=== PATIENT | female | born 1955 | race Caucasian/White ===

== ENCOUNTER 2022-11-07 01:15 | Outpatient (REF) | payer MEDICARE, MEDICAID, SELFPAY ==
[2022-11-07 22:24] LABS: Estimated GFR (African America 51 (>=60); Estimated GFR (Non-African Ame 42 (>=60)
[2022-11-15 14:15] LABS: Lithium (Eskalith(R)), Serum 0.7 mmol/L (0.5-1.2)
== END 2022-11-07 01:16 ==
LOC: LAB 01:15
PROVIDERS: PCP Psychiatry & Neurology Psychiatry; Visit Provider Psychiatry & Neurology Psychiatry
DX: F25.0 Schizoaffective disorder, bipolar type (principal)
CPT/HCPCS: 36415; 80178; 82565

== ENCOUNTER 2023-02-22 00:48 | Outpatient (REF) | payer MEDICARE, MEDICAID, SELFPAY ==
[2023-02-22 09:15] LABS: Basophils Absolute Auto 0.1 10^3/uL (0.0-0.1); Basophils Percent Auto 1.1 % (0.2-2.0); Eosinophils Absolute Auto 0.2 10^3/uL (0.0-0.7); Eosinophils Percent Auto 5.3 % (0.9-7.0); Hematocrit 38.3 % (36.0-48.0); Hemoglobin 12.1 g/dL (12.0-16.0); Immature Granulocytes Abs Auto 0.02 10^3/uL (0.00-0.03); Immature Granulocytes Pct Auto 0.4 % (0.0-0.5); Lymphocytes Absolute Auto 1.8 10^3/uL (1.2-3.8); Lymphocytes Percent Auto 38.7 % (20.5-60.0); Mean Corpuscular HGB Conc 31.6 g/dL (29.9-35.2); Mean Corpuscular Hemoglobin 32.2 pg (26.7-34.0); Mean Corpuscular Volume 101.9 fL (81.0-99.0); Mean Platelet Volume 10.8 fL (9.5-13.5); Monocytes Absolute Auto 0.4 10^3/uL (0.3-0.8); Monocytes Percent Auto 7.7 % (1.7-12.0); Neutrophils Absolute Auto 2.1 10^3/uL (1.4-6.5); Neutrophils Percent Auto 46.8 % (43.0-75.0); Platelet Count 225 10^3/uL (150-450); Red Blood Count 3.76 10^6/uL (4.20-5.40); Red Cell Distribution Width 12.9 % (11.0-15.0); White Blood Count 4.5 10^3/uL (4.0-11.0)
[2023-02-22 09:46] LABS: Alanine Aminotransferase 23 U/L (14-59); Albumin Globulin Ratio 1.1; Albumin Level 3.7 g/dL (3.4-5.0); Alkaline Phosphatase 120 U/L (46-116); Aspartate Amino Transferase 17 U/L (15-37); BUN Creatinine Ratio 17.5; Bilirubin Total 0.2 mg/dL (0.2-1.0); Calcium 9.7 mg/dL (8.5-10.1); Carbon Dioxide 23.8 mmol/L (21.0-32.0); Chloride 105 mmol/L (98-107); Chol HDL Ratio 2.3; Cholesterol 146 mg/dL (<=200); Estimated GFR (African America 47 (>=60); Estimated GFR (Non-African Ame 39 (>=60); Globulin 3.3 g/dL; Glucose 152 mg/dL (74-106); HDL Cholesterol 63 mg/dL (40-60); Potassium 3.8 mmol/L (3.5-5.1); Sodium 141 mmol/L (136-145); Thyroid Stimulating Hormone 0.809 uIU/mL (0.358-3.740); Triglycerides 68 mg/dL (<=150); VLDL CHOLESTEROL 13.6 mg/dL
== END 2023-02-22 00:49 | disposition home or self-care (01) ==
LOC: LAB 00:48
DX: Z00.00 Encounter for general adult medical examination without abnormal findings (principal)
CPT/HCPCS: 36415; 80053; 80061; 84443; 85025

== ENCOUNTER 2023-03-11 17:13 | Emergency (ER) | payer MEDICARE, MEDICAID, SELFPAY ==
[2023-03-11] VITALS (7 sets, daily range): BP systolic 142–162; BP diastolic 81–104; PULSE 76–96; RESP 17–18; TEMP 36.4; O2SAT 96–98; BMI 24.8
--- NOTE | 2023-03-11 17:15 | PC.NURSE ---
Received call from Lynn from [facility]. Patient is coming in by squad. Non-complaint with medications. Suffers from Schizoaffective disorder. already admitted at [facility]. She just needs medical clearance. Call [phone] when medically cleared.
--- NOTE | 2023-03-11 17:19 | ED_ITS ---
HPI - General Adult General Chief complaint: Psychiatric Symptoms Stated complaint: Medical Clearance, Psych disorder Time Seen by Provider: 03/11/23 17:17 History of Present Illness HPI narrative: Patient is a 67-year-old female who has a past medical history of schizoaffective disorder, bipolar type. Patient is type II diabetic, she has history of Parkinson's, headaches, chronic obstructive pulmonary disease, asthma. There is a note from [facility] from March 11 this stated last one patient had delusions that her daughter was committing suicide. She was better after she had talked to her daughter. Patient normally talks very loud to herself during appointments. Patient is a full code. Patient has a significant ALLERGY list, please refer to [facility] paperwork. Patient is on lithium. The only medication the patient is aware of is that she stopped S eroquel 3 weeks ago because she says there was a misunderstanding with her therapist and she thought that she was supposed to stop Seroquel 3 weeks ago because it was causing her to act out. Patient Has intermittent headaches, patient will typically take extra strength Tylenol for headaches that helps. She has no vision or hearing changes at this time. She is not delirious. No hallucinating. She is very appropriate, very pleasant, following commands, answers questions appropriately. Patient states she does have a headache and she is hungry, we will get her something to eat and drink. Patient is aware that she is getting admitted to [facility] for readjustment of her medications and starting her medications again. Patient is on Parkinson's medications, . All systems are negative except as noted/marked. All systems reviewed and otherwise negative. . Nurses note and vital signs reviewed and patient is not hypoxic. General: The patient appears well and in no apparent distress. Patient is resting comfortably on cart. Patient is not toxic, lethargic, or listless Skin: Warm, dry, no pallor noted. There is no rash noted. No petechiae, purpura. No signs of cutting or self harm. Head: Normocephalic, atraumatic Eye: Normal conjunctiva, no drainage, EOMI. PERRL Ears, Nose, Mouth, and Throat: oral mucosa is moist. Nares patent. Mouth without vesicles. Cardiovascular: Regular Rate and Rhythm, no murmur, gallop, rub Respiratory: Patient is in no distress, no accessory muscle use, lungs are clear to auscultation, no wheezing, rales or rhonchi Back: non-tender, no CVA tenderness bilaterally to percussion. No CT LS midline pain GI: soft, no tenderness to palpation, no masses appreciated. No rebound, guarding, or rigidity noted. No flank pain bilateral, No distention Musculoskeletal: Patient has full range of motion of all of the extremities, no motor, sensory, or focal neurological deficits Neurological: A&O x3, normal speech Psychiatric: Cooperative, Patient is not suicidal or homicidal. Related Data Home Medications Medication Instructions Recorded Confirmed amantadine HCl 100 mg tablet 100 mg PO DAILY 03/11/23 03/11/23 benztropine 0.5 mg tablet 0.5 mg PO DAILY 03/11/23 03/11/23 lithium carbonate 150 mg capsule 150 mg PO BID 03/11/23 03/11/23 quetiapine 300 mg tablet (Seroquel) 700 mg PO DAILY 03/11/23 03/11/23 Allergies Allergy/AdvReac Type Severity Reaction Status Date / Time Penicillins Allergy Severe Anaphylaxis Verified 03/11/23 17:21 codeine Allergy Verified 03/11/23 17:21 Sulfa (Sulfonamide AdvReac Mild Altered Verified 03/11/23 17:21 Antibiotics) Sense of Taste PFSH PFSH Social History Smoking status: Current every day smoker Exam Constitutional Vital Signs, click to edit/add: Last Vital Signs Temp 97.5 F L 03/11/23 17:16 Pulse 96 H 03/11/23 17:16 Resp 18 03/11/23 17:16 BP 142/86 H 03/11/23 18:35 Pulse Ox 97 03/11/23 17:16 O2 Del Method Room Air 03/11/23 17:16 Course Vital Signs Vital signs: Vital Signs Temperature 97.5 F L 03/11/23 17:16 Pulse Rate 96 H 03/11/23 17:16 Respiratory Rate 18 03/11/23 17:16 Blood Pressure 162/104 H 03/11/23 17:16 Pulse Oximetry 97 03/11/23 17:16 Oxygen Delivery Method Room Air 03/11/23 17:16 Temperature 97.5 F L 03/11/23 17:16 Pulse Rate 96 H 03/11/23 17:16 Respiratory Rate 18 03/11/23 17:16 Blood Pressure 142/86 H 03/11/23 18:35 Pulse Oximetry 97 03/11/23 17:16 Oxygen Delivery Method Room Air 03/11/23 17:16 Medical Decision Making MDM Narrative Medical decision making narrative: There is a pink slip that was signed at 5 PM the patient is admitted and accepted at [facility]. The 4th box was marked on the pink slip that the patient would benefit from treatment in the hospital setting. Patient represents a substantial risk of physical harm to herself and others if she remains at [facility] pending examination. 1830 Patient is medically clear. COVID is currently pending secondary to [facility]'s protocol. 1899 patient will be transitioned to Dr. Benitez to watch the patient until she is finally picked up and transferred to [facility]. Patient has already been medically cleared, pink slip is 30 been signed by psychiatrist, [address] [place] [address] at [facility] has Already accepted the patient. Critical care time 35 minutes exclusive from separate billable procedures that were performed. The following was considered in the determination of critical care but not limited to the level of medical decision making, intensive cardiac and/or respiratory monitoring, frequent vital sign monitoring, evaluation of laboratory studies, evaluation of radiographic studies, oxygen monitoring, and constant monitoring and speaking to family at bedside. Lab Data Labs: Lab Results 03/11/23 03/11/23 Range/Units 17:27 18:24 WBC 5.3 (4.0-11.0) 10^3/uL RBC 4.13 L (4.20-5.40) 10^6/uL Hgb 13.5 (12.0-16.0) g/dL Hct 40.8 (36.0-48.0) % MCV 98.8 (81.0-99.0) fL MCH 32.7 (26.7-34.0) pg MCHC 33.1 (29.9-35.2) g/dL RDW 12.4 (11.0-15.0) % Plt Count 238 (150-450) 10^3/uL MPV 10.1 (9.5-13.5) fL Neut % (Auto) 57.1 (43.0-75.0) % Lymph % (Auto) 29.9 (20.5-60.0) % [place] % (Auto) 8.3 (1.7-12.0) % Eos % (Auto) 3.2 (0.9-7.0) % Baso % (Auto) 1.1 (0.2-2.0) % Neut # (Auto) 3.0 (1.4-6.5) 10^3/uL Lymph # (Auto) 1.6 (1.2-3.8) 10^3/uL [place] # (Auto) 0.4 (0.3-0.8) 10^3/uL Eos # (Auto) 0.2 (0.0-0.7) 10^3/uL Baso # (Auto) 0.1 (0.0-0.1) 10^3/uL Abs Immat Gran (auto) 0.02 (0.00-0.03) 10^3/uL Imm/Tot Granulo (auto) 0.4 (0.0-0.5) % Sodium 135 L (136-145) mmol/L Potassium 4.1 (3.5-5.1) mmol/L Chloride 105 (98-107) mmol/L Carbon Dioxide 22.9 (21.0-32.0) mmol/L Anion Gap 11.2 BUN 34.0 H (7.0-18.0) mg/dL Creatinine 1.58 H (0.55-1.02) mg/dL Est GFR ( Amer) 40 L (>=60) Est GFR (Non-Af Amer) 33 L (>=60) BUN/Creatinine Ratio 21.5 Glucose 109 H (74-106) mg/dL Calcium 9.5 (8.5-10.1) mg/dL Total Bilirubin 0.2 (0.2-1.0) mg/dL AST 14 L (15-37) U/L ALT 30 (14-59) U/L Alkaline Phosphatase 120 H (46-116) U/L Total Protein 7.5 (6.4-8.2) g/dL Albumin 4.0 (3.4-5.0) g/dL Globulin 3.5 g/dL Albumin/Globulin Ratio 1.1 Urine Color Lt. yellow (YELLOW) Urine Clarity Slightly cloudy A (CLEAR) Urine pH 7.0 (5.0-9.0) Ur Specific [place] 1.010 (1.005-1.025) Urine Protein Negative (NEG/TRACE) mg/dL Urine Glucose (UA) Negative (NEGATIVE) mg/dL Urine Ketones Negative (NEGATIVE) mg/dL Urine Occult Blood Negative (NEGATIVE) Urine Nitrite Negative (NEGATIVE) Urine Bilirubin Negative (NEGATIVE) Urine Urobilinogen 0.2 (0.2-1.0) EU/dL Ur Leukocyte Esterase Moderate A (NEGATIVE) Urine RBC None seen (0-2) #/HPF Urine WBC 5-10 A (NONE SEEN) #/HPF Ur Squamous Epith Cells None seen (NONE/RARE) #/LPF Urine Crystals None seen (None Seen) #/HPF Urine Bacteria Trace A (NONE SEEN) #/HPF Urine Casts None seen (NONE SEEN) #/LPF Urine Mucus None seen (NONE SEEN) Ur Culture Indicated? Yes Salicylates <2.8 (<=19.9) mg/dL Urine Opiates Screen Negative (NEGATIVE) Ur Buprenorphine Scrn Negative (NEGATIVE) Ur Oxycodone Screen Negative (NEGATIVE) Urine Methadone Screen Negative (NEGATIVE) Ur Propoxyphene Screen Negative (NEGATIVE) Acetaminophen <2.0 L (10.0-30.0) ug/mL Ur Barbiturates Screen Negative (NEGATIVE) U Tricyclic Antidepress Positive A (NEGATIVE) Ur Phencyclidine Scrn Negative (NEGATIVE) Ur Amphetamines Screen Negative (NEGATIVE) U Methamphetamines Scrn Negative (NEGATIVE) U Benzodiazepines Scrn Negative (NEGATIVE) Urine Cocaine Screen Negative (NEGATIVE) U Cannabinoids Screen Negative (NEGATIVE) Ethanol Quant <3 mg/dL Discharge Plan Discharge Chief Complaint: Psychiatric Symptoms Clinical Impression: Chronic schizophrenia Patient Disposition: [facility] Discharge location: [address] Condition: Fair
--- NOTE | 2023-03-11 17:24 | ECG_ITS ---
The [facility] Test Date: 2023-03-11 Pat Name: MARTÍNEZ ALMEIDA Department: Room: - Gender: Female Casing In Line Feeder: : 1955 Requested By: 1030 Order Number: [id number] Reading MD: ALANNAH BRAND Measurements Intervals [place] Rate: 77 P: 56 W[place]: 184 QRS: -75 QRSD: 138 T: 50 QT: 412 QTc: 444 Interpretive Statements 1100 Sinus rhythm 2450 Right bundle branch block 2630 Left anterior fascicular block 3423 Possible septal myocardial infarction, probably old 9150 abnormal ECG No previous ECG available for comparison Electronically Signed On 03-12-2023 7:04:46 EDT by ALANNAH BRAND
[2023-03-11 17:38] LABS: Basophils Absolute Auto 0.1 10^3/uL (0.0-0.1); Basophils Percent Auto 1.1 % (0.2-2.0); Eosinophils Absolute Auto 0.2 10^3/uL (0.0-0.7); Eosinophils Percent Auto 3.2 % (0.9-7.0); Hematocrit 40.8 % (36.0-48.0); Hemoglobin 13.5 g/dL (12.0-16.0); Immature Granulocytes Abs Auto 0.02 10^3/uL (0.00-0.03); Immature Granulocytes Pct Auto 0.4 % (0.0-0.5); Lymphocytes Absolute Auto 1.6 10^3/uL (1.2-3.8); Lymphocytes Percent Auto 29.9 % (20.5-60.0); Mean Corpuscular HGB Conc 33.1 g/dL (29.9-35.2); Mean Corpuscular Hemoglobin 32.7 pg (26.7-34.0); Mean Corpuscular Volume 98.8 fL (81.0-99.0); Mean Platelet Volume 10.1 fL (9.5-13.5); Monocytes Absolute Auto 0.4 10^3/uL (0.3-0.8); Monocytes Percent Auto 8.3 % (1.7-12.0); Neutrophils Percent Auto 57.1 % (43.0-75.0); Platelet Count 238 10^3/uL (150-450); Red Blood Count 4.13 10^6/uL (4.20-5.40); Red Cell Distribution Width 12.4 % (11.0-15.0); White Blood Count 5.3 10^3/uL (4.0-11.0)
[2023-03-11 17:49] LABS: Alanine Aminotransferase 30 U/L (14-59); Albumin Globulin Ratio 1.1; Alkaline Phosphatase 120 U/L (46-116); Anion Gap 11.2; Aspartate Amino Transferase 14 U/L (15-37); BUN Creatinine Ratio 21.5; Bilirubin Total 0.2 mg/dL (0.2-1.0); Calcium 9.5 mg/dL (8.5-10.1); Carbon Dioxide 22.9 mmol/L (21.0-32.0); Chloride 105 mmol/L (98-107); Estimated GFR (African America 40 (>=60); Estimated GFR (Non-African Ame 33 (>=60); Ethanol <3 mg/dL; Globulin 3.5 g/dL; Glucose 109 mg/dL (74-106); Potassium 4.1 mmol/L (3.5-5.1); Salicylate <2.8 mg/dL (<=19.9); Sodium 135 mmol/L (136-145); Total Protein 7.5 g/dL (6.4-8.2)
[2023-03-11 17:51] LABS: Acetaminophen <2.0 ug/mL (10.0-30.0)
[2023-03-11 18:32] LABS: Bilirubin Urine NEGATIVE (NEGATIVE); Blood Urine NEGATIVE (NEGATIVE); Color Urine LT. YELLOW (YELLOW); Glucose Urine UA NEGATIVE (NEGATIVE); Ketones Urine NEGATIVE (NEGATIVE); Leukocyte Esterase Urine MODERATE (NEGATIVE); Nitrite Urine NEGATIVE (NEGATIVE); Protein Urine NEGATIVE (NEG/TRACE); Urobilinogen Urine 0.2 EU/dL (0.2-1.0)
[2023-03-11 18:33] LABS: Clarity Urine SLIGHTLY CLOUDY (CLEAR); Urine Microscopic Indicated YES
[2023-03-11 18:38] LABS: Bacteria Urine TRACE #/HPF (NONE SEEN); Cast Seen? NONE SEEN #/LPF (NONE SEEN); Crystals Seen? None Seen #/HPF (None Seen); Mucus Urine NONE SEEN (NONE SEEN); RBC Urine NONE SEEN #/HPF (0-2); Squamous Epithelial Cell Urine NONE SEEN #/LPF (NONE/RARE); Urine Culture Indicated YES
[2023-03-11 18:39] LABS: Amphetamine Screen Urine NEGATIVE (NEGATIVE); Barbiturates Screen Urine NEGATIVE (NEGATIVE); Benzodiazepines Screen Urine NEGATIVE (NEGATIVE); Buprenorphine Screen Urine NEGATIVE (NEGATIVE); Cannabinoid Screen Urine NEGATIVE (NEGATIVE); Cocaine Screen Urine NEGATIVE (NEGATIVE); Methadone Screen Urine NEGATIVE (NEGATIVE); Methamphetamines Screen Urine NEGATIVE (NEGATIVE); Opiate Screen Urine NEGATIVE (NEGATIVE); Oxycodone Screen Urine NEGATIVE (NEGATIVE); Phencyclidine Screen Urine NEGATIVE (NEGATIVE)
[2023-03-11 18:41] LABS: Tricyclic Antidepressant Urine POSITIVE (NEGATIVE)
[2023-03-11] MEDS: ACETAMINOPHEN 325 MG TABLET 650 MG PO (19:07)
[2023-03-11 19:14] LABS: SARS-CoV-2 Ag NEGATIVE (NEGATIVE)
--- NOTE | 2023-03-11 19:20 | ED.PSYCH1 ---
HPI - Psych General Chief Complaint: Psychiatric Symptoms Stated Complaint: Medical Clearance, Psych disorder Time Seen by Provider: 03/11/23 17:17 Source: Reports other Source comment: EMS Mode of arrival: ambulance Limitations: Reports altered mental status History of Present Illness HPI Narrative: The patient was initially seen by Dr. Reza and signed out to me after discussing the case with him thoroughly. Please see his full history and physical. Related Data Home Medications Medication Instructions Recorded Confirmed amantadine HCl 100 mg tablet 100 mg PO DAILY 03/11/23 03/11/23 benztropine 0.5 mg tablet 0.5 mg PO DAILY 03/11/23 03/11/23 lithium carbonate 150 mg capsule 150 mg PO BID 03/11/23 03/11/23 quetiapine 300 mg tablet (Seroquel) 700 mg PO DAILY 03/11/23 03/11/23 Allergies Allergy/AdvReac Type Severity Reaction Status Date / Time Penicillins Allergy Severe Anaphylaxis Verified 03/11/23 17:21 codeine Allergy Verified 03/11/23 17:21 Sulfa (Sulfonamide AdvReac Mild Altered Verified 03/11/23 17:21 Antibiotics) Sense of Taste PFSH PFSH Social History Smoking status: Current every day smoker Exam Constitutional Vital Signs, click to edit/add: Last Vital Signs Temp 97.5 F L 03/11/23 17:16 Pulse 76 03/11/23 17:30 Resp 18 03/11/23 17:30 BP 162/81 H 03/11/23 19:09 Pulse Ox 96 03/11/23 19:10 O2 Del Method Room Air 03/11/23 17:16 Course Vital Signs Vital signs: Vital Signs Temperature 97.5 F L 03/11/23 17:16 Pulse Rate 96 H 03/11/23 17:16 Respiratory Rate 18 03/11/23 17:16 Blood Pressure 162/104 H 03/11/23 17:16 Pulse Oximetry 97 03/11/23 17:16 Oxygen Delivery Method Room Air 03/11/23 17:16 Temperature 97.5 F L 03/11/23 17:16 Pulse Rate 76 03/11/23 17:30 Respiratory Rate 18 03/11/23 17:30 Blood Pressure 162/81 H 03/11/23 19:09 Pulse Oximetry 96 03/11/23 19:10 Oxygen Delivery Method Room Air 03/11/23 17:16 MDM - Psych MDM Narrative Medical decision making narrative: urinalysis indicates mild urinary tract infection and she started on Macrobid here and given a written prescription for that medication. She is being transferred to [facility]. Lab Data Attestation: I reviewed the patient's lab results. Labs: Lab Results 03/11/23 03/11/23 03/11/23 Range/Units 17:27 18:24 18:47 WBC 5.3 (4.0-11.0) 10^3/uL RBC 4.13 L (4.20-5.40) 10^6/uL Hgb 13.5 (12.0-16.0) g/dL Hct 40.8 (36.0-48.0) % MCV 98.8 (81.0-99.0) fL MCH 32.7 (26.7-34.0) pg MCHC 33.1 (29.9-35.2) g/dL RDW 12.4 (11.0-15.0) % Plt Count 238 (150-450) 10^3/uL MPV 10.1 (9.5-13.5) fL Neut % (Auto) 57.1 (43.0-75.0) % Lymph % (Auto) 29.9 (20.5-60.0) % [place] % (Auto) 8.3 (1.7-12.0) % Eos % (Auto) 3.2 (0.9-7.0) % Baso % (Auto) 1.1 (0.2-2.0) % Neut # (Auto) 3.0 (1.4-6.5) 10^3/uL Lymph # (Auto) 1.6 (1.2-3.8) 10^3/uL [place] # (Auto) 0.4 (0.3-0.8) 10^3/uL Eos # (Auto) 0.2 (0.0-0.7) 10^3/uL Baso # (Auto) 0.1 (0.0-0.1) 10^3/uL Abs Immat Gran (auto) 0.02 (0.00-0.03) 10^3/uL Imm/Tot Granulo (auto) 0.4 (0.0-0.5) % Sodium 135 L (136-145) mmol/L Potassium 4.1 (3.5-5.1) mmol/L Chloride 105 (98-107) mmol/L Carbon Dioxide 22.9 (21.0-32.0) mmol/L Anion Gap 11.2 BUN 34.0 H (7.0-18.0) mg/dL Creatinine 1.58 H (0.55-1.02) mg/dL Est GFR ( Amer) 40 L (>=60) Est GFR (Non-Af Amer) 33 L (>=60) BUN/Creatinine Ratio 21.5 Glucose 109 H (74-106) mg/dL Calcium 9.5 (8.5-10.1) mg/dL Total Bilirubin 0.2 (0.2-1.0) mg/dL AST 14 L (15-37) U/L ALT 30 (14-59) U/L Alkaline Phosphatase 120 H (46-116) U/L Total Protein 7.5 (6.4-8.2) g/dL Albumin 4.0 (3.4-5.0) g/dL Globulin 3.5 g/dL Albumin/Globulin Ratio 1.1 Urine Color Lt. yellow (YELLOW) Urine Clarity Slightly cloudy A (CLEAR) Urine pH 7.0 (5.0-9.0) Ur Specific [place] 1.010 (1.005-1.025) Urine Protein Negative (NEG/TRACE) mg/dL Urine Glucose (UA) Negative (NEGATIVE) mg/dL Urine Ketones Negative (NEGATIVE) mg/dL Urine Occult Blood Negative (NEGATIVE) Urine Nitrite Negative (NEGATIVE) Urine Bilirubin Negative (NEGATIVE) Urine Urobilinogen 0.2 (0.2-1.0) EU/dL Ur Leukocyte Esterase Moderate A (NEGATIVE) Urine RBC None seen (0-2) #/HPF Urine WBC 5-10 A (NONE SEEN) #/HPF Ur Squamous Epith Cells None seen (NONE/RARE) #/LPF Urine Crystals None seen (None Seen) #/HPF Urine Bacteria Trace A (NONE SEEN) #/HPF Urine Casts None seen (NONE SEEN) #/LPF Urine Mucus None seen (NONE SEEN) Ur Culture Indicated? Yes Salicylates <2.8 (<=19.9) mg/dL Urine Opiates Screen Negative (NEGATIVE) Ur Buprenorphine Scrn Negative (NEGATIVE) Ur Oxycodone Screen Negative (NEGATIVE) Urine Methadone Screen Negative (NEGATIVE) Ur Propoxyphene Screen Negative (NEGATIVE) Acetaminophen <2.0 L (10.0-30.0) ug/mL Ur Barbiturates Screen Negative (NEGATIVE) U Tricyclic Antidepress Positive A (NEGATIVE) Ur Phencyclidine Scrn Negative (NEGATIVE) Ur Amphetamines Screen Negative (NEGATIVE) U Methamphetamines Scrn Negative (NEGATIVE) U Benzodiazepines Scrn Negative (NEGATIVE) Urine Cocaine Screen Negative (NEGATIVE) U Cannabinoids Screen Negative (NEGATIVE) Ethanol Quant <3 mg/dL SARS-CoV-2 (PCR) Negative (NEGATIVE) Discharge Plan Discharge Chief Complaint: Psychiatric Symptoms Clinical Impression: Chronic schizophrenia, Urinary tract infection Patient Disposition: [facility] Time of Disposition Decision: 19:18 Discharge location: [address] Condition: Fair Mode of Transportation: EMS
[2023-03-11] MEDS: NITROFURANTOIN MONOHYD/MAC-CRST 100 MG CAPSULE PO (19:34)
[2023-03-11] MEDS: TOPIRAMATE 25 MG TABLET 75 MG PO (23:22)
[2023-03-11] MEDS: LITHIUM CARBONATE 150 MG CAPSULE PO (23:22)
[2023-03-11] MEDS: AMANTADINE HCL 100 MG CAPSULE PO (23:22)
[2023-03-11] MEDS: BENZTROPINE MESYLATE 1 MG TABLET PO (23:22)
[2023-03-12 15:52] LABS: SARS-CoV-2 NAA INVALID (NOT DETECTE)
== END 2023-03-11 23:47 ==
PROVIDERS: Emergency Medicine; Emergency Provider Emergency Medicine
DX: F20.9 Schizophrenia, unspecified (principal); N39.0 Urinary tract infection, site not specified; E11.9 Type 2 diabetes mellitus without complications; J44.9 Chronic obstructive pulmonary disease, unspecified; Z79.899 Other long term (current) drug therapy; F17.210 Nicotine dependence, cigarettes, uncomplicated; Z20.822 Contact with and (suspected) exposure to COVID-19; G20.A1 Parkinson's disease without dyskinesia, without mention of fluctuations
CPT/HCPCS: 36415; 80053; 80178; 80179; 80307; 80320; 80329; 81001; 85025; 87086; 87635; 87811; 93005; 99285; U0003

== ENCOUNTER 2023-03-21 14:00 | Outpatient (REF) | payer MEDICARE, MEDICAID, SELFPAY ==
[2023-03-22 08:14] LABS: Bilirubin Urine NEGATIVE (NEGATIVE); Blood Urine NEGATIVE (NEGATIVE); Clarity Urine CLEAR (CLEAR); Color Urine LT. YELLOW (YELLOW); Glucose Urine UA NEGATIVE (NEGATIVE); Ketones Urine NEGATIVE (NEGATIVE); Leukocyte Esterase Urine TRACE (NEGATIVE); Nitrite Urine NEGATIVE (NEGATIVE); Protein Urine NEGATIVE (NEG/TRACE); Specific Gravity Urine <=1.005 (1.005-1.025); Urobilinogen Urine 0.2 EU/dL (0.2-1.0); pH Urine 6.5 (5.0-9.0)
[2023-03-22 08:16] LABS: Urine Microscopic Indicated YES
[2023-03-22 08:22] LABS: Bacteria Urine TRACE #/HPF (NONE SEEN); Cast Seen? NONE SEEN #/LPF (NONE SEEN); Crystals Seen? None Seen #/HPF (None Seen); Mucus Urine NONE SEEN (NONE SEEN); RBC Urine 0-2 #/HPF (0-2); Squamous Epithelial Cell Urine RARE #/LPF (NONE/RARE); Urine Culture Indicated NO; WBC Urine 0-2 #/HPF (NONE SEEN)
== END 2023-03-21 14:01 | disposition home or self-care (01) ==
LOC: LAB 14:00
DX: R30.0 Dysuria (principal)
CPT/HCPCS: 81001

== ENCOUNTER 2023-03-25 19:19 | Emergency (ER) | payer MEDICARE, MEDICAID, SELFPAY ==
[2023-03-25 19:21] VITALS: BP 186/95; PULSE 86; RESP 16; TEMP 36.4; O2SAT 98; BMI 24.8
--- NOTE | 2023-03-25 19:29 | ECG_ITS ---
[facility] Test Date: 2023-03-25 Pat Name: MARTÍNEZ ALMEIDA Department: Room: - Gender: Female Type Cutter: : 1955 Requested By: Order Number: [id number] Reading MD: ALANNAH BRAND Measurements Intervals [place] Rate: 73 P: 46 CT: 178 QRS: -62 QRSD: 148 T: 13 QT: 428 QTc: 454 Interpretive Statements 1100 Sinus rhythm 2450 Right bundle branch block 2630 Left anterior fascicular block 9150 abnormal ECG Compared to ECG 03/11/2023 17:24:05 No significant changes Electronically Signed On 03-26-2023 7:13:52 EDT by ALANNAH BRAND
--- NOTE | 2023-03-25 19:31 | ED_ITS ---
HPI - Psych General Chief Complaint: Psychiatric Symptoms Stated Complaint: psychiatric Time Seen by Provider: 03/25/23 19:25 Source: Reports patient Mode of arrival: ambulance Limitations: Reports no limitations History of Present Illness HPI Narrative: patient is a 67-year-old female to history of schizophrenia who presents to the emergency department by ambulance after being combative and agitated at the [facility] where she has a resident. She was recently admitted to [facility] and had an adjustment of her Seroquel. The nursing staff at [facility] states that the patient was combative, agitated and screaming and they could not contact the physician who is in charge of her Seroquel dosage so they sent her to the emergency department. Patient on arrival to the Emergency Room is calm, cooperative but refuses to speak about the incident at [facility]. She denies any focal medical complaints. She denies suicidal or homicidal ideation. Related Data Home Medications Medication Instructions Recorded Confirmed amantadine HCl 100 mg tablet 100 mg PO BID 03/11/23 03/25/23 benztropine 0.5 mg tablet 0.5 mg PO BID 03/11/23 03/25/23 lithium carbonate 150 mg capsule 150 mg PO BID 03/11/23 03/25/23 quetiapine 300 mg tablet (Seroquel) 700 mg PO DAILY 03/11/23 03/25/23 albuterol sulfate 90 mcg/actuation 2 inh inhalation Q6H PRN shortness 03/25/23 03/25/23 breath activated powder inhaler of breath or wheezing benzonatate 100 mg capsule 100 mg PO TID 03/25/23 03/25/23 calcium carbonate 500 mg-vitamin 1 tab PO DAILY 03/25/23 03/25/23 D3 5 mcg (200 unit) tablet (Oyster Shell Calcium-Vitamin D3) clonidine HCl 0.1 mg tablet 0.1 mg PO DAILY 03/25/23 03/25/23 dextromethorphan-guaifenesin 30 1 tab PO Q12H PRN congestion 03/25/23 03/25/23 mg-600 mg tablet extended hr (Mucus DM) docusate sodium 100 mg capsule 100 mg PO DAILY 03/25/23 03/25/23 famotidine 20 mg tablet 20 mg PO Q12H 03/25/23 03/25/23 fluticasone 250 mcg-salmeterol 50 1 inh inhalation Q12H 03/25/23 03/25/23 mcg/dose blistr powdr for inhalation (Wixela Inhub) fluticasone propionate 50 1 spray intranasal BID 03/25/23 03/25/23 mcg/actuation nasal spray,suspension (24 Hour Allergy Relief) folic acid 0.8 mg capsule 800 mcg PO DAILY 03/25/23 03/25/23 hydrocodone 5 mg-acetaminophen 325 1 tab PO Q6H PRN pain 03/25/23 03/25/23 mg tablet loratadine 10 mg tablet 10 mg PO Q24H 03/25/23 03/25/23 mecobalamin (vitamin B12) 5,000 5,000 mcg PO DAILY 03/25/23 03/25/23 mcg chewable tablet meloxicam 15 mg tablet 15 mg PO DAILY 03/25/23 03/25/23 polyethylene glycol 3350 17 17 g PO DAILY 03/25/23 03/25/23 gram/dose oral powder (Miralax) quetiapine 400 mg tablet,extended 400 mg PO DAILY 03/25/23 03/25/23 release 24 hr risperidone microspheres 25 mg/2 25 mg IM Q14D 03/25/23 03/25/23 mL intramuscular susp,ext release (Risperdal Consta) topiramate 25 mg tablet (Topamax) 25 mg PO BEDTIME 03/25/23 03/25/23 Allergies Allergy/AdvReac Type Severity Reaction Status Date / Time aspirin Allergy Severe Verified 03/25/23 19:25 Barbiturates Allergy Severe Verified 03/25/23 19:25 fluoxetine Allergy Severe Verified 03/25/23 19:25 meperidine Allergy Severe Verified 03/25/23 19:25 Penicillins Allergy Severe Anaphylaxis Verified 03/25/23 19:25 codeine Allergy Verified 03/25/23 19:25 Sulfa (Sulfonamide AdvReac Mild Altered Verified 03/25/23 19:25 Antibiotics) Sense of Taste Review of Systems ROS Constitutional Denies: fever or chills Cardiovascular Denies: chest pain Respiratory Denies: shortness of breath Gastrointestinal Denies: nausea or vomiting Musculoskeletal Denies: back pain Integumentary/Breast Denies: rash Neurological Denies: headache PFSH PFSH Social History Smoking status: Current every day smoker Exam Narrative Exam Narrative: Gen.: Awake, alert, in no distress Head: Normocephalic, atraumatic ENT: Moist mucous membranes Respiratory: No respiratory distress, lungs clear bilaterally Cardio: Regular rate and rhythm Extremities: Moves extremities equally, no injuries noted Psych: flat affect Neuro: No focal neuro deficit Skin: Warm, dry, intact Constitutional Vital Signs, click to edit/add: Last Vital Signs Temp 97.5 F L 03/25/23 19:21 Pulse 86 03/25/23 19:21 Resp 16 03/25/23 19:21 BP 186/95 H 03/25/23 19:21 Pulse Ox 98 03/25/23 19:21 O2 Del Method Room Air 03/25/23 19:21 Course Vital Signs Vital signs: Vital Signs Temperature 97.5 F L 03/25/23 19:21 Pulse Rate 86 03/25/23 19:21 Respiratory Rate 16 03/25/23 19:21 Blood Pressure 186/95 H 03/25/23 19:21 Pulse Oximetry 98 03/25/23 19:21 Oxygen Delivery Method Room Air 03/25/23 19:21 Temperature 97.5 F L 03/25/23 19:21 Pulse Rate 86 03/25/23 19:21 Respiratory Rate 16 03/25/23 19:21 Blood Pressure 186/95 H 03/25/23 19:21 Pulse Oximetry 98 03/25/23 19:21 Oxygen Delivery Method Room Air 03/25/23 19:21 MDM - Psych MDM Narrative Medical decision making narrative: lab studies obtained, urine specimen, EKG, Covid test all unremarkable and faxed to [facility]. He was accepted for readmission to [facility] by Dr. Davis for psychiatry. Patient is calm and cooperative in the Emergency Room, assisted living reports concern for possible harm to the staff due to the patient being emotionally labile and potentially emotionally unstable. [place] slip requested by [facility], patient was not noted to have any violent behavior in the Emergency Room and did not require any medication for transport. Medical Records Attestation: I reviewed the patient's medical records. Lab Data Attestation: I reviewed the patient's lab results. Labs: Lab Results 03/25/23 03/25/23 Range/Units 19:43 19:54 WBC 5.7 (4.0-11.0) 10^3/uL RBC 3.89 L (4.20-5.40) 10^6/uL Hgb 12.6 (12.0-16.0) g/dL Hct 37.8 (36.0-48.0) % MCV 97.2 (81.0-99.0) fL MCH 32.4 (26.7-34.0) pg MCHC 33.3 (29.9-35.2) g/dL RDW 12.5 (11.0-15.0) % Plt Count 233 (150-450) 10^3/uL MPV 10.0 (9.5-13.5) fL Neut % (Auto) 57.6 (43.0-75.0) % Lymph % (Auto) 30.4 (20.5-60.0) % [place] % (Auto) 8.7 (1.7-12.0) % Eos % (Auto) 2.4 (0.9-7.0) % Baso % (Auto) 0.7 (0.2-2.0) % Neut # (Auto) 3.3 (1.4-6.5) 10^3/uL Lymph # (Auto) 1.7 (1.2-3.8) 10^3/uL [place] # (Auto) 0.5 (0.3-0.8) 10^3/uL Eos # (Auto) 0.1 (0.0-0.7) 10^3/uL Baso # (Auto) 0.0 (0.0-0.1) 10^3/uL Abs Immat Gran (auto) 0.01 (0.00-0.03) 10^3/uL Imm/Tot Granulo (auto) 0.2 (0.0-0.5) % Sodium 139 (136-145) mmol/L Potassium 4.0 (3.5-5.1) mmol/L Chloride 105 (98-107) mmol/L Carbon Dioxide 24.5 (21.0-32.0) mmol/L Anion Gap 13.5 BUN 29.0 H (7.0-18.0) mg/dL Creatinine 1.53 H (0.55-1.02) mg/dL Est GFR ( Amer) 41 L (>=60) Est GFR (Non-Af Amer) 34 L (>=60) BUN/Creatinine Ratio 19.0 Glucose 91 (74-106) mg/dL Calcium 9.6 (8.5-10.1) mg/dL Total Bilirubin 0.4 (0.2-1.0) mg/dL AST 18 (15-37) U/L ALT 28 (14-59) U/L Alkaline Phosphatase 117 H (46-116) U/L Total Protein 7.4 (6.4-8.2) g/dL Albumin 4.0 (3.4-5.0) g/dL Globulin 3.4 g/dL Albumin/Globulin Ratio 1.2 Urine Color Lt. yellow (YELLOW) Urine Clarity Clear (CLEAR) Urine pH 7.0 (5.0-9.0) Ur Specific [place] <=1.005 A (1.005-1.025) Urine Protein Negative (NEG/TRACE) mg/dL Urine Glucose (UA) Negative (NEGATIVE) mg/dL Urine Ketones Negative (NEGATIVE) mg/dL Urine Occult Blood Negative (NEGATIVE) Urine Nitrite Negative (NEGATIVE) Urine Bilirubin Negative (NEGATIVE) Urine Urobilinogen 0.2 (0.2-1.0) EU/dL Ur Leukocyte Esterase Negative (NEGATIVE) Salicylates <2.8 (<=19.9) mg/dL Urine Opiates Screen Negative (NEGATIVE) Ur Buprenorphine Scrn Negative (NEGATIVE) Ur Oxycodone Screen Negative (NEGATIVE) Urine Methadone Screen Negative (NEGATIVE) Ur Propoxyphene Screen Negative (NEGATIVE) Acetaminophen <2.0 L (10.0-30.0) ug/mL Ur Barbiturates Screen Negative (NEGATIVE) U Tricyclic Antidepress Positive A (NEGATIVE) Ur Phencyclidine Scrn Negative (NEGATIVE) Ur Amphetamines Screen Negative (NEGATIVE) U Methamphetamines Scrn Negative (NEGATIVE) U Benzodiazepines Scrn Negative (NEGATIVE) Urine Cocaine Screen Negative (NEGATIVE) U Cannabinoids Screen Negative (NEGATIVE) Ethanol Quant <3 mg/dL SARS-CoV-2 (PCR) Negative (NEGATIVE) ECG Data Attestation: I personally reviewed and interpreted this ECG as follows: (normal sinus rhythm at a rate of seventy-three, no acute ST elevation or ectopy. Right bundle branch block noted. EKG reviewed by attending physician) ECG interpretation date: 03/25/23 ECG interpretation time: 19:37 Discharge Plan Discharge Chief Complaint: Psychiatric Symptoms Clinical Impression: Violent behavior Patient Disposition: [facility] Time of Disposition Decision: 22:07 Discharge Location: [facility] Condition: Good Prescriptions / Home Meds: No Action benzonatate 100 mg capsule 100 mg PO TID clonidine HCl 0.1 mg tablet 0.1 mg PO DAILY docusate sodium 100 mg capsule 100 mg PO DAILY famotidine 20 mg tablet 20 mg PO Q12H fluticasone propionate [24 Hour Allergy Relief] 50 mcg/actuation spray,martin spension 1 spray intranasal BID Rx Instructions: administer into each nostril folic acid 0.8 mg capsule 800 mcg PO DAILY loratadine 10 mg tablet 10 mg PO Q24H meloxicam 15 mg tablet 15 mg PO DAILY calcium carbonate-vitamin D3 [Oyster Shell Calcium-Vit D3] 500 mg-5 mcg (200 unit) tablet 1 tab PO DAILY fluticasone propion-salmeterol [Wixela Inhub] 250-50 mcg/dose blister with device 1 inh INHALATION Q12H polyethylene glycol 3350 [Miralax] 17 gram/dose powder 17 g PO DAILY quetiapine 400 mg tablet extended release 24 hr 400 mg PO DAILY Risperdal Consta 25 mg/2 mL suspension,extended rel recon 25 mg IM Q14D topiramate [Topamax] 25 mg tablet 25 mg PO BEDTIME mecobalamin (vitamin B12) 5,000 mcg tablet,chewable 5,000 mcg PO DAILY albuterol sulfate 90 mcg/actuation aerosol powdr breath activated 2 inh inhalation Q6H PRN (Reason: shortness of breath or wheezing) hydrocodone-acetaminophen 5-325 mg tablet 1 tab PO Q6H PRN (Reason: pain) Mucus DM 30-600 mg tablet extended release 12 hr 1 tab PO Q12H PRN (Reason: congestion) amantadine HCl 100 mg tablet 100 mg PO BID benztropine 0.5 mg tablet 0.5 mg PO BID quetiapine [Seroquel] 300 mg tablet 700 mg PO DAILY lithium carbonate 150 mg capsule 150 mg PO BID Referrals: Physician,Non-Staff, MD [Primary Care Provider] - 1 week
[2023-03-25 19:59] LABS: Bilirubin Urine NEGATIVE (NEGATIVE); Blood Urine NEGATIVE (NEGATIVE); Clarity Urine CLEAR (CLEAR); Color Urine LT. YELLOW (YELLOW); Glucose Urine UA NEGATIVE (NEGATIVE); Ketones Urine NEGATIVE (NEGATIVE); Leukocyte Esterase Urine NEGATIVE (NEGATIVE); Nitrite Urine NEGATIVE (NEGATIVE); Protein Urine NEGATIVE (NEG/TRACE); Specific Gravity Urine <=1.005 (1.005-1.025); Urobilinogen Urine 0.2 EU/dL (0.2-1.0)
[2023-03-25 20:01] LABS: Urine Microscopic Indicated NO
[2023-03-25 20:03] LABS: Basophils Percent Auto 0.7 % (0.2-2.0); Eosinophils Absolute Auto 0.1 10^3/uL (0.0-0.7); Eosinophils Percent Auto 2.4 % (0.9-7.0); Hematocrit 37.8 % (36.0-48.0); Hemoglobin 12.6 g/dL (12.0-16.0); Immature Granulocytes Abs Auto 0.01 10^3/uL (0.00-0.03); Immature Granulocytes Pct Auto 0.2 % (0.0-0.5); Lymphocytes Absolute Auto 1.7 10^3/uL (1.2-3.8); Lymphocytes Percent Auto 30.4 % (20.5-60.0); Mean Corpuscular HGB Conc 33.3 g/dL (29.9-35.2); Mean Corpuscular Hemoglobin 32.4 pg (26.7-34.0); Mean Corpuscular Volume 97.2 fL (81.0-99.0); Monocytes Absolute Auto 0.5 10^3/uL (0.3-0.8); Monocytes Percent Auto 8.7 % (1.7-12.0); Neutrophils Absolute Auto 3.3 10^3/uL (1.4-6.5); Neutrophils Percent Auto 57.6 % (43.0-75.0); Platelet Count 233 10^3/uL (150-450); Red Blood Count 3.89 10^6/uL (4.20-5.40); Red Cell Distribution Width 12.5 % (11.0-15.0); White Blood Count 5.7 10^3/uL (4.0-11.0)
[2023-03-25 20:15] LABS: SARS-CoV-2 Ag NEGATIVE (NEGATIVE)
[2023-03-25 20:17] LABS: Amphetamine Screen Urine NEGATIVE (NEGATIVE); Barbiturates Screen Urine NEGATIVE (NEGATIVE); Benzodiazepines Screen Urine NEGATIVE (NEGATIVE); Buprenorphine Screen Urine NEGATIVE (NEGATIVE); Cannabinoid Screen Urine NEGATIVE (NEGATIVE); Cocaine Screen Urine NEGATIVE (NEGATIVE); Methadone Screen Urine NEGATIVE (NEGATIVE); Methamphetamines Screen Urine NEGATIVE (NEGATIVE); Opiate Screen Urine NEGATIVE (NEGATIVE); Oxycodone Screen Urine NEGATIVE (NEGATIVE); Phencyclidine Screen Urine NEGATIVE (NEGATIVE); Tricyclic Antidepressant Urine POSITIVE (NEGATIVE)
[2023-03-25 20:36] LABS: Acetaminophen <2.0 ug/mL (10.0-30.0); Alanine Aminotransferase 28 U/L (14-59); Albumin Globulin Ratio 1.2; Alkaline Phosphatase 117 U/L (46-116); Anion Gap 13.5; Aspartate Amino Transferase 18 U/L (15-37); Bilirubin Total 0.4 mg/dL (0.2-1.0); Calcium 9.6 mg/dL (8.5-10.1); Carbon Dioxide 24.5 mmol/L (21.0-32.0); Chloride 105 mmol/L (98-107); Estimated GFR (African America 41 (>=60); Estimated GFR (Non-African Ame 34 (>=60); Ethanol <3 mg/dL; Globulin 3.4 g/dL; Glucose 91 mg/dL (74-106); Salicylate <2.8 mg/dL (<=19.9); Sodium 139 mmol/L (136-145); Total Protein 7.4 g/dL (6.4-8.2)
[2023-03-25 22:55] VITALS: BP 135/82; RESP 16; O2SAT 97
[2023-03-26 15:27] LABS: SARS-CoV-2 NAA NOT DETECTED (NOT DETECTE)
== END 2023-03-26 00:14 | disposition short-term general hospital (02) ==
PROVIDERS: Physician Assistant; Emergency Provider Emergency Medicine
DX: R45.6 Violent behavior (principal); F20.9 Schizophrenia, unspecified; Z79.899 Other long term (current) drug therapy; F17.210 Nicotine dependence, cigarettes, uncomplicated; Z20.822 Contact with and (suspected) exposure to COVID-19
CPT/HCPCS: 36415; 80053; 80178; 80179; 80307; 80320; 80329; 81003; 85025; 87635; 87811; 93005; 99285

== ENCOUNTER 2023-04-10 06:24 | Outpatient (REF) | payer MEDICARE, MEDICAID, SELFPAY ==
[2023-04-10 08:15] LABS: Estimated GFR (African America 53 (>=60); Estimated GFR (Non-African Ame 44 (>=60)
[2023-04-11 12:12] LABS: Lithium (Eskalith(R)), Serum 0.5 mmol/L (0.5-1.2)
== END 2023-04-10 06:25 | disposition home or self-care (01) ==
LOC: LAB 06:24
DX: Z51.81 Encounter for therapeutic drug level monitoring (principal); Z79.899 Other long term (current) drug therapy
CPT/HCPCS: 36415; 80178; 82565

== ENCOUNTER 2023-04-22 20:55 | Emergency (ER) | payer MEDICARE, MEDICAID, SELFPAY ==
[2023-04-22 20:58] VITALS: BP 141/76; PULSE 67; RESP 18; O2SAT 99; BMI 25.7
--- NOTE | 2023-04-22 21:07 | ECG_ITS ---
The [facility] Test Date: 2023-04-22 Pat Name: MARTÍNEZ ALMEIDA Department: Room: - Gender: Female [employer]: : 1955 Requested By: [id number] Order Number: [id number] Reading MD: ALANNAH BRAND Measurements Intervals [place] Rate: 62 P: 58 [place]: 190 QRS: -40 QRSD: 144 T: 42 QT: 458 QTc: 462 Interpretive Statements 1100 Sinus rhythm 2450 Right bundle branch block 7200 Abnormal left axis deviation 9150 abnormal ECG Compared to ECG 03/25/2023 19:35:41 Electronically Signed On 04-23-2023 7:13:13 EST by ALANNAH BRAND
--- NOTE | 2023-04-22 21:07 | XR_ITS ---
The [address] [address] Patient Name: MARTÍNEZ ALMEIDA MRN: [id number] date: 1955 Sex: F Assigned Patient Location: ER Current Patient Location: ED.MAIN Accession/Order Number: [id number] Exam Date: 04/22/2023 21:17 Report Date: 04/22/2023 21:42 At the request of: MARY CARMEN MARTIN Procedure: XR chest 1V XR chest 1V 04/22/2023 9:17 PM EST CLINICAL INDICATION: Cough COMPARISON: 10/20/2021 TECHNIQUE: Portable semiupright AP view of the chest. FINDINGS: Right humeral hardware is noted. The cardiomediastinal silhouette and pulmonary vasculature are within normal limits. There is elevation of the left hemidiaphragm with retrocardiac opacity. No pneumothorax or pleural effusion. No displaced rib fractures. Osseous structures demonstrate degenerative changes. Soft tissues are grossly normal. XR/XR chest 1V IMPRESSION: Elevation of the left hemidiaphragm with retrocardiac opacity which may represent atelectasis or pneumonia. Electronically authenticated by: MIRANDA CANAS Date: 04/22/2023 21:42
--- NOTE | 2023-04-22 21:08 | ED.URI1 ---
HPI - URI/Sore Throat General Chief Complaint: Upper Respiratory Infection Stated Complaint: general weekness Time Seen by Provider: 04/22/23 20:58 Source: patient Limitations: no limitations History of Present Illness HPI Narrative: 67 -year-old female presents for a cough. She's had this for several weeks and perhaps a month. It is not associated with hemoptysis and she hasn't had a known fever. She lives in assisted living. She's been coughing up white phlegm. She is also feeling weak. Related Data Home Medications Medication Instructions Recorded Confirmed amantadine HCl 100 mg tablet 100 mg PO BID 03/11/23 04/22/23 benztropine 0.5 mg tablet 0.5 mg PO BID 03/11/23 04/22/23 lithium carbonate 150 mg capsule 150 mg PO BID 03/11/23 04/22/23 quetiapine 300 mg tablet (Seroquel) 700 mg PO DAILY 03/11/23 03/25/23 albuterol sulfate 90 mcg/actuation 2 inh inhalation Q6H PRN shortness 03/25/23 04/22/23 breath activated powder inhaler of breath or wheezing benzonatate 100 mg capsule 100 mg PO TID 03/25/23 04/22/23 calcium carbonate 500 mg-vitamin 1 tab PO DAILY 03/25/23 03/25/23 D3 5 mcg (200 unit) tablet (Oyster Shell Calcium-Vitamin D3) clonidine HCl 0.1 mg tablet 0.1 mg PO DAILY 03/25/23 04/22/23 docusate sodium 100 mg capsule 100 mg PO DAILY 03/25/23 04/22/23 famotidine 20 mg tablet 20 mg PO Q12H 03/25/23 04/22/23 fluticasone 250 mcg-salmeterol 50 1 inh inhalation Q12H 03/25/23 04/22/23 mcg/dose blistr powdr for inhalation (Josueela Inhub) fluticasone propionate 50 1 spray intranasal BID 03/25/23 03/25/23 mcg/actuation nasal spray,suspension (24 Hour Allergy Relief) folic acid 0.8 mg capsule 800 mcg PO DAILY 03/25/23 04/22/23 hydrocodone 5 mg-acetaminophen 325 1 tab PO Q6H PRN pain 03/25/23 03/25/23 mg tablet loratadine 10 mg tablet 10 mg PO Q24H 03/25/23 04/22/23 mecobalamin (vitamin B12) 5,000 5,000 mcg PO DAILY 03/25/23 03/25/23 mcg chewable tablet meloxicam 15 mg tablet 15 mg PO DAILY 03/25/23 04/22/23 polyethylene glycol 3350 17 17 g PO DAILY 03/25/23 03/25/23 gram/dose oral powder (Miralax) quetiapine 400 mg tablet,extended 400 mg PO DAILY 03/25/23 04/22/23 release 24 hr risperidone microspheres 25 mg/2 25 mg IM Q14D 03/25/23 04/22/23 mL intramuscular susp,ext release (Risperdal Consta) topiramate 25 mg tablet (Topamax) 25 mg PO BEDTIME 03/25/23 04/22/23 Lactobacillus acidophilus 100 mg PO DAILY 04/22/23 04/22/23 (Acidophilus capsule) albuterol sulfate 90 mcg/actuation 2 inh inhalation Q6H PRN shortness 04/22/23 04/22/23 aerosol inhaler of breath or wheezing cyanocobalamin (vitamin B-12) 500 500 mcg PO DAILY 04/22/23 04/22/23 mcg tablet (Vitamin B-12) famotidine 20 mg tablet 20 mg PO BID 04/22/23 04/22/23 fluticasone 250 mcg-salmeterol 50 1 inh inhalation BID 04/22/23 04/22/23 mcg/dose blistr powdr for inhalation (Advair Diskus) polyethylene glycol 3350 17 17 g PO DAILY 04/22/23 04/22/23 gram/dose oral powder (Miralax) quetiapine 100 mg tablet 100 mg PO BID 04/22/23 04/22/23 quetiapine 25 mg tablet 25 mg PO BID 04/22/23 04/22/23 Previous Rx's Medication Instructions Recorded azithromycin 250 mg tablet See Rx Instructions PO .COMPLEX #6 04/22/23 (Zithromax Z-Manoj) tabs Allergies Allergy/AdvReac Type Severity Reaction Status Date / Time aspirin Allergy Severe Verified 03/25/23 19:25 Barbiturates Allergy Severe Verified 03/25/23 19:25 fluoxetine Allergy Severe Verified 03/25/23 19:25 meperidine Allergy Severe Verified 03/25/23 19:25 Penicillins Allergy Severe Anaphylaxis Verified 03/25/23 19:25 codeine Allergy Verified 03/25/23 19:25 Sulfa (Sulfonamide AdvReac Mild Altered Verified 03/25/23 19:25 Antibiotics) Sense of Taste Review of Systems ROS Narrative A ten point review of systems is negative except as noted above. PFSH PFSH Social History Smoking status: Current every day smoker Exam Narrative Exam Narrative: Nurses note and vital signs reviewed and patient is not hypoxic. General: The patient appears well and in no apparent distress. Patient is resting comfortably on cart. Skin: Warm, dry, no pallor noted. There is no rash noted. Head: Normocephalic, atraumatic Eye: Normal conjunctiva, no drainage Ears, Nose, Mouth, and Throat: oral mucosa is moist. Nares patent. large mass present on the left side of her neck. She reports that it is her thyroid gland and she supposed to have surgery in [place] for it. Cardiovascular: Regular Rate and Rhythm Respiratory: Patient is in no distress, no accessory muscle use, lungs are clear to auscultation, no wheezing, rales or rhonchi Back: non-tender GI: soft and nontender Musculoskeletal: The patient has no evidence of calf tenderness, no pitting edema, symmetrical pulses noted bilaterally Neurological: A&O, normal speech Psychiatric: Cooperative Constitutional Vital Signs, click to edit/add: Last Vital Signs Pulse 67 04/22/23 20:58 Resp 18 04/22/23 20:58 BP 141/76 04/22/23 20:58 Pulse Ox 99 04/22/23 20:58 O2 Del Method Room Air 04/22/23 21:30 Course Vital Signs Vital signs: Vital Signs Pulse Rate 67 04/22/23 20:58 Respiratory Rate 18 04/22/23 20:58 Blood Pressure 141/76 04/22/23 20:58 Pulse Oximetry 99 04/22/23 20:58 Oxygen Delivery Method Room Air 04/22/23 20:58 Pulse Rate 67 04/22/23 20:58 Respiratory Rate 18 04/22/23 20:58 Blood Pressure 141/76 04/22/23 20:58 Pulse Oximetry 99 04/22/23 20:58 Oxygen Delivery Method Room Air 04/22/23 21:30 MDM - URI/Sore Throat MDM Narrative Medical decision making narrative: small left lower lobe infiltrate is identified. Influenza and Covid tests are negative. Vital signs are appropriate with room air sat of ninety-nine percent. She's not tachycardic. WBC not elevated. She'll be treated with Zithromax and she does not require admission to the hospital at this point. Treatment diagnosis and follow-up were discussed with the patient. Differential Diagnosis Differential diagnosis: Likely upper respiratory infection and other (Covid, influenza, pneumonia) Lab Data Attestation: I reviewed the patient's lab results. Labs: Lab Results 04/22/23 Range/Units 21:25 WBC 6.2 (4.0-11.0) 10^3/uL RBC 3.83 L (4.20-5.40) 10^6/uL Hgb 12.0 (12.0-16.0) g/dL Hct 37.4 (36.0-48.0) % MCV 97.7 (81.0-99.0) fL MCH 31.3 (26.7-34.0) pg MCHC 32.1 (29.9-35.2) g/dL RDW 12.5 (11.0-15.0) % Plt Count 275 (150-450) 10^3/uL MPV 10.0 (9.5-13.5) fL Neut % (Auto) 47.5 (43.0-75.0) % Lymph % (Auto) 37.9 (20.5-60.0) % [place] % (Auto) 9.3 (1.7-12.0) % Eos % (Auto) 4.5 (0.9-7.0) % Baso % (Auto) 0.5 (0.2-2.0) % Neut # (Auto) 3.0 (1.4-6.5) 10^3/uL Lymph # (Auto) 2.4 (1.2-3.8) 10^3/uL [place] # (Auto) 0.6 (0.3-0.8) 10^3/uL Eos # (Auto) 0.3 (0.0-0.7) 10^3/uL Baso # (Auto) 0.0 (0.0-0.1) 10^3/uL Abs Immat Gran (auto) 0.02 (0.00-0.03) 10^3/uL Imm/Tot Granulo (auto) 0.3 (0.0-0.5) % Sodium 140 (136-145) mmol/L Potassium 4.1 (3.5-5.1) mmol/L Chloride 108 H (98-107) mmol/L Carbon Dioxide 23.6 (21.0-32.0) mmol/L Anion Gap 12.5 BUN 33.0 H (7.0-18.0) mg/dL Creatinine 1.33 H (0.55-1.02) mg/dL Est GFR ( Amer) 48 L (>=60) Est GFR (Non-Af Amer) 40 L (>=60) BUN/Creatinine Ratio 24.8 Glucose 94 (74-106) mg/dL Calcium 9.4 (8.5-10.1) mg/dL SARS-CoV-2 (PCR) Negative (NEGATIVE) Influenza Type A Ag Negative Influenza Type B Ag Negative Imaging Data Chest x-ray: Radiologist's impression: Procedure: XR chest 1V XR chest 1V 04/22/2023 9:17 PM EST CLINICAL INDICATION: Cough COMPARISON: 10/20/2021 TECHNIQUE: Portable semiupright AP view of the chest. FINDINGS: Right humeral hardware is noted. The cardiomediastinal silhouette and pulmonary vasculature are within normal limits. There is elevation of the left hemidiaphragm with retrocardiac opacity. No pneumothorax or pleural effusion. No displaced rib fractures. Osseous structures demonstrate degenerative changes. Soft tissues are grossly normal. IMPRESSION: Elevation of the left hemidiaphragm with retrocardiac opacity which may represent atelectasis or pneumonia. Electronically authenticated by: MIRANDA CANAS Date: 04/22/2023 21:42 Discharge Plan Discharge Chief Complaint: Upper Respiratory Infection Clinical Impression: Left lower lobe pneumonia Patient Disposition: Home, Self-Care Time of Disposition Decision: 22:07 Condition: Good Mode of Transportation: Private Vehicle Prescriptions / Home Meds: New azithromycin [Zithromax Z-Manoj] 250 mg tablet See Rx Instructions .ROUTE .COMPLEX Qty: 6 0RF Rx Instructions: For 250 mg dose pack: take 500 mg today (day 1), then 250 mg for 4 days (days 2-5) No Action benzonatate 100 mg capsule 100 mg PO TID clonidine HCl 0.1 mg tablet 0.1 mg PO DAILY docusate sodium 100 mg capsule 100 mg PO DAILY famotidine 20 mg tablet 20 mg PO Q12H fluticasone propionate [24 Hour Allergy Relief] 50 mcg/actuation spray,suspension 1 spray intranasal BID Rx Instructions: administer into each nostril folic acid 0.8 mg capsule 800 mcg PO DAILY loratadine 10 mg tablet 10 mg PO Q24H meloxicam 15 mg tablet 15 mg PO DAILY calcium carbonate-vitamin D3 [Oyster Shell Calcium-Vit D3] 500 mg-5 mcg (200 unit) tablet 1 tab PO DAILY fluticasone propion-salmeterol [Wixela Inhub] 250-50 mcg/dose blister with device 1 inh INHALATION Q12H polyethylene glycol 3350 [Miralax] 17 gram/dose powder 17 g PO DAILY quetiapine 400 mg tablet extended release 24 hr 400 mg PO DAILY Risperdal Consta 25 mg/2 mL suspension,extended rel recon 25 mg IM Q14D topiramate [Topamax] 25 mg tablet 25 mg PO BEDTIME mecobalamin (vitamin B12) 5,000 mcg tablet,chewable 5,000 mcg PO DAILY albuterol sulfate 90 mcg/actuation aerosol powdr breath activated 2 inh inhalation Q6H PRN (Reason: shortness of breath or wheezing) hydrocodone-acetaminophen 5-325 mg tablet 1 tab PO Q6H PRN (Reason: pain) quetiapine 100 mg tablet 100 mg PO BID quetiapine 25 mg tablet 25 mg PO BID Acidophilus Capsule 100 mg PO DAILY cyanocobalamin (vitamin B-12) [Vitamin B-12] 500 mcg tablet 500 mcg PO DAILY fluticasone propion-salmeterol [Advair Diskus] 250-50 mcg/dose blister with device 1 inh inhalation BID famotidine 20 mg tablet 20 mg PO BID polyethylene glycol 3350 [Miralax] 17 gram/dose powder 17 g PO DAILY albuterol sulfate 90 mcg/actuation HFA aerosol inhaler 2 inh inhalation Q6H PRN (Reason: shortness of breath or wheezing) amantadine HCl 100 mg tablet 100 mg PO BID benztropine 0.5 mg tablet 0.5 mg PO BID quetiapine [Seroquel] 300 mg tablet 700 mg PO DAILY lithium carbonate 150 mg capsule 150 mg PO BID Instructions: Community Acquired Pneumonia (ED), Pneumonia (ED) Stand Alone Forms: Portal Instructions Referrals: Physician,Non-Staff, MD [Primary Care Provider] - 1 week
--- NOTE | 2023-04-22 21:18 | PC.NURSE ---
Patient has had cough, increased shortness of breath for the past two weeks. She has been seen by her doctor and put on tessalon pearles which have not helped. She states that she has not had a CXT. She is on Flonase and three inhalers which also do not help. She asked if she would be admitted, she was told that there would have to be something found wrong with her for her to be admitted.
[2023-04-22 21:33] LABS: Basophils Percent Auto 0.5 % (0.2-2.0); Eosinophils Absolute Auto 0.3 10^3/uL (0.0-0.7); Eosinophils Percent Auto 4.5 % (0.9-7.0); Hematocrit 37.4 % (36.0-48.0); Immature Granulocytes Abs Auto 0.02 10^3/uL (0.00-0.03); Immature Granulocytes Pct Auto 0.3 % (0.0-0.5); Lymphocytes Absolute Auto 2.4 10^3/uL (1.2-3.8); Lymphocytes Percent Auto 37.9 % (20.5-60.0); Mean Corpuscular HGB Conc 32.1 g/dL (29.9-35.2); Mean Corpuscular Hemoglobin 31.3 pg (26.7-34.0); Mean Corpuscular Volume 97.7 fL (81.0-99.0); Monocytes Absolute Auto 0.6 10^3/uL (0.3-0.8); Monocytes Percent Auto 9.3 % (1.7-12.0); Neutrophils Percent Auto 47.5 % (43.0-75.0); Platelet Count 275 10^3/uL (150-450); Red Blood Count 3.83 10^6/uL (4.20-5.40); Red Cell Distribution Width 12.5 % (11.0-15.0); White Blood Count 6.2 10^3/uL (4.0-11.0)
[2023-04-22 21:42] LABS: Anion Gap 12.5; BUN Creatinine Ratio 24.8; Calcium 9.4 mg/dL (8.5-10.1); Carbon Dioxide 23.6 mmol/L (21.0-32.0); Chloride 108 mmol/L (98-107); Estimated GFR (African America 48 (>=60); Estimated GFR (Non-African Ame 40 (>=60); Glucose 94 mg/dL (74-106); Potassium 4.1 mmol/L (3.5-5.1); Sodium 140 mmol/L (136-145)
[2023-04-22 21:45] LABS: Influenza Virus A Antigen Negative; Influenza Virus B Antigen Negative; Internal Control Within Normal Limits; SARS-CoV-2 Ag NEGATIVE (NEGATIVE)
[2023-04-22 22:27] VITALS: PULSE 72; RESP 16; TEMP 36.7; O2SAT 97
[2023-04-22] MEDS: AZITHROMYCIN 250 MG TABLET 500 MG PO (22:27)
[2023-04-23 16:03] LABS: SARS-CoV-2 NAA NOT DETECTED (NOT DETECTE)
== END 2023-04-22 23:08 | disposition home or self-care (01) ==
PROVIDERS: Emergency Provider Emergency Medicine
DX: J18.9 Pneumonia, unspecified organism (principal); Z79.899 Other long term (current) drug therapy; F17.210 Nicotine dependence, cigarettes, uncomplicated; Z20.822 Contact with and (suspected) exposure to COVID-19
CPT/HCPCS: 36415; 71045; 80048; 85025; 87635; 87804; 87811; 93005; 99285

== ENCOUNTER 2023-05-28 09:37 | Outpatient (OUT) | payer MEDICARE, MEDICAID, SELFPAY ==
--- NOTE | 2023-05-28 10:10 | MM_ITS ---
Patient Name: MARTÍNEZ ALMEIDA MR#: [id number] : 1955 Exam Date: 05/28/2023 Ordering Doctor: Non-Staff Physician RADIOLOGY REPORT PROCEDURE: MM TOMOSYNTHESIS SCREENING BI COMPARISON: MAMMO WILDER DIAG W CAD DIG, 09/30/2012. MAMMO SCREEN DIG WILDER, 12/12/2011. INDICATIONS: Screening Calculator Name NCI Breast Cancer Risk Assessment Tool 5 Year Breast Cancer Risk 3.70% Lifetime Breast Cancer Risk 12.80% Personal Breast Cancer No Personal Ovarian Cancer No Treatments None Family Cancers Mother with breast cancer at age ~60. LOCATION: [facility] BREAST COMPOSITION: Heterogeneously dense,which may obscure small masses. FINDINGS: DIAGNOSTIC CATEGORY 2--BENIGN FINDING: RIGHT BREAST: No significant suspicious finding. No significant change has occurred. LEFT BREAST: No significant suspicious finding. Stable, chronic small benign-appearing mass versus lymph node within anterior lower-outer quadrant. RECOMMENDATIONS: ROUTINE MAMMOGRAM AND CLINICAL EVALUATION IN 12 MONTHS. PLEASE NOTE: A NORMAL MAMMOGRAM DOES NOT EXCLUDE THE POSSIBILITY OF BREAST CANCER. A CLINICALLY SUSPICIOUS PALPABLE LUMP SHOULD BE BIOPSIED. Dictated by: Wood Colon M.D. on 05/29/2023 at 12:25 Approved by: Wood Colon M.D. on 05/29/2023 at 13:08
== END 2023-05-28 09:38 | disposition home or self-care (01) ==
LOC: MAMMO 09:37
DX: Z12.31 Encounter for screening mammogram for malignant neoplasm of breast (principal); Z80.3 Family history of malignant neoplasm of breast
CPT/HCPCS: 77063; 77067

== ENCOUNTER 2023-07-29 00:44 | Outpatient (REF) | payer MEDICARE, MEDICAID, SELFPAY ==
--- OUTSIDE RECORDS SUMMARY | 2023-07-29 00:51 | XMS_ITS | CCD ---
Author Name Unknown Address [address] [place] [address] Organization [facility] Care Team Providers Care Wire Brush Maker Name Role Phone Amber, Karla Unavailable Unavailable Sprout Unavailable Unavailable Beavers, Kristine Unavailable Unavailable Amber, Karla Unavailable Unavailable Amber, Karla Unavailable Unavailable JORGE Unavailable Unavailable Amber, Karla Primary Care Physician Unavailab le Sprout Unavailable Unavailable Beavers, Kristine Unavailable Unavailable Amber, Karla Unavailable Unavailable Amber, Karla Primary Care Provider [phone] Amber Karla M Primary Care Provider Karla Clark Primary Care Provider [phone] Amber, Karla M Primary Care Provider AMBER, KARLA M Referring Unavailable AMBER, KARLA M Primary Care Unavailable AMBER, KARLA M Referring Unavailable AMBER, KARLA M Primary Care Unavailable AMBER, KARLA M Referring Unavailable AMBER, KARLA M Primary Care Unavailable Amber FIRST COAT OPERATOR - STUDIO CAMERA OPERATOR, Karla M Primary Care Provider Amber CROOKS Karla Primary Care Provider Amber CROOKS Karla Unavailable Roseline Meraz Primary Care Physician [phone] Amber STEVENS - STUDIO CAMERA OPERATOR, Karla M Primary Care Provider Amber FIRST COAT OPERATOR - DAKSHA, Karla M Primary Care Provider Karla Clark CNP Primary Care Provider Emory Adame Unavailable DO mEory Adame Attending Provider AmberONEIDA dinhN Karla Blackburn Primary Care Provider [phone] NO FAMILY, PHYSICIAN Primary Care Provider Unava ilable MISC, DR LINDQUIST Admitting Unavailable MISC, DR LINDQUIST Consulting Unavailable MISC, DR LINDQUIST Attending Unavailable AMBER, MS KARLA Primary Care Unavailable SPROUT, REKHA Admitting Unavailable SPROUT, REKHA Consulting Unavailable SPROUT, REKHA Attending Unavailable AMBER, MS KARLA Primary Care Unavailable SPROUT, REKHA Admitting Unavailable SPROUT, REKHA Consulting Unavailable SPROUT, REKHA Attending Unavailable AMBER, MS KARLA Primary Care Unavailable AMBER, MS KARLA Primary Care Unavailable DENISHA ., BRADY Admitting Unavailable DENISHA ., BRADY Attending Unavailable VIC, DR HÉCTOR Benitez Consulting Unavailable DENISHA ., BRADY Consulting Unavailable Amber, RODNEY Blackburn Primary Care Provider [phone] DO Emory Adame Attending Provider [phone] MD Monster Davis Attending Provider [phone] KARLA CLARK Primary Care Unavailable HÉCTOR TURNER Referring Unavailable KARLA CLARK Primary Care Unavailable SHE SPENCER Referring Unavailabl e SHE SPENCER Referring Unavailabl e KARLA CLARK Primary Care Unavailable RODNEY Clark Primary Care Provider [phone] Juaquin, DO Crespo Attending Provider [phone] MD Joe Davis Admit Provider MD Joe Davis Attending Provider [phone] NON STAFF Primary Care Provider UnavailTAWANNA Baker Other Provider Unavailable TAWANNA Pizarro Other Provider Unavailable TAWANNA Hudson Other Provider Unavailable TAWANNA Sams Other Provider Unavailable TAWANNA Galvan Other Provider Unavailable TAWANNA Quiñonez Other Provider Unavailable Danielles, FIRST COAT OPERATOR Ana Alexey Other Provider [phone] DO Barbie Choi Other Provider Aniyah, MD Braden Other Provider DO Chandu Villafana Other Provider [phone] MD Thomas Mendez Other Provider MD Kathrine Naik Other Provider Chilango, ANP-BC Mariana Other Provider MD Angel Haley Other Provider MD Link Salazar Other Provider MD Rosa Lowe Other Provider MD Brad Peng Other Provider DO Khalif Pettit Other Provider [phone] MD Sherif Campbell Other Provider MD Francisco Keene Other Provider Lauren, SOLIDS CONTROL TECHNICIAN-C Roseline Ponce Other Provider [phone] MD Jaswinder Robert Other Provider MD Sammy Titus Other Provider MD Kody Leon Other Provider MD Gibson Cid Other Provider DO Yolanda Davila Other Provider DO Jeancarlos Bonilla Other Provider DO Scottie Quinn Other Provider RODNEY Hallman Other Provider DO Jose Huang Other Provider MD Naga Lundberg Other Provider [phone] RODNEY Spencer Other Provider RODNEY Jenkins Other Provider [phone] MD Greg Ocampo Other Provider MD Loy Rivers Other Provider DO Ludwig Amador Other Provider RODNEY Jewell Other Provider [phone] TAWANNA Grimaldo Other Provider Unavailable RODNEY Pryor Other Provider MD Chris Adam Other Provider DO London Mccann Other Provider YANDEL DANIEL Referring Unavailable SCHACHASE, YANDEL Referring Unavailable SCHARPFYANDEL Referring Unavailable Amber, Karla M Primary Care Unavailable PayZak Attending Unavailable Pay, Zak Admitting Unavailable WendiEmory A Attending Unavailable Amber, Karla M Primary Care Unavailable Wendi, Emory A Admitting Unavailable Amber, Karla M Primary Care Unavailable Joe Davis Attending Unavailab le Derrek Davisrahman Admitting Unavailab le Amber, Karla M Primary Care Unavailable Randy Adamein A Attending Unavailable Wendi Emory A Admitting Unavailable Amber, Karla M Primary Care Unavailable Wendi Emory A Admitting Unavailable Randy Adamein A Attending Unavailable NON STAFF Primary Care Unavailable Joe Davis Attending Unavailab Cecilia Carpenter Consulting Unavailable Joyce Daviselrahman Admitting Unavailab Florencia Gordillo Consulting Unavailable Stacey Hudson Consulting Unavailable Ann-Marie Sams Consulting Unavailable Lisseth Galvan Consulting Unavailable Ragini Quiñonez Consulting Unavailable Chris Adam Consulting Unavailable Ana Milan Consulting Unavailable Barbie Choi Consulting Unavailable Braden Dill Consulting Unavailable Chandu Villafana Consulting UnavailThomas Buck Consulting Unavailable Kathrine Naik Consulting Unavailable Mariana Pryor Consulting UnavailAngel Cordoba Consulting Unavailable Link Salazar Consulting Unavailable Rosa Lowe Consulting Unavailable Brad Peng Consulting Unavailable Khalif Pettit Consulting Unavailable Sherif Campbell Consulting Unavailable Francisco Keene Consulting Unavailable Roseline Aguilar Consulting Unavailable Jaswinder Robert Consulting Unavailab Titus Muir Consulting Unavailable Kody Leon Consulting Unavailable Jose Roberto, Gibson Consulting Unavailable Yolanda Davila Consulting Unavailable Huyen Bonillaal Eli Consulting Unavailable Scottie Quinn Consulting Unavailable Obclarisse, Maddy Consulting Unavailable Jose Huang Consulting Unavailable MinaomarNaga Consulting Unavailable Leny Spencer Consulting Unavailable Winnie Jenkins Consulting Unavailable Greg Ocampoa Consulting Unavailable Loy Rivers Consulting Unavailable Ludwig Amador Consulting Unavailable Pinky Jewell Consulting Unavailable London Mccann Consulting Unavailable Alice Grimaldo Consulting Unavailable Susan, Joe Admitting Unavailab le Susan Joe Attending Unavailab le ELIAZAR STAFF Primary Care Unavailable Cecilia Soares Consulting Unavailable Florencia Pizarro Consulting Unavailable Stacey Hudson Consulting Unavailable Ann-Marie Sams Consulting Unavailable Lisseth Galvan Consulting Unavailable Ragini Quiñonez Consulting Unavailable Ana Milan Consulting Unavailable Barbie Choi Consulting Unavailable Braden Dill Consulting Unavailable Chandu Villafana Consulting UnavailThomas Buck Consulting Unavailable Kathrine Naik Consulting Unavailable Mariana Pryor Consulting UnavailAngel Cordoba Consulting Unavailable Link Salazar Consulting Unavailable Rosa Lowe Consulting Unavailable Brad Peng Consulting Unavailable Khalif Pettit Consulting Unavailable Sherif Campbell Consulting Unavailable Francisco Keene Consulting Unavailable Roseline Aguilar Consulting Unavailable DoJaswinder gotti Consulting Unavailab le Sammy, Titus Consulting Unavailable Kody Leon Consulting Unavailable Jose Roberto, Gibson Consulting Unavailable Yolanda Davila Consulting Unavailable Jeancarlos Bonilla Consulting Unavailable Scottie Quinn Consulting Unavailable Lenny Hallmana Consulting Unavailable Jose Huang Consulting Unavailable Naga Lundberg Consulting Unavailable Leny Spencer Consulting Unavailable Winnie Jenkins Consulting Unavailable Damaris Alaa Consulting Unavailable Loy Rivers Consulting Unavailable Ludwig Amador Consulting Unavailable Pinky Jewell Consulting Unavailable Alice Grimaldo Consulting Unavailable NO FAMILY, PHYSICIAN Primary Care Unavailable Emory Adame Admitting Unavailable Emory Adame Attending Unavailable Karla Clark M Primary Care Unavailable Emory Adame Admitting Unavailable Emory Adame Attending Unavailable Karla Clark M Primary Care Unavailable Emory Adame Admitting Unavailable Emory Adame Attending Unavailable SCHACHASE, YANDEL Attending Unavailable SCHARPF, YANDEL Attending Unavailable SCHARPF, YANDEL Attending Unavailable SCHARPF, YANDEL Admitting Unavailable SCHARPF, YANDEL Attending Unavailable Unavailable Primary Care Provider UnavailDAKOTA Santillan Attending Unavailable KARLA CLARK Referring Unavailable Allergies Allergy Classification Reported Allergen(s) Allergy Type Date of Onset Reaction(s) Facility Aluminum aspirin (1 source) Aluminum aspirin Drug Allergy [facility] Barbiturates (1 source) Barbiturates Drug Allergy Other (See Comments) [facility] Corticosteroids (1 source) predniSONE Drug Allergy [facility] NSAIDs (1 source) Ibuprofen Drug Allergy 018 [facility] Opioid Agonists (2 sources) Codeine Drug Allergy [facility] Penicillins (antibiotic) (1 source) Penicillins Drug Allergy [facility] Serotonin Reuptake Inhibitors (SSRIs) (2 sources) FLUoxetine Drug Allergy [facility] Sulfamethoxazole / Trimethoprim (1 source) Sulfamethoxazole / Trimethoprim Drug Allergy [facility] Sulfonamides (antibiotic) (1 source) Sulfonamides (Antibiotic) Drug Allergy [facility] (20 sources) aspirin; Translations: [aspirin] Drug Allergy 023 [facility] Comment on above: 04/10/2016 - angelo (20 sources) codeine; Translations: [Codeine] Drug Allergy [facility] (20 sources) Penicillins; Translations: [PENICILLINS] Allergy to substance (disorder) [facility] (20 sources) sulfamethoxazole / trimethoprim; Translations: [Bactrim DS] Drug Allergy [facility] (20 sources) Sulfonamides (Antibiotic); Translations: [Sulfa sensitivity] Allergy to substance (disorder) [facility] (20 sources) -Other; Translations: [-Other] Allergy to substance (disorder) Barbiturates, and amphetamines [facility] (6 sources) -No Known Food Allergies Allergy to substance (disorder) [facility] (20 sources) -No Environmental Allergies; Translations: [-No Environmental Allergies] Allergy to substance (disorder) [facility] (2 sources) Aspirin; Translations: [aspirin] Drug Allergy Tremor (finding) [facility] Comment on above: 04/10/2016 - ke (20 sources) Aluminum aspirin Drug Allergy [place] (20 sources) Barbiturates; Translations: [BARBITURATES] Propensity to adverse reactions to drug 014 Other (See Comments) [place] (20 sources) FLUoxetine; Translations: [fluoxetine] Drug Allergy 014 Feels weird [place] (20 sources) FLUoxetine Drug Allergy 014 [place] (20 sources) Ibuprofen; Translations: [IBUPROFEN] Drug Allergy 018 Unknown Reaction, Unknown [place] (20 sources) Meperidine; Translations: [meperidine] Drug Allergy 018 Sedated, Unknown Reaction, Unknown [place] (20 sources) predniSONE Drug Allergy 015 [place] (20 sources) Sulfamethoxazole / Trimethoprim; Translations: [sulfamethoxazole-t rimethoprim] Drug Allergy [place] (20 sources) Sulfonamides (Antibiotic) Propensity to adverse reactions to drug [place] (20 sources) Amphetamines Propensity to adverse reactions to drug [place] (20 sources) Metals Allergy to substance [facility] (16 sources) Aluminum-Containing Compounds Propensity to adverse reactions to drug [place] (1 source) Penicillin; Translations: [penicillin] Drug Allergy Cyanosis (finding) [facility] (1 source) Sulfonamides (Antibiotic); Translations: [sulfa drugs] Drug allergy [facility] (3 sources) Sulfonamides (Antibiotic) Propensity to adverse reactions to drug 013 [employer] [employer]: (7 sources) Amphetamine aspartate / Amphetamine Sulfate / Dextroamphetamine saccharate / Dextroamphetamine Sulfate Drug Allergy pain [employer] [facility] [employer] Other (7 sources) Penicillin G Drug Allergy anaphylaxis [employer] [facility] [employer] Other (7 sources) Sulf-10 Drug allergy odor producing [facility] [employer] Other (10 sources) Sulfonamides (Antibiotic); Translations: [SULFA (SULFONAMIDE ANTIBIOTICS)] Allergy to substance 023 nausea; strange odor [facility] (5 sources) Barbiturate Drug allergy Unknown [facility] [employer] Other (2 sources) Amphetamine Drug Allergy 014 [facility] (2 sources) Aspirin Drug Allergy 013 [facility] (2 sources) Barbiturates Drug allergy (disorder) 014 [facility] (2 sources) FLUoxetine Drug Allergy 013 [facility] (1 source) FLUoxetine Drug Allergy 023 [facility] (1 source) Ibuprofen Drug Allergy 023 [facility] (1 source) Meperidine Drug Allergy 023 [facility] (1 source) predniSONE Drug Allergy 015 [facility] (2 sources) Sulfamethoxazole / Trimethoprim Drug Allergy 013 [facility] (1 source) Sulfonamides (Antibiotic) Drug allergy (disorder) 013 [facility] (3 sources) Sulfamethoxazole; Translations: [sulfamethoxazole] Drug Allergy Unknown Reaction [facility] (5 sources) Trimethoprim; Translations: [trimethoprim] Drug Allergy 023 Unknown Reaction [facility] (1 source) Amphetamine Drug Allergy 07-05-04 [facility] (1 source) Aspirin Drug Allergy [facility] (1 source) Barbiturates Drug allergy (disorder) [facility] (1 source) FLUoxetine Drug Allergy [facility] (1 source) Ibuprofen Drug Allergy [facility] (1 source) Meperidine Drug Allergy [facility] (1 source) Penicillin Drug Allergy [facility] (2 sources) Barbiturate Drug Allergy [facility] (2 sources) Prednisone Propensity to adverse reactions [facility] Medications Current Medications Medication Drug Class(es) Dates Sig (Normalized) Sig (Original) acetaminophen 325 mg / oxyCODONE hydrochloride 5 mg oral tablet (5 sources) Opioid Agonist take 1 tablet by mouth every six hours oxyCODONE-Acetamin ophen 5-325 MG 1 tablet as needed Orally every 6 hrs for 7 days Active Acidophilus Probiotic 0.5 MG Oral Tablet (20 sources) Start: 11-19-2022 Acidophilus Probiotic 0.5 MG Oral Tablet 11/19/2022 Provider: Karla Clark CNP Start: 12-20-2021 End: 11-19-2022 Acidophilus Probiotic 0.5 MG Oral Tablet 12/20/2021 - 11/19/2022 Provider: Karla Clark CNP Start: 12-20-2021 Acidophilus Pr obiotic 0.5 MG Oral Tablet 12/20/2021 Provider: Karla Clark CNP Start: 11-17-2020 End: 12-20-2021 Acidophilus Probiotic 0.5 MG Oral Tablet 11/17/2020 - 12/20/2021 Provider: Karla Clark CNP Start: 11-17-2020 Acidophilus Pr obiotic 0.5 MG Oral Tablet 11/17/2020 Provider: Karla Clark CNP [id number] 200 actuat albuterol 0.09 mg/actuat metered dose inhaler (20 sources) beta2-Adrenergic Agonist Start: 03-26-2023 take 1 puff(s) by inhalation every six hours Albuterol Sulfate Active 2 PUFF INHALATION Q6H March 26, 2023 12:00am Start: 09-11-2022 End: 03-12-2023 take 1 puff(s) by inhalation every six hours Albuterol Sulfate Discontinued 1 - 2 PUFF INHALATION Q6H September 11, 2022 12:00am March 12, 2023 5:54am Start: 12-06-2019 End: 11-19-2022 Albuterol Sulfate HFA 108 (9 0 Base) MCG/ACT Inhalation Aerosol Solution 01/04/2021 - 12/20/2021 Provider: Karla Clark CNP Start: 07-31-2018 End: 12-06-2019 Ventolin HFA 108 (90 Base)MC G/ACT Inhalation Aerosol Solution 11/06/2018 Provider: Karla Clark CNP Start: 07-31-2018 End: 12-06-2019 Ventolin HFA 108 (90 Base)MC G/ACT Inhalation Aerosol Solution 11/06/2018 - 12/06/2019 Provider: Karla Clark CNP Start: 06-28-2018 End: 05-02-2020 ALBUTEROL SULFATE MISC 06/28 - 05/02/2020 Provider: Start: 06-28-2018 End: 06-28-2018 ALBUTEROL SULFATE MISC 06/28 - 06/28/2018 Provider: Start: 05-22-2017 take 1-2 puff(s) by inhalation every six hours as needed Ventolin HFA 90 mcg/actuation inhalation HFA aerosol inhaler 05/22/2017 inhale 1 - 2 puffs (90 - 180 mcg) by inhalation route every 6 hours as needed Start: 05-22-2017 End: 05-22-2017 VENTOLIN HFA 90MCG/ACTUAT [place] SC 05/22/2017 - 05/22/2017 Provider: Start: 05-29-2016 take 2 puff(s) by in halation every four hours as needed for wheezing albuterol sulfate HFA (PROVENTIL HFA) 108 (90 BASE) MCG/ACT inhaler Inhale 2 puffs into the lungs every 4 hours as needed for Wheezing or Shortness of Breath 1 Inhaler 1 05/29/2016 Active Start: 05-29-2016 take 2 puff(s) by in halation every four hours as needed for wheezing albuterol sulfate HFA (PROVENTIL HFA) 108 (90 BASE) MCG/ACT inhaler Inhale 2 puffs into the lungs every 4 hours as needed for Wheezing or Shortness of Breath 1 Inhaler 1 05/29/2016 Active Start: 01-05-2016 End: 01-05-2016 VENTOLIN HFA 90MCG/ACTUAT NH SC 01/05/2016 - 01/05/2016 Provider: Start: 01-05-2016 take 1-2 puff(s) by inhalation every six hours as needed Ventolin HFA 90 mcg/actuation inhalation HFA aerosol inhaler 01/05/2016 inhale 1 - 2 puffs (90 - 180 mcg) by inhalation route every 6 hours as needed Start: 01-05-2016 take 1-2 puff(s) by inhalation every six hours as needed Ventolin HFA 90 mcg/actuation inhalation HFA aerosol inhaler 05/22/2017 inhale 1 - 2 puffs (90 - 180 mcg) by inhalation route every 6 hours as needed albuterol HFA 90 mcg/act inhaler Inhale 1 puff 0 Active Albuterol Sulfat e HFA Active albuterol sulfat e HFA (PROVENTIL;VENTOLIN;PROAIR) 108 (90 Base) MCG/ACT inhaler 1 puff as needed 0 Active amantadine hydrochloride 100 mg oral tablet (20 sources) Influenza A M2 Protein Inhibitor Start: 09-11-2022 amantadine (Symmetrel) 100 MG tablet Twice daily 0 09/11/2022 Active Start: 06-28-2018 End: 05-02-2020 AMANTADINE HCL 100 MG MISC 06/28/2018 - 05/02/2020 Provider: Start: 06-28-2018 End: 06-28-2018 AMANTADINE HCL 100 MG MISC 06/28/2018 - 06/28/2018 Provider: Start: 06-28-2018 End: 06-28-2018 AMANTADINE HCL 100MG MISC 06/28/2018 - 06/28/2018 Provider: Start: 08-24-2012 End: 05-06-2020 Amantadine HCl 100MG Oral Ca psule 07/31/2018 - 05/06/2020 Provider: take 1 tablet by emiliano th twice daily Amantadine HCl 100 MG TABS Take 100 mg by mouth 2 times daily. 0 Active End: 09-17-2017 take 1 capsule by mouth once daily as needed amantadine HCl 100 mg oral capsule 09/17/2017 take 1 capsule (100 mg) by oral route once daily prn Dosage Change amylase [id number] unt / lipase 9000 unt / protease [id number] unt oral capsule (7 sources) Digestive Enzyme s (Bevitrol) capsule Take 1 capsule by mouth 0 Active take 1 capsule by mouth two time s weekly Digestive Enzymes (ACIDOLL) CAPS Take by mouth Twice a Week 0 Active B12 Folate 800-800 MCG Oral Capsule (3 sources) Start: 03-16-2020 B12 Folate 800 -800 MCG Oral Capsule 03/16/2020 Provider: Karla Clark CNP benzonatate 100 mg oral capsule (20 sources) Non-narcotic Antitussive Start: 02-28-2023 Benzonatate 200 MG Oral Capsule 02/28/2023 Provider: Aaron Whitaker CNP Start: 09-13-2022 End: 03-28-2023 take 1 capsule by mouth in the morning benzonatate (Tessalon) 100 MG capsule Take 100 mg by mouth in the morning. 0 02/28/2023 Active Start: 11-03-2021 End: 02-14-2022 Tessalon Perles 100 MG Oral Capsule 12/20/2021 - 02/14/2022 Provider: Karla Clark CNP Start: 11-19-2019 End: 05-06-2020 Tessalon Perles 100 MG Oral Capsule 11/19/2019 - 05/06/2020 Provider: Karla Clark CNP Start: 03-05-2019 End: 04-15-2019 Tessalon Perles 100 MG Oral Capsule 03/05/2019 - 04/15/2019 Provider: Karla Clark CNP benztropine mesylate 0.5 mg oral tablet (20 sources) Anticholinergic, Antihistamine Start: 09-11-2022 take 1 tablet by mouth in the morning benztropine (Cogentin) 0.5 MG tablet Take 0.5 mg by mouth in the morning and 0.5 mg in the evening. 0 09/11/2022 Active Start: 07-31-2018 End: 05-06-2020 take 0.5 mg by mouth twice daily Benztropine Active 0.5 MG PO Twice daily September 11, 2022 12:00am Start: 06-28-2018 End: 05-02-2020 BENZTROPINE 0.5 MG [facility] 06/04 - 05/02/2020 Provider: Start: 06-28-2018 End: 06-28-2018 BENZTROPINE 0.5 MG MISC 06/04 - 06/28/2018 Provider: Start: 06-28-2018 End: 06-28-2018 BENZTROPINE 0.5MG MISC 06/28 - 06/28/2018 Provider: take 1 tablet by emiliano every twenty-four hours Benztropine Mesylate 0.5 MG 1 tablet at bedtime Orally Once a day Active brompheniramine maleate 0.4 mg/ml / dextromethorphan hydrobromide 2 mg/ml / pseudoephedrine hydrochloride 6 mg/ml oral solution (20 sources) alpha-Adrenergic Agonist, Uncompetitive Y-tiibuq-R-aspartate Receptor Antagonist, Sigma-1 Agonist Start: 09-04-2018 Bromfed DM 30-2-10MG/5ML Oral Syrup 09/04/2018 Provider: Karla Clark CNP Start: 05-22-2016 take 10 mL by mouth every four to six hours as needed for cough Bromfed DM 2-30-10 mg/5 mL oral syrup 07/30/2017 take 10 milliliters by oral route every 4-6 hours as needed for cough/congestion Start: 12-09-2015 End: 01-11-2016 take 10 mL by mouth every four to six hours as needed for cough Bromfed DM 2-30-10 mg/5 mL oral syrup 12/09/2015 01/11/2016 take 10 milliliters by oral route every 4-6 hours as needed for cough BROMPHENIRAMINE-PSEUDOEPH PO (20 sources) take 10 mL by mouth every six hours as needed BROMPHENIRAMINE-PSEUDOEPH PO Take by mouth Take 10 ml every 6 hours PRN. 0 Active Calcium 600+D 600-400 MG-UNI T Oral Tablet (20 sources) Start: 022 Calcium 600+D 600-400 MG-UNI T Oral Tablet 12/20/2021 Provider: Karla Clark CNP Start: 02-24-2021 End: 12-20-2021 Calcium 600+D 600-400 MG-UNI T Oral Tablet 02/24/2021 - 12/20/2021 Provider: Karla Clark CNP Start: 02-24-2021 Calcium 600+D 600-400 MG-UNIT Oral Tablet 02/24/2021 Provider: Karla Clark CNP Calcium 600+D3 600-400 MG-UNIT Oral Tablet (3 sources) Start: 03-16-2020 Calcium 600+D3 600-400 MG-UNIT Oral Tablet 03/16/2020 Provider: Karla Clark CNP calcium carbonate 500 mg oral tablet (13 sources) Start: 06-22-2023 End: 07-22-2023 take 1 tablet by mouth in the morning calcium carbonate (Os-Rl) 1250 (500 Ca) MG tablet Take 1,250 mg by mouth in the morning. 0 06/22/2023 07/22/2023 Active Start: 06-28-2018 End: 06-28-2018 CALCIUM CARBONATE 500 mg calcium(1,250 MG) [facility] 06/28/2018 - 06/28/2018 Provider: End: 01-11-2016 take 1 tablet by mouth twice daily calcium carbonate 500 mg calcium (1,250 mg) oral tablet,chewable 01/11/2016 chew 1 tablet by oral route 2 times a day calcium carbonate 1250 mg / cholecalciferol 200 unt oral tablet (20 sources) Vitamin D Start: 02-24-2023 Calcium Carb-C holecalciferol (Oyster Shell Calcium w/D) 500-5 MG-MCG tablet Start: 11-09-2016 take 1 tablet by emiliano twice daily Calcium 600 + D(3) 600 mg(1,500mg) -400 unit oral tablet 11/20/2017 take 1 tablet by oral route twice daily calcium citrate 1500 mg / cholecalciferol 200 unt oral tablet (2 sources) Vitamin D calcium citrate-vitamin D (CITRACAL+D) 315-200 MG-UNIT per tablet Carpal Tunnel Wrist Stabilizer Miscellaneous (12 sources) Start: 020 Carpal Tunnel Wrist Stabilizer Miscellaneous 07/23/2019 Provider: Karla Clark CNP clindamycin 20 mg/ml vaginal cream (2 sources) Lincosamide Antibacterial Start: 023 clindamycin (Cleocin) 2 % vaginal cream Place vaginally nightly. For 5 nights 0 02/06/2023 Active clobetasol propionate 0.0005 mg/mg topical ointment (20 sources) Corticosteroid Start: 018 clobetasol (TEMOVATE) 0.05 % ointment Indications: Acute vaginitis Apply topically 2 times daily. 1 Tube 1 02/04/2018 Active cloNIDine hydrochloride 0.1 mg oral tablet (20 sources) Central alpha-2 Adrenergic Agonist Start: take 0.1 mg by mouth once daily Clonidine Hcl Active 0.1 MG PO Daily September 11, 2022 12:00am Start: 02-03-2016 End: 07-28-2021 cloNIDine HCl 0.1 MG OR TABS 02/25/2017 - 05/02/2020 Provider: cloNIDine 0.1 MG /24HR 1 patch to skin Transdermal Active Digestive Enzymes (ACIDOLL) CAPS (5 sources) take 1 capsule by mouth two times weekly Digestive Enzymes (ACIDOLL) CAPS Take by mouth Twice a Week 0 Active Digestive Enzymes (ACIDOLL) CAPS (13 sources) take 1 capsule by mouth two times weekly Digestive Enzymes (ACIDOLL) CAPS Take by mouth Twice a Week 0 Active docusate sodium 100 mg oral capsule (20 sources) Start: 03-12-2023 take 1 capsule by mouth in the morning Docusate Sodium (DSS) 100 MG capsule Take 100 mg by mouth in the morning. 0 03/12/2023 Active Start: 08-02-2021 End: 11-19-2022 Colace 100 MG Oral Capsule 0 12/20/2021 - 11/19/2022 Provider: Karla Clark CNP famotidine 20 mg oral tablet (20 sources) Histamine-2 Receptor Antagonist Start: 09-22-2019 End: 11-19-2022 take 1 tablet by mouth in the morning famotidine (Pepcid) 20 MG tablet Take 20 mg by mouth in the morning and 20 mg in the evening. 0 09/11/2022 Active Start: 09-22-2019 End: 11-19-2022 Famotidine 20 MG Oral Tablet 09/14/2020 - 12/20/2021 Provider: Karla Clark CNP Famotidine (PEPC ID PO) Take by mouth OTC Pepcid daily. 0 Active fluticasone propionate 0.05 mg/actuat metered dose nasal spray (20 sources) Corticosteroid Start: 03-26-2023 fluticasone (F lonase) 50 MCG/ACT nasal spray Twice daily 0 03/26/2023 Active Start: 03-26-2023 take 1 spray(s) nasa l route twice daily Fluticasone Propionate Active 1 SPRAY INTRANASAL Twice daily March 26, 2023 12:00am inhale 1 spray into each nostril twice a day Start: 09-11-2022 End: 03-12-2023 take 1 spray(s) nasal route twice daily Fluticasone Propionate Discontinued 1 SPRAY INTRANASAL Twice daily September 11, 2022 12:00am March 12, 2023 5:55am administer into each nostril Start: 11-09-2020 End: 11-19-2022 Fluticasone Propionate 50 MC G/ACT Nasal Suspension 12/20/2021 - 11/19/2022 Provider: Karla Clark CNP Start: 10-31-2019 End: 11-09-2020 Flonase Allergy Relief 50 MC G/ACT Nasal Suspension 10/31/2019 - 11/09/2020 Provider: Karla Clark CNP Start: 06-05-2019 Fluticasone Fu roate 50 MCG/ACT Inhalation Aerosol Powder Breath Activated 06/05/2019 Provider: Start: 03-05-2019 Flonase Allerg y Relief 50 MCG/ACT Nasal Suspension 03/05/2019 Provider: Karla Clark CNP Start: 11-06-2018 End: 03-05-2019 Flonase Allergy Relief 50MCG /ACT Nasal Suspension 11/06/2018 - 03/05/2019 Provider: Start: 07-31-2018 End: 09-11-2018 Flonase Allergy Relief 50MCG /ACT Nasal Suspension 07/31/2018 - 09/11/2018 Provider: Start: 10-14-2017 take 1 spray(s) nasa l route twice daily Flonase Allergy Relief 50 mcg/actuation nasal spray,suspension 10/14/2017 inhale 1 spray (50 mcg) in each nostril by intranasal route twice daily fluticasone (Peter amyst) 27.5 MCG/SPRAY nasal spray 2 sprays in the morning. 0 Active take 1 spray(s) nasa l route once daily Fluticasone Propionate 50 MCG/ACT 1 spray in each nostril Nasally Once a day Active 60 actuat fluticasone propionate 0.25 mg/actuat / salmeterol 0.05 mg/actuat dry powder inhaler (14 sources) Corticosteroid, beta2-Adrenergic Agonist Start: 03-28-2023 take 1 puff(s) by inhalation in the morning Wixela Inhub 250-50 MCG/ACT aerosol powder Inhale 1 puff in the morning and 1 puff in the evening. 0 03/28/2023 Active Start: 03-28-2023 Fluticasone Pr opion-Salmeterol (Wixela Inhub) 250-50 mcg/dose blister with device Active 1 INH INHALATION Twice daily 60 March 28, 2023 9:22am Start: 03-28-2023 End: 03-28-2023 Fluticasone Propion-Salmeter ol (Wixela Inhub) 250-50 mcg/dose blister with device Discontinued INH INHALATION Twice daily March 28, 2023 12:00am March 28, 2023 12:01pm Start: 03-12-2023 End: 03-28-2023 Fluticasone Propion-Salmeter ol (Advair Diskus) 250-50 mcg/dose blister with device Discontinued 1 INH INHALATION Twice daily March 12, 2023 12:00am March 28, 2023 9:17am Start: 03-12-2023 Fluticasone Pr opion-Salmeterol (Wixela Inhub) 250-50 mcg/dose blister with device Active 1 INH INHALATION Twice daily March 12, 2023 12:00am Start: 09-21-2022 Advair Diskus 250-50 MCG/ACT Inhalation Aerosol Powder Breath Activated 09/21/2022 Provider: Karla Clark CNP take 1 puff(s) by in halation twice daily Advair Diskus 250-50 MCG/ACT 1 puff Inhalation Twice a day Active folic acid 0.8 mg oral tablet (20 sources) Start: 03-26-2023 take 1 tablet by mouth in the morning folic acid (Folvite) 800 MCG tablet Take 800 mcg by mouth in the morning. 0 03/26/2023 Active Start: 09-11-2022 End: 03-12-2023 take 800 ug by mouth once daily Folic Acid Discontinued 800 MCG PO Daily September 11, 2022 12:00am March 12, 2023 5:55am Start: 08-11-2020 End: 08-27-2022 Folic Acid 800 MCG Oral Tabl et 07/28/2021 - 08/27/2022 Provider: Karla Clark CNP Start: 06-17-2020 End: 07-28-2021 Folic Acid 0.8 MG Oral Capsu le 06/17/2020 - 07/28/2021 Provider: folic acid (FOLV ITE) 800 MCG tablet 1 tablet 0 Active hypromellose (9 sources) take 1 drop(s) into the eye(s) four times daily Hypromellose (ARTIFICIAL TEARS OP) Apply 1 drop to eye 4 times daily Each eye. 0 Active Lactobacillus (20 sources) Lactobacillus (ACIDOPHILUS PROBIOTIC PO) Take by mouth 2 times daily 0 Active Lactobacillus acidophilus (20 sources) Start: 03-26-2023 take 1 capsule by mouth once daily Lactobacillus Acidophilus (Acidophilus) Capsule Active 1 CAP PO Daily March 26, 2023 12:00am Start: 10-15-2019 End: 11-17-2020 Acidophilus Oral Capsule - 11/17/2020 Provider: Karla Clark CNP Start: 10-15-2019 Acidophilus Or al Capsule 10/15/2019 Provider: Karla Clark CNP Start: 11-26-2018 End: 10-15-2019 Acidophilus Oral Capsule - 10/15/2019 Provider: Karla Clark CNP Start: 11-26-2018 End: 11-21-2019 Acidophilus Oral Capsule - 11/21/2019 Provider: Karla Clark CNP Start: 07-31-2018 End: 12-22-2018 Acidophilus Oral Capsule - 12/22/2018 Provider: Start: 07-31-2018 Acidophilus Or al Capsule 07/31/2018 Provider: levothyroxine sodium 0.112 mg oral tablet (2 sources) l-Thyroxine Start: 06-22-2023 End: 09-20-2023 take 1 tablet by mouth before mealtime levothyroxine (Synthroid, Levoxyl) 112 MCG tablet Take 112 mcg by mouth in the morning. Take before meals. 0 06/22/2023 09/20/2023 Active lithium carbonate 150 mg oral capsule (20 sources) Start: 09-11-2022 take 150 mg by mouth twice daily Moneta Carbonate Active 150 MG PO Twice daily September 11, 2022 12:00am Start: 09-11-2022 take 150 mg by mouth once daily in the morning Moneta Carbonate Active 150 MG PO Every morning September 11, 2022 12:00am Start: 09-11-2022 End: 03-12-2023 take 300 mg by mouth once daily at bedtime Moneta Carbonate Discontinued 300 MG PO Daily at bedtime September 11, 2022 12:00am March 12, 2023 5:59am Start: 06-28-2018 End: 02-21-2023 Moneta Carbonate 300MG Oral Tablet 07/31/2018 - 02/21/2023 Provider: Start: 06-28-2018 End: 05-02-2020 LITHIUM CARBONATE 300 MG MIS C 06/28/2018 - 05/02/2020 Provider: Start: 06-28-2018 End: 05-02-2020 LITHIUM CARBONATE 450 MG MIS C 06/28/2018 - 05/02/2020 Provider: Start: 06-28-2018 End: 05-02-2020 LITHOBID 300 MG MISC 019 - 05/02/2020 Provider: Start: 06-28-2018 End: 06-28-2018 LITHOBID 300 MG MISC 019 - 06/28/2018 Provider: Start: 06-28-2018 End: 06-28-2018 LITHIUM CARBONATE 450 MG MIS C 06/28/2018 - 06/28/2018 Provider: Start: 06-28-2018 End: 06-28-2018 LITHIUM CARBONATE 300 MG MIS C 06/28/2018 - 06/28/2018 Provider: Start: 06-28-2018 End: 06-28-2018 LITHIUM CARBONATE 300MG MISC 06/28/2018 - 06/28/2018 Provider: Start: 06-28-2018 End: 06-28-2018 LITHIUM CARBONATE 450MG MISC 06/28/2018 - 06/28/2018 Provider: Start: 06-28-2018 End: 06-28-2018 LITHOBID 300MG MISC 06/28/19 19 - 06/28/2018 Provider: take 1 tablet by emiliano th in the morning, then take 1.5 tablets by mouth twice daily in the evening Moneta Carbonate ER 300 MG 1 tablet am and 1.5 tablet pm Orally Twice a day Active take 1 tablet by emiliano th in the morning, then take 1 tablet by mouth in the evening lithium carbonate 300 mg oral tablet take 1 tab in the morning, take 1 1/2 tab in the evening lithium carbonat e 450 mg oral tablet extended release take 1 tablet (450 mg) by oral route at bed time loratadine 10 mg oral tablet (20 sources) Start: 06-28-2018 End: 11-19-2022 take 1 tablet by mouth in the morning loratadine (Claritin) 10 MG tablet Take 10 mg by mouth in the morning. 0 09/11/2022 Active Loratadine (CLAR ITIN PO) Take by mouth daily 0 Active LORazepam 1 mg oral tablet (1 source) Benzodiazepine Start: 01-02-2011 take 2 tablets by mouth once daily Ativan 1 mg Tab 2 mg = 2 tab(s), Oral, Daily, tab(s), Refills(s) 0 Start Date: 01/02/11 Status: Ordered meloxicam 15 mg oral tablet (20 sources) Nonsteroidal Anti-inflammatory Drug Start: 06-18-2022 End: 11-19-2022 take 1 tablet by mouth in the morning meloxicam (Mobic) 15 MG tablet Take 15 mg by mouth in the morning. 0 08/11/2022 Active nitrofurantoin, macrocrystals 25 mg / nitrofurantoin, monohydrate 75 mg oral capsule (20 sources) Nitrofuran Antibacterial Start: 03-28-2023 nitrofurantoin, macrocrystal-mon ohydrate, (Macrobid) 100 MG capsule Start: 08-31-2019 End: 09-22-2019 Macrobid 100 MG Oral Capsule 08/31/2019 - 09/22/2019 Provider: Karla Clark CNP nystatin [id number] unt/ml topical cream (9 sources) Polyene Antifungal Start: 08-16-2022 End: 03-26-2023 nystatin (Mycostatin) cream Apply topically twice a day 0 08/16/2022 Active Start: 08-16-2022 nystatin (MYCO STATIN) [id number] UNIT/GM cream Indications: Cutaneous candidiasis Apply topically 2 times daily. 30 g 1 08/16/2022 Active Nystatin Active OLANZapine 5 mg oral tablet (3 sources) Atypical Antipsychotic Start: 03-28-2023 OLANZap ine (ZyPREXA) 5 MG tablet Take 5 mg by mouth every 12 (twelve) hours if needed 0 03/28/2023 Active Start: 03-28-2023 take 5 mg by mouth e very twelve hours Olanzapine Active 5 MG PO Every 12 hours 30 March 28, 2023 12:00am OXcarbazepine 300 mg oral tablet (1 source) Anti-epileptic Agent Start: 01-02-2011 take 1 tablet by mouth three times daily Trileptal 300 mg Tab 300 mg = 1 tab(s), Oral, TID, tab(s), Refills(s) 0 Start Date: 01/02/11 Status: Ordered oxyCODONE hydrochloride 5 mg oral tablet (8 sources) Opioid Agonist Start: 06-23-2023 oxyCODONE (Roxicodone) 5 MG immediate release tablet Start: 09-13-2022 End: 03-12-2023 take 5 mg by mouth every four to six hours Oxycodone Discontinued 5 MG PO EVERY 4-6 HOURS 30 September 13, 2022 March 12, 2023 5:55am polyethylene glycol 3350 07614 mg powder for oral solution (20 sources) Osmotic Laxative Start: 11-11-2019 End: 03-12-2023 polyethylene glycol, PEG, 3350 (Miralax) 17 g packet Start: 07-16-2017 End: 07-16-2017 CLEARLAX 17GRAM/DOSE MISC - 07/16/2017 Provider: Start: 07-16-2017 End: 11-06-2019 ClearLax Oral Powder - 09/04/2018 Provider: Start: 06-11-2016 End: 06-11-2016 CLEARLAX 17GRAM/DOSE MISC - 06/11/2016 Provider: primidone 50 mg oral tablet (1 source) Anti-epileptic Agent Start: 08-24-2012 take 1 tablet by mouth once daily primidone 50 mg Tab 50 mg = 1 tab(s), Oral, Daily, Refills(s) 0 Start Date: 08/24/12 Status: Ordered QC Vitamin B12 500 MCG Oral Tablet (20 sources) Start: 07-28-2021 QC Vitamin B12 500 MCG Oral Tablet 07/28/2021 Provider: Karla Clark CNP Start: 08-11-2020 End: 07-28-2021 QC Vitamin B12 500 MCG Oral Tablet 08/11/2020 - 07/28/2021 Provider: Karla Clark CNP Start: 08-11-2020 QC Vitamin B12 500 MCG Oral Tablet 08/11/2020 Provider: Karla Clark CNP QUEtiapine 25 mg oral tablet (20 sources) Atypical Antipsychotic Start: 03-28-2023 take 1 tablet by mouth in the morning QUEtiapine (SEROquel) 25 MG tablet Take 25 mg by mouth in the morning and 25 mg in the evening. 0 03/28/2023 Active Start: 03-28-2023 take 12.5 mg by mout h twice daily Quetiapine Active 12.5 MG PO BID@0900,1400 30 March 28, 2023 12:00am Start: 09-11-2022 End: 03-15-2023 take 400 mg by mouth once daily at bedtime Quetiapine Active 400 MG PO Daily at bedtime March 15, 2023 6:46am Start: 09-11-2022 End: 03-15-2023 take 300 mg by mouth once daily at bedtime Quetiapine Discontinued 300 MG PO Daily at bedtime September 11, 2022 12:00am March 15, 2023 10:16am Start: 12-14-2021 End: 02-28-2023 QUEtiapine Fumarate 300 MG O ral Tablet 12/14/2021 - 02/28/2023 Provider: Start: 05-08-2021 End: 02-28-2023 QUEtiapine Fumarate 400 MG O ral Tablet 05/08/2021 - 02/28/2023 Provider: Start: 03-31-2020 End: 05-08-2021 take 1 tablet by mouth every twenty-four hours QUEtiapine Fumarate ER 300 MG Oral Tablet Extended Release 24 Hour 03/31/2020 - 05/08/2021 Provider: Start: 09-04-2018 End: 03-31-2020 take 1 tablet by mouth every twenty-four hours QUEtiapine Fumarate ER 400MG Oral Tablet, extended-release 24 hour 09/04/2018 - 03/31/2020 Provider: Start: 07-31-2018 End: 03-31-2020 QUEtiapine Fumarate 50MG Ora l Tablet 07/31/2018 - 03/31/2020 Provider: Start: 07-31-2018 End: 09-04-2018 take 1 tablet by mouth every twenty-four hours QUEtiapine Fumarate ER 300MG Oral Tablet Extended Release 24 Hour 07/31/2018 - 09/04/2018 Provider: Start: 06-28-2018 End: 05-02-2020 SEROquel XR 50 MG OR TB24 - 05/02/2020 Provider: Conversion Provider Start: 06-28-2018 End: 05-02-2020 QUETIAPINE 300 MG MISC 06/28 - 05/02/2020 Provider: Start: 06-28-2018 End: 05-02-2020 QUETIAPINE 50 MG MISC 2018 - 05/02/2020 Provider: Start: 06-28-2018 End: 05-02-2020 QUETIAPINE 150 MG MISC 06/28 - 05/02/2020 Provider: Start: 06-28-2018 End: 06-28-2018 QUETIAPINE 150 MG MISC 06/28 - 06/28/2018 Provider: Start: 06-28-2018 End: 06-28-2018 QUETIAPINE 50 MG MISC 2018 - 06/28/2018 Provider: Start: 06-28-2018 End: 06-28-2018 QUETIAPINE 300 MG MISC 06/28 - 06/28/2018 Provider: Start: 06-28-2018 End: 06-28-2018 QUETIAPINE 300MG MISC 2018 - 06/28/2018 Provider: Start: 06-28-2018 End: 06-28-2018 QUETIAPINE 50MG MISC 019 - 06/28/2018 Provider: Start: 06-28-2018 End: 06-28-2018 QUETIAPINE 150MG MISC 2018 - 06/28/2018 Provider: Start: 08-24-2012 End: 05-02-2020 SEROquel XR 200 MG OR TB24 06/28/2018 - 05/02/2020 Provider: Conversion Provider QUEtiapine (SERO QUEL XR) 400 MG extended release tablet Take 600 mg by mouth nightly 0 Active take 1 tablet by emiliano th once daily QUEtiapine (SEROQUEL XR) 400 MG extended release tablet Take 400 mg by mouth nightly 0 Active take 1 tablet by emiliano th twice daily quetiapine 50 mg oral tablet take 1 tablet (50 mg) by oral route 2 times per day End: 07-30-2017 take 1 tablet by mouth once daily quetiapine 50 mg oral tablet 07/30/2017 take 1 tablet (50 mg) by oral route 1 times per day D/C By Sprout take 1 tablet by once daily at bedtime quetiapine 300 mg oral tablet extended release 24 hr take 1 tablet (300 mg) by oral route once daily at bedtime End: 06-12-2016 take 2 tablets by mouth once daily at bedtime Seroquel XR 50 mg oral tablet extended release 24 hr 06/12/2016 take 2 tablets (100 mg) by oral route [facility] End: 03-05-2017 take 1 tablet by mouth every twenty-four hours in the morning Seroquel XR 50 mg oral tablet extended release 24 hr 03/05/2017 Take one tablet in the morning End: 03-05-2017 take 1 tablet by mouth once daily in the evening quetiapine 150 mg oral tablet extended release 24 hr 03/05/2017 take 1 tablet (150 mg) by oral route once daily in the evening without food or with a light meal risperiDONE 25 mg injection (20 sources) Atypical Antipsychotic Start: 12-14-2021 inject 25 mg by intramuscular injection every other week Risperidone Microspheres (Risperdal Consta) 25 mg/2 mL suspension,extended rel recon Active 25 MG IM EVERY 2 WEEKS September 11, 2022 12:00am Start: 06-17-2020 End: 05-08-2021 RisperDAL Consta 25 MG Intramuscular Suspension Reconstituted ER 06/17/2020 - 05/08/2021 Provider: Start: 06-28-2018 End: 05-02-2020 RisperDAL 0.5MG Oral Tablet 07/31/2018 - 11/06/2018 Provider: Start: 06-28-2018 End: 05-02-2020 risperiDONE 1 MG OR TABS 06/28/2018 - 05/02/2020 Provider: Conversion Provider risperiDONE micr ospheres (RISPERDAL CONSTA) 37.5 MG injection Inject 37.5 mg into the muscle every 14 days. 0 Active take 2 mL by intramu scular injection every other week Risperdal Consta 37.5 mg/2 mL intramuscular syringe inject 2 milliliters (37.5 mg) by intramuscular route by deep gluteal injection repeat every 2 weeks topiramate 25 mg oral tablet (20 sources) Start: 10-27-2020 End: 11-26-2020 take 3 tablets by mouth once daily topiramate (TOPAMAX) 25 MG tablet Take 3 tablets by mouth daily 90 tablet 5 10/27/2020 Active Start: 04-18-2020 End: 07-17-2020 take 3 tablets by mouth once daily topiramate (TOPAMAX) 25 MG tablet Take 3 tablets by mouth daily 270 tablet 1 04/18/2020 07/17/2020 Active Start: 02-15-2020 End: 04-13-2020 take 2 tablets by mouth once daily at bedtime topiramate (TOPAMAX) 25 MG tablet TAKE 2 TABS (50MG) BY MOUTH DAILY AT BEDTIME 60 tablet 0 03/14/2020 04/13/2020 Active Start: 03-12-2019 take 2 tablets by mo uth once daily at bedtime topiramate (TOPAMAX) 25 MG tablet TAKE 2 TABS (50MG) BY MOUTH DAILY AT BEDTIME 60 tablet 1 03/12/2019 Active Start: 02-12-2019 take 2 tablets by mo uth once daily at bedtime topiramate (TOPAMAX) 25 MG tablet TAKE 2 TABS (50MG) BY MOUTH DAILY AT BEDTIME 62 tablet 0 02/12/2019 Active Start: 11-06-2018 End: 02-28-2023 take 1 tablet by mouth in the morning topiramate (Topamax) 25 MG tablet Take 25 mg by mouth in the morning. 0 09/11/2022 Active vitamin b12 0.5 mg oral tablet (17 sources) Vitamin B12 Start: 03-26-2023 cyanocobalamin (Vitamin B-12) 500 MCG tablet Daily 0 03/26/2023 Active Start: 09-11-2022 End: 03-12-2023 take 1 tablet by mouth once daily Cyanocobalamin (Vitamin B-12) (Vitamin B-12) 500 mcg Tablet Discontinued 500 MCG PO Daily September 11, 2022 12:00am March 12, 2023 5:55am Vitamin B12 Acti ve Completed/Discontinued Medications Medication Drug Class(es) Dates Sig (Normalized) Sig (Original) acetaminophen 500 mg oral tablet (20 sources) Start: 09-18-2022 End: 11-19-2022 Acetaminophen 500 MG Oral Tablet 09/18/2022 - 11/19/2022 Provider: Start: 09-13-2022 End: 03-12-2023 take 2 tablets by mouth every eight hours Acetaminophen (Tylenol Extra Strength) 500 mg tablet Discontinued 1000 MG PO Every 8 hours 180 30 September 13, 2022 12:00am March 12, 2023 5:54am Start: 02-14-2022 End: 09-14-2022 take 650 mg by mouth every eight hours Acetaminophen Discontinued 650 MG PO Q8H September 11, 2022 12:00am September 14, 2022 11:15am Start: 07-31-2018 End: 11-03-2021 Tylenol 8 Hour Arthritis Amadeo n 650MG Oral Tablet Extended Release 08/18/2018 - 08/25/2019 Provider: Karla Clark CNP Start: 06-26-2016 End: 11-03-2021 Tylenol 8 Hour Arthritis Amadeo n 650MG Oral Tablet Extended Release 07/31/2018 - 09/04/2018 Provider: Suzie Ac tive take 1 tablet by emiliano th every six hours as needed for pain acetaminophen (TYLENOL) 325 MG tablet Take 325 mg by mouth every 6 hours as needed for Pain. 0 Active acetaminophen 325 mg / HYDROcodone bitartrate 5 mg oral tablet (18 sources) Opioid Agonist Start: 03-26-2023 End: 03-28-2023 take 0.5 tablet by mouth every six hours Hydrocodone-Acetaminophen Discontinued 0.5 TAB PO Q6H March 26, 2023 12:00am March 28, 2023 12:01pm Start: 09-11-2022 End: 09-14-2022 take 1 tablet by mouth every six hours Hydrocodone-Acetaminophen Discontinued 1 TAB PO Q6H September 11, 2022 12:00am September 14, 2022 11:15am Start: 09-06-2022 End: 11-19-2022 HYDROcodone-acetaminophen (N orco) 5-325 MG tablet Start: 08-24-2012 Vicodin 500 mg -5 mg Tab 1 tab(s), Oral, q4hr PRN as needed for pain, 12 tab(s), Refill(s) 0, 0, Take one tab by mouth every four hours as needed for pain, Print Requisition Start Date: 08/24/12 Status: Ordered ACIDOPHILUS PROBIOTIC 100 million CELL-10 MG MISC (20 sources) Start: 02-21-2017 End: 02-21-2017 ACIDOPHILUS PROBIOTIC 100 million CELL-10 MG MISC 02/21/2017 - 02/21/2017 Provider: Start: 03-20-2016 End: 07-23-2019 ACIDOPHILUS PROBIOTIC 100 mi llion CELL-10 MG MISC 03/20/2016 - 07/23/2019 Provider: Start: 03-20-2016 End: 03-20-2016 ACIDOPHILUS PROBIOTIC 100 mi llion CELL-10 MG MISC 03/20/2016 - 03/20/2016 Provider: ACIDOPHILUS PROBIOTIC 100 million CELL-10 MG MISC (20 sources) Start: 02-21-2017 End: 05-02-2020 ACIDOPHILUS PROBIOTIC 100 million CELL-10 MG MISC 02/21/2017 - 05/02/2020 Provider: Start: 03-20-2016 End: 07-23-2019 ACIDOPHILUS PROBIOTIC 100 mi llion CELL-10 MG MISC 03/20/2016 - 07/23/2019 Provider: ACIDOPHILUS PROBIOTIC 100 millionCELL-10 MG MISC (2 sources) Start: 02-21-2017 End: 02-21-2017 ACIDOPHILUS PROBIOTIC 100 millionCELL-10 MG MISC 02/21/2017 - 02/21/2017 Provider: Start: 03-20-2016 End: 03-20-2016 ACIDOPHILUS PROBIOTIC 100 mi llionCELL-10 MG MISC 03/20/2016 - 03/20/2016 Provider: ACIDOPHILUS PROBIOTIC 100 millionCELL-10 MG MISC (4 sources) Start: 02-21-2017 End: 02-21-2017 ACIDOPHILUS PROBIOTIC 100 millionCELL-10 MG MISC 02/21/2017 - 02/21/2017 Provider: Start: 03-20-2016 End: 03-20-2016 ACIDOPHILUS PROBIOTIC 100 mi llionCELL-10 MG MISC 03/20/2016 - 03/20/2016 Provider: Tudorza Pressair 400 mcg/actuation inhalation aerosol powdr breath activated (16 sources) take 1 puff(s) by inhalation every twelve hours Tudorza Pressair 400 mcg/actuation inhalation aerosol powdr breath activated inhale 1 puff (400 mcg) by inhalation route every 12 hours End: 06-12-2016 take 1 puff(s) by inhalation once daily Tudorza Pressair 400 mcg/actuation inhalation aerosol powdr breath activated 06/12/2016 inhale 1 puff (400 mcg) by inhalation route every day Artificial Tears 0.1-0.3% Ophthalmic Solution (18 sources) Start: 11-06-2018 End: 03-31-2020 Artificial Tears 0.1-0.3% Ophthalmic Solution 11/06/2018 - 03/31/2020 Provider: Start: 11-06-2018 Artificial Tea rs 0.1-0.3% Ophthalmic Solution 11/06/2018 Provider: Artificial Tears 0.1-0.3% Ophthalmic Solution (14 sources) Start: 11-06-2018 End: 03-31-2020 Artificial Tears 0.1-0.3% Ophthalmic Solution 11/06/2018 - 03/31/2020 Provider: azithromycin 250 mg oral tablet (20 sources) Macrolide Antimicrobial Start: 03-20-2022 End: 08-27-2022 Azithromycin 250 MG Oral Tablet 06/18/2022 - 08/27/2022 Provider: Karla Clark CNP Start: 07-28-2021 End: 11-03-2021 Azithromycin 250 MG Oral Tab let 07/28/2021 - 11/03/2021 Provider: Karla Clark CNP Start: 03-31-2020 End: 05-06-2020 Azithromycin 250 MG Oral Tab let 03/31/2020 - 05/06/2020 Provider: Karla Clark CNP Start: 05-22-2016 End: 05-27-2016 take 2 tablets by mouth once daily, then take 1 tablet by mouth once daily azithromycin 250 mg oral tablet 05/22/2016 05/27/2016 take 2 tablets (500 mg) by oral route once daily for 1 day then 1 tablet (250 mg) by oral route once daily for 4 days Start: 09-22-2015 End: 07-23-2019 Azithromycin 250 MG OR TABS 05/22/2016 - 07/23/2019 Provider: Start: 09-22-2015 End: 09-27-2015 take 2 tablets by mouth once daily, then take 1 tablet by mouth once daily azithromycin 250 mg oral tablet 09/22/2015 09/27/2015 take 2 tablets (500 mg) by oral route once daily for 1 day then 1 tablet (250 mg) by oral route once daily for 4 days B12 Folate 800-800 MCG Oral Capsule (14 sources) Start: 03-16-2020 End: 08-11-2020 B12 Folate 800-800 MCG Oral Capsule 03/16/2020 - 08/11/2020 Provider: Karla Clark CNP Blood Pressure Cuff (6 sources) Start: 09-22-2015 Blood Pressure Cuff miscellaneous misc 09/22/2015 use as directed (dx HTN I10) BLOOD PRESSURE CUFF MISC (18 sources) Start: 09-22-2015 End: 07-23-2019 BLOOD PRESSURE CUFF MISC 09/22/2015 - 07/23/2019 Provider: Start: 09-22-2015 End: 09-22-2015 BLOOD PRESSURE CUFF MISC - 09/22/2015 Provider: BLOOD PRESSURE CUFF MISC (16 sources) Start: 09-22-2015 End: 07-23-2019 BLOOD PRESSURE CUFF MISC - 07/23/2019 Provider: Start: 09-22-2015 End: 09-22-2015 BLOOD PRESSURE CUFF MISC - 09/22/2015 Provider: Blood Pressure Cuff miscellaneous misc (1 source) Start: 09-22-2015 Blood Pressure Cuff miscellaneous misc 09/22/2015 use as directed (dx HTN I10) Brompheniramine / Pseudoephedrine (20 sources) alpha-Adrenergic Agonist Start: 04-17-2018 End: 05-02-2020 BROMFED DM 2-30-10 MG/5 ML MISC 04/17/2018 - 05/02/2020 Provider: Start: 04-17-2018 End: 04-17-2018 BROMFED DM 2-30-10 MG/5 ML M [facility] 04/17/2018 - 04/17/2018 Provider: Start: 04-17-2018 End: 04-17-2018 BROMFED DM 2-30-10MG/5 ML [facility] 04/17/2018 - 04/17/2018 Provider: Start: 07-30-2017 End: 05-02-2020 BROMFED DM 2-30-10 MG/5 ML M [facility] 07/30/2017 - 05/02/2020 Provider: Start: 07-30-2017 End: 07-30-2017 BROMFED DM 2-30-10 MG/5 ML M [facility] 07/30/2017 - 07/30/2017 Provider: Start: 07-30-2017 End: 07-30-2017 BROMFED DM 2-30-10MG/5 ML [place] 07/30/2017 - 07/30/2017 Provider: Start: 05-17-2017 End: 05-02-2020 BROMFED DM 2-30-10 MG/5 [place] [facility] [place]17[place] - 05/02/2020 Provider: Start: 05-17-2017 End: 05-17-2017 BROMFED DM 2-30-10 MG/5 ML [facility] [place] 05/17/2017 - 05/17/2017 Provider: Start: 05-17-2017 End: 05-17-2017 BROMFED DM 2-30-10MG/5 ML [facility] 05/17/2017 - 05/17/2017 Provider: Start: 05-22-2016 End: 07-23-2019 BROMFED DM 2-30-10 MG/5 ML [facility] [place] 05/22/2016 - 07/23/2019 Provider: Start: 05-22-2016 End: 05-22-2016 BROMFED DM 2-30-10 MG/5 ML [facility] [place] 05/22/2016 - 05/22/2016 Provider: Start: 05-22-2016 End: 05-22-2016 [place] DM 2-30-10MG/5 [place] [facility] [place] - 05/22/2016 Provider: Start: 12-09-2015 End: 07-23-2019 BROMFED DM 2-30-10 MG/5 ML [facility] [place] 12/09/2015 - 07/23/2019 Provider: Start: 12-09-2015 End: 12-09-2015 BROMFED DM 2-30-10 MG/5 ML [facility] [place] 12/09/2015 - 12/09/2015 Provider: Start: 12-09-2015 End: 12-09-2015 BROMFED DM 2-30-10MG/5 [place] [facility] [place] - 12/09/2015 Provider: Symbicort 160-4.5 mcg/actuation inhalation HFA aerosol inhaler (11 sources) Corticosteroid, beta2-Adrenergic Agonist Start: 06-12-2016 End: 06-19-2016 take 2 puff(s) by inhalation twice daily in the morning Symbicort 160-4.5 mcg/actuation inhalation HFA aerosol inhaler 06/12/2016 06/19/2016 inhale 2 puffs by inhalation route 2 times per day in the morning and evening Start: 06-12-2016 End: 06-12-2016 SYMBICORT 160-4.5MCG/ACTUAT MISC 06/12/2016 - 06/12/2016 Provider: Start: 06-12-2016 End: 06-19-2016 take 2 puff(s) by inhalation twice daily in the morning Symbicort 160-4.5 mcg/actuation inhalation HFA aerosol inhaler 06/12/2016 06/19/2016 inhale 2 puffs by inhalation route 2 times per day in the morning and evening Calcium (20 sources) Phosphate Binder, Calcium Start: 11-26-2018 End: 03-16-2020 Calcium 600+D3 [id number] Oral Tablet 11/26/2018 - 03/16/2020 Provider: Karla Clark CNP Start: 11-26-2018 End: 11-21-2019 Calcium 600+D3 [id number] Oral Tablet 11/26/2018 - 11/21/2019 Provider: Karla Clark CNP Start: 07-31-2018 Calcium 600+D3 [id number] Oral Tablet 07/31/2018 Provider: Start: 08-24-2012 take 2 tablets by mo ut once daily Calcium 600 D Tab 2 tab(s), Oral, Daily, Refill(s) 0 Start Date: 08/24/12 Status: Ordered CALCIUM 600 + D(3) 600 mg(1,500mg) -400 UNIT MISC (20 sources) Start: 06-28-2018 End: 06-28-2018 CALCIUM 600 + D(3) 600 mg(1,500mg) -400 UNIT [facility] 06/28/2018 - 06/28/2018 Provider: Start: 11-20-2017 End: 11-20-2017 CALCIUM 600 + D(3) 600 mg(1, 500mg) -400 UNIT MISC 11/20/2017 - 11/20/2017 Provider: Start: 11-09-2016 End: 11-09-2016 CALCIUM 600 + D(3) 600 mg(1, 500mg) -400 UNIT MISC 11/09/2016 - 11/09/2016 Provider: CALCIUM 600 + D(3) 600 mg(1,500mg) -400 UNIT MISC (20 sources) Start: 06-28-2018 End: 05-02-2020 CALCIUM 600 + D(3) 600 mg(1,500mg) -400 UNIT MISC 06/28/2018 - 05/02/2020 Provider: Start: 11-20-2017 End: 05-02-2020 CALCIUM 600 + D(3) 600 mg(1, 500mg) -400 UNIT MIS 11/20/2017 - 05/02/2020 Provider: Start: 11-09-2016 End: 05-02-2020 CALCIUM 600 + D(3) 600 mg(1, 500mg) -400 UNIT [facility] [place] 11/09/2016 - 05/02/2020 Provider: CALCIUM 600 + D(3) 600 mg(1,500mg)-400 UNIT MISC (3 sources) Start: 06-28-2018 End: 06-28-2018 CALCIUM 600 + D(3) 600 mg(1,500mg)-400 UNIT [facility] [place] 06/28/2018 - 06/28/2018 Provider: Start: 11-20-2017 End: 11-20-2017 CALCIUM 600 + D(3) 600 mg(1, 500mg)-400 UNIT [facility] [place] 11/20/2017 - 11/20/2017 Provider: Start: 11-09-2016 End: 11-09-2016 CALCIUM 600 + D(3) 600 mg(1, 500mg)-400 UNIT [facility] [place] 11/09/2016 - 11/09/2016 Provider: CALCIUM 600 + D(3) 600 mg(1,500mg)-400 UNIT MISC (6 sources) Start: 06-28-2018 End: 06-28-2018 CALCIUM 600 + D(3) 600 mg(1,500mg)-400 UNIT [facility] [place] 06/28/2018 - 06/28/2018 Provider: Start: 11-20-2017 End: 11-20-2017 CALCIUM 600 + D(3) 600 mg(1, 500mg)-400 UNIT [facility] [place] 11/20/2017 - 11/20/2017 Provider: Start: 11-09-2016 End: 11-09-2016 CALCIUM 600 + D(3) 600 mg(1, 500mg)-400 UNIT [facility] [place] 11/09/2016 - 11/09/2016 Provider: Calcium 600+D High Potency 600-400 MG-UNIT Oral Tablet (16 sources) Start: 03-12-2019 End: 04-15-2019 Calcium 600+D High Potency 600-400 MG-UNIT Oral Tablet 03/12/2019 - 04/15/2019 Provider: Karla Clark CNP Calcium 600+D High Potency 600-400 MG-UNIT Oral Tablet (14 sources) Start: 03-12-2019 End: 04-15-2019 Calcium 600+D High Potency 600-400 MG-UNIT Oral Tablet 03/12/2019 - 04/15/2019 Provider: Karla Clark CNP Calcium 600+D3 600-400 MG-UN IT Oral Tablet (14 sources) Start: 03-16-2020 End: 02-24-2021 Calcium 600+D3 600-400 MG-UN IT Oral Tablet 03/16/2020 - 02/24/2021 Provider: Karla Clark CNP CALCIUM CARBONATE 500 mg calcium (1,250 MG) MISC (17 sources) Start: 06-28-2018 End: 06-28-2018 CALCIUM CARBONATE 500 mg rl cium (1,250 MG) MISC 06/28/2018 - 06/28/2018 Provider: CALCIUM CARBONATE 500 mg calcium (1,250 MG) MISC (14 sources) Start: 06-28-2018 End: 05-02-2020 CALCIUM CARBONATE 500 mg rl cium (1,250 MG) MISC 06/28/2018 - 05/02/2020 Provider: Calcium Carbonate-Vitamin D2 (Oyster Shell Calcium-Vit D2) 500 mg(1,250mg) -200 unit Tablet (1 source) Start: 03-26-2023 End: 03-26-2023 Calcium Carbonate-Vitamin D2 (Oyster Shell Calcium-Vit D2) 500 mg(1,250mg) -200 unit Tablet Discontinued TAB TABLET March 26, 2023 12:00am March 26, 2023 1:40am Camphor / Eucalyptus oil / Menthol (20 sources) Start: 02-21-2016 End: 07-23-2019 Vicks VapoRub 4.7-1.2-2.6% E X OINT 02/21/2016 - 07/23/2019 Provider: Start: 02-21-2016 End: 02-21-2016 Vicks VapoRub 4.7-1.2-2.6% E X OINT 02/21/2016 - 02/21/2016 Provider: Start: 02-21-2016 End: 02-21-2016 Vicks VapoRub 4.7-1.2-2.6% E X OINT 02/21/2016 - 02/21/2016 Provider: Start: 02-21-2016 Vicks Vaporub 4.7-1.2-2.6 % topical ointment 02/21/2016 apply to affected area externally three times daily as needed for sinus congestion capsaicin 0.25 mg/ml topical cream (20 sources) Start: 12-19-2017 capsaicin 0.02 5 % topical cream 12/19/2017 apply to the left ankle by topical route 3 times per day Start: 12-19-2017 End: 05-02-2020 Capsaicin 0.025% EX CREA - 05/02/2020 Provider: Carpal Tunnel Wrist Stabiliz er Miscellaneous (14 sources) Start: 07-23-2019 End: 07-28-2021 Carpal Tunnel Wrist Stabiliz er Miscellaneous 07/23/2019 - 07/28/2021 Provider: Karla Clark CNP Start: 07-23-2019 Carpal Tunnel Wrist Stabilizer Miscellaneous 07/23/2019 Provider: Karla Clark CNP Cetirizine (20 sources) Histamine-1 Receptor Antagonist Start: 05-15-2018 End: 05-02-2020 ZYRTEC 10 mg MISC 05/15/2018 - 05/02/2020 Provider: Start: 05-15-2018 End: 05-15-2018 ZYRTEC 10 mg MISC 05/15/2018 - 05/15/2018 Provider: Start: 05-22-2017 End: 11-19-2019 ZyrTEC Allergy 10MG Oral Tab let 07/31/2018 - 03/05/2019 Provider: Start: 05-22-2017 End: 05-02-2020 ZYRTEC 10 mg MISC 05/22/2017 - 05/02/2020 Provider: Start: 05-22-2017 End: 05-22-2017 ZYRTEC 10 mg MISC 05/22/2017 - 05/22/2017 Provider: Start: 05-17-2017 End: 05-02-2020 ZYRTEC 10 mg MISC 05/17/2017 - 05/02/2020 Provider: Start: 05-17-2017 End: 05-17-2017 ZYRTEC 10 mg MISC 05/17/2017 - 05/17/2017 Provider: Start: 05-17-2016 End: 07-23-2019 ZYRTEC 10 mg MISC 05/17/2016 - 07/23/2019 Provider: Start: 05-17-2016 End: 05-17-2016 ZYRTEC 10 mg MISC 05/17/2016 - 05/17/2016 Provider: Start: 12-08-2015 End: 07-23-2019 ZYRTEC 10 mg MISC 12/08/2015 - 07/23/2019 Provider: Start: 12-08-2015 End: 12-08-2015 ZYRTEC 10 mg MISC 12/08/2015 - 12/08/2015 Provider: Cetirizine / Pseudoephedrine (20 sources) alpha-Adrenergic Agonist, Histamine-1 Receptor Antagonist Start: 02-21-2016 End: 07-23-2019 ZYRTEC-D 5-120 MG MISC 02/21/2016 - 07/23/2019 Provider: Start: 02-21-2016 End: 02-21-2016 ZYRTEC-D 5-120 MG MISC 02/20 - 02/21/2016 Provider: Start: 02-21-2016 End: 02-21-2016 ZYRTEC-D 5-120MG MISC 2015 - 02/21/2016 Provider: Start: 02-21-2016 take 1 tablet by emiliano th every twelve hours Zyrtec-D 5-120 mg oral tablet extended release 12 hr 02/21/2016 take 1 tablet by oral route every 12 hours ciprofloxacin 500 mg oral tablet (20 sources) Quinolone Antimicrobial Start: 10-25-2015 End: 05-02-2020 Cipro 500 MG OR TABS 10/25/2015 - 07/23/2019 Provider: CLEARLAX 17 GRAM/DOSE MISC (20 sources) Start: 07-16-2017 End: 07-16-2017 CLEARLAX 17 GRAM/DOSE MISC 07/16/2017 - 07/16/2017 Provider: Start: 06-11-2016 End: 07-23-2019 CLEARLAX 17 GRAM/DOSE MISC 0 06/11/2016 - 07/23/2019 Provider: Start: 06-11-2016 End: 06-11-2016 CLEARLAX 17 GRAM/DOSE MISC 0 06/11/2016 - 06/11/2016 Provider: CLEARLAX 17 GRAM/DOSE MISC (20 sources) Start: 07-16-2017 End: 05-02-2020 CLEARLAX 17 GRAM/DOSE MISC 07/16/2017 - 05/02/2020 Provider: Start: 06-11-2016 End: 07-23-2019 CLEARLAX 17 GRAM/DOSE MISC 0 06/11/2016 - 07/23/2019 Provider: cordicidin cough and cold (8 sources) Start: 08-21-2016 take 1 tablet by mouth every six hours as needed for cough cordicidin cough and cold 08/21/2016 take 1 tablet by mouth every 6 hours as needed for cough / cold Start: 08-21-2016 take 1 tablet by emiliano th every six hours as needed for cough cordicidin cough and cold 08/21/2016 take 1 tablet by mouth every 6 hours as needed for cough / cold CORDICIDIN COUGH AND COLD NH SC (20 sources) Start: 08-21-2016 End: 08-21-2016 CORDICIDIN COUGH AND COLD NH SC 08/21/2016 - 08/21/2016 Provider: Start: 06-26-2016 End: 06-26-2016 CORDICIDIN COUGH AND COLD NH SC 06/26/2016 - 06/26/2016 Provider: Start: 04-10-2016 End: 07-23-2019 CORDICIDIN COUGH AND COLD NH SC 04/10/2016 - 07/23/2019 Provider: Start: 04-10-2016 End: 04-10-2016 CORDICIDIN COUGH AND COLD NH SC 04/10/2016 - 04/10/2016 Provider: CORDICIDIN COUGH AND COLD NH SC (20 sources) Start: 08-21-2016 End: 05-02-2020 CORDICIDIN COUGH AND COLD NH SC 08/21/2016 - 05/02/2020 Provider: Start: 08-21-2016 End: 08-21-2016 CORDICIDIN COUGH AND COLD NH SC 08/21/2016 - 08/21/2016 Provider: Start: 06-26-2016 End: 05-02-2020 CORDICIDIN COUGH AND COLD NH SC 06/26/2016 - 05/02/2020 Provider: Start: 06-26-2016 End: 06-26-2016 CORDICIDIN COUGH AND COLD NH SC 06/26/2016 - 06/26/2016 Provider: Start: 04-10-2016 End: 07-23-2019 CORDICIDIN COUGH AND COLD NH SC 04/10/2016 - 07/23/2019 Provider: Start: 04-10-2016 End: 04-10-2016 CORDICIDIN COUGH AND COLD [place] SC 04/10/2016 - 04/10/2016 Provider: dextromethorphan hydrobromide 20 mg / guaiFENesin 400 mg oral tablet (12 sources) Uncompetitive B-zabesb-L-aspartate Receptor Antagonist, Sigma-1 Agonist Start: 03-26-2023 End: 03-26-2023 Dextromethorphan-Guaifenesin (Mucus Relief Dm) 20-400 mg Tablet Discontinued 30 - 600 TAB TABLET March 26, 2023 12:00am March 26, 2023 1:46am Start: 03-26-2023 End: 03-28-2023 take 1 tablet by mouth every twelve hours Dextromethorphan-Guaifenesin (Mucus Dm) 30-600 mg tablet extended release 12 hr Discontinued 1 TAB PO Q12H March 26, 2023 12:00am March 28, 2023 12:01pm Start: 01-18-2023 take 1 tablet by emiliano th once dextromethorphan-guaiFENesin (Mucinex DM ) 30-600 MG 12 hr tablet Take 1 tablet by mouth every 12 (twelve) hours if needed 0 01/18/2023 Active Start: 09-22-2015 take 10 mL by mouth every four to six hours as needed for cough Tussin DM 10-100 mg/5 mL oral liquid 09/22/2015 take 10 milliliters by oral route every 4-6 hours as needed for cough/ congestion Diclofenac (20 sources) Nonsteroidal Anti-inflammatory Drug Start: 03-31-2020 Diclofenac Sodium 1% Transdermal Gel 03/31/2020 Provider: Start: 03-31-2020 End: 03-20-2022 Diclofenac Sodium 1% Transde rmal Gel 03/31/2020 - 03/20/2022 Provider: doxycycline hyclate 100 mg oral capsule (20 sources) Tetracycline-class Drug Start: 04-15-2019 End: 09-22-2019 Doxycycline Hyclate 100 MG Oral Capsule 04/15/2019 - 09/22/2019 Provider: Brandy Kelley CNP DULERA 200-5 MCG/ACTUAT MISC (20 sources) Start: 07-25-2017 End: 07-25-2017 DULERA 200-5 MCG/ACTUAT MISC 07/25/2017 - 07/25/2017 Provider: Start: 06-19-2016 End: 06-19-2016 DULERA 200-5 MCG/ACTUAT MISC 06/19/2016 - 06/19/2016 Provider: DULERA 200-5 MCG/ACTUAT MISC (20 sources) Start: 07-25-2017 End: 05-02-2020 DULERA 200-5 MCG/ACTUAT MISC 07/25/2017 - 05/02/2020 Provider: Start: 06-19-2016 End: 05-02-2020 DULERA 200-5 MCG/ACTUAT MISC 06/19/2016 - 05/02/2020 Provider: Erythromycin (11 sources) Macrolide, Macrolide Antimicrobial Start: 06-28-2018 End: 06-28-2018 ERYTHROMYCIN 5 mg/gram(0.5 %) MISC 06/28/2018 - 06/28/2018 Provider: erythromycin 5 m g/gram (0.5 %) ophthalmic ointment apply 1 cm ribbon into the lower conjunctival sac in both eyes by ophthalmic route 2 times per day erythromycin 5 m g/gram (0.5 %) ophthalmic ointment apply 1 cm ribbon into the lower conjunctival sac in both eyes by ophthalmic route 2 times per day ERYTHROMYCIN 5 mg/gram (0.5 %) MISC (17 sources) Start: 06-28-2018 End: 06-28-2018 ERYTHROMYCIN 5 mg/gram (0.5 %) MISC 06/28/2018 - 06/28/2018 Provider: ERYTHROMYCIN 5 mg/gram (0.5 %) MISC (14 sources) Start: 06-28-2018 End: 05-02-2020 ERYTHROMYCIN 5 mg/gram (0.5 %) MISC 06/28/2018 - 05/02/2020 Provider: eszopiclone 3 mg oral tablet (20 sources) Start: 06-28-2018 End: 05-02-2020 Lunesta 3MG Oral Tablet 07/31/2018 - 03/31/2020 Provider: take 3 tablets by mouth once [place] ly eszopiclone (LUNESTA) 1 MG TABS Take 3 mg by mouth nightly 0 Active take 1 tablet by emiliano th once daily at bedtime Lunesta 3 mg oral tablet take 1 tablet ( 3 mg) by oral route once daily at bedtime FLONASE ALLERGY RELIEF 50 MCG/ACTUAT MISC (20 sources) Start: 10-14-2017 End: 10-14-2017 FLONASE ALLERGY RELIEF 50 MCG/ACTUAT MISC 10/14/2017 - 10/14/2017 Provider: Start: 09-25-2016 End: 09-25-2016 FLONASE ALLERGY RELIEF 50 MC G/ACTUAT MISC 09/25/2016 - 09/25/2016 Provider: Start: 09-22-2015 End: 07-23-2019 FLONASE ALLERGY RELIEF 50 MC G/ACTUAT MISC 09/22/2015 - 07/23/2019 Provider: Start: 09-22-2015 End: 09-22-2015 FLONASE ALLERGY RELIEF 50 MC G/ACTUAT MISC 09/22/2015 - 09/22/2015 Provider: FLONASE ALLERGY RELIEF 50 MCG/ACTUAT MISC (20 sources) Start: 10-14-2017 End: 05-02-2020 FLONASE ALLERGY RELIEF 50 MCG/ACTUAT MISC 10/14/2017 - 05/02/2020 Provider: Start: 09-25-2016 End: 05-02-2020 FLONASE ALLERGY RELIEF 50 MC G/ACTUAT MISC 09/25/2016 - 05/02/2020 Provider: Start: 09-22-2015 End: 07-23-2019 FLONASE ALLERGY RELIEF 50 MC G/ACTUAT MISC 09/22/2015 - 07/23/2019 Provider: FLONASE ALLERGY RELIEF 50MCG/ACTUAT MISC (3 sources) Start: 10-14-2017 End: 10-14-2017 FLONASE ALLERGY RELIEF 50MCG/ACTUAT MISC 10/14/2017 - 10/14/2017 Provider: Start: 09-25-2016 End: 09-25-2016 FLONASE ALLERGY RELIEF 50MCG /ACTUAT MISC 09/25/2016 - 09/25/2016 Provider: Start: 09-22-2015 End: 09-22-2015 FLONASE ALLERGY RELIEF 50MCG /ACTUAT MISC 09/22/2015 - 09/22/2015 Provider: FLONASE ALLERGY RELIEF 50MCG/ACTUAT MISC (6 sources) Start: 10-14-2017 End: 10-14-2017 FLONASE ALLERGY RELIEF 50MCG/ACTUAT MISC 10/14/2017 - 10/14/2017 Provider: Start: 09-25-2016 End: 09-25-2016 FLONASE ALLERGY RELIEF 50MCG /ACTUAT MISC 09/25/2016 - 09/25/2016 Provider: Start: 09-22-2015 End: 09-22-2015 FLONASE ALLERGY RELIEF 50MCG /ACTUAT MISC 09/22/2015 - 09/22/2015 Provider: fluconazole 150 mg oral tablet (20 sources) Azole Antifungal Start: 06-06-2020 End: 05-08-2021 Diflucan 150 MG Oral Tablet 06/06/2020 - 05/08/2021 Provider: Karla Clark CNP Start: 03-20-2016 End: 05-02-2020 Diflucan 150 MG OR TABS 03/03 - 07/23/2019 Provider: 60 actuat formoterol fumarate 0.005 mg/actuat / mometasone furoate 0.2 mg/actuat metered dose inhaler (20 sources) Corticosteroid, beta2-Adrenergic Agonist Start: 07-31-2018 End: 11-19-2022 Dulera 200-5MCG/ACT Inhalation Aerosol 10/23/2018 - 10/31/2019 Provider: Karla Clark CNP Start: 07-25-2017 End: 07-25-2017 DULERA 200-5MCG/ACTUAT MISC 07/25/2017 - 07/25/2017 Provider: Start: 06-19-2016 End: 06-19-2016 DULERA 200-5MCG/ACTUAT MISC 06/19/2016 - 06/19/2016 Provider: Start: 06-19-2016 take 2 puff(s) by in halation twice daily in the morning Dulera 200-5 mcg/actuation inhalation HFA aerosol inhaler 06/19/2016 inhale 2 puffs by inhalation route 2 times per day in the morning and evening mometasone-formo terol (Dulera 200) 200-5 MCG/ACT inhaler Inhale 2 puffs 0 Active take 2 puff(s) by in halation every twelve hours mometasone-formoterol (DULERA) 200-5 MCG/ACT inhaler Inhale 2 puffs into the lungs every 12 hours 0 Active gadoteridol (PROHANCE) injec tion 13 mL (2 sources) Start: 08-01-2021 End: 08-01-2021 gadoteridol (PROHANCE) injection 13 mL Start: 06-30-2020 End: 06-30-2020 gadoteridol (PROHANCE) injec tion 13 mL Indomethacin (20 sources) Nonsteroidal Anti-inflammatory Drug Start: 06-28-2018 End: 05-02-2020 INDOMETHACIN 50 MG MISC 06/28/2018 - 05/02/2020 Provider: Start: 06-28-2018 End: 06-28-2018 INDOMETHACIN 50 MG MISC 06/04 - 06/28/2018 Provider: Start: 06-28-2018 End: 06-28-2018 INDOMETHACIN 50MG MISC 06/28 - 06/28/2018 Provider: lactobacillus acidophilus [id number] unt / pectin 10 mg oral capsule (11 sources) Start: 03-26-2023 End: 03-26-2023 take 1 capsule by mouth once daily Acidophilus-Pectin, [place] (Acidophilus Probiotic) 100 million cell-10 mg Capsule Discontinued 1 CAP PO Daily March 26, 2023 12:00am March 26, 2023 1:21am Start: 02-21-2017 take 1 capsule by mo [facility] twice daily Acidophilus Probiotic 100 million cell-10 mg oral capsule 02/21/2017 take 1 capsule by oral route twice daily Lactobacillus Ac id-Pectin (Acidophilus/Pectin) capsule Take by mouth 0 Active 10 ml lidocaine hydrochloride 10 mg/ml injection (1 source) Antiarrhythmic, Amide Local Anesthetic Start: 06-08-2020 End: 06-08-2020 lidocaine PF 1 % injection Medicated Chest Rub (7 sources) Start: 05-17-2017 Medicated Ches t Rub topical ointment 05/17/2017 apply to affected area every 3-4 hours as needed for cough/congestion Start: 05-17-2017 Medicated Ches t Rub topical ointment 05/17/2017 apply to affected area every 3-4 hours as needed for cough/congestion MEDICATED CHEST RUB MISC (18 sources) Start: 05-17-2017 End: 05-17-2017 MEDICATED CHEST RUB MISC - 05/17/2017 Provider: MEDICATED CHEST RUB MISC (16 sources) Start: 05-17-2017 End: 05-02-2020 MEDICATED CHEST RUB MISC - 05/02/2020 Provider: Start: 05-17-2017 End: 05-17-2017 MEDICATED CHEST RUB MISC - 05/17/2017 Provider: Medicated Chest Rub topical ointment (1 source) Start: 05-17-2017 Medicated Ches t Rub topical ointment 05/17/2017 apply to affected area every 3-4 hours as needed for cough/congestion metroNIDAZOLE 0.0075 mg/mg vaginal gel (20 sources) Nitroimidazole Antimicrobial Start: 12-06-2016 End: 05-02-2020 metroNIDAZOLE 0.75% VA GEL 12/06/2016 - 05/02/2020 Provider: Start: 12-06-2016 metronidazole 0.75 % vaginal gel 12/06/2016 insert 1 applicatorful (37.5 mg) by vaginal route once daily at bedtime for 5 days MIRALAX 17 gram/dose MISC (18 sources) Start: 06-28-2018 End: 06-28-2018 MIRALAX 17 gram/dose MISC - 06/28/2018 Provider: MIRALAX 17 gram/dose MISC (16 sources) Start: 06-28-2018 End: 05-02-2020 MIRALAX 17 gram/dose MISC - 05/02/2020 Provider: Start: 06-28-2018 End: 06-28-2018 MIRALAX 17 gram/dose MISC - 06/28/2018 Provider: Mometasone-Formoterol (Dulera) 200-5 mcg/actuation Hfa Aerosol Inhaler (8 sources) Start: 03-26-2023 End: 03-28-2023 take 1 puff(s) by inhalation twice daily Mometasone-Formoterol (Dulera) 200-5 mcg/actuation Hfa Aerosol Inhaler Discontinued 2 PUFF INHALATION Twice daily March 26, 2023 12:00am March 28, 2023 9:17am Start: 09-11-2022 End: 03-12-2023 take 1 puff(s) by inhalation twice daily Mometasone-Formoterol (Dulera) 200-5 mcg/actuation Hfa Aerosol Inhaler Discontinued 2 PUFF INHALATION Twice daily September 11, 2022 12:00am March 12, 2023 5:55am Start: 09-11-2022 take 1 puff(s) by in halation twice daily Mometasone-Formoterol (Dulera) 200-5 mcg/actuation Hfa Aerosol Inhaler Active 2 PUFF INHALATION Twice daily September 11, 2022 12:00am Mucinex DM 30-600 MG Oral Tablet Extended Release 12 Hour (20 sources) Start: 02-12-2022 End: 03-20-2022 take 30-600 tablets by mouth every twelve hours Mucinex DM 30-600 MG Oral Tablet Extended Release 12 Hour 02/12/2022 - 03/20/2022 Provider: Start: 07-28-2021 End: 12-20-2021 take 30-600 tablets by mouth every twelve hours Mucinex DM 30-600 MG Oral Tablet Extended Release 12 Hour 07/28/2021 - 12/20/2021 Provider: Start: 07-28-2021 take 30-600 tablets by mouth every twelve hours Mucinex DM 30-600 MG Oral Tablet Extended Release 12 Hour 07/28/2021 Provider: naratriptan (20 sources) Serotonin-1b and Serotonin-1d Receptor Agonist Start: 06-28-2018 End: 05-02-2020 NARATRIPTAN 2.5 MG [facility] [place] 06/28/2018 - 05/02/2020 Provider: Start: 06-28-2018 End: 06-28-2018 NARATRIPTAN 2.5 MG [facility] [place] 06/04 - 06/28/2018 Provider: Start: 06-28-2018 End: 06-28-2018 NARATRIPTAN 2.5MG [facility] [place] 06/28 - 06/28/2018 Provider: End: 05-14-2017 naratriptan 2.5 mg oral tabl et 05/14/2017 take 1 tablet (2.5 mg) by oral route once may repeat after 4 hours prn End: 05-14-2017 naratriptan 2.5 mg oral tabl et 05/14/2017 take 1 tablet (2.5 mg) by oral route once may repeat after 4 hours prn Nicotine (20 sources) Cholinergic Nicotinic Agonist Start: 06-28-2018 End: 05-02-2020 NICOTINE 14 MG/24 HR MISC 06/28/2018 - 05/02/2020 Provider: Start: 06-28-2018 End: 05-02-2020 NICOTINE 7 MG/24 HR MISC 06/28/2018 - 05/02/2020 Provider: Start: 06-28-2018 End: 06-28-2018 NICOTINE 14 MG/24 HR MISC 06/28/2018 - 06/28/2018 Provider: Start: 06-28-2018 End: 06-28-2018 NICOTINE 7 MG/24 HR MISC 06/28/2018 - 06/28/2018 Provider: Start: 06-28-2018 End: 06-28-2018 NICOTINE 14MG/24 HR MISC 06/28/2018 - 06/28/2018 Provider: Start: 06-28-2018 End: 06-28-2018 NICOTINE 7MG/24 HR MISC 06/28/2018 - 06/28/2018 Provider: Start: 06-26-2016 apply 1 dose transde rmal route once daily at bedtime, then apply 1 dose transdermal route every twenty-four hours nicotine 7 mg/24 hr transdermal patch 24 hour 06/26/2016 apply 1 patch (7 mg) by transdermal route once daily and remove at bedtime Start: 06-26-2016 End: 05-02-2020 NICOTINE 7 MG/24 HR MISC 06/26/2016 - 05/02/2020 Provider: Start: 06-26-2016 End: 06-26-2016 NICOTINE 7 MG/24 HR MISC 06/26/2016 - 06/26/2016 Provider: Start: 06-26-2016 End: 06-26-2016 NICOTINE 7MG/24 HR MISC 06/26/2016 - 06/26/2016 Provider: Start: 06-12-2016 End: 07-23-2019 NICOTINE 14 MG/24 HR MISC 06/12/2016 - 07/23/2019 Provider: Start: 06-12-2016 End: 06-12-2016 NICOTINE 14 MG/24 HR MISC 06/12/2016 - 06/12/2016 Provider: Start: 06-12-2016 End: 06-12-2016 NICOTINE 14MG/24 HR MISC 06/12/2016 - 06/12/2016 Provider: End: 03-06-2016 nicotine 14 mg/24 hr transde rmal patch 24 hour 03/06/2016 apply 1 patch (14 mg) by transdermal route once daily prn Omeprazole (20 sources) Proton Pump Inhibitor Start: 06-22-2017 End: 05-02-2020 PRILOSEC 40 MG MISC 06/22/2017 - 05/02/2020 Provider: Start: 06-22-2017 End: 06-22-2017 PRILOSEC 40 MG MISC 06/22/19 18 - 06/22/2017 Provider: Start: 06-22-2017 End: 06-22-2017 PRILOSEC 40MG MISC 8 - 06/22/2017 Provider: Start: 06-11-2016 End: 07-23-2019 PRILOSEC 40 MG MISC 06/11/19 - 07/23/2019 Provider: Start: 06-11-2016 End: 06-11-2016 PRILOSEC 40 MG MISC 06/11/19 17 - 06/11/2016 Provider: Start: 06-11-2016 End: 06-11-2016 PRILOSEC 40MG MISC - 06/11/2016 Provider: Start: 06-08-2014 End: 05-02-2020 Omeprazole 40 MG OR CPDR - 05/02/2020 Provider: phenazopyridine hydrochlorid e 200 mg oral tablet (20 sources) Start: 12-08-2015 End: 07-23-2019 Pyridium 200 MG OR TABS 12/08/2015 - 07/23/2019 Provider: Start: 10-25-2015 End: 07-23-2019 Pyridium 100 MG OR TABS 10/02 - 07/23/2019 Provider: Polyethylene Glycols (20 sources) Start: 11-11-2019 End: 11-15-2020 Polyethylene Glycol 3350 Pow mateo 11/11/2019 - 11/15/2020 Provider: Karla Clark CNP Start: 11-11-2019 Polyethylene G lycol 3350 Powder 11/11/2019 Provider: Karla Clark CNP Start: 06-05-2019 Polyethylene G lycol 3350 Powder 06/05/2019 Provider: Polyethylene Gly col - as directed Active predniSONE 20 mg oral tablet (20 sources) Start: 11-19-2022 End: 02-28-2023 predniSONE 20 MG Oral Tablet 11/19/2022 - 02/28/2023 Provider: Karla Clark CNP Start: 03-20-2022 End: 08-27-2022 predniSONE 20 MG Oral Tablet 06/18/2022 - 08/27/2022 Provider: Karla Clark CNP Start: 07-28-2021 End: 11-03-2021 predniSONE 20 MG Oral Tablet 07/28/2021 - 11/03/2021 Provider: Karla Clark CNP Start: 03-31-2020 End: 05-06-2020 predniSONE 10 MG Oral Tablet 03/31/2020 - 05/06/2020 Provider: Karla Clark CNP Start: 03-05-2019 End: 04-23-2019 predniSONE 20 MG Oral Tablet 04/15/2019 - 04/23/2019 Provider: Brandy Kelley CNP Start: 12-22-2018 predniSONE 20M G Oral Tablet 12/22/2018 Provider: Karla Clark CNP Start: 05-22-2016 End: 07-23-2019 predniSONE 10 MG OR TABS - 07/23/2019 Provider: Start: 01-11-2016 End: 05-02-2020 predniSONE 20 MG OR TABS - 05/02/2020 Provider: Start: 01-11-2016 take 1 tablet by emiliano th once daily prednisone 20 mg oral tablet 08/21/2016 take 1 tablet (20 mg) by mouth daily x 7 days Start: 08-24-2012 take 3 tablets by [facility] once daily predniSONE 20 mg Tab 3 tab, Oral, Daily, # 12 tab(s), Refills(s) 0, 0, Print Requisition Start Date: 08/24/12 Status: Ordered promethazine hydrochloride 25 mg oral tablet (20 sources) Phenothiazine Start: 07-31-2018 End: 03-31-2020 Promethazine HCl 25MG Oral Tablet 07/31/2018 - 03/31/2020 Provider: Start: 03-13-2017 End: 05-02-2020 PROMETHAZINE 25 MG MISC 03/03 - 05/02/2020 Provider: Start: 03-13-2017 End: 03-13-2017 PROMETHAZINE 25 MG MISC 03/03 - 03/13/2017 Provider: Start: 03-13-2017 End: 03-13-2017 PROMETHAZINE 25MG MISC 03/13 - 03/13/2017 Provider: Start: 03-13-2017 take 1 tablet by emiliano th every six hours as needed for nausea promethazine 25 mg oral tablet 03/13/2017 take 1 tablet by oral route every 6 hours as needed for nausea/ migraine Start: 09-13-2015 End: 07-23-2019 PROMETHAZINE 25 MG MISC 09/01 - 07/23/2019 Provider: Start: 09-13-2015 End: 09-13-2015 PROMETHAZINE 25 MG MISC 09/01 - 09/13/2015 Provider: Start: 09-13-2015 End: 09-13-2015 PROMETHAZINE 25MG MISC 09/12 - 09/13/2015 Provider: Propranolol (20 sources) beta-Adrenergic Koki Start: 06-28-2018 End: 05-02-2020 PROPRANOLOL 160 MG MISC 06/28/2018 - 05/02/2020 Provider: Start: 06-28-2018 End: 06-28-2018 PROPRANOLOL 160 MG MIS 06/04 - 06/28/2018 Provider: Start: 06-28-2018 End: 06-28-2018 PROPRANOLOL 160MG MISC 06/28 - 06/28/2018 Provider: Start: 05-08-2018 take 1 capsule by mo [facility] once daily propranolol 60 mg oral capsule,extended release 24 hr 05/08/2018 take 1 capsule (60 mg) by oral route once daily Start: 05-08-2018 End: 05-02-2020 PROPRANOLOL 60 MG MISC 05/08 - 05/02/2020 Provider: Start: 05-08-2018 End: 05-08-2018 PROPRANOLOL 60 MG MISC 05/08 - 05/08/2018 Provider: Start: 05-08-2018 End: 05-08-2018 PROPRANOLOL 60MG MISC 2017 - 05/08/2018 Provider: Start: 04-23-2018 End: 05-08-2018 take 1 tablet by mouth twice daily propranolol 20 mg oral tablet 04/23/2018 05/08/2018 take 1 tablet (20 mg) by oral route twice daily change to ER Start: 04-23-2018 End: 05-02-2020 [facility] 04/23 - 05/02/2020 Provider: Start: 04-23-2018 End: 04-23-2018 PROPRANOLOL 20 MG MISC 04/23 - 04/23/2018 Provider: Start: 04-23-2018 End: 04-23-2018 PROPRANOLOL 20MG MISC 2017 - 04/23/2018 Provider: Start: 05-14-2017 End: 05-02-2020 PROPRANOLOL 20 MG MISC 05/14 - 05/02/2020 Provider: Start: 05-14-2017 End: 05-14-2017 PROPRANOLOL 20 MG MISC 05/14 - 05/14/2017 Provider: Start: 05-14-2017 End: 05-14-2017 PROPRANOLOL 20MG MISC 2016 - 05/14/2017 Provider: Start: 05-14-2017 take 1 tablet by emiliano th twice daily propranolol 20 mg oral tablet 05/14/2017 take 1 tablet (20 mg) by oral route twice daily Start: 02-28-2016 End: 07-23-2019 PROPRANOLOL 80 MG MISC 02/27 - 07/23/2019 Provider: Start: 02-28-2016 End: 02-28-2016 PROPRANOLOL 80 MG MIS 02/27 - 02/28/2016 Provider: Start: 02-28-2016 End: 02-28-2016 PROPRANOLOL 80MG MIS 2015 - 02/28/2016 Provider: Start: 02-21-2016 End: 07-23-2019 PROPRANOLOL 80 MG MIS 02/20 - 07/23/2019 Provider: Start: 02-21-2016 End: 02-21-2016 PROPRANOLOL 80 MG MISC 02/20 - 02/21/2016 Provider: Start: 02-21-2016 End: 02-21-2016 PROPRANOLOL 80MG MIS 2015 - 02/21/2016 Provider: Start: 02-21-2016 End: 03-05-2017 take 1 capsule by mouth once daily propranolol 80 mg oral capsule,extended release 24 hr 02/28/2016 03/05/2017 take 1 capsule (80 mg) by oral route once daily Start: 09-22-2015 End: 07-23-2019 PROPRANOLOL 80 MG MISC 09/21 - 07/23/2019 Provider: Start: 09-22-2015 End: 09-22-2015 [facility] 80 [facility] 09/21 - 09/22/2015 Provider: Start: 09-22-2015 End: 09-22-2015 PROPRANOLOL 80MG MISC 2015 - 09/22/2015 Provider: End: 07-30-2017 take 1 capsule by mouth once daily propranolol 160 mg oral capsule,extended release 24 hr 07/30/2017 take 1 capsule (160 mg) by oral route once daily pseudoePHEDrine hydrochloride 30 mg oral tablet (20 sources) alpha-Adrenergic Agonist Start: 01-19-2016 End: 01-11-2016 take 1 tablet by mouth three times daily as needed for congestion pseudoephedrine (DECONGESTANT) 30 MG tablet 01/19/2016 01/11/2016 Take 1 tablet by mouth 3 times daily as needed for Congestion. Start: 01-19-2016 End: 01-11-2016 take 1 tablet by mouth three times daily as needed for congestion pseudoephedrine (DECONGESTANT) 30 MG tablet 01/19/2016 01/11/2016 Take 1 tablet by mouth 3 times daily as needed for Congestion. Start: 01-19-2016 End: 01-11-2016 take 1 tablet by mouth three times daily as needed for congestion pseudoephedrine (DECONGESTANT) 30 MG tablet 01/19/2016 01/11/2016 Take 1 tablet by mouth 3 times daily as needed for Congestion. Start: 01-19-2016 End: 01-11-2016 take 1 tablet by mouth three times daily as needed for congestion pseudoephedrine (DECONGESTANT) 30 MG tablet 01/19/2016 01/11/2016 Take 1 tablet by mouth 3 times daily as needed for Congestion. Start: 01-19-2016 End: 01-11-2016 take 1 tablet by mouth three times daily as needed for congestion pseudoephedrine (DECONGESTANT) 30 MG tablet 01/19/2016 01/11/2016 Take 1 tablet by mouth 3 times daily as needed for Congestion. Start: 01-19-2016 End: 01-11-2016 take 1 tablet by mouth three times daily as needed for congestion pseudoephedrine (DECONGESTANT) 30 MG tablet 01/19/2016 01/11/2016 Take 1 tablet by mouth 3 times daily as needed for Congestion. Start: 01-19-2016 End: 01-11-2016 take 1 tablet by mouth three times daily as needed for congestion pseudoephedrine (DECONGESTANT) 30 MG tablet 01/19/2016 01/11/2016 Take 1 tablet by mouth 3 times daily as needed for Congestion. Start: 01-19-2016 End: 01-11-2016 take 1 tablet by mouth three times daily as needed for congestion pseudoephedrine (DECONGESTANT) 30 MG tablet 01/19/2016 01/11/2016 Take 1 tablet by mouth 3 times daily as needed for Congestion. Start: 01-19-2016 End: 07-23-2019 PSEUDOEPHEDRINE (DECONGESTAN T MISC 01/19/2016 - 07/23/2019 Provider: Start: 01-19-2016 End: 01-19-2016 PSEUDOEPHEDRINE (DECONGESTAN T MISC 01/19/2016 - 01/19/2016 Provider: raNITIdine 150 mg oral tablet (20 sources) Histamine-2 Receptor Antagonist Start: 07-23-2019 End: 09-22-2019 raNITIdine HCl 150 MG Oral Tablet 07/23/2019 - 09/22/2019 Provider: Karla Clark CNP RISPERDAL CONSTA 37.5 MG/2 ML MISC (17 sources) Start: 06-28-2018 End: 06-28-2018 RISPERDAL CONSTA 37.5 MG/2 ML MISC 06/28/2018 - 06/28/2018 Provider: RISPERDAL CONSTA 37.5 MG/2 ML MISC (14 sources) Start: 06-28-2018 End: 05-02-2020 RISPERDAL CONSTA 37.5 MG/2 ML MISC 06/28/2018 - 05/02/2020 Provider: RISPERDAL CONSTA 37.5MG/2 ML MISC (1 source) Start: 06-28-2018 End: 06-28-2018 RISPERDAL CONSTA 37.5MG/2 ML MISC 06/28/2018 - 06/28/2018 Provider: RISPERDAL CONSTA 37.5MG/2 ML MISC (2 sources) Start: 06-28-2018 End: 06-28-2018 RISPERDAL CONSTA 37.5MG/2 ML MISC 06/28/2018 - 06/28/2018 Provider: shower chair (8 sources) Start: 08-01-2016 shower chair use for generalized weakness/ dizziness Start: 08-01-2016 shower chair use for generalized weakness/ dizziness SHOWER CHAIR MISC (20 sources) Start: 08-01-2016 End: 08-01-2016 SHOWER CHAIR MISC 08/01/2016 - 08/01/2016 Provider: Start: 02-21-2016 End: 07-23-2019 SHOWER CHAIR MISC 02/21/2016 - 07/23/2019 Provider: Start: 02-21-2016 End: 02-21-2016 SHOWER CHAIR MISC 02/21/2016 - 02/21/2016 Provider: SHOWER CHAIR MISC (20 sources) Start: 08-01-2016 End: 05-02-2020 SHOWER CHAIR MISC 08/01/2016 - 05/02/2020 Provider: Start: 08-01-2016 End: 08-01-2016 SHOWER CHAIR MISC 08/01/2016 - 08/01/2016 Provider: Start: 02-21-2016 End: 07-23-2019 SHOWER CHAIR MISC 02/21/2016 - 07/23/2019 Provider: Start: 02-21-2016 End: 02-21-2016 SHOWER CHAIR MISC 02/21/2016 - 02/21/2016 Provider: Spacer/Aero-Holding Chambers Device (15 sources) Start: 04-23-2019 End: 05-23-2019 Spacer/Aero-Holding Chambers Device 04/23/2019 - 05/23/2019 Provider: Karla Clark CNP Spacer/Aero-Holding Chambers Device (14 sources) Start: 04-23-2019 End: 05-23-2019 Spacer/Aero-Holding Chambers Device 04/23/2019 - 05/23/2019 Provider: Karla Clark CNP SUMAtriptan 50 mg oral tablet (20 sources) Serotonin-1b and Serotonin-1d Receptor Agonist Start: 09-08-2015 End: 05-02-2020 Imitrex 50 MG OR TABS 09/13/2015 - 07/23/2019 Provider: SYMBICORT 160-4.5 MCG/ACTUAT MISC (17 sources) Start: 06-12-2016 End: 07-23-2019 SYMBICORT 160-4.5 MCG/ACTUAT MISC 06/12/2016 - 07/23/2019 Provider: Start: 06-12-2016 End: 06-12-2016 SYMBICORT 160-4.5 MCG/ACTUAT MISC 06/12/2016 - 06/12/2016 Provider: SYMBICORT 160-4.5 MCG/ACTUAT MISC (14 sources) Start: 06-12-2016 End: 07-23-2019 SYMBICORT 160-4.5 MCG/ACTUAT MISC 06/12/2016 - 07/23/2019 Provider: traMADol (20 sources) Opioid Agonist Start: 06-28-2018 End: 05-02-2020 TRAMADOL 50 mg MISC 06/28/2018 - 05/02/2020 Provider: Start: 06-28-2018 End: 06-28-2018 TRAMADOL 50 mg MISC 06/28/19 19 - 06/28/2018 Provider: take 1 tablet by eimliano twice daily as needed tramadol 50 mg oral tablet take 1 tablet (50 mg) by oral route bid prn TUDORZA PRESSAIR 400 MCG/ACT UAT MISC (20 sources) Start: 06-28-2018 End: 06-28-2018 TUDORZA PRESSAIR 400 MCG/ACT UAT MISC 06/28/2018 - 06/28/2018 Provider: TUDORZA PRESSAIR 400 MCG/ACT UAT MISC (20 sources) Start: 06-28-2018 End: 05-02-2020 TUDORZA PRESSAIR 400 MCG/ACT UAT MISC 06/28/2018 - 05/02/2020 Provider: TUDORZA PRESSAIR 400MCG/ACTU AT MISC (2 sources) Start: 06-28-2018 End: 06-28-2018 TUDORZA PRESSAIR 400MCG/ACTU AT MISC 06/28/2018 - 06/28/2018 Provider: TUDORZA PRESSAIR 400MCG/ACTU AT MISC (4 sources) Start: 06-28-2018 End: 06-28-2018 TUDORZA PRESSAIR 400MCG/ACTU AT MISC 06/28/2018 - 06/28/2018 Provider: TUSSIN DM 10-100 MG/5 ML MIS C (17 sources) Start: 09-22-2015 End: 07-23-2019 TUSSIN DM 10-100 MG/5 ML MIS C 09/22/2015 - 07/23/2019 Provider: Start: 09-22-2015 End: 09-22-2015 TUSSIN DM 10-100 MG/5 ML MIS C 09/22/2015 - 09/22/2015 Provider: TUSSIN DM 10-100 MG/5 ML MIS C (14 sources) Start: 09-22-2015 End: 07-23-2019 TUSSIN DM 10-100 MG/5 ML MIS C 09/22/2015 - 07/23/2019 Provider: TUSSIN DM 10-100MG/5 ML MISC (1 source) Start: 09-22-2015 End: 09-22-2015 TUSSIN DM 10-100MG/5 ML MISC 09/22/2015 - 09/22/2015 Provider: JENN DM 10-100MG/5 ML MISC (2 sources) Start: 09-22-2015 End: 09-22-2015 TUSSIN DM 10-100MG/5 ML MISC 09/22/2015 - 09/22/2015 Provider: TYLENOL ARTHRITIS PAIN 650 M G MISC (20 sources) Start: 07-30-2017 End: 07-30-2017 TYLENOL ARTHRITIS PAIN 650 M G MISC 07/30/2017 - 07/30/2017 Provider: Start: 06-26-2016 End: 06-26-2016 TYLENOL ARTHRITIS PAIN 650 M G MISC 06/26/2016 - 06/26/2016 Provider: Start: 02-13-2016 End: 07-23-2019 TYLENOL ARTHRITIS PAIN 650 M G MISC 02/13/2016 - 07/23/2019 Provider: Start: 02-13-2016 End: 02-13-2016 TYLENOL ARTHRITIS PAIN 650 M G MISC 02/13/2016 - 02/13/2016 Provider: TYLENOL ARTHRITIS PAIN 650 M G MISC (20 sources) Start: 07-30-2017 End: 05-02-2020 TYLENOL ARTHRITIS PAIN 650 M G MISC 07/30/2017 - 05/02/2020 Provider: Start: 06-26-2016 End: 05-02-2020 TYLENOL ARTHRITIS PAIN 650 M G MISC 06/26/2016 - 05/02/2020 Provider: Start: 02-13-2016 End: 07-23-2019 TYLENOL ARTHRITIS PAIN 650 M G MISC 02/13/2016 - 07/23/2019 Provider: TYLENOL ARTHRITIS PAIN 650MG MISC (3 sources) Start: 07-30-2017 End: 07-30-2017 TYLENOL ARTHRITIS PAIN 650MG MISC 07/30/2017 - 07/30/2017 Provider: Start: 06-26-2016 End: 06-26-2016 TYLENOL ARTHRITIS PAIN 650MG MISC 06/26/2016 - 06/26/2016 Provider: Start: 02-13-2016 End: 02-13-2016 TYLENOL ARTHRITIS PAIN 650MG MISC 02/13/2016 - 02/13/2016 Provider: TYLENOL ARTHRITIS PAIN 650MG MISC (6 sources) Start: 07-30-2017 End: 07-30-2017 TYLENOL ARTHRITIS PAIN 650MG MISC 07/30/2017 - 07/30/2017 Provider: Start: 06-26-2016 End: 06-26-2016 TYLENOL ARTHRITIS PAIN 650MG MISC 06/26/2016 - 06/26/2016 Provider: Start: 02-13-2016 End: 02-13-2016 TYLENOL ARTHRITIS PAIN 650MG MISC 02/13/2016 - 02/13/2016 Provider: VENTOLIN HFA 90 MCG/ACTUAT M ISC (20 sources) Start: 05-22-2017 End: 05-22-2017 VENTOLIN HFA 90 MCG/ACTUAT M ISC 05/22/2017 - 05/22/2017 Provider: Start: 01-05-2016 End: 07-23-2019 VENTOLIN HFA 90 MCG/ACTUAT M ISC 01/05/2016 - 07/23/2019 Provider: Start: 01-05-2016 End: 01-05-2016 VENTOLIN HFA 90 MCG/ACTUAT M ISC 01/05/2016 - 01/05/2016 Provider: VENTOLIN HFA 90 MCG/ACTUAT M ISC (20 sources) Start: 05-22-2017 End: 05-02-2020 VENTOLIN HFA 90 MCG/ACTUAT M ISC 05/22/2017 - 05/02/2020 Provider: Start: 01-05-2016 End: 07-23-2019 VENTOLIN HFA 90 MCG/ACTUAT M ISC 01/05/2016 - 07/23/2019 Provider: Problems Active Problems Problem Classification Problem Date Documented Date Episodic/Chronic Asthma (20 sources) Asthma; Translations: [Asthma, unspecified type, unspecified] Onset: 07-01-2018 06-03-2018 Chronic Asthma (2 sources) Asthma; Translations: [Respiratory system agent (substance)] Onset: 03-31-2019 Chronic obstructive pulmonary disease and bronchiectasis (20 sources) Chronic airway obstruction, not elsewhere classified; Translations: [Chronic obstructive lung disease] Onset: 05-04-2014 05-04-2014 Chronic Coronary atherosclerosis and other heart disease (2 sources) History of myocardial infarction; Translations: [Old myocardial infarction] Onset: 03-06-2022 Chronic Diabetes mellitus without complication (1 source) Diabetes mellitus 08-14-2013 Chronic Diabetes mellitus without complication (1 source) Prediabetes; Translations: [Prediabetes] Onset: 05-30-2023 Episodic E Codes: Fall (1 source) Unspecified fall, initial encounter; Translations: [UNSPECIFIED FALL INITIAL ENCOUNTER] Onset: 09-17-2022 Episodic Esophageal disorders (1 source) Gastro-esophageal reflux disease without esophagitis; Translations: [Gastroesophageal reflux disease, unspecified whether esophagitis present] Onset: 05-30-2023 Chronic Essential hypertension (12 sources) Unspecified essential hypertension; Translations: [Hypertensive disorder] Onset: 09-22-2015 03-13-2023 Chronic Genitourinary symptoms and ill-defined conditions (1 source) Dysuria; Translations: [Dysuria] Onset: 03-21-2023 Episodic Headache, including migraine (20 sources) Migraine, unspecified, without mention of intractable migraine without mention of status migrainosus; Translations: [Migraine] Onset: 09-08-2015 07-09-2016 Chronic Mood disorders (20 sources) Bipolar disorder; Translations: [Depressive disorder] Onset: 05-04-2014 05-04-2014 Chronic Mood disorders (1 source) Major depressive disorder, single episode, unspecified; Translations: [Major depressive disorder, single episode, unspecified] Onset: 07-01-2018 Neoplasms of unspecified nature or uncertain behavior (8 sources) Neoplasm of uncertain behavior of skin; Translations: [Neoplastic disease] Onset: 05-14-2017 07-16-2023 Episodic Nonmalignant breast conditions (1 source) Mammary duct ectasia; 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, 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 Nonmalignant breast conditions (2 sources) Lesion of breast; Translations: [Breast lump] Episodic Other aftercare (1 source) Other buttermaker continuous churn (current) drug therapy; Translations: [OTH CRIMINAL JUSTICE INSTRUCTOR CURRENT DRUG THERAPY] Onset: 09-17-2022 Episodic Other connective tissue disease (3 sources) Pain in right arm; Translations: [PAIN IN RIGHT ARM] Onset: 09-06-2022 Episodic Other connective tissue disease (1 source) Pain in right foot; Translations: [Right foot pain] Other ear and sense organ disorders (1 source) Otalgia; Translations: [Otalgia, unspecified] Onset: 06-18-2022 Episodic Other endocrine disorders (1 source) Hyperprolactinemia; Translations: [Hyperprolactinemia (HCC)] Chronic Other lower respiratory disease (6 sources) Other symptoms involving respiratory system and chest Onset: 05-22-2016 Episodic Other nervous system disorders (6 sources) Carpal tunnel syndrome Onset: 06-26-2016 Chronic Other nervous system disorders (1 source) Other acute postprocedural pain; Translations: [Postoperative pain] Onset: 06-18-2023 Episodic Other non-traumatic joint disorders (1 source) Pain in right shoulder Episodic Other nutritional; endocrine; and metabolic disorders (20 sources) Overweight; Translations: [Overweight] Onset: 09-04-2018 Chronic Other nutritional; endocrine; and metabolic disorders (20 sources) Finding of body mass index; Translations: [Body mass index (observable entity)] Onset: 09-04-2018 Episodic Other nutritional; endocrine; and metabolic disorders (10 sources) Overweight; Translations: [Overweight] Onset: 09-04-2018 Episodic Other upper respiratory disease (20 sources) Allergic rhinitis, cause unspecified Onset: 09-22-2015 Chronic Other upper respiratory infections (20 sources) Unspecified sinusitis (chronic) Onset: 09-22-2015 Chronic Residual codes; unclassified (9 sources) Insomnia with sleep apnea; Translations: [Insomnia with sleep apnea, unspecified] Onset: 09-04-2018 Chronic Residual codes; unclassified (20 sources) Tobacco user; Translations: [Tobacco abuse] Onset: 05-04-2014 05-04-2014 Chronic Residual codes; unclassified (17 sources) Tobacco use; Translations: [Tobacco user] Onset: 07-01-2018 06-03-2018 Episodic Residual codes; unclassified (1 source) Past history of procedure; Translations: [Other specified postprocedural states] Episodic Residual codes; unclassified (17 sources) Tobacco user; Translations: [Tobacco use] Onset: 05-04-2014 05-04-2014 Episodic Residual codes; unclassified (3 sources) Other specified postprocedural states Episodic Schizophrenia and other psychotic disorders (20 sources) Schizoaffective disorder; Translations: [Schizoaffective Disorder] Onset: 03-31-2019 Chronic Sprains and strains (3 sources) Strain of muscle(s) and tendon(s) of the rotator cuff of right shoulder, subsequent encounter Episodic Substance-related disorders (20 sources) Tobacco dependence syndrome; Translations: [Tobacco use disorder] Onset: 01-11-2016 Chronic Thyroid disorders (9 sources) Non-toxic multinodular goiter; Translations: [Nontoxic multinodular goiter] Onset: 05-30-2023 Chronic Unclassified (6 sources) Body Mass Index 30.0-30.9, adult Onset: 12-19-2017 Chronic Unclassified (2 sources) Parkinson's disease; Translations: [Parkinson's disease] 03-13-2023 Chronic Unclassified (20 sources) Body Mass Index 29.0-29.9, adult; Translations: [Body Mass Index 28.0-28.9, adult] Onset: 01-01-2017 Episodic Unclassified (20 sources) Finding of body mass index; Translations: [Body Mass Index] Onset: 09-04-2018 Unclassified (2 sources) HIV screening; Translations: [Visit For: Screening Exam For Human Immunodeficiency Virus] Onset: 05-06-2020 Unclassified (1 source) Acute candidiasis of vulva and vagina; Translations: [Acute candidiasis of vulva and vagina] Onset: 01-30-2023 Unclassified (1 source) Schizoaffective disorder, unspecified; Translations: [Schizoaffective disorder, unspecified] Onset: 03-26-2023 Unclassified (1 source) Other displaced fracture of upper end of right humerus, subsequent encounter for fracture with routine healing; Translations: [Other displaced fracture of upper end of right humerus, subsequent encounter for fracture with routine healing] Onset: 10-31-2022 Unclassified (1 source) Displaced fracture of greater tuberosity of right humerus, initial encounter for closed fracture; Translations: [Displaced fracture of greater tuberosity of right humerus, initial encounter for closed fracture] Onset: 09-13-2022 Unclassified (1 source) Encounter for preprocedural laboratory examination; Translations: [Encounter for preprocedural laboratory examination] Onset: 09-11-2022 Unclassified (1 source) Pain in right shoulder; Translations: [Pain in right shoulder] Onset: 09-10-2022 Past or Other Problems Problem Classification Problem Date Documented Da te Episodic/Chronic Abdominal pain (11 sources) Flank pain; Translations: [Unspecified abdominal pain] Onset: 3 03-13-2023 Episodic Acute and unspecified renal failure (3 sources) Acute renal failure syndrome; Translations: [Acute kidney failure, unspecified] Onset: 3 03-26-2023 Episodic Acute bronchitis (6 sources) Acute bronchitis; Translations: [Acute bronchitis, unspecified] Onset: 3 11-19-2022 Episodic Chronic obstructive pulmonary disease and bronchiectasis (20 sources) Chronic obstructive pulmonary disease and bronchiectasis; Translations: [Fagerstrom Score] Onset: 9 Conditions associated with dizziness or vertigo (6 sources) Dizziness and giddiness Onset: 6 Episodic Fracture of upper limb (13 sources) Other displaced fracture of upper end of right humerus, initial encounter for closed fracture; Translations: [Fracture of upper end of humerus] Onset: 3 Episodic Headache, including migraine (6 sources) Headache Onset: 7 Episodic Immunizations and screening for infectious disease (20 sources) Screening examination for pulmonary tuberculosis; Translations: [Need for prophylactic vaccination and inoculation against influenza] Onset: 6 Episodic Inflammatory diseases of female pelvic organs (12 sources) Vaginitis and vulvovaginitis, unspecified Onset: 7 Episodic Malaise and fatigue (18 sources) Other malaise and fatigue Onset: 6 Episodic Medical examination/evaluation (3 sources) Routine general medical examination at a health care facility; Translations: [Laboratory examination, unspecified] Onset: 7 Episodic Mycoses (20 sources) Candidiasis of other urogenital sites; Translations: [Candidiasis of unspecified site] Onset: 6 Episodic Nausea and vomiting (3 sources) Nausea and vomiting; Translations: [Nausea with vomiting, unspecified] Onset: 3 03-26-2023 Episodic Nonspecific chest pain (20 sources) Atypical chest pain; Translations: [Chest pain] Onset: 4 Resolved: 3 05-04-2014 Episodic Other aftercare (1 source) Encounter for therapeutic drug level monitoring; Translations: [Encounter for therapeutic drug level monitoring] Onset: 3 Episodic Other connective tissue disease (7 sources) Pain in right lower limb; Translations: [Pain in limb] Onset: 3 Episodic Other connective tissue disease (6 sources) Pain in upper arm; Translations: [Pain in right upper arm] Onset: 3 11-19-2022 Episodic Other connective tissue disease (3 sources) Pain in right arm; Translations: [Upper arm part (body structure)] Onset: 3 Episodic Other ear and sense organ disorders (6 sources) Pain of ear structure; Translations: [Otalgia, unspecified] Onset: 3 Episodic Other female genital disorders (12 sources) Leukorrhea, not specified as infective Onset: 6 Episodic Other gastrointestinal disorders (9 sources) Dysphagia; Translations: [Dysphagia, unspecified] Onset: 9 Episodic Other lower respiratory disease (19 sources) Cough; Translations: [Other symptoms involving respiratory system and chest] Onset: 6 Episodic Other lower respiratory disease (15 sources) Cough; Translations: [Cough] Onset: 2 Episodic Other nervous system disorders (8 sources) Personal history of benign neoplasm of the brain; Translations: [Abnormality of gait] Onset: 7 Episodic Other nervous system disorders (5 sources) Disturbance of skin sensation Onset: 8 Episodic Other nervous system disorders (5 sources) Abnormality of gait Onset: 7 Episodic Other non-traumatic joint disorders (19 sources) Pain in joint, lower leg; Translations: [Pain in joint, ankle and foot] Onset: 7 Episodic Other non-traumatic joint disorders (5 sources) Pain in joint, ankle and foot Onset: 8 Episodic Other non-traumatic joint disorders (6 sources) Arthropathy of knee joint; Translations: [Pain] Onset: 3 Episodic Other nutritional; endocrine; and metabolic disorders (2 sources) Body Mass Index 28.0-28.9, adult Onset: 7 Episodic Other screening for suspected conditions (not mental disorders or infectious disease) (20 sources) Electrocardiogram abnormal; Translations: [Other screening mammogram] Onset: 4 Resolved: 3 05-04-2014 Episodic Other upper respiratory infections (14 sources) Acute pharyngitis; Translations: [Pharyngitis Acute] Onset: 9 Episodic Unclassified (18 sources) Patient encounter status; Translations: [Colon cancer screening] Onset: 4 Resolved: 8 03-31-2018 Unclassified (13 sources) Intervention & Counseling Cessation of Tobacco Use 3-10 Min.; Translations: [Intervention & Counseling Cessation of Tobacco Use 3-10 Min.] Onset: 9 Unclassified (9 sources) Patient status finding; Translations: [Injury assessment] Onset: 9 Unclassified (1 source) Bipolar (qualifier value) 10-12-2009 Urinary tract infections (12 sources) Urinary tract infection, site not specified Onset: 6 Episodic Results Test Name Value Interpretation Reference Range Facility No Panel Informationon 07-16 Type of biopsy: tangential Informed consent: discussed and consent obtained Informed consent comment: The risks and benefits of the biopsy were discussed. Risks include but are not limited to bleeding, infection, scarring, pain, and nerve damage. An opportunity to ask questions prior to the procedure was permitted and all questions were answered. Patient was prepped and draped in usual sterile fashion: area cleansed with alcohol. Anesthesia: the lesion was anesthetized in a standard fashion Anesthetic: 1% lidocaine w/ epinephrine 1-100,000 buffered w/ 8.4% NaHCO3 Instrument used: DermaBlade Hemostasis achieved with: electrodesiccation Outcome: patient tolerated procedure well Outcome comment: The specimen was placed in a prelabeled formalin container to be sent for pathology Post-procedure details: sterile dressing applied and wound care instructions given Post-procedure details comment: Emphasized need to contact clinic for any signs of infection, uncontrollable bleeding, or complications. Dressing type: bandage Additional details: Photo taken Amount of lidocaine used: 0.3 cc [facility] Office Visit (OTOLMN ) -------- GAIL ALMEIDA ([id number]) 1955 F Date Time Provider Department 06/28/23 3:45 PM YANDEL DANIEL During your visit today, we recorded the following information about you: Fabienne Deleon OCCA 06/28/2023 3:36 PM Signed Tobacco Use: .25 packs/day, for 40 years. Types: Cigarettes Was smoking cessation packet given? Patient Declined Was a referral initiated?Patient declined. Yandel Daniel MD 06/28/2023 3:37 PM Signed [facility] Note CC: Post op of thyroidectomy performed on 06/18/2023 HPI: Patient is a 67 year old female, current smoker(0.25 ppd 10py), with a history of schizoaffective disorder, bipolar disorder, COPD. Ms. Almeida presented with thyroid goiter in the context of long-standing lithium use for management of psychiatric disorders, at the first [facility]. Thyroidectomy was offered. As such, patient underwent thyroidectomy performed on 06/18/2023 Patient presents for post-operative visit. Current Outpatient Medications Medication Sig Dispense Refill acetaminophen (TYLENOL) 500 mg tablet Take 2 tablets by ORAL/FEEDING TUBE route every 6 hours for 5 days, THEN 1 tablet every 6 hours for 5 days. 60 tablet 0 calcium carbonate (OS-RL 500) 500 mg calcium (1,250 mg) tablet Take 1 tablet by mouth once daily. 30 tablet 0 levothyroxine (SYNTHROID) 112 mcg tablet Take 1 tablet by mouth daily before breakfast. 90 tablet 0 QUEtiapine (SEROQUEL) 25 mg tablet Take 25 mg by mouth two times a day. Take 1/2 tablet twice daily acidophilus-pectin, citrus 100 million cell-10 mg cap Take by mouth. Fluticasone Furoate 27.5 mcg/actuation nasal spray Use 2 Sprays in each nostril once daily. mecobalamin (B12 ACTIVE ORAL) Take 800 mcg by mouth once daily. amantadine HCl (SYMMETREL) 100 mg capsule Take 100 mg by mouth two times a day. benzonatate (TESSALON PERLE) 100 mg capsule Take 100 mg by mouth once daily. benztropine (COGENTIN) 0.5 mg tablet Take 0.5 mg by mouth two times a day. cloNIDine HCl (CATAPRES) 0.1 mg tablet Take 0.1 mg by mouth once daily. docusate sodium (COLACE) 100 mg capsule Take 100 mg by mouth once daily. folic acid 800 mcg tablet Take 800 mcg by mouth once daily. lithium carbonate (ESKALITH) 150 mg capsule Take 150 mg by mouth two times a day with meals. loratadine (CLARITIN) 10 mg tablet Take 10 mg by mouth once daily. meloxicam (MOBIC) 15 mg tablet Take 15 mg by mouth once daily. QUEtiapine XR (SEROQUEL XR) 400 mg 24 hr tablet Take 400 mg by mouth daily at bedtime. RISPERDAL CONSTA 25 mg/2 mL injection Inject 25 mg intramuscularly every 2 weeks. topiramate (TOPAMAX) 25 mg tablet Take 25 mg by mouth once daily. famotidine (PEPCID) 20 mg tablet Take 20 mg by mouth two times a day. albuterol HFA (PROVENTIL HFA, VENTOLIN HFA) 90 mcg/actuation inhaler Inhale 1 Puff as instructed as needed. OYSTER SHELL CALCIUM-VITAMIN D 500 mg-5 mcg (200 unit) per tablet WIXELA INHUB 250-50 mcg/dose inhaler Inhale 1 Puff as instructed two times a day. MUCUS DM 30-600 mg per tablet Take 1 tablet by mouth every 12 hours as needed. ghlnoz-zowgdkhx-camjamq (ENZADYNE) 9,000-112,500- 112,500 unit capsule Take 1 capsule by mouth daily with food. nystatin (MYCOSTATIN) cream Apply to affected area two times a day. OLANZapine (ZYPREXA) 5 mg tablet Take 5 mg by mouth every 12 hours as needed. No current facility-administered medications for this visit. EXAM: Constitutional - General Appearance: well developed, well nourished, without obvious deformities Communication: speaks with a normal voice without hoarseness Head AND Face - Overall: no obvious scars, lesions or masses Facial strength: normal and equal bilaterally Oral Cavity and oropharynx: mucosa, hard and soft palates, tongue, tonsil area, posterior pharyngeal wall, lips and gums are without lesions Neck: appears symmetric, and on palpation is without masses or lymphadenopathy Neuro: CN III - CN XII grossly intact PATHOLOGY: 06/18/2023 - Surgical Pathology FINAL DIAGNOSIS A,B. 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 - No parathyroid glands or lymph nodes were identified. - Negative for malignancy. ASSESSMENT: Gail Almeida is a 67 year old female with a history of schizoaffective disorder, bipolar disorder, COPD, thyroid goiter in the context of long-standing lithium use for management of psychiatric disorders Surgical pathology demonstrated follicular thyroid hyperplasia associated with secondary changes including focal hemorrhage, and calcifications. Patient is overall healing very well. Discussed with patient that her symptoms should continue to improve with time. Post-op wound care instructions rediscussed. Reviewed surgical pathology with the patient. We will continu (more content not included)... Normal [facility] CNPNon 06-24-2023 CNPN Telephone (HNQ) -------- GAIL ALMEIDA ([id number]) 1955 F Date Time Provider Department 06/24/23 YANDEL DANIEL HNTito During your visit today, we recorded the following information about you: Nena Rodriguez 06/24/2023 11:32 AM Signed Person Calling: Susannah - [facility] Reason for Call: Susannah called in to see if there is alternative product/brand for smizpp-hanqefog-whgsojk 9,000-112,500- 112,500 unit cap 1 capsule (ENZADYNE) that Dr. Daniel would be comfortable prescribing. The current one sent to the pharmacy, they do not have Pt Phone #: [phone] Pharmacy Name and # : [facility] [place] [address] - [address] [facility] [phone] Pt last seen: 06/18/2023 Amy Diaz, RN 06/24/2023 3:[address] Daniel does not manage this medication. Spoke with pharmacy. They will contact another provider. Allergies As of Date: 06/24/2023 Noted Allergy Reaction ASPIRIN 04/11/2023 14 - Other: See Comments Comments: Shock BARBITUATES (BARBITURATES) 04/11/2023 16 - Unknown CODEINE 04/11/2023 16 - Unknown DEMEROL (MEPERIDINE) 04/11/2023 16 - Unknown FLUOXETINE 04/11/2023 16 - Unknown IBUPROFEN 04/11/2023 16 - Unknown PENICILLINS 04/11/2023 14 - Other: See Comments Comments: Turns blue SULFA (SULFONAMIDE ANTIBIOTICS) 04/11/2023 5 - Intolerance Comments: bad taste/odor Date Reviewed: 06/22/2023 Reviewed by: Ravinder Mejias RN - Fully Assessed Reason for Visit: Medication Problem [65] Prescriptions as of 06/24/2023 - oxyCODONE IR (ROXICODONE) 5 mg immediate release tablet Take 1 tablet by mouth every 8 hours as needed for pain for up to 5 days. - acetaminophen (TYLENOL) 500 mg tablet Take 2 tablets by ORAL/FEEDING TUBE route every 6 hours for 5 days, THEN 1 tablet every 6 hours for 5 days. - calcium carbonate (OS-RL 500) 500 mg calcium (1,250 mg) tablet Take 1 tablet by mouth once daily. - levothyroxine (SYNTHROID) 112 mcg tablet Take 1 tablet by mouth daily before breakfast. - QUEtiapine (SEROQUEL) 25 mg tablet Take 25 mg by mouth two times a day. Take 1/2 tablet twice daily - acidophilus-pectin, citrus 100 million cell-10 mg cap Take by mouth. - Fluticasone Furoate 27.5 mcg/actuation nasal spray Use 2 Sprays in each nostril once daily. - mecobalamin (B12 ACTIVE ORAL) Take 800 mcg by mouth once daily. - amantadine HCl (SYMMETREL) 100 mg capsule Take 100 mg by mouth two times a day. - benzonatate (TESSALON PERLE) 100 mg capsule Take 100 mg by mouth once daily. - benztropine (COGENTIN) 0.5 mg tablet Take 0.5 mg by mouth two times a day. - cloNIDine HCl (CATAPRES) 0.1 mg tablet Take 0.1 mg by mouth once daily. - docusate sodium (COLACE) 100 mg capsule Take 100 mg by mouth once daily. - folic acid 800 mcg tablet Take 800 mcg by mouth once daily. - lithium carbonate (ESKALITH) 150 mg capsule Take 150 mg by mouth two times a day with meals. - loratadine (CLARITIN) 10 mg tablet Take 10 mg by mouth once daily. - meloxicam (MOBIC) 15 mg tablet Take 15 mg by mouth once daily. - QUEtiapine XR (SEROQUEL XR) 400 mg 24 hr tablet Take 400 mg by mouth daily at bedtime. - RISPERDAL CONSTA 25 mg/2 mL injection Inject 25 mg intramuscularly every 2 weeks. - topiramate (TOPAMAX) 25 mg tablet Take 25 mg by mouth once daily. - famotidine (PEPCID) 20 mg tablet Take 20 mg by mouth two times a day. - albuterol HFA (PROVENTIL HFA, VENTOLIN HFA) 90 mcg/actuation inhaler Inhale 1 Puff as instructed as needed. - OYSTER SHELL CALCIUM-VITAMIN D 500 mg-5 mcg (200 unit) per tablet - WIXELA INHUB 250-50 mcg/dose inhaler Inhale 1 Puff as instructed two times a day. - MUCUS DM 30-600 mg per tablet Take 1 tablet by mouth every 12 hours as needed. - rvokth-daktrvjw-ujhkree (ENZADYNE) 9,000-112,500- 112,500 unit capsule Take 1 capsule by mouth daily with food. - nystatin (MYCOSTATIN) cream Apply to affected area two times a day. - OLANZapine (ZYPREXA) 5 mg tablet Take 5 mg by mouth every 12 hours as needed. Problem List As Of Date 06/24/2023 Noted Resolved Asthma [J45.909] 06/18/2023 COPD (chronic obstructive pulmonary disease) (H*06/18/2023 HTN (hypertension) [I10] 06/18/2023 GERD (gastroesophageal reflux disease) [K21.9] 06/18/2023 Goiter [E04.9] 06/18/2023 Nontoxic multinodular goiter [E04.2] 06/20/2023 Elevated serum creatinine [R79.89] 06/21/2023 Stage 2 chronic kidney disease [N18.2] 06/21/2023 Encounter Status:[facility] HNO [facility]: [id number] Author: YANDEL DANIEL MD Service: Otolaryngology Author Type: Nurse Practitioner Type: Discharge Summary Filed: 07/10/2023 12:59 Note Text: -------- Attestation signed by Yandel Daniel MD at 07/10/2023 12:59 PM dictated -------- DISCHARGE SUMMARY PATIENT NAME: Gail Almeida Code Status: Not on file Admission:06/18/2023 Discharge:06/22/2023 Highest Readmission Risk Score: 21 The 30 day readmissions risk score is derived from an internally validated risk model which evaluates patient level characteristics, utilization history, medication orders and lab results up until the day of discharge. Patients with a score of 40 or above are considered highest risk for readmission. Specific patient level drivers will be listed at the bottom of the summary. Additional Provider to Provider Information: The patient was taken to the operating room for Total thyroidectomy with removal of substernal goiter Parathyroid exploration with autotransplantation into bilateral sternocleidomastoid muscle Use of near infrared autofluorescence detection of parathyroid Use of NIMS nerve monitoring She underwent an uncomplicated surgery and was admitted for post op drain care and lab monitorimg. Diet and activity were gradually advanced. The patient was discharged on postoperative day #4 with instructions to appear for routine outpatient follow-up. A surgical drain was removed prior to discharge Active Hospital Problems as of 06/22/2023 Noted - Resolved POA Active Problems * (Principal) Nontoxic multinodular goiter 06/20/2023 - Present Yes Goiter 06/18/2023 - Present Yes Elevated serum creatinine 06/21/2023 - Present Clinically Undetermined Stage 2 chronic kidney disease 06/21/2023 - Present Unknown Resolved Hospital Problems as of 06/22/2023 None Transitions of Care Critical Issues: na LABS AND PROCEDURES PENDING AT DISCHARGE: Pathology Results (surgical) FOLLOW-UP APPOINTMENTS ALREADY SCHEDULED WITH A [facility] PROVIDER: Future Appointments Date Time Provider Department Center 09/27/2023 9:45 AM Yandel Daniel MD [facility] ALLERGIES Allergen Reactions - Aspirin Other: See Comments Shock - Barbituates [Barbit* Unknown - Codeine Unknown - Demerol [Meperidine] Unknown - Fluoxetine Unknown - Ibuprofen Unknown - Penicillins Other: See Comments Turns blue - Sulfa (Sulfonamide * Intolerance bad taste/odor Medication List START taking these medications calcium carbonate 500 mg calcium (1,250 mg) tablet Commonly known as: OS-RL 500 Take 1 tablet by mouth once daily. levothyroxine 112 mcg tablet Commonly known as: SYNTHROID Take 1 tablet by mouth daily before breakfast. CONTINUE taking these medications acidophilus-pectin, citrus 100 million cell-10 mg Cap albuterol HFA 90 mcg/actuation inhaler Commonly known as: PROVENTIL HFA, VENTOLIN HFA amantadine HCl 100 mg capsule Commonly known as: SYMMETREL B12 ACTIVE ORAL benzonatate 100 mg capsule Commonly known as: TESSALON PERLE benztropine 0.5 mg tablet Commonly known as: COGENTIN cloNIDine HCl 0.1 mg tablet Commonly known as: CATAPRES docusate sodium 100 mg capsule Commonly known as: COLACE famotidine 20 mg tablet Commonly known as: PEPCID Fluticasone Furoate 27.5 mcg/actuation nasal spray folic acid 800 mcg tablet kkqfsf-ckgklshi-enytzjd 9,000-112,500- 112,500 unit capsule Commonly known as: ENZADYNE lithium carbonate 150 mg capsule Commonly known as: ESKALITH loratadine 10 mg tablet Commonly known as: CLARITIN meloxicam 15 mg tablet Commonly known as: MOBIC MUCUS DM 30-600 mg per tablet Generic drug: dextromethorphan-guaiFEN esin nystatin cream Commonly known as: MYCOSTATIN OLANZapine 5 mg tablet Commonly known as: ZYPREXA Oyster Shell Calcium-Vitamin D 500 mg-5 mcg (200 unit) per tablet Generic drug: zvxvbti-wkvuqtuew-iewcre n D3 * QUEtiapine XR 400 mg 24 hr tablet Commonly known as: SEROquel XR * SeroqueL 25 mg tablet Generic drug: QUEtiapine RisperDAL Consta 25 mg/2 mL injection Generic drug: risperiDONE topiramate 25 mg tablet Commonly known as: TOPAMAX WIXELA INHUB 250-50 mcg/dose inhaler Generic drug: fluticasone-salmeterol * This list has 2 medication(s) that are the same as other medications prescribed for you. Read the directions carefully, and ask your doctor or other care provider to review them with you. ASK your doctor about these medications acetaminophen 500 mg tablet Commonly known as: TYLENOL Take 2 tablets by ORAL/FEEDING TUBE route every 6 hours for 5 days, THEN 1 tablet every 6 hours for 5 days. Start taking on: June 22, 2023 Ask about: Should I take this medication? oxyCODONE IR 5 mg immediate release tablet Commonly known as: ROXICODONE Ta (more content not included)... Normal [facility] CONSULTon 06-21-2023 CONSULT HNO ID: [id number] Author: MARIAH FOWLER MD Service: Hospital Medicine Author Type: Physician Type: Consults Filed: 06/21/2023 18:58 Note Text: INTERNAL MEDICINE INITIAL CONSULT SERVICE DATE: 06/21/2023 SERVICE TIME: 1:30 PM REASON FOR CONSULT: Elevation of serum creatinine (c/f MYESHA) REQUESTING PHYSICIAN: Dr. Daniel PRIMARY CARE PHYSICIAN: No primary care provider on file. Subjective HISTORY OF PRESENT ILLNESS: Ms. Almeida is a 67 year old female w PMHx of #Schizoaffective disorder #Bipolar disorder On Topiramate 25mg daily Quetiapine 12.5/12.5/400 Moneta 150mg BID Clonidine 0.1mg po daily Amantadine 100mg BID #COPD On Fluticasone / salmeterol inhaler (> Momerasone-formoterol inhaler bid inpatient) Albuterol One PFT 2013 found (scanned) but unable to read 2/2 poor image quality Who presents for total thyroidectomy for enlargement started 6-7 months on 06/18/2023. Surgery was completed as below: * THYROIDECTOMY TOTAL - under General anesthesia Total thyroidectomy with removal of substernal goiter Parathyroid autoimplantation into SCM x2 CROW-AF parathyroid detection Gen med team is consulted for co management of elevation of serum creatinine (SC) and c/f MYESHA. Of note, patient has been maintained goof urine output. Creatinine Date Value Ref Range Status 06/21/2023 1.20 (H) 0.58 - 0.96 mg/dL Final 06/20/2023 1.27 (H) 0.58 - 0.96 mg/dL Final 05/30/2023 1.03 (H) 0.58 - 0.96 mg/dL Final Creatinine (POCT) Date Value Ref Range Status 05/30/2023 1.10 0.58 - 1.22 mg/dL Final Also, per careeerywhere, last SC was SC 1.16 eGFR 47 07/2020 SC 1.29 06/2020 SC 1.26 03/2020 SC 1.10 12/2018 SC 0.94 11/2018 SC 1.07 09/2018 0.93 Based on these information, patient's baseline SC has been 1.10-1.29 in last a few years. When I interviewed the patient, patient confirmed the HPI above. She does not have urinary Sx (dysuria, frequency/urgency), AARON, h/o kidney stone, known CKD per her, recurrent UTI. No Fhx of kidney transplant, or dialysis. Patient has a PCP that she wants to keep follow up with. No past medical history on file. PAST SURGICAL HISTORY Procedure Laterality Date COLONOSCOPY SCREENING OVARIAN CYSTECTOMY PAST SURGICAL HISTORY OF Left breast lumpectomy- benign TOTAL ABDOM HYSTERECTOMY FAMILY HISTORY Problem Relation Age of Onset Breast Cancer Mother Prostate Cancer Father other (kidney cancer) Father Social History Tobacco Use Smoking status: Every Day Packs/day: 0.25 Years: 40.00 Additional pack years: 0.00 Total pack years: 10.00 Types: Cigarettes Smokeless tobacco: Never Tobacco comments: 3-4 cigarettes a day Substance Use Topics Alcohol use: Never Drug use: Never QUEtiapine (SEROQUEL) 25 mg tablet, Take 25 mg by mouth two times a day. Take 1/2 tablet twice daily, Disp: , Rfl: , 06/18/2023 at 0600 acidophilus-pectin, citrus 100 million cell-10 mg cap, Take by mouth., Disp: , Rfl: , 06/17/2023 Fluticasone Furoate 27.5 mcg/actuation nasal spray, Use 2 Sprays in each nostril once daily., Disp: , Rfl: , 06/17/2023 mecobalamin (B12 ACTIVE ORAL), Take 800 mcg by mouth once daily., Disp: , Rfl: , 06/17/2023 amantadine HCl (SYMMETREL) 100 mg capsule, Take 100 mg by mouth two times a day., Disp: , Rfl: , 06/17/2023 benztropine (COGENTIN) 0.5 mg tablet, Take 0.5 mg by mouth two times a day., Disp: , Rfl: , 06/17/2023 cloNIDine HCl (CATAPRES) 0.1 mg tablet, Take 0.1 mg by mouth once daily., Disp: , Rfl: , 06/17/2023 docusate sodium (COLACE) 100 mg capsule, Take 100 mg by mouth once daily., Disp: , Rfl: , 06/17/2023 folic acid 800 mcg tablet, Take 800 mcg by mouth once daily., Disp: , Rfl: , 06/17/2023 lithium carbonate (ESKALITH) 150 mg capsule, Take 150 mg by mouth two times a day with meals., Disp: , Rfl: , 06/17/2023 loratadine (CLARITIN) 10 mg tablet, Take 10 mg by mouth once daily., Disp: , Rfl: , 06/17/2023 meloxicam (MOBIC) 15 mg tablet, Take 15 mg by mouth once daily., Disp: , Rfl: , 06/17/2023 QUEtiapine XR (SEROQUEL XR) 400 mg 24 hr tablet, Take 400 mg by mouth daily at bedtime., Disp: , Rfl: , 06/17/2023 at 0600 RISPERDAL CONSTA 25 mg/2 mL injection, Inject 25 mg intramuscularly every 2 weeks., Disp: , Rfl: , 06/13/2023 topiramate (TOPAMAX) 25 mg tablet, Take 25 mg by mouth once daily., Disp: , Rfl: , 06/17/2023 famotidine (PEPCID) 20 mg tablet, Take 20 mg by mouth two times a day., Disp: , Rfl: , 06/17/2023 albuterol HFA (PROVENTIL HFA, VENTOLIN HFA) 90 mcg/actuation inhaler, Inhale 1 Puff as instructed as needed., Disp: , Rfl: , 06/17/2023 WIXELA INHUB 250-50 mcg/dose inhaler, Inhale 1 Puff as instructed two times a day., Disp: , Rfl: , 06/18/2023 at 0600 MUCUS DM 30-600 mg per tablet, Take 1 tablet by mouth every 12 hours as needed., Disp: , Rfl: , 06/17/2023 huyooa-ulizzgsy-qhmfgrl (ENZADYNE) 9,000-112,500- 112,500 unit capsule, Take 1 capsule by mouth daily with food., Disp: , Rfl: (more content not included)... Normal [facility] CYSTATIN Con 06-21-2023 Cystatin C [Mass/Vol] 1.84 mg/L High 0.61-0.95 [facility] Comment on above: Order Comment: Christianoi srinivas Type: BLOOD SPECIMENOrdering Facility: [facility] Address: [address] [place] [address] Performed By: #### 2 4362-6, CYSTC ####[facility] LABCLIA [id number] [place] [address] [place] CYSTATIN C EGFR 31 mL/min/1.73m??? Low >=60 C [facility] Comment on above: Order Comment: Pio espino Type: BLOOD SPECIMENOrdering Facility: [facility] Address: [address] [place] [address] Result Comment: Leanna mated Glomerular Filtration Rate (eGFR) is calculated using the 2012 CKD-EPI cystatin C equation. This equation utilizes serum cystatin C, sex, and age as parameters. The cystatin C assay has traceable calibration to the ERM-DA471/IF reference material. Refer to KDIGO guidelines for clinical interpretation. In patients with unstable renal function, e.g. those with acute kidney injury, the eGFR may not accurately reflect actual GFR. Performed By: #### 2 4362-6, CYSTC ####[facility] LABCLIA [id number] [place] [address] [place] Calcium.ionized [Moles/Vol]o n 06-21-2023 Calcium.ionized (Bld) [Mass/Vol] 1.27 mmol/L Normal 1.08-1.30 [facility] Comment on above: Order Comment: Pio espino Type: BLOOD SPECIMEN Order[facility] Facility: [facility] Address: [address] [id number] Performed By: #### 1 995-0 #### [facility] CLIA [id number] [address] [place] [address] [place] Calcium.ionized adjusted to pH 7.4 (Bld) [Moles/Vol] 1.29 mmol/L Normal 1.08-1.30 [facility] Comment on above: Order Comment: Speci men Type: BLOOD SPECIMEN Order[facility] Facility: [facility] Address: [address] [place] [address] Performed By: #### 1 995-0 #### [facility] CLIA [id number] [address] [place] [address] [place] NURSING PROGon 06-21-2023 NURSING PROG HNO ID: [id number] Author: AKIKO LONG RN Service: ? Author Type: Registered Nurse Type: Nursing Progress Note Filed: 06/21/2023 12:54 Note Text: Other: [address] Daniel, pt concerned about getting a ride set up to go home today, nursing concerned that ENDO is consulted now, Mc says pt can go home and follow up as outpatient with Endocrinology, will page [facility] [facility] Renal function 2000 panelon 06-21-2023 Albumin [Mass/Vol] 4.1 g/dL Normal 3.9-4.9 [facility] Comment on above: Order Comment: Speci men Type: BLOOD SPECIMENOrdering Facility: [facility] Address: [address] [id number] Performed By: #### 2 4362-6, CYSTC ####[facility] LABCLIA [id number] [place] [id number] [place] Anion gap [Moles/Vol] 13 mmol/L Normal 9-18 [facility] Comment on above: Order Comment: Speci men Type: BLOOD SPECIMENOrdering Facility: [facility] Address: [address] [place] [address] Performed By: #### 2 4362-6, CYSTC ####[facility] LABCLIA [id number] [facility] [place] [address] [place] Calcium [Mass/Vol] 9.6 mg/dL Normal 8.5-10.2 [facility] Comment on above: Order Comment: Speci men Type: BLOOD SPECIMENOrdering Facility: [facility] Address: [address] [place] [address] Performed By: #### 2 4362-6, CYSTC ####[facility] LABCLIA [id number] [place] [address] [place] Chloride [Moles/Vol] 104 mmol/L Normal 97-105 [facility] Comment on above: Order Comment: Speci men Type: BLOOD SPECIMENOrdering Facility: [facility] Address: [address] [place] [address] Performed By: #### 2 4362-6, CYSTC ####[facility] LABCLIA [id number] [place] [address] [place] CO2 [Moles/Vol] 25 mmol/L Normal 22-30 [facility] Comment on above: Order Comment: Speci men Type: BLOOD SPECIMENOrdering Facility: [facility] Address: [address] [place] [address] Performed By: #### 2 4362-6, CYSTC ####[facility] LABCLIA [id number] [place] [address] [place] Creatinine [Mass/Vol] 1.20 mg/dL High 0.58-0.96 [facility] Comment on above: Order Comment: Speci men Type: BLOOD SPECIMENOrdering Facility: [facility] Address: [address] [place] [address] Performed By: #### 2 4362-6, CYSTC ####[facility] LABCLIA [id number] [place] [address] [place] Creatinine and Glomerular filtration rate.predicted panel (S/P/Bld) 50 mL/min/1.73m??? Low >=60 [facility] Comment on above: Order Comment: Pio espino Type: BLOOD SPECIMENOrdering Facility: [facility] Address: [address] [place] [address] Result Comment: Leanna mated Glomerular Filtration Rate (eGFR) is calculated using the 2020 CKD-EPI creatinine equation. This equation utilizes serum creatinine, sex, and age as parameters. The creatinine assay has traceable calibration to isotope dilution-mass spectrometry. Refer to KDIGO guidelines for clinical interpretation. In patients with unstable renal function, e.g. those with acute kidney injury, the eGFR may not accurately reflect actual GFR. Performed By: #### 2 4362-6, CYSTC ####[facility] LABCLIA [id number] [place] [address] [place] Glucose [Mass/Vol] 161 mg/dL High 74-99 [facility] Comment on above: Order Comment: Pio espino Type: BLOOD SPECIMENOrdering Facility: [facility] Address: [address] [place] [address] Result Comment: The [place] [employer] (ADA) provides guidance for cutoff values for fasting glucose and random glucose. The ADA defines fasting as no caloric intake for at least 8 hours. Fasting plasma glucose results between 100 to 125 mg/dL indicate increased risk for diabetes (prediabetes). Fasting plasma glucose results greater than or equal to 126 mg/dL meet the criteria for diagnosis of diabetes. In the absence of unequivocal hyperglycemia, results should be confirmed by repeat testing. In a patient with classic symptoms of hyperglycemia or hyperglycemic crisis, random plasma glucose results greater than or equal to 200 mg/dL meet the criteria for diagnosis of diabetes. Reference: Standards of Medical Care in Diabetes 2016, [place] [employer]. Diabetes Care. 2016.39(Suppl 1). Performed By: #### 2 4362-6, CYSTC ####[facility] LABIA [id number] [place] [address] [place] Phosphate [Mass/Vol] 4.2 mg/dL Normal 2.7-4.8 [facility] Comment on above: Order Comment: Speci men Type: BLOOD SPECIMENOrdering Facility: [facility] Address: [address] [place] [address] Performed By: #### 2 4362-6, CYSTC ####[facility] LABCLIA [id number] [place] [address] [place] Potassium [Moles/Vol] 4.0 mmol/L Normal 3.7-5.1 [facility] Comment on above: Order Comment: Speci men Type: BLOOD SPECIMENOrdering Facility: [facility] Address: [address] [place] [address] Performed By: #### 2 4362-6, CYSTC ####[facility] LABCLIA [id number] [place] [address] [place] Sodium [Moles/Vol] 142 mmol/L Normal 136-144 [facility] Comment on above: Order Comment: Speci men Type: BLOOD SPECIMENOrdering Facility: [facility] Address: [address] [place] [address] Performed By: #### 2 4362-6, CYSTC ####[facility] LABIA [id number] [place] [address] [place] Urea nitrogen [Mass/Vol] 26 mg/dL High 7-21 [facility] Comment on above: Order Comment: Speci men Type: BLOOD SPECIMENOrdering Facility: [facility] Address: [address] [place] [address] Performed By: #### 2 4362-6, CYSTC ####[facility] LABIA [id number] [place] [address] [place] Urinalysis complete panel (U )on 06-21-2023 Bacteria LM.HPF (Urine sed) [#/Area] Negative Normal Negative [facility] Comment on above: Order Comment: Speci men Type: URINE SPECIMENOrdering Facility: [facility] Address: [address] [place] [address] Performed By: #### 2 4356-8 ####[facility] LABCLIA [id number] [place] [address] [place] Bilirubin Ql (U) Negative Normal Negative [facility] Comment on above: Order Comment: Speci men Type: URINE SPECIMENOrdering Facility: [facility] Address: [address] [place] [address] Performed By: #### 2 4356-8 ####[facility] LABCLIA [id number] [place] [address] [place] Clarity (Unsp spec) Clear Normal Clear [facility] Comment on above: Order Comment: Speci men Type: URINE SPECIMENOrdering Facility: [facility] Address: [address] [place] [address] Performed By: #### 2 4356-8 ####[facility] LABIA [id number] [place] [address] [place] [facility] Color (U) Yellow Normal Yellow [facility] Comment on above: Order Comment: Speci men Type: URINE SPECIMENOrdering Facility: [facility] Address: [address] [place] [address] Performed By: #### 2 4356-8 ####[facility] LABIA [id number] [place] [address] [place] Epithelial cells LM.HPF (Urine sed) [#/Area] Few Normal [facility] Comment on above: Order Comment: Speci men Type: URINE SPECIMENOrdering Facility: [facility] Address: [address] [place] [address] Performed By: #### 2 4356-8 ####[facility] LABIA [id number] [place] [address] [place] Glucose Test strip (U) [Mass/Vol] Negative Normal Negative [facility] Comment on above: Order Comment: Speci men Type: URINE SPECIMENOrdering Facility: [facility] Address: [address] [place], [place] [address] Performed By: #### 2 4356-8 ####[facility] LABCLIA [id number] [place] [address] [place] Hemoglobin Ql (U) Negative Normal Negative [facility] Comment on above: Order Comment: Speci men Type: URINE SPECIMENOrdering Facility: [facility] Address: [address] [place] [address] Performed By: #### 2 4356-8 ####[facility] LABCLIA [id number] [place] [address] [place] Hyaline casts (Urine sed) [#/Area] 0 /[LPF] Normal 0 /LPF [facility] Comment on above: Order Comment: Speci men Type: URINE SPECIMENOrdering Facility: [facility] Address: [address] [place] [address] Performed By: #### 2 4356-8 ####[facility] LABCLIA [id number] [place] [address] [place] Ketones Ql (U) Negative Normal Negative [facility] Comment on above: Order Comment: Speci men Type: URINE SPECIMENOrdering Facility: [facility] Address: [address] [place] [address] Performed By: #### 2 4356-8 ####[facility] LABCLIA [id number] [place] [address] [place] Leukocyte esterase Test strip Ql (U) 1+ Abnormal Negative [facility] Comment on above: Order Comment: Speci men Type: URINE SPECIMENOrdering Facility: [facility] Address: [address] [place] [address] Performed By: #### 2 4356-8 ####[facility] LABCLIA [id number] [place] [address] [place] Nitrite Ql (U) Negative Normal Negative [facility] Comment on above: Order Comment: Speci men Type: URINE SPECIMENOrdering Facility: [facility] Address: [address] [place] [address] Performed By: #### 2 4356-8 ####[facility] LABIA [id number] [place] [address] [place] pH (U) 7.0 [pH] Normal <8.5 [facility] Comment on above: Order Comment: Speci men Type: URINE SPECIMENOrdering Facility: [facility] Address: [address] [place] [address] Performed By: #### 2 4356-8 ####[facility] LABIA [id number] [place] [address] [place] Protein (U) [Mass/Vol] Negative Normal Negative [facility] Comment on above: Order Comment: Speci men Type: URINE SPECIMENOrdering Facility: [facility] Address: [address] [place] [address] Performed By: #### 2 4356-8 ####[facility] LABIA [id number] [place] [address] [place] RBC LM.HPF (Urine sed) [#/Area] 0-2 /HPF Normal 0-2 /HPF [facility] Comment on above: Order Comment: Speci men Type: URINE SPECIMENOrdering Facility: [facility] Address: [address] [place] [address] Performed By: #### 2 4356-8 ####[facility] LABIA [id number] [place] [address] [place] Specific gravity (U) [Rel density] 1.009 Normal 1.005-1.03 0 [facility] Comment on above: Order Comment: Speci men Type: URINE SPECIMENOrdering Facility: [facility] Address: [address] [place] [address] Performed By: #### 2 4356-8 ####[facility] LABIA [id number] [place] [address] [place] Urobilinogen Ql (U) 0.2 EU/dL Normal 0.2-1.0 EU/dL [facility] Comment on above: Order Comment: Speci men Type: URINE SPECIMENOrdering Facility: [facility] Address: [address] [place] [address] Performed By: #### 2 4356-8 ####[facility] LABCLIA [id number] [place] [address] [place] WBC LM.HPF (Urine sed) [#/Area] 0-5 /HPF Normal 0-5 /HPF [facility] Comment on above: Order Comment: Speci men Type: URINE SPECIMENOrdering Facility: [facility] Address: [address] [place] [address] Performed By: #### 2 4356-8 ####[facility] LABCLIA [id number] [place] [address] [place] Basic metabolic 2000 panelon 06-20-2023 Anion gap [Moles/Vol] 10 mmol/L Normal 9-18 [facility] Comment on above: Order Comment: Speci men Type: BLOOD SPECIMEN [facility] Address: [address] [place] [address] Performed By: #### 1 995-0 #### [facility] CLIA [id number] [address] [place] [address] [place] Calcium [Mass/Vol] 10.8 mg/dL High 8.5-10.2 [facility] Comment on above: Order Comment: Speci men Type: BLOOD SPECIMEN [facility] Address: [address] [place] [address] Performed By: #### 1 995-0 #### [facility] CLIA [id number] [address] [place] [address] [place] Chloride [Moles/Vol] 104 mmol/L Normal 97-105 [facility] Comment on above: Order Comment: Speci men Type: BLOOD SPECIMEN [facility] Address: [address] [place] [address] Performed By: #### 1 995-0 #### [facility] CLIA [id number] [address] [place] [address] [place] [facility] CO2 [Moles/Vol] 26 mmol/L Normal 22-30 [facility] Comment on above: Order Comment: Speci men Type: BLOOD SPECIMEN [facility] Address: [address] [place] [address] Performed By: #### 1 995-0 #### [facility] CLIA [id number] [address] [place] [address] [facility] Creatinine [Mass/Vol] 1.27 mg/dL High 0.58-0.96 [facility] Comment on above: Order Comment: Speci men Type: BLOOD SPECIMEN [facility] Address: [address] [place] [address] Performed By: #### 1 995-0 #### [facility] CLIA [id number] [address] [place] [address] Creatinine and Glomerular filtration rate.predicted panel (S/P/Bld) 47 mL/min/1.73m??? Low >=60 [facility] Comment on above: Order Comment: Speci men Type: BLOOD SPECIMEN [facility] Address: [address] [place] [address] Result Comment: Leanna mated Glomerular Filtration Rate (eGFR) is calculated using the 2020 CKD-EPI creatinine equation. This equation utilizes serum creatinine, sex, and age as parameters. The creatinine assay has traceable calibration to isotope dilution-mass spectrometry. Refer to KDIGO guidelines for clinical interpretation. In patients with unstable renal function, e.g. those with acute kidney injury, the eGFR may not accurately reflect actual GFR. Performed By: #### 1 995-0 #### [facility] CLIA [id number] [facility] [place] [address] [place] Glucose [Mass/Vol] 113 mg/dL High 74-99 [facility] Comment on above: Order Comment: Speci men Type: BLOOD SPECIMEN [facility] Address: [address] [place] [address] Result Comment: The [place] [employer] (ADA) provides guidance for cutoff values for fasting glucose and random glucose. The ADA defines fasting as no caloric intake for at least 8 hours. Fasting plasma glucose results between 100 to 125 mg/dL indicate increased risk for diabetes (prediabetes). Fasting plasma glucose results greater than or equal to 126 mg/dL meet the criteria for diagnosis of diabetes. In the absence of unequivocal hyperglycemia, results should be confirmed by repeat testing. In a patient with classic symptoms of hyperglycemia or hyperglycemic crisis, random plasma glucose results greater than or equal to 200 mg/dL meet the criteria for diagnosis of diabetes. Reference: Standards of Medical Care in Diabetes 2016, [place] [employer]. Diabetes Care. 2016.39(Suppl 1). Performed By: #### 1 995-0 #### [facility] CLIA [id number] [address] [place] [address] [place] Potassium [Moles/Vol] 4.0 mmol/L Normal 3.7-5.1 [facility] Comment on above: Order Comment: Pio espino Type: BLOOD SPECIMEN [facility] Address: [address] [place] [address] Performed By: #### 1 995-0 #### [facility] CLIA [id number] [address] [place] [address] [place] Sodium [Moles/Vol] 140 mmol/L Normal 136-144 [facility] Comment on above: Order Comment: Speci men Type: BLOOD SPECIMEN [facility] Address: [address] [place] [address] Performed By: #### 1 995-0 #### [facility] CLIA [id number] [address] [place] [address] [place] Urea nitrogen [Mass/Vol] 26 mg/dL High 7-21 [facility] Comment on above: Order Comment: Speci men Type: BLOOD SPECIMEN [facility] Address: [address] [place] [address] Performed By: #### 1 995-0 #### [facility] CLIA [id number] [address] [place] [address] [place] CBC panel Auto (Bld)on 06-20 Erythrocyte distribution width (RBC) [Ratio] 13.3 % Normal 11.5-15.0 [facility] Comment on above: Order Comment: Speci men Type: BLOOD SPECIMENOrdering Facility: [facility] Address: [address] [place] [address] Performed By: #### 2 731-8, 40687-6 ####[facility] LABCLIA [id number] [place] [address] [place] Hematocrit (Bld) [Volume fraction] 42.6 % Normal 36.0-46.0 [facility] Comment on above: Order Comment: Speci men Type: BLOOD SPECIMENOrdering Facility: [facility] Address: [address] [place] [address] Performed By: #### 2 731-8, 68981-3 ####[facility] LABCLIA [id number] [place] [address] [place] Hemoglobin (Bld) [Mass/Vol] 14.0 g/dL Normal 11.5-15.5 [facility] Comment on above: Order Comment: Speci men Type: BLOOD SPECIMENOrdering Facility: [facility] Address: [address] [place] [address] Performed By: #### 2 731-8, 24548-6 ####[facility] LABCLIA [id number] [place] [address] [place] MCH (RBC) [Entitic mass] 31.7 pg Normal 26.0-34.0 [facility] Comment on above: Order Comment: Speci men Type: BLOOD SPECIMENOrdering Facility: [facility] Address: [address] [place] [address] Performed By: #### 2 731-8, 65275-0 ####[facility] LABIA [id number] [place] [address] [place] MCHC (RBC) [Mass/Vol] 32.9 g/dL Normal 30.5-36.0 [facility] Comment on above: Order Comment: Speci men Type: BLOOD SPECIMENOrdering Facility: [facility] Address: [address] [place] [address] Performed By: #### 2 731-8, 25004-5 ####[facility] LABIA [id number] [place] [address] [place] MCV (RBC) [Entitic vol] 96.4 fL Normal 80.0-100.0 C [facility] Comment on above: Order Comment: Speci men Type: BLOOD SPECIMENOrdering Facility: [facility] Address: [address] [place] [address] Performed By: #### 2 731-8, 84359-8 ####[facility] LABIA [id number] [place] [address] [place] Nucleated RBC (Bld) [#/Vol] 10*3/uL Normal <0.01 [facility] Comment on above: Order Comment: Speci men Type: BLOOD SPECIMENOrdering Facility: [facility] Address: [address] [place] [address] Performed By: #### 2 731-8, 72908-1 ####[facility] LABIA [id number] [place] [address] [place] Platelet mean volume (Bld) [Entitic vol] 10.1 fL Normal 9.0-12.7 [facility] Comment on above: Order Comment: Speci men Type: BLOOD SPECIMENOrdering Facility: [facility] Address: [address] [place] [address] Performed By: #### 2 731-8, 39669-9 ####[facility] LABCLIA [id number] [place] [address] [place] Platelets (Bld) [#/Vol] 201 10*3/uL Normal 150-400 [facility] Comment on above: Order Comment: Speci men Type: BLOOD SPECIMENOrdering Facility: [facility] Address: [address] [place] [address] Performed By: #### 2 731-8, 77928-4 ####[facility] LABIA [id number] [place] [address] [place] RBC (Bld) [#/Vol] 4.42 10*6/uL Normal 3.90-5.20 [facility] Comment on above: Order Comment: Speci men Type: BLOOD SPECIMENOrdering Facility: [facility] Address: [address] [place] [address] Performed By: #### 2 731-8, 01065-9 ####[facility] LABIA [id number] [place] [address] [place] WBC (Bld) [#/Vol] 7.26 10*3/uL Normal 3.70-11.00 [facility] Comment on above: Order Comment: Speci men Type: BLOOD SPECIMENOrdering Facility: [facility] Address: [address] [place] [address] Performed By: #### 2 731-8, 54373-5 ####[facility] LABIA [id number] [place] [address] [place] Calcium.ionized [Moles/Vol]o n 06-20-2023 Calcium.ionized (Bld) [Mass/Vol] 1.37 mmol/L High 1.08-1.30 [facility] Comment on above: Order Comment: Speci men Type: BLOOD SPECIMENOrdering Facility: [facility] Address: [address] [place] [address] Performed By: #### 1 995-0 ####[facility] [id number] [place] [address] [place] Calcium.ionized adjusted to pH 7.4 (Bld) [Moles/Vol] 1.38 mmol/L High 1.08-1.30 [facility] Comment on above: Order Comment: Speci men Type: BLOOD SPECIMENOrdering Facility: [facility] Address: [address] [place] [address] Performed By: #### 1 995-0 ####[facility] [id number] [place] [address] [place] Calcium.ionized (Bld) [Mass/Vol] 1.38 mmol/L High 1.08-1.30 [facility] Comment on above: Order Comment: Speci men Type: BLOOD SPECIMENOrdering Facility: [facility] Address: [address] [place] [address] Performed By: #### 1 995-0 ####[facility] [id number] [place] [address] [place] Calcium.ionized adjusted to pH 7.4 (Bld) [Moles/Vol] 1.40 mmol/L High 1.08-1.30 [facility] Comment on above: Order Comment: Speci men Type: BLOOD SPECIMENOrdering Facility: [facility] Address: [address] [place] [address] Performed By: #### 1 995-0 ####[facility] [id number] [place] [address] [place] Magnesium SerPl-ncon 06-20 Magnesium [Mass/Vol] 1.8 mg/dL Normal 1.7-2.3 [facility] Comment on above: Order Comment: Speci men Type: BLOOD SPECIMEN [facility] Address: [address] [place] [address] Performed By: #### 1 995-0 #### [facility] CLIA [id number] [address] [place] PTH-Intact SerPl-mCncon 06-03 Parathyrin.intact [Mass/Vol] pg/mL Low 15-65 [facility] [facility] Comment on above: Order Comment: Speci men Type: BLOOD SPECIMEN Ordering Facility: [facility] Address: [address] [place] [address] Result Comment: Resu lt rechecked. Performed By: #### 1 995-0 #### [facility] CLIA [id number] [address] [place] [address] [place] Order Comment: Speci men Type: BLOOD SPECIMENOrdering Facility: [facility] Address: [address] [place] [address] Performed By: #### 2 731-8, 70628-6 ####[facility] [id number] [place] [address] [place] [facility] Phosphate [Mass/Vol] 4.9 mg/dL High 2.7-4.8 [facility] Comment on above: Order Comment: Speci men Type: BLOOD SPECIMEN Ordering Facility: [facility] Address: [address] [place] [address] Performed By: #### 1 995-0 #### [facility] CLIA [id number] [address] [place] [address] [place] CNPNon 06-19-2023 CNPN Telephone (HNQ) -------- GAIL ALMEIDA ([id number]) 1955 F Date Time Provider Department 06/19/23 YANDEL DANIEL During your visit today, we recorded the following information about you: MichaelNena perez 06/19/2023 9:56 AM Signed Person Calling: Margaux - RN at [facility] Reason for Call: Margaux called wanting to check in on how the patient is doing after surgery. She also wanted to know if the patient was still planning on being discharged today Margaux: [phone] Pt last seen: 06/18/23 Nena Rodriguez Allergies As of Date: 06/19/2023 Noted Allergy Reaction ASPIRIN 04/11/2023 14 - Other: See Comments Comments: Shock BARBITUATES (BARBITURATES) 04/11/2023 16 - Unknown CODEINE 04/11/2023 16 - Unknown DEMEROL (MEPERIDINE) 04/11/2023 16 - Unknown FLUOXETINE 04/11/2023 16 - Unknown IBUPROFEN 04/11/2023 16 - Unknown PENICILLINS 04/11/2023 14 - Other: See Comments Comments: Turns blue SULFA (SULFONAMIDE ANTIBIOTICS) 04/11/2023 5 - Intolerance Comments: bad taste/odor Date Reviewed: 06/18/2023 Reviewed by: Jonathan Valencia, TAWANNA - Fully Assessed Reason for Visit: Patient Update [1234] Prescriptions as of 06/19/2023 - QUEtiapine (SEROQUEL) 25 mg tablet Take 25 mg by mouth two times a day. Take 1/2 tablet twice daily - levothyroxine (SYNTHROID) 112 mcg tablet Take 1 tablet by mouth daily before breakfast. - calcitriol (ROCALTROL) 0.5 mcg capsule Take 1 capsule by mouth once daily. - calcium carbonate (OS-RL 500) 500 mg calcium (1,250 mg) tablet Take 1 tablet by mouth two times a day. - oxyCODONE IR (ROXICODONE) 5 mg immediate release tablet Take 1 tablet by mouth every 8 hours as needed for pain for up to 5 days. - acidophilus-pectin, citrus 100 million cell-10 mg cap Take by mouth. - Fluticasone Furoate 27.5 mcg/actuation nasal spray Use 2 Sprays in each nostril once daily. - mecobalamin (B12 ACTIVE ORAL) Take 800 mcg by mouth once daily. - amantadine HCl (SYMMETREL) 100 mg capsule Take 100 mg by mouth two times a day. - benzonatate (TESSALON PERLE) 100 mg capsule Take 100 mg by mouth once daily. - benztropine (COGENTIN) 0.5 mg tablet Take 0.5 mg by mouth two times a day. - cloNIDine HCl (CATAPRES) 0.1 mg tablet Take 0.1 mg by mouth once daily. - docusate sodium (COLACE) 100 mg capsule Take 100 mg by mouth once daily. - folic acid 800 mcg tablet Take 800 mcg by mouth once daily. - lithium carbonate (ESKALITH) 150 mg capsule Take 150 mg by mouth two times a day with meals. - loratadine (CLARITIN) 10 mg tablet Take 10 mg by mouth once daily. - meloxicam (MOBIC) 15 mg tablet Take 15 mg by mouth once daily. - QUEtiapine XR (SEROQUEL XR) 400 mg 24 hr tablet Take 400 mg by mouth daily at bedtime. - RISPERDAL CONSTA 25 mg/2 mL injection Inject 25 mg intramuscularly every 2 weeks. - topiramate (TOPAMAX) 25 mg tablet Take 25 mg by mouth once daily. - famotidine (PEPCID) 20 mg tablet Take 20 mg by mouth two times a day. - albuterol HFA (PROVENTIL HFA, VENTOLIN HFA) 90 mcg/actuation inhaler Inhale 1 Puff as instructed as needed. - OYSTER SHELL CALCIUM-VITAMIN D 500 mg-5 mcg (200 unit) per tablet - WIXELA INHUB 250-50 mcg/dose inhaler Inhale 1 Puff as instructed two times a day. - MUCUS DM 30-600 mg per tablet Take 1 tablet by mouth every 12 hours as needed. - mlmqwy-jrbyasry-cqvrvzp (ENZADYNE) 9,000-112,500- 112,500 unit capsule Take 1 capsule by mouth daily with food. - nystatin (MYCOSTATIN) cream Apply to affected area two times a day. - OLANZapine (ZYPREXA) 5 mg tablet Take 5 mg by mouth every 12 hours as needed. Facility-Administered Medications as of 06/19/2023 - calcium carbonate 1,250 mg tab(s) (OS-RL 500) - calcitriol 0.5 mcg cap(s) (ROCALTROL) - QUEtiapine 12.5 mg tab(s) (SEROquel) - mometasone-formoterol 100-5 mcg/actuation 2 Puff inhaler (DULERA) - topiramate 25 mg tab(s) (TOPAMAX) - OLANZapine 5 mg tab(s) (ZYPREXA) - docusate sodium 100 mg cap(s) (COLACE) - cloNIDine HCl 0.1 mg tab(s) (CATAPRES) - benztropine 0.5 mg tab(s) (COGENTIN) - amantadine HCl 100 mg cap(s) (SYMMETREL) - albuterol HFA 90 mcg/actuation 1 Puff (PROVENTIL HFA, VENTOLIN HFA) - NaCl 0.9% iv flush bag - NaCl 0.9% iv infusion - acetaminophen 1,000 mg tab(s) (TYLENOL) - acetaminophen 500 mg tab(s) (TYLENOL) - oxyCODONE IR 5-10 mg tab(s) (ROXICODONE) - oxyCODONE 5-10 mg oral liquid (ROXICODONE) - bacitracin 500 unit/gram topical ointment - enoxaparin 40 mg injection (LOVENOX) - levothyroxine 112 mcg tab(s) (SYNTHROID) - lithium carbonate 150 mg tab(s) - famotidine 20 mg tab(s) (PEPCID) - QUEtiapine 400 mg tab(s) (SEROquel) - benzocaine-menthol 1 Lozenge (CHLORASEPTIC) Problem List As Of Date 06/19/2023 Noted Resolved Asthma [J45.909] 06/18/2023 COPD (chronic obstructive pulmonary disease) (H*06/18/2023 HTN (hypertension) [I10] (more content not included)... Normal [facility] Calcium.ionized [Moles/Vol]o n 06-19-2023 Calcium.ionized (Bld) [Mass/Vol] 1.43 mmol/L High 1.08-1.30 [facility] Comment on above: Order Comment: Speci men Type: BLOOD SPECIMENOrdering Facility: [facility] Address: [address] [place], [place] [address]Mauro [place]ENNEY, [place] [address] Performed By: #### 1 995-0 ####[facility]IA [id number] [place] [address] [place] Calcium.ionized adjusted to pH 7.4 (Bld) [Moles/Vol] 1.43 mmol/L High 1.08-1.30 [facility] Comment on above: Order Comment: Speci men Type: BLOOD SPECIMENOrdering Facility: [facility] Address: [address] [place] [address] Performed By: #### 1 995-0 ####[facility]IA [id number] [place] [address] [place] Calcium.ionized (Bld) [Mass/Vol] 1.37 mmol/L High 1.08-1.30 [facility] Comment on above: Order Comment: Speci men Type: BLOOD SPECIMENOrdering Facility: [facility] Address: [address] [place] [address] Performed By: #### 1 995-0 ####[facility]IA [id number] [place] [address] [place] Calcium.ionized adjusted to pH 7.4 (Bld) [Moles/Vol] 1.35 mmol/L High 1.08-1.30 [facility] Comment on above: Order Comment: Speci men Type: BLOOD SPECIMENOrdering Facility: [facility] Address: [address] [place] [address] Performed By: #### 1 995-0 ####[facility]IA [id number] [place] [address] [place] Calcium.ionized (Bld) [Mass/Vol] 1.28 mmol/L Normal 1.08-1.30 [facility] Comment on above: Order Comment: Speci men Type: BLOOD SPECIMENOrdering Facility: [facility] Address: [address] [place] [address] Performed By: #### 1 995-0 ####[facility]IA [id number] [place] [address] [place] Calcium.ionized adjusted to pH 7.4 (Bld) [Moles/Vol] 1.27 mmol/L Normal 1.08-1.30 [facility] Comment on above: Order Comment: Speci men Type: BLOOD SPECIMENOrdering Facility: [facility] Address: [address] [place] [address] Performed By: #### 1 995-0 ####[facility] LABCLIA [id number] [place] [address] [place] Calcium.ionized (Bld) [Mass/Vol] 1.27 mmol/L Normal 1.08-1.30 [facility] Comment on above: Order Comment: Speci men Type: BLOOD SPECIMEN Ordering Facility: [facility] Address: [address] [place] [address] Performed By: #### 1 995-0 #### [facility] CLIA [id number] [address] [place] [address] [place] Calcium.ionized adjusted to pH 7.4 (Bld) [Moles/Vol] 1.24 mmol/L Normal 1.08-1.30 [facility] Comment on above: Order Comment: Speci men Type: BLOOD SPECIMEN Ordering Facility: [facility] Address: [address] [place] [address] Performed By: #### 1 995-0 #### [facility] CLIA [id number] [address] [place] [address] [place] PTH-Intact SerPl-ncon - Parathyrin.intact [Mass/Vol] 6 pg/mL Low 15-65 [facility] Comment on above: Order Comment: Speci men Type: BLOOD SPECIMEN Ordering Facility: [facility] Address: [address] [place] [address] Performed By: #### 1 995-0 #### [facility] CLIA [id number] [address] [place] [id number] [facility] [place] ANES POSTPROC EVALon 024 ANES POSTPROC EVAL HNO ID: [id number] Author: LU CAREY MD Service: ? Author Type: Anesthesiologist Type: Anesthesia Postprocedure Evaluation Filed: 06/18/2023 18:05 Note Text: POST ANESTHESIA EVALUATION NOTE : 1955 Procedure Summary Date: 06/18/23 Room / Location: [address] [place] Anesthesia Start: 1159 Anesthesia Stop: 1555 Procedure: THYROIDECTOMY TOTAL (Thyroid) Diagnosis: Nontoxic multinodular goiter (Nontoxic multinodular goiter [E04.2]) Surgeons: Yandel Daniel MD Responsible Provider: Lu Carey MD Anesthesia Type: general ASA Status: 3 Anesthesia Type: general Airway Type: ETT Last Vitals Vitals Value Taken Time BP 149/86 06/18/23 1800 Temp 36.3 ?C (97.3 ?F) 06/18/23 1730 Pulse 100 06/18/23 1803 Resp 17 06/18/23 1803 SpO2 98 % 06/18/23 1803 Vitals shown include unfiled device data. Post Anesthesia Patient Status Patient Evaluation: PACU. PACU/ICU Patient Condition: stable. Neurological Status: aware and responsive. Pulmonary Status: breathing comfortably on supplemental oxygen Airway Control: returned to baseline unsupported. Cardiovascular Status: stable. Pain Management: clinically adequate Postoperative Hydration: acceptable. Intraoperative Events: no significant anesthesia events Post Operative Nausea/Vomiting Status: no significant post operative nausea or vomiting Recommendation: continue current plan of care. Anesthesia Observations No Documentation SIGNATURE: Lu Carey MD PATIENT NAME: Gail Almeida DATE: June 18, 2023 TIME: 6:05 PM CSN: [id number] Normal [facility] ANES PRE-OPon 06-18-2023 ANES PRE-OP HNO ID: [id number] Author: JANETH VARGAS DO Service: ? Author Type: Physician Type: Anesthesia Preprocedure Evaluation Filed: 06/18/2023 12:51 Note Text: ANESTHESIOLOGY DAY OF SURGERY NOTE : 1955 Procedure Information Date/Time: 06/18/23 1045 Procedure: THYROIDECTOMY TOTAL (Thyroid) Location: MAIN [address] [place] Surgeons: Yandel Daniel MD Estimated body mass index is 25.38 kg/m? as calculated from the following: Height as of 05/30/23: 160 cm (5' 3 ). Weight as of 05/30/23: 65 kg (143 lb 4.8 oz). Most recent hematocrit and potassium results: Hematocrit 38.6 05/30/2023 Potassium 4.6 05/30/2023 Relevant Problems CARDIO (+) HTN (hypertension) GI (+) GERD (gastroesophageal reflux disease) PULMONARY (+) Asthma (+) COPD (chronic obstructive pulmonary disease) (HCC) Endocrinology (+) Goiter I - PHYSICAL EVALUATION AIRWAY Patient intubated: No. Tracheostomy tube not present Mallampati: III. TM distance: >3 FB. Neck ROM: full ROM without neurological symptoms. Mouth opening: adequate. Short neck: no. Thick neck: no DENTAL Dental findings: edentulous. Additional exam findings: yes. Other findings: Large goiter. II - ANESTHESIA PLAN ASA Score: 3 Anesthetic Plan: general Airway type: ETT NPO Status: adequate Beta Koki Monitoring Plan Monitoring plan: standard ASA. Post Procedure Analgesic Plan Postoperative analgesic plan: per surgical service, parenteral or oral opioids and multimodal analgesia. Informed Consent Anesthetic risks, benefits, alternatives, personnel and consent discussed: yes. Patient / Responsible Constitution Party agrees to proceed: yes Patient / Surrogate agrees to blood products: Yes Significant changes in the patient condition since the History and Physical, not otherwise documented in primary service progress note: no. Potential Anesthesia issues that may suggest increased risk of complications or contraindication to planned procedure: potential difficult intubation. No vitals data found for the desired time range. No current facility-administered medications on file as of 06/18/2023. Outpatient Medications as of 06/18/2023 Medication Sig - mecobalamin (B12 ACTIVE ORAL) Take 800 mcg by mouth once daily. - amantadine HCl (SYMMETREL) 100 mg capsule Take 100 mg by mouth two times a day. - benzonatate (TESSALON PERLE) 100 mg capsule Take 100 mg by mouth once daily. - benztropine (COGENTIN) 0.5 mg tablet Take 0.5 mg by mouth two times a day. - lithium carbonate (ESKALITH) 150 mg capsule Take 150 mg by mouth two times a day with meals. - loratadine (CLARITIN) 10 mg tablet Take 10 mg by mouth once daily. - meloxicam (MOBIC) 15 mg tablet Take 15 mg by mouth once daily. - RISPERDAL CONSTA 25 mg/2 mL injection Inject 25 mg intramuscularly every 2 weeks. - topiramate (TOPAMAX) 25 mg tablet Take 25 mg by mouth once daily. - OYSTER SHELL CALCIUM-VITAMIN D 500 mg-5 mcg (200 unit) per tablet - WIXELA INHUB 250-50 mcg/dose inhaler Inhale 1 Puff as instructed two times a day. - MUCUS DM 30-600 mg per tablet Take 1 tablet by mouth every 12 hours as needed. - nystatin (MYCOSTATIN) cream Apply to affected area two times a day. - OLANZapine (ZYPREXA) 5 mg tablet Take 5 mg by mouth every 12 hours as needed. I have interviewed and examined the patient. I have reviewed the medical record and/or the pre-anesthesia evaluation, pertinent labs, and test results. This contains updated information obtained within 48 hours of Surgery/Procedure. SIGNATURE: Janeth Vargas DO PATIENT NAME: Gail Almeida DATE: June 18, 2023 TIME: 9:48 AM CSN: [id number] Normal [facility] BRIEF OP NOTon 06-18-2023 BRIEF OP NOT HNO ID: [id number] Author: DAKOTA SMITH MD Service: Otolaryngology Author Type: Resident Type: Brief Op Note Filed: 06/18/2023 15:30 Note Text: BRIEF OPERATIVE NOTE Otorhinolaryngology LOG ID: [id number] Surgery / Procedure Date: 06/18/2023 Incision / Procedure Start Time: 12:35 PM Incision Close / Procedure End Time: 3:17 PM Procedure(s): Procedure(s) and Anesthesia Type: * THYROIDECTOMY TOTAL - General Total thyroidectomy with removal of substernal goiter Parathyroid autoimplantation into SCM x2 CROW-AF parathyroid detection Surgeon(s) / Proceduralist(s) and Tower Operator(s): Surgeon(s) and Role: * Yandel Daniel MD - Primary * Dakota Smith MD - Resident - Assisting No Additional Staff Anesthesia: General Findings: bilateral rlns stimulating well throughout and at end of case Estimated Blood Loss: 40 mLs Drains: left neck COURTNEY x1 Specimen(s): ID Type Source Tests Collected by Time Destination A : Left substernal goiter Tissue THYROID LOBE LEFT SURGICAL PATHOLOGY Yandel Daniel MD 06/18/2023 1:50 PM B : Right substernal goiter Tissue THYROID LOBE RIGHT SURGICAL PATHOLOGY Yandel Daniel MD 06/18/2023 2:37 PM Implant(s): * No implants in log * Complications: None Pre-Op / Pre-Procedure Diagnosis: Pre-Op Diagnosis Codes: * Nontoxic multinodular goiter [E04.2] Post-Op / Post-Procedure Diagnosis: Same Post-Op Plans: 23 hour stay Post procedure signout was performed. Dakota Smith MD Head and Neck Surgery PGY-4 06/18/2023 3:29 PM Click to page Please page [phone] after 5pm and on weekends Normal [facility] CONSULT PROGon 06-18-2023 CONSULT PROG HNO ID: [id number] Author: LYDIA MACK [facility] Service: Pharmacy Author Type: Pharmacist Type: Consult Progress Note Filed: 06/18/2023 19:32 Note Text: PHARMACY PROGRESS NOTE Patient Name: Gail Almeida Admission Date: 06/18/2023 Date of Consult: 06/18/2023 Time of Consult: 7:31 PM In accordance with the pharmacy dose optimization service, the following medication changes have been made: Medication Dose Frequency Indication Assessment/Plan Famotidine 20mg qd GERD Order has been modified to standard dosing based on prescribed indication and estimated renal function: CrCl 48 Medications opted-in to the pharmacy dose optimization service (From admission, onward) Start Ordered 06/18/23 2100 famotidine 20 mg tab(s) (PEPCID) 2 TIMES DAILY Question: Pharmacist may modify dose per [facility] dose optimization consult agreement Answer: Yes 06/18/23 1911 06/18/23 1600 ceFAZolin iv piggyback 2 g in D5W (iso-osmotic) 100 mL (ANCEF) EVERY 8 HOURS Question Answer Comment Antimicrobial indication Prophylaxis Pharmacist may modify dose per [facility] dose optimization consult agreement Yes 06/18/23 1555 For medications which dose is dependent on renal function, a pharmacist will monitor renal function daily and adjust doses accordingly. Any dose adjustments needed based on changes in indication will require an LIP to enter a new order. Managing Pharmacist: Lydia Mack RPh, available at: Ext [phone] If you have any questions, please contact Pharmacy at Ext [phone]. CrCl cannot be calculated (Patient's most recent lab result is older than the maximum 14 days allowed.). Serum creatinine and eGFR results 72 hours No lab values to display. Allergies: ALLERGIES Allergen Reactions Aspirin Other: See Comments Shock Barbituates [Barbit* Unknown Codeine Unknown Demerol [Meperidine] Unknown Fluoxetine Unknown Ibuprofen Unknown Penicillins Other: See Comments Turns blue Sulfa (Sulfonamide * Intolerance bad taste/odor Last 3 Encounter Wt Readings: Date: Wt: 05/30/2023 65 kg (143 lb 4.8 oz) 04/11/2023 65 kg (143 lb 4.8 oz) Last 1 Encounter Ht Readings: Date: Ht: 05/30/2023 160 cm (5' 3 ) Temp (24hrs), Av.2 ?C (97.2 ?F), Min:36 ?C (96.8 ?F), Max:36.5 ?C (97.7 ?F) - Current Temp: 36.5 ?C (97.7 ?F) Lydia Mack RPh June 18, 2023 7:31 PM Normal [facility] Calcium.ionized [Moles/Vol]o n 06-18-2023 Calcium.ionized (Bld) [Mass/Vol] 1.40 mmol/L High 1.08-1.30 [facility] Comment on above: Order Comment: Poi espino Type: BLOOD SPECIMEN Ordering Facility: [facility] Address: [address] [place] [address] Performed By: #### 1 995-0 #### [facility] CLIA [id number] [address] [place], [place] [address] [place] [address] [place] Calcium.ionized adjusted to pH 7.4 (Bld) [Moles/Vol] 1.30 mmol/L Normal 1.08-1.30 [facility] Comment on above: Order Comment: Pio espino Type: BLOOD SPECIMEN Ordering Facility: [facility] Address: [address] [place] [address] Performed By: #### 1 995-0 #### [facility] CLIA [id number] [address] [place] [address] [place] [address] [place] NURSING PROGon 06-18-2023 NURSING PROG HNO ID: [id number] Author: ALETHEA OLIVEROS RN Service: Nursing Author Type: Registered Nurse Type: Nursing Progress Note Filed: 06/18/2023 19:22 Note Text: Pt takes Moneta at nite. Rn paged BEENA conformal pad former to make aware. Awaiting orders. Continue to monitor Normal [facility] NURSING PROG HNO ID: [id number] Author: ALETHEA OLIVEROS RN Service: Nursing Author Type: Registered Nurse Type: Nursing Progress Note Filed: 06/18/2023 19:09 Note Text: Admission/Transfer Note PATIENT NAME: Gail Almeida Patient Location: Main - Periop OR/Main - Periop OR Room: Main - Periop OR (Main Pre/Post) Patient admitted from PACU via stretcher in stable condition. Actions taken: Patient oriented to room, call light function, prescribed activities, Patient rights, and Quiet at night. This note was completed by: Alethea Oliveros Normal [facility] OPERATIVE NOon 06-18-2023 OPERATIVE NO HNO ID: [id number] Author: YANDEL DANIEL MD Service: Otolaryngology Author Type: Physician Type: Operative Report Filed: 06/19/2023 14:16 Note Text: [place] [address] or ([phone]) [facility] F O R M A T I O N -------- OPERATIVE REPORT Patient Name: Gail Almeida Date of : 1955 Log ID: [id number] Date: 06/18/2023 Surgeon:Yandel Daniel MD Resident Surgeon(s): Dakota Smith MD Procedure(s) Performed: Total thyroidectomy with removal of substernal goiter Parathyroid exploration with autotransplantation into bilateral sternocleidomastoid muscle Use of near infrared autofluorescence detection of parathyroid Use of NIMS nerve monitoring Preoperative Diagnosis: Nontoxic multinodular goiter [E04.2] Postoperative Diagnosis: Same as above Anesthesia: General Incision/Procedure Start Time: 12:35 PM Incision Close/Procedure End Time: 3:17 PM Estimated Blood Loss: 40 mL(s). Complications: None Implants: * No implants in log * Drains: left neck COURTNEY x1 Specimens: ID Type Source Tests Collected by Time Destination A : Left substernal goiter Tissue THYROID LOBE LEFT SURGICAL PATHOLOGY Yandel Daniel MD 06/18/2023 1:50 PM B : Right substernal goiter Tissue THYROID LOBE RIGHT SURGICAL PATHOLOGY Yandel Daniel MD 06/18/2023 2:37 PM Operative Findings: Significantly enlarged bilateral thyroid goiter, left thyroid lobe ~10x5cm, right thyroid lobe 9x3cm Inferior parathyroid preserved with good vascularization on left, superior parathyroid preserved with good vascularization on right Left superior parathyroid autotransplanted to left SCM, right inferior parathyroid autotransplanted to right SCM Bilateral recurrent laryngeal nerves stimulating well bilaterally Indications for Surgery: Gail Almeida is a 67 year old female with enlarged thyroid goiter causing compressive symptoms who presents for the above. Procedure in Detail: The patient was brought to the operating room from the preoperative area. A preoperative huddle was performed and the patient was identified by the name and date of . The procedure to be performed was confirmed with all the personnel involved. The patient was then placed under general anesthesia by the Anesthesia team. she was intubated using a NIMS endotracheal tube. Nerve monitoring was confirmed to be functioning at the beginning of the case and used throughout the case. An incision below the cricoid cartilage was then marked, about 10 cm in length, and then injected with 1% lidocaine with 1:100,000 epinephrine after application of an alcohol swab. The patient was prepped and draped in the usual sterile fashion. A preoperative time-out was then performed. A 10 blade was used to make an incision at the site of the previously marked crease down through the platysma. Subplatysmal flaps were raised to the superior extent of the goiter superiorly and down to the sternal notch inferiorly. The midline raphae was was bisected so the strap musculature could be at midline. We began the dissection on the left side. The sternohyoid and sternothyroid musculature was identified and retracted laterally to visualize thyroid lobe. To gain exposure to the large superior extent of the goiter, the superior portion of the straps were divided. There did not appear to be gross invasion into the muscle. The musculature was carefully dissected off of the thyroid lobe. Dissection was undertaken using a combination of the harmonic scalpel and bipolar cautery to try and mobilize the thyroid lobe, first superiorly and then inferiorly. The large goiter was retracted medially and able to be freed sufficient to partially deliver the mass out of the neck. The superior then inferior pole vessels were carefully taken down. Bipolar cauterization was used as necessary for meticulous hemostasis. The inferior parathyroid was visualized and confirmed with CROW AF probe and carefully dissected off of the thyroid gland with preservation of the vascular supply. The thyroid lobe was retracted medially. Dissection on the perithyroid sheath was undertaken with ultimate identification of the recurrent laryngeal nerve. With meticulous dissection taking extra care to avoid any injury to the recurrent laryngeal nerve, the thyroid lobe was then then dissected free from surrounding tissue superiorly and inferiorly and ultimately off of the ligament of Garcia and trachea. The isthmus was divided and the specimen examined. There was a superior parathyroid evident on the specimen confirmed with autofluorescence probe. This was morcellated and placed into the left SCM and marked with 3 medium clips. Specimen was then sent for permanent pathology. (more content not included)... Normal [facility] SURGICAL PATHOLOGYon 024 CASE REPORT Normal [facility] Comment on above: Order Comment: Speci men Type: BLOOD SPECIMEN Ordering Facility: [facility] Address: [address] [place] [address] [place] [address] Result Comment: Surg ical Pathology Report Case: [id number] Authorizing Provider: Yandel Daniel MD Collected: 06/18/2023 01:50 PM Ordering Location: Admitting Received: 06/18/2023 02:57 PM Pathologist: Iliana Marti MD Specimens: A) - THYROID LOBE LEFT, Left substernal goiter B) - THYROID LOBE RIGHT, Right substernal goiter Performed By: #### 1 995-0 #### [facility] CLIA [id number] [address] [place] [address] [place] CLINICAL HISTORY Normal [facility] Comment on above: Order Comment: Pio espino Type: BLOOD SPECIMEN Ordering Facility: [facility] Address: [address] [place] [address] Result Comment: Pre- op diagnosis: Nontoxic multinodular goiter [E04.2] Performed By: #### 1 995-0 #### [facility] CLIA [id number] [address] [place] [address] STATES OF [facility] DIAGNOSIS COMMENT Multiple deeper leve ls have been performed on block A2 and examined and support the above diagnosis. Normal [facility] Comment on above: Order Comment: Pio espino Type: BLOOD SPECIMEN Ordering Facility: [facility] Address: [address] [place] [address] Performed By: #### 1 995-0 #### [facility] CLIA [id number] [address] [place] [address] FINAL DIAGNOSIS Normal [facility] Comment on above: Order Comment: Pio espino Type: BLOOD SPECIMEN Ordering Facility: [facility] Address: [address] [place] [address] Result Comment: A,B. 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 - No parathyroid glands or lymph nodes were identified. - Negative for malignancy. Performed By: #### 1 995-0 #### [facility] CLIA [id number] [address] [place] [address] [place] FINAL PERFORMING LAB Normal [facility] Comment on above: Order Comment: Speci men Type: BLOOD SPECIMEN Ordering Facility: [facility] Address: [address] [place] [address] Result Comment: Diag nostic interpretation performed at [place] [address] CLIA# [id number] Child And Family Therapist: Adonis Dukes M.D. Performed By: #### 1 995-0 #### [facility] CLIA [id number] [address] [place] [address] STATES OF [facility] GROSS DESCRIPTION Normal [facility] Comment on above: Order Comment: Speci men Type: BLOOD SPECIMEN Ordering Facility: [facility] Address: [address] [place] [address] Result Comment: A. T HYROID LOBE LEFT Labeled: Thyroid lobe left Specimen received: Formalin Specimen type: Total thyroidectomy without attached skeletal muscle, lymph nodes, AND / OR large vessels Oriented: No Weight: 154.35 g Size: 11.5 x 8.2 x 4.1 cm Left lobe: 8.2 7.2 x 4.1 cm Isthmus: 5.5 x 2.5 x 1.9 cm Ink code: Blue- External surface [place] - Isthmus Sectioning: The specimen is serially sectioned from superior to inferior. Number of discrete nodules: 0 Background thyroid parenchyma: Multicystic, fleshy containing hemorrhagic fluid with areas of calcification. Attached skeletal muscle: Not identified Attached lymph nodes: Not identified Attached parathyroid: Not identified Gross photograph: Yes Cassette Code: A1-A2: Safety Deposit Supervisor sections from left thyroid lobe A3: Safety Deposit Supervisor section of the isthmus Gross examination performed at [facility], [address] [place] [address] CLIA # [id number] 06/19/23 1:55 PM B. THYROID LOBE RIGHT Labeled: Thyroid lobe Right Specimen received: Formalin Specimen type: Total thyroidectomy without attached skeletal muscle, lymph nodes, AND / OR large vessels Oriented: No Weight: 75.2 g Size: Right lobe: 9.5 x 4.5 x 3.1 cm Ink code: Black- External surface [place] - Isthmus resection margin Sectioning: The specimen is serially sectioned from superior to inferior. Number of discrete nodules: 0 Background thyroid parenchyma: Multicystic, fleshy containing hemorrhagic fluid. Attached skeletal muscle: Not identified Attached lymph nodes: Not identified Attached parathyroid: Not identified Gross photograph: Yes Cassette Code: B1-B2: Safety Deposit Supervisor sections of the right thyroid lobe Gross examination performed at [facility], [address] [place] [address] CLIA # [id number] 06/19/23 1:55 PM Performed By: #### 1 995-0 #### [facility] CLIA [id number] [address] [place] [address] [place] [address] [place] Basic metabolic 2000 panelon 05-30-2023 Anion gap [Moles/Vol] 10 mmol/L Normal 9-18 [facility] Comment on above: Order Comment: Speci men Type: BLOOD SPECIMEN Ordering Facility: [facility] Address: [address] [place] [address] Performed By: #### 2 4321-2 #### [facility] [place] [id number] [address] [place] [address] [place] Calcium [Mass/Vol] 8.9 mg/dL Normal 8.5-10.2 [facility] Comment on above: Order Comment: Speci men Type: BLOOD SPECIMEN Ordering Facility: [facility] Address: [address] [place] [address] Performed By: #### 2 4321-2 #### [facility] CLIA [id number] [address] [place] [address] [place] Chloride [Moles/Vol] 105 mmol/L Normal 97-105 [facility] Comment on above: Order Comment: Speci men Type: BLOOD SPECIMEN Ordering Facility: [facility] Address: [address] [place] [address] Performed By: #### 2 4321-2 #### [facility] CLIA [id number] [address] [place] [address] [place] CO2 [Moles/Vol] 21 mmol/L Low 22-30 [facility] Comment on above: Order Comment: Speci men Type: BLOOD SPECIMEN Ordering Facility: [facility] Address: [address] [place] [address] Performed By: #### 2 4321-2 #### [facility] CLIA [id number] [address] [place] [address] [place] Creatinine [Mass/Vol] 1.03 mg/dL High 0.58-0.96 [facility] Comment on above: Order Comment: Speci men Type: BLOOD SPECIMEN Ordering Facility: [facility] Address: [address] [place] [address] Performed By: #### 2 4321-2 #### [facility] CLIA [id number] [address] [place] [address] [place] Creatinine and Glomerular filtration rate.predicted panel (S/P/Bld) 60 mL/min/1.73m??? Normal >=60 [facility] Comment on above: Order Comment: Christianoi men Type: BLOOD SPECIMEN Ordering Facility: [facility] Address: [address] [place] [address] Result Comment: Leanna mated Glomerular Filtration Rate (eGFR) is calculated using the 2020 CKD-EPI creatinine equation. This equation utilizes serum creatinine, sex, and age as parameters. The creatinine assay has traceable calibration to isotope dilution-mass spectrometry. Refer to KDIGO guidelines for clinical interpretation. In patients with unstable renal function, e.g. those with acute kidney injury, the eGFR may not accurately reflect actual GFR. Performed By: #### 2 4321-2 #### [facility] CLIA [id number] [address] [place] [address] [place] Glucose [Mass/Vol] 96 mg/dL Normal 74-99 [facility] Comment on above: Order Comment: [facility] Type: BLOOD SPECIMEN Ordering Facility: [facility] Address: [address] [place] [address] Result Comment: The [place] [employer] (ADA) provides guidance for cutoff values for fasting glucose and random glucose. The ADA defines fasting as no caloric intake for at least 8 hours. Fasting plasma glucose results between 100 to 125 mg/dL indicate increased risk for diabetes (prediabetes). Fasting plasma glucose results greater than or equal to 126 mg/dL meet the criteria for diagnosis of diabetes. In the absence of unequivocal hyperglycemia, results should be confirmed by repeat testing. In a patient with classic symptoms of hyperglycemia or hyperglycemic crisis, random plasma glucose results greater than or equal to 200 mg/dL meet the criteria for diagnosis of diabetes. Reference: Standards of Medical Care in Diabetes 2016, [place] [employer] Association. Diabetes Care. 2016.39(Suppl 1). Performed By: #### 2 4321-2 #### [facility] CLIA [id number] [address] [place] [address] [place] Potassium [Moles/Vol] 4.6 mmol/L Normal 3.7-5.1 [facility] Comment on above: Order Comment: Pio espino Type: BLOOD SPECIMEN Ordering Facility: [facility] Address: [address] [place] [address] Performed By: #### 2 4321-2 #### [facility] IA [id number] [address] [place] [address] [place] Sodium [Moles/Vol] 136 mmol/L Normal 136-144 [facility] Comment on above: Order Comment: Pio espino Type: BLOOD SPECIMEN Ordering Facility: [facility] Address: [address] [place] [address] Performed By: #### 2 4321-2 #### [facility] CLIA [id number] [address] [place] [address] [place] Urea nitrogen [Mass/Vol] 28 mg/dL High 7-21 [facility] Comment on above: Order Comment: Pio espino Type: BLOOD SPECIMEN Ordering Facility: [facility] Address: [address] [place] [address] Performed By: #### 2 4321-2 #### [facility] IA [id number] [address] [place] [address] [place] CBC panel Auto (Bld)on 05-30 Erythrocyte distribution width (RBC) [Ratio] 13.0 % Normal 11.5-15.0 [facility] Comment on above: Order Comment: Speci men Type: BLOOD SPECIMEN Ordering Facility: [facility] Address: [address] [place] [address] Performed By: #### 5 8410-2 #### [facility] CLIA [id number] [address] [place], [place] [id number] [place] [address] OF [facility] Hematocrit (Bld) [Volume fraction] 38.6 % Normal 36.0-46.0 [facility] Comment on above: Order Comment: Speci men Type: BLOOD SPECIMEN Ordering Facility: [facility] Address: [address] [place] [address] Performed By: #### 5 8410-2 #### [facility] CLIA [id number] [place] [id number] [place] [address] [place] Hemoglobin (Bld) [Mass/Vol] 12.2 g/dL Normal 11.5-15.5 [facility] Comment on above: Order Comment: Speci men Type: BLOOD SPECIMEN Ordering Facility: [facility] Address: [address] [place] [address] Performed By: #### 5 8410-2 #### [facility] CLIA [id number] [place] [address] [place] MCH (RBC) [Entitic mass] 31.3 pg Normal 26.0-34.0 [facility] Comment on above: Order Comment: Speci men Type: BLOOD SPECIMEN Ordering Facility: [facility] Address: [address] [place] [address] Performed By: #### 5 8410-2 #### [facility] CLIA [id number] [address] [place] [address] [place] MCHC (RBC) [Mass/Vol] 31.6 g/dL Normal 30.5-36.0 [facility] Comment on above: Order Comment: Speci men Type: BLOOD SPECIMEN Ordering Facility: [facility] Address: [address] [place] [address] Performed By: #### 5 8410-2 #### [facility] CLIA [id number] [place] [address] [place] [address] [place] MCV (RBC) [Entitic vol] 99.0 fL Normal 80.0-100.0 [facility] Comment on above: Order Comment: Speci men Type: BLOOD SPECIMEN Ordering Facility: [facility] Address: [address] [place] [address] Performed By: #### 5 8410-2 #### [facility] CLIA [id number] [address] [place] [address] [place] Nucleated RBC (Bld) [#/Vol] 10*3/uL Normal <0.01 [facility] Comment on above: Order Comment: Speci men Type: BLOOD SPECIMEN Ordering Facility: [facility] Address: [address] [place] [address] Performed By: #### 5 8410-2 #### [facility] IA [id number] [address] [place] [address] [place] Platelet mean volume (Bld) [Entitic vol] 9.9 fL Normal 9.0-12.7 [facility] Comment on above: Order Comment: Speci men Type: BLOOD SPECIMEN Ordering Facility: [facility] Address: [address] [place] [address] Performed By: #### 5 8410-2 #### [facility] IA [id number] [address] [place] [address] [place] Platelets (Bld) [#/Vol] 254 10*3/uL Normal 150-400 [facility] Comment on above: Order Comment: Speci men Type: BLOOD SPECIMEN Ordering Facility: [facility] Address: [address] [place] [address] Performed By: #### 5 8410-2 #### [facility] IA [id number] [address] [place] [address] [place] RBC (Bld) [#/Vol] 3.90 10*6/uL Normal 3.90-5.20 [facility] Comment on above: Order Comment: Speci men Type: BLOOD SPECIMEN Ordering Facility: [facility] Address: [address] [place] [address] Performed By: #### 5 8410-2 #### [facility] CLIA [id number] [address] [place] [address] [place] WBC (Bld) [#/Vol] 5.78 10*3/uL Normal 3.70-11.00 [facility] Comment on above: Order Comment: Speci men Type: BLOOD SPECIMEN Ordering Facility: [facility] Address: [address], [place] [address] Performed By: #### 5 8410-2 #### [facility] CLIA [id number] [address] [place] [address] [facility] CNOVon 05-30-2023 CNOV Office Visit (OTOLMN ) -------- GAIL ALMEIDA ([id number]) 1955 F Date Time Provider Department 05/30/23 1:00 PM YANDEL DANIEL OTCOURT During your visit today, we recorded the following information about you: Pattie Yadav Ma 05/30/2023 12:58 PM Signed Tobacco Use: .25 packs/day, for 40 years. Types: Cigarettes Was smoking cessation packet given? Yes - Patient received smoking cessation packet at previous [facility] office visit. Was a referral initiated?Patient declined. Yandel Daniel MD 05/30/2023 2:42 PM Signed [facility] Note CC: Preoperative appointment HPI: Gail Almeida is a 67 year old female presenting with history of schizoaffective disorder, bipolar disorder, COPD that presents with thyroid enlargement. She is scheduled for total thyroidectomy on 06/18/2023. She saw [facility] today and is all clear for surgery. Current Outpatient Medications Medication Sig Dispense Refill acidophilus-pectin, citrus 100 million cell-10 mg cap Take by mouth. Fluticasone Furoate 27.5 mcg/actuation nasal spray Use 2 Sprays in each nostril once daily. mecobalamin (B12 ACTIVE ORAL) Take 800 mcg by mouth once daily. amantadine HCl (SYMMETREL) 100 mg capsule Take 100 mg by mouth two times a day. benzonatate (TESSALON PERLE) 100 mg capsule Take 100 mg by mouth once daily. benztropine (COGENTIN) 0.5 mg tablet Take 0.5 mg by mouth two times a day. cloNIDine HCl (CATAPRES) 0.1 mg tablet Take 0.1 mg by mouth once daily. docusate sodium (COLACE) 100 mg capsule Take 100 mg by mouth once daily. folic acid 800 mcg tablet Take 800 mcg by mouth once daily. lithium carbonate (ESKALITH) 150 mg capsule Take 150 mg by mouth two times a day with meals. loratadine (CLARITIN) 10 mg tablet Take 10 mg by mouth once daily. meloxicam (MOBIC) 15 mg tablet Take 15 mg by mouth once daily. QUEtiapine XR (SEROQUEL XR) 400 mg 24 hr tablet Take 400 mg by mouth daily at bedtime. RISPERDAL CONSTA 25 mg/2 mL injection Inject 25 mg intramuscularly every 2 weeks. topiramate (TOPAMAX) 25 mg tablet Take 25 mg by mouth once daily. famotidine (PEPCID) 20 mg tablet Take 20 mg by mouth two times a day. albuterol HFA (PROVENTIL HFA, VENTOLIN HFA) 90 mcg/actuation inhaler Inhale 1 Puff as instructed as needed. OYSTER SHELL CALCIUM-VITAMIN D 500 mg-5 mcg (200 unit) per tablet WIXELA INHUB 250-50 mcg/dose inhaler Inhale 1 Puff as instructed two times a day. MUCUS DM 30-600 mg per tablet Take 1 tablet by mouth every 12 hours as needed. xsyrrt-fqmhnoqu-xgvbyts (ENZADYNE) 9,000-112,500- 112,500 unit capsule Take 1 capsule by mouth daily with food. nystatin (MYCOSTATIN) cream Apply to affected area two times a day. OLANZapine (ZYPREXA) 5 mg tablet Take 5 mg by mouth every 12 hours as needed. No current facility-administered medications for this visit. EXAM: Constitutional - General Appearance: well developed, well nourished, without obvious deformities Communication: speaks with a normal voice without hoarseness Head AND Face - Overall: no obvious scars, lesions or masses Facial strength: normal and equal bilaterally Oral Cavity and oropharynx: mucosa, hard and soft palates, tongue, tonsil area, posterior pharyngeal wall, lips and gums are without lesions Neck: large palpable thyroid, L > R Neuro: CN III - CN XII grossly intact RADIOLOGY: 05/30/23 CT Neck RESULT: There is prominent heterogeneous enlargement of the thyroid gland compatible with goiter, largest on the left side. It contains multifocal hypoenhancing cystic components, and a calcified nodule anteriorly. Maximal orthogonal measurements of the left lobe are 10.5 SI by 5.1L are by 4.3 AP centimeters. Maximal orthogonal measurements of the right lobe are 10.2 SI by 3.3 LR by 3.7 AP centimeters. The isthmus is also abnormally thickened at 2.2 cm. Inferiorly the thyroid gland extends greatest on the right down to the level of the left subclavian vein. Superiorly it extends to the level of the hyoid. There is near total encirclement of the thyroid cartilage, without compressive or invasive affects. The margins are all well-defined with no suggestion of invasiveness. More inferiorly there is mild left right narrowing of the trachea. Inferior views of the brain are within normal limits. The globes and orbits are symmetric and normal. The paranasal sinuses, mastoid air cells and middle ear chambers are all clear. The nasal cavity and nasopharynx are normal. The oral cavity is unremarkable. The hypopharynx shows mild midline shift to the left due to the goiter. Accounting for technique the major cervical vessels maintain normal course and caliber, with some posterior displacement due to the goiter, but no encirclement. Views of the lung apices show some minor dependent changes. Is no suspicious osseous lesion. There is no lymphadenopathy or soft tissue mass ASSES (more content not included)... Normal [facility] CT NECK SOFT TISSUE W IVCONo n 05-30-2023 CT NECK SOFT TISSUE W IVCON * * *Final Report* * * DATE OF EXAM: May 30 2023 10:30AM [facility] 0013 - CT NECK SOFT TISSUE W IVCON / PROCEDURE REASON: Nontoxic multinodular goiter * * * * Physician Interpretation * * * * HISTORY: Nontoxic multinodular goiter. TECHNIQUE: Routine CT neck with contrast, for which 75 cc of Omnipaque [address] Dose-Length Product (DLP): 305 mGy*cm. CT Dose Reduction Employed:Yes. Radiation Shielding Employed: N/A. COMPARISON: None. RESULT: There is prominent heterogeneous enlargement of the thyroid gland compatible with goiter, largest on the left side. It contains multifocal hypoenhancing cystic components, and a calcified nodule anteriorly. Maximal orthogonal measurements of the left lobe are 10.5 SI by 5.1L are by 4.3 AP centimeters. Maximal orthogonal measurements of the right lobe are 10.2 SI by 3.3 LR by 3.7 AP centimeters. The isthmus is also abnormally thickened at 2.2 cm. Inferiorly the thyroid gland extends greatest on the right down to the level of the left subclavian vein. Superiorly it extends to the level of the hyoid. There is near total encirclement of the thyroid cartilage, without compressive or invasive affects. The margins are all well-defined with no suggestion of invasiveness. More inferiorly there is mild left right narrowing of the trachea. Inferior views of the brain are within normal limits. The globes and orbits are symmetric and normal. The paranasal sinuses, mastoid air cells and middle ear chambers are all clear. The nasal cavity and nasopharynx are normal. The oral cavity is unremarkable. The hypopharynx shows mild midline shift to the left due to the goiter. Accounting for technique the major cervical vessels maintain normal course and caliber, with some posterior displacement due to the goiter, but no encirclement. Views of the lung apices show some minor dependent changes. Is no suspicious osseous lesion. There is no lymphadenopathy or soft tissue mass Master Motorcycle Technician (topogram) images: No additional findings. IMPRESSION: LARGE GOITER DETAILED Locker Room Attendant: PSCB Transcribe Date/Time: May 30 2023 11:42A Dictated by : JOBY VILLAFUERTE MD This examination was interpreted and the report reviewed and electronically signed by: JOBY VILLAFUERTE MD on May 30 2023 11:47AM EST [id number] Normal [facility] HISTORY PHYSICALon HISTORY PHYSICAL HNO ID: [id number] Author: Kristen Avalos PA-C Service: ? Author Type: Physician Tower Operator Type: HANDP Filed: 06/04/2023 1:48 PM Note Text: HISTORY AND PHYSICAL EXAMINATION SERVICE DATE: 05/30/2023 SERVICE TIME: 8:56 AM PRIMARY CARE PHYSICIAN: No primary care provider on file. Assessment/Plan 1. Pre-op evaluation Surgery scheduled on 06/18/2023. 2. Current smoker 3-4 cigarettes a day. Smoked on and off for the last 40 years. 3. Asthma, unspecified asthma severity, unspecified whether complicated, unspecified whether persistent 4. Chronic obstructive pulmonary disease, unspecified COPD type (HCC) Environmental induced. Taking Wixela inhaler daily. Rarely uses rescue albuterol inhaler. Denies any SOB, AARON, cough, wheezing. Lungs CTAB and SpO2 100% RA. PCP following, stable. 5. Hypertension, unspecified type BP 115/79. Taking clonidine (Catapres). Denies any CP, dizziness, double vision, or AARON. Patient has known bifascicular block. States she follows with cardiology in [place], [place], but patient poor historian so unable to give me his name. Stable. 6. Gastroesophageal reflux disease, unspecified whether esophagitis present Stable on famotidine (Pepcid) 7. Prediabetes Patient states she has been worked up for diabetes in the past and negative. No current medications, will get HgbA1c today. 05/31/23: HgbA1c 5.1. 8. Bipolar affective disorder, remission status unspecified (HCC) Stable on multiple Rx medications. ANESTHESIA FINDINGS: Intubation History: No history of difficult intubation Significant Anesthesia Considerations: None Airway Exam: General: Normal appearance Mallampati Score is CLASS II ULBT: Class II - Lower incisors can bite the upper lip below the hoda line Neck: Normal appearance and function, Distance from hyoid to mentum during neck extension is at least 3 finger breaths Mouth: Normal tongue size and Mouth opening greater than 2 finger breaths Dentition: Upper denture, no teeth on bottom Airway History: No abnormal airway history STOP BANG Score: Criteria: Hypertension Age over 50 (67 year old) Score = 2 REASON FOR VISIT: Gail Almeida is a 67 year old female who is scheduled for THYROIDECTOMY TOTAL at the request of Dr. Yandel Daniel for consultation. My final recommendation will be communicated back to the requesting physician by way of shared medical record or letter. The patient has the following: There is no problem list on file for this patient. Subjective CHIEF COMPLAINT: nontoxic multinodular goiter HPI: Patient is a 67 year old female presenting to pre-anesthesia consultation. Patient has had a known thyroid goiter for the last year that is getting larger. She denies any pain, difficulty swallowing, or limitation in her ROM. She has been diagnosed with nontoxic multinodular goiter and has been recommended for the above surgery. History reviewed. No pertinent past medical history. PAST SURGICAL HISTORY Procedure Laterality Date COLONOSCOPY SCREENING OVARIAN CYSTECTOMY PAST SURGICAL HISTORY OF Left breast lumpectomy- benign TOTAL ABDOM HYSTERECTOMY FAMILY HISTORY Problem Relation Age of Onset Breast Cancer Mother Prostate Cancer Father other (kidney cancer) Father SOCIAL HISTORY: Social History Tobacco Use Smoking status: Every Day Packs/day: 0.25 Years: 40.00 Additional pack years: 0.00 Total pack years: 10.00 Types: Cigarettes Smokeless tobacco: Never Tobacco comments: 3-4 cigarettes a day Substance Use Topics Alcohol use: Never Drug use: Never MEDICATIONS: Prior to Admission medications as of 05/30/23926 Medication Sig Last Dose Taking acidophilus-pectin, citrus 100 million cell-10 mg cap Take by mouth. Taking Yes Fluticasone Furoate 27.5 mcg/actuation nasal spray Use 2 Sprays in each nostril once daily. Taking Yes mecobalamin (B12 ACTIVE ORAL) Take 800 mcg by mouth once daily. Taking Yes amantadine HCl (SYMMETREL) 100 mg capsule Take 100 mg by mouth two times a day. Taking Yes benzonatate (TESSALON PERLE) 100 mg capsule Take 100 mg by mouth once daily. Taking Yes benztropine (COGENTIN) 0.5 mg tablet Take 0.5 mg by mouth two times a day. Taking Yes cloNIDine HCl (CATAPRES) 0.1 mg tablet Take 0.1 mg by mouth once daily. Taking Yes docusate sodium (COLACE) 100 mg capsule Take 100 mg by mouth once daily. Taking Yes folic acid 800 mcg tablet Take 800 mcg by mouth once daily. Taking Yes lithium carbonate (ESKALITH) 150 mg capsule Take 150 mg by mouth two times a day with meals. Taking Yes loratadine (CLARITIN) 10 mg tablet Take 10 mg by mouth once daily. Taking Yes meloxicam (MOBIC) 15 mg tablet Take 15 mg by mouth once daily. Taking Yes QUEtiapine XR (SEROQUEL XR) 400 mg 24 hr tablet Take 400 mg by mouth daily at bedtime. Taking Yes RISPERDAL CONSTA 25 mg/2 mL injection Inject 25 mg intramuscularly every 2 weeks. Taking Yes topiramate (more content not included)... Normal [facility] HbA1c (Bld)on 05-30-2023 Average glucose Estimated from glycated hemoglobin (Bld) [Mass/Vol] 100 mg/dL Normal [facility] Comment on above: Order Comment: Pio espino Type: BLOOD SPECIMEN Ordering Facility: [facility] Address: [address] [place] [address] Result Comment: eAG: (Estimated average glucose) is a calculated value from HgbA1c and is dental sales representative of the average blood glucose level in the last 2-3 month period. Performed By: #### 5 5454-3 #### [facility] CLIA [id number] [address] [place] [address] [place] HbA1c (Bld) [Mass fraction] 5.1 % Normal 4.3-5.6 [facility] Comment on above: Order Comment: Pio espino Type: BLOOD SPECIMEN Ordering Facility: [facility] Address: [address] [place] [address] Result Comment: [place] Diabetes Association guidelines indicate that patients with HgbA1c in the range 5.7-6.4% are at increased risk for development of diabetes, and intervention by lifestyle modification may be beneficial. HgbA1c greater or equal to 6.5% is considered diagnostic of diabetes. Performed By: #### 5 5454-3 #### [facility] CLIA [id number] [address] [place] [address] [place] NURSING PROGon 05-30-2023 NURSING PROG HNO ID: [id number] Author: Rody Sher RN Service: Nursing Author Type: Registered Nurse Type: Nursing Progress Note Filed: 05/30/2023 10:14 AM Note Text: Radiology Service Progress Note DATE OF SERVICE: May 30, 2023 TIME: 10:13 AM PATIENT WEIGHT: 143LBS PATIENT IDENTITY VERIFICATION COMPLETED USING TWO (2) STANDARD IDENTIFIERS: Name and Date of confirmed by patient verbally and Name and Date of confirmed by identification band. FALL SCREENING: Has the patient had 2 falls in the last year or 1 fall with injury or currently using an Ambulatory Assistive Device (Walker, Cane, Wheelchair, Crutches, etc.)? No PATIENT GENDER DATA: Female. status: : No status: NO. ALLERGIES: Reviewed and unchanged CONTRAST ALLERGY: No EXAM: CT -CONTRAST INDUCED NEPHROPATHY RISK FACTORS: Patient age > 60 years CREATININE: No results found for: CREAT , EGFROTH , EGFRAA P.O.C.T. RESULTS: POC done: Yes, See Lab Tab May 30, 2023 TREATMENT: N/A and No Hydration needed. IV SITE: Ambulatory: A peripheral IV was started in the Left antecubital site with a Angio cath: 20 gauge. IV SITE APPEARANCE: Clean,Dry and Intact SIGNATURE: Rody Sher RN PATIENT NAME: Gail Almeida DATE: May 30, 2023 TIME: 10:13 AM [facility] 04-11-2023 [facility] Office Visit (OESGMN ) -------- GAIL ALMEIDA ([id number]) 1955 F Date Time Provider Department 04/11/23 8:45 AM YANDEL DANIEL During your visit today, we recorded the following information about you: Yandel Daniel MD 04/12/2023 3:08 PM Signed Head and Neck Surgery New Patient History and Physical Patient: Gail Almeida Age: [age] year old Provider: Yandel Daniel MD Date of visit: 04/11/2023 Chief Complaint: Patient presents with: New Patient: Thyromegaly This consult was requested by No ref. provider found for an opinion regarding thyroid nodule. My final recommendations will be communicated to the requesting provider by way of shared EMR or letter via the [place] mail. History of Present Illness: Gail Almeida is a 67 year old female presenting with history of schizoaffective disorder, bipolar disorder, COPD that presents with thyroid enlargement. Enlargement started 6-7 months ago and has been consistently getting bigger. No difficulty swallowing or breathing. Denies changes in voice. Non tender. Patient has been on lithium for the last 30-40 years, and it works great for her. Patient is tolerating a full diet by mouth, maintaining their weight, and energy level is stable. She denies any history of dysphagia, odynophagia, dysphonia, throat pain, otalgia, cough, hemoptysis, epistaxis, dysarthria, trismus, dyspnea, fever, chills, night sweats, or unintentional weight loss. Risk Factors: She has no history of alcohol and abuse. Has been smoking on/off for over the last 40 years. She denies any exposure to radiation and has no significant sun exposure history. There is no family history of head and neck cancer. As stated on new patient questionnaire and update in the past medical history, past surgical history, medications, allergies, family history, social history, and review of systems below. For further details please see patient questionnaire scanned into [employer]. History: No past medical history on file. No past surgical history on file. No family history on file. Social History Tobacco Use Smoking status: Every Day Years: 40 Types: Cigarettes Smokeless tobacco: Never Current Medication: No current outpatient medications on file. No current facility-administered medications for this visit. Allergies: ALLERGIES Allergen Reactions Aspirin Other: See Comments Shock Barbituates [Barbit* Unknown Codeine Unknown Demerol [Meperidine] Unknown Fluoxetine Unknown Ibuprofen Unknown Penicillins Other: See Comments Turns blue Sulfa (Sulfonamide * Intolerance bad taste/odor Review of Systems - A 12-point review of systems was performed and negative except for previously noted. Please refer to the patient questionnaire scanned into [employer]. Physical Exam: Vitals - There were no vitals taken for this visit. Constitutional - General Appearance: Normocephalic and atraumatic. Well developed, well nourished. Communication: Speaks with a normal voice without hoarseness. Head AND Face - Overall: No obvious scars, lesions or masses. Parotid and submandibular glands: No masses bilaterally and without any asymmetry. Facial strength: Normal and equal bilaterally. Eyes - Pupils are round and reactive. Extraocular muscles grossly intact. Sclerae and conjunctivae noninjected and anicteric. Ear, Nose, Mouth AND Throat - Ears: No external deformities. Nasal exam: No external deformities. Mastication: There is no significant trismus. Oral Cavity: No mucosal lesions. Tongue is soft, midline, and mobile bilaterally. Floor of mouth is soft. Palate is intact and elevates symmetrically. Oropharynx: The oropharynx is clear and symmetric. The base of tongue is soft. No masses visualized or palpated. Neck: Significantly enlarged thyroid, approximately 3 inches, principally on L side, soft, nontender Skin - No edema, no discoloration, no ulceration, no masses or lesions. Respiratory - Normal work of breathing on room air. No stridor or abnormal breath sounds. Neurologic - General: Alert and oriented x 3. No obvious focal deficits. Cranial Nerves: II: Pupillary reflexes normal III, IV, : EOM normal V: 1,2,3: normal sensation VII: Normal strength in all divisions IX, X: Normal voice, palatal elevation and sensation XI: Shoulder strength normal XII: Tongue mobility normal Procedure: Review of Pathology and Radiologic Records and Images: Previous operative, pathology, and radiological reports and/or images were reviewed and filed in the permanent chart. This is notable for: CT neck 08/2021 Labs: Assessment: There is no problem list on file for this patient. Ms. Gail Almeida is a 67 year old female who presents with thyroid goiter in the context of long-standing lithium use for management of psychiatric disorders. Patient denie (more content not included)... [facility] D[facility] Tele[facility] (IMANI) -------- GAIL ALMEIDA ([id number]) 1955 F Date Time Provider Department 04/11/23 YANDEL DANIEL During your visit today, we recorded the following information about you: Radha Brice, RN 04/11/2023 10:20 AM Signed AMBULATORY PATIENT EDUCATION NOTE PRE-OP TEACHING TOPIC: SURVIVAL SKILLS: Preop PROCEDURE: Total thyroidectomy READINESS TO LEARN COGNITIVE ABILITY: Alert and oriented MOTIVATION TO LEARN: Interested FAMILY SUPPORT: Moderate - Family present but overwhelmed INSTRUCTION PROVIDED TO: Patient and friend/other PATIENT LEARNS BEST BY: Individual Instruction Written Instruction - Hand-outs Verbal Instruction FACTORS AFFECTING LEARNING: None PHYSICAL LIMITATIONS AFFECTING LEARNING: None LEARNING RESPONSE DIAGNOSIS: Total thyroidectomy METHOD OF INSTRUCTION: Individual instruction Written instruction - handouts Verbal instruction PATIENT / FAMILY RESPONSE: Verbalizes understanding of: PRE-OPERATIVE INSTRUCTIONS-Correct action to take to follow pre-operative instructions FOLLOW-UP PLAN: Patient instructed to call with any further issues SUPPLEMENTAL MATERIAL: Your Surgical Guide REFERRAL (RECOMMENDATION): PACC Electronically Signed By: Radha Brice RN In Department: OTOLARYNGOLOGY Allergies As of Date: 04/11/2023 Noted Allergy Reaction ASPIRIN 04/11/2023 14 - Other: See Comments Comments: Shock BARBITUATES (BARBITURATES) 04/11/2023 16 - Unknown CODEINE 04/11/2023 16 - Unknown DEMEROL (MEPERIDINE) 04/11/2023 16 - Unknown FLUOXETINE 04/11/2023 16 - Unknown IBUPROFEN 04/11/2023 16 - Unknown PENICILLINS 04/11/2023 14 - Other: See Comments Comments: Turns blue SULFA (SULFONAMIDE ANTIBIOTICS) 04/11/2023 5 - Intolerance Comments: bad taste/odor Date Reviewed: Never Reviewed Reason for Visit: Patient Education [91] Cmt: Preop Prescriptions as of 04/11/2023 - mecobalamin (B12 ACTIVE ORAL) Take 800 mcg by mouth once daily. - amantadine HCl (SYMMETREL) 100 mg capsule Take 100 mg by mouth two times a day. - benzonatate (TESSALON PERLE) 100 mg capsule Take 100 mg by mouth once daily. - benztropine (COGENTIN) 0.5 mg tablet Take 0.5 mg by mouth two times a day. - cloNIDine HCl (CATAPRES) 0.1 mg tablet Take 0.1 mg by mouth once daily. - docusate sodium (COLACE) 100 mg capsule Take 100 mg by mouth once daily. - folic acid 800 mcg tablet Take 800 mcg by mouth once daily. - lithium carbonate (ESKALITH) 150 mg capsule Take 150 mg by mouth two times a day with meals. - loratadine (CLARITIN) 10 mg tablet Take 10 mg by mouth once daily. - meloxicam (MOBIC) 15 mg tablet Take 15 mg by mouth once daily. - QUEtiapine XR (SEROQUEL XR) 400 mg 24 hr tablet Take 400 mg by mouth daily at bedtime. - RISPERDAL CONSTA 25 mg/2 mL injection Inject 25 mg intramuscularly every 2 weeks. - topiramate (TOPAMAX) 25 mg tablet Take 25 mg by mouth once daily. - famotidine (PEPCID) 20 mg tablet Take 20 mg by mouth two times a day. - albuterol HFA (PROVENTIL HFA, VENTOLIN HFA) 90 mcg/actuation inhaler Inhale 1 Puff as instructed as needed. - OYSTER SHELL CALCIUM-VITAMIN D 500 mg-5 mcg (200 unit) per tablet - acetaminophen (TYLENOL) 500 mg tablet - WIXELA INHUB 250-50 mcg/dose inhaler Inhale 1 Puff as instructed two times a day. - MUCUS DM 30-600 mg per tablet Take 1 tablet by mouth every 12 hours as needed. - vjsgzj-lopqmnjr-nsxwsft (ENZADYNE) 9,000-112,500- 112,500 unit capsule Take 1 capsule by mouth daily with food. - nystatin (MYCOSTATIN) cream Apply to affected area two times a day. - OLANZapine (ZYPREXA) 5 mg tablet Take 5 mg by mouth every 12 hours as needed. Problem List As Of Date: 04/11/2023 (None) Encounter Status:Closed by RADHA BRICE on 04/11/23 Normal [facility] Basic Metabolic Panelon 10-2 Anion gap [Moles/Vol] 11.7 mmol/L Normal 6.0-15.0 [facility] Comment on above: Performed By: #### V [id number], TSH3 wRFLX, T4F, LIPID #### [facility] [address] Calcium [Mass/Vol] 9.5 mg/dL Normal 8.6-10.3 [facility] Comment on above: Performed By: #### V [id number], TSH3 wRFLX, T4F, LIPID #### [facility] [address] Chloride [Moles/Vol] 115 mmol/L High 98-107 [facility] Comment on above: Performed By: #### V [id number], TSH3 wRFLX, T4F, LIPID #### [facility] [address] CO2 [Moles/Vol] 19.3 mmol/L Low 21.0-31.0 [facility] Comment on above: Performed By: #### V [id number], TSH3 wRFLX, T4F, LIPID #### [facility] [address] Creatinine [Mass/Vol] 0.96 mg/dL Normal 0.60-1.20 [facility] Comment on above: Performed By: #### V [id number], TSH3 wRFLX, T4F, LIPID #### [facility] [address] Creatinine Clr Calc Pharmacy 51.73 [facility] Comment on above: Result Comment: PERF ORMED BY: [place] [address] PATHOLOGIST GUILLOTINE TRIMMER GATO PEÑA M.D. Performed By: #### V [id number], TSH3 wRFLX, T4F, LIPID #### [address] GFR/1.73 sq M.predicted MDRD (S/P/Bld) [Vol rate/Area] mL/min/{1.73_m2} [facility] Comment on above: Performed By: #### V [id number], TSH3 wRFLX, T4F, LIPID #### [facility] [address] Glucose [Mass/Vol] 110 mg/dL High 70-100 [facility] Comment on above: Result Comment: [facility] Glucose Reference Range is dependent on time and content of last meal. Glucose of more than 200 mg/dL in a nonstressed, ambulatory subject supports the diagnosis of Diabetes Mellitus. ADA recommended reference range Performed By: #### V [id number], TSH3 wRFLX, T4F, LIPID #### [facility] [address] Potassium [Moles/Vol] 4.0 mmol/L Normal 3.5-5.1 [facility] Comment on above: Performed By: #### V [id number], TSH3 wRFLX, T4F, LIPID #### [facility] [address] Sodium [Moles/Vol] 142 mmol/L Normal 136-145 [facility] Comment on above: Performed By: #### V [id number], TSH3 wRFLX, T4F, LIPID #### [facility] [address] Urea nitrogen [Mass/Vol] 20 mg/dL Normal 7-25 [facility] Comment on above: Performed By: #### V [id number], TSH3 wRFLX, T4F, LIPID #### [facility] [address] Basophils Auto (Bld) [#/Vol] Ordered By: Mariana Pryor on 03-27-2023 Basophils (Bld) [#/Vol] 0.0 10*3/uL 0.0-0.2 [facility] Basophils/100 WBC Auto (Bld) Ordered By: Mariana Pryor on 03-27-2023 Basophils/100 WBC (Bld) 0.6 % . F [facility] Calcium [Mass/volume] in Ser um or PlasmaOrdered By: Mariana Pryor on 03-27-2023 Calcium [Mass/Vol] 9.5 mg/dL 8.6-10.3 [facility] Carbon dioxide, total [Moles /volume] in Serum or PlasmaOrdered By: Mariana Pryor on 03-27-2023 CO2 [Moles/Vol] 19.3 mmol/L 21.0-31.0 [facility] Chloride [Moles/volume] in S kishan or PlasmaOrdered By: Mariana Pryor on 03-27-2023 Chloride [Moles/Vol] 115 mmol/L 98-107 [facility] Complete Blood Count Auto Di ffon 03-27-2023 Basophils (Bld) [#/Vol] 0.0 10*3/uL Normal 0.0-0.2 [facility] Comment on above: Result Comment: PERF ORMED BY: [place] [address] PATHOLOGIST GUILLOTINE TRIMMER GATO PEÑA M.D. Performed By: #### V [id number], TSH3 wRFLX, T4F, LIPID #### [facility] [address] [place] [address] Basophils/100 WBC (Bld) 0.6 % Normal . F [facility] Comment on above: Performed By: #### V [id number], TSH3 wRFLX, T4F, LIPID #### [facility] [address] [place] [address] Eosinophils (Bld) [#/Vol] 0.0 10*3/uL Normal 0.0-0.45 [facility] Comment on above: Performed By: #### V [id number], TSH3 wRFLX, T4F, LIPID #### [address] Eosinophils/100 WBC (Bld) 0.4 % Normal . [facility] Comment on above: Performed By: #### V [id number], TSH3 wRFLX, T4F, LIPID #### [facility] [address] [place] [address] Erythrocyte distribution width (RBC) [Ratio] 13.2 % Normal 11.9-15.3 [facility] Comment on above: Performed By: #### V [id number], TSH3 wRFLX, T4F, LIPID #### [address] Hematocrit (Bld) [Volume fraction] 34.1 % Normal 34.0-46.4 [facility] Comment on above: Performed By: #### V [id number], TSH3 wRFLX, T4F, LIPID #### [address] Hemoglobin (Bld) [Mass/Vol] 11.5 g/dL Low 11.8-15.4 [facility] Comment on above: Performed By: #### V [id number], TSH3 wRFLX, T4F, LIPID #### [address] Lymphocytes (Bld) [#/Vol] 1.2 10*3/uL Normal 1.00-4.8 [facility] Comment on above: Performed By: #### V [id number], TSH3 wRFLX, T4F, LIPID #### [address] Lymphocytes/100 WBC (Bld) 14.9 % Normal . [facility] Comment on above: Performed By: #### V [id number], TSH3 wRFLX, T4F, LIPID #### [address] MCH (RBC) [Entitic mass] 32.3 pg Normal 24.7-34.3 [facility] Comment on above: Performed By: #### V [id number], TSH3 wRFLX, T4F, LIPID #### [address] MCV (RBC) [Entitic vol] 96.4 fL Normal 80-100 F [facility] Comment on above: Performed By: #### V [id number], TSH3 wRFLX, T4F, LIPID #### [address] Mean Corpuscular HGB Conc 33.6 g/dL Normal 32.0-35.0 [facility] Comment on above: Performed By: #### V [id number], TSH3 wRFLX, T4F, LIPID #### [address] Monocytes (Bld) [#/Vol] 0.6 10*3/uL Normal 0.0-0.8 [facility] Comment on above: Performed By: #### V [id number], TSH3 wRFLX, T4F, LIPID #### [facility] [address] [place] [address] [place] Monocytes/100 WBC (Bld) 8.3 % Normal . F [facility] Comment on above: Performed By: #### V [id number], TSH3 wRFLX, T4F, LIPID #### [facility] [address] [place] [address] [place] Neutrophils (Bld) [#/Vol] 5.9 10*3/uL Normal 1.8-7.7 [facility] Comment on above: Performed By: #### V [id number], TSH3 wRFLX, T4F, LIPID #### [facility] [address] Neutrophils/100 WBC (Bld) 75.8 % Normal . [facility] Comment on above: Performed By: #### V [id number], TSH3 wRFLX, T4F, LIPID #### [facility] [address] [place] [address] NRBC% 0.0 /100{WBC} Normal 0-0.5 [facility] Comment on above: Performed By: #### V [id number], TSH3 wRFLX, T4F, LIPID #### [facility] [address] [place] [address] Platelet mean volume (Bld) [Entitic vol] 8.5 fL Normal 6.3-10.7 [facility] Comment on above: Performed By: #### V [id number], TSH3 wRFLX, T4F, LIPID #### [facility] [address] [place] [address] [place] Platelets (Bld) [#/Vol] 201 10*3/uL Normal 150-450 [facility] Comment on above: Performed By: #### V [id number], TSH3 wRFLX, T4F, LIPID #### [facility] [address] [place] [address] RBC (Bld) [#/Vol] 3.54 10*6/uL Low 3.60-5.00 [facility] Comment on above: Performed By: #### V [id number], TSH3 wRFLX, T4F, LIPID #### [facility] [address] [place] [address] [place] WBC (Bld) [#/Vol] 7.7 10*3/uL Normal 3.8-11.6 [facility] Comment on above: Performed By: #### V [id number], TSH3 wRFLX, T4F, LIPID #### [facility] [address] Creatinine [Mass/volume] in Serum or PlasmaOrdered By: Mariana Pryor on 03-27-2023 Creatinine [Mass/Vol] 0.96 mg/dL 0.60-1.20 [facility] Eosinophils Auto (Bld) [#/Vo l]Ordered By: Mariana Pryor on 03-27-2023 Eosinophils (Bld) [#/Vol] 0.0 10*3/uL 0.0-0.45 [facility] Eosinophils/100 WBC Auto (Bl d)Ordered By: Mariana Pryor on 03-27-2023 Eosinophils/100 WBC (Bld) 0.4 % . [facility] Erythrocyte distribution wid th Auto (RBC) [Ratio]Ordered By: Mariana Guillaume on 03-27-2023 Erythrocyte distribution width (RBC) [Ratio] 13.2 % 11.9-15.3 [facility] Glucose [Mass/volume] in Ser um or PlasmaOrdered By: Mariana Pryor on 03-27-2023 Glucose [Mass/Vol] 110 mg/dL 70-100 [facility] Comment on above: ADA recommended refe rence rangeRandom Glucose Reference Range is dependent on time and content of last meal. Glucose of more than 200 mg/dL in a nonstressed, ambulatory subject supports the diagnosis of Diabetes Mellitus. Hematocrit Auto (Bld) [Volum e fraction]Ordered By: Mariana Pryor on 03-27-2023 Hematocrit (Bld) [Volume fraction] 34.1 % 34.0-46.4 [facility] Hemoglobin [Mass/volume] in BloodOrdered By: Mariana Pryor on 03-27-2023 Hemoglobin (Bld) [Mass/Vol] 11.5 g/dL 11.8-15.4 [facility] Leukocytes [#/volume] correc cornelia for nucleated erythrocytes in Blood by Automated counOrdered By: Mariana Pryor on 03-27-2023 WBC corrected for nucl RBC Auto (Bld) [#/Vol] 7.7 10*3/uL 3.8-11.6 [facility] Lymphocytes Auto (Bld) [#/Vo l]Ordered By: Mariana Pryor on 03-27-2023 Lymphocytes (Bld) [#/Vol] 1.2 10*3/uL 1.00-4.8 [facility] Lymphocytes/100 WBC Auto (Bl d)Ordered By: Mariana Pryor on 03-27-2023 Lymphocytes/100 WBC (Bld) 14.9 % . [facility] MCH Auto (RBC) [Entitic mass ]Ordered By: Mariana Pryor on 03-27-2023 MCH (RBC) [Entitic mass] 32.3 pg 24.7-34.3 [facility] MCHC Auto (RBC) [Mass/Vol]Or dered By: Mariana Pryor on 03-27-2023 MCHC (RBC) [Mass/Vol] 33.6 g/dL 32.0-35.0 [facility] MCV Auto (RBC) [Entitic vol] Ordered By: Mariana Pryor on 03-27-2023 MCV (RBC) [Entitic vol] 96.4 fL 80-100 [facility] Monocytes Auto (Bld) [#/Vol] Ordered By: Mariana Pryor on 03-27-2023 Monocytes (Bld) [#/Vol] 0.6 10*3/uL 0.0-0.8 [facility] Monocytes/100 WBC Auto (Bld) Ordered By: Mariana Pryor on 03-27-2023 Monocytes/100 WBC (Bld) 8.3 % . [facility] Neutrophils Auto (Bld) [#/Vo l]Ordered By: Mariana Pryor on 03-27-2023 Neutrophils (Bld) [#/Vol] 5.9 10*3/uL 1.8-7.7 [facility] Neutrophils/100 WBC Auto (Bl d)Ordered By: Mariana Pryor on 03-27-2023 Neutrophils/100 WBC (Bld) 75.8 % . [facility] No Panel InformationOrdered By: Mariana Pryor on 03-27-2023 Estimated GFR (CKD-EPI) > 60.0 mL/Min [facility] Creatinine Clearance (Chem 51.73 [facility] Nucleated erythrocytes [Pres ence] in Blood by Automated countOrdered By: Mariana Pryor on 03-27-2023 Nucleated RBC Auto Ql (Bld) 0.0 /100{WBC} 0-0.5 [facility] Platelet mean volume Auto (B ld) [Entitic vol]Ordered By: Mariana Pryor on 03-27-2023 Platelet mean volume (Bld) [Entitic vol] 8.5 fL 6.3-10.7 [facility] Platelets Auto (Bld) [#/Vol] Ordered By: Mariana Pryor on 03-27-2023 Platelets (Bld) [#/Vol] 201 10*3/uL 150-450 [facility] Potassium [Moles/volume] in Serum or PlasmaOrdered By: Mariana Pryor on 03-27-2023 Potassium [Moles/Vol] 4.0 mmol/L 3.5-5.1 [facility] RBC Auto (Bld) [#/Vol]Ordere d By: Mariana Pryor on 03-27-2023 RBC (Bld) [#/Vol] 3.54 10*6/uL 3.60-5.00 [facility] Serum or plasma anion gap de terminationOrdered By: Mariana Pryor on 03-27-2023 Anion gap [Moles/Vol] 11.7 mmol/L 6.0-15.0 [facility] Sodium [Moles/volume] in Ser um or PlasmaOrdered By: Mariana Pryor on 03-27-2023 Sodium [Moles/Vol] 142 mmol/L 136-145 [facility] Urea nitrogen [Mass/volume] in Serum or PlasmaOrdered By: Mariana Pryor on 03-27-2023 Urea nitrogen [Mass/Vol] 20 mg/dL 12-25 [facility] WBC Auto (Bld) [#/Vol]Ordere d By: Mariana Pryor on 03-27-2023 WBC (Bld) [#/Vol] 7.7 10*3/uL 3.8-11.6 [facility] Alanine aminotransferase [En zymatic activity/volume] in Serum or PlasmaOrdered By: Mariana Pryor on 03-26-2023 ALT [Catalytic activity/Vol] 18 U/L 7-52 [facility] Albumin [Mass/volume] in Ser um or Plasma by Bromocresol green (BCG) dye binding methoOrdered By: Mariana Pryor on 03-26-2023 Albumin BCG dye [Mass/Vol] 4.1 g/dL 3.5-5.7 [facility] Alkaline phosphatase [Enzyma tic activity/volume] in Serum or PlasmaOrdered By: Mariana Pryor on 03-26-2023 ALP [Catalytic activity/Vol] 92 U/L 34-104 [facility] Aspartate aminotransferase [ Enzymatic activity/volume] in Serum or PlasmaOrdered By: Mariana Pryor on 03-26-2023 AST [Catalytic activity/Vol] 15 U/L 13-39 [facility] Automated erythrocytes count in urine sediment (number/area)Ordered By: Mariana Pryor on 03-26-2023 RBC Auto (Urine sed) [#/Area] None seen [HPF] 0-4 [facility] Automated leukocytes count i n urine sediment (number/area)Ordered By: Mariana Pryor on 03-26-2023 WBC Auto (Urine sed) [#/Area] 20-49 [HPF] 0-4 [facility] Bilirubin Auto test strip Ql (U)Ordered By: Mariana Pryor on 03-26-2023 Bilirubin Ql (U) Negative Negative [facility] Bilirubin.total [Mass/volume ] in Serum or PlasmaOrdered By: Mariana Pryor on 03-26-2023 Bilirubin [Mass/Vol] 0.4 mg/dL 0.3-1.[address] [facility] [address] abdomen pelvis wo conon 1 CT abdomen pelvis wo con [facility] Main [place] [address] [place] [address] CT Scan Report Signed Patient: Gail Almeida MR#: [id number] : 1955 Acct:[id number] Age/Sex: 67 / F ADM Date: 03/26/23 Loc: Room: [address] [place] [address] Type: ADM IN Attending Dr: Joe Davis MD Copies to: MD Mariana Vides APRN Ordering Provider: Mariana Pryor APRN Date of Service: 03/26/23 CT/CT abdomen pelvis wo con: r/o stones, abd pain, n/v CT ABDOMEN AND PELVIS WITHOUT CONTRAST COMPARISON: 03/14/2023 CLINICAL DATA: Generalized abdominal pain on the left. Spiral images were obtained through the abdomen and pelvis without contrast. This CT exam was performed using one or more following dose reduction techniques: Automated exposure control, adjustment of the mA and/or kV according to patient size, or use of iterative reconstruction technique. Limited cuts through the lung bases show minor atelectasis or scarring. Assessment of the intra-abdominal organs is slightly limited by the absence of contrast. There is also some artifact from patient's right arm. No calcified gallstones are identified. The liver, spleen and pancreas are unremarkable. A low-density right adrenal nodule is again noted. There is slight thickening of the left adrenal limbs. There are several punctate calcifications throughout the cortex of the kidneys. There are tiny hypodensities on the right and a larger hypodensity anteriorly at the left kidney measuring almost 2 cm in size. These are probably cysts. No hydronephrosis is seen. No ureteral dilatation or stones are noted. The abdominal aorta is normal caliber and there is minimal plaque. There are no enlarged lymph nodes or ascites. The small bowel loops are not distended. There is a large amount of fluid within the stomach. There is mild stool throughout the colon. There is subtle dextroscoliotic curvature and degenerative changes at the spine, greatest at the lower facets where there is L4-5 spondylolisthesis. The appendix is not definitely seen. There is mild distal colonic stool. No diverticular disease is noted. No bladder abnormalities are seen. The uterus is surgically absent. There is no free fluid. There are buttock calcified injection granulomas. CT/CT abdomen pelvis wo con IMPRESSION: MULTIPLE SIMILAR RENAL CORTICAL CALCIFICATIONS AND SUSPECTED CYSTS. NO OBSTRUCTIVE UROPATHY. NO ACUTE FINDINGS. Impression dictated by: Lu Gonzales M.D.03/26/2023 8:39 PM Dictation Location: [place] [address] Transcribed By: [facility] 03/26/232038 Dictated By: Lu Gonzales MD 03/26/232031 Signed By: 03/26/232038 Normal [facility] Cholesterol [Mass/volume] in Serum or PlasmaOrdered By: Joe Davis on 03-26-2023 Cholesterol [Mass/Vol] 165 mg/dL 140-200 [facility] Comment on above: Chol less than 200 m g/dl low riskChol 201-239 mg/dl borderline riskChol 240 mg/dl and greater high risk Cholesterol in LDL Calc [Mas s/Vol]Ordered By: Joe Davis on 03-26-2023 Cholesterol in LDL [Mass/Vol] 95 mg/dL 0-100 [facility] Comment on above: LDL ATP III CLASSIFI CATIONLDL less than 100 mg/dL OptimalLDL 100-129 mg/dL Near or above optimalLDL 130-159 mg/dL Borderline highLDL 160-189 mg/dL HighLDL greater than 189 mg/dL Very high Cholesterol in VLDL Calc [Ma ss/Vol]Ordered By: Joe Davis on 03-26-2023 Cholesterol in VLDL [Mass/Vol] 17 mg/dL [facility] Complete Blood Count Auto Di ffon 03-26-2023 Basophils (Bld) [#/Vol] 0.0 10*3/uL Normal 0.0-0.2 [facility] Comment on above: Result Comment: PERF ORMED BY: [place] [address] PATHOLOGIST GUILLOTINE TRIMMER GATO PEÑA M.D. Performed By: #### V [id number], TSH3 wRFLX, T4F, LIPID #### [address] Basophils/100 WBC (Bld) 0.4 % Normal . [facility] Comment on above: Performed By: #### V [id number], TSH3 wRFLX, T4F, LIPID #### [address] Eosinophils (Bld) [#/Vol] 0.0 10*3/uL Normal 0.0-0.45 [facility] Comment on above: Performed By: #### V [id number], TSH3 wRFLX, T4F, LIPID #### [address] Eosinophils/100 WBC (Bld) 0.0 % Normal . [facility] Comment on above: Performed By: #### V [id number], TSH3 wRFLX, T4F, LIPID #### [address] Erythrocyte distribution width (RBC) [Ratio] 13.1 % Normal 11.9-15.3 [facility] Comment on above: Performed By: #### V [id number], TSH3 wRFLX, T4F, LIPID #### [address] Hematocrit (Bld) [Volume fraction] 36.8 % Normal 34.0-46.4 [facility] Comment on above: Performed By: #### V [id number], TSH3 wRFLX, T4F, LIPID #### [address] Hemoglobin (Bld) [Mass/Vol] 12.2 g/dL Normal 11.8-15.4 [facility] Comment on above: Performed By: #### V [id number], TSH3 wRFLX, T4F, LIPID #### [address] Lymphocytes (Bld) [#/Vol] 0.4 10*3/uL Low 1.00-4.8 [facility] Comment on above: Performed By: #### V [id number], TSH3 wRFLX, T4F, LIPID #### [address] Lymphocytes/100 WBC (Bld) 5.2 % Normal . [facility] Comment on above: Performed By: #### V [id number], TSH3 wRFLX, T4F, LIPID #### [address] MCH (RBC) [Entitic mass] 31.7 pg Normal 24.7-34.3 [facility] Comment on above: Performed By: #### V [id number], TSH3 wRFLX, T4F, LIPID #### [address] MCV (RBC) [Entitic vol] 95.4 fL Normal 80-100 F [facility] Comment on above: Performed By: #### V [id number], TSH3 wRFLX, T4F, LIPID #### [address] Mean Corpuscular HGB Conc 33.2 g/dL Normal 32.0-35.0 [facility] Comment on above: Performed By: #### V [id number], TSH3 wRFLX, T4F, LIPID #### [address] Monocytes (Bld) [#/Vol] 0.3 10*3/uL Normal 0.0-0.8 [facility] Comment on above: Performed By: #### V [id number], TSH3 wRFLX, T4F, LIPID #### [address] Monocytes/100 WBC (Bld) 4.6 % Normal . [facility] Comment on above: Performed By: #### V [id number], TSH3 wRFLX, T4F, LIPID #### [place] [address] [place] Neutrophils (Bld) [#/Vol] 6.7 10*3/uL Normal 1.8-7.7 [facility] Comment on above: Performed By: #### V [id number], TSH3 wRFLX, T4F, LIPID #### [address] Neutrophils/100 WBC (Bld) 89.8 % Normal . [facility] Comment on above: Performed By: #### V [id number], TSH3 wRFLX, T4F, LIPID #### [address] NRBC% 0.0 /100{WBC} Normal 0-0.5 [facility] Comment on above: Performed By: #### V [id number], TSH3 wRFLX, T4F, LIPID #### [address] Platelet mean volume (Bld) [Entitic vol] 8.4 fL Normal 6.3-10.7 [facility] Comment on above: Performed By: #### V [id number], TSH3 wRFLX, T4F, LIPID #### [place] [address] [place] Platelets (Bld) [#/Vol] 215 10*3/uL Normal 150-450 [facility] Comment on above: Performed By: #### V [id number], TSH3 wRFLX, T4F, LIPID #### [address] RBC (Bld) [#/Vol] 3.86 10*6/uL Normal 3.60-5.00 [facility] Comment on above: Performed By: #### V [id number], TSH3 wRFLX, T4F, LIPID #### [address] WBC (Bld) [#/Vol] 7.5 10*3/uL Normal 3.8-11.6 [facility] Comment on above: Performed By: #### V [id number], TSH3 wRFLX, T4F, LIPID #### [facility] [address] Comprehensive Metabolic Pane eusebia 03-26-2023 Albumin [Mass/Vol] 4.1 g/dL Normal 3.5-5.7 [facility] Comment on above: Performed By: #### V [id number], TSH3 wRFLX, T4F, LIPID #### [facility] [address] [place] [address] Albumin/Globulin [Mass ratio] 1.7 {ratio} Normal [facility] Comment on above: Performed By: #### V [id number], TSH3 wRFLX, T4F, LIPID #### [address] ALP [Catalytic activity/Vol] 92 U/L Normal 34-104 [facility] Comment on above: Performed By: #### V [id number], TSH3 wRFLX, T4F, LIPID #### [address] ALT [Catalytic activity/Vol] 18 U/L Normal 7-52 [facility] Comment on above: Performed By: #### V [id number], TSH3 wRFLX, T4F, LIPID #### [address] Anion gap [Moles/Vol] 5.5 mmol/L Low 6.0-15.0 [facility] Comment on above: Performed By: #### V [id number], TSH3 wRFLX, T4F, LIPID #### [address] AST [Catalytic activity/Vol] 15 U/L Normal 13-39 [facility] Comment on above: Performed By: #### V [id number], TSH3 wRFLX, T4F, LIPID #### [address] Bilirubin [Mass/Vol] 0.4 mg/dL Normal 0.3-1.0 [facility] Comment on above: Performed By: #### V [id number], TSH3 wRFLX, T4F, LIPID #### [facility] [address] Calcium [Mass/Vol] 9.5 mg/dL Normal 8.6-10.3 [facility] Comment on above: Performed By: #### V [id number], TSH3 wRFLX, T4F, LIPID #### [facility] [address] Chloride [Moles/Vol] 120 mmol/L High 98-107 [facility] Comment on above: Performed By: #### V [id number], TSH3 wRFLX, T4F, LIPID #### [facility] [address] [place] [address] CO2 [Moles/Vol] 20.4 mmol/L Low 21.0-31.0 [facility] Comment on above: Performed By: #### V [id number], TSH3 wRFLX, T4F, LIPID #### [facility] [address] [place] [address] Creatinine [Mass/Vol] 0.99 mg/dL Normal 0.60-1.20 [facility] Comment on above: Performed By: #### V [id number], TSH3 wRFLX, T4F, LIPID #### [address] Creatinine Clr Calc Pharmacy 50.16 [facility] Comment on above: Performed By: #### V [id number], TSH3 wRFLX, T4F, LIPID #### [facility] [address] [place] [address] GFR/1.73 sq M.predicted MDRD (S/P/Bld) [Vol rate/Area] mL/min/{1.73_m2} [facility] Comment on above: Performed By: #### V [id number], TSH3 wRFLX, T4F, LIPID #### [facility] [address] [place] [address] Globulin (S) [Mass/Vol] 2.4 g/dL Normal [facility] Comment on above: Performed By: #### V [id number], TSH3 wRFLX, T4F, LIPID #### [facility] [address] Glucose [Mass/Vol] 119 mg/dL High 70-100 [facility] Comment on above: Result Comment: [place] Glucose Reference Range is dependent on time and content of last meal. Glucose of more than 200 mg/dL in a nonstressed, ambulatory subject supports the diagnosis of Diabetes Mellitus. ADA recommended reference range Performed By: #### V [id number], TSH3 wRFLX, T4F, LIPID #### [facility] [address] Potassium [Moles/Vol] 3.9 mmol/L Normal 3.5-5.1 [facility] Comment on above: Performed By: #### V [id number], TSH3 wRFLX, T4F, LIPID #### [facility] [address] [place] [address] [place] Protein [Mass/Vol] 6.5 g/dL Normal 6.4-8.9 [facility] Comment on above: Performed By: #### V [id number], TSH3 wRFLX, T4F, LIPID #### [place] [address] [place] Sodium [Moles/Vol] 142 mmol/L Normal 136-145 [facility] Comment on above: Performed By: #### V [id number], TSH3 wRFLX, T4F, LIPID #### [facility] [address] [place] [address] [place] Urea nitrogen [Mass/Vol] 22 mg/dL Normal 7-25 [facility] Comment on above: Performed By: #### V [id number], TSH3 wRFLX, T4F, LIPID #### [facility] [address] [place] [address] [place] Dipstick and Microscopicon 1 Appearance (U) Clear Normal Clear [facility] Comment on above: Order Comment: Name Collection Type:: Clean-Voided Midstream Performed By: #### V [id number], TSH3 wRFLX, T4F, LIPID #### [facility] [address] [place] [address] [place] Bacteria,Urine None Seen Normal None Seen [facility] Comment on above: Order Comment: Name Collection Type:: Clean-Voided Midstream Performed By: #### V [id number], TSH3 wRFLX, T4F, LIPID #### [facility] [address] [place] [address] [place] Bilirubin,Urine Negative Normal Negative [facility] Comment on above: Order Comment: Name Collection Type:: Clean-Voided Midstream Performed By: #### V [id number], TSH3 wRFLX, T4F, LIPID #### [facility] [address] [place] [address] [place] Color (U) Yellow Normal Yellow [facility] Comment on above: Order Comment: Name Collection Type:: Clean-Voided Midstream Performed By: #### V [id number], TSH3 wRFLX, T4F, LIPID #### [facility] [address] [place] [address] [place] Glucose Ql (U) Normal Normal Normal [facility] Comment on above: Order Comment: Name Collection Type:: Clean-Voided Midstream Performed By: #### V [id number], TSH3 wRFLX, T4F, LIPID #### [address] Hyaline Casts,Urine None Seen Normal 0-8 [facility] Comment on above: Order Comment: Name Collection Type:: Clean-Voided Midstream Result Comment: PERF ORMED BY: [place] [address] PATHOLOGIST GUILLOTINE TRIMMER GATO PEÑA M.D. Performed By: #### V [id number], TSH3 wRFLX, T4F, LIPID #### [facility] [address] [place] [address] [place] Ketones Ql (U) 1+ High Negative [facility] Comment on above: Order Comment: Name Collection Type:: Clean-Voided Midstream Performed By: #### V [id number], TSH3 wRFLX, T4F, LIPID #### [address] [place] [address] [place] Leukocyte esterase Test strip Ql (U) 3+ High Negative [facility] Comment on above: Order Comment: Name Collection Type:: Clean-Voided Midstream Performed By: #### V [id number], TSH3 wRFLX, T4F, LIPID #### [facility] [address] [place] [address] Nitrite,Urine Negative Normal Negative [facility] Comment on above: Order Comment: Name Collection Type:: Clean-Voided Midstream Performed By: #### V [id number], TSH3 wRFLX, T4F, LIPID #### [address] Occult Blood,Urine Trace High Negative [facility] Comment on above: Order Comment: Name Collection Type:: Clean-Voided Midstream Result Comment: PERF ORMED BY: [place] [address] PATHOLOGIST GUILLOTINE TRIMMER GATO PEÑA M.D. Performed By: #### V [id number], TSH3 wRFLX, T4F, LIPID #### [address] pH (U) 6.0 [pH] Normal 5.0-9.0 [facility] Comment on above: Order Comment: Name Collection Type:: Clean-Voided Midstream Performed By: #### V [id number], TSH3 wRFLX, T4F, LIPID #### [facility] [address] [place] [address] [place] Protein,Urine Negative Normal Negative [facility] Comment on above: Order Comment: Name Collection Type:: Clean-Voided Midstream Performed By: #### V [id number], TSH3 wRFLX, T4F, LIPID #### [place] [address] [place] RBC,Urine None Seen Normal 0-4 [facility] Comment on above: Order Comment: Name Collection Type:: Clean-Voided Midstream Performed By: #### V [id number], TSH3 wRFLX, T4F, LIPID #### [address] Specificy [place],Urine 1.010 Normal 1.00 1-1.03 0 [facility] Comment on above: Order Comment: Name Collection Type:: Clean-Voided Midstream Performed By: #### V [id number], TSH3 wRFLX, T4F, LIPID #### [address] Squamous Epithelial Cell,Urine 0-1 Normal 0-2 [facility] Comment on above: Order Comment: Name Collection Type:: Clean-Voided Midstream Performed By: #### V [id number], TSH3 wRFLX, T4F, LIPID #### [address] Urobilinogen,Urine Normal Normal Normal [facility] Comment on above: Order Comment: Name Collection Type:: Clean-Voided Midstream Performed By: #### V [id number], TSH3 wRFLX, T4F, LIPID #### [address] WBC,Urine 20-49 High 0-4 [facility] Comment on above: Order Comment: Name Collection Type:: Clean-Voided Midstream Performed By: #### V [id number], TSH3 wRFLX, T4F, LIPID #### [address] ECG 12 lead ECGon 03-26-2023 ECG 12 lead ECG [facility] Main [place] [address] [place] [address] Electrocardiograph Report Signed Patient: Gail Almeida MR#: [id number] 250 : 1955 Acct:[id number] Age/Sex: 67 / F ADM Date: 03/26/23 Loc: Room: [address] [place] [address] Type: ADM IN Attending Dr: Joe Davis MD Ordering Provider: Joe Davis MD Date of Service: 03/26/23 ECG/ECG 12 lead ECG: baseline for psych meds Copies to: Test Reason : Blood Pressure : / mmHG Vent. Rate : 073 BPM Atrial Rate : 073 BPM P-R Int : 190 ms QRS Dur : 150 ms QT Int : 458 ms P-R-T Axes : 053 -85 037 degrees QTc Int : 504 ms Normal sinus rhythm Right bundle branch block Left anterior fascicular block Abnormal ECG When compared with ECG of 12-MAR-2023 10:41, Criteria for Septal infarct are no longer present Confirmed by TAMIR ROBLES DO ([id number]) on 03/26/2023 7:00:59 PM Referred By: Electronically Signed By:TAMIR ROBLES DO Transcribed By: MUS Signed By Tamir Robles DO 03/26 1901 Normal [facility] Free T4 (Free Thyroxine)on 1 Free T4 [Mass/Vol] 0.74 ng/dL Normal 0.61-1.12 [facility] Comment on above: Performed By: #### V [id number], TSH3 wRFLX, T4F, LIPID #### [facility] [address] Globulin Calc (S) [Mass/Vol] Ordered By: Mariana Pryor on 03-26-2023 Globulin (S) [Mass/Vol] 2.4 g/dL F [facility] Ketones Auto test strip (U) [Mass/Vol]Ordered By: Mariana Pryor on 03-26-2023 Ketones (U) [Mass/Vol] 1+ Negative Fi [facility] - UrinalysisOrder ed By: Mariana Pryor on 03-26-2023 Hyaline casts LM Ql (Urine sed) None seen [LPF] 0-8 [facility] Lipaseon 03-26-2023 Lipase [Catalytic activity/Vol] 11.0 U/L Normal 11.0-82.0 [facility] Comment on above: Result Comment: PERF ORMED BY: [place] [address] PATHOLOGIST GUILLOTINE TRIMMER GATO PEÑA M.D. Performed By: #### V [id number], TSH3 wRFLX, T4F, LIPID #### [facility] [address] [place] [id number] [place] Lipase [Enzymatic activity/v olume] in Serum or PlasmaOrdered By: Mariana Pryor on 03-26-2023 Lipase [Catalytic activity/Vol] 11.0 U/L 11.0-82.0 [facility] Lipid Panelon 03-26-2023 Cholesterol [Mass/Vol] 165 mg/dL Normal 140-200 [facility] Comment on above: Result Comment: Chol less than 200 mg/dl low risk Chol 201-239 mg/dl borderline risk Chol 240 mg/dl and greater high risk Performed By: #### V [id number], TSH3 wRFLX, T4F, LIPID #### [facility] [address] [place] [id number] [place] Cholesterol in HDL [Mass/Vol] 53 mg/dL Normal 23-92 [facility] Comment on above: Result Comment: HDL CHOL ATP-III CLASSIFICATION Cardiovascular Risk HDL > or equal to 60 mg/dL LOW HDL < 40 mg/dL HIGH Performed By: #### V [id number], TSH3 wRFLX, T4F, LIPID #### [facility] [address] [place] [address] [place] Cholesterol.total/Judy sterol in HDL [Mass ratio] 3.1 {ratio} Normal <5.0 [facility] Comment on above: Performed By: #### V [id number], TSH3 wRFLX, T4F, LIPID #### [facility] [address] [place] [address] [place] LDL Cholesterol,Calculated 95 mg/dL Normal 0-100 [facility] Comment on above: Result Comment: LDL ATP III CLASSIFICATION LDL less than 100 mg/dL Optimal LDL 100-129 mg/dL Near or above optimal LDL 130-159 mg/dL Borderline high LDL 160-189 mg/dL High LDL greater than 189 mg/dL Very high Performed By: #### V [id number], TSH3 wRFLX, T4F, LIPID #### [facility] [address] [place] [address] [place] Triglyceride w/Reflex 86 mg/dL Normal 0-149 [facility] Comment on above: Result Comment: TRIG ATP III CLASSIFICATION TRIG less than 150 mg/dL Normal TRIG 150-199 mg/dL Borderline high TRIG 200-500 mg/dL High TRIG greater than 500 mg/dL Very high Standard traceable to the Center for Disease Conrtrol and Prevention (CDC) test method. Performed By: #### V [id number], TSH3 wRFLX, T4F, LIPID #### [facility] [address] [place] [address] [place] VLDL CHOLESTEROL 17 mg/dL Normal [facility] Comment on above: Performed By: #### V [id number], TSH3 wRFLX, T4F, LIPID #### [facility] [address] Lithiumon 03-26-2023 [place] [Moles/Vol] 0.20 mmol/L Low 0.60-1.20 [facility] Comment on above: Result Comment: PERF ORMED BY: [facility] [address] [place] [address] PATHOLOGIST GUILLOTINE TRIMMER GATO PEÑA M.D. Performed By: #### V [id number], TSH3 wRFLX, T4F, LIPID #### [facility] [address] [place] [Moles/volume] in Se rum or PlasmaOrdered By: Joe Davis on 03-26-2023 [place] [Moles/Vol] 0.20 mmol/L 0.60-1.20 [facility] Protein Auto test strip (U) [Mass/Vol]Ordered By: Mariana Pryor on 03-26-2023 Protein (U) [Mass/Vol] Negative Negative [facility] Protein [Mass/volume] in Ser um or PlasmaOrdered By: Mariana Pryor on 03-26-2023 Protein [Mass/Vol] 6.5 g/dL 6.4-8.9 [facility] Serum or plasma albumin/glob ulin mass ratioOrdered By: Mariana Pryor on 03-26-2023 Albumin/Globulin [Mass ratio] 1.7 {ratio} [facility] Serum or plasma high density lipoprotein (HDL) cholesterol measurementOrdered By: Joe Davis on 03-26-2023 Cholesterol in HDL [Mass/Vol] 53 mg/dL 23-92 [facility] Comment on above: HDL CHOL ATP-III CLA SSIFICATION Cardiovascular RiskHDL > or equal to 60 mg/dL LOWHDL < 40 mg/dL HIGH Serum or plasma total choles terol/high density lipoprotein (HDL) cholesterol mass ratOrdered By: Joe Davis on 03-26-2023 Cholesterol.total/Judy sterol in HDL [Mass ratio] 3.1 {ratio} <5.0 [facility] Squamous epithelial cells de tection in urine sediment by light microscopyOrdered By: Mariana Pryor on 03-26-2023 Epithelial cells.squamous LM Ql (Urine sed) 0-1 [HPF] 0-2 [facility] Thyroid Stim Hormone w/Rflxo n 03-26-2023 Thyroid Stim Hormone w/Rflx 0.42 u[iU]/mL Low 0.45-5.33 [facility] Comment on above: Performed By: #### V [id number], TSH3 wRFLX, T4F, LIPID #### [address] Thyrotropin [Units/volume] i n Serum or PlasmaOrdered By: Joe Davis on 03-26-2023 TSH Qn 0.42 m[IU]/L 0.45-5.33 [facility] Thyroxine (T4) free [Mass/vo lume] in Serum or PlasmaOrdered By: Joe Davis on 03-26-2023 Free T4 [Mass/Vol] 0.74 ng/dL 0.61-1.12 [facility] Triglyceride [Mass/volume] i n Serum or PlasmaOrdered By: Joe Davis on 03-26-2023 Triglyceride [Mass/Vol] 86 mg/dL 0-149 [facility] Comment on above: TRIG ATP III CLASSIF ICATIONTRIG less than 150 mg/dL NormalTRIG 150-199 mg/dL Borderline highTRIG 200-500 mg/dL High TRIG greater than 500 mg/dL Very highStandard traceable to the Center for Disease Conrtrol and Prevention (CDC) test method. Urine Cultureon 03-26-2023 Bacteria identified Cx Nom (U) ORGANISM: Morganella morganii (O:MORMOR) [place] Count 30,000 Aerobic FELIZ Charge (NMIC56) - SUSCEPTIBILITY ORGANISM: O:MORMOR ANTIBIOTIC INTERPRETATION FELIZ Amikacin S <16 Ampicillin/Sulbactam IB <4 Aztreonam I 8 Cefepime S <2 Ceftazidime IB 4 Ceftazidime/Avibactam S <4 Ceftolozane/Tazobactam I 4 Ceftriaxone IB <1 Ciprofloxacin S <0.25 Ertapenem S <0.5 Gentamicin S <2 Levofloxacin S <0.5 Meropenem S <1 Meropenem/Vaborbactam S <2 Piperacillin/Tazobactam IB <8 Tetracycline S <4 Tobramycin S <2 Trimethoprim/Sulfamethox azole S <0.5 S = SUSCEPTIBLE I = INTERMEDIATE R = RESISTANT BLANK = DATA NOT AVAILABLE, OR DRUG NOT ADVISABLE OR TESTED R* = RESISTANCE DUE TO EXTENDED SPECTRUM BETA-LACTAMASES ESBL = EXTENDED SPECTRUM BETA-LACTAMASE TFG = THYMIDINE-DEPENDENT STRAIN NORM = BETA-LACTAMASE POSITIVE IB = INDUCIBLE BETA-LACTAMASE. APPEARS IN PLACE OF 'S' WITH SPECIES KNOWN TO POSSESS INDUCIBLE BETA-LACTAMASES. POTENTIALLY THEY MAY BECOME RESISTANT TO ALL B-LACTAM DRUGS. PERFORMED BY: [place] [address] PATHOLOGIST GUILLOTINE TRIMMER GATO PEÑA M.D. Normal [facility] Comment on above: Performed By: #### V [id number], TSH3 wRFLX, T4F, LIPID #### [address] Urine appearanceOrdered By: Mariana Pryor on 03-26-2023 Appearance (U) Clear Clear [facility] Urine bacteria detection by automated methodOrdered By: Mariana Pryor on 03-26-2023 Bacteria Auto Ql (U) None seen None Seen [facility] Urine colorOrdered By: Mariana Pryor on 03-26-2023 Color (U) Yellow Yellow [facility] Urine glucose measurement by automated test strip (mass/volume)Ordered By: Mariana Pryor on 03-26-2023 Glucose Auto test strip (U) [Mass/Vol] Normal mg/dL Normal [facility] Urine hemoglobin detection b y automated test stripOrdered By: Mariana Guillaume on 03-26-2023 Hemoglobin Auto test strip Ql (U) Trace Negative [facility] Urine leukocyte esterase det ection by automated test stripOrdered By: Mariana Pryor on 03-26-2023 Leukocyte esterase Auto test strip Ql (U) 3+ Negative [facility] Urine nitrite detection by a utomated test stripOrdered By: Mariana Pryor on 03-26-2023 Nitrite Auto test strip Ql (U) Negative Negative [facility] Urobilinogen Auto test strip (U) [Mass/Vol]Ordered By: Mariana Pryor on 03-26-2023 Urobilinogen (U) [Mass/Vol] Normal mg/dL Normal [facility] Vitamin D 25 Hydroxy Totalon 03-26-2023 Vitamin D 25 Hydroxy Total 34.5 ng/mL Normal 30-100 [facility] Comment on above: Result Comment: EDUARDO MIN D STATUS 25([place])VITAMIN D RANGE (ng/mL) Deficient <20 Insufficient 20 to <30 Sufficient 30 to 100 Reference: Lucio MF,Renée NC, Francisco CARPIO, et al. Evaluation,treatment, and prevention of vitamin D deficiency; an Endocrine Society clinical practice guideline. JCEM. 2010; 96(7):1911-30. PERFORMED BY: [facility] [address] [place] [address] PATHOLOGIST GUILLOTINE TRIMMER GATO PEÑA M.D. Performed By: #### V [id number], TSH3 wRFLX, T4F, LIPID #### [facility] [address] Vitamin D+Metabolites [Mass/ volume] in Serum or PlasmaOrdered By: Joe Davis on 03-26-2023 Vitamin D+Metabolites [Mass/Vol] 34.5 ng/mL 30-100 [facility] Comment on above: VITAMIN D STATUS 25( [place])VITAMIN D RANGE (ng/mL) Deficient <20 Insufficient 20 to <30Sufficient 30 to 100Reference: Lucio MF,Renée NC, Francisco CARPIO, et al. Evaluation,treatment, and prevention of vitamin D deficiency; an Endocrine Society clinical practice guideline. JCEM. 2010; 96(7):1911-30. pH Auto test strip (U)Ordere d By: Mariana Pryor on 03-26-2023 pH (U) 1.010 [pH] 1.001-1.03 0 [facility] pH (U) 6.0 [pH] 5.0-9.0 [facility] Alanine aminotransferase [En zymatic activity/volume] in Serum or PlasmaOrdered By: Mariana Kee on 03-14-2023 ALT [Catalytic activity/Vol] 28 U/L 7-52 [facility] Albumin [Mass/volume] in Ser um or Plasma by Bromocresol green (BCG) dye binding methoOrdered By: Mariana Kee on 03-14-2023 Albumin BCG dye [Mass/Vol] 3.9 g/dL 3.5-5.7 [facility] Alkaline phosphatase [Enzyma tic activity/volume] in Serum or PlasmaOrdered By: Mariana Kee on 03-14-2023 ALP [Catalytic activity/Vol] 86 U/L 34-104 [facility] Aspartate aminotransferase [ Enzymatic activity/volume] in Serum or PlasmaOrdered By: Mariana Kee on 03-14-2023 AST [Catalytic activity/Vol] 18 U/L 13-39 [facility] Basophils Auto (Bld) [#/Vol] Ordered By: Mariana Kee on 03-14-2023 Basophils (Bld) [#/Vol] 0.1 10*3/uL 0.0-0.2 [facility] Basophils/100 WBC Auto (Bld) Ordered By: Mariana Kee on 03-14-2023 Basophils/100 WBC (Bld) 1.0 % . [facility] Bilirubin.total [Mass/volume ] in Serum or PlasmaOrdered By: Mariana Kee on 03-14-2023 Bilirubin [Mass/Vol] 0.3 mg/dL 0.3-1.[address] [facility] [address] abdomen pelvis wo/w conon 03-14-2023 CT abdomen pelvis wo/w con [facility] [place] [address] [place] [address] CT Scan Report Signed Patient: Gail Almeida MR#: [id number] : 1955 Acct:[id number] Age/Sex: 67 / F ADM Date: 03/11/23 Loc: Room: [address] [place] [address] Type: ADM IN Attending Dr: Joe Davis MD Copies to: MD Mariana Vides ANP-BC Ordering Provider: NATALY Park Date of Service: 03/14/23 CT/CT abdomen pelvis wo/w con: abd pain, left flank pain CT ABDOMEN AND PELVIS WITH AND WITHOUT INTRAVENOUS CONTRAST: CLINICAL HISTORY: Left flank pain. COMPARISON: None TECHNIQUE: Spiral images were obtained through the abdomen and pelvis before and after the administration of intravenous contrast. This CT exam was performed using one or more following dose reduction techniques: Automated exposure control, adjustment of the mA and/or kV according to patient size, or use of iterative reconstruction technique. FINDINGS: Lung Bases: [Minimal scarring.] Organs:Liver gallbladder spleen pancreas and left adrenal gland appear unremarkable. Right adrenal adenoma. Bilateral punctate calcifications, most appear cortical in location. No obstructive uropathy. Cystic changes involving both kidneys. Abdominal aorta appears normal in caliber. GI: Stomach is grossly unremarkable. Small bowel appears nondilated. No acute colonic abnormality.[ Pelvis:[Urinary bladder is grossly unremarkable. Uterus has been removed. No adnexal mass.] Peritoneum/Retroperitone um:No free air, free fluid or lymphadenopathy.[ Abd wall/Bones:Abdominal wall demonstrates no acute findings.[Osseous structures demonstrate degenerative change. CT/CT abdomen pelvis wo/w con IMPRESSION: No acute findings. No obstructive uropathy. Punctate calcifications involving both kidneys, most which appear cortical in location. Impression dictated by: Yandel Lees Jr., D.O.03/14/2023 4:07 PM Dictation Location: RADIO--14 Transcribed By: ZITA 03/14/231606 Dictated By: Yandel Lees Jr, DO 03/14/23 160 Signed By: 03/14/23 160 Normal [facility] Calcium [Mass/volume] in Ser um or PlasmaOrdered By: Mariana Kee on 03-14-2023 Calcium [Mass/Vol] 9.3 mg/dL 8.6-10.3 [facility] Carbon dioxide, total [Moles /volume] in Serum or PlasmaOrdered By: Mariana Kee on 03-14-2023 CO2 [Moles/Vol] 20.1 mmol/L 21.0-31.0 [facility] Chloride [Moles/volume] in S kishan or PlasmaOrdered By: Mariana Kee on 03-14-2023 Chloride [Moles/Vol] 116 mmol/L 98-107 [facility] Complete Blood Count Auto Di ffon 03-14-2023 Basophils (Bld) [#/Vol] 0.1 10*3/uL Normal 0.0-0.2 [facility] Comment on above: Result Comment: PERF ORMED BY: [place] [address] PATHOLOGIST GUILLOTINE TRIMMER GATO PEÑA M.D. Performed By: #### V [id number], TSH3 wRFLX, T4F, LIPID #### [facility] [address] [place] [address] [place] Basophils/100 WBC (Bld) 1.0 % Normal . [facility] Comment on above: Performed By: #### V [id number], TSH3 wRFLX, T4F, LIPID #### [facility] [address] [place] [address] [place] Eosinophils (Bld) [#/Vol] 0.2 10*3/uL Normal 0.0-0.45 [facility] Comment on above: Performed By: #### V [id number], TSH3 wRFLX, T4F, LIPID #### [facility] [address] [place] [address] [place] Eosinophils/100 WBC (Bld) 4.6 % Normal . [facility] Comment on above: Performed By: #### V [id number], TSH3 wRFLX, T4F, LIPID #### [address] Erythrocyte distribution width (RBC) [Ratio] 13.3 % Normal 11.9-15.3 [facility] Comment on above: Performed By: #### V [id number], TSH3 wRFLX, T4F, LIPID #### [address] Hematocrit (Bld) [Volume fraction] 37.4 % Normal 34.0-46.4 [facility] Comment on above: Performed By: #### V [id number], TSH3 wRFLX, T4F, LIPID #### [address] Hemoglobin (Bld) [Mass/Vol] 12.5 g/dL Normal 11.8-15.4 [facility] Comment on above: Performed By: #### V [id number], TSH3 wRFLX, T4F, LIPID #### [address] Lymphocytes (Bld) [#/Vol] 1.9 10*3/uL Normal 1.00-4.8 [facility] Comment on above: Performed By: #### V [id number], TSH3 wRFLX, T4F, LIPID #### [place] [address] [place] Lymphocytes/100 WBC (Bld) 37.2 % Normal . [facility] Comment on above: Performed By: #### V [id number], TSH3 wRFLX, T4F, LIPID #### [address] MCH (RBC) [Entitic mass] 31.9 pg Normal 24.7-34.3 [facility] Comment on above: Performed By: #### V [id number], TSH3 wRFLX, T4F, LIPID #### [place] [id number] [place] MCV (RBC) [Entitic vol] 95.2 fL Normal 80-100 [facility] Comment on above: Performed By: #### V [id number], TSH3 wRFLX, T4F, LIPID #### [address] Mean Corpuscular HGB Conc 33.5 g/dL Normal 32.0-35.0 [facility] Comment on above: Performed By: #### V [id number], TSH3 wRFLX, T4F, LIPID #### [address] Monocytes (Bld) [#/Vol] 0.6 10*3/uL Normal 0.0-0.8 [facility] Comment on above: Performed By: #### V [id number], TSH3 wRFLX, T4F, LIPID #### [address] Monocytes/100 WBC (Bld) 11.5 % Normal . [facility] Comment on above: Performed By: #### V [id number], TSH3 wRFLX, T4F, LIPID #### [address] Neutrophils (Bld) [#/Vol] 2.4 10*3/uL Normal 1.8-7.7 [facility] Comment on above: Performed By: #### V [id number], TSH3 wRFLX, T4F, LIPID #### [address] Neutrophils/100 WBC (Bld) 45.7 % Normal . [facility] Comment on above: Performed By: #### V [id number], TSH3 wRFLX, T4F, LIPID #### [place] [address] [place] NRBC% 0.1 /100{WBC} Normal 0-0.5 [facility] Comment on above: Performed By: #### V [id number], TSH3 wRFLX, T4F, LIPID #### [address] [place] [address] [place] Platelet mean volume (Bld) [Entitic vol] 8.7 fL Normal 6.3-10.7 [facility] Comment on above: Performed By: #### V [id number], TSH3 wRFLX, T4F, LIPID #### [facility] [address] Platelets (Bld) [#/Vol] 212 10*3/uL Normal 150-450 [facility] Comment on above: Performed By: #### V [id number], TSH3 wRFLX, T4F, LIPID #### [facility] [address] [place] [address] RBC (Bld) [#/Vol] 3.93 10*6/uL Normal 3.60-5.00 [facility] Comment on above: Performed By: #### V [id number], TSH3 wRFLX, T4F, LIPID #### [facility] [address] [place] [address] WBC (Bld) [#/Vol] 5.2 10*3/uL Normal 3.8-11.6 [facility] Comment on above: Performed By: #### V [id number], TSH3 wRFLX, T4F, LIPID #### [facility] [address] [place] [address] Comprehensive Metabolic Pane eusebia 03-14-2023 Albumin [Mass/Vol] 3.9 g/dL Normal 3.5-5.7 [facility] Comment on above: Performed By: #### V [id number], TSH3 wRFLX, T4F, LIPID #### [facility] [address] [place] [address] Albumin/Globulin [Mass ratio] 2.0 {ratio} Normal [facility] Comment on above: Performed By: #### V [id number], TSH3 wRFLX, T4F, LIPID #### [facility] [address] [place] [address] ALP [Catalytic activity/Vol] 86 U/L Normal 34-104 [facility] Comment on above: Performed By: #### V [id number], TSH3 wRFLX, T4F, LIPID #### [facility] [address] ALT [Catalytic activity/Vol] 28 U/L Normal 7-52 [facility] Comment on above: Performed By: #### V [id number], TSH3 wRFLX, T4F, LIPID #### [facility] [address] Anion gap [Moles/Vol] 9.1 mmol/L Normal 6.0-15.0 [facility] Comment on above: Performed By: #### V [id number], TSH3 wRFLX, T4F, LIPID #### [facility] [address] [place] [address] AST [Catalytic activity/Vol] 18 U/L Normal 13-39 [facility] Comment on above: Performed By: #### V [id number], TSH3 wRFLX, T4F, LIPID #### [facility] [address] [place] [address] Bilirubin [Mass/Vol] 0.3 mg/dL Normal 0.3-1.0 [facility] Comment on above: Performed By: #### V [id number], TSH3 wRFLX, T4F, LIPID #### [address] Calcium [Mass/Vol] 9.3 mg/dL Normal 8.6-10.3 [facility] Comment on above: Performed By: #### V [id number], TSH3 wRFLX, T4F, LIPID #### [address] Chloride [Moles/Vol] 116 mmol/L High 98-107 [facility] Comment on above: Performed By: #### V [id number], TSH3 wRFLX, T4F, LIPID #### [address] CO2 [Moles/Vol] 20.1 mmol/L Low 21.0-31.0 [facility] Comment on above: Performed By: #### V [id number], TSH3 wRFLX, T4F, LIPID #### [facility] [address] Creatinine [Mass/Vol] 1.01 mg/dL Normal 0.60-1.20 [facility] Comment on above: Performed By: #### V [id number], TSH3 wRFLX, T4F, LIPID #### [facility] [address] Creatinine Clr Calc Pharmacy 49.17 [facility] Comment on above: Performed By: #### V [id number], TSH3 wRFLX, T4F, LIPID #### [facility] [address] GFR/1.73 sq M.predicted MDRD (S/P/Bld) [Vol rate/Area] mL/min/{1.73_m2} [facility] Comment on above: Performed By: #### V [id number], TSH3 wRFLX, T4F, LIPID #### [facility] [address] Globulin (S) [Mass/Vol] 2.0 g/dL Normal [facility] Comment on above: Performed By: #### V [id number], TSH3 wRFLX, T4F, LIPID #### [address] Glucose [Mass/Vol] 101 mg/dL High 70-100 [facility] Comment on above: Result Comment: [place] Glucose Reference Range is dependent on time and content of last meal. Glucose of more than 200 mg/dL in a nonstressed, ambulatory subject supports the diagnosis of Diabetes Mellitus. ADA recommended reference range Performed By: #### V [id number], TSH3 wRFLX, T4F, LIPID #### [facility] [address] Potassium [Moles/Vol] 4.2 mmol/L Normal 3.5-5.1 [facility] Comment on above: Performed By: #### V [id number], TSH3 wRFLX, T4F, LIPID #### [facility] [address] Protein [Mass/Vol] 5.9 g/dL Low 6.4-8.9 [facility] Comment on above: Performed By: #### V [id number], TSH3 wRFLX, T4F, LIPID #### [facility] [address] Sodium [Moles/Vol] 141 mmol/L Normal 136-145 [facility] Comment on above: Performed By: #### V [id number], TSH3 wRFLX, T4F, LIPID #### [facility] [address] Urea nitrogen [Mass/Vol] 30 mg/dL High 7-25 [facility] Comment on above: Performed By: #### V [id number], TSH3 wRFLX, T4F, LIPID #### [facility] [address] Creatinine [Mass/volume] in Serum or PlasmaOrdered By: Mariana Kee on 03-14-2023 Creatinine [Mass/Vol] 1.01 mg/dL 0.60-1.20 [facility] Eosinophils Auto (Bld) [#/Vo l]Ordered By: Mariana Kee on 03-14-2023 Eosinophils (Bld) [#/Vol] 0.2 10*3/uL 0.0-0.45 [facility] Eosinophils/100 WBC Auto (Bl d)Ordered By: Mariana Kee on 03-14-2023 Eosinophils/100 WBC (Bld) 4.6 % . [facility] Erythrocyte distribution wid th Auto (RBC) [Ratio]Ordered By: Mariana Kee on 03-14-2023 Erythrocyte distribution width (RBC) [Ratio] 13.3 % 11.9-15.3 [facility] Globulin Calc (S) [Mass/Vol] Ordered By: Mariana Kee on 03-14-2023 Globulin (S) [Mass/Vol] 2.0 g/dL [facility] Glucose [Mass/volume] in Ser um or PlasmaOrdered By: Mariana Kee on 03-14-2023 Glucose [Mass/Vol] 101 mg/dL 70-100 [facility] Comment on above: ADA recommended refe rence rangeRandom Glucose Reference Range is dependent on time and content of last meal. Glucose of more than 200 mg/dL in a nonstressed, ambulatory subject supports the diagnosis of Diabetes Mellitus. Hematocrit Auto (Bld) [Volum e fraction]Ordered By: Mariana Kee on 03-14-2023 Hematocrit (Bld) [Volume fraction] 37.4 % 34.0-46.4 [facility] Hemoglobin [Mass/volume] in BloodOrdered By: Mariana Kee on 03-14-2023 Hemoglobin (Bld) [Mass/Vol] 12.5 g/dL 11.8-15.4 [facility] Leukocytes [#/volume] correc cornelia for nucleated erythrocytes in Blood by Automated counOrdered By: Mariana Kee on 03-14-2023 WBC corrected for nucl RBC Auto (Bld) [#/Vol] 5.2 10*3/uL 3.8-11.6 [facility] Lipaseon 03-14-2023 Lipase [Catalytic activity/Vol] 21.0 U/L Normal 11.0-82.0 [facility] Comment on above: Result Comment: PERF ORMED BY: [place] [address] PATHOLOGIST GUILLOTINE TRIMMER GATO PEÑA M.D. Performed By: #### V [id number], TSH3 wRFLX, T4F, LIPID #### [facility] [address] [place] [address] [place] Lipase [Enzymatic activity/v olume] in Serum or PlasmaOrdered By: Mariana Kee on 03-14-2023 Lipase [Catalytic activity/Vol] 21.0 U/L 11.0-82.0 [facility] Lymphocytes Auto (Bld) [#/Vo l]Ordered By: Mariana Kee on 03-14-2023 Lymphocytes (Bld) [#/Vol] 1.9 10*3/uL 1.00-4.8 [facility] Lymphocytes/100 WBC Auto (Bl d)Ordered By: Mariana Kee on 03-14-2023 Lymphocytes/100 WBC (Bld) 37.2 % . [facility] MCH Auto (RBC) [Entitic mass ]Ordered By: Mariana Kee on 03-14-2023 MCH (RBC) [Entitic mass] 31.9 pg 24.7-34.3 [facility] MCHC Auto (RBC) [Mass/Vol]Or dered By: Mariana Kee on 03-14-2023 MCHC (RBC) [Mass/Vol] 33.5 g/dL 32.0-35.0 [facility] MCV Auto (RBC) [Entitic vol] Ordered By: Mariana Kee on 03-14-2023 MCV (RBC) [Entitic vol] 95.2 fL 80-100 [facility] Monocytes Auto (Bld) [#/Vol] Ordered By: Mariana Kee on 03-14-2023 Monocytes (Bld) [#/Vol] 0.6 10*3/uL 0.0-0.8 [facility] Monocytes/100 WBC Auto (Bld) Ordered By: Mariana Kee on 03-14-2023 Monocytes/100 WBC (Bld) 11.5 % . [facility] Neutrophils Auto (Bld) [#/Vo l]Ordered By: Mariana Kee on 03-14-2023 Neutrophils (Bld) [#/Vol] 2.4 10*3/uL 1.8-7.7 [facility] Neutrophils/100 WBC Auto (Bl d)Ordered By: Mariana Kee on 03-14-2023 Neutrophils/100 WBC (Bld) 45.7 % . [facility] No Panel InformationOrdered By: Mariana Kee on 03-14-2023 Estimated GFR (CKD-EPI) > 60.0 mL/Min [facility] Creatinine Clearance (Chem 49.17 [facility] Nucleated erythrocytes [Pres ence] in Blood by Automated countOrdered By: Mariana Kee on 03-14-2023 Nucleated RBC Auto Ql (Bld) 0.1 /100{WBC} 0-0.5 [facility] Platelet mean volume Auto (B ld) [Entitic vol]Ordered By: Mariana Kee on 03-14-2023 Platelet mean volume (Bld) [Entitic vol] 8.7 fL 6.3-10.7 [facility] Platelets Auto (Bld) [#/Vol] Ordered By: Mariana Kee on 03-14-2023 Platelets (Bld) [#/Vol] 212 10*3/uL 150-450 [facility] Potassium [Moles/volume] in Serum or PlasmaOrdered By: Mariana Kee on 03-14-2023 Potassium [Moles/Vol] 4.2 mmol/L 3.5-5.1 [facility] Protein [Mass/volume] in Ser um or PlasmaOrdered By: Mariana Kee on 03-14-2023 Protein [Mass/Vol] 5.9 g/dL 6.4-8.9 [facility] RBC Auto (Bld) [#/Vol]Ordere d By: Mariana Kee on 03-14-2023 RBC (Bld) [#/Vol] 3.93 10*6/uL 3.60-5.00 [facility] Serum or plasma albumin/glob ulin mass ratioOrdered By: Mariana Kee on 03-14-2023 Albumin/Globulin [Mass ratio] 2.0 {ratio} [facility] Serum or plasma anion gap de terminationOrdered By: Mariana Kee on 03-14-2023 Anion gap [Moles/Vol] 9.1 mmol/L 6.0-15.0 [facility] Sodium [Moles/volume] in Ser um or PlasmaOrdered By: Mariana Kee on 03-14-2023 Sodium [Moles/Vol] 141 mmol/L 136-145 [facility] Urea nitrogen [Mass/volume] in Serum or PlasmaOrdered By: Mariana Kee on 03-14-2023 Urea nitrogen [Mass/Vol] 30 mg/dL 7-25 [facility] WBC Auto (Bld) [#/Vol]Ordere d By: Mariana Kee on 03-14-2023 WBC (Bld) [#/Vol] 5.2 10*3/uL 3.8-11.6 [facility] Automated erythrocytes count in urine sediment (number/area)Ordered By: Joe Davis on 03-12-2023 RBC Auto (Urine sed) [#/Area] 0-1 [HPF] 0-4 [facility] Automated leukocytes count i n urine sediment (number/area)Ordered By: Joe Davis on 03-12-2023 WBC Auto (Urine sed) [#/Area] 20-49 [HPF] 0-4 [facility] Bilirubin Test strip Ql (U)O rdered By: Joe Davis on 03-12-2023 Bilirubin Ql (U) Negative Negative [facility] Cholesterol [Mass/volume] in Serum or PlasmaOrdered By: Joe Davis on 03-12-2023 Cholesterol [Mass/Vol] 162 mg/dL Normal 140-200 [facility] Comment on above: Chol less than 200 m g/dl low riskChol 201-239 mg/dl borderline riskChol 240 mg/dl and greater high risk Result Comment: Chol less than 200 mg/dl low risk Chol 201-239 mg/dl borderline risk Chol 240 mg/dl and greater high risk Performed By: #### T SH3 wRFLX, [id number], LIPID #### [facility] [address] Cholesterol in LDL Calc [Mas s/Vol]Ordered By: Joe Davis on 03-12-2023 Cholesterol in LDL [Mass/Vol] 95 mg/dL 0-100 [facility] Comment on above: LDL ATP III CLASSIFI CATIONLDL less than 100 mg/dL OptimalLDL 100-129 mg/dL Near or above optimalLDL 130-159 mg/dL Borderline highLDL 160-189 mg/dL HighLDL greater than 189 mg/dL Very high Cholesterol in VLDL Calc [Ma ss/Vol]Ordered By: Joe Davis on 03-12-2023 Cholesterol in VLDL [Mass/Vol] 15 mg/dL [facility] Color Auto (U)Ordered By: Ab sofia Davis on 03-12-2023 Color (U) Yellow Yellow [facility] Dipstick and Microscopicon 1 Appearance (U) Clear Normal Clear [facility] Comment on above: Order Comment: Name Collection Type:: Clean-Voided Midstream Performed By: #### C UU, ADDONUAPLUS #### [facility] [address] [place] [address] [place] Bacteria,Urine None Seen Normal None Seen [facility] Comment on above: Order Comment: Name Collection Type:: Clean-Voided Midstream Performed By: #### C UU, ADDONUAPLUS #### [facility] [address] [place] [address] [place] Bilirubin,Urine Negative Normal Negative [facility] Comment on above: Order Comment: Name Collection Type:: Clean-Voided Midstream Performed By: #### C UU, ADDONUAPLUS #### [facility] [address] [place] [address] Color (U) Yellow Normal Yellow [facility] Comment on above: Order Comment: Name Collection Type:: Clean-Voided Midstream Performed By: #### C UU, ADDONUAPLUS #### [address] Glucose Ql (U) Normal Normal Normal [facility] Comment on above: Order Comment: Name Collection Type:: Clean-Voided Midstream Performed By: #### C UU, ADDONUAPLUS #### [facility] [address] [place] [address] [place] Hyaline Casts,Urine 0-8 Normal 0-8 [facility] Comment on above: Order Comment: Name Collection Type:: Clean-Voided Midstream Result Comment: PERF ORMED BY: [place] [address] PATHOLOGIST GUILLOTINE TRIMMER GATO PEÑA M.D. Performed By: #### C UU, ADDONUAPLUS #### [facility] [address] [place] [address] [place] Ketones Ql (U) Negative Normal Negative [facility] Comment on above: Order Comment: Name Collection Type:: Clean-Voided Midstream Performed By: #### C UU, ADDONUAPLUS #### [facility] [address] [place] [address] Leukocyte esterase Test strip Ql (U) 4+ High Negative [facility] Comment on above: Order Comment: Name Collection Type:: Clean-Voided Midstream Performed By: #### C UU, ADDONUAPLUS #### [address] Nitrite,Urine Negative Normal Negative [facility] Comment on above: Order Comment: Name Collection Type:: Clean-Voided Midstream Performed By: #### C UU, ADDONUAPLUS #### [address] Occult Blood,Urine Negative Normal Negative [facility] Comment on above: Order Comment: Name Collection Type:: Clean-Voided Midstream Result Comment: PERF ORMED BY: [place] [address] PATHOLOGIST GUILLOTINE TRIMMER GATO PEÑA M.D. Performed By: #### C UU, ADDONUAPLUS #### [address] pH (U) 7.0 [pH] Normal 5.0-9.0 [facility] Comment on above: Order Comment: Name Collection Type:: Clean-Voided Midstream Performed By: #### C UU, ADDONUAPLUS #### [address] Protein,Urine Negative Normal Negative [facility] Comment on above: Order Comment: Name Collection Type:: Clean-Voided Midstream Performed By: #### C UU, ADDONUAPLUS #### [address] RBC LM.HPF (Urine sed) [#/Area] 0 /[HPF] Normal 0-4 [facility] Comment on above: Order Comment: Name Collection Type:: Clean-Voided Midstream Performed By: #### C UU, ADDONUAPLUS #### [address] Specificy [place],Urine 1.006 Normal 1.00 1-1.03 0 [facility] Comment on above: Order Comment: Name Collection Type:: Clean-Voided Midstream Performed By: #### C UU, ADDONUAPLUS #### [facility] [address] Squamous Epithelial Cell,Urine 0-1 Normal 0-2 [facility] Comment on above: Order Comment: Name Collection Type:: Clean-Voided Midstream Performed By: #### C UU, ADDONUAPLUS #### [facility] [address] Urobilinogen,Urine Normal Normal Normal [facility] Comment on above: Order Comment: Name Collection Type:: Clean-Voided Midstream Performed By: #### C UU, ADDONUAPLUS #### [address] WBC,Urine 20-49 High 0-4 [facility] Comment on above: Order Comment: Name Collection Type:: Clean-Voided Midstream Performed By: #### C UU, ADDONUAPLUS #### [address] ECG 12 lead ECGon 03-12-2023 ECG 12 lead ECG [facility] Main [place] [address] [place] [address] Electrocardiograph Report Signed Patient: Gail Almeida MR#: [id number] 250 : 1955 Acct:[id number] Age/Sex: 67 / F ADM Date: 03/11/23 Loc: Room: [address] [place] [address] Type: ADM IN Attending Dr: Joe Davis MD Ordering Provider: Joe Davis MD Date of Service: 03/12/2303/25/500 ECG/ECG 12 lead ECG: anti psychotic treatment Copies to: Test Reason : Blood Pressure : / mmHG Vent. Rate : 081 BPM Atrial Rate : 081 BPM P-R Int : 180 ms QRS Dur : 146 ms QT Int : 416 ms P-R-T Axes : 066 -69 071 degrees QTc Int : 483 ms Normal sinus rhythm Right bundle branch block Left anterior fascicular block Bifascicular block Septal infarct (cited on or before 12-MAR-2023) Abnormal ECG When compared with ECG of 07-OCT-2008 12:07, (RBBB and left anterior fascicular block) is now present Questionable change in initial forces of Septal leads Confirmed by ZAK BROWN DO ([id number]) on 03/12/2023 4:52:03 PM Referred By: Electronically Signed By:ZAK BROWN DO Transcribed By: MUS Signed By Zak Brown DO 03/12 1652 Normal [facility] Ketones Auto test strip (U) [Mass/Vol]Ordered By: Joe Davis on 03-12-2023 Ketones (U) [Mass/Vol] Negative Negative [facility] - UrinalysisOrder ed By: Joe Davis on 03-12-2023 Hyaline casts LM Ql (Urine sed) 0-8 [LPF] 0-8 [facility] Lipid Panelon 03-12-2023 LDL Cholesterol,Calculated 95 mg/dL Normal 0-100 [facility] Comment on above: Result Comment: LDL ATP III CLASSIFICATION LDL less than 100 mg/dL Optimal LDL 100-129 mg/dL Near or above optimal LDL 130-159 mg/dL Borderline high LDL 160-189 mg/dL High LDL greater than 189 mg/dL Very high Performed By: #### T SH3 wRFLX, [id number], LIPID #### [facility] [address] [place] [address] Triglyceride w/Reflex 76 mg/dL Normal 0-149 [facility] Comment on above: Result Comment: TRIG ATP III CLASSIFICATION TRIG less than 150 mg/dL Normal TRIG 150-199 mg/dL Borderline high TRIG 200-500 mg/dL High TRIG greater than 500 mg/dL Very high Standard traceable to the Center for Disease Conrtrol and Prevention (CDC) test method. Performed By: #### T SH3 wRFLX, [id number], LIPID #### [facility] [address] VLDL CHOLESTEROL 15 mg/dL Normal [facility] Comment on above: Performed By: #### T SH3 wRFLX, [id number], LIPID #### [facility] [address] Nitrite Test strip Ql (U)Ord ered By: Joe Davis on 03-12-2023 Nitrite Ql (U) Negative Negative [facility] Protein Auto test strip (U) [Mass/Vol]Ordered By: Joe Davis on 03-12-2023 Protein (U) [Mass/Vol] Negative Negative [facility] Serum or plasma high density lipoprotein (HDL) cholesterol measurementOrdered By: Joe Davis on 03-12-2023 Cholesterol in HDL [Mass/Vol] 52 mg/dL Normal 23-92 [facility] Comment on above: HDL CHOL ATP-III CLA SSIFICATION Cardiovascular RiskHDL > or equal to 60 mg/dL LOWHDL < 40 mg/dL HIGH Result Comment: HDL CHOL ATP-III CLASSIFICATION Cardiovascular Risk HDL > or equal to 60 mg/dL LOW HDL < 40 mg/dL HIGH Performed By: #### T SH3 wRFLX, [id number], LIPID #### [facility] [address] Serum or plasma total choles terol/high density lipoprotein (HDL) cholesterol mass ratOrdered By: Joe Davis on 03-12-2023 Cholesterol.total/Judy sterol in HDL [Mass ratio] 3.1 {ratio} Normal <5.0 [facility] Comment on above: Performed By: #### T SH3 wRFLX, [id number], LIPID #### [facility] [address] Specific gravity Auto test s trip (U) [Rel density]Ordered By: Joe Davis on 03-12-2023 Specific gravity (U) [Rel density] 1.006 1.001-1.03 0 [facility] Squamous epithelial cells de tection in urine sediment by light microscopyOrdered By: Joe Davis on 03-12-2023 Epithelial cells.squamous LM Ql (Urine sed) 0-1 [HPF] 0-2 [facility] Thyroid Stim Hormone w/Rflxo n 03-12-2023 Thyroid Stim Hormone w/Rflx 0.91 u[iU]/mL Normal 0.45-5.33 [facility] Comment on above: Performed By: #### T SH3 wRFLX, [id number], LIPID #### [facility] [address] Thyrotropin [Units/volume] i n Serum or PlasmaOrdered By: Joe Davis on 03-12-2023 TSH Qn 0.91 m[IU]/L 0.45-5.33 [facility] Triglyceride [Mass/volume] i n Serum or PlasmaOrdered By: Joe Davis on 03-12-2023 Triglyceride [Mass/Vol] 76 mg/dL 0-149 [facility] Comment on above: TRIG ATP III CLASSIF ICATIONTRIG less than 150 mg/dL NormalTRIG 150-199 mg/dL Borderline highTRIG 200-500 mg/dL High TRIG greater than 500 mg/dL Very highStandard traceable to the Center for Disease Conrtrol and Prevention (CDC) test method. Urine Cultureon 03-12-2023 Bacteria identified Cx Nom (U) 50,000 colonies/ml mixed bacterial skin contaminants including mixed gram negative bacilli - 2 Days PERFORMED BY: [place] [address] PATHOLOGIST GUILLOTINE TRIMMER GATO PEÑA M.D. Normal [facility] Comment on above: Performed By: #### C UU, ADDONUAPLUS #### [facility] [address] [place] [address] Urine bacteria detection by automated methodOrdered By: Joe Davis on 03-12-2023 Bacteria Auto Ql (U) None seen None Seen [facility] Urine clarity by refractomet ry automatedOrdered By: Joe Davis on 03-12-2023 Clarity Refractometry automated (U) Clear Clear [facility] Urine culture routineOrdered By: Joe Davis on 03-12-2023 Bacteria identified Cx Nom (U) bacilli - 2 Days [facility] Urine glucose measurement by automated test strip (mass/volume)Ordered By: Joe Davis on 03-12-2023 Glucose Auto test strip (U) [Mass/Vol] Normal mg/dL Normal [facility] Urine hemoglobin detection b y automated test stripOrdered By: Joe Davis on 03-12-2023 Hemoglobin Auto test strip Ql (U) Negative Negative [facility] Urine leukocyte esterase det ection by automated test stripOrdered By: Joe Davis on 03-12-2023 Leukocyte esterase Auto test strip Ql (U) 4+ Negative [facility] Urobilinogen Auto test strip (U) [Mass/Vol]Ordered By: Joe Davis on 03-12-2023 Urobilinogen (U) [Mass/Vol] Normal mg/dL Normal [facility] Vitamin D 25 Hydroxy Totalon 03-12-2023 Vitamin D 25 Hydroxy Total 28.1 ng/mL Low 30-100 [facility] Comment on above: Result Comment: EDUARDO MIN D STATUS 25(OH)VITAMIN D RANGE (ng/mL) Deficient <20 Insufficient 20 to <30 Sufficient 30 to 100 Reference: Renée Woodward, Francisco CARPIO, et al. Evaluation,treatment, and prevention of vitamin D deficiency; an Endocrine Society clinical practice guideline. JCEM. 2010; 96(7):1911-30. PERFORMED BY: [place] [address] PATHOLOGIST GUILLOTINE TRIMMER GATO PEÑA M.D. Performed By: #### T SH3 wRFLX, [id number], LIPID #### [address] Vitamin D+Metabolites [Mass/ volume] in Serum or PlasmaOrdered By: Joe Davis on 03-12-2023 Vitamin D+Metabolites [Mass/Vol] 28.1 ng/mL 30-100 [facility] Comment on above: VITAMIN D STATUS 25( [place])VITAMIN D RANGE (ng/mL) Deficient <20 Insufficient 20 to <30Sufficient 30 to 100Reference: Renée Woodward, Francisco CARPIO, et al. Evaluation,treatment, and prevention of vitamin D deficiency; an Endocrine Society clinical practice guideline. JCEM. 2010; 96(7):1911-30. pH Auto test strip (U)Ordere d By: Joe Davis on 03-12-2023 pH (U) 7.0 [pH] 5.0-9.0 [facility] Lithiumon 03-11-2023 Moneta [Moles/Vol] 0.50 mmol/L Low 0.60-1.20 [facility] Comment on above: Order Comment: ORDER ING PROVIDER DR. BEE Result Comment: PERF ORMED BY: [facility] [address] [place] [address] PATHOLOGIST GUILLOTINE TRIMMER GATO PEÑA M.D. Performed By: #### V [id number], TSH3 wRFLX, T4F, LIPID #### [facility] [address] [place] [Moles/volume] in Se rum or PlasmaOrdered By: NON STAFF on 03-11-2023 Moneta [Moles/Vol] 0.50 mmol/L 0.60-1.20 [facility] Cult,Genitalon 02-03-2023 Cult,Genital Specimen Description .VAGINA Culture ENTERIC TERRANCE PRESENT STREPTOCOCCI, BETA HEMOLYTIC GROUP B ISOLATED NORMAL URO-GENITAL TERRANCE LIGHT GROWTH NEGATIVE FOR NEISSERIA GONORRHOEAE Report Status FINAL 02/03/2023 Normal [facility] Comment on above: Performed By: #### G EC #### [employer] [address] [place] [id number] Humidifier Attendant: Tej Locke MD [facility] [address] [place] [address] Humidifier Attendant: Emery Miller MD Vaginitis DNA Probeon 2022 Rosa Negative Normal NEG [facility] Comment on above: Result Comment: for Rosa sp. Method of testing is a DNA probe intended for detection and identification of Rosa species, Gardnerella vaginalis, and Trichomonas vaginalis nucleic acid in vaginal fluid specimens from patients with symptoms of vaginitis/vaginosis. Performed By: #### V AGP #### [employer] [facility] [place] [address] Humidifier Attendant: Tej Locke MD [facility] [address] [place] [address] [place] [address] Humidifier Attendant: Emery Miller MD Gardnerella Negative Normal [facility] Comment on above: Result Comment: for Gardnerella vaginalis Performed By: #### V AGP #### [place] [address] [place] [address] Humidifier Attendant: Tej Locke MD [facility] [address] [place] [address] [place] [address] Humidifier Attendant: Emery Miller MD Trichomonas Negative [facility] Comment on above: Result Comment: for Trichomonas Vaginalis Performed By: #### V AGP #### [address] [address] Humidifier Attendant: Tej Locke MD [facility] [address] [place] [address] Dr. [place] [facility] Humidifier Attendant: Emery Miller MD Vaginitis DNA Probeon 2022 Source .VAGINAL SWAB Normal [facility] Comment on above: Performed By: #### V AGP #### [place] [address] [place] [address] Humidifier Attendant: Tej Locke MD [facility] [address] [place] [address] [place] [address] Humidifier Attendant: Emery Miller MD XR shoulder RT min 2V*on XR shoulder RT min 2V* [facility] Main [address] [address] XRay Report Signed Patient: Gail Almeida MR#: [id number] 250 : 1955 Acct:[id number] Age/Sex: 67 / F ADM Date: 12/12/22 Loc: [facility] Room: Type: [facility] CLI Attending Dr: Emory Adame DO Copies to: Emory A Wendi, DO Ordering Provider: Emory Adame DO Date of Service: 12/12/22 XR/XR shoulder RT min 2V*: Other closed displaced fracture of proximal end of right hum XR shoulder RT min 2V* 12/12/2022 1:42 PM SIGNS AND SYMPTOMS: Status post right proximal humerus fracture, hardware fixation, follow-up PROTOCOL: Frontal, Grashey, and scapular Y views of the right shoulder. COMPARISON: 10/31/2022 FINDINGS: There is hardware fixation of the right humeral head and proximal humeral shaft. There is no hardware complication. There are bony fragments within the rotator interval which have migrated the prior exam. The acromioclavicular joint and glenohumeral joint are preserved. The visualized right hemithorax is grossly intact. XR/XR shoulder RT min 2V* IMPRESSION: There is hardware fixation of the right humeral head and proximal humeral shaft. There is no hardware complication. There are bony fragments within the rotator interval which have migrated the prior exam. Impression dictated by: Janis Jett M.D.12/12/2022 4:03 PM Dictation Location: [place] [address] Transcribed By: [facility] 12/12/22 1603 Dictated By: Janis Jett II, MD 12/12/22 1600 Signed By: 12/12/22 1603 [facility] XR shoulder RT min 2V* [facility] [employer] Other XR shoulder RT min 2V* [facility] Main [facility] [employer] Other XR shoulder RT min 2V* [address] [place] [address] [employer] Other XR shoulder RT min 2V* [place], [place] [address] [address] [employer] Other XR shoulder RT min 2V* XRay Report N [facility] [employer] Other XR shoulder RT min 2V* Signed No rt [employer] Other XR shoulder RT min 2V* Patient: Mary Anne Almeida MR#: [id number] [facility] [employer] Other XR shoulder RT min 2V* 250 [employer] Other XR shoulder RT min 2V* : 1955 Acct:[id number] [employer] Other XR shoulder RT min 2V* Age/Sex: 67 / F A DM Date: 12/12/22 [employer] Other XR shoulder RT min 2V* Loc: [facility] Room: T ype: REG CLI [employer] Other XR shoulder RT min 2V* Attending Dr: Neftali Adame DO [employer] Other XR shoulder RT min 2V* Copies to: Emory Adame DO [employer] Other XR shoulder RT min 2V* Ordering Provider : Emory Adame DO [employer] Other XR shoulder RT min 2V* Date of Service: 12/12/22 [employer] Other XR shoulder RT min 2V* XR/XR shoulder RT min 2V*: Other closed displaced fracture of proximal [employer] Other XR shoulder RT min 2V* end of right hum [employer] Other XR shoulder RT min 2V* XR shoulder RT mi n 2V* 12/12/2022 1:42 PM [employer] Other XR shoulder RT min 2V* SIGNS AND SYMPTOM S: Status post right proximal humerus fracture, hardware fixation, follow-up [employer] Other XR shoulder RT min 2V* PROTOCOL: Frontal , Grashey, and scapular Y views of the right shoulder. [employer] Other XR shoulder RT min 2V* COMPARISON: 10/31/2022 [employer] Other XR shoulder RT min 2V* FINDINGS: No [employer] Other XR shoulder RT min 2V* There is hardware fixation of the right humeral head and proximal humeral shaft. There is no [employer] Other XR shoulder RT min 2V* hardware complica tion. There are bony fragments within the rotator interval which have migrated the [employer] Other XR shoulder RT min 2V* prior exam. The acromioclavicular joint and glenohumeral joint are preserved. The visualized right [employer] Other XR shoulder RT min 2V* hemithorax is la ssly intact. [employer] Other XR shoulder RT min 2V* 7 XR/XR shoulder RT min 2V* [employer] Other XR shoulder RT min 2V* IMPRESSION: N [employer] Other XR shoulder RT min 2V* hardware complication. [employer] Other XR shoulder RT min 2V* There are bony fr agments within the rotator interval which have migrated the prior exam. [employer] Other XR shoulder RT min 2V* Impression dictat ed by: Janis Jett M.D.12/12/2022 4:03 PM [employer] Other XR shoulder RT min 2V* Dictation Locatio n: [facility]-12 [employer] Other XR shoulder RT min 2V* Transcribed By: Alpa DUVALL 12/12/22 1603 [employer] Other XR shoulder RT min 2V* Dictated By: Janis Jett II, MD 12/12/22 1600 [employer] Other XR shoulder RT min 2V* Signed By: No rt [employer] Other XR shoulder RT min 2V* 12/12/22 1603 [employer] Other XR shoulder RT min 2V*on XR shoulder RT min 2V* [facility] [address] [place] [address] XRay Report Signed Patient: Gail Almeida MR#: [id number] 250 : 1955 Acct:[id number] Age/Sex: 67 / F ADM Date: 10/31/22 Loc: [facility] Room: Type: [facility] Attending Dr: Emory Adame DO Copies to: Emory Adame DO Ordering Provider: Emory Adame DO Date of Service: 10/31/22 XR/XR shoulder RT min 2V*: Other closed displaced fracture of proximal end of right hum RIGHT SHOULDER - - 3 views CLINICAL HISTORY: ORIF right humerus COMPARISON: Right shoulder 10/03/2022 FINDINGS: Hardware fixation is seen involving the right humeral neck without evidence of hardware complication. Fragmentation versus callus formation is noted involving the greater tubercle possibly representing healing response. XR/XR shoulder RT min 2V* IMPRESSION: FRAGMENTATION VERSUS CALCIFIED FORMATION IS NOTED INVOLVING THE GREATER TUBERCLE POSSIBLY REPRESENTING HEALING RESPONSE. FOLLOW-UP IS RECOMMENDED.. Impression dictated by: Yandel Lees Jr., D.O.10/31/2022 4:06 PM Dictation Location: [place] [address] Transcribed By: [facility] 10/31/22 1606 Dictated By: Yandel Lees Jr, DO 10/31/22 1604 Signed By: 10/31/22 1606 Normal [facility] XR shoulder RT min 2V* [facility] [employer] Other XR shoulder RT min 2V* [facility] [employer] Other XR shoulder RT min 2V* [address] [facility] [employer] Other XR shoulder RT min 2V* [place] [id number] [facility] [employer] Other XR shoulder RT min 2V* XRay Report N [facility] [employer] Other XR shoulder RT min 2V* [facility] [employer] Other XR shoulder RT min 2V* Patient: Mary Anne Almeida MR#: [id number] [employer] Other XR shoulder RT min 2V* 250 No rt [employer] Other XR shoulder RT min 2V* : 1955 Acct:[id number] [employer] Other XR shoulder RT min 2V* Age/Sex: 67 / F A DM Date: 10/31/22 [employer] Other XR shoulder RT min 2V* Loc: [facility] Room: T ype: SURGICAL SPECIALTY [facility] [employer] Other XR shoulder RT min 2V* Attending Dr: Neftali Adame DO [employer] Other XR shoulder RT min 2V* Copies to: Emory Adame DO [employer] Other XR shoulder RT min 2V* Ordering Provider : Emory Adame DO [employer] Other XR shoulder RT min 2V* Date of Service: 10/31/22 [employer] Other XR shoulder RT min 2V* XR/XR shoulder RT min 2V*: Other closed displaced fracture of proximal [employer] Other XR shoulder RT min 2V* end of right hum [employer] Other XR shoulder RT min 2V* RIGHT SHOULDER - - 3 views [employer] Other XR shoulder RT min 2V* CLINICAL HISTORY: ORIF right humerus [employer] Other XR shoulder RT min 2V* COMPARISON: Right shoulder 10/03/2022 [employer] Other XR shoulder RT min 2V* FINDINGS: [employer] Other XR shoulder RT min 2V* Hardware fixation is seen involving the right humeral neck without evidence of hardware [employer] Other XR shoulder RT min 2V* complication. Fragmentation versus callus formation is noted involving the greater tubercle [employer] Other XR shoulder RT min 2V* possibly represen ting healing response. [employer] Other XR shoulder RT min 2V* 1 XR/XR shoulder RT min 2V* [employer] Other XR shoulder RT min 2V* IMPRESSION: N [employer] Other XR shoulder RT min 2V* FRAGMENTATION PETER HARRY CALCIFIED FORMATION IS NOTED INVOLVING THE GREATER TUBERCLE POSSIBLY [employer] Other XR shoulder RT min 2V* REPRESENTING HEAL ING RESPONSE. FOLLOW-UP IS RECOMMENDED.. [employer] Other XR shoulder RT min 2V* Impression dictat ed by: Yandel Lees Jr., D.OLore10/31/2022 4:06 PM [employer] Other XR shoulder RT min 2V* Dictation Locatio n: RADIO-PC-08 [employer] Other XR shoulder RT min 2V* Transcribed By: Alpa DUVALL 10/31/22 1606 [employer] Other XR shoulder RT min 2V* Dictated By: Isrrael Lees Jr, DO 10/31/22 1604 [employer] Other XR shoulder RT min 2V* Signed By: No rt [employer] Other XR shoulder RT min 2V* 10/31/22 1606 [employer] Other LITHIUMon 10-27-2022 Moneta (Eskalith(R)), Serum 0.9 mmol/L Normal 0.5-1.2 [facility] Comment on above: Result Comment: A co ncentration of 0.5-0.8 mmol/L is advised for long-term use; concentrations of up to 1.2 mmol/L may be necessary during acute treatment. Detection Limit = 0.1 <0.1 indicates None Detected Performed By: #### L ITHIUM #### [facility] [address] [address] [address] Beny Johnson CREATININEon 10-26-2022 Creatinine [Mass/Vol] 1.43 mg/dL Critically high 0.55-1.02 [facility] Comment on above: Performed By: #### T SH, CREA #### [facility] [address] [address] [address] Beny Johnson EGFR-AF TUVALUAN 45 mL/min/1.73m2 Critically low >=60 [facility] Comment on above: Performed By: #### T SH, CREA #### [facility] [address] [address] [address] Beny Johnson EGFR-NON AF TUVALUAN 37 mL/min/1.73m2 Critically low >=60 [facility] Comment on above: Performed By: #### T SH, CREA #### [facility] [address] [place] [address] Dr. Beny Johnson TSHon 10-26-2022 TSH 1.213 uIU/mL Normal 0.358-3.74 0 [facility] Comment on above: Performed By: #### T SH, CREA #### [facility] [address] [place] [address] Dr. Beny Johnson XR shoulder RT min 2V*on XR shoulder RT min 2V* [facility] [place] [address] XRay Report Signed Patient: Gail Almeida MR#: [id number] 250 : 1955 Acct:[id number] Age/Sex: 66 / F ADM Date: 10/03/22 Loc: [facility] [place] Room: Type: [facility] CLI Attending Dr: Emory Adame DO Copies to: Emory Adame DO Ordering Provider: Emory Adame DO Date of Service: 10/03/22 XR/XR shoulder RT min 2V*: Other closed displaced fracture of proximal end of right hum RIGHT SHOULDER - 3 views CLINICAL HISTORY: Follow-up proximal humerus fracture COMPARISON: 09/13/2022 AP, Y and Grashey views were obtained. There is osteopenia. A proximal humerus fracture is again noted. There is no significant change in alignment of the fracture fragments within limits of slightly different positioning. No new fractures or dislocation are seen. No soft tissue abnormalities are noted. XR/XR shoulder RT min 2V* IMPRESSION: SIMILAR PROXIMAL HUMERUS FRACTURE AND FIXATION HARDWARE Impression dictated by: Lu Gonzales M.D.10/03/2022 3:28 PM Dictation Location: [place] [address] Transcribed By: ZITA 10/03/22 152 Dictated By: Lu Gonzales MD 10/03/22 1525 Signed By: 10/03/22 152 Normal [facility] Hematocrit Auto (Bld) [Volum e fraction]Ordered By: Emory Adame on 09-13-2022 Hematocrit (Bld) [Volume fraction] 36.3 % 34.0-46.4 [facility] Hemoglobin [Mass/volume] in BloodOrdered By: Emory Adame on 09-13-2022 Hemoglobin (Bld) [Mass/Vol] 11.6 g/dL 11.8-15.4 [facility] Hemoglobin and Hematocriton 09-13-2022 Hematocrit (Bld) [Volume fraction] 36.3 % Normal 34.0-46.4 [facility] Comment on above: Result Comment: PERF ORMED BY: [place] [address] PATHOLOGIST GUILLOTINE TRIMMER GATO PEÑA M.D. Performed By: #### H H #### [facility] [address] [place] [address] Hemoglobin (Bld) [Mass/Vol] 11.6 g/dL Low 11.8-15.4 [facility] Comment on above: Performed By: #### H H #### [facility] [address] [place] [address] XR shoulder RT min 2V*on XR shoulder RT min 2V* [facility] Main [place] [address] [place] [address] XRay Report Signed Patient: Gail Almeida MR#: [id number] 250 : 1955 Acct:[id number] Age/Sex: 66 / F ADM Date: 09/13/22 Loc: 4N Room: [address] [place] [address] Type: [facility] [place] [facility] Attending Dr: Emory Adame DO Copies to: Emory Adame DO Ordering Provider: Emory Adame DO Date of Service: 09/13/22 XR/XR shoulder RT min 2V*: Post op ([id number]) XR/XR shoulder RT min 2V*: RIGHT PROXIMAL HUMERUS ORIF CLINICAL DATA: Right proximal humerus fracture COMPARISON: 09/10/2022 PORTABLE RIGHT SHOULDER - 3 images Three spot views of the shoulder were obtained following placement of a lateral plate and screws along the proximal humerus. There is improved alignment of the fracture fragments at the greater tuberosity fracture seen preoperatively. DAP: 0.854 Gy cm2 RIGHT SHOULDER - 3 views AP, lateral and oblique views were obtained. There is a new lateral plate and multiple screws at the proximal humerus. There is one screw superiorly that does not cross the plate. There is redemonstr ation of a fracture involving the greater tuberosity with improved alignment of fracture fragments. There is no new fracture or dislocation. Lateral postoperative subcutaneous air is present. XR/XR shoulder RT min 2V* IMPRESSION: STATUS POST INTERNAL FIXATION OF PROXIMAL HUMERUS FRACTURE. Impression dictated by: Lu Gonzales M.D.09/13/2022 2:38 PM Dictation Location: [place] [address] Transcribed By: [facility] 09/13/22 143 Dictated By: Lu Gonzales MD 09/13/221432 Signed By: 09/13/22 1438 Normal [facility] Basic Metabolic Panelon 09-01 Anion gap [Moles/Vol] 11.6 mmol/L Normal 6.0-15.0 [facility] Comment on above: Performed By: #### V [id number], TSH3 wRFLX, T4F, LIPID #### [address] Calcium [Mass/Vol] 10.4 mg/dL High 8.6-10.3 [facility] Comment on above: Result Comment: PERF ORMED BY: [place] [address] PATHOLOGIST GUILLOTINE TRIMMER GATO PEÑA M.D. Performed By: #### V [id number], TSH3 wRFLX, T4F, LIPID #### [facility] [address] [place] [address] [place] Chloride [Moles/Vol] 113 mmol/L High 98-107 [facility] Comment on above: Performed By: #### V [id number], TSH3 wRFLX, T4F, LIPID #### [facility] [address] [place] [address] [place] CO2 [Moles/Vol] 22.2 mmol/L Normal 21.0-31.0 [facility] Comment on above: Performed By: #### V [id number], TSH3 wRFLX, T4F, LIPID #### [facility] [address] [place] [address] [place] Creatinine [Mass/Vol] 1.06 mg/dL Normal 0.60-1.20 [facility] Comment on above: Performed By: #### V [id number], TSH3 wRFLX, T4F, LIPID #### [facility] [address] [place] [address] [place] GFR/1.73 sq M.predicted MDRD (S/P/Bld) [Vol rate/Area] 58.298 mL/min/{1.73_m2} Normal [facility] Comment on above: Performed By: #### V [id number], TSH3 wRFLX, T4F, LIPID #### [facility] [address] [place] [address] [place] Glucose [Mass/Vol] 113 mg/dL High 70-100 [facility] Comment on above: Result Comment: [place] Glucose Reference Range is dependent on time and content of last meal. Glucose of more than 200 mg/dL in a nonstressed, ambulatory subject supports the diagnosis of Diabetes Mellitus. ADA recommended reference range Performed By: #### V [id number], TSH3 wRFLX, T4F, LIPID #### [facility] [address] Potassium [Moles/Vol] 4.8 mmol/L Normal 3.5-5.1 [facility] Comment on above: Performed By: #### V [id number], TSH3 wRFLX, T4F, LIPID #### [facility] [address] Sodium [Moles/Vol] 142 mmol/L Normal 136-145 [facility] Comment on above: Performed By: #### V [id number], TSH3 wRFLX, T4F, LIPID #### [facility] [address] Urea nitrogen [Mass/Vol] 24 mg/dL Normal 7-25 [facility] Comment on above: Performed By: #### V [id number], TSH3 wRFLX, T4F, LIPID #### [facility] [address] Basophils Auto (Bld) [#/Vol] Ordered By: Emory Adame on 09-11-2022 Basophils (Bld) [#/Vol] 0.1 10*3/uL 0.0-0.2 [facility] Basophils/100 WBC Auto (Bld) Ordered By: Emory Adame on 09-11-2022 Basophils/100 WBC (Bld) 0.9 % . [facility] Calcium [Mass/volume] in Ser um or PlasmaOrdered By: Emory Adame on 09-11-2022 Calcium [Mass/Vol] 10.4 mg/dL 8.6-10.3 [facility] Carbon dioxide, total [Moles /volume] in Serum or PlasmaOrdered By: Emory Adame on 09-11-2022 CO2 [Moles/Vol] 22.2 mmol/L 21.0-31.0 [facility] Chloride [Moles/volume] in S kishan or PlasmaOrdered By: Emory Adame on 09-11-2022 Chloride [Moles/Vol] 113 mmol/L 98-107 [facility] Complete Blood Count Auto Di ffon 09-11-2022 Basophils (Bld) [#/Vol] 0.1 10*3/uL Normal 0.0-0.2 [facility] Comment on above: Result Comment: PERF ORMED BY: [place] [address] PATHOLOGIST GUILLOTINE TRIMMER GATO PEÑA M.D. Performed By: #### V [id number], TSH3 wRFLX, T4F, LIPID #### [address] Basophils/100 WBC (Bld) 0.9 % Normal . [facility] Comment on above: Performed By: #### V [id number], TSH3 wRFLX, T4F, LIPID #### [address] Eosinophils (Bld) [#/Vol] 0.1 10*3/uL Normal 0.0-0.45 [facility] Comment on above: Performed By: #### V [id number], TSH3 wRFLX, T4F, LIPID #### [address] Eosinophils/100 WBC (Bld) 1.8 % Normal . [facility] Comment on above: Performed By: #### V [id number], TSH3 wRFLX, T4F, LIPID #### [address] Erythrocyte distribution width (RBC) [Ratio] 13.8 % Normal 11.9-15.3 [facility] Comment on above: Performed By: #### V [id number], TSH3 wRFLX, T4F, LIPID #### [address] Hematocrit (Bld) [Volume fraction] 36.8 % Normal 34.0-46.4 [facility] Comment on above: Performed By: #### V [id number], TSH3 wRFLX, T4F, LIPID #### [address] Hemoglobin (Bld) [Mass/Vol] 12.2 g/dL Normal 11.8-15.4 [facility] Comment on above: Performed By: #### V [id number], TSH3 wRFLX, T4F, LIPID #### [address] Lymphocytes (Bld) [#/Vol] 1.1 10*3/uL Normal 1.00-4.8 [facility] Comment on above: Performed By: #### V [id number], TSH3 wRFLX, T4F, LIPID #### [address] Lymphocytes/100 WBC (Bld) 19.4 % Normal . [facility] Comment on above: Performed By: #### V [id number], TSH3 wRFLX, T4F, LIPID #### [address] MCH (RBC) [Entitic mass] 31.8 pg Normal 24.7-34.3 [facility] Comment on above: Performed By: #### V [id number], TSH3 wRFLX, T4F, LIPID #### [address] MCV (RBC) [Entitic vol] 95.7 fL Normal 80-100 [facility] Comment on above: Performed By: #### V [id number], TSH3 wRFLX, T4F, LIPID #### [address] Mean Corpuscular HGB Conc 33.2 g/dL Normal 32.0-35.0 [facility] Comment on above: Performed By: #### V [id number], TSH3 wRFLX, T4F, LIPID #### [address] Monocytes (Bld) [#/Vol] 0.5 10*3/uL Normal 0.0-0.8 [facility] Comment on above: Performed By: #### V [id number], TSH3 wRFLX, T4F, LIPID #### [address] Monocytes/100 WBC (Bld) 8.0 % Normal . [facility] Comment on above: Performed By: #### V [id number], TSH3 wRFLX, T4F, LIPID #### [facility] [address] [place] [address] [place] Neutrophils (Bld) [#/Vol] 4.1 10*3/uL Normal 1.8-7.7 [facility] Comment on above: Performed By: #### V [id number], TSH3 wRFLX, T4F, LIPID #### [place] [address] [place] Neutrophils/100 WBC (Bld) 69.9 % Normal . [facility] Comment on above: Performed By: #### V [id number], TSH3 wRFLX, T4F, LIPID #### [address] NRBC% 0.1 /100{WBC} Normal 0-0.5 [facility] Comment on above: Performed By: #### V [id number], TSH3 wRFLX, T4F, LIPID #### [address] Platelet mean volume (Bld) [Entitic vol] 8.1 fL Normal 6.3-10.7 [facility] Comment on above: Performed By: #### V [id number], TSH3 wRFLX, T4F, LIPID #### [place] [address] [place] Platelets (Bld) [#/Vol] 303 10*3/uL Normal 150-450 [facility] Comment on above: Performed By: #### V [id number], TSH3 wRFLX, T4F, LIPID #### [facility] [address] [place] [address] [place] RBC (Bld) [#/Vol] 3.85 10*6/uL Normal 3.60-5.00 [facility] Comment on above: Performed By: #### V [id number], TSH3 wRFLX, T4F, LIPID #### [place] [address] [place] WBC (Bld) [#/Vol] 5.9 10*3/uL Normal 3.8-11.6 [facility] Comment on above: Performed By: #### V [id number], TSH3 wRFLX, T4F, LIPID #### [facility] [address] Creatinine [Mass/volume] in Serum or PlasmaOrdered By: Emory Adame on 09-11-2022 Creatinine [Mass/Vol] 1.06 mg/dL 0.60-1.20 [facility] Eosinophils Auto (Bld) [#/Vo l]Ordered By: Emory Admae on 09-11-2022 Eosinophils (Bld) [#/Vol] 0.1 10*3/uL 0.0-0.45 [facility] Eosinophils/100 WBC Auto (Bl d)Ordered By: Emory Adame on 09-11-2022 Eosinophils/100 WBC (Bld) 1.8 % . [facility] Erythrocyte distribution wid th Auto (RBC) [Ratio]Ordered By: Emory Adame on 09-11-2022 Erythrocyte distribution width (RBC) [Ratio] 13.8 % 11.9-15.3 [facility] Glucose [Mass/volume] in Ser um or PlasmaOrdered By: Emory Adame on 09-11-2022 Glucose [Mass/Vol] 113 mg/dL 70-100 [facility] Comment on above: ADA recommended refe rence rangeRandom Glucose Reference Range is dependent on time and content of last meal. Glucose of more than 200 mg/dL in a nonstressed, ambulatory subject supports the diagnosis of Diabetes Mellitus. Hematocrit Auto (Bld) [Volum e fraction]Ordered By: Emory Adame on 09-11-2022 Hematocrit (Bld) [Volume fraction] 36.8 % 34.0-46.4 [facility] Hemoglobin [Mass/volume] in BloodOrdered By: Emory Adame 09-11-2022 Hemoglobin (Bld) [Mass/Vol] 12.2 g/dL 11.8-15.4 [facility] Leukocytes [#/volume] correc cornelia for nucleated erythrocytes in Blood by Automated counOrdered By: Emory Adame on 09-11-2022 WBC corrected for nucl RBC Auto (Bld) [#/Vol] 5.9 10*3/uL 3.8-11.6 [facility] Lymphocytes Auto (Bld) [#/Vo l]Ordered By: Emory Adame on 09-11-2022 Lymphocytes (Bld) [#/Vol] 1.1 10*3/uL 1.00-4.8 [facility] Lymphocytes/100 WBC Auto (Bl d)Ordered By: Emory Adame on 09-11-2022 Lymphocytes/100 WBC (Bld) 19.4 % . [facility] MCH Auto (RBC) [Entitic mass ]Ordered By: Emory Adame on 09-11-2022 MCH (RBC) [Entitic mass] 31.8 pg 24.7-34.3 [facility] MCHC Auto (RBC) [Mass/Vol]Or dered By: Emory Adame on 09-11-2022 MCHC (RBC) [Mass/Vol] 33.2 g/dL 32.0-35.0 [facility] MCV Auto (RBC) [Entitic vol] Ordered By: Emory Adame on 09-11-2022 MCV (RBC) [Entitic vol] 95.7 fL 80-100 [facility] Monocytes Auto (Bld) [#/Vol] Ordered By: Emory Adame on 09-11-2022 Monocytes (Bld) [#/Vol] 0.5 10*3/uL 0.0-0.8 [facility] Monocytes/100 WBC Auto (Bld) Ordered By: Emory Adame on 09-11-2022 Monocytes/100 WBC (Bld) 8.0 % . [facility] Neutrophils Auto (Bld) [#/Vo l]Ordered By: Emory Adame on 09-11-2022 Neutrophils (Bld) [#/Vol] 4.1 10*3/uL 1.8-7.7 [facility] Neutrophils/100 WBC Auto (Bl d)Ordered By: Emory Adame on 09-11-2022 Neutrophils/100 WBC (Bld) 69.9 % . [facility] No Panel InformationOrdered By: Emory Adame on 09-11-2022 Estimated GFR (CKD-EPI) 58.298 mL/Min [facility] Creatinine Clearance (Chem N/A [facility] Nucleated erythrocytes [Pres ence] in Blood by Automated countOrdered By: Emory Adame on 09-11-2022 Nucleated RBC Auto Ql (Bld) 0.1 /100{WBC} 0-0.5 [facility] Platelet mean volume Auto (B ld) [Entitic vol]Ordered By: Emory Adame on 09-11-2022 Platelet mean volume (Bld) [Entitic vol] 8.1 fL 6.3-10.7 [facility] Platelets Auto (Bld) [#/Vol] Ordered By: Emory Adame on 09-11-2022 Platelets (Bld) [#/Vol] 303 10*3/uL 150-450 [facility] Potassium [Moles/volume] in Serum or PlasmaOrdered By: Emory Adame on 09-11-2022 Potassium [Moles/Vol] 4.8 mmol/L 3.5-5.1 [facility] RBC Auto (Bld) [#/Vol]Ordere d By: Emory Adame on 09-11-2022 RBC (Bld) [#/Vol] 3.85 10*6/uL 3.60-5.00 [facility] Serum or plasma anion gap de terminationOrdered By: Emory Adame on 09-11-2022 Anion gap [Moles/Vol] 11.6 mmol/L 6.0-15.0 [facility] Sodium [Moles/volume] in Ser um or PlasmaOrdered By: Emroy Adame on 09-11-2022 Sodium [Moles/Vol] 142 mmol/L 136-145 [facility] Urea nitrogen [Mass/volume] in Serum or PlasmaOrdered By: Emory Adame on 09-11-2022 Urea nitrogen [Mass/Vol] 24 mg/dL 7-25 [facility] WBC Auto (Bld) [#/Vol]Ordere d By: Emory Adame on 09-11-2022 WBC (Bld) [#/Vol] 5.9 10*3/uL 3.8-11.6 [facility] XR shoulder RT min 2V*on XR shoulder RT min 2V* [facility] [address] [place] [address] XRay Report Signed Patient: Gail Almeida MR#: [id number] 250 : 1955 Acct:[id number] Age/Sex: 66 / F ADM Date: 09/10/22 Loc: [facility] [place] Room: Type: [facility] Attending Dr: Emory Adame DO Copies to: Emory Adame DO Ordering Provider: Emory Adame DO Date of Service: 09/10/22 XR/XR shoulder RT min 2V*: Acute pain of right shoulder RIGHT SHOULDER - - 3 views CLINICAL HISTORY: Proximal right humerus fracture continued pain. COMPARISON: Right shoulder 09/06/2022 FINDINGS: Greater tuberosity fracture is once again demonstrated grossly unchanged in alignment when compared to the prior study. Sclerosis is seen involving the fracture site suggestive of healing response. AC joint appears intact. XR/XR shoulder RT min 2V* IMPRESSION: SCLEROSIS IS SEEN AT THE GREATER TUBEROSITY FRACTURE SITE SUGGESTIVE OF HEALING RESPONSE. NO CHANGE IN ALIGNMENT. Impression dictated by: Yandel Lees Jr., D.OLore09/10/2022 12:18 PM Dictation Location: [place] [address] Transcribed By: [facility] 09/10/22 1218 Dictated By: Yandel Lees Jr, DO 09/10/22 1215 Signed By: 09/10/22 1218 Normal [facility] XR shoulder RT min 2V* [facility] [employer] Other XR shoulder RT min 2V* [facility] [employer] Other XR shoulder RT min 2V* [address] [facility] [employer] Other XR shoulder RT min 2V* [place] [address] [facility] [employer] Other XR shoulder RT min 2V* XRay Report N [facility] [employer] Other XR shoulder RT min 2V* [facility] [employer] Other [facility] RT min 2V* Patient: Mary Anne Almeida MR#: [id number] [employer] Other XR shoulder RT min 2V* 250 [employer] Other XR shoulder RT min 2V* : 1955 Acct:[id number] [employer] Other XR shoulder RT min 2V* Age/Sex: 66 / F A DM Date: 09/10/22 [employer] Other XR shoulder RT min 2V* Loc: [facility] Room: ype: [facility] [employer] Other XR shoulder RT min 2V* Attending Dr: Neftali Adame DO [employer] Other XR shoulder RT min 2V* Copies to: Emory Adame DO [employer] Other XR shoulder RT min 2V* Ordering Provider : Emory Adame DO [employer] Other XR shoulder RT min 2V* Date of Service: 09/10/22 [employer] Other XR shoulder RT min 2V* XR/XR shoulder RT min 2V*: Acute pain of right shoulder [employer] Other XR shoulder RT min 2V* RIGHT SHOULDER - - 3 views [employer] Other XR shoulder RT min 2V* CLINICAL HISTORY: Proximal right humerus fracture continued pain. [employer] Other XR shoulder RT min 2V* COMPARISON: Right shoulder 09/06/2022 [employer] Other XR shoulder RT min 2V* FINDINGS: [employer] Other XR shoulder RT min 2V* Greater tuberosit y fracture is once again demonstrated grossly unchanged in alignment when compared [employer] Other XR shoulder RT min 2V* to the prior stud y. Sclerosis is seen involving the fracture site suggestive of healing response. AC [employer] Other XR shoulder RT min 2V* joint appears intact. [employer] Other XR shoulder RT min 2V* 3 XR/XR shoulder RT min 2V* [employer] Other XR shoulder RT min 2V* IMPRESSION: N [employer] Other XR shoulder RT min 2V* SCLEROSIS IS SEEN AT THE GREATER TUBEROSITY FRACTURE SITE SUGGESTIVE OF HEALING RESPONSE. NO CHANGE [employer] Other XR shoulder RT min 2V* IN ALIGNMENT. [employer] Other XR shoulder RT min 2V* Impression dictat ed by: Yandel Lees Jr., DLoreOLore09/10/2022 12:18 PM [employer] Other XR shoulder RT min 2V* Dictation Locatio n: RADIO-PC-12 [employer] Other XR shoulder RT min 2V* Transcribed By: Alpa DUVALL 09/10/22 1218 [employer] Other XR shoulder RT min 2V* Dictated By: Isrrael Lees Jr, DO 09/10/22 Count includes the [facility]5 [employer] Other XR shoulder RT min 2V* Signed By: [employer] Other XR shoulder RT min 2V* 09/10/22 1218 [employer] Other XR SHOULDER RT 1 Von 09-06-2 023 XR SHOULDER RT 1 V EXAM: XR SHOULDER RT 1 V HISTORY: Pain ; post reduction imaging COMPARISON: XR shoulder 09/06/2022 12:09 PM TECHNIQUE: FINDINGS: The humeral head remains anterior and inferior to the glenoid. No appreciable fracture of the glenoid rim. Stable displaced large fracture fragment from the greater tuberosity. IMPRESSION: 1. Persistent anterior-inferior glenohumeral dislocation and greater tuberosity fracture. Electronically authenticated by: HÉCTOR HO Date: 2022-09-06 15:02 Normal [facility] XR SHOULDER RT 1 V EXAM: XR SHOULDER RT 1 V HISTORY: Pain ; post reduction imaging COMPARISON: Prior shoulder radiographs from same date TECHNIQUE: FINDINGS: Humeral head remains inferior to the glenoid, but is not as medially located as initially seen. Large displaced fragment from the greater tuberosity. IMPRESSION: 1. Persistent inferior dislocation of the right humeral head and greater tuberosity fracture. Electronically authenticated by: HÉCTOR HO Date: 2022-09-06 15:01 Normal [facility] XR SHOULDER RT 1 V EXAM: XR SHOULDER RT 1 V HISTORY: Pain ; post reduction imaging COMPARISON: Right shoulder x-rays from same date TECHNIQUE: FINDINGS: The humeral head remains anterior and inferior to the glenoid. Displaced large fracture fragment from the greater tuberosity. IMPRESSION: 1. Persistent anterior-inferior glenohumeral dislocation and displaced greater tuberosity fracture. Electronically authenticated by: HÉCTOR HO Date: 2022-09-06 15:00 Normal [facility] XR SHOULDER RT 1 V EXAM: XR SHOULDER RT 1 V HISTORY: Pain ; postreduction imaging COMPARISON: Prior shoulder x-rays from same date TECHNIQUE: FINDINGS: Humeral head is positioned inferior to the glenoid. Stable displaced fracture from the greater tuberosity. IMPRESSION: 1. Persistent anterior inferior glenohumeral dislocation and greater tuberosity fracture. Electronically authenticated by: HÉCTOR HO Date: 2022-09-06 14:56 Normal [facility] XR SHOULDER RT 1 V EXAM: XR SHOULDER RT 1 V HISTORY: Pain ; post reduction attempt COMPARISON: XR shoulder right 09/06/2022 12:09 PM TECHNIQUE: FINDINGS: The humeral head remains anteriorly inferiorly dislocated from the glenoid fossa. Dislocated large bone fragment from the greater tuberosity. IMPRESSION: Stable appearance of right anterior inferior glenohumeral dislocation and greater tuberosity fracture. Electronically authenticated by: HÉCTOR HO Date: 2022-09-06 14:55 Normal [facility] LITHIUMon 08-23-2022 Moneta (Eskalith(R)), Serum 0.9 mmol/L Normal 0.5-1.2 [facility] Comment on above: Result Comment: A co ncentration of 0.5-0.8 mmol/L is advised for long-term use; concentrations of up to 1.2 mmol/L may be necessary during acute treatment. Detection Limit = 0.1 <0.1 indicates None Detected Performed By: #### L ITHIUM ####[facility] [address] [place] [address]Dr. Beny Johnson CREATININEon 08-22-2022 Creatinine [Mass/Vol] 1.17 mg/dL Critically high 0.55-1.02 [facility] Comment on above: Performed By: #### C ELA ####[facility] [address] [place], [place] [address]Dr. Beny Johnson EGFR-AF TUVALUAN 56 mL/min/1.73m2 Critically low >=60 [facility] Comment on above: Performed By: #### C ELA ####[facility] [address] [place], [place] [address]Dr. Beny Johnson EGFR-NON AF TUVALUAN 46 mL/min/1.73m2 Critically low >=60 [facility] Comment on above: Performed By: #### C ELA ####[facility] [address] [place], [place] [address]Dr. Beny Johnson Herpes 1+2 Molecularon 08-17 HSV-1, NAAT Negative Normal NEG [facility] Comment on above: Result Comment: HSV- 1 DNA not detected by nucleic acid amplification Performed By: #### H SVDNA #### [address] [id number] Humidifier Attendant: Tej Locke MD [facility] [address] [place] [address] [place] [address] Humidifier Attendant: Emery Mliler MD HSV-2, NAAT Negative Normal NEG [facility] Comment on above: Result Comment: HSV- 2 DNA not detected by nucleic acid amplification Performed By: #### H SVDNA #### [address] [address] Humidifier Attendant: Tej Locke MD [facility] [address] [place] [address] Humidifier Attendant: Emery Miller MD Vaginitis DNA Probeon 2022 Rosa Negative Normal [facility] Comment on above: Result Comment: for Rosa sp. Method of testing is a DNA probe intended for detection and identification of Rosa species, Gardnerella vaginalis, and Trichomonas vaginalis nucleic acid in vaginal fluid specimens from patients with symptoms of vaginitis/vaginosis. Performed By: #### V AGP #### [facility] [address] [place] [address] Humidifier Attendant: Tej Locke MD [facility] [address] [place] [address] [place] [address] Humidifier Attendant: Emery Miller MD Gardnerella Negative [facility] Comment on above: Result Comment: for Gardnerella vaginalis Performed By: #### V AGP #### [id number] [place] [address] Humidifier Attendant: Tej Locke MD [address] [place], [place] [id number] Humidifier Attendant: Emery Miller MD Trichomonas Negative [facility] Comment on above: Result Comment: for Trichomonas Vaginalis Performed By: #### V AGP #### [address] [place] [address] Humidifier Attendant: Tej Locke MD [address] [place], [place] [id number] Humidifier Attendant: Emery Miller MD Cytologyon 08-16-2022 Cytology (NOTE) INTERPRETATION Cervical material, (ThinPrep vial, Imaging-assisted review): Specimen Adequacy: Satisfactory for evaluation. Descriptive Diagnosis: Negative for intraepithelial lesion or malignancy. Kitchen Help Handyman: ROSY ARCHIBALD(ASCP) Electronically Signed Out /08/24/2022 Source: A: Cervical material, (ThinPrep vial, Imaging-assisted review) Clinical History Hysterectomy Z12.4 Encounter for screening for malignant neoplasm of cervix GYNECOLOGIC CYTOLOGY REPORT Patient Name: GAIL ALMEIDA [facility] Rec: [id number] Path Number: [id number] [facility] ANATOMIC PATHOLOG[facility] [address] [place], [place] [address] [facility] Comment on above: Performed By: #### P PPVP #### [address] [address] Humidifier Attendant: Tej Locke MD Herpes 1+2 Molecularon 08-16 Source: .VULVA Normal [facility] Comment on above: Performed By: #### H SVDNA #### [address] [id number] Humidifier Attendant: Tej Locke MD [facility] [address] [place] [address] [place] [address] Humidifier Attendant: Emery Miller MD Vaginitis DNA Probeon 2022 Source .VAGINAL SWAB Normal [facility] [place] [facility] Comment on above: Performed By: #### V AGP #### [address] [address] Humidifier Attendant: Tej Locke MD [facility] [address] [place] [address] [place] [address] Humidifier Attendant: Emery Miller MD LITHIUMon 08-04-2022 Moneta (Eskalith(R)), Serum 1.1 mmol/L Normal 0.5-1.2 [facility] Comment on above: Result Comment: A co ncentration of 0.5-0.8 mmol/L is advised for long-term use; concentrations of up to 1.2 mmol/L may be necessary during acute treatment. Detection Limit = 0.1 <0.1 indicates None Detected Performed By: #### L ITHIUM ####[facility] [address] [place], [place] [address]MbLore Beny Johnson CREATININEon 08-03-2022 Creatinine [Mass/Vol] 1.36 mg/dL Critically high 0.55-1.02 [facility] Comment on above: Performed By: #### C ELA, TSH ####[facility] [address] [place], [place] [address]Gb. Beny Johnson EGFR-AF TUVALUAN 47 mL/min/1.73m2 Critically low >=60 [facility] Comment on above: Performed By: #### Mikala MAHMOOD, TSH ####[facility] [address] [place], [place] [address]Gj. Beny Johnson EGFR-NON AF TUVALUAN 39 mL/min/1.73m2 Critically low >=60 [facility] Comment on above: Performed By: #### Mikala MAHMOOD, TSH ####[facility] [address] [place], [place] [address]Ii. Beny Johnson TSHon 08-03-2022 TSH 0.901 uIU/mL Normal 0.358-3.74 0 [facility] Comment on above: Performed By: #### Mikala MAHMOOD, TSH ####[facility] [address] [place], [place] [address]Rt. Beny Johnson Outside Recordson 10-25-2021 Outside Records [id number]: 127 Normal [facility] Consent for Procedure/Surger yon 10-13-2021 Consent for Procedure/Surgery [id number] :127 Normal [facility] Creatinineon 08-01-2021 Creatinine [Mass/Vol] 0.98 mg/dL High 0.50 - 0.90 mg/dL [facility] GFR >60 >60 mL/min [facility] GFR Non- 57 mL/min Low >60 [facility] Interpretation and review of laboratory results Abnormal [facility] - Chemistry and C hemistry - challengeon 08-01-2021 GFR/1.73 sq M.predicted MDRD (S/P/Bld) [Vol rate/Area] [facility] Comment on above: Average GFR for 60-6 9 years old: 85 mL/min/1.73sq m Chronic Kidney Disease: <60 mL/min/1.73sq m Kidney failure: <15 mL/min/1.73sq m eGFR calculated using average adult body mass. Additional eGFR calculator available at: http://www.Casengo/multiple_crcl_2012.htm Stage 1: Some kidney damage normal GFR Stage 2: Mild kidney damage GFR 60-89 Stage 3: Moderate kidney damage GFR 30-59 Stage 4: Severe kidney damage GFR 15-29 Stage 5: Severe kidney damage GFR <15 ESRD - chronic treatment by dialysis or transplant MRI BREAST BILATERAL W CONTR Feli 08-01-2021 No MRI evidence of malignancy. Mild left ductal ectasia as previously seen. BIRADS: BIRADS - CATEGORY 2 Benign Findings. Continued annual screening mammography is recommended. OVERALL ASSESSMENT - BENIGN [facility] EXAMINATION: MRI OF THE BILATERAL BREASTS WITHOUT AND WITH CONTRAST 08/01/2021 11:00 am: TECHNIQUE: Multiplanar multisequence MRI of the bilateral breasts were performed without and with the administration of 13 mL ProHance intravenous contrast. Data analysis was performed with color parametric mapping, image subtraction, and 3D reconstructions. COMPARISON: Bilateral mammogram on 11/11/2020 HISTORY: Palpable right breast lump at 4 o'clock. Benign left breast biopsy in 2020. FINDINGS: Both breasts contain heterogeneous fibroglandular tissue and demonstrate mild background parenchymal enhancement. Left breast: The left nipple appears inverted but this appears chronic when compared with multiple prior mammograms. Mildly dilated ducts extending from the nipple demonstrate T1 hyperintense signal compatible with hemorrhagic or proteinaceous contents. Several additional tiny T1 hyperintense foci noted within the breast parenchyma. Scattered small foci of enhancement appear benign. No suspicious lymph nodes. Right breast: No suspicious mass, non-mass enhancement, or other abnormality seen. No abnormal lymph nodes. Other: Mild pleural fluid bilaterally. A 1.5 x 0.9 cm focus of T2 hyperintense signal along the mediastinum is likely benign. [facility] Radiology Study observation (narrative) [employer] [facility] Work Phone: MRI BREAST BILATERAL W CONTR ASTOrdered By: Dee Soto on 08-01-2021 [employer] Work Phone: LINDA ERYN DIGITAL DIAGNOSTIC BILATERALOrdered By: She Spencer on 11-11-2020 1. No mammographic evidence of malignancy. BIRADS: BIRADS - CATEGORY 2 Benign Findings. Normal interval follow-up is recommended in 12 months. OVERALL ASSESSMENT - BENIGN A letter of notification will be sent to the patient regarding the results. [employer] recommends annual mammograms for women 40 years and older. [employer] Phone: EXAMINATION: DIAGNOS TIC DIGITAL BILATERAL BREASTS MAMMOGRAM WITH TOMOSYNTHESIS, 11/11/2020 10:17 am TECHNIQUE: Diagnostic mammography of the bilateral breasts was performed with tomosynthesis. 2D standard and 3D tomosynthesis combination imaging performed through both breasts. Computer aided detection was utilized in the interpretation of this exam. Views: MLO and CC views of both breasts, supplemented by medial to lateral view of the left breast. COMPARISON: February 25, 2019, April 04, 2020, December 11, 2017. Correlation is made to ultrasound dated April 04, 2020. HISTORY: ORDERING SYSTEM PROVIDED HISTORY: History of breast biopsy Post biopsy follow-up. Annual mammogram. Patient currently without complaints. FINDINGS: There are scattered areas of fibroglandular density. Right breast: No suspicious microcalcification, dominant mass, or architectural distortion. Left breast: No suspicious microcalcification, dominant mass, or architectural distortion. Circumscribed oval left retroareolar 5 mm masses stable since December 11, 2017. The biopsy clip from a procedure dated June 08, 2020 is not visible. [employer] Phone: [place], pn Incoming Radiant Results From [employer] - 11/11/2020 10:09 PM EDT EXAMINATION: DIAGNOSTIC DIGITAL BILATERAL BREASTS MAMMOGRAM WITH TOMOSYNTHESIS, 11/11/2020 10:17 am TECHNIQUE: Diagnostic mammography of the bilateral breasts was performed with tomosynthesis. 2D standard and 3D tomosynthesis combination imaging performed through both breasts. Computer aided detection was utilized in the interpretation of this exam. Views: MLO and CC views of both breasts, supplemented by medial to lateral view of the left breast. COMPARISON: February 25, 2019, April 04, 2020, December 11, 2017. Correlation is made to ultrasound dated April 04, 2020. HISTORY: ORDERING SYSTEM PROVIDED HISTORY: History of breast biopsy Post biopsy follow-up. Annual mammogram. Patient currently without complaints. FINDINGS: There are scattered areas of fibroglandular density. Right breast: No suspicious microcalcification, dominant mass, or architectural distortion. Left breast: No suspicious microcalcification, dominant mass, or architectural distortion. Circumscribed oval left retroareolar 5 mm masses stable since December 11, 2017. The biopsy clip from a procedure dated June 08, 2020 is not visible. IMPRESSION: 1. No mammographic evidence of malignancy. BIRADS: BIRADS - CATEGORY 2 Benign Findings. Normal interval follow-up is recommended in 12 months. OVERALL ASSESSMENT - BENIGN A letter of notification will be sent to the patient regarding the results. [employer] recommends annual mammograms for women 40 years and older. [employer] Phone: [employer] Phone: Moneta Levelon 07-21-2020 Moneta Date Last Dose NOT REPORTED [employer] Phone: Moneta Dose Amount NOT REPORTED [employer] Phone: Moneta Dose Time NOT REPORTED [employer] Phone: Moneta Lvl 0.9 mmol/L 0.6 - 1.2 mmol/L [employer] Phone: Lipid Panelon 07-18-2020 Cholesterol [Mass/Vol] 151 mg/dL <200 [employer] Phone: Comment on above: Cholesterol Guidelines: <200 Desirable 200-240 Borderline >240 Undesirable Cholesterol in HDL [Mass/Vol] 42 mg/dL >40 [employer] Phone: Comment on above: HDL Guidelines: <40 Undesirable 40-59 Borderline >59 Desirable Cholesterol in LDL [Mass/Vol] 79 mg/dL 0 - 130 mg/dL [employer] Phone: Comment on above: LDL Guidelines: <100 Desirable 100-129 Near to/above Desirable 130-159 Borderline >159 Undesirable Direct (measured) LDL and calculated LDL are not interchangeable tests. Cholesterol in VLDL [Mass/Vol] NOT REPORTED 1 - 30 mg/dL [employer] Phone: Cholesterol.total/Judy sterol in HDL [Mass ratio] 3.6 {ratio} <[address] [facility] Phone: Interpretation and review of laboratory results Abnormal [facility] Work Phone: Triglyceride [Mass/Vol] 151 mg/dL High <150 [facility] Work Phone: Comment on above: Triglyceride Guidelines: <150 Desirable 150-199 Borderline 200-499 High >499 Very high Based on AHA Guidelines for fasting triglyceride, March 2012. Moneta Levelon 07-14-2020 Interpretation and review of laboratory results Abnormal [facility] Phone: Moneta Date Last Dose NOT REPORTED [facility] Work Phone: Moneta Dose Amount NOT REPORTED [facility] [employer] Work Phone: Moneta Dose Time NOT REPORTED [facility] [employer] Phone: Moneta Lvl 1.6 mmol/L Critically high 0.6 - 1.2 mmol/L [facility] [employer] Phone: CBC with Diffon 07-09-2020 Abs. Basophil 0.06 k/uL Normal 0.00-0.20 [facility] Comment on above: Performed By: #### U MICAO, UAX, CDP, CP, LIPRF #### [employer] [address] [place] [address] Humidifier Attendant: Tej Locke MD Abs.Imm.Granulocyte <0.03 Normal 0.00-0.30 [facility] Comment on above: Performed By: #### U MICAO, UAX, CDP, CP, LIPRF #### [employer] [address] [place] [address] Humidifier Attendant: Tej Locke MD Abs.Neutrophil (Seg) 2.66 k/uL Normal 1.50-8.10 [facility] Comment on above: Performed By: #### U MICAO, UAX, CDP, CP, LIPRF #### [facility] [address] [place] [address] Humidifier Attendant: Tej Locke MD Basophils/100 WBC (Bld) 1 % Normal 0-2 M [facility] Comment on above: Performed By: #### U MICAO, UAX, CDP, CP, LIPRF #### [address] [address] Humidifier Attendant: Tej Locke MD Eosinophils (Bld) [#/Vol] 0.22 10*3/uL Normal 0.00-0.44 [facility] Comment on above: Performed By: #### U MICAO, UAX, CDP, CP, LIPRF #### [address] [address] Humidifier Attendant: Tej Locke MD Eosinophils/100 WBC (Bld) 4 % Normal 1-4 [facility] Comment on above: Performed By: #### U MICAO, UAX, CDP, CP, LIPRF #### [place] [address] Humidifier Attendant: Tej Locke MD Erythrocyte distribution width (RBC) [Ratio] 12.7 % Normal 11.8-14.4 [facility] Comment on above: Performed By: #### U MICAO, UAX, CDP, CP, LIPRF #### [place] [address] Humidifier Attendant: Tej Locke MD Hematocrit (Bld) [Volume fraction] 43.2 % Normal 36.3-47.1 [facility] Comment on above: Performed By: #### U MICAO, UAX, CDP, CP, LIPRF #### [place] [address] Humidifier Attendant: Tej Locke MD Hemoglobin (Bld) [Mass/Vol] 12.6 g/dL Normal 11.9-15.1 [facility] Comment on above: Performed By: #### U MICAO, UAX, CDP, CP, LIPRF #### [address] [address] Humidifier Attendant: Tej Locke MD Immature granulocytes/100 WBC (Bld) 0 % Normal 0 [facility] Comment on above: Performed By: #### U MICAO, UAX, CDP, CP, LIPRF #### [address] [address] Humidifier Attendant: Tej Locke MD Lymphocytes (Bld) [#/Vol] 1.92 10*3/uL Normal 1.10-3.70 [facility] Comment on above: Performed By: #### U MICAO, UAX, CDP, CP, LIPRF #### [address] [address] Humidifier Attendant: Tej Locke MD Lymphocytes/100 WBC (Bld) 36 % Normal 24-43 [facility] Comment on above: Performed By: #### U MICAO, UAX, CDP, CP, LIPRF #### [address] [address] Humidifier Attendant: Tej Locke MD MCH (RBC) [Entitic mass] 32.0 pg Normal 25.2-33.5 [facility] Comment on above: Performed By: #### U MICAO, UAX, CDP, CP, LIPRF #### [address] [address] Humidifier Attendant: Tej Locke MD MCHC (RBC) [Mass/Vol] 29.2 g/dL Normal 28.4-34.8 [facility] Comment on above: Performed By: #### U MICAO, UAX, CDP, CP, LIPRF #### [address] [address] Humidifier Attendant: Tej Locke MD MCV (RBC) [Entitic vol] 109.6 fL High 82.6-102.9 M [facility] Comment on above: Performed By: #### U MICAO, UAX, CDP, CP, LIPRF #### [address] [address] Humidifier Attendant: Tej Locke MD Monocytes (Bld) [#/Vol] 0.46 10*3/uL Normal 0.10-1.20 [facility] Comment on above: Performed By: #### U MICAO, UAX, CDP, CP, LIPRF #### [address] [address] Humidifier Attendant: Tej Locke MD Monocytes/100 WBC (Bld) 9 % Normal 3-12 M [facility] Comment on above: Performed By: #### U MICAO, UAX, CDP, CP, LIPRF #### [address] [address] Humidifier Attendant: Tej Locke MD Neutrophil (Seg) 50 % Normal 36-65 [facility] Comment on above: Performed By: #### U MICAO, UAX, CDP, CP, LIPRF #### [address] [address] Humidifier Attendant: Tej Locke MD NRBC Automated 0.0 per 100 WBC Normal 0.0 [facility] Comment on above: Performed By: #### U MICAO, UAX, CDP, CP, LIPRF #### [address] [address] Humidifier Attendant: Tej Locke MD Platelet mean volume (Bld) [Entitic vol] 11.5 fL Normal 8.1-13.5 [facility] Comment on above: Performed By: #### U MICAO, UAX, CDP, CP, LIPRF #### [address] [address] Humidifier Attendant: Tej Locke MD Platelets (Bld) [#/Vol] 256 10*3/uL Normal 138-453 [facility] Comment on above: Performed By: #### U MICAO, UAX, CDP, CP, LIPRF #### [facility] [address] [place] [address] Humidifier Attendant: Tej Locke MD RBC (Bld) [#/Vol] 3.94 10*6/uL Low 3.95-5.11 [facility] Comment on above: Performed By: #### U MICAO, UAX, CDP, CP, LIPRF #### [facility] [address] [place] [address] Humidifier Attendant: Tej Locke MD RBC morphology finding Nom (Bld) MACROCYTOSIS PRESENT Normal [facility] Comment on above: Performed By: #### U MICAO, UAX, CDP, CP, LIPRF #### [facility] [address] [place] [address] Humidifier Attendant: Tej Locke MD WBC (Bld) [#/Vol] 5.3 10*3/uL Normal 3.5-11.3 [facility] Comment on above: Performed By: #### U MICAO, UAX, CDP, CP, LIPRF #### [facility] [address] [place] [address] Humidifier Attendant: Tje Locke MD Comp Metabolic Profon 2020 (cont.) Normal [facility] Comment on above: Result Comment: Aver age GFR for 60-69 years old: 85 mL/min/1.73sq m Chronic Kidney Disease: <60 mL/min/1.73sq m Kidney failure: <15 mL/min/1.73sq m eGFR calculated using average adult body mass. Additional eGFR calculator available at: http://www.[employer].Albiorex/multiple_crcl_2012.htm Performed By: #### U MICAO, UAX, CDP, CP, LIPRF #### [facility] [address] [place] [address] Humidifier Attendant: Tej Locke MD Albumin [Mass/Vol] 4.3 g/dL Normal 3.5-5.2 [facility] Comment on above: Performed By: #### U MICAO, UAX, CDP, CP, LIPRF #### [address] [address] Humidifier Attendant: Tej Locke MD Albumin/Glob Ratio 1.5 Normal 1.0-2.5 [facility] Comment on above: Performed By: #### U MICAO, UAX, CDP, CP, LIPRF #### [address] [address] Humidifier Attendant: Tej Locke MD Alkaline Phos 129 U/L High 35-104 [facility] Comment on above: Performed By: #### U MICAO, UAX, CDP, CP, LIPRF #### [address] [address] Humidifier Attendant: Tej Locke MD ALT [Catalytic activity/Vol] 19 U/L Normal 5-33 [facility] Comment on above: Performed By: #### U MICAO, UAX, CDP, CP, LIPRF #### [address] [address] Humidifier Attendant: Tej Locke MD Anion gap [Moles/Vol] 10 mmol/L Normal 9-17 [facility] Comment on above: Performed By: #### U MICAO, UAX, CDP, CP, LIPRF #### [address] [address] Humidifier Attendant: Tej Locke MD AST [Catalytic activity/Vol] 18 U/L Normal <32 [facility] Comment on above: Performed By: #### U MICAO, UAX, CDP, CP, LIPRF #### [address] [address] Humidifier Attendant: Tej Locke MD Bilirubin [Mass/Vol] 0.21 mg/dL Low 0.3-1.2 [facility] Comment on above: Performed By: #### U MICAO, UAX, CDP, CP, LIPRF #### [facility] [address] [place] [address] Humidifier Attendant: Tej Locke MD Calcium [Mass/Vol] 10.9 mg/dL High 8.6-10.4 [facility] Comment on above: Performed By: #### U MICAO, UAX, CDP, CP, LIPRF #### [facility] [address] [place] [address] Humidifier Attendant: Tej Locke MD Chloride [Moles/Vol] 108 mmol/L High 98-107 [facility] Comment on above: Performed By: #### U MICAO, UAX, CDP, CP, LIPRF #### [facility] [address] [place] [address] Humidifier Attendant: Tej Locke MD CO2 [Moles/Vol] 21 mmol/L Normal 20-31 [facility] Comment on above: Performed By: #### U MICAO, UAX, CDP, CP, LIPRF #### [facility] [address] [place] [address] Humidifier Attendant: Tej Locke MD Creatinine [Mass/Vol] 1.29 mg/dL High 0.50-0.90 [facility] Comment on above: Performed By: #### U MICAO, UAX, CDP, CP, LIPRF #### [facility] [address] [place] [id number] Humidifier Attendant: Tej Locke MD GFR, Amer 51 mL/min Low >60 [facility] Comment on above: Performed By: #### U MICAO, UAX, CDP, CP, LIPRF #### [address] [address] Humidifier Attendant: Tej Locke MD GFR,non Amer 42 mL/min Low >60 [facility] Comment on above: Performed By: #### U MICAO, UAX, CDP, CP, LIPRF #### [address] [address] Humidifier Attendant: Tej Locke MD Glucose [Mass/Vol] 88 mg/dL Normal 70-99 [facility] Comment on above: Performed By: #### U MICAO, UAX, CDP, CP, LIPRF #### [address] [address] Humidifier Attendant: Tej Locke MD Potassium [Moles/Vol] 3.9 mmol/L Normal 3.7-5.3 [facility] Comment on above: Performed By: #### U MICAO, UAX, CDP, CP, LIPRF #### [address] [address] Humidifier Attendant: Tej Locke MD Protein [Mass/Vol] 7.1 g/dL Normal 6.4-8.3 [facility] Comment on above: Performed By: #### U MICAO, UAX, CDP, CP, LIPRF #### [address] [address] Humidifier Attendant: Tej Locke MD Sodium [Moles/Vol] 139 mmol/L Normal 135-144 [facility] Comment on above: Performed By: #### U MICAO, UAX, CDP, CP, LIPRF #### [address] [address] Humidifier Attendant: Tej Locke MD Urea nitrogen [Mass/Vol] 15 mg/dL Normal 8-23 [facility] Comment on above: Performed By: #### U MICAO, UAX, CDP, CP, LIPRF #### [address] [address] Humidifier Attendant: Tej Locke MD Lipid Prof, Fastingon 2020 Cholesterol [Mass/Vol] 136 mg/dL Normal <200 [facility] Comment on above: Result Comment: Cholesterol Guidelines: <200 Desirable 200-240 Borderline >240 Undesirable Performed By: #### C DP, CP, LIPRF, TSHX #### [address] [address] Humidifier Attendant: Tej Locke MD Cholesterol in HDL [Mass/Vol] 46 mg/dL Normal >40 [facility] Comment on above: Result Comment: HDL Guidelines: <40 Undesirable 40-59 Borderline >59 Desirable Performed By: #### C DP, CP, LIPRF, TSHX #### [place] [address] Humidifier Attendant: Tej Locke MD Cholesterol in LDL [Mass/Vol] 58 mg/dL Normal 0-130 [facility] Comment on above: Result Comment: LDL Guidelines: <100 Desirable 100-129 Near to/above Desirable 130-159 Borderline >159 Undesirable Direct (measured) LDL and calculated LDL are not interchangeable tests. Performed By: #### C DP, CP, LIPRF, TSHX #### [facility] [address] [place] [address] Humidifier Attendant: Tej Locke MD Cholesterol.total/Judy sterol in HDL [Mass ratio] 3.0 {ratio} Normal <5 [facility] Comment on above: Performed By: #### C DP, CP, LIPRF, TSHX #### [facility] [address] [place] [address] Humidifier Attendant: Tej Locke MD Triglyceride,Fasting 162 mg/dL High <150 [facility] Comment on above: Result Comment: Triglyceride Guidelines: <150 Desirable 150-199 Borderline 200-499 High >499 Very high Based on AHA Guidelines for fasting triglyceride, March 2012. Performed By: #### C DP, CP, LIPRF, TSHX #### [address] [address] Humidifier Attendant: Tej Locke MD UA w/Reflex Cultureon 2020 Acetoacetic Acid,Ur Negative Normal NEG [facility] Comment on above: Performed By: #### U MICAO, UAX, CDP, CP, LIPRF #### [facility] [address] [place] [address] Humidifier Attendant: Tej Locke MD Bilirubin, SemiQt,Ur Negative Normal NEG [facility] Comment on above: Performed By: #### U MICAO, UAX, CDP, CP, LIPRF #### [facility] [address] [place] [address] Humidifier Attendant: Tej Locke MD Color (U) YELLOW Normal YEL [facility] Comment on above: Performed By: #### U MICAO, UAX, CDP, CP, LIPRF #### [facility] [address] [place] [address] Humidifier Attendant: Tej Locke MD Glucose Ql (U) Negative Normal NEG [facility] Comment on above: Performed By: #### U MICAO, UAX, CDP, CP, LIPRF #### [address] [address] Humidifier Attendant: Tej Locke MD Hemoglobin, Ur Negative Normal NEG [facility] Comment on above: Performed By: #### U MICAO, UAX, CDP, CP, LIPRF #### [facility] [address] [place] [phone] Humidifier Attendant: Tej Locke MD Leukocyte esterase Test strip Ql (U) SMALL Abnormal NEG [facility] Comment on above: Performed By: #### U MICAO, UAX, CDP, CP, LIPRF #### [facility] [address] [place] [address] Humidifier Attendant: Tej Locke MD Nitrite,Ur Negative Normal NEG [facility] Comment on above: Performed By: #### U MICAO, UAX, CDP, CP, LIPRF #### [facility] [address] [place] [address] Humidifier Attendant: Tej Locke MD PH,Ur 7.5 Normal 5.0-8.0 [facility] Comment on above: Performed By: #### U MICAO, UAX, CDP, CP, LIPRF #### [address] [address] Humidifier Attendant: Tej Locke MD Protein Ql (U) Negative Normal NEG [facility] Comment on above: Performed By: #### U MICAO, UAX, CDP, CP, LIPRF #### [address] [address] Humidifier Attendant: Tej Locke MD Spec. [place],Ur 1.006 Normal 1.005-1.03 0 [facility] Comment on above: Performed By: #### U MICAO, UAX, CDP, CP, LIPRF #### [address] [address] Humidifier Attendant: Tej Locke MD Turbidity CLEAR Normal CLEAR [facility] Comment on above: Performed By: #### U MICAO, UAX, CDP, CP, LIPRF #### [facility] [address] [place] [address] Humidifier Attendant: Tej Locke MD Urobilinogen,Ur Normal Normal NORM [facility] Comment on above: Performed By: #### U MICAO, UAX, CDP, CP, LIPRF #### [facility] [address] [place] [address] Humidifier Attendant: Tej Locke MD Urinalysis,Microon 1 ----- Normal [facility] Comment on above: Performed By: #### U MICAO, UAX, CDP, CP, LIPRF #### [employer] [address] [place] [address] [phone] Humidifier Attendant: Tej Locke MD Epithelial cells LM Ql (Urine sed) 0 TO 2 Normal 0-5 [facility] Comment on above: Performed By: #### U MICAO, UAX, CDP, CP, LIPRF #### [facility] [place], [place] [phone] Humidifier Attendant: Tej Locke MD Urine RBC's None Normal 0-4 [facility] Comment on above: Result Comment: Refe rence range defined for non-centrifuged specimen. Performed By: #### U MICAO, UAX, CDP, CP, LIPRF #### [employer] [address] [place] [address] [phone] Humidifier Attendant: Tej Locke MD Urine WBC's 0 TO 2 Normal 0-5 [facility] Comment on above: Performed By: #### U MICAO, UAX, CDP, CP, LIPRF #### [employer] [address] [place] [phone] Humidifier Attendant: Tej Locke MD CBC Auto Differentialon Basophils (Bld) [#/Vol] 0.06 10*3/uL [place] Basophils/100 WBC (Bld) 1 % 0 - 2 % [place], [place] Differential Type NOT REPORTED [place] Eosinophils (Bld) [#/Vol] 0.22 10*3/uL [place] Eosinophils/100 WBC (Bld) 4 % 1 - 4 % [place] Erythrocyte distribution width (RBC) [Ratio] 12.7 % 11.8 - 14.4 % [place] Hematocrit (Bld) [Volume fraction] 43.2 % 36.3 - 47.1 % [place] Hemoglobin (Bld) [Mass/Vol] 12.6 g/dL 11.9 - 15.1 g/dL [place] Immature granulocytes (Bld) [#/Vol] 10*3/uL [place] Immature granulocytes (Bld) [#/Vol] 0 % 0 [place] Interpretation and review of laboratory results Abnormal [place] Lymphocytes (Bld) [#/Vol] 1.92 10*3/uL [place] Lymphocytes/100 WBC (Bld) 36 % 24 - 43 % [place] MCH (RBC) [Entitic mass] 32.0 pg 25.2 - 33.5 pg [place] MCHC (RBC) [Mass/Vol] 29.2 g/dL 28.4 - 34.8 g/dL [place] MCV (RBC) [Entitic vol] 109.6 fL High 82.6 - 102.9 fL [place] Monocytes (Bld) [#/Vol] 0.46 10*3/uL [place] Monocytes/100 WBC (Bld) 9 % 3 - 12 % M [place], [place] Platelet mean volume (Bld) [Entitic vol] 11.5 fL 8.1 - 13.5 fL [place] Platelets (Bld) [#/Vol] 256 10*3/uL [place] Platelets (Bld) [#/Vol] NOT REPORTED [place] RBC (Bld) [#/Vol] 3.94 10*6/uL Low 3.95 - 5.11 m/uL [place] RBC morphology finding Nom (Bld) MACROCYTOSIS PRESENT [place], [place] Segmented neutrophils/100 WBC (Bld) 50 % 36 - 65 % [place] Segs Absolute 2.66 [place] WBC (Bld) [#/Vol] 0.0 10*3/uL 0.0 per 100 WBC [place] WBC (Bld) [#/Vol] 5.3 10*3/uL [place] WBC Morphology NOT REPORTED [place], [place] CBC with Diffon 07-08-2020 Auto Diff Performed NOT REPORTED Normal [facility] Comment on above: Performed By: #### U MICAO, UAX, CDP, CP, LIPRF #### [facility] [address] [place] [address] Humidifier Attendant: Tej Locke MD Platelet Estimate NOT REPORTED Normal [facility] Comment on above: Performed By: #### U MICAO, UAX, CDP, CP, LIPRF #### [facility] [place] [address] Humidifier Attendant: Tej Locke MD WBC Morphology NOT REPORTED Normal [facility] Comment on above: Performed By: #### U MICAO, UAX, CDP, CP, LIPRF #### [facility] [address] [place] [phone] Humidifier Attendant: Tej Locke MD Comp Metabolic Profon 2020 BUN/CRE Ratio NOT REPORTED Normal -20 [facility] Comment on above: Performed By: #### U MICAO, UAX, CDP, CP, LIPRF #### [facility] [address] [place] [address] Humidifier Attendant: Tej Locke MD Staging: NOT REPORTED Normal [facility] Comment on above: Performed By: #### U MICAO, UAX, CDP, CP, LIPRF #### [facility] [address] [place] [address] Humidifier Attendant: Tej Locke MD Comprehensive Metabolic Pane eusebia 07-08-2020 Albumin [Mass/Vol] 4.3 g/dL 3.5 - 5.2 g/dL [place] Albumin/Globulin [Mass ratio] 1.5 {ratio} [place] ALP [Catalytic activity/Vol] 129 U/L High 35 - 104 U/L [place] ALT [Catalytic activity/Vol] 19 U/L 5 - 33 U/L [place] Anion gap [Moles/Vol] 10 mmol/L 9 - 17 mmol/L [place] AST [Catalytic activity/Vol] 18 U/L <32 [place] Bilirubin Ql (U) 0.21 mg/dL Low 0.3 - 1.2 mg/dL [place] Bun/Cre Ratio NOT REPORTED [place], [place] Calcium [Mass/Vol] 10.9 mg/dL High 8.6 - 10. 4 mg/dL [place] Chloride [Moles/Vol] 108 mmol/L High 98 - 10 7 mmol/L [place] CO2 [Moles/Vol] 21 mmol/L 20 - 31 mmol/L [place] Creatinine [Mass/Vol] 1.29 mg/dL High 0.5 - 0.9 mg/dL [place] GFR 51 mL/min Low >60 [place] GFR Non- 42 mL/min Low >60 [place] GFR/1.73 sq M predicted among non-blacks MDRD (S/P/Bld) [Vol rate/Area] NOT REPORTED [place] GFR/1.73 sq M predicted among non-blacks MDRD (S/P/Bld) [Vol rate/Area] [place] Comment on above: Average GFR for 60-6 9 years old: 85 mL/min/1.73sq m Chronic Kidney Disease: <60 mL/min/1.73sq m Kidney failure: <15 mL/min/1.73sq m eGFR calculated using average adult body mass. Additional eGFR calculator available at: http://www.[employer]x/multiple_crcl_2012.htm Glucose [Mass/Vol] 88 mg/dL 70 - 99 mg/dL [place] Potassium [Moles/Vol] 3.9 mmol/L 3.7 - 5.3 mmol/L [place] Protein [Mass/Vol] 7.1 g/dL 6.4 - 8.3 g/dL [place] Sodium [Moles/Vol] 139 mmol/L 135 - 144 mmol/L [facility], [place] Urea nitrogen [Mass/Vol] 15 mg/dL 8 - 23 mg/dL [facility], [place] Laboratory - Chemistry and C hemistry - challengeOrdered By: Karla Clark on 07-08-2020 Albumin [Mass/Vol] 4.3 g/dL (3.5-5.2 ) [facility] Work Phone: Comment on above: Note: Responsible Ob food beverage server: CCEV AUTOFILE (3002) ALT [Catalytic activity/Vol] 19 U/L (5-33 ) [facility] Work Phone: Comment on above: Note: Responsible Ob food beverage server: CCEV AUTOFILE (3002) Anion gap [Moles/Vol] 10 mmol/L (9-17 ) [facility] Work Phone: Comment on above: Note: Responsible Ob food beverage server: CCEV AUTOFILE (3002) AST [Catalytic activity/Vol] 18 U/L (<32 ) [facility] Work Phone: Comment on above: Note: Responsible Ob food beverage server: CCEV AUTOFILE (3002) Bilirubin [Mass/Vol] 0.21 mg/dL Low (0.3-1.2 ) [facility] Work Phone: Comment on above: Note: Responsible Ob food beverage server: CCEV AUTOFILE (3002) Calcium [Mass/Vol] 10.9 mg/dL High (8.6-10.4 ) [facility] Work Phone: Comment on above: Note: Responsible Ob food beverage server: CCEV AUTOFILE (3002) Chloride [Moles/Vol] 108 mmol/L High (98-107 ) [facility] Work Phone: Comment on above: Note: Responsible Ob food beverage server: CCEV AUTOFILE (3002) Cholesterol [Mass/Vol] 136 mg/dL (<200 ) [facility] Work Phone: Comment on above: Note: Cholesterol Gu idelines:<200 [id number] Borderline>240 UndesirableResponsible Observer: EV AUTOFILE (3002) Cholesterol.total/Judy sterol in HDL [Mass ratio] 3.0 {ratio} (<5 ) [facility] Work Phone: Comment on above: Note: Responsible Ob food beverage server: CCEV AUTOFILE (3002) CO2 [Moles/Vol] 21 mmol/L (20-31 ) [facility] Work Phone: Comment on above: Note: Responsible Ob food beverage server: CCEV AUTOFILE (3002) Creatinine [Mass/Vol] 1.29 mg/dL High (0.50- 0.90 ) [facility] Work Phone: Comment on above: Note: Responsible Ob food beverage server: CCEV AUTOFILE (3002) Glucose [Mass/Vol] 88 mg/dL (70-99 ) [facility] Work Phone: Comment on above: Note: Responsible Ob food beverage server: EV AUTOFILE (3002) Magnesium [Mass/Vol] 46 mg/dL (>40 ) [facility] Work Phone: Comment on above: Note: HDL Guidelines :<40 [id number] Borderline>59 DesirableResponsible Observer: EV AUTOFILE (3002) Magnesium [Mass/Vol] 58 mg/dL (0-130 ) [facility] Work Phone: Comment on above: Note: LDL Guidelines :<100 Syblfrpdz539-290 Near to/above Cdcqhegzz837-330 Borderline>159 UndesirableDirect (measured) LDL and calculated LDL are not interchangeable tests.Responsible Observer: EV AUTOFILE (3002) Magnesium [Mass/Vol] 162 mg/dL High (<150 ) [facility] Work Phone: Comment on above: Note: Triglyceride G uidelines:<150 [id number] Cyathdixqe243-481 High>499 Very highBased on AHA Guidelines for fasting triglyceride, March 2012.Responsible Observer: CCEV AUTOFILE (3002) Potassium [Moles/Vol] 3.9 mmol/L (3.7-5.3 ) [facility] Work Phone: Comment on above: Note: Responsible Ob food beverage server: CCEV AUTOFILE (3002) Protein [Mass/Vol] 7.1 g/dL (6.4-8.3 ) [facility] Work Phone: Comment on above: Note: Responsible Ob food beverage server: CCEV AUTOFILE (3002) Sodium [Moles/Vol] 139 mmol/L (135-144 ) [facility] Work Phone: Comment on above: Note: Responsible Ob food beverage server: CCEV AUTOFILE (3002) Urea nitrogen [Mass/Vol] 15 mg/dL (8-23 ) [facility] Work Phone: Comment on above: Note: Responsible Ob food beverage server: CCEV AUTOFILE (3002) Laboratory - Hematology and Cell countsOrdered By: Karla Clark on 07-08-2020 Basophils/100 WBC (Bld) 1 % (0-2 ) [facility] Work Phone: Comment on above: Note: Responsible Ob food beverage server: XNV AUTOFILE (3018) Eosinophils (Bld) [#/Vol] 0.22 10*3/uL (0.00-0.44 ) [facility] Work Phone: Comment on above: Note: Responsible Ob food beverage server: XNV AUTOFILE (3018) Eosinophils/100 WBC (Bld) 4 % (1-4 ) [facility] Work Phone: Comment on above: Note: Responsible Ob food beverage server: XNV AUTOFILE (3018) Erythrocyte distribution width (RBC) [Ratio] 12.7 % (11.8-14.4 ) [facility] Work Phone: Comment on above: Note: Responsible Ob food beverage server: XNV AUTOFILE (3018) Hematocrit (Bld) [Volume fraction] 43.2 % (36.3-47.1 ) [facility] Work Phone: Comment on above: Note: Responsible Ob food beverage server: XNV AUTOFILE (3018) Hemoglobin (Bld) [Mass/Vol] 12.6 g/dL (11.9-15.1 ) [facility] Work Phone: Comment on above: Note: Responsible Ob food beverage server: XNV AUTOFILE (3018) Immature granulocytes/100 WBC (Bld) 0 % (0 ) [facility] Work Phone: Comment on above: Note: Responsible Ob food beverage server: XNV AUTOFILE (3018) Lymphocytes (Bld) [#/Vol] 1.92 10*3/uL (1.10-3.70 ) [facility] Work Phone: Comment on above: Note: Responsible Ob food beverage server: XNV AUTOFILE (3018) Lymphocytes/100 WBC (Bld) 36 % (24-43 ) [facility] Work Phone: Comment on above: Note: Responsible Ob food beverage server: XNV AUTOFILE (3018) MCH (RBC) [Entitic mass] 32.0 pg (25.2-33.5 ) [facility] Work Phone: Comment on above: Note: Responsible Ob food beverage server: XNV AUTOFILE (3018) MCHC (RBC) [Mass/Vol] 29.2 g/dL (28.4- 34.8 ) [facility] Work Phone: Comment on above: Note: Responsible Ob food beverage server: XNV AUTOFILE (3018) MCV (RBC) [Entitic vol] 109.6 fL High (82. 6-102. 9 ) [facility] Work Phone: Comment on above: Note: Responsible Ob food beverage server: XNV AUTOFILE (3018) Monocytes (Bld) [#/Vol] 0.46 10*3/uL (0.1 0-1.20 ) [facility] Work Phone: Comment on above: Note: Responsible Ob food beverage server: XNV AUTOFILE (3018) Monocytes/100 WBC (Bld) 9 % (3-12 ) [facility] Comment on above: Note: Responsible Ob food beverage server: XNV AUTOFILE (3018) Platelet mean volume (Bld) [Entitic vol] 11.5 fL (8.1-13.5 ) [facility] Work Phone: Comment on above: Note: Responsible Ob food beverage server: XNV AUTOFILE (3018) Platelets (Bld) [#/Vol] 256 10*3/uL (138-453 ) [facility] Work Phone: Comment on above: Note: Responsible Ob food beverage server: XNV AUTOFILE (3018) RBC (Bld) [#/Vol] 3.94 10*6/uL Low (3.95-5.11 ) [facility] Work Phone: Comment on above: Note: Responsible Ob food beverage server: XNV AUTOFILE (3018) RBC morphology finding Nom (Bld) MACROCYTOSIS PRESENT [facility] Work Phone: Comment on above: Note: Responsible Ob food beverage server: XNV AUTOFILE (3018) Segmented neutrophils/100 WBC (Bld) 50 % (36-65 ) [facility] Work Phone: Comment on above: Note: Responsible Ob food beverage server: XNV AUTOFILE (3018) WBC (Bld) [#/Vol] 5.3 10*3/uL (3.5-11.3 ) [facility] Work Phone: Comment on above: Note: Responsible Ob food beverage server: XNV AUTOFILE (3018) Laboratory - Microbiology an d Antimicrobial susceptibilityOrdered By: Karla Clark on 07-08-2020 Bacteria identified Cx Nom (Unsp spec) NOT REPORTED (NONE ) [facility] Work Phone: Laboratory - Specimen inform ationOrdered By: Karla Clark on 07-08-2020 Color (U) YELLOW (YEL ) [facility] Work Phone: Comment on above: Note: Responsible Ob food beverage server: LETY MARTÍNEZ (239) Laboratory - UrinalysisOrder ed By: Karla Clark on 07-08-2020 Amorphous sediment LM Ql (Urine sed) NOT REPORTED (NONE ) [facility] Work Phone: Crystals LM Nom (Urine sed) NOT REPORTED /HPF (NONE ) [facility] Work Phone: Epithelial cells LM Ql (Urine sed) 0 TO 2 /HPF (0-5 ) [facility] Work Phone: Comment on above: Note: Responsible Ob food beverage server: LETY MARTÍNEZ (404) Yeast LM Ql (Urine sed) NOT REPORTED (NONE ) [facility] Work Phone: Lipid Prof, Fastingon 2020 Cholesterol,VLDL NOT REPORTED Normal 1-30 [facility] Comment on above: Performed By: #### C DP, CP, LIPRF, TSHX #### [facility] [address] [place], [place] [phone] Humidifier Attendant: Tej Locke MD Lipid, Fastingon 07-08-2020 Cholesterol [Mass/Vol] 136 mg/dL <200 [place], [place] Comment on above: Cholesterol Guidelines: <200 Desirable 200-240 Borderline >240 Undesirable Cholesterol in HDL [Mass/Vol] 46 mg/dL >40 [place] Comment on above: HDL Guidelines: <40 Undesirable 40-59 Borderline >59 Desirable Cholesterol in LDL [Mass/Vol] 58 mg/dL 0 - 130 mg/dL [place] Comment on above: LDL Guidelines: <100 Desirable 100-129 Near to/above Desirable 130-159 Borderline >159 Undesirable Direct (measured) LDL and calculated LDL are not interchangeable tests. Cholesterol in VLDL [Mass/Vol] NOT REPORTED High 1 - 30 mg/dL [place] Cholesterol.total/Judy sterol in HDL [Mass ratio] 3 {ratio} <5 [place] Triglyceride, Fasting 162 mg/dL High <150 [place], [place] Comment on above: Triglyceride Guidelines: <150 Desirable 150-199 Borderline 200-499 High >499 Very high Based on AHA Guidelines for fasting triglyceride, March 2012. Microscopic Urinalysison Amorphous, UA NOT REPORTED None [facility], [place] Bacteria, UA NOT REPORTED None [facility], [place] Casts UA NOT REPORTED [place], [place] Crystals, UA NOT REPORTED None /HPF [place], [place] Epithelial Cells UA 0 TO 2 [facility], [place] Mucus, UA NOT REPORTED None [facility], [place] Other Observations UA NOT REPORTED NOT REQ. M [facility], [place] RBC (U) [#/Vol] None [place], [place] Comment on above: Reference range defi aggie for non-centrifuged specimen. Renal Epithelial, UA NOT REPORTED 0 /HPF [facility], [place] Trichomonas, UA NOT REPORTED None [place], [place] WBC, UA 0 TO 2 [facility], [place] Yeast, UA NOT REPORTED None [facility], [place] - [place], [place] No Panel InformationOrdered By: Karla Clark on 07-08-2020 (cont.) See Note [facility] Work Phone: Comment on above: Note: Average GFR fo r 60-69 years old:85 mL/min/1.73sq mChronic Kidney Disease:<60 mL/min/1.73sq mKidney failure:<15 mL/min/1.73sq meGFR calculated using average adult body mass. Additional eGFR calculatoravailable at:http://www.[employer]/multiple_crcl_2011.htmResponsible Observer: CCEV AUTOFILE (9303) ----- See Note [facility] Work Phone: Comment on above: Note: Responsible Ob food beverage server: LETY MARTÍNEZ (304) Abs. Basophil 0.06 k/uL (0.00-0.20 ) [facility] Work Phone: Comment on above: Note: Responsible Ob food beverage server: XNV AUTOFILE (6306) Abs.Imm.Granulocyte <0.03 k/uL (0.00-0. 30 ) [facility] Work Phone: Comment on above: Note: Responsible Ob food beverage server: XNV AUTOFILE (3018) Abs.Neutrophil (Seg) 2.66 k/uL (1.50-8 .10 ) [facility] Work Phone: Comment on above: Note: Responsible Ob food beverage server: XNV AUTOFILE (3018) Acetoacetic Acid,Ur Negative (NEG ) [facility] Work Phone: Comment on above: Note: Responsible Ob food beverage server: LETY MARTÍNEZ (529) Albumin/Glob Ratio 1.5 (1.0-2.5 ) [facility] Work Phone: Comment on above: Note: Responsible Ob food beverage server: CCEV AUTOFILE (3002) Alkaline Phos 129 U/L High (35-104 ) [facility] Work Phone: Comment on above: Note: Responsible Ob food beverage server: CCEV AUTOFILE (3002) Auto Diff Performed NOT REPORTED [facility] Work Phone: Bilirubin, SemiQt,Ur Negative (NEG ) [facility] Work Phone: Comment on above: Note: Responsible Ob food beverage server: LETY MARTÍNEZ (909) BUN/CRE Ratio NOT REPORTED (9-20 ) [facility] Work Phone: Casts NOT REPORTED /LPF (0-8 ) [facility] Work Phone: Cholesterol,VLDL NOT REPORTED mg/dL (1-30 ) [facility] Work Phone: Comment NOT REPORTED [facility] Work Phone: Epithelial, Renal NOT REPORTED /HPF (0 ) [facility] Work Phone: GFR, Amer 51 mL/min Low (>60 ) [facility] Work Phone: Comment on above: Note: Responsible Ob food beverage server: CCEV AUTOFILE (3002) GFR,non Amer 42 mL/min Low (>60 ) [facility] Work Phone: Comment on above: Note: Responsible Ob food beverage server: CCEV AUTOFILE ([id number]) Glucose,Semi-qnt,Ur Negative (NEG ) [facility] Work Phone: Comment on above: Note: Responsible Ob food beverage server: LETY MARTÍNEZ (888) Hemoglobin, Ur Negative (NEG ) [facility] Work Phone: Comment on above: Note: Responsible Ob food beverage server: LETY MARTÍNEZ (298) Leuckocyte Esterase SMALL Abnormal (NEG ) [facility] Work Phone: Comment on above: Note: Responsible Ob food beverage server: LETY MARTÍNEZ (391) Mucus Strands NOT REPORTED (NONE ) [facility] Work Phone: Nitrite,Ur Negative (NEG ) [facility] Work Phone: Comment on above: Note: Responsible Ob food beverage server: LETY MARTÍNEZ (006) NRBC Automated 0.0 per_100_WBC (0.0 ) [facility] Work Phone: Comment on above: Note: Responsible Ob food beverage server: XNV AUTOFILE ([id number]) Other Observations NOT REPORTED (NREQ ) [facility] Work Phone: Performing Lab: see note [facility] Work Phone: Comment on above: Note: MICHELLE Kinney [address] [facility] [address] PH,Ur 7.5 (5.0-8.0 ) [facility] Work Phone: Comment on above: Note: Responsible Ob food beverage server: LETY MARTÍNEZ (036) Platelet Estimate NOT REPORTED [facility] Work Phone: Protein, Semi-qnt,Ur Negative (NEG ) [facility] Work Phone: Comment on above: Note: Responsible Ob food beverage server: LETY MARTÍNEZ (909) Reported Physicians See Note [facility] Work Phone: Comment on above: Note: Reported Physi cians:Ordering: Cotton, AimeeAttending: Cotton, AimeeReferring: Cotton, Karla Spec. [place],Ur 1.006 (1.005-1.0 30 ) [facility] Work Phone: Comment on above: Note: Responsible Ob food beverage server: LETY MARTÍNEZ (509) Staging: NOT REPORTED [facility] Work Phone: Trichomonas NOT REPORTED (NONE ) [facility] Work Phone: Turbidity CLEAR (CLEAR ) [facility] Work Phone: Comment on above: Note: Responsible Ob food beverage server: LETY MARTÍNEZ (089) Urine RBC's None /HPF (0-4 ) [facility] Work Phone: Comment on above: Note: Reference rang e defined for non-centrifuged specimen.Responsible Observer: LETY MARTÍNEZ (909) Urine WBC's 0 TO 2 /HPF (0-5 ) [facility] Work Phone: Comment on above: Note: Responsible Ob food beverage server: LETY MARTÍNEZ (159) Urobilinogen,Ur Normal (NORM ) [facility] Work Phone: Comment on above: Note: Responsible Ob food beverage server: LETY MARTÍNEZ (029) WBC Morphology NOT REPORTED [facility] Work Phone: Otheron 07-08-2020 Interpretation and review of laboratory results Abnormal [facility] [place], [place] UA w/Reflex Cultureon 2020 Comment NOT REPORTED Normal [facility] Comment on above: Performed By: #### U MICAO, UAX, CDP, CP, LIPRF #### [facility] [address] [place], [place] [id number] Humidifier Attendant: Tej Locke MD Urinalysis Reflex to Culture on 07-08-2020 Bilirubin Urine Negative NEGATIVE [facility] [place], [place] Color, UA YELLOW YELLOW [place], [place] Glucose, Ur Negative NEGATIVE [place] Interpretation and review of laboratory results Abnormal [place] Ketones Ql (U) Negative NEGATIVE [place], [place] Leukocyte esterase Test strip Ql (U) SMALL Abnormal NEGATIVE [place] Nitrite, Urine Negative NEGATIVE [place], [place] pH, UA 7.5 [place] Protein (U) [Mass/Vol] Negative NEGATIVE [place], [place] Specific [place], UA 1.006 [place], [place] Turbidity UA CLEAR CLEAR [place], [place] Urinalysis Comments NOT REPORTED [place], [place] Urine Hgb Negative NEGATIVE [place] Urobilinogen, Urine Normal Normal [place] Urinalysis,Microon 1 Amorphous sediment LM Ql (Urine sed) NOT REPORTED Normal NONE [facility] Comment on above: Performed By: #### U MICAO, UAX, CDP, CP, LIPRF #### [address] [address] Humidifier Attendant: Tej Locke MD Bacteria NOT REPORTED Normal [facility] Comment on above: Performed By: #### U MICAO, UAX, CDP, CP, LIPRF #### [facility] [address] [place] [id number] Humidifier Attendant: Tej Locke MD Casts NOT REPORTED Normal 0-8 [facility] Comment on above: Performed By: #### U MICAO, UAX, CDP, CP, LIPRF #### [facility] [address] [place] [id number] Humidifier Attendant: Tej Locke MD Crystals LM Nom (Urine sed) NOT REPORTED Normal [facility] Comment on above: Performed By: #### U MICAO, UAX, CDP, CP, LIPRF #### [facility] [address] [place] [id number] Humidifier Attendant: Tej Locke MD Epithelial, Renal NOT REPORTED Normal 0 [facility] Comment on above: Performed By: #### U MICAO, UAX, CDP, CP, LIPRF #### [facility] [address] [place] [id number] Humidifier Attendant: Tej Locke MD Mucus Strands NOT REPORTED Normal NONE [facility] Comment on above: Performed By: #### U MICAO, UAX, CDP, CP, LIPRF #### [address] [address] Humidifier Attendant: Tej Locke MD Other Observations NOT REPORTED Normal NREQ [facility] Comment on above: Performed By: #### U MICAO, UAX, CDP, CP, LIPRF #### [facility] [address] [place] [id number] Humidifier Attendant: Tej Locke MD Trichomonas NOT REPORTED Normal NONE [facility] Comment on above: Performed By: #### U MICAO, UAX, CDP, CP, LIPRF #### [facility] [address] [place] [phone] Humidifier Attendant: Tej Locke MD Yeast NOT REPORTED Normal NONE [facility] Comment on above: Performed By: #### U MICAO, UAX, CDP, CP, LIPRF #### [facility] [address] [place] [phone] Humidifier Attendant: Tej Locke MD BUNon 06-30-2020 Urea nitrogen [Mass/Vol] 17 mg/dL 8 - 23 mg/dL [place] Creatinine, Serumon 06-30-19 Creatinine [Mass/Vol] 1.26 mg/dL High 0.5 - 0.9 mg/dL [place] GFR 52 mL/min Low >60 [place] GFR Non- 43 mL/min Low >60 [place] Interpretation and review of laboratory results Abnormal [place] Laboratory - Chemistry and C hemistry - challengeOrdered By: Karla Clark on 06-30-2020 Creatinine [Mass/Vol] 1.26 mg/dL High (0.50- 0.90 ) [facility] Work Phone: Comment on above: Note: Responsible Ob food beverage server: CET ONE AUTOFILE ([id number]) Urea nitrogen [Mass/Vol] 17 mg/dL (8-23 ) [facility] Work Phone: Comment on above: Note: Responsible Ob food beverage server: CET ONE AUTOFILE ([id number]) Laboratory - Microbiology an d Antimicrobial susceptibilityOrdered By: Karla Clark on 06-30-2020 SARS-CoV-2 (COVID-19) RNA MARCIO+probe Ql (Resp) Not detected (Not Detected ) [facility] Work Phone: Comment on above: Note: This nucleic a ashlee amplification test was developed and itsperformance characteristics determined by [facility]. Nucleic acid amplification tests include RT-PCR and TMA. This test has not been FDA cleared orapproved. This test has been authorized by FDA under anEmergency Use Authorization (EUA). This test is onlyauthorized for the duration of time the declaration thatcircumstances exist justifying the authorization of theemergency use of in vitro diagnostic tests for detection [id number] virus and/or diagnosis of COVID-19 infectionunder section 564(b)(1) of the Act, 21 U.S.C. 360bbb-3(b)(1), unless the authorization is terminated or revokedsooner.When diagnostic testing is negative, the possibility of afalse negative result should be considered in the contextof a patient's recent exposures and the presence ofclinical signs and symptoms consistent with COVID-19. Anindividual without symptoms of COVID-19 and who is notshedding SARS-CoV-2 virus would expect to have a negative(not detected) result in this assay. MRI BRAIN W WO CONTRASTon Unremarkable exam. N o significant pituitary mass. [place] EXAMINATION: MRI OF THE BRAIN WITHOUT AND WITH CONTRAST 06/30/2020 2:06 pm TECHNIQUE: Multiplanar multisequence MRI of the head/brain was performed without and with the administration of intravenous contrast. COMPARISON: None HISTORY: ORDERING SYSTEM PROVIDED HISTORY: Hyperprolactinemia (HCC) FINDINGS: INTRACRANIAL STRUCTURES/VENTRICLES: There is no acute infarct. No mass effect or midline shift. No evidence of an acute intracranial hemorrhage. The ventricles and sulci are normal in size and configuration. The sellar/suprasellar regions appear unremarkable. The normal signal voids within the major intracranial vessels appear maintained. No abnormal focus of enhancement is seen within the brain. ORBITS: The visualized portion of the orbits demonstrate no acute abnormality. SINUSES: The visualized paranasal sinuses and mastoid air cells are well aerated. BONES/SOFT TISSUES: The bone marrow signal intensity appears normal. The soft tissues demonstrate no acute abnormality. [place], [place], pn Incoming Radiant Results From [facility] - 06/30/2020 4:29 PM EST EXAMINATION: MRI OF THE BRAIN WITHOUT AND WITH CONTRAST 06/30/2020 2:06 pm TECHNIQUE: Multiplanar multisequence MRI of the head/brain was performed without and with the administration of intravenous contrast. COMPARISON: None HISTORY: ORDERING SYSTEM PROVIDED HISTORY: Hyperprolactinemia (HCC) FINDINGS: INTRACRANIAL STRUCTURES/VENTRICLES: There is no acute infarct. No mass effect or midline shift. No evidence of an acute intracranial hemorrhage. The ventricles and sulci are normal in size and configuration. The sellar/suprasellar regions appear unremarkable. The normal signal voids within the major intracranial vessels appear maintained. No abnormal focus of enhancement is seen within the brain. ORBITS: The visualized portion of the orbits demonstrate no acute abnormality. SINUSES: The visualized paranasal sinuses and mastoid air cells are well aerated. BONES/SOFT TISSUES: The bone marrow signal intensity appears normal. The soft tissues demonstrate no acute abnormality. IMPRESSION: Unremarkable exam. No significant pituitary mass. [place], [place] Metabolic Panelon 06-30-2020 GFR/1.73 sq M predicted among non-blacks MDRD (S/P/Bld) [Vol rate/Area] [facility], [place] Comment on above: Average GFR for 60-6 9 years old: 85 mL/min/1.73sq m Chronic Kidney Disease: <60 mL/min/1.73sq m Kidney failure: <15 mL/min/1.73sq m eGFR calculated using average adult body mass. Additional eGFR calculator available at: http://www.Casengo/multiple_crcl_2012.htm Stage 1: Some kidney damage normal GFR Stage 2: Mild kidney damage GFR 60-89 Stage 3: Moderate kidney damage GFR 30-59 Stage 4: Severe kidney damage GFR 15-29 Stage 5: Severe kidney damage GFR <15 ESRD - chronic treatment by dialysis or transplant No Panel InformationOrdered By: Karla Clark on 06-30-2020 (cont.) See Note [facility] Work Phone: Comment on above: Note: Average GFR fo r 60-69 years old:85 mL/min/1.73sq mChronic Kidney Disease:<60 mL/min/1.73sq mKidney failure:<15 mL/min/1.73sq meGFR calculated using average adult body mass. Additional eGFR calculatoravailable at:http://www.Casengo/multiple_crcl_2012.htmResponsible Observer: CET ONE AUTOFILE (3005) GFR, Amer 52 mL/min Low (>60 ) [facility] Work Phone: Comment on above: Note: Responsible Ob food beverage server: CET ONE AUTOFILE (3005) GFR,non Amer 43 mL/min Low (>60 ) [facility] Work Phone: Comment on above: Note: Responsible Ob food beverage server: CET ONE AUTOFILE ([id number]) Performing Lab: see note [facility] Work Phone: Comment on above: Note: [facility] [address] [place] [address] Reported Physicians See Note [facility] Work Phone: Comment on above: Note: Reported Physi cians:Ordering: Karla AcevedoAttending: Cotton, AimeeReferring: Cotton, Karla Staging: See Note [facility] Work Phone: Comment on above: Note: Stage 1: Some kidney damage normal GFRStage 2: Mild kidney damage GFR 60-89Stage 3: Moderate kidney damage GFR 30-59Stage 4: Severe kidney damage GFR 15-29Stage 5: Severe kidney damage GFR <15ESRD - chronic treatment by dialysis or transplantResponsible Observer: LUIZ MALDONADO AUTOFILE ([id number]) Surgical Pathologyon 021 Surgical Pathology Report -- Diagnosis -- LEFT BREAST, 4:00, NEEDLE BIOPSIES:- BENIGN FIBROADIPOSE TISSUE.- NO EPITHELIAL BREAST COMPONENT IS IDENTIFIED IN THE BIOPSY MATERIAL.- NEGATIVE FOR ATYPIA AND MALIGNANCY. Joby Paredes, Electronically Signed Out /06/09/2020 Clinical Information Pre-op Diagnosis: LEFT BREAST MASS Operative Findings: LEFT BREAST 4:00 Operation Performed: BREAST BIOPSY Source of Specimen 1: LEFT BREAST 4:00 Gross Description GAIL ALMEIDA, LEFT BREAST Three pale yellow-red cores 0.2, 0.6 and 0.7 cm in length, all 0.1 cm in diameter. Entirely 1cs. jg tm Microscopic Description The biopsies consist of benign fibroadipose tissue with focal hemorrhage (biopsy artifact). No epithelial breast elements are identified. There is no evidence of atypia or malignancy. SURGICAL PATHOLOGY CONSULTATION Patient Name: GAIL ALMEIDA [facility] Rec: [id number] Path Number: [id number] [facility] AN[facility] [address] [place] [id number] [place] Other 06-08-2020 Addendum by Del Ross MD on 06/10/2020 8:54 AM ADDENDUM: ADDENDUM FOR PATHOLOGY - Radiologic-pathologic correlation. Pathology results demonstrate - LEFT BREAST, 4:00, NEEDLE BIOPSIES:- BENIGN FIBROADIPOSE TISSUE.- NO EPITHELIAL BREAST COMPONENT IS IDENTIFIED IN THE BIOPSY MATERIAL.- NEGATIVE FOR ATYPIA AND MALIGNANCY. IMPRESSION - The pathology diagnosis is benign and concordant with the imaging findings. Return to yearly screening schedule is recommended. [place], [place] Technically successf ul ultrasound guided core biopsy of subtle sonographic abnormality in the posterior 4 o'clock left breast near the chest wall and coil shapedclip marker placement as described above. BIRADS: ZW - Pathology pending. [place] EXAMINATION: ULTRASOUND-GUIDED LEFT BREAST BIOPSY WITH VACUUM-ASSIST ULTRASOUND-GUIDED CLIP PLACEMENT POSTPROCEDURE DIGITAL MAMMOGRAM 06/08/2020 HISTORY: ORDERING SYSTEM PROVIDED HISTORY: Abnormal ultrasound of breast TECHNOLOGIST PROVIDED HISTORY: left breast lesion COMPARISON: Diagnostic mammography and ultrasound 04/04/2020 and 02/25/2019. TECHNIQUE: A timeout was performed to confirm patient identification and site of procedure. Risks, benefits, and alternatives of the procedure were discussed. Informed written consent was obtained. Transverse and longitudinal ga scale images were obtained of the previously described abnormality in the 4 o'clock position of the left breast, located near the chest wall. This finding was very subtle and difficult to confirm as a 3 dimensional structure on 2 imaging planes. The subtle area of decreased echogenicity was targeted with radial imaging. The biopsy site was prepped in standard fashion. 1% lidocaine was used for local anesthesia and a small skin incision was made. A 14 gauge spring-loaded core biopsy needle was advanced under sonographic guidance using coaxial technique via a lateral approach. 3 cores were obtained and the needle was removed. A coil shaped biopsy clip was placed at the biopsy site under ultrasound guidance. Pressure was applied for hemostasis. The patient tolerated the procedure well with no immediate complications. POSTPROCEDURE MAMMOGRAM: CC, true lateral and exaggerated CC views of the left breast were obtained immediately following the procedure. The biopsy clip is in the correct location with respect to the ultrasound location (this finding was mammographically occult) and is only visualized on the exaggerated CC view. There is no evidence of biopsy clip migration from the biopsy site. Post biopsy clip placement imaging performed in a separate room. [place], [place], Mhpn Incoming Radiant Results From [employer] - 06/08/2020 11:19 AM EST EXAMINATION: ULTRASOUND-GUIDED LEFT BREAST BIOPSY WITH VACUUM-ASSIST ULTRASOUND-GUIDED CLIP PLACEMENT POSTPROCEDURE DIGITAL MAMMOGRAM 06/08/2020 HISTORY: ORDERING SYSTEM PROVIDED HISTORY: Abnormal ultrasound of breast TECHNOLOGIST PROVIDED HISTORY: left breast lesion COMPARISON: Diagnostic mammography and ultrasound 04/04/2020 and 02/25/2019. TECHNIQUE: A timeout was performed to confirm patient identification and site of procedure. Risks, benefits, and alternatives of the procedure were discussed. Informed written consent was obtained. Transverse and longitudinal ga scale images were obtained of the previously described abnormality in the 4 o'clock position of the left breast, located near the chest wall. This finding was very subtle and difficult to confirm as a 3 dimensional structure on 2 imaging planes. The subtle area of decreased echogenicity was targeted with radial imaging. The biopsy site was prepped in standard fashion. 1% lidocaine was used for local anesthesia and a small skin incision was made. A 14 gauge spring-loaded core biopsy needle was advanced under sonographic guidance using coaxial technique via a lateral approach. 3 cores were obtained and the needle was removed. A coil shaped biopsy clip was placed at the biopsy site under ultrasound guidance. Pressure was applied for hemostasis. The patient tolerated the procedure well with no immediate complications. POSTPROCEDURE MAMMOGRAM: CC, true lateral and exaggerated CC views of the left breast were obtained immediately following the procedure. The biopsy clip is in the correct location with respect to the ultrasound location (this finding was mammographically occult) and is only visualized on the exaggerated CC view. There is no evidence of biopsy clip migration from the biopsy site. Post biopsy clip placement imaging performed in a separate room. IMPRESSION: Technically successful ultrasound guided core biopsy of subtle sonographic abnormality in the posterior 4 o'clock left breast near the chest wall and coil shapedclip marker placement as described above. BIRADS: ZW - Pathology pending. [place] Prolactinon 06-06-2020 Interpretation and review of laboratory results Abnormal [place] Prolactin 223 ug/L High 4.79 - 23.3 ug/L [place] Comment on above: The presence of macr oprolactin may cause interference in female patients with various endocrinological diseases or during . Otheron 04-04-2020 1. Patient has dilat ed retroareolar ducts on the left side similar to prior study without intraluminal filling defects visualized in the retroareolar area. The patient has continued nipple discharge. Consideration may be given to ductography in this patient. 2. Ill-defined hypoechoic lesion at 4 o'clock 8 cm from the nipple with internal vascular flow. Repeat biopsy attempt of this lesion under ultrasound guidance is advised. BI-RADS 4-A BIRADS: BIRADS - CATEGORY 4-A Low suspicion for malignancy. Suspicious Abnormality. Biopsy should be considered at this time. OVERALL ASSESSMENT - SUSPICIOUS A letter of notification will be sent to the patient regarding the results. My findings and recommendations were discussed with the patient at the time of service. A dental sales representative from the radiology department will be contacting your office and assisting the patient in getting appropriate follow-up. [facility], [place] EXAMINATION: DIAGNOS TIC DIGITAL BILATERAL BREASTS MAMMOGRAM WITH TOMOSYNTHESIS; TARGETED ULTRASOUND OF THE LEFT BREAST 04/04/2020 1:35 pm; 04/04/2020 2:08 pm TECHNIQUE: Diagnostic mammography of the bilateral breasts was performed with tomosynthesis. 2-D standard and 3-D tomosynthesis combination imaging performed through both breasts. Computer aided detection was utilized in the interpretation of this exam.; Target ultrasound of the left breast was performed. VIEWS: MLO and craniocaudal full field digital mammographic images of both breasts with 3-D tomosynthesis. 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 Patient had questionable lesion left breast at 4 o'clock on prior study of 11 March 2019 ultrasound which could not be replicated for biopsy on 10 April 2019. Patient missed advised six-month ultrasound follow-up due to COVID limitations. Positive family history of breast cancer; patient's mother diagnosed with breast cancer after age 50. Negative history of hormonal replacement therapy. Right surgical breast biopsy in the past. Left nipple discharge, clear yellow. FINDINGS: Mammogram: The breasts are heterogeneously dense which can obscure small masses. No skin thickening, nipple contour changes, suspicious masses, or significant interval changes are noted. Ultrasound retroareolar area of the left breast and 4 o'clock position is advised. Ultrasound: Targeted ultrasonography of the left breast in the retroareolar area reveals evidence of mild ductal dilatation without evidence of intraductal filling defects. Prior questionable ductal filling defects on ultrasound of 11 March 2019 are not replicated. At the 4 o'clock position 8 cm from the nipple an ill-defined solid nodule of 4.6 x 10 x 2.9 mm is noted with vascularity, similar in location to prior ultrasound of 11 March 2019. Repeat attempt at tissue sampling of this location is advised. [facility], [place], Mhpn Incoming Radiant Results From [facility] - 04/04/2020 5:42 PM EST EXAMINATION: DIAGNOSTIC DIGITAL BILATERAL BREASTS MAMMOGRAM WITH TOMOSYNTHESIS; TARGETED ULTRASOUND OF THE LEFT BREAST 04/04/2020 1:35 pm; 04/04/2020 2:08 pm TECHNIQUE: Diagnostic mammography of the bilateral breasts was performed with tomosynthesis. 2-D standard and 3-D tomosynthesis combination imaging performed through both breasts. Computer aided detection was utilized in the interpretation of this exam.; Target ultrasound of the left breast was performed. VIEWS: MLO and craniocaudal full field digital mammographic images of both breasts with 3-D tomosynthesis. 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 Patient had questionable lesion left breast at 4 o'clock on prior study of 11 March 2019 ultrasound which could not be replicated for biopsy on 10 April 2019. Patient missed advised six-month ultrasound follow-up due to COVID limitations. Positive family history of breast cancer; patient's mother diagnosed with breast cancer after age 50. Negative history of hormonal replacement therapy. Right surgical breast biopsy in the past. Left nipple discharge, clear yellow. FINDINGS: Mammogram: The breasts are heterogeneously dense which can obscure small masses. No skin thickening, nipple contour changes, suspicious masses, or significant interval changes are noted. Ultrasound retroareolar area of the left breast and 4 o'clock position is advised. Ultrasound: Targeted ultrasonography of the left breast in the retroareolar area reveals evidence of mild ductal dilatation without evidence of intraductal filling defects. Prior questionable ductal filling defects on ultrasound of 11 March 2019 are not replicated. At the 4 o'clock position 8 cm from the nipple an ill-defined solid nodule of 4.6 x 10 x 2.9 mm is noted with vascularity, similar in location to prior ultrasound of 11 March 2019. Repeat attempt at tissue sampling of this location is advised. IMPRESSION: 1. Patient has dilated retroareolar ducts on the left side similar to prior study without intraluminal filling defects visualized in the retroareolar area. The patient has continued nipple discharge. Consideration may be given to ductography in this patient. 2. Ill-defined hypoechoic lesion at 4 o'clock 8 cm from the nipple with internal vascular flow. Repeat biopsy attempt of this lesion under ultrasound guidance is advised. BI-RADS 4-A BIRADS: BIRADS - CATEGORY 4-A Low suspicion for malignancy. Suspicious Abnormality. Biopsy should be considered at this time. OVERALL ASSESSMENT - SUSPICIOUS A letter of notification will be sent to the patient regarding the results. My findings and recommendations were discussed with the patient at the time of service. A dental sales representative from the radiology department will be contacting your office and assisting the patient in getting appropriate follow-up. [place], [place] BUN (Urea N)on 04-01-2020 Urea nitrogen [Mass/Vol] 21 mg/dL Normal 8- [facility] Comment on above: Performed By: #### B NAFISA, CREG #### [facility] [address] [place] [address] [phone] Humidifier Attendant: Tej Locke MD Creatinine w/GFRon 0 (cont.) Normal [facility] Comment on above: Result Comment: Aver age GFR for 60-69 years old: 85 mL/min/1.73sq m Chronic Kidney Disease: <60 mL/min/1.73sq m Kidney failure: <15 mL/min/1.73sq m eGFR calculated using average adult body mass. Additional eGFR calculator available at: http://www.[employer].Albiorex/multiple_crcl_2012.htm Performed By: #### B NAFISA, CREG #### [facility] [address] [place] [address] [phone] Humidifier Attendant: Tej Locke MD Creatinine [Mass/Vol] 1.10 mg/dL High 0.50-0.90 [facility] Comment on above: Performed By: #### B NAFISA, CREG #### [facility] [address] [place] [address] Humidifier Attendant: Tej Locke MD GFR, Amer >60 Normal >60 [facility] Comment on above: Performed By: #### B NAFISA, CREG #### [facility] [address] [place], [place] [phone] Humidifier Attendant: Tej Locke MD GFR,non Amer 50 mL/min Low >60 [facility] Comment on above: Performed By: #### B UN, CREG #### [facility] [address] [place], [place] [phone] Humidifier Attendant: Tej Locke MD BUNon 03-31-2020 Urea nitrogen [Mass/Vol] 21 mg/dL 8 - 23 mg/dL [place] Creatinine w/GFRon 0 Staging: NOT REPORTED Normal [facility] Comment on above: Performed By: #### B UN, CREG #### [facility] [address] [place] [address] Humidifier Attendant: Tej Locke MD Creatinine, Serumon 03-31-20 20 Creatinine [Mass/Vol] 1.1 mg/dL High 0.5 - 0.9 mg/dL [place] GFR >60 >60 mL/min [place] GFR Non- 50 mL/min Low >60 [place] GFR/1.73 sq M predicted among non-blacks MDRD (S/P/Bld) [Vol rate/Area] [place] Comment on above: Average GFR for 60-6 9 years old: 85 mL/min/1.73sq m Chronic Kidney Disease: <60 mL/min/1.73sq m Kidney failure: <15 mL/min/1.73sq m eGFR calculated using average adult body mass. Additional eGFR calculator available at: http://www.[employer].com/multiple_crcl_2012.htm GFR/1.73 sq M predicted among non-blacks MDRD (S/P/Bld) [Vol rate/Area] NOT REPORTED [place] Interpretation and review of laboratory results Abnormal [place] Metabolic Panelon 03-31-2020 Creatinine [Mass/Vol] 1.10 mg/dL High (0.50- 0.90 ) [facility] Work Phone: Comment on above: Note: Responsible Ob food beverage server: CEEV AUTOFILE (3003) Urea nitrogen [Mass/Vol] 21 mg/dL (8-23) [facility] Work Phone: Comment on above: Note: Responsible Ob food beverage server: CEEV AUTOFILE ([id number]) Otheron 03-31-2020 (cont.) See Note [facility] Work Phone: Comment on above: Note: Average GFR fo r 60-69 years old:85 mL/min/1.73sq mChronic Kidney Disease:<60 mL/min/1.73sq mKidney failure:<15 mL/min/1.73sq meGFR calculated using average adult body mass. Additional eGFR calculatoravailable at:http://www.Cas[employer]/multiple_crcl_2012.htmResponsible Observer: CEEV AUTOFILE (3003) GFR, Amer >60 mL/min (>60) [facility] Work Phone: Comment on above: Note: Responsible Ob food beverage server: CEEV AUTOFILE (3003) GFR,non Amer 50 mL/min Low (>60) [facility] Work Phone: Comment on above: Note: Responsible Ob food beverage server: CEEV AUTOFILE ([id number]) Performing Lab: see note [facility] Work Phone: Comment on above: Note: MIHCELLE Kinney [address] [facility] [address] Reported Physicians See Note [facility] Work Phone: Comment on above: Note: Reported Physi cians:Ordering: Cotton, AimeeAttending: Cotton, AimeeReferring: Cotton, Karla Staging: NOT REPORTED [facility] Work Phone: CBC with Diffon 03-11-2020 Abs. Basophil 0.06 k/uL Normal 0.00-0.20 [facility] Comment on above: Performed By: #### C DP, CP, LIPRF, TSHX #### [place] [address] Humidifier Attendant: Tej Locke MD Abs.Imm.Granulocyte <0.03 Normal 0.00-0.30 [facility] Comment on above: Performed By: #### C DP, CP, LIPRF, TSHX #### [place] [address] Humidifier Attendant: Tej Locke MD Abs.Neutrophil (Seg) 3.12 k/uL Normal 1.50-8.10 [facility] Comment on above: Performed By: #### C DP, CP, LIPRF, TSHX #### [place] [address] Humidifier Attendant: Tej Locke MD Basophils/100 WBC (Bld) 1 % Normal 0-2 [facility] Comment on above: Performed By: #### C DP, CP, LIPRF, TSHX #### [place] [address] Humidifier Attendant: Tej Locke MD Eosinophils (Bld) [#/Vol] 0.15 10*3/uL Normal 0.00-0.44 [facility] Comment on above: Performed By: #### C DP, CP, LIPRF, TSHX #### [place] [address] Humidifier Attendant: Tej Locke MD Eosinophils/100 WBC (Bld) 3 % Normal 1-4 [facility] Comment on above: Performed By: #### C DP, CP, LIPRF, TSHX #### [place] [address] Humidifier Attendant: Tej Locke MD Erythrocyte distribution width (RBC) [Ratio] 13.2 % Normal 11.8-14.4 [facility] Comment on above: Performed By: #### C DP, CP, LIPRF, TSHX #### [address] [address] Humidifier Attendant: Tej Locke MD Hematocrit (Bld) [Volume fraction] 42.7 % Normal 36.3-47.1 [facility] Comment on above: Performed By: #### C DP, CP, LIPRF, TSHX #### [address] [address] Humidifier Attendant: Tej Locke MD Hemoglobin (Bld) [Mass/Vol] 12.6 g/dL Normal 11.9-15.1 [facility] Comment on above: Performed By: #### C DP, CP, LIPRF, TSHX #### [address] [address] Humidifier Attendant: Tej Locke MD Immature granulocytes/100 WBC (Bld) 0 % Normal 0 [facility] Comment on above: Performed By: #### C DP, CP, LIPRF, TSHX #### [address] [address] Humidifier Attendant: Tej Locke MD Lymphocytes (Bld) [#/Vol] 1.57 10*3/uL Normal 1.10-3.70 [facility] Comment on above: Performed By: #### C DP, CP, LIPRF, TSHX #### [address] [address] Humidifier Attendant: Tej Locke MD Lymphocytes/100 WBC (Bld) 29 % Normal 24-43 [facility] Comment on above: Performed By: #### C DP, CP, LIPRF, TSHX #### [address] [address] Humidifier Attendant: Tej Locke MD MCH (RBC) [Entitic mass] 32.1 pg Normal 25.2-33.5 [facility] Comment on above: Performed By: #### C DP, CP, LIPRF, TSHX #### [address] [address] Humidifier Attendant: Tej Locke MD MCHC (RBC) [Mass/Vol] 29.5 g/dL Normal 28.4-34.8 [facility] Comment on above: Performed By: #### C DP, CP, LIPRF, TSHX #### [address] [address] Humidifier Attendant: Tej Locke MD MCV (RBC) [Entitic vol] 108.7 fL High 82.6-102.9 [facility] Comment on above: Performed By: #### C DP, CP, LIPRF, TSHX #### [place] [address] Humidifier Attendant: Tej Locke MD Monocytes (Bld) [#/Vol] 0.45 10*3/uL Normal 0.10-1.20 [facility] Comment on above: Performed By: #### C DP, CP, LIPRF, TSHX #### [place] [address] Humidifier Attendant: Tej Locke MD Monocytes/100 WBC (Bld) 8 % Normal 3-12 [facility] Comment on above: Performed By: #### C DP, CP, LIPRF, TSHX #### [place] [address] Humidifier Attendant: Tej Locke MD Neutrophil (Seg) 59 % Normal 36-65 [facility] Comment on above: Performed By: #### C DP, CP, LIPRF, TSHX #### [address] [address] Humidifier Attendant: Tej Locke MD NRBC Automated 0.0 per 100 WBC Normal 0.0 [facility] Comment on above: Performed By: #### C DP, CP, LIPRF, TSHX #### [address] [address] Humidifier Attendant: Tej Locke MD Platelet mean volume (Bld) [Entitic vol] 11.1 fL Normal 8.1-13.5 [facility] Comment on above: Performed By: #### C DP, CP, LIPRF, TSHX #### [address] [address] Humidifier Attendant: Tej Locke MD Platelets (Bld) [#/Vol] 259 10*3/uL Normal 138-453 [facility] Comment on above: Performed By: #### C DP, CP, LIPRF, TSHX #### [address] [address] Humidifier Attendant: Tej Locke MD RBC (Bld) [#/Vol] 3.93 10*6/uL Low 3.95-5.11 [facility] Comment on above: Performed By: #### C DP, CP, LIPRF, TSHX #### [address] [address] Humidifier Attendant: Tej Locke MD RBC morphology finding Nom (Bld) MACROCYTOSIS PRESENT Normal [facility] Comment on above: Performed By: #### C DP, CP, LIPRF, TSHX #### [address] [address] Humidifier Attendant: Tej Locke MD WBC (Bld) [#/Vol] 5.4 10*3/uL Normal 3.5-11.3 [facility] Comment on above: Performed By: #### C DP, CP, LIPRF, TSHX #### [address] [address] Humidifier Attendant: Tej Locke MD Comp Metabolic Profon 2019 (cont.) Normal [facility] Comment on above: Result Comment: Aver age GFR for 60-69 years old: 85 mL/min/1.73sq m Chronic Kidney Disease: <60 mL/min/1.73sq m Kidney failure: <15 mL/min/1.73sq m eGFR calculated using average adult body mass. Additional eGFR calculator available at: http://www.Cas[employer]/multiple_crcl_2011.htm Performed By: #### C DP, CP, LIPRF, TSHX #### [facility] [address] [place] [phone] Humidifier Attendant: Tej Locke MD Albumin [Mass/Vol] 4.3 g/dL Normal 3.5-5.2 [facility] Comment on above: Performed By: #### C DP, CP, LIPRF, TSHX #### [facility] [address] [place] [phone] Humidifier Attendant: Tej Locke MD Albumin/Glob Ratio 1.9 Normal 1.0-2.5 [facility] Comment on above: Performed By: #### C DP, CP, LIPRF, TSHX #### [facility] [address] [place] [address] Humidifier Attendant: Tej Locke MD Alkaline Phos 136 U/L High 35-104 [facility] Comment on above: Performed By: #### C DP, CP, LIPRF, TSHX #### [facility] [address] [place] [address] Humidifier Attendant: Tej Locke MD ALT [Catalytic activity/Vol] 50 U/L High 5-33 [facility] Comment on above: Performed By: #### C DP, CP, LIPRF, TSHX #### [facility] [address] [place] [address] Humidifier Attendant: Tej Locke MD Anion gap [Moles/Vol] 12 mmol/L Normal 9-17 [facility] Comment on above: Performed By: #### C DP, CP, LIPRF, TSHX #### [address] [address] Humidifier Attendant: Tej Locke MD AST [Catalytic activity/Vol] 28 U/L Normal <32 [facility] Comment on above: Performed By: #### C DP, CP, LIPRF, TSHX #### [address] [address] Humidifier Attendant: Tej Locke MD Bilirubin [Mass/Vol] 0.18 mg/dL Low 0.3-1.2 [facility] Comment on above: Performed By: #### C DP, CP, LIPRF, TSHX #### [address] [address] Humidifier Attendant: Tej Locke MD Calcium [Mass/Vol] 10.7 mg/dL High 8.6-10.4 [facility] Comment on above: Performed By: #### C DP, CP, LIPRF, TSHX #### [address] [address] Humidifier Attendant: Tej Locke MD Chloride [Moles/Vol] 109 mmol/L High 98-107 [facility] Comment on above: Performed By: #### C DP, CP, LIPRF, TSHX #### [address] [address] Humidifier Attendant: Tej Locke MD CO2 [Moles/Vol] 19 mmol/L Low 20-31 [facility] Comment on above: Performed By: #### C DP, CP, LIPRF, TSHX #### [facility] [address] [place] [address] Humidifier Attendant: Tej Locke MD Creatinine [Mass/Vol] 1.13 mg/dL High 0.50-0.90 [facility] Comment on above: Performed By: #### C DP, CP, LIPRF, TSHX #### [facility] [address] [place] [address] Humidifier Attendant: Tej Locke MD GFR, Amer 59 mL/min Low >60 [facility] Comment on above: Performed By: #### C DP, CP, LIPRF, TSHX #### [address] [address] Humidifier Attendant: Tej Locke MD GFR,non Amer 49 mL/min Low >60 [facility] Comment on above: Performed By: #### C DP, CP, LIPRF, TSHX #### [address] [address] Humidifier Attendant: Tej Locke MD Glucose [Mass/Vol] 87 mg/dL Normal 70-99 [facility] Comment on above: Performed By: #### C DP, CP, LIPRF, TSHX #### [address] [address] Humidifier Attendant: Tej Locke MD Potassium [Moles/Vol] 4.4 mmol/L Normal 3.7-5.3 [facility] Comment on above: Performed By: #### C DP, CP, LIPRF, TSHX #### [address] [address] Humidifier Attendant: Tje Locke MD Protein [Mass/Vol] 6.6 g/dL Normal 6.4-8.3 [facility] Comment on above: Performed By: #### C DP, CP, LIPRF, TSHX #### [address] [address] Humidifier Attendant: Tej Locke MD Sodium [Moles/Vol] 140 mmol/L Normal 135-144 [facility] Comment on above: Performed By: #### C DP, CP, LIPRF, TSHX #### [employer] [address] [place] [address] Humidifier Attendant: Tej Locke MD Urea nitrogen [Mass/Vol] 21 mg/dL Normal 8-23 [facility] Comment on above: Performed By: #### C DP, CP, LIPRF, TSHX #### [facility] [address] [place] [phone] Humidifier Attendant: Tej Locke MD Lipid Prof, Fastingon 2019 Cholesterol [Mass/Vol] 139 mg/dL Normal <200 [facility] Comment on above: Result Comment: Cholesterol Guidelines: <200 Desirable 200-240 Borderline >240 Undesirable Performed By: #### C DP, CP, LIPRF, TSHX #### [facility] [address] [place] [address] Humidifier Attendant: Tej Locke MD Cholesterol in HDL [Mass/Vol] 46 mg/dL Normal >40 [facility] Comment on above: Result Comment: HDL Guidelines: <40 Undesirable 40-59 Borderline >59 Desirable Performed By: #### C DP, CP, LIPRF, TSHX #### [facility] [address] [place] [address] Humidifier Attendant: Tej Locke MD Cholesterol in LDL [Mass/Vol] 73 mg/dL Normal 0-130 [facility] Comment on above: Result Comment: LDL Guidelines: <100 Desirable 100-129 Near to/above Desirable 130-159 Borderline >159 Undesirable Direct (measured) LDL and calculated LDL are not interchangeable tests. Performed By: #### C DP, CP, LIPRF, TSHX #### [employer] [address] [place] [phone] Humidifier Attendant: Tej Locke MD Cholesterol.total/Judy sterol in HDL [Mass ratio] 3.0 {ratio} Normal <5 [facility] Comment on above: Performed By: #### C DP, CP, LIPRF, TSHX #### [employer] [address] [place], [place] [phone] Humidifier Attendant: Tej Locke MD Triglyceride,Fasting 102 mg/dL Normal <150 [facility] Comment on above: Result Comment: Triglyceride Guidelines: <150 Desirable 150-199 Borderline 200-499 High >499 Very high Based on AHA Guidelines for fasting triglyceride, March 2012. Performed By: #### C DP, CP, LIPRF, TSHX #### [facility] [place], [place] [phone] Humidifier Attendant: Tej Locke MD TSH w/reflex to FT4on 2019 TSH Qn 1.01 m[IU]/L Normal 0.30-5.00 [facility] Comment on above: Performed By: #### C DP, CP, LIPRF, TSHX #### [address] [phone] Humidifier Attendant: Tej Locke MD CBC Auto Differentialon Basophils (Bld) [#/Vol] 0.06 10*3/uL [place] Basophils/100 WBC (Bld) 1 % 0 - 2 % M [place], [place] Differential Type NOT REPORTED [place] Eosinophils (Bld) [#/Vol] 0.15 10*3/uL [place] Eosinophils/100 WBC (Bld) 3 % 1 - 4 % [place] Erythrocyte distribution width (RBC) [Ratio] 13.2 % 11.8 - 14.4 % [place] Hematocrit (Bld) [Volume fraction] 42.7 % 36.3 - 47.1 % [place] Hemoglobin (Bld) [Mass/Vol] 12.6 g/dL 11.9 - 15.1 g/dL [place] Immature granulocytes (Bld) [#/Vol] 0 % 0 [place] Immature granulocytes (Bld) [#/Vol] 10*3/uL [place] Interpretation and review of laboratory results Abnormal [place] Lymphocytes (Bld) [#/Vol] 1.57 10*3/uL [place] Lymphocytes/100 WBC (Bld) 29 % 24 - 43 % [place] MCH (RBC) [Entitic mass] 32.1 pg 25.2 - 33.5 pg [place] MCHC (RBC) [Mass/Vol] 29.5 g/dL 28.4 - 34.8 g/dL [place] MCV (RBC) [Entitic vol] 108.7 fL High 82.6 - 102.9 fL [place] Monocytes (Bld) [#/Vol] 0.45 10*3/uL [place] Monocytes/100 WBC (Bld) 8 % 3 - 12 % M [place], [place] Platelet mean volume (Bld) [Entitic vol] 11.1 fL 8.1 - 13.5 fL [place] Platelets (Bld) [#/Vol] NOT REPORTED [place] Platelets (Bld) [#/Vol] 259 10*3/uL [place] RBC (Bld) [#/Vol] 3.93 10*6/uL Low 3.95 - 5.11 m/uL [place] RBC morphology finding Nom (Bld) MACROCYTOSIS PRESENT [place], [place] Segmented neutrophils/100 WBC (Bld) 59 % 36 - 65 % [place] Segs Absolute 3.12 [place], [place] WBC (Bld) [#/Vol] 5.4 10*3/uL [place] WBC (Bld) [#/Vol] 0.0 10*3/uL 0.0 per 100 WBC [place] WBC Morphology NOT REPORTED [place], [place] CBC with Diffon 03-10-2020 Auto Diff Performed NOT REPORTED Normal [facility] Comment on above: Performed By: #### C DP, CP, LIPRF, TSHX #### [facility] [place] [address] Humidifier Attendant: Tej Locke MD Platelet Estimate NOT REPORTED Normal [facility] Comment on above: Performed By: #### C DP, CP, LIPRF, TSHX #### [facility] [place], [place] [phone] Humidifier Attendant: Tej Locke MD WBC Morphology NOT REPORTED Normal [facility] Comment on above: Performed By: #### C DP, CP, LIPRF, TSHX #### [facility] [place], [place] [phone] Humidifier Attendant: Tej Locke MD Cardiacon 03-10-2020 Cholesterol [Mass/Vol] 139 mg/dL (<200) [facility] Work Phone: Comment on above: Note: Cholesterol Gu idelines:<200 [id number] Borderline>240 UndesirableResponsible Observer: CCEV AUTOFILE ([id number]) Comp Metabolic Profon 2019 BUN/CRE Ratio NOT REPORTED Normal 02-20 [facility] Comment on above: Performed By: #### C DP, CP, LIPRF, TSHX #### [facility] [place], [place] [phone] Humidifier Attendant: Tej Locke MD Staging: NOT REPORTED Normal [facility] Comment on above: Performed By: #### C DP, CP, LIPRF, TSHX #### [facility] [place], [place] [phone] Humidifier Attendant: Tej Locke MD Comprehensive Metabolic Pane eusebia 03-10-2020 Albumin [Mass/Vol] 4.3 g/dL 3.5 - 5.2 g/dL [place] Albumin/Globulin [Mass ratio] 1.9 {ratio} [place] ALP [Catalytic activity/Vol] 136 U/L High 35 - 104 U/L [place] ALT [Catalytic activity/Vol] 50 U/L High 5 - 33 U/L [place] Anion gap [Moles/Vol] 12 mmol/L 9 - 17 mmol/L [place] AST [Catalytic activity/Vol] 28 U/L <32 [place] Bilirubin Ql (U) 0.18 mg/dL Low 0.3 - 1.2 mg/dL [place] Bun/Cre Ratio NOT REPORTED [place] Calcium [Mass/Vol] 10.7 mg/dL High 8.6 - 10. 4 mg/dL [place] Chloride [Moles/Vol] 109 mmol/L High 98 - 10 7 mmol/L [place] CO2 [Moles/Vol] 19 mmol/L Low 20 - 31 mmol/L [place] Creatinine [Mass/Vol] 1.13 mg/dL High 0.5 - 0.9 mg/dL [place] GFR 59 mL/min Low >60 [place] GFR Non- 49 mL/min Low >60 [place] GFR/1.73 sq M predicted among non-blacks MDRD (S/P/Bld) [Vol rate/Area] [place] Comment on above: Average GFR for 60-6 9 years old: 85 mL/min/1.73sq m Chronic Kidney Disease: <60 mL/min/1.73sq m Kidney failure: <15 mL/min/1.73sq m eGFR calculated using average adult body mass. Additional eGFR calculator available at: http://www.Casengo/multiple_crcl_2012.htm GFR/1.73 sq M predicted among non-blacks MDRD (S/P/Bld) [Vol rate/Area] NOT REPORTED [place] Glucose [Mass/Vol] 87 mg/dL 70 - 99 mg/dL [place] Interpretation and review of laboratory results Abnormal [place] Potassium [Moles/Vol] 4.4 mmol/L 3.7 - 5.3 mmol/L [place] Protein [Mass/Vol] 6.6 g/dL 6.4 - 8.3 g/dL [place] Sodium [Moles/Vol] 140 mmol/L 135 - 144 mmol/L [place] Urea nitrogen [Mass/Vol] 21 mg/dL 8 - 23 mg/dL [facility], [place] Hematology 03-10-2020 Basophils/100 WBC (Bld) 1 % (0-2) [facility]: Comment on above: Note: Responsible Ob food beverage server: XNV AUTOFILE (3018) Eosinophils (Bld) [#/Vol] 0.15 10*3/uL (0.00-0.44 ) [facility] Work Phone: Comment on above: Note: Responsible Ob food beverage server: XNV AUTOFILE (3018) Eosinophils/100 WBC (Bld) 3 % (1-4) [facility] Work Phone: Comment on above: Note: Responsible Ob food beverage server: XNV AUTOFILE (3018) Hematocrit (Bld) [Volume fraction] 42.7 % (36.3-47.1 ) [facility] Work Phone: Comment on above: Note: Responsible Ob food beverage server: XNV AUTOFILE (3018) Hemoglobin (Bld) [Mass/Vol] 12.6 g/dL (11.9-15.1 ) [facility] Work Phone: Comment on above: Note: Responsible Ob food beverage server: XNV AUTOFILE (3018) Lymphocytes (Bld) [#/Vol] 1.57 10*3/uL (1.10-3.70 ) [facility] Work Phone: Comment on above: Note: Responsible Ob food beverage server: XNV AUTOFILE (3018) Lymphocytes/100 WBC (Bld) 29 % (24-43) [facility] Work Phone: Comment on above: Note: Responsible Ob food beverage server: XNV AUTOFILE (3018) MCH (RBC) [Entitic mass] 32.1 pg (25.2-33.5 ) [facility] Work Phone: Comment on above: Note: Responsible Ob food beverage server: XNV AUTOFILE (3018) MCV (RBC) [Entitic vol] 108.7 fL High (82. 6-102. 9) [facility] Work Phone: Comment on above: Note: Responsible Ob food beverage server: XNV AUTOFILE (3018) Monocytes (Bld) [#/Vol] 0.45 10*3/uL (0.1 0-1.20 ) [facility] Work Phone: Comment on above: Note: Responsible Ob food beverage server: XNV AUTOFILE (3018) Monocytes/100 WBC (Bld) 8 % (3-12) [facility] Work [facility]: Comment on above: Note: Responsible Ob food beverage server: XNV AUTOFILE (3018) Platelets (Bld) [#/Vol] NOT REPORTED [facility] Work Phone: Platelets (Bld) [#/Vol] 259 10*3/uL (138-453) [facility] Work Phone: Comment on above: Note: Responsible Ob food beverage server: XNV AUTOFILE (3018) RBC (Bld) [#/Vol] 3.93 10*6/uL Low (3.95-5.11 ) [facility] Work Phone: Comment on above: Note: Responsible Ob food beverage server: XNV AUTOFILE (3018) RBC morphology finding Nom (Bld) MACROCYTOSIS PRESENT [facility] Work Phone: Comment on above: Note: Responsible Ob food beverage server: XNV AUTOFILE (3018) WBC (Bld) [#/Vol] 5.4 10*3/uL (3.5-11.3) [facility] Work Phone: Comment on above: Note: Responsible Ob food beverage server: XNV AUTOFILE (3018) WBC (Bld) [#/Vol] 0.0 per_100_WBC (0.0) [facility] Work Phone: Comment on above: Note: Responsible Ob food beverage server: XNV AUTOFILE (3018) Lipid Prof, Fastingon 2019 Cholesterol,VLDL NOT REPORTED Normal 1-30 [facility] Comment on above: Performed By: #### C DP, CP, LIPRF, TSHX #### [facility] [address] [place] [address] Humidifier Attendant: Tej Locke MD Lipid, Fastingon 03-10-2020 Cholesterol [Mass/Vol] 139 mg/dL <200 [place], [place] Comment on above: Cholesterol Guidelines: <200 Desirable 200-240 Borderline >240 Undesirable Cholesterol in HDL [Mass/Vol] 46 mg/dL >40 [place], [place] Comment on above: HDL Guidelines: <40 Undesirable 40-59 Borderline >59 Desirable Cholesterol in LDL [Mass/Vol] 73 mg/dL 0 - 130 mg/dL [place] Comment on above: LDL Guidelines: <100 Desirable 100-129 Near to/above Desirable 130-159 Borderline >159 Undesirable Direct (measured) LDL and calculated LDL are not interchangeable tests. Cholesterol in VLDL [Mass/Vol] NOT REPORTED 1 - 30 mg/dL [place] Cholesterol.total/Judy sterol in HDL [Mass ratio] 3 {ratio} <5 [place] Triglyceride, Fasting 102 mg/dL <150 [place], [place] Comment on above: Triglyceride Guidelines: <150 Desirable 150-199 Borderline 200-499 High >499 Very high Based on AHA Guidelines for fasting triglyceride, March 2012. Metabolic Panelon 03-10-2020 Albumin [Mass/Vol] 4.3 g/dL (3.5-5.2) [facility] Work Phone: Comment on above: Note: Responsible Ob food beverage server: CCEV AUTOFILE (3002) ALT [Catalytic activity/Vol] 50 U/L High (5-33) [facility] Work Phone: Comment on above: Note: Responsible Ob food beverage server: CCEV AUTOFILE (3002) Anion gap [Moles/Vol] 12 mmol/L (9-17) [facility] Work Phone: Comment on above: Note: Responsible Ob food beverage server: CCEV AUTOFILE (3002) AST [Catalytic activity/Vol] 28 U/L (<32) [facility] Work Phone: Comment on above: Note: Responsible Ob food beverage server: CCEV AUTOFILE (3002) Bilirubin [Mass/Vol] 0.18 mg/dL Low (0.3-1.2) [facility] Work Phone: Comment on above: Note: Responsible Ob food beverage server: CCEV AUTOFILE (3002) Calcium [Mass/Vol] 10.7 mg/dL High (8.6-10.4) [facility] Work Phone: Comment on above: Note: Responsible Ob food beverage server: CCEV AUTOFILE (3002) Chloride [Moles/Vol] 109 mmol/L High (98-107) [facility] Work Phone: Comment on above: Note: Responsible Ob food beverage server: CCEV AUTOFILE (3002) CO2 [Moles/Vol] 19 mmol/L Low (20-31) [facility] Work Phone: Comment on above: Note: Responsible Ob food beverage server: CCEV AUTOFILE (3002) Creatinine [Mass/Vol] 1.13 mg/dL High (0.50- 0.90 ) [facility] Work Phone: Comment on above: Note: Responsible Ob food beverage server: CCEV AUTOFILE (3002) Glucose [Mass/Vol] 87 mg/dL (70-99) [facility] Work Phone: Comment on above: Note: Responsible Ob food beverage server: CCEV AUTOFILE (3002) Potassium [Moles/Vol] 4.4 mmol/L (3.7-5.3) [facility] Work Phone: Comment on above: Note: Responsible Ob food beverage server: CCEV AUTOFILE (3002) Protein [Mass/Vol] 6.6 g/dL (6.4-8.3) [facility] Work Phone: Comment on above: Note: Responsible Ob food beverage server: CCEV AUTOFILE (3002) Sodium [Moles/Vol] 140 mmol/L (135-144) [facility] Work Phone: Comment on above: Note: Responsible Ob food beverage server: CCEV AUTOFILE (3002) Urea nitrogen [Mass/Vol] 21 mg/dL (8-23) [facility] Work Phone: Comment on above: Note: Responsible Ob food beverage server: CCEV AUTOFILE (3002) Otheron 03-10-2020 (cont.) See Note [facility] Work Phone: Comment on above: Note: Average GFR fo r 60-69 years old:85 mL/min/1.73sq mChronic Kidney Disease:<60 mL/min/1.73sq mKidney failure:<15 mL/min/1.73sq meGFR calculated using average adult body mass. Additional eGFR calculatoravailable at:http://www.Casengo/multiple_crcl_2012.htmResponsible Observer: CCEV AUTOFILE (3002) Abs. Basophil 0.06 k/uL (0.00-0.20 ) [facility] Work Phone: Comment on above: Note: Responsible Ob food beverage server: XNV AUTOFILE (3018) Abs.Imm.Granulocyte <0.03 k/uL (0.00-0. 30 ) [facility] Work Phone: Comment on above: Note: Responsible Ob food beverage server: XNV AUTOFILE (3018) Abs.Neutrophil (Seg) 3.12 k/uL (1.50-8 .10 ) [facility] Work Phone: Comment on above: Note: Responsible Ob food beverage server: XNV AUTOFILE (3018) Albumin/Glob Ratio 1.9 (1.0-2.5) [facility] Work Phone: Comment on above: Note: Responsible Ob food beverage server: CCEV AUTOFILE (3002) Alkaline Phos 136 U/L High (35-104) [facility] Work Phone: Comment on above: Note: Responsible Ob food beverage server: CCEV AUTOFILE (3002) Auto Diff Performed NOT REPORTED [facility] Work Phone: BUN/CRE Ratio NOT REPORTED (9-20) [facility] Work Phone: Cholesterol,HDL 46 mg/dL (>40) [facility] Work Phone: Comment on above: Note: HDL Guidelines :<40 [id number] Borderline>59 DesirableResponsible Observer: CCEV AUTOFILE (3002) Cholesterol,LDL 73 mg/dL (0-130) [facility] Work Phone: Comment on above: Note: LDL Guidelines :<100 [id number] Near to/above [id number] Borderline>159 UndesirableDirect (measured) LDL and calculated LDL are not interchangeable tests.Responsible Observer: CCEV AUTOFILE (3002) Cholesterol,VLDL NOT REPORTED mg/dL (1-30) [facility] Work Phone: Cholesterol.total/Judy sterol in HDL [Mass ratio] 3.0 {ratio} (<5) [facility] Work Phone: Comment on above: Note: Responsible Ob food beverage server: CCEV AUTOFILE (3002) Erythrocyte distribution width (RBC) [Ratio] 13.2 % (11.8-14.4 ) [facility] Work Phone: Comment on above: Note: Responsible Ob food beverage server: XNV AUTOFILE (3018) GFR, Amer 59 mL/min Low (>60) [facility] Work Phone: Comment on above: Note: Responsible Ob food beverage server: CCEV AUTOFILE (3002) GFR,non Amer 49 mL/min Low (>60) [facility] Work Phone: Comment on above: Note: Responsible Ob food beverage server: CCEV AUTOFILE (3002) Immature granulocytes (Bld) [#/Vol] 0 % (0) [facility] Work Phone: Comment on above: Note: Responsible Ob food beverage server: XNV AUTOFILE (6803) MCHC (RBC) [Mass/Vol] 29.5 g/dL (28.4- 34.8 ) [facility] Work Phone: Comment on above: Note: Responsible Ob food beverage server: XNV AUTOFILE ([id number]) Performing Lab: see note [facility] Work Phone: Comment on above: Note: [facility] [address] [facility] [address] Platelet mean volume (Bld) [Entitic vol] 11.1 fL (8.1-13.5) [facility] Work Phone: Comment on above: Note: Responsible Ob food beverage server: XNV AUTOFILE ([id number]) Reported Physicians See Note [facility] Work Phone: Comment on above: Note: Reported Physi cians:Ordering: Cotton, AimeeAttending: Cotton, AimeeReferring: Cotton, Karla Segmented neutrophils/100 WBC (Bld) 59 % (36-65) [facility] Work Phone: Comment on above: Note: Responsible Ob food beverage server: XNV AUTOFILE ([id number]) Staging: NOT REPORTED [facility] Work Phone: Thyroid Stim. Horm. 1.01 mIU/L (0.30-5. 00 ) [facility] Work Phone: Comment on above: Note: Responsible Ob food beverage server: NA ARORA ([id number]) Triglyceride,Fasting 102 mg/dL (<150) [facility] Work Phone: Comment on above: Note: Triglyceride G uidelines:<150 [id number] [id number] High>499 Very highBased on AHA Guidelines for fasting triglyceride, March 2012.Responsible Observer: CCEV AUTOFILE ([id number]) WBC Morphology NOT REPORTED [facility] Work Phone: TSH with Reflexon 03-10-2020 TSH Qn 1.01 m[IU]/L [place], [place] Creatinine, Serumon 08-03-19 20 Creatinine [Mass/Vol] 1.06 mg/dL High 0.5 - 0.9 mg/dL [place], [place] GFR >60 >60 mL/min [place], [place] GFR Non- 53 mL/min Low >60 [place] Interpretation and review of laboratory results Abnormal [place] Glucose, randomon 08-03-2019 Glucose [Mass/Vol] 98 mg/dL 70 - 99 mg/dL [place] Lipid Panelon 08-03-2019 Cholesterol [Mass/Vol] 145 mg/dL <200 [place] Comment on above: Cholesterol Guidelines: <200 Desirable 200-240 Borderline >240 Undesirable Cholesterol in HDL [Mass/Vol] 54 mg/dL >40 [place] Comment on above: HDL Guidelines: <40 Undesirable 40-59 Borderline >59 Desirable Cholesterol in LDL [Mass/Vol] 75 mg/dL 0 - 130 mg/dL [place] Comment on above: LDL Guidelines: <100 Desirable 100-129 Near to/above Desirable 130-159 Borderline >159 Undesirable Direct (measured) LDL and calculated LDL are not interchangeable tests. Cholesterol in VLDL [Mass/Vol] NOT REPORTED 1 - 30 mg/dL [place] Cholesterol.total/Judy sterol in HDL [Mass ratio] 2.7 {ratio} <5 [place] Triglyceride [Mass/Vol] 80 mg/dL <150 [place], [place] Comment on above: Triglyceride Guidelines: <150 Desirable 150-199 Borderline 200-499 High >499 Very high Based on AHA Guidelines for fasting triglyceride, March 2012. Moneta Levelon 08-03-2019 Moneta Date Last Dose NOT REPORTED [place], [place] Moneta Dose Amount NOT REPORTED [place], [place] Moneta Dose Time NOT REPORTED [place] Moneta Lvl 1.1 mmol/L 0.6 - 1.2 mmol/L [place] Metabolic Panelon 08-03-2019 GFR/1.73 sq M predicted among non-blacks MDRD (S/P/Bld) [Vol rate/Area] [place], [place] Comment on above: Average GFR for 60-6 9 years old: 85 mL/min/1.73sq m Chronic Kidney Disease: <60 mL/min/1.73sq m Kidney failure: <15 mL/min/1.73sq m eGFR calculated using average adult body mass. Additional eGFR calculator available at: http://www.Casengo/multiple_crcl_2012.htm Stage 1: Some kidney damage normal GFR Stage 2: Mild kidney damage GFR 60-89 Stage 3: Moderate kidney damage GFR 30-59 Stage 4: Severe kidney damage GFR 15-29 Stage 5: Severe kidney damage GFR <15 ESRD - chronic treatment by dialysis or transplant TSH without Reflexon 020 TSH Qn 1.45 m[IU]/L [place], [place] US BREAST LIMITED LEFTon 1. Previously descri bed filling defects within dilated ducts is not redemonstrated. While dilated ducts are present, there is no filling defect or mass in this region, therefore biopsy was not performed. 2. Previously described sonographic abnormality in the 4 o'clock left breast could not be redemonstrated. Imaging throughout the lateral aspect of the breast did not demonstrate a sonographic abnormality. Therefore biopsy was not performed. Recommend left mammogram and left retroareolar ultrasound follow-up for the initial mammographic findings and duct ectasia. I discussed these findings and recommendations with the patient in person at the time of imaging. BI-RADS 3 BIRADS: BIRADS - CATEGORY 3 Findings are probably benign. A short interval follow-up is recommended in 6 months. OVERALL ASSESSMENT - PROBABLY BENIGN. A letter of notification will be sent to the patient regarding the results. [place] EXAMINATION: TARGETE D ULTRASOUND OF THE LEFT BREAST 04/10/2019 COMPARISON: Diagnostic ultrasound 03/11/2019. Mammography 02/25/2019. HISTORY: ORDERING SYSTEM PROVIDED HISTORY: Abnormal mammogram of left breast TECHNOLOGIST PROVIDED HISTORY: Breast biopsy cancelled - unable to visualize breast lesion; dilated ducts appear abnormal mammogram The patient is asymptomatic. No nipple discharge. FINDINGS: Ultrasound imaging of the left breast was performed in anticipation of biopsy. Subareolar region was imaged, which demonstrates duct ectasia. Previously demonstrated filling defect within a duct is not demonstrated on this exam. No evidence for solid mass in this region. Biopsy was therefore not performed in this region as no target was demonstrated. Imaging was also performed in the previously described sonographic abnormality inches the 4 o'clock position, which was not reproduced. Imaging throughout the lateral aspect of the left breast reveals no sonographic abnormality. Biopsy was therefore not performed in this region as no target was demonstrated. [facility] SystemsF[facility]EM[facility] CAN[facility]ER INSTITUTEMAH[facility] Edi, Angelica Incoming Radiant Results From [employer] - 04/10/2019 12:52 PM EST EXAMINATION: TARGETED ULTRASOUND OF THE LEFT BREAST 04/10/2019 COMPARISON: Diagnostic ultrasound 03/11/2019. Mammography 02/25/2019. HISTORY: ORDERING SYSTEM PROVIDED HISTORY: Abnormal mammogram of left breast TECHNOLOGIST PROVIDED HISTORY: Breast biopsy cancelled - unable to visualize breast lesion; dilated ducts appear abnormal mammogram The patient is asymptomatic. No nipple discharge. FINDINGS: Ultrasound imaging of the left breast was performed in anticipation of biopsy. Subareolar region was imaged, which demonstrates duct ectasia. Previously demonstrated filling defect within a duct is not demonstrated on this exam. No evidence for solid mass in this region. Biopsy was therefore not performed in this region as no target was demonstrated. Imaging was also performed in the previously described sonographic abnormality inches the 4 o'clock position, which was not reproduced. Imaging throughout the lateral aspect of the left breast reveals no sonographic abnormality. Biopsy was therefore not performed in this region as no target was demonstrated. IMPRESSION: 1. Previously described filling defects within dilated ducts is not redemonstrated. While dilated ducts are present, there is no filling defect or mass in this region, therefore biopsy was not performed. 2. Previously described sonographic abnormality in the 4 o'clock left breast could not be redemonstrated. Imaging throughout the lateral aspect of the breast did not demonstrate a sonographic abnormality. Therefore biopsy was not performed. Recommend left mammogram and left retroareolar ultrasound follow-up for the initial mammographic findings and duct ectasia. I discussed these findings and recommendations with the patient in person at the time of imaging. BI-RADS 3 BIRADS: BIRADS - CATEGORY 3 Findings are probably benign. A short interval follow-up is recommended in 6 months. OVERALL ASSESSMENT - PROBABLY BENIGN. A letter of notification will be sent to the patient regarding the results. [place] US BREAST COMPLETE LEFTon 2 site biopsy is advised, 1 of the dilated ducts with filling defects in the retroareolar left breast as well as biopsy of the irregular hypoechoic taller than wide mass inches the 4 o'clock position 9-10 cm from the nipple. BIRADS: BI-RADS 4 C BIRADS - CATEGORY 4C Moderate suspicion for malignancy. Findings demonstrate a suspicious abnormality. Biopsy should be considered at this time. OVERALL ASSESSMENT - SUSPICIOUS A letter of notification will be sent to the patient regarding the results. My findings and recommendations were discussed with the patient at the time of service. A dental sales representative from the radiology department will be contacting your office and assisting the patient in getting appropriate follow-up. [place] EXAMINATION: TARGETE D ULTRASOUND OF THE LEFT BREAST 03/11/2019 COMPARISON: None. HISTORY: ORDERING SYSTEM PROVIDED HISTORY: Duct ectasia of breast, left TECHNOLOGIST PROVIDED HISTORY: Abnormal; mammogram FINDINGS: Targeted ultrasound of the retroareolar left breast and lateral left breast was obtained. Within the retroareolar left breast, there are dilated ducts with a vascular filling defects with the parents of soft tissue suspicious for mass. Biopsy is advised. Within the lateral left breast, 9-10 cm from the nipple at the 4 o'clock position, there is an irregular hypoechoic mass that is hard with the last high-grade fee. The mass is taller than wide and measures 0.8 x 0.7 x 0.5 cm. Targeted images of the axilla show no lymphadenopathy. [place], [place] Perry, Mhpn Incoming Radiant Results From [employer] - 03/11/2019 1:56 PM EDT EXAMINATION: TARGETED ULTRASOUND OF THE LEFT BREAST 03/11/2019 COMPARISON: None. HISTORY: ORDERING SYSTEM PROVIDED HISTORY: Duct ectasia of breast, left TECHNOLOGIST PROVIDED HISTORY: Abnormal; mammogram FINDINGS: Targeted ultrasound of the retroareolar left breast and lateral left breast was obtained. Within the retroareolar left breast, there are dilated ducts with a vascular filling defects with the parents of soft tissue suspicious for mass. Biopsy is advised. Within the lateral left breast, 9-10 cm from the nipple at the 4 o'clock position, there is an irregular hypoechoic mass that is hard with the last high-grade fee. The mass is taller than wide and measures 0.8 x 0.7 x 0.5 cm. Targeted images of the axilla show no lymphadenopathy. IMPRESSION: 2 site biopsy is advised, 1 of the dilated ducts with filling defects in the retroareolar left breast as well as biopsy of the irregular hypoechoic taller than wide mass inches the 4 o'clock position 9-10 cm from the nipple. BIRADS: BI-RADS 4 C BIRADS - CATEGORY 4C Moderate suspicion for malignancy. Findings demonstrate a suspicious abnormality. Biopsy should be considered at this time. OVERALL ASSESSMENT - SUSPICIOUS A letter of notification will be sent to the patient regarding the results. My findings and recommendations were discussed with the patient at the time of service. A dental sales representative from the radiology department will be contacting your office and assisting the patient in getting appropriate follow-up. [facility] CAN[facility]STIT[facility]EM[facility] XR FOOT RIGHT (MIN 3 VIEWS)o n 02-16-2019 No acute osseous abnormality. 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 [facility] EXAMINATION: THREE X RAY VIEWS OF THE RIGHT FOOT 02/16/2019 11:39 am COMPARISON: None. 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 Lisfranc alignment is normal. 5th metatarsal base is intact. Talonavicular degenerative change. [facility] Perry, Mhpn Incoming Radiant Results From [employer] - 02/16/2019 12:08 PM EDT EXAMINATION: THREE XRAY VIEWS OF THE RIGHT FOOT 02/16/2019 11:39 am COMPARISON: None. 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 Lisfranc alignment is normal. 5th metatarsal base is intact. Talonavicular degenerative change. IMPRESSION: No acute osseous abnormality. 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 [employer] [facility] 11-14-2018 Cholesterol [Mass/Vol] 150 mg/dL (<200) [facility] Work Phone: Comment on above: Note: Cholesterol Gu idelines: <200 Desirable 200-240 Borderline >240 Undesirable Responsible Observer: CET TWO AUTOFILE (3006) Triglyceride [Mass/Vol] 147 mg/dL (<150) [facility] Work Phone: Comment on above: Note: Triglyceride G uidelines: <150 Desirable 150-199 Borderline 200-499 High >499 Very high Based on AHA Guidelines for fasting triglyceride, March 2012. Responsible Observer: LUIZ STOVER AUTOFILE (3006) Hematologyon 11-14-2018 Basophils/100 WBC (Bld) 1 % (0-2) [facility] Work Phone: Comment on above: Note: Responsible Ob food beverage server: XNT AUTOFILE (3019) Eosinophils (Bld) [#/Vol] 0.15 10*3/uL (0.00-0.44 ) [facility] Work Phone: Comment on above: Note: Responsible Ob food beverage server: XNT AUTOFILE (3019) Eosinophils/100 WBC (Bld) 3 % (1-4) [facility] Work Phone: Comment on above: Note: Responsible Ob food beverage server: XNT AUTOFILE (3019) Hematocrit (Bld) [Volume fraction] 39.9 % (36.3-47.1 ) [facility] Work Phone: Comment on above: Note: Responsible Ob food beverage server: XNT AUTOFILE (3019) Hemoglobin (Bld) [Mass/Vol] 12.5 g/dL (11.9-15.1 ) [facility] Work Phone: Comment on above: Note: Responsible Ob food beverage server: XNT AUTOFILE (3019) Lymphocytes (Bld) [#/Vol] 1.97 10*3/uL (1.10-3.70 ) [facility] Work Phone: Comment on above: Note: Responsible Ob food beverage server: XNT AUTOFILE (3019) Lymphocytes/100 WBC (Bld) 36 % (24-43) [facility] Work Phone: Comment on above: Note: Responsible Ob food beverage server: XNT AUTOFILE (3019) MCH (RBC) [Entitic mass] 31.2 pg (25.2-33.5 ) [facility] Work Phone: Comment on above: Note: Responsible Ob food beverage server: XNT AUTOFILE (9) MCV (RBC) [Entitic vol] 99.5 fL (82. 6-102. 9) [facility] Work Phone: Comment on above: Note: Responsible Ob food beverage server: XNT AUTOFILE (9) Monocytes (Bld) [#/Vol] 0.54 10*3/uL (0.1 0-1.20 ) [facility] Work Phone: Comment on above: Note: Responsible Ob food beverage server: XNT AUTOFILE (9) Monocytes/100 WBC (Bld) 10 % (3-12) [facility] Work Phone: Comment on above: Note: Responsible Ob food beverage server: XNT AUTOFILE (3018) Platelets (Bld) [#/Vol] NOT REPORTED [facility] Work Phone: Platelets (Bld) [#/Vol] 269 10*3/uL (138-453) [facility] Work Phone: Comment on above: Note: Responsible Ob food beverage server: XNT AUTOFILE (3018) RBC (Bld) [#/Vol] 4.01 10*6/uL (3.95-5.11 ) [facility] Work Phone: Comment on above: Note: Responsible Ob food beverage server: XNT AUTOFILE (3018) RBC morphology finding Nom (Bld) NOT REPORTED [facility] Work Phone: WBC (Bld) [#/Vol] 0.0 per_100_WBC (0.0) [facility] Work Phone: Comment on above: Note: Responsible Ob food beverage server: XNT AUTOFILE (9) WBC (Bld) [#/Vol] 5.5 10*3/uL (3.5-11.3) [facility] Work Phone: Comment on above: Note: Responsible Ob food beverage server: XNT AUTOFILE (3019) Metabolic Panelon 11-14-2018 Albumin [Mass/Vol] 4.4 g/dL (3.5-5.2) [facility] Work Phone: Comment on above: Note: Responsible Ob food beverage server: CET TWO AUTOFILE (3006) ALT [Catalytic activity/Vol] 18 U/L (5-33) [facility] Work Phone: Comment on above: Note: Responsible Ob food beverage server: CET TWO AUTOFILE (3006) Anion gap [Moles/Vol] 9 mmol/L (9-17) [facility] Work Phone: Comment on above: Note: Responsible Ob food beverage server: CET TWO AUTOFILE (3006) AST [Catalytic activity/Vol] 15 U/L (<32) [facility] Work Phone: Comment on above: Note: Responsible Ob food beverage server: CET TWO AUTOFILE (3006) Bilirubin [Mass/Vol] 0.35 mg/dL (0.3-1.2) [facility] Work Phone: Comment on above: Note: Responsible Ob food beverage server: CET TWO AUTOFILE (3006) Calcium [Mass/Vol] 10.8 mg/dL High (8.6-10.4) [facility] Work Phone: Comment on above: Note: Responsible Ob food beverage server: CET TWO AUTOFILE (3006) Chloride [Moles/Vol] 109 mmol/L High (98-107) [facility] Work Phone: Comment on above: Note: Responsible Ob food beverage server: CET TWO AUTOFILE (3006) CO2 [Moles/Vol] 24 mmol/L (20-31) [facility] Work Phone: Comment on above: Note: Responsible Ob food beverage server: CET TWO AUTOFILE (3006) Creatinine [Mass/Vol] 1.07 mg/dL High (0.50- 0.90 ) [facility] Work Phone: Comment on above: Note: Responsible Ob food beverage server: CET TWO AUTOFILE (3006) Glucose [Mass/Vol] 101 mg/dL High (70-99) [facility] Work Phone: Comment on above: Note: Responsible Ob food beverage server: CET TWO AUTOFILE (3006) Potassium [Moles/Vol] 4.3 mmol/L (3.7-5.3) [facility] Work Phone: Comment on above: Note: Responsible Ob food beverage server: CET TWO AUTOFILE (3006) Protein [Mass/Vol] 7.1 g/dL (6.4-8.3) [facility] Work Phone: Comment on above: Note: Responsible Ob food beverage server: CET TWO AUTOFILE (3006) Sodium [Moles/Vol] 142 mmol/L (135-144) [facility] Work Phone: Comment on above: Note: Responsible Ob food beverage server: [employer]ET [employer]OFILE (3006) Urea nitrogen [Mass/Vol] 15 mg/dL (8-23) [facility] Work Phone: Comment on above: Note: Responsible Ob food beverage server: [employer] (3006) Otheron 11-14-2018 (cont.) See Note [facility] Work Phone: Comment on above: Note: Average GFR fo r 60-69 years old: 85 mL/min/1.73sq mChronic Kidney Disease: <60 mL/min/1.73sq mKidney failure: <15 mL/min/1.73sq m eGFR calculated using average adult body mass. Additional eGFR calculator available at: http://www.[employer]/multiple_crcl_2011.htm Responsible Observer: CET [employer] (3006) Abs. Basophil 0.04 k/uL (0.00-0.20 ) [facility] Work Phone: Comment on above: Note: Responsible Ob food beverage server: XNT AUTOFILE (3019) Abs.Imm.Granulocyte <0.03 k/uL (0.00-0. 30 ) [facility] Work Phone: Comment on above: Note: Responsible Ob food beverage server: XNT AUTOFILE (3019) Abs.Neutrophil (Seg) 2.77 k/uL (1.50-8 .10 ) [facility] Work Phone: Comment on above: Note: Responsible Ob food beverage server: XNT AUTOFILE (3019) Albumin/Glob Ratio 1.6 (1.0-2.5) [facility] Work Phone: Comment on above: Note: Responsible Ob food beverage server: [employer] (3006) Alkaline Phos 135 U/L High (35-104) [facility] Work Phone: Comment on above: Note: Responsible Ob food beverage server: CET [employer]FILE (3006) Auto Diff Performed NOT REPORTED [facility]: BUN/CRE Ratio 14 (9-20) [facility] Work Phone: Comment on above: Note: Responsible Ob food beverage server: [employer] (3006) Cholesterol,HDL 44 mg/dL (>40) [facility] Work Phone: Comment on above: Note: HDL Guidelines : <40 Undesirable 40-59 Borderline >59 Desirable Responsible Observer: [employer] (3006) Cholesterol,LDL 77 mg/dL (0-130) [facility] Work Phone: Comment on above: Note: LDL Guidelines : <100 Desirable 100-129 Near to/above Desirable 130-159 Borderline >159 Undesirable Direct (measured) LDL and calculated LDL are not interchangeable tests.Responsible Observer: [employer] (3006) Cholesterol,VLDL NOT REPORTED mg/dL (1-30) [facility] Work Phone: Cholesterol.total/Judy sterol in HDL [Mass ratio] 3.4 {ratio} (<5) [facility] Work Phone: Comment on above: Note: Responsible Ob food beverage server: CET [employer] (3006) Erythrocyte distribution width (RBC) [Ratio] 13.2 % (11.8-14.4 ) [facility] Work Phone: Comment on above: Note: Responsible Ob food beverage server: XNT AUTOFILE (3019) GFR, Amer >60 mL/min (>60) [facility] Work Phone: Comment on above: Note: Responsible Ob food beverage server: CET [employer]FILE (3006) GFR,non Amer 52 mL/min Low (>60) [facility] Work Phone: Comment on above: Note: Responsible Ob food beverage server: CET [employer] AUTOFILE (3006) Immature granulocytes (Bld) [#/Vol] 0 % (0) [facility] Work Phone: Comment on above: Note: Responsible Ob food beverage server: XNT AUTOFILE (3019) MCHC (RBC) [Mass/Vol] 31.3 g/dL (28.4- 34.8 ) [facility] Work Phone: Comment on above: Note: Responsible Ob food beverage server: XNT AUTOFILE (3018) Performing Lab: see note [facility] Work Phone: Comment on above: Note: [facility] [address] [place] [address] Platelet mean volume (Bld) [Entitic vol] 10.8 fL (8.1-13.5) [facility] Work Phone: Comment on above: Note: Responsible Ob food beverage server: XNT AUTOFILE (3018) Reported Physicians See Note [facility] Work Phone: Comment on above: Note: Reported Physi cians:Ordering: Cotton, AimeeAttending: Cotton, AimeeReferring: Cotton, Karla Segmented neutrophils/100 WBC (Bld) 50 % (36-65) [facility] Work Phone: Comment on above: Note: Responsible Ob food beverage server: XNT [employer]OFILE (3019) Staging: See Note [facility] Work Phone: Comment on above: Note: Stage 1: Some kidney damage normal GFRStage 2: Mild kidney damage GFR 60-89Stage 3: Moderate kidney damage GFR 30-59Stage 4: Severe kidney damage GFR 15-29Stage 5: Severe kidney damage GFR <15ESRD - chronic treatment by dialysis or transplantResponsible Observer: CET TWO AUTOFILE (3006) Thyroid Stim. Horm. 1.05 mIU/L (0.30-5. 00 ) [facility] Work Phone: Comment on above: Note: Responsible Ob food beverage server: C[employer] (3006) Thyroxine, Free 0.93 ng/dL (0.93-1.70 ) [facility] Work Phone: Comment on above: Note: Responsible Ob food beverage server: CET [employer]FILE (3006) WBC Morphology NOT REPORTED [facility] Work Phone: [facility] 09-24-2018 Cholesterol [Mass/Vol] 171 mg/dL (<200) [facility] Work Phone: Comment on above: Note: Cholesterol Gu idelines: <200 Desirable 200-240 Borderline >240 Undesirable Responsible Observer: MORRIS LOUISE (MHT) (1932) Triglyceride [Mass/Vol] 400 mg/dL High (<150) [facility] Work Phone: Comment on above: Note: Triglyceride G uidelines: <150 Desirable 150-199 Borderline 200-499 High >499 Very high Based on AHA Guidelines for fasting triglyceride, March 2012. Responsible Observer: MORRIS Boyd (MHT)) Hematologyon 09-24-2018 Basophils/100 WBC (Bld) 1 % (0-2) [facility] Work Phone: Comment on above: Note: Responsible Ob food beverage server: XNT AUTOFILE (3019) Eosinophils (Bld) [#/Vol] 0.15 10*3/uL (0.00-0.44 ) [facility] Work Phone: Comment on above: Note: Responsible Ob food beverage server: XNT AUTOFILE (3019) Eosinophils/100 WBC (Bld) 2 % (1-4) [facility] Work Phone: Comment on above: Note: Responsible Ob food beverage server: XNT AUTOFILE (3019) Hematocrit (Bld) [Volume fraction] 42.8 % (36.3-47.1 ) [facility] Work Phone: Comment on above: Note: Responsible Ob food beverage server: XNT AUTOFILE (3019) Hemoglobin (Bld) [Mass/Vol] 13.7 g/dL (11.9-15.1 ) [facility] Work Phone: Comment on above: Note: Responsible Ob food beverage server: XNT AUTOFILE (3019) Lymphocytes (Bld) [#/Vol] 1.73 10*3/uL (1.10-3.70 ) [facility] Work Phone: Comment on above: Note: Responsible Ob food beverage server: XNT AUTOFILE (3019) Lymphocytes/100 WBC (Bld) 24 % (24-43) [facility] Work Phone: Comment on above: Note: Responsible Ob food beverage server: XNT AUTOFILE (3019) MCH (RBC) [Entitic mass] 31.1 pg (25.2-33.5 ) [facility] Work Phone: Comment on above: Note: Responsible Ob food beverage server: XNT AUTOFILE (3019) MCV (RBC) [Entitic vol] 97.3 fL (82. 6-102. 9) [facility] Work Phone: Comment on above: Note: Responsible Ob food beverage server: XNT AUTOFILE (3019) Monocytes (Bld) [#/Vol] 0.64 10*3/uL (0.1 0-1.20 ) [facility] Work Phone: Comment on above: Note: Responsible Ob food beverage server: XNT AUTOFILE (3019) Monocytes/100 WBC (Bld) 9 % (3-12) [facility] Work Phone: Comment on above: Note: Responsible Ob food beverage server: XNT AUTOFILE (3019) Platelets (Bld) [#/Vol] NOT REPORTED [facility] Work Phone: Platelets (Bld) [#/Vol] 280 10*3/uL (138-453) [facility] Work Phone: Comment on above: Note: Responsible Ob food beverage server: XNT AUTOFILE (0459) RBC (Bld) [#/Vol] 4.40 10*6/uL (3.95-5.11 ) [facility] Work Phone: Comment on above: Note: Responsible Ob food beverage server: XNT AUTOFILE (7349) RBC morphology finding Nom (Bld) NOT REPORTED [facility] Work Phone: WBC (Bld) [#/Vol] 7.3 10*3/uL (3.5-11.3) [facility] Work Phone: Comment on above: Note: Responsible Ob food beverage server: XNT AUTOFILE (1769) WBC (Bld) [#/Vol] 0.0 per_100_WBC (0.0) [facility] Work Phone: Comment on above: Note: Responsible Ob food beverage server: XNT AUTOFILE (3655) Metabolic Panelon 09-24-2018 Albumin [Mass/Vol] 4.2 g/dL (3.5-5.2) [facility] Work Phone: Comment on above: Note: Responsible Ob food beverage server: MORRIS LOUISE (MHT) (1932) ALT [Catalytic activity/Vol] 16 U/L (5-33) [facility] Work Phone: Comment on above: Note: Responsible Ob food beverage server: MORRIS LOUISE (MHT) (1932) Anion gap [Moles/Vol] 16 mmol/L [facility] Work Phone: Comment on above: Note: Responsible Ob food beverage server: MORRIS DE PAZTSid LOUISE (1932) AST [Catalytic activity/Vol] 14 U/L (<32) [facility] Work Phone: Comment on above: Note: Responsible Ob food beverage server: MORRIS LOUISE (MHT) (1932) Bilirubin [Mass/Vol] mg/dL Low (0.3-1.2) [facility] Work Phone: Comment on above: Note: Responsible Ob food beverage server: MORRIS LOUISE (MHT) (1932) Calcium [Mass/Vol] 11.2 mg/dL High (8.6-10.4) [facility] Work Phone: Comment on above: Note: Responsible Ob food beverage server: MORRIS LOUISE (MHT) (1932) Chloride [Moles/Vol] 103 mmol/L (98-107) [facility] Work Phone: Comment on above: Note: UNABLE TO CALC ULATE GAP, SPECIMEN REPEATEDCORRECTED ON 09/24 AT 1740: PREVIOUSLY REPORTED 112Responsible Observer: MORRIS Snyder (MHT)1932) CO2 [Moles/Vol] 22 mmol/L (20-31) [facility] Work Phone: Comment on above: Note: UNABLE TO CALC ULATE GAP, SPECIMEN REPEATEDCORRECTED ON 09/24 AT 1740: PREVIOUSLY REPORTED 24Responsible Observer: MORRIS LOUISE (MHT) (1932) Creatinine [Mass/Vol] 0.93 mg/dL High (0.50- 0.90 ) [facility] Work Phone: Comment on above: Note: Responsible Ob food beverage server: MORRIS LOUISE (MHT) (1932) Glucose [Mass/Vol] 91 mg/dL (70-99) [facility] Work Phone: Comment on above: Note: Responsible Ob food beverage server: MORRIS Snyder (MHT)1932) Potassium [Moles/Vol] 4.5 mmol/L (3.7-5.3) [facility] Work Phone: Comment on above: Note: UNABLE TO CALC ULATE GAP, SPECIMEN REPEATEDCORRECTED ON 09/24 AT 1740: PREVIOUSLY REPORTED 4.0Responsible Observer: MORRIS LOUISE (MHT) (1932) Protein [Mass/Vol] 7.0 g/dL (6.4-8.3) [facility] Work Phone: Comment on above: Note: Responsible Ob food beverage server: MORRIS LOUISE (MHT) (1932) Sodium [Moles/Vol] 141 mmol/L (135-144) [facility] Work Phone: Comment on above: Note: UNABLE TO CALC ULATE GAP, SPECIMEN REPEATEDCORRECTED ON 09/24 AT 1740: PREVIOUSLY REPORTED 133Responsible Observer: MORRIS LOUISE (MHT) (1932) Urea nitrogen [Mass/Vol] 17 mg/dL (8-23) [facility] Work Phone: Comment on above: Note: Responsible Ob food beverage server: MORRIS LOUISE (MHT) (1932) Otheron 09-24-2018 (cont.) See Note [facility] Work Phone: Comment on above: Note: Average GFR fo r 60-69 years old: 85 mL/min/1.73sq mChronic Kidney Disease: <60 mL/min/1.73sq mKidney failure: <15 mL/min/1.73sq m eGFR calculated using average adult body mass. Additional eGFR calculator available at: http://www.[employer]/multiple_crcl_2012.htm Responsible Observer: MORRIS LOUISE (MHT) (1932) Abs. Basophil 0.04 k/uL (0.00-0.20 ) [facility] Work Phone: Comment on above: Note: Responsible Ob food beverage server: XNT AUTOFILE (3019) Abs.Imm.Granulocyte 0.03 k/uL (0.00-0. 30 ) [facility] Work Phone: Comment on above: Note: Responsible Ob food beverage server: XNT AUTOFILE (3019) Abs.Neutrophil (Seg) 4.73 k/uL (1.50-8 .10 ) [facility] Work Phone: Comment on above: Note: Responsible Ob food beverage server: XNT AUTOFILE (3019) Albumin/Glob Ratio 1.5 (1.0-2.5) [facility] Work Phone: Comment on above: Note: Responsible Ob food beverage server: MORRIS LOUISE (MHT) (1932) Alkaline Phos 124 U/L High (35-104) [facility] Work Phone: Comment on above: Note: Responsible Ob food beverage server: MORRIS LOUISE (MHT) (Padmini) Auto Diff Performed NOT REPORTED [facility] Work Phone: BUN/CRE Ratio 18 (9-20) [facility] Work Phone: Comment on above: Note: Responsible Ob food beverage server: MORRIS LOUISE (MHT) (1932) Cholesterol,HDL 42 mg/dL (>40) [facility] Work Phone: Comment on above: Note: HDL Guidelines : <40 Undesirable 40-59 Borderline >59 Desirable Responsible Observer: MORRIS LOUISE (MHT) (1932) Cholesterol,LDL 49 mg/dL (0-130) [facility] Work Phone: Comment on above: Note: LDL Guidelines : <100 Desirable 100-129 Near to/above Desirable 130-159 Borderline >159 Undesirable Direct (measured) LDL and calculated LDL are not interchangeable tests.Responsible Observer: MORRIS Snyder (MHT)1932) Cholesterol,VLDL NOT REPORTED mg/dL (1-30) [facility] Work Phone: Cholesterol.total/Judy sterol in HDL [Mass ratio] 4.1 {ratio} (<5) [facility] Work Phone: Comment on above: Note: Responsible Ob food beverage server: MORRIS Snyder (MHT)1932) Erythrocyte distribution width (RBC) [Ratio] 12.7 % (11.8-14.4 ) [facility] Work Phone: Comment on above: Note: Responsible Ob food beverage server: XNT AUTOFILE (7959) GFR, Amer >60 mL/min (>60) [facility] Work Phone: Comment on above: Note: Responsible Ob food beverage server: MORRIS LOUISE (MHT) (1932) GFR,non Amer >60 mL/min (>60) [facility] Work Phone: Comment on above: Note: Responsible Ob food beverage server: MORRIS LOUISE (MHT) (Padmini) Immature granulocytes (Bld) [#/Vol] 0 % (0) [facility] Work Phone: Comment on above: Note: Responsible Ob food beverage server: XNT AUTOFILE (3018) MCHC (RBC) [Mass/Vol] 32.0 g/dL (28.4- 34.8 ) [facility] Work Phone: Comment on above: Note: Responsible Ob food beverage server: XNT AUTOFILE (3018) Performing Lab: see note [facility] Work Phone: Comment on above: Note: [facility] [address] [place] [address] Dr[address] [place] [id number] Platelet mean volume (Bld) [Entitic vol] 11.0 fL (8.1-13.5) [facility] Work Phone: Comment on above: Note: Responsible Ob food beverage server: XNT AUTOFILE (3018) Rep[facility] Phys[facility] Work Phone: Comment on above: Note: Reported Physi cians:Ordering: Karla AcevedoAttending: Karla AcevedoReferring: Karla Acevedo Segmented neutrophils/100 WBC (Bld) 64 % (36-65) [facility] Work Phone: Comment on above: Note: Responsible Ob food beverage server: XNT AUTOFILE (3018) Staging: See Note [facility] Work Phone: Comment on above: Note: Stage 1: Some kidney damage normal GFRStage 2: Mild kidney damage GFR 60-89Stage 3: Moderate kidney damage GFR 30-59Stage 4: Severe kidney damage GFR 15-29Stage 5: Severe kidney damage GFR <15ESRD - chronic treatment by dialysis or transplantResponsible Observer: MORRIS LOUISE (MHT) (Jing) Thyroid Stim. Horm. 1.08 mIU/L (0.30-5. 00 ) [facility] Work Phone: Comment on above: Note: Responsible Ob food beverage server: MORRIS (MHTremaine LOUISE (1932) Thyroxine, Free 0.97 ng/dL (0.93-1.70 ) [facility] Work Phone: Comment on above: Note: Responsible Ob food beverage server: MORRIS LOUISE (MHT) (Jing) WBC Morphology NOT REPORTED [facility] Work Phone: Hematologyon 07-31-2018 pH (Bld) Negative Normal (5.0/6.0/6 .5/7.0/7.5 /8.0/8.5) [facility] Work Phone: Laboratory - Chemistry and C hemistry - challengeOrdered By: Karla Clark on 07-31-2018 Bilirubin [Mass/Vol] Negative Normal (Neg/Sm all /Moderate/ Large) [facility] Work Phone: Glucose [Mass/Vol] Negative Normal (NEG/100/ 2 50/500/100 or more) [facility] Work Phone: Ketones Ql (U) Negative Normal (Neg/Small /Moderate/ Large) [facility] Work Phone: pH (Bld) Negative Normal (5.0/6.0/6 .5/7.0/7.5 /8.0/8.5) [facility] Work Phone: Protein [Mass/Vol] Negative Normal (Neg/Trac e /30/100/30 or more) [facility] Work Phone: Urobilinogen (U) [Mass/Vol] Negative Normal (t) [facility] Work Phone: Specific gravity (U) [Rel density] 1.000 Normal (1.000/1.0 05/1.101/1 .015/1.020 /1.025/1.0 30) [facility] Work Phone: Laboratory - UrinalysisOrder ed By: Karla Clark on 07-31-2018 Nitrite Ql (U) Negative Normal (Neg/Pos) [facility] Work Phone: Metabolic Panelon 07-31-2018 Bilirubin [Mass/Vol] Negative Normal (Neg/Sm all /Moderate/ Large) [facility] Work Phone: Glucose [Mass/Vol] Negative Normal (NEG/100/ 2 50/500/100 or more) [facility] Work Phone: Protein [Mass/Vol] Negative Normal (Neg/Trac e /30/100/30 or more) [facility] Work Phone: No Panel InformationOrdered By: Karla Clark on 07-31-2018 Blood Negative Normal (Neg/NH-Tr pedro/NH-Mod erate/H-Tr pedro/H-smal l/H-Modera t) [facility] Work Phone: All Values Normal abnormal Abnormal (NORMAL) [facility] Work Phone: Leukocyates trace Abnormal (Neg/Trace /Small/Mod erate/Larg e) [facility] Work Phone: Otheron 07-31-2018 Blood Negative Normal (Neg/NH-Tr pedro/NH-Mod erate/H-Tr pedro/H-smal l/H-Modera t) [facility] Work Phone: Nitrite Ql (U) Negative Normal (Neg/Pos) [facility] Work Phone: Urobilinogen Qn (U) Negative Normal (t) [facility] Work Phone: Urinalysison 07-31-2018 Ketones Ql (U) Negative Normal (Neg/Small /Moderate/ Large) [facility] Work Phone: [facility] 09-26-2017 Cholesterol mass conc 195 mg/dL Invalid Interpretation Code <200 [facility] Cholesterol mass conc 195 mg/dL Invalid Interpretation Code <200 [facility] Hematologyon 09-26-2017 Basophils Auto #/vol (Bld) 0.070 10*3/uL Invalid Interpretation Code 0.00-0.20 [facility] Basophils/100 WBC Auto (Bld) 1 % Invalid Interpretation Code 0-2 [facility] Eosinophils Auto #/vol (Bld) 2 10*3/uL Invalid Interpretation Code 1-4 [facility] Eosinophils Auto #/vol (Bld) 0.140 10*3/uL Invalid Interpretation Code 0.00-0.44 [facility] Erythrocyte distribution width Auto Ratio (RBC) 13.2 % Invalid Interpretation Code 11.8-14.4 [facility] Hematocrit Auto Volume Fraction (Bld) 44.2 % Invalid Interpretation Code 36.3-47.1 [facility] Hemoglobin mass conc (Bld) 13.5 g/dL Invalid Interpretation Code 11.9-15.1 [facility] Lymphocytes Auto #/vol (Bld) 31 10*3/uL Invalid Interpretation Code 24-43 [facility] Lymphocytes Auto #/vol (Bld) 2.240 10*3/uL Invalid Interpretation Code 1.10-3.70 [facility] MCH Auto Entitic mass (RBC) 31.0 pg Invalid Interpretation Code 25.2-33.5 [facility] MCHC Auto mass conc (RBC) 30.5 g/dL Invalid Interpretation Code 28.4-34.8 [facility] MCV Auto Entitic volume (RBC) 101.4 fL Invalid Interpretation Code 82.6-102.9 [facility] Monocytes Auto #/vol (Bld) 9 10*3/uL Invalid Interpretation Code 3-12 [facility] Monocytes Auto #/vol (Bld) 0.640 10*3/uL Invalid Interpretation Code 0.10-1.20 [facility] Neutrophils Auto #/vol (Bld) 4.10 10*3/uL Invalid Interpretation Code 1.50-8.10 [facility] Platelet mean volume Auto Entitic volume (Bld) 11.7 fL Invalid Interpretation Code 8.1-13.5 [facility] RBC Auto #/vol (Bld) 4.36 10*6/uL Invalid Interpretation Code 3.95-5.11 [facility] WBC Auto #/vol (Bld) 7.2 10*3/uL Invalid Interpretation Code 3.5-11.3 [facility] Basophils Auto #/vol (Bld) 0.070 10*3/uL Invalid Interpretation Code 0.00-0.20 [facility] Basophils/100 WBC (Bld) 1 % 0[facility] Basophils/100 WBC Auto (Bld) 1 % Invalid Interpretation Code 0-2 [facility] [employer] Eosinophils 0.14 10*3/uL Invalid Interpretation Code 0.00-0.44 [facility] [employer] Eosinophils 2 10*3/uL Invalid Interpretation Code 1-4 [facility] Eosinophils #/vol (Bld) 0.14 10*3/uL 0.00-0.44 [facility] Eosinophils #/vol (Bld) 2 10*3/uL 1-4 [facility] Eosinophils Auto #/vol (Bld) 0.140 10*3/uL Invalid Interpretation Code 0.00-0.44 [facility] Erythrocyte distribution width Auto Ratio (RBC) 13.2 % Invalid Interpretation Code 11.8-14.4 [facility] Erythrocytes (RBC) 4.36 10*6/uL Invalid Interpretation Code 3.95-5.11 [facility] Erythrocytes (RBC) NOT REPORTED Invalid Interpretation Code [facility] Erythrocytes (RBC) 0.0 10*6/uL Invalid Interpretation Code 0.0 [facility] Hematocrit (HCT) 44.2 % Invalid Interpretation Code 36.3-47.1 [facility] Hematocrit Volume Fraction (Bld) 44.2 % 36.3-47.1 [facility] Hemoglobin mass conc (Bld) 13.5 g/dL Invalid Interpretation Code 11.9-15.1 [facility] Lymphocytes 2.24 10*3/uL Invalid Interpretation Code 1.10-3.70 [facility] Lymphocytes 31 10*3/uL Invalid Interpretation Code 24-43 [facility] Lymphocytes #/vol (Bld) 31 10*3/uL 24-[facility] Lymphocytes #/vol (Bld) 2.24 10*3/uL 1.10-3.70 [facility] Lymphocytes Auto #/vol (Bld) 2.240 10*3/uL Invalid Interpretation Code 1.10-3.70 [facility] MCH 31.0 pg Invalid Interpretation Code 25.2-33.5 [facility] MCH Entitic mass (RBC) 31.0 pg 25.2-33.5 [facility] MCHC mass conc (RBC) 30.5 g/dL Invalid Interpretation Code 28.4-34.8 [facility] MCV 101.4 fL Invalid Interpretation Code 82.6-102.9 [facility] MCV Entitic volume (RBC) 101.4 fL 82.6-102.9 [facility] Monocytes 0.64 10*3/uL Invalid Interpretation Code 0.10-1.20 [facility] Monocytes 9 10*3/uL Invalid Interpretation Code 3-12 [facility] Monocytes #/vol (Bld) 0.64 10*3/uL 0.10-1.20 [facility] Monocytes #/vol (Bld) 9 10*3/uL 3-12 [facility] Monocytes Auto #/vol (Bld) 0.640 10*3/uL Invalid Interpretation Code 0.10-1.20 [facility] Neutrophils Auto #/vol (Bld) 4.10 10*3/uL Invalid Interpretation Code 1.50-8.10 [facility] Platelet mean volume (PMV) 11.7 fL Invalid Interpretation Code 8.1-13.5 [facility] RBC #/vol (Bld) 4.36 10*6/uL 3.95-5.11 [facility] WBC #/vol (Bld) 7.2 10*3/uL 3.5-11.3 [facility] WBC (Leukocytes) 7.2 10*3/uL Invalid Interpretation Code 3.5-11.3 [facility] Metabolic Panelon 09-26-2017 Albumin mass conc 4.1 g/dL Invalid Interpretation Code 3.5-5.2 [facility] ALT enzyme act/vol 28 U/L Invalid Interpretation Code 5-33 [facility] Anion gap 3 molar conc 9 mmol/L Invalid Interpretation Code 9-17 [facility] AST enzyme act/vol 19 U/L Invalid Interpretation Code <32 [facility] Bilirubin mass conc 0.250 mg/dL Invalid Interpretation Code 0.3-1.2 [facility] Calcium mass conc 10.80 mg/dL Invalid Interpretation Code 8.6-10.4 [facility] Chloride molar conc 103 mmol/L Invalid Interpretation Code 98-107 [facility] CO2 molar conc 27 mmol/L Invalid Interpretation Code 20-31 [facility] Creatinine mass conc 0.83 mg/dL Invalid Interpretation Code 0.50-0.90 [facility] Glucose mass conc 95 mg/dL Invalid Interpretation Code 70-99 [facility] Potassium molar conc 4.8 mmol/L Invalid Interpretation Code 3.7-5.3 [facility] Protein mass conc 7.0 g/dL Invalid Interpretation Code 6.4-8.3 [facility] Sodium molar conc 139 mmol/L Invalid Interpretation Code 135-144 [facility] Urea nitrogen mass conc 22.0 mg/dL Invalid Interpretation Code 8-23 [facility] Albumin mass conc 4.1 g/dL Invalid Interpretation Code 3.5-5.2 [facility] ALT enzyme act/vol 28 U/L Invalid Interpretation Code 5-33 [facility] Anion gap 9 mmol/L Invalid Interpretation Code 9-17 [facility] Anion gap molar conc 9 mmol/L 9-17 [facility] AST enzyme act/vol 19 U/L Invalid Interpretation Code <32 [facility] Bilirubin mass conc 0.25 mg/dL Invalid Interpretation Code 0.3-1.2 [facility] Bilirubin mass conc 0.250 mg/dL Invalid Interpretation Code 0.3-1.2 [facility] BUN (urea nitrogen) 22 mg/dL Invalid Interpretation Code 8-23 [facility] Calcium mass conc 10.8 mg/dL Invalid Interpretation Code 8.6-10.4 [facility] Calcium mass conc 10.80 mg/dL Invalid Interpretation Code 8.6-10.4 [facility] Chloride molar conc 103 mmol/L Invalid Interpretation Code 98-107 [facility] [employer] CO2 27 mmol/L Invalid Interpretation Code 20-31 [facility] Creatinine mass conc 0.83 mg/dL Invalid Interpretation Code 0.50-0.90 [facility] [employer] eGFR (non-black) mL/min/{1.73_m2} Invalid Interpretation Code >60 [facility] Glucose mass conc 95 mg/dL Invalid Interpretation Code 70-99 [facility] [employer] Potassium molar conc 4.8 mmol/L Invalid Interpretation Code 3.7-5.3 [facility] Protein mass conc 7.0 g/dL Invalid Interpretation Code 6.4-8.3 [facility] Sodium molar conc 139 mmol/L Invalid Interpretation Code 135-144 [facility] Urea nitrogen mass conc 22.0 mg/dL Invalid Interpretation Code 8-23 [facility] Urea nitrogen mass conc 22 mg/dL [facility] Cholesterol.total/Judy sterol in HDL mass ratio 3.7 {ratio} Invalid Interpretation Code <5 [facility] Immature granulocytes #/vol (Bld) 0 10*3/uL Invalid Interpretation Code 0 [employer] [facility] Urea nitrogen/Creatinine mass ratio (Bld) 27 Invalid Interpretation Code 9-20 [facility] [employer] [facility] NOT REPORTED Invalid Interpretation Code [employer] [facility] 205 Invalid Interpretation Code <150 [facility] 101 Invalid Interpretation Code 0-130 [employer] [facility] 53 Invalid Interpretation Code >40 [employer] [facility] 57 Invalid Interpretation Code 36-65 [employer] [facility] [employer] 0.0 Invalid Interpretation Code 0.0 [employer] [facility] 0.96 Invalid Interpretation Code 0.93-1.70 [employer] [facility] 226 Invalid Interpretation Code 138-453 [employer] [facility] >60 Invalid Interpretation Code >60 [employer] [facility] [employer] <0.03 Invalid Interpretation Code 0.00-0.30 [employer] [facility] [employer] 1.4 Invalid Interpretation Code 1.0-2.5 [employer] [facility] 140 Invalid Interpretation Code 35-104 [employer] [facility] 1.06 Invalid Interpretation Code 0.30-5.00 [employer] [facility] Cholesterol.total/Judy sterol in HDL mass ratio 3.7 {ratio} Invalid Interpretation Code <5 [employer] [facility] Erythrocyte distribution width Ratio (RBC) 13.2 % 11.8-14.4 [employer] [facility] Granulocytes/100 WBC (Bld) % Invalid Interpretation Code 0.00-0.30 [employer] [facility] Immature granulocytes #/vol (Bld) 0 10*3/uL Invalid Interpretation Code 0 [facility] MCHC mass conc (RBC) 30.5 g/dL 28.4-34.8 [facility] Platelet mean volume Entitic volume (Bld) 11.7 fL 8.1-13.5 [facility] Urea nitrogen/Creatinine mass ratio (Bld) 27 Invalid Interpretation Code 9-20 [facility] NOT REPORTED Invalid Interpretation Code [facility] 4.10 Invalid Interpretation Code 1.50-8.10 [facility] 205 Invalid Interpretation Code <150 [facility] 53 Invalid Interpretation Code >40 [facility] 1.06 Invalid Interpretation Code 0.30-5.00 [facility] 57 Invalid Interpretation Code 36-65 [facility] 0.96 Invalid Interpretation Code 0.93-1.70 [facility] 27 Invalid Interpretation Code 9-20 [facility] 226 Invalid Interpretation Code 138-453 [facility] 0.07 Invalid Interpretation Code 0.00-0.20 [facility] 1.4 Invalid Interpretation Code 1.0-2.5 [facility] 140 Invalid Interpretation Code 35-104 [facility] 101 Invalid Interpretation Code 0-130 [facility] 7.0 Invalid Interpretation Code 6.4-8.3 [facility] 28 Invalid Interpretation Code 5-33 [facility] 19 Invalid Interpretation Code <32 [facility] 0.0 Invalid Interpretation Code 0.0 [facility] >60 Invalid Interpretation Code >60 [facility] <0.03 Invalid Interpretation Code 0.00-0.30 [facility] Otheron 09-17-2017 S. pyogenes Ag IA Ql (Unsp spec) Negative Invalid Interpretation Code [facility] S. pyogenes Ag IA Ql (Unsp spec) Negative Invalid Interpretation Code [facility] Otheron 05-14-2017 2 Invalid Interpretation Code [facility] 2 Invalid Interpretation Code [facility] Metabolic Panelon 04-18-2017 Hemoglobin A1c/Hemoglobin.total mass fraction (Bld) 5.0 % Invalid Interpretation Code < 7 [facility] Hemoglobin A1c/Hemoglobin.total mass fraction (Bld) 5.0 % Invalid Interpretation Code < 7 [facility] Otheron 01-01-2017 Negative Invalid Interpretation Code [facility] 0=No Invalid Interpretation Code [facility] 4 Invalid Interpretation Code [facility] Risk Level 2= 4-6 Invalid Interpretation Code [facility] 0= N/A Invalid Interpretation Code [facility] 0-N/A Invalid Interpretation Code [facility] 1=Controlled Invalid Interpretation Code [facility] 1=Yes Invalid Interpretation Code [facility] 0 Invalid Interpretation Code [facility] Negative Invalid Interpretation Code [facility] 0 Invalid Interpretation Code [facility] 0=No Invalid Interpretation Code [facility] 4 Invalid Interpretation Code [facility] Risk Level 2= 4-6 Invalid Interpretation Code [facility] 0= N/A Invalid Interpretation Code [facility] 0-N/A Invalid Interpretation Code [facility] 1=Controlled Invalid Interpretation Code [facility] 1=Yes Invalid Interpretation Code [facility] Otheron 12-06-2016 Negative Invalid Interpretation Code [facility] Negative Invalid Interpretation Code [facility] Otheron 11-06-2016 Urinalysis specialist review [employer] (Unsp spec) mod leuk, wnl Invalid Interpretation Code [facility] Urinalysis specialist review [employer] (Unsp spec) mod leuk, wnl Invalid Interpretation Code [facility] Otheron 08-21-2016 Not ready Invalid Interpretation Code [facility] No Invalid Interpretation Code [facility] Contemplation Invalid Interpretation Code [facility] Benefits of quitting Invalid Interpretation Code [facility] 10.0 Count Invalid Interpretation Code [facility] 7 Invalid Interpretation Code [facility] Charly Invalid Interpretation Code [facility] Current Invalid Interpretation Code [facility] Not ready Invalid Interpretation Code [facility] No Invalid Interpretation Code [facility] Contemplation Invalid Interpretation Code [facility] Benefits of quitting Invalid Interpretation Code [facility] 10.0 Count Invalid Interpretation Code [facility] 7 Invalid Interpretation Code [facility] Charly Invalid Interpretation Code [facility] Current Invalid Interpretation Code [facility] Metabolic Panelon 06-12-2016 Protein mass conc Provide self-help materials Invalid Interpretation Code [facility] Protein Provide self-help materials Invalid Interpretation Code [facility] Otheron 06-12-2016 Yes Invalid Interpretation Code [facility] Contemplation Invalid Interpretation Code [facility] Strong advice to quit Invalid Interpretation Code [facility] Woman Invalid Interpretation Code [facility] 10.0 Count Invalid Interpretation Code [facility] 7 Invalid Interpretation Code [facility] charly segundo Invalid Interpretation Code [facility] Current Invalid Interpretation Code [facility] Provide self-help materials Invalid Interpretation Code [facility] Yes Invalid Interpretation Code [facility] Contemplation Invalid Interpretation Code [facility] Strong advice to quit Invalid Interpretation Code [facility] Woman Invalid Interpretation Code [facility] 10.0 Count Invalid Interpretation Code [facility] 7 Invalid Interpretation Code [facility] charly segundo Invalid Interpretation Code [facility] Current Invalid Interpretation Code [facility] Otheron 04-10-2016 Pre-contemplation Invalid Interpretation Code [facility] Not Ready Invalid Interpretation Code [facility] Benefits of quitting Invalid Interpretation Code [facility] No Invalid Interpretation Code [facility] Woman Invalid Interpretation Code [facility] 10.0 Count Invalid Interpretation Code [facility] 7 Invalid Interpretation Code [facility] Current Invalid Interpretation Code [facility] Charly Invalid Interpretation Code [facility] Not Ready Invalid Interpretation Code [facility] Pre-contemplation Invalid Interpretation Code [facility] No Invalid Interpretation Code [facility] Benefits of quitting Invalid Interpretation Code [facility] Woman Invalid Interpretation Code [facility] 10.0 Count Invalid Interpretation Code [facility] 7 Invalid Interpretation Code [facility] Current Invalid Interpretation Code [facility] Charly Invalid Interpretation Code [facility] Otheron 03-20-2016 10.0 Count Invalid Interpretation Code [facility] Woman Invalid Interpretation Code [facility] Not Ready Invalid Interpretation Code [facility] No Invalid Interpretation Code [facility] Contemplation Invalid Interpretation Code [facility] Current Invalid Interpretation Code [facility] Charly Felton Invalid Interpretation Code [facility] 7 Invalid Interpretation Code [facility] Benefits of quitting Invalid Interpretation Code [facility] 10.0 Count Invalid Interpretation Code [facility] Woman Invalid Interpretation Code [facility] Not Ready Invalid Interpretation Code [facility] No Invalid Interpretation Code [facility] Contemplation Invalid Interpretation Code [facility] Current Invalid Interpretation Code [facility] Charly Felton Invalid Interpretation Code [facility] 7 Invalid Interpretation Code [facility] Benefits of quitting Invalid Interpretation Code [facility] Otheron 12-08-2015 Urinalysis specialist review [employer] (Unsp spec) WNL Lg Justina Invalid Interpretation Code [facility] Urinalysis specialist review [employer] (Unsp spec) WNL Lg Justina Invalid Interpretation Code [facility] Otheron 09-09-2015 Negative Invalid Interpretation Code NEGATIVE [facility] Negative Invalid Interpretation Code NEGATIVE [facility] Otheron 09-08-2015 290 Invalid Interpretation Code [facility] 280 Invalid Interpretation Code [facility] Negative Invalid Interpretation Code [facility] 290 Invalid Interpretation Code [facility] 280 Invalid Interpretation Code [facility] Negative Invalid Interpretation Code [facility] Vital Signs Date Time Vital Sign Value Performing Clinician Facility 03-28-2023 07:30-0400 Body temperature 97.9 [degF] RODNEY Clark Work Phone: [facility] 03-28-2023 07:30-0400 Diastolic blood pressure 71 mm[Hg] FIRST COAT OPERATOR Karla Amber Work Phone: [facility] 03-28-2023 07:30-0400 Heart rate 95 /min FIRST COAT OPERATOR Karla Amber Work Phone: [facility] 03-28-2023 07:30-0400 Respiratory rate 18 /min FIRST COAT OPERATOR Karla Clark Work Phone: [facility] 03-28-2023 07:30-0400 SaO2% (BldA) [Mass fraction] 95 % FIRST COAT OPERATORStacy Clark Work Phone: [facility] 03-28-2023 07:30-0400 Systolic blood pressure 121 mm[Hg] FIRST COAT OPERATOR Karla Clark Work Phone: [facility] 03-27-2023 11:00-0400 Body height 160.02 cm FIRST COAT OPERATOR Karla Clark Work Phone: [facility] 03-26-2023 00:59-0400 Body weight 63.5 kg FIRST COAT OPERATOR Karla Clark Work Phone: [facility] 03-15-2023 07:30-0400 Body temperature 97.9 [degF] FIRST COAT OPERATOR Karlajulius Floresen Work Phone: [facility] 03-15-2023 07:30-0400 Diastolic blood pressure 72 mm[Hg] FIRST COAT OPERATOR Karlajulius Floresen Work Phone: [facility] 03-15-2023 07:30-0400 Heart rate 68 /min FIRST COAT OPERATOR Karlajulius Clark Work Phone: [facility] 03-15-2023 07:30-0400 Respiratory rate 16 /min FIRST COAT OPERATOR Karla Clark Work Phone: [facility] 03-15-2023 07:30-0400 SaO2% (BldA) [Mass fraction] 100 % FIRST COAT OPERATOR Karla Clark Work Phone: [facility] 03-15-2023 07:30-0400 Systolic blood pressure 136 mm[Hg] FIRST COAT OPERATOR Karla Clark Work Phone: [facility] 03-12-2023 14:52-0400 Body height 160.02 cm FIRST COAT OPERATOR Karla Clark Work Phone: [facility] 03-12-2023 00:34-0400 Body weight 63.5 kg FIRST COAT OPERATOR Karla Clark Work Phone: [facility] 02-28-2023 09:35-0400 Body height 162.56 cm Karla Clark CNP Work Phone: [facility] Work Phone: 02-28-2023 09:35-0400 Body mass index (BMI) [Ratio] 24 kg/m2 Karla Clark CNP Work Phone: [facility] Work Phone: 02-28-2023 09:35-0400 Body surface area Derived from formula 1.7 m2 Karla Clark CNP Work Phone: [facility] Work Phone: 02-28-2023 09:35-0400 Body weight 63.41 kg Karla Clark CNP Work Phone: [facility] Work Phone: 02-28-2023 09:35-0400 Diastolic blood pressure 76 mm[Hg] Karla Clark CNP Work Phone: [facility] Work Phone: 02-28-2023 09:35-0400 Heart rate 83 /min Karla Clark CNP Work Phone: [facility] Work Phone: 02-28-2023 09:35-0400 SaO2% (BldA) [Mass fraction] 94 % Karla Clark CNP Work Phone: [facility] Work Phone: 02-28-2023 09:35-0400 Systolic blood pressure 111 mm[Hg] Karla Clark CNP Work Phone: [facility] Work Phone: 12-12-2022 13:45-0400 Body height Emory Adame Other [employer] Other 12-12-2022 13:45-0400 Body mass index (BMI) [Ratio] 25.6 kg/m2 Emory Adame Other [employer] Other 12-12-2022 13:45-0400 Body weight 63.5 kg Emory Adame Other [employer] Other 11-19-2022 09:15-0400 Body height 162.56 cm Karla Clark CNP Work Phone: [facility] Work Phone: 11-19-2022 09:15-0400 Body mass index (BMI) [Ratio] 23.6 kg/m2 Karla Clark CNP Work Phone: [facility] Work Phone: 11-19-2022 09:15-0400 Body surface area Derived from formula 1.7 m2 Karla Clark CNP Work Phone: [facility] Work Phone: 11-19-2022 09:15-0400 Body temperature 97.6 [degF] Karla Clark CNP Work Phone: [facility] Work Phone: 11-19-2022 09:15-0400 Body weight 62.32 kg Karla Clark CNP Work Phone: [facility] Work Phone: 11-19-2022 09:15-0400 Diastolic blood pressure 60 mm[Hg] Karla Clark CNP Work Phone: [facility] Work Phone: 11-19-2022 09:15-0400 Heart rate 94 /min Karla Clark CNP Work Phone: [facility] Work Phone: 11-19-2022 09:15-0400 SaO2% (BldA) [Mass fraction] 97 % Karla Clark CNP Work Phone: [facility] Work Phone: 11-19-2022 09:15-0400 Systolic blood pressure 133 mm[Hg] Karla Clark CNP Work Phone: [facility] Work Phone: 09-18-2022 13:57-0400 Body height 162.56 cm Karla Clark CNP Work Phone: [facility] Work Phone: 09-18-2022 13:57-0400 Body mass index (BMI) [Ratio] 24.9 kg/m2 Karla Clark CNP Work Phone: [facility] Work Phone: 09-18-2022 13:57-0400 Body surface area Derived from formula 1.7 m2 Karla Clark CNP Work Phone: [facility] Work Phone: 09-18-2022 13:57-0400 Body temperature 97.6 [degF] Karla Clark CNP Work Phone: [facility] Work Phone: 09-18-2022 13:57-0400 Body weight 65.68 kg Karla Clark CNP Work Phone: [facility] Work Phone: 09-18-2022 13:57-0400 Diastolic blood pressure 74 mm[Hg] Karla 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: [facility] Work Phone: 09-18-2022 13:57-0400 Heart rate 80 /min Karla 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: [facility] Work Phone: 09-18-2022 13:57-0400 SaO2% (BldA) [Mass fraction] 98 % Karla Clark CNP Work Phone: [facility] Work Phone: 09-18-2022 13:57-0400 Systolic blood pressure 142 mm[Hg] Karla Clark CNP Work Phone: [facility] Work Phone: 09-14-2022 15:10-0400 Body temperature 98.6 [degF] PHYSICIAN NO [facility] 09-14-2022 15:10-0400 Diastolic blood pressure 75 mm[Hg] PHYSICIAN [facility] 09-14-2022 15:10-0400 Heart rate 81 /min PHYSICIAN NO [facility] 09-14-2022 15:10-0400 Respiratory rate 20 /min PHYSICIAN NO [facility] 09-14-2022 15:10-0400 SaO2% (BldA) [Mass fraction] 95 % PHYSICIAN NO [facility] 09-14-2022 15:10-0400 Systolic blood pressure 144 mm[Hg] PHYSICIAN NO [facility] 09-14-2022 06:43-0400 Body weight 72.6 kg PHYSICIAN NO [facility] 09-14-2022 00:00-0400 Inhaled oxygen flow rate 1 L/min PHYSICIAN NO [facility] 09-13-2022 08:33-0400 Body height 157.48 cm PHYSICIAN NO [facility] 09-13-2022 08:33-0400 Body mass index (BMI) [Ratio] 26.2 kg/m2 PHYSICIAN NO [facility] 09-10-2022 09:45-0400 Body height Emory Adame Other [facility] [employer] Other 09-10-2022 09:45-0400 Body mass index (BMI) [Ratio] 26.15 kg/m2 Emory Adame Other [employer] [facility] [employer] Other 09-10-2022 09:45-0400 Body weight 64.86 kg Emory Adame Other [employer] [facility] [employer] Other 08-27-2022 08:26-0400 Body height 162.56 cm Karla Clark CNP Work Phone: [facility] Work Phone: 08-27-2022 08:26-0400 Body mass index (BMI) [Ratio] 24.6 kg/m2 Karla Clark CNP Work Phone: [facility] Work Phone: 08-27-2022 08:26-0400 Body surface area Derived from formula 1.7 m2 Karla Clark CNP Work Phone: [facility] Work Phone: 08-27-2022 08:26-0400 Body temperature 97 [degF] Karla Clark CNP Work Phone: [facility] Work Phone: 08-27-2022 08:26-0400 Body weight 65.14 kg Karla Clark CNP Work Phone: [facility] Work Phone: 08-27-2022 08:26-0400 Diastolic blood pressure 73 mm[Hg] Karla Clark CNP Work Phone: [facility] Work Phone: 08-27-2022 08:26-0400 Heart rate 66 /min Karla Clark CNP Work Phone: [facility] Work Phone: 08-27-2022 08:26-0400 SaO2% (BldA) [Mass fraction] 96 % Karla Clark CNP Work Phone: [facility] Work Phone: 08-27-2022 08:26-0400 Systolic blood pressure 115 mm[Hg] Karla Clark CNP Work Phone: [facility] Work Phone: 06-18-2022 11:23-0500 Body height 162.56 cm Karla Clark CNP Work Phone: [facility] Work Phone: 06-18-2022 11:23-0500 Body mass index (BMI) [Ratio] 24.9 kg/m2 Karla Clark CNP Work Phone: [facility] Work Phone: 06-18-2022 11:23-0500 Body surface area Derived from formula 1.7 m2 Karla Clark CNP Work Phone: [facility] Work Phone: 06-18-2022 11:23-0500 Body temperature 97.6 [degF] Karla Clark CNP Work Phone: [facility] Work Phone: 06-18-2022 11:23-0500 Body weight 65.86 kg Karla Clark CNP Work Phone: [facility] Work Phone: 01-16-2023 11:23-0500 Diastolic blood pressure 78 mm[Hg] Karla Clark CNP Work Phone: [facility] Work Phone: 06-18-2022 11:23-0500 Heart rate 62 /min Karla Clark CNP Work Phone: [facility] Work Phone: 06-18-2022 11:23-0500 SaO2% (BldA) [Mass fraction] 98 % Karla Clark CNP Work Phone: [facility] Work Phone: 06-18-2022 11:23-0500 Systolic blood pressure 125 mm[Hg] Karla Clark CNP Work Phone: [facility] Work Phone: 03-20-2022 13:56-0400 Body height 162.56 cm Karla Clark CNP Work Phone: [facility] Work Phone: 03-20-2022 13:56-0400 Body mass index (BMI) [Ratio] 24.4 kg/m2 Karla Clark CNP Work Phone: [facility] Work Phone: 03-20-2022 13:56-0400 Body surface area Derived from formula 1.7 m2 Karla Clark CNP Work Phone: [facility] Work Phone: 03-20-2022 13:56-0400 Body temperature 99.5 [degF] Karla Clark CNP Work Phone: [facility] Work Phone: 03-20-2022 13:56-0400 Body weight 64.41 kg Karla Clark CNP Work Phone: [facility] Work Phone: 03-20-2022 13:56-0400 Diastolic blood pressure 82 mm[Hg] Karla Clark CNP Work Phone: [facility] Work Phone: 03-20-2022 13:56-0400 Heart rate 69 /min Karla Clark CNP Work Phone: [facility] Work Phone: 03-20-2022 13:56-0400 Heart Rate Rhythm 1 1 Karla Clark CNP Work Phone: [facility] Work Phone: 03-20-2022 13:56-0400 SaO2% (BldA) [Mass fraction] 98 % Karla Clark CNP Work Phone: [facility] Work Phone: 03-20-2022 13:56-0400 Systolic blood pressure 126 mm[Hg] Karla Clark CNP Work Phone: [facility] Work Phone: 12-20-2021 14:07-0400 Body height 162.56 cm Karla Clark CNP Work Phone: [facility] Work Phone: 12-20-2021 14:07-0400 Body mass index (BMI) [Ratio] 24.5 kg/m2 Karla Clark CNP Work Phone: [facility] Work Phone: 12-20-2021 14:07-0400 Body surface area Derived from formula 1.7 m2 Karla Clark CNP Work Phone: [facility] Work Phone: 12-20-2021 14:07-0400 Body temperature 97.6 [degF] Karla Clark CNP Work Phone: [facility] Work Phone: 12-20-2021 14:07-0400 Body weight 64.86 kg Karla Clark CNP Work Phone: [facility] Work Phone: 12-20-2021 14:07-0400 Diastolic blood pressure 80 mm[Hg] Karla Clark CNP Work Phone: [facility] Work Phone: 12-20-2021 14:07-0400 Heart rate 92 /min Karla Clark CNP Work Phone: [facility] Work Phone: 12-20-2021 14:07-0400 SaO2% (BldA) [Mass fraction] 98 % Karla Clark CNP Work Phone: [facility] Work Phone: 12-20-2021 14:07-0400 Systolic blood pressure 130 mm[Hg] Karla Clark CNP Work Phone: [facility] Work Phone: 11-03-2021 10:00-0400 Body height 162.56 cm Karla Clark CNP Work Phone: [facility] Work Phone: 11-03-2021 10:00-0400 Body mass index (BMI) [Ratio] 24.3 kg/m2 Karla Clark CNP Work Phone: [facility] Work Phone: 11-03-2021 10:00-0400 Body surface area Derived from formula 1.69 m2 Karla Clark CNP Work Phone: [facility] Work Phone: 11-03-2021 10:00-0400 Body surface area Derived from formula 1.7 m2 Karla Clark CNP Work Phone: [facility] Work Phone: 11-03-2021 10:00-0400 Body temperature 97.6 [degF] Karla Clark CNP Work Phone: [facility] Work Phone: 11-03-2021 10:00-0400 Body weight 64.14 kg Karla Clark CNP Work Phone: [facility] Work Phone: 11-03-2021 10:00-0400 Diastolic blood pressure 80 mm[Hg] Karla Clark CNP Work Phone: [facility] Work Phone: 11-03-2021 10:00-0400 Heart rate 70 /min Karla Clark CNP Work Phone: [facility] Work Phone: 11-03-2021 10:00-0400 SaO2% (BldA) [Mass fraction] 98 % Karla Clark CNP Work Phone: [facility] Work Phone: 11-03-2021 10:00-0400 Systolic blood pressure 126 mm[Hg] Karla Clark CNP Work Phone: [facility] Work Phone: 07-28-2021 13:20-0500 Body height 162.56 cm Karla Clark CNP Work Phone: [facility] Work Phone: 07-28-2021 13:20-0500 Body mass index (BMI) [Ratio] 24.4 kg/m2 Karla Clark CNP Work Phone: [facility] Work Phone: 07-28-2021 13:20-0500 Body surface area Derived from formula 1.69 m2 Karla Clark CNP Work Phone: [facility] Work Phone: 07-28-2021 13:20-0500 Body surface area Derived from formula 1.7 m2 Karla Clark CNP Work Phone: [facility] Work Phone: 07-28-2021 13:20-0500 Body temperature 98.6 [degF] Karla Clark CNP Work Phone: [facility] Work Phone: 07-28-2021 13:20-0500 Body weight 64.59 kg Karla Clark CNP Work Phone: [facility] Work Phone: 07-28-2021 13:20-0500 Diastolic blood pressure 82 mm[Hg] Karla Clark CNP Work Phone: [facility] Work Phone: 07-28-2021 13:20-0500 Heart rate 80 /min Karla Clark CNP Work Phone: [facility] Work Phone: 07-28-2021 13:20-0500 Respiratory rate 18 /min Karla Clark CNP Work Phone: [facility] Work Phone: 07-28-2021 13:20-0500 SaO2% (BldA) [Mass fraction] 98 % Karla Clark CNP Work Phone: [facility] Work Phone: 07-28-2021 13:20-0500 Systolic blood pressure 134 mm[Hg] Karla Clark CNP Work Phone: [facility] Work Phone: 05-08-2021 10:04-0500 Body height 162.56 cm Karla Clark CNP Work Phone: [facility] Work Phone: 05-08-2021 10:04-0500 Body mass index (BMI) [Ratio] 24.2 kg/m2 Karla Clark CNP Work Phone: [facility] Work Phone: 05-08-2021 10:04-0500 Body surface area Derived from formula 1.69 m2 Karla Clark CNP Work Phone: [facility] Work Phone: 05-08-2021 10:04-0500 Body surface area Derived from formula 1.7 m2 Karla Clark CNP Work Phone: [facility] Work Phone: 05-08-2021 10:04-0500 Body temperature 99.1 [degF] Karla Clark CNP Work Phone: [facility] Work Phone: 05-08-2021 10:04-0500 Body weight 64.05 kg Karla Clark CNP Work Phone: [facility] Work Phone: 05-08-2021 10:04-0500 Diastolic blood pressure 78 mm[Hg] Karla Clark CNP Work Phone: [facility] Work Phone: 05-08-2021 10:04-0500 Heart rate 69 /min Karla Clark CNP Work Phone: [facility] Work Phone: 05-08-2021 10:04-0500 SaO2% (BldA) [Mass fraction] 99 % Karla Clark CNP Work Phone: [facility] Work Phone: 05-08-2021 10:04-0500 Systolic blood pressure 132 mm[Hg] Karla Clark [facility] Work Phone: [facility] Work Phone: 06-17-2020 09:49-0500 BMI (Body Mass Index) 24.9 kg/m2 [facility] Work Phone: 06-17-2020 09:49-0500 Body Temperature 97.3 [degF] [facility] Work Phone: 06-17-2020 09:49-0500 Body weight 65.86 kg [facility] Work Phone: 06-17-2020 09:49-0500 BP Diastolic 70 mm[Hg] [facility] Work Phone: 06-17-2020 09:49-0500 BP Systolic 100 mm[Hg] [facility] Work Phone: 06-17-2020 09:49-0500 BSA (Body Surface Area) 1.71 m2 [facility] Work Phone: 06-17-2020 09:49-0500 Height 162.56 cm [facility] Work Phone: 06-17-2020 09:49-0500 Pulse (Heart Rate) 79 /min [facility] Work Phone: 06-17-2020 09:49-0500 Pulse Oximetry 97 % [facility] Work Phone: 06-17-2020 09:49-0500 Respiratory Rate 18 /min [facility] Work Phone: 06-17-2020 09:49-0500 SaO2% (BldA) [Mass fraction] 97 % [facility] Work Phone: [facility] Work Phone: 06-08-2020 10:39-0500 BP Diastolic 72 mm[Hg] [facility] [place] 06-08-2020 10:39-0500 BP Systolic 137 mm[Hg] [place], [place] 06-08-2020 10:39-0500 Pulse (Heart Rate) 84 /min [place], [place] 06-08-2020 10:39-0500 Pulse Oximetry 98 % [place], [place] 06-08-2020 10:39-0500 Respiratory Rate 12 /min [place], [place] 06-06-2020 13:08-0500 BMI (Body Mass Index) 25 kg/m2 [facility] Work Phone: 06-06-2020 13:08-0500 Body Temperature 96.2 [degF] [facility] Work Phone: 06-06-2020 13:08-0500 Body weight 65.95 kg [facility] Work Phone: 06-06-2020 13:08-0500 BP Diastolic 86 mm[Hg] [facility] Work Phone: 06-06-2020 13:08-0500 BP Systolic 128 mm[Hg] [facility] Work Phone: 06-06-2020 13:08-0500 BSA (Body Surface Area) 1.71 m2 [facility] Work Phone: 06-06-2020 13:08-0500 Height 162.56 cm [facility] Work Phone: 06-06-2020 13:08-0500 Respiratory Rate 18 /min [facility] Work Phone: 05-06-2020 14:04-0500 BMI (Body Mass Index) 25.2 kg/m2 [facility] Work Phone: 05-06-2020 14:04-0500 Body weight 66.68 kg [facility] Work Phone: 05-06-2020 14:04-0500 BP Diastolic 70 mm[Hg] [facility] Work Phone: 05-06-2020 14:04-0500 BP Systolic 116 mm[Hg] [facility] Work Phone: 05-06-2020 14:04-0500 BSA (Body Surface Area) 1.72 m2 [facility] Work Phone: 05-06-2020 14:04-0500 Height 162.56 cm [facility] Work Phone: 05-06-2020 14:04-0500 Pulse (Heart Rate) 72 /min [facility] Work Phone: 05-06-2020 14:04-0500 Pulse Oximetry 96 % [facility] Work Phone: 03-31-2020 14:22-0400 BMI (Body Mass Index) 25.3 kg/m2 [facility] Work Phone: 03-31-2020 14:22-0400 Body Temperature 97.7 [degF] [facility] Work Phone: 03-31-2020 14:22-0400 Body weight 66.95 kg [facility] Work Phone: 03-31-2020 14:22-0400 BP Diastolic 90 mm[Hg] [facility] Work Phone: 03-31-2020 14:22-0400 BP Systolic 142 mm[Hg] [facility] Work Phone: 03-31-2020 14:22-0400 BSA (Body Surface Area) 1.72 m2 [facility] Work Phone: 03-31-2020 14:22-0400 Height 162.56 cm [facility] Work Phone: 03-31-2020 14:22-0400 Pulse (Heart Rate) 97 /min [facility] Work Phone: 03-31-2020 14:22-0400 Pulse Oximetry 97 % [facility] Work Phone: 03-31-2020 14:22-0400 Respiratory Rate 18 /min [facility] Work Phone: 03-14-2020 14:01-0400 BMI (Body Mass Index) 25.2 kg/m2 [facility] Work Phone: 03-14-2020 14:01-0400 Body Temperature 96.3 [degF] [facility] Work Phone: 03-14-2020 14:01-0400 Body weight 66.59 kg [facility] Work Phone: 03-14-2020 14:01-0400 BP Diastolic 86 mm[Hg] [facility] Work Phone: 03-14-2020 14:01-0400 BP Systolic 130 mm[Hg] [facility] Work Phone: 03-14-2020 14:01-0400 BSA (Body Surface Area) 1.72 m2 [facility] Work Phone: 03-14-2020 14:01-0400 Height 162.56 cm [facility] Work Phone: 03-14-2020 14:01-0400 Pulse (Heart Rate) 83 /min [facility] Work Phone: 03-14-2020 14:01-0400 Respiratory Rate 18 /min [facility] Work Phone: 02-26-2020 11:04-0400 BMI (Body Mass Index) 25.8 kg/m2 [facility] Work Phone: 02-26-2020 11:04-0400 Body Temperature 98.1 [degF] [facility] Work Phone: 02-26-2020 11:04-0400 Body weight 65.95 kg [facility] Work Phone: 02-26-2020 11:04-0400 BP Diastolic 90 mm[Hg] [facility] Work Phone: 02-26-2020 11:04-0400 BP Systolic 144 mm[Hg] [facility] Work Phone: 02-26-2020 11:04-0400 BSA (Body Surface Area) 1.69 m2 [facility] Work Phone: 02-26-2020 11:04-0400 Height 160.02 cm [facility] Work Phone: 02-26-2020 11:04-0400 Pulse (Heart Rate) 62 /min [facility] Work Phone: 02-26-2020 11:04-0400 Pulse Oximetry 95 % [facility] Work Phone: 02-26-2020 11:04-0400 Respiratory Rate 18 /min [facility] Work Phone: 11-19-2019 09:03-0400 BMI (Body Mass Index) 27.5 kg/m2 [facility] Work Phone: Comment on above: self 11-19-2019 09:03-0400 Body weight 70.31 kg [facility] Work Phone: Comment on above: self 11-19-2019 09:03-0400 BSA (Body Surface Area) 1.74 m2 [facility] Work Phone: Comment on above: self 11-19-2019 09:03-0400 Height 160.02 cm [facility] Work Phone: Comment on above: self 07-23-2019 14:03-0500 BMI (Body Mass Index) 27 kg/m2 [facility] Work Phone: 07-23-2019 14:03-0500 Body Temperature 99.9 [degF] [facility] Work Phone: 07-23-2019 14:03-0500 Body weight 69.04 kg [facility] Work Phone: 07-23-2019 14:03-0500 BP Diastolic 82 mm[Hg] [facility] Work Phone: 07-23-2019 14:03-0500 BP Systolic 110 mm[Hg] [facility] Work Phone: 07-23-2019 14:03-0500 BSA (Body Surface Area) 1.72 m2 [facility] Work Phone: 07-23-2019 14:03-0500 Height 160.02 cm [facility] Work Phone: 07-23-2019 14:03-0500 Pulse (Heart Rate) 80 /min [facility] Work Phone: 07-23-2019 14:03-0500 Pulse Oximetry 96 % [facility] Work Phone: 07-23-2019 14:03-0500 Respiratory Rate 18 /min [facility] Work Phone: 06-05-2019 13:43-0500 BMI (Body Mass Index) 27.2 kg/m2 [facility] Work Phone: 06-05-2019 13:43-0500 Body weight 69.76 kg [facility] Work Phone: 06-05-2019 13:43-0500 BP Diastolic 80 mm[Hg] [facility] Work Phone: 06-05-2019 13:43-0500 BP Systolic 118 mm[Hg] [facility] Work Phone: 06-05-2019 13:43-0500 BSA (Body Surface Area) 1.73 m2 [facility] Work Phone: 06-05-2019 13:43-0500 Height 160.02 cm [facility] Work Phone: 06-05-2019 13:43-0500 Pulse (Heart Rate) 73 /min [facility] Work Phone: 06-05-2019 13:43-0500 Pulse Oximetry 96 % [facility] Work Phone: 04-23-2019 13:59-0500 BMI (Body Mass Index) 27.1 kg/m2 [facility] Work Phone: 04-23-2019 13:59-0500 Body weight 69.4 kg [facility] Work Phone: 04-23-2019 13:59-0500 BP Diastolic 76 mm[Hg] [facility] Work Phone: 04-23-2019 13:59-0500 BP Systolic 124 mm[Hg] [facility] Work Phone: 04-23-2019 13:59-0500 BSA (Body Surface Area) 1.73 m2 [facility] Work Phone: 04-23-2019 13:59-0500 Height 160.02 cm [facility] Work Phone: 04-23-2019 13:59-0500 Pulse (Heart Rate) 58 /min [facility] Work Phone: 04-23-2019 13:59-0500 Pulse Oximetry 97 % [facility] Work Phone: 04-15-2019 10:33-0500 BMI (Body Mass Index) 28 kg/m2 [facility] Work Phone: 04-15-2019 10:33-0500 Body Temperature 99.3 [degF] [facility] Work Phone: 04-15-2019 10:33-0500 Body weight 71.76 kg [facility] Work Phone: 04-15-2019 10:33-0500 BP Diastolic 84 mm[Hg] [facility] Work Phone: 04-15-2019 10:33-0500 BP Systolic 120 mm[Hg] [facility] Work Phone: 04-15-2019 10:33-0500 BSA (Body Surface Area) 1.75 m2 [facility] Work Phone: 04-15-2019 10:33-0500 Height 160.02 cm [facility] Work Phone: 04-15-2019 10:33-0500 Pulse (Heart Rate) 83 /min [facility] Work Phone: 04-15-2019 10:33-0500 Pulse Oximetry 97 % [facility] Work Phone: 04-10-2019 12:10-0500 BP Diastolic 85 mm[Hg] [facility] , [place] 04-10-2019 12:10-0500 BP Systolic 128 mm[Hg] [facility] [place] 04-10-2019 12:10-0500 Pulse (Heart Rate) 83 /min [facility], [place] 04-10-2019 12:10-0500 Pulse Oximetry 99 % [facility] [place] 04-10-2019 12:10-0500 Respiratory Rate 12 /min [facility], [place] 03-05-2019 09:25-0400 BMI (Body Mass Index) 27.7 kg/m2 [facility] Work Phone: 03-05-2019 09:25-0400 Body Temperature 96.5 [degF] [facility] Work Phone: 03-05-2019 09:25-0400 Body weight 70.94 kg [facility] Work Phone: 03-05-2019 09:25-0400 BP Diastolic 86 mm[Hg] [facility] Work Phone: 03-05-2019 09:25-0400 BP Systolic 110 mm[Hg] [facility] Work Phone: 03-05-2019 09:25-0400 BSA (Body Surface Area) 1.74 m2 [facility] Work Phone: 03-05-2019 09:25-0400 Height 160.02 cm [facility] Work Phone: 03-05-2019 09:25-0400 Pulse (Heart Rate) 86 /min [facility] Work Phone: 03-05-2019 09:25-0400 Pulse Oximetry 97 % [facility] Work Phone: 03-05-2019 09:25-0400 Respiratory Rate 18 /min [facility] Work Phone: 12-22-2018 10:11-0400 BMI (Body Mass Index) 28.4 kg/m2 [facility] Work Phone: 12-22-2018 10:11-0400 Body Temperature 98.2 [degF] [facility] Work Phone: 12-22-2018 10:11-0400 Body weight 72.85 kg [facility] Work Phone: 12-22-2018 10:11-0400 BP Diastolic 80 mm[Hg] [facility] Work Phone: 12-22-2018 10:11-0400 BP Systolic 110 mm[Hg] [facility] Work Phone: 12-22-2018 10:11-0400 BSA (Body Surface Area) 1.76 m2 [facility] Work Phone: 12-22-2018 10:11-0400 Height 160.02 cm [facility] Work Phone: 12-22-2018 10:11-0400 Pulse (Heart Rate) 67 /min [facility] Work Phone: 12-22-2018 10:11-0400 Pulse Oximetry 94 % [facility] Work Phone: 12-22-2018 10:11-0400 Respiratory Rate 14 /min [facility] Work Phone: 11-06-2018 13:55-0400 BMI (Body Mass Index) 28.7 kg/m2 [facility] Work Phone: 11-06-2018 13:55-0400 Body Temperature 97.8 [degF] Karlajulius Clark [facility] Work Phone: 11-06-2018 13:55-0400 Body weight 73.48 kg [facility] Work Phone: 11-06-2018 13:55-0400 BP Diastolic 76 mm[Hg] [facility] Work Phone: 11-06-2018 13:55-0400 BP Systolic 110 mm[Hg] [facility] Work Phone: 11-06-2018 13:55-0400 BSA (Body Surface Area) 1.77 m2 [facility] Work Phone: 11-06-2018 13:55-0400 Height 160.02 cm [facility] Work Phone: 11-06-2018 13:55-0400 Pulse (Heart Rate) 80 /min [facility] Work Phone: 11-06-2018 13:55-0400 Pulse Oximetry 98 % [facility] Work Phone: 11-06-2018 13:55-0400 Respiratory Rate 22 /min [facility] Work Phone: 09-11-2018 10:25-0400 Body height 160.02 cm Karla Clark [facility] Work Phone: [facility] Work Phone: 09-11-2018 10:25-0400 Body mass index (BMI) [Ratio] 29.6 kg/m2 Karla Clark [facility] Work Phone: [facility] Work Phone: 09-11-2018 10:25-0400 Body surface area Derived from formula 1.79 m2 Karla Clark [facility] Work Phone: [facility] Work Phone: 09-11-2018 10:25-0400 Body temperature 97.4 [degF] Karla Clark CNP Work Phone: [facility] Work Phone: 09-11-2018 10:25-0400 Body weight 75.75 kg Karla Clark CNP Work Phone: [facility] Work Phone: 09-11-2018 10:25-0400 Diastolic blood pressure 76 mm[Hg] Karla Clark CNP Work Phone: [facility] Work Phone: 09-11-2018 10:25-0400 Heart rate 78 /min Karla Clark CNP Work Phone: [facility] Work Phone: 09-11-2018 10:25-0400 Pulse Oximetry 99 % Karla Clark [facility] Work Phone: 09-11-2018 10:25-0400 Respiratory rate 22 /min Karla Clark CNP Work Phone: [facility] Work Phone: 09-11-2018 10:25-0400 SaO2% (BldA) [Mass fraction] 99 % Karla Clark CNP Work Phone: [facility] Work Phone: 09-11-2018 10:25-0400 Systolic blood pressure 120 mm[Hg] Karla Clark CNP Work Phone: [facility] Work Phone: 09-04-2018 13:24-0400 Body height 160.02 cm Karla Clark CNP Work Phone: [facility] Work Phone: 09-04-2018 13:24-0400 Body mass index (BMI) [Ratio] 29.8 kg/m2 Karla Clark CNP Work Phone: [facility] Work Phone: 09-04-2018 13:24-0400 Body surface area Derived from formula 1.8 m2 Karla Clark CNP Work Phone: [facility] Work Phone: 09-04-2018 13:24-0400 Body temperature 98.3 [degF] Karla Clark CNP Work Phone: [facility] Work Phone: 09-04-2018 13:24-0400 Body weight 76.3 kg Karla Clark CNP Work Phone: [facility] Work Phone: 09-04-2018 13:24-0400 Diastolic blood pressure 90 mm[Hg] Karla Clark CNP Work Phone: [facility] Work Phone: 09-04-2018 13:24-0400 Heart rate 86 /min Karla Clark CNP Work Phone: [facility] Work Phone: 09-04-2018 13:24-0400 Inhaled oxygen concentration 21 % Karla Clark CNP Work Phone: [facility] Work Phone: 09-04-2018 13:24-0400 Inhaled oxygen flow rate 0 L/min Karla Clark CNP Work Phone: [facility] Work Phone: 09-04-2018 13:24-0400 Respiratory rate 20 /min Karla Clark CNP Work Phone: [facility] Work Phone: 09-04-2018 13:24-0400 Systolic blood pressure 146 mm[Hg] Karla Clark CNP Work Phone: [facility] Work Phone: 07-31-2018 13:37-0500 Body height 160.02 cm Karla Clark CNP Work Phone: [facility] Work Phone: 07-31-2018 13:37-0500 Body mass index (BMI) [Ratio] 29.9 kg/m2 Karla Clark CNP Work Phone: [facility] Work Phone: 07-31-2018 13:37-0500 Body surface area Derived from formula 1.8 m2 Karla Clark CNP Work Phone: [facility] Work Phone: 07-31-2018 13:37-0500 Body temperature 97.9 [degF] Karla Clark CNP Work Phone: [facility] Work Phone: 07-31-2018 13:37-0500 Body weight 76.66 kg Karla Clark CNP Work Phone: [facility] Work Phone: 07-31-2018 13:37-0500 Diastolic blood pressure 74 mm[Hg] Karla Clark CNP Work Phone: [facility] Work Phone: 07-31-2018 13:37-0500 Heart rate 51 /min Karla Clark CNP Work Phone: [facility] Work Phone: 07-31-2018 13:37-0500 Pulse Oximetry 100 % Karla Clark [facility] Work Phone: 07-31-2018 13:37-0500 Respiratory rate 22 /min Karla Clark CNP Work Phone: [facility] Work Phone: 07-31-2018 13:37-0500 SaO2% (BldA) [Mass fraction] 100 % Karla Clark CNP Work Phone: [facility] Work Phone: 07-31-2018 13:37-0500 Systolic blood pressure 122 mm[Hg] Karla Clark CNP Work Phone: [facility] Work Phone: 05-08-2018 17:00-0500 BMI (Body Mass Index) 29.94 kg/m2 [facility] 05-08-2018 17:00-0500 Body Temperature 97.9 [degF] [facility] 05-08-2018 17:00-0500 BP Diastolic 70 mm[Hg] [facility] 05-08-2018 17:00-0500 BP Systolic 124 mm[Hg] [facility] 05-08-2018 17:00-0500 BSA (Body Surface Area) 1.85 m2 [facility] 05-08-2018 17:00-0500 Height 160.02 cm [facility] 05-08-2018 17:00-0500 Pulse (Heart Rate) 70 /min [facility] 05-08-2018 17:00-0500 Pulse Oximetry 99 % [facility] 05-08-2018 17:00-0500 Respiratory Rate 20 /min [facility] 05-08-2018 17:00-0500 Weight 76.66 kg [facility] 05-08-2018 15:00-0500 Body mass index (BMI) [Ratio] 29.9 kg/m2 Karla Amber CNP Work Phone: [facility] Work Phone: 05-08-2018 15:00-0500 Body surface area Derived from formula 1.8 m2 [facility] Work Phone: [facility] Work Phone: 05-08-2018 15:00-0500 Body weight 76.66 kg Karla 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: [facility] Work Phone: 03-20-2018 13:39-0400 BMI (Body Mass Index) 30.11 kg/m2 [facility] 03-20-2018 13:39-0400 Body Temperature 97.9 [degF] [facility] 03-20-2018 13:39-0400 BP Diastolic 84 mm[Hg] [facility] 03-20-2018 13:39-0400 BP Systolic 122 mm[Hg] [facility] 03-20-2018 13:39-0400 BSA (Body Surface Area) 1.85 m2 [facility] 03-20-2018 13:39-0400 Height 160.02 cm [facility] 03-20-2018 13:39-0400 Pulse (Heart Rate) 59 /min [facility] 03-20-2018 13:39-0400 Pulse Oximetry 98 % [facility] 03-20-2018 13:39-0400 Respiratory Rate 20 /min [facility] 03-20-2018 13:39-0400 Weight 77.11 kg [facility] 03-20-2018 10:39-0400 Body height 160.02 cm Karla Amber [facility] Work Phone: [facility] Work Phone: 03-20-2018 10:39-0400 Body mass index (BMI) [Ratio] 30.1 kg/m2 Karla Clark CNP Work Phone: [facility] Work Phone: 03-20-2018 10:39-0400 Body surface area Derived from formula 1.8 m2 Karla Clark CNP Work Phone: [facility] Work Phone: 03-20-2018 10:39-0400 Body temperature 97.9 [degF] Karla Clark CNP Work Phone: [facility] Work Phone: 03-20-2018 10:39-0400 Body weight 77.11 kg Karla Clark CNP Work Phone: [facility] Work Phone: 03-20-2018 10:39-0400 Diastolic blood pressure 84 mm[Hg] Karla Clark CNP Work Phone: [facility] Work Phone: 03-20-2018 10:39-0400 Heart rate 59 /min Karla Clark CNP Work Phone: [facility] Work Phone: 03-20-2018 10:39-0400 Respiratory rate 20 /min Karla Clark CNP Work Phone: [facility] Work Phone: 03-20-2018 10:39-0400 Systolic blood pressure 122 mm[Hg] Karla Clark CNP Work Phone: [facility] Work Phone: 02-11-2018 17:45-0400 BMI (Body Mass Index) 30.11 kg/m2 Karla Amber [facility] 02-11-2018 17:45-0400 Body Temperature 98.6 [degF] Karla Amber [facility] 02-11-2018 17:45-0400 BP Diastolic 80 mm[Hg] [facility] 02-11-2018 17:45-0400 BP Systolic 124 mm[Hg] [facility] 02-11-2018 17:45-0400 BSA (Body Surface Area) 1.85 m2 [facility] 02-11-2018 17:45-0400 Height 160.02 cm [facility] 02-11-2018 17:45-0400 Pulse (Heart Rate) 72 /min [facility] 02-11-2018 17:45-0400 Pulse Oximetry 97 % [facility] 02-11-2018 17:45-0400 Respiratory Rate 20 /min [facility] 02-11-2018 17:45-0400 Weight 77.11 kg [facility] 02-11-2018 16:45-0400 BMI (Body Mass Index) 30.11 kg/m2 [facility] 02-11-2018 16:45-0400 Body Temperature 98.6 [degF] [facility] 02-11-2018 16:45-0400 BP Diastolic 80 mm[Hg] [facility] 02-11-2018 16:45-0400 BP Systolic 124 mm[Hg] [facility] 02-11-2018 16:45-0400 BSA (Body Surface Area) 1.85 m2 [facility] 02-11-2018 16:45-0400 Height 160.02 cm [facility] 02-11-2018 16:45-0400 Pulse (Heart Rate) 72 /min Karla Clark [facility] 02-11-2018 16:45-0400 Pulse Oximetry 97 % Karla Clark [facility] 02-11-2018 16:45-0400 Respiratory Rate 20 /min Karla Clark [facility] 02-11-2018 16:45-0400 Weight 77.11 kg Karla Clark [facility] 02-11-2018 14:45-0400 Body height 160.02 cm Karla Clark CNP Work Phone: [facility] Work Phone: 02-11-2018 14:45-0400 Body mass index (BMI) [Ratio] 30.1 kg/m2 Karla Clark CNP Work Phone: [facility] Work Phone: 02-11-2018 14:45-0400 Body surface area Derived from formula 1.8 m2 Karla Clark CNP Work Phone: [facility] Work Phone: 02-11-2018 14:45-0400 Body temperature 98.6 [degF] Karla Clark CNP Work Phone: [facility] Work Phone: 02-11-2018 14:45-0400 Body weight 77.11 kg Karla Clark CNP Work Phone: [facility] Work Phone: 02-11-2018 14:45-0400 Diastolic blood pressure 80 mm[Hg] Karla Clark CNP Work Phone: [facility] Work Phone: 02-11-2018 14:45-0400 Heart rate 72 /min Karla Clark CNP Work Phone: [facility] Work Phone: 02-11-2018 14:45-0400 Respiratory rate 20 /min Karla 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: [facility] Work Phone: 02-11-2018 14:45-0400 Systolic blood pressure 124 mm[Hg] Karla 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: [facility] Work Phone: 12-19-2017 17:08-0400 BMI (Body Mass Index) 30.29 kg/m2 [facility] 12-19-2017 17:08-0400 Body Temperature 98.7 [degF] [facility] 12-19-2017 17:08-0400 BP Diastolic 80 mm[Hg] [facility] 12-19-2017 17:08-0400 BP Systolic 122 mm[Hg] [facility] 12-19-2017 17:08-0400 BSA (Body Surface Area) 1.86 m2 [facility] 12-19-2017 17:08-0400 Height 160.02 cm [facility] 12-19-2017 17:08-0400 Pulse (Heart Rate) 97 /min [facility] 12-19-2017 17:08-0400 Pulse Oximetry 96 % [facility] 12-19-2017 17:08-0400 Respiratory Rate 18 /min [facility] 12-19-2017 17:08-0400 Weight 77.57 kg [facility] 12-19-2017 16:08-0400 BMI (Body Mass Index) 30.29 kg/m2 [facility] 12-19-2017 16:08-0400 Body Temperature 98.7 [degF] [facility] 12-19-2017 16:08-0400 BP Diastolic 80 mm[Hg] [facility] 12-19-2017 16:08-0400 BP Systolic 122 mm[Hg] [facility] 12-19-2017 16:08-0400 BSA (Body Surface Area) 1.86 m2 [facility] 12-19-2017 16:08-0400 Height 160.02 cm [facility] 12-19-2017 16:08-0400 Pulse (Heart Rate) 97 /min [facility] 12-19-2017 16:08-0400 Pulse Oximetry 96 % [facility] 12-19-2017 16:08-0400 Respiratory Rate 18 /min [facility] 12-19-2017 16:08-0400 Weight 77.57 kg [facility] 12-19-2017 14:08-0400 Body height 160.02 cm Karla Amber [facility] Work Phone: [facility] Work Phone: 12-19-2017 14:08-0400 Body mass index (BMI) [Ratio] 30.3 kg/m2 Karla Amber [facility] Work Phone: [facility] Work Phone: 12-19-2017 14:08-0400 Body surface area Derived from formula 1.81 m2 Karla Amber [facility] Work Phone: [facility] Work Phone: 12-19-2017 14:08-0400 Body temperature 98.7 [degF] Karla Clark CNP Work Phone: [facility] Work Phone: 12-19-2017 14:08-0400 Body weight 77.57 kg Karla Clark CNP Work Phone: [facility] Work Phone: 12-19-2017 14:08-0400 Diastolic blood pressure 80 mm[Hg] Karla Clark CNP Work Phone: [facility] Work Phone: 12-19-2017 14:08-0400 Heart rate 97 /min Karla Clark CNP Work Phone: [facility] Work Phone: 12-19-2017 14:08-0400 Respiratory rate 18 /min Karla Clark CNP Work Phone: [facility] Work Phone: 12-19-2017 14:08-0400 Systolic blood pressure 122 mm[Hg] Karla Clark CNP Work Phone: [facility] Work Phone: 10-08-2017 14:21-0400 BMI (Body Mass Index) 29.47 kg/m2 [facility] 10-08-2017 14:21-0400 Body Temperature 97.5 [degF] Karla Amber [facility] 10-08-2017 14:21-0400 BP Diastolic 71 mm[Hg] [facility] 10-08-2017 14:21-0400 BP Systolic 109 mm[Hg] Karla Amber [facility] 10-08-2017 14:21-0400 BSA (Body Surface Area) 1.83 m2 [facility] 10-08-2017 14:21-0400 Height 160.02 cm [facility] 10-08-2017 14:21-0400 Pulse (Heart Rate) 53 /min [facility] 10-08-2017 14:21-0400 Pulse Oximetry 98 % [facility] 10-08-2017 14:21-0400 Respiratory Rate 18 /min [facility] 10-08-2017 14:21-0400 Weight 75.47 kg [facility] 10-08-2017 13:21-0400 BMI (Body Mass Index) 29.47 kg/m2 [facility] 10-08-2017 13:21-0400 Body Temperature 97.5 [degF] [facility] 10-08-2017 13:21-0400 BP Diastolic 71 mm[Hg] [facility] 10-08-2017 13:21-0400 BP Systolic 109 mm[Hg] [facility] 10-08-2017 13:21-0400 BSA (Body Surface Area) 1.83 m2 [facility] 10-08-2017 13:21-0400 Height 160.02 cm [facility] 10-08-2017 13:21-0400 Pulse (Heart Rate) 53 /min [facility] 10-08-2017 13:21-0400 Pulse Oximetry 98 % [facility] 10-08-2017 13:21-0400 Respiratory Rate 18 /min Karla Clark [facility] 10-08-2017 13:21-0400 Weight 75.47 kg Karla Clark [facility] 10-08-2017 11:21-0400 Body height 160.02 cm Karla Clark CNP Work Phone: [facility] Work Phone: 10-08-2017 11:21-0400 Body mass index (BMI) [Ratio] 29.4 kg/m2 Karla Clark CNP Work Phone: [facility] Work Phone: 10-08-2017 11:21-0400 Body surface area Derived from formula 1.79 m2 Karla Clark CNP Work Phone: [facility] Work Phone: 10-08-2017 11:21-0400 Body temperature 97.5 [degF] Karla Clark CNP Work Phone: [facility] Work Phone: 10-08-2017 11:21-0400 Body weight 75.3 kg Karla Clark CNP Work Phone: [facility] Work Phone: 10-08-2017 11:21-0400 Diastolic blood pressure 71 mm[Hg] Karla Clark CNP Work Phone: [facility] Work Phone: 10-08-2017 11:21-0400 Heart rate 53 /min Karla Clark CNP Work Phone: [facility] Work Phone: 10-08-2017 11:21-0400 Respiratory rate 18 /min Karla Clark CNP Work Phone: [facility] Work Phone: 10-08-2017 11:21-0400 Systolic blood pressure 109 mm[Hg] Karla Clark CNP Work Phone: [facility] Work Phone: 09-17-2017 13:46-0400 BMI (Body Mass Index) 29.43 kg/m2 [facility] 09-17-2017 13:46-0400 Body Temperature 98.9 [degF] [facility] 09-17-2017 13:46-0400 BP Diastolic 61 mm[Hg] [facility] 09-17-2017 13:46-0400 BP Systolic 91 mm[Hg] [facility] 09-17-2017 13:46-0400 BSA (Body Surface Area) 1.83 m2 [facility] 09-17-2017 13:46-0400 Height 160.02 cm [facility] 09-17-2017 13:46-0400 Pulse (Heart Rate) 54 /min [facility] 09-17-2017 13:46-0400 Pulse Oximetry 96 % [facility] 09-17-2017 13:46-0400 Respiratory Rate 18 /min [facility] 09-17-2017 13:46-0400 Weight 75.35 kg [facility] 09-17-2017 12:46-0400 BMI (Body Mass Index) 29.43 kg/m2 [facility] 09-17-2017 12:46-0400 Body Temperature 98.9 [degF] [facility] 09-17-2017 12:46-0400 BP Diastolic 61 mm[Hg] [facility] 12:46-0400 BP Systolic 91 mm[Hg] [facility] 09-17-2017 12:46-0400 BSA (Body Surface Area) 1.83 m2 [facility] 09-17-2017 12:46-0400 Height 160.02 cm [facility] 09-17-2017 12:46-0400 Pulse (Heart Rate) 54 /min [facility] 09-17-2017 12:46-0400 Pulse Oximetry 96 % [facility] 09-17-2017 12:46-0400 Respiratory Rate 18 /min [facility] 09-17-2017 12:46-0400 Weight 75.35 kg [facility] 09-17-2017 10:46-0400 Body height 160.02 cm Karla Clark [facility] Work Phone: [facility] Work Phone: 09-17-2017 10:46-0400 Body mass index (BMI) [Ratio] 29.4 kg/m2 Karla Clark [facility] Work Phone: [facility] Work Phone: 09-17-2017 10:46-0400 Body surface area Derived from formula 1.79 m2 Karla Clark [facility] Work Phone: [facility] Work Phone: 09-17-2017 10:46-0400 Body temperature 98.9 [degF] Karla Clark [facility] Work Phone: [facility] Work Phone: 09-17-2017 10:46-0400 Body weight 75.3 kg Karla Clark CNP Work Phone: [facility] Work Phone: 09-17-2017 10:46-0400 Diastolic blood pressure 61 mm[Hg] Karla Clark CNP Work Phone: [facility] Work Phone: 09-17-2017 10:46-0400 Heart rate 54 /min Karla Clark CNP Work Phone: [facility] Work Phone: 09-17-2017 10:46-0400 Respiratory rate 18 /min Karla Clark CNP Work Phone: [facility] Work Phone: 09-17-2017 10:46-0400 Systolic blood pressure 91 mm[Hg] Karla Clark CNP Work Phone: [facility] Work Phone: 07-30-2017 11:43-0500 BMI (Body Mass Index) 28.87 kg/m2 [facility] 07-30-2017 11:43-0500 Body Temperature 97.2 [degF] [facility] 07-30-2017 11:43-0500 BP Diastolic 84 mm[Hg] [facility] 07-30-2017 11:43-0500 BP Systolic 119 mm[Hg] [facility] 07-30-2017 11:43-0500 BSA (Body Surface Area) 1.81 m2 [facility] 07-30-2017 11:43-0500 Height 160.02 cm [facility] 07-30-2017 11:43-0500 Pulse (Heart Rate) 63 /min [facility] 07-30-2017 11:43-0500 Pulse Oximetry 98 % [facility] 07-30-2017 11:43-0500 Respiratory Rate 20 /min [facility] 07-30-2017 11:43-0500 Weight 73.94 kg [facility] 07-30-2017 10:43-0500 BMI (Body Mass Index) 28.87 kg/m2 [facility] 07-30-2017 10:43-0500 Body Temperature 97.2 [degF] [facility] 07-30-2017 10:43-0500 BP Diastolic 84 mm[Hg] [facility] 07-30-2017 10:43-0500 BP Systolic 119 mm[Hg] [facility] 07-30-2017 10:43-0500 BSA (Body Surface Area) 1.81 m2 [facility] 07-30-2017 10:43-0500 Height 160.02 cm [facility] 07-30-2017 10:43-0500 Pulse (Heart Rate) 63 /min [facility] 07-30-2017 10:43-0500 Pulse Oximetry 98 % [facility] 07-30-2017 10:43-0500 Respiratory Rate 20 /min [facility] 07-30-2017 10:43-0500 Weight 73.94 kg [facility] 05-14-2017 12:46-0500 BMI (Body Mass Index) 29.23 kg/m2 [facility] 05-14-2017 12:46-0500 Body Temperature 98.2 [degF] [facility] 05-14-2017 12:46-0500 BP Diastolic 80 mm[Hg] [facility] 05-14-2017 12:46-0500 BP Systolic 118 mm[Hg] [facility] 05-14-2017 12:46-0500 BSA (Body Surface Area) 1.82 m2 [facility] 05-14-2017 12:46-0500 Height 160.02 cm [facility] 05-14-2017 12:46-0500 Pulse (Heart Rate) 88 /min [facility] 05-14-2017 12:46-0500 Pulse Oximetry 98 % [facility] 05-14-2017 12:46-0500 Respiratory Rate 18 /min [facility] 05-14-2017 12:46-0500 Weight 74.84 kg [facility] 05-14-2017 11:46-0500 BMI (Body Mass Index) 29.23 kg/m2 [facility] 05-14-2017 11:46-0500 Body Temperature 98.2 [degF] [facility] 05-14-2017 11:46-0500 BP Diastolic 80 mm[Hg] [facility] 05-14-2017 11:46-0500 BP Systolic 118 mm[Hg] [facility] 05-14-2017 11:46-0500 BSA (Body Surface Area) 1.82 m2 [facility] 05-14-2017 11:46-0500 Height 160.02 cm [facility] 05-14-2017 11:46-0500 Pulse (Heart Rate) 88 /min [facility] 05-14-2017 11:46-0500 Pulse Oximetry 98 % [facility] 05-14-2017 11:46-0500 Respiratory Rate 18 /min [facility] 05-14-2017 11:46-0500 Weight 74.84 kg [facility] 04-18-2017 17:33-0500 BMI (Body Mass Index) 29.25 kg/m2 [facility] 04-18-2017 17:33-0500 Body Temperature 97.5 [degF] [facility] 04-18-2017 17:33-0500 BP Diastolic 60 mm[Hg] [facility] 04-18-2017 17:33-0500 BP Systolic 94 mm[Hg] [facility] 04-18-2017 17:33-0500 BSA (Body Surface Area) 1.82 m2 [facility] 04-18-2017 17:33-0500 Height 160.02 cm [facility] 04-18-2017 17:33-0500 Pulse (Heart Rate) 48 /min [facility] 04-18-2017 17:33-0500 Pulse Oximetry 97 % [facility] 04-18-2017 17:33-0500 Respiratory Rate 18 /min [facility] 04-18-2017 17:33-0500 Weight 74.9 kg [facility] 04-18-2017 16:33-0500 BMI (Body Mass Index) 29.25 kg/m2 [facility] 04-18-2017 16:33-0500 Body Temperature 97.5 [degF] [facility] 04-18-2017 16:33-0500 BP Diastolic 60 mm[Hg] [facility] 04-18-2017 16:33-0500 BP Systolic 94 mm[Hg] [facility] 04-18-2017 16:33-0500 BSA (Body Surface Area) 1.82 m2 [facility] 04-18-2017 16:33-0500 Height 160.02 cm [facility] 04-18-2017 16:33-0500 Pulse (Heart Rate) 48 /min [facility] 04-18-2017 16:33-0500 Pulse Oximetry 97 % [facility] 04-18-2017 16:33-0500 Respiratory Rate 18 /min [facility] 04-18-2017 16:33-0500 Weight 74.9 kg [facility] 03-07-2017 17:07-0400 BMI (Body Mass Index) 29.25 kg/m2 [facility] 03-07-2017 17:07-0400 Body Temperature 98.7 [degF] [facility] 03-07-2017 17:07-0400 BP Diastolic 68 mm[Hg] [facility] 03-07-2017 17:07-0400 BP Systolic 100 mm[Hg] [facility] 03-07-2017 17:07-0400 BSA (Body Surface Area) 1.82 m2 [facility] 03-07-2017 17:07-0400 Height 160.02 cm [facility] 03-07-2017 17:07-0400 Pulse (Heart Rate) 65 /min [facility] 03-07-2017 17:07-0400 Pulse Oximetry 100 % [facility] 03-07-2017 17:07-0400 Respiratory Rate 18 /min [facility] 03-07-2017 17:07-0400 Weight 74.9 kg [facility] 03-07-2017 16:07-0400 BMI (Body Mass Index) 29.25 kg/m2 [facility] 03-07-2017 16:07-0400 Body Temperature 98.7 [degF] [facility] 03-07-2017 16:07-0400 BP Diastolic 68 mm[Hg] [facility] 03-07-2017 16:07-0400 BP Systolic 100 mm[Hg] [facility] 03-07-2017 16:07-0400 BSA (Body Surface Area) 1.82 m2 [facility] 03-07-2017 16:07-0400 Height 160.02 cm [facility] 03-07-2017 16:07-0400 Pulse (Heart Rate) 65 /min [facility] 03-07-2017 16:07-0400 Pulse Oximetry 100 % [facility] 03-07-2017 16:07-0400 Respiratory Rate 18 /min [facility] 03-07-2017 16:07-0400 Weight 74.9 kg [facility] 03-05-2017 16:29-0400 BMI (Body Mass Index) 29.1 kg/m2 [facility] 03-05-2017 16:29-0400 Body Temperature 97.6 [degF] [facility] 03-05-2017 16:29-0400 BP Diastolic 60 mm[Hg] [facility] 03-05-2017 16:29-0400 BP Systolic 102 mm[Hg] [facility] 03-05-2017 16:29-0400 BSA (Body Surface Area) 1.82 m2 [facility] 03-05-2017 16:29-0400 Height 160.02 cm [facility] 03-05-2017 16:29-0400 Pulse (Heart Rate) 60 /min [facility] 03-05-2017 16:29-0400 Pulse Oximetry 99 % [facility] 03-05-2017 16:29-0400 Respiratory Rate 18 /min [facility] 03-05-2017 16:29-0400 Weight 74.5 kg [facility] 03-05-2017 15:29-0400 BMI (Body Mass Index) 29.1 kg/m2 [facility] 03-05-2017 15:29-0400 Body Temperature 97.6 [degF] [facility] 03-05-2017 15:29-0400 BP Diastolic 60 mm[Hg] [facility] 03-05-2017 15:29-0400 BP Systolic 102 mm[Hg] [facility] 03-05-2017 15:29-0400 BSA (Body Surface Area) 1.82 m2 [facility] 03-05-2017 15:29-0400 Height 160.02 cm [facility] 03-05-2017 15:29-0400 Pulse (Heart Rate) 60 /min [facility] 03-05-2017 15:29-0400 Pulse Oximetry 99 % [facility] 03-05-2017 15:29-0400 Respiratory Rate 18 /min [facility] 03-05-2017 15:29-0400 Weight 74.5 kg [facility] 01-01-2017 11:52-0400 BMI (Body Mass Index) 28.59 kg/m2 [facility] 01-01-2017 11:52-0400 Body Temperature 97.5 [degF] [facility] 01-01-2017 11:52-0400 BP Diastolic 69 mm[Hg] [facility] 01-01-2017 11:52-0400 BP Systolic 114 mm[Hg] [facility] 01-01-2017 11:52-0400 BSA (Body Surface Area) 1.8 m2 [facility] 01-01-2017 11:52-0400 Height 160.02 cm [facility] 01-01-2017 11:52-0400 Pulse (Heart Rate) 61 /min [facility] 01-01-2017 11:52-0400 Pulse Oximetry 99 % [facility] 01-01-2017 11:52-0400 Respiratory Rate 20 /min [facility] 01-01-2017 11:52-0400 Weight 73.2 kg [facility] 01-01-2017 10:52-0400 BMI (Body Mass Index) 28.59 kg/m2 [facility] 01-01-2017 10:52-0400 Body Temperature 97.5 [degF] [facility] 01-01-2017 10:52-0400 BP Diastolic 69 mm[Hg] [facility] 01-01-2017 10:52-0400 BP Systolic 114 mm[Hg] [facility] 01-01-2017 10:52-0400 BSA (Body Surface Area) 1.8 m2 [facility] 01-01-2017 10:52-0400 Height 160.02 cm [facility] 01-01-2017 10:52-0400 Pulse (Heart Rate) 61 /min [facility] 01-01-2017 10:52-0400 Pulse Oximetry 99 % [facility] 01-01-2017 10:52-0400 Respiratory Rate 20 /min [facility] 01-01-2017 10:52-0400 Weight 73.2 kg [facility] 12-06-2016 12:51-0400 BMI (Body Mass Index) 28.79 kg/m2 [facility] 12-06-2016 12:51-0400 Body Temperature 97.5 [degF] [facility] 12-06-2016 12:51-0400 BP Diastolic 80 mm[Hg] [facility] 12-06-2016 12:51-0400 BP Systolic 104 mm[Hg] [facility] 12-06-2016 12:51-0400 BSA (Body Surface Area) 1.81 m2 [facility] 12-06-2016 12:51-0400 Height 160.02 cm [facility] 12-06-2016 12:51-0400 Pulse (Heart Rate) 81 /min [facility] rs [facility] 12-06-2016 12:51-0400 Pulse Oximetry 98 % [facility] 12-06-2016 12:51-0400 Respiratory Rate 18 /min [facility] 12-06-2016 12:51-0400 Weight 73.71 kg [facility] 12-06-2016 11:51-0400 BMI (Body Mass Index) 28.79 kg/m2 [facility] 12-06-2016 11:51-0400 Body Temperature 97.5 [degF] [facility] 12-06-2016 11:51-0400 BP Diastolic 80 mm[Hg] [facility] 12-06-2016 11:51-0400 BP Systolic 104 mm[Hg] [facility] 12-06-2016 11:51-0400 BSA (Body Surface Area) 1.81 m2 [facility] 12-06-2016 11:51-0400 Height 160.02 cm [facility] 12-06-2016 11:51-0400 Pulse (Heart Rate) 81 /min [facility] 12-06-2016 11:51-0400 Pulse Oximetry 98 % [facility] 12-06-2016 11:51-0400 Respiratory Rate 18 /min [facility] 12-06-2016 11:51-0400 Weight 73.71 kg [facility] 11-06-2016 14:21-0400 BMI (Body Mass Index) 29.58 kg/m2 [facility] 11-06-2016 14:21-0400 Body Temperature 97.5 [degF] [facility] 11-06-2016 14:21-0400 BP Diastolic 76 mm[Hg] [facility] 11-06-2016 14:21-0400 BP Systolic 117 mm[Hg] [facility] 11-06-2016 14:21-0400 BSA (Body Surface Area) 1.83 m2 [facility] 11-06-2016 14:21-0400 Height 160.02 cm [facility] 11-06-2016 14:21-0400 Pulse (Heart Rate) 64 /min [facility] 11-06-2016 14:21-0400 Pulse Oximetry 97 % [facility] 11-06-2016 14:21-0400 Respiratory Rate 18 /min [facility] 11-06-2016 14:21-0400 Weight 75.75 kg [facility] 11-06-2016 13:21-0400 BMI (Body Mass Index) 29.58 kg/m2 [facility] 11-06-2016 13:21-0400 Body Temperature 97.5 [degF] [facility] 11-06-2016 13:21-0400 BP Diastolic 76 mm[Hg] [facility] 11-06-2016 13:21-0400 BP Systolic 117 mm[Hg] [facility] 11-06-2016 13:21-0400 BSA (Body Surface Area) 1.83 m2 [facility] 11-06-2016 13:21-0400 Height 160.02 cm [facility] 11-06-2016 13:21-0400 Pulse (Heart Rate) 64 /min [facility] 11-06-2016 13:21-0400 Pulse Oximetry 97 % [facility] 11-06-2016 13:21-0400 Respiratory Rate 18 /min [facility] 11-06-2016 13:21-0400 Weight 75.75 kg [facility] 09-27-2016 17:31-0400 BMI (Body Mass Index) 28.67 kg/m2 [facility] 09-27-2016 17:31-0400 Body Temperature 98.2 [degF] [facility] 09-27-2016 17:31-0400 BP Diastolic 64 mm[Hg] [facility] 09-27-2016 17:31-0400 BP Systolic 105 mm[Hg] [facility] 09-27-2016 17:31-0400 BSA (Body Surface Area) 1.85 m2 [facility] 09-27-2016 17:31-0400 Height 162.56 cm [facility] 09-27-2016 17:31-0400 Pulse (Heart Rate) 102 /min [facility] 09-27-2016 17:31-0400 Pulse Oximetry 95 % [facility] 09-27-2016 17:31-0400 Respiratory Rate 18 /min [facility] 09-27-2016 17:31-0400 Weight 75.75 kg [facility] 09-27-2016 16:31-0400 BMI (Body Mass Index) 28.67 kg/m2 [facility] 09-27-2016 16:31-0400 Body Temperature 98.2 [degF] [facility] 09-27-2016 16:31-0400 BP Diastolic 64 mm[Hg] [facility] 09-27-2016 16:31-0400 BP Systolic 105 mm[Hg] [facility] 09-27-2016 16:31-0400 BSA (Body Surface Area) 1.85 m2 [facility] 09-27-2016 16:31-0400 Height 162.56 cm [facility] 09-27-2016 16:31-0400 Pulse (Heart Rate) 102 /min [facility] 09-27-2016 16:31-0400 Pulse Oximetry 95 % [facility] 09-27-2016 16:31-0400 Respiratory Rate 18 /min [facility] 09-27-2016 16:31-0400 Weight 75.75 kg [facility] 08-21-2016 13:22-0400 BMI (Body Mass Index) 28.41 kg/m2 [facility] 08-21-2016 13:22-0400 Body Temperature 97.7 [degF] [facility] 08-21-2016 13:22-0400 BP Diastolic 80 mm[Hg] [facility] 08-21-2016 13:22-0400 BP Systolic 110 mm[Hg] [facility] 08-21-2016 13:22-0400 BSA (Body Surface Area) 1.84 m2 [facility] 08-21-2016 13:22-0400 Height 162.56 cm [facility] 08-21-2016 13:22-0400 Pulse (Heart Rate) 58 /min [facility] 08-21-2016 13:22-0400 Pulse Oximetry 97 % [facility] 08-21-2016 13:22-0400 Respiratory Rate 18 /min [facility] 08-21-2016 13:22-0400 Weight 75.07 kg [facility] 08-21-2016 12:22-0400 BMI (Body Mass Index) 28.41 kg/m2 [facility] 08-21-2016 12:22-0400 Body Temperature 97.7 [degF] [facility] 08-21-2016 12:22-0400 BP Diastolic 80 mm[Hg] [facility] 08-21-2016 12:22-0400 BP Systolic 110 mm[Hg] [facility] 08-21-2016 12:22-0400 BSA (Body Surface Area) 1.84 m2 [facility] 08-21-2016 12:22-0400 Height 162.56 cm [facility] 08-21-2016 12:22-0400 Pulse (Heart Rate) 58 /min [facility] 08-21-2016 12:22-0400 Pulse Oximetry 97 % [facility] 08-21-2016 12:22-0400 Respiratory Rate 18 /min [facility] 08-21-2016 12:22-0400 Weight 75.07 kg [facility] 06-26-2016 16:13-0500 BMI (Body Mass Index) 28.9 kg/m2 [facility] 06-26-2016 16:13-0500 Body Temperature 97 [degF] [facility] 06-26-2016 16:13-0500 BP Diastolic 80 mm[Hg] [facility] 06-26-2016 16:13-0500 BP Systolic 106 mm[Hg] [facility] 06-26-2016 16:13-0500 BSA (Body Surface Area) 1.86 m2 [facility] 06-26-2016 16:13-0500 Height 162.56 cm [facility] 06-26-2016 16:13-0500 Pulse (Heart Rate) 61 /min [facility] 06-26-2016 16:13-0500 Pulse Oximetry 97 % [facility] 06-26-2016 16:13-0500 Respiratory Rate 18 /min [facility] 06-26-2016 16:13-0500 Weight 76.37 kg [facility] 06-26-2016 15:13-0500 BMI (Body Mass Index) 28.9 kg/m2 [facility] 06-26-2016 15:13-0500 Body Temperature 97 [degF] [facility] 06-26-2016 15:13-0500 BP Diastolic 80 mm[Hg] [facility] 06-26-2016 15:13-0500 BP Systolic 106 mm[Hg] [facility] 06-26-2016 15:13-0500 BSA (Body Surface Area) 1.86 m2 [facility] 06-26-2016 15:13-0500 Height 162.56 cm [facility] 06-26-2016 15:13-0500 Pulse (Heart Rate) 61 /min [facility] 06-26-2016 15:13-0500 Pulse Oximetry 97 % [facility] 06-26-2016 15:13-0500 Respiratory Rate 18 /min [facility] 06-26-2016 15:13-0500 Weight 76.37 kg [facility] 06-12-2016 13:32-0500 BMI (Body Mass Index) 27.85 kg/m2 [facility] 06-12-2016 13:32-0500 Body Temperature 97.5 [degF] [facility] 06-12-2016 13:32-0500 BP Diastolic 68 mm[Hg] [facility] 06-12-2016 13:32-0500 BP Systolic 100 mm[Hg] [facility] 06-12-2016 13:32-0500 BSA (Body Surface Area) 1.82 m2 [facility] 06-12-2016 13:32-0500 Height 162.56 cm [facility] 06-12-2016 13:32-0500 Pulse (Heart Rate) 68 /min [facility] 06-12-2016 13:32-0500 Pulse Oximetry 98 % [facility] 06-12-2016 13:32-0500 Respiratory Rate 18 /min [facility] 06-12-2016 13:32-0500 Weight 73.6 kg [facility] 06-12-2016 12:32-0500 BMI (Body Mass Index) 27.85 kg/m2 [facility] 06-12-2016 12:32-0500 Body Temperature 97.5 [degF] [facility] 06-12-2016 12:32-0500 BP Diastolic 68 mm[Hg] [facility] 06-12-2016 12:32-0500 BP Systolic 100 mm[Hg] [facility] 06-12-2016 12:32-0500 BSA (Body Surface Area) 1.82 m2 [facility] 06-12-2016 12:32-0500 Height 162.56 cm [facility] 06-12-2016 12:32-0500 Pulse (Heart Rate) 68 /min [facility] 06-12-2016 12:32-0500 Pulse Oximetry 98 % [facility] 06-12-2016 12:32-0500 Respiratory Rate 18 /min [facility] 06-12-2016 12:32-0500 Weight 73.6 kg [facility] 05-22-2016 15:51-0500 BMI (Body Mass Index) 27.81 kg/m2 [facility] 05-22-2016 15:51-0500 Body Temperature 98 [degF] [facility] 05-22-2016 15:51-0500 BP Diastolic 67 mm[Hg] [facility] 05-22-2016 15:51-0500 BP Systolic 104 mm[Hg] [facility] 05-22-2016 15:51-0500 BSA (Body Surface Area) 1.82 m2 [facility] 05-22-2016 15:51-0500 Height 162.56 cm [facility] 05-22-2016 15:51-0500 P[facility] ([facility] Rate) 89 /min [facility] 05-22-2016 15:51-0500 Pulse Oximetry 99 % [facility] 05-22-2016 15:51-0500 Respiratory Rate 18 /min [facility] 05-22-2016 15:51-0500 Weight 73.48 kg [facility] 05-22-2016 14:51-0500 BMI (Body Mass Index) 27.81 kg/m2 [facility] 05-22-2016 14:51-0500 Body Temperature 98 [degF] [facility] 05-22-2016 14:51-0500 BP Diastolic 67 mm[Hg] [facility] 05-22-2016 14:51-0500 BP Systolic 104 mm[Hg] [facility] 05-22-2016 14:51-0500 BSA (Body Surface Area) 1.82 m2 [facility] 05-22-2016 14:51-0500 Height 162.56 cm [facility] 05-22-2016 14:51-0500 Pulse (Heart Rate) 89 /min [facility] 05-22-2016 14:51-0500 Pulse Oximetry 99 % [facility] 05-22-2016 14:51-0500 Respiratory Rate 18 /min [facility] 05-22-2016 14:51-0500 Weight 73.48 kg [facility] 04-10-2016 12:54-0500 BMI (Body Mass Index) 27.7 kg/m2 [facility] 04-10-2016 12:54-0500 Body Temperature 97.8 [degF] [facility] 04-10-2016 12:54-0500 BP Diastolic 74 mm[Hg] [facility] 04-10-2016 12:54-0500 BP Systolic 110 mm[Hg] [facility] 04-10-2016 12:54-0500 BSA (Body Surface Area) 1.82 m2 [facility] 04-10-2016 12:54-0500 Height 162.56 cm [facility] 04-10-2016 12:54-0500 Pulse (Heart Rate) 58 /min [facility] 04-10-2016 12:54-0500 Pulse Oximetry 98 % [facility] 04-10-2016 12:54-0500 Respiratory Rate 20 /min [facility] 04-10-2016 12:54-0500 Weight 73.2 kg [facility] 04-10-2016 11:54-0500 BMI (Body Mass Index) 27.7 kg/m2 [facility] 04-10-2016 11:54-0500 Body Temperature 97.8 [degF] [facility] 04-10-2016 11:54-0500 BP Diastolic 74 mm[Hg] [facility] 04-10-2016 11:54-0500 BP Systolic 110 mm[Hg] [facility] 04-10-2016 11:54-0500 BSA (Body Surface Area) 1.82 m2 [facility] 04-10-2016 11:54-0500 Height 162.56 cm [facility] 04-10-2016 11:54-0500 Pulse (Heart Rate) 58 /min [facility] 04-10-2016 11:54-0500 Pulse Oximetry 98 % [facility] 04-10-2016 11:54-0500 Respiratory Rate 20 /min [facility] 04-10-2016 11:54-0500 Weight 73.2 kg [facility] 03-20-2016 13:39-0400 BMI (Body Mass Index) 27.83 kg/m2 [facility] 03-20-2016 13:39-0400 Body Temperature 98.6 [degF] [facility] 03-20-2016 13:39-0400 BP Diastolic 80 mm[Hg] [facility] 03-20-2016 13:39-0400 BP Systolic 122 mm[Hg] [facility] 03-20-2016 13:39-0400 BSA (Body Surface Area) 1.82 m2 [facility] 03-20-2016 13:39-0400 Height 162.56 cm [facility] 03-20-2016 13:39-0400 Pulse (Heart Rate) 69 /min [facility] 03-20-2016 13:39-0400 Pulse Oximetry 98 % [facility] 03-20-2016 13:39-0400 Respiratory Rate 18 /min [facility] 03-20-2016 13:39-0400 Weight 73.54 kg [facility] 03-20-2016 12:39-0400 BMI (Body Mass Index) 27.83 kg/m2 [facility] 03-20-2016 12:39-0400 Body Temperature 98.6 [degF] [facility] 03-20-2016 12:39-0400 BP Diastolic 80 mm[Hg] [facility] 03-20-2016 12:39-0400 BP Systolic 122 mm[Hg] [facility] 03-20-2016 12:39-0400 BSA (Body Surface Area) 1.82 m2 [facility] 03-20-2016 12:39-0400 Height 162.56 cm [facility] 03-20-2016 12:39-0400 Pulse (Heart Rate) 69 /min [facility] 03-20-2016 12:39-0400 Pulse Oximetry 98 % [facility] 03-20-2016 12:39-0400 Respiratory Rate 18 /min [facility] 03-20-2016 12:39-0400 Weight 73.54 kg [facility] 03-09-2016 14:12-0400 BMI (Body Mass Index) 27.64 kg/m2 [facility] 03-09-2016 14:12-0400 Body Temperature 99.2 [degF] [facility] 03-09-2016 14:12-0400 BP Diastolic 66 mm[Hg] [facility] 03-09-2016 14:12-0400 BP Systolic 102 mm[Hg] [facility] 03-09-2016 14:12-0400 BSA (Body Surface Area) 1.82 m2 [facility] 03-09-2016 14:12-0400 Height 162.56 cm [facility] 03-09-2016 14:12-0400 Pulse (Heart Rate) 70 /min [facility] 03-09-2016 14:12-0400 Pulse Oximetry 97 % [facility] 03-09-2016 14:12-0400 Respiratory Rate 18 /min [facility] 03-09-2016 14:12-0400 Weight 73.03 kg [facility] 03-09-2016 13:12-0400 BMI (Body Mass Index) 27.64 kg/m2 [facility] 03-09-2016 13:12-0400 Body Temperature 99.2 [degF] [facility] 03-09-2016 13:12-0400 BP Diastolic 66 mm[Hg] [facility] 03-09-2016 13:12-0400 BP Systolic 102 mm[Hg] [facility] 03-09-2016 13:12-0400 BSA (Body Surface Area) 1.82 m2 [facility] 03-09-2016 13:12-0400 Height 162.56 cm [facility] 03-09-2016 13:12-0400 Pulse (Heart Rate) 70 /min [facility] 03-09-2016 13:12-0400 Pulse Oximetry 97 % [facility] 03-09-2016 13:12-0400 Respiratory Rate 18 /min [facility] 03-09-2016 13:12-0400 Weight 73.03 kg [facility] 03-06-2016 18:13-0400 BMI (Body Mass Index) 27.72 kg/m2 [facility] 03-06-2016 18:13-0400 Body Temperature 98.6 [degF] [facility] 03-06-2016 18:13-0400 BP Diastolic 70 mm[Hg] [facility] 03-06-2016 18:13-0400 BP Systolic 107 mm[Hg] [facility] 03-06-2016 18:13-0400 BSA (Body Surface Area) 1.82 m2 [facility] 03-06-2016 18:13-0400 Height 162.56 cm [facility] 03-06-2016 18:13-0400 Pulse (Heart Rate) 65 /min [facility] 03-06-2016 18:13-0400 Pulse Oximetry 97 % [facility] 03-06-2016 18:13-0400 Respiratory Rate 18 /min [facility] 03-06-2016 18:13-0400 Weight 73.26 kg [facility] 03-06-2016 17:13-0400 BMI (Body Mass Index) 27.72 kg/m2 [facility] 03-06-2016 17:13-0400 Body Temperature 98.6 [degF] [facility] 03-06-2016 17:13-0400 BP Diastolic 70 mm[Hg] [facility] 03-06-2016 17:13-0400 BP Systolic 107 mm[Hg] [facility] 03-06-2016 17:13-0400 BSA (Body Surface Area) 1.82 m2 [facility] 03-06-2016 17:13-0400 Height 162.56 cm [facility] 03-06-2016 17:13-0400 Pulse (Heart Rate) 65 /min [facility] 03-06-2016 17:13-0400 Pulse Oximetry 97 % [facility] 03-06-2016 17:13-0400 Respiratory Rate 18 /min [facility] 03-06-2016 17:13-0400 Weight 73.26 kg [facility] 02-21-2016 13:12-0400 BMI (Body Mass Index) 28.15 kg/m2 [facility] 02-21-2016 13:12-0400 Body Temperature 97.2 [degF] [facility] 02-21-2016 13:12-0400 BP Diastolic 74 mm[Hg] [facility] 02-21-2016 13:12-0400 BP Systolic 118 mm[Hg] [facility] 02-21-2016 13:12-0400 BSA (Body Surface Area) 1.83 m2 [facility] 02-21-2016 13:12-0400 Height 162.56 cm [facility] 02-21-2016 13:12-0400 Pulse (Heart Rate) 63 /min [facility] 02-21-2016 13:12-0400 Pulse Oximetry 99 % [facility] 02-21-2016 13:12-0400 Respiratory Rate 18 /min [facility] 02-21-2016 13:12-0400 Weight 74.39 kg [facility] 02-21-2016 12:12-0400 BMI (Body Mass Index) 28.15 kg/m2 [facility] 02-21-2016 12:12-0400 Body Temperature 97.2 [degF] [facility] 02-21-2016 12:12-0400 BP Diastolic 74 mm[Hg] [facility] 02-21-2016 12:12-0400 BP Systolic 118 mm[Hg] [facility] 02-21-2016 12:12-0400 BSA (Body Surface Area) 1.83 m2 [facility] 02-21-2016 12:12-0400 Height 162.56 cm [facility] 02-21-2016 12:12-0400 Pulse (Heart Rate) 63 /min [facility] 02-21-2016 12:12-0400 Pulse Oximetry 99 % [facility] 02-21-2016 12:12-0400 Respiratory Rate 18 /min [facility] 02-21-2016 12:12-0400 Weight 74.39 kg [facility] 01-11-2016 13:02-0400 BMI (Body Mass Index) 28.34 kg/m2 [facility] 01-11-2016 13:02-0400 Body Temperature 98.2 [degF] [facility] 01-11-2016 13:02-0400 BP Diastolic 74 mm[Hg] [facility] 01-11-2016 13:02-0400 BP Systolic 126 mm[Hg] [facility] 01-11-2016 13:02-0400 BSA (Body Surface Area) 1.84 m2 [facility] 01-11-2016 13:02-0400 Height 162.56 cm [facility] 01-11-2016 13:02-0400 Pulse (Heart Rate) 69 /min [facility] 01-11-2016 13:02-0400 Pulse Oximetry 97 % [facility] 01-11-2016 13:02-0400 Respiratory Rate 18 /min [facility] 01-11-2016 13:02-0400 Weight 74.9 kg [facility] 01-11-2016 12:02-0400 BMI (Body Mass Index) 28.34 kg/m2 [facility] 01-11-2016 12:02-0400 Body Temperature 98.2 [degF] [facility] 01-11-2016 12:02-0400 BP Diastolic 74 mm[Hg] [facility] 01-11-2016 12:02-0400 BP Systolic 126 mm[Hg] [facility] 01-11-2016 12:02-0400 BSA (Body Surface Area) 1.84 m2 [facility] 01-11-2016 12:02-0400 Height 162.56 cm [facility] 01-11-2016 12:02-0400 Pulse (Heart Rate) 69 /min [facility] 01-11-2016 12:02-0400 Pulse Oximetry 97 % [facility] 01-11-2016 12:02-0400 Respiratory Rate 18 /min [facility] 01-11-2016 12:02-0400 Weight 74.9 kg [facility] 12-08-2015 11:37-0400 BMI (Body Mass Index) 28.52 kg/m2 [facility] 12-08-2015 11:37-0400 BMI (Body Mass Index) 28.51 kg/m2 [facility] 12-08-2015 11:37-0400 Body Temperature 98.1 [degF] [facility] 12-08-2015 11:37-0400 BP Diastolic 60 mm[Hg] [facility] 12-08-2015 11:37-0400 BP Systolic 110 mm[Hg] [facility] 12-08-2015 11:37-0400 BSA (Body Surface Area) 1.84 m2 [facility] 12-08-2015 11:37-0400 Height 162.56 cm [facility] 12-08-2015 11:37-0400 Pulse (Heart Rate) 100 /min [facility] 12-08-2015 11:37-0400 Pulse Oximetry 98 % [facility] 12-08-2015 11:37-0400 Respiratory Rate 18 /min [facility] 12-08-2015 11:37-0400 Weight 75.35 kg [facility] 12-08-2015 10:37-0400 BMI (Body Mass Index) 28.52 kg/m2 [facility] 12-08-2015 10:37-0400 BMI (Body Mass Index) 28.51 kg/m2 [facility] 12-08-2015 10:37-0400 Body Temperature 98.1 [degF] [facility] 12-08-2015 10:37-0400 BP Diastolic 60 mm[Hg] [facility] 12-08-2015 10:37-0400 BP Systolic 110 mm[Hg] [facility] 12-08-2015 10:37-0400 BSA (Body Surface Area) 1.84 m2 [facility] 12-08-2015 10:37-0400 Height 162.56 cm [facility] 12-08-2015 10:37-0400 Pulse (Heart Rate) 100 /min [facility] 12-08-2015 10:37-0400 Pulse Oximetry 98 % [facility] 12-08-2015 10:37-0400 Respiratory Rate 18 /min [facility] 12-08-2015 10:37-0400 Weight 75.35 kg [facility] 10-25-2015 11:43-0400 BMI (Body Mass Index) 28.24 kg/m2 [facility] 10-25-2015 11:43-0400 Body Temperature 98.2 [degF] [facility] 10-25-2015 11:43-0400 BP Diastolic 70 mm[Hg] [facility] 10-25-2015 11:43-0400 BP Systolic 110 mm[Hg] [facility] 10-25-2015 11:43-0400 BSA (Body Surface Area) 1.84 m2 [facility] 10-25-2015 11:43-0400 Height 162.56 cm [facility] 10-25-2015 11:43-0400 Pulse (Heart Rate) 55 /min [facility] 10-25-2015 11:43-0400 Pulse Oximetry 99 % [facility] 10-25-2015 11:43-0400 Respiratory Rate 18 /min [facility] 10-25-2015 11:43-0400 Weight 74.62 kg [facility] 10-25-2015 10:43-0400 BMI (Body Mass Index) 28.24 kg/m2 [facility] 10-25-2015 10:43-0400 Body Temperature 98.2 [degF] [facility] 10-25-2015 10:43-0400 BP Diastolic 70 mm[Hg] [facility] 10-25-2015 10:43-0400 BP Systolic 110 mm[Hg] [facility] 10-25-2015 10:43-0400 BSA (Body Surface Area) 1.84 m2 [facility] 10-25-2015 10:43-0400 Height 162.56 cm [facility] 10-25-2015 10:43-0400 Pulse (Heart Rate) 55 /min [facility] 10-25-2015 10:43-0400 Pulse Oximetry 99 % [facility] 10-25-2015 10:43-0400 Respiratory Rate 18 /min [facility] 10-25-2015 10:43-0400 Weight 74.62 kg [facility] 09-22-2015 11:19-0400 BMI (Body Mass Index) 30.22 kg/m2 [facility] 09-22-2015 11:19-0400 Body Temperature 98.6 [degF] [facility] 09-22-2015 11:19-0400 BP Diastolic 78 mm[Hg] [facility] 09-22-2015 11:19-0400 BP Systolic 132 mm[Hg] [facility] 09-22-2015 11:19-0400 BSA (Body Surface Area) 1.81 m2 [facility] 09-22-2015 11:19-0400 Height 157.48 cm [facility] 09-22-2015 11:19-0400 Pulse (Heart Rate) 86 /min [facility] 09-22-2015 11:19-0400 Pulse Oximetry 98 % [facility] 09-22-2015 11:19-0400 Respiratory Rate 18 /min [facility] 09-22-2015 11:19-0400 Weight 74.96 kg [facility] 09-22-2015 10:19-0400 BMI (Body Mass Index) 30.22 kg/m2 [facility] 09-22-2015 10:19-0400 Body Temperature 98.6 [degF] [facility] 09-22-2015 10:19-0400 BP Diastolic 78 mm[Hg] [facility] 09-22-2015 10:19-0400 BP Systolic 132 mm[Hg] [facility] 09-22-2015 10:19-0400 BSA (Body Surface Area) 1.81 m2 [facility] 09-22-2015 10:19-0400 Height 157.48 cm [facility] 09-22-2015 10:19-0400 Pulse (Heart Rate) 86 /min [facility] 09-22-2015 10:19-0400 Pulse Oximetry 98 % [facility] 09-22-2015 10:19-0400 Respiratory Rate 18 /min [facility] 09-22-2015 10:19-0400 Weight 74.96 kg [facility] 09-08-2015 11:54-0400 BMI (Body Mass Index) 30.04 kg/m2 [facility] 09-08-2015 11:54-0400 BP Diastolic 70 mm[Hg] [facility] 09-08-2015 11:54-0400 BP Systolic 118 mm[Hg] [facility] 09-08-2015 11:54-0400 BSA (Body Surface Area) 1.81 m2 [facility] 09-08-2015 11:54-0400 Height 157.48 cm [facility] 09-08-2015 11:54-0400 Pulse (Heart Rate) 75 /min [facility] 09-08-2015 11:54-0400 Pulse Oximetry 97 % [facility] 09-08-2015 11:54-0400 Respiratory Rate 18 /min [facility] 09-08-2015 11:54-0400 Weight 74.5 kg [facility] 09-08-2015 10:54-0400 BMI (Body Mass Index) 30.04 kg/m2 [facility] 09-08-2015 10:54-0400 BP Diastolic 70 mm[Hg] [facility] 09-08-2015 10:54-0400 BP Systolic 118 mm[Hg] [facility] 09-08-2015 10:54-0400 BSA (Body Surface Area) 1.81 m2 [facility] 09-08-2015 10:54-0400 Height 157.48 cm [facility] 09-08-2015 10:54-0400 Pulse (Heart Rate) 75 /min [facility] 09-08-2015 10:54-0400 Pulse Oximetry 97 % [facility] 09-08-2015 10:[id number] Respiratory Rate 18 /min [facility] 09-08-2015 10:[id number] Weight 74.5 kg [facility] Encounters Encounter Date Encounter Type Care Provider Facility Start: 07-16-2023 End: 07-16-2023 ambulatory DAKOTA MACK Not Available Start: 07-16-2023 Bamboo flowsheet Dakota sifuentes MD Work Phone: [facility] Start: 07-16-2023 Bamboo flowsjorge sifuentes MD Work Phone: [facility] Start: 07-16-2023 End: 07-16-2023 Patient encounter procedure Dakota Mack MD Work Phone: [facility] Comment on above: Neoplasm of unspecif ied behavior of bone, soft tissue, and skin (Primary Dx) Start: 06-28-2023 End: 06-28-2023 ambulatory [facility] Facility:[facility] Start: 06-18-2023 End: 06-22-2023 ambulatory [facility] Facility:[facility] Start: 05-30-2023 End: 05-31-2023 ambulatory [facility] Facility:[facility] Start: 05-30-2023 End: 05-30-2023 ambulatory [facility] Start: 05-30-2023 Encounter for other preprocedural examination [facility] Start: 04-11-2023 End: 04-12-2023 ambulatory [facility] Facility:[facility] Start: 04-02-2023 ambulatory Karla Clark Facility :[facility] Start: 03-26-2023 End: 03-28-2023 ambulatory NON STAFF Facility:[facility] Start: 03-26-2023 End: 03-28-2023 Evaluation and management of inpatient FIRST COAT OPERATOR Karla Clark Work Phone: [facility] Work Phone: Start: 03-26-2023 End: 03-28-2023 observation encounter RODNEY Clark Work Phone: [facility] Work Phone: Start: 03-12-2023 End: 03-15-2023 Evaluation and management of inpatient Joe Davis Facility:[facility] Start: 03-11-2023 End: 03-15-2023 Evaluation and management of inpatient FIRST COAT OPERATOR Karla Clark Work Phone: [facility] Work Phone: Start: 03-11-2023 End: 03-11-2023 ambulatory Karla Clark Facility:[facility] Start: 03-11-2023 End: 03-11-2023 Departed Referred RODNEY Clark Work Phone: [facility] [place] Work Phone: Start: 01-30-2023 End: 01-31-2023 ambulatory [facility] Start: 12-12-2022 End: 12-12-2022 ambulatory Karla Clark Facility:[facility] Start: 12-12-2022 Office outpatient vi sit 15 minutes [facility] Start: 12-12-2022 End: 12-12-2022 ambulatory FIRST COAT OPERATOR Karla Clark Work Phone: [facility] Work Phone: Start: 12-12-2022 End: 12-12-2022 Patient encounter procedure FIRST COAT OPERATORStacy Clark Work Phone: [facility] Start: 11-19-2022 End: 02-28-2023 General Karla 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: [facility] Work Phone: Start: 11-19-2022 End: 02-28-2023 FQHC visit, estab pt Karla Amber STUDIO CAMERA OPERATOR Work Phone: [facility] Work Phone: Start: 10-31-2022 End: 10-31-2022 ambulatory Emory Adame Facility:[facility] Start: 10-31-2022 Postop follow up vis it related to original px [facility] Wendi [facility] Start: 10-31-2022 End: 10-31-2022 ambulatory PHYSICIAN NO [facility] Work Phone: Start: 10-31-2022 End: 10-31-2022 Patient encounter procedure PHYSICIAN NO [facility] Start: 10-31-2022 End: 10-31-2022 ambulatory REKHA MUNOZ Facility: Start: 2022 End: 2022 ambulatory Emory Adame Other [employer] [facility] [employer] Other Start: 2022 Telephone encounter [facility] TAYLOR [facility] Start: 10-23-2022 Registered Recurring RODNEY Clark Work Phone: [facility] [employer] Start: 10-05-2022 End: 10-05-2022 ambulatory Emory Adame Other [employer] Other Start: 10-05-2022 Telephone encounter Emory TAYLOR G [facility] Start: 10-03-2022 Postop follow up vis it related to original px Emory Wendi [facility] Start: 10-03-2022 End: 10-03-2022 ambulatory PHYSICIAN NO [employer] Other Start: 10-03-2022 End: 10-03-2022 Patient encounter procedure PHYSICIAN NO [facility] Start: 09-18-2022 End: 09-18-2022 FQHC visit, estab pt Karla 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: [facility] Work Phone: Start: 09-18-2022 End: 09-18-2022 General Karla 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: [facility] Work Phone: Start: 09-13-2022 End: 09-14-2022 ambulatory Karla Clark Facility:[facility] Start: 09-13-2022 End: 09-14-2022 Admission to same day surgery center PHYSICIAN NO [facility] [place] Start: 09-13-2022 End: 09-14-2022 ambulatory PHYSICIAN NO [facility] Work Phone: Start: 09-11-2022 Telephone encounter [facility] Start: 09-11-2022 End: 09-11-2022 ambulatory Karla Clark Facility:[facility] Start: 09-11-2022 End: 09-11-2022 ambulatory FIRST COAT OPERATOR Karla Clark Work Phone: [facility] Work Phone: Start: 09-11-2022 End: 09-11-2022 Patient encounter procedure RDONEY Clark Work Phone: [facility] Work Phone: Start: 09-10-2022 FQ visit new patient [facility] Start: 09-10-2022 End: 09-10-2022 ambulatory PHYSICIAN NO [facility] [employer] Other Start: 09-10-2022 End: 09-10-2022 Patient encounter procedure DO Emory Adame Work Phone: [facility] Start: 09-06-2022 End: 09-06-2022 ambulatory MS KARLA CLARK Facility: Start: 08-27-2022 End: 08-27-2022 General Carolin ATWOOD Work Phone: [facility] Work Phone: Start: 08-27-2022 End: 08-27-2022 Adult health examination Karla Amber CROOKS Work Phone: [facility] Work Phone: Start: 08-27-2022 End: 08-27-2022 FQHC visit, estab pt Karla Clark DAKSHA Work Phone: [facility] Work Phone: Start: 08-22-2022 End: 08-22-[address] DOCTOR CHAVEZ Facility:[facility] Start: 08-16-2022 End: 08-17-2022 ambulatory KARLA Alexey [facility]BER [facility] Start: 08-16-2022 End: 08-16-2022 Subsequent hospital visit by physician Karla Diaz CNP Work Phone: [facility] Laboratory Comment on above: Cutaneous candidiasi s; Screening for malignant neoplasm of cervix Start: 08-03-2022 End: 08-03-2022 ambulatory REKHA MUNOZ Facility:[facility] Start: 06-18-2022 End: 06-18-2022 FQHC visit, estab pt Karla Clark DAKSHA Work Phone: [facility] Work Phone: Start: 03-22-2022 End: 03-22-2022 FQHC visit, estab pt Yin Feliz [facility] Work Phone: [facility] Work Phone: Start: 03-20-2022 End: 03-20-2022 FQHC visit, estab pt [facility] Work Phone: [facility] Work Phone: Start: 03-06-2022 End: 03-07-2022 ambulatory KARLA [facility] Start: 03-06-2022 Encounter for other preprocedural examination [facility] Start: 03-06-2022 End: 03-06-2022 Preoperative state Mth Room [facility] Echocardiograph y Start: 03-06-2022 End: 03-06-2022 Subsequent hospital visit by physician [facility] Echo Room [facility] Echocardiography Comment on above: Pre-operative cleara nce; Abnormal EKG; History of NH (myocardial infarction) Start: 12-20-2021 End: 12-20-2021 FQ visit, estab pt Karla Clark CNP Work Phone: [facility] Work Phone: Start: 11-03-2021 End: 11-03-2021 FQ visit, estab pt Yin Feliz [facility] Work Phone: [facility] Work Phone: Start: 11-03-2021 End: 11-03-2021 FQ visit, estab pt Yin Feliz [facility] Work Phone: [facility] Work Phone: Start: 09-28-2021 End: 11-03-2021 Pre-admission assessment Deepti Lizzette Lorenza [facility] Start: 08-01-2021 End: 08-01-2021 Patient encounter status Karla Amber STEVENS - STUDIO CAMERA OPERATOR Work Phone: [facility] Laboratory Start: 08-01-2021 End: 08-03-2021 Subsequent hospital visit by physician [facility] Mri Scanner [facility] Laboratory Comment on above: Pre-procedure lab ex am Breast lump on right side at 4 o'clock position Start: 07-28-2021 End: 07-28-2021 FQ visit, estab pt Karla 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: [facility] Work Phone: Start: 05-08-2021 End: 05-08-2021 Adult health examination Karlajulius Clark CNP Work Phone: [facility] Work Phone: Start: 05-08-2021 End: 05-08-2021 FQHC visit, estab pt Karla Clark [facility] Work Phone: [facility] Work Phone: Start: 11-11-2020 End: 11-13-2020 Subsequent hospital visit by physician Frantz Manuel Radiologist [facility] Comment on above: History of breast bi opsy Start: 07-21-2020 End: 07-21-2020 Subsequent hospital visit by physician Karla Clark [facility] Start: 07-14-2020 End: 07-14-2020 Subsequent hospital visit by physician Karla Clark [facility] Start: 07-14-2020 End: 07-14-2020 Subsequent hospital visit by physician Karla Clark [facility] Start: 07-08-2020 End: 07-09-2020 ambulatory KARLA CLARK [facility] Start: 07-08-2020 End: 07-08-2020 Subsequent hospital visit by physician Karla Clark [facility] Start: 06-30-2020 End: 07-02-2020 Subsequent hospital visit by physician Frantz Lab Drawing Room [facility] Laboratory Comment on above: Arrived Hyperprolactinemia ( HCC) Start: 06-17-2020 End: 06-17-2020 Established patient Karla Clark Work Phone: [facility] Work Phone: Start: 06-08-2020 End: 06-10-2020 Subsequent hospital visit by physician Frantz Manuel Radiologist [facility] Comment on above: Abnormal ultrasound of breast; Lesion of breast Start: 06-08-2020 End: 06-10-2020 Subsequent hospital visit by physician Frantz Mammography [facility] Comment on above: Abnormal mammogram Start: 06-06-2020 End: 06-06-2020 Established patient Karla Clark Work Phone: [facility] Work Phone: Start: 06-06-2020 End: 06-06-2020 Subsequent hospital visit by physician Karla Clark [facility] Start: 05-06-2020 End: 05-06-2020 Patient encounter procedure Karla Clark Work Phone: [facility] Work Phone: Start: 04-04-2020 End: 04-06-2020 Subsequent hospital visit by physician [facility] Ultrasound Room [facility] Comment on above: Abnormal mammogram Start: 03-31-2020 End: 04-01-2020 ambulatory KARLA Blackburn AMBER [facility] Start: 03-31-2020 End: 03-31-2020 Subsequent hospital visit by physician Karla THORNTON [facility] Start: 03-31-2020 End: 03-31-2020 Established patient Karla Clark Work Phone: [facility] Work Phone: Start: 03-14-2020 End: 03-14-2020 Nursing evaluation of patient and report Karla Clark Work Phone: [facility] Work Phone: Start: 03-10-2020 End: 03-11-2020 ambulatory KARLA CLARK [facility] Start: 03-10-2020 End: 03-10-2020 Subsequent hospital visit by physician Karla THORNTON [facility] Start: 03-04-2020 End: 03-04-2020 Patient encounter procedure Karla Clark Work Phone: [facility] Work Phone: Start: 02-26-2020 End: 02-26-2020 Patient encounter procedure Karla Clark Work Phone: [facility] Work Phone: Start: 02-26-2020 End: 02-26-2020 Established patient Karla Clark Work Phone: [facility] Work Phone: Start: 11-19-2019 End: 11-19-2019 Patient encounter procedure Carolin Oneill Work Phone: [facility] Work Phone: Start: 11-19-2019 End: 11-19-2019 Telemedicine consultation with patient Karla Clark Work Phone: [facility] Work Phone: Start: 08-31-2019 End: 08-31-2019 Telemedicine consultation with patient Karla Clark Work Phone: [facility] Work Phone: Start: 08-03-2019 End: 08-03-2019 Subsequent hospital visit by physician Karla [facility] Start: 07-23-2019 End: 07-23-2019 Established patient Karla Clark Work Phone: [facility] Work Phone: Start: 06-05-2019 End: 06-05-2019 Patient encounter procedure Karla Clark Work Phone: [facility] Work Phone: Start: 05-28-2019 End: 05-28-2019 Patient encounter procedure Telma Connor Work Phone: [facility] Work Phone: Start: 04-23-2019 End: 04-23-2019 ambulatory Karla Clark Work Phone: [facility] Work Phone: Start: 04-15-2019 End: 04-15-2019 Established patient Brandy Kelley Work Phone: [facility] Work Phone: Start: 04-10-2019 End: 04-12-2019 Subsequent hospital visit by physician Frantz Gen Radiologist [facility] Comment on above: Abnormal mammogram o f left breast Start: 03-11-2019 End: 03-13-2019 Subsequent hospital visit by physician Frantz Ultrasound Room [facility] Comment on above: Duct ectasia of jr st, left Start: 03-05-2019 End: 03-05-2019 Established patient Karla Clark Work Phone: [facility] Work Phone: Start: 02-16-2019 End: 02-18-2019 Subsequent hospital visit by physician Frantz Leyva Dr Room 2 [facility] Comment on above: Right foot pain Start: 12-22-2018 End: 12-22-2018 Established patient Karla Clark Work Phone: [facility] Work Phone: Start: 11-11-2018 End: 11-11-2018 Patient encounter procedure Karla Clark Work Phone: [facility] Work Phone: Start: 11-06-2018 End: 11-06-2018 Established patient Karla Clark Work Phone: [facility] Work Phone: Start: 09-11-2018 End: 09-11-2018 Established patient Karla Clark Work Phone: [facility] Work Phone: Start: 09-11-2018 End: 09-11-2018 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 Karla 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: [facility] Work Phone: Start: 09-04-2018 End: 09-04-2018 Established patient Karla Clark Work Phone: [facility] Work Phone: Start: 09-04-2018 End: 09-04-2018 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 Karla 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: [facility] Work Phone: Start: 07-31-2018 End: 07-31-2018 Established patient Karla Clark Work Phone: [facility] Work Phone: Start: 05-08-2018 Office outpatient vi sit 15 minutes Karla Amber Other [facility] Start: 05-08-2018 End: 05-08-2018 Patient encounter procedure Karla 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: [facility] Work Phone: Start: 03-20-2018 End: 03-20-2018 Patient encounter procedure Conversion Provider Work Phone: [facility] Work Phone: Start: 03-20-2018 Office outpatient vi sit 5 minutes Karla Clark Other [facility] Start: 02-13-2018 Medical Karla Clark Other [facility] Start: 02-13-2018 End: 02-13-2018 Office outpatient visit 5 minutes Karla Amber Other [facility] Start: 02-13-2018 Evaluation and manag ement of established outpatient in office or other outpatient facility Karla Clark [facility] Start: 02-11-2018 Medical Karla Amber Other [facility] Start: 02-11-2018 End: 02-11-2018 Office outpatient visit 5 minutes Karla Amber Other [facility] Start: 02-11-2018 End: 02-11-2018 Patient encounter procedure Karla Amber STUDIO CAMERA OPERATOR Work Phone: [facility] Work Phone: Start: 12-19-2017 End: 12-19-2017 Office outpatient visit 15 minutes Karla Amber Other [facility] Start: 12-19-2017 End: 12-19-2017 Patient encounter procedure Karla Amber STUDIO CAMERA OPERATOR Work Phone: [facility] Work Phone: Start: 10-08-2017 End: 10-08-2017 Patient encounter procedure Karla Amber STUDIO CAMERA OPERATOR Work Phone: [facility] Work Phone: Start: 10-08-2017 End: 10-08-2017 Office outpatient visit 15 minutes Karla Amber Other [facility] Start: 09-17-2017 End: 09-17-2017 Patient encounter procedure Karla Clark CNP Work Phone: [facility] Work Phone: Start: 09-17-2017 Laboratory examinati on, unspecified Karla Clark [facility] Start: 09-17-2017 Physical examination Karla Quin[facility] Start: 09-17-2017 Comprehensive metabo lic panel Karla Clark [facility] Start: 09-17-2017 End: 09-17-2017 Office outpatient visit 15 minutes Karla Clark Other [facility] Start: 07-30-2017 End: 07-30-2017 Periodic preventive med est patient 40-64yrs Karla Clark Other [facility] Start: 05-14-2017 End: 05-14-2017 Office outpatient visit 15 minutes Karla Clark Other [facility] Start: 04-18-2017 End: 04-18-2017 Medical Karla Clark Other [facility] Start: 03-07-2017 End: 03-07-2017 Evaluation and management of established outpatient in office or other outpatient facility Karla Clark [facility] Start: 03-07-2017 End: 03-07-2017 TB Read Karla Clark Other [facility] Start: 03-05-2017 Physical examination Karla Quinones [facility] Start: 03-05-2017 End: 03-05-2017 Office outpatient visit 15 minutes Karla Clark Other [facility] Start: 03-05-2017 Tobacco use cessatio n intensive >10 minutes Karlajulius Clark [facility] Start: 01-01-2017 Ct head/brain w/o & w/contrast [facility] Start: 01-01-2017 End: 01-01-2017 Office outpatient visit 15 minutes Karla Clark Other [facility] Start: 12-06-2016 End: 12-06-2016 Office outpatient visit 15 minutes Karla Clark Other [facility] Start: 11-06-2016 End: 11-06-2016 Office outpatient visit 15 minutes Karla Clark Other [facility] Start: 11-06-2016 Urinalysis qual/semi quant except immunoassays [facility] Start: 09-27-2016 End: 09-27-2016 Office outpatient visit 15 minutes Karla Clark Other [facility] Start: 08-21-2016 End: 08-21-2016 Office outpatient visit 15 minutes Karla Clark Other [facility] Start: 06-26-2016 End: 06-26-2016 Office outpatient visit 15 minutes Karla Clark Other [facility] Start: 06-26-2016 Tobacco use cessatio n intermediate 3-10 minutes Karlajulius Clark [facility] Start: 06-12-2016 End: 06-12-2016 Office outpatient visit 15 minutes Karla Clark Other [facility] Start: 05-22-2016 End: 05-22-2016 Office outpatient visit 25 minutes Karlajulius Clark Other [facility] Start: 04-10-2016 End: 04-10-2016 Office outpatient visit 15 minutes Karla Clark Other [facility] Start: 03-20-2016 Tobacco use cessatio n intermediate 3-10 minutes [facility] Start: 03-20-2016 End: 03-20-2016 Office outpatient visit 15 minutes Karla Clark Other [facility] Start: 03-09-2016 Evaluation and manag ement of established outpatient in office or other outpatient facility [facility] Start: 03-09-2016 End: 03-09-2016 Office outpatient visit 5 minutes Karla Clark Other [facility] Start: 03-06-2016 End: 03-06-2016 Office outpatient visit 15 minutes Karla Clark Other [facility] Start: 02-21-2016 End: 02-21-2016 Office outpatient visit 15 minutes Karla Clark Other [facility] Start: 01-12-2016 Tobacco use cessatio n intermediate 3-10 minutes [facility] Start: 01-11-2016 End: 01-11-2016 Office outpatient visit 15 minutes Karla Clark Other [facility] Start: 12-08-2015 End: 12-08-2015 Office outpatient visit 15 minutes Karla Clark Other [facility] Start: 10-25-2015 Culture bct isol&prs mptv id isolate ea urine [facility] Start: 10-25-2015 End: 10-25-2015 Office outpatient visit 15 minutes Karla Clark Other [facility] Start: 09-22-2015 End: 09-22-2015 Office outpatient visit 15 minutes Karla Clark Other [facility] Start: 09-08-2015 Iadna chlamydia trachomatis amplified probe tq [facility] Start: 09-08-2015 End: 09-08-2015 Office outpatient visit 15 minutes Karla Clark Other [facility] Procedures Date Procedure Procedure Detail Performing Clinician Start: 07-16-2023 SKIN / NAIL BIOPSY Dakota Mack MD Work Phone: Start: 03-26-2023 CT of abdomen and pelvis without contrast FIRST COAT OPERATOR Karla Clark Work Phone: Start: 03-14-2023 Computed tomography of abdomen and pelvis with contrast FIRST COAT OPERATOR Karla Clark Work Phone: Start: 03-12-2023 Urine culture FIRST COAT OPERATOR Karla Clark Work Phone: Start: 02-28-2023 Asthma Control Test/Baseline Evaluation Lina Penix STUDIO CAMERA OPERATOR Work Phone: Start: 02-28-2023 Current tobacco smoker Lina Penix STUDIO CAMERA OPERATOR Work Phone: Start: 02-28-2023 [facility]QHC visit, estab pt Lina Penix STUDIO CAMERA OPERATOR Work Phone: Start: 02-28-2023 Most recent diastolic blood pressure < 80 mm hg Lina Penix STUDIO CAMERA OPERATOR Work Phone: Start: 02-28-2023 Most recent systolic blood pressure <130 mm hg Lina Penix STUDIO CAMERA OPERATOR Work Phone: Start: 02-28-2023 Pt scrnd tobacco use rcvd tobacco cessation talk Lina Penix STUDIO CAMERA OPERATOR Work Phone: Start: 02-28-2023 Screening for malignant neoplasm of breast Visit For: Screening Exam Malignant Neoplasm Breast Lina Penix STUDIO CAMERA OPERATOR Work Phone: Start: 12-12-2022 Plain X-ray of right shoulder FIRST COAT OPERATOR Karla Amber Work Phone: Start: 11-19-2022 Current tobacco smoker Karla 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: Start: 11-19-2022 FQHC visit, estab pt Karla 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: Start: 11-19-2022 Most recent diastolic blood pressure < 80 mm hg Karla 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: Start: 11-19-2022 Most recent systolic blood press 130-139mm hg Karla Amber STUDIO CAMERA OPERATOR Work Phone: Start: 10-31-2022 Plain X-ray of right shoulder PHYSICIAN NO FAMILY Start: 10-03-2022 Plain X-ray of right shoulder PHYSICIAN NO FAMILY Start: 09-21-2022 Surgical procedure Karla 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: Start: 09-18-2022 Current tobacco smoker Karla 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: Start: 09-18-2022 FQHC visit, estab pt Karla 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: Start: 09-18-2022 Most recent diastolic blood pressure < 80 mm hg Karla 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: Start: 09-18-2022 Most recent systolic blood pres>/equal 140 mm hg Karla 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: Start: 09-18-2022 Pt scrnd tobacco use rcvd tobacco cessation talk Karla 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: Start: 09-13-2022 Plain X-ray of right shoulder PHYSICIAN NO FAMILY Start: 09-13-2022 Plain X-ray of right shoulder PHYSICIAN NO FAMILY Start: 09-13-2022 Open reduction of fracture with internal fixation PHYSICIAN NO FAMILY Start: 09-10-2022 Plain X-ray of right shoulder DO Emory Adame Work Phone: Start: 08-27-2022 Current tobacco smoker Karla 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: Start: 08-27-2022 FQHC visit, estab pt Karla 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: Start: 08-27-2022 Most recent diastolic blood pressure < 80 mm hg Karla 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: Start: 08-27-2022 Most recent systolic blood pressure <130 mm hg Karla 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: Start: 06-18-2022 Current tobacco smoker Karla 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: Start: 06-18-2022 FQHC visit, estab pt Karla 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: Start: 06-18-2022 Gluc bld gluc mntr dev cleared fda spec home use Karla Clark CNP Work Phone: Start: 06-18-2022 Most recent diastolic blood pressure < 80 mm hg Karla Clark CNP Work Phone: Start: 06-18-2022 Most recent systolic blood pressure <130 mm hg Karla Clark CNP Work Phone: Start: 06-18-2022 Pt-focused hlth risk assmt score doc stnd instrm Karla Clark CNP Work Phone: Start: 03-20-2022 [facility] visit, MH estab pt Yin alexander LPCC-S Work Phone: Start: 03-20-2022 Most recent diastolic blood pressure 80-89 mm hg Karla Clark CNP Work Phone: Start: 03-20-2022 Most recent systolic blood pressure <130 mm hg Karla Clark CNP Work Phone: Start: 03-20-2022 Psychotherapy w/patient 30 minutes Yin Feliz LPCC-S Work Phone: Start: 12-20-2021 Antibody hiv-1&hiv-2 single result Karla Clark CNP Work Phone: Start: 12-20-2021 Current tobacco smoker Karla Clark CNP Work Phone: Start: 12-20-2021 FQHC visit, estab pt Karla Clark CNP Work Phone: Start: 12-20-2021 Most recent diastolic blood pressure 80-89 mm hg Karla Clark CNP Work Phone: Start: 12-20-2021 Most recent systolic blood press 130-139mm hg Karla Clark CNP Work Phone: Start: 12-20-2021 Pt scrnd tobacco use rcvd tobacco cessation talk Karla Clrak CNP Work Phone: Start: 11-03-2021 Psychotherapy w/patient 30 minutes [facility] Work Phone: Start: 08-10-2021 Microscopic observation [Identifier] in Cervix by Cyto stain [facility] Start: 08-01-2021 Mri breast without&with contrast w/cad bilateral She Ann-Marie Spencer FIRST COAT OPERATOR - CNM Work Phone: Start: 08-01-2021 Creatinine blood She Snyderemil Spencer FIRST COAT OPERATOR - CNM Work Phone: Start: 07-28-2021 Pt scrnd tobacco use rcvd tobacco cessation talk Karla 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: Start: 05-08-2021 Blood occult fecal hgb deter ia qual feces 1-3 Karla 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: Start: 05-08-2021 Most recent diastolic blood pressure < 80 mm hg Karla 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: Start: 05-08-2021 Most recent systolic blood press 130-139mm hg Karlajulius 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: Start: 11-11-2020 Diagnostic mammography computer-aided detcj bi She Ann-Marie Spencer FIRST COAT OPERATOR - CNM Work Phone: Start: 07-21-2020 Drug screen quantitative lithium Pinky Bakies Work Phone: Start: 07-14-2020 Drug screen quantitative lithium Pinky Bakies Work Phone: Start: 07-14-2020 Lipid panel Lolis Mccormick Work Phone: Start: 07-08-2020 Blood count complete auto&auto difrntl wbc Karla Alexey Amber Work Phone: Start: 07-08-2020 Comprehensive metabolic panel Karla Alexey Amber Work Phone: Start: 07-08-2020 Lipid panel Karla Clark Work Phone: Start: 07-08-2020 Urinalysis microscopic only Karla dinh Work Phone: Start: 07-08-2020 Urnls dip stick/tablet rgnt auto w/o microscopy Karla Clark Work Phone: Start: 06-30-2020 Mri brain brain stem w/o w/contrast material Karla Clark Work Phone: Start: 06-30-2020 Assay of urea nitrogen quantitative Karla Clark Work Phone: Start: 06-30-2020 Creatinine blood Karla Clark Work Phone: Start: 06-08-2020 Level iv surg pathology gross&microscopic exam Billy Ojeda Work Phone: Start: 06-08-2020 Diagnostic mammography computer-aided detcj uni Billy Ojeda Work Phone: Start: 06-08-2020 Implantable tissue marker Billy carty Work Phone: Start: 06-06-2020 Assay of prolactin Rekha Ribeirokendra Work Phone: Start: 05-06-2020 Current tobacco smoker Karla Clark Work Phone: Start: 05-06-2020 Diast bp <80 mm hg Karla Clark Work Phone: Start: 05-06-2020 Hg a1c level lt 7.0% Karla Clark Work Phone: Start: 05-06-2020 Iaad ia hiv-1 ag w/hiv-1 & hiv-2 antbdy single Karla Clark Work Phone: Start: 05-06-2020 Pt tobacco screen rcvd tlk Karla Clark Work Phone: Start: 05-06-2020 Spmtry w/vc expiratory chan w/wo mxml vol vntj Karla Clark Work Phone: Start: 05-06-2020 Syst bp lt 130 mm hg Karla Clark Work Phone: Start: 04-04-2020 Us breast uni real time with image complete Billy Ojeda Work Phone: Start: 04-04-2020 Diagnostic mammography computer-aided detcj bi Billy Ojeda Work Phone: Start: 03-31-2020 Assay of urea nitrogen quantitative KARLA CLARK Start: 03-31-2020 Assay of urea nitrogen quantitative Karla Clark Work Phone: Start: 03-31-2020 Creatinine blood Karla Clark Work Phone: Start: 03-31-2020 Current tobacco smoker Karla Clark Work Phone: Start: 03-31-2020 Hemoglobin glycosylated a1c Karla Clark Work Phone: Start: 03-31-2020 Pt-focused hlth risk assmt score doc stnd instrm Karla Clark Work Phone: Start: 03-10-2020 Blood count complete auto&auto difrntl wbc KARLA CLARK Start: 03-10-2020 Lipid panel KARLA CLARK Start: 03-10-2020 Assay of thyroid stimulating hormone tsh Karla Clark Work Phone: Start: 03-10-2020 Blood count complete auto&auto difrntl wbc Karla Clark Work Phone: Start: 03-10-2020 Comprehensive metabolic panel Karla Clark Work Phone: Start: 03-10-2020 Lipid panel Karla Clark Work Phone: Start: 08-31-2019 Patient gave verbal consent for telehealth Karla Clark Start: 08-03-2019 Assay of thyroid stimulating hormone tsh Rekha Munoz Work Phone: Start: 08-03-2019 Creatinine blood Rekha Munoz Work Phone: Start: 08-03-2019 Drug screen quantitative lithium Rekha Munoz Work Phone: Start: 08-03-2019 Glucose quantitative blood xcpt reagent strip Rekha Munoz Work Phone: Start: 08-03-2019 Lipid panel Rekha Fernanda Munoz Work Phone: Start: 07-23-2019 Diast bp 80-89 mm hg Karla Clark Work Phone: Start: 07-23-2019 Syst bp lt 130 mm hg Karla Clark Work Phone: Start: 06-05-2019 Diast bp 80-89 mm hg Karla Clark Work Phone: Start: 06-05-2019 Hg a1c level lt 7.0% Karla Clark Work Phone: Start: 06-05-2019 Syst bp lt 130 mm hg Karla Clark Work Phone: Start: 04-23-2019 Diast bp <80 mm hg Karla Clark Work Phone: Start: 04-23-2019 Hg a1c level lt 7.0% Karla Clark Work Phone: Start: 04-23-2019 Syst bp lt 130 mm hg Karla Clark Work Phone: Start: 04-15-2019 Diast bp <80 mm hg Brandy Kelley Work Phone: Start: 04-15-2019 Syst bp lt 130 mm hg Brandy Kelley Work Phone: Start: 04-15-2019 Therapeutic prophylactic/dx injection subq/im Brandy Kelley Work Phone: Start: 04-10-2019 Us breast uni real time with image limited Billy Ojeda Work Phone: Start: 03-11-2019 Us breast uni real time with image complete She Spencer Work Phone: Start: 03-05-2019 Hemoglobin glycosylated a1c Karla Clark Work Phone: Start: 03-05-2019 Pt-focused hlth risk assmt score doc stnd instrm Karla Clark Work Phone: Start: 03-05-2019 Removal impacted cerumen instrumentation unilat Karla Clark Work Phone: Start: 02-16-2019 Radex foot complete minimum 3 views Kirit Garsia Work Phone: Start: 11-12-2018 Hysterectomy Karlajulius Clark Start: 11-11-2018 Hysterectomy Karla Amber Start: 11-11-2018 Total abdominal hysterect w/wo rmvl tube ovary Karla Clark Start: 11-06-2018 Adult health examination Assessment of Routine History and Physical Adult (18 - 64 Yrs) Karla Clark Start: 09-11-2018 Adult health examination Assessment of Routine History and Physical Adult (18 - 64 Yrs) Karla Clark Start: 09-04-2018 Adult health examination Assessment of Routine History and Physical Adult (18 - 64 Yrs) Karla Clark Start: 09-04-2018 Diast bp >/= 90 mm hg Karla Amber Work Phone: Start: 09-04-2018 Syst bp >/= 140 mm hg Karla Clark Work Phone: Start: 07-31-2018 ABNORMAL ELECTROCARDIOGRAM Karla Amber STUDIO CAMERA OPERATOR Work Phone: Start: 07-31-2018 ASTHMA Karla 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: Start: 07-31-2018 BIPOLAR DISORDER NOS Karla Amber STUDIO CAMERA OPERATOR Work Phone: Start: 07-31-2018 CARDIOVASCULAR DISORDERS Karla Amber CN P Work Phone: Start: 07-31-2018 DEPRESSION Karla Amber STUDIO CAMERA OPERATOR Work Phone: Start: 07-31-2018 PSYCHIATRIC DISORDERS Karla Amber STUDIO CAMERA OPERATOR Work Phone: Start: 07-31-2018 RESPIRATORY DISORDERS Karla Amber STUDIO CAMERA OPERATOR Work Phone: Start: 07-31-2018 Urnls dip stick/tablet rgnt non-auto w/o micrscp Karla Clark Work Phone: Start: 02-28-2018 Colorectal Screening Results in Chart Karla Clark Start: 02-11-2018 Skin test tuberculosis intradermal Karla Clark Start: 11-19-2017 Screening mammography bi 2-view breast inc cad Karla Clark Start: 09-17-2017 Assay of free thyroxine Karla Clark Start: 09-17-2017 Assay of thyroid stimulating hormone tsh Karla Clark Start: 09-17-2017 Blood count complete auto&auto difrntl wbc Karla Clark Start: 09-17-2017 End: 09-17-2017 Comprehensive metabolic panel Karla Clark Start: 09-17-2017 Lipid panel Karla Clark Start: 09-17-2017 End: 09-17-2017 Iaadiadoo streptococcus group a Karla Clark Start: 05-29-2017 Dermatology. Karla Clark Start: 04-18-2017 End: 04-18-2017 Hemoglobin glycosylated a1c Karla Clark Start: 04-18-2017 Pt-focused hlth risk assmt score doc stnd instrm Karla Clark Start: 03-05-2017 Skin test tuberculosis intradermal Karla Clark Start: 01-01-2017 End: 01-01-2017 Ct head/brain w/o & w/contrast material Karla Clark Start: 01-01-2017 End: 01-01-2017 HIV SCREENING *in-house* Karla Clark Start: 12-06-2016 End: 12-06-2016 HIV SCREENING *in-house* Karla Clark Start: 11-06-2016 Culture bacterial quanttative colony count urine Karla Clark Start: 11-06-2016 End: 11-06-2016 Urinalysis qual/semiquant except immunoassays Karla Clark Start: 11-06-2016 End: 11-06-2016 Urnls dip stick/tablet rgnt non-auto w/o micrscp Karla Clark Start: 09-11-2016 Colorectal Screening Obtain Results Karla Clark Start: 09-11-2016 OBTAIN MAMMORGRAM RESULTS Karla Clark Start: 08-21-2016 Physical Therapy. Karla Clark Start: 07-31-2016 Assay of free thyroxine Karla Clark Start: 07-31-2016 Assay of thyroid stimulating hormone tsh Karla Clark Start: 07-31-2016 Blood count complete automated Karla Clark Start: 07-31-2016 Comprehensive metabolic panel Karla Clark Start: 07-31-2016 Hemoglobin glycosylated a1c Karla Calrk Start: 07-31-2016 Lipid panel Karla Clark Start: 05-15-2016 Neurology. Karla Clark Start: 01-11-2016 PHQ9 Administered Karla Clark Start: 01-11-2016 SBIRT- Full Screen *POSITIVE* Referred to Provider Karla Amber Start: 12-08-2015 End: 12-08-2015 Urnls dip stick/tablet rgnt non-auto w/o micrscp Karla Amber Start: 10-25-2015 End: 10-25-2015 Culture bct isol&prsmptv id isolate ea urine Karla Amber Start: 10-25-2015 End: 10-25-2015 Urnls dip stick/tablet rgnt non-auto w/o micrscp Karla Amber Start: 09-22-2015 Pap not indicated Karla Amber Start: 09-08-2015 Assay of free thyroxine Karla Clark Start: 09-08-2015 Assay of thyroid stimulating hormone tsh Karla Amber Start: 09-08-2015 Colorectal Screening Results in Chart Karla Clark Start: 09-08-2015 Glucose quantitative blood xcpt reagent strip Karla Amber Start: 09-08-2015 Hemoglobin glycosylated a1c Karla Clark Start: 09-08-2015 End: 09-08-2015 Iadna chlamydia trachomatis amplified probe tq Karla Amber Start: 09-08-2015 Iadna neisseria gonorrhoeae amplified probe tq Karla Amber Start: 09-08-2015 Lipid panel Karla Amber Start: 09-08-2015 Obtain Mammogram Results Karla Amber Start: 09-08-2015 End: 09-08-2015 HIV SCREENING *in-house* Karla Amber Start: 09-08-2015 End: 09-08-2015 Peak expiratory flow rate (p Karla Mahendra n Hysterectomy Deepti Britt Ligation of fallopian tube H sukhwinder Britt Plan of Treatment Date Care Activity Detail Author Start: 12-28-2027 DTaP/Tdap/Td vaccine (2 - Td or Tdap) DTaP/Tdap/Td vaccine (2 - Td or Tdap) [facility] Start: 12-28-2027 DTaP/Tdap/Td vaccine (3 - Td or Tdap) DTaP/Tdap/Td vaccine (3 - Td or Tdap) CHARLY ALMEIDA [facility] Start: 12-28-2027 DTaP/Tdap/Td vaccine (3 - Td) DTaP/Tdap/Td vaccine (3 - Td) [place], [place] Start: 11-25-2025 Lipid panel Lipids [facility] Start: 07-14-2025 Lipid panel Lipid screen [facility] Start: 07-08-2025 Lipid panel Lipid screen [facility] Work Phone: Start: 03-10-2025 Lipid panel Lipid screen [place], [place] Start: 08-10-2024 Screening for malignant neoplasm of cervix [facility] Start: 08-02-2024 Lipid panel Lipid screen [place], [place] Start: 11-15-2023 Lipid screen Lipid screen [place] Start: 08-27-2023 End: 08-27-2023 Patient encounter procedure 08/27/2023 Office Visit Obstetrics and Gynecology She Spencer, FIRST COAT OPERATOR - CNM [address] [place] [address] [facility] OBSTETRICS & GYNECOLOGY [facility] Start: 07-16-2023 End: 07-16-2023 Patient encounter procedure 07/16/2023 1:20 PM EST Office Visit [facility] [address] [place] [address] Dakota Mack MD [address] [place] [address] Arrived [facility] Comment on above: Arrived Start: 07-11-2023 End: 07-11-2023 Patient encounter procedure 07/11/2023 Office Visit Cardiology Juju Irby PA-C [address] [place] [address] [facility] CARDIOLOGY [facility] Start: 05-23-2023 FQHC visit, estab pt Medical Established Patient [facility] Work Phone: Start: 04-20-2023 Urinalysis [facility] Start: 03-30-2023 Mammography Mammogram - Screening ([id number]) [facility] Start: 03-28-2023 FQHC visit, estab pt Medical Established Patient [facility] Work Phone: Start: 03-28-2023 [facility] Start: 03-26-2023 Urine culture Urine Culture [facility] Start: 03-26-2023 Referral to clinical probation agent [facility] Start: 03-26-2023 Hospital admission [facility] Start: 03-15-2023 [facility] Start: 03-13-2023 Referral to clinical probation agent [facility] Start: 03-12-2023 Hospital admission [facility] Start: 03-12-2023 [facility] Start: 03-01-2023 FQHC visit, estab pt Medical Established Patient [facility] Work Phone: Start: 02-28-2023 FQHC visit, estab pt Medical Established Patient [facility] Work Phone: Start: 02-28-2023 End: 02-28-2023 Patient education based on identified need [facility] Start: 11-19-2022 End: 11-19-2022 Patient education based on identified need [facility] Start: 11-13-2022 FQHC visit, estab pt Medical Established Patient [facility] Work Phone: Start: 09-18-2022 FQHC visit, estab pt Medical Established Patient [facility] Work Phone: Start: 09-18-2022 End: 09-18-2022 Patient education based on identified need [facility] Start: 09-13-2022 [facility] Start: 09-01-2022 CBC W Auto Differential panel - Blood [facility] Start: 09-01-2022 Lipid 1996 panel - Serum or Plasma LIPID PROFILE [facility] Start: 08-27-2022 End: 08-27-2022 Patient education based on identified need [facility] Start: 08-27-2022 End: 08-27-2022 Provider instructions for treatment Intervention and counseling on cessation of tobacco use, 3-10 minutes Discussed medication and nicotine replacement for tobacco cessation [facility] Start: 08-16-2022 End: 08-16-2022 Patient encounter procedure 08/16/2022 Office Visit Obstetrics and Gynecology She Spencer, RODNEY - CNM [address] [place] [address] [facility] OBSTETRICS & GYNECOLOGY [facility] Start: 07-04-2022 End: 07-04-2022 Patient encounter procedure 07/04/2022 Office Visit Cardiology Juju Irby PA-C [address] [place] [address] [facility] CARDIOLOGY [facility] Start: 06-26-2022 FQHC visit, estab pt Medical Established Patient [facility] Work Phone: Start: 06-18-2022 End: 06-18-2022 Patient education based on identified need [facility] Start: 05-08-2022 Screening for malignant neoplasm of colon [facility] Start: 03-20-2022 End: 03-20-2022 Patient education based on identified need [facility] Start: 01-10-2022 Annual Wellness Visit (AWV) Annual Wellness Visit (AWV) [facility] Start: 01-01-2022 Influenza vaccination Flu vaccine (#1) [facility] Start: 12-20-2021 End: 12-20-2021 Patient education based on identified need [facility] Start: 12-15-2021 FQHC visit, estab pt Medical Established Patient [facility] Work Phone: Start: 11-11-2021 Screening for malignant neoplasm of breast Breast cancer screen [facility] Start: 11-03-2021 Cardiology [facility] Work Phone: Comment on above: Note: Please make a referral to: Start: 11-03-2021 End: 11-03-2021 Patient education based on identified need [facility] Start: 10-10-2021 COVID-19 Vaccine (4 - Booster for Moderna series) COVID-19 Vaccine (4 - Booster for Moderna series) [facility] Start: 08-15-2021 End: 08-15-2021 Patient encounter procedure 08/15/2021 Office Visit Obstetrics and Gynecology She Spencer, FIRST COAT OPERATOR - CNM [address] [place] [address] [facility]OLOG[facility] Start: 08-14-2021 CBC W Auto Differential panel - Blood [facility] Start: 08-10-2021 End: 08-10-2021 Patient encounter procedure 08/10/2021 Office Visit Obstetrics and Gynecology She Spencer APRN - CNAlexey [address] [place] [address] [facility] OBSTETRICS & GYNECOLOGY [facility] Start: 08-07-2021 COVID-19 Vaccine (4 - Booster for Moderna series) COVID-19 Vaccine (4 - Booster for Moderna series) [facility] Start: 07-28-2021 ENT [facility] Work Phone: Comment on above: Note: Please make a referral to: aliyah GUPTA Start: 07-28-2021 End: 07-28-2021 Patient education based on identified need [facility] Start: 07-28-2021 End: 07-28-2021 Provider instructions for treatment Intervention and counseling on cessation of tobacco use, 3-10 minutes Discussed medication and nicotine replacement for tobacco cessation [facility] Start: 07-03-2021 COVID-19 Vaccine (2 - Pfizer 3-dose series) COVID-19 Vaccine (2 - Pfizer 3-dose series) [facility] Start: 06-08-2021 Screening for malignant neoplasm of breast Breast cancer [facility] [facility] [place] Start: 05-15-2021 CBC W Auto Differential panel - Blood [facility] Start: 05-15-2021 Lipid 1996 panel - Serum or Plasma LIPID PROFILE [facility] Start: 05-08-2021 End: 05-08-2021 Patient education based on identified need [facility] Start: 05-01-2021 End: 05-01-2021 Patient encounter procedure 05/01/2021 Office Visit Neurology Bhupinder Iniguez MD [address] [place] [address] [facility] Start: 04-04-2021 Screening for malignant neoplasm of breast Breast cancer screen [place], [place] Start: 03-31-2021 Hemoglobin A1c measurement A1C test (Diabetic or Prediabetic) [facility] Start: 03-31-2021 Pneumococcal 65+ years Vaccine (2 - PPSV23 if available, else PCV20) Pneumococcal 65+ years Vaccine (2 - PPSV23 if available, else PCV20) [facility] Start: 03-31-2021 Pneumococcal 65+ years Vaccine (2 - PPSV23 or PCV20) Pneumococcal 65+ years Vaccine (2 - PPSV23 or PCV20) [facility] Start: 02-01-2021 Influenza vaccination Flu vaccine (#1) [facility] Start: 01-29-2021 Cervical cancer screen Cervical cancer screen [place], [place] Start: 01-29-2021 Screening for malignant neoplasm of cervix Cervical cancer screen [place], [place] Start: 10-17-2020 End: 10-17-2020 Office Visit 10/17/2020 Office Visit Neurology Bhupinder Iniguez MD [address] [place] [address] [facility] Start: 08-11-2020 End: 08-11-2020 Office Visit 08/11/2020 Office Visit Obstetrics and Gynecology She Spencer APRN - ADAM [address] [place] [address] [facility] Start: 07-17-2020 [facility] Work Phone: Start: 07-12-2020 End: 07-12-2020 Office Visit 07/12/2020 Office Visit General Surgery Billy Ojeda MD [address] [facility] [address] [place] [address] [phone] [facility] GENERAL SURGERY [facility] Start: 07-07-2020 CBC W Auto Differential panel - Blood [facility] Start: 07-07-2020 Lipid 1996 panel - Serum or Plasma LIPID PROFILE [facility] Start: 06-29-2020 BUN + CREATININE [facility] Start: 06-24-2020 [facility] Work Phone: Start: 06-17-2020 Nephrology [facility] Work Phone: Comment on above: Note: Please make a referral to: Start: 06-08-2020 End: 06-08-2020 Appointment 06/08/2020 Appointment Radiology Radiologist, [facility] Start: 06-06-2020 End: 06-06-2020 Patient education based on identified need [facility] Start: 06-06-2020 Medical Established Patient [facility] Work Phone: Start: 05-06-2020 End: 05-06-2020 Patient education based on identified need [facility] Start: 05-06-2020 End: 05-06-2020 Provider instructions for treatment Intervention and counseling on cessation of tobacco use, 3-10 minutes [facility] Start: 05-06-2020 [facility] Work Phone: Start: 04-18-2020 End: 04-18-2020 Office Visit 04/18/2020 Office Visit Neurology Bhupinder Iniguez MD [address] [place] [address] [facility] Start: 04-07-2020 [facility] Work Phone: Start: 04-04-2020 End: 04-04-2020 Appointment [facility] Start: 03-31-2020 End: 03-31-2020 Patient education based on identified need [facility] Start: 03-04-2020 Lipid 1996 panel [facility] Work Phone: Start: 02-26-2020 Breast cancer screen Breast cancer screen [place], [place] Start: 02-26-2020 Screening for malignant neoplasm of breast Breast cancer screen [place], [place] Start: 02-26-2020 End: 02-26-2020 Patient education based on identified need [facility] Start: 02-07-2020 Colon Cancer Screen FIT/FOBT Colon Cancer Screen FIT/FOBT [place], [place] Start: 02-07-2020 Screening for malignant neoplasm of colon [facility] Start: 02-02-2020 Influenza vaccination Flu vaccine (#1) [place], [place] Start: 01-30-2020 A1C test (Diabetic or Prediabetic) A1C test (Diabetic or Prediabetic) [place], [place] Comment on above: Postponed from 08/10/2017 (Not Indicated ) Start: 01-30-2020 Hepatitis C screen Hepatitis C screen [place], [place] Comment on above: Postponed from 1956 (Patient Refus ed) Start: 01-30-2020 HIV screen HIV screen [place], [place] Comment on above: Postponed from 10/31/1971 (Patient Refus ed) Start: 01-30-2020 Pneumococcal 0-64 years Vaccine (1 of 1 - PPSV23) Pneumococcal 0-64 years Vaccine (1 of 1 - PPSV23) [place], [place] Comment on above: Postponed from 1962 (Insurance / F inancial) Start: 11-26-2019 Lipid 1996 panel [facility] Work Phone: Start: 11-20-2019 Medical Established Patient [facility] Work Phone: Start: 11-03-2019 End: 11-03-2019 Office Visit 11/03/2019 Office Visit General Surgery Billy Ojeda MD [address] [facility] [address] [place] [id number] [phone] [facility] Start: 09-24-2019 End: 09-24-2019 Office Visit 09/24/2019 Office Visit Neurology Bhupinder Iniguez MD [address] [place] [address] [address] [place] [address] [facility] [place] Start: 08-31-2019 ENT [facility] Work Phone: Comment on above: Note: Please make a referral to: when sh e can have face to face visit , 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 was seen [facility] Start: 07-23-2019 Medical Established Patient [facility] Work Phone: Start: 06-05-2019 End: 06-05-2019 Patient education based on identified need [facility] Start: 06-05-2019 [facility]- Asthma Clinic- F/U [facility] Work Phone: Start: 05-28-2019 End: 05-28-2019 Patient education based on identified need [facility] Start: 04-23-2019 End: 04-23-2019 Patient education based on identified need [facility] Start: 04-23-2019 End: 04-23-2019 Provider instructions for treatment Return to the clinic if condition worsens or new symptoms arise [facility] Start: 04-23-2019 End: 04-23-2019 Office Visit 04/23/2019 Office Visit Neurology Bhupinder Iniguez MD [address] [place] [address] [address] [place] [address] [facility] [place] Start: 04-20-2019 End: 04-20-2019 Office Visit 04/20/2019 Office Visit General Surgery Billy Ojeda MD [address] [facility] [address] [place] [address] [place] [facility] Start: 04-16-2019 Private Stock [facility] Work Phone: Start: 04-15-2019 End: 04-15-2019 Provider instructions for treatment Intervention and counseling on cessation of tobacco use, 3-10 minutes [facility] Start: 03-05-2019 End: 03-05-2019 Patient education based on identified need [facility] Start: 03-02-2019 End: 03-02-2019 Office Visit 03/02/2019 Office Visit Neurology Bhupinder Iniguez MD [address] [place] [address] [facility] Neurology specialist [place] Start: 02-25-2019 End: 02-25-2019 Appointment 02/25/2019 Appointment Radiology [facility] Start: 02-01-2019 Influenza vaccination Flu vaccine (#1) [place], [place] Start: 12-22-2018 End: 10-04-2018 Free T4 [Mass/Vol] [facility] Work Phone: Start: 12-11-2018 Breast cancer screen Breast cancer screen [place], [place] Start: 11-06-2018 FQHC visit, estab pt Established Patient [facility] Work Phone: Start: 10-04-2018 Free T4 [Mass/Vol] [facility] Work Phone: Start: 09-11-2018 End: 10-04-2018 CBC W Auto Differential panel - Blood [facility] Work Phone: Comment on above: Note: Please make a referral to: Start: 09-04-2018 End: 10-04-2018 CBC W Auto Differential panel - Blood CBC with diff (CDP) [facility] Start: 09-04-2018 End: 10-04-2018 Comprehensive metabolic 2000 panel - Serum or Plasma Comprehensive Metabolic Panel (CP) [facility] Start: 09-04-2018 End: 10-04-2018 Lipid panel Lipid Panel (LIPR) [facility] Start: 09-04-2018 End: 10-04-2018 Thyrotropin [Units/volume] in Serum or Plasma TSH [facility] Start: 09-04-2018 End: 10-04-2018 Thyroxine (T4) free [Mass/volume] in Serum or Plasma T4 Free (FT4) [facility] Start: 11-19-2017 Screening mammography Screening mammography of both breasts, two views [facility] Start: 08-10-2017 HbA1c (Bld) [Mass fraction] A1C test (Diabetic or Prediabetic) [place], [place] Start: 08-10-2017 Hemoglobin A1c measurement A1C test (Diabetic or Prediabetic) [facility] Start: 03-26-2016 Shingles Vaccine (2 of 3) Shingles Vaccine (2 of 3) [facility] Start: 2001 Screening for malignant neoplasm of colon [facility] Start: 1986 Screening for malignant neoplasm of cervix HPV (without or with Pap) [facility] Start: 1974 Hepatitis C screening Hepatitis C screen [facility] Start: 10-31-1971 HIV screening HIV screen [facility] Start: 1968 Depression Monitoring Depression Monitoring [facility] Start: 1962 Pneumococcal 0-64 years Vaccine (1 of 1 - PPSV23) Pneumococcal 0-64 years Vaccine (1 of 1 - PPSV23) [place], [place] Start: 1962 Pneumococcal 0-64 years Vaccine (1 of 2 - PPSV23) Pneumococcal 0-64 years Vaccine (1 of 2 - PPSV23) [facility] Start: 1956 Hepatitis C screening Hepatitis C screen [facility] End: 08-16-2022 Cytopathology procedure, preparation of smear, genital source PAP SMEAR Lab Routine Screening for malignant neoplasm of cervix 1 Occurrences starting 08/16/2022 until 08/16/2022 [facility] Work Phone: Comment on above: 1 Occurrences starting 08/16/2022 until 08/16/2022 Dermatopathology exam Dermatopat hology exam Pathology and Cytology Timed Neoplasm of unspecified behavior of bone, soft tissue, and skin Release Upon Ordering for 1 Occurrences starting 07/16/2023 [facility] Work Phone: Comment on above: Release Upon Ordering for 1 Occurrences starting 07/16/2023 End: 08-16-2022 Herpes Simplex 1 & 2, Molecular [facility] Work Phone: Comment on above: 1 Occurrences starting 08/16/2022 until 08/16/2022 Patient Education Schizoaffectiv e Disorder (DC) [facility] DC Instructions [facility] Work Phone: Patient referral [facility] Work Phone: End: 08-16-2022 Vaginitis DNA Probe [facility] Work Phone: Comment on above: 1 Occurrences starting 08/16/2022 until 08/16/2022 [facility] Immunizations Immunization Date Immunization Notes Care Provider Fa tahmina 03-22-2022 COVID-19 mRNA Bivale nt Booster (Pfizer) FIRST COAT OPERATOR Karla Clark Work Phone: [facility] 06-12-2021 COVID-19 mRNA, Comirnaty (Pfizer) FIRST COAT OPERATOR Karla Clark Work Phone: [facility] 07-05-2020 1st Dose MODERNA COVID-19 Vaccine Karla 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: [facility] 06-07-2020 1st Dose MODERNA COVID-19 Vaccine Karla 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: [facility] 03-31-2020 pneumococcal conjuga te vaccine, 13 valent; Translations: [Prevnar-13] [facility] Comment on above: Note: pt tolerated w ell pt waited 10 min in treatment room with no adverse effects noted at this time 03-31-2020 Imm.Admin. over 18 y rs Any Route FIRST Injection (Rendering physcian modifier) [facility] Work Phone: 03-31-2020 Imm.Admin. over 18 y rs Any Route FIRST Injection [facility] Work Phone: 03-14-2020 influenza, seasonal, injectable; Translations: [Flluarix] [facility] Comment on above: Note: pt tolerated w ell, pt waited 10 min in treatment with no adverse effects noted at this time. 03-14-2020 influenza, injectabl e, quadrivalent, preservative free [facility] Work Phone: 03-14-2020 Imm.Admin. over 18 y rs Any Route FIRST Injection [facility] Work Phone: 03-14-2020 Imm.Admin. over 18 y rs Any Route FIRST Injection (Rendering physcian modifier) [facility] Work Phone: 04-15-2019 influenza, injectabl e, quadrivalent, preservative free [facility] Work Phone: 04-15-2019 influenza, seasonal, injectable [facility] Comment on above: Note: Patient tolera cornelia well. No signs or symptoms of adverse reactions. Patient waited in facility for 15 minutes. 03-20-2018 influenza, injectabl e, quadrivalent, preservative free; Translations: [FLU VAC NO PRSV 4 DANNY 3 YRS+] [facility] 03-20-2018 influenza, seasonal, injectable, preservative free [facility] 03-20-2018 IMMUNIZATION ADMIN; Translations: [IMMUNIZATION ADMIN] [facility] 03-20-2018 influenza virus vaccine, unspecified formulation Karlajulius Clark [facility] Work Phone: [facility] Work Phone: Comment on above: Note: Influenza (Juan M lt) 03-20-2018 influenza, high dose seasonal, preservative-free [facility] Comment on above: Note: Influenza (Juan M lt) 12-27-2017 tetanus toxoid, redu soren diphtheria toxoid, and acellular pertussis vaccine, adsorbed [address] 03-20-2017 influenza virus vaccine, unspecified formulation [address] 03-20-2017 influenza, seasonal, injectable Karlajulius 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: [facility] 03-05-2017 influenza, injectabl e, quadrivalent, preservative free; Translations: [FLU VAC NO PRSV 4 DANNY 3 YRS+] [facility] 03-05-2017 influenza, seasonal, injectable, preservative free [facility] 03-05-2017 IMMUNIZATION ADMIN; Translations: [IMMUNIZATION ADMIN] [facility] 03-05-2017 influenza virus vaccine, unspecified formulation Karla 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: [facility] Work Phone: Comment on above: Note: Influenza (Juan M lt) 03-05-2017 influenza, high dose seasonal, preservative-free [facility] Comment on above: Note: Influenza (Juan M lt) 04-03-2016 Influenza Vaccine, unspecified formulation [address] 03-20-2016 influenza, injectabl e, quadrivalent, preservative free; Translations: [FLU VAC NO PRSV 4 DANNY 3 YRS+] [facility] 03-20-2016 IMMUNIZATION ADMIN; Translations: [IMMUNIZATION ADMIN] [facility] 03-20-2016 influenza virus vaccine, unspecified formulation Karla Clrak STUDIO CAMERA OPERATOR Work Phone: [facility] Work Phone: Comment on above: Note: Influenza (Juan M lt) 03-20-2016 influenza, high dose seasonal, preservative-free [facility] Comment on above: Note: Influenza (Juan M lt) 01-30-2016 zoster vaccine, live [address] 04-08-2015 influenza, seasonal, injectable, preservative free Karla Amber STUDIO CAMERA OPERATOR Work Phone: [facility] 11-07-2014 varicella virus vaccine Gary e Amber STUDIO CAMERA OPERATOR Work Phone: [facility] 04-12-2014 influenza virus vaccine, unspecified formulation [facility] 2 [facility] 03-05-2012 influenza, seasonal, injectable Karla 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: [facility] 01-06-2009 tetanus toxoid, redu soren diphtheria toxoid, and acellular pertussis vaccine, adsorbed Karla 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: [facility] Payers Date Payer Category Payer Medicaid [id number] 2023 Medicare [employer]NA MEDICARE ADVANTAGE [employer] MEDICARE [id number] 2023-Present [address] [address] [place] [address] [id number] 2023 Private Health Insurance [id number] 2022 Self-pay 2014 Unknown [facility] MEDICA[facility] xxxxxxxxxxx 2014-Present [phone] CLAIMS DEPARTMENT [address] [place] [address] xxxxxxxxxxx [id number] 1959 Medicaid [id number] 2013 Unknown [id number] [id number] 1959 Medicare [id number]. [id number] 1956 Unknown [id number] 2.16.840.1.226678.3.579.2. 175 1956 Unknown [id number] 2.16.840.1.504669.3.579.2. 175 1956 Unknown [id number] 2.16.840.1.119847.3.579.2. 175 1956 Unknown [id number] 2.16.840.1.322410.3.579.2. 593 1956 Unknown [id number] 2.16.840.1.508830.3.579.2. 593 1956 Unknown [id number] 2.16.840.1.896387.3.579.2. 593 1956 Unknown [id number] 2.16.840.1.101240.3.579.2. 593 1956 Unknown [id number] 2.16.840.1.028960.3.579.2. 173 1956 Unknown [id number] 2.16.840.1.901920.3.579.2. 173 1956 Unknown [id number] 2.16.840.1.081639.3.579.2. 173 Unknown [id number] 2.16.840.1.044361.3.579.2. 531 Unknown [id number] 2.16.840.1.743410.3.579.2. 531 Unknown [id number] 2.16.840.1.716294.3.579.2. 531 Unknown [id number] 2.16.840.1.648270.3.579.2. 531 Unknown [id number] 2.16.840.1.399478.3.579.2. 531 Unknown [id number] 2.16.840.1.795629.3.579.2. 531 Unknown [id number] 2.16.840.1.665261.3.579.2. 531 Unknown [id number] 2.16.840.1.388678.3.579.2. 531 Unknown [id number] 2.16.840.1.300540.3.579.2. 531 Unknown [id number] 2.16.840.1.181191.3.579.2. 531 Social History Date Type Detail Facility [facility] Comment on above: 1/2 PPD Start: 2-4 cups pd [facility] Start: 01-29-2019 End: 01-01-2022 Current every day smoker [facility] Gender identity finding (finding) [facility] Assertion Heterosexual (finding) [facility] Assertion Finding of sexua l orientation (finding) [facility] Assertion Tobacco user (finding) [facility] Work Phone: Tobacco smoking status Unknown if ever smoked [facility] History of tobacco use [facility] [place] [place] Start: 01-29-2019 End: 07-16-2023 Cigarettes smoked current (pack per day) - Reported [facility] [place] [place] Start: 01-29-2019 End: 07-16-2023 Alcohol intake No [facility] [place] [place] Start: 1955 Sex Assigned At Not on file [facility] [place] Start: 03-23-2019 End: 08-16-2022 Alcohol intake Current non-drinker of alcohol (finding) [facility] [place] Start: 02-27-2022 [facility] Assertion Alcohol consumpt ion screening (procedure) [facility] Work Phone: Start: 03-23-2019 End: 07-16-2023 Tobacco use and exposure [facility] [place] Exposure to SARS-CoV-2 (event) Not sure [facility] [place] Start: 04-18-2020 End: 01-01-2022 Tobacco Comment I smoke about 3-6 cig/day - 04-18-20. [facility] [place] [place] Assertion Light cigarette smoker (1-9 cigs/day) (finding) [facility] Assertion Exposure to poll ution (event) [facility] Start: 09-11-2022 End: 03-26-2023 Assertion Smoker (finding) [facility] Assertion Finding relating to sexual activity (finding) [facility] Assertion Ex-smoker (finding) [facility] Start: 1955 Sex Assigned At Female [facility] Assertion Currently not se xually active (finding) [facility] Start: 07-16-2023 Tobacco smoking status NHIS Never smoked tobacco [facility] NEGATED: Highlighted row Assertion Exposure to pollution (event) [facility] NEGATED: Highlighted row Assertion Current drinker of alcohol (finding) [facility] NEGATED: Highlighted row Assertion Finding relating to drug misuse behavior (finding) [facility] NEGATED: Highlighted row Assertion Tobacco user (finding) [facility] Work Phone: NEGATED: Highlighted row Assertion Illicit drug use (finding) [facility] Work Phone: NEGATED: Highlighted row Assertion Misuse of prescription only drugs (finding) [facility] Work Phone: NEGATED: Highlighted row Assertion [facility] NEGATED: Highlighted row Assertion Contraception (finding) [facility] NEGATED: Highlighted row Assertion Sexually active (finding) [facility] Medical Equipment Procedure Code Equipment Code Equipment Origin al Text Equipment Identifier Dates Open reduction and internal fixation of fracture of humerus CANCELLOUS 7.5 CRUSHED FDA Start: 09-13-2022 Open reduction and internal fixation of fracture of humerus Orthopaedic bone screw, non-bioabsorbable, non-sterile ()[id number] FDA Start: 09-13-2022 Open reduction and internal fixation of fracture of humerus Orthopaedic fixation plate, non-bioabsorbable, sterile ()[id number] FDA Start: 09-13-2022 Open reduction and internal fixation of fracture of humerus Orthopaedic bone wire ()[id number] FDA Start: 09-13-2022 Open reduction and internal fixation of fracture of humerus Orthopaedic bone wire ()[id number] FDA Start: 09-13-2022 Open reduction and internal fixation of fracture of humerus Orthopaedic bone wire ()[id number] FDA Start: 09-13-2022 Open reduction and internal fixation of fracture of humerus Orthopaedic bone screw, non-bioabsorbable, non-sterile ()[id number] FDA Start: 09-13-2022 Open reduction and internal fixation of fracture of humerus Orthopaedic bone screw, non-bioabsorbable, non-sterile ()[id number] FDA Start: 09-13-2022 Open reduction and internal fixation of fracture of humerus Orthopaedic bone screw, non-bioabsorbable, non-sterile ()[id number] FDA Start: 09-13-2022 Open reduction and internal fixation of fracture of humerus Orthopaedic bone screw, non-bioabsorbable, non-sterile ()[id number] FDA Start: 09-13-2022 Open reduction and internal fixation of fracture of humerus Orthopaedic bone screw, non-bioabsorbable, non-sterile ()[id number] FDA Start: 09-13-2022 Open reduction and internal fixation of fracture of humerus Orthopaedic bone screw, non-bioabsorbable, non-sterile ()[id number] FDA Start: 09-13-2022 Open reduction and internal fixation of fracture of humerus CANCELLOUS 7.5 CRUSHED FDA Start: 09-13-2022 Open reduction and internal fixation of fracture of humerus CANCELLOUS 7.5 CRUSHED FDA Start: 09-13-2022 Open reduction and internal fixation of fracture of humerus CANCELLOUS 7.5 CRUSHED FDA Start: 09-13-2022 Open reduction and internal fixation of fracture of humerus CANCELLOUS 7.5 CRUSHED FDA Start: 09-13-2022 Open reduction and internal fixation of fracture of humerus CANCELLOUS 7.5 CRUSHED FDA Start: 09-13-2022 Goals Date Patient Goal Desired Activity /State Functional Status Date Assessment Result Facility 03-28-2023 Functional status Patient at Baseline [facility] Work Phone: 03-15-2023 Functional status Patient at [facility] Work Phone: Mental Status Date Assessment Result Facility 03-28-2023 Cognitive function Cognitive Sta tus Patient at Baseline [facility] Work Phone: 03-15-2023 Cognitive function Cognitive Sta tus Patient at Baseline [facility] Work Phone: Cognitive function No anxiety Anxiety (fi nding) [facility] Work Phone: Clinical Notes 09-04-2018 to 07-16-2023 Dakota Mack MD - 07/16/2023 1:20 PM EST Note Date & Type Note Facility 07-16-2023 History of Present illness Narrative Images from the original note were not included. Lesion(s) Location: nose Duration: years Quality: denies pain, denies itch Modifying factors: aggravated by picking Associated symptoms: rough Treatments: none New patient, referred by Karla Clark MD All pertinent medical history, medications, and allergies were reviewed. General Exam: alert , oriented to person, place, and time , normal affect, well appearing Unaccompanied A focused exam completed based on patient reported problems, see below: 1. Neoplasm of unspecified behavior of bone, soft tissue, and skin Nasal tip Irregularly pigmented papule Lesion biopsy Type of biopsy: tangential Informed consent: discussed and consent obtained Informed consent comment: The risks and benefits of the biopsy were discussed. Risks include but are not limited to bleeding, infection, scarring, pain, and nerve damage. An opportunity to ask questions prior to the procedure was permitted and all questions were answered. Patient was prepped and draped in usual sterile fashion: area cleansed with alcohol. Anesthesia: the lesion was anesthetized in a standard fashion Anesthetic: 1% lidocaine w/ epinephrine 1-100,000 buffered w/ 8.4% NaHCO3 Instrument used: DermaBlade Hemostasis achieved with: electrodesiccation Outcome: patient tolerated procedure well Outcome comment: The specimen was placed in a prelabeled formalin container to be sent for pathology Post-procedure details: sterile dressing applied and wound care instructions given Post-procedure details comment: Emphasized need to contact clinic for any signs of infection, uncontrollable bleeding, or complications. Dressing type: bandage Additional details: Photo taken Amount of lidocaine used: 0.3 cc Specimen A - Dermatopathology exam Differential Diagnosis: BCC Check Margins: No Size of lesion: 0.6 x 0.5 cm Next Visit: pending biopsy results documented in this encounter [facility] 06-28-2023 Note HNO ID: [id number] Author: YANDEL DANIEL MD Service: ? Author Type: Physician Type: Progress Notes Filed: 06/28/2023 15:37 Note Text: [facility] Note CC: Post op of thyroidectomy performed on 06/18/2023 HPI: Patient is a 67 year old female, current smoker(0.25 ppd 10py), with a history of schizoaffective disorder, bipolar disorder, COPD. Ms. Almeida presented with thyroid goiter in the context of long-standing lithium use for management of psychiatric disorders, at the [facility]. Thyroidectomy was offered. As such, patient underwent thyroidectomy performed on 06/18/2023 Patient presents for post-operative visit. Current Outpatient Medications Medication Sig Dispense Refill acetaminophen (TYLENOL) 500 mg tablet Take 2 tablets by ORAL/FEEDING TUBE route every 6 hours for 5 days, THEN 1 tablet every 6 hours for 5 days. 60 tablet 0 calcium carbonate (OS-RL 500) 500 mg calcium (1,250 mg) tablet Take 1 tablet by mouth once daily. 30 tablet 0 levothyroxine (SYNTHROID) 112 mcg tablet Take 1 tablet by mouth daily before breakfast. 90 tablet 0 QUEtiapine (SEROQUEL) 25 mg tablet Take 25 mg by mouth two times a day. Take 1/2 tablet twice daily acidophilus-pectin, citrus 100 million cell-10 mg cap Take by mouth. Fluticasone Furoate 27.5 mcg/actuation nasal spray Use 2 Sprays in each nostril once daily. mecobalamin (B12 ACTIVE ORAL) Take 800 mcg by mouth once daily. amantadine HCl (SYMMETREL) 100 mg capsule Take 100 mg by mouth two times a day. benzonatate (TESSALON PERLE) 100 mg capsule Take 100 mg by mouth once daily. benztropine (COGENTIN) 0.5 mg tablet Take 0.5 mg by mouth two times a day. cloNIDine HCl (CATAPRES) 0.1 mg tablet Take 0.1 mg by mouth once daily. docusate sodium (COLACE) 100 mg capsule Take 100 mg by mouth once daily. folic acid 800 mcg tablet Take 800 mcg by mouth once daily. lithium carbonate (ESKALITH) 150 mg capsule Take 150 mg by mouth two times a day with meals. loratadine (CLARITIN) 10 mg tablet Take 10 mg by mouth once daily. meloxicam (MOBIC) 15 mg tablet Take 15 mg by mouth once daily. QUEtiapine XR (SEROQUEL XR) 400 mg 24 hr tablet Take 400 mg by mouth daily at bedtime. RISPERDAL CONSTA 25 mg/2 mL injection Inject 25 mg intramuscularly every 2 weeks. topiramate (TOPAMAX) 25 mg tablet Take 25 mg by mouth once daily. famotidine (PEPCID) 20 mg tablet Take 20 mg by mouth two times a day. albuterol HFA (PROVENTIL HFA, VENTOLIN HFA) 90 mcg/actuation inhaler Inhale 1 Puff as instructed as needed. OYSTER SHELL CALCIUM-VITAMIN D 500 mg-5 mcg (200 unit) per tablet WIXELA INHUB 250-50 mcg/dose inhaler Inhale 1 Puff as instructed two times a day. MUCUS DM 30-600 mg per tablet Take 1 tablet by mouth every 12 hours as needed. nqbwci-atyfmnjj-bkarnsz (ENZADYNE) 9,000-112,500- 112,500 unit capsule Take 1 capsule by mouth daily with food. nystatin (MYCOSTATIN) cream Apply to affected area two times a day. OLANZapine (ZYPREXA) 5 mg tablet Take 5 mg by mouth every 12 hours as needed. No current facility-administered medications for this visit. EXAM: Constitutional - General Appearance: well developed, well nourished, without obvious deformities Communication: speaks with a normal voice without hoarseness Head AND Face - Overall: no obvious scars, lesions or masses Facial strength: normal and equal bilaterally Oral Cavity and oropharynx: mucosa, hard and soft palates, tongue, tonsil area, posterior pharyngeal wall, lips and gums are without lesions Neck: appears symmetric, and on palpation is without masses or lymphadenopathy Neuro: CN III - CN XII grossly intact PATHOLOGY: 06/18/2023 - Surgical Pathology FINAL DIAGNOSIS A,B. 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 - No parathyroid glands or lymph nodes were identified. - Negative for malignancy. ASSESSMENT: Gail Almeida is a 67 year old female with a history of schizoaffective disorder, bipolar disorder, COPD, thyroid goiter in the context of long-standing lithium use for management of psychiatric disorders Surgical pathology demonstrated follicular thyroid hyperplasia associated with secondary changes including focal hemorrhage, and calcifications. Patient is overall healing very well. Discussed with patient that her symptoms should continue to improve with time. Post-op wound care instructions rediscussed. Reviewed surgical pathology with the patient. We will continue with careful surveillance. PLAN AND RECOMMENDATIONS: Continue follow up Follow up 4 months MD Velma Mccabe Attestation: By signing my name below, I, Zora Mtz, attest that this documentation has been prepared under the direction and in the presence of Yandel Daniel MD. Electronically Signed: velma Diallo, June 28, 2023 1:53 PM June 28, 2023 I participated in t (more content not included)... [facility] 06-22-2023 Note HNO ID: [id number] Author: IAN WITT MD Service: Otolaryngology Author Type: Resident Type: Progress Notes Filed: 06/22/2023 09:24 Note Text: [facility] OT[facility] - HEAD AND NECK SURGERY PROGRESS NOTE PAGE [phone] AFTER 1700 AND ON WEEKENDS Patient Name: Gail Almeida Age: [age] year old Sex: female Date: June 22, 2023 Admission Date: 06/18/2023 Hospital Day: 0 ASSESSMENT/PLAN: Gail Almeida is a 67 year old female who is 4 Days Post-Op from Procedure(s): THYROIDECTOMY TOTAL Afebrile and with vital signs stable. No perioral numbness, tingling. COURTNEY drain removed this AM. Neck incision c/d/I. Calcium improved. However, PTH is low. Concern for possible reduced renal clearance in setting of MYESHA. Will recheck. Appreciate medicine input regarding MYESHA in setting of lithium use and multiple antipsychotic medications. - Analgesia: Tylenol, oxy, tramadol - Antibiotics: Ancef - AC: Lovenox - FEN: Regular - Wound Care: Aquaphor to incisions BID - Dispo: discharge home today Ian Witt MD Otolaryngology - Head and Neck Surgery PGY 3 Pager: [phone] Service pager: [phone] (page after 5pm and on weekends) SUBJECTIVE: No acute events overnight. Pain well-controlled with current regimen. Breathing well on RA. Tolerating diet. OBJECTIVE: Vitals: 06/21/23 2202 06/22/23 0103 06/22/23 0517 06/22/23 0745 BP: 136/71 119/81 136/61 Pulse: 100 88 83 89 Resp: 17 18 18 18 Temp: 36.7 ?C (98.1 ?F) 36.5 ?C (97.7 ?F) TempSrc: Temporal Temporal SpO2: 92% 95% 92% 96% Weight: Height: Ins AND Outs: Date 06/21/23 0700 - 06/22/23 0659 06/22/23 0700 - 06/23/23 0659 Shift 0069-5103 3151-2243 2073-8891 24 Hour Total 8602-5534 6773-5254 4840-3297 24 Hour Total INTAKE PO(mL/kg) 840(12.92) 1290(19.85) 740(11.38) 2870(44.15) 360(5.54) 360(5.54) PO 840 9927 668 7806 360 360 Shift Total(mL/kg) 840(12.92) 1290(19.85) 740(11.38) 2870(44.15) 360(5.54) 360(5.54) OUTPUT Urine(mL/kg/hr) 250(0.48) 250(0.16) Void (ml) 250 250 Urine Not Saved. 5 x 2 x 4 x 11 x # of BMs(mL/kg) Number of BMs 2 x 2 x Shift Total(mL/kg) 250(3.85) 250(3.85) Weight (kg) 65 65 65 65 65 65 65 65 Physical Examination: General: No acute distress Neuro: following commands, appropriate Cardiopulm: Well perfused, breathing non-labored, no hoarseness Face: Full and symmetric facial motion, no weakness Neck: soft, incisions c/d/i, no signs of hematoma, seroma LABS: Blood: Recent Labs 06/20/23 0616 WBC 7.26 HB 14.0 HCT 42.6 PLT 201 MCV 96.4 MCH 31.7 MCHC 32.9 RDWCV 13.3 MPV 10.1 Recent Labs 06/21/23 0812 06/20/23 0616 NA 142 140 K 4.0 4.0 CHLOR 104 104 CO2 25 26 BUN 26* 26* CREAT 1.20* 1.27* GLUC 161* 113* CA 9.6 10.8* MG -- 1.8 P 4.2 4.9* No results for input(s): PCGLUCOSE in the last 72 hours. No results for input(s): CK , CKMB , MB , TROPT in the last 72 hours. No results for input(s): PTSEC , INR , APTT in the last 72 hours. Recent Labs 06/21/23 0812 ALB 4.1 No results for input(s): PH , PCO2 , PO2 , HCO3 , BE , LACT in the last 72 hours. Medications: Current Facility-Administered Medications Medication Dose Route Frequency docusate sodium 100 mg cap(s) (COLACE) 100 mg ORAL BID polyethylene glycol 3350 17 g packet 17 g ORAL DAILY PRN QUEtiapine 12.5 mg tab(s) (SEROquel) 12.5 mg ORAL BID 6a/1p mometasone-formoterol 100-5 mcg/actuation 2 Puff inhaler (DULERA) 2 Puff INHALATION BID topiramate 25 mg tab(s) (TOPAMAX) 25 mg ORAL DAILY OLANZapine 5 mg tab(s) (ZYPREXA) 5 mg ORAL q 12 H PRN cloNIDine HCl 0.1 mg tab(s) (CATAPRES) 0.1 mg ORAL DAILY benztropine 0.5 mg tab(s) (COGENTIN) 0.5 mg ORAL BID amantadine HCl 100 mg cap(s) (SYMMETREL) 100 mg ORAL BID albuterol HFA 90 mcg/actuation 1 Puff (PROVENTIL HFA, VENTOLIN HFA) 1 Puff INHALATION PRN NaCl 0.9% iv flush bag 20 mL INTRAVENOUS PRN acetaminophen 1,000 mg tab(s) (TYLENOL) 1,000 mg ORAL/FEEDING TUBE q 6 H Followed by [START ON 06/25/2023] acetaminophen 500 mg tab(s) (TYLENOL) 500 mg ORAL/FEEDING TUBE q 6 H oxyCODONE IR 5-10 mg tab(s) (ROXICODONE) 5-10 mg ORAL/FEEDING TUBE q 4 H PRN Or oxyCODONE 5-10 mg oral liquid (ROXICODONE) 5-10 mg ORAL q 4 H PRN bacitracin 500 unit/gram topical ointment TOPICAL BID enoxaparin 40 mg injection (LOVENOX) 40 mg SUBCUTANEOUS q 24 HR levothyroxine 112 mcg tab(s) (SYNTHROID) 112 mcg ORAL DAILY (6 AM) lithium carbonate 150 mg tab(s) 150 mg ORAL BID w MEALS famotidine 20 mg tab(s) (PEPCID) 20 mg ORAL DAILY QUEtiapine 400 mg tab(s) (SEROquel) 400 mg ORAL AT BEDTIME benzocaine-menthol 1 Lozenge (CHLORASEPTIC) 1 Lozenge MUCOUS MEMBRANE (TOPICAL MOUTH AND THROAT) q 2 H PRN Principal Problem: Nontoxic multinodular goiter Active Problems: Goiter Elevated serum creatinine Stage 2 chronic kidney disease Goiter POA: Yes [facility] 06-21-2023 Note HNO ID: [id number] Author: CHRIS LIVINGSTON RN Service: Care Management Author Type: Registered Nurse Type: Care Mgt Progress Note Filed: 06/21/2023 15:12 Note Text: CARE MANAGEMENT PROGRESS NOTE SERVICE DATE: 06/21/2023 SERVICE TIME: 2:26 PM LOS: 0 days Medically cleared for discharge back to [facility] [place] [id number] ([phone]) CM spoke with [facility] no long distance transport today or this weekend due to the weather. CM spoke with nurse Parada at the [facility] she will see if they can get transport and will call CM back. Addendum: 2:50 PM Prachi the nurse from [facility] called back they have no transport either: secure message sent to team. Waiting for response. Addendum: 3:10 PM CM spoke with Prachi again stated they have their own van that will pick the patient up at 11:00 AM Thursday 06/22, the motorcycle delivery driver will call the CM when they arrive. SIGNATURE: Chris Livingston RN PATIENT NAME: Gail Almeida DATE: June 21, 2023 TIME: 2:26 PM PAGER/CONTACT #: N/A [facility] 06-21-2023 Note HNO ID: [id number] Author: GEMA CARVALHO MD Service: Endocrinology Author Type: Fellow Type: Plan of Care Filed: 06/21/2023 14:11 Note Text: Paged primary team about the consult to endocrine. Per primary they are discharging patient and would follow up outpatient. Was asked to D/C consult per , ENT resident. [facility] 06-21-2023 Note HNO ID: [id number] Author: JANIS GATES MD Service: Otolaryngology Author Type: Resident Type: Progress Notes Filed: 06/21/2023 10:11 Note Text: [facility] OT[facility] - HEAD AND NECK SURGERY PROGRESS NOTE PAGE [phone] AFTER 1700 AND ON WEEKENDS Patient Name: Gail Almeida Age: [age] year old Sex: female Date: June 21, 2023 Admission Date: 06/18/2023 Hospital Day: 0 ASSESSMENT/PLAN: Gail Almeida is a 67 year old female who is 3 Days Post-Op from Procedure(s): THYROIDECTOMY TOTAL Afebrile and with vital signs stable. No perioral numbness, tingling. COURTNEY drain removed this AM. Neck incision c/d/I. Calcium improved. However, PTH is low. Concern for possible reduced renal clearance in setting of MYESHA. Will recheck. Appreciate medicine input regarding MYESHA in setting of lithium use and multiple antipsychotic medications. FU PTH Appreciate IM recs. - Analgesia: Tylenol, oxy, tramadol - Antibiotics: Ancef - AC: Lovenox - FEN: Regular - Wound Care: Aquaphor to incisions BID - Dispo: please transfer to G81 Janis Gates, PGY-2, Otolaryngology Service Pager: [phone] Pager: [phone] June 19, 2023 9:13 AM For questions after 5 PM and on weekends, please page [phone]. SUBJECTIVE: No acute events overnight. Pain well-controlled with current regimen. Breathing well on RA. Tolerating diet. OBJECTIVE: Vitals: 06/20/23 2100 06/20/23 2121 06/21/23 0052 06/21/23 0451 BP: 127/58 107/55 105/62 Pulse: 74 74 83 77 Resp: 16 17 16 Temp: 36.7 ?C (98.1 ?F) 36.2 ?C (97.2 ?F) 36 ?C (96.8 ?F) TempSrc: Oral Temporal Temporal SpO2: 95% 94% 93% 93% Weight: Height: Ins AND Outs: Date 06/20/23 0700 - 06/21/23 0659 06/21/23 0700 - 06/22/23 0659 Shift 0141-5607 8831-4845 9191-3685 24 Hour Total 4304-9517 4060-3494 7015-5093 24 Hour Total INTAKE PO 720 5063 565 4960 480 480 PO 720 8944 199 3733 480 480 IV 100 100 100 300 Volume (mL) (ceFAZolin iv piggyback 2 g in D5W (iso-osmotic) 100 mL (ANCEF)) 100 100 100 300 Shift Total 820 9542 167 6525 480 480 OUTPUT Urine 1050 4131 132 4669 Void (ml) 1050 8101 816 4182 Urine Not Saved. 2 x 2 x 2 x 2 x Tubes 15 10 7.5 32.5 Drain/Tube Output (Drain/Tube 06/18/23 1449 [facility] Throat) 15 10 7.5 32.5 # of BMs Number of BMs 0 x 1 x 1 x 1 x 1 x Shift Total 1065 1060 807.5 2932.5 Weight (kg) 65 65 65 65 65 65 65 65 Physical Examination: General: No acute distress Neuro: following commands, appropriate Cardiopulm: Well perfused, breathing non-labored, no hoarseness Face: Full and symmetric facial motion, no weakness Neck: soft, incisions c/d/i, no signs of hematoma, seroma Drains: LN COURTNEY x 1, serosanguinous and holding suction LABS: Blood: Recent Labs 06/20/23 0616 WBC 7.26 HB 14.0 HCT 42.6 PLT 201 MCV 96.4 MCH 31.7 MCHC 32.9 RDWCV 13.3 MPV 10.1 Recent Labs 06/21/23 0812 06/20/23 0616 NA 142 140 K 4.0 4.0 CHLOR 104 104 CO2 25 26 BUN 26* 26* CREAT 1.20* 1.27* GLUC 161* 113* CA 9.6 10.8* MG -- 1.8 P 4.2 4.9* No results for input(s): PCGLUCOSE in the last 72 hours. No results for input(s): CK , CKMB , MB , TROPT in the last 72 hours. No results for input(s): PTSEC , INR , APTT in the last 72 hours. Recent Labs 06/21/23 0812 ALB 4.1 No results for input(s): PH , PCO2 , PO2 , HCO3 , BE , LACT in the last 72 hours. Medications: Current Facility-Administered Medications Medication Dose Route Frequency calcium carbonate 1,250 mg tab(s) (OS-RL 500) 1,250 mg ORAL DAILY docusate sodium 100 mg cap(s) (COLACE) 100 mg ORAL BID polyethylene glycol 3350 17 g packet 17 g ORAL DAILY PRN QUEtiapine 12.5 mg tab(s) (SEROquel) 12.5 mg ORAL BID 6a/1p ceFAZolin iv piggyback 2 g in D5W (iso-osmotic) 100 mL (ANCEF) 2 g INTRAVENOUS q 8 HR mometasone-formoterol 100-5 mcg/actuation 2 Puff inhaler (DULERA) 2 Puff INHALATION BID topiramate 25 mg tab(s) (TOPAMAX) 25 mg ORAL DAILY OLANZapine 5 mg tab(s) (ZYPREXA) 5 mg ORAL q 12 H PRN cloNIDine HCl 0.1 mg tab(s) (CATAPRES) 0.1 mg ORAL DAILY benztropine 0.5 mg tab(s) (COGENTIN) 0.5 mg ORAL BID amantadine HCl 100 mg cap(s) (SYMMETREL) 100 mg ORAL BID albuterol HFA 90 mcg/actuation 1 Puff (PROVENTIL HFA, VENTOLIN HFA) 1 Puff INHALATION PRN NaCl 0.9% iv flush bag 20 mL INTRAVENOUS PRN acetaminophen 1,000 mg tab(s) (TYLENOL) 1,000 mg ORAL/FEEDING TUBE q 6 H Followed by [START ON 06/25/2023] acetaminophen 500 mg tab(s) (TYLENOL) 500 mg ORAL/FEEDING TUBE q 6 H oxyCODONE IR 5-10 mg tab(s) (ROXICODONE) 5-10 mg ORAL/FEEDING TUBE q 4 H PRN Or oxyCODONE 5-10 mg oral liquid (ROXICODONE) 5-10 mg ORAL q 4 H PRN bacitracin 500 unit/gram topical ointment TOPICAL BID enoxaparin 40 mg injection (LOVENOX) 40 mg SUBCUTANEOUS q 24 HR levothyroxine 112 mcg tab(s) (SYNTHROID) 112 mcg ORAL DAILY (6 AM) lithium carbonate 150 mg tab(s) 150 mg ORAL BID w MEALS famotidine (more content not included)... [facility] 06-20-2023 Note HNO ID: [id number] Author: JANIS GATES MD Service: Otolaryngology Author Type: Resident Type: Progress Notes Filed: 06/20/2023 07:09 Note Text: [facility] - HEAD AND NECK SURGERY PROGRESS NOTE PAGE [phone] AFTER 1700 AND ON WEEKENDS Patient Name: Gail Almeida Age: [age] year old Sex: female Date: June 20, 2023 Admission Date: 06/18/2023 Hospital Day: 0 ASSESSMENT/PLAN: Gail Almeida is a 67 year old female who is 2 Days Post-Op from Procedure(s): THYROIDECTOMY TOTAL Afebrile and with vital signs stable. No numbness or tingling perioral. COURTNEY output >50 cc's last 24 hours. Neck incision c/d/I. Calcium high. Will discontinue Rocalcitrol. CaCo3 once a day FU PTH CMP, CBC, Mg, Phos Trend iCal COURTNEY output 90 - Analgesia: Tylenol, oxy, tramadol - Antibiotics: Ancef - AC: Lovenox - FEN: Regular - Wound Care: Bacitracin to incisions BID until POD3, Aquaphor afterwards. - Drains: serousanguinous, Strip drains q4h, record output q8h - Dispo: please transfer to G81 Janis Gates, PGY-2, Otolaryngology Service Pager: [phone] Pager: [phone] June 19, 2023 9:13 AM For questions after 5 PM and on weekends, please page [phone]. SUBJECTIVE: No acute events overnight. Pain well-controlled with current regimen. Breathing well on RA. Tolerating diet. OBJECTIVE: Vitals: 06/19/23 2031 06/19/234 06/20/23 0046 06/20/23 0508 BP: 125/76 126/87 139/76 Pulse: 77 83 73 Resp: 16 16 16 16 Temp: 36.8 ?C (98.3 ?F) 36 ?C (96.8 ?F) 36 ?C (96.8 ?F) TempSrc: Oral Temporal Temporal SpO2: 95% 96% 95% 97% Weight: Height: Ins AND Outs: Date 06/19/23 07 - 06/20/23 0659 06/20/23699 - 06/21/23 0659 Shift 2337-3223 7075-9965 1288-4838 24 Hour Total 6810-3136 6219-7765 2649-6895 24 Hour Total INTAKE PO 4320 000 758 2175 PO 4320 340 215 3717 IV 100 100 Volume (mL) (ceFAZolin iv piggyback 2 g in D5W (iso-osmotic) 100 mL (ANCEF)) 100 100 Shift Total 4320 512 972 6282 OUTPUT Urine 500 7988 836 0420 Void (ml) 500 5531 672 6463 Urine Not Saved. 2 x 2 x Tubes 50 27.5 17.5 95 Drain/Tube Output (Drain/Tube 06/18/23 1449 [facility] [place] Throat) 50 27.5 17.5 95 Shift Total 550 1177.5 917.5 2645 Weight (kg) 65 65 65 65 65 65 65 65 Physical Examination: General: No acute distress Neuro: following commands, appropriate Cardiopulm: Well perfused, breathing non-labored, no hoarseness Face: Full and symmetric facial motion, no weakness Neck: soft, incisions c/d/i, no signs of hematoma, seroma Drains: LN COURTNEY x 1, serosanguinous and holding suction LABS: Blood: Recent Labs 06/20/23 0616 WBC 7.26 HB 14.0 HCT 42.6 PLT 201 MCV 96.4 MCH 31.7 MCHC 32.9 RDWCV 13.3 MPV 10.1 Recent Labs 06/20/23 0616 NA 140 K 4.0 CHLOR 104 CO2 26 BUN 26* CREAT 1.27* GLUC 113* CA 10.8* MG 1.8 P 4.9* No results for input(s): PCGLUCOSE in the last 72 hours. No results for input(s): CK , CKMB , MB , TROPT in the last 72 hours. No results for input(s): PTSEC , INR , APTT in the last 72 hours. No results for input(s): TBILI , CBILI , AST , ALT , ALKPHOS , TPROT , ALB , AMYLASE , LIPASE in the last 72 hours. No results for input(s): PH , PCO2 , PO2 , HCO3 , BE , LACT in the last 72 hours. Medications: Current Facility-Administered Medications Medication Dose Route Frequency calcium carbonate 1,250 mg tab(s) (OS-RL 500) 1,250 mg ORAL DAILY QUEtiapine 12.5 mg tab(s) (SEROquel) 12.5 mg ORAL BID 6a/1p ceFAZolin iv piggyback 2 g in D5W (iso-osmotic) 100 mL (ANCEF) 2 g INTRAVENOUS q 8 HR mometasone-formoterol 100-5 mcg/actuation 2 Puff inhaler (DULERA) 2 Puff INHALATION BID topiramate 25 mg tab(s) (TOPAMAX) 25 mg ORAL DAILY OLANZapine 5 mg tab(s) (ZYPREXA) 5 mg ORAL q 12 H PRN docusate sodium 100 mg cap(s) (COLACE) 100 mg ORAL DAILY cloNIDine HCl 0.1 mg tab(s) (CATAPRES) 0.1 mg ORAL DAILY benztropine 0.5 mg tab(s) (COGENTIN) 0.5 mg ORAL BID amantadine HCl 100 mg cap(s) (SYMMETREL) 100 mg ORAL BID albuterol HFA 90 mcg/actuation 1 Puff (PROVENTIL HFA, VENTOLIN HFA) 1 Puff INHALATION PRN NaCl 0.9% iv flush bag 20 mL INTRAVENOUS PRN acetaminophen 1,000 mg tab(s) (TYLENOL) 1,000 mg ORAL/FEEDING TUBE q 6 H Followed by [START ON 06/25/2023] acetaminophen 500 mg tab(s) (TYLENOL) 500 mg ORAL/FEEDING TUBE q 6 H oxyCODONE IR 5-10 mg tab(s) (ROXICODONE) 5-10 mg ORAL/FEEDING TUBE q 4 H PRN Or oxyCODONE 5-10 mg oral liquid (ROXICODONE) 5-10 mg ORAL q 4 H PRN bacitracin 500 unit/gram topical ointment TOPICAL BID enoxaparin 40 mg injection (LOVENOX) 40 mg SUBCUTANEOUS q 24 HR levothyroxine 112 mcg tab(s) (SYNTHROID) 112 mcg ORAL DAILY (6 AM) lithium carbonate 150 mg tab(s) 150 mg ORAL BID w MEALS famotidine 20 mg tab(s) (PEPCID) 20 mg ORAL DAILY QUEtiapine 400 mg tab(s) (SEROquel) 400 mg ORAL AT BEDTIME benzocaine-menthol 1 Lozenge (CHLORASEPTIC) 1 Lozeng (more content not included)... [facility] 06-19-2023 Note HNO ID: [id number] Author: JANIS GATES MD Service: Otolaryngology Author Type: Resident Type: Progress Notes Filed: 06/19/2023 09:16 Note Text: [facility] - HEAD AND NECK SURGERY PROGRESS NOTE PAGE [phone] AFTER 1700 AND ON WEEKENDS Patient Name: Gail Almeida Age: [age] year old Sex: female Date: June 19, 2023 Admission Date: 06/18/2023 Hospital Day: 0 ASSESSMENT/PLAN: Gail Almeida is a 67 year old female who is 1 Day Post-Op from Procedure(s): THYROIDECTOMY TOTAL Afebrile and with vital signs stable. No numbness or tingling perioral. COURTNEY output >50 cc's last 24 hours. Neck incision c/d/I. - Trend iCal - PTH 6. iCal within normal limits. However, will increase calcium carbonate TID, calcitriol BID - Analgesia: Tylenol, oxy, tramadol - Antibiotics: Ancef - AC: Lovenox - FEN: Regular - Wound Care: Bacitracin to incisions BID until POD3, Aquaphor afterwards. - Drains: serousanguinous, Strip drains q4h, record output q8h - Dispo: M81 Janis Gates, PGY-2, Otolaryngology Service Pager: [phone] Pager: [phone] June 19, 2023 9:13 AM For questions after 5 PM and on weekends, please page [phone]. SUBJECTIVE: No acute events overnight. Pain well-controlled with current regimen. Breathing well on RA. Tolerating diet. OBJECTIVE: Vitals: 06/18/23 2104 06/19/23 0108 06/19/23 0119 06/19/23 0519 BP: 155/79 157/71 143/75 Pulse: 82 65 73 Resp: Temp: 36.7 ?C (98.1 ?F) 36.6 ?C (97.9 ?F) 36.3 ?C (97.4 ?F) TempSrc: Oral Temporal Oral SpO2: 96% 98% 98% Weight: Height: Ins AND Outs: Date 06/18/23699 - 06/19/23 0659 06/19/23699 - 06/20/23 0659 Shift 4411-5774 6067-2509 6131-0895 24 Hour Total 8006-5155 5009-4061 6555-3650 24 Hour Total INTAKE PO 120 490 610 360 360 PO 120 490 610 360 360 IV 1100 2838 229 7754 OR Crystalloid intake (mL) 1100 1100 Volume (mL) (ceFAZolin iv piggyback 2 g in D5W (iso-osmotic) 100 mL (ANCEF)) 100 100 Volume (mL) (ceFAZolin iv piggyback 2 g in D5W (iso-osmotic) 100 mL (ANCEF)) 50 100 150 Volume (mL) (lactated ringers iv infusion) 125 125 Volume (mL) (lactated ringers iv infusion) 4726 049 7367 Volume (mL) (NaCl 0.9% iv infusion) 468 500 968 Shift Total 1100 1963 1090 4153 360 360 OUTPUT Urine 531 880 5888 300 300 Void (ml) 901 425 2520 300 300 Urine Incontinence/Not Saved 1 x 1 x Urine Not Saved. 1 x 1 x Tubes 40 17.5 57.5 Drain/Tube Output (Drain/Tube 06/18/23 1449 [facility] Throat) 40 17.5 57.5 Shift Total 690 417.5 1107.5 300 300 Weight (kg) 65 65 65 65 65 65 65 65 Physical Examination: General: No acute distress Neuro: following commands, appropriate Cardiopulm: Well perfused, breathing non-labored, no hoarseness Face: Full and symmetric facial motion, no weakness Neck: soft, incisions c/d/i, no signs of hematoma, seroma Drains: LN COURTNEY x 1, serosanguinous and holding suction LABS: Blood:No results for input(s): WBC , HB , HCT , PLT , MCV , MCH , MCHC , RDWCV , MPV , NEUTP , LYMPHP , MONOP , EODINP , BASOP , ABSNEUT , ABSLYM , ABSMONO , ABSEOSIN , ABSBASO in the last 72 hours. No results for input(s): NA , K , CHLOR , CO2 , BUN , CREAT , GLUC , CA , MG , P in the last 72 hours. No results for input(s): PCGLUCOSE in the last 72 hours. No results for input(s): CK , CKMB , MB , TROPT in the last 72 hours. No results for input(s): PTSEC , INR , APTT in the last 72 hours. No results for input(s): TBILI , CBILI , AST , ALT , ALKPHOS , TPROT , ALB , AMYLASE , LIPASE in the last 72 hours. No results for input(s): PH , PCO2 , PO2 , HCO3 , BE , LACT in the last 72 hours. Medications: Current Facility-Administered Medications Medication Dose Route Frequency calcium carbonate 1,250 mg tab(s) (OS-RL 500) 1,250 mg ORAL TID calcitriol 0.5 mcg cap(s) (ROCALTROL) 0.5 mcg ORAL BID QUEtiapine 12.5 mg tab(s) (SEROquel) 12.5 mg ORAL BID 6a/1p QUEtiapine 12.5 mg tab(s) (SEROquel) 12.5 mg ORAL ONCE mometasone-formoterol 100-5 mcg/actuation 2 Puff inhaler (DULERA) 2 Puff INHALATION BID topiramate 25 mg tab(s) (TOPAMAX) 25 mg ORAL DAILY OLANZapine 5 mg tab(s) (ZYPREXA) 5 mg ORAL q 12 H PRN docusate sodium 100 mg cap(s) (COLACE) 100 mg ORAL DAILY cloNIDine HCl 0.1 mg tab(s) (CATAPRES) 0.1 mg ORAL DAILY benztropine 0.5 mg tab(s) (COGENTIN) 0.5 mg ORAL BID amantadine HCl 100 mg cap(s) (SYMMETREL) 100 mg ORAL BID albuterol HFA 90 mcg/actuation 1 Puff (PROVENTIL HFA, VENTOLIN HFA) 1 Puff INHALATION PRN NaCl 0.9% iv flush bag 20 mL INTRAVENOUS PRN NaCl 0.9% iv infusion 0-100 mL/hr INTRAVENOUS CONTINUOUS acetaminophen 1,000 mg tab(s) (TYLENOL) 1,000 mg ORAL/FEEDING TUBE q 6 H Followed by [START ON 06/25/2023] acetaminophen 500 mg tab(s) (TYLENOL) 500 mg ORAL/FEEDING TUBE q 6 H oxyCODONE IR 5-10 mg tab(s) (ROXICODONE) 5-10 mg ORAL/FEEDING TUBE q 4 H PRN Or oxyCOD (more content not included)... [facility] 06-19-2023 Note HNO ID: [id number] Author: JONATHAN VALENCIA, TAWANNA Service: ? Author Type: Registered Nurse Type: Nursing Progress Note Filed: 06/19/2023 00:12 Note Text: Per Dr. Mendoza, draw PTH and ionized calcium together at 4 a.m. [facility] 06-18-2023 Note HNO ID: [id number] Author: JANETH VARGAS DO Service: ? Author Type: Physician Type: Anesthesia Procedure Notes Filed: 06/18/2023 12:59 Note Text: ANESTHESIOLOGY PROCEDURE NOTE PIV General Information Procedure Start Time/Medication Administration: 06/18/2023 12:17 PM Patient Location: OR Staffing Anesthesiologist: Janeth Vargas DO Performed by: anesthesiologist Preparation Sterility Preparation: hand hygiene performed prior to procedure, surgical cap used, mask used, skin prep agent completely dried prior to procedure Site Prep: alcohol Procedure Details Indication: need for IV access Needle Size/Type: 18 gauge angiocath Orientation: Left Location: Forearm Imaging Guidance Used: Yes Image in Chart: No SIGNATURE: Janeth Vargas DO PATIENT NAME: Gail Almeida DATE: June 18, 2023 TIME: 12:58 PM CSN: [id number] [facility] 06-18-2023 Note HNO ID: [id number] Author: JANETH VARGAS DO Service: ? 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 Staffing Anesthesiologist: Janeth Vargas DO Resident: Deepak Hernandez MD Performed by: resident and anesthesiologist Indications and Patient Condition Indications for airway management: anesthesia Preoxygenated: yes anesthesia circuit Patient position: sniffing Method: asleep Final Airway Details Final airway type: endotracheal airway Final Endotracheal Airway: NIM tube Cuffed: yes Successful intubation technique: video laryngoscopy Devices used: [employer] Endotracheal tube insertion site: oral Blade: Christiano Blade size: #3 ETT size (mm): 6.0 Measured from: lips Measurement (cm): 20 Placement verified by: capnometry Cormack-Lehane Classification: grade I - full view of glottis Number of attempts at approach: 1 Comments Attending Note For the bedside procedure, I was physically present during the entire procedure. Resident placed the ETT, under direct supervision and the remainder of the procedure was performed by the primary surgeon/proceduralist with assistance. Signature: Janeth Vargas, Date: 06/18/2023 Time: 12:52 PM SIGNATURE: Deepak Escudero MD, MD PATIENT NAME: Gail Almeida DATE: June 18, 2023 TIME: 12:45 PM CSN: [id number] [facility] 05-30-2023 Note HNO ID: [id number] Author: Yandel Daniel MD Service: ? Author Type: Physician Type: Progress Notes Filed: 05/30/2023 2:42 PM Note Text: [facility] Note CC: Preoperative appointment HPI: Gail Almeida is a 67 year old female presenting with history of schizoaffective disorder, bipolar disorder, COPD that presents with thyroid enlargement. She is scheduled for total thyroidectomy on 06/18/2023. She saw [facility] today and is all clear for surgery. Current Outpatient Medications Medication Sig Dispense Refill acidophilus-pectin, citrus 100 million cell-10 mg cap Take by mouth. Fluticasone Furoate 27.5 mcg/actuation nasal spray Use 2 Sprays in each nostril once daily. mecobalamin (B12 ACTIVE ORAL) Take 800 mcg by mouth once daily. amantadine HCl (SYMMETREL) 100 mg capsule Take 100 mg by mouth two times a day. benzonatate (TESSALON PERLE) 100 mg capsule Take 100 mg by mouth once daily. benztropine (COGENTIN) 0.5 mg tablet Take 0.5 mg by mouth two times a day. cloNIDine HCl (CATAPRES) 0.1 mg tablet Take 0.1 mg by mouth once daily. docusate sodium (COLACE) 100 mg capsule Take 100 mg by mouth once daily. folic acid 800 mcg tablet Take 800 mcg by mouth once daily. lithium carbonate (ESKALITH) 150 mg capsule Take 150 mg by mouth two times a day with meals. loratadine (CLARITIN) 10 mg tablet Take 10 mg by mouth once daily. meloxicam (MOBIC) 15 mg tablet Take 15 mg by mouth once daily. QUEtiapine XR (SEROQUEL XR) 400 mg 24 hr tablet Take 400 mg by mouth daily at bedtime. RISPERDAL CONSTA 25 mg/2 mL injection Inject 25 mg intramuscularly every 2 weeks. topiramate (TOPAMAX) 25 mg tablet Take 25 mg by mouth once daily. famotidine (PEPCID) 20 mg tablet Take 20 mg by mouth two times a day. albuterol HFA (PROVENTIL HFA, VENTOLIN HFA) 90 mcg/actuation inhaler Inhale 1 Puff as instructed as needed. OYSTER SHELL CALCIUM-VITAMIN D 500 mg-5 mcg (200 unit) per tablet WIXELA INHUB 250-50 mcg/dose inhaler Inhale 1 Puff as instructed two times a day. MUCUS DM 30-600 mg per tablet Take 1 tablet by mouth every 12 hours as needed. oplyer-toanfwrj-sfnhaas (ENZADYNE) 9,000-112,500- 112,500 unit capsule Take 1 capsule by mouth daily with food. nystatin (MYCOSTATIN) cream Apply to affected area two times a day. OLANZapine (ZYPREXA) 5 mg tablet Take 5 mg by mouth every 12 hours as needed. No current facility-administered medications for this visit. EXAM: Constitutional - General Appearance: well developed, well nourished, without obvious deformities Communication: speaks with a normal voice without hoarseness Head AND Face - Overall: no obvious scars, lesions or masses Facial strength: normal and equal bilaterally Oral Cavity and oropharynx: mucosa, hard and soft palates, tongue, tonsil area, posterior pharyngeal wall, lips and gums are without lesions Neck: large palpable thyroid, L > R Neuro: CN III - CN XII grossly intact RADIOLOGY: 05/30/23 CT Neck RESULT: There is prominent heterogeneous enlargement of the thyroid gland compatible with goiter, largest on the left side. It contains multifocal hypoenhancing cystic components, and a calcified nodule anteriorly. Maximal orthogonal measurements of the left lobe are 10.5 SI by 5.1L are by 4.3 AP centimeters. Maximal orthogonal measurements of the right lobe are 10.2 SI by 3.3 LR by 3.7 AP centimeters. The isthmus is also abnormally thickened at 2.2 cm. Inferiorly the thyroid gland extends greatest on the right down to the level of the left subclavian vein. Superiorly it extends to the level of the hyoid. There is near total encirclement of the thyroid cartilage, without compressive or invasive affects. The margins are all well-defined with no suggestion of invasiveness. More inferiorly there is mild left right narrowing of the trachea. Inferior views of the brain are within normal limits. The globes and orbits are symmetric and normal. The paranasal sinuses, mastoid air cells and middle ear chambers are all clear. The nasal cavity and nasopharynx are normal. The oral cavity is unremarkable. The hypopharynx shows mild midline shift to the left due to the goiter. Accounting for technique the major cervical vessels maintain normal course and caliber, with some posterior displacement due to the goiter, but no encirclement. Views of the lung apices show some minor dependent changes. Is no suspicious osseous lesion. There is no lymphadenopathy or soft tissue mass ASSESSMENT: Gail Almeida is a 67 year old female presenting with history of schizoaffective disorder, bipolar disorder, COPD that presents with thyroid enlargement. She has significant compression of her airway. She is scheduled for total thyroidectomy on 06/18/2023. On examination, patient has a nontender palpable enlarged thyroid. Discussed with patient that based on her imaging, would recommend proceeding with total thyroidectomy as scheduled (more content not included)... [facility] 05-30-2023 Note HNO ID: [id number] Author: Alea Smith RT(R) Service: Radiology Author Type: Technologist Type: Progress Notes Filed: 05/30/2023 10:19 AM Note Text: Radiology Service Progress Note PATIENT NAME: Gail Almeida DATE OF SERVICE: May 30, 2023 TIME: 10:19 AM PATIENT IDENTITY VERIFICATION COMPLETED USING TWO (2) IDENTIFIERS: Name and Date of confirmed by patient verbally and Name and Date of confirmed by identification band. FALL SCREENING: Has the patient had 2 falls in the last year or 1 fall with injury or currently using an Ambulatory Assistive Device (Walker, Cane, Wheelchair, Crutches, etc.)? No PATIENT GENDER DATA: Female. status: : No status: NO. PATIENT RELEVANT IMPLANT DATA REVIEWED: Not Applicable RADIOLOGY DEPARTMENT: CT; Exam(s) Completed: Neck PERIPHERAL IV DATA: Site assessment: Clean,Dry and Intact, Site disposition Discontinued SIGNED BY: RT Mendoza(R) May 30, 2023 10:19 AM [facility] 04-11-2023 Note HNO ID: [id number] Author: Yandel Daniel MD Service: ? Author Type: Physician Type: Progress Notes Filed: 04/12/2023 3:08 PM Note Text: Head and Neck Surgery New Patient History and Physical Patient: Gail Almeida Age: [age] year old Provider: Yandel Daniel MD Date of visit: 04/11/2023 Chief Complaint: Patient presents with: New Patient: Thyromegaly This consult was requested by No ref. provider found for an opinion regarding thyroid nodule. My final recommendations will be communicated to the requesting provider by way of shared EMR or letter via the US mail. History of Present Illness: Gail Almeida is a 67 year old female presenting with history of schizoaffective disorder, bipolar disorder, COPD that presents with thyroid enlargement. Enlargement started 6-7 months ago and has been consistently getting bigger. No difficulty swallowing or breathing. Denies changes in voice. Non tender. Patient has been on lithium for the last 30-40 years, and it works great for her. Patient is tolerating a full diet by mouth, maintaining their weight, and energy level is stable. She denies any history of dysphagia, odynophagia, dysphonia, throat pain, otalgia, cough, hemoptysis, epistaxis, dysarthria, trismus, dyspnea, fever, chills, night sweats, or unintentional weight loss. Risk Factors: She has no history of alcohol and abuse. Has been smoking on/off for over the last 40 years. She denies any exposure to radiation and has no significant sun exposure history. There is no family history of head and neck cancer. As stated on new patient questionnaire and update in the past medical history, past surgical history, medications, allergies, family history, social history, and review of systems below. For further details please see patient questionnaire scanned into [employer]. History: No past medical history on file. No past surgical history on file. No family history on file. Social History Tobacco Use Smoking status: Every Day Years: 40 Types: Cigarettes Smokeless tobacco: Never Current Medication: No current outpatient medications on file. No current facility-administered medications for this visit. Allergies: ALLERGIES Allergen Reactions Aspirin Other: See Comments Shock Barbituates [Barbit* Unknown Codeine Unknown Demerol [Meperidine] Unknown Fluoxetine Unknown Ibuprofen Unknown Penicillins Other: See Comments Turns blue Sulfa (Sulfonamide * Intolerance bad taste/odor Review of Systems - A 12-point review of systems was performed and negative except for previously noted. Please refer to the patient questionnaire scanned into [employer]. Physical Exam: Vitals - There were no vitals taken for this visit. Constitutional - General Appearance: Normocephalic and atraumatic. Well developed, well nourished. Communication: Speaks with a normal voice without hoarseness. Head AND Face - Overall: No obvious scars, lesions or masses. Parotid and submandibular glands: No masses bilaterally and without any asymmetry. Facial strength: Normal and equal bilaterally. Eyes - Pupils are round and reactive. Extraocular muscles grossly intact. Sclerae and conjunctivae noninjected and anicteric. Ear, Nose, Mouth AND Throat - Ears: No external deformities. Nasal exam: No external deformities. Mastication: There is no significant trismus. Oral Cavity: No mucosal lesions. Tongue is soft, midline, and mobile bilaterally. Floor of mouth is soft. Palate is intact and elevates symmetrically. Oropharynx: The oropharynx is clear and symmetric. The base of tongue is soft. No masses visualized or palpated. Neck: Significantly enlarged thyroid, approximately 3 inches, principally on L side, soft, nontender Skin - No edema, no discoloration, no ulceration, no masses or lesions. Respiratory - Normal work of breathing on room air. No stridor or abnormal breath sounds. Neurologic - General: Alert and oriented x 3. No obvious focal deficits. Cranial Nerves: II: Pupillary reflexes normal III, IV, : EOM normal V: 1,2,3: normal sensation VII: Normal strength in all divisions IX, X: Normal voice, palatal elevation and sensation XI: Shoulder strength normal XII: Tongue mobility normal Procedure: Review of Pathology and Radiologic Records and Images: Previous operative, pathology, and radiological reports and/or images were reviewed and filed in the permanent chart. This is notable for: CT neck 08/2021 Labs: Assessment: There is no problem list on file for this patient. Ms. Gail Almeida is a 67 year old female who presents with thyroid goiter in the context of long-standing lithium use for management of psychiatric disorders. Patient denies any compressive symptoms from her enlarged thyroid. Additionally, no symptoms of hypo or hyperthyroidism. Possible thyroidectomy per patient desire, will involve endocrinology for (more content not included)... [facility] 03-28-2023 Discharge summary Note Date/Time March 28, 2023 1:30pm [place] [address] Discharge Summary Signed Patient: Gail Almeiad MR#: [id number] : 1955 Acct:[id number] Age/Sex: 67 / F Adm Date: 3 Loc: Room: [address] [place] [address]: Joe Davis MD Copies to: NON STAFF Joe Davis MD~ Providers Date of Discharge: 03/28/23 Discharging Provider: Joe Davis Primary Care Provider: NON STAFF Consults: 03/26/23 09:05 Consult to Adult Hospitalist Routine Discharge Diagnosis (1) Schizoaffective disorder: (2) MYESHA (acute kidney injury): (3) Nausea & vomiting: Final Diagnosis Final Discharge Diagnosis: As above. Summary Hospital Course Hospital course: Patient was personally seen by me on the day of the encounter. I reviewed the history and performed the courtney elements of the assessment. I formulated the planof care and confirmed this with the medical student as noted below Ms. Almeida is a 67 year old female with past history of schizoaffective and bipolar disorder who presented due to concern of disruptive behavior at her assisted living facility, [facility]. Patient was previously admitted earlierthis month due to a medication miscommunication regarding her Seroquel in which she stopped taking the medication and appeared to be in a manic episode. Cardiology reports indicate her QTc is not prolonged and Seroquel could be continued safely. She was scheduled to receive her Risperdal Consta 25 mg/2ml on03/05/23 but the MAR from [facility] did not indicate whether she received it.Her facility was contacted and it was confirmed she received the injection on 03/19/23 and is due for her next injection 04/01/23. Continue Risperdal Consta Q2W after next injection. On day 1 of admission, patient began having episodes of emesis. Hospitalist services was consulted and a CT scan was ordered. CT scanwas significant for multiple renal cortical calcifications and suspected cysts but no evidence of obstructive uropathy. Urine culture was also insignificant for any growth. Patient received Zofran and Protonix and fluid intake was encouraged and her symptoms have since resolved. Patient also complained of cough and congestion and received Flonase which has since resolved. She has beenable to tolerate food and liquids and is feeling much better today with no episodes of emesis. During admission patient was cooperative and never appeared agitated. Low dose Seroquel 12.5 mg PO BID has been added with goal to slowly increase Seroquel dose to avoid cerebral side effects. Zyprexa 5 mg p.o. Q6 PRN started for agitation. Plan for next Risperdal Consta injection at [facility] facility 04/01/23 then continue Q2W. Physical exam: Const: alert, awake, and oriented x3 Nutritional Appearance: average body habitus HEENT: Head normal to inspection, hearing grossly normal bilaterally, external nose normal, face symmetric Eyes: appearance normal, both eyes and all related structures, sclerae normal Neck: normal visual inspection and full ROM Resp: normal respiratory effort and able to speak in complete sentences Cardio: regular rate GI: normal to inspection Skin: no rashes or lesions appreciated Neuro: CNI: Normal olfaction CNI: normal olfaction CNII: Visual carpenter intact, CNIII,IV,: EOM intact, no nystagmus. Pupils equal, round, reactive to light and accommodation, CNV: Sensation intact to light touch, CNVII: Raises eyebrows,smile/frown, puff out cheeks symmetrically, CNVIII: Hearing intact bilaterally, CNIX,X: Voice normal, soft palate elevation normal, symmetrical, CNXI: Shoulder shrug strong, equal bilaterally, CNXII: Tongue protrusion midline, movement symmetrical. Extrem: normal to inspection and full ROM Mental Status Exam: Appearance: grossly normal Mental Status: mental status grossly normal Mood: euthymic Affect: euthymic Speech and Movement: speech and movement normal and speech clear Attitude: cooperative Thought Process: normal Thought Content: Denies hallucinations, homicidality and suicidality Insight: fair Judgment: fair Condition Condition at Discharge: Stable Status at Discharge Functional status at discharge: independent ambulation Overall status at discharge: patient is back to baseline Time Spent with Patient Time spent providing/coordinating discharge services (# min): 39 Diagnostic Studies Completed and Pending Studies Pending studies at discharge: 03/26/23 21:20 Urine Culture Routine Preliminary micro results at discharge 03/26/23 21:20 Urine Culture - Preliminary Urine - Clean-Voided Midstream Gram Negative Bacilli Exam Physical Exam Vital Signs: Temp Pulse Resp BP Pulse Ox O2 Del Method 97.9 F 95 H 18 121/71 95 Room Air 03/28/23 07:30 03/28/23 07:30 03/28/23 07:30 03/28/23 07:30 03/28/23 07:30 03/28/23 07:30 Discharge Plan Discharge Plan Patient Disposition: Home Activity: No Activity Restriction Comment: Assisted Living- [facility] Diet: Regular Additional Instructions: Important Contact Information You can call [facility] at [phone] any time day or night if you have emergent questions or question regarding discharge instructions. If at any time you are feeling an increase inyour psychiatric symptoms, call your physician or behavioral healthcare provider. If any time you have thoughts of harming yourself or others contact one of the following: Call 88 (available 24/12) Crisis Text Line (available 24/12) text 4HOPE to [phone] [facility] Hope Line (available 8 a.m. Midnight) call [phone] ([phone]) Next Risperidal Consta injection Due 04/02/23 Instructions: Schizoaffective Disorder (DC), [facility] DC Instructions Prescriptions: New quetiapine 25 mg Tablet 12.5 mg PO BID@0900,1400 15 Days Qty: 30 2RF olanzapine 5 mg Tablet 5 mg PO Q12HR PRN (Reason: Agitation) 15 Days Qty: 30 0RF Continued amantadine HCl 100 mg tablet 100 mg PO BID clonidine HCl 0.1 mg tablet 0.1 mg PO DAILY benztropine 0.5 mg tablet 0.5 mg PO BID meloxicam 15 mg Tablet 15 mg PO DAILY Rx Instructions: give 1 table by mouth once daily (No other NSAIDS) topiramate 25 mg tablet 25 mg PO QHS lithium carbonate 150 mg capsule 150 mg PO BID famotidine 20 mg Tablet 20 mg PO BID loratadine 10 mg Tablet 10 mg PO DAILY Risperdal Consta 25 mg/2 mL suspension,extended rel recon 25 mg IM Q2W Patient Comments: due 03/19/23 not given by assisted living facility per MAR Acidophilus Capsule 1 cap PO DAILY fluticasone propionate 50 mcg/actuation [place],Suspension 1 spray INTRANASAL BID Rx Instructions: inhale 1 spray into each nostril twice a day folic acid 800 mcg Tablet 800 mcg PO DAILY cyanocobalamin (vitamin B-12) [Vitamin B-12] 500 mcg Tablet 500 mcg PO DAILY albuterol sulfate 90 mcg/actuation Hfa Aerosol Inhaler 2 puff INHALATION Q6H PRN (Reason: Shortness Of Breath Or Wheezing) docusate sodium 100 mg capsule 100 mg PO HS polyethylene glycol 3350 17 gram/dose powder 17 g PO DAILY PRN (Reason: Constipation) Rx Instructions: dissolve in 4-8 oz liquid before administration by mouth every day quetiapine 400 mg tablet extended release 24 hr 400 mg PO QHS 30 Days Qty: 30 0RF Changed fluticasone propion-salmeterol [Wixela Inhub] 250-50 mcg/dose blister with device 1 inh INHALATION BID Qty: 60 0RF Discontinued benzonatate 100 mg Capsule 100 mg PO DAILY hydrocodone-acetaminophen 5-325 mg Tablet 0.5 tab PO Q6H PRN (Reason: Pain) hydrocodone-acetaminophen 5-325 mg Tablet 1 tab PO Q6H PRN (Reason: Pain) Mucus DM 30-600 mg tablet extended release 12 hr 1 tab PO Q12H PRN (Reason: Congestion) Follow Up: [facility] [Other] (Long Acting Injetion Risperdal Consta Due 04/02/23) [facility] [Outside] - 04/02/23 12:15 pm (Case Management: A rifle case repairer will call you tomorrow, 03/29/23 between 8:00am and 5:00pm. Psychiatrist: Saturday04/02/23 @ 12:15pm with Dr. Munoz) Karla Clark APRN, SOLIDS CONTROL TECHNICIAN-C [Referring] - Documented By: Joe Davis MD 3 [id number] Signed By: <Electronically signed by Joe Davis MD> 03/28/23 1330 [facility] Work Phone: [phone] 672-886410-26-2023 Hospital Discharge instructions Additional Instructions Important Contact Information You can call [facility] at [phone] any time day or night if you have emergent questions or question regarding discharge instructions. If at any time you are feeling an increase in your psychiatric symptoms, call your physician or behavioral healthcare provider. If any time you have thoughts of harming yourself or others contact one of the following: Call 8 (available 24/12) Crisis Text Line (available 24/12) text 4HOPE to [phone] [facility] Hope Line (available 8 a.m. Midnight) call [phone] ([phone]) Next Risperidal Consta injection Due 04/02/23[facility] Work Phone: [phone]) 631-877410-25-2023 Progress note Author Joe rodriguez [facility] March 27, 2023 11:29am Note Date/Time March 27, 2023 1 1:29am [facility] [address] [place] [address] Psychiatry Progress Note Signed Patient: Gail Almeida MR#: [id number] : 1955 Acct:[id number] Age/Sex: 67 / F Adm Date: 3 Loc: 1S Room: [address] [place] [address] Type : ADM INOo Attending Dr: Joe Davis MD Copies to: ~ Date of Service: 03/27/2023 Subjective Subjective Narrative: Ms. Alemida states she is feeling better this morning. Yesterday morning around 08:00 she began experiencing emesis. After receiving her medications in the morning she began feeling nauseous and had four episodes of emesis after taking three medications. An attempt to give her the rest of her medications later in the morning resulted in another episode of emesis. Temperature was taken and waswithin normal limits. Patient attempted to eat which resulted in another episodeof emesis. She continued to have bout of emesis throughout the rest of the evening. Hospitalist was consulted and a CT scan was ordered. CT scan significant for multiple renal cortical calcifications and suspected cysts but no evidence of obstructive uropathy. Urine culture was also ordered and largely unremarkable with evidence of bacterial skin contaminants. This morning she states she had a couple episodes of emesis around 6:30 but has felt better sincereceiving Zofran. She complains of feeling weak but believes it to be due to lack of eating. She also complains of increased phlegm and believes it to be dueto her COPD. Overall, she states she is feeling much better and has been able toget up and walk around. She understands the importance of trying to drink fluids. Patient was personally seen by me on the day of the encounter. I reviewed the history and performed the courtney elements of the assessment. I formulated the planof care and confirmed this with the medical student as noted below Mental Status Exam: Appearance: grossly normal Mental Status: mental status grossly normal Mood: euthymic Affect: euthymic Speech and Movement: speech and movement normal and speech clear Attitude: cooperative Thought Process: normal Thought Content: Denies hallucinations, homicidality and suicidality Insight: fair Judgment: fair Exam Physical Exam Vital Signs: Temp Pulse Resp BP Pulse Ox O2 Del Method 97.8 F 77 16 144/83 H 99 Room Air 03/27/23 07:30 03/27/23 07:30 03/26/23 21:09 03/27/23 07:30 03/27/23 07:30 03/27/23 07:30 Objective Labs Labs: Abnormal Labs 03/26/23 03/26/23 03/26/23 19:31 19:31 21:20 RBC Hgb Lymph # (Auto) 0.4 L Chloride 120 H Carbon Dioxide 20.4 L Anion Gap 5.5 L Glucose 119 H Urine Ketones 1+ H Urine Occult Blood Trace H Ur Leukocyte Esterase 3+ H Urine WBC 20-49 H 03/27/23 03/27/23 05:59 05:59 RBC 3.54 L Hgb 11.5 L Lymph # (Auto) Chloride 115 H Carbon Dioxide 19.3 L Anion Gap Glucose 110 H Urine Ketones Urine Occult Blood Ur Leukocyte Esterase Urine WBC Assessment/Plan Assessment/Plan (1) Schizoaffective disorder: Code(s): F25.9 - Schizoaffective disorder, unspecified Status: Acute (2) MYESHA (acute kidney injury): Code(s): N17.9 - Acute kidney failure, unspecified Status: Acute (3) Nausea & vomiting: Code(s): R11.2 - Nausea with vomiting, unspecified Status: Acute Plan Admit to 1S and continue to monitor mental status. Continue home med regimen QTc appeared prolonged. However, corrected QTc reveals patient does not have prolonged QTc and Seroquel and Risperdal can be resumed per cardiology on 03/14/23. Continue Seroquel 400 mg p.o. QHS and add low dose Seroquel 12.5 mg PO BID Hospitalist consulted for managing co-morbid medical problems. CT scan significant for multiple renal cortical calcifications and suspected cyst which is similar to previous CT 03/14/23. No evidence of obstructive uropathy. Urine culture largely unremarkable mixed with bacterial skin contaminants. Continue Flonase spray intranasal BID. Continue Zofran 4 mg IV Q6H Encourage increased fluid intake. Verify last injection of Risperdal Consta and continue accordingly. Encourage group participation. Documented By: Joe Davis MD 3 [id number] Signed By: <Electronically signed by Joe Davis MD> 03/27/23 4245 [facility] Work Phone: [phone] 179-474510-25-2023 History and physical note Author Joe rodriguez [facility] March 27, 2023 9:05am Note Date/Time March 27, 2023 9 :05am [facility] [address] [place] [address] Psychiatry H&P Signed Patient: Gail Almeida MR#: [id number] : 1955 Acct:[id number] Age/Sex: 67 / F Adm Date: 3 Loc: 1S Room: [address] [place] [address] Type: ADM INOo Attending Dr: Joe Davis MD Copies to: NON STAFF Joe Davis MD~ Date of Service: 03/26/2023 HPI History of Present Illness History of present illness: Ms. Almeida is a 67 year old female with reported past history of schizoaffectiveand bipolar disorder who presented due to concern of disruptive behavior last night at assisted living facility. She has mixed relations with the director of care and is unhappy at the facility. When asked to discuss more about the disruptive behavior she declined to answer. Patient was recently admitted earlier this month due to medication miscommunication regarding Seroquel. She stopped taking it due to the miscommunication and was found to be manic. She wasscheduled to receive Risperdal Consta 25mg/2ml on March 05 but the MAR from her assisted living facility may indicate she has not yet received the injection. She denies visual or auditory hallucinations. She denies suicidal andhomicidal ideation. She did mention that she was experiencing an intense headache and was requesting medication. She also feels as though her COPD is flaring and was coughing on examination. Past psych history: schizoaffective and bipolar disorder Past hospitalizations: Admits to past psychiatric hospitalizations Past suicide attempts: Denies any previous suicide attempt Previous medications: Seroquel, Lithane, Vistaril, Congentin, Catapres Alcohol and drug use: Denies use of alcohol or drugs Living: assisted living Review of symptoms: Constitutional: Denies fevers and chills Eyes: Denies change in vision ENT: Denies abnormal hearing Cardiovascular: Denies chest pain Respiratory: Admits to cough. Denies SOB Gastrointestinal: Denies change in bowel habits Genitourinary: Denies dysuria Musculoskeletal: Admits to headache Psychiatric: Reports schizoaffective disorder. Denies suicidal ideations. Physical exam: Const: alert, awake, and oriented x3 Nutritional Appearance: average body habitus HEENT: Head normal to inspection, hearing grossly normal bilaterally, external nose normal, face symmetric Eyes: appearance normal, both eyes and all related structures, sclerae normal Neck: normal visual inspection and full ROM Resp: normal respiratory effort and able to speak in complete sentences Cardio: regular rate GI: normal to inspection Skin: no rashes or lesions appreciated Neuro: CNI: Normal olfaction CNI: normal olfaction CNII: Visual carpenter intact, CNIII,IV,: EOM intact, no nystagmus. Pupils equal, round, reactive to light and accommodation, CNV: Sensation intact to light touch, CNVII: Raises eyebrows,smile/frown, puff out cheeks symmetrically, CNVIII: Hearing intact bilaterally, CNIX,X: Voice normal, soft palate elevation normal, symmetrical, CNXI: Shoulder shrug strong, equal bilaterally, CNXII: Tongue protrusion midline, movement symmetrical. Extrem: normal to inspection and full ROM Mental Status Exam: Appearance: grossly normal Mental Status: mental status grossly normal Mood: euthymic Affect: constricted Speech and Movement: speech and movement normal and speech clear Attitude: cooperative Thought Process: normal Thought Content: Denies hallucinations, homicidality and suicidality Insight: fair Judgment: fair [facility] Medical History (Updated 03/26/23 @ 18:06 by Mariana Pryor APRN) Anxiety Arthritis Asthma Back pain Bipolar disorder Chronic bronchitis COPD (chronic obstructive pulmonary disease) Depression Diabetes mellitus type 2, controlled, without complications GERD (gastroesophageal reflux disease) Heart attack Localized swelling, mass and lump, neck Migraine Parkinson disease RBBB Schizoaffective disorder Sinus drainage chronic Smoker Thyroid lesion Vision loss Surgical History History of hysterectomy History of tubal ligation Hx of breast lump removal rt-benign Family History Father H/O heart artery stent CAD (coronary artery disease) Mother Recurrent strokes Brother CHF (congestive heart failure) Muscular dystrophy Social History Smoking Status: Current every day smoker Tobacco Type: cigarettes Substance Use Type: None Social History Comments: alone in apartment Meds Medications and Allergies Allergies aspirin Allergy (Verified 03/12/23 01:08) shock Barbiturates Allergy (Verified 03/12/23 01:08) Unknown Reaction codeine Allergy (Verified 03/12/23 01:08) Unknown Reaction fluoxetine Allergy (Verified 03/12/23 01:18) Unknown Reaction ibuprofen Allergy (Verified 03/12/23 01:18) Unknown Reaction meperidine Allergy (Verified 09/13/22 06:58) Unknown Reaction Penicillins Allergy (Verified 03/12/23 01:08) Swelling of Lip/Tongue/Throat Sulfa (Sulfonamide Antibiotics) Allergy (Verified 03/12/23 01:08) nausea; strange odor sulfamethoxazole [From Bactrim] Allergy (Verified 03/12/23 01:08) Unknown Reaction trimethoprim [From Bactrim] Allergy (Verified 03/12/23 01:08) Unknown Reaction Home Medications amantadine HCl 100 mg tablet 100 mg PO BID 09/11/22 [History Confirmed 03/26/23] benztropine 0.5 mg tablet 0.5 mg PO BID 09/11/22 [History Confirmed 03/26/23] clonidine HCl 0.1 mg tablet 0.1 mg PO DAILY 09/11/22 [History Confirmed 03/26/23] famotidine 20 mg tablet 20 mg PO BID 09/11/22 [History Confirmed 03/26/23] lithium carbonate 150 mg capsule 150 mg PO BID 09/11/22 [History Confirmed 03/26/23] loratadine 10 mg tablet 10 mg PO DAILY 09/11/22 [History Confirmed 03/26/23] meloxicam 15 mg tablet 15 mg PO DAILY 09/11/22 [History Confirmed 03/26/23] risperidone microspheres 25 mg/2 mL intramuscular susp,ext release (Risperdal Consta) 25 mg IM Q2W 09/11/22 [History Confirmed 03/26/23] topiramate 25 mg tablet 25 mg PO QHS 09/11/22 [History Confirmed 03/26/23] benzonatate 100 mg capsule 100 mg PO DAILY 09/13/22 [History Confirmed 03/26/23] docusate sodium 100 mg capsule 100 mg PO HS 03/12/23 [History Confirmed 03/26/23] fluticasone 250 mcg-salmeterol 50 mcg/dose blistr powdr for inhalation (Advair Diskus) 1 inh inhalation BID 03/12/23 [History Confirmed 03/26/23] polyethylene glycol 3350 17 gram/dose oral powder 17 g PO DAILY PRN Qnapufsizyit14/10/23 [History Confirmed 03/26/23] quetiapine 400 mg tablet,extended release 24 hr 400 mg PO QHS depression 30 days#30 tabs 03/15/23 [Rx Confirmed 03/26/23] Lactobacillus acidophilus (Acidophilus capsule) 1 cap PO DAILY 03/26/23 [History Confirmed 03/26/23] albuterol sulfate 90 mcg/actuation aerosol inhaler 2 puff inhalation Q6H PRN Shortness Of Breath Or Wheezing 03/26/23 [History Confirmed 03/26/23] cyanocobalamin (vitamin B-12) 500 mcg tablet (Vitamin B-12) 500 mcg PO DAILY 03/26/23 [History Confirmed 03/26/23] dextromethorphan-guaifenesin 30 mg-600 mg tablet extended [id number] hr (Mucus DM) 1 tab PO Q12H PRN Congestion 03/26/23 [History Confirmed 03/26/23] fluticasone propionate 50 mcg/actuation nasal spray,suspension 1 spray intranasal BID 03/26/23 [History Confirmed 03/26/23] folic acid 800 mcg tablet 800 mcg PO DAILY 03/26/23 [History Confirmed 03/26/23] hydrocodone 5 mg-acetaminophen 325 mg tablet 0.5 tab PO Q6H PRN Pain 03/26/23 [History Confirmed 03/26/23] hydrocodone 5 mg-acetaminophen 325 mg tablet 1 tab PO Q6H PRN Pain 03/26/23 [History Confirmed 03/26/23] mometasone-formoterol HFA 200 mcg-5 mcg/actuation aerosol inhaler (Dulera) 2 puff inhalation BID 03/26/23 [History Confirmed 03/26/23] Exam Physical Exam Vital Signs: Temp Pulse Resp BP Pulse Ox O2 Del Method 97.9 F 81 20 148/80 H 97 Room Air 03/26/23 00:59 03/26/23 00:59 03/26/23 00:59 03/26/23 00:59 03/26/23 00:59 03/26/23 00:59 Results Labs 03/27/23 05:59 03/27/23 05:59 Assessment/Plan (1) Schizoaffective disorder: Code(s): F25.9 - Schizoaffective disorder, unspecified Status: Acute Plan Admit to and continue to monitor mental status. Continue home med regimen Hospitalist consult for managing co-morbid medical problems Verify last injection of Risperdal Consta and continue accordingly. Encourage group participation. Documented By: Joe Davis MD 3 [id number] Signed By: <Electronically signed by Joe Davis MD> 03/27/23 0905 [facility] Work Phone: [phone] 580-609410-24-2023 Consult note Author Jose Huang [facility] March 26, 2023 9:29pm Note Date/Time March 26, 2023 5 :27pm [facility] [address] [place] [address] Hospitalist Consult Note Signed Patient: Gail Almeida MR#: [id number] : 1955 Acct:[id number] Age/Sex: 67 / F Adm Date: 3 Loc: Room: [address] [place] [address] Type: ADM IN Attending Dr: Joe Davis MD Copies to: NON STAFF MD Mariana Vides, RODNEY Huang, DO~ HPI DATE OF CONSULTATION: 03/26/23 REQUESTING PROVIDER: Joe Davis Consult Narrative Reason for Consult: Nausea vomiting HPI: This is a 67 past medical history significant for COPD/asthma, hypertension, GERD, arthritis, tobacco use, schizoaffective, bipolar, diabetes, Parkinson's, long medication allergy list. Presented to outside hospital from her assisted living facility with mental health concerns. Transferred to [facility] for inpatient psychiatric admission. Hospitalist team is now consulted for nausea and vomiting. Note initial consult order was for COPD exacerbation but there are no complaints regarding this. Patient seen and examined. She currently denies any respiratory complaints. Nocough shortness of breath or pain with inspiration. Currently is reporting abdominal pain that is generalized as well as up into the left side. Staff indicates she is vomiting frequently today and unable to keep anything p.o. down. Patient indicates persistent nausea despite medications. Had normal bowel movement this morning. Denies constipation or diarrhea. Indicates normalp.o. intake until yesterday. Does endorse dysuria but denies hematuria. Patient had previous symptoms similar to this 2 weeks ago and was seen by this provider March 13, was treated with fosfomycin for abnormal urinalysis at thattime denies chest pain or palpitations. CT abdomen pelvis was done March 14 with no acute findings, no obstructive uropathy, punctate calcifications in bothkidneys cortical in location, no hydronephrosis. No headache or dizziness. No fevers or chills. Review of Systems Review of Systems All other systems reviewed & are negative unless noted below or in HPI [facility] Medical History (Updated 03/26/23 @ 18:06 by Mariana Pryor APRN) Anxiety Arthritis Asthma Back pain Bipolar disorder Chronic bronchitis COPD (chronic obstructive pulmonary disease) Depression Diabetes mellitus type 2, controlled, without complications GERD (gastroesophageal reflux disease) Heart attack Localized swelling, mass and lump, neck Migraine Parkinson disease RBBB Schizoaffective disorder Sinus drainage chronic Smoker Thyroid lesion Vision loss Surgical History History of hysterectomy History of tubal ligation Hx of breast lump removal rt-benign Family History Father H/O heart artery stent CAD (coronary artery disease) Mother Recurrent strokes Brother CHF (congestive heart failure) Muscular dystrophy Social History Smoking Status: Current every day smoker Tobacco Type: cigarettes Substance Use Type: None Social History Comments: alone in apartment Meds Medications and Allergies Allergies aspirin Allergy (Verified 03/12/23 01:08) shock Barbiturates Allergy (Verified 03/12/23 01:08) Unknown Reaction codeine Allergy (Verified 03/12/23 01:08) Unknown Reaction fluoxetine Allergy (Verified 03/12/23 01:18) Unknown Reaction ibuprofen Allergy (Verified 03/12/23 01:18) Unknown Reaction meperidine Allergy (Verified 09/13/22 06:58) Unknown Reaction Penicillins Allergy (Verified 03/12/23 01:08) Swelling of Lip/Tongue/Throat Sulfa (Sulfonamide Antibiotics) Allergy (Verified 03/12/23 01:08) nausea; strange odor sulfamethoxazole [From Bactrim] Allergy (Verified 03/12/23 01:08) Unknown Reaction trimethoprim [From Bactrim] Allergy (Verified 03/12/23 01:08) Unknown Reaction Home Medications amantadine HCl 100 mg tablet 100 mg PO BID 09/11/22 [History Confirmed 03/26/23] benztropine 0.5 mg tablet 0.5 mg PO BID 09/11/22 [History Confirmed 03/26/23] clonidine HCl 0.1 mg tablet 0.1 mg PO DAILY 09/11/22 [History Confirmed 03/26/23] famotidine 20 mg tablet 20 mg PO BID 09/11/22 [History Confirmed 03/26/23] lithium carbonate 150 mg capsule 150 mg PO BID 09/11/22 [History Confirmed 03/26/23] loratadine 10 mg tablet 10 mg PO DAILY 09/11/22 [History Confirmed 03/26/23] meloxicam 15 mg tablet 15 mg PO DAILY 09/11/22 [History Confirmed 03/26/23] risperidone microspheres 25 mg/2 mL intramuscular susp,ext release (Risperdal Consta) 25 mg IM Q2W 09/11/22 [History Confirmed 03/26/23] topiramate 25 mg tablet 25 mg PO QHS 09/11/22 [History Confirmed 03/26/23] benzonatate 100 mg capsule 100 mg PO DAILY 09/13/22 [History Confirmed 03/26/23] docusate sodium 100 mg capsule 100 mg PO HS 03/12/23 [History Confirmed 03/26/23] fluticasone 250 mcg-salmeterol 50 mcg/dose blistr powdr for inhalation (Advair Diskus) 1 inh inhalation BID 03/12/23 [History Confirmed 03/26/23] polyethylene glycol 3350 17 gram/dose oral powder 17 g PO DAILY PRN Qkmfusbznleu91/10/23 [History Confirmed 03/26/23] quetiapine 400 mg tablet,extended release 24 hr 400 mg PO QHS depression 30 days#30 tabs 03/15/23 [Rx Confirmed 03/26/23] Lactobacillus acidophilus (Acidophilus capsule) 1 cap PO DAILY 03/26/23 [History Confirmed 03/26/23] albuterol sulfate 90 mcg/actuation aerosol inhaler 2 puff inhalation Q6H PRN Shortness Of Breath Or Wheezing 03/26/23 [History Confirmed 03/26/23] cyanocobalamin (vitamin B-12) 500 mcg tablet (Vitamin B-12) 500 mcg PO DAILY 03/26/23 [History Confirmed 03/26/23] dextromethorphan-guaifenesin 30 mg-600 mg tablet extended [id number] hr (Mucus DM) 1 tab PO Q12H PRN Congestion 03/26/23 [History Confirmed 03/26/23] fluticasone propionate 50 mcg/actuation nasal spray,suspension 1 spray intranasal BID 03/26/23 [History Confirmed 03/26/23] folic acid 800 mcg tablet 800 mcg PO DAILY 03/26/23 [History Confirmed 03/26/23] hydrocodone 5 mg-acetaminophen 325 mg tablet 0.5 tab PO Q6H PRN Pain 03/26/23 [History Confirmed 03/26/23] hydrocodone 5 mg-acetaminophen 325 mg tablet 1 tab PO Q6H PRN Pain 03/26/23 [History Confirmed 03/26/23] mometasone-formoterol HFA 200 mcg-5 mcg/actuation aerosol inhaler (Dulera) 2 puff inhalation BID 03/26/23 [History Confirmed 03/26/23] Active Medications: Active Medications Generic Name Dose Route Start Last Admin Trade Name Freq PRN Reason Stop Dose Admin Acetaminophen 500 mg 03/26/23 01:03 Acetaminophen 500 Mg Tablet PO 03/25/24 01:02 Q6H PRN Fever or Pain Al Hydrox/Mg Hydrox/Simethicone 30 ml 03/26/23 01:03 Mag Hydrox/Al Hydrox/Simeth 30 Ml Udc PO 03/25/24 01:02 Q6H PRN Indigestion Albuterol 2 puff 03/26/23 05:49 Albuterol Hfa 60 Puff/8 Gram Inhaler INHALATION 03/25/24 05:48 Q6H PRN Shortness Of Breath Or Wheezing Amantadine HCl 100 mg 03/26/23 09:00 03/26/23 08:21 Amantadine 100 Mg Capsule PO 03/25/24 08:59 100 mg BID JOANNA Administration Benzonatate 100 mg 03/26/23 09:00 03/26/23 08:21 Benzonatate 100 Mg Capsule PO 03/25/24 08:59 100 mg DAILY JOANNA Administration Benztropine Mesylate 0.5 mg 03/26/23 09:00 03/26/23 08:22 Benztropine 0.5 Mg Tablet PO 03/25/24 08:59 0.5 mg BID JOANNA Administration Budesonide/Formoterol Fumarate 2 puff 03/26/23 09:00 03/26/23 09:09 Budesonide/Formoterol 160-4.5 Mcg 60 Puff/6 Gm Hfa.Aer.Ad INHALATION 03/25/24 08:59 Not Given BID JOANNA Clonidine HCl 0.1 mg 03/26/23 09:00 03/26/23 08:21 Clonidine 0.1 Mg Tablet PO 03/25/24 08:59 0.1 mg DAILY JOANNA Administration Cyanocobalamin 500 mcg 03/26/23 09:00 03/26/23 08:22 Cyanocobalamin 500 Mcg Tablet PO 03/25/24 08:59 500 mcg DAILY JOANNA Administration Docusate Sodium 100 mg 03/26/23 22:00 Docusate 100 Mg Capsule PO 03/25/24 21:59 HS JOANNA Famotidine 20 mg 03/26/23 09:00 03/26/23 08:22 Famotidine 20 Mg Tablet PO 03/25/24 08:59 20 mg BID JOANNA Administration Fluticasone Propionate 1 spray 03/26/23 09:00 03/26/23 08:22 Fluticasone Propionate [place]ampa 120 [place]/16 Gm Bottle INTRANASAL 03/25/24 08:59 1 spray BID JOANNA Administration Folic Acid 1 mg 03/26/23 09:00 03/26/23 08:21 Folic Acid 1 Mg Tablet PO 03/25/24 08:59 1 mg DAILY JOANNA Administration Guaifenesin/Dextromethorphan 1 tab 03/26/23 05:49 Guaif/Dextromethorphan 600-30mg Tab.Er.12h PO 03/25/24 05:48 Q12H PRN Congestion Hydroxyzine Pamoate 50 mg 03/26/23 01:03 Hydroxyzine Pamoate 50 Mg Capsule PO 03/25/24 01:02 Q6H PRN Anxiety Lact Acid/Bifidobact/Lact [place]/Streptoc Th 1 cap 03/26/23 09:00 03/26/23 08:22 L. Acidophilus/Strept/La P-Aram 1 Cap Capsule PO 03/25/24 08:59 1 cap DAILY JOANNA Administration Moneta Carbonate 150 mg 03/26/23 09:00 03/26/23 08:21 Moneta Carbonate 300 Mg Tablet PO 03/25/24 08:59 150 mg BID JOANNA Administration Loratadine 10 mg 03/26/23 09:00 03/26/23 08:21 Loratadine 10 Mg Tablet PO 03/25/24 08:59 10 mg DAILY JOANNA Administration Magnesium Hydroxide 30 ml 03/26/23 01:03 Magnesium Hydroxide Susp 30 Ml Udc PO 03/25/24 01:02 Q6H PRN Constipation Meloxicam 15 mg 03/26/23 22:00 Meloxicam *Nf* 7.5 Mg Tablet PO 03/25/24 21:59 [facility] Olanzapine 5 mg 03/26/23 01:03 Olanzapine 5 Mg Tablet PO 03/25/24 01:02 Q6H PRN Agitation Olanzapine 5 mg 03/26/23 01:03 Olanzapine 10 Mg Vial *Nf* IM 03/25/24 01:02 Q6H PRN Agitation Ondansetron HCl 4 mg 03/26/23 08:45 03/26/23 16:25 Ondansetron Odt 4 Mg Tab.Rapdis PO 03/25/24 08:44 4 mg Q8HR PRN Administration Nausea And Vomiting Polyethylene Glycol 17 gm 03/26/23 06:15 Polyethylene Glycol 3350 17 Gm Powd.Pack PO 03/25/24 05:48 DAILY PRN Constipation Quetiapine Fumarate 400 mg 03/26/23 22:00 Quetiapine Fumarate Er.24hr 200 Mg Tab.Er.24h PO 03/25/24 21:59 [facility] Sterile Water 2.1 ml 03/26/23 01:03 Water For Injection,Sterile 10 Ml Vial INJECTION 03/25/24 01:02 PRN PRN To dilute OLANZapine (ZyPREXA) Topiramate 25 mg 03/26/23 22:00 Topiramate 25 Mg Tablet PO 03/25/24 21[facility] Physical Exam Vital Signs: Temp Pulse Resp BP Pulse Ox O2 Del Method 97.5 F L 103 H 17 137/78 97 Room Air 03/26/23 15:30 03/26/23 15:30 03/26/23 15:30 03/26/23 15:30 03/26/23 15:30 03/26/23 15:30 Narrative: CONST- alert, in bed, no acute distress HEAD- normocephalic and atraumatic EENT- sclera nonicteric and conjunctiva nonerythemic, moist oral mucosa, pharynxclear NECK- supple, no cervical lymphadenopathy CARDIAC- RRR no abnormal heart tones PULM- diminished without wheeze or rhonchi, RA, no accessory muscle use or coughnoted ABD-hypoactive bowel sounds, generalized tenderness, no CVA tenderness, soft, flat EXTREM- no edema BLE, calves nontender SKIN- W/D, good turgor MS- MAEx4 spontaneously with equal strength, back pain chronic and reported withspinal palpation lumbar spine NEURO- A&Ox3, speech clear and tongue midline, equal facial symmetry PSYCH-mood and behavior appropriate, flat affect Results Lab Results Labs: Laboratory Results - last 72 hr 03/26/23 07:30: Moneta 0.20 L 03/26/23 07:30: Triglycerides 86, Cholesterol 165, LDL Cholesterol, Calc 95, VLDL Cholesterol 17, HDL Cholesterol 53, Cholesterol/HDL Ratio 3.1, 25-OH Vitamin D Total 34.5, Free T4 0.74, TSH 3rd Generation 0.42 L Assessment & Plan Assessment/Plan (1) Nausea & vomiting: (2) Flank pain: (3) Abdominal pain: (4) MYESHA (acute kidney injury): Plan Nausea vomiting Abdominal pain generalized, left flank pain MYESHA, dehydration -IV fluid boluses ordered x2 -Check stat labs and repeat labs in a.m. CBC CMP lipase urinalysis -Patient recent CT abdomen pelvis 03/14 reviewed showing no obstructive uropathy, punctate calcifications bilateral kidneys cortical in location -Symptom management for nausea?ondansetron scheduled x2 days -IV pantoprazole -Clear liquids advance as tolerated -check CT abd/pelvis r/o stones that may have moved since prior CT Chronic condition 1. COPD?asthma?stable respiratory status continue as needed albuterol, budesonide/formoterol, nasal fluticasone, loratadine 2. B12 deficiency?cyanocobalamin 3. GERD, Hx PUD?hold famotidine currently on pantoprazole 4. Arthritis right shoulder, chronic back pain?hold meloxicam with GI symptoms 5. Parkinson's?amantadine Schizoaffective disorder -Further POC per inpatient psychiatric team for psychoactive medication management/adjustment and psychotherapy I personally saw this patient on the day of the encounter, reviewed the history,performed the courtney elements of the exam, formulated the plan of care and confirmed the Nurse Practitioner's assessment and plan. - Jose Huang DO Documented By: Mariana Pryor APRN 03/04 Signed By: <Electronically signed by RODNEY Pryor> 10/1828 <Electronically signed by Jose Huang DO> 03/26/232128 [facility] Work Phone: 1(617) 773-415610-24-2023 Consult note Author Mariana Pryor [facility] March 26, 2023 5:27pm Note Date/Time March 26, 2023 3 :48pm [facility] [address] [place] [address] Hospitalist Consult Note Signed with Addenda Patient: Gail Almeida MR#: [id number] : 1955 Acct:[id number] Age/Sex: 67 / F Adm Date: 3 Loc: Room: [address] [place] [address] Type: ADM IN Attending Dr: Joe Davis MD Copies to: NON STAFF MD Mariana Vides APRN~ ADDENDUM1 disregard signed without completion Addendum Documented By: RODNEY Pryor 03/26/231725 Addendum Signed By: <Electronically signed by RODNEY Pryor> 03/26/23 1726 HPI DATE OF CONSULTATION: 03/26/23 REQUESTING PROVIDER: Joe Davis [facility] Medical History (Updated 03/26/23 @ 01:23 by Dalia Julien RN) Anxiety Arthritis Asthma Back pain Bipolar disorder Chronic bronchitis COPD (chronic obstructive pulmonary disease) Depression Diabetes mellitus type 2, controlled, without complications GERD (gastroesophageal reflux disease) Heart attack Localized swelling, mass and lump, neck Migraine Parkinson disease RBBB Schizoaffective disorder Sinus drainage chronic Smoker Thyroid lesion Vision loss Surgical History History of hysterectomy History of tubal ligation Hx of breast lump removal rt-benign Family History Father H/O heart artery stent CAD (coronary artery disease) Mother Recurrent strokes Brother CHF (congestive heart failure) Muscular dystrophy Social History Smoking Status: Current every day smoker Tobacco Type: cigarettes Substance Use Type: None Social History Comments: alone in apartment Meds Medications and Allergies Allergies aspirin Allergy (Verified 03/12/23 01:08) shock Barbiturates Allergy (Verified 03/12/23 01:08) Unknown Reaction codeine Allergy (Verified 03/12/23 01:08) Unknown Reaction fluoxetine Allergy (Verified 03/12/23 01:18) Unknown Reaction ibuprofen Allergy (Verified 03/12/23 01:18) Unknown Reaction meperidine Allergy (Verified 09/13/22 06:58) Unknown Reaction Penicillins Allergy (Verified 03/12/23 01:08) Swelling of Lip/Tongue/Throat Sulfa (Sulfonamide Antibiotics) Allergy (Verified 03/12/23 01:08) nausea; strange odor sulfamethoxazole [From Bactrim] Allergy (Verified 03/12/23 01:08) Unknown Reaction trimethoprim [From Bactrim] Allergy (Verified 03/12/23 01:08) Unknown Reaction Home Medications amantadine HCl 100 mg tablet 100 mg PO BID 09/11/22 [History Confirmed 03/26/23] benztropine 0.5 mg tablet 0.5 mg PO BID 09/11/22 [History Confirmed 03/26/23] clonidine HCl 0.1 mg tablet 0.1 mg PO DAILY 09/11/22 [History Confirmed 03/26/23] famotidine 20 mg tablet 20 mg PO BID 09/11/22 [History Confirmed 03/26/23] lithium carbonate 150 mg capsule 150 mg PO BID 09/11/22 [History Confirmed 03/26/23] loratadine 10 mg tablet 10 mg PO DAILY 09/11/22 [History Confirmed 03/26/23] meloxicam 15 mg tablet 15 mg PO DAILY 09/11/22 [History Confirmed 03/26/23] risperidone microspheres 25 mg/2 mL intramuscular susp,ext release (Risperdal Consta) 25 mg IM Q2W 09/11/22 [History Confirmed 03/26/23] topiramate 25 mg tablet 25 mg PO QHS 09/11/22 [History Confirmed 03/26/23] benzonatate 100 mg capsule 100 mg PO DAILY 09/13/22 [History Confirmed 03/26/23] docusate sodium 100 mg capsule 100 mg PO HS 03/12/23 [History Confirmed 03/26/23] fluticasone 250 mcg-salmeterol 50 mcg/dose blistr powdr for inhalation (Advair Diskus) 1 inh inhalation BID 03/12/23 [History Confirmed 03/26/23] polyethylene glycol 3350 17 gram/dose oral powder 17 g PO DAILY PRN Euzudojtthdd16/10/23 [History Confirmed 03/26/23] quetiapine 400 mg tablet,extended release 24 hr 400 mg PO QHS depression 30 days#30 tabs 03/15/23 [Rx Confirmed 03/26/23] Lactobacillus acidophilus (Acidophilus capsule) 1 cap PO DAILY 03/26/23 [History Confirmed 03/26/23] albuterol sulfate 90 mcg/actuation aerosol inhaler 2 puff inhalation Q6H PRN Shortness Of Breath Or Wheezing 03/26/23 [History Confirmed 03/26/23] cyanocobalamin (vitamin B-12) 500 mcg tablet (Vitamin B-12) 500 mcg PO DAILY 03/26/23 [History Confirmed 03/26/23] dextromethorphan-guaifenesin 30 mg-600 mg tablet extended [id number] hr (Mucus DM) 1 tab PO Q12H PRN Congestion 03/26/23 [History Confirmed 03/26/23] fluticasone propionate 50 mcg/actuation nasal spray,suspension 1 spray intranasal BID 03/26/23 [History Confirmed 03/26/23] folic acid 800 mcg tablet 800 mcg PO DAILY 03/26/23 [History Confirmed 03/26/23] hydrocodone 5 mg-acetaminophen 325 mg tablet 0.5 tab PO Q6H PRN Pain 03/26/23 [History Confirmed 03/26/23] hydrocodone 5 mg-acetaminophen 325 mg tablet 1 tab PO Q6H PRN Pain 03/26/23 [History Confirmed 03/26/23] mometasone-formoterol HFA 200 mcg-5 mcg/actuation aerosol inhaler (Dulera) 2 puff inhalation BID 03/26/23 [History Confirmed 03/26/23] Active Medications: Active Medications Generic Name Dose Route Start Last Admin Trade Name Freq PRN Reason Stop Dose Admin Acetaminophen 500 mg 03/26/23 01:03 Acetaminophen 500 Mg Tablet PO 03/25/24 01:02 Q6H PRN Fever or Pain Al Hydrox/Mg Hydrox/Simethicone 30 ml 03/26/23 01:03 Mag Hydrox/Al Hydrox/Simeth 30 Ml Udc PO 03/25/24 01:02 Q6H PRN Indigestion Albuterol 2 puff 03/26/23 05:49 Albuterol Hfa 60 Puff/8 Gram Inhaler INHALATION 03/25/24 05:48 Q6H PRN Shortness Of Breath Or Wheezing Amantadine HCl 100 mg 03/26/23 09:00 03/26/23 08:21 Amantadine 100 Mg Capsule PO 03/25/24 08:59 100 mg BID JOANNA Administration Benzonatate 100 mg 03/26/23 09:00 03/26/23 08:21 Benzonatate 100 Mg Capsule PO 03/25/24 08:59 100 mg DAILY JOANNA Administration Benztropine Mesylate 0.5 mg 03/26/23 09:00 03/26/23 08:22 Benztropine 0.5 Mg Tablet PO 03/25/24 08:59 0.5 mg BID JOANNA Administration Budesonide/Formoterol Fumarate 2 puff 03/26/23 09:00 03/26/23 09:09 Budesonide/Formoterol 160-4.5 Mcg 60 Puff/6 Gm Hfa.Aer.Ad INHALATION 03/25/24 08:59 Not Given BID JOANNA Clonidine HCl 0.1 mg 03/26/23 09:00 03/26/23 08:21 Clonidine 0.1 Mg Tablet PO 03/25/24 08:59 0.1 mg DAILY JOANNA Administration Cyanocobalamin 500 mcg 03/26/23 09:00 03/26/23 08:22 Cyanocobalamin 500 Mcg Tablet PO 03/25/24 08:59 500 mcg DAILY JOANNA Administration Docusate Sodium 100 mg 03/26/23 22:00 Docusate 100 Mg Capsule PO 03/25/24 21:59 HS JOANNA Famotidine 20 mg 03/26/23 09:00 03/26/23 08:22 Famotidine 20 Mg Tablet PO 03/25/24 08:59 20 mg BID JOANNA Administration Fluticasone Propionate 1 spray 03/26/23 09:00 03/26/23 08:22 Fluticasone Propionate [place] 120 [place]/16 Gm Bottle INTRANASAL 03/25/24 08:59 1 spray BID JOANNA Administration Folic Acid 1 mg 03/26/23 09:00 03/26/23 08:21 Folic Acid 1 Mg Tablet PO 10/23/24 08:59 1 mg DAILY JOANNA Administration Guaifenesin/Dextromethorphan 1 tab 03/26/23 05:49 Guaif/Dextromethorphan 600-30mg Tab.Er.12h PO 03/25/24 05:48 Q12H PRN Congestion Hydroxyzine Pamoate 50 mg 03/26/23 01:03 Hydroxyzine Pamoate 50 Mg Capsule PO 03/25/24 01:02 Q6H PRN Anxiety Lact Acid/Bifidobact/Lact [place]/Streptoc Th 1 cap 03/26/23 09:00 03/26/23 08:22 L. Acidophilus/Strept/La P-Aram 1 Cap Capsule PO 03/25/24 08:59 1 cap DAILY JOANNA Administration Moneta Carbonate 150 mg 03/26/23 09:00 03/26/23 08:21 Moneta Carbonate 300 Mg Tablet PO 03/25/24 08:59 150 mg BID JOANNA Administration Loratadine 10 mg 03/26/23 09:00 03/26/23 08:21 Loratadine 10 Mg Tablet PO 03/25/24 08:59 10 mg DAILY JOANNA Administration Magnesium Hydroxide 30 ml 03/26/23 01:03 Magnesium Hydroxide Susp 30 Ml Udc PO 03/25/24 01:02 Q6H PRN Constipation Meloxicam 15 mg 03/26/23 22:00 Meloxicam *Nf* 7.5 Mg Tablet PO 03/25/24 21:59 HS JOANNA Olanzapine 5 mg 03/26/23 01:03 Olanzapine 5 Mg Tablet PO 03/25/24 01:02 Q6H PRN Agitation Olanzapine 5 mg 03/26/23 01:03 Olanzapine 10 Mg Vial *Nf* IM 03/25/24 01:02 Q6H PRN Agitation Ondansetron HCl 4 mg 03/26/23 08:45 03/26/23 08:50 Ondansetron Odt 4 Mg Tab.Rapdis PO 03/25/24 08:44 4 mg Q8HR PRN Administration Nausea And Vomiting Polyethylene Glycol 17 gm 03/26/23 06:15 Polyethylene Glycol 3350 17 Gm Powd.Pack PO 03/25/24 05:48 DAILY PRN Constipation Quetiapine Fumarate 400 mg 03/26/23 22:00 Quetiapine Fumarate Er.24hr 200 Mg Tab.Er.24h PO 03/25/24 21:59 QHS JOANNA Sterile Water 2.1 ml 03/26/23 01:03 Water For Injection,Sterile 10 Ml Vial INJECTION 03/25/24 01:02 PRN PRN To dilute OLANZapine (ZyPREXA) Topiramate 25 mg 03/26/23 22:00 Topiramate 25 Mg Tablet PO 03/25/24 21:59 [facility] Exam Physical Exam Vital Signs: Temp Pulse Resp BP Pulse Ox O2 Del Method 97.5 F L 103 H 17 137/78 97 Room Air 03/26/23 15:30 03/26/23 15:30 03/26/23 15:30 03/26/23 15:30 03/26/23 15:30 03/26/23 15:30 Results Lab Results Labs: Laboratory Results - last 72 hr 03/26/23 07:30: Moneta 0.20 L 03/26/23 07:30: Triglycerides 86, Cholesterol 165, LDL Cholesterol, Calc 95, VLDL Cholesterol 17, HDL Cholesterol 53, Cholesterol/HDL Ratio 3.1, 25-OH Vitamin D Total 34.5, Free T4 0.74, TSH 3rd Generation 0.42 L Documented By: Mariana Pryor APRN 03/04 09/23 1548 Signed By: <Electronically signed by RODNEY Pryor> 03/26/[address] [facility] Work Phone: [phone] 530-812910-19-2023 Instructions Includes: Instructions for all patient encounters Instructions to patient Intervention and counseling on cessation of tobacco use, 3-10 minutes Discussed medication and nicotine replacement for tobacco cessation Last Documented On 3 8:54AM ; [facility] Intervention and counseling on cessation of tobacco use, 3-10 minutes Discussed medication and nicotine replacement for tobacco cessation Last Documented On 2 1:56PM ; [facility] Intervention and counseling on cessation of tobacco use, 3-10 minutes Last Documented On 0 2:07PM ; [facility] Return to the clinic if cond ition worsens or new symptoms arise Last Documented On 9 1:59PM ; [facility] Intervention and counseling on cessation of tobacco use, 3-10 minutes Last Documented On 9 10:39AM ; [facility] Education and Decision Aids were provided during visit for: Discussed nutritional needs teach healthy choices including fruits and vegetables Last Documented On 3 9:37AM ; [facility] Patient education about a pr oper diet Last Documented On 3 9:37AM ; [facility] Discussed concerns about exe rcise : promote physical activity Last Documented On 3 9:37AM ; [facility] Not requesting contraception Last Documented On 3 9:37AM ; [facility] Discussed nutritional needs teach healthy choices including fruits and vegetables Last Documented On 3 9:20AM ; [facility] Patient education about a pr oper diet Last Documented On 3 9:20AM ; [facility] Discussed concerns about exe rcise : promote physical activity Last Documented On 3 9:20AM ; [facility] Discussed nutritional needs teach healthy choices including fruits and vegetables Last Documented On 3 2:02PM ; [facility] Patient education about a pr oper diet Last Documented On 3 2:02PM ; [facility] Discussed concerns about exe rcise : promote physical activity Last Documented On 3 2:02PM ; [facility] Discussed nutritional needs teach healthy choices including fruits and vegetables Last Documented On 3 8:32AM ; [facility] Patient education about a pr oper diet Last Documented On 3 8:32AM ; [facility] Discussed concerns about exe rcise : promote physical activity Last Documented On 3 8:32AM ; [facility] Discussed nutritional needs teach healthy choices including fruits and vegetables Last Documented On 3 11:28AM ; [facility] Patient education about a pr oper diet Last Documented On 3 11:28AM ; [facility] Discussed concerns about exe rcise : promote physical activity Last Documented On 3 11:28AM ; [facility] Discussed nutritional needs teach healthy choices including fruits and vegetables Last Documented On 2 2:01PM ; [facility] Patient education about a pr oper diet Last Documented On 2 2:01PM ; [facility] Discussed concerns about exe rcise : promote physical activity Last Documented On 2 2:01PM ; [facility] Discussed nutritional needs teach healthy choices including fruits and vegetables Last Documented On 2 2:11PM ; [facility] Patient education about a pr oper diet Last Documented On 2 2:11PM ; [facility] Discussed concerns about exe rcise : promote physical activity Last Documented On 2 2:11PM ; [facility] Discussed current self-care methods/coping skills. ~Validated and normalized pt's feelings while assisting patient process recent events. ~Discussed ongoing counseling. ~Discussed lifestyle changes to address chronic illness. ~Supported patient's personal health goals ~wordfinds. walk, read, eat, enjoy my best friesnd Last Documented On 2 5:54PM ; [facility] Discussed nutritional needs teach healthy choices including fruits and vegetables Last Documented On 2 10:04AM ; [facility] Patient education about a pr oper diet Last Documented On 2 10:04AM ; [facility] Discussed concerns about exe rcise : promote physical activity Last Documented On 2 10:04AM ; [facility] Discussed nutritional needs teach healthy choices including fruits and vegetables Last Documented On 2 1:25PM ; [facility] Patient education about a pr oper diet Last Documented On 2 1:25PM ; [facility] Discussed concerns about exe rcise : promote physical activity Last Documented On 2 1:25PM ; [facility] Discussed nutritional needs teach healthy choices including fruits and vegetables Last Documented On 1 10:08AM ; [facility] Patient education about a pr oper diet Last Documented On 1 10:08AM ; [facility] Discussed concerns about exe rcise : promote physical activity Last Documented On 1 10:08AM ; [facility] Discussed nutritional needs teach healthy choices including fruits and vegetables Last Documented On 1 1:12PM ; [facility] Patient education about a pr oper diet Last Documented On 1 1:12PM ; [facility] Patient education about a pr oper diet Last Documented On 1 1:30PM ; [facility] Patient education about meal planning Last Documented On 1 1:30PM ; [facility] Education about changing eat ing habits Last Documented On 1 1:30PM ; [facility] Patient education about high fiber diet Last Documented On 1 1:30PM ; [facility] Patient education about low fat diet Last Documented On 1 1:30PM ; [facility] Patient education about low cholesterol diet Last Documented On 1 1:30PM ; [facility] Patient education about low carbohydrate diet Last Documented On 1 1:30PM ; [facility] Patient education about high protein diet Last Documented On 1 1:30PM ; [facility] Discussed concerns about exe rcise : promote physical activity Last Documented On 1 1:12PM ; [facility] Education/counseling conduct ed by pharmacist Last Documented On 0 1:39PM ; [facility] Vaccination counseling Last Documented On 0 1:39PM ; [facility] Discussed concerns about exe rcise : promote physical activity Last Documented On 0 2:16PM ; [facility] Patient goals decrease short ness of breath episodes Last Documented On 0 2:11PM ; [facility] Patient states that she uses her rescue inhaler maybe 2 times a month. States that she is in today because other people told her that she has shortness of breath. ~ ~States that she uses her dulera 1 puff by mouth twice a day (uses spacer with inhaler). ~ ~Spirometry was done today with some difficulty during test. Spirometry showed mild restriction. ~ ~Counseled patient on the importance of adherence to inhalers and use of spacer. Patient states that she hears a whistle from time to time when using spacer. Counseled patient that spacer noise can be due to breathing in too fast. ~ ~Possible Raynauds Syndrome due to middle left finger tip turning blue. States this happens every winter. Counseled patient on making sure she wears gloves and to keep her fingers warm. ~ ~Blood pressure well controlled today at 116/70. Previous elevated blood pressures have been due to patient smoking prior to appointment per patient. Counseled on the importance of quitting and for her to reach out to us when she is ready to quit. ~ ~States recently received flu and pneumonia vaccine recently Last Documented On 0 2:24PM ; [facility] Patient education about a pr oper diet Last Documented On 0 2:54PM ; [facility] Patient education about meal planning Last Documented On 0 2:54PM ; [facility] Education about changing eat ing habits Last Documented On 0 2:54PM ; [facility] Patient education about high fiber diet Last Documented On 0 2:54PM ; [facility] Patient education about low fat diet Last Documented On 0 2:54PM ; [facility] Patient education about low cholesterol diet Last Documented On 0 2:54PM ; [facility] Patient education about low carbohydrate diet Last Documented On 0 2:54PM ; [facility] Patient education about high protein diet Last Documented On 0 2:54PM ; [facility] Discussed nutritional needs teach healthy choices including fruits and vegetables Last Documented On 0 11:11AM ; [facility] Patient education about a pr oper diet Last Documented On 0 11:11AM ; [facility] Patient education about a pr oper diet Last Documented On 0 11:28AM ; [facility] Patient education about meal planning Last Documented On 0 11:28AM ; [facility] Education about changing eat ing habits Last Documented On 0 11:28AM ; [facility] Patient education about high fiber diet Last Documented On 0 11:28AM ; [facility] Patient education about low fat diet Last Documented On 0 11:28AM ; [facility] Patient education about low cholesterol diet Last Documented On 0 11:28AM ; [facility] Patient education about low carbohydrate diet Last Documented On 0 11:28AM ; [facility] Patient education about high protein diet Last Documented On 0 11:28AM ; [facility] Discussed concerns about exe rcise : promote physical activity Last Documented On 0 11:11AM ; [facility] Education/counseling conduct ed by pharmacist Last Documented On 0 1:41PM ; [facility] Patient states that she lonnie gonzalez has issues using inhaler. Patient brought in inhaler to appt. Rarely uses her rescue inhaler, may use it every 3-4 months ~ ~Performed technique where the spacer whistled. Patient was shown video on proper inhalation technique and patient repeated steps. Patient is to not blow in the spacer but to breath in medication from the spacer. ~ ~Had questions on how to use nasal spray and eye ointment. Patient was counseled on how to use. ~ ~Interested in switching omeprazole to famotidine or rantidine. Please follow up at next scheduled visit. ~ ~She has cut down her smoking to 3 cigarettes a day and will be cutting down smoking on her own Last Documented On 0 2:08PM ; [facility] Education/counseling conduct ed by pharmacist Last Documented On 9 1:12PM ; [facility] Patient states that she lonnie gonzalez has issues with her inhaler with the spacer. Patient did not bring in inhaler or spacer. Patient was told to bring in inhalers at next scheduled visit for pharmacist to assess inhalation technique. Patient is agreeable Last Documented On 9 1:13PM ; [facility] Patient goals Start using ch deon to help with inhaling dulera Last Documented On 9 2:40PM ; [facility] Patient states that she is g etting frustrated with inhaler use and nasal spray. ~ ~Patient performed correct technique in office but she is still frustrated. Provided patient with education sheet on how to use inhalers. Patient is interested in using spacer to help with dulera administration. ~ ~Cut down smoking from 4-6 cigarettes to 2 cigarettes cold turkey. ~ ~Recommended flu and pneumonia vaccine but denied at this time. Counseled on the importance of vaccines Last Documented On 9 2:51PM ; [facility] Discussed nutritional needs teach healthy choices including fruits and vegetables Last Documented On 9 9:29AM ; [facility] Patient education about a pr oper diet Last Documented On 9 9:29AM ; [facility] Discussed concerns about exe rcise : promote physical activity Last Documented On 9 9:29AM ; [facility] Work Phone: 1(198) 719-919310-13-2023 Hospital Discharge instructions Additional Instructions Important Contact Information You can call [facility] at [phone] any time day or night if you have emergent questions or question regarding discharge instructions. If at any time you are feeling an increase in your psychiatric symptoms, call your physician or behavioral healthcare provider. If any time you have thoughts of harming yourself or others contact one of the following: Call 9-8-8 (available 24/12) Crisis Text Line (available 24/12) text 4HOPE to [phone] [facility] Hope Line (available 8 a.m. Midnight) call [phone] ([phone]) Regular Diet No Activity Restrictions Risperdal Consta Long Acting Injection Due 03/21/23[facility] Work Phone: 1(966) 371-228010-12-2023 Consult note Author Maddy Moss [facility] March 14, 2023 3:16pm Note Date/Time March 14, 2023 3 :14pm [facility] [address] [place] [address] Cardiology Consult Note Signed Patient: Gail Almeida MR#: [id number] : 1955 Acct:[id number] Age/Sex: 67 / F Adm Date: 3 Loc: Room: [address] [place] [address] Type: ADM IN Attending Dr: Joe Davis MD Copies to: NON STAFF MD Maddy Vides MD~ Cardiology HPI History of Present Illness Consult Date: 03/14/23 Reason for Consult: Prolonged QTc interval HPI: Ms. Almeida is a 67 year old female with past medical history significant for bipolar disorder who presented with worsening delusions. She was had been on Seroquel had stopped taking it due to a miscommunication from a provider on admission she was restarted on Seroquel 300 mg p.o. nightly and continued on risperidone. EKG on admission was significant for QTc of 483ms. Cardiology wasconsulted for prolonged QT interval. Patient denies having abnormal heart rhythm, lightheadedness, palpitations or syncope. Denies any cardiac history in the past. EKG in the ED showed normal sinus rhythm HR of 81 bpm. Right bundle branch block with QRS interval of 146 ms and left anterior fascicular block. Review oftelemetry strip from September 2022 shows that RBBB was present. Review of Systems Review of Systems All other systems reviewed & are negative unless noted below or in HPI [facility] Medical History (Updated 03/14/23 @ 15:12 by Maddy Moss MD) Anxiety Arthritis Asthma Back pain Bipolar disorder Chronic bronchitis COPD (chronic obstructive pulmonary disease) Depression Diabetes mellitus type 2, controlled, without complications GERD (gastroesophageal reflux disease) Heart attack Migraine Parkinson disease RBBB Schizoaffective disorder Sinus drainage chronic Smoker Thyroid lesion Surgical History History of hysterectomy History of tubal ligation Hx of breast lump removal rt-benign Family History Father H/O heart artery stent CAD (coronary artery disease) Mother Recurrent strokes Brother CHF (congestive heart failure) Muscular dystrophy Social History Smoking Status: Current every day smoker Tobacco Type: cigarettes Substance Use Type: None Social History Comments: alone in apartment Meds Medications and Allergies Allergies aspirin Allergy (Verified 03/12/23 01:08) shock Barbiturates Allergy (Verified 03/12/23 01:08) Unknown Reaction codeine Allergy (Verified 03/12/23 01:08) Unknown Reaction fluoxetine Allergy (Verified 03/12/23 01:18) Unknown Reaction ibuprofen Allergy (Verified 03/12/23 01:18) Unknown Reaction meperidine Allergy (Verified 09/13/22 06:58) Unknown Reaction Penicillins Allergy (Verified 03/12/23 01:08) Swelling of Lip/Tongue/Throat Sulfa (Sulfonamide Antibiotics) Allergy (Verified 03/12/23 01:08) nausea; strange odor sulfamethoxazole [From Bactrim] Allergy (Verified 03/12/23 01:08) Unknown Reaction trimethoprim [From Bactrim] Allergy (Verified 03/12/23 01:08) Unknown Reaction Home Medications amantadine HCl 100 mg tablet 100 mg PO BID 09/11/22 [History Confirmed 03/12/23] benztropine 0.5 mg tablet 0.5 mg PO BID 09/11/22 [History Confirmed 03/12/23] clonidine HCl 0.1 mg tablet 0.1 mg PO DAILY 09/11/22 [History Confirmed 03/12/23] famotidine 20 mg tablet 20 mg PO BID 09/11/22 [History Confirmed 03/12/23] lithium carbonate 150 mg capsule 150 mg PO BID 09/11/22 [History Confirmed 03/12/23] loratadine 10 mg tablet 10 mg PO DAILY 09/11/22 [History Confirmed 03/12/23] meloxicam 15 mg tablet 15 mg PO DAILY 09/11/22 [History Confirmed 03/12/23] quetiapine 300 mg tablet,extended release 24 hr 300 mg PO QHS depression 09/11/22 [History Confirmed 03/12/23] quetiapine 400 mg tablet,extended release 24 hr 400 mg PO QHS depression 09/11/22 [History Confirmed 03/12/23] risperidone microspheres 25 mg/2 mL intramuscular susp,ext release (Risperdal Consta) 25 mg IM Q2W 09/11/22 [History Confirmed 03/12/23] topiramate 25 mg tablet 25 mg PO QHS 09/11/22 [History Confirmed 03/12/23] benzonatate 100 mg capsule 100 mg PO DAILY 09/13/22 [History Confirmed 03/12/23] docusate sodium 100 mg capsule 100 mg PO DAILY 03/12/23 [History Confirmed 03/12/23] fluticasone 250 mcg-salmeterol 50 mcg/dose blistr powdr for inhalation (Wixela Inhub) 1 inh inhalation BID 03/12/23 [History Confirmed 03/12/23] polyethylene glycol 3350 17 gram/dose oral powder 17 g PO DAILY PRN [id number]/10/23 [History Confirmed 03/12/23] Exam Physical Exam Vital Signs: Temp Pulse Resp BP Pulse Ox O2 Del Method 98.3 F 77 16 117/60 99 Room Air 03/14/23 07:30 03/14/23 07:30 03/14/23 07:30 03/14/23 07:30 03/14/23 07:30 03/14/23 09:00 Const General: no acute distress Orientation: alert, awake and oriented x3 HEENT Head: normocephalic and atraumatic Mouth: moist mucous membranes Teeth and gingiva: dentition normal Eyes General: appearance normal, both eyes and all related structures EOM: EOM intact bilaterally Neck Neck: other (No JVD) Resp Effort & Inspection: normal respiratory effort, able to speak in complete sentences and not tachypneic Auscultation: clear to auscultation bilaterally, no rales, no rhonchi and no wheezes Cardio Palpation: normal PMI Rate: regular rate Rhythm: regular rhythm Heart Sounds: S1 normal, S2 normal, no gallops, no murmurs and no rubs Pulses: radial pulses present, posterior tibial pulses present and dorsalis pedis present GI Inspection: normal to inspection and non-distended Palpation: soft and nontender Auscultation: normal bowel sounds Musc Other: Normal range of motion. No joint swelling Skin General: no rashes or lesions noted Neuro General: patient alert, patient awake, patient oriented x3, moves all extremities and no focal motor deficits Extrem General: normal to inspection, full ROM, no pedal edema, no clubbing and no cyanosis Psych Appearance: grossly normal Mood: congruent mood Affect: normal affect Speech and Movement: speech and movement normal Results Labs 03/14/23 05:33 03/14/23 05:33 Lab results: Cardiac Enzymes 03/14/23 Range/Units 05:33 AST 18 (13-39) U/L CBC 03/14/23 Range/Units 05:33 RBC 3.93 (3.60-5.00) X10E6/uL Hgb 12.5 (11.8-15.4) g/dL Hct 37.4 (34.0-46.4) % Plt Count 212 (150-450) x10E3/uL Neut # (Auto) 2.4 (1.8-7.7) x10E3/uL Lymph # (Auto) 1.9 (1.00-4.8) x10E3/uL [place] # (Auto) 0.6 (0.0-0.8) x10E3/uL Eos # (Auto) 0.2 (0.0-0.45) x10E3/uL Baso # (Auto) 0.1 (0.0-0.2) x10E3/uL Comprehensive Metabolic Panel 03/14/23 Range/Units 05:33 Sodium 141 (136-145) mmol/L Potassium 4.2 (3.5-5.1) mmol/L Chloride 116 H (98-107) mmol/L Carbon Dioxide 20.1 L (21.0-31.0) mmol/L BUN 30 H (7-25) mg/dL Creatinine 1.01 (0.60-1.20) mg/dL Glucose 101 H (70-100) mg/dL Calcium 9.3 (8.6-10.3) mg/dL AST 18 (13-39) U/L ALT 28 (7-52) U/L Alkaline Phosphatase 86 (34-104) U/L Total Protein 5.9 L (6.4-8.9) gm/dL Albumin 3.9 (3.5-5.7) gm/dL Intake and Output 03/13/23 03/14/23 03/14/23 23:59 07:59 15:59 Other: Date of Last Bowel Movement 03/13/23 A&P - Cardiology (1) Prolonged Q-T interval on ECG: Code(s): R94.31 - Abnormal electrocardiogram [ECG] [EKG] (2) Schizoaffective disorder: Code(s): F25.9 - Schizoaffective disorder, unspecified Plan Ms. Almeida is a 67 year old female with past medical history significant for bipolar disorder who presented with worsening delusions. She was had been on Seroquel had stopped taking it due to a miscommunication from a provider on admission she was restarted on Seroquel 300 mg p.o. nightly and continued on risperidone. EKG on admission was significant for QTc of 483ms. Cardiology was consulted for prolonged QT interval. Patient denies having abnormal heart rhythm, lightheadedness, palpitations or syncope. Denies any cardiac history in the past. EKG in the ED showed normal sinus rhythm HR of 81 bpm. Right bundle branch block with QRS interval of 146 ms and left anterior fascicular block. Review of telemetry strip from September 2022 shows that RBBB was present. Concern for Prolonged QTc interval: - QTc appears prolonged in the setting of right bundle branch block with a QRS duration of 146ms. Using Bazett QTc formula and incorporating wide QRS, the corrected QTc value is 457ms. -Patient therefore does not have prolonged QTc. May continue patient's Seroquel and Risperdal. -Patient has bifascicular block that does not require any intervention at this time. -No further cardiac work-up recommended. -Cardiology will sign off. Please call with questions Documented By: Maddy Moss MD 03/14/231509 Signed By: <Electronically signed by Maddy Moss MD> 03/14/23 1513 [facility] Work Phone: 1([phone]) 845-690410-12-2023 Progress note Author Joe rodriguez [facility] March 14, 2023 6:33am Note Date/Time March 14, 2023 6 :33am [facility] [address] [place] [address] Psychiatry Progress Note Signed Patient: Gail Almeida MR#: [id number] : 1955 Acct:[id number] Age/Sex: 67 / F Adm Date: 3 Loc: Room: [address] [place] [address] Type : ADM IN Attending Dr: Joe Davis MD Copies to: ~ Date of Service: 03/14/2023 Subjective Subjective Narrative: Ms. Almeida reports she is feeling better. Depression and anxiety are stabilizing gradually on the current medication regimen. Anxiety is mild in intensity with attempted utilization of coping skills. She denies SI/HI and verbalized the intent to notify staff if she has such thoughts. Her affect is brighter on exam. She continues to be compliant with prescribed medications and is visible within the unit milieu. She was seen by the hospitalist for potentialUTI. We have agreed to continue the current medications regimen. Risks, benefits, and indications of medications were discussed. She has not history of recent suicide attempts, and she is future oriented, participated in group activities, articulated needs appropriately, and displayedno self-harm behaviors. Imminent risk is low given factors noted above. Further inpatient hospitalization unlikely to mitigate chronic suicide risk, and pt agrees to f/u with outpatient psych care. She was taking Seroquel 700 mg PO HS 2weeks ago and stopped, and is currently on 300 mg PO HS. Will titrate up gradually. Appearance: dressed casually Mental Status: mental status grossly normal Mood: Euthymic mood Affect: Normal affect Speech and Movement: speech and movement normal and speech clear Attitude: cooperative Thought Process: normal Thought Content: Denied hallucinations, no homicidality and no suicidality Insight: fair Judgment: fair Impulse control: fair Exam Physical Exam Vital Signs: Temp Pulse Resp BP Pulse Ox O2 Del Method 97.4 F L 68 16 133/83 99 Room Air 03/13/23 21:15 03/13/23 21:15 03/13/23 21:15 03/13/23 21:15 03/13/23 21:15 03/13/23 21:15 Assessment/Plan Assessment/Plan (1) Schizoaffective disorder: Code(s): F25.9 - Schizoaffective disorder, unspecified Status: Acute Plan Ms. Almeida reports she is feeling much better and is not demonstrating signs of shelby. Anticipate discharge tomorrow Hospitalist on board Increase Seroquel to 400 mg p.o. nightly. Encourage group participation and medication compliance. Continue to monitor mental status. Documented By: Joe Davis MD 3 0631 Signed By: <Electronically signed by Joe Davis MD> 03/14/23 0633 [facility] Work Phone: 1([phone]) 436-145410-11-2023 Progress note Author Joe rodriguez [facility] March 13, 2023 1:14pm Note Date/Time March 13, 2023 7 :06am [facility] [address] [place], [place] [id number] Psychiatry Progress Note Signed Patient: Gail Almeida MR#: [id number] : 1955 Acct:[id number] Age/Sex: 67 / F Adm Date: 3 Loc: 1S Room: [address] [place] [address] Type : ADM IN Attending Dr: Joe Davis MD Copies to: ~ Date of Service: 03/13/2023 Subjective Subjective Narrative: Ms. Almeida is a 67 year old female with reported history of bipolar disorder whopresents for inpatient admission due to worsening of delusions. She reported racing thoughts and tolerated restarting Seroquel. She is complaining of left sided lower abdominal pain that started two days ago and has been getting worse.She requested seeing the medical doctor. She denied SI/HI. She tells me I have not had a delusional episode since 2009 . She reports not sleeping well last night. Most recent lithium level is 0.5 Patient was personally seen by me on the day of the encounter. I reviewed the history and performed the courtney elements of the assessment. I formulated the planof care and confirmed this with the medical student as noted below Mental status: Grossly normal Appearance: Grossly normal Mood: Agitated by having to repeat self. Restless. Pleasant. Affect: Euthymic Speech and movement: Speech clear and slightly rapid. Normal volume. Movement normal. No flight of ideas, tangential thought process. Attitude: Cooperative Thought process: Goal directed Thought content: Reports delusions. Denies SI, HI, AVH Insight: Poor Judgment: Poor = Exam Physical Exam Vital Signs: Temp Pulse Resp BP Pulse Ox O2 Del Method 98.5 F 78 16 118/77 99 Room Air 03/12/23 19:43 03/12/23 19:43 03/12/23 19:43 03/12/23 19:43 03/12/23 19:43 03/12/23 19:43 Objective Labs Labs: Abnormal Labs 03/12/23 03/12/23 06:00 18:35 25-OH Vitamin D Total 28.1 L Ur Leukocyte Esterase 4+ H Urine WBC 20-49 H Assessment/Plan Assessment/Plan (1) Schizoaffective disorder: Code(s): F25.9 - Schizoaffective disorder, unspecified Status: Acute Plan Ms. Almeida is a 67-year-old female with past medical history of bipolar disorderwho presents today for worsening delusions. She demonstrating signs of shelby. Increase Seroquel to 400 mg p.o. nightly. Encourage group participation and medication compliance. Continue to monitor mental status. Documented By: Joe aDvis MD 3 0704 Signed By: <Electronically signed by Joe Davis MD> 03/13/23 1314 [facility] Work Phone: 1(543) 556-239310-10-2023 History and physical note Author Joe rodriguez [facility] March 12, 2023 11:25am Note Date/Time March 12, 2023 1 0:29am [facility] [address] [place] [address] Psychiatry H&P Signed Patient: Gail Almeida MR#: [id number] : 1955 Acct:[id number] Age/Sex: 67 / F Adm Date: 3 Loc: 1S Room: [address] [place] [address] Type: ADM IN Attending Dr: Joe Davis MD Copies to: NON STAFF Joe Davis MD~ Date of Service: 03/12/2023 HPI History of Present Illness History of present illness: Ms. Almeida is a 67 year old female with reported history of bipolar disorder whopresents for inpatient admission due to worsening of delusions. Reportedly Ms. Almeida was having delusions and talking loudly to herself. She had an appointment with her psychiatrist on 03/11/2023 and was pink slipped due to exhibiting signs of shelby. She was sent to [facility] for medical clearance and then brought to [facility]. The patient stated that her friend told her that her daughter was mangled up and . She stopped her Seroquel 3 weeks ago after taking it for 13 years due to a miscommunication between patient and provider. She thought her provider told her to stop taking the Seroquel. She can complete her ADLs. Patient was personally seen by me on the day of the encounter. I reviewed the history and performed the courtney elements of the assessment. I formulated the planof care and confirmed this with the medical student as noted below At the time of the interview Ms. Almeida presented as slightly agitated. She tells me she has been having disruptive episodes . She was told this by familymembers and does not know what they meant by that. She says her doctor told herthat Seroquel was causing these disruptive episodes, and she stopped taking her Seroquel 3 weeks ago. She repeats to me that a friend told her that her daughter committed suicide and was mangled up . She says this was told to her while she was still on the Seroquel, and she does not believe it is a delusion. She tells me I have not had a delusional episode since 2009 . She reports not sleeping well last night. She denies SI, HI, AVH. Past psych history: Bipolar disorder. Refuses to name other diagnoses and states I'm tired of repeating myself . Past hospitalizations: Hospitalized 8 years ago at [facility] Past suicide attempts: Denies Family psych history: Mother with bipolar disorder. Daughter with bipolar disorder. Previous medications: Seroquel, Risperdal IM, amantadine, Cogentin, lithium Alcohol and drug use: Denies alcohol or illicit drug use. Reports smoking 3 to 4 cigarettes/day. Living: Alone at [facility] Employment: Unemployed. Plans to retire next year. Relationships: Describes her support system as myself . Seldom talks to family. Has friends at the assisted living but does not consider them a supportsystem.. Mental status: Grossly normal Appearance: Grossly normal Mood: Agitated by having to repeat self. Restless. Pleasant. Affect: Euthymic Speech and movement: Speech clear and slightly rapid. Normal volume. Movement normal. No flight of ideas, tangential thought process. Attitude: Cooperative Thought process: Possible delusions. Thought content: Denies SI, HI, AVH Insight: Poor Judgment: Poor Review of systems Constitutional: Reports fatigue. Neuro: Denies dizziness/lightheadedness, TBI, seizure, memory loss, numbness/tingling in extremities HEENT: Denies vision/hearing changes. Pulmonary: Reports cough due to COPD. Denies SOB, dyspnea, wheezing. Cardiac: Denies chest pain/pressure, edema, palpitations. GI: Denies abdominal pain, heartburn, N/V, constipation and diarrhea : Reports current UTI and left-sided pain. Denies dysuria, hematuria, polyuria. Physical exam General: Not in any acute distress Skin: Intact HEENT: Head atraumatic, face symmetrical Pulm: Soft wheezes bilaterally. Breathing normal without excessive effort. Cardio: Regular rate and rhythm Abdomen: Normal inspection Musculoskeletal: Moves all extremities, normal strength all extremities. Neuro: Patient alert, oriented x3. Gait normal. CN I: Sense of smell intact CN II: Visual carpenter intact CN III, IV, : EOM intact, no nystagmus. CN V: Sensation intact to light touch. CN VII: Unable to puff out cheeks symmetrically due to lack of dentition. Raises eyebrows, smile/frown. CN VIII: Hearing intact bilaterally. CN IX, X: Voice normal, soft palate elevation normal, symmetrical. CN XI: Shoulder shrug strong, equal bilaterally. CN XII: Tongue protrusion midline [facility] Medical History (Updated 03/12/23 @ 11:22 by Joe Davis MD) Anxiety Arthritis Asthma Back pain Bipolar disorder Chronic bronchitis COPD (chronic obstructive pulmonary disease) Depression Diabetes mellitus type 2, controlled, without complications GERD (gastroesophageal reflux disease) Heart attack Migraine Parkinson disease RBBB Schizoaffective disorder Sinus drainage chronic Smoker Thyroid lesion Surgical History History of hysterectomy History of tubal ligation Hx of breast lump removal rt-benign Family History (Updated 03/12/23 @ 00:57 by Jennifer Ennis RN) Father H/O heart artery stent CAD (coronary artery disease) Mother Recurrent strokes Brother CHF (congestive heart failure) Muscular dystrophy Social History Smoking Status: Current every day smoker Tobacco Type: cigarettes Substance Use Type: None Social History Comments: alone in apartment Meds Medications and Allergies Allergies aspirin Allergy (Verified 03/12/23 01:08) shock Barbiturates Allergy (Verified 03/12/23 01:08) Unknown Reaction codeine Allergy (Verified 03/12/23 01:08) Unknown Reaction fluoxetine Allergy (Verified 03/12/23 01:18) Unknown Reaction ibuprofen Allergy (Verified 03/12/23 01:18) Unknown Reaction meperidine Allergy (Verified 09/13/22 06:58) Unknown Reaction Penicillins Allergy (Verified 03/12/23 01:08) Swelling of Lip/Tongue/Throat Sulfa (Sulfonamide Antibiotics) Allergy (Verified 03/12/23 01:08) nausea; strange odor sulfamethoxazole [From Bactrim] Allergy (Verified 03/12/23 01:08) Unknown Reaction trimethoprim [From Bactrim] Allergy (Verified 03/12/23 01:08) Unknown Reaction Home Medications amantadine HCl 100 mg tablet 100 mg PO BID 09/11/22 [History Confirmed 03/12/23] benztropine 0.5 mg tablet 0.5 mg PO BID 09/11/22 [History Confirmed 03/12/23] clonidine HCl 0.1 mg tablet 0.1 mg PO DAILY 09/11/22 [History Confirmed 03/12/23] famotidine 20 mg tablet 20 mg PO BID 09/11/22 [History Confirmed 03/12/23] lithium carbonate 150 mg capsule 150 mg PO BID 09/11/22 [History Confirmed 03/12/23] loratadine 10 mg tablet 10 mg PO DAILY 09/11/22 [History Confirmed 03/12/23] meloxicam 15 mg tablet 15 mg PO DAILY 09/11/22 [History Confirmed 03/12/23] quetiapine 300 mg tablet,extended release 24 hr 300 mg PO QHS depression 09/11/22 [History Confirmed 03/12/23] quetiapine 400 mg tablet,extended release 24 hr 400 mg PO QHS depression 09/11/22 [History Confirmed 03/12/23] risperidone microspheres 25 mg/2 mL intramuscular susp,ext release (Risperdal Consta) 25 mg IM Q2W 09/11/22 [History Confirmed 03/12/23] topiramate 25 mg tablet 25 mg PO QHS 09/11/22 [History Confirmed 03/12/23] benzonatate 100 mg capsule 100 mg PO DAILY 09/13/22 [History Confirmed 03/12/23] docusate sodium 100 mg capsule 100 mg PO DAILY 03/12/23 [History Confirmed 03/12/23] fluticasone 250 mcg-salmeterol 50 mcg/dose blistr powdr for inhalation (Wixela Inhub) 1 inh inhalation BID 03/12/23 [History Confirmed 03/12/23] polyethylene glycol 3350 17 gram/dose oral powder 17 g PO DAILY PRN [id number]/10/23 [History Confirmed 03/12/23] Exam Physical Exam Vital Signs: Temp Pulse Resp BP Pulse Ox O2 Del Method 97.6 F 62 18 145/90 H 98 Room Air 03/12/23 00:34 03/12/23 00:34 03/12/23 00:34 03/12/23 00:34 03/12/23 00:34 03/12/23 00:34 Assessment/Plan (1) Schizoaffective disorder: Code(s): F25.9 - Schizoaffective disorder, unspecified Status: Acute Plan Ms. Almeida is a 67-year-old female with past medical history of bipolar disorderwho presents today for worsening delusions. She demonstrating signs of shel[place]. Restart Seroquel 300 mg p.o. nightly. Verify last date of risperidone 25 mg IM injection and continue accordingly. Encourage group participation and medication compliance. Continue to monitor mental status. Documented By: Joe Davis MD 3 [id number] Signed By: <Electronically signed by Joe Davis MD> 03/12/23 1[address] [facility] Work Phone: 1(272) 855-602609-28-2023 History general Narrative - Reported Includes: Medical History in patient's chart Description Last Updated 1 previous live (s) 02/28/2023 Last Documented On 3 9:51AM ; [facility] Previously 1 time(s) 02/28/2023 Last Documented On 3 9:51AM ; [facility] Previous hospitalizations 09/18/2022 Last Documented On 3 2:33PM ; [facility] Currently nursing 11/03/2021 Last Documented On 2 7:00PM ; [facility] status unknown for sexually tra nsmitted infection 11/03/2021 Last Documented On 2 7:00PM ; [facility] 11/03/2021 Last Documented On 2 7:00PM ; [facility] Not planning to have a baby in the next 12 months 11/03/2021 Last Documented On 2 7:00PM ; [facility] Heart Attack 03/2021 [facility] 1 07/09/2020 Last Documented On 1 10:59AM ; [facility] A recent immunization for flu 05/06/2020 Last Documented On 0 7:27PM ; [facility] Patient gave verbal consent for teleheal th 08/31/2019 Last Documented On 0 9:21AM ; [facility] History of abnormal electrocardiogram Last Documented On 9 2:12PM ; [facility] History of asthma 07/31/2018 Last Documented On 9 2:12PM ; [facility] History of cardiovascular disorder 07/31 Last Documented On 9 2:12PM ; [facility] History of respiratory disorder 07/31/19 19 Last Documented On 9 2:12PM ; [facility] History of bipolar disorder NOS 07/31/19 19 Last Documented On 9 2:12PM ; [facility] History of depression 07/31/2018 Last Documented On 9 2:12PM ; [facility] History of psychiatric disorders 019 Last Documented On 9 2:12PM ; [facility] Work Phone: [phone]) 266-904109-28-2023 Progress note* Progress note Date Encounter Last Documented by 02/28/2023 Medical Established Patient Last documented on 02/28/2023; 9:51 AM, Aaron Whitaker CNP; [facility] Active Problems & Conditions - J20.9 - Acute Bronchitis - J45.909 - Asthma Occasional - Asthma - F31.9 - Bipolar Disorder Nos - Bipolar disorder, unspecified - J44.9 - Chronic Obstructive Pulmonary Disease - M79.621 - Limb Pain Upper Arm - F32.9 - Major depressive disorder, single episode, unspecified - Depression - Schizoaffective Disorder - Z72.0 - Tobacco Use - Tobacco abuse Chief Complaint The Chief Complaint is: No health concerns. Patient reports cough and phlegm. Referred Here No prior encounters. History of Present Illness Gail Almeida is a 67 year old female. - Allergy list reviewed - Reviewed Medications pt states she is doing well. Copd having more sputum but states she is not short of breath. has been using inhalers as directed. no new concerns today Current Medication - Acetaminophen ER 650 MG Oral Tablet Extended Release take 1 tablet by mouth twice daily, 30 days, 11 refills - Acidophilus Probiotic 0.5 MG Oral Tablet TAKE 1 TABLET BY MOUTH ONCE DAILY, 30 days, 11 refills - Advair Diskus 250-50 MCG/ACT Inhalation Aerosol Powder Breath Activated inhale 1 actuation by mouth twice daily (replaces dulera r/t insurance), 30 days, 11 refills - Albuterol Sulfate HFA 108 (90 Base) MCG/ACT Inhalation Aerosol Solution INHALE 1 OR 2 PUFFS EVERY 6 HOURS NEEDED FOR WHEEZING/SHORTNESS OF BREATH (may sub equivalent), 30 days, 11 refills - Amantadine HCl 100 MG Oral Capsule Take 1 tablet by mouth twice a day DR MUNOZ, 0 days, 0 refills - Benztropine Mesylate 0.5 MG Oral Tablet Take 1 tablet by mouth twice a day DR MUNOZ, 0 days, 0 refills - Calcium 600+D 600-400 MG-UNIT Oral Tablet TAKE 1 TABLET BY MOUTH TWICE A DAY, 30 days, 11 refills - cloNIDine HCl 0.1 MG Oral Tablet give one by mouth once daily, 0 days, 0 refills - Colace 100 MG Oral Capsule take 1 capsule by mouth once daily at bedtime, 30 days, 11 refills - Dulera 200-5 MCG/ACT Inhalation Aerosol INHALE 2 PUFFS BY MOUTH TWICE A DAY, 30 days, 11 refills - Famotidine 20 MG Oral Tablet TAKE 1 TABLET BY MOUTH TWICE A DAY, 30 days, 11 refills - Fluticasone Propionate 50 MCG/ACT Nasal Suspension INHALE 1 SPRAY INTO EACH NOSTRIL TWICE A DAY, 30 days, 11 refills - Folic Acid 800 MCG Oral Tablet TAKE 1 TABLET BY MOUTH ONCE EVERY DAY, 30 days, 11 refills - HYDROcodone-Acetaminophen 5-325 MG Oral Tablet take 1/2 - 1 tablet by mouth every 6 hours as needed for severe arm pain, 5 days, 0 refills - Moneta Carbonate 150 MG Oral Capsule one capsule by mouth twice daily, 30 days, 0 refills - Loratadine 10 MG Oral Tablet take 1 tablet by mouth once daily, 30 days, 11 refills - Mobic 15 MG Oral Tablet take 1 tablet by mouth once daily (no other nsaids), 30 days, 11 refills - Polyethylene Glycol 3350 17 GM/SCOOP Oral Powder 17GM= 1CAP DISSOLVE IN 4-8 OZ LIQUID BEFORE ADMINISTRATION BY MOUTH EVERY DAY, 30 days, 11 refills - QC Vitamin B12 500 MCG Oral Tablet TAKE 1 TABLET BY MOUTH ONCE EVERY DAY ALONG WITH FOLIC ACID, 30 days, 11 refills - RisperDAL Consta 25 MG Intramuscular Suspension Reconstituted ER inject 2 milliliters IM every 2 weeks, 0 days, 0 refills - Tessalon Perles 100 MG Oral Capsule take 1 Pill by Mouth Three Times Per Day, 30 days, 5 refills - Topiramate 25 MG Oral Tablet take 1 tablet by mouth once daily at bedtime, 30 days, 11 refills Past Medical/Surgical History Reported: Patient gave verbal consent for telehealth. Medical: Previous hospitalizations. Partners sexually transmitted infection status not known. 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 Not planning to have a baby in the next 12 months. Diagnoses: Abnormal electrocardiogram. Asthma. Bipolar disorder NOS Depression Heart Attack 03/2021 [facility]. Surgical: - General surgery right shoulder ORIF 09/13/22 - Hysterectomy Social History Environmental Exposure: Secondhand cigarette smoke exposure. Tobacco use: Cigarette smoking Light (1-10/day) and 45 pack-years. Not using electronic cigarettes/vaping. Alcohol: Not using alcohol. Drug Use: Not using drugs denied by patient. Sexual: Denied sexual activity, sexual orientation Straight (not lesbian or pierce), and gender identity Female. Allergies - aspirin Reaction: shock - Bactrim DS Reaction: odor - Codeine Reaction: unknown - fluoxetine Reaction: Feels weird - Metals - -No Environmental Allergies - -No Known Food Allergies - -Other Reaction: Barbiturates, and amphetamines - PENICILLINS Reaction: Turning blue - Sulfa sensitivity Reaction: odor Family History No significant medical history in nuclear family Maternal: Breast neoplasm Review Of Systems Systemic: No fever and no chills. Head: No headache, no facial pain, no sinus pain, and no sinus pressure. Neck: No swollen glands in the neck. Eyes: No eyelid/eyebrow symptoms, no irritation of the eyes, and no discharge from the eyes. Otolaryngeal: No ear symptoms, no throat symptoms, and no oral cavity symptoms. Cardiovascular: No chest pain or discomfort and no palpitations. Pulmonary: No pulmonary symptoms, no cough, and no wheezing. Gastrointestinal: No dysphagia, no nausea, no vomiting, and no abdominal pain. Genitourinary: No hematuria, urine odor normal, no change in urinary frequency, and no feelings of urinary urgency. Musculoskeletal: No musculoskeletal symptoms. Neurological: No neurological symptoms, no dizziness, no lightheadedness, and no fainting. Psychological: No psychological symptoms. Skin: No skin symptoms, no dry skin, no pruritus, no skin changes, and no localized skin discoloration. Physical Findings - Vitals taken 02/28/2023 09:35 am BP-Sitting L111/76 mmHg BP Cuff SizeRegular Pulse Rate-Aazhlmd19 bpm Eawohp18 in Xuufiz641 lbs 12.8 oz Body Mass Index24 kg/m2 Body Surface Area1.7 m2 Oxygen Ttqygyhwgm65 % Vital Signs: - Systolic blood pressure < 130 mmHg. - Diastolic Blood Pressure < 80 mmHg. General Appearance: - In no acute distress. Eyes: General/bilateral: Extraocular Movements: - Normal. Pupils: - PERRLA. External: - Eye showed no abnormalities. - No discharge from the conjunctiva. Ears: General/bilateral: External Auditory Canal: - Normal. Nose: General/bilateral: Discharge: - No nasal discharge. External Deformities: - No external nose deformities. Cavity: - Nasal mucosa normal. Oral Cavity: Teeth: - Dental no abnormalities. Pharynx: Oropharynx: - Normal. Lymph Nodes: - Normal. Lungs: - Clear to auscultation. - No wheezing was heard. Cardiovascular: Heart Rate And Rhythm: - Normal. Heart Sounds: - Normal. Murmurs: - No murmurs were heard. Edema: - Not present. Abdomen: Visual Inspection: - Abdomen was normal on visual inspection. Palpation: - Abdominal non-tender. Spleen: - Not enlarged. Skin: - Color and pigmentation were normal. - No skin lesions. Tests Laboratory-based Chemistry: Other Laboratory Tests: Screening for sexually transmitted infections was not performed. Educational Testing: In the Past 4 Weeks, Asthma kept me from getting much done at work/school/work? (5 Pts) None of the Time, During the past 4 weeks, how often have you had shortness of breath? (4 Pts) Once or twice a week, During the past for 4 weeks, asthma symptoms woke me up at night or earlier than (4 Pts) Once or Twice, During the past 4 weeks, have used rescue inhaler or nebulizer medication (5 Pts) Not at all, and Asthma control during the past 4 weeks (4 Pts) Well controlled. Assessment - Z12.39 - Encounter for other screening for malignant neoplasm of breast - Z72.0 - Tobacco use - Z68.24 - Body mass index [BMI] 24.0-24.9, adult - J44.9 - Chronic obstructive pulmonary disease, unspecified Test Conclusions Asthma Control Test (ACT), adult total score was 22 02/28/2023. Therapy - Patient refused flu vaccine. Discussed benefits of flu vaccine with Patient. Vaccinations - Received dose of Reported: Patient has received the COVID Vaccine Counseling/Education - Does not want to stop using current contraception - Wishing to stop smoking Discussed Quit Line resources - Discussed nutritional needs teach healthy choices including fruits and vegetables - Patient education about a proper diet - Not requesting contraception - Discussed concerns about exercise: promote physical activity Plan StartCited- Encounter for oth screening for malignant neoplasm of breast Outside Diagn Tests/Imaging: Mammogram - Screening (17038) EndCited StartCited- Other Topiramate 25 MG tablet take 1 tablet by mouth once daily at bedtime, 30 days, 11 refills Benzonatate 200 MG capsule 1 tab po TID as needed, 30 days, 1 refills EndCited Advance Directives - Advance Care Planning Health Reminders - ACT satisfied 02/28/2023. - Assess BMI satisfied 02/28/2023. - Assess Tobacco Use satisfied 02/28/2023. - BENOIT-2 satisfied 02/28/2023. - PHQ9 / PHQA satisfied 02/28/2023. - Smoking & Tobacco Cessation Intervention and Counseling satisfied 02/28/2023. User Defined 1 BENOIT-2 score was 0 02/28/2023, BENOIT-7 score [BENOIT-7] Feeling nervous, anxious or on edge? + 0 pt : Not at all, [BENOIT-7] Not being able to stop or control worrying? + 0 pt : Not at all, Patient Health Questionnaire 9-Item total score was two 02/28/2023, [PHQ-9-1] Little interest or pleasure in doing things? + 0 pt : Not at all, [PHQ-9-2] Feeling down, depressed, or hopeless? + 0 pt : Not at all, [PHQ-9-3] Trouble falling or staying asleep or sleeping too much? + 2 pt : More than half the days, [PHQ-9-4] Feeling tired or having little energy? + 0 pt : Not at all, [PHQ-9-5] Poor appetite or overeating? + 0 pt : Not at all, [PHQ-9-6] Feeling bad about yourself-or that you are a failure + 0 pt : Not at all, [PHQ-9-7] Trouble concentrating on things such as reading the newspaper + 0 pt : Not at all, [PHQ-9-8] Moving or speaking so slowly that other people have noticed. + 0 pt : Not at all, and [PHQ-9-9] Thoughts that you would be better off or hurting yourself? + 0 pt : Not at all. [facility]07-12-2023 Evaluation note* Encounter Date Diagnosis Assessment Notes Treatment Notes Treatment Clinical Notes Dec, Other closed displaced fracture of proximal end of right humerus with routine healing, subsequent encounter (ICD-10 - S42.291D) Gail is here for follow-up of right greater tuberosity ORIF. She is now 3 months out. She is doing well. Surgical incisions benign. Physical exam is benign. Images have been reviewed with her at bedside. Continue calcium vitamin D supplementation. Her motion is doing very well at this time. Her cuff strength is recovering nicely as well. At this time she can continue to advance as tolerated without restrictions. She is not having any pain at this time and I would just continue to monitor from here. She has any issues that arise in the future she should return but may follow-up as needed from now Needs DEXA scan in future Radiographs reviewed with patient today. Discussed with patient she is progressing well. Discussed with patient she can transition to an at home physical therapy program. Discussed she can progress to activity as tolerated. Advised to call with any questions or concerns Dec, Traumatic complete tear of right rotator cuff, subsequent encounter (ICD-10 - S46.011D) Dec, Other specified postprocedural states (ICD-10 - Z98.890) [employer] Other 06-19-2023 Progress note* Progress note Date Encounter Last Documented by 11/19/2022 Medical Established Patient Last documented on 11/19/2022; 10:15 AM, Karla Clark CNP; [facility] Active Problems & Conditions - J20.9 - Acute Bronchitis - J45.909 - Asthma Occasional - Asthma - F31.9 - Bipolar Disorder Nos - Bipolar disorder, unspecified - J44.9 - Chronic Obstructive Pulmonary Disease - M79.621 - Limb Pain Upper Arm - F32.9 - Major depressive disorder, single episode, unspecified - Depression - Schizoaffective Disorder - Z72.0 - Tobacco Use - Tobacco abuse Chief Complaint The Chief Complaint is: Pulled muscle right upper arm. Patient said she has been having the pain for about 3 weeks. Feels like a pulled muscle. Chest congestion since a couple weeks ago.Productive (white) cough. SOB at times. No fever. Referred Here No prior encounters. History of Present Illness Gail Almeida is a 67 year old female. - Allergy list reviewed - Reviewed Medications Presents to discuss worsening right arm pain , has been using ice . rates 01/10 . no injury but did have recent rotator cuff surgery . aware to take pain meds exectly as rx'd and the importance of only doing that short term to prevent dependence Current Medication - Acetaminophen ER 650 MG Oral Tablet Extended Release take 1 tablet by mouth twice daily, 30 days, 11 refills - Acidophilus Probiotic 0.5 MG Oral Tablet TAKE 1 TABLET BY MOUTH ONCE DAILY, 30 days, 11 refills - Advair Diskus 250-50 MCG/ACT Inhalation Aerosol Powder Breath Activated inhale 1 actuation by mouth twice daily (replaces dulera r/t insurance), 30 days, 11 refills - Albuterol Sulfate HFA 108 (90 Base) MCG/ACT Inhalation Aerosol Solution INHALE 1 OR 2 PUFFS EVERY 6 HOURS NEEDED FOR WHEEZING/SHORTNESS OF BREATH (may sub equivalent), 30 days, 11 refills - Amantadine HCl 100 MG Oral Capsule Take 1 tablet by mouth twice a day DR MUNOZ, 0 days, 0 refills - Benztropine Mesylate 0.5 MG Oral Tablet Take 1 tablet by mouth twice a day DR MUNOZ, 0 days, 0 refills - Calcium 600+D 600-400 MG-UNIT Oral Tablet TAKE 1 TABLET BY MOUTH TWICE A DAY, 30 days, 11 refills - cloNIDine HCl 0.1 MG Oral Tablet give one by mouth once daily, 0 days, 0 refills - Colace 100 MG Oral Capsule take 1 capsule by mouth once daily at bedtime, 30 days, 11 refills - Dulera 200-5 MCG/ACT Inhalation Aerosol INHALE 2 PUFFS BY MOUTH TWICE A DAY, 30 days, 11 refills - Famotidine 20 MG Oral Tablet TAKE 1 TABLET BY MOUTH TWICE A DAY, 30 days, 11 refills - Fluticasone Propionate 50 MCG/ACT Nasal Suspension INHALE 1 SPRAY INTO EACH NOSTRIL TWICE A DAY, 30 days, 11 refills - Folic Acid 800 MCG Oral Tablet TAKE 1 TABLET BY MOUTH ONCE EVERY DAY, 30 days, 11 refills - Moneta Carbonate 300MG Oral Tablet 300 MG take 1 tab in the AM, 1 1/2 tabs PM, 0 days, 0 refills - Loratadine 10 MG Oral Tablet take 1 tablet by mouth once daily, 30 days, 11 refills - Mobic 15 MG Oral Tablet take 1 tablet by mouth once daily (no other nsaids), 30 days, 11 refills - Polyethylene Glycol 3350 17 GM/SCOOP Oral Powder 17GM= 1CAP DISSOLVE IN 4-8 OZ LIQUID BEFORE ADMINISTRATION BY MOUTH EVERY DAY, 30 days, 11 refills - QC Vitamin B12 500 MCG Oral Tablet TAKE 1 TABLET BY MOUTH ONCE EVERY DAY ALONG WITH FOLIC ACID, 30 days, 11 refills - QUEtiapine Fumarate 300 MG Oral Tablet one table daily at bedtime give with 300mg to equal 700mg, 0 days, 0 refills - QUEtiapine Fumarate 400 MG Oral Tablet daily at bedtime, 0 days, 0 refills - RisperDAL Consta 25 MG Intramuscular Suspension Reconstituted ER inject 2 milliliters IM every 2 weeks, 0 days, 0 refills - Tessalon Perles 100 MG Oral Capsule take 1 Pill by Mouth Three Times Per Day, 30 days, 5 refills - Topiramate 25 MG Oral Tablet take 1 tablet by mouth once daily at bedtime, 30 days, 11 refills Past Medical/Surgical History Reported: Patient gave verbal consent for telehealth. Medical: Previous hospitalizations. Partners sexually transmitted infection status not known. Immunization History: Recent immunization for flu. 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 Not planning to have a baby in the next 12 months. Diagnoses: Abnormal electrocardiogram. Asthma. Bipolar disorder NOS Depression Heart Attack 03/2021 [facility]. Surgical: - General surgery right shoulder ORIF 09/13/22 - Hysterectomy Social History Environmental Exposure: No secondhand cigarette smoke exposure. Tobacco use: Cigarette smoking Light (1-10/day). Not using electronic cigarettes/vaping. Sexual: Sexual orientation Straight (not lesbian or pierce) and gender identity Female. Allergies - aspirin Reaction: shock - Bactrim DS Reaction: odor - Codeine Reaction: unknown - fluoxetine Reaction: Feels weird - Metals - -No Environmental Allergies - -No Known Food Allergies - -Other Reaction: Barbiturates, and amphetamines - PENICILLINS Reaction: Turning blue - Sulfa sensitivity Reaction: odor Family History No significant medical history in nuclear family Review Of Systems Head: No head symptoms. Neck: No neck symptoms. Eyes: No eye symptoms. Otolaryngeal: No ear symptoms, no nasal symptoms, no nose and sinus finding, no throat symptoms, no oral cavity symptoms, and no jaw symptoms. Breasts: No breast symptoms. Cardiovascular: No cardiovascular symptoms and no chest pain or discomfort. Pulmonary: No pulmonary symptoms. Gastrointestinal: No gastrointestinal symptoms. Genitourinary: No genitourinary symptoms. Musculoskeletal: No musculoskeletal symptoms. Neurological: No neurological symptoms. Psychological: No psychological symptoms. Skin: No skin symptoms. Physical Findings - Vitals taken 11/19/2022 09:15 am BP-Sitting L133/60 mmHg BP Cuff SizeRegular Pulse Rate-Ipvpnvr64 bpm Temp-Burerohh15.6 F Lhedaz97 in Szftgp097 lbs 6.4 oz Body Mass Index23.6 kg/m2 Body Surface Area1.7 m2 Oxygen Hqtlcopsyb06 % General Appearance: - Awake. - Alert. - Well developed. - Well nourished. - In no acute distress. Head: Appearance: - Head normocephalic. Scar: - No scar on the head. Scalp: - Normal. Skull Tenderness: - No skull tenderness. Crepitus: - Head showed no crepitus. Temporal Arteries: - Normal. Neck: Appearance: - Of the neck was normal. Palpation: - Of the neck revealed abnormalities mass left neck (previoulsy treated with surgery). Suppleness: - Neck demonstrated no decrease in suppleness. Maneuvers: - Neck maneuvers elicited no abnormal responses. Weakness: - No neck weakness was seen. Thyroid: - Not diffusely enlarged. - Did not have a mass. - Did not have a nodule. - Not irregular to palpation. - Not tender. Cervical Mass: - No cervical mass was seen. Scar: - No surgical/traumatic scar was seen on the neck. Eyes: General/bilateral: Extraocular Movements: - Normal. Pupils: - PERRLA. - Size of the pupil was normal. - Reactive to light. - Showed normal accommodation. - No abnormal pupil function. External: - Eyelids showed no abnormalities. Sclera: - Normal. Ears: General/bilateral: Outer Ear: - Normal. Tympanic Membrane: - Examined. Hearing: - No hearing abnormalities. Right Ear: - Examined. Left Ear: - Examined. Nose: General/bilateral: Discharge: - No nasal discharge. Nasal Malformation: - No nasal malformation. External Deformities: - No external nose deformities. External Mass: - No external nasal mass. Piercings: - Nose was not pierced. Cavity: - No nasal cavity abnormalities. Nasal Erythema: - No nasal erythema was noted. Nasal Edema: - No nasal edema was noted. Nasal Bone Tenderness: - No nasal bone tenderness. Sinus Tenderness: - No sinus tenderness. Oral Cavity: - Odor of breath was normal. Lips: - Showed no abnormalities. Frenum Attachment: - Showed no abnormalities. Gums: - Examination showed no abnormalities. Teeth: - Dental no abnormalities. Buccal Mucosa: - Showed no mucosal abnormalities. Tongue: - Examination showed no abnormalities. Salivary Glands: - No salivary calculus was found. - Sublingual glands were not tender. - Sublingual glands were not swollen. - Sublingual glands did not have erythematous overlying mucosa. Palate: - Hard palate was normal. - Not cleft. - Showed no mucosal abnormalities. Pharynx: Nasopharynx: - Normal. Oropharynx: - Normal. Hypopharynx: - Normal. Mucosal: - Pharynx had no mucosal abnormalities. Lungs: - Respiration rhythm and depth was normal. Cardiovascular: Heart Rate And Rhythm: - Normal. Heart Sounds: - Normal. Abdomen: Visual Inspection: - Abdomen was normal on visual inspection. Musculoskeletal System: General/bilateral: - Abnormal movement of all extremities pain with abduction of right arm, sl swelling right lateral upper arm at area of pts concern. Neurological: - Oriented to time, place, and person. Skin: - General appearance was normal. Assessment - Z68.23 - Body mass index [BMI] 23.0-23.9, adult - J20.9 - Acute bronchitis, unspecified - M79.621 - Pain in right upper arm Vaccinations - Received dose of Reported: Patient has received the COVID Vaccine Counseling/Education - Wishing to stop smoking Discussed Quit Line resources - Discussed nutritional needs teach healthy choices including fruits and vegetables - Patient education about a proper diet - Discussed concerns about exercise: promote physical activity Plan StartCited- Acute bronchitis, unspecified predniSONE 20 MG tablet take 1 tablet by mouth once daily in the am, 5 days, 0 refills EndCited StartCited- Other Follow-up Appointment keep upcoming appt 02/28 , call if earlier appt is needed Polyethylene Glycol 3350 17 GM/SCOOP gram 17GM= 1CAP DISSOLVE IN 4-8 OZ LIQUID BEFORE ADMINISTRATION BY MOUTH EVERY DAY, 30 days, 11 refills Albuterol Sulfate HFA 108 (90 Base) MCG/ACT gram INHALE 1 OR 2 PUFFS EVERY 6 HOURS NEEDED FOR WHEEZING/SHORTNESS OF BREATH (may sub equivalent), 30 days, 11 refills Colace 100 MG capsule take 1 capsule by mouth once daily at bedtime, 30 days, 11 refills Acidophilus Probiotic 0.5 MG tablet TAKE 1 TABLET BY MOUTH ONCE DAILY, 30 days, 11 refills Dulera 200-5 MCG/ACT gram INHALE 2 PUFFS BY MOUTH TWICE A DAY, 30 days, 11 refills Fluticasone Propionate 50 MCG/ACT gram INHALE 1 SPRAY INTO EACH NOSTRIL TWICE A DAY, 30 days, 11 refills HYDROcodone-Acetaminophen 5-325 MG tablet take 1/2 - 1 tablet by mouth every 6 hours as needed for severe arm pain, 5 days, 0 refills Famotidine 20 MG tablet TAKE 1 TABLET BY MOUTH TWICE A DAY, 30 days, 11 refills Polyethylene Glycol 3350 17 GM/SCOOP gram 17GM= 1CAP DISSOLVE IN 4-8 OZ LIQUID BEFORE ADMINISTRATION BY MOUTH EVERY DAY, 30 days, 11 refills Albuterol Sulfate HFA 108 (90 Base) MCG/ACT gram INHALE 1 OR 2 PUFFS EVERY 6 HOURS NEEDED FOR WHEEZING/SHORTNESS OF BREATH (may sub equivalent), 30 days, 11 refills EndCited StartCited- Other allergic rhinitis Loratadine 10 MG tablet take 1 tablet by mouth once daily, 30 days, 11 refills EndCited StartCited- Pain in right leg Mobic 15 MG tablet take 1 tablet by mouth once daily (no other nsaids), 30 days, 11 refills EndCited Practice Management Systolic blood pressure 130 - 139 mmHg and diastolic < 80 mmHg diastolic < 80 mmHg. Advance Directives - Advance Care Planning Health Reminders - Assess BMI satisfied 11/19/2022. - Assess Tobacco Use satisfied 11/19/2022. - PHQ9 / PHQA satisfied 11/19/2022. - Smoking & Tobacco Cessation Intervention and Counseling satisfied 11/19/2022. User Defined 1 PHQ-9: total score was 0 11/19/2022, [PHQ-9-1] Little interest or pleasure in doing things? + 0 pt : Not at all, [PHQ-9-2] Feeling down, depressed, or hopeless? + 0 pt : Not at all, [PHQ-9-3] Trouble falling or staying asleep or sleeping too much? + 0 pt : Not at all, [PHQ-9-4] Feeling tired or having little energy? + 0 pt : Not at all, [PHQ-9-5] Poor appetite or overeating? + 0 pt : Not at all, [PHQ-9-6] Feeling bad about yourself-or that you are a failure + 0 pt : Not at all, [PHQ-9-7] Trouble concentrating on things such as reading the newspaper + 0 pt : Not at all, [PHQ-9-8] Moving or speaking so slowly that other people have noticed. + 0 pt : Not at all, and [PHQ-9-9] Thoughts that you would be better off or hurting yourself? + 0 pt : Not at all. [facility]06-19-2023 Instructions Includes: Instructions for all patient encounters Instructions to patient Intervention and counseling on cessation of tobacco use, 3-10 minutes Discussed medication and nicotine replacement for tobacco cessation Last Documented On 3 8:54AM ; [facility] Intervention and counseling on cessation of tobacco use, 3-10 minutes Discussed medication and nicotine replacement for tobacco cessation Last Documented On 2 1:56PM ; [facility] Intervention and counseling on cessation of tobacco use, 3-10 minutes Last Documented On 0 2:07PM ; [facility] Return to the clinic if cond ition worsens or new symptoms arise Last Documented On 9 1:59PM ; [facility] Intervention and counseling on cessation of tobacco use, 3-10 minutes Last Documented On 9 10:39AM ; [facility] Education and Decision Aids were provided during visit for: Discussed nutritional needs teach healthy choices including fruits and vegetables Last Documented On 3 9:20AM ; [facility] Patient education about a pr oper diet Last Documented On 3 9:20AM ; [facility] Discussed concerns about exe rcise : promote physical activity Last Documented On 3 9:20AM ; [facility] Discussed nutritional needs teach healthy choices including fruits and vegetables Last Documented On 3 2:02PM ; [facility] Patient education about a pr oper diet Last Documented On 3 2:02PM ; [facility] Discussed concerns about exe rcise : promote physical activity Last Documented On 3 2:02PM ; [facility] Discussed nutritional needs teach healthy choices including fruits and vegetables Last Documented On 3 8:32AM ; [facility] Patient education about a pr oper diet Last Documented On 3 8:32AM ; [facility] Discussed concerns about exe rcise : promote physical activity Last Documented On 3 8:32AM ; [facility] Discussed nutritional needs teach healthy choices including fruits and vegetables Last Documented On 3 11:28AM ; [facility] Patient education about a pr oper diet Last Documented On 3 11:28AM ; [facility] Discussed concerns about exe rcise : promote physical activity Last Documented On 3 11:28AM ; [facility] Discussed nutritional needs teach healthy choices including fruits and vegetables Last Documented On 2 2:01PM ; [facility] Patient education about a pr oper diet Last Documented On 2 2:01PM ; [facility] Discussed concerns about exe rcise : promote physical activity Last Documented On 2 2:01PM ; [facility] Discussed nutritional needs teach healthy choices including fruits and vegetables Last Documented On 2 2:11PM ; [facility] Patient education about a pr oper diet Last Documented On 2 2:11PM ; [facility] Discussed concerns about exe rcise : promote physical activity Last Documented On 2 2:11PM ; [facility] Discussed current self-care methods/coping skills. ~Validated and normalized pt's feelings while assisting patient process recent events. ~Discussed ongoing counseling. ~Discussed lifestyle changes to address chronic illness. ~Supported patient's personal health goals ~wordfinds. walk, read, eat, enjoy my best friesnd Last Documented On 2 5:54PM ; [facility] Discussed nutritional needs teach healthy choices including fruits and vegetables Last Documented On 2 10:04AM ; [facility] Patient education about a pr oper diet Last Documented On 2 10:04AM ; [facility] Discussed concerns about exe rcise : promote physical activity Last Documented On 2 10:04AM ; [facility] Discussed nutritional needs teach healthy choices including fruits and vegetables Last Documented On 2 1:25PM ; [facility] Patient education about a pr oper diet Last Documented On 2 1:25PM ; [facility] Discussed concerns about exe rcise : promote physical activity Last Documented On 2 1:25PM ; [facility] Discussed nutritional needs teach healthy choices including fruits and vegetables Last Documented On 1 10:08AM ; [facility] Patient education about a pr oper diet Last Documented On 1 10:08AM ; [facility] Discussed concerns about exe rcise : promote physical activity Last Documented On 1 10:08AM ; [facility] Discussed nutritional needs teach healthy choices including fruits and vegetables Last Documented On 1 1:12PM ; [facility] Patient education about a pr oper diet Last Documented On 1 1:12PM ; [facility] Patient education about a pr oper diet Last Documented On 1 1:30PM ; [facility] Patient education about meal planning Last Documented On 1 1:30PM ; [facility] Education about changing eat ing habits Last Documented On 1 1:30PM ; [facility] Patient education about high fiber diet Last Documented On 1 1:30PM ; [facility] Patient education about low fat diet Last Documented On 1 1:30PM ; [facility] Patient education about low cholesterol diet Last Documented On 1 1:30PM ; [facility] Patient education about low carbohydrate diet Last Documented On 1 1:30PM ; [facility] Patient education about high protein diet Last Documented On 1 1:30PM ; [facility] Discussed concerns about exe rcise : promote physical activity Last Documented On 1 1:12PM ; [facility] Education/counseling conduct ed by pharmacist Last Documented On 0 1:39PM ; [facility] Vaccination counseling Last Documented On 0 1:39PM ; [facility] Discussed concerns about exe rcise : promote physical activity Last Documented On 0 2:16PM ; [facility] Patient goals decrease short ness of breath episodes Last Documented On 0 2:11PM ; [facility] Patient states that she uses her rescue inhaler maybe 2 times a month. States that she is in today because other people told her that she has shortness of breath. ~ ~States that she uses her dulera 1 puff by mouth twice a day (uses spacer with inhaler). ~ ~Spirometry was done today with some difficulty during test. Spirometry showed mild restriction. ~ ~Counseled patient on the importance of adherence to inhalers and use of spacer. Patient states that she hears a whistle from time to time when using spacer. Counseled patient that spacer noise can be due to breathing in too fast. ~ ~Possible Raynauds Syndrome due to middle left finger tip turning blue. States this happens every winter. Counseled patient on making sure she wears gloves and to keep her fingers warm. ~ ~Blood pressure well controlled today at 116/70. Previous elevated blood pressures have been due to patient smoking prior to appointment per patient. Counseled on the importance of quitting and for her to reach out to us when she is ready to quit. ~ ~States recently received flu and pneumonia vaccine recently Last Documented On 0 2:24PM ; [facility] Patient education about a pr oper diet Last Documented On 0 2:54PM ; [facility] Patient education about meal planning Last Documented On 0 2:54PM ; [facility] Education about changing eat ing habits Last Documented On 0 2:54PM ; [facility] Patient education about high fiber diet Last Documented On 0 2:54PM ; [facility] Patient education about low fat diet Last Documented On 0 2:54PM ; [facility] Patient education about low cholesterol diet Last Documented On 0 2:54PM ; [facility] Patient education about low carbohydrate diet Last Documented On 0 2:54PM ; [facility] Patient education about high protein diet Last Documented On 0 2:54PM ; [facility] Discussed nutritional needs teach healthy choices including fruits and vegetables Last Documented On 0 11:11AM ; [facility] Patient education about a pr oper diet Last Documented On 0 11:11AM ; [facility] Patient education about a pr oper diet Last Documented On 0 11:28AM ; [facility] Patient education about meal planning Last Documented On 0 11:28AM ; [facility] Education about changing eat ing habits Last Documented On 0 11:28AM ; [facility] Patient education about high fiber diet Last Documented On 0 11:28AM ; [facility] Patient education about low fat diet Last Documented On 0 11:28AM ; [facility] Patient education about low cholesterol diet Last Documented On 0 11:28AM ; [facility] Patient education about low carbohydrate diet Last Documented On 0 11:28AM ; [facility] Patient education about high protein diet Last Documented On 0 11:28AM ; [facility] Discussed concerns about exe rcise : promote physical activity Last Documented On 0 11:11AM ; [facility] Education/counseling conduct ed by pharmacist Last Documented On 0 1:41PM ; [facility] Patient states that she lonnie gonzalez has issues using inhaler. Patient brought in inhaler to appt. Rarely uses her rescue inhaler, may use it every 3-4 months ~ ~Performed technique where the spacer whistled. Patient was shown video on proper inhalation technique and patient repeated steps. Patient is to not blow in the spacer but to breath in medication from the spacer. ~ ~Had questions on how to use nasal spray and eye ointment. Patient was counseled on how to use. ~ ~Interested in switching omeprazole to famotidine or rantidine. Please follow up at next scheduled visit. ~ ~She has cut down her smoking to 3 cigarettes a day and will be cutting down smoking on her own Last Documented On 0 2:08PM ; [facility] Education/counseling conduct ed by pharmacist Last Documented On 9 1:12PM ; [facility] Patient states that she lonnie gonzalez has issues with her inhaler with the spacer. Patient did not bring in inhaler or spacer. Patient was told to bring in inhalers at next scheduled visit for pharmacist to assess inhalation technique. Patient is agreeable Last Documented On 9 1:13PM ; [facility] Patient goals Start using ch deon to help with inhaling dulera Last Documented On 9 2:40PM ; [facility] Patient states that she is g etting frustrated with inhaler use and nasal spray. ~ ~Patient performed correct technique in office but she is still frustrated. Provided patient with education sheet on how to use inhalers. Patient is interested in using spacer to help with dulera administration. ~ ~Cut down smoking from 4-6 cigarettes to 2 cigarettes cold turkey. ~ ~Recommended flu and pneumonia vaccine but denied at this time. Counseled on the importance of vaccines Last Documented On 9 2:51PM ; [facility] Discussed nutritional needs teach healthy choices including fruits and vegetables Last Documented On 9 9:29AM ; [facility] Patient education about a pr oper diet Last Documented On 9 9:29AM ; [facility] Discussed concerns about exe rcise : promote physical activity Last Documented On 9 9:29AM ; [facility] Work Phone: [phone]) 273-859405-31-2023 Evaluation note* Encounter Date Diagnosis Assessment Notes Treatment Notes Treatment Clinical Notes October, Other closed displaced fracture of proximal end of right humerus with routine healing, subsequent encounter (ICD-10 - S42.291D) Gail is here for follow-up of right greater tuberosity ORIF. She is now 7 weeks out. She is doing well. Surgical incisions benign. Physical exam is benign. Images have been reviewed with her at bedside. Continue calcium vitamin D supplementation. Physical therapy for passive and active range of motion, can start strengthening as well. Pain control as needed. Follow-up in another 6 weeks for repeat x-rays of the shoulder. Needs DEXA scan in future Radiographs reviewed with patient today. Discussed with patient she can progress activity as tolerated. Advised patient to continue with physical therapy. Patient instructed on gentle motion and strength exercise. October, Traumatic complete tear of right rotator cuff, subsequent encounter (ICD-10 - S46.011D) October, Other specified postprocedural states (ICD-10 - Z98.890) [facility] [employer] Other 05-05-2023 Evaluation note* Encounter Date Diagnosis Assessment Notes Treatment Notes Treatment Clinical Notes October, Other closed displaced fracture of proximal end of right humerus with routine healing, subsequent encounter (ICD-10 - S42.291D) [facility] [employer] Other 05-03-2023 Evaluation note* Encounter Date Diagnosis Assessment Notes Treatment Notes Treatment Clinical Notes October, Other closed displaced fracture of proximal end of right humerus with routine healing, subsequent encounter (ICD-10 - S42.291D) Gail is here for follow-up of right greater tuberosity ORIF. She is now 3 weeks out. She is doing well. Surgical incisions benign. Physical exam is benign. Images have been reviewed with her at bedside. Continue calcium vitamin D supplementation. Physical therapy for passive range of motion. Okay to discontinue sling but no active use of the arm explained. Pain control as needed. Follow-up in another 3 to 4 weeks for repeat x-rays of the shoulder. Needs DEXA scan in future Radigraphs reviewed with patient today. Discussed with patient she can discontinue sling, may wear for comfort. Instructed to start physical therapy to work on range of motion exercises October, Traumatic complete tear of right rotator cuff, subsequent encounter (ICD-10 - S46.011D) October, Other specified postprocedural states (ICD-10 - Z98.890) October, Other See orders for this visit as documented in the electronic medical record. [employer] Other 04-21-2023 Progress note* Progress note Date Encounter Last Documented by 09/21/2022 Chart Update Last documented on 09/21/2022; 4:58 PM, Karla Clark CNP; [facility] Active Problems & Conditions - J45.909 - Asthma Occasional - Asthma - F31.9 - Bipolar Disorder Nos - Bipolar disorder, unspecified - J44.9 - Chronic Obstructive Pulmonary Disease - F32.9 - Major depressive disorder, single episode, unspecified - Depression - Schizoaffective Disorder - Z72.0 - Tobacco Use - Tobacco abuse Referred Here No prior encounters. History of Present Illness Gail Almeida is a 66 year old female. - Reviewed Medications. Current Medication - Acetaminophen 500 MG Oral Tablet two tablets three times daily, 0 days, 0 refills - Acetaminophen ER 650 MG Oral Tablet Extended Release take 1 tablet by mouth twice daily, 30 days, 11 refills - Acidophilus Probiotic 0.5 MG Oral Tablet TAKE 1 TABLET BY MOUTH ONCE DAILY, 30 days, 11 refills - Advair Diskus 250-50 MCG/ACT Inhalation Aerosol Powder Breath Activated inhale 1 actuation by mouth twice daily (replaces dulera r/t insurance), 30 days, 11 refills - Albuterol Sulfate HFA 108 (90 Base) MCG/ACT Inhalation Aerosol Solution INHALE 1 OR 2 PUFFS EVERY 6 HOURS NEEDED FOR WHEEZING/SHORTNESS OF BREATH (october sub equivalent), 30 days, 11 refills - Amantadine HCl 100 MG Oral Capsule Take 1 tablet by mouth twice a day DR MUNOZ, 0 days, 0 refills - Benztropine Mesylate 0.5 MG Oral Tablet Take 1 tablet by mouth twice a day DR MUNOZ, 0 days, 0 refills - Calcium 600+D 600-400 MG-UNIT Oral Tablet TAKE 1 TABLET BY MOUTH TWICE A DAY, 30 days, 11 refills - cloNIDine HCl 0.1 MG Oral Tablet give one by mouth once daily, 0 days, 0 refills - Colace 100 MG Oral Capsule take 1 capsule by mouth once daily at bedtime, 30 days, 11 refills - Dulera 200-5 MCG/ACT Inhalation Aerosol INHALE 2 PUFFS BY MOUTH TWICE A DAY, 30 days, 11 refills - Famotidine 20 MG Oral Tablet TAKE 1 TABLET BY MOUTH TWICE A DAY, 30 days, 11 refills - Fluticasone Propionate 50 MCG/ACT Nasal Suspension INHALE 1 SPRAY INTO EACH NOSTRIL TWICE A DAY, 30 days, 11 refills - Folic Acid 800 MCG Oral Tablet TAKE 1 TABLET BY MOUTH ONCE EVERY DAY, 30 days, 11 refills - HYDROcodone-Acetaminophen 5-325 MG Oral Tablet 5 days, 0 refills - Moneta Carbonate 300MG Oral Tablet 300 MG take 1 tab in the AM, 1 1/2 tabs PM, 0 days, 0 refills - Loratadine 10 MG Oral Tablet take 1 tablet by mouth once daily, 30 days, 11 refills - Mobic 15 MG Oral Tablet take 1 tablet by mouth once daily (no other nsaids), 30 days, 11 refills - Polyethylene Glycol 3350 17 GM/SCOOP Oral Powder 17GM= 1CAP DISSOLVE IN 4-8 OZ LIQUID BEFORE ADMINISTRATION BY MOUTH EVERY DAY, 30 days, 11 refills - QC Vitamin B12 500 MCG Oral Tablet TAKE 1 TABLET BY MOUTH ONCE EVERY DAY ALONG WITH FOLIC ACID, 30 days, 11 refills - QUEtiapine Fumarate 300 MG Oral Tablet one table daily at bedtime give with 300mg to equal 700mg, 0 days, 0 refills - QUEtiapine Fumarate 400 MG Oral Tablet daily at bedtime, 0 days, 0 refills - RisperDAL Consta 25 MG Intramuscular Suspension Reconstituted ER inject 2 milliliters IM every 2 weeks, 0 days, 0 refills - Tessalon Perles 100 MG Oral Capsule take 1 Pill by Mouth Three Times Per Day, 30 days, 5 refills - Topiramate 25 MG Oral Tablet take 1 tablet by mouth once daily at bedtime, 30 days, 11 refills Past Medical/Surgical History Reported: Patient gave verbal consent for telehealth. Medical: Previous hospitalizations. Partners sexually transmitted infection status not known. Immunization History: Recent immunization for flu. 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 Not planning to have a baby in the next 12 months. Diagnoses: Abnormal electrocardiogram. Asthma. Bipolar disorder NOS Depression Heart Attack 03/2021 [facility]. Surgical: - General surgery right shoulder ORIF 09/13/22 - Hysterectomy Social History Environmental Exposure: Secondhand cigarette smoke exposure. Sexual: Sexual orientation Straight (not lesbian or pierce) and gender identity Female. Allergies - aspirin Reaction: shock - Bactrim DS Reaction: odor - Codeine Reaction: unknown - fluoxetine Reaction: Feels weird - Metals - -No Environmental Allergies - -No Known Food Allergies - -Other Reaction: Barbiturates, and amphetamines - PENICILLINS Reaction: Turning blue - Sulfa sensitivity Reaction: odor Family History No significant medical history in nuclear family Vaccinations - Received dose of Reported: Patient has received the COVID Vaccine Advance Directives - Advance Care Planning [facility]04-18-2023 History general Narrative - Reported Includes: Medical History in patient's chart Description Last Updated Previous hospitalizations 09/18/2022 Last Documented On 3 2:33PM ; [facility] Currently nursing 11/03/2021 Last Documented On 2 7:00PM ; [facility] Partners status unknown for sexually tra nsmitted infection 11/03/2021 Last Documented On 2 7:00PM ; [facility] 11/03/2021 Last Documented On 2 7:00PM ; [facility] Not planning to have a baby in the next 12 months 11/03/2021 Last Documented On 2 7:00PM ; [facility] Heart Attack 03/2021 [facility] 1 07/09/2020 Last Documented On 1 10:59AM ; [facility] A recent immunization for flu 05/06/2020 Last Documented On 0 7:27PM ; [facility] Patient gave verbal consent for teleheal th 08/31/2019 Last Documented On 0 9:21AM ; [facility] History of abnormal electrocardiogram Last Documented On 9 2:12PM ; [facility] History of asthma 07/31/2018 Last Documented On 9 2:12PM ; [facility] History of cardiovascular disorder 07/31 Last Documented On 9 2:12PM ; [facility] History of respiratory disorder 07/31/19 19 Last Documented On 9 2:12PM ; [facility] History of bipolar disorder NOS 07/31/19 19 Last Documented On 9 2:12PM ; [facility] History of depression 07/31/2018 Last Documented On 9 2:12PM ; [facility] History of psychiatric disorders 019 Last Documented On 9 2:12PM ; [facility] Work Phone: [phone]) 663-775804-18-2023 Progress note* Progress note Date Encounter Last Documented by 09/18/2022 Medical Established Patient Last documented on 09/18/2022; 2:33 PM, Karla Clark CNP; [facility] Active Problems & Conditions - J45.909 - Asthma Occasional - Asthma - F31.9 - Bipolar Disorder Nos - Bipolar disorder, unspecified - J44.9 - Chronic Obstructive Pulmonary Disease - F32.9 - Major depressive disorder, single episode, unspecified - Depression - Schizoaffective Disorder - Z72.0 - Tobacco Use - Tobacco abuse Chief Complaint The Chief Complaint is: Patient fell coming into her home and tore her right rotator cuff and lower right arm. Patient had surgery on rotator cuff at [facility]. Referred Here Referred by emergency room. Prior encounters. History of Present Illness Gail Almeida is a 66 year old female. - Allergy list reviewed - Reviewed Medications - Medication list reviewed Presents s/p arm fracture 09/06 where she fell coming out of her apartment and tried to catch herself with the right arm. reports dr munoz would not agree to lifting her guardianship order , I explained this would not be in her best interest and I would not be able to sign it either as I dont feel she could keep up with her bills , etc Current Medication - Acetaminophen 500 MG Oral Tablet two tablets three times daily, 0 days, 0 refills - Acetaminophen ER 650 MG Oral Tablet Extended Release take 1 tablet by mouth twice daily, 30 days, 11 refills - Acidophilus Probiotic 0.5 MG Oral Tablet TAKE 1 TABLET BY MOUTH ONCE DAILY, 30 days, 11 refills - Albuterol Sulfate HFA 108 (90 Base) MCG/ACT Inhalation Aerosol Solution INHALE 1 OR 2 PUFFS EVERY 6 HOURS NEEDED FOR WHEEZING/SHORTNESS OF BREATH (may sub equivalent), 30 days, 11 refills - Amantadine HCl 100 MG Oral Capsule Take 1 tablet by mouth twice a day DR MUNOZ, 0 days, 0 refills - Benztropine Mesylate 0.5 MG Oral Tablet Take 1 tablet by mouth twice a day DR MUNOZ, 0 days, 0 refills - Calcium 600+D 600-400 MG-UNIT Oral Tablet TAKE 1 TABLET BY MOUTH TWICE A DAY, 30 days, 11 refills - cloNIDine HCl 0.1 MG Oral Tablet give one by mouth once daily, 0 days, 0 refills - Colace 100 MG Oral Capsule take 1 capsule by mouth once daily at bedtime, 30 days, 11 refills - Dulera 200-5 MCG/ACT Inhalation Aerosol INHALE 2 PUFFS BY MOUTH TWICE A DAY, 30 days, 11 refills - Famotidine 20 MG Oral Tablet TAKE 1 TABLET BY MOUTH TWICE A DAY, 30 days, 11 refills - Fluticasone Propionate 50 MCG/ACT Nasal Suspension INHALE 1 SPRAY INTO EACH NOSTRIL TWICE A DAY, 30 days, 11 refills - Folic Acid 800 MCG Oral Tablet TAKE 1 TABLET BY MOUTH ONCE EVERY DAY, 30 days, 11 refills - HYDROcodone-Acetaminophen 5-325 MG Oral Tablet 5 days, 0 refills - Moneta Carbonate 300MG Oral Tablet 300 MG take 1 tab in the AM, 1 1/2 tabs PM, 0 days, 0 refills - Loratadine 10 MG Oral Tablet take 1 tablet by mouth once daily, 30 days, 11 refills - Mobic 15 MG Oral Tablet take 1 tablet by mouth once daily (no other nsaids), 30 days, 11 refills - Polyethylene Glycol 3350 17 GM/SCOOP Oral Powder 17GM= 1CAP DISSOLVE IN 4-8 OZ LIQUID BEFORE ADMINISTRATION BY MOUTH EVERY DAY, 30 days, 11 refills - QC Vitamin B12 500 MCG Oral Tablet TAKE 1 TABLET BY MOUTH ONCE EVERY DAY ALONG WITH FOLIC ACID, 30 days, 11 refills - QUEtiapine Fumarate 300 MG Oral Tablet one table daily at bedtime give with 300mg to equal 700mg, 0 days, 0 refills - QUEtiapine Fumarate 400 MG Oral Tablet daily at bedtime, 0 days, 0 refills - RisperDAL Consta 25 MG Intramuscular Suspension Reconstituted ER inject 2 milliliters IM every 2 weeks, 0 days, 0 refills - Tessalon Perles 100 MG Oral Capsule take 1 Pill by Mouth Three Times Per Day, 30 days, 5 refills - Topiramate 25 MG Oral Tablet take 1 tablet by mouth once daily at bedtime, 30 days, 11 refills Past Medical/Surgical History Reported: Patient gave verbal consent for telehealth. Medical: Previous hospitalizations. Partners sexually transmitted infection status not known. Immunization History: Recent immunization for flu. 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 Not planning to have a baby in the next 12 months. Diagnoses: Abnormal electrocardiogram. Asthma. Bipolar disorder NOS Depression Heart Attack 03/2021 [facility]. Surgical: - Hysterectomy Social History Environmental Exposure: Secondhand cigarette smoke exposure. Tobacco use: Cigarette smoking Light (1-10/day). Not using electronic cigarettes/vaping. Sexual: Sexual orientation Straight (not lesbian or pierce) and gender identity Female. Allergies - aspirin Reaction: shock - Bactrim DS Reaction: odor - Codeine Reaction: unknown - fluoxetine Reaction: Feels weird - Metals - -No Environmental Allergies - -No Known Food Allergies - -Other Reaction: Barbiturates, and amphetamines - PENICILLINS Reaction: Turning blue - Sulfa sensitivity Reaction: odor Family History No significant medical history in nuclear family Review Of Systems Head: No head symptoms. Neck: No neck symptoms. Eyes: No eye symptoms. Otolaryngeal: No ear symptoms, no nasal symptoms, no nose and sinus finding, no throat symptoms, no oral cavity symptoms, and no jaw symptoms. Breasts: No breast symptoms. Cardiovascular: No cardiovascular symptoms and no chest pain or discomfort. Pulmonary: No pulmonary symptoms. Gastrointestinal: No gastrointestinal symptoms. Genitourinary: No genitourinary symptoms. Musculoskeletal: Pain in upper arms, upper arm bone pain, and shoulder joint pain. Neurological: No neurological symptoms. Psychological: No psychological symptoms. Skin: No skin symptoms. Cardiovascular: Edema not present. Physical Findings - Vitals taken 09/18/2022 01:57 pm BP-Sitting L142/74 mmHg BP Cuff SizeRegular Pulse Rate-Grdzraa09 bpm Temp-Skvozavh73.6 F Wejngn60 in Begjyz047 lbs 12.8 oz Body Mass Index24.9 kg/m2 Body Surface Area1.7 m2 Oxygen Vocqusfjdf28 % General Appearance: - Awake. - Alert. - Well developed. - Well nourished. - In no acute distress. Lungs: - Respiration rhythm and depth was normal. - Clear to auscultation. Cardiovascular: Heart Rate And Rhythm: - Normal. Heart Sounds: - Normal. Murmurs: - No murmurs were heard. Thrill: - No thrill. Abdomen: Visual Inspection: - Abdomen was normal on visual inspection. Musculoskeletal System: General/bilateral: - Abnormal movement of all extremities right arm in sling. Neurological: - Oriented to time, place, and person. Skin: - General appearance was normal. Assessment - Z72.0 - Tobacco use - Z68.24 - Body mass index [BMI] 24.0-24.9, adult - M79.601 - Pain in right arm Vaccinations - Received dose of Reported: Patient has received the COVID Vaccine Counseling/Education - Wishing to stop smoking Discussed Quit Line resources - Discussed nutritional needs teach healthy choices including fruits and vegetables - Patient education about a proper diet - Discussed concerns about exercise: promote physical activity Plan Continue to ice as needed and prn pain meds. Practice Management Systolic Blood Pressure > or = 140 mmHg and diastolic < 80 mmHg diastolic < 80 mmHg. Advance Directives - Advance Care Planning Health Reminders - Assess BMI satisfied 09/18/2022. - Assess Tobacco Use satisfied 09/18/2022. - Smoking & Tobacco Cessation Intervention and Counseling satisfied 09/18/2022. [facility]04-10-2023 Evaluation note* Encounter Date Diagnosis Assessment Notes Treatment Notes Treatment Clinical Notes Sep, Acute pain of right shoulder (ICD-10 - M25.511) Gail presents with right shoulder injury. Radiographs reviewed and discussed. Patient has suffered a proximal humerus fracture. We will treat this operatively with an ORIF of the right proximal humerus. CONSENT: Pt was explained risks, benefits and alternatives to surgery including but not limited to bleeding, infection, need for further surgery, scarring, wound healing issues, and nerve injury. Pt understands these risks and wishes to proceed. Sep, Other closed displaced fracture of proximal end of right humerus, initial encounter (ICD-10 - S42.291A) Gail is here today for [facility] follow-up of right shoulder fracture dislocation. Prior medical notes from [facility] have been reviewed today. Images have been reviewed and shown to the patient at bedside. Physical exam has been discussed. She has a well reduced shoulder at this point but I displaced greater tuberosity fracture. She does have good baseline function with the right arm and she is right-hand dominant. Due to the displacement of this fracture I recommended operative intervention for ORIF of the right greater tuberosity and she is agreeable to this. She should remain in sling and nonweightbearing to the right arm at this time. We will plan to get this set up to do as an outpatient. At this juncture we have discussed the findings and diagnosis as well as reviewed appropriate imaging and performed interpretation of testing. Surgical intervention is recommended. Prior medical notes and history have been reviewed. Surgical versus non-operative management have been discussed in detail and non-operative management was given as an option. The risks of surgical intervention were given. Pre-operative optimization will be done prior to surgical procedure to limit jessenia-operative risks. I have discussed the planned procedure, how and who performs the procedure, and the personnel involved. Cardiovascular, pulmonary, and other life threatening episodes can occur during surgery although there is a low risk of these happening. Surgical risks including bleeding, neurovascular injury, wound closure problems and infection were discussed. Jessenia-operative risks including infection, bleeding, wound healing problems, and need for further surgery were discussed. It was discussed that there is a possibility of blood transfusion with any surgical procedure and the risks involved in receiving a blood transfusion. Possibility of, and need for, future bracing or DME use, physical or occupational therapy, mental therapy, rehabilitation, pain management and need for secondary procedures was discussed. I have warned against smoking and the use of tobacco products due to the risks associated with them, in particular, poor healing. I have advised against the buttermaker continuous churn use of narcotic pain medication. I have advised to follow all post-operative instructions in order to obtain the best outcome. Informed consent has been verbally affirmed and signed as indicated. Plan for ORIF of right greater tuberosity. Beachchair positioning. Possible proximal humerus plate. Sep, Other See orders for this visit as documented in the electronic medical record. [employer] Other 04-06-2023 NoteEXAM: XR SHOULDER RT 1 V HISTORY: Pain ; post reduction evaluation COMPARISON: Right shoulder x-rays from same date TECHNIQUE: FINDINGS: The humeral head remains inferior to the glenoid. Stable displaced fracture of the greater tuberosity. IMPRESSION: 1. 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 Electronically authenticated by: HÉCTOR HO Date: 2022-09-06 14:58[facility]04-06-2023 NotePROCEDURE: XR HUMERUS RT MIN 2 V, XR SHOULDER RT 2V or > HISTORY: Pain and bruising of upper right arm after falling COMPARISON: None. FINDINGS: BONES:Acute fracture of the greater tuberosity with 8 mm lateral displacement. Dislocation of the humeral head from the glenoid anteriorly and inferiorly. Unremarkable acromioclavicular joint. SOFT TISSUES:No visible soft tissue swelling. EFFUSION:None visible. OTHER: Negative. IMPRESSION: 1. Acute anterior-inferior humeral head dislocation. No visible fracture of the glenoid rim. 2. Acute, displaced fracture of the greater tuberosity of the humerus. Electronically authenticated by: HÉCTOR HO Date: 2022-09-06 11:48[facility]04-06-2023 NotePROCEDURE: XR HUMERUS RT MIN 2 V, XR SHOULDER RT 2V or > HISTORY: Pain and bruising of upper right arm after falling COMPARISON: None. FINDINGS: BONES:Acute fracture of the greater tuberosity with 8 mm lateral displacement. Dislocation of the humeral head from the glenoid anteriorly and inferiorly. Unremarkable acromioclavicular joint. SOFT TISSUES:No visible soft tissue swelling. EFFUSION:None visible. OTHER: Negative. IMPRESSION: 1. Acute anterior-inferior humeral head dislocation. No visible fracture of the glenoid rim. 2. Acute, displaced fracture of the greater tuberosity of the humerus. Electronically authenticated by: HÉCTOR HO Date: 2022-09-06 11:48[facility]03-27-2023 Progress note* Progress note Date Encounter Last Documented by 08/27/2022 Chart Update Last documented on 08/27/2022; 8:57 AM, Carolin ATWOOD; [facility] Active Problems & Conditions - J45.909 - Asthma Occasional - Asthma - F31.9 - Bipolar Disorder Nos - Bipolar disorder, unspecified - J44.9 - Chronic Obstructive Pulmonary Disease - F32.9 - Major depressive disorder, single episode, unspecified - Depression - Schizoaffective Disorder - Z72.0 - Tobacco Use - Tobacco abuse Current Medication - Acetaminophen ER 650 MG Oral Tablet Extended Release take 1 tablet by mouth twice daily, 30 days, 11 refills - Acidophilus Probiotic 0.5 MG Oral Tablet TAKE 1 TABLET BY MOUTH ONCE DAILY, 30 days, 11 refills - Albuterol Sulfate HFA 108 (90 Base) MCG/ACT Inhalation Aerosol Solution INHALE 1 OR 2 PUFFS EVERY 6 HOURS NEEDED FOR WHEEZING/SHORTNESS OF BREATH (may sub equivalent), 30 days, 11 refills - Amantadine HCl 100 MG Oral Capsule Take 1 tablet by mouth twice a day DR MUNOZ, 0 days, 0 refills - Benztropine Mesylate 0.5 MG Oral Tablet Take 1 tablet by mouth twice a day DR MUNOZ, 0 days, 0 refills - Calcium 600+D 600-400 MG-UNIT Oral Tablet TAKE 1 TABLET BY MOUTH TWICE A DAY, 30 days, 11 refills - cloNIDine HCl 0.1 MG Oral Tablet give one by mouth once daily, 0 days, 0 refills - Colace 100 MG Oral Capsule take 1 capsule by mouth once daily at bedtime, 30 days, 11 refills - Dulera 200-5 MCG/ACT Inhalation Aerosol INHALE 2 PUFFS BY MOUTH TWICE A DAY, 30 days, 11 refills - Famotidine 20 MG Oral Tablet TAKE 1 TABLET BY MOUTH TWICE A DAY, 30 days, 11 refills - Fluticasone Propionate 50 MCG/ACT Nasal Suspension INHALE 1 SPRAY INTO EACH NOSTRIL TWICE A DAY, 30 days, 11 refills - Folic Acid 800 MCG Oral Tablet TAKE 1 TABLET BY MOUTH ONCE EVERY DAY, 30 days, 11 refills - Folic Acid 800 MCG Oral Tablet TAKE 1 TABLET BY MOUTH ONCE EVERY DAY, 30 days, 11 refills - Moneta Carbonate 300MG Oral Tablet 300 MG take 1 tab in the AM, 1 1/2 tabs PM, 0 days, 0 refills - Loratadine 10 MG Oral Tablet take 1 tablet by mouth once daily, 30 days, 11 refills - Mobic 15 MG Oral Tablet take 1 tablet by mouth once daily (no other nsaids), 30 days, 11 refills - Polyethylene Glycol 3350 17 GM/SCOOP Oral Powder 17GM= 1CAP DISSOLVE IN 4-8 OZ LIQUID BEFORE ADMINISTRATION BY MOUTH EVERY DAY, 30 days, 11 refills - QC Vitamin B12 500 MCG Oral Tablet TAKE 1 TABLET BY MOUTH ONCE EVERY DAY ALONG WITH FOLIC ACID, 30 days, 11 refills - QUEtiapine Fumarate 300 MG Oral Tablet one table daily at bedtime give with 300mg to equal 700mg, 0 days, 0 refills - QUEtiapine Fumarate 400 MG Oral Tablet daily at bedtime, 0 days, 0 refills - RisperDAL Consta 25 MG Intramuscular Suspension Reconstituted ER inject 2 milliliters IM every 2 weeks, 0 days, 0 refills - Tessalon Perles 100 MG Oral Capsule take 1 Pill by Mouth Three Times Per Day, 30 days, 5 refills - Topiramate 25 MG Oral Tablet take 1 tablet by mouth once daily at bedtime, 30 days, 11 refills Therapy - SBIRT Screen Neg. - SBIRT Full Screen Neg. Advance Directives - Advance Care Planning Health Reminders - SBIRT satisfied 08/27/2022. User Defined 1 She has not had 4 or more drinks in a day within the past year., no misuse of prescription only drugs, and not illicit. Little interest or pleasure in doing things in the last 2 weeks? 0 pt Not at all, Feeling down, depressed, or hopeless in the last 2 weeks? 0 pt Not at all, and [PHQ-2] Patient Health Questionnaire 2 item total score: 0 pts (Scale: 0-6) PHQ2. [facility]03-27-2023 Progress note* Progress note Date Encounter Last Documented by 08/27/2022 Medical Established Patient Last documented on 08/27/2022; 9:20 AM, Karla Clark CNP; [facility] Active Problems & Conditions - J45.909 - Asthma Occasional - Asthma - F31.9 - Bipolar Disorder Nos - Bipolar disorder, unspecified - J44.9 - Chronic Obstructive Pulmonary Disease - F32.9 - Major depressive disorder, single episode, unspecified - Depression - Schizoaffective Disorder - Z72.0 - Tobacco Use - Tobacco abuse Chief Complaint The Chief Complaint is: Right knee pain. Referred Here No prior encounters. History of Present Illness Gail Almeida is a 66 year old female. - Allergy list reviewed - Reviewed Medications no longer taking prednisone - Medication list reviewed Presents for wellness and to f/u on mobic , reports her knee feels much better now ! pt brought paperwork she wanted signed to stop guardianship , I advised that since its mental health reasons she has guardian that psych should sign , she reports that Dr Munoz wants to have me do it , I dont feel this is appropriate and would really need determined by psych if its to be reversed Gail is here for right knee pain. She states it has gotten better with mobic. Only times it bothers her is when it rains. She thinks her left ear might need to be cleaned out. She thinks she may have a wax build up. She thinks she has some anxiety going on. She states her chest feels heavy. Rash on her neck, ? detergent Current Medication - Acetaminophen ER 650 MG Oral Tablet Extended Release take 1 tablet by mouth twice daily, 30 days, 11 refills - Acidophilus Probiotic 0.5 MG Oral Tablet TAKE 1 TABLET BY MOUTH ONCE DAILY, 30 days, 11 refills - Albuterol Sulfate HFA 108 (90 Base) MCG/ACT Inhalation Aerosol Solution INHALE 1 OR 2 PUFFS EVERY 6 HOURS NEEDED FOR WHEEZING/SHORTNESS OF BREATH (may sub equivalent), 30 days, 11 refills - Amantadine HCl 100 MG Oral Capsule Take 1 tablet by mouth twice a day DR MUNOZ, 0 days, 0 refills - Benztropine Mesylate 0.5 MG Oral Tablet Take 1 tablet by mouth twice a day DR MUNOZ, 0 days, 0 refills - Calcium 600+D 600-400 MG-UNIT Oral Tablet TAKE 1 TABLET BY MOUTH TWICE A DAY, 30 days, 11 refills - cloNIDine HCl 0.1 MG Oral Tablet give one by mouth once daily, 0 days, 0 refills - Colace 100 MG Oral Capsule take 1 capsule by mouth once daily at bedtime, 30 days, 11 refills - Dulera 200-5 MCG/ACT Inhalation Aerosol INHALE 2 PUFFS BY MOUTH TWICE A DAY, 30 days, 11 refills - Famotidine 20 MG Oral Tablet TAKE 1 TABLET BY MOUTH TWICE A DAY, 30 days, 11 refills - Fluticasone Propionate 50 MCG/ACT Nasal Suspension INHALE 1 SPRAY INTO EACH NOSTRIL TWICE A DAY, 30 days, 11 refills - Folic Acid 800 MCG Oral Tablet TAKE 1 TABLET BY MOUTH ONCE EVERY DAY, 30 days, 11 refills - Moneta Carbonate 300MG Oral Tablet 300 MG take 1 tab in the AM, 1 1/2 tabs PM, 0 days, 0 refills - Loratadine 10 MG Oral Tablet take 1 tablet by mouth once daily, 30 days, 11 refills - Mobic 15 MG Oral Tablet take 1 tablet by mouth once daily (no other nsaids), 30 days, 11 refills - Polyethylene Glycol 3350 17 GM/SCOOP Oral Powder 17GM= 1CAP DISSOLVE IN 4-8 OZ LIQUID BEFORE ADMINISTRATION BY MOUTH EVERY DAY, 30 days, 11 refills - QC Vitamin B12 500 MCG Oral Tablet TAKE 1 TABLET BY MOUTH ONCE EVERY DAY ALONG WITH FOLIC ACID, 30 days, 11 refills - QUEtiapine Fumarate 300 MG Oral Tablet one table daily at bedtime give with 300mg to equal 700mg, 0 days, 0 refills - QUEtiapine Fumarate 400 MG Oral Tablet daily at bedtime, 0 days, 0 refills - RisperDAL Consta 25 MG Intramuscular Suspension Reconstituted ER inject 2 milliliters IM every 2 weeks, 0 days, 0 refills - Tessalon Perles 100 MG Oral Capsule take 1 Pill by Mouth Three Times Per Day, 30 days, 5 refills - Topiramate 25 MG Oral Tablet take 1 tablet by mouth once daily at bedtime, 30 days, 11 refills Past Medical/Surgical History Reported: Patient gave verbal consent for telehealth. Medical: No previous hospitalizations. Partners sexually transmitted infection status not known. 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 Not planning to have a baby in the next 12 months. Diagnoses: Abnormal electrocardiogram. Asthma. Bipolar disorder NOS Depression Heart Attack 03/2021 [facility]. Surgical: - Hysterectomy Social History Environmental Exposure: No secondhand cigarette smoke exposure. Tobacco use: Cigarette smoking light: Patient smokes 1-10 cigarettes per day. Not using electronic cigarettes/vaping. Sexual: Sexual orientation Straight (not lesbian or pierce) and gender identity Female. Allergies - aspirin Reaction: shock - Bactrim DS Reaction: odor - Codeine Reaction: unknown - fluoxetine Reaction: Feels weird - Metals - -No Environmental Allergies - -No Known Food Allergies - -Other Reaction: Barbiturates, and amphetamines - PENICILLINS Reaction: Turning blue - Sulfa sensitivity Reaction: odor Family History No significant medical history in nuclear family Review Of Systems Head: No head symptoms. Neck: No neck symptoms. Eyes: No eye symptoms. Otolaryngeal: No ear symptoms, no nasal symptoms, no nose and sinus finding, no throat symptoms, no oral cavity symptoms, and no jaw symptoms. Breasts: No breast symptoms. Cardiovascular: No cardiovascular symptoms and no chest pain or discomfort. Pulmonary: No pulmonary symptoms. Gastrointestinal: No gastrointestinal symptoms. Genitourinary: No genitourinary symptoms. Musculoskeletal: No musculoskeletal symptoms. Neurological: No neurological symptoms. Psychological: No psychological symptoms. Skin: No skin symptoms. Cardiovascular: Edema not present. Physical Findings - Vitals taken 08/27/2022 08:26 am BP-Sitting L115/73 mmHg BP Cuff SizeRegular Pulse Rate-Eslgtgg18 bpm Temp-Bopfpdgo89 F Qnnnja04 in Pqhcrs398 lbs 9.6 oz Body Mass Index24.6 kg/m2 Body Surface Area1.7 m2 Oxygen Ckdqjnklsa41 % General Appearance: - Appears distressed. - Awake. - Alert. - Well developed. - Well nourished. Head: Appearance: - Head normocephalic. Scar: - No scar on the head. Scalp: - Normal. Skull Tenderness: - No skull tenderness. Crepitus: - Head showed no crepitus. Temporal Arteries: - Normal. Neck: Appearance: - Of the neck was normal. Palpation: - Of the neck revealed no abnormalities. Suppleness: - Neck demonstrated no decrease in suppleness. Maneuvers: - Neck maneuvers elicited no abnormal responses. Weakness: - No neck weakness was seen. Thyroid: - Had a mass neck mass as previous , has had sugery. - Not diffusely enlarged. Cervical Mass: - No cervical mass was seen. Scar: - No surgical/traumatic scar was seen on the neck. Eyes: General/bilateral: Extraocular Movements: - Normal. Pupils: - PERRLA. - Size of the pupil was normal. - Reactive to light. - Showed normal accommodation. - No abnormal pupil function. External: - Eyelids showed no abnormalities. Sclera: - Not red. Ears: General/bilateral: Outer Ear: - Normal. Tympanic Membrane: - Examined. Hearing: - No hearing abnormalities. Right Ear: - Examined. Left Ear: - Examined. Nose: General/bilateral: Discharge: - No nasal discharge. Nasal Malformation: - No nasal malformation. External Deformities: - No external nose deformities. External Mass: - No external nasal mass. Piercings: - Nose was not pierced. Cavity: - No nasal cavity abnormalities. Nasal Erythema: - No nasal erythema was noted. Nasal Edema: - No nasal edema was noted. Nasal Bone Tenderness: - No nasal bone tenderness. Sinus Tenderness: - No sinus tenderness. Oral Cavity: - Odor of breath was normal. Lips: - Showed no abnormalities. Frenum Attachment: - Showed no abnormalities. Gums: - Examination showed no abnormalities. Teeth: - Dental no abnormalities. Buccal Mucosa: - Showed no mucosal abnormalities. Tongue: - Examination showed no abnormalities. Salivary Glands: - No salivary calculus was found. - Sublingual glands were not tender. - Sublingual glands were not swollen. - Sublingual glands did not have erythematous overlying mucosa. Palate: - Hard palate was normal. - Not cleft. - Showed no mucosal abnormalities. Pharynx: Nasopharynx: - Normal. Oropharynx: - Normal. Hypopharynx: - Normal. Mucosal: - Pharynx had no mucosal abnormalities. Lungs: - Respiration rhythm and depth was normal. Cardiovascular: Heart Rate And Rhythm: - Normal. Heart Sounds: - Normal. Murmurs: - No murmurs were heard. Thrill: - No thrill. Abdomen: Visual Inspection: - Abdomen was normal on visual inspection. Musculoskeletal System: General/bilateral: - Normal movement of all extremities. Neurological: - Oriented to time, place, and person. Skin: - General appearance was normal. Assessment - Z00.00 - Encounter for general adult medical examination without abnormal findings - Z68.24 - Body mass index [BMI] 24.0-24.9, adult - M25.569 - Pain in unspecified knee - F17.200 - Nicotine dependence, unspecified, uncomplicated - Intervention and counseling on cessation of tobacco use, 3-10 minutes Discussed medication and nicotine replacement for tobacco cessation Therapy - Patient refused flu vaccine. Discussed benefits of flu vaccine with Patient. Vaccinations - Did not receive dose of Reported: Patient has not received the Covid Vaccine Counseling/Education - Wishing to stop smoking Discussed Quit Line resources - Discussed nutritional needs teach healthy choices including fruits and vegetables - Patient education about a proper diet - Discussed concerns about exercise: promote physical activity Plan StartCited- Encntr for general adult medical exam w/o abnormal findings Lab: CBC WITH DIFF Lab: COMP MET PROF TABOR Lab: LIPID PROFILE Lab: TSH W/REFLEX TO FT4 EndCited StartCited- Other Follow-up Appointment 6 month check up Folic Acid 800 MCG tablet TAKE 1 TABLET BY MOUTH ONCE EVERY DAY, 30 days, 11 refills EndCited Practice Management Systolic blood pressure < 130 mmHg and diastolic < 80 mmHg diastolic < 80 mmHg. Advance Directives - Advance Care Planning Health Reminders - Assess BMI satisfied 08/27/2022. - Assess Tobacco Use satisfied 08/27/2022. - Smoking & Tobacco Cessation Intervention and Counseling satisfied 08/27/2022. [facility]03-27-2023 Instructions Includes: Instructions for all patient encounters Instructions to patient Intervention and counseling on cessation of tobacco use, 3-10 minutes Discussed medication and nicotine replacement for tobacco cessation Last Documented On 3 8:54AM ; [facility] Intervention and counseling on cessation of tobacco use, 3-10 minutes Discussed medication and nicotine replacement for tobacco cessation Last Documented On 2 1:56PM ; [facility] Intervention and counseling on cessation of tobacco use, 3-10 minutes Last Documented On 0 2:07PM ; [facility] Return to the clinic if cond ition worsens or new symptoms arise Last Documented On 9 1:59PM ; [facility] Intervention and counseling on cessation of tobacco use, 3-10 minutes Last Documented On 9 10:39AM ; [facility] Education and Decision Aids were provided during visit for: Discussed nutritional needs teach healthy choices including fruits and vegetables Last Documented On 3 9:37AM ; [facility] Patient education about a pr oper diet Last Documented On 3 9:37AM ; [facility] Discussed concerns about exe rcise : promote physical activity Last Documented On 3 9:37AM ; [facility] Not requesting contraception Last Documented On 3 9:37AM ; [facility] Discussed nutritional needs teach healthy choices including fruits and vegetables Last Documented On 3 9:20AM ; [facility] Patient education about a pr oper diet Last Documented On 3 9:20AM ; [facility] Discussed concerns about exe rcise : promote physical activity Last Documented On 3 9:20AM ; [facility] Discussed nutritional needs teach healthy choices including fruits and vegetables Last Documented On 3 2:02PM ; [facility] Patient education about a pr oper diet Last Documented On 3 2:02PM ; [facility] Discussed concerns about exe rcise : promote physical activity Last Documented On 3 2:02PM ; [facility] Discussed nutritional needs teach healthy choices including fruits and vegetables Last Documented On 3 8:32AM ; [facility] Patient education about a pr oper diet Last Documented On 3 8:32AM ; [facility] Discussed concerns about exe rcise : promote physical activity Last Documented On 3 8:32AM ; [facility] Discussed nutritional needs teach healthy choices including fruits and vegetables Last Documented On 3 11:28AM ; [facility] Patient education about a pr oper diet Last Documented On 3 11:28AM ; [facility] Discussed concerns about exe rcise : promote physical activity Last Documented On 3 11:28AM ; [facility] Discussed nutritional needs teach healthy choices including fruits and vegetables Last Documented On 2 2:01PM ; [facility] Patient education about a pr oper diet Last Documented On 2 2:01PM ; [facility] Discussed concerns about exe rcise : promote physical activity Last Documented On 2 2:01PM ; [facility] Discussed nutritional needs teach healthy choices including fruits and vegetables Last Documented On 2 2:11PM ; [facility] Patient education about a pr oper diet Last Documented On 2 2:11PM ; [facility] Discussed concerns about exe rcise : promote physical activity Last Documented On 2 2:11PM ; [facility] Discussed current self-care methods/coping skills. ~Validated and normalized pt's feelings while assisting patient process recent events. ~Discussed ongoing counseling. ~Discussed lifestyle changes to address chronic illness. ~Supported patient's personal health goals ~wordfinds. walk, read, eat, enjoy my best friesnd Last Documented On 2 5:54PM ; [facility] Discussed nutritional needs teach healthy choices including fruits and vegetables Last Documented On 2 10:04AM ; [facility] Patient education about a pr oper diet Last Documented On 2 10:04AM ; [facility] Discussed concerns about exe rcise : promote physical activity Last Documented On 2 10:04AM ; [facility] Discussed nutritional needs teach healthy choices including fruits and vegetables Last Documented On 2 1:25PM ; [facility] Patient education about a pr oper diet Last Documented On 2 1:25PM ; [facility] Discussed concerns about exe rcise : promote physical activity Last Documented On 2 1:25PM ; [facility] Discussed nutritional needs teach healthy choices including fruits and vegetables Last Documented On 1 10:08AM ; [facility] Patient education about a pr oper diet Last Documented On 1 10:08AM ; [facility] Discussed concerns about exe rcise : promote physical activity Last Documented On 1 10:08AM ; [facility] Discussed nutritional needs teach healthy choices including fruits and vegetables Last Documented On 1 1:12PM ; [facility] Patient education about a pr oper diet Last Documented On 1 1:12PM ; [facility] Patient education about a pr oper diet Last Documented On 1 1:30PM ; [facility] Patient education about meal planning Last Documented On 1 1:30PM ; [facility] Education about changing eat ing habits Last Documented On 1 1:30PM ; [facility] Patient education about high fiber diet Last Documented On 1 1:30PM ; [facility] Patient education about low fat diet Last Documented On 1 1:30PM ; [facility] Patient education about low cholesterol diet Last Documented On 1 1:30PM ; [facility] Patient education about low carbohydrate diet Last Documented On 1 1:30PM ; [facility] Patient education about high protein diet Last Documented On 1 1:30PM ; [facility] Discussed concerns about exe rcise : promote physical activity Last Documented On 1 1:12PM ; [facility] Education/counseling conduct ed by pharmacist Last Documented On 0 1:39PM ; [facility] Vaccination counseling Last Documented On 0 1:39PM ; [facility] Discussed concerns about exe rcise : promote physical activity Last Documented On 0 2:16PM ; [facility] Patient goals decrease short ness of breath episodes Last Documented On 0 2:11PM ; [facility] Patient states that she uses her rescue inhaler maybe 2 times a month. States that she is in today because other people told her that she has shortness of breath. ~ ~States that she uses her dulera 1 puff by mouth twice a day (uses spacer with inhaler). ~ ~Spirometry was done today with some difficulty during test. Spirometry showed mild restriction. ~ ~Counseled patient on the importance of adherence to inhalers and use of spacer. Patient states that she hears a whistle from time to time when using spacer. Counseled patient that spacer noise can be due to breathing in too fast. ~ ~Possible Raynauds Syndrome due to middle left finger tip turning blue. States this happens every winter. Counseled patient on making sure she wears gloves and to keep her fingers warm. ~ ~Blood pressure well controlled today at 116/70. Previous elevated blood pressures have been due to patient smoking prior to appointment per patient. Counseled on the importance of quitting and for her to reach out to us when she is ready to quit. ~ ~States recently received flu and pneumonia vaccine recently Last Documented On 0 2:24PM ; [facility] Patient education about a pr oper diet Last Documented On 0 2:54PM ; [facility] Patient education about meal planning Last Documented On 0 2:54PM ; [facility] Education about changing eat ing habits Last Documented On 0 2:54PM ; [facility] Patient education about high fiber diet Last Documented On 0 2:54PM ; [facility] Patient education about low fat diet Last Documented On 0 2:54PM ; [facility] Patient education about low cholesterol diet Last Documented On 0 2:54PM ; [facility] Patient education about low carbohydrate diet Last Documented On 0 2:54PM ; [facility] Patient education about high protein diet Last Documented On 0 2:54PM ; [facility] Discussed nutritional needs teach healthy choices including fruits and vegetables Last Documented On 0 11:11AM ; [facility] Patient education about a pr oper diet Last Documented On 0 11:11AM ; [facility] Patient education about a pr oper diet Last Documented On 0 11:28AM ; [facility] Patient education about meal planning Last Documented On 0 11:28AM ; [facility] Education about changing eat ing habits Last Documented On 0 11:28AM ; [facility] Patient education about high fiber diet Last Documented On 0 11:28AM ; [facility] Patient education about low fat diet Last Documented On 0 11:28AM ; [facility] Patient education about low cholesterol diet Last Documented On 0 11:28AM ; [facility] Patient education about low carbohydrate diet Last Documented On 0 11:28AM ; [facility] Patient education about high protein diet Last Documented On 0 11:28AM ; [facility] Discussed concerns about exe rcise : promote physical activity Last Documented On 0 11:11AM ; [facility] Education/counseling conduct ed by pharmacist Last Documented On 0 1:41PM ; [facility] Patient states that she lonnie gonzalez has issues using inhaler. Patient brought in inhaler to appt. Rarely uses her rescue inhaler, may use it every 3-4 months ~ ~Performed technique where the spacer whistled. Patient was shown video on proper inhalation technique and patient repeated steps. Patient is to not blow in the spacer but to breath in medication from the spacer. ~ ~Had questions on how to use nasal spray and eye ointment. Patient was counseled on how to use. ~ ~Interested in switching omeprazole to famotidine or rantidine. Please follow up at next scheduled visit. ~ ~She has cut down her smoking to 3 cigarettes a day and will be cutting down smoking on her own Last Documented On 0 2:08PM ; [facility] Education/counseling conduct ed by pharmacist Last Documented On 9 1:12PM ; [facility] Patient states that she lonnie gonzalez has issues with her inhaler with the spacer. Patient did not bring in inhaler or spacer. Patient was told to bring in inhalers at next scheduled visit for pharmacist to assess inhalation technique. Patient is agreeable Last Documented On 9 1:13PM ; [facility] Patient goals Start using ch deon to help with inhaling dulera Last Documented On 9 2:40PM ; [facility] Patient states that she is g etting frustrated with inhaler use and nasal spray. ~ ~Patient performed correct technique in office but she is still frustrated. Provided patient with education sheet on how to use inhalers. Patient is interested in using spacer to help with dulera administration. ~ ~Cut down smoking from 4-6 cigarettes to 2 cigarettes cold turkey. ~ ~Recommended flu and pneumonia vaccine but denied at this time. Counseled on the importance of vaccines Last Documented On 9 2:51PM ; [facility] Discussed nutritional needs teach healthy choices including fruits and vegetables Last Documented On 9 9:29AM ; [facility] Patient education about a pr oper diet Last Documented On 9 9:29AM ; [facility] Discussed concerns about exe rcise : promote physical activity Last Documented On 9 9:29AM ; [facility] Work Phone: [phone] 183-619403-27-2023 Instructions Includes: Instructions for all patient encounters Instructions to patient Intervention and counseling on cessation of tobacco use, 3-10 minutes Discussed medication and nicotine replacement for tobacco cessation Last Documented On 3 8:54AM ; [facility] Intervention and counseling on cessation of tobacco use, 3-10 minutes Discussed medication and nicotine replacement for tobacco cessation Last Documented On 2 1:56PM ; [facility] Intervention and counseling on cessation of tobacco use, 3-10 minutes Last Documented On 0 2:07PM ; [facility] Return to the clinic if cond ition worsens or new symptoms arise Last Documented On 9 1:59PM ; [facility] Intervention and counseling on cessation of tobacco use, 3-10 minutes Last Documented On 9 10:39AM ; [facility] Education and Decision Aids were provided during visit for: Discussed nutritional needs teach healthy choices including fruits and vegetables Last Documented On 3 8:32AM ; [facility] Patient education about a pr oper diet Last Documented On 3 8:32AM ; [facility] Discussed concerns about exe rcise : promote physical activity Last Documented On 3 8:32AM ; [facility] Discussed nutritional needs teach healthy choices including fruits and vegetables Last Documented On 3 11:28AM ; [facility] Patient education about a pr oper diet Last Documented On 3 11:28AM ; [facility] Discussed concerns about exe rcise : promote physical activity Last Documented On 3 11:28AM ; [facility] Discussed nutritional needs teach healthy choices including fruits and vegetables Last Documented On 2 2:01PM ; [facility] Patient education about a pr oper diet Last Documented On 2 2:01PM ; [facility] Discussed concerns about exe rcise : promote physical activity Last Documented On 2 2:01PM ; [facility] Discussed nutritional needs teach healthy choices including fruits and vegetables Last Documented On 2 2:11PM ; [facility] Patient education about a pr oper diet Last Documented On 2 2:11PM ; [facility] Discussed concerns about exe rcise : promote physical activity Last Documented On 2 2:11PM ; [facility] Discussed current self-care methods/coping skills. ~Validated and normalized pt's feelings while assisting patient process recent events. ~Discussed ongoing counseling. ~Discussed lifestyle changes to address chronic illness. ~Supported patient's personal health goals ~wordfinds. walk, read, eat, enjoy my best friesnd Last Documented On 2 5:54PM ; [facility] Discussed nutritional needs teach healthy choices including fruits and vegetables Last Documented On 2 10:04AM ; [facility] Patient education about a pr oper diet Last Documented On 2 10:04AM ; [facility] Discussed concerns about exe rcise : promote physical activity Last Documented On 2 10:04AM ; [facility] Discussed nutritional needs teach healthy choices including fruits and vegetables Last Documented On 2 1:25PM ; [facility] Patient education about a pr oper diet Last Documented On 2 1:25PM ; [facility] Discussed concerns about exe rcise : promote physical activity Last Documented On 2 1:25PM ; [facility] Discussed nutritional needs teach healthy choices including fruits and vegetables Last Documented On 1 10:08AM ; [facility] Patient education about a pr oper diet Last Documented On 1 10:08AM ; [facility] Discussed concerns about exe rcise : promote physical activity Last Documented On 1 10:08AM ; [facility] Discussed nutritional needs teach healthy choices including fruits and vegetables Last Documented On 1 1:12PM ; [facility] Patient education about a pr oper diet Last Documented On 1 1:12PM ; [facility] Patient education about a pr oper diet Last Documented On 1 1:30PM ; [facility] Patient education about meal planning Last Documented On 1 1:30PM ; [facility] Education about changing eat ing habits Last Documented On 1 1:30PM ; [facility] Patient education about high fiber diet Last Documented On 1 1:30PM ; [facility] Patient education about low fat diet Last Documented On 1 1:30PM ; [facility] Patient education about low cholesterol diet Last Documented On 1 1:30PM ; [facility] Patient education about low carbohydrate diet Last Documented On 1 1:30PM ; [facility] Patient education about high protein diet Last Documented On 1 1:30PM ; [facility] Discussed concerns about exe rcise : promote physical activity Last Documented On 1 1:12PM ; [facility] Education/counseling conduct ed by pharmacist Last Documented On 0 1:39PM ; [facility] Vaccination counseling Last Documented On 0 1:39PM ; [facility] Discussed concerns about exe rcise : promote physical activity Last Documented On 0 2:16PM ; [facility] Patient goals decrease short ness of breath episodes Last Documented On 0 2:11PM ; [facility] Patient states that she uses her rescue inhaler maybe 2 times a month. States that she is in today because other people told her that she has shortness of breath. ~ ~States that she uses her dulera 1 puff by mouth twice a day (uses spacer with inhaler). ~ ~Spirometry was done today with some difficulty during test. Spirometry showed mild restriction. ~ ~Counseled patient on the importance of adherence to inhalers and use of spacer. Patient states that she hears a whistle from time to time when using spacer. Counseled patient that spacer noise can be due to breathing in too fast. ~ ~Possible Raynauds Syndrome due to middle left finger tip turning blue. States this happens every winter. Counseled patient on making sure she wears gloves and to keep her fingers warm. ~ ~Blood pressure well controlled today at 116/70. Previous elevated blood pressures have been due to patient smoking prior to appointment per patient. Counseled on the importance of quitting and for her to reach out to us when she is ready to quit. ~ ~States recently received flu and pneumonia vaccine recently Last Documented On 0 2:24PM ; [facility] Patient education about a pr oper diet Last Documented On 0 2:54PM ; [facility] Patient education about meal planning Last Documented On 0 2:54PM ; [facility] Education about changing eat ing habits Last Documented On 0 2:54PM ; [facility] Patient education about high fiber diet Last Documented On 0 2:54PM ; [facility] Patient education about low fat diet Last Documented On 0 2:54PM ; [facility] Patient education about low cholesterol diet Last Documented On 0 2:54PM ; [facility] Patient education about low carbohydrate diet Last Documented On 0 2:54PM ; [facility] Patient education about high protein diet Last Documented On 0 2:54PM ; [facility] Discussed nutritional needs teach healthy choices including fruits and vegetables Last Documented On 0 11:11AM ; [facility] Patient education about a pr oper diet Last Documented On 0 11:11AM ; [facility] Patient education about a pr oper diet Last Documented On 0 11:28AM ; [facility] Patient education about meal planning Last Documented On 0 11:28AM ; [facility] Education about changing eat ing habits Last Documented On 0 11:28AM ; [facility] Patient education about high fiber diet Last Documented On 0 11:28AM ; [facility] Patient education about low fat diet Last Documented On 0 11:28AM ; [facility] Patient education about low cholesterol diet Last Documented On 0 11:28AM ; [facility] Patient education about low carbohydrate diet Last Documented On 0 11:28AM ; [facility] Patient education about high protein diet Last Documented On 0 11:28AM ; [facility] Discussed concerns about exe rcise : promote physical activity Last Documented On 0 11:11AM ; [facility] Education/counseling conduct ed by pharmacist Last Documented On 0 1:41PM ; [facility] Patient states that she lonnie gonzalez has issues using inhaler. Patient brought in inhaler to appt. Rarely uses her rescue inhaler, may use it every 3-4 months ~ ~Performed technique where the spacer whistled. Patient was shown video on proper inhalation technique and patient repeated steps. Patient is to not blow in the spacer but to breath in medication from the spacer. ~ ~Had questions on how to use nasal spray and eye ointment. Patient was counseled on how to use. ~ ~Interested in switching omeprazole to famotidine or rantidine. Please follow up at next scheduled visit. ~ ~She has cut down her smoking to 3 cigarettes a day and will be cutting down smoking on her own Last Documented On 0 2:08PM ; [facility] Education/counseling conduct ed by pharmacist Last Documented On 9 1:12PM ; [facility] Patient states that she lonnie gonzalez has issues with her inhaler with the spacer. Patient did not bring in inhaler or spacer. Patient was told to bring in inhalers at next scheduled visit for pharmacist to assess inhalation technique. Patient is agreeable Last Documented On 9 1:13PM ; [facility] Patient goals Start using ch deon to help with inhaling dulera Last Documented On 9 2:40PM ; [facility] Patient states that she is g etting frustrated with inhaler use and nasal spray. ~ ~Patient performed correct technique in office but she is still frustrated. Provided patient with education sheet on how to use inhalers. Patient is interested in using spacer to help with dulera administration. ~ ~Cut down smoking from 4-6 cigarettes to 2 cigarettes cold turkey. ~ ~Recommended flu and pneumonia vaccine but denied at this time. Counseled on the importance of vaccines Last Documented On 9 2:51PM ; [facility] Discussed nutritional needs teach healthy choices including fruits and vegetables Last Documented On 9 9:29AM ; [facility] Patient education about a pr oper diet Last Documented On 9 9:29AM ; [facility] Discussed concerns about exe rcise : promote physical activity Last Documented On 9 9:29AM ; [facility] Work Phone: [phone] Instructions Includes: Instructions for all patient encounters Instructions to patient Intervention and counseling on cessation of tobacco use, 3-10 minutes Discussed medication and nicotine replacement for tobacco cessation Last Documented On 3 8:54AM ; [facility] Intervention and counseling on cessation of tobacco use, 3-10 minutes Discussed medication and nicotine replacement for tobacco cessation Last Documented On 2 1:56PM ; [facility] Intervention and counseling on cessation of tobacco use, 3-10 minutes Last Documented On 0 2:07PM ; [facility] Return to the clinic if cond ition worsens or new symptoms arise Last Documented On 9 1:59PM ; [facility] Intervention and counseling on cessation of tobacco use, 3-10 minutes Last Documented On 9 10:39AM ; [facility] Education and Decision Aids were provided during visit for: Discussed nutritional needs teach healthy choices including fruits and vegetables Last Documented On 3 8:32AM ; [facility] Patient education about a pr oper diet Last Documented On 3 8:32AM ; [facility] Discussed concerns about exe rcise : promote physical activity Last Documented On 3 8:32AM ; [facility] Discussed nutritional needs teach healthy choices including fruits and vegetables Last Documented On 3 11:28AM ; [facility] Patient education about a pr oper diet Last Documented On 3 11:28AM ; [facility] Discussed concerns about exe rcise : promote physical activity Last Documented On 3 11:28AM ; [facility] Discussed nutritional needs teach healthy choices including fruits and vegetables Last Documented On 2 2:01PM ; [facility] Patient education about a pr oper diet Last Documented On 2 2:01PM ; [facility] Discussed concerns about exe rcise : promote physical activity Last Documented On 2 2:01PM ; [facility] Discussed nutritional needs teach healthy choices including fruits and vegetables Last Documented On 2 2:11PM ; [facility] Patient education about a pr oper diet Last Documented On 2 2:11PM ; [facility] Discussed concerns about exe rcise : promote physical activity Last Documented On 2 2:11PM ; [facility] Discussed current self-care methods/coping skills. ~Validated and normalized pt's feelings while assisting patient process recent events. ~Discussed ongoing counseling. ~Discussed lifestyle changes to address chronic illness. ~Supported patient's personal health goals ~wordfinds. walk, read, eat, enjoy my best friesnd Last Documented On 2 5:54PM ; [facility] Discussed nutritional needs teach healthy choices including fruits and vegetables Last Documented On 2 10:04AM ; [facility] Patient education about a pr oper diet Last Documented On 2 10:04AM ; [facility] Discussed concerns about exe rcise : promote physical activity Last Documented On 2 10:04AM ; [facility] Discussed nutritional needs teach healthy choices including fruits and vegetables Last Documented On 2 1:25PM ; [facility] Patient education about a pr oper diet Last Documented On 2 1:25PM ; [facility] Discussed concerns about exe rcise : promote physical activity Last Documented On 2 1:25PM ; [facility] Discussed nutritional needs teach healthy choices including fruits and vegetables Last Documented On 1 10:08AM ; [facility] Patient education about a pr oper diet Last Documented On 1 10:08AM ; [facility] Discussed concerns about exe rcise : promote physical activity Last Documented On 1 10:08AM ; [facility] Discussed nutritional needs teach healthy choices including fruits and vegetables Last Documented On 1 1:12PM ; [facility] Patient education about a pr oper diet Last Documented On 1 1:12PM ; [facility] Patient education about a pr oper diet Last Documented On 1 1:30PM ; [facility] Patient education about meal planning Last Documented On 1 1:30PM ; [facility] Education about changing eat ing habits Last Documented On 1 1:30PM ; [facility] Patient education about high fiber diet Last Documented On 1 1:30PM ; [facility] Patient education about low fat diet Last Documented On 1 1:30PM ; [facility] Patient education about low cholesterol diet Last Documented On 1 1:30PM ; [facility] Patient education about low carbohydrate diet Last Documented On 1 1:30PM ; [facility] Patient education about high protein diet Last Documented On 1 1:30PM ; [facility] Discussed concerns about exe rcise : promote physical activity Last Documented On 1 1:12PM ; [facility] Education/counseling conduct ed by pharmacist Last Documented On 0 1:39PM ; [facility] Vaccination counseling Last Documented On 0 1:39PM ; [facility] Discussed concerns about exe rcise : promote physical activity Last Documented On 0 2:16PM ; [facility] Patient goals decrease short ness of breath episodes Last Documented On 0 2:11PM ; [facility] Patient states that she uses her rescue inhaler maybe 2 times a month. States that she is in today because other people told her that she has shortness of breath. ~ ~States that she uses her dulera 1 puff by mouth twice a day (uses spacer with inhaler). ~ ~Spirometry was done today with some difficulty during test. Spirometry showed mild restriction. ~ ~Counseled patient on the importance of adherence to inhalers and use of spacer. Patient states that she hears a whistle from time to time when using spacer. Counseled patient that spacer noise can be due to breathing in too fast. ~ ~Possible Raynauds Syndrome due to middle left finger tip turning blue. States this happens every winter. Counseled patient on making sure she wears gloves and to keep her fingers warm. ~ ~Blood pressure well controlled today at 116/70. Previous elevated blood pressures have been due to patient smoking prior to appointment per patient. Counseled on the importance of quitting and for her to reach out to us when she is ready to quit. ~ ~States recently received flu and pneumonia vaccine recently Last Documented On 0 2:24PM ; [facility] Patient education about a pr oper diet Last Documented On 0 2:54PM ; [facility] Patient education about meal planning Last Documented On 0 2:54PM ; [facility] Education about changing eat ing habits Last Documented On 0 2:54PM ; [facility] Patient education about high fiber diet Last Documented On 0 2:54PM ; [facility] Patient education about low fat diet Last Documented On 0 2:54PM ; [facility] Patient education about low cholesterol diet Last Documented On 0 2:54PM ; [facility] Patient education about low carbohydrate diet Last Documented On 0 2:54PM ; [facility] Patient education about high protein diet Last Documented On 0 2:54PM ; [facility] Discussed nutritional needs teach healthy choices including fruits and vegetables Last Documented On 0 11:11AM ; [facility] Patient education about a pr oper diet Last Documented On 0 11:11AM ; [facility] Patient education about a pr oper diet Last Documented On 0 11:28AM ; [facility] Patient education about meal planning Last Documented On 0 11:28AM ; [facility] Education about changing eat ing habits Last Documented On 0 11:28AM ; [facility] Patient education about high fiber diet Last Documented On 0 11:28AM ; [facility] Patient education about low fat diet Last Documented On 0 11:28AM ; [facility] Patient education about low cholesterol diet Last Documented On 0 11:28AM ; [facility] Patient education about low carbohydrate diet Last Documented On 0 11:28AM ; [facility] Patient education about high protein diet Last Documented On 0 11:28AM ; [facility] Discussed concerns about exe rcise : promote physical activity Last Documented On 0 11:11AM ; [facility] Education/counseling conduct ed by pharmacist Last Documented On 0 1:41PM ; [facility] Patient states that she lonnie gonzalez has issues using inhaler. Patient brought in inhaler to appt. Rarely uses her rescue inhaler, may use it every 3-4 months ~ ~Performed technique where the spacer whistled. Patient was shown video on proper inhalation technique and patient repeated steps. Patient is to not blow in the spacer but to breath in medication from the spacer. ~ ~Had questions on how to use nasal spray and eye ointment. Patient was counseled on how to use. ~ ~Interested in switching omeprazole to famotidine or rantidine. Please follow up at next scheduled visit. ~ ~She has cut down her smoking to 3 cigarettes a day and will be cutting down smoking on her own Last Documented On 0 2:08PM ; [facility] Education/counseling conduct ed by pharmacist Last Documented On 9 1:12PM ; [facility] Patient states that she lonnie gonzalez has issues with her inhaler with the spacer. Patient did not bring in inhaler or spacer. Patient was told to bring in inhalers at next scheduled visit for pharmacist to assess inhalation technique. Patient is agreeable Last Documented On 9 1:13PM ; [facility] Patient goals Start using ch deon to help with inhaling dulera Last Documented On 9 2:40PM ; [facility] Patient states that she is g etting frustrated with inhaler use and nasal spray. ~ ~Patient performed correct technique in office but she is still frustrated. Provided patient with education sheet on how to use inhalers. Patient is interested in using spacer to help with dulera administration. ~ ~Cut down smoking from 4-6 cigarettes to 2 cigarettes cold turkey. ~ ~Recommended flu and pneumonia vaccine but denied at this time. Counseled on the importance of vaccines Last Documented On 9 2:51PM ; [facility] Discussed nutritional needs teach healthy choices including fruits and vegetables Last Documented On 9 9:29AM ; [facility] Patient education about a pr oper diet Last Documented On 9 9:29AM ; [facility] Discussed concerns about exe rcise : promote physical activity Last Documented On 9 9:29AM ; [facility] Work Phone: [phone] [phone] Instructions Includes: Instructions for all patient encounters Instructions to patient Intervention and counseling on cessation of tobacco use, 3-10 minutes Discussed medication and nicotine replacement for tobacco cessation Last Documented On 3 8:54AM ; [facility] Intervention and counseling on cessation of tobacco use, 3-10 minutes Discussed medication and nicotine replacement for tobacco cessation Last Documented On 2 1:56PM ; [facility] Intervention and counseling on cessation of tobacco use, 3-10 minutes Last Documented On 0 2:07PM ; [facility] Return to the clinic if cond ition worsens or new symptoms arise Last Documented On 9 1:59PM ; [facility] Intervention and counseling on cessation of tobacco use, 3-10 minutes Last Documented On 9 10:39AM ; [facility] Education and Decision Aids were provided during visit for: Discussed nutritional needs teach healthy choices including fruits and vegetables Last Documented On 3 8:32AM ; [facility] Patient education about a pr oper diet Last Documented On 3 8:32AM ; [facility] Discussed concerns about exe rcise : promote physical activity Last Documented On 3 8:32AM ; [facility] Discussed nutritional needs teach healthy choices including fruits and vegetables Last Documented On 3 11:28AM ; [facility] Patient education about a pr oper diet Last Documented On 3 11:28AM ; [facility] Discussed concerns about exe rcise : promote physical activity Last Documented On 3 11:28AM ; [facility] Discussed nutritional needs teach healthy choices including fruits and vegetables Last Documented On 2 2:01PM ; [facility] Patient education about a pr oper diet Last Documented On 2 2:01PM ; [facility] Discussed concerns about exe rcise : promote physical activity Last Documented On 2 2:01PM ; [facility] Discussed nutritional needs teach healthy choices including fruits and vegetables Last Documented On 2 2:11PM ; [facility] Patient education about a pr oper diet Last Documented On 2 2:11PM ; [facility] Discussed concerns about exe rcise : promote physical activity Last Documented On 2 2:11PM ; [facility] Discussed current self-care methods/coping skills. ~Validated and normalized pt's feelings while assisting patient process recent events. ~Discussed ongoing counseling. ~Discussed lifestyle changes to address chronic illness. ~Supported patient's personal health goals ~wordfinds. walk, read, eat, enjoy my best friesnd Last Documented On 2 5:54PM ; [facility] Discussed nutritional needs teach healthy choices including fruits and vegetables Last Documented On 2 10:04AM ; [facility] Patient education about a pr oper diet Last Documented On 2 10:04AM ; [facility] Discussed concerns about exe rcise : promote physical activity Last Documented On 2 10:04AM ; [facility] Discussed nutritional needs teach healthy choices including fruits and vegetables Last Documented On 2 1:25PM ; [facility] Patient education about a pr oper diet Last Documented On 2 1:25PM ; [facility] Discussed concerns about exe rcise : promote physical activity Last Documented On 2 1:25PM ; [facility] Discussed nutritional needs teach healthy choices including fruits and vegetables Last Documented On 1 10:08AM ; [facility] Patient education about a pr oper diet Last Documented On 1 10:08AM ; [facility] Discussed concerns about exe rcise : promote physical activity Last Documented On 1 10:08AM ; [facility] Discussed nutritional needs teach healthy choices including fruits and vegetables Last Documented On 1 1:12PM ; [facility] Patient education about a pr oper diet Last Documented On 1 1:12PM ; [facility] Patient education about a pr oper diet Last Documented On 1 1:30PM ; [facility] Patient education about meal planning Last Documented On 1 1:30PM ; [facility] Education about changing eat ing habits Last Documented On 1 1:30PM ; [facility] Patient education about high fiber diet Last Documented On 1 1:30PM ; [facility] Patient education about low fat diet Last Documented On 1 1:30PM ; [facility] Patient education about low cholesterol diet Last Documented On 1 1:30PM ; [facility] Patient education about low carbohydrate diet Last Documented On 1 1:30PM ; [facility] Patient education about high protein diet Last Documented On 1 1:30PM ; [facility] Discussed concerns about exe rcise : promote physical activity Last Documented On 1 1:12PM ; [facility] Education/counseling conduct ed by pharmacist Last Documented On 0 1:39PM ; [facility] Vaccination counseling Last Documented On 0 1:39PM ; [facility] Discussed concerns about exe rcise : promote physical activity Last Documented On 0 2:16PM ; [facility] Patient goals decrease short ness of breath episodes Last Documented On 0 2:11PM ; [facility] Patient states that she uses her rescue inhaler maybe 2 times a month. States that she is in today because other people told her that she has shortness of breath. ~ ~States that she uses her dulera 1 puff by mouth twice a day (uses spacer with inhaler). ~ ~Spirometry was done today with some difficulty during test. Spirometry showed mild restriction. ~ ~Counseled patient on the importance of adherence to inhalers and use of spacer. Patient states that she hears a whistle from time to time when using spacer. Counseled patient that spacer noise can be due to breathing in too fast. ~ ~Possible Raynauds Syndrome due to middle left finger tip turning blue. States this happens every winter. Counseled patient on making sure she wears gloves and to keep her fingers warm. ~ ~Blood pressure well controlled today at 116/70. Previous elevated blood pressures have been due to patient smoking prior to appointment per patient. Counseled on the importance of quitting and for her to reach out to us when she is ready to quit. ~ ~States recently received flu and pneumonia vaccine recently Last Documented On 0 2:24PM ; [facility] Patient education about a pr oper diet Last Documented On 0 2:54PM ; [facility] Patient education about meal planning Last Documented On 0 2:54PM ; [facility] Education about changing eat ing habits Last Documented On 0 2:54PM ; [facility] Patient education about high fiber diet Last Documented On 0 2:54PM ; [facility] Patient education about low fat diet Last Documented On 0 2:54PM ; [facility] Patient education about low cholesterol diet Last Documented On 0 2:54PM ; [facility] Patient education about low carbohydrate diet Last Documented On 0 2:54PM ; [facility] Patient education about high protein diet Last Documented On 0 2:54PM ; [facility] Discussed nutritional needs teach healthy choices including fruits and vegetables Last Documented On 0 11:11AM ; [facility] Patient education about a pr oper diet Last Documented On 0 11:11AM ; [facility] Patient education about a pr oper diet Last Documented On 0 11:28AM ; [facility] Patient education about meal planning Last Documented On 0 11:28AM ; [facility] Education about changing eat ing habits Last Documented On 0 11:28AM ; [facility] Patient education about high fiber diet Last Documented On 0 11:28AM ; [facility] Patient education about low fat diet Last Documented On 0 11:28AM ; [facility] Patient education about low cholesterol diet Last Documented On 0 11:28AM ; [facility] Patient education about low carbohydrate diet Last Documented On 0 11:28AM ; [facility] Patient education about high protein diet Last Documented On 0 11:28AM ; [facility] Discussed concerns about exe rcise : promote physical activity Last Documented On 0 11:11AM ; [facility] Education/counseling conduct ed by pharmacist Last Documented On 0 1:41PM ; [facility] Patient states that she lonnie gonzalez has issues using inhaler. Patient brought in inhaler to appt. Rarely uses her rescue inhaler, may use it every 3-4 months ~ ~Performed technique where the spacer whistled. Patient was shown video on proper inhalation technique and patient repeated steps. Patient is to not blow in the spacer but to breath in medication from the spacer. ~ ~Had questions on how to use nasal spray and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 administration. ~ ~Cut down smoking from 4-6 cigarettes to 2 cigarettes cold turkey. ~ ~Recommended flu and pneumonia vaccine but denied at this time. Counseled on the importance of vaccines Last Documented On 9 2:51PM ; [facility] Discussed nutritional needs teach healthy choices including fruits and vegetables Last Documented On 9 9:29AM ; [facility] Patient education about a pr oper diet Last Documented On 9 9:29AM ; [facility] Discussed concerns about exe rcise : promote physical activity Last Documented On 9 9:29AM ; [facility] Work Phone: [phone] 382-108910-18-2022 Evaluation note Includes: Assessments for all patient encounters Findings Encounter Date Bipolar disorder NOS Established Pita ent with Yin Boswells [facility] 03/20/2022 Schizoaffective disorder Established Patient with Yin Feliz [facility] 03/20/2022 No cough Medical Established Patient with Karla Amber [employer] 12/20/2021 Visit for: screening for hum an immunodeficiency virus Medical Established Patient with Karla Amber [employer] OPER[employer] 12/20/2021 Z68.24 - Body mass index [BM I] 24.0-24.9, adult Medical Established Patient with Karla Amber [employer] 12/20/2021 Bipolar disorder NOS Established Pita ent with Yin Feliz [facility] 11/03/2021 Bipolar schizoaffective disorder Esta blished Patient with Yin Feliz [facility] 11/03/2021 PLAN Medical Established Patient with Don Pino MD 11/03/2021 Abnormal electrocardiogram Medical Estab lished Patient with Don Pino MD 11/03/2021 Z68.24 - Body mass index [BM I] 24.0-24.9, adult Medical Established Patient with Don Pino MD 11/03/2021 Cough Medical Established Patient with Karla Clark CNP 07/28/2021 Intervention and counseling on cessation of tobacco use, 3-10 minutes Discussed medication and nicotine replacement for tobacco cessation Medical Established Patient with Karla Clark CNP 07/28/2021 Nicotine dependence Medical Established Patient with Karla Clark CNP 07/28/2021 Z68.24 - Body mass index [BM I] 24.0-24.9, adult Medical Established Patient with Karlajulius Clark CNP 07/28/2021 Assess Colon screening Medical Establish ed Patient with Karla Clark [employer] 05/08/2021 Diabetes Risk Test Score was four score 05/08/2021 Medical Established Patient with Karla Clark [employer] 05/08/2021 Routine adult history and ph ysical (18-64 yrs) without abnormal findings Medical Established Patient with Karla Clark [employer]PER[employer] 05/08/2021 Z68.24 - Body mass index [BM I] 24.0-24.9, adult Medical Established Patient with Karla Clark [employer] 05/08/2021 Z68.24 - Body mass index [BM I] 24.0-24.9, adult Medical Established Patient with Karla Amber [employer] OPER[employer] 06/17/2020 Overweight Medical Established Patient with Karla Clark [facility] 06/06/2020 Z68.25 - Body mass index [BM I] 25.0-25.9, adult Medical Established Patient with Karla Amber STUDIO CAMERA OPERATOR 06/06/2020 Antiasthmatics [facility] with Karlajulius Clark [facility] 05/06/2020 Assessment of tobacco use [facility]-New with Karla Amber [facility] 05/06/2020 Body mass index [facility] with Karlajulius Clark [facility] 05/06/2020 Chronic obstructive pulmonary disease CP S [facility] Clinic-New with Karla Amber [facility] 05/06/2020 Overweight [facility]Ne w with Karla Amber [facility] 05/06/2020 Z11.4 - Encounter for screen ing for human immunodeficiency virus [HIV] [facility] with Karla Amber [facility] 05/06/2020 Diabetes Risk Test Score was three score 03/31/2020 Medical Established Patient with Karla Amber [facility] 03/31/2020 Overweight Medical Established Patient with Karla Amber [facility] 03/31/2020 Z68.25 - Body mass index [BM I] 25.0-25.9, adult Medical Established Patient with Karla Amber [facility] 03/31/2020 Encounter for Immunization Nurse Visit with GaryNicolasa [facility] 03/14/2020 Body mass index Medical Established Patient with Karla Amber STUDIO CAMERA OPERATOR 02/26/2020 Overweight Medical Established Patient with Karlajulius Clark STUDIO CAMERA OPERATOR 02/26/2020 Overweight Medical Established Patient with Karlajulius Clark STUDIO CAMERA OPERATOR 07/23/2019 Z68.27 - Body mass index (BM I) 27.0-27.9, adult Medical Established Patient with Karlajulius Clark STUDIO CAMERA OPERATOR 07/23/2019 Occasional asthma [facility]- [facility]- F/U with Karlajulius Floresen STUDIO CAMERA OPERATOR 06/05/2019 Overweight [facility]- [facility]- F/U with Karla Amber STUDIO CAMERA OPERATOR 06/05/2019 Z68.27 - Body mass index (BM I) 27.0-27.9 adult [facility]- [facility]- F/U with Karlajulius Floresen STUDIO CAMERA OPERATOR 06/05/2019 Occasional asthma CPS Med Review with Karlajulius Clark STUDIO CAMERA OPERATOR 04/23/2019 Overweight CPS Med Review with Karlajulius Clark STUDIO CAMERA OPERATOR 04/23/2019 Z68.27 - Body mass index (BM I) 27.0-27.9 adult CPS Med Review with Karlajulius Clark STUDIO CAMERA OPERATOR 04/23/2019 Acute pharyngitis Medical Established Patient with Brandy Warren STUDIO CAMERA OPERATOR 04/15/2019 Asthmatic bronchitis with ac atka exacerbation Medical Established Patient with Brandy Warren STUDIO CAMERA OPERATOR 04/15/2019 Fagerstrom Score was two Medical Establi shed Patient with Brandy Warren STUDIO CAMERA OPERATOR 04/15/2019 PHQ-9: total score was three 04/15/2019 Medical Established Patient with Brandy Warren [facility] 04/15/2019 Body mass index Medical Established Patient with Karla Clark [facility] 03/05/2019 Diabetes Risk Test Score was three score Medical Established Patient with Karla Clark STUDIO CAMERA OPERATOR 03/05/2019 Overweight Medical Established Patient with Karla Amber [facility] 03/05/2019 Z68.28 - Body mass index (BM I) 28.0-28.9, adult Medical Established Patient with Karla Clark STUDIO CAMERA OPERATOR 12/22/2018 Assess routine adult history and physical (18 - 64 yrs) Medical Established Patient with Karlajulius Floresen STUDIO CAMERA OPERATOR 11/06/2018 Overweight Medical Established Patient with Karla Amber STUDIO CAMERA OPERATOR 11/06/2018 Z68.28 - Body mass index (BM I) 28.0-28.9, adult Medical Established Patient with Karla Amber STUDIO CAMERA OPERATOR 11/06/2018 Assess dysphagia Medical Established Patient with Karla Amber STUDIO CAMERA OPERATOR 09/11/2018 Assess routine adult history and physical (18 - 64 yrs) Medical Established Patient with Karla Amber STUDIO CAMERA OPERATOR 09/11/2018 Assess primary insomnia with sleep apnea Medical Established Patient with Karlajulius Floresen STUDIO CAMERA OPERATOR 09/04/2018 Assess routine adult history and physical (18 - 64 yrs) Medical Established Patient with Karla Amber STUDIO CAMERA OPERATOR 09/04/2018 Overweight Medical Established Patient with Karlajulius Clark STUDIO CAMERA OPERATOR 09/04/2018 Z68.29 - Body mass index (BM I) 29.0-29.9, adult Medical Established Patient with Karla Clark STUDIO CAMERA OPERATOR 09/04/2018 Assess vaginal candidiasis Medical Estab lished Patient with Karlajulius Clark STUDIO CAMERA OPERATOR 07/31/2018 [facility] Work Phone: [phone] 232-365110-18-2022 Evaluation note Includes: Assessments for all patient encounters Findings Encounter Date Schizoaffective disorder BH Established Patient with Yin Feliz LPCC-S 03/20/2022 No cough Medical Established Patient with Karlajulius Floresen STUDIO CAMERA OPERATOR 12/20/2021 Visit for: screening for hum an immunodeficiency virus Medical Established Patient with Karla Clark STUDIO CAMERA OPERATOR 12/20/2021 Z68.24 - Body mass index [BM I] 24.0-24.9, adult Medical Established Patient with Karlajulius Clark STUDIO CAMERA OPERATOR 12/20/2021 Bipolar disorder NOS BH Established Pita ent with [facility]in Feliz [facility] 11/03/2021 Bipolar schizoaffective disorder BH Esta blished Patient with Yin Feliz [facility]CC-S 11/03/2021 PLAN Medical Established Patient with Don Pino MD 11/03/2021 Abnormal electrocardiogram Medical Estab lished Patient with Don Pino MD 11/03/2021 Z68.24 - Body mass index [BM I] 24.0-24.9, adult Medical Established Patient with Don Pino MD 11/03/2021 Cough Medical Established Patient with Karla Amber CROOKS 07/28/2021 Intervention and counseling on cessation of tobacco use, 3-10 minutes Discussed medication and nicotine replacement for tobacco cessation Medical Established Patient with Karla Clark STUDIO CAMERA OPERATOR 07/28/2021 Nicotine dependence Medical Established Patient with Karla Clark STUDIO CAMERA OPERATOR 07/28/2021 Z68.24 - Body mass index [BM I] 24.0-24.9, adult Medical Established Patient with Karla Clark STUDIO CAMERA OPERATOR 07/28/2021 Assess Colon screening Medical Establish ed Patient with Karla Clark CNP 05/08/2021 Diabetes Risk Test Score was four score 05/08/2021 Medical Established Patient with Karla Clark STUDIO CAMERA OPERATOR 05/08/2021 Routine adult history and ph ysical (18-64 yrs) without abnormal findings Medical Established Patient with Karla Clark STUDIO CAMERA OPERATOR 05/08/2021 Z68.24 - Body mass index [BM I] 24.0-24.9, adult Medical Established Patient with Karla Clark STUDIO CAMERA OPERATOR 05/08/2021 Z68.24 - Body mass index [BM I] 24.0-24.9, adult Medical Established Patient with Karla Amber STUDIO CAMERA OPERATOR 06/17/2020 Overweight Medical Established Patient with Karla Amber STUDIO CAMERA OPERATOR 06/06/2020 Z68.25 - Body mass index [BM I] 25.0-25.9, adult Medical Established Patient with Karla Floresen STUDIO CAMERA OPERATOR 06/06/2020 Antiasthmatics [facility] with Karlajulius Clark [facility] 05/06/2020 Assessment of tobacco use [facility] Cli yash-New with Karla Amber [facility] 05/06/2020 Body mass index [facility] w with Karlajulius Clark [facility] 05/06/2020 Chronic obstructive pulmonary disease CP S [facility] Clinic-New with Karlajulius Clark [facility] 05/06/2020 Overweight [facility] w with Karlajulius Clark [facility] 05/06/2020 Z11.4 - Encounter for screen ing for human immunodeficiency virus [HIV] [facility]New with Karla Amber [facility] 05/06/2020 Diabetes Risk Test Score was three score 03/31/2020 Medical Established Patient with Karla Amber [facility] 03/31/2020 Overweight Medical Established Patient with Karla Clark [facility] 03/31/2020 Z68.25 - Body mass index [BM I] 25.0-25.9, adult Medical Established Patient with Karla Amber [facility] 03/31/2020 Encounter for Immunization Nurse Visit with Gary Clark [facility] 03/14/2020 Body mass index Medical Established Patient with Karla Amber STUDIO CAMERA OPERATOR 02/26/2020 Overweight Medical Established Patient with Karla Amber [facility] 02/26/2020 Overweight Medical Established Patient with Karla Amber STUDIO CAMERA OPERATOR 07/23/2019 Z68.27 - Body mass index (BM I) 27.0-27.9, adult Medical Established Patient with Karla Amber STUDIO CAMERA OPERATOR 07/23/2019 Occasional asthma [facility]- [facility]hma Clinic- F/U with Karlajulius Clark STUDIO CAMERA OPERATOR 06/05/2019 Overweight [facility]PS- [facility] Clinic- F/U with Karlajulius Clark [facility] 06/05/2019 Z68.27 - Body mass index (BM I) 27.0-27.9 adult CPS- [facility]hma Clinic- F/U with Karla Clark STUDIO CAMERA OPERATOR 06/05/2019 Occasional asthma CPS Med Review with Karla Clark STUDIO CAMERA OPERATOR 04/23/2019 Overweight CPS Med Review with Karlajulius Clark STUDIO CAMERA OPERATOR 04/23/2019 Z68.27 - Body mass index (BM I) 27.0-27.9 adult CPS Med Review with Karlajulius Clark STUDIO CAMERA OPERATOR 04/23/2019 Acute pharyngitis Medical Established Patient with Brandy Serranoer STUDIO CAMERA OPERATOR 04/15/2019 Asthmatic bronchitis with ac atka exacerbation Medical Established Patient with Brandy Kelley STUDIO CAMERA OPERATOR 04/15/2019 Fagerstrom Score was two Medical Establi shed Patient with Brandy Kelley STUDIO CAMERA OPERATOR 04/15/2019 PHQ-9: total score was three 04/15/2019 [facility] Body mass index Medical Established Patient with Karla Clark [facility] 03/05/2019 Diabetes Risk Test Score was three score Medical Established Patient with Karla Floresen [facility] 03/05/2019 Overweight Medical Established Patient with Karla Amber [facility] 03/05/2019 Z68.28 - Body mass index (BM I) 28.0-28.9, adult Medical Established Patient with Karlajulius Clark [facility] 12/22/2018 Assess routine adult history and physical (18 - 64 yrs) Medical Established Patient with Karlajulius Clark [facility] 11/06/2018 Overweight Medical Established Patient with Karlajulius Clark STUDIO CAMERA OPERATOR 11/06/2018 Z68.28 - Body mass index (BM I) 28.0-28.9, adult Medical Established Patient with Akrlajulius Clark [facility] 11/06/2018 Assess dysphagia Medical Established Patient with Karla Amber [facility] 09/11/2018 Assess routine adult history and physical (18 - 64 yrs) Medical Established Patient with Karla Amber STUDIO CAMERA OPERATOR 09/11/2018 Assess primary insomnia with sleep apnea Medical Established Patient with Karla Amber STUDIO CAMERA OPERATOR 09/04/2018 Assess routine adult history and physical (18 - 64 yrs) Medical Established Patient with Karla Amber STUDIO CAMERA OPERATOR 09/04/2018 Overweight Medical Established Patient with Karla Amber STUDIO CAMERA OPERATOR 09/04/2018 Z68.29 - Body mass index (BM I) 29.0-29.9, adult Medical Established Patient with Karlajulius Floresen STUDIO CAMERA OPERATOR 09/04/2018 Assess vaginal candidiasis Medical Estab lished Patient with Karlajulius Floresen STUDIO CAMERA OPERATOR 07/31/2018 [facility] Work Phone: [phone]) 614-281310-18-2022 History general Narrative - Reported Includes: Medical History in patient's chart Description Last Updated No previous hospitalizations 03/20/2022 Currently nursing 11/03/2021 [facility] status unknown for sexually tra nsmitted infection 11/03/2021 11/03/2021 Not planning to have a baby in the next 12 months 11/03/2021 Heart Attack 03/2021 [facility] 1 07/09/2020 A recent immunization for flu 05/06/2020 Patient gave verbal consent for teleheal th 08/31/2019 History of abnormal electrocardiogram History of asthma 07/31/2018 History of cardiovascular disorder 07/31 History of respiratory disorder 07/31/19 19 History of bipolar disorder NOS 07/31/19 19 History of depression 07/31/2018 History of psychiatric disorders 019 [facility] Work Phone: 1(322) 835-475610-18-2022 History general Narrative - Reported Includes: Medical History in patient's chart Description Last Updated No previous hospitalizations 03/20/2022 Last Documented On 2 2:28PM ; [facility] Currently nursing 11/03/2021 Last Documented On 2 7:00PM ; [facility] status unknown for sexually tra nsmitted infection 11/03/2021 Last Documented On 2 7:00PM ; [facility] 11/03/2021 Last Documented On 2 7:00PM ; [facility] Not planning to have a baby in the next 12 months 11/03/2021 Last Documented On 2 7:00PM ; [facility] Heart Attack 03/2021 [facility] 1 07/09/2020 Last Documented On 1 10:59AM ; [facility] A recent immunization for flu 05/06/2020 Last Documented On 0 7:27PM ; [facility] Patient gave verbal consent for teleheal th 08/31/2019 Last Documented On 0 9:21AM ; [facility] History of abnormal electrocardiogram Last Documented On 9 2:12PM ; [facility] History of asthma 07/31/2018 Last Documented On 9 2:12PM ; [facility] History of cardiovascular disorder 07/31 Last Documented On 9 2:12PM ; [facility] History of respiratory disorder 07/31/19 19 Last Documented On 9 2:12PM ; [facility] History of bipolar disorder NOS 07/31/19 19 Last Documented On 9 2:12PM ; [facility] History of depression 07/31/2018 Last Documented On 9 2:12PM ; [facility] History of psychiatric disorders 019 Last Documented On 9 2:12PM ; [facility] Work Phone: [phone] 827-823210-18-2022 History general Narrative - Reported Includes: Medical History in patient's chart Description Last Updated No previous hospitalizations 03/20/2022 Last Documented On 2 2:28PM ; [facility] Currently nursing 11/03/2021 Last Documented On 2 7:00PM ; [facility] status unknown for sexually tra nsmitted infection 11/03/2021 Last Documented On 2 7:00PM ; [facility] 11/03/2021 Last Documented On 2 7:00PM ; [facility] Not planning to have a baby in the next 12 months 11/03/2021 Last Documented On 2 7:00PM ; [facility] Heart Attack 03/2021 [facility] 1 07/09/2020 Last Documented On 1 10:59AM ; [facility] A recent immunization for flu 05/06/2020 Last Documented On 0 7:27PM ; [facility] Patient gave verbal consent for teleheal th 08/31/2019 Last Documented On 0 9:21AM ; [facility] History of abnormal electrocardiogram Last Documented On 9 2:12PM ; [facility] History of asthma 07/31/2018 Last Documented On 9 2:12PM ; [facility] History of cardiovascular disorder 07/31 Last Documented On 9 2:12PM ; [facility] History of respiratory disorder 07/31/19 19 Last Documented On 9 2:12PM ; [facility] History of bipolar disorder NOS 07/31/19 19 Last Documented On 9 2:12PM ; [facility] History of depression 07/31/2018 Last Documented On 9 2:12PM ; [facility] History of psychiatric disorders 019 Last Documented On 9 2:12PM ; [facility] Work Phone: [phone] 796-347310-18-2022 History general Narrative - Reported Includes: Medical History in patient's chart Description Last Updated No previous hospitalizations 03/20/2022 Last Documented On 2 2:28PM ; [facility] Currently nursing 11/03/2021 Last Documented On 2 7:00PM ; [facility] status unknown for sexually tra nsmitted infection 11/03/2021 Last Documented On 2 7:00PM ; [facility] 11/03/2021 Last Documented On 2 7:00PM ; [facility] Not planning to have a baby in the next 12 months 11/03/2021 Last Documented On 2 7:00PM ; [facility] Heart Attack 03/2021 [facility] 1 07/09/2020 Last Documented On 1 10:59AM ; [facility] A recent immunization for flu 05/06/2020 Last Documented On 0 7:27PM ; [facility] Patient gave verbal consent for teleheal th 08/31/2019 Last Documented On 0 9:21AM ; [facility] History of abnormal electrocardiogram Last Documented On 9 2:12PM ; [facility] History of asthma 07/31/2018 Last Documented On 9 2:12PM ; [facility] History of cardiovascular disorder 07/31 Last Documented On 9 2:12PM ; [facility] History of respiratory disorder 07/31/19 19 Last Documented On 9 2:12PM ; [facility] History of bipolar disorder NOS 07/31/19 19 Last Documented On 9 2:12PM ; [facility] History of depression 07/31/2018 Last Documented On 9 2:12PM ; [facility] History of psychiatric disorders 019 Last Documented On 9 2:12PM ; [facility] Work Phone: [phone] 278-308710-18-2022 History general Narrative - Reported Includes: Medical History in patient's chart Description Last Updated No previous hospitalizations 03/20/2022 Last Documented On 2 2:28PM ; [facility] Currently nursing 11/03/2021 Last Documented On 2 7:00PM ; [facility] status unknown for sexually tra nsmitted infection 11/03/2021 Last Documented On 2 7:00PM ; [facility] 11/03/2021 Last Documented On 2 7:00PM ; [facility] Not planning to have a baby in the next 12 months 11/03/2021 Last Documented On 2 7:00PM ; [facility] Heart Attack 03/2021 [facility] 1 07/09/2020 Last Documented On 1 10:59AM ; [facility] A recent immunization for flu 05/06/2020 Last Documented On 0 7:27PM ; [facility] Patient gave verbal consent for teleheal th 08/31/2019 Last Documented On 0 9:21AM ; [facility] History of abnormal electrocardiogram Last Documented On 9 2:12PM ; [facility] History of asthma 07/31/2018 Last Documented On 9 2:12PM ; [facility] History of cardiovascular disorder 07/31 Last Documented On 9 2:12PM ; [facility] History of respiratory disorder 07/31/19 19 Last Documented On 9 2:12PM ; [facility] History of bipolar disorder NOS 07/31/19 19 Last Documented On 9 2:12PM ; [facility] History of depression 07/31/2018 Last Documented On 9 2:12PM ; [facility] History of psychiatric disorders 019 Last Documented On 9 2:12PM ; [facility] Work Phone: 1([phone] 135-660810-04-2022 History of Present illness Narrative* Soni Sosa - 03/06/2022 1:00 PM EDT Explained policies and procedure of an echocardiogram/Doppler study. [facility] [employer] Work Phone: [phone]) 527-240407-20-2022 Evaluation note Includes: Assessments for all patient encounters Findings Encounter Date No cough Medical Established Patient with Karla Amber CROOKS 12/20/2021 Visit for: screening for hum an immunodeficiency virus Medical Established Patient with Karla Clark STUDIO CAMERA OPERATOR 12/20/2021 Z68.24 - Body mass index [BM I] 24.0-24.9, adult Medical Established Patient with Karla Clark STUDIO CAMERA OPERATOR 12/20/2021 Bipolar disorder NOS BH Established Pita ent with Yin Feliz LPCC-S 11/03/2021 Bipolar schizoaffective disorder BH Esta blished Patient with Yinluis Feliz LPCC-S 11/03/2021 PLAN Medical Established Patient with Don Pino MD 11/03/2021 Abnormal electrocardiogram Medical Estab lished Patient with Don Pino MD 11/03/2021 Z68.24 - Body mass index [BM I] 24.0-24.9, adult Medical Established Patient with Don Pino MD 11/03/2021 Cough Medical Established Patient with Karla Clark CNP 07/28/2021 Intervention and counseling on cessation of tobacco use, 3-10 minutes Discussed medication and nicotine replacement for tobacco cessation Medical Established Patient with Karla Clark [facility] 07/28/2021 Nicotine dependence Medical Established Patient with Karla Clark [facility] 07/28/2021 Z68.24 - Body mass index [BM I] 24.0-24.9, adult Medical Established Patient with Karla Clark [facility] 07/28/2021 Assess Colon screening Medical Establish ed Patient with Karla Clark [facility] 05/08/2021 Diabetes Risk Test Score was four score 05/08/2021 Medical Established Patient with Karla Clark [facility] 05/08/2021 Routine adult history and ph ysical (18-64 yrs) without abnormal findings Medical Established Patient with Karla Clark [facility] 05/08/2021 Z68.24 - Body mass index [BM I] 24.0-24.9, adult Medical Established Patient with Karlajulius Clark [facility] 05/08/2021 Z68.24 - Body mass index [BM I] 24.0-24.9, adult Medical Established Patient with Karla Clark [facility] 06/17/2020 Overweight Medical Established Patient with Karla Clark [facility] 06/06/2020 Z68.25 - Body mass index [BM I] 25.0-25.9, adult Medical Established Patient with Karla Clark [facility] 06/06/2020 Antiasthmatics [facility] Clinic-Ne w with [facility] 05/06/2020 Assessment of tobacco use CPS Asthma Cli yash-New with Karla Amber CNP 05/06/2020 Body mass index [facility]-Ne w with [facility] 05/06/2020 Chronic obstructive pulmonary disease CP S Asthma Clinic-New with [facility] 05/06/2020 Overweight [facility] Clinic-Ne w with [facility] 05/06/2020 Z11.4 - Encounter for screen ing for human immunodeficiency virus [HIV] [facility]-New with [facility] 05/06/2020 Diabetes Risk Test Score was three score 03/31/2020 [facility] Over[facility] Medical Established Patient with [facility] 03/31/2020 Z68.25 - Body mass index [BM I] 25.0-25.9, adult Medical Established Patient with [facility] 03/31/2020 Encounter for Immunization Nurse Visit with Gary segundo Amber [facility] 03/14/2020 Body mass index Medical Established Patient with Karla Amber [facility] 02/26/2020 Overweight Medical Established Patient with Karla Amebr [facility] 02/26/2020 Overweight Medical Established Patient with Karla Amber [facility] 07/23/2019 Z68.27 - Body mass index (BM I) 27.0-27.9, adult Medical Established Patient with Karla Amber [facility] 07/23/2019 Occasional asthma CPS- Asthma Clinic- F/U with Karla Amber [facility] 06/05/2019 Overweight CPS- Asthma Clinic- F/U with Karla Amber [facility] 06/05/2019 Z68.27 - Body mass index (BM I) 27.0-27.9 adult CPS- Asthma Clinic- F/U with Karla Amber [facility] 06/05/2019 Occasional asthma CPS Med Review with Karla Amber [facility] 04/23/2019 Overweight CPS Med Review with Karla Amber [facility] 04/23/2019 Z68.27 - Body mass index (BM I) 27.0-27.9 adult CPS Med Review with Karla Amber [facility] 04/23/2019 Acute pharyngitis Medical Established Patient with Brandy Serranoer [facility] 04/15/2019 Asthmatic bronchitis with ac atka exacerbation Medical Established Patient with Brandy Serranoer [facility] 04/15/2019 Fagerstrom Score was two Medical Establi shed Patient with Brandy Serranoer [facility] 04/15/2019 PHQ-9: total score was three 04/15/2019 Medical Established Patient with Brandy Serranoer [facility] 04/15/2019 Body mass index Medical Established Patient with Karla Amber [facility] 03/05/2019 Diabetes Risk Test Score was three score Medical Established Patient with Karla Amber [facility] 03/05/2019 Overweight Medical Established Patient with Karla Amber [facility] 03/05/2019 Z68.28 - Body mass index (BM I) 28.0-28.9, adult Medical Established Patient with Karla Amber [facility] 12/22/2018 Assess routine adult history and physical (18 - 64 yrs) Medical Established Patient with Karla Amber [facility] 11/06/2018 Overweight Medical Established Patient with Karla Amber [facility] 11/06/2018 Z68.28 - Body mass index (BM I) 28.0-28.9, adult Medical Established Patient with Karla Amber [facility] 11/06/2018 Assess dysphagia Medical Established Patient with Karla Clark STUDIO CAMERA OPERATOR 09/11/2018 Assess routine adult history and physical (18 - 64 yrs) Medical Established Patient with Karla Clark STUDIO CAMERA OPERATOR 09/11/2018 Assess primary insomnia with sleep apnea Medical Established Patient with Karlajulius Clark STUDIO CAMERA OPERATOR 09/04/2018 Assess routine adult history and physical (18 - 64 yrs) Medical Established Patient with Karlajulius Clark STUDIO CAMERA OPERATOR 09/04/2018 Overweight Medical Established Patient with Karlajulius Clark STUDIO CAMERA OPERATOR 09/04/2018 Z68.29 - Body mass index (BM I) 29.0-29.9, adult Medical Established Patient with Karlajulius Clark STUDIO CAMERA OPERATOR 09/04/2018 Assess vaginal candidiasis Medical Estab lished Patient with Karlajulius Clark STUDIO CAMERA OPERATOR 07/31/2018 [facility] Work Phone: 1(174) [phone] Evaluation note Includes: Assessments for all patient encounters Findings Encounter Date Bipolar disorder NOS BH Established Pita ent with Yin Feliz [facility] 11/03/2021 Bipolar schizoaffective disorder BH Esta blished Patient with Yinluis Feliz [facility] 11/03/2021 PLAN Medical Established Patient with Don Pino MD 11/03/2021 Abnormal electrocardiogram Medical Estab lished Patient with Don Pino MD 11/03/2021 Z68.24 - Body mass index [BM I] 24.0-24.9, adult Medical Established Patient with Don Pino MD 11/03/2021 Cough Medical Established Patient with Karla Amber [facility] 07/28/2021 Intervention and counseling on cessation of tobacco use, 3-10 minutes Discussed medication and nicotine replacement for tobacco cessation Medical Established Patient with Karla Amber [facility] 07/28/2021 Nicotine dependence Medical Established Patient with Karla Amber [facility] 07/28/2021 Z68.24 - Body mass index [BM I] 24.0-24.9, adult Medical Established Patient with Karla Amber STUDIO CAMERA OPERATOR 07/28/2021 Assess Colon screening Medical Establish ed Patient with Karla Clark STUDIO CAMERA OPERATOR 05/08/2021 Diabetes Risk Test Score was four score 05/08/2021 Medical Established Patient with Karla Clark STUDIO CAMERA OPERATOR 05/08/2021 Routine adult history and ph ysical (18-64 yrs) without abnormal findings Medical Established Patient with Karla Clark [facility] 05/08/2021 Z68.24 - Body mass index [BM I] 24.0-24.9, adult Medical Established Patient with Karla Floresen [facility] 05/08/2021 Z68.24 - Body mass index [BM I] 24.0-24.9, adult Medical Established Patient with Karla Amber STUDIO CAMERA OPERATOR 06/17/2020 Overweight Medical Established Patient with Karla Amber [facility] 06/06/2020 Z68.25 - Body mass index [BM I] 25.0-25.9, adult Medical Established Patient with Karla Amber STUDIO CAMERA OPERATOR 06/06/2020 Antiasthmatics [facility] Asthma Clinic-Ne w with Karlajulius Clark [facility] 05/06/2020 Assessment of tobacco use CPS Asthma Cli yash-New with Karlajulius Clark [facility] 05/06/2020 Body mass index [facility] Clinic-Ne w with Karlajulius Clark [facility] 05/06/2020 Chronic obstructive pulmonary disease CP S Asthma Clinic-New with Karlaujlius Clark [facility] 05/06/2020 Overweight [facility] Clinic-Ne w with Karlajulius Clark [facility] 05/06/2020 Z11.4 - Encounter for screen ing for human immunodeficiency virus [HIV] [facility] with Karla Amber [facility] 05/06/2020 Diabetes Risk Test Score was three score 03/31/2020 Medical Established Patient with Karla Amber [facility] 03/31/2020 Overweight Medical Established Patient with Karla Amber [facility] 03/31/2020 Z68.25 - Body mass index [BM I] 25.0-25.9, adult Medical Established Patient with Karlajulius Floresen [facility] 03/31/2020 Encounter for Immunization Nurse Visit with GaryNicolasa [facility] 03/14/2020 Body mass index Medical Established Patient with Karla Amber [facility] 02/26/2020 Overweight Medical Established Patient with Karla Amber [facility] 02/26/2020 Overweight Medical Established Patient with Karla Amber [facility] 07/23/2019 Z68.27 - Body mass index (BM I) 27.0-27.9, adult Medical Established Patient with Karlajulius Clark STUDIO CAMERA OPERATOR 07/23/2019 Occasional asthma CPS- Asthma Clinic- F/U with Karlajulius Clark STUDIO CAMERA OPERATOR 06/05/2019 Overweight CPS- Asthma Clinic- F/U with Karlajulius Clark [facility] 06/05/2019 Z68.27 - Body mass index (BM I) 27.0-27.9 adult CPS- Asthma Clinic- F/U with Karla Clark STUDIO CAMERA OPERATOR 06/05/2019 Occasional asthma CPS Med Review with Karla Clark STUDIO CAMERA OPERATOR 04/23/2019 Overweight CPS Med Review with Karlajulius Clark STUDIO CAMERA OPERATOR 04/23/2019 Z68.27 - Body mass index (BM I) 27.0-27.9 adult CPS Med Review with Karlajulius Clark STUDIO CAMERA OPERATOR 04/23/2019 Acute pharyngitis Medical Established Patient with Brandy Serranoer STUDIO CAMERA OPERATOR 04/15/2019 Asthmatic bronchitis with ac atka exacerbation Medical Established Patient with Brandy Serranoer STUDIO CAMERA OPERATOR 04/15/2019 Fagerstrom Score was two Medical Establi shed Patient with Brandy Serranoer STUDIO CAMERA OPERATOR 04/15/2019 PHQ-9: total score was three 04/15/2019 Medical Established Patient with Brandy Serranoer STUDIO CAMERA OPERATOR 04/15/2019 Body mass index Medical Established Patient with Karlajulius Clark STUDIO CAMERA OPERATOR 03/05/2019 Diabetes Risk Test Score was three score Medical Established Patient with Karlajulius Clark STUDIO CAMERA OPERATOR 03/05/2019 Overweight Medical Established Patient with Karla Amber STUDIO CAMERA OPERATOR 03/05/2019 Z68.28 - Body mass index (BM I) 28.0-28.9, adult Medical Established Patient with Karla Amber STUDIO CAMERA OPERATOR 12/22/2018 Assess routine adult history and physical (18 - 64 yrs) Medical Established Patient with Karla Amber STUDIO CAMERA OPERATOR 11/06/2018 Overweight Medical Established Patient with Karla Amber STUDIO CAMERA OPERATOR 11/06/2018 Z68.28 - Body mass index (BM I) 28.0-28.9, adult Medical Established Patient with Karla Amber STUDIO CAMERA OPERATOR 11/06/2018 Assess dysphagia Medical Established Patient with Karla Amber STUDIO CAMERA OPERATOR 09/11/2018 Assess routine adult history and physical (18 - 64 yrs) Medical Established Patient with Karla Amber STUDIO CAMERA OPERATOR 09/11/2018 Assess primary insomnia with sleep apnea Medical Established Patient with Karla Amber STUDIO CAMERA OPERATOR 09/04/2018 Assess routine adult history and physical (18 - 64 yrs) Medical Established Patient with Karla Amber STUDIO CAMERA OPERATOR 09/04/2018 Overweight Medical Established Patient with Karla Amber STUDIO CAMERA OPERATOR 09/04/2018 Z68.29 - Body mass index (BM I) 29.0-29.9, adult Medical Established Patient with Karla Amber STUDIO CAMERA OPERATOR 09/04/2018 Assess vaginal candidiasis Medical Estab lished Patient with Karlajulius Floresen STUDIO CAMERA OPERATOR 07/31/2018 [facility] Work Phone: 1(449) 887-853606-03-2022 History general Narrative - Reported Includes: Medical History in patient's chart Description Last Updated Currently nursing 11/03/2021 Partners status unknown for sexually tra nsmitted infection 11/03/2021 11/03/2021 Not planning to have a baby in the next 12 months 11/03/2021 Heart Attack 03/2021 [place] [id number] 07/09/2020 A recent immunization for flu 05/06/2020 Patient gave verbal consent for teleheal th 08/31/2019 History of abnormal electrocardiogram History of asthma 07/31/2018 History of cardiovascular disorder 07/31 History of respiratory disorder 07/31/19 19 History of bipolar disorder NOS 07/31/19 19 History of depression 07/31/2018 History of psychiatric disorders [facility] Work Phone: 1(639) 745-839705-13-2022 Note [id number]:[id number] 08-03-2021 Evaluation note* Diagnosis Breast lump on right side at 4 o'clock position Lump or mass in breast documented in this encounter [facility] Work Phone: 1(590) 677-352002-25-2022 Evaluation note Includes: Assessments for all patient encounters Findings Encounter Date Cough Medical Established Patient with Karla Clark STUDIO CAMERA OPERATOR 07/28/2021 Intervention and counseling on cessation of tobacco use, 3-10 minutes Discussed medication and nicotine replacement for tobacco cessation Medical Established Patient with Karla Clark STUDIO CAMERA OPERATOR 07/28/2021 Nicotine dependence Medical Established Patient with Karla Clark STUDIO CAMERA OPERATOR 07/28/2021 Z68.24 - Body mass index [BM I] 24.0-24.9, adult Medical Established Patient with Karla Clark STUDIO CAMERA OPERATOR 07/28/2021 Assess Colon screening Medical Establish ed Patient with Karla Clark CNP 05/08/2021 Diabetes Risk Test Score was four score 05/08/2021 Medical Established Patient with Karla Clark STUDIO CAMERA OPERATOR 05/08/2021 Routine adult history and ph ysical (18-64 yrs) without abnormal findings Medical Established Patient with Karla Clark STUDIO CAMERA OPERATOR 05/08/2021 Z68.24 - Body mass index [BM I] 24.0-24.9, adult Medical Established Patient with Karla Amber STUDIO CAMERA OPERATOR 05/08/2021 Z68.24 - Body mass index [BM I] 24.0-24.9, adult Medical Established Patient with Karla Amber STUDIO CAMERA OPERATOR 06/17/2020 Overweight Medical Established Patient with Karla Amber STUDIO CAMERA OPERATOR 06/06/2020 Z68.25 - Body mass index [BM I] 25.0-25.9, adult Medical Established Patient with Karla Amber STUDIO CAMERA OPERATOR 06/06/2020 Antiasthmatics [facility] Clinic-Ne w with Karla Amber [facility] 05/06/2020 Assessment of tobacco use CPS Asthma Cli yash-New with Karla Amber [facility] 05/06/2020 Body mass index [facility]PS Asthma Clinic-Ne w with Karlajulius Clark [facility] 05/06/2020 Chronic obstructive pulmonary disease CP S Asthma Clinic-New with Karlajulius Clark [facility] 05/06/2020 Overweight [facility]hma Clinic-Ne w with Karlajulius Clark [facility] 05/06/2020 Z11.4 - Encounter for screen ing for human immunodeficiency virus [HIV] [facility] Clinic-New with Karla Amber [facility] 05/06/2020 Diabetes Risk Test Score was three score 03/31/2020 Medical Established Patient with Karla Amber [facility] 03/31/2020 Overweight Medical Established Patient with Karla Amber [facility] 03/31/2020 Z68.25 - Body mass index [BM I] 25.0-25.9, adult Medical Established Patient with Karla Amber [facility] 03/31/2020 Encounter for Immunization Nurse Visit with GaryNicolasa [facility] 03/14/2020 Body mass index Medical Established Patient with Karla Amber [facility] 02/26/2020 Overweight Medical Established Patient with Karla Amber [facility] 02/26/2020 Overweight Medical Established Patient with Karla Amber [facility] 07/23/2019 Z68.27 - Body mass index (BM I) 27.0-27.9, adult Medical Established Patient with Karla Amber STUDIO CAMERA OPERATOR 07/23/2019 Occasional asthma CPS- Asthma Clinic- F/U with Karlajulius Clark STUDIO CAMERA OPERATOR 06/05/2019 Overweight CPS- Asthma Clinic- F/U with Karlajulius Clark STUDIO CAMERA OPERATOR 06/05/2019 Z68.27 - Body mass index (BM I) 27.0-27.9 adult CPS- Asthma Clinic- F/U with Karlajulius Clark [facility] 06/05/2019 Occasional asthma CPS Med Review with Karla Clark [facility] 04/23/2019 Overweight CPS Med Review with Karlajulius Clark [facility] 04/23/2019 Z68.27 - Body mass index (BM I) 27.0-27.9 adult CPS Med Review with Karlajulius Clark STUDIO CAMERA OPERATOR 04/23/2019 Acute pharyngitis Medical Established Patient with Brandy Kelley STUDIO CAMERA OPERATOR 04/15/2019 Asthmatic bronchitis with ac atka exacerbation Medical Established Patient with Brandy Kelley STUDIO CAMERA OPERATOR 04/15/2019 Fagerstrom Score was two Medical Establi shed Patient with Brandy Kelley STUDIO CAMERA OPERATOR 04/15/2019 PHQ-9: total score was three 04/15/2019 Medical Established Patient with Brandy Kelley STUDIO CAMERA OPERATOR 04/15/2019 Body mass index Medical Established Patient with Karla Clark [facility] 03/05/2019 Diabetes Risk Test Score was three score Medical Established Patient with Karla Clark [facility] 03/05/2019 Overweight Medical Established Patient with Karlajulius Clark [facility] 03/05/2019 Z68.28 - Body mass index (BM I) 28.0-28.9, adult Medical Established Patient with Karlajulius Clark [facility] 12/22/2018 Assess routine adult history and physical (18 - 64 yrs) Medical Established Patient with Karlajulius Clark [facility] 11/06/2018 Overweight Medical Established Patient with Karlajulius Clark [facility] 11/06/2018 Z68.28 - Body mass index (BM I) 28.0-28.9, adult Medical Established Patient with Karlajulius Clark [facility] 11/06/2018 Assess dysphagia Medical Established Patient with Karla Clark [facility] 09/11/2018 Assess routine adult history and physical (18 - 64 yrs) Medical Established Patient with Karlajulius Clark [facility] 09/11/2018 Assess primary insomnia with sleep apnea Medical Established Patient with Karla Amber [facility] 09/04/2018 Assess routine adult history and physical (18 - 64 yrs) Medical Established Patient with Karla Amber [facility] 09/04/2018 Overweight Medical Established Patient with Karlajulius Clark [facility] 09/04/2018 Z68.29 - Body mass index (BM I) 29.0-29.9, adult Medical Established Patient with Karlajulius Clark [facility] 09/04/2018 Assess vaginal candidiasis Medical Estab lished Patient with Karla Clark STUDIO CAMERA OPERATOR 07/31/2018 [facility] Work Phone: 1([phone]) 862-145210-01-2021 History general Narrative - Reported Includes: Medical History in patient's chart Description Last Updated Heart Attack 03/2021 [facility] 1 07/09/2020 A recent immunization for flu 05/06/2020 Patient gave verbal consent for teleheal th 08/31/2019 History of abnormal electrocardiogram History of asthma 07/31/2018 History of cardiovascular disorder 07/31 History of respiratory disorder 07/31/19 19 History of bipolar disorder NOS 07/31/19 19 History of depression 07/31/2018 History of psychiatric disorders 019 [facility] Work Phone: 1(641) 765-447812-04-2020 Reason for referral (narrative)* Date Encounter Description Provider Reason for Referral 05/06/20 [facility] Karla Clark STUDIO CAMERA OPERATOR Re ferral To Mental Health Team [facility] Work Phone: [phone]) 536-126604-04-2019 Evaluation note Includes: Assessments for all patient encounters Findings Encounter Date Assess routine adult history and physical (18 - 64 yrs) Established Patient with Karla Amber STUDIO CAMERA OPERATOR 09/04/2018 Overweight Established Patient with Karlajulius Clark CNP 09/04/2018 Z68.29 - Body mass index (BM I) 29.0-29.9, adult Established Patient with Karla Amber STUDIO CAMERA OPERATOR 09/04/2018 Assess vaginal candidiasis Established P atient with Karla Clark CNP 07/31/2018 [facility] Work Phone: Evaluation + Plan note No data available for this section [facility] History of breast biopsy Other postprocedural status documented in this encounter [facility] Work Phone: evaluation note Includes: Assessments for all patient encounters Findings Encounter Date Assess Colon screening Medical Establish ed Patient with Karla Amber STUDIO CAMERA OPERATOR 05/08/2021 Diabetes Risk Test Score was four score 05/08/2021 Medical Established Patient with Karla Amber STUDIO CAMERA OPERATOR 05/08/2021 Routine adult history and ph ysical (18-64 yrs) without abnormal findings Medical Established Patient with Karla Clark STUDIO CAMERA OPERATOR 05/08/2021 Z68.24 - Body mass index [BM I] 24.0-24.9, adult Medical Established Patient with Karla Clark [facility] 05/08/2021 Z68.24 - Body mass index [BM I] 24.0-24.9, adult Medical Established Patient with Karla Amber STUDIO CAMERA OPERATOR 06/17/2020 Overweight Medical Established Patient with Karla Amber STUDIO CAMERA OPERATOR 06/06/2020 Z68.25 - Body mass index [BM I] 25.0-25.9, adult Medical Established Patient with Karlajulius Clark STUDIO CAMERA OPERATOR 06/06/2020 Antiasthmatics [facility]-Ne w with Karlajulius Clark [facility] 05/06/2020 Assessment of tobacco use CPS Asthma Cli yash-New with Karlajulius Clark [facility] 05/06/2020 Body mass index [facility] Clinic-Ne w with Karlajulius Clark [facility] 05/06/2020 Chronic obstructive pulmonary disease CP S Asthma Clinic-New with Karlajulius Clark [facility] 05/06/2020 Overweight [facility] Clinic-Ne w with Karlajulius Clark [facility] 05/06/2020 Z11.4 - Encounter for screen ing for human immunodeficiency virus [HIV] [facility] with Karlajulius Clark [facility] 05/06/2020 Diabetes Risk Test Score was three score 03/31/2020 Medical Established Patient with Karla Amber [facility] 03/31/2020 Overweight Medical Established Patient with Karla Amber [facility] 03/31/2020 Z68.25 - Body mass index [BM I] 25.0-25.9, adult Medical Established Patient with Karla Amber [facility] 03/31/2020 Encounter for Immunization Nurse Visit with GaryNicolasa [facility] 03/14/2020 Body mass index Medical Established Patient with Karlajulius Clark [facility] 02/26/2020 Overweight Medical Established Patient with Karlajulius Clark [facility] 02/26/2020 Overweight Medical Established Patient with Karlajulius Clark [facility] 07/23/2019 Z68.27 - Body mass index (BM I) 27.0-27.9, adult Medical Established Patient with Karlajulius Clark STUDIO CAMERA OPERATOR 07/23/2019 Occasional asthma CPS- Asthma Clinic- F/U with Karlajulius Clark STUDIO CAMERA OPERATOR 06/05/2019 Overweight CPS- Asthma Clinic- F/U with Karlajulius Clark [facility] 06/05/2019 Z68.27 - Body mass index (BM I) 27.0-27.9 adult CPS- Asthma Clinic- F/U with Karla Clark STUDIO CAMERA OPERATOR 06/05/2019 Occasional asthma CPS Med Review with Karlajulius Clark [facility] 04/23/2019 Overweight CPS Med Review with Karla Clark [facility] 04/23/2019 Z68.27 - Body mass index (BM I) 27.0-27.9 adult CPS Med Review with Karla Clark STUDIO CAMERA OPERATOR 04/23/2019 Acute pharyngitis Medical Established Patient with Brandy Kelley STUDIO CAMERA OPERATOR 04/15/2019 Asthmatic bronchitis with ac atka exacerbation Medical Established Patient with Brandy Kelley STUDIO CAMERA OPERATOR 04/15/2019 Fagerstrom Score was two Medical Establi shed Patient with Brandy Kelley STUDIO CAMERA OPERATOR 04/15/2019 PHQ-9: total score was three 04/15/2019 Medical Established Patient with Brandy Kelley STUDIO CAMERA OPERATOR 04/15/2019 Body mass index Medical Established Patient with Karla Clark [facility] 03/05/2019 Diabetes Risk Test Score was three score Medical Established Patient with Karla Clark [facility] 03/05/2019 Overweight Medical Established Patient with Karlajulius Clark [facility] 03/05/2019 Z68.28 - Body mass index (BM I) 28.0-28.9, adult Medical Established Patient with Karla Clark [facility] 12/22/2018 Assess routine adult history and physical (18 - 64 yrs) Medical Established Patient with Karla Amber [facility] 11/06/2018 Overweight Medical Established Patient with Karlajulius Clark [facility] 11/06/2018 Z68.28 - Body mass index (BM I) 28.0-28.9, adult Medical Established Patient with Karlajulius Clark STUDIO CAMERA OPERATOR 11/06/2018 Assess dysphagia Medical Established Patient with Karla Clark [facility] 09/11/2018 Assess routine adult history and physical (18 - 64 yrs) Medical Established Patient with Karla Clark [facility] 09/11/2018 Assess primary insomnia with sleep apnea Medical Established Patient with Karla Clark [facility] 09/04/2018 Assess routine adult history and physical (18 - 64 yrs) Medical Established Patient with Karla Amber [facility] 09/04/2018 Overweight Medical Established Patient with Karla Clark [facility] 09/04/2018 Z68.29 - Body mass index (BM I) 29.0-29.9, adult Medical Established Patient with Karla Clark STUDIO CAMERA OPERATOR 09/04/2018 Assess vaginal candidiasis Medical Estab lished Patient with Karla Clark STUDIO CAMERA OPERATOR 07/31/2018 [facility] Work Phone: Evaluation note* Diagnosis Pre-procedure lab exam Pre-procedural laboratory examination documented in this encounter [facility] Work Phone: evaluation note Includes: Assessments for all patient encounters Findings Encounter Date Assess dysphagia Established Patient with Karla Amber STUDIO CAMERA OPERATOR 09/11/2018 Assess routine adult history and physical (18 - 64 yrs) Established Patient with Karla Clark CNP 09/11/2018 Assess primary insomnia with sleep apnea Established Patient with Karla Clark CNP 09/04/2018 Assess routine adult history and physical (18 - 64 yrs) Established Patient with Karla Amber STUDIO CAMERA OPERATOR 09/04/2018 Overweight Established Patient with Karla Clark CNP 09/04/2018 Z68.29 - Body mass index (BM I) 29.0-29.9, adult Established Patient with Karla Clark STUDIO CAMERA OPERATOR 09/04/2018 Assess vaginal candidiasis Established P atient with Karla Amber CROOKS 07/31/2018 [facility] Work Phone: Evaluation note Includes: Assessments for all patient encounters Findings Encounter Date PLAN Medical Established Patient with Don Pino MD 11/03/2021 Abnormal electrocardiogram Medical Estab lished Patient with Don Pino MD 11/03/2021 Z68.24 - Body mass index [BM I] 24.0-24.9, adult Medical Established Patient with Don Pino MD 11/03/2021 Cough Medical Established Patient with Karlajulius Clark CNP 07/28/2021 Intervention and counseling on cessation of tobacco use, 3-10 minutes Discussed medication and nicotine replacement for tobacco cessation Medical Established Patient with Karla Amber CROOKS 07/28/2021 Nicotine dependence Medical Established Patient with Karlajulius Clark CNP 07/28/2021 Z68.24 - Body mass index [BM I] 24.0-24.9, adult Medical Established Patient with Karla Amber CROOKS 07/28/2021 Assess Colon screening Medical Establish ed Patient with Karla Amber CROOKS 05/08/2021 Diabetes Risk Test Score was four score 05/08/2021 Medical Established Patient with Karla Amber CROOKS 05/08/2021 Routine adult history and ph ysical (18-64 yrs) without abnormal findings Medical Established Patient with Karla Amber CROOKS 05/08/2021 Z68.24 - Body mass index [BM I] 24.0-24.9, adult Medical Established Patient with Karla Amber CROOKS 05/08/2021 Z68.24 - Body mass index [BM I] 24.0-24.9, adult Medical Established Patient with Karla Amber STUDIO CAMERA OPERATOR 06/17/2020 Overweight Medical Established Patient with Karlajulius Clark STUDIO CAMERA OPERATOR 06/06/2020 Z68.25 - Body mass index [BM I] 25.0-25.9, adult Medical Established Patient with Karlajulius Clark STUDIO CAMERA OPERATOR 06/06/2020 Antiasthmatics [facility] w with Karlajulius Clark STUDIO CAMERA OPERATOR 05/06/2020 Assessment of tobacco use [facility]-New with Karlajulius Clark STUDIO CAMERA OPERATOR 05/06/2020 Body mass index [facility]-Ne w with Karlajulius Clark STUDIO CAMERA OPERATOR 05/06/2020 Chronic obstructive pulmonary disease CP S [facility]-New with Karlajulius Clark STUDIO CAMERA OPERATOR 05/06/2020 Overweight [facility]-Ne w with Karlajulius Clark [facility] 05/06/2020 Z11.4 - Encounter for screen ing for human immunodeficiency virus [HIV] [facility]-New with Karlajulius Clark STUDIO CAMERA OPERATOR 05/06/2020 Diabetes Risk Test Score was three score 03/31/2020 Medical Established Patient with Karlajulius Clark [facility] 03/31/2020 Overweight Medical Established Patient with Karla Amber [facility] 03/31/2020 Z68.25 - Body mass index [BM I] 25.0-25.9, adult Medical Established Patient with Karla Amber [facility] 03/31/2020 Encounter for Immunization Nurse Visit with GaryNicolasa [facility] 03/14/2020 Body mass index Medical Established Patient with Karlajulius Clark STUDIO CAMERA OPERATOR 02/26/2020 Overweight Medical Established Patient with Karlajulius Clark STUDIO CAMERA OPERATOR 02/26/2020 Overweight Medical Established Patient with Karlajulius Clark STUDIO CAMERA OPERATOR 07/23/2019 Z68.27 - Body mass index (BM I) 27.0-27.9, adult Medical Established Patient with Karlajulius Clark STUDIO CAMERA OPERATOR 07/23/2019 Occasional asthma [facility]- [facility] Clinic- F/U with Karla Clark STUDIO CAMERA OPERATOR 06/05/2019 Overweight [facility]- [facility]- F/U with Karlajulius Clark STUDIO CAMERA OPERATOR 06/05/2019 Z68.27 - Body mass index (BM I) 27.0-27.9 adult CPS- [facility] Clinic- F/U with Karla Clark STUDIO CAMERA OPERATOR 06/05/2019 Occasional asthma CPS Med Review with Karla Clark STUDIO CAMERA OPERATOR 04/23/2019 Overweight CPS Med Review with Karla Clark [facility] 04/23/2019 Z68.27 - Body mass index (BM I) 27.0-27.9 adult CPS Med Review with Karla Clark [facility] 04/23/2019 Acute pharyngitis Medical Established Patient with Brandy Kelley STUDIO CAMERA OPERATOR 04/15/2019 Asthmatic bronchitis with ac atka exacerbation Medical Established Patient with Brandy Kelley STUDIO CAMERA OPERATOR 04/15/2019 Fagerstrom Score was two Medical Establi shed Patient with Brandy Kelley STUDIO CAMERA OPERATOR 04/15/2019 PHQ-9: total score was three 04/15/2019 Medical Established Patient with Brandy Kelley [facility] 04/15/2019 Body mass index Medical Established Patient with Karla Clark [facility] 03/05/2019 Diabetes Risk Test Score was three score Medical Established Patient with Karla Clark [facility] 03/05/2019 Overweight Medical Established Patient with Karla Clark [facility] 03/05/2019 Z68.28 - Body mass index (BM I) 28.0-28.9, adult Medical Established Patient with Karla Clark [facility] 12/22/2018 Assess routine adult history and physical (18 - 64 yrs) Medical Established Patient with Karla Clark [facility] 11/06/2018 Overweight Medical Established Patient with Karla Clark [facility] 11/06/2018 Z68.28 - Body mass index (BM I) 28.0-28.9, adult Medical Established Patient with Karla Clark [facility] 11/06/2018 Assess dysphagia Medical Established Patient with Karla Clark [facility] 09/11/2018 Assess routine adult history and physical (18 - 64 yrs) Medical Established Patient with Karla Clark [facility] 09/11/2018 Assess primary insomnia with sleep apnea Medical Established Patient with Karla Clark [facility] 09/04/2018 Assess routine adult history and physical (18 - 64 yrs) Medical Established Patient with Karla Clark [facility] 09/04/2018 Overweight Medical Established Patient with Karla Clark [facility] 09/04/2018 Z68.29 - Body mass index (BM I) 29.0-29.9, adult Medical Established Patient with Karla Clark [facility] 09/04/2018 Assess vaginal candidiasis Medical Estab lished Patient with Karla Clark [facility] 07/31/2018 [facility] Work Phone: Evaluation note* Diagnosis Pre-operative clearance Preoperative examination, unspecified Abnormal EKG Nonspecific abnormal electrocardiogram (ECG) (EKG) History of NH (myocardial infarction) Old myocardial infarction documented in this encounter CHARLY ALMEIDA [employer] Work Phone: evaluation note Includes: Assessments for all patient encounters Findings Encounter Date [H92.02 - Otalgia, left ear] earache Med ical Established Patient with Karla Clark STUDIO CAMERA OPERATOR 06/18/2022 Last Documented On 3 12:11PM ; [facility] [M79.604 - Pain in right leg ] pain in right leg Medical Established Patient with Karlajulius Clark STUDIO CAMERA OPERATOR 06/18/2022 Last Documented On 3 12:11PM ; [facility] [Z68.24 - Body mass index [B NH] 24.0-24.9, adult] assessment of body mass index Medical Established Patient with Karla Clark STUDIO CAMERA OPERATOR 06/18/2022 Last Documented On 3 12:11PM ; [facility] Assessment of tobacco use Medical Establ ished Patient with Karlajulius Floresen STUDIO CAMERA OPERATOR 06/18/2022 Last Documented On 3 12:11PM ; [facility] Diabetes Risk Test Score was four score 06/18/2022 Medical Established Patient with Karla Floresen STUDIO CAMERA OPERATOR 06/18/2022 Last Documented On 3 12:11PM ; [facility] Schizoaffective disorder Established Patient with Yin Feliz LPCC-S 03/20/2022 Last Documented On 2 12:13AM ; [facility] No cough Medical Established Patient with Karla Floresen STUDIO CAMERA OPERATOR 12/20/2021 Last Documented On 2 3:12PM ; [facility] Visit for: screening for hum an immunodeficiency virus Medical Established Patient with Karla Floresen STUDIO CAMERA OPERATOR 12/20/2021 Last Documented On 2 3:12PM ; [facility] Z68.24 - Body mass index [BM I] 24.0-24.9, adult Medical Established Patient with Karla Amber STUDIO CAMERA OPERATOR 12/20/2021 Last Documented On 2 3:12PM ; [facility] Bipolar disorder NOS Established Patient with Yin Feliz LPCC-S 11/03/2021 Last Documented On 2 7:00PM ; [facility] Bipolar schizoaffective disorder BH Esta blished Patient with Yin Feliz LPCC-S 11/03/2021 Last Documented On 2 7:00PM ; [facility] PLAN Medical Established Patient with Don Pino MD 11/03/2021 Last Documented On 2 10:40AM ; [facility] Abnormal electrocardiogram Medical Estab lished Patient with Don Pino MD 11/03/2021 Last Documented On 2 10:40AM ; [facility] Z68.24 - Body mass index [BM I] 24.0-24.9, adult Medical Established Patient with Don Pino MD 11/03/2021 Last Documented On 2 10:40AM ; [facility] Cough Medical Established Patient with Karla Amber STUDIO CAMERA OPERATOR 07/28/2021 Last Documented On 2 2:01PM ; [facility] Intervention and counseling on cessation of tobacco use, 3-10 minutes Discussed medication and nicotine replacement for tobacco cessation Medical Established Patient with Karla Amber STUDIO CAMERA OPERATOR 07/28/2021 Last Documented On 2 2:01PM ; [facility] Nicotine dependence Medical Established Patient with Karla Amber STUDIO CAMERA OPERATOR 07/28/2021 Last Documented On 2 2:01PM ; [facility] Z68.24 - Body mass index [BM I] 24.0-24.9, adult Medical Established Patient with Karla Amber STUDIO CAMERA OPERATOR 07/28/2021 Last Documented On 2 2:01PM ; [facility] Assess Colon screening Medical Established Patie nt with Karla Amber STUDIO CAMERA OPERATOR 05/08/2021 Last Documented On 1 10:59AM ; [facility] Diabetes Risk Test Score was four score 05/08/2021 Medical Established Patient with Karla Amber STUDIO CAMERA OPERATOR 05/08/2021 Last Documented On 1 10:59AM ; [facility] Routine adult history and ph ysical (18-64 yrs) without abnormal findings Medical Established Patient with Karla Amber STUDIO CAMERA OPERATOR 05/08/2021 Last Documented On 1 10:59AM ; [facility] Z68.24 - Body mass index [BM I] 24.0-24.9, adult Medical Established Patient with Karla Amber STUDIO CAMERA OPERATOR 05/08/2021 Last Documented On 1 10:59AM ; [facility] Z68.24 - Body mass index [BM I] 24.0-24.9, adult Medical Established Patient with Karla Amber STUDIO CAMERA OPERATOR 06/17/2020 Last Documented On 1 10:30AM ; [facility] Overweight Medical Established Patient with Karla Amber STUDIO CAMERA OPERATOR 06/06/2020 Last Documented On 1 2:06PM ; [facility] Z68.25 - Body mass index [BM I] 25.0-25.9, adult Medical Established Patient with Karla Amber STUDIO CAMERA OPERATOR 06/06/2020 Last Documented On 1 2:06PM ; [facility] Antiasthmatics [facility] Asthma Clinic-New with Karla Amber STUDIO CAMERA OPERATOR 05/06/2020 Last Documented On 0 7:27PM ; [facility] Assessment of tobacco use [facility] Asthma Clinic-New with Karla Amber STUDIO CAMERA OPERATOR 05/06/2020 Last Documented On 0 7:27PM ; [facility] Body mass index [facility] Asthma Clinic-New with Karla Amber STUDIO CAMERA OPERATOR 05/06/2020 Last Documented On 0 7:27PM ; [facility] Chronic obstructive pulmonary disease S [facility]-New with Karla Amber STUDIO CAMERA OPERATOR 05/06/2020 Last Documented On 0 7:27PM ; [facility] Overweight [facility]-New with Karla Amber STUDIO CAMERA OPERATOR 05/06/2020 Last Documented On 0 7:27PM ; [facility] Z11.4 - Encounter for screen ing for human immunodeficiency virus [HIV] [facility]-New with Karla Amber STUDIO CAMERA OPERATOR 05/06/2020 Last Documented On 0 7:27PM ; [facility] Diabetes Risk Test Score was three score 03/31/2020 Medical Established Patient with Karla Amber STUDIO CAMERA OPERATOR 03/31/2020 Last Documented On 0 3:22PM ; [facility] Overweight Medical Established Patient with Karla Amber STUDIO CAMERA OPERATOR 03/31/2020 Last Documented On 0 3:22PM ; [facility] Z68.25 - Body mass index [BM I] 25.0-25.9, adult Medical Established Patient with Karla Floresen STUDIO CAMERA OPERATOR 03/31/2020 Last Documented On 0 3:22PM ; [facility] Encounter for Immunization Nurse Visit with Gary Clark STUDIO CAMERA OPERATOR 03/14/2020 Last Documented On 0 5:11PM ; [facility] Body mass index Medical Established Patient with Karla Floresen STUDIO CAMERA OPERATOR 02/26/2020 Last Documented On 0 1:18PM ; [facility] Overweight Medical Established Patient with Karlajulius Floresen STUDIO CAMERA OPERATOR 02/26/2020 Last Documented On 0 1:18PM ; [facility] Overweight Medical Established Patient with Karla Floresen STUDIO CAMERA OPERATOR 07/23/2019 Last Documented On 0 2:33PM ; [facility] Z68.27 - Body mass index (BM I) 27.0-27.9, adult Medical Established Patient with Karla Clark STUDIO CAMERA OPERATOR 07/23/2019 Last Documented On 0 2:33PM ; [facility] Occasional asthma CPS- Asthma Clinic- F/U with A french Clark STUDIO CAMERA OPERATOR 06/05/2019 Last Documented On 0 7:04PM ; [facility] Overweight CPS- [facility] Clinic- F/U with Alta Floresen STUDIO CAMERA OPERATOR 06/05/2019 Last Documented On 0 7:04PM ; [facility] Z68.27 - Body mass index (BM I) 27.0-27.9 adult CPS- [facility] Clinic- F/U with Karla Floresen STUDIO CAMERA OPERATOR 06/05/2019 Last Documented On 0 7:04PM ; [facility] Occasional asthma CPS Med Review with Karla Flores en STUDIO CAMERA OPERATOR 04/23/2019 Last Documented On 9 4:01PM ; [facility] Overweight CPS Med Review with Karla Floresen STUDIO CAMERA OPERATOR 04/23/2019 Last Documented On 9 4:01PM ; [facility] Z68.27 - Body mass index (BM I) 27.0-27.9 adult CPS Med Review with Karla Amber STUDIO CAMERA OPERATOR 04/23/2019 Last Documented On 9 4:01PM ; [facility] Acute pharyngitis Medical Established Patient wi th Brandy Kelley STUDIO CAMERA OPERATOR 04/15/2019 Last Documented On 9 12:31PM ; [facility] Asthmatic bronchitis with ac atka exacerbation Medical Established Patient with Brandy Warren STUDIO CAMERA OPERATOR 04/15/2019 Last Documented On 9 12:31PM ; [facility] Fagerstrom Score was two Medical Established Pat ient with Brandy Warren STUDIO CAMERA OPERATOR 04/15/2019 Last Documented On 9 12:31PM ; [facility] PHQ-9: total score was three 04/15/2019 Medical Established Patient with Brandy Warren STUDIO CAMERA OPERATOR 04/15/2019 Last Documented On 9 12:31PM ; [facility] Body mass index Medical Established Patient with Karla Amber STUDIO CAMERA OPERATOR 03/05/2019 Last Documented On 9 10:27AM ; [facility] Diabetes Risk Test Score was three score Medical Established Patient with Karla Amber STUDIO CAMERA OPERATOR 03/05/2019 Last Documented On 9 10:27AM ; [facility] Overweight Medical Established Patient with Karla Amber STUDIO CAMERA OPERATOR 03/05/2019 Last Documented On 9 10:27AM ; [facility] Z68.28 - Body mass index (BM I) 28.0-28.9, adult Medical Established Patient with Karla Amber STUDIO CAMERA OPERATOR 12/22/2018 Last Documented On 9 10:32AM ; [facility] Assess routine adult history and physical (18 - 64 yrs) Medical Established Patient with Karla Amber STUDIO CAMERA OPERATOR 11/06/2018 Last Documented On 9 2:26PM ; [facility] Overweight Medical Established Patient with Karla Amber STUDIO CAMERA OPERATOR 11/06/2018 Last Documented On 9 2:26PM ; [facility] Z68.28 - Body mass index (BM I) 28.0-28.9, adult Medical Established Patient with Karla Amber STUDIO CAMERA OPERATOR 11/06/2018 Last Documented On 9 2:26PM ; [facility] Assess dysphagia Medical Established Patient wit h Karla Clark STUDIO CAMERA OPERATOR 09/11/2018 Last Documented On 9 10:53AM ; [facility] Assess routine adult history and physical (18 - 64 yrs) Medical Established Patient with Karla Amber STUDIO CAMERA OPERATOR 09/11/2018 Last Documented On 9 10:53AM ; [facility] Assess primary insomnia with sleep apnea Medical Established Patient with Karla Amber STUDIO CAMERA OPERATOR 09/04/2018 Last Documented On 9 2:23PM ; [facility] Assess routine adult history and physical (18 - 64 yrs) Medical Established Patient with Karla Amber STUDIO CAMERA OPERATOR 09/04/2018 Last Documented On 9 2:23PM ; [facility] Overweight Medical Established Patient with Karla Amber STUDIO CAMERA OPERATOR 09/04/2018 Last Documented On 9 2:23PM ; [facility] Z68.29 - Body mass index (BM I) 29.0-29.9, adult Medical Established Patient with Karlajulius Clark STUDIO CAMERA OPERATOR 09/04/2018 Last Documented On 9 2:23PM ; [facility] Assess vaginal candidiasis Medical Estab lished Patient with Karla Amber STUDIO CAMERA OPERATOR 07/31/2018 Last Documented On 9 2:12PM ; [facility] Work Phone: Evaluation note* Diagnosis Cutaneous candidiasis Candidiasis of skin and nails Screening for malignant neoplasm of cervix Screening for malignant neoplasm of the cervix documented in this encounter CHARLY JUAN PABLO [facility] Work Phone: evaluation note Includes: Assessments for all patient encounters Findings Encounter Date [M25.569 - Pain in unspecifi ed knee] arthralgia of knee / patella / tibia / fibula Medical Established Patient with Karla Clark STUDIO CAMERA OPERATOR 08/27/2022 Last Documented On 3 8:56AM ; [facility] [Z68.24 - Body mass index [B NH] 24.0-24.9, adult] assessment of body mass index Medical Established Patient with Karlajulius Clark STUDIO CAMERA OPERATOR 08/27/2022 Last Documented On 3 8:56AM ; [facility] Intervention and counseling on cessation of tobacco use, 3-10 minutes Discussed medication and nicotine replacement for tobacco cessation Medical Established Patient with Karla Clark CNP 08/27/2022 Last Documented On 3 8:56AM ; [facility] Nicotine dependence Medical Established Patient with Karla Clark STUDIO CAMERA OPERATOR 08/27/2022 Last Documented On 3 8:56AM ; [facility] Visit for routine adult H&P without abnormal findings Medical Established Patient with Karla Clark CNP 08/27/2022 Last Documented On 3 8:56AM ; [facility] [H92.02 - Otalgia, left ear] earache Med ical Established Patient with Karla Clark STUDIO CAMERA OPERATOR 06/18/2022 Last Documented On 3 12:11PM ; [facility] [M79.604 - Pain in right leg ] pain in right leg Medical Established Patient with Karla Clark CNP 06/18/2022 Last Documented On 3 12:11PM ; [facility] [Z68.24 - Body mass index [B NH] 24.0-24.9, adult] assessment of body mass index Medical Established Patient with Karla Clark STUDIO CAMERA OPERATOR 06/18/2022 Last Documented On 3 12:11PM ; [facility] Assessment of tobacco use Medical Establ ished Patient with Karla Clark STUDIO CAMERA OPERATOR 06/18/2022 Last Documented On 3 12:11PM ; [facility] Diabetes Risk Test Score was four score 06/18/2022 Medical Established Patient with Karla Clark STUDIO CAMERA OPERATOR 06/18/2022 Last Documented On 3 12:11PM ; [facility] Schizoaffective disorder Established Patient with Yin Feliz LPC-S 03/20/2022 Last Documented On 2 12:13AM ; [facility] No cough Medical Established Patient with Karla Clark STUDIO CAMERA OPERATOR 12/20/2021 Last Documented On 2 3:12PM ; [facility] Visit for: screening for hum an immunodeficiency virus Medical Established Patient with Karla Clark STUDIO CAMERA OPERATOR 12/20/2021 Last Documented On 2 3:12PM ; [facility] Z68.24 - Body mass index [BM I] 24.0-24.9, adult Medical Established Patient with Karla Amber STUDIO CAMERA OPERATOR 12/20/2021 Last Documented On 2 3:12PM ; [facility] Bipolar disorder NOS BH Established Patient with Yin Feliz LPCC-S 11/03/2021 Last Documented On 2 7:00PM ; [facility] Bipolar schizoaffective disorder BH Esta blished Patient with Yin Feliz LPCC-S 11/03/2021 Last Documented On 2 7:00PM ; [facility] PLAN Medical Established Patient with Don Pino MD 11/03/2021 Last Documented On 2 10:40AM ; [facility] Abnormal electrocardiogram Medical Estab lished Patient with Don Pino MD 11/03/2021 Last Documented On 2 10:40AM ; [facility] Z68.24 - Body mass index [BM I] 24.0-24.9, adult Medical Established Patient with Don Pino MD 11/03/2021 Last Documented On 2 10:40AM ; [facility] Cough Medical Established Patient with Karla Amber STUDIO CAMERA OPERATOR 07/28/2021 Last Documented On 2 2:01PM ; [facility] Intervention and counseling on cessation of tobacco use, 3-10 minutes Discussed medication and nicotine replacement for tobacco cessation Medical Established Patient with Karla Amber STUDIO CAMERA OPERATOR 07/28/2021 Last Documented On 2 2:01PM ; [facility] Nicotine dependence Medical Established Patient with Karla Amber STUDIO CAMERA OPERATOR 07/28/2021 Last Documented On 2 2:01PM ; [facility] Z68.24 - Body mass index [BM I] 24.0-24.9, adult Medical Established Patient with Karla Amber STUDIO CAMERA OPERATOR 07/28/2021 Last Documented On 2 2:01PM ; [facility] Assess Colon screening Medical Established Patie nt with Karla Amber STUDIO CAMERA OPERATOR 05/08/2021 Last Documented On 1 10:59AM ; [facility] Diabetes Risk Test Score was four score 05/08/2021 Medical Established Patient with Karla Amber STUDIO CAMERA OPERATOR 05/08/2021 Last Documented On 1 10:59AM ; [facility] Routine adult history and ph ysical (18-64 yrs) without abnormal findings Medical Established Patient with Karla Amber STUDIO CAMERA OPERATOR 05/08/2021 Last Documented On 1 10:59AM ; [facility] Z68.24 - Body mass index [BM I] 24.0-24.9, adult Medical Established Patient with Karla Amber STUDIO CAMERA OPERATOR 05/08/2021 Last Documented On 1 10:59AM ; [facility] Z68.24 - Body mass index [BM I] 24.0-24.9, adult Medical Established Patient with Karla Amber STUDIO CAMERA OPERATOR 06/17/2020 Last Documented On 1 10:30AM ; [facility] Overweight Medical Established Patient with Karla Amber STUDIO CAMERA OPERATOR 06/06/2020 Last Documented On 1 2:06PM ; [facility] Z68.25 - Body mass index [BM I] 25.0-25.9, adult Medical Established Patient with Karla Amber STUDIO CAMERA OPERATOR 06/06/2020 Last Documented On 1 2:06PM ; [facility] Antiasthmatics [facility] Asthma Clinic-New with Karla Amber STUDIO CAMERA OPERATOR 05/06/2020 Last Documented On 0 7:27PM ; [facility] Assessment of tobacco use [facility] Asthma Clinic-New with Karla Amber STUDIO CAMERA OPERATOR 05/06/2020 Last Documented On 0 7:27PM ; [facility] Body mass index [facility] Asthma Clinic-New with Karla Amber STUDIO CAMERA OPERATOR 05/06/2020 Last Documented On 0 7:27PM ; [facility] Chronic obstructive pulmonary disease S [facility]hma Clinic-New with Karla Amber STUDIO CAMERA OPERATOR 05/06/2020 Last Documented On 0 7:27PM ; [facility] Overweight [facility] Asthma Clinic-New with Karla Amber STUDIO CAMERA OPERATOR 05/06/2020 Last Documented On 0 7:27PM ; [facility] Z11.4 - Encounter for screen ing for human immunodeficiency virus [HIV] CPS Asthma Clinic-New with Karla Clark STUDIO CAMERA OPERATOR 05/06/2020 Last Documented On 0 7:27PM ; [facility] Diabetes Risk Test Score was three score 03/31/2020 Medical Established Patient with Karla Clark STUDIO CAMERA OPERATOR 03/31/2020 Last Documented On 0 3:22PM ; [facility] Overweight Medical Established Patient with Karla Floresen STUDIO CAMERA OPERATOR 03/31/2020 Last Documented On 0 3:22PM ; [facility] Z68.25 - Body mass index [BM I] 25.0-25.9, adult Medical Established Patient with Karla Clark STUDIO CAMERA OPERATOR 03/31/2020 Last Documented On 0 3:22PM ; [facility] Encounter for Immunization Nurse Visit with Gary Clark STUDIO CAMERA OPERATOR 03/14/2020 Last Documented On 0 5:11PM ; [facility] Body mass index Medical Established Patient with Karla Floresen STUDIO CAMERA OPERATOR 02/26/2020 Last Documented On 0 1:18PM ; [facility] Overweight Medical Established Patient with Karla Floresen STUDIO CAMERA OPERATOR 02/26/2020 Last Documented On 0 1:18PM ; [facility] Overweight Medical Established Patient with Karla Floresen STUDIO CAMERA OPERATOR 07/23/2019 Last Documented On 0 2:33PM ; [facility] Z68.27 - Body mass index (BM I) 27.0-27.9, adult Medical Established Patient with Karla Floresen STUDIO CAMERA OPERATOR 07/23/2019 Last Documented On 0 2:33PM ; [facility] Occasional asthma CPS- Asthma Clinic- F/U with A french Clark STUDIO CAMERA OPERATOR 06/05/2019 Last Documented On 0 7:04PM ; [facility] Overweight CPS- Asthma Clinic- F/U with Aim julius Floresen STUDIO CAMERA OPERATOR 06/05/2019 Last Documented On 0 7:04PM ; [facility] Z68.27 - Body mass index (BM I) 27.0-27.9 adult CPS- Asthma Clinic- F/U with Karla Floresen STUDIO CAMERA OPERATOR 06/05/2019 Last Documented On 0 7:04PM ; [facility] Occasional asthma CPS Med Review with Karlajulius dinh STUDIO CAMERA OPERATOR 04/23/2019 Last Documented On 9 4:01PM ; [facility] Overweight CPS Med Review with Karlajulius Clark STUDIO CAMERA OPERATOR 04/23/2019 Last Documented On 9 4:01PM ; [facility] Z68.27 - Body mass index (BM I) 27.0-27.9 adult CPS Med Review with Karlajulius Clark STUDIO CAMERA OPERATOR 04/23/2019 Last Documented On 9 4:01PM ; [facility] Acute pharyngitis Medical Established Patient wi th Brandy Kelley STUDIO CAMERA OPERATOR 04/15/2019 Last Documented On 9 12:31PM ; [facility] Asthmatic bronchitis with ac atka exacerbation Medical Established Patient with Brandy Warren STUDIO CAMERA OPERATOR 04/15/2019 Last Documented On 9 12:31PM ; [facility] Fagerstrom Score was two Medical Established Pat ient with Brandy Serranoer STUDIO CAMERA OPERATOR 04/15/2019 Last Documented On 9 12:31PM ; [facility] PHQ-9: total score was three 04/15/2019 Medical Established Patient with Brandy Serranoer STUDIO CAMERA OPERATOR 04/15/2019 Last Documented On 9 12:31PM ; [facility] Body mass index Medical Established Patient with Karla Clark STUDIO CAMERA OPERATOR 03/05/2019 Last Documented On 9 10:27AM ; [facility] Diabetes Risk Test Score was three score Medical Established Patient with Karla Amber STUDIO CAMERA OPERATOR 03/05/2019 Last Documented On 9 10:27AM ; [facility] Overweight Medical Established Patient with Karla Amber STUDIO CAMERA OPERATOR 03/05/2019 Last Documented On 9 10:27AM ; [facility] Z68.28 - Body mass index (BM I) 28.0-28.9, adult Medical Established Patient with Karla Amber STUDIO CAMERA OPERATOR 12/22/2018 Last Documented On 9 10:32AM ; [facility] Assess routine adult history and physical (18 - 64 yrs) Medical Established Patient with Karla Amber STUDIO CAMERA OPERATOR 11/06/2018 Last Documented On 9 2:26PM ; [facility] Overweight Medical Established Patient with Karla Amber STUDIO CAMERA OPERATOR 11/06/2018 Last Documented On 9 2:26PM ; [facility] Z68.28 - Body mass index (BM I) 28.0-28.9, adult Medical Established Patient with Karlajulius Floresen STUDIO CAMERA OPERATOR 11/06/2018 Last Documented On 9 2:26PM ; [facility] Assess dysphagia Medical Established Patient wit h Karla Amber STUDIO CAMERA OPERATOR 09/11/2018 Last Documented On 9 10:53AM ; [facility] Assess routine adult history and physical (18 - 64 yrs) Medical Established Patient with Karla Amber STUDIO CAMERA OPERATOR 09/11/2018 Last Documented On 9 10:53AM ; [facility] Assess primary insomnia with sleep apnea Medical Established Patient with Karla Amber STUDIO CAMERA OPERATOR 09/04/2018 Last Documented On 9 2:23PM ; [facility] Assess routine adult history and physical (18 - 64 yrs) Medical Established Patient with Karla Amber STUDIO CAMERA OPERATOR 09/04/2018 Last Documented On 9 2:23PM ; [facility] Overweight Medical Established Patient with Karla Amber STUDIO CAMERA OPERATOR 09/04/2018 Last Documented On 9 2:23PM ; [facility] Z68.29 - Body mass index (BM I) 29.0-29.9, adult Medical Established Patient with Karlajulius Floresen STUDIO CAMERA OPERATOR 09/04/2018 Last Documented On 9 2:23PM ; [facility] Assess vaginal candidiasis Medical Estab lished Patient with Karla Amber STUDIO CAMERA OPERATOR 07/31/2018 Last Documented On 9 2:12PM ; [facility] Work Phone: Evaluation note Includes: Assessments for all patient encounters Findings Encounter Date [M25.569 - Pain in unspecifi ed knee] arthralgia of knee / patella / tibia / fibula Medical Established Patient with Karlajulius Clark STUDIO CAMERA OPERATOR 08/27/2022 Last Documented On 3 8:56AM ; [facility] [Z68.24 - Body mass index [B NH] 24.0-24.9, adult] assessment of body mass index Medical Established Patient with Karla Amber STUDIO CAMERA OPERATOR 08/27/2022 Last Documented On 3 8:56AM ; [facility] Intervention and counseling on cessation of tobacco use, 3-10 minutes Discussed medication and nicotine replacement for tobacco cessation Medical Established Patient with Karla Clark STUDIO CAMERA OPERATOR 08/27/2022 Last Documented On 3 8:56AM ; [facility] Nicotine dependence Medical Established Patient with Karla Clark STUDIO CAMERA OPERATOR 08/27/2022 Last Documented On 3 8:56AM ; [facility] Visit for routine adult H&P without abnormal findings Medical Established Patient with Karla Clark STUDIO CAMERA OPERATOR 08/27/2022 Last Documented On 3 8:56AM ; [facility] [H92.02 - Otalgia, left ear] earache Med ical Established Patient with Karla Clark STUDIO CAMERA OPERATOR 06/18/2022 Last Documented On 3 12:11PM ; [facility] [M79.604 - Pain in right leg ] pain in right leg Medical Established Patient with Karla Clark CNP 06/18/2022 Last Documented On 3 12:11PM ; [facility] [Z68.24 - Body mass index [B NH] 24.0-24.9, adult] assessment of body mass index Medical Established Patient with Karla Clark STUDIO CAMERA OPERATOR 06/18/2022 Last Documented On 3 12:11PM ; [facility] Assessment of tobacco use Medical Establ ished Patient with Karla Clark STUDIO CAMERA OPERATOR 06/18/2022 Last Documented On 3 12:11PM ; [facility] Diabetes Risk Test Score was four score 06/18/2022 Medical Established Patient with Karla Clark STUDIO CAMERA OPERATOR 06/18/2022 Last Documented On 3 12:11PM ; [facility] Schizoaffective disorder Established Patient with Yin Feliz [facility] 03/20/2022 Last Documented On 2 12:13AM ; [facility] No cough Medical Established Patient with Karla Clark STUDIO CAMERA OPERATOR 12/20/2021 Last Documented On 2 3:12PM ; [facility] Visit for: screening for hum an immunodeficiency virus Medical Established Patient with Karla Clark STUDIO CAMERA OPERATOR 12/20/2021 Last Documented On 2 3:12PM ; [facility] Z68.24 - Body mass index [BM I] 24.0-24.9, adult Medical Established Patient with Karla Clark STUDIO CAMERA OPERATOR 12/20/2021 Last Documented On 2 3:12PM ; [facility] Bipolar disorder NOS BH Established Patient with Yinluis Feliz [facility]-S 11/03/2021 Last Documented On 2 7:00PM ; [facility] Bipolar schizoaffective disorder BH Esta blished Patient with Yin Feliz [facility]-S 11/03/2021 Last Documented On 2 7:00PM ; [facility] PLAN Medical Established Patient with Don Pino MD 11/03/2021 Last Documented On 2 10:40AM ; [facility] Abnormal electrocardiogram Medical Estab lished Patient with Don Pino MD 11/03/2021 Last Documented On 2 10:40AM ; [facility] Z68.24 - Body mass index [BM I] 24.0-24.9, adult Medical Established Patient with Don Pino MD 11/03/2021 Last Documented On 2 10:40AM ; [facility] Cough Medical Established Patient with Karla Clark STUDIO CAMERA OPERATOR 07/28/2021 Last Documented On 2 2:01PM ; [facility] Intervention and counseling on cessation of tobacco use, 3-10 minutes Discussed medication and nicotine replacement for tobacco cessation Medical Established Patient with Karla Clark STUDIO CAMERA OPERATOR 07/28/2021 Last Documented On 2 2:01PM ; [facility] Nicotine dependence Medical Established Patient with Karla Clark STUDIO CAMERA OPERATOR 07/28/2021 Last Documented On 2 2:01PM ; [facility] Z68.24 - Body mass index [BM I] 24.0-24.9, adult Medical Established Patient with Karla Clark STUDIO CAMERA OPERATOR 07/28/2021 Last Documented On 2 2:01PM ; [facility] Assess Colon screening Medical Established Patie nt with Karla Amber STUDIO CAMERA OPERATOR 05/08/2021 Last Documented On 1 10:59AM ; [facility] Diabetes Risk Test Score was four score 05/08/2021 Medical Established Patient with Karla Amber STUDIO CAMERA OPERATOR 05/08/2021 Last Documented On 1 10:59AM ; [facility] Routine adult history and ph ysical (18-64 yrs) without abnormal findings Medical Established Patient with Karla Amber STUDIO CAMERA OPERATOR 05/08/2021 Last Documented On 1 10:59AM ; [facility] Z68.24 - Body mass index [BM I] 24.0-24.9, adult Medical Established Patient with Karla Amber STUDIO CAMERA OPERATOR 05/08/2021 Last Documented On 1 10:59AM ; [facility] Z68.24 - Body mass index [BM I] 24.0-24.9, adult Medical Established Patient with Karla Amber STUDIO CAMERA OPERATOR 06/17/2020 Last Documented On 1 10:30AM ; [facility] Overweight Medical Established Patient with Karla Amber STUDIO CAMERA OPERATOR 06/06/2020 Last Documented On 1 2:06PM ; [facility] Z68.25 - Body mass index [BM I] 25.0-25.9, adult Medical Established Patient with Karla Amber STUDIO CAMERA OPERATOR 06/06/2020 Last Documented On 1 2:06PM ; [facility] Antiasthmatics [facility] Asthma Clinic-New with Karla Amber STUDIO CAMERA OPERATOR 05/06/2020 Last Documented On 0 7:27PM ; [facility] Assessment of tobacco use [facility] Asthma Clinic-New with Karla Ambre STUDIO CAMERA OPERATOR 05/06/2020 Last Documented On 0 7:27PM ; [facility] Body mass index CPS Asthma Clinic-New with Karla Amber STUDIO CAMERA OPERATOR 05/06/2020 Last Documented On 0 7:27PM ; [facility] Chronic obstructive pulmonary disease CP S Asthma Clinic-New with Karla Amber STUDIO CAMERA OPERATOR 05/06/2020 Last Documented On 0 7:27PM ; [facility] Overweight [facility] Asthma Clinic-New with Karla Amber STUDIO CAMERA OPERATOR 05/06/2020 Last Documented On 0 7:27PM ; [facility] Z11.4 - Encounter for screen ing for human immunodeficiency virus [HIV] [facility] Asthma Clinic-New with Karla Floresen STUDIO CAMERA OPERATOR 05/06/2020 Last Documented On 0 7:27PM ; [facility] Diabetes Risk Test Score was three score 03/31/2020 Medical Established Patient with Karla Floresen STUDIO CAMERA OPERATOR 03/31/2020 Last Documented On 0 3:22PM ; [facility] Overweight Medical Established Patient with Karla Floresen STUDIO CAMERA OPERATOR 03/31/2020 Last Documented On 0 3:22PM ; [facility] Z68.25 - Body mass index [BM I] 25.0-25.9, adult Medical Established Patient with Karla Clark STUDIO CAMERA OPERATOR 03/31/2020 Last Documented On 0 3:22PM ; [facility] Encounter for Immunization Nurse Visit with Gary Clark STUDIO CAMERA OPERATOR 03/14/2020 Last Documented On 0 5:11PM ; [facility] Body mass index Medical Established Patient with Karla Floresen STUDIO CAMERA OPERATOR 02/26/2020 Last Documented On 0 1:18PM ; [facility] Overweight Medical Established Patient with Karlajulius Floresen STUDIO CAMERA OPERATOR 02/26/2020 Last Documented On 0 1:18PM ; [facility] Overweight Medical Established Patient with Karla Floresen STUDIO CAMERA OPERATOR 07/23/2019 Last Documented On 0 2:33PM ; [facility] Z68.27 - Body mass index (BM I) 27.0-27.9, adult Medical Established Patient with Karla Floresen STUDIO CAMERA OPERATOR 07/23/2019 Last Documented On 0 2:33PM ; [facility] Occasional asthma CPS- Asthma Clinic- F/U with A french Clark STUDIO CAMERA OPERATOR 06/05/2019 Last Documented On 0 7:04PM ; [facility] Overweight CPS- Asthma Clinic- F/U with Alta Clark STUDIO CAMERA OPERATOR 06/05/2019 Last Documented On 0 7:04PM ; [facility] Z68.27 - Body mass index (BM I) 27.0-27.9 adult CPS- Asthma Clinic- F/U with Karla Clark STUDIO CAMERA OPERATOR 06/05/2019 Last Documented On 0 7:04PM ; [facility] Occasional asthma CPS Med Review with Karlajulius dinh STUDIO CAMERA OPERATOR 04/23/2019 Last Documented On 9 4:01PM ; [facility] Overweight CPS Med Review with Karla Clark STUDIO CAMERA OPERATOR 04/23/2019 Last Documented On 9 4:01PM ; [facility] Z68.27 - Body mass index (BM I) 27.0-27.9 adult CPS Med Review with Karla Clark STUDIO CAMERA OPERATOR 04/23/2019 Last Documented On 9 4:01PM ; [facility] Acute pharyngitis Medical Established Patient wi th Brandy Kelley STUDIO CAMERA OPERATOR 04/15/2019 Last Documented On 9 12:31PM ; [facility] Asthmatic bronchitis with ac atka exacerbation Medical Established Patient with Brandy Warren STUDIO CAMERA OPERATOR 04/15/2019 Last Documented On 9 12:31PM ; [facility] Fagerstrom Score was two Medical Established Pat ient with Brandy Warren STUDIO CAMERA OPERATOR 04/15/2019 Last Documented On 9 12:31PM ; [facility] PHQ-9: total score was three 04/15/2019 Medical Established Patient with Brandy Warren STUDIO CAMERA OPERATOR 04/15/2019 Last Documented On 9 12:31PM ; [facility] Body mass index Medical Established Patient with Karla Clark STUDIO CAMERA OPERATOR 03/05/2019 Last Documented On 9 10:27AM ; [facility] Diabetes Risk Test Score was three score Medical Established Patient with Karlajulius Floresen STUDIO CAMERA OPERATOR 03/05/2019 Last Documented On 9 10:27AM ; [facility] Overweight Medical Established Patient with Karla Amber STUDIO CAMERA OPERATOR 03/05/2019 Last Documented On 9 10:27AM ; [facility] Z68.28 - Body mass index (BM I) 28.0-28.9, adult Medical Established Patient with Karla Clark STUDIO CAMERA OPERATOR 12/22/2018 Last Documented On 9 10:32AM ; [facility] Assess routine adult history and physical (18 - 64 yrs) Medical Established Patient with Karla Amber STUDIO CAMERA OPERATOR 11/06/2018 Last Documented On 9 2:26PM ; [facility] Overweight Medical Established Patient with Karla Amber STUDIO CAMERA OPERATOR 11/06/2018 Last Documented On 9 2:26PM ; [facility] Z68.28 - Body mass index (BM I) 28.0-28.9, adult Medical Established Patient with Karla Amber STUDIO CAMERA OPERATOR 11/06/2018 Last Documented On 9 2:26PM ; [facility] Assess dysphagia Medical Established Patient wit h Karla Amber STUDIO CAMERA OPERATOR 09/11/2018 Last Documented On 9 10:53AM ; [facility] Assess routine adult history and physical (18 - 64 yrs) Medical Established Patient with Karla Amber STUDIO CAMERA OPERATOR 09/11/2018 Last Documented On 9 10:53AM ; [facility] Assess primary insomnia with sleep apnea Medical Established Patient with Karla Amber STUDIO CAMERA OPERATOR 09/04/2018 Last Documented On 9 2:23PM ; [facility] Assess routine adult history and physical (18 - 64 yrs) Medical Established Patient with Karla Amber STUDIO CAMERA OPERATOR 09/04/2018 Last Documented On 9 2:23PM ; [facility] Overweight Medical Established Patient with Karla Amber STUDIO CAMERA OPERATOR 09/04/2018 Last Documented On 9 2:23PM ; [facility] Z68.29 - Body mass index (BM I) 29.0-29.9, adult Medical Established Patient with Karla Amber STUDIO CAMERA OPERATOR 09/04/2018 Last Documented On 9 2:23PM ; [facility] Assess vaginal candidiasis Medical Estab lished Patient with Karla Amber STUDIO CAMERA OPERATOR 07/31/2018 Last Documented On 9 2:12PM ; [facility] Work Phone: Evaluation note Includes: Assessments for all patient encounters Findings Encounter Date [M25.569 - Pain in unspecifi ed knee] arthralgia of knee / patella / tibia / fibula Medical Established Patient with Karla Amber STUDIO CAMERA OPERATOR 08/27/2022 Last Documented On 3 9:20AM ; [facility] [Z68.24 - Body mass index [B NH] 24.0-24.9, adult] assessment of body mass index Medical Established Patient with Karla Clark STUDIO CAMERA OPERATOR 08/27/2022 Last Documented On 3 9:20AM ; [facility] Intervention and counseling on cessation of tobacco use, 3-10 minutes Discussed medication and nicotine replacement for tobacco cessation Medical Established Patient with Karla Clark STUDIO CAMERA OPERATOR 08/27/2022 Last Documented On 3 9:20AM ; [facility] Nicotine dependence Medical Established Patient with Karla Clark STUDIO CAMERA OPERATOR 08/27/2022 Last Documented On 3 9:20AM ; [facility] Visit for routine adult H&P without abnormal findings Medical Established Patient with Karla Clark STUDIO CAMERA OPERATOR 08/27/2022 Last Documented On 3 9:20AM ; [facility] [H92.02 - Otalgia, left ear] earache Med ical Established Patient with Karla Clark STUDIO CAMERA OPERATOR 06/18/2022 Last Documented On 3 12:11PM ; [facility] [M79.604 - Pain in right leg ] pain in right leg Medical Established Patient with Karla Clark STUDIO CAMERA OPERATOR 06/18/2022 Last Documented On 3 12:11PM ; [facility] [Z68.24 - Body mass index [B NH] 24.0-24.9, adult] assessment of body mass index Medical Established Patient with Karla Clark STUDIO CAMERA OPERATOR 06/18/2022 Last Documented On 3 12:11PM ; [facility] Assessment of tobacco use Medical Establ ished Patient with Karla Clark STUDIO CAMERA OPERATOR 06/18/2022 Last Documented On 3 12:11PM ; [facility] Diabetes Risk Test Score was four score 06/18/2022 Medical Established Patient with Karla Clark STUDIO CAMERA OPERATOR 06/18/2022 Last Documented On 3 12:11PM ; [facility] Schizoaffective disorder Established Patient with Yin Feliz [facility] 03/20/2022 Last Documented On 2 12:13AM ; [facility] No cough Medical Established Patient with Karla Clark STUDIO CAMERA OPERATOR 12/20/2021 Last Documented On 2 3:12PM ; [facility] Visit for: screening for hum an immunodeficiency virus Medical Established Patient with Karlajulius Clark STUDIO CAMERA OPERATOR 12/20/2021 Last Documented On 2 3:12PM ; [facility] Z68.24 - Body mass index [BM I] 24.0-24.9, adult Medical Established Patient with Karla Clark STUDIO CAMERA OPERATOR 12/20/2021 Last Documented On 2 3:12PM ; [facility] Bipolar disorder NOS BH Established Patient with Yin Feliz [facility] 11/03/2021 Last Documented On 2 7:00PM ; [facility] Bipolar schizoaffective disorder BH Esta blished Patient with Yin Feliz [facility]-S 11/03/2021 Last Documented On 2 7:00PM ; [facility] PLAN Medical Established Patient with Don Pino MD 11/03/2021 Last Documented On 2 10:40AM ; [facility] Abnormal electrocardiogram Medical Estab lished Patient with Don Pino MD 11/03/2021 Last Documented On 2 10:40AM ; [facility] Z68.24 - Body mass index [BM I] 24.0-24.9, adult Medical Established Patient with Don Pino MD 11/03/2021 Last Documented On 2 10:40AM ; [facility] Cough Medical Established Patient with Karla Clark STUDIO CAMERA OPERATOR 07/28/2021 Last Documented On 2 2:01PM ; [facility] Intervention and counseling on cessation of tobacco use, 3-10 minutes Discussed medication and nicotine replacement for tobacco cessation Medical Established Patient with Karla Clark STUDIO CAMERA OPERATOR 07/28/2021 Last Documented On 2 2:01PM ; [facility] Nicotine dependence Medical Established Patient with Karla Amber STUDIO CAMERA OPERATOR 07/28/2021 Last Documented On 2 2:01PM ; [facility] Z68.24 - Body mass index [BM I] 24.0-24.9, adult Medical Established Patient with Karla Amber STUDIO CAMERA OPERATOR 07/28/2021 Last Documented On 2 2:01PM ; [facility] Assess Colon screening Medical Established Patie nt with Karla Amber STUDIO CAMERA OPERATOR 05/08/2021 Last Documented On 1 10:59AM ; [facility] Diabetes Risk Test Score was four score 05/08/2021 Medical Established Patient with Karla Amber STUDIO CAMERA OPERATOR 05/08/2021 Last Documented On 1 10:59AM ; [facility] Routine adult history and ph ysical (18-64 yrs) without abnormal findings Medical Established Patient with Karla Amber STUDIO CAMERA OPERATOR 05/08/2021 Last Documented On 1 10:59AM ; [facility] Z68.24 - Body mass index [BM I] 24.0-24.9, adult Medical Established Patient with Karla Amber STUDIO CAMERA OPERATOR 05/08/2021 Last Documented On 1 10:59AM ; [facility] Z68.24 - Body mass index [BM I] 24.0-24.9, adult Medical Established Patient with Karla Amber STUDIO CAMERA OPERATOR 06/17/2020 Last Documented On 1 10:30AM ; [facility] Overweight Medical Established Patient with Karla Amber STUDIO CAMERA OPERATOR 06/06/2020 Last Documented On 1 2:06PM ; [facility] Z68.25 - Body mass index [BM I] 25.0-25.9, adult Medical Established Patient with Karla Amber STUDIO CAMERA OPERATOR 06/06/2020 Last Documented On 1 2:06PM ; [facility] Antiasthmatics [facility] Asthma Clinic-New with Karla Amber STUDIO CAMERA OPERATOR 05/06/2020 Last Documented On 0 7:27PM ; [facility] Assessment of tobacco use [facility] Asthma Clinic-New with Karla Amber STUDIO CAMERA OPERATOR 05/06/2020 Last Documented On 0 7:27PM ; [facility] Body mass index [facility] Asthma Clinic-New with Karla Amber STUDIO CAMERA OPERATOR 05/06/2020 Last Documented On 0 7:27PM ; [facility] Chronic obstructive pulmonary disease S [facility] Clinic-New with Karla Amber STUDIO CAMERA OPERATOR 05/06/2020 Last Documented On 0 7:27PM ; [facility] Overweight CPS [facility] Clinic-New with Karla Floresen STUDIO CAMERA OPERATOR 05/06/2020 Last Documented On 0 7:27PM ; [facility] Z11.4 - Encounter for screen ing for human immunodeficiency virus [HIV] CPS [facility]-New with Karla Floersen STUDIO CAMERA OPERATOR 05/06/2020 Last Documented On 0 7:27PM ; [facility] Diabetes Risk Test Score was three score 03/31/2020 Medical Established Patient with Karlajulius Floresen STUDIO CAMERA OPERATOR 03/31/2020 Last Documented On 0 3:22PM ; [facility] Overweight Medical Established Patient with Karla Floresen STUDIO CAMERA OPERATOR 03/31/2020 Last Documented On 0 3:22PM ; [facility] Z68.25 - Body mass index [BM I] 25.0-25.9, adult Medical Established Patient with Karla Floresen STUDIO CAMERA OPERATOR 03/31/2020 Last Documented On 0 3:22PM ; [facility] Encounter for Immunization Nurse Visit with Gary Clark STUDIO CAMERA OPERATOR 03/14/2020 Last Documented On 0 5:11PM ; [facility] Body mass index Medical Established Patient with Karla Floresen STUDIO CAMERA OPERATOR 02/26/2020 Last Documented On 0 1:18PM ; [facility] Overweight Medical Established Patient with Karla Floresen STUDIO CAMERA OPERATOR 02/26/2020 Last Documented On 0 1:18PM ; [facility] Overweight Medical Established Patient with Karla Floresen STUDIO CAMERA OPERATOR 07/23/2019 Last Documented On 0 2:33PM ; [facility] Z68.27 - Body mass index (BM I) 27.0-27.9, adult Medical Established Patient with Karla Floresen STUDIO CAMERA OPERATOR 07/23/2019 Last Documented On 0 2:33PM ; [facility] Occasional asthma CPS- Asthma Clinic- F/U with A french Clark STUDIO CAMERA OPERATOR 06/05/2019 Last Documented On 0 7:04PM ; [facility] Overweight CPS- Asthma Clinic- F/U with Alta Floresen STUDIO CAMERA OPERATOR 06/05/2019 Last Documented On 0 7:04PM ; [facility] Z68.27 - Body mass index (BM I) 27.0-27.9 adult CPS- Asthma Clinic- F/U with Karla Clark STUDIO CAMERA OPERATOR 06/05/2019 Last Documented On 0 7:04PM ; [facility] Occasional asthma CPS Med Review with Karlajulius dinh STUDIO CAMERA OPERATOR 04/23/2019 Last Documented On 9 4:01PM ; [facility] Overweight CPS Med Review with Karlajulius Clark STUDIO CAMERA OPERATOR 04/23/2019 Last Documented On 9 4:01PM ; [facility] Z68.27 - Body mass index (BM I) 27.0-27.9 adult CPS Med Review with Karla Clark STUDIO CAMERA OPERATOR 04/23/2019 Last Documented On 9 4:01PM ; [facility] Acute pharyngitis Medical Established Patient wi th Brandy Serranoer [facility] 04/15/2019 Last Documented On 9 12:31PM ; [facility] Asthmatic bronchitis with ac atka exacerbation Medical Established Patient with Brandy Warren STUDIO CAMERA OPERATOR 04/15/2019 Last Documented On 9 12:31PM ; [facility] Fagerstrom Score was two Medical Established Pat ient with Brandy Warren STUDIO CAMERA OPERATOR 04/15/2019 Last Documented On 9 12:31PM ; [facility] PHQ-9: total score was three 04/15/2019 Medical Established Patient with Brandy Warren STUDIO CAMERA OPERATOR 04/15/2019 Last Documented On 9 12:31PM ; [facility] Body mass index Medical Established Patient with Karla Clark STUDIO CAMERA OPERATOR 03/05/2019 Last Documented On 9 10:27AM ; [facility] Diabetes Risk Test Score was three score Medical Established Patient with Karla Amber STUDIO CAMERA OPERATOR 03/05/2019 Last Documented On 9 10:27AM ; [facility] Overweight Medical Established Patient with Karla Amber STUDIO CAMERA OPERATOR 03/05/2019 Last Documented On 9 10:27AM ; [facility] Z68.28 - Body mass index (BM I) 28.0-28.9, adult Medical Established Patient with Karla Amber STUDIO CAMERA OPERATOR 12/22/2018 Last Documented On 9 10:32AM ; [facility] Assess routine adult history and physical (18 - 64 yrs) Medical Established Patient with Karla Amber STUDIO CAMERA OPERATOR 11/06/2018 Last Documented On 9 2:26PM ; [facility] Overweight Medical Established Patient with Karla Amber STUDIO CAMERA OPERATOR 11/06/2018 Last Documented On 9 2:26PM ; [facility] Z68.28 - Body mass index (BM I) 28.0-28.9, adult Medical Established Patient with Karla Amber STUDIO CAMERA OPERATOR 11/06/2018 Last Documented On 9 2:26PM ; [facility] Assess dysphagia Medical Established Patient wit h Karla Amber STUDIO CAMERA OPERATOR 09/11/2018 Last Documented On 9 10:53AM ; [facility] Assess routine adult history and physical (18 - 64 yrs) Medical Established Patient with Karla Amber STUDIO CAMERA OPERATOR 09/11/2018 Last Documented On 9 10:53AM ; [facility] Assess primary insomnia with sleep apnea Medical Established Patient with Karla Amber STUDIO CAMERA OPERATOR 09/04/2018 Last Documented On 9 2:23PM ; [facility] Assess routine adult history and physical (18 - 64 yrs) Medical Established Patient with Karla Amber STUDIO CAMERA OPERATOR 09/04/2018 Last Documented On 9 2:23PM ; [facility] Overweight Medical Established Patient with Karla Amber STUDIO CAMERA OPERATOR 09/04/2018 Last Documented On 9 2:23PM ; [facility] Z68.29 - Body mass index (BM I) 29.0-29.9, adult Medical Established Patient with Karla Amber STUDIO CAMERA OPERATOR 09/04/2018 Last Documented On 9 2:23PM ; [facility] Assess vaginal candidiasis Medical Estab lished Patient with Karla Amber STUDIO CAMERA OPERATOR 07/31/2018 Last Documented On 9 2:12PM ; [facility] Work Phone: Evaluation noteNo assessment information available [facility] Work Phone: Evaluation noteNo [facility] [employer] Other Evaluation note Includes: Assessments for all patient encounters Findings Encounter Date [J20.9 - Acute bronchitis, unspecified] acute bronchitis Medical Established Patient with Karla Clark CNP 11/19/2022 Last Documented On 3 10:15AM ; [facility] [M79.621 - Pain in right upp er arm] pain in upper arm Medical Established Patient with Karla Clark STUDIO CAMERA OPERATOR 11/19/2022 Last Documented On 3 10:15AM ; [facility] [Z68.23 - Body mass index [B NH] 23.0-23.9, adult] assessment of body mass index Medical Established Patient with Karla Clark STUDIO CAMERA OPERATOR 11/19/2022 Last Documented On 3 10:15AM ; [facility] [M79.601 - Pain in right arm ] pain in right arm Medical Established Patient with Karla Clark CNP 09/18/2022 Last Documented On 3 2:33PM ; [facility] [Z68.24 - Body mass index [B NH] 24.0-24.9, adult] assessment of body mass index Medical Established Patient with Karla Clark STUDIO CAMERA OPERATOR 09/18/2022 Last Documented On 3 2:33PM ; [facility] Assessment of tobacco use Medical Establ ished Patient with Karla Clark STUDIO CAMERA OPERATOR 09/18/2022 Last Documented On 3 2:33PM ; [facility] [M25.569 - Pain in unspecifi ed knee] arthralgia of knee / patella / tibia / fibula Medical Established Patient with Karla Clark STUDIO CAMERA OPERATOR 08/27/2022 Last Documented On 3 9:20AM ; [facility] [Z68.24 - Body mass index [B NH] 24.0-24.9, adult] assessment of body mass index Medical Established Patient with Karla Clark STUDIO CAMERA OPERATOR 08/27/2022 Last Documented On 3 9:20AM ; [facility] Intervention and counseling on cessation of tobacco use, 3-10 minutes Discussed medication and nicotine replacement for tobacco cessation Medical Established Patient with Karla Clark CNP 08/27/2022 Last Documented On 3 9:20AM ; [facility] Nicotine dependence Medical Established Patient with Karla Clark STUDIO CAMERA OPERATOR 08/27/2022 Last Documented On 3 9:20AM ; [facility] Visit for routine adult H&P without abnormal findings Medical Established Patient with Karla Clark STUDIO CAMERA OPERATOR 08/27/2022 Last Documented On 3 9:20AM ; [facility] [H92.02 - Otalgia, left ear] earache Med ical Established Patient with Karla Clark STUDIO CAMERA OPERATOR 06/18/2022 Last Documented On 3 12:11PM ; [facility] [M79.604 - Pain in right leg ] pain in right leg Medical Established Patient with Karla Clark STUDIO CAMERA OPERATOR 06/18/2022 Last Documented On 3 12:11PM ; [facility] [Z68.24 - Body mass index [B NH] 24.0-24.9, adult] assessment of body mass index Medical Established Patient with Karla Clark STUDIO CAMERA OPERATOR 06/18/2022 Last Documented On 3 12:11PM ; [facility] Assessment of tobacco use Medical Establ ished Patient with Karla Clark STUDIO CAMERA OPERATOR 06/18/2022 Last Documented On 3 12:11PM ; [facility] Diabetes Risk Test Score was four score 06/18/2022 Medical Established Patient with Karla Clark STUDIO CAMERA OPERATOR 06/18/2022 Last Documented On 3 12:11PM ; [facility] Schizoaffective disorder Established Patient with Yin Feliz [facility] 03/20/2022 Last Documented On 2 12:13AM ; [facility] No cough Medical Established Patient with Karla Clark STUDIO CAMERA OPERATOR 12/20/2021 Last Documented On 2 3:12PM ; [facility] Visit for: screening for hum an immunodeficiency virus Medical Established Patient with Karla Clark STUDIO CAMERA OPERATOR 12/20/2021 Last Documented On 2 3:12PM ; [facility] Z68.24 - Body mass index [BM I] 24.0-24.9, adult Medical Established Patient with Karla Amber STUDIO CAMERA OPERATOR 12/20/2021 Last Documented On 2 3:12PM ; [facility] Bipolar disorder NOS BH Established Patient with Yinluis Reedermons [facility] 11/03/2021 Last Documented On 2 7:00PM ; [facility] Bipolar schizoaffective disorder BH Esta blished Patient with Yin Feliz [facility] 11/03/2021 Last Documented On 2 7:00PM ; [facility] PLAN Medical Established Patient with Don Pino MD 11/03/2021 Last Documented On 2 10:40AM ; [facility] Abnormal electrocardiogram Medical Estab lished Patient with Don Pino MD 11/03/2021 Last Documented On 2 10:40AM ; [facility] Z68.24 - Body mass index [BM I] 24.0-24.9, adult Medical Established Patient with Don Pino MD 11/03/2021 Last Documented On 2 10:40AM ; [facility] Cough Medical Established Patient with Karla Amber STUDIO CAMERA OPERATOR 07/28/2021 Last Documented On 2 2:01PM ; [facility] Intervention and counseling on cessation of tobacco use, 3-10 minutes Discussed medication and nicotine replacement for tobacco cessation Medical Established Patient with Karla Amber STUDIO CAMERA OPERATOR 07/28/2021 Last Documented On 2 2:01PM ; [facility] Nicotine dependence Medical Established Patient with Karla Amber STUDIO CAMERA OPERATOR 07/28/2021 Last Documented On 2 2:01PM ; [facility] Z68.24 - Body mass index [BM I] 24.0-24.9, adult Medical Established Patient with Karla Amber STUDIO CAMERA OPERATOR 07/28/2021 Last Documented On 2 2:01PM ; [facility] Assess Colon screening Medical Established Patie nt with Karla Amber STUDIO CAMERA OPERATOR 05/08/2021 Last Documented On 1 10:59AM ; [facility] Diabetes Risk Test Score was four score 05/08/2021 Medical Established Patient with Karla Amber STUDIO CAMERA OPERATOR 05/08/2021 Last Documented On 1 10:59AM ; [facility] Routine adult history and ph ysical (18-64 yrs) without abnormal findings Medical Established Patient with Karla Amber STUDIO CAMERA OPERATOR 05/08/2021 Last Documented On 1 10:59AM ; [facility] Z68.24 - Body mass index [BM I] 24.0-24.9, adult Medical Established Patient with Karla Amber STUDIO CAMERA OPERATOR 05/08/2021 Last Documented On 1 10:59AM ; [facility] Z68.24 - Body mass index [BM I] 24.0-24.9, adult Medical Established Patient with Karla Amber STUDIO CAMERA OPERATOR 06/17/2020 Last Documented On 1 10:30AM ; [facility] Overweight Medical Established Patient with Karla Amber STUDIO CAMERA OPERATOR 06/06/2020 Last Documented On 1 2:06PM ; [facility] Z68.25 - Body mass index [BM I] 25.0-25.9, adult Medical Established Patient with Karla Amber STUDIO CAMERA OPERATOR 06/06/2020 Last Documented On 1 2:06PM ; [facility] Antiasthmatics CPS Asthma Clinic-New with Karla Amber STUDIO CAMERA OPERATOR 05/06/2020 Last Documented On 0 7:27PM ; [facility] Assessment of tobacco use CPS Ast[facility] Clinic-New with Karla Amber STUDIO CAMERA OPERATOR 05/06/2020 Last Documented On 0 7:27PM ; [facility] Body mass index CPS Asthma Clinic-New with Karla Amber STUDIO CAMERA OPERATOR 05/06/2020 Last Documented On 0 7:27PM ; [facility] Chronic obstructive pulmonary disease CP S Asthma Clinic-New with Karla Amber STUDIO CAMERA OPERATOR 05/06/2020 Last Documented On 0 7:27PM ; [facility] Overweight CPS Asthma Clinic-New with Karla Amber STUDIO CAMERA OPERATOR 05/06/2020 Last Documented On 0 7:27PM ; [facility] Z11.4 - Encounter for screen ing for human immunodeficiency virus [HIV] CPS [facility] Clinic-New with Karla Amber STUDIO CAMERA OPERATOR 05/06/2020 Last Documented On 0 7:27PM ; [facility] Diabetes Risk Test Score was three score 03/31/2020 Medical Established Patient with Karla Clark STUDIO CAMERA OPERATOR 03/31/2020 Last Documented On 0 3:22PM ; [facility] Overweight Medical Established Patient with Karla Floresen STUDIO CAMERA OPERATOR 03/31/2020 Last Documented On 0 3:22PM ; [facility] Z68.25 - Body mass index [BM I] 25.0-25.9, adult Medical Established Patient with Karla Clark STUDIO CAMERA OPERATOR 03/31/2020 Last Documented On 0 3:22PM ; [facility] Encounter for Immunization Nurse Visit with Gary Clark STUDIO CAMERA OPERATOR 03/14/2020 Last Documented On 0 5:11PM ; [facility] Body mass index Medical Established Patient with Karla Clark STUDIO CAMERA OPERATOR 02/26/2020 Last Documented On 0 1:18PM ; [facility] Overweight Medical Established Patient with Karla Floresen STUDIO CAMERA OPERATOR 02/26/2020 Last Documented On 0 1:18PM ; [facility] Overweight Medical Established Patient with Karla Clark STUDIO CAMERA OPERATOR 07/23/2019 Last Documented On 0 2:33PM ; [facility] Z68.27 - Body mass index (BM I) 27.0-27.9, adult Medical Established Patient with Karla Clark STUDIO CAMERA OPERATOR 07/23/2019 Last Documented On 0 2:33PM ; [facility] Occasional asthma CPS- Asthma Clinic- F/U with A french Clark STUDIO CAMERA OPERATOR 06/05/2019 Last Documented On 0 7:04PM ; [facility] Overweight CPS- Asthma Clinic- F/U with Alta Floresen STUDIO CAMERA OPERATOR 06/05/2019 Last Documented On 0 7:04PM ; [facility] Z68.27 - Body mass index (BM I) 27.0-27.9 adult CPS- Asthma Clinic- F/U with Karla Clark STUDIO CAMERA OPERATOR 06/05/2019 Last Documented On 0 7:04PM ; [facility] Occasional asthma CPS Med Review with Karla dinh STUDIO CAMERA OPERATOR 04/23/2019 Last Documented On 9 4:01PM ; [facility] Overweight CPS Med Review with Karlajulius Floresen STUDIO CAMERA OPERATOR 04/23/2019 Last Documented On 9 4:01PM ; [facility] Z68.27 - Body mass index (BM I) 27.0-27.9 adult CPS Med Review with Karlajulius Floresen STUDIO CAMERA OPERATOR 04/23/2019 Last Documented On 9 4:01PM ; [facility] Acute pharyngitis Medical Established Patient wi th Brandy Kelley STUDIO CAMERA OPERATOR 04/15/2019 Last Documented On 9 12:31PM ; [facility] Asthmatic bronchitis with ac atka exacerbation Medical Established Patient with Brandy Warren STUDIO CAMERA OPERATOR 04/15/2019 Last Documented On 9 12:31PM ; [facility] Fagerstrom Score was two Medical Established Pat ient with Brandy Warren STUDIO CAMERA OPERATOR 04/15/2019 Last Documented On 9 12:31PM ; [facility] PHQ-9: total score was three 04/15/2019 Medical Established Patient with Brandy Warren STUDIO CAMERA OPERATOR 04/15/2019 Last Documented On 9 12:31PM ; [facility] Body mass index Medical Established Patient with Karlajulius Floresen STUDIO CAMERA OPERATOR 03/05/2019 Last Documented On 9 10:27AM ; [facility] Diabetes Risk Test Score was three score Medical Established Patient with Karla Amber STUDIO CAMERA OPERATOR 03/05/2019 Last Documented On 9 10:27AM ; [facility] Overweight Medical Established Patient with Karla Amber STUDIO CAMERA OPERATOR 03/05/2019 Last Documented On 9 10:27AM ; [facility] Z68.28 - Body mass index (BM I) 28.0-28.9, adult Medical Established Patient with Karla Amber STUDIO CAMERA OPERATOR 12/22/2018 Last Documented On 9 10:32AM ; [facility] Assess routine adult history and physical (18 - 64 yrs) Medical Established Patient with Karla Amber STUDIO CAMERA OPERATOR 11/06/2018 Last Documented On 9 2:26PM ; [facility] Overweight Medical Established Patient with Karla Amber STUDIO CAMERA OPERATOR 11/06/2018 Last Documented On 9 2:26PM ; [facility] Z68.28 - Body mass index (BM I) 28.0-28.9, adult Medical Established Patient with Karla Clark STUDIO CAMERA OPERATOR 11/06/2018 Last Documented On 9 2:26PM ; [facility] Assess dysphagia Medical Established Patient wit h Karlajulius Floresen STUDIO CAMERA OPERATOR 09/11/2018 Last Documented On 9 10:53AM ; [facility] Assess routine adult history and physical (18 - 64 yrs) Medical Established Patient with Karla Amber STUDIO CAMERA OPERATOR 09/11/2018 Last Documented On 9 10:53AM ; [facility] Assess primary insomnia with sleep apnea Medical Established Patient with Karla Amber STUDIO CAMERA OPERATOR 09/04/2018 Last Documented On 9 2:23PM ; [facility] Assess routine adult history and physical (18 - 64 yrs) Medical Established Patient with Karla Amber STUDIO CAMERA OPERATOR 09/04/2018 Last Documented On 9 2:23PM ; [facility] Overweight Medical Established Patient with Karla Amber STUDIO CAMERA OPERATOR 09/04/2018 Last Documented On 9 2:23PM ; [facility] Z68.29 - Body mass index (BM I) 29.0-29.9, adult Medical Established Patient with Karlajulius Floresen STUDIO CAMERA OPERATOR 09/04/2018 Last Documented On 9 2:23PM ; [facility] Assess vaginal candidiasis Medical Estab lished Patient with Karla Amber STUDIO CAMERA OPERATOR 07/31/2018 Last Documented On 9 2:12PM ; [facility] Work Phone: Evaluation note Includes: Assessments for all patient encounters Findings Encounter Date [Z12.39 - Encounter for othe r screening for malignant neoplasm of breast] visit for: screening for malignant breast neoplasm Medical Established Patient with Aaron Whitaker STUDIO CAMERA OPERATOR 02/28/2023 Last Documented On 3 9:51AM ; [facility] [Z68.24 - Body mass index [B NH] 24.0-24.9, adult] assessment of body mass index Medical Established Patient with Aaron Campbellix STUDIO CAMERA OPERATOR 02/28/2023 Last Documented On 3 9:51AM ; [facility] Assessment of tobacco use Medical Establ ished Patient with Aaron Whitaker STUDIO CAMERA OPERATOR 02/28/2023 Last Documented On 3 9:51AM ; [facility] Chronic obstructive pulmonary disease Me dical Established Patient with Aaron Whitaker STUDIO CAMERA OPERATOR 02/28/2023 Last Documented On 3 9:51AM ; [facility] [J20.9 - Acute bronchitis, unspecified] acute bronchitis Medical Established Patient with Karla Clark STUDIO CAMERA OPERATOR 11/19/2022 Last Documented On 3 10:15AM ; [facility] [M79.621 - Pain in right upp er arm] pain in upper arm Medical Established Patient with Karla Clark STUDIO CAMERA OPERATOR 11/19/2022 Last Documented On 3 10:15AM ; [facility] [Z68.23 - Body mass index [B NH] 23.0-23.9, adult] assessment of body mass index Medical Established Patient with Karla Clark STUDIO CAMERA OPERATOR 11/19/2022 Last Documented On 3 10:15AM ; [facility] [M79.601 - Pain in right arm ] pain in right arm Medical Established Patient with Karla Clark STUDIO CAMERA OPERATOR 09/18/2022 Last Documented On 3 2:33PM ; [facility] [Z68.24 - Body mass index [B NH] 24.0-24.9, adult] assessment of body mass index Medical Established Patient with Karla Clark STUDIO CAMERA OPERATOR 09/18/2022 Last Documented On 3 2:33PM ; [facility] Assessment of tobacco use Medical Establ ished Patient with Karlajulius Floresen STUDIO CAMERA OPERATOR 09/18/2022 Last Documented On 3 2:33PM ; [facility] [M25.569 - Pain in unspecifi ed knee] arthralgia of knee / patella / tibia / fibula Medical Established Patient with Karla Clark STUDIO CAMERA OPERATOR 08/27/2022 Last Documented On 3 9:20AM ; [facility] [Z68.24 - Body mass index [B NH] 24.0-24.9, adult] assessment of body mass index Medical Established Patient with Karla Amber STUDIO CAMERA OPERATOR 08/27/2022 Last Documented On 3 9:20AM ; [facility] Intervention and counseling on cessation of tobacco use, 3-10 minutes Discussed medication and nicotine replacement for tobacco cessation Medical Established Patient with Karla Clark STUDIO CAMERA OPERATOR 08/27/2022 Last Documented On 3 9:20AM ; [facility] Nicotine dependence Medical Established Patient with Karla Clark STUDIO CAMERA OPERATOR 08/27/2022 Last Documented On 3 9:20AM ; [facility] Visit for routine adult H&P without abnormal findings Medical Established Patient with Karla Clark STUDIO CAMERA OPERATOR 08/27/2022 Last Documented On 3 9:20AM ; [facility] [H92.02 - Otalgia, left ear] earache Med ical Established Patient with Karla Clark STUDIO CAMERA OPERATOR 06/18/2022 Last Documented On 3 12:11PM ; [facility] [M79.604 - Pain in right leg ] pain in right leg Medical Established Patient with Karla Clark STUDIO CAMERA OPERATOR 06/18/2022 Last Documented On 3 12:11PM ; [facility] [Z68.24 - Body mass index [B NH] 24.0-24.9, adult] assessment of body mass index Medical Established Patient with Karla Clark CNP 06/18/2022 Last Documented On 3 12:11PM ; [facility] Assessment of tobacco use Medical Establ ished Patient with Karla Clark STUDIO CAMERA OPERATOR 06/18/2022 Last Documented On 3 12:11PM ; [facility] Diabetes Risk Test Score was four score 06/18/2022 Medical Established Patient with Karla Clark STUDIO CAMERA OPERATOR 06/18/2022 Last Documented On 3 12:11PM ; [facility] Schizoaffective disorder BH Established Patient with Yin Feliz [facility] 03/20/2022 Last Documented On 2 12:13AM ; [facility] No cough Medical Established Patient with Karla Clark STUDIO CAMERA OPERATOR 12/20/2021 Last Documented On 2 3:12PM ; [facility] Visit for: screening for hum an immunodeficiency virus Medical Established Patient with Karla Clark STUDIO CAMERA OPERATOR 12/20/2021 Last Documented On 2 3:12PM ; [facility] Z68.24 - Body mass index [BM I] 24.0-24.9, adult Medical Established Patient with Karla Clark STUDIO CAMERA OPERATOR 12/20/2021 Last Documented On 2 3:12PM ; [facility] Bipolar disorder NOS BH Established Patient with Yinluis Feliz [facility]-S 11/03/2021 Last Documented On 2 7:00PM ; [facility] Bipolar schizoaffective disorder BH Esta blished Patient with Yin Feliz [facility]-S 11/03/2021 Last Documented On 2 7:00PM ; [facility] PLAN Medical Established Patient with Don Pino MD 11/03/2021 Last Documented On 2 10:40AM ; [facility] Abnormal electrocardiogram Medical Estab lished Patient with Don Pino MD 11/03/2021 Last Documented On 2 10:40AM ; [facility] Z68.24 - Body mass index [BM I] 24.0-24.9, adult Medical Established Patient with Don Pino MD 11/03/2021 Last Documented On 2 10:40AM ; [facility] Cough Medical Established Patient with Karla Clark STUDIO CAMERA OPERATOR 07/28/2021 Last Documented On 2 2:01PM ; [facility] Intervention and counseling on cessation of tobacco use, 3-10 minutes Discussed medication and nicotine replacement for tobacco cessation Medical Established Patient with Karla Amber STUDIO CAMERA OPERATOR 07/28/2021 Last Documented On 2 2:01PM ; [facility] Nicotine dependence Medical Established Patient with Karla Amber STUDIO CAMERA OPERATOR 07/28/2021 Last Documented On 2 2:01PM ; [facility] Z68.24 - Body mass index [BM I] 24.0-24.9, adult Medical Established Patient with Karla Clark STUDIO CAMERA OPERATOR 07/28/2021 Last Documented On 2 2:01PM ; [facility] Assess Colon screening Medical Established Patie nt with Karla Amber STUDIO CAMERA OPERATOR 05/08/2021 Last Documented On 1 10:59AM ; [facility] Diabetes Risk Test Score was four score 05/08/2021 Medical Established Patient with Karla Amber STUDIO CAMERA OPERATOR 05/08/2021 Last Documented On 1 10:59AM ; [facility] Routine adult history and ph ysical (18-64 yrs) without abnormal findings Medical Established Patient with Karla Amber STUDIO CAMERA OPERATOR 05/08/2021 Last Documented On 1 10:59AM ; [facility] Z68.24 - Body mass index [BM I] 24.0-24.9, adult Medical Established Patient with Karla Amber STUDIO CAMERA OPERATOR 05/08/2021 Last Documented On 1 10:59AM ; [facility] Z68.24 - Body mass index [BM I] 24.0-24.9, adult Medical Established Patient with Karla Amber STUDIO CAMERA OPERATOR 06/17/2020 Last Documented On 1 10:30AM ; [facility] Overweight Medical Established Patient with Karla Amber STUDIO CAMERA OPERATOR 06/06/2020 Last Documented On 1 2:06PM ; [facility] Z68.25 - Body mass index [BM I] 25.0-25.9, adult Medical Established Patient with Karla Amber STUDIO CAMERA OPERATOR 06/06/2020 Last Documented On 1 2:06PM ; [facility] Antiasthmatics [facility] Asthma Clinic-New with Karla Amber STUDIO CAMERA OPERATOR 05/06/2020 Last Documented On 0 7:27PM ; [facility] Assessment of tobacco use [facility] Asthma Clinic-New with Karla Amber STUDIO CAMERA OPERATOR 05/06/2020 Last Documented On 0 7:27PM ; [facility] Body mass index [facility] Asthma Clinic-New with Karla Amber STUDIO CAMERA OPERATOR 05/06/2020 Last Documented On 0 7:27PM ; [facility] Chronic obstructive pulmonary disease S [facility] Clinic-New with Karla Amber STUDIO CAMERA OPERATOR 05/06/2020 Last Documented On 0 7:27PM ; [facility] Overweight [facility] Asthma Clinic-New with Karla Amber STUDIO CAMERA OPERATOR 05/06/2020 Last Documented On 0 7:27PM ; [facility] Z11.4 - Encounter for screen ing for human immunodeficiency virus [HIV] [facility] Asthma Clinic-New with Karla Clark STUDIO CAMERA OPERATOR 05/06/2020 Last Documented On 0 7:27PM ; [facility] Diabetes Risk Test Score was three score 03/31/2020 Medical Established Patient with Karla Floresen STUDIO CAMERA OPERATOR 03/31/2020 Last Documented On 0 3:22PM ; [facility] Overweight Medical Established Patient with Karla Floresen STUDIO CAMERA OPERATOR 03/31/2020 Last Documented On 0 3:22PM ; [facility] Z68.25 - Body mass index [BM I] 25.0-25.9, adult Medical Established Patient with Karla Clark STUDIO CAMERA OPERATOR 03/31/2020 Last Documented On 0 3:22PM ; [facility] Encounter for Immunization Nurse Visit with Gary Clark STUDIO CAMERA OPERATOR 03/14/2020 Last Documented On 0 5:11PM ; [facility] Body mass index Medical Established Patient with Karla Clark STUDIO CAMERA OPERATOR 02/26/2020 Last Documented On 0 1:18PM ; [facility] Overweight Medical Established Patient with Karla Floresen STUDIO CAMERA OPERATOR 02/26/2020 Last Documented On 0 1:18PM ; [facility] Overweight Medical Established Patient with Karla Floresen STUDIO CAMERA OPERATOR 07/23/2019 Last Documented On 0 2:33PM ; [facility] Z68.27 - Body mass index (BM I) 27.0-27.9, adult Medical Established Patient with Karla Floresen STUDIO CAMERA OPERATOR 07/23/2019 Last Documented On 0 2:33PM ; [facility] Occasional asthma CPS- Asthma Clinic- F/U with A french Clark STUDIO CAMERA OPERATOR 06/05/2019 Last Documented On 0 7:04PM ; [facility] Overweight CPS- Asthma Clinic- F/U with Alta Clark STUDIO CAMERA OPERATOR 06/05/2019 Last Documented On 0 7:04PM ; [facility] Z68.27 - Body mass index (BM I) 27.0-27.9 adult CPS- Asthma Clinic- F/U with Karla Clark STUDIO CAMERA OPERATOR 06/05/2019 Last Documented On 0 7:04PM ; [facility] Occasional asthma CPS Med Review with Karlajulius dinh STUDIO CAMERA OPERATOR 04/23/2019 Last Documented On 9 4:01PM ; [facility] Overweight CPS Med Review with Karla Clark STUDIO CAMERA OPERATOR 04/23/2019 Last Documented On 9 4:01PM ; [facility] Z68.27 - Body mass index (BM I) 27.0-27.9 adult CPS Med Review with Karlajulius Clark STUDIO CAMERA OPERATOR 04/23/2019 Last Documented On 9 4:01PM ; [facility] Acute pharyngitis Medical Established Patient wi th Brandy Kelley STUDIO CAMERA OPERATOR 04/15/2019 Last Documented On 9 12:31PM ; [facility] Asthmatic bronchitis with ac atka exacerbation Medical Established Patient with Brandy Warren STUDIO CAMERA OPERATOR 04/15/2019 Last Documented On 9 12:31PM ; [facility] Fagerstrom Score was two Medical Established Pat ient with Brandy Warren STUDIO CAMERA OPERATOR 04/15/2019 Last Documented On 9 12:31PM ; [facility] PHQ-9: total score was three 04/15/2019 Medical Established Patient with Brandy Warren STUDIO CAMERA OPERATOR 04/15/2019 Last Documented On 9 12:31PM ; [facility] Body mass index Medical Established Patient with Karla Clark STUDIO CAMERA OPERATOR 03/05/2019 Last Documented On 9 10:27AM ; [facility] Diabetes Risk Test Score was three score Medical Established Patient with Karla Amber STUDIO CAMERA OPERATOR 03/05/2019 Last Documented On 9 10:27AM ; [facility] Overweight Medical Established Patient with Karla Amber STUDIO CAMERA OPERATOR 03/05/2019 Last Documented On 9 10:27AM ; [facility] Z68.28 - Body mass index (BM I) 28.0-28.9, adult Medical Established Patient with Karla Clark STUDIO CAMERA OPERATOR 12/22/2018 Last Documented On 9 10:32AM ; [facility] Assess routine adult history and physical (18 - 64 yrs) Medical Established Patient with Karla Amber STUDIO CAMERA OPERATOR 11/06/2018 Last Documented On 9 2:26PM ; [facility] Overweight Medical Established Patient with Karla Amber STUDIO CAMERA OPERATOR 11/06/2018 Last Documented On 9 2:26PM ; [facility] Z68.28 - Body mass index (BM I) 28.0-28.9, adult Medical Established Patient with Karla Amber STUDIO CAMERA OPERATOR 11/06/2018 Last Documented On 9 2:26PM ; [facility] Assess dysphagia Medical Established Patient wit h Karla Amber STUDIO CAMERA OPERATOR 09/11/2018 Last Documented On 9 10:53AM ; [facility] Assess routine adult history and physical (18 - 64 yrs) Medical Established Patient with Karla Amber STUDIO CAMERA OPERATOR 09/11/2018 Last Documented On 9 10:53AM ; [facility] Assess primary insomnia with sleep apnea Medical Established Patient with Karla Amber STUDIO CAMERA OPERATOR 09/04/2018 Last Documented On 9 2:23PM ; [facility] Assess routine adult history and physical (18 - 64 yrs) Medical Established Patient with Karla Amber STUDIO CAMERA OPERATOR 09/04/2018 Last Documented On 9 2:23PM ; [facility] Overweight Medical Established Patient with Karla Amber STUDIO CAMERA OPERATOR 09/04/2018 Last Documented On 9 2:23PM ; [facility] Z68.29 - Body mass index (BM I) 29.0-29.9, adult Medical Established Patient with Karla Amber STUDIO CAMERA OPERATOR 09/04/2018 Last Documented On 9 2:23PM ; [facility] Assess vaginal candidiasis Medical Estab lished Patient with Karla Amber STUDIO CAMERA OPERATOR 07/31/2018 Last Documented On 9 2:12PM ; [facility] Work Phone: Evaluation note* Diagnosis Onset Date Resolution Status Abdominal pain acute Flank pain acute Hypertension acute Prolonged Q-T interval on ECG [facility] Evaluation note Includes: Assessments for all patient encounters Findings Encounter Date [R30.0 - Dysuria] Dysuria Chart Update with Gary Clark STUDIO CAMERA OPERATOR 03/21/2023 Last Documented On 3 11:27AM ; [facility] [Z12.39 - Encounter for othe r screening for malignant neoplasm of breast] visit for: screening for malignant breast neoplasm Medical Established Patient with Aaron Whitaker STUDIO CAMERA OPERATOR 02/28/2023 Last Documented On 3 9:51AM ; [facility] [Z68.24 - Body mass index [B NH] 24.0-24.9, adult] assessment of body mass index Medical Established Patient with Aaron Whitaker STUDIO CAMERA OPERATOR 02/28/2023 Last Documented On 3 9:51AM ; [facility] Assessment of tobacco use Medical Establ ished Patient with Aaron Whitaker STUDIO CAMERA OPERATOR 02/28/2023 Last Documented On 3 9:51AM ; [facility] Chronic obstructive pulmonary disease Me dical Established Patient with Aaron Whitaker STUDIO CAMERA OPERATOR 02/28/2023 Last Documented On 3 9:51AM ; [facility] [J20.9 - Acute bronchitis, unspecified] acute bronchitis Medical Established Patient with Karla Clark STUDIO CAMERA OPERATOR 11/19/2022 Last Documented On 3 10:15AM ; [facility] [M79.621 - Pain in right upp er arm] pain in upper arm Medical Established Patient with Karla Clark STUDIO CAMERA OPERATOR 11/19/2022 Last Documented On 3 10:15AM ; [facility] [Z68.23 - Body mass index [B NH] 23.0-23.9, adult] assessment of body mass index Medical Established Patient with Karla Clark STUDIO CAMERA OPERATOR 11/19/2022 Last Documented On 3 10:15AM ; [facility] [M79.601 - Pain in right arm ] pain in right arm Medical Established Patient with Karla Clark STUDIO CAMERA OPERATOR 09/18/2022 Last Documented On 3 2:33PM ; [facility] [Z68.24 - Body mass index [B NH] 24.0-24.9, adult] assessment of body mass index Medical Established Patient with Karla Clark STUDIO CAMERA OPERATOR 09/18/2022 Last Documented On 3 2:33PM ; [facility] Assessment of tobacco use Medical Establ ished Patient with Karla Clark STUDIO CAMERA OPERATOR 09/18/2022 Last Documented On 3 2:33PM ; [facility] [M25.569 - Pain in unspecifi ed knee] arthralgia of knee / patella / tibia / fibula Medical Established Patient with Karla Clark STUDIO CAMERA OPERATOR 08/27/2022 Last Documented On 3 9:20AM ; [facility] [Z68.24 - Body mass index [B NH] 24.0-24.9, adult] assessment of body mass index Medical Established Patient with Karla Clark CNP 08/27/2022 Last Documented On 3 9:20AM ; [facility] Intervention and counseling on cessation of tobacco use, 3-10 minutes Discussed medication and nicotine replacement for tobacco cessation Medical Established Patient with Karla Clark STUDIO CAMERA OPERATOR 08/27/2022 Last Documented On 3 9:20AM ; [facility] Nicotine dependence Medical Established Patient with Karla Clark CNP 08/27/2022 Last Documented On 3 9:20AM ; [facility] Visit for routine adult H&P without abnormal findings Medical Established Patient with Karla Clark CNP 08/27/2022 Last Documented On 3 9:20AM ; [facility] [H92.02 - Otalgia, left ear] earache Med ical Established Patient with Karla Clark STUDIO CAMERA OPERATOR 06/18/2022 Last Documented On 3 12:11PM ; [facility] [M79.604 - Pain in right leg ] pain in right leg Medical Established Patient with Karla Clark STUDIO CAMERA OPERATOR 06/18/2022 Last Documented On 3 12:11PM ; [facility] [Z68.24 - Body mass index [B NH] 24.0-24.9, adult] assessment of body mass index Medical Established Patient with Karla Clark STUDIO CAMERA OPERATOR 06/18/2022 Last Documented On 3 12:11PM ; [facility] Assessment of tobacco use Medical Establ ished Patient with Karla Clark STUDIO CAMERA OPERATOR 06/18/2022 Last Documented On 3 12:11PM ; [facility] Diabetes Risk Test Score was four score 06/18/2022 Medical Established Patient with Karla Amber STUDIO CAMERA OPERATOR 06/18/2022 Last Documented On 3 12:11PM ; [facility] Schizoaffective disorder Established Patient with Yin Feliz [facility]-S 03/20/2022 Last Documented On 2 12:13AM ; [facility] No cough Medical Established Patient with Karla Amebr STUDIO CAMERA OPERATOR 12/20/2021 Last Documented On 2 3:12PM ; [facility] Visit for: screening for hum an immunodeficiency virus Medical Established Patient with Karla Amber STUDIO CAMERA OPERATOR 12/20/2021 Last Documented On 2 3:12PM ; [facility] Z68.24 - Body mass index [BM I] 24.0-24.9, adult Medical Established Patient with Karla Amber STUDIO CAMERA OPERATOR 12/20/2021 Last Documented On 2 3:12PM ; [facility] Bipolar disorder NOS BH Established Patient with Yin Feliz LPCC-S 11/03/2021 Last Documented On 2 7:00PM ; [facility] Bipolar schizoaffective disorder BH Esta blished Patient with Yin Feliz LPCC-S 11/03/2021 Last Documented On 2 7:00PM ; [facility] PLAN Medical Established Patient with Don Pino MD 11/03/2021 Last Documented On 2 10:40AM ; [facility] Abnormal electrocardiogram Medical Estab lished Patient with Don Pino MD 11/03/2021 Last Documented On 2 10:40AM ; [facility] Z68.24 - Body mass index [BM I] 24.0-24.9, adult Medical Established Patient with Don Pino MD 11/03/2021 Last Documented On 2 10:40AM ; [facility] Cough Medical Established Patient with Karla Amber STUDIO CAMERA OPERATOR 07/28/2021 Last Documented On 2 2:01PM ; [facility] Intervention and counseling on cessation of tobacco use, 3-10 minutes Discussed medication and nicotine replacement for tobacco cessation Medical Established Patient with Karlajulius Clark STUDIO CAMERA OPERATOR 07/28/2021 Last Documented On 2 2:01PM ; [facility] Nicotine dependence Medical Established Patient with Karla Amber STUDIO CAMERA OPERATOR 07/28/2021 Last Documented On 2 2:01PM ; [facility] Z68.24 - Body mass index [BM I] 24.0-24.9, adult Medical Established Patient with Karla Amber STUDIO CAMERA OPERATOR 07/28/2021 Last Documented On 2 2:01PM ; [facility] Assess Colon screening Medical Established Patie nt with Karla Amber STUDIO CAMERA OPERATOR 05/08/2021 Last Documented On 1 10:59AM ; [facility] Diabetes Risk Test Score was four score 05/08/2021 Medical Established Patient with Karla Amber STUDIO CAMERA OPERATOR 05/08/2021 Last Documented On 1 10:59AM ; [facility] Routine adult history and ph ysical (18-64 yrs) without abnormal findings Medical Established Patient with Karla Amber STUDIO CAMERA OPERATOR 05/08/2021 Last Documented On 1 10:59AM ; [facility] Z68.24 - Body mass index [BM I] 24.0-24.9, adult Medical Established Patient with Karla Amber STUDIO CAMERA OPERATOR 05/08/2021 Last Documented On 1 10:59AM ; [facility] Z68.24 - Body mass index [BM I] 24.0-24.9, adult Medical Established Patient with Karla Amber STUDIO CAMERA OPERATOR 06/17/2020 Last Documented On 1 10:30AM ; [facility] Overweight Medical Established Patient with Karla Amber STUDIO CAMERA OPERATOR 06/06/2020 Last Documented On 1 2:06PM ; [facility] Z68.25 - Body mass index [BM I] 25.0-25.9, adult Medical Established Patient with Karla Amber STUDIO CAMERA OPERATOR 06/06/2020 Last Documented On 1 2:06PM ; [facility] Antiasthmatics CPS Asthma Clinic[facility] with Karla Clark STUDIO CAMERA OPERATOR 05/06/2020 Last Documented On 0 7:27PM ; [facility] Assessment of tobacco use CPS Asthma Clinic-New with Karla Amber STUDIO CAMERA OPERATOR 05/06/2020 Last Documented On 0 7:27PM ; [facility] Body mass index [facility] Asthma Clinic-New with Karal Amber STUDIO CAMERA OPERATOR 05/06/2020 Last Documented On 0 7:27PM ; [facility] Chronic obstructive pulmonary disease CP S [facility]-New with Karla Amber STUDIO CAMERA OPERATOR 05/06/2020 Last Documented On 0 7:27PM ; [facility] Overweight [facility] Asthma Clinic-New with Karla Amber STUDIO CAMERA OPERATOR 05/06/2020 Last Documented On 0 7:27PM ; [facility] Z11.4 - Encounter for screen ing for human immunodeficiency virus [HIV] CPS [facility] Clinic-New with Karlajulius Floresen STUDIO CAMERA OPERATOR 05/06/2020 Last Documented On 0 7:27PM ; [facility] Diabetes Risk Test Score was three score 03/31/2020 Medical Established Patient with Karlajulius Floresen STUDIO CAMERA OPERATOR 03/31/2020 Last Documented On 0 3:22PM ; [facility] Overweight Medical Established Patient with Karlajulius Floresen STUDIO CAMERA OPERATOR 03/31/2020 Last Documented On 0 3:22PM ; [facility] Z68.25 - Body mass index [BM I] 25.0-25.9, adult Medical Established Patient with Karla Clark STUDIO CAMERA OPERATOR 03/31/2020 Last Documented On 0 3:22PM ; [facility] Encounter for Immunization Nurse Visit with Gary Clark STUDIO CAMERA OPERATOR 03/14/2020 Last Documented On 0 5:11PM ; [facility] Body mass index Medical Established Patient with Karla Amber STUDIO CAMERA OPERATOR 02/26/2020 Last Documented On 0 1:18PM ; [facility] Overweight Medical Established Patient with Karla Amber STUDIO CAMERA OPERATOR 02/26/2020 Last Documented On 0 1:18PM ; [facility] Overweight Medical Established Patient with Karla Amber STUDIO CAMERA OPERATOR 07/23/2019 Last Documented On 0 2:33PM ; [facility] Z68.27 - Body mass index (BM I) 27.0-27.9, adult Medical Established Patient with Karla Floresen STUDIO CAMERA OPERATOR 07/23/2019 Last Documented On 0 2:33PM ; [facility] Occasional asthma CPS- Asthma Clinic- F/U with A french Clark STUDIO CAMERA OPERATOR 06/05/2019 Last Documented On 0 7:04PM ; [facility] Overweight CPS- Asthma Clinic- F/U with Aim julius Floresen STUDIO CAMERA OPERATOR 06/05/2019 Last Documented On 0 7:04PM ; [facility] Z68.27 - Body mass index (BM I) 27.0-27.9 adult CPS- Asthma Clinic- F/U with Karla Florseen STUDIO CAMERA OPERATOR 06/05/2019 Last Documented On 0 7:04PM ; [facility] Occasional asthma CPS Med Review with Karla Flores allegra STUDIO CAMERA OPERATOR 04/23/2019 Last Documented On 9 4:01PM ; [facility] Overweight CPS Med Review with Karla Floresen STUDIO CAMERA OPERATOR 04/23/2019 Last Documented On 9 4:01PM ; [facility] Z68.27 - Body mass index (BM I) 27.0-27.9 adult CPS Med Review with Karla Floresen STUDIO CAMERA OPERATOR 04/23/2019 Last Documented On 9 4:01PM ; [facility] Acute pharyngitis Medical Established Patient wi th Brandy Warren STUDIO CAMERA OPERATOR 04/15/2019 Last Documented On 9 12:31PM ; [facility] Asthmatic bronchitis with ac atka exacerbation Medical Established Patient with Brandy Warren STUDIO CAMERA OPERATOR 04/15/2019 Last Documented On 9 12:31PM ; [facility] Fagerstrom Score was two Medical Established Pat ient with Brandy Warren STUDIO CAMERA OPERATOR 04/15/2019 Last Documented On 9 12:31PM ; [facility] PHQ-9: total score was three 04/15/2019 Medical Established Patient with Brandy Warren STUDIO CAMERA OPERATOR 04/15/2019 Last Documented On 9 12:31PM ; [facility] Body mass index Medical Established Patient with Karla Amber STUDIO CAMERA OPERATOR 03/05/2019 Last Documented On 9 10:27AM ; [facility] Diabetes Risk Test Score was three score Medical Established Patient with Karla Amber STUDIO CAMERA OPERATOR 03/05/2019 Last Documented On 9 10:27AM ; [facility] Overweight Medical Established Patient with Karla Amber STUDIO CAMERA OPERATOR 03/05/2019 Last Documented On 9 10:27AM ; [facility] Z68.28 - Body mass index (BM I) 28.0-28.9, adult Medical Established Patient with Karla Amber STUDIO CAMERA OPERATOR 12/22/2018 Last Documented On 9 10:32AM ; [facility] Assess routine adult history and physical (18 - 64 yrs) Medical Established Patient with Karla Amber STUDIO CAMERA OPERATOR 11/06/2018 Last Documented On 9 2:26PM ; [facility] Overweight Medical Established Patient with Karla Amber STUDIO CAMERA OPERATOR 11/06/2018 Last Documented On 9 2:26PM ; [facility] Z68.28 - Body mass index (BM I) 28.0-28.9, adult Medical Established Patient with Karla Amber STUDIO CAMERA OPERATOR 11/06/2018 Last Documented On 9 2:26PM ; [facility] Assess dysphagia Medical Established Patient wit h Karla Amber STUDIO CAMERA OPERATOR 09/11/2018 Last Documented On 9 10:53AM ; [facility] Assess routine adult history and physical (18 - 64 yrs) Medical Established Patient with Karla Amber STUDIO CAMERA OPERATOR 09/11/2018 Last Documented On 9 10:53AM ; [facility] Assess primary insomnia with sleep apnea Medical Established Patient with Karla Amber STUDIO CAMERA OPERATOR 09/04/2018 Last Documented On 9 2:23PM ; [facility] Assess routine adult history and physical (18 - 64 yrs) Medical Established Patient with Karla Amber STUDIO CAMERA OPERATOR 09/04/2018 Last Documented On 9 2:23PM ; [facility] Overweight Medical Established Patient with Karla Amber STUDIO CAMERA OPERATOR 09/04/2018 Last Documented On 9 2:23PM ; [facility] Z68.29 - Body mass index (BM I) 29.0-29.9, adult Medical Established Patient with Karla Amber STUDIO CAMERA OPERATOR 09/04/2018 Last Documented On 9 2:23PM ; [facility] Assess vaginal candidiasis Medical Estab lished Patient with Karla Clark STUDIO CAMERA OPERATOR 07/31/2018 Last Documented On 9 2:12PM ; [facility] Work Phone: Evaluation note* Diagnosis Onset Date Resolution Status Abdominal pain acute Flank pain acute Hypertension acute Prolonged Q-T interval on ECG acute Schizoaffective disorder acu te Abdominal pain acute MYESHA (acute kidney injury) ac atka Flank pain acute Nausea & vomiting acute Schizoaffective disorder acu te [facility] Work Phone: Evaluation note* Diagnosis Neoplasm of unspecified behavior of bone, soft tissue, and skin- Primary documented in this encounter [facility] Narrative - Reported* Type Description Date Medical History asthma Medical History depression Medical History parkinson disease Medical History bipolar Surgical History tubal ligation Surgical History hysterectomy Hospitalization History [employer] [facility] [employer] Other History general Narrative - Reported* Type Description Date Medical History asthma Medical History depression Medical History parkinson disease Medical History bipolar Medical History schizophrenia Medical History migraine headache Medical History COPD Surgical History tubal ligation Surgical History hysterectomy Hospitalization History [employer] [facility] [employer] Other Histpoi general Narrative - Reported Includes: Medical History in patient's chart Description Last Updated 1 previous live (s) 02/28/2023 Last Documented On 3 9:51AM ; [facility] Previously 1 time(s) 02/28/2023 Last Documented On 3 9:51AM ; [facility] Previous hospitalizations 09/18/2022 Last Documented On 3 2:33PM ; [facility] Currently nursing 11/03/2021 Last Documented On 2 7:00PM ; [facility] status unknown for sexually tra nsmitted infection 11/03/2021 Last Documented On 2 7:00PM ; [facility] 11/03/2021 Last Documented On 2 7:00PM ; [facility] Not planning to have a baby in the next 12 months 11/03/2021 Last Documented On 2 7:00PM ; [facility] Heart Attack 03/2021 [facility] 1 07/09/2020 Last Documented On 1 10:59AM ; [facility] A recent immunization for flu 05/06/2020 Last Documented On 0 7:27PM ; [facility] Patient gave verbal consent for teleheal th 08/31/2019 Last Documented On 0 9:21AM ; [facility] History of abnormal electrocardiogram Last Documented On 9 2:12PM ; [facility] History of asthma 07/31/2018 Last Documented On 9 2:12PM ; [facility] History of cardiovascular disorder 07/31 Last Documented On 9 2:12PM ; [facility] History of respiratory disorder 07/31/19 19 Last Documented On 9 2:12PM ; [facility] History of bipolar disorder NOS 07/31/19 19 Last Documented On 9 2:12PM ; [facility] History of depression 07/31/2018 Last Documented On 9 2:12PM ; [facility] History of psychiatric disorders 019 Last Documented On 9 2:12PM ; [facility] Work Phone: History of Present illness Narrative History of Present Illness not supported for this document type No History of Present Illness [facility]ed[facility] Work Phone: Hospital Discharge instructions No data available for this section [facility] instructions[facility]ulatory Orders* PT/OT/SP OutPatient Referral Time Frame: 1 Day, Location: Determined By Patient Additional Instructions Orthopedic surgery discharge instructions Your operative arm should remain in your sling until your follow-up. You can remove this for hygiene purposes but do not lift your arm from your side. You may also perform pendulum exercises by letting her arm dangle at your side out of the sling and bending forward of the hip to 90 degrees, your arm will continue dangling with your hand towards the ground until it is almost like you are trying to touch her toes, and then swing your arm around like a pendulum. You may move your elbow, hand and fingers as tolerated but do not lift anything over 1 pound. The sling can be cumbersome and sometimes it is easier to sleep in a reclined position. The postoperative dressing can be removed 1 week after surgery, it is mostly waterproof so you may shower with it. You may leave incision open to air after dressing is removed. You should take your medications as prescribed. You will be given a pain medication (oxycodone) and should take this as it states on the bottle. You will also be given a prescription for Tylenol, 1000 mg every 8 hours. You should follow-up with Dr. Adame in 3 weeks, call office for appointment if you have not already scheduled one. Dr. Emory Adame [facility] [address] [place], [place] [id number] [phone] [facility] Work Phone: Instructions Instructions not supported for this document type No Instructions [facility] Work Phone: patient problem outcome Narrative Includes: Evaluations & Outcomes for active Goals No Outcomes [facility] Work Phone: progress note* Progress note Date Encounter Last Documented by 08/27/2022 Medical Established Patient Last documented on 08/27/2022; 8:56 AM, Karla Clark CNP; [facility] Active Problems & Conditions - J45.909 - Asthma Occasional - Asthma - F31.9 - Bipolar Disorder Nos - Bipolar disorder, unspecified - J44.9 - Chronic Obstructive Pulmonary Disease - F32.9 - Major depressive disorder, single episode, unspecified - Depression - Schizoaffective Disorder - Z72.0 - Tobacco Use - Tobacco abuse Chief Complaint The Chief Complaint is: Right knee pain. Referred Here No prior encounters. History of Present Illness Gail Almeida is a 66 year old female. - Allergy list reviewed - Reviewed Medications no longer taking prednisone - Medication list reviewed Presents for wellness and to f/u on [employer] , reports her knee feels much better now ! Gail is here for right knee pain. She states it has gotten better with mobic. Only times it bothers her is when it rains. She thinks her left ear might need to be cleaned out. She thinks she may have a wax build up. She thinks she has some anxiety going on. She states her chest feels heavy. Rash on her neck, ? detergent Current Medication - Acetaminophen ER 650 MG Oral Tablet Extended Release take 1 tablet by mouth twice daily, 30 days, 11 refills - Acidophilus Probiotic 0.5 MG Oral Tablet TAKE 1 TABLET BY MOUTH ONCE DAILY, 30 days, 11 refills - Albuterol Sulfate HFA 108 (90 Base) MCG/ACT Inhalation Aerosol Solution INHALE 1 OR 2 PUFFS EVERY 6 HOURS NEEDED FOR WHEEZING/SHORTNESS OF BREATH (may sub equivalent), 30 days, 11 refills - Amantadine HCl 100 MG Oral Capsule Take 1 tablet by mouth twice a day DR MUNOZ, 0 days, 0 refills - Benztropine Mesylate 0.5 MG Oral Tablet Take 1 tablet by mouth twice a day DR MUNOZ, 0 days, 0 refills - Calcium 600+D 600-400 MG-UNIT Oral Tablet TAKE 1 TABLET BY MOUTH TWICE A DAY, 30 days, 11 refills - cloNIDine HCl 0.1 MG Oral Tablet give one by mouth once daily, 0 days, 0 refills - Colace 100 MG Oral Capsule take 1 capsule by mouth once daily at bedtime, 30 days, 11 refills - Dulera 200-5 MCG/ACT Inhalation Aerosol INHALE 2 PUFFS BY MOUTH TWICE A DAY, 30 days, 11 refills - Famotidine 20 MG Oral Tablet TAKE 1 TABLET BY MOUTH TWICE A DAY, 30 days, 11 refills - Fluticasone Propionate 50 MCG/ACT Nasal Suspension INHALE 1 SPRAY INTO EACH NOSTRIL TWICE A DAY, 30 days, 11 refills - Folic Acid 800 MCG Oral Tablet TAKE 1 TABLET BY MOUTH ONCE EVERY DAY, 30 days, 11 refills - Moneta Carbonate 300MG Oral Tablet 300 MG take 1 tab in the AM, 1 1/2 tabs PM, 0 days, 0 refills - Loratadine 10 MG Oral Tablet take 1 tablet by mouth once daily, 30 days, 11 refills - Mobic 15 MG Oral Tablet take 1 tablet by mouth once daily (no other nsaids), 30 days, 11 refills - Polyethylene Glycol 3350 17 GM/SCOOP Oral Powder 17GM= 1CAP DISSOLVE IN 4-8 OZ LIQUID BEFORE ADMINISTRATION BY MOUTH EVERY DAY, 30 days, 11 refills - QC Vitamin B12 500 MCG Oral Tablet TAKE 1 TABLET BY MOUTH ONCE EVERY DAY ALONG WITH FOLIC ACID, 30 days, 11 refills - QUEtiapine Fumarate 300 MG Oral Tablet one table daily at bedtime give with 300mg to equal 700mg, 0 days, 0 refills - QUEtiapine Fumarate 400 MG Oral Tablet daily at bedtime, 0 days, 0 refills - RisperDAL Consta 25 MG Intramuscular Suspension Reconstituted ER inject 2 milliliters IM every 2 weeks, 0 days, 0 refills - Tessalon Perles 100 MG Oral Capsule take 1 Pill by Mouth Three Times Per Day, 30 days, 5 refills - Topiramate 25 MG Oral Tablet take 1 tablet by mouth once daily at bedtime, 30 days, 11 refills Past Medical/Surgical History Reported: Patient gave verbal consent for telehealth. Medical: No previous hospitalizations. Partners sexually transmitted infection status not known. 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 Not planning to have a baby in the next 12 months. Diagnoses: Abnormal electrocardiogram. Asthma. Bipolar disorder NOS Depression Heart Attack 03/2021 [facility]. Surgical: - Hysterectomy Social History Environmental Exposure: No secondhand cigarette smoke exposure. Tobacco use: Cigarette smoking light: Patient smokes 1-10 cigarettes per day. Not using electronic cigarettes/vaping. Sexual: Sexual orientation Straight (not lesbian or pierce) and gender identity Female. Allergies - aspirin Reaction: shock - Bactrim DS Reaction: odor - Codeine Reaction: unknown - fluoxetine Reaction: Feels weird - Metals - -No Environmental Allergies - -No Known Food Allergies - -Other Reaction: Barbiturates, and amphetamines - PENICILLINS Reaction: Turning blue - Sulfa sensitivity Reaction: odor Family History No significant medical history in nuclear family Review Of Systems Head: No head symptoms. Neck: No neck symptoms. Eyes: No eye symptoms. Otolaryngeal: No ear symptoms, no nasal symptoms, no nose and sinus finding, no throat symptoms, no oral cavity symptoms, and no jaw symptoms. Breasts: No breast symptoms. Cardiovascular: No cardiovascular symptoms and no chest pain or discomfort. Pulmonary: No pulmonary symptoms. Gastrointestinal: No gastrointestinal symptoms. Genitourinary: No genitourinary symptoms. Musculoskeletal: No musculoskeletal symptoms. Neurological: No neurological symptoms. Psychological: No psychological symptoms. Skin: No skin symptoms. Cardiovascular: Edema not present. Physical Findings - Vitals taken 08/27/2022 08:26 am BP-Sitting L115/73 mmHg BP Cuff SizeRegular Pulse Rate-Heokqdd53 bpm Temp-Jcdeayvh79 F Nqmygt30 in Ymogbq874 lbs 9.6 oz Body Mass Index24.6 kg/m2 Body Surface Area1.7 m2 Oxygen Zmpwkthrpe52 % General Appearance: - Appears distressed. - Awake. - Alert. - Well developed. - Well nourished. Head: Appearance: - Head normocephalic. Scar: - No scar on the head. Scalp: - Normal. Skull Tenderness: - No skull tenderness. Crepitus: - Head showed no crepitus. Temporal Arteries: - Normal. Neck: Appearance: - Of the neck was normal. Palpation: - Of the neck revealed no abnormalities. Suppleness: - Neck demonstrated no decrease in suppleness. Maneuvers: - Neck maneuvers elicited no abnormal responses. Weakness: - No neck weakness was seen. Thyroid: - Had a mass neck mass as previous , has had sugery. - Not diffusely enlarged. Cervical Mass: - No cervical mass was seen. Scar: - No surgical/traumatic scar was seen on the neck. Eyes: General/bilateral: Extraocular Movements: - Normal. Pupils: - PERRLA. - Size of the pupil was normal. - Reactive to light. - Showed normal accommodation. - No abnormal pupil function. External: - Eyelids showed no abnormalities. Sclera: - Not red. Ears: General/bilateral: Outer Ear: - Normal. Tympanic Membrane: - Examined. Hearing: - No hearing abnormalities. Right Ear: - Examined. Left Ear: - Examined. Nose: General/bilateral: Discharge: - No nasal discharge. Nasal Malformation: - No nasal malformation. External Deformities: - No external nose deformities. External Mass: - No external nasal mass. Piercings: - Nose was not pierced. Cavity: - No nasal cavity abnormalities. Nasal Erythema: - No nasal erythema was noted. Nasal Edema: - No nasal edema was noted. Nasal Bone Tenderness: - No nasal bone tenderness. Sinus Tenderness: - No sinus tenderness. Oral Cavity: - Odor of breath was normal. Lips: - Showed no abnormalities. Frenum Attachment: - Showed no abnormalities. Gums: - Examination showed no abnormalities. Teeth: - Dental no abnormalities. Buccal Mucosa: - Showed no mucosal abnormalities. Tongue: - Examination showed no abnormalities. Salivary Glands: - No salivary calculus was found. - Sublingual glands were not tender. - Sublingual glands were not swollen. - Sublingual glands did not have erythematous overlying mucosa. Palate: - Hard palate was normal. - Not cleft. - Showed no mucosal abnormalities. Pharynx: Nasopharynx: - Normal. Oropharynx: - Normal. Hypopharynx: - Normal. Mucosal: - Pharynx had no mucosal abnormalities. Lungs: - Respiration rhythm and depth was normal. Cardiovascular: Heart Rate And Rhythm: - Normal. Heart Sounds: - Normal. Murmurs: - No murmurs were heard. Thrill: - No thrill. Abdomen: Visual Inspection: - Abdomen was normal on visual inspection. Musculoskeletal System: General/bilateral: - Normal movement of all extremities. Neurological: - Oriented to time, place, and person. Skin: - General appearance was normal. Assessment - Z00.00 - Encounter for general adult medical examination without abnormal findings - Z68.24 - Body mass index [BMI] 24.0-24.9, adult - M25.569 - Pain in unspecified knee - F17.200 - Nicotine dependence, unspecified, uncomplicated - Intervention and counseling on cessation of tobacco use, 3-10 minutes Discussed medication and nicotine replacement for tobacco cessation Therapy - Patient refused flu vaccine. Discussed benefits of flu vaccine with Patient. Vaccinations - Did not receive dose of Reported: Patient has not received the Covid Vaccine Counseling/Education - Wishing to stop smoking Discussed Quit Line resources - Discussed nutritional needs teach healthy choices including fruits and vegetables - Patient education about a proper diet - Discussed concerns about exercise: promote physical activity Plan StartCited- Encntr for general adult medical exam w/o abnormal findings Lab: CBC WITH DIFF Lab: COMP MET PROF TABOR Lab: LIPID PROFILE Lab: TSH W/REFLEX TO FT4 EndCited StartCited- Other Follow-up Appointment 6 month check up Folic Acid 800 MCG tablet TAKE 1 TABLET BY MOUTH ONCE EVERY DAY, 30 days, 11 refills EndCited Practice Management Systolic blood pressure < 130 mmHg and diastolic < 80 mmHg diastolic < 80 mmHg. Advance Directives - Advance Care Planning Health Reminders - Assess BMI satisfied 08/27/2022. - Assess Tobacco Use satisfied 08/27/2022. - Smoking & Tobacco Cessation Intervention and Counseling satisfied 08/27/2022. [facility] note Date Encounter Last Documented by 03/21/2023 Chart Update Last documented on 03/21/2023; 11:27 AM, Karla Clark CNP; [facility] Active Problems & Conditions - J20.9 - Acute Bronchitis - J45.909 - Asthma Occasional - Asthma - F31.9 - Bipolar Disorder Nos - Bipolar disorder, unspecified - J44.9 - Chronic Obstructive Pulmonary Disease - M79.621 - Limb Pain Upper Arm - F32.9 - Major depressive disorder, single episode, unspecified - Depression - Schizoaffective Disorder - Z72.0 - Tobacco Use - Tobacco abuse Current Medication - Acetaminophen ER 650 MG Oral Tablet Extended Release take 1 tablet by mouth twice daily, 30 days, 11 refills - Acidophilus Probiotic 0.5 MG Oral Tablet TAKE 1 TABLET BY MOUTH ONCE DAILY, 30 days, 11 refills - Advair Diskus 250-50 MCG/ACT Inhalation Aerosol Powder Breath Activated inhale 1 actuation by mouth twice daily (replaces dulera r/t insurance), 30 days, 11 refills - Albuterol Sulfate HFA 108 (90 Base) MCG/ACT Inhalation Aerosol Solution INHALE 1 OR 2 PUFFS EVERY 6 HOURS NEEDED FOR WHEEZING/SHORTNESS OF BREATH (may sub equivalent), 30 days, 11 refills - Amantadine HCl 100 MG Oral Capsule Take 1 tablet by mouth twice a day DR MUNOZ, 0 days, 0 refills - Benzonatate 200 MG Oral Capsule 1 tab po TID as needed, 30 days, 1 refills - Benztropine Mesylate 0.5 MG Oral Tablet Take 1 tablet by mouth twice a day DR MUNOZ, 0 days, 0 refills - Calcium 600+D 600-400 MG-UNIT Oral Tablet TAKE 1 TABLET BY MOUTH TWICE A DAY, 30 days, 11 refills - cloNIDine HCl 0.1 MG Oral Tablet give one by mouth once daily, 0 days, 0 refills - Colace 100 MG Oral Capsule take 1 capsule by mouth once daily at bedtime, 30 days, 11 refills - Dulera 200-5 MCG/ACT Inhalation Aerosol INHALE 2 PUFFS BY MOUTH TWICE A DAY, 30 days, 11 refills - Famotidine 20 MG Oral Tablet TAKE 1 TABLET BY MOUTH TWICE A DAY, 30 days, 11 refills - Fluticasone Propionate 50 MCG/ACT Nasal Suspension INHALE 1 SPRAY INTO EACH NOSTRIL TWICE A DAY, 30 days, 11 refills - Folic Acid 800 MCG Oral Tablet TAKE 1 TABLET BY MOUTH ONCE EVERY DAY, 30 days, 11 refills - HYDROcodone-Acetaminophen 5-325 MG Oral Tablet take 1/2 - 1 tablet by mouth every 6 hours as needed for severe arm pain, 5 days, 0 refills - Moneta Carbonate 150 MG Oral Capsule one capsule by mouth twice daily, 30 days, 0 refills - Loratadine 10 MG Oral Tablet take 1 tablet by mouth once daily, 30 days, 11 refills - Mobic 15 MG Oral Tablet take 1 tablet by mouth once daily (no other nsaids), 30 days, 11 refills - Polyethylene Glycol 3350 17 GM/SCOOP Oral Powder 17GM= 1CAP DISSOLVE IN 4-8 OZ LIQUID BEFORE ADMINISTRATION BY MOUTH EVERY DAY, 30 days, 11 refills - QC Vitamin B12 500 MCG Oral Tablet TAKE 1 TABLET BY MOUTH ONCE EVERY DAY ALONG WITH FOLIC ACID, 30 days, 11 refills - RisperDAL Consta 25 MG Intramuscular Suspension Reconstituted ER inject 2 milliliters IM every 2 weeks, 0 days, 0 refills - Tessalon Perles 100 MG Oral Capsule take 1 Pill by Mouth Three Times Per Day, 30 days, 5 refills - Topiramate 25 MG Oral Tablet take 1 tablet by mouth once daily at bedtime, 30 days, 11 refills Past Medical/Surgical History Reported: Patient gave verbal consent for telehealth. Medical: Previous hospitalizations. Partners sexually transmitted infection status not known. Immunization History: Recent immunization for flu. 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 Not planning to have a baby in the next 12 months. Diagnoses: Abnormal electrocardiogram. Asthma. Bipolar disorder NOS Depression Heart Attack 03/2021 [facility]. Surgical: - General surgery right shoulder ORIF 09/13/22 - Hysterectomy Allergies - aspirin Reaction: shock - Bactrim DS Reaction: odor - Codeine Reaction: unknown - fluoxetine Reaction: Feels weird - Metals - -No Environmental Allergies - -No Known Food Allergies - -Other Reaction: Barbiturates, and amphetamines - PENICILLINS Reaction: Turning blue - Sulfa sensitivity Reaction: odor Family History No significant medical history in nuclear family Maternal: Breast neoplasm Assessment - R30.0 - Dysuria Plan StartCited- Dysuria Outside Labs/General Labs: Urinalysis (UA), Urinalysis w/reflex C&S (UAX) EndCited Advance Directives - Advance Care Planning [facility] ([facility])No Reason for Referral [facility] Work Phone: Review of systems Narrative - Reported Review of Systems not supported for this document type No Review of Systems [facility] Work Phone: History of Past Illness Name Date of Onset Comments Chest pain Abnormal EKG Tobacco abuse Depression Bipolar disorder, unspecified Atypical chest pain Asthma Migraines Sep 08 2015 9:10AM Vaginal discharge Sep 08 2015 9:10AM Chest pain Sep 08 2015 9:10AM Fatigue Sep 08 2015 9:10AM Migraine Sep 22 2015 8:28AM Hypertension Sep 22 2015 8:28AM Sinusitis Sep 22 2015 8:28AM Seasonal allergies Sep 22 2015 8:28AM UTI (urinary tract infection) Oct 25 2015 8:54AM Migraines Oct 25 2015 8:54AM Migraines Dec 08 2015 8:45AM Seasonal allergies Dec 08 2015 8:45AM Sinusitis Jan 11 2016 10:10AM Seasonal allergies Jan 11 2016 10:10AM Tobacco abuse Jan 11 2016 10:10AM Sinusitis Feb 21 2016 10:20AM Dizziness Feb 21 2016 10:20AM Generalized weakness Feb 21 2016 10:20AM Tuberculosis screening Mar 06 2016 3:19PM TB Skin Test Negative Mar 09 2016 11:16AM Influenza vaccine administered Mar 20 2016 10:48 AM Tobacco abuse Mar 20 2016 10:48AM Rosa infection of genital region Mar 20 2016 10:48AM Tobacco abuse Apr 10 2016 11:00AM Cough Apr 10 2016 11:00AM Migraine May 15 2016 11:25AM Sinusitis May 22 2016 1:56PM Chest congestion May 22 2016 1:56PM COPD (chronic obstructive pulmonary disease) Jun 12 2016 11:37AM Tobacco abuse Jun 12 2016 11:37AM Carpal tunnel syndrome Jun 26 2016 2:21PM Cough Jun 26 2016 2:21PM Tobacco abuse Jun 26 2016 2:21PM Fatigue Jul 31 2016 9:34AM Unsteady gait Aug 01 2016 3:46PM Cough Aug 21 2016 10:29AM Knee pain, right Aug 21 2016 10:29AM Seasonal allergies Sep 27 2016 2:36PM UTI (urinary tract infection) Nov 06 2016 11:27AM COPD (chronic obstructive pulmonary disease) Nov 23 2016 8:36AM Yeast infection Dec 06 2016 9:55AM Acute vaginitis Dec 06 2016 9:55AM Other specified bacterial ag ents as the cause of diseases classified elsewhere Dec 06 2016 9:55AM Vaginal discharge Dec 18 2016 9:54AM History of benign brain tumor Jan 01 2017 9:04AM Headache Jan 01 2017 9:04AM BMI 28.0-28.9,adult Jan 01 2017 9:04AM Influenza vaccine administered Mar 05 2017 1:36PM Special screening examinatio n for bacterial and spirochetal diseases; pulmonary tuberculosis Mar 05 2017 1:36PM Physical exam, routine Mar 05 2017 1:36PM Tobacco abuse Mar 05 2017 1:36PM BMI 29.0-29.9,adult Mar 05 2017 1:36PM TB Skin Test Negative Mar 07 2017 2:14PM Screening for diabetes mellitus Apr 18 2017 3:37 PM BMI 29.0-29.9,adult Apr 18 2017 3:37PM Sinusitis, unspecified chronicity, unspecified l ocation Apr 18 2017 3:37PM Suspicious nevus May 14 2017 10:52AM BMI 29.0-29.9,adult May 14 2017 10:52AM Pain in right knee Jul 30 2017 9:50AM Other chronic pain Jul 30 2017 9:50AM BMI 28.0-28.9,adult Jul 30 2017 9:50AM Encounter for routine histor y and physical exam in female Sep 17 2017 10:56AM BMI 29.0-29.9,adult Sep 17 2017 10:56AM Yeast infection Sep 17 2017 10:56AM Encounter for routine laboratory testing Sep 17 2017 10:56AM Hand numbness Oct 08 2017 11:25AM BMI 29.0-29.9,adult Oct 08 2017 11:25AM Screening mammogram, encounter for Nov 19 2017 1 1:42AM Name Date of Onset Comments Chest pain Abnormal EKG Tobacco abuse Depression Bipolar disorder, unspecified Atypical chest pain Asthma Migraines Sep 08 2015 9:10AM Vaginal discharge Sep 08 2015 9:10AM Chest pain Sep 08 2015 9:10AM Fatigue Sep 08 2015 9:10AM Migraine Sep 22 2015 8:28AM Hypertension Sep 22 2015 8:28AM Sinusitis Sep 22 2015 8:28AM Seasonal allergies Sep 22 2015 8:28AM UTI (urinary tract infection) Oct 25 2015 8:54AM Migraines Oct 25 2015 8:54AM Migraines Dec 08 2015 8:45AM Seasonal allergies Dec 08 2015 8:45AM Sinusitis Jan 11 2016 10:10AM Seasonal allergies Jan 11 2016 10:10AM Tobacco abuse Jan 11 2016 10:10AM Sinusitis Feb 21 2016 10:20AM Dizziness Feb 21 2016 10:20AM Generalized weakness Feb 21 2016 10:20AM Tuberculosis screening Mar 06 2016 3:19PM TB Skin Test Negative Mar 09 2016 11:16AM Influenza vaccine administered Mar 20 2016 10:48 AM Tobacco abuse Mar 20 2016 10:48AM Rosa infection of genital region Mar 20 2016 10:48AM Tobacco abuse Apr 10 2016 11:00AM Cough Apr 10 2016 11:00AM Migraine May 15 2016 11:25AM Sinusitis May 22 2016 1:56PM Chest congestion May 22 2016 1:56PM COPD (chronic obstructive pulmonary disease) Jun 12 2016 11:37AM Tobacco abuse Jun 12 2016 11:37AM Carpal tunnel syndrome Jun 26 2016 2:21PM Cough Jun 26 2016 2:21PM Tobacco abuse Jun 26 2016 2:21PM Fatigue Jul 31 2016 9:34AM Unsteady gait Aug 01 2016 3:46PM Cough Aug 21 2016 10:29AM Knee pain, right Aug 21 2016 10:29AM Seasonal allergies Sep 27 2016 2:36PM UTI (urinary tract infection) Nov 06 2016 11:27AM COPD (chronic obstructive pulmonary disease) Nov 23 2016 8:36AM Yeast infection Dec 06 2016 9:55AM Acute vaginitis Dec 06 2016 9:55AM Other specified bacterial ag ents as the cause of diseases classified elsewhere Dec 06 2016 9:55AM Vaginal discharge Dec 18 2016 9:54AM History of benign brain tumor Jan 01 2017 9:04AM Headache Jan 01 2017 9:04AM BMI 28.0-28.9,adult Jan 01 2017 9:04AM Influenza vaccine administered Mar 05 2017 1:36PM Special screening examinatio n for bacterial and spirochetal diseases; pulmonary tuberculosis Mar 05 2017 1:36PM Physical exam, routine Mar 05 2017 1:36PM Tobacco abuse Mar 05 2017 1:36PM BMI 29.0-29.9,adult Mar 05 2017 1:36PM TB Skin Test Negative Mar 07 2017 2:14PM Screening for diabetes mellitus Apr 18 2017 3:37 PM BMI 29.0-29.9,adult Apr 18 2017 3:37PM Sinusitis, unspecified chronicity, unspecified l ocation Apr 18 2017 3:37PM Suspicious nevus May 14 2017 10:52AM BMI 29.0-29.9,adult May 14 2017 10:52AM Pain in right knee Jul 30 2017 9:50AM Other chronic pain Jul 30 2017 9:50AM BMI 28.0-28.9,adult Jul 30 2017 9:50AM Encounter for routine histor y and physical exam in female Sep 17 2017 10:56AM BMI 29.0-29.9,adult Sep 17 2017 10:56AM Yeast infection Sep 17 2017 10:56AM Encounter for routine laboratory testing Sep 17 2017 10:56AM Hand numbness Oct 08 2017 11:25AM BMI 29.0-29.9,adult Oct 08 2017 11:25AM Assessments Findings Encounter Date Z68.28 - Body mass index (BM I) 28.0-28.9, adult Medical Established Patient with Karla Floresen [facility] 12/22/2018 Assess routine adult history and physical (18 - 64 yrs) Medical Established Patient with Karlajulius Clark [facility] 11/06/2018 Overweight [facility] Z68.28 - Body mass index (BM I) 28.0-28.9, adult Medical Established Patient with Karla Amber CNP 11/06/2018 Assess dysphagia Medical Established Patient with Karla Amber [facility] 09/11/2018 Assess routine adult history and physical (18 - 64 yrs) Medical Established Patient with Karla Amber CNP 09/11/2018 Assess primary insomnia with sleep apnea Medical Established Patient with Karla Amber CNP 09/04/2018 Assess routine adult history and physical (18 - 64 yrs) Medical Established Patient with Karlajulius Clark [facility] 09/04/2018 Overweight Medical Established Patient with Karla Amber [facility] 09/04/2018 Z68.29 - Body mass index (BM I) 29.0-29.9, adult Medical Established Patient with Karla Clark [facility] 09/04/2018 Assess vaginal candidiasis Medical Estab lished Patient with Karla Clark [facility] 07/31/2018 Diagnosis Right foot pain Pain in limb Diagnosis Abnormal mammogram of left breast Findings Encounter Date Occasional asthma CPS Med Review with Karla dinh [facility] 04/23/2019 Overweight CPS Med Review with Karla Clark [facility] 04/23/2019 Z68.27 - Body mass index (BM I) 27.0-27.9 adult CPS Med Review with Karla Clark [facility] 04/23/2019 Acute pharyngitis Medical Established Patient with Brandy Kelley [facility] 04/15/2019 Asthmatic bronchitis with ac atka exacerbation [facility] Fagerstrom Score was two Medical Establi shed Patient with Brandy Kelley [facility] 04/15/2019 PHQ-9: total score was three 04/15/2019 [facility] Body mass index Medical Established Patient with Karla Clark [facility] 03/05/2019 Diabetes Risk Test Score was three score Medical Established Patient with Karla Clark [facility] 03/05/2019 Overweight Medical Established Patient with Karla Clark [facility] 03/05/2019 Z68.28 - Body mass index (BM I) 28.0-28.9, adult Medical Established Patient with Karla Clark [facility] 12/22/2018 Assess routine adult history and physical (18 - 64 yrs) Medical Established Patient with Karla Clark [facility] 11/06/2018 Overweight Medical Established Patient with Karla Clark [facility] 11/06/2018 Z68.28 - Body mass index (BM I) 28.0-28.9, adult Medical Established Patient with Karla Clark [facility] 11/06/2018 Assess dysphagia Medical Established Patient with Karla Clark [facility] 09/11/2018 Assess routine adult history and physical (18 - 64 yrs) Medical Established Patient with Karla Clark [facility] 09/11/2018 Assess primary insomnia with sleep apnea Medical Established Patient with Karla Clark [facility] 09/04/2018 Assess routine adult history and physical (18 - 64 yrs) Medical Established Patient with Karla Clark [facility] 09/04/2018 Overweight [facility] Z68.29 - Body mass index (BM I) 29.0-29.9, adult Medical Established Patient with Karlajulius Clark [employer] 09/04/2018 Assess vaginal candidiasis Medical Estab lished Patient with Karlajulius Clark [employer]UDIO CAMERA OPERATOR 07/31/2018 Findings Encounter Date Occasional asthma CPS- Asthma Clinic- F/U with Karla Amber STUDIO CAMERA OPERATOR 06/05/2019 Overweight CPS- Asthma Clinic- F/U with Karlajulius Floresen [employer]UDIO CAMERA OPERATOR 06/05/2019 Z68.27 - Body mass index (BM I) 27.0-27.9 adult CPS- Asthma Clinic- F/U with Karlajulius Floresen STUDIO CAMERA OPERATOR 06/05/2019 Occasional asthma CPS Med Review with aKrla Flores allegra [facility] 04/23/2019 Overweight CPS Med Review with Karla Amber [facility] 04/23/2019 Z68.27 - Body mass index (BM I) 27.0-27.9 adult CPS Med Review with Karlajulius Floresen STUDIO CAMERA OPERATOR 04/23/2019 Acute pharyngitis Medical Established Patient with Brandy Serranoer STUDIO CAMERA OPERATOR 04/15/2019 Asthmatic bronchitis with ac atka exacerbation Medical Established Patient with Brandy Warren [facility] 04/15/2019 Fagerstrom Score was two Medical Establi shed Patient with Brandy Serranoer [facility] 04/15/2019 PHQ-9: total score was three 04/15/2019 Medical Established Patient with Brandy Warren [facility] 04/15/2019 Body mass index Medical Established Patient with Karla Clark [facility] 03/05/2019 Diabetes Risk Test Score was three score Medical Established Patient with Karlajulius Floresen [facility] 03/05/2019 Overweight Medical Established Patient with Karlajulius Clark [facility] 03/05/2019 Z68.28 - Body mass index (BM I) 28.0-28.9, adult Medical Established Patient with Karlajulius Clark [facility] 12/22/2018 Assess routine adult history and physical (18 - 64 yrs) Medical Established Patient with Karlajulius Clark STUDIO CAMERA OPERATOR 11/06/2018 Overweight Medical Established Patient with Karlajulius Clark STUDIO CAMERA OPERATOR 11/06/2018 Z68.28 - Body mass index (BM I) 28.0-28.9, adult Medical Established Patient with Karlajulius Clark STUDIO CAMERA OPERATOR 11/06/2018 Assess dysphagia Medical Established Patient with Karlajulius Clark STUDIO CAMERA OPERATOR 09/11/2018 Assess routine adult history and physical (18 - 64 yrs) Medical Established Patient with Karlajulius Clark STUDIO CAMERA OPERATOR 09/11/2018 Assess primary insomnia with sleep apnea Medical Established Patient with Karla Clark STUDIO CAMERA OPERATOR 09/04/2018 Assess routine adult history and physical (18 - 64 yrs) Medical Established Patient with Karla Floresen STUDIO CAMERA OPERATOR 09/04/2018 Overweight Medical Established Patient with Karlajulius Floresen STUDIO CAMERA OPERATOR 09/04/2018 Z68.29 - Body mass index (BM I) 29.0-29.9, adult Medical Established Patient with Karla Floresen STUDIO CAMERA OPERATOR 09/04/2018 Assess vaginal candidiasis Medical Estab lished Patient with Karla Floresen STUDIO CAMERA OPERATOR 07/31/2018 Findings Encounter Date Overweight Medical Established Patient with Karla Floresen [facility] 07/23/2019 Z68.27 - Body mass index (BM I) 27.0-27.9, adult Medical Established Patient with Karla Amber STUDIO CAMERA OPERATOR 07/23/2019 Occasional asthma CPS- Asthma Clinic- F/U with Karla Amber [facility] 06/05/2019 Overweight CPS- Asthma Clinic- F/U with Karla Amber STUDIO CAMERA OPERATOR 06/05/2019 Z68.27 - Body mass index (BM I) 27.0-27.9 adult CPS- Asthma Clinic- F/U with Karla Amber STUDIO CAMERA OPERATOR 06/05/2019 Occasional asthma CPS Med Review with Karla Flores allegra [facility] 04/23/2019 Overweight CPS Med Review with Karla Floresen [facility] 04/23/2019 Z68.27 - Body mass index (BM I) 27.0-27.9 adult CPS Med Review with Karla Amber [facility] 04/23/2019 Acute pharyngitis Medical Established Patient with Brandy Serranoer STUDIO CAMERA OPERATOR 04/15/2019 Asthmatic bronchitis with ac atka exacerbation Medical Established Patient with Brandy Serranoer [facility] 04/15/2019 Fagerstrom Score was two Medical Establi shed Patient with Brandy Warren [facility] 04/15/2019 PHQ-9: total score was three 04/15/2019 Medical Established Patient with Brandy Warren [facility] 04/15/2019 Body mass index Medical Established Patient with Karla Floresen [facility] 03/05/2019 Diabetes Risk Test Score was three score Medical Established Patient with Karla Amber STUDIO CAMERA OPERATOR 03/05/2019 Overweight Medical Established Patient with Karla Amber [facility] 03/05/2019 Z68.28 - Body mass index (BM I) 28.0-28.9, adult Medical Established Patient with Karla Amber STUDIO CAMERA OPERATOR 12/22/2018 Assess routine adult history and physical (18 - 64 yrs) Medical Established Patient with Karla Amber STUDIO CAMERA OPERATOR 11/06/2018 Overweight Medical Established Patient with Karla Amber STUDIO CAMERA OPERATOR 11/06/2018 Z68.28 - Body mass index (BM I) 28.0-28.9, adult Medical Established Patient with Karla Amber STUDIO CAMERA OPERATOR 11/06/2018 Assess dysphagia Medical Established Patient with Karla Amber STUDIO CAMERA OPERATOR 09/11/2018 Assess routine adult history and physical (18 - 64 yrs) Medical Established Patient with Karla Amber STUDIO CAMERA OPERATOR 09/11/2018 Assess primary insomnia with sleep apnea Medical Established Patient with Karla Amber STUDIO CAMERA OPERATOR 09/04/2018 Assess routine adult history and physical (18 - 64 yrs) Medical Established Patient with Karla Amber STUDIO CAMERA OPERATOR 09/04/2018 Overweight Medical Established Patient with Karla Amber STUDIO CAMERA OPERATOR 09/04/2018 Z68.29 - Body mass index (BM I) 29.0-29.9, adult Medical Established Patient with Karla Amber STUDIO CAMERA OPERATOR 09/04/2018 Assess vaginal candidiasis Medical Estab lished Patient with Karla Amber STUDIO CAMERA OPERATOR 07/31/2018 Findings Encounter Date Body mass index Medical Established Patient with Karla Amber STUDIO CAMERA OPERATOR 02/26/2020 Overweight Medical Established Patient with Karla Amber STUDIO CAMERA OPERATOR 02/26/2020 Overweight Medical Established Patient with Karla Amber [facility] 07/23/2019 Z68.27 - Body mass index (BM I) 27.0-27.9, adult Medical Established Patient with Karla Amber STUDIO CAMERA OPERATOR 07/23/2019 Occasional asthma CPS- Asthma Clinic- F/U with Karla Amber [facility] 06/05/2019 Overweight CPS- Asthma Clinic- F/U with Karla Amber [facility] 06/05/2019 Z68.27 - Body mass index (BM I) 27.0-27.9 adult CPS- Asthma Clinic- F/U with Karla Amber [facility] 06/05/2019 Occasional asthma CPS Med Review with Karla Sandra dinh [facility] 04/23/2019 Overweight CPS Med Review with Karla Amber [facility] 04/23/2019 Z68.27 - Body mass index (BM I) 27.0-27.9 adult CPS Med Review with Karla Amber [facility] 04/23/2019 Acute pharyngitis Medical Established Patient with Brandy Kelley STUDIO CAMERA OPERATOR 04/15/2019 Asthmatic bronchitis with ac atka exacerbation Medical Established Patient with Brandy Kelley STUDIO CAMERA OPERATOR 04/15/2019 Fagerstrom Score was two Medical Establi shed Patient with Brandy Kelley STUDIO CAMERA OPERATOR 04/15/2019 PHQ-9: total score was three 04/15/2019 Medical Established Patient with Brandy Serranoer STUDIO CAMERA OPERATOR 04/15/2019 Body mass index Medical Established Patient with Kalra Clark STUDIO CAMERA OPERATOR 03/05/2019 Diabetes Risk Test Score was three score Medical Established Patient with Karlajulius Floresen STUDIO CAMERA OPERATOR 03/05/2019 Overweight Medical Established Patient with Karla Amber STUDIO CAMERA OPERATOR 03/05/2019 Z68.28 - Body mass index (BM I) 28.0-28.9, adult Medical Established Patient with Karla Amber STUDIO CAMERA OPERATOR 12/22/2018 Assess routine adult history and physical (18 - 64 yrs) Medical Established Patient with Karla Amber STUDIO CAMERA OPERATOR 11/06/2018 Overweight Medical Established Patient with Karla Amber STUDIO CAMERA OPERATOR 11/06/2018 Z68.28 - Body mass index (BM I) 28.0-28.9, adult Medical Established Patient with Karla Amber STUDIO CAMERA OPERATOR 11/06/2018 Assess dysphagia Medical Established Patient with Karla Amber STUDIO CAMERA OPERATOR 09/11/2018 Assess routine adult history and physical (18 - 64 yrs) Medical Established Patient with Karla Amber STUDIO CAMERA OPERATOR 09/11/2018 Assess primary insomnia with sleep apnea Medical Established Patient with Karla Amber STUDIO CAMERA OPERATOR 09/04/2018 Assess routine adult history and physical (18 - 64 yrs) Medical Established Patient with Karla Amber STUDIO CAMERA OPERATOR 09/04/2018 Overweight Medical Established Patient with Karla Amber STUDIO CAMERA OPERATOR 09/04/2018 Z68.29 - Body mass index (BM I) 29.0-29.9, adult Medical Established Patient with Karla Amber STUDIO CAMERA OPERATOR 09/04/2018 Assess vaginal candidiasis Medical Estab lished Patient with Karla Amber STUDIO CAMERA OPERATOR 07/31/2018 Findings Encounter Date Encounter for Immunization Nurse Visit with GaryNicolasa STUDIO CAMERA OPERATOR 03/14/2020 Body mass index Medical Established Patient with Karla Amber STUDIO CAMERA OPERATOR 02/26/2020 Overweight Medical Established Patient with Karla Amber STUDIO CAMERA OPERATOR 02/26/2020 Overweight Medical Established Patient with Karla Amber STUDIO CAMERA OPERATOR 07/23/2019 Z68.27 - Body mass index (BM I) 27.0-27.9, adult Medical Established Patient with Karla Amber STUDIO CAMERA OPERATOR 07/23/2019 Occasional asthma CPS- Asthma Clinic- F/U with Karlajulius Clark STUDIO CAMERA OPERATOR 06/05/2019 Overweight CPS- Asthma Clinic- F/U with Karla Amber STUDIO CAMERA OPERATOR 06/05/2019 Z68.27 - Body mass index (BM I) 27.0-27.9 adult CPS- Asthma Clinic- F/U with Karla Flroesen [facility] 06/05/2019 Occasional asthma CPS Med Review with Karla Flores allegra [facility] 04/23/2019 Overweight CPS Med Review with Karla Clark [facility] 04/23/2019 Z68.27 - Body mass index (BM I) 27.0-27.9 adult CPS Med Review with Karla Clark [facility] 04/23/2019 Acute pharyngitis [facility] Asthmatic bronchitis with ac atka exacerbation [facility]2019 Fagerstrom Score was two Medical Establi shed Patient with Brandy Kelley [facility] 04/15/2019 PHQ-9: total score was three 04/15/2019 [facility] Body mass index Medical Established Patient with Karla Clark [facility] 03/05/2019 Diabetes Risk Test Score was three score Medical Established Patient with Karla Clark [facility] 03/05/2019 Overweight Medical Established Patient with Karla Clark [facility] 03/05/2019 Z68.28 - Body mass index (BM I) 28.0-28.9, adult Medical Established Patient with Karla Clark [facility] 12/22/2018 Assess routine adult history and physical (18 - 64 yrs) Medical Established Patient with Karla Clark [facility] 11/06/2018 Overweight Medical Established Patient with Karla Clark [facility] 11/06/2018 Z68.28 - Body mass index (BM I) 28.0-28.9, adult Medical Established Patient with Karla Clark [facility] 11/06/2018 Assess dysphagia Medical Established Patient with Karla Clark [facility] 09/11/2018 Assess routine adult history and physical (18 - 64 yrs) Medical Established Patient with Karla Clark [facility] 09/11/2018 Assess primary insomnia with sleep apnea Medical Established Patient with Karla Clark [facility] 09/04/2018 Assess routine adult history and physical (18 - 64 yrs) [facility] Over[facility]04/2018 Z68.29 - Body mass index (BM I) 29.0-29.9, adult Medical Established Patient with Karla Clark [facility] 09/04/2018 Assess vaginal candidiasis Medical Estab lished Patient with Karla Amber [facility] 07/31/2018 Diagnosis Abnormal mammogram Abnormal mammogram, unspecified Diagnosis Abnormal mammogram Abnormal mammogram, unspecified Findings Encounter Date Antiasthmatics CPS Asthma Clinic-Ne w with Karlajulius Clark [facility] 05/06/2020 Assessment of tobacco use CPS Asthma Cli yash-New with Karlajulius Clark STUDIO CAMERA OPERATOR 05/06/2020 Body mass index CPS Asthma Clinic-Ne w with Karlajulius Clark [facility] 05/06/2020 Chronic obstructive pulmonary disease CP S Asthma Clinic-New with Karlajulius Clark [facility] 05/06/2020 Overweight CPS Asthma Clinic-Ne w with Karlajulius Clark [facility] 05/06/2020 Z11.4 - Encounter for screen ing for human immunodeficiency virus [HIV] CPS [facility]hma Clinic-New with Karlajuluis Clark [facility] 05/06/2020 Diabetes Risk Test Score was three score 03/31/2020 Medical Established Patient with Karlajulius Clark [facility] 03/31/2020 Overweight Medical Established Patient with Karlajulius Clark [facility] 03/31/2020 Z68.25 - Body mass index [BM I] 25.0-25.9, adult Medical Established Patient with Karla Amber [facility] 03/31/2020 Encounter for Immunization Nurse Visit with GaryNicolasa [facility] 03/14/2020 Body mass index Medical Established Patient with Karlajulius Clark [facility] 02/26/2020 Overweight Medical Established Patient with Karlajulius Clark [facility] 02/26/2020 Overweight Medical Established Patient with Karlajulius Clark [facility] 07/23/2019 Z68.27 - Body mass index (BM I) 27.0-27.9, adult Medical Established Patient with Karla Clark STUDIO CAMERA OPERATOR 07/23/2019 Occasional asthma CPS- Asthma Clinic- F/U with Karlajulius Clark [facility] 06/05/2019 Overweight CPS- Asthma Clinic- F/U with Karlajulius Clark [facility] 06/05/2019 Z68.27 - Body mass index (BM I) 27.0-27.9 adult CPS- Asthma Clinic- F/U with Karlajulius Clark [facility] 06/05/2019 Occasional asthma CPS Med Review with Karla Clark [facility] 04/23/2019 Overweight CPS Med Review with Karlajulius Clark [facility] 04/23/2019 Z68.27 - Body mass index (BM I) 27.0-27.9 adult CPS Med Review with Karla Clark [facility] 04/23/2019 Acute pharyngitis Medical Established Patient with Brandy Kelley STUDIO CAMERA OPERATOR 04/15/2019 Asthmatic bronchitis with ac atka exacerbation Medical Established Patient with Brandy Serranoer STUDIO CAMERA OPERATOR 04/15/2019 Fagerstrom Score was two Medical Establi shed Patient with Brandy Kelley STUDIO CAMERA OPERATOR 04/15/2019 PHQ-9: total score was three 04/15/2019 Medical Established Patient with Brandy Kelley STUDIO CAMERA OPERATOR 04/15/2019 Body mass index Medical Established Patient with Karla Clark STUDIO CAMERA OPERATOR 03/05/2019 Diabetes Risk Test Score was three score Medical Established Patient with Karla Clark [facility] 03/05/2019 Overweight Medical Established Patient with Karlajulius Clark [facility] 03/05/2019 Z68.28 - Body mass index (BM I) 28.0-28.9, adult Medical Established Patient with Karla Clark [facility] 12/22/2018 Assess routine adult history and physical (18 - 64 yrs) Medical Established Patient with Karlajulius Clark [facility] 11/06/2018 Overweight Medical Established Patient with Karlajulius Clark [facility] 11/06/2018 Z68.28 - Body mass index (BM I) 28.0-28.9, adult Medical Established Patient with Karlajulius Clark [facility] 11/06/2018 Assess dysphagia Medical Established Patient with Karlajulius Clark [facility] 09/11/2018 Assess routine adult history and physical (18 - 64 yrs) Medical Established Patient with Karlajulius Clark [facility] 09/11/2018 Assess primary insomnia with sleep apnea Medical Established Patient with Karlajulius Clark [facility] 09/04/2018 Assess routine adult history and physical (18 - 64 yrs) Medical Established Patient with Karlajulius Clark [facility] 09/04/2018 Overweight Medical Established Patient with Karlajulius Clark [facility] 09/04/2018 Z68.29 - Body mass index (BM I) 29.0-29.9, adult Medical Established Patient with Kalrajulius Clark [employer] 09/04/2018 Assess vaginal candidiasis Medical Estab lished Patient with Karlajulius Clark [facility] 07/31/2018 Diagnosis Abnormal ultrasound of breast Other (abnormal) findings on radiological examination of breast Lesion of breast Unspecified breast disorder Diagnosis Hyperprolactinemia (HCC) Other and unspecified anterior pituitary hyperfunction Findings Encounter Date Acute pharyngitis Medical Established Patient with Brandy Serranoer STUDIO CAMERA OPERATOR 04/15/2019 Asthmatic bronchitis with ac atka exacerbation Medical Established Patient with Brandy Serranoer STUDIO CAMERA OPERATOR 04/15/2019 Fagerstrom Score was two Medical Establi shed Patient with Brandy Kelley STUDIO CAMERA OPERATOR 04/15/2019 PHQ-9: total score was three 04/15/2019 Medical Established Patient with Brandy Warren STUDIO CAMERA OPERATOR 04/15/2019 Body mass index Medical Established Patient with Karla Clark STUDIO CAMERA OPERATOR 03/05/2019 Diabetes Risk Test Score was three score Medical Established Patient with Karla Amber STUDIO CAMERA OPERATOR 03/05/2019 Overweight Medical Established Patient with Karla Amber STUDIO CAMERA OPERATOR 03/05/2019 Z68.28 - Body mass index (BM I) 28.0-28.9, adult Medical Established Patient with Karla Amber STUDIO CAMERA OPERATOR 12/22/2018 Assess routine adult history and physical (18 - 64 yrs) Medical Established Patient with Karla Amber STUDIO CAMERA OPERATOR 11/06/2018 Overweight Medical Established Patient with Karla Amber STUDIO CAMERA OPERATOR 11/06/2018 Z68.28 - Body mass index (BM I) 28.0-28.9, adult Medical Established Patient with Karla Amber STUDIO CAMERA OPERATOR 11/06/2018 Assess dysphagia Medical Established Patient with Karla Amber STUDIO CAMERA OPERATOR 09/11/2018 Assess routine adult history and physical (18 - 64 yrs) Medical Established Patient with Karla Amber STUDIO CAMERA OPERATOR 09/11/2018 Assess primary insomnia with sleep apnea Medical Established Patient with Karla Amber STUDIO CAMERA OPERATOR 09/04/2018 Assess routine adult history and physical (18 - 64 yrs) Medical Established Patient with Karla Amber STUDIO CAMERA OPERATOR 09/04/2018 Overweight Medical Established Patient with Karla Amber STUDIO CAMERA OPERATOR 09/04/2018 Z68.29 - Body mass index (BM I) 29.0-29.9, adult Medical Established Patient with Karla Amber STUDIO CAMERA OPERATOR 09/04/2018 Assess vaginal candidiasis Medical Estab lished Patient with Karla Amber STUDIO CAMERA OPERATOR 07/31/2018 Findings Encounter Date Z68.24 - Body mass index [BM I] 24.0-24.9, adult Medical Established Patient with Karla Amber STUDIO CAMERA OPERATOR 06/17/2020 Overweight Medical Established Patient with Karla Amber STUDIO CAMERA OPERATOR 06/06/2020 Z68.25 - Body mass index [BM I] 25.0-25.9, adult Medical Established Patient with Karla Amber STUDIO CAMERA OPERATOR 06/06/2020 Antiasthmatics [facility] Asthma Clinic-Ne w with Karla Amber [facility] 05/06/2020 Assessment of tobacco use [facility] Body mass index CPS [facility]-Ne w with Karlajulius Clark STUDIO CAMERA OPERATOR 05/06/2020 Chronic obstructive pulmonary disease CP S [facility] Clinic-New with Karlajulius Clark STUDIO CAMERA OPERATOR 05/06/2020 Overweight CPS Asthma Clinic-Ne w with Karlajulius Clark [facility] 05/06/2020 Z11.4 - Encounter for screen ing for human immunodeficiency virus [HIV] CPS [facility] Clinic-New with Karla Amber STUDIO CAMERA OPERATOR 05/06/2020 Diabetes Risk Test Score was three score 03/31/2020 Medical Established Patient with Karla Amber [facility] 03/31/2020 Overweight Medical Established Patient with Karla Amber STUDIO CAMERA OPERATOR 03/31/2020 Z68.25 - Body mass index [BM I] 25.0-25.9, adult Medical Established Patient with Karla Amber STUDIO CAMERA OPERATOR 03/31/2020 Encounter for Immunization Nurse Visit with GaryNicolasa [facility] 03/14/2020 Body mass index Medical Established Patient with Karla Amber STUDIO CAMERA OPERATOR 02/26/2020 Overweight Medical Established Patient with Karla Amber [facility] 02/26/2020 Overweight Medical Established Patient with Karlajulius Clark STUDIO CAMERA OPERATOR 07/23/2019 Z68.27 - Body mass index (BM I) 27.0-27.9, adult Medical Established Patient with Karla Amber STUDIO CAMERA OPERATOR 07/23/2019 Occasional asthma CPS- Asthma Clinic- F/U with Karlajulius Clark [facility] 06/05/2019 Overweight CPS- Asthma Clinic- F/U with Karlajulius Clark STUDIO CAMERA OPERATOR 06/05/2019 Z68.27 - Body mass index (BM I) 27.0-27.9 adult CPS- Asthma Clinic- F/U with Karlajulius Clark [facility] 06/05/2019 Occasional asthma CPS Med Review with Karlajulius Clark [facility] 04/23/2019 Overweight CPS Med Review with Karlajulius Clark [facility] 04/23/2019 Z68.27 - Body mass index (BM I) 27.0-27.9 adult CPS Med Review with Karlajulius Clark [facility] 04/23/2019 Acute pharyngitis Medical Established Patient with Brandy Kelley STUDIO CAMERA OPERATOR 04/15/2019 Asthmatic bronchitis with ac atka exacerbation Medical Established Patient with Brandy Kelley STUDIO CAMERA OPERATOR 04/15/2019 Fagerstrom Score was two Medical Establi shed Patient with Brandy Kelley STUDIO CAMERA OPERATOR 04/15/2019 PHQ-9: total score was three 04/15/2019 Medical Established Patient with Brandy Kelley CNP 04/15/2019 Body mass index Medical Established Patient with Karlajulius Clark STUDIO CAMERA OPERATOR 03/05/2019 Diabetes Risk Test Score was three score Medical Established Patient with Karla Amber STUDIO CAMERA OPERATOR 03/05/2019 Overweight Medical Established Patient with Karla Amber STUDIO CAMERA OPERATOR 03/05/2019 Z68.28 - Body mass index (BM I) 28.0-28.9, adult Medical Established Patient with Karla Amber STUDIO CAMERA OPERATOR 12/22/2018 Assess routine adult history and physical (18 - 64 yrs) Medical Established Patient with Karla Amber STUDIO CAMERA OPERATOR 11/06/2018 Overweight Medical Established Patient with Karla Amber STUDIO CAMERA OPERATOR 11/06/2018 Z68.28 - Body mass index (BM I) 28.0-28.9, adult Medical Established Patient with Karla Amber STUDIO CAMERA OPERATOR 11/06/2018 Assess dysphagia Medical Established Patient with Karla Amber STUDIO CAMERA OPERATOR 09/11/2018 Assess routine adult history and physical (18 - 64 yrs) Medical Established Patient with Karla Amber STUDIO CAMERA OPERATOR 09/11/2018 Assess primary insomnia with sleep apnea Medical Established Patient with Karla Amber STUDIO CAMERA OPERATOR 09/04/2018 Assess routine adult history and physical (18 - 64 yrs) Medical Established Patient with Karla Amber STUDIO CAMERA OPERATOR 09/04/2018 Overweight Medical Established Patient with Karla Amber STUDIO CAMERA OPERATOR 09/04/2018 Z68.29 - Body mass index (BM I) 29.0-29.9, adult Medical Established Patient with Karlajulius Clark STUDIO CAMERA OPERATOR 09/04/2018 Assess vaginal candidiasis Medical Estab lished Patient with Karla Amber STUDIO CAMERA OPERATOR 07/31/2018 Findings Encounter Date Diabetes Risk Test Score was three score 03/31/2020 Medical Established Patient with Karla Amber STUDIO CAMERA OPERATOR 03/31/2020 Overweight Medical Established Patient with Karla Amber STUDIO CAMERA OPERATOR 03/31/2020 Z68.25 - Body mass index [BM I] 25.0-25.9, adult Medical Established Patient with Karla Amber STUDIO CAMERA OPERATOR 03/31/2020 Encounter for Immunization Nurse Visit with Gary e Amber STUDIO CAMERA OPERATOR 03/14/2020 Body mass index Medical Established Patient with Karla Amber STUDIO CAMERA OPERATOR 02/26/2020 Overweight Medical Established Patient with Karla Amber STUDIO CAMERA OPERATOR 02/26/2020 Overweight Medical Established Patient with Karla Amber STUDIO CAMERA OPERATOR 07/23/2019 Z68.27 - Body mass index (BM I) 27.0-27.9, adult Medical Established Patient with Karla Amber STUDIO CAMERA OPERATOR 07/23/2019 Occasional asthma CPS- Asthma Clinic- F/U with Karla Clark [facility] 06/05/2019 Overweight CPS- Asthma Clinic- F/U with Karlajulius Clark [facility] 06/05/2019 Z68.27 - Body mass index (BM I) 27.0-27.9 adult CPS- Asthma Clinic- F/U with Karlajulius Clark [facility] 06/05/2019 Occasional asthma CPS Med Review with Karla Flores allegra [facility] 04/23/2019 Overweight CPS Med Review with Karla Floresen [facility] 04/23/2019 Z68.27 - Body mass index (BM I) 27.0-27.9 adult CPS Med Review with Kralajulius Clark [facility] 04/23/2019 Acute pharyngitis Medical Established Patient with Brandy Serranoer [facility] 04/15/2019 Asthmatic bronchitis with ac [place] exacerbation Medical Established Patient with Brandy Warren [facility] 04/15/2019 Fagerstrom Score was two Medical Establi shed Patient with Brandy Serranoer [facility] 04/15/2019 PHQ-9: total score was three 04/15/2019 [facility] Body mass index Medical Established Patient with Karla Clark [facility] 03/05/2019 Diabetes Risk Test Score was three score Medical Established Patient with Karla Clark [facility] 03/05/2019 Overweight Medical Established Patient with Karla Amber [facility] 03/05/2019 Z68.28 - Body mass index (BM I) 28.0-28.9, adult Medical Established Patient with Karlajulius Clark [facility] 12/22/2018 Assess routine adult history and physical (18 - 64 yrs) Medical Established Patient with Karla Clark [facility] 11/06/2018 Overweight [facility] Z68.28 - Body mass index (BM I) 28.0-28.9, adult Medical Established Patient with Karla Clark [facility] 11/06/2018 Assess dysphagia Medical Established Patient with Karla Amber [facility] 09/11/2018 Assess routine adult history and physical (18 - 64 yrs) Medical Established Patient with Karla Amber [facility] 09/11/2018 Assess primary insomnia with sleep apnea Medical Established Patient with Karlajulius Clark [facility] 09/04/2018 Assess routine adult history and physical (18 - 64 yrs) Medical Established Patient with Karla Amber CNP 09/04/2018 Overweight Medical Established [facility]2018 Z68.29 - Body mass index (BM I) 29.0-29.9, adult Medical Established Patient with Karla Clark STUDIO CAMERA OPERATOR 09/04/2018 Assess vaginal candidiasis Medical Estab lished Patient with Karlajulius Clark STUDIO CAMERA OPERATOR 07/31/2018 Diagnosis Duct ectasia of breast, left Findings Encounter Date Body mass index Medical Established Patient with Karlajulius Clark STUDIO CAMERA OPERATOR 03/05/2019 Diabetes Risk Test Score was three score Medical Established Patient with Karla Amber STUDIO CAMERA OPERATOR 03/05/2019 Overweight Medical Established Patient with Karla Amber STUDIO CAMERA OPERATOR 03/05/2019 Z68.28 - Body mass index (BM I) 28.0-28.9, adult Medical Established Patient with Karlajulius Clark STUDIO CAMERA OPERATOR 12/22/2018 Assess routine adult history and physical (18 - 64 yrs) Medical Established Patient with Karla Amber STUDIO CAMERA OPERATOR 11/06/2018 Overweight Medical Established Patient with Karla Amber STUDIO CAMERA OPERATOR 11/06/2018 Z68.28 - Body mass index (BM I) 28.0-28.9, adult Medical Established Patient with Karla mAber STUDIO CAMERA OPERATOR 11/06/2018 Assess dysphagia Medical Established Patient with Karla Amber STUDIO CAMERA OPERATOR 09/11/2018 Assess routine adult history and physical (18 - 64 yrs) Medical Established Patient with Karla Amber STUDIO CAMERA OPERATOR 09/11/2018 Assess primary insomnia with sleep apnea Medical Established Patient with Karla Amber STUDIO CAMERA OPERATOR 09/04/2018 Assess routine adult history and physical (18 - 64 yrs) Medical Established Patient with Karla Amber STUDIO CAMERA OPERATOR 09/04/2018 Overweight Medical Established Patient with Karla Amber STUDIO CAMERA OPERATOR 09/04/2018 Z68.29 - Body mass index (BM I) 29.0-29.9, adult Medical Established Patient with Karlajulius Clark STUDIO CAMERA OPERATOR 09/04/2018 Assess vaginal candidiasis Medical Estab lished Patient with Karla Clark STUDIO CAMERA OPERATOR 07/31/2018 Instructions Instructions not supported for this document type No Instructions Recorded Instructions not supported for this document type No Instructions Recorded Instructions not supported for this document type No Instructions Recorded Instructions not supported for this document type No Instructions Recorded Instructions not supported for this document type No Instructions Recorded Instructions not supported for this document type No Instructions Recorded Instructions not supported for this document type No Instructions Recorded Instructions not supported for this document type No Instructions Recorded Instructions not supported for this document type No Instructions Recorded Instructions not supported for this document type No Instructions Recorded Instructions not supported for this document type No Instructions Recorded Instructions not supported for this document type No Instructions Recorded Instructions not supported for this document type No Instructions Recorded Instructions not supported for this document type No Instructions Recorded Instructions not supported for this document type No Instructions Recorded Instructions not supported for this document type No Instructions Recorded Instructions not supported for this document type No Instructions Recorded Instructions not supported for this document type No Instructions Recorded History of Present Illness History of Present Illness not supported for this document type No History of Present Illness Recorded History of Present Illness not supported for this document type No History of Present Illness Recorded History of Present Illness not supported for this document type No History of Present Illness Recorded History of Present Illness not supported for this document type No History of Present Illness Recorded History of Present Illness not supported for this document type No History of Present Illness Recorded History of Present Illness not supported for this document type No History of Present Illness Recorded History of Present Illness not supported for this document type No History of Present Illness Recorded History of Present Illness not supported for this document type No History of Present Illness Recorded History of Present Illness not supported for this document type No History of Present Illness Recorded History of Present Illness not supported for this document type No History of Present Illness Recorded History of Present Illness not supported for this document type No History of Present Illness Recorded History of Present Illness not supported for this document type No History of Present Illness Recorded History of Present Illness not supported for this document type No History of Present Illness Recorded History of Present Illness not supported for this document type No History of Present Illness Recorded History of Present Illness not supported for this document type No History of Present Illness Recorded History of Present Illness not supported for this document type No History of Present Illness Recorded History of Present Illness not supported for this document type No History of Present Illness Recorded History of Present Illness not supported for this document type No History of Present Illness Recorded Family History No Family History Records Found Description Last Updated No significant medical history in nuclea r family 07/31/2018 Description Last Updated No significant medical history in nuclea r family 07/31/2018 Last Documented On 9 2:12PM ; [facility] Description Last Updated No significant medical history in nuclea r family 07/31/2018 Last Documented On 9 2:12PM ; [facility] Description Last Updated No significant medical history in nuclea r family 07/31/2018 Last Documented On 9 2:12PM ; [facility] Description Last Updated No significant medical history in nuclea r family 07/31/2018 Last Documented On 9 2:12PM ; [facility] Relationship Condition Age at Onset Recorded Date/T aviva Not Specified Intellectual disability Unknown father History of coronary artery stent placement Unknown Coronary artery disease Unknown Not Specified Recurrent cerebrovas cular accidents (CVAs) Unknown brother Congestive heart failure Unknown Muscular dystrophy Unknown Description Last Updated No significant medical history in georgettea r family 07/31/2018 Last Documented On 9 2:12PM ; [facility] Description Last Updated Maternal history of breast neoplasm 02/02 Last Documented On 3 9:51AM ; [facility] No significant medical history in nuclea r family 07/31/2018 Last Documented On 9 2:12PM ; [facility] Relationship Condition Age at Onset Recorded Date/T aviva father History of coronary artery stent placement Unknown Coronary artery disease Unknown Not Specified Recurrent cerebrovas cular accidents (CVAs) Unknown brother Congestive heart failure Unknown Muscular dystrophy Unknown Description Last Updated Maternal history of breast neoplasm 02/02 Last Documented On 3 9:51AM ; [facility] No significant medical history in nuclea r family 07/31/2018 Last Documented On 9 2:12PM ; [facility] Review of System Review of Systems not supported for this document type No Review of Systems Recorded Review of Systems not supported for this document type No Review of Systems Recorded Review of Systems not supported for this document type No Review of Systems Recorded Review of Systems not supported for this document type No Review of Systems Recorded Review of Systems not supported for this document type No Review of Systems Recorded Review of Systems not supported for this document type No Review of Systems Recorded Review of Systems not supported for this document type No Review of Systems Recorded Review of Systems not supported for this document type No Review of Systems Recorded Review of Systems not supported for this document type No Review of Systems Recorded Review of Systems not supported for this document type No Review of Systems Recorded Review of Systems not supported for this document type No Review of Systems Recorded Review of Systems not supported for this document type No Review of Systems Recorded Review of Systems not supported for this document type No Review of Systems Recorded Review of Systems not supported for this document type No Review of Systems Recorded Review of Systems not supported for this document type No Review of Systems Recorded Review of Systems not supported for this document type No Review of Systems Recorded Review of Systems not supported for this document type No Review of Systems Recorded Review of Systems not supported for this document type No Review of Systems Recorded Physical Exam Physical Exam not supported for this document type No Physical Exam Recorded Physical Exam not supported for this document type No Physical Exam Recorded Physical Exam not supported for this document type No Physical Exam Recorded Physical Exam not supported for this document type No Physical Exam Recorded Physical Exam not supported for this document type No Physical Exam Recorded Physical Exam not supported for this document type No Physical Exam Recorded Physical Exam not supported for this document type No Physical Exam Recorded Physical Exam not supported for this document type No Physical Exam Recorded Physical Exam not supported for this document type No Physical Exam Recorded Physical Exam not supported for this document type No Physical Exam Recorded Physical Exam not supported for this document type No Physical Exam Recorded Physical Exam not supported for this document type No Physical Exam Recorded Physical Exam not supported for this document type No Physical Exam Recorded Physical Exam not supported for this document type No Physical Exam Recorded Physical Exam not supported for this document type No Physical Exam Recorded Physical Exam not supported for this document type No Physical Exam Recorded Physical Exam not supported for this document type No Physical Exam Recorded Physical Exam not supported for this document type No Physical Exam Recorded Physical Exam not supported for this document type No Physical Exam Recorded Physical Exam not supported for this document type No Physical Exam Recorded Physical Exam not supported for this document type No Physical Exam Recorded Physical Exam not supported for this document type No Physical Exam Recorded Physical Exam not supported for this document type No Physical Exam Recorded Physical Exam not supported for this document type No Physical Exam Recorded Physical Exam not supported for this document type No Physical Exam Recorded Physical Exam not supported for this document type No Physical Exam Recorded Physical Exam not supported for this document type No Physical Exam Recorded Physical Exam not supported for this document type No Physical Exam Recorded Physical Exam not supported for this document type No Physical Exam Recorded Physical Exam not supported for this document type No Physical Exam Recorded Physical Exam not supported for this document type No Physical Exam Recorded Physical Exam not supported for this document type No Physical Exam Recorded Physical Exam not supported for this document type No Physical Exam Recorded Physical Exam not supported for this document type No Physical Exam Recorded Advance Directives No Advanced Directives Records FoundDocuments on File Type Date Recorded Patient Safety Deposit Supervisor Expl anation ACP-Power of Meat Trimmer 08/01/2021 10:21 AM Latest Code Status on File Code Status Date Activated Date Inactivated Comments Full Code 03/23/2013 12:03 AM 03/23/2013 7:42 PM Documents on File Type Date Recorded Patient Safety Deposit Supervisor Expl anation Advance Directives and Living Will Power of Meat Trimmer Latest Code Status on File Code Status Date Activated Date Inactivated Comments Full Code 03/23/2013 12:03 AM 03/23/2013 7:42 PM Documents on File Type Date Recorded Patient Safety Deposit Supervisor Expl anation Advance Directives and Living Will Power of Meat Trimmer Documents on File Type Date Recorded Patient Safety Deposit Supervisor Expl anation ACP-Advance Directive ACP-Power of Meat Trimmer Documents on File Type Date Recorded Patient Safety Deposit Supervisor Expl anation ACP-Advance Directive ACP-Power of Meat Trimmer Documents on File Type Date Recorded Patient Safety Deposit Supervisor Expl anation ACP-Advance Directive ACP-Power of Meat Trimmer ACP-Power of Meat Trimmer 08/01/2021 10:21 AM Documents on File Type Date Recorded Patient Safety Deposit Supervisor Expl anation ACP-Advance Directive ACP-Power of Meat Trimmer ACP-Power of Meat Trimmer 08/01/2021 10:21 AM Directive Pat Aware Third Constitution Party Effective Date Reviewed Sta tus Advance Care Planning Yes 11/03/2021 Current and Verified Note: Discussed with patient about care planning in the future. Gave patient informational packet and was advised to fill out and bring back at next appointment. Documents on File Type Date Recorded Patient Safety Deposit Supervisor Expl anation ACP-Power of Meat Trimmer 08/01/2021 10:21 AM Advance Directive Response Recorded Date/ Time Advance Directives No September 10, 2 023 2:51pm Advance Directive Response Recorded Date/ Time Advance Directives No September 13, 2 023 7:15am Discharge Instructions * Instructions* Marina Ag I, RN - 04/10/2019 DISCHARGE INSTRUCTIONS FOR BREAST BIOPSY You have just had a breast biopsy. This procedure is to remove tissue in order to make a diagnosis.Here is some information and instructions to follow once you leave the Hospital. 1. When the anesthetic wears off you may experience mild discomfort or mild pain at the biopsy site. This is common and can be relieved with an hvbu-hra-anspkve (non-aspirin) analgesic such as Tylenol. Please follow the dose prescribed on the bottle. This discomfort will gradually subside in 6-24 hours. Do not use an aspirin containing product or anti-inflammatory medication (Advil, Motrin) for 48 hours after the biopsy. If you do it may cause bleeding from the biopsy site. You may resume thesemedications 48 hours after the biopsy (2 days). 2. Ice the biopsy area this evening on and off throughout the evening until you go to bed. (Example: on 20 min. and off 20 min.) This will help decrease bleeding, swelling, and pain and discomfort atthe biopsy site. 3. The biopsy site has a small bandage on the site. Keep the clear bandage on the incision. The clear bandage will protect the incision from getting wet in the shower. The clear bandage can get wet; just dry it off gently when you get out of the shower. The clear bandage can be removed in 1-2 days after the biopsy. 4. Sleep in a soft bra the first evening. This will help reduce discomfort and pain at the biopsy site and decrease the chance of bleeding. 5. Avoid unnecessary activity for the next 12 hour. If you are active, that may cause some bleedingfrom the incision site. Do not be alarmed as this happens occasionally. If you notice blood poolingunder the clear bandage put a fresh ice pack to the site with some pressure (as you would with any cut). Hold constant pressure to the site for 10-15 minutes and rest quietly. That usually stops the bleeding. If there is a large amount of blood under the clear bandage and it leaks out, wipe up the drainage and continue to put pressure at the site if it is still bleeding. If the bleeding doesn t stop please call your physician. 6. If your skin begins to blister or itch around the clear bandage you may be experiencing tape sensitivity or tape allergy. Gently remove the bandage and call your physician. 7. Biopsy results will be available 48-72 hours after the biopsy. Your doctor will receive the results directly from the Pathologist. Please call your doctor for the biopsy results or set up an appointment to obtain the results. documented in this encounter* Instructions* Marina Ag RN - 06/08/2020 DISCHARGE INSTRUCTIONS FOR BREAST BIOPSY You have just had a breast biopsy. This procedure is to remove tissue in order to make a diagnosis.Here is some information and instructions to follow once you leave the Hospital. 1. When the anesthetic wears off you may experience mild discomfort or mild pain at the biopsy site. This is common and can be relieved with an zchm-ily-fnmzozv (non-aspirin) analgesic such as Tylenol. Pleasefollow the dose prescribed on the bottle. This discomfort will gradually subside in 6- 24 hours. Do not usean aspirin containing product or anti-inflammatory medication (Advil, Motrin) for 48 hours after the biopsy. If you do it may cause bleeding from the biopsy site. You may resume these medications 48 hours after the biopsy(2 days). 2. Ice the biopsy area this evening on and off throughout the evening until you go to bed. (Example: on 20 min. and off 20 min.) This will help decrease bleeding, swelling, and pain and discomfort at the biopsy site. 3. The biopsy site has a small bandage on the site. Keep the clear bandage on the incision. The clear bandage will protect the incision from getting wet in the shower. The clear bandage can get wet; just dry it offgently when you get out of the shower. The clear bandage can be removed in 1-2 days after the biopsy. 4. Sleep in a soft bra the first evening. This will help reduce discomfort and pain at the biopsy site and decrease the chance of bleeding. 5. Avoid unnecessary activity for the next 12 hour. If you are active, that may cause some bleedingfrom the incision site. Do not be alarmed as this happens occasionally. If you notice blood pooling under the clear bandage put a fresh ice pack to the site with some pressure (as you would with any cut). Hold constant pressure to the site for 10-15 minutes and rest quietly. That usually stops the bleeding. If there is a large amount of blood under the clear bandage and it leaks out, wipe up the drainage and continue to put pressure at the site if it is still bleeding. If the bleeding doesn t stop please call your physician. 6. If your skin begins to blister or itch around the clear bandage you may be experiencing tape sensitivity or tape allergy. Gently remove the bandage and call your physician. 7. Biopsy results will be available 48-72 hours after the biopsy. Your doctor will receive the results directly from the Pathologist. Please call your doctor for the biopsy results or set up an appointment to obtain the results. documented in this encounter Reason for Referral Status Reason Specialty Diagnoses / Procedures Referre d By Contact Referred To Contact Closed Radiology Diagnoses Abnormal mammogram Procedures US BREAST COMPLETE LEFT HC US BREAST COMP Billy Ojeda MD [address] [place] [address] [address] [place] [address] [facility] Ultrasound [address] [place] [address] Status Reason Specialty Diagnoses / Procedures Referre d By Contact Referred To Contact Closed Radiology Diagnoses Abnormal mammogram Procedures LINDA DIGITAL DIAGNOSTIC W OR WO CAD LEFT Billy Ojeda MD [address] [place] [address] [address] [place] [address] Status Reason Specialty Diagnoses / Procedures Referre d By Contact Referred To Contact Closed Radiology Diagnoses Hyperprolactinemia (HCC) Procedures MRI BRAIN W WO CONTRAST Karla Clark, FIRST COAT OPERATOR - STUDIO CAMERA OPERATOR [address] [place] [address] Status Reason Specialty Diagnoses / Procedures Referre d By Contact Referred To Contact Open Diagnoses Duct ectasia of breast, left Procedures US BREASt COMPLETE LEFT HC US BREAST COMP She Spencer APRN - CNM [address] [id number] Status Reason Specialty Diagnoses / Procedures Referre d By Contact Referred To Contact Closed Radiology Diagnoses History of breast biopsy Procedures LINDA ERYN DIGITAL DIAGNOSTIC BILATERAL She Spencer APRN - CNM [address] [place] [address] [place] [address] [facility] [address] [place] [address] Specialty Diagnoses / Procedures Referred By Oni gardner Referred To Contact Radiology Diagnoses Breast lump on right side at 4 o'clock position Procedures MRI BREAST BILATERAL W CONTRAST She Spencer APRN - CNM [address] [place] [address] [place] [address] Referral ID Status Reason Start Date Expiration Date Visits Re quested Visits Authorized [id number] Closed 07/19/2021 07/19/2022 1 1 Specialty Diagnoses / Procedures Referred By Oni gardner Referred To Contact Cardiology Diagnoses Pre-operative clearance Abnormal EKG History of NH (myocardial infarction) Procedures ECHO Complete 2D W Doppler W Color Héctor Turner MD [address] [place] [address] Referral ID Status Reason Start Date Expiration Date Visits Re quested Visits Authorized [id number] Closed 01/01/2022 01/01/2023 1 1 Summary Purpose Chief Complaint and Reason for Visit Chief Complaint Fracture Chief Complaint M25.511 Fracture Fracture Chief Complaint M25.511 Fracture Fracture S42.291D Chief Complaint S42.291D BH S42.291D Chief Complaint lithium schizaffective disorder- pink Reason for Visit Abdominal pain Flank pain Hypertension Prolonged Q-T interval on ECG Schizoaffective disorder Chief Complaint lithium schizaffective disorder- pink Schizoaffective Disorder Reason for Visit Abdominal pain Flank pain Hypertension Prolonged Q-T interval on ECG Schizoaffective disorder Abdominal pain MYESHA (acute kidney injury) Flank pain Nausea & vomiting Schizoaffective disorder Additional Source Comments Evaluations & Outcomes (unre cognized section and content) Includes: Evaluations & Outcomes for active GoalsNo Outcomes Recorded Includes: Evaluations & Outcomes for active GoalsNo Outcomes Recorded Includes: Evaluations & Outcomes for active GoalsNo Outcomes Recorded Includes: Evaluations & Outcomes for active GoalsNo Outcomes Recorded Includes: Evaluations & Outcomes for active GoalsNo Outcomes Recorded Includes: Evaluations & Outcomes for active GoalsNo Outcomes Recorded Includes: Evaluations & Outcomes for active GoalsNo Outcomes Recorded Includes: Evaluations & Outcomes for active GoalsNo Outcomes Recorded Includes: Evaluations & Outcomes for active GoalsNo Outcomes Recorded Includes: Evaluations & Outcomes for active GoalsNo Outcomes Recorded Includes: Evaluations & Outcomes for active GoalsNo Outcomes Recorded Includes: Evaluations & Outcomes for active GoalsNo Outcomes Recorded Includes: Evaluations & Outcomes for active GoalsNo Outcomes Recorded Includes: Evaluations & Outcomes for active GoalsNo Outcomes Recorded Includes: Evaluations & Outcomes for active GoalsNo Outcomes Recorded Includes: Evaluations & Outcomes for active GoalsNo Outcomes Recorded Includes: Evaluations & Outcomes for active GoalsNo Outcomes Recorded Includes: Evaluations & Outcomes for active GoalsNo Outcomes Recorded Reason for Visit (unrecogniz ed section and content) Status Reason Specialty Diagnoses / Procedures Referre d By Contact Referred To Contact Closed Radiology Diagnoses Abnormal mammogram of left breast Procedures US BREAST BIOPSY W LOC DEVICE EACH ADDL LESION LEFT Billy Ojeda MD [address] [facility] [address] [place] [address] Status Reason Specialty Diagnoses / Procedures Referre d By Contact Referred To Contact Closed Radiology Diagnoses Abnormal mammogram Procedures US BREAST COMPLETE LEFT HC US BREAST COMP Billy Ojeda MD [address] [place] [address] [place] [address] [facility] Ultrasound [address] [place] [address] Status Reason Specialty Diagnoses / Procedures Referred By Contact Referred To Contact Pending Review Radiology Diagnoses Abnormal mammogram Procedures LINDA ERYN DIGITAL DIAGNOSTIC BILATERAL LINDA DIGITAL DIAGNOSTIC W OR WO CAD LEFT HC MAMMO DGX UNILATERAL INCL CAD IF PERF Billy Ojeda MD [address] [place] [address] [place] [address] [facility] [address] [place] [address] Status Reason Specialty Diagnoses / Procedures Referre d By Contact Referred To Contact Open Radiology Diagnoses Abnormal ultrasound of breast Lesion of breast Procedures US BREAST BIOPSY W LOC DEVICE 1ST LESION LEFT US GUIDED LEFT BREAST BIOPSY Billy Ojeda MD [address] [place] [address] [place] [address] [facility]ound [address] [place] [address] Status Reason Specialty Diagnoses / Procedures Referre d By Contact Referred To Contact Closed Radiology Diagnoses Abnormal mammogram Procedures LINDA DIGITAL DIAGNOSTIC W OR WO CAD LEFT Billy Ojeda MD [address] [place] [address] Status Reason Specialty Diagnoses / Procedures Referred By Contact Referred To Contact Pending Review Radiology Diagnoses Hyperprolactinemia Procedures HC MRI-BRAIN WO & W CONTRAST Karla Clark, FIRST COAT OPERATOR - STUDIO CAMERA OPERATOR [address] [place] [address] [facility] Mri [address] [place] [address] Status Reason Specialty Diagnoses / Procedures Referre d By Contact Referred To Contact Open Diagnoses Duct ectasia of breast, left Procedures US BREASt COMPLETE LEFT HC US BREAST COMP She Spencer, FIRST COAT OPERATOR - CNM [address] [place] [address] Status Reason Specialty Diagnoses / Procedures Referre d By Contact Referred To Contact Closed Radiology Diagnoses History of breast biopsy Procedures LINDA ERYN DIGITAL DIAGNOSTIC BILATERAL She Spencer, RODNEY Diaz CNM [address] [facility] [address] [place] [address] [facility] [address] [place] [address] Specialty Diagnoses / Procedures Referred By Contac t Referred To Contact Radiology Diagnoses Breast lump on right side at 4 o'clock position Procedures MRI BREAST BILATERAL W CONTRAST She Spencer, RODNEY Diaz CNM [address] [facility] [address] [place] [address] Referral ID Status Reason Start Date Expiration Date Visits Re quested Visits Authorized [id number] Closed 07/19/2021 07/19/2022 1 1 Specialty Diagnoses / Procedures Referred By Contac t Referred To Contact Cardiology Diagnoses Pre-operative clearance Abnormal EKG History of NH (myocardial infarction) Procedures ECHO Complete 2D W Doppler W Color Héctor Turner MD [address] [place], [place] [id number] Referral ID Status Reason Start Date Expiration Date Visits Re quested Visits Authorized [id number] Closed 01/01/2022 01/01/2023 1 1 Specialty Diagnoses / Procedures Referred By Contac t Referred To Contact Dermatology Diagnoses neoplasm of uncertain behavior of skin Karla Clark MD [address] [place] [address] Dakota Mack MD [address] [facility] [address] [place] [address] Referral ID Status Reason Start Date Expiration Date Visits Re quested Visits Authorized [id number] Closed 06/13/2023 12/10/2023 1 1 Medical History (unrecognize d section and content) Description Patient gave verbal consent for teleheal 08/31/2019 History of abnormal electrocardiogram History of asthma 07/31/2018 History of cardiovascular disorder 07/31 History of respiratory disorder 07/31/19 19 History of bipolar disorder NOS 07/31/19 19 History of depression 07/31/2018 History of psychiatric disorders 019 Description Last Updated A recent immunization for flu 05/06/2020 Patient gave verbal consent for teleheal th 08/31/2019 History of abnormal electrocardiogram History of asthma 07/31/2018 History of cardiovascular disorder 07/31 History of respiratory disorder 07/31/19 19 History of bipolar disorder NOS 07/31/19 19 History of depression 07/31/2018 History of psychiatric disorders 019 INFORMATION SOURCE (unrecogn ized section and content) DATE CREATED AUTHOR 2020 [facility] DATE CREATED AUTHOR AUTHOR'S ORGANIZ ATION 10/26/2021 [facility] DATE CREATED AUTHOR AUTHOR'S ORGANIZ ATION 11/10/2022 [facility] DATE CREATED AUTHOR AUTHOR'S ORGANIZ ATION 02/03/2023 [facility] DATE CREATED AUTHOR AUTHOR'S ORGANIZ ATION 06/05/2023 [facility] DATE CREATED AUTHOR AUTHOR'S ORGANIZ ATION 07/12/[address] [facility] DATE CREATED AUTHOR AUTHOR'S ORGANIZ ATION 07/13/2023 [facility] DATE CREATED AUTHOR AUTHOR'S ORGANIZ ATION 07/18/2023 [facility] EPIC Care Teams (unrecognized sec tion and content) Team Status: Active Member Role Status Dates Karla Clark APRN SOLIDS CONTROL TECHNICIAN-C Primary Care Provider Activ e Team Status: Active Member Role Status Dates Karla Clark APRN SOLIDS CONTROL TECHNICIAN-C Primary Care Provider Activ mary anne Davis MD Attending Provider Active Team Status: Inactive Member Role Status Dates Karla Clark APRN SOLIDS CONTROL TECHNICIAN-C Primary Care Provider Activ mary anne Adame DO Attending Provider Active Wire Brush Maker Relationship Specialty Start Date End Date Karla Clark APRN - STUDIO CAMERA OPERATOR [address] [place] [address] PCP - General 02/23/16 Wire Brush Maker Relationship Specialty Start Date End Date Karla Clark APRN - STUDIO CAMERA OPERATOR [address] [place] [address] PCP - General 02/23/16 Wire Brush Maker Relationship Specialty Start Date End Date Karla Clark, FIRST COAT OPERATOR - STUDIO CAMERA OPERATOR [address] [place] [address] PCP - General 02/23/16 Wire Brush Maker Relationship Specialty Start Date End Date Karla Clark, FIRST COAT OPERATOR - STUDIO CAMERA OPERATOR [address] [place] [address] PCP - General 02/23/16 Team Status: Inactive Member Role Status Dates Emory Adame , Attending Provider Active Team Status: Inactive Member Role Status Dates Emory Adame , DO Attending Provider Active Karla Blackburn Amber , FIRST COAT OPERATOR SOLIDS CONTROL TECHNICIAN-C Primary Care Provider Activ e Team Status: Inactive Member Role Status Dates Emory Adame , DO Attending Provider Active PHYSICIAN NO FAMILY Primary Care Provider Active Team Status: Active Member Role Status Dates NON STAFF Primary Care Provider Active Team Status: Inactive Member Role Status Dates Karla Blackburn Amber , FIRST COAT OPERATOR SOLIDS CONTROL TECHNICIAN-C Primary Care Provider Activ e Zak Bee , DO Attending Provider Active Team Status: Inactive Member Role Status Dates Joe Davis MD Admit Provider, Attending Alpa mejia Active NON STAFF Primary Care Provider Active Cecilia Soares , TAWANNA Other Provider Active Florencia Pizarro , RN Other Provider Active Stacey Hudson , RN Other Provider Active Ann-Marie Sams , RN Other Provider Active Lisseth Galvan , TAWANNA Other Provider Active Ragini Quiñonez , RN Other Provider Active Ana Milan , FIRST COAT OPERATOR Other Provider Active Barbie Choi , DO Other Provider Active Braden Dill MD Other Provider Active Chandu Villafana , DO Other Provider Active Thomas Mendez MD Other Provider Active Kathrine Naik MD Other Provider Active Mariana Kee , ANP-BC Other Provider Active Angel Haley MD Other Provider Active Link Salazar MD Other Provider Active Rosa Lowe MD Other Provider Active Brad Peng MD Other Provider Active Khalif Pettit , DO Other Provider Active Sherif Campbell MD Other Provider Active Francisco Keene MD Other Provider Active Roseline Aguilar , SOLIDS CONTROL TECHNICIAN-C Other Provider Active Jaswinder Robert MD Other Provider Active Titus Christianson MD Other Provider Active Kody Leon MD Other Provider Active Gibson Cid MD Other Provider Active Yolanda Davila , DO Other Provider Active Jeancarlos Bonilla , DO Other Provider Active Scottie Quinn , DO Other Provider Active Maddy Hallman , FIRST COAT OPERATOR Other Provider Active Jose Huang , DO Other Provider Active Naga Lundberg MD Other Provider Active Leny Spencer , FIRST COAT OPERATOR Other Provider Active Winnie Jenkins , FIRST COAT OPERATOR Other Provider Active Greg Ocampo MD Other Provider Active oLy Rivers MD Other Provider Active Ludwig Amador , DO Other Provider Active Pinky Jewell , FIRST COAT OPERATOR Other Provider Active Alice Grimaldo , TAWANNA Other Provider Active Team Status: Inactive Member Role Status Dates NON STAFF Primary Care Provider Active Joe Davis MD Admit Provider, Attending P jackie Active Cecilia Soares , RN Other Provider Active Florencia Pizarro , RN Other Provider Active Stacey Hudson , RN Other Provider Active Ann-Marie Sams , RN Other Provider Active Lisseth Galvan , TAWANNA Other Provider Active Ragini Quiñonez , TAWANNA Other Provider Active Chris Adam MD Other Provider Active Ana Milan , FIRST COAT OPERATOR Other Provider Active Barbie Choi , DO Other Provider Active Braden Dill MD Other Provider Active Chandu Villafana , DO Other Provider Active Thomas Mendez MD Other Provider Active Kathrine Naik MD Other Provider Active Mariana Pryor , FIRST COAT OPERATOR Other Provider Active Angel Haley MD Other Provider Active Link Salazar MD Other Provider Active Rosa Lowe MD Other Provider Active Brad Peng MD Other Provider Active Khalif Pettit , DO Other Provider Active Sherif Campbell MD Other Provider Active Francisco Keene MD Other Provider Active Roseline Aguilar , SOLIDS CONTROL TECHNICIAN-C Other Provider Active Jaswinder Robert MD Other Provider Active Titus Christianson MD Other Provider Active Kody Leon MD Other Provider Active Gibson Cid MD Other Provider Active Yolanda Davila , DO Other Provider Active Jeancarlos R Chad , DO Other Provider Active Scottie Quinn , DO Other Provider Active Maddy Hallman , FIRST COAT OPERATOR Other Provider Active Jose Huang , DO Other Provider Active Naga Lundberg MD Other Provider Active Leny Spencer , FIRST COAT OPERATOR Other Provider Active Winnie Jenkins , FIRST COAT OPERATOR Other Provider Active Greg Ocampo MD Other Provider Active Loy Rivers MD Other Provider Active Ludwig Amador , DO Other Provider Active Pinky Jewell , FIRST COAT OPERATOR Other Provider Active London Mccann , DO Other Provider Active Alice Grimaldo , TAWANNA Other Provider Active Team Status: Inactive Member Role Status Dates Joe Davis MD Admit Provider, Attending Alpa mejia Active NON STAFF Primary Care Provider Active Cecilia Soares , RN Other Provider Active Florencia Pizarro , TAWANNA Other Provider Active Stacey Hudson , RN Other Provider Active Ann-Marie Sams , TAWANNA Other Provider Active Lisseth Galvan , TAWANNA Other Provider Active Ragini Quiñonez , TAWANNA Other Provider Active Ana Milan , FIRST COAT OPERATOR Other Provider Active Barbie Choi , DO Other Provider Active Braden Dill MD Other Provider Active Chandu Villafana , DO Other Provider Active Thomas Mendez MD Other Provider Active Kathrine Naik MD Other Provider Active Mariana Pryor , FIRST COAT OPERATOR Other Provider Active Angel Haley MD Other Provider Active Link Salazar MD Other Provider Active Rosa Lowe MD Other Provider Active Brad Peng MD Other Provider Active Khalif Pettit , DO Other Provider Active Sherif Campbell MD Other Provider Active Francisco Keene MD Other Provider Active Roseline Aguilar , SOLIDS CONTROL TECHNICIAN-C Other Provider Active Jaswinder Robert MD Other Provider Active Titus Christianson MD Other Provider Active Kody Leon MD Other Provider Active Gibson Cid MD Other Provider Active Yolanda Davila , DO Other Provider Active Jeancarlos R Chad , DO Other Provider Active Scottie Quinn , DO Other Provider Active Maddy Hallman , FIRST COAT OPERATOR Other Provider Active Jose Huang , DO Other Provider Active Naga Lundberg MD Other Provider Active Leny Spencer , FIRST COAT OPERATOR Other Provider Active Winnie Jenkins , FIRST COAT OPERATOR Other Provider Active Greg Ocampo MD Other Provider Active Loy Rivers MD Other Provider Active Ludwig Amador , DO Other Provider Active Pinky Jewell [employer] Other Provider Active Alice Grimaldo RN Other Provider Active Goals (unrecognized section and content) Goals may be documented in a n alternate section FOR RECORDS PERTAINING TO PATIENTS WHO ARE OR HAVE BEEN ENROLLED IN A CHEMICAL DEPENDENCY/SUBSTANCEABUSE PROGRAM, SOME INFORMATION MAY BE OMITTED. This clinical summary was aggregated from multiple sources. Caution should be exercised in using it in the provision of clinical care. This summary normalizes information from multiple sources, and as a consequence, information in this document may materially change the coding, format and clinical context of patient data. In addition, data may be omitted in some cases. CLINICAL DECISIONS SHOULD BE BASED ON THE PRIMARY CLINICAL RECORDS. [employer] provides no warranty or guarantee of the accuracy or completeness of information in this document.
[2023-07-29 08:28] LABS: Chol HDL Ratio 2.9; Cholesterol 163 mg/dL (<=200); Glucose 148 mg/dL (74-106); HDL Cholesterol 57 mg/dL (40-60); Triglycerides 158 mg/dL (<=150); VLDL CHOLESTEROL 31.6 mg/dL
[2023-07-29 08:36] LABS: Estimated GFR (African America 43 (>=60); Estimated GFR (Non-African Ame 35 (>=60); Thyroid Stimulating Hormone 0.819 uIU/mL (0.358-3.740)
[2023-07-30 05:08] LABS: Lithium (Eskalith(R)), Serum 0.5 mmol/L (0.5-1.2)
== END 2023-07-29 00:45 | disposition home or self-care (01) ==
LOC: LAB 00:44
PROVIDERS: Visit Provider Psychiatry & Neurology Psychiatry
DX: Z79.899 Other long term (current) drug therapy (principal); F25.9 Schizoaffective disorder, unspecified
CPT/HCPCS: 36415; 80061; 80178; 82565; 82947; 84443

== ENCOUNTER 2023-09-30 08:56 | Outpatient (REF) | payer MEDICARE, MEDICAID, SELFPAY | END 2023-09-30 08:57 | disposition home or self-care (01) | LOC: LAB 08:56 | DX: E07.89 Other specified disorders of thyroid (principal) | CPT/HCPCS: 36415; 84436; 84443 ==

== ENCOUNTER 2024-01-14 05:20 | Emergency (ER) | payer MEDICARE, MEDICAID, SELFPAY ==
[2024-01-14 05:28] VITALS: BP 167/85; PULSE 58; TEMP 36.9; BMI 25.7
--- OUTSIDE RECORDS SUMMARY | 2024-01-14 05:42 | XMS_ITS | CCD ---
Author Organization [facility] Care Team Providers Care Boat Hand Name Role Phone Amber, Karla Unavailable Unavailable Sprout Unavailable Unavailable Beavers, Kristine Unavailable Unavailable Amber, Karla Unavailable Unavailable Amber, Karla Unavailable Unavailable JORGE Unavailable Unavailable Amber Karla Primary Care Physician Unavailab le Sprout Unavailable Unavailable Beavers, Kristine Unavailable Unavailable Amber, Karla Unavailable Unavailable Amber, Karla Primary Care Provider Amber Karla M Primary Care Provider Karla Clark Primary Care Provider [phone] Karla Clark M Primary Care Provider [phone] AMBER KARLA M Referring Unavailable AMBER, KARLA M Primary Care Unavailable AMBER, KARLA M Referring Unavailable AMBER, KARLA M Primary Care Unavailable AMBER, KARLA M Referring Unavailable AMBER, KARLA M Primary Care Unavailable Amber CHILD CARE SUPERVISOR - COTTON DISPATCHER, Karla M Primary Care Provider Karla Clark CNP Primary Care Provider [phone] Amber CROOKS Karla Unavailable Roseline Meraz Primary Care Physician [phone] Amber CHILD CARE SUPERVISOR - DAKSHA Karla M Primary Care Provider Amber CHILD CARE SUPERVISOR - DAKSHA Karla M Primary Care Provider Karla Clark CNP Primary Care Provider Emory Adame Unavailable DO Emory Adame Attending Provider [phone] RODNEY Clark Primary Care Provider NO FAMILY, PHYSICIAN Primary Care Provider Unava [...] Unavailable DENISHA ., BRADY Admitting Unavailable DENISHA Torrez, BRADY Attending Unavailable DR HÉCTOR HO Consulting Unavailable DENISHA ., BRADY Consulting Unavailable Amber, CHILD CARE SUPERVISOR Karla M Primary Care Provider [phone] DO Emory Adame Attending Provider [phone] MD Monster Davis Attending Provider KARLA CLARK Primary Care Unavailable HÉCTOR TURNER Referring Unavailable KARLA CLARK M Primary Care Unavailable SHE SPENCER Referring Unavailabl e HORTENCIA, SHE WALLS Referring Unavailabl e KARLA CLARK Primary Care Unavailable Amber, RODNEY Blackburn Primary Care Provider Juaquin, DO Crespo Attending Provider MD Joe Davis Admit Provider MD Joe Davis Attending Provider NON STAFF Primary Care Provider UnavailTAWANNA Baker Other Provider Unavailable TAWANNA Pizarro Other Provider Unavailable TAWANNA Hudson Other Provider Unavailable TAWANNA Sams Other Provider Unavailable TAWANNA Galvan Other Provider Unavailable TAWANNA Quiñonez Other Provider Unavailable Dials, CHILD CARE SUPERVISOR Ana Alexey Other Provider DO Barbie Choi Other Provider MD Braden Dill Other Provider DO Chandu Villafana Other Provider [phone] MD Thomas Mendez Other Provider MD Kathrine Naik Other Provider TOMER Kee-BC Mariana Other Provider MD Angel Haley Other Provider MD Link Salazar Other Provider MD Rosa Lowe Other Provider MD Brad Peng Other Provider DO Khalif Pettit Other Provider MD Sherif Campbell Other Provider MD Francisco Keene Other Provider Lauren, WATCH REPAIR TECHNICIAN-C Roseline Ponce Other Provider MD Jaswinder Robert Other Provider MD Titus Christianson Other Provider MD Kody Leon Other Provider MD Gibson Cid Other Provider DO Yolanda Davila Other Provider DO Jeancarlos Bonilla Other Provider DO Scottie Quinn Other Provider RODNEY Hallman Other Provider DO Jose Huang Other Provider MD Naga Lundberg Other Provider RODNEY Spencer Other Provider RODNEY Jenkins Other Provider MD Greg Ocampo Other Provider MD Loy Rivers Other Provider DO Ludwig Amador Other Provider RODNEY Jewell Other Provider TAWANNA Grimaldo Other Provider Unavailable RODNEY Pryor Other Provider MD Chris Adam Other Provider RamyDO Kirkaline Other Provider MARÍA, YANDEL Referring Unavailable SCHARPF, YANDEL Referring Unavailable SCHARPF, YANDEL Referring Unavailable Unavailable Primary Care Provider Unavailabl e NON STAFF Primary Care Provider Unavaillizzette e DO Nimesh Westfall Emergency Provider [phone] MD Joe Davis Admit Provider MD Joe Davis Attending Provider DO Alannah James Attending Provider [phone] Lorenza HUNG, Deepti Hendricks Unavailable [phone] SCHARPF, YANDEL Attending Unavailable SCHARPF, YANDEL Referring Unavailable SCHARPF, YANDEL Attending Unavailable SCHARPF, YANDEL Admitting Unavailable SCHARPF, YANDEL Attending Unavailable SCHARPF, YANDEL Attending Unavailable SCHARPF, YANDEL Attending Unavailable DAKOTA MACK Attending Unavailable KARLA CLARK Referring Unavailable JOHAN HOWELL Attending Unavailable MURCEK, ALANNAH Torres Attending Unavailable JOHAN HOWELL Referring Unavailable MURCEK, ALANNAH Torres Attending Unavailable MURCEK, ALANNAH Torres Referring Unavailable MURCEK, ALANNAH Torres Attending Unavailable MURAMANDAK, ALANNAH Torres Attending Unavailable RODNEY Clark Primary Care Provider [phone] MD Joe Davis Attending Provider [phone] NON STAFF Primary Care Provider UnavailHANDY Garcia Emergency Provider MD Joe Davis Admit Provider Karla Clark Primary Care Unavailable Joe Davis Admitting Unavailab le Joe Davis Attending Unavailab le NON STAFF Primary Care Unavailable Reynaldo Kratf Attending Unavailable Joe Davis Admitting Unavailab le Reynaldo Kraft Attending Unavailable Joe Davis Admitting Unavailab le NON STAFF Primary Care Unavailable Cecilia Soares Unavailable Joe Davis Admitting Unavailab le Joe Davis Attending Unavailab le NON STAFF Primary Care Unavailable Gearheart, Florencia Consulting Unavailable Tristan, Stacey Consulting Unavailable Denstasha, Ann-Marie Consulting Unavailable Mandy, Lisseth Consulting Unavailable Olamide, Ragini Consulting Unavailable Chris Adam Consulting Unavailable Dials, Ana M Consulting Unavailable Steph, Ronobir Consulting Unavailable Aniyah, Braden Consulting Unavailable Lindnighatm, Chandu Consulting Unavailabl e Vanessa, Thomas Consulting Unavailable Heena, Kathrine Consulting Unavailable Mariana Pryor Consulting Unavailabl e Wassonimisha, Marwan Consulting Unavailable Zraik, Link Consulting Unavailable Lowe, Rosa Consulting Unavailable rBad Peng Consulting Unavailable Khalif Pettit Consulting Unavailable Sherif Campbell Consulting Unavailable Francisco Keene Consulting Unavailable Roseline Aguilar Consulting Unavailable Jaswinder Robert Consulting Unavailab Titus Muir Consulting Unavailable Kody Leon Unavailable Gibson Cid Consulting Unavailable Yolanda Davila Consulting Unavailable Jeancarlos Bonilla Consulting Unavailable Scottie Quinn Consulting Unavailable Obika, Maddy Consulting Unavailable Jose Huang Consulting Unavailable Daromar, Obaydah M Consulting Unavailable Leny Spencer Consulting Unavailable Winnie Jenkins Consulting Unavailable Alahmad, Alaa Consulting Unavailable Loy Rivers Consulting Unavailable Ludwig Amador Consulting Unavailable Pinky Jewell Consulting Unavailable London Mccann Consulting Unavailable Alice Grimaldo Consulting Unavailable Joe Davis Admitting Unavailab Cecilia Carpenter Consulting Unavailable Joe Davis Attending Unavailab le NON STAFF Primary Care Unavailable Gearheart, Florencia Consulting Unavailable Tristan Stacey Consulting Unavailable Denstasha, Ann-Marie Consulting Unavailable Mandy Lisseth Consulting Unavailable Olamide, Ragini Consulting Unavailable Dials, Ana M Consulting Unavailable Steph, Ronobir Consulting Unavailable Aniyah, Braden Consulting Unavailable Lindbloom, Chandu Consulting Unavailabl e Vanessa, Thomas Consulting Unavailable Uyenskdorae, Kathrine Consulting Unavailable Mariana Pryor Consulting Unavailabl e Wassouf, Marwan Consulting Unavailable Zraik, Link Consulting Unavailable Lowe, Rosa Consulting Unavailable Brad Peng Consulting Unavailable Khalif Pettit Consulting Unavailable Sherif Campbell Consulting Unavailable Francisco Keene Consulting Unavailable Roseline Aguilar Consulting Unavailable Jaswinder Robert Consulting Unavailab Titus Muir Consulting Unavailable Kody Leon Consulting Unavailable Gibson Cid Consulting Unavailable Yolanda Davila Unavailable Jeancarlos Bonilla Consulting Unavailable Scottie Quinn Consulting Unavailable ObMaddy robb Consulting Unavailable Jose Huang Consulting Unavailable Daromar Obaydah M Consulting Unavailable Leny Spencer Consulting Unavailable MohWinnie hernandez Consulting Unavailable Alaletaad Alamaryan Consulting Unavailable Loy Rivers Consulting Unavailable Ludwig Amador Consulting Unavailable Pinky Jewell Consulting Unavailable Alice Grimaldo Consulting Unavailable Alannah James Attending Unavailable Alannah James Admitting Unavailable NON STAFF Primary Care Unavailable PayZak Admitting Unavailable Karla Clark Primary Care Unavailable Zak Reza Attending Unavailable Allergies Allergy Classification Reported Allergen(s) Allergy Type Date of Onset Reaction(s) Facility Aluminum aspirin (1 source) Aluminum aspirin Drug Allergy [facility] Aspirin (1 source) Aspirin Drug Allergy [facility] Barbiturates (1 source) Barbiturates Drug Allergy 014 Other (See Comments) [facility] Corticosteroids (1 source) predniSONE Drug Allergy 015 [facility] NSAIDs (1 source) Ibuprofen Drug Allergy 018 [facility] Opioid Agonists (3 sources) Codeine Drug Allergy unknown [facility] Penicillins (antibiotic) (2 sources) Penicillins Drug Allergy Turning blue [facility] Serotonin Reuptake Inhibitors (SSRIs) (3 sources) FLUoxetine Drug Allergy 014 Feels weird [facility] Sulfamethoxazole / Trimethoprim (2 sources) Sulfamethoxazole / Trimethoprim Drug Allergy odor [facility] Sulfonamides (antibiotic) (2 sources) Sulfonamides (Antibiotic) Drug Allergy [facility] (20 sources) aspirin; Translations: [aspirin] Drug Allergy 023 [facility] Comment on above: 04/10/2016 - angelo (20 sources) codeine; Translations: [Codeine] Drug Allergy 013 unknown [facility] (20 sources) Penicillins; Translations: [PENICILLINS] Allergy to substance (disorder) 013 Turning blue, Other: See Comments [facility] (20 sources) sulfamethoxazole / trimethoprim; Translations: [Bactrim DS] Drug Allergy odor [facility] (20 sources) Sulfonamides (Antibiotic); Translations: [Sulfa sensitivity] Allergy to substance (disorder) odor [facility] (20 sources) -Other; Translations: [-Other] Allergy to substance (disorder) Barbiturates, and amphetamines [facility] (6 sources) -No Known Food Allergies Allergy to substance (disorder) [facility] (20 sources) -No Environmental Allergies; Translations: [-No Environmental Allergies] Allergy to substance (disorder) [facility] (4 sources) Aspirin; Translations: [aspirin] Drug Allergy 023 Tremor (finding), Other: See Comments [facility] Comment on above: 04/10/2016 - angelo (20 sources) Aluminum aspirin Drug Allergy [place] (20 sources) Barbiturates; Translations: [BARBITURATES] Propensity to adverse reactions to drug Other (See Comments) [place] (20 sources) FLUoxetine; Translations: [fluoxetine] Drug Allergy 014 Feels weird, Unknown [place] (20 sources) FLUoxetine Drug Allergy 014 [place] (20 sources) Ibuprofen; Translations: [IBUPROFEN] Drug Allergy Unknown [place] (20 sources) Meperidine; Translations: [meperidine] Drug Allergy 018 [place] (20 sources) predniSONE Drug Allergy [place] (20 sources) Sulfamethoxazole / Trimethoprim; Translations: [sulfamethoxazole-t rimethoprim] Drug Allergy [place] (20 sources) Sulfonamides (Antibiotic) Propensity to adverse reactions to drug [place] (20 sources) Amphetamines Propensity to adverse reactions to drug [place] (20 sources) Metals Allergy to substance [facility] (16 sources) Aluminum-Containing Compounds Propensity to adverse reactions to drug [place] (1 source) Penicillin; Translations: [penicillin] Drug Allergy Cyanosis (finding) [facility] (1 source) Sulfonamides (Antibiotic); Translations: [sulfa drugs] Drug allergy [facility] (5 sources) Sulfonamides (Antibiotic) Propensity to adverse reactions to drug Intolerance [facility] Work Phone: (7 sources) Amphetamine aspartate / Amphetamine Sulfate / Dextroamphetamine saccharate / Dextroamphetamine Sulfate Drug Allergy pain [employer] [facility] [employer] Other (12 sources) Penicillin G Drug Allergy 024 anaphylaxis [facility] (7 sources) Sulf-10 Drug allergy odor producing [facility] [employer] Other (15 sources) Sulfonamides (Antibiotic); Translations: [SULFA (SULFONAMIDE ANTIBIOTICS)] Allergy to substance nausea; strange odor , nausea; strange odor , odor producing [facility] (7 sources) Barbiturate Drug allergy 023 Unknown [facility] (7 sources) Amphetamine Drug Allergy pain [facility] (2 sources) Aspirin Drug Allergy [facility] (2 sources) Barbiturates Drug allergy (disorder) [facility] (2 sources) FLUoxetine Drug Allergy [facility] (1 source) FLUoxetine Drug Allergy [facility] (1 source) Ibuprofen Drug Allergy [facility] (1 source) Meperidine Drug Allergy [facility] (1 source) predniSONE Drug Allergy [facility] (2 sources) Sulfamethoxazole / Trimethoprim Drug Allergy [facility] (1 source) Sulfonamides (Antibiotic) Drug allergy (disorder) [facility] (8 sources) Sulfamethoxazole; Translations: [sulfamethoxazole] Drug Allergy Unknown Reaction [facility] (10 sources) Trimethoprim; Translations: [trimethoprim] Drug Allergy Unknown Reaction [facility] (2 sources) Barbiturate Drug Allergy [facility] (2 sources) Prednisone Propensity to adverse reactions [facility] (5 sources) traZODone; Translations: [trazodone] Drug Allergy restlessness [facility] (1 source) Amphetamine Drug Allergy [facility] (1 source) Aspirin Drug Allergy [facility] (1 source) Barbiturates Drug allergy (disorder) [facility] (1 source) FLUoxetine Drug Allergy [facility] (1 source) Ibuprofen Drug Allergy [facility] (1 source) Meperidine Drug Allergy [facility] (1 source) Penicillin Drug Allergy [facility] Medications Current Medications Medication Drug Class(es) Dates Sig (Normalized) Sig (Original) acetaminophen 500 mg oral tablet (20 sources) Start: 08-15-2023 take 500 mg by mouth every six hours Acetaminophen Active 500 MG PO Every 6 hours August 15, 2023 12:00am Start: 09-18-2022 End: 11-19-2022 Acetaminophen 500 MG Oral Ta blet 09/18/2022 - 11/19/2022 Provider: Start: 09-13-2022 End: [...] Tablet Extended Release 07/31/2018 - 09/04/2018 Provider: Acetaminophen Ac tive take 1 tablet by emiliano th every six hours as needed for pain acetaminophen (TYLENOL) 325 MG tablet Take 325 mg by mouth every 6 hours as needed for Pain. 0 Active acetaminophen 325 mg / oxyCODONE hydrochloride 5 mg oral tablet (5 sources) Opioid Agonist take 1 tablet by mouth every six hours oxyCODONE-Acetaminophen 5-325 MG 1 tablet as needed Orally every 6 hrs for 7 days Active Acidophilus Probiotic 0.5 MG Oral Tablet (20 sources) Start: 023 Acidophilus Probiotic 0.5 MG Oral Tablet 11/19/2022 [...] Oral Tablet 11/17/2020 Provider: Karla Clark CNP [id number] 200 actuat albuterol 0.09 mg/actuat metered dose [...] Start: 05-22-2017 End: 05-22-2017 VENTOLIN HFA 90MCG/ACTUAT AR SC 05/22/2017 - 05/22/2017 Provider: Start: 05-29-2016 [...] Start: 01-05-2016 End: 01-05-2016 VENTOLIN HFA 90MCG/ACTUAT AR SC 01/05/2016 - 01/05/2016 Provider: Start: 01-05-2016 [...] every 6 hours as needed albuterol HFA (P ROVENTIL HFA, VENTOLIN HFA) 90 mcg/actuation inhaler Inhale 1 Puff as instructed as needed. 0 Active albuterol HFA 90 mcg/act inhaler Inhale 1 puff 0 Active Albuterol Sulfat e HFA Active albuterol sulfat e HFA (PROVENTIL;VENTOLIN;PROAIR) 108 (90 Base) MCG/ACT inhaler 1 puff as needed 0 Active Comment on above: Inhale 1 Puff as ins tructed as needed. amantadine hydrochloride 100 mg oral tablet (20 sources) Influenza A M2 Protein Inhibitor Start: 3 take 100 mg by mouth twice daily Amantadine Hcl Active 100 MG PO Twice daily September 11, 2022 12:00am Start: 06-28-2018 End: 05-02-2020 AMANTADINE HCL 100 [...] oral route once daily prn Dosage Change Comment on above: Take 100 mg by mouth two times a day. amylase [id number] unt / lipase 9000 unt / protease [id number] unt oral capsule (9 sources) take 1 capsule by mouth once daily at mealtime jvjasz-tcfnvukv-jcdd ase (ENZADYNE) 9,000-112,500- 112,500 unit capsule Take 1 capsule by mouth daily with food. 0 Active Digestive Enzyme s (Bevitrol) capsule Take 1 capsule by mouth 0 Active take 1 capsule by mouth two time s weekly Digestive Enzymes (ACIDOLL) CAPS Take by mouth Twice a Week 0 Active Comment on above: Take 1 capsule by mo uth daily with food. B12 Folate 800-800 MCG Oral Capsule (3 sources) Start: 0 B12 Folate 800-800 MCG Oral Capsule 03/16/2020 Provider: Karla Clark CNP benztropine mesylate 0.5 mg oral tablet (20 sources) Anticholinergic, Antihistamine Start: 3 take 0.5 mg by mouth twice daily Benztropine Active 0.5 MG PO Twice daily September 11, 2022 12:00am Start: 07-31-2018 End: 05-06-2020 Benztropine Mesylate 0.5 MG Oral Tablet 03/31/2020 Provider: Start: 06-28-2018 End: 05-02-2020 BENZTROPINE 0.5 MG MISC 06/04 - 05/02/2020 Provider: Start: 06-28-2018 End: 06-28-2018 BENZTROPINE 0.5 MG MISC 06/04 - 06/28/2018 Provider: Start: 06-28-2018 End: 06-28-2018 BENZTROPINE 0.5MG MISC 06/28 - 06/28/2018 Provider: take 1 tablet by emiliano th every twenty-four hours Benztropine Mesylate 0.5 MG 1 tablet at bedtime Orally Once a day Active Comment on above: Take 0.5 mg by mouth two times a day. brompheniramine maleate 0.4 mg/ml / dextromethorphan hydrobromide 2 mg/ml / pseudoephedrine hydrochloride 6 mg/ml oral solution (20 sources) alpha-Adrenergic Agonist, Uncompetitive U-rgoqpi-J-aspartate Receptor Antagonist, Sigma-1 Agonist Start: 09-04-2018 Bromfed [...] 6 hours PRN. 0 Active Calcium 600+D Plus Minerals 600-400 MG-UNIT Oral Tablet (3 sources) Start: 024 Calcium 600+D Plus Minerals 600-400 MG-UNIT Oral Tablet 08/14/2023 Provider: Karla Clark CNP Calcium 600+D3 600-400 MG-UN IT Oral Tablet (3 sources) Start: 020 Calcium 600+D3 600-400 MG-UN IT Oral Tablet 03/16/2020 Provider: Karla Clark CNP calcium carbonate 1250 mg or al tablet (19 sources) Start: 024 take 1 tablet by mouth once daily Calcium Carbonate (Oyster Shell Calcium) 500 mg calcium (1,250 mg) tablet Active 500 MG PO Daily August 15, 2023 12:00am Start: 06-22-2023 End: 07-22-2023 take 1 tablet by mouth in the morning calcium carbonate (Os-Rl) 1250 (500 Ca) MG tablet Take 1,250 mg by mouth in the morning. 0 06/22/2023 07/22/2023 Active Start: 06-28-2018 End: 06-28-2018 CALCIUM CARBONATE 500 mg calcium(1,250 MG) MISC 06/28/2018 - 06/28/2018 Provider: End: 01-11-2016 take 1 tablet by mouth twice daily calcium carbonate 500 mg calcium (1,250 mg) oral tablet,chewable 01/11/2016 chew 1 tablet by oral route 2 times a day calcium carbonate 1250 mg / cholecalciferol 200 unt oral tablet (20 sources) Vitamin D Start: 02-24-2023 OYSTER SHELL CALCIUM-VITAMIN D 500 mg-5 mcg (200 unit) per tablet Start: 11-09-2016 take 1 tablet by emiliano th twice daily Calcium 600 + D(3) 600 mg(1,500mg) -400 unit oral tablet 11/20/2017 take 1 tablet by oral route twice daily calcium citrate 1500 mg / cholecalciferol 200 unt oral tablet (2 sources) Vitamin D calcium citrate-vitamin D (CITRACAL+D) 315-200 MG-UNIT per tablet Carpal Tunnel Wrist Stabilizer Miscellaneous (12 sources) Start: 020 Carpal Tunnel Wrist Stabilizer Miscellaneous 07/23/2019 Provider: Karla Clark COTTON DISPATCHER clindamycin 20 mg/ml vaginal cream (2 sources) [...] (20 sources) Central alpha-2 Adrenergic Agonist Start: 022 take 0.1 mg by mouth once daily Clonidine Hcl Active 0.1 MG PO Daily September 11, 2022 12:00am Start: 02-03-2016 End: 07-28-2021 cloNIDine HCl 0.1 MG OR TABS 02/25/2017 - 05/02/2020 Provider: cloNIDine 0.1 MG /24HR 1 patch to skin Transdermal Active Comment on above: Take 0.1 mg by mouth once daily. 12 hr dextromethorphan hydrobromide 30 mg / guaiFENesin 600 mg extended release oral tablet (20 sources) Uncompetitive R-jtjgvr-L-aspartate Receptor Antagonist, Sigma-1 Agonist Start: 08-15-19 take 1 tablet by mouth every twelve hours Dextromethorphan -Guaifenesin (Mucus Dm) 30-600 mg tablet extended release 12 hr Active 1 TAB PO Every 12 hours August 15, 2023 12:00am Start: 08-15-2023 dextromethorph an-guaifenesin Active PO Every 12 hours August 15, 2023 12:00am Start: 03-26-2023 End: 03-26-2023 Dextromethorphan-Guaifenesin (Mucus Relief Dm) 20-400 mg Tablet Discontinued 30 - 600 TAB TABLET March 26, 2023 12:00am March 26, 2023 1:46am Start: 01-18-2023 End: 03-28-2023 take 1 tablet by mouth [...] 4-6 hours as needed for cough/ congestion Comment on above: Take 1 tablet by emiliano th every 12 hours as needed. diclofenac sodium 0.01 mg/mg topical gel (20 sources) Nonsteroidal Anti-inflammatory Drug Start: 4 apply 2 g topically four times daily Diclofenac Sodium Active 2 GM TOPICAL 4 times daily August 15, 2023 12:00am FreeTextSig: as directed Externally; Note: Source Status: Taking; Provider: Wendi Cat ( ) Start: 03-31-2020 Diclofenac Sod ium 1% Transdermal Gel 03/31/2020 Provider: Start: 03-31-2020 End: 03-20-2022 Diclofenac Sodium 1% Transde rmal Gel 03/31/2020 - 03/20/2022 Provider: Digestive Enzymes (ACIDOLL) CAPS (5 sources) take 1 capsule by mouth two times weekly Digestive Enzymes (ACIDOLL) CAPS Take by mouth Twice a Week 0 Active Digestive Enzymes (ACIDOLL) CAPS (13 sources) take 1 capsule by mouth two times weekly Digestive Enzymes (ACIDOLL) CAPS Take by mouth Twice a Week 0 Active docusate sodium 100 mg oral capsule (20 sources) Start: 03-12-2023 take 100 mg by mouth at bedtime Docusate Sodium Active 100 MG PO Bedtime March 12, 2023 12:00am Start: 08-02-2021 End: 11-19-2022 Colace 100 MG Oral Capsule 0 12/20/2021 - 11/19/2022 Provider: Karla Clark CNP Comment on above: Take 100 mg by mouth once daily. famotidine 20 mg oral tablet (20 sources) Histamine-2 Receptor Antagonist Start: 09-22-2019 End: 11-19-2022 take 20 mg by mouth twice daily Famotidine Active 20 MG PO Twice daily September 11, 2022 12:00am Start: 09-22-2019 End: 11-19-2022 Famotidine 20 MG Oral Tablet 09/14/2020 - 12/20/2021 Provider: Karla Clark CNP Famotidine (PEPC ID PO) Take by mouth OTC Pepcid daily. 0 Active Comment on above: Take 20 mg by mouth two times a day. fluticasone propionate 0.05 mg/actuat metered dose nasal spray (20 sources) Corticosteroid Start: 03-26-2023 fluticasone (Flonase) 50 MCG/ACT nasal spray Twice daily 0 03/26/2023 Active Start: 03-26-2023 take 1 spray(s) nasa l route twice daily Fluticasone Propionate Active 1 SPRAY INTRANASAL Twice daily March 26, 2023 12:00am inhale 1 spray into each nostril twice a day Start: 09-11-2022 End: 10-10-2023 take 1 spray(s) nasal route twice daily [...] each nostril by intranasal route twice daily take 2 spray(s) nasa l route once daily Fluticasone Furoate 27.5 mcg/actuation nasal spray Use 2 Sprays in each nostril once daily. 0 Active fluticasone (Peter amyst) 27.5 MCG/SPRAY nasal spray 2 sprays in the morning. 0 Active take 1 spray(s) nasa l route once daily Fluticasone Propionate 50 MCG/ACT 1 spray in each nostril Nasally Once a day Active Comment on above: Use 2 Sprays in each nostril once daily. Fluticasone Propion-Salmeterol (20 sources) Corticosteroid, beta2-Adrenergic Agonist Start: 08-15-2023 Fluticasone Propion-Salmeterol (Advair Diskus) 250-50 mcg/dose blister with device Active 1 INH INHALATION Twice daily August 15, 2023 12:00am Start: 03-28-2023 take 1 puff(s) by in halation twice daily WIXELA INHUB 250-50 mcg/dose inhaler Inhale 1 Puff as instructed two times a day. 0 03/28/2023 Active Start: 03-28-2023 take 1 puff(s) by in halation in the morning Wixela Inhub 250-50 MCG/ACT [...] 1 puff Inhalation Twice a day Active Comment on above: Inhale 1 Puff as ins tructed two times a day. folic acid 0.8 mg oral tablet (20 sources) Start: 03-26-2023 take 800 ug by mouth once daily Folic Acid Active 800 MCG PO Daily March 26, 2023 12:00am Start: 09-11-2022 End: 03-12-2023 take 800 ug by mouth once daily Folic Acid Discontinued 800 MCG PO Daily September 11, 2022 12:00am March 12, 2023 5:55am Start: 08-11-2020 End: 08-27-2022 Folic Acid 800 MCG Oral Tabl et 07/28/2021 - 08/27/2022 Provider: Karla Clark CNP Start: 06-17-2020 End: 07-28-2021 Folic Acid 0.8 MG Oral Capsu le 06/17/2020 - 07/28/2021 Provider: Comment on above: Take 800 mcg by mout h once daily. hypromellose (9 sources) take 1 drop(s) into the eye(s) four times daily Hypromellose (ARTIFICIAL TEARS OP) Apply 1 drop to eye 4 times daily Each eye. 0 Active Lactobacillus (20 sources) Lactobacillus (ACIDOPHILUS PROBIOTIC PO) Take by mouth 2 times daily 0 Active levothyroxine sodium 0.112 mg oral tablet (12 sources) l-Thyroxine Start: 07-31-2023 Levothyroxine Sodium 112 MCG Oral Tablet 07/31/2023 Provider: Start: 06-22-2023 End: 09-20-2023 Levothyroxine Active 112 MCG PO 629August 15, 2023 12:00am Comment on above: Take 1 tablet by emiliano th daily before breakfast. lithium carbonate 300 mg oral tablet (20 sources) Start: 10-08-2023 [place] Carbonate 300 MG Oral Tablet 10/08/2023 Provider: Start: 08-20-2023 take 300 mg by mouth twice daily [place] Carbonate Active 300 MG PO Twice daily 60 August 20, 2023 12:00am Start: 09-11-2022 take 150 mg by mouth once daily in the morning [place] Carbonate Active 150 MG PO Every morning September 11, 2022 12:00am Start: 09-11-2022 End: 03-12-2023 take 300 mg by mouth once daily at bedtime [place] Carbonate Discontinued 300 MG PO Daily at bedtime September 11, 2022 12:00am March 12, 2023 5:59am Start: 09-11-2022 End: 10-15-2023 take 150 mg by mouth twice daily [place] Carbonate Discontinued 150 MG PO Twice daily September 11, 2022 12:00am August 20, 2023 8:53am Start: 06-28-2018 End: 02-21-2023 [place] Carbonate 300MG Oral Tablet 07/31/2018 - 02/21/2023 Provider: Start: 06-28-2018 End: 05-02-2020 LITHIUM CARBONATE 300 MG MIS C 06/28/2018 - 05/02/2020 Provider: Start: 06-28-2018 End: 05-02-2020 LITHIUM CARBONATE 450 MG MIS C 06/28/2018 - 05/02/2020 Provider: Start: 06-28-2018 End: 05-02-2020 LITHOBID 300 MG MISC - 05/02/2020 Provider: Start: 06-28-2018 End: 06-28-2018 LITHOBID 300 MG MISC - 06/28/2018 Provider: Start: 06-28-2018 End: 06-28-2018 [...] by mouth twice daily in the evening [place] Carbonate ER 300 MG 1 tablet am [...] mg) by oral route at bed time Comment on above: Take 150 mg by mouth two times a day with meals. loratadine 10 mg oral tablet (20 sources) Start: 06-28-2018 End: 11-19-2022 take 10 mg by mouth once daily Loratadine Active 10 MG PO Daily September 11, 2022 12:00am Loratadine (CLAR ITIN PO) Take by mouth daily 0 Active Comment on above: Take 10 mg by mouth once daily. LORazepam 1 mg oral tablet (1 source) Benzodiazepine Start: 01-03-20 take 2 tablets by mouth once daily Ativan 1 mg Tab 2 mg = 2 tab(s), Oral, Daily, tab(s), Refills(s) 0 Start Date: 01/02/11 Status: Ordered mecobalamin (2 sources) Start: 03-16-20 take 800 ug by mouth once daily mecobalamin (B12 ACTIVE ORAL) Take 800 mcg by mouth once daily. 0 03/16/2020 Active Comment on above: Take 800 mcg by mout h once daily. meloxicam 15 mg oral tablet (20 sources) Nonsteroidal Anti-inflammatory Drug Start: 06-18-19 End: 11-20-19 Meloxicam Active 15 MG PO Daily September 11, 2022 12:00am give 1 table by mouth once daily (No other NSAIDS) Comment on above: Take 15 mg by mouth once daily. nystatin [id number] unt/ml topical cream (20 sources) Polyene Antifungal Start: 08-15-19 Nystatin Active 1 APPLIC TOPICAL Twice daily August 15, 2023 12:00am Start: 08-16-2022 End: 03-26-2023 Nystatin Discontinued 1 APPL IC TOPICAL Twice daily March 26, 2023 12:00am March 26, 2023 2:02am Start: 08-16-2022 nystatin (MYCO STATIN) [id number] UNIT/GM cream Indications: Cutaneous candidiasis Apply topically 2 times daily. 30 g 1 08/16/2022 Active Nystatin Active Comment on above: Apply to affected ar ea two times a day. OLANZapine 15 mg oral tablet (20 sources) Atypical Antipsychotic Start: 4 take 15 mg by mouth once daily at bedtime Olanzapine Active 15 MG PO Daily at bedtime August 20, 2023 12:00am Start: 08-15-2023 End: 08-20-2023 take 2 tablets by mouth once daily at bedtime Olanzapine (Zyprexa) 5 mg tablet Discontinued 10 MG PO Daily at bedtime August 15, 2023 12:00am August 20, 2023 8:53am Start: 03-28-2023 End: 10-15-2023 take 1 tablet by mouth once daily Olanzapine (Zyprexa) 5 mg tablet Active 5 MG PO Daily August 15, 2023 12:00am Start: 03-28-2023 End: 12-16-2023 take 5 mg by mouth every twelve hours Olanzapine Discontinued 5 MG PO Every 12 hours March 28, 2023 12:00am December 16, 2023 4:41pm Comment on above: Take 5 mg by mouth e very 12 hours as needed. OXcarbazepine 300 mg oral tablet (1 source) Anti-epileptic Agent Start: 01-02-2011 take 1 tablet by mouth three times daily Trileptal 300 mg Tab 300 mg = 1 tab(s), Oral, TID, tab(s), Refills(s) 0 Start Date: 01/02/11 Status: Ordered oxyCODONE hydrochloride 5 mg oral tablet (13 sources) Opioid Agonist Start: 06-23-2023 oxyCODONE (Roxicodone) 5 MG immediate release tablet Start: 09-13-2022 End: 03-12-2023 take 5 mg by mouth every four to six hours Oxycodone Discontinued 5 MG PO EVERY 4-6 HOURS 30 12September 13, 2022 March 12, 2023 5:55am primidone 50 mg oral tablet (1 source) [...] oral tablet (20 sources) Atypical Antipsychotic Start: 12-24-2023 take 12.5 mg by mouth three times daily Quetiapine Active 12.5 MG PO TID@0900,1300,1700 0 December 24, 2023 12:00am Start: 04-02-2023 take 400 mg by mouth at bedtim e Quetiapine Active 400 MG PO Bedtime August 16, 2023 12:00am Start: 03-28-2023 QUEtiapine Fum arate 25 MG Oral Tablet 04/09/2023 Provider: Start: 03-28-2023 End: 12-24-2023 take 12.5 mg by mouth twice daily Quetiapine Discontinued 12.5 MG PO Twice daily August 15, 2023 12:00am December 24, 2023 1:20pm Start: 09-11-2022 End: 03-15-2023 take 300 mg by mouth once daily at bedtime Quetiapine Discontinued 300 MG PO Daily at bedtime September 11, 2022 12:00am March 15, 2023 10:16am Start: 09-11-2022 End: 08-20-2023 take 400 mg by mouth once daily at bedtime Quetiapine Discontinued 400 MG PO Daily at bedtime March 15, 2023 6:46am August 20, 2023 8:53am Start: 12-14-2021 End: 02-28-2023 QUEtiapine Fumarate 300 [...] Provider: Start: 06-28-2018 End: 06-28-2018 [facility] - 06/28/2018 Provider: Start: 06-28-2018 End: 06-28-2018 QUETIAPINE 150MG MISC 2018 - 06/28/2018 Provider: Start: 08-24-2012 End: 05-02-2020 SEROquel XR 200 MG OR TB24 06/28/2018 - 05/02/2020 Provider: Conversion Provider take 0.5 tablet by m outh twice daily QUEtiapine (SEROQUEL) 25 mg tablet Take 25 mg by mouth two times a day. Take 1/2 tablet twice daily 0 Active QUEtiapine (SERO QUEL XR) 400 MG extended release tablet Take 600 mg by mouth nightly 0 Active take 1 tablet by emiliano twice daily quetiapine 50 mg oral tablet take 1 tablet (50 mg) by oral route 2 times per day End: 07-30-2017 take 1 tablet by mouth once daily quetiapine 50 mg oral tablet 07/30/2017 take 1 tablet (50 mg) by oral route 1 times per day D/C By Sprout take 1 tablet by emiliano th once daily at bedtime quetiapine 300 mg oral tablet extended release 24 hr take 1 tablet (300 mg) by oral route once daily at bedtime End: 06-12-2016 take 2 tablets by mouth once daily at bedtime Seroquel XR 50 mg oral tablet extended release 24 hr 06/12/2016 take 2 tablets (100 mg) by oral route [facility] End: 03-05-2017 take 1 tablet by mouth [...] without food or with a light meal Comment on above: Take 400 mg by mouth daily at bedtime. Take 25 mg by mouth two times a day. Take 1/2 tablet twice daily risperiDONE 37.5 mg injection (20 sources) Atypical Antipsychotic Start: 09-13-2023 RisperDAL Consta 37.5 MG Intramuscular Suspension Reconstituted ER 09/13/2023 Provider: Start: 12-14-2021 End: 10-15-2023 RisperDAL Consta 25 MG Intramuscular Suspension Reconstituted ER 12/14/2021 - 10/15/2023 Provider: Start: 06-17-2020 End: 05-08-2021 RisperDAL Consta 25 [...] deep gluteal injection repeat every 2 weeks Comment on above: Inject 25 mg intramu scularly every 2 weeks. Risperidone Microspheres (Risperdal Consta) 37.5 mg/2 mL suspension,extended rel recon (4 sources) Start: inject 37.5 mg by intramuscular injection every other week Risperidone Microspheres (Risperdal Consta) 37.5 mg/2 mL suspension,extende d rel recon Active 37.5 MG IM EVERY 2 WEEKS August 15, 2023 12:00am topiramate 25 mg oral tablet (20 sources) Start: End: take 3 tablets by mouth once daily [...] 02/12/2019 Active Start: 11-06-2018 End: 02-28-2023 take 25 mg by mouth once daily at bedtime Topiramate Active 25 MG PO Daily at bedtime September 11, 2022 12:00am Comment on above: Take 25 mg by mouth once daily. Vitamin B-12 500 MCG Oral Tablet (1 source) Start: 09-24-2023 Vitamin B-12 500 MCG Oral Tablet 09/24/2023 Provider: vitamin B12 (20 sources) Vitamin B12 Start: 03-26-2023 take 1 tablet by mouth once daily Cyanocobalamin (Vitamin B-12) (Vitamin B-12) 500 mcg Tablet Active 500 MCG PO Daily March 26, 2023 12:00am Start: 03-26-2023 cyanocobalamin (Vitamin B-12) 500 MCG tablet Daily 0 03/26/2023 Active Start: 09-11-2022 End: 03-12-2023 take 1 tablet by mouth once daily Cyanocobalamin (Vitamin B-12) (Vitamin B-12) 500 mcg Tablet Discontinued 500 MCG PO Daily September 11, 2022 12:00am March 12, 2023 5:55am Vitamin B12 Acti ve Completed/Discontinued Medications Medication Drug Class(es) Dates Sig (Normalized) Sig (Original) acetaminophen 325 mg / HYDROcodone bitartrate 5 mg oral tablet (20 sources) Opioid Agonist Start: 03-26-2023 End: 03-28-2023 take 0.5 tablet by mouth every six hours Hydrocodone-Acetami nophen Discontinued 0.5 TAB PO Q6H March 26, 2023 12:00am March 28, 2023 12:01pm Start: 09-11-2022 End: 09-14-2022 take 1 tablet by mouth every six hours Hydrocodone-Acetaminophen Discontinued 1 TAB PO Q6H September 11, 2022 12:00am September 14, 2022 11:15am Start: 09-06-2022 End: 05-22-2023 HYDROcodone-Acetaminophen 5- 325 MG Oral Tablet 11/19/2022 - 05/22/2023 Provider: Karla Clark CNP Start: 08-24-2012 Vicodin 500 mg -5 mg [...] 11/06/2018 Provider: Artificial Tears 0.1-0.3% Ophthalmic Solution (17 sources) Start: 11-06-2018 End: 03-31-2020 Artificial Tears [...] days B12 Folate 800-800 MCG Oral Capsule (17 sources) Start: 03-16-2020 End: 08-11-2020 B12 Folate 800-800 MCG Oral Capsule 03/16/2020 - 08/11/2020 Provider: Karla Clark CNP benzonatate 200 mg oral capsule (20 sources) Non-narcotic Antitussive Start: 02-28-2023 End: 05-22-2023 Benzonatate 200 MG Oral Capsule 02/28/2023 - 05/22/2023 Provider: Aaron Whitaker CNP Start: 11-03-2021 End: 05-22-2023 take 100 mg by mouth once daily Benzonatate Discontinued 100 MG PO Daily September 13, 2022 12:00am March 28, 2023 12:01pm Start: 11-19-2019 End: 05-06-2020 Tessalon Perles 100 MG Oral Capsule 11/19/2019 - 05/06/2020 Provider: Karla Clark CNP Start: 03-05-2019 End: 04-15-2019 Tessalon Perles 100 MG Oral Capsule 03/05/2019 - 04/15/2019 Provider: Karla Clark CNP Comment on above: Take 100 mg by mouth once daily. Blood Pressure Cuff (6 sources) Start: 09-22-2015 Blood Pressure Cuff miscellaneous misc 09/22/2015 use as directed (dx HTN I10) BLOOD PRESSURE CUFF MISC (18 sources) Start: 09-22-2015 End: 07-23-2019 BLOOD PRESSURE CUFF MISC 09/22/2015 - 07/23/2019 Provider: Start: 09-22-2015 End: 09-22-2015 BLOOD PRESSURE CUFF MISC - 09/22/2015 Provider: BLOOD PRESSURE CUFF MISC (19 sources) Start: 09-22-2015 End: 07-23-2019 BLOOD PRESSURE [...] End: 04-17-2018 BROMFED DM 2-30-10 MG/5 ML [facility] 04/17/2018 - 04/17/2018 Provider: Start: 04-17-2018 End: 04-17-2018 BROMFED DM 2-30-10MG/5 ML [facility] 04/17/2018 - 04/17/2018 Provider: Start: 07-30-2017 End: 05-02-2020 BROMFED DM 2-30-10 MG/5 ML [facility] [place] 07/30/2017 - 05/02/2020 Provider: Start: 07-30-2017 End: 07-30-2017 BROMFED DM 2-30-10 MG/5 ML [facility] [place] 07/30/2017 - 07/30/2017 Provider: Start: 07-30-2017 End: 07-30-2017 BROMFED DM 2-30-10MG/5 ML [facility] 07/30/2017 - 07/30/2017 Provider: Start: 05-17-2017 End: 05-02-2020 BROMFED DM 2-30-10 MG/5 ML [facility] [place] 05/17/2017 - 05/02/2020 Provider: Start: 05-17-2017 End: 05-17-2017 BROMFED DM 2-30-10 MG/5 ML [facility] [place] 05/17/2017 - 05/17/2017 Provider: Start: 05-17-2017 End: 05-17-2017 BROMFED DM 2-30-10MG/5 ML [facility] 05/17/2017 - 05/17/2017 Provider: Start: 05-22-2016 End: 07-23-2019 BROMFED DM 2-30-10 MG/5 ML [facility] [place] 05/22/2016 - 07/23/2019 Provider: Start: 05-22-2016 End: 05-22-2016 BROMFED DM 2-30-10 MG/5 ML [facility] [place] 05/22/2016 - 05/22/2016 Provider: Start: 05-22-2016 End: 05-22-2016 BROMFED DM 2-30-10MG/5 ML [facility] 05/22/2016 - 05/22/2016 Provider: Start: 12-09-2015 End: 07-23-2019 BROMFED DM 2-30-10 MG/5 ML [facility] [place] 12/09/2015 - 07/23/2019 Provider: Start: 12-09-2015 End: 12-09-2015 BROMFED DM 2-30-10 MG/5 ML [facility] 12/09/2015 - 12/09/2015 Provider: Start: 12-09-2015 End: 12-09-2015 BROMFED DM 2-30-10MG/5 ML [facility] 12/09/2015 - 12/09/2015 Provider: Symbicort 160-4.5 mcg/actuation [...] Calcium Start: 11-26-2018 End: 03-16-2020 Calcium 600+D3 [id number] Oral Tablet 11/26/2018 - 03/16/2020 Provider: Karla Clark CNP Start: 11-26-2018 End: 11-21-2019 Calcium 600+D3 [id number] T Oral Tablet 11/26/2018 - 11/21/2019 Provider: Karla Clark CNP Start: 07-31-2018 Calcium 600+D3 [id number] Oral Tablet 07/31/2018 Provider: Start: 08-24-2012 take 2 tablets by mo [facility] once daily Calcium 600 D Tab 2 tab(s), Oral, Daily, Refill(s) 0 Start Date: 08/24/12 Status: Ordered CALCIUM 600 + D(3) 600 mg(1,500mg) -400 UNIT MISC (20 sources) Start: 06-28-2018 End: 06-28-2018 CALCIUM 600 + D(3) 600 mg(1,500mg) -400 UNIT [facility] [place] 06/28/2018 - 06/28/2018 Provider: Start: 11-20-2017 End: 11-20-2017 CALCIUM 600 + D(3) 600 mg(1, 500mg) -400 UNIT [facility] [place] 11/20/2017 - 11/20/2017 Provider: Start: 11-09-2016 End: 11-09-2016 CALCIUM 600 + D(3) 600 mg(1, 500mg) -400 UNIT [facility] [place] 11/09/2016 - 11/09/2016 Provider: CALCIUM 600 + D(3) 600 mg(1,500mg) -400 [facility] ([facility] sources[facility] Start: 06-28-2018 End: 05-02-2020 CALCIUM 600 + D(3) 600 mg(1,500mg) -400 UNIT [facility] [place] 06/28/2018 - 05/02/2020 Provider: Start: 11-20-2017 End: 05-02-2020 CALCIUM 600 + D(3) 600 mg(1, 500mg) -400 UNIT [facility] [place] 11/20/2017 - 05/02/2020 Provider: Start: 11-09-2016 End: 05-02-2020 CALCIUM 600 + D(3) 600 mg(1, 500mg) -400 UNIT [facility] [place] 11/09/2016 - 05/02/2020 Provider: CALCIUM 600 + D(3) 600 mg(1,500mg)-400 UNIT MISC (3 sources) Start: 06-28-2018 End: 06-28-2018 CALCIUM 600 + D(3) 600 mg(1,500mg)-400 UNIT [facility] [place] 06/28/2018 - 06/28/2018 Provider: Start: 11-20-2017 End: 11-20-2017 CALCIUM 600 + D(3) 600 mg(1, 500mg)-400 UNIT [facility] [place] 11/20/2017 - 11/20/2017 Provider: Start: 11-09-2016 End: 11-09-2016 CALCIUM 600 + D(3) 600 mg(1, 500mg)-400 UNIT [facility] [place] 11/09/2016 - 11/09/2016 Provider: CALCIUM 600 + D(3) 600 mg(1,500mg)-400 UNIT MISC (6 sources) Start: 06-28-2018 End: 06-28-2018 CALCIUM 600 + D(3) 600 mg(1,500mg)-400 UNIT [facility] [place] 06/28/2018 - 06/28/2018 Provider: Start: 11-20-2017 End: 11-20-2017 CALCIUM 600 + D(3) 600 mg(1, 500mg)-400 UNIT [facility] [place] 11/20/2017 - 11/20/2017 Provider: Start: 11-09-2016 End: 11-09-2016 CALCIUM 600 + D(3) 600 mg(1, 500mg)-400 UNIT [facility] [place] 11/09/2016 - 11/09/2016 Provider: Calcium 600+D 600-400 MG-UNI T Oral Tablet (20 sources) Start: 12-20-2021 End: 08-14-2023 Calcium 600+D 600-400 MG-UNI T Oral Tablet 12/20/2021 - 08/14/2023 Provider: Karla Clark CNP Start: 12-20-2021 Calcium 600+D 600-400 MG-UNIT Oral Tablet 12/20/2021 Provider: Karla Clark CNP Start: 02-24-2021 End: 12-20-2021 Calcium 600+D 600-400 MG-UNI T Oral Tablet 02/24/2021 - 12/20/2021 Provider: Karla Clark CNP Start: 02-24-2021 Calcium 600+D 600-400 MG-UNIT Oral Tablet 02/24/2021 Provider: Karla Clark CNP Calcium 600+D High Potency 600-400 MG-UNIT Oral Tablet (16 sources) Start: 03-12-2019 End: 04-15-2019 Calcium 600+D High Potency 600-400 MG-UNIT Oral Tablet 03/12/2019 - 04/15/2019 Provider: Karla Clark CNP Calcium 600+D High Potency 600-400 MG-UNIT Oral Tablet (17 sources) Start: 03-12-2019 End: 04-15-2019 Calcium 600+D High Potency 600-400 MG-UNIT Oral Tablet 03/12/2019 - 04/15/2019 Provider: Karla Clark CNP Calcium 600+D3 600-400 MG-UN IT Oral Tablet (17 sources) Start: 03-16-2020 End: 02-24-2021 Calcium 600+D3 600-400 MG-UN IT Oral Tablet 03/16/2020 - 02/24/2021 Provider: Karla Clark CNP CALCIUM CARBONATE 500 mg calcium (1,250 MG) MISC (17 sources) Start: 06-28-2018 End: 06-28-2018 CALCIUM CARBONATE 500 mg rl cium (1,250 MG) MISC 06/28/2018 - 06/28/2018 Provider: CALCIUM CARBONATE 500 mg calcium (1,250 MG) MISC (17 sources) Start: 06-28-2018 End: 05-02-2020 CALCIUM CARBONATE 500 mg rl cium (1,250 MG) MISC 06/28/2018 - 05/02/2020 Provider: Calcium Carbonate-Vitamin D2 (Oyster Shell Calcium-Vit D2) 500 mg(1,250mg) -200 unit Tablet (6 sources) Start: 03-26-2023 End: 03-26-2023 Calcium Carbonate-Vitamin D2 [...] Provider: Carpal Tunnel Wrist Stabiliz er Miscellaneous (17 sources) Start: 07-23-2019 End: 07-28-2021 Carpal Tunnel [...] oral tablet (20 sources) Quinolone Antimicrobial Start: 08-15-2023 End: 12-16-2023 Ciprofloxacin Hcl Discontinued 500 MG PO Twice daily August 15, 2023 12:00am December 16, 2023 4:28pm 10 days no doses given yet Start: 10-25-2015 End: 05-02-2020 Cipro 500 MG OR TABS - 07/23/2019 Provider: Start: 10-25-2015 End: 05-02-2020 Cipro 500 MG OR TABS - 07/23/2019 Provider: CLEARLAX 17 GRAM/DOSE MISC [...] cough / cold CORDICIDIN COUGH AND COLD AR SC (20 sources) Start: 08-21-2016 End: 08-21-2016 CORDICIDIN COUGH AND COLD AR SC 08/21/2016 - 08/21/2016 Provider: Start: 06-26-2016 End: 06-26-2016 CORDICIDIN COUGH AND COLD AR SC 06/26/2016 - 06/26/2016 Provider: Start: 04-10-2016 End: 07-23-2019 CORDICIDIN COUGH AND COLD AR SC 04/10/2016 - 07/23/2019 Provider: Start: 04-10-2016 End: 04-10-2016 CORDICIDIN COUGH AND COLD AR SC 04/10/2016 - 04/10/2016 Provider: CORDICIDIN COUGH AND COLD AR SC (20 sources) Start: 08-21-2016 End: 05-02-2020 CORDICIDIN COUGH AND COLD AR SC 08/21/2016 - 05/02/2020 Provider: Start: 08-21-2016 End: 08-21-2016 CORDICIDIN COUGH AND COLD AR SC 08/21/2016 - 08/21/2016 Provider: Start: 06-26-2016 End: 05-02-2020 CORDICIDIN COUGH AND COLD AR SC 06/26/2016 - 05/02/2020 Provider: Start: 06-26-2016 End: 06-26-2016 CORDICIDIN COUGH AND COLD AR SC 06/26/2016 - 06/26/2016 Provider: Start: 04-10-2016 End: 07-23-2019 CORDICIDIN COUGH AND COLD AR SC 04/10/2016 - 07/23/2019 Provider: Start: 04-10-2016 End: 04-10-2016 CORDICIDIN COUGH AND COLD AR SC 04/10/2016 - 04/10/2016 Provider: doxycycline hyclate 100 mg oral capsule [...] Provider: ERYTHROMYCIN 5 mg/gram (0.5 %) MISC (17 sources) Start: 06-28-2018 End: 05-02-2020 ERYTHROMYCIN 5 [...] sources) Corticosteroid, beta2-Adrenergic Agonist Start: 07-31-2018 End: 05-22-2023 Dulera 200-5MCG/ACT Inhalation Aerosol 10/23/2018 - 10/31/2019 [...] INDOMETHACIN 50MG MISC 06/28 - 06/28/2018 Provider: Lactobacillus acidophilus (20 sources) Start: 08-15-2023 End: 12-16-2023 take 1 capsule by mouth once daily Lactobacillus Acidophilus (Acidophilus) capsule Discontinued 1 CAP PO Daily August 15, 2023 12:00am December 16, 2023 4:36pm Start: 08-15-2023 take 1 capsule by mo uth once daily Lactobacillus Acidophilus (Acidophilus) capsule Active 1 CAP PO Daily August 15, 2023 12:00am Start: 03-26-2023 End: 08-15-2023 take 1 capsule by mouth once daily Lactobacillus Acidophilus (Acidophilus) Capsule Discontinued 1 CAP PO Daily March 26, 2023 12:00am August 15, 2023 5:22pm Start: 03-26-2023 End: 08-15-2023 take 1 capsule by mouth once daily Lactobacillus Acidophilus (Acidophilus) Capsule Discontinued 1 CAP PO Daily March 26, 2023 12:00am August 15, 2023 5:22pm Start: 03-26-2023 take 1 capsule by mo uth once daily Lactobacillus Acidophilus (Acidophilus) Capsule Active [...] 07-31-2018 Acidophilus Or al Capsule 07/31/2018 Provider: lactobacillus acidophilus [id number] unt / pectin 10 mg oral capsule (18 sources) Start: 03-26-2023 End: 03-26-2023 take 1 capsule by mouth once daily Acidophilus-Pectin, [place] (Acidophilus Probiotic) 100 million cell-10 mg Capsule Discontinued 1 CAP PO Daily March 26, 2023 12:00am March 26, 2023 1:21am Start: 02-21-2017 take 1 capsule by mo ut twice daily Acidophilus Probiotic 100 million cell-10 mg oral capsule 02/21/2017 take 1 capsule by oral route twice daily acidophilus-pect in, citrus 100 million cell-10 mg cap Take by mouth. 0 Active Comment on above: Take by mouth. 10 ml lidocaine hydrochloride 10 mg/ml injection (1 source) Antiarrhythmic, Amide Local Anesthetic Start: 06-08-2020 End: 06-08-2020 lidocaine PF 1 % injection Medicated Chest Rub (7 sources) Start: 05-17-2017 Medicated Chest Rub topical ointment 05/17/2017 apply to affected area every 3-4 hours as needed for cough/congestion Start: 05-17-2017 Medicated Ches t Rub topical ointment 05/17/2017 apply to affected area every 3-4 hours as needed for cough/congestion MEDICATED CHEST RUB MISC (18 sources) Start: 05-17-2017 End: 05-17-2017 MEDICATED CHEST RUB MISC - 05/17/2017 Provider: MEDICATED CHEST RUB MISC (19 sources) Start: 05-17-2017 End: 05-02-2020 MEDICATED CHEST [...] - 06/28/2018 Provider: MIRALAX 17 gram/dose MISC (19 sources) Start: 06-28-2018 End: 05-02-2020 MIRALAX 17 gram/dose MISC - 05/02/2020 Provider: Start: 06-28-2018 End: 06-28-2018 MIRALAX 17 gram/dose MISC - 06/28/2018 Provider: Mometasone-Formoterol (Dulera) 200-5 mcg/actuation Hfa Aerosol Inhaler (18 sources) Start: 03-26-2023 End: 03-28-2023 take 1 [...] Start: 06-28-2018 End: 05-02-2020 NARATRIPTAN 2.5 MG [facility] [place] 06/28/2018 - 05/02/2020 Provider: Start: 06-28-2018 End: 06-28-2018 NARATRIPTAN 2.5 MG [facility] [place] 06/04 - 06/28/2018 Provider: Start: 06-28-2018 End: 06-28-2018 NARATRIPTAN 2.5MG [facility] [place] 06/28 - 06/28/2018 Provider: End: 05-14-2017 naratriptan [...] 06-28-2018 End: 05-02-2020 NICOTINE 14 MG/24 HR MIS 06/28/2018 - 05/02/2020 Provider: Start: 06-28-2018 End: [...] mg) by transdermal route once daily prn nitrofurantoin, macrocrystals 25 mg / nitrofurantoin, monohydrate 75 mg oral capsule (20 sources) Nitrofuran Antibacterial Start: 03-27-2023 End: 05-22-2023 Macrobid 100 MG Oral Capsule 03/27/2023 - 05/22/2023 Provider: Karla Clark CNP Start: 08-31-2019 End: 09-22-2019 Macrobid 100 MG Oral Capsule 08/31/2019 - 09/22/2019 Provider: Karla Clark CNP Omeprazole (20 sources) Proton Pump Inhibitor Start: 06-22-2017 End: 05-02-2020 PRILOSEC 40 MG MISC 06/22/2017 - 05/02/2020 Provider: Start: 06-22-2017 End: 06-22-2017 PRILOSEC 40 MG MISC 06/22/19 - 06/22/2017 Provider: Start: 06-22-2017 End: 06-22-2017 PRILOSEC 40MG MISC - 06/22/2017 Provider: Start: 06-11-2016 End: 07-23-2019 PRILOSEC 40 MG MISC 06/11/19 - 07/23/2019 Provider: Start: 06-11-2016 End: 06-11-2016 PRILOSEC 40 MG MISC 06/11/19 - 06/11/2016 Provider: Start: 06-11-2016 End: 06-11-2016 PRILOSEC 40MG MISC - 06/11/2016 Provider: Start: 06-08-2014 End: 05-02-2020 Omeprazole 40 MG OR CPDR - 05/02/2020 Provider: phenazopyridine hydrochlorid e 200 mg oral tablet (20 sources) Start: 12-08-2015 End: 07-23-2019 Pyridium 200 MG OR TABS 12/08/2015 - 07/23/2019 Provider: Start: 10-25-2015 End: 07-23-2019 Pyridium 100 MG OR TABS 10/02 - 07/23/2019 Provider: polyethylene glycol 3350 52772 mg powder for oral solution (20 sources) Osmotic Laxative Start: 11-11-2019 End: 05-22-2023 take 17 g by mouth once daily at bedtime Polyethylene Glycol 3350 Discontinued 17 GM PO Daily at bedtime September 11, 2022 12:00am March 12, 2023 5:56am Start: 07-16-2017 End: 07-16-2017 CLEARLAX 17GRAM/DOSE MISC - 07/16/2017 Provider: Start: 07-16-2017 End: 11-06-2019 ClearLax Oral Powder - 09/04/2018 Provider: Start: 06-11-2016 End: 06-11-2016 CLEARLAX 17GRAM/DOSE MISC - 06/11/2016 Provider: Polyethylene Glycols (20 sources) Start: 11-11-2019 End: 11-15-2020 Polyethylene Glycol 3350 Pow mateo 11/11/2019 - 11/15/2020 Provider: Karla Clark CNP Start: 11-11-2019 Polyethylene G lycol 3350 Powder 11/11/2019 Provider: Karla Clark CNP Start: 06-05-2019 Polyethylene G lycol 3350 Powder 06/05/2019 Provider: Polyethylene Gly col - as directed Active predniSONE 20 mg oral tablet (20 sources) Start: 06-11-2023 End: 07-31-2023 predniSONE 20 MG Oral Tablet 06/11/2023 - 07/31/2023 Provider: Karla Clark CNP Start: 11-19-2022 End: 02-28-2023 predniSONE 20 MG [...] Start: 08-24-2012 take 3 tablets by mo uth once daily predniSONE 20 mg Tab 3 [...] Start: 05-08-2018 take 1 capsule by mo ut once daily propranolol 60 mg oral capsule,extended [...] Start: 04-23-2018 End: 05-02-2020 PROPRANOLOL 20 MG MISC 04/23 - 05/02/2020 Provider: Start: 04-23-2018 End: [...] Start: 05-14-2017 take 1 tablet by emiliano twice daily propranolol 20 mg oral tablet 05/14/2017 take 1 tablet (20 mg) by oral route twice daily Start: 02-28-2016 End: 07-23-2019 PROPRANOLOL 80 MG MISC 02/27 - 07/23/2019 Provider: Start: 02-28-2016 End: 02-28-2016 PROPRANOLOL 80 MG MISC 02/27 - 02/28/2016 Provider: Start: 02-28-2016 End: 02-28-2016 PROPRANOLOL 80MG MIS 2015 - 02/28/2016 Provider: Start: 02-21-2016 End: 07-23-2019 PROPRANOLOL 80 MG MIS 02/20 - 07/23/2019 Provider: Start: 02-21-2016 End: 02-21-2016 PROPRANOLOL 80 MG MIS 02/20 - 02/21/2016 Provider: Start: 02-21-2016 End: [...] Start: 09-22-2015 End: 09-22-2015 PROPRANOLOL 80 MG MISC 09/21 - 09/22/2015 Provider: Start: 09-22-2015 End: [...] Provider: RISPERDAL CONSTA 37.5 MG/2 ML MISC (17 sources) Start: 06-28-2018 End: 05-02-2020 RISPERDAL CONSTA 37.5 MG/2 ML MISC 06/28/2018 - 05/02/2020 Provider: RISPERDAL CONSTA 37.5MG/2 ML MISC (1 source) Start: 06-28-2018 End: 06-28-2018 RISPERDAL CONSTA 37.5MG/2 ML MISC 06/28/2018 - 06/28/2018 Provider: RISPERDAL CONSTA 37.5MG/2 ML MISC (2 sources) Start: 06-28-2018 End: 06-28-2018 RISPERDAL CONSTA 37.5MG/2 ML MISC 06/28/2018 - 06/28/2018 Provider: Risperidone Microspheres (Risperdal Consta) 25 mg/2 mL suspension,extende d rel recon (5 sources) Start: 09-11-2022 End: 08-15-2023 inject 25 mg by intramuscular injection every other week Risperidone Microspheres (Risperdal Consta) 25 mg/2 mL suspension,extend ed rel recon Discontinued 25 MG IM EVERY 2 WEEKS September 11, 2022 12:00am August 15, 2023 9:20pm Start: 09-11-2022 inject 25 mg by intr amuscular injection every other week Risperidone Microspheres (Risperdal Consta) 25 mg/2 mL suspension,extended rel recon Active 25 MG IM EVERY 2 WEEKS September 11, 2022 12:00am shower chair (8 sources) Start: 08-01-2016 shower [...] Provider: Karla Clark CNP Spacer/Aero-Holding Chambers Device (17 sources) Start: 04-23-2019 End: 05-23-2019 Spacer/Aero-Holding Chambers [...] - 06/12/2016 Provider: SYMBICORT 160-4.5 MCG/ACTUAT MISC (17 sources) Start: 06-12-2016 End: 07-23-2019 SYMBICORT 160-4.5 MCG/ACTUAT MISC 06/12/2016 - 07/23/2019 Provider: traMADol (20 sources) Opioid Agonist Start: 06-28-2018 End: 05-02-2020 TRAMADOL 50 mg MISC 06/28/2018 - 05/02/2020 Provider: Start: 06-28-2018 End: 06-28-2018 TRAMADOL 50 mg MISC 06/28/19 19 - 06/28/2018 Provider: take 1 tablet by emiliano th twice daily as needed tramadol 50 mg [...] 10-100MG/5 ML MISC 09/22/2015 - 09/22/2015 Provider: TUSSIN DM 10-100MG/5 ML MISC (2 sources) Start: [...] [Respiratory system agent (substance)] Onset: 03-31-2019 Chronic kidney disease (2 sources) Chronic kidney disease stage 2; Translations: [Chronic kidney disease, stage 2 (mild)] Onset: 06-21-2023 06-21-2023 Chronic Chronic obstructive pulmonary disease and bronchiectasis (20 [...] INITIAL ENCOUNTER] Onset: 09-17-2022 Episodic Esophageal disorders (3 sources) Gastro-esophageal reflux disease without esophagitis; Translations: [Gastroesophageal reflux disease] Onset: 05-30-2023 06-18-2023 Chronic Essential hypertension (19 sources) Unspecified essential hypertension; Translations: [Hypertensive disorder] Onset: 09-22-2015 03-13-2023 Chronic Fracture of upper limb (17 sources) Other displaced fracture of upper end of right humerus, initial encounter for closed fracture; Translations: [Fracture of upper end of humerus] Onset: 09-17-2022 Episodic Headache, including migraine (20 sources) Migraine, unspecified, without mention of intractable migraine without mention of status migrainosus; Translations: [Migraine] Onset: 09-08-2015 07-09-2016 Chronic Immunizations and screening for infectious disease (20 sources) Screening examination for pulmonary tuberculosis; Translations: [Need for prophylactic vaccination and inoculation against influenza] Onset: 03-06-2016 Episodic Mood disorders (20 sources) Bipolar disorder; Translations: [Depressive disorder] Onset: 05-04-2014 05-04-2014 Chronic Mood disorders (1 source) Major depressive disorder, single episode, unspecified; Translations: [Major depressive disorder, single episode, unspecified] Onset: 07-01-2018 Nonmalignant breast conditions (1 source) Mammary duct ectasia; 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, 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 Nonmalignant breast conditions (2 sources) Lesion of breast; Translations: [Breast lump] Episodic Other aftercare (1 source) Other terminal worker (current) drug therapy; Translations: [OTH CORRECTION CURRENT DRUG THERAPY] Onset: 09-17-2022 Episodic Other [...] Chronic Other nervous system disorders (1 source) Staggering gait; Translations: [Abnormality of gait] Onset: 11-15-2023 Episodic Other non-traumatic joint disorders (1 source) Pain in right shoulder Episodic Other non-traumatic joint disorders (2 sources) Pain in right knee; Translations: [Right knee pain] 10-31-2023 Episodic Other nutritional; endocrine; and metabolic disorders [...] Onset: 05-04-2014 05-04-2014 Chronic Residual codes; unclassified (18 sources) Tobacco use; Translations: [Tobacco user] Onset: 07-01-2018 06-03-2018 Episodic Residual codes; unclassified (1 source) Past history of procedure; Translations: [Other specified postprocedural states] Episodic Residual codes; unclassified (3 sources) Other specified postprocedural states Episodic Schizophrenia and other psychotic disorders (20 sources) Schizoaffective disorder; Translations: [Schizoaffective Disorder] Onset: 03-31-2019 Chronic Schizophrenia and other psychotic disorders (10 sources) Brief psychotic disorder; Translations: [Acute psychosis] Onset: 12-16-2023 08-15-2023 Episodic Sprains and strains (3 sources) Strain of muscle(s) and tendon(s) of the rotator cuff of right shoulder, subsequent encounter Episodic Substance-related disorders (20 sources) Tobacco dependence syndrome; Translations: [Tobacco use disorder] Onset: 01-11-2016 Chronic Thyroid disorders (15 sources) Non-toxic multinodular goiter; Translations: [Nontoxic multinodular goiter] Onset: 05-30-2023 06-21-2023 Chronic Unclassified (6 sources) Body Mass Index 30.0-30.9, adult Onset: 12-19-2017 Chronic Unclassified (7 sources) Parkinson's disease; Translations: [Parkinson's disease] 03-13-2023 [...] unspecified; Translations: [Schizoaffective disorder, unspecified] Onset: 03-26-2023 Past or Other Problems Problem Classification Problem Date Documented Da te Episodic/Chronic Abdominal pain (20 sources) Flank pain; Translations: [Unspecified abdominal pain] Onset: 3 03-13-2023 Episodic Acute and unspecified renal failure (12 sources) Acute renal failure syndrome; Translations: [Acute kidney failure, unspecified] Onset: 3 03-26-2023 Episodic Acute bronchitis (12 sources) Acute bronchitis; Translations: [Acute bronchitis, unspecified] Onset: 3 Resolved: 4 11-19-2022 Episodic Chronic obstructive pulmonary disease and bronchiectasis (20 sources) Chronic obstructive pulmonary disease and bronchiectasis; Translations: [Fagerstrom Score] Onset: 9 Conditions associated with dizziness or vertigo (6 sources) Dizziness and giddiness Onset: 6 Episodic Genitourinary symptoms and ill-defined conditions (4 sources) Dysuria; Translations: [Dysuria] Onset: 3 Episodic Headache, including migraine (6 sources) Headache Onset: 7 Episodic Inflammatory diseases of female pelvic organs [...] site] Onset: 6 Episodic Nausea and vomiting (8 sources) Nausea and vomiting; Translations: [Nausea with vomiting, unspecified] Onset: 3 03-26-2023 Episodic Neoplasms of unspecified nature or uncertain behavior (11 sources) Neoplasm of uncertain behavior of skin; Translations: [Neoplastic disease] Onset: 7 07-16-2023 Episodic Nonspecific chest pain (20 sources) Atypical chest pain; Translations: [Chest pain] Onset: 4 Resolved: 3 05-04-2014 Episodic Other aftercare (1 source) Encounter for other plastic and reconstructive surgery following medical procedure or healed injury; Translations: [Encounter for other plastic and reconstructive surgery following medical procedure or healed injury] Onset: 4 Episodic Other aftercare (1 source) Encounter for therapeutic drug level monitoring; Translations: [Encounter for therapeutic drug level monitoring] Onset: 3 Episodic Other connective tissue disease (7 sources) Pain in right lower limb; Translations: [Pain in limb] Onset: 3 Episodic Other connective tissue disease (12 sources) Pain in upper arm; Translations: [Pain in right upper arm] Onset: 3 Resolved: 4 11-19-2022 Episodic Other connective tissue disease (3 [...] Abnormality of gait Onset: 7 Episodic Other nervous system disorders (1 source) Other acute postprocedural pain; Translations: [Postoperative pain] Onset: 4 Episodic Other non-traumatic joint disorders (19 sources) [...] pharyngitis; Translations: [Pharyngitis Acute] Onset: 9 Episodic Residual codes; unclassified (20 sources) Tobacco user; Translations: [Tobacco use] Onset: 4 05-04-2014 Episodic Unclassified (18 sources) Patient encounter status; [...] Test Name Value Interpretation Reference Range Facility [place] [Moles/volume] in Se rum or PlasmaOrdered By: Joe Davis on 12-18-2023 [place] [Moles/Vol] 1.00 mmol/L Normal 0.60-1.20 [facility] Comment on above: Result Comment: PERF ORMED BY: [place] [address] PATHOLOGIST RAW STOCK MACHINE LOADER GATO PEÑA M.D. Performed By: #### C UU, ADDONUAPLUS #### [facility] [address] [place] [address] Cholesterol [Mass/volume] in Serum or PlasmaOrdered By: Joe Davis on 12-17-2023 Cholesterol [Mass/Vol] 133 mg/dL Low 140-200 [facility] Comment on above: Chol less than 200 m g/dl low riskChol 201-239 mg/dl borderline riskChol 240 mg/dl and greater high risk Result Comment: Chol less than 200 mg/dl low risk Chol 201-239 mg/dl borderline risk Chol 240 mg/dl and greater high risk Performed By: #### C BC, CMP, LIPASE #### [facility] [address] [id number] [facility] Cholesterol in LDL Calc [Mas s/Vol]Ordered By: Joe Davis on 12-17-2023 Cholesterol in LDL [Mass/Vol] 66 mg/dL 0-100 [facility] Comment on above: LDL ATP III CLASSIFI CATIONLDL less than 100 mg/dL OptimalLDL 100-129 mg/dL Near or above optimalLDL 130-159 mg/dL Borderline highLDL 160-189 mg/dL HighLDL greater than 189 mg/dL Very high Cholesterol in VLDL Calc [Ma ss/Vol]Ordered By: Joe Davis on 12-17-2023 Cholesterol in VLDL [Mass/Vol] 18 mg/dL [facility] ECG 12 lead ECGon 12-17-2023 ECG 12 lead ECG [facility] [place] [address] [id number] Electrocardiograph Report Signed Patient: Gail Almeida MR#: [id number] : 1955 Acct:[id number] Age/Sex: 68 / F ADM Date: 12/16/23 Loc: Room: [address] [place] [address] Type: ADM IN Attending Dr: Joe Davis MD Ordering Provider: Joe Davis MD Date of Service: 12/17/23 ECG/ECG 12 lead ECG: baseline Copies to: Test Reason : Blood Pressure : */* mmHG Vent. Rate : 59 BPM Atrial Rate : 59 BPM P-R Int : 182 ms QRS Dur : 152 ms QT Int : 474 ms P-R-T Axes : 71 -50 50 degrees QTcB Int : 469 ms Sinus bradycardia Right bundle branch block Left anterior fascicular block Bifascicular block Septal infarct (cited on or before 16-Aug-2023) Abnormal ECG When compared with ECG of 16-Aug-2023 09:55, Questionable change in initial forces of Septal leads Confirmed by MEMO CRAWFORD MD, FACC ([id number]) on 12/17/2023 4:48:59 PM Referred By: Electronically Signed By: MEMO CRAWFORD MD FACC Transcribed By: MUS Signed By Dayday Crawford MD 12/17/23 1649 Normal [facility] Lipid Panelon 12-17-2023 LDL Cholesterol,Calculated 66 mg/dL Normal 0-100 [facility] Comment on above: Result Comment: LDL ATP III CLASSIFICATION LDL less than 100 mg/dL Optimal LDL 100-129 mg/dL Near or above optimal LDL 130-159 mg/dL Borderline high LDL 160-189 mg/dL High LDL greater than 189 mg/dL Very high Performed By: #### C BC, CMP, LIPASE #### [facility] [address] Triglyceride w/Reflex 94 mg/dL Normal 0-149 [facility] Comment on above: Result Comment: TRIG ATP III CLASSIFICATION TRIG less than 150 mg/dL Normal TRIG 150-199 mg/dL Borderline high TRIG 200-500 mg/dL High TRIG greater than 500 mg/dL Very high Standard traceable to the Center for Disease Conrtrol and Prevention (CDC) test method. Performed By: #### C BC, CMP, LIPASE #### [facility] [address] VLDL CHOLESTEROL 18 mg/dL Normal [facility] Comment on above: Performed By: #### C BC, CMP, LIPASE #### [facility] [address] Serum or plasma high density lipoprotein (HDL) cholesterol measurementOrdered By: Joe Davis on 12-17-2023 Cholesterol in HDL [Mass/Vol] 48 mg/dL Normal 23-92 [facility] Comment on above: HDL CHOL ATP-III CLA SSIFICATION Cardiovascular RiskHDL > or equal to 60 mg/dL LOWHDL < 40 mg/dL HIGH Result Comment: HDL CHOL ATP-III CLASSIFICATION Cardiovascular Risk HDL > or equal to 60 mg/dL LOW HDL < 40 mg/dL HIGH Performed By: #### C BC, CMP, LIPASE #### [facility] [address] Serum or plasma total choles terol/high density lipoprotein (HDL) cholesterol mass ratOrdered By: Joe Davis on 12-17-2023 Cholesterol.total/Judy sterol in HDL [Mass ratio] 2.8 {ratio} Normal <5.0 [facility] Comment on above: Performed By: #### C BC, CMP, LIPASE #### [facility] [address] Thyroid Stim Hormone w/Rflxo n 12-17-2023 Thyroid Stim Hormone w/Rflx 0.27 u[iU]/mL Low 0.45-5.33 [facility] Comment on above: Performed By: #### C BC, CMP, LIPASE #### [facility] [address] Thyrotropin [Units/volume] i n Serum or PlasmaOrdered By: Joe Davis on 12-17-2023 TSH Qn 0.27 m[IU]/L Low 0.45-5.33 [facility] Thyroxine (T4) free [Mass/vo lume] in Serum or PlasmaOrdered By: Joe Davis on 12-17-2023 Free T4 [Mass/Vol] 0.79 ng/dL Normal 0.61-1.12 [facility] Comment on above: Performed By: #### C BC, CMP, LIPASE #### [facility] [address] Triglyceride [Mass/volume] i n Serum or PlasmaOrdered By: Joe Davis on 12-17-2023 Triglyceride [Mass/Vol] 94 mg/dL 0-149 [facility] Comment on above: TRIG ATP III CLASSIF ICATIONTRIG less than 150 mg/dL NormalTRIG 150-199 mg/dL Borderline highTRIG 200-500 mg/dL High TRIG greater than 500 mg/dL Very highStandard traceable to the Center for Disease Conrtrol and Prevention (CDC) test method. Vitamin D 25 Hydroxy Totalon 12-17-2023 Vitamin D 25 Hydroxy Total 26.0 ng/mL Low 30-100 [facility] Comment on above: Result Comment: EDUARDO MIN D STATUS 25(OH)VITAMIN D RANGE (ng/mL) Deficient <20 Insufficient 20 to <30 Sufficient 30 to 100 Reference: Lucio MF,Renée NC, Francisco CARPIO, et al. Evaluation,treatment, and prevention of vitamin D deficiency; an Endocrine Society clinical practice guideline. JCEM. 2010; 96(7):1911-. PERFORMED BY: [place] [address] PATHOLOGIST RAW STOCK MACHINE LOADER GATO PEÑA M.D. Performed By: #### C BC, CMP, LIPASE #### [facility] [address] [place] [address] Vitamin D+Metabolites [Mass/ volume] in Serum or PlasmaOrdered By: Joe Davis on 12-17-2023 Vitamin D+Metabolites [Mass/Vol] 26.0 ng/mL Low 30-100 [facility] Comment on above: VITAMIN D STATUS 25( OH)VITAMIN D RANGE (ng/mL) Deficient <20 Insufficient 20 to <30Sufficient 30 to 100Reference: Lucio MF,Renée NC, Francisco CARPIO, et al. Evaluation,treatment, and prevention of vitamin D deficiency; an Endocrine Society clinical practice guideline. JCEM. 2010; 96(7):1911-30. Alanine aminotransferase [En zymatic activity/volume] in Serum or PlasmaOrdered By: Juve Spears on 12-16-2023 ALT [Catalytic activity/Vol] 14 U/L Normal 7-52 [facility] Comment on above: Performed By: #### C UU, ADDONUAPLUS #### [facility] [address] [place] [address] Albumin [Mass/volume] in Ser um or Plasma by Bromocresol green (BCG) dye binding methoOrdered By: Juve Spears on 12-16-2023 Albumin BCG dye [Mass/Vol] 4.1 g/dL 3.5-5.7 [facility] Alkaline phosphatase [Enzyma tic activity/volume] in Serum or PlasmaOrdered By: Juve Spears on 12-16-2023 ALP [Catalytic activity/Vol] 101 U/L Normal 34-104 [facility] Comment on above: Performed By: #### C UU, ADDONUAPLUS #### [address] Amphetamine Screen Ql (U)Ord ered By: Juve Spears on 12-16-2023 Amphetamines Ql (U) Negative Negative [facility] Aspartate aminotransferase [ Enzymatic activity/volume] in Serum or PlasmaOrdered By: Juve Spears on 12-16-2023 AST [Catalytic activity/Vol] 16 U/L Normal 13-39 [facility] Comment on above: Performed By: #### C UU, ADDONUAPLUS #### [address] Automated basophil %Ordered By: Juve Spears on 12-16-2023 Basophils/100 WBC (Bld) 0.9 % Normal . [facility] Comment on above: Performed By: #### C UU, ADDONUAPLUS #### [address] Automated basophil countOrde red By: Juve Spears on 12-16-2023 Basophils (Bld) [#/Vol] 0.1 10*3/uL Normal 0.0-0.2 [facility] Comment on above: Result Comment: PERF ORMED BY: [place] [address] PATHOLOGIST RAW STOCK MACHINE LOADER GATO PEÑA M.D. Performed By: #### C UU, ADDONUAPLUS #### [address] Automated blood monocyte cou ntOrdered By: Juve Spears on 12-16-2023 Monocytes (Bld) [#/Vol] 0.5 10*3/uL Normal 0.0-0.8 [facility] Comment on above: Performed By: #### C UU, ADDONUAPLUS #### [address] Automated eosinophil %Ordere d By: Juve Spears on 12-16-2023 Eosinophils/100 WBC (Bld) 3.9 % Normal . [facility] Comment on above: Performed By: #### C UU, ADDONUAPLUS #### [address] Automated eosinophil countOr dered By: Juve Spears on 12-16-2023 Eosinophils (Bld) [#/Vol] 0.2 10*3/uL Normal 0.0-0.45 [facility] Comment on above: Performed By: #### C UU, ADDONUAPLUS #### [facility] [address] Automated monocyte %Ordered By: Juve Spears on 12-16-2023 Monocytes/100 WBC (Bld) 7.5 % Normal . [facility] Comment on above: Performed By: #### C UU, ADDONUAPLUS #### [facility] [address] Automated neutrophil %Ordere d By: Juve Spears on 12-16-2023 Neutrophils/100 WBC (Bld) 62.8 % Normal . [facility] Comment on above: Performed By: #### C UU, ADDONUAPLUS #### [facility] [address] [place] [address] Barbiturates [Presence] in U rine by Screen methodOrdered By: Juve Spears on 12-16-2023 Barbiturates Screen Ql (U) Negative Negative [facility] Benzodiazepines Screen Ql (U )Ordered By: Juve Spears on 12-16-2023 Benzodiazepines Ql (U) Negative Negative [facility] Benzoylecgonine [Presence] i n Urine by Screen methodOrdered By: Juve Spears on 12-16-2023 Benzoylecgonine Screen Ql (U) Negative Negative [facility] Bilirubin Test strip Ql (U)O rdered By: Juve Spears on 12-16-2023 Bilirubin Ql (U) Negative Negative [facility] Bilirubin.total [Mass/volume ] in Serum or PlasmaOrdered By: Juve Spears on 12-16-2023 Bilirubin [Mass/Vol] 0.3 mg/dL Normal 0.3-1.0 [facility] Comment on above: Performed By: #### C UU, ADDONUAPLUS #### [facility] [address] [place] [address] [place] Calcium [Mass/volume] in Ser um or PlasmaOrdered By: Juve Spears on 12-16-2023 Calcium [Mass/Vol] 9.8 mg/dL Normal 8.6-10.3 [facility] Comment on above: Performed By: #### C UU, KAIONUAPLUS #### [address] Cannabinoids [Presence] in U rine by Screen methodOrdered By: Juve Spears on 12-16-2023 Cannabinoids Screen Ql (U) Negative Negative [facility] Comment on above: These are unconfirme d results and should not be used for legal purposes. Drug Cut-Off Concentration: AMPH 1000 ng/mL PJ 200 ng/mL BETSY 200 ng/mL COCM 300 ng/mL OP 300 ng/mL PCP 25 ng/mL THC 20 ng/mL Carbon dioxide, total [Moles /volume] in Serum or PlasmaOrdered By: Juve Spears on 12-16-2023 CO2 [Moles/Vol] 22.9 mmol/L Normal 21.0-31.0 [facility] Comment on above: Performed By: #### C UU, ADDONUAPLUS #### [place] [address] [place] Chloride [Moles/volume] in S kishan or PlasmaOrdered By: Juve pSears on 12-16-2023 Chloride [Moles/Vol] 110 mmol/L High 98-107 [facility] Comment on above: Performed By: #### C UU, ADDONUAPLUS #### [address] Color of Urine by AutoOrdere d By: Juve Spears on 12-16-2023 Color (U) Colorless Normal Yellow [facility] Comment on above: Order Comment: Name Collection Type:: Clean-Voided Midstream Performed By: #### C BC, CMP, LIPASE #### [place] [address] [place] Complete Blood Count Auto Di ffon 12-16-2023 Mean Corpuscular HGB Conc 33.6 g/dL Normal 32.0-35.0 [facility] Comment on above: Performed By: #### C UU, ADDONUAPLUS #### [address] Monocytes/100 WBC (Bld) 17.55 % Normal 0.00-20.00 [facility] Comment on above: Performed By: #### C UU, ADDONUAPLUS #### [address] NRBC% 0.1 /100{WBC} Normal 0-0.5 [facility] Comment on above: Performed By: #### C UU, ADDONUAPLUS #### [address] Comprehensive Metabolic Pane eusebia 12-16-2023 Albumin [Mass/Vol] 4.1 g/dL Normal 3.5-5.7 [facility] Comment on above: Performed By: #### C UU, ADDONUAPLUS #### [address] Creatinine Clr Calc Pharmacy 32.44 Normal [facility] Comment on above: Result Comment: PERF ORMED BY: [place] [address] PATHOLOGIST RAW STOCK MACHINE LOADER GATO PEÑA M.D. Performed By: #### C UU, ADDONUAPLUS #### [address] GFR/1.73 sq M.predicted MDRD (S/P/Bld) [Vol rate/Area] 37.657 mL/min/{1.73_m2} Normal [facility] [facility] Comment on above: Performed By: #### C UU, ADDONUAPLUS #### [place] [address] [place] Creatinine [Mass/volume] in Serum or PlasmaOrdered By: Juve Spears on 12-16-2023 Creatinine [Mass/Vol] 1.51 mg/dL High 0.60-1.20 [facility] Comment on above: Performed By: #### C UU, ADDONUAPLUS #### [address] Drug Screen,Urineon 12-16-19 24 Amphetamine Screen,Urine Negative Normal Negative [facility] Comment on above: Performed By: #### C BC, CMP, LIPASE #### [address] Barbiturate Screen,Urine Negative Normal Negative [facility] Comment on above: Performed By: #### C BC, CMP, LIPASE #### [address] Benzodiazepines Screen,Urine Negative Normal Negative [facility] Comment on above: Performed By: #### C BC, CMP, LIPASE #### [address] Cannabinoid Screen,Urine Negative Normal Negative [facility] Comment on above: Result Comment: Thes e are unconfirmed results and should not be used for legal purposes. Drug Cut-Off Concentration: AMPH 1000 ng/mL PJ 200 ng/mL BETSY 200 ng/mL COCM 300 ng/mL OP 300 ng/mL PCP 25 ng/mL THC 20 ng/mL PERFORMED BY: [place] [address] PATHOLOGIST RAW STOCK MACHINE LOADER GATO PEÑA M.D. Performed By: #### C BC, CMP, LIPASE #### [address] Cocaine Screen,Urine Negative Normal Negative [facility] Comment on above: Performed By: #### C BC, CMP, LIPASE #### [address] Opiate Screen,Urine Negative Normal Negative [facility] Comment on above: Performed By: #### C BC, CMP, LIPASE #### [address] Phencyclidine Screen,Urine Negative Normal Negative [facility] Comment on above: Performed By: #### C BC, CMP, LIPASE #### [address] Erythrocyte distribution wid th [Ratio] by Automated countOrdered By: Juve Spears on 12-16-2023 Erythrocyte distribution width (RBC) [Ratio] 14.6 % Normal 11.9-15.3 [facility] Comment on above: Performed By: #### C UU, ADDONUAPLUS #### [facility] [address] [place] [address] [place] Erythrocytes [#/volume] in B lood by Automated countOrdered By: Juve Spears on 12-16-2023 RBC (Bld) [#/Vol] 3.85 10*6/uL Normal 3.60-5.00 [facility] Comment on above: Performed By: #### C UU, ADDONUAPLUS #### [facility] [address] [place] [address] [place] Ethanol [Mass/volume] in Ser um or PlasmaOrdered By: Juve Spears on 12-16-2023 Ethanol [Mass/Vol] mg/dL Normal [facility] Comment on above: Performed By: #### C UU, ADDONUAPLUS #### [facility] [address] [place] [address] [place] Ethanol [Mass/Vol] TNP [facility] Comment on above: Test not performed Ethyl Alcohol Profileon 12-01 Percent Ethanol Not performed Normal [facility] Comment on above: Result Comment: PERF ORMED BY: [place] [address] PATHOLOGIST RAW STOCK MACHINE LOADER GATO PEÑA M.D. Performed By: #### C UU, ADDONUAPLUS #### [facility] [address] [place] [address] [place] Glucose [Mass/volume] in Ser um or PlasmaOrdered By: Juve Spears on 12-16-2023 Glucose [Mass/Vol] 138 mg/dL High 70-100 [facility] Comment on above: ADA recommended refe rence rangeRandom Glucose Reference Range is dependent on time and content of last meal. Glucose of more than 200 mg/dL in a nonstressed, ambulatory subject supports the diagnosis of Diabetes Mellitus. Result Comment: [place] [facility] Glucose Reference Range is dependent on time and content of last meal. Glucose of more than 200 mg/dL in a nonstressed, ambulatory subject supports the diagnosis of Diabetes Mellitus. ADA recommended reference range Performed By: #### C UU, ADDONUAPLUS #### [facility] [address] [place] [address] [place] Glucose [Mass/volume] in Uri ne by Test stripOrdered By: Juve Spears on 12-16-2023 Glucose Test strip (U) [Mass/Vol] Normal mg/dL Normal [facility] Hematocrit [Volume Fraction] of Blood by Automated countOrdered By: Juve Spears on 12-16-2023 Hematocrit (Bld) [Volume fraction] 36.4 % Normal 34.0-46.4 [facility] Comment on above: Performed By: #### C UU, ADDONYANAPLUS #### [facility] [address] Hemoglobin Test strip Ql (U) Ordered By: Juve Spears on 12-16-2023 Hemoglobin Ql (U) Negative Negative [facility] Hemoglobin [Mass/volume] in BloodOrdered By: Juve Spears on 12-16-2023 Hemoglobin (Bld) [Mass/Vol] 12.2 g/dL Normal 11.8-15.4 [facility] Comment on above: Performed By: #### C UU, KAIONYANAPLUS #### [place] [address] [place] Ketones [Presence] in Urine by Test stripOrdered By: Juve Spears on 12-16-2023 Ketones Ql (U) Negative Normal Negative [facility] Comment on above: Order Comment: Name Collection Type:: Clean-Voided Midstream Performed By: #### C BC, CMP, LIPASE #### [place] [address] [place] Leukocyte esterase [Presence ] in Urine by Test stripOrdered By: Juve Spears on 12-16-2023 Leukocyte esterase Test strip Ql (U) Negative Normal Negative [facility] Comment on above: Order Comment: Name Collection Type:: Clean-Voided Midstream Performed By: #### C BC, CMP, LIPASE #### [facility] [address] [place] [address] [place] Leukocytes [#/volume] correc cornelia for nucleated erythrocytes in Blood by Automated counOrdered By: Juve Spears on 12-16-2023 WBC corrected for nucl RBC Auto (Bld) [#/Vol] 6.3 10*3/uL 3.8-11.6 [facility] Leukocytes [#/volume] in Blo od by Automated countOrdered By: Juve Spears on 12-16-2023 WBC (Bld) [#/Vol] 6.3 10*3/uL Normal 3.8-11.6 [facility] Comment on above: Performed By: #### C UU, ADDONUAPLUS #### [facility] [address] [place] [address] [place] Lymphocytes [#/volume] in Bl ood by Automated countOrdered By: Juve Spears on 12-16-2023 Lymphocytes (Bld) [#/Vol] 1.6 10*3/uL Normal 1.00-4.8 [facility] Comment on above: Performed By: #### C UU, ADDONUAPLUS #### [facility] [address] [place] [address] [place] Lymphocytes/100 leukocytes i n Blood by Automated countOrdered By: Juve Spears on 12-16-2023 Lymphocytes/100 WBC (Bld) 24.9 % Normal . [facility] Comment on above: Performed By: #### C UU, ADDONUAPLUS #### [facility] [address] [place] [address] MCH [Entitic mass] by Automa cornelia countOrdered By: Juve Spears on 12-16-2023 MCH (RBC) [Entitic mass] 31.7 pg Normal 24.7-34.3 [facility] Comment on above: Performed By: #### C UU, ADDONUAPLUS #### [facility] [address] [place] [address] MCHC Auto (RBC) [Mass/Vol]Or dered By: Juve Spears on 12-16-2023 MCHC (RBC) [Mass/Vol] 33.6 g/dL 32.0-35.0 [facility] MCV [Entitic volume] by Auto mated countOrdered By: Juve Spears on 12-16-2023 MCV (RBC) [Entitic vol] 94.5 fL Normal 80-100 [facility] Comment on above: Performed By: #### C SilasU, ROSALINDPLUS #### [facility] [address] Monocyte distribution width [Entitic volume] in Blood by AutomatedOrdered By: Juve Spears on 12-16-2023 Monocyte distribution width Auto (Bld) [Entitic vol] 17.55 % 0.00-20.00 [facility] Neutrophils [#/volume] in Bl ood by Automated countOrdered By: Juve Spears on 12-16-2023 Neutrophils (Bld) [#/Vol] 4.0 10*3/uL Normal 1.8-7.7 [facility] Comment on above: Performed By: #### C SilasU, ADDCHIDIPLUS #### [facility] [address] [place] [address] Nitrite Test strip Ql (U)Ord ered By: Juve Spears on 12-16-2023 Nitrite Ql (U) Negative Negative [facility] No Panel InformationOrdered By: Juve Spears on 12-16-2023 Estimated GFR (CKD-EPI) 37.657 mL/Min [facility] Creatinine Clearance (Chem 32.44 [facility] Nucleated erythrocytes [Pres ence] in Blood by Automated countOrdered By: Juve Spears on 12-16-2023 Nucleated RBC Auto Ql (Bld) 0.1 /100{WBC} 0-0.5 [facility] Opiates [Presence] in Urine by Screen methodOrdered By: Juve Spears on 12-16-2023 Opiates Screen Ql (U) Negative Negative [facility] Phencyclidine Screen Ql (U)O rdered By: Juve Spears on 12-16-2023 Phencyclidine Ql (U) Negative Negative [facility] Platelet mean volume [Entiti c volume] in Blood by Automated countOrdered By: Juve Spears on 12-16-2023 Platelet mean volume (Bld) [Entitic vol] 8.4 fL Normal 6.3-10.7 [facility] Comment on above: Performed By: #### C UU, ADDONUAPLUS #### [facility] [address] Platelets [#/volume] in Bloo d by Automated countOrdered By: Juve Spears on 12-16-2023 Platelets (Bld) [#/Vol] 229 10*3/uL Normal 150-450 [facility] Comment on above: Performed By: #### C UU, ADDONUAPLUS #### [facility] [address] [place] [address] Potassium [Moles/volume] in Serum or PlasmaOrdered By: Juve Spears on 12-16-2023 Potassium [Moles/Vol] 3.8 mmol/L Normal 3.5-5.1 [facility] Comment on above: Performed By: #### C UU, ADDONUAPLUS #### [address] Protein Test strip (U) [Mass /Vol]Ordered By: Juve Spears on 12-16-2023 Protein (U) [Mass/Vol] Negative Negative [facility] Protein [Mass/volume] in Ser um or PlasmaOrdered By: Juve Spears on 12-16-2023 Protein [Mass/Vol] 6.6 g/dL Normal 6.4-8.9 [facility] Comment on above: Performed By: #### C UU, ADDONUAPLUS #### [address] Serum globulin measurement b y calculation (mass/volume)Ordered By: Juve Spears on 12-16-2023 Globulin (S) [Mass/Vol] 2.5 g/dL Normal [facility] Comment on above: Performed By: #### C UU, ADDONUAPLUS #### [facility] [address] [place] [address] Serum or plasma albumin/glob ulin mass ratioOrdered By: Juve Spears on 12-16-2023 Albumin/Globulin [Mass ratio] 1.6 {ratio} Normal [facility] Comment on above: Performed By: #### C UU, ADDONUAPLUS #### [address] Serum or plasma anion gap de terminationOrdered By: Juve Spears on 12-16-2023 Anion gap [Moles/Vol] 9.9 mmol/L Normal 6.0-15.0 [facility] Comment on above: Performed By: #### C UU, ADDONUAPLUS #### [place] [address] [place] Sodium [Moles/volume] in Ser um or PlasmaOrdered By: Juve Spears on 12-16-2023 Sodium [Moles/Vol] 139 mmol/L Normal 136-145 [facility] Comment on above: Performed By: #### C UU, ADDONUAPLUS #### [address] Specific gravity Test strip (U) [Rel density]Ordered By: Juve Spears on 12-16-2023 Specific gravity (U) [Rel density] 1.005 1.001-1.03 0 [facility] Urea nitrogen [Mass/volume] in Serum or PlasmaOrdered By: Juve Spears on 12-16-2023 Urea nitrogen [Mass/Vol] 26 mg/dL High 7-25 [facility] Comment on above: Performed By: #### C UU, ADDONUAPLUS #### [address] Urinalysison 12-16-2023 Bilirubin,Urine Negative Normal Negative [facility] Comment on above: Order Comment: Name Collection Type:: Clean-Voided Midstream Performed By: #### C BC, CMP, LIPASE #### [address] Glucose Ql (U) Normal Normal Normal [facility] Comment on above: Order Comment: Name Collection Type:: Clean-Voided Midstream Performed By: #### C BC, CMP, LIPASE #### [address] Nitrite,Urine Negative Normal Negative [facility] Comment on above: Order Comment: Name Collection Type:: Clean-Voided Midstream Performed By: #### C BC, CMP, LIPASE #### [address] Occult Blood,Urine Negative Normal Negative [facility] Comment on above: Order Comment: Name Collection Type:: Clean-Voided Midstream Result Comment: PERF ORMED BY: [place] [address] PATHOLOGIST RAW STOCK MACHINE LOADER GATO PEÑA M.D. Performed By: #### C BC, CMP, LIPASE #### [address] Protein,Urine Negative Normal Negative [facility] Comment on above: Order Comment: Name Collection Type:: Clean-Voided Midstream Performed By: #### C BC, CMP, LIPASE #### [address] Specificy [place],Urine 1.005 Normal 1.00 1-1.03 0 [facility] Comment on above: Order Comment: Name Collection Type:: Clean-Voided Midstream Performed By: #### C BC, CMP, LIPASE #### [address] Urobilinogen,Urine Normal Normal Normal [facility] Comment on above: Order Comment: Name Collection Type:: Clean-Voided Midstream Performed By: #### C BC, CMP, LIPASE #### [address] Urine appearanceOrdered By: Juve Spears on 12-16-2023 Appearance (U) Clear Normal Clear [facility] Comment on above: Order Comment: Name Collection Type:: Clean-Voided Midstream Performed By: #### C BC, CMP, LIPASE #### [address] Urobilinogen Test strip (U) [Mass/Vol]Ordered By: Juve Spears on 12-16-2023 Urobilinogen (U) [Mass/Vol] Normal mg/dL Normal [facility] pH of Urine by Test stripOrd ered By: Juve Spears on 12-16-2023 pH (U) 7.0 [pH] Normal 5.0-9.0 [facility] Comment on above: Order Comment: Name Collection Type:: Clean-Voided Midstream Performed By: #### C BC, CMP, LIPASE #### [facility] [address] [place] [id number] [facility] CNOVon 09-27-2023 CNOV Office Visit (OTOLMN ) -------- GAIL ALMEIDA ([id number]) 1955 F Date Time Provider Department 09/27/23 9:45 AM YANDEL DANIEL OTOLMN During your visit today, we recorded the following information about you: Yandel Daniel MD 09/28/2023 1:37 PM Signed Gail Almeida [id number] September 27, 2023 [facility] Note CC: Follow-up thyroid cancer Last clinic visit on 06/28/2023 HPI: Patient is a 67 year old female current smoker (0.25 ppd, 10py) with a history COPD, bipolar, schizoaffective disorder, s/p total thyroidectomy on 06/18/23 (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 Today, the patient reports she is doing well without questions or concerns. Tolerating a regular diet, maintaining her weight, no voice changes. Current Outpatient Medications Medication Sig Dispense Refill calcium carbonate (OS-RL 500) 500 mg calcium [...] by mouth every 12 hours as needed. xpkfwo-pfblgnng-kkurbce (ENZADYNE) 9,000-112,500- 112,500 unit capsule Take 1 [...] Overall: no obvious scars, lesions or masses Parotid and submandibular glands: no masses or tenderness Facial strength: normal and equal bilaterally Ear, Nose, Mouth AND Throat - Ears: both left and right external auditory canals and TM's are normal, no external deformities Nasal exam: mucosa is pink, septum is midline, visible turbinates are normal on anterior rhinoscopy Oral Cavity and oropharynx: mucosa, hard and soft palates, tongue, tonsil area, posterior pharyngeal wall, lips and gums are without lesions Neck: appears symmetric, and on palpation is without masses or lymphadenopathy Thyroid: no asymmetry, to masses or lesions, well healed midline scar Neuro: CN III - CN XII grossly intact IMAGING/PATHOLOGY: Surgical Pathology 06/18/2023: FINAL DIAGNOSIS A,B. 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 - No parathyroid glands or lymph nodes were identified. - Negative for malignancy. 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 She is doing well. PLAN AND RECOMMENDATIONS: Follow-up as needed Lulu Reyes MD for the service of Yandel Daniel MD September 28, 2023 I participated in the history and physical exam of Gail Miller (more content not included)... Normal [facility] Basic Metabolic Panelon 08-01 Creatinine Clr Calc Pharmacy 37.44 Normal [facility] Comment on above: Order Comment: Comme nt Prior to surgery on 08/19 Result Comment: PERF ORMED BY: [place] [address] PATHOLOGIST RAW STOCK MACHINE LOADER GATO PEÑA M.D. Performed By: #### C IVAN FELIX #### [address] GFR/1.73 sq M.predicted MDRD (S/P/Bld) [Vol rate/Area] 42.961 mL/min/{1.73_m2} Normal [facility] Comment on above: Order Comment: Comme nt Prior to surgery on 08/19 Performed By: #### C UU, ADDONUAPLUS #### [facility] [address] [place] [address] [place] Calcium [Mass/volume] in Ser um or PlasmaOrdered By: Pieter Carolina on 08-20-2023 Calcium [Mass/Vol] 9.7 mg/dL Normal 8.6-10.3 [facility] Comment on above: Order Comment: Comme nt Prior to surgery on 08/19 Performed By: #### C UU, ADDONUAPLUS #### [facility] [address] [place] [address] [place] Carbon dioxide, total [Moles /volume] in Serum or PlasmaOrdered By: Pieter Carolina on 08-20-2023 CO2 [Moles/Vol] 22.2 mmol/L Normal 21.0-31.0 [facility] Comment on above: Order Comment: Comme nt Prior to surgery on 08/19 Performed By: #### C UU, ADDONUAPLUS #### [facility] [address] [place] [address] [place] Chloride [Moles/volume] in S kishan or PlasmaOrdered By: Pieter Carolina on 08-20-2023 Chloride [Moles/Vol] 112 mmol/L High 98-107 [facility] Comment on above: Order Comment: Comme nt Prior to surgery on 08/19 Performed By: #### C UU, ADDONUAPLUS #### [facility] [address] [place] [address] [place] Creatinine [Mass/volume] in Serum or PlasmaOrdered By: Pieter Carolina on 08-20-2023 Creatinine [Mass/Vol] 1.36 mg/dL High 0.60-1.20 [facility] Comment on above: Order Comment: Comme nt Prior to surgery on 08/19 Performed By: #### C UU, ADDONUAPLUS #### [facility] [address] [place] [id number] [place] Glucose [Mass/volume] in Ser um or PlasmaOrdered By: Pieter Carolina on 08-20-2023 Glucose [Mass/Vol] 98 mg/dL Normal 70-100 [facility] Comment on above: ADA recommended refe rence rangeRandom Glucose Reference Range is dependent on time and content of last meal. Glucose of more than 200 mg/dL in a nonstressed, ambulatory subject supports the diagnosis of Diabetes Mellitus. Order Comment: Comme nt Prior to surgery on 08/19 Result Comment: [facility] Glucose Reference Range is dependent on time and content of last meal. Glucose of more than 200 mg/dL in a nonstressed, ambulatory subject supports the diagnosis of Diabetes Mellitus. ADA recommended reference range Performed By: #### C UU, ADDONUAPLUS #### [facility] [address] No Panel InformationOrdered By: Pieter Carolina on 08-20-2023 Estimated GFR (CKD-EPI) 42.961 mL/Min [facility] Creatinine Clearance (Chem 37.44 [facility] Potassium [Moles/volume] in Serum or PlasmaOrdered By: Pieter Carolina on 08-20-2023 Potassium [Moles/Vol] 4.5 mmol/L Normal 3.5-5.1 [facility] Comment on above: Order Comment: Comme nt Prior to surgery on 08/19 Performed By: #### C UU, ADDONUAPLUS #### [facility] [address] [place] [address] Serum or plasma anion gap de terminationOrdered By: Pieter Carolina on 08-20-2023 Anion gap [Moles/Vol] 12.3 mmol/L Normal 6.0-15.0 [facility] Comment on above: Order Comment: Comme nt Prior to surgery on 08/19 Performed By: #### C UU, ADDONUAPLUS #### [facility] [address] [place] [address] Sodium [Moles/volume] in Ser um or PlasmaOrdered By: Pieter Carolina on 08-20-2023 Sodium [Moles/Vol] 142 mmol/L Normal 136-145 [facility] Comment on above: Order Comment: Comme nt Prior to surgery on 08/19 Performed By: #### C UU, ADDONUAPLUS #### [facility] [address] [place] [id number] [place] Urea nitrogen [Mass/volume] in Serum or PlasmaOrdered By: Pieter Carolina on 08-20-2023 Urea nitrogen [Mass/Vol] 39 mg/dL High 7-25 [facility] Comment on above: Order Comment: Comme nt Prior to surgery on 08/19 Performed By: #### C UU, ADDONUAPLUS #### [facility] [address] [place] [id number] [place] Cholesterol [Mass/volume] in Serum or PlasmaOrdered By: Joe Davis on 08-16-2023 Cholesterol [Mass/Vol] 150 mg/dL Normal 140-200 [facility] Comment on above: Chol less than 200 m g/dl low riskChol 201-239 mg/dl borderline riskChol 240 mg/dl and greater high risk Result Comment: Chol less than 200 mg/dl low risk Chol 201-239 mg/dl borderline risk Chol 240 mg/dl and greater high risk Performed By: #### C UU, ADDONUAPLUS #### [facility] [address] [place] [id number] [facility] Cholesterol in LDL Calc [Mas s/Vol]Ordered By: Joe Davis on 08-16-2023 Cholesterol in LDL [Mass/Vol] 74 mg/dL 0-100 [facility] Comment on above: LDL ATP III CLASSIFI CATIONLDL less than 100 mg/dL OptimalLDL 100-129 mg/dL Near or above optimalLDL 130-159 mg/dL Borderline highLDL 160-189 mg/dL HighLDL greater than 189 mg/dL Very high Cholesterol in VLDL Calc [Ma ss/Vol]Ordered By: Joe Davis on 08-16-2023 Cholesterol in VLDL [Mass/Vol] 11 mg/dL [facility] ECG 12 lead ECGon 08-16-2023 ECG 12 lead ECG [facility] [address] [place] [address] [place] [address] Electrocardiograph Report Signed Patient: Gail Almeida MR#: [id number] : 1955 Acct:[id number] Age/Sex: 67 / F ADM Date: 08/15/23 Loc: Room: [address] [place] [address] Type: ADM IN Attending Dr: Joe Davis MD Ordering Provider: Joe Davis MD Date of Service: 08/16/23 ECG/ECG 12 lead ECG: baseline for psych meds Copies to: Test Reason : Blood Pressure : / mmHG Vent. Rate : 069 BPM Atrial Rate : 069 BPM P-R Int : 180 ms QRS Dur : 142 ms QT Int : 446 ms P-R-T Axes : 051 -69 031 degrees QTc Int : 477 ms Normal sinus rhythm Right bundle branch block Left anterior fascicular block Bifascicular block Minimal voltage criteria for LVH, may be normal variant Septal infarct , age undetermined Abnormal ECG When compared with ECG of 26-MAR-2023 07:21, Septal infarct is now present Confirmed by RENNY ESPANA MD ([id number]) on 08/16/2023 2:38:24 PM Referred By: Electronically Signed By:RENNY ESPANA MD Transcribed By: MUS Signed By Renny Espana MD 0 08/16/23 1438 Normal [facility] Lipid Panelon 08-16-2023 LDL Cholesterol,Calculated 74 mg/dL Normal 0-100 [facility] Comment on above: Result Comment: LDL ATP III CLASSIFICATION LDL less than 100 mg/dL Optimal LDL 100-129 mg/dL Near or above optimal LDL 130-159 mg/dL Borderline high LDL 160-189 mg/dL High LDL greater than 189 mg/dL Very high Performed By: #### C IVAN FELIX #### [address] Triglyceride w/Reflex 57 mg/dL Normal 0-149 [facility] Comment on above: Result Comment: TRIG ATP III CLASSIFICATION TRIG less than 150 mg/dL Normal TRIG 150-199 mg/dL Borderline high TRIG 200-500 mg/dL High TRIG greater than 500 mg/dL Very high Standard traceable to the Center for Disease Conrtrol and Prevention (CDC) test method. Performed By: #### C UU, ADDONUAPLUS #### [facility] [address] [place] [address] VLDL CHOLESTEROL 11 mg/dL Normal [facility] Comment on above: Performed By: #### C UU, ADDONUAPLUS #### [address] [place] [Moles/volume] in Se rum or PlasmaOrdered By: Joe Davis on 08-16-2023 [place] [Moles/Vol] 0.50 mmol/L Low 0.60-1.20 [facility] Comment on above: Result Comment: PERF ORMED BY: [place] [address] PATHOLOGIST RAW STOCK MACHINE LOADER GATO PEÑA M.D. Performed By: #### C USilas, ADDONUAPLUS #### [address] Serum or plasma high density lipoprotein (HDL) cholesterol measurementOrdered By: Joe Davis on 08-16-2023 Cholesterol in HDL [Mass/Vol] 65 mg/dL Normal 23-92 [facility] Comment on above: HDL CHOL ATP-III CLA SSIFICATION Cardiovascular RiskHDL > or equal to 60 mg/dL LOWHDL < 40 mg/dL HIGH Result Comment: HDL CHOL ATP-III CLASSIFICATION Cardiovascular Risk HDL > or equal to 60 mg/dL LOW HDL < 40 mg/dL HIGH Performed By: #### C USilas, ADDONUAPLUS #### [address] Serum or plasma total choles terol/high density lipoprotein (HDL) cholesterol mass ratOrdered By: Joe Davis on 08-16-2023 Cholesterol.total/Judy sterol in HDL [Mass ratio] 2.3 {ratio} Normal <5.0 [facility] Comment on above: Performed By: #### C UU, ADDONUAPLUS #### [address] Thyroid Stim Hormone w/Rflxo n 08-16-2023 Thyroid Stim Hormone w/Rflx 9.75 u[iU]/mL High 0.45-5.33 [facility] Comment on above: Performed By: #### C ISIDRO, ADDONUAPLUS #### [facility] [address] [place] [address] [facility] Thyrotropin [Units/volume] i n Serum or PlasmaOrdered By: Joe Davis on 08-16-2023 TSH Qn 9.75 m[IU]/L 0.45-5.33 [facility] Thyroxine (T4) free [Mass/vo lume] in Serum or PlasmaOrdered By: Joe Davis on 08-16-2023 Free T4 [Mass/Vol] 0.69 ng/dL Normal 0.61-1.12 [facility] Comment on above: Performed By: #### C UU, ADDONUAPLUS #### [facility] [address] [place] [address] [facility] Triglyceride [Mass/volume] i n Serum or PlasmaOrdered By: Joe Davis on 08-16-2023 Triglyceride [Mass/Vol] 57 mg/dL 0-149 [facility] Comment on above: TRIG ATP III CLASSIF ICATIONTRIG less than 150 mg/dL NormalTRIG 150-199 mg/dL Borderline highTRIG 200-500 mg/dL High TRIG greater than 500 mg/dL Very highStandard traceable to the Center for Disease Conrtrol and Prevention (CDC) test method. Vitamin D 25 Hydroxy Totalon 08-16-2023 Vitamin D 25 Hydroxy Total 28.6 ng/mL Low 30-100 [facility] Comment on above: Result Comment: EDUARDO MIN D STATUS 25(OH)VITAMIN D RANGE (ng/mL) Deficient <20 Insufficient 20 to <30 Sufficient 30 to 100 Reference: Lucio MF,Renée NC, Francisco CARPIO, et al. Evaluation,treatment, and prevention of vitamin D deficiency; an Endocrine Society clinical practice guideline. JCEM. 2010; 96(7):1911-30. PERFORMED BY: [address] [address] PATHOLOGIST RAW STOCK MACHINE LOADER GATO PEÑA M.D. Performed By: #### C UU, ADDONUAPLUS #### [facility] [address] Vitamin D+Metabolites [Mass/ volume] in Serum or PlasmaOrdered By: Joe Davis on 08-16-2023 Vitamin D+Metabolites [Mass/Vol] 28.6 ng/mL 30-100 [facility] Comment on above: VITAMIN D STATUS 25( [place])VITAMIN D RANGE (ng/mL) Deficient <20 Insufficient 20 to <30Sufficient 30 to 100Reference: Lucio MF,Renée NC, Francisco CARPIO, et al. Evaluation,treatment, and prevention of vitamin D deficiency; an Endocrine Society clinical practice guideline. JCEM. 2010; 96(7):1911-30. Alanine aminotransferase [En zymatic activity/volume] in Serum or PlasmaOrdered By: Nimesh Westfall on 08-15-2023 ALT [Catalytic activity/Vol] 33 U/L Normal 7-52 [facility] Comment on above: Performed By: #### C BC, CMP, LIPASE #### [facility] [address] Albumin [Mass/volume] in Ser um or Plasma by Bromocresol green (BCG) dye binding methoOrdered By: Nimesh Westfall on 08-15-2023 Albumin BCG dye [Mass/Vol] 4.5 g/dL 3.5-5.7 [facility] Alkaline phosphatase [Enzyma tic activity/volume] in Serum or PlasmaOrdered By: Nimesh Westfall on 08-15-2023 ALP [Catalytic activity/Vol] 96 U/L Normal 34-104 [facility] Comment on above: Performed By: #### C BC, CMP, LIPASE #### [facility] [address] Amphetamine Screen Ql (U)Ord ered By: Nimesh Westfall on 08-15-2023 Amphetamines Ql (U) Negative Negative [facility] Aspartate aminotransferase [ Enzymatic activity/volume] in Serum or PlasmaOrdered By: Nimesh Westfall on 08-15-2023 AST [Catalytic activity/Vol] 21 U/L Normal 13-39 [facility] Comment on above: Performed By: #### C BC, CMP, LIPASE #### [address] Automated basophil %Ordered By: Nimesh Westfall on 08-15-2023 Basophils/100 WBC (Bld) 1.3 % Normal . [facility] Comment on above: Performed By: #### C BC, CMP, LIPASE #### [address] Automated basophil countOrde red By: Nimesh Westfall on 08-15-2023 Basophils (Bld) [#/Vol] 0.1 10*3/uL Normal 0.0-0.2 [facility] Comment on above: Result Comment: PERF ORMED BY: [place] [address] PATHOLOGIST RAW STOCK MACHINE LOADER GATO PEÑA M.D. Performed By: #### C BC, CMP, LIPASE #### [address] Automated blood monocyte cou ntOrdered By: Nimesh Westfall on 08-15-2023 Monocytes (Bld) [#/Vol] 0.5 10*3/uL Normal 0.0-0.8 [facility] Comment on above: Performed By: #### C BC, CMP, LIPASE #### [address] Automated eosinophil %Ordere d By: Nimesh Westfall on 08-15-2023 Eosinophils/100 WBC (Bld) 6.4 % Normal . [facility] Comment on above: Performed By: #### C BC, CMP, LIPASE #### [address] Automated eosinophil countOr dered By: Nimesh Westfall on 08-15-2023 Eosinophils (Bld) [#/Vol] 0.3 10*3/uL Normal 0.0-0.45 [facility] Comment on above: Performed By: #### C BC, CMP, LIPASE #### [address] [place] [address] [place] Automated erythrocytes count in urine sediment (number/area)Ordered By: Nimesh Westfall on 08-15-2023 RBC Auto (Urine sed) [#/Area] None seen [HPF] 0-4 [facility] Automated leukocytes count i n urine sediment (number/area)Ordered By: Nimesh Westfall on 08-15-2023 WBC Auto (Urine sed) [#/Area] 3-4 [HPF] 0-4 [facility] Automated monocyte %Ordered By: Nimesh Westfall on 08-15-2023 Monocytes/100 WBC (Bld) 10.6 % Normal . [facility] Comment on above: Performed By: #### C BC, CMP, LIPASE #### [address] Automated neutrophil %Ordere d By: Nimesh Westfall on 08-15-2023 Neutrophils/100 WBC (Bld) 45.1 % Normal . [facility] Comment on above: Performed By: #### C BC, CMP, LIPASE #### [address] Automated urine color determ inationOrdered By: iNmesh Westfall on 08-15-2023 Color (U) Yellow Normal Yellow [facility] Comment on above: Order Comment: Name Collection Type:: Clean-Voided Midstream Performed By: #### C UU, ADDONUAPLUS #### [address] Barbiturates [Presence] in U rine by Screen methodOrdered By: Nimesh Westfall on 08-15-2023 Barbiturates Screen Ql (U) Negative Negative [facility] Benzodiazepines Screen Ql (U )Ordered By: Nimesh Westfall on 08-15-2023 Benzodiazepines Ql (U) Negative Negative [facility] Benzoylecgonine [Presence] i n Urine by Screen methodOrdered By: Nimesh Westfall on 08-15-2023 Benzoylecgonine Screen Ql (U) Negative Negative [facility] Bilirubin Test strip Ql (U)O rdered By: Nimesh Westfall on 08-15-2023 Bilirubin Ql (U) Negative Negative [facility] Bilirubin.total [Mass/volume ] in Serum or PlasmaOrdered By: Nimesh Westfall on 08-15-2023 Bilirubin [Mass/Vol] 0.3 mg/dL Normal 0.3-1.0 [facility] Comment on above: Performed By: #### C BC, CMP, LIPASE #### [address] Calcium [Mass/volume] in Ser um or PlasmaOrdered By: Nimesh Westfall on 08-15-2023 Calcium [Mass/Vol] 9.4 mg/dL Normal 8.6-10.3 [facility] Comment on above: Performed By: #### C BC, CMP, LIPASE #### [address] Cannabinoids [Presence] in U rine by Screen methodOrdered By: Nimesh Westfall on 08-15-2023 Cannabinoids Screen Ql (U) Negative Negative [facility] Comment on above: These are unconfirme d results and should not be used for legal purposes. Drug Cut-Off Concentration: AMPH 1000 ng/mL PJ 200 ng/mL BETSY 200 ng/mL COCM 300 ng/mL OP 300 ng/mL PCP 25 ng/mL THC 20 ng/mL Carbon dioxide, total [Moles /volume] in Serum or PlasmaOrdered By: Nimesh Westfall on 08-15-2023 CO2 [Moles/Vol] 25.3 mmol/L Normal 21.0-31.0 [facility] Comment on above: Performed By: #### C BC, CMP, LIPASE #### [facility] [address] [place] [address] [place] Chloride [Moles/volume] in S kishan or PlasmaOrdered By: Nimesh Westfall on 08-15-2023 Chloride [Moles/Vol] 109 mmol/L High 98-107 [facility] Comment on above: Performed By: #### C BC, CMP, LIPASE #### [address] Complete Blood Count Auto Di ffon 08-15-2023 Mean Corpuscular HGB Conc 33.0 g/dL Normal 32.0-35.0 [facility] Comment on above: Performed By: #### C BC, CMP, LIPASE #### [address] Monocytes/100 WBC (Bld) 16.42 % Normal 0.00-20.00 [facility] Comment on above: Performed By: #### C BC, CMP, LIPASE #### [address] NRBC% 0.1 /100{WBC} Normal 0-0.5 [facility] Comment on above: Performed By: #### C BC, CMP, LIPASE #### [address] Comprehensive Metabolic Pane eusebia 08-15-2023 Albumin [Mass/Vol] 4.5 g/dL Normal 3.5-5.7 [facility] Comment on above: Performed By: #### C BC, CMP, LIPASE #### [address] Creatinine Clr Calc Pharmacy 40.94 Normal [facility] Comment on above: Result Comment: PERF ORMED BY: [place] [address] PATHOLOGIST RAW STOCK MACHINE LOADER GATO PEÑA M.D. Performed By: #### C BC, CMP, LIPASE #### [address] GFR/1.73 sq M.predicted MDRD (S/P/Bld) [Vol rate/Area] 47.997 mL/min/{1.73_m2} Normal [facility] Comment on above: Performed By: #### C BC, CMP, LIPASE #### [address] Creatinine [Mass/volume] in Serum or PlasmaOrdered By: Nimesh Westfall on 08-15-2023 Creatinine [Mass/Vol] 1.24 mg/dL High 0.60-1.20 [facility] Comment on above: Performed By: #### C BC, CMP, LIPASE #### [address] Dipstick and Microscopicon 0 08-15-2023 Appearance (U) Clear Normal Clear [facility] Comment on above: Order Comment: Name Collection Type:: Clean-Voided Midstream Performed By: #### C UU, ADDONUAPLUS #### [address] Bacteria,Urine None Seen Normal None Seen [facility] Comment on above: Order Comment: Name Collection Type:: Clean-Voided Midstream Performed By: #### C UU, ADDONUAPLUS #### [address] Bilirubin,Urine Negative Normal Negative [facility] Comment on above: Order Comment: Name Collection Type:: Clean-Voided Midstream Performed By: #### C UU, ADDONUAPLUS #### [address] Glucose Ql (U) Normal Normal Normal [facility] Comment on above: Order Comment: Name Collection Type:: Clean-Voided Midstream Performed By: #### C UU, ADDONUAPLUS #### [address] Hyaline Casts,Urine None Seen Normal 0-8 [facility] Comment on above: Order Comment: Name Collection Type:: Clean-Voided Midstream Result Comment: PERF ORMED BY: [place] [address] PATHOLOGIST RAW STOCK MACHINE LOADER GATO PEÑA M.D. Performed By: #### C UU, ADDONUAPLUS #### [address] Ketones Ql (U) Negative Normal Negative [facility] Comment on above: Order Comment: Name Collection Type:: Clean-Voided Midstream Performed By: #### C UU, ADDONUAPLUS #### [address] Leukocyte esterase Test strip Ql (U) 3+ High Negative [facility] Comment on above: Order Comment: Name Collection Type:: Clean-Voided Midstream Performed By: #### C UU, ADDONUAPLUS #### [place] [address] [place] Nitrite,Urine Negative Normal Negative [facility] Comment on above: Order Comment: Name Collection Type:: Clean-Voided Midstream Performed By: #### C UU, ADDONUAPLUS #### [address] Occult Blood,Urine Negative Normal Negative [facility] Comment on above: Order Comment: Name Collection Type:: Clean-Voided Midstream Result Comment: PERF ORMED BY: [place] [address] PATHOLOGIST RAW STOCK MACHINE LOADER GATO PEÑA M.D. Performed By: #### C UU, ADDONUAPLUS #### [address] Protein,Urine Negative Normal Negative [facility] Comment on above: Order Comment: Name Collection Type:: Clean-Voided Midstream Performed By: #### C UU, ADDONUAPLUS #### [address] RBC,Urine None Seen Normal 0-4 [facility] Comment on above: Order Comment: Name Collection Type:: Clean-Voided Midstream Performed By: #### C UU, ADDONUAPLUS #### [address] Specificy [place],Urine 1.005 Normal 1.00 1-1.03 0 [facility] Comment on above: Order Comment: Name Collection Type:: Clean-Voided Midstream Performed By: #### C UU, ADDONUAPLUS #### [address] Squamous Epithelial Cell,Urine None Seen Normal 0-2 [facility] Comment on above: Order Comment: Name Collection Type:: Clean-Voided Midstream Performed By: #### C UU, ADDONUAPLUS #### [address] Urobilinogen,Urine Normal Normal Normal [facility] Comment on above: Order Comment: Name Collection Type:: Clean-Voided Midstream Performed By: #### C UU, ADDONUAPLUS #### [place] [address] [place] WBC,Urine 3-4 Normal 0-4 [facility] Comment on above: Order Comment: Name Collection Type:: Clean-Voided Midstream Performed By: #### C UU, ADDONUAPLUS #### [place] [address] [place] Drug Screen,Urineon 08-15-19 24 Amphetamine Screen,Urine Negative Normal Negative [facility] Comment on above: Performed By: #### C UU, ADDONUAPLUS #### [address] Barbiturate Screen,Urine Negative Normal Negative [facility] Comment on above: Performed By: #### C UU, ADDONUAPLUS #### [place] [address] [place] Benzodiazepines Screen,Urine Negative Normal Negative [facility] Comment on above: Performed By: #### C UU, ADDONUAPLUS #### [address] Cannabinoid Screen,Urine Negative Normal Negative [facility] Comment on above: Result Comment: Thes e are unconfirmed results and should not be used for legal purposes. Drug Cut-Off Concentration: AMPH 1000 ng/mL PJ 200 ng/mL BETSY 200 ng/mL COCM 300 ng/mL OP 300 ng/mL PCP 25 ng/mL THC 20 ng/mL PERFORMED BY: [place] [address] PATHOLOGIST RAW STOCK MACHINE LOADER GATO PEÑA M.D. Performed By: #### C UU, ADDONUAPLUS #### [address] Cocaine Screen,Urine Negative Normal Negative [facility] Comment on above: Performed By: #### C UU, ADDONUAPLUS #### [address] Opiate Screen,Urine Negative Normal Negative [facility] Comment on above: Performed By: #### C UU, ADDONUAPLUS #### [address] Phencyclidine Screen,Urine Negative Normal Negative [facility] Comment on above: Performed By: #### C UU, ADDONUAPLUS #### [address] Erythrocyte distribution wid th [Ratio] by Automated countOrdered By: Nimesh Westfall on 08-15-2023 Erythrocyte distribution width (RBC) [Ratio] 14.2 % Normal 11.9-15.3 [facility] Comment on above: Performed By: #### C BC, CMP, LIPASE #### [address] Erythrocytes [#/volume] in B lood by Automated countOrdered By: Nimesh Westfall on 08-15-2023 RBC (Bld) [#/Vol] 3.95 10*6/uL Normal 3.60-5.00 [facility] Comment on above: Performed By: #### C BC, CMP, LIPASE #### [address] Ethanol [Mass/volume] in Ser um or PlasmaOrdered By: Nimesh Westfall on 08-15-2023 Ethanol [Mass/Vol] mg/dL Normal [facility] Comment on above: Performed By: #### C BC, CMP, LIPASE #### [address] Ethanol [Mass/Vol] TNP [facility] Comment on above: Test not performed Ethyl Alcohol Profileon 08-01 Percent Ethanol Not performed Normal [facility] Comment on above: Result Comment: PERF ORMED BY: [place] [address] PATHOLOGIST RAW STOCK MACHINE LOADER GATO PEÑA M.D. Performed By: #### C BC, CMP, LIPASE #### [facility] [address] Glucose [Mass/volume] in Ser um or PlasmaOrdered By: Nimesh Westfall on 08-15-2023 Glucose [Mass/Vol] 113 mg/dL High 70-100 [facility] Comment on above: ADA recommended refe rence rangeRandom Glucose Reference Range is dependent on time and content of last meal. Glucose of more than 200 mg/dL in a nonstressed, ambulatory subject supports the diagnosis of Diabetes Mellitus. Result Comment: [place] [facility] Glucose Reference Range is dependent on time and content of last meal. Glucose of more than 200 mg/dL in a nonstressed, ambulatory subject supports the diagnosis of Diabetes Mellitus. ADA recommended reference range Performed By: #### C BC, CMP, LIPASE #### [address] Hematocrit [Volume Fraction] of Blood by Automated countOrdered By: Nimesh Westfall on 08-15-2023 Hematocrit (Bld) [Volume fraction] 37.3 % Normal 34.0-46.4 [facility] Comment on above: Performed By: #### C BC, CMP, LIPASE #### [facility] [address] Hemoglobin [Mass/volume] in BloodOrdered By: Nimesh Westfall on 08-15-2023 Hemoglobin (Bld) [Mass/Vol] 12.3 g/dL Normal 11.8-15.4 [facility] Comment on above: Performed By: #### C BC, CMP, LIPASE #### [address] Ketones Auto test strip (U) [Mass/Vol]Ordered By: Nimesh Westfall on 08-15-2023 Ketones (U) [Mass/Vol] Negative Negative [facility] - UrinalysisOrder ed By: Nimesh Westfall on 08-15-2023 Hyaline casts LM Ql (Urine sed) None seen [LPF] 0-8 [facility] Leukocytes [#/volume] correc cornelia for nucleated erythrocytes in Blood by Automated counOrdered By: Nimesh Westfall on 08-15-2023 WBC corrected for nucl RBC Auto (Bld) [#/Vol] 4.7 10*3/uL 3.8-11.6 [facility] Leukocytes [#/volume] in Blo od by Automated countOrdered By: Nimesh Westfall on 08-15-2023 WBC (Bld) [#/Vol] 4.7 10*3/uL Normal 3.8-11.6 [facility] Comment on above: Performed By: #### C BC, CMP, LIPASE #### [facility] [address] [place] [address] Lymphocytes [#/volume] in Bl ood by Automated countOrdered By: Nimesh Westfall on 08-15-2023 Lymphocytes (Bld) [#/Vol] 1.7 10*3/uL Normal 1.00-4.8 [facility] Comment on above: Performed By: #### C BC, CMP, LIPASE #### [address] Lymphocytes/100 leukocytes i n Blood by Automated countOrdered By: Nimesh Westfall on 08-15-2023 Lymphocytes/100 WBC (Bld) 36.6 % Normal . [facility] Comment on above: Performed By: #### C BC, CMP, LIPASE #### [address] MCH [Entitic mass] by Automa cornelia countOrdered By: Nimesh Westfall on 08-15-2023 MCH (RBC) [Entitic mass] 31.2 pg Normal 24.7-34.3 [facility] Comment on above: Performed By: #### C BC, CMP, LIPASE #### [address] MCHC Auto (RBC) [Mass/Vol]Or dered By: Nimesh Westfall on 08-15-2023 MCHC (RBC) [Mass/Vol] 33.0 g/dL 32.0-35.0 [facility] MCV [Entitic volume] by Auto mated countOrdered By: Nimesh Westfall on 08-15-2023 MCV (RBC) [Entitic vol] 94.5 fL Normal 80-100 [facility] Comment on above: Performed By: #### C BC, CMP, LIPASE #### [facility] [address] Monocyte distribution width [Entitic volume] in Blood by AutomatedOrdered By: Nimesh Westfall on 08-15-2023 Monocyte distribution width Auto (Bld) [Entitic vol] 16.42 % 0.00-20.00 [facility] Neutrophils [#/volume] in Bl ood by Automated countOrdered By: Nimesh Westfall on 08-15-2023 Neutrophils (Bld) [#/Vol] 2.1 10*3/uL Normal 1.8-7.7 [facility] Comment on above: Performed By: #### C BC, CMP, LIPASE #### [facility] [address] Nitrite Test strip Ql (U)Ord ered By: Nimesh Westfall on 08-15-2023 Nitrite Ql (U) Negative Negative [facility] No Panel InformationOrdered By: Nimesh Westfall on 08-15-2023 Estimated GFR (CKD-EPI) 47.997 mL/Min [facility] Creatinine Clearance (Chem 40.94 [facility] Nucleated erythrocytes [Pres ence] in Blood by Automated countOrdered By: Nimesh Westfall on 08-15-2023 Nucleated RBC Auto Ql (Bld) 0.1 /100{WBC} 0-0.5 [facility] Opiates [Presence] in Urine by Screen methodOrdered By: Nimesh Westfall on 08-15-2023 Opiates Screen Ql (U) Negative Negative [facility] Phencyclidine Screen Ql (U)O rdered By: Nimesh Westfall on 08-15-2023 Phencyclidine Ql (U) Negative Negative [facility] Platelet mean volume [Entiti c volume] in Blood by Automated countOrdered By: Nimesh Westfall on 08-15-2023 Platelet mean volume (Bld) [Entitic vol] 8.4 fL Normal 6.3-10.7 [facility] Comment on above: Performed By: #### C BC, CMP, LIPASE #### [facility] [address] [place] [address] [place] Platelets [#/volume] in Bloo d by Automated countOrdered By: Nimesh Westfall on 08-15-2023 Platelets (Bld) [#/Vol] 221 10*3/uL Normal 150-450 [facility] Comment on above: Performed By: #### C BC, CMP, LIPASE #### [address] Potassium [Moles/volume] in Serum or PlasmaOrdered By: Nimesh Westfall on 08-15-2023 Potassium [Moles/Vol] 4.1 mmol/L Normal 3.5-5.1 [facility] Comment on above: Performed By: #### C BC, CMP, LIPASE #### [address] Protein Auto test strip (U) [Mass/Vol]Ordered By: Nimesh Westfall on 08-15-2023 Protein (U) [Mass/Vol] Negative Negative [facility] Protein [Mass/volume] in Ser um or PlasmaOrdered By: Nimesh Westfall on 08-15-2023 Protein [Mass/Vol] 7.0 g/dL Normal 6.4-8.9 [facility] Comment on above: Performed By: #### C BC, CMP, LIPASE #### [address] Serum globulin measurement b y calculation (mass/volume)Ordered By: Nimesh Westfall on 08-15-2023 Globulin (S) [Mass/Vol] 2.5 g/dL Normal [facility] Comment on above: Performed By: #### C BC, CMP, LIPASE #### [address] Serum or plasma albumin/glob ulin mass ratioOrdered By: Nimesh Westfall on 08-15-2023 Albumin/Globulin [Mass ratio] 1.8 {ratio} Normal [facility] Comment on above: Performed By: #### C BC, CMP, LIPASE #### [address] Serum or plasma anion gap de terminationOrdered By: Nimesh Westfall on 08-15-2023 Anion gap [Moles/Vol] 11.8 mmol/L Normal 6.0-15.0 [facility] Comment on above: Performed By: #### C BC, CMP, LIPASE #### [facility] [address] [place] [address] [place] Sodium [Moles/volume] in Ser um or PlasmaOrdered By: Nimesh Westfall on 08-15-2023 Sodium [Moles/Vol] 142 mmol/L Normal 136-145 [facility] Comment on above: Performed By: #### C BC, CMP, LIPASE #### [facility] [address] Specific gravity Auto test s trip (U) [Rel density]Ordered By: Nimesh Westfall on 08-15-2023 Specific gravity (U) [Rel density] 1.005 1.001-1.03 0 [facility] Squamous epithelial cells de tection in urine sediment by light microscopyOrdered By: Nimesh Westfall on 08-15-2023 Epithelial cells.squamous LM Ql (Urine sed) None seen [HPF] 0-2 [facility] Urea nitrogen [Mass/volume] in Serum or PlasmaOrdered By: Nimesh Westfall on 08-15-2023 Urea nitrogen [Mass/Vol] 27 mg/dL High 7-25 [facility] Comment on above: Performed By: #### C BC, CMP, LIPASE #### [facility] [address] [place] [address] Urine bacteria detection by automated methodOrdered By: Nimesh Westfall on 08-15-2023 Bacteria Auto Ql (U) None seen None Seen [facility] Urine clarity by refractomet ry automatedOrdered By: Nimesh Westfall on 08-15-2023 Clarity Refractometry automated (U) Clear Clear [facility] Urine glucose measurement by automated test strip (mass/volume)Ordered By: Nimesh Westfall on 08-15-2023 Glucose Auto test strip (U) [Mass/Vol] Normal mg/dL Normal [facility] Urine hemoglobin detection b y automated test stripOrdered By: Nimesh Westfall on 08-15-2023 Hemoglobin Auto test strip Ql (U) Negative Negative [facility] Urine leukocyte esterase det ection by automated test stripOrdered By: Nimesh Westfall on 08-15-2023 Leukocyte esterase Auto test strip Ql (U) 3+ Negative [facility] Urine pH measurement by auto mated test stripOrdered By: Nimesh Westfall on 08-15-2023 pH (U) 7.0 [pH] Normal 5.0-9.0 [facility] Comment on above: Order Comment: Name Collection Type:: Clean-Voided Midstream Performed By: #### C UU, ADDONUAPLUS #### [facility] [address] Urobilinogen Auto test strip (U) [Mass/Vol]Ordered By: Nimesh Westfall on 08-15-2023 Urobilinogen (U) [Mass/Vol] Normal mg/dL Normal [facility] CNPNon 08-09-2023 CNPN Telephone (HNQ) -------- GAIL ALMEIDA ([id number]) 1955 F Date Time Provider Department 08/09/23 YANDEL DANIEL During your visit today, we recorded the following information about you: Nena Rodriguez 08/09/2023 9:45 AM Signed Person Calling: Margaux Diaz RN at [facility] Reason for Call: patient is going to need refills on levothyroxine and calcium carbonate. She was unsure if we would fill that request or her pcp Margaux: [phone] Pharmacy Name and # : [place] [address] - [address] [facility] - [phone] [address] [facility] [address] [place] [phone] Pt last seen: 06/28/2023 Radha Sewell RN 08/09/2023 4:29 PM Signed Called [facility] Transferred to [facility]. No answer phone continued ringing no voicemail available. Radha Brice RN 09/03/2023 8:00 AM Signed No return call for Reeherre. Closing encounter. Allergies As of Date: 08/09/2023 Noted Allergy Reaction ASPIRIN 04/11/2023 14 - Other: See Comments Comments: Shock BARBITUATES (BARBITURATES) 04/11/2023 16 - Unknown CODEINE 04/11/2023 16 - Unknown DEMEROL (MEPERIDINE) 04/11/2023 16 - Unknown FLUOXETINE 04/11/2023 16 - Unknown IBUPROFEN 04/11/2023 16 - Unknown PENICILLINS 04/11/2023 14 - Other: See Comments Comments: Turns blue SULFA (SULFONAMIDE ANTIBIOTICS) 04/11/2023 5 - Intolerance Comments: bad taste/odor Date Reviewed: 06/28/2023 Reviewed by: Fabienne Deleon OCCA - Fully Assessed Reason for Visit: Patient Question [1477] Prescriptions as of 09/03/2023 - calcium carbonate (OS-RL 500) 500 mg [...] mouth every 12 hours as needed. - bzwaox-hglwlbam-reirxha (ENZADYNE) 9,000-112,500- 112,500 unit capsule Take 1 capsule by mouth daily with food. - nystatin (MYCOSTATIN) cream Apply to affected area two times a day. - OLANZapine (ZYPREXA) 5 mg tablet Take 5 mg by mouth every 12 hours as needed. Problem List As Of Date 08/09/2023 Noted Resolved Asthma [J45.909] 06/18/2023 COPD (chronic obstructive pulmonary disease) (H*06/18/2023 HTN (hypertension) [I10] 06/18/2023 GERD (gastroesophageal reflux disease) [K21.9] 06/18/2023 Goiter [E04.9] 06/18/2023 Nontoxic multinodular goiter [E04.2] 06/20/2023 Elevated serum creatinine [R79.89] 06/21/2023 Stage 2 chronic kidney disease [N18.2] 06/21/2023 Encounter Status:Closed by RADHA BRICE on 09/03/23 Normal [facility] No Panel Informationon 07-16 Type of biopsy: [...] taken Amount of lidocaine used: 0.3 cc [facility] CNOVon 06-28-2023 CNOV Office Visit (OTOLMN ) -------- GAIL ALMEIDA ([id number]) 1955 F Date Time Provider Department 06/28/23 3:45 PM [facility] During your visit today, we recorded the following information about you: Fabienne Deleon OCCA 06/28/2023 3:36 PM Signed Tobacco Use: .25 packs/day, for 40 years. Types: Cigarettes Was smoking cessation packet given? Patient Declined Was a referral initiated?Patient declined. Yandel Daniel MD 06/28/2023 3:37 PM Signed [facility] Note CC: Post op of [...] by mouth every 12 hours as needed. ozwbnp-eyjkevec-iihmpks (ENZADYNE) 9,000-112,500- 112,500 unit capsule Take 1 [...] will continu (more content not included)... [facility] Telephone (HNQ) -------- GAIL ALMEIDA ([id number]) 1955 F Date Time Provider Department 06/24/23 YANDEL DANIEL During your visit today, we recorded the following information about you: Nena Rodriguez 06/24/2023 11:32 AM Signed Person Calling: Susannah - [facility] Reason for Call: Susannah called in to see if there is alternative product/brand for aqtwch-jtsfcwmo-gttgacc 9,000-112,500- 112,500 unit cap 1 capsule (ENZADYNE) that Dr. Daniel would be comfortable prescribing. The current one sent to the pharmacy, they do not have Pt Phone #: [phone] Pharmacy Name and # : [facility] [place] [address] - [address] [facility] [phone] Pt last seen: 06/18/2023 Amy Diaz, TAWANNA 06/24/2023 3:[address] Daniel does [...] taste/odor Date Reviewed: 06/22/2023 Reviewed by: Ravinder Mejias, RN - Fully Assessed Reason for Visit: [...] mouth every 12 hours as needed. - estvwb-tbihrevd-uiuywtu (ENZADYNE) 9,000-112,500- 112,500 unit capsule Take 1 [...] Encounter Status:Closed by AMY NG on 06/24/23 [facility] 06-22-2023 CNDS HNO ID: [id number] Author: YANDEL DANIEL MD Service: Otolaryngology Author [...] (surgical) FOLLOW-UP APPOINTMENTS ALREADY SCHEDULED WITH A [facility] PROVIDER: Future Appointments Date Time Provider Department Center 09/27/2023 9:45 AM Yandel Daniel MD OTOLMN [facility] ALLERGIES Allergen Reactions - Aspirin [...] nasal spray folic acid 800 mcg tablet obmglo-ubymvspm-zcrlsqo 9,000-112,500- 112,500 unit capsule Commonly known as: [...] mcg (200 unit) per tablet Generic drug: spzfbdf-zreucwnfs-uszkgb n D3 * QUEtiapine XR 400 mg [...] ROXICODONE Ta (more content not included)... Normal [facility] CONSULTon 06-21-2023 CONSULT HNO ID: [id number] Author: MARIAH FOWLER MD Service: Hospital Medicine [...] disorder On Topiramate 25mg daily Quetiapine 12.5/12.5/400 [place] 150mg BID Clonidine 0.1mg po daily Amantadine [...] as needed., Disp: , Rfl: , 06/17/2023 kxvyaz-mxhpinmi-kmfliae (ENZADYNE) 9,000-112,500- 112,500 unit capsule, Take 1 capsule by mouth daily with food., Disp: , Rfl: (more content not included)... Normal [facility] CYSTATIN Con 06-21-2023 Cystatin C [Mass/Vol] 1.84 mg/L High 0.61-0.95 [facility] Comment on above: Order Comment: Speci men Type: BLOOD SPECIMENOrdering Facility: [facility] Address: [address] [place] [address] Performed By: #### 2 4362-6, CYSTC ####[facility] LABCLIA [id number] [place] [address] [place] CYSTATIN C EGFR 31 mL/min/1.73m??? Low >=60 [facility] Comment on above: Order Comment: Speci men Type: BLOOD SPECIMENOrdering Facility: [facility] Address: [address] [place] [address] Result Comment: Leanna mated Glomerular Filtration Rate (eGFR) is calculated using the 2012 CKD-EPI cystatin C equation. This equation utilizes serum cystatin C, sex, and age as parameters. The cystatin C assay has traceable calibration to the ERM-DA471/[facility] reference material. Refer to KDIGO guidelines for clinical interpretation. In patients with unstable renal function, e.g. those with acute kidney injury, the eGFR may not accurately reflect actual GFR. Performed By: #### 2 4362-6, CYSTC ####[facility] LABIA [id number] [place] [address] [place] Calcium.ionized [Moles/Vol]o n 06-21-2023 Calcium.ionized (Bld) [Mass/Vol] 1.27 mmol/L Normal 1.08-1.30 [facility] Comment on above: Order Comment: Speci men Type: BLOOD SPECIMENOrdering Facility: [facility] Address: [address] [place] [address] Performed By: #### 1 995-0 ####[facility] LABIA [id number] [place] [address] [place] Calcium.ionized adjusted to pH 7.4 (Bld) [Moles/Vol] 1.29 mmol/L Normal 1.08-1.30 [facility] Comment on above: Order Comment: Speci men Type: BLOOD SPECIMENOrdering Facility: [facility] Address: [address] [place] [address] Performed By: #### 1 995-0 ####[facility] LABCLIA [id number] [place] [id number] [place] NURSING PROGon 06-21-2023 NURSING PROG HNO ID: [id number] Author: AKIKO LONG RN Service: ? Author Type: Registered Nurse Type: Nursing Progress Note Filed: 06/21/2023 12:54 Note Text: Other: [address] Daniel, pt concerned about getting a ride set up to go home today, nursing concerned that ENDO is consulted now, María says pt can go home and follow up as outpatient with Endocrinology, will page Dr Kody Terrell [facility] Renal function 2000 panelon 06-21-2023 Albumin [Mass/Vol] 4.1 g/dL Normal 3.9-4.9 [facility] Comment on above: Order Comment: Speci men Type: BLOOD SPECIMENOrdering Facility: [facility] Address: [address] [place] [address] Performed By: #### 2 4362-6, CYSTC ####[facility] LABCLIA [id number] [place] [address] [place] Anion gap [Moles/Vol] 13 mmol/L Normal 9-18 [facility] Comment on above: Order Comment: Speci men Type: BLOOD SPECIMENOrdering Facility: [facility] Address: [address] [place] [address] Performed By: #### 2 4362-6, CYSTC ####[facility] LABCLIA [id number] [place] [id number] [place] Calcium [Mass/Vol] 9.6 mg/dL Normal 8.5-10.2 [facility] Comment on above: Order Comment: Speci men Type: BLOOD SPECIMENOrdering Facility: [facility] Address: [address] [place] [address] Performed By: #### 2 4362-6, CYSTC ####[facility] LABCLIA [id number] [place] [address] [place] Chloride [Moles/Vol] 104 mmol/L Normal 97-105 [facility] Comment on above: Order Comment: Speci men Type: BLOOD SPECIMENOrdering Facility: [facility] Address: [address] [place] [address] Performed By: #### 2 4362-6, CYSTC ####[facility] LABCLIA [id number] [place] [address] [place] CO2 [Moles/Vol] 25 mmol/L Normal 22-30 [facility] Comment on above: Order Comment: Speci men Type: BLOOD SPECIMENOrdering Facility: [facility] Address: [address] [place] [address] Performed By: #### 2 4362-6, CYSTC ####[facility] LABCLIA [id number] [place] [address] [place] Creatinine [Mass/Vol] 1.20 mg/dL High 0.58-0.96 [facility] Comment on above: Order Comment: Speci men Type: BLOOD SPECIMENOrdering Facility: [facility] Address: [address] [place] [address] Performed By: #### 2 4362-6, CYSTC ####[facility] LABCLIA [id number] [place] [address] [place] Creatinine and Glomerular filtration rate.predicted panel (S/P/Bld) 50 mL/min/1.73m??? Low >=60 [facility] Comment on above: Order Comment: Speci men Type: BLOOD SPECIMENOrdering Facility: [facility] Address: [address] [place] [address] Result Comment: Leanna mated Glomerular Filtration Rate [...] GFR. Performed By: #### 2 4362-6, CYSTC ####[facility] LABCLIA [id number] [address] [address] [place] Glucose [Mass/Vol] 161 mg/dL High 74-99 [facility] Comment on above: Order Comment: Pio men Type: BLOOD SPECIMENOrdering Facility: [facility] Address: [address] [place] [address] Result Comment: The [place] Diabetes Association (ADA) provides guidance for cutoff [...] Standards of Medical Care in Diabetes 2016, [place] Diabetes Association. Diabetes Care. 2016.39(Suppl 1). Performed By: #### 2 4362-6, CYSTC ####[facility] LABCLIA [id number] [place] [id number] [place] Phosphate [Mass/Vol] 4.2 mg/dL Normal 2.7-4.8 [facility] Comment on above: Order Comment: Pio men Type: BLOOD SPECIMENOrdering Facility: [facility] Address: [address] [place] [address] Performed By: #### 2 4362-6, CYSTC ####[facility] LABCLIA [id number] [address] [address] [place] Potassium [Moles/Vol] 4.0 mmol/L Normal 3.7-5.1 [facility] Comment on above: Order Comment: Speci men Type: BLOOD SPECIMENOrdering Facility: [facility] Address: [address] [place] [address] Performed By: #### 2 4362-6, CYSTC ####[facility] LABCLIA [id number] [place] [address] [place] Sodium [Moles/Vol] 142 mmol/L Normal 136-144 [facility] Comment on above: Order Comment: Speci men Type: BLOOD SPECIMENOrdering Facility: [facility] Address: [address] [place] [address] Performed By: #### 2 4362-6, CYSTC ####[facility] LABCLIA [id number] [place] [address] [place] Urea nitrogen [Mass/Vol] 26 mg/dL High 7-21 [facility] Comment on above: Order Comment: Speci men Type: BLOOD SPECIMENOrdering Facility: [facility] Address: [address] [place] [address] Performed By: #### 2 4362-6, CYSTC ####[facility] LABCLIA [id number] [place] [address] [place] Urinalysis complete panel (U )on 06-21-2023 Bacteria LM.HPF (Urine sed) [#/Area] Negative Normal Negative [facility] Comment on above: Order Comment: Speci men Type: URINE SPECIMENOrdering Facility: [facility] Address: [address] [place] [address] Performed By: #### 2 4356-8 ####[facility] LABCLIA [id number] [place] [address] [place] Bilirubin Ql (U) Negative Normal Negative [facility] Comment on above: Order Comment: Speci men Type: URINE SPECIMENOrdering Facility: [facility] Address: [address] [place] [address] Performed By: #### 2 4356-8 ####[facility] LABCLIA [id number] [place] [address] [place] Clarity (Unsp spec) Clear Normal Clear [facility] Comment on above: Order Comment: Speci men Type: URINE SPECIMENOrdering Facility: [facility] Address: [address] [place] [address] Performed By: #### 2 4356-8 ####[facility] LABCLIA [id number] [place] [address] [place] Color (U) Yellow Normal Yellow [facility] Comment on above: Order Comment: Speci men Type: URINE SPECIMENOrdering Facility: [facility] Address: [address] [place] [address] Performed By: #### 2 4356-8 ####[facility] LABIA [id number] [place] [address] [place] Epithelial cells LM.HPF (Urine sed) [#/Area] Few Normal [facility] Comment on above: Order Comment: Speci men Type: URINE SPECIMENOrdering Facility: [facility] Address: [address] [place] [address] Performed By: #### 2 4356-8 ####[facility] LABIA [id number] [place] [address] [place] Glucose Test strip (U) [Mass/Vol] Negative Normal Negative [facility] Comment on above: Order Comment: Speci men Type: URINE SPECIMENOrdering Facility: [facility] Address: [address] [place] [address] Performed By: #### 2 4356-8 ####[facility] LABIA [id number] [place] [address] [place] Hemoglobin Ql (U) Negative Normal Negative [facility] Comment on above: Order Comment: Speci men Type: URINE SPECIMENOrdering Facility: [facility] Address: [address] [place] [address] Performed By: #### 2 4356-8 ####[facility] LABCLIA [id number] [place] [address] [place] Hyaline casts (Urine sed) [#/Area] 0 /[LPF] Normal 0 /LPF [facility] Comment on above: Order Comment: Speci men Type: URINE SPECIMENOrdering Facility: [facility] Address: [address] [place] [address] Performed By: #### 2 4356-8 ####[facility] LABCLIA [id number] [place] [address] [place] Ketones Ql (U) Negative Normal Negative [facility] Comment on above: Order Comment: Speci men Type: URINE SPECIMENOrdering Facility: [facility] Address: [address] [place] [address] Performed By: #### 2 4356-8 ####[facility] LABCLIA [id number] [place] [address] [place] Leukocyte esterase Test strip Ql (U) 1+ Abnormal Negative [facility] Comment on above: Order Comment: Speci men Type: URINE SPECIMENOrdering Facility: [facility] Address: [address] [place] [address] Performed By: #### 2 4356-8 ####[facility] LABCLIA [id number] [place] [address] [place] Nitrite Ql (U) Negative Normal Negative [facility] Comment on above: Order Comment: Speci men Type: URINE SPECIMENOrdering Facility: [facility] Address: [address] [place] [address] Performed By: #### 2 4356-8 ####[facility] LABCLIA [id number] [place] [address] [place] pH (U) 7.0 [pH] Normal <8.5 [facility] Comment on above: Order Comment: Speci men Type: URINE SPECIMENOrdering Facility: [facility] Address: [address] [place] [address] Performed By: #### 2 4356-8 ####[facility] LABIA [id number] [place] [address] [place] Protein (U) [Mass/Vol] Negative Normal Negative Cl [facility] Comment on above: Order Comment: Speci men Type: URINE SPECIMENOrdering Facility: [facility] Address: [address] [place] [address] Performed By: #### 2 4356-8 ####[facility] LABIA [id number] [place] [address] [place] RBC LM.HPF (Urine sed) [#/Area] 0-2 /HPF Normal 0-2 /HPF [facility] Comment on above: Order Comment: Speci men Type: URINE SPECIMENOrdering Facility: [facility] Address: [address] [place] [address] Performed By: #### 2 4356-8 ####[facility] [id number] [place] [address] [place] Specific gravity (U) [Rel density] 1.009 Normal 1.005-1.03 0 [facility] Comment on above: Order Comment: Speci men Type: URINE SPECIMENOrdering Facility: [facility] Address: [address] [place] [address] Performed By: #### 2 4356-8 ####[facility] LABIA [id number] [place] [address] [place] Urobilinogen Ql (U) 0.2 EU/dL Normal 0.2-1.0 EU/dL [facility] Comment on above: Order Comment: Speci men Type: URINE SPECIMENOrdering Facility: [facility] Address: [address] [place] [address] Performed By: #### 2 4356-8 ####[facility] LABIA [id number] [place] [id number] [place] WBC LM.HPF (Urine sed) [#/Area] 0-5 /HPF Normal 0-5 /HPF [facility] Comment on above: Order Comment: Speci men Type: URINE SPECIMENOrdering Facility: [facility] Address: [address] [place], [place] [address] Performed By: #### 2 4356-8 ####[facility] LABCLIA [id number] [place] [id number] [place] Basic metabolic 2000 panelon 06-20-2023 Anion gap [Moles/Vol] 10 mmol/L Normal -18 [facility] Comment on above: Order Comment: Speci men Type: BLOOD SPECIMENOrdering Facility: [facility] Address: [address] [place] [address] Performed By: #### 2 777-1, 273-8, , 74675-5 ####[facility] LABCLIA [id number] [place] [address] [place] Calcium [Mass/Vol] 10.8 mg/dL High 8.5-10.2 [facility] Comment on above: Order Comment: Speci men Type: BLOOD SPECIMENOrdering Facility: [facility] Address: [address] [place] [address] Performed By: #### 2 777-1, 273-8, , 55403-8 ####[facility] LABCLIA [id number] [place] [id number] [place] Chloride [Moles/Vol] 104 mmol/L Normal 97-105 [facility] Comment on above: Order Comment: Speci men Type: BLOOD SPECIMENOrdering Facility: [facility] Address: [address] [place] [address] Performed By: #### 2 777-1, 273-8, , 17719-3 ####[facility] LABCLIA [id number] [address] [address] [place] CO2 [Moles/Vol] 26 mmol/L Normal 22-30 [facility] Comment on above: Order Comment: Specruy espino Type: BLOOD SPECIMENOrdering Facility: [facility] Address: [address] [place] [address] Performed By: #### 2 777-1, 273-8, , 06511-0 ####[facility] LABCLIA [id number] [place] [address] [place] Creatinine [Mass/Vol] 1.27 mg/dL High 0.58-0.96 [facility] Comment on above: Order Comment: Speci men Type: BLOOD SPECIMENOrdering Facility: [facility] Address: [address] [place] [address] Performed By: #### 2 777-1, 2730-8, , 31095-0 ####[facility] LABIA [id number] [place] [address] [place] Creatinine and Glomerular filtration rate.predicted panel (S/P/Bld) 47 mL/min/1.73m??? Low >=60 [facility] Comment on above: Order Comment: Pio espino Type: BLOOD SPECIMENOrdering Facility: [facility] Address: [address] [place] [address] Result Comment: Leanna mated Glomerular Filtration Rate [...] reflect actual GFR. Performed By: #### 2 777-1, 273-8, , 35437-7 ####[facility] LABCLIA [id number] [place] [id number] [place] Glucose [Mass/Vol] 113 mg/dL High 74-99 [facility] Comment on above: Order Comment: Speci men Type: BLOOD SPECIMENOrdering Facility: [facility] Address: [address] [place] [address] Result Comment: The [place] Diabetes Association (ADA) provides guidance for cutoff [...] Standards of Medical Care in Diabetes 2016, [place] Diabetes Association. Diabetes Care. 2016.39(Suppl 1). Performed By: #### 2 777-1, 273-8, , 43935-0 ####[facility] LABCLIA [id number] [place] [address] [place] Potassium [Moles/Vol] 4.0 mmol/L Normal 3.7-5.1 [facility] Comment on above: Order Comment: Speci men Type: BLOOD SPECIMENOrdering Facility: [facility] Address: [address] [place] [address] Performed By: #### 2 777-1, 27306-10, , 97552-2 ####[facility] LABCLIA [id number] [place] [id number] [place] Sodium [Moles/Vol] 140 mmol/L Normal 136-144 [facility] Comment on above: Order Comment: Speci men Type: BLOOD SPECIMENOrdering Facility: [facility] Address: [address] [place] [address] Performed By: #### 2 777-1, 273-8, , 96697-9 ####[facility] LABCLIA [id number] [place] [address] [place] Urea nitrogen [Mass/Vol] 26 mg/dL High 7-21 [facility] Comment on above: Order Comment: Speci men Type: BLOOD SPECIMENOrdering Facility: [facility] Address: [address] [place] [address] Performed By: #### 2 777-1, 2731-8, 93022-7, 52412-0 ####[facility] LABCLIA [id number] [place] [address] [place] CBC panel Auto (Bld)on 06-20 Erythrocyte distribution width (RBC) [Ratio] 13.3 % Normal 11.5-15.0 [facility] Comment on above: Order Comment: Speci men Type: BLOOD SPECIMENOrdering Facility: [facility] Address: [address] [place] [address] Performed By: #### 2 731-8, 46466-9 ####[facility] LABCLIA [id number] [address] [place] Hematocrit (Bld) [Volume fraction] 42.6 % Normal 36.0-46.0 [facility] Comment on above: Order Comment: Speci men Type: BLOOD SPECIMENOrdering Facility: [facility] Address: [address] [place] [address] Performed By: #### 2 731-8, 82963-1 ####[facility] LABCLIA [id number] [place] [address] [place] Hemoglobin (Bld) [Mass/Vol] 14.0 g/dL Normal 11.5-15.5 [facility] Comment on above: Order Comment: Speci men Type: BLOOD SPECIMENOrdering Facility: [facility] Address: [address] [place] [address] Performed By: #### 2 731-8, 86170-1 ####[facility] LABCLIA [id number] [place] [address] [place] MCH (RBC) [Entitic mass] 31.7 pg Normal 26.0-34.0 [facility] Comment on above: Order Comment: Speci men Type: BLOOD SPECIMENOrdering Facility: [facility] Address: [address] [place] [address] Performed By: #### 2 731-8, 22953-5 ####[facility] LABCLIA [id number] [place] [address] [place] MCHC (RBC) [Mass/Vol] 32.9 g/dL Normal 30.5-36.0 [facility] Comment on above: Order Comment: Speci men Type: BLOOD SPECIMENOrdering Facility: [facility] Address: [address] [place] [address] Performed By: #### 2 731-8, 99176-4 ####[facility] LABCLIA [id number] [place] [address] [place] MCV (RBC) [Entitic vol] 96.4 fL Normal 80.0-100.0 [facility] Comment on above: Order Comment: Speci men Type: BLOOD SPECIMENOrdering Facility: [facility] Address: [address] [place] [address] Performed By: #### 2 731-8, 87211-3 ####[facility] LABCLIA [id number] [place] [address] [place] Nucleated RBC (Bld) [#/Vol] 10*3/uL Normal <0.01 [facility] Comment on above: Order Comment: Speci men Type: BLOOD SPECIMENOrdering Facility: [facility] Address: [address] [place] [address] Performed By: #### 2 731-8, 99760-4 ####[facility] LABCLIA [id number] [place] [address] [place] Platelet mean volume (Bld) [Entitic vol] 10.1 fL Normal 9.0-12.7 [facility] Comment on above: Order Comment: Speci men Type: BLOOD SPECIMENOrdering Facility: [facility] Address: [address] [place] [address] Performed By: #### 2 731-8, 59253-9 ####[facility] LABCLIA [id number] [place] [address] [place] Platelets (Bld) [#/Vol] 201 10*3/uL Normal 150-400 [facility] Comment on above: Order Comment: Speci men Type: BLOOD SPECIMENOrdering Facility: [facility] Address: [address] [place] [address] Performed By: #### 2 731-8, 92267-7 ####[facility] LABIA [id number] [place] [address] [place] RBC (Bld) [#/Vol] 4.42 10*6/uL Normal 3.90-5.20 [facility] Comment on above: Order Comment: Speci men Type: BLOOD SPECIMENOrdering Facility: [facility] Address: [address] [place] [address] Performed By: #### 2 731-8, 45264-3 ####[facility] LABIA [id number] [place] [address] [place] WBC (Bld) [#/Vol] 7.26 10*3/uL Normal 3.70-11.00 [facility] Comment on above: Order Comment: Speci men Type: BLOOD SPECIMENOrdering Facility: [facility] Address: [address] [place] [address] Performed By: #### 2 731-8, 46129-9 ####[facility] LABCLIA [id number] [place] [address] [place] Calcium.ionized [Moles/Vol]o n 06-20-2023 Calcium.ionized (Bld) [Mass/Vol] 1.37 mmol/L High 1.08-1.30 [facility] Comment on above: Order Comment: Speci men Type: BLOOD SPECIMENOrdering Facility: [facility] Address: [address] [place] [address] Performed By: #### 1 995-0 ####[facility] LABIA [id number] [place] [address] [place] Calcium.ionized adjusted to pH 7.4 (Bld) [Moles/Vol] 1.38 mmol/L High 1.08-1.30 [facility] Comment on above: Order Comment: Speci men Type: BLOOD SPECIMENOrdering Facility: [facility] Address: [address] [place] [address] Performed By: #### 1 995-0 ####[facility] [id number] [place] [address] [place] Calcium.ionized (Bld) [Mass/Vol] 1.38 mmol/L High 1.08-1.30 [facility] Comment on above: Order Comment: Speci men Type: BLOOD SPECIMENOrdering Facility: [facility] Address: [address] [place] [address] Performed By: #### 1 995-0 ####[facility] [id number] [place] [address] [place] Calcium.ionized adjusted to pH 7.4 (Bld) [Moles/Vol] 1.40 mmol/L High 1.08-1.30 [facility] Comment on above: Order Comment: Speci men Type: BLOOD SPECIMENOrdering Facility: [facility] Address: [address] [place] [address] Performed By: #### 1 995-0 ####[facility] LABIA [id number] [place] [address] [place] Magnesium SerPl-mCncon 06-20 Magnesium [Mass/Vol] 1.8 mg/dL Normal 1.7-2.3 [facility] Comment on above: Order Comment: Speci men Type: BLOOD SPECIMENOrdering Facility: [facility] Address: [address] [place] [address] Performed By: #### 2 777-1, 273-8, , 75198-0 ####[facility] LABCLIA [id number] [place] [address] [place] PTH-Intact SerPl-ncon 06-03 Parathyrin.intact [Mass/Vol] pg/mL Low 15-65 [facility] Comment on above: Order Comment: Speci men Type: BLOOD SPECIMENOrdering Facility: [facility] Address: [place] [place] [address] Performed By: #### 2 731-8, 60049-9 ####[facility] LABIA [id number] [address] [place] Result Comment: Resu lt rechecked. Performed By: #### 2 777-1, 2738, , 72913-5 ####[facility] LABCLIA [id number] [place] [address] [place] Phosphate SerPl-mCncon 06-20 Phosphate [Mass/Vol] 4.9 mg/dL High 2.7-4.8 [facility] Comment on above: Order Comment: Speci men Type: BLOOD SPECIMENOrdering Facility: [facility] Address: [place] [place] [address] Performed By: #### 2 777-1, 273-8, , 66674-9 ####[facility] LABIA [id number] [address] OF [place] CNPDayanara 06-19-2023 CNPN Telephone (HN) -------- ROBBIEGAIL MAN ([id number]) 1955 F Date Time Provider Department 06/19/23 YANDEL DANIEL During your visit today, we recorded the following information about you: Nena Rodriguez 06/19/2023 9:56 AM Signed Person Calling: Margaux - TAWANNA at [facility] Reason for Call: Margaux called wanting to check in on how the patient is doing after surgery. She also wanted to know if the patient was still planning on being discharged today Margaux: [phone] Pt last seen: 06/18/23 Nena Rodriguez Allergies [...] taste/odor Date Reviewed: 06/18/2023 Reviewed by: Jonathan Valencia RN - Fully Assessed Reason for Visit: Patient [...] mouth every 12 hours as needed. - frjrmp-ulvacggt-elenrcd (ENZADYNE) 9,000-112,500- 112,500 unit capsule Take 1 [...] (hypertension) [I10] (more content not included)... Normal [facility] Calcium.ionized [Moles/Vol]o n 06-19-2023 Calcium.ionized (Bld) [Mass/Vol] 1.43 mmol/L High 1.08-1.30 [facility] Comment on above: Order Comment: Speci men Type: BLOOD SPECIMENOrdering Facility: [facility] Address: [address] [place] [address] Performed By: #### 1 995-0 ####[facility] LABIA [id number] [place] [address] [place] Calcium.ionized adjusted to pH 7.4 (Bld) [Moles/Vol] 1.43 mmol/L High 1.08-1.30 [facility] Comment on above: Order Comment: Speci men Type: BLOOD SPECIMENOrdering Facility: [facility] Address: [address] [place] [address] Performed By: #### 1 995-0 ####[facility] [id number] [place] [address] [place] Calcium.ionized (Bld) [Mass/Vol] 1.37 mmol/L High 1.08-1.30 [facility] Comment on above: Order Comment: Speci men Type: BLOOD SPECIMENOrdering Facility: [facility] Address: [address] [place] [address] Performed By: #### 1 995-0 ####[facility] LABIA [id number] [place] [address] [place] Calcium.ionized adjusted to pH 7.4 (Bld) [Moles/Vol] 1.35 mmol/L High 1.08-1.30 [facility] Comment on above: Order Comment: Speci men Type: BLOOD SPECIMENOrdering Facility: [facility] Address: [address] [place] [address] Performed By: #### 1 995-0 ####[facility] LABIA [id number] [place] [address] [place] Calcium.ionized (Bld) [Mass/Vol] 1.28 mmol/L Normal 1.08-1.30 [facility] Comment on above: Order Comment: Speci men Type: BLOOD SPECIMENOrdering Facility: [facility] Address: [address] [place] [address] Performed By: #### 1 995-0 ####[facility] [id number] [place] [address] [place] Calcium.ionized adjusted to pH 7.4 (Bld) [Moles/Vol] 1.27 mmol/L Normal 1.08-1.30 [facility] Comment on above: Order Comment: Speci men Type: BLOOD SPECIMENOrdering Facility: [facility] Address: [address] [place] [address] Performed By: #### 1 995-0 ####[facility] [id number] [place] [address] [place] Calcium.ionized (Bld) [Mass/Vol] 1.27 mmol/L Normal 1.08-1.30 [facility] Comment on above: Order Comment: Speci men Type: BLOOD SPECIMENOrdering Facility: [facility] Address: [address] [place] [address] Performed By: #### 1 995-0 ####[facility] [id number] [place] [address] [place] Calcium.ionized adjusted to pH 7.4 (Bld) [Moles/Vol] 1.24 mmol/L Normal 1.08-1.30 [facility] Comment on above: Order Comment: Speci men Type: BLOOD SPECIMENOrdering Facility: [facility] Address: [address] [place] [address] Performed By: #### 1 995-0 ####[facility] [id number] [place] [address] [place] PTH-Intact SerPl-[facility] Parathyrin.intact [Mass/Vol] 6 pg/mL Low 15-65 [facility] Comment on above: Order Comment: Speci men Type: BLOOD SPECIMEN [facility] Address: [address] [place] [address] Performed By: #### 2 731-8 #### [facility] CLIA [id number] [address] [facility] [place] [address] [place] ANES POSTPROC EVALon 024 ANES POSTPROC EVAL HNO ID: [id number] Author: LU CAREY MD Service: ? Author Type: Anesthesiologist Type: Anesthesia Postprocedure Evaluation Filed: 06/18/2023 18:05 Note Text: POST ANESTHESIA EVALUATION NOTE : 1955 Procedure Summary Date: 06/18/23 Room / Location: [address] [facility] Anesthesia Start: 1159 Anesthesia Stop: 1555 Procedure: [...] June 18, 2023 TIME: 6:05 PM CSN: [id number] Normal [facility] ANES PRE-OPon 06-18-2023 ANES PRE-OP HNO ID: [id number] Author: JANETH VARGAS DO Service: ? Author Type: Physician Type: Anesthesia Preprocedure Evaluation Filed: 06/18/2023 12:51 Note Text: ANESTHESIOLOGY DAY OF SURGERY NOTE : 1955 Procedure Information Date/Time: 06/18/23 1045 Procedure: THYROIDECTOMY TOTAL (Thyroid) Location: MAIN [address] [place]IN [place] Surgeons: Yandel Daniel MD Estimated body mass [...] June 18, 2023 TIME: 9:48 AM CSN: [id number] Normal [facility] BRIEF OP NOTon 06-18-2023 BRIEF OP NOT HNO ID: [id number] Author: DAKOTA SMITH MD Service: Otolaryngology Author Type: Resident Type: Brief Op Note Filed: 06/18/2023 15:30 Note Text: BRIEF OPERATIVE NOTE Otorhinolaryngology LOG ID: [id number] Surgery / Procedure Date: 06/18/2023 Incision / Procedure Start Time: 12:35 PM Incision Close / Procedure End Time: 3:17 PM Procedure(s): Procedure(s) and Anesthesia Type: * THYROIDECTOMY TOTAL - General Total thyroidectomy with removal of substernal goiter Parathyroid autoimplantation into SCM x2 CROW-AF parathyroid detection Surgeon(s) / Proceduralist(s) and Publications Designer(s): Surgeon(s) and Role: * Yandel Daniel MD [...] 3:29 PM Click to page Please page [phone] after 5pm and on weekends Normal [facility] CONSULT PROGon 06-18-2023 CONSULT PROG HNO ID: [id number] Author: LYDIA MACK [facility] Service: Pharmacy Author Type: Pharmacist Type: Consult [...] DAILY Question: Pharmacist may modify dose per [facility] dose optimization consult agreement Answer: Yes 06/18/23 19106/18/23 1600 ceFAZolin iv piggyback 2 g in D5W (iso-osmotic) 100 mL (ANCEF) EVERY 8 HOURS Question Answer Comment Antimicrobial indication Prophylaxis Pharmacist may modify dose per [facility] dose optimization consult agreement Yes 06/18/23 7191 For medications which dose is dependent on renal function, a pharmacist will monitor renal function daily and adjust doses accordingly. Any dose adjustments needed based on changes in indication will require an LIP to enter a new order. Managing Pharmacist: Lydia Mack RPh, available at: Ext [phone] If you have any questions, please contact Pharmacy at Ext [phone]. CrCl cannot be calculated (Patient's most recent [...] RPh June 18, 2023 7:31 PM Normal [facility] Calcium.ionized [Moles/Vol]o n 06-18-2023 Calcium.ionized (Bld) [Mass/Vol] 1.40 mmol/L High 1.08-1.30 [facility] Comment on above: Order Comment: Speci men Type: BLOOD SPECIMEN [facility] Address: [address] [place] [address] Performed By: #### 1 995-0 #### [facility] CLIA [id number] [address] [facility] [place] [address] [place] Calcium.ionized adjusted to pH 7.4 (Bld) [Moles/Vol] 1.30 mmol/L Normal 1.08-1.30 [facility] Comment on above: Order Comment: Speci men Type: BLOOD SPECIMEN [facility] Address: [address] [place], [place] [address] Performed By: #### 1 995-0 #### [facility] CLIA [id number] [address] [place] [address] OF [facility] NURSING PROGon 06-18-2023 NURSING PROG HNO ID: [id number] Author: ALETHEA OLIVEROS RN Service: Nursing Author Type: Registered Nurse Type: Nursing Progress Note Filed: 06/18/2023 19:22 Note Text: Pt takes [place] at nite. 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 Awaiting orders. Continue to monitor Normal [facility] NURSING PROG HNO ID: [id number] Author: ALETHEA OLIVEROS RN Service: Nursing Author [...] note was completed by: Alethea Oliveros Normal [facility] OPERATIVE NOon 06-18-2023 OPERATIVE NO HNO ID: [id number] Author: YANDEL DANIEL MD Service: Otolaryngology Author Type: Physician Type: Operative Report Filed: 06/19/2023 14:16 Note Text: [facility] [place] [phone] or [phone] [facility] E N T I A L I N F O R M A T I O N -------- OPERATIVE REPORT Patient Name: Gail Almeida Date of : 1955 Log ID: [id number] Date: 06/18/2023 Surgeon:Yandel Daniel MD Resident Surgeon(s): [...] permanent pathology. (more content not included)... Normal [facility] SURGICAL PATHOLOGYon 024 CASE REPORT Normal [facility] Comment on above: Order Comment: Christianoi srinivas Type: BLOOD SPECIMEN [facility] Address: [address] [place] [address] Result Comment: Surg ica Pathology Report Case: [id number] Authorizing Provider: Yandel Daniel MD Collected: 06/18/2023 01:50 PM Ordering Location: Admitting Received: 06/18/2023 02:57 PM Pathologist: Iliana Marti MD Specimens: A) - THYROID LOBE LEFT, Left substernal goiter B) - THYROID LOBE RIGHT, Right substernal goiter Performed By: #### 2 731-8 #### [facility] CLIA [id number] [address] [place] [address] OF [facility] CLINICAL HISTORY Normal [facility] Comment on above: Order Comment: Pio espino Type: BLOOD SPECIMEN [facility] Address: [address] [place] [address] Result Comment: 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 Normal [facility] Comment on above: Order Comment: Pio espino Type: BLOOD SPECIMEN [facility] Address: [address] [place] [address] Performed By: #### 2 731-8 #### [facility] CLIA [id number] [facility] [address] OF [facility] FINAL DIAGNOSIS Normal [facility] Comment on above: Order Comment: Pio espino Type: BLOOD SPECIMEN [facility] Address: [address] [place] [address] Result Comment: A,B. 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 - No parathyroid glands or lymph nodes were identified. - Negative for malignancy. Performed By: #### 2 731-8 #### [facility] CLIA [id number] [address] [place] [address] [place] FINAL PERFORMING LAB Normal [facility] Comment on above: Order Comment: Speci men Type: BLOOD SPECIMEN [facility] Address: [address] [place] [address] Result Comment: Diag nostic interpretation performed at [facility], [address] [place] [address] CLIA# [id number] Licensed Funeral Director: Adonis Dukes M.D. Performed By: #### 2 731-8 #### [facility] CLIA [id number] [address] [place] [address] GROSS DESCRIPTION Normal [facility] Comment on above: Order Comment: Speci men Type: BLOOD SPECIMEN [facility] Address: [address] [place] [address] Result Comment: A. T HYROID LOBE LEFT Labeled: Thyroid lobe left Specimen received: Formalin Specimen type: Total thyroidectomy without attached skeletal muscle, lymph nodes, AND / OR large vessels Oriented: No Weight: 154.35 g Size: 11.5 x 8.2 x 4.1 cm Left lobe: 8.2 7.2 x 4.1 cm Isthmus: 5.5 x 2.5 x 1.9 cm Ink code: Blue- External surface [place] - Isthmus Sectioning: The specimen is serially sectioned from superior to inferior. Number of discrete nodules: 0 Background thyroid parenchyma: Multicystic, fleshy containing hemorrhagic fluid with areas of calcification. Attached skeletal muscle: Not identified Attached lymph nodes: Not identified Attached parathyroid: Not identified Gross photograph: Yes Cassette Code: A1-A2: Grooving Machine Operator sections from left thyroid lobe A3: Grooving Machine Operator section of the isthmus Gross examination performed at [facility], [address] [place] [address] CLIA # [id number] 06/19/23 1:55 PM B. THYROID LOBE RIGHT Labeled: Thyroid lobe Right Specimen received: Formalin Specimen type: Total thyroidectomy without attached skeletal muscle, lymph nodes, AND / OR large vessels Oriented: No Weight: 75.2 g Size: Right lobe: 9.5 x 4.5 x 3.1 cm Ink code: Black- External surface [place] - Isthmus resection margin Sectioning: The specimen is serially sectioned from superior to inferior. Number of discrete nodules: 0 Background thyroid parenchyma: Multicystic, fleshy containing hemorrhagic fluid. Attached skeletal muscle: Not identified Attached lymph nodes: Not identified Attached parathyroid: Not identified Gross photograph: Yes Cassette Code: B1-B2: Grooving Machine Operator sections of the right thyroid lobe Gross examination performed at [facility], [address] [place] [address] CLIA # [id number] 06/19/23 1:55 PM Performed By: #### 2 731-8 #### [facility] CLIA [id number] [address] [place] [address] [place] [address] [place] Basic metabolic 2000 panelon 05-30-2023 Anion gap [Moles/Vol] 10 mmol/L Normal 9-18 [facility] Comment on above: Order Comment: Speci men Type: BLOOD SPECIMEN [facility] Facility: [facility] Address: [address] [place] [address] Performed By: #### 2 4321-2 #### [facility] CLIA [id number] [address] [place] [address] [place] Calcium [Mass/Vol] 8.9 mg/dL Normal 8.5-10.2 [facility] Comment on above: Order Comment: Speci men Type: BLOOD SPECIMEN Ordering Facility: [facility] Address: [address] [place] [address] Performed By: #### 2 4321-2 #### [facility] CLIA [id number] [address] [place] [address] [place] Chloride [Moles/Vol] 105 mmol/L Normal 97-105 [facility] Comment on above: Order Comment: Speci men Type: BLOOD SPECIMEN [facility] Facility: [facility] Address: [address] [place] [address] Performed By: #### 2 4321-2 #### [facility] CLIA [id number] [address] [place] [address] [place] CO2 [Moles/Vol] 21 mmol/L Low 22-30 [facility] Comment on above: Order Comment: Speci men Type: BLOOD SPECIMEN Order[facility] Facility[facility] Address: [address] [place] [address] Performed By: #### 2 4321-2 #### [facility] CLIA [id number] [address] [place], [place] [address] [place] [address] [place] Creatinine [Mass/Vol] 1.03 mg/dL High 0.58-0.96 [facility] Comment on above: Order Comment: Speci men Type: BLOOD SPECIMEN [facility] Facility: [facility] Address: [address] [place] [address] Performed By: #### 2 4321-2 #### [facility] [place] [id number] [address] [place] Creatinine and Glomerular filtration rate.predicted panel (S/P/Bld) 60 mL/min/1.73m??? Normal >=60 [facility] Comment on above: Order Comment: Speci men Type: BLOOD SPECIMEN [facility]: [facility] Address: [address] [place] [address] Result Comment: Leanna mated Glomerular Filtration Rate [...] GFR. Performed By: #### 2 4321-2 #### [facility] CLIA [id number] [place] Glucose [Mass/Vol] 96 mg/dL Normal 74-99 [facility] Comment on above: Order Comment: Speci men Type: BLOOD SPECIMEN Ordering Facility: [facility] Address: [address] [place] [address] Result Comment: The [place] Diabetes Association (ADA) provides guidance for cutoff [...] Standards of Medical Care in Diabetes 2016, [place] Diabetes Association. Diabetes Care. 2016.39(Suppl 1). Performed By: #### 2 4321-2 #### [facility] CLIA [id number] [address] [place] [address] [place] Potassium [Moles/Vol] 4.6 mmol/L Normal 3.7-5.1 [facility] Comment on above: Order Comment: Speci men Type: BLOOD SPECIMEN Ordering Facility: [facility] Address: [address] [place] [address] Performed By: #### 2 4321-2 #### [facility] CLIA [id number] [address] [place] [address] [place] Sodium [Moles/Vol] 136 mmol/L Normal 136-144 [facility] Comment on above: Order Comment: Speci men Type: BLOOD SPECIMEN Ordering Facility: [facility] Address: [address] [place] [address] Performed By: #### 2 4321-2 #### [facility] CLIA [id number] [address] [place] [address] [place] Urea nitrogen [Mass/Vol] 28 mg/dL High 7-21 [facility] Comment on above: Order Comment: Speci men Type: BLOOD SPECIMEN Ordering Facility: [facility] Address: [address] [place] [address] Performed By: #### 2 4321-2 #### [facility] CLIA [id number] [place] CBC panel Auto (Bld)on 05-30 Erythrocyte distribution width (RBC) [Ratio] 13.0 % Normal 11.5-15.0 [facility] Comment on above: Order Comment: Speci men Type: BLOOD SPECIMEN Ordering Facility: [facility] Address: [address] [place] [address] Performed By: #### 5 8410-2 #### [facility] CLIA [id number] Hematocrit (Bld) [Volume fraction] 38.6 % Normal 36.0-46.0 [facility] Comment on above: Order Comment: Speci men Type: BLOOD SPECIMEN Ordering Facility: [facility] Address: [address] [place] [address] Performed By: #### 5 8410-2 #### [facility] CLIA [id number] [place] [address] Hemoglobin (Bld) [Mass/Vol] 12.2 g/dL Normal 11.5-15.5 [facility] Comment on above: Order Comment: Speci men Type: BLOOD SPECIMEN Ordering Facility: [facility] Address: [address] [place] [address] Performed By: #### 5 8410-2 #### [facility] CLIA [id number] OF [place] MCH (RBC) [Entitic mass] 31.3 pg Normal 26.0-34.0 [facility] Comment on above: Order Comment: Speci men Type: BLOOD SPECIMEN Ordering Facility: [facility] Address: [address] [place] [address] Performed By: #### 5 8410-2 #### [facility] CLIA [id number] [address] [place] MCHC (RBC) [Mass/Vol] 31.6 g/dL Normal 30.5-36.0 [facility] Comment on above: Order Comment: Speci men Type: BLOOD SPECIMEN Ordering Facility: [facility] Address: [address] [place] [address] Performed By: #### 5 8410-2 #### [facility] [place] [id number] [address] [place] [address] [place] MCV (RBC) [Entitic vol] 99.0 fL Normal 80.0-100.0 [facility] Comment on above: Order Comment: Speci men Type: BLOOD SPECIMEN Ordering Facility: [facility] Address: [address] [place] [address] Performed By: #### 5 8410-2 #### [facility] [place] [id number] [address] [place] [address] [place] Nucleated RBC (Bld) [#/Vol] 10*3/uL Normal <0.01 [facility] Comment on above: Order Comment: Speci men Type: BLOOD SPECIMEN Ordering Facility: [facility] Address: [address] [place] [address] Performed By: #### 5 8410-2 #### [facility] [place] [id number] [address] [place] [address] [place] Platelet mean volume (Bld) [Entitic vol] 9.9 fL Normal 9.0-12.7 [facility] Comment on above: Order Comment: Speci men Type: BLOOD SPECIMEN Ordering Facility: [facility] Address: [address] [place] [address] Performed By: #### 5 8410-2 #### [facility] [place] [id number] [address] [place] [address] [place] Platelets (Bld) [#/Vol] 254 10*3/uL Normal 150-400 [facility] Comment on above: Order Comment: Speci men Type: BLOOD SPECIMEN Ordering Facility: [facility] Address: [address] [place] [address] Performed By: #### 5 8410-2 #### [facility] IA [id number] [address] [place] [address] [place] RBC (Bld) [#/Vol] 3.90 10*6/uL Normal 3.90-5.20 [facility] Comment on above: Order Comment: Speci men Type: BLOOD SPECIMEN Ordering Facility: [facility] Address: [place] [address] Performed By: #### 5 8410-2 #### [facility] CLIA [id number] [address] [facility] [place] [place] [address] [place] WBC (Bld) [#/Vol] 5.78 10*3/uL Normal 3.70-11.00 [facility] Comment on above: Order Comment: Speci men Type: BLOOD SPECIMEN Ordering Facility: [facility] Address: [address] [place] [address] Performed By: #### 5 8410-2 #### [facility] CLIA [id number] [address] [facility] [place] [place] [address] [facility] CNOVon 05-30-2023 CNOV Office Visit (OTOLMN ) -------- GAIL ALMEIDA ([id number]) 1955 F Date Time Provider Department 05/30/23 1:00 PM YANDEL DANIEL OTOLMN During your visit today, we recorded the [...] by mouth every 12 hours as needed. tzqkyz-xdxlnztm-adubdaf (ENZADYNE) 9,000-112,500- 112,500 unit capsule Take 1 [...] mass ASSES (more content not included)... Normal [facility] CT NECK SOFT TISSUE W IVCONo n 05-30-2023 CT NECK SOFT TISSUE W IVCON * * *Final Report* * * DATE OF EXAM: May 30 2023 10:30AM [facility] - [facility] NECK SOFT TISSUE [...] is no lymphadenopathy or soft tissue mass [place] Needle Loom (topogram) images: No additional findings. IMPRESSION: LARGE GOITER DETAILED Staffing Assistant: MAVERICK Transcribe Date/Time: May 30 2023 11:42A Dictated by : JOBY VILLAFUERTE MD This examination was interpreted and the report reviewed and electronically signed by: JOBY VILLAFUERTE MD on May 30 2023 11:47AM EST [id number] Normal [facility] HISTORY PHYSICALon 12-28-202 3 HISTORY PHYSICAL HNO ID: [id number] Author: Kristen Avalos PA-C Service: ? Author Type: Physician Publications Designer Type: HANDP Filed: 06/04/2023 1:48 PM Note [...] block. States she follows with cardiology in [place], [place], but patient poor historian so unable [...] Yes topiramate (more content not included)... Normal [facility] HbA1c (Bld)on 05-30-2023 Average glucose Estimated from glycated hemoglobin (Bld) [Mass/Vol] 100 mg/dL Normal [facility] Comment on above: Order Comment: Pio espino Type: BLOOD SPECIMEN Ordering Facility: [facility] Address: [address] [place] [address] Result Comment: eAG: (Estimated average glucose) is a calculated value from HgbA1c and is telesales representative of the average blood glucose level in the last 2-3 month period. Performed By: #### 5 5454-3 #### [facility] CLIA [id number] [address] [place] [address] [place] HbA1c (Bld) [Mass fraction] 5.1 % Normal 4.3-5.6 [facility] Comment on above: Order Comment: Pio espino Type: BLOOD SPECIMEN Ordering Facility: [facility] Address: [address] [place] [address] Result Comment: [place] Diabetes Association guidelines indicate that patients with HgbA1c in the range 5.7-6.4% are at increased risk for development of diabetes, and intervention by lifestyle modification may be beneficial. HgbA1c greater or equal to 6.5% is considered diagnostic of diabetes. Performed By: #### 5 5454-3 #### [facility] CLIA [id number] [address] [place] [address] OF [place] NURSING PROGon 05-30-2023 NURSING PROG HNO ID: [id number] Author: Rody Sher RN Service: Nursing Author [...] DATE: May 30, 2023 TIME: 10:13 AM [facility] 04-11-2023 CNOV Office Visit (IMANI ) -------- GAIL ALMEIDA ([id number]) 1955 F Date Time Provider Department 04/11/23 [...] details please see patient questionnaire scanned into [employer]. History: No past medical history on file. [...] refer to the patient questionnaire scanned into [employer]. Physical Exam: Vitals - There were no [...] on file for this patient. Ms. Gail Blackburn Estuardo is a 67 year old female who presents with thyroid goiter in the context of long-standing lithium use for management of psychiatric disorders. Patient bennie (more content not included)... [facility] -------- GAIL ALMEIDA ([id number]) 1955 F Date Time Provider Department 04/11/23 [...] mouth every 12 hours as needed. - xsqvfr-ietgbtdk-nkhktng (ENZADYNE) 9,000-112,500- 112,500 unit capsule Take 1 capsule by mouth daily with food. - nystatin (MYCOSTATIN) cream Apply to affected area two times a day. - OLANZapine (ZYPREXA) 5 mg tablet Take 5 mg by mouth every 12 hours as needed. Problem List As Of Date: 04/11/2023 (None) Encounter Status:Closed by RADHA BRICE on 04/11/23 Normal [facility] Automated basophil %Ordered By: Mariana Pryor on 03-27-2023 Basophils/100 WBC (Bld) 0.6 % Normal . [facility] Comment on above: Performed By: #### C UU, ADDWALESKAUAPLUS #### [address] Automated basophil countOrde red By: Mariana Pryor on 03-27-2023 Basophils (Bld) [#/Vol] 0.0 10*3/uL Normal 0.0-0.2 [facility] Comment on above: Result Comment: PERF ORMED BY: [place] [address] PATHOLOGIST RAW STOCK MACHINE LOADER GATO PEÑA M.D. Performed By: #### C UU, ADDONUAPLUS #### [address] Automated blood monocyte cou ntOrdered By: Mariana Pryor on 03-27-2023 Monocytes (Bld) [#/Vol] 0.6 10*3/uL Normal 0.0-0.8 [facility] Comment on above: Performed By: #### C UU, ADDONUAPLUS #### [address] Automated eosinophil %Ordere d By: Mariana Pryor on 03-27-2023 Eosinophils/100 WBC (Bld) 0.4 % Normal . [facility] Comment on above: Performed By: #### C UU, ADDONUAPLUS #### [address] Automated eosinophil countOr dered By: Mariana Pryor on 03-27-2023 Eosinophils (Bld) [#/Vol] 0.0 10*3/uL Normal 0.0-0.45 [facility] Comment on above: Performed By: #### C UU, ADDONUAPLUS #### [address] Automated monocyte %Ordered By: Mariana Pryor on 03-27-2023 Monocytes/100 WBC (Bld) 8.3 % Normal . [facility] Comment on above: Performed By: #### C UU, ADDONUAPLUS #### [address] Automated neutrophil %Ordere d By: Mariana Pryor on 03-27-2023 Neutrophils/100 WBC (Bld) 75.8 % Normal . [facility] Comment on above: Performed By: #### C UU, ADDONUAPLUS #### [address] Basic Metabolic Panelon 03-04 Creatinine Clr Calc Pharmacy 51.73 Normal [facility] Comment on above: Result Comment: PERF ORMED BY: [place] [address] PATHOLOGIST RAW STOCK MACHINE LOADER GATO PEÑA M.D. Performed By: #### C UU, ADDONUAPLUS #### [address] GFR/1.73 sq M.predicted MDRD (S/P/Bld) [Vol rate/Area] mL/min/{1.73_m2} Normal [facility] Comment on above: Performed By: #### C UU, ADDONUAPLUS #### [address] Calcium [Mass/volume] in Ser um or PlasmaOrdered By: Mariana Pryor on 03-27-2023 Calcium [Mass/Vol] 9.5 mg/dL Normal 8.6-10.3 [facility] Comment on above: Performed By: #### C UU, ADDONUAPLUS #### [facility] [address] [place] [address] [place] Carbon dioxide, total [Moles /volume] in Serum or PlasmaOrdered By: Mariana Pryor on 03-27-2023 CO2 [Moles/Vol] 19.3 mmol/L Low 21.0-31.0 [facility] Comment on above: Performed By: #### C UU, ADDONUAPLUS #### [place] [address] [place] Chloride [Moles/volume] in S kishan or PlasmaOrdered By: Mariana Pryor on 03-27-2023 Chloride [Moles/Vol] 115 mmol/L High 98-107 [facility] Comment on above: Performed By: #### C UU, ADDONUAPLUS #### [facility] [address] [place] [address] Complete Blood Count Auto Di ffon 03-27-2023 Mean Corpuscular HGB Conc 33.6 g/dL Normal 32.0-35.0 [facility] Comment on above: Performed By: #### C UU, ADDONUAPLUS #### [address] NRBC% 0.0 /100{WBC} Normal 0-0.5 [facility] Comment on above: Performed By: #### C UU, ADDONUAPLUS #### [address] Creatinine [Mass/volume] in Serum or PlasmaOrdered By: Mariana Pryor on 03-27-2023 Creatinine [Mass/Vol] 0.96 mg/dL Normal 0.60-1.20 [facility] Comment on above: Performed By: #### C UU, ADDONUAPLUS #### [address] Erythrocyte distribution wid th [Ratio] by Automated countOrdered By: Mariana Pryor on 03-27-2023 Erythrocyte distribution width (RBC) [Ratio] 13.2 % Normal 11.9-15.3 [facility] Comment on above: Performed By: #### C UU, ADDONUAPLUS #### [facility] [address] [place] [address] Erythrocytes [#/volume] in B lood by Automated countOrdered By: Mariana Guillaume on 03-27-2023 RBC (Bld) [#/Vol] 3.54 10*6/uL Low 3.60-5.00 [facility] Comment on above: Performed By: #### C UU, ADDONUAPLUS #### [address] Glucose [Mass/volume] in Ser um or PlasmaOrdered By: Mariana Pryor on 03-27-2023 Glucose [Mass/Vol] 110 mg/dL High 70-100 [facility] Comment on above: ADA recommended refe rence rangeRandom Glucose Reference Range is dependent on time and content of last meal. Glucose of more than 200 mg/dL in a nonstressed, ambulatory subject supports the diagnosis of Diabetes Mellitus. Result Comment: [place] [facility] Glucose Reference Range is dependent on time and content of last meal. Glucose of more than 200 mg/dL in a nonstressed, ambulatory subject supports the diagnosis of Diabetes Mellitus. ADA recommended reference range Performed By: #### C UU, ADDONUAPLUS #### [facility] [address] [place] [address] Hematocrit [Volume Fraction] of Blood by Automated countOrdered By: Mariana Pryor on 03-27-2023 Hematocrit (Bld) [Volume fraction] 34.1 % Normal 34.0-46.4 [facility] Comment on above: Performed By: #### C UU, ADDONUAPLUS #### [address] Hemoglobin [Mass/volume] in BloodOrdered By: Mariana Pryor on 03-27-2023 Hemoglobin (Bld) [Mass/Vol] 11.5 g/dL Low 11.8-15.4 [facility] Comment on above: Performed By: #### C UU, ADDONUAPLUS #### [facility] [address] [place] [address] Leukocytes [#/volume] correc cornelia for nucleated erythrocytes in Blood by Automated counOrdered By: Mariana Pryor on 03-27-2023 WBC corrected for nucl RBC Auto (Bld) [#/Vol] 7.7 10*3/uL 3.8-11.6 [facility] Leukocytes [#/volume] in Blo od by Automated countOrdered By: Mariana Guillaume on 03-27-2023 WBC (Bld) [#/Vol] 7.7 10*3/uL Normal 3.8-11.6 [facility] Comment on above: Performed By: #### C UU, ADDONUAPLUS #### [address] Lymphocytes [#/volume] in Bl ood by Automated countOrdered By: Mariana Guillaume on 03-27-2023 Lymphocytes (Bld) [#/Vol] 1.2 10*3/uL Normal 1.00-4.8 [facility] Comment on above: Performed By: #### C UU, ADDONUAPLUS #### [address] Lymphocytes/100 leukocytes i n Blood by Automated countOrdered By: Mariana Pryor on 03-27-2023 Lymphocytes/100 WBC (Bld) 14.9 % Normal . [facility] Comment on above: Performed By: #### C UU, ADDONUAPLUS #### [address] MCH [Entitic mass] by Automa cornelia countOrdered By: Mariana Pryor on 03-27-2023 MCH (RBC) [Entitic mass] 32.3 pg Normal 24.7-34.3 [facility] Comment on above: Performed By: #### C UU, ADDONUAPLUS #### [address] MCHC Auto (RBC) [Mass/Vol]Or dered By: Mariana Pryor on 03-27-2023 MCHC (RBC) [Mass/Vol] 33.6 g/dL 32.0-35.0 [facility] MCV [Entitic volume] by Auto mated countOrdered By: Mariana Pryor on 03-27-2023 MCV (RBC) [Entitic vol] 96.4 fL Normal 80-100 [facility] Comment on above: Performed By: #### C UU, ADDONUAPLUS #### [address] Neutrophils [#/volume] in Bl ood by Automated countOrdered By: Mariana Guillaume on 03-27-2023 Neutrophils (Bld) [#/Vol] 5.9 10*3/uL Normal 1.8-7.7 [facility] Comment on above: Performed By: #### C UU, ADDONUAPLUS #### [facility] [address] [place] [address] No Panel InformationOrdered By: Mariana Pryor on 03-27-2023 Estimated GFR (CKD-EPI) > 60.0 mL/Min [facility] Creatinine Clearance (Chem 51.73 [facility] Nucleated erythrocytes [Pres ence] in Blood by Automated countOrdered By: Mariana Pryor on 03-27-2023 Nucleated RBC Auto Ql (Bld) 0.0 /100{WBC} 0-0.5 [facility] Platelet mean volume [Entiti c volume] in Blood by Automated countOrdered By: Mariana Pryor on 03-27-2023 Platelet mean volume (Bld) [Entitic vol] 8.5 fL Normal 6.3-10.7 [facility] Comment on above: Performed By: #### C UU, ADDONUAPLUS #### [facility] [address] [place] [address] Platelets [#/volume] in Bloo d by Automated countOrdered By: Mariana Pryor on 03-27-2023 Platelets (Bld) [#/Vol] 201 10*3/uL Normal 150-450 [facility] Comment on above: Performed By: #### C UU, ADDONUAPLUS #### [facility] [address] [place] [address] Potassium [Moles/volume] in Serum or PlasmaOrdered By: Mariana Pryor on 03-27-2023 Potassium [Moles/Vol] 4.0 mmol/L Normal 3.5-5.1 [facility] Comment on above: Performed By: #### C UU, ADDONUAPLUS #### [facility] [address] [place] [address] Serum or plasma anion gap de terminationOrdered By: Mariana Pryor on 03-27-2023 Anion gap [Moles/Vol] 11.7 mmol/L Normal 6.0-15.0 [facility] Comment on above: Performed By: #### C UU, ADDONUAPLUS #### [place] [address] [place] Sodium [Moles/volume] in Ser um or PlasmaOrdered By: Mariana Pryor on 03-27-2023 Sodium [Moles/Vol] 142 mmol/L Normal 136-145 [facility] Comment on above: Performed By: #### C UU, ADDONUAPLUS #### [place] [address] [place] Urea nitrogen [Mass/volume] in Serum or PlasmaOrdered By: Mariana Pryor on 03-27-2023 Urea nitrogen [Mass/Vol] 20 mg/dL Normal 7-25 [facility] Comment on above: Performed By: #### C UU, ADDONUAPLUS #### [place] [address] [place] Alanine aminotransferase [En zymatic activity/volume] in Serum or PlasmaOrdered By: Mariana Pryor on 03-26-2023 ALT [Catalytic activity/Vol] 18 U/L Normal 7-52 [facility] Comment on above: Performed By: #### C BC, CMP, LIPASE #### [place] [address] [place] Albumin [Mass/volume] in Ser um or Plasma by Bromocresol green (BCG) dye binding methoOrdered By: Mariana Pryor on 03-26-2023 Albumin BCG dye [Mass/Vol] 4.1 g/dL 3.5-5.7 [facility] Alkaline phosphatase [Enzyma tic activity/volume] in Serum or PlasmaOrdered By: Mariana Pryor on 03-26-2023 ALP [Catalytic activity/Vol] 92 U/L Normal 34-104 [facility] Comment on above: Performed By: #### C BC, CMP, LIPASE #### [place] [address] [place] Aspartate aminotransferase [ Enzymatic activity/volume] in Serum or PlasmaOrdered By: Mariana Pryor on 03-26-2023 AST [Catalytic activity/Vol] 15 U/L Normal 13-39 [facility] Comment on above: Performed By: #### C BC, CMP, LIPASE #### [facility] [address] [place] [address] Automated erythrocytes count in urine sediment (number/area)Ordered By: Mariana Pryor on 03-26-2023 RBC Auto (Urine sed) [#/Area] None seen [HPF] 0-4 [facility] Automated leukocytes count i n urine sediment (number/area)Ordered By: Mariana Pryor on 03-26-2023 WBC Auto (Urine sed) [#/Area] 20-49 [HPF] 0-4 [facility] Bilirubin Auto test strip Ql (U)Ordered By: Mariana Pryor on 03-26-2023 Bilirubin Ql (U) Negative Negative [facility] Bilirubin.total [Mass/volume ] in Serum or PlasmaOrdered By: Mariana Pryor on 03-26-2023 Bilirubin [Mass/Vol] 0.4 mg/dL Normal 0.3-1.0 [facility] Comment on above: Performed By: #### C BC, CMP, LIPASE #### [facility] [address] [place] [address] CT abdomen pelvis wo conon 1 CT abdomen pelvis wo con [facility] [place] [address] CT Scan Report Signed Patient: Gail Almeida MR#: [id number] 250 : 1955 Acct:[id number] Age/Sex: 67 / F ADM Date: 03/26/23 Loc: Room: [address] [place] [address] Type: ADM IN Attending Dr: Joe Davis [...] Lu Gonzales M.D.03/26/2023 8:39 PM Dictation Location: [place] [address] Transcribed By: [facility] 03/26/232038 Dictated By: Lu Gonzales MD 03/26/232031 Signed By: 03/26/232038 Normal [facility] Cholesterol [Mass/volume] in Serum or PlasmaOrdered By: Joe Davis on 03-26-2023 Cholesterol [Mass/Vol] 165 mg/dL Normal 140-200 [facility] Comment on above: Chol less than 200 m g/dl low riskChol 201-239 mg/dl borderline riskChol 240 mg/dl and greater high risk Result Comment: Chol less than 200 mg/dl low risk Chol 201-239 mg/dl borderline risk Chol 240 mg/dl and greater high risk Performed By: #### T 4F, LIPID, SHCC01SH, TSH3 wRFLX #### [facility] [address] [place] [address] [place] Cholesterol in LDL Calc [Mas s/Vol]Ordered By: Joe Davis on 03-26-2023 Cholesterol in LDL [Mass/Vol] 95 mg/dL 0-100 [facility] Comment on above: LDL ATP III CLASSIFI CATIONLDL less than 100 mg/dL OptimalLDL 100-129 mg/dL Near or above optimalLDL 130-159 mg/dL Borderline highLDL 160-189 mg/dL HighLDL greater than 189 mg/dL Very high Cholesterol in VLDL Calc [Ma ss/Vol]Ordered By: Joe Davis on 03-26-2023 Cholesterol in VLDL [Mass/Vol] 17 mg/dL [facility] Complete Blood Count Auto Di ffon 03-26-2023 Basophils (Bld) [#/Vol] 0.0 10*3/uL Normal 0.0-0.2 [facility] Comment on above: Result Comment: PERF ORMED BY: [place] [address] PATHOLOGIST RAW STOCK MACHINE LOADER GATO PEÑA M.D. Performed By: #### C BC, CMP, LIPASE #### [facility] [address] [place] [address] [place] Basophils/100 WBC (Bld) 0.4 % Normal . [facility] Comment on above: Performed By: #### C BC, CMP, LIPASE #### [facility] [address] [place] [address] [place] Eosinophils (Bld) [#/Vol] 0.0 10*3/uL Normal 0.0-0.45 [facility] Comment on above: Performed By: #### C BC, CMP, LIPASE #### [address] Eosinophils/100 WBC (Bld) 0.0 % Normal . [facility] Comment on above: Performed By: #### C BC, CMP, LIPASE #### [address] Erythrocyte distribution width (RBC) [Ratio] 13.1 % Normal 11.9-15.3 [facility] Comment on above: Performed By: #### C BC, CMP, LIPASE #### [address] Hematocrit (Bld) [Volume fraction] 36.8 % Normal 34.0-46.4 [facility] Comment on above: Performed By: #### C BC, CMP, LIPASE #### [address] Hemoglobin (Bld) [Mass/Vol] 12.2 g/dL Normal 11.8-15.4 [facility] Comment on above: Performed By: #### C BC, CMP, LIPASE #### [address] Lymphocytes (Bld) [#/Vol] 0.4 10*3/uL Low 1.00-4.8 [facility] Comment on above: Performed By: #### C BC, CMP, LIPASE #### [address] Lymphocytes/100 WBC (Bld) 5.2 % Normal . [facility] Comment on above: Performed By: #### C BC, CMP, LIPASE #### [address] MCH (RBC) [Entitic mass] 31.7 pg Normal 24.7-34.3 [facility] Comment on above: Performed By: #### C BC, CMP, LIPASE #### [address] MCV (RBC) [Entitic vol] 95.4 fL Normal 80-100 T [facility] Comment on above: Performed By: #### C BC, CMP, LIPASE #### [facility] [address] Mean Corpuscular HGB Conc 33.2 g/dL Normal 32.0-35.0 [facility] Comment on above: Performed By: #### C BC, CMP, LIPASE #### [address] Monocytes (Bld) [#/Vol] 0.3 10*3/uL Normal 0.0-0.8 [facility] Comment on above: Performed By: #### C BC, CMP, LIPASE #### [address] Monocytes/100 WBC (Bld) 4.6 % Normal . [facility] [place] [facility] Comment on above: Performed By: #### C BC, CMP, LIPASE #### [address] Neutrophils (Bld) [#/Vol] 6.7 10*3/uL Normal 1.8-7.7 [facility] Comment on above: Performed By: #### C BC, CMP, LIPASE #### [place] [address] [place] Neutrophils/100 WBC (Bld) 89.8 % Normal . [facility] Comment on above: Performed By: #### C BC, CMP, LIPASE #### [address] NRBC% 0.0 /100{WBC} Normal 0-0.5 [facility] Comment on above: Performed By: #### C BC, CMP, LIPASE #### [address] Platelet mean volume (Bld) [Entitic vol] 8.4 fL Normal 6.3-10.7 [facility] Comment on above: Performed By: #### C BC, CMP, LIPASE #### [place] [address] [place] Platelets (Bld) [#/Vol] 215 10*3/uL Normal 150-450 [facility] Comment on above: Performed By: #### C BC, CMP, LIPASE #### [address] RBC (Bld) [#/Vol] 3.86 10*6/uL Normal 3.60-5.00 [facility] Comment on above: Performed By: #### C BC, CMP, LIPASE #### [address] WBC (Bld) [#/Vol] 7.5 10*3/uL Normal 3.8-11.6 [facility] Comment on above: Performed By: #### C BC, CMP, LIPASE #### [address] Comprehensive Metabolic Pane [facility] 03-26-2023 Albumin [Mass/Vol] 4.1 g/dL Normal 3.5-5.7 [facility] Comment on above: Performed By: #### C BC, CMP, LIPASE #### [address] Anion gap [Moles/Vol] 5.5 mmol/L Low 6.0-15.0 [facility] Comment on above: Performed By: #### C BC, CMP, LIPASE #### [address] Calcium [Mass/Vol] 9.5 mg/dL Normal 8.6-10.3 [facility] Comment on above: Performed By: #### C BC, CMP, LIPASE #### [address] Chloride [Moles/Vol] 120 mmol/L High 98-107 [facility] Comment on above: Performed By: #### C BC, CMP, LIPASE #### [address] CO2 [Moles/Vol] 20.4 mmol/L Low 21.0-31.0 [facility] Comment on above: Performed By: #### C BC, CMP, LIPASE #### [place] [address] [place] Creatinine [Mass/Vol] 0.99 mg/dL Normal 0.60-1.20 [facility] Comment on above: Performed By: #### C BC, CMP, LIPASE #### [address] Creatinine Clr Calc Pharmacy 50.16 Normal [facility] Comment on above: Performed By: #### C BC, CMP, LIPASE #### [facility] [address] [place] [address] [place] GFR/1.73 sq M.predicted MDRD (S/P/Bld) [Vol rate/Area] mL/min/{1.73_m2} Normal [facility] Comment on above: Performed By: #### C BC, CMP, LIPASE #### [address] Glucose [Mass/Vol] 119 mg/dL High 70-100 [facility] Comment on above: Result Comment: [place] Glucose Reference Range is dependent on time and content of last meal. Glucose of more than 200 mg/dL in a nonstressed, ambulatory subject supports the diagnosis of Diabetes Mellitus. ADA recommended reference range Performed By: #### C BC, CMP, LIPASE #### [address] Potassium [Moles/Vol] 3.9 mmol/L Normal 3.5-5.1 [facility] Comment on above: Performed By: #### C BC, CMP, LIPASE #### [place] [address] [place] Sodium [Moles/Vol] 142 mmol/L Normal 136-145 [facility] Comment on above: Performed By: #### C BC, CMP, LIPASE #### [address] Urea nitrogen [Mass/Vol] 22 mg/dL Normal 7-25 [facility] Comment on above: Performed By: #### C BC, CMP, LIPASE #### [place] [address] [place] Dipstick and Microscopicon 1 Bacteria,Urine None Seen Normal None Seen [facility] Comment on above: Order Comment: Name Collection Type:: Clean-Voided Midstream Performed By: #### C UU, ADDONUAPLUS #### [address] Bilirubin,Urine Negative Normal Negative [facility] Comment on above: Order Comment: Name Collection Type:: Clean-Voided Midstream Performed By: #### C UU, ADDONUAPLUS #### [address] Glucose Ql (U) Normal Normal Normal [facility] Comment on above: Order Comment: Name Collection Type:: Clean-Voided Midstream Performed By: #### C UU, ADDONUAPLUS #### [address] Hyaline Casts,Urine None Seen Normal 0-8 [facility] Comment on above: Order Comment: Name Collection Type:: Clean-Voided Midstream Result Comment: PERF ORMED BY: [place] [address] PATHOLOGIST RAW STOCK MACHINE LOADER GATO PEÑA M.D. Performed By: #### C UU, ADDONUAPLUS #### [address] Ketones Ql (U) 1+ High Negative [facility] Comment on above: Order Comment: Name Collection Type:: Clean-Voided Midstream Performed By: #### C UU, ADDONUAPLUS #### [place] [address] [place] Leukocyte esterase Test strip Ql (U) 3+ High Negative [facility] Comment on above: Order Comment: Name Collection Type:: Clean-Voided Midstream Performed By: #### C UU, ADDONUAPLUS #### [place] [address] [place] Nitrite,Urine Negative Normal Negative [facility] Comment on above: Order Comment: Name Collection Type:: Clean-Voided Midstream Performed By: #### C UU, ADDONUAPLUS #### [address] Occult Blood,Urine Trace High Negative [facility] Comment on above: Order Comment: Name Collection Type:: Clean-Voided Midstream Result Comment: PERF ORMED BY: [place] [address] PATHOLOGIST RAW STOCK MACHINE LOADER GATO PEÑA M.D. Performed By: #### C UU, ADDONUAPLUS #### [place] [address] [place] Protein,Urine Negative Normal Negative [facility] Comment on above: Order Comment: Name Collection Type:: Clean-Voided Midstream Performed By: #### C UU, ADDONUAPLUS #### [address] RBC,Urine None Seen Normal 0-4 [facility] Comment on above: Order Comment: Name Collection Type:: Clean-Voided Midstream Performed By: #### C UU, ADDONUAPLUS #### [address] Specificy [place],Urine 1.010 Normal 1.00 1-1.03 0 [facility] Comment on above: Order Comment: Name Collection Type:: Clean-Voided Midstream Performed By: #### C UU, ADDONUAPLUS #### [address] Squamous Epithelial Cell,Urine 0-1 Normal 0-2 [facility] Comment on above: Order Comment: Name Collection Type:: Clean-Voided Midstream Performed By: #### C UU, ADDONUAPLUS #### [place] [address] [place] Urobilinogen,Urine Normal Normal Normal [facility] Comment on above: Order Comment: Name Collection Type:: Clean-Voided Midstream Performed By: #### C UU, ADDONUAPLUS #### [place] [address] [place] WBC,Urine 20-49 High 0-4 [facility] Comment on above: Order Comment: Name Collection Type:: Clean-Voided Midstream Performed By: #### C KAI FELIXWALESKATIMUR #### [address] ECG 12 lead ECGon 03-26-2023 ECG 12 lead ECG [facility] Main [place] [address] [place] [address] Electrocardiograph Report Signed Patient: Gail Almeida MR#: [id number] 250 : 1955 Acct:[id number] Age/Sex: 67 / F ADM Date: 03/26/23 Loc: Room: [address] [place] [address] Type: ADM IN Attending Dr: Joe Davis MD Ordering Provider: Joe Davis MD Date of Service: 03/26/23 ECG/ECG 12 lead ECG: baseline for [place] Copies to: Test Reason : Blood Pressure [...] MUS Signed By Tamir Robles DO 03/26 Normal [facility] Ketones Auto test strip (U) [Mass/Vol]Ordered By: Mariana Pryor on 03-26-2023 Ketones (U) [Mass/Vol] 1+ Negative [facility] - UrinalysisOrder ed By: Mariana Pryor on 03-26-2023 Hyaline casts LM Ql (Urine sed) None seen [LPF] 0-8 [facility] Lipase [Enzymatic activity/v olume] in Serum or PlasmaOrdered By: Mariana Pryor on 03-26-2023 Lipase [Catalytic activity/Vol] 11.0 U/L Normal 11.0-82.0 [facility] Comment on above: Result Comment: PERF ORMED BY: [place] [address] PATHOLOGIST RAW STOCK MACHINE LOADER GATO PEÑA M.D. Performed By: #### C BC, CMP, LIPASE #### [facility] [address] Lipid Panelon 03-26-2023 LDL Cholesterol,Calculated 95 mg/dL Normal 0-100 [facility] Comment on above: Result Comment: LDL ATP III CLASSIFICATION LDL less than 100 mg/dL Optimal LDL 100-129 mg/dL Near or above optimal LDL 130-159 mg/dL Borderline high LDL 160-189 mg/dL High LDL greater than 189 mg/dL Very high Performed By: #### T 4F, LIPID, [id number], TSH3 wRFLX #### [address] Triglyceride w/Reflex 86 mg/dL Normal 0-149 [facility] Comment on above: Result Comment: TRIG ATP III CLASSIFICATION TRIG less than 150 mg/dL Normal TRIG 150-199 mg/dL Borderline high TRIG 200-500 mg/dL High TRIG greater than 500 mg/dL Very high Standard traceable to the Center for Disease Conrtrol and Prevention (CDC) test method. Performed By: #### T 4F, LIPID, [id number], TSH3 wRFLX #### [address] VLDL CHOLESTEROL 17 mg/dL Normal [facility] Comment on above: Performed By: #### T 4F, LIPID, [id number], TSH3 wRFLX #### [address] [place] [Moles/volume] in Se rum or PlasmaOrdered By: Joe Davis on 03-26-2023 [place] [Moles/Vol] 0.20 mmol/L Low 0.60-1.20 [facility] Comment on above: Result Comment: PERF ORMED BY: [place] [address] PATHOLOGIST RAW STOCK MACHINE LOADER GATO PEÑA M.D. Performed By: #### C UU, ADDONUAPLUS #### [address] Protein Auto test strip (U) [Mass/Vol]Ordered By: Mariana Pryor on 03-26-2023 Protein (U) [Mass/Vol] Negative Negative [facility] Protein [Mass/volume] in Ser um or PlasmaOrdered By: Mariana Pryor on 03-26-2023 Protein [Mass/Vol] 6.5 g/dL Normal 6.4-8.9 [facility] Comment on above: Performed By: #### C BC, CMP, LIPASE #### [address] Serum globulin measurement b y calculation (mass/volume)Ordered By: Mariana Pryor on 03-26-2023 Globulin (S) [Mass/Vol] 2.4 g/dL Normal [facility] Comment on above: Performed By: #### C BC, CMP, LIPASE #### [address] Serum or plasma albumin/glob ulin mass ratioOrdered By: Mariana Pryor on 03-26-2023 Albumin/Globulin [Mass ratio] 1.7 {ratio} Normal [facility] Comment on above: Performed By: #### C BC, CMP, LIPASE #### [facility] [address] [place] [address] Serum or plasma high density lipoprotein (HDL) cholesterol measurementOrdered By: Joe Davis on 03-26-2023 Cholesterol in HDL [Mass/Vol] 53 mg/dL Normal 23- [facility] Comment on above: HDL CHOL ATP-III CLA SSIFICATION Cardiovascular RiskHDL > or equal to 60 mg/dL LOWHDL < 40 mg/dL HIGH Result Comment: HDL CHOL ATP-III CLASSIFICATION Cardiovascular Risk HDL > or equal to 60 mg/dL LOW HDL < 40 mg/dL HIGH Performed By: #### T 4F, LIPID, [id number], TSH3 wRFLX #### [facility] [address] Serum or plasma total choles terol/high density lipoprotein (HDL) cholesterol mass ratOrdered By: Joe Davis on 03-26-2023 Cholesterol.total/Judy sterol in HDL [Mass ratio] 3.1 {ratio} Normal <5.0 [facility] Comment on above: Performed By: #### T 4F, LIPID, [id number], TSH3 wRFLX #### [facility] [address] Squamous epithelial cells de tection in urine sediment by light microscopyOrdered By: Mariana Pryor on 03-26-2023 Epithelial cells.squamous LM Ql (Urine sed) 0-1 [HPF] 0-2 [facility] Thyroid Stim Hormone w/Rflxo n 03-26-2023 Thyroid Stim Hormone w/Rflx 0.42 u[iU]/mL Low 0.45-5.33 [facility] Comment on above: Performed By: #### T 4F, LIPID, [id number], TSH3 wRFLX #### [address] Thyrotropin [Units/volume] i n Serum or PlasmaOrdered By: Joe Davis on 03-26-2023 TSH Qn 0.42 m[IU]/L 0.45-5.33 [facility] Thyroxine (T4) free [Mass/vo lume] in Serum or PlasmaOrdered By: Joe Davis on 03-26-2023 Free T4 [Mass/Vol] 0.74 ng/dL Normal 0.61-1.12 [facility] Comment on above: Performed By: #### T 4F, LIPID, [id number], TSH3 wRFLX #### [facility] [address] [place] [address] Triglyceride [Mass/volume] i n Serum or PlasmaOrdered By: Joe Davis on 03-26-2023 Triglyceride [Mass/Vol] 86 mg/dL 0-149 [facility] Comment on above: TRIG ATP III CLASSIF ICATIONTRIG less than 150 mg/dL NormalTRIG 150-199 mg/dL Borderline highTRIG 200-500 mg/dL High TRIG greater than 500 mg/dL Very highStandard traceable to the Center for Disease Conrtrol and Prevention (CDC) test method. Urine Cultureon 03-26-2023 Bacteria identified Cx Nom (U) ORGANISM: Morganella morganii (O:MORMOR) [place] Count 30,000 Aerobic FELIZ Charge (NMIC56) - [...] RESISTANT TO ALL B-LACTAM DRUGS. PERFORMED BY: [facility] [address] [place] [address] PATHOLOGIST RAW STOCK MACHINE LOADER GATO PEÑA M.D. Normal [facility] Comment on above: Performed By: #### C IVAN FELIX #### [facility] [address] Urine appearanceOrdered By: Mariana Pryor on 03-26-2023 Appearance (U) Clear Normal Clear [facility] Comment on above: Order Comment: Name Collection Type:: Clean-Voided Midstream Performed By: #### C UU, ADDONUAPLUS #### [facility] [address] [place] [address] [place] Urine bacteria detection by automated methodOrdered By: Mariana Pryor on 03-26-2023 Bacteria Auto Ql (U) None seen None Seen [facility] Urine colorOrdered By: Mariana Pryor on 03-26-2023 Color (U) Yellow Normal Yellow [facility] Comment on above: Order Comment: Name Collection Type:: Clean-Voided Midstream Performed By: #### C UU, ADDONUAPLUS #### [facility] [address] [place] [address] Urine glucose measurement by automated test strip (mass/volume)Ordered By: Mariana Pryor on 03-26-2023 Glucose Auto test strip (U) [Mass/Vol] Normal mg/dL Normal [facility] Urine hemoglobin detection b y automated test stripOrdered By: Mariana Guillaume on 03-26-2023 Hemoglobin Auto test strip Ql (U) Trace Negative [facility] Urine leukocyte esterase det ection by automated test stripOrdered By: Mariana Pryor on 03-26-2023 Leukocyte esterase Auto test strip Ql (U) 3+ Negative [facility] Urine nitrite detection by a utomated test stripOrdered By: Mariana Pryor on 03-26-2023 Nitrite Auto test strip Ql (U) Negative Negative [facility] Urine pH measurement by auto mated test stripOrdered By: Mariana Pryor on 03-26-2023 pH (U) 6.0 [pH] Normal 5.0-9.0 [facility] Comment on above: Order Comment: Name Collection Type:: Clean-Voided Midstream Performed By: #### C UU, ADDONUAPLUS #### [facility] [address] [place] [address] [place] Urobilinogen Auto test strip (U) [Mass/Vol]Ordered By: Mariana Pryor on 03-26-2023 Urobilinogen (U) [Mass/Vol] Normal mg/dL Normal [facility] Vitamin D 25 Hydroxy Totalon 03-26-2023 Vitamin D 25 Hydroxy Total 34.5 ng/mL Normal 30-100 [facility] Comment on above: Result Comment: EDUARDO MIN D STATUS 25(OH)VITAMIN D RANGE (ng/mL) Deficient <20 Insufficient 20 to <30 Sufficient 30 to 100 Reference: Renée Woodward, Francisco CARPIO, et al. Evaluation,treatment, and prevention of vitamin D deficiency; an Endocrine Society clinical practice guideline. JCEM. 2010; 96(7):1911-. PERFORMED BY: [facility] [address] [place] [address] PATHOLOGIST RAW STOCK MACHINE LOADER GATO PEÑA M.D. Performed By: #### T 4F, LIPID, [id number], TSH3 wRFLX #### [facility] [address] Vitamin D+Metabolites [Mass/ volume] in Serum or PlasmaOrdered By: Joe Davis on 03-26-2023 Vitamin D+Metabolites [Mass/Vol] 34.5 ng/mL 30-100 [facility] Comment on above: VITAMIN D STATUS 25( OH)VITAMIN D RANGE (ng/mL) Deficient <20 Insufficient 20 to <30Sufficient 30 to 100Reference: Renée Woodward, Francisco CARPIO, et al. Evaluation,treatment, and prevention of vitamin D deficiency; an Endocrine Society clinical practice guideline. JCEM. 2010; 96(7):1911-30. pH Auto test strip (U)Ordere d By: Mariana Pryor on 03-26-2023 pH (U) 1.010 [pH] 1.001-1.03 0 [facility] Alanine aminotransferase [En zymatic activity/volume] in Serum or PlasmaOrdered By: Mariana Kee on 03-14-2023 ALT [Catalytic activity/Vol] 28 U/L Normal 7-52 [facility] Comment on above: Performed By: #### C BC, CMP, LIPASE #### [address] Albumin [Mass/volume] in Ser um or Plasma by Bromocresol green (BCG) dye binding methoOrdered By: Mariana Kee on 03-14-2023 Albumin BCG dye [Mass/Vol] 3.9 g/dL 3.5-5.7 [facility] Alkaline phosphatase [Enzyma tic activity/volume] in Serum or PlasmaOrdered By: Mariana Kee on 03-14-2023 ALP [Catalytic activity/Vol] 86 U/L Normal 34-104 [facility] Comment on above: Performed By: #### C BC, CMP, LIPASE #### [address] Aspartate aminotransferase [ Enzymatic activity/volume] in Serum or PlasmaOrdered By: Mariana Kee on 03-14-2023 AST [Catalytic activity/Vol] 18 U/L Normal 13-39 [facility] Comment on above: Performed By: #### C BC, CMP, LIPASE #### [address] Automated basophil %Ordered By: Mariana Kee on 03-14-2023 Basophils/100 WBC (Bld) 1.0 % Normal . [facility] Comment on above: Performed By: #### C BC, CMP, LIPASE #### [address] Automated basophil countOrde red By: Mariana Kee on 03-14-2023 Basophils (Bld) [#/Vol] 0.1 10*3/uL Normal 0.0-0.2 [facility] Comment on above: Result Comment: PERF ORMED BY: [place] [address] PATHOLOGIST RAW STOCK MACHINE LOADER GATO PEÑA M.D. Performed By: #### C BC, CMP, LIPASE #### [address] Automated blood monocyte cou ntOrdered By: Mariana Kee on 03-14-2023 Monocytes (Bld) [#/Vol] 0.6 10*3/uL Normal 0.0-0.8 [facility] Comment on above: Performed By: #### C BC, CMP, LIPASE #### [address] Automated eosinophil %Ordere d By: Marianamachelle Kee on 03-14-2023 Eosinophils/100 WBC (Bld) 4.6 % Normal . [facility] Comment on above: Performed By: #### C BC, CMP, LIPASE #### [address] Automated eosinophil countOr dered By: Marianamachelle Kee on 03-14-2023 Eosinophils (Bld) [#/Vol] 0.2 10*3/uL Normal 0.0-0.45 [facility] Comment on above: Performed By: #### C BC, CMP, LIPASE #### [address] Automated monocyte %Ordered By: Mariana Kee on 03-14-2023 Monocytes/100 WBC (Bld) 11.5 % Normal . [facility] Comment on above: Performed By: #### C BC, CMP, LIPASE #### [address] Automated neutrophil %Ordere d By: Mariana Kee on 03-14-2023 Neutrophils/100 WBC (Bld) 45.7 % Normal . [facility] Comment on above: Performed By: #### C BC, CMP, LIPASE #### [address] Bilirubin.total [Mass/volume ] in Serum or PlasmaOrdered By: Mariana Kee on 03-14-2023 Bilirubin [Mass/Vol] 0.3 mg/dL Normal 0.3-1.0 [facility] Comment on above: Performed By: #### C BC, CMP, LIPASE #### [address] abdomen pelvis wo/w conon 03-14-2023 CT abdomen pelvis wo/w con [facility] Main [place] [address] [place] [address] CT Scan Report Signed Patient: Gail Almeida MR#: [id number] 250 : 1955 Acct:[id number] Age/Sex: 67 / F ADM Date: 03/11/23 Loc: Room: [address] [place] [address] Type: ADM IN Attending Dr: Joe Davis [...] Lees Jr., D.O.03/14/2023 4:07 PM Dictation Location: [place] [address] Transcribed By: [facility] 03/14/23 1604 Dictated By: Yandel Lees Jr, DO 03/14/23 1604 Signed By: 03/14/23 160 Normal [facility] Calcium [Mass/volume] in Ser um or PlasmaOrdered By: Mariana Kee on 03-14-2023 Calcium [Mass/Vol] 9.3 mg/dL Normal 8.6-10.3 [facility] Comment on above: Performed By: #### C BC, CMP, LIPASE #### [facility] [address] Carbon dioxide, total [Moles /volume] in Serum or PlasmaOrdered By: Mariana Kee on 03-14-2023 CO2 [Moles/Vol] 20.1 mmol/L Low 21.0-31.0 [facility] Comment on above: Performed By: #### C BC, CMP, LIPASE #### [facility] [address] Chloride [Moles/volume] in S kishan or PlasmaOrdered By: Mariana Kee on 03-14-2023 Chloride [Moles/Vol] 116 mmol/L High 98-107 [facility] Comment on above: Performed By: #### C BC, CMP, LIPASE #### [address] Complete Blood Count Auto Di ffon 03-14-2023 Mean Corpuscular HGB Conc 33.5 g/dL Normal 32.0-35.0 [facility] Comment on above: Performed By: #### C BC, CMP, LIPASE #### [address] NRBC% 0.1 /100{WBC} Normal 0-0.5 [facility] Comment on above: Performed By: #### C BC, CMP, LIPASE #### [facility] [address] Comprehensive Metabolic Pane eusebia 03-14-2023 Albumin [Mass/Vol] 3.9 g/dL Normal 3.5-5.7 [facility] Comment on above: Performed By: #### C BC, CMP, LIPASE #### [address] Creatinine Clr Calc Pharmacy 49.17 Normal [facility] Comment on above: Performed By: #### C BC, CMP, LIPASE #### [address] GFR/1.73 sq M.predicted MDRD (S/P/Bld) [Vol rate/Area] mL/min/{1.73_m2} Normal [facility] Comment on above: Performed By: #### C BC, CMP, LIPASE #### [address] Creatinine [Mass/volume] in Serum or PlasmaOrdered By: Mariana Kee on 03-14-2023 Creatinine [Mass/Vol] 1.01 mg/dL Normal 0.60-1.20 [facility] Comment on above: Performed By: #### C BC, CMP, LIPASE #### [address] Erythrocyte distribution wid th [Ratio] by Automated countOrdered By: Mariana Kee on 03-14-2023 Erythrocyte distribution width (RBC) [Ratio] 13.3 % Normal 11.9-15.3 [facility] Comment on above: Performed By: #### C BC, CMP, LIPASE #### [place] [address] [place] Erythrocytes [#/volume] in B lood by Automated countOrdered By: Mariana Kee on 03-14-2023 RBC (Bld) [#/Vol] 3.93 10*6/uL Normal 3.60-5.00 [facility] Comment on above: Performed By: #### C BC, CMP, LIPASE #### [place] [address] [place] Glucose [Mass/volume] in Ser um or PlasmaOrdered By: Mariana Kee on 03-14-2023 Glucose [Mass/Vol] 101 mg/dL High 70-100 [facility] Comment on above: ADA recommended refe rence rangeRandom Glucose Reference Range is dependent on time and content of last meal. Glucose of more than 200 mg/dL in a nonstressed, ambulatory subject supports the diagnosis of Diabetes Mellitus. Result Comment: [place] om Glucose Reference Range is dependent on time and content of last meal. Glucose of more than 200 mg/dL in a nonstressed, ambulatory subject supports the diagnosis of Diabetes Mellitus. ADA recommended reference range Performed By: #### C BC, CMP, LIPASE #### [address] Hematocrit [Volume Fraction] of Blood by Automated countOrdered By: Mariana Kee on 03-14-2023 Hematocrit (Bld) [Volume fraction] 37.4 % Normal 34.0-46.4 [facility] Comment on above: Performed By: #### C BC, CMP, LIPASE #### [address] Hemoglobin [Mass/volume] in BloodOrdered By: Mariana Kee on 03-14-2023 Hemoglobin (Bld) [Mass/Vol] 12.5 g/dL Normal 11.8-15.4 [facility] Comment on above: Performed By: #### C BC, CMP, LIPASE #### [address] Leukocytes [#/volume] correc cornelia for nucleated erythrocytes in Blood by Automated counOrdered By: Mariana Kee on 03-14-2023 WBC corrected for nucl RBC Auto (Bld) [#/Vol] 5.2 10*3/uL 3.8-11.6 [facility] Leukocytes [#/volume] in Blo od by Automated countOrdered By: Mariana Kee on 03-14-2023 WBC (Bld) [#/Vol] 5.2 10*3/uL Normal 3.8-11.6 [facility] Comment on above: Performed By: #### C BC, CMP, LIPASE #### [address] Lipase [Enzymatic activity/v olume] in Serum or PlasmaOrdered By: Mariana Kee on 03-14-2023 Lipase [Catalytic activity/Vol] 21.0 U/L Normal 11.0-82.0 [facility] Comment on above: Result Comment: PERF ORMED BY: [place] [address] PATHOLOGIST RAW STOCK MACHINE LOADER GATO PEÑA M.D. Performed By: #### C BC, CMP, LIPASE #### [address] Lymphocytes [#/volume] in Bl ood by Automated countOrdered By: Mariana Kee on 03-14-2023 Lymphocytes (Bld) [#/Vol] 1.9 10*3/uL Normal 1.00-4.8 [facility] Comment on above: Performed By: #### C BC, CMP, LIPASE #### [address] Lymphocytes/100 leukocytes i n Blood by Automated countOrdered By: Mariana Kee on 03-14-2023 Lymphocytes/100 WBC (Bld) 37.2 % Normal . [facility] Comment on above: Performed By: #### C BC, CMP, LIPASE #### [address] MCH [Entitic mass] by Automa cornelia countOrdered By: Mariana Kee on 03-14-2023 MCH (RBC) [Entitic mass] 31.9 pg Normal 24.7-34.3 [facility] Comment on above: Performed By: #### C BC, CMP, LIPASE #### [address] MCHC Auto (RBC) [Mass/Vol]Or dered By: Mariana Kee on 03-14-2023 MCHC (RBC) [Mass/Vol] 33.5 g/dL 32.0-35.0 [facility] MCV [Entitic volume] by Auto mated countOrdered By: Mariana Kee on 03-14-2023 MCV (RBC) [Entitic vol] 95.2 fL Normal 80-100 [facility] Comment on above: Performed By: #### C BC, CMP, LIPASE #### [place] [address] [place] Neutrophils [#/volume] in Bl ood by Automated countOrdered By: Mariana Kee on 03-14-2023 Neutrophils (Bld) [#/Vol] 2.4 10*3/uL Normal 1.8-7.7 [facility] Comment on above: Performed By: #### C BC, CMP, LIPASE #### [address] No Panel InformationOrdered By: Mraiana Kee on 03-14-2023 Estimated GFR (CKD-EPI) > 60.0 mL/Min [facility] Creatinine Clearance (Chem 49.17 [facility] Nucleated erythrocytes [Pres ence] in Blood by Automated countOrdered By: Mariana Kee on 03-14-2023 Nucleated RBC Auto Ql (Bld) 0.1 /100{WBC} 0-0.5 [facility] Platelet mean volume [Entiti c volume] in Blood by Automated countOrdered By: Mariana Kee on 03-14-2023 Platelet mean volume (Bld) [Entitic vol] 8.7 fL Normal 6.3-10.7 [facility] Comment on above: Performed By: #### C BC, CMP, LIPASE #### [address] Platelets [#/volume] in Bloo d by Automated countOrdered By: Mariana Kee on 03-14-2023 Platelets (Bld) [#/Vol] 212 10*3/uL Normal 150-450 [facility] Comment on above: Performed By: #### C BC, CMP, LIPASE #### [place] [address] [place] Potassium [Moles/volume] in Serum or PlasmaOrdered By: Mariana Kee on 03-14-2023 Potassium [Moles/Vol] 4.2 mmol/L Normal 3.5-5.1 [facility] Comment on above: Performed By: #### C BC, CMP, LIPASE #### [address] Protein [Mass/volume] in Ser um or PlasmaOrdered By: Mariana Kee on 03-14-2023 Protein [Mass/Vol] 5.9 g/dL Low 6.4-8.9 [facility] Comment on above: Performed By: #### C BC, CMP, LIPASE #### [address] Serum globulin measurement b y calculation (mass/volume)Ordered By: Mariana Kee on 03-14-2023 Globulin (S) [Mass/Vol] 2.0 g/dL Normal [facility] Comment on above: Performed By: #### C BC, CMP, LIPASE #### [address] Serum or plasma albumin/glob ulin mass ratioOrdered By: Mariana Kee on 03-14-2023 Albumin/Globulin [Mass ratio] 2.0 {ratio} Normal [facility] Comment on above: Performed By: #### C BC, CMP, LIPASE #### [address] Serum or plasma anion gap de terminationOrdered By: Mariana Kee on 03-14-2023 Anion gap [Moles/Vol] 9.1 mmol/L Normal 6.0-15.0 [facility] Comment on above: Performed By: #### C BC, CMP, LIPASE #### [address] Sodium [Moles/volume] in Ser um or PlasmaOrdered By: Mariana Kee on 03-14-2023 Sodium [Moles/Vol] 141 mmol/L Normal 136-145 [facility] Comment on above: Performed By: #### C BC, CMP, LIPASE #### [address] Urea nitrogen [Mass/volume] in Serum or PlasmaOrdered By: aMriana Kee on 03-14-2023 Urea nitrogen [Mass/Vol] 30 mg/dL High 7-25 [facility] Comment on above: Performed By: #### C BC, CMP, LIPASE #### [address] Automated erythrocytes count in urine sediment (number/area)Ordered By: Joe Davis on 03-12-2023 RBC Auto (Urine sed) [#/Area] 0-1 [HPF] 0-4 [facility] Automated leukocytes count i n urine sediment (number/area)Ordered By: Joe Davis on 03-12-2023 WBC Auto (Urine sed) [#/Area] 20-49 [HPF] 0-4 [facility] Automated urine color determ inationOrdered By: Joe Davis on 03-12-2023 Color (U) Yellow Normal Yellow [facility] Comment on above: Order Comment: Name Collection Type:: Clean-Voided Midstream Performed By: #### C UU, ADDONUAPLUS #### [facility] [address] Bilirubin Test strip Ql (U)O rdered By: Joe Davis on 03-12-2023 Bilirubin Ql (U) Negative Negative [facility] Cholesterol [Mass/volume] in Serum or PlasmaOrdered By: Joe Davis on 03-12-2023 Cholesterol [Mass/Vol] 162 mg/dL Normal 140-200 [facility] Comment on above: Chol less than 200 m g/dl low riskChol 201-239 mg/dl borderline riskChol 240 mg/dl and greater high risk Result Comment: Chol less than 200 mg/dl low risk Chol 201-239 mg/dl borderline risk Chol 240 mg/dl and greater high risk Performed By: #### C BC, CMP, LIPASE #### [facility] [address] [place] [id number] [facility] Cholesterol in LDL Calc [Mas s/Vol]Ordered By: Joe Davis on 03-12-2023 Cholesterol in LDL [Mass/Vol] 95 mg/dL 0-100 [facility] Comment on above: LDL ATP III CLASSIFI CATIONLDL less than 100 mg/dL OptimalLDL 100-129 mg/dL Near or above optimalLDL 130-159 mg/dL Borderline highLDL 160-189 mg/dL HighLDL greater than 189 mg/dL Very high Cholesterol in VLDL Calc [Ma ss/Vol]Ordered By: Joe Davis on 03-12-2023 Cholesterol in VLDL [Mass/Vol] 15 mg/dL [facility] Dipstick and Microscopicon 1 Appearance (U) Clear Normal Clear [facility] Comment on above: Order Comment: Name Collection Type:: Clean-Voided Midstream Performed By: #### C UU, ADDONUAPLUS #### [address] Bacteria,Urine None Seen Normal None Seen [facility] Comment on above: Order Comment: Name Collection Type:: Clean-Voided Midstream Performed By: #### C UU, ADDONUAPLUS #### [address] Bilirubin,Urine Negative Normal Negative [facility] Comment on above: Order Comment: Name Collection Type:: Clean-Voided Midstream Performed By: #### C UU, ADDONUAPLUS #### [address] Glucose Ql (U) Normal Normal Normal [facility] Comment on above: Order Comment: Name Collection Type:: Clean-Voided Midstream Performed By: #### C UU, ADDONUAPLUS #### [place] [address] [place] Hyaline Casts,Urine 0-8 Normal 0-8 [facility] Comment on above: Order Comment: Name Collection Type:: Clean-Voided Midstream Result Comment: PERF ORMED BY: [place] [address] PATHOLOGIST RAW STOCK MACHINE LOADER GATO PEÑA M.D. Performed By: #### C UU, ADDONUAPLUS #### [address] Ketones Ql (U) Negative Normal Negative [facility] Comment on above: Order Comment: Name Collection Type:: Clean-Voided Midstream Performed By: #### C UU, ADDONUAPLUS #### [address] Leukocyte esterase Test strip Ql (U) 4+ High Negative [facility] Comment on above: Order Comment: Name Collection Type:: Clean-Voided Midstream Performed By: #### C UU, ADDONUAPLUS #### [place] [address] [place] Nitrite,Urine Negative Normal Negative [facility] Comment on above: Order Comment: Name Collection Type:: Clean-Voided Midstream Performed By: #### C UU, ADDONUAPLUS #### [address] Occult Blood,Urine Negative Normal Negative [facility] Comment on above: Order Comment: Name Collection Type:: Clean-Voided Midstream Result Comment: PERF ORMED BY: [place] [address] PATHOLOGIST RAW STOCK MACHINE LOADER GATO PEÑA M.D. Performed By: #### C UU, ADDONUAPLUS #### [place] [address] [place] Protein,Urine Negative Normal Negative [facility] Comment on above: Order Comment: Name Collection Type:: Clean-Voided Midstream Performed By: #### C UU, ADDONUAPLUS #### [address] RBC LM.HPF (Urine sed) [#/Area] 0 /[HPF] Normal 0-4 [facility] Comment on above: Order Comment: Name Collection Type:: Clean-Voided Midstream Performed By: #### C UU, ADDONUAPLUS #### [address] Specificy [place],Urine 1.006 Normal 1.00 1-1.03 0 [facility] Comment on above: Order Comment: Name Collection Type:: Clean-Voided Midstream Performed By: #### C UU, ADDONUAPLUS #### [address] Squamous Epithelial Cell,Urine 0-1 Normal 0-2 [facility] Comment on above: Order Comment: Name Collection Type:: Clean-Voided Midstream Performed By: #### C UU, ADDONUAPLUS #### [facility] [address] [place] [address] Urobilinogen,Urine Normal Normal Normal [facility] Comment on above: Order Comment: Name Collection Type:: Clean-Voided Midstream Performed By: #### C UU, ADDONUAPLUS #### [facility] [address] WBC,Urine 20-49 High 0-4 [facility] Comment on above: Order Comment: Name Collection Type:: Clean-Voided Midstream Performed By: #### C UU, ADDONUAPLUS #### [address] ECG 12 lead ECGon 03-12-2023 ECG 12 lead ECG [facility] Main [place] [address] [place] [address] Electrocardiograph Report Signed Patient: Gail Almeida MR#: [id number] : 1955 Acct:[id number] Age/Sex: 67 / F ADM Date: 03/11/23 Loc: Room: [address] [place] [address] Type: ADM IN Attending Dr: Joe Davis [...] 03/12/2023 4:52:03 PM Referred By: Electronically Signed By:ZKA BROWN DO Transcribed By: MUS Signed By Zak Brown,DO 03/12 1652 Normal [facility] Ketones Auto test strip (U) [Mass/Vol]Ordered By: Joe Davis on 03-12-2023 Ketones (U) [Mass/Vol] Negative Negative [facility] - UrinalysisOrder ed By: Joe Davis on 03-12-2023 Hyaline casts LM Ql (Urine sed) 0-8 [LPF] 0-8 [facility] Lipid Panelon 03-12-2023 LDL Cholesterol,Calculated 95 mg/dL Normal 0-100 [facility] Comment on above: Result Comment: LDL ATP III CLASSIFICATION LDL less than 100 mg/dL Optimal LDL 100-129 mg/dL Near or above optimal LDL 130-159 mg/dL Borderline high LDL 160-189 mg/dL High LDL greater than 189 mg/dL Very high Performed By: #### C BC, CMP, LIPASE #### [facility] [address] Triglyceride w/Reflex 76 mg/dL Normal 0-149 [facility] Comment on above: Result Comment: TRIG ATP III CLASSIFICATION TRIG less than 150 mg/dL Normal TRIG 150-199 mg/dL Borderline high TRIG 200-500 mg/dL High TRIG greater than 500 mg/dL Very high Standard traceable to the Center for Disease Conrtrol and Prevention (CDC) test method. Performed By: #### C BC, CMP, LIPASE #### [facility] [address] VLDL CHOLESTEROL 15 mg/dL Normal [facility] Comment on above: Performed By: #### C BC, CMP, LIPASE #### [facility] [address] [place] [address] [place] Nitrite Test strip Ql (U)Ord ered By: Joe Davis on 03-12-2023 Nitrite Ql (U) Negative Negative [facility] Protein Auto test strip (U) [Mass/Vol]Ordered By: Joe Davis on 03-12-2023 Protein (U) [Mass/Vol] Negative Negative [facility] Serum or plasma high density lipoprotein (HDL) cholesterol measurementOrdered By: Joe Davis on 03-12-2023 Cholesterol in HDL [Mass/Vol] 52 mg/dL Normal 23-92 [facility] Comment on above: HDL CHOL ATP-III CLA SSIFICATION Cardiovascular RiskHDL > or equal to 60 mg/dL LOWHDL < 40 mg/dL HIGH Result Comment: HDL CHOL ATP-III CLASSIFICATION Cardiovascular Risk HDL > or equal to 60 mg/dL LOW HDL < 40 mg/dL HIGH Performed By: #### C BC, CMP, LIPASE #### [address] Serum or plasma total choles terol/high density lipoprotein (HDL) cholesterol mass ratOrdered By: Joe Davis on 03-12-2023 Cholesterol.total/Judy sterol in HDL [Mass ratio] 3.1 {ratio} Normal <5.0 [facility] Comment on above: Performed By: #### C BC, CMP, LIPASE #### [address] Specific gravity Auto test s trip (U) [Rel density]Ordered By: Joe Davis on 03-12-2023 Specific gravity (U) [Rel density] 1.006 1.001-1.03 0 [facility] Squamous epithelial cells de tection in urine sediment by light microscopyOrdered By: Joe Davis on 03-12-2023 Epithelial cells.squamous LM Ql (Urine sed) 0-1 [HPF] 0-2 [facility] Thyroid Stim Hormone w/Rflxo n 03-12-2023 Thyroid Stim Hormone w/Rflx 0.91 u[iU]/mL Normal 0.45-5.33 [facility] Comment on above: Performed By: #### C BC, CMP, LIPASE #### [facility] [address] [place] [address] Thyrotropin [Units/volume] i n Serum or PlasmaOrdered By: Joe Davis on 03-12-2023 TSH Qn 0.91 m[IU]/L 0.45-5.33 [facility] Triglyceride [Mass/volume] i n Serum or PlasmaOrdered By: Joe Davis on 03-12-2023 Triglyceride [Mass/Vol] 76 mg/dL 0-149 [facility] Comment on above: TRIG ATP III [...] negative bacilli - 2 Days PERFORMED BY: [place] [address] PATHOLOGIST RAW STOCK MACHINE LOADER GATO PEÑA M.D. Normal [facility] Comment on above: Performed By: #### C BC, CMP, LIPASE #### [address] Urine bacteria detection by automated methodOrdered By: Joe Davis on 03-12-2023 Bacteria Auto Ql (U) None seen None Seen [facility] Urine clarity by refractomet ry automatedOrdered By: Joe Davis on 03-12-2023 Clarity Refractometry automated (U) Clear Clear [facility] Urine culture routineOrdered By: Joe Davis on 03-12-2023 Bacteria identified Cx Nom (U) bacilli - 2 Days [facility] Urine glucose measurement by automated test strip (mass/volume)Ordered By: Joe Davis on 03-12-2023 Glucose Auto test strip (U) [Mass/Vol] Normal mg/dL Normal [facility] Urine hemoglobin detection b y automated test stripOrdered By: Joe Davis on 03-12-2023 Hemoglobin Auto test strip Ql (U) Negative Negative [facility] Urine leukocyte esterase det ection by automated test stripOrdered By: Joe Davis on 03-12-2023 Leukocyte esterase Auto test strip Ql (U) 4+ Negative [facility] Urine pH measurement by auto mated test stripOrdered By: Joe Davis on 03-12-2023 pH (U) 7.0 [pH] Normal 5.0-9.0 [facility] Comment on above: Order Comment: Name Collection Type:: Clean-Voided Midstream Performed By: #### C UU, ADDONUAPLUS #### [facility] [address] [place] [address] Urobilinogen Auto test strip (U) [Mass/Vol]Ordered By: Joe Davis on 03-12-2023 Urobilinogen (U) [Mass/Vol] Normal mg/dL Normal [facility] Vitamin D 25 Hydroxy Totalon 03-12-2023 Vitamin D 25 Hydroxy Total 28.1 ng/mL Low 30-100 [facility] Comment on above: Result Comment: EDUARDO MIN D STATUS 25(OH)VITAMIN D RANGE (ng/mL) Deficient <20 Insufficient 20 to <30 Sufficient 30 to 100 Reference: Renée Woodward, Francisco CARPIO, et al. Evaluation,treatment, and prevention of vitamin D deficiency; an Endocrine Society clinical practice guideline. JCEM. 2010; 96(7):1911-30. PERFORMED BY: [place] [address] PATHOLOGIST RAW STOCK MACHINE LOADER GATO PEÑA M.D. Performed By: #### C BC, CMP, LIPASE #### [facility] [address] [place] [address] Vitamin D+Metabolites [Mass/ volume] in Serum or PlasmaOrdered By: Joe Davis on 03-12-2023 Vitamin D+Metabolites [Mass/Vol] 28.1 ng/mL 30-100 [facility] Comment on above: VITAMIN D STATUS 25( [place])VITAMIN D RANGE (ng/mL) Deficient <20 Insufficient 20 to <30Sufficient 30 to 100Reference: Renée Woodward, Francisco CARPIO, et al. Evaluation,treatment, and prevention of vitamin D deficiency; an Endocrine Society clinical practice guideline. JCEM. 2010; 96(7):1911-30. [place] [Moles/volume] in Se rum or PlasmaOrdered By: NON STAFF on 03-11-2023 [place] [Moles/Vol] 0.50 mmol/L Low 0.60-1.20 [facility] Comment on above: Order Comment: Name Collection Type:: Clean-Voided Midstream Result Comment: PERF ORMED BY: [facility] [address] [place] [address] PATHOLOGIST RAW STOCK MACHINE LOADER GATO PEÑA M.D. Performed By: #### C UU, ADDONUAPLUS #### [facility] [address] [place] [address] [place] Cult,Genitalon 02-03-2023 Cult,Genital Specimen Description .VAGINA Culture ENTERIC TERRANCE PRESENT STREPTOCOCCI, BETA HEMOLYTIC GROUP B ISOLATED NORMAL URO-GENITAL TERRANCE LIGHT GROWTH NEGATIVE FOR NEISSERIA GONORRHOEAE Report Status FINAL 02/03/2023 [facility] Comment on above: Performed By: #### G EC #### [facility] [address] [place] [address] [employer] Furn[employer] Expediter: Tej Locke MD [facility] [address] [place] [address] [place] [address] Rem[employer] Furnace Expediter: Emery Miller MD Vaginitis DNA Probeon 2022 Rosa Negative [facility] Comment on above: Result Comment: for Rosa sp. Method of testing is a DNA probe intended for detection and identification of Rosa species, Gardnerella vaginalis, and Trichomonas vaginalis nucleic acid in vaginal fluid specimens from patients with symptoms of vaginitis/vaginosis. Performed By: #### V AGP #### [employer] [place] [id number] [place] [address] Remelt Furnace Expediter: Tej Locke MD [facility] [address] [place] [address] [place] [address] Remelt Furnace Expediter: Emery Miller MD Gardnerella Negative [facility] Comment on above: Result Comment: for Gardnerella vaginalis Performed By: #### V AGP #### [facility] [address] [place] [address] [employer] Expediter: Tej Locke MD [facility] [address] [place] [address] Remelt Furnace Expediter: Emery Miller MD Trichomonas Negative Normal NEG [facility] Comment on above: Result Comment: for Trichomonas Vaginalis Performed By: #### V AGP #### [facility] [address] [place] [address] [employer] Furnace Expediter: Tej Locke MD [facility] [address] [place] [address] [employer] Furn[employer] Expediter: Emery Miller MD Vaginitis DNA Probeon 2022 Source .VAGINAL SWAB Normal [facility] Comment on above: Performed By: #### V AGP #### [facility] [address] [place] [address] [employer] Furn[employer] Expediter: Tej Locke MD [facility] [address] [place] [address] [employer] Furn[employer] Expediter: Emery Miller MD XR shoulder RT min 2V*on XR shoulder RT min 2V* [facility] [employer] Other XR shoulder RT min 2V* [facility] Main [facility] [employer] Other XR shoulder RT min 2V* [address] [place] [address] [employer] Other XR shoulder RT min 2V* [place] [address] [facility] [employer] Other XR shoulder RT min 2V* XRay Report N [facility] [employer] Other XR shoulder RT min 2V* Signed No rt [employer] Other XR shoulder RT min 2V* Patient: Mary Anne Almeida MR#: [id number] [facility] [employer] Other XR shoulder RT min 2V* 250 No rt [employer] Other XR shoulder RT min 2V* : 1955 Acct:[id number] [email or web address] Other XR shoulder RT min 2V* Age/Sex: 67 / F A DM Date: 12/12/22 [email or web address] Other XR shoulder RT min 2V* Loc: [facility] [email or web address] Other XR shoulder RT min 2V* Attending Dr: Neftali Adame DO [email or web address] Other XR shoulder RT min 2V* Copies to: Emory Adame DO [email or web address] Other XR shoulder RT min 2V* Ordering Provider : Emory Adame DO [email or web address] Other XR shoulder RT min 2V* Date of Service: 12/12/22 [email or web address] Other XR shoulder RT min 2V* XR/XR shoulder RT min 2V*: Other closed displaced fracture of proximal [email or web address] Other XR shoulder RT min 2V* end of right hum [email or web address] Other XR shoulder RT min 2V* XR shoulder RT mi n 2V* 12/12/2022 1:42 PM [email or web address] Other XR shoulder RT min 2V* SIGNS AND SYMPTOM S: Status post right proximal humerus fracture, hardware fixation, follow-up [email or web address] Other XR shoulder RT min 2V* PROTOCOL: Frontal , Grashey, and scapular Y views of the right shoulder. [email or web address] Other XR shoulder RT min 2V* COMPARISON: 10/31/2022 [email or web address] Other XR shoulder RT min 2V* FINDINGS: No rtTHE EMPTY [employer] Other XR shoulder RT min 2V* There is hardware fixation of the right humeral head and proximal humeral shaft. There is no [email or web address] Other XR shoulder RT min 2V* hardware complica tion. 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 The acromioclavicular joint and glenohumeral joint are preserved. The visualized right [email or web address] Other XR shoulder RT min 2V* hemithorax is la ssly intact. [email or web address] Other XR shoulder RT min 2V* 7 XR/XR shoulder RT min 2V* [email or web address] Other XR shoulder RT min 2V* IMPRESSION: N [employer] Other XR shoulder RT min 2V* hardware complication. [email or web address] Other XR shoulder RT min 2V* There are bony fr agments within the rotator interval which have migrated the prior exam. [email or web address] Other XR shoulder RT min 2V* Impression dictat ed by: Janis Jett M.D.12/12/2022 4:03 PM [email or web address] Other XR shoulder RT min 2V* Dictation Locatio n: RADIO-PC-12 [email or web address] Other XR shoulder RT min 2V* Transcribed By: Alpa DUVALL 12/12/22 1603 [email or web address] Other XR shoulder RT min 2V* Dictated By: Janis Jett II, MD 12/12/22 1600 [email or web address] Other XR shoulder RT min 2V* Signed By: No rt [employer] Other XR shoulder RT min 2V* 12/12/22 1603 [email or web address] Other XR shoulder RT min 2V*on XR shoulder RT min 2V* [facility] [email or web address] Other XR shoulder RT min 2V* [facility] [email or web address] Other XR shoulder RT min 2V* [address] [facility] [email or web address] Other XR shoulder RT min 2V* [place] [address] [email or web address] Other XR shoulder RT min 2V* XRay Report N [facility] [employer] Other XR shoulder RT min 2V* Signed No rt [employer] Other XR shoulder RT min 2V* Patient: Mary Anne Almeida MR#: [id number] [place] [employer] Other XR shoulder RT min 2V* 250 No rt [employer] Other XR shoulder RT min 2V* : 1955 Acct:[id number] [email or web address] Other XR shoulder RT min 2V* Age/Sex: 67 / F A DM Date: 10/31/22 [email or web address] Other XR shoulder RT min 2V* Loc: [facility] Room: T ype: [facility] [email or web address] Other XR shoulder RT min 2V* Attending Dr: Neftali Adame DO [email or web address] Other XR shoulder RT min 2V* Copies to: Emory Adame DO [email or web address] Other XR shoulder RT min 2V* Ordering Provider : Emory Adame DO [email or web address] Other XR shoulder RT min 2V* Date of Service: 10/31/22 [email or web address] Other XR shoulder RT min 2V* XR/XR shoulder RT min 2V*: Other closed displaced fracture of proximal [email or web address] Other XR shoulder RT min 2V* end of right hum [email or web address] Other XR shoulder RT min 2V* RIGHT SHOULDER - - 3 views [email or web address] Other XR shoulder RT min 2V* CLINICAL HISTORY: ORIF right humerus [email or web address] Other XR shoulder RT min 2V* COMPARISON: Right shoulder 10/03/2022 [email or web address] Other XR shoulder RT min 2V* FINDINGS: No rt [employer] Other XR shoulder RT min 2V* Hardware fixation is seen involving the right humeral neck without evidence of hardware [email or web address] Other XR shoulder RT min 2V* complication. Fragmentation versus callus formation is noted involving the greater tubercle [email or web address] Other XR shoulder RT min 2V* possibly represen ting healing response. [email or web address] Other XR shoulder RT min 2V* 1 XR/XR shoulder RT min 2V* [email or web address] Other XR shoulder RT min 2V* IMPRESSION: N [employer] Other XR shoulder RT min 2V* FRAGMENTATION PETER HARRY CALCIFIED FORMATION IS NOTED INVOLVING THE GREATER TUBERCLE POSSIBLY [email or web address] Other XR shoulder RT min 2V* REPRESENTING HEAL ING RESPONSE. FOLLOW-UP IS RECOMMENDED.. [email or web address] Other XR shoulder RT min 2V* Impression dictat ed by: Yandel Lees Jr., D.O.10/31/2022 4:06 PM [email or web address] Other XR shoulder RT min 2V* Dictation Locatio n: RADIO-PC-08 [email or web address] Other XR shoulder RT min 2V* Transcribed By: Alpa DUVALL 10/31/22 1603 [email or web address] Other XR shoulder RT min 2V* Dictated By: Isrrael Lees Jr, DO 10/31/22 1602 [email or web address] Other XR shoulder RT min 2V* Signed By: No rt [employer] Other XR shoulder RT min 2V* 10/31/22 1606 [email or web address] Other LITHIUMon 10-27-2022 [place] (Eskalith(R)), Serum 0.9 mmol/L Normal 0.5-1.2 [facility] Comment on above: Result Comment: A co ncentration of 0.5-0.8 mmol/L is advised for long-term use; concentrations of up to 1.2 mmol/L may be necessary during acute treatment. Detection Limit = 0.1 <0.1 indicates None Detected Performed By: #### L ITHIUM #### [facility] [address] [place] [address] Dr. Beny Johnson CREATININEon 10-26-2022 Creatinine [Mass/Vol] 1.43 mg/dL Critically high 0.55-1.02 [facility] Comment on above: Performed By: #### T SH, CREA #### [facility] [address] [place] [address] Dr. Beny Johnson EGFR-AF CANADIAN 45 mL/min/1.73m2 Critically low >=60 [facility] Comment on above: Performed By: #### T SH, CREA #### [facility] [address] [place] [address] Dr. Beny Johnson EGFR-NON AF CANADIAN 37 mL/min/1.73m2 Critically low >=60 [facility] Comment on above: Performed By: #### T SH, CREA #### [facility] [address] [place] [address] Dr. Beny Johnson TSHon 10-26-2022 TSH 1.213 uIU/mL Normal 0.358-3.74 0 [facility] Comment on above: Performed By: #### T SH, CREA #### [facility] [address] [place] [address] Dr. Beny Johnson Hematocrit Auto (Bld) [Volum e fraction]Ordered By: Emory Adame on 09-13-2022 Hematocrit (Bld) [Volume fraction] 36.3 % 34.0-46.4 [facility] Hemoglobin [Mass/volume] in BloodOrdered By: Emory Adame on 09-13-2022 Hemoglobin (Bld) [Mass/Vol] 11.6 g/dL 11.8-15.4 [facility] Basophils Auto (Bld) [#/Vol] Ordered By: Emory Adame on 09-11-2022 Basophils (Bld) [#/Vol] 0.1 10*3/uL 0.0-0.2 [facility] Basophils/100 WBC Auto (Bld) Ordered By: Emory Adame on 09-11-2022 Basophils/100 WBC (Bld) 0.9 % . [facility] Calcium [Mass/volume] in Ser um or PlasmaOrdered By: Emory Adame on 09-11-2022 Calcium [Mass/Vol] 10.4 mg/dL 8.6-10.3 [facility] Carbon dioxide, total [Moles /volume] in Serum or PlasmaOrdered By: Emory Adame on 09-11-2022 CO2 [Moles/Vol] 22.2 mmol/L 21.0-31.0 [facility] Chloride [Moles/volume] in S kishan or PlasmaOrdered By: Emory Adame on 09-11-2022 Chloride [Moles/Vol] 113 mmol/L 98-107 [facility] Creatinine [Mass/volume] in Serum or PlasmaOrdered By: Emory Adame on 09-11-2022 Creatinine [Mass/Vol] 1.06 mg/dL 0.60-1.20 [facility] Eosinophils Auto (Bld) [#/Vo l]Ordered By: Emory Adame on 09-11-2022 Eosinophils (Bld) [#/Vol] 0.1 10*3/uL 0.0-0.45 [facility] Eosinophils/100 WBC Auto (Bl d)Ordered By: Emory Adame on 09-11-2022 Eosinophils/100 WBC (Bld) 1.8 % . [facility] Erythrocyte distribution wid th Auto (RBC) [Ratio]Ordered By: Emory Adame on 09-11-2022 Erythrocyte distribution width (RBC) [Ratio] 13.8 % 11.9-15.3 [facility] Glucose [Mass/volume] in Ser um or PlasmaOrdered By: Emory Adame on 09-11-2022 Glucose [Mass/Vol] 113 mg/dL 70-100 [facility] Comment on above: ADA recommended refe rence rangeRandom Glucose Reference Range is dependent on time and content of last meal. Glucose of more than 200 mg/dL in a nonstressed, ambulatory subject supports the diagnosis of Diabetes Mellitus. Hematocrit Auto (Bld) [Volum e fraction]Ordered By: Emory Adame on 09-11-2022 Hematocrit (Bld) [Volume fraction] 36.8 % 34.0-46.4 [facility] Hemoglobin [Mass/volume] in BloodOrdered By: Emory Adame on 09-11-2022 Hemoglobin (Bld) [Mass/Vol] 12.2 g/dL 11.8-15.4 [facility] Leukocytes [#/volume] correc cornelia for nucleated erythrocytes in Blood by Automated counOrdered By: Emory Adame on 09-11-2022 WBC corrected for nucl RBC Auto (Bld) [#/Vol] 5.9 10*3/uL 3.8-11.6 [facility] Lymphocytes Auto (Bld) [#/Vo l]Ordered By: Emory Adame on 09-11-2022 Lymphocytes (Bld) [#/Vol] 1.1 10*3/uL 1.00-4.8 [facility] Lymphocytes/100 WBC Auto (Bl d)Ordered By: Emory Adame on 09-11-2022 Lymphocytes/100 WBC (Bld) 19.4 % . [facility] MCH Auto (RBC) [Entitic mass ]Ordered By: Emory Adame on 09-11-2022 MCH (RBC) [Entitic mass] 31.8 pg 24.7-34.3 [facility] MCHC Auto (RBC) [Mass/Vol]Or dered By: Emory Adame on 09-11-2022 MCHC (RBC) [Mass/Vol] 33.2 g/dL 32.0-35.0 [facility] MCV Auto (RBC) [Entitic vol] Ordered By: Emory Adame on 09-11-2022 MCV (RBC) [Entitic vol] 95.7 fL 80-100 [facility] Monocytes Auto (Bld) [#/Vol] Ordered By: Emory Adame on 09-11-2022 Monocytes (Bld) [#/Vol] 0.5 10*3/uL 0.0-0.8 [facility] Monocytes/100 WBC Auto (Bld) Ordered By: Emory Aadme on 09-11-2022 Monocytes/100 WBC (Bld) 8.0 % . [facility] Neutrophils Auto (Bld) [#/Vo l]Ordered By: Emory Adame on 09-11-2022 Neutrophils (Bld) [#/Vol] 4.1 10*3/uL 1.8-7.7 [facility] Neutrophils/100 WBC Auto (Bl d)Ordered By: Emory Adame on 09-11-2022 Neutrophils/100 WBC (Bld) 69.9 % . [facility] No Panel InformationOrdered By: Emory Adame on 09-11-2022 Estimated GFR (CKD-EPI) 58.298 mL/Min [facility] Creatinine Clearance (Chem N/A [facility] Nucleated erythrocytes [Pres ence] in Blood by Automated countOrdered By: Emory Adame on 09-11-2022 Nucleated RBC Auto Ql (Bld) 0.1 /100{WBC} 0-0.5 [facility] Platelet mean volume Auto (B ld) [Entitic vol]Ordered By: Emory Adame on 09-11-2022 Platelet mean volume (Bld) [Entitic vol] 8.1 fL 6.3-10.7 [facility] Platelets Auto (Bld) [#/Vol] Ordered By: Emory Adame on 09-11-2022 Platelets (Bld) [#/Vol] 303 10*3/uL 150-450 [facility] Potassium [Moles/volume] in Serum or PlasmaOrdered By: Emory Adame on 09-11-2022 Potassium [Moles/Vol] 4.8 mmol/L 3.5-5.1 [facility] RBC Auto (Bld) [#/Vol]Ordere d By: Emory Adame on 09-11-2022 RBC (Bld) [#/Vol] 3.85 10*6/uL 3.60-5.00 [facility] Serum or plasma anion gap de terminationOrdered By: Emory Adame on 09-11-2022 Anion gap [Moles/Vol] 11.6 mmol/L 6.0-15.0 [facility] Sodium [Moles/volume] in Ser um or PlasmaOrdered By: Emory Adame on 09-11-2022 Sodium [Moles/Vol] 142 mmol/L 136-145 [facility] Urea nitrogen [Mass/volume] in Serum or PlasmaOrdered By: Emory Adame on 09-11-2022 Urea nitrogen [Mass/Vol] 24 mg/dL 7-25 [facility] WBC Auto (Bld) [#/Vol]Ordere d By: Emory Adame on 09-11-2022 WBC (Bld) [#/Vol] 5.9 10*3/uL 3.8-11.6 [facility] XR shoulder RT min 2V*on XR shoulder RT min 2V* [facility] [employer] Other XR shoulder RT min 2V* [facility] [employer] Other XR shoulder RT min 2V* [address] [place] [address] [employer] Other XR shoulder RT min 2V* [place] [address] [email or web address] Other XR shoulder RT min 2V* XRay Report N [facility] [employer] Other XR shoulder RT min 2V* Signed No rt [employer] Other XR shoulder RT min 2V* Patient: Mary Anne Almeida MR#: [id number] [place] [employer] Other XR shoulder RT min 2V* 250 No rt [employer] Other XR shoulder RT min 2V* : 1955 Acct:[id number] [email or web address] Other XR shoulder RT min 2V* Age/Sex: 66 / F A DM Date: 09/10/22 [email or web address] Other XR shoulder RT min 2V* Loc: [facility] Room: T ype: REG CLI [email or web address] Other XR shoulder RT min 2V* Attending Dr: Neftali Adame DO [email or web address] Other XR shoulder RT min 2V* Copies to: Emory Adame DO [email or web address] Other XR shoulder RT min 2V* Ordering Provider : Emory Adame DO [email or web address] Other XR shoulder RT min 2V* Date of Service: 09/10/22 [email or web address] Other XR shoulder RT min 2V* XR/XR shoulder RT min 2V*: Acute pain of right shoulder [email or web address] Other XR shoulder RT min 2V* RIGHT SHOULDER - - 3 views [email or web address] Other XR shoulder RT min 2V* CLINICAL HISTORY: Proximal right humerus fracture continued pain. [email or web address] Other XR shoulder RT min 2V* COMPARISON: Right shoulder 09/06/2022 [email or web address] Other XR shoulder RT min 2V* FINDINGS: No [employer] Other XR shoulder RT min 2V* Greater tuberosit y fracture is once again demonstrated grossly unchanged in alignment when compared [email or web address] Other XR shoulder RT min 2V* to the prior stud y. Sclerosis is seen involving the fracture site suggestive of healing response. AC [email or web address] Other XR shoulder RT min 2V* joint appears intact. [email or web address] Other XR shoulder RT min 2V* 3 XR/XR shoulder RT min 2V* [email or web address] Other XR shoulder RT min 2V* IMPRESSION: N [facility] [employer] Other XR shoulder RT min 2V* SCLEROSIS IS SEEN AT THE GREATER TUBEROSITY FRACTURE SITE SUGGESTIVE OF HEALING RESPONSE. NO CHANGE [email or web address] Other XR shoulder RT min 2V* IN ALIGNMENT. [email or web address] Other XR shoulder RT min 2V* Impression dictat ed by: Yandel Lees Jr., Mary09/10/2022 12:18 PM [email or web address] Other XR shoulder RT min 2V* Dictation Locatio n: RADIO-PC-12 [email or web address] Other XR shoulder RT min 2V* Transcribed By: Alpa DUVALL 09/10/22 1218 [email or web address] Other XR shoulder RT min 2V* Dictated By: Isrrael Lees Jr, 09/10/22 1215 [email or web address] Other XR shoulder RT min 2V* Signed By: No rt [employer] Other XR shoulder RT min 2V* 09/10/22 1210 [email or web address] Other XR SHOULDER RT 1 Von 09-06-2 [...] HÉCTOR HO Date: 2022-09-06 15:02 Normal [facility] XR SHOULDER RT 1 V EXAM: [...] HÉCTOR HO Date: 2022-09-06 15:01 Normal [facility] XR SHOULDER RT 1 V EXAM: [...] HÉCTOR HO Date: 2022-09-06 15:00 Normal [facility] XR SHOULDER RT 1 V EXAM: XR SHOULDER RT 1 V HISTORY: Pain ; postreduction imaging COMPARISON: Prior shoulder x-rays from same date TECHNIQUE: FINDINGS: Humeral head is positioned inferior to the glenoid. Stable displaced fracture from the greater tuberosity. IMPRESSION: 1. Persistent anterior inferior glenohumeral dislocation and greater tuberosity fracture. Electronically authenticated by: HÉCTOR HO Date: 2022-09-06 14:56 Normal [facility] XR SHOULDER RT 1 V EXAM: [...] HÉCTOR HO Date: 2022-09-06 14:55 Normal [facility] LITHIUMon 08-23-2022 [place] (Eskalith(R)), Serum 0.9 mmol/L Normal 0.5-1.2 [facility] Comment on above: Result Comment: A co ncentration of 0.5-0.8 mmol/L is advised for long-term use; concentrations of up to 1.2 mmol/L may be necessary during acute treatment. Detection Limit = 0.1 <0.1 indicates None Detected Performed By: #### L ITHIUM ####[facility] [address] [place], [place] [address]WoLore Johnson CREATININEon 08-22-2022 Creatinine [Mass/Vol] 1.17 mg/dL Critically high 0.55-1.02 [facility] Comment on above: Performed By: #### C ELA ####[facility] [address] [place], [place] [address]Jd. Beny Johnson EGFR-AF CANADIAN 56 mL/min/1.73m2 Critically low >=60 [facility] Comment on above: Performed By: #### C ELA ####[facility] [address] [place], [place] [address]Ox. Beny Johnson EGFR-NON AF CANADIAN 46 mL/min/1.73m2 Critically low >=60 [facility] Comment on above: Performed By: #### C ELA ####[facility] [address] [place], [place] [address]Qf. Beny Johnson Herpes 1+2 Molecularon 08-17 HSV-1, NAAT Negative Normal NEG [facility] [place] Comment on above: Result Comment: HSV- 1 DNA not detected by nucleic acid amplification Performed By: #### H SVDNA #### [address] [address] [employer]: Tej Locke MD [facility] [address] [place] [address] Dr. [place] [phone] [employer]: Emery Miller MD HSV-2, NAAT Negative Normal NEG [facility] [place] Comment on above: Result Comment: HSV- 2 DNA not detected by nucleic acid amplification Performed By: #### H SVDNA #### [address] [address] [employer]: Tej Locke MD [facility] [address] [place] [address] Dr. [place] [phone] [employer]iter: Emery Miller MD Vaginitis DNA Probeon 2022 Rosa Negative Normal NEG [facility] [place] Comment on above: Result Comment: for Rosa sp. Method of testing is a DNA probe intended for detection and identification of Rosa species, Gardnerella vaginalis, and Trichomonas vaginalis nucleic acid in vaginal fluid specimens from patients with symptoms of vaginitis/vaginosis. Performed By: #### V AGP #### [address] [id number] [employer]: Tej Locke MD [address] [place], [place] [phone] [employer]: Emery Miller MD Gardnerella Negative Normal [facility] Comment on above: Result Comment: for Gardnerella vaginalis Performed By: #### V AGP #### [address] [phone] [employer]: Tej Locke MD [address] [place] [phone] [employer]: Emery Miller MD Trichomonas Negative [facility] Comment on above: Result Comment: for Trichomonas Vaginalis Performed By: #### V AGP #### [address] [address] [employer]: Tej Locke MD [address] [place] [address] [employer]: Emery Miller MD Cytologyon 08-16-2022 Cytology (NOTE) INTERPRETATION Cervical material, (ThinPrep vial, Imaging-assisted review): Specimen Adequacy: Satisfactory for evaluation. Descriptive Diagnosis: Negative for intraepithelial lesion or malignancy. Athlete Manager: ROSY ARCHIBALD(ASCP) Electronically Signed Out /08/24/2022 Source: A: Cervical material, (ThinPrep vial, Imaging-assisted review) Clinical History Hysterectomy Z12.4 Encounter for screening for malignant neoplasm of cervix GYNECOLOGIC CYTOLOGY REPORT Patient Name: GAIL ALMEIDA [facility] Rec: [id number] Path Number: [id number] [facility] ANATOMIC PATHOLOGY [address] [place] [phone] Normal [facility] [place] Comment on above: Performed By: #### P PPVP #### [address] [address] [employer]: Tej Locke MD Herpes 1+2 Molecularon 08-16 Source: .VULVA Normal [facility] [place] Comment on above: Performed By: #### H SVDNA #### [facility] [address] [place], [place] [phone] [employer]: Tej Locke MD [facility] [address] [place], [place] [phone] [employer]iter: Emery Miller MD Vaginitis DNA Probeon 2022 Source .VAGINAL SWAB Normal [facility] Comment on above: Performed By: #### V AGP #### [facility] [address] [place] [address] [employer]: Tej Locke MD [facility] [address] [place] [address] [employer]: Emery Miller MD LITHIUMon 08-04-2022 [place] (Eskalith(R)), Serum 1.1 mmol/L Normal 0.5-1.2 [facility] Comment on above: Result Comment: A co ncentration of 0.5-0.8 mmol/L is advised for long-term use; concentrations of up to 1.2 mmol/L may be necessary during acute treatment. Detection Limit = 0.1 <0.1 indicates None Detected Performed By: #### L ITHIUM ####[facility] [address] [place] [address]Dr. Beny Alex CREATININEon 08-03-2022 Creatinine [Mass/Vol] 1.36 mg/dL Critically high 0.55-1.02 [facility] Comment on above: Performed By: #### C ELA TSH ####[facility] [address] [place] [id number]. Beny Johnson EGFR-AF CANADIAN 47 mL/min/1.73m2 Critically low >=60 [facility] Comment on above: Performed By: #### C ELA, TSH ####[facility] [address] [place] [address]Dr. Beny Johnson EGFR-NON AF CANADIAN 39 mL/min/1.73m2 Critically low >=60 [facility] Comment on above: Performed By: #### Mikala MAHMOOD, TSH ####[facility] [address] [place], [place] [address]KyLore Johnson TSHon 08-03-2022 TSH 0.901 uIU/mL Normal 0.358-3.74 0 [facility] Comment on above: Performed By: #### Mikala MAHMOOD, TSH ####[facility] [address] [place], [place] [address]Fb. Beny Johnson Outside Recordson 10-25-2021 Outside Records [id number]: 127 Normal [facility] Consent for Procedure/Surger yon 10-13-2021 Consent for Procedure/Surgery [id number] :127 Normal [facility] Creatinineon 08-01-2021 Creatinine [Mass/Vol] 0.98 mg/dL High 0.50 - 0.90 mg/dL [facility] GFR >60 >60 mL/min [facility] GFR Non- 57 mL/min Low >60 [facility] Interpretation and review of laboratory results Abnormal [facility] - Chemistry and C hemistry - challengeon 08-01-2021 GFR/1.73 sq M.predicted MDRD (S/P/Bld) [Vol rate/Area] [facility] Comment on above: Average GFR for 60-6 9 years old: 85 mL/min/1.73sq m Chronic Kidney Disease: <60 mL/min/1.73sq m Kidney failure: <15 mL/min/1.73sq m eGFR calculated using average adult body mass. Additional eGFR calculator available at: http://www.[employer].scPharmaceuticals/multiple_crcl_2012.htm Stage 1: Some kidney damage normal GFR [...] mammography is recommended. OVERALL ASSESSMENT - BENIGN [facility] EXAMINATION: MRI OF THE [...] signal along the mediastinum is likely benign. [facility] Radiology Study observation (narrative) [employer] Work Phone: MRI BREAST BILATERAL W CONTR ASTOrdered By: Dee Soto on 08-01-2021 [employer] Work Phone: [facility] ERYN DIGITAL DIAGNOSTIC BILATERALOrdered By: She Spencer on 11-11-2020 1. No mammographic evidence of malignancy. BIRADS: BIRADS - CATEGORY 2 Benign Findings. Normal interval follow-up is recommended in 12 months. OVERALL ASSESSMENT - BENIGN A letter of notification will be sent to the patient regarding the results. [employer] recommends annual mammograms for women 40 years and older. [employer] Phone: EXAMINATION: DIAGNOS TIC DIGITAL BILATERAL BREASTS [...] dated June 08, 2020 is not visible. [employer] Phone: [place], [place] Incoming Radiant Results From [employer] - 11/11/2020 10:09 PM EDT EXAMINATION: DIAGNOSTIC [...] to the patient regarding the results. [employer] recommends annual mammograms for women 40 years and older. [employer] Phone: [employer] Phone: [place] Levelon 07-21-2020 [place] Date Last Dose NOT REPORTED [facility] Phone: [place] Dose Amount NOT REPORTED [facility] [employer] Work Phone: [place] Dose Time NOT REPORTED [facility] Phone: [place] Lvl 0.9 mmol/L 0.6 - 1.2 mmol/L [facility] Phone: Lipid Panelon 07-18-2020 Cholesterol [Mass/Vol] 151 mg/dL <200 [facility] [employer] Phone: Comment on above: Cholesterol Guidelines: <200 Desirable 200-240 Borderline >240 Undesirable Cholesterol in HDL [Mass/Vol] 42 mg/dL >40 [facility] Phone: Comment on above: HDL Guidelines: <40 Undesirable 40-59 Borderline >59 Desirable Cholesterol in LDL [Mass/Vol] 79 mg/dL 0 - 130 mg/dL [facility] [employer] Phone: Comment on above: LDL Guidelines: <100 Desirable 100-129 Near to/above Desirable 130-159 Borderline >159 Undesirable Direct (measured) LDL and calculated LDL are not interchangeable tests. Cholesterol in VLDL [Mass/Vol] NOT REPORTED 1 - 30 mg/dL [facility] Phone: Cholesterol.total/Judy sterol in HDL [Mass ratio] 3.6 {ratio} <5 [facility] Phone: Interpretation and review of laboratory results Abnormal [facility] Phone: Triglyceride [Mass/Vol] 151 mg/dL High <150 [facility]: Comment on above: Triglyceride Guidelines: <150 Desirable 150-199 Borderline 200-499 High >499 Very high Based on AHA Guidelines for fasting triglyceride, March 2012. [place] Levelon 07-14-2020 Interpretation and review of laboratory results Abnormal [facility] Work Phone: [place] Date Last Dose NOT REPORTED [facility] [employer] Work Phone: [place] Dose Amount NOT REPORTED [facility] [employer] Work Phone: [place] Dose Time NOT REPORTED [facility] [employer] Phone: [place] Lvl 1.6 mmol/L Critically high 0.6 - 1.2 mmol/L [facility] [employer] Work Phone: CBC with Diffon 07-09-2020 Abs. Basophil 0.06 k/uL Normal 0.00-0.20 [facility] Comment on above: Performed By: #### U MICAO, UAX, CDP, CP, LIPRF #### [address] [address] [employer]: Tej Locke MD Abs.Imm.Granulocyte <0.03 Normal 0.00-0.30 [facility] Comment on above: Performed By: #### U MICAO, UAX, CDP, CP, LIPRF #### [address] [address] [employer]iter: Tej Locke MD Abs.Neutrophil (Seg) 2.66 k/uL Normal 1.50-8.10 [facility] Comment on above: Performed By: #### U MICAO, UAX, CDP, CP, LIPRF #### [address] [address] [employer]: Tej Locke MD Basophils/100 WBC (Bld) 1 % Normal 0-2 [facility] [facility] [place] [facility] Comment on above: Performed By: #### U MICAO, UAX, CDP, CP, LIPRF #### [address] [address] [employer] Expediter: Tej Locke MD Eosinophils (Bld) [#/Vol] 0.22 10*3/uL Normal 0.00-0.44 [facility] Comment on above: Performed By: #### U MICAO, UAX, CDP, CP, LIPRF #### [address] [address] [employer]iter: Tej Locke MD Eosinophils/100 WBC (Bld) 4 % Normal 1-4 [facility] Comment on above: Performed By: #### U MICAO, UAX, CDP, CP, LIPRF #### [address] [address] [employer]iter: Tej Locke MD Erythrocyte distribution width (RBC) [Ratio] 12.7 % Normal 11.8-14.4 [facility] Comment on above: Performed By: #### U MICAO, UAX, CDP, CP, LIPRF #### [address] [address] [employer]: Tej Locke MD Hematocrit (Bld) [Volume fraction] 43.2 % Normal 36.3-47.1 [facility] Comment on above: Performed By: #### U MICAO, UAX, CDP, CP, LIPRF #### [address] [address] [employer]iter: Tej Locke MD Hemoglobin (Bld) [Mass/Vol] 12.6 g/dL Normal 11.9-15.1 [facility] Comment on above: Performed By: #### U MICAO, UAX, CDP, CP, LIPRF #### [address] [address] [employer]: Tej Locke MD Immature granulocytes/100 WBC (Bld) 0 % Normal 0 [facility] Comment on above: Performed By: #### U MICAO, UAX, CDP, CP, LIPRF #### [address] [address] [employer]iter: Tej Locke MD Lymphocytes (Bld) [#/Vol] 1.92 10*3/uL Normal 1.10-3.70 [facility] Comment on above: Performed By: #### U MICAO, UAX, CDP, CP, LIPRF #### [address] [address] [employer]: Tej Locke MD Lymphocytes/100 WBC (Bld) 36 % Normal 24-43 [facility] Comment on above: Performed By: #### U MICAO, UAX, CDP, CP, LIPRF #### [place] [address] [employer]: Tej Locke MD MCH (RBC) [Entitic mass] 32.0 pg Normal 25.2-33.5 [facility] Comment on above: Performed By: #### U MICAO, UAX, CDP, CP, LIPRF #### [place] [address] [employer]: Tej Locke MD MCHC (RBC) [Mass/Vol] 29.2 g/dL Normal 28.4-34.8 [facility] Comment on above: Performed By: #### U MICAO, UAX, CDP, CP, LIPRF #### [place] [address] [employer]iter: Tej Locke MD MCV (RBC) [Entitic vol] 109.6 fL High 82.6-102.9 [facility] [place] [facility] Comment on above: Performed By: #### U MICAO, UAX, CDP, CP, LIPRF #### [address] [address] [employer]iter: Tej Locke MD Monocytes (Bld) [#/Vol] 0.46 10*3/uL Normal 0.10-1.20 [facility] Comment on above: Performed By: #### U MICAO, UAX, CDP, CP, LIPRF #### [address] [address] [employer]: Tej Locke MD Monocytes/100 WBC (Bld) 9 % Normal 3-12 [facility] [place] [facility] Comment on above: Performed By: #### U MICAO, UAX, CDP, CP, LIPRF #### [address] [address] [employer]: Tej Locke MD Neutrophil (Seg) 50 % Normal 36-65 [facility] Comment on above: Performed By: #### U MICAO, UAX, CDP, CP, LIPRF #### [address] [address] [employer]: Tej Locke MD NRBC Automated 0.0 per 100 WBC Normal 0.0 [facility] Comment on above: Performed By: #### U MICAO, UAX, CDP, CP, LIPRF #### [address] [address] [employer]: Tej Locke MD Platelet mean volume (Bld) [Entitic vol] 11.5 fL Normal 8.1-13.5 [facility] Comment on above: Performed By: #### U MICAO, UAX, CDP, CP, LIPRF #### [address] [address] [employer]: Tej Locke MD Platelets (Bld) [#/Vol] 256 10*3/uL Normal 138-453 [facility] Comment on above: Performed By: #### U MICAO, UAX, CDP, CP, LIPRF #### [address] [address] [employer]: Tej Locke MD RBC (Bld) [#/Vol] 3.94 10*6/uL Low 3.95-5.11 [facility] Comment on above: Performed By: #### U MICAO, UAX, CDP, CP, LIPRF #### [facility] [address] [place] [address] [employer]iter: Tej Locke MD RBC morphology finding Nom (Bld) MACROCYTOSIS PRESENT Normal [facility] Comment on above: Performed By: #### U MICAO, UAX, CDP, CP, LIPRF #### [facility] [address] [place] [address] [employer]: Tej Locke MD WBC (Bld) [#/Vol] 5.3 10*3/uL Normal 3.5-11.3 [facility] Comment on above: Performed By: #### U MICAO, UAX, CDP, CP, LIPRF #### [address] [address] [employer]: Tej Locke MD Comp Metabolic Profon 2020 (cont.) Normal [facility] Comment on above: Result Comment: Aver age GFR for 60-69 years old: 85 mL/min/1.73sq m Chronic Kidney Disease: <60 mL/min/1.73sq m Kidney failure: <15 mL/min/1.73sq m eGFR calculated using average adult body mass. Additional eGFR calculator available at: http://www.[employer]/multiple_crcl_2011.htm Performed By: #### U MICAO, UAX, CDP, CP, LIPRF #### [facility] [place] [address] [employer]: Tej Locke MD Albumin [Mass/Vol] 4.3 g/dL Normal 3.5-5.2 [facility] Comment on above: Performed By: #### U MICAO, UAX, CDP, CP, LIPRF #### [facility] [place] [address] [employer]: Tej Locke MD Albumin/Glob Ratio 1.5 Normal 1.0-2.5 [facility] Comment on above: Performed By: #### U MICAO, UAX, CDP, CP, LIPRF #### [facility] [address] [place] [address] [employer]iter: Tej Locke MD Alkaline Phos 129 U/L High 35-104 [facility] Comment on above: Performed By: #### U MICAO, UAX, CDP, CP, LIPRF #### [facility] [address] [place] [address] [employer]: Tej Locke MD ALT [Catalytic activity/Vol] 19 U/L Normal 5-33 [facility] Comment on above: Performed By: #### U MICAO, UAX, CDP, CP, LIPRF #### [address] [address] [employer]: Tej Locke MD Anion gap [Moles/Vol] 10 mmol/L Normal 9-17 [facility] Comment on above: Performed By: #### U MICAO, UAX, CDP, CP, LIPRF #### [address] [address] [employer]: Tej Locke MD AST [Catalytic activity/Vol] 18 U/L Normal <32 [facility] Comment on above: Performed By: #### U MICAO, UAX, CDP, CP, LIPRF #### [facility] [address] [place] [address] [employer]: Tej Lcoke MD Bilirubin [Mass/Vol] 0.21 mg/dL Low 0.3-1.2 [facility] Comment on above: Performed By: #### U MICAO, UAX, CDP, CP, LIPRF #### [facility] [address] [place] [address] [employer]: Tej Locke MD Calcium [Mass/Vol] 10.9 mg/dL High 8.6-10.4 [facility] Comment on above: Performed By: #### U MICAO, UAX, CDP, CP, LIPRF #### [facility] [address] [place] [address] [employer]: Tej Locke MD Chloride [Moles/Vol] 108 mmol/L High 98-107 [facility] Comment on above: Performed By: #### U MICAO, UAX, CDP, CP, LIPRF #### [facility] [address] [place] [address] [employer]: Tej Locke MD CO2 [Moles/Vol] 21 mmol/L Normal 20-31 [facility] Comment on above: Performed By: #### U MICAO, UAX, CDP, CP, LIPRF #### [facility] [address] [place] [address] [employer]iter: Tej Locke MD Creatinine [Mass/Vol] 1.29 mg/dL High 0.50-0.90 [facility] Comment on above: Performed By: #### U MICAO, UAX, CDP, CP, LIPRF #### [facility] [address] [place] [address] [employer]: Tej Locke MD GFR, Amer 51 mL/min Low >60 [facility] Comment on above: Performed By: #### U MICAO, UAX, CDP, CP, LIPRF #### [facility] [address] [place] [address] [employer]iter: Tej Locke MD GFR,non Amer 42 mL/min Low >60 [facility] Comment on above: Performed By: #### U MICAO, UAX, CDP, CP, LIPRF #### [facility] [address] [place] [address] [employer]iter: Tej Locke MD Glucose [Mass/Vol] 88 mg/dL Normal 70-99 [facility] Comment on above: Performed By: #### U MICAO, UAX, CDP, CP, LIPRF #### [facility] [address] [place] [address] [employer]iter: Tej Locke MD Potassium [Moles/Vol] 3.9 mmol/L Normal 3.7-5.3 [facility] Comment on above: Performed By: #### U MICAO, UAX, CDP, CP, LIPRF #### [facility] [address] [place] [address] [employer]: Tej Locke MD Protein [Mass/Vol] 7.1 g/dL Normal 6.4-8.3 [facility] Comment on above: Performed By: #### U MICAO, UAX, CDP, CP, LIPRF #### [facility] [address] [place] [address] [employer]iter: Tej Locke MD Sodium [Moles/Vol] 139 mmol/L Normal 135-144 [facility] Comment on above: Performed By: #### U MICAO, UAX, CDP, CP, LIPRF #### [facility] [address] [place] [address] [employer]: Tej Locke MD Urea nitrogen [Mass/Vol] 15 mg/dL Normal 8-23 [facility] Comment on above: Performed By: #### U MICAO, UAX, CDP, CP, LIPRF #### [facility] [address] [place] [address] [employer]iter: Tej Locke MD Lipid Prof, Fastingon 2020 Cholesterol [Mass/Vol] 136 mg/dL Normal <200 [facility] Comment on above: Result Comment: Cholesterol Guidelines: <200 Desirable 200-240 Borderline >240 Undesirable Performed By: #### C DP, CP, LIPRF, TSHX #### [address] [address] [employer]: Tej Locke MD Cholesterol in HDL [Mass/Vol] 46 mg/dL Normal >40 [facility] Comment on above: Result Comment: HDL Guidelines: <40 Undesirable 40-59 Borderline >59 Desirable Performed By: #### C DP, CP, LIPRF, TSHX #### [address] [address] [employer]: Tej Locke MD Cholesterol in LDL [Mass/Vol] 58 mg/dL Normal 0-130 [facility] Comment on above: Result Comment: LDL Guidelines: <100 Desirable 100-129 Near to/above Desirable 130-159 Borderline >159 Undesirable Direct (measured) LDL and calculated LDL are not interchangeable tests. Performed By: #### C DP, CP, LIPRF, TSHX #### [address] [address] [employer]: Tej Locke MD Cholesterol.total/Judy sterol in HDL [Mass ratio] 3.0 {ratio} Normal <5 [facility] Comment on above: Performed By: #### C DP, CP, LIPRF, TSHX #### [facility] [address] [place] [address] [employer]iter: Tej Locke MD Triglyceride,Fasting 162 mg/dL High <150 [facility] Comment on above: Result Comment: Triglyceride Guidelines: <150 Desirable 150-199 Borderline 200-499 High >499 Very high Based on AHA Guidelines for fasting triglyceride, March 2012. Performed By: #### C DP, CP, LIPRF, TSHX #### [address] [address] [employer]: Tej Locke MD UA w/Reflex Cultureon 2020 Acetoacetic Acid,Ur Negative Normal NEG [facility] Comment on above: Performed By: #### U MICAO, UAX, CDP, CP, LIPRF #### [address] [address] [employer]: Tej Locke MD Bilirubin, SemiQt,Ur Negative Normal NEG [facility] Comment on above: Performed By: #### U MICAO, UAX, CDP, CP, LIPRF #### [address] [address] [employer]: Tej Locke MD Color (U) YELLOW Normal YEL [facility] Comment on above: Performed By: #### U MICAO, UAX, CDP, CP, LIPRF #### [address] [address] [employer]: Tej Locke MD Glucose Ql (U) Negative Normal NEG [facility] Comment on above: Performed By: #### U MICAO, UAX, CDP, CP, LIPRF #### [address] [address] [employer]iter: Tej Locke MD Hemoglobin, Ur Negative Normal NEG [facility] Comment on above: Performed By: #### U MICAO, UAX, CDP, CP, LIPRF #### [address] [address] [employer]: Tej Locke MD Leukocyte esterase Test strip Ql (U) SMALL Abnormal NEG [facility] Comment on above: Performed By: #### U MICAO, UAX, CDP, CP, LIPRF #### [address] [address] [employer]: Tej Locke MD Nitrite,Ur Negative Normal NEG [facility] Comment on above: Performed By: #### U MICAO, UAX, CDP, CP, LIPRF #### [address] [address] [employer]: Tej Locke MD PH,Ur 7.5 Normal 5.0-8.0 [facility] Comment on above: Performed By: #### U MICAO, UAX, CDP, CP, LIPRF #### [address] [address] [employer]iter: Tej Locke MD Protein Ql (U) Negative Normal NEG [facility] Comment on above: Performed By: #### U MICAO, UAX, CDP, CP, LIPRF #### [address] [address] [employer]: Tej Locke MD Spec. [place],Ur 1.006 Normal 1.005-1.03 0 [facility] Comment on above: Performed By: #### U MICAO, UAX, CDP, CP, LIPRF #### [address] [address] [employer]: Tej Locke MD Turbidity CLEAR Normal CLEAR [facility] Comment on above: Performed By: #### U MICAO, UAX, CDP, CP, LIPRF #### [address] [address] [employer]: Tej Locke MD Urobilinogen,Ur Normal Normal NORM [facility] Comment on above: Performed By: #### U MICAO, UAX, CDP, CP, LIPRF #### [address] [address] [employer]iter: Tej Locke MD Urinalysis,Microon 1 ----- Normal [facility] Comment on above: Performed By: #### U MICAO, UAX, CDP, CP, LIPRF #### [address] [address] [employer]: Tej Locke MD Epithelial cells LM Ql (Urine sed) 0 TO 2 Normal 0-5 [facility] Comment on above: Performed By: #### U MICAO, UAX, CDP, CP, LIPRF #### [facility] [address] [place] [address] [employer]iter: Tej Locke MD Urine RBC's None Normal 0-4 [facility] Comment on above: Result Comment: Refe rence range defined for non-centrifuged specimen. Performed By: #### U MICAO, UAX, CDP, CP, LIPRF #### [facility] [address] [place] [address] [employer]iter: Tej Locke MD Urine WBC's 0 TO 2 Normal 0-5 [facility] Comment on above: Performed By: #### U MICAO, UAX, CDP, CP, LIPRF #### [facility] [address] [place] [address] [employer]: Tej Locke MD CBC Auto Differentialon Basophils (Bld) [#/Vol] 0.06 10*3/uL [place] Basophils/100 WBC (Bld) 1 % 0 - 2 % [place] Differential Type NOT REPORTED [place] Eosinophils (Bld) [#/Vol] 0.22 10*3/uL [place] Eosinophils/100 WBC (Bld) 4 % 1 - 4 % [place] Erythrocyte distribution width (RBC) [Ratio] 12.7 % 11.8 - 14.4 % [place] Hematocrit (Bld) [Volume fraction] 43.2 % 36.3 - 47.1 % [place] Hemoglobin (Bld) [Mass/Vol] 12.6 g/dL 11.9 - 15.1 g/dL [place] Immature granulocytes (Bld) [#/Vol] 10*3/uL [place] Immature granulocytes (Bld) [#/Vol] 0 % 0 [place] Interpretation and review of laboratory results Abnormal [place] Lymphocytes (Bld) [#/Vol] 1.92 10*3/uL [place] Lymphocytes/100 WBC (Bld) 36 % 24 - 43 % [place] MCH (RBC) [Entitic mass] 32.0 pg 25.2 - 33.5 pg [place] MCHC (RBC) [Mass/Vol] 29.2 g/dL 28.4 - 34.8 g/dL [place] MCV (RBC) [Entitic vol] 109.6 fL High 82.6 - 102.9 fL [place] Monocytes (Bld) [#/Vol] 0.46 10*3/uL [place] Monocytes/100 WBC (Bld) 9 % 3 - 12 % [place] Platelet mean volume (Bld) [Entitic vol] 11.5 fL 8.1 - 13.5 fL [place] Platelets (Bld) [#/Vol] 256 10*3/uL [place] Platelets (Bld) [#/Vol] NOT REPORTED [place] RBC (Bld) [#/Vol] 3.94 10*6/uL Low 3.95 - 5.11 m/uL [place] RBC morphology finding Nom (Bld) MACROCYTOSIS PRESENT [place] Segmented neutrophils/100 WBC (Bld) 50 % 36 - 65 % [place] Segs Absolute 2.66 [place] WBC (Bld) [#/Vol] 0.0 10*3/uL 0.0 per 100 WBC [place] WBC (Bld) [#/Vol] 5.3 10*3/uL [place] WBC Morphology NOT REPORTED [place], [place] CBC with Diffon 07-08-2020 Auto Diff Performed NOT REPORTED Normal [facility] Comment on above: Performed By: #### U MICAO, UAX, CDP, CP, LIPRF #### [facility] [place], [place] [id number] [employer] Expediter: Tej Locke MD Platelet Estimate NOT REPORTED Normal [facility] Comment on above: Performed By: #### U MICAO, UAX, CDP, CP, LIPRF #### [facility] [address] [place], [place] [id number] [employer]iter: Tej Locke MD WBC Morphology NOT REPORTED Normal [facility] Comment on above: Performed By: #### U MICAO, UAX, CDP, CP, LIPRF #### [facility] [address] [place] [address] [employer]iter: Tej Locke MD Comp Metabolic Profon 2020 BUN/CRE Ratio NOT REPORTED Normal - [facility] Comment on above: Performed By: #### U MICAO, UAX, CDP, CP, LIPRF #### [facility] [address] [place] [address] [employer] Expediter: Tej Locke MD Staging: NOT REPORTED Normal [facility] Comment on above: Performed By: #### U MICAO, UAX, CDP, CP, LIPRF #### [facility] [address] [place] [address] [employer]iter: Tej Locke MD Comprehensive Metabolic Pane [facility] 07-08-2020 Albumin [Mass/Vol] 4.3 g/dL 3.5 - 5.2 g/dL [place] Albumin/Globulin [Mass ratio] 1.5 {ratio} [place] ALP [Catalytic activity/Vol] 129 U/L High 35 - 104 U/L [place] ALT [Catalytic activity/Vol] 19 U/L 5 - 33 U/L [place] Anion gap [Moles/Vol] 10 mmol/L 9 - 17 mmol/L [place] AST [Catalytic activity/Vol] 18 U/L <32 [place] Bilirubin Ql (U) 0.21 mg/dL Low 0.3 - 1.2 mg/dL [place] Bun/Cre Ratio NOT REPORTED [place] Calcium [Mass/Vol] 10.9 mg/dL High 8.6 - 10. 4 mg/dL [place] Chloride [Moles/Vol] 108 mmol/L High 98 - 10 7 mmol/L [place] CO2 [Moles/Vol] 21 mmol/L 20 - 31 mmol/L [place] Creatinine [Mass/Vol] 1.29 mg/dL High 0.5 - 0.9 mg/dL [place] GFR 51 mL/min Low >60 [place] GFR Non- 42 mL/min Low >60 [place] GFR/1.73 sq M predicted among non-blacks MDRD (S/P/Bld) [Vol rate/Area] NOT REPORTED [place] GFR/1.73 sq M predicted among non-blacks MDRD (S/P/Bld) [Vol rate/Area] [place] Comment on above: Average GFR for 60-6 9 years old: 85 mL/min/1.73sq m Chronic Kidney Disease: <60 mL/min/1.73sq m Kidney failure: <15 mL/min/1.73sq m eGFR calculated using average adult body mass. Additional eGFR calculator available at: http://www.[employer]/multiple_crcl_2011.htm Glucose [Mass/Vol] 88 mg/dL 70 - 99 mg/dL [place] Potassium [Moles/Vol] 3.9 mmol/L 3.7 - 5.3 mmol/L [place] Protein [Mass/Vol] 7.1 g/dL 6.4 - 8.3 g/dL [place] Sodium [Moles/Vol] 139 mmol/L 135 - 144 mmol/L [place] Urea nitrogen [Mass/Vol] 15 mg/dL 8 - 23 mg/dL [place] Laboratory - Chemistry and C hemistry - challengeOrdered By: Karla Clark on 07-08-2020 Albumin [Mass/Vol] 4.3 g/dL (3.5-5.2 ) [facility] Work Phone: Comment on above: Note: Responsible Ob server assistant: CCEV [employer]OFILE (3002) ALT [Catalytic activity/Vol] 19 U/L (5-33 ) [facility] Work Phone: Comment on above: Note: Responsible Ob server assistant: [employer]FILE (3002) Anion gap [Moles/Vol] 10 mmol/L (9-17 ) [facility] Work Phone: Comment on above: Note: Responsible Ob server assistant: CCE[employer]FILE (3002) AST [Catalytic activity/Vol] 18 U/L (<32 ) [facility] Work Phone: Comment on above: Note: Responsible Ob server assistant: [employer]FILE (3002) Bilirubin [Mass/Vol] 0.21 mg/dL Low (0.3-1.2 ) [facility] Work Phone: Comment on above: Note: Responsible Ob server assistant: [employer] (3002) Calcium [Mass/Vol] 10.9 mg/dL High (8.6-10.4 ) [facility] Work Phone: Comment on above: Note: Responsible Ob server assistant: [employer] (3002) Chloride [Moles/Vol] 108 mmol/L High (98-107 ) [facility] Work Phone: Comment on above: Note: Responsible Ob server assistant: [employer] (3002) Cholesterol [Mass/Vol] 136 mg/dL (<200 ) [facility] Work Phone: Comment on above: Note: Cholesterol Gu idelines:<200 [id number] Borderline>240 UndesirableResponsible Observer: CCEV [employer] (3002) Cholesterol.total/Judy sterol in HDL [Mass ratio] 3.0 {ratio} (<5 ) [facility] Work Phone: Comment on above: Note: Responsible Ob server assistant: [employer] (3002) CO2 [Moles/Vol] 21 mmol/L (20-31 ) [facility] Work Phone: Comment on above: Note: Responsible Ob server assistant: CCEV [employer] (3002) Creatinine [Mass/Vol] 1.29 mg/dL High (0.50- 0.90 ) [facility] Work Phone: Comment on above: Note: Responsible Ob server assistant: CCEV [employer] (3002) Glucose [Mass/Vol] 88 mg/dL (70-99 ) [facility] Work Phone: Comment on above: Note: Responsible Ob server assistant: [employer] (3002) Magnesium [Mass/Vol] 46 mg/dL (>40 ) [facility] Work Phone: Comment on above: Note: HDL Guidelines :<40 [id number] Borderline>59 DesirableResponsible Observer: CCEV [employer]OFILE (3002) Magnesium [Mass/Vol] 58 mg/dL (0-130 ) [facility] Work Phone: Comment on above: Note: LDL Guidelines :<100 [id number] Near to/above [id number] Borderline>159 UndesirableDirect (measured) LDL and calculated LDL are not interchangeable tests.Responsible Observer: CCEV [employer] (3002) Magnesium [Mass/Vol] 162 mg/dL High (<150 ) [facility] Work Phone: Comment on above: Note: Triglyceride G uidelines:<150 [id number] High>499 Very highBased on AHA Guidelines for fasting triglyceride, March 2012.Responsible Observer: CCEV [employer]FILE (3002) Potassium [Moles/Vol] 3.9 mmol/L (3.7-5.3 ) [facility] Work Phone: Comment on above: Note: Responsible Ob server assistant: CCEV AUTOFILE (3002) Protein [Mass/Vol] 7.1 g/dL (6.4-8.3 ) [facility] Work Phone: Comment on above: Note: Responsible Ob server assistant: CCEV [employer]FILE (3002) Sodium [Moles/Vol] 139 mmol/L (135-144 ) [facility] Work Phone: Comment on above: Note: Responsible Ob server assistant: CCEV [employer]FILE (3002) Urea nitrogen [Mass/Vol] 15 mg/dL (8-23 ) [facility] Work Phone: Comment on above: Note: Responsible Ob server assistant: CCEV AUTOFILE (3002) Laboratory - Hematology and Cell countsOrdered By: Karla Clark on 07-08-2020 Basophils/100 WBC (Bld) 1 % (0-2 ) [facility] Comment on above: Note: Responsible Ob server assistant: XNV AUTOFILE (3018) Eosinophils (Bld) [#/Vol] 0.22 10*3/uL (0.00-0.44 ) [facility] Work Phone: Comment on above: Note: Responsible Ob server assistant: [employer]NV AUT[employer]FILE (3018) Eosinophils/100 WBC (Bld) 4 % (1-4 ) [facility] Work Phone: Comment on above: Note: Responsible Ob server assistant: XNV [employer]OFILE (3018) Erythrocyte distribution width (RBC) [Ratio] 12.7 % (11.8-14.4 ) [facility] Work Phone: Comment on above: Note: Responsible Ob server assistant: XNV [employer]OFILE (3018) Hematocrit (Bld) [Volume fraction] 43.2 % (36.3-47.1 ) [facility] Work Phone: Comment on above: Note: Responsible Ob server assistant: [employer]NV [employer]OFILE (3018) Hemoglobin (Bld) [Mass/Vol] 12.6 g/dL (11.9-15.1 ) [facility] Work Phone: Comment on above: Note: Responsible Ob server assistant: XNV AUTOFILE (3018) Immature granulocytes/100 WBC (Bld) 0 % (0 ) [facility] [facility] Work [facility]: Comment on above: Note: Responsible Ob server assistant: XNV AUTOFILE ([id number]) Lymphocytes (Bld) [#/Vol] 1.92 10*3/uL (1.10-3.70 ) [facility] Work Phone: Comment on above: Note: Responsible Ob server assistant: XNV AUTOFILE ([id number]) Lymphocytes/100 WBC (Bld) 36 % (24-43 ) [facility] Work Phone: Comment on above: Note: Responsible Ob server assistant: XNV AUTOFILE ([id number]) MCH (RBC) [Entitic mass] 32.0 pg (25.2-33.5 ) [facility] Work Phone: Comment on above: Note: Responsible Ob server assistant: XNV AUTOFILE ([id number]) MCHC (RBC) [Mass/Vol] 29.2 g/dL (28.4- 34.8 ) [facility] Work Phone: Comment on above: Note: Responsible Ob server assistant: XNV AUTOFILE ([id number]) MCV (RBC) [Entitic vol] 109.6 fL High (82. 6-102. 9 ) [facility] Work Phone: Comment on above: Note: Responsible Ob server assistant: XNV AUTOFILE ([id number]) Monocytes (Bld) [#/Vol] 0.46 10*3/uL (0.1 0-1.20 ) [facility] Work Phone: Comment on above: Note: Responsible Ob server assistant: XNV AUTOFILE ([id number]) Monocytes/100 WBC (Bld) 9 % (3-12 ) [facility] Comment on above: Note: Responsible Ob server assistant: XNV AUTOFILE ([id number]) Platelet mean volume (Bld) [Entitic vol] 11.5 fL (8.1-13.5 ) [facility] Work Phone: Comment on above: Note: Responsible Ob server assistant: XNV AUTOFILE ([id number]) Platelets (Bld) [#/Vol] 256 10*3/uL (138-453 ) [facility] Work Phone: Comment on above: Note: Responsible Ob server assistant: XNV AUTOFILE ([id number]) RBC (Bld) [#/Vol] 3.94 10*6/uL Low (3.95-5.11 ) [facility] Work Phone: Comment on above: Note: Responsible Ob server assistant: XNV AUTOFILE ([id number]) RBC morphology finding Nom (Bld) MACROCYTOSIS PRESENT [facility] Work Phone: Comment on above: Note: Responsible Ob server assistant: XNV AUTOFILE ([id number]) Segmented neutrophils/100 WBC (Bld) 50 % (36-65 ) [facility] Work Phone: Comment on above: Note: Responsible Ob server assistant: XNV AUTOFILE ([id number]) WBC (Bld) [#/Vol] 5.3 10*3/uL (3.5-11.3 ) [facility] Work Phone: Comment on above: Note: Responsible Ob server assistant: XNV AUTOFILE ([id number]) Laboratory - Microbiology an d Antimicrobial susceptibilityOrdered By: Karla Clark on 07-08-2020 Bacteria identified Cx Nom (Unsp spec) NOT REPORTED (NONE ) [facility] Work Phone: Laboratory - Specimen inform ationOrdered By: Karla Clark on 07-08-2020 Color (U) YELLOW (YEL ) [facility] Work Phone: Comment on above: Note: Responsible Ob server assistant: LETY MARTÍNEZ ([phone]) Laboratory - UrinalysisOrder ed By: Karla Clark on 07-08-2020 Amorphous sediment LM Ql (Urine sed) NOT REPORTED (NONE ) [facility] Work Phone: Crystals LM Nom (Urine sed) NOT REPORTED /HPF (NONE ) [facility] Work Phone: Epithelial cells LM Ql (Urine sed) 0 TO 2 /HPF (0-5 ) [facility] Work Phone: Comment on above: Note: Responsible Ob server assistant: LETY MARTÍNEZ (689) Yeast LM Ql (Urine sed) NOT REPORTED (NONE ) [facility] Work Phone: Lipid Prof, Fastingon 2020 Cholesterol,VLDL NOT REPORTED Normal 1-30 [facility] Comment on above: Performed By: #### C DP, CP, LIPRF, TSHX #### [facility] [address] [place] [address] [employer]elt Furnace Expediter: Tej Locke MD Lipid, Fastingon 07-08-2020 Cholesterol [Mass/Vol] 136 mg/dL <200 [place], [place] Comment on above: Cholesterol Guidelines: <200 Desirable 200-240 Borderline >240 Undesirable Cholesterol in HDL [Mass/Vol] 46 mg/dL >40 [place], [place] Comment on above: HDL Guidelines: <40 Undesirable 40-59 Borderline >59 Desirable Cholesterol in LDL [Mass/Vol] 58 mg/dL 0 - 130 mg/dL [place] Comment on above: LDL Guidelines: <100 Desirable 100-129 Near to/above Desirable 130-159 Borderline >159 Undesirable Direct (measured) LDL and calculated LDL are not interchangeable tests. Cholesterol in VLDL [Mass/Vol] NOT REPORTED High 1 - 30 mg/dL [place] Cholesterol.total/Judy sterol in HDL [Mass ratio] 3 {ratio} <5 [place] Triglyceride, Fasting 162 mg/dL High <150 [place], [place] Comment on above: Triglyceride Guidelines: <150 Desirable 150-199 Borderline 200-499 High >499 Very high Based on AHA Guidelines for fasting triglyceride, March 2012. Microscopic Urinalysison Amorphous, UA NOT REPORTED None [place], [place] Bacteria, UA NOT REPORTED None [place], [place] Casts UA NOT REPORTED [place], [place] Crystals, UA NOT REPORTED None /HPF [place], [place] Epithelial Cells UA 0 TO 2 [place] Mucus, UA NOT REPORTED None [place], [place] Other Observations UA NOT REPORTED NOT REQ. M [place], [place] RBC (U) [#/Vol] None [place], [place] Comment on above: Reference range defi aggie for non-centrifuged specimen. Renal Epithelial, UA NOT REPORTED 0 /HPF [facility], [place] Trichomonas, UA NOT REPORTED None [place], [place] WBC, UA 0 TO 2 [place] Yeast, UA NOT REPORTED None [facility], [place] - [place], [place] No Panel InformationOrdered By: Karla Clark on 07-08-2020 (cont.) See Note [facility] Work Phone: Comment on above: Note: Average GFR fo r 60-69 years old:85 mL/min/1.73sq mChronic Kidney Disease:<60 mL/min/1.73sq mKidney failure:<15 mL/min/1.73sq meGFR calculated using average adult body mass. Additional eGFR calculatoravailable at:http://www.[employer] [place]/multiple_crcl_2012.htmResponsible Observer: CCEV AUTOFILE ([id number]) ----- See Note [facility] Work Phone: Comment on above: Note: Responsible Ob server assistant: LETY MARTÍNEZ (909) Abs. Basophil 0.06 k/uL (0.00-0.20 ) [facility] Work Phone: Comment on above: Note: Responsible Ob server assistant: XNV AUTOFILE (301) Abs.Imm.Granulocyte <0.03 k/uL (0.00-0. 30 ) [facility] Work Phone: Comment on above: Note: Responsible Ob server assistant: XNV AUTOFILE ([id number]) Abs.Neutrophil (Seg) 2.66 k/uL (1.50-8 .10 ) [facility] Work Phone: Comment on above: Note: Responsible Ob server assistant: XNV AUTOFILE ([id number]) Acetoacetic Acid,Ur Negative (NEG ) [facility] Work Phone: Comment on above: Note: Responsible Ob server assistant: LETY MARTÍNEZ (158) Albumin/Glob Ratio 1.5 (1.0-2.5 ) [facility] Work Phone: Comment on above: Note: Responsible Ob server assistant: CCEV AUTOFILE (3002) Alkaline Phos 129 U/L High (35-104 ) [facility] Work Phone: Comment on above: Note: Responsible Ob server assistant: CCEV AUTOFILE ([id number]) Auto Diff Performed NOT REPORTED [facility] Work Phone: Bilirubin, SemiQt,Ur Negative (NEG ) [facility] Work Phone: Comment on above: Note: Responsible Ob server assistant: LETY MARTÍNEZ (838) BUN/CRE Ratio NOT REPORTED (9-20 ) [facility] Work Phone: Casts NOT REPORTED /LPF (0-8 ) [facility] Work Phone: Cholesterol,VLDL NOT REPORTED mg/dL (1-30 ) [facility] Work Phone: Comment NOT REPORTED [facility] Work Phone: Epithelial, Renal NOT REPORTED /HPF (0 ) [facility] Work Phone: GFR, Amer 51 mL/min Low (>60 ) [facility] Work Phone: Comment on above: Note: Responsible Ob server assistant: CCEV AUTOFILE ([id number]) GFR,non Amer 42 mL/min Low (>60 ) [facility] Work Phone: Comment on above: Note: Responsible Ob server assistant: CCEV AUTOFILE ([id number]) Glucose,Semi-qnt,Ur Negative (NEG ) [facility] Work Phone: Comment on above: Note: Responsible Ob server assistant: LETY MARTÍNEZ (297) Hemoglobin, Ur Negative (NEG ) [facility] Work Phone: Comment on above: Note: Responsible Ob server assistant: LETY MARTÍNEZ (578) Leuckocyte Esterase SMALL Abnormal (NEG ) [facility] Work Phone: Comment on above: Note: Responsible Ob server assistant: LETY MARTÍNEZ (422) Mucus Strands NOT REPORTED (NONE ) [facility] Work Phone: Nitrite,Ur Negative (NEG ) [facility] Work Phone: Comment on above: Note: Responsible Ob server assistant: LETY MARTÍNEZ (609) NRBC Automated 0.0 per_100_WBC (0.0 ) [facility] Work Phone: Comment on above: Note: Responsible Ob server assistant: XNV AUTOFILE ([id number]) Other Observations NOT REPORTED (NREQ ) [facility] Work Phone: Performing Lab: see note [facility] Work Phone: Comment on above: Note: MICHELLE Kinney [address] [facility] [address] PH,Ur 7.5 (5.0-8.0 ) [facility] Work Phone: Comment on above: Note: Responsible Ob server assistant: LETY MARTÍNEZ (999) Platelet Estimate NOT REPORTED [facility] Work Phone: Protein, Semi-qnt,Ur Negative (NEG ) [facility] Work Phone: Comment on above: Note: Responsible Ob server assistant: LETY MARTÍNEZ (295) Reported Physicians See Note [facility] Work Phone: Comment on above: Note: Reported Physi cians:Ordering: Cotton, AimeeAttending: Cotton, AimeeReferring: Cotton, Karla Spec. [place],Ur 1.006 (1.005-1.0 30 ) [facility] Work Phone: Comment on above: Note: Responsible Ob server assistant: LETY MARTÍNEZ (239) Staging: NOT REPORTED [facility] Work Phone: Trichomonas NOT REPORTED (NONE ) [facility] Work Phone: Turbidity CLEAR (CLEAR ) [facility] Work Phone: Comment on above: Note: Responsible Ob server assistant: LETY MARTÍNEZ (909) Urine RBC's None /HPF (0-4 ) [facility] Work Phone: Comment on above: Note: Reference rang e defined for non-centrifuged specimen.Responsible Observer: LETY MARTÍNEZ (909) Urine WBC's 0 TO 2 /HPF (0-5 ) [facility] Work Phone: Comment on above: Note: Responsible Ob server assistant: LETY MARTÍNEZ (159) Urobilinogen,Ur Normal (NORM ) [facility] Work Phone: Comment on above: Note: Responsible Ob server assistant: LETY MARTÍNEZ (646) WBC Morphology NOT REPORTED [facility] Work Phone: Otheron 07-08-2020 Interpretation and review of laboratory results Abnormal [facility] [place], [place] UA w/Reflex Cultureon 2020 Comment NOT REPORTED Normal [facility] Comment on above: Performed By: #### U MICAO, UAX, CDP, CP, LIPRF #### [facility] [address] [place], [place] [id number] [employer] Expediter: Tej Locke MD Urinalysis Reflex to Culture on 07-08-2020 Bilirubin Urine Negative NEGATIVE [facility] [place], [place] Color, UA YELLOW YELLOW [facility] [place] Glucose, Ur Negative NEGATIVE [facility] [place] Interpretation and review of laboratory results Abnormal [facility] [place] Ketones Ql (U) Negative NEGATIVE [facility] [place] [place] Leukocyte esterase Test strip Ql (U) SMALL Abnormal NEGATIVE [facility], [place] Nitrite, Urine Negative NEGATIVE [facility], [place] pH, UA 7.5 [place], [place] Protein (U) [Mass/Vol] Negative NEGATIVE [facility], [place] Specific [place], UA 1.006 [place], [place] Turbidity UA CLEAR CLEAR [place], [place] Urinalysis Comments NOT REPORTED [place], [place] Urine Hgb Negative NEGATIVE [place] Urobilinogen, Urine Normal Normal [place], [place] Urinalysis,Microon 1 Amorphous sediment LM Ql (Urine sed) NOT REPORTED Normal NONE [facility] Comment on above: Performed By: #### U MICAO, UAX, CDP, CP, LIPRF #### [address] [address] [employer] Expediter: Tej Locke MD Bacteria NOT REPORTED Normal NONE [facility] Comment on above: Performed By: #### U MICAO, UAX, CDP, CP, LIPRF #### [facility] [address] [place] [id number] [employer] Expediter: Tej Locke MD Casts NOT REPORTED Normal 0-8 [facility] Comment on above: Performed By: #### U MICAO, UAX, CDP, CP, LIPRF #### [facility] [address] [place] [phone] [employer] Furn[employer] Expediter: Tej Locke MD Crystals LM Nom (Urine sed) NOT REPORTED Normal [facility] Comment on above: Performed By: #### U MICAO, UAX, CDP, CP, LIPRF #### [facility] [address] [place] [phone] [employer] Expediter: Tej Locke MD Epithelial, Renal NOT REPORTED Normal 0 [facility] Comment on above: Performed By: #### U MICAO, UAX, CDP, CP, LIPRF #### [facility] [address] [place] [address] [phone] [employer] Expediter: Tej Locke MD Mucus Strands NOT REPORTED Normal NONE [facility] Comment on above: Performed By: #### U MICAO, UAX, CDP, CP, LIPRF #### [facility] [address] [place] [address] [employer] Furn[employer] Expediter: Tej Locke MD Other Observations NOT REPORTED Normal NREQ [facility] Comment on above: Performed By: #### U MICAO, UAX, CDP, CP, LIPRF #### [facility] [address] [place] [address] [employer] Expediter: Tej Locke MD Trichomonas NOT REPORTED Normal NONE [facility] Comment on above: Performed By: #### U MICAO, UAX, CDP, CP, LIPRF #### [facility] [address] [place] [phone] [employer] Furn[employer] Expediter: Tej Locke MD Yeast NOT REPORTED Normal NONE [facility] Comment on above: Performed By: #### U MICAO, UAX, CDP, CP, LIPRF #### [facility] [address] [place] [phone] [employer] Expediter: Tej Locke MD BUNon 06-30-2020 Urea nitrogen [Mass/Vol] 17 mg/dL 8 - 23 mg/dL [place] Creatinine, Serumon 06-30-19 21 Creatinine [Mass/Vol] 1.26 mg/dL High 0.5 - 0.9 mg/dL [place] GFR 52 mL/min Low >60 [place], [place] GFR Non- 43 mL/min Low >60 [place] Interpretation and review of laboratory results Abnormal [place] Laboratory - Chemistry and C hemistry - challengeOrdered By: Karla Clark on 06-30-2020 Creatinine [Mass/Vol] 1.26 mg/dL High (0.50- 0.90 ) [facility] Work Phone: Comment on above: Note: Responsible Ob server assistant: CET ONE AUTOFILE ([id number]) Urea nitrogen [Mass/Vol] 17 mg/dL (8-23 ) [facility] Work Phone: Comment on above: Note: Responsible Ob server assistant: CET ONE AUTOFILE ([id number]) Laboratory - Microbiology an d Antimicrobial susceptibilityOrdered By: Karla Clark on 06-30-2020 SARS-CoV-2 (COVID-19) RNA MARCIO+probe Ql (Resp) Not detected (Not Detected ) [facility] Work Phone: Comment on above: Note: This [...] of in vitro diagnostic tests for detection [id number] virus and/or diagnosis of COVID-19 infectionunder section [...] Unremarkable exam. N o significant pituitary mass. [facility] EXAMINATION: MRI OF THE BRAIN WITHOUT [...] The soft tissues demonstrate no acute abnormality. [place], [place], Mhpn Incoming Radiant Results From [employer] - 06/30/2020 4:29 PM EST EXAMINATION: MRI [...] IMPRESSION: Unremarkable exam. No significant pituitary mass. [place], [place] Metabolic Panelon 06-30-2020 GFR/1.73 sq M predicted among non-blacks MDRD (S/P/Bld) [Vol rate/Area] [place] Comment on above: Average GFR for 60-6 9 years old: 85 mL/min/1.73sq m Chronic Kidney Disease: <60 mL/min/1.73sq m Kidney failure: <15 mL/min/1.73sq m eGFR calculated using average adult body mass. Additional eGFR calculator available at: http://www.[employer]/multiple_crcl_2011.htm Stage 1: Some kidney damage normal GFR Stage 2: Mild kidney damage GFR 60-89 Stage 3: Moderate kidney damage GFR 30-59 Stage 4: Severe kidney damage GFR 15-29 Stage 5: Severe kidney damage GFR <15 ESRD - chronic treatment by dialysis or transplant No Panel InformationOrdered By: Karla Clark on 06-30-2020 (cont.) See Note [facility] Work Phone: Comment on above: Note: Average GFR fo r 60-69 years old:85 mL/min/1.73sq mChronic Kidney Disease:<60 mL/min/1.73sq mKidney failure:<15 mL/min/1.73sq meGFR calculated using average adult body mass. Additional eGFR calculatoravailable at:http://www.[employer] [place]/multiple_crcl_2012.htmResponsible Observer: CET ONE AUTOFILE ([id number]) GFR, Amer 52 mL/min Low (>60 ) [facility] Work Phone: Comment on above: Note: Responsible Ob server assistant: CET ONE AUTOFILE ([id number]) GFR,non Amer 43 mL/min Low (>60 ) [facility] Work Phone: Comment on above: Note: Responsible Ob server assistant: CET ONE AUTOFILE ([id number]) Performing Lab: see note [facility] Work Phone: Comment on above: Note: [facility] [address] [place] [address] Reported Physicians See Note [facility] Work Phone: Comment on above: Note: Reported Physi cians:Ordering: Cotton, AimeeAttending: Cotton, AimeeReferring: Cotton, Karla Staging: See Note [facility] Work Phone: Comment on above: Note: Stage 1: Some kidney damage normal GFRStage 2: Mild kidney damage GFR 60-89Stage 3: Moderate kidney damage GFR 30-59Stage 4: Severe kidney damage GFR 15-29Stage 5: Severe kidney damage GFR <15ESRD - chronic treatment by dialysis or transplantResponsible Observer: CET ONE AUTOFILE ([id number]) Surgical Pathologyon 021 Surgical Pathology Report -- [...] SURGICAL PATHOLOGY CONSULTATION Patient Name: GAIL ALMEIDA [facility] Rec: [id number] Path Number: [id number] [facility] ANAT[facility] PATH[facility] [address] [place] [address]. [place], [place] [address] [place], [place] Otheron 06-08-2020 Addendum by Del Ross MD on [...] Return to yearly screening schedule is recommended. [facility] [place] Technically successf ul ultrasound guided core biopsy of subtle sonographic abnormality in the posterior 4 o'clock left breast near the chest wall and coil shapedclip marker placement as described above. BIRADS: ZW - Pathology pending. [place], [place] EXAMINATION: ULTRASOUND-GUIDED LEFT BREAST BIOPSY WITH [...] placement imaging performed in a separate room. [facility], [place], colton Incoming Radiant Results From [employer] - 06/08/2020 11:19 AM EST EXAMINATION: ULTRASOUND-GUIDED [...] described above. BIRADS: ZW - Pathology pending. [place] Prolactinon 06-06-2020 Interpretation and review of laboratory results Abnormal [place], [place] Prolactin 223 ug/L High 4.79 - 23.3 ug/L [place], [place] Comment on above: The presence of [...] patient at the time of service. A telesales representative from the radiology department will be contacting your office and assisting the patient in getting appropriate follow-up. [place] EXAMINATION: DIAGNOS TIC DIGITAL BILATERAL BREASTS MAMMOGRAM [...] tissue sampling of this location is advised. [facility] [place], [place], [place] Incoming Radiant Results From [employer] - 04/04/2020 5:42 PM EST EXAMINATION: DIAGNOSTIC [...] patient at the time of service. A telesales representative from the radiology department will be contacting your office and assisting the patient in getting appropriate follow-up. [facility] [place], [place] BUN (Urea N)on 04-01-2020 Urea nitrogen [Mass/Vol] 21 mg/dL Normal 8-23 [facility] Comment on above: Performed By: #### B UN, CREG #### [facility] [address] [place] [phone] [employer] Furn[employer] Expediter: Tej Locke MD Creatinine w/GFRon 0 (cont.) Normal [facility] Comment on above: Result Comment: Aver age GFR for 60-69 years old: 85 mL/min/1.73sq m Chronic Kidney Disease: <60 mL/min/1.73sq m Kidney failure: <15 mL/min/1.73sq m eGFR calculated using average adult body mass. Additional eGFR calculator available at: http://www.[employer] [place]/multiple_crcl_2012.htm Performed By: #### B NAFISA, CREG #### [facility] [address] [place] [phone] [employer] Expediter: Tej Locke MD Creatinine [Mass/Vol] 1.10 mg/dL High 0.50-0.90 [facility] Comment on above: Performed By: #### B UN, CREG #### [facility] [address] [place] [phone] [employer] Expediter: Tej Locke MD GFR, Amer >60 Normal >60 [facility] Comment on above: Performed By: #### B UN, CREG #### [facility] [address] [place] [phone] [employer] Expediter: Tej Locke MD GFR,non Amer 50 mL/min Low >60 [facility] Comment on above: Performed By: #### B UN, CREG #### [facility] [address] [place] [address] [phone] [employer] Expediter: Tej Locke MD BUNon 03-31-2020 Urea nitrogen [Mass/Vol] 21 mg/dL 8 - 23 mg/dL [place] Creatinine w/GFRon 0 Staging: NOT REPORTED Normal [facility] Comment on above: Performed By: #### B UN, CREG #### [facility] [address] [place] [address] [employer] Furn[employer] Expediter: Tej Locke MD Creatinine, Serumon 03-31-20 20 Creatinine [Mass/Vol] 1.1 mg/dL High 0.5 - 0.9 mg/dL [place] GFR >60 >60 mL/min [place], [place] GFR Non- 50 mL/min Low >60 [place] GFR/1.73 sq M predicted among non-blacks MDRD (S/P/Bld) [Vol rate/Area] [place], [place] Comment on above: Average GFR for 60-6 9 years old: 85 mL/min/1.73sq m Chronic Kidney Disease: <60 mL/min/1.73sq m Kidney failure: <15 mL/min/1.73sq m eGFR calculated using average adult body mass. Additional eGFR calculator available at: http://www.[employer] [place]/multiple_crcl_2012.htm GFR/1.73 sq M predicted among non-blacks MDRD (S/P/Bld) [Vol rate/Area] NOT REPORTED [place] Interpretation and review of laboratory results Abnormal [place] Metabolic Panelon 03-31-2020 Creatinine [Mass/Vol] 1.10 mg/dL High (0.50- 0.90 ) [facility] Work Phone: Comment on above: Note: Responsible Ob server assistant: CEEV AUTOFILE ([id number]) Urea nitrogen [Mass/Vol] 21 mg/dL (8-23) [facility] Work Phone: Comment on above: Note: Responsible Ob server assistant: CEEV AUTOFILE ([id number]) Otheron 03-31-2020 (cont.) See Note [facility] Work Phone: Comment on above: Note: Average GFR fo r 60-69 years old:85 mL/min/1.73sq mChronic Kidney Disease:<60 mL/min/1.73sq mKidney failure:<15 mL/min/1.73sq meGFR calculated using average adult body mass. Additional eGFR calculatoravailable at:http://www.[employer]/multiple_crcl_2012.htmResponsible Observer: CEEV AUTOFILE ([id number]) GFR, Amer >60 mL/min (>60) [facility] Work Phone: Comment on above: Note: Responsible Ob server assistant: CEEV AUTOFILE ([id number]) GFR,non Amer 50 mL/min Low (>60) [facility] Work Phone: Comment on above: Note: Responsible Ob server assistant: CEEV AUTOFILE ([id number]) Performing Lab: see note [facility] Work Phone: Comment on above: Note: [facility] [address] [facility] [phone] Reported Physicians See Note [facility] Work Phone: Comment on above: Note: Reported Physi cians:Ordering: Cotton, AimeeAttending: Cotton, AimeeReferring: Cotton, Karla Staging: NOT REPORTED [facility] Work Phone: CBC with Diffon 03-11-2020 Abs. Basophil 0.06 k/uL Normal 0.00-0.20 [facility] [facility] Comment on above: Performed By: #### C DP, CP, LIPRF, TSHX #### [facility] [address] [place], [place] [phone] [employer] Furn[employer] Expediter: Tej Locke MD Abs.Imm.Granulocyte <0.03 Normal 0.00-0.30 [facility] Comment on above: Performed By: #### C DP, CP, LIPRF, TSHX #### [facility] [address] [place] [address] [employer] Furn[employer] Expediter: Tej Locke MD Abs.Neutrophil (Seg) 3.12 k/uL Normal 1.50-8.10 [facility] Comment on above: Performed By: #### C DP, CP, LIPRF, TSHX #### [place] [address] [employer]iter: Tej Locke MD Basophils/100 WBC (Bld) 1 % Normal 0-2 [facility] Comment on above: Performed By: #### C DP, CP, LIPRF, TSHX #### [place] [address] [employer] Furn[employer] Expediter: Tej Locke MD Eosinophils (Bld) [#/Vol] 0.15 10*3/uL Normal 0.00-0.44 [facility] Comment on above: Performed By: #### C DP, CP, LIPRF, TSHX #### [place] [address] [employer]iter: Tej Locke MD Eosinophils/100 WBC (Bld) 3 % Normal 1-4 [facility] Comment on above: Performed By: #### C DP, CP, LIPRF, TSHX #### [place] [address] [employer] Expediter: Tej Locke MD Erythrocyte distribution width (RBC) [Ratio] 13.2 % Normal 11.8-14.4 [facility] Comment on above: Performed By: #### C DP, CP, LIPRF, TSHX #### [place] [address] [employer] Furn[employer]iter: Tej Locke MD Hematocrit (Bld) [Volume fraction] 42.7 % Normal 36.3-47.1 [facility] Comment on above: Performed By: #### C DP, CP, LIPRF, TSHX #### [address] [address] [employer] Expediter: Tej Locke MD Hemoglobin (Bld) [Mass/Vol] 12.6 g/dL Normal 11.9-15.1 [facility] Comment on above: Performed By: #### C DP, CP, LIPRF, TSHX #### [address] [address] [employer]iter: Tej Locke MD Immature granulocytes/100 WBC (Bld) 0 % Normal 0 [facility] Comment on above: Performed By: #### C DP, CP, LIPRF, TSHX #### [place] [address] [employer] Expediter: Tej Locke MD Lymphocytes (Bld) [#/Vol] 1.57 10*3/uL Normal 1.10-3.70 [facility] Comment on above: Performed By: #### C DP, CP, LIPRF, TSHX #### [place] [address] [employer]iter: Tej Locke MD Lymphocytes/100 WBC (Bld) 29 % Normal 24-43 [facility] Comment on above: Performed By: #### C DP, CP, LIPRF, TSHX #### [place] [address] [employer] Expediter: Tej Locke MD MCH (RBC) [Entitic mass] 32.1 pg Normal 25.2-33.5 [facility] Comment on above: Performed By: #### C DP, CP, LIPRF, TSHX #### [place] [address] [employer] Furn[employer] Expediter: Tej Locke MD MCHC (RBC) [Mass/Vol] 29.5 g/dL Normal 28.4-34.8 [facility] Comment on above: Performed By: #### C DP, CP, LIPRF, TSHX #### [address] [address] [employer] Furn[employer] Expediter: Tej Locke MD MCV (RBC) [Entitic vol] 108.7 fL High 82.6-102.9 [facility] Comment on above: Performed By: #### C DP, CP, LIPRF, TSHX #### [place] [address] [employer]iter: Tej Locke MD Monocytes (Bld) [#/Vol] 0.45 10*3/uL Normal 0.10-1.20 [facility] Comment on above: Performed By: #### C DP, CP, LIPRF, TSHX #### [place] [address] [employer]iter: Tej Locke MD Monocytes/100 WBC (Bld) 8 % Normal 3-12 [facility] Comment on above: Performed By: #### C DP, CP, LIPRF, TSHX #### [place] [address] [employer] Expediter: Tej Locke MD Neutrophil (Seg) 59 % Normal 36-65 [facility] Comment on above: Performed By: #### C DP, CP, LIPRF, TSHX #### [place] [address] [employer] Furn[employer] Expediter: Tej Locke MD NRBC Automated 0.0 per 100 WBC Normal 0.0 [facility] Comment on above: Performed By: #### C DP, CP, LIPRF, TSHX #### [address] [address] [employer]iter: Tej Locke MD Platelet mean volume (Bld) [Entitic vol] 11.1 fL Normal 8.1-13.5 [facility] Comment on above: Performed By: #### C DP, CP, LIPRF, TSHX #### [facility] [address] [place] [address] [employer]elt Furnace Expediter: Tej Locke MD Platelets (Bld) [#/Vol] 259 10*3/uL Normal 138-453 [facility] Comment on above: Performed By: #### C DP, CP, LIPRF, TSHX #### [facility] [address] [place] [address] [employer] Expediter: Tej Locke MD RBC (Bld) [#/Vol] 3.93 10*6/uL Low 3.95-5.11 [facility] Comment on above: Performed By: #### C DP, CP, LIPRF, TSHX #### [address] [address] [employer] Furn[employer] Expediter: Tej Locke MD RBC morphology finding Nom (Bld) MACROCYTOSIS PRESENT Normal [facility] Comment on above: Performed By: #### C DP, CP, LIPRF, TSHX #### [facility] [address] [place] [address] [employer]iter: Tej Locke MD WBC (Bld) [#/Vol] 5.4 10*3/uL Normal 3.5-11.3 [facility] Comment on above: Performed By: #### C DP, CP, LIPRF, TSHX #### [address] [address] [employer] Furn[employer] Expediter: Tej Locke MD Comp Metabolic Profon 2019 (cont.) Normal [facility] Comment on above: Result Comment: Aver age GFR for 60-69 years old: 85 mL/min/1.73sq m Chronic Kidney Disease: <60 mL/min/1.73sq m Kidney failure: <15 mL/min/1.73sq m eGFR calculated using average adult body mass. Additional eGFR calculator available at: http://www.[employer]/multiple_crcl_2012.htm Performed By: #### C DP, CP, LIPRF, TSHX #### [address] [address] [employer]iter: Tej Locke MD Albumin [Mass/Vol] 4.3 g/dL Normal 3.5-5.2 [facility] Comment on above: Performed By: #### C DP, CP, LIPRF, TSHX #### [address] [address] [employer] Furn[employer] Expediter: Tej Locke MD Albumin/Glob Ratio 1.9 Normal 1.0-2.5 [facility] Comment on above: Performed By: #### C DP, CP, LIPRF, TSHX #### [facility] [address] [place] [address] [employer] Expediter: Tej Locke MD Alkaline Phos 136 U/L High 35-104 [facility] Comment on above: Performed By: #### C DP, CP, LIPRF, TSHX #### [address] [address] [employer]iter: Tej Locke MD ALT [Catalytic activity/Vol] 50 U/L High 5-33 [facility] Comment on above: Performed By: #### C DP, CP, LIPRF, TSHX #### [address] [address] [employer] Expediter: Tej Locke MD Anion gap [Moles/Vol] 12 mmol/L Normal 9-17 [facility] Comment on above: Performed By: #### C DP, CP, LIPRF, TSHX #### [address] [address] [employer] Expediter: Tej Locke MD AST [Catalytic activity/Vol] 28 U/L Normal <32 [facility] Comment on above: Performed By: #### C DP, CP, LIPRF, TSHX #### [facility] [address] [place] [address] [employer] Expediter: Tej Locke MD Bilirubin [Mass/Vol] 0.18 mg/dL Low 0.3-1.2 [facility] Comment on above: Performed By: #### C DP, CP, LIPRF, TSHX #### [facility] [address] [place] [address] [employer]iter: Tej Locke MD Calcium [Mass/Vol] 10.7 mg/dL High 8.6-10.4 [facility] Comment on above: Performed By: #### C DP, CP, LIPRF, TSHX #### [facility] [address] [place] [address] [employer] Expediter: Tej Locke MD Chloride [Moles/Vol] 109 mmol/L High 98-107 [facility] Comment on above: Performed By: #### C DP, CP, LIPRF, TSHX #### [facility] [address] [place] [address] [employer] Expediter: Tej Locke MD CO2 [Moles/Vol] 19 mmol/L Low 20-31 [facility] Comment on above: Performed By: #### C DP, CP, LIPRF, TSHX #### [facility] [address] [place] [address] [employer]iter: Tej Locke MD Creatinine [Mass/Vol] 1.13 mg/dL High 0.50-0.90 [facility] Comment on above: Performed By: #### C DP, CP, LIPRF, TSHX #### [facility] [address] [place] [address] [employer]iter: Tej Locke MD GFR, Amer 59 mL/min Low >60 [facility] Comment on above: Performed By: #### C DP, CP, LIPRF, TSHX #### [address] [address] [employer] Expediter: Tej Locke MD GFR,non Amer 49 mL/min Low >60 [facility] Comment on above: Performed By: #### C DP, CP, LIPRF, TSHX #### [address] [address] [employer]iter: Tej Locke MD Glucose [Mass/Vol] 87 mg/dL Normal 70-99 [facility] Comment on above: Performed By: #### C DP, CP, LIPRF, TSHX #### [address] [address] [employer] Furn[employer] Expediter: Tej Locke MD Potassium [Moles/Vol] 4.4 mmol/L Normal 3.7-5.3 [facility] Comment on above: Performed By: #### C DP, CP, LIPRF, TSHX #### [address] [address] [employer]iter: Tej Locke MD Protein [Mass/Vol] 6.6 g/dL Normal 6.4-8.3 [facility] Comment on above: Performed By: #### C DP, CP, LIPRF, TSHX #### [address] [address] [employer]iter: Tej Locke MD Sodium [Moles/Vol] 140 mmol/L Normal 135-144 [facility] Comment on above: Performed By: #### C DP, CP, LIPRF, TSHX #### [facility] [address] [place] [address] [employer] Expediter: Tej Locke MD Urea nitrogen [Mass/Vol] 21 mg/dL Normal 8-23 [facility] Comment on above: Performed By: #### C DP, CP, LIPRF, TSHX #### [address] [phone] [employer] Expediter: Tej Locke MD Lipid Prof, Fastingon 2019 Cholesterol [Mass/Vol] 139 mg/dL Normal <200 [facility] Comment on above: Result Comment: Cholesterol Guidelines: <200 Desirable 200-240 Borderline >240 Undesirable Performed By: #### C DP, CP, LIPRF, TSHX #### [facility] [address] [place] [address] [employer] Expediter: Tej Locke MD Cholesterol in HDL [Mass/Vol] 46 mg/dL Normal >40 [facility] Comment on above: Result Comment: HDL Guidelines: <40 Undesirable 40-59 Borderline >59 Desirable Performed By: #### C DP, CP, LIPRF, TSHX #### [address] [address] [employer]iter: Tej Locke MD Cholesterol in LDL [Mass/Vol] 73 mg/dL Normal 0-130 [facility] Comment on above: Result Comment: LDL Guidelines: <100 Desirable 100-129 Near to/above Desirable 130-159 Borderline >159 Undesirable Direct (measured) LDL and calculated LDL are not interchangeable tests. Performed By: #### C DP, CP, LIPRF, TSHX #### [facility] [address] [place] [address] [employer]iter: Tej Locke MD Cholesterol.total/Judy sterol in HDL [Mass ratio] 3.0 {ratio} Normal <5 [facility] Comment on above: Performed By: #### C DP, CP, LIPRF, TSHX #### [facility] [address] [place] [address] [employer]iter: Tej Locke MD Triglyceride,Fasting 102 mg/dL Normal <150 [facility] Comment on above: Result Comment: Triglyceride Guidelines: <150 Desirable 150-199 Borderline 200-499 High >499 Very high Based on AHA Guidelines for fasting triglyceride, March 2012. Performed By: #### C DP, CP, LIPRF, TSHX #### [facility] [address] [place] [address] [employer] Expediter: Tej Locke MD TSH w/reflex to FT4on 2019 TSH Qn 1.01 m[IU]/L Normal 0.30-5.00 [facility] Comment on above: Performed By: #### C DP, CP, LIPRF, TSHX #### [facility] [address] [place] [address] [employer]iter: Tej Locke MD CBC Auto Differentialon Basophils (Bld) [#/Vol] 0.06 10*3/uL [place] Basophils/100 WBC (Bld) 1 % 0 - 2 % M [place], [place] Differential Type NOT REPORTED [place] Eosinophils (Bld) [#/Vol] 0.15 10*3/uL [place] Eosinophils/100 WBC (Bld) 3 % 1 - 4 % [place] Erythrocyte distribution width (RBC) [Ratio] 13.2 % 11.8 - 14.4 % [place] Hematocrit (Bld) [Volume fraction] 42.7 % 36.3 - 47.1 % [place] Hemoglobin (Bld) [Mass/Vol] 12.6 g/dL 11.9 - 15.1 g/dL [place] Immature granulocytes (Bld) [#/Vol] 0 % 0 [place] Immature granulocytes (Bld) [#/Vol] 10*3/uL [place] Interpretation and review of laboratory results Abnormal [place] Lymphocytes (Bld) [#/Vol] 1.57 10*3/uL [place] Lymphocytes/100 WBC (Bld) 29 % 24 - 43 % [place] MCH (RBC) [Entitic mass] 32.1 pg 25.2 - 33.5 pg [place] MCHC (RBC) [Mass/Vol] 29.5 g/dL 28.4 - 34.8 g/dL [place] MCV (RBC) [Entitic vol] 108.7 fL High 82.6 - 102.9 fL [place] Monocytes (Bld) [#/Vol] 0.45 10*3/uL [place] Monocytes/100 WBC (Bld) 8 % 3 - 12 % [place] Platelet mean volume (Bld) [Entitic vol] 11.1 fL 8.1 - 13.5 fL [place] Platelets (Bld) [#/Vol] NOT REPORTED [place] Platelets (Bld) [#/Vol] 259 10*3/uL [place] RBC (Bld) [#/Vol] 3.93 10*6/uL Low 3.95 - 5.11 m/uL [place] RBC morphology finding Nom (Bld) MACROCYTOSIS PRESENT [place] Segmented neutrophils/100 WBC (Bld) 59 % 36 - 65 % [place] Segs Absolute 3.12 [place] WBC (Bld) [#/Vol] 5.4 10*3/uL [place] WBC (Bld) [#/Vol] 0.0 10*3/uL 0.0 per 100 WBC [place] WBC Morphology NOT REPORTED [place], [place] CBC with Diffon 03-10-2020 Auto Diff Performed NOT REPORTED Normal [facility] Comment on above: Performed By: #### C DP, CP, LIPRF, TSHX #### [facility] [address] [place] [phone] [employer] Expediter: Tej Locke MD Platelet Estimate NOT REPORTED Normal [facility] Comment on above: Performed By: #### C DP, CP, LIPRF, TSHX #### [facility] [address] [place] [phone] [employer] Expediter: Tej Locke MD WBC Morphology NOT REPORTED Normal [facility] Comment on above: Performed By: #### C DP, CP, LIPRF, TSHX #### [address] [phone] [employer] Expediter: Tej Locke MD Cardiacon 03-10-2020 Cholesterol [Mass/Vol] 139 mg/dL (<200) He [facility] Work Phone: Comment on above: Note: Cholesterol Gu idelines:<200 [id number] Borderline>240 UndesirableResponsible Observer: CCEV AUTOFILE ([id number]) Comp Metabolic Profon 2019 BUN/CRE Ratio NOT REPORTED Normal 02-20 [facility] Comment on above: Performed By: #### C DP, CP, LIPRF, TSHX #### [facility] [address] [place] [phone] [employer] Expediter: Tej Locke MD Staging: NOT REPORTED Normal [facility] Comment on above: Performed By: #### C DP, CP, LIPRF, TSHX #### [facility] [address] [place] [phone] [employer] Expediter: Tej Locke MD Comprehensive Metabolic Pane eusebia 03-10-2020 Albumin [Mass/Vol] 4.3 g/dL 3.5 - 5.2 g/dL [place] Albumin/Globulin [Mass ratio] 1.9 {ratio} [place] ALP [Catalytic activity/Vol] 136 U/L High 35 - 104 U/L [place] ALT [Catalytic activity/Vol] 50 U/L High 5 - 33 U/L [place] Anion gap [Moles/Vol] 12 mmol/L 9 - 17 mmol/L [place] AST [Catalytic activity/Vol] 28 U/L <32 [place] Bilirubin Ql (U) 0.18 mg/dL Low 0.3 - 1.2 mg/dL [place] Bun/Cre Ratio NOT REPORTED [facility] [place] Calcium [Mass/Vol] 10.7 mg/dL High 8.6 - 10. 4 mg/dL [place] Chloride [Moles/Vol] 109 mmol/L High 98 - 10 7 mmol/L [place] CO2 [Moles/Vol] 19 mmol/L Low 20 - 31 mmol/L [place] Creatinine [Mass/Vol] 1.13 mg/dL High 0.5 - 0.9 mg/dL [place] GFR 59 mL/min Low >60 [place] GFR Non- 49 mL/min Low >60 [place] GFR/1.73 sq M predicted among non-blacks MDRD (S/P/Bld) [Vol rate/Area] [place] Comment on above: Average GFR for 60-6 9 years old: 85 mL/min/1.73sq m Chronic Kidney Disease: <60 mL/min/1.73sq m Kidney failure: <15 mL/min/1.73sq m eGFR calculated using average adult body mass. Additional eGFR calculator available at: http://www.[employer] [place]/multiple_crcl_2012.htm GFR/1.73 sq M predicted among non-blacks MDRD (S/P/Bld) [Vol rate/Area] NOT REPORTED [place] Glucose [Mass/Vol] 87 mg/dL 70 - 99 mg/dL [place] Interpretation and review of laboratory results Abnormal [place] Potassium [Moles/Vol] 4.4 mmol/L 3.7 - 5.3 mmol/L [place] Protein [Mass/Vol] 6.6 g/dL 6.4 - 8.3 g/dL [place] Sodium [Moles/Vol] 140 mmol/L 135 - 144 mmol/L [place] Urea nitrogen [Mass/Vol] 21 mg/dL 8 - 23 mg/dL [place] Hematologyon 03-10-2020 Basophils/100 WBC (Bld) 1 % (0-2) [facility]: Comment on above: Note: Responsible Ob server assistant: XNV AUTOFILE ([id number]) Eosinophils (Bld) [#/Vol] 0.15 10*3/uL (0.00-0.44 ) [facility] Work Phone: Comment on above: Note: Responsible Ob server assistant: XNV AUTOFILE ([id number]) Eosinophils/100 WBC (Bld) 3 % (1-4) [facility] Work Phone: Comment on above: Note: Responsible Ob server assistant: [employer]NV AUTOFILE ([id number]) Hematocrit (Bld) [Volume fraction] 42.7 % (36.3-47.1 ) [facility] Work Phone: Comment on above: Note: Responsible Ob server assistant: [employer]NV AUTOFILE ([id number]) Hemoglobin (Bld) [Mass/Vol] 12.6 g/dL (11.9-15.1 ) [facility] Work Phone: Comment on above: Note: Responsible Ob server assistant: XNV AUTOFILE ([id number]) Lymphocytes (Bld) [#/Vol] 1.57 10*3/uL (1.10-3.70 ) [facility] Work Phone: Comment on above: Note: Responsible Ob server assistant: [employer]NV AUTOFILE ([id number]) Lymphocytes/100 WBC (Bld) 29 % (24-43) [facility] Work Phone: Comment on above: Note: Responsible Ob server assistant: XNV AUTOFILE ([id number]) MCH (RBC) [Entitic mass] 32.1 pg (25.2-33.5 ) [facility] Work Phone: Comment on above: Note: Responsible Ob server assistant: XNV AUTOFILE ([id number]) MCV (RBC) [Entitic vol] 108.7 fL High (82. 6-102. 9) [facility] Work Phone: Comment on above: Note: Responsible Ob server assistant: XNV AUTOFILE ([id number]) Monocytes (Bld) [#/Vol] 0.45 10*3/uL (0.1 0-1.20 ) [facility] Work Phone: Comment on above: Note: Responsible Ob server assistant: XNV AUTOFILE ([id number]) Monocytes/100 WBC (Bld) 8 % (3-12) [facility] Work [facility]: Comment on above: Note: Responsible Ob server assistant: XNV AUTOFILE ([id number]) Platelets (Bld) [#/Vol] NOT REPORTED [facility] Work Phone: Platelets (Bld) [#/Vol] 259 10*3/uL (138-453) [facility] Work Phone: Comment on above: Note: Responsible Ob server assistant: XNV AUTOFILE ([id number]) RBC (Bld) [#/Vol] 3.93 10*6/uL Low (3.95-5.11 ) [facility] Work Phone: Comment on above: Note: Responsible Ob server assistant: XNV AUTOFILE ([id number]) RBC morphology finding Nom (Bld) MACROCYTOSIS PRESENT [facility] Work Phone: Comment on above: Note: Responsible Ob server assistant: XNV AUTOFILE ([id number]) WBC (Bld) [#/Vol] 5.4 10*3/uL (3.5-11.3) [facility] Work Phone: Comment on above: Note: Responsible Ob server assistant: XNV AUTOFILE ([id number]) WBC (Bld) [#/Vol] 0.0 per_100_WBC (0.0) He [facility] Work Phone: Comment on above: Note: Responsible Ob server assistant: XNV AUTOFILE ([id number]) Lipid Prof, Fastingon 2019 Cholesterol,VLDL NOT REPORTED Normal 07-02 [facility] Comment on above: Performed By: #### C DP, CP, LIPRF, TSHX #### [facility] [address] [place], [place] [phone] [employer] Furn[employer] Expediter: Tej Locke MD Lipid, Fastingon 03-10-2020 Cholesterol [Mass/Vol] 139 mg/dL <200 [facility] [place] [place] Comment on above: Cholesterol Guidelines: <200 Desirable 200-240 Borderline >240 Undesirable Cholesterol in HDL [Mass/Vol] 46 mg/dL >40 [place] Comment on above: HDL Guidelines: <40 Undesirable 40-59 Borderline >59 Desirable Cholesterol in LDL [Mass/Vol] 73 mg/dL 0 - 130 mg/dL [place] Comment on above: LDL Guidelines: <100 Desirable 100-129 Near to/above Desirable 130-159 Borderline >159 Undesirable Direct (measured) LDL and calculated LDL are not interchangeable tests. Cholesterol in VLDL [Mass/Vol] NOT REPORTED 1 - 30 mg/dL [place] Cholesterol.total/Judy sterol in HDL [Mass ratio] 3 {ratio} <5 [place] Triglyceride, Fasting 102 mg/dL <150 [place], [place] Comment on above: Triglyceride Guidelines: <150 Desirable 150-199 Borderline 200-499 High >499 Very high Based on AHA Guidelines for fasting triglyceride, March 2012. Metabolic Panelon 03-10-2020 Albumin [Mass/Vol] 4.3 g/dL (3.5-5.2) [facility] Work Phone: Comment on above: Note: Responsible Ob server assistant: CCEV AUTOFILE ([id number]) ALT [Catalytic activity/Vol] 50 U/L High (5-33) [facility] Work Phone: Comment on above: Note: Responsible Ob server assistant: CCEV AUTOFILE ([id number]) Anion gap [Moles/Vol] 12 mmol/L (9-17) [facility] Work Phone: Comment on above: Note: Responsible Ob server assistant: CCEV AUTOFILE ([id number]) AST [Catalytic activity/Vol] 28 U/L (<32) [facility] Work Phone: Comment on above: Note: Responsible Ob server assistant: CCEV AUTOFILE ([id number]) Bilirubin [Mass/Vol] 0.18 mg/dL Low (0.3-1.2) [facility] Work Phone: Comment on above: Note: Responsible Ob server assistant: CCEV AUTOFILE ([id number]) Calcium [Mass/Vol] 10.7 mg/dL High (8.6-10.4) [facility] Work Phone: Comment on above: Note: Responsible Ob server assistant: CCEV AUTOFILE ([id number]) Chloride [Moles/Vol] 109 mmol/L High (98-107) [facility] Work Phone: Comment on above: Note: Responsible Ob server assistant: CCEV AUTOFILE ([id number]) CO2 [Moles/Vol] 19 mmol/L Low (20-31) [facility] Work Phone: Comment on above: Note: Responsible Ob server assistant: CCEV AUTOFILE ([id number]) Creatinine [Mass/Vol] 1.13 mg/dL High (0.50- 0.90 ) [facility] Work Phone: Comment on above: Note: Responsible Ob server assistant: CCEV AUTOFILE ([id number]) Glucose [Mass/Vol] 87 mg/dL (70-99) [facility] Work Phone: Comment on above: Note: Responsible Ob server assistant: CCEV AUTOFILE ([id number]) Potassium [Moles/Vol] 4.4 mmol/L (3.7-5.3) [facility] Work Phone: Comment on above: Note: Responsible Ob server assistant: CCEV AUTOFILE ([id number]) Protein [Mass/Vol] 6.6 g/dL (6.4-8.3) [facility] Work Phone: Comment on above: Note: Responsible Ob server assistant: CCEV AUTOFILE ([id number]) Sodium [Moles/Vol] 140 mmol/L (135-144) [facility] Work Phone: Comment on above: Note: Responsible Ob server assistant: CCEV AUTOFILE ([id number]) Urea nitrogen [Mass/Vol] 21 mg/dL (8-23) [facility] Work Phone: Comment on above: Note: Responsible Ob server assistant: CCEV AUTOFILE ([id number]) Otheron 03-10-2020 (cont.) See Note [facility] Work Phone: Comment on above: Note: Average GFR fo r 60-69 years old:85 mL/min/1.73sq mChronic Kidney Disease:<60 mL/min/1.73sq mKidney failure:<15 mL/min/1.73sq meGFR calculated using average adult body mass. Additional eGFR calculatoravailable at:http://www.[employer] [place]/multiple_crcl_2012.htmResponsible Observer: CCEV AUTOFILE ([id number]) Abs. Basophil 0.06 k/uL (0.00-0.20 ) [facility] Work Phone: Comment on above: Note: Responsible Ob server assistant: XNV AUTOFILE ([id number]) Abs.Imm.Granulocyte <0.03 k/uL (0.00-0. 30 ) [facility] Work Phone: Comment on above: Note: Responsible Ob server assistant: XNV AUTOFILE ([id number]) Abs.Neutrophil (Seg) 3.12 k/uL (1.50-8 .10 ) [facility] Work Phone: Comment on above: Note: Responsible Ob server assistant: XNV AUTOFILE ([id number]) Albumin/Glob Ratio 1.9 (1.0-2.5) [facility] Work Phone: Comment on above: Note: Responsible Ob server assistant: CCEV AUTOFILE ([id number]) Alkaline Phos 136 U/L High (35-104) [facility] Work Phone: Comment on above: Note: Responsible Ob server assistant: CCEV AUTOFILE ([id number]) Auto Diff Performed NOT REPORTED [facility]: BUN/CRE Ratio NOT REPORTED (9-20) [facility] Work Phone: Cholesterol,HDL 46 mg/dL (>40) [facility] Work Phone: Comment on above: Note: HDL Guidelines :<40 [id number] Borderline>59 DesirableResponsible Observer: CCEV AUTOFILE ([id number]) Cholesterol,LDL 73 mg/dL (0-130) [facility] Work Phone: Comment on above: Note: LDL Guidelines :<100 [id number] Near to/above [id number] Borderline>159 UndesirableDirect (measured) LDL and calculated LDL are not interchangeable tests.Responsible Observer: CCEV AUTOFILE ([id number]) Cholesterol,VLDL NOT REPORTED mg/dL (1-30) [facility] Work Phone: Cholesterol.total/Judy sterol in HDL [Mass ratio] 3.0 {ratio} (<5) [facility] Work Phone: Comment on above: Note: Responsible Ob server assistant: CCEV AUTOFILE ([id number]) Erythrocyte distribution width (RBC) [Ratio] 13.2 % (11.8-14.4 ) [facility] Work Phone: Comment on above: Note: Responsible Ob server assistant: XNV AUTOFILE ([id number]) GFR, Amer 59 mL/min Low (>60) [facility] Work Phone: Comment on above: Note: Responsible Ob server assistant: CCEV AUTOFILE (3002) GFR,non Amer 49 mL/min Low (>60) [facility] Work Phone: Comment on above: Note: Responsible Ob server assistant: CCEV AUTOFILE ([id number]) Immature granulocytes (Bld) [#/Vol] 0 % (0) [facility] Work Phone: Comment on above: Note: Responsible Ob server assistant: XNV AUTOFILE ([id number]) MCHC (RBC) [Mass/Vol] 29.5 g/dL (28.4- 34.8 ) [facility] Work Phone: Comment on above: Note: Responsible Ob server assistant: XNV AUTOFILE (301) Performing Lab: see note [facility] Work Phone: Comment on above: Note: MICHELLE Emily Kinney [address] [facility] [address] Platelet mean volume (Bld) [Entitic vol] 11.1 fL (8.1-13.5) [facility] Work Phone: Comment on above: Note: Responsible Ob server assistant: XNV AUTOFILE ([id number]) Reported Physicians See Note [facility] Work Phone: Comment on above: Note: Reported Physi cians:Ordering: Cotton, AimeeAttending: Cotton, AimeeReferring: Cotton, Karla Segmented neutrophils/100 WBC (Bld) 59 % (36-65) [facility] Work Phone: Comment on above: Note: Responsible Ob server assistant: XNV AUTOFILE ([id number]) Staging: NOT REPORTED [facility] Work Phone: Thyroid Stim. Horm. 1.01 mIU/L (0.30-5. 00 ) [facility] Work Phone: Comment on above: Note: Responsible Ob server assistant: NA ARORA ([id number]) Triglyceride,Fasting 102 mg/dL (<150) [facility] Work Phone: Comment on above: Note: Triglyceride G uidelines:<150 [id number] High>499 Very highBased on AHA Guidelines for fasting triglyceride, March 2012.Responsible Observer: CCEV AUTOFILE ([id number]) WBC Morphology NOT REPORTED [facility] Work Phone: TSH with Reflexon 03-10-2020 TSH Qn 1.01 m[IU]/L [facility] [id number] [facility], [place] Creatinine, Serumon 08-03-19 Creatinine [Mass/Vol] 1.06 mg/dL High 0.5 - 0.9 mg/dL [facility] [id number] [facility] [place] GFR >60 >60 mL/min [facility] [employer] [place] GFR Non- 53 mL/min Low >60 [place] Interpretation and review of laboratory results Abnormal [place] Glucose, randomon 08-03-2019 Glucose [Mass/Vol] 98 mg/dL 70 - 99 mg/dL [place] Lipid Panelon 08-03-2019 Cholesterol [Mass/Vol] 145 mg/dL <200 Me [place], [place] Comment on above: Cholesterol Guidelines: <200 Desirable 200-240 Borderline >240 Undesirable Cholesterol in HDL [Mass/Vol] 54 mg/dL >40 [place] Comment on above: HDL Guidelines: <40 Undesirable 40-59 Borderline >59 Desirable Cholesterol in LDL [Mass/Vol] 75 mg/dL 0 - 130 mg/dL [place] Comment on above: LDL Guidelines: <100 Desirable 100-129 Near to/above Desirable 130-159 Borderline >159 Undesirable Direct (measured) LDL and calculated LDL are not interchangeable tests. Cholesterol in VLDL [Mass/Vol] NOT REPORTED 1 - 30 mg/dL [place] Cholesterol.total/Judy sterol in HDL [Mass ratio] 2.7 {ratio} <5 [place] Triglyceride [Mass/Vol] 80 mg/dL <150 M [place], [place] Comment on above: Triglyceride Guidelines: <150 Desirable 150-199 Borderline 200-499 High >499 Very high Based on AHA Guidelines for fasting triglyceride, March 2012. [place] Levelon 08-03-2019 [place] Date Last Dose NOT REPORTED [place] Dose Amount NOT REPORTED [place] Dose Time NOT REPORTED [place] Lvl 1.1 mmol/L 0.6 - 1.2 mmol/L [place] Metabolic Panelon 08-03-2019 GFR/1.73 sq M predicted among non-blacks MDRD (S/P/Bld) [Vol rate/Area] [place], [place] Comment on above: Average GFR for 60-6 9 years old: 85 mL/min/1.73sq m Chronic Kidney Disease: <60 mL/min/1.73sq m Kidney failure: <15 mL/min/1.73sq m eGFR calculated using average adult body mass. Additional eGFR calculator available at: http://www.[employer] [place]/multiple_crcl_2012.htm Stage 1: Some kidney damage normal GFR Stage 2: Mild kidney damage GFR 60-89 Stage 3: Moderate kidney damage GFR 30-59 Stage 4: Severe kidney damage GFR 15-29 Stage 5: Severe kidney damage GFR <15 ESRD - chronic treatment by dialysis or transplant TSH without Reflexon 020 TSH Qn 1.45 m[IU]/L [place], [place] US BREAST LIMITED LEFTon 1. Previously [...] sent to the patient regarding the results. [place], [place] EXAMINATION: TARGETE D ULTRASOUND OF THE [...] this region as no target was demonstrated. [place], [place], [employer] Incoming Radiant Results From [employer] [facility] - 04/10/2019 12:52 PM EST EXAMINATION: TARGETED [...] sent to the patient regarding the results. [facility]- [place], [place] US BREAST COMPLETE LEFTon 2 site biopsy [...] patient at the time of service. A telesales representative from the radiology department will be contacting your office and assisting the patient in getting appropriate follow-up. [facility] [employer] [place] EXAMINATION: TARGETE D ULTRASOUND OF THE LEFT [...] images of the axilla show no lymphadenopathy. [place], [place], pn Incoming Radiant Results From [employer] [facility] - 03/11/2019 1:56 PM EDT EXAMINATION: TARGETED [...] patient at the time of service. A telesales representative from the radiology department will be contacting your office and assisting the patient in getting appropriate follow-up. [facility] (MIN 3 VIEWS)o n 02-16-2019 No acute osseous abnormality. 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 [facility] MAHESH CREWS EXAMINATION: THREE X RAY VIEWS OF THE RIGHT FOOT 02/16/2019 11:39 am COMPARISON: None. 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 Lisfranc alignment is normal. 5th metatarsal base is intact. Talonavicular degenerative change. [facility] MAHESH CREWS [place], [employer] Incoming Radiant Results From [employer] [facility] - 02/16/2019 12:08 PM EDT EXAMINATION: THREE [...] abnormality. 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 [facility] MAHESH CREWS [facility] 11-14-2018 Cholesterol [Mass/Vol] 150 mg/dL (<200) [facility] Work Phone: Comment on above: Note: Cholesterol Gu idelines: <200 Desirable 200-240 Borderline >240 Undesirable Responsible Observer: CET TWO AUTOFILE ([id number]) Triglyceride [Mass/Vol] 147 mg/dL (<150) [facility] Work Phone: Comment on above: Note: Triglyceride G uidelines: <150 Desirable 150-199 Borderline 200-499 High >499 Very high Based on AHA Guidelines for fasting triglyceride, March 2012. Responsible Observer: CET TWO AUTOFILE ([id number]) Hematologyon 11-14-2018 Basophils/100 WBC (Bld) 1 % (0-2) [facility] Work Phone: Comment on above: Note: Responsible Ob server assistant: XNT AUTOFILE ([id number]) Eosinophils (Bld) [#/Vol] 0.15 10*3/uL (0.00-0.44 ) [facility] Work Phone: Comment on above: Note: Responsible Ob server assistant: XNT AUTOFILE ([id number]) Eosinophils/100 WBC (Bld) 3 % (1-4) [facility] Work Phone: Comment on above: Note: Responsible Ob server assistant: XNT AUTOFILE ([id number]) Hematocrit (Bld) [Volume fraction] 39.9 % (36.3-47.1 ) [facility] Work Phone: Comment on above: Note: Responsible Ob server assistant: XNT AUTOFILE ([id number]) Hemoglobin (Bld) [Mass/Vol] 12.5 g/dL (11.9-15.1 ) [facility] Work Phone: Comment on above: Note: Responsible Ob server assistant: XNT AUTOFILE ([id number]) Lymphocytes (Bld) [#/Vol] 1.97 10*3/uL (1.10-3.70 ) [facility] Work Phone: Comment on above: Note: Responsible Ob server assistant: XNT AUTOFILE ([id number]) Lymphocytes/100 WBC (Bld) 36 % (24-43) [facility] Work Phone: Comment on above: Note: Responsible Ob server assistant: XNT AUTOFILE ([id number]) MCH (RBC) [Entitic mass] 31.2 pg (25.2-33.5 ) [facility] Work Phone: Comment on above: Note: Responsible Ob server assistant: XNT AUTOFILE ([id number]) MCV (RBC) [Entitic vol] 99.5 fL (82. 6-102. 9) [facility] Work Phone: Comment on above: Note: Responsible Ob server assistant: XNT AUTOFILE ([id number]) Monocytes (Bld) [#/Vol] 0.54 10*3/uL (0.1 0-1.20 ) [facility] Work Phone: Comment on above: Note: Responsible Ob server assistant: XNT AUTOFILE ([id number]) Monocytes/100 WBC (Bld) 10 % (3-12) [facility]: Comment on above: Note: Responsible Ob server assistant: XNT AUTOFILE (3019) Platelets (Bld) [#/Vol] NOT REPORTED [facility] Work Phone: Platelets (Bld) [#/Vol] 269 10*3/uL (138-453) [facility] Work Phone: Comment on above: Note: Responsible Ob server assistant: XNT AUTOFILE (3019) RBC (Bld) [#/Vol] 4.01 10*6/uL (3.95-5.11 ) [facility] Work Phone: Comment on above: Note: Responsible Ob server assistant: XNT AUTOFILE ([id number]) RBC morphology finding Nom (Bld) NOT REPORTED [facility] Work Phone: WBC (Bld) [#/Vol] 0.0 per_100_WBC (0.0) [facility] Work Phone: Comment on above: Note: Responsible Ob server assistant: XNT AUTOFILE ([id number]) WBC (Bld) [#/Vol] 5.5 10*3/uL (3.5-11.3) [facility] Work Phone: Comment on above: Note: Responsible Ob server assistant: XNT AUTOFILE ([id number]) Metabolic Panelon 11-14-2018 Albumin [Mass/Vol] 4.4 g/dL (3.5-5.2) [facility] Work Phone: Comment on above: Note: Responsible Ob server assistant: CET TWO AUTOFILE (3006) ALT [Catalytic activity/Vol] 18 U/L (5-33) [facility] Work Phone: Comment on above: Note: Responsible Ob server assistant: CET TWO AUTOFILE (3006) Anion gap [Moles/Vol] 9 mmol/L (9-17) [facility] Work Phone: Comment on above: Note: Responsible Ob server assistant: CET TWO AUTOFILE (3006) AST [Catalytic activity/Vol] 15 U/L (<32) [facility] Work Phone: Comment on above: Note: Responsible Ob server assistant: CET TWO AUTOFILE (3006) Bilirubin [Mass/Vol] 0.35 mg/dL (0.3-1.2) [facility] Work Phone: Comment on above: Note: Responsible Ob server assistant: CET TWO AUTOFILE (3006) Calcium [Mass/Vol] 10.8 mg/dL High (8.6-10.4) [facility] Work Phone: Comment on above: Note: Responsible Ob server assistant: CET TWO AUTOFILE (3006) Chloride [Moles/Vol] 109 mmol/L High (98-107) [facility] Work Phone: Comment on above: Note: Responsible Ob server assistant: CET TWO AUTOFILE (3006) CO2 [Moles/Vol] 24 mmol/L (20-31) [facility] Work Phone: Comment on above: Note: Responsible Ob server assistant: CET TWO AUTOFILE (3006) Creatinine [Mass/Vol] 1.07 mg/dL High (0.50- 0.90 ) [facility] Work Phone: Comment on above: Note: Responsible Ob server assistant: CET TWO AUTOFILE (3006) Glucose [Mass/Vol] 101 mg/dL High (70-99) [facility] Work Phone: Comment on above: Note: Responsible Ob server assistant: CET TWO AUTOFILE (3006) Potassium [Moles/Vol] 4.3 mmol/L (3.7-5.3) [facility] Work Phone: Comment on above: Note: Responsible Ob server assistant: CET TWO AUTOFILE (3006) Protein [Mass/Vol] 7.1 g/dL (6.4-8.3) [facility] Work Phone: Comment on above: Note: Responsible Ob server assistant: CET TWO AUTOFILE (3006) Sodium [Moles/Vol] 142 mmol/L (135-144) [facility] Work Phone: Comment on above: Note: Responsible Ob server assistant: CET TWO AUTOFILE (3006) Urea nitrogen [Mass/Vol] 15 mg/dL (8-23) [facility] Work Phone: Comment on above: Note: Responsible Ob server assistant: CET TWO AUTOFILE ([id number]) Otheron 11-14-2018 (cont.) See Note [facility] Work Phone: Comment on above: Note: Average GFR fo r 60-69 years old: 85 mL/min/1.73sq mChronic Kidney Disease: <60 mL/min/1.73sq mKidney failure: <15 mL/min/1.73sq m eGFR calculated using average adult body mass. Additional eGFR calculator available at: http://www.[employer]/multiple_crcl_2012.htm Responsible Observer: CET TWO AUTOFILE (3006) Abs. Basophil 0.04 k/uL (0.00-0.20 ) [facility] Work Phone: Comment on above: Note: Responsible Ob server assistant: XNT AUTOFILE ([id number]) Abs.Imm.Granulocyte <0.03 k/uL (0.00-0. 30 ) [facility] Work Phone: Comment on above: Note: Responsible Ob server assistant: XNT AUTOFILE ([id number]) Abs.Neutrophil (Seg) 2.77 k/uL (1.50-8 .10 ) [facility] Work Phone: Comment on above: Note: Responsible Ob server assistant: XNT AUTOFILE ([id number]) Albumin/Glob Ratio 1.6 (1.0-2.5) [facility] Work Phone: Comment on above: Note: Responsible Ob server assistant: CET TWO AUTOFILE (3006) Alkaline Phos 135 U/L High (35-104) [facility] Work Phone: Comment on above: Note: Responsible Ob server assistant: CET TWO AUTOFILE (3006) Auto Diff Performed NOT REPORTED [facility] Work Phone: BUN/CRE Ratio 14 (9-20) [facility] Work Phone: Comment on above: Note: Responsible Ob server assistant: CET TWO AUTOFILE (3006) Cholesterol,HDL 44 mg/dL (>40) [facility] Work Phone: Comment on above: Note: HDL Guidelines : <40 Undesirable 40-59 Borderline >59 Desirable Responsible Observer: CET TWO AUTOFILE (3006) Cholesterol,LDL 77 mg/dL (0-130) [facility] Work Phone: Comment on above: Note: LDL Guidelines : <100 Desirable 100-129 Near to/above Desirable 130-159 Borderline >159 Undesirable Direct (measured) LDL and calculated LDL are not interchangeable tests.Responsible Observer: CET TWO AUTOFILE (3006) Cholesterol,VLDL NOT REPORTED mg/dL (1-30) [facility] Work Phone: Cholesterol.total/Judy sterol in HDL [Mass ratio] 3.4 {ratio} (<5) [facility] Work Phone: Comment on above: Note: Responsible Ob server assistant: CET TWO AUTOFILE (3006) Erythrocyte distribution width (RBC) [Ratio] 13.2 % (11.8-14.4 ) [facility] Work Phone: Comment on above: Note: Responsible Ob server assistant: XNT AUTOFILE ([id number]) GFR, Amer >60 mL/min (>60) [facility] Work Phone: Comment on above: Note: Responsible Ob server assistant: CET TWO AUTOFILE (3006) GFR,non Amer 52 mL/min Low (>60) [facility] Work Phone: Comment on above: Note: Responsible Ob server assistant: CET TWO AUTOFILE (3006) Immature granulocytes (Bld) [#/Vol] 0 % (0) [facility] Work Phone: Comment on above: Note: Responsible Ob server assistant: XNT AUTOFILE (3018) MCHC (RBC) [Mass/Vol] 31.3 g/dL (28.4- 34.8 ) [facility] Work Phone: Comment on above: Note: Responsible Ob server assistant: XNT AUTOFILE ([id number]) Performing Lab: see note [facility] Work Phone: Comment on above: Note: [facility] [address] [place] [address] Platelet mean volume (Bld) [Entitic vol] 10.8 fL (8.1-13.5) [facility] Work Phone: Comment on above: Note: Responsible Ob server assistant: XNT AUTOFILE (3) Reported Physicians See Note [facility] Work Phone: Comment on above: Note: Reported Physi cians:Ordering: Cotton, AimeeAttending: Cotton, AimeeReferring: Cotton, Karla Segmented neutrophils/100 WBC (Bld) 50 % (36-65) [facility] Work Phone: Comment on above: Note: Responsible Ob server assistant: XNT AUTOFILE (2) Staging: See Note [facility] Work Phone: Comment on above: Note: Stage 1: Some kidney damage normal GFRStage 2: Mild kidney damage GFR 60-89Stage 3: Moderate kidney damage GFR 30-59Stage 4: Severe kidney damage GFR 15-29Stage 5: Severe kidney damage GFR <15ESRD - chronic treatment by dialysis or transplantResponsible Observer: CET TWO AUTOFILE (3006) Thyroid Stim. Horm. 1.05 mIU/L (0.30-5. 00 ) [facility] Work Phone: Comment on above: Note: Responsible Ob server assistant: CET TWO AUTOFILE (3006) Thyroxine, Free 0.93 ng/dL (0.93-1.70 ) [facility] Work Phone: Comment on above: Note: Responsible Ob server assistant: CET TWO AUTOFILE (3006) WBC Morphology NOT REPORTED [facility] Work Phone: [facility] 09-24-2018 Cholesterol [Mass/Vol] 171 mg/dL (<200) [facility] Work Phone: Comment on above: Note: Cholesterol Gu idelines: <200 Desirable 200-240 Borderline >240 Undesirable Responsible Observer: MORRIS LOUISE (MHT) (Jing) Triglyceride [Mass/Vol] 400 mg/dL High (<150) [facility] Work Phone: Comment on above: Note: Triglyceride G uidelines: <150 Desirable 150-199 Borderline 200-499 High >499 Very high Based on AHA Guidelines for fasting triglyceride, March 2012. Responsible Observer: MORRIS Boyd (MHT)) Hematologyon 09-24-2018 Basophils/100 WBC (Bld) 1 % (0-2) [facility] Work Phone: Comment on above: Note: Responsible Ob server assistant: XNT AUTOFILE ([id number]) Eosinophils (Bld) [#/Vol] 0.15 10*3/uL (0.00-0.44 ) [facility] Work Phone: Comment on above: Note: Responsible Ob server assistant: XNT AUTOFILE ([id number]) Eosinophils/100 WBC (Bld) 2 % (1-4) [facility] Work Phone: Comment on above: Note: Responsible Ob server assistant: XNT AUTOFILE (3019) Hematocrit (Bld) [Volume fraction] 42.8 % (36.3-47.1 ) [facility] Work Phone: Comment on above: Note: Responsible Ob server assistant: XNT AUTOFILE ([id number]) Hemoglobin (Bld) [Mass/Vol] 13.7 g/dL (11.9-15.1 ) [facility] Work Phone: Comment on above: Note: Responsible Ob server assistant: XNT AUTOFILE ([id number]) Lymphocytes (Bld) [#/Vol] 1.73 10*3/uL (1.10-3.70 ) [facility] Work Phone: Comment on above: Note: Responsible Ob server assistant: XNT AUTOFILE (9) Lymphocytes/100 WBC (Bld) 24 % (24-43) [facility] Work Phone: Comment on above: Note: Responsible Ob server assistant: XNT AUTOFILE ([id number]) MCH (RBC) [Entitic mass] 31.1 pg (25.2-33.5 ) [facility] Work Phone: Comment on above: Note: Responsible Ob server assistant: XNT AUTOFILE (3018) MCV (RBC) [Entitic vol] 97.3 fL (82. 6-102. 9) [facility] Work Phone: Comment on above: Note: Responsible Ob server assistant: XNT AUTOFILE (3018) Monocytes (Bld) [#/Vol] 0.64 10*3/uL (0.1 0-1.20 ) [facility] Work Phone: Comment on above: Note: Responsible Ob server assistant: XNT AUTOFILE (3018) Monocytes/100 WBC (Bld) 9 % (3-12) [facility]: Comment on above: Note: Responsible Ob server assistant: XNT AUTOFILE (3018) Platelets (Bld) [#/Vol] NOT REPORTED [facility] Work Phone: Platelets (Bld) [#/Vol] 280 10*3/uL (138-453) [facility] Work Phone: Comment on above: Note: Responsible Ob server assistant: XNT AUTOFILE (3018) RBC (Bld) [#/Vol] 4.40 10*6/uL (3.95-5.11 ) [facility] Work Phone: Comment on above: Note: Responsible Ob server assistant: XNT AUTOFILE (3018) RBC morphology finding Nom (Bld) NOT REPORTED [facility] Work Phone: WBC (Bld) [#/Vol] 7.3 10*3/uL (3.5-11.3) [facility] Work Phone: Comment on above: Note: Responsible Ob server assistant: XNT AUTOFILE (3019) WBC (Bld) [#/Vol] 0.0 per_100_WBC (0.0) [facility] Work Phone: Comment on above: Note: Responsible Ob server assistant: XNT AUTOFILE (6409) Metabolic Panelon 09-24-2018 Albumin [Mass/Vol] 4.2 g/dL (3.5-5.2) [facility] Work Phone: Comment on above: Note: Responsible Ob server assistant: MORRIS (MHT) ASPEN (1932) ALT [Catalytic activity/Vol] 16 U/L (5-33) [facility] Work Phone: Comment on above: Note: Responsible Ob server assistant: MORRIS (MHT) ASPEN (1932) Anion gap [Moles/Vol] 16 mmol/L [facility] Work Phone: Comment on above: Note: Responsible Ob server assistant: MORRIS (MHT) ASPEN (1932) AST [Catalytic activity/Vol] 14 U/L (<32) [facility] Work Phone: Comment on above: Note: Responsible Ob server assistant: MORRIS (ALYSSAT) ASPEN (1932) Bilirubin [Mass/Vol] mg/dL Low (0.3-1.2) [facility] Work Phone: Comment on above: Note: Responsible Ob server assistant: MORRIS (MHT) ASPEN (1932) Calcium [Mass/Vol] 11.2 mg/dL High (8.6-10.4) [facility] Work Phone: Comment on above: Note: Responsible Ob server assistant: MORRIS (ALYSSAT) ASPEN (1932) Chloride [Moles/Vol] 103 mmol/L (98-107) [facility] Work Phone: Comment on above: Note: UNABLE TO CALC ULATE GAP, SPECIMEN REPEATEDCORRECTED ON 09/24 AT 1740: PREVIOUSLY REPORTED 112Responsible Observer: MORRIS LOUISE (MHT) (1932) CO2 [Moles/Vol] 22 mmol/L (20-31) [facility] Work Phone: Comment on above: Note: UNABLE TO CALC ULATE GAP, SPECIMEN REPEATEDCORRECTED ON 09/24 AT 1740: PREVIOUSLY REPORTED 24Responsible Observer: MORRIS LOUISE (MHT) (1933) Creatinine [Mass/Vol] 0.93 mg/dL High (0.50- 0.90 ) [facility] Work Phone: Comment on above: Note: Responsible Ob server assistant: MORRIS LOUISE (MHT) (1932) Glucose [Mass/Vol] 91 mg/dL (70-99) [facility] Work Phone: Comment on above: Note: Responsible Ob server assistant: MORRIS LOUISE (MHT) (1933) Potassium [Moles/Vol] 4.5 mmol/L (3.7-5.3) [facility] Work Phone: Comment on above: Note: UNABLE TO CALC ULATE GAP, SPECIMEN REPEATEDCORRECTED ON 09/24 AT 1740: PREVIOUSLY REPORTED 4.0Responsible Observer: MORRIS LOUISE (MHT) (1932) Protein [Mass/Vol] 7.0 g/dL (6.4-8.3) [facility] Work Phone: Comment on above: Note: Responsible Ob server assistant: MORRIS LOUISE (MHT) (1932) Sodium [Moles/Vol] 141 mmol/L (135-144) [facility] Work Phone: Comment on above: Note: UNABLE TO CALC ULATE GAP, SPECIMEN REPEATEDCORRECTED ON 09/24 AT 1740: PREVIOUSLY REPORTED 133Responsible Observer: MORRIS LOUISE (MHT) (1932) Urea nitrogen [Mass/Vol] 17 mg/dL (8-23) [facility] Work Phone: Comment on above: Note: Responsible Ob server assistant: MORRIS LOUISE (MHT) (1932) Otheron 09-24-2018 (cont.) See Note [facility] Work Phone: Comment on above: Note: Average GFR fo r 60-69 years old: 85 mL/min/1.73sq mChronic Kidney Disease: <60 mL/min/1.73sq mKidney failure: <15 mL/min/1.73sq m eGFR calculated using average adult body mass. Additional eGFR calculator available at: http://www.[employer] [place]/multiple_crcl_2012.htm Responsible Observer: MORRIS LOUISE (MHT) (1932) Abs. Basophil 0.04 k/uL (0.00-0.20 ) [facility] Work Phone: Comment on above: Note: Responsible Ob server assistant: XNT AUTOFILE ([id number]) Abs.Imm.Granulocyte 0.03 k/uL (0.00-0. 30 ) [facility] Work Phone: Comment on above: Note: Responsible Ob server assistant: XNT AUTOFILE ([id number]) Abs.Neutrophil (Seg) 4.73 k/uL (1.50-8 .10 ) [facility] Work Phone: Comment on above: Note: Responsible Ob server assistant: XNT AUTOFILE ([id number]) Albumin/Glob Ratio 1.5 (1.0-2.5) [facility] Work Phone: Comment on above: Note: Responsible Ob server assistant: MORRIS LOUISE (MHT) (1932) Alkaline Phos 124 U/L High (35-104) [facility] Work Phone: Comment on above: Note: Responsible Ob server assistant: MORRIS LOUISE (MHT) (1932) Auto Diff Performed NOT REPORTED [facility] Work Phone: BUN/CRE Ratio 18 (9-20) [facility] Work Phone: Comment on above: Note: Responsible Ob server assistant: MORRIS LOUISE (MHT) (1932) Cholesterol,HDL 42 mg/dL (>40) [facility] Work Phone: Comment on above: Note: HDL Guidelines : <40 Undesirable 40-59 Borderline >59 Desirable Responsible Observer: MORRIS LOUISE (MHT) (1932) Cholesterol,LDL 49 mg/dL (0-130) [facility] Work Phone: Comment on above: Note: LDL Guidelines : <100 Desirable 100-129 Near to/above Desirable 130-159 Borderline >159 Undesirable Direct (measured) LDL and calculated LDL are not interchangeable tests.Responsible Observer: MORRIS LOUISE (MHT) (1932) Cholesterol,VLDL NOT REPORTED mg/dL (1-30) [facility] Work Phone: Cholesterol.total/Judy sterol in HDL [Mass ratio] 4.1 {ratio} (<5) [facility] Work Phone: Comment on above: Note: Responsible Ob server assistant: MORRIS LOUISE (MHT) (1932) Erythrocyte distribution width (RBC) [Ratio] 12.7 % (11.8-14.4 ) [facility] Work Phone: Comment on above: Note: Responsible Ob server assistant: XNT AUTOFILE ([id number]) GFR, Amer >60 mL/min (>60) [facility] Work Phone: Comment on above: Note: Responsible Ob server assistant: MORRIS LOUISE (MHT) (1932) GFR,non Amer >60 mL/min (>60) [facility] Work Phone: Comment on above: Note: Responsible Ob server assistant: MORRIS LOUISE (MHT) (1932) Immature granulocytes (Bld) [#/Vol] 0 % (0) [facility] Work Phone: Comment on above: Note: Responsible Ob server assistant: XNT AUTOFILE ([id number]) MCHC (RBC) [Mass/Vol] 32.0 g/dL (28.4- 34.8 ) [facility] Work Phone: Comment on above: Note: Responsible Ob server assistant: XNT AUTOFILE ([id number]) Performing Lab: see note [facility] Work Phone: Comment on above: Note: [facility] [address] [place] [address] Platelet mean volume (Bld) [Entitic vol] 11.0 fL (8.1-13.5) [facility] Work Phone: Comment on above: Note: Responsible Ob server assistant: XNT AUTOFILE ([id number]) Reported Physicians See Note [facility] Work Phone: Comment on above: Note: Reported Physi cians:Ordering: Cotton AimeeAttending: Cotton, AimeeReferring: Cotton, Karla Segmented neutrophils/100 WBC (Bld) 64 % (36-65) [facility] Work Phone: Comment on above: Note: Responsible Ob server assistant: XNT AUTOFILE ([id number]) Staging: See Note [facility] Work Phone: Comment on above: Note: Stage 1: Some kidney damage normal GFRStage 2: Mild kidney damage GFR 60-89Stage 3: Moderate kidney damage GFR 30-59Stage 4: Severe kidney damage GFR 15-29Stage 5: Severe kidney damage GFR <15ESRD - chronic treatment by dialysis or transplantResponsible Observer: MORRIS Snyder (MHT)1932) Thyroid Stim. Horm. 1.08 mIU/L (0.30-5. 00 ) [facility] Work Phone: Comment on above: Note: Responsible Ob server assistant: MORRIS LOUISE (MHT) (1932) Thyroxine, Free 0.97 ng/dL (0.93-1.70 ) [facility] Work Phone: Comment on above: Note: Responsible Ob server assistant: MORRIS LOUISE (MHT) (1932) WBC Morphology NOT REPORTED [facility] Work Phone: Hematologyon 07-31-2018 pH (Bld) Negative Normal (5.0/6.0/6 .5/7.0/7.5 /8.0/8.5) [facility] Work Phone: Laboratory - Chemistry and C hemistry - challengeOrdered By: Karla Clark on 07-31-2018 Bilirubin [Mass/Vol] Negative Normal (Neg/Sm all /Moderate/ Large) [facility] Work Phone: Glucose [Mass/Vol] Negative Normal (NEG/100/ 2 50/500/100 or more) [facility] Work Phone: Ketones Ql (U) Negative Normal (Neg/Small /Moderate/ Large) [facility] Work Phone: pH (Bld) Negative Normal (5.0/6.0/6 .5/7.0/7.5 /8.0/8.5) [facility] Work Phone: Protein [Mass/Vol] Negative Normal (Neg/Trac e /30/100/30 or more) [facility] Work Phone: Urobilinogen (U) [Mass/Vol] Negative Normal (t) [facility] Work Phone: Specific gravity (U) [Rel density] 1.000 Normal (1.000/1.0 05/1.101/1 .015/1.020 /1.025/1.0 30) [facility] Work Phone: Laboratory - UrinalysisOrder ed By: Karla Clark on 07-31-2018 Nitrite Ql (U) Negative Normal (Neg/Pos) [facility] Work Phone: Metabolic Panelon 07-31-2018 Bilirubin [Mass/Vol] Negative Normal (Neg/Sm all /Moderate/ Large) [facility] Work Phone: Glucose [Mass/Vol] Negative Normal (NEG/100/ 2 50/500/100 or more) [facility] Work Phone: Protein [Mass/Vol] Negative Normal (Neg/Trac e /30/100/30 or more) [facility] Work Phone: No Panel InformationOrdered By: Karla Clark on 07-31-2018 Blood Negative Normal (Neg/NH-Tr pedro/NH-Mod erate/H-Tr pedro/H-smal l/H-Modera t) [facility] Work Phone: All Values Normal abnormal Abnormal (NORMAL) [facility] Work Phone: Leukocyates trace Abnormal (Neg/Trace /Small/Mod erate/Larg e) [facility] Work Phone: Otheron 07-31-2018 Blood Negative Normal (Neg/NH-Tr pedro/NH-Mod erate/H-Tr pedro/H-smal l/H-Modera t) [facility] Work Phone: Nitrite Ql (U) Negative Normal (Neg/Pos) [facility] Work Phone: Urobilinogen Qn (U) Negative Normal (t) [facility] Work Phone: Urinalysison 07-31-2018 Ketones Ql (U) Negative Normal (Neg/Small /Moderate/ Large) [facility] Work Phone: Cardiacon 09-26-2017 Cholesterol mass conc 195 mg/dL Invalid Interpretation Code <200 [facility] Cholesterol mass conc 195 mg/dL Invalid Interpretation Code <200 [facility] Hematologyon 09-26-2017 Basophils Auto #/vol (Bld) 0.070 10*3/uL Invalid Interpretation Code 0.00-0.20 [facility] Basophils/100 WBC Auto (Bld) 1 % Invalid Interpretation Code 0-2 [facility] Eosinophils Auto #/vol (Bld) 2 10*3/uL Invalid Interpretation Code 1-4 [facility] Eosinophils Auto #/vol (Bld) 0.140 10*3/uL Invalid Interpretation Code 0.00-0.44 [facility] Erythrocyte distribution width Auto Ratio (RBC) 13.2 % Invalid Interpretation Code 11.8-14.4 [facility] Hematocrit Auto Volume Fraction (Bld) 44.2 % Invalid Interpretation Code 36.3-47.1 [facility] Hemoglobin mass conc (Bld) 13.5 g/dL Invalid Interpretation Code 11.9-15.1 [facility] Lymphocytes Auto #/vol (Bld) 31 10*3/uL Invalid Interpretation Code 24-43 [facility] Lymphocytes Auto #/vol (Bld) 2.240 10*3/uL Invalid Interpretation Code 1.10-3.70 [facility] MCH Auto Entitic mass (RBC) 31.0 pg Invalid Interpretation Code 25.2-33.5 [facility] MCHC Auto mass conc (RBC) 30.5 g/dL Invalid Interpretation Code 28.4-34.8 [facility] MCV Auto Entitic volume (RBC) 101.4 fL Invalid Interpretation Code 82.6-102.9 [facility] Monocytes Auto #/vol (Bld) 9 10*3/uL Invalid Interpretation Code 3-12 [facility] Monocytes Auto #/vol (Bld) 0.640 10*3/uL Invalid Interpretation Code 0.10-1.20 [facility] Neutrophils Auto #/vol (Bld) 4.10 10*3/uL Invalid Interpretation Code 1.50-8.10 [facility] Platelet mean volume Auto Entitic volume (Bld) 11.7 fL Invalid Interpretation Code 8.1-13.5 [facility] RBC Auto #/vol (Bld) 4.36 10*6/uL Invalid Interpretation Code 3.95-5.11 [facility] WBC Auto #/vol (Bld) 7.2 10*3/uL Invalid Interpretation Code 3.5-11.3 [facility] Basophils Auto #/vol (Bld) 0.070 10*3/uL Invalid Interpretation Code 0.00-0.20 [facility] Basophils/100 WBC (Bld) 1 % 0-2 [facility] Bas[facility]/100 WBC Auto (Bld) 1 % Invalid Interpretation Code 0-2 [facility] Eosinophils 0.14 10*3/uL Invalid Interpretation Code 0.00-0.44 [facility] Eosinophils 2 10*3/uL Invalid Interpretation Code 1-4 [facility] Eosinophils #/vol (Bld) 0.14 10*3/uL 0.00-0.44 [facility] Eosinophils #/vol (Bld) 2 10*3/uL 1-4 [facility] Eosinophils Auto #/vol (Bld) 0.140 10*3/uL Invalid Interpretation Code 0.00-0.44 [facility] Erythrocyte distribution width Auto Ratio (RBC) 13.2 % Invalid Interpretation Code 11.8-14.4 [facility] Erythrocytes (RBC) 4.36 10*6/uL Invalid Interpretation Code 3.95-5.11 [facility] Erythrocytes (RBC) NOT REPORTED Invalid Interpretation Code [facility] [employer] Erythrocytes (RBC) 0.0 10*6/uL Invalid Interpretation Code 0.0 [facility] Hematocrit (HCT) 44.2 % Invalid Interpretation Code 36.3-47.1 [facility] Hematocrit Volume Fraction (Bld) 44.2 % 36.3-47.1 [facility] Hemoglobin mass conc (Bld) 13.5 g/dL Invalid Interpretation Code 11.9-15.1 [facility] Lymphocytes 2.24 10*3/uL Invalid Interpretation Code 1.10-3.70 [facility] Lymphocytes 31 10*3/uL Invalid Interpretation Code 24-43 [facility] Lymphocytes #/vol (Bld) 31 10*3/uL 24-[facility] Lymphocytes #/vol (Bld) 2.24 10*3/uL 1.10-3.70 [facility] Lymphocytes Auto #/vol (Bld) 2.240 10*3/uL Invalid Interpretation Code 1.10-3.70 [facility] MCH 31.0 pg Invalid Interpretation Code 25.2-33.5 [facility] MCH Entitic mass (RBC) 31.0 pg 25.2-33.5 [facility] MCHC mass conc (RBC) 30.5 g/dL Invalid Interpretation Code 28.4-34.8 [facility] MCV 101.4 fL Invalid Interpretation Code 82.6-102.9 [facility] MCV Entitic volume (RBC) 101.4 fL 82.6-102.9 [facility] Monocytes 0.64 10*3/uL Invalid Interpretation Code 0.10-1.20 [facility] Monocytes 9 10*3/uL Invalid Interpretation Code 3-12 [facility] Monocytes #/vol (Bld) 0.64 10*3/uL 0.10-1.20 [facility] Monocytes #/vol (Bld) 9 10*3/uL 3-12 [facility] Monocytes Auto #/vol (Bld) 0.640 10*3/uL Invalid Interpretation Code 0.10-1.20 [facility] Neutrophils Auto #/vol (Bld) 4.10 10*3/uL Invalid Interpretation Code 1.50-8.10 [facility] Platelet mean volume (PMV) 11.7 fL Invalid Interpretation Code 8.1-13.5 [facility] RBC #/vol (Bld) 4.36 10*6/uL 3.95-5.11 [facility] WBC #/vol (Bld) 7.2 10*3/uL 3.5-11.3 [facility] WBC (Leukocytes) 7.2 10*3/uL Invalid Interpretation Code 3.5-11.3 [facility] Metabolic Panelon 09-26-2017 Albumin mass conc 4.1 g/dL Invalid Interpretation Code 3.5-5.2 [facility] ALT enzyme act/vol 28 U/L Invalid Interpretation Code 5-33 [facility] Anion gap 3 molar conc 9 mmol/L Invalid Interpretation Code 9-17 [facility] AST enzyme act/vol 19 U/L Invalid Interpretation Code <32 [facility] Bilirubin mass conc 0.250 mg/dL Invalid Interpretation Code 0.3-1.2 [facility] Calcium mass conc 10.80 mg/dL Invalid Interpretation Code 8.6-10.4 [facility] Chloride molar conc 103 mmol/L Invalid Interpretation Code 98-107 [facility] CO2 molar conc 27 mmol/L Invalid Interpretation Code 20-31 [facility] Creatinine mass conc 0.83 mg/dL Invalid Interpretation Code 0.50-0.90 [facility] Glucose mass conc 95 mg/dL Invalid Interpretation Code 70-99 [facility] Potassium molar conc 4.8 mmol/L Invalid Interpretation Code 3.7-5.3 [facility] Protein mass conc 7.0 g/dL Invalid Interpretation Code 6.4-8.3 [facility] Sodium molar conc 139 mmol/L Invalid Interpretation Code 135-144 [facility] Urea nitrogen mass conc 22.0 mg/dL Invalid Interpretation Code 8-23 [facility] Albumin mass conc 4.1 g/dL Invalid Interpretation Code 3.5-5.2 [facility] ALT enzyme act/vol 28 U/L Invalid Interpretation Code 5-33 [facility] Anion gap 9 mmol/L Invalid Interpretation Code 9-17 [facility] Anion gap molar conc 9 mmol/L 9-17 [facility] AST enzyme act/vol 19 U/L Invalid Interpretation Code <32 [facility] Bilirubin mass conc 0.25 mg/dL Invalid Interpretation Code 0.3-1.2 [facility] Bilirubin mass conc 0.250 mg/dL Invalid Interpretation Code 0.3-1.2 [facility] BUN (urea nitrogen) 22 mg/dL Invalid Interpretation Code 8-23 [facility] Calcium mass conc 10.8 mg/dL Invalid Interpretation Code 8.6-10.4 [facility] Calcium mass conc 10.80 mg/dL Invalid Interpretation Code 8.6-10.4 [facility] Chloride molar conc 103 mmol/L Invalid Interpretation Code 98-107 [facility] CO2 27 mmol/L Invalid Interpretation Code 20-31 [facility] Creatinine mass conc 0.83 mg/dL Invalid Interpretation Code 0.50-0.90 [facility] [employer] eGFR (non-black) mL/min/{1.73_m2} Invalid Interpretation Code >60 [facility] [employer] Glucose mass conc 95 mg/dL Invalid Interpretation Code 70-99 [facility] [employer] Potassium molar conc 4.8 mmol/L Invalid Interpretation Code 3.7-5.3 [facility] [employer] Protein mass conc 7.0 g/dL Invalid Interpretation Code 6.4-8.3 [facility] [employer] Sodium molar conc 139 mmol/L Invalid Interpretation Code 135-144 [facility] [employer] Urea nitrogen mass conc 22.0 mg/dL Invalid Interpretation Code 8-23 [facility] [employer] Urea nitrogen mass conc 22 mg/dL 8-23 [facility] 09-[facility]-2017 Cholesterol.total/Judy sterol in HDL mass ratio 3.7 {ratio} Invalid Interpretation Code <5 [facility] Immature granulocytes #/vol (Bld) 0 10*3/uL Invalid Interpretation Code 0 [facility] [employer] Urea nitrogen/Creatinine mass ratio (Bld) 27 Invalid Interpretation Code 9-20 [facility] [employer] NOT REPORTED Invalid Interpretation Code [facility] 205 Invalid Interpretation Code <150 [facility] 101 Invalid Interpretation Code 0-130 [facility] 53 Invalid Interpretation Code >40 [facility] 57 Invalid Interpretation Code 36-65 [facility] 0.0 Invalid Interpretation Code 0.0 [facility] 0.96 Invalid Interpretation Code 0.93-1.70 [facility] 226 Invalid Interpretation Code 138-453 [facility] >60 Invalid Interpretation Code >60 [facility] <0.03 Invalid Interpretation Code 0.00-0.30 [facility] 1.4 Invalid Interpretation Code 1.0-2.5 [facility] 140 Invalid Interpretation Code 35-104 [facility] 1.06 Invalid Interpretation Code 0.30-5.00 [facility] Cholesterol.total/Judy sterol in HDL mass ratio 3.7 {ratio} Invalid Interpretation Code <5 [facility] [employer] Erythrocyte distribution width Ratio (RBC) 13.2 % 11.8-14.4 [facility] Granulocytes/100 WBC (Bld) % Invalid Interpretation Code 0.00-0.30 [facility] Immature granulocytes #/vol (Bld) 0 10*3/uL Invalid Interpretation Code 0 [facility] MCHC mass conc (RBC) 30.5 g/dL 28.4-34.8 [facility] Platelet mean volume Entitic volume (Bld) 11.7 fL 8.1-13.5 [facility] Urea nitrogen/Creatinine mass ratio (Bld) 27 Invalid Interpretation Code 9-20 [facility] NOT REPORTED Invalid Interpretation Code [facility] 4.10 Invalid Interpretation Code 1.50-8.10 [facility] 205 Invalid Interpretation Code <150 [facility] 53 Invalid Interpretation Code >40 [facility] 1.06 Invalid Interpretation Code 0.30-5.00 [facility] 57 Invalid Interpretation Code 36-65 [facility] 0.96 Invalid Interpretation Code 0.93-1.70 [facility] 27 Invalid Interpretation Code 9-20 [facility] 226 Invalid Interpretation Code 138-453 [facility] 0.07 Invalid Interpretation Code 0.00-0.20 [facility] 1.4 Invalid Interpretation Code 1.0-2.5 [facility] 140 Invalid Interpretation Code 35-104 [facility] 101 Invalid Interpretation Code 0-130 [facility] 7.0 Invalid Interpretation Code 6.4-8.3 [facility] 28 Invalid Interpretation Code 5-33 [facility] 19 Invalid Interpretation Code <32 [facility] 0.0 Invalid Interpretation Code 0.0 [facility] >60 Invalid Interpretation Code >60 [facility] <0.03 Invalid Interpretation Code 0.00-0.30 [facility] Otheron 09-17-2017 S. pyogenes Ag IA Ql (Unsp spec) Negative Invalid Interpretation Code [facility] S. pyogenes Ag IA Ql (Unsp spec) Negative Invalid Interpretation Code [facility] Otheron 05-14-2017 2 Invalid Interpretation Code [facility] 2 Invalid Interpretation Code [facility] Metabolic Panelon 04-18-2017 Hemoglobin A1c/Hemoglobin.total mass fraction (Bld) 5.0 % Invalid Interpretation Code < 7 [facility] Hemoglobin A1c/Hemoglobin.total mass fraction (Bld) 5.0 % Invalid Interpretation Code < 7 [facility] Otheron 01-01-2017 Negative Invalid Interpretation Code [facility] 0=No Invalid Interpretation Code [facility] 4 Invalid Interpretation Code [facility] Risk Level 2= 4-6 Invalid Interpretation Code [facility] 0= N/A Invalid Interpretation Code [facility] 0-N/A Invalid Interpretation Code [facility] 1=Controlled Invalid Interpretation Code [facility] 1=Yes Invalid Interpretation Code [facility] 0 Invalid Interpretation Code [facility] Negative Invalid Interpretation Code [facility] 0 Invalid Interpretation Code [facility] 0=No Invalid Interpretation Code [facility] 4 Invalid Interpretation Code [facility] Risk Level 2= 4-6 Invalid Interpretation Code [facility] 0= N/A Invalid Interpretation Code [facility] 0-N/A Invalid Interpretation Code [facility] [facility] 1=Controlled Invalid Interpretation [facility] 1=Yes Invalid Interpretation [facility] Otheron 12-06-2016 Negative Invalid Interpretation [facility] Negative Invalid Interpretation [facility] Otheron 11-06-2016 Urinalysis specialist review Interp Justice (Unsp spec) mod leuk, wnl Invalid Interpretation [facility] Urinalysis specialist review Interp Justice (Unsp spec) mod leuk, wnl Invalid Interpretation [facility] Otheron 08-21-2016 Not ready Invalid Interpretation [facility] No Invalid Interpretation [facility] Contemplation Invalid Interpretation [facility] Benefits of quitting Invalid Interpretation [facility] 10.0 Count Invalid Interpretation [facility] 7 Invalid Interpretation [facility] Charly Invalid Interpretation [facility] Current Invalid Interpretation [facility] Not ready Invalid Interpretation [facility] No Invalid Interpretation [facility] Contemplation Invalid Interpretation [facility] Benefits of quitting Invalid Interpretation [facility] 10.0 Count Invalid Interpretation [facility] 7 Invalid Interpret[facility] Charly Invalid Interpretation [facility] Current Invalid Interpretation [facility] Metabolic Panelon 06-12-2016 Protein mass conc Provide self-help materials Invalid Interpretation [facility] Protein Provide self-help materials Invalid Interpretation [facility] Otheron 06-12-2016 Yes Invalid Interpretation [facility] Contemplation Invalid Interpretation [facility] Strong advice to quit Invalid Interpretation [facility] Woman Invalid Interpretation [facility] 10.0 Count Invalid Interpretation [facility] 7 Invalid Interpretation [facility] charly segundo Invalid Interpretation [facility] Current Invalid Interpretation [facility] Provide self-help materials Invalid Interpretation [facility] Yes Invalid Interpretation [facility] Contemplation Invalid Interpretation [facility] Strong advice to quit Invalid Interpretation [facility] Woman Invalid Interpretation [facility] 10.0 Count Invalid Interpretation [facility] 7 Invalid Interpretation [facility] charly segundo Invalid Interpret[facility] Current Invalid Interpretation [facility] Otheron 04-10-2016 Pre-contemplation Invalid Interpretation [facility] Not Ready Invalid Interpretation [facility] Benefits of quitting Invalid Interpretation [facility] No Invalid Interpretation [facility] Woman Invalid Interpretation [facility] 10.0 Count Invalid Interpretation [facility] 7 Invalid Interpretation [facility] Current Invalid Interpretation [facility] Charly Invalid Interpretation [facility] Not Ready Invalid Interpretation [facility] Pre-contemplation Invalid Interpretation [facility] No Invalid Interpretation [facility] Benefits of quitting Invalid Interpretation [facility] Woman Invalid Interpretation [facility] 10.0 Count Invalid Interpretation [facility] 7 Invalid Interpretation [facility] Current Invalid Interpretation [facility] Charly Invalid Interpretation [facility] Otheron 03-20-2016 10.0 Count Invalid Interpretation [facility] Woman Invalid Interpretation [facility] Not Ready Invalid Interpretation [facility] No Invalid Interpretation [facility] Contemplation Invalid Interpretation [facility] Current Invalid Interpret[facility] Charly Felton Invalid Interpretation [facility] 7 Invalid Interpretation [facility] Benefits of quitting Invalid Interpretation [facility] 10.0 Count Invalid Interpretation [facility] Woman Invalid Interpretation [facility] Not Ready Invalid Interpret[facility] No Invalid Interpretation [facility] Contemplation Invalid Interpretation [facility] Current Invalid Interpretation [facility] Charly Hennessyp Invalid Interpretation [facility] 7 Invalid Interpretation [facility] Benefits of quitting Invalid Interpretation [facility] Otheron 12-08-2015 Urinalysis specialist review Interp Justice (Unsp spec) WNL Lg Justina Invalid Interpretation [facility] Urinalysis specialist review Interp Justice (Unsp spec) WNL Lg Justina Invalid Interpretation [facility] Otheron 09-09-2015 Negative Invalid Interpretation Code [facility] Negative Invalid Interpretation Code NEGATIVE [facility] Otheron 09-08-2015 290 Invalid Interpretation [facility] 280 Invalid Interpretation [facility] Negative Invalid Interpretation [facility] 290 Invalid Interpretation [facility] 280 Invalid Interpretation [facility] Negative Invalid Interpretation [facility] Vital Signs Date Time Vital Sign Value Performing Clinician Facility 12-24-2023 15:30-0400 Body temperature 97.7 [degF] RODNEY Clrak Work Phone: [facility] 12-24-2023 15:30-0400 Diastolic blood pressure 81 mm[Hg] CHILD CARE SUPERVISOR Karla Amber Work Phone: [facility] 12-24-2023 15:30-0400 Heart rate 68 /min CHILD CARE SUPERVISOR Karla Amber Work Phone: [facility] 12-24-2023 15:30-0400 Respiratory rate 16 /min CHILD CARE SUPERVISOR Karla Amber Work Phone: [facility] 12-24-2023 15:30-0400 SaO2% (BldA) [Mass fraction] 97 % CHILD CARE SUPERVISOR Karla Amber Work Phone: [facility] 12-24-2023 15:30-0400 Systolic blood pressure 121 mm[Hg] CHILD CARE SUPERVISOR Karla Amber Work Phone: [facility] 12-23-2023 14:14-0400 Body height 160.02 cm CHILD CARE SUPERVISOR Karla Amber Work Phone: [facility] 12-23-2023 08:54-0400 Body weight 67.05 kg CHILD CARE SUPERVISOR Karla Amber Work Phone: [facility] 12-16-2023 13:02-0400 Body height 160.02 cm CHILD CARE SUPERVISOR Karla Amber Work Phone: [facility] 12-16-2023 13:02-0400 Body temperature 98 [degF] CHILD CARE SUPERVISOR Karla Amber Work Phone: [facility] 12-16-2023 13:02-0400 Body weight 63.5 kg CHILD CARE SUPERVISOR Karla Amber Work Phone: [facility] 12-16-2023 13:02-0400 Diastolic blood pressure 75 mm[Hg] CHILD CARE SUPERVISOR Karla Amber Work Phone: [facility] 12-16-2023 13:02-0400 Heart rate 74 /min CHILD CARE SUPERVISOR Karla Amber Work Phone: [facility] 12-16-2023 13:02-0400 Respiratory rate 16 /min CHILD CARE SUPERVISOR Karla Amber Work Phone: [facility] 12-16-2023 13:02-0400 SaO2% (BldA) [Mass fraction] 100 % CHILD CARE SUPERVISOR Karla Clark Work Phone: [facility] 12-16-2023 13:02-0400 Systolic blood pressure 127 mm[Hg] CHILD CARE SUPERVISOR Karla Clark Work Phone: [facility] 10-04-2023 14:17-0400 Diastolic blood pressure 88 mm[Hg] Karla Clark CNP Work Phone: [facility] Comment on above: manual cuff 10-04-2023 14:17-0400 Systolic blood pressure 134 mm[Hg] Karla Clark CNP Work Phone: [facility] Comment on above: manual cuff 10-04-2023 13:33-0400 Diastolic blood pressure 93 mm[Hg] aKrla Clark CNP Work Phone: [facility] Work Phone: 10-04-2023 13:33-0400 Systolic blood pressure 148 mm[Hg] Karla Clark CNP Work Phone: [facility] Work Phone: 10-04-2023 13:22-0400 Body height 162.56 cm Karla Clark CNP Work Phone: [facility] Work Phone: 10-04-2023 13:22-0400 Body mass index (BMI) [Ratio] 25.2 kg/m2 Karla Clark CNP Work Phone: [facility] Work Phone: 10-04-2023 13:22-0400 Body surface area Derived from formula 1.7 m2 Karla Clark CNP Work Phone: [facility] Work Phone: 10-04-2023 13:22-0400 Body weight 66.68 kg Karla Clark CNP Work Phone: [facility] Work Phone: 10-04-2023 13:22-0400 Diastolic blood pressure 88 mm[Hg] Karla Clark CNP Work Phone: [facility] Work Phone: 10-04-2023 13:22-0400 Heart rate 77 /min Karla Clark CNP Work Phone: [facility] Work Phone: 10-04-2023 13:22-0400 SaO2% (BldA) [Mass fraction] 98 % Karla Clark CNP Work Phone: [facility] Work Phone: 10-04-2023 13:22-0400 Systolic blood pressure 142 mm[Hg] Karla Clark CNP Work Phone: [facility] Work Phone: 08-20-2023 16:49-0400 Diastolic blood pressure 73 mm[Hg] [facility] 08-20-2023 16:49-0400 Heart rate 69 /min [facility] 08-20-2023 16:49-0400 Respiratory rate 69 /min [facility] 08-20-2023 16:49-0400 SaO2% (BldA) [Mass fraction] 98 % [facility] 08-20-2023 16:49-0400 Systolic blood pressure 135 mm[Hg] [facility] 08-20-2023 15:57-0400 Body temperature 97.7 [degF] [facility] 08-20-2023 15:22-0400 Inhaled oxygen flow rate 8 L/min [facility] 08-20-2023 14:26-0400 Body height 161.29 cm [facility] 08-20-2023 14:26-0400 Body mass index (BMI) [Ratio] 25.4 kg/m2 [facility] 08-20-2023 14:26-0400 Body weight 66.22 kg [facility] 08-20-2023 10:56-0400 Body weight 67.1 kg [facility] 08-20-2023 07:30-0400 Body temperature 97.4 [degF] [facility] 08-20-2023 07:30-0400 Diastolic blood pressure 87 mm[Hg] [facility] 08-20-2023 07:30-0400 Heart rate 67 /min [facility] 08-20-2023 07:30-0400 Respiratory rate 18 /min [facility] 08-20-2023 07:30-0400 SaO2% (BldA) [Mass fraction] 99 % [facility] 08-20-2023 07:30-0400 Systolic blood pressure 143 mm[Hg] [facility] 08-19-2023 09:00-0400 Body weight 67.1 kg [facility] 08-16-2023 14:21-0400 Body height 161.29 cm [facility] 08-15-2023 19:27-0400 Body temperature 97.2 [degF] [facility] 08-15-2023 19:27-0400 Diastolic blood pressure 63 mm[Hg] [facility] 08-15-2023 19:27-0400 Heart rate 71 /min [facility] 08-15-2023 19:27-0400 Respiratory rate 20 /min [facility] 08-15-2023 19:27-0400 SaO2% (BldA) [Mass fraction] 99 % [facility] 08-15-2023 19:27-0400 Systolic blood pressure 133 mm[Hg] [facility] 08-15-2023 15:10-0400 Body height 160.02 cm [facility] 08-15-2023 15:10-0400 Body weight 66.67 kg [facility] 05-22-2023 10:50-0500 Body height 162.56 cm Karla Clark CNP Work Phone: [facility] 05-22-2023 10:50-0500 Body mass index (BMI) [Ratio] 24.8 kg/m2 Karla Clark COTTON DISPATCHER Work Phone: [facility] 05-22-2023 10:50-0500 Body surface area Derived from formula 1.7 m2 Karla Clark COTTON DISPATCHER Work Phone: [facility] 05-22-2023 10:50-0500 Body weight 65.59 kg Karla Clark COTTON DISPATCHER Work Phone: [facility] 05-22-2023 10:50-0500 Diastolic blood pressure 89 mm[Hg] Karla Clark COTTON DISPATCHER Work Phone: [facility] 05-22-2023 10:50-0500 Heart rate 75 /min Karla Clark COTTON DISPATCHER Work Phone: [facility] 05-22-2023 10:50-0500 SaO2% (BldA) [Mass fraction] 95 % Karla Clark COTTON DISPATCHER Work Phone: [facility] 05-22-2023 10:50-0500 Systolic blood pressure 138 mm[Hg] Karla Clark COTTON DISPATCHER Work Phone: [facility] 03-28-2023 07:30-0400 Body temperature 97.9 [degF] CHILD CARE SUPERVISOR Karla Clark Work Phone: [facility] 03-28-2023 07:30-0400 Diastolic blood pressure 71 mm[Hg] CHILD CARE SUPERVISOR Karlanaveed Floresen Work Phone: [facility] 03-28-2023 07:30-0400 Heart rate 95 /min CHILD CARE SUPERVISOR Karla Amber Work Phone: [facility] 03-28-2023 07:30-0400 Respiratory rate 18 /min CHILD CARE SUPERVISOR Karlanaveed Floresen Work Phone: [facility] 03-28-2023 07:30-0400 SaO2% (BldA) [Mass fraction] 95 % CHILD CARE SUPERVISOR Karla Amber Work Phone: [facility] 03-28-2023 07:30-0400 Systolic blood pressure 121 mm[Hg] CHILD CARE SUPERVISOR Karla Clark Work Phone: [facility] 03-27-2023 11:00-0400 Body height 160.02 cm CHILD CARE SUPERVISOR Karla Clark Work Phone: [facility] 03-26-2023 00:59-0400 Body weight 63.5 kg CHILD CARE SUPERVISOR Karla Clark Work Phone: [facility] 03-15-2023 07:30-0400 Body temperature 97.9 [degF] CHILD CARE SUPERVISOR Karla Clark Work Phone: [facility] 03-15-2023 07:30-0400 Diastolic blood pressure 72 mm[Hg] CHILD CARE SUPERVISOR Karlanaveed Floresen Work Phone: [facility] 03-15-2023 07:30-0400 Heart rate 68 /min CHILD CARE SUPERVISOR Karlanaveed Floresen Work Phone: [facility] 03-15-2023 07:30-0400 Respiratory rate 16 /min CHILD CARE SUPERVISOR Karla Clark Work Phone: [facility] 03-15-2023 07:30-0400 SaO2% (BldA) [Mass fraction] 100 % CHILD CARE SUPERVISOR Kalra Clark Work Phone: [facility] 03-15-2023 07:30-0400 Systolic blood pressure 136 mm[Hg] CHILD CARE SUPERVISOR Karla Amber Work Phone: [facility] 03-12-2023 14:52-0400 Body height 160.02 cm CHILD CARE SUPERVISOR Karlanaveed Clark Work Phone: [facility] 03-12-2023 00:34-0400 Body weight 63.5 kg CHILD CARE SUPERVISOR Karlanaveed Clark Work Phone: [facility] 02-28-2023 09:35-0400 Body height 162.56 cm Karla Clark COTTON DISPATCHER Work Phone: [facility] 02-28-2023 09:35-0400 Body mass index (BMI) [Ratio] 24 kg/m2 Karla Clark CNP Work Phone: Health [facility] 02-28-2023 09:35-0400 Body surface area Derived from formula 1.7 m2 Karla Clark CNP Work Phone: [facility] 02-28-2023 09:35-0400 Body weight 63.41 kg Karla Clark CNP Work Phone: Health [facility] 02-28-2023 09:35-0400 Diastolic blood pressure 76 mm[Hg] Karla Clark CNP Work Phone: [facility] 02-28-2023 09:35-0400 Heart rate 83 /min Karla Clark CNP Work Phone: [facility] 02-28-2023 09:35-0400 SaO2% (BldA) [Mass fraction] 94 % Karla Clark CNP Work Phone: [facility] 02-28-2023 09:35-0400 Systolic blood pressure 111 mm[Hg] Karla Clark CNP Work Phone: [facility] 12-12-2022 13:45-0400 Body height Emory Adame Other [employer] [facility] [employer] Other 12-12-2022 13:45-0400 Body mass index (BMI) [Ratio] 25.6 kg/m2 Emory Adame Other [email or web address] Other 12-12-2022 13:45-0400 Body weight 63.5 kg Emory Adame Other [employer] [facility] [employer] Other 11-19-2022 09:15-0400 Body height 162.56 cm Karla Clark CNP Work Phone: [facility] 11-19-2022 09:15-0400 Body mass index (BMI) [Ratio] 23.6 kg/m2 Karla Clark CNP Work Phone: [facility] 11-19-2022 09:15-0400 Body surface area Derived from formula 1.7 m2 Karla Clark CNP Work Phone: [facility] 11-19-2022 09:15-0400 Body temperature 97.6 [degF] Karla Clark CNP Work Phone: [facility] 11-19-2022 09:15-0400 Body weight 62.32 kg Karla Clark CNP Work Phone: [facility] 11-19-2022 09:15-0400 Diastolic blood pressure 60 mm[Hg] Karla Clark CNP Work Phone: [facility] 11-19-2022 09:15-0400 Heart rate 94 /min Karla Clark CNP Work Phone: [facility] 11-19-2022 09:15-0400 SaO2% (BldA) [Mass fraction] 97 % Karla Clark CNP Work Phone: [facility] 11-19-2022 09:15-0400 Systolic blood pressure 133 mm[Hg] Karla Clark CNP Work Phone: [facility] 09-18-2022 13:57-0400 Body height 162.56 cm Karla Clark CNP Work Phone: [facility] Work Phone: 09-18-2022 13:57-0400 Body mass index (BMI) [Ratio] 24.9 kg/m2 Karla Clark CNP Work Phone: [facility] Work Phone: 09-18-2022 13:57-0400 Body surface area Derived from formula 1.7 m2 Karla Clark CNP Work Phone: [facility] Work Phone: 09-18-2022 13:57-0400 Body temperature 97.6 [degF] Karla Clark CNP Work Phone: [facility] Work Phone: 09-18-2022 13:57-0400 Body weight 65.68 kg Karla Clark COTTON DISPATCHER Work Phone: [facility] Work Phone: 09-18-2022 13:57-0400 Diastolic blood pressure 74 mm[Hg] Karla Clark COTTON DISPATCHER Work Phone: [facility] Work Phone: 09-18-2022 13:57-0400 Heart rate 80 /min Karla Clark COTTON DISPATCHER Work Phone: [facility] Work Phone: 09-18-2022 13:57-0400 SaO2% (BldA) [Mass fraction] 98 % Karla Clark CNP Work Phone: [facility] Work Phone: 09-18-2022 13:57-0400 Systolic blood pressure 142 mm[Hg] Karla Clark COTTON DISPATCHER Work Phone: [facility] Work Phone: 09-14-2022 15:10-0400 Body temperature 98.6 [degF] PHYSICIAN [facility] 09-14-2022 15:10-0400 Diastolic blood pressure 75 mm[Hg] PHYSICIAN [facility] 09-14-2022 15:10-0400 Heart rate 81 /min PHYSICIAN [facility] 09-14-2022 15:10-0400 Respiratory rate 20 /min PHYSICIAN [facility] 09-14-2022 15:10-0400 SaO2% (BldA) [Mass fraction] 95 % PHYSICIAN [facility] 09-14-2022 15:10-0400 Systolic blood pressure 144 mm[Hg] PHYSICIAN [facility] 09-14-2022 06:43-0400 Body weight 72.6 kg PHYSICIAN [facility] 09-14-2022 00:00-0400 Inhaled oxygen flow rate 1 L/min PHYSICIAN [facility] 09-13-2022 08:33-0400 Body height 157.48 cm PHYSICIAN NO [facility] 09-13-2022 08:33-0400 Body mass index (BMI) [Ratio] 26.2 kg/m2 PHYSICIAN NO [facility] 09-10-2022 09:45-0400 Body height Emory Adame Other [facility] [employer] Other 09-10-2022 09:45-0400 Body mass index (BMI) [Ratio] 26.15 kg/m2 Emory Adame Other [facility] [employer] Other 09-10-2022 09:45-0400 Body weight 64.86 kg Emory Adame Other [facility] [employer] Other 08-27-2022 08:26-0400 Body height 162.56 cm Karla Clark CNP Work Phone: [facility] Work Phone: 08-27-2022 08:26-0400 Body mass index (BMI) [Ratio] 24.6 kg/m2 Karla Clark CNP Work Phone: [facility] Work Phone: 08-27-2022 08:26-0400 Body surface area Derived from formula 1.7 m2 Karla Clark CNP Work Phone: [facility] Work Phone: 08-27-2022 08:26-0400 Body temperature 97 [degF] Karla Clark CNP Work Phone: [facility] Work Phone: 08-27-2022 08:26-0400 Body weight 65.14 kg Karla Clark CNP Work Phone: [facility] Work Phone: 08-27-2022 08:26-0400 Diastolic blood pressure 73 mm[Hg] Karla Clark CNP Work Phone: [facility] Work Phone: 08-27-2022 08:26-0400 Heart rate 66 /min Karla Clark CNP Work Phone: [facility] Work Phone: 08-27-2022 08:26-0400 SaO2% (BldA) [Mass fraction] 96 % Karla Clark CNP Work Phone: [facility] Work Phone: 08-27-2022 08:26-0400 Systolic blood pressure 115 mm[Hg] Karla Clark CNP Work Phone: [facility] Work Phone: 06-18-2022 11:23-0500 Body height 162.56 cm Karla Clark CNP Work Phone: [facility] Work Phone: 06-18-2022 11:23-0500 Body mass index (BMI) [Ratio] 24.9 kg/m2 Karla Clark CNP Work Phone: [facility] Work Phone: 06-18-2022 11:23-0500 Body surface area Derived from formula 1.7 m2 Karla Clark CNP Work Phone: [facility] Work Phone: 06-18-2022 11:23-0500 Body temperature 97.6 [degF] Karla Clark CNP Work Phone: [facility] Work Phone: 06-18-2022 11:23-0500 Body weight 65.86 kg Karla Clark CNP Work Phone: [facility] Work Phone: 06-18-2022 11:23-0500 Diastolic blood pressure 78 mm[Hg] Karla Clark CNP Work Phone: [facility] Work Phone: 06-18-2022 11:23-0500 Heart rate 62 /min Karla Clark CNP Work Phone: [facility] Work Phone: 06-18-2022 11:23-0500 SaO2% (BldA) [Mass fraction] 98 % Karla Clark CNP Work Phone: [facility] Work Phone: 06-18-2022 11:23-0500 Systolic blood pressure 125 mm[Hg] Karla Clark CNP Work Phone: [facility] Work Phone: 03-20-2022 13:56-0400 Body height 162.56 cm Karla Clark CNP Work Phone: [facility] Work Phone: 03-20-2022 13:56-0400 Body mass index (BMI) [Ratio] 24.4 kg/m2 Karla Clark CNP Work Phone: [facility] Work Phone: 03-20-2022 13:56-0400 Body surface area Derived from formula 1.7 m2 Karla Clark CNP Work Phone: [facility] Work Phone: 03-20-2022 13:56-0400 Body temperature 99.5 [degF] Karla Clark CNP Work Phone: [facility] Work Phone: 03-20-2022 13:56-0400 Body weight 64.41 kg Karla Clark CNP Work Phone: [facility] Work Phone: 03-20-2022 13:56-0400 Diastolic blood pressure 82 mm[Hg] Karla Clark CNP Work Phone: [facility] Work Phone: 03-20-2022 13:56-0400 Heart rate 69 /min Karla Clark CNP Work Phone: [facility] Work Phone: 03-20-2022 13:56-0400 Heart Rate Rhythm 1 1 Karla Clark CNP Work Phone: [facility] Work Phone: 03-20-2022 13:56-0400 SaO2% (BldA) [Mass fraction] 98 % Karla Clark CNP Work Phone: [facility] Work Phone: 03-20-2022 13:56-0400 Systolic blood pressure 126 mm[Hg] Karla Clark CNP Work Phone: [facility] Work Phone: 12-20-2021 14:07-0400 Body height 162.56 cm Karla Clark CNP Work Phone: [facility] Work Phone: 12-20-2021 14:07-0400 Body mass index (BMI) [Ratio] 24.5 kg/m2 Karla Clark CNP Work Phone: [facility] Work Phone: 12-20-2021 14:07-0400 Body surface area Derived from formula 1.7 m2 Karla Clark CNP Work Phone: [facility] Work Phone: 12-20-2021 14:07-0400 Body temperature 97.6 [degF] Karla Clark CNP Work Phone: [facility] Work Phone: 12-20-2021 14:07-0400 Body weight 64.86 kg Karla Clark CNP Work Phone: [facility] Work Phone: 12-20-2021 14:07-0400 Diastolic blood pressure 80 mm[Hg] Karla Clark CNP Work Phone: [facility] Work Phone: 12-20-2021 14:07-0400 Heart rate 92 /min Karla Clark CNP Work Phone: [facility] Work Phone: 12-20-2021 14:07-0400 SaO2% (BldA) [Mass fraction] 98 % Karla Clark CNP Work Phone: [facility] Work Phone: 12-20-2021 14:07-0400 Systolic blood pressure 130 mm[Hg] Karla Clark CNP Work Phone: [facility] Work Phone: 11-03-2021 10:00-0400 Body height 162.56 cm Karla Clark CNP Work Phone: [facility] Work Phone: 11-03-2021 10:00-0400 Body mass index (BMI) [Ratio] 24.3 kg/m2 Karla Clark CNP Work Phone: [facility] Work Phone: 11-03-2021 10:00-0400 Body surface area Derived from formula 1.69 m2 Karla Clark CNP Work Phone: [facility] Work Phone: 11-03-2021 10:00-0400 Body surface area Derived from formula 1.7 m2 Karla Clark CNP Work Phone: [facility] Work Phone: 11-03-2021 10:00-0400 Body temperature 97.6 [degF] Karla Clark CNP Work Phone: [facility] Work Phone: 11-03-2021 10:00-0400 Body weight 64.14 kg Karla Clark CNP Work Phone: [facility] Work Phone: 11-03-2021 10:00-0400 Diastolic blood pressure 80 mm[Hg] Karla Clark CNP Work Phone: [facility] Work Phone: 11-03-2021 10:00-0400 Heart rate 70 /min Karla Clark CNP Work Phone: [facility] Work Phone: 11-03-2021 10:00-0400 SaO2% (BldA) [Mass fraction] 98 % Karla Clark CNP Work Phone: [facility] Work Phone: 11-03-2021 10:00-0400 Systolic blood pressure 126 mm[Hg] Karla Clark CNP Work Phone: [facility] Work Phone: 07-28-2021 13:20-0500 Body height 162.56 cm Karla Clark CNP Work Phone: [facility] Work Phone: 07-28-2021 13:20-0500 Body mass index (BMI) [Ratio] 24.4 kg/m2 Karla Clark CNP Work Phone: [facility] Work Phone: 07-28-2021 13:20-0500 Body surface area Derived from formula 1.69 m2 Karla Clark CNP Work Phone: [facility] Work Phone: 07-28-2021 13:20-0500 Body surface area Derived from formula 1.7 m2 Karla Clark CNP Work Phone: [facility] Work Phone: 07-28-2021 13:20-0500 Body temperature 98.6 [degF] Karla Clark CNP Work Phone: [facility] Work Phone: 07-28-2021 13:20-0500 Body weight 64.59 kg Karla Clark CNP Work Phone: [facility] Work Phone: 07-28-2021 13:20-0500 Diastolic blood pressure 82 mm[Hg] Karla Clark CNP Work Phone: [facility] Work Phone: 07-28-2021 13:20-0500 Heart rate 80 /min Karla Clark CNP Work Phone: [facility] Work Phone: 07-28-2021 13:20-0500 Respiratory rate 18 /min Karla Clark CNP Work Phone: [facility] Work Phone: 07-28-2021 13:20-0500 SaO2% (BldA) [Mass fraction] 98 % Karla Clark CNP Work Phone: [facility] Work Phone: 07-28-2021 13:20-0500 Systolic blood pressure 134 mm[Hg] Karla Clark CNP Work Phone: [facility] Work Phone: 05-08-2021 10:04-0500 Body height 162.56 cm Karla Clark CNP Work Phone: [facility] Work Phone: 05-08-2021 10:04-0500 Body mass index (BMI) [Ratio] 24.2 kg/m2 Karla Clark CNP Work Phone: [facility] Work Phone: 05-08-2021 10:04-0500 Body surface area Derived from formula 1.69 m2 Karla Clark CNP Work Phone: [facility] Work Phone: 05-08-2021 10:04-0500 Body surface area Derived from formula 1.7 m2 Karla Clark CNP Work Phone: [facility] Work Phone: 05-08-2021 10:04-0500 Body temperature 99.1 [degF] Karla Clark CNP Work Phone: [facility] Work Phone: 05-08-2021 10:04-0500 Body weight 64.05 kg Karla Clark CNP Work Phone: [facility] Work Phone: 05-08-2021 10:04-0500 Diastolic blood pressure 78 mm[Hg] Karla Clark CNP Work Phone: [facility] Work Phone: 05-08-2021 10:04-0500 Heart rate 69 /min Karla Clark CNP Work Phone: [facility] Work Phone: 05-08-2021 10:04-0500 SaO2% (BldA) [Mass fraction] 99 % Karla Clark CNP Work Phone: [facility] Work Phone: 05-08-2021 10:04-0500 Systolic blood pressure 132 mm[Hg] Karlanaveed Clark [employer] Work Phone: [facility] Work Phone: 06-17-2020 09:49-0500 BMI (Body Mass Index) 24.9 kg/m2 [facility] Work Phone: 06-17-2020 09:49-0500 Body Temperature 97.3 [degF] [facility] Work Phone: 06-17-2020 09:49-0500 Body weight 65.86 kg [facility] Work Phone: 06-17-2020 09:49-0500 BP Diastolic 70 mm[Hg] [facility] Work Phone: 06-17-2020 09:49-0500 BP Systolic 100 mm[Hg] [facility] Work Phone: 06-17-2020 09:49-0500 BSA (Body Surface Area) 1.71 m2 [facility] Work Phone: 06-17-2020 09:49-0500 Height 162.56 cm [facility] Work Phone: 06-17-2020 09:49-0500 Pulse (Heart Rate) 79 /min [facility] Work Phone: 06-17-2020 09:49-0500 Pulse Oximetry 97 % [facility] Work Phone: 06-17-2020 09:49-0500 Respiratory Rate 18 /min [facility] Work Phone: 06-17-2020 09:49-0500 SaO2% (BldA) [Mass fraction] 97 % [facility] Work Phone: [facility] Work Phone: 06-08-2020 10:39-0500 BP Diastolic 72 mm[Hg] [facility] , [place] 06-08-2020 10:39-0500 BP Systolic 137 mm[Hg] [facility] , [place] 06-08-2020 10:39-0500 Pulse (Heart Rate) 84 /min [facility], [place] 06-08-2020 10:39-0500 Pulse Oximetry 98 % [facility] , [place] 06-08-2020 10:39-0500 Respiratory Rate 12 /min [facility], [place] 06-06-2020 13:08-0500 BMI (Body Mass Index) 25 kg/m2 [facility] Work Phone: 06-06-2020 13:08-0500 Body Temperature 96.2 [degF] [facility] Work Phone: 06-06-2020 13:08-0500 Body weight 65.95 kg [facility] Work Phone: 06-06-2020 13:08-0500 BP Diastolic 86 mm[Hg] [facility] Work Phone: 06-06-2020 13:08-0500 BP Systolic 128 mm[Hg] [facility] Work Phone: 06-06-2020 13:08-0500 BSA (Body Surface Area) 1.71 m2 [facility] Work Phone: 06-06-2020 13:08-0500 Height 162.56 cm [facility] Work Phone: 06-06-2020 13:08-0500 Respiratory Rate 18 /min [facility] Work Phone: 05-06-2020 14:04-0500 BMI (Body Mass Index) 25.2 kg/m2 [facility] Work Phone: 05-06-2020 14:04-0500 Body weight 66.68 kg [facility] Work Phone: 05-06-2020 14:04-0500 BP Diastolic 70 mm[Hg] [facility] Work Phone: 05-06-2020 14:04-0500 BP Systolic 116 mm[Hg] [facility] Work Phone: 05-06-2020 14:04-0500 BSA (Body Surface Area) 1.72 m2 [facility] Work Phone: 05-06-2020 14:04-0500 Height 162.56 cm [facility] Work Phone: 05-06-2020 14:04-0500 Pulse (Heart Rate) 72 /min [facility] Work Phone: 05-06-2020 14:04-0500 Pulse Oximetry 96 % [facility] Work Phone: 03-31-2020 14:22-0400 BMI (Body Mass Index) 25.3 kg/m2 [facility] Work Phone: 03-31-2020 14:22-0400 Body Temperature 97.7 [degF] [facility] Work Phone: 03-31-2020 14:22-0400 Body weight 66.95 kg [facility] Work Phone: 03-31-2020 14:22-0400 BP Diastolic 90 mm[Hg] [facility] Work Phone: 03-31-2020 14:22-0400 BP Systolic 142 mm[Hg] [facility] Work Phone: 03-31-2020 14:22-0400 BSA (Body Surface Area) 1.72 m2 [facility] Work Phone: 03-31-2020 14:22-0400 Height 162.56 cm [facility] Work Phone: 03-31-2020 14:22-0400 Pulse (Heart Rate) 97 /min [facility] Work Phone: 03-31-2020 14:22-0400 Pulse Oximetry 97 % [facility] Work Phone: 03-31-2020 14:22-0400 Respiratory Rate 18 /min [facility] Work Phone: 03-14-2020 14:01-0400 BMI (Body Mass Index) 25.2 kg/m2 [facility] Work Phone: 03-14-2020 14:01-0400 Body Temperature 96.3 [degF] [facility] Work Phone: 03-14-2020 14:01-0400 Body weight 66.59 kg [facility] Work Phone: 03-14-2020 14:01-0400 BP Diastolic 86 mm[Hg] [facility] Work Phone: 03-14-2020 14:01-0400 BP Systolic 130 mm[Hg] [facility] Work Phone: 03-14-2020 14:01-0400 BSA (Body Surface Area) 1.72 m2 [facility] Work Phone: 03-14-2020 14:01-0400 Height 162.56 cm [facility] Work Phone: 03-14-2020 14:01-0400 Pulse (Heart Rate) 83 /min [facility] Work Phone: 03-14-2020 14:01-0400 Respiratory Rate 18 /min [facility] Work Phone: 02-26-2020 11:04-0400 BMI (Body Mass Index) 25.8 kg/m2 [facility] Work Phone: 02-26-2020 11:04-0400 Body Temperature 98.1 [degF] [facility] Work Phone: 02-26-2020 11:04-0400 Body weight 65.95 kg [facility] Work Phone: 02-26-2020 11:04-0400 BP Diastolic 90 mm[Hg] [facility] Work Phone: 02-26-2020 11:04-0400 BP Systolic 144 mm[Hg] [facility] Work Phone: 02-26-2020 11:04-0400 BSA (Body Surface Area) 1.69 m2 [facility] Work Phone: 02-26-2020 11:04-0400 Height 160.02 cm [facility] Work Phone: 02-26-2020 11:04-0400 Pulse (Heart Rate) 62 /min [facility] Work Phone: 02-26-2020 11:04-0400 Pulse Oximetry 95 % [facility] Work Phone: 02-26-2020 11:04-0400 Respiratory Rate 18 /min [facility] Work Phone: 11-19-2019 09:03-0400 BMI (Body Mass Index) 27.5 kg/m2 [facility] Work Phone: Comment on above: self 11-19-2019 09:03-0400 Body weight 70.31 kg [facility] Work Phone: Comment on above: self 11-19-2019 09:03-0400 BSA (Body Surface Area) 1.74 m2 [facility] Work Phone: Comment on above: self 11-19-2019 09:03-0400 Height 160.02 cm [facility] Work Phone: Comment on above: self 07-23-2019 14:03-0500 BMI (Body Mass Index) 27 kg/m2 [facility] Work Phone: 07-23-2019 14:03-0500 Body Temperature 99.9 [degF] [facility] Work Phone: 07-23-2019 14:03-0500 Body weight 69.04 kg [facility] Work Phone: 07-23-2019 14:03-0500 BP Diastolic 82 mm[Hg] [facility] Work Phone: 07-23-2019 14:03-0500 BP Systolic 110 mm[Hg] [facility] Work Phone: 07-23-2019 14:03-0500 BSA (Body Surface Area) 1.72 m2 [facility] Work Phone: 07-23-2019 14:03-0500 Height 160.02 cm [facility] Work Phone: 07-23-2019 14:03-0500 Pulse (Heart Rate) 80 /min [facility] Work Phone: 07-23-2019 14:03-0500 Pulse Oximetry 96 % [facility] Work Phone: 07-23-2019 14:03-0500 Respiratory Rate 18 /min [facility] Work Phone: 06-05-2019 13:43-0500 BMI (Body Mass Index) 27.2 kg/m2 [facility] Work Phone: 06-05-2019 13:43-0500 Body weight 69.76 kg [facility] Work Phone: 06-05-2019 13:43-0500 BP Diastolic 80 mm[Hg] [facility] Work Phone: 06-05-2019 13:43-0500 BP Systolic 118 mm[Hg] [facility] Work Phone: 06-05-2019 13:43-0500 BSA (Body Surface Area) 1.73 m2 [facility] Work Phone: 06-05-2019 13:43-0500 Height 160.02 cm [facility] Work Phone: 06-05-2019 13:43-0500 Pulse (Heart Rate) 73 /min [facility] Work Phone: 06-05-2019 13:43-0500 Pulse Oximetry 96 % [facility] Work Phone: 04-23-2019 13:59-0500 BMI (Body Mass Index) 27.1 kg/m2 [facility] Work Phone: 04-23-2019 13:59-0500 Body weight 69.4 kg [facility] Work Phone: 04-23-2019 13:59-0500 BP Diastolic 76 mm[Hg] [facility] Work Phone: 04-23-2019 13:59-0500 BP Systolic 124 mm[Hg] [facility] Work Phone: 04-23-2019 13:59-0500 BSA (Body Surface Area) 1.73 m2 [facility] Work Phone: 04-23-2019 13:59-0500 Height 160.02 cm [facility] Work Phone: 04-23-2019 13:59-0500 Pulse (Heart Rate) 58 /min [facility] Work Phone: 04-23-2019 13:59-0500 Pulse Oximetry 97 % [facility] Work Phone: 04-15-2019 10:33-0500 BMI (Body Mass Index) 28 kg/m2 [facility] Work Phone: 04-15-2019 10:33-0500 Body Temperature 99.3 [degF] [facility] Work Phone: 04-15-2019 10:33-0500 Body weight 71.76 kg [facility] Work Phone: 04-15-2019 10:33-0500 BP Diastolic 84 mm[Hg] [facility] Work Phone: 04-15-2019 10:33-0500 BP Systolic 120 mm[Hg] [facility] Work Phone: 04-15-2019 10:33-0500 BSA (Body Surface Area) 1.75 m2 [facility] Work Phone: 04-15-2019 10:33-0500 Height 160.02 cm [facility] Work Phone: 04-15-2019 10:33-0500 Pulse (Heart Rate) 83 /min [facility] Work Phone: 04-15-2019 10:33-0500 Pulse Oximetry 97 % [facility] Work Phone: 04-10-2019 12:10-0500 BP Diastolic 85 mm[Hg] [facility] , [place] 04-10-2019 12:10-0500 BP Systolic 128 mm[Hg] [facility] , [place] 04-10-2019 12:10-0500 Pulse (Heart Rate) 83 /min [facility], [place] 04-10-2019 12:10-0500 Pulse Oximetry 99 % [facility] , [place] 04-10-2019 12:10-0500 Respiratory Rate 12 /min [facility], [place] 03-05-2019 09:25-0400 BMI (Body Mass Index) 27.7 kg/m2 [facility] Work Phone: 03-05-2019 09:25-0400 Body Temperature 96.5 [degF] [facility] Work Phone: 03-05-2019 09:25-0400 Body weight 70.94 kg [facility] Work Phone: 03-05-2019 09:25-0400 BP Diastolic 86 mm[Hg] [facility] Work Phone: 03-05-2019 09:25-0400 BP Systolic 110 mm[Hg] [facility] Work Phone: 03-05-2019 09:25-0400 BSA (Body Surface Area) 1.74 m2 [facility] Work Phone: 03-05-2019 09:25-0400 Height 160.02 cm [facility] Work Phone: 03-05-2019 09:25-0400 Pulse (Heart Rate) 86 /min [facility] Work Phone: 03-05-2019 09:25-0400 Pulse Oximetry 97 % [facility] Work Phone: 03-05-2019 09:25-0400 Respiratory Rate 18 /min [facility] Work Phone: 12-22-2018 10:11-0400 BMI (Body Mass Index) 28.4 kg/m2 [facility] Work Phone: 12-22-2018 10:11-0400 Body Temperature 98.2 [degF] [facility] Work Phone: 12-22-2018 10:11-0400 Body weight 72.85 kg [facility] Work Phone: 12-22-2018 10:11-0400 BP Diastolic 80 mm[Hg] [facility] Work Phone: 12-22-2018 10:11-0400 BP Systolic 110 mm[Hg] [facility] Work Phone: 12-22-2018 10:11-0400 BSA (Body Surface Area) 1.76 m2 [facility] Work Phone: 12-22-2018 10:11-0400 Height 160.02 cm [facility] Work Phone: 12-22-2018 10:11-0400 Pulse (Heart Rate) 67 /min [facility] Work Phone: 12-22-2018 10:11-0400 Pulse Oximetry 94 % [facility] Work Phone: 12-22-2018 10:11-0400 Respiratory Rate 14 /min [facility] Work Phone: 11-06-2018 13:55-0400 BMI (Body Mass Index) 28.7 kg/m2 [facility] Work Phone: 11-06-2018 13:55-0400 Body Temperature 97.8 [degF] [facility] Work Phone: 11-06-2018 13:55-0400 Body weight 73.48 kg [facility] Work Phone: 11-06-2018 13:55-0400 BP Diastolic 76 mm[Hg] [facility] Work Phone: 11-06-2018 13:55-0400 BP Systolic 110 mm[Hg] [facility] Work Phone: 11-06-2018 13:55-0400 BSA (Body Surface Area) 1.77 m2 [facility] Work Phone: 11-06-2018 13:55-0400 Height 160.02 cm [facility] Work Phone: 11-06-2018 13:55-0400 Pulse (Heart Rate) 80 /min [facility] Work Phone: 11-06-2018 13:55-0400 Pulse Oximetry 98 % [facility] Work Phone: 11-06-2018 13:55-0400 Respiratory Rate 22 /min [facility] Work Phone: 09-11-2018 10:25-0400 Body height 160.02 cm Karla Clark [facility] Work Phone: [facility] Work Phone: 09-11-2018 10:25-0400 Body mass index (BMI) [Ratio] 29.6 kg/m2 Karla Clark [facility] Work Phone: [facility] Work Phone: 09-11-2018 10:25-0400 Body surface area Derived from formula 1.79 m2 Karla Amber [facility] Work Phone: [facility] Work Phone: 09-11-2018 10:25-0400 Body temperature 97.4 [degF] Karla Clark CNP Work Phone: [facility] Work Phone: 09-11-2018 10:25-0400 Body weight 75.75 kg Karla Clark CNP Work Phone: [facility] Work Phone: 09-11-2018 10:25-0400 Diastolic blood pressure 76 mm[Hg] Karla Clark CNP Work Phone: [facility] Work Phone: 09-11-2018 10:25-0400 Heart rate 78 /min Karla Clark CNP Work Phone: [facility] Work Phone: 09-11-2018 10:25-0400 Pulse Oximetry 99 % Karla Clark [facility] Work Phone: 09-11-2018 10:25-0400 Respiratory rate 22 /min Karla Clark CNP Work Phone: [facility] Work Phone: 09-11-2018 10:25-0400 SaO2% (BldA) [Mass fraction] 99 % Karla Clark CNP Work Phone: [facility] Work Phone: 09-11-2018 10:25-0400 Systolic blood pressure 120 mm[Hg] Karla Clark CNP Work Phone: [facility] Work Phone: 09-04-2018 13:24-0400 Body height 160.02 cm Karla Clark CNP Work Phone: [facility] Work Phone: 09-04-2018 13:24-0400 Body mass index (BMI) [Ratio] 29.8 kg/m2 Karla Clark CNP Work Phone: [facility] Work Phone: 09-04-2018 13:24-0400 Body surface area Derived from formula 1.8 m2 Karla Clark CNP Work Phone: [facility] Work Phone: 09-04-2018 13:24-0400 Body temperature 98.3 [degF] Karla Clrak CNP Work Phone: [facility] Work Phone: 09-04-2018 13:24-0400 Body weight 76.3 kg Karla Clark CNP Work Phone: [facility] Work Phone: 09-04-2018 13:24-0400 Diastolic blood pressure 90 mm[Hg] Karla Clark CNP Work Phone: [facility] Work Phone: 09-04-2018 13:24-0400 Heart rate 86 /min Karla Clark CNP Work Phone: [facility] Work Phone: 09-04-2018 13:24-0400 Inhaled oxygen concentration 21 % Karla Clark CNP Work Phone: [facility] Work Phone: 09-04-2018 13:24-0400 Inhaled oxygen flow rate 0 L/min Karla Clark CNP Work Phone: [facility] Work Phone: 09-04-2018 13:24-0400 Respiratory rate 20 /min Karla Clark CNP Work Phone: [facility] Work Phone: 09-04-2018 13:24-0400 Systolic blood pressure 146 mm[Hg] Karla Clark CNP Work Phone: [facility] Work Phone: 07-31-2018 13:37-0500 Body height 160.02 cm Karla Clark CNP Work Phone: [facility] Work Phone: 07-31-2018 13:37-0500 Body mass index (BMI) [Ratio] 29.9 kg/m2 Karla Clark CNP Work Phone: [facility] Work Phone: 07-31-2018 13:37-0500 Body surface area Derived from formula 1.8 m2 Karla Clark CNP Work Phone: [facility] Work Phone: 07-31-2018 13:37-0500 Body temperature 97.9 [degF] Karla Clark CNP Work Phone: [facility] Work Phone: 07-31-2018 13:37-0500 Body weight 76.66 kg Karla Clark CNP Work Phone: [facility] Work Phone: 07-31-2018 13:37-0500 Diastolic blood pressure 74 mm[Hg] Karla Clark CNP Work Phone: [facility] Work Phone: 07-31-2018 13:37-0500 Heart rate 51 /min Karla Clark CNP Work Phone: [facility] Work Phone: 07-31-2018 13:37-0500 Pulse Oximetry 100 % Karla Clark [facility] Work Phone: 07-31-2018 13:37-0500 Respiratory rate 22 /min Karla Clark CNP Work Phone: [facility] Work Phone: 07-31-2018 13:37-0500 SaO2% (BldA) [Mass fraction] 100 % Karla Clark CNP Work Phone: [facility] Work Phone: 07-31-2018 13:37-0500 Systolic blood pressure 122 mm[Hg] Karla Clark CNP Work Phone: [facility] Work Phone: 05-08-2018 17:00-0500 BMI (Body Mass Index) 29.94 kg/m2 [facility] 05-08-2018 17:00-0500 Body Temperature 97.9 [degF] [facility] 05-08-2018 17:00-0500 BP Diastolic 70 mm[Hg] [facility] 05-08-2018 17:00-0500 BP Systolic 124 mm[Hg] [facility] 05-08-2018 17:00-0500 BSA (Body Surface Area) 1.85 m2 [facility] 05-08-2018 17:00-0500 Height 160.02 cm [facility] 05-08-2018 17:00-0500 Pulse (Heart Rate) 70 /min [facility] 05-08-2018 17:00-0500 Pulse Oximetry 99 % [facility] 05-08-2018 17:00-0500 Respiratory Rate 20 /min [facility] 05-08-2018 17:00-0500 Weight 76.66 kg [facility] 05-08-2018 15:00-0500 Body mass index (BMI) [Ratio] 29.9 kg/m2 [facility] Work Phone: [facility] Work Phone: 05-08-2018 15:00-0500 Body surface area Derived from formula 1.8 m2 [facility] Work Phone: [facility] Work Phone: 05-08-2018 15:00-0500 Body weight 76.66 kg Karla Clark [employer] Work Phone: [facility] Work Phone: 03-20-2018 13:39-0400 BMI (Body Mass Index) 30.11 kg/m2 [facility] 03-20-2018 13:39-0400 Body Temperature 97.9 [degF] [facility] 03-20-2018 13:39-0400 BP Diastolic 84 mm[Hg] [facility] 03-20-2018 13:39-0400 BP Systolic 122 mm[Hg] [facility] 03-20-2018 13:39-0400 BSA (Body Surface Area) 1.85 m2 [facility] 03-20-2018 13:39-0400 Height 160.02 cm [facility] 03-20-2018 13:39-0400 Pulse (Heart Rate) 59 /min [facility] 03-20-2018 13:39-0400 Pulse Oximetry 98 % [facility] 03-20-2018 13:39-0400 Respiratory Rate 20 /min [facility] 03-20-2018 13:39-0400 Weight 77.11 kg [facility] 03-20-2018 10:39-0400 Body height 160.02 cm Karla Clark [facility] Work Phone: [facility] Work Phone: 03-20-2018 10:39-0400 Body mass index (BMI) [Ratio] 30.1 kg/m2 Karla Clark CNP Work Phone: [facility] Work Phone: 03-20-2018 10:39-0400 Body surface area Derived from formula 1.8 m2 Karla Clark CNP Work Phone: [facility] Work Phone: 03-20-2018 10:39-0400 Body temperature 97.9 [degF] Karla Clark CNP Work Phone: [facility] Work Phone: 03-20-2018 10:39-0400 Body weight 77.11 kg Karla Clark CNP Work Phone: [facility] Work Phone: 03-20-2018 10:39-0400 Diastolic blood pressure 84 mm[Hg] Karla Clark CNP Work Phone: [facility] Work Phone: 03-20-2018 10:39-0400 Heart rate 59 /min Karla Clark CNP Work Phone: [facility] Work Phone: 03-20-2018 10:39-0400 Respiratory rate 20 /min Karla Clark CNP Work Phone: [facility] Work Phone: 03-20-2018 10:39-0400 Systolic blood pressure 122 mm[Hg] Karla Clark CNP Work Phone: [facility] Work Phone: 02-11-2018 17:45-0400 BMI (Body Mass Index) 30.11 kg/m2 Karla Amber [facility] 02-11-2018 17:45-0400 Body Temperature 98.6 [degF] Karlanaveed Clark [facility] 02-11-2018 17:45-0400 BP Diastolic 80 mm[Hg] Karla Amber [facility] 02-11-2018 17:45-0400 BP Systolic 124 mm[Hg] [facility] 02-11-2018 17:45-0400 BSA (Body Surface Area) 1.85 m2 [facility] 02-11-2018 17:45-0400 Height 160.02 cm [facility] 02-11-2018 17:45-0400 Pulse (Heart Rate) 72 /min [facility] 02-11-2018 17:45-0400 Pulse Oximetry 97 % [facility] 02-11-2018 17:45-0400 Respiratory Rate 20 /min [facility] 02-11-2018 17:45-0400 Weight 77.11 kg [facility] 02-11-2018 16:45-0400 BMI (Body Mass Index) 30.11 kg/m2 [facility] 02-11-2018 16:45-0400 Body Temperature 98.6 [degF] [facility] 02-11-2018 16:45-0400 BP Diastolic 80 mm[Hg] [facility] 02-11-2018 16:45-0400 BP Systolic 124 mm[Hg] [facility] 02-11-2018 16:45-0400 BSA (Body Surface Area) 1.85 m2 [facility] 02-11-2018 16:45-0400 Height 160.02 cm [facility] 02-11-2018 16:45-0400 Pulse (Heart Rate) 72 /min Karla Clark [facility] 02-11-2018 16:45-0400 Pulse Oximetry 97 % Karla Clark [facility] 02-11-2018 16:45-0400 Respiratory Rate 20 /min Karla Clark [facility] 02-11-2018 16:45-0400 Weight 77.11 kg Karla Clark [facility] 02-11-2018 14:45-0400 Body height 160.02 cm Karla Clark CNP Work Phone: [facility] Work Phone: 02-11-2018 14:45-0400 Body mass index (BMI) [Ratio] 30.1 kg/m2 Karla Clark CNP Work Phone: [facility] Work Phone: 02-11-2018 14:45-0400 Body surface area Derived from formula 1.8 m2 Karla Clark CNP Work Phone: [facility] Work Phone: 02-11-2018 14:45-0400 Body temperature 98.6 [degF] Karla Clark CNP Work Phone: [facility] Work Phone: 02-11-2018 14:45-0400 Body weight 77.11 kg Karla Clark CNP Work Phone: [facility] Work Phone: 02-11-2018 14:45-0400 Diastolic blood pressure 80 mm[Hg] Karla Clark CNP Work Phone: [facility] Work Phone: 02-11-2018 14:45-0400 Heart rate 72 /min Karla Clark CNP Work Phone: [facility] Work Phone: 02-11-2018 14:45-0400 Respiratory rate 20 /min Karla Clark CNP Work Phone: [facility] Work Phone: 02-11-2018 14:45-0400 Systolic blood pressure 124 mm[Hg] Karla Clark [employer] Work Phone: [facility] Work Phone: 12-19-2017 17:08-0400 BMI (Body Mass Index) 30.29 kg/m2 [facility] 12-19-2017 17:08-0400 Body Temperature 98.7 [degF] [facility] 12-19-2017 17:08-0400 BP Diastolic 80 mm[Hg] [facility] 12-19-2017 17:08-0400 BP Systolic 122 mm[Hg] [facility] 12-19-2017 17:08-0400 BSA (Body Surface Area) 1.86 m2 [facility] 12-19-2017 17:08-0400 Height 160.02 cm [facility] 12-19-2017 17:08-0400 Pulse (Heart Rate) 97 /min [facility] 12-19-2017 17:08-0400 Pulse Oximetry 96 % [facility] 12-19-2017 17:08-0400 Respiratory Rate 18 /min [facility] 12-19-2017 17:08-0400 Weight 77.57 kg [facility] 12-19-2017 16:08-0400 BMI (Body Mass Index) 30.29 kg/m2 [facility] 12-19-2017 16:08-0400 Body Temperature 98.7 [degF] [facility] 12-19-2017 16:08-0400 BP Diastolic 80 mm[Hg] [facility] 12-19-2017 16:08-0400 BP Systolic 122 mm[Hg] [facility] 12-19-2017 16:08-0400 BSA (Body Surface Area) 1.86 m2 [facility] 12-19-2017 16:08-0400 Height 160.02 cm [facility] 12-19-2017 16:08-0400 Pulse (Heart Rate) 97 /min [facility] 12-19-2017 16:08-0400 Pulse Oximetry 96 % [facility] 12-19-2017 16:08-0400 Respiratory Rate 18 /min [facility] 12-19-2017 16:08-0400 Weight 77.57 kg [facility] 12-19-2017 14:08-0400 Body height 160.02 cm Karla Amber [facility] Work Phone: [facility] Work Phone: 12-19-2017 14:08-0400 Body mass index (BMI) [Ratio] 30.3 kg/m2 Karla Clark [facility] Work Phone: [facility] Work Phone: 12-19-2017 14:08-0400 Body surface area Derived from formula 1.81 m2 Karla Amber [facility] Work Phone: [facility] Work Phone: 12-19-2017 14:08-0400 Body temperature 98.7 [degF] Karla Clark CNP Work Phone: [facility] Work Phone: 12-19-2017 14:08-0400 Body weight 77.57 kg Karla Clark CNP Work Phone: [facility] Work Phone: 12-19-2017 14:08-0400 Diastolic blood pressure 80 mm[Hg] Karla Clark CNP Work Phone: [facility] Work Phone: 12-19-2017 14:08-0400 Heart rate 97 /min Karla Clark CNP Work Phone: [facility] Work Phone: 12-19-2017 14:08-0400 Respiratory rate 18 /min Karla Clark CNP Work Phone: [facility] Work Phone: 12-19-2017 14:08-0400 Systolic blood pressure 122 mm[Hg] Karla Clark CNP Work Phone: [facility] Work Phone: 10-08-2017 14:21-0400 BMI (Body Mass Index) 29.47 kg/m2 Karla Amber [facility] 10-08-2017 14:21-0400 Body Temperature 97.5 [degF] [facility] 10-08-2017 14:21-0400 BP Diastolic 71 mm[Hg] [facility] 10-08-2017 14:21-0400 BP Systolic 109 mm[Hg] Karla Amber [facility] 10-08-2017 14:21-0400 BSA (Body Surface Area) 1.83 m2 [facility] 10-08-2017 14:21-0400 Height 160.02 cm [facility] 10-08-2017 14:21-0400 Pulse (Heart Rate) 53 /min [facility] 10-08-2017 14:21-0400 Pulse Oximetry 98 % [facility] 10-08-2017 14:21-0400 Respiratory Rate 18 /min [facility] 10-08-2017 14:21-0400 Weight 75.47 kg [facility] 10-08-2017 13:21-0400 BMI (Body Mass Index) 29.47 kg/m2 [facility] 10-08-2017 13:21-0400 Body Temperature 97.5 [degF] [facility] 10-08-2017 13:21-0400 BP Diastolic 71 mm[Hg] [facility] 10-08-2017 13:21-0400 BP Systolic 109 mm[Hg] [facility] 10-08-2017 13:21-0400 BSA (Body Surface Area) 1.83 m2 [facility] 10-08-2017 13:21-0400 Height 160.02 cm [facility] 10-08-2017 13:21-0400 Pulse (Heart Rate) 53 /min [facility] 10-08-2017 13:21-0400 Pulse Oximetry 98 % [facility] 10-08-2017 13:21-0400 Respiratory Rate 18 /min Karla Clark [facility] 10-08-2017 13:21-0400 Weight 75.47 kg Karla Clark [facility] 10-08-2017 11:21-0400 Body height 160.02 cm Karla Clark CNP Work Phone: [facility] Work Phone: 10-08-2017 11:21-0400 Body mass index (BMI) [Ratio] 29.4 kg/m2 Karla Clark CNP Work Phone: [facility] Work Phone: 10-08-2017 11:21-0400 Body surface area Derived from formula 1.79 m2 Karla Clark CNP Work Phone: [facility] Work Phone: 10-08-2017 11:21-0400 Body temperature 97.5 [degF] Karla Clark CNP Work Phone: [facility] Work Phone: 10-08-2017 11:21-0400 Body weight 75.3 kg Karla Clark CNP Work Phone: [facility] Work Phone: 10-08-2017 11:21-0400 Diastolic blood pressure 71 mm[Hg] Karla Clark CNP Work Phone: [facility] Work Phone: 10-08-2017 11:21-0400 Heart rate 53 /min Karla Clark CNP Work Phone: [facility] Work Phone: 10-08-2017 11:21-0400 Respiratory rate 18 /min Karla Clark CNP Work Phone: [facility] Work Phone: 10-08-2017 11:21-0400 Systolic blood pressure 109 mm[Hg] Karla Clark CNP Work Phone: [facility] Work Phone: 09-17-2017 13:46-0400 BMI (Body Mass Index) 29.43 kg/m2 [facility] 09-17-2017 13:46-0400 Body Temperature 98.9 [degF] [facility] 09-17-2017 13:46-0400 BP Diastolic 61 mm[Hg] [facility] 09-17-2017 13:46-0400 BP Systolic 91 mm[Hg] [facility] 09-17-2017 13:46-0400 BSA (Body Surface Area) 1.83 m2 [facility] 09-17-2017 13:46-0400 Height 160.02 cm [facility] 09-17-2017 13:46-0400 Pulse (Heart Rate) 54 /min [facility] 09-17-2017 13:46-0400 Pulse Oximetry 96 % [facility] 09-17-2017 13:46-0400 Respiratory Rate 18 /min [facility] 09-17-2017 13:46-0400 Weight 75.35 kg [facility] 09-17-2017 12:46-0400 BMI (Body Mass Index) 29.43 kg/m2 [facility] 09-17-2017 12:46-0400 Body Temperature 98.9 [degF] [facility] 09-17-2017 12:46-0400 BP Diastolic 61 mm[Hg] [facility] 09-17-2017 12:46-0400 BP Systolic 91 mm[Hg] [facility] 09-17-2017 12:46-0400 BSA (Body Surface Area) 1.83 m2 [facility] 09-17-2017 12:46-0400 Height 160.02 cm [facility] 09-17-2017 12:46-0400 Pulse (Heart Rate) 54 /min [facility] 09-17-2017 12:46-0400 Pulse Oximetry 96 % [facility] 09-17-2017 12:46-0400 Respiratory Rate 18 /min [facility] 09-17-2017 12:46-0400 Weight 75.35 kg [facility] 09-17-2017 10:46-0400 Body height 160.02 cm Karla Clark [facility] Work Phone: [facility] Work Phone: 09-17-2017 10:46-0400 Body mass index (BMI) [Ratio] 29.4 kg/m2 Karal Clark [facility] Work Phone: [facility] Work Phone: 09-17-2017 10:46-0400 Body surface area Derived from formula 1.79 m2 Karla Clark [facility] Work Phone: [facility] Work Phone: 09-17-2017 10:46-0400 Body temperature 98.9 [degF] Karla Clark [facility] Work Phone: [facility] Work Phone: 09-17-2017 10:46-0400 Body weight 75.3 kg Karla Clark CNP Work Phone: [facility] Work Phone: 09-17-2017 10:46-0400 Diastolic blood pressure 61 mm[Hg] Karla Clark CNP Work Phone: [facility] Work Phone: 09-17-2017 10:46-0400 Heart rate 54 /min Karla Clark CNP Work Phone: [facility] Work Phone: 09-17-2017 10:46-0400 Respiratory rate 18 /min Karla Clark CNP Work Phone: [facility] Work Phone: 09-17-2017 10:46-0400 Systolic blood pressure 91 mm[Hg] Karla Clark CNP Work Phone: [facility] Work Phone: 07-30-2017 11:43-0500 BMI (Body Mass Index) 28.87 kg/m2 [facility] 07-30-2017 11:43-0500 Body Temperature 97.2 [degF] [facility] 07-30-2017 11:43-0500 BP Diastolic 84 mm[Hg] [facility] 07-30-2017 11:43-0500 BP Systolic 119 mm[Hg] [facility] 07-30-2017 11:43-0500 BSA (Body Surface Area) 1.81 m2 [facility] 07-30-2017 11:43-0500 Height 160.02 cm [facility] 07-30-2017 11:43-0500 Pulse (Heart Rate) 63 /min [facility] 07-30-2017 11:43-0500 Pulse Oximetry 98 % [facility] 07-30-2017 11:43-0500 Respiratory Rate 20 /min [facility] 07-30-2017 11:43-0500 Weight 73.94 kg [facility] 07-30-2017 10:43-0500 BMI (Body Mass Index) 28.87 [facility] 07-30-2017 10:43-0500 Body Temperature 97.2 [degF] [facility] 07-30-2017 10:43-0500 BP Diastolic 84 mm[Hg] [facility] 07-30-2017 10:43-0500 BP Systolic 119 mm[Hg] [facility] 07-30-2017 10:43-0500 BSA (Body Surface Area) 1.81 m2 [facility] 07-30-2017 10:43-0500 Height 160.02 cm [facility] 07-30-2017 10:43-0500 Pulse (Heart Rate) 63 /min [facility] 07-30-2017 10:43-0500 Pulse Oximetry 98 % [facility] 07-30-2017 10:43-0500 Respiratory Rate 20 /min [facility] 07-30-2017 10:43-0500 Weight 73.94 kg [facility] 05-14-2017 12:46-0500 BMI (Body Mass Index) 29.23 kg/m2 [facility] 05-14-2017 12:46-0500 Body Temperature 98.2 [degF] [facility] 05-14-2017 12:46-0500 BP Diastolic 80 mm[Hg] [facility] 05-14-2017 12:46-0500 BP Systolic 118 mm[Hg] [facility] 05-14-2017 12:46-0500 BSA (Body Surface Area) 1.82 m2 [facility] 05-14-2017 12:46-0500 Height 160.02 cm [facility] 05-14-2017 12:46-0500 Pulse (Heart Rate) 88 /min [facility] 05-14-2017 12:46-0500 Pulse Oximetry 98 % [facility] 05-14-2017 12:46-0500 Respiratory Rate 18 /min [facility] 05-14-2017 12:46-0500 Weight 74.84 kg [facility] 05-14-2017 11:46-0500 BMI (Body Mass Index) 29.23 kg/m2 [facility] 05-14-2017 11:46-0500 Body Temperature 98.2 [degF] [facility] 05-14-2017 11:46-0500 BP Diastolic 80 mm[Hg] [facility] 05-14-2017 11:46-0500 BP Systolic 118 mm[Hg] [facility] 05-14-2017 11:46-0500 BSA (Body Surface Area) 1.82 m2 [facility] 05-14-2017 11:46-0500 Height 160.02 cm [facility] 05-14-2017 11:46-0500 Pulse (Heart Rate) 88 /min [facility] 05-14-2017 11:46-0500 Pulse Oximetry 98 % [facility] 05-14-2017 11:46-0500 Respiratory Rate 18 /min [facility] 05-14-2017 11:46-0500 Weight 74.84 kg [facility] 04-18-2017 17:33-0500 BMI (Body Mass Index) 29.25 kg/m2 [facility] 04-18-2017 17:33-0500 Body Temperature 97.5 [degF] [facility] 04-18-2017 17:33-0500 BP Diastolic 60 mm[Hg] [facility] 04-18-2017 17:33-0500 BP Systolic 94 mm[Hg] [facility] 04-18-2017 17:33-0500 BSA (Body Surface Area) 1.82 m2 [facility] 04-18-2017 17:33-0500 Height 160.02 cm [facility] 04-18-2017 17:33-0500 Pulse (Heart Rate) 48 /min [facility] 04-18-2017 17:33-0500 Pulse Oximetry 97 % [facility] 04-18-2017 17:33-0500 Respiratory Rate 18 /min [facility] 04-18-2017 17:33-0500 Weight 74.9 kg [facility] 04-18-2017 16:33-0500 BMI (Body Mass Index) 29.25 kg/m2 [facility] 04-18-2017 16:33-0500 Body Temperature 97.5 [degF] [facility] 04-18-2017 16:33-0500 BP Diastolic 60 mm[Hg] [facility] 04-18-2017 16:33-0500 BP Systolic 94 mm[Hg] [facility] 04-18-2017 16:33-0500 BSA (Body Surface Area) 1.82 m2 [facility] 04-18-2017 16:33-0500 Height 160.02 cm [facility] 04-18-2017 16:33-0500 Pulse (Heart Rate) 48 /min [facility] 04-18-2017 16:33-0500 Pulse Oximetry 97 % [facility] 04-18-2017 16:33-0500 Respiratory Rate 18 /min [facility] 04-18-2017 16:33-0500 Weight 74.9 kg [facility] 03-07-2017 17:07-0400 BMI (Body Mass Index) 29.25 kg/m2 [facility] 03-07-2017 17:07-0400 Body Temperature 98.7 [degF] [facility] 03-07-2017 17:07-0400 BP Diastolic 68 mm[Hg] [facility] 03-07-2017 17:07-0400 BP Systolic 100 mm[Hg] [facility] 03-07-2017 17:07-0400 BSA (Body Surface Area) 1.82 m2 [facility] 03-07-2017 17:07-0400 Height 160.02 cm [facility] 03-07-2017 17:07-0400 Pulse (Heart Rate) 65 /min [facility] 03-07-2017 17:07-0400 Pulse Oximetry 100 % [facility] 03-07-2017 17:07-0400 Respiratory Rate 18 /min [facility] 03-07-2017 17:07-0400 Weight 74.9 kg [facility] 03-07-2017 16:07-0400 BMI (Body Mass Index) 29.25 kg/m2 [facility] 03-07-2017 16:07-0400 Body Temperature 98.7 [degF] [facility] 03-07-2017 16:07-0400 BP Diastolic 68 mm[Hg] [facility] 03-07-2017 16:07-0400 BP Systolic 100 mm[Hg] [facility] 03-07-2017 16:07-0400 BSA (Body Surface Area) 1.82 m2 [facility] 03-07-2017 16:07-0400 Height 160.02 cm [facility] 03-07-2017 16:07-0400 Pulse (Heart Rate) 65 /min [facility] 03-07-2017 16:07-0400 Pulse Oximetry 100 % [facility] 03-07-2017 16:07-0400 Respiratory Rate 18 /min [facility] 03-07-2017 16:07-0400 Weight 74.9 kg [facility] 03-05-2017 16:29-0400 BMI (Body Mass Index) 29.1 kg/m2 [facility] 03-05-2017 16:29-0400 Body Temperature 97.6 [degF] [facility] 03-05-2017 16:29-0400 BP Diastolic 60 mm[Hg] [facility] 03-05-2017 16:29-0400 BP Systolic 102 mm[Hg] [facility] 03-05-2017 16:29-0400 BSA (Body Surface Area) 1.82 m2 [facility] 03-05-2017 16:29-0400 Height 160.02 cm [facility] 03-05-2017 16:29-0400 Pulse (Heart Rate) 60 /min [facility] 03-05-2017 16:29-0400 Pulse Oximetry 99 % [facility] 03-05-2017 16:29-0400 Respiratory Rate 18 /min [facility] 03-05-2017 16:29-0400 Weight 74.5 kg [facility] 03-05-2017 15:29-0400 BMI (Body Mass Index) 29.1 kg/m2 [facility] 03-05-2017 15:29-0400 Body Temperature 97.6 [degF] [facility] 03-05-2017 15:29-0400 BP Diastolic 60 mm[Hg] [facility] 03-05-2017 15:29-0400 BP Systolic 102 mm[Hg] [facility] 03-05-2017 15:29-0400 BSA (Body Surface Area) 1.82 m2 [facility] 03-05-2017 15:29-0400 Height 160.02 cm [facility] 03-05-2017 15:29-0400 Pulse (Heart Rate) 60 /min [facility] 03-05-2017 15:29-0400 Pulse Oximetry 99 % [facility] 03-05-2017 15:29-0400 Respiratory Rate 18 /min [facility] 03-05-2017 15:29-0400 Weight 74.5 kg [facility] 01-01-2017 11:52-0400 BMI (Body Mass Index) 28.59 kg/m2 [facility] 01-01-2017 11:52-0400 Body Temperature 97.5 [degF] [facility] 01-01-2017 11:52-0400 BP Diastolic 69 mm[Hg] [facility] 01-01-2017 11:52-0400 BP Systolic 114 mm[Hg] [facility] 01-01-2017 11:52-0400 BSA (Body Surface Area) 1.8 m2 [facility] 01-01-2017 11:52-0400 Height 160.02 cm [facility] 01-01-2017 11:52-0400 Pulse (Heart Rate) 61 /min [facility] 01-01-2017 11:52-0400 Pulse Oximetry 99 % [facility] 01-01-2017 11:52-0400 Respiratory Rate 20 /min [facility] 01-01-2017 11:52-0400 Weight 73.2 kg [facility] 01-01-2017 10:52-0400 BMI (Body Mass Index) 28.59 kg/m2 [facility] 01-01-2017 10:52-0400 Body Temperature 97.5 [degF] [facility] 01-01-2017 10:52-0400 BP Diastolic 69 mm[Hg] [facility] 01-01-2017 10:52-0400 BP Systolic 114 mm[Hg] [facility] 01-01-2017 10:52-0400 BSA (Body Surface Area) 1.8 m2 [facility] 01-01-2017 10:52-0400 Height 160.02 cm [facility] 01-01-2017 10:52-0400 Pulse (Heart Rate) 61 /min [facility] 01-01-2017 10:52-0400 Pulse Oximetry 99 % [facility] 01-01-2017 10:52-0400 Respiratory Rate 20 /min [facility] 01-01-2017 10:52-0400 Weight 73.2 kg [facility] 12-06-2016 12:51-0400 BMI (Body Mass Index) 28.79 kg/m2 [facility] 12-06-2016 12:51-0400 Body Temperature 97.5 [degF] [facility] 12-06-2016 12:51-0400 BP Diastolic 80 mm[Hg] [facility] 12-06-2016 12:51-0400 BP Systolic 104 mm[Hg] [facility] 12-06-2016 12:51-0400 BSA (Body Surface Area) 1.81 m2 [facility] 12-06-2016 12:51-0400 Height 160.02 cm [facility] 12-06-2016 12:51-0400 Pulse (Heart Rate) 81 /min [facility] 12-06-2016 12:51-0400 Pulse Oximetry 98 % [facility] 12-06-2016 12:51-0400 Respiratory Rate 18 /min [facility] 12-06-2016 12:51-0400 Weight 73.71 kg [facility] 12-06-2016 11:51-0400 BMI (Body Mass Index) 28.79 kg/m2 [facility] 12-06-2016 11:51-0400 Body Temperature 97.5 [degF] [facility] 12-06-2016 11:51-0400 BP Diastolic 80 mm[Hg] [facility] 12-06-2016 11:51-0400 BP Systolic 104 mm[Hg] [facility] 12-06-2016 11:51-0400 BSA (Body Surface Area) 1.81 m2 [facility] 12-06-2016 11:51-0400 Height 160.02 cm [facility] 12-06-2016 11:51-0400 Pulse (Heart Rate) 81 /min [facility] 12-06-2016 11:51-0400 Pulse Oximetry 98 % [facility] 12-06-2016 11:51-0400 Respiratory Rate 18 /min [facility] 12-06-2016 11:51-0400 Weight 73.71 kg [facility] 11-06-2016 14:21-0400 BMI (Body Mass Index) 29.58 kg/m2 [facility] 11-06-2016 14:21-0400 Body Temperature 97.5 [degF] [facility] 11-06-2016 14:21-0400 BP Diastolic 76 mm[Hg] [facility] 11-06-2016 14:21-0400 BP Systolic 117 mm[Hg] [facility] 11-06-2016 14:21-0400 BSA (Body Surface Area) 1.83 m2 [facility] 11-06-2016 14:-0400 Height 160.02 cm [facility] 11-06-2016 14:21-0400 Pulse (Heart Rate) 64 /min [facility] 11-06-2016 14:21-0400 Pulse Oximetry 97 % [facility] 11-06-2016 14:21-0400 Respiratory Rate 18 /min [facility] 11-06-2016 14:21-0400 Weight 75.75 kg [facility] 11-06-2016 13:21-0400 BMI (Body Mass Index) 29.58 kg/m2 [facility] 11-06-2016 13:21-0400 Body Temperature 97.5 [degF] [facility] 11-06-2016 13:21-0400 BP Diastolic 76 mm[Hg] [facility] 11-06-2016 13:21-0400 BP Systolic 117 mm[Hg] [facility] 11-06-2016 13:21-0400 BSA (Body Surface Area) 1.83 m2 [facility] 11-06-2016 13:21-0400 Height 160.02 cm [facility] 11-06-2016 13:21-0400 Pulse (Heart Rate) 64 /min [facility] 11-06-2016 13:21-0400 Pulse Oximetry 97 % [facility] 11-06-2016 13:21-0400 Respiratory Rate 18 /min [facility] 11-06-2016 13:21-0400 Weight 75.75 kg [facility] 09-27-2016 17:31-0400 BMI (Body Mass Index) 28.67 kg/m2 [facility] 09-27-2016 17:31-0400 Body Temperature 98.2 [degF] [facility] 09-27-2016 17:31-0400 BP Diastolic 64 mm[Hg] [facility] 09-27-2016 17:31-0400 BP Systolic 105 mm[Hg] [facility] 09-27-2016 17:31-0400 BSA (Body Surface Area) 1.85 m2 [facility] 09-27-2016 17:31-0400 Height 162.56 cm [facility] 09-27-2016 17:31-0400 Pulse (Heart Rate) 102 /min [facility] 09-27-2016 17:31-0400 Pulse Oximetry 95 % [facility] 09-27-2016 17:31-0400 Respiratory Rate 18 /min [facility] 09-27-2016 17:31-0400 Weight 75.75 kg [facility] 09-27-2016 16:31-0400 BMI (Body Mass Index) 28.67 kg/m2 [facility] 09-27-2016 16:31-0400 Body Temperature 98.2 [degF] [facility] 09-27-2016 16:31-0400 BP Diastolic 64 mm[Hg] [facility] 09-27-2016 16:31-0400 BP Systolic 105 mm[Hg] [facility] 09-27-2016 16:31-0400 BSA (Body Surface Area) 1.85 m2 [facility] 09-27-2016 16:31-0400 Height 162.56 cm [facility] 09-27-2016 16:31-0400 Pulse (Heart Rate) 102 /min [facility] 09-27-2016 16:31-0400 Pulse Oximetry 95 % [facility] 09-27-2016 16:31-0400 Respiratory Rate 18 /min [facility] 09-27-2016 16:31-0400 Weight 75.75 kg [facility] 08-21-2016 13:22-0400 BMI (Body Mass Index) 28.41 kg/m2 [facility] 08-21-2016 13:22-0400 Body Temperature 97.7 [degF] [facility] 08-21-2016 13:22-0400 BP Diastolic 80 mm[Hg] [facility] 08-21-2016 13:22-0400 BP Systolic 110 mm[Hg] [facility] 08-21-2016 13:22-0400 BSA (Body Surface Area) 1.84 m2 [facility] 08-21-2016 13:22-0400 Height 162.56 cm [facility] 08-21-2016 13:22-0400 Pulse (Heart Rate) 58 /min [facility] 08-21-2016 13:22-0400 Pulse Oximetry 97 % [facility] 08-21-2016 13:22-0400 Respiratory Rate 18 /min [facility] 08-21-2016 13:22-0400 Weight 75.07 kg [facility] 08-21-2016 12:22-0400 BMI (Body Mass Index) 28.41 kg/m2 [facility] 08-21-2016 12:22-0400 Body Temperature 97.7 [degF] [facility] 08-21-2016 12:22-0400 BP Diastolic 80 mm[Hg] [facility] 08-21-2016 12:22-0400 BP Systolic 110 mm[Hg] [facility] 08-21-2016 12:22-0400 BSA (Body Surface Area) 1.84 m2 [facility] 08-21-2016 12:22-0400 Height 162.56 cm [facility] 08-21-2016 12:22-0400 Pulse (Heart Rate) 58 /min [facility] 08-21-2016 12:22-0400 Pulse Oximetry 97 % [facility] 08-21-2016 12:22-0400 Respiratory Rate 18 /min [facility] 08-21-2016 12:22-0400 Weight 75.07 kg [facility] 06-26-2016 16:13-0500 BMI (Body Mass Index) 28.9 kg/m2 [facility] 06-26-2016 16:13-0500 Body Temperature 97 [degF] [facility] 06-26-2016 16:13-0500 BP Diastolic 80 mm[Hg] [facility] 06-26-2016 16:13-0500 BP Systolic 106 mm[Hg] [facility] 06-26-2016 16:13-0500 BSA (Body Surface Area) 1.86 m2 [facility] 06-26-2016 16:13-0500 Height 162.56 cm [facility] 06-26-2016 16:13-0500 Pulse (Heart Rate) 61 /min [facility] 06-26-2016 16:13-0500 Pulse Oximetry 97 % [facility] 06-26-2016 16:13-0500 Respiratory Rate 18 /min [facility] 06-26-2016 16:13-0500 Weight 76.37 kg [facility] 06-26-2016 15:13-0500 BMI (Body Mass Index) 28.9 kg/m2 [facility] 06-26-2016 15:13-0500 Body Temperature 97 [degF] [facility] 06-26-2016 15:13-0500 BP Diastolic 80 mm[Hg] [facility] 06-26-2016 15:13-0500 BP Systolic 106 mm[Hg] [facility] 06-26-2016 15:13-0500 BSA (Body Surface Area) 1.86 m2 [facility] 06-26-2016 15:13-0500 Height 162.56 cm [facility] 06-26-2016 15:13-0500 Pulse (Heart Rate) 61 /min [facility] 06-26-2016 15:13-0500 Pulse Oximetry 97 % [facility] 06-26-2016 15:13-0500 Respiratory Rate 18 /min [facility] 06-26-2016 15:13-0500 Weight 76.37 kg [facility] 06-12-2016 13:32-0500 BMI (Body Mass Index) 27.85 kg/m2 [facility] 06-12-2016 13:32-0500 Body Temperature 97.5 [degF] [facility] 06-12-2016 13:32-0500 BP Diastolic 68 mm[Hg] [facility] 06-12-2016 13:32-0500 BP Systolic 100 mm[Hg] [facility] 06-12-2016 13:32-0500 BSA (Body Surface Area) 1.82 m2 [facility] 06-12-2016 13:32-0500 Height 162.56 cm [facility] 06-12-2016 13:32-0500 Pulse (Heart Rate) 68 /min [facility] 06-12-2016 13:32-0500 Pulse Oximetry 98 % [facility] 06-12-2016 13:32-0500 Respiratory Rate 18 /min [facility] 06-12-2016 13:32-0500 Weight 73.6 kg [facility] 06-12-2016 12:32-0500 BMI (Body Mass Index) 27.85 kg/m2 [facility] 06-12-2016 12:32-0500 Body Temperature 97.5 [degF] [facility] 06-12-2016 12:32-0500 BP Diastolic 68 mm[Hg] [facility] 06-12-2016 12:32-0500 BP Systolic 100 mm[Hg] [facility] 06-12-2016 12:32-0500 BSA (Body Surface Area) 1.82 m2 [facility] 06-12-2016 12:32-0500 Height 162.56 cm [facility] 06-12-2016 12:32-0500 Pulse (Heart Rate) 68 /min [facility] 06-12-2016 12:32-0500 Pulse Oximetry 98 % [facility] 06-12-2016 12:32-0500 Respiratory Rate 18 /min [facility] 06-12-2016 12:32-0500 Weight 73.6 kg [facility] 05-22-2016 15:51-0500 BMI (Body Mass Index) 27.81 kg/m2 [facility] 05-22-2016 15:51-0500 Body Temperature 98 [degF] [facility] 05-22-2016 15:51-0500 BP Diastolic 67 mm[Hg] [facility] 05-22-2016 15:51-0500 BP Systolic 104 mm[Hg] [facility] 05-22-2016 15:51-0500 BSA (Body Surface Area) 1.82 m2 [facility] 05-22-2016 15:51-0500 Height 162.56 cm [facility] 05-22-2016 15:51-0500 P[facility] ([facility]) 89 /min [facility] 05-22-2016 15:51-0500 Pulse Oximetry 99 % [facility] 05-22-2016 15:51-0500 Respiratory Rate 18 /min [facility] 05-22-2016 15:51-0500 Weight 73.48 kg [facility] 05-22-2016 14:51-0500 BMI (Body Mass Index) 27.81 kg/m2 [facility] 05-22-2016 14:51-0500 Body Temperature 98 [degF] [facility] 05-22-2016 14:51-0500 BP Diastolic 67 mm[Hg] [facility] 05-22-2016 14:51-0500 BP Systolic 104 mm[Hg] [facility] 05-22-2016 14:51-0500 BSA (Body Surface Area) 1.82 m2 [facility] 05-22-2016 14:51-0500 Height 162.56 cm [facility] 05-22-2016 14:51-0500 Pulse (Heart Rate) 89 /min [facility] 05-22-2016 14:51-0500 Pulse Oximetry 99 % [facility] 05-22-2016 14:51-0500 Respiratory Rate 18 /min [facility] 05-22-2016 14:51-0500 Weight 73.48 kg [facility] 04-10-2016 12:54-0500 BMI (Body Mass Index) 27.7 kg/m2 [facility] 04-10-2016 12:54-0500 Body Temperature 97.8 [degF] [facility] 04-10-2016 12:54-0500 BP Diastolic 74 mm[Hg] [facility] 04-10-2016 12:54-0500 BP Systolic 110 mm[Hg] [facility] 04-10-2016 12:54-0500 BSA (Body Surface Area) 1.82 m2 [facility] 04-10-2016 12:54-0500 Height 162.56 cm [facility] 04-10-2016 12:54-0500 Pulse (Heart Rate) 58 /min [facility] 04-10-2016 12:54-0500 Pulse Oximetry 98 % [facility] 04-10-2016 12:54-0500 Respiratory Rate 20 /min [facility] 04-10-2016 12:54-0500 Weight 73.2 kg [facility] 04-10-2016 11:54-0500 BMI (Body Mass Index) 27.7 kg/m2 [facility] 04-10-2016 11:54-0500 Body Temperature 97.8 [degF] [facility] 04-10-2016 11:54-0500 BP Diastolic 74 mm[Hg] [facility] 04-10-2016 11:54-0500 BP Systolic 110 mm[Hg] [facility] 04-10-2016 11:54-0500 BSA (Body Surface Area) 1.82 m2 [facility] 04-10-2016 11:54-0500 Height 162.56 cm [facility] 04-10-2016 11:54-0500 Pulse (Heart Rate) 58 /min [facility] 04-10-2016 11:54-0500 Pulse Oximetry 98 % [facility] 04-10-2016 11:54-0500 Respiratory Rate 20 /min [facility] 04-10-2016 11:54-0500 Weight 73.2 kg [facility] 03-20-2016 13:39-0400 BMI (Body Mass Index) 27.83 kg/m2 [facility] 03-20-2016 13:39-0400 Body Temperature 98.6 [degF] [facility] 03-20-2016 13:39-0400 BP Diastolic 80 mm[Hg] [facility] 03-20-2016 13:39-0400 BP Systolic 122 mm[Hg] [facility] 03-20-2016 13:39-0400 BSA (Body Surface Area) 1.82 m2 [facility] 03-20-2016 13:39-0400 Height 162.56 cm [facility] 03-20-2016 13:39-0400 Pulse (Heart Rate) 69 /min [facility] 03-20-2016 13:39-0400 Pulse Oximetry 98 % [facility] 03-20-2016 13:39-0400 Respiratory Rate 18 /min [facility] 03-20-2016 13:39-0400 Weight 73.54 kg [facility] 03-20-2016 12:39-0400 BMI (Body Mass Index) 27.83 kg/m2 [facility] 03-20-2016 12:39-0400 Body Temperature 98.6 [degF] [facility] 03-20-2016 12:39-0400 BP Diastolic 80 mm[Hg] [facility] 03-20-2016 12:39-0400 BP Systolic 122 mm[Hg] [facility] 03-20-2016 12:39-0400 BSA (Body Surface Area) 1.82 m2 [facility] 03-20-2016 12:39-0400 Height 162.56 cm [facility] 03-20-2016 12:39-0400 Pulse (Heart Rate) 69 /min [facility] 03-20-2016 12:39-0400 Pulse Oximetry 98 % [facility] 03-20-2016 12:39-0400 Respiratory Rate 18 /min [facility] 03-20-2016 12:39-0400 Weight 73.54 kg [facility] 03-09-2016 14:12-0400 BMI (Body Mass Index) 27.64 kg/m2 [facility] 03-09-2016 14:12-0400 Body Temperature 99.2 [degF] [facility] 03-09-2016 14:12-0400 BP Diastolic 66 mm[Hg] [facility] 03-09-2016 14:12-0400 BP Systolic 102 mm[Hg] [facility] 03-09-2016 14:12-0400 BSA (Body Surface Area) 1.82 m2 [facility] 03-09-2016 14:12-0400 Height 162.56 cm [facility] 03-09-2016 14:12-0400 Pulse (Heart Rate) 70 /min [facility] 03-09-2016 14:12-0400 Pulse Oximetry 97 % [facility] 03-09-2016 14:12-0400 Respiratory Rate 18 /min [facility] 03-09-2016 14:12-0400 Weight 73.03 kg [facility] 03-09-2016 13:12-0400 BMI (Body Mass Index) 27.64 kg/m2 [facility] 03-09-2016 13:12-0400 Body Temperature 99.2 [degF] [facility] 03-09-2016 13:12-0400 BP Diastolic 66 mm[Hg] [facility] 03-09-2016 13:12-0400 BP Systolic 102 mm[Hg] [facility] 03-09-2016 13:12-0400 BSA (Body Surface Area) 1.82 m2 [facility] 03-09-2016 13:12-0400 Height 162.56 cm [facility] 03-09-2016 13:12-0400 Pulse (Heart Rate) 70 /min [facility] 03-09-2016 13:12-0400 Pulse Oximetry 97 % [facility] 03-09-2016 13:12-0400 Respiratory Rate 18 /min [facility] 03-09-2016 13:12-0400 Weight 73.03 kg [facility] 03-06-2016 18:13-0400 BMI (Body Mass Index) 27.72 kg/m2 [facility] 03-06-2016 18:13-0400 Body Temperature 98.6 [degF] [facility] 03-06-2016 18:13-0400 BP Diastolic 70 mm[Hg] [facility] 03-06-2016 18:13-0400 BP Systolic 107 mm[Hg] [facility] 03-06-2016 18:13-0400 BSA (Body Surface Area) 1.82 m2 [facility] 03-06-2016 18:13-0400 Height 162.56 cm [facility] 03-06-2016 18:13-0400 Pulse (Heart Rate) 65 /min [facility] 03-06-2016 18:13-0400 Pulse Oximetry 97 % [facility] 03-06-2016 18:13-0400 Respiratory Rate 18 /min [facility] 03-06-2016 18:13-0400 Weight 73.26 kg [facility] 03-06-2016 17:13-0400 BMI (Body Mass Index) 27.72 kg/m2 [facility] 03-06-2016 17:13-0400 Body Temperature 98.6 [degF] [facility] 03-06-2016 17:13-0400 BP Diastolic 70 mm[Hg] [facility] 03-06-2016 17:13-0400 BP Systolic 107 mm[Hg] [facility] 03-06-2016 17:13-0400 BSA (Body Surface Area) 1.82 m2 [facility] 03-06-2016 17:13-0400 Height 162.56 cm [facility] 03-06-2016 17:13-0400 Pulse (Heart Rate) 65 /min [facility] 03-06-2016 17:13-0400 Pulse Oximetry 97 % [facility] 03-06-2016 17:13-0400 Respiratory Rate 18 /min [facility] 03-06-2016 17:13-0400 Weight 73.26 kg [facility] 02-21-2016 13:12-0400 BMI (Body Mass Index) 28.15 kg/m2 [facility] 02-21-2016 13:12-0400 Body Temperature 97.2 [degF] [facility] 02-21-2016 13:12-0400 BP Diastolic 74 mm[Hg] [facility] 02-21-2016 13:12-0400 BP Systolic 118 mm[Hg] [facility] 02-21-2016 13:12-0400 BSA (Body Surface Area) 1.83 m2 [facility] 02-21-2016 13:12-0400 Height 162.56 cm [facility] 02-21-2016 13:12-0400 Pulse (Heart Rate) 63 /min [facility] 02-21-2016 13:12-0400 Pulse Oximetry 99 % [facility] 02-21-2016 13:12-0400 Respiratory Rate 18 /min [facility] 02-21-2016 13:12-0400 Weight 74.39 kg [facility] 02-21-2016 12:12-0400 BMI (Body Mass Index) 28.15 kg/m2 [facility] 02-21-2016 12:12-0400 Body Temperature 97.2 [degF] [facility] 02-21-2016 12:12-0400 BP Diastolic 74 mm[Hg] [facility] 02-21-2016 12:12-0400 BP Systolic 118 mm[Hg] [facility] 02-21-2016 12:12-0400 BSA (Body Surface Area) 1.83 m2 [facility] 02-21-2016 12:12-0400 Height 162.56 cm [facility] 02-21-2016 12:12-0400 Pulse (Heart Rate) 63 /min [facility] 02-21-2016 12:12-0400 Pulse Oximetry 99 % [facility] 02-21-2016 12:12-0400 Respiratory Rate 18 /min [facility] 02-21-2016 12:12-0400 Weight 74.39 kg [facility] 01-11-2016 13:02-0400 BMI (Body Mass Index) 28.34 kg/m2 [facility] 01-11-2016 13:02-0400 Body Temperature 98.2 [degF] [facility] 01-11-2016 13:02-0400 BP Diastolic 74 mm[Hg] [facility] 01-11-2016 13:02-0400 BP Systolic 126 mm[Hg] [facility] 01-11-2016 13:02-0400 BSA (Body Surface Area) 1.84 m2 [facility] 01-11-2016 13:02-0400 Height 162.56 cm [facility] 01-11-2016 13:02-0400 Pulse (Heart Rate) 69 /min [facility] 01-11-2016 13:02-0400 Pulse Oximetry 97 % [facility] 01-11-2016 13:02-0400 Respiratory Rate 18 /min [facility] 01-11-2016 13:02-0400 Weight 74.9 kg [facility] 01-11-2016 12:02-0400 BMI (Body Mass Index) 28.34 kg/m2 [facility] 01-11-2016 12:02-0400 Body Temperature 98.2 [degF] [facility] 01-11-2016 12:02-0400 BP Diastolic 74 mm[Hg] [facility] 01-11-2016 12:02-0400 BP Systolic 126 mm[Hg] [facility] 01-11-2016 12:02-0400 BSA (Body Surface Area) 1.84 m2 [facility] 01-11-2016 12:02-0400 Height 162.56 cm [facility] 01-11-2016 12:02-0400 Pulse (Heart Rate) 69 /min [facility] 01-11-2016 12:02-0400 Pulse Oximetry 97 % [facility] 01-11-2016 12:02-0400 Respiratory Rate 18 /min [facility] 01-11-2016 12:02-0400 Weight 74.9 kg [facility] 12-08-2015 11:37-0400 BMI (Body Mass Index) 28.52 kg/m2 [facility] 12-08-2015 11:37-0400 BMI (Body Mass Index) 28.51 kg/m2 [facility] 12-08-2015 11:37-0400 Body Temperature 98.1 [degF] [facility] 12-08-2015 11:37-0400 BP Diastolic 60 mm[Hg] [facility] 12-08-2015 11:37-0400 BP Systolic 110 mm[Hg] [facility] 12-08-2015 11:37-0400 BSA (Body Surface Area) 1.84 m2 [facility] 12-08-2015 11:37-0400 Height 162.56 cm [facility] 12-08-2015 11:37-0400 Pulse (Heart Rate) 100 /min [facility] 12-08-2015 11:37-0400 Pulse Oximetry 98 % [facility] 12-08-2015 11:37-0400 Respiratory Rate 18 /min [facility] 12-08-2015 11:37-0400 Weight 75.35 kg [facility] 12-08-2015 10:37-0400 BMI (Body Mass Index) 28.52 kg/m2 [facility] 12-08-2015 10:37-0400 BMI (Body Mass Index) 28.51 kg/m2 [facility] 12-08-2015 10:37-0400 Body Temperature 98.1 [degF] [facility] 12-08-2015 10:37-0400 BP Diastolic 60 mm[Hg] [facility] 12-08-2015 10:37-0400 BP Systolic 110 mm[Hg] [facility] 12-08-2015 10:37-0400 BSA (Body Surface Area) 1.84 m2 [facility] 12-08-2015 10:37-0400 Height 162.56 cm [facility] 12-08-2015 10:37-0400 Pulse (Heart Rate) 100 /min [facility] 12-08-2015 10:37-0400 Pulse Oximetry 98 % [facility] 12-08-2015 10:37-0400 Respiratory Rate 18 /min [facility] 12-08-2015 10:37-0400 Weight 75.35 kg [facility] 10-25-2015 11:43-0400 BMI (Body Mass Index) 28.24 kg/m2 [facility] 10-25-2015 11:43-0400 Body Temperature 98.2 [degF] [facility] 10-25-2015 11:43-0400 BP Diastolic 70 mm[Hg] [facility] 10-25-2015 11:43-0400 BP Systolic 110 mm[Hg] [facility] 10-25-2015 11:43-0400 BSA (Body Surface Area) 1.84 m2 [facility] 10-25-2015 11:43-0400 Height 162.56 cm [facility] 10-25-2015 11:43-0400 Pulse (Heart Rate) 55 /min [facility] 10-25-2015 11:43-0400 Pulse Oximetry 99 % [facility] 10-25-2015 11:43-0400 Respiratory Rate 18 /min [facility] 10-25-2015 11:43-0400 Weight 74.62 kg [facility] 10-25-2015 10:43-0400 BMI (Body Mass Index) 28.24 kg/m2 [facility] 10-25-2015 10:43-0400 Body Temperature 98.2 [degF] [facility] 10-25-2015 10:43-0400 BP Diastolic 70 mm[Hg] [facility] 10-25-2015 10:43-0400 BP Systolic 110 mm[Hg] [facility] 10-25-2015 10:43-0400 BSA (Body Surface Area) 1.84 m2 [facility] 10-25-2015 10:43-0400 Height 162.56 cm [facility] 10-25-2015 10:43-0400 Pulse (Heart Rate) 55 /min [facility] 10-25-2015 10:43-0400 Pulse Oximetry 99 % [facility] 10-25-2015 10:43-0400 Respiratory Rate 18 /min [facility] 10-25-2015 10:43-0400 Weight 74.62 kg [facility] 09-22-2015 11:19-0400 BMI (Body Mass Index) 30.22 kg/m2 [facility] [facility] 09-22-2015 11:19-0400 Body Temperature 98.6 [degF] [facility] 09-22-2015 11:19-0400 BP Diastolic 78 mm[Hg] [facility] 09-22-2015 11:19-0400 BP Systolic 132 mm[Hg] [facility] 09-22-2015 11:19-0400 BSA (Body Surface Area) 1.81 m2 [facility] 09-22-2015 11:19-0400 Height 157.48 cm [facility] 09-22-2015 11:19-0400 Pulse (Heart Rate) 86 /min [facility] 09-22-2015 11:19-0400 Pulse Oximetry 98 % [facility] 09-22-2015 11:19-0400 Respiratory Rate 18 /min [facility] 09-22-2015 11:19-0400 Weight 74.96 kg [facility] 09-22-2015 10:19-0400 BMI (Body Mass Index) 30.22 kg/m2 [facility] 09-22-2015 10:19-0400 Body Temperature 98.6 [degF] [facility] 09-22-2015 10:19-0400 BP Diastolic 78 mm[Hg] [facility] 09-22-2015 10:19-0400 BP Systolic 132 mm[Hg] [facility] 09-22-2015 10:19-0400 BSA (Body Surface Area) 1.81 m2 [facility] 09-22-2015 10:19-0400 Height 157.48 cm [facility] 09-22-2015 10:19-0400 Pulse (Heart Rate) 86 /min [facility] 09-22-2015 10:19-0400 Pulse Oximetry 98 % [facility] 09-22-2015 10:19-0400 Respiratory Rate 18 /min [facility] 09-22-2015 10:19-0400 Weight 74.96 kg [facility] 09-08-2015 11:54-0400 BMI (Body Mass Index) 30.04 kg/m2 [facility] 09-08-2015 11:54-0400 BP Diastolic 70 mm[Hg] [facility] 09-08-2015 11:54-0400 BP Systolic 118 mm[Hg] [facility] 09-08-2015 11:54-0400 BSA (Body Surface Area) 1.81 m2 [facility] 09-08-2015 11:54-0400 Height 157.48 cm [facility] 09-08-2015 11:54-0400 Pulse (Heart Rate) 75 /min [facility] 09-08-2015 11:54-0400 Pulse Oximetry 97 % [facility] 09-08-2015 11:54-0400 Respiratory Rate 18 /min [facility] 09-08-2015 11:54-0400 Weight 74.5 kg [facility] 09-08-2015 10:54-0400 BMI (Body Mass Index) 30.04 kg/m2 [facility] 09-08-2015 10:54-0400 BP Diastolic 70 mm[Hg] [facility] 09-08-2015 10:54-0400 BP Systolic 118 mm[Hg] [facility] 09-08-2015 10:54-0400 BSA (Body Surface Area) 1.81 m2 [facility] 09-08-2015 10:54-0400 Height 157.48 cm [facility] 09-08-2015 10:54-0400 Pulse (Heart Rate) 75 /min [facility] 09-08-2015 10:54-0400 Pulse Oximetry 97 % [facility] 09-08-2015 10:54-0406 Respiratory Rate 18 /min Karla Clark [facility] 09-08-2015 10:54-0400 Weight 74.5 kg Karla Clark [facility] Encounters Encounter Date Encounter Type Care Provider Facility Start: 12-20-2023 ambulatory Karla Alexey Amber Facility :[facility] Start: 12-18-2023 Non-patient / Non-visit CHILD CARE SUPERVISOR A french Clark Work Phone: [facility] Work Phone: Start: 12-16-2023 End: 12-24-2023 Evaluation and management of inpatient RODNEY Clark Work Phone: [facility] Work Phone: Start: 11-26-2023 Registered Recurring CHILD CARE SUPERVISOR Gary Clark Work Phone: [facility] Start: 11-18-2023 End: 11-18-2023 ambulatory ALANNAH JAMES Not Available Start: 10-04-2023 End: 10-04-2023 FQHC visit, estab pt Karla Clark COTTON DISPATCHER Work Phone: [facility] Work Phone: Start: 10-04-2023 End: 10-04-2023 General Karla Clark COTTON DISPATCHER Work Phone: [facility] Work Phone: Start: 09-27-2023 End: 09-27-2023 ambulatory YANDEL DANIEL Facility:[facility] Start: 09-27-2023 End: 09-27-2023 Patient encounter procedure Yandel Daniel MD Work Phone: Otolaryngology Comment on above: Nontoxic multinodula r goiter (Primary Dx); Thyroid nodule Start: 09-18-2023 End: 09-18-2023 ambulatory ALANNAH JAMES Not Available Start: 08-28-2023 End: 08-28-2023 ambulatory ALANNAH JAMES Not Available Start: 08-20-2023 End: 08-20-2023 Admission to same day surgery center [facility] [place] Start: 08-20-2023 End: 08-20-2023 ambulatory NON STAFF [facility] Work Phone: Start: 08-16-2023 Non-patient / Non-visit [facility] Work Phone: Start: 08-15-2023 End: 08-20-2023 Evaluation and management of inpatient [facility] [place] [address] Work Phone: Start: 08-14-2023 End: 08-14-2023 ambulatory ALANNAH JAMES Not Available Start: 08-14-2023 End: 08-14-2023 ambulatory JOHAN HOWELL Not Available Start: 08-09-2023 Telephone encounter Yandel mccollum MD Work Phone: [facility] Comment on above: Patient Question Start: 07-16-2023 Bamboo flowsheet Dakota sifuentes MD Work Phone: [facility] Start: 07-16-2023 Bamboo flowsheet Dakota sifuentes MD Work Phone: [facility] Start: 07-16-2023 End: 07-16-2023 Patient encounter procedure Dakota Mack MD Work Phone: [facility] Comment on above: Neoplasm of unspecif ied behavior of bone, soft tissue, and skin (Primary Dx) Start: 07-16-2023 End: 07-16-2023 ambulatory DAKOTA MACK Not Available Start: 06-28-2023 End: 06-28-2023 ambulatory YANDEL DANIEL Facility:[facility] Start: 06-18-2023 End: 06-22-2023 ambulatory YANDEL DANIEL Facility:[facility] Start: 05-30-2023 End: 05-31-2023 ambulatory [facility]ANDEL [facility] Start: 05-30-2023 End: 05-30-2023 ambulatory [facility] Facility[facility] Start: 05-30-2023 Encounter for other preprocedural examination [facility] Start: 05-22-2023 End: 05-22-2023 Patient encounter procedure Karla Clark COTTON DISPATCHER Work Phone: [facility] Work Phone: Start: 05-22-2023 End: 05-22-2023 FQHC visit, estab pt Karla Clark COTTON DISPATCHER Work Phone: [facility] Work Phone: Start: 05-22-2023 End: 05-22-2023 General Karla Clark COTTON DISPATCHER Work Phone: [facility] Work Phone: Start: 04-11-2023 End: 04-12-2023 ambulatory [facility] Facility:[facility] Start: 03-26-2023 End: 03-28-2023 Evaluation and management of inpatient CHILD CARE SUPERVISOR Karla Clark Work Phone: [facility] Work Phone: Start: 03-26-2023 End: 03-28-2023 observation encounter CHILD CARE SUPERVISOR Karla Clark Work Phone: [facility] Work Phone: Start: 03-26-2023 End: 03-28-2023 ambulatory Cecilia Soares Facility:[facility] Start: 03-11-2023 End: 03-15-2023 Evaluation and management of inpatient CHILD CARE SUPERVISOR Karla Clark Work Phone: [facility] Work Phone: Start: 03-11-2023 End: 03-11-2023 ambulatory Zak Juaquin Facility:[facility] Start: 03-11-2023 End: 03-11-2023 Departed Referred CHILD CARE SUPERVISOR Karla Clark Work Phone: [facility] [place] Work Phone: Start: 01-30-2023 End: 01-31-2023 ambulatory SHE WALLS [facility] Start: 12-12-2022 Office outpatient vi sit 15 minutes Emory Adame [facility] Start: 12-12-2022 End: 12-12-2022 ambulatory CHILD CARE SUPERVISOR Karla Clark Work Phone: [facility] Work Phone: Start: 12-12-2022 End: 12-12-2022 Patient encounter procedure CHILD CARE SUPERVISOR Karla Clark Work Phone: [facility] Start: 11-19-2022 End: 02-28-2023 General Karla Clark COTTON DISPATCHER Work Phone: [facility] Work Phone: Start: 11-19-2022 End: 02-28-2023 FQHC visit, estab pt Karla Clark COTTON DISPATCHER Work Phone: [facility] Work Phone: Start: 10-31-2022 Postop follow up vis it related to original px [facility] Adame [facility] Start: 10-31-2022 End: 10-31-2022 ambulatory PHYSICIAN NO [facility] Work Phone: Start: 10-31-2022 End: 10-31-2022 Patient encounter procedure PHYSICIAN NO [facility] Start: 10-31-2022 End: 10-31-2022 ambulatory REKHA MUNOZ Facility: Start: 2022 End: 2022 ambulatory Emory Adame Other [email or web address] Other Start: 2022 Telephone encounter Emory TAYLOR [facility] Start: 10-23-2022 Registered Recurring CHILD CARE SUPERVISORMachelle Clark Work Phone: [facility] [employer] Start: 10-05-2022 End: 10-05-2022 ambulatory Emory Adame Other [facility] [employer] Other Start: 10-05-2022 Telephone encounter Emory TAYLOR [facility] Start: 10-03-2022 Postop follow up vis it related to original px Emory Adame [facility] Start: 10-03-2022 End: 10-03-2022 ambulatory PHYSICIAN NO [facility] [email or web address] Other Start: 10-03-2022 End: 10-03-2022 Patient encounter procedure PHYSICIAN NO [facility] Start: 09-18-2022 End: 09-18-2022 FQHC visit, estab pt Karla Clark COTTON DISPATCHER Work Phone: [facility] Work Phone: Start: 09-18-2022 End: 09-18-2022 General Karla Clark COTTON DISPATCHER Work Phone: [facility] Work Phone: Start: 09-13-2022 End: 09-14-2022 Admission to same day surgery center PHYSICIAN NO [facility] [place] Start: 09-13-2022 End: 09-14-2022 ambulatory PHYSICIAN NO [facility] Work Phone: Start: 09-11-2022 Telephone encounter Emory Schilling [facility] Start: 09-11-2022 End: 09-11-2022 ambulatory CHILD CARE SUPERVISOR Karla Clark Work Phone: [facility] Work Phone: Start: 09-11-2022 End: 09-11-2022 Patient encounter procedure CHILD CARE SUPERVISORMachelle Clark Work Phone: [facility] Work Phone: Start: 09-10-2022 FQHC visit new patient Emory LIM [facility] Start: 09-10-2022 End: 09-10-2022 ambulatory Emory Adame Other [email or web address] Other Start: 09-10-2022 End: 09-10-2022 Patient encounter procedure DO Emory Adame Work Phone: [facility] Start: 09-06-2022 End: 09-06-2022 ambulatory KARLANAVEED CLARK Facility:[facility] Start: 08-27-2022 End: 08-27-2022 General Carolin Short LISWS Work Phone: [facility] Work Phone: Start: 08-27-2022 End: 08-27-2022 Adult health examination Karla Amber COTTON DISPATCHER Work Phone: [facility] Work Phone: Start: 08-27-2022 End: 08-27-2022 FQHC visit, estab pt Karla Clark COTTON DISPATCHER Work Phone: [facility] Work Phone: Start: 08-22-2022 End: 08-22-[address] DOCTOR CHAVEZ Facility:[facility] Start: 08-16-2022 End: 08-17-2022 ambulatory KARLA Alexey [facility] Start: 08-16-2022 End: 08-16-2022 Subsequent hospital visit by physician Karla Clark CHILD CARE SUPERVISOR - COTTON DISPATCHER Work Phone: [facility] Laboratory Comment on above: Cutaneous candidiasi s; Screening for malignant neoplasm of cervix Start: 08-03-2022 End: 08-03-2022 ambulatory REKHA MUNOZ Facility:[facility] Start: 06-18-2022 End: 06-18-2022 FQHC visit, estab pt Karla Clark COTTON DISPATCHER Work Phone: [facility] Work Phone: Start: 03-22-2022 End: 03-22-2022 FQHC visit, estab pt [facility]in Feliz [facility] Work Phone: [facility] Work Phone: Start: 03-20-2022 End: 03-20-2022 FQ visit, estab pt Yin Feliz [facility] Work Phone: [facility] Work Phone: Start: 03-06-2022 End: 03-07-2022 [facility] Start: 03-06-2022 Encounter for other preprocedural examination [facility] Start: 03-06-2022 End: 03-06-2022 Preoperative state [facility] Room [facility] Echocardiograph y Start: 03-06-2022 End: 03-06-2022 Subsequent hospital visit by physician [facility] Echo Room [facility] Echocardiography Comment on above: Pre-operative cleara nce; Abnormal EKG; History of AR (myocardial infarction) Start: 12-20-2021 End: 12-20-2021 FQ visit, estab pt Karla Clark CNP Work Phone: [facility] Work Phone: Start: 11-03-2021 End: 11-03-2021 FQ visit, estab pt Yin Feliz [facility] Work Phone: [facility] Work Phone: Start: 11-03-2021 End: 11-03-2021 FQ visit, estab pt Yin Feliz [facility] Work Phone: [facility] Work Phone: Start: 09-28-2021 End: 11-03-2021 Pre-admission assessment Deepti Britt [facility] Start: 08-01-2021 End: 08-01-2021 Patient encounter status Karla Clark CHILD CARE SUPERVISOR - COTTON DISPATCHER Work Phone: [facility] Laboratory Start: 08-01-2021 End: 08-03-2021 Subsequent hospital visit by physician Frantz Mri Scanner [facility] Laboratory Comment on above: Pre-procedure lab ex am Breast lump on right side at 4 o'clock position Start: 07-28-2021 End: 07-28-2021 FQHC visit, estab pt Karla Clark COTTON DISPATCHER Work Phone: [facility] Work Phone: Start: 05-08-2021 End: 05-08-2021 Adult health examination Karla Amber COTTON DISPATCHER Work Phone: [facility] Work Phone: Start: 05-08-2021 End: 05-08-2021 FQHC visit, estab pt Karla Clark COTTON DISPATCHER Work Phone: [facility] Work Phone: Start: 11-11-2020 End: 11-13-2020 Subsequent hospital visit by physician Frantz Gen Radiologist [facility] Mammography Comment on above: History of breast bi opsy Start: 07-21-2020 End: 07-21-2020 Subsequent hospital visit by physician Karla RANDOLPH Laboratory Start: 07-14-2020 End: 07-14-2020 Subsequent hospital visit by physician Karla RANDOLPH Laboratory Start: 07-14-2020 End: 07-14-2020 Subsequent hospital visit by physician Karla KEY Laboratory Start: 07-08-2020 End: 07-09-2020 ambulatory KARLA CLARK [facility] Start: 07-08-2020 End: 07-08-2020 Subsequent hospital visit by physician Karla BUT[facility]ER AL [facility] Start: 06-30-2020 End: 07-02-2020 Subsequent hospital visit by physician Frantz Lab Drawing Room [facility] Laboratory Comment on above: Arrived Hyperprolactinemia ( HCC) Start: 06-17-2020 End: 06-17-2020 Established patient Karla Amber Work Phone: [facility] Work Phone: Start: 06-08-2020 End: 06-10-2020 Subsequent hospital visit by physician Frantz Gen Radiologist [facility] Ultrasound Comment on above: Abnormal ultrasound of breast; Lesion of breast Start: 06-08-2020 End: 06-10-2020 Subsequent hospital visit by physician Frantz Mammography [facility] Mammography Comment on above: Abnormal mammogram Start: 06-06-2020 End: 06-06-2020 Established patient Karla Clark Work Phone: [facility] Work Phone: Start: 06-06-2020 End: 06-06-2020 Subsequent hospital visit by physician Karla RANDOLPH Laboratory Start: 05-06-2020 End: 05-06-2020 Patient encounter procedure Karla Floresen Work Phone: [facility] Work Phone: Start: 04-04-2020 End: 04-06-2020 Subsequent hospital visit by physician Frantz Ultrasound Room [facility] Ultrasound Comment on above: Abnormal mammogram Start: 03-31-2020 End: 04-01-2020 ambulatory KARLA Blackburn [facility] Start: 03-31-2020 End: 03-31-2020 Subsequent hospital visit by physician Karla HTORNTON COMM [facility] Start: 03-31-2020 End: 03-31-2020 Established patient Karla Clark Work Phone: [facility] Work Phone: Start: 03-14-2020 End: 03-14-2020 Nursing evaluation of patient and report Karla Clark Work Phone: [facility] Work Phone: Start: 03-10-2020 End: 03-11-2020 ambulatory KARLA CLARK [facility] Start: 03-10-2020 End: 03-10-2020 Subsequent hospital visit by physician Karla THORNTON COMM [facility] Start: 03-04-2020 End: 03-04-2020 Patient encounter procedure Karla Clark Work Phone: [facility] Work Phone: Start: 02-26-2020 End: 02-26-2020 Patient encounter procedure Karla Clark Work Phone: [facility] Work Phone: Start: 02-26-2020 End: 02-26-2020 Established patient Karla Clark Work Phone: [facility] Work Phone: Start: 11-19-2019 End: 11-19-2019 Patient encounter procedure Carolin Oneill Work Phone: [facility] Work Phone: Start: 11-19-2019 End: 11-19-2019 Telemedicine consultation with patient Karla Clark Work Phone: [facility] Work Phone: Start: 08-31-2019 End: 08-31-2019 Telemedicine consultation with patient Karla Clark Work Phone: [facility] Work Phone: Start: 08-03-2019 End: 08-03-2019 [facility] Start: 07-23-2019 End: 07-23-2019 Established patient Karla Clark Work Phone: [facility] Work Phone: Start: 06-05-2019 End: 06-05-2019 Patient encounter procedure Karla Clark Work Phone: [facility] Work Phone: Start: 05-28-2019 End: 05-28-2019 Patient encounter procedure Telma Connor Work Phone: [facility] Work Phone: Start: 04-23-2019 End: 04-23-2019 ambulatory Karla Clark Work Phone: [facility] Work Phone: Start: 04-15-2019 End: 04-15-2019 Established patient Brandy Serranoer Work Phone: [facility] Work Phone: Start: 04-10-2019 End: 04-12-2019 Subsequent hospital visit by physician Frantz Gen Radiologist [facility] Ultrasound Comment on above: Abnormal mammogram o f left breast Start: 03-11-2019 End: 03-13-2019 Subsequent hospital visit by physician Frantz Ultrasound Room [facility] Ultrasound Comment on above: Duct ectasia of jr st, left Start: 03-05-2019 End: 03-05-2019 Established patient Karla Clark Work Phone: [facility] Work Phone: Start: 02-16-2019 End: 02-18-2019 Subsequent hospital visit by physician Frantz Xr Dr Room 2 [facility] Radiology Comment on above: Right foot pain Start: 12-22-2018 End: 12-22-2018 Established patient Karla Clark Work Phone: [facility] Work Phone: Start: 11-11-2018 End: 11-11-2018 Patient encounter procedure Karla Clark Work Phone: [facility] Work Phone: Start: 11-06-2018 End: 11-06-2018 Established patient Karla Clark Work Phone: [facility] Work Phone: Start: 09-11-2018 End: 09-11-2018 Established patient Karla Calrk Work Phone: [facility] Work Phone: Start: 09-11-2018 End: 09-11-2018 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 Karla Clark COTTON DISPATCHER Work Phone: [facility] Work Phone: Start: 09-04-2018 End: 09-04-2018 Established patient Karla Clark Work Phone: [facility] Work Phone: Start: 09-04-2018 End: 09-04-2018 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 Karla Clark COTTON DISPATCHER Work Phone: [facility] Work Phone: Start: 07-31-2018 End: 07-31-2018 Established patient Karla Clark Work Phone: [facility] Work Phone: Start: 05-08-2018 Office outpatient vi sit 15 minutes Karla Clark Other [facility] Start: 05-08-2018 End: 05-08-2018 Patient encounter procedure Karla Clark CNP Work Phone: [facility] Work Phone: Start: 03-20-2018 End: 03-20-2018 Patient encounter procedure Conversion Provider Work Phone: [facility] Work Phone: Start: 03-20-2018 Office outpatient vi sit 5 minutes Karla Clark Other [facility] Start: 02-13-2018 Medical Karla Clark Other [facility] Start: 02-13-2018 End: 02-13-2018 Office outpatient visit 5 minutes Karla Clark Other [facility] Start: 02-13-2018 Evaluation and manag ement of established outpatient in office or other outpatient facility Karla Clark [facility] Start: 02-11-2018 Medical Karla Clark Other [facility] Start: 02-11-2018 End: 02-11-2018 Office outpatient visit 5 minutes Karla Amber Other [facility] Start: 02-11-2018 End: 02-11-2018 Patient encounter procedure Karla Clark CNP Work Phone: [facility] Work Phone: Start: 12-19-2017 End: 12-19-2017 Office outpatient visit 15 minutes Karla Clark Other [facility] Start: 12-19-2017 End: 12-19-2017 Patient encounter procedure Karla Clark CNP Work Phone: [facility] Work Phone: Start: 10-08-2017 End: 10-08-2017 Patient encounter procedure Karla Clark CNP Work Phone: [facility] Work Phone: Start: 10-08-2017 End: 10-08-2017 Office outpatient visit 15 minutes Karla Clark Other [facility] Start: 09-17-2017 End: 09-17-2017 Patient encounter procedure Karla Clark CNP Work Phone: [facility] Work Phone: Start: 09-17-2017 Laboratory examinati on, unspecified Karla Clark [facility] Start: 09-17-2017 Physical examination Karla Quinones [facility] Start: 09-17-2017 Comprehensive metabo lic panel Kralanaveed Clark [facility] Start: 09-17-2017 End: 09-17-2017 Office outpatient visit 15 minutes Karla Clark Other [facility] Start: 07-30-2017 End: 07-30-2017 Periodic preventive med est patient 40-64yrs Karla Clark Other [facility] Start: 05-14-2017 End: 05-14-2017 Office outpatient visit 15 minutes Karla Clark Other [facility] Start: 04-18-2017 End: 04-18-2017 Medical Karla Clark Other [facility] Start: 03-07-2017 End: 03-07-2017 Evaluation and management of established outpatient in office or other outpatient facility Karla Clark [facility] Start: 03-07-2017 End: 03-07-2017 TB Read Karla Clark Other [facility] Start: 03-05-2017 Physical examination Karla Quinones [facility] Start: 03-05-2017 End: 03-05-2017 Office outpatient visit 15 minutes Karla Clark Other [facility] Start: 03-05-2017 Tobacco use cessatio n intensive >10 minutes Karlanaveed Clark [facility] Start: 01-01-2017 Ct head/brain w/o & w/contrast material Karlanaveed Clark [facility] Start: 01-01-2017 End: 01-01-2017 Office outpatient visit 15 minutes Karla Clark Other [facility] Start: 12-06-2016 End: 12-06-2016 Office outpatient visit 15 minutes Karla Clark Other [facility] Start: 11-06-2016 End: 11-06-2016 Office outpatient visit 15 minutes Karla Clark Other [facility] Start: 11-06-2016 Urinalysis qual/semi quant except immunoassays Karlanaveed Clark [facility] Start: 09-27-2016 End: 09-27-2016 Office outpatient visit 15 minutes Karla Clark Other [facility] Start: 08-21-2016 End: 08-21-2016 Office outpatient visit 15 minutes Karla Clark Other [facility] Start: 06-26-2016 End: 06-26-2016 Office outpatient visit 15 minutes Karla Clark Other [facility] Start: 06-26-2016 Tobacco use cessatio n intermediate 3-10 minutes Karlanaveed Clark [facility] Start: 06-12-2016 End: 06-12-2016 Office outpatient visit 15 minutes Karla Clark Other [facility] Start: 05-22-2016 End: 05-22-2016 Office outpatient visit 25 minutes Karla Clark Other [facility] Start: 04-10-2016 End: 04-10-2016 Office outpatient visit 15 minutes Karla Clark Other [facility] Start: 03-20-2016 Tobacco use cessatio n intermediate 3-10 minutes [facility] Start: 03-20-2016 End: 03-20-2016 Office outpatient visit 15 minutes Karla Clark Other [facility] Start: 03-09-2016 Evaluation and manag ement of established outpatient in office or other outpatient facility [facility] Start: 03-09-2016 End: 03-09-2016 Office outpatient visit 5 minutes Karla Amber Other [facility] Start: 03-06-2016 End: 03-06-2016 Office outpatient visit 15 minutes Karlanaveed Clark Other [facility] Start: 02-21-2016 End: 02-21-2016 Office outpatient visit 15 minutes Karlanaveed Clark Other [facility] Start: 01-12-2016 Tobacco use cessatio n intermediate 3-10 minutes [facility] Start: 01-11-2016 End: 01-11-2016 Office outpatient visit 15 minutes Karla Clark Other [facility] Start: 12-08-2015 End: 12-08-2015 Office outpatient visit 15 minutes Karlanaveed Clark Other [facility] Start: 10-25-2015 Culture bct isol&prs mptv id isolate ea urine [facility] Start: 10-25-2015 End: 10-25-2015 Office outpatient visit 15 minutes Karla Clark Other [facility] Start: 09-22-2015 End: 09-22-2015 Office outpatient visit 15 minutes Karla Clark Other [facility] Start: 09-08-2015 Iadna chlamydia trachomatis amplified probe tq Karlanaveed Clark [facility] Start: 09-08-2015 End: 09-08-2015 Office outpatient visit 15 minutes Karla Clark Other [facility] Procedures Date Procedure Procedure Detail Performing Clinician Start: 10-04-2023 Behav assmt w/score & docd/stand instrument Karla Clark CNP Work Phone: Start: 10-04-2023 Current tobacco smoker Karla Clark COTTON DISPATCHER Work Phone: Start: 10-04-2023 FQHC visit, estab pt Karla Clark CNP Work Phone: Start: 10-04-2023 Most recent diastolic blood pressure 80-89 mm hg Karla Clark CNP Work Phone: Start: 10-04-2023 Most recent systolic blood press 130-139mm hg Karla Clark CNP Work Phone: Start: 10-04-2023 Pneumococcal Prevnar 20 Karla Clark CNP Work Phone: Start: 10-04-2023 Pt scrnd tobacco use rcvd tobacco cessation talk Karla Clark CNP Work Phone: Start: 08-20-2023 Excision of lesion of cheek Start: 07-16-2023 SKIN / NAIL BIOPSY Dakota Mack MD Work Phone: Start: 05-22-2023 Current tobacco smoker Karla Clark COTTON DISPATCHER Work Phone: Start: 05-22-2023 FQHC visit, estab pt Karla Amber CROOKS Work Phone: Start: 05-22-2023 Most recent diastolic blood pressure 80-89 mm hg Karla Clark COTTON DISPATCHER Work Phone: Start: 05-22-2023 Most recent systolic blood press 130-139mm hg Karla Clark COTTON DISPATCHER Work Phone: Start: 05-22-2023 Pt scrnd tobacco use rcvd tobacco cessation talk Karla Clark COTTON DISPATCHER Work Phone: Start: 03-26-2023 CT of abdomen and pelvis without contrast CHILD CARE SUPERVISOR Karla Clark Work Phone: Start: 03-14-2023 Computed tomography of abdomen and pelvis with contrast CHILD CARE SUPERVISOR Karla Clark Work Phone: Start: 03-12-2023 Urine culture CHILD CARE SUPERVISORMachelle Clark Work Phone: Start: 02-28-2023 Asthma Control Test/Baseline Evaluation Lina Penix COTTON DISPATCHER Work Phone: Start: 02-28-2023 Current tobacco smoker Lina Penix COTTON DISPATCHER Work Phone: Start: 02-28-2023 FQHC visit, estab pt Lina Penix COTTON DISPATCHER Work Phone: Start: 02-28-2023 Most recent diastolic blood pressure < 80 mm hg Lina Penix COTTON DISPATCHER Work Phone: Start: 02-28-2023 Most recent systolic blood pressure <130 mm hg Lina Penix COTTON DISPATCHER Work Phone: Start: 02-28-2023 Pt scrnd tobacco use rcvd tobacco cessation talk Lina Penix COTTON DISPATCHER Work Phone: Start: 02-28-2023 Screening for malignant neoplasm of breast Visit For: Screening Exam Malignant Neoplasm Breast Aaron Garcia Penix COTTON DISPATCHER Work Phone: Start: 12-12-2022 Plain X-ray of right shoulder RODNEY Clark Work Phone: Start: 11-19-2022 Current tobacco smoker Karla Clark COTTON DISPATCHER Work Phone: Start: 11-19-2022 FQHC visit, estab pt Karla Clark COTTON DISPATCHER Work Phone: Start: 11-19-2022 Most recent diastolic blood pressure < 80 mm hg Karla Clark COTTON DISPATCHER Work Phone: Start: 11-19-2022 Most recent systolic blood press 130-139mm hg Karla Clark COTTON DISPATCHER Work Phone: Start: 10-31-2022 Plain X-ray of right shoulder PHYSICIAN NO FAMILY Start: 10-03-2022 Plain X-ray of right shoulder PHYSICIAN NO FAMILY Start: 09-21-2022 Surgical procedure Karla Clark COTTON DISPATCHER Work Phone: Start: 09-18-2022 Current tobacco smoker Karla Clark COTTON DISPATCHER Work Phone: Start: 09-18-2022 FQ visit, estab pt Karla Clark COTTON DISPATCHER Work Phone: Start: 09-18-2022 Most recent diastolic blood pressure < 80 mm hg Karla Clark COTTON DISPATCHER Work Phone: Start: 09-18-2022 Most recent systolic blood pres>/equal 140 mm hg Karla Clark COTTON DISPATCHER Work Phone: Start: 09-18-2022 Pt scrnd tobacco use rcvd tobacco cessation talk Karla Clark CNP Work Phone: Start: 09-13-2022 Plain X-ray of right shoulder PHYSICIAN NO FAMILY Start: 09-13-2022 Plain X-ray of right shoulder PHYSICIAN NO FAMILY Start: 09-13-2022 Open reduction of fracture with internal fixation PHYSICIAN NO FAMILY Start: 09-10-2022 Plain X-ray of right shoulder DO Emory Adame Work Phone: Start: 08-27-2022 Current tobacco smoker Karla Clark COTTON DISPATCHER Work Phone: Start: 08-27-2022 [facility] visit, estab pt Karla Clark COTTON DISPATCHER Work Phone: Start: 08-27-2022 Most recent diastolic blood pressure < 80 mm hg Karla Clark COTTON DISPATCHER Work Phone: Start: 08-27-2022 Most recent systolic blood pressure <130 mm hg Karla Clark COTTON DISPATCHER Work Phone: Start: 06-18-2022 Current tobacco smoker Karla Clark CNP Work Phone: Start: 06-18-2022 FQHC visit, estab pt Karla Clark CNP Work Phone: Start: 06-18-2022 Gluc bld gluc [...] Karla Clark CNP Work Phone: Start: 03-20-2022 FQHC visit, MH estab pt Yin alexander [employer] Work Phone: Start: 03-20-2022 Most recent diastolic blood pressure 80-89 mm hg Karla Clark CNP Work Phone: Start: 03-20-2022 Most recent systolic blood pressure <130 mm hg Karla Clark CNP Work Phone: Start: 03-20-2022 Psychotherapy w/patient 30 minutes Yin Feliz [employer] Work Phone: Start: 12-20-2021 Antibody hiv-1&hiv-2 single [...] use rcvd tobacco cessation talk Karla Clark CNP Work Phone: Start: 11-03-2021 Psychotherapy w/patient 30 minutes Yin Feliz [facility] Work Phone: Start: 08-10-2021 Microscopic observation [Identifier] in Cervix by Cyto stain [facility] Start: 08-01-2021 Mri breast without&with contrast w/cad bilateral She Spencer CHILD CARE SUPERVISOR - CNM Work Phone: Start: 08-01-2021 Creatinine blood She Spencer CHILD CARE SUPERVISOR - CNM Work Phone: Start: 07-28-2021 Pt scrnd tobacco use rcvd tobacco cessation talk Karla Clark CNP Work Phone: Start: 05-08-2021 Blood occult fecal hgb deter ia qual feces 1-3 Karla Clark CNP Work Phone: Start: 05-08-2021 Most recent diastolic blood pressure < 80 mm hg Karla Clark CNP Work Phone: Start: 05-08-2021 Most recent systolic blood press 130-139mm hg Karla Clark CNP Work Phone: Start: 11-25-2020 Lipid 1996 panel - Serum or Plasma Yandel Daniel MD Work Phone: Start: 11-11-2020 Diagnostic mammography computer-aided detcj bi She Spencer CHILD CARE SUPERVISOR - CNM Work Phone: Start: 07-21-2020 Drug screen quantitative lithium Pinky Bakies Work Phone: Start: 07-14-2020 Drug screen quantitative lithium Pinky Bakies Work Phone: Start: 07-14-2020 Lipid panel Lolis Mccormick Work Phone: Start: 07-08-2020 Blood count complete auto&auto difrntl wbc Karla Clark Work Phone: Start: 07-08-2020 Comprehensive metabolic panel Karla Clark Work Phone: Start: 07-08-2020 Lipid panel Karla [...] Phone: Start: 06-06-2020 Assay of prolactin Rekha Munoz Work Phone: Start: 05-06-2020 Current tobacco smoker Karla Clark Work Phone: Start: 05-06-2020 Diast bp <80 mm hg Karla Clark Work Phone: Start: 05-06-2020 Hg a1c level lt 7.0% Karla Clark Work Phone: Start: 05-06-2020 Iaad ia hiv-1 ag w/hiv-1 & hiv-2 antbdy single Karla Clark Work Phone: Start: 05-06-2020 Pt tobacco screen rcvd tlk Karla Amber Work Phone: Start: 05-06-2020 Spmtry w/vc expiratory [...] Work Phone: Start: 08-03-2019 Lipid panel Rekha Munoz Work Phone: Start: 07-23-2019 Diast bp [...] 04-15-2019 Diast bp <80 mm hg Brandy Serranoer Work Phone: Start: 04-15-2019 Syst bp lt 130 mm hg Brandy Warren Work Phone: Start: 04-15-2019 Therapeutic prophylactic/dx injection subq/im Brandy Warren Work Phone: Start: 04-10-2019 Us breast uni [...] Kirit Garsia Work Phone: Start: 11-12-2018 Hysterectomy Karla Clark Start: 11-11-2018 Hysterectomy Karla Clark Start: 11-11-2018 Total abdominal hysterect w/wo rmvl [...] Diast bp >/= 90 mm hg Karla Clark Work Phone: Start: 09-04-2018 Syst bp >/= 140 mm hg Karla Clark Work Phone: Start: 07-31-2018 ABNORMAL ELECTROCARDIOGRAM Karla Clark CNP Work Phone: Start: 07-31-2018 ASTHMA Karla Clark COTTON DISPATCHER Work Phone: Start: 07-31-2018 BIPOLAR DISORDER NOS Karla Clark COTTON DISPATCHER Work Phone: Start: 07-31-2018 CARDIOVASCULAR DISORDERS Karla Clark CN P Work Phone: Start: 07-31-2018 DEPRESSION Karla Clark COTTON DISPATCHER Work Phone: Start: 07-31-2018 PSYCHIATRIC DISORDERS Karla Clark COTTON DISPATCHER Work Phone: Start: 07-31-2018 RESPIRATORY DISORDERS Karla Clark COTTON DISPATCHER Work Phone: Start: 07-31-2018 Urnls dip stick/tablet rgnt non-auto w/o micrscp Karla Clark Work Phone: Start: 02-28-2018 Colorectal Screening Results in Chart Karla Amber Start: 02-11-2018 Skin test tuberculosis intradermal Karla Clark Start: 11-19-2017 Screening mammography bi 2-view breast inc cad Karla Amber Start: 09-17-2017 Assay of free thyroxine Karla Clark Start: 09-17-2017 Assay of thyroid stimulating hormone tsh Karla Clark Start: 09-17-2017 Blood count complete auto&auto difrntl wbc Karla Amber Start: 09-17-2017 End: 09-17-2017 Comprehensive metabolic panel [...] Clark Start: 07-31-2016 Blood count complete automated Karlanaveed Clark Start: 07-31-2016 Comprehensive metabolic panel Karla Clark Start: 07-31-2016 Hemoglobin glycosylated a1c Karla Clark Start: 07-31-2016 Lipid panel Karla Clark Start: 05-15-2016 Neurology. Karla Clark Start: 01-11-2016 PHQ9 Administered Karla Clark Start: 01-11-2016 SBIRT- Full Screen *POSITIVE* Referred to Provider Karla Clark Start: 12-08-2015 End: 12-08-2015 Urnls dip stick/tablet rgnt non-auto w/o micrscp Karla Clark Start: 10-25-2015 End: 10-25-2015 Culture bct isol&prsmptv id isolate ea urine Karla Clark Start: 10-25-2015 End: 10-25-2015 Urnls dip stick/tablet rgnt non-auto w/o micrscp Karla Clark Start: 09-22-2015 Pap not indicated Karla Clark Start: 09-08-2015 Assay of free thyroxine Karla Clark Start: 09-08-2015 Assay of thyroid stimulating hormone tsh Karla Clark Start: 09-08-2015 Colorectal Screening Results in Chart Karla Clark Start: 09-08-2015 Glucose quantitative blood xcpt reagent strip Karla Clark Start: 09-08-2015 Hemoglobin glycosylated a1c Karla Clark Start: 09-08-2015 End: 09-08-2015 Iadna chlamydia trachomatis amplified probe tq Karla Clark Start: 09-08-2015 Iadna neisseria gonorrhoeae amplified probe tq Karla Clark Start: 09-08-2015 Lipid panel Karla Clark Start: 09-08-2015 Obtain Mammogram Results Karla Clark Start: 09-08-2015 End: 09-08-2015 HIV SCREENING *in-house* Karla Clark Start: 09-08-2015 End: 09-08-2015 Peak expiratory flow rate (p Karla Mccray n Hysterectomy Deepti Britt Ligation of fallopian tube H sukhwinder Britt Plan of Treatment Date Care Activity Detail Author Start: 12-28-2027 DTaP/Tdap/Td vaccine (2 - Td or Tdap) DTaP/Tdap/Td vaccine (2 - Td or Tdap) [facility] Start: 12-28-2027 DTaP/Tdap/Td vaccine (3 - Td or Tdap) DTaP/Tdap/Td vaccine (3 - Td or Tdap) [facility] Start: 12-28-2027 DTaP/Tdap/Td vaccine (3 - Td) DTaP/Tdap/Td vaccine (3 - Td) [place] Start: 12-28-2027 Urine microalbumin profile DTaP,Tdap,Td Vaccine (3 - Td or Tdap) [facility] Start: 06-20-2026 Diabetes Screening Diabetes Screening [facility] Start: 11-25-2025 Lipid panel [facility] Start: 07-14-2025 Lipid panel Lipid screen [facility] Start: 07-08-2025 Lipid panel Lipid screen [facility] Work Phone: Start: 03-10-2025 Lipid panel Lipid screen [place] Start: 08-10-2024 Screening for malignant neoplasm of cervix [facility] Start: 08-02-2024 Lipid panel Lipid screen [place] Start: 06-21-2024 Creatinine measurement Serum Creatinine [facility] Start: 06-20-2024 Complete blood count Hemoglobin/Hematocrit [facility] Start: 05-30-2024 BP Controlled (<130/80) BP Controlled (<130/80) [facility] in Start: 04-06-2024 FQHC visit, [facility] pt Medical Established Patient [facility] Work Phone: Start: 02-02-2024 Influenza vaccination Influenza Vaccine (Season Ended) [facility] Start: 12-24-2023 [facility] Start: 11-15-2023 Lipid screen Lipid screen [place], [place] Start: 11-15-2023 Physical Therapy [facility] Work Phone: Comment on above: Note: Please make a referral to: Start: 11-03-2023 Cologuard [facility] Start: 10-04-2023 FQHC visit, [facility] pt Medical Established Patient [facility] Work Phone: Start: 10-04-2023 End: 10-04-2023 Patient education based on identified need [facility] Start: 08-27-2023 End: 08-27-2023 Patient encounter procedure 08/27/2023 Office Visit Obstetrics and Gynecology She Spencer, CHILD CARE SUPERVISOR - CNM [address] [facility] [address] [place] [address] [facility] Start: 08-20-2023 Excision of lesion of cheek OR Cheek Lesion Exc W/Flap Recon (Not Applicable) [facility] Start: 08-20-2023 End: 08-20-2023 [facility] Start: 08-20-2023 [facility] Start: 08-15-2023 Hospital admission [facility] Start: 08-15-2023 [facility] Start: 07-16-2023 End: 07-16-2023 Patient encounter procedure 07/16/2023 1:20 PM EST Office Visit [facility] [address] [place] [address] Dakota Mack MD [address] [place] [address] Arrived [facility] Comment on above: Arrived Start: 07-11-2023 End: 07-11-2023 Patient encounter procedure 07/11/2023 Office Visit Cardiology Juju Irby PA-C [address] [place] [address] [facility] Start: 06-03-2023 Advance Directive Discussion Advance Directive Discussion [facility] Start: 06-03-2023 Behavioral Health Screening Behavioral Health Screening [facility] Start: 06-03-2023 Depression Assessment Depression Assessment [facility] Start: 05-23-2023 FQHC visit, estab pt Medical Established Patient [facility] Work Phone: Start: 05-22-2023 Dermatology [facility] Work Phone: Comment on above: Note: Please make a referral to: anna lima or hillary Start: 05-22-2023 End: 05-22-2023 Patient education based on identified need [facility] Start: 04-20-2023 Urinalysis [facility] Start: 03-30-2023 Mammography Mammogram - Screening ([id number]) [facility] Start: 03-28-2023 FQHC visit, estab pt Medical Established Patient [facility] Work Phone: Start: 03-28-2023 [facility] Start: 03-26-2023 Urine culture Urine Culture [facility] Start: 03-26-2023 Referral to clinical library aide [facility] Start: 03-26-2023 Hospital admission [facility] Start: 03-15-2023 [facility] Start: 03-13-2023 Referral to clinical library aide [facility] Start: 03-12-2023 Hospital admission [facility] Start: 03-12-2023 [facility] Start: 03-01-2023 FQHC visit, estab pt Medical Established Patient [facility] Work Phone: Start: 02-28-2023 FQHC visit, estab pt Medical Established Patient [facility] Work Phone: Start: 02-28-2023 End: 02-28-2023 Patient education based on identified need [facility] Start: 02-01-2023 Covid-19 Vaccine () Covid-19 Vaccine () [facility] Start: 11-19-2022 End: 11-19-2022 Patient education based on identified need [facility] Start: 11-13-2022 FQHC visit, estab pt Medical Established Patient [facility] Work Phone: Start: 09-18-2022 FQHC visit, estab pt Medical Established Patient [facility] Work Phone: Start: 09-18-2022 End: 09-18-2022 Patient education based on identified need [facility] Start: 09-13-2022 [facility] Start: 09-01-2022 CBC W Auto Differential panel - Blood [facility] Start: 09-01-2022 Lipid 1996 panel - Serum or Plasma LIPID PROFILE [facility] Start: 08-27-2022 End: 08-27-2022 Patient education based on identified need [facility] Start: 08-27-2022 End: 08-27-2022 Provider instructions for treatment Intervention and counseling on cessation of tobacco use, 3-10 minutes Discussed medication and nicotine replacement for tobacco cessation [facility] Start: 08-16-2022 End: 08-16-2022 Patient encounter procedure 08/16/2022 Office Visit Obstetrics and Gynecology She Spencer, CHILD CARE SUPERVISOR - CNM [address] [facility] [address] [place] [address] [facility] Start: 07-04-2022 End: 07-04-2022 Patient encounter procedure 07/04/2022 Office Visit Cardiology Juju Irby PA-C [address] [place] [address] [facility] Start: 06-26-2022 FQHC visit, estab pt Medical Established Patient [facility] Work Phone: Start: 06-18-2022 End: 06-18-2022 Patient education based on identified need [facility] Start: 05-08-2022 Screening for malignant neoplasm of colon [facility] Start: 03-20-2022 End: 03-20-2022 Patient education based on identified need [facility] Start: 01-10-2022 Annual Wellness Visit (AWV) Annual Wellness Visit (AWV) [facility] Start: 01-01-2022 Influenza vaccination Flu vaccine (#1) [facility] Start: 12-20-2021 End: 12-20-2021 Patient education based on identified need [facility] Start: 12-15-2021 FQHC visit, estab pt Medical Established Patient [facility] Work Phone: Start: 11-11-2021 Screening for malignant neoplasm of breast [facility] Start: 11-03-2021 Cardiology [facility] Work Phone: Comment on above: Note: Please make a referral to: Start: 11-03-2021 End: 11-03-2021 Patient education based on identified need [facility] Start: 2021 Screening for osteoporosis Bone Density Screening [facility] Start: 10-10-2021 COVID-19 Vaccine (4 - Booster for Moderna series) COVID-19 Vaccine (4 - Booster for Moderna series) [facility] Start: 08-15-2021 End: 08-15-2021 Patient encounter procedure 08/15/2021 Office Visit Obstetrics and Gynecology She Spencer, RODNEY - CNM [address] [facility] [address] [facility] [place] [address] [facility] Start: 08-14-2021 CBC W Auto Differential panel - Blood [facility] Start: 08-10-2021 End: 08-10-2021 Patient encounter procedure 08/10/2021 Office Visit Obstetrics and Gynecology She Spencer, RODNEY - ADAM [address] [facility] [address] [facility] [place] [address] [facility] Start: 08-07-2021 COVID-19 Vaccine (4 - Booster for Moderna series) COVID-19 Vaccine (4 - Booster for Moderna series) [facility] Start: 07-28-2021 ENT [facility] Work Phone: Comment on above: Note: Please make a referral to: aliyah GUPTA Start: 07-28-2021 End: 07-28-2021 Patient education based on identified need [facility] Start: 07-28-2021 End: 07-28-2021 Provider instructions for treatment Intervention and counseling on cessation of tobacco use, 3-10 minutes Discussed medication and nicotine replacement for tobacco cessation [facility] Start: 07-03-2021 COVID-19 Vaccine (2 - Pfizer 3-dose series) COVID-19 Vaccine (2 - Pfizer 3-dose series) [facility] Start: 06-08-2021 Screening for malignant neoplasm of breast Breast cancer screen [place], [place] Start: 05-15-2021 CBC W Auto Differential panel - Blood [facility] Start: 05-15-2021 Lipid 1996 panel - Serum or Plasma LIPID PROFILE [facility] Start: 05-08-2021 End: 05-08-2021 Patient education based on identified need [facility] Start: 05-01-2021 End: 05-01-2021 Patient encounter procedure 05/01/2021 Office Visit Neurology Bhupinder Iniguez MD [address] [place] [address] [facility] NE[facility] Start: 04-04-2021 Screening for malignant neoplasm of breast Breast cancer screen [place], [place] Start: 03-31-2021 Hemoglobin A1c measurement A1C test (Diabetic or Prediabetic) [facility] Start: 03-31-2021 Pneumococcal 65+ years Vaccine (2 - PPSV23 if available, else PCV20) Pneumococcal 65+ years Vaccine (2 - PPSV23 if available, else PCV20) [facility] Start: 03-31-2021 Pneumococcal 65+ years Vaccine (2 - PPSV23 or PCV20) Pneumococcal 65+ years Vaccine (2 - PPSV23 or PCV20) [facility] Start: 02-01-2021 Influenza vaccination Flu vaccine (#1) [facility] Start: 01-29-2021 Cervical cancer screen Cervical cancer screen [place], [place] Start: 01-29-2021 Screening for malignant neoplasm of cervix Cervical cancer screen [place], [place] Start: 10-17-2020 End: 10-17-2020 Office Visit 10/17/2020 Office Visit Neurology Bhupinder Iniguez MD [address] [place] [address] [facility] Start: 08-11-2020 End: 08-11-2020 Office Visit 08/11/2020 Office Visit Obstetrics and Gynecology She Spencer, RODNEY - CNAlexey [address] [facility] [address] [place] [address] [facility] Start: 07-17-2020 [facility] Work Phone: Start: 07-12-2020 End: 07-12-2020 Office Visit 07/12/2020 Office Visit General Surgery iBlly Ojeda MD [address] [facility] [address] [place] [address] [facility] GENERAL SURGERY [facility] Start: 07-07-2020 CBC W Auto Differential panel - Blood [facility] Start: 07-07-2020 Lipid 1996 panel - Serum or Plasma LIPID PROFILE [facility] Start: 06-29-2020 BUN + CREATININE [facility] Start: 06-24-2020 [facility] Work Phone: Start: 06-17-2020 Nephrology [facility] Work Phone: Comment on above: Note: Please make a referral to: Start: 06-08-2020 End: 06-08-2020 Appointment 06/08/2020 Appointment Radiology Radiologist, [facility] Ultrasound Start: 06-06-2020 End: 06-06-2020 Patient education based on identified need [facility] Start: 06-06-2020 Medical Established Patient [facility] Work Phone: Start: 05-26-2020 Pneumococcal Vaccine: 65+ (2 of 2 - PPSV23 or PCV20) Pneumococcal Vaccine: 65+ (2 of 2 - PPSV23 or PCV20) [facility] Start: 05-06-2020 End: 05-06-2020 Patient education based on identified need [facility] Start: 05-06-2020 End: 05-06-2020 Provider instructions for treatment Intervention and counseling on cessation of tobacco use, 3-10 minutes [facility] Start: 05-06-2020 [facility] Work Phone: Start: 04-18-2020 End: 04-18-2020 Office Visit 04/18/2020 Office Visit Neurology Bhupinder Iniguez MD [address] [place] [address] [facility] NE[facility] of [facility] Start: 04-07-2020 [facility] Work Phone: Start: 04-04-2020 End: 04-04-2020 Appointment [facility] Mammography Start: 03-31-2020 End: 03-31-2020 Patient education based on identified need [facility] Start: 03-04-2020 Lipid 1996 panel [facility] Work Phone: Start: 02-26-2020 Breast cancer screen Breast cancer screen [place], [place] Start: 02-26-2020 Screening for malignant neoplasm of breast Breast cancer screen [place] Start: 02-26-2020 End: 02-26-2020 Patient education based on identified need [facility] Start: 02-07-2020 Colon Cancer Screen FIT/FOBT Colon Cancer Screen FIT/FOBT [place] Start: 02-07-2020 Screening for malignant neoplasm of colon [facility] Start: 02-02-2020 Influenza vaccination Flu vaccine (#1) [place] Start: 01-30-2020 A1C test (Diabetic or Prediabetic) A1C test (Diabetic or Prediabetic) [place] Comment on above: Postponed from 08/10/2017 (Not Indicated ) Start: 01-30-2020 Hepatitis C screen Hepatitis C screen [place], [place] Comment on above: Postponed from 1956 (Patient Refus ed) Start: 01-30-2020 HIV screen HIV screen [place], [place] Comment on above: Postponed from 10/31/1971 (Patient Refus ed) Start: 01-30-2020 Pneumococcal 0-64 years Vaccine (1 of 1 - PPSV23) Pneumococcal 0-64 years Vaccine (1 of 1 - PPSV23) [facility] [place] Comment on above: Postponed from 1962 (Insurance / F inancial) Start: 11-26-2019 Lipid 1996 panel [facility] Work Phone: Start: 11-20-2019 Medical Established Patient [facility] Work Phone: Start: 11-03-2019 End: 11-03-2019 Office Visit 11/03/2019 Office Visit General Surgery Billy Ojeda MD [address] [place] [address] [facility] GENERAL SURGERY Start: 09-24-2019 End: 09-24-2019 Office Visit 09/24/2019 Office Visit Neurology Bhupinder Iniguez MD [address] [place] [address] [facility] Neurology specialist [place] Start: 08-31-2019 ENT [facility] Work Phone: Comment on above: Note: Please make a referral to: when sh e can have face to face visit , 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 was seen [facility] Start: 07-23-2019 Medical Established Patient [facility] Work Phone: Start: 06-05-2019 End: 06-05-2019 Patient education based on identified need [facility] Start: 06-05-2019 CPS- Asthma Clinic- F/U [facility] Work Phone: Start: 05-28-2019 End: 05-28-2019 Patient education based on identified need [facility] Start: 04-23-2019 End: 04-23-2019 Patient education based on identified need [facility] Start: 04-23-2019 End: 04-23-2019 Provider instructions for treatment Return to the clinic if condition worsens or new symptoms arise [facility] Start: 04-23-2019 End: 04-23-2019 Office Visit 04/23/2019 Office Visit Neurology Bhupinder Iniguez MD [address] [place] [address] [facility] [place] Start: 04-20-2019 End: 04-20-2019 Office Visit 04/20/2019 Office Visit General Surgery Billy Ojeda MD [address] [facility] [facility] [address] [place] [address] [facility] Start: 04-16-2019 Private Stock [facility] Work Phone: Start: 04-15-2019 End: 04-15-2019 Provider instructions for treatment Intervention and counseling on cessation of tobacco use, 3-10 minutes [facility] Start: 03-05-2019 End: 03-05-2019 Patient education based on identified need [facility] Start: 03-02-2019 End: 03-02-2019 Office Visit 03/02/2019 Office Visit Neurology Bhupinder Iniguez MD [address] [place] [address] [facility] [place] Start: 02-25-2019 End: 02-25-2019 Appointment 02/25/2019 Appointment Radiology [facility] Mammography Start: 02-01-2019 Influenza vaccination Flu vaccine (#1) [place], [place] Start: 12-22-2018 End: 10-04-2018 Free T4 [Mass/Vol] [facility] Work Phone: Start: 12-11-2018 Breast cancer screen Breast cancer screen [place], [place] Start: 11-19-2018 Screening for malignant neoplasm of breast Mammogram Screening [facility] Start: 11-06-2018 FQHC visit, estab pt Established Patient [facility] Work Phone: Start: 10-04-2018 Free T4 [Mass/Vol] [facility] Work Phone: Start: 09-11-2018 End: 10-04-2018 CBC W Auto Differential panel - Blood [facility] Work Phone: Comment on above: Note: Please make a referral to: Start: 09-04-2018 End: 10-04-2018 CBC W Auto Differential panel - Blood CBC with diff (CDP) [facility] Start: 09-04-2018 End: 10-04-2018 Comprehensive metabolic 2000 panel - Serum or Plasma Comprehensive Metabolic Panel (CP) [facility] Start: 09-04-2018 End: 10-04-2018 Lipid panel Lipid Panel (LIPR) [facility] Start: 09-04-2018 End: 10-04-2018 Thyrotropin [Units/volume] in Serum or Plasma TSH [facility] Start: 09-04-2018 End: 10-04-2018 Thyroxine (T4) free [Mass/volume] in Serum or Plasma T4 Free (FT4) [facility] Start: 11-19-2017 Screening mammography Screening mammography of both breasts, two views [facility] Start: 08-10-2017 HbA1c (Bld) [Mass fraction] A1C test (Diabetic or Prediabetic) [place] Start: 08-10-2017 Hemoglobin A1c measurement A1C test (Diabetic or Prediabetic) [facility] Start: 2016 RSV Vaccine (1 - 1-dose 60+ series) RSV Vaccine (1 - 1-dose 60+ series) [facility] Start: 03-26-2016 Shingles Vaccine (2 of 3) Shingles Vaccine (2 of 3) [facility] Start: 03-26-2016 Shingrix Vaccine (2 of 3) Shingrix Vaccine (2 of 3) [facility] Start: 2001 Screening for malignant neoplasm of colon [facility] Start: 1986 Screening for malignant neoplasm of cervix HPV (without or with Pap) [facility] Start: 1986 Zoledronic acid therapy Alpha-1 Antitrypsin Deficiency Screening [facility] Start: 1974 Annual PCP Team Chronic Disease Visit Annual PCP Team Chronic Disease Visit [facility] Start: 1974 Hepatitis C screening [facility] Start: 10-31-1971 HIV screening HIV screen [facility] Start: 1968 Depression Monitoring Depression Monitoring [facility] Start: 1962 Pneumococcal 0-64 years Vaccine (1 of 1 - PPSV23) Pneumococcal 0-64 years Vaccine (1 of 1 - PPSV23) [place], [place] Start: 1962 Pneumococcal 0-64 years Vaccine (1 of 2 - PPSV23) Pneumococcal 0-64 years Vaccine (1 of 2 - PPSV23) [facility] Start: 1956 Hepatitis C screening Hepatitis C screen [facility] End: 08-16-2022 Cytopathology procedure, preparation of smear, genital source PAP SMEAR Lab Routine Screening for malignant neoplasm of cervix 1 Occurrences starting 08/16/2022 until 08/16/2022 [facility] Work Phone: Comment on above: 1 Occurrences starting 08/16/2022 until 08/16/2022 Dermatopathology exam Dermatopat hology exam Pathology and Cytology Timed Neoplasm of unspecified behavior of bone, soft tissue, and skin Release Upon Ordering for 1 Occurrences starting 07/16/2023 [facility] Work Phone: Comment on above: Release Upon Ordering for 1 Occurrences starting 07/16/2023 End: 08-16-2022 Herpes Simplex 1 & 2, Molecular [facility] Work Phone: Comment on above: 1 Occurrences starting 08/16/2022 until 08/16/2022 Patient Education [facility] Work Phone: Patient referral [facility] Work Phone: End: 08-16-2022 Vaginitis DNA Probe [facility] Work Phone: Comment on above: 1 Occurrences starting 08/16/2022 until 08/16/2022 [facility] Immunizations Immunization Date Immunization Notes Care Provider Fa cility 10-04-2023 pneumococcal vaccine , unspecified formulation; Translations: [PCV-20] Karla Clark CNP Work Phone: Health [facility] Comment on above: Note: Patient tolera cornelia well. No signs or symptoms of adverse reactions. Patient waited a minimum of 15 minutes. 10-04-2023 Imm.Admin. over 18 y rs Any Route FIRST Injection Karla Clark CNP Work Phone: [facility] 10-04-2023 Admin Pneumococcal Vaccine Medicare Karla Clark CNP Work Phone: [facility] 03-22-2022 COVID-19 mRNA Bivale nt Booster (Enjoi) CHILD CARE SUPERVISOR Karla Clark Work Phone: [facility] 06-12-2021 COVID-19 mRNA, Comirnaty (Enjoi) CHILD CARE SUPERVISOR Karla Clark Work Phone: [facility] 07-05-2020 1st Dose MODERNA COVID-19 Vaccine Karla Clark [employer]ER Work Phone: [facility] 06-07-2020 1st Dose MODERNA COVID-19 Vaccine Karla Clark [facility] Work Phone: [facility] 03-31-2020 pneumococcal conjuga te vaccine, 13 valent; Translations: [Prevnar-13] [facility] Comment on above: Note: pt tolerated w ell pt waited 10 min in treatment room with no adverse effects noted at this time 03-31-2020 Imm.Admin. over 18 y rs Any Route FIRST Injection (Rendering physcian modifier) [facility] Work Phone: 03-31-2020 Imm.Admin. over 18 y rs Any Route FIRST Injection [facility] Work Phone: 03-14-2020 influenza, seasonal, injectable; Translations: [Flluarix] [facility] Comment on above: Note: pt tolerated w ell, pt waited 10 min in treatment with no adverse effects noted at this time. 03-14-2020 influenza, injectabl e, quadrivalent, preservative free [facility] Work Phone: 03-14-2020 Imm.Admin. over 18 y rs Any Route FIRST Injection [facility] Work Phone: 03-14-2020 Imm.Admin. over 18 y rs Any Route FIRST Injection (Rendering physcian modifier) [facility] Work Phone: 03-14-2020 influenza virus vaccine, unspecified formulation Yandel Daniel MD Work Phone: [facility] 04-15-2019 influenza, injectabl e, quadrivalent, preservative free [facility] Work Phone: 04-15-2019 influenza, seasonal, injectable [facility] Comment on above: Note: Patient tolera cornelia well. No signs or symptoms of adverse reactions. Patient waited in facility for 15 minutes. 03-20-2018 influenza, injectabl e, quadrivalent, preservative free; Translations: [FLU VAC NO PRSV 4 DANNY 3 YRS+] [facility] 03-20-2018 influenza, seasonal, injectable, preservative free [facility] 03-20-2018 IMMUNIZATION ADMIN; Translations: [IMMUNIZATION ADMIN] [facility] 03-20-2018 influenza virus vaccine, unspecified formulation Karla Clark [employer] DISPATCHER Work Phone: [facility] Work Phone: Comment on above: Note: Influenza (Juan M lt) 03-20-2018 influenza, high dose seasonal, preservative-free [facility] Comment on above: Note: Influenza (Juan M lt) 12-27-2017 tetanus toxoid, redu soren diphtheria toxoid, and acellular pertussis vaccine, adsorbed [address] 03-20-2017 influenza virus vaccine, unspecified formulation [address] 03-20-2017 influenza, seasonal, injectable Karla Clark COTTON DISPATCHER Work Phone: [facility] 03-05-2017 influenza, injectabl e, quadrivalent, preservative free; Translations: [FLU VAC NO PRSV 4 DANNY 3 YRS+] [facility] 03-05-2017 influenza, seasonal, injectable, preservative free Karla Amber [facility] 03-05-2017 IMMUNIZATION ADMIN; Translations: [IMMUNIZATION ADMIN] [facility] 03-05-2017 influenza virus vaccine, unspecified formulation Karla Clark COTTON DISPATCHER Work Phone: [facility] Work Phone: Comment on above: Note: Influenza (Juan M lt) 03-05-2017 influenza, high dose seasonal, preservative-free [facility] Comment on above: Note: Influenza (Juan M lt) 04-03-2016 Influenza Vaccine, unspecified formulation [address] 03-20-2016 influenza, injectabl e, quadrivalent, preservative free; Translations: [FLU VAC NO PRSV 4 DANNY 3 YRS+] [facility] 03-20-2016 IMMUNIZATION ADMIN; Translations: [IMMUNIZATION ADMIN] [facility] 03-20-2016 influenza virus vaccine, unspecified formulation Karlanaveed Clark [employer]OTTON DISPATCHER Work Phone: [facility] Work Phone: Comment on above: Note: Influenza (Juan M lt) 03-20-2016 influenza, high dose seasonal, preservative-free [facility] Comment on above: Note: Influenza (Juan M lt) 01-30-2016 zoster vaccine, live [facility] 2 [facility] 04-08-2015 influenza, seasonal, injectable, preservative free Karla Clark [employer] DISPATCHER Work Phone: [facility] 11-07-2014 varicella virus vaccine Gary e Amber COTTON DISPATCHER Work Phone: [facility] 04-12-2014 influenza virus vaccine, unspecified formulation [facility] 2 [facility] 03-05-2012 influenza, seasonal, injectable Karla Clark COTTON DISPATCHER Work Phone: Health [facility] 01-06-2009 tetanus toxoid, redu soren diphtheria toxoid, and acellular pertussis vaccine, adsorbed Karla Clark COTTON DISPATCHER Work Phone: [facility] Payers Date Payer Category Payer Medicaid [id number] 2023 Medicare [id number] 2023 Private Health Insurance [id number] 2022 Self-pay 2021 Medicaid MEDICAID [facility] MEDICAID [id number] 2021-Present [phone] [address] [place] [address] Medicaid [id number] 2014 Unknown HIRALJOSE G HIRALYumiko [facility] MEDICAID xxxxxxxxxxx 2014-Present [phone] CLAIMS DEPARTMENT [address] [place] [address] xxxxxxxxxxx [id number] 1959 Medicaid [id number] [id number] 2013 Unknown [id number] [id number] 1959 Medicare [id number] [id number]. [id number] 1956 Unknown [id number] 2.16.840.1.320275.3.579.2. 175 1956 Unknown [id number] 2.16.840.1.557975.3.579.2. 175 1956 Unknown [id number] 2.16.840.1.478699.3.579.2. 175 1956 Unknown [id number] 2.16.840.1.968882.3.579.2. 593 1956 Unknown [id number] 2.16.840.1.797263.3.579.2. 593 1956 Unknown [id number] 2.16.840.1.032750.3.579.2. 593 1956 Unknown [id number] 2.16.840.1.923632.3.579.2. 593 1956 Unknown [id number] 2.16.840.1.249241.3.579.2. 173 1956 Unknown [id number] 2.16.840.1.724143.3.579.2. 173 1956 Unknown [id number] 2.16.840.1.900904.3.579.2. 173 1956 Unknown [id number] 2.16.840.1.608769.3.579.2. 1259 1956 Unknown [id number] 2.16.840.1.110635.3.579.2. 1259 1956 Unknown [id number] 2.16.840.1.225474.3.579.2. 1259 1956 Unknown [id number] 2.16.840.1.499832.3.579.2. 1259 1956 Unknown [id number] 2.16.840.1.391355.3.579.2. 1259 Unknown [id number] 2.16.840.1.043638.3.579.2. 531 Unknown [id number] 2.16.840.1.671815.3.579.2. 531 Unknown [id number] 2.16.840.1.929068.3.579.2. 531 Unknown [id number] 2.16.840.1.659846.3.579.2. 531 Unknown [id number] 2.16.840.1.985991.3.579.2. 531 Unknown [id number] 2.16.840.1.067401.3.579.2. 531 Unknown [id number] 2.16.840.1.353659.3.579.2. 531 Social History Date Type Detail Facility Start: [facility] Comment on above: 1/2 PPD Start: 2-4 cups pd [facility] Start: 01-29-2019 End: 05-30-2023 Current every day smoker [facility] Gender identity finding (finding) [facility] Assertion Heterosexual (finding) [facility] Finding of sexua l orientation (finding) [facility] Tobacco user (finding) [facility] Work Phone: Tobacco smoking status Unknown if ever smoked [facility] History of tobacco use Cigarette Smoker [place], [place] Start: 01-29-2019 End: 04-11-2023 Cigarettes smoked current (pack per day) - Reported [place] Start: 01-29-2019 End: 04-11-2023 Alcohol intake No [place] Start: 1955 Sex Assigned At Not on file [place] Start: 03-23-2019 End: 08-16-2022 Alcohol intake Current non-drinker of alcohol (finding) [place] Start: 02-27-2022 [facility] Alcohol consumpt ion screening (procedure) [facility] Work Phone: Start: 03-23-2019 End: 05-30-2023 Tobacco use and exposure Never used [place] Exposure to SARS-CoV-2 (event) Not sure [place] Start: 04-18-2020 End: 01-01-2022 Tobacco Comment I smoke about 3-6 cig/day - 04-18-20. [place] Assertion Light cigarette smoker (1-9 cigs/day) (finding) [facility] Assertion Exposure to poll ution (event) [facility] Start: 09-11-2022 End: 08-20-2023 Assertion Smoker (finding) [facility] Assertion Finding relating to sexual activity (finding) [facility] Start: 12-17-2023 Assertion Ex-smoker (finding) [facility] Start: 1955 Sex Assigned At Female [facility] Assertion Currently not se xually active (finding) [facility] Start: 07-16-2023 End: 12-16-2023 Tobacco smoking status NYIS Never smoked tobacco [facility] Start: 06-28-2023 End: 09-27-2023 Alcohol intake Lifetime non-drinker (finding) [facility] Start: 05-30-2023 Tobacco Comment 3-4 cigarettes a day [facility] NEGATED: Highlighted row Assertion Exposure to pollution (event) [facility] NEGATED: Highlighted row Assertion Current drinker of alcohol (finding) [facility] NEGATED: Highlighted row Assertion Finding relating to drug misuse behavior (finding) [facility] NEGATED: Highlighted row Assertion Tobacco user (finding) [facility] Work Phone: NEGATED: Highlighted row Assertion Illicit drug use (finding) [facility] Work Phone: NEGATED: Highlighted row Assertion Misuse of prescription only drugs (finding) [facility] Work Phone: NEGATED: Highlighted row Assertion [facility] NEGATED: Highlighted row Assertion Contraception (finding) [facility] NEGATED: Highlighted row Assertion Sexually active (finding) [facility] Medical Equipment Procedure Code Equipment Code Equipment Origin al Text Equipment Identifier Dates Open reduction and internal fixation of fracture of humerus CANCELLOUS 7.5 CRUSHED FDA Start: 09-13-2022 Open reduction and internal fixation of fracture of humerus Orthopaedic bone screw, non-bioabsorbable, non-sterile ()[id number] FDA Start: 09-13-2022 Open reduction and internal fixation of fracture of humerus Orthopaedic fixation plate, non-bioabsorbable, sterile ()[id number] FDA Start: 09-13-2022 Open reduction and internal fixation of fracture of humerus Orthopaedic bone wire ()[id number] FDA Start: 09-13-2022 Open reduction and internal fixation of fracture of humerus Orthopaedic bone wire ()[id number] FDA Start: 09-13-2022 Open reduction and internal fixation of fracture of humerus Orthopaedic bone wire ()[id number] FDA Start: 09-13-2022 Open reduction and internal fixation of fracture of humerus Orthopaedic bone screw, non-bioabsorbable, non-sterile ()[id number] FDA Start: 09-13-2022 Open reduction and internal fixation of fracture of humerus Orthopaedic bone screw, non-bioabsorbable, non-sterile ()[id number] FDA Start: 09-13-2022 Open reduction and internal fixation of fracture of humerus Orthopaedic bone screw, non-bioabsorbable, non-sterile ()[id number] FDA Start: 09-13-2022 Open reduction and internal fixation of fracture of humerus Orthopaedic bone screw, non-bioabsorbable, non-sterile ()[id number] FDA Start: 09-13-2022 Open reduction and internal fixation of fracture of humerus Orthopaedic bone screw, non-bioabsorbable, non-sterile ()[id number] FDA Start: 09-13-2022 Open reduction and internal fixation of fracture of humerus Orthopaedic bone screw, non-bioabsorbable, non-sterile ()[id number] FDA Start: 09-13-2022 Open reduction and internal [...] /State Functional Status Date Assessment Result Facility 12-24-2023 Functional status Patient at [facility] Work Phone: 08-20-2023 Functional status Patient at [facility] Work Phone: 08-15-2023 Functional status Disability Sta tus Patient at Baseline [facility] Work Phone: 03-28-2023 Functional status Patient at [facility] Work Phone: 03-15-2023 Functional status Patient at [facility] Work Phone: Mental Status Date Assessment Result Facility 12-24-2023 Cognitive function Cognitive Sta tus Patient at Baseline [facility] Work Phone: 08-20-2023 Cognitive function Cognitive Sta tus Patient at Baseline [facility] Work Phone: 03-28-2023 Cognitive function Cognitive Sta tus Patient at [facility] Work Phone: 03-15-2023 Cognitive function Cognitive Sta tus Patient at [facility] Work Phone: Cognitive function No anxiety Anxiety (fi nding) [facility] Work Phone: Clinical Notes 09-04-2018 to 12-24-2023 Note Date & Type Note Facility 12-24-2023 Progress note Note Date/Time December 24, 2023 1:17 pm [facility] [address] [place] [address] Psychiatry Progress Note Signed Patient: Gail Almeida MR#: [id number] : 1955 Acct:[id number] Age/Sex: 68 / F Adm Date: 4 Loc: 1S Room: [address] [place] [address] Type : ADM IN Attending Dr: Joe Davis MD Copies to: ~ Date of Service: 12/24/2023 Subjective Subjective Narrative: Ms. Almeida reported that she is doing well. She denied any suicidal thoughts orhallucinations. She has been attending occasional groups. Sleep and appetite have been normal. Mental status exam: Mental Status: mental status grossly normal Mood:ok Affect: Mood congruent Speech and Movement: Speech and movement normal, clear speech, normal tone of voice Attitude: Cooperative Thought Process: Goal directed Thought Content: Intact, denied SI, HI and AVH Insight: Fair Judgment: Fair Exam Physical Exam Vital Signs: Temp Pulse Resp BP Pulse Ox O2 Del Method 98 F 68 16 130/71 98 Room Air 12/24/23 07:30 12/24/23 07:30 12/24/23 07:30 12/24/23 07:30 12/24/23 07:30 12/24/23 09:00 Assessment/Plan Assessment/Plan (1) Chronic schizophrenia: Plan Case management working on discharge plan Patient came from assisted living which she has not been returning phone calls at this time Continue Topamax 25 QHS, Zyprexa 5 mg daily and 15 mg QHS Continue Seroquel 400 mg QHS and 12.5 mg TID Continue [place] 300 mg twice a day, clonidine 0.1 mg daily Continue to monitor mental status Encourage group participation and medication compliance Risk benefits alternatives explained Documented By: Reynaldo Kraft MD 12/24/23 1317 Signed By: <Electronically signed by Reynaldo Kraft MD> 12/24/23 1328 [facility] Work Phone: 1(316) 397-644707-22-2024 Progress note Author Reynaldo Kraft [facility] December 23, 2023 11:11am Note Date/Time December 23, 2023 11:1 1am [facility] [address] [place] [address] Psychiatry Progress Note Signed Patient: Gail Almeida MR#: [id number] : 1955 Acct:[id number] Age/Sex: 68 / F Adm Date: 4 Loc: 1S Room: 2Q8538-4 Type : ADM IN Attending Dr: Joe Davis MD Copies to: ~ Date of Service: 12/23/2023 Subjective Subjective Narrative: Ms. Almeida reported that she is not too bad today. She reported that she has some pain in her left foot and right hip. She did take some Tylenol which seemed to alleviate some of her pain. She denied any hallucinations at this time. She denied any suicidal and homicidal thoughts. She also stated that sheis not having any paranoid thoughts. She was tolerating her medications and denied any side effects. She stated that she is okay with going to a different shelter. Mental status exam: Mental Status: mental status grossly normal Mood:ok Affect: Mood congruent Speech and Movement: Speech and movement normal, clear speech, normal tone of voice Attitude: Cooperative Thought Process: Goal directed Thought Content: Intact, denied SI, HI and AVH Insight: Fair Judgment: Fair Exam Physical Exam Vital Signs: Temp Pulse Resp BP Pulse Ox O2 Del Method 98.1 F 61 16 128/73 97 Room Air 12/23/23 07:30 12/23/23 07:30 12/23/23 07:30 12/23/23 07:30 12/23/23 07:30 12/23/23 08:54 Assessment/Plan Assessment/Plan (1) Chronic schizophrenia: Plan Patient doing better at this time and denied any suicidal thoughts. Denied hallucinations Case management working on discharge plan Continue Topamax 25 QHS, Zyprexa 5 mg daily and 15 mg QHS Continue Seroquel 400 mg QHS and 12.5 mg TID Continue [place] 300 mg twice a day, clonidine 0.1 mg daily Continue to monitor mental status Encourage group participation and medication compliance Risk benefits alternatives explained Documented By: Reynaldo Kraft MD 12/23/23 1109 Signed By: <Electronically signed by Reynaldo Kraft MD> 12/23/23 1111 [facility] Work Phone: 1(398) 689-117407-21-2024 Progress note Author Joe rodriguez [facility] December 22, 2023 6:30am Note Date/Time December 22, 2023 6:29 am [facility] [address] [place] [address] Psychiatry Progress Note Signed Patient: Gail Almeida MR#: [id number] : 1955 Acct:[id number] Age/Sex: 68 / F Adm Date: 4 Loc: Room: [address] [place] [address] Type : ADM IN Attending Dr: Joe Davis MD Copies to: ~ Date of Service: 12/22/2023 Subjective Subjective Narrative: Ms. Almeida said she is doing well and wants to attend some groups. She reports ankle pain and wants Voltaren. She denied any AVH or SI/HI. She feels stable oncurrent med regimen. Case management is working on placement options. Mental status exam: Mental Status: mental status grossly normal Mood:ok Affect: Mood congruent Speech and Movement: Speech and movement normal, clear speech, normal tone of voice Attitude: Cooperative Thought Process: Goal directed Thought Content: Intact, denied SI, HI and AVH Insight: Fair Judgment: Fair Exam Physical Exam Vital Signs: Temp Pulse Resp BP Pulse Ox O2 Del Method 98.4 F 80 16 122/69 94 L Room Air 12/21/23 20:40 12/21/23 20:40 12/21/23 20:40 12/21/23 20:40 12/21/23 20:40 12/21/23 20:40 Assessment/Plan Assessment/Plan (1) Chronic schizophrenia: Plan Patient showing signs of improvement and denied SI/HI. Case management is working on placement options. [place] level is 1.0. Case management to safety plan with patient's daughter. Continue Topamax 25 QHS, Zyprexa 5 mg daily and 15 mg QHS Continue Seroquel 400 mg QHS and 12.5 mg TID Continue [place], clonidine 0.1 mg daily Continue folic acid 1 mg daily and amantadine 100 mg daily Monitor for suicidal behaviors for safety of self (15-minute face check) Recommend attending groups and psychoeducation for building coping skills Typical short- and long-term side effects of the proposed medication regimen, including contraindications and clinically significant interactions, were discussed with the patient. Medication regimen includes Topamax, Zyprexa, Seroquel, [place], clonidine and folic acid. Side effects include but are not limited to sedation, suicide risk with antidepressents, accidental overdose, hypo or hypertension, QTC prolongation, rash, movement disorders (TD, EPS), overdose, weight gain, and appetite changes. Patient was advised to avoid drinking, driving or operating heavy machinery while taking psychiatric meds. Patient should reach out to medical provider if any of the side effects occur. Patient voiced understanding of benefits and agreement with the treatment plan. Targeted symptoms and signs, possible therapeutic benefit, side effect and riskswere discussed. Case management will work on coordinating a safe discharge plan. I have reviewedevaluations by other providers (ER notes, nurses and staff). Prognosis: Factors to be considered are the chronicity and severity of symptoms and signs, associated comorbidity, and differential diagnosis-motivation to get treatment, response to treatment, adherence to treatment recommendations, and using skills.The patient's verbal consent was provided. Documented By: Joe Davis MD [id number] 0629 Signed By: <Electronically signed by Joe Davis MD> 12/22/23 0630 [facility] Work Phone: 1(435) 166-423507-20-2024 Progress note Author Joe rodriguez [facility] December 21, 2023 6:35am Note Date/Time December 21, 2023 6:35 am [facility] [address] [place] [address] Psychiatry Progress Note Signed Patient: Gail Almeida MR#: [id number] : 1955 Acct:[id number] Age/Sex: 68 / F Adm Date: 4 Loc: 1S Room: [address] [place] [address] Type : ADM IN Attending Dr: Joe Davis MD Copies to: ~ Date of Service: 12/21/2023 Subjective Subjective Narrative: Ms. Almeida said she had a good day and staff reported that she is at her baseline. She denied any AVH or SI/HI. She feels stable on current med regimen.Case management is working on placement options. Mental status exam: Mental Status: mental status grossly normal Mood:ok Affect: Mood congruent Speech and Movement: Speech and movement normal, clear speech, normal tone of voice Attitude: Cooperative Thought Process: Goal directed Thought Content: Intact, denied SI, HI and AVH Insight: Fair Judgment: Fair Exam Physical Exam Vital Signs: Temp Pulse Resp BP Pulse Ox O2 Del Method 97.4 F L 62 16 133/83 99 Room Air 12/20/23 20:00 12/20/23 20:00 12/20/23 20:00 12/20/23 20:00 12/20/23 20:00 12/20/23 20:00 Assessment/Plan Assessment/Plan (1) Chronic schizophrenia: Plan Patient showing signs of improvement and denied SI/HI. Case management is working on placement options. [place] level is 1.0. Case management to safety plan with patient's daughter. Continue Topamax 25 QHS, Zyprexa 5 mg daily and 15 mg QHS Continue Seroquel 400 mg QHS and 12.5 mg TID Continue [place], clonidine 0.1 mg daily Continue folic acid 1 mg daily and amantadine 100 mg daily Monitor for suicidal behaviors for safety of self (15-minute face check) Recommend attending groups and psychoeducation for building coping skills Typical short- and long-term side effects of the proposed medication regimen, including contraindications and clinically significant interactions, were discussed with the patient. Medication regimen includes Topamax, Zyprexa, Seroquel, [place], clonidine and folic acid. Side effects include but are not limited to sedation, suicide risk with antidepressents, accidental overdose, hypo or hypertension, QTC prolongation, rash, movement disorders (TD, EPS), overdose, weight gain, and appetite changes. Patient was advised to avoid drinking, driving or operating heavy machinery while taking psychiatric meds. Patient should reach out to medical provider if any of the side effects occur. Patient voiced understanding of benefits and agreement with the treatment plan. Targeted symptoms and signs, possible therapeutic benefit, side effect and riskswere discussed. Case management will work on coordinating a safe discharge plan. I have reviewedevaluations by other providers (ER notes, nurses and staff). Prognosis: Factors to be considered are the chronicity and severity of symptoms and signs, associated comorbidity, and differential diagnosis-motivation to get treatment, response to treatment, adherence to treatment recommendations, and using skills.The patient's verbal consent was provided. Documented By: Joe Davis MD [id number] [id number] Signed By: <Electronically signed by Joe Davis MD> 12/21/23 0635 [facility] Work Phone: 1(726) 856-498807-19-2024 Progress note Author Joe rodriguez [facility] December 20, 2023 6:36am Note Date/Time December 20, 2023 6:36 am [facility] [address] [place] [address] Psychiatry Progress Note Signed Patient: Gail Almeida MR#: [id number] : 1955 Acct:[id number] Age/Sex: 68 / F Adm Date: 4 Loc: Room: [address] [place] [address] Type : ADM IN Attending Dr: Joe Davis MD Copies to: ~ Date of Service: 12/20/2023 Subjective Subjective Narrative: Ms. Almeida said she had a good day and staff reported that she is at her baseline. She denied any AVH or SI/HI. She is compliant with treatment. Per home health care case manager, spoke with Alma Louis from [facility] in regards to placement for pt at discharge, states [facility] is not able to care for pt and has spoke with [facility] about placement. This remote mortgage underwriter to reach out toMelody at facility to get updates on placement process. VM left Denies SI, HI and AVH. Mental status exam: Mental Status: mental status grossly normal Mood:ok Affect: Mood congruent Speech and Movement: Speech and movement normal, clear speech, normal tone of voice Attitude: Cooperative Thought Process: Goal directed Thought Content: Intact, denied SI, HI and AVH Insight: Fair Judgment: Fair Exam Physical Exam Vital Signs: Temp Pulse Resp BP Pulse Ox O2 Del Method 98.2 F 65 18 130/70 99 Room Air 12/19/23 21:26 12/19/23 21:26 12/19/23 21:26 12/19/23 21:26 12/19/23 21:26 12/19/23 21:26 Assessment/Plan Assessment/Plan (1) Chronic schizophrenia: Plan Patient showing signs of improvement and denied SI/HI. Case management is working on placement options. [place] level is 1.0. Case management to safety plan with patient's daughter. Continue Topamax 25 QHS, Zyprexa 5 mg daily and 15 mg QHS Continue Seroquel 400 mg QHS and 12.5 mg TID Continue [place], clonidine 0.1 mg daily Continue folic acid 1 mg daily and amantadine 100 mg daily Monitor for suicidal behaviors for safety of self (15-minute face check) Recommend attending groups and psychoeducation for building coping skills Typical short- and long-term side effects of the proposed medication regimen, including contraindications and clinically significant interactions, were discussed with the patient. Medication regimen includes Topamax, Zyprexa, Seroquel, [place], clonidine and folic acid. Side effects include but are not limited to sedation, suicide risk with antidepressents, accidental overdose, hypo or hypertension, QTC prolongation, rash, movement disorders (TD, EPS), overdose, weight gain, and appetite changes. Patient was advised to avoid drinking, driving or operating heavy machinery while taking psychiatric meds. Patient should reach out to medical provider if any of the side effects occur. Patient voiced understanding of benefits and agreement with the treatment plan. Targeted symptoms and signs, possible therapeutic benefit, side effect and riskswere discussed. Case management will work on coordinating a safe discharge plan. I have reviewedevaluations by other providers (ER notes, nurses and staff). Prognosis: Factors to be considered are the chronicity and severity of symptoms and signs, associated comorbidity, and differential diagnosis-motivation to get treatment, response to treatment, adherence to treatment recommendations, and using skills.The patient's verbal consent was provided. Documented By: Joe Davis MD [id number] [id number] Signed By: <Electronically signed by Joe Davis MD> 12/20/23 0636 [facility] Work Phone: 1(726) 650-617907-18-2024 Progress note Author Joe rodriguez [facility] December 19, 2023 6:46am Note Date/Time December 19, 2023 6:45 am [facility] [address] [place] [address] Psychiatry Progress Note Signed Patient: Gail Almeida MR#: [id number] : 1955 Acct:[id number] Age/Sex: 68 / F Adm Date: 4 Loc: 1S Room: [id number] Type : ADM IN Attending Dr: Joe Davis MD Copies to: ~ Date of Service: 12/19/2023 Subjective Subjective Narrative: Ms. Almeida said she had a good day and staff reported that she is at her baseline. She said she lives by herself at an assisted living. She is not internally stimulated on exam. She states she feels okay today. She denied any paranoid thoughts. She follows up with Dr. Munoz who is her outpatient psychiatrist. She said her daughter checks on her frequently. Denies SI, HI andAVH. Mental status exam: Mental Status: mental status grossly normal Mood:ok Affect: Mood congruent Speech and Movement: Speech and movement normal, clear speech, normal tone of voice Attitude: Cooperative Thought Process: Goal directed Thought Content: Intact, denied SI, HI and AVH Insight: Fair Judgment: Fair Exam Physical Exam Vital Signs: Temp Pulse Resp BP Pulse Ox O2 Del Method 97.5 F L 75 16 112/68 95 Room Air 12/18/23 19:41 12/18/23 19:41 12/18/23 19:41 12/18/23 19:41 12/18/23 19:41 12/18/23 19:41 Assessment/Plan Assessment/Plan (1) Chronic schizophrenia: Plan Patient showing signs of improvement and denied SI/HI. [place] level is 1.0. Case management to safety plan with patient's daughter. Continue Topamax 25 QHS, Zyprexa 5 mg daily and 15 mg QHS Continue Seroquel 400 mg QHS and 12.5 mg TID Continue [place], clonidine 0.1 mg daily Continue folic acid 1 mg daily and amantadine 100 mg daily Monitor for suicidal behaviors for safety of self (15-minute face check) Recommend attending groups and psychoeducation for building coping skills Typical short- and long-term side effects of the proposed medication regimen, including contraindications and clinically significant interactions, were discussed with the patient. Medication regimen includes Topamax, Zyprexa, Seroquel, [place], clonidine and folic acid. Side effects include but are not limited to sedation, suicide risk with antidepressents, accidental overdose, hypoor hypertension, QTC prolongation, rash, movement disorders (TD, EPS), overdose,weight gain, and appetite changes. Patient was advised to avoid drinking, driving or operating heavy machinery while taking psychiatric meds. Patient should reach out to medical provider if any of the side effects occur. Patient voiced understanding of benefits and agreement with the treatment plan. Targeted symptoms and signs, possible therapeutic benefit, side effect and riskswere discussed. Case management will work on coordinating a safe discharge plan. I have reviewedevaluations by other providers (ER notes, nurses and staff). Prognosis: Factors to be considered are the chronicity and severity of symptoms and signs, associated comorbidity, and differential diagnosis-motivation to get treatment, response to treatment, adherence to treatment recommendations, and using skills.The patient's verbal consent was provided. Documented By: Joe Davis MD [id number] Signed By: <Electronically signed by Joe Davis MD> 12/19/23 0646 [facility] Work Phone: 1(880) 835-544907-17-2024 Progress note Author Joe rodriguez [facility] December 18, 2023 6:40am Note Date/Time December 18, 2023 6:38 am [facility] [address] [place] [address] Psychiatry Progress Note Signed Patient: Gail Almeida MR#: [id number] : 1955 Acct:[id number] Age/Sex: 68 / F Adm Date: 4 Loc: Room: [address] [place] [address] Type : ADM IN Attending Dr: Joe Davis MD Copies to: ~ Date of Service: 12/18/2023 Subjective Subjective Narrative: Ms. Almeida said she had a good day yesterday. She tolerated increasing the dose of Seroquel and denied any side effects. She is not internally stimulated on exam. She states she feels okay today. She denied any paranoid thoughts. She follows up with Dr. Munoz who is her outpatient psychiatrist. She feels safe and has not been having any visual hallucinations while being here. Rates anxiety as a 3/10 and depression as a 3/10. States she is having some anxiety from being away from home. Denies SI, HI and AVH. Mental status exam: Mental Status: mental status grossly normal Mood:ok Affect: Mood congruent Speech and Movement: Speech and movement normal, clear speech, normal tone of voice Attitude: Depressed Thought Process: Goal directed Thought Content: Intact, denied SI, HI and AVH Insight: Fair Judgment: Fair Exam Physical Exam Vital Signs: Temp Pulse Resp BP Pulse Ox O2 Del Method 97.6 F 60 16 120/81 98 Room Air 12/17/23 19:47 12/17/23 19:47 12/17/23 19:47 12/17/23 19:47 12/17/23 19:47 12/17/23 19:47 Objective Labs Labs: Abnormal Labs 12/17/23 05:42 25-OH Vitamin D Total 26.0 L TSH 3rd Generation 0.27 L Assessment/Plan Assessment/Plan (1) Chronic schizophrenia: (2) Acute psychosis: Plan Patient showing signs of improvement and denied SI/HI. [place] level is pending. Continue Topamax 25 QHS, Zyprexa 5 mg daily and 15 mg QHS Continue Seroquel 400 mg QHS and 12.5 mg TID Continue [place], clonidine 0.1 mg daily Continue folic acid 1 mg daily and amantadine 100 mg daily Monitor for suicidal behaviors for safety of self (15-minute face check) Recommend attending groups and psychoeducation for building coping skills Typical short- and long-term side effects of the proposed medication regimen, including contraindications and clinically significant interactions, were discussed with the patient. Medication regimen includes Topamax, Zyprexa, Seroquel, [place], clonidine and folic acid. Side effects include but are not limited to sedation, suicide risk with antidepressents, accidental overdose, hypo or hypertension, QTC prolongation, rash, movement disorders (TD, EPS), overdose, weight gain, and appetite changes. Patient was advised to avoid drinking, driving or operating heavy machinery while taking psychiatric meds. Patient should reach out to medical provider if any of the side effects occur. Patient voiced understanding of benefits and agreement with the treatment plan. Targeted symptoms and signs, possible therapeutic benefit, side effect and riskswere discussed. Case management will work on coordinating a safe discharge plan. I have reviewedevaluations by other providers (ER notes, nurses and staff). Prognosis: Factors to be considered are the chronicity and severity of symptoms and signs, associated comorbidity, and differential diagnosis-motivation to get treatment, response to treatment, adherence to treatment recommendations, and using skills.The patient's verbal consent was provided. Documented By: Joe Davis MD [id number] [id number] Signed By: <Electronically signed by Joe Davis MD> 12/18/23 0640 [facility] Work Phone: 1([phone]) 376-588607-16-2024 History and physical note Author Joe rodriguez [facility] December 17, 2023 11:50am Note Date/Time December 17, 2023 10:1 7am [facility] [address] [place] [address] Psychiatry H&P Signed Patient: Gail Almeida MR#: [id number] : 1955 Acct:[id number] Age/Sex: 68 / F Adm Date: 4 Loc: Room: [address] [place] [address] Type: ADM IN Attending Dr: Joe Davis MD Copies to: NON STAFF MD Mazin Vides DO, RES~ Date of Service: 12/17/2023 HPI History of Present Illness History of present illness: Ms. Almeida is a 68 year old female who presents for inpatient treatment due to visual hallucinations. Reportedly, patient presented to the ER via EMS after thenursing staff at the assisted living facility called. She lives at [facility]. The pt has been having visual hallucinations of a hooded man hiding in her closet for the last week. She has not been able to sleep because of this. She made the nursing staff aware and eventually the nursing staff called EMS. Patient was personally seen by me on the day of the encounter. I reviewed the history and performed the courtney elements of the assessment. I formulated the planof care and confirmed this with the resident as noted below Patient presents as depressed. She states she feels okay today. She reports having paranoid thoughts that people are trying to get her. She follows up with Dr. Munoz who is her outpatient psychiatrist. She feels safe and has not been having any visual hallucinations while being here. Rates anxiety as a 6/10 and depression as a 3/10. States she is having some anxiety from being away from home. Denies SI, HI and AVH. Pt answers all questions but is not very conversational. Past psych history: Anxiety, depression, schizoaffective schizophrenia, bipolar Past hospitalizations: Quite a few times most recent was 4-5 months ago Past suicide attempts: Once about 15-20 years ago Previous medications: Olanzapine, quetiapine, Risperdal, Zyprexa, Topamax, and clonidine Alcohol and drug use: Denies alcohol and recreational drug use Living: Assisted living facility Employment: Retired ROS: Constitutional: Cooperative Eyes: Denies vision changes ENT: Denies hearing changes Cardio: Denies palpitations Resp: Denies SOB GI: Denies changes in bowel habits : Denies dysuria MSK: Denies body aches Integumentary/breasts: Denies dry skin Neurologic: Denies numbness/tingling Psychciatric: Reports of anxiety and depression Physical exam: Constitutional: Cooperative, poor eye contact Nutritional appearance: Average body habitus Orientation: Alert and oriented x3 HEENT: Head normal to inspection, hard of hearing, external nose normal, face symmetric Eyes: Appearance normal, both eyes and all related structures, sclerae normal Neck: Normal visual inspection and full ROM Resp: Normal respiratory effort, able to speak in complete sentences and symmetric chest movement, mild wheezing while speaking Cardio: Regular rate and rhythm GI: Normal inspection and non-distended : Deferred Skin: No rashes or lesions noted Neuro: CNI: normal olfaction, CNII: visual carpenter intact, CNII,IV,: EOM intact, no nystagmus. PERRLA, CNV: Raises eyebrows, smile/frown, puff out cheekssymmetrically, CNVIII: Hard of hearing bilaterally, CNIX,X: Voice normal, soft palate elevation normal CNXI: Shoulder shrug strong, equal bilaterally, CNXII: tongue protrusion midline, movement symmetrical Extrem: Normal to inspection and full ROM Mental status exam: Mental Status: mental status grossly normal Mood: Depressed Affect: Flat Speech and Movement: Speech and movement normal, clear speech, normal tone of voice Attitude: Depressed Thought Process: Impoverished Thought Content: Intact, denied SI, HI and AVH Insight: Poor Judgment: Poor [facility] Medical History (Updated 12/16/23 @ 14:32 by Juve Spears PA-C) Right knee pain Localized swelling, mass and lump, neck Vision loss Diabetes mellitus type 2, controlled, without complications Parkinson disease Schizoaffective disorder RBBB Chronic bronchitis Smoker COPD (chronic obstructive pulmonary disease) Asthma Anxiety Depression Bipolar disorder Migraine Back pain Arthritis Sinus drainage chronic GERD (gastroesophageal reflux disease) Thyroid lesion Heart attack Surgical History H/O thyroidectomy Hx of breast lump removal rt-benign History of tubal ligation History of hysterectomy Family History Father H/O heart artery stent CAD (coronary artery disease) Mother Recurrent strokes Brother CHF (congestive heart failure) Muscular dystrophy Social History Smoking Status: Former smoker Tobacco Type: cigarettes Substance Use Type: None Social History Comments: alone in apartment Meds Medications and Allergies Allergies amphetamine Allergy (Unknown, Verified 12/16/23 13:03) pain aspirin Allergy (Unknown, Verified 12/16/23 13:03) shock , dizzy Barbiturates Allergy (Unknown, Verified 12/16/23 13:03) Unknown Reaction codeine Allergy (Unknown, Verified 12/16/23 13:03) Unknown Reaction, unknown fluoxetine Allergy (Unknown, Verified 12/16/23 13:03) Unknown Reaction, feel wacked out ibuprofen Allergy (Unknown, Verified 12/16/23 13:03) Unknown Reaction meperidine Allergy (Unknown, Verified 12/16/23 13:03) Unknown Reaction penicillin G Allergy (Unknown, Verified 12/16/23 13:03) anaphylaxis Sulfa (Sulfonamide Antibiotics) Allergy (Unknown, Verified 12/16/23 13:03) nausea; strange odor , odor producing Penicillins Allergy (Verified 12/16/23 13:03) Swelling of Lip/Tongue/Throat sulfamethoxazole [From Bactrim] Allergy (Verified 12/16/23 13:03) Unknown Reaction trimethoprim [From Bactrim] Allergy (Verified 12/16/23 13:03) Unknown Reaction trazodone Adverse Reaction (Verified 12/16/23 13:03) restlessness Home Medications amantadine HCl 100 mg tablet 100 mg PO BID 09/11/22 [History Confirmed 12/16/23] benztropine 0.5 mg tablet 0.5 mg PO BID 09/11/22 [History Confirmed 12/16/23] clonidine HCl 0.1 mg tablet 0.1 mg PO DAILY 09/11/22 [History Confirmed 12/16/23] famotidine 20 mg tablet 20 mg PO BID 09/11/22 [History Confirmed 12/16/23] loratadine 10 mg tablet 10 mg PO DAILY 09/11/22 [History Confirmed 12/16/23] meloxicam 15 mg tablet 15 mg PO DAILY 09/11/22 [History Confirmed 12/16/23] topiramate 25 mg tablet 25 mg PO QHS 09/11/22 [History Confirmed 12/16/23] docusate sodium 100 mg capsule 100 mg PO HS 03/12/23 [History Confirmed 12/16/23] polyethylene glycol 3350 17 gram/dose oral powder 17 g PO DAILY PRN Lioouhtwgacd12/10/23 [History Confirmed 12/16/23] albuterol sulfate 90 mcg/actuation aerosol inhaler 2 puff inhalation Q6H PRN Shortness Of Breath Or Wheezing 03/26/23 [History Confirmed 12/16/23] cyanocobalamin (vitamin B-12) 500 mcg tablet (Vitamin B-12) 500 mcg PO DAILY 03/26/23 [History Confirmed 12/16/23] fluticasone propionate 50 mcg/actuation nasal spray,suspension 1 spray intranasal BID 03/26/23 [History Confirmed 12/16/23] folic acid 800 mcg tablet 800 mcg PO DAILY 03/26/23 [History Confirmed 12/16/23] acetaminophen 500 mg tablet 500 mg PO Q6HR PRN fever or pain 08/15/23 [History Confirmed 12/16/23] calcium carbonate (Oyster Shell Calcium) 500 mg PO DAILY 08/15/23 [History Confirmed 12/16/23] dextromethorphan-guaifenesin 30 mg-600 mg tablet extended [id number] hr (Mucus DM) 1 tab PO Q12HR PRN cough 08/15/23 [History Confirmed 12/16/23] diclofenac sodium 1 % topical gel 2 g topical 4XD PRN pain 08/15/23 [History Confirmed 12/16/23] fluticasone 250 mcg-salmeterol 50 mcg/dose blistr powdr for inhalation (Advair Diskus) 1 inh inhalation BID 08/15/23 [History Confirmed 12/16/23] levothyroxine 112 mcg tablet 112 mcg PO 0630 08/15/23 [History Confirmed 12/16/23] nystatin 100,000 unit/gram topical cream 1 applic topical BID 08/15/23 [History Confirmed 12/16/23] olanzapine 5 mg tablet (Zyprexa) 5 mg PO DAILY 08/15/23 [History Confirmed 12/16/23] quetiapine 25 mg tablet 12.5 mg PO BID 08/15/23 [History Confirmed 12/16/23] risperidone microspheres 37.5 mg/2 mL intramuscular susp,ext releas (Risperdal Consta) 37.5 mg IM Q2W 08/15/23 [History Confirmed 12/16/23] quetiapine 400 mg tablet 400 mg PO HS 08/16/23 [History Confirmed 12/16/23] lithium carbonate 300 mg capsule 300 mg PO BID #60 caps 08/20/23 [Rx Confirmed 12/16/23] olanzapine 15 mg tablet 15 mg PO QHS #30 tabs 08/20/23 [Rx Confirmed 12/16/23] Exam Physical Exam Vital Signs: Temp Pulse Resp BP Pulse Ox O2 Del Method 98 F 60 16 117/63 96 Room Air 12/16/23 19:56 12/16/23 19:56 12/16/23 19:56 12/16/23 19:56 12/16/23 19:56 12/16/23 19:56 Results - Psychiatry Labs 12/16/23 13:10 12/16/23 13:10 Psychiatry Labs: 12/16/23 12/16/23 13:10 13:12 RBC 3.85 Hgb 12.2 Hct 36.4 MCV 94.5 MCH 31.7 MCHC 33.6 RDW 14.6 Plt Count 229 MPV 8.4 Sodium 139 Potassium 3.8 Chloride 110 H Carbon Dioxide 22.9 Anion Gap 9.9 BUN 26 H Creatinine 1.51 H Calcium 9.8 Total Bilirubin 0.3 AST 16 ALT 14 Alkaline Phosphatase 101 Total Protein 6.6 Albumin 4.1 Urine Color Colorless Urine Appearance Clear Urine pH 7.0 Ur Specific [place] 1.005 Urine Protein Negative Urine Glucose (UA) Normal Urine Ketones Negative Urine Occult Blood Negative Urine Nitrite Negative Ur Leukocyte Esterase Negative Assessment/Plan (1) Chronic schizophrenia: (2) Acute psychosis: Plan Continue Topamax 25 QHS, Zyprexa 5 mg daily and 15 mg QHS Continue Seroquel 400 mg QHS and 12.5 mg TID Continue [place], clonidine 0.1 mg daily Continue folic acid 1 mg daily and amantadine 100 mg daily Monitor for suicidal behaviors for safety of self (15-minute face check) Recommend attending groups and psychoeducation for building coping skills Typical short- and long-term side effects of the proposed medication regimen, including contraindications and clinically significant interactions, were discussed with the patient. Medication regimen includes Topamax, Zyprexa, Seroquel, [place], clonidine and folic acid. Side effects include but are not limited to sedation, suicide risk with antidepressents, accidental overdose, hypo or hypertension, QTC prolongation, rash, movement disorders (TD, EPS), overdose, weight gain, and appetite changes. Patient was advised to avoid drinking, driving or operating heavy machinery while taking psychiatric meds. Patient should reach out to medical provider if any of the side effects occur. Patient voiced understanding of benefits and agreement with the treatment plan. Targeted symptoms and signs, possible therapeutic benefit, side effect and riskswere discussed. Case management will work on coordinating a safe discharge plan. I have reviewedevaluations by other providers (ER notes, nurses and staff). Prognosis: Factors to be considered are the chronicity and severity of symptoms and signs, associated comorbidity, and differential diagnosis-motivation to get treatment, response to treatment, adherence to treatment recommendations, and using skills.The patient's verbal consent was provided. Documented By: Mazin Lamb DO, RES 12/17/23 0755 Signed By: <Electronically signed by DO DONOVAN Lamb> 12/17/23 1017 <Electronically signed by Joe Davis MD> 12/17/23 1150 [facility] Work Phone: 1(996) 622-661706-14-2024 Instructions Includes: Instructions for all patient encounters Instructions to patient Intervention and counseling on cessation of tobacco use, 3-10 minutes Discussed medication and nicotine replacement for tobacco cessation Last Documented On 3 8:54AM ; [facility] Intervention and counseling on cessation of tobacco use, 3-10 minutes Discussed medication and nicotine replacement for tobacco cessation Last Documented On 2 1:56PM ; [facility] Intervention and counseling on cessation of tobacco use, 3-10 minutes Last Documented On 0 2:07PM ; [facility] Return to the clinic if cond ition worsens or new symptoms arise Last Documented On 9 1:59PM ; [facility] Intervention and counseling on cessation of tobacco use, 3-10 minutes Last Documented On 9 10:39AM ; [facility] Education and Decision Aids were provided during visit for: Discussed nutritional needs teach healthy choices including fruits and vegetables Last Documented On 4 1:26PM ; [facility] Patient education about a pr oper diet Last Documented On 4 1:26PM ; [facility] Discussed concerns about exe rcise : promote physical activity Last Documented On 4 1:26PM ; [facility] Discussed nutritional needs teach healthy choices including fruits and vegetables Last Documented On 3 10:55AM ; [facility] Patient education about a pr oper diet Last Documented On 3 10:55AM ; [facility] Discussed concerns about exe rcise : promote physical activity Last Documented On 3 10:55AM ; [facility] Discussed nutritional needs teach healthy choices including fruits and vegetables Last Documented On 3 9:37AM ; [facility] Patient education about a pr oper diet Last Documented On 3 9:37AM ; [facility] Discussed concerns about exe rcise : promote physical activity Last Documented On 3 9:37AM ; [facility] Not requesting contraception Last Documented On 3 9:37AM ; [facility] Discussed nutritional needs teach healthy choices including fruits and vegetables Last Documented On 3 9:20AM ; [facility] Patient education about a pr oper diet Last Documented On 3 9:20AM ; [facility] Discussed concerns about exe rcise : promote physical activity Last Documented On 3 9:20AM ; [facility] Discussed nutritional needs teach healthy choices including fruits and vegetables Last Documented On 3 2:02PM ; [facility] Patient education about a pr oper diet Last Documented On 3 2:02PM ; [facility] Discussed concerns about exe rcise : promote physical activity Last Documented On 3 2:02PM ; [facility] Discussed nutritional needs teach healthy choices including fruits and vegetables Last Documented On 3 8:32AM ; [facility] Patient education about a pr oper diet Last Documented On 3 8:32AM ; [facility] Discussed concerns about exe rcise : promote physical activity Last Documented On 3 8:32AM ; [facility] Discussed nutritional needs teach healthy choices including fruits and vegetables Last Documented On 3 11:28AM ; [facility] Patient education about a pr oper diet Last Documented On 3 11:28AM ; [facility] Discussed concerns about exe rcise : promote physical activity Last Documented On 3 11:28AM ; [facility] Discussed nutritional needs teach healthy choices including fruits and vegetables Last Documented On 2 2:01PM ; [facility] Patient education about a pr oper diet Last Documented On 2 2:01PM ; [facility] Discussed concerns about exe rcise : promote physical activity Last Documented On 2 2:01PM ; [facility] Discussed nutritional needs teach healthy choices including fruits and vegetables Last Documented On 2 2:11PM ; [facility] Patient education about a pr oper diet Last Documented On 2 2:11PM ; [facility] Discussed concerns about exe rcise : promote physical activity Last Documented On 2 2:11PM ; [facility] Discussed current self-care methods/coping skills. ~Validated and normalized pt's feelings while assisting patient process recent events. ~Discussed ongoing counseling. ~Discussed lifestyle changes to address chronic illness. ~Supported patient's personal health goals ~wordfinds. walk, read, eat, enjoy my best friesnd Last Documented On 2 5:54PM ; [facility] Discussed nutritional needs teach healthy choices including fruits and vegetables Last Documented On 2 10:04AM ; [facility] Patient education about a pr oper diet Last Documented On 2 10:04AM ; [facility] Discussed concerns about exe rcise : promote physical activity Last Documented On 2 10:04AM ; [facility] Discussed nutritional needs teach healthy choices including fruits and vegetables Last Documented On 2 1:25PM ; [facility] Patient education about a pr oper diet Last Documented On 2 1:25PM ; [facility] Discussed concerns about exe rcise : promote physical activity Last Documented On 2 1:25PM ; [facility] Discussed nutritional needs teach healthy choices including fruits and vegetables Last Documented On 1 10:08AM ; [facility] Patient education about a pr oper diet Last Documented On 1 10:08AM ; [facility] Discussed concerns about exe rcise : promote physical activity Last Documented On 1 10:08AM ; [facility] Discussed nutritional needs teach healthy choices including fruits and vegetables Last Documented On 1 1:12PM ; [facility] Patient education about a pr oper diet Last Documented On 1 1:12PM ; [facility] Patient education about a pr oper diet Last Documented On 1 1:30PM ; [facility] Patient education about meal planning Last Documented On 1 1:30PM ; [facility] Education about changing eat ing habits Last Documented On 1 1:30PM ; [facility] Patient education about high fiber diet Last Documented On 1 1:30PM ; [facility] Patient education about low fat diet Last Documented On 1 1:30PM ; [facility] Patient education about low cholesterol diet Last Documented On 1 1:30PM ; [facility] Patient education about low carbohydrate diet Last Documented On 1 1:30PM ; [facility] Patient education about high protein diet Last Documented On 1 1:30PM ; [facility] Discussed concerns about exe rcise : promote physical activity Last Documented On 1 1:12PM ; [facility] Education/counseling conduct ed by pharmacist Last Documented On 0 1:39PM ; [facility] Vaccination counseling Last Documented On 0 1:39PM ; [facility] Discussed concerns about exe rcise : promote physical activity Last Documented On 0 2:16PM ; [facility] Patient goals decrease short ness of breath episodes Last Documented On 0 2:11PM ; [facility] Patient states that she uses her rescue [...] recently Last Documented On 0 2:24PM ; [facility] Patient education about a pr oper diet Last Documented On 0 2:54PM ; [facility] Patient education about meal planning Last Documented On 0 2:54PM ; [facility] Education about changing eat ing habits Last Documented On 0 2:54PM ; [facility] Patient education about high fiber diet Last Documented On 0 2:54PM ; [facility] Patient education about low fat diet Last Documented On 0 2:54PM ; [facility] Patient education about low cholesterol diet Last Documented On 0 2:54PM ; [facility] Patient education about low carbohydrate diet Last Documented On 0 2:54PM ; [facility] Patient education about high protein diet Last Documented On 0 2:54PM ; [facility] Discussed nutritional needs teach healthy choices including fruits and vegetables Last Documented On 0 11:11AM ; [facility] Patient education about a pr oper diet Last Documented On 0 11:11AM ; [facility] Patient education about a pr oper diet Last Documented On 0 11:28AM ; [facility] Patient education about meal planning Last Documented On 0 11:28AM ; [facility] Education about changing eat ing habits Last Documented On 0 11:28AM ; [facility] Patient education about high fiber diet Last Documented On 0 11:28AM ; [facility] Patient education about low fat diet Last Documented On 0 11:28AM ; [facility] Patient education about low cholesterol diet Last Documented On 0 11:28AM ; [facility] Patient education about low carbohydrate diet Last Documented On 0 11:28AM ; [facility] Patient education about high protein diet Last Documented On 0 11:28AM ; [facility] Discussed concerns about exe rcise : promote physical activity Last Documented On 0 11:11AM ; [facility] Education/counseling conduct ed by pharmacist Last Documented On 0 1:41PM ; [facility] Patient states that she lonnie gonzalez has [...] own Last Documented On 0 2:08PM ; [facility] Education/counseling conduct ed by pharmacist Last Documented On 9 1:12PM ; [facility] Patient states that she lonnie gonzalez has issues with her inhaler with the spacer. Patient did not bring in inhaler or spacer. Patient was told to bring in inhalers at next scheduled visit for pharmacist to assess inhalation technique. Patient is agreeable Last Documented On 9 1:13PM ; [facility] Patient goals Start using ch deon to help with inhaling dulera Last Documented On 9 2:40PM ; [facility] Patient states that she is g etting [...] vaccines Last Documented On 9 2:51PM ; [facility] Discussed nutritional needs teach healthy choices including fruits and vegetables Last Documented On 9 9:29AM ; [facility] Patient education about a pr oper diet Last Documented On 9 9:29AM ; [facility] Discussed concerns about exe rcise : promote physical activity Last Documented On 9 9:29AM ; [facility] Work Phone: 1(100) 385-250405-03-2024 Evaluation note Includes: Assessments for all patient encounters Findings Encounter Date [F17.210 - Nicotine dependen ce, cigarettes, uncomplicated] continuous dependence on cigarette smoking Medical Established Patient with Karla Clark DAKSHA 10/04/2023 Last Documented On 4 6:30PM ; [facility] [Z12.11 - Encounter for scre ening for malignant neoplasm of colon] Colon screening Medical Established Patient with Karla Clark DAKSHA 10/04/2023 Last Documented On 4 6:30PM ; [facility] [Z68.25 - Body mass index [B AR] 25.0-25.9, adult] assessment of body mass index Medical Established Patient with Karla Clark [facility] [employer] 10/04/2023 Last Documented On 4 6:30PM ; [facility] Diabetes Risk Test Score was five score 10/04/2023 Medical Established Patient with Karla Clark [employer] 10/04/2023 Last Documented On 4 6:30PM ; [facility] Encounter for Immunization Medical Estab lished Patient with Karla Clark [employer] 10/04/2023 Last Documented On 4 6:30PM ; [facility] [D48.5 - Neoplasm of uncerta in behavior of skin] skin neoplasm of uncertain behavior Medical Established Patient with Karla Clark [employer] 05/22/2023 Last Documented On 3 1:30PM ; [facility] [Z68.24 - Body mass index [B AR] 24.0-24.9, adult] assessment of body mass index Medical Established Patient with Karla Clark [employer] 05/22/2023 Last Documented On 3 1:30PM ; [facility] Assessment of tobacco use Medical Establ ished Patient with Karla Clark [facility] 05/22/2023 Last Documented On 3 1:30PM ; [facility] [R30.0 - Dysuria] Dysuria Chart Update with Gary Clark [facility] 03/21/2023 Last Documented On 3 11:27AM ; [facility] [Z12.39 - Encounter for othe r screening for malignant neoplasm of breast] visit for: screening for malignant breast neoplasm Medical Established Patient with Lina Penix [employer] DISPATCH[employer] 02/28/2023 Last Documented On 3 9:51AM ; [facility] [Z68.24 - Body mass index [B AR] 24.0-24.9, adult] assessment of body mass index Medical Established Patient with Lina Penix [employer] 02/28/2023 Last Documented On 3 9:51AM ; [facility] Assessment of tobacco use Medical Establ ished Patient with Lina Penix [employer] DISP[employer] 02/28/2023 Last Documented On 3 9:51AM ; [facility] Chronic obstructive pulmonary disease Me dical Established Patient with Aaron Whitaker [employer] 02/28/2023 Last Documented On 3 9:51AM ; [facility] [J20.9 - Acute bronchitis, unspecified] acute bronchitis Medical Established Patient with Karla Clark [employer] 11/19/2022 Last Documented On 3 10:15AM ; [facility] [M79.621 - Pain in right upp er arm] pain in upper arm Medical Established Patient with Karla Clark [employer] 11/19/2022 Last Documented On 3 10:15AM ; [facility] [Z68.23 - Body mass index [B AR] 23.0-23.9, adult] assessment of body mass index Medical Established Patient with Karla Clark [employer] 11/19/2022 Last Documented On 3 10:15AM ; [facility] [M79.601 - Pain in right arm ] pain in right arm Medical Established Patient with Karla Clark [employer] 09/18/2022 Last Documented On 3 2:33PM ; [facility] [Z68.24 - Body mass index [B AR] 24.0-24.9, adult] assessment of body mass index Medical Established Patient with Karla Clark [employer] 09/18/2022 Last Documented On 3 2:33PM ; [facility] Assessment of tobacco use Medical Establ ished Patient with Karla Amber [employer] 09/18/2022 Last Documented On 3 2:33PM ; [facility] [M25.569 - Pain in unspecifi ed knee] arthralgia of knee / patella / tibia / fibula Medical Established Patient with Karlanaveed Clark COTTON DISPATCHER 08/27/2022 Last Documented On 3 9:20AM ; [facility] [Z68.24 - Body mass index [B AR] 24.0-24.9, adult] assessment of body mass index Medical Established Patient with Karla Clark COTTON DISPATCHER 08/27/2022 Last Documented On 3 9:20AM ; [facility] Intervention and counseling on cessation of tobacco use, 3-10 minutes Discussed medication and nicotine replacement for tobacco cessation Medical Established Patient with Karla Clark CNP 08/27/2022 Last Documented On 3 9:20AM ; [facility] Nicotine dependence Medical Established Patient with Karla Clark COTTON DISPATCHER 08/27/2022 Last Documented On 3 9:20AM ; [facility] Visit for routine adult H&P without abnormal findings Medical Established Patient with Karla Clark COTTON DISPATCHER 08/27/2022 Last Documented On 3 9:20AM ; [facility] [H92.02 - Otalgia, left ear] earache Med ical Established Patient with Karla Clark COTTON DISPATCHER 06/18/2022 Last Documented On 3 12:11PM ; [facility] [M79.604 - Pain in right leg ] pain in right leg Medical Established Patient with Karla Clark COTTON DISPATCHER 06/18/2022 Last Documented On 3 12:11PM ; [facility] [Z68.24 - Body mass index [B AR] 24.0-24.9, adult] assessment of body mass index Medical Established Patient with Karla Clark COTTON DISPATCHER 06/18/2022 Last Documented On 3 12:11PM ; [facility] Assessment of tobacco use Medical Establ ished Patient with Karla Clark COTTON DISPATCHER 06/18/2022 Last Documented On 3 12:11PM ; [facility] Diabetes Risk Test Score was four score 06/18/2022 Medical Established Patient with Karla Clark COTTON DISPATCHER 06/18/2022 Last Documented On 3 12:11PM ; [facility] Schizoaffective disorder Established Patient [facility] 03/20/2022 Last Documented On 2 12:13AM ; [facility] No cough Medical Established Patient with Karla Clark COTTON DISPATCHER 12/20/2021 Last Documented On 2 3:12PM ; [facility] Visit for: screening for hum an immunodeficiency virus Medical Established Patient with Karla Clark COTTON DISPATCHER 12/20/2021 Last Documented On 2 3:12PM ; [facility] Z68.24 - Body mass index [BM I] 24.0-24.9, adult Medical Established Patient with Karlanaveed Floresen COTTON DISPATCHER 12/20/2021 Last Documented On 2 3:12PM ; [facility] Bipolar disorder NOS BH Established Patient with Yin Feliz LPCC-S 11/03/2021 Last Documented On 2 7:00PM ; [facility] Bipolar schizoaffective disorder BH Esta blished Patient with Yin Feliz LPCC-S 11/03/2021 Last Documented On 2 7:00PM ; [facility] PLAN Medical Established Patient with Don Pino MD 11/03/2021 Last Documented On 2 10:40AM ; [facility] Abnormal electrocardiogram Medical Estab lished Patient with Don Pino MD 11/03/2021 Last Documented On 2 10:40AM ; [facility] Z68.24 - Body mass index [BM I] 24.0-24.9, adult Medical Established Patient with Don Pino MD 11/03/2021 Last Documented On 2 10:40AM ; [facility] Cough Medical Established Patient with Karla Amber COTTON DISPATCHER 07/28/2021 Last Documented On 2 2:01PM ; [facility] Intervention and counseling on cessation of tobacco use, 3-10 minutes Discussed medication and nicotine replacement for tobacco cessation Medical Established Patient with Karla Amber COTTON DISPATCHER 07/28/2021 Last Documented On 2 2:01PM ; [facility] Nicotine dependence Medical Established Patient with Karla Amber COTTON DISPATCHER 07/28/2021 Last Documented On 2 2:01PM ; [facility] Z68.24 - Body mass index [BM I] 24.0-24.9, adult Medical Established Patient with Karla Amber COTTON DISPATCHER 07/28/2021 Last Documented On 2 2:01PM ; [facility] Assess Colon screening Medical Established Patie nt with Karla Amber COTTON DISPATCHER 05/08/2021 Last Documented On 1 10:59AM ; [facility] Diabetes Risk Test Score was four score 05/08/2021 Medical Established Patient with Karla Amber COTTON DISPATCHER 05/08/2021 Last Documented On 1 10:59AM ; [facility] Routine adult history and ph ysical (18-64 yrs) without abnormal findings Medical Established Patient with Karla Amber COTTON DISPATCHER 05/08/2021 Last Documented On 1 10:59AM ; [facility] Z68.24 - Body mass index [BM I] 24.0-24.9, adult Medical Established Patient with Karla Amber COTTON DISPATCHER 05/08/2021 Last Documented On 1 10:59AM ; [facility] Z68.24 - Body mass index [BM I] 24.0-24.9, adult Medical Established Patient with Karla Amber COTTON DISPATCHER 06/17/2020 Last Documented On 1 10:30AM ; [facility] Overweight Medical Established Patient with Karla Amber COTTON DISPATCHER 06/06/2020 Last Documented On 1 2:06PM ; [facility] Z68.25 - Body mass index [BM I] 25.0-25.9, adult Medical Established Patient with Karla Amber COTTON DISPATCHER 06/06/2020 Last Documented On 1 2:06PM ; [facility] Antiasthmatics [facility] Asthma Clinic-New with Karla Amber COTTON DISPATCHER 05/06/2020 Last Documented On 0 7:27PM ; [facility] Assessment of tobacco use CPS Ast[facility] Clinic-New with Karla Amber COTTON DISPATCHER 05/06/2020 Last Documented On 0 7:27PM ; [facility] Body mass index [facility] Asthma Clinic-New with Karla Amber COTTON DISPATCHER 05/06/2020 Last Documented On 0 7:27PM ; [facility] Chronic obstructive pulmonary disease CP S [facility] Clinic-New with Karla Amber COTTON DISPATCHER 05/06/2020 Last Documented On 0 7:27PM ; [facility] Overweight [facility] Asthma Clinic-New with Karla Amber COTTON DISPATCHER 05/06/2020 Last Documented On 0 7:27PM ; [facility] Z11.4 - Encounter for screen ing for human immunodeficiency virus [HIV] CPS [facility]-New with Karla Clark COTTON DISPATCHER 05/06/2020 Last Documented On 0 7:27PM ; [facility] Diabetes Risk Test Score was three score 03/31/2020 Medical Established Patient with Karla Floresen COTTON DISPATCHER 03/31/2020 Last Documented On 0 3:22PM ; [facility] Overweight Medical Established Patient with Karlanaveed Floresen COTTON DISPATCHER 03/31/2020 Last Documented On 0 3:22PM ; [facility] Z68.25 - Body mass index [BM I] 25.0-25.9, adult Medical Established Patient with Karlanaveed Floresen COTTON DISPATCHER 03/31/2020 Last Documented On 0 3:22PM ; [facility] Encounter for Immunization Nurse Visit with Gary Clark COTTON DISPATCHER 03/14/2020 Last Documented On 0 5:11PM ; [facility] Body mass index Medical Established Patient with Karla Floresen COTTON DISPATCHER 02/26/2020 Last Documented On 0 1:18PM ; [facility] Overweight Medical Established Patient with Karlanaveed Floresen COTTON DISPATCHER 02/26/2020 Last Documented On 0 1:18PM ; [facility] Overweight Medical Established Patient with Karla Floresen COTTON DISPATCHER 07/23/2019 Last Documented On 0 2:33PM ; [facility] Z68.27 - Body mass index (BM I) 27.0-27.9, adult Medical Established Patient with Karla Floresen COTTON DISPATCHER 07/23/2019 Last Documented On 0 2:33PM ; [facility] Occasional asthma CPS- Asthma Clinic- F/U with A french Floresen COTTON DISPATCHER 06/05/2019 Last Documented On 0 7:04PM ; [facility] Overweight CPS- Asthma Clinic- F/U with Aim ee Amber COTTON DISPATCHER 06/05/2019 Last Documented On 0 7:04PM ; [facility] Z68.27 - Body mass index (BM I) 27.0-27.9 adult CPS- Asthma Clinic- F/U with Karla Floresen COTTON DISPATCHER 06/05/2019 Last Documented On 0 7:04PM ; [facility] Occasional asthma CPS Med Review with Karla Sandra en COTTON DISPATCHER 04/23/2019 Last Documented On 9 4:01PM ; [facility] Overweight CPS Med Review with Karla Amber COTTON DISPATCHER 04/23/2019 Last Documented On 9 4:01PM ; [facility] Z68.27 - Body mass index (BM I) 27.0-27.9 adult CPS Med Review with Karla Amber COTTON DISPATCHER 04/23/2019 Last Documented On 9 4:01PM ; [facility] Acute pharyngitis Medical Established Patient wi th Brandy Serranoer COTTON DISPATCHER 04/15/2019 Last Documented On 9 12:31PM ; [facility] Asthmatic bronchitis with ac wales exacerbation Medical Established Patient with Brandy Warren COTTON DISPATCHER 04/15/2019 Last Documented On 9 12:31PM ; [facility] Fagerstrom Score was two Medical Established Pat ient with Brandy Warren COTTON DISPATCHER 04/15/2019 Last Documented On 9 12:31PM ; [facility] PHQ-9: total score was three 04/15/2019 Medical Established Patient with Brandy Warren COTTON DISPATCHER 04/15/2019 Last Documented On 9 12:31PM ; [facility] Body mass index Medical Established Patient with Karlanaveed Floresen COTTON DISPATCHER 03/05/2019 Last Documented On 9 10:27AM ; [facility] Diabetes Risk Test Score was three score Medical Established Patient with Karla Amber COTTON DISPATCHER 03/05/2019 Last Documented On 9 10:27AM ; [facility] Overweight Medical Established Patient with Karla Amber COTTON DISPATCHER 03/05/2019 Last Documented On 9 10:27AM ; [facility] Z68.28 - Body mass index (BM I) 28.0-28.9, adult Medical Established Patient with Karla Amber COTTON DISPATCHER 12/22/2018 Last Documented On 9 10:32AM ; [facility] Assess routine adult history and physical (18 - 64 yrs) Medical Established Patient with Karla Amber COTTON DISPATCHER 11/06/2018 Last Documented On 9 2:26PM ; [facility] Overweight Medical Established Patient with Karla Amber COTTON DISPATCHER 11/06/2018 Last Documented On 9 2:26PM ; [facility] Z68.28 - Body mass index (BM I) 28.0-28.9, adult Medical Established Patient with Karla Amber COTTON DISPATCHER 11/06/2018 Last Documented On 9 2:26PM ; [facility] Assess dysphagia Medical Established Patient wit h Karla Amber COTTON DISPATCHER 09/11/2018 Last Documented On 9 10:53AM ; [facility] Assess routine adult history and physical (18 - 64 yrs) Medical Established Patient with Karla Amber COTTON DISPATCHER 09/11/2018 Last Documented On 9 10:53AM ; [facility] Assess primary insomnia with sleep apnea Medical Established Patient with Karla Amber COTTON DISPATCHER 09/04/2018 Last Documented On 9 2:23PM ; [facility] Assess routine adult history and physical (18 - 64 yrs) Medical Established Patient with Karla Amber COTTON DISPATCHER 09/04/2018 Last Documented On 9 2:23PM ; [facility] Overweight Medical Established Patient with Karla Amber COTTON DISPATCHER 09/04/2018 Last Documented On 9 2:23PM ; [facility] Z68.29 - Body mass index (BM I) 29.0-29.9, adult Medical Established Patient with Karla Amber COTTON DISPATCHER 09/04/2018 Last Documented On 9 2:23PM ; [facility] Assess vaginal candidiasis Medical Estab lished Patient with Karla Amber COTTON DISPATCHER 07/31/2018 Last Documented On 9 2:12PM ; [facility] Work Phone: [phone] 220-169905-03-2024 Progress note* Progress note Date Encounter Last Documented by 10/04/2023 Medical Established Patient Last documented on 10/04/2023; 6:30 PM, Karla Clark COTTON DISPATCHER; [facility] Active Problems & Conditions - J45.909 - Asthma Occasional - Asthma - F31.9 - Bipolar Disorder Nos - Bipolar disorder, unspecified - J44.9 - Chronic Obstructive Pulmonary Disease - F32.9 - Major depressive disorder, single episode, unspecified - Depression - Schizoaffective Disorder Chief Complaint The Chief Complaint is: Wellness visit She states her chest hurts from coughing and SOB, thinks she might have pneumonia for one week. Had a thyroid gland removed in Jul 2023 at [facility] Had lesion removed from nose and going to have another procedure done at another time. She is not sure when. She states she started with parkinson's about 2 weeks ago or its a reaction to her medications Would like pneumonia vaccine and shingles vaccine. Referred Here No prior encounters. History of Present Illness Gail Almeida is a 67 year old female. - Allergy list reviewed - Reviewed Medications Presents for general follow up , had recent labs Current Medication - Acetaminophen ER 650 MG [...] 0 days, 0 refills - Calcium 600+D Plus Minerals 600-400 MG-UNIT Oral Tablet take 1 tablet by mouth twice daily, 30 days, 11 refills - cloNIDine HCl 0.1 MG Oral Tablet give one by mouth once daily, 0 days, 0 refills - Colace 100 MG Oral Capsule take 1 capsule by mouth once daily at bedtime, 30 days, 11 refills - Famotidine 20 MG Oral Tablet TAKE 1 TABLET BY MOUTH TWICE A DAY, 30 days, 11 refills - Fluticasone Propionate 50 MCG/ACT Nasal Suspension INHALE 1 SPRAY INTO EACH NOSTRIL TWICE A DAY, 30 days, 11 refills - Folic Acid 800 MCG Oral Tablet TAKE 1 TABLET BY MOUTH ONCE EVERY DAY, 30 days, 11 refills - Levothyroxine Sodium 112 MCG Oral Tablet once daily, 0 days, 0 refills - [place] Carbonate 150 MG Oral Capsule one capsule by mouth twice daily, 30 days, 0 refills - Loratadine 10 MG Oral Tablet take 1 tablet by mouth once daily, 30 days, 11 refills - Mobic 15 MG Oral Tablet take 1 tablet by mouth once daily (no other nsaids), 30 days, 11 refills - OLANZapine 15 MG Oral Tablet once daily Kentrell Hurley, 30 days, 0 refills - OLANZapine 5 MG Oral Tablet once daily Kentrell Hurley, 15 days, 0 refills - Polyethylene Glycol 3350 17 GM/SCOOP Oral Powder 17GM= 1CAP DISSOLVE IN 4-8 OZ LIQUID BEFORE ADMINISTRATION BY MOUTH EVERY DAY, 30 days, 11 refills - QC Vitamin B12 500 MCG Oral Tablet TAKE 1 TABLET BY MOUTH ONCE EVERY DAY ALONG WITH FOLIC ACID, 30 days, 11 refills - QUEtiapine Fumarate 25 MG Oral Tablet take 1/2 tablet by mouth 2 times daily, 30 days, 0 refills - QUEtiapine Fumarate 400 MG Oral Tablet take one tablet by mouth daily at bedtime, 30 days, 0 refills - RisperDAL Consta 25 MG Intramuscular Suspension Reconstituted ER inject 2 milliliters IM every 2 weeks, 0 days, 0 refills - Topiramate 25 MG Oral Tablet take 1 tablet by mouth once daily at bedtime, 30 days, 11 refills Past Medical/Surgical History Reported: Patient gave verbal consent for telehealth. Medical: No previous hospitalizations. Partners sexually transmitted infection status not known. Immunization History: Recent immunization for flu. 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 Not planning a in the next year. Diagnoses: Abnormal electrocardiogram. Asthma. Bipolar disorder NOS Depression Heart Attack 03/2021 [facility]. Surgical: - General surgery right shoulder ORIF 09/13/22 - Hysterectomy Social History Environmental Exposure: Secondhand cigarette smoke exposure. Tobacco use: Cigarette smoking Light (1-10/day) 3-4 cigarettes day. Not using electronic cigarettes/vaping. Sexual: Sexual [...] family Maternal: Breast neoplasm Review Of Systems Head: No head symptoms. [...] neurological symptoms. Psychological: No psychological symptoms. Skin: Skin symptoms well healing scar to neck and tip of nose. Physical Findings - Vitals taken 10/04/2023 01:22 pm BP-Sitting L142/88 mmHg BP Cuff SizeRegular Pulse Rate-Oejajya66 bpm Uiwoiw56 in Opylxi070 lbs Body Mass Index25.2 kg/m2 Body Surface Area1.7 m2 Oxygen Fryiztobli06 % - Vitals taken 10/04/2023 01:33 pm BP-Sitting L148/93 mmHg BP Cuff SizeLarge - Vitals taken 10/04/2023 02:17 pm manual cuff BP-Sitting L134/88 mmHg Vital Signs: - Systolic blood pressure 130 - 139 mmHg. - Diastolic blood pressure 80-89 mmHg. General Appearance: - Awake. - Alert. - [...] Weakness: - No neck weakness was seen. Cervical Mass: - No cervical mass was [...] Ear: - Normal. Tympanic Membrane: - Examined. Hearing Exam: - No hearing abnormalities. Right Ear: - [...] Mucosal: - Pharynx had no mucosal abnormalities. Lymph Nodes: - No adenopathy. Lungs: - Respiration rhythm and depth was normal. - Clear to auscultation. Cardiovascular: Heart Rate And Rhythm: - Normal. Heart Sounds: - Normal. Abdomen: Visual Inspection: - Abdomen was normal on visual inspection. Musculoskeletal System: General/bilateral: - Normal movement of all extremities. Neurological: - Oriented to time, place, and person. Skin: - General appearance was normal. Tests Laboratory-based Chemistry: Fecal Analysis: Cologuard Requested. Assessment - Z68.25 - Body mass index [BMI] 25.0-25.9, adult - Z13.1 - Encounter for screening for diabetes mellitus - Z23 - Encounter for immunization - Z12.11 - Encounter for screening for malignant neoplasm of colon - F17.210 - Nicotine dependence, cigarettes, uncomplicated Test Conclusions Administered CAT Total Score 18 10/04/2023. Therapy - Developmental/Behavioral Screening & Testing - PHQ9. - SBIRT Full Screen Neg. - Immunization administration, by injection, one vaccine. Vaccinations - PCV (Prevnar-20) Dose #1 Status: Administered Date: 10/04/2023 - Received dose of Reported: Patient has received the COVID Vaccine - Received dose of pneumococcal conjugate vaccine, 20-valent, IM use Counseling/Education - Wishing to stop smoking Discussed Quit Line resources - Discussed nutritional needs teach healthy choices including fruits and vegetables - Patient education about a proper diet - Discussed concerns about exercise: promote physical activity Plan StartCited- Encounter for screening for malignant neoplasm of colon Outside Labs/Cologuard: Cologuard EndCited StartCited- Other Follow-up Appointment 6 month gen check up EndCited We will call you when able to find out whoch shingles vaccine you had and if any further vaccination is needed , pharm is closed where she got it and pt did not want to wait r/t her ride is here waiting. Advance Directives - Advance Care Planning Care Team - Karla Clark CNP Health Reminders - Assess BMI satisfied 10/04/2023. - Assess Tobacco Use satisfied 10/04/2023. - Diabetes Risk Screening Needed satisfied 10/04/2023. - Follow Up Plan BMI Management satisfied 10/04/2023. - BENOIT-2 satisfied 10/04/2023. - PHQ9 / PHQA satisfied 10/04/2023. - SBIRT satisfied 10/04/2023. - Smoking & Tobacco Cessation Intervention and Counseling satisfied 10/04/2023. User Defined 1 No I have lots of energy was three 3. No I have no phlegm (mucus) in my chest at all was three 3. No My chest does not feel tight at all was four 4. No I never cough was three 3, no When I walk up a hill or flight of stairs I am not breathless was 0 0, and no I am confident leaving my home despite my lung condition was 0 0. Not afraid of someone you have a relationship with No. Has lack of transportation kept patient from medical appointments or from getting medications: No and lack of transportation has kept patient from beneficial non-medical activities: No. Not planning a in the next year. She has not had 4 or more drinks in a day within the past year. Do you feel stress - tense, restless, nervous, or anxious, or unable to sleep at night because your mind is troubled all the time - these days? Not at all, Yes (1 point) [Pre-DM]: Yes, patient has been diagnosed with high blood pressure, No (0 points) [Pre-DM]: Patient has not been diagnosed with gestational diabetes or given to a baby weighing 9 pounds or more, No (0 points) [Pre-DM]: No, mother, father, sister, or brother does not have DM, and Yes (0 point) [Pre-DM]: Yes, physically active. No misuse of prescription only drugs and not illicit. No I am not limited doing any [...] needed clothing: No, unable to get needed early childhood teacher assistant: No, unable to get needed phone: No, unable to get needed utilities: No, unable to get needed Medicine or Health Care: No, and In the past year, patient or family members in household were unable to get needed food: No. How often does patient see or talk to people that that he/she cares about and feels close to: 1 or 2 times a week and Woman (0 Points) [Pre-DM]. No I sleep soundly was five 5. BENOIT-2 score was 0 10/04/2023, BENOIT-7 score [BENOIT-7] Feeling nervous, anxious or on edge? + 0 pt : Not at all, [BENOIT-7] Not being able to stop or control worrying? + 0 pt : Not at all, Patient Health Questionnaire 9-Item total score was 0 10/04/2023, [PHQ-9-1] Little interest or pleasure in doing [...] 60 years or older (3 points) [Pre-DM]. [facility]05-03-2024 Instructions Includes: Instructions for all patient encounters Instructions to patient Intervention and counseling on cessation of tobacco use, 3-10 minutes Discussed medication and nicotine replacement for tobacco cessation Last Documented On 3 8:54AM ; [facility] Intervention and counseling on cessation of tobacco use, 3-10 minutes Discussed medication and nicotine replacement for tobacco cessation Last Documented On 2 1:56PM ; [facility] Intervention and counseling on cessation of tobacco use, 3-10 minutes Last Documented On 0 2:07PM ; [facility] Return to the clinic if cond ition worsens or new symptoms arise Last Documented On 9 1:59PM ; [facility] Intervention and counseling on cessation of tobacco use, 3-10 minutes Last Documented On 9 10:39AM ; [facility] Education and Decision Aids were provided during visit for: Discussed nutritional needs teach healthy choices including fruits and vegetables Last Documented On 4 1:26PM ; [facility] Patient education about a pr oper diet Last Documented On 4 1:26PM ; [facility] Discussed concerns about exe rcise : promote physical activity Last Documented On 4 1:26PM ; [facility] Discussed nutritional needs teach healthy choices including fruits and vegetables Last Documented On 3 10:55AM ; [facility] Patient education about a pr oper diet Last Documented On 3 10:55AM ; [facility] Discussed concerns about exe rcise : promote physical activity Last Documented On 3 10:55AM ; [facility] Discussed nutritional needs teach healthy choices including fruits and vegetables Last Documented On 3 9:37AM ; [facility] Patient education about a pr oper diet Last Documented On 3 9:37AM ; [facility] Discussed concerns about exe rcise : promote physical activity Last Documented On 3 9:37AM ; [facility] Not requesting contraception Last Documented On 3 9:37AM ; [facility] Discussed nutritional needs teach healthy choices including fruits and vegetables Last Documented On 3 9:20AM ; [facility] Patient education about a pr oper diet Last Documented On 3 9:20AM ; [facility] Discussed concerns about exe rcise : promote physical activity Last Documented On 3 9:20AM ; [facility] Discussed nutritional needs teach healthy choices including fruits and vegetables Last Documented On 3 2:02PM ; [facility] Patient education about a pr oper diet Last Documented On 3 2:02PM ; [facility] Discussed concerns about exe rcise : promote physical activity Last Documented On 3 2:02PM ; [facility] Discussed nutritional needs teach healthy choices including fruits and vegetables Last Documented On 3 8:32AM ; [facility] Patient education about a pr oper diet Last Documented On 3 8:32AM ; [facility] Discussed concerns about exe rcise : promote physical activity Last Documented On 3 8:32AM ; [facility] Discussed nutritional needs teach healthy choices including fruits and vegetables Last Documented On 3 11:28AM ; [facility] Patient education about a pr oper diet Last Documented On 3 11:28AM ; [facility] Discussed concerns about exe rcise : promote physical activity Last Documented On 3 11:28AM ; [facility] Discussed nutritional needs teach healthy choices including fruits and vegetables Last Documented On 2 2:01PM ; [facility] Patient education about a pr oper diet Last Documented On 2 2:01PM ; [facility] Discussed concerns about exe rcise : promote physical activity Last Documented On 2 2:01PM ; [facility] Discussed nutritional needs teach healthy choices including fruits and vegetables Last Documented On 2 2:11PM ; [facility] Patient education about a pr oper diet Last Documented On 2 2:11PM ; [facility] Discussed concerns about exe rcise : promote physical activity Last Documented On 2 2:11PM ; [facility] Discussed current self-care methods/coping skills. ~Validated and normalized pt's feelings while assisting patient process recent events. ~Discussed ongoing counseling. ~Discussed lifestyle changes to address chronic illness. ~Supported patient's personal health goals ~wordfinds. walk, read, eat, enjoy my best friesnd Last Documented On 2 5:54PM ; [facility] Discussed nutritional needs teach healthy choices including fruits and vegetables Last Documented On 2 10:04AM ; [facility] Patient education about a pr oper diet Last Documented On 2 10:04AM ; [facility] Discussed concerns about exe rcise : promote physical activity Last Documented On 2 10:04AM ; [facility] Discussed nutritional needs teach healthy choices including fruits and vegetables Last Documented On 2 1:25PM ; [facility] Patient education about a pr oper diet Last Documented On 2 1:25PM ; [facility] Discussed concerns about exe rcise : promote physical activity Last Documented On 2 1:25PM ; [facility] Discussed nutritional needs teach healthy choices including fruits and vegetables Last Documented On 1 10:08AM ; [facility] Patient education about a pr oper diet Last Documented On 1 10:08AM ; [facility] Discussed concerns about exe rcise : promote physical activity Last Documented On 1 10:08AM ; [facility] Discussed nutritional needs teach healthy choices including fruits and vegetables Last Documented On 1 1:12PM ; [facility] Patient education about a pr oper diet Last Documented On 1 1:12PM ; [facility] Patient education about a pr oper diet Last Documented On 1 1:30PM ; [facility] Patient education about meal planning Last Documented On 1 1:30PM ; [facility] Education about changing eat ing habits Last Documented On 1 1:30PM ; [facility] Patient education about high fiber diet Last Documented On 1 1:30PM ; [facility] Patient education about low fat diet Last Documented On 1 1:30PM ; [facility] Patient education about low cholesterol diet Last Documented On 1 1:30PM ; [facility] Patient education about low carbohydrate diet Last Documented On 1 1:30PM ; [facility] Patient education about high protein diet Last Documented On 1 1:30PM ; [facility] Discussed concerns about exe rcise : promote physical activity Last Documented On 1 1:12PM ; [facility] Education/counseling conduct ed by pharmacist Last Documented On 0 1:39PM ; [facility] Vaccination counseling Last Documented On 0 1:39PM ; [facility] Discussed concerns about exe rcise : promote physical activity Last Documented On 0 2:16PM ; [facility] Patient goals decrease short ness of breath episodes Last Documented On 0 2:11PM ; [facility] Patient states that she uses her rescue [...] recently Last Documented On 0 2:24PM ; [facility] Patient education about a pr oper diet Last Documented On 0 2:54PM ; [facility] Patient education about meal planning Last Documented On 0 2:54PM ; [facility] Education about changing eat ing habits Last Documented On 0 2:54PM ; [facility] Patient education about high fiber diet Last Documented On 0 2:54PM ; [facility] Patient education about low fat diet Last Documented On 0 2:54PM ; [facility] Patient education about low cholesterol diet Last Documented On 0 2:54PM ; [facility] Patient education about low carbohydrate diet Last Documented On 0 2:54PM ; [facility] Patient education about high protein diet Last Documented On 0 2:54PM ; [facility] Discussed nutritional needs teach healthy choices including fruits and vegetables Last Documented On 0 11:11AM ; [facility] Patient education about a pr oper diet Last Documented On 0 11:11AM ; [facility] Patient education about a pr oper diet Last Documented On 0 11:28AM ; [facility] Patient education about meal planning Last Documented On 0 11:28AM ; [facility] Education about changing eat ing habits Last Documented On 0 11:28AM ; [facility] Patient education about high fiber diet Last Documented On 0 11:28AM ; [facility] Patient education about low fat diet Last Documented On 0 11:28AM ; [facility] Patient education about low cholesterol diet Last Documented On 0 11:28AM ; [facility] Patient education about low carbohydrate diet Last Documented On 0 11:28AM ; [facility] Patient education about high protein diet Last Documented On 0 11:28AM ; [facility] Discussed concerns about exe rcise : promote physical activity Last Documented On 0 11:11AM ; [facility] Education/counseling conduct ed by pharmacist Last Documented On 0 1:41PM ; [facility] Patient states that she lonnie gonzalez has [...] own Last Documented On 0 2:08PM ; [facility] Education/counseling conduct ed by pharmacist Last Documented On 9 1:12PM ; [facility] Patient states that she lonnie gonzalez has issues with her inhaler with the spacer. Patient did not bring in inhaler or spacer. Patient was told to bring in inhalers at next scheduled visit for pharmacist to assess inhalation technique. Patient is agreeable Last Documented On 9 1:13PM ; [facility] Patient goals Start using ch deon to help with inhaling dulera Last Documented On 9 2:40PM ; [facility] Patient states that she is g etting [...] vaccines Last Documented On 9 2:51PM ; [facility] Discussed nutritional needs teach healthy choices including fruits and vegetables Last Documented On 9 9:29AM ; [facility] Patient education about a pr oper diet Last Documented On 9 9:29AM ; [facility] Discussed concerns about exe rcise : promote physical activity Last Documented On 9 9:29AM ; [facility] Work Phone: 1([phone] 327-190805-02-2024 Instructions Includes: Instructions for all patient encounters Instructions to patient Intervention and counseling on cessation of tobacco use, 3-10 minutes Discussed medication and nicotine replacement for tobacco cessation Last Documented On 3 8:54AM ; [facility] Intervention and counseling on cessation of tobacco use, 3-10 minutes Discussed medication and nicotine replacement for tobacco cessation Last Documented On 2 1:56PM ; [facility] Intervention and counseling on cessation of tobacco use, 3-10 minutes Last Documented On 0 2:07PM ; [facility] Return to the clinic if cond ition worsens or new symptoms arise Last Documented On 9 1:59PM ; [facility] Intervention and counseling on cessation of tobacco use, 3-10 minutes Last Documented On 9 10:39AM ; [facility] Education and Decision Aids were provided during visit for: Discussed nutritional needs teach healthy choices including fruits and vegetables Last Documented On 3 10:55AM ; [facility] Patient education about a pr oper diet Last Documented On 3 10:55AM ; [facility] Discussed concerns about exe rcise : promote physical activity Last Documented On 3 10:55AM ; [facility] Discussed nutritional needs teach healthy choices including fruits and vegetables Last Documented On 3 9:37AM ; [facility] Patient education about a pr oper diet Last Documented On 3 9:37AM ; [facility] Discussed concerns about exe rcise : promote physical activity Last Documented On 3 9:37AM ; [facility] Not requesting contraception Last Documented On 3 9:37AM ; [facility] Discussed nutritional needs teach healthy choices including fruits and vegetables Last Documented On 3 9:20AM ; [facility] Patient education about a pr oper diet Last Documented On 3 9:20AM ; [facility] Discussed concerns about exe rcise : promote physical activity Last Documented On 3 9:20AM ; [facility] Discussed nutritional needs teach healthy choices including fruits and vegetables Last Documented On 3 2:02PM ; [facility] Patient education about a pr oper diet Last Documented On 3 2:02PM ; [facility] Discussed concerns about exe rcise : promote physical activity Last Documented On 3 2:02PM ; [facility] Discussed nutritional needs teach healthy choices including fruits and vegetables Last Documented On 3 8:32AM ; [facility] Patient education about a pr oper diet Last Documented On 3 8:32AM ; [facility] Discussed concerns about exe rcise : promote physical activity Last Documented On 3 8:32AM ; [facility] Discussed nutritional needs teach healthy choices including fruits and vegetables Last Documented On 3 11:28AM ; [facility] Patient education about a pr oper diet Last Documented On 3 11:28AM ; [facility] Discussed concerns about exe rcise : promote physical activity Last Documented On 3 11:28AM ; [facility] Discussed nutritional needs teach healthy choices including fruits and vegetables Last Documented On 2 2:01PM ; [facility] Patient education about a pr oper diet Last Documented On 2 2:01PM ; [facility] Discussed concerns about exe rcise : promote physical activity Last Documented On 2 2:01PM ; [facility] Discussed nutritional needs teach healthy choices including fruits and vegetables Last Documented On 2 2:11PM ; [facility] Patient education about a pr oper diet Last Documented On 2 2:11PM ; [facility] Discussed concerns about exe rcise : promote physical activity Last Documented On 2 2:11PM ; [facility] Discussed current self-care methods/coping skills. ~Validated and normalized pt's feelings while assisting patient process recent events. ~Discussed ongoing counseling. ~Discussed lifestyle changes to address chronic illness. ~Supported patient's personal health goals ~wordfinds. walk, read, eat, enjoy my best friesnd Last Documented On 2 5:54PM ; [facility] Discussed nutritional needs teach healthy choices including fruits and vegetables Last Documented On 2 10:04AM ; [facility] Patient education about a pr oper diet Last Documented On 2 10:04AM ; [facility] Discussed concerns about exe rcise : promote physical activity Last Documented On 2 10:04AM ; [facility] Discussed nutritional needs teach healthy choices including fruits and vegetables Last Documented On 2 1:25PM ; [facility] Patient education about a pr oper diet Last Documented On 2 1:25PM ; [facility] Discussed concerns about exe rcise : promote physical activity Last Documented On 2 1:25PM ; [facility] Discussed nutritional needs teach healthy choices including fruits and vegetables Last Documented On 1 10:08AM ; [facility] Patient education about a pr oper diet Last Documented On 1 10:08AM ; [facility] Discussed concerns about exe rcise : promote physical activity Last Documented On 1 10:08AM ; [facility] Discussed nutritional needs teach healthy choices including fruits and vegetables Last Documented On 1 1:12PM ; [facility] Patient education about a pr oper diet Last Documented On 1 1:12PM ; [facility] Patient education about a pr oper diet Last Documented On 1 1:30PM ; [facility] Patient education about meal planning Last Documented On 1 1:30PM ; [facility] Education about changing eat ing habits Last Documented On 1 1:30PM ; [facility] Patient education about high fiber diet Last Documented On 1 1:30PM ; [facility] Patient education about low fat diet Last Documented On 1 1:30PM ; [facility] Patient education about low cholesterol diet Last Documented On 1 1:30PM ; [facility] Patient education about low carbohydrate diet Last Documented On 1 1:30PM ; [facility] Patient education about high protein diet Last Documented On 1 1:30PM ; [facility] Discussed concerns about exe rcise : promote physical activity Last Documented On 1 1:12PM ; [facility] Education/counseling conduct ed by pharmacist Last Documented On 0 1:39PM ; [facility] Vaccination counseling Last Documented On 0 1:39PM ; [facility] Discussed concerns about exe rcise : promote physical activity Last Documented On 0 2:16PM ; [facility] Patient goals decrease short ness of breath episodes Last Documented On 0 2:11PM ; [facility] Patient states that she uses her rescue [...] recently Last Documented On 0 2:24PM ; [facility] Patient education about a pr oper diet Last Documented On 0 2:54PM ; [facility] Patient education about meal planning Last Documented On 0 2:54PM ; [facility] Education about changing eat ing habits Last Documented On 0 2:54PM ; [facility] Patient education about high fiber diet Last Documented On 0 2:54PM ; [facility] Patient education about low fat diet Last Documented On 0 2:54PM ; [facility] Patient education about low cholesterol diet Last Documented On 0 2:54PM ; [facility] Patient education about low carbohydrate diet Last Documented On 0 2:54PM ; [facility] Patient education about high protein diet Last Documented On 0 2:54PM ; [facility] Discussed nutritional needs teach healthy choices including fruits and vegetables Last Documented On 0 11:11AM ; [facility] Patient education about a pr oper diet Last Documented On 0 11:11AM ; [facility] Patient education about a pr oper diet Last Documented On 0 11:28AM ; [facility] Patient education about meal planning Last Documented On 0 11:28AM ; [facility] Education about changing eat ing habits Last Documented On 0 11:28AM ; [facility] Patient education about high fiber diet Last Documented On 0 11:28AM ; [facility] Patient education about low fat diet Last Documented On 0 11:28AM ; [facility] Patient education about low cholesterol diet Last Documented On 0 11:28AM ; [facility] Patient education about low carbohydrate diet Last Documented On 0 11:28AM ; [facility] Patient education about high protein diet Last Documented On 0 11:28AM ; [facility] Discussed concerns about exe rcise : promote physical activity Last Documented On 0 11:11AM ; [facility] Education/counseling conduct ed by pharmacist Last Documented On 0 1:41PM ; [facility] Patient states that she lonnie gonzalez has [...] own Last Documented On 0 2:08PM ; [facility] Education/counseling conduct ed by pharmacist Last Documented On 9 1:12PM ; [facility] Patient states that she lonnie gonzalez has issues with her inhaler with the spacer. Patient did not bring in inhaler or spacer. Patient was told to bring in inhalers at next scheduled visit for pharmacist to assess inhalation technique. Patient is agreeable Last Documented On 9 1:13PM ; [facility] Patient goals Start using ch deon to help with inhaling dulera Last Documented On 9 2:40PM ; [facility] Patient states that she is g etting [...] vaccines Last Documented On 9 2:51PM ; [facility] Discussed nutritional needs teach healthy choices including fruits and vegetables Last Documented On 9 9:29AM ; [facility] Patient education about a pr oper diet Last Documented On 9 9:29AM ; [facility] Discussed concerns about exe rcise : promote physical activity Last Documented On 9 9:29AM ; [facility] Work Phone: [phone]) 842-623505-01-2024 Progress note* Progress note Date Encounter Last Documented by 10/02/2023 Chart Update Last documented on 10/03/2023; 8:39 AM, Karla Clark CNP; [facility] Active Problems & Conditions - J20.9 [...] 0 days, 0 refills - Calcium 600+D Plus Minerals 600-400 MG-UNIT Oral Tablet take 1 tablet by mouth twice daily, 30 days, 11 refills - cloNIDine HCl 0.1 MG Oral Tablet give one by mouth once daily, 0 days, 0 refills - Colace 100 MG Oral Capsule take 1 capsule by mouth once daily at bedtime, 30 days, 11 refills - Famotidine 20 MG Oral Tablet TAKE 1 TABLET BY MOUTH TWICE A DAY, 30 days, 11 refills - Fluticasone Propionate 50 MCG/ACT Nasal Suspension INHALE 1 SPRAY INTO EACH NOSTRIL TWICE A DAY, 30 days, 11 refills - Folic Acid 800 MCG Oral Tablet TAKE 1 TABLET BY MOUTH ONCE EVERY DAY, 30 days, 11 refills - Levothyroxine Sodium 112 MCG Oral Tablet once daily, 0 days, 0 refills - [place] Carbonate 150 MG Oral Capsule one capsule by mouth twice daily, 30 days, 0 refills - Loratadine 10 MG Oral Tablet take 1 tablet by mouth once daily, 30 days, 11 refills - Mobic 15 MG Oral Tablet take 1 tablet by mouth once daily (no other nsaids), 30 days, 11 refills - OLANZapine 5 MG Oral Tablet take one tablet by mouth two times dailyas needed for agitation/anxiety, 15 days, 0 refills - Polyethylene Glycol 3350 17 GM/SCOOP Oral Powder 17GM= 1CAP DISSOLVE IN 4-8 OZ LIQUID BEFORE ADMINISTRATION BY MOUTH EVERY DAY, 30 days, 11 refills - QC Vitamin B12 500 MCG Oral Tablet TAKE 1 TABLET BY MOUTH ONCE EVERY DAY ALONG WITH FOLIC ACID, 30 days, 11 refills - QUEtiapine Fumarate 25 MG Oral Tablet take 1/2 tablet by mouth 2 times daily, 30 days, 0 refills - QUEtiapine Fumarate 400 MG Oral Tablet take one tablet by mouth daily at bedtime, 30 days, 0 refills - RisperDAL Consta 25 MG Intramuscular Suspension Reconstituted ER inject 2 milliliters IM every 2 weeks, 0 days, 0 refills - Topiramate 25 MG Oral Tablet take 1 tablet by mouth once daily at bedtime, 30 days, 11 refills Past Medical/Surgical History Reported: Patient gave verbal consent for telehealth. Medical: No previous hospitalizations. Partners sexually transmitted infection status not known. Immunization History: Recent immunization for flu. 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 Not planning a in the next year. Diagnoses: Abnormal electrocardiogram. Asthma. Bipolar disorder NOS Depression Heart Attack 03/2021 [facility]. Surgical: - General surgery right shoulder [...] history in nuclear family Maternal: Breast neoplasm Previous Tests Imaging: Mammogram: A bilateral screening mammogram was performed 05/28/2024. Advance Directives - Advance Care Planning Care Team - Karla Clark CNP Health Reminders - Mammogram Needed satisfied 05/28/2024. [facility]04-26-2024 NoteHNO ID: [id number] Author: YANDEL DANIEL MD Service: ? 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 Today, the patient reports she is doing well without questions or concerns. Tolerating a regular diet, maintaining her weight, no voice changes. Current Outpatient Medications Medication Sig Dispense Refill calcium carbonate (OS-RL 500) 500 mg calcium [...] by mouth every 12 hours as needed. xkzgrg-cihrzawv-rmztpoe (ENZADYNE) 9,000-112,500- 112,500 unit capsule Take 1 [...] Overall: no obvious scars, lesions or masses Parotid and submandibular glands: no masses or tenderness Facial strength: normal and equal bilaterally Ear, Nose, Mouth AND Throat - Ears: both left and right external auditory canals and TM's are normal, no external deformities Nasal exam: mucosa is pink, septum is midline, visible turbinates are normal on anterior rhinoscopy Oral Cavity and oropharynx: mucosa, hard and soft palates, tongue, tonsil area, posterior pharyngeal wall, lips and gums are without lesions Neck: appears symmetric, and on palpation is without masses or lymphadenopathy Thyroid: no asymmetry, to masses or lesions, well healed midline scar Neuro: CN III - CN XII grossly intact IMAGING/PATHOLOGY: Surgical Pathology 06/18/2023: FINAL DIAGNOSIS A,B. 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 - No parathyroid glands or lymph nodes were identified. - Negative for malignancy. 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 She is doing well. PLAN AND RECOMMENDATIONS: Follow-up as needed Lulu Reyes MD for the service of Yandel Daniel MD September 28, 2023 I participated in the history and physical exam of Gail Almeida. I discussed the management of Gail Almeida with the resident. I reviewed the resident's note and agree with the documented findings and plan of care. Yandel Daniel, [facility]04-26-2024 Nurse Note* Fabienne Deleon OCCA - 09/27/2023 9:29 AM EDT Tobacco Use: .25 packs/day, for 40 years. Types: Cigarettes Was smoking cessation packet given? Patient Declined Was a referral initiated?Patient declined. [facility]04-26-2024 Nurse Note* Fabienne Deleon OCCA - 09/27/2023 9:29 AM EDT Tobacco Use: .25 packs/day, for 40 years. Types: Cigarettes Was smoking cessation packet given? Patient Declined Was a referral initiated?Patient declined. 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 Today, the patient reports she is doing well without questions or concerns. Tolerating a regular diet, maintaining her weight, no voice changes. Current Outpatient Medications Medication Sig Dispense Refill calcium carbonate (OS-RL 500) 500 mg calcium [...] mcg/actuation inhaler Inhale 1 Puff as instructed asneeded. OYSTER SHELL CALCIUM-VITAMIN D 500 mg-5 mcg (200 unit) per tablet WIXELA INHUB 250-50 mcg/dose inhaler Inhale 1 Puff as instructed two times a day. MUCUS DM 30-600 mg per tablet Take 1 tablet by mouth every 12 hours as needed. gvlpmw-letqgtwi-sgxjncz (ENZADYNE) 9,000-112,500- 112,500 unit capsule Take 1 [...] with a normal voice without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 normal, well-groomed Mental Status: Grossly normal Mood: Anxious Affect: Mood congruent Speech and Movement: Speech clear. Speech and movement normal Attitude: Cooperative Thought Process: Linear Thought Content: Reports depression and anxiety. Denies SI, HI, hallucination Insight: Poor Judgment: [facility] History Localized swelling, mass and lump, neck Vision loss Diabetes mellitus type 2, controlled, without complications Parkinson disease Schizoaffective disorder RBBB Chronic bronchitis Smoker COPD (chronic obstructive pulmonary disease) Asthma Anxiety Depression Bipolar disorder Migraine Back pain Arthritis Sinus drainage chronic GERD (gastroesophageal reflux disease) Thyroid lesion Heart attack Surgical History H/O thyroidectomy Hx of breast lump removal rt-benign History of tubal ligation History of hysterectomy Family History Father H/O heart artery stent CAD (coronary artery disease) Mother Recurrent strokes Brother CHF (congestive heart failure) Muscular dystrophy Social History Smoking Status: Current every day smoker Tobacco Type: cigarettes Substance Use Type: None Social History Comments: alone in apartment Meds Medications and Allergies Allergies amphetamine Allergy (Unknown, Verified 08/15/23 15:14) pain aspirin Allergy (Unknown, Verified 08/15/23 15:14) shock , dizzy Barbiturates Allergy (Unknown, Verified 08/15/23 15:14) Unknown Reaction codeine Allergy (Unknown, Verified 08/15/23 15:14) Unknown Reaction, unknown fluoxetine Allergy (Unknown, Verified 08/15/23 15:14) Unknown Reaction, feel wacked out ibuprofen Allergy (Unknown, Verified 08/15/23 15:14) Unknown Reaction meperidine Allergy (Unknown, Verified 08/15/23 15:14) Unknown Reaction penicillin G Allergy (Unknown, Verified 08/15/23 15:14) anaphylaxis Sulfa (Sulfonamide Antibiotics) Allergy (Unknown, Verified 08/15/23 15:14) nausea; strange odor , odor producing Penicillins Allergy (Verified 08/15/23 15:14) Swelling of Lip/Tongue/Throat sulfamethoxazole [From Bactrim] Allergy (Verified 08/15/23 15:14) Unknown Reaction trimethoprim [From Bactrim] Allergy (Verified 08/15/23 15:14) Unknown Reaction trazodone Adverse Reaction (Verified 08/15/23 22:54) restlessness Home Medications amantadine HCl 100 mg tablet 100 mg PO BID 09/11/22 [History Confirmed 08/15/23] benztropine 0.5 mg tablet 0.5 mg PO BID 09/11/22 [History Confirmed 08/15/23] clonidine HCl 0.1 mg tablet 0.1 mg PO DAILY 09/11/22 [History Confirmed 08/15/23] famotidine 20 mg tablet 20 mg PO BID 09/11/22 [History Confirmed 08/15/23] lithium carbonate 150 mg capsule 150 mg PO BID 09/11/22 [History Confirmed 08/15/23] loratadine 10 mg tablet 10 mg PO DAILY 09/11/22 [History Confirmed 08/15/23] meloxicam 15 mg tablet 15 mg PO DAILY 09/11/22 [History Confirmed 08/15/23] topiramate 25 mg tablet 25 mg PO QHS 09/11/22 [History Confirmed 08/15/23] docusate sodium 100 mg capsule 100 mg PO HS 03/12/23 [History Confirmed 08/15/23] polyethylene glycol 3350 17 gram/dose oral powder 17 g PO DAILY PRN Ixkekfkjvccv34/10/23 [History Confirmed 08/15/23] quetiapine 400 mg tablet,extended release 24 hr 400 mg PO QHS depression 30 days#30 tabs 03/15/23 [Rx Confirmed 03/26/23] albuterol sulfate 90 mcg/actuation aerosol inhaler 2 puff inhalation Q6H PRN Shortness Of Breath Or Wheezing 03/26/23 [History Confirmed 08/15/23] cyanocobalamin (vitamin B-12) 500 mcg tablet (Vitamin B-12) 500 mcg PO DAILY 03/26/23 [History Confirmed 08/15/23] fluticasone propionate 50 mcg/actuation nasal spray,suspension 1 spray intranasal BID 03/26/23 [History Confirmed 08/15/23] folic acid 800 mcg tablet 800 mcg PO DAILY 03/26/23 [History Confirmed 08/15/23] olanzapine 5 mg tablet 5 mg PO Q12HR PRN Agitation 15 days #30 tabs 03/28/23 [Rx Confirmed 08/15/23] Lactobacillus acidophilus (Acidophilus capsule) 1 cap PO DAILY 08/15/23 [History Confirmed 08/15/23] acetaminophen 500 mg tablet 500 mg PO Q6HR PRN fever or pain 08/15/23 [History Confirmed 08/15/23] calcium carbonate 500 mg calcium (1,250 mg) tablet (Oyster Shell Calcium) 500 mgPO DAILY 08/15/23 [History Confirmed 08/15/23] ciprofloxacin HCl 500 mg tablet 500 mg PO BID 08/15/23 [History Confirmed 08/15/23] dextromethorphan-guaifenesin 30 mg-600 mg tablet extended [id number] hr (Mucus DM) 1 tab PO Q12HR PRN cough 08/15/23 [History Confirmed 08/15/23] diclofenac sodium 1 % topical gel 2 g topical 4XD PRN pain 08/15/23 [History Confirmed 08/15/23] fluticasone 250 mcg-salmeterol 50 mcg/dose blistr powdr for inhalation (Advair Diskus) 1 inh inhalation BID 08/15/23 [History Confirmed 08/15/23] levothyroxine 112 mcg tablet 112 mcg PO 0630 08/15/23 [History Confirmed 08/15/23] nystatin 100,000 unit/gram topical cream 1 applic topical BID 08/15/23 [History Confirmed 08/15/23] olanzapine 5 mg tablet (Zyprexa) 5 mg PO DAILY 08/15/23 [History Confirmed 08/15/23] olanzapine 5 mg tablet (Zyprexa) 10 mg PO QHS 08/15/23 [History Confirmed 08/15/23] quetiapine 25 mg tablet 12.5 mg PO BID 08/15/23 [History Confirmed 08/15/23] risperidone microspheres 37.5 mg/2 mL intramuscular susp,ext releas (Risperdal Consta) 37.5 mg IM Q2W 08/15/23 [History Confirmed 08/15/23] quetiapine 400 mg tablet 400 mg PO HS 08/16/23 [History Confirmed 08/16/23] Exam Physical Exam Vital Signs: Temp Pulse Resp BP Pulse Ox O2 Del Method 97.5 F L 72 18 128/84 99 Room Air 08/16/23 08:00 08/16/23 08:00 08/16/23 08:00 08/16/23 08:00 08/16/23 08:00 08/16/23 08:00 Results - Psychiatry Labs 08/15/23 16:18 08/15/23 16:18 Psychiatry Labs: 08/15/23 08/16/23 16:18 05:57 RBC 3.95 Hgb 12.3 Hct 37.3 MCV 94.5 MCH 31.2 MCHC 33.0 RDW 14.2 Plt Count 221 MPV 8.4 Sodium 142 Potassium 4.1 Chloride 109 H Carbon Dioxide 25.3 Anion Gap 11.8 BUN 27 H Creatinine 1.24 H Calcium 9.4 Total Bilirubin 0.3 AST 21 ALT 33 Alkaline Phosphatase 96 Total Protein 7.0 Albumin 4.5 Urine Color Yellow Urine Appearance Clear Urine pH 7.0 Ur Specific [place] 1.005 Urine Protein Negative Urine Glucose (UA) Normal Urine Ketones Negative Urine Occult Blood Negative Urine Nitrite Negative Ur Leukocyte Esterase 3+ H Urine RBC None seen Urine WBC 3-4 [place] 0.50 L Assessment/Plan (1) Schizoaffective disorder: Plan Patient is a 67-year-old female who presents for concerns of hallucinations, anxiety, hypothyroidism, and UTI. Admit to 1S for management of anxiety and to ensure safety of self due to history of hallucinations. Cogentin 0.5 mg PO BID Clonidine 0.1 mg PO Daily Zyprexa 5 mg PO Daily and increase bedtime dose to 12.5 mg PO QHS Seroquel 12.5 mg PO BID and 400 mg PO HS [place] 300 mg PO BID. Obtain lithium level. Cipro 500mg PO BID Synthroid 112 mcg PO Daily Monitor for signs of hallucinations. Recommend attending groups and psychoeducation for building coping skills. Typical short- and long-term side effects of the proposed medication regimen, including contraindications and clinically significant interactions, were discussed with the patient. Side effects include but not limited to sedation, overdose, hypo or hypertension, rash, movement disorders (TD, EPS), weight gain, and appetite changes and advised the patient not to drive or drink while taking these meds. Patient should reach out to medical provider if any of these side effects occur. We also discussed risk of overdose with this current med regimen. Patient voiced understanding of benefits and agreement with treatment plan. Targeted symptoms and signs, possible therapeutic benefit, side effect and riskswere discussed. No abnormal movements noted on exam. AIMS is Zero. Involve friends/family members if applicable to coordinate care and ensure appropriate outpatient appointments are scheduled prior to discharge. I have reviewed evaluations by other providers (ER notes, nurses and staff) Prognosis: Factors to be considered are the chronicity and severity of the symptoms and signs, associated comorbidity, and differential diagnosis-motivation to get in treatment, response to treatment, adherence to treatment recommendations, and using skills. The patient's verbal consent was provided. Documented By: Joe Davis MD 4 [id number] Signed By: <Electronically signed by Joe Davis MD> 08/16/23 1220 [facility] Work Phone: [phone]) 855-125602-13-2024 History of Present illness Narrative* Dakota Mack MD - 07/16/2023 1:20 PM EST Images from the original note were not [...] Visit: pending biopsy results documented in [facility] encounterDo[facility] Spr[id number] NoteHNO ID: [id number] Author: YANDEL DANIEL MD Service: ? Author Type: Physician Type: Progress Notes Filed: 06/28/2023 15:37 Note Text: [facility] Note CC: Post op [...] by mouth every 12 hours as needed. cmlrhm-cpxrxree-thgtfcm (ENZADYNE) 9,000-112,500- 112,500 unit capsule Take 1 [...] Continue follow up Follow up 4 months Yandel Daniel MD Scribe Attestation: By signing my name below, I, Zora Mtz, attest that this documentation has been prepared under the direction and in the presence of Yandel Daniel MD. Electronically Signed: lata Diallo, June 28, 2023 1:53 PM June 28, 2023 I participated in t (more content not included)...[facility] 06-22-2023 NoteHNO ID: [id number] Author: IAN WITT MD Service: Otolaryngology Author Type: Resident Type: Progress Notes Filed: 06/22/2023 09:24 Note Text: [facility] OT[facility] - HEAD AND NECK SURGERY PROGRESS NOTE PAGE [phone] AFTER 1700 AND ON WEEKENDS Patient Name: [...] Head and Neck Surgery PGY 3 Pager: [phone] Service pager: [phone] (page after 5pm and on weekends) SUBJECTIVE: [...] 0659 06/22/23 0700 - 06/23/23 0659 Shift 7767-9785 9066-4495 1611-6153 24 Hour Total 0200-7370 2205-2017 1242-1808 24 Hour Total INTAKE PO(mL/kg) 840(12.92) 1290(19.85) 740(11.38) 2870(44.15) 360(5.54) 360(5.54) PO 840 6063 617 9321 360 360 Shift Total(mL/kg) 840(12.92) 1290(19.85) 740(11.38) [...] Stage 2 chronic kidney disease Goiter [facility]A: [facility] NoteHNO ID: [id number] Author: CHRIS LIVINGSTON RN Service: Care Management Author Type: Registered Nurse Type: Care Mgt Progress Note Filed: 06/21/2023 15:12 Note Text: CARE MANAGEMENT PROGRESS NOTE SERVICE DATE: 06/21/2023 SERVICE TIME: 2:26 PM LOS: 0 days Medically cleared for discharge back to [facility] [place] [id number] ([phone]) JENNIFER spoke with [facility] no long distance transport today or this weekend due to the weather. JENNIFER spoke with nurse Parada at the [facility] she will see if they can get transport and will call CM back. Addendum: 2:50 PM Prachi the nurse from [facility] called back they have no transport either: secure message sent to team. Waiting for response. Addendum: 3:10 PM JENNIFER spoke with Prachi again stated they have their own van that will pick the patient up at 11:00 AM Thursday 06/22, the residential recycle driver will call the CM when they arrive. SIGNATURE: Chris Livingston RN PATIENT NAME: Gail Almeida DATE: June 21, 2023 TIME: 2:26 PM PAGER/CONTACT #: N[facility] NoteHNO ID: [id number] Author: GEMA CARVALHO MD Service: Endocrinology Author Type: Fellow Type: Plan of Care Filed: 06/21/2023 14:11 Note Text: Paged primary team about the consult to endocrine. Per primary they are discharging patient and would follow up outpatient. Was asked to D/C consult per , ENT resident.[facility] 06-21-2023 NoteHNO ID: [id number] Author: JANIS GATES MD Service: Otolaryngology Author Type: Resident Type: Progress Notes Filed: 06/21/2023 10:11 Note Text: [facility] - HEAD AND NECK SURGERY PROGRESS NOTE PAGE [phone] AFTER 1700 AND ON WEEKENDS Patient Name: [...] G81 Janis Gates, PGY-2, Otolaryngology Service Pager: [phone] Pager: [phone] June 19, 2023 9:13 AM For questions after 5 PM and on weekends, please page [phone]. SUBJECTIVE: No acute events overnight. Pain well-controlled [...] 93% Weight: Height: Ins AND Outs: Date 06/20/23699 - 06/21/23 0659 06/21/23699 - 06/22/23 0659 Shift 6185-5115 6803-6785 7858-9692 24 Hour Total 0733-9321 0722-9675 1841-7788 24 Hour Total INTAKE PO 720 5932 446 1179 480 480 PO 720 4557 523 5942 480 480 IV 100 100 100 300 Volume (mL) (ceFAZolin iv piggyback 2 g in D5W (iso-osmotic) 100 mL (ANCEF)) 100 100 100 300 Shift Total 820 2632 249 5721 480 480 OUTPUT Urine 1050 3620 298 0641 Void (ml) 1050 4083 450 8584 Urine Not Saved. 2 x 2 x 2 x 2 x Tubes 15 10 7.5 32.5 Drain/Tube Output (Drain/Tube 06/18/[address] [facility] [place] [facility]) 15 10 7.5 [...] BID w MEALS famotidine (more content not included)...[facility]01-18-[facility]24 NoteHNO ID: [id number] Author: JANIS GATES MD Service: Otolaryngology Author Type: Resident Type: Progress Notes Filed: 06/20/2023 07:09 Note Text: [facility] - HEAD AND NECK SURGERY PROGRESS NOTE PAGE [phone] AFTER 1700 AND ON WEEKENDS Patient Name: [...] output q8h - Dispo: please transfer to [facility] Janis Gates, PGY-2, Otolaryngology Service Pager: [phone] Pager: [phone] June 19, 2023 9:13 AM For questions after 5 PM and on weekends, please page [phone]. SUBJECTIVE: No acute events overnight. Pain well-controlled with current regimen. Breathing well on RA. Tolerating diet. OBJECTIVE: Vitals: 01/17/203006/19/23212306/20/236 06/20/23 0508 BP: 125/76 126/87 139/76 Pulse: 77 83 73 Resp: Temp: 36.8 ?C (98.3 ?F) 36 ?C (96.8 ?F) 36 ?C (96.8 ?F) TempSrc: Oral Temporal Temporal SpO2: 95% 96% 95% 97% Weight: Height: Ins AND Outs: Date 06/19/23699 - 06/20/23 0606/20/23699 - 06/21/23 0659 Shift 7231-4369 8618-9056 4298-9065 24 Hour Total 7900-1922 3655-0799 4684-9943 24 Hour Total INTAKE PO 4320 750 615 9433 PO 4320 861 740 8912 IV 100 100 Volume (mL) (ceFAZolin iv piggyback 2 g in D5W (iso-osmotic) 100 mL (ANCEF)) 100 100 Shift Total 4320 008 173 9494 OUTPUT Urine 500 7533 540 0786 Void (ml) 500 4762 879 0625 Urine Not Saved. 2 x 2 x Tubes 50 27.5 17.5 95 Drain/Tube Output (Drain/Tube 06/18/[address] [facility] [place] [facility]) 50 27.5 17.5 [...] Lozenge (CHLORASEPTIC) 1 Lozeng (more content not included)...[facility]01-[facility]-2024 NoteHNO ID: [id number] Author: JANIS GATES MD Service: Otolaryngology Author Type: Resident Type: Progress Notes Filed: 06/19/2023 09:16 Note Text: [facility] - HEAD AND NECK SURGERY PROGRESS NOTE PAGE [phone] AFTER 1700 AND ON WEEKENDS Patient Name: [...] drains q4h, record output q8h - Dispo: MErvin Gates, PGY-2, Otolaryngology Service Pager: [phone] Pager: [phone] June 19, 2023 9:13 AM For questions after 5 PM and on weekends, please page [phone]. SUBJECTIVE: No acute events overnight. Pain well-controlled with current regimen. Breathing well on RA. Tolerating diet. OBJECTIVE: Vitals: 06/18/23 2104 06/19/23 0108 06/19/23 0119 06/19/23 0519 BP: 155/79 157/71 143/75 Pulse: 82 65 73 Resp: Temp: 36.7 ?C (98.1 ?F) 36.6 ?C (97.9 ?F) 36.3 ?C (97.4 ?F) TempSrc: Oral Temporal Oral SpO2: 96% 98% 98% Weight: Height: Ins AND Outs: Date 06/18/23 07 - 06/19/23 0659 06/19/23 0700 - 06/20/23 0659 Shift 5911-6983 9576-7519 6606-5570 24 Hour Total 1907-0838 3463-2731 7847-9255 24 Hour Total INTAKE PO 120 490 610 360 360 PO 120 490 610 360 360 IV 1100 0528 470 1125 OR Crystalloid intake (mL) 1100 1100 Volume (mL) (ceFAZolin iv piggyback 2 g in D5W (iso-osmotic) 100 mL (ANCEF)) 100 100 Volume (mL) (ceFAZolin iv piggyback 2 g in D5W (iso-osmotic) 100 mL (ANCEF)) 50 100 150 Volume (mL) (lactated ringers iv infusion) 125 125 Volume (mL) (lactated ringers iv infusion) 9738 515 7807 Volume (mL) (NaCl 0.9% iv infusion) 468 500 968 Shift Total 1100 1963 1090 4153 360 360 OUTPUT Urine 003 461 3741 300 300 Void (ml) 000 331 0557 300 300 Urine Incontinence/Not Saved 1 x 1 x Urine Not Saved. 1 x 1 x Tubes 40 17.5 57.5 Drain/Tube Output (Drain/Tube 06/18/[address] [facility] [place] [facility]) 40 17.5 57.5 [...] H PRN Or oxyCOD (more content not included)...[facility]01-17-2024 Note HNO ID: [id number] Author: JONATHAN VALENCIA, TAWANNA Service: ? Author Type: Registered Nurse Type: Nursing Progress Note Filed: 06/19/2023 00:12 Note Text: Per Dr. Mendoza, draw PTH and ionized calcium together at 4 a.m.[facility]16[facility]24 NoteHNO ID: [id number] Author: JANETH VARGAS DO Service: ? Author [...] June 18, 2023 TIME: 12:58 PM CSN: [id number] Wert County Hospital01-16-2024 NoteHNO ID: [id number] Author: JANETH VARGAS DO Service: ? 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 Signature: Janeth Vargas DO Date: 06/18/2023 Time: 12:52 PM SIGNATURE: Deepak Escudero MD, MD PATIENT NAME: Gail Almeida DATE: June 18, 2023 TIME: 12:45 PM CSN: [id number] Wert County Hospital12-28-2023 NoteHNO ID: [id number] Author: Yandel Daniel MD Service: ? Author [...] by mouth every 12 hours as needed. vtdkoe-fgtcuxca-uwuobsx (ENZADYNE) 9,000-112,500- 112,500 unit capsule Take 1 [...] total thyroidectomy as scheduled (more content not included)...[facility]12-28-[facility]23 NoteHNO ID: [id number] Author: Alea Smith RT(R) Service: Radiology Author [...] BY: RT Mendoza(R) May 30, 2023 10:19 [id number] Evaluation note Includes: Assessments for all patient encounters Findings Encounter Date [D48.5 - Neoplasm of uncerta in behavior of skin] skin neoplasm of uncertain behavior Medical Established Patient with Karla Clark [facility] 05/22/2023 Last Documented On 3 1:30PM ; [facility] [Z68.24 - Body mass index [B AR] 24.0-24.9, adult] assessment of body mass index Medical Established Patient with Karla Amber [facility] 05/22/2023 Last Documented On 3 1:30PM ; [facility] Assessment of tobacco use Medical Establ ished Patient with Karla Amber [facility] 05/22/2023 Last Documented On 3 1:30PM ; [facility] [R30.0 - Dysuria] Dysuria Chart Update with Gary segundo Amber [facility] 03/21/2023 Last Documented On 3 11:27AM ; [facility] [Z12.39 - Encounter for othe r screening for malignant neoplasm of breast] visit for: screening for malignant breast neoplasm Medical Established Patient with Aaron Whitaker [facility] 02/28/2023 Last Documented On 3 9:51AM ; [facility] [Z68.24 - Body mass index [B AR] 24.0-24.9, adult] assessment of body mass index Medical Established Patient with Aaron Whitaker [facility] 02/28/2023 Last Documented On 3 9:51AM ; [facility] Assessment of tobacco use Medical Establ ished Patient with Aaron Campbellix COTTON DISPATCHER 02/28/2023 Last Documented On 3 9:51AM ; [facility] Chronic obstructive pulmonary disease Me dical Established Patient with Aaron Campbellix COTTON DISPATCHER 02/28/2023 Last Documented On 3 9:51AM ; [facility] [J20.9 - Acute bronchitis, unspecified] acute bronchitis Medical Established Patient with Karla Clark COTTON DISPATCHER 11/19/2022 Last Documented On 3 10:15AM ; [facility] [M79.621 - Pain in right upp er arm] pain in upper arm Medical Established Patient with Karla Clark COTTON DISPATCHER 11/19/2022 Last Documented On 3 10:15AM ; [facility] [Z68.23 - Body mass index [B AR] 23.0-23.9, adult] assessment of body mass index Medical Established Patient with Karla Clark COTTON DISPATCHER 11/19/2022 Last Documented On 3 10:15AM ; [facility] [M79.601 - Pain in right arm ] pain in right arm Medical Established Patient with Karla Clark COTTON DISPATCHER 09/18/2022 Last Documented On 3 2:33PM ; [facility] [Z68.24 - Body mass index [B AR] 24.0-24.9, adult] assessment of body mass index Medical Established Patient with Karla Clark COTTON DISPATCHER 09/18/2022 Last Documented On 3 2:33PM ; [facility] Assessment of tobacco use Medical Establ ished Patient with Karlanaveed Floresen COTTON DISPATCHER 09/18/2022 Last Documented On 3 2:33PM ; [facility] [M25.569 - Pain in unspecifi ed knee] arthralgia of knee / patella / tibia / fibula Medical Established Patient with Karla Clark COTTON DISPATCHER 08/27/2022 Last Documented On 3 9:20AM ; [facility] [Z68.24 - Body mass index [B AR] 24.0-24.9, adult] assessment of body mass index Medical Established Patient with Karla Clark COTTON DISPATCHER 08/27/2022 Last Documented On 3 9:20AM ; [facility] Intervention and counseling on cessation of tobacco use, 3-10 minutes Discussed medication and nicotine replacement for tobacco cessation Medical Established Patient with Karla Clark COTTON DISPATCHER 08/27/2022 Last Documented On 3 9:20AM ; [facility] Nicotine dependence Medical Established Patient with Karla Clark COTTON DISPATCHER 08/27/2022 Last Documented On 3 9:20AM ; [facility] Visit for routine adult H&P without abnormal findings Medical Established Patient with Karla Clark CNP 08/27/2022 Last Documented On 3 9:20AM ; [facility] [H92.02 - Otalgia, left ear] earache Med ical Established Patient with Karla Clark COTTON DISPATCHER 06/18/2022 Last Documented On 3 12:11PM ; [facility] [M79.604 - Pain in right leg ] pain in right leg Medical Established Patient with Karla Clark COTTON DISPATCHER 06/18/2022 Last Documented On 3 12:11PM ; [facility] [Z68.24 - Body mass index [B AR] 24.0-24.9, adult] assessment of body mass index Medical Established Patient with Karla Clark COTTON DISPATCHER 06/18/2022 Last Documented On 3 12:11PM ; [facility] Assessment of tobacco use Medical Establ ished Patient with Karla Clark COTTON DISPATCHER 06/18/2022 Last Documented On 3 12:11PM ; [facility] Diabetes Risk Test Score was four score 06/18/2022 Medical Established Patient with Karla Clark COTTON DISPATCHER 06/18/2022 Last Documented On 3 12:11PM ; [facility] Schizoaffective disorder Established Patient with Yin Feliz [facility] 03/20/2022 Last Documented On 2 12:13AM ; [facility] No cough Medical Established Patient with Karlanaveed Clark COTTON DISPATCHER 12/20/2021 Last Documented On 2 3:12PM ; [facility] Visit for: screening for hum an immunodeficiency virus Medical Established Patient with Karlanaveed Floresen COTTON DISPATCHER 12/20/2021 Last Documented On 2 3:12PM ; [facility] Z68.24 - Body mass index [BM I] 24.0-24.9, adult Medical Established Patient with Karla Clark COTTON DISPATCHER 12/20/2021 Last Documented On 2 3:12PM ; [facility] Bipolar disorder NOS BH Established Patient with Yin Feliz [facility] 11/03/2021 Last Documented On 2 7:00PM ; [facility] Bipolar schizoaffective disorder BH Esta blished Patient with Yin Feliz [facility] 11/03/2021 Last Documented On 2 7:00PM ; [facility] PLAN Medical Established Patient with Don Pino MD 11/03/2021 Last Documented On 2 10:40AM ; [facility] Abnormal electrocardiogram Medical Estab lished Patient with Don Pino MD 11/03/2021 Last Documented On 2 10:40AM ; [facility] Z68.24 - Body mass index [BM I] 24.0-24.9, adult Medical Established Patient with Don Pino MD 11/03/2021 Last Documented On 2 10:40AM ; [facility] Cough Medical Established Patient with Karla Clark COTTON DISPATCHER 07/28/2021 Last Documented On 2 2:01PM ; [facility] Intervention and counseling on cessation of tobacco use, 3-10 minutes Discussed medication and nicotine replacement for tobacco cessation Medical Established Patient with Karlanaveed Floresen COTTON DISPATCHER 07/28/2021 Last Documented On 2 2:01PM ; [facility] Nicotine dependence Medical Established Patient with Karla Amber COTTON DISPATCHER 07/28/2021 Last Documented On 2 2:01PM ; [facility] Z68.24 - Body mass index [BM I] 24.0-24.9, adult Medical Established Patient with Karla Amber COTTON DISPATCHER 07/28/2021 Last Documented On 2 2:01PM ; [facility] Assess Colon screening Medical Established Patie nt with Karla Amber COTTON DISPATCHER 05/08/2021 Last Documented On 1 10:59AM ; [facility] Diabetes Risk Test Score was four score 05/08/2021 Medical Established Patient with Karla Amber COTTON DISPATCHER 05/08/2021 Last Documented On 1 10:59AM ; [facility] Routine adult history and ph ysical (18-64 yrs) without abnormal findings Medical Established Patient with Karla Amber COTTON DISPATCHER 05/08/2021 Last Documented On 1 10:59AM ; [facility] Z68.24 - Body mass index [BM I] 24.0-24.9, adult Medical Established Patient with Karla Amber COTTON DISPATCHER 05/08/2021 Last Documented On 1 10:59AM ; [facility] Z68.24 - Body mass index [BM I] 24.0-24.9, adult Medical Established Patient with Karla Amber COTTON DISPATCHER 06/17/2020 Last Documented On 1 10:30AM ; [facility] Overweight Medical Established Patient with Karla Amber COTTON DISPATCHER 06/06/2020 Last Documented On 1 2:06PM ; [facility] Z68.25 - Body mass index [BM I] 25.0-25.9, adult Medical Established Patient with Karla Amber COTTON DISPATCHER 06/06/2020 Last Documented On 1 2:06PM ; [facility] Antiasthmatics [facility] Asthma Clinic-New with Karla Amber COTTON DISPATCHER 05/06/2020 Last Documented On 0 7:27PM ; [facility] Assessment of tobacco use [facility] Ast[facility] Clinic-New with Karla Amber COTTON DISPATCHER 05/06/2020 Last Documented On 0 7:27PM ; [facility] Body mass index [facility] Ast[facility] Clinic-New with Karla Amber COTTON DISPATCHER 05/06/2020 Last Documented On 0 7:27PM ; [facility] Chronic obstructive pulmonary disease CP S [facility] with Karla Floresen COTTON DISPATCHER 05/06/2020 Last Documented On 0 7:27PM ; [facility] Overweight CPS [facility] with Karla Floresen COTTON DISPATCHER 05/06/2020 Last Documented On 0 7:27PM ; [facility] Z11.4 - Encounter for screen ing for human immunodeficiency virus [HIV] CPS [facility] with Karla Floresen COTTON DISPATCHER 05/06/2020 Last Documented On 0 7:27PM ; [facility] Diabetes Risk Test Score was three score 03/31/2020 Medical Established Patient with Karla Amber COTTON DISPATCHER 03/31/2020 Last Documented On 0 3:22PM ; [facility] Overweight Medical Established Patient with Karlanaveed Floresen COTTON DISPATCHER 03/31/2020 Last Documented On 0 3:22PM ; [facility] Z68.25 - Body mass index [BM I] 25.0-25.9, adult Medical Established Patient with Karla Floresen COTTON DISPATCHER 03/31/2020 Last Documented On 0 3:22PM ; [facility] Encounter for Immunization Nurse Visit with Gary Clark COTTON DISPATCHER 03/14/2020 Last Documented On 0 5:11PM ; [facility] Body mass index Medical Established Patient with Karla Floresen COTTON DISPATCHER 02/26/2020 Last Documented On 0 1:18PM ; [facility] Overweight Medical Established Patient with Karlanaveed Floresen COTTON DISPATCHER 02/26/2020 Last Documented On 0 1:18PM ; [facility] Overweight Medical Established Patient with Karla Floresen COTTON DISPATCHER 07/23/2019 Last Documented On 0 2:33PM ; [facility] Z68.27 - Body mass index (BM I) 27.0-27.9, adult Medical Established Patient with Karlanaveed Floresen COTTON DISPATCHER 07/23/2019 Last Documented On 0 2:33PM ; [facility] Occasional asthma CPS- Asthma Clinic- F/U with A french Clark COTTON DISPATCHER 06/05/2019 Last Documented On 0 7:04PM ; [facility] Overweight CPS- Asthma Clinic- F/U with Aim naveed Clark COTTON DISPATCHER 06/05/2019 Last Documented On 0 7:04PM ; [facility] Z68.27 - Body mass index (BM I) 27.0-27.9 adult CPS- Asthma Clinic- F/U with Karlanaveed Clark COTTON DISPATCHER 06/05/2019 Last Documented On 0 7:04PM ; [facility] Occasional asthma CPS Med Review with Karla Sandra en COTTON DISPATCHER 04/23/2019 Last Documented On 9 4:01PM ; [facility] Overweight CPS Med Review with Karlanaveed Floresen COTTON DISPATCHER 04/23/2019 Last Documented On 9 4:01PM ; [facility] Z68.27 - Body mass index (BM I) 27.0-27.9 adult CPS Med Review with Karla Clark COTTON DISPATCHER 04/23/2019 Last Documented On 9 4:01PM ; [facility] Acute pharyngitis Medical Established Patient wi th Brandy Serranoer [facility] 04/15/2019 Last Documented On 9 12:31PM ; [facility] Asthmatic bronchitis with ac wales exacerbation Medical Established Patient with Brandy Warren COTTON DISPATCHER 04/15/2019 Last Documented On 9 12:31PM ; [facility] Fagerstrom Score was two Medical Established Pat ient with Brandy Warren COTTON DISPATCHER 04/15/2019 Last Documented On 9 12:31PM ; [facility] PHQ-9: total score was three 04/15/2019 Medical Established Patient with Brandy Warren COTTON DISPATCHER 04/15/2019 Last Documented On 9 12:31PM ; [facility] Body mass index Medical Established Patient with Karlanaveed Floresen COTTON DISPATCHER 03/05/2019 Last Documented On 9 10:27AM ; [facility] Diabetes Risk Test Score was three score Medical Established Patient with Karla Amber COTTON DISPATCHER 03/05/2019 Last Documented On 9 10:27AM ; [facility] Overweight Medical Established Patient with Karla Amber COTTON DISPATCHER 03/05/2019 Last Documented On 9 10:27AM ; [facility] Z68.28 - Body mass index (BM I) 28.0-28.9, adult Medical Established Patient with Karla Amber COTTON DISPATCHER 12/22/2018 Last Documented On 9 10:32AM ; [facility] Assess routine adult history and physical (18 - 64 yrs) Medical Established Patient with Kalra Amber COTTON DISPATCHER 11/06/2018 Last Documented On 9 2:26PM ; [facility] Overweight Medical Established Patient with Karla Amber COTTON DISPATCHER 11/06/2018 Last Documented On 9 2:26PM ; [facility] Z68.28 - Body mass index (BM I) 28.0-28.9, adult Medical Established Patient with Karla Amber COTTON DISPATCHER 11/06/2018 Last Documented On 9 2:26PM ; [facility] Assess dysphagia Medical Established Patient wit h Karla Amber COTTON DISPATCHER 09/11/2018 Last Documented On 9 10:53AM ; [facility] Assess routine adult history and physical (18 - 64 yrs) Medical Established Patient with Karla Amber COTTON DISPATCHER 09/11/2018 Last Documented On 9 10:53AM ; [facility] Assess primary insomnia with sleep apnea Medical Established Patient with Karla Amber COTTON DISPATCHER 09/04/2018 Last Documented On 9 2:23PM ; [facility] Assess routine adult history and physical (18 - 64 yrs) Medical Established Patient with Karla Amber COTTON DISPATCHER 09/04/2018 Last Documented On 9 2:23PM ; [facility] Overweight Medical Established Patient with Karla Amber COTTON DISPATCHER 09/04/2018 Last Documented On 9 2:23PM ; [facility] Z68.29 - Body mass index (BM I) 29.0-29.9, adult Medical Established Patient with Karla Amber COTTON DISPATCHER 09/04/2018 Last Documented On 9 2:23PM ; [facility] Assess vaginal candidiasis Medical Estab lished Patient with Karla Amber COTTON DISPATCHER 07/31/2018 Last Documented On 9 2:12PM ; [facility] Work Phone: 1(367) 655-351212-20-2023 History general Narrative - Reported Includes: Medical History in patient's chart Description Last Updated No previous hospitalizations 05/22/2023 Last Documented On 3 1:30PM ; [facility] 1 previous live (s) 02/28/2023 Last Documented On 3 9:51AM ; [facility] Previously 1 time(s) 02/28/2023 Last Documented On 3 9:51AM ; [facility] Currently nursing 11/03/2021 Last Documented On 2 7:00PM ; [facility] status unknown for sexually tra nsmitted infection 11/03/2021 Last Documented On 2 7:00PM ; [facility] 11/03/2021 Last Documented On 2 7:00PM ; [facility] Not planning to have a baby in the next 12 months 11/03/2021 Last Documented On 2 7:00PM ; [facility] Heart Attack 03/2021 [facility] 1 07/09/2020 Last Documented On 1 10:59AM ; [facility] A recent immunization for flu 05/06/2020 Last Documented On 0 7:27PM ; [facility] Patient gave verbal consent for teleheal th 08/31/2019 Last Documented On 0 9:21AM ; [facility] History of abnormal electrocardiogram Last Documented On 9 2:12PM ; [facility] History of asthma 07/31/2018 Last Documented On 9 2:12PM ; [facility] History of cardiovascular disorder 07/31 Last Documented On 9 2:12PM ; [facility] History of respiratory disorder 07/31/19 19 Last Documented On 9 2:12PM ; [facility] History of bipolar disorder NOS 07/31/19 19 Last Documented On 9 2:12PM ; [facility] History of depression 07/31/2018 Last Documented On 9 2:12PM ; [facility] History of psychiatric disorders 019 Last Documented On 9 2:12PM ; [facility] Work Phone: [phone]) 895-584812-20-2023 History general Narrative - Reported Includes: Medical History in patient's chart Description Last Updated No previous hospitalizations 05/22/2023 Last Documented On 3 1:30PM ; [facility] 1 previous live (s) 02/28/2023 Last Documented On 3 9:51AM ; [facility] Previously 1 time(s) 02/28/2023 Last Documented On 3 9:51AM ; [facility] Currently nursing 11/03/2021 Last Documented On 2 7:00PM ; [facility] status unknown for sexually tra nsmitted infection 11/03/2021 Last Documented On 2 7:00PM ; [facility] 11/03/2021 Last Documented On 2 7:00PM ; [facility] Not planning to have a baby in the next 12 months 11/03/2021 Last Documented On 2 7:00PM ; [facility] Heart Attack 03/2021 [facility] 1 07/09/2020 Last Documented On 1 10:59AM ; [facility] A recent immunization for flu 05/06/2020 Last Documented On 0 7:27PM ; [facility] Patient gave verbal consent for teleheal th 08/31/2019 Last Documented On 0 9:21AM ; [facility] History of abnormal electrocardiogram Last Documented On 9 2:12PM ; [facility] History of asthma 07/31/2018 Last Documented On 9 2:12PM ; [facility] History of cardiovascular disorder 07/31 Last Documented On 9 2:12PM ; [facility] History of respiratory disorder 07/31/19 19 Last Documented On 9 2:12PM ; [facility] History of bipolar disorder NOS 07/31/19 19 Last Documented On 9 2:12PM ; [facility] History of depression 07/31/2018 Last Documented On 9 2:12PM ; [facility] History of psychiatric disorders 019 Last Documented On 9 2:12PM ; [facility] Work Phone: 1([phone]) 701-463712-20-2023 History general Narrative - Reported Includes: Medical History in patient's chart Description Last Updated No previous hospitalizations 05/22/2023 Last Documented On 3 1:30PM ; [facility] 1 previous live (s) 02/28/2023 Last Documented On 3 9:51AM ; [facility] Previously 1 time(s) 02/28/2023 Last Documented On 3 9:51AM ; [facility] Currently nursing 11/03/2021 Last Documented On 2 7:00PM ; [facility] status unknown for sexually tra nsmitted infection 11/03/2021 Last Documented On 2 7:00PM ; [facility] 11/03/2021 Last Documented On 2 7:00PM ; [facility] Not planning to have a baby in the next 12 months 11/03/2021 Last Documented On 2 7:00PM ; [facility] Heart Attack 03/2021 [facility] 1 07/09/2020 Last Documented On 1 10:59AM ; [facility] A recent immunization for flu 05/06/2020 Last Documented On 0 7:27PM ; [facility] Patient gave verbal consent for teleheal th 08/31/2019 Last Documented On 0 9:21AM ; [facility] History of abnormal electrocardiogram Last Documented On 9 2:12PM ; [facility] History of asthma 07/31/2018 Last Documented On 9 2:12PM ; [facility] History of cardiovascular disorder 07/31 Last Documented On 9 2:12PM ; [facility] History of respiratory disorder 07/31/19 19 Last Documented On 9 2:12PM ; [facility] History of bipolar disorder NOS 07/31/19 19 Last Documented On 9 2:12PM ; [facility] History of depression 07/31/2018 Last Documented On 9 2:12PM ; [facility] History of psychiatric disorders 019 Last Documented On 9 2:12PM ; [facility] Work Phone: 1(282) 188-554712-20-2023 Progress note* Progress note Date Encounter Last Documented by 05/22/2023 Medical Established Patient Last documented on 05/22/2023; 1:30 PM, Karla Clark CNP; [facility] Active Problems & Conditions - J20.9 [...] abuse Chief Complaint The Chief Complaint is: ER follow up for PNE. Patient reports still has some cough and congestion. Referred Here Referred by emergency room. Prior encounters. History of Present Illness Gail Almeida is a 67 year old female. - Allergy list reviewed - Reviewed Medications - Medication list reviewed Presents s/p pneumonia stay at [place] . she having neck mass removed at [facility] in june Current Medication - Acetaminophen ER 650 MG Oral Tablet Extended Release Tablet, controlled- release take 1 tablet by mouth twice daily, [...] 108 (90 Base) MCG/ACT Inhalation Aerosol Solution Aerosol, solution INHALE 1 OR 2 PUFFS EVERY 6 HOURS NEEDED FOR WHEEZING/SHORTNESS OF BREATH (october), 30 days, 11 refills - Amantadine HCl 100 MG Oral Capsule Capsule, conventional Take 1 tablet by mouth twice a [...] refills - Colace 100 MG Oral Capsule Capsule, conventional take 1 capsule by mouth once daily at bedtime, 30 days, 11 refills - Famotidine 20 MG Oral Tablet TAKE 1 TABLET BY MOUTH TWICE A DAY, 30 days, 11 refills - Fluticasone Propionate 50 MCG/ACT Nasal Suspension INHALE 1 SPRAY INTO EACH NOSTRIL TWICE A DAY, 30 days, 11 refills - Folic Acid 800 MCG Oral Tablet TAKE 1 TABLET BY MOUTH ONCE EVERY DAY, 30 days, 11 refills - [place] Carbonate 150 MG Oral Capsule Capsule, conventional one capsule by mouth twice daily, 30 days, 0 refills - Loratadine 10 MG Oral Tablet take 1 tablet by mouth once daily, 30 days, 11 refills - Mobic 15 MG Oral Tablet take 1 tablet by mouth once daily (no other nsaids), 30 days, 11 refills - OLANZapine 5 MG Oral Tablet take one tablet by mouth two times dailyas needed for agitation/anxiety, 15 days, 0 refills - Polyethylene Glycol 3350 17 GM/SCOOP Oral Powder 17GM= 1CAP DISSOLVE IN 4-8 OZ LIQUID BEFORE ADMINISTRATION BY MOUTH EVERY DAY, 30 days, 11 refills - QC Vitamin B12 500 MCG Oral Tablet TAKE 1 TABLET BY MOUTH ONCE EVERY DAY ALONG WITH FOLIC ACID, 30 days, 11 refills - QUEtiapine Fumarate 25 MG Oral Tablet take 1/2 tablet by mouth 2 times daily, 30 days, 0 refills - QUEtiapine Fumarate 400 MG Oral Tablet take one tablet by mouth daily at bedtime, 30 days, 0 refills - RisperDAL Consta 25 MG Intramuscular Suspension Reconstituted ER inject 2 milliliters IM every 2 weeks, 0 days, 0 refills - Topiramate 25 MG Oral Tablet take 1 tablet by mouth once daily at bedtime, 30 days, 11 refills Past Medical/Surgical History Reported: Patient gave verbal consent for telehealth. Medical: No previous hospitalizations. Partners sexually transmitted infection status not known. Immunization History: Recent immunization for flu. : Previously 1 time(s) and para having 1 live (s). Not planning to have a baby in the next 12 months. Diagnoses: Abnormal electrocardiogram. Asthma. Bipolar disorder NOS Depression Heart Attack 03/2021 [facility]. Surgical: - General surgery right shoulder ORIF 09/13/22 - Hysterectomy Social History Environmental Exposure: Secondhand cigarette smoke exposure. Tobacco use: Cigarette smoking Light (1-10/day). Not using electronic cigarettes/vaping. Alcohol: Not using alcohol. Drug Use: Not using drugs denied by patient. Sexual: Not sexually active. Sexual orientation Straight (not lesbian or pierce) [...] family Maternal: Breast neoplasm Review Of Systems Head: No head symptoms. Neck: Lump or swelling in the neck left neck mass. Eyes: No eye symptoms. Otolaryngeal: No ear symptoms, no nasal symptoms, no nose and sinus finding, no throat symptoms, no oral cavity symptoms, and no jaw symptoms. Breasts: No breast symptoms. Cardiovascular: No cardiovascular symptoms and no chest pain or discomfort. Pulmonary: I cough all the time chronic. Gastrointestinal: No gastrointestinal symptoms. Genitourinary: No genitourinary symptoms. Musculoskeletal: No musculoskeletal symptoms. Neurological: No neurological symptoms. Psychological: No psychological symptoms. Skin: No skin symptoms. Physical Findings - Vitals taken 05/22/2023 10:50 am BP-Sitting R138/89 mmHg BP Cuff SizeLarge Pulse Rate-Nenirky69 bpm Teajps78 in Fowcvd187 lbs 9.6 oz Body Mass Index24.8 kg/m2 Body Surface Area1.7 m2 Oxygen Ftkohhxkev30 % Vital Signs: - Systolic blood pressure 130 - 139 mmHg. - Diastolic blood pressure 80-89 mmHg. General Appearance: - Awake. - Alert. - [...] Ear: - Normal. Tympanic Membrane: - Examined. Hearing Exam: - No hearing abnormalities. Right Ear: - [...] Skin: - General appearance was normal. Tests Laboratory-based Chemistry: Other Laboratory Tests: Screening for sexually transmitted infections was not performed. Assessment - Z72.0 - Tobacco use - Z68.24 - Body mass index [BMI] 24.0-24.9, adult - D48.5 - Neoplasm of uncertain behavior of skin Vaccinations - Received dose of Reported: Patient has received the COVID Vaccine Counseling/Education - Wishing to stop smoking Discussed Quit Line resources - Discussed nutritional needs teach healthy choices including fruits and vegetables - Patient education about a proper diet - Discussed concerns about exercise: promote physical activity Plan StartCited- Neoplasm of uncertain behavior of skin Referrals: Dermatology Instructions: Please make a referral to: [facility] EndCited StartCited- Other Follow-up Appointment wellness september 2023 EndCited Advance Directives - Advance Care Planning Health Reminders - Assess BMI satisfied 05/22/2023. - Assess Tobacco Use satisfied 05/22/2023. - BENOIT-2 satisfied 05/22/2023. - PHQ9 / PHQA satisfied 05/22/2023. - Smoking & Tobacco Cessation Intervention and Counseling satisfied 05/22/2023. User Defined 1 BENOIT-2 score was 0 05/22/2023, BENOIT-7 score [BENOIT-7] Feeling nervous, anxious or on edge? + 0 pt : Not at all, [BENOIT-7] Not being able to stop or control worrying? + 0 pt : Not at all, Patient Health Questionnaire 9-Item total score was 0 05/22/2023, [PHQ-9-1] Little interest or pleasure in doing [...] 0 pt : Not at all. Health [facility]11-09-2023 NoteHNO ID: [id number] Author: Yandel Daniel MD Service: ? Author [...] details please see patient questionnaire scanned into [employer]. History: No past medical history on file. [...] refer to the patient questionnaire scanned into [employer]. Physical Exam: Vitals - There were no [...] will involve endocrinology for (more content not included)...[facility]10-26-2023 Discharge summary Author Joe rodriguez [facility] March 28, 2023 1:30pm Note Date/Time March 28, 2023 1 :30pm [facility] [address] [place] [address] Discharge Summary Signed Patient: Gail Almeida MR#: [id number] : 1955 Acct:[id number] Age/Sex: 67 / F Adm Date: 3 Loc: Room: [address] [place] [address]: Joe Davis MD Copies to: [...] disruptive behavior at her assisted living facility, [facility]. Patient was previously admitted earlierthis month due to a medication miscommunication regarding her Seroquel in which she stopped taking the medication and appeared to be in a manic episode. Cardiology reports indicate her QTc is not prolonged and Seroquel could be continued safely. She was scheduled to receive her Risperdal Consta 25 mg/2ml on03/05/23 but the MAR from [facility] did not indicate whether she received it.Her [...] Plan for next Risperdal Consta injection at [facility] facility 04/01/23 then continue Q2W. Physical exam: [...] Instructions: Important Contact Information You can call [facility] Inpatient Behavioral Health at [phone] any time day or night if you have emergent questions or question regarding discharge instructions. If at any time you are feeling an increase inyour psychiatric symptoms, call your physician or behavioral healthcare provider. If any time you have thoughts of harming yourself or others contact one of the following: Call 9-8-8 (available 24/12) Crisis Text Line (available 24/12) text 4HOPE to [phone] [facility] Hope Line (available 8 a.m. Midnight) call [phone] ([phone]) Next Risperidal Consta injection Due 04/02/23 Instructions: Schizoaffective Disorder (DC), [facility] Behavioral Health DC Instructions Prescriptions: New quetiapine [...] cap PO DAILY fluticasone propionate 50 mcg/actuation Clarks,Suspension 1 spray INTRANASAL BID Rx Instructions: inhale [...] PO Q12H PRN (Reason: Congestion) Follow Up: [facility] [Other] (Long Acting Injetion Risperdal Consta Due 04/02/23) [facility] [Outside] - 04/02/23 12:15 pm (Case Management: A vocational case manager will call you tomorrow, 03/29/23 between 8:00am and 5:00pm. Psychiatrist: Saturday04/02/23 @ 12:15pm with Dr. Munoz) Karla Clark APRN, WATCH REPAIR TECHNICIAN-C [Referring] - Documented By: Joe Davis MD 3 1042 Signed By: <Electronically signed by Joe Davis MD> 03/28/23 1330 [facility] Work Phone: [phone]) 402-602510-26-2023 Hospital Discharge instructions Additional Instructions Important Contact Information You can call [facility] at [phone] any time day or night if you have emergent questions or question regarding discharge instructions. If at any time you are feeling an increase in your psychiatric symptoms, call your physician or behavioral healthcare provider. If any time you have thoughts of harming yourself or others contact one of the following: Call 88 (available 24/12) Crisis Text Line (available 24/12) text 4HOPE to [phone] [facility] Hope Line (available 8 a.m. Midnight) call [phone] ([phone]) Next Risperidal Consta injection Due 04/02/23[facility] Work Phone: 1(120) 911-720710-25-2023 Progress note Author Joe rodriguez [facility] March 27, 2023 11:29am Note Date/Time March 27, 2023 1 1:29am [facility] [address] [place] [address] Psychiatry Progress Note Signed Patient: Gail Almeida MR#: [id number] : 1955 Acct:[id number] Age/Sex: 67 / F Adm Date: 3 Loc: 1S Room: [address] [place] [address] Type : ADM INOo Attending Dr: Joe Davis MD Copies to: ~ Date of Service: 03/27/2023 Subjective Subjective Narrative: Ms. Almeida states she is feeling better this morning. [...] <Electronically signed by Joe Davis MD> 03/27/23 1129 [facility] Work Phone: [phone] 210-981110-25-2023 History and physical note Author Joe rodriguez [facility] March 27, 2023 9:05am Note Date/Time March 27, 2023 9 :05am [facility] [address] [place] [address] Psychiatry H&P Signed Patient: Gail Almeida MR#: [id number] : 1955 Acct:[id number] Age/Sex: 67 / F Adm Date: 3 Loc: Room: [address] [place] [address] Type: ADM INOo Attending Dr: Joe Davis [...] homicidality and suicidality Insight: fair Judgment: fair [facility] Medical History (Updated 03/26/23 @ 18:06 by [...] oral powder 17 g PO DAILY PRN Zeduqnijteui03/10/23 [History Confirmed 03/26/23] quetiapine 400 mg tablet,extended [...] 03/26/23] dextromethorphan-guaifenesin 30 mg-600 mg tablet extended beyteaw09 hr (Mucus DM) 1 tab PO Q12H [...] participation. Documented By: Joe Davis MD 3 0728 Signed By: <Electronically signed by Joe Davis MD> 03/27/23 0905 [facility] Work Phone: 1(956) 760-515410-24-2023 Consult note Author Jose Huang [facility] March 26, 2023 9:29pm Note Date/Time March 26, 2023 5 :27pm [facility] [address] [place] [address] Hospitalist Consult Note Signed Patient: Gail Almeida MR#: [id number] : 1955 Acct:[id number] Age/Sex: 67 / F Adm Date: 3 Loc: Room: [address] [place] [address] Type: ADM IN Attending Dr: Joe Davis MD Copies to: NON STAFF MD Mariana Vides APRN Shawn J Warner, DO~ HPI DATE OF CONSULTATION: 03/26/23 REQUESTING PROVIDER: Joe Davis Consult Narrative Reason for Consult: Nausea vomiting HPI: This is a 67 past medical history significant for COPD/asthma, hypertension, GERD, arthritis, tobacco use, schizoaffective, bipolar, diabetes, Parkinson's, long medication allergy list. Presented to outside hospital from her assisted living facility with mental health concerns. Transferred to [facility] for inpatient psychiatric admission. Hospitalist team is [...] negative unless noted below or in HPI [facility] Medical History (Updated 03/26/23 @ 18:06 by [...] oral powder 17 g PO DAILY PRN Vscvnmyzbhgb11/10/23 [History Confirmed 03/26/23] quetiapine 400 mg tablet,extended [...] 03/26/23] dextromethorphan-guaifenesin 30 mg-600 mg tablet extended jlzazjb43 hr (Mucus DM) 1 tab PO Q12H [...] spray 03/26/23 09:00 03/26/23 08:22 Fluticasone Propionate Clarks 120 Clarks/16 Gm Bottle INTRANASAL 03/25/24 08:59 1 spray [...] 03/25/24 08:59 1 cap DAILY JOANNA Administration [place] Carbonate 150 mg 03/26/23 09:00 03/26/23 08:21 [place] Carbonate 300 Mg Tablet PO 03/25/24 08:59 150 mg BID JOANNA Administration Loratadine 10 mg 03/26/23 09:00 03/26/23 08:21 Loratadine 10 Mg Tablet PO 03/25/24 08:59 10 mg DAILY JOANNA Administration Magnesium Hydroxide 30 ml 03/26/23 01:03 Magnesium Hydroxide Susp 30 Ml Udc PO 03/25/24 01:02 Q6H PRN Constipation Meloxicam 15 mg 03/26/23 22:00 Meloxicam *Nf* 7.5 Mg Tablet PO 03/25/24 21:59 [facility] Olanzapine 5 mg 03/26/23 01:03 Olanzapine 5 [...] 200 Mg Tab.Er.24h PO 03/25/24 21:59 QHS [facility] Sterile Water 2.1 ml 03/26/23 01:03 Water For Injection,Sterile 10 Ml Vial INJECTION 03/25/24 01:02 PRN PRN To dilute OLANZapine (ZyPREXA) Topiramate 25 mg 03/26/23 22:00 Topiramate 25 Mg Tablet PO 03/25/24 21:59 QHS [facility] Exam Physical Exam Vital Signs: Temp [...] Results - last 72 hr 03/26/23 07:30: [place] 0.20 L 03/26/23 07:30: Triglycerides 86, Cholesterol [...] Signed By: <Electronically signed by RODNEY Pryor> 03/26/231828 <Electronically signed by Jose Huang DO> 03/26/232128 [facility] Work Phone: [phone]) 557-751810-24-2023 Consult note Author Mariana Pryor [facility] March 26, 2023 5:27pm Note Date/Time March 26, 2023 3 :48pm [facility] [address] [place] [address] Hospitalist Consult Note Signed with Addenda Patient: Gail Almeida MR#: [id number] : 1955 Acct:[id number] Age/Sex: 67 / F Adm Date: 3 Loc: Room: [address] [place] [address] Type: ADM IN Attending Dr: Joe Davis MD Copies to: NON STAFF MD Mariana Vides APRN~ ADDENDUM1 disregard signed without completion Addendum Documented By: RODNEY Pryor 03/26/231725 Addendum Signed By: <Electronically signed by RODNEY Pryor> 03/26/231725 HPI DATE OF CONSULTATION: 03/26/23 REQUESTING PROVIDER: Joe Davis [facility] Medical History (Updated 03/26/23 @ 01:23 by [...] oral powder 17 g PO DAILY PRN Twvnwjwbpobu93/10/23 [History Confirmed 03/26/23] quetiapine 400 mg tablet,extended [...] 03/26/23] dextromethorphan-guaifenesin 30 mg-600 mg tablet extended hr (Mucus DM) 1 tab PO Q12H [...] spray 03/26/23 09:00 03/26/23 08:22 Fluticasone Propionate Clarks 120 Clarks/16 Gm Bottle INTRANASAL 03/25/24 08:59 1 spray [...] cap 03/26/23 09:00 03/26/23 08:22 L. Acidophilus/Strept/La P-Aarm 1 Cap Capsule PO 03/25/24 08:59 1 cap DAILY JOANNA Administration [place] Carbonate 150 mg 03/26/23 09:00 03/26/23 08:21 [place] Carbonate 300 Mg Tablet PO 03/25/24 08:59 [...] Topiramate 25 Mg Tablet PO 03/25/24 21:59 QHS JOANNA Exam Physical Exam Vital Signs: Temp Pulse Resp BP Pulse Ox O2 Del Method 97.5 F L 103 H 17 137/78 97 Room Air 03/26/23 15:30 03/26/23 15:30 03/26/23 15:30 03/26/23 15:30 03/26/23 15:30 03/26/23 15:30 Results Lab Results Labs: Laboratory Results - last 72 hr 03/26/23 07:30: [place] 0.20 L 03/26/23 07:30: Triglycerides 86, Cholesterol 165, LDL Cholesterol, Calc 95, VLDL Cholesterol 17, HDL Cholesterol 53, Cholesterol/HDL Ratio 3.1, 25-OH Vitamin D Total 34.5, Free T4 0.74, TSH 3rd Generation 0.42 L Documented By: Mariana Pryor APRN 03/04 09/23 1548 Signed By: <Electronically signed by RODNEY Pryor> 03/26/23 1725 [facility] Work Phone: 1(729) 598-157210-19-2023 Progress note* Progress note Date Encounter Last Documented by 03/21/2023 Chart Update Last documented on 03/21/2023; 11:27 AM, Karla Clark CNP; [facility] Active Problems & Conditions - J20.9 - [...] arm pain, 5 days, 0 refills - [place] Carbonate 150 MG Oral Capsule one capsule [...] Bipolar disorder NOS Depression Heart Attack 03/2021 [facility]. Surgical: - General surgery right shoulder [...] EndCited Advance Directives - Advance Care Planning [facility]10-19-2023 Instructions Includes: Instructions for all patient encounters Instructions to patient Intervention and counseling on cessation of tobacco use, 3-10 minutes Discussed medication and nicotine replacement for tobacco cessation Last Documented On 3 8:54AM ; [facility] Intervention and counseling on cessation of tobacco use, 3-10 minutes Discussed medication and nicotine replacement for tobacco cessation Last Documented On 2 1:56PM ; [facility] Intervention and counseling on cessation of tobacco use, 3-10 minutes Last Documented On 0 2:07PM ; [facility] Return to the clinic if cond ition worsens or new symptoms arise Last Documented On 9 1:59PM ; [facility] Intervention and counseling on cessation of tobacco use, 3-10 minutes Last Documented On 9 10:39AM ; [facility] Education and Decision Aids were provided during visit for: Discussed nutritional needs teach healthy choices including fruits and vegetables Last Documented On 3 9:37AM ; [facility] Patient education about a pr oper diet Last Documented On 3 9:37AM ; [facility] Discussed concerns about exe rcise : promote physical activity Last Documented On 3 9:37AM ; [facility] Not requesting contraception Last Documented On 3 9:37AM ; [facility] Discussed nutritional needs teach healthy choices including fruits and vegetables Last Documented On 3 9:20AM ; [facility] Patient education about a pr oper diet Last Documented On 3 9:20AM ; [facility] Discussed concerns about exe rcise : promote physical activity Last Documented On 3 9:20AM ; [facility] Discussed nutritional needs teach healthy choices including fruits and vegetables Last Documented On 3 2:02PM ; [facility] Patient education about a pr oper diet Last Documented On 3 2:02PM ; [facility] Discussed concerns about exe rcise : promote physical activity Last Documented On 3 2:02PM ; [facility] Discussed nutritional needs teach healthy choices including fruits and vegetables Last Documented On 3 8:32AM ; [facility] Patient education about a pr oper diet Last Documented On 3 8:32AM ; [facility] Discussed concerns about exe rcise : promote physical activity Last Documented On 3 8:32AM ; [facility] Discussed nutritional needs teach healthy choices including fruits and vegetables Last Documented On 3 11:28AM ; [facility] Patient education about a pr oper diet Last Documented On 3 11:28AM ; [facility] Discussed concerns about exe rcise : promote physical activity Last Documented On 3 11:28AM ; [facility] Discussed nutritional needs teach healthy choices including fruits and vegetables Last Documented On 2 2:01PM ; [facility] Patient education about a pr oper diet Last Documented On 2 2:01PM ; [facility] Discussed concerns about exe rcise : promote physical activity Last Documented On 2 2:01PM ; [facility] Discussed nutritional needs teach healthy choices including fruits and vegetables Last Documented On 2 2:11PM ; [facility] Patient education about a pr oper diet Last Documented On 2 2:11PM ; [facility] Discussed concerns about exe rcise : promote physical activity Last Documented On 2 2:11PM ; [facility] Discussed current self-care methods/coping skills. ~Validated and normalized pt's feelings while assisting patient process recent events. ~Discussed ongoing counseling. ~Discussed lifestyle changes to address chronic illness. ~Supported patient's personal health goals ~wordfinds. walk, read, eat, enjoy my best friesnd Last Documented On 2 5:54PM ; [facility] Discussed nutritional needs teach healthy choices including fruits and vegetables Last Documented On 2 10:04AM ; [facility] Patient education about a pr oper diet Last Documented On 2 10:04AM ; [facility] Discussed concerns about exe rcise : promote physical activity Last Documented On 2 10:04AM ; [facility] Discussed nutritional needs teach healthy choices including fruits and vegetables Last Documented On 2 1:25PM ; [facility] Patient education about a pr oper diet Last Documented On 2 1:25PM ; [facility] Discussed concerns about exe rcise : promote physical activity Last Documented On 2 1:25PM ; [facility] Discussed nutritional needs teach healthy choices including fruits and vegetables Last Documented On 1 10:08AM ; [facility] Patient education about a pr oper diet Last Documented On 1 10:08AM ; [facility] Discussed concerns about exe rcise : promote physical activity Last Documented On 1 10:08AM ; [facility] Discussed nutritional needs teach healthy choices including fruits and vegetables Last Documented On 1 1:12PM ; [facility] Patient education about a pr oper diet Last Documented On 1 1:12PM ; [facility] Patient education about a pr oper diet Last Documented On 1 1:30PM ; [facility] Patient education about meal planning Last Documented On 1 1:30PM ; [facility] Education about changing eat ing habits Last Documented On 1 1:30PM ; [facility] Patient education about high fiber diet Last Documented On 1 1:30PM ; [facility] Patient education about low fat diet Last Documented On 1 1:30PM ; [facility] Patient education about low cholesterol diet Last Documented On 1 1:30PM ; [facility] Patient education about low carbohydrate diet Last Documented On 1 1:30PM ; [facility] Patient education about high protein diet Last Documented On 1 1:30PM ; [facility] Discussed concerns about exe rcise : promote physical activity Last Documented On 1 1:12PM ; [facility] Education/counseling conduct ed by pharmacist Last Documented On 0 1:39PM ; [facility] Vaccination counseling Last Documented On 0 1:39PM ; [facility] Discussed concerns about exe rcise : promote physical activity Last Documented On 0 2:16PM ; [facility] Patient goals decrease short ness of breath episodes Last Documented On 0 2:11PM ; [facility] Patient states that she uses her rescue [...] recently Last Documented On 0 2:24PM ; [facility] Patient education about a pr oper diet Last Documented On 0 2:54PM ; [facility] Patient education about meal planning Last Documented On 0 2:54PM ; [facility] Education about changing eat ing habits Last Documented On 0 2:54PM ; [facility] Patient education about high fiber diet Last Documented On 0 2:54PM ; [facility] Patient education about low fat diet Last Documented On 0 2:54PM ; [facility] Patient education about low cholesterol diet Last Documented On 0 2:54PM ; [facility] Patient education about low carbohydrate diet Last Documented On 0 2:54PM ; [facility] Patient education about high protein diet Last Documented On 0 2:54PM ; [facility] Discussed nutritional needs teach healthy choices including fruits and vegetables Last Documented On 0 11:11AM ; [facility] Patient education about a pr oper diet Last Documented On 0 11:11AM ; [facility] Patient education about a pr oper diet Last Documented On 0 11:28AM ; [facility] Patient education about meal planning Last Documented On 0 11:28AM ; [facility] Education about changing eat ing habits Last Documented On 0 11:28AM ; [facility] Patient education about high fiber diet Last Documented On 0 11:28AM ; [facility] Patient education about low fat diet Last Documented On 0 11:28AM ; [facility] Patient education about low cholesterol diet Last Documented On 0 11:28AM ; [facility] Patient education about low carbohydrate diet Last Documented On 0 11:28AM ; [facility] Patient education about high protein diet Last Documented On 0 11:28AM ; [facility] Discussed concerns about exe rcise : promote physical activity Last Documented On 0 11:11AM ; [facility] Education/counseling conduct ed by pharmacist Last Documented On 0 1:41PM ; [facility] Patient states that she lonnie gonzalez has issues using inhaler. [facility] Rarely uses her rescue inhaler, may use [...] own Last Documented On 0 2:08PM ; [facility] Education/counseling conduct ed by pharmacist Last Documented On 9 1:12PM ; [facility] Patient states that she lonnie gonzalez has issues with her inhaler with the spacer. Patient did not bring in inhaler or spacer. Patient was told to bring in inhalers at next scheduled visit for pharmacist to assess inhalation technique. Patient is agreeable Last Documented On 9 1:13PM ; [facility] Patient goals Start using ch deon to help with inhaling dulera Last Documented On 9 2:40PM ; [facility] Patient states that she is g etting [...] vaccines Last Documented On 9 2:51PM ; [facility] Discussed nutritional needs teach healthy choices including fruits and vegetables Last Documented On 9 9:29AM ; [facility] Patient education about a pr oper diet Last Documented On 9 9:29AM ; [facility] Discussed concerns about exe rcise : promote physical activity Last Documented On 9 9:29AM ; [facility] Work Phone: 1(301) 357-410810-13-2023 Hospital Discharge instructions Additional Instructions Important Contact Information You can call [facility]patient [facility] at [phone] any time day or night if you have emergent questions or question regarding discharge instructions. If at any time you are feeling an increase in your psychiatric symptoms, call your physician or behavioral healthcare provider. If any time you have thoughts of harming yourself or others contact one of the following: Call 288 (available 24/12) Crisis Text Line (available 24/12) text 4HOPE to [phone] [facility] Hope Line (available 8 a.m. Midnight) call [phone] ([phone]) Regular Diet No Activity Restrictions Risperdal Consta Long Acting Injection Due 10/19/23[facility] Work Phone: 1(618) 887-206010-12-2023 Consult note Author Maddy Moss [facility] March 14, 2023 3:16pm Note Date/Time March 14, 2023 3 :14pm [facility] [address] [place] [address] Cardiology Consult Note Signed Patient: Gail Almeida MR#: [id number] : 1955 Acct:[id number] Age/Sex: 67 / F Adm Date: 3 Loc: Room: [address] [place] [address] Type: ADM IN Attending Dr: Joe Davis [...] negative unless noted below or in HPI [facility] Medical History (Updated 03/14/23 @ 15:12 by [...] oral powder 17 g PO DAILY PRN Zvtkmfwgvncj87/10/23 [History Confirmed 03/12/23] Exam Physical Exam Vital [...] x10E3/uL Lymph # (Auto) 1.9 (1.00-4.8) x10E3/uL Preston # (Auto) 0.6 (0.0-0.8) x10E3/uL Eos # [...] 3.9 (3.5-5.7) gm/dL Intake and Output 03/13/23 03/14/2303/14/23 23:59 07:59 15:59 Other: Date of Last [...] <Electronically signed by Maddy Moss MD> 03/14/23 3607 [facility] Work Phone: 1(627) 336-594110-12-2023 Progress note Author Joe rodriguez [facility] March 14, 2023 6:33am Note Date/Time March 14, 2023 6 :33am [facility] [address] [place] [address] Psychiatry Progress Note Signed Patient: Gail Almeida MR#: [id number] : 1955 Acct:[id number] Age/Sex: 67 / F Adm Date: 3 Loc: 1S Room: 3V3300-2 Type : ADM IN Attending Dr: Joe [...] status. Documented By: Joe Davis MD 3 31 Signed By: <Electronically signed by Joe Davis MD> 03/14/23 0633 [facility] Work Phone: 1(257) 486-600710-11-2023 Progress note Author Joe rodriguez [facility] March 13, 2023 1:14pm Note Date/Time March 13, 2023 7 :06am [facility] [address] [place] [address] Psychiatry Progress Note Signed Patient: Gail Almeida MR#: [id number] : 1955 Acct:[id number] Age/Sex: 67 / F Adm Date: 3 Loc: Room: [address] [place] [address] Type : ADM IN Attending Dr: Joe [...] Schizoaffective disorder, unspecified Status: Acute Plan Ms. Almieda is a 67-year-old female with past medical history of bipolar disorderwho presents today for worsening delusions. She demonstrating signs of shelby. Increase Seroquel to 400 mg p.o. nightly. Encourage group participation and medication compliance. Continue to monitor mental status. Documented By: Joe Davis MD 3 0704 Signed By: <Electronically signed by Joe Davis MD> 03/13/23 [facility]4 [facility] Work Phone: 1(455) 429-269710-10-2023 History and physical note Author Joe rodriguez [facility] March 12, 2023 11:25am Note Date/Time March 12, 2023 1 0:29am [facility] [address] [place] [address] Psychiatry H&P Signed Patient: Gail Almeida MR#: [id number] : 1955 Acct:[id number] Age/Sex: 67 / F Adm Date: 3 Loc: 1S Room: [address] [place] [address] Type: ADM IN Attending Dr: Joe Davis [...] signs of shelby. She was sent to [facility] for medical clearance and then brought to [facility]. The patient stated that her friend told [...] Past hospitalizations: Hospitalized 8 years ago at [facility] Past suicide attempts: Denies Family psych history: Mother with bipolar disorder. Daughter with bipolar disorder. Previous medications: Seroquel, Risperdal IM, amantadine, Cogentin, lithium Alcohol and drug use: Denies alcohol or illicit drug use. Reports smoking 3 to 4 cigarettes/day. Living: Alone at [facility] Employment: Unemployed. Plans to retire next year. [...] equal bilaterally. CN XII: Tongue protrusion midline [facility] Medical History (Updated 03/12/23 @ 11:22 by [...] oral powder 17 g PO DAILY PRN Dodmhsmupdpe04/10/23 [History Confirmed 03/12/23] Exam Physical Exam Vital [...] <Electronically signed by Joe Davis MD> 03/12/23 1129 [facility] Work Phone: [phone]) 751-904909-28-2023 History general Narrative - Reported Includes: Medical History in patient's chart Description Last Updated 1 previous live (s) 02/28/2023 Last Documented On 3 9:51AM ; [facility] Previously 1 time(s) 02/28/2023 Last Documented On 3 9:51AM ; [facility] Previous hospitalizations 09/18/2022 Last Documented On 3 2:33PM ; [facility] Currently nursing 11/03/2021 Last Documented On 2 7:00PM ; [facility] status unknown for sexually tra nsmitted infection 11/03/2021 Last Documented On 2 7:00PM ; [facility] 11/03/2021 Last Documented On 2 7:00PM ; [facility] Not planning to have a baby in the next 12 months 11/03/2021 Last Documented On 2 7:00PM ; [facility] Heart Attack 03/2021 [facility] 1 07/09/2020 Last Documented On 1 10:59AM ; [facility] A recent immunization for flu 05/06/2020 Last Documented On 0 7:27PM ; [facility] Patient gave verbal consent for teleheal th 08/31/2019 Last Documented On 0 9:21AM ; [facility] History of abnormal electrocardiogram Last Documented On 9 2:12PM ; [facility] History of asthma 07/31/2018 Last Documented On 9 2:12PM ; [facility] History of cardiovascular disorder 07/31 Last Documented On 9 2:12PM ; [facility] History of respiratory disorder 07/31/19 19 Last Documented On 9 2:12PM ; [facility] History of bipolar disorder NOS 07/31/19 19 Last Documented On 9 2:12PM ; [facility] History of depression 07/31/2018 Last Documented On 9 2:12PM ; [facility] History of psychiatric disorders 019 Last Documented On 9 2:12PM ; [facility] Work Phone: 1(376) 776-214409-28-2023 Progress note* Progress note Date Encounter Last Documented by 02/28/2023 Medical Established Patient Last documented on 02/28/2023; 9:51 AM, Aaron Whitaker [employer]; [facility] Active Problems & Conditions - J20.9 - [...] arm pain, 5 days, 0 refills - [place] Carbonate 150 MG Oral Capsule one capsule [...] Bipolar disorder NOS Depression Heart Attack 03/2021 [facility]. Surgical: - General surgery right shoulder [...] BP-Sitting L111/76 mmHg BP Cuff SizeRegular Pulse Rate-Gtqxmow40 bpm Qnlvls05 in Wunwuo314 lbs 12.8 oz Body Mass Index24 kg/m2 Body Surface Area1.7 m2 Oxygen Waengjpajv68 % Vital Signs: - Systolic blood pressure [...] breast Outside Diagn Tests/Imaging: Mammogram - Screening ([id number]) EndCited StartCited- Other Topiramate 25 MG tablet [...] Defined 1 BENOIT-2 score was 0 02/28/2023, BENOTI-7 score [BENOIT-7] Feeling nervous, anxious or on [...] 0 pt : Not at all. [facility]07-12-2023 Evaluation note* Encounter Date Diagnosis Assessment Notes [...] Other specified postprocedural states (ICD-10 - Z98.890) [email or web address] Other 06-19-2023 Progress note* Progress note Date Encounter Last Documented by 11/19/2022 Medical Established Patient Last documented on 11/19/2022; 10:15 AM, Karla Clark CNP; [id number] [facility] Active Problems & Conditions - [...] HOURS NEEDED FOR WHEEZING/SHORTNESS OF BREATH (october equivalent), 30 days, 11 refills - Amantadine [...] EVERY DAY, 30 days, 11 refills - [place] Carbonate 300MG Oral Tablet 300 MG take [...] Bipolar disorder NOS Depression Heart Attack 03/2021 [facility]. Surgical: - General surgery right shoulder [...] BP-Sitting L133/60 mmHg BP Cuff SizeRegular Pulse Rate-Lsfwbng34 bpm Temp-Xfubyucp71.6 F Hjbrqj14 in Qzxgmq397 lbs 6.4 oz Body Mass Index23.6 kg/m2 Body Surface Area1.7 m2 Oxygen Vsulwlpwas60 % General Appearance: - Awake. - Alert. [...] (october sub equivalent), 30 days, 11 refills Colace [...] + 0 pt : Not at all. [facility]06-19-2023 Instructions Includes: Instructions for all patient encounters Instructions to patient Intervention and counseling on cessation of tobacco use, 3-10 minutes Discussed medication and nicotine replacement for tobacco cessation Last Documented On 3 8:54AM ; [facility] Intervention and counseling on cessation of tobacco use, 3-10 minutes Discussed medication and nicotine replacement for tobacco cessation Last Documented On 2 1:56PM ; [facility] Intervention and counseling on cessation of tobacco use, 3-10 minutes Last Documented On 0 2:07PM ; [facility] Return to the clinic if cond ition worsens or new symptoms arise Last Documented On 9 1:59PM ; [facility] Intervention and counseling on cessation of tobacco use, 3-10 minutes Last Documented On 9 10:39AM ; [facility] Education and Decision Aids were provided during visit for: Discussed nutritional needs teach healthy choices including fruits and vegetables Last Documented On 3 9:20AM ; [facility] Patient education about a pr oper diet Last Documented On 3 9:20AM ; [facility] Discussed concerns about exe rcise : promote physical activity Last Documented On 3 9:20AM ; [facility] Discussed nutritional needs teach healthy choices including fruits and vegetables Last Documented On 3 2:02PM ; [facility] Patient education about a pr oper diet Last Documented On 3 2:02PM ; [facility] Discussed concerns about exe rcise : promote physical activity Last Documented On 3 2:02PM ; [facility] Discussed nutritional needs teach healthy choices including fruits and vegetables Last Documented On 3 8:32AM ; [facility] Patient education about a pr oper diet Last Documented On 3 8:32AM ; [facility] Discussed concerns about exe rcise : promote physical activity Last Documented On 3 8:32AM ; [facility] Discussed nutritional needs teach healthy choices including fruits and vegetables Last Documented On 3 11:28AM ; [facility] Patient education about a pr oper diet Last Documented On 3 11:28AM ; [facility] Discussed concerns about exe rcise : promote physical activity Last Documented On 3 11:28AM ; [facility] Discussed nutritional needs teach healthy choices including fruits and vegetables Last Documented On 2 2:01PM ; [facility] Patient education about a pr oper diet Last Documented On 2 2:01PM ; [facility] Discussed concerns about exe rcise : promote physical activity Last Documented On 2 2:01PM ; [facility] Discussed nutritional needs teach healthy choices including fruits and vegetables Last Documented On 2 2:11PM ; [facility] Patient education about a pr oper diet Last Documented On 2 2:11PM ; [facility] Discussed concerns about exe rcise : promote physical activity Last Documented On 2 2:11PM ; [facility] Discussed current self-care methods/coping skills. ~Validated and normalized pt's feelings while assisting patient process recent events. ~Discussed ongoing counseling. ~Discussed lifestyle changes to address chronic illness. ~Supported patient's personal health goals ~wordfinds. walk, read, eat, enjoy my best friesnd Last Documented On 2 5:54PM ; [facility] Discussed nutritional needs teach healthy choices including fruits and vegetables Last Documented On 2 10:04AM ; [facility] Patient education about a pr oper diet Last Documented On 2 10:04AM ; [facility] Discussed concerns about exe rcise : promote physical activity Last Documented On 2 10:04AM ; [facility] Discussed nutritional needs teach healthy choices including fruits and vegetables Last Documented On 2 1:25PM ; [facility] Patient education about a pr oper diet Last Documented On 2 1:25PM ; [facility] Discussed concerns about exe rcise : promote physical activity Last Documented On 2 1:25PM ; [facility] Discussed nutritional needs teach healthy choices including fruits and vegetables Last Documented On 1 10:08AM ; [facility] Patient education about a pr oper diet Last Documented On 1 10:08AM ; [facility] Discussed concerns about exe rcise : promote physical activity Last Documented On 1 10:08AM ; [facility] Discussed nutritional needs teach healthy choices including fruits and vegetables Last Documented On 1 1:12PM ; [facility] Patient education about a pr oper diet Last Documented On 1 1:12PM ; [facility] Patient education about a pr oper diet Last Documented On 1 1:30PM ; [facility] Patient education about meal planning Last Documented On 1 1:30PM ; [facility] Education about changing eat ing habits Last Documented On 1 1:30PM ; [facility] Patient education about high fiber diet Last Documented On 1 1:30PM ; [facility] Patient education about low fat diet Last Documented On 1 1:30PM ; [facility] Patient education about low cholesterol diet Last Documented On 1 1:30PM ; [facility] Patient education about low carbohydrate diet Last Documented On 1 1:30PM ; [facility] Patient education about high protein diet Last Documented On 1 1:30PM ; [facility] Discussed concerns about exe rcise : promote physical activity Last Documented On 1 1:12PM ; [facility] Education/counseling conduct ed by pharmacist Last Documented On 0 1:39PM ; [facility] Vaccination counseling Last Documented On 0 1:39PM ; [facility] Discussed concerns about exe rcise : promote physical activity Last Documented On 0 2:16PM ; [facility] Patient goals decrease short ness of breath episodes Last Documented On 0 2:11PM ; [facility] Patient states that she uses her rescue [...] recently Last Documented On 0 2:24PM ; [facility] Patient education about a pr oper diet Last Documented On 0 2:54PM ; [facility] Patient education about meal planning Last Documented On 0 2:54PM ; [facility] Education about changing eat ing habits Last Documented On 0 2:54PM ; [facility] Patient education about high fiber diet Last Documented On 0 2:54PM ; [facility] Patient education about low fat diet Last Documented On 0 2:54PM ; [facility] Patient education about low cholesterol diet Last Documented On 0 2:54PM ; [facility] Patient education about low carbohydrate diet Last Documented On 0 2:54PM ; [facility] Patient education about high protein diet Last Documented On 0 2:54PM ; [facility] Discussed nutritional needs teach healthy choices including fruits and vegetables Last Documented On 0 11:11AM ; [facility] Patient education about a pr oper diet Last Documented On 0 11:11AM ; [facility] Patient education about a pr oper diet Last Documented On 0 11:28AM ; [facility] Patient education about meal planning Last Documented On 0 11:28AM ; [facility] Education about changing eat ing habits Last Documented On 0 11:28AM ; [facility] Patient education about high fiber diet Last Documented On 0 11:28AM ; [facility] Patient education about low fat diet Last Documented On 0 11:28AM ; [facility] Patient education about low cholesterol diet Last Documented On 0 11:28AM ; [facility] Patient education about low carbohydrate diet Last Documented On 0 11:28AM ; [facility] Patient education about high protein diet Last Documented On 0 11:28AM ; [facility] Discussed concerns about exe rcise : promote physical activity Last Documented On 0 11:11AM ; [facility] Education/counseling conduct ed by pharmacist Last Documented On 0 1:41PM ; [facility] Patient states that she lonnie gonzalez has [...] own Last Documented On 0 2:08PM ; [facility] Education/counseling conduct ed by pharmacist Last Documented On 9 1:12PM ; [facility] Patient states that she lonnie gonzalez has issues with her inhaler with the spacer. Patient did not bring in inhaler or spacer. Patient was told to bring in inhalers at next scheduled visit for pharmacist to assess inhalation technique. Patient is agreeable Last Documented On 9 1:13PM ; [facility] Patient goals Start using ch deon to help with inhaling dulera Last Documented On 9 2:40PM ; [facility] Patient states that she is g etting [...] vaccines Last Documented On 9 2:51PM ; [facility] Discussed nutritional needs teach healthy choices including fruits and vegetables Last Documented On 9 9:29AM ; [facility] Patient education about a pr oper diet Last Documented On 9 9:29AM ; [facility] Discussed concerns about exe rcise : promote physical activity Last Documented On 9 9:29AM ; [facility] Work Phone: 1(625) 395-597305-31-2023 Evaluation note* Encounter Date Diagnosis Assessment Notes [...] Other specified postprocedural states (ICD-10 - Z98.890) [email or web address] Other 05-05-2023 Evaluation note* Encounter Date Diagnosis Assessment Notes Treatment Notes Treatment Clinical Notes October, Other closed displaced fracture of proximal end of right humerus with routine healing, subsequent encounter (ICD-10 - S42.291D) [email or web address] Other 05-03-2023 Evaluation note* Encounter Date Diagnosis [...] as documented in the electronic medical record. [email or web address] Other 04-21-2023 Progress note* Progress note Date Encounter Last Documented by 09/21/2022 Chart Update Last documented on 09/21/2022; 4:58 PM, Karla Clark [facility]; [facility] Active Problems & Conditions - J45.909 - [...] Oral Tablet 5 days, 0 refills - [place] Carbonate 300MG Oral Tablet 300 MG take [...] Bipolar disorder NOS Depression Heart Attack 03/2021 [facility]. Surgical: - General surgery right shoulder [...] Vaccine Advance Directives - Advance Care Planning [facility]04-18-2023 History general Narrative - Reported Includes: Medical History in patient's chart Description Last Updated Previous hospitalizations 09/18/2022 Last Documented On 3 2:33PM ; [facility] Currently nursing 11/03/2021 Last Documented On 2 7:00PM ; [facility] status unknown for sexually tra nsmitted infection 11/03/2021 Last Documented On 2 7:00PM ; [facility] 11/03/2021 Last Documented On 2 7:00PM ; [facility] Not planning to have a baby in the next 12 months 11/03/2021 Last Documented On 2 7:00PM ; [facility] Heart Attack 03/2021 [facility] 1 07/09/2020 Last Documented On 1 10:59AM ; [facility] A recent immunization for flu 05/06/2020 Last Documented On 0 7:27PM ; [facility] Patient gave verbal consent for teleheal th 08/31/2019 Last Documented On 0 9:21AM ; [facility] History of abnormal electrocardiogram Last Documented On 9 2:12PM ; [facility] History of asthma 07/31/2018 Last Documented On 9 2:12PM ; [facility] History of cardiovascular disorder 07/31 Last Documented On 9 2:12PM ; [facility] History of respiratory disorder 07/31/19 19 Last Documented On 9 2:12PM ; [facility] History of bipolar disorder NOS 07/31/19 19 Last Documented On 9 2:12PM ; [facility] History of depression 07/31/2018 Last Documented On 9 2:12PM ; [facility] History of psychiatric disorders 019 Last Documented On 9 2:12PM ; [facility] Work Phone: 1(746) 535-933704-18-2023 Progress note* Progress note Date Encounter Last Documented by 09/18/2022 Medical Established Patient Last documented on 09/18/2022; 2:33 PM, Karla Clark CNP; [facility] Active Problems & Conditions - J45.909 [...] Patient had surgery on rotator cuff at [facility]. Referred Here Referred by emergency room. Prior [...] Oral Tablet 5 days, 0 refills - [place] Carbonate 300MG Oral Tablet 300 MG take [...] Bipolar disorder NOS Depression Heart Attack 03/2021 [facility]. Surgical: - Hysterectomy Social History Environmental [...] BP-Sitting L142/74 mmHg BP Cuff SizeRegular Pulse Rate-Ycbjqto27 bpm Temp-Vijnwnbf96.6 F Atirnc21 in Ecquqc388 lbs 12.8 oz Body Mass Index24.9 kg/m2 Body Surface Area1.7 m2 Oxygen Cchgzyydlv01 % General Appearance: - Awake. - Alert. [...] Tobacco Cessation Intervention and Counseling satisfied 09/18/2022. [facility]04-10-2023 Evaluation note* Encounter Date Diagnosis [...] - S42.291A) Gail is here today for [facility] follow-up of right shoulder fracture dislocation. Prior medical notes from [facility] have been reviewed today. Images have [...] poor healing. I have advised against the group home use of narcotic pain medication. I have advised to follow all post-operative instructions in order to obtain the best outcome. Informed consent has been verbally affirmed and signed as indicated. Plan for ORIF of right greater tuberosity. Beachchair positioning. Possible proximal humerus plate. Sep, Other See orders for this visit as documented in the electronic medical record. [email or web address] Other 04-06-2023 NoteEXAM: XR SHOULDER RT 1 V HISTORY: Pain ; post reduction evaluation COMPARISON: Right shoulder x-rays from same date TECHNIQUE: FINDINGS: The humeral head remains inferior to the glenoid. Stable displaced fracture of the greater tuberosity. IMPRESSION: 1. 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 Electronically authenticated by: HÉCTOR HO Date: 2022-09-06 14:58[facility]04-06-2023 NotePROCEDURE: XR HUMERUS RT MIN 2 [...] Electronically authenticated by: HÉCTOR HO Date: 2022-09-06 11:48[id number] NotePROCEDURE: XR HUMERUS RT MIN 2 V, [...] Electronically authenticated by: HÉCTOR HO Date: 2022-09-06 11:48[facility]03-27-2023 Progress note* Progress note Date Encounter Last Documented by 08/27/2022 Chart Update Last documented on 08/27/2022; 8:57 AM, Carolin ATWOOD; Health [facility] Active Problems & Conditions - [...] EVERY DAY, 30 days, 11 refills - [place] Carbonate 300MG Oral Tablet 300 MG take [...] total score: 0 pts (Scale: 0-6) PHQ2. [facility]03-27-2023 Progress note* Progress note Date Encounter Last Documented by 08/27/2022 Medical Established Patient Last documented on 08/27/2022; 9:20 AM, Karla Clark CNP; [facility] Active Problems & Conditions - J45.909 [...] EVERY DAY, 30 days, 11 refills - [place] Carbonate 300MG Oral Tablet 300 MG take [...] Bipolar disorder NOS Depression Heart Attack 03/2021 [facility]. Surgical: - Hysterectomy Social History Environmental [...] BP-Sitting L115/73 mmHg BP Cuff SizeRegular Pulse Rate-Mxrvdha12 bpm Temp-Kadahoio78 F Zarovz47 in Yzpqeg484 lbs 9.6 oz Body Mass Index24.6 kg/m2 Body Surface Area1.7 m2 Oxygen Movkhtirvb37 % General Appearance: - Appears distressed. - [...] Tobacco Cessation Intervention and Counseling satisfied 08/27/2022. [facility]03-27-2023 Instructions Includes: Instructions for all patient encounters Instructions to patient Intervention and counseling on cessation of tobacco use, 3-10 minutes Discussed medication and nicotine replacement for tobacco cessation Last Documented On 3 8:54AM ; [facility] Intervention and counseling on cessation of tobacco use, 3-10 minutes Discussed medication and nicotine replacement for tobacco cessation Last Documented On 2 1:56PM ; [facility] Intervention and counseling on cessation of tobacco use, 3-10 minutes Last Documented On 0 2:07PM ; [facility] Return to the clinic if cond ition worsens or new symptoms arise Last Documented On 9 1:59PM ; [facility] Intervention and counseling on cessation of tobacco use, 3-10 minutes Last Documented On 9 10:39AM ; [facility] Education and Decision Aids were provided during visit for: Discussed nutritional needs teach healthy choices including fruits and vegetables Last Documented On 3 9:37AM ; [facility] Patient education about a pr oper diet Last Documented On 3 9:37AM ; [facility] Discussed concerns about exe rcise : promote physical activity Last Documented On 3 9:37AM ; [facility] Not requesting contraception Last Documented On 3 9:37AM ; [facility] Discussed nutritional needs teach healthy choices including fruits and vegetables Last Documented On 3 9:20AM ; [facility] Patient education about a pr oper diet Last Documented On 3 9:20AM ; [facility] Discussed concerns about exe rcise : promote physical activity Last Documented On 3 9:20AM ; [facility] Discussed nutritional needs teach healthy choices including fruits and vegetables Last Documented On 3 2:02PM ; [facility] Patient education about a pr oper diet Last Documented On 3 2:02PM ; [facility] Discussed concerns about exe rcise : promote physical activity Last Documented On 3 2:02PM ; [facility] Discussed nutritional needs teach healthy choices including fruits and vegetables Last Documented On 3 8:32AM ; [facility] Patient education about a pr oper diet Last Documented On 3 8:32AM ; [facility] Discussed concerns about exe rcise : promote physical activity Last Documented On 3 8:32AM ; [facility] Discussed nutritional needs teach healthy choices including fruits and vegetables Last Documented On 3 11:28AM ; [facility] Patient education about a pr oper diet Last Documented On 3 11:28AM ; [facility] Discussed concerns about exe rcise : promote physical activity Last Documented On 3 11:28AM ; [facility] Discussed nutritional needs teach healthy choices including fruits and vegetables Last Documented On 2 2:01PM ; [facility] Patient education about a pr oper diet Last Documented On 2 2:01PM ; [facility] Discussed concerns about exe rcise : promote physical activity Last Documented On 2 2:01PM ; [facility] Discussed nutritional needs teach healthy choices including fruits and vegetables Last Documented On 2 2:11PM ; [facility] Patient education about a pr oper diet Last Documented On 2 2:11PM ; [facility] Discussed concerns about exe rcise : promote physical activity Last Documented On 2 2:11PM ; [facility] Discussed current self-care methods/coping skills. ~Validated and normalized pt's feelings while assisting patient process recent events. ~Discussed ongoing counseling. ~Discussed lifestyle changes to address chronic illness. ~Supported patient's personal health goals ~wordfinds. walk, read, eat, enjoy my best friesnd Last Documented On 2 5:54PM ; [facility] Discussed nutritional needs teach healthy choices including fruits and vegetables Last Documented On 2 10:04AM ; [facility] Patient education about a pr oper diet Last Documented On 2 10:04AM ; [facility] Discussed concerns about exe rcise : promote physical activity Last Documented On 2 10:04AM ; [facility] Discussed nutritional needs teach healthy choices including fruits and vegetables Last Documented On 2 1:25PM ; [facility] Patient education about a pr oper diet Last Documented On 2 1:25PM ; [facility] Discussed concerns about exe rcise : promote physical activity Last Documented On 2 1:25PM ; [facility] Discussed nutritional needs teach healthy choices including fruits and vegetables Last Documented On 1 10:08AM ; [facility] Patient education about a pr oper diet Last Documented On 1 10:08AM ; [facility] Discussed concerns about exe rcise : promote physical activity Last Documented On 1 10:08AM ; [facility] Discussed nutritional needs teach healthy choices including fruits and vegetables Last Documented On 1 1:12PM ; [facility] Patient education about a pr oper diet Last Documented On 1 1:12PM ; [facility] Patient education about a pr oper diet Last Documented On 1 1:30PM ; [facility] Patient education about meal planning Last Documented On 1 1:30PM ; [facility] Education about changing eat ing habits Last Documented On 1 1:30PM ; [facility] Patient education about high fiber diet Last Documented On 1 1:30PM ; [facility] Patient education about low fat diet Last Documented On 1 1:30PM ; [facility] Patient education about low cholesterol diet Last Documented On 1 1:30PM ; [facility] Patient education about low carbohydrate diet Last Documented On 1 1:30PM ; [facility] Patient education about high protein diet Last Documented On 1 1:30PM ; [facility] Discussed concerns about exe rcise : promote physical activity Last Documented On 1 1:12PM ; [facility] Education/counseling conduct ed by pharmacist Last Documented On 0 1:39PM ; [facility] Vaccination counseling Last Documented On 0 1:39PM ; [facility] Discussed concerns about exe rcise : promote physical activity Last Documented On 0 2:16PM ; [facility] Patient goals decrease short ness of breath episodes Last Documented On 0 2:11PM ; [facility] Patient states that she uses her rescue [...] recently Last Documented On 0 2:24PM ; [facility] Patient education about a pr oper diet Last Documented On 0 2:54PM ; [facility] Patient education about meal planning Last Documented On 0 2:54PM ; [facility] Education about changing eat ing habits Last Documented On 0 2:54PM ; [facility] Patient education about high fiber diet Last Documented On 0 2:54PM ; [facility] Patient education about low fat diet Last Documented On 0 2:54PM ; [facility] Patient education about low cholesterol diet Last Documented On 0 2:54PM ; [facility] Patient education about low carbohydrate diet Last Documented On 0 2:54PM ; [facility] Patient education about high protein diet Last Documented On 0 2:54PM ; [facility] Discussed nutritional needs teach healthy choices including fruits and vegetables Last Documented On 0 11:11AM ; [facility] Patient education about a pr oper diet Last Documented On 0 11:11AM ; [facility] Patient education about a pr oper diet Last Documented On 0 11:28AM ; [facility] Patient education about meal planning Last Documented On 0 11:28AM ; [facility] Education about changing eat ing habits Last Documented On 0 11:28AM ; [facility] Patient education about high fiber diet Last Documented On 0 11:28AM ; [facility] Patient education about low fat diet Last Documented On 0 11:28AM ; [facility] Patient education about low cholesterol diet Last Documented On 0 11:28AM ; [facility] Patient education about low carbohydrate diet Last Documented On 0 11:28AM ; [facility] Patient education about high protein diet Last Documented On 0 11:28AM ; [facility] Discussed concerns about exe rcise : promote physical activity Last Documented On 0 11:11AM ; [facility] Education/counseling conduct ed by pharmacist Last Documented On 0 1:41PM ; [facility] Patient states that she lonnie gonzalez has [...] own Last Documented On 0 2:08PM ; [facility] Education/counseling conduct ed by pharmacist Last Documented On 9 1:12PM ; [facility] Patient states that she lonnie gonzalez has issues with her inhaler with the spacer. Patient did not bring in inhaler or spacer. Patient was told to bring in inhalers at next scheduled visit for pharmacist to assess inhalation technique. Patient is agreeable Last Documented On 9 1:13PM ; [facility] Patient goals Start using ch deon to help with inhaling dulera Last Documented On 9 2:40PM ; [facility] Patient states that she is g etting [...] vaccines Last Documented On 9 2:51PM ; [facility] Discussed nutritional needs teach healthy choices including fruits and vegetables Last Documented On 9 9:29AM ; [facility] Patient education about a pr oper diet Last Documented On 9 9:29AM ; [facility] Discussed concerns about exe rcise : promote physical activity Last Documented On 9 9:29AM ; [facility] Work Phone: [phone](335) 210-863303-27-2023 Instructions Includes: Instructions for all patient encounters Instructions to patient Intervention and counseling on cessation of tobacco use, 3-10 minutes Discussed medication and nicotine replacement for tobacco cessation Last Documented On 3 8:54AM ; [facility] Intervention and counseling on cessation of tobacco use, 3-10 minutes Discussed medication and nicotine replacement for tobacco cessation Last Documented On 2 1:56PM ; [facility] Intervention and counseling on cessation of tobacco use, 3-10 minutes Last Documented On 0 2:07PM ; [facility] Return to the clinic if cond ition worsens or new symptoms arise Last Documented On 9 1:59PM ; [facility] Intervention and counseling on cessation of tobacco use, 3-10 minutes Last Documented On 9 10:39AM ; [facility] Education and Decision Aids were provided during visit for: Discussed nutritional needs teach healthy choices including fruits and vegetables Last Documented On 3 8:32AM ; [facility] Patient education about a pr oper diet Last Documented On 3 8:32AM ; [facility] Discussed concerns about exe rcise : promote physical activity Last Documented On 3 8:32AM ; [facility] Discussed nutritional needs teach healthy choices including fruits and vegetables Last Documented On 3 11:28AM ; [facility] Patient education about a pr oper diet Last Documented On 3 11:28AM ; [facility] Discussed concerns about exe rcise : promote physical activity Last Documented On 3 11:28AM ; [facility] Discussed nutritional needs teach healthy choices including fruits and vegetables Last Documented On 2 2:01PM ; [facility] Patient education about a pr oper diet Last Documented On 2 2:01PM ; [facility] Discussed concerns about exe rcise : promote physical activity Last Documented On 2 2:01PM ; [facility] Discussed nutritional needs teach healthy choices including fruits and vegetables Last Documented On 2 2:11PM ; [facility] Patient education about a pr oper diet Last Documented On 2 2:11PM ; [facility] Discussed concerns about exe rcise : promote physical activity Last Documented On 2 2:11PM ; [facility] Discussed current self-care methods/coping skills. ~Validated and normalized pt's feelings while assisting patient process recent events. ~Discussed ongoing counseling. ~Discussed lifestyle changes to address chronic illness. ~Supported patient's personal health goals ~wordfinds. walk, read, eat, enjoy my best friesnd Last Documented On 2 5:54PM ; [facility] Discussed nutritional needs teach healthy choices including fruits and vegetables Last Documented On 2 10:04AM ; [facility] Patient education about a pr oper diet Last Documented On 2 10:04AM ; [facility] Discussed concerns about exe rcise : promote physical activity Last Documented On 2 10:04AM ; [facility] Discussed nutritional needs teach healthy choices including fruits and vegetables Last Documented On 2 1:25PM ; [facility] Patient education about a pr oper diet Last Documented On 2 1:25PM ; [facility] Discussed concerns about exe rcise : promote physical activity Last Documented On 2 1:25PM ; [facility] Discussed nutritional needs teach healthy choices including fruits and vegetables Last Documented On 1 10:08AM ; [facility] Patient education about a pr oper diet Last Documented On 1 10:08AM ; [facility] Discussed concerns about exe rcise : promote physical activity Last Documented On 1 10:08AM ; [facility] Discussed nutritional needs teach healthy choices including fruits and vegetables Last Documented On 1 1:12PM ; [facility] Patient education about a pr oper diet Last Documented On 1 1:12PM ; [facility] Patient education about a pr oper diet Last Documented On 1 1:30PM ; [facility] Patient education about meal planning Last Documented On 1 1:30PM ; [facility] Education about changing eat ing habits Last Documented On 1 1:30PM ; [facility] Patient education about high fiber diet Last Documented On 1 1:30PM ; [facility] Patient education about low fat diet Last Documented On 1 1:30PM ; [facility] Patient education about low cholesterol diet Last Documented On 1 1:30PM ; [facility] Patient education about low carbohydrate diet Last Documented On 1 1:30PM ; [facility] Patient education about high protein diet Last Documented On 1 1:30PM ; [facility] Discussed concerns about exe rcise : promote physical activity Last Documented On 1 1:12PM ; [facility] Education/counseling conduct ed by pharmacist Last Documented On 0 1:39PM ; [facility] Vaccination counseling Last Documented On 0 1:39PM ; [facility] Discussed concerns about exe rcise : promote physical activity Last Documented On 0 2:16PM ; [facility] Patient goals decrease short ness of breath episodes Last Documented On 0 2:11PM ; [facility] Patient states that she uses her rescue [...] recently Last Documented On 0 2:24PM ; [facility] Patient education about a pr oper diet Last Documented On 0 2:54PM ; [facility] Patient education about meal planning Last Documented On 0 2:54PM ; [facility] Education about changing eat ing habits Last Documented On 0 2:54PM ; [facility] Patient education about high fiber diet Last Documented On 0 2:54PM ; [facility] Patient education about low fat diet Last Documented On 0 2:54PM ; [facility] Patient education about low cholesterol diet Last Documented On 0 2:54PM ; [facility] Patient education about low carbohydrate diet Last Documented On 0 2:54PM ; [facility] Patient education about high protein diet Last Documented On 0 2:54PM ; [facility] Discussed nutritional needs teach healthy choices including fruits and vegetables Last Documented On 0 11:11AM ; [facility] Patient education about a pr oper diet Last Documented On 0 11:11AM ; [facility] Patient education about a pr oper diet Last Documented On 0 11:28AM ; [facility] Patient education about meal planning Last Documented On 0 11:28AM ; [facility] Education about changing eat ing habits Last Documented On 0 11:28AM ; [facility] Patient education about high fiber diet Last Documented On 0 11:28AM ; [facility] Patient education about low fat diet Last Documented On 0 11:28AM ; [facility] Patient education about low cholesterol diet Last Documented On 0 11:28AM ; [facility] Patient education about low carbohydrate diet Last Documented On 0 11:28AM ; [facility] Patient education about high protein diet Last Documented On 0 11:28AM ; [facility] Discussed concerns about exe rcise : promote physical activity Last Documented On 0 11:11AM ; [facility] Education/counseling conduct ed by pharmacist Last Documented On 0 1:41PM ; [facility] Patient states that she stil l has issues using inhaler. Patient brought in [...] own Last Documented On 0 2:08PM ; [facility] Education/counseling conduct ed by pharmacist Last Documented On 9 1:12PM ; [facility] Patient states that she lonnie gonzalez has issues with her inhaler with the spacer. Patient did not bring in inhaler or spacer. Patient was told to bring in inhalers at next scheduled visit for pharmacist to assess inhalation technique. Patient is agreeable Last Documented On 9 1:13PM ; [facility] Patient goals Start using ch deon to help with inhaling dulera Last Documented On 9 2:40PM ; [facility] Patient states that she is g etting [...] vaccines Last Documented On 9 2:51PM ; [facility] Discussed nutritional needs teach healthy choices including fruits and vegetables Last Documented On 9 9:29AM ; [facility] Patient education about a pr oper diet Last Documented On 9 9:29AM ; [facility] Discussed concerns about exe rcise : promote physical activity Last Documented On 9 9:29AM ; [facility] Work Phone: [phone]) 751-541503-27-2023 Instructions Includes: Instructions for all patient encounters Instructions to patient Intervention and counseling on cessation of tobacco use, 3-10 minutes Discussed medication and nicotine replacement for tobacco cessation Last Documented On 3 8:54AM ; [facility] Intervention and counseling on cessation of tobacco use, 3-10 minutes Discussed medication and nicotine replacement for tobacco cessation Last Documented On 2 1:56PM ; [facility] Intervention and counseling on cessation of tobacco use, 3-10 minutes Last Documented On 0 2:07PM ; [facility] Return to the clinic if cond ition worsens or new symptoms arise Last Documented On 9 1:59PM ; [facility] Intervention and counseling on cessation of tobacco use, 3-10 minutes Last Documented On 9 10:39AM ; [facility] Education and Decision Aids were provided during visit for: Discussed nutritional needs teach healthy choices including fruits and vegetables Last Documented On 3 8:32AM ; [facility] Patient education about a pr oper diet Last Documented On 3 8:32AM ; [facility] Discussed concerns about exe rcise : promote physical activity Last Documented On 3 8:32AM ; [facility] Discussed nutritional needs teach healthy choices including fruits and vegetables Last Documented On 3 11:28AM ; [facility] Patient education about a pr oper diet Last Documented On 3 11:28AM ; [facility] Discussed concerns about exe rcise : promote physical activity Last Documented On 3 11:28AM ; [facility] Discussed nutritional needs teach healthy choices including fruits and vegetables Last Documented On 2 2:01PM ; [facility] Patient education about a pr oper diet Last Documented On 2 2:01PM ; [facility] Discussed concerns about exe rcise : promote physical activity Last Documented On 2 2:01PM ; [facility] Discussed nutritional needs teach healthy choices including fruits and vegetables Last Documented On 2 2:11PM ; [facility] Patient education about a pr oper diet Last Documented On 2 2:11PM ; [facility] Discussed concerns about exe rcise : promote physical activity Last Documented On 2 2:11PM ; [facility] Discussed current self-care methods/coping skills. ~Validated and normalized pt's feelings while assisting patient process recent events. ~Discussed ongoing counseling. ~Discussed lifestyle changes to address chronic illness. ~Supported patient's personal health goals ~wordfinds. walk, read, eat, enjoy my best friesnd Last Documented On 2 5:54PM ; [facility] Discussed nutritional needs teach healthy choices including fruits and vegetables Last Documented On 2 10:04AM ; [facility] Patient education about a pr oper diet Last Documented On 2 10:04AM ; [facility] Discussed concerns about exe rcise : promote physical activity Last Documented On 2 10:04AM ; [facility] Discussed nutritional needs teach healthy choices including fruits and vegetables Last Documented On 2 1:25PM ; [facility] Patient education about a pr oper diet Last Documented On 2 1:25PM ; [facility] Discussed concerns about exe rcise : promote physical activity Last Documented On 2 1:25PM ; [facility] Discussed nutritional needs teach healthy choices including fruits and vegetables Last Documented On 1 10:08AM ; [facility] Patient education about a pr oper diet Last Documented On 1 10:08AM ; [facility] Discussed concerns about exe rcise : promote physical activity Last Documented On 1 10:08AM ; [facility] Discussed nutritional needs teach healthy choices including fruits and vegetables Last Documented On 1 1:12PM ; [facility] Patient education about a pr oper diet Last Documented On 1 1:12PM ; [facility] Patient education about a pr oper diet Last Documented On 1 1:30PM ; [facility] Patient education about meal planning Last Documented On 1 1:30PM ; [facility] Education about changing eat ing habits Last Documented On 1 1:30PM ; [facility] Patient education about high fiber diet Last Documented On 1 1:30PM ; [facility] Patient education about low fat diet Last Documented On 1 1:30PM ; [facility] Patient education about low cholesterol diet Last Documented On 1 1:30PM ; [facility] Patient education about low carbohydrate diet Last Documented On 1 1:30PM ; [facility] Patient education about high protein diet Last Documented On 1 1:30PM ; [facility] Discussed concerns about exe rcise : promote physical activity Last Documented On 1 1:12PM ; [facility] Education/counseling conduct ed by pharmacist Last Documented On 0 1:39PM ; [facility] Vaccination counseling Last Documented On 0 1:39PM ; [facility] Discussed concerns about exe rcise : promote physical activity Last Documented On 0 2:16PM ; [facility] Patient goals decrease short ness of breath episodes Last Documented On 0 2:11PM ; [facility] Patient states that she uses her rescue [...] recently Last Documented On 0 2:24PM ; [facility] Patient education about a pr oper diet Last Documented On 0 2:54PM ; [facility] Patient education about meal planning Last Documented On 0 2:54PM ; [facility] Education about changing eat ing habits Last Documented On 0 2:54PM ; [facility] Patient education about high fiber diet Last Documented On 0 2:54PM ; [facility] Patient education about low fat diet Last Documented On 0 2:54PM ; [facility] Patient education about low cholesterol diet Last Documented On 0 2:54PM ; [facility] Patient education about low carbohydrate diet Last Documented On 0 2:54PM ; [facility] Patient education about high protein diet Last Documented On 0 2:54PM ; [facility] Discussed nutritional needs teach healthy choices including fruits and vegetables Last Documented On 0 11:11AM ; [facility] Patient education about a pr oper diet Last Documented On 0 11:11AM ; [facility] Patient education about a pr oper diet Last Documented On 0 11:28AM ; [facility] Patient education about meal planning Last Documented On 0 11:28AM ; [facility] Education about changing eat ing habits Last Documented On 0 11:28AM ; [facility] Patient education about high fiber diet Last Documented On 0 11:28AM ; [facility] Patient education about low fat diet Last Documented On 0 11:28AM ; [facility] Patient education about low cholesterol diet Last Documented On 0 11:28AM ; [facility] Patient education about low carbohydrate diet Last Documented On 0 11:28AM ; [facility] Patient education about high protein diet Last Documented On 0 11:28AM ; [facility] Discussed concerns about exe rcise : promote physical activity Last Documented On 0 11:11AM ; [facility] Education/counseling conduct ed by pharmacist Last Documented On 0 1:41PM ; [facility] Patient states that she lonnie gonzalez has [...] own Last Documented On 0 2:08PM ; [facility] Education/counseling conduct ed by pharmacist Last Documented On 9 1:12PM ; [facility] Patient states that she lonnie gonzalez has issues with her inhaler with the spacer. Patient did not bring in inhaler or spacer. Patient was told to bring in inhalers at next scheduled visit for pharmacist to assess inhalation technique. Patient is agreeable Last Documented On 9 1:13PM ; [facility] Patient goals Start using ch deon to help with inhaling dulera Last Documented On 9 2:40PM ; [facility] Patient states that she is g etting [...] vaccines Last Documented On 9 2:51PM ; [facility] Discussed nutritional needs teach healthy choices including fruits and vegetables Last Documented On 9 9:29AM ; [facility] Patient education about a pr oper diet Last Documented On 9 9:29AM ; [facility] Discussed concerns about exe rcise : promote physical activity Last Documented On 9 9:29AM ; [facility] Work Phone: [phone] Instructions Includes: Instructions for all patient encounters Instructions to patient Intervention and counseling on cessation of tobacco use, 3-10 minutes Discussed medication and nicotine replacement for tobacco cessation Last Documented On 3 8:54AM ; [facility] Intervention and counseling on cessation of tobacco use, 3-10 minutes Discussed medication and nicotine replacement for tobacco cessation Last Documented On 2 1:56PM ; [facility] Intervention and counseling on cessation of tobacco use, 3-10 minutes Last Documented On 0 2:07PM ; [facility] Return to the clinic if cond ition worsens or new symptoms arise Last Documented On 9 1:59PM ; [facility] Intervention and counseling on cessation of tobacco use, 3-10 minutes Last Documented On 9 10:39AM ; [facility] Education and Decision Aids were provided during visit for: Discussed nutritional needs teach healthy choices including fruits and vegetables Last Documented On 3 8:32AM ; [facility] Patient education about a pr oper diet Last Documented On 3 8:32AM ; [facility] Discussed concerns about exe rcise : promote physical activity Last Documented On 3 8:32AM ; [facility] Discussed nutritional needs teach healthy choices including fruits and vegetables Last Documented On 3 11:28AM ; [facility] Patient education about a pr oper diet Last Documented On 3 11:28AM ; [facility] Discussed concerns about exe rcise : promote physical activity Last Documented On 3 11:28AM ; [facility] Discussed nutritional needs teach healthy choices including fruits and vegetables Last Documented On 2 2:01PM ; [facility] Patient education about a pr oper diet Last Documented On 2 2:01PM ; [facility] Discussed concerns about exe rcise : promote physical activity Last Documented On 2 2:01PM ; [facility] Discussed nutritional needs teach healthy choices including fruits and vegetables Last Documented On 2 2:11PM ; [facility] Patient education about a pr oper diet Last Documented On 2 2:11PM ; [facility] Discussed concerns about exe rcise : promote physical activity Last Documented On 2 2:11PM ; [facility] Discussed current self-care methods/coping skills. ~Validated and normalized pt's feelings while assisting patient process recent events. ~Discussed ongoing counseling. ~Discussed lifestyle changes to address chronic illness. ~Supported patient's personal health goals ~wordfinds. walk, read, eat, enjoy my best friesnd Last Documented On 2 5:54PM ; [facility] Discussed nutritional needs teach healthy choices including fruits and vegetables Last Documented On 2 10:04AM ; [facility] Patient education about a pr oper diet Last Documented On 2 10:04AM ; [facility] Discussed concerns about exe rcise : promote physical activity Last Documented On 2 10:04AM ; [facility] Discussed nutritional needs teach healthy choices including fruits and vegetables Last Documented On 2 1:25PM ; [facility] Patient education about a pr oper diet Last Documented On 2 1:25PM ; [facility] Discussed concerns about exe rcise : promote physical activity Last Documented On 2 1:25PM ; [facility] Discussed nutritional needs teach healthy choices including fruits and vegetables Last Documented On 1 10:08AM ; [facility] Patient education about a pr oper diet Last Documented On 1 10:08AM ; [facility] Discussed concerns about exe rcise : promote physical activity Last Documented On 1 10:08AM ; [facility] Discussed nutritional needs teach healthy choices including fruits and vegetables Last Documented On 1 1:12PM ; [facility] Patient education about a pr oper diet Last Documented On 1 1:12PM ; [facility] Patient education about a pr oper diet Last Documented On 1 1:30PM ; [facility] Patient education about meal planning Last Documented On 1 1:30PM ; [facility] Education about changing eat ing habits Last Documented On 1 1:30PM ; [facility] Patient education about high fiber diet Last Documented On 1 1:30PM ; [facility] Patient education about low fat diet Last Documented On 1 1:30PM ; [facility] Patient education about low cholesterol diet Last Documented On 1 1:30PM ; [facility] Patient education about low carbohydrate diet Last Documented On 1 1:30PM ; [facility] Patient education about high protein diet Last Documented On 1 1:30PM ; [facility] Discussed concerns about exe rcise : promote physical activity Last Documented On 1 1:12PM ; [facility] Education/counseling conduct ed by pharmacist Last Documented On 0 1:39PM ; [facility] Vaccination counseling Last Documented On 0 1:39PM ; [facility] Discussed concerns about exe rcise : promote physical activity Last Documented On 0 2:16PM ; [facility] Patient goals decrease short ness of breath episodes Last Documented On 0 2:11PM ; [facility] Patient states that she uses her rescue [...] recently Last Documented On 0 2:24PM ; [facility] Patient education about a pr oper diet Last Documented On 0 2:54PM ; [facility] Patient education about meal planning Last Documented On 0 2:54PM ; [facility] Education about changing eat ing habits Last Documented On 0 2:54PM ; [facility] Patient education about high fiber diet Last Documented On 0 2:54PM ; [facility] Patient education about low fat diet Last Documented On 0 2:54PM ; [facility] Patient education about low cholesterol diet Last Documented On 0 2:54PM ; [facility] Patient education about low carbohydrate diet Last Documented On 0 2:54PM ; [facility] Patient education about high protein diet Last Documented On 0 2:54PM ; [facility] Discussed nutritional needs teach healthy choices including fruits and vegetables Last Documented On 0 11:11AM ; [facility] Patient education about a pr oper diet Last Documented On 0 11:11AM ; [facility] Patient education about a pr oper diet Last Documented On 0 11:28AM ; [facility] Patient education about meal planning Last Documented On 0 11:28AM ; [facility] Education about changing eat ing habits Last Documented On 0 11:28AM ; [facility] Patient education about high fiber diet Last Documented On 0 11:28AM ; [facility] Patient education about low fat diet Last Documented On 0 11:28AM ; [facility] Patient education about low cholesterol diet Last Documented On 0 11:28AM ; [facility] Patient education about low carbohydrate diet Last Documented On 0 11:28AM ; [facility] Patient education about high protein diet Last Documented On 0 11:28AM ; [facility] Discussed concerns about exe rcise : promote physical activity Last Documented On 0 11:11AM ; [facility] Education/counseling conduct ed by pharmacist Last Documented On 0 1:41PM ; [facility] Patient states that she lonnie gonzalez has [...] own Last Documented On 0 2:08PM ; [facility] Education/counseling conduct ed by pharmacist Last Documented On 9 1:12PM ; [facility] Patient states that she lonnie gonzalez has issues with her inhaler with the spacer. Patient did not bring in inhaler or spacer. Patient was told to bring in inhalers at next scheduled visit for pharmacist to assess inhalation technique. Patient is agreeable Last Documented On 9 1:13PM ; [facility] Patient goals Start using ch deon to help with inhaling dulera Last Documented On 9 2:40PM ; [facility] Patient states that she is g etting [...] vaccines Last Documented On 9 2:51PM ; [facility] Discussed nutritional needs teach healthy choices including fruits and vegetables Last Documented On 9 9:29AM ; [facility] Patient education about a pr oper diet Last Documented On 9 9:29AM ; [facility] Discussed concerns about exe rcise : promote physical activity Last Documented On 9 9:29AM ; [facility] Work Phone: [phone] 975-716601-16-2023 Progress note* Progress note Date Encounter Last Documented by 06/18/2022 Medical Established Patient Last documented on 06/18/2022; 12:11 PM, Karla Clark CNP; [facility] Active Problems & Conditions - R94.31 - [...] been COVID tested last Saturday at the [facility] and was negative. Ear issues started [...] EVERY DAY, 30 days, 11 refills - [place] Carbonate 300MG Oral Tablet 300 MG take [...] Bipolar disorder NOS Depression Heart Attack 03/2021 [facility]. Surgical: - Hysterectomy Social History Environmental [...] BP-Sitting L125/78 mmHg BP Cuff SizeRegular Pulse Rate-Abiwrfq89 bpm Temp-Bunhyjmy52.6 F Hzhjdg84 in Lhdnff888 lbs 3.2 oz Body Mass Index24.9 kg/m2 Body Surface Area1.7 m2 Oxygen Ecojtfdlom61 % General Appearance: - Awake. - Alert. 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 [facility]01-16-2023 Instructions Includes: Instructions for all patient encounters Instructions to patient Intervention and counseling on cessation of tobacco use, 3-10 minutes Discussed medication and nicotine replacement for tobacco cessation Last Documented On 1:56PM ; [facility] Intervention and counseling on cessation of tobacco use, 3-10 minutes Last Documented On 0 2:07PM ; [facility] Return to the clinic if cond ition worsens or new symptoms arise Last Documented On 9 1:59PM ; [facility] Intervention and counseling on cessation of tobacco use, 3-10 minutes Last Documented On 9 10:39AM ; [facility] Education and Decision Aids were provided during visit for: Discussed nutritional needs teach healthy choices including fruits and vegetables Last Documented On 3 11:28AM ; [facility] Patient education about a pr oper diet Last Documented On 3 11:28AM ; [facility] Discussed concerns about exe rcise : promote physical activity Last Documented On 3 11:28AM ; [facility] Discussed nutritional needs teach healthy choices including fruits and vegetables Last Documented On 2 2:01PM ; [facility] Patient education about a pr oper diet Last Documented On 2 2:01PM ; [facility] Discussed concerns about exe rcise : promote physical activity Last Documented On 2 2:01PM ; [facility] Discussed nutritional needs teach healthy choices including fruits and vegetables Last Documented On 2 2:11PM ; [facility] Patient education about a pr oper diet Last Documented On 2 2:11PM ; [facility] Discussed concerns about exe rcise : promote physical activity Last Documented On 2 2:11PM ; [facility] Discussed current self-care methods/coping skills. ~Validated and normalized pt's feelings while assisting patient process recent events. ~Discussed ongoing counseling. ~Discussed lifestyle changes to address chronic illness. ~Supported patient's personal health goals ~wordfinds. walk, read, eat, enjoy my best friesnd Last Documented On 2 5:54PM ; [facility] Discussed nutritional needs teach healthy choices including fruits and vegetables Last Documented On 2 10:04AM ; [facility] Patient education about a pr oper diet Last Documented On 2 10:04AM ; [facility] Discussed concerns about exe rcise : promote physical activity Last Documented On 2 10:04AM ; [facility] Discussed nutritional needs teach healthy choices including fruits and vegetables Last Documented On 2 1:25PM ; [facility] Patient education about a pr oper diet Last Documented On 2 1:25PM ; [facility] Discussed concerns about exe rcise : promote physical activity Last Documented On 2 1:25PM ; [facility] Discussed nutritional needs teach healthy choices including fruits and vegetables Last Documented On 1 10:08AM ; [facility] Patient education about a pr oper diet Last Documented On 1 10:08AM ; [facility] Discussed concerns about exe rcise : promote physical activity Last Documented On 1 10:08AM ; [facility] Discussed nutritional needs teach healthy choices including fruits and vegetables Last Documented On 1 1:12PM ; [facility] Patient education about a pr oper diet Last Documented On 1 1:12PM ; [facility] Patient education about a pr oper diet Last Documented On 1 1:30PM ; [facility] Patient education about meal planning Last Documented On 1 1:30PM ; [facility] Education about changing eat ing habits Last Documented On 1 1:30PM ; [facility] Patient education about high fiber diet Last Documented On 1 1:30PM ; [facility] Patient education about low fat diet Last Documented On 1 1:30PM ; [facility] Patient education about low cholesterol diet Last Documented On 1 1:30PM ; [facility] Patient education about low carbohydrate diet Last Documented On 1 1:30PM ; [facility] Patient education about high protein diet Last Documented On 1 1:30PM ; [facility] Discussed concerns about exe rcise : promote physical activity Last Documented On 1 1:12PM ; [facility] Education/counseling conduct ed by pharmacist Last Documented On 0 1:39PM ; [facility] Vaccination counseling Last Documented On 0 1:39PM ; [facility] Discussed concerns about exe rcise : promote physical activity Last Documented On 0 2:16PM ; [facility] Patient goals decrease short ness of breath episodes Last Documented On 0 2:11PM ; [facility] Patient states that she uses her rescue [...] recently Last Documented On 0 2:24PM ; [facility] Patient education about a pr oper diet Last Documented On 0 2:54PM ; [facility] Patient education about meal planning Last Documented On 0 2:54PM ; [facility] Education about changing eat ing habits Last Documented On 0 2:54PM ; [facility] Patient education about high fiber diet Last Documented On 0 2:54PM ; [facility] Patient education about low fat diet Last Documented On 0 2:54PM ; [facility] Patient education about low cholesterol diet Last Documented On 0 2:54PM ; [facility] Patient education about low carbohydrate diet Last Documented On 0 2:54PM ; [facility] Patient education about high protein diet Last Documented On 0 2:54PM ; [facility] Discussed nutritional needs teach healthy choices including fruits and vegetables Last Documented On 0 11:11AM ; [facility] Patient education about a pr oper diet Last Documented On 0 11:11AM ; [facility] Patient education about a pr oper diet Last Documented On 0 11:28AM ; [facility] Patient education about meal planning Last Documented On 0 11:28AM ; [facility] Education about changing eat ing habits Last Documented On 0 11:28AM ; [facility] Patient education about high fiber diet Last Documented On 0 11:28AM ; [facility] Patient education about low fat diet Last Documented On 0 11:28AM ; [facility] Patient education about low cholesterol diet Last Documented On 0 11:28AM ; [facility] Patient education about low carbohydrate diet Last Documented On 0 11:28AM ; [facility] Patient education about high protein diet Last Documented On 0 11:28AM ; [facility] Discussed concerns about exe rcise : promote physical activity Last Documented On 0 11:11AM ; [facility] Education/counseling conduct ed by pharmacist Last Documented On 0 1:41PM ; [facility] Patient states that she lonnie gonzalez has [...] own Last Documented On 0 2:08PM ; [facility] Education/counseling conduct ed by pharmacist Last Documented On 9 1:12PM ; [facility] Patient states that she lonnie gonzalez has issues with her inhaler with the spacer. Patient did not bring in inhaler or spacer. Patient was told to bring in inhalers at next scheduled visit for pharmacist to assess inhalation technique. Patient is agreeable Last Documented On 9 1:13PM ; [facility] Patient goals Start using ch deon to help with inhaling dulera Last Documented On 9 2:40PM ; [facility] Patient states that she is g etting [...] vaccines Last Documented On 9 2:51PM ; [facility] Discussed nutritional needs teach healthy choices including fruits and vegetables Last Documented On 9 9:29AM ; [facility] Patient education about a pr oper diet Last Documented On 9 9:29AM ; [facility] Discussed concerns about exe rcise : promote physical activity Last Documented On 9 9:29AM ; [facility] Work Phone: 1([phone]) 169-999310-18-2022 Evaluation note Includes: Assessments for all patient encounters Findings Encounter Date Bipolar disorder NOS Established Pita ent with [facility]in Feliz [facility] 03/20/2022 Schizoaffective disorder Established Patient with Yin Feliz [facility] 03/20/2022 No cough Medical Established Patient with Karla Clark [facility] 12/20/2021 Visit for: screening for hum an immunodeficiency virus Medical Established Patient with Karla Clark [facility] 12/20/2021 Z68.24 - Body mass index [BM I] 24.0-24.9, adult Medical Established Patient with Karla Clark [facility] 12/20/2021 Bipolar disorder NOS BH Established Pita ent with Yinguanako Feliz [facility] 11/03/2021 Bipolar schizoaffective disorder BH Esta blished Patient with Yin Reedermons [facility] 11/03/2021 PLAN Medical Established Patient with [...] Medical Establish ed Patient with Karla Amber [facility] 05/08/2021 Diabetes Risk Test Score was four score 05/08/2021 Medical Established Patient with Karlanaveed Clark [facility] 05/08/2021 Routine adult history and ph ysical (18-64 yrs) without abnormal findings Medical Established Patient with Karlanaveed Clark [facility] 05/08/2021 Z68.24 - Body mass index [BM I] 24.0-24.9, adult Medical Established Patient with Karla Clark [facility] 05/08/2021 Z68.24 - Body mass index [BM I] 24.0-24.9, adult Medical Established Patient with Karla Amber [facility] 06/17/2020 Overweight Medical Established Patient with Karla Amber [facility] 06/06/2020 Z68.25 - Body mass index [BM I] 25.0-25.9, adult Medical Established Patient with Karla Amber [facility] 06/06/2020 Antiasthmatics CPS [facility]hma Clinic-Ne w with Karlanaveed Clark [facility] 05/06/2020 Assessment of tobacco use CPS Asthma Cli yash-New with Karlanaveed Clark CNP 05/06/2020 Body mass index CPS [facility] Clinic-Ne w with Karla Clark CNP 05/06/2020 Chronic obstructive pulmonary disease CP S [facility]hma Clinic-New with Karlanaveed Clark CNP 05/06/2020 Overweight CPS Asthma Clinic-Ne w with Karla Floresen [facility] 05/06/2020 Z11.4 - Encounter for screen ing for human immunodeficiency virus [HIV] CPS [facility]hma Clinic-New with Karla Floresen [facility] 05/06/2020 Diabetes Risk Test Score was three score 03/31/2020 Medical Established Patient with Karla Amber [facility] 03/31/2020 Overweight Medical Established Patient with Karla Amber [facility] 03/31/2020 Z68.25 - Body mass index [BM I] 25.0-25.9, adult Medical Established Patient with Karla Clark [facility] 03/31/2020 Encounter for Immunization Nurse Visit with Gary segundo Amber [facility] 03/14/2020 Body mass index Medical Established Patient with Karla Amber [facility] 02/26/2020 Overweight Medical Established Patient with Karla Amber [facility] 02/26/2020 Overweight Medical Established Patient with Karla Amber [facility] 07/23/2019 Z68.27 - Body mass index (BM I) 27.0-27.9, adult Medical Established Patient with Karla Amber [facility] 07/23/2019 Occasional asthma CPS- Asthma Clinic- F/U with Karla Amber [facility] 06/05/2019 Overweight CPS- Asthma Clinic- F/U with Karla Amber [facility] 06/05/2019 Z68.27 - Body mass index (BM I) 27.0-27.9 adult CPS- Asthma Clinic- F/U with Karla Amber [facility] 06/05/2019 Occasional asthma CPS Med Review with Karla Amber [facility] 04/23/2019 Overweight CPS Med Review with Karla Amber [facility] 04/23/2019 Z68.27 - Body mass index (BM I) 27.0-27.9 adult CPS Med Review with Karla Amber [facility] 04/23/2019 Acute pharyngitis Medical Established Patient with Brandy Warren [facility] 04/15/2019 Asthmatic bronchitis with ac wales exacerbation Medical Established Patient with Brandy Warren [facility] 04/15/2019 Fagerstrom Score was two Medical Establi shed Patient with Brandy Kelley [facility] 04/15/2019 PHQ-9: total score was three 04/15/2019 Medical Established Patient with Brandy Kelley [facility] 04/15/2019 Body mass index Medical Established Patient with Karla Amber [facility] 03/05/2019 Diabetes Risk Test Score was three score Medical Established Patient with Karlanaveed Clark [facility] 03/05/2019 Overweight Medical Established Patient with Karla Amber [facility] 03/05/2019 Z68.28 - Body mass index (BM I) 28.0-28.9, adult Medical Established Patient with Karlanaveed Clark [facility] 12/22/2018 Assess routine adult history and physical (18 - 64 yrs) Medical Established Patient with Karla Amber [facility] 11/06/2018 Overweight Medical Established Patient with Karla Amber [facility] 11/06/2018 Z68.28 - Body mass index (BM I) 28.0-28.9, adult Medical Established Patient with Karla Amber [facility] 11/06/2018 Assess dysphagia Medical Established Patient with Karla Amber [facility] 09/11/2018 Assess routine adult history and physical (18 - 64 yrs) Medical Established Patient with Karla Amber [facility] 09/11/2018 Assess primary insomnia with sleep apnea Medical Established Patient with Karla Amber [facility] 09/04/2018 Assess routine adult history and physical (18 - 64 yrs) Medical Established Patient with Karla Amber [facility] 09/04/2018 Overweight Medical Established Patient with Karla Amber [facility] 09/04/2018 Z68.29 - Body mass index (BM I) 29.0-29.9, adult Medical Established Patient with Karlanaveed Floresen [facility] 09/04/2018 Assess vaginal candidiasis Medical Estab lished Patient with Karlanaveed Floresen [facility] 07/31/2018 [facility] Work Phone: [phone]) 466-466510-18-2022 Evaluation note Includes: Assessments for all patient encounters Findings Encounter Date Schizoaffective disorder Established Patient with Yin Feliz [facility] 03/20/2022 No cough Medical Established Patient with Karlanaveed Floresen [facility] 12/20/2021 Visit for: screening for hum an immunodeficiency virus Medical Established Patient with Karla Amber [facility] 12/20/2021 Z68.24 - Body mass index [BM I] 24.0-24.9, adult Medical Established Patient with Karla Amber [facility] 12/20/2021 Bipolar disorder NOS Established Pita ent with Yin Feliz [facility] [...] Cough Medical Established Patient with Karla Amber [facility] 07/28/2021 Intervention and counseling on cessation of tobacco use, 3-10 minutes Discussed medication and nicotine replacement for tobacco cessation Medical Established Patient with Karla Amber [facility] 07/28/2021 Nicotine dependence Medical Established Patient with Karla Clark [facility] 07/28/2021 Z68.24 - Body mass index [BM I] 24.0-24.9, adult Medical Established Patient with Karla Clark [facility] 07/28/2021 Assess Colon screening Medical Establish ed Patient with Karla Clark [facility] 05/08/2021 Diabetes Risk Test Score was four score 05/08/2021 Medical Established Patient with Karla Clark [facility] 05/08/2021 Routine adult history and ph ysical (18-64 yrs) without abnormal findings Medical Established Patient with Karla Clark [facility] 05/08/2021 Z68.24 - Body mass index [BM I] 24.0-24.9, adult Medical Established Patient with Karlanaveed Clark [facility] 05/08/2021 Z68.24 - Body mass index [BM I] 24.0-24.9, adult Medical Established Patient with Karlanaveed Clark [facility] 06/17/2020 Overweight Medical Established Patient with Karla Clark [facility] 06/06/2020 Z68.25 - Body mass index [BM I] 25.0-25.9, adult Medical Established Patient with Karlanaveed Clark [facility] 06/06/2020 Antiasthmatics CPS Asthma Clinic-Ne w with [facility] 05/06/2020 Assessment of tobacco use CPS Asthma Cli yash-New with [facility] 05/06/2020 Body mass index CPS Asthma Clinic-Ne w with Karla Amber [facility] 05/06/2020 Chronic obstructive pulmonary disease CP S Asthma Clinic-New with [facility] 05/06/2020 Overweight CPS Asthma Clinic-Ne w with [facility] 05/06/2020 Z11.4 - Encounter for screen ing for human immunodeficiency virus [HIV] CPS Asthma Clinic-New with [facility] 05/06/2020 Diabetes Risk Test Score was three score 03/31/2020 Medical Established Patient with Karla Clark [facility] 03/31/2020 Overweight Medical Established Patient with Karla Clark [facility] 03/31/2020 Z68.25 - Body mass index [BM I] 25.0-25.9, adult Medical Established Patient with Karla Clark [facility] 03/31/2020 Encounter for Immunization Nurse Visit with Gary Clark [facility] 03/14/2020 Body mass index Medical Established Patient with Karla Clark [facility] 02/26/2020 Overweight Medical Established Patient with Karla Clark [facility] 02/26/2020 Overweight Medical Established Patient with Karla Clark [facility] 07/23/2019 Z68.27 - Body mass index (BM I) 27.0-27.9, adult Medical Established Patient with Karla Clark [facility] 07/23/2019 Occasional asthma CPS- Asthma Clinic- F/U with Karla Amber [facility] 06/05/2019 Overweight CPS- Asthma Clinic- F/U with Karla Clark [facility] 06/05/2019 Z68.27 - Body mass index (BM I) 27.0-27.9 adult CPS- Asthma Clinic- F/U with Karla Amber [facility] 06/05/2019 Occasional asthma CPS Med Review with Karla Floresen [facility] 04/23/2019 Overweight CPS Med Review with Karla Clark [facility] 04/23/2019 Z68.27 - Body mass index (BM I) 27.0-27.9 adult CPS Med Review with Karla Clark [facility] 04/23/2019 Acute pharyngitis Medical Established Patient with Brandy Serranoer [facility] 04/15/2019 Asthmatic bronchitis with ac wales exacerbation Medical Established Patient with Brandy Serranoer [facility] 04/15/2019 Fagerstrom Score was two Medical Establi shed Patient with Brandy Serranoer [facility] 04/15/2019 PHQ-9: total score was three 04/15/2019 Medical Established Patient with Brandy Serranoer [facility] 04/15/2019 Body mass index Medical Established Patient with Karla Clark [facility] 03/05/2019 Diabetes Risk Test Score was three score Medical Established Patient with Karla Amber [facility] 03/05/2019 Overweight Medical Established Patient with Karla Floresen [facility] 03/05/2019 Z68.28 - Body mass index (BM I) 28.0-28.9, adult Medical Established Patient with Karla Floresen [facility] 12/22/2018 Assess routine adult history and physical (18 - 64 yrs) Medical Established Patient with Karla Amber [facility] 11/06/2018 Overweight Medical Established Patient with Karla Amber [facility] 11/06/2018 Z68.28 - Body mass index (BM I) 28.0-28.9, adult Medical Established Patient with Karla Amber [facility] 11/06/2018 Assess dysphagia Medical Established Patient with Karla Amber [facility] 09/11/2018 Assess routine adult history and physical (18 - 64 yrs) Medical Established Patient with Karla Amber [facility] 09/11/2018 Assess primary insomnia with sleep apnea Medical Established Patient with Karla Amber [facility] 09/04/2018 Assess routine adult history and physical (18 - 64 yrs) Medical Established Patient with Karla Amber [facility] 09/04/2018 Overweight Medical Established Patient with Karla Amber [facility] 09/04/2018 Z68.29 - Body mass index (BM I) 29.0-29.9, adult Medical Established Patient with Karla Amber [facility] 09/04/2018 Assess vaginal candidiasis Medical Estab lished Patient with Karla Amber [facility] 07/31/2018 [facility] Work Phone: 1([phone]) 402-804610-18-2022 History general Narrative - Reported Includes: Medical History in patient's chart Description Last Updated No previous hospitalizations 03/20/2022 Currently nursing 11/03/2021 [facility] status unknown for sexually tra nsmitted infection 11/03/2021 11/03/2021 Not planning to have a baby in the next 12 months 11/03/2021 Heart Attack 03/2021 [facility] 1 07/09/2020 A recent immunization for flu 05/06/2020 Patient gave verbal consent for teleheal 08/31/2019 History of abnormal electrocardiogram History of asthma 07/31/2018 History of cardiovascular disorder 07/31 History of respiratory disorder 07/31/19 19 History of bipolar disorder NOS 07/31/19 19 History of depression 07/31/2018 History of psychiatric disorders 019 [facility] Work Phone: 1(605) 421-238710-18-2022 History general Narrative - Reported Includes: Medical History in patient's chart Description Last Updated No previous hospitalizations 03/20/2022 Last Documented On 2 2:28PM ; [facility] Currently nursing 11/03/2021 Last Documented On 2 7:00PM ; [facility] status unknown for sexually tra nsmitted infection 11/03/2021 Last Documented On 2 7:00PM ; [facility] 11/03/2021 Last Documented On 2 7:00PM ; [facility] Not planning to have a baby in the next 12 months 11/03/2021 Last Documented On 2 7:00PM ; [facility] Heart Attack 03/2021 [facility] 1 07/09/2020 Last Documented On 1 10:59AM ; [facility] A recent immunization for flu 05/06/2020 Last Documented On 0 7:27PM ; [facility] Patient gave verbal consent for teleheal th 08/31/2019 Last Documented On 0 9:21AM ; [facility] History of abnormal electrocardiogram Last Documented On 9 2:12PM ; [facility] History of asthma 07/31/2018 Last Documented On 9 2:12PM ; [facility] History of cardiovascular disorder 07/31 Last Documented On 9 2:12PM ; [facility] History of respiratory disorder 07/31/19 19 Last Documented On 9 2:12PM ; [facility] History of bipolar disorder NOS 07/31/19 19 Last Documented On 9 2:12PM ; [facility] History of depression 07/31/2018 Last Documented On 9 2:12PM ; [facility] History of psychiatric disorders 019 Last Documented On 9 2:12PM ; [facility] Work Phone: 1([phone]) 281-983010-18-2022 History general Narrative - Reported Includes: Medical History in patient's chart Description Last Updated No previous hospitalizations 03/20/2022 Last Documented On 2 2:28PM ; [facility] Currently nursing 11/03/2021 Last Documented On 2 7:00PM ; [facility] status unknown for sexually tra nsmitted infection 11/03/2021 Last Documented On 2 7:00PM ; [facility] 11/03/2021 Last Documented On 2 7:00PM ; [facility] Not planning to have a baby in the next 12 months 11/03/2021 Last Documented On 2 7:00PM ; [facility] Heart Attack 03/2021 [facility] 1 07/09/2020 Last Documented On 1 10:59AM ; [facility] A recent immunization for flu 05/06/2020 Last Documented On 0 7:27PM ; [facility] Patient gave verbal consent for teleheal th 08/31/2019 Last Documented On 0 9:21AM ; [facility] History of abnormal electrocardiogram Last Documented On 9 2:12PM ; [facility] History of asthma 07/31/2018 Last Documented On 9 2:12PM ; [facility] History of cardiovascular disorder 07/31 Last Documented On 9 2:12PM ; [facility] History of respiratory disorder 07/31/19 19 Last Documented On 9 2:12PM ; [facility] History of bipolar disorder NOS 07/31/19 19 Last Documented On 9 2:12PM ; [facility] History of depression 07/31/2018 Last Documented On 9 2:12PM ; [facility] History of psychiatric disorders 019 Last Documented On 9 2:12PM ; [facility] Work Phone: 1([phone]) 150-265210-18-2022 History general Narrative - Reported Includes: Medical History in patient's chart Description Last Updated No previous hospitalizations 03/20/2022 Last Documented On 2 2:28PM ; [facility] Currently nursing 11/03/2021 Last Documented On 2 7:00PM ; [facility] status unknown for sexually tra nsmitted infection 11/03/2021 Last Documented On 2 7:00PM ; [facility] 11/03/2021 Last Documented On 2 7:00PM ; [facility] Not planning to have a baby in the next 12 months 11/03/2021 Last Documented On 2 7:00PM ; [facility] Heart Attack 03/2021 [facility] 1 07/09/2020 Last Documented On 1 10:59AM ; [facility] A recent immunization for flu 05/06/2020 Last Documented On 0 7:27PM ; [facility] Patient gave verbal consent for teleheal th 08/31/2019 Last Documented On 0 9:21AM ; [facility] History of abnormal electrocardiogram Last Documented On 9 2:12PM ; [facility] History of asthma 07/31/2018 Last Documented On 9 2:12PM ; [facility] History of cardiovascular disorder 07/31 Last Documented On 9 2:12PM ; [facility] History of respiratory disorder 07/31/19 19 Last Documented On 9 2:12PM ; [facility] History of bipolar disorder NOS 07/31/19 19 Last Documented On 9 2:12PM ; [facility] History of depression 07/31/2018 Last Documented On 9 2:12PM ; [facility] History of psychiatric disorders 019 Last Documented On 9 2:12PM ; [facility] [facility] Work Phone: 1(299) 468-310310-18-2022 History general Narrative - Reported Includes: Medical History in patient's chart Description Last Updated No previous hospitalizations 03/20/2022 Last Documented On 2 2:28PM ; [facility] Currently nursing 11/03/2021 Last Documented On 2 7:00PM ; [facility] status unknown for sexually tra nsmitted infection 11/03/2021 Last Documented On 2 7:00PM ; [facility] 11/03/2021 Last Documented On 2 7:00PM ; [facility] Not planning to have a baby in the next 12 months 11/03/2021 Last Documented On 2 7:00PM ; [facility] Heart Attack 03/2021 [facility] 1 07/09/2020 Last Documented On 1 10:59AM ; [facility] A recent immunization for flu 05/06/2020 Last Documented On 0 7:27PM ; [facility] Patient gave verbal consent for teleheal th 08/31/2019 Last Documented On 0 9:21AM ; [facility] History of abnormal electrocardiogram Last Documented On 9 2:12PM ; [facility] History of asthma 07/31/2018 Last Documented On 9 2:12PM ; [facility] History of cardiovascular disorder 07/31 Last Documented On 9 2:12PM ; [facility] History of respiratory disorder 07/31/19 19 Last Documented On 9 2:12PM ; [facility] History of bipolar disorder NOS 07/31/19 19 Last Documented On 9 2:12PM ; [facility] History of depression 07/31/2018 Last Documented On 9 2:12PM ; [facility] History of psychiatric disorders 019 Last Documented On 9 2:12PM ; [place] [facility] Work Phone: 1([phone]) 558-533810-04-2022 History of Present illness Narrative* Soni Sosa - 03/06/2022 1:00 PM EDT Explained policies and procedure of an echocardiogram/Doppler study. [facility] Work Phone: [phone]) 772-937407-20-2022 Evaluation note Includes: Assessments for all patient encounters Findings Encounter Date No cough Medical Established Patient with Karla Clark [employer] 12/20/2021 Visit for: screening for hum an immunodeficiency virus Medical Established Patient with Karla Clark [employer] 12/20/2021 Z68.24 - Body mass index [BM I] 24.0-24.9, adult Medical Established Patient with Karla Clark [employer] 12/20/2021 Bipolar disorder NOS BH Established Pita ent with Yin Feliz [facility] 11/03/2021 Bipolar schizoaffective disorder BH Esta blished Patient with Yin Feliz [facility] 11/03/2021 PLAN Medical Established Patient with Don Pino MD 11/03/2021 Abnormal electrocardiogram Medical Estab lished Patient with Don Pino MD 11/03/2021 Z68.24 - Body mass index [BM I] 24.0-24.9, adult Medical Established Patient with Don Pino MD 11/03/2021 Cough Medical Established Patient with Karla Clark [employer] 07/28/2021 Intervention and counseling on cessation of tobacco use, 3-10 minutes Discussed medication and nicotine replacement for tobacco cessation Medical Established Patient with Karla Clark [employer] 07/28/2021 Nicotine dependence Medical Established Patient with Karla Clark [facility] 07/28/2021 Z68.24 - Body mass index [BM I] 24.0-24.9, adult Medical Established Patient with Karla Clark [employer] 07/28/2021 Assess Colon screening Medical Establish ed Patient with Karla Clark [employer] 05/08/2021 Diabetes Risk Test Score was four score 05/08/2021 Medical Established Patient with Karla Clark [facility] 05/08/2021 Routine adult history and ph ysical (18-64 yrs) without abnormal findings Medical Established Patient with Karla Clark [employer] 05/08/2021 Z68.24 - Body mass index [BM I] 24.0-24.9, adult Medical Established Patient with Karla Clark [employer] 05/08/2021 Z68.24 - Body mass index [BM I] 24.0-24.9, adult Medical Established Patient with Karla Clark [employer] 06/17/2020 Overweight Medical Established Patient with Karla Clark [employer] 06/06/2020 Z68.25 - Body mass index [BM I] 25.0-25.9, adult Medical Established Patient with Karla Amber [employer] 06/06/2020 Antiasthmatics CPS Asthma Clinic-Ne w with Karlanaveed Clark [facility] 05/06/2020 Assessment of tobacco use CPS Asthma Cli yash-New with Karlanaveed Clark [employer] 05/06/2020 Body mass index CPS [facility] Clinic-Ne w with Karlanaveed Clark [facility] 05/06/2020 Chronic obstructive pulmonary disease CP S [facility]hma Clinic-New with Karlanaveed Clark [facility] 05/06/2020 Overweight CPS Asthma Clinic-Ne w with Karlanaveed Clark [facility] 05/06/2020 Z11.4 - Encounter for screen ing for human immunodeficiency virus [HIV] CPS [facility]-New with Karla Amber [facility] 05/06/2020 Diabetes Risk Test Score was three score 03/31/2020 Medical Established Patient with Karlanaveed Clark [facility] 03/31/2020 Overweight Medical Established Patient with Karlanaveed Clark [facility] 03/31/2020 Z68.25 - Body mass index [BM I] 25.0-25.9, adult Medical Established Patient with Karlanaveed Clark [facility] 03/31/2020 Encounter for Immunization Nurse Visit with GaryNicolasa [facility] 03/14/2020 Body mass index Medical Established Patient with Karlanaveed Clark [facility] 02/26/2020 Overweight Medical Established Patient with Karla Amber [facility] 02/26/2020 Overweight Medical Established Patient with Karlanaveed Clark [facility] 07/23/2019 Z68.27 - Body mass index (BM I) 27.0-27.9, adult Medical Established Patient with Karlanaveed Clark [facility] 07/23/2019 Occasional asthma CPS- Asthma Clinic- F/U with Karlanaveed Clark [facility] 06/05/2019 Overweight CPS- Asthma Clinic- F/U with Karlanaveed Clark [facility] 06/05/2019 Z68.27 - Body mass index (BM I) 27.0-27.9 adult CPS- Asthma Clinic- F/U with Karlanaveed Clark [facility] 06/05/2019 Occasional asthma CPS Med Review with Karlanaveed Clark [facility] 04/23/2019 Overweight CPS Med Review with Karlanaveed Clark [facility] 04/23/2019 Z68.27 - Body mass index (BM I) 27.0-27.9 adult CPS Med Review with Karlanaveed Clark [facility] 04/23/2019 Acute pharyngitis Medical Established Patient with Brandy Kelley [employer] 04/15/2019 Asthmatic bronchitis with ac wales exacerbation Medical Established Patient with Brandy Kelley CNP 04/15/2019 Fagerstrom Score was two Medical Establi shed Patient with Brandy Kelley [employer] 04/15/2019 PHQ-9: total score was three 04/15/2019 Medical Established Patient with Brandy Kelley [employer] 04/15/2019 Body mass index Medical Established Patient with Karla Clark CNP 03/05/2019 Diabetes Risk Test Score was three score Medical Established Patient with Karla Clark [employer] 03/05/2019 Overweight Medical Established Patient with Karla Clark CNP 03/05/2019 Z68.28 - Body mass index (BM I) 28.0-28.9, adult Medical Established Patient with Karla Clark [employer] 12/22/2018 Assess routine adult history and physical (18 - 64 yrs) Medical Established Patient with Karla Clark [employer] 11/06/2018 Overweight Medical Established Patient with Karla Clark CNP 11/06/2018 Z68.28 - Body mass index (BM I) 28.0-28.9, adult Medical Established Patient with Karla Clark [employer] 11/06/2018 Assess dysphagia Medical Established Patient with Karla Clark [employer] 09/11/2018 Assess routine adult history and physical (18 - 64 yrs) Medical Established Patient with Karla Clark [employer] 09/11/2018 Assess primary insomnia with sleep apnea Medical Established Patient with Karla Clark [employer] 09/04/2018 Assess routine adult history and physical (18 - 64 yrs) Medical Established Patient with Karlanaveed Clark [employer] 09/04/2018 Overweight Medical Established Patient with Karla Clark [employer] 09/04/2018 Z68.29 - Body mass index (BM I) 29.0-29.9, adult Medical Established Patient with Karla Clark [employer] 09/04/2018 Assess vaginal candidiasis Medical Estab lished Patient with Karla Clark [employer] 07/31/2018 [facility] Work Phone: [phone] Evaluation note Includes: Assessments for all patient encounters Findings Encounter Date Bipolar disorder NOS BH Established Pita ent with Yin ZHONG-S 11/03/2021 Bipolar schizoaffective disorder BH Esta blished [...] cessation Medical Established Patient with Karla Amber [employer] 07/28/2021 Nicotine dependence Medical Established Patient with Karla Amber [facility] 07/28/2021 Z68.24 - Body mass index [BM I] 24.0-24.9, adult Medical Established Patient with Karla Clark [employer] 07/28/2021 Assess Colon screening Medical Establish ed Patient with Karla Amber [employer] 05/08/2021 Diabetes Risk Test Score was four score 05/08/2021 Medical Established Patient with Karla Clark [facility] 05/08/2021 Routine adult history and ph ysical (18-64 yrs) without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 11/06/2018 Overweight Medical Established Patient with Karla Amber [employer]TON DISPATCHER 11/06/2018 Z68.28 - Body mass index (BM I) 28.0-28.9, adult Medical Established Patient with Karla Amber [employer] DISP[employer] 11/06/2018 Assess dysphagia Medical Established Patient with Karla Amber [employer] DISP[employer] 09/11/2018 Assess routine adult history and physical (18 - 64 yrs) Medical Established Patient with Karla Amber [employer] DISPATCHER 09/11/2018 Assess primary insomnia with sleep apnea Medical Established Patient with Karla Amber [employer] DISPATCHER 09/04/2018 Assess routine adult history and physical (18 - 64 yrs) Medical Established Patient with Karla Amber [employer]TON DISPATCHER 09/04/2018 Overweight Medical Established Patient with Karla Amber [employer] DISPATCH[employer] 09/04/2018 Z68.29 - Body mass index (BM I) 29.0-29.9, adult Medical Established Patient with Karla Amber [employer] DISPATCH[employer] 09/04/2018 Assess vaginal candidiasis Medical Estab lished Patient with Karla Amber [employer]TON DISPATCHER 07/31/2018 [facility] Work Phone: Evaluation note* Diagnosis Pre-procedure lab exam Pre-procedural laboratory examination documented in this encounter [facility] Work Phone: evaluation note Includes: Assessments for all patient encounters Findings Encounter Date Assess dysphagia Established Patient with Karla Amber [employer]TON DISPATCHER 09/11/2018 Assess routine adult history and physical (18 - 64 yrs) Established Patient with Karla Amber [employer]OTTON DISPATCHER 09/11/2018 Assess primary insomnia with sleep apnea Established Patient with Karla Amber [employer]OTTON DISPATCHER 09/04/2018 Assess routine adult history and physical (18 - 64 yrs) Established Patient with Karla Amber [employer] DISPATCHER 09/04/2018 Overweight Established Patient with Karla Amber [employer] DISPATCHER 09/04/2018 Z68.29 - Body mass index (BM I) 29.0-29.9, adult Established Patient with Karla Amber [employer]TON DISPATCHER 09/04/2018 Assess vaginal candidiasis Established P atient with Karla Amber [employer]OTTON DISPATCHER 07/31/2018 [facility] Work Phone: Evaluation note Includes: Assessments for all patient encounters Findings Encounter Date PLAN Medical Established Patient with Don Pino MD 11/03/2021 Abnormal electrocardiogram Medical Estab lished Patient with Don Pino MD 11/03/2021 Z68.24 - Body mass index [BM I] 24.0-24.9, adult Medical Established Patient with Don Pino MD 11/03/2021 Cough Medical Established Patient with Karla Clark [facility] 07/28/2021 Intervention and counseling on cessation of tobacco use, 3-10 minutes Discussed medication and nicotine replacement for tobacco cessation Medical Established Patient with Karla Clark [facility] 07/28/2021 Nicotine dependence Medical Established Patient with Karla Clark [facility] 07/28/2021 Z68.24 - Body mass index [BM I] 24.0-24.9, adult Medical Established Patient with Karla Clark [facility] 07/28/2021 Assess Colon screening Medical Establish ed Patient with Karla Clark [facility] 05/08/2021 Diabetes Risk Test Score was four score 05/08/2021 Medical Established Patient with Karla Clark [facility] 05/08/2021 Routine adult history and ph ysical (18-64 yrs) without abnormal findings Medical Established Patient with Karla Clark [facility] 05/08/2021 Z68.24 - Body mass index [BM I] 24.0-24.9, adult Medical Established Patient with Karla Clark [facility] 05/08/2021 Z68.24 - Body mass index [BM I] 24.0-24.9, adult Medical Established Patient with Karla Clark [facility] 06/17/2020 Overweight Medical Established Patient with Karla Clark [facility] 06/06/2020 Z68.25 - Body mass index [BM I] 25.0-25.9, adult Medical Established Patient with Karla Clark [facility] 06/06/2020 Antiasthmatics [facility] 05/06/2020 Assessment of tobacco use CPS Asthma Cli yash-New with [facility] 05/06/2020 Body mass index CPS Asthma Clinic-Ne w with [facility] 05/06/2020 Chronic obstructive pulmonary disease CP S Asthma Clinic-New with [facility] 05/06/2020 Overweight CPS Asthma Clinic-Ne w with [facility] 05/06/2020 Z11.4 - Encounter for screen ing for human immunodeficiency virus [HIV] CPS Asthma Clinic-New with [facility] 05/06/2020 Diabetes Risk Test Score was three score 03/31/2020 Medical Established Patient with [facility] 03/31/2020 Overweight Medical Established Patient with [facility] 03/31/2020 Z68.25 - Body mass index [BM I] 25.0-25.9, adult Medical Established Patient with Karla Clark [facility] 03/31/2020 Encounter for Immunization Nurse Visit with Gary segundo Amber [facility] 03/14/2020 Body mass index Medical Established Patient with Karla Floresen [facility] 02/26/2020 Overweight Medical Established Patient with Karla Floresen [facility] 02/26/2020 Overweight Medical Established Patient with Karla Amber [facility] 07/23/2019 Z68.27 - Body mass index (BM I) 27.0-27.9, adult Medical Established Patient with Karla Clark [facility] 07/23/2019 Occasional asthma CPS- Asthma Clinic- F/U with Karla Amber [facility] 06/05/2019 Overweight CPS- Asthma Clinic- F/U with Karla Amber [facility] 06/05/2019 Z68.27 - Body mass index (BM I) 27.0-27.9 adult CPS- Asthma Clinic- F/U with Karla Amber [facility] 06/05/2019 Occasional asthma CPS Med Review with Karla Amber [facility] 04/23/2019 Overweight CPS Med Review with Karla Amber [facility] 04/23/2019 Z68.27 - Body mass index (BM I) 27.0-27.9 adult CPS Med Review with Karla Clark [facility] 04/23/2019 Acute pharyngitis Medical Established Patient with Brandy Serranoer [facility] 04/15/2019 Asthmatic bronchitis with ac wales exacerbation Medical Established Patient with Brandy Kelley [facility] 04/15/2019 Fagerstrom Score was two Medical Establi shed Patient with Brandy Serranoer [facility] 04/15/2019 PHQ-9: total score was three 04/15/2019 Medical Established Patient with Brandy Serranoer [facility] 04/15/2019 Body mass index Medical Established Patient with Karla Clark [facility] 03/05/2019 Diabetes Risk Test Score was three score Medical Established Patient with Karla Amber [facility] 03/05/2019 Overweight Medical Established Patient with Karla Amber [facility] 03/05/2019 Z68.28 - Body mass index (BM I) 28.0-28.9, adult Medical Established Patient with Karla Clark [facility] 12/22/2018 Assess routine adult history and physical (18 - 64 yrs) Medical Established Patient with Karla Amber [facility] 11/06/2018 Overweight Medical Established Patient with Karla Amber [facility] 11/06/2018 Z68.28 - Body mass index (BM I) 28.0-28.9, adult Medical Established Patient with Karla Amber [employer] 11/06/2018 Assess dysphagia Medical Established Patient with Kalra Amber [employer] DISP[employer] 09/11/2018 Assess routine adult history and physical (18 - 64 yrs) Medical Established Patient with Karla Amber [employer] DISPATCHER 09/11/2018 Assess primary insomnia with sleep apnea Medical Established Patient with Karla Amber [employer] DISP[employer] 09/04/2018 Assess routine adult history and physical (18 - 64 yrs) Medical Established Patient with Karla Amber [employer] DISPATCHER 09/04/2018 Overweight Medical Established Patient with Karla Amber [employer] DISPATCHER 09/04/2018 Z68.29 - Body mass index (BM I) 29.0-29.9, adult Medical Established Patient with Karla Amber [employer] 09/04/2018 Assess vaginal candidiasis Medical Estab lished Patient with Karla Amber [employer]TON DISPATCHER 07/31/2018 [facility] Work Phone: Evaluation note* Diagnosis Pre-operative clearance Preoperative examination, unspecified Abnormal EKG Nonspecific abnormal electrocardiogram (ECG) (EKG) History of AR (myocardial infarction) Old myocardial infarction documented in this encounter [facility] Work Phone: evaluation note Includes: Assessments for all patient encounters Findings Encounter Date [H92.02 - Otalgia, left ear] earache Med ical Established Patient with Karlanaveed Clark [employer] DISPATCHER 06/18/2022 Last Documented On 3 12:11PM ; [facility] [M79.604 - Pain in right leg ] pain in right leg Medical Established Patient with Karla Amber [employer]OTTON DISPATCHER 06/18/2022 Last Documented On 3 12:11PM ; [facility] [Z68.24 - Body mass index [B AR] 24.0-24.9, adult] assessment of body mass index Medical Established Patient with Karla Amber [employer]OTTON DISPATCHER 06/18/2022 Last Documented On 3 12:11PM ; [facility] Assessment of tobacco use Medical Establ ished Patient with Karla Amber [employer]TON DISPATCHER 06/18/2022 Last Documented On 3 12:11PM ; [facility] Diabetes Risk Test Score was four score 06/18/2022 Medical Established Patient with Karla Amber COTTON DISPATCHER 06/18/2022 Last Documented On 3 12:11PM ; [facility] Schizoaffective disorder Established Patient with Yin Feliz LPCC-S 03/20/2022 Last Documented On 2 12:13AM ; [facility] No cough Medical Established Patient with Karlanaveed Floresen [employer] DISPATCHER 12/20/2021 Last Documented On 2 3:12PM ; [facility] Visit for: screening for hum an immunodeficiency virus Medical Established Patient with Karla Amber [employer]OTTON DISPATCHER 12/20/2021 Last Documented On 2 3:12PM ; [facility] Z68.24 - Body mass index [BM I] 24.0-24.9, adult Medical Established Patient with Karla Clark [employer] DISPATCHER 12/20/2021 Last Documented On 2 3:12PM ; [facility] Bipolar disorder NOS BH Established Patient with Yin Feliz LPCC-S 11/03/2021 Last Documented On 2 7:00PM ; [facility] Bipolar schizoaffective disorder BH Esta blished Patient with Yin Feliz LPCC-S 11/03/2021 Last Documented On 2 7:00PM ; [facility] PLAN Medical Established Patient with Don Pino MD 11/03/2021 Last Documented On 2 10:40AM ; [facility] Abnormal electrocardiogram Medical Estab lished Patient with Don Pino MD 11/03/2021 Last Documented On 2 10:40AM ; [facility] Z68.24 - Body mass index [BM I] 24.0-24.9, adult Medical Established Patient with Don Pino MD 11/03/2021 Last Documented On 2 10:40AM ; [facility] Cough Medical Established Patient with Karla Clark COTTON DISPATCHER 07/28/2021 Last Documented On 2 2:01PM ; [facility] Intervention and counseling on cessation of tobacco use, 3-10 minutes Discussed medication and nicotine replacement for tobacco cessation Medical Established Patient with Karla Clark COTTON DISPATCHER 07/28/2021 Last Documented On 2 2:01PM ; [facility] Nicotine dependence Medical Established Patient with Karla Amber COTTON DISPATCHER 07/28/2021 Last Documented On 2 2:01PM ; [facility] Z68.24 - Body mass index [BM I] 24.0-24.9, adult Medical Established Patient with Karla Amber COTTON DISPATCHER 07/28/2021 Last Documented On 2 2:01PM ; [facility] Assess Colon screening Medical Established Patie nt with Karla Amber COTTON DISPATCHER 05/08/2021 Last Documented On 1 10:59AM ; [facility] Diabetes Risk Test Score was four score 05/08/2021 Medical Established Patient with Karla Amber COTTON DISPATCHER 05/08/2021 Last Documented On 1 10:59AM ; [facility] Routine adult history and ph ysical (18-64 yrs) without abnormal findings Medical Established Patient with Karla Amber COTTON DISPATCHER 05/08/2021 Last Documented On 1 10:59AM ; [facility] Z68.24 - Body mass index [BM I] 24.0-24.9, adult Medical Established Patient with Karla Amber COTTON DISPATCHER 05/08/2021 Last Documented On 1 10:59AM ; [facility] Z68.24 - Body mass index [BM I] 24.0-24.9, adult Medical Established Patient with Karla Amber COTTON DISPATCHER 06/17/2020 Last Documented On 1 10:30AM ; [facility] Overweight Medical Established Patient with Karla Amber COTTON DISPATCHER 06/06/2020 Last Documented On 1 2:06PM ; [facility] Z68.25 - Body mass index [BM I] 25.0-25.9, adult Medical Established Patient with Karla Amber COTTON DISPATCHER 06/06/2020 Last Documented On 1 2:06PM ; [facility] Antiasthmatics [facility] Asthma Clinic-New with Karla Amber COTTON DISPATCHER 05/06/2020 Last Documented On 0 7:27PM ; [facility] Assessment of tobacco use [facility] Asthma Clinic-New with Karla Amber COTTON DISPATCHER 05/06/2020 Last Documented On 0 7:27PM ; [facility] Body mass index CPS Ast[facility] Clinic-New with Karlanaveed Floresen COTTON DISPATCHER 05/06/2020 Last Documented On 0 7:27PM ; [facility] Chronic obstructive pulmonary disease CP S [facility] Clinic-New with Karla Amber COTTON DISPATCHER 05/06/2020 Last Documented On 0 7:27PM ; [facility] Overweight CPS [facility] Clinic-New with Karla Amber COTTON DISPATCHER 05/06/2020 Last Documented On 0 7:27PM ; [facility] Z11.4 - Encounter for screen ing for human immunodeficiency virus [HIV] CPS [facility] Clinic-New with Karlanaveed Floresen COTTON DISPATCHER 05/06/2020 Last Documented On 0 7:27PM ; [facility] Diabetes Risk Test Score was three score 03/31/2020 Medical Established Patient with Karla Amber COTTON DISPATCHER 03/31/2020 Last Documented On 0 3:22PM ; [facility] Overweight Medical Established Patient with Karla Amber COTTON DISPATCHER 03/31/2020 Last Documented On 0 3:22PM ; [facility] Z68.25 - Body mass index [BM I] 25.0-25.9, adult Medical Established Patient with Karla Amber COTTON DISPATCHER 03/31/2020 Last Documented On 0 3:22PM ; [facility] Encounter for Immunization Nurse Visit with Gary Clark COTTON DISPATCHER 03/14/2020 Last Documented On 0 5:11PM ; [facility] Body mass index Medical Established Patient with Karla Amber COTTON DISPATCHER 02/26/2020 Last Documented On 0 1:18PM ; [facility] Overweight Medical Established Patient with Karla Amber COTTON DISPATCHER 02/26/2020 Last Documented On 0 1:18PM ; [facility] Overweight Medical Established Patient with Karla Amber COTTON DISPATCHER 07/23/2019 Last Documented On 0 2:33PM ; [facility] Z68.27 - Body mass index (BM I) 27.0-27.9, adult Medical Established Patient with Karla Amber COTTON DISPATCHER 07/23/2019 Last Documented On 0 2:33PM ; [facility] Occasional asthma CPS- Asthma Clinic- F/U with A french Clark COTTON DISPATCHER 06/05/2019 Last Documented On 0 7:04PM ; [facility] Overweight CPS- Asthma Clinic- F/U with Alta Clark COTTON DISPATCHER 06/05/2019 Last Documented On 0 7:04PM ; [facility] Z68.27 - Body mass index (BM I) 27.0-27.9 adult CPS- Asthma Clinic- F/U with Karla Clark COTTON DISPATCHER 06/05/2019 Last Documented On 0 7:04PM ; [facility] Occasional asthma CPS Med Review with Karla Sandra dinh COTTON DISPATCHER 04/23/2019 Last Documented On 9 4:01PM ; [facility] Overweight CPS Med Review with Karla Amber COTTON DISPATCHER 04/23/2019 Last Documented On 9 4:01PM ; [facility] Z68.27 - Body mass index (BM I) 27.0-27.9 adult CPS Med Review with Karla Clark COTTON DISPATCHER 04/23/2019 Last Documented On 9 4:01PM ; [facility] Acute pharyngitis Medical Established Patient wi th Brandy Kelley [facility] 04/15/2019 Last Documented On 9 12:31PM ; [facility] Asthmatic bronchitis with ac wales exacerbation Medical Established Patient with Brandy Kleley COTTON DISPATCHER 04/15/2019 Last Documented On 9 12:31PM ; [facility] Fagerstrom Score was two Medical Established Pat ient with Brandy Warren [facility] 04/15/2019 Last Documented On 9 12:31PM ; [facility] PHQ-9: total score was three 04/15/2019 Medical Established Patient with Brandy Warren COTTON DISPATCHER 04/15/2019 Last Documented On 9 12:31PM ; [facility] Body mass index Medical Established Patient with Karla Amber COTTON DISPATCHER 03/05/2019 Last Documented On 9 10:27AM ; [facility] Diabetes Risk Test Score was three score Medical Established Patient with Karla Amber COTTON DISPATCHER 03/05/2019 Last Documented On 9 10:27AM ; [facility] Overweight Medical Established Patient with Karla Amber COTTON DISPATCHER 03/05/2019 Last Documented On 9 10:27AM ; [facility] Z68.28 - Body mass index (BM I) 28.0-28.9, adult Medical Established Patient with Karla Amber COTTON DISPATCHER 12/22/2018 Last Documented On 9 10:32AM ; [facility] Assess routine adult history and physical (18 - 64 yrs) Medical Established Patient with Karla Amber COTTON DISPATCHER 11/06/2018 Last Documented On 9 2:26PM ; [facility] Overweight Medical Established Patient with Karla Amber COTTON DISPATCHER 11/06/2018 Last Documented On 9 2:26PM ; [facility] Z68.28 - Body mass index (BM I) 28.0-28.9, adult Medical Established Patient with Karla Amber COTTON DISPATCHER 11/06/2018 Last Documented On 9 2:26PM ; [facility] Assess dysphagia Medical Established Patient wit h Karla Amber COTTON DISPATCHER 09/11/2018 Last Documented On 9 10:53AM ; [facility] Assess routine adult history and physical (18 - 64 yrs) Medical Established Patient with Karla Amber COTTON DISPATCHER 09/11/2018 Last Documented On 9 10:53AM ; [facility] Assess primary insomnia with sleep apnea Medical Established Patient with Karla Amber COTTON DISPATCHER 09/04/2018 Last Documented On 9 2:23PM ; [facility] Assess routine adult history and physical (18 - 64 yrs) Medical Established Patient with Karla Amber COTTON DISPATCHER 09/04/2018 Last Documented On 9 2:23PM ; [facility] Overweight Medical Established Patient with Karla Amber COTTON DISPATCHER 09/04/2018 Last Documented On 9 2:23PM ; [facility] Z68.29 - Body mass index (BM I) 29.0-29.9, adult Medical Established Patient with Karla Amber COTTON DISPATCHER 09/04/2018 Last Documented On 9 2:23PM ; [facility] Assess vaginal candidiasis Medical Estab lished Patient with Karla Amber COTTON DISPATCHER 07/31/2018 Last Documented On 9 2:12PM ; [facility] Work Phone: Evaluation note* Diagnosis Cutaneous candidiasis Candidiasis of skin and nails Screening for malignant neoplasm of cervix Screening for malignant neoplasm of the cervix documented in this encounter [facility] Work Phone: evaluation note Includes: Assessments for all patient encounters Findings Encounter Date [M25.569 - Pain in unspecifi ed knee] arthralgia of knee / patella / tibia / fibula Medical Established Patient with Karla Clark COTTON DISPATCHER 08/27/2022 Last Documented On 3 8:56AM ; [facility] [Z68.24 - Body mass index [B AR] 24.0-24.9, adult] assessment of body mass index Medical Established Patient with Karla Clark COTTON DISPATCHER 08/27/2022 Last Documented On 3 8:56AM ; [facility] Intervention and counseling on cessation of tobacco use, 3-10 minutes Discussed medication and nicotine replacement for tobacco cessation Medical Established Patient with Karla Clark COTTON DISPATCHER 08/27/2022 Last Documented On 3 8:56AM ; [facility] Nicotine dependence Medical Established Patient with Karla Clark COTTON DISPATCHER 08/27/2022 Last Documented On 3 8:56AM ; [facility] Visit for routine adult H&P without abnormal findings Medical Established Patient with Karla Clark COTTON DISPATCHER 08/27/2022 Last Documented On 3 8:56AM ; [facility] [H92.02 - Otalgia, left ear] earache Med ical Established Patient with Karla Clark COTTON DISPATCHER 06/18/2022 Last Documented On 3 12:11PM ; [facility] [M79.604 - Pain in right leg ] pain in right leg Medical Established Patient with Karla Clark COTTON DISPATCHER 06/18/2022 Last Documented On 3 12:11PM ; [facility] [Z68.24 - Body mass index [B AR] 24.0-24.9, adult] assessment of body mass index Medical Established Patient with Karla Clark COTTON DISPATCHER 06/18/2022 Last Documented On 3 12:11PM ; [facility] Assessment of tobacco use Medical Establ ished Patient with Karla Amber COTTON DISPATCHER 06/18/2022 Last Documented On 3 12:11PM ; [facility] Diabetes Risk Test Score was four score 06/18/2022 Medical Established Patient with Karlanaveed Floresen COTTON DISPATCHER 06/18/2022 Last Documented On 3 12:11PM ; [facility] Schizoaffective disorder Established Patient with Yin Feliz LPCC-S 03/20/2022 Last Documented On 2 12:13AM ; [facility] No cough Medical Established Patient with Karlanaveed Floresen COTTON DISPATCHER 12/20/2021 Last Documented On 2 3:12PM ; [facility] Visit for: screening for hum an immunodeficiency virus Medical Established Patient with Karla Clark COTTON DISPATCHER 12/20/2021 Last Documented On 2 3:12PM ; [facility] Z68.24 - Body mass index [BM I] 24.0-24.9, adult Medical Established Patient with Karlanaveed Floresen COTTON DISPATCHER 12/20/2021 Last Documented On 2 3:12PM ; [facility] Bipolar disorder NOS BH Established Patient with Yin Feliz LPCC-S 11/03/2021 Last Documented On 2 7:00PM ; [facility] Bipolar schizoaffective disorder BH Esta blished Patient with Yin Feliz LPCC-S 11/03/2021 Last Documented On 2 7:00PM ; [facility] PLAN Medical Established Patient with Don Pino MD 11/03/2021 Last Documented On 2 10:40AM ; [facility] Abnormal electrocardiogram Medical Estab lished Patient with Don Pino MD 11/03/2021 Last Documented On 2 10:40AM ; [facility] Z68.24 - Body mass index [BM I] 24.0-24.9, adult Medical Established Patient with Don Pino MD 11/03/2021 Last Documented On 2 10:40AM ; [facility] Cough Medical Established Patient with Karla Amber COTTON DISPATCHER 07/28/2021 Last Documented On 2 2:01PM ; [facility] Intervention and counseling on cessation of tobacco use, 3-10 minutes Discussed medication and nicotine replacement for tobacco cessation Medical Established Patient with Karla Amber COTTON DISPATCHER 07/28/2021 Last Documented On 2 2:01PM ; [facility] Nicotine dependence Medical Established Patient with Karla Amber COTTON DISPATCHER 07/28/2021 Last Documented On 2 2:01PM ; [facility] Z68.24 - Body mass index [BM I] 24.0-24.9, adult Medical Established Patient with Karla Amber COTTON DISPATCHER 07/28/2021 Last Documented On 2 2:01PM ; [facility] Assess Colon screening Medical Established Patie nt with Karla Amber COTTON DISPATCHER 05/08/2021 Last Documented On 1 10:59AM ; [facility] Diabetes Risk Test Score was four score 05/08/2021 Medical Established Patient with Karla Amber COTTON DISPATCHER 05/08/2021 Last Documented On 1 10:59AM ; [facility] Routine adult history and ph ysical (18-64 yrs) without abnormal findings Medical Established Patient with Karla Amber COTTON DISPATCHER 05/08/2021 Last Documented On 1 10:59AM ; [facility] Z68.24 - Body mass index [BM I] 24.0-24.9, adult Medical Established Patient with Karla Amber COTTON DISPATCHER 05/08/2021 Last Documented On 1 10:59AM ; [facility] Z68.24 - Body mass index [BM I] 24.0-24.9, adult Medical Established Patient with Karla Amber COTTON DISPATCHER 06/17/2020 Last Documented On 1 10:30AM ; [facility] Overweight Medical Established Patient with Karla Amber COTTON DISPATCHER 06/06/2020 Last Documented On 1 2:06PM ; [facility] Z68.25 - Body mass index [BM I] 25.0-25.9, adult Medical Established Patient with Karla Amber COTTON DISPATCHER 06/06/2020 Last Documented On 1 2:06PM ; [facility] Antiasthmatics [facility] Asthma Clinic-New with Karlanaveed Floresen COTTON DISPATCHER 05/06/2020 Last Documented On 0 7:27PM ; [facility] Assessment of tobacco use CPS Ast[facility] Clinic-New with Karla Amber COTTON DISPATCHER 05/06/2020 Last Documented On 0 7:27PM ; [facility] Body mass index [facility] Asthma Clinic-New with Karla Amber COTTON DISPATCHER 05/06/2020 Last Documented On 0 7:27PM ; [facility] Chronic obstructive pulmonary disease S Ast[facility] Clinic-New with Karla Amber COTTON DISPATCHER 05/06/2020 Last Documented On 0 7:27PM ; [facility] Overweight [facility] Asthma Clinic-New with Karlanaveed Floresen COTTON DISPATCHER 05/06/2020 Last Documented On 0 7:27PM ; [facility] Z11.4 - Encounter for screen ing for human immunodeficiency virus [HIV] CPS Ast[facility] Clinic-New with Karla Clark COTTON DISPATCHER 05/06/2020 Last Documented On 0 7:27PM ; [facility] Diabetes Risk Test Score was three score 03/31/2020 Medical Established Patient with Karla Floresen COTTON DISPATCHER 03/31/2020 Last Documented On 0 3:22PM ; [facility] Overweight Medical Established Patient with Karlanaveed Floresen COTTON DISPATCHER 03/31/2020 Last Documented On 0 3:22PM ; [facility] Z68.25 - Body mass index [BM I] 25.0-25.9, adult Medical Established Patient with Karla Clark COTTON DISPATCHER 03/31/2020 Last Documented On 0 3:22PM ; [facility] Encounter for Immunization Nurse Visit with Gary Clark COTTON DISPATCHER 03/14/2020 Last Documented On 0 5:11PM ; [facility] Body mass index Medical Established Patient with Karlanaveed Floresen COTTON DISPATCHER 02/26/2020 Last Documented On 0 1:18PM ; [facility] Overweight Medical Established Patient with Karla Amber COTTON DISPATCHER 02/26/2020 Last Documented On 0 1:18PM ; [facility] Overweight Medical Established Patient with Karlanaveed Floresen COTTON DISPATCHER 07/23/2019 Last Documented On 0 2:33PM ; [facility] Z68.27 - Body mass index (BM I) 27.0-27.9, adult Medical Established Patient with Karlanaveed Floresen COTTON DISPATCHER 07/23/2019 Last Documented On 0 2:33PM ; [facility] Occasional asthma CPS- Asthma Clinic- F/U with A imnaveed Floresen COTTON DISPATCHER 06/05/2019 Last Documented On 0 7:04PM ; [facility] Overweight CPS- Asthma Clinic- F/U with Aim naveed Floresen COTTON DISPATCHER 06/05/2019 Last Documented On 0 7:04PM ; [facility] Z68.27 - Body mass index (BM I) 27.0-27.9 adult CPS- Asthma Clinic- F/U with Karla Floresen COTTON DISPATCHER 06/05/2019 Last Documented On 0 7:04PM ; [facility] Occasional asthma CPS Med Review with Karlanaveed Flores allegra COTTON DISPATCHER 04/23/2019 Last Documented On 9 4:01PM ; [facility] Overweight CPS Med Review with Karlanaveed Floresen COTTON DISPATCHER 04/23/2019 Last Documented On 9 4:01PM ; [facility] Z68.27 - Body mass index (BM I) 27.0-27.9 adult CPS Med Review with Karla Floresen COTTON DISPATCHER 04/23/2019 Last Documented On 9 4:01PM ; [facility] Acute pharyngitis Medical Established Patient wi th Brandy Kelley COTTON DISPATCHER 04/15/2019 Last Documented On 9 12:31PM ; [facility] Asthmatic bronchitis with ac wales exacerbation Medical Established Patient with Brandy Warren COTTON DISPATCHER 04/15/2019 Last Documented On 9 12:31PM ; [facility] Fagerstrom Score was two Medical Established Pat ient with Brandy Warren COTTON DISPATCHER 04/15/2019 Last Documented On 9 12:31PM ; [facility] PHQ-9: total score was three 04/15/2019 Medical Established Patient with Brandy Warren COTTON DISPATCHER 04/15/2019 Last Documented On 9 12:31PM ; [facility] Body mass index Medical Established Patient with Karla Amber COTTON DISPATCHER 03/05/2019 Last Documented On 9 10:27AM ; [facility] Diabetes Risk Test Score was three score Medical Established Patient with Karla Amber COTTON DISPATCHER 03/05/2019 Last Documented On 9 10:27AM ; [facility] Overweight Medical Established Patient with Karla Amber COTTON DISPATCHER 03/05/2019 Last Documented On 9 10:27AM ; [facility] Z68.28 - Body mass index (BM I) 28.0-28.9, adult Medical Established Patient with Karla Amber COTTON DISPATCHER 12/22/2018 Last Documented On 9 10:32AM ; [facility] Assess routine adult history and physical (18 - 64 yrs) Medical Established Patient with Karla Amber COTTON DISPATCHER 11/06/2018 Last Documented On 9 2:26PM ; [facility] Overweight Medical Established Patient with Karla Amber COTTON DISPATCHER 11/06/2018 Last Documented On 9 2:26PM ; [facility] Z68.28 - Body mass index (BM I) 28.0-28.9, adult Medical Established Patient with Karla Amber COTTON DISPATCHER 11/06/2018 Last Documented On 9 2:26PM ; [facility] Assess dysphagia Medical Established Patient wit h Karla Amber COTTON DISPATCHER 09/11/2018 Last Documented On 9 10:53AM ; [facility] Assess routine adult history and physical (18 - 64 yrs) Medical Established Patient with Karla Amber COTTON DISPATCHER 09/11/2018 Last Documented On 9 10:53AM ; [facility] Assess primary insomnia with sleep apnea Medical Established Patient with Karla Amber COTTON DISPATCHER 09/04/2018 Last Documented On 9 2:23PM ; [facility] Assess routine adult history and physical (18 - 64 yrs) Medical Established Patient with Karla Amber COTTON DISPATCHER 09/04/2018 Last Documented On 9 2:23PM ; [facility] Overweight Medical Established Patient with Karla Amber COTTON DISPATCHER 09/04/2018 Last Documented On 9 2:23PM ; [facility] Z68.29 - Body mass index (BM I) 29.0-29.9, adult Medical Established Patient with Karla Clark CNP 09/04/2018 Last Documented On 9 2:23PM ; [facility] Assess vaginal candidiasis Medical Estab lished Patient with Karla Clark CNP 07/31/2018 Last Documented On 9 2:12PM ; [facility] Work Phone: Evaluation note Includes: Assessments for all patient encounters Findings Encounter Date [M25.569 - Pain in unspecifi ed knee] arthralgia of knee / patella / tibia / fibula Medical Established Patient with Karla Clark CNP 08/27/2022 Last Documented On 3 8:56AM ; [facility] [Z68.24 - Body mass index [B AR] 24.0-24.9, adult] assessment of body mass index Medical Established Patient with Karla Clark CNP 08/27/2022 Last Documented On 3 8:56AM ; [facility] Intervention and counseling on cessation of tobacco use, 3-10 minutes Discussed medication and nicotine replacement for tobacco cessation Medical Established Patient with Karla Clark CNP 08/27/2022 Last Documented On 3 8:56AM ; [facility] Nicotine dependence Medical Established Patient with Karla Clark CNP 08/27/2022 Last Documented On 3 8:56AM ; [facility] Visit for routine adult H&P without abnormal findings Medical Established Patient with Karla Clark CNP 08/27/2022 Last Documented On 3 8:56AM ; [facility] [H92.02 - Otalgia, left ear] earache Med ical Established Patient with Karla Clark COTTON DISPATCHER 06/18/2022 Last Documented On 3 12:11PM ; [facility] [M79.604 - Pain in right leg ] pain in right leg Medical Established Patient with Karla Clark CNP 06/18/2022 Last Documented On 3 12:11PM ; [facility] [Z68.24 - Body mass index [B AR] 24.0-24.9, adult] assessment of body mass index Medical Established Patient with Karla Clark COTTON DISPATCHER 06/18/2022 Last Documented On 3 12:11PM ; [facility] Assessment of tobacco use Medical Establ ished Patient with Karla Clark COTTON DISPATCHER 06/18/2022 Last Documented On 3 12:11PM ; [facility] Diabetes Risk Test Score was four score 06/18/2022 Medical Established Patient with Karla Clark COTTON DISPATCHER 06/18/2022 Last Documented On 3 12:11PM ; [facility] Schizoaffective disorder Established Patient with Yin Feliz LPCC-S 03/20/2022 Last Documented On 2 12:13AM ; [facility] No cough Medical Established Patient with Karla Clark COTTON DISPATCHER 12/20/2021 Last Documented On 2 3:12PM ; [facility] Visit for: screening for hum an immunodeficiency virus Medical Established Patient with Karla Clark COTTON DISPATCHER 12/20/2021 Last Documented On 2 3:12PM ; [facility] Z68.24 - Body mass index [BM I] 24.0-24.9, adult Medical Established Patient with Karla Clark COTTON DISPATCHER 12/20/2021 Last Documented On 2 3:12PM ; [facility] Bipolar disorder NOS BH Established Patient with Yin Feliz LPCC-S 11/03/2021 Last Documented On 2 7:00PM ; [facility] Bipolar schizoaffective disorder BH Esta blished Patient with Yin Feliz LPCC-S 11/03/2021 Last Documented On 2 7:00PM ; [facility] PLAN Medical Established Patient with Don Pino MD 11/03/2021 Last Documented On 2 10:40AM ; [facility] Abnormal electrocardiogram Medical Estab lished Patient with Don Pino MD 11/03/2021 Last Documented On 2 10:40AM ; [facility] Z68.24 - Body mass index [BM I] 24.0-24.9, adult Medical Established Patient with Don Pino MD 11/03/2021 Last Documented On 2 10:40AM ; [facility] Cough Medical Established Patient with Karlanaveed Floresen COTTON DISPATCHER 07/28/2021 Last Documented On 2 2:01PM ; [facility] Intervention and counseling on cessation of tobacco use, 3-10 minutes Discussed medication and nicotine replacement for tobacco cessation Medical Established Patient with Karla Amber COTTON DISPATCHER 07/28/2021 Last Documented On 2 2:01PM ; [facility] Nicotine dependence Medical Established Patient with Karla Amber COTTON DISPATCHER 07/28/2021 Last Documented On 2 2:01PM ; [facility] Z68.24 - Body mass index [BM I] 24.0-24.9, adult Medical Established Patient with Karla Amber COTTON DISPATCHER 07/28/2021 Last Documented On 2 2:01PM ; [facility] Assess Colon screening Medical Established Patie nt with Karla Amber COTTON DISPATCHER 05/08/2021 Last Documented On 1 10:59AM ; [facility] Diabetes Risk Test Score was four score 05/08/2021 Medical Established Patient with Karla Amber COTTON DISPATCHER 05/08/2021 Last Documented On 1 10:59AM ; [facility] Routine adult history and ph ysical (18-64 yrs) without abnormal findings Medical Established Patient with Karla Amber COTTON DISPATCHER 05/08/2021 Last Documented On 1 10:59AM ; [facility] Z68.24 - Body mass index [BM I] 24.0-24.9, adult Medical Established Patient with Karla Amber COTTON DISPATCHER 05/08/2021 Last Documented On 1 10:59AM ; [facility] Z68.24 - Body mass index [BM I] 24.0-24.9, adult Medical Established Patient with Karla Amber COTTON DISPATCHER 06/17/2020 Last Documented On 1 10:30AM ; [facility] Overweight Medical Established Patient with Karla Amber COTTON DISPATCHER 06/06/2020 Last Documented On 1 2:06PM ; [facility] Z68.25 - Body mass index [BM I] 25.0-25.9, adult Medical Established Patient with Karla Clark COTTON DISPATCHER 06/06/2020 Last Documented On 1 2:06PM ; [facility] Antiasthmatics [facility] Asthma Clinic-New with Karla Amber COTTON DISPATCHER 05/06/2020 Last Documented On 0 7:27PM ; [facility] Assessment of tobacco use [facility] Asthma Clinic-New with Karla Amber COTTON DISPATCHER 05/06/2020 Last Documented On 0 7:27PM ; [facility] Body mass index [facility] Asthma Clinic-New with Karla Amber COTTON DISPATCHER 05/06/2020 Last Documented On 0 7:27PM ; [facility] Chronic obstructive pulmonary disease S [facility] Clinic-New with Karla Amber COTTON DISPATCHER 05/06/2020 Last Documented On 0 7:27PM ; [facility] Overweight [facility] Asthma Clinic-New with Karlanaveed Floresen COTTON DISPATCHER 05/06/2020 Last Documented On 0 7:27PM ; [facility] Z11.4 - Encounter for screen ing for human immunodeficiency virus [HIV] [facility] Asthma Clinic-New with Karlanaveed Floresen COTTON DISPATCHER 05/06/2020 Last Documented On 0 7:27PM ; [facility] Diabetes Risk Test Score was three score 03/31/2020 Medical Established Patient with Karla Floresen COTTON DISPATCHER 03/31/2020 Last Documented On 0 3:22PM ; [facility] Overweight Medical Established Patient with Karla Amber COTTON DISPATCHER 03/31/2020 Last Documented On 0 3:22PM ; [facility] Z68.25 - Body mass index [BM I] 25.0-25.9, adult Medical Established Patient with Karlanaveed Floresen COTTON DISPATCHER 03/31/2020 Last Documented On 0 3:22PM ; [facility] Encounter for Immunization Nurse Visit with Gary Clark COTTON DISPATCHER 03/14/2020 Last Documented On 0 5:11PM ; [facility] Body mass index Medical Established Patient with Karlanaveed Floresen COTTON DISPATCHER 02/26/2020 Last Documented On 0 1:18PM ; [facility] Overweight Medical Established Patient with Karla Amber COTTON DISPATCHER 02/26/2020 Last Documented On 0 1:18PM ; [facility] Overweight Medical Established Patient with Karla Amber COTTON DISPATCHER 07/23/2019 Last Documented On 0 2:33PM ; [facility] Z68.27 - Body mass index (BM I) 27.0-27.9, adult Medical Established Patient with Karla Amber COTTON DISPATCHER 07/23/2019 Last Documented On 0 2:33PM ; [facility] Occasional asthma CPS- Asthma Clinic- F/U with A imee Amber COTTON DISPATCHER 06/05/2019 Last Documented On 0 7:04PM ; [facility] Overweight CPS- [facility] Clinic- F/U with Aim ee Amber COTTON DISPATCHER 06/05/2019 Last Documented On 0 7:04PM ; [facility] Z68.27 - Body mass index (BM I) 27.0-27.9 adult CPS- Asthma Clinic- F/U with Karla Amber COTTON DISPATCHER 06/05/2019 Last Documented On 0 7:04PM ; [facility] Occasional asthma CPS Med Review with Kalra Sandra en COTTON DISPATCHER 04/23/2019 Last Documented On 9 4:01PM ; [facility] Overweight CPS Med Review with Karla Amber COTTON DISPATCHER 04/23/2019 Last Documented On 9 4:01PM ; [facility] Z68.27 - Body mass index (BM I) 27.0-27.9 adult CPS Med Review with Karla Amber COTTON DISPATCHER 04/23/2019 Last Documented On 9 4:01PM ; [facility] Acute pharyngitis Medical Established Patient wi th Brandy Kelley COTTON DISPATCHER 04/15/2019 Last Documented On 9 12:31PM ; [facility] Asthmatic bronchitis with ac wales exacerbation Medical Established Patient with Brandy Warren COTTON DISPATCHER 04/15/2019 Last Documented On 9 12:31PM ; [facility] Fagerstrom Score was two Medical Established Pat ient with Brandy Warren COTTON DISPATCHER 04/15/2019 Last Documented On 9 12:31PM ; [facility] PHQ-9: total score was three 04/15/2019 Medical Established Patient with Brandy Kelley COTTON DISPATCHER 04/15/2019 Last Documented On 9 12:31PM ; [facility] Body mass index Medical Established Patient with Karlanaveed Floresen COTTON DISPATCHER 03/05/2019 Last Documented On 9 10:27AM ; [facility] Diabetes Risk Test Score was three score Medical Established Patient with Karla Amber COTTON DISPATCHER 03/05/2019 Last Documented On 9 10:27AM ; [facility] Overweight Medical Established Patient with Karla Amber COTTON DISPATCHER 03/05/2019 Last Documented On 9 10:27AM ; [facility] Z68.28 - Body mass index (BM I) 28.0-28.9, adult Medical Established Patient with Karla Amber COTTON DISPATCHER 12/22/2018 Last Documented On 9 10:32AM ; [facility] Assess routine adult history and physical (18 - 64 yrs) Medical Established Patient with Karla Amber COTTON DISPATCHER 11/06/2018 Last Documented On 9 2:26PM ; [facility] Overweight Medical Established Patient with Karla Amber COTTON DISPATCHER 11/06/2018 Last Documented On 9 2:26PM ; [facility] Z68.28 - Body mass index (BM I) 28.0-28.9, adult Medical Established Patient with Karla Amber COTTON DISPATCHER 11/06/2018 Last Documented On 9 2:26PM ; [facility] Assess dysphagia Medical Established Patient wit h Karla Amber COTTON DISPATCHER 09/11/2018 Last Documented On 9 10:53AM ; [facility] Assess routine adult history and physical (18 - 64 yrs) Medical Established Patient with Karla Amber COTTON DISPATCHER 09/11/2018 Last Documented On 9 10:53AM ; [facility] Assess primary insomnia with sleep apnea Medical Established Patient with Karla Amber COTTON DISPATCHER 09/04/2018 Last Documented On 9 2:23PM ; [facility] Assess routine adult history and physical (18 - 64 yrs) Medical Established Patient with Karla Amber COTTON DISPATCHER 09/04/2018 Last Documented On 9 2:23PM ; [facility] Overweight Medical Established Patient with Karla Clark COTTON DISPATCHER 09/04/2018 Last Documented On 9 2:23PM ; [facility] Z68.29 - Body mass index (BM I) 29.0-29.9, adult Medical Established Patient with Karla Clark COTTON DISPATCHER 09/04/2018 Last Documented On 9 2:23PM ; [facility] Assess vaginal candidiasis Medical Estab lished Patient with Karla Clark COTTON DISPATCHER 07/31/2018 Last Documented On 9 2:12PM ; [facility] Work Phone: Evaluation note Includes: Assessments for all patient encounters Findings Encounter Date [M25.569 - Pain in unspecifi ed knee] arthralgia of knee / patella / tibia / fibula Medical Established Patient with Karla Clark CNP 08/27/2022 Last Documented On 3 9:20AM ; [facility] [Z68.24 - Body mass index [B AR] 24.0-24.9, adult] assessment of body mass index Medical Established Patient with Karla Clark COTTON DISPATCHER 08/27/2022 Last Documented On 3 9:20AM ; [facility] Intervention and counseling on cessation of tobacco use, 3-10 minutes Discussed medication and nicotine replacement for tobacco cessation Medical Established Patient with Karla Clark CNP 08/27/2022 Last Documented On 3 9:20AM ; [facility] Nicotine dependence Medical Established Patient with Karla Clark COTTON DISPATCHER 08/27/2022 Last Documented On 3 9:20AM ; [facility] Visit for routine adult H&P without abnormal findings Medical Established Patient with Karla Clark COTTON DISPATCHER 08/27/2022 Last Documented On 3 9:20AM ; [facility] [H92.02 - Otalgia, left ear] earache Med ical Established Patient with Karla Clark COTTON DISPATCHER 06/18/2022 Last Documented On 3 12:11PM ; [facility] [M79.604 - Pain in right leg ] pain in right leg Medical Established Patient with Karla Clark COTTON DISPATCHER 06/18/2022 Last Documented On 3 12:11PM ; [facility] [Z68.24 - Body mass index [B AR] 24.0-24.9, adult] assessment of body mass index Medical Established Patient with Karla Clark COTTON DISPATCHER 06/18/2022 Last Documented On 3 12:11PM ; [facility] Assessment of tobacco use Medical Establ ished Patient with Karla Clark COTTON DISPATCHER 06/18/2022 Last Documented On 3 12:11PM ; [facility] Diabetes Risk Test Score was four score 06/18/2022 Medical Established Patient with Karla Clark COTTON DISPATCHER 06/18/2022 Last Documented On 3 12:11PM ; [facility] Schizoaffective disorder Established Patient with Yin Feliz LPCC-S 03/20/2022 Last Documented On 2 12:13AM ; [facility] No cough Medical Established Patient with Karla Floresen COTTON DISPATCHER 12/20/2021 Last Documented On 2 3:12PM ; [facility] Visit for: screening for hum an immunodeficiency virus Medical Established Patient with Karla Clark COTTON DISPATCHER 12/20/2021 Last Documented On 2 3:12PM ; [facility] Z68.24 - Body mass index [BM I] 24.0-24.9, adult Medical Established Patient with Karla Floresen COTTON DISPATCHER 12/20/2021 Last Documented On 2 3:12PM ; [facility] Bipolar disorder NOS Established Patient with Yin Feliz LPCC-S 11/03/2021 Last Documented On 2 7:00PM ; [facility] Bipolar schizoaffective disorder BH Esta blished Patient with Yin Feliz LPCC-S 11/03/2021 Last Documented On 2 7:00PM ; [facility] PLAN Medical Established Patient with Don Pino MD 11/03/2021 Last Documented On 2 10:40AM ; [facility] Abnormal electrocardiogram Medical Estab lished Patient with Don Pino MD 11/03/2021 Last Documented On 2 10:40AM ; [facility] Z68.24 - Body mass index [BM I] 24.0-24.9, adult Medical Established Patient with Don Pino MD 11/03/2021 Last Documented On 2 10:40AM ; [facility] Cough Medical Established Patient with Karlanaveed Clark COTTON DISPATCHER 07/28/2021 Last Documented On 2 2:01PM ; [facility] Intervention and counseling on cessation of tobacco use, 3-10 minutes Discussed medication and nicotine replacement for tobacco cessation Medical Established Patient with Karla Amber COTTON DISPATCHER 07/28/2021 Last Documented On 2 2:01PM ; [facility] Nicotine dependence Medical Established Patient with Karla Amber COTTON DISPATCHER 07/28/2021 Last Documented On 2 2:01PM ; [facility] Z68.24 - Body mass index [BM I] 24.0-24.9, adult Medical Established Patient with Karla Amber COTTON DISPATCHER 07/28/2021 Last Documented On 2 2:01PM ; [facility] Assess Colon screening Medical Established Patie nt with Karla Amber COTTON DISPATCHER 05/08/2021 Last Documented On 1 10:59AM ; [facility] Diabetes Risk Test Score was four score 05/08/2021 Medical Established Patient with Karla Amber COTTON DISPATCHER 05/08/2021 Last Documented On 1 10:59AM ; [facility] Routine adult history and ph ysical (18-64 yrs) without abnormal findings Medical Established Patient with Karla Amber COTTON DISPATCHER 05/08/2021 Last Documented On 1 10:59AM ; [facility] Z68.24 - Body mass index [BM I] 24.0-24.9, adult Medical Established Patient with Karla Amber COTTON DISPATCHER 05/08/2021 Last Documented On 1 10:59AM ; [facility] Z68.24 - Body mass index [BM I] 24.0-24.9, adult Medical Established Patient with Karla Amber COTTON DISPATCHER 06/17/2020 Last Documented On 1 10:30AM ; [facility] Overweight Medical Established Patient with Karla Amber COTTON DISPATCHER 06/06/2020 Last Documented On 1 2:06PM ; [facility] Z68.25 - Body mass index [BM I] 25.0-25.9, adult Medical Established Patient with Karlanaveed Floresen COTTON DISPATCHER 06/06/2020 Last Documented On 1 2:06PM ; [facility] Antiasthmatics [facility] Asthma Clinic-New with Karla Amber COTTON DISPATCHER 05/06/2020 Last Documented On 0 7:27PM ; [facility] Assessment of tobacco use [facility] Asthma Clinic-New with Karla Amber COTTON DISPATCHER 05/06/2020 Last Documented On 0 7:27PM ; [facility] Body mass index [facility] Asthma Clinic-New with Karla Amber COTTON DISPATCHER 05/06/2020 Last Documented On 0 7:27PM ; [facility] Chronic obstructive pulmonary disease CP S Asthma Clinic-New with Karla Amber COTTON DISPATCHER 05/06/2020 Last Documented On 0 7:27PM ; [facility] Overweight [facility] Asthma Clinic-New with Karla Amber COTTON DISPATCHER 05/06/2020 Last Documented On 0 7:27PM ; [facility] Z11.4 - Encounter for screen ing for human immunodeficiency virus [HIV] [facility] Asthma Clinic-New with Karlanaveed Floresen COTTON DISPATCHER 05/06/2020 Last Documented On 0 7:27PM ; [facility] Diabetes Risk Test Score was three score 03/31/2020 Medical Established Patient with Karla Amber COTTON DISPATCHER 03/31/2020 Last Documented On 0 3:22PM ; [facility] Overweight Medical Established Patient with Karla Amber COTTON DISPATCHER 03/31/2020 Last Documented On 0 3:22PM ; [facility] Z68.25 - Body mass index [BM I] 25.0-25.9, adult Medical Established Patient with Karla Amber COTTON DISPATCHER 03/31/2020 Last Documented On 0 3:22PM ; [facility] Encounter for Immunization Nurse Visit with Gary Clark COTTON DISPATCHER 03/14/2020 Last Documented On 0 5:11PM ; [facility] Body mass index Medical Established Patient with Karla Amber COTTON DISPATCHER 02/26/2020 Last Documented On 0 1:18PM ; [facility] Overweight Medical Established Patient with Karla Amber COTTON DISPATCHER 02/26/2020 Last Documented On 0 1:18PM ; [facility] Overweight Medical Established Patient with Karla Amber COTTON DISPATCHER 07/23/2019 Last Documented On 0 2:33PM ; [facility] Z68.27 - Body mass index (BM I) 27.0-27.9, adult Medical Established Patient with Karla Amber COTTON DISPATCHER 07/23/2019 Last Documented On 0 2:33PM ; [facility] Occasional asthma CPS- Asthma Clinic- F/U with A imnaveed Floresen COTTON DISPATCHER 06/05/2019 Last Documented On 0 7:04PM ; [facility] Overweight CPS- Asthma Clinic- F/U with Aim ee Amber COTTON DISPATCHER 06/05/2019 Last Documented On 0 7:04PM ; [facility] Z68.27 - Body mass index (BM I) 27.0-27.9 adult CPS- Asthma Clinic- F/U with Karlanaveed Floresen COTTON DISPATCHER 06/05/2019 Last Documented On 0 7:04PM ; [facility] Occasional asthma CPS Med Review with Karla Sandra en COTTON DISPATCHER 04/23/2019 Last Documented On 9 4:01PM ; [facility] Overweight CPS Med Review with Karla Amber COTTON DISPATCHER 04/23/2019 Last Documented On 9 4:01PM ; [facility] Z68.27 - Body mass index (BM I) 27.0-27.9 adult CPS Med Review with Karla Amber COTTON DISPATCHER 04/23/2019 Last Documented On 9 4:01PM ; [facility] Acute pharyngitis Medical Established Patient wi th Brandy Serranoer COTTON DISPATCHER 04/15/2019 Last Documented On 9 12:31PM ; [facility] Asthmatic bronchitis with ac wales exacerbation Medical Established Patient with Brandy Warren COTTON DISPATCHER 04/15/2019 Last Documented On 9 12:31PM ; [facility] Fagerstrom Score was two Medical Established Pat ient with Brandy Warren COTTON DISPATCHER 04/15/2019 Last Documented On 9 12:31PM ; [facility] PHQ-9: total score was three 04/15/2019 Medical Established Patient with Brandy Warren COTTON DISPATCHER 04/15/2019 Last Documented On 9 12:31PM ; [facility] Body mass index Medical Established Patient with Karla Amber COTTON DISPATCHER 03/05/2019 Last Documented On 9 10:27AM ; [facility] Diabetes Risk Test Score was three score Medical Established Patient with Karla Amber COTTON DISPATCHER 03/05/2019 Last Documented On 9 10:27AM ; [facility] Overweight Medical Established Patient with Karla Amber COTTON DISPATCHER 03/05/2019 Last Documented On 9 10:27AM ; [facility] Z68.28 - Body mass index (BM I) 28.0-28.9, adult Medical Established Patient with Karla Amber COTTON DISPATCHER 12/22/2018 Last Documented On 9 10:32AM ; [facility] Assess routine adult history and physical (18 - 64 yrs) Medical Established Patient with Karla Amber COTTON DISPATCHER 11/06/2018 Last Documented On 9 2:26PM ; [facility] Overweight Medical Established Patient with Karla Amber COTTON DISPATCHER 11/06/2018 Last Documented On 9 2:26PM ; [facility] Z68.28 - Body mass index (BM I) 28.0-28.9, adult Medical Established Patient with Karla Amber COTTON DISPATCHER 11/06/2018 Last Documented On 9 2:26PM ; [facility] Assess dysphagia Medical Established Patient wit h Karla Amber COTTON DISPATCHER 09/11/2018 Last Documented On 9 10:53AM ; [facility] Assess routine adult history and physical (18 - 64 yrs) Medical Established Patient with Karla Amber COTTON DISPATCHER 09/11/2018 Last Documented On 9 10:53AM ; [facility] Assess primary insomnia with sleep apnea Medical Established Patient with Karla Amber COTTON DISPATCHER 09/04/2018 Last Documented On 9 2:23PM ; [facility] Assess routine adult history and physical (18 - 64 yrs) Medical Established Patient with Karla Clark COTTON DISPATCHER 09/04/2018 Last Documented On 9 2:23PM ; [facility] Overweight Medical Established Patient with Karla Amber COTTON DISPATCHER 09/04/2018 Last Documented On 9 2:23PM ; [facility] Z68.29 - Body mass index (BM I) 29.0-29.9, adult Medical Established Patient with Karla Clark COTTON DISPATCHER 09/04/2018 Last Documented On 9 2:23PM ; [facility] Assess vaginal candidiasis Medical Estab lished Patient with Karla Clark COTTON DISPATCHER 07/31/2018 Last Documented On 9 2:12PM ; [facility] Work Phone: Evaluation noteNo assessment information available [facility] Work Phone: Evaluation noteNo InformationNosoutheast [facility]ouri [facility] [employer] Other Evaluation note Includes: Assessments for all patient encounters Findings Encounter Date [J20.9 - Acute bronchitis, unspecified] acute bronchitis Medical Established Patient with Karla Clark COTTON DISPATCHER 11/19/2022 Last Documented On 3 10:15AM ; [facility] [M79.621 - Pain in right upp er arm] pain in upper arm Medical Established Patient with Karla Clark COTTON DISPATCHER 11/19/2022 Last Documented On 3 10:15AM ; [facility] [Z68.23 - Body mass index [B AR] 23.0-23.9, adult] assessment of body mass index Medical Established Patient with Karla Clark COTTON DISPATCHER 11/19/2022 Last Documented On 3 10:15AM ; [facility] [M79.601 - Pain in right arm ] pain in right arm Medical Established Patient with Karla Clark COTTON DISPATCHER 09/18/2022 Last Documented On 3 2:33PM ; [facility] [Z68.24 - Body mass index [B AR] 24.0-24.9, adult] assessment of body mass index Medical Established Patient with Karla Clark COTTON DISPATCHER 09/18/2022 Last Documented On 3 2:33PM ; [facility] Assessment of tobacco use Medical Establ ished Patient with Karla Clark COTTON DISPATCHER 09/18/2022 Last Documented On 3 2:33PM ; [facility] [M25.569 - Pain in unspecifi ed knee] arthralgia of knee / patella / tibia / fibula Medical Established Patient with Karla Clark COTTON DISPATCHER 08/27/2022 Last Documented On 3 9:20AM ; [facility] [Z68.24 - Body mass index [B AR] 24.0-24.9, adult] assessment of body mass index Medical Established Patient with Karla Clark CNP 08/27/2022 Last Documented On 3 9:20AM ; [facility] Intervention and counseling on cessation of tobacco use, 3-10 minutes Discussed medication and nicotine replacement for tobacco cessation Medical Established Patient with Karla Clark COTTON DISPATCHER 08/27/2022 Last Documented On 3 9:20AM ; [facility] Nicotine dependence Medical Established Patient with Karla Clark CNP 08/27/2022 Last Documented On 3 9:20AM ; [facility] Visit for routine adult H&P without abnormal findings Medical Established Patient with Karla Clark CNP 08/27/2022 Last Documented On 3 9:20AM ; [facility] [H92.02 - Otalgia, left ear] earache Med ical Established Patient with Karla Clark COTTON DISPATCHER 06/18/2022 Last Documented On 3 12:11PM ; [facility] [M79.604 - Pain in right leg ] pain in right leg Medical Established Patient with Karla Clark CNP 06/18/2022 Last Documented On 3 12:11PM ; [facility] [Z68.24 - Body mass index [B AR] 24.0-24.9, adult] assessment of body mass index Medical Established Patient with Karla Clark COTTON DISPATCHER 06/18/2022 Last Documented On 3 12:11PM ; [facility] Assessment of tobacco use Medical Establ ished Patient with Karlanaveed Floresen COTTON DISPATCHER 06/18/2022 Last Documented On 3 12:11PM ; [facility] Diabetes Risk Test Score was four score 06/18/2022 Medical Established Patient with Karlanaveed Floresen COTTON DISPATCHER 06/18/2022 Last Documented On 3 12:11PM ; [facility] Schizoaffective disorder Established Patient with Yin Feliz LPCC-S 03/20/2022 Last Documented On 2 12:13AM ; [facility] No cough Medical Established Patient with Karla Amber COTTON DISPATCHER 12/20/2021 Last Documented On 2 3:12PM ; [facility] Visit for: screening for hum an immunodeficiency virus Medical Established Patient with Karlanaveed Floresen COTTON DISPATCHER 12/20/2021 Last Documented On 2 3:12PM ; [facility] Z68.24 - Body mass index [BM I] 24.0-24.9, adult Medical Established Patient with Karla Floresen COTTON DISPATCHER 12/20/2021 Last Documented On 2 3:12PM ; [facility] Bipolar disorder NOS Established Patient with Yin Feliz LPCC-S 11/03/2021 Last Documented On 2 7:00PM ; [facility] Bipolar schizoaffective disorder BH Esta blished Patient with Yin Feliz LPCC-S 11/03/2021 Last Documented On 2 7:00PM ; [facility] PLAN Medical Established Patient with Don Pino MD 11/03/2021 Last Documented On 2 10:40AM ; [facility] Abnormal electrocardiogram Medical Estab lished Patient with Don Pino MD 11/03/2021 Last Documented On 2 10:40AM ; [facility] Z68.24 - Body mass index [BM I] 24.0-24.9, adult Medical Established Patient with Don Pino MD 11/03/2021 Last Documented On 2 10:40AM ; [facility] Cough Medical Established Patient with Karlanaveed Clark COTTON DISPATCHER 07/28/2021 Last Documented On 2 2:01PM ; [facility] Intervention and counseling on cessation of tobacco use, 3-10 minutes Discussed medication and nicotine replacement for tobacco cessation Medical Established Patient with Karla Clark COTTON DISPATCHER 07/28/2021 Last Documented On 2 2:01PM ; [facility] Nicotine dependence Medical Established Patient with Karla Amber COTTON DISPATCHER 07/28/2021 Last Documented On 2 2:01PM ; [facility] Z68.24 - Body mass index [BM I] 24.0-24.9, adult Medical Established Patient with Karla Clark COTTON DISPATCHER 07/28/2021 Last Documented On 2 2:01PM ; [facility] Assess Colon screening Medical Established Patie nt with Karla Clark COTTON DISPATCHER 05/08/2021 Last Documented On 1 10:59AM ; [facility] Diabetes Risk Test Score was four score 05/08/2021 Medical Established Patient with Karla Clark COTTON DISPATCHER 05/08/2021 Last Documented On 1 10:59AM ; [facility] Routine adult history and ph ysical (18-64 yrs) without abnormal findings Medical Established Patient with Karla Clark COTTON DISPATCHER 05/08/2021 Last Documented On 1 10:59AM ; [facility] Z68.24 - Body mass index [BM I] 24.0-24.9, adult Medical Established Patient with Karla Clark COTTON DISPATCHER 05/08/2021 Last Documented On 1 10:59AM ; [facility] Z68.24 - Body mass index [BM I] 24.0-24.9, adult Medical Established Patient with Karla Amber COTTON DISPATCHER 06/17/2020 Last Documented On 1 10:30AM ; [facility] Overweight Medical Established Patient with Karla Amber COTTON DISPATCHER 06/06/2020 Last Documented On 1 2:06PM ; [facility] Z68.25 - Body mass index [BM I] 25.0-25.9, adult Medical Established Patient with Karla Amber COTTON DISPATCHER 06/06/2020 Last Documented On 1 2:06PM ; [facility] Antiasthmatics [facility] Asthma Clinic-New with Karla Amber COTTON DISPATCHER 05/06/2020 Last Documented On 0 7:27PM ; [facility] Assessment of tobacco use [facility]-New with Karla Amber COTTON DISPATCHER 05/06/2020 Last Documented On 0 7:27PM ; [facility] Body mass index [facility]-New with Karla Amber COTTON DISPATCHER 05/06/2020 Last Documented On 0 7:27PM ; [facility] Chronic obstructive pulmonary disease S [facility]-New with Karla Amber COTTON DISPATCHER 05/06/2020 Last Documented On 0 7:27PM ; [facility] Overweight [facility]-New with Karla Amber COTTON DISPATCHER 05/06/2020 Last Documented On 0 7:27PM ; [facility] Z11.4 - Encounter for screen ing for human immunodeficiency virus [HIV] [facility]-New with Karlanaveed Floresen COTTON DISPATCHER 05/06/2020 Last Documented On 0 7:27PM ; [facility] Diabetes Risk Test Score was three score 03/31/2020 Medical Established Patient with Karla Amber COTTON DISPATCHER 03/31/2020 Last Documented On 0 3:22PM ; [facility] Overweight Medical Established Patient with Karla Amber COTTON DISPATCHER 03/31/2020 Last Documented On 0 3:22PM ; [facility] Z68.25 - Body mass index [BM I] 25.0-25.9, adult Medical Established Patient with Karlanaveed Floresen COTTON DISPATCHER 03/31/2020 Last Documented On 0 3:22PM ; [facility] Encounter for Immunization Nurse Visit with Gary Clark COTTON DISPATCHER 03/14/2020 Last Documented On 0 5:11PM ; [facility] Body mass index Medical Established Patient with Karla Amber COTTON DISPATCHER 02/26/2020 Last Documented On 0 1:18PM ; [facility] Overweight Medical Established Patient with Karla Amber COTTON DISPATCHER 02/26/2020 Last Documented On 0 1:18PM ; [facility] Overweight Medical Established Patient with Karla Amber COTTON DISPATCHER 07/23/2019 Last Documented On 0 2:33PM ; [facility] Z68.27 - Body mass index (BM I) 27.0-27.9, adult Medical Established Patient with Karla Floresen COTTON DISPATCHER 07/23/2019 Last Documented On 0 2:33PM ; [facility] Occasional asthma [facility]- [facility]- F/U with A french Clark COTTON DISPATCHER 06/05/2019 Last Documented On 0 7:04PM ; [facility] Overweight C[facility]- [facility]- F/U with Aim naveed Clark COTTON DISPATCHER 06/05/2019 Last Documented On 0 7:04PM ; [facility] Z68.27 - Body mass index (BM I) 27.0-27.9 adult [facility]- [facility] Clinic- F/U with Karla Clark COTTON DISPATCHER 06/05/2019 Last Documented On 0 7:04PM ; [facility] Occasional asthma CPS Med Review with Karla dinh COTTON DISPATCHER 04/23/2019 Last Documented On 9 4:01PM ; [facility] Overweight CPS Med Review with Karla Clark COTTON DISPATCHER 04/23/2019 Last Documented On 9 4:01PM ; [facility] Z68.27 - Body mass index (BM I) 27.0-27.9 adult CPS Med Review with Karla Clark COTTON DISPATCHER 04/23/2019 Last Documented On 9 4:01PM ; [facility] Acute pharyngitis Medical Established Patient wi th Brandy Serranoer COTTON DISPATCHER 04/15/2019 Last Documented On 9 12:31PM ; [facility] Asthmatic bronchitis with ac wales exacerbation Medical Established Patient with Brandy Warren COTTON DISPATCHER 04/15/2019 Last Documented On 9 12:31PM ; [facility] Fagerstrom Score was two Medical Established Pat ient with Brandy Warren COTTON DISPATCHER 04/15/2019 Last Documented On 9 12:31PM ; [facility] PHQ-9: total score was three 04/15/2019 Medical Established Patient with Brandy Warren COTTON DISPATCHER 04/15/2019 Last Documented On 9 12:31PM ; [facility] Body mass index Medical Established Patient with Karla Amber COTTON DISPATCHER 03/05/2019 Last Documented On 9 10:27AM ; [facility] Diabetes Risk Test Score was three score Medical Established Patient with Karla Amber COTTON DISPATCHER 03/05/2019 Last Documented On 9 10:27AM ; [facility] Overweight Medical Established Patient with Karla Amber COTTON DISPATCHER 03/05/2019 Last Documented On 9 10:27AM ; [facility] Z68.28 - Body mass index (BM I) 28.0-28.9, adult Medical Established Patient with Karla Amber COTTON DISPATCHER 12/22/2018 Last Documented On 9 10:32AM ; [facility] Assess routine adult history and physical (18 - 64 yrs) Medical Established Patient with Karla Amber COTTON DISPATCHER 11/06/2018 Last Documented On 9 2:26PM ; [facility] Overweight Medical Established Patient with Karla Amber COTTON DISPATCHER 11/06/2018 Last Documented On 9 2:26PM ; [facility] Z68.28 - Body mass index (BM I) 28.0-28.9, adult Medical Established Patient with Karla Amber COTTON DISPATCHER 11/06/2018 Last Documented On 9 2:26PM ; [facility] Assess dysphagia Medical Established Patient wit h Karla Amber COTTON DISPATCHER 09/11/2018 Last Documented On 9 10:53AM ; [facility] Assess routine adult history and physical (18 - 64 yrs) Medical Established Patient with Karla Amber COTTON DISPATCHER 09/11/2018 Last Documented On 9 10:53AM ; [facility] Assess primary insomnia with sleep apnea Medical Established Patient with Karla Amber COTTON DISPATCHER 09/04/2018 Last Documented On 9 2:23PM ; [facility] Assess routine adult history and physical (18 - 64 yrs) Medical Established Patient with Karla Amber COTTON DISPATCHER 09/04/2018 Last Documented On 9 2:23PM ; [facility] Overweight Medical Established Patient with Karla Amber COTTON DISPATCHER 09/04/2018 Last Documented On 9 2:23PM ; [facility] Z68.29 - Body mass index (BM I) 29.0-29.9, adult Medical Established Patient with Karla Clark COTTON DISPATCHER 09/04/2018 Last Documented On 9 2:23PM ; [facility] Assess vaginal candidiasis Medical Estab lished Patient with Karla Clark COTTON DISPATCHER 07/31/2018 Last Documented On 9 2:12PM ; [facility] Work Phone: Evaluation note Includes: Assessments for all patient encounters Findings Encounter Date [Z12.39 - Encounter for othe r screening for malignant neoplasm of breast] visit for: screening for malignant breast neoplasm Medical Established Patient with Aaron Whitaker COTTON DISPATCHER 02/28/2023 Last Documented On 3 9:51AM ; [facility] [Z68.24 - Body mass index [B AR] 24.0-24.9, adult] assessment of body mass index Medical Established Patient with Aaron Whitaker COTTON DISPATCHER 02/28/2023 Last Documented On 3 9:51AM ; [facility] Assessment of tobacco use Medical Establ ished Patient with Aaron Whitaker COTTON DISPATCHER 02/28/2023 Last Documented On 3 9:51AM ; [facility] Chronic obstructive pulmonary disease Me dical Established Patient with Aaron Whitaker COTTON DISPATCHER 02/28/2023 Last Documented On 3 9:51AM ; [facility] [J20.9 - Acute bronchitis, unspecified] acute bronchitis Medical Established Patient with Karla Clark COTTON DISPATCHER 11/19/2022 Last Documented On 3 10:15AM ; [facility] [M79.621 - Pain in right upp er arm] pain in upper arm Medical Established Patient with Karla Clark COTTON DISPATCHER 11/19/2022 Last Documented On 3 10:15AM ; [facility] [Z68.23 - Body mass index [B AR] 23.0-23.9, adult] assessment of body mass index Medical Established Patient with Karla Clark COTTON DISPATCHER 11/19/2022 Last Documented On 3 10:15AM ; [facility] [M79.601 - Pain in right arm ] pain in right arm Medical Established Patient with Karla Clark CNP 09/18/2022 Last Documented On 3 2:33PM ; [facility] [Z68.24 - Body mass index [B AR] 24.0-24.9, adult] assessment of body mass index Medical Established Patient with Karla Clark COTTON DISPATCHER 09/18/2022 Last Documented On 3 2:33PM ; [facility] Assessment of tobacco use Medical Establ ished Patient with Karla Clark COTTON DISPATCHER 09/18/2022 Last Documented On 3 2:33PM ; [facility] [M25.569 - Pain in unspecifi ed knee] arthralgia of knee / patella / tibia / fibula Medical Established Patient with Karla Clark COTTON DISPATCHER 08/27/2022 Last Documented On 3 9:20AM ; [facility] [Z68.24 - Body mass index [B AR] 24.0-24.9, adult] assessment of body mass index Medical Established Patient with Karla Clark COTTON DISPATCHER 08/27/2022 Last Documented On 3 9:20AM ; [facility] Intervention and counseling on cessation of tobacco use, 3-10 minutes Discussed medication and nicotine replacement for tobacco cessation Medical Established Patient with Karla Clark CNP 08/27/2022 Last Documented On 3 9:20AM ; [facility] Nicotine dependence Medical Established Patient with Karla Clark CNP 08/27/2022 Last Documented On 3 9:20AM ; [facility] Visit for routine adult H&P without abnormal findings Medical Established Patient with Karla Clark CNP 08/27/2022 Last Documented On 3 9:20AM ; [facility] [H92.02 - Otalgia, left ear] earache Med ical Established Patient with Karla Clark COTTON DISPATCHER 06/18/2022 Last Documented On 3 12:11PM ; [facility] [M79.604 - Pain in right leg ] pain in right leg Medical Established Patient with Karla Clark COTTON DISPATCHER 06/18/2022 Last Documented On 3 12:11PM ; [facility] [Z68.24 - Body mass index [B AR] 24.0-24.9, adult] assessment of body mass index Medical Established Patient with Karla Clark COTTON DISPATCHER 06/18/2022 Last Documented On 3 12:11PM ; [facility] Assessment of tobacco use Medical Establ ished Patient with Karla Clark COTTON DISPATCHER 06/18/2022 Last Documented On 3 12:11PM ; [facility] Diabetes Risk Test Score was four score 06/18/2022 Medical Established Patient with Karla Clark COTTON DISPATCHER 06/18/2022 Last Documented On 3 12:11PM ; [facility] Schizoaffective disorder Established Patient with Yin Feliz LPCC-S 03/20/2022 Last Documented On 2 12:13AM ; [facility] No cough Medical Established Patient with Karla Clark COTTON DISPATCHER 12/20/2021 Last Documented On 2 3:12PM ; [facility] Visit for: screening for hum an immunodeficiency virus Medical Established Patient with Karla Clark COTTON DISPATCHER 12/20/2021 Last Documented On 2 3:12PM ; [facility] Z68.24 - Body mass index [BM I] 24.0-24.9, adult Medical Established Patient with Karla Clark COTTON DISPATCHER 12/20/2021 Last Documented On 2 3:12PM ; [facility] Bipolar disorder NOS BH Established Patient with Yin Feliz LPCC-S 11/03/2021 Last Documented On 2 7:00PM ; [facility] Bipolar schizoaffective disorder BH Esta blished Patient with Yin Feliz LPCC-S 11/03/2021 Last Documented On 2 7:00PM ; [facility] PLAN Medical Established Patient with Don Pino MD 11/03/2021 Last Documented On 2 10:40AM ; [facility] Abnormal electrocardiogram Medical Estab lished Patient with Don Pino MD 11/03/2021 Last Documented On 2 10:40AM ; [facility] Z68.24 - Body mass index [BM I] 24.0-24.9, adult Medical Established Patient with Don Pino MD 11/03/2021 Last Documented On 2 10:40AM ; [facility] Cough Medical Established Patient with Karla Amber COTTON DISPATCHER 07/28/2021 Last Documented On 2 2:01PM ; [facility] Intervention and counseling on cessation of tobacco use, 3-10 minutes Discussed medication and nicotine replacement for tobacco cessation Medical Established Patient with Karla Amber COTTON DISPATCHER 07/28/2021 Last Documented On 2 2:01PM ; [facility] Nicotine dependence Medical Established Patient with Karla Amber COTTON DISPATCHER 07/28/2021 Last Documented On 2 2:01PM ; [facility] Z68.24 - Body mass index [BM I] 24.0-24.9, adult Medical Established Patient with Karla Amber COTTON DISPATCHER 07/28/2021 Last Documented On 2 2:01PM ; [facility] Assess Colon screening Medical Established Patie nt with Karla Amber COTTON DISPATCHER 05/08/2021 Last Documented On 1 10:59AM ; [facility] Diabetes Risk Test Score was four score 05/08/2021 Medical Established Patient with Karla Amber COTTON DISPATCHER 05/08/2021 Last Documented On 1 10:59AM ; [facility] Routine adult history and ph ysical (18-64 yrs) without abnormal findings Medical Established Patient with Karla Amber COTTON DISPATCHER 05/08/2021 Last Documented On 1 10:59AM ; [facility] Z68.24 - Body mass index [BM I] 24.0-24.9, adult Medical Established Patient with Karla Amber COTTON DISPATCHER 05/08/2021 Last Documented On 1 10:59AM ; [facility] Z68.24 - Body mass index [BM I] 24.0-24.9, adult Medical Established Patient with Karla Amber COTTON DISPATCHER 06/17/2020 Last Documented On 1 10:30AM ; [facility] Overweight Medical Established Patient with Karla Amber COTTON DISPATCHER 06/06/2020 Last Documented On 1 2:06PM ; [facility] Z68.25 - Body mass index [BM I] 25.0-25.9, adult Medical Established Patient with Karla Clark COTTON DISPATCHER 06/06/2020 Last Documented On 1 2:06PM ; [facility] Antiasthmatics [facility] Asthma Clinic-New with Karla Amber COTTON DISPATCHER 05/06/2020 Last Documented On 0 7:27PM ; [facility] Assessment of tobacco use [facility]-New with Karla Amber COTTON DISPATCHER 05/06/2020 Last Documented On 0 7:27PM ; [facility] Body mass index [facility]-New with Karla Amber COTTON DISPATCHER 05/06/2020 Last Documented On 0 7:27PM ; [facility] Chronic obstructive pulmonary disease S [facility] with Karla Amber COTTON DISPATCHER 05/06/2020 Last Documented On 0 7:27PM ; [facility] Overweight [facility]-New with Karla Amber COTTON DISPATCHER 05/06/2020 Last Documented On 0 7:27PM ; [facility] Z11.4 - Encounter for screen ing for human immunodeficiency virus [HIV] [facility]-New with Karlanaveed Floresen COTTON DISPATCHER 05/06/2020 Last Documented On 0 7:27PM ; [facility] Diabetes Risk Test Score was three score 03/31/2020 Medical Established Patient with Karla Floresen COTTON DISPATCHER 03/31/2020 Last Documented On 0 3:22PM ; [facility] Overweight Medical Established Patient with Karla Amber COTTON DISPATCHER 03/31/2020 Last Documented On 0 3:22PM ; [facility] Z68.25 - Body mass index [BM I] 25.0-25.9, adult Medical Established Patient with Karlanaveed Floresen COTTON DISPATCHER 03/31/2020 Last Documented On 0 3:22PM ; [facility] Encounter for Immunization Nurse Visit with Gary Clark COTTON DISPATCHER 03/14/2020 Last Documented On 0 5:11PM ; [facility] Body mass index Medical Established Patient with Karla Floresen COTTON DISPATCHER 02/26/2020 Last Documented On 0 1:18PM ; [facility] Overweight Medical Established Patient with Karla Amber COTTON DISPATCHER 02/26/2020 Last Documented On 0 1:18PM ; [facility] Overweight Medical Established Patient with Karla Amber COTTON DISPATCHER 07/23/2019 Last Documented On 0 2:33PM ; [facility] Z68.27 - Body mass index (BM I) 27.0-27.9, adult Medical Established Patient with Karlanaveed Floresen COTTON DISPATCHER 07/23/2019 Last Documented On 0 2:33PM ; [facility] Occasional asthma CPS- Asthma Clinic- F/U with A imnaveed Floresen COTTON DISPATCHER 06/05/2019 Last Documented On 0 7:04PM ; [facility] Overweight CPS- [facility] Clinic- F/U with Aim naveed Floresen COTTON DISPATCHER 06/05/2019 Last Documented On 0 7:04PM ; [facility] Z68.27 - Body mass index (BM I) 27.0-27.9 adult CPS- Asthma Clinic- F/U with Karlanaveed Floresen COTTON DISPATCHER 06/05/2019 Last Documented On 0 7:04PM ; [facility] Occasional asthma CPS Med Review with Karla Sandra en COTTON DISPATCHER 04/23/2019 Last Documented On 9 4:01PM ; [facility] Overweight CPS Med Review with Karla Amber COTTON DISPATCHER 04/23/2019 Last Documented On 9 4:01PM ; [facility] Z68.27 - Body mass index (BM I) 27.0-27.9 adult CPS Med Review with Karla Amber COTTON DISPATCHER 04/23/2019 Last Documented On 9 4:01PM ; [facility] Acute pharyngitis Medical Established Patient wi th Brandy Kelley COTTON DISPATCHER 04/15/2019 Last Documented On 9 12:31PM ; [facility] Asthmatic bronchitis with ac wales exacerbation Medical Established Patient with Brandy Warren COTTON DISPATCHER 04/15/2019 Last Documented On 9 12:31PM ; [facility] Fagerstrom Score was two Medical Established Pat ient with Brandy Warren COTTON DISPATCHER 04/15/2019 Last Documented On 9 12:31PM ; [facility] PHQ-9: total score was three 04/15/2019 Medical Established Patient with Brandy Kelley COTTON DISPATCHER 04/15/2019 Last Documented On 9 12:31PM ; [facility] Body mass index Medical Established Patient with Karlanaveed Floresen COTTON DISPATCHER 03/05/2019 Last Documented On 9 10:27AM ; [facility] Diabetes Risk Test Score was three score Medical Established Patient with Karla Amber COTTON DISPATCHER 03/05/2019 Last Documented On 9 10:27AM ; [facility] Overweight Medical Established Patient with Karla Amber COTTON DISPATCHER 03/05/2019 Last Documented On 9 10:27AM ; [facility] Z68.28 - Body mass index (BM I) 28.0-28.9, adult Medical Established Patient with Karla Amber COTTON DISPATCHER 12/22/2018 Last Documented On 9 10:32AM ; [facility] Assess routine adult history and physical (18 - 64 yrs) Medical Established Patient with Karla Amber COTTON DISPATCHER 11/06/2018 Last Documented On 9 2:26PM ; [facility] Overweight Medical Established Patient with Karla Amber COTTON DISPATCHER 11/06/2018 Last Documented On 9 2:26PM ; [facility] Z68.28 - Body mass index (BM I) 28.0-28.9, adult Medical Established Patient with Karla Amber COTTON DISPATCHER 11/06/2018 Last Documented On 9 2:26PM ; [facility] Assess dysphagia Medical Established Patient wit h Karla Amber COTTON DISPATCHER 09/11/2018 Last Documented On 9 10:53AM ; [facility] Assess routine adult history and physical (18 - 64 yrs) Medical Established Patient with Karla Amber COTTON DISPATCHER 09/11/2018 Last Documented On 9 10:53AM ; [facility] Assess primary insomnia with sleep apnea Medical Established Patient with Karla Amber COTTON DISPATCHER 09/04/2018 Last Documented On 9 2:23PM ; [facility] Assess routine adult history and physical (18 - 64 yrs) Medical Established Patient with Karla Amber COTTON DISPATCHER 09/04/2018 Last Documented On 9 2:23PM ; [facility] Overweight Medical Established Patient with Karla Clark COTTON DISPATCHER 09/04/2018 Last Documented On 9 2:23PM ; [facility] Z68.29 - Body mass index (BM I) 29.0-29.9, adult Medical Established Patient with Karla Clark COTTON DISPATCHER 09/04/2018 Last Documented On 9 2:23PM ; [facility] Assess vaginal candidiasis Medical Estab lished Patient with Karla Clark COTTON DISPATCHER 07/31/2018 Last Documented On 9 2:12PM ; [facility] Work Phone: Evaluation note* Diagnosis Onset Date Resolution Status Abdominal pain acute Flank pain acute Hypertension acute Prolonged Q-T interval on ECG acute Schizoaffective disorder acu [facility] Work Phone: Evaluation note Includes: Assessments for all patient encounters Findings Encounter Date [R30.0 - Dysuria] Dysuria Chart Update with Gary Clark COTTON DISPATCHER 03/21/2023 Last Documented On 3 11:27AM ; [facility] [Z12.39 - Encounter for othe r screening for malignant neoplasm of breast] visit for: screening for malignant breast neoplasm Medical Established Patient with Aaron Whitaker COTTON DISPATCHER 02/28/2023 Last Documented On 3 9:51AM ; [facility] [Z68.24 - Body mass index [B AR] 24.0-24.9, adult] assessment of body mass index Medical Established Patient with Aaron Campbellix COTTON DISPATCHER 02/28/2023 Last Documented On 3 9:51AM ; [facility] Assessment of tobacco use Medical Establ ished Patient with Lina Penix COTTON DISPATCHER 02/28/2023 Last Documented On 3 9:51AM ; [facility] Chronic obstructive pulmonary disease Me dical Established Patient with Lina Penix COTTON DISPATCHER 02/28/2023 Last Documented On 3 9:51AM ; [facility] [J20.9 - Acute bronchitis, unspecified] acute bronchitis Medical Established Patient with Karla Clark COTTON DISPATCHER 11/19/2022 Last Documented On 3 10:15AM ; [facility] [M79.621 - Pain in right upp er arm] pain in upper arm Medical Established Patient with Kalra Clark COTTON DISPATCHER 11/19/2022 Last Documented On 3 10:15AM ; [facility] [Z68.23 - Body mass index [B AR] 23.0-23.9, adult] assessment of body mass index Medical Established Patient with Karla Clark COTTON DISPATCHER 11/19/2022 Last Documented On 3 10:15AM ; [facility] [M79.601 - Pain in right arm ] pain in right arm Medical Established Patient with Karla Clark COTTON DISPATCHER 09/18/2022 Last Documented On 3 2:33PM ; [facility] [Z68.24 - Body mass index [B AR] 24.0-24.9, adult] assessment of body mass index Medical Established Patient with Karla Clark COTTON DISPATCHER 09/18/2022 Last Documented On 3 2:33PM ; [facility] Assessment of tobacco use Medical Establ ished Patient with Karla Clark COTTON DISPATCHER 09/18/2022 Last Documented On 3 2:33PM ; [facility] [M25.569 - Pain in unspecifi ed knee] arthralgia of knee / patella / tibia / fibula Medical Established Patient with Karla Clark COTTON DISPATCHER 08/27/2022 Last Documented On 3 9:20AM ; [facility] [Z68.24 - Body mass index [B AR] 24.0-24.9, adult] assessment of body mass index Medical Established Patient with Karla Clark COTTON DISPATCHER 08/27/2022 Last Documented On 3 9:20AM ; [facility] Intervention and counseling on cessation of tobacco use, 3-10 minutes Discussed medication and nicotine replacement for tobacco cessation Medical Established Patient with Karla Clark COTTON DISPATCHER 08/27/2022 Last Documented On 3 9:20AM ; [facility] Nicotine dependence Medical Established Patient with Karla Clark COTTON DISPATCHER 08/27/2022 Last Documented On 3 9:20AM ; [facility] Visit for routine adult H&P without abnormal findings Medical Established Patient with Karla Clark COTTON DISPATCHER 08/27/2022 Last Documented On 3 9:20AM ; [facility] [H92.02 - Otalgia, left ear] earache Med ical Established Patient with Karla Clark COTTON DISPATCHER 06/18/2022 Last Documented On 3 12:11PM ; [facility] [M79.604 - Pain in right leg ] pain in right leg Medical Established Patient with Karlanaveed Clark COTTON DISPATCHER 06/18/2022 Last Documented On 3 12:11PM ; [facility] [Z68.24 - Body mass index [B AR] 24.0-24.9, adult] assessment of body mass index Medical Established Patient with Karla Clark COTTON DISPATCHER 06/18/2022 Last Documented On 3 12:11PM ; [facility] Assessment of tobacco use Medical Establ ished Patient with Karlanaveed Clark COTTON DISPATCHER 06/18/2022 Last Documented On 3 12:11PM ; [facility] Diabetes Risk Test Score was four score 06/18/2022 Medical Established Patient with Karla Clark COTTON DISPATCHER 06/18/2022 Last Documented On 3 12:11PM ; [facility] Schizoaffective disorder Established Patient with Yinluis Feliz LPCC-S 03/20/2022 Last Documented On 2 12:13AM ; [facility] No cough Medical Established Patient with Karla Amber COTTON DISPATCHER 12/20/2021 Last Documented On 2 3:12PM ; [facility] Visit for: screening for hum an immunodeficiency virus Medical Established Patient with Karla Amber COTTON DISPATCHER 12/20/2021 Last Documented On 2 3:12PM ; [facility] Z68.24 - Body mass index [BM I] 24.0-24.9, adult Medical Established Patient with Karla Amber COTTON DISPATCHER 12/20/2021 Last Documented On 2 3:12PM ; [facility] Bipolar disorder NOS Established Patient with Yin Feliz LPCC-S 11/03/2021 Last Documented On 2 7:00PM ; [facility] Bipolar schizoaffective disorder BH Esta blished Patient with Yinluis Feliz LPCC-S 11/03/2021 Last Documented On 2 7:00PM ; [facility] PLAN Medical Established Patient with Don Pino MD 11/03/2021 Last Documented On 2 10:40AM ; [facility] Abnormal electrocardiogram Medical Estab lished Patient with Don Pino MD 11/03/2021 Last Documented On 2 10:40AM ; [facility] Z68.24 - Body mass index [BM I] 24.0-24.9, adult Medical Established Patient with Don Pino MD 11/03/2021 Last Documented On 2 10:40AM ; [facility] Cough Medical Established Patient with Karla Amber COTTON DISPATCHER 07/28/2021 Last Documented On 2 2:01PM ; [facility] Intervention and counseling on cessation of tobacco use, 3-10 minutes Discussed medication and nicotine replacement for tobacco cessation Medical Established Patient with Karla Amber COTTON DISPATCHER 07/28/2021 Last Documented On 2 2:01PM ; [facility] Nicotine dependence Medical Established Patient with Karla Amber COTTON DISPATCHER 07/28/2021 Last Documented On 2 2:01PM ; [facility] Z68.24 - Body mass index [BM I] 24.0-24.9, adult Medical Established Patient with Karla Amber COTTON DISPATCHER 07/28/2021 Last Documented On 2 2:01PM ; [facility] Assess Colon screening Medical Established Patie nt with Karla Amber COTTON DISPATCHER 05/08/2021 Last Documented On 1 10:59AM ; [facility] Diabetes Risk Test Score was four score 05/08/2021 Medical Established Patient with Karla Amber COTTON DISPATCHER 05/08/2021 Last Documented On 1 10:59AM ; [facility] Routine adult history and ph ysical (18-64 yrs) without abnormal findings Medical Established Patient with Karla Amber COTTON DISPATCHER 05/08/2021 Last Documented On 1 10:59AM ; [facility] Z68.24 - Body mass index [BM I] 24.0-24.9, adult Medical Established Patient with Karla Amber COTTON DISPATCHER 05/08/2021 Last Documented On 1 10:59AM ; [facility] Z68.24 - Body mass index [BM I] 24.0-24.9, adult Medical Established Patient with Karla Amber COTTON DISPATCHER 06/17/2020 Last Documented On 1 10:30AM ; [facility] Overweight Medical Established Patient with Karla Amber COTTON DISPATCHER 06/06/2020 Last Documented On 1 2:06PM ; [facility] Z68.25 - Body mass index [BM I] 25.0-25.9, adult Medical Established Patient with Karla Amber COTTON DISPATCHER 06/06/2020 Last Documented On 1 2:06PM ; [facility] Antiasthmatics [facility] Asthma Clinic-New with Karla Amber COTTON DISPATCHER 05/06/2020 Last Documented On 0 7:27PM ; [facility] Assessment of tobacco use [facility] Asthma Clinic-New with Karla Amber COTTON DISPATCHER 05/06/2020 Last Documented On 0 7:27PM ; [facility] Body mass index [facility] Asthma Clinic-New with Karla Amber COTTON DISPATCHER 05/06/2020 Last Documented On 0 7:27PM ; [facility] Chronic obstructive pulmonary disease S [facility]New with Karla Amber COTTON DISPATCHER 05/06/2020 Last Documented On 0 7:27PM ; [facility] Overweight CPS [facility]-New with Karla Amber COTTON DISPATCHER 05/06/2020 Last Documented On 0 7:27PM ; [facility] Z11.4 - Encounter for screen ing for human immunodeficiency virus [HIV] CPS [facility]New with Karla Amber COTTON DISPATCHER 05/06/2020 Last Documented On 0 7:27PM ; [facility] Diabetes Risk Test Score was three score 03/31/2020 Medical Established Patient with Karla Amber COTTON DISPATCHER 03/31/2020 Last Documented On 0 3:22PM ; [facility] Overweight Medical Established Patient with Karla Clark COTTON DISPATCHER 03/31/2020 Last Documented On 0 3:22PM ; [facility] Z68.25 - Body mass index [BM I] 25.0-25.9, adult Medical Established Patient with Karla Clark COTTON DISPATCHER 03/31/2020 Last Documented On 0 3:22PM ; [facility] Encounter for Immunization Nurse Visit with Gary Clark COTTON DISPATCHER 03/14/2020 Last Documented On 0 5:11PM ; [facility] Body mass index Medical Established Patient with Karla Floresen COTTON DISPATCHER 02/26/2020 Last Documented On 0 1:18PM ; [facility] Overweight Medical Established Patient with Karla Floresen COTTON DISPATCHER 02/26/2020 Last Documented On 0 1:18PM ; [facility] Overweight Medical Established Patient with Karla Clark COTTON DISPATCHER 07/23/2019 Last Documented On 0 2:33PM ; [facility] Z68.27 - Body mass index (BM I) 27.0-27.9, adult Medical Established Patient with Karla Clark COTTON DISPATCHER 07/23/2019 Last Documented On 0 2:33PM ; [facility] Occasional asthma CPS- Asthma Clinic- F/U with A french Clark COTTON DISPATCHER 06/05/2019 Last Documented On 0 7:04PM ; [facility] Overweight CPS- Asthma Clinic- F/U with Alta Clark COTTON DISPATCHER 06/05/2019 Last Documented On 0 7:04PM ; [facility] Z68.27 - Body mass index (BM I) 27.0-27.9 adult CPS- Asthma Clinic- F/U with Karla Floresen COTTON DISPATCHER 06/05/2019 Last Documented On 0 7:04PM ; [facility] Occasional asthma CPS Med Review with Karla Flores en COTTON DISPATCHER 04/23/2019 Last Documented On 9 4:01PM ; [facility] Overweight CPS Med Review with Karla Floresen COTTON DISPATCHER 04/23/2019 Last Documented On 9 4:01PM ; [facility] Z68.27 - Body mass index (BM I) 27.0-27.9 adult CPS Med Review with Karla Amber COTTON DISPATCHER 04/23/2019 Last Documented On 9 4:01PM ; [facility] Acute pharyngitis Medical Established Patient wi th Brandy Kelley COTTON DISPATCHER 04/15/2019 Last Documented On 9 12:31PM ; [facility] Asthmatic bronchitis with ac wales exacerbation Medical Established Patient with Brandy Warren COTTON DISPATCHER 04/15/2019 Last Documented On 9 12:31PM ; [facility] Fagerstrom Score was two Medical Established Pat ient with Brandy Serranoer COTTON DISPATCHER 04/15/2019 Last Documented On 9 12:31PM ; [facility] PHQ-9: total score was three 04/15/2019 Medical Established Patient with Brandy Warren COTTON DISPATCHER 04/15/2019 Last Documented On 9 12:31PM ; [facility] Body mass index Medical Established Patient with Karlanaveed Floresen COTTON DISPATCHER 03/05/2019 Last Documented On 9 10:27AM ; [facility] Diabetes Risk Test Score was three score Medical Established Patient with Karla Amber COTTON DISPATCHER 03/05/2019 Last Documented On 9 10:27AM ; [facility] Overweight Medical Established Patient with Karla Amber COTTON DISPATCHER 03/05/2019 Last Documented On 9 10:27AM ; [facility] Z68.28 - Body mass index (BM I) 28.0-28.9, adult Medical Established Patient with Karla Amber COTTON DISPATCHER 12/22/2018 Last Documented On 9 10:32AM ; [facility] Assess routine adult history and physical (18 - 64 yrs) Medical Established Patient with Karla Amber COTTON DISPATCHER 11/06/2018 Last Documented On 9 2:26PM ; [facility] Overweight Medical Established Patient with Karla Amber COTTON DISPATCHER 11/06/2018 Last Documented On 9 2:26PM ; [facility] Z68.28 - Body mass index (BM I) 28.0-28.9, adult Medical Established Patient with Karla Amber COTTON DISPATCHER 11/06/2018 Last Documented On 9 2:26PM ; [facility] Assess dysphagia Medical Established Patient wit h Karla Clark COTTON DISPATCHER 09/11/2018 Last Documented On 9 10:53AM ; [facility] Assess routine adult history and physical (18 - 64 yrs) Medical Established Patient with Karla Amber COTTON DISPATCHER 09/11/2018 Last Documented On 9 10:53AM ; [facility] Assess primary insomnia with sleep apnea Medical Established Patient with Karla Amber COTTON DISPATCHER 09/04/2018 Last Documented On 9 2:23PM ; [facility] Assess routine adult history and physical (18 - 64 yrs) Medical Established Patient with Karla Amber COTTON DISPATCHER 09/04/2018 Last Documented On 9 2:23PM ; [facility] Overweight Medical Established Patient with Karla Amber COTTON DISPATCHER 09/04/2018 Last Documented On 9 2:23PM ; [facility] Z68.29 - Body mass index (BM I) 29.0-29.9, adult Medical Established Patient with Karla Amber COTTON DISPATCHER 09/04/2018 Last Documented On 9 2:23PM ; [facility] Assess vaginal candidiasis Medical Estab lished Patient with Karla Amber COTTON DISPATCHER 07/31/2018 Last Documented On 9 2:12PM ; [facility] Work Phone: Evaluation note* Diagnosis Onset Date Resolution Status Abdominal pain acute Flank pain acute Hypertension acute Prolonged Q-T interval on ECG acute Schizoaffective disorder acu te Abdominal pain acute MYESHA (acute kidney injury) ac wales Flank pain acute Nausea & vomiting acute Schizoaffective disorder acu te [facility] Work Phone: Evaluation note* Diagnosis Neoplasm of unspecified behavior of bone, soft tissue, and skin- Primary [facility] Diagnosis Onset Date Resolution Status Acute psychosis acute Chronic schizophrenia acute [facility] Work Phone: Evaluation note* Diagnosis Onset Date Resolution Status Acute psychosis acute Chronic schizophrenia acute Schizoaffective disorder acu [facility] Work Phone: Evaluation note* Diagnosis Nontoxic multinodular goiter- Primary Thyroid nodule Nontoxic uninodular goiter [facility] In[facility]: Assessments for all patient encounters Findings Encounter Date [R26.89 - Other abnormalitie s of gait and mobility] staggering gait Chart Update with Karla Clark CNP 11/15/2023 Last Documented On 4 12:07PM ; [facility] [F17.210 - Nicotine dependen ce, cigarettes, uncomplicated] continuous dependence on cigarette smoking Medical Established Patient with Karla Clark [facility] 10/04/2023 Last Documented On 4 6:30PM ; [facility] [Z12.11 - Encounter for scre ening for malignant neoplasm of colon] Colon screening Medical Established Patient with Karla Clark [facility] 10/04/2023 Last Documented On 4 6:30PM ; [facility] [Z68.25 - Body mass index [B AR] 25.0-25.9, adult] assessment of body mass index Medical Established Patient with Karla Clark [facility] 10/04/2023 Last Documented On 4 6:30PM ; [facility] Diabetes Risk Test Score was five score 10/04/2023 Medical Established Patient with Karla Clark [facility] 10/04/2023 Last Documented On 4 6:30PM ; [facility] Encounter for Immunization Medical Estab lished Patient with Karla Clark [facility] 10/04/2023 Last Documented On 4 6:30PM ; [facility] [D48.5 - Neoplasm of uncerta in behavior of skin] skin neoplasm of uncertain behavior Medical Established Patient with Karla Clark [facility] 05/22/2023 Last Documented On 3 1:30PM ; [facility] [Z68.24 - Body mass index [B AR] 24.0-24.9, adult] assessment of body mass index Medical Established Patient with Karla Clark [facility] 05/22/2023 Last Documented On 3 1:30PM ; [facility] Assessment of tobacco use Medical Establ ished Patient with Karla Clark [facility] 05/22/2023 Last Documented On 3 1:30PM ; [facility] [R30.0 - Dysuria] Dysuria Chart Update with Gary Clark COTTON DISPATCHER 03/21/2023 Last Documented On 3 11:27AM ; [facility] [Z12.39 - Encounter for othe r screening for malignant neoplasm of breast] visit for: screening for malignant breast neoplasm Medical Established Patient with Aaron Whitaker COTTON DISPATCHER 02/28/2023 Last Documented On 3 9:51AM ; [facility] [Z68.24 - Body mass index [B AR] 24.0-24.9, adult] assessment of body mass index Medical Established Patient with Aaron Whitaker COTTON DISPATCHER 02/28/2023 Last Documented On 3 9:51AM ; [facility] Assessment of tobacco use Medical Establ ished Patient with Aaron Whitaker COTTON DISPATCHER 02/28/2023 Last Documented On 3 9:51AM ; [facility] Chronic obstructive pulmonary disease Me dical Established Patient with Aaron Whitaker COTTON DISPATCHER 02/28/2023 Last Documented On 3 9:51AM ; [facility] [J20.9 - Acute bronchitis, unspecified] acute bronchitis Medical Established Patient with Karla Clark COTTON DISPATCHER 11/19/2022 Last Documented On 3 10:15AM ; [facility] [M79.621 - Pain in right upp er arm] pain in upper arm Medical Established Patient with Karla Clark COTTON DISPATCHER 11/19/2022 Last Documented On 3 10:15AM ; [facility] [Z68.23 - Body mass index [B AR] 23.0-23.9, adult] assessment of body mass index Medical Established Patient with Karla Clark COTTON DISPATCHER 11/19/2022 Last Documented On 3 10:15AM ; [facility] [M79.601 - Pain in right arm ] pain in right arm Medical Established Patient with Karla Clark COTTON DISPATCHER 09/18/2022 Last Documented On 3 2:33PM ; [facility] [Z68.24 - Body mass index [B AR] 24.0-24.9, adult] assessment of body mass index Medical Established Patient with Karla Clark COTTON DISPATCHER 09/18/2022 Last Documented On 3 2:33PM ; [facility] Assessment of tobacco use Medical Establ ished Patient with Karla Clark COTTON DISPATCHER 09/18/2022 Last Documented On 3 2:33PM ; [facility] [M25.569 - Pain in unspecifi ed knee] arthralgia of knee / patella / tibia / fibula Medical Established Patient with Karla Clark COTTON DISPATCHER 08/27/2022 Last Documented On 3 9:20AM ; [facility] [Z68.24 - Body mass index [B AR] 24.0-24.9, adult] assessment of body mass index Medical Established Patient with Karla Clark COTTON DISPATCHER 08/27/2022 Last Documented On 3 9:20AM ; [facility] Intervention and counseling on cessation of tobacco use, 3-10 minutes Discussed medication and nicotine replacement for tobacco cessation Medical Established Patient with Karla Clark COTTON DISPATCHER 08/27/2022 Last Documented On 3 9:20AM ; [facility] Nicotine dependence Medical Established Patient with Karla Clark COTTON DISPATCHER 08/27/2022 Last Documented On 3 9:20AM ; [facility] Visit for routine adult H&P without abnormal findings Medical Established Patient with Karla Clark COTTON DISPATCHER 08/27/2022 Last Documented On 3 9:20AM ; [facility] [H92.02 - Otalgia, left ear] earache Med ical Established Patient with Karla Clark COTTON DISPATCHER 06/18/2022 Last Documented On 3 12:11PM ; [facility] [M79.604 - Pain in right leg ] pain in right leg Medical Established Patient with Karla Clark COTTON DISPATCHER 06/18/2022 Last Documented On 3 12:11PM ; [facility] [Z68.24 - Body mass index [B AR] 24.0-24.9, adult] assessment of body mass index Medical Established Patient with Karla Clark COTTON DISPATCHER 06/18/2022 Last Documented On 3 12:11PM ; [facility] Assessment of tobacco use Medical Establ ished Patient with Karla Clark COTTON DISPATCHER 06/18/2022 Last Documented On 3 12:11PM ; [facility] Diabetes Risk Test Score was four score 06/18/2022 Medical Established Patient with Karlanaveed Clark COTTON DISPATCHER 06/18/2022 Last Documented On 3 12:11PM ; [facility] Schizoaffective disorder Established Patient with Yin Feliz LPCC-S 03/20/2022 Last Documented On 2 12:13AM ; [facility] No cough Medical Established Patient with Karla Amber COTTON DISPATCHER 12/20/2021 Last Documented On 2 3:12PM ; [facility] Visit for: screening for hum an immunodeficiency virus Medical Established Patient with Karla Clark COTTON DISPATCHER 12/20/2021 Last Documented On 2 3:12PM ; [facility] Z68.24 - Body mass index [BM I] 24.0-24.9, adult Medical Established Patient with Karla Clark COTTON DISPATCHER 12/20/2021 Last Documented On 2 3:12PM ; [facility] Bipolar disorder NOS BH Established Patient with Yin Feliz LPCC-S 11/03/2021 Last Documented On 2 7:00PM ; [facility] Bipolar schizoaffective disorder BH Esta blished Patient with Yin Feliz LPCC-S 11/03/2021 Last Documented On 2 7:00PM ; [facility] PLAN Medical Established Patient with Don Pino MD 11/03/2021 Last Documented On 2 10:40AM ; [facility] Abnormal electrocardiogram Medical Estab lished Patient with Don Pino MD 11/03/2021 Last Documented On 2 10:40AM ; [facility] Z68.24 - Body mass index [BM I] 24.0-24.9, adult Medical Established Patient with Don Pino MD 11/03/2021 Last Documented On 2 10:40AM ; [facility] Cough Medical Established Patient with Karla Clark COTTON DISPATCHER 07/28/2021 Last Documented On 2 2:01PM ; [facility] Intervention and counseling on cessation of tobacco use, 3-10 minutes Discussed medication and nicotine replacement for tobacco cessation Medical Established Patient with Karla Clark COTTON DISPATCHER 07/28/2021 Last Documented On 2 2:01PM ; [facility] Nicotine dependence Medical Established Patient with Karla Amber COTTON DISPATCHER 07/28/2021 Last Documented On 2 2:01PM ; [facility] Z68.24 - Body mass index [BM I] 24.0-24.9, adult Medical Established Patient with Karla Amber COTTON DISPATCHER 07/28/2021 Last Documented On 2 2:01PM ; [facility] Assess Colon screening Medical Established Patie nt with Karla Amber COTTON DISPATCHER 05/08/2021 Last Documented On 1 10:59AM ; [facility] Diabetes Risk Test Score was four score 05/08/2021 Medical Established Patient with Karla Clark COTTON DISPATCHER 05/08/2021 Last Documented On 1 10:59AM ; [facility] Routine adult history and ph ysical (18-64 yrs) without abnormal findings Medical Established Patient with Karla Amber COTTON DISPATCHER 05/08/2021 Last Documented On 1 10:59AM ; [facility] Z68.24 - Body mass index [BM I] 24.0-24.9, adult Medical Established Patient with Karla Amber COTTON DISPATCHER 05/08/2021 Last Documented On 1 10:59AM ; [facility] Z68.24 - Body mass index [BM I] 24.0-24.9, adult Medical Established Patient with Karla Amber COTTON DISPATCHER 06/17/2020 Last Documented On 1 10:30AM ; [facility] Overweight Medical Established Patient with Karla Amber COTTON DISPATCHER 06/06/2020 Last Documented On 1 2:06PM ; [facility] Z68.25 - Body mass index [BM I] 25.0-25.9, adult Medical Established Patient with Karla Amber COTTON DISPATCHER 06/06/2020 Last Documented On 1 2:06PM ; [facility] Antiasthmatics [facility] Asthma Clinic-New with Karlanaveed Floresen COTTON DISPATCHER 05/06/2020 Last Documented On 0 7:27PM ; [facility] Assessment of tobacco use CPS [facility]-New with Karla Amber COTTON DISPATCHER 05/06/2020 Last Documented On 0 7:27PM ; [facility] Body mass index [facility] Asthma Clinic-New with Karla Amber COTTON DISPATCHER 05/06/2020 Last Documented On 0 7:27PM ; [facility] Chronic obstructive pulmonary disease CP S [facility] Clinic-New with Karla Amber COTTON DISPATCHER 05/06/2020 Last Documented On 0 7:27PM ; [facility] Overweight [facility] Asthma Clinic-New with Karla Amber COTTON DISPATCHER 05/06/2020 Last Documented On 0 7:27PM ; [facility] Z11.4 - Encounter for screen ing for human immunodeficiency virus [HIV] [facility] Asthma Clinic-New with Karlanaveed Floresen COTTON DISPATCHER 05/06/2020 Last Documented On 0 7:27PM ; [facility] Diabetes Risk Test Score was three score 03/31/2020 Medical Established Patient with Karlanaveed Floresen COTTON DISPATCHER 03/31/2020 Last Documented On 0 3:22PM ; [facility] Overweight Medical Established Patient with Karlanaveed Floresen COTTON DISPATCHER 03/31/2020 Last Documented On 0 3:22PM ; [facility] Z68.25 - Body mass index [BM I] 25.0-25.9, adult Medical Established Patient with Karla Floresen COTTON DISPATCHER 03/31/2020 Last Documented On 0 3:22PM ; [facility] Encounter for Immunization Nurse Visit with Gary Clark COTTON DISPATCHER 03/14/2020 Last Documented On 0 5:11PM ; [facility] Body mass index Medical Established Patient with Karla Amber COTTON DISPATCHER 02/26/2020 Last Documented On 0 1:18PM ; [facility] Overweight Medical Established Patient with Karla Amber COTTON DISPATCHER 02/26/2020 Last Documented On 0 1:18PM ; [facility] Overweight Medical Established Patient with Karla Amber COTTON DISPATCHER 07/23/2019 Last Documented On 0 2:33PM ; [facility] Z68.27 - Body mass index (BM I) 27.0-27.9, adult Medical Established Patient with Karla Clark COTTON DISPATCHER 07/23/2019 Last Documented On 0 2:33PM ; [facility] Occasional asthma CPS- Asthma Clinic- F/U with A french Clark COTTON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 patient's verbal consent was provided. Documented By: Joe Davis MD 4 [id number] Signed By: <Electronically signed by Joe Davis MD> 08/17/23 0638 [facility] Work Phone: Progress note Author Joe rodriguez [facility] August 18, 2023 9:29am Note Date/Time August 18, 2023 9:2 9am [facility] [address] [place] [address] Psychiatry Progress Note Signed Patient: Gail Almeida MR#: [id number] : 1955 Acct:[id number] Age/Sex: 67 / F Adm Date: 4 Loc: 1S Room: [address] [place] [address] Type : ADM IN Attending Dr: Joe Davis MD Copies to: ~ Date of Service: 08/18/2023 Subjective Subjective Narrative: Ms. Almeida said she is feeling better. She denied any racing thoughts or AVH onexam. She still showed some distractibility at times but denies any SI/HI. Staff described her as cooperative. Most recent lithium level 0.5. She continues to be compliant with antibiotic treatment. Mental Status Exam: Appearance: Grossly normal, well-groomed Mental Status: Grossly normal Mood: Anxious Affect: Mood congruent Speech and Movement: Speech clear. Speech and movement normal Attitude: Cooperative Thought Process: Linear Thought Content: Denies SI, HI, hallucination Insight: Improving Judgment: Improving Exam Physical Exam Vital Signs: Temp Pulse Resp BP Pulse Ox O2 Del Method 97.3 F L 58 L 16 117/84 98 Room Air 08/18/23 07:30 08/18/23 07:30 08/18/23 07:30 08/18/23 07:30 08/18/23 07:30 08/18/23 07:30 Assessment/Plan Assessment/Plan (1) Schizoaffective disorder: Plan Patient denied any hallucinations or manic symptoms. No SI/HI. Cogentin 0.5 mg PO BID Clonidine 0.1 mg PO Daily Zyprexa 5 mg PO Daily and 12.5 mg PO QHS Seroquel 12.5 mg PO BID and 400 mg PO HS [place] 300 mg PO BID. Obtain lithium level. Cipro 500mg PO BID Synthroid 112 mcg PO Daily Monitor for signs of hallucinations. Recommend attending groups and psychoeducation for building coping skills. Typical short- and long-term side effects of the proposed medication regimen, including contraindications and clinically significant interactions, were discussed with the patient. Side effects include but not limited to sedation, overdose, hypo or hypertension, rash, movement disorders (TD, EPS), weight gain, and appetite changes and advised the patient not to drive or drink while taking these meds. Patient should reach out to medical provider if any of these side effects occur. We also discussed risk of overdose with this current med regimen. Patient voiced understanding of benefits and agreement with treatment plan. Targeted symptoms and signs, possible therapeutic benefit, side effect and riskswere discussed. No abnormal movements noted on exam. AIMS is Zero. Involve friends/family members if applicable to coordinate care and ensure appropriate outpatient appointments are scheduled prior to discharge. I have reviewed evaluations by other providers (ER notes, nurses and staff) Prognosis: Factors to be considered are the chronicity and severity of the symptoms and signs, associated comorbidity, and differential diagnosis-motivation to get in treatment, response to treatment, adherence to treatment recommendations, and using skills. The patient's verbal consent was provided. Documented By: Joe Davis MD 4 28 Signed By: <Electronically signed by Joe Davis MD> 08/18/23 0929 [facility] Work Phone: Progress note Author Reynaldo Kraft [facility] August 19, 2023 12:04pm Note Date/Time August 19, 2023 12: 04pm [facility] [address] [place] [address] Psychiatry Progress Note Signed Patient: Gail Almeida MR#: [id number] : 1955 Acct:[id number] Age/Sex: 67 / F Adm Date: 4 Loc: Room: [address] [place] [address] Type : ADM IN Attending Dr: Joe Davis MD Copies to: ~ Date of Service: 08/19/2023 Subjective Subjective Narrative: Ms. Almeida reported that she is doing good. She feels like her anxiety is better. She denies any current suicidal thoughts at this time. Mental Status Exam: Appearance: Grossly normal, well-groomed Mental Status: Grossly normal Mood: Anxious Affect: Mood congruent Speech and Movement: Speech clear. Speech and movement normal Attitude: Cooperative Thought Process: Linear Thought Content: Denies SI, HI, hallucination Insight: Improving Judgment: Improving Exam Physical Exam Vital Signs: Temp Pulse Resp BP Pulse Ox O2 Del Method 98.6 F 65 18 145/84 H 100 Room Air 08/19/23 07:30 08/19/23 07:30 08/19/23 07:30 08/19/23 07:30 08/19/23 07:30 08/19/23 07:30 Assessment/Plan Assessment/Plan (1) Schizoaffective disorder: Plan Doing better at this time. Plan for discharge tomorrow Cogentin 0.5 mg PO BID, Clonidine 0.1 mg PO Daily Zyprexa 5 mg PO Daily and 12.5 mg PO QHS, Seroquel 12.5 mg PO BID and 400 mg PO HS [place] 300 mg PO BID. Cipro 500mg PO BID Continue to monitor mental status Encourage group participation and medication compliance Risk benefits alternatives explained Documented By: Reynaldo Kraft MD 08/19/23 1203 Signed By: <Electronically signed by Reynaldo Kraft MD> 08/19/23 1204 [facility] Work Phone: Progress note* Progress note Date Encounter Last Documented by 11/15/2023 Chart Update Last documented on 11/15/2023; 12:07 PM, Karla Clark COTTON DISPATCHER; [facility] Active Problems & Conditions - J45.909 - Asthma Occasional - Asthma - F31.9 - Bipolar Disorder Nos - Bipolar disorder, unspecified - J44.9 - Chronic Obstructive Pulmonary Disease - F32.9 - Major depressive disorder, single episode, unspecified - Depression - Schizoaffective Disorder Current Medication - Acetaminophen ER 650 MG [...] 0 days, 0 refills - Calcium 600+D Plus Minerals 600-400 MG-UNIT Oral Tablet take 1 tablet by mouth twice daily, 30 days, 11 refills - cloNIDine HCl 0.1 MG Oral Tablet give one by mouth once daily, 0 days, 0 refills - Colace 100 MG Oral Capsule take 1 capsule by mouth once daily at bedtime, 30 days, 11 refills - Famotidine 20 MG Oral Tablet TAKE 1 TABLET BY MOUTH TWICE A DAY, 30 days, 11 refills - Fluticasone Propionate 50 MCG/ACT Nasal Suspension INHALE 1 SPRAY INTO EACH NOSTRIL TWICE A DAY, 30 days, 11 refills - Folic Acid 800 MCG Oral Tablet TAKE 1 TABLET BY MOUTH ONCE EVERY DAY, 30 days, 11 refills - Levothyroxine Sodium 112 MCG Oral Tablet once daily, 0 days, 0 refills - [place] Carbonate 300 MG Oral Tablet one tablet by mouth two times daily, 30 days, 0 refills - Loratadine 10 MG Oral Tablet take 1 tablet by mouth once daily, 30 days, 11 refills - Mobic 15 MG Oral Tablet take 1 tablet by mouth once daily (no other nsaids), 30 days, 11 refills - OLANZapine 15 MG Oral Tablet once daily Kentrell Hurley, 30 days, 0 refills - OLANZapine 5 MG Oral Tablet take one tablet by mouth twice daily as needed for agitation/anxietyper Dr. Munoz, 15 days, 0 refills - Polyethylene Glycol 3350 17 GM/SCOOP Oral Powder 17GM= 1CAP DISSOLVE IN 4-8 OZ LIQUID BEFORE ADMINISTRATION BY MOUTH EVERY DAY, 30 days, 11 refills - QC Vitamin B12 500 MCG Oral Tablet TAKE 1 TABLET BY MOUTH ONCE EVERY DAY ALONG WITH FOLIC ACID, 30 days, 11 refills - QUEtiapine Fumarate 25 MG Oral Tablet take 1/2 tablet by mouth 2 times daily, 30 days, 0 refills - QUEtiapine Fumarate 400 MG Oral Tablet take one tablet by mouth daily at bedtime, 30 days, 0 refills - RisperDAL Consta 37.5 MG Intramuscular Suspension Reconstituted ER inject 2 milliliters by IM route every [address] Munoz, 14 days, 0 refills - Topiramate 25 MG Oral Tablet take 1 tablet by mouth once daily at bedtime, 30 days, 11 refills - Vitamin B-12 500 MCG Oral Tablet one tablet by mouth once daily, 30 days, 0 refills Past Medical/Surgical History Reported: Patient gave verbal consent for telehealth. Medical: No previous hospitalizations. Partners sexually transmitted infection status not known. Immunization History: Recent immunization for flu. 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 Not planning a in the next year. Diagnoses: Abnormal electrocardiogram. Asthma. Bipolar disorder NOS Depression Heart Attack 03/2021 [facility]. Surgical: - General surgery right shoulder [...] nuclear family Maternal: Breast neoplasm Assessment - R26.89 - Other abnormalities of gait and mobility Plan StartCited- Other abnormalities of gait and mobility Referrals: Physical Therapy Instructions: Please make a referral to: EndCited Advance Directives - Advance Care Planning Care Team - Karla Clark CNP [facility] (narrative)No Reason for Referral RecordedHealth [facility] Work Phone: Review of systems Narrative - Reported Review of Systems not supported for this document type No Review of Systems [facility] Work Phone: History of Past Illness [...] 28.0-28.9, adult Medical Established Patient with Karla Flroesen [facility] 12/22/2018 Assess routine adult history and physical (18 - 64 yrs) Medical Established Patient with Karla Amber [employer] DISPATCH[employer] 11/06/2018 Overweight Medical Established Patient with Karla Amber [facility] 11/06/2018 Z68.28 - Body mass index (BM I) 28.0-28.9, adult Medical Established Patient with Karla Amber [employer] 11/06/2018 Assess dysphagia Medical Established Patient with Karla Amber [employer] 09/11/2018 Assess routine adult history and physical (18 - 64 yrs) Medical Established Patient with Karla Amber [employer] DISPATCHER 09/11/2018 Assess primary insomnia with sleep apnea Medical Established Patient with Karla Amber [employer] DISPATCHER 09/04/2018 Assess routine adult history and physical (18 - 64 yrs) Medical Established Patient with Karla Amber [employer] DISPATCHER 09/04/2018 Overweight Medical Established Patient with Karla Clark [facility] 09/04/2018 Z68.29 - Body mass index (BM I) 29.0-29.9, adult Medical Established Patient with Karla Clark [facility] 09/04/2018 Assess vaginal candidiasis Medical Estab lished Patient with Karla Clark [facility] 07/31/2018 Diagnosis Right foot pain Pain in limb Diagnosis Abnormal mammogram of left breast Findings Encounter Date Occasional asthma CPS Med Review with Karla dinh [facility] 04/23/2019 Overweight CPS Med Review with Karla Clark [facility] 04/23/2019 Z68.27 - Body mass index (BM I) 27.0-27.9 adult CPS Med Review with Karla Clark [facility] 04/23/2019 Acute pharyngitis Medical Established Patient with Brandy Kelley [facility] 04/15/2019 Asthmatic bronchitis with ac wales exacerbation Medical Established Patient with Brandy Kelley [facility] 04/15/2019 Fagerstrom Score was two Medical Establi shed Patient with Brandy Kelley [facility] 04/15/2019 PHQ-9: total score was three 04/15/2019 [facility] Body mass index Medical Established Patient with Karla Clark [facility] 03/05/2019 Diabetes Risk Test Score was three score Medical Established Patient with Karla Clark [facility] 03/05/2019 Overweight Medical Established Patient with Karla Clark [facility] 03/05/2019 Z68.28 - Body mass index (BM I) 28.0-28.9, adult Medical Established Patient with Karla Clark [facility] 12/22/2018 Assess routine adult history and physical (18 - 64 yrs) Medical Established Patient with Karla Clark [facility] 11/06/2018 Overweight Medical Established Patient with Karla Clark [facility] 11/06/2018 Z68.28 - Body mass index (BM I) 28.0-28.9, adult Medical Established Patient with Karla Clark [facility] 11/06/2018 Assess dysphagia Medical Established Patient with Karla Clark [facility] 09/11/2018 Assess routine adult history and physical (18 - 64 yrs) Medical Established Patient with Karla Clark [facility] 09/11/2018 Assess primary insomnia with sleep apnea Medical Established Patient with Karla Clark [facility] 09/04/2018 Assess routine adult history and physical (18 - 64 yrs) Medical Established Patient with Karla Clark [facility] 09/04/2018 Overweight Medical Established Patient with Karla Floresen [employer] 09/04/2018 Z68.29 - Body mass index (BM I) 29.0-29.9, adult Medical Established Patient with Karla Floresen [employer]PATCH[employer] 09/04/2018 Assess vaginal candidiasis Medical Estab lished Patient with Karla Floresen [employer]PATCH[employer] 07/31/2018 Findings Encounter Date Occasional asthma CPS- Asthma Clinic- F/U with Karla Amber [employer]TON DISPATCHER 06/05/2019 Overweight CPS- Asthma Clinic- F/U with Karla Amber [facility] 06/05/2019 Z68.27 - Body mass index (BM I) 27.0-27.9 adult CPS- Asthma Clinic- F/U with Karla Amber [facility] 06/05/2019 Occasional asthma CPS Med Review with Karla Sandra dinh [facility] 04/23/2019 Overweight CPS Med Review with Karla Amber [facility] 04/23/2019 Z68.27 - Body mass index (BM I) 27.0-27.9 adult CPS Med Review with Karla Amber [facility] 04/23/2019 Acute pharyngitis Medical Established Patient with Brandy Warren [facility] CHILDREN 04/15/2019 Asthmatic bronchitis with ac wales exacerbation Medical Established Patient with Brandy Warren [facility] 04/15/2019 Fagerstrom Score was two Medical Establi shed Patient with Brandy Warren [facility] 04/15/2019 PHQ-9: total score was three 04/15/2019 Medical Established Patient with Brandy Warren [facility] 04/15/2019 Body mass index Medical Established Patient with Karla Clark [facility] 03/05/2019 Diabetes Risk Test Score was three score Medical Established Patient with Karla Floresen [facility] 03/05/2019 Overweight Medical Established Patient with Karla Floresen [facility] 03/05/2019 Z68.28 - Body mass index (BM I) 28.0-28.9, adult Medical Established Patient with Karla Floresen [facility] 12/22/2018 Assess routine adult history and physical (18 - 64 yrs) Medical Established Patient with Karla Floresen [employer] [employer] 11/06/2018 Overweight Medical Established Patient with Karla Amber [employer] 11/06/2018 Z68.28 - Body mass index (BM I) 28.0-28.9, adult Medical Established Patient with Karla Floresen [facility] 11/06/2018 Assess dysphagia Medical Established Patient with Karla Amber [facility] 09/11/2018 Assess routine adult history and physical (18 - 64 yrs) Medical Established Patient with Karla Floresen [employer] 09/11/2018 Assess primary insomnia with sleep apnea Medical Established Patient with Karla Floresen [employer] 09/04/2018 Assess routine adult history and physical (18 - 64 yrs) Medical Established Patient with Karla Amber [employer] 09/04/2018 Overweight Medical Established Patient with Karlanaveed Floresen [employer] 09/04/2018 Z68.29 - Body mass index (BM I) 29.0-29.9, adult Medical Established Patient with Karla Amber [employer] 09/04/2018 Assess vaginal candidiasis Medical Estab lished Patient with Karlanaveed Floresen [employer] 07/31/2018 Findings Encounter Date Overweight Medical Established Patient with Karla Floresen [employer] 07/23/2019 Z68.27 - Body mass index (BM I) 27.0-27.9, adult Medical Established Patient with Karla Amber [employer] 07/23/2019 Occasional asthma CPS- Asthma Clinic- F/U with Karlaanveed Clark [employer] 06/05/2019 Overweight CPS- Asthma Clinic- F/U with Karlanaveed Clark [facility] 06/05/2019 Z68.27 - Body mass index (BM I) 27.0-27.9 adult CPS- Asthma Clinic- F/U with Karla Amber [facility] 06/05/2019 Occasional asthma CPS Med Review with Karla Sandra dinh [facility] 04/23/2019 Overweight CPS Med Review with Karla Amber [facility] 04/23/2019 Z68.27 - Body mass index (BM I) 27.0-27.9 adult CPS Med Review with Karla Amber [facility] 04/23/2019 Acute pharyngitis Medical Established Patient with Brandytonja Kelley [employer] 04/15/2019 Asthmatic bronchitis with ac wales exacerbation Medical Established Patient with Brandytonja Kelley [employer] 04/15/2019 Fagerstrom Score was two Medical Establi shed Patient with Brandy Warren [facility] 04/15/2019 PHQ-9: total score was three 04/15/2019 Medical Established Patient with Brandy Warren [employer] 04/15/2019 Body mass index Medical Established Patient with Karla Amber [employer] 03/05/2019 Diabetes Risk Test Score was three score Medical Established Patient with Karla Amber [employer] 03/05/2019 Overweight Medical Established Patient with Karla Amber [facility] 03/05/2019 Z68.28 - Body mass index (BM I) 28.0-28.9, adult Medical Established Patient with Karlanaveed Clark [facility] 12/22/2018 Assess routine adult history and physical (18 - 64 yrs) Medical Established Patient with Karla Amber [employer] 11/06/2018 Overweight Medical Established Patient with Karla Amber [employer] 11/06/2018 Z68.28 - Body mass index (BM I) 28.0-28.9, adult Medical Established Patient with Karla Amber [employer] 11/06/2018 Assess dysphagia Medical Established Patient with Karla Amber [employer] 09/11/2018 Assess routine adult history and physical (18 - 64 yrs) Medical Established Patient with Karla Amber [employer] 09/11/2018 Assess primary insomnia with sleep apnea Medical Established Patient with Karla Amber [employer] 09/04/2018 Assess routine adult history and physical (18 - 64 yrs) Medical Established Patient with Karla Amber [employer] 09/04/2018 Overweight Medical Established Patient with Karla Ambre [employer] 09/04/2018 Z68.29 - Body mass index (BM I) 29.0-29.9, adult Medical Established Patient with Karla Amber [employer] 09/04/2018 Assess vaginal candidiasis Medical Estab lished Patient with Karlanaveed Floresen [employer] 07/31/2018 Findings Encounter Date Body mass index Medical Established Patient with Karlanaveed Floresen [employer] 02/26/2020 Overweight Medical Established Patient with Karla Amber [facility] 02/26/2020 Overweight Medical Established Patient with Karla Amber [employer] 07/23/2019 Z68.27 - Body mass index (BM I) 27.0-27.9, adult Medical Established Patient with Karla Amber [employer] 07/23/2019 Occasional asthma CPS- Asthma Clinic- F/U with Karlanaveed Clark [employer] 06/05/2019 Overweight CPS- Asthma Clinic- F/U with Karlanaveed Clark [facility] 06/05/2019 Z68.27 - Body mass index (BM I) 27.0-27.9 adult CPS- Asthma Clinic- F/U with Karlanaveed Clark [employer] 06/05/2019 Occasional asthma CPS Med Review with Karlanaveed dinh [employer] 04/23/2019 Overweight CPS Med Review with Karlanaveed Clark [facility] 04/23/2019 Z68.27 - Body mass index (BM I) 27.0-27.9 adult CPS Med Review with Karlanaveed Clark [employer] 04/23/2019 Acute pharyngitis Medical Established Patient with Brandy Kelley [employer] 04/15/2019 Asthmatic bronchitis with ac wales exacerbation Medical Established Patient with Brandy Kelley [employer] 04/15/2019 Fagerstrom Score was two Medical Establi shed Patient with Brandy Kelley [employer] 04/15/2019 PHQ-9: total score was three 04/15/2019 Medical Established Patient with Brandy Serranoer [employer] 04/15/2019 Body mass index Medical Established Patient with Karla Clark [employer] 03/05/2019 Diabetes Risk Test Score was three score Medical Established Patient with Karla Clark [employer] 03/05/2019 Overweight Medical Established Patient with Karla Amber [employer] 03/05/2019 Z68.28 - Body mass index (BM I) 28.0-28.9, adult Medical Established Patient with Karlanaveed Clark [employer] 12/22/2018 Assess routine adult history and physical (18 - 64 yrs) Medical Established Patient with Karlanaveed Clark [employer] 11/06/2018 Overweight Medical Established Patient with Karla Amber [employer] 11/06/2018 Z68.28 - Body mass index (BM I) 28.0-28.9, adult Medical Established Patient with Karlanaveed Clark [employer] 11/06/2018 Assess dysphagia Medical Established Patient with Karlanaveed Clark [employer] 09/11/2018 Assess routine adult history and physical (18 - 64 yrs) Medical Established Patient with Karla Amber [employer] 09/11/2018 Assess primary insomnia with sleep apnea Medical Established Patient with Karlanaveed Clark [employer] 09/04/2018 Assess routine adult history and physical (18 - 64 yrs) Medical Established Patient with Karla Amber [employer] 09/04/2018 Overweight Medical Established Patient with Karla Amber [employer] 09/04/2018 Z68.29 - Body mass index (BM I) 29.0-29.9, adult Medical Established Patient with Karla Clark [employer] 09/04/2018 Assess vaginal candidiasis Medical Estab lished Patient with Karlanaveed Clark [employer] 07/31/2018 Findings Encounter Date Encounter for Immunization Nurse Visit with GaryNicolasa [employer] 03/14/2020 Body mass index Medical Established Patient with Karla Clark [employer] 02/26/2020 Overweight Medical Established Patient with Karlanaveed Floresen [employer] 02/26/2020 Overweight Medical Established Patient with Karla Amber [employer] 07/23/2019 Z68.27 - Body mass index (BM I) 27.0-27.9, adult Medical Established Patient with Karla Amber [employer] 07/23/2019 Occasional asthma CPS- Asthma Clinic- F/U with Karlanaveed Clark [facility] 06/05/2019 Overweight CPS- Asthma Clinic- F/U with Karla Clark [facility] 06/05/2019 Z68.27 - Body mass index (BM I) 27.0-27.9 adult CPS- Asthma Clinic- F/U with Karla Amber [facility] 06/05/2019 Occasional asthma CPS Med Review with Karla dinh [facility] 04/23/2019 Overweight CPS Med Review with Karla Clark [facility] 04/23/2019 Z68.27 - Body mass index (BM I) 27.0-27.9 adult CPS Med Review with Karla Clark [facility] 04/23/2019 Acute pharyngitis Medical Established Patient with Brandy Kelley [facility] 04/15/2019 Asthmatic bronchitis with ac wales exacerbation Medical Established Patient with Brandy Kelley [facility] 04/15/2019 Fagerstrom Score was two Medical Establi shed Patient with Brandy Kelley [facility] 04/15/2019 PHQ-9: total score was three 04/15/2019 [facility] Body mass index Medical Established Patient with Karla Clark [facility] 03/05/2019 Diabetes Risk Test Score was three score Medical Established Patient with Karla Clark [facility] 03/05/2019 Overweight Medical Established Patient with Karla Clark [facility] 03/05/2019 Z68.28 - Body mass index (BM I) 28.0-28.9, adult Medical Established Patient with Karla Clark [facility] 12/22/2018 Assess routine adult history and physical (18 - 64 yrs) Medical Established Patient with Karla Clark [facility] 11/06/2018 Overweight Medical Established Patient with Karla Clark [facility] 11/06/2018 Z68.28 - Body mass index (BM I) 28.0-28.9, adult Medical Established Patient with Karla Clark [facility] 11/06/2018 Assess dysphagia Medical Established Patient with Karla Clark [facility] 09/11/2018 Assess routine adult history and physical (18 - 64 yrs) Medical Established Patient with Karla Clark [facility] 09/11/2018 Assess primary insomnia with sleep apnea Medical Established Patient with Karla Clark [facility] 09/04/2018 Assess routine adult history and physical (18 - 64 yrs) Medical Established Patient with Karla Clark [facility] 09/04/2018 Overweight Medical Established Patient with Karla Clark [facility] 09/04/2018 Z68.29 - Body mass index (BM I) 29.0-29.9, adult Medical Established Patient with Karla Amber [employer] 09/04/2018 Assess vaginal candidiasis Medical Estab lished Patient with Karlanaveed Clark [employer] 07/31/2018 Diagnosis Abnormal mammogram Abnormal mammogram, unspecified Diagnosis Abnormal mammogram Abnormal mammogram, unspecified Findings Encounter Date Antiasthmatics [facility] Asthma Clinic-Ne w with Kalranaveed Clark [employer] 05/06/2020 Assessment of tobacco use CPS Asthma Cli yash-New with Karlanaveed Clark [employer] 05/06/2020 Body mass index CPS Asthma Clinic-Ne w with Karlanaveed Clark [facility] 05/06/2020 Chronic obstructive pulmonary disease CP S Asthma Clinic-New with Karlanaveed Clark [facility] 05/06/2020 Overweight CPS Asthma Clinic-Ne w with Karlanaveed Clark [facility] 05/06/2020 Z11.4 - Encounter for screen ing for human immunodeficiency virus [HIV] CPS Asthma Clinic-New with Karlanaveed Clark [facility] 05/06/2020 Diabetes Risk Test Score was three score 03/31/2020 Medical Established Patient with Karlanaveed Clark [facility] 03/31/2020 Overweight Medical Established Patient with Karla Amber [facility] 03/31/2020 Z68.25 - Body mass index [BM I] 25.0-25.9, adult Medical Established Patient with Karla Amber [facility] 03/31/2020 Encounter for Immunization Nurse Visit with GaryNicolasa [facility] 03/14/2020 Body mass index Medical Established Patient with Karlanaveed Clark [facility] 02/26/2020 Overweight Medical Established Patient with Karlanaveed Clark [facility] 02/26/2020 Overweight Medical Established Patient with Karlanaveed Clark [employer] 07/23/2019 Z68.27 - Body mass index (BM I) 27.0-27.9, adult Medical Established Patient with Karlanaveed Clark [employer] 07/23/2019 Occasional asthma CPS- Asthma Clinic- F/U with Karlanaveed Clark [employer] 06/05/2019 Overweight CPS- Asthma Clinic- F/U with Karlanaveed Clark [employer] 06/05/2019 Z68.27 - Body mass index (BM I) 27.0-27.9 adult CPS- Asthma Clinic- F/U with Karlanaveed Clark [employer] 06/05/2019 Occasional asthma CPS Med Review with Karla Clark [employer] 04/23/2019 Overweight CPS Med Review with Karla Clark [employer] 04/23/2019 Z68.27 - Body mass index (BM I) 27.0-27.9 adult CPS Med Review with Karla Clark [employer] 04/23/2019 Acute pharyngitis Medical Established Patient with Brandy Kelley [employer] 04/15/2019 Asthmatic bronchitis with ac wales exacerbation Medical Established Patient with Brandy Kelley [employer] 04/15/2019 Fagerstrom Score was two Medical Establi shed Patient with Brandy Kelley [employer] 04/15/2019 PHQ-9: total score was three 04/15/2019 Medical Established Patient with Brandy Kelley [employer] 04/15/2019 Body mass index Medical Established Patient with Karla Clark [employer] 03/05/2019 Diabetes Risk Test Score was three score Medical Established Patient with Karlanaveed Clark [employer] 03/05/2019 Overweight Medical Established Patient with Karla Amber [employer] 03/05/2019 Z68.28 - Body mass index (BM I) 28.0-28.9, adult Medical Established Patient with Karlanaveed Clark [facility] 12/22/2018 Assess routine adult history and physical (18 - 64 yrs) Medical Established Patient with Karlanaveed Clark [employer] 11/06/2018 Overweight Medical Established Patient with Karla Amber [facility] 11/06/2018 Z68.28 - Body mass index (BM I) 28.0-28.9, adult Medical Established Patient with Karlanaveed Clark [facility] 11/06/2018 Assess dysphagia Medical Established Patient with Karla Amber [facility] 09/11/2018 Assess routine adult history and physical (18 - 64 yrs) Medical Established Patient with Karlanaveed Clark [facility] 09/11/2018 Assess primary insomnia with sleep apnea Medical Established Patient with Karlanaveed Clark [facility] 09/04/2018 Assess routine adult history and physical (18 - 64 yrs) Medical Established Patient with Karla Amber [facility] 09/04/2018 Overweight Medical Established Patient with Karla Amber [facility] 09/04/2018 Z68.29 - Body mass index (BM I) 29.0-29.9, adult Medical Established Patient with Karlanaveed Clark [facility] 09/04/2018 Assess vaginal candidiasis Medical Estab lished Patient with Karlanaveed Clark [employer] 07/31/2018 Diagnosis Abnormal ultrasound of breast Other (abnormal) findings on radiological examination of breast Lesion of breast Unspecified breast disorder Diagnosis Hyperprolactinemia (HCC) Other and unspecified anterior pituitary hyperfunction Findings Encounter Date Acute pharyngitis Medical Established Patient with Brandy Kelley [employer] 04/15/2019 Asthmatic bronchitis with ac wales exacerbation Medical Established Patient with Brandy Kelley [employer] 04/15/2019 Fagerstrom Score was two Medical Establi shed Patient with Brandy Kelley [employer] 04/15/2019 PHQ-9: total score was three 04/15/2019 Medical Established Patient with Brandy Kelley [employer] 04/15/2019 Body mass index Medical Established Patient with Karla Clark [employer] 03/05/2019 Diabetes Risk Test Score was three score Medical Established Patient with Karla Clark [employer] 03/05/2019 Overweight Medical Established Patient with Karla Amber [employer] 03/05/2019 Z68.28 - Body mass index (BM I) 28.0-28.9, adult Medical Established Patient with Karlanaveed Clark [employer] 12/22/2018 Assess routine adult history and physical (18 - 64 yrs) Medical Established Patient with Karlanaveed Clark [employer] 11/06/2018 Overweight Medical Established Patient with Karla Amber [employer] 11/06/2018 Z68.28 - Body mass index (BM I) 28.0-28.9, adult Medical Established Patient with Karlanaveed Clark [employer] 11/06/2018 Assess dysphagia Medical Established Patient with Karlanaveed Clark [facility] 09/11/2018 Assess routine adult history and physical (18 - 64 yrs) Medical Established Patient with Karlanaveed Clark [employer] 09/11/2018 Assess primary insomnia with sleep apnea Medical Established Patient with Karla Amber [employer] 09/04/2018 Assess routine adult history and physical (18 - 64 yrs) Medical Established Patient with Karla Amber [employer] 09/04/2018 Overweight Medical Established Patient with Karla Amber [employer] 09/04/2018 Z68.29 - Body mass index (BM I) 29.0-29.9, adult Medical Established Patient with Karla Clark [employer] 09/04/2018 Assess vaginal candidiasis Medical Estab lished Patient with Karlanaveed Clark [employer] 07/31/2018 Findings Encounter Date Z68.24 - Body mass index [BM I] 24.0-24.9, adult Medical Established Patient with Karla Clark [employer] 06/17/2020 Overweight Medical Established Patient with Karla Clark [facility] 06/06/2020 Z68.25 - Body mass index [BM I] 25.0-25.9, adult Medical Established Patient with Karla Clark [employer] 06/06/2020 Antiasthmatics CPS Asthma Clinic-Ne w with Karla Clark [facility] 05/06/2020 Assessment of tobacco use CPS Asthma Cli yash-New with Karla Floresen [facility] 05/06/2020 Body mass index CPS Asthma Clinic-Ne w with Karlanaveed Clark [facility] 05/06/2020 Chronic obstructive pulmonary disease CP S Asthma Clinic-New with Karla Amber [facility] 05/06/2020 Overweight CPS Asthma Clinic-Ne w with Karla Amber CNP 05/06/2020 Z11.4 - Encounter for screen ing for human immunodeficiency virus [HIV] CPS Asthma Clinic-New with Karla Amber [facility] 05/06/2020 Diabetes Risk Test Score was three score 03/31/2020 Medical Established Patient with [facility] 03/31/2020 Overweight [facility] 03/31/2020 Z68.25 - Body mass index [BM I] 25.0-25.9, adult Medical Established Patient with Karla Amber [facility] 03/31/2020 Encounter for Immunization Nurse Visit with GaryNicolasa [facility] 03/14/2020 Body mass index Medical Established Patient with Karla Amber [facility] 02/26/2020 Overweight Medical Established Patient with Karla Amber [facility] 02/26/2020 Overweight Medical Established Patient with Karla Amber [facility] 07/23/2019 Z68.27 - Body mass index (BM I) 27.0-27.9, adult Medical Established Patient with Karla Amber [facility] 07/23/2019 Occasional asthma CPS- Asthma Clinic- F/U with Karlanaveed Clark [facility] 06/05/2019 Overweight CPS- Asthma Clinic- F/U with Kalra Amber [facility] 06/05/2019 Z68.27 - Body mass index (BM I) 27.0-27.9 adult CPS- Asthma Clinic- F/U with Karlanaveed Clark [facility] 06/05/2019 Occasional asthma CPS Med Review with Karlanaveed Clark [facility] 04/23/2019 Overweight CPS Med Review with Karlanaveed Clark [facility] 04/23/2019 Z68.27 - Body mass index (BM I) 27.0-27.9 adult CPS Med Review with Karlanaveed Clark [facility] 04/23/2019 Acute pharyngitis Medical Established Patient with Brandy Kelley [facility] 04/15/2019 Asthmatic bronchitis with ac wales exacerbation Medical Established Patient with Brandy Kelley [facility] 04/15/2019 Fagerstrom Score was two Medical Establi shed Patient with Brandy Kelley [facility] 04/15/2019 PHQ-9: total score was three 04/15/2019 Medical Established Patient with Brandy Kelley [facility] 04/15/2019 Body mass index Medical Established Patient with Karla Clark [facility] 03/05/2019 Diabetes Risk Test Score was three score Medical Established Patient with Karla Clark [employer] 03/05/2019 Overweight Medical Established Patient with Karlanaveed Clark [employer] 03/05/2019 Z68.28 - Body mass index (BM I) 28.0-28.9, adult Medical Established Patient with Karlanaveed Clark [employer] 12/22/2018 Assess routine adult history and physical (18 - 64 yrs) Medical Established Patient with Karla Amber [employer] 11/06/2018 Overweight Medical Established Patient with Karla Amber [employer] 11/06/2018 Z68.28 - Body mass index (BM I) 28.0-28.9, adult Medical Established Patient with Karla Clark [employer] 11/06/2018 Assess dysphagia Medical Established Patient with Karlanaveed Clark [employer] 09/11/2018 Assess routine adult history and physical (18 - 64 yrs) Medical Established Patient with Kralanaveed Clark [facility] 09/11/2018 Assess primary insomnia with sleep apnea Medical Established Patient with Karlanaveed Clark [facility] 09/04/2018 Assess routine adult history and physical (18 - 64 yrs) Medical Established Patient with Karlanaveed Clark [employer] 09/04/2018 Overweight Medical Established Patient with Karla Clark [facility] 09/04/2018 Z68.29 - Body mass index (BM I) 29.0-29.9, adult Medical Established Patient with Karla Clark [employer] 09/04/2018 Assess vaginal candidiasis Medical Estab lished Patient with Karla Clark [employer] 07/31/2018 Findings Encounter Date Diabetes Risk Test Score was three score 03/31/2020 Medical Established Patient with Karla Clark [facility] [facility] 03/31/2020 Overweight Medical Established Patient with Karlanaveed Clark [facility] 03/31/2020 Z68.25 - Body mass index [BM I] 25.0-25.9, adult Medical Established Patient with Karla Clark [employer]OTTON DISPATCHER 03/31/2020 Encounter for Immunization Nurse Visit with GaryNicolasa [facility] 03/14/2020 Body mass index Medical Established Patient with Karla Amber COTTON DISPATCHER 02/26/2020 Overweight Medical Established Patient with Karla Amber COTTON DISPATCHER 02/26/2020 Overweight Medical Established Patient with Karla Amber COTTON DISPATCHER 07/23/2019 Z68.27 - Body mass index (BM I) 27.0-27.9, adult Medical Established Patient with Karla Amber COTTON DISPATCHER 07/23/2019 Occasional asthma CPS- Asthma Clinic- F/U with Karla Clark [facility] 06/05/2019 Overweight CPS- Asthma Clinic- F/U with Karlanaveed Clark [facility] 06/05/2019 Z68.27 - Body mass index (BM I) 27.0-27.9 adult CPS- Asthma Clinic- F/U with Karla Clark COTTON DISPATCHER 06/05/2019 Occasional asthma CPS Med Review with Karla dinh [facility] 04/23/2019 Overweight CPS Med Review with Karlanaveed Clark [facility] 04/23/2019 Z68.27 - Body mass index (BM I) 27.0-27.9 adult CPS Med Review with Karla Clark [facility] 04/23/2019 Acute pharyngitis Medical Established Patient with Brandy Serranoer [facility] 04/15/2019 Asthmatic bronchitis with ac wales exacerbation Medical Established Patient with Brandy Serranoer [facility] 04/15/2019 Fagerstrom Score was two Medical Establi shed Patient with Brandy Serranoer [facility] 04/15/2019 PHQ-9: total score was three 04/15/2019 [facility] Body mass index Medical Established Patient with Karla Clark [facility] 03/05/2019 Diabetes Risk Test Score was three score Medical Established Patient with Karal Clark [facility] 03/05/2019 Overweight Medical Established Patient with Karlanaveed Clark [facility] 03/05/2019 Z68.28 - Body mass index (BM I) 28.0-28.9, adult Medical Established Patient with Karla Clark [facility] 12/22/2018 Assess routine adult history and physical (18 - 64 yrs) Medical Established Patient with Karla Clark [facility] 11/06/2018 Overweight Medical Established Patient with Karla Clark [facility] 11/06/2018 Z68.28 - Body mass index (BM I) 28.0-28.9, adult Medical Established Patient with Karla Clark [facility] 11/06/2018 Assess dysphagia Medical Established Patient with Karla Clark [facility] 09/11/2018 Assess routine adult history and physical (18 - 64 yrs) Medical Established Patient with Karlanaveed Clark [facility] 09/11/2018 Assess primary insomnia with sleep apnea Medical Established Patient with Karla Clark [facility] 09/04/2018 Assess routine adult history and physical (18 - 64 yrs) Medical Established Patient with Karlanaveed Clark [facility] 09/04/2018 Overweight Medical Established Patient with Karlanaveed Clark COTTON DISPATCHER 09/04/2018 Z68.29 - Body mass index (BM I) 29.0-29.9, adult Medical Established Patient with Karla Clark COTTON DISPATCHER 09/04/2018 Assess vaginal candidiasis Medical Estab lished Patient with Karlanaveed Clark [employer]OTTON DISPATCHER 07/31/2018 Diagnosis Duct ectasia of breast, left Findings Encounter Date Body mass index Medical Established Patient with Karlanaveed Clark [employer]OTTON DISPATCHER 03/05/2019 Diabetes Risk Test Score was three score Medical Established Patient with Karlanaveed Clark [employer] DISPATCHER 03/05/2019 Overweight Medical Established Patient with Karla Amber COTTON DISPATCHER 03/05/2019 Z68.28 - Body mass index (BM I) 28.0-28.9, adult Medical Established Patient with Karlanaveed Clark [employer]OTTON DISPATCHER 12/22/2018 Assess routine adult history and physical (18 - 64 yrs) Medical Established Patient with Karla Amber COTTON DISPATCHER 11/06/2018 Overweight Medical Established Patient with Karla Amber COTTON DISPATCHER 11/06/2018 Z68.28 - Body mass index (BM I) 28.0-28.9, adult Medical Established Patient with Karla Amber [employer]OTTON DISPATCHER 11/06/2018 Assess dysphagia Medical Established Patient with Karla Amber [employer]OTTON DISPATCHER 09/11/2018 Assess routine adult history and physical (18 - 64 yrs) Medical Established Patient with Karla Amber COTTON DISPATCHER 09/11/2018 Assess primary insomnia with sleep apnea Medical Established Patient with Karla Amber COTTON DISPATCHER 09/04/2018 Assess routine adult history and physical (18 - 64 yrs) Medical Established Patient with Karla Amber COTTON DISPATCHER 09/04/2018 Overweight Medical Established Patient with Karla Amber COTTON DISPATCHER 09/04/2018 Z68.29 - Body mass index (BM I) 29.0-29.9, adult Medical Established Patient with Karlanaveed Clark [employer]OTTON DISPATCHER 09/04/2018 Assess vaginal candidiasis Medical Estab lished Patient with Karla Clark [facility] 07/31/2018 Instructions Instructions not supported for this [...] 07/31/2018 Last Documented On 9 2:12PM ; [facility] Description Last Updated No significant medical history in nuclea r family 07/31/2018 Last Documented On 9 2:12PM ; [facility] Description Last Updated No significant medical history in nuclea r family 07/31/2018 Last Documented On 9 2:12PM ; [facility] Description Last Updated No significant medical history in nuclea r family 07/31/2018 Last Documented On 9 2:12PM ; [facility] Relationship Condition Age at Onset Recorded Date/T aviva Not Specified Intellectual disability Unknown father History of coronary artery stent placement Unknown Coronary artery disease Unknown Not Specified Recurrent cerebrovas cular accidents (CVAs) Unknown brother Congestive heart failure Unknown Muscular dystrophy Unknown Description Last Updated No significant medical history in nuclea r family 07/31/2018 Last Documented On 9 2:12PM ; [facility] Description Last Updated Maternal history of breast neoplasm 02/02 Last Documented On 3 9:51AM ; [facility] No significant medical history in nuclea r family 07/31/2018 Last Documented On 9 2:12PM ; [facility] Relationship Condition Age at Onset Recorded Date/T aviva father History of coronary artery stent placement Unknown Coronary artery disease Unknown Not Specified Recurrent cerebrovas cular accidents (CVAs) Unknown brother Congestive heart failure Unknown Muscular dystrophy Unknown Description Last Updated Maternal history of breast neoplasm 02/02 Last Documented On 3 9:51AM ; [facility] No significant medical history in nuclea r family 07/31/2018 Last Documented On 9 2:12PM ; [facility] Relationship Condition Age at Onset Recorded Date/T aviva father History of coronary artery stent placement Unknown Coronary artery disease Unknown Not Specified Recurrent cerebrovas cular accidents (CVAs) Unknown brother Congestive heart failure Unknown Muscular dystrophy Unknown brother Unknown Heart disease Unknown Not Specified Malignant neoplasm Unknown Description Last Updated Maternal history of breast neoplasm 02/02 Last Documented On 3 9:51AM ; [facility] No significant medical history in nuclea r family 07/31/2018 Last Documented On 9 2:12PM ; [facility] Description Last Updated Maternal history of breast neoplasm 02/02 Last Documented On 3 9:51AM ; [facility] No significant medical history in nuclea r family 07/31/2018 Last Documented On 9 2:12PM ; [facility] Description Last Updated Maternal history of breast neoplasm 02/02 Last Documented On 3 9:51AM ; [facility] No significant medical history in nuclea r family 07/31/2018 Last Documented On 9 2:12PM ; [facility] Relationship Condition Age at Onset Recorded Date/T aviva father History of coronary artery stent placement Unknown Coronary artery disease Unknown mother Recurrent cerebrovas cular accidents (CVAs) Unknown brother Congestive heart failure Unknown Muscular dystrophy Unknown brother Unknown Heart disease Unknown mother Malignant neoplasm Unknown Review of System Review of Systems not [...] FoundDocuments on File Type Date Recorded 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 ACP-Power of Pc Support Specialist 08/01/2021 10:21 AM Latest Code Status on File Code Status Date Activated Date Inactivated Comments Full Code 03/23/2013 12:03 AM 03/23/2013 7:42 PM Documents on File Type Date Recorded 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 Advance Directives and Living Will Power of Pc Support Specialist Latest Code Status on File Code Status Date Activated Date Inactivated Comments Full Code 03/23/2013 12:03 AM 03/23/2013 7:42 PM Documents on File Type Date Recorded 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 Advance Directives and Living Will Power of Pc Support Specialist Documents on File Type Date Recorded 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 ACP-Advance Directive ACP-Power of Pc Support Specialist Documents on File Type Date Recorded 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 ACP-Advance Directive ACP-Power of Pc Support Specialist Documents on File Type Date Recorded 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 Gave patient informational packet and was advised to fill out and bring back at next appointment. 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 Please follow [...] documented in this encounter* Instructions* Marina Ag I, TAWANNA - 06/08/2020 DISCHARGE INSTRUCTIONS FOR BREAST BIOPSY [...] common and can be relieved with an qqel-vpv-xylvamk (non-aspirin) analgesic such as Tylenol. Pleasefollow the [...] HC US BREAST COMP Billy Ojeda MD [address] [address] [facility] [address] [place] [address] Status Reason Specialty Diagnoses / Procedures Referre d By Contact Referred To Contact Closed Radiology Diagnoses Abnormal mammogram Procedures LINDA DIGITAL DIAGNOSTIC W OR WO CAD LEFT Billy Ojeda MD 27 [facility] [address] [place] [address] Status Reason Specialty Diagnoses / Procedures Referre d By Contact Referred To Contact Closed Radiology Diagnoses Hyperprolactinemia (HCC) Procedures MRI BRAIN W WO CONTRAST Karla Clark, CHILD CARE SUPERVISOR - COTTON DISPATCHER [address] [place] [address] Status Reason Specialty Diagnoses / Procedures Referre d By Contact Referred To Contact Open Diagnoses Duct ectasia of breast, left Procedures US BREASt COMPLETE LEFT HC US BREAST COMP She Spencer APRN - CNM [address] [place] [address] Status Reason Specialty Diagnoses / Procedures Referre d By Contact Referred To Contact Closed Radiology Diagnoses History of breast biopsy Procedures LINDA ERYN DIGITAL DIAGNOSTIC BILATERAL She Spencer APRN - CNM 27 [facility] [address] [place] [id number] [facility] [address] Specialty Diagnoses / Procedures Referred By Contac t Referred To Contact Radiology Diagnoses Breast lump on right side at 4 o'clock position Procedures MRI BREAST BILATERAL W CONTRAST She Spencer CHILD CARE SUPERVISOR - CNM [address] [place] [address] [place] [address] Referral ID Status Reason Start Date Expiration Date Visits Re quested Visits Authorized [id number] Closed 07/19/2021 07/19/2022 1 1 Specialty Diagnoses / Procedures Referred By Contac t Referred To Contact Cardiology Diagnoses Pre-operative clearance Abnormal EKG History of AR (myocardial infarction) Procedures ECHO Complete 2D W Doppler W Color Héctor Turner MD [address] [place] [id number] Referral ID Status Reason Start Date Expiration Date Visits Re quested Visits Authorized [id number] Closed 01/01/2022 01/01/2023 1 1 Summary Purpose [...] Flank pain Nausea & vomiting Schizoaffective disorder Chief Complaint [facility] Reason for Visit Acute psychosis Chronic schizophrenia Chief Complaint [facility] See order Reason for Visit Acute psychosis Chronic schizophrenia Schizoaffective disorder Chief Complaint [facility] Reason for Visit MYESHA (acute kidney in jury) Schizoaffective disorder Chief Complaint [facility] Reason for Visit Acute psychosis MYESHA (acute kidney injury) Chronic schizophrenia Schizoaffective disorder Additional Source Comments Evaluations & [...] EACH ADDL LESION LEFT Billy Ojeda MD [address] [place], [place] [id number] Status Reason Specialty Diagnoses / Procedures Referre d By Contact Referred To Contact Closed Radiology Diagnoses Abnormal mammogram Procedures US BREAST COMPLETE LEFT HC US BREAST COMP Billy Ojeda MD [address] [place], [place] [id number] [facility] [address] [place] [address] Status Reason Specialty Diagnoses / Procedures Referred By Contact Referred To Contact Pending Review Radiology Diagnoses Abnormal mammogram Procedures LINDA ERYN DIGITAL DIAGNOSTIC BILATERAL LINDA DIGITAL DIAGNOSTIC W OR WO CAD LEFT HC MAMMO DGX UNILATERAL INCL CAD IF PERF Billy Ojeda MD [address] [place] [address] [address] [place] [address] [facility] [address] [place] [address] Status Reason Specialty Diagnoses / Procedures Referre d By Contact Referred To Contact Open Radiology Diagnoses Abnormal ultrasound of breast Lesion of breast Procedures US BREAST BIOPSY W LOC DEVICE 1ST LESION LEFT US GUIDED LEFT BREAST BIOPSY Billy Ojeda MD [address] [place] [address] [place] [address] [facility] [address] [place] [address] Status Reason Specialty Diagnoses / Procedures Referre d By Contact Referred To Contact Closed Radiology Diagnoses Abnormal mammogram Procedures LINDA DIGITAL DIAGNOSTIC W OR WO CAD LEFT Billy Ojeda MD [address] [place] [address] [place] [address] Status Reason Specialty Diagnoses / Procedures Referred By Contact Referred To Contact Pending Review Radiology Diagnoses Hyperprolactinemia Procedures HC MRI-BRAIN WO & W CONTRAST Karla Clark, CHILD CARE SUPERVISOR - COTTON DISPATCHER [address] [place] [address] [facility] [address] [place] [address] Status Reason Specialty Diagnoses / Procedures Referre d By Contact Referred To Contact Open Diagnoses Duct ectasia of breast, left Procedures US BREASt COMPLETE LEFT HC US BREAST COMP She Spencer, CHILD CARE SUPERVISOR - CNM [address] [place] [address] Status Reason Specialty Diagnoses / Procedures Referre d By Contact Referred To Contact Closed Radiology Diagnoses History of breast biopsy Procedures LINDA ERYN DIGITAL DIAGNOSTIC BILATERAL She Spencer, CHILD CARE SUPERVISOR - CNM 27 [facility] [address] [place] [address] [facility] [address] [place] [address] Specialty Diagnoses / Procedures Referred By Contac t Referred To Contact Radiology Diagnoses Breast lump on right side at 4 o'clock position Procedures MRI BREAST BILATERAL W CONTRAST She Spencer, RODNEY - CN[address] [place] [address] Referral ID Status Reason Start Date Expiration Date Visits Re quested Visits Authorized [id number] Closed 07/19/2021 07/19/2022 1 1 Specialty Diagnoses / Procedures Referred By Contac t Referred To Contact Cardiology Diagnoses Pre-operative clearance Abnormal EKG History of AR (myocardial infarction) Procedures ECHO Complete 2D W Doppler W Color Héctor Turner MD [address] [place] [address] Referral ID Status Reason Start Date Expiration Date Visits Re quested Visits Authorized [id number] Closed 01/01/2022 01/01/2023 1 1 Specialty Diagnoses / Procedures Referred By Contac t Referred To Contact Dermatology Diagnoses neoplasm of uncertain behavior of skin Karla Clark MD [address] [id number] Dakota Mack MD [address] [address] Referral ID Status Reason Start Date Expiration Date Visits Re quested Visits Authorized [id number] Closed 06/13/2023 12/10/2023 1 1 Reason Comments Patient Question Reason Comments Follow Up Medical History (unrecognize d section and content) Description [facility] History of abnormal electrocardiogram History of [...] section and content) DATE CREATED AUTHOR 2020 [facility] DATE CREATED AUTHOR AUTHOR'S ORGANIZ ATION 10/26/2021 [facility] DATE CREATED AUTHOR AUTHOR'S ORGANIZ ATION 11/10/2022 [facility] DATE CREATED AUTHOR AUTHOR'S ORGANIZ ATION 02/03/2023 [facility] DATE CREATED AUTHOR AUTHOR'S ORGANIZ ATION 06/05/2023 [facility] DATE CREATED AUTHOR AUTHOR'S ORGANIZ ATION 09/29/2023 [facility] DATE CREATED AUTHOR AUTHOR'S ORGANIZ ATION 11/20/2023 [facility] EPIC DATE CREATED AUTHOR AUTHOR'S ORGANIZ ATION 01/08/2024 [facility] Care Teams (unrecognized sec tion and content) Team Status: Active Member Role Status Dates NON STAFF Primary Care Provider Active Team Status: Active Member Role Status Dates Karla Clark APRN WATCH REPAIR TECHNICIAN-C Primary Care Provider Activ e Start: November 26, 2023 Joe Davis MD Attending Provider Active Start: November 26, 2023 Team Status: Active Member Role Status Dates NON STAFF Primary Care Provider Active Start: December 16, 2023 Juve Spears PA-C Emergency Provider Active Start: December 16, 2023 Joe Davis MD Admit Provide r, Attending Provider Active Start: December 16, 2023 Team Status: Inactive Member Role Status Dates NON STAFF Primary Care Provider Active Start: August 15, 2023 End: August 20, 2023 Nimesh Westfall DO Emergency Provider Active Start: August 15, 2023 End: August 20, 2023 Joe Davis MD Admit Provide r, Attending Provider Active Start: August 15, 2023 End: August 20, 2023 Team Status: Active Member Role Status Dates NON STAFF Primary Care Provider Active Start: August 16, 2023 Nimesh Westfall DO Emergency Provider Active Start: August 16, 2023 Joe Davis MD Admit Provide r, Attending Provider, Other Provider Active Start: August 16, 2023 Team Status: Active Member Role Status Dates NON STAFF Primary Care Provider Active Start: August 20, 2023 Alannah James DO Attending Provider Active S tart: August 20, 2023 Team Status: Active Member Role Status Dates NON STAFF Primary Care Provider Active Start: August 15, 2023 Nimesh Westfall DO Emergency Provider Active Start: August 15, 2023 Joe Davis MD Admit Provide r, Attending Provider Active Start: August 15, 2023 Team Status: Active Member Role Status Dates Karla Alexey Amber , CHILD CARE SUPERVISOR WATCH REPAIR TECHNICIAN-C Primary Care Provider Activ e Team Status: Active Member Role Status Dates Karlanaveed Clark , CHILD CARE SUPERVISOR WATCH REPAIR TECHNICIAN-C Primary Care Provider Activ e Monster Davis MD Attending Provider Active Team Status: Inactive Member Role Status Dates Karla Blackburn Amber , CHILD CARE SUPERVISOR WATCH REPAIR TECHNICIAN-C Primary Care Provider Activ e Emory Adame , Attending Provider Active Boat Hand Relationship Specialty Start Date End Date Karla Clark CHILD CARE SUPERVISOR - COTTON DISPATCHER [address] [place] [address] PCP - General 02/23/16 Boat Hand Relationship Specialty Start Date End Date Karla Clark CHILD CARE SUPERVISOR - COTTON DISPATCHER [address] [place] [facility] [place] [address] PCP - General 02/23/16 Boat Hand Relationship Specialty Start Date End Date Karla Clark CHILD CARE SUPERVISOR - COTTON DISPATCHER [address] [place] [facility] [place] [address] PCP - General 02/23/16 Boat Hand Relationship Specialty Start Date End Date Karla Clark CHILD CARE SUPERVISOR - COTTON DISPATCHER [address] [place] [facility] [place] [address] PCP - General 02/23/16 Team Status: Inactive Member Role Status Dates Emory Adame , DO Attending Provider Active Team Status: Inactive Member Role Status Dates Emory Adame , DO Attending Provider Active Karla Clark , CHILD CARE SUPERVISOR WATCH REPAIR TECHNICIAN-C Primary Care Provider Activ e Team Status: Inactive Member Role Status Dates Emory Adame , DO Attending Provider Active PHYSICIAN NO FAMILY Primary Care Provider Active Team Status: Inactive Member Role Status Dates Karla Clark , CHILD CARE SUPERVISOR WATCH REPAIR TECHNICIAN-C Primary Care Provider Activ e Zak Reza , DO Attending Provider Active Team Status: [...] RN Other Provider Active Ana Milan , CHILD CARE SUPERVISOR Other Provider Active Barbie Choi , DO [...] MD Other Provider Active Roseline Aguilar , WATCH REPAIR TECHNICIAN-C Other Provider Active Jaswinder Robert MD Other Provider Active Titus Christianson MD Other Provider Active Kody Leon MD Other Provider Active Gibson Cid MD Other Provider Active Yolanda Davila , DO Other Provider Active Jeancarlos Bonilla , DO Other Provider Active Scottie Quinn , DO Other Provider Active Maddy Hallman CHILD CARE SUPERVISOR Other Provider Active Jose Huang , DO Other Provider Active Naga Lundberg MD Other Provider Active Leny Spencer CHILD CARE SUPERVISOR Other Provider Active Winnie Jenkins CHILD CARE SUPERVISOR Other Provider Active Greg Ocampo MD Other Provider Active Loy Rivers MD Other Provider Active Ludwig Amador , DO Other Provider Active Pinky Jewell CHILD CARE SUPERVISOR Other Provider Active Alice Grimaldo , TAWANNA Other Provider Active Team Status: Inactive Member Role Status Dates NON STAFF Primary Care Provider Active Joe Davis MD Admit Provider, Attending Alpa mejia Active Cecilia Soares , TAWANNA Other Provider Active Florencia Pizarro , TAWANNA Other Provider Active Stacey Hudson , TAWANNA Other Provider Active Ann-Marie Sams , TAWANNA Other Provider Active Lisseth Galvna , TAWANNA Other Provider Active Ragini Quiñonez , TAWANNA Other Provider Active Chris Adam MD Other Provider Active Ana Milan , CHILD CARE SUPERVISOR Other Provider Active Barbie Choi , DO Other Provider Active Braden Dlil MD Other Provider Active Chandu Villafana , DO Other Provider Active Thomas Mendez MD Other Provider Active Kathrine Naik MD Other Provider Active Mariana Pryor , CHILD CARE SUPERVISOR Other Provider Active Angel Haley MD Other Provider Active Link Salazar MD Other Provider Active Rosa Lowe MD Other Provider Active Brad Peng MD Other Provider Active Khalif Pettit , DO Other Provider Active Sherif Campbell MD Other Provider Active Francisco Keene MD Other Provider Active Roseline Aguilar , WATCH REPAIR TECHNICIAN-C Other Provider Active Jaswinder Robert MD Other Provider Active Titus Christianson MD Other Provider Active Kody Leon MD Other Provider Active Gibson Cid MD Other Provider Active Yolanda Davila , DO Other Provider Active Jeancarlos Bonilla , DO Other Provider Active Scottie Quinn , DO Other Provider Active Maddy Hallman , CHILD CARE SUPERVISOR Other Provider Active Jose Huang , DO Other Provider Active Naga Lundbreg MD Other Provider Active Leny Spencer CHILD CARE SUPERVISOR Other Provider Active Winnie Jenkins , CHILD CARE SUPERVISOR Other Provider Active Greg Ocampo MD Other Provider Active Loy Rivers MD Other Provider Active Ludwig Amador , DO Other Provider Active Pinky Jewell CHILD CARE SUPERVISOR Other Provider Active London Mccann , DO Other Provider Active Alice Grimaldo RN Other Provider Active Team Status: Inactive Member Role Status Dates Joe Davis MD Admit Provider, Attending Alpa mejia Active NON STAFF Primary Care Provider Active Cecilia Soares , TAWANNA Other Provider Active Florencia Pizarro , TAWANNA Other Provider Active Stacey Hudson , TAWANNA Other Provider Active Ann-Marie Sams , TAWANNA Other Provider Active Lisseth Galvan , TAWANNA Other Provider Active Ragini Quiñonez , TAWANNA Other Provider Active Ana Milan , CHILD CARE SUPERVISOR Other Provider Active Barbie Choi , DO Other Provider Active Braden Dill MD Other Provider Active Chandu Villafana , DO Other Provider Active Thomas Mendez MD Other Provider Active Kathrine Naik MD Other Provider Active Mariana Pryor , CHILD CARE SUPERVISOR Other Provider Active Angel Haley MD Other Provider Active Link Salazar MD Other Provider Active Rosa Lowe MD Other Provider Active Brad Peng MD Other Provider Active Khalif Pettit , DO Other Provider Active Sherif Campbell MD Other Provider Active Francisco Keene MD Other Provider Active Roseline Aguilar , WATCH REPAIR TECHNICIAN-C Other Provider Active Jaswinder Robert MD Other Provider Active Titus Christianson MD Other Provider Active Kody Leon MD Other Provider Active Gibson Cid MD Other Provider Active Yolanda Davila , DO Other Provider Active Jeancarlos Bonilla , DO Other Provider Active Scottie Quinn , DO Other Provider Active Maddy Hallman , CHILD CARE SUPERVISOR Other Provider Active Jose Huang , DO Other Provider Active Naga Lundberg MD Other Provider Active Leny Spencer , CHILD CARE SUPERVISOR Other Provider Active Winnie Jenkins , CHILD CARE SUPERVISOR Other Provider Active Greg Ocampo MD Other Provider Active Loy Rivers MD Other Provider Active Ludwig Amador , DO Other Provider Active Pinky Jewell CHILD CARE SUPERVISOR Other Provider Active Alice Grimaldo RN Other Provider Active Team Status: Inactive Member Role Status Dates NON STAFF Primary Care Provider Active Start: August 20, 2023 End: August 20, 2023 Alannah James , DO Attending Provider Active S tart: August 20, 2023 End: August 20, 2023 Boat Hand Relationship Specialty Start Date End Date TimmiDeepti alexander MD [address] [place] [address] Referring Ent - Otolaryngology 01/25/23 Boat Hand Relationship Specialty Start Date End Date RonsarahDeepti MD [address] [place] [address] Referring Ent - Otolaryngology 01/25/23 Team Status: Inactive Member Role Status Dates NON STAFF Primary Care Provider Active Start: December 16, 2023 End: December 24, 2023 Juve Spears PA-C Emergency Provider Active Start: December 16, 2023 End: December 24, 2023 Joe Davis MD Admit Provide r, Attending Provider Active Start: December 16, 2023 End: December 24, 2023 Team Status: Active Member Role Status Dates NON STAFF Primary Care Provider Active Start: December 18, 2023 Juve Spears PA-C Emergency Provider Active Start: December 18, 2023 Joe Davis MD Admit Provide r, Attending Provider, Other Provider Active Start: December 18, 2023 Goals (unrecognized section and content) Goals may be documented in a n alternate section Source Comments (unrecognize d section and content) In the event this informatio n is protected by the Federal Confidentiality of Alcohol and Drug Abuse Patient Records regulations: The Federal rules restrict any use of the information to criminally investigate or prosecute any alcohol or drug abuse patient.[facility] the event this information is protected by the Federal Confidentiality of Alcohol and Drug Abuse Patient Records regulations: The Federal rules restrict any use of the information to criminally investigate or prosecute any alcohol or drug abuse patient.[facility] FOR RECORDS PERTAINING TO PATIENTS WHO ARE [...] BE BASED ON THE PRIMARY CLINICAL RECORDS. [facility] [employer] [facility]. provides no warranty or guarantee of the accuracy or completeness of information in this document.
[2024-01-14] MEDS: ACETAMINOPHEN 325 MG TABLET 650 MG PO (06:20)
--- NOTE | 2024-01-14 06:27 | PC.NURSE ---
Fall from standing position, landed in right side, pain to right elbow and right knee, no redness or bruising noted to areas, ice applied to right knee and right elbow. Laceration above upper lip, area cleansed with Hibicleanse.
--- NOTE | 2024-01-14 06:30 | ED.FALL1 ---
HPI HPI - Fall General Chief Complaint: Fall Stated Complaint: FALL Time Seen by Provider: 01/14/24 05:37 Source: patient and EMR Mode of arrival: ambulance Limitations: no limitations History of Present Illness HPI Narrative: This 68-year-old female was transferred from the assisted living facility where she currently resides after she had a fall from standing this morning. The patient states that she went to the kitchen to get a cup of coffee and on the way back she forgot to get her cane so she went back to get her cane and put her coffee down and then fell striking her right shoulder and right knee on the ground and striking her face. She has an approximately 1.5 cm laceration just above her lip. She denies any loss of consciousness. She denies any neck or back pain. Related Data Home Medications ?Medication ?Instructions ?Recorded ?Confirmed amantadine HCl 100 mg tablet 100 mg PO BID 03/11/23 04/22/23 benztropine 0.5 mg tablet 0.5 mg PO BID 03/11/23 04/22/23 lithium carbonate 150 mg capsule 150 mg PO BID 03/11/23 04/22/23 quetiapine 300 mg tablet (Seroquel) 700 mg PO DAILY 03/11/23 03/25/23 albuterol sulfate 90 mcg/actuation 2 inh inhalation Q6H PRN shortness 03/25/23 04/22/23 breath activated powder inhaler of breath or wheezing benzonatate 100 mg capsule 100 mg PO TID 03/25/23 04/22/23 calcium carbonate 500 mg-vitamin 1 tab PO DAILY 03/25/23 03/25/23 D3 5 mcg (200 unit) tablet (Oyster Shell Calcium-Vitamin D3) clonidine HCl 0.1 mg tablet 0.1 mg PO DAILY 03/25/23 04/22/23 docusate sodium 100 mg capsule 100 mg PO DAILY 03/25/23 04/22/23 famotidine 20 mg tablet 20 mg PO Q12H 03/25/23 04/22/23 fluticasone 250 mcg-salmeterol 50 1 inh inhalation Q12H 03/25/23 04/22/23 mcg/dose blistr powdr for inhalation (Wixela Inhub) fluticasone propionate 50 1 spray intranasal BID 03/25/23 03/25/23 mcg/actuation nasal spray,suspension (24 Hour Allergy Relief) folic acid 0.8 mg capsule 800 mcg PO DAILY 03/25/23 04/22/23 hydrocodone 5 mg-acetaminophen 325 1 tab PO Q6H PRN pain 03/25/23 03/25/23 mg tablet loratadine 10 mg tablet 10 mg PO Q24H 03/25/23 04/22/23 mecobalamin (vitamin B12) 5,000 5,000 mcg PO DAILY 03/25/23 03/25/23 mcg chewable tablet meloxicam 15 mg tablet 15 mg PO DAILY 03/25/23 04/22/23 polyethylene glycol 3350 17 17 g PO DAILY 03/25/23 03/25/23 gram/dose oral powder (Miralax) quetiapine 400 mg tablet,extended 400 mg PO DAILY 03/25/23 04/22/23 release 24 hr risperidone microspheres 25 mg/2 25 mg IM Q14D 03/25/23 04/22/23 mL intramuscular susp,ext release (Risperdal Consta) topiramate 25 mg tablet (Topamax) 25 mg PO BEDTIME 03/25/23 04/22/23 Lactobacillus acidophilus 100 mg PO DAILY 04/22/23 04/22/23 (Acidophilus capsule) albuterol sulfate 90 mcg/actuation 2 inh inhalation Q6H PRN shortness 04/22/23 04/22/23 aerosol inhaler of breath or wheezing cyanocobalamin (vitamin B-12) 500 500 mcg PO DAILY 04/22/23 04/22/23 mcg tablet (Vitamin B-12) famotidine 20 mg tablet 20 mg PO BID 04/22/23 04/22/23 fluticasone 250 mcg-salmeterol 50 1 inh inhalation BID 04/22/23 04/22/23 mcg/dose blistr powdr for inhalation (Advair Diskus) polyethylene glycol 3350 17 17 g PO DAILY 04/22/23 04/22/23 gram/dose oral powder (Miralax) quetiapine 100 mg tablet 100 mg PO BID 04/22/23 04/22/23 quetiapine 25 mg tablet 25 mg PO BID 04/22/23 04/22/23 Previous Rx's ?Medication ?Instructions ?Recorded azithromycin 250 mg tablet See Rx Instructions PO .COMPLEX #6 04/22/23 (Zithromax Z-Manoj) tabs Allergies Allergy/AdvReac Type Severity Reaction Status Date / Time aspirin Allergy Severe Unknown Verified 01/14/24 05:28 Barbiturates Allergy Severe Unknown Verified 01/14/24 05:28 fluoxetine Allergy Severe Unknown Verified 01/14/24 05:28 meperidine Allergy Severe Unknown Verified 01/14/24 05:28 Penicillins Allergy Severe Anaphylaxis Verified 01/14/24 05:28 codeine Allergy Unknown Verified 01/14/24 05:28 Sulfa (Sulfonamide AdvReac Mild Altered Verified 01/14/24 05:28 Antibiotics) Sense of Taste Opioid HPI Opioid Management Most Recent Pain and Opioid Data: Ur Phencyclidine Scrn Negative (NEGATIVE) 03/25/23 19:43 Review of Systems ROS Status of ROS 10 or more systems reviewed and unremarkable except as noted in history and below [facility] Social History Smoking status: Current every day smoker Exam Narrative Exam Narrative: Vital signs and Nursing Notes reviewed: Patient is afebrile with a normal pulse, blood pressure is elevated at 167/85 General: Awake, alert, oriented, no acute distress, nontoxic adult female GCS 15 HEENT: Normocephalic atraumatic, mucous membranes are moist and pink, there is a 1.5 cm horizontal laceration just above her upper lip with a contusion on the inner surface of the lip likely related to biting her lip with her teeth when she fell, there is normal occlusion of the jaw, patient is able to open and close her mouth without difficulty Neck: Supple, no meningeal signs, no anterior or posterior cervical lymphadenopathy Chest: Lungs are clear to auscultation with good air entry, there is no wheezing rhonchi or rales appreciated no accessory muscle use, patient is speaking in complete sentences-no chest wall tenderness to palpation CVS: Regular rate and rhythm S1-S2, no murmurs rubs or gallops, pulses are brisk and equal bilaterally ABD: Soft, nondistended, nontender, no rebound guarding or rigidity, bowel sounds are normal, no pulsatile masses appreciated Extremities: Moving all extremities, there is mild tenderness and swelling at the lateral aspect of the right elbow, patient has full range of motion, tractor technician strength is intact, there is mild ecchymosis over the anterior surface of the right knee. Skin: Normal in appearance without rash,pallor, petechiae or purpura Neuro: No focal deficits, speech is clear, tractor technician strength is intact, there is no facial droop, Constitutional Vital Signs, click to edit/add: Last Vital Signs Temp 98.4 F 01/14/24 05:28 Pulse 58 L 01/14/24 05:28 Resp 18 01/14/24 05:28 BP 167/85 H 01/14/24 05:28 Course Vital Signs Vital signs: Vital Signs Temperature 98.4 F 01/14/24 05:28 Pulse Rate 58 L 01/14/24 05:28 Respiratory Rate 18 01/14/24 05:28 Blood Pressure 167/85 H 01/14/24 05:28 Temperature 98.4 F 01/14/24 05:28 Pulse Rate 58 L 01/14/24 05:28 Respiratory Rate 18 01/14/24 05:28 Blood Pressure 167/85 H 01/14/24 05:28 Discharge Plan Discharge Chief Complaint: Fall Clinical Impression: Facial laceration, Fall from standing Patient Disposition: Still a Patient Prescriptions / Home Meds: No Action benzonatate 100 mg capsule 100 mg PO TID clonidine HCl 0.1 mg tablet 0.1 mg PO DAILY docusate sodium 100 mg capsule 100 mg PO DAILY famotidine 20 mg tablet 20 mg PO Q12H fluticasone propionate [24 Hour Allergy Relief] 50 mcg/actuation spray,suspension 1 spray intranasal BID Rx Instructions: administer into each nostril folic acid 0.8 mg capsule 800 mcg PO DAILY loratadine 10 mg tablet 10 mg PO Q24H meloxicam 15 mg tablet 15 mg PO DAILY calcium carbonate-vitamin D3 [Oyster Shell Calcium-Vit D3] 500 mg-5 mcg (200 unit) tablet 1 tab PO DAILY fluticasone propion-salmeterol [Wixela Inhub] 250-50 mcg/dose blister with device 1 inh INHALATION Q12H polyethylene glycol 3350 [Miralax] 17 gram/dose powder 17 g PO DAILY quetiapine 400 mg tablet extended release 24 hr 400 mg PO DAILY Risperdal Consta 25 mg/2 mL suspension,extended rel recon 25 mg IM Q14D topiramate [Topamax] 25 mg tablet 25 mg PO BEDTIME mecobalamin (vitamin B12) 5,000 mcg tablet,chewable 5,000 mcg PO DAILY albuterol sulfate 90 mcg/actuation aerosol powdr breath activated 2 inh inhalation Q6H PRN (Reason: shortness of breath or wheezing) hydrocodone-acetaminophen 5-325 mg tablet 1 tab PO Q6H PRN (Reason: pain) quetiapine 100 mg tablet 100 mg PO BID quetiapine 25 mg tablet 25 mg PO BID Acidophilus Capsule 100 mg PO DAILY cyanocobalamin (vitamin B-12) [Vitamin B-12] 500 mcg tablet 500 mcg PO DAILY fluticasone propion-salmeterol [Advair Diskus] 250-50 mcg/dose blister with device 1 inh inhalation BID famotidine 20 mg tablet 20 mg PO BID polyethylene glycol 3350 [Miralax] 17 gram/dose powder 17 g PO DAILY albuterol sulfate 90 mcg/actuation HFA aerosol inhaler 2 inh inhalation Q6H PRN (Reason: shortness of breath or wheezing) azithromycin [Zithromax Z-Manoj] 250 mg tablet See Rx Instructions .ROUTE .COMPLEX Qty: 6 0RF Rx Instructions: For 250 mg dose pack: take 500 mg today (day 1), then 250 mg for 4 days (days 2-5) amantadine HCl 100 mg tablet 100 mg PO BID benztropine 0.5 mg tablet 0.5 mg PO BID quetiapine [Seroquel] 300 mg tablet 700 mg PO DAILY lithium carbonate 150 mg capsule 150 mg PO BID Print Language: Stateless Referrals: MORGAN WOOTEN [Primary Care Provider] - 1 week Procedures ED Procedure Instructions Procedures Procedures: Procedure note: Laceration repair; the laceration above the patient's upper lip was infiltrated with 1% lidocaine and irrigated with copious normal saline irrigation. 8, 4-0 Ethilon sutures were placed into the wound edges with good wound edge approximation. Patient tolerated procedure well
[2024-01-14] MEDS: LIDOCAINE HCL 1% 100 MG/10 ML MDV INJ (06:37)
--- NOTE | 2024-01-14 07:45 | CT_ITS ---
The [address] [address] Patient Name: MARTÍNEZ ALMEIDA MRN: [id number] date: 1955 Sex: F Assigned Patient Location: ER Current Patient Location: ER Accession/Order Number: [id number] Exam Date: 01/14/2024 07:31 Report Date: 01/14/2024 08:03 At the request of: JOHN MARKER Procedure: CT cervical spine wo con PROCEDURE: CT cervical spine wo con COMPARISON: None. HISTORY: fall, head injury TECHNIQUE: Axial, Coronal, and Sagittal CT images obtained without IV contrast. Dose reduction techniques were achieved by using automated exposure control and/or adjustment of mA and/or kV according to patient size and/or use of iterative reconstruction technique. FINDINGS: PARASPINAL AREA: Normal with no visible mass. DISCS: Mild to moderate disc space narrowing most significant C5-C6 BONES: Normal alignment with no acute fracture or spondylolisthesis. Mild degenerative spondylosis and facet osteoarthropathy most significant C5-C6 OTHER: Negative. CT/CT cervical spine wo con IMPRESSION: Degenerative changes No acute abnormality Electronically authenticated by: RUSS COLORADO Date: 01/14/2024 08:03
--- NOTE | 2024-01-14 07:45 | XR_ITS ---
The [address] [address] Patient Name: MARTÍNEZ ALMEIDA MRN: [id number] date: 1955 Sex: F Assigned Patient Location: ER Current Patient Location: ER Accession/Order Number: [id number] Exam Date: 01/14/2024 07:31 Report Date: 01/14/2024 07:53 At the request of: JOHN MARKER Procedure: XR knee RT 3V PROCEDURE: XR knee RT 3V COMPARISON: None. HISTORY: fal, right knee pain FINDINGS: BONES:No fracture, acute abnormality, or significant arthropathy. SOFT TISSUES:Negative. No visible soft tissue swelling. EFFUSION:None visible. OTHER: Negative. XR/XR knee RT 3V IMPRESSION: No acute radiographic abnormality Electronically authenticated by: RUSS [place]OR[place] Date: 01/14/2024 07:53
--- NOTE | 2024-01-14 07:45 | XR_ITS ---
The [address] [address] Patient Name: MARTÍNEZ ALMEIDA MRN: [id number] date: 1955 Sex: F Assigned Patient Location: ER Current Patient Location: ER Accession/Order Number: [id number] Exam Date: 01/14/2024 07:31 Report Date: 01/14/2024 07:54 At the request of: JOHN MARKER Procedure: XR elbow RT min 3V PROCEDURE: XR elbow RT min 3V COMPARISON: None. HISTORY: fall, right elbow inury FINDINGS: BONES:No fracture, acute abnormality, or significant arthropathy. SOFT TISSUES:Negative. No visible soft tissue swelling. EFFUSION:None visible. OTHER: Negative. XR/XR elbow RT min 3V IMPRESSION: No acute fracture Electronically authenticated by: RUSS COLOR[place] Date: 01/14/2024 07:54
--- NOTE | 2024-01-14 07:45 | CT_ITS ---
The [address] [address] Patient Name: MARTÍNEZ ALMEIDA MRN: [id number] date: 1955 Sex: F Assigned Patient Location: ER Current Patient Location: ER Accession/Order Number: [id number] Exam Date: 01/14/2024 07:31 Report Date: 01/14/2024 08:00 At the request of: JOHN MARKER Procedure: CT head/brain wo con EXAMINATION: CT head/brain wo con, 01/14/2024 7:31 AM EDT HISTORY: fall, head injury COMPARISON: None. TECHNIQUE: CT scan of the head was performed without IV contrast. CT dose reduction technique was used, including Automated Exposure Control. FINDINGS: BRAIN: No edema, hemorrhage, mass, acute infarction, or inappropriate atrophy. CSF SPACES: No hydrocephalus, subarachnoid hemorrhage, or mass. Appropriate for age. SKULL: No fracture, mass, or other significant visible lesion. SINUSES: No significant mucosal thickening or fluid on the limited views. ORBITS: No appreciable abnormality on the limited views. OTHER: Negative CT/CT head/brain wo con IMPRESSION: No acute intracranial abnormality Electronically authenticated by: RUSS [place] Date: 01/14/2024 08:00
[2024-01-14 07:59] VITALS: BP 156/93; PULSE 55; O2SAT 98
--- NOTE | 2024-01-14 08:15 | ED.FALL1 ---
HPI HPI - Fall General Chief Complaint: Fall Stated Complaint: FALL Time Seen by Provider: 01/14/24 05:37 Source: patient and EMR Mode of arrival: ambulance Limitations: no limitations History of Present Illness HPI Narrative: 68-year-old female presented to the emergency department and was initially seen by Dr. Benitez and signed out to me after discussing the case with her thoroughly. Please see her full history and physical exam. Related Data Home Medications ?Medication ?Instructions ?Recorded ?Confirmed amantadine HCl 100 mg tablet 100 mg PO BID 03/11/23 04/22/23 benztropine 0.5 mg tablet 0.5 mg PO BID 03/11/23 04/22/23 lithium carbonate 150 mg capsule 150 mg PO BID 03/11/23 04/22/23 quetiapine 300 mg tablet (Seroquel) 700 mg PO DAILY 03/11/23 03/25/23 albuterol sulfate 90 mcg/actuation 2 inh inhalation Q6H PRN shortness 03/25/23 04/22/23 breath activated powder inhaler of breath or wheezing benzonatate 100 mg capsule 100 mg PO TID 03/25/23 04/22/23 calcium carbonate 500 mg-vitamin 1 tab PO DAILY 03/25/23 03/25/23 D3 5 mcg (200 unit) tablet (Oyster Shell Calcium-Vitamin D3) clonidine HCl 0.1 mg tablet 0.1 mg PO DAILY 03/25/23 04/22/23 docusate sodium 100 mg capsule 100 mg PO DAILY 03/25/23 04/22/23 famotidine 20 mg tablet 20 mg PO Q12H 03/25/23 04/22/23 fluticasone 250 mcg-salmeterol 50 1 inh inhalation Q12H 03/25/23 04/22/23 mcg/dose blistr powdr for inhalation (Wixela Inhub) fluticasone propionate 50 1 spray intranasal BID 03/25/23 03/25/23 mcg/actuation nasal spray,suspension (24 Hour Allergy Relief) folic acid 0.8 mg capsule 800 mcg PO DAILY 03/25/23 04/22/23 hydrocodone 5 mg-acetaminophen 325 1 tab PO Q6H PRN pain 03/25/23 03/25/23 mg tablet loratadine 10 mg tablet 10 mg PO Q24H 03/25/23 04/22/23 mecobalamin (vitamin B12) 5,000 5,000 mcg PO DAILY 03/25/23 03/25/23 mcg chewable tablet meloxicam 15 mg tablet 15 mg PO DAILY 03/25/23 04/22/23 polyethylene glycol 3350 17 17 g PO DAILY 03/25/23 03/25/23 gram/dose oral powder (Miralax) quetiapine 400 mg tablet,extended 400 mg PO DAILY 03/25/23 04/22/23 release 24 hr risperidone microspheres 25 mg/2 25 mg IM Q14D 03/25/23 04/22/23 mL intramuscular susp,ext release (Risperdal Consta) topiramate 25 mg tablet (Topamax) 25 mg PO BEDTIME 03/25/23 04/22/23 Lactobacillus acidophilus 100 mg PO DAILY 04/22/23 04/22/23 (Acidophilus capsule) albuterol sulfate 90 mcg/actuation 2 inh inhalation Q6H PRN shortness 04/22/23 04/22/23 aerosol inhaler of breath or wheezing cyanocobalamin (vitamin B-12) 500 500 mcg PO DAILY 04/22/23 04/22/23 mcg tablet (Vitamin B-12) famotidine 20 mg tablet 20 mg PO BID 04/22/23 04/22/23 fluticasone 250 mcg-salmeterol 50 1 inh inhalation BID 04/22/23 04/22/23 mcg/dose blistr powdr for inhalation (Advair Diskus) polyethylene glycol 3350 17 17 g PO DAILY 04/22/23 04/22/23 gram/dose oral powder (Miralax) quetiapine 100 mg tablet 100 mg PO BID 04/22/23 04/22/23 quetiapine 25 mg tablet 25 mg PO BID 04/22/23 04/22/23 Previous Rx's ?Medication ?Instructions ?Recorded azithromycin 250 mg tablet See Rx Instructions PO .COMPLEX #6 04/22/23 (Zithromax Z-Manoj) tabs Allergies Allergy/AdvReac Type Severity Reaction Status Date / Time aspirin Allergy Severe Unknown Verified 01/14/24 05:28 Barbiturates Allergy Severe Unknown Verified 01/14/24 05:28 fluoxetine Allergy Severe Unknown Verified 01/14/24 05:28 meperidine Allergy Severe Unknown Verified 01/14/24 05:28 Penicillins Allergy Severe Anaphylaxis Verified 01/14/24 05:28 codeine Allergy Unknown Verified 01/14/24 05:28 Sulfa (Sulfonamide AdvReac Mild Altered Verified 01/14/24 05:28 Antibiotics) Sense of Taste Opioid HPI Opioid Management Most Recent Pain and Opioid Data: Ur Phencyclidine Scrn Negative (NEGATIVE) 03/25/23 19:43 PFSH PFSH Social History Smoking status: Current every day smoker Exam Constitutional Vital Signs, click to edit/add: Last Vital Signs Temp 98.4 F 01/14/24 05:28 Pulse 55 L 01/14/24 07:59 Resp 18 01/14/24 07:59 BP 156/93 H 01/14/24 07:59 Pulse Ox 98 01/14/24 07:59 Course Vital Signs Vital signs: Vital Signs Temperature 98.4 F 01/14/24 05:28 Pulse Rate 58 L 01/14/24 05:28 Respiratory Rate 18 01/14/24 05:28 Blood Pressure 167/85 H 01/14/24 05:28 Temperature 98.4 F 01/14/24 05:28 Pulse Rate 55 L 01/14/24 07:59 Respiratory Rate 18 01/14/24 07:59 Blood Pressure 156/93 H 01/14/24 07:59 Pulse Oximetry 98 01/14/24 07:59 MDM - Fall MDM Narrative Medical decision making narrative: CAT scans and x-rays are negative. The wound has been repaired by Dr. Benitez and sutures are to be removed in a week. Treatment diagnosis and follow-up were discussed with the patient. Differential Diagnosis Differential diagnosis: Likely other (Contusions, fractures, intracranial hemorrhage, laceration) Imaging Data CT scan - head: Radiologist's impression: ITS Impressions Cervical Spine CT 01/14/24 07:45 IMPRESSION: Degenerative changes No acute abnormality Electronically authenticated by: RUSS COLORADO Date: 01/14/2024 08:03 Elbow X-Ray 01/14/24 07:45 IMPRESSION: No acute fracture Electronically authenticated by: RUSS [place] Date: 01/14/2024 07:[address] 01/14/24 07:45 IMPRESSION: No acute intracranial abnormality Electronically authenticated by: RUSS [place] Date: 01/14/2024 08:00 Knee X-Ray 01/14/24 07:45 IMPRESSION: No acute radiographic abnormality Electronically authenticated by: RUSS [place] Date: 01/14/2024 07:53 Discharge Plan Discharge Stand Alone Forms: Portal Instructions Chief Complaint: Fall Clinical Impression: Facial laceration, Fall from standing Patient Disposition: Home, Self-Care Time of Disposition Decision: 08:14 Condition: Good Mode of Transportation: Private Vehicle Prescriptions / Home Meds: No Action benzonatate 100 mg capsule 100 mg PO TID clonidine HCl 0.1 mg tablet 0.1 mg PO DAILY docusate sodium 100 mg capsule 100 mg PO DAILY famotidine 20 mg tablet 20 mg PO Q12H fluticasone propionate [24 Hour Allergy Relief] 50 mcg/actuation spray,suspension 1 spray intranasal BID Rx Instructions: administer into each nostril folic acid 0.8 mg capsule 800 mcg PO DAILY loratadine 10 mg tablet 10 mg PO Q24H meloxicam 15 mg tablet 15 mg PO DAILY calcium carbonate-vitamin D3 [Oyster Shell Calcium-Vit D3] 500 mg-5 mcg (200 unit) tablet 1 tab PO DAILY fluticasone propion-salmeterol [Wixela Inhub] 250-50 mcg/dose blister with device 1 inh INHALATION Q12H polyethylene glycol 3350 [Miralax] 17 gram/dose powder 17 g PO DAILY quetiapine 400 mg tablet extended release 24 hr 400 mg PO DAILY Risperdal Consta 25 mg/2 mL suspension,extended rel recon 25 mg IM Q14D topiramate [Topamax] 25 mg tablet 25 mg PO BEDTIME mecobalamin (vitamin B12) 5,000 mcg tablet,chewable 5,000 mcg PO DAILY albuterol sulfate 90 mcg/actuation aerosol powdr breath activated 2 inh inhalation Q6H PRN (Reason: shortness of breath or wheezing) hydrocodone-acetaminophen 5-325 mg tablet 1 tab PO Q6H PRN (Reason: pain) quetiapine 100 mg tablet 100 mg PO BID quetiapine 25 mg tablet 25 mg PO BID Acidophilus Capsule 100 mg PO DAILY cyanocobalamin (vitamin B-12) [Vitamin B-12] 500 mcg tablet 500 mcg PO DAILY fluticasone propion-salmeterol [Advair Diskus] 250-50 mcg/dose blister with device 1 inh inhalation BID famotidine 20 mg tablet 20 mg PO BID polyethylene glycol 3350 [Miralax] 17 gram/dose powder 17 g PO DAILY albuterol sulfate 90 mcg/actuation HFA aerosol inhaler 2 inh inhalation Q6H PRN (Reason: shortness of breath or wheezing) azithromycin [Zithromax Z-Manoj] 250 mg tablet See Rx Instructions .ROUTE .COMPLEX Qty: 6 0RF Rx Instructions: For 250 mg dose pack: take 500 mg today (day 1), then 250 mg for 4 days (days 2-5) amantadine HCl 100 mg tablet 100 mg PO BID benztropine 0.5 mg tablet 0.5 mg PO BID quetiapine [Seroquel] 300 mg tablet 700 mg PO DAILY lithium carbonate 150 mg capsule 150 mg PO BID Print Language: Turkish Instructions: Laceration (ED) Additional Instructions: Sutures to be removed in 1 week. Referrals: MORGAN WOOTEN [Primary Care Provider] - 1 week
[2024-01-14 09:48] VITALS: BP 147/88; PULSE 88; O2SAT 98
== END 2024-01-14 09:49 | disposition home or self-care (01) ==
PROVIDERS: Emergency Provider Emergency Medicine; PCP Family Medicine
DX: S01.81XA Laceration without foreign body of other part of head, initial encounter (principal); W19.XXXA Unspecified fall, initial encounter; F17.200 Nicotine dependence, unspecified, uncomplicated
CPT/HCPCS: 12011; 70450; 72125; 73080; 73562; 99284

== ENCOUNTER 2024-05-29 13:19 | Outpatient (OUT) | payer MEDICARE, MEDICAID, SELFPAY ==
--- NOTE | 2024-05-29 13:21 | MM_ITS ---
Patient Name: MARTÍNEZ ALMEIDA MR#: [id number] : 1955 Exam Date: 05/29/2024 Ordering Doctor: Yen Acevedo RADIOLOGY REPORT PROCEDURE: MM SCREENING MAMMO BI COMPARISON: MM TOMOSYNTHESIS SCREENING BI, 05/28/2023. INDICATIONS: Screening Calculator Name NCI Breast Cancer Risk Assessment Tool 5 Year Breast Cancer Risk 3.70% Lifetime Breast Cancer Risk 12.30% Personal Breast Cancer No Personal Ovarian Cancer No Treatments None Family Cancers Mother with breast cancer at age ~60. LOCATION: [facility] BREAST COMPOSITION: The breasts are heterogeneously dense,which may obscure small masses. FINDINGS: DIAGNOSTIC CATEGORY 0--INCOMPLETE: NEED ADDITIONAL IMAGING EVALUATION. RIGHT BREAST: Increased density within the central right breast on the CC view compared to prior study. Technologist notes that the patient was imaged in a seeding position for patient's safety which may account for slight differences in positioning and different appearance. Consider follow-up diagnostic imaging of right breast and ultrasound evaluation if clinically indicated. LEFT BREAST: No significant suspicious finding. Scattered benign-appearing lymph nodes are present. No significant change has occurred. RECOMMENDATIONS: ADDITIONAL MAMMOGRAPHIC VIEWS REQUIRED: RIGHT BREAST - RIGHT CRANIOCAUDAL SPOT MAGNIFICATION VIEW - RIGHT OBLIQUE SPOT MAGNIFICATION VIEW - ULTRASOUND: RIGHT BREAST PLEASE NOTE: A NORMAL MAMMOGRAM DOES NOT EXCLUDE THE POSSIBILITY OF BREAST CANCER. A CLINICALLY SUSPICIOUS PALPABLE LUMP SHOULD BE BIOPSIED. Dictated by: Wood Colon M.D. on 06/01/2024 at 15:35 Approved by: Wood Colon M.D. on 06/01/2024 at 16:01
== END 2024-05-29 13:20 | disposition home or self-care (01) ==
LOC: MAMMO 13:19
PROVIDERS: PCP Family Medicine; Visit Provider Nurse Practitioner Family
DX: Z12.31 Encounter for screening mammogram for malignant neoplasm of breast (principal); Z80.3 Family history of malignant neoplasm of breast; R92.8 Other abnormal and inconclusive findings on diagnostic imaging of breast
CPT/HCPCS: 77067

== ENCOUNTER 2024-05-31 16:09 | Emergency (ER) | payer MEDICARE, MEDICAID, SELFPAY ==
[2024-05-31] VITALS (25 sets, daily range): BP systolic 107–140; BP diastolic 69–81; PULSE 64–83; TEMP 36.6; O2SAT 91–97
--- NOTE | 2024-05-31 16:19 | CT_ITS ---
The [address] [address] Patient Name: MARTÍNEZ ALMEIDA MRN: [id number] date: 1955 Sex: F Assigned Patient Location: ER Current Patient Location: ED.MAIN Accession/Order Number: [id number] Exam Date: 05/31/2024 16:20 Report Date: 05/31/2024 16:37 At the request of: TIFFANI GARNER Procedure: CT stroke head/brain wo con EXAM: CT stroke head/brain wo con HISTORY: left side facial droop COMPARISON: CT brain 01/14/2024. TECHNIQUE: Axial CT scans through the head were obtained without IV contrast administration. Dose reduction techniques were achieved by using: automated exposure control and/or adjustment of mA and /or kV according to patient size and/or use of iterative reconstruction technique. FINDINGS: There is no acute intracranial hemorrhage or abnormal extra-axial fluid collection. No mass effect or midline shift is seen. There is no evidence of large acute territorial infarction. There is no hydrocephalus. To the limit of CT, the posterior fossa appears unremarkable. The calvaria and extra cranial soft tissues are unremarkable. The visualized orbits show no abnormality. The visualized paranasal sinuses show no air-fluid level. There is mild mucosal thickening of partially visualized left maxillary and left sphenoid sinus. Mastoid air cells are clear. CT/CT stroke head/brain wo con IMPRESSION: No acute intracranial process. Electronically authenticated by: ADRIAN UNLU Date: 05/31/2024 16:37
--- OUTSIDE RECORDS SUMMARY | 2024-05-31 16:22 | XMS_ITS | CCD ---
Author Organization [facility] Care Team Providers Care Mule Spinner Name Role Phone Karla Clark Unavailable Unavailable Sprout Unavailable Unavailable Beavers Kristine Unavailable Unavailable Amber, Karla Unavailable Unavailable Amber, Karla Unavailable Unavailable JORGE Unavailable Unavailable Karla Clark Primary Care Physician Unavailab le Sprout Unavailable Unavailable Beavers, Kristine Unavailable Unavailable Amber, Karla Unavailable Unavailable Karla Clark Primary Care Provider Karla Clark Primary Care Provider [phone] Karla Clark Primary Care Provider [phone] Karla Clark Primary Care Provider Amber MEMBERSHIP COUNSELOR - Karla CROOKS M Primary Care Provider Karla Clark CNP Primary Care Provider Amber CROOKS Karla Unavailable Roseline Meraz Primary Care Physician Amber STEVENS - Karla CROOKS M Primary Care Provider Amber STEVENS - Karla CROOKS M Primary Care Provider Amber CROOKS Karla Primary Care Provider Emory Adame Unavailable DO Emory Adame Attending Provider RODNEY Clark Primary Care Provider NO FAMILY, PHYSICIAN Primary Care Provider Unava ilable MISC, DR LINDQUIST Admitting Unavailable MISC, DR LINDQUIST Consulting Unavailable MISMikala, DR LINDQUIST Attending Unavailable MS KARLA CLARK Primary Care Unavailable REKHA GALICIA Admitting Unavailable REKHA GALICIA Consulting Unavailable REKHA GALICIA Attending Unavailable AMBER, KARLA Primary Care Unavailable REKHA GALICIA Admitting Unavailable REKHA GALICIA Consulting Unavailable REKHA GALICIA Attending Unavailable AMBER, MS KARLA Primary Care Unavailable AMBER, MS KARLA Primary Care Unavailable DENISHA ., BRADY Admitting Unavailable DENISHA Torrez, BRADY Attending Unavailable DR HÉCTOR HO Consulting Unavailable DENISHA ., BRADY Consulting Unavailable Amber, MEMBERSHIP COUNSELOR Karla M Primary Care Provider [phone] DO Emory Adame Attending Provider MD Monster Davis Attending Provider [phone] KARLA CLARK M Primary Care Unavailable HÉCTOR TURNER Referring Unavailable AMBER, KARLA M Primary Care Unavailable SHE SPENCER Referring Unavailabl e SHE SPENCER Referring Unavailabl e AMBER, KARLA M Primary Care Unavailable Amber, MEMBERSHIP COUNSELOR Karla M Primary Care Provider [phone] Juaquin, DO Crespo Attending Provider MD Joe Davis Admit Provider MD Joe Davis Attending Provider NON STAFF Primary Care Provider UnavailTAWANNA Baker Other Provider Unavailable TAWANNA Pizarro Other Provider Unavailable TAWANNA Hudson Other Provider Unavailable TAWANNA Sams Other Provider Unavailable TAWANNA Galvan Other Provider Unavailable Olamide RN Ragini Other Provider Unavailable Dials, MEMBERSHIP COUNSELOR Ana Alexey Other Provider [phone] DO Barbie Choi Other Provider MD Braden Dill Other Provider [phone] DO Chandu Villafana Other Provider MD Thomas Mendez Other Provider MD Kathrine Naik Other Provider Chilango, ANP-BC Mariana Other Provider MD Angel Haley Other Provider MD Link Salazar Other Provider MD Rosa Lowe Other Provider MD Brad Peng Other Provider DO Khalif Pettit Other Provider MD Sherif Campbell Other Provider MD Francisco Keene Other Provider RIC Aguilar-C Roseline Ponce Other Provider MD Jaswinder Robert [...] Mccann Other Provider YANDEL DANIEL Referring Unavailable YANDEL DANIEL Referring Unavailable SCHARPF, YANDEL Referring Unavailable Unavailable Primary Care Provider Unavailabl e NON STAFF Primary Care Provider Unavailabl e DO Nimesh Westfall Emergency Provider [phone] MD Joe Davis Admit Provider MD Joe Davis Attending Provider DO Alannah James Attending Provider [phone] Lorenza HUNG, Deepti Hendricks Unavailable [phone] SCHARPF, YANDEL Attending Unavailable SCHARPF, YANDEL Referring Unavailable SCHARPF, YANDEL Attending Unavailable SCHARPF, YANDEL Admitting Unavailable SCHARPF, YANDEL Attending Unavailable SCHARPF, YANDEL Attending Unavailable SCHARPF, YANDEL Attending Unavailable RODNEY Clark Primary Care Provider MD Joe Davis Attending Provider NON STAFF Primary Care Provider UnavailHANDY Garcia Emergency Provider [phone] MD Joe Davis Admit Provider Amber CROOKS Karla Unavailable DAKOTA MACK Attending Unavailable KARLA CLARK Referring Unavailable JOHAN HOWELL Attending Unavailable MURCEK, ALANNAH Torres Attending Unavailable JOHAN HOWELL Referring Unavailable MURCEK, ALANNAH Torres Attending Unavailable MURCEK, ALANNAH W Referring Unavailable MURCEK, ALANNAH W Attending Unavailable MURCEK, ALANNAH W Attending Unavailable LUCY GILBERT Attending Unavailable VIDA CULP Referring Unavailable LUCY GILBERT Attending Unavailable Amber HUNG, Karla Unavailable Kentrell Hurley DO Primary Care Provider NON STAFF Primary Care Unavailable Jacob, Alannah Attending Unavailable Alannah James Admitting Unavailable Karla Clark Primary Care Unavailable Joe Davis Attending Unavailab le Joe Davis Admitting Unavailab le Reynaldo Kraft Attending Unavailable Derrek Davisrahman Admitting Unavailab le NON STAFF Primary Care Unavailable Reynaldo Kraft Attending Unavailable Susan, Joe Admitting Unavailab le NON STAFF Primary Care Unavailable Susan, Joe Admitting Unavailab le Susan, Joe Attending Unavailab le NON STAFF Primary Care Unavailable Cecilia Soares Consulting Unavailable Florencia Pizarro Consulting Unavailable Stacey Hudson Consulting Unavailable Ann-Marie Sams Consulting Unavailable Lisseth Galvan Consulting Unavailable Ragnii Quiñonez Consulting Unavailable Chris Adam Consulting Unavailable [...] Bonilla Consulting Unavailable Scottie Quinn Consulting Unavailable Maddy Hallman Consulting Unavailable Jose Huang Consulting Unavailable DaromaMonico kimballaylona Blackburn Consulting Unavailable Leny Spencer Consulting Unavailable Winnie Jenkins Consulting Unavailable Greg Ocampo Consulting Unavailable Loy Rivers Consulting Unavailable Ludwig Amador Consulting Unavailable Pinky Jewell Consulting Unavailable London Mccann Consulting Unavailable Alice Grimaldo Consulting Unavailable Karla Garrido APRN, CNP Primary Care Provider YANELY MONDRAGON Attending Unavailable KARLA CLARK Primary Care Unavailable SAMI JASSO Attending Unavailable KARLA CLARK Primary Care Unavailable Allergies Allergy Classification Reported Allergen(s) Allergy Type Date of Onset Reaction(s) Facility Aluminum aspirin (1 source) Aluminum aspirin Drug Allergy 013 [facility] Aspirin (1 source) Aspirin Drug Allergy [facility] Barbiturates (1 source) Barbiturates Drug Allergy 014 Other (See Comments) [facility] Corticosteroids (1 source) predniSONE Drug Allergy [facility] NSAIDs (1 source) Ibuprofen Drug Allergy [facility] Opioid Agonists (3 sources) Codeine Drug Allergy unknown [facility] Penicillins (antibiotic) (2 sources) Penicillins Drug Allergy 013 Turning blue [facility] Serotonin Reuptake Inhibitors (SSRIs) (3 sources) FLUoxetine Drug Allergy 014 Feels weird [facility] Sulfamethoxazole / Trimethoprim (2 sources) Sulfamethoxazole / Trimethoprim Drug Allergy odor [facility] Sulfonamides (antibiotic) (2 sources) Sulfonamides (Antibiotic) Drug Allergy odor [facility] (20 sources) aspirin; Translations: [aspirin] Drug Allergy 023 shock [facility] Comment on above: 04/10/2016 - angelo (20 sources) codeine; Translations: [Codeine] Drug Allergy 013 unknown [facility] (20 sources) Penicillins; Translations: [PENICILLINS] Allergy to substance (disorder) 013 Turning blue, Other: See Comments [facility] (20 sources) sulfamethoxazole / trimethoprim; Translations: [Bactrim DS] Drug Allergy odor [facility] (20 sources) Sulfonamides (Antibiotic); Translations: [Sulfa sensitivity] Allergy to substance (disorder) odor [facility] (20 sources) -Other; Translations: [-Other] Allergy to substance (disorder) Barbiturates, and amphetamines [facility] (6 sources) -No Known Food Allergies Allergy to substance (disorder) [facility] (20 sources) -No Environmental Allergies; Translations: [-No Environmental Allergies] Allergy to substance (disorder) [facility] (4 sources) Aspirin; Translations: [aspirin] Drug Allergy 023 Tremor (finding), Other: See Comments [facility] Comment on above: 04/10/2016 - ke (20 sources) Aluminum aspirin Drug Allergy [place] (20 sources) Barbiturates; Translations: [BARBITURATES] Propensity to adverse reactions to drug Other (See Comments) [place] (20 sources) FLUoxetine; Translations: [fluoxetine] Drug Allergy Feels weird, Unknown [place] (20 sources) FLUoxetine Drug Allergy [place] (20 sources) Ibuprofen; Translations: [IBUPROFEN] Drug Allergy Unknown [place] (20 sources) Meperidine; Translations: [meperidine] Drug Allergy Unknown [place] (20 sources) predniSONE Drug Allergy [place] (20 sources) Sulfamethoxazole / Trimethoprim; Translations: [sulfamethoxazole-t rimethoprim] Drug Allergy [place] (20 sources) Sulfonamides (Antibiotic) Propensity to adverse reactions to drug [place] (20 sources) Amphetamines Propensity to adverse reactions to drug [place] (20 sources) Metals Allergy to substance [facility] (20 sources) Aluminum-Containing Compounds Propensity to adverse reactions to drug [place] (1 source) Penicillin; Translations: [penicillin] Drug Allergy Cyanosis (finding) [facility] (1 source) Sulfonamides (Antibiotic); Translations: [sulfa drugs] Drug allergy [facility] (13 sources) Sulfonamides (Antibiotic) Propensity to adverse reactions to drug 013 Intolerance [facility] Work Phone: (7 sources) Amphetamine aspartate / Amphetamine Sulfate / Dextroamphetamine saccharate / Dextroamphetamine Sulfate Drug Allergy pain Nanalysis [facility] [employer] Other (12 sources) Penicillin G Drug Allergy 024 anaphylaxis [facility] (7 sources) Sulf-10 Drug allergy odor producing [facility] [employer] Other (15 sources) Sulfonamides (Antibiotic); Translations: [SULFA (SULFONAMIDE ANTIBIOTICS)] Allergy to substance nausea; strange odor , nausea; strange odor , odor producing [facility] (7 sources) Barbiturate Drug allergy Unknown [facility] (7 sources) Amphetamine Drug Allergy pain [facility] (2 sources) Aspirin Drug Allergy [facility] (2 sources) Barbiturates Drug allergy (disorder) [facility] (2 sources) FLUoxetine Drug Allergy [facility] (1 source) FLUoxetine Drug Allergy [facility] (1 source) Ibuprofen Drug Allergy [facility] (1 source) Meperidine Drug Allergy [facility] (1 source) predniSONE Drug Allergy [facility] (2 sources) Sulfamethoxazole / Trimethoprim Drug Allergy [facility] (1 source) Sulfonamides (Antibiotic) Drug allergy (disorder) [facility] (8 sources) Sulfamethoxazole; Translations: [sulfamethoxazole] Drug Allergy Unknown Reaction [facility] (16 sources) Trimethoprim; Translations: [trimethoprim] Drug Allergy Unknown Reaction [facility] (8 sources) Barbiturate Drug Allergy [facility] (8 sources) Prednisone Propensity to adverse reactions [facility] (11 sources) traZODone; Translations: [trazodone] Drug Allergy restlessness [facility] (1 source) Amphetamine Drug Allergy [facility] (1 source) Aspirin Drug Allergy [facility] (1 source) Barbiturates Drug allergy (disorder) [facility] (1 source) FLUoxetine Drug Allergy [facility] (1 source) Ibuprofen Drug Allergy [facility] (1 source) Meperidine Drug Allergy [facility] (1 source) Penicillin Drug Allergy [facility] Medications Current Medications Medication [...] 12, 2023 5:54am Start: 02-14-2022 End: 09-14-2022 Acetaminophen ER 650 MG Oral Tablet Extended Release 02/14/2022 Provider: Karla Clark CNP Start: 07-31-2018 End: 11-03-2021 Tylenol 8 Hour Arthritis Amadeo n 650MG Oral Tablet Extended Release 08/18/2018 - 08/25/2019 Provider: Karla Clark CNP Start: 06-26-2016 End: 11-03-2021 Tylenol 8 Hour Arthritis Amadeo n 650MG Oral Tablet Extended Release 07/31/2018 - 09/04/2018 Provider: take 1 tablet by mouth once acet aminophen (Tylenol 8 Hour) 650 MG ER tablet Take 1 tablet by mouth every 12 (twelve) hours if needed Active Acetaminophen Ac tive take 1 tablet by [...] Oral Tablet 11/17/2020 Provider: Karla Clark CNP [id number] 200 actuat albuterol 0.09 mg/actuat metered dose inhaler (20 sources) beta2-Adrenergic Agonist Start: 03-26-2023 albut johana HFA 90 mcg/act inhaler Q6H 03/26/2023 Active Start: 03-26-2023 take 1 puff(s) by in halation every six hours Albuterol Sulfate Active 2 [...] Start: 05-22-2017 End: 05-22-2017 VENTOLIN HFA 90MCG/ACTUAT ME SC 05/22/2017 - 05/22/2017 Provider: Start: 05-29-2016 [...] Start: 01-05-2016 End: 01-05-2016 VENTOLIN HFA 90MCG/ACTUAT ME SC 01/05/2016 - 01/05/2016 Provider: Start: 01-05-2016 [...] route every 6 hours as needed albuterol sulfat e HFA (PROVENTIL;VENTOLIN;PROAIR) 108 (90 Base) MCG/ACT inhaler 1 puff as needed Active albuterol HFA 90 mcg/act inhaler Inhale 1 puff Active albuterol HFA (P ROVENTIL HFA, VENTOLIN HFA) 90 mcg/actuation inhaler Inhale 1 Puff as instructed as needed. 0 Active Albuterol Sulfat e HFA Active Comment on above: Inhale 1 Puff as ins tructed as needed. amantadine hydrochloride 100 mg oral capsule (20 sources) Influenza A M2 Protein Inhibitor Start: 04-23-2024 take 1 dose by mouth once 100 mg, Oral, ONCE, 1 dose, On Yasmine 04/23/24 at 2200 Start: 03-28-2023 take 1 capsule by [facility] in the morning amantadine (Symmetrel) 100 MG capsule Take 100 mg by mouth in the morning and 100 mg in the evening. 03/28/2023 Active Start: 09-11-2022 amantadine (Sy mmetrel) 100 MG tablet Twice daily 09/11/2022 Active Start: 06-28-2018 End: 05-02-2020 AMANTADINE HCL 100 MG [facility] 06/28/2018 - 05/02/2020 Provider: Start: 06-28-2018 End: 06-28-2018 AMANTADINE HCL 100 MG [facility] 06/28/2018 - 06/28/2018 Provider: Start: 06-28-2018 End: 06-28-2018 AM[facility]AD[facility] HCL [facility] 06/28/2018 - 06/28/2018 Provider: Start: 08-24-2012 End: 05-06-2020 Amantadine HCl 100MG Oral Ca psule 07/31/2018 - 05/06/2020 Provider: take 1 tablet by [facility] twice daily Amantadine HCl 100 MG TABS Take 100 mg by mouth 2 times daily. 0 Active End: 09-17-2017 take 1 capsule by mouth once daily as needed amantadine HCl 100 mg oral capsule 09/17/2017 take 1 capsule (100 mg) by oral route once daily prn Dosage Change Comment on above: Take 100 mg by mouth two times a day. amylase [id number] unt / lipase 9000 unt / protease [id number] unt oral capsule (17 sources) take 1 capsule by mouth two times weekly Digestive Enzymes (ACIDOLL) CAPS Take by mouth Twice a Week Active Digestive Enzyme s (Bevitrol) capsule Take 1 capsule by mouth Active take 1 capsule by [facility] once daily at mealtime gazbdo-rfuaevqt-qxysljr (ENZADYNE) 9,000-112,500- 112,500 unit capsule Take 1 capsule by mouth daily with food. 0 Active Comment on above: Take 1 capsule by mo ut daily with food. B12 Folate 800-800 MCG Oral Capsule (3 sources) Start: 03-16-2020 B12 Folate 800-800 MCG Oral Capsule 03/16/2020 Provider: Karla Clark CNP benzonatate 200 mg oral capsule (20 sources) Non-narcotic Antitussive Start: 02-28-2023 End: 05-22-2023 benzonatate (Tessalon) 200 MG capsule 02/28/2023 Active Start: 11-03-2021 End: 05-22-2023 take 1 capsule by mouth in the morning benzonatate (Tessalon) 100 MG capsule Take 100 mg by mouth in the morning. 02/28/2023 Active Start: 11-19-2019 End: 05-06-2020 Tessalon Perles 100 MG Oral Capsule 11/19/2019 - 05/06/2020 Provider: Karla Clark CNP Start: 03-05-2019 End: 04-15-2019 Tessalon Perles 100 MG Oral Capsule 03/05/2019 - 04/15/2019 Provider: Karla Clark CNP Comment on above: Take 100 mg by mouth once daily. benztropine mesylate 0.5 mg oral tablet (20 sources) Anticholinergic, Antihistamine Start: 04-23-2024 take 0.5 mg by mouth once 0.5 mg, Oral, ONCE, 1 dose, On Yasmine 04/23/24 at 2200 Start: 09-11-2022 take 1 tablet by emiliano in the morning benztropine (Cogentin) 0.5 MG tablet Take 0.5 mg by mouth in the morning and 0.5 mg in the evening. 09/11/2022 Active Start: 07-31-2018 End: 05-06-2020 take 0.5 mg by mouth twice daily Benztropine Active 0. 5 MG PO Twice daily September 11, 2022 [...] oral solution (20 sources) alpha-Adrenergic Agonist, Uncompetitive E-cnagxe-J-aspartate Receptor Antagonist, Sigma-1 Agonist Start: 09-04-2018 Bromfed [...] Take 10 ml every 6 hours PRN. Active take 10 mL by mouth every six hours as needed BROMPHENIRAMINE-PSEUDOEPH PO Take by emiliano th Take 10 ml every 6 hours PRN. 0 Active Calcium 600+D Plus Minerals 600-400 MG-UNIT Oral Tablet (4 sources) Start: 08-14-2023 Calcium 600+D Plus Minerals 600-400 MG-UNIT Oral Tablet 08/14/2023 Provider: Karla Clark CNP Calcium 600+D3 600-400 MG-UN IT Oral Tablet (3 sources) Start: 03-16-2020 Calcium 600+D3 600-400 MG-UNIT Oral Tablet 03/16/2020 Provider: Karla Clark CNP calcium carbonate 1250 mg or al tablet (20 sources) Start: 06-22-2023 Oyster Shell C alcium 500 MG tablet 09/16/2023 Active Start: 06-22-2023 End: 07-22-2023 take 1 tablet by mouth in the morning calcium carbonate (Os-Rl) 1250 (500 Ca) MG tablet Take 1,250 mg by mouth in the morning. 0 06/22/2023 07/22/2023 Active Start: 06-28-2018 End: 06-28-2018 CALCIUM CARBONATE 500 mg calcium(1,250 MG) MIS 06/28/2018 - 06/28/2018 Provider: End: 01-11-2016 take [...] citrate-vitamin D (CITRACAL+D) 315-200 MG-UNIT per tablet Calcium Oyster Shell 1250 (500 Ca) MG Oral Tablet (1 source) Start: 024 Calcium Oyster Shell 1250 (500 Ca) MG Oral Tablet 01/27/2024 Provider: Carpal Tunnel Wrist Stabilizer Miscellaneous (12 sources) Start: Carpal Tunnel Wrist Stabilizer Miscellaneous 07/23/2019 Provider: Karla Clark CNP ciprofloxacin 500 mg oral tablet (20 sources) Quinolone Antimicrobial Start: End: take 1 tablet by mouth in the morning ciprofloxacin (Cipro) 500 MG tablet Take 500 mg by mouth in the morning and 500 mg before bedtime. 08/15/2023 Active Start: 10-25-2015 End: 05-02-2020 Cipro 500 MG OR TABS 016 - 07/23/2019 Provider: Start: 10-25-2015 End: 05-02-2020 Cipro 500 MG OR TABS 016 - 07/23/2019 Provider: clindamycin 20 mg/ml vaginal cream (10 sources) Lincosamide Antibacterial Start: 02-06-2023 clindamycin (CLEOCIN ) 2 % vaginal cream Place vaginally nightly. For 5 nights 40 g 02/06/2023 Active Start: 02-06-2023 clindamycin (C leocin) 2 % vaginal cream Place vaginally nightly. For 5 nights 02/06/2023 Active clobetasol propionate 0.0005 mg/mg topical ointment (20 sources) Corticosteroid Start: 02-04-2018 clobetasol (TEMOVATE) 0.05 % ointment Indications: Acute vaginitis Apply topically 2 times daily. 1 Tube 1 02/04/2018 Active cloNIDine hydrochloride 0.1 mg oral tablet (20 sources) Central alpha-2 Adrenergic Agonist Start: 12-14-2021 take 1 tablet by mouth in the morning cloNIDine (Catapres) 0.1 MG tablet Take 0.1 mg by mouth in the morning. 09/11/2022 Active Start: 02-03-2016 End: 07-28-2021 cloNIDine HCl 0.1 MG OR TABS 02/25/2017 - 05/02/2020 Provider: cloNIDine 0.1 MG /24HR 1 patch to skin Transdermal Active Comment on above: Take 0.1 mg by mouth once daily. [facility] Mucus DM Extended Release 30-600 MG Oral Tablet Extended Release 12 Hour (1 source) Start: 01-27-20 take 30-600 mg by mouth every twelve hours [facility] Mucus DM Extended Release 30-600 MG Oral Tablet Extended Release 12 Hour 01/27/2024 Provider: dextromethorphan hydrobromide 5 mg / guaiFENesin 100 mg oral granules (20 sources) Uncompetitive L-ifdcuf-J-aspartate Receptor Antagonist, Sigma-1 Agonist Start: 08-15-19 Dextromethorphan -guaiFENesin 5-100 MG pack Every 12 hours 08/15/2023 Active Start: 08-15-2023 take 1 tablet by emiliano th every twelve hours Dextromethorphan-Guaifenesin (Mucus Dm) 30-600 [...] 100 mg by mouth in the morning. 03/12/2023 Active Start: 08-02-2021 End: 11-19-2022 Colace [...] morning and 20 mg in the evening. 09/11/2022 Active Start: 09-22-2019 End: 11-19-2022 Famotidine 20 MG Oral Tablet 09/14/2020 - 12/20/2021 Provider: Karla Clark CNP Famotidine (PEPC ID PO) Take by mouth OTC Pepcid daily. 0 Active Comment on above: Take 20 mg by mouth two times a day. fluticasone propionate 0.05 mg/actuat metered dose nasal spray (20 sources) Corticosteroid Start: 03-26-2023 fluticasone (Flonase) 50 MCG/ACT nasal spray Twice daily 03/26/2023 Active Start: 03-26-2023 take 1 spray(s) [...] nasal spray 2 sprays in the morning. Active take 2 spray(s) nasa l route once daily Fluticasone Furoate 27.5 mcg/actuation nasal spray Use 2 Sprays in each nostril once daily. 0 Active take 1 spray(s) nasa l [...] morning and 1 puff in the evening. 03/28/2023 Active Start: 03-28-2023 take 1 puff(s) by in halation twice daily WIXELA INHUB 250-50 mcg/dose inhaler Inhale 1 Puff as instructed two times a day. 0 03/28/2023 Active Start: 03-28-2023 Fluticasone Pr [...] daily March 12, 2023 12:00am Start: 09-21-2022 WIXELA INHUB 2 50-50 MCG/ACT AEPB diskus inhaler 07/21/2023 Active take 1 puff(s) by in halation twice [...] 800 mcg by mouth in the morning. 03/26/2023 Active Start: 09-11-2022 End: 03-12-2023 take [...] eye. 0 Active Lactobacillus (20 sources) Lactobacillus (A CIDOPHILUS PROBIOTIC PO) Take by mouth 2 times daily Active Lactobacillus (A CIDOPHILUS PROBIOTIC PO) Take by mouth 2 times daily 0 Active levothyroxine sodium 0.112 mg oral tablet (20 sources) l-Thyroxine Start: 07-31-2023 Levothyroxine Sodium 112 MCG Oral Tablet 07/31/2023 Provider: Start: 06-22-2023 End: 09-20-2023 take 1 tablet by mouth once daily before breakfast levothyroxine (SYNTHROID) 112 MCG tablet Take 1 tablet by mouth every morning (before breakfast) 06/22/2023 Active Comment on above: Take 1 tablet by emiliano th daily before breakfast. lithium carbonate 300 mg oral tablet (20 sources) Start: 04-23-2024 300 mg, Oral, ONCE, 1 dose, On Yasmine 04/23/24 at 2200, Maintain adequate fluid and sodium intake Start: 10-08-2023 [place] Carbon ate 300 MG Oral Tablet 10/08/2023 Provider: Start: 08-20-2023 take 300 mg by mouth twice daily [place] Carbonate Active 300 MG PO Twice daily August 20, 2023 12:00am Start: 09-11-2022 End: 10-15-2023 lithium 150 MG capsule Take 150 mg by mouth 09/11/2022 Active Start: 09-11-2022 take 150 mg by mouth once daily in the morning [place] Carbonate Active 150 MG PO Every morning September 11, 2022 12:00am Start: 09-11-2022 End: 03-12-2023 take 300 mg by mouth once daily at bedtime [place] Carbonate Discontinued 300 MG PO Daily at bedtime September 11, 2022 12:00am March 12, 2023 5:59am Start: 06-28-2018 End: 02-21-2023 [place] Carbonate 300MG Oral Tablet 07/31/2018 - 02/21/2023 [...] by mouth twice daily in the evening [place] Carbonate ER 300 MG 1 tablet am [...] 10 mg by mouth in the morning. 09/11/2022 Active Loratadine (CLAR ITIN PO) Take by mouth daily Active Loratadine (CLAR ITIN PO) Take by mouth daily 0 Active Comment on above: Take 10 mg by mouth once daily. LORazepam 1 mg oral tablet (1 source) Benzodiazepine Start: 01-03-20 11 take 2 tablets by mouth once daily [...] tablet (20 sources) Nonsteroidal Anti-inflammatory Drug Start: 09-10-19 take 1 tablet by mouth once daily meloxicam (Mobic) 15 MG tablet Take 15 mg by mouth Daily 09/10/2023 Active Start: 06-18-2022 End: 11-19-2022 meloxicam (MOBIC) 15 MG tabl et 08/11/2022 Active Comment on above: Take 15 mg by mouth once daily. 24 hr nicotine 0.875 mg/hr transdermal system (20 sources) Cholinergic Nicotinic Agonist Start: 12-16-2023 Nicotine 21 MG/24HR Transdermal Patch 24 Hour 12/16/2023 Provider: Karla Clark CNP Start: 06-28-2018 End: 05-02-2020 NICOTINE 14 MG/24 [...] sources) Nitrofuran Antibacterial Start: 03-27-2023 End: 05-22-2023 nitrofurantoin, macrocrystal-monohydrate, (Macrobid) 100 MG capsule 03/28/2023 Active Start: 08-31-2019 End: 09-22-2019 Macrobid 100 MG Oral Capsule 08/31/2019 - 09/22/2019 Provider: Karla Amber UPPER INSPECTOR nystatin [id number] unt/ml topical cream (20 sources) Polyene Antifungal Start: 08-16-2022 nystatin (M YCOSTATIN) [id number] UNIT/GM cream Indications: Cutaneous candidiasis Apply topically 2 times daily. 30 g 1 08/16/2022 Active Start: 08-16-2022 End: 03-26-2023 Nystatin Active 1 APPLIC TOP ICAL Twice daily August 15, 2023 12:00am Nystatin Active Comment on above: Apply to affected ar ea two times a day. OLANZapine 15 mg oral tablet (20 sources) Atypical Antipsychotic Start: take 1 tablet by mouth at bedtime OLANZapine (ZyPREXA) 15 MG tablet Take 15 mg by mouth at bedtime 11/04/2023 Active Start: 08-15-2023 End: 08-20-2023 take 2 tablets by mouth once daily at bedtime Olanzapine (Zyprexa) 5 mg tablet Discontinued 10 MG PO Daily at bedtime August 15, 2023 12:00am August 20, 2023 8:53am Start: 03-28-2023 End: 10-15-2023 OLANZapine (ZyPREXA) 5 MG ta blet Take 5 mg by mouth every 12 (twelve) hours if needed 03/28/2023 Active Start: 03-28-2023 End: 12-16-2023 take 5 mg by mouth every twelve hours Olanzapine Discontinued 5 MG PO Every 12 hours 30 March 28, 2023 12:00am December 16, 2023 [...] Ordered oxyCODONE hydrochloride 5 mg oral tablet (19 sources) Opioid Agonist Start: 06-23-2023 oxyCODONE (Roxicodone) 5 MG immediate release tablet 06/23/2023 Active Start: 09-13-2022 End: 03-12-2023 take 5 mg by mouth every four to six hours Oxycodone Discontinued 5 MG PO EVERY 4-6 HOURS 30 7 September 13, 2022 March 12, 2023 5:55am polyethylene glycol 3350 90732 mg powder for oral solution (20 sources) Osmotic Laxative Start: 11-11-2019 End: 05-22-2023 polyethylene glycol, PEG, 3350 (Glycolax) 17 GM/SCOOP powder 03/28/2023 Active Start: 07-16-2017 End: 07-16-2017 CLEARLAX 17GRAM/DOSE MISC - 07/16/2017 Provider: Start: 07-16-2017 End: 11-06-2019 ClearLax Oral Powder 019 - 09/04/2018 Provider: Start: 06-11-2016 End: 06-11-2016 [...] 0 December 24, 2023 12:00am Start: 04-02-2023 QUEtiapine Fum arate 400 MG Oral Tablet 04/02/2023 Provider: Start: 03-28-2023 QUEtiapine Fum arate 25 MG [...] Provider: Start: 06-28-2018 End: 06-28-2018 QUETIAPINE 50MG [facility] 019 - 06/28/2018 Provider: Start: 06-28-2018 End: 06-28-2018 QUETIAPINE 150MG MISC 2018 - 06/28/2018 Provider: Start: 08-24-2012 End: 05-02-2020 SEROquel XR 200 MG OR TB24 06/28/2018 - 05/02/2020 Provider: Conversion Provider QUEtiapine (SERO QUEL XR) 400 MG extended release tablet Take 600 mg by mouth nightly Active QUEtiapine (SERO quel) 25 MG tablet Take 12.5 mg by mouth in the morning and 12.5 mg in the evening and 12.5 mg before bedtime. Active take 0.5 tablet by m outh twice daily QUEtiapine (SEROQUEL) 25 mg tablet Take 25 mg by mouth two times a day. Take 1/2 tablet twice daily 0 Active take 1 tablet by emiliano [...] 2 tablets (100 mg) by oral route [facility] End: 03-05-2017 take 1 tablet [...] 25 mg intramu scularly every 2 weeks. risperiDONE microspheres (RISPERDAL CONSTA) 37.5 MG injection (2 sources) risperiDONE microspheres (RISPERDAL CONSTA) 37.5 MG injection Inject 2 mLs into the muscle every 14 days Active Risperidone Microspheres (Risperdal Consta) 37.5 mg/2 mL [...] 25 mg by mouth in the morning. 09/11/2022 Active Comment on above: Take 25 mg by mouth once daily. Vitamin B-12 500 MCG Oral Tablet (2 sources) Start: 09-24-2023 Vitamin B-12 500 MCG Oral Tablet 09/24/2023 Provider: vitamin b12 0.5 mg oral tablet (20 sources) Vitamin B12 Start: 03-26-2023 cyanocobalamin (Vitamin B-12) 500 MCG tablet Daily 03/26/2023 Active Start: 03-26-2023 take 1 tablet by emiliano th once daily Cyanocobalamin (Vitamin B-12) (Vitamin B-12) 500 mcg Tablet Active 500 MCG PO Daily March 26, 2023 12:00am Start: 09-11-2022 End: 03-12-2023 take 1 tablet [...] 14, 2022 11:15am Start: 09-06-2022 End: 05-22-2023 HYDROcodone-acetaminophen (N orco) 5-325 MG tablet 11/19/2022 Active Start: 08-24-2012 Vicodin 500 mg -5 mg [...] 11/06/2018 Provider: Artificial Tears 0.1-0.3% Ophthalmic Solution (18 sources) [...] days B12 Folate 800-800 MCG Oral Capsule (18 sources) Start: 03-16-2020 End: 08-11-2020 B12 Folate [...] - 09/22/2015 Provider: BLOOD PRESSURE CUFF MISC (20 sources) Start: 09-22-2015 End: 07-23-2019 BLOOD PRESSURE [...] 04-17-2018 BROMFED DM 2-30-10 MG/5 ML M ISC 04/17/2018 - 04/17/2018 Provider: Start: 04-17-2018 End: 04-17-2018 BROMFED DM 2-30-10MG/5 ML ME SC 04/17/2018 - 04/17/2018 Provider: Start: 07-30-2017 End: 05-02-2020 BROMFED DM 2-30-10 MG/5 ML M ISC 07/30/2017 - 05/02/2020 Provider: Start: 07-30-2017 End: 07-30-2017 BROMFED DM 2-30-10 MG/5 ML M ISC 07/30/2017 - 07/30/2017 Provider: Start: 07-30-2017 End: 07-30-2017 BROMFED DM 2-30-10MG/5 ML ME SC 07/30/2017 - 07/30/2017 Provider: Start: 05-17-2017 End: 05-02-2020 BROMFED DM 2-30-10 MG/5 ML M ISC 05/17/2017 - 05/02/2020 Provider: Start: 05-17-2017 End: 05-17-2017 BROMFED DM 2-30-10 MG/5 ML M ISC 05/17/2017 - 05/17/2017 Provider: Start: 05-17-2017 End: 05-17-2017 BROMFED DM 2-30-10MG/5 ML ME SC 05/17/2017 - 05/17/2017 Provider: Start: 05-22-2016 End: 07-23-2019 BROMFED DM 2-30-10 MG/5 ML M ISC 05/22/2016 - 07/23/2019 Provider: Start: 05-22-2016 End: 05-22-2016 BROMFED DM 2-30-10 MG/5 ML M ISC 05/22/2016 - 05/22/2016 Provider: Start: 05-22-2016 End: 05-22-2016 BROMFED DM 2-30-10MG/5 ML ME SC 05/22/2016 - 05/22/2016 Provider: Start: 12-09-2015 End: 07-23-2019 BROMFED DM 2-30-10 MG/5 ML M ISC 12/09/2015 - 07/23/2019 Provider: Start: 12-09-2015 End: 12-09-2015 BROMFED DM 2-30-10 MG/5 ML M ISC 12/09/2015 - 12/09/2015 Provider: Start: 12-09-2015 End: 12-09-2015 BROMFED DM 2-30-10MG/5 ML ME SC 12/09/2015 - 12/09/2015 Provider: Symbicort 160-4.5 [...] Calcium Start: 11-26-2018 End: 03-16-2020 Calcium 600+D3 [id number] Oral Tablet 11/26/2018 - 03/16/2020 Provider: Karla Clark CNP Start: 11-26-2018 End: 11-21-2019 Calcium 600+D3 [id number] T Oral Tablet 11/26/2018 - 11/21/2019 Provider: Karla Clark CNP Start: 07-31-2018 Calcium 600+D3 [id number] Oral Tablet 07/31/2018 Provider: Start: 08-24-2012 take 2 tablets by [facility] once daily Calcium 600 D Tab 2 tab(s), Oral, Daily, Refill(s) 0 Start Date: 08/24/12 Status: Ordered CALCIUM 600 + D(3) 600 mg(1,500mg) -400 UNIT MISC (20 sources) Start: 06-28-2018 End: 06-28-2018 CALCIUM 600 + D(3) 600 mg(1,500mg) -400 UNIT MISC 06/28/2018 - 06/28/2018 Provider: Start: 11-20-2017 End: [...] mg(1, 500mg) -400 UNIT MISC 11/20/2017 - 05/02/2020 Provider: Start: 11-09-2016 End: 05-02-2020 CALCIUM 600 + D(3) 600 mg(1, 500mg) -400 [facility]IT [facility] 11/09/2016 - 05/02/2020 Provider: CALCIUM 600 + D(3) 600 mg(1,500mg)-400 UNIT MISC (3 sources) Start: 06-28-2018 End: 06-28-2018 CALCIUM 600 + D(3) 600 mg(1,500mg)-400 UNIT [facility] 06/28/2018 - 06/28/2018 Provider: Start: 11-20-2017 End: 11-20-2017 CALCIUM 600 + D(3) 600 mg(1, 500mg)-400 UNIT [facility] 11/20/2017 - 11/20/2017 Provider: Start: 11-09-2016 End: 11-09-2016 CALCIUM 600 + D(3) 600 mg(1, 500mg)-400 UNIT [facility] 11/09/2016 - 11/09/2016 Provider: CALCIUM 600 + D(3) 600 mg(1,500mg)-400 UNIT MISC (6 sources) Start: 06-28-2018 End: 06-28-2018 CALCIUM 600 + D(3) 600 mg(1,500mg)-400 UNIT [facility] 06/28/2018 - 06/28/2018 Provider: Start: 11-20-2017 End: 11-20-2017 CALCIUM 600 + D(3) 600 mg(1, 500mg)-400 UNIT [facility] 11/20/2017 - 11/20/2017 Provider: Start: 11-09-2016 End: 11-09-2016 CALCIUM 600 + D(3) 600 mg(1, 500mg)-400 UNIT [facility] 11/09/2016 - 11/09/2016 Provider: Calcium 600+D 600-400 MG-UNI T Oral Tablet (20 sources) Start: 12-20-2021 End: 08-14-2023 Calcium 600+D 600-400 MG-UNI T Oral Tablet 12/20/2021 - 08/14/2023 Provider: Karla Clark CNP Start: 12-20-2021 Calcium 600+D 600-400 MG-UNIT Oral Tablet 12/20/2021 Provider: Karla Clark UPPER INSPECTOR Start: 02-24-2021 End: 12-20-2021 Calcium 600+D 600-400 [...] 600+D High Potency 600-400 MG-UNIT Oral Tablet (18 sources) Start: 03-12-2019 End: 04-15-2019 Calcium 600+D High Potency 600-400 MG-UNIT Oral Tablet 03/12/2019 - 04/15/2019 Provider: Karla Clark CNP Calcium 600+D3 600-400 MG-UN IT Oral Tablet (18 sources) Start: 03-16-2020 End: 02-24-2021 Calcium 600+D3 600-400 MG-UN IT Oral Tablet 03/16/2020 - 02/24/2021 Provider: Karla Clark CNP CALCIUM CARBONATE 500 mg calcium (1,250 MG) MISC (17 sources) Start: 06-28-2018 End: 06-28-2018 CALCIUM CARBONATE 500 mg rl cium (1,250 MG) MISC 06/28/2018 - 06/28/2018 Provider: CALCIUM CARBONATE 500 mg calcium (1,250 MG) MISC (18 sources) Start: 06-28-2018 End: 05-02-2020 CALCIUM CARBONATE [...] Provider: Carpal Tunnel Wrist Stabiliz er Miscellaneous (18 sources) Start: 07-23-2019 End: 07-28-2021 Carpal Tunnel [...] tablet by oral route every 12 hours CLEARLAX 17 GRAM/DOSE MISC (20 sources) Start: [...] GRAM/DOSE MISC 0 06/11/2016 - 07/23/2019 Provider: clopidogrel 300 mg oral tablet (1 source) [id number] Platelet Inhibitor Start: 04-23-2024 End: 04-23-2024 take 1 dose by mouth once 300 mg, Oral, ONCE, 1 dose, On Yasmine 04/23/24 at 1400 Start: 04-23-2024 End: 04-23-2024 take 1 dose by mouth once 300 mg, Oral, ONCE, 1 dose, On Yasmine 04/23/24 at 1400 cordicidin cough and cold (8 sources) Start: [...] cough / cold CORDICIDIN COUGH AND COLD ME SC (20 sources) Start: 08-21-2016 End: 08-21-2016 CORDICIDIN COUGH AND COLD ME SC 08/21/2016 - 08/21/2016 Provider: Start: 06-26-2016 End: 06-26-2016 CORDICIDIN COUGH AND COLD ME SC 06/26/2016 - 06/26/2016 Provider: Start: 04-10-2016 End: 07-23-2019 CORDICIDIN COUGH AND COLD ME SC 04/10/2016 - 07/23/2019 Provider: Start: 04-10-2016 End: 04-10-2016 CORDICIDIN COUGH AND COLD ME SC 04/10/2016 - 04/10/2016 Provider: CORDICIDIN COUGH AND COLD ME SC (20 sources) Start: 08-21-2016 End: 05-02-2020 CORDICIDIN COUGH AND COLD ME SC 08/21/2016 - 05/02/2020 Provider: Start: 08-21-2016 End: 08-21-2016 CORDICIDIN COUGH AND COLD ME SC 08/21/2016 - 08/21/2016 Provider: Start: 06-26-2016 End: 05-02-2020 CORDICIDIN COUGH AND COLD ME SC 06/26/2016 - 05/02/2020 Provider: Start: 06-26-2016 End: 06-26-2016 CORDICIDIN COUGH AND COLD ME SC 06/26/2016 - 06/26/2016 Provider: Start: 04-10-2016 End: 07-23-2019 CORDICIDIN COUGH AND COLD ME SC 04/10/2016 - 07/23/2019 Provider: Start: 04-10-2016 End: 04-10-2016 CORDICIDIN COUGH AND COLD ME SC 04/10/2016 - 04/10/2016 Provider: doxycycline hyclate [...] Provider: ERYTHROMYCIN 5 mg/gram (0.5 %) MISC (18 sources) Start: 06-28-2018 End: 05-02-2020 ERYTHROMYCIN 5 [...] per day in the morning and evening take 2 puff(s) by in halation in the morning mometasone-formoterol (DULERA) 200-5 MCG/ACT inhaler Inhale 2 puffs into the lungs in the morning and 2 puffs in the evening. Active take 2 puff(s) by in halation [...] INDOMETHACIN 50MG MISC 06/28 - 06/28/2018 Provider: iopamidol (ISOVUE-370) 76 % injection 90 mL (1 source) Start: 04-23-2024 End: 04-23-2024 take 1 dose intravenously once 90 mL, IntraVENous, IMG ONCE PRN, 1 dose, Starting on Yasmine 04/23/24 at 1330, Until Yasmine 04/23/24 at 1330, Other Lactobacillus acidophilus (20 sources) Start: 08-15-2023 End: [...] Or al Capsule 07/31/2018 Provider: lactobacillus acidophilus [id number] unt / pectin 10 mg oral capsule (18 sources) Start: 03-26-2023 End: 03-26-2023 take 1 capsule by mouth once daily Acidophilus-Pectin, [place] (Acidophilus Probiotic) 100 million cell-10 mg Capsule Discontinued 1 CAP PO Daily March 26, 2023 12:00am March 26, 2023 1:21am Start: 02-21-2017 take 1 capsule by [facility] twice daily Acidophilus Probiotic 100 million cell-10 [...] - 05/17/2017 Provider: MEDICATED CHEST RUB MISC (20 sources) Start: 05-17-2017 End: 05-02-2020 MEDICATED CHEST [...] - 06/28/2018 Provider: MIRALAX 17 gram/dose MISC (20 sources) Start: 06-28-2018 End: 05-02-2020 MIRALAX 17 [...] Start: 06-28-2018 End: 05-02-2020 NARATRIPTAN 2.5 MG MISC 06/28/2018 - 05/02/2020 Provider: Start: 06-28-2018 End: 06-28-2018 NARATRIPTAN 2.5 MG MISC 06/04 - 06/28/2018 Provider: Start: 06-28-2018 End: 06-28-2018 NARATRIPTAN 2.5MG MISC 06/28 - 06/28/2018 Provider: End: 05-14-2017 naratriptan 2.5 mg oral tabl et 05/14/2017 take 1 tablet (2.5 mg) by oral route once may repeat after 4 hours prn End: 05-14-2017 naratriptan 2.5 mg oral tabl et 05/14/2017 take 1 tablet (2.5 mg) by oral route once may repeat after 4 hours prn Omeprazole (20 sources) Proton Pump Inhibitor [...] Start: 06-11-2016 End: 06-11-2016 PRILOSEC 40MG MISC 7 - 06/11/2016 Provider: Start: 06-08-2014 End: 05-02-2020 [...] Provider: Start: 02-28-2016 End: 02-28-2016 PROPRANOLOL 80MG MISC 2015 - 02/28/2016 Provider: Start: 02-21-2016 End: 07-23-2019 PROPRANOLOL 80 MG MISC 02/20 - 07/23/2019 Provider: Start: 02-21-2016 End: 02-21-2016 PROPRANOLOL 80 MG MISC 02/20 - 02/21/2016 Provider: Start: 02-21-2016 End: 02-21-2016 PROPRANOLOL 80MG MISC 2015 - 02/21/2016 Provider: Start: 02-21-2016 End: [...] Provider: RISPERDAL CONSTA 37.5 MG/2 ML MISC (18 sources) Start: 06-28-2018 End: 05-02-2020 RISPERDAL CONSTA [...] Chambers Device 04/23/2019 - 05/23/2019 Provider: Karla lCark CNP Spacer/Aero-Holding Chambers Device (18 sources) Start: 04-23-2019 End: 05-23-2019 Spacer/Aero-Holding Chambers [...] - 06/12/2016 Provider: SYMBICORT 160-4.5 MCG/ACTUAT MISC (18 sources) Start: 06-12-2016 End: 07-23-2019 SYMBICORT 160-4.5 MCG/ACTUAT MISC 06/12/2016 - 07/23/2019 Provider: traMADol (20 sources) Opioid Agonist Start: 06-28-2018 End: 05-02-2020 TRAMADOL 50 mg MISC 06/28/2018 - 05/02/2020 Provider: Start: 06-28-2018 End: 06-28-2018 TRAMADOL 50 mg MISC 06/28/19 19 - 06/28/2018 Provider: take 1 tablet by emiliano twice daily as needed tramadol 50 mg [...] TUSSIN DM 10-100 MG/5 ML MIS C (18 sources) Start: 09-22-2015 End: 07-23-2019 TUSSIN DM [...] agent (substance)] Onset: 03-31-2019 Chronic kidney disease (8 sources) Chronic kidney disease stage 2; Translations: [...] INITIAL ENCOUNTER] Onset: 09-17-2022 Episodic Esophageal disorders (9 sources) Gastro-esophageal reflux disease without esophagitis; Translations: [Gastroesophageal reflux disease] Onset: 05-30-2023 06-18-2023 Chronic Essential hypertension (20 sources) Unspecified essential hypertension; Translations: [Hypertensive disorder] Onset: 09-22-2015 03-13-2023 Chronic Headache, including migraine (20 sources) Migraine, unspecified, without mention of intractable migraine without mention of status migrainosus; Translations: [Migraine] Onset: 09-08-2015 07-09-2016 Chronic Miscellaneous mental health disorders (2 sources) Emotional state finding; Translations: [Mental disorder, not otherwise specified] 02-18-2024 Chronic Mood disorders (20 sources) Bipolar disorder; Translations: [Depressive disorder] Onset: 05-04-2014 05-04-2014 Chronic Mood disorders (1 source) Major depressive disorder, single episode, unspecified; Translations: [Major depressive disorder, single episode, unspecified] Onset: 07-01-2018 Nonmalignant breast conditions (1 source) Mammary duct ectasia; 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, 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 Nonmalignant breast conditions (2 sources) Lesion of breast; Translations: [Breast lump] Episodic Nonspecific chest pain (20 sources) Atypical chest pain; Translations: [Chest pain] Onset: 05-04-2014 Resolved: 06-18-2022 05-04-2014 Episodic Other aftercare (1 source) Other halfway (current) drug therapy; Translations: [OTH GEOSPATIAL SCIENTIST CURRENT DRUG THERAPY] Onset: 09-17-2022 Episodic Other aftercare (2 sources) On lithium; Translations: [Other 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 company 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 (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) drug therapy] 02-18-2024 Episodic Other connective tissue disease (3 sources) Pain in right arm; Translations: [PAIN IN RIGHT ARM] Onset: 09-06-2022 Episodic Other connective tissue disease (1 source) Neurological symptom; Translations: [Unspecified symptoms and signs involving the nervous system] 04-23-2024 Episodic Other connective tissue disease (1 source) Unspecified symptoms and signs involving the nervous system; Translations: [Unspecified symptoms and signs involving the nervous system] Onset: 04-23-2024 Episodic Other connective tissue disease (1 source) Pain in right foot; Translations: [Right foot pain] Other ear and sense organ disorders (1 source) Otalgia; Translations: [Otalgia, unspecified] Onset: 06-18-2022 Episodic Other endocrine disorders (1 source) Hyperprolactinemia; Translations: [Hyperprolactinemia (HCC)] Chronic Other hereditary and degenerative nervous system conditions (1 source) Tremor; Translations: [Essential and other specified forms of tremor] Onset: 01-27-2024 Chronic Other hereditary and degenerative nervous system conditions (2 sources) Tardive dyskinesia; Translations: [Drug induced subacute dyskinesia] 02-18-2024 Episodic Other lower respiratory disease (6 sources) Other symptoms involving respiratory system and chest Onset: 05-22-2016 Episodic Other nervous system disorders (6 sources) Carpal tunnel syndrome Onset: 06-26-2016 Chronic Other nervous system disorders (2 sources) Staggering gait; Translations: [Abnormality of gait] Onset: 11-15-2023 Episodic Other nervous system disorders (3 sources) Abnormal gait; Translations: [Abnormality of gait] Onset: 01-27-2024 02-18-2024 Episodic Other non-traumatic joint disorders (1 source) [...] disorder; Translations: [Schizoaffective Disorder] Onset: 03-31-2019 Chronic Spondylosis; intervertebral disc disorders; other back problems (1 source) Lumbar radiculopathy; Translations: [Radiculopathy, lumbar region] 02-25-2024 Episodic Sprains and strains (3 sources) Strain of muscle(s) and tendon(s) of the rotator cuff of right shoulder, subsequent encounter Episodic Substance-related disorders (20 sources) Tobacco dependence syndrome; Translations: [Tobacco use disorder] Onset: 01-11-2016 Chronic Thyroid disorders (20 sources) Non-toxic multinodular goiter; Translations: [Nontoxic multinodular goiter] Onset: 05-30-2023 06-21-2023 Chronic Unclassified (6 sources) Body Mass Index 30.0-30.9, adult Onset: 12-19-2017 Chronic Unclassified (13 sources) Parkinson's disease; Translations: [Parkinson's disease] Onset: 08-27-2023 03-13-2023 Chronic Unclassified (20 sources) Body Mass [...] disorder, unspecified] Onset: 03-26-2023 Unclassified (1 source) Transport unavailable; Translations: [Transportation unavailable] 04-23-2024 Unclassified (1 source) Transportation insecurity; Translations: [Transportation insecurity] Onset: 04-23-2024 Past or Other Problems Problem Classification Problem Date Documented Da te Episodic/Chronic Abdominal pain (20 sources) Flank pain; Translations: [Unspecified abdominal pain] Onset: 3 03-13-2023 Episodic Acute and unspecified renal failure (18 sources) Acute renal failure syndrome; Translations: [Acute kidney failure, unspecified] Onset: 3 03-26-2023 Episodic Acute bronchitis (13 sources) Acute bronchitis; Translations: [Acute bronchitis, unspecified] Onset: 3 Resolved: 4 11-19-2022 Episodic Chronic obstructive pulmonary disease and bronchiectasis (20 sources) Chronic obstructive pulmonary disease and bronchiectasis; Translations: [Fagerstrom Score] Onset: 9 Conditions associated with dizziness or vertigo (6 sources) Dizziness and giddiness Onset: 6 Episodic Fracture of upper limb (20 sources) Other displaced fracture of upper end of right humerus, initial encounter for closed fracture; Translations: [Fracture of upper end of humerus] Onset: 3 Episodic Genitourinary symptoms and ill-defined conditions (5 sources) Dysuria; Translations: [Dysuria] Onset: 3 Episodic [...] site] Onset: 6 Episodic Nausea and vomiting (14 sources) Nausea and vomiting; Translations: [Nausea with vomiting, unspecified] Onset: 3 03-26-2023 Episodic Neoplasms of unspecified nature or uncertain behavior (12 sources) Neoplasm of uncertain behavior of skin; Translations: [Neoplastic disease] Onset: 7 07-16-2023 Episodic Other aftercare (1 source) Encounter for other plastic and reconstructive surgery following medical procedure or healed injury; Translations: [Encounter for other plastic and reconstructive surgery following medical procedure or healed injury] Onset: 4 Episodic Other connective tissue disease (7 sources) Pain in right lower limb; Translations: [Pain in limb] Onset: 3 Episodic Other connective tissue disease (13 sources) Pain in upper arm; Translations: [Pain [...] Translations: [Tobacco use] Onset: 4 05-04-2014 Episodic Schizophrenia and other psychotic disorders (16 sources) Brief psychotic disorder; Translations: [Acute psychosis] Onset: 4 08-15-2023 Episodic Unclassified (18 sources) Patient encounter status; Translations: [Colon cancer screening] Onset: 4 Resolved: 8 03-31-2018 Unclassified (13 sources) Intervention & Counseling Cessation of Tobacco Use 3-10 Min.; Translations: [Intervention & Counseling Cessation of Tobacco Use 3-10 Min.] Onset: 9 Unclassified (9 sources) Patient status finding; Translations: [Injury assessment] Onset: 9 Unclassified (1 source) Bipolar (qualifier value) 10-12-2009 Unclassified (2 sources) Onset: 3 08-16-2022 Urinary tract infections (12 sources) Urinary tract infection, site not specified Onset: 6 Episodic Results Test Name Value Interpretation Reference Range Facility APTTon 04-23-2024 aPTT Coag (Bld) [Time] 24.6 s [facility] Comment on above: IV Heparin Therapy Range: 66.0-92.0 sec aPTT Coag (Bld) [Time] 24.6 s Normal 23.0-36.5 [facility] Comment on above: Result Comment: IV Heparin Therapy Range: 66.0-92.0 sec Performed By: #### P T, CDP, PTT, TROPI, CP ####[facility] [id number] [place] [id number] lab Director: Tej Locke MD BUN, POCon 04-23-2024 Urea nitrogen [Mass/Vol] 25 mg/dL Normal 8- [facility] CALCIUM, IONIC (POC)on 04-23 Calcium.ionized (Bld) [Moles/Vol] 1.28 mmol/L 1.15 - 1.33 mmol/L [facility] CBC with Auto Differentialon 04-23-2024 Basophils (Bld) [#/Vol] 0.04 10*3/uL [facility] Basophils/100 WBC (Bld) 1 % 0 - 2 % B on [facility] Eosinophils (Bld) [#/Vol] 0.20 10*3/uL [facility] Eosinophils/100 WBC (Bld) 4 % 1 - 4 % [facility] Erythrocyte distribution width (RBC) [Ratio] 12.9 % 11.8 - 14.4 % [facility] Hematocrit (Bld) [Volume fraction] 38.4 % 36.3 - 47.1 % [facility] Hemoglobin (Bld) [Mass/Vol] 12.0 g/dL 11.9 - 15.1 g/dL [facility] Immature granulocytes (Bld) [#/Vol] [facility] Immature granulocytes/100 WBC (Bld) 0 % 0 [facility] Interpretation and review of laboratory results Abnormal [facility] Lymphocytes/100 WBC (Bld) 30 % 24 - 43 % [facility] Lymphocytes/100 WBC (Bld) 1.53 % [facility] MCH (RBC) [Entitic mass] 32.3 pg 25.2 - 33.5 pg [facility] MCHC (RBC) [Mass/Vol] 31.3 g/dL 28.4 - 34.8 g/dL [facility] MCV (RBC) [Entitic vol] 103.5 fL High 82.6 - 102.9 fL [facility] Monocytes/100 WBC (Bld) 10 % 3 - 12 % B on [facility] Monocytes/100 WBC (Bld) 0.51 % B on [facility] Neutrophils/100 WBC (Bld) 55 % 36 - 65 % [facility] Nucleated RBC/100 WBC (Bld) [Ratio] 0.0 % 0.0 per 100 WBC [facility] Platelet mean volume (Bld) [Entitic vol] 10.4 fL 8.1 - 13.5 fL [facility] Platelets (Bld) [#/Vol] 223 10*3/uL [facility] RBC (Bld) [#/Vol] 3.71 10*6/uL Low 3.95 - 5.11 m/uL [facility] RBC (Bld) [#/Vol] MACROCYTOSIS PRESENT [facility] Segmented neutrophils/100 WBC (Bld) 2.83 % [facility] WBC other (Bld) [#/Vol] 5.1 B on [facility] CBC with Diffon 04-23-2024 Abs. Basophil 0.04 k/uL Normal 0.00-0.20 [facility] Comment on above: Performed By: #### P T, CDP, PTT, TROPI, CP ####[facility] [address] [place] [address] lab Director: Tej Locke MD Abs.Imm.Granulocyte <0.03 Normal 0.00-0.30 [facility] Comment on above: Performed By: #### P T, CDP, PTT, TROPI, CP ####[address] [address])[phone] Director: Tej Locke MD Abs.Neutrophil (Seg) 2.83 k/uL Normal 1.50-8.10 [facility] Comment on above: Performed By: #### P T, CDP, PTT, TROPI, CP ####[place], [place] [address])[phone] Director: Tej Locke MD Basophils/100 WBC (Bld) 1 % Normal 0-2 M [facility] Comment on above: Performed By: #### P T, CDP, PTT, TROPI, CP ####[place], [place] [address])[phone] Director: Tej Locke MD Eosinophils (Bld) [#/Vol] 0.20 10*3/uL Normal 0.00-0.44 [facility] Comment on above: Performed By: #### P T, CDP, PTT, TROPI, CP ####[place], [place] [address])[phone] Director: Tej Locke MD Eosinophils/100 WBC (Bld) 4 % Normal 1-4 [facility] Comment on above: Performed By: #### P T, CDP, PTT, TROPI, CP ####[place], [place] [address])[phone] Director: Tej Locke MD Erythrocyte distribution width (RBC) [Ratio] 12.9 % Normal 11.8-14.4 [facility] Comment on above: Performed By: #### P T, CDP, PTT, TROPI, CP ####[place], [place] [address])[phone] Director: Tej Locke MD Hematocrit (Bld) [Volume fraction] 38.4 % Normal 36.3-47.1 [facility] Comment on above: Performed By: #### P T, CDP, PTT, TROPI, CP ####[address] [address])[phone] Director: Tej Locke MD Hemoglobin (Bld) [Mass/Vol] 12.0 g/dL Normal 11.9-15.1 [facility] Comment on above: Performed By: #### P T, CDP, PTT, TROPI, CP ####[address] [address])[phone] Director: Tej Locke MD Immature granulocytes/100 WBC (Bld) 0 % Normal 0 [facility] Comment on above: Performed By: #### P T, CDP, PTT, TROPI, CP ####[place], [place] [address])[phone] Director: Tej Locke MD Lymphocytes (Bld) [#/Vol] 1.53 10*3/uL Normal 1.10-3.70 [facility] Comment on above: Performed By: #### P T, CDP, PTT, TROPI, CP ####[address] [address])[phone] Director: Tej Locke MD Lymphocytes/100 WBC (Bld) 30 % Normal 24-43 [facility] Comment on above: Performed By: #### P T, CDP, PTT, TROPI, CP ####[place], [place] [address])[phone] Director: Tej Locke MD MCH (RBC) [Entitic mass] 32.3 pg Normal 25.2-33.5 [facility] Comment on above: Performed By: #### P T, CDP, PTT, TROPI, CP ####[address] [phone] Director: Tej Locke MD MCHC (RBC) [Mass/Vol] 31.3 g/dL Normal 28.4-34.8 [facility] Comment on above: Performed By: #### P T, CDP, PTT, TROPI, CP ####[address] [id number])[phone] Director: Tej Locke MD MCV (RBC) [Entitic vol] 103.5 fL High 82.6-102.9 [facility] Comment on above: Performed By: #### P T, CDP, PTT, TROPI, CP ####[address] [phone] Director: Tej Locke MD Monocytes (Bld) [#/Vol] 0.51 10*3/uL Normal 0.10-1.20 [facility] Comment on above: Performed By: #### P T, CDP, PTT, TROPI, CP ####[place], [place] [address])[phone] Director: Tej Locke MD Monocytes/100 WBC (Bld) 10 % Normal 3-12 [facility] Comment on above: Performed By: #### P T, CDP, PTT, TROPI, CP ####[address] [address])[phone] Director: Tej Locke MD Neutrophil (Seg) 55 % Normal 36-65 [facility] Comment on above: Performed By: #### P T, CDP, PTT, TROPI, CP ####[address] [address])[phone] Director: Tej Locke MD NRBC Automated 0.0 per 100 WBC Normal 0.0 [facility] Comment on above: Performed By: #### P T, CDP, PTT, TROPI, CP ####[address] [address])[phone] Director: Tej Locke MD Platelet mean volume (Bld) [Entitic vol] 10.4 fL Normal 8.1-13.5 [facility] Comment on above: Performed By: #### P T, CDP, PTT, TROPI, CP ####[address] [address] Lab Director: Tej Locke MD Platelets (Bld) [#/Vol] 223 10*3/uL Normal 138-453 [facility] Comment on above: Performed By: #### P T, CDP, PTT, TROPI, CP ####[address] [address] Lab Director: Tej Locke MD RBC (Bld) [#/Vol] 3.71 10*6/uL Low 3.95-5.11 [facility] Comment on above: Performed By: #### P T, CDP, PTT, TROPI, CP ####[address] [address] Lab Director: Tej Locke MD RBC morphology finding Nom (Bld) MACROCYTOSIS PRESENT Normal [facility] Comment on above: Performed By: #### P T, CDP, PTT, TROPI, CP ####[address] [address] Lab Director: Tej Locke MD WBC (Bld) [#/Vol] 5.1 10*3/uL Normal 3.5-11.3 [facility] Comment on above: Performed By: #### P T, CDP, PTT, TROPI, CP ####[address] [id number])[phone] Director: Tej Locke MD CT HEAD WO CONTRASTon 2023 CT HEAD WO CONTRAST EXAMINATION: CTA OF THE HEAD AND NECK WITH CONTRAST; CT OF THE HEAD WITHOUT CONTRAST 04/23/2024 1:31 pm; 04/23/2024 1:26 pm: TECHNIQUE: CTA of the head and neck was performed with the administration of intravenous contrast. Multiplanar reformatted images are provided for review. MIP images are provided for review. Stenosis of the internal carotid arteries measured using NASCET criteria. Automated exposure control, iterative reconstruction, and/or weight based adjustment of the mA/kV was utilized to reduce the radiation dose to as low as reasonably achievable.; CT of the head was performed without the administration of intravenous contrast. Automated exposure control, iterative reconstruction, and/or weight based adjustment of the mA/kV was utilized to reduce the radiation dose to as low as reasonably achievable. Noncontrast CT of the head with reconstructed 2-D images are also provided for review. This scan was analyzed using Qwaq.Accumulate contact LVO. Identification of suspected findings is not for diagnostic use beyond notification. Qwaq LVO is limited to analysis of imaging data and should not be used in-lieu of full patient evaluation or relied upon to make or confirm diagnosis. COMPARISON: None. HISTORY: ORDERING SYSTEM PROVIDED HISTORY: Concern for stroke FINDINGS: CT HEAD: BRAIN/VENTRICLES: No acute intracranial hemorrhage or extraaxial fluid collection. Barrow-white differentiation is maintained. No evidence of mass, mass effect or midline shift. No evidence of hydrocephalus. ORBITS: The visualized portion of the orbits demonstrate no acute abnormality. SINUSES: The visualized paranasal sinuses and mastoid air cells demonstrate no acute abnormality. SOFT TISSUES/SKULL: No acute abnormality of the visualized skull or soft tissues. CTA NECK: AORTIC ARCH/ARCH VESSELS: No dissection or arterial injury. No significant stenosis of the brachiocephalic or subclavian arteries. CAROTID ARTERIES: No dissection, arterial injury, or hemodynamically significant stenosis by NASCET criteria. VERTEBRAL ARTERIES: No dissection, arterial injury, or significant stenosis. SOFT TISSUES: The lung apices are emphysematous. Suspected patchy atelectasis exacerbated by respiratory motion throughout the lung apices; however, superimposed edema or infectious infiltrate is possible. No cervical or superior mediastinal lymphadenopathy. The larynx and pharynx are unremarkable. No acute abnormality of the salivary glands. Status post thyroidectomy. BONES: No acute osseous abnormality. CTA HEAD: ANTERIOR CIRCULATION: No significant stenosis of the intracranial internal carotid, anterior cerebral, or middle cerebral arteries. No aneurysm. POSTERIOR CIRCULATION: No significant stenosis of the vertebral, basilar, or posterior cerebral arteries. No aneurysm. OTHER: No dural venous sinus thrombosis on this non-dedicated study. IMPRESSION: 1. No acute intracranial abnormality. 2. No flow limiting stenosis or occlusion within the head or neck. 3. Emphysematous lung apices with suspected patchy atelectasis exacerbated by respiratory motion throughout the lung apices, however superimposed edema or infectious infiltrates is possible. The noncontrast head CT findings were sent to the Radiology Results Communication Center at 2:16 pm on 04/23/2024 to be communicated to a licensed caregiver, received by Dr. Pillai at 2:22 pm. Interpreted by: Yandel Walters DO Signed by: Yandel Walters DO 04/23/24 Final result Normal [facility] CT Head WO contraston 2023 Radiology Study observation (narrative) Charly sanchez [facility] CTA HEAD NECK W CONTRASTon 1 06-23-2023 CTA HEAD NECK W CONTRAST EXAMINATION: CTA OF THE HEAD AND NECK WITH CONTRAST; CT OF THE HEAD WITHOUT CONTRAST 04/23/2024 1:31 pm; 04/23/2024 1:26 pm: TECHNIQUE: CTA of the head and neck was performed with the administration of intravenous contrast. Multiplanar reformatted images are provided for review. MIP images are provided for review. Stenosis of the internal carotid arteries measured using NASCET criteria. Automated exposure control, iterative reconstruction, and/or weight based adjustment of the mA/kV was utilized to reduce the radiation dose to as low as reasonably achievable.; CT of the head was performed without the administration of intravenous contrast. Automated exposure control, iterative reconstruction, and/or weight based adjustment of the mA/kV was utilized to reduce the radiation dose to as low as reasonably achievable. Noncontrast CT of the head with reconstructed 2-D images are also provided for review. This scan was analyzed using Viz.ai contact LVO. Identification of suspected findings is not for diagnostic use beyond notification. Viz LVO is limited to analysis of imaging data and should not be used in-lieu of full patient evaluation or relied upon to make or confirm diagnosis. COMPARISON: None. HISTORY: ORDERING SYSTEM PROVIDED HISTORY: Concern for stroke FINDINGS: CT HEAD: BRAIN/VENTRICLES: No acute intracranial hemorrhage or extraaxial fluid collection. Barrow-white differentiation is maintained. No evidence of mass, mass effect or midline shift. No evidence of hydrocephalus. ORBITS: The visualized portion of the orbits demonstrate no acute abnormality. SINUSES: The visualized paranasal sinuses and mastoid air cells demonstrate no acute abnormality. SOFT TISSUES/SKULL: No acute abnormality of the visualized skull or soft tissues. CTA NECK: AORTIC ARCH/ARCH VESSELS: No dissection or arterial injury. No significant stenosis of the brachiocephalic or subclavian arteries. CAROTID ARTERIES: No dissection, arterial injury, or hemodynamically significant stenosis by NASCET criteria. VERTEBRAL ARTERIES: No dissection, arterial injury, or significant stenosis. SOFT TISSUES: The lung apices are emphysematous. Suspected patchy atelectasis exacerbated by respiratory motion throughout the lung apices; however, superimposed edema or infectious infiltrate is possible. No cervical or superior mediastinal lymphadenopathy. The larynx and pharynx are unremarkable. No acute abnormality of the salivary glands. Status post thyroidectomy. BONES: No acute osseous abnormality. CTA HEAD: ANTERIOR CIRCULATION: No significant stenosis of the intracranial internal carotid, anterior cerebral, or middle cerebral arteries. No aneurysm. POSTERIOR CIRCULATION: No significant stenosis of the vertebral, basilar, or posterior cerebral arteries. No aneurysm. OTHER: No dural venous sinus thrombosis on this non-dedicated study. IMPRESSION: 1. No acute intracranial abnormality. 2. No flow limiting stenosis or occlusion within the head or neck. 3. Emphysematous lung apices with suspected patchy atelectasis exacerbated by respiratory motion throughout the lung apices, however superimposed edema or infectious infiltrates is possible. The noncontrast head CT findings were sent to the Radiology Results Communication Center at 2:16 pm on 04/23/2024 to be communicated to a licensed caregiver, received by Dr. Pillai at 2:22 pm. Interpreted by: Yandel Walters DO Signed by: Yandel Walters DO 04/23/24 Final result Normal [facility] CTA Head vessels and Neck ve ssels W contrast [place] 04-23-2024 Radiology Study observation (narrative) Charly sanchez [facility] Calcium, Ionic (POC)on 04-23 Calcium [Moles/Vol] 1.28 mmol/L Normal 1.15-1.33 [facility] Comp Metabolic Profon 2023 Albumin [Mass/Vol] 4.2 g/dL Normal 3.5-5.2 [facility] Comment on above: Performed By: #### P T, CDP, PTT, TROPI, CP ####[address] [phone] Director: Tej Locke MD Albumin/Glob Ratio 1.9 Normal 1.0-2.5 [facility] Comment on above: Performed By: #### P T, CDP, PTT, TROPI, CP ####[facility] [address] [place], [place] [phone] Director: Tej Locke MD Alkaline Phos 116 U/L High 35-104 [facility] Comment on above: Performed By: #### P T, CDP, PTT, TROPI, CP ####[facility] [address] [place], [place] [phone] Director: Tej Locke MD ALT [Catalytic activity/Vol] 19 U/L Normal 10-35 [facility] Comment on above: Performed By: #### P T, CDP, PTT, TROPI, CP ####[facility] [address] [place], [place] [phone] Director: Tej Locke MD Anion gap [Moles/Vol] 9 mmol/L Normal 9-16 [facility] Comment on above: Performed By: #### P T, CDP, PTT, TROPI, CP ####[facility] [address] [place], [place] [phone] Director: Tej Locke MD AST [Catalytic activity/Vol] 17 U/L Normal 10-35 [facility] Comment on above: Performed By: #### P T, CDP, PTT, TROPI, CP ####[facility] [address] [place], [place] [phone] Director: Tej Locke MD Bilirubin [Mass/Vol] mg/dL Normal 0.0-1.2 [facility] Comment on above: Performed By: #### P T, CDP, PTT, TROPI, CP ####[facility] [address] [place], [place] [phone] Director: Tej Locke MD Calcium [Mass/Vol] 9.6 mg/dL Normal 8.6-10.4 [facility] Comment on above: Performed By: #### P T, CDP, PTT, TROPI, CP ####[facility] [address] [place] [address] Lab Director: Tej Locke MD Chloride [Moles/Vol] 109 mmol/L High 98-107 [facility] Comment on above: Performed By: #### P T, CDP, PTT, TROPI, CP ####[facility] [address] [place] [address] Lab Director: Tej Locke MD CO2 [Moles/Vol] 22 mmol/L Normal 20-31 [facility] Comment on above: Performed By: #### P T, CDP, PTT, TROPI, CP ####[address] [address] Lab Director: Tej Locke MD Creatinine [Mass/Vol] 1.5 mg/dL High 0.6-0.9 [facility] Comment on above: Performed By: #### P T, CDP, PTT, TROPI, CP ####[address] [address])[phone] Director: Tej Locke MD GFR/1.73 sq M.predicted among non-blacks MDRD (S/P/Bld) [Vol rate/Area] 38 mL/min/{1.73_m2} Low >60 [facility] Comment on above: Result Comment: These results are not intended for use in patients <18 years of age. eGFR results are calculated without a race factor using the 2020 CKD-EPI equation. Careful clinical correlation is recommended, particularly when comparing to results calculated using previous equations. The CKD-EPI equation is less accurate in patients with extremes of muscle mass, extra-renal metabolism of creatine, excessive creatine ingestion, or following therapy that affects renal tubular secretion. Performed By: #### P T, CDP, PTT, TROPI, CP ####[facility] [address] [place], [place] [phone] Director: Tej Locke MD Glucose [Mass/Vol] 106 mg/dL High 74-99 [facility] Comment on above: Performed By: #### P T, CDP, PTT, TROPI, CP ####[facility] [address] [place], [place] [phone] Director: Tej Locke MD Potassium [Moles/Vol] 4.6 mmol/L Normal 3.7-5.3 [facility] Comment on above: Performed By: #### P T, CDP, PTT, TROPI, CP ####[facility] [address] [place], [place] [phone] Director: Tej Locke MD Protein [Mass/Vol] 6.4 g/dL Low 6.6-8.7 [facility] Comment on above: Performed By: #### P T, CDP, PTT, TROPI, CP ####[facility] [address] [place], [place] [phone] Director: Tej Locke MD Sodium [Moles/Vol] 140 mmol/L Normal 136-145 [facility] Comment on above: Performed By: #### P T, CDP, PTT, TROPI, CP ####[facility] [address] [place], [place] [phone])[phone] Director: Tej Locke MD Urea nitrogen [Mass/Vol] 25 mg/dL High 8-23 [facility] Comment on above: Performed By: #### P T, CDP, PTT, TROPI, CP ####[facility] [address] [place], [place] [phone] Director: Tej Locke MD Comprehensive Metabolic Pane [facility] 04-23-2024 Albumin [Mass/Vol] 4.2 g/dL 3.5 - 5.2 g/dL [facility] Albumin/Globulin [Mass ratio] 1.9 {ratio} 1.0 - 2.5 [facility] ALP [Catalytic activity/Vol] 116 U/L High 35 - 104 U/L [facility] ALT [Catalytic activity/Vol] 19 U/L 10 - 35 U/L [facility] Anion gap [Moles/Vol] 9 mmol/L 9 - 16 mmol/L [facility] AST [Catalytic activity/Vol] 17 U/L 10 - 35 U/L [facility] Bilirubin [Mass/Vol] mg/dL 0.0 - 1 .2 mg/dL [facility] Calcium [Mass/Vol] 9.6 mg/dL 8.6 - 10. 4 mg/dL [facility] Chloride [Moles/Vol] 109 mmol/L High 98 - 10 7 mmol/L [facility] CO2 [Moles/Vol] 22 mmol/L 20 - 31 mmol/L [facility] Creatinine [Mass/Vol] 1.5 mg/dL High 0.6 - 0.9 mg/dL [facility] Est, Glom Filt Rate 38 Low - PINF [facility] Comment on above: These results are not intended for use in patients <18 years of age. eGFR results are calculated without a race factor using the 2020 CKD-EPI equation. Careful clinical correlation is recommended, particularly when comparing to results calculated using previous equations. The CKD-EPI equation is less accurate in patients with extremes of muscle mass, extra-renal metabolism of creatine, excessive creatine ingestion, or following therapy that affects renal tubular secretion. Glucose [Mass/Vol] 106 mg/dL High 74 - 99 mg/dL [facility] Potassium [Moles/Vol] 4.6 mmol/L 3.7 - 5.3 mmol/L [facility] Protein [Mass/Vol] 6.4 g/dL Low 6.6 - 8.7 g/dL [facility] Sodium [Moles/Vol] 140 mmol/L 136 - 145 mmol/L [facility] Urea nitrogen [Mass/Vol] 25 mg/dL High 8 - 23 mg/dL [facility] Creatinine W/GFR Point of Ca reon 04-23-2024 Creatinine [Mass/Vol] 1.3 mg/dL High 0.51 - 1.19 mg/dL [facility] eGFR, POC 45 Low - PINF [facility] Comment on above: These results are not intended for use in patients <18 years of age. eGFR results are calculated without a race factor using the 2020 CKD-EPI equation. Careful clinical correlation is recommended, particularly when comparing to results calculated using previous equations. The CKD-EPI equation is less accurate in patients with extremes of muscle mass, extra-renal metabolism of creatine, excessive creatine ingestion, or following therapy that affects renal tubular secretion. Creatinine w/GFR, POCon 11 Creatinine [Mass/Vol] 1.3 mg/dL High 0.51-1.19 [facility] GFR/1.73 sq M.predicted among non-blacks MDRD (S/P/Bld) [Vol rate/Area] 45 mL/min/{1.73_m2} Low >60 [facility] Comment on above: Result Comment: These results are not intended for use in patients <18 years of age. eGFR results are calculated without a race factor using the 2020 CKD-EPI equation. Careful clinical correlation is recommended, particularly when comparing to results calculated using previous equations. The CKD-EPI equation is less accurate in patients with extremes of muscle mass, extra-renal metabolism of creatine, excessive creatine ingestion, or following therapy that affects renal tubular secretion. ELECTROLYTES PLUSon 04-23-20 Anion gap [Moles/Vol] 14 mmol/L 7 - 16 mmol/L [facility] Chloride [Moles/Vol] 109 mmol/L High 98 - 10 7 mmol/L [facility] CO2 Calc (Bld) [Moles/Vol] 23 mmol/L 22 - 30 mmol/L [facility] Potassium [Moles/Vol] 4.6 mmol/L High 3.5 - 4.5 mmol/L [facility] Sodium [Moles/Vol] 145 mmol/L 138 - 146 mmol/L [facility] Electrolyteson 04-23-2024 Anion gap [Moles/Vol] 14 mmol/L Normal 7-16 [facility] Chloride [Moles/Vol] 109 mmol/L High 98-107 [facility] CO2 [Moles/Vol] 23 mmol/L Normal 22-30 [facility] Potassium [Moles/Vol] 4.6 mmol/L High 3.5-4.5 [facility] Sodium [Moles/Vol] 145 mmol/L Normal 138-146 [facility] Glucose (POC)on 04-23-2024 Glucose [Mass/Vol] 98 mg/dL Normal 74-100 [facility] Hemoglobin and hematocrit, b loodon 04-23-2024 Hematocrit (Bld) [Volume fraction] 37 % 36 - 46 % [facility] Hemoglobin (Bld) [Mass/Vol] 12.4 g/dL 12.0 - 16.0 g/dL [facility] Hgb/Hct, POCon 04-23-2024 Hematocrit (Bld) [Volume fraction] 37 % Normal 36-46 [facility] Hemoglobin (Bld) [Mass/Vol] 12.4 g/dL Normal 12.0-16.0 [facility] Lactic Acid (POC)on 04-23-20 24 Lactate [Moles/Vol] 1.0 mmol/L Normal 0.56-1.39 [facility] Lactic Acid, POCon 4 POC Lactic Acid 1.0 mmol/L 0.56 - 1.39 mmol/L [facility] MR Brain WO contraston 04-23 No acute intracrania l abnormality. PN RIS CONSOLIDATED EXAMINATION: MRI OF THE BRAIN WITHOUT CONTRAST 04/23/2024 2:37 pm TECHNIQUE: Multiplanar multisequence MRI of the brain was performed without the administration of intravenous contrast. COMPARISON: CTA head and neck performed earlier today, brain MRI 06/30/2020 HISTORY: ORDERING SYSTEM PROVIDED HISTORY: left sided intermittent weakness, left facial droop and dysarthria TECHNOLOGIST PROVIDED HISTORY: left sided intermittent weakness, left facial droop and dysarthria Decision Support Exception - unselect if not a suspected or confirmed emergency medical condition->Emergency Medical Condition (MA) Reason for Exam: Left sided intermittent weakness, left facial droop and dysarthria. FINDINGS: INTRACRANIAL STRUCTURES/VENTRICLES: There is no acute infarct. No mass effect or midline shift. No evidence of an acute intracranial hemorrhage. The ventricles and sulci are normal in size and configuration. The sellar/suprasellar regions appear unremarkable. The normal signal voids within the major intracranial vessels appear maintained. ORBITS: The visualized portion of the orbits demonstrate no acute abnormality. SINUSES: The visualized paranasal sinuses and mastoid air cells demonstrate no acute abnormality. BONES/SOFT TISSUES: The bone marrow signal intensity appears normal. The soft tissues demonstrate no acute abnormality. [facility] Yin Dodd MD - 04/23/2024 EXAMINATION: MRI OF THE BRAIN WITHOUT CONTRAST 04/23/2024 2:37 pm TECHNIQUE: Multiplanar multisequence MRI of the brain was performed without the administration of intravenous contrast. COMPARISON: CTA head and neck performed earlier today, brain MRI 06/30/2020 HISTORY: ORDERING SYSTEM PROVIDED HISTORY: left sided intermittent weakness, left facial droop and dysarthria TECHNOLOGIST PROVIDED HISTORY: left sided intermittent weakness, left facial droop and dysarthria Decision Support Exception - unselect if not a suspected or confirmed emergency medical condition->Emergency Medical Condition (MA) Reason for Exam: Left sided intermittent weakness, left facial droop and dysarthria. FINDINGS: INTRACRANIAL STRUCTURES/VENTRICLES: There is no acute infarct. No mass effect or midline shift. No evidence of an acute intracranial hemorrhage. The ventricles and sulci are normal in size and configuration. The sellar/suprasellar regions appear unremarkable. The normal signal voids within the major intracranial vessels appear maintained. ORBITS: The visualized portion of the orbits demonstrate no acute abnormality. SINUSES: The visualized paranasal sinuses and mastoid air cells demonstrate no acute abnormality. BONES/SOFT TISSUES: The bone marrow signal intensity appears normal. The soft tissues demonstrate no acute abnormality. IMPRESSION: No acute intracranial abnormality. [facility] Radiology Study observation (narrative) [facility] MR Brain WO contrastOrdered By: Yin Caledrón on 04-23-2024 [facility] Work Phone: MRI BRAIN WO CONTRASTon 04-04 MRI BRAIN WO CONTRAST EXAMINATION: MRI OF THE BRAIN WITHOUT CONTRAST 04/23/2024 2:37 pm TECHNIQUE: Multiplanar multisequence MRI of the brain was performed without the administration of intravenous contrast. COMPARISON: CTA head and neck performed earlier today, brain MRI 06/30/2020 HISTORY: ORDERING SYSTEM PROVIDED HISTORY: left sided intermittent weakness, left facial droop and dysarthria TECHNOLOGIST PROVIDED HISTORY: left sided intermittent weakness, left facial droop and dysarthria Decision Support Exception - unselect if not a suspected or confirmed emergency medical condition->Emergency Medical Condition (MA) Reason for Exam: Left sided intermittent weakness, left facial droop and dysarthria. FINDINGS: INTRACRANIAL STRUCTURES/VENTRICLES: There is no acute infarct. No mass effect or midline shift. No evidence of an acute intracranial hemorrhage. The ventricles and sulci are normal in size and configuration. The sellar/suprasellar regions appear unremarkable. The normal signal voids within the major intracranial vessels appear maintained. ORBITS: The visualized portion of the orbits demonstrate no acute abnormality. SINUSES: The visualized paranasal sinuses and mastoid air cells demonstrate no acute abnormality. BONES/SOFT TISSUES: The bone marrow signal intensity appears normal. The soft tissues demonstrate no acute abnormality. IMPRESSION: No acute intracranial abnormality. Interpreted by: Yin Calderón MD Signed by: Yin Calderón MD 04/23/24 Final result Normal [facility] Microscopic Urinalysison Bacteria LM Ql (Urine sed) None None [facility] Casts LM.LPF (Urine sed) [#/Area] None Reference range defined for non-centrifuged specimen. [facility] Epithelial cells LM.HPF (Urine sed) [#/Area] 0 TO 2 [facility] RBC LM.HPF (Urine sed) [#/Area] None [facility] Comment on above: Reference range defi aggie for non-centrifuged specimen. WBC LM.HPF (Urine sed) [#/Area] 0 TO 2 [facility] No Panel Informationon 04-23 1. No acute intracra nial abnormality. 2. No flow limiting stenosis or occlusion within the head or neck. 3. Emphysematous lung apices with suspected patchy atelectasis exacerbated by respiratory motion throughout the lung apices, however superimposed edema or infectious infiltrates is possible. The noncontrast head CT findings were sent to the Radiology Results Communication Center at 2:16 pm on 04/23/2024 to be communicated to a licensed caregiver, received by Dr. Pillai at 2:22 pm. [facility] EXAMINATION: CTA OF THE HEAD AND NECK WITH CONTRAST; CT OF THE HEAD WITHOUT CONTRAST 04/23/2024 1:31 pm; 04/23/2024 1:26 pm: TECHNIQUE: CTA of the head and neck was performed with the administration of intravenous contrast. Multiplanar reformatted images are provided for review. MIP images are provided for review. Stenosis of the internal carotid arteries measured using NASCET criteria. Automated exposure control, iterative reconstruction, and/or weight based adjustment of the mA/kV was utilized to reduce the radiation dose to as low as reasonably achievable.; CT of the head was performed without the administration of intravenous contrast. Automated exposure control, iterative reconstruction, and/or weight based adjustment of the mA/kV was utilized to reduce the radiation dose to as low as reasonably achievable. Noncontrast CT of the head with reconstructed 2-D images are also provided for review. This scan was analyzed using [employer] contact LVO. Identification of suspected findings is not for diagnostic use beyond notification. Viz LVO is limited to analysis of imaging data and should not be used in-lieu of full patient evaluation or relied upon to make or confirm diagnosis. COMPARISON: None. HISTORY: ORDERING SYSTEM PROVIDED HISTORY: Concern for stroke FINDINGS: CT HEAD: BRAIN/VENTRICLES: No acute intracranial hemorrhage or extraaxial fluid collection. Barrow-white differentiation is maintained. No evidence of mass, mass effect or midline shift. No evidence of hydrocephalus. ORBITS: The visualized portion of the orbits demonstrate no acute abnormality. SINUSES: The visualized paranasal sinuses and mastoid air cells demonstrate no acute abnormality. SOFT TISSUES/SKULL: No acute abnormality of the visualized skull or soft tissues. CTA NECK: AORTIC ARCH/ARCH VESSELS: No dissection or arterial injury. No significant stenosis of the brachiocephalic or subclavian arteries. CAROTID ARTERIES: No dissection, arterial injury, or hemodynamically significant stenosis by NASCET criteria. VERTEBRAL ARTERIES: No dissection, arterial injury, or significant stenosis. SOFT TISSUES: The lung apices are emphysematous. Suspected patchy atelectasis exacerbated by respiratory motion throughout the lung apices; however, superimposed edema or infectious infiltrate is possible. No cervical or superior mediastinal lymphadenopathy. The larynx and pharynx are unremarkable. No acute abnormality of the salivary glands. Status post thyroidectomy. BONES: No acute osseous abnormality. CTA HEAD: ANTERIOR CIRCULATION: No significant stenosis of the intracranial internal carotid, anterior cerebral, or middle cerebral arteries. No aneurysm. POSTERIOR CIRCULATION: No significant stenosis of the vertebral, basilar, or posterior cerebral arteries. No aneurysm. OTHER: No dural venous sinus thrombosis on this non-dedicated study. [facility] RomeoYandel loco - 04/23/2024 EXAMINATION: CTA OF THE HEAD AND NECK WITH CONTRAST; CT OF THE HEAD WITHOUT CONTRAST 04/23/2024 1:31 pm; 04/23/2024 1:26 pm: TECHNIQUE: CTA of the head and neck was performed with the administration of intravenous contrast. Multiplanar reformatted images are provided for review. MIP images are provided for review. Stenosis of the internal carotid arteries measured using NASCET criteria. Automated exposure control, iterative reconstruction, and/or weight based adjustment of the mA/kV was utilized to reduce the radiation dose to as low as reasonably achievable.; CT of the head was performed without the administration of intravenous contrast. Automated exposure control, iterative reconstruction, and/or weight based adjustment of the mA/kV was utilized to reduce the radiation dose to as low as reasonably achievable. Noncontrast CT of the head with reconstructed 2-D images are also provided for review. This scan was analyzed using [employer] contact LVO. Identification of suspected findings is not for diagnostic use beyond notification. Viz LVO is limited to analysis of imaging data and should not be used in-lieu of full patient evaluation or relied upon to make or confirm diagnosis. COMPARISON: None. HISTORY: ORDERING SYSTEM PROVIDED HISTORY: Concern for stroke FINDINGS: CT HEAD: BRAIN/VENTRICLES: No acute intracranial hemorrhage or extraaxial fluid collection. Barrow-white differentiation is maintained. No evidence of mass, mass effect or midline shift. No evidence of hydrocephalus. ORBITS: The visualized portion of the orbits demonstrate no acute abnormality. SINUSES: The visualized paranasal sinuses and mastoid air cells demonstrate no acute abnormality. SOFT TISSUES/SKULL: No acute abnormality of the visualized skull or soft tissues. CTA NECK: AORTIC ARCH/ARCH VESSELS: No dissection or arterial injury. No significant stenosis of the brachiocephalic or subclavian arteries. CAROTID ARTERIES: No dissection, arterial injury, or hemodynamically significant stenosis by NASCET criteria. VERTEBRAL ARTERIES: No dissection, arterial injury, or significant stenosis. SOFT TISSUES: The lung apices are emphysematous. Suspected patchy atelectasis exacerbated by respiratory motion throughout the lung apices; however, superimposed edema or infectious infiltrate is possible. No cervical or superior mediastinal lymphadenopathy. The larynx and pharynx are unremarkable. No acute abnormality of the salivary glands. Status post thyroidectomy. BONES: No acute osseous abnormality. CTA HEAD: ANTERIOR CIRCULATION: No significant stenosis of the intracranial internal carotid, anterior cerebral, or middle cerebral arteries. No aneurysm. POSTERIOR CIRCULATION: No significant stenosis of the vertebral, basilar, or posterior cerebral arteries. No aneurysm. OTHER: No dural venous sinus thrombosis on this non-dedicated study. IMPRESSION: 1. No acute intracranial abnormality. 2. No flow limiting stenosis or occlusion within the head or neck. 3. Emphysematous lung apices with suspected patchy atelectasis exacerbated by respiratory motion throughout the lung apices, however superimposed edema or infectious infiltrates is possible. The noncontrast head CT findings were sent to the Radiology Results Communication Center at 2:16 pm on 04/23/2024 to be communicated to a licensed caregiver, received by Dr. Pillai at 2:22 pm. [facility] Interpretation and review of laboratory results Abnormal [facility] Interpretation and review of laboratory results Abnormal [facility] No Panel InformationOrdered By: Yandel Walters on 04-23-2024 [facility] Work Phone: POCT Glucoseon 04-23-2024 Glucose [Mass/Vol] 98 mg/dL 74 - 100 mg/dL [facility] POCT urea (BUN)on 04-23-2024 Urea nitrogen [Mass/Vol] 25 mg/dL 8 - 26 mg/dL [facility] PTon 04-23-2024 INR Coag (PPP) [Relative time] 1.0 {INR} Normal [facility] Comment on above: Result Comment: Therapeutic Range: Moderate Anticoagulant Intensity: INR = 2.0-3.0 High Anticoagulant Intensity: INR = 2.5-3.5 Performed By: #### P T, CDP, PTT, TROPI, CP ####[employer] [place] [address] lab Director: Tej Locke MD PT Coag (PPP) [Time] 13.5 s Normal 11.7-14.9 [facility] Comment on above: Performed By: #### P T, CDP, PTT, TROPI, CP ####[facility] [id number] [place] [address] lab Director: Tej Locke MD Portable XR Chest AP single viewon 04-23-2024 No acute process. [facility] CONSOLIDATED EXAMINATION: ONE XRAY VIEW OF THE CHEST 04/23/2024 2:02 pm COMPARISON: 05/19/2016 HISTORY: ORDERING SYSTEM PROVIDED HISTORY: Concern for pneumonia TECHNOLOGIST PROVIDED HISTORY: Concern for pneumonia FINDINGS: The lungs are without acute focal process. There is no effusion or pneumothorax. The cardiomediastinal silhouette is stable. The osseous structures are stable. [facility] CONSOLIDATED Khalif St MD - 04/23/2024 EXAMINATION: ONE XRAY VIEW OF THE CHEST 04/23/2024 2:02 pm COMPARISON: 05/19/2016 HISTORY: ORDERING SYSTEM PROVIDED HISTORY: Concern for pneumonia TECHNOLOGIST PROVIDED HISTORY: Concern for pneumonia FINDINGS: The lungs are without acute focal process. There is no effusion or pneumothorax. The cardiomediastinal silhouette is stable. The osseous structures are stable. IMPRESSION: No acute process. [facility] Radiology Study observation (narrative) [facility] Portable XR Chest AP single viewOrdered By: Khalif St on 04-23-2024 [facility] Work Phone: Protime-INRon 04-23-2024 INR Coag (PPP) [Relative time] 1.0 {INR} [facility] Comment on above: Therapeutic Range: Moderate Anticoagulant Intensity: INR = 2.0-3.0 High Anticoagulant Intensity: INR = 2.5-3.5 PT Coag (PPP) [Time] 13.5 s [facility] [employer]ant Troponinon 04-23-2024 Interpretation and review of laboratory results Abnormal [facility] Troponin I.cardiac High sensitivity method [Mass/Vol] 20 ng/L High 0 - 14 ng/L [facility] Comment on above: High Sensitivity Tro ponin values cannot be compared with other Troponin methodologies. [facility] Troponin, High Sens 20 ng/L High 0-14 [facility] Comment on above: Result Comment: High Sensitivity Troponin values cannot be compared with other Troponin methodologies. Performed By: #### T ROPI ####[address] [address] Lab Director: Tej Locke MD Troponin I.cardiac High sensitivity method [Mass/Vol] 22 ng/L High 0 - 14 ng/L [facility] Comment on above: High Sensitivity Tro ponin values cannot be compared with other Troponin methodologies. Troponin, High Sens 22 ng/L High 0-14 [facility] Comment on above: Result Comment: High Sensitivity Troponin values cannot be compared with other Troponin methodologies. Performed By: #### P T, CDP, PTT, TROPI, CP ####[address] [address] Lab Director: Tej Locke MD UA w/Reflex Cultureon 2023 Bilirubin, SemiQt,Ur Negative Normal NEG [facility] Comment on above: Performed By: #### U MICAO, UAX #### [facility] [employer] [address] [place] [address] Director Of Graduate Medical Education: Tej Locke MD Blood, Urine Negative Normal NEG [facility] Comment on above: Performed By: #### U MICAO, UAX #### [facility] [employer] [facility] [place] [address] Director Of Graduate Medical Education: Tej Locke MD Clarity (U) Clear Normal CLEAR [facility] Comment on above: Performed By: #### U MICAO, UAX #### [address] [address] Director Of Graduate Medical Education: Tej Locke MD Color (U) Yellow Normal YEL [facility] Comment on above: Performed By: #### U MICAO, UAX #### [facility] [employer] [address] [place] [address] Director Of Graduate Medical Education: Tej Locke MD Glucose Ql (U) Negative Normal NEG [facility] Comment on above: Performed By: #### U MICAO, UAX #### [facility] [address] [address] Director Of Graduate Medical Education: Tej Locke MD Ketones Ql (U) Negative Normal NEG [facility] Comment on above: Performed By: #### U MICAO, UAX #### [address] [address] Director Of Graduate Medical Education: Tej Locke MD Leukocyte esterase Test strip Ql (U) TRACE Abnormal NEG [facility] Comment on above: Performed By: #### U MICAO, UAX #### [address] [address] Director Of Graduate Medical Education: Tej Locke MD Nitrite,Ur Negative Normal NEG [facility] Comment on above: Performed By: #### U MICAO, UAX #### [facility] [employer] [address] [place] [address] Director Of Graduate Medical Education: Tej Locke MD PH,Ur 7.0 Normal 5.0-8.0 [facility] Comment on above: Performed By: #### U MICAO, UAX #### [facility] [employer] [address] [place] [address] Director Of Graduate Medical Education: Tej Locke MD Protein Ql (U) Negative Normal NEG [facility] Comment on above: Performed By: #### U MICAO, UAX #### [facility] [employer] [address] [place] [address] Director Of Graduate Medical Education: Tej Locke MD Spec. [place],Ur 1.017 Normal 1.005-1.03 0 [facility] Comment on above: Performed By: #### U MERCEDEZ UAX #### [facility] [address] [place], [place] [phone] Director Of Graduate Medical Education: Tej Locke MD Urobilinogen,Ur Normal Normal 0.0-1.0 [facility] Comment on above: Performed By: #### U MERCEDEZ UAX #### [facility] [address] [place], [place] [id number] Director Of Graduate Medical Education: Tej Locke MD Urinalysis with Reflex to Cu ltureon 04-23-2024 Bilirubin Ql (U) Negative NEGATIVE [facility] [employer] Clarity (U) Clear Clear [facility] Color (U) Yellow Yellow [facility] Glucose Test strip (U) [Mass/Vol] Negative NEGATIVE mg/dL [facility] Hemoglobin Auto test strip Ql (U) Negative NEGATIVE [facility] Interpretation and review of laboratory results Abnormal [facility] Ketones (U) [Mass/Vol] Negative NEGAT MATT mg/dL [facility] Leukocyte esterase Test strip Ql (U) TRACE Abnormal NEGATIVE [facility] Nitrite Ql (U) Negative NEGATIVE [facility] pH (U) 7.0 [pH] 5.0 - 8.0 [facility] Protein (U) [Mass/Vol] Negative NEGAT MATT mg/dL [facility] Specific gravity (U) [Rel density] 1.017 1.005 - 1.030 [facility] Urobilinogen Qn (U) Normal 0.0 - 1. 0 EU/dL [facility] Urinalysis,Microon 4 Bacteria None Normal NONE [facility] Comment on above: Performed By: #### U MERCEDEZ UAX #### [employer] [address] [place], [place] [id number] Director Of Graduate Medical Education: Tej Locke MD Casts None Normal 0-8 [facility] Comment on above: Result Comment: Refe rence range defined for non-centrifuged specimen. Performed By: #### U MICAO, UAX #### [facility] [place] [address] Director Of Graduate Medical Education: Tej Locke MD Epithelial cells LM Ql (Urine sed) 0 TO 2 Normal 0-5 [facility] Comment on above: Performed By: #### U MICAO, UAX #### [facility] [address] [place] [address] Director Of Graduate Medical Education: Tej Locke MD Urine RBC's None Normal 0-4 [facility] Comment on above: Result Comment: Refe rence range defined for non-centrifuged specimen. Performed By: #### U MICAO, UAX #### [facility] [address] [place] [address] Director Of Graduate Medical Education: Tej Locke MD Urine WBC's 0 TO 2 Normal 0-5 [facility] Comment on above: Performed By: #### U MICAO, UAX #### [facility] [address] [place] [address] Director Of Graduate Medical Education: Tej Locke MD Venous Bld Gas,POCon 024 HCO3 (Bld) [Moles/Vol] 23.4 mmol/L Normal 22.0-29.0 [facility] Negative Base Excess (calc) 1.9 mmol/L Normal 0.0-2.0 [facility] Oxygen saturation in Blood 26.7 % Low 60.0-85.0 [facility] pCO2, Venous 41.3 mm Hg Normal 41.0-51.0 [facility] pH,Venous 7.362 Normal 7.320-7.43 0 [facility] pO2, Venous 18.7 mm Hg Low 30.0-50.0 [facility] Venous Blood Gas, POCon 04-04 HCO3 (Bld) [Moles/Vol] 23.4 mmol/L 22.0 - 29.0 mmol/L [facility] Negative Base Excess, Mark 1.9 mmol/L 0.0 - 2.0 mmol/L [facility] Oxygen saturation in Blood 26.7 % Low 60.0 - 85.0 % [facility] pCO2, Mark 41.3 [facility] pH, Mark 7.362 7.320 - 7.430 [facility] PO2, Mark 18.7 Low [facility] XR CHEST PORTABLEon 04-23-20 24 XR CHEST PORTABLE EXAMINATION: ONE XRAY VIEW OF THE CHEST 04/23/2024 2:02 pm COMPARISON: 05/19/2016 HISTORY: ORDERING SYSTEM PROVIDED HISTORY: Concern for pneumonia TECHNOLOGIST PROVIDED HISTORY: Concern for pneumonia FINDINGS: The lungs are without acute focal process. There is no effusion or pneumothorax. The cardiomediastinal silhouette is stable. The osseous structures are stable. IMPRESSION: No acute process. Interpreted by: Khalif St MD Signed by: Khalif St MD 04/23/24 Final result Normal [facility] EMG 2 Extremitieson 02-25-20 24 L5 b/l mild [facility] NVC 9-10 Nerveson 02-25-2024 L5 b/l mild [facility] [place] [Moles/volume] in Se rum or PlasmaOrdered By: Joe Davis on 12-18-2023 [place] [Moles/Vol] 1.00 mmol/L Normal 0.60-1.20 [facility] Comment on above: Result Comment: PERF ORMED BY: [place] [address] PATHOLOGIST SALES PROGRAM COORDINATOR GATO PEÑA M.D. Performed By: #### L [facility] #### [address] Cholesterol [Mass/volume] in Serum or PlasmaOrdered By: Joe Davis on 12-17-2023 Cholesterol [Mass/Vol] 133 mg/dL Low 140-200 [facility] Comment on above: Chol less than 200 m g/dl low riskChol 201-239 mg/dl borderline riskChol 240 mg/dl and greater high risk Result Comment: Chol less than 200 mg/dl low risk Chol 201-239 mg/dl borderline risk Chol 240 mg/dl and greater high risk Performed By: #### L IPID, T4F, [id number], TSH3 [id number] #### [facility] [address] [id number] [facility] Cholesterol in LDL Calc [Mas s/Vol]Ordered By: Joe Davis on 12-17-2023 Cholesterol in LDL [Mass/Vol] 66 mg/dL 0-100 [facility] Comment on above: LDL ATP III CLASSIFI CATIONLDL less than 100 mg/dL OptimalLDL 100-129 mg/dL Near or above optimalLDL 130-159 mg/dL Borderline highLDL 160-189 mg/dL HighLDL greater than 189 mg/dL Very high Cholesterol in VLDL Calc [Ma ss/Vol]Ordered By: Joe Davis on 12-17-2023 Cholesterol in VLDL [Mass/Vol] 18 mg/dL [facility] ECG 12 lead ECGon 12-17-2023 ECG 12 lead ECG [facility] [place] [address] [place], [place] [id number] Electrocardiograph Report Signed Patient: Gail Almeida MR#: [id number] : 1955 Acct:[id number] Age/Sex: 68 / F ADM Date: 12/16/23 Loc: Room: [address] [place] [address] Type: ADM IN Attending Dr: Joe Davis [...] initial forces of Septal leads Confirmed by RACHEL HUNG [facility] ([id number]) on 12/17/2023 4:48:59 PM Referred By: Electronically Signed By: MEMO CRAWFORD MD FAC Transcribed By: MUS Signed By Dayday Crawford MD 12/17/23 1649 Normal [facility] Lipid Panelon 12-17-2023 LDL Cholesterol,Calculated 66 mg/dL Normal 0-100 [facility] Comment on above: Result Comment: LDL ATP III CLASSIFICATION LDL less than 100 mg/dL Optimal LDL 100-129 mg/dL Near or above optimal LDL 130-159 mg/dL Borderline high LDL 160-189 mg/dL High LDL greater than 189 mg/dL Very high Performed By: #### L IPID, T4F, [id number], TSH3 wRFLX #### [facility] [address] Triglyceride w/Reflex 94 mg/dL Normal 0-149 [facility] Comment on above: Result Comment: TRIG ATP III CLASSIFICATION TRIG less than 150 mg/dL Normal TRIG 150-199 mg/dL Borderline high TRIG 200-500 mg/dL High TRIG greater than 500 mg/dL Very high Standard traceable to the Center for Disease Conrtrol and Prevention (CDC) test method. Performed By: #### L IPID, T4F, [id number], TSH3 wRFLX #### [facility] [address] VLDL CHOLESTEROL 18 mg/dL Normal [facility] Comment on above: Performed By: #### L IPID, T4F, [id number], TSH3 wRFLX #### [facility] [address] [place] [id number] [facility] Serum or plasma high density lipoprotein (HDL) cholesterol measurementOrdered By: Joe Davis on 12-17-2023 Cholesterol in HDL [Mass/Vol] 48 mg/dL Normal 23-92 [facility] Comment on above: HDL CHOL ATP-III CLA SSIFICATION Cardiovascular RiskHDL > or equal to 60 mg/dL LOWHDL < 40 mg/dL HIGH Result Comment: HDL CHOL ATP-III CLASSIFICATION Cardiovascular Risk HDL > or equal to 60 mg/dL LOW HDL < 40 mg/dL HIGH Performed By: #### L IPID, T4F, [id number], TSH3 wRFLX #### [facility] [address] [place] [address] Serum or plasma total choles terol/high density lipoprotein (HDL) cholesterol mass ratOrdered By: Joe Davis on 12-17-2023 Cholesterol.total/Judy sterol in HDL [Mass ratio] 2.8 {ratio} Normal <5.0 [facility] Comment on above: Performed By: #### L IPID, T4F, [id number], TSH3 wRFLX #### [facility] [address] [place] [address] Thyroid Stim Hormone w/Rflxo n 12-17-2023 Thyroid Stim Hormone w/Rflx 0.27 u[iU]/mL Low 0.45-5.33 [facility] Comment on above: Performed By: #### L IPID, T4F, [id number], TSH3 wRFLX #### [address] Thyrotropin [Units/volume] i n Serum or PlasmaOrdered By: Joe Davis on 12-17-2023 TSH Qn 0.27 m[IU]/L Low 0.45-5.33 [facility] Thyroxine (T4) free [Mass/vo lume] in Serum or PlasmaOrdered By: Joe Davis on 12-17-2023 Free T4 [Mass/Vol] 0.79 ng/dL Normal 0.61-1.12 [facility] Comment on above: Performed By: #### L IPID, T4F, [id number], TSH3 wRFLX #### [facility] [address] [place] [address] Triglyceride [Mass/volume] i n Serum or PlasmaOrdered By: Joe Davis on 12-17-2023 Triglyceride [Mass/Vol] 94 mg/dL 0-149 [facility] Comment on above: TRIG ATP III CLASSIF ICATIONTRIG less than 150 mg/dL NormalTRIG 150-199 mg/dL Borderline highTRIG 200-500 mg/dL High TRIG greater than 500 mg/dL Very highStandard traceable to the Center for Disease Conrtrol and Prevention (CDC) test method. Vitamin D 25 Hydroxy Totalon 12-17-2023 Vitamin D 25 Hydroxy Total 26.0 ng/mL Low 30-100 [facility] Comment on above: Result Comment: EDUARDO MIN D STATUS 25(OH)VITAMIN D RANGE (ng/mL) Deficient <20 Insufficient 20 to <30 Sufficient 30 to 100 Reference: Renée Woodward, Francisco CARPIO, et al. Evaluation,treatment, and prevention of vitamin D deficiency; an Endocrine Society clinical practice guideline. JCEM. 2010; 96(7):191-. PERFORMED BY: [place] [address] PATHOLOGIST SALES PROGRAM COORDINATOR GATO PEÑA M.D. Performed By: #### L IPID, T4F, [id number], TSH3 wRFLX #### [place] [id number] [facility] Vitamin D+Metabolites [Mass/ volume] in Serum or PlasmaOrdered By: Joe Davis on 12-17-2023 Vitamin D+Metabolites [Mass/Vol] 26.0 ng/mL Low 30-100 [facility] Comment on above: VITAMIN D STATUS 25( [place])VITAMIN D RANGE (ng/mL) Deficient <20 Insufficient 20 to <30Sufficient 30 to 100Reference: Renée Woodward, Francisco CARPIO, et al. Evaluation,treatment, and prevention of vitamin D deficiency; an Endocrine Society clinical practice guideline. JCEM. 2010; 96(7):1911-. Alanine aminotransferase [En zymatic activity/volume] in Serum or PlasmaOrdered By: Juve Spears on 12-16-2023 ALT [Catalytic activity/Vol] 14 U/L Normal 7-52 [facility] Comment on above: Performed By: #### L IPID, T4F, [id number], TSH3 wRFLX #### [place] [id number] [place] Albumin [Mass/volume] in Ser um or Plasma by Bromocresol green (BCG) dye binding methoOrdered By: Juve Spears on 12-16-2023 Albumin BCG dye [Mass/Vol] 4.1 g/dL 3.5-5.7 [facility] Alkaline phosphatase [Enzyma tic activity/volume] in Serum or PlasmaOrdered By: Juve Spears on 12-16-2023 ALP [Catalytic activity/Vol] 101 U/L Normal 34-104 [facility] Comment on above: Performed By: #### L IPID, T4F, [id number], TSH3 wRFLX #### [facility] [address] Amphetamine Screen Ql (U)Ord ered By: Juve Spears on 12-16-2023 Amphetamines Ql (U) Negative Negative [facility] Aspartate aminotransferase [ Enzymatic activity/volume] in Serum or PlasmaOrdered By: Juve Spears on 12-16-2023 AST [Catalytic activity/Vol] 16 U/L Normal 13-39 [facility] Comment on above: Performed By: #### L IPID, T4F, [id number], TSH3 wRFLX #### [facility] [address] [place] [address] Automated basophil %Ordered By: Juve Spears on 12-16-2023 Basophils/100 WBC (Bld) 0.9 % Normal . [facility] Comment on above: Performed By: #### L IPID, T4F, [id number], TSH3 wRFLX #### [facility] [address] [place] [address] Automated basophil countOrde red By: Juve Spears on 12-16-2023 Basophils (Bld) [#/Vol] 0.1 10*3/uL Normal 0.0-0.2 [facility] Comment on above: Result Comment: PERF ORMED BY: [place] [address] PATHOLOGIST SALES PROGRAM COORDINATOR GATO PEÑA M.D. Performed By: #### L IPID, T4F, [id number], TSH3 wRFLX #### [facility] [address] Automated blood monocyte cou ntOrdered By: Juve Spears on 12-16-2023 Monocytes (Bld) [#/Vol] 0.5 10*3/uL Normal 0.0-0.8 [facility] Comment on above: Performed By: #### L IPID, T4F, [id number], TSH3 wRFLX #### [address] Automated eosinophil %Ordere d By: Juve Spears on 12-16-2023 Eosinophils/100 WBC (Bld) 3.9 % Normal . [facility] Comment on above: Performed By: #### L IPID, T4F, [id number], TSH3 wRFLX #### [address] Automated eosinophil countOr dered By: Juve Spears on 12-16-2023 Eosinophils (Bld) [#/Vol] 0.2 10*3/uL Normal 0.0-0.45 [facility] Comment on above: Performed By: #### L IPID, T4F, [id number], TSH3 wRFLX #### [address] Automated monocyte %Ordered By: Juve Spears on 12-16-2023 Monocytes/100 WBC (Bld) 7.5 % Normal . [facility] Comment on above: Performed By: #### L IPID, T4F, [id number], TSH3 wRFLX #### [address] Automated neutrophil %Ordere d By: Juve Spears on 12-16-2023 Neutrophils/100 WBC (Bld) 62.8 % Normal . [facility] Comment on above: Performed By: #### L IPID, T4F, [id number], TSH3 wRFLX #### [address] Barbiturates [Presence] in U rine by Screen methodOrdered By: Juve Spears on 12-16-2023 Barbiturates Screen Ql (U) Negative Negative [facility] Benzodiazepines Screen Ql (U )Ordered By: Juve Spears on 12-16-2023 Benzodiazepines Ql (U) Negative Negative [facility] Benzoylecgonine [Presence] i n Urine by Screen methodOrdered By: Juve Spears on 12-16-2023 Benzoylecgonine Screen Ql (U) Negative Negative [facility] Bilirubin Test strip Ql (U)O rdered By: Juve Spears on 12-16-2023 Bilirubin Ql (U) Negative Negative [facility] Bilirubin.total [Mass/volume ] in Serum or PlasmaOrdered By: Juve Spears on 12-16-2023 Bilirubin [Mass/Vol] 0.3 mg/dL Normal 0.3-1.0 [facility] Comment on above: Performed By: #### L IPID, T4F, [id number], TSH3 wRFLX #### [facility] [address] [place] [address] [place] Calcium [Mass/volume] in Ser um or PlasmaOrdered By: Juve Spears on 12-16-2023 Calcium [Mass/Vol] 9.8 mg/dL Normal 8.6-10.3 [facility] Comment on above: Performed By: #### L IPID, T4F, [id number], TSH3 wRFLX #### [facility] [address] [place] [address] [place] Cannabinoids [Presence] in U rine by Screen methodOrdered By: Juve Spears on 12-16-2023 Cannabinoids Screen Ql (U) Negative Negative [facility] Comment on above: These are unconfirme d results and should not be used for legal purposes. Drug Cut-Off Concentration: AMPH 1000 ng/mL PJ 200 ng/mL BETSY 200 ng/mL COCM 300 ng/mL OP 300 ng/mL PCP 25 ng/mL THC 20 ng/mL Carbon dioxide, total [Moles /volume] in Serum or PlasmaOrdered By: Juve Spears on 12-16-2023 CO2 [Moles/Vol] 22.9 mmol/L Normal 21.0-31.0 [facility] Comment on above: Performed By: #### L IPID, T4F, [id number], TSH3 wRFLX #### [address] Chloride [Moles/volume] in S kishan or PlasmaOrdered By: Juve Spears on 12-16-2023 Chloride [Moles/Vol] 110 mmol/L High 98-107 [facility] Comment on above: Performed By: #### L IPID, T4F, [id number], TSH3 wRFLX #### [address] Color of Urine by AutoOrdere d By: Juve Spears on 12-16-2023 Color (U) Colorless Normal Yellow [facility] Comment on above: Order Comment: Name Collection Type:: Clean-Voided Midstream Performed By: #### L ITH #### [address] Complete Blood Count Auto Di ffon 12-16-2023 Mean Corpuscular HGB Conc 33.6 g/dL Normal 32.0-35.0 [facility] Comment on above: Performed By: #### L IPID, T4F, [id number], TSH3 wRFLX #### [address] Monocytes/100 WBC (Bld) 17.55 % Normal 0.00-20.00 [facility] Comment on above: Performed By: #### L IPID, T4F, [id number], TSH3 wRFLX #### [address] NRBC% 0.1 /100{WBC} Normal 0-0.5 [facility] Comment on above: Performed By: #### L IPID, T4F, [id number], TSH3 wRFLX #### [address] Comprehensive Metabolic Pane eusebia 12-16-2023 Albumin [Mass/Vol] 4.1 g/dL Normal 3.5-5.7 [facility] Comment on above: Performed By: #### L IPID, T4F, [id number], TSH3 wRFLX #### [place] [address] [place] Creatinine Clr Calc Pharmacy 32.44 Normal [facility] Comment on above: Result Comment: PERF ORMED BY: [place] [address] PATHOLOGIST SALES PROGRAM COORDINATOR GATO PEÑA M.D. Performed By: #### L IPID, T4F, [id number], TSH3 wRFLX #### [place] [address] [place] GFR/1.73 sq M.predicted MDRD (S/P/Bld) [Vol rate/Area] 37.657 mL/min/{1.73_m2} Normal [facility] Comment on above: Performed By: #### L IPID, T4F, [id number], TSH3 wRFLX #### [place] [address] [place] Creatinine [Mass/volume] in Serum or PlasmaOrdered By: Juve Spears on 12-16-2023 Creatinine [Mass/Vol] 1.51 mg/dL High 0.60-1.20 [facility] Comment on above: Performed By: #### L IPID, T4F, [id number], TSH3 wRFLX #### [place] [address] [place] Drug Screen,Urineon 12-16-19 24 Amphetamine Screen,Urine Negative Normal Negative [facility] Comment on above: Performed By: #### L ITH #### [place] [address] [place] Barbiturate Screen,Urine Negative Normal Negative [facility] Comment on above: Performed By: #### L ITH #### [place] [address] [place] Benzodiazepines Screen,Urine Negative Normal Negative [facility] Comment on above: Performed By: #### L ITH #### [address] Cannabinoid Screen,Urine Negative Normal Negative [facility] Comment on above: Result Comment: Thes e are unconfirmed results and should not be used for legal purposes. Drug Cut-Off Concentration: AMPH 1000 ng/mL PJ 200 ng/mL BETSY 200 ng/mL COCM 300 ng/mL OP 300 ng/mL PCP 25 ng/mL THC 20 ng/mL PERFORMED BY: [place] [address] PATHOLOGIST SALES PROGRAM COORDINATOR GATO PEÑA M.D. Performed By: #### L ITH #### [address] Cocaine Screen,Urine Negative Normal Negative [facility] Comment on above: Performed By: #### L ITH #### [address] Opiate Screen,Urine Negative Normal Negative [facility] Comment on above: Performed By: #### L ITH #### [address] Phencyclidine Screen,Urine Negative Normal Negative [facility] Comment on above: Performed By: #### L ITH #### [address] Erythrocyte distribution wid th [Ratio] by Automated countOrdered By: Juve Spears on 12-16-2023 Erythrocyte distribution width (RBC) [Ratio] 14.6 % Normal 11.9-15.3 [facility] Comment on above: Performed By: #### L IPID, T4F, [id number], TSH3 wRFLX #### [address] Erythrocytes [#/volume] in B lood by Automated countOrdered By: Juve Spears on 12-16-2023 RBC (Bld) [#/Vol] 3.85 10*6/uL Normal 3.60-5.00 [facility] Comment on above: Performed By: #### L IPID, T4F, [id number], TSH3 wRFLX #### [address] Ethanol [Mass/volume] in Ser um or PlasmaOrdered By: Juve Spears on 12-16-2023 Ethanol [Mass/Vol] mg/dL Normal [facility] Comment on above: Performed By: #### L IPID, T4F, [id number], TSH3 wRFLX #### [facility] [address] [place] [id number] [place] Ethanol [Mass/Vol] TNP [facility] Comment on above: Test not performed Ethyl Alcohol Profileon 12-01 Percent Ethanol Not performed Normal [facility] Comment on above: Result Comment: PERF ORMED BY: [place] [address] PATHOLOGIST SALES PROGRAM COORDINATOR GATO PEÑA M.D. Performed By: #### L IPID, T4F, [id number], TSH3 wRFLX #### [facility] [address] [place] [id number] [place] Glucose [Mass/volume] in Ser um or PlasmaOrdered By: Juve Spears on 12-16-2023 Glucose [Mass/Vol] 138 mg/dL High 70-100 [facility] Comment on above: ADA recommended refe rence rangeRandom Glucose Reference Range is dependent on time and content of last meal. Glucose of more than 200 mg/dL in a nonstressed, ambulatory subject supports the diagnosis of Diabetes Mellitus. Result Comment: [place] om Glucose Reference Range is dependent on time and content of last meal. Glucose of more than 200 mg/dL in a nonstressed, ambulatory subject supports the diagnosis of Diabetes Mellitus. ADA recommended reference range Performed By: #### L IPID, T4F, [id number], TSH3 wRFLX #### [facility] [address] [place] [address] [place] Glucose [Mass/volume] in Uri ne by Test stripOrdered By: Juve Spears on 12-16-2023 Glucose Test strip (U) [Mass/Vol] Normal mg/dL Normal [facility] Hematocrit [Volume Fraction] of Blood by Automated countOrdered By: Juve Spears on 12-16-2023 Hematocrit (Bld) [Volume fraction] 36.4 % Normal 34.0-46.4 [facility] Comment on above: Performed By: #### L IPID, T4F, [id number], TSH3 wRFLX #### [facility] [address] [place] [address] [place] Hemoglobin Test strip Ql (U) Ordered By: Juve Spears on 12-16-2023 Hemoglobin Ql (U) Negative Negative [facility] Hemoglobin [Mass/volume] in BloodOrdered By: Juve Spears on 12-16-2023 Hemoglobin (Bld) [Mass/Vol] 12.2 g/dL Normal 11.8-15.4 [facility] Comment on above: Performed By: #### L IPID, T4F, [id number], TSH3 wRFLX #### [facility] [address] [place] [address] [place] Ketones [Presence] in Urine by Test stripOrdered By: Juve Spears on 12-16-2023 Ketones Ql (U) Negative Normal Negative [facility] Comment on above: Order Comment: Name Collection Type:: Clean-Voided Midstream Performed By: #### L ITH #### [facility] [address] [place] [address] [place] Leukocyte esterase [Presence ] in Urine by Test stripOrdered By: Juve Spears on 12-16-2023 Leukocyte esterase Test strip Ql (U) Negative Normal Negative [facility] Comment on above: Order Comment: Name Collection Type:: Clean-Voided Midstream Performed By: #### L ITH #### [facility] [address] [place] [address] [place] Leukocytes [#/volume] correc cornelia for nucleated erythrocytes in Blood by Automated counOrdered By: Juve Spears on 12-16-2023 WBC corrected for nucl RBC Auto (Bld) [#/Vol] 6.3 10*3/uL 3.8-11.6 [facility] Leukocytes [#/volume] in Blo od by Automated countOrdered By: Juve Spears on 12-16-2023 WBC (Bld) [#/Vol] 6.3 10*3/uL Normal 3.8-11.6 [facility] Comment on above: Performed By: #### L IPID, T4F, [id number], TSH3 wRFLX #### [facility] [address] [place] [address] [place] Lymphocytes [#/volume] in Bl ood by Automated countOrdered By: Juve Spears on 12-16-2023 Lymphocytes (Bld) [#/Vol] 1.6 10*3/uL Normal 1.00-4.8 [facility] Comment on above: Performed By: #### L IPID, T4F, [id number], TSH3 wRFLX #### [address] Lymphocytes/100 leukocytes i n Blood by Automated countOrdered By: Juve Spears on 12-16-2023 Lymphocytes/100 WBC (Bld) 24.9 % Normal . [facility] Comment on above: Performed By: #### L IPID, T4F, [id number], TSH3 wRFLX #### [address] MCH [Entitic mass] by Automa cornelia countOrdered By: Juve Spears on 12-16-2023 MCH (RBC) [Entitic mass] 31.7 pg Normal 24.7-34.3 [facility] Comment on above: Performed By: #### L IPID, T4F, [id number], TSH3 wRFLX #### [address] MCHC Auto (RBC) [Mass/Vol]Or dered By: Juve Spears on 12-16-2023 MCHC (RBC) [Mass/Vol] 33.6 g/dL 32.0-35.0 [facility] MCV [Entitic volume] by Auto mated countOrdered By: Juve Spears on 12-16-2023 MCV (RBC) [Entitic vol] 94.5 fL Normal 80-100 [facility] Comment on above: Performed By: #### L IPID, T4F, [id number], TSH3 wRFLX #### [address] Monocyte distribution width [Entitic volume] in Blood by AutomatedOrdered By: Juve Spears on 12-16-2023 Monocyte distribution width Auto (Bld) [Entitic vol] 17.55 % 0.00-20.00 [facility] Neutrophils [#/volume] in Bl ood by Automated countOrdered By: Juve Spears on 12-16-2023 Neutrophils (Bld) [#/Vol] 4.0 10*3/uL Normal 1.8-7.7 [facility] Comment on above: Performed By: #### L IPID, T4F, [id number], TSH3 wRFLX #### [facility] [address] [place] [address] [place] Nitrite Test strip Ql (U)Ord ered By: Juve Spears on 12-16-2023 Nitrite Ql (U) Negative Negative [facility] No Panel InformationOrdered By: Juve Spears on 12-16-2023 Estimated GFR (CKD-EPI) 37.657 mL/Min [facility] Creatinine Clearance (Chem 32.44 [facility] Nucleated erythrocytes [Pres ence] in Blood by Automated countOrdered By: Juve Spears on 12-16-2023 Nucleated RBC Auto Ql (Bld) 0.1 /100{WBC} 0-0.5 [facility] Opiates [Presence] in Urine by Screen methodOrdered By: Juve Spears on 12-16-2023 Opiates Screen Ql (U) Negative Negative [facility] Phencyclidine Screen Ql (U)O rdered By: Juve Spears on 12-16-2023 Phencyclidine Ql (U) Negative Negative [facility] Platelet mean volume [Entiti c volume] in Blood by Automated countOrdered By: Juve Spears on 12-16-2023 Platelet mean volume (Bld) [Entitic vol] 8.4 fL Normal 6.3-10.7 [facility] Comment on above: Performed By: #### L IPID, T4F, [id number], TSH3 wRFLX #### [facility] [address] [place] [id number] [place] Platelets [#/volume] in Bloo d by Automated countOrdered By: Juve Spears on 12-16-2023 Platelets (Bld) [#/Vol] 229 10*3/uL Normal 150-450 [facility] Comment on above: Performed By: #### L IPID, T4F, [id number], TSH3 wRFLX #### [facility] [address] Potassium [Moles/volume] in Serum or PlasmaOrdered By: Juve Spears on 12-16-2023 Potassium [Moles/Vol] 3.8 mmol/L Normal 3.5-5.1 [facility] Comment on above: Performed By: #### L IPID, T4F, [id number], TSH3 wRFLX #### [facility] [address] Protein Test strip (U) [Mass /Vol]Ordered By: Juve Spears on 12-16-2023 Protein (U) [Mass/Vol] Negative Negative [facility] Protein [Mass/volume] in Ser um or PlasmaOrdered By: Juve Spears on 12-16-2023 Protein [Mass/Vol] 6.6 g/dL Normal 6.4-8.9 [facility] Comment on above: Performed By: #### L IPID, T4F, [id number], TSH3 wRFLX #### [facility] [address] Serum globulin measurement b y calculation (mass/volume)Ordered By: Juve Spears on 12-16-2023 Globulin (S) [Mass/Vol] 2.5 g/dL Normal [facility] Comment on above: Performed By: #### L IPID, T4F, [id number], TSH3 wRFLX #### [facility] [address] Serum or plasma albumin/glob ulin mass ratioOrdered By: Juve Spears on 12-16-2023 Albumin/Globulin [Mass ratio] 1.6 {ratio} Normal [facility] Comment on above: Performed By: #### L IPID, T4F, [id number], TSH3 wRFLX #### [facility] [address] Serum or plasma anion gap de terminationOrdered By: Juve Spears on 12-16-2023 Anion gap [Moles/Vol] 9.9 mmol/L Normal 6.0-15.0 [facility] Comment on above: Performed By: #### L IPID, T4F, [id number], TSH3 wRFLX #### [facility] [address] Sodium [Moles/volume] in Ser um or PlasmaOrdered By: Juve Spears on 12-16-2023 Sodium [Moles/Vol] 139 mmol/L Normal 136-145 [facility] Comment on above: Performed By: #### L IPID, T4F, [id number], TSH3 wRFLX #### [address] Specific gravity Test strip (U) [Rel density]Ordered By: Juve Spears on 12-16-2023 Specific gravity (U) [Rel density] 1.005 1.001-1.03 0 [facility] Urea nitrogen [Mass/volume] in Serum or PlasmaOrdered By: Juve Spears on 12-16-2023 Urea nitrogen [Mass/Vol] 26 mg/dL High 7-25 [facility] Comment on above: Performed By: #### L IPID, T4F, [id number], TSH3 wRFLX #### [place] [address] [place] Urinalysison 12-16-2023 Bilirubin,Urine Negative Normal Negative [facility] Comment on above: Order Comment: Name Collection Type:: Clean-Voided Midstream Performed By: #### L ITH #### [address] Glucose Ql (U) Normal Normal Normal [facility] Comment on above: Order Comment: Name Collection Type:: Clean-Voided Midstream Performed By: #### L ITH #### [place] [address] [place] Nitrite,Urine Negative Normal Negative [facility] Comment on above: Order Comment: Name Collection Type:: Clean-Voided Midstream Performed By: #### L ITH #### [address] Occult Blood,Urine Negative Normal Negative [facility] Comment on above: Order Comment: Name Collection Type:: Clean-Voided Midstream Result Comment: PERF ORMED BY: [place] [address] PATHOLOGIST SALES PROGRAM COORDINATOR GATO PEÑA M.D. Performed By: #### L ITH #### [address] Protein,Urine Negative Normal Negative [facility] Comment on above: Order Comment: Name Collection Type:: Clean-Voided Midstream Performed By: #### L ITH #### [address] Specificy [place],Urine 1.005 Normal 1.00 1-1.03 0 [facility] Comment on above: Order Comment: Name Collection Type:: Clean-Voided Midstream Performed By: #### L ITH #### [address] Urobilinogen,Urine Normal Normal Normal [facility] Comment on above: Order Comment: Name Collection Type:: Clean-Voided Midstream Performed By: #### L ITH #### [address] Urine appearanceOrdered By: Juve Spears on 12-16-2023 Appearance (U) Clear Normal Clear [facility] Comment on above: Order Comment: Name Collection Type:: Clean-Voided Midstream Performed By: #### L ITH #### [address] Urobilinogen Test strip (U) [Mass/Vol]Ordered By: Juve Spears on 12-16-2023 Urobilinogen (U) [Mass/Vol] Normal mg/dL Normal [facility] pH of Urine by Test stripOrd ered By: Juve Spears on 12-16-2023 pH (U) 7.0 [pH] Normal 5.0-9.0 [facility] Comment on above: Order Comment: Name Collection Type:: Clean-Voided Midstream Performed By: #### L [facility] #### [facility] [address] CNOVon 09-27-2023 CNOV Office Visit (OTOLMN ) -------- GAIL ALMEIDA ([id number]) 1955 F Date Time Provider Department 09/27/23 9:45 AM YANDEL DANIEL OTOLMN During your visit today, we recorded the following information about you: Yandel Daniel MD 09/28/2023 1:37 PM Signed Gail Almeida [id number] September 27, 2023 [facility] Note CC: Follow-up thyroid cancer [...] by mouth every 12 hours as needed. levodj-qiifrtsm-cwszeld (ENZADYNE) 9,000-112,500- 112,500 unit capsule Take 1 [...] Gail Miller (more content not included)... Normal [facility] Basic Metabolic Panelon 08-01 Creatinine Clr Calc Pharmacy 37.44 Normal [facility] Comment on above: Order Comment: Comme nt Prior to surgery on 08/19 Result Comment: PERF ORMED BY: [place] [address] PATHOLOGIST SALES PROGRAM COORDINATOR GATO PEÑA M.D. Performed By: #### L IPID, T4F, [id number], TSH3 wRFLX #### [address] GFR/1.73 sq M.predicted MDRD (S/P/Bld) [Vol rate/Area] 42.961 mL/min/{1.73_m2} Normal [facility] Comment on above: Order Comment: Comme nt Prior to surgery on 08/19 Performed By: #### L IPID, T4F, [id number], TSH3 wRFLX #### [facility] [address] [place] [id number] [place] Calcium [Mass/volume] in Ser um or PlasmaOrdered By: Lucy Carolina on 08-20-2023 Calcium [Mass/Vol] 9.7 mg/dL Normal 8.6-10.3 [facility] Comment on above: Order Comment: Comme nt Prior to surgery on 08/19 Performed By: #### L IPID, T4F, [id number], TSH3 wRFLX #### [facility] [address] [place] [id number] [place] Carbon dioxide, total [Moles /volume] in Serum or PlasmaOrdered By: Lucy Carolina on 08-20-2023 CO2 [Moles/Vol] 22.2 mmol/L Normal 21.0-31.0 [facility] Comment on above: Order Comment: Comme nt Prior to surgery on 08/19 Performed By: #### L IPID, T4F, [id number], TSH3 wRFLX #### [facility] [address] [place] [id number] [place] Chloride [Moles/volume] in S kishan or PlasmaOrdered By: Lucy Carolina on 08-20-2023 Chloride [Moles/Vol] 112 mmol/L High 98-107 [facility] Comment on above: Order Comment: Comme nt Prior to surgery on 08/19 Performed By: #### L IPID, T4F, [id number], TSH3 wRFLX #### [facility] [address] [place] [id number] [place] Creatinine [Mass/volume] in Serum or PlasmaOrdered By: Lucy Carolina on 08-20-2023 Creatinine [Mass/Vol] 1.36 mg/dL High 0.60-1.20 [facility] Comment on above: Order Comment: Comme nt Prior to surgery on 08/19 Performed By: #### L IPID, T4F, [id number], TSH3 wRFLX #### [facility] [address] [place] [id number] [place] Glucose [Mass/volume] in Ser um or PlasmaOrdered By: Lucy Carolina on 08-20-2023 Glucose [Mass/Vol] 98 mg/dL Normal 70-100 [facility] Comment on above: ADA recommended refe rence rangeRandom Glucose Reference Range is dependent on time and content of last meal. Glucose of more than 200 mg/dL in a nonstressed, ambulatory subject supports the diagnosis of Diabetes Mellitus. Order Comment: Comme nt Prior to surgery on 08/19 Result Comment: [place] om Glucose Reference Range is dependent on time and content of last meal. Glucose of more than 200 mg/dL in a nonstressed, ambulatory subject supports the diagnosis of Diabetes Mellitus. ADA recommended reference range Performed By: #### L IPID, T4F, [id number], TSH3 wRFLX #### [facility] [address] [place] [address] No Panel InformationOrdered By: Lucy Carolina on 08-20-2023 Estimated GFR (CKD-EPI) 42.961 mL/Min [facility] Creatinine Clearance (Chem 37.44 [facility] Potassium [Moles/volume] in Serum or PlasmaOrdered By: Lucy Carolina on 08-20-2023 Potassium [Moles/Vol] 4.5 mmol/L Normal 3.5-5.1 [facility] Comment on above: Order Comment: Comme nt Prior to surgery on 08/19 Performed By: #### L IPID, T4F, [id number], TSH3 wRFLX #### [facility] [address] [place] [address] Serum or plasma anion gap de terminationOrdered By: Lucy Carolina on 08-20-2023 Anion gap [Moles/Vol] 12.3 mmol/L Normal 6.0-15.0 [facility] Comment on above: Order Comment: Comme nt Prior to surgery on 08/19 Performed By: #### L IPID, T4F, [id number], TSH3 wRFLX #### [facility] [address] Sodium [Moles/volume] in Ser um or PlasmaOrdered By: Lucy Carolina on 08-20-2023 Sodium [Moles/Vol] 142 mmol/L Normal 136-145 [facility] Comment on above: Order Comment: Comme nt Prior to surgery on 08/19 Performed By: #### L IPID, T4F, [id number], TSH3 wRFLX #### [facility] [address] [place] [address] [place] Urea nitrogen [Mass/volume] in Serum or PlasmaOrdered By: Lucy Carolina on 08-20-2023 Urea nitrogen [Mass/Vol] 39 mg/dL High 7-25 [facility] Comment on above: Order Comment: Comme nt Prior to surgery on 08/19 Performed By: #### L IPID, T4F, [id number], TSH3 wRFLX #### [facility] [address] [place] [id number] [place] Cholesterol [Mass/volume] in Serum or PlasmaOrdered By: Joe Davis on 08-16-2023 Cholesterol [Mass/Vol] 150 mg/dL Normal 140-200 [facility] Comment on above: Chol less than 200 m g/dl low riskChol 201-239 mg/dl borderline riskChol 240 mg/dl and greater high risk Result Comment: Chol less than 200 mg/dl low risk Chol 201-239 mg/dl borderline risk Chol 240 mg/dl and greater high risk Performed By: #### L IPID, T4F, [id number], TSH3 wRFLX #### [facility] [address] [place] [id number] [place] Cholesterol in LDL Calc [Mas s/Vol]Ordered By: Joe Davis on 08-16-2023 Cholesterol in LDL [Mass/Vol] 74 mg/dL 0-100 [facility] Comment on above: LDL ATP III CLASSIFI CATIONLDL less than 100 mg/dL OptimalLDL 100-129 mg/dL Near or above optimalLDL 130-159 mg/dL Borderline highLDL 160-189 mg/dL HighLDL greater than 189 mg/dL Very high Cholesterol in VLDL Calc [Ma ss/Vol]Ordered By: Joe Davis on 08-16-2023 Cholesterol in VLDL [Mass/Vol] 11 mg/dL [facility] ECG 12 lead ECGon 08-16-2023 ECG 12 lead ECG [facility] [place] [address] [place] [id number] Electrocardiograph Report Signed Patient: Gail Almeida MR#: [id number] : 1955 Acct:[id number] Age/Sex: 67 / F ADM Date: 08/15/23 Loc: Room: [address] [place] [address] Type: ADM IN Attending Dr: Joe Davis MD Ordering Provider: Joe Davis MD Date of Service: 08/16/23 ECG/ECG 12 lead ECG: baseline for [employer] meds Copies to: Test Reason : Blood [...] Espana MD 0 08/16/23 1438 Normal [facility] Lipid Panelon 08-16-2023 LDL Cholesterol,Calculated 74 mg/dL Normal 0-100 [facility] Comment on above: Result Comment: LDL ATP III CLASSIFICATION LDL less than 100 mg/dL Optimal LDL 100-129 mg/dL Near or above optimal LDL 130-159 mg/dL Borderline high LDL 160-189 mg/dL High LDL greater than 189 mg/dL Very high Performed By: #### L IPID, T4F, [id number], TSH3 wRFLX #### [place] [address] Triglyceride w/Reflex 57 mg/dL Normal 0-149 [facility] Comment on above: Result Comment: TRIG ATP III CLASSIFICATION TRIG less than 150 mg/dL Normal TRIG 150-199 mg/dL Borderline high TRIG 200-500 mg/dL High TRIG greater than 500 mg/dL Very high Standard traceable to the Center for Disease Conrtrol and Prevention (CDC) test method. Performed By: #### L IPID, T4F, [id number], TSH3 wRFLX #### [address] VLDL CHOLESTEROL 11 mg/dL Normal [facility] Comment on above: Performed By: #### L IPID, T4F, [id number], TSH3 wRFLX #### [address] [place] [Moles/volume] in Se rum or PlasmaOrdered By: Joe Davis on 08-16-2023 [place] [Moles/Vol] 0.50 mmol/L Low 0.60-1.20 [facility] Comment on above: Result Comment: PERF ORMED BY: [place] [address] PATHOLOGIST SALES PROGRAM COORDINATOR GATO PEÑA M.D. Performed By: #### L IPID, T4F, [id number], TSH3 wRFLX #### [address] Serum or plasma high density lipoprotein (HDL) cholesterol measurementOrdered By: Joe Davis on 08-16-2023 Cholesterol in HDL [Mass/Vol] 65 mg/dL Normal 23-92 [facility] Comment on above: HDL CHOL ATP-III CLA SSIFICATION Cardiovascular RiskHDL > or equal to 60 mg/dL LOWHDL < 40 mg/dL HIGH Result Comment: HDL CHOL ATP-III CLASSIFICATION Cardiovascular Risk HDL > or equal to 60 mg/dL LOW HDL < 40 mg/dL HIGH Performed By: #### L IPID, T4F, [id number], TSH3 wRFLX #### [address] [address] [place] Serum or plasma total choles terol/high density lipoprotein (HDL) cholesterol mass ratOrdered By: Joe Davis on 08-16-2023 Cholesterol.total/Judy sterol in HDL [Mass ratio] 2.3 {ratio} Normal <5.0 [facility] Comment on above: Performed By: #### L IPID, T4F, [id number], TSH3 wRFLX #### [facility] [address] [place] [address] Thyroid Stim Hormone w/Rflxo n 08-16-2023 Thyroid Stim Hormone w/Rflx 9.75 u[iU]/mL High 0.45-5.33 [facility] Comment on above: Performed By: #### L IPID, T4F, [id number], TSH3 wRFLX #### [facility] [address] [place] [address] Thyrotropin [Units/volume] i n Serum or PlasmaOrdered By: Joe Davis on 08-16-2023 TSH Qn 9.75 m[IU]/L 0.45-5.33 [facility] Thyroxine (T4) free [Mass/vo lume] in Serum or PlasmaOrdered By: Joe Davis on 08-16-2023 Free T4 [Mass/Vol] 0.69 ng/dL Normal 0.61-1.12 [facility] Comment on above: Performed By: #### L IPID, T4F, [id number], TSH3 wRFLX #### [facility] [address] [place] [address] Triglyceride [Mass/volume] i n Serum or PlasmaOrdered By: Joe Davis on 08-16-2023 Triglyceride [Mass/Vol] 57 mg/dL 0-149 [facility] Comment on above: TRIG ATP III CLASSIF ICATIONTRIG less than 150 mg/dL NormalTRIG 150-199 mg/dL Borderline highTRIG 200-500 mg/dL High TRIG greater than 500 mg/dL Very highStandard traceable to the Center for Disease Conrtrol and Prevention (CDC) test method. Vitamin D 25 Hydroxy Totalon 08-16-2023 Vitamin D 25 Hydroxy Total 28.6 ng/mL Low 30-100 [facility] Comment on above: Result Comment: EDUARDO MIN D STATUS 25(OH)VITAMIN D RANGE (ng/mL) Deficient <20 Insufficient 20 to <30 Sufficient 30 to 100 Reference: Renée Woodward, Francisco CARPIO, et al. Evaluation,treatment, and prevention of vitamin D deficiency; an Endocrine Society clinical practice guideline. JCEM. 2010; 96(7):1911-. PERFORMED BY: [place] [address] PATHOLOGIST SALES PROGRAM COORDINATOR GATO PEÑA M.D. Performed By: #### L IPID, T4F, [id number], TSH3 wRFLX #### [facility] [address] [place] [address] Vitamin D+Metabolites [Mass/ volume] in Serum or PlasmaOrdered By: Joe Davis on 08-16-2023 Vitamin D+Metabolites [Mass/Vol] 28.6 ng/mL 30-100 [facility] Comment on above: VITAMIN D STATUS 25( [place])VITAMIN D RANGE (ng/mL) Deficient <20 Insufficient 20 to <30Sufficient 30 to 100Reference: Renée Woodward, Francisco CARPIO, et al. Evaluation,treatment, and prevention of vitamin D deficiency; an Endocrine Society clinical practice guideline. JCEM. 2010; 96(7):1911-. Alanine aminotransferase [En zymatic activity/volume] in Serum or PlasmaOrdered By: Nimesh Westfall on 08-15-2023 ALT [Catalytic activity/Vol] 33 U/L Normal 7-52 [facility] Comment on above: Performed By: #### L ITH #### [facility] [address] [place] [address] [place] Albumin [Mass/volume] in Ser um or Plasma by Bromocresol green (BCG) dye binding methoOrdered By: Nimesh Westfall on 08-15-2023 Albumin BCG dye [Mass/Vol] 4.5 g/dL 3.5-5.7 [facility] Alkaline phosphatase [Enzyma tic activity/volume] in Serum or PlasmaOrdered By: Nimesh Westfall on 08-15-2023 ALP [Catalytic activity/Vol] 96 U/L Normal 34-104 [facility] Comment on above: Performed By: #### L ITH #### [address] Amphetamine Screen Ql (U)Ord ered By: Nimesh Westfall on 08-15-2023 Amphetamines Ql (U) Negative Negative [facility] Aspartate aminotransferase [ Enzymatic activity/volume] in Serum or PlasmaOrdered By: Nimesh Westfall on 08-15-2023 AST [Catalytic activity/Vol] 21 U/L Normal 13-39 [facility] Comment on above: Performed By: #### L ITH #### [address] Automated basophil %Ordered By: Nimesh Westfall on 08-15-2023 Basophils/100 WBC (Bld) 1.3 % Normal . [facility] Comment on above: Performed By: #### L ITH #### [address] Automated basophil countOrde red By: Nimesh Westfall on 08-15-2023 Basophils (Bld) [#/Vol] 0.1 10*3/uL Normal 0.0-0.2 [facility] Comment on above: Result Comment: PERF ORMED BY: [place] [address] PATHOLOGIST SALES PROGRAM COORDINATOR GATO PEÑA M.D. Performed By: #### L ITH #### [address] Automated blood monocyte cou ntOrdered By: Nimesh Westfall on 08-15-2023 Monocytes (Bld) [#/Vol] 0.5 10*3/uL Normal 0.0-0.8 [facility] Comment on above: Performed By: #### L ITH #### [address] Automated eosinophil %Ordere d By: Nimesh Westfall on 08-15-2023 Eosinophils/100 WBC (Bld) 6.4 % Normal . [facility] Comment on above: Performed By: #### L ITH #### [address] Automated eosinophil countOr dered By: Nimesh Westfall on 08-15-2023 Eosinophils (Bld) [#/Vol] 0.3 10*3/uL Normal 0.0-0.45 [facility] Comment on above: Performed By: #### L ITH #### [address] Automated erythrocytes count in urine sediment (number/area)Ordered By: Nimesh Westfall on 08-15-2023 RBC Auto (Urine sed) [#/Area] None seen [HPF] 0-4 [facility] Automated leukocytes count i n urine sediment (number/area)Ordered By: Nimesh Westfall on 08-15-2023 WBC Auto (Urine sed) [#/Area] 3-4 [HPF] 0-4 [facility] Automated monocyte %Ordered By: Nimesh Westfall on 08-15-2023 Monocytes/100 WBC (Bld) 10.6 % Normal . [facility] Comment on above: Performed By: #### L ITH #### [address] Automated neutrophil %Ordere d By: Nimesh Westfall on 08-15-2023 Neutrophils/100 WBC (Bld) 45.1 % Normal . [facility] Comment on above: Performed By: #### L ITH #### [address] Automated urine color determ inationOrdered By: Nimesh Westfall on 08-15-2023 Color (U) Yellow Normal Yellow [facility] Comment on above: Order Comment: Name Collection Type:: Clean-Voided Midstream Performed By: #### L IPID, T4F, [id number], TSH3 wRFLX #### [address] Barbiturates [Presence] in U rine by Screen methodOrdered By: Nimesh Westfall on 03-14-2024 Barbiturates Screen Ql (U) Negative Negative [facility] Benzodiazepines Screen Ql (U )Ordered By: Nimesh Westfall on 08-15-2023 Benzodiazepines Ql (U) Negative Negative [facility] Benzoylecgonine [Presence] i n Urine by Screen methodOrdered By: Nimesh Westfall on 08-15-2023 Benzoylecgonine Screen Ql (U) Negative Negative [facility] Bilirubin Test strip Ql (U)O rdered By: Nimesh Westfall on 08-15-2023 Bilirubin Ql (U) Negative Negative [facility] Bilirubin.total [Mass/volume ] in Serum or PlasmaOrdered By: Nimesh Westfall on 08-15-2023 Bilirubin [Mass/Vol] 0.3 mg/dL Normal 0.3-1.0 [facility] Comment on above: Performed By: #### L ITH #### [facility] [address] [place] [address] [place] Calcium [Mass/volume] in Ser um or PlasmaOrdered By: Nimesh Westfall on 08-15-2023 Calcium [Mass/Vol] 9.4 mg/dL Normal 8.6-10.3 [facility] Comment on above: Performed By: #### L ITH #### [facility] [address] [place] [address] [place] Cannabinoids [Presence] in U rine by Screen methodOrdered By: Nimesh Westfall on 08-15-2023 Cannabinoids Screen Ql (U) Negative Negative [facility] Comment on above: These are unconfirme d results and should not be used for legal purposes. Drug Cut-Off Concentration: AMPH 1000 ng/mL PJ 200 ng/mL BETSY 200 ng/mL COCM 300 ng/mL OP 300 ng/mL PCP 25 ng/mL THC 20 ng/mL Carbon dioxide, total [Moles /volume] in Serum or PlasmaOrdered By: Nimesh Westfall on 08-15-2023 CO2 [Moles/Vol] 25.3 mmol/L Normal 21.0-31.0 [facility] Comment on above: Performed By: #### L ITH #### [facility] [address] [place], [place] [id number] [place] Chloride [Moles/volume] in S kishan or PlasmaOrdered By: Nimesh Westfall on 08-15-2023 Chloride [Moles/Vol] 109 mmol/L High 98-107 [facility] Comment on above: Performed By: #### L ITH #### [address] Complete Blood Count Auto Di ffon 08-15-2023 Mean Corpuscular HGB Conc 33.0 g/dL Normal 32.0-35.0 [facility] Comment on above: Performed By: #### L ITH #### [address] Monocytes/100 WBC (Bld) 16.42 % Normal 0.00-20.00 [facility] Comment on above: Performed By: #### L ITH #### [address] NRBC% 0.1 /100{WBC} Normal 0-0.5 [facility] Comment on above: Performed By: #### L ITH #### [address] Comprehensive Metabolic Pane eusebia 08-15-2023 Albumin [Mass/Vol] 4.5 g/dL Normal 3.5-5.7 [facility] Comment on above: Performed By: #### L ITH #### [address] Creatinine Clr Calc Pharmacy 40.94 Normal [facility] Comment on above: Result Comment: PERF ORMED BY: [place] [address] PATHOLOGIST SALES PROGRAM COORDINATOR GATO PEÑA M.D. Performed By: #### L ITH #### [address] GFR/1.73 sq M.predicted MDRD (S/P/Bld) [Vol rate/Area] 47.997 mL/min/{1.73_m2} Normal [facility] Comment on above: Performed By: #### L ITH #### [address] Creatinine [Mass/volume] in Serum or PlasmaOrdered By: Nimesh Westfall on 08-15-2023 Creatinine [Mass/Vol] 1.24 mg/dL High 0.60-1.20 [facility] Comment on above: Performed By: #### L ITH #### [address] Dipstick and Microscopicon 0 08-15-2023 Appearance (U) Clear Normal Clear [facility] Comment on above: Order Comment: Name Collection Type:: Clean-Voided Midstream Performed By: #### L IPID, T4F, [id number], TSH3 wRFLX #### [address] Bacteria,Urine None Seen Normal None Seen [facility] Comment on above: Order Comment: Name Collection Type:: Clean-Voided Midstream Performed By: #### L IPID, T4F, [id number], TSH3 wRFLX #### [address] Bilirubin,Urine Negative Normal Negative [facility] Comment on above: Order Comment: Name Collection Type:: Clean-Voided Midstream Performed By: #### L IPID, T4F, [id number], TSH3 wRFLX #### [address] Glucose Ql (U) Normal Normal Normal [facility] Comment on above: Order Comment: Name Collection Type:: Clean-Voided Midstream Performed By: #### L IPID, T4F, [id number], TSH3 wRFLX #### [address] Hyaline Casts,Urine None Seen Normal 0-8 [facility] Comment on above: Order Comment: Name Collection Type:: Clean-Voided Midstream Result Comment: PERF ORMED BY: [place] [address] PATHOLOGIST SALES PROGRAM COORDINATOR GATO PEÑA M.D. Performed By: #### L IPID, T4F, [id number], TSH3 wRFLX #### [address] Ketones Ql (U) Negative Normal Negative [facility] Comment on above: Order Comment: Name Collection Type:: Clean-Voided Midstream Performed By: #### L IPID, T4F, [id number], TSH3 wRFLX #### [address] Leukocyte esterase Test strip Ql (U) 3+ High Negative [facility] Comment on above: Order Comment: Name Collection Type:: Clean-Voided Midstream Performed By: #### L IPID, T4F, [id number], TSH3 wRFLX #### [place] [address] [place] Nitrite,Urine Negative Normal Negative [facility] Comment on above: Order Comment: Name Collection Type:: Clean-Voided Midstream Performed By: #### L IPID, T4F, [id number], TSH3 wRFLX #### [place] [address] [place] Occult Blood,Urine Negative Normal Negative [facility] Comment on above: Order Comment: Name Collection Type:: Clean-Voided Midstream Result Comment: PERF ORMED BY: [place] [address] PATHOLOGIST SALES PROGRAM COORDINATOR GATO PEÑA M.D. Performed By: #### L IPID, T4F, [id number], TSH3 wRFLX #### [place] [address] [place] Protein,Urine Negative Normal Negative [facility] Comment on above: Order Comment: Name Collection Type:: Clean-Voided Midstream Performed By: #### L IPID, T4F, [id number], TSH3 wRFLX #### [place] [address] [place] RBC,Urine None Seen Normal 0-4 [facility] Comment on above: Order Comment: Name Collection Type:: Clean-Voided Midstream Performed By: #### L IPID, T4F, [id number], TSH3 wRFLX #### [address] Specificy [place],Urine 1.005 Normal 1.00 1-1.03 0 [facility] Comment on above: Order Comment: Name Collection Type:: Clean-Voided Midstream Performed By: #### L IPID, T4F, [id number], TSH3 wRFLX #### [address] Squamous Epithelial Cell,Urine None Seen Normal 0-2 [facility] Comment on above: Order Comment: Name Collection Type:: Clean-Voided Midstream Performed By: #### L IPID, T4F, [id number], TSH3 wRFLX #### [address] Urobilinogen,Urine Normal Normal Normal [facility] Comment on above: Order Comment: Name Collection Type:: Clean-Voided Midstream Performed By: #### L IPID, T4F, [id number], TSH3 wRFLX #### [address] WBC,Urine 3-4 Normal 0-4 [facility] Comment on above: Order Comment: Name Collection Type:: Clean-Voided Midstream Performed By: #### L IPID, T4F, [id number], TSH3 wRFLX #### [place] [address] [place] Drug Screen,Urineon 08-15-19 24 Amphetamine Screen,Urine Negative Normal Negative [facility] Comment on above: Performed By: #### L IPID, T4F, [id number], TSH3 wRFLX #### [address] Barbiturate Screen,Urine Negative Normal Negative [facility] Comment on above: Performed By: #### L IPID, T4F, [id number], TSH3 wRFLX #### [address] Benzodiazepines Screen,Urine Negative Normal Negative [facility] Comment on above: Performed By: #### L IPID, T4F, [id number], TSH3 wRFLX #### [address] Cannabinoid Screen,Urine Negative Normal Negative [facility] Comment on above: Result Comment: Thes e are unconfirmed results and should not be used for legal purposes. Drug Cut-Off Concentration: AMPH 1000 ng/mL PJ 200 ng/mL BETSY 200 ng/mL COCM 300 ng/mL OP 300 ng/mL PCP 25 ng/mL THC 20 ng/mL PERFORMED BY: [place] [address] PATHOLOGIST SALES PROGRAM COORDINATOR GATO PEÑA M.D. Performed By: #### L IPID, T4F, [id number], TSH3 wRFLX #### [address] Cocaine Screen,Urine Negative Normal Negative [facility] Comment on above: Performed By: #### L IPID, T4F, [id number], TSH3 wRFLX #### [address] Opiate Screen,Urine Negative Normal Negative [facility] Comment on above: Performed By: #### L IPID, T4F, [id number], TSH3 wRFLX #### [address] Phencyclidine Screen,Urine Negative Normal Negative [facility] Comment on above: Performed By: #### L IPID, T4F, [id number], TSH3 wRFLX #### [address] Erythrocyte distribution wid th [Ratio] by Automated countOrdered By: Nimesh Westfall on 08-15-2023 Erythrocyte distribution width (RBC) [Ratio] 14.2 % Normal 11.9-15.3 [facility] Comment on above: Performed By: #### L ITH #### [address] Erythrocytes [#/volume] in B lood by Automated countOrdered By: Nimesh Westfall on 08-15-2023 RBC (Bld) [#/Vol] 3.95 10*6/uL Normal 3.60-5.00 [facility] Comment on above: Performed By: #### L ITH #### [facility] [address] Ethanol [Mass/volume] in Ser um or PlasmaOrdered By: Nimesh Westfall on 08-15-2023 Ethanol [Mass/Vol] mg/dL Normal [facility] Comment on above: Performed By: #### L ITH #### [facility] [address] Ethanol [Mass/Vol] TNP [facility] Comment on above: Test not performed Ethyl Alcohol Profileon 08-01 Percent Ethanol Not performed Normal The [facility] Comment on above: Result Comment: PERF ORMED BY: [place] [address] PATHOLOGIST SALES PROGRAM COORDINATOR GATO PEÑA M.D. Performed By: #### L ITH #### [facility] [address] Glucose [Mass/volume] in Ser um or PlasmaOrdered By: Nimesh Westfall on 08-15-2023 Glucose [Mass/Vol] 113 mg/dL High 70-100 [facility] Comment on above: ADA recommended refe rence rangeRandom Glucose Reference Range is dependent on time and content of last meal. Glucose of more than 200 mg/dL in a nonstressed, ambulatory subject supports the diagnosis of Diabetes Mellitus. Result Comment: [place] om Glucose Reference Range is dependent on time and content of last meal. Glucose of more than 200 mg/dL in a nonstressed, ambulatory subject supports the diagnosis of Diabetes Mellitus. ADA recommended reference range Performed By: #### L ITH #### [facility] [address] [place] [address] [place] Hematocrit [Volume Fraction] of Blood by Automated countOrdered By: Nimesh Westfall on 08-15-2023 Hematocrit (Bld) [Volume fraction] 37.3 % Normal 34.0-46.4 [facility] Comment on above: Performed By: #### L ITH #### [address] Hemoglobin [Mass/volume] in BloodOrdered By: Nimesh Westfall on 08-15-2023 Hemoglobin (Bld) [Mass/Vol] 12.3 g/dL Normal 11.8-15.4 [facility] Comment on above: Performed By: #### L ITH #### [address] Ketones Auto test strip (U) [Mass/Vol]Ordered By: Nimesh Westfall on 08-15-2023 Ketones (U) [Mass/Vol] Negative Negative [facility] - UrinalysisOrder ed By: Nimesh Westfall on 08-15-2023 Hyaline casts LM Ql (Urine sed) None seen [LPF] 0-8 [facility] Leukocytes [#/volume] correc cornelia for nucleated erythrocytes in Blood by Automated counOrdered By: Nimesh Westfall on 08-15-2023 WBC corrected for nucl RBC Auto (Bld) [#/Vol] 4.7 10*3/uL 3.8-11.6 [facility] Leukocytes [#/volume] in Blo od by Automated countOrdered By: Nimesh Westfall on 08-15-2023 WBC (Bld) [#/Vol] 4.7 10*3/uL Normal 3.8-11.6 [facility] Comment on above: Performed By: #### L ITH #### [address] Lymphocytes [#/volume] in Bl ood by Automated countOrdered By: Nimesh Westfall on 08-15-2023 Lymphocytes (Bld) [#/Vol] 1.7 10*3/uL Normal 1.00-4.8 [facility] Comment on above: Performed By: #### L ITH #### [address] Lymphocytes/100 leukocytes i n Blood by Automated countOrdered By: Nimesh Westfall on 08-15-2023 Lymphocytes/100 WBC (Bld) 36.6 % Normal . [facility] Comment on above: Performed By: #### L ITH #### [address] MCH [Entitic mass] by Automa cornelia countOrdered By: Nimesh Westfall on 08-15-2023 MCH (RBC) [Entitic mass] 31.2 pg Normal 24.7-34.3 [facility] Comment on above: Performed By: #### L ITH #### [address] MCHC Auto (RBC) [Mass/Vol]Or dered By: Nimesh Westfall on 08-15-2023 MCHC (RBC) [Mass/Vol] 33.0 g/dL 32.0-35.0 [facility] MCV [Entitic volume] by Auto mated countOrdered By: Nimesh Westfall on 08-15-2023 MCV (RBC) [Entitic vol] 94.5 fL Normal 80-100 [facility] Comment on above: Performed By: #### L ITH #### [address] Monocyte distribution width [Entitic volume] in Blood by AutomatedOrdered By: Nimesh Westfall on 08-15-2023 Monocyte distribution width Auto (Bld) [Entitic vol] 16.42 % 0.00-20.00 [facility] Neutrophils [#/volume] in Bl ood by Automated countOrdered By: Nimesh Westfall on 08-15-2023 Neutrophils (Bld) [#/Vol] 2.1 10*3/uL Normal 1.8-7.7 [facility] Comment on above: Performed By: #### L ITH #### [address] Nitrite Test strip Ql (U)Ord ered By: Nimesh Westfall on 08-15-2023 Nitrite Ql (U) Negative Negative [facility] No Panel InformationOrdered By: Nimesh Westfall on 08-15-2023 Estimated GFR (CKD-EPI) 47.997 mL/Min [facility] Creatinine Clearance (Chem 40.94 [facility] Nucleated erythrocytes [Pres ence] in Blood by Automated countOrdered By: Nimesh Westfall on 08-15-2023 Nucleated RBC Auto Ql (Bld) 0.1 /100{WBC} 0-0.5 [facility] Opiates [Presence] in Urine by Screen methodOrdered By: Nimesh Westfall on 08-15-2023 Opiates Screen Ql (U) Negative Negative [facility] Phencyclidine Screen Ql (U)O rdered By: Nimesh Westfall on 08-15-2023 Phencyclidine Ql (U) Negative Negative [facility] Platelet mean volume [Entiti c volume] in Blood by Automated countOrdered By: Nimesh Westfall on 08-15-2023 Platelet mean volume (Bld) [Entitic vol] 8.4 fL Normal 6.3-10.7 [facility] Comment on above: Performed By: #### L ITH #### [facility] [address] [place] [address] Platelets [#/volume] in Bloo d by Automated countOrdered By: Nimesh Westfall on 08-15-2023 Platelets (Bld) [#/Vol] 221 10*3/uL Normal 150-450 [facility] Comment on above: Performed By: #### L ITH #### [facility] [address] [place] [address] Potassium [Moles/volume] in Serum or PlasmaOrdered By: Nimesh Westfall on 08-15-2023 Potassium [Moles/Vol] 4.1 mmol/L Normal 3.5-5.1 [facility] Comment on above: Performed By: #### L ITH #### [address] Protein Auto test strip (U) [Mass/Vol]Ordered By: Nimesh Westfall on 08-15-2023 Protein (U) [Mass/Vol] Negative Negative [facility] Protein [Mass/volume] in Ser um or PlasmaOrdered By: Nimesh Westfall on 08-15-2023 Protein [Mass/Vol] 7.0 g/dL Normal 6.4-8.9 [facility] Comment on above: Performed By: #### L ITH #### [address] [place] [address] [place] Serum globulin measurement b y calculation (mass/volume)Ordered By: Nimesh Westfall on 08-15-2023 Globulin (S) [Mass/Vol] 2.5 g/dL Normal F [facility] Comment on above: Performed By: #### L ITH #### [address] Serum or plasma albumin/glob ulin mass ratioOrdered By: Nimesh Westfall on 08-15-2023 Albumin/Globulin [Mass ratio] 1.8 {ratio} Normal [facility] Comment on above: Performed By: #### L ITH #### [address] Serum or plasma anion gap de terminationOrdered By: Nimesh Westfall on 08-15-2023 Anion gap [Moles/Vol] 11.8 mmol/L Normal 6.0-15.0 [facility] Comment on above: Performed By: #### L ITH #### [address] Sodium [Moles/volume] in Ser um or PlasmaOrdered By: Nimesh Westfall on 08-15-2023 Sodium [Moles/Vol] 142 mmol/L Normal 136-145 [facility] Comment on above: Performed By: #### L ITH #### [address] Specific gravity Auto test s trip (U) [Rel density]Ordered By: Nimesh Westfall on 08-15-2023 Specific gravity (U) [Rel density] 1.005 1.001-1.03 0 [facility] Squamous epithelial cells de tection in urine sediment by light microscopyOrdered By: Nimesh Westfall on 08-15-2023 Epithelial cells.squamous LM Ql (Urine sed) None seen [HPF] 0-2 [facility] Urea nitrogen [Mass/volume] in Serum or PlasmaOrdered By: Nimesh Westfall on 08-15-2023 Urea nitrogen [Mass/Vol] 27 mg/dL High 7-25 [facility] Comment on above: Performed By: #### L ITH #### [address] [place] [address] [facility] Urine bacteria detection by automated methodOrdered By: Nimesh Westfall on 08-15-2023 Bacteria Auto Ql (U) None seen None Seen [facility] Urine clarity by refractomet ry automatedOrdered By: Nimesh Westfall on 08-15-2023 Clarity Refractometry automated (U) Clear Clear [facility] Urine glucose measurement by automated test strip (mass/volume)Ordered By: Nimesh Westfall on 08-15-2023 Glucose Auto test strip (U) [Mass/Vol] Normal mg/dL Normal [facility] Urine hemoglobin detection b y automated test stripOrdered By: Nimesh Westfall on 08-15-2023 Hemoglobin Auto test strip Ql (U) Negative Negative [facility] Urine leukocyte esterase det ection by automated test stripOrdered By: Nimesh Westfall on 08-15-2023 Leukocyte esterase Auto test strip Ql (U) 3+ Negative [facility] Urine pH measurement by auto mated test stripOrdered By: Nimesh Westfall on 08-15-2023 pH (U) 7.0 [pH] Normal 5.0-9.0 [facility] Comment on above: Order Comment: Name Collection Type:: Clean-Voided Midstream Performed By: #### L IPID, T4F, [id number], TSH3 wRFLX #### [facility] [address] [place], [place] [id number] [facility] Urobilinogen Auto test strip (U) [Mass/Vol]Ordered By: Nimesh Westfall on 08-15-2023 Urobilinogen (U) [Mass/Vol] Normal mg/dL Normal [facility] CNPDayanara 08-09-2023 DAKSHAN Telephone (KAYLI) -------- GAIL ALMEIDA ([id number]) 1955 F Date Time Provider Department 08/09/23 YANDEL DANIEL During your visit today, we recorded the following information about you: Michael Nena 08/09/2023 9:45 AM Signed Person Calling: Margaux - RN at assisted living facility Reason for Call: patient is going to need refills on levothyroxine and calcium carbonate. She was unsure if we would fill that request or her pcp Margaux: [phone] Pharmacy Name and # : [place] [address] - [address] [facility] - [phone] [address] [facility] [address] [facility] [facility] [address] Pt last seen: 06/28/2023 Radha Sewell, RN 08/09/2023 4:29 PM Signed Called [facility] Transferred to [facility]. No answer phone continued ringing no voicemail available. Radha Brice RN 09/03/2023 8:00 AM Signed No return call for [employer]. Closing encounter. Allergies As of Date: 08/09/2023 [...] Fully Assessed Reason for Visit: Patient Question [1497] Prescriptions as of 09/03/2023 - calcium carbonate [...] mouth every 12 hours as needed. - qzwntg-voklmtzn-mujeabn (ENZADYNE) 9,000-112,500- 112,500 unit capsule Take 1 [...] Encounter Status:Closed by RADHA BRICE on 09/03/23 [facility] No Panel Informationon 07-16 Type of biopsy: [...] taken Amount of lidocaine used: 0.3 cc [facility] CNOVon 06-28-2023 CNOV Office Visit (OTOLMN ) -------- GAIL ALMEIDA ([id number]) 1955 F Date Time Provider Department 06/28/23 3:45 PM YANDEL DANIEL OTOLTN During your visit today, we recorded the [...] by mouth every 12 hours as needed. bqlibj-duwtmoek-mxbavdx (ENZADYNE) 9,000-112,500- 112,500 unit capsule Take 1 [...] will continu (more content not included)... Normal [facility] CNPDayanara 06-24-2023 CNPN Telephone (HNQ) -------- GAIL ALMEIDA ([id number]) 1955 F Date Time Provider Department 06/24/23 YANDEL DANIEL During your visit today, we recorded the following information about you: Nena Rodriguez 06/24/2023 11:32 AM Signed Person Calling: Susannah - Pharmacist at [facility] Reason for Call: Susannah called in to see if there is alternative product/brand for qzuskc-eqfhvtfc-bsqdayq 9,000-112,500- 112,500 unit cap 1 capsule (ENZADYNE) that Dr. Daniel would be comfortable prescribing. The current one sent to the pharmacy, they do not have Pt Phone #: [phone] Pharmacy Name and # : [address] [place] [address] - [address] [facility] [phone] Pt last seen: 06/18/2023 Amy Diaz, RN [...] mouth every 12 hours as needed. - fjvwys-lnppvutl-fnxnwck (ENZADYNE) 9,000-112,500- 112,500 unit capsule Take 1 [...] Encounter Status:Closed by AMY NG on 06/24/23 Normal [facility] CNDSon 06-22-2023 DS HNO ID: [id number] Author: YANDEL DANIEL MD Service: Otolaryngology Author [...] (surgical) FOLLOW-UP APPOINTMENTS ALREADY SCHEDULED WITH A [facility] PROVIDER: Future Appointments Date Time Provider [...] nasal spray folic acid 800 mcg tablet bdlfsr-iqwtkpuz-udjamgo 9,000-112,500- 112,500 unit capsule Commonly known as: [...] mcg (200 unit) per tablet Generic drug: gareoet-hoplityka-hbbhfk n D3 * QUEtiapine XR 400 mg [...] ROXICODONE Ta (more content not included)... Normal [facility] CONSULTon 06-21-2023 CONSULT HNO ID: [id number] Author: MARIAH FOWLER MD Service: Hospital Medicine [...] disorder On Topiramate 25mg daily Quetiapine 12.5/12.5/400 [place] 150mg BID Clonidine 0.1mg po daily Amantadine [...] as needed., Disp: , Rfl: , 06/17/2023 hwbtao-hbgytgdr-dtheqas (ENZADYNE) 9,000-112,500- 112,500 unit capsule, Take 1 capsule by mouth daily with food., Disp: , Rfl: (more content not included)... Normal [facility] CYSTATIN Con 06-21-2023 Cystatin C [Mass/Vol] 1.84 mg/L High 0.61-0.95 [facility] Comment on above: Order Comment: Speci srinivas Type: BLOOD SPECIMENOrdering Facility: [facility] Address: [address] [place] [address] Performed By: #### 2 4362-6, CYSTC ####[facility] [id number] [place] [address] [place] CYSTATIN C EGFR 31 mL/min/1.73m??? Low >=60 [facility] Comment on above: Order Comment: Specruy espino Type: BLOOD SPECIMENOrdering Facility: [facility] Address: [address] [place] [address] Result Comment: Leanna mated Glomerular Filtration Rate (eGFR) is calculated using the 2012 CKD-EPI cystatin C equation. This equation utilizes serum cystatin C, sex, and age as parameters. The cystatin C assay has traceable calibration to the ERM-DA471/IFCC reference material. Refer to KDIGO guidelines for clinical interpretation. In patients with unstable renal function, e.g. those with acute kidney injury, the eGFR may not accurately reflect actual GFR. Performed By: #### 2 4362-6, CYSTC ####[facility] [id number] [place] [address] [place] Calcium.ionized [Moles/Vol]o n 06-21-2023 Calcium.ionized (Bld) [Mass/Vol] 1.27 mmol/L Normal 1.08-1.30 [facility] Comment on above: Order Comment: Speci men Type: BLOOD SPECIMENOrdering Facility: [facility] Address: [address] [place] [address] Performed By: #### 1 995-0 ####[facility] [id number] [place] [address] [place] Calcium.ionized adjusted to pH 7.4 (Bld) [Moles/Vol] 1.29 mmol/L Normal 1.08-1.30 [facility] Comment on above: Order Comment: Speci men Type: BLOOD SPECIMENOrdering Facility: [facility] Address: [address] [place] [address] Performed By: #### 1 995-0 ####[facility] LABIA [id number] [place] [address] [place] NURSING PROGon 06-21-2023 NURSING PROG HNO ID: [id number] Author: AKIKO LONG RN Service: ? Author Type: Registered Nurse Type: Nursing Progress Note Filed: 06/21/2023 12:54 Note Text: Other: [address] Daniel, pt concerned about getting a ride set up to go home today, nursing concerned that ENDO is consulted now, Mc says pt can go home and follow up as outpatient with Endocrinology, will page Dr Kody Terrell [facility] Renal function 2000 panelon 06-21-2023 Albumin [Mass/Vol] 4.1 g/dL Normal 3.9-4.9 [facility] Comment on above: Order Comment: Speci men Type: BLOOD SPECIMENOrdering Facility: [facility] Address: [address] [place] [address] Performed By: #### 2 4362-6, CYSTC ####[facility] LABIA [id number] [place] [address] [place] Anion gap [Moles/Vol] 13 mmol/L Normal 9-18 [facility] Comment on above: Order Comment: Speci men Type: BLOOD SPECIMENOrdering Facility: [facility] Address: [address] [place] [address] Performed By: #### 2 4362-6, CYSTC ####[facility] [id number] [place] [address] [place] Calcium [Mass/Vol] 9.6 mg/dL Normal 8.5-10.2 [facility] Comment on above: Order Comment: Speci men Type: BLOOD SPECIMENOrdering Facility: [facility] Address: [address] [place] [address] Performed By: #### 2 4362-6, CYSTC ####[facility] [id number] [place] [address] [place] Chloride [Moles/Vol] 104 mmol/L Normal 97-105 [facility] Comment on above: Order Comment: Speci men Type: BLOOD SPECIMENOrdering Facility: [facility] Address: [address] [place] [address] Performed By: #### 2 4362-6, CYSTC ####[facility]CL[facility] [id number] [place] [address] [place] CO2 [Moles/Vol] 25 mmol/L Normal 22-30 [facility] Comment on above: Order Comment: Speci men Type: BLOOD SPECIMENOrdering Facility: [facility] Address: [address] [place] [address] Performed By: #### 2 4362-6, CYSTC ####[facility]CLIA [id number] [place] [address] [place] Creatinine [Mass/Vol] 1.20 mg/dL High 0.58-0.96 [facility] Comment on above: Order Comment: Speci men Type: BLOOD SPECIMENOrdering Facility: [facility] Address: [address] [place] [address] Performed By: #### 2 4362-6, CYST ####[facility] LABIA [id number] [place] [address] [place] Creatinine and Glomerular filtration rate.predicted panel (S/P/Bld) 50 mL/min/1.73m??? Low >=60 [facility] Comment on above: Order Comment: Pio espino Type: BLOOD SPECIMENOrdering Facility: [facility] Address: [address] [place] [address] Result Comment: Leanna mated Glomerular Filtration Rate [...] actual GFR. Performed By: #### 2 4362-6, CYST ####[facility]CLIA [id number] [place] [address] [place] Glucose [Mass/Vol] 161 mg/dL High 74-99 [facility] Comment on above: Order Comment: Pio srinivas Type: BLOOD SPECIMENOrdering Facility: [facility] Address: [address] [place] [address] Result Comment: The [place] Diabetes Association (ADA) provides guidance for cutoff [...] Standards of Medical Care in Diabetes 2016, [place] [employer] Association. Diabetes Care. 2016.39(Suppl 1). Performed By: #### 2 4362-6, CYSTC ####[facility]CLIA [id number] [place] [address] [place] Phosphate [Mass/Vol] 4.2 mg/dL Normal 2.7-4.8 [facility] Comment on above: Order Comment: Speci men Type: BLOOD SPECIMENOrdering Facility: [facility] Address: [address] [place] [address] Performed By: #### 2 4362-6, CYSTC ####[facility]CLIA [id number] [place] [address] [place] Potassium [Moles/Vol] 4.0 mmol/L Normal 3.7-5.1 [facility] Comment on above: Order Comment: Speci men Type: BLOOD SPECIMENOrdering Facility: [facility] Address: [address] [place] [address] Performed By: #### 2 4362-6, CYSTC ####[facility]CLIA [id number] [place] [address] [place] Sodium [Moles/Vol] 142 mmol/L Normal 136-144 [facility] Comment on above: Order Comment: Speci men Type: BLOOD SPECIMENOrdering Facility: [facility] Address: [address] [place] [address] Performed By: #### 2 4362-6, CYSTC ####[facility] LABCLIA [id number] [place] [id number] [place] Urea nitrogen [Mass/Vol] 26 mg/dL High 7-21 [facility] Comment on above: Order Comment: Speci men Type: BLOOD SPECIMENOrdering Facility: [facility] Address: [address] [place] [address] Performed By: #### 2 4362-6, CYSTC ####[facility]CLIA [id number] [place] [id number] [place] Urinalysis complete panel (U )on 06-21-2023 Bacteria LM.HPF (Urine sed) [#/Area] Negative Normal Negative [facility] Comment on above: Order Comment: Speci men Type: URINE SPECIMENOrdering Facility: [facility] Address: [address] [place] [address] Performed By: #### 2 4356-8 ####[facility]CLIA [id number] [place] [address] [place] Bilirubin Ql (U) Negative Normal Negative [facility] Comment on above: Order Comment: Speci men Type: URINE SPECIMENOrdering Facility: [facility] Address: [address] [place] [address] Performed By: #### 2 4356-8 ####[facility] LABCLIA [id number] [place] [address] [place] Clarity (Unsp spec) Clear Normal Clear [facility] Comment on above: Order Comment: Speci men Type: URINE SPECIMENOrdering Facility: [facility] Address: [address] [place] [address] Performed By: #### 2 4356-8 ####[facility]CLIA [id number] [address] [place] [facility] Color (U) Yellow Normal Yellow [facility] Comment on above: Order Comment: Speci men Type: URINE SPECIMENOrdering Facility: [facility] Address: [address] [place] [address] Performed By: #### 2 4356-8 ####[facility] LABCLIA [id number] [place] [address] [place] Epithelial cells LM.HPF (Urine sed) [#/Area] Few Normal [facility] Comment on above: Order Comment: Speci men Type: URINE SPECIMENOrdering Facility: [facility] Address: [address] [place] [address] Performed By: #### 2 4356-8 ####[facility] LABCLIA [id number] [place] [address] [place] Glucose Test strip (U) [Mass/Vol] Negative Normal Negative [facility] Comment on above: Order Comment: Speci men Type: URINE SPECIMENOrdering Facility: [facility] Address: [address] [place] [address] Performed By: #### 2 4356-8 ####[facility] LABCLIA [id number] [place] [address] [place] Hemoglobin Ql (U) Negative Normal Negative [facility] Comment on above: Order Comment: Speci men Type: URINE SPECIMENOrdering Facility: [facility] Address: [address] [place] [address] Performed By: #### 2 4356-8 ####[facility] LABCLIA [id number] [place] [address] [place] Hyaline casts (Urine sed) [#/Area] 0 /[LPF] Normal 0 /LPF [facility] Comment on above: Order Comment: Speci men Type: URINE SPECIMENOrdering Facility: [facility] Address: [address] [place] [address] Performed By: #### 2 4356-8 ####[facility] LABCLIA [id number] [place] [address] [place] Ketones Ql (U) Negative Normal Negative [facility] Comment on above: Order Comment: Speci men Type: URINE SPECIMENOrdering Facility: [facility] Address: [address] [place] [address] Performed By: #### 2 4356-8 ####[facility] LABCLIA [id number] [place] [address] [place] Leukocyte esterase Test strip Ql (U) 1+ Abnormal Negative [facility] Comment on above: Order Comment: Speci men Type: URINE SPECIMENOrdering Facility: [facility] Address: [address] [place] [address] Performed By: #### 2 4356-8 ####[facility] LABCLIA [id number] [place] [address] [place] Nitrite Ql (U) Negative Normal Negative [facility] Comment on above: Order Comment: Speci men Type: URINE SPECIMENOrdering Facility: [facility] Address: [address] [place] [address] Performed By: #### 2 4356-8 ####[facility] LABCLIA [id number] [place] [address] [place] pH (U) 7.0 [pH] Normal <8.5 [facility] Comment on above: Order Comment: Speci men Type: URINE SPECIMENOrdering Facility: [facility] Address: [address] [place] [address] Performed By: #### 2 4356-8 ####[facility] LABCLIA [id number] [place] [address] [place] Protein (U) [Mass/Vol] Negative Normal Negative [facility] Comment on above: Order Comment: Speci men Type: URINE SPECIMENOrdering Facility: [facility] Address: [address] [place] [address] Performed By: #### 2 4356-8 ####[facility] LABIA [id number] [place] [address] [place] RBC LM.HPF (Urine sed) [#/Area] 0-2 /HPF Normal 0-2 /HPF [facility] Comment on above: Order Comment: Speci men Type: URINE SPECIMENOrdering Facility: [facility] Address: [address] [place] [address] Performed By: #### 2 4356-8 ####[facility] LABCLIA [id number] [place] [address] [place] Specific gravity (U) [Rel density] 1.009 Normal 1.005-1.03 0 [facility] Comment on above: Order Comment: Speci men Type: URINE SPECIMENOrdering Facility: [facility] Address: [address] [place] [address] Performed By: #### 2 4356-8 ####[facility] LABIA [id number] [place] [address] [place] Urobilinogen Ql (U) 0.2 EU/dL Normal 0.2-1.0 EU/dL [facility] Comment on above: Order Comment: Speci men Type: URINE SPECIMENOrdering Facility: [facility] Address: [address] [place] [address] Performed By: #### 2 4356-8 ####[facility] LABIA [id number] [place] [address] [place] WBC LM.HPF (Urine sed) [#/Area] 0-5 /HPF Normal 0-5 /HPF [facility] Comment on above: Order Comment: Speci men Type: URINE SPECIMENOrdering Facility: [facility] Address: [address] [place] [address] Performed By: #### 2 4356-8 ####[facility] [id number] [place] [address] [place] Basic metabolic 2000 panelon 06-20-2023 Anion gap [Moles/Vol] 10 mmol/L Normal 9-18 [facility] Comment on above: Order Comment: Speci men Type: BLOOD SPECIMENOrdering Facility: [facility] Address: [address] [place] [address] Performed By: #### 2 777-1, 2731-8, 60526-5, 27303-8 ####[facility] LABIA [id number] [place] [address] [place] Calcium [Mass/Vol] 10.8 mg/dL High 8.5-10.2 [facility] Comment on above: Order Comment: Speci men Type: BLOOD SPECIMENOrdering Facility: [facility] Address: [address] [place] [address] Performed By: #### 2 777-1, 8, , ####[facility] LABCLIA [id number] [place] [address] [place] Chloride [Moles/Vol] 104 mmol/L Normal 97-105 [facility] Comment on above: Order Comment: Speci men Type: BLOOD SPECIMENOrdering Facility: [facility] Address: [address] [place] [address] Performed By: #### 2 777-1, 2731-01, , ####[facility] LABCLIA [id number] [place] [address] [place] CO2 [Moles/Vol] 26 mmol/L Normal 22-30 [facility] Comment on above: Order Comment: Speci men Type: BLOOD SPECIMENOrdering Facility: [facility] Address: [address] [place] [address] Performed By: #### 2 777-1, 8, , ####[facility] LABCLIA [id number] [place] [address] [place] Creatinine [Mass/Vol] 1.27 mg/dL High 0.58-0.96 [facility] Comment on above: Order Comment: Speci men Type: BLOOD SPECIMENOrdering Facility: [facility] Address: [address] [place] [address] Performed By: #### 2 777-1, 8, , 03781-1 ####[facility] LABCLIA [id number] [place] [address] [place] Creatinine and Glomerular filtration rate.predicted panel (S/P/Bld) 47 mL/min/1.73m??? Low >=60 [facility] Comment on above: Order Comment: Speci men Type: BLOOD SPECIMENOrdering Facility: [facility] Address: [address] [place] [address] Result Comment: Leanna mated Glomerular Filtration Rate [...] actual GFR. Performed By: #### 2 777-1, 2730-8, , 96198-2 ####[facility] LABIA [id number] [place] [address] [place] Glucose [Mass/Vol] 113 mg/dL High 74-99 [facility] Comment on above: Order Comment: Pio espino Type: BLOOD SPECIMENOrdering Facility: [facility] Address: [address] [place] [address] Result Comment: The [place] [employer] (ADA) provides guidance for cutoff [...] Standards of Medical Care in Diabetes 2016, [place] [employer]. Diabetes Care. 2016.39(Suppl 1). Performed By: #### 2 777-1, 273-8, , 24322-4 ####[facility] LABIA [id number] [place] [address] [place] Potassium [Moles/Vol] 4.0 mmol/L Normal 3.7-5.1 [facility] Comment on above: Order Comment: Pio espino Type: BLOOD SPECIMENOrdering Facility: [facility] Address: [address] [place] [id number] Performed By: #### 2 777-1, 273-8, , 48922-8 ####[facility] LABCLIA [id number] [address] [address] [place] Sodium [Moles/Vol] 140 mmol/L Normal 136-144 [facility] Comment on above: Order Comment: Speci men Type: BLOOD SPECIMENOrdering Facility: [facility] Address: [address] [place] [id number] Performed By: #### 2 777-1, 273-8, , 16150-1 ####[facility] LABCLIA [id number] [place] [address] [place] Urea nitrogen [Mass/Vol] 26 mg/dL High 7-21 [facility] Comment on above: Order Comment: Speci men Type: BLOOD SPECIMENOrdering Facility: [facility] Address: [address] [place], [place] [address] Performed By: #### 2 777-1, 273-8, , 93696-3 ####[facility] LABCLIA [id number] [place] [address] [place] CBC panel Auto (Bld)on 06-20 Erythrocyte distribution width (RBC) [Ratio] 13.3 % Normal 11.5-15.0 [facility] Comment on above: Order Comment: Speci men Type: BLOOD SPECIMENOrdering Facility: [facility] Address: [address] [place] [id number] Performed By: #### 2 731-8, 17518-2 ####[facility] LABCLIA [id number] [place] [address] [place] Hematocrit (Bld) [Volume fraction] 42.6 % Normal 36.0-46.0 [facility] Comment on above: Order Comment: Speci men Type: BLOOD SPECIMENOrdering Facility: [facility] Address: [address] [place] [address] Performed By: #### 2 731-8, 98184-0 ####[facility] LABIA [id number] [place] [address] [place] Hemoglobin (Bld) [Mass/Vol] 14.0 g/dL Normal 11.5-15.5 [facility] Comment on above: Order Comment: Speci men Type: BLOOD SPECIMENOrdering Facility: [facility] Address: [address] [place] [address] Performed By: #### 2 731-8, 95930-2 ####[facility] LABIA [id number] [place] [address] [place] MCH (RBC) [Entitic mass] 31.7 pg Normal 26.0-34.0 [facility] Comment on above: Order Comment: Speci men Type: BLOOD SPECIMENOrdering Facility: [facility] Address: [address] [place] [address] Performed By: #### 2 731-8, 42921-7 ####[facility] [id number] [place] [address] [place] MCHC (RBC) [Mass/Vol] 32.9 g/dL Normal 30.5-36.0 [facility] Comment on above: Order Comment: Speci men Type: BLOOD SPECIMENOrdering Facility: [facility] Address: [address] [place] [address] Performed By: #### 2 731-8, 72880-3 ####[facility] LABIA [id number] [place] [address] [place] MCV (RBC) [Entitic vol] 96.4 fL Normal 80.0-100.0 [facility] Comment on above: Order Comment: Speci men Type: BLOOD SPECIMENOrdering Facility: [facility] Address: [address] [place] [address] Performed By: #### 2 731-8, 73524-5 ####[facility] LABCLIA [id number] [place] [address] [place] Nucleated RBC (Bld) [#/Vol] 10*3/uL Normal <0.01 [facility] Comment on above: Order Comment: Speci men Type: BLOOD SPECIMENOrdering Facility: [facility] Address: [address] [place] [address] Performed By: #### 2 731-8, 94419-8 ####[facility] LABCLIA [id number] [place] [address] [place] Platelet mean volume (Bld) [Entitic vol] 10.1 fL Normal 9.0-12.7 [facility] Comment on above: Order Comment: Speci men Type: BLOOD SPECIMENOrdering Facility: [facility] Address: [address] [place] [address] Performed By: #### 2 731-8, 92706-1 ####[facility] LABCLIA [id number] [place] [address] [place] Platelets (Bld) [#/Vol] 201 10*3/uL Normal 150-400 [facility] Comment on above: Order Comment: Speci men Type: BLOOD SPECIMENOrdering Facility: [facility] Address: [address] [place] [address] Performed By: #### 2 731-8, 35429-6 ####[facility] LABCLIA [id number] [place] [address] [place] RBC (Bld) [#/Vol] 4.42 10*6/uL Normal 3.90-5.20 [facility] Comment on above: Order Comment: Speci men Type: BLOOD SPECIMENOrdering Facility: [facility] Address: [address] [place] [address] Performed By: #### 2 731-8, 28592-9 ####[facility] LABCLIA [id number] [place] [address] [place] WBC (Bld) [#/Vol] 7.26 10*3/uL Normal 3.70-11.00 [facility] Comment on above: Order Comment: Speci men Type: BLOOD SPECIMENOrdering Facility: [facility] Address: [address] [place] [address] Performed By: #### 2 731-8, 06071-3 ####[facility] LABIA [id number] [place] [address] [place] Calcium.ionized [Moles/Vol]o n 06-20-2023 Calcium.ionized (Bld) [Mass/Vol] 1.37 mmol/L High 1.08-1.30 [facility] Comment on above: Order Comment: Speci men Type: BLOOD SPECIMENOrdering Facility: [facility] Address: [address] [place] [address] Performed By: #### 1 995-0 ####[facility] LABIA [id number] [place] [address] [place] Calcium.ionized adjusted to pH 7.4 (Bld) [Moles/Vol] 1.38 mmol/L High 1.08-1.30 [facility] Comment on above: Order Comment: Speci men Type: BLOOD SPECIMENOrdering Facility: [facility] Address: [address] [place] [address] Performed By: #### 1 995-0 ####[facility] LABIA [id number] [place] [address] [place] Calcium.ionized (Bld) [Mass/Vol] 1.38 mmol/L High 1.08-1.30 [facility] Comment on above: Order Comment: Speci men Type: BLOOD SPECIMENOrdering Facility: [facility] Address: [address] [place] [address] Performed By: #### 1 995-0 ####[facility] LABCLIA [id number] [place] [address] [place] Calcium.ionized adjusted to pH 7.4 (Bld) [Moles/Vol] 1.40 mmol/L High 1.08-1.30 [facility] Comment on above: Order Comment: Speci men Type: BLOOD SPECIMENOrdering Facility: [facility] Address: [address] [place] [address] Performed By: #### 1 995-0 ####[facility] LABIA [id number] [place] [address] [place] Magnesium SerPl-mCncon 06-20 Magnesium [Mass/Vol] 1.8 mg/dL Normal 1.7-2.3 [facility] Comment on above: Order Comment: Speci men Type: BLOOD SPECIMENOrdering Facility: [facility] Address: [address] [place] [address] Performed By: #### 2 777-1, 2738, , 70550-9 ####[facility] LABIA [id number] [place] [address] [place] PTH-Intact SerPl-mCncon 06-03 Parathyrin.intact [Mass/Vol] pg/mL Low 15-65 [facility] Comment on above: Order Comment: Speci men Type: BLOOD SPECIMENOrdering Facility: [facility] Address: [address] [place] [address] Performed By: #### 2 731-8, 16855-6 ####[facility] LABIA [id number] [place] [address] [place] Result Comment: Resu lt rechecked. Performed By: #### 2 777-1, 273-8, , 87820-1 ####[facility] LABIA [id number] [place] [address] [place] Phosphate SerPl-mCncon 06-20 Phosphate [Mass/Vol] 4.9 mg/dL High 2.7-4.8 [facility] Comment on above: Order Comment: Speci men Type: BLOOD SPECIMENOrdering Facility: [facility] Address: [address] [place] [address] Performed By: #### 2 777-1, 2731-8, 32926-7, 99712-1 ####[facility] LABCLIA [id number] [facility] [id number] [place] CNPNon 06-19-2023 CNPN Telephone (HNQ) -------- GAIL ALMEIDA ([id number]) 1955 F Date Time Provider Department 06/19/23 YANDEL DANIEL Tito During your visit today, we recorded the following information about you: Nena Rodriguez 06/19/2023 9:56 AM Signed Person Calling: Margaux - RN at [facility] Reason for Call: Margaux called wanting to check in on how the patient is doing after surgery. She also wanted to know if the patient was still planning on being discharged today Margaux: [phone] Pt last seen: 06/18/23 Nena Rodriguez Allergies [...] mouth every 12 hours as needed. - uakoma-rvcaukle-mlagorg (ENZADYNE) 9,000-112,500- 112,500 unit capsule Take 1 [...] (hypertension) [I10] (more content not included)... Normal [facility] Calcium.ionized [Moles/Vol]o n 06-19-2023 Calcium.ionized (Bld) [Mass/Vol] 1.43 mmol/L High 1.08-1.30 [facility] Comment on above: Order Comment: Speci men Type: BLOOD SPECIMENOrdering Facility: [facility] Address: [address] [place] [address] Performed By: #### 1 995-0 ####[facility] [id number] [place] [address] [place] Calcium.ionized adjusted to pH 7.4 (Bld) [Moles/Vol] 1.43 mmol/L High 1.08-1.30 [facility] Comment on above: Order Comment: Speci men Type: BLOOD SPECIMENOrdering Facility: [facility] Address: [address] [place] [address] Performed By: #### 1 995-0 ####[facility] [id number] [place] [address] [place] Calcium.ionized (Bld) [Mass/Vol] 1.37 mmol/L High 1.08-1.30 [facility] Comment on above: Order Comment: Speci men Type: BLOOD SPECIMENOrdering Facility: [facility] Address: [address] [place] [address] Performed By: #### 1 995-0 ####[facility] [id number] [place] [address] [place] Calcium.ionized adjusted to pH 7.4 (Bld) [Moles/Vol] 1.35 mmol/L High 1.08-1.30 [facility] Comment on above: Order Comment: Speci men Type: BLOOD SPECIMENOrdering Facility: [facility] Address: [address] [place] [address] Performed By: #### 1 995-0 ####[facility] [id number] [place] [address] [place] Calcium.ionized (Bld) [Mass/Vol] 1.28 mmol/L Normal 1.08-1.30 [facility] Comment on above: Order Comment: Speci men Type: BLOOD SPECIMENOrdering Facility: [facility] Address: [address] [place] [address] Performed By: #### 1 995-0 ####[facility] [id number] [place] [address] [place] Calcium.ionized adjusted to pH 7.4 (Bld) [Moles/Vol] 1.27 mmol/L Normal 1.08-1.30 [facility] Comment on above: Order Comment: Speci men Type: BLOOD SPECIMENOrdering Facility: [facility] Address: [address] [place] [address] Performed By: #### 1 995-0 ####[facility] [id number] [place] [address] [place] Calcium.ionized (Bld) [Mass/Vol] 1.27 mmol/L Normal 1.08-1.30 [facility] Comment on above: Order Comment: Speci men Type: BLOOD SPECIMENOrdering Facility: [facility] Address: [address] [place] [address] Performed By: #### 1 995-0 ####[facility] [id number] [place] [id number] [place] Calcium.ionized adjusted to pH 7.4 (Bld) [Moles/Vol] 1.24 mmol/L Normal 1.08-1.30 [facility] Comment on above: Order Comment: Speci men Type: BLOOD SPECIMENOrdering Facility: [facility] Address: [address] [place] [address] Performed By: #### 1 995-0 ####[facility] LABCLIA [id number] [place] [id number] [place] PTH-Intact SerPl-mCncon 06-03 Parathyrin.intact [Mass/Vol] 6 pg/mL Low 15-65 [facility] Comment on above: Order Comment: Speci men Type: BLOOD SPECIMEN [facility] Address: [address] [place] [address] Performed By: #### 2 731-8 #### [facility] CLIA [id number] [address] [place] [id number] [place] ANES POSTPROC EVALon 024 ANES POSTPROC EVAL HNO ID: [id number] Author: LU CAREY MD Service: ? Author Type: Anesthesiologist Type: Anesthesia Postprocedure Evaluation Filed: 06/18/2023 18:05 Note Text: POST ANESTHESIA EVALUATION NOTE : 1955 Procedure Summary Date: 06/18/23 Room / Location: [address] Anesthesia Start: 1159 Anesthesia Stop: 1555 Procedure: [...] June 18, 2023 TIME: 6:05 PM CSN: [id number] Normal [facility] ANES PRE-OPon 06-18-2023 ANES PRE-OP HNO ID: [id number] Author: JANETH VARGAS DO Service: ? Author Type: Physician Type: Anesthesia Preprocedure Evaluation Filed: 06/18/2023 12:51 Note Text: ANESTHESIOLOGY DAY OF SURGERY NOTE : 1955 Procedure Information Date/Time: 06/18/23 1045 Procedure: THYROIDECTOMY TOTAL (Thyroid) Location: MAIN [address] [facility] Surgeons: Yandel Daniel MD Estimated body mass [...] and consent discussed: yes. Patient / Responsible [employer] agrees to proceed: yes Patient / [...] June 18, 2023 TIME: 9:48 AM CSN: [id number] Normal [facility] BRIEF OP NOTon 06-18-2023 BRIEF OP NOT HNO ID: [id number] Author: DAKOTA SMITH MD Service: Otolaryngology Author Type: Resident Type: Brief Op Note Filed: 06/18/2023 15:30 Note Text: BRIEF OPERATIVE NOTE Otorhinolaryngology LOG ID: [id number] Surgery / Procedure Date: 06/18/2023 Incision / Procedure Start Time: 12:35 PM Incision Close / Procedure End Time: 3:17 PM Procedure(s): Procedure(s) and Anesthesia Type: * THYROIDECTOMY TOTAL - General Total thyroidectomy with removal of substernal goiter Parathyroid autoimplantation into SCM x2 CROW-AF parathyroid detection Surgeon(s) / Proceduralist(s) and Shore Man(s): Surgeon(s) and Role: * Yandel Daniel MD [...] 3:29 PM Click to page Please page [phone] after 5pm and on weekends Normal [facility] CONSULT PROGon 06-18-2023 CONSULT PROG HNO ID: [id number] Author: LYDIA MACK Formerly [facility] Service: Pharmacy Author Type: Pharmacist Type: Consult [...] DAILY Question: Pharmacist may modify dose per [facility] dose optimization consult agreement Answer: Yes 06/18/23 1911 06/18/23 1600 ceFAZolin iv piggyback 2 g in D5W (iso-osmotic) 100 mL (ANCEF) EVERY 8 HOURS Question Answer Comment Antimicrobial indication Prophylaxis Pharmacist may modify dose per [facility] dose optimization consult agreement Yes 06/18/23 1555 For medications which dose is dependent on renal function, a pharmacist will monitor renal function daily and adjust doses accordingly. Any dose adjustments needed based on changes in indication will require an LIP to enter a new order. Managing Pharmacist: Lydia Mack RPh, available at: Ext [phone] If you have any questions, please contact Pharmacy at Ext [phone]. CrCl cannot be calculated (Patient's most recent [...] Temp: 36.5 ?C (97.7 ?F) Lydia Mack [facility] June 18, 2023 7:31 PM Normal [facility] Calcium.ionized [Moles/Vol]o n 06-18-2023 Calcium.ionized (Bld) [Mass/Vol] 1.40 mmol/L High 1.08-1.30 [facility] Comment on above: Order Comment: Speci men Type: BLOOD SPECIMEN [facility] Address: [address] [place] [address] Performed By: #### 1 995-0 #### [facility] [id number] [address] [place] [address] [place] Calcium.ionized adjusted to pH 7.4 (Bld) [Moles/Vol] 1.30 mmol/L Normal 1.08-1.30 [facility] Comment on above: Order Comment: Pio espino Type: BLOOD SPECIMEN [facility] Address: [address] [place] [address] Performed By: #### 1 995-0 #### [facility] [id number] [address] [place] [place] [address] [place] NURSING PROGon 06-18-2023 NURSING PROG HNO ID: [id number] Author: ALETHEA OLIVEROS RN Service: Nursing Author Type: Registered Nurse Type: Nursing Progress Note Filed: 06/18/2023 19:22 Note Text: Pt takes [place] at nite. Rn paged [employer] promotions executive to make aware. Awaiting orders. Continue to monitor Normal [facility] NURSING PROG HNO ID: [id number] Author: ALETHEA OLIVEROS RN Service: Nursing Author [...] night. This note was completed by: Alethea Terrell [facility] OPERATIVE NOon 06-18-2023 OPERATIVE NO HNO ID: [id number] Author: YANDEL DANIEL MD Service: Otolaryngology Author Type: Physician Type: Operative Report Filed: 06/19/2023 14:16 Note Text: [facility] [place] [phone] or [phone] [facility] C O N F I D E N T I A L I N F O R M A T I O N -------- OPERATIVE REPORT Patient Name: Gail Almeida Date of : 1955 Log ID: [id number] Date: 06/18/2023 Surgeon:Yandel Daniel MD Resident Surgeon(s): [...] permanent pathology. (more content not included)... Normal [facility] SURGICAL PATHOLOGYon 024 CASE REPORT Normal [facility] Comment on above: Order Comment: Speci srinivas Type: BLOOD SPECIMEN Ordering Facility: [facility] Address: [address] [place] [address] Result Comment: Surg ica Pathology Report Case: [id number] Authorizing Provider: Yandel Daniel MD Collected: 06/18/2023 01:50 PM Ordering Location: Admitting Received: 06/18/2023 02:57 PM Pathologist: Iliana Marti MD Specimens: A) - THYROID LOBE LEFT, Left substernal goiter B) - THYROID LOBE RIGHT, Right substernal goiter Performed By: #### 2 731-8 #### [facility] CLIA [id number] [address] [place] [address] [place] CLINICAL HISTORY Normal [facility] Comment on above: Order Comment: Speci srinivas Type: BLOOD SPECIMEN Ordering Facility: [facility] Address: [address] [place] [address] Result Comment: 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 Normal [facility] Comment on above: Order Comment: Speci men Type: BLOOD SPECIMEN Ordering Facility: [facility] Address: [address] [place] [address] Performed By: #### 2 731-8 #### [facility] CLIA [id number] [address] OF [place] FINAL DIAGNOSIS Normal [facility] Comment on above: Order Comment: Speci men Type: BLOOD SPECIMEN Ordering Facility: [facility] Address: [address] [place] [address] Result Comment: A,B. 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 - No parathyroid glands or lymph nodes were identified. - Negative for malignancy. Performed By: #### 2 731-8 #### [facility] CLIA [id number] [facility] [address] [place] FINAL PERFORMING LAB Normal [facility] Comment on above: Order Comment: Christianoi srinivas Type: BLOOD SPECIMEN Ordering Facility: [facility] Address: [address] [place] [address] Result Comment: Diag nostic interpretation performed at [facility], [address] [place] [address] CLIA# [id number] Monitoring Engineer: Adonis Dukes M.D. Performed By: #### 2 731-8 #### [facility] CLIA [id number] [address] [place] [address] [place] GROSS DESCRIPTION Normal [facility] Comment on above: Order Comment: Christianoi men Type: BLOOD SPECIMEN Ordering Facility: [facility] Address: [address] [place] [address] Result Comment: A. T HYROID LOBE LEFT Labeled: Thyroid lobe left Specimen received: Formalin Specimen type: Total thyroidectomy without attached skeletal muscle, lymph nodes, AND / OR large vessels Oriented: No Weight: 154.35 g Size: 11.5 x 8.2 x 4.1 cm Left lobe: 8.2 7.2 x 4.1 cm Isthmus: 5.5 x 2.5 x 1.9 cm Ink code: Blue- External surface [place] - Isthmus Sectioning: The specimen is serially sectioned from superior to inferior. Number of discrete nodules: 0 Background thyroid parenchyma: Multicystic, fleshy containing hemorrhagic fluid with areas of calcification. Attached skeletal muscle: Not identified Attached lymph nodes: Not identified Attached parathyroid: Not identified Gross photograph: Yes Cassette Code: A1-A2: Tester Equipment sections from left thyroid lobe A3: Tester Equipment section of the isthmus [place] [address] CLIA # [id number] 06/19/23 1:55 PM B. THYROID LOBE RIGHT Labeled: Thyroid lobe Right Specimen received: Formalin Specimen type: Total thyroidectomy without attached skeletal muscle, lymph nodes, AND / OR large vessels Oriented: No Weight: 75.2 g Size: Right lobe: 9.5 x 4.5 x 3.1 cm Ink code: Black- External surface [place] - Isthmus resection margin Sectioning: The specimen is serially sectioned from superior to inferior. Number of discrete nodules: 0 Background thyroid parenchyma: Multicystic, fleshy containing hemorrhagic fluid. Attached skeletal muscle: Not identified Attached lymph nodes: Not identified Attached parathyroid: Not identified Gross photograph: Yes Cassette Code: B1-B2: Tester Equipment sections of the right thyroid lobe [place] [address] CLIA # [id number] 06/19/23 1:55 PM Performed By: #### 2 731-8 #### [facility] IA [id number] [address] [place] [place] [address] [place] Basic metabolic 2000 panelon 05-30-2023 Anion gap [Moles/Vol] 10 mmol/L Normal -18 [facility] Comment on above: Order Comment: Speci men Type: BLOOD SPECIMEN Ordering Facility: [facility] Address: [address] [place] [address] Performed By: #### 2 4321-2 #### [facility] CLIA [id number] [address] [place] [address] [place] Calcium [Mass/Vol] 8.9 mg/dL Normal 8.5-10.2 [facility] Comment on above: Order Comment: Speci men Type: BLOOD SPECIMEN Ordering Facility: [facility] Address: [address] [place] [address] Performed By: #### 2 4321-2 #### [facility] IA [id number] [address] [place] [address] [place] Chloride [Moles/Vol] 105 mmol/L Normal 97-105 [facility] Comment on above: Order Comment: Speci men Type: BLOOD SPECIMEN Ordering Facility: [facility] Address: [address] [place] [address] Performed By: #### 2 4321-2 #### [facility] IA [id number] [address] [place] [address] [place] CO2 [Moles/Vol] 21 mmol/L Low 22-30 [facility] Comment on above: Order Comment: Speci men Type: BLOOD SPECIMEN Ordering Facility: [facility] Address: [address] [place] [address] Performed By: #### 2 4321-2 #### [facility] IA [id number] [place] [address] [place] Creatinine [Mass/Vol] 1.03 mg/dL High 0.58-0.96 [facility] Comment on above: Order Comment: Speci men Type: BLOOD SPECIMEN Ordering Facility: [facility] Address: [address] [place] [address] Performed By: #### 2 4321-2 #### [facility] IA [id number] [place] [address] [place] Creatinine and Glomerular filtration rate.predicted panel (S/P/Bld) 60 mL/min/1.73m??? Normal >=60 [facility] Comment on above: Order Comment: Speci men Type: BLOOD SPECIMEN Ordering Facility: [facility] Address: [facility] [place] [address] Result Comment: Leanna mated Glomerular Filtration Rate [...] GFR. Performed By: #### 2 4321-2 #### [facility] CLIA [id number] [address] [place] [address] [place] Glucose [Mass/Vol] 96 mg/dL Normal 74-99 [facility] Comment on above: Order Comment: Pio espino Type: BLOOD SPECIMEN Ordering Facility: [facility] Address: [address] [place] [address] Result Comment: The [place] Diabetes Association (ADA) provides guidance for cutoff [...] Standards of Medical Care in Diabetes 2016, [place] Diabetes Association. Diabetes Care. 2016.39(Suppl 1). Performed By: #### 2 4321-2 #### [facility] CLIA [id number] [address] [place] [address] [place] Potassium [Moles/Vol] 4.6 mmol/L Normal 3.7-5.1 [facility] Comment on above: Order Comment: Pio espino Type: BLOOD SPECIMEN Ordering Facility: [facility] Address: [address] [place] [address] Performed By: #### 2 4321-2 #### [facility] CLIA [id number] [address] [place] [address] [place] Sodium [Moles/Vol] 136 mmol/L Normal 136-144 [facility] Comment on above: Order Comment: Speci men Type: BLOOD SPECIMEN Ordering Facility: [facility] Address: [address] [place] [address] Performed By: #### 2 4321-2 #### [facility] CLIA [id number] [address] [place] [address] [place] Urea nitrogen [Mass/Vol] 28 mg/dL High - [facility] Comment on above: Order Comment: Speci men Type: BLOOD SPECIMEN Ordering Facility: [facility] Address: [address] [place] [address] Performed By: #### 2 4321-2 #### [facility] CLIA [id number] [place] CBC panel Auto (Bld)on 05-30 Erythrocyte distribution width (RBC) [Ratio] 13.0 % Normal 11.5-15.0 [facility] Comment on above: Order Comment: Speci men Type: BLOOD SPECIMEN Ordering Facility: [facility] Address: [address] [place] [address] Performed By: #### 5 8410-2 #### [facility] IA [id number] [address] [place] [id number] [place] Hematocrit (Bld) [Volume fraction] 38.6 % Normal 36.0-46.0 [facility] Comment on above: Order Comment: Speci men Type: BLOOD SPECIMEN Ordering Facility: [facility] Address: [address] [place] [address] Performed By: #### 5 8410-2 #### [facility] CLIA [id number] [place] Hemoglobin (Bld) [Mass/Vol] 12.2 g/dL Normal 11.5-15.5 [facility] Comment on above: Order Comment: Speci men Type: BLOOD SPECIMEN Ordering Facility: [facility] Address: [address] [place] [address] Performed By: #### 5 8410-2 #### [facility] IA [id number] [address] [place] [address] [place] MCH (RBC) [Entitic mass] 31.3 pg Normal 26.0-34.0 [facility] Comment on above: Order Comment: Speci men Type: BLOOD SPECIMEN Ordering Facility: [facility] Address: [address] [place] [address] Performed By: #### 5 8410-2 #### [facility] IA [id number] [address] [place] [address] [place] MCHC (RBC) [Mass/Vol] 31.6 g/dL Normal 30.5-36.0 [facility] Comment on above: Order Comment: Speci men Type: BLOOD SPECIMEN Ordering Facility: [facility] Address: [address] [place] [address] Performed By: #### 5 8410-2 #### [facility] IA [id number] [address] [place] MCV (RBC) [Entitic vol] 99.0 fL Normal 80.0-100.0 [facility] Comment on above: Order Comment: Speci men Type: BLOOD SPECIMEN Ordering Facility: [facility] Address: [address] [place] [address] Performed By: #### 5 8410-2 #### [facility] IA [id number] [address] [place] [address] [place] Nucleated RBC (Bld) [#/Vol] 10*3/uL Normal <0.01 [facility] Comment on above: Order Comment: Speci men Type: BLOOD SPECIMEN Ordering Facility: [facility] Address: [address] [place] [address] Performed By: #### 5 8410-2 #### [facility] IA [id number] [address] [place] [address] [place] Platelet mean volume (Bld) [Entitic vol] 9.9 fL Normal 9.0-12.7 [facility] Comment on above: Order Comment: Speci men Type: BLOOD SPECIMEN Ordering Facility: [facility] Address: [address] [place] [address] Performed By: #### 5 8410-2 #### [facility] IA [id number] [address] [place], [place] [id number] [place] [address] OF [facility] Platelets (Bld) [#/Vol] 254 10*3/uL Normal 150-400 [facility] Comment on above: Order Comment: Speci men Type: BLOOD SPECIMEN Ordering Facility: [facility] Address: [address] [place] [address] Performed By: #### 5 8410-2 #### [facility] CLIA [id number] [address] [place] [address] [place] RBC (Bld) [#/Vol] 3.90 10*6/uL Normal 3.90-5.20 [facility] Comment on above: Order Comment: Speci men Type: BLOOD SPECIMEN Ordering Facility: [facility] Address: [address] [place] [address] Performed By: #### 5 8410-2 #### [facility] IA [id number] [address] [place] [address] [place] [facility] [place] WBC (Bld) [#/Vol] 5.78 10*3/uL Normal 3.70-11.00 [facility] Comment on above: Order Comment: Speci men Type: BLOOD SPECIMEN Ordering Facility: [facility] Address: [address] [place] [address] Performed By: #### 5 8410-2 #### [facility] IA [id number] [address] OF [facility] CNOVon 05-30-2023 CNOV Office Visit (OTOLMN ) -------- GAIL [id number]) 1955 F Date Time Provider Department 05/30/23 1:00 PM YANDEL DANIEL OTOLMN During your visit today, we recorded the following information about you: Leif Campo Pattie 05/30/2023 12:58 PM Signed Tobacco Use: .25 packs/day, for 40 years. Types: Cigarettes Was smoking cessation packet given? Yes - Patient received smoking cessation packet at previous [facility] office visit. Was a referral initiated?Patient declined. Yandel Daniel MD 05/30/2023 2:42 PM Signed [facility] Note CC: Preoperative appointment HPI: [...] by mouth every 12 hours as needed. prsdsa-fewwatkd-xvjighq (ENZADYNE) 9,000-112,500- 112,500 unit capsule Take 1 [...] mass ASSES (more content not included)... Normal [facility] CT NECK SOFT TISSUE W IVCONo n 05-30-2023 CT NECK SOFT TISSUE W IVCON * * *Final Report* * * DATE OF EXAM: May 30 2023 10:30AM [facility] 0013 - CT NECK SOFT TISSUE W [...] is no lymphadenopathy or soft tissue mass Dice Person (topogram) images: No additional findings. IMPRESSION: LARGE GOITER DETAILED Organic Section Technical Lead: PSCB Transcribe Date/Time: May 30 2023 11:42A Dictated by : JOBY VILLAFUERTE MD This examination was interpreted and the report reviewed and electronically signed by: JOBY VILLAFUERTE MD on May 30 2023 11:47AM EST [id number] Normal [facility] HISTORY PHYSICALon HISTORY PHYSICAL HNO ID: [id number] Author: Kristen Avalos PA-C Service: ? Author Type: Physician Shore Man Type: HANDP Filed: 06/04/2023 1:48 PM Note [...] block. States she follows with cardiology in [place], [place], but patient poor historian so unable [...] MEDICATIONS: Prior to Admission medications as of 05/30/23 0927 Medication Sig Last Dose Taking acidophilus-pectin, citrus [...] Pio espino Type: BLOOD SPECIMEN Order[facility] Facility: [facility] Address: [address] [place] [address] Result Comment: eAG: (Estimated average glucose) is a calculated value from HgbA1c and is hr representative of the average blood glucose level in the last 2-3 month period. Performed By: #### 5 5454-3 #### [facility] CLIA [id number] [address] [facility] [place] [address] [place] HbA1c (Bld) [Mass fraction] 5.1 % Normal 4.3-5.6 [facility] Comment on above: Order Comment: Speci men Type: BLOOD SPECIMEN Ordering Facility: [facility] Address: [address] [place] [id number] Result Comment: [place] Diabetes Association guidelines indicate that patients with HgbA1c in the range 5.7-6.4% are at increased risk for development of diabetes, and intervention by lifestyle modification may be beneficial. HgbA1c greater or equal to 6.5% is considered diagnostic of diabetes. Performed By: #### 5 5454-3 #### [facility] CLIA [id number] [address] [facility] [id number] [id number] [facility] OF [facility] NURSING PROGon 05-30-2023 NURSING PROG HNO ID: [id number] Author: Rody Sher RN Service: Nursing Author [...] DATE: May 30, 2023 TIME: 10:13 AM [facility] CNOVon 04-11-2023 CNOV Office Visit (OESGMN ) -------- GAIL ALMEIDA ([id number]) 1955 F Date Time Provider Department 04/11/23 [...] details please see patient questionnaire scanned into [employer]. History: No past medical history on file. [...] refer to the patient questionnaire scanned into [employer]. Physical Exam: Vitals - There were no [...] Patient denie (more content not included)... Normal [facility] GAIL ALMEIDA ([id number]) 1955 F Date Time Provider Department 04/11/23 [...] mouth every 12 hours as needed. - vtfgcb-zruordow-jpbxcbp (ENZADYNE) 9,000-112,500- 112,500 unit capsule Take 1 capsule by mouth daily with food. - nystatin (MYCOSTATIN) cream Apply to affected area two times a day. - OLANZapine (ZYPREXA) 5 mg tablet Take 5 mg by mouth every 12 hours as needed. Problem List As Of Date: 04/11/2023 (None) Encounter Status:Closed by RADHA BRICE on 04/11/23 Normal [facility] Automated basophil %Ordered By: Mariana Pryor on 03-27-2023 Basophils/100 WBC (Bld) 0.6 % Normal . F [facility] Comment on above: Performed By: #### L IPID, T4F, [id number], TSH3 wRFLX #### [facility] [address] [place] [address] Automated basophil countOrde red By: Mariana Pryor on 03-27-2023 Basophils (Bld) [#/Vol] 0.0 10*3/uL Normal 0.0-0.2 [facility] Comment on above: Result Comment: PERF ORMED BY: [place] [address] PATHOLOGIST SALES PROGRAM COORDINATOR GATO PEÑA M.D. Performed By: #### L IPID, T4F, [id number], TSH3 wRFLX #### [facility] [address] [place] [address] Automated blood monocyte cou ntOrdered By: Mariana Pryor on 03-27-2023 Monocytes (Bld) [#/Vol] 0.6 10*3/uL Normal 0.0-0.8 [facility] Comment on above: Performed By: #### L IPID, T4F, [id number], TSH3 wRFLX #### [facility] [address] [place] [address] Automated eosinophil %Ordere d By: Mariana Pryor on 03-27-2023 Eosinophils/100 WBC (Bld) 0.4 % Normal . [facility] Comment on above: Performed By: #### L IPID, T4F, [id number], TSH3 wRFLX #### [address] Automated eosinophil countOr dered By: Mariana Pryor on 03-27-2023 Eosinophils (Bld) [#/Vol] 0.0 10*3/uL Normal 0.0-0.45 [facility] Comment on above: Performed By: #### L IPID, T4F, [id number], TSH3 wRFLX #### [address] Automated monocyte %Ordered By: Mariana Pryor on 03-27-2023 Monocytes/100 WBC (Bld) 8.3 % Normal . F [facility] Comment on above: Performed By: #### L IPID, T4F, [id number], TSH3 wRFLX #### [address] Automated neutrophil %Ordere d By: Mariana Pryor on 03-27-2023 Neutrophils/100 WBC (Bld) 75.8 % Normal . [facility] Comment on above: Performed By: #### L IPID, T4F, [id number], TSH3 wRFLX #### [address] Basic Metabolic Panelon 03-04 Creatinine Clr Calc Pharmacy 51.73 Normal [facility] Comment on above: Result Comment: PERF ORMED BY: [place] [address] PATHOLOGIST SALES PROGRAM COORDINATOR GATO PEÑA M.D. Performed By: #### L IPID, T4F, [id number], TSH3 wRFLX #### [address] GFR/1.73 sq M.predicted MDRD (S/P/Bld) [Vol rate/Area] mL/min/{1.73_m2} Normal [facility] Comment on above: Performed By: #### L IPID, T4F, [id number], TSH3 wRFLX #### [address] Calcium [Mass/volume] in Ser um or PlasmaOrdered By: Mariana Pryor on 03-27-2023 Calcium [Mass/Vol] 9.5 mg/dL Normal 8.6-10.3 [facility] Comment on above: Performed By: #### L IPID, T4F, [id number], TSH3 wRFLX #### [address] Carbon dioxide, total [Moles /volume] in Serum or PlasmaOrdered By: Mariana Pryor on 03-27-2023 CO2 [Moles/Vol] 19.3 mmol/L Low 21.0-31.0 [facility] Comment on above: Performed By: #### L IPID, T4F, [id number], TSH3 wRFLX #### [address] Chloride [Moles/volume] in S kishan or PlasmaOrdered By: Mariana Pryor on 03-27-2023 Chloride [Moles/Vol] 115 mmol/L High 98-107 [facility] Comment on above: Performed By: #### L IPID, T4F, [id number], TSH3 wRFLX #### [address] Complete Blood Count Auto Di ffon 03-27-2023 Mean Corpuscular HGB Conc 33.6 g/dL Normal 32.0-35.0 [facility] Comment on above: Performed By: #### L IPID, T4F, [id number], TSH3 wRFLX #### [address] NRBC% 0.0 /100{WBC} Normal 0-0.5 [facility] Comment on above: Performed By: #### L IPID, T4F, [id number], TSH3 wRFLX #### [address] [place] [address] [place] Creatinine [Mass/volume] in Serum or PlasmaOrdered By: Marianamachelle Pryor on 03-27-2023 Creatinine [Mass/Vol] 0.96 mg/dL Normal 0.60-1.20 [facility] Comment on above: Performed By: #### L IPID, T4F, [id number], TSH3 wRFLX #### [facility] [address] Erythrocyte distribution wid th [Ratio] by Automated countOrdered By: Marianamachelle Pryor on 03-27-2023 Erythrocyte distribution width (RBC) [Ratio] 13.2 % Normal 11.9-15.3 [facility] Comment on above: Performed By: #### L IPID, T4F, [id number], TSH3 wRFLX #### [place] [address] [place] Erythrocytes [#/volume] in B lood by Automated countOrdered By: Mariana Guillaume on 03-27-2023 RBC (Bld) [#/Vol] 3.54 10*6/uL Low 3.60-5.00 [facility] Comment on above: Performed By: #### L IPID, T4F, [id number], TSH3 wRFLX #### [address] Glucose [Mass/volume] in Ser um or PlasmaOrdered By: Mariana Pryor on 03-27-2023 Glucose [Mass/Vol] 110 mg/dL High 70-100 [facility] Comment on above: ADA recommended refe rence rangeRandom Glucose Reference Range is dependent on time and content of last meal. Glucose of more than 200 mg/dL in a nonstressed, ambulatory subject supports the diagnosis of Diabetes Mellitus. Result Comment: [place] om Glucose Reference Range is dependent on time and content of last meal. Glucose of more than 200 mg/dL in a nonstressed, ambulatory subject supports the diagnosis of Diabetes Mellitus. ADA recommended reference range Performed By: #### L IPID, T4F, [id number], TSH3 wRFLX #### [facility] [address] [place] [address] Hematocrit [Volume Fraction] of Blood by Automated countOrdered By: Mariana Pryor on 03-27-2023 Hematocrit (Bld) [Volume fraction] 34.1 % Normal 34.0-46.4 [facility] Comment on above: Performed By: #### L IPID, T4F, [id number], TSH3 wRFLX #### [facility] [address] [place] [address] Hemoglobin [Mass/volume] in BloodOrdered By: Mariana Pryor on 03-27-2023 Hemoglobin (Bld) [Mass/Vol] 11.5 g/dL Low 11.8-15.4 [facility] Comment on above: Performed By: #### L IPID, T4F, [id number], TSH3 wRFLX #### [facility] [address] [place] [address] Leukocytes [#/volume] correc cornelia for nucleated erythrocytes in Blood by Automated counOrdered By: Mariana Pryor on 03-27-2023 WBC corrected for nucl RBC Auto (Bld) [#/Vol] 7.7 10*3/uL 3.8-11.6 [facility] Leukocytes [#/volume] in Blo od by Automated countOrdered By: Mariana Guillaume on 03-27-2023 WBC (Bld) [#/Vol] 7.7 10*3/uL Normal 3.8-11.6 [facility] Comment on above: Performed By: #### L IPID, T4F, [id number], TSH3 wRFLX #### [facility] [address] [place] [address] [place] Lymphocytes [#/volume] in Bl ood by Automated countOrdered By: Mariana Guillaume on 03-27-2023 Lymphocytes (Bld) [#/Vol] 1.2 10*3/uL Normal 1.00-4.8 [facility] Comment on above: Performed By: #### L IPID, T4F, [id number], TSH3 wRFLX #### [address] Lymphocytes/100 leukocytes i n Blood by Automated countOrdered By: Mariana Pryor on 03-27-2023 Lymphocytes/100 WBC (Bld) 14.9 % Normal . [facility] Comment on above: Performed By: #### L IPID, T4F, [id number], TSH3 wRFLX #### [address] MCH [Entitic mass] by Automa cornelia countOrdered By: Mariana Pryor on 03-27-2023 MCH (RBC) [Entitic mass] 32.3 pg Normal 24.7-34.3 [facility] Comment on above: Performed By: #### L IPID, T4F, [id number], TSH3 wRFLX #### [address] MCHC Auto (RBC) [Mass/Vol]Or dered By: Mariana Pryor on 03-27-2023 MCHC (RBC) [Mass/Vol] 33.6 g/dL 32.0-35.0 [facility] MCV [Entitic volume] by Auto mated countOrdered By: Mariana Pryor on 03-27-2023 MCV (RBC) [Entitic vol] 96.4 fL Normal 80-100 [facility] Comment on above: Performed By: #### L IPID, T4F, [id number], TSH3 wRFLX #### [address] Neutrophils [#/volume] in Bl ood by Automated countOrdered By: Mariana Guillaume on 03-27-2023 Neutrophils (Bld) [#/Vol] 5.9 10*3/uL Normal 1.8-7.7 [facility] Comment on above: Performed By: #### L IPID, T4F, [id number], TSH3 wRFLX #### [address] No Panel InformationOrdered By: Mariana Pryor on 03-27-2023 Estimated GFR (CKD-EPI) > 60.0 mL/Min [facility] Creatinine Clearance (Chem 51.73 [facility] Nucleated erythrocytes [Pres ence] in Blood by Automated countOrdered By: Mariana Pryor on 03-27-2023 Nucleated RBC Auto Ql (Bld) 0.0 /100{WBC} 0-0.5 [facility] Platelet mean volume [Entiti c volume] in Blood by Automated countOrdered By: Mariana Pryor on 03-27-2023 Platelet mean volume (Bld) [Entitic vol] 8.5 fL Normal 6.3-10.7 [facility] Comment on above: Performed By: #### L IPID, T4F, [id number], TSH3 wRFLX #### [facility] [address] [place] [address] [place] Platelets [#/volume] in Bloo d by Automated countOrdered By: Mariana Pryor on 03-27-2023 Platelets (Bld) [#/Vol] 201 10*3/uL Normal 150-450 [facility] Comment on above: Performed By: #### L IPID, T4F, [id number], TSH3 wRFLX #### [facility] [address] [place] [address] [place] Potassium [Moles/volume] in Serum or PlasmaOrdered By: Mariana Pryor on 03-27-2023 Potassium [Moles/Vol] 4.0 mmol/L Normal 3.5-5.1 [facility] Comment on above: Performed By: #### L IPID, T4F, [id number], TSH3 wRFLX #### [facility] [address] Serum or plasma anion gap de terminationOrdered By: Mariana Pryor on 03-27-2023 Anion gap [Moles/Vol] 11.7 mmol/L Normal 6.0-15.0 [facility] Comment on above: Performed By: #### L IPID, T4F, [id number], TSH3 wRFLX #### [facility] [address] [place] [address] [place] Sodium [Moles/volume] in Ser um or PlasmaOrdered By: Mariana Pryor on 03-27-2023 Sodium [Moles/Vol] 142 mmol/L Normal 136-145 [facility] Comment on above: Performed By: #### L IPID, T4F, [id number], TSH3 wRFLX #### [facility] [address] [place] [address] [place] Urea nitrogen [Mass/volume] in Serum or PlasmaOrdered By: Mariana Pryor on 03-27-2023 Urea nitrogen [Mass/Vol] 20 mg/dL Normal 7-25 [facility] Comment on above: Performed By: #### L IPID, T4F, [id number], TSH3 wRFLX #### [facility] [address] [place] [address] [place] Alanine aminotransferase [En zymatic activity/volume] in Serum or PlasmaOrdered By: Mariana Pryor on 03-26-2023 ALT [Catalytic activity/Vol] 18 U/L Normal 7-52 [facility] Comment on above: Performed By: #### L ITH #### [facility] [address] [place] [address] [place] Albumin [Mass/volume] in Ser um or Plasma by Bromocresol green (BCG) dye binding methoOrdered By: Mariana Pryor on 03-26-2023 Albumin BCG dye [Mass/Vol] 4.1 g/dL 3.5-5.7 [facility] Alkaline phosphatase [Enzyma tic activity/volume] in Serum or PlasmaOrdered By: Mariana Pryor on 03-26-2023 ALP [Catalytic activity/Vol] 92 U/L Normal 34-104 [facility] Comment on above: Performed By: #### L ITH #### [facility] [address] [place] [address] [place] Aspartate aminotransferase [ Enzymatic activity/volume] in Serum or PlasmaOrdered By: Mariana Pryor on 03-26-2023 AST [Catalytic activity/Vol] 15 U/L Normal 13-39 [facility] Comment on above: Performed By: #### L ITH #### [facility] [address] [place] [address] Automated erythrocytes count in urine sediment (number/area)Ordered By: Mariana Pryor on 03-26-2023 RBC Auto (Urine sed) [#/Area] None seen [HPF] 0-4 [facility] Automated leukocytes count i n urine sediment (number/area)Ordered By: Mariana Pryor on 03-26-2023 WBC Auto (Urine sed) [#/Area] 20-49 [HPF] 0-4 [facility] Bilirubin Auto test strip Ql (U)Ordered By: Mariana Pryor on 03-26-2023 Bilirubin Ql (U) Negative Negative [facility] Bilirubin.total [Mass/volume ] in Serum or PlasmaOrdered By: Mariana Pryor on 03-26-2023 Bilirubin [Mass/Vol] 0.4 mg/dL Normal 0.3-1.0 [facility] Comment on above: Performed By: #### L ITH #### [facility] [address] [place] [address] CT abdomen pelvis wo conon 1 CT abdomen pelvis wo con [place] [address] CT Scan Report Signed Patient: Gail Almeida MR#: [id number] : 1955 Acct:[id number] Age/Sex: 67 / F ADM Date: 03/26/23 Loc: Room: [address] [place] [address] Type: ADM IN Attending Dr: Joe Davis [...] Lu Gonzales M.D.03/26/2023 8:39 PM Dictation Location: [place] [address] Transcribed By: [facility] 03/26/232038 Dictated By: Lu Gonazles MD 03/26/232031 Signed By: 03/26/232038 Normal [facility] Cholesterol [Mass/volume] in Serum or PlasmaOrdered By: Joe Davis on 03-26-2023 Cholesterol [Mass/Vol] 165 mg/dL Normal 140-200 [facility] Comment on above: Chol less than 200 m g/dl low riskChol 201-239 mg/dl borderline riskChol 240 mg/dl and greater high risk Result Comment: Chol less than 200 mg/dl low risk Chol 201-239 mg/dl borderline risk Chol 240 mg/dl and greater high risk Performed By: #### V [id number], TSH3 wRFLX, T4F, LIPID #### [facility] [address] [place] [address] [place] Cholesterol in LDL Calc [Mas s/Vol]Ordered By: Joe Davis on 03-26-2023 Cholesterol in LDL [Mass/Vol] 95 mg/dL 0-100 [facility] Comment on above: LDL ATP III CLASSIFI CATIONLDL less than 100 mg/dL OptimalLDL 100-129 mg/dL Near or above optimalLDL 130-159 mg/dL Borderline highLDL 160-189 mg/dL HighLDL greater than 189 mg/dL Very high Cholesterol in VLDL Calc [Ma ss/Vol]Ordered By: Joe Davis on 03-26-2023 Cholesterol in VLDL [Mass/Vol] 17 mg/dL [facility] Complete Blood Count Auto Di ffon 03-26-2023 Basophils (Bld) [#/Vol] 0.0 10*3/uL Normal 0.0-0.2 [facility] Comment on above: Result Comment: PERF ORMED BY: [place] [address] PATHOLOGIST SALES PROGRAM COORDINATOR GATO PEÑA M.D. Performed By: #### L ITH #### [facility] [address] [place] [address] [place] Basophils/100 WBC (Bld) 0.4 % Normal . T [facility]onna [facility] Comment on above: Performed By: #### L ITH #### [facility] [address] [place] [address] [place] Eosinophils (Bld) [#/Vol] 0.0 10*3/uL Normal 0.0-0.45 [facility] Comment on above: Performed By: #### L ITH #### [place] [address] [place] Eosinophils/100 WBC (Bld) 0.0 % Normal . [facility] Comment on above: Performed By: #### L ITH #### [address] Erythrocyte distribution width (RBC) [Ratio] 13.1 % Normal 11.9-15.3 [facility] Comment on above: Performed By: #### L ITH #### [address] Hematocrit (Bld) [Volume fraction] 36.8 % Normal 34.0-46.4 [facility] Comment on above: Performed By: #### L ITH #### [address] Hemoglobin (Bld) [Mass/Vol] 12.2 g/dL Normal 11.8-15.4 [facility] Comment on above: Performed By: #### L ITH #### [address] Lymphocytes (Bld) [#/Vol] 0.4 10*3/uL Low 1.00-4.8 [facility] Comment on above: Performed By: #### L ITH #### [address] Lymphocytes/100 WBC (Bld) 5.2 % Normal . [facility] Comment on above: Performed By: #### L ITH #### [address] MCH (RBC) [Entitic mass] 31.7 pg Normal 24.7-34.3 [facility] Comment on above: Performed By: #### L ITH #### [address] MCV (RBC) [Entitic vol] 95.4 fL Normal 80-100 T [facility] Comment on above: Performed By: #### L ITH #### [address] Mean Corpuscular HGB Conc 33.2 g/dL Normal 32.0-35.0 [facility] Comment on above: Performed By: #### L ITH #### [address] Monocytes (Bld) [#/Vol] 0.3 10*3/uL Normal 0.0-0.8 [facility] Comment on above: Performed By: #### L ITH #### [address] Monocytes/100 WBC (Bld) 4.6 % Normal . [facility] Comment on above: Performed By: #### L ITH #### [address] Neutrophils (Bld) [#/Vol] 6.7 10*3/uL Normal 1.8-7.7 [facility] Comment on above: Performed By: #### L ITH #### [address] Neutrophils/100 WBC (Bld) 89.8 % Normal . [facility] Comment on above: Performed By: #### L ITH #### [address] NRBC% 0.0 /100{WBC} Normal 0-0.5 [facility] Comment on above: Performed By: #### L ITH #### [address] Platelet mean volume (Bld) [Entitic vol] 8.4 fL Normal 6.3-10.7 [facility] Comment on above: Performed By: #### L ITH #### [place] [address] [place] Platelets (Bld) [#/Vol] 215 10*3/uL Normal 150-450 [facility] Comment on above: Performed By: #### L ITH #### [place] [address] [place] RBC (Bld) [#/Vol] 3.86 10*6/uL Normal 3.60-5.00 [facility] Comment on above: Performed By: #### L ITH #### [place] [address] [place] WBC (Bld) [#/Vol] 7.5 10*3/uL Normal 3.8-11.6 [facility] Comment on above: Performed By: #### L ITH #### [address] Comprehensive Metabolic Pane eusebia 03-26-2023 Albumin [Mass/Vol] 4.1 g/dL Normal 3.5-5.7 [facility] Comment on above: Performed By: #### L ITH #### [address] Anion gap [Moles/Vol] 5.5 mmol/L Low 6.0-15.0 [facility] Comment on above: Performed By: #### L ITH #### [address] Calcium [Mass/Vol] 9.5 mg/dL Normal 8.6-10.3 [facility] Comment on above: Performed By: #### L ITH #### [address] Chloride [Moles/Vol] 120 mmol/L High 98-107 [facility] Comment on above: Performed By: #### L ITH #### [address] CO2 [Moles/Vol] 20.4 mmol/L Low 21.0-31.0 [facility] Comment on above: Performed By: #### L ITH #### [address] Creatinine [Mass/Vol] 0.99 mg/dL Normal 0.60-1.20 [facility] Comment on above: Performed By: #### L ITH #### [address] Creatinine Clr Calc Pharmacy 50.16 Normal [facility] Comment on above: Performed By: #### L ITH #### [address] GFR/1.73 sq M.predicted MDRD (S/P/Bld) [Vol rate/Area] mL/min/{1.73_m2} Normal [facility] Comment on above: Performed By: #### L ITH #### [facility] [address] Glucose [Mass/Vol] 119 mg/dL High 70-100 [facility] Comment on above: Result Comment: [place] Glucose Reference Range is dependent on time and content of last meal. Glucose of more than 200 mg/dL in a nonstressed, ambulatory subject supports the diagnosis of Diabetes Mellitus. ADA recommended reference range Performed By: #### L ITH #### [address] Potassium [Moles/Vol] 3.9 mmol/L Normal 3.5-5.1 [facility] Comment on above: Performed By: #### L ITH #### [address] Sodium [Moles/Vol] 142 mmol/L Normal 136-145 [facility] Comment on above: Performed By: #### L ITH #### [place] [address] [place] Urea nitrogen [Mass/Vol] 22 mg/dL Normal 7-25 [facility] Comment on above: Performed By: #### L ITH #### [place] [address] [place] Dipstick and Microscopicon 1 Bacteria,Urine None Seen Normal None Seen [facility] Comment on above: Order Comment: Name Collection Type:: Clean-Voided Midstream Performed By: #### C UU, ADDONUAPLUS #### [place] [id number] [place] Bilirubin,Urine Negative Normal Negative [facility] Comment on above: Order Comment: Name Collection Type:: Clean-Voided Midstream Performed By: #### C UU, ADDONUAPLUS #### [place] [id number] [place] Glucose Ql (U) Normal Normal Normal [facility] Comment on above: Order Comment: Name Collection Type:: Clean-Voided Midstream Performed By: #### C UU, ADDONUAPLUS #### [place] [address] [place] Hyaline Casts,Urine None Seen Normal 0-8 [facility] Comment on above: Order Comment: Name Collection Type:: Clean-Voided Midstream Result Comment: PERF ORMED BY: [place] [address] PATHOLOGIST SALES PROGRAM COORDINATOR GATO PEÑA M.D. Performed By: #### C UU, ADDONUAPLUS #### [address] Ketones Ql (U) 1+ High Negative [facility] Comment on above: Order Comment: Name Collection Type:: Clean-Voided Midstream Performed By: #### C UU, ADDONUAPLUS #### [place] [address] [place] Leukocyte esterase Test strip Ql (U) 3+ High Negative [facility] Comment on above: Order Comment: Name Collection Type:: Clean-Voided Midstream Performed By: #### C UU, ADDONUAPLUS #### [place] [address] [place] Nitrite,Urine Negative Normal Negative [facility] Comment on above: Order Comment: Name Collection Type:: Clean-Voided Midstream Performed By: #### C UU, ADDONUAPLUS #### [place] [address] [place] Occult Blood,Urine Trace High Negative [facility] Comment on above: Order Comment: Name Collection Type:: Clean-Voided Midstream Result Comment: PERF ORMED BY: [place] [address] PATHOLOGIST SALES PROGRAM COORDINATOR GATO PEÑA M.D. Performed By: #### C UU, ADDONUAPLUS #### [place] [address] [place] Protein,Urine Negative Normal Negative [facility] Comment on above: Order Comment: Name Collection Type:: Clean-Voided Midstream Performed By: #### C UU, ADDONUAPLUS #### [address] RBC,Urine None Seen Normal 0-4 [facility] Comment on above: Order Comment: Name Collection Type:: Clean-Voided Midstream Performed By: #### C UU, ADDONUAPLUS #### [address] Specificy [place],Urine 1.010 Normal 1.00 1-1.03 0 [facility] Comment on above: Order Comment: Name Collection Type:: Clean-Voided Midstream Performed By: #### C UU, ADDONUAPLUS #### [address] Squamous Epithelial Cell,Urine 0-1 Normal 0-2 [facility] Comment on above: Order Comment: Name Collection Type:: Clean-Voided Midstream Performed By: #### C UU, ADDONUAPLUS #### [address] Urobilinogen,Urine Normal Normal Normal [facility] Comment on above: Order Comment: Name Collection Type:: Clean-Voided Midstream Performed By: #### C UU, ADDONUAPLUS #### [address] WBC,Urine 20-49 High 0-4 [facility] Comment on above: Order Comment: Name Collection Type:: Clean-Voided Midstream Performed By: #### C UU, ADDONUAPLUS #### [address] ECG 12 lead ECGon 03-26-2023 ECG 12 lead ECG [facility] [place] [address] [place] [address] Electrocardiograph Report Signed Patient: Gail Almeida MR#: [id number] 250 : 1955 Acct:[id number] Age/Sex: 67 / F ADM Date: 03/26/23 Loc: Room: [address] [place] [address] Type: ADM IN Attending Dr: Joe Davis [...] MUS Signed By Tamir Robles DO 03/26 190 Normal [facility] Ketones Auto test strip (U) [Mass/Vol]Ordered By: Mariana Pryor on 03-26-2023 Ketones (U) [Mass/Vol] 1+ Negative [facility] - UrinalysisOrder ed By: Mariana Pryor on 03-26-2023 Hyaline casts LM Ql (Urine sed) None seen [LPF] 0-8 [facility] Lipase [Enzymatic activity/v olume] in Serum or PlasmaOrdered By: Mariana Pryor on 03-26-2023 Lipase [Catalytic activity/Vol] 11.0 U/L Normal 11.0-82.0 [facility] Comment on above: Result Comment: PERF ORMED BY: [place] [address] PATHOLOGIST SALES PROGRAM COORDINATOR GATO PEÑA M.D. Performed By: #### L ITH #### [address] Lipid Panelon 03-26-2023 LDL Cholesterol,Calculated 95 mg/dL Normal 0-100 [facility] Comment on above: Result Comment: LDL ATP III CLASSIFICATION LDL less than 100 mg/dL Optimal LDL 100-129 mg/dL Near or above optimal LDL 130-159 mg/dL Borderline high LDL 160-189 mg/dL High LDL greater than 189 mg/dL Very high Performed By: #### V [id number], TSH3 wRFLX, T4F, LIPID #### [facility] [address] [place] [id number] [facility] Triglyceride w/Reflex 86 mg/dL Normal 0-149 [facility] Comment on above: Result Comment: TRIG ATP III CLASSIFICATION TRIG less than 150 mg/dL Normal TRIG 150-199 mg/dL Borderline high TRIG 200-500 mg/dL High TRIG greater than 500 mg/dL Very high Standard traceable to the Center for Disease Conrtrol and Prevention (CDC) test method. Performed By: #### V [id number], TSH3 wRFLX, T4F, LIPID #### [address] VLDL CHOLESTEROL 17 mg/dL Normal [facility] Comment on above: Performed By: #### V [id number], TSH3 wRFLX, T4F, LIPID #### [facility] [address] [place] [Moles/volume] in Se rum or PlasmaOrdered By: Joe Davis on 03-26-2023 [place] [Moles/Vol] 0.20 mmol/L Low 0.60-1.20 [facility] Comment on above: Result Comment: PERF ORMED BY: [place] [address] PATHOLOGIST SALES PROGRAM COORDINATOR GATO PEÑA M.D. Performed By: #### L ITH #### [facility] [address] [place] [address] Protein Auto test strip (U) [Mass/Vol]Ordered By: Mariana Pryor on 03-26-2023 Protein (U) [Mass/Vol] Negative Negative [facility] Protein [Mass/volume] in Ser um or PlasmaOrdered By: Mariana Pryor on 03-26-2023 Protein [Mass/Vol] 6.5 g/dL Normal 6.4-8.9 [facility] Comment on above: Performed By: #### L ITH #### [facility] [address] Serum globulin measurement b y calculation (mass/volume)Ordered By: Mariana Pryor on 03-26-2023 Globulin (S) [Mass/Vol] 2.4 g/dL Normal F [facility] Comment on above: Performed By: #### L ITH #### [address] Serum or plasma albumin/glob ulin mass ratioOrdered By: Mariana Pryor on 03-26-2023 Albumin/Globulin [Mass ratio] 1.7 {ratio} Normal [facility] Comment on above: Performed By: #### L ITH #### [address] Serum or plasma high density lipoprotein (HDL) cholesterol measurementOrdered By: Joe Davis on 03-26-2023 Cholesterol in HDL [Mass/Vol] 53 mg/dL Normal 23-92 [facility] Comment on above: HDL CHOL ATP-III CLA SSIFICATION Cardiovascular RiskHDL > or equal to 60 mg/dL LOWHDL < 40 mg/dL HIGH Result Comment: HDL CHOL ATP-III CLASSIFICATION Cardiovascular Risk HDL > or equal to 60 mg/dL LOW HDL < 40 mg/dL HIGH Performed By: #### V [id number], TSH3 wRFLX, T4F, LIPID #### [address] Serum or plasma total choles terol/high density lipoprotein (HDL) cholesterol mass ratOrdered By: Joe Davis on 03-26-2023 Cholesterol.total/Judy sterol in HDL [Mass ratio] 3.1 {ratio} Normal <5.0 [facility] Comment on above: Performed By: #### V [id number], TSH3 wRFLX, T4F, LIPID #### [address] Squamous epithelial cells de tection in urine sediment by light microscopyOrdered By: Mariana Pryor on 03-26-2023 Epithelial cells.squamous LM Ql (Urine sed) 0-1 [HPF] 0-2 [facility] Thyroid Stim Hormone w/Rflxo n 03-26-2023 Thyroid Stim Hormone w/Rflx 0.42 u[iU]/mL Low 0.45-5.33 [facility] Comment on above: Performed By: #### L ITH #### [facility] [address] Thyrotropin [Units/volume] i n Serum or PlasmaOrdered By: Joe Davis on 03-26-2023 TSH Qn 0.42 m[IU]/L 0.45-5.33 [facility] Thyroxine (T4) free [Mass/vo lume] in Serum or PlasmaOrdered By: Joe Davis on 03-26-2023 Free T4 [Mass/Vol] 0.74 ng/dL Normal 0.61-1.12 [facility] Comment on above: Performed By: #### V [id number], TSH3 wRFLX, T4F, LIPID #### [facility] [address] [place] [id number] [facility] Triglyceride [Mass/volume] i n Serum or PlasmaOrdered By: Joe Davis on 03-26-2023 Triglyceride [Mass/Vol] 86 mg/dL 0-149 F [facility] Comment on above: TRIG ATP III CLASSIF ICATIONTRIG less than 150 mg/dL NormalTRIG 150-199 mg/dL Borderline highTRIG 200-500 mg/dL High TRIG greater than 500 mg/dL Very highStandard traceable to the Center for Disease Conrtrol and Prevention (CDC) test method. Urine Cultureon 03-26-2023 Bacteria identified Cx Nom (U) ORGANISM: Morganella morganii (O:REBECA) [place] Count 30,000 Aerobic FELIZ Charge (NMIC56) - [...] RESISTANT TO ALL B-LACTAM DRUGS. PERFORMED BY: [place] [address] PATHOLOGIST SALES PROGRAM COORDINATOR GATO PEÑA M.D. Normal [facility] Comment on above: Performed By: #### C UU, KAIONUAPLUS #### [address] Urine appearanceOrdered By: Mariana Pryor on 03-26-2023 Appearance (U) Clear Normal Clear [facility] Comment on above: Order Comment: Name Collection Type:: Clean-Voided Midstream Performed By: #### C UU, ADDONUAPLUS #### [address] Urine bacteria detection by automated methodOrdered By: Mariana Pryor on 03-26-2023 Bacteria Auto Ql (U) None seen None Seen [facility] Urine colorOrdered By: Mariana Pryor on 03-26-2023 Color (U) Yellow Normal Yellow [facility] Comment on above: Order Comment: Name Collection Type:: Clean-Voided Midstream Performed By: #### C UU, ADDONUAPLUS #### [address] [place] [address] [facility] Urine glucose measurement by automated test strip (mass/volume)Ordered By: Mariana Pryor on 03-26-2023 Glucose Auto test strip (U) [Mass/Vol] Normal mg/dL Normal [facility] Urine hemoglobin detection b y automated test stripOrdered By: Mariana Guillaume on 03-26-2023 Hemoglobin Auto test strip Ql (U) Trace Negative [facility] Urine leukocyte esterase det ection by automated test stripOrdered By: Mariana Pryor on 03-26-2023 Leukocyte esterase Auto test strip Ql (U) 3+ Negative [facility] Urine nitrite detection by a utomated test stripOrdered By: Mariana Pryor on 03-26-2023 Nitrite Auto test strip Ql (U) Negative Negative [facility] Urine pH measurement by auto mated test stripOrdered By: Mariana Pryor on 03-26-2023 pH (U) 6.0 [pH] Normal 5.0-9.0 [facility] Comment on above: Order Comment: Name Collection Type:: Clean-Voided Midstream Performed By: #### C UU, ADDONUAPLUS #### [facility] [address] [place], [place] [id number] [facility] Urobilinogen Auto test strip (U) [Mass/Vol]Ordered By: Mariana Pryor on 03-26-2023 Urobilinogen (U) [Mass/Vol] Normal mg/dL Normal [facility] Vitamin D 25 Hydroxy Totalon 03-26-2023 Vitamin D 25 Hydroxy Total 34.5 ng/mL Normal 30-100 [facility] Comment on above: Result Comment: EDUARDO MIN D STATUS 25(OH)VITAMIN D RANGE (ng/mL) Deficient <20 Insufficient 20 to <30 Sufficient 30 to 100 Reference: Lucio MF,Renée DRAKE, Francisco CARPIO, et al. Evaluation,treatment, and prevention of vitamin D deficiency; an Endocrine Society clinical practice guideline. JCEM. 2010; 96(7):1911-30. PERFORMED BY: [place] [id number] PATHOLOGIST SALES PROGRAM COORDINATOR GATO PEÑA M.D. Performed By: #### L [facility] #### [address] Vitamin D+Metabolites [Mass/ volume] in Serum or PlasmaOrdered By: Joe Davis on 03-26-2023 Vitamin D+Metabolites [Mass/Vol] 34.5 ng/mL 30-100 [facility] Comment on above: VITAMIN D STATUS 25( [place])VITAMIN D RANGE (ng/mL) Deficient <20 Insufficient 20 to <30Sufficient 30 to 100Reference: Lucio MF,Renée NC, Francisco CARPIO, et al. Evaluation,treatment, and prevention of vitamin D deficiency; an Endocrine Society clinical practice guideline. JCEM. 2010; 96(7):1911-30. pH Auto test strip (U)Ordere d By: Mariana Pryor on 03-26-2023 pH (U) 1.010 [pH] 1.001-1.03 0 [facility] Alanine aminotransferase [En zymatic activity/volume] in Serum or PlasmaOrdered By: Mariana Kee on 03-14-2023 ALT [Catalytic activity/Vol] 28 U/L 7-52 [facility] Albumin [Mass/volume] in Ser um or Plasma by Bromocresol green (BCG) dye binding methoOrdered By: Mariana Kee on 03-14-2023 Albumin BCG dye [Mass/Vol] 3.9 g/dL 3.5-5.7 [facility] Alkaline phosphatase [Enzyma tic activity/volume] in Serum or PlasmaOrdered By: Mariana Kee on 03-14-2023 ALP [Catalytic activity/Vol] 86 U/L 34-104 [facility] Aspartate aminotransferase [ Enzymatic activity/volume] in Serum or PlasmaOrdered By: Mariana Kee on 03-14-2023 AST [Catalytic activity/Vol] 18 U/L 13-39 [facility] Basophils Auto (Bld) [#/Vol] Ordered By: Mariana Kee on 03-14-2023 Basophils (Bld) [#/Vol] 0.1 10*3/uL 0.0-0.2 [facility] Basophils/100 WBC Auto (Bld) Ordered By: Mariana Kee on 03-14-2023 Basophils/100 WBC (Bld) 1.0 % . [facility] Bilirubin.total [Mass/volume ] in Serum or PlasmaOrdered By: Mariana Kee on 03-14-2023 Bilirubin [Mass/Vol] 0.3 mg/dL 0.3-1.0 [facility] Calcium [Mass/volume] in Ser um or PlasmaOrdered By: Mariana Kee on 03-14-2023 Calcium [Mass/Vol] 9.3 mg/dL 8.6-10.3 [facility] Carbon dioxide, total [Moles /volume] in Serum or PlasmaOrdered By: Mariana Kee on 03-14-2023 CO2 [Moles/Vol] 20.1 mmol/L 21.0-31.0 [facility] Chloride [Moles/volume] in S kishan or PlasmaOrdered By: Mariana Kee on 03-14-2023 Chloride [Moles/Vol] 116 mmol/L 98-107 [facility] Creatinine [Mass/volume] in Serum or PlasmaOrdered By: Mariana Kee on 03-14-2023 Creatinine [Mass/Vol] 1.01 mg/dL 0.60-1.20 [facility] Eosinophils Auto (Bld) [#/Vo l]Ordered By: Mariana Kee on 03-14-2023 Eosinophils (Bld) [#/Vol] 0.2 10*3/uL 0.0-0.45 [facility] Eosinophils/100 WBC Auto (Bl d)Ordered By: Mariana Kee on 03-14-2023 Eosinophils/100 WBC (Bld) 4.6 % . [facility] Erythrocyte distribution wid th Auto (RBC) [Ratio]Ordered By: Mariana Kee on 03-14-2023 Erythrocyte distribution width (RBC) [Ratio] 13.3 % 11.9-15.3 [facility] Globulin Calc (S) [Mass/Vol] Ordered By: Mariana Kee on 03-14-2023 Globulin (S) [Mass/Vol] 2.0 g/dL [facility] Glucose [Mass/volume] in Ser um or PlasmaOrdered By: Mariana Kee on 03-14-2023 Glucose [Mass/Vol] 101 mg/dL 70-100 [facility] Comment on above: ADA recommended refe rence rangeRandom Glucose Reference Range is dependent on time and content of last meal. Glucose of more than 200 mg/dL in a nonstressed, ambulatory subject supports the diagnosis of Diabetes Mellitus. Hematocrit Auto (Bld) [Volum e fraction]Ordered By: Mariana Kee on 03-14-2023 Hematocrit (Bld) [Volume fraction] 37.4 % 34.0-46.4 [facility] Hemoglobin [Mass/volume] in BloodOrdered By: Mariana Kee on 03-14-2023 Hemoglobin (Bld) [Mass/Vol] 12.5 g/dL 11.8-15.4 [facility] Leukocytes [#/volume] correc cornelia for nucleated erythrocytes in Blood by Automated counOrdered By: Mariana Kee on 03-14-2023 WBC corrected for nucl RBC Auto (Bld) [#/Vol] 5.2 10*3/uL 3.8-11.6 [facility] Lipase [Enzymatic activity/v olume] in Serum or PlasmaOrdered By: Mariana Kee on 03-14-2023 Lipase [Catalytic activity/Vol] 21.0 U/L 11.0-82.0 [facility] Lymphocytes Auto (Bld) [#/Vo l]Ordered By: Mariana Kee on 03-14-2023 Lymphocytes (Bld) [#/Vol] 1.9 10*3/uL 1.00-4.8 [facility] Lymphocytes/100 WBC Auto (Bl d)Ordered By: Mariana Kee on 03-14-2023 Lymphocytes/100 WBC (Bld) 37.2 % . [facility] MCH Auto (RBC) [Entitic mass ]Ordered By: Mariana Kee on 03-14-2023 MCH (RBC) [Entitic mass] 31.9 pg 24.7-34.3 [facility] MCHC Auto (RBC) [Mass/Vol]Or dered By: Mariana Kee on 03-14-2023 MCHC (RBC) [Mass/Vol] 33.5 g/dL 32.0-35.0 [facility] MCV Auto (RBC) [Entitic vol] Ordered By: Mariana Kee on 03-14-2023 MCV (RBC) [Entitic vol] 95.2 fL 80-100 [facility] Monocytes Auto (Bld) [#/Vol] Ordered By: Mariana Kee on 03-14-2023 Monocytes (Bld) [#/Vol] 0.6 10*3/uL 0.0-0.8 [facility] Monocytes/100 WBC Auto (Bld) Ordered By: Mariana Kee on 03-14-2023 Monocytes/100 WBC (Bld) 11.5 % . [facility] Neutrophils Auto (Bld) [#/Vo l]Ordered By: Mariana Kee on 03-14-2023 Neutrophils (Bld) [#/Vol] 2.4 10*3/uL 1.8-7.7 [facility] Neutrophils/100 WBC Auto (Bl d)Ordered By: Mariana Kee on 03-14-2023 Neutrophils/100 WBC (Bld) 45.7 % . [facility] No Panel InformationOrdered By: Mariana Kee on 03-14-2023 Estimated GFR (CKD-EPI) > 60.0 mL/Min [facility] Creatinine Clearance (Chem 49.17 [facility] Nucleated erythrocytes [Pres ence] in Blood by Automated countOrdered By: Mariana Kee on 03-14-2023 Nucleated RBC Auto Ql (Bld) 0.1 /100{WBC} 0-0.5 [facility] Platelet mean volume Auto (B ld) [Entitic vol]Ordered By: Mariana Kee on 03-14-2023 Platelet mean volume (Bld) [Entitic vol] 8.7 fL 6.3-10.7 [facility] Platelets Auto (Bld) [#/Vol] Ordered By: Mariana Kee on 03-14-2023 Platelets (Bld) [#/Vol] 212 10*3/uL 150-450 [facility] Potassium [Moles/volume] in Serum or PlasmaOrdered By: Mariana Kee on 03-14-2023 Potassium [Moles/Vol] 4.2 mmol/L 3.5-5.1 [facility] Protein [Mass/volume] in Ser um or PlasmaOrdered By: Mariana Kee on 03-14-2023 Protein [Mass/Vol] 5.9 g/dL 6.4-8.9 [facility] RBC Auto (Bld) [#/Vol]Ordere d By: Mariana Kee on 03-14-2023 RBC (Bld) [#/Vol] 3.93 10*6/uL 3.60-5.00 [facility] Serum or plasma albumin/glob ulin mass ratioOrdered By: Mariana Kee on 03-14-2023 Albumin/Globulin [Mass ratio] 2.0 {ratio} [facility] Serum or plasma anion gap de terminationOrdered By: Mariana Kee on 03-14-2023 Anion gap [Moles/Vol] 9.1 mmol/L 6.0-15.0 [facility] Sodium [Moles/volume] in Ser um or PlasmaOrdered By: Mariana Kee on 03-14-2023 Sodium [Moles/Vol] 141 mmol/L 136-145 [facility] Urea nitrogen [Mass/volume] in Serum or PlasmaOrdered By: Mariana Kee on 03-14-2023 Urea nitrogen [Mass/Vol] 30 mg/dL 7-25 [facility] WBC Auto (Bld) [#/Vol]Ordere d By: Mariana Kee on 03-14-2023 WBC (Bld) [#/Vol] 5.2 10*3/uL 3.8-11.6 [facility] Automated erythrocytes count in urine sediment (number/area)Ordered By: Joe Davis on 03-12-2023 RBC Auto (Urine sed) [#/Area] 0-1 [HPF] 0-4 [facility] Automated leukocytes count i n urine sediment (number/area)Ordered By: Joe Davis on 03-12-2023 WBC Auto (Urine sed) [#/Area] 20-49 [HPF] 0-4 [facility] Bilirubin Test strip Ql (U)O rdered By: Joe Davis on 03-12-2023 Bilirubin Ql (U) Negative Negative [facility] Cholesterol [Mass/volume] in Serum or PlasmaOrdered By: Joe Davis on 03-12-2023 Cholesterol [Mass/Vol] 162 mg/dL 140-200 [facility] Comment on above: Chol less than 200 m g/dl low riskChol 201-239 mg/dl borderline riskChol 240 mg/dl and greater high risk Cholesterol in LDL Calc [Mas s/Vol]Ordered By: Joe Davis on 03-12-2023 Cholesterol in LDL [Mass/Vol] 95 mg/dL 0-100 [facility] Comment on above: LDL ATP III CLASSIFI CATIONLDL less than 100 mg/dL OptimalLDL 100-129 mg/dL Near or above optimalLDL 130-159 mg/dL Borderline highLDL 160-189 mg/dL HighLDL greater than 189 mg/dL Very high Cholesterol in VLDL Calc [Ma ss/Vol]Ordered By: Joe Davis on 03-12-2023 Cholesterol in VLDL [Mass/Vol] 15 mg/dL [facility] Color Auto (U)Ordered By: Ab sofia Davis on 03-12-2023 Color (U) Yellow Yellow [facility] Ketones Auto test strip (U) [Mass/Vol]Ordered By: Joe Davis on 03-12-2023 Ketones (U) [Mass/Vol] Negative Negative [facility] - UrinalysisOrder ed By: Joe Davis on 03-12-2023 Hyaline casts LM Ql (Urine sed) 0-8 [LPF] 0-8 [facility] Nitrite Test strip Ql (U)Ord ered By: Joe Davis on 03-12-2023 Nitrite Ql (U) Negative Negative [facility] Protein Auto test strip (U) [Mass/Vol]Ordered By: Joe Davis on 03-12-2023 Protein (U) [Mass/Vol] Negative Negative [facility] Serum or plasma high density lipoprotein (HDL) cholesterol measurementOrdered By: Joe Davis on 03-12-2023 Cholesterol in HDL [Mass/Vol] 52 mg/dL 23-92 [facility] Comment on above: HDL CHOL ATP-III CLA SSIFICATION Cardiovascular RiskHDL > or equal to 60 mg/dL LOWHDL < 40 mg/dL HIGH Serum or plasma total choles terol/high density lipoprotein (HDL) cholesterol mass ratOrdered By: Joe Davis on 03-12-2023 Cholesterol.total/Judy sterol in HDL [Mass ratio] 3.1 {ratio} <5.0 [facility] Specific gravity Auto test s trip (U) [Rel density]Ordered By: Joe Davis on 03-12-2023 Specific gravity (U) [Rel density] 1.006 1.001-1.03 0 [facility] Squamous epithelial cells de tection in urine sediment by light microscopyOrdered By: Joe Davis on 03-12-2023 Epithelial cells.squamous LM Ql (Urine sed) 0-1 [HPF] 0-2 [facility] Thyrotropin [Units/volume] i n Serum or PlasmaOrdered By: Joe Davis on 03-12-2023 TSH Qn 0.91 m[IU]/L 0.45-5.33 [facility] Triglyceride [Mass/volume] i n Serum or PlasmaOrdered By: Joe Davis on 03-12-2023 Triglyceride [Mass/Vol] 76 mg/dL 0-149 [facility] Comment on above: TRIG ATP III CLASSIF ICATIONTRIG less than 150 mg/dL NormalTRIG 150-199 mg/dL Borderline highTRIG 200-500 mg/dL High TRIG greater than 500 mg/dL Very highStandard traceable to the Center for Disease Conrtrol and Prevention (CDC) test method. Urine bacteria detection by automated methodOrdered By: Joe Davis on 03-12-2023 Bacteria Auto Ql (U) None seen None Seen [facility] Urine clarity by refractomet ry automatedOrdered By: Joe Davis on 03-12-2023 Clarity Refractometry automated (U) Clear Clear [facility] Urine culture routineOrdered By: Joe Davis on 03-12-2023 Bacteria identified Cx Nom (U) bacilli - 2 Days [facility] Urine glucose measurement by automated test strip (mass/volume)Ordered By: Joe Davis on 03-12-2023 Glucose Auto test strip (U) [Mass/Vol] Normal mg/dL Normal [facility] Urine hemoglobin detection b y automated test stripOrdered By: Joe Davis on 03-12-2023 Hemoglobin Auto test strip Ql (U) Negative Negative [facility] Urine leukocyte esterase det ection by automated test stripOrdered By: Joe Davis on 03-12-2023 Leukocyte esterase Auto test strip Ql (U) 4+ Negative [facility] Urobilinogen Auto test strip (U) [Mass/Vol]Ordered By: Joe Davis on 03-12-2023 Urobilinogen (U) [Mass/Vol] Normal mg/dL Normal [facility] Vitamin D+Metabolites [Mass/ volume] in Serum or PlasmaOrdered By: Joe Davis on 03-12-2023 Vitamin D+Metabolites [Mass/Vol] 28.1 ng/mL 30-100 [facility] Comment on above: VITAMIN D STATUS 25( [place])VITAMIN D RANGE (ng/mL) Deficient <20 Insufficient 20 to <30Sufficient 30 to 100Reference: Lucio MF,Rneée NC, Francisco CARPIO, et al. Evaluation,treatment, and prevention of vitamin D deficiency; an Endocrine Society clinical practice guideline. JCEM. 2010; 96(7):1911-30. pH Auto test strip (U)Ordere d By: Joe Davis on 03-12-2023 pH (U) 7.0 [pH] 5.0-9.0 [facility] [place] [Moles/volume] in Se rum or PlasmaOrdered By: NON STAFF on 03-11-2023 [place] [Moles/Vol] 0.50 mmol/L 0.60-1.20 [facility] Cult,Genitalon 02-03-2023 Cult,Genital Specimen Description .VAGINA Culture ENTERIC TERRANCE PRESENT STREPTOCOCCI, BETA HEMOLYTIC GROUP B ISOLATED NORMAL URO-GENITAL TERRANCE LIGHT GROWTH NEGATIVE FOR NEISSERIA GONORRHOEAE Report Status FINAL 02/03/2023 [facility] Comment on above: Performed By: #### G EC #### [address] [address] Director Of Graduate Medical Education: Tej Locke MD [address] [place], [place] [id number] Director Of Graduate Medical Education: Emery Miller MD Vaginitis DNA Probeon 2022 Rosa Negative [facility] Comment on above: Result Comment: for Rosa sp. Method of testing is a DNA probe intended for detection and identification of Rosa species, Gardnerella vaginalis, and Trichomonas vaginalis nucleic acid in vaginal fluid specimens from patients with symptoms of vaginitis/vaginosis. Performed By: #### V AGP #### [address] [address] Director Of Graduate Medical Education: Tej Locke MD [address] [place], [place] [id number] Director Of Graduate Medical Education: Emery Miller MD Gardnerella Negative [facility] Comment on above: Result Comment: for Gardnerella vaginalis Performed By: #### V AGP #### [address] [address] Director Of Graduate Medical Education: Tej Locke MD [address] [place], [place] [id number] Director Of Graduate Medical Education: Emery Miller MD Trichomonas Negative [facility] Comment on above: Result Comment: for Trichomonas Vaginalis Performed By: #### V AGP #### [address] [address] Director Of Graduate Medical Education: Tej Locke MD [address] [place], [place] [id number] Director Of Graduate Medical Education: Emery Miller MD Vaginitis DNA Probeon 2022 Source .VAGINAL SWAB Normal [facility] Comment on above: Performed By: #### V AGP #### [facility] [address] [place] [address] Director Of Graduate Medical Education: Tej Locke MD [facility] [address] [place] [address] Director Of Graduate Medical Education: Emery Miller MD XR shoulder RT min 2V*on XR shoulder RT min 2V* [facility] [employer] Other XR shoulder RT min 2V* [facility] [employer] Other XR shoulder RT min 2V* [address] [place] [address] [employer] Other XR shoulder RT min 2V* [place] [address] [facility] Other XR shoulder RT min 2V* XRay Report N [facility] [employer] Other XR shoulder RT min 2V* Signed No rt [employer] Other XR shoulder RT min 2V* Patient: Mary Anne Almeida MR#: [id number] [facility] Other XR shoulder RT min 2V* 250 No rt [employer] Other XR shoulder RT min 2V* : 1955 Acct:[id number] [facility] Other XR shoulder RT min 2V* Age/Sex: 67 / F A DM Date: 12/12/22 [facility] Other XR shoulder RT min 2V* Loc: SOXD Room: T ype: [facility] Other XR shoulder RT min 2V* Attending Dr: Neftali Adame DO [facility] Other XR shoulder RT min 2V* Copies to: Emory Adame, DO [facility] Other XR shoulder RT min 2V* Ordering Provider : Emory Adame, [facility] Other XR shoulder RT min 2V* Date of Service: 12/12/22 [facility] Other XR shoulder RT min 2V* XR/XR shoulder RT min 2V*: Other closed displaced fracture of proximal [facility] Other XR shoulder RT min 2V* end of right hum [facility] Other XR shoulder RT min 2V* XR shoulder RT mi n 2V* 12/12/2022 1:42 PM [facility] Other XR shoulder RT min 2V* SIGNS AND SYMPTOM S: Status post right proximal humerus fracture, hardware fixation, follow-up [facility] Other XR shoulder RT min 2V* PROTOCOL: Frontal , Grashey, and scapular Y views of the right shoulder. [facility] Other XR shoulder RT min 2V* COMPARISON: 10/31/2022 [facility] Other XR shoulder RT min 2V* FINDINGS: No [employer] Other XR shoulder RT min 2V* There is hardware fixation of the right humeral head and proximal humeral shaft. There is no [facility] Other XR shoulder RT min 2V* hardware complica tion. There are bony fragments within the rotator interval which have migrated the [facility] Other XR shoulder RT min 2V* prior exam. The acromioclavicular joint and glenohumeral joint are preserved. The visualized right [facility] Other XR shoulder RT min 2V* hemithorax is la ssly intact. [facility] Other XR shoulder RT min 2V* 7 XR/XR shoulder RT min 2V* [facility] Other XR shoulder RT min 2V* IMPRESSION: N [employer] Other XR shoulder RT min 2V* hardware complication. [facility] Other XR shoulder RT min 2V* There are bony fr agments within the rotator interval which have migrated the prior exam. [facility] Other XR shoulder RT min 2V* Impression dictat ed by: Janis Jett M.D.12/12/2022 4:03 PM [facility] Other XR shoulder RT min 2V* Dictation Locatio n: RADIO-PC-12 [facility] Other XR shoulder RT min 2V* Transcribed By: Alpa DUVALL 12/12/22 1603 [facility] Other XR shoulder RT min 2V* Dictated By: Janis Jett II, MD 12/12/22 1600 [facility] Other XR shoulder RT min 2V* Signed By: No rt [employer] Other XR shoulder RT min 2V* 12/12/22 1603 [facility] Other XR shoulder RT min 2V*on XR shoulder RT min 2V* [facility] Other XR shoulder RT min 2V* [facility] [employer] [facility] Other XR shoulder RT min 2V* [address] [place] [address] [facility] Other XR shoulder RT min 2V* [place] [address] [facility] Other XR shoulder RT min 2V* XRay Report N [employer] Other XR shoulder RT min 2V* Signed No [employer] [facility] Other XR shoulder RT min 2V* Patient: Mary Anne Almedia MR#: [id number] [facility] Other XR shoulder RT min 2V* 250 No [employer] Other XR shoulder RT min 2V* : 1955 Acct:[id number] [facility] Other XR shoulder RT min 2V* Age/Sex: 67 / F A DM Date: 10/31/22 [facility] Other XR shoulder RT min 2V* Loc: SOX Room: T ype: [facility] Other XR shoulder RT min 2V* Attending Dr: Neftali Adame DO [facility] Other XR shoulder RT min 2V* Copies to: Emory Adame DO [facility] Other XR shoulder RT min 2V* Ordering Provider : Emory Adame DO [facility] Other XR shoulder RT min 2V* Date of Service: 10/31/22 [facility] Other XR shoulder RT min 2V* XR/XR shoulder RT min 2V*: Other closed displaced fracture of proximal [facility] Other XR shoulder RT min 2V* end of right hum [facility] Other XR shoulder RT min 2V* RIGHT SHOULDER - - 3 views [facility] Other XR shoulder RT min 2V* CLINICAL HISTORY: ORIF right humerus [facility] Other XR shoulder RT min 2V* COMPARISON: Right shoulder 10/03/2022 [facility] Other XR shoulder RT min 2V* FINDINGS: No [employer] Other XR shoulder RT min 2V* Hardware fixation is seen involving the right humeral neck without evidence of hardware [facility] Other XR shoulder RT min 2V* complication. Fragmentation versus callus formation is noted involving the greater tubercle [facility] Other XR shoulder RT min 2V* possibly represen ting healing response. [facility] Other XR shoulder RT min 2V* 1 XR/XR shoulder RT min 2V* [facility] Other XR shoulder RT min 2V* IMPRESSION: N [employer] Other XR shoulder RT min 2V* FRAGMENTATION PETER HARRY CALCIFIED FORMATION IS NOTED INVOLVING THE GREATER TUBERCLE POSSIBLY [facility] Other XR shoulder RT min 2V* REPRESENTING HEAL ING RESPONSE. FOLLOW-UP IS RECOMMENDED.. [facility] Other XR shoulder RT min 2V* Impression dictat ed by: Yandel Lees Jr., DLoreOLore10/31/2022 4:06 PM [facility] Other XR shoulder RT min 2V* Dictation Locatio n: RADIO-PC-08 [facility] Other XR shoulder RT min 2V* Transcribed By: Alpa DUVALL 10/31/22 [facility] Other XR shoulder RT min 2V* Dictated By: Isrrael Lees Jr, DO 10/31/22 [facility] Other XR shoulder RT min 2V* Signed By: No rt [employer] Other XR shoulder RT min 2V* 10/31/22 160 [facility] Other LITHIUMon 10-27-2022 [place] (Eskalith(R)), Serum 0.9 mmol/L Normal 0.5-1.2 [facility] Comment on above: Result Comment: A co ncentration of 0.5-0.8 mmol/L is advised for long-term use; concentrations of up to 1.2 mmol/L may be necessary during acute treatment. Detection Limit = 0.1 <0.1 indicates None Detected Performed By: #### L ITHIUM #### [facility] [address] [place] [address] Dr. Beny Johnson CREATININEon 10-26-2022 Creatinine [Mass/Vol] 1.43 mg/dL Critically high 0.55-1.02 [facility] Comment on above: Performed By: #### T JAGDISH, CREA #### [facility] [address] [address] [address] Beny Johnson EGFR-AF URUGUAYAN 45 mL/min/1.73m2 Critically low >=60 [facility] Comment on above: Performed By: #### T JAGDISH, CREA #### [facility] [address] [address] [address] Beny Johnson EGFR-NON AF URUGUAYAN 37 mL/min/1.73m2 Critically low >=60 [facility] Comment on above: Performed By: #### T JAGDISH, CREA #### [facility] [address] [place] [address] Dr. Beny Johnson TSHon 10-26-2022 TSH 1.213 uIU/mL Normal 0.358-3.74 0 [facility] Comment on above: Performed By: #### T JAGDISH, CREA #### [facility] [address] [place] [address] Dr. Beny Johnson Hematocrit Auto (Bld) [Volum e fraction]Ordered By: Emory Adame on 09-13-2022 Hematocrit (Bld) [Volume fraction] 36.3 % 34.0-46.4 [facility] Hemoglobin [Mass/volume] in BloodOrdered By: Emory Adame on 09-13-2022 Hemoglobin (Bld) [Mass/Vol] 11.6 g/dL 11.8-15.4 [facility] Basophils Auto (Bld) [#/Vol] Ordered By: Emory Adame on 09-11-2022 Basophils (Bld) [#/Vol] 0.1 10*3/uL 0.0-0.2 [facility] Basophils/100 WBC Auto (Bld) Ordered By: Emory Adame on 09-11-2022 Basophils/100 WBC (Bld) 0.9 % . F [facility] Calcium [Mass/volume] in Ser um or PlasmaOrdered By: Emory Adame on 09-11-2022 Calcium [Mass/Vol] 10.4 mg/dL 8.6-10.3 [facility] Carbon dioxide, total [Moles /volume] in Serum or PlasmaOrdered By: Emory Adame on 09-11-2022 CO2 [Moles/Vol] 22.2 mmol/L 21.0-31.0 [facility] Chloride [Moles/volume] in S kishan or PlasmaOrdered By: Emory Adame on 09-11-2022 Chloride [Moles/Vol] 113 mmol/L 98-107 [facility] Creatinine [Mass/volume] in Serum or PlasmaOrdered By: Emory Adame on 09-11-2022 Creatinine [Mass/Vol] 1.06 mg/dL 0.60-1.20 [facility] Eosinophils Auto (Bld) [#/Vo l]Ordered By: Emory Adame on 09-11-2022 Eosinophils (Bld) [#/Vol] 0.1 10*3/uL 0.0-0.45 [facility] Eosinophils/100 WBC Auto (Bl d)Ordered By: Emory Adame on 09-11-2022 Eosinophils/100 WBC (Bld) 1.8 % . [facility] Erythrocyte distribution wid th Auto (RBC) [Ratio]Ordered By: Emory Adame on 09-11-2022 Erythrocyte distribution width (RBC) [Ratio] 13.8 % 11.9-15.3 [facility] Glucose [Mass/volume] in Ser um or PlasmaOrdered By: Emory Adame on 09-11-2022 Glucose [Mass/Vol] 113 mg/dL 70-100 [facility] Comment on above: ADA recommended refe rence rangeRandom Glucose Reference Range is dependent on time and content of last meal. Glucose of more than 200 mg/dL in a nonstressed, ambulatory subject supports the diagnosis of Diabetes Mellitus. Hematocrit Auto (Bld) [Volum e fraction]Ordered By: Emory Adame on 09-11-2022 Hematocrit (Bld) [Volume fraction] 36.8 % 34.0-46.4 [facility] Hemoglobin [Mass/volume] in BloodOrdered By: Emory Adame on 09-11-2022 Hemoglobin (Bld) [Mass/Vol] 12.2 g/dL 11.8-15.4 [facility] Leukocytes [#/volume] correc cornelia for nucleated erythrocytes in Blood by Automated counOrdered By: Emory Adame on 09-11-2022 WBC corrected for nucl RBC Auto (Bld) [#/Vol] 5.9 10*3/uL 3.8-11.6 [facility] Lymphocytes Auto (Bld) [#/Vo l]Ordered By: Emory Adame on 09-11-2022 Lymphocytes (Bld) [#/Vol] 1.1 10*3/uL 1.00-4.8 [facility] Lymphocytes/100 WBC Auto (Bl d)Ordered By: Emory Adame on 09-11-2022 Lymphocytes/100 WBC (Bld) 19.4 % . [facility] MCH Auto (RBC) [Entitic mass ]Ordered By: Emory Adame on 09-11-2022 MCH (RBC) [Entitic mass] 31.8 pg 24.7-34.3 [facility] MCHC Auto (RBC) [Mass/Vol]Or dered By: Emory Adame on 09-11-2022 MCHC (RBC) [Mass/Vol] 33.2 g/dL 32.0-35.0 [facility] MCV Auto (RBC) [Entitic vol] Ordered By: Emory Adame on 09-11-2022 MCV (RBC) [Entitic vol] 95.7 fL 80-100 [facility] Monocytes Auto (Bld) [#/Vol] Ordered By: Emory Admae on 09-11-2022 Monocytes (Bld) [#/Vol] 0.5 10*3/uL 0.0-0.8 [facility] Monocytes/100 WBC Auto (Bld) Ordered By: Emory Adame on 09-11-2022 Monocytes/100 WBC (Bld) 8.0 % . F [facility] Neutrophils Auto (Bld) [#/Vo l]Ordered By: Emory Adame on 09-11-2022 Neutrophils (Bld) [#/Vol] 4.1 10*3/uL 1.8-7.7 [facility] Neutrophils/100 WBC Auto (Bl d)Ordered By: Emory Adame on 09-11-2022 Neutrophils/100 WBC (Bld) 69.9 % . [facility] No Panel InformationOrdered By: Emory Adame on 09-11-2022 Estimated GFR (CKD-EPI) 58.298 mL/Min [facility] Creatinine Clearance (Chem N/A [facility] Nucleated erythrocytes [Pres ence] in Blood by Automated countOrdered By: Emory Adame on 09-11-2022 Nucleated RBC Auto Ql (Bld) 0.1 /100{WBC} 0-0.5 [facility] Platelet mean volume Auto (B ld) [Entitic vol]Ordered By: Emory Adame on 09-11-2022 Platelet mean volume (Bld) [Entitic vol] 8.1 fL 6.3-10.7 [facility] Platelets Auto (Bld) [#/Vol] Ordered By: Emory Adame on 09-11-2022 Platelets (Bld) [#/Vol] 303 10*3/uL 150-450 [facility] Potassium [Moles/volume] in Serum or PlasmaOrdered By: Emory Adame on 09-11-2022 Potassium [Moles/Vol] 4.8 mmol/L 3.5-5.1 [facility] RBC Auto (Bld) [#/Vol]Ordere d By: Emory Adame on 09-11-2022 RBC (Bld) [#/Vol] 3.85 10*6/uL 3.60-5.00 [facility] Serum or plasma anion gap de terminationOrdered By: Emory Adame on 09-11-2022 Anion gap [Moles/Vol] 11.6 mmol/L 6.0-15.0 [facility] Sodium [Moles/volume] in Ser um or PlasmaOrdered By: Emory Adame on 09-11-2022 Sodium [Moles/Vol] 142 mmol/L 136-145 [facility] Urea nitrogen [Mass/volume] in Serum or PlasmaOrdered By: Emory Adame on 09-11-2022 Urea nitrogen [Mass/Vol] 24 mg/dL 7-25 [facility] WBC Auto (Bld) [#/Vol]Ordere d By: Emory Adame on 09-11-2022 WBC (Bld) [#/Vol] 5.9 10*3/uL 3.8-11.6 [facility] XR shoulder RT min 2V*on XR shoulder RT min 2V* [facility] [employer] Other XR shoulder RT min 2V* [facility] [employer] Other XR shoulder RT min 2V* [address] [place] [address] [employer] Other XR shoulder RT min 2V* [place] [address] [employer] Other XR shoulder RT min 2V* XRay Report N [facility] [employer] Other XR shoulder RT min 2V* Signed No rt [employer] Other XR shoulder RT min 2V* Patient: Mary Anne Almeida MR#: [id number] [employer] Other XR shoulder RT min 2V* [address] No rt [employer] Other XR shoulder RT min 2V* : 1955 Acct:[id number] [employer] Other XR shoulder RT min 2V* Age/Sex: 66 / F A DM Date: 09/10/22 [employer] Other XR shoulder RT min 2V* Loc: [facility]XD Room: T ype: REG CLI [employer] Other XR shoulder RT min 2V* Attending Dr: Neftali Adame DO [employer] Other XR shoulder RT min 2V* Copies to: Emory Adame [employer] Other XR shoulder RT min 2V* Ordering Provider : Emory Adame DO [employer] Other XR shoulder RT min 2V* Date of Service: 09/10/22 [employer] Other XR shoulder RT min 2V* XR/XR shoulder RT min 2V*: Acute pain of right shoulder [employer] Other XR shoulder RT min 2V* RIGHT SHOULDER - - 3 views [employer] Other XR shoulder RT min 2V* CLINICAL HISTORY: Proximal right humerus fracture continued pain. [employer] Other XR shoulder RT min 2V* COMPARISON: Right shoulder 09/06/2022 [employer] Other XR shoulder RT min 2V* FINDINGS: No [employer] Other XR shoulder RT min 2V* Greater tuberosit y fracture is once again demonstrated grossly unchanged in alignment when compared [employer] Other XR shoulder RT min 2V* to the prior stud y. Sclerosis is seen involving the fracture site suggestive of healing response. AC [employer] Other XR shoulder RT min 2V* joint appears intact. [employer] Other XR shoulder RT min 2V* 3 XR/XR shoulder RT min 2V* [employer] Other XR shoulder RT min 2V* IMPRESSION: N [employer] Other XR shoulder RT min 2V* SCLEROSIS IS SEEN AT THE GREATER TUBEROSITY FRACTURE SITE SUGGESTIVE OF HEALING RESPONSE. NO CHANGE [employer] Other XR shoulder RT min 2V* IN ALIGNMENT. [employer] Other XR shoulder RT min 2V* Impression dictat ed by: Yandel Lees Jr., D.OLore09/10/2022 12:18 PM [employer] Other XR shoulder RT min 2V* Dictation Locatio n: RADIO-PC-12 [employer] Other XR shoulder RT min 2V* Transcribed By: Alpa DUVALL 09/10/22 1218 [employer] Other XR shoulder RT min 2V* Dictated By: Isrrael Lees Jr, DO 09/10/22 1215 [employer] Other XR shoulder RT min 2V* Signed By: No rt [employer] Other XR shoulder RT min 2V* 09/10/22 1212 [employer] Other XR SHOULDER RT 1 Von 09-06- 023 XR SHOULDER RT 1 V EXAM: [...] HÉCTOR HO Date: 2022-09-06 15:02 Normal [facility] XR SHOULDER RT 1 V EXAM: XR [...] HÉCTOR HO Date: 2022-09-06 15:01 Normal [facility] XR SHOULDER RT 1 V EXAM: XR [...] HÉCTOR HO Date: 2022-09-06 15:00 Normal [facility] XR SHOULDER RT 1 V EXAM: XR SHOULDER RT 1 V HISTORY: Pain ; postreduction imaging COMPARISON: Prior shoulder x-rays from same date TECHNIQUE: FINDINGS: Humeral head is positioned inferior to the glenoid. Stable displaced fracture from the greater tuberosity. IMPRESSION: 1. Persistent anterior inferior glenohumeral dislocation and greater tuberosity fracture. Electronically authenticated by: HÉCTOR SINOZ Date: 2022-09-06 14:56 Normal [facility] XR SHOULDER RT 1 V EXAM: XR SHOULDER RT 1 V HISTORY: Pain ; post reduction attempt COMPARISON: XR shoulder right 09/06/2022 12:09 PM TECHNIQUE: FINDINGS: The humeral head remains anteriorly inferiorly dislocated from the glenoid fossa. Dislocated large bone fragment from the greater tuberosity. IMPRESSION: Stable appearance of right anterior inferior glenohumeral dislocation and greater tuberosity fracture. Electronically authenticated by: HÉCTOR SINOZ Date: 2022-09-06 14:55 Normal [facility] LITHIUMon 08-23-2022 [place] (Eskalith(R)), Serum 0.9 mmol/L Normal 0.5-1.2 [facility] Comment on above: Result Comment: A co ncentration of 0.5-0.8 mmol/L is advised for long-term use; concentrations of up to 1.2 mmol/L may be necessary during acute treatment. Detection Limit = 0.1 <0.1 indicates None Detected Performed By: #### L ITHIUM ####[facility] [address] [place] [address]Dr. Beny Alex CREATININEon 08-22-2022 Creatinine [Mass/Vol] 1.17 mg/dL Critically high 0.55-1.02 [facility] Comment on above: Performed By: #### C ELA ####[facility] [address] [place] [address]Dr. Beny Alex EGFR-AF URUGUAYAN 56 mL/min/1.73m2 Critically low >=60 [facility] Comment on above: Performed By: #### C ELA ####[facility] [address] [place] [address]Dr. Beny Alex EGFR-NON AF URUGUAYAN 46 mL/min/1.73m2 Critically low >=60 [facility] Comment on above: Performed By: #### C ELA ####[facility] [address] [place] [address]Dr. Beny Alex Herpes 1+2 Molecularon 08-17 HSV-1, NAAT Negative Normal NEG [facility] Comment on above: Result Comment: HSV- 1 DNA not detected by nucleic acid amplification Performed By: #### H SVDNA #### [address] [address] Director Of Graduate Medical Education: Tej Locke MD [facility] [address] [place] [address] Dr[address] [place], [place] [id number] Director Of Graduate Medical Education: Emery Miller MD HSV-2, NAAT Negative [facility] Comment on above: Result Comment: HSV- 2 DNA not detected by nucleic acid amplification Performed By: #### H SVDNA #### [address] [address] Director Of Graduate Medical Education: Tej Locke MD [facility] [address] [place] [address] Dr. [place], [place] [id number] Director Of Graduate Medical Education: Emery Miller MD Vaginitis DNA Probeon 2022 Rosa Negative [facility] Comment on above: Result Comment: for Rosa sp. Method of testing is a DNA probe intended for detection and identification of Rosa species, Gardnerella vaginalis, and Trichomonas vaginalis nucleic acid in vaginal fluid specimens from patients with symptoms of vaginitis/vaginosis. Performed By: #### V AGP #### [address] [address] Director Of Graduate Medical Education: Tej Locke MD [facility] [address] [place] [address] Dr. [place], [place] [id number] Director Of Graduate Medical Education: Emery Miller MD Gardnerella Negative [facility] Comment on above: Result Comment: for Gardnerella vaginalis Performed By: #### V AGP #### [address] [address] Director Of Graduate Medical Education: Tej Locke MD [facility] [address] [place] [address] Dr. [place], [place] [id number] Director Of Graduate Medical Education: Emery Miller MD Trichomonas Negative [facility] Comment on above: Result Comment: for Trichomonas Vaginalis Performed By: #### V AGP #### [address] [address] Director Of Graduate Medical Education: Tej Locke MD [facility] [address] [place] [address] [place] [address] Director Of Graduate Medical Education: Emery Miller MD Cytologyon 08-16-2022 Cytology (NOTE) INTERPRETATION Cervical material, (ThinPrep vial, Imaging-assisted review): Specimen Adequacy: Satisfactory for evaluation. Descriptive Diagnosis: Negative for intraepithelial lesion or malignancy. [employer] Manager: ROSY ARCHIBALD(ASCP) Electronically Signed Out /08/24/2022 Source: A: Cervical material, (ThinPrep vial, Imaging-assisted review) Clinical History Hysterectomy Z12.4 Encounter for screening for malignant neoplasm of cervix GYNECOLOGIC CYTOLOGY REPORT Patient Name: GAIL ALMEIDA [facility] Rec: [id number] Path Number: [id number] [facility] CONSULTING PATHOLOGISTS [facility] [address] [place] [address] [phone] [facility] Comment on above: Performed By: #### P PPVP #### [address] [address] Director Of Graduate Medical Education: Tej Locke MD Herpes 1+2 Molecularon 08-16 Source: .VULVA Normal [facility] Comment on above: Performed By: #### H SVDNA #### [address] [address] Director Of Graduate Medical Education: Tej Locke MD [facility] [address] [place] [address] [place] [address] Director Of Graduate Medical Education: Emery Miller MD Vaginitis DNA Probeon 2022 Source .VAGINAL SWAB Normal [facility] Comment on above: Performed By: #### V AGP #### [address] [id number] Director Of Graduate Medical Education: Tej Locke MD [facility] [address] [place] [address] Director Of Graduate Medical Education: Emery Miller MD LITHIUMon 08-04-2022 [place] (Eskalith(R)), Serum 1.1 mmol/L Normal 0.5-1.2 [facility] Comment on above: Result Comment: A co ncentration of 0.5-0.8 mmol/L is advised for long-term use; concentrations of up to 1.2 mmol/L may be necessary during acute treatment. Detection Limit = 0.1 <0.1 indicates None Detected Performed By: #### L ITHIUM ####[facility] [address] [place] [address]Dr. Beny Johnson CREATININEon 08-03-2022 Creatinine [Mass/Vol] 1.36 mg/dL Critically high 0.55-1.02 [facility] Comment on above: Performed By: #### Mikala MAHMOOD TSH ####[facility] [address] [place] [address]Dr. Beny Johnson EGFR-AF URUGUAYAN 47 mL/min/1.73m2 Critically low >=60 [facility] Comment on above: Performed By: #### Mikala MAHMOOD TSH ####[facility] [address] [place] [address]Dr. Beny Johnson EGFR-NON AF URUGUAYAN 39 mL/min/1.73m2 Critically low >=60 [facility] Comment on above: Performed By: #### Mikala MAHMOOD TSH ####[facility] [address] [place] [address]Dr. Beny Johnson TSHon 08-03-2022 TSH 0.901 uIU/mL Normal 0.358-3.74 0 [facility] Comment on above: Performed By: #### Mikala MAHMOOD, TSH ####[facility] [address] [place] [address]Dr. Beny Jhonson Outside Recordson 10-25-2021 Outside Records [id number]: 127 Normal [facility] Consent for Procedure/Surger yon 10-13-2021 Consent for Procedure/Surgery [id number] :127 Normal [facility] Creatinineon 08-01-2021 Creatinine [Mass/Vol] 0.98 mg/dL High 0.50 - 0.90 mg/dL [facility] GFR >60 >60 mL/min [facility] GFR Non- 57 mL/min Low >60 [facility] Interpretation and review of laboratory results Abnormal [facility] - Chemistry and C hemistry - challengeon 08-01-2021 GFR/1.73 sq M.predicted MDRD (S/P/Bld) [Vol rate/Area] [facility] Comment on above: Average GFR for 60-6 9 years old: 85 mL/min/1.73sq m Chronic Kidney Disease: <60 mL/min/1.73sq m Kidney failure: <15 mL/min/1.73sq m eGFR calculated using average adult body mass. Additional eGFR calculator available at: http://www.Go Dish/multiple_crcl_2012.htm Stage 1: Some kidney damage normal GFR [...] mammography is recommended. OVERALL ASSESSMENT - BENIGN MHPN RIS CONSOLIDATED EXAMINATION: MRI OF THE BILATERAL BREASTS [...] signal along the mediastinum is likely benign. PN RIS CONSOLIDATED Radiology Study observation (narrative) [employer] Work Phone: MRI BREAST BILATERAL W CONTR ASTOrdered By: Dee Soto on 08-01-2021 [employer] Phone: LINDA ERYN DIGITAL DIAGNOSTIC BILATERALOrdered By: She Spencer on 11-11-2020 1. No mammographic evidence of malignancy. BIRADS: BIRADS - CATEGORY 2 Benign Findings. Normal interval follow-up is recommended in 12 months. OVERALL ASSESSMENT - BENIGN A letter of notification will be sent to the patient regarding the results. [employer] recommends annual mammograms for women 40 years and older. [employer] Phone: EXAMINATION: DIAGNOS TIC DIGITAL BILATERAL BREASTS [...] dated June 08, 2020 is not visible. [employer] [place] Phone: [place], Mhpn Incoming Radiant Results From [employer] - 11/11/2020 10:09 PM EDT EXAMINATION: DIAGNOSTIC [...] to the patient regarding the results. [employer] recommends annual mammograms for women 40 years and older. [employer] [place] Phone: [employer] Phone: [place] Levelon 07-21-2020 [place] Date Last Dose NOT REPORTED [employer] Phone: [place] Dose Amount NOT REPORTED [employer] Phone: [place] Dose Time NOT REPORTED [employer] [place] Phone: [place] Lvl 0.9 mmol/L 0.6 - 1.2 mmol/L [employer] Phone: Lipid Panelon 07-18-2020 Cholesterol [Mass/Vol] 151 mg/dL <200 [employer] Phone: Comment on above: Cholesterol Guidelines: <200 Desirable 200-240 Borderline >240 Undesirable Cholesterol in HDL [Mass/Vol] 42 mg/dL >40 [facility]: Comment on above: HDL Guidelines: <40 Undesirable 40-59 Borderline >59 Desirable Cholesterol in LDL [Mass/Vol] 79 mg/dL 0 - 130 mg/dL [facility] Phone: Comment on above: LDL Guidelines: <100 Desirable 100-129 Near to/above Desirable 130-159 Borderline >159 Undesirable Direct (measured) LDL and calculated LDL are not interchangeable tests. Cholesterol in VLDL [Mass/Vol] NOT REPORTED 1 - 30 mg/dL [facility] Phone: Cholesterol.total/Judy sterol in HDL [Mass ratio] 3.6 {ratio} <5 [facility] Phone: Interpretation and review of laboratory results Abnormal [employer] Phone: Triglyceride [Mass/Vol] 151 mg/dL High <150 [facility] Phone: Comment on above: Triglyceride Guidelines: <150 Desirable 150-199 Borderline 200-499 High >499 Very high Based on AHA Guidelines for fasting triglyceride, March 2012. [place] Levelon 07-14-2020 Interpretation and review of laboratory results Abnormal [employer] [place] Phone: [place] Date Last Dose NOT REPORTED [facility] Phone: [place] Dose Amount NOT REPORTED [facility] [employer] Phone: [place] Dose Time NOT REPORTED [facility] Phone: [place] Lvl 1.6 mmol/L Critically high 0.6 - 1.2 mmol/L [facility] Phone: CBC Auto Differentialon Basophils (Bld) [#/Vol] 0.06 10*3/uL [employer] [place], [place] Basophils/100 WBC (Bld) 1 % 0 - 2 % [place], [place] Differential Type NOT REPORTED [place] Eosinophils (Bld) [#/Vol] 0.22 10*3/uL [place] Eosinophils/100 WBC (Bld) 4 % 1 - 4 % [place] Erythrocyte distribution width (RBC) [Ratio] 12.7 % 11.8 - 14.4 % [place] Hematocrit (Bld) [Volume fraction] 43.2 % 36.3 - 47.1 % [place] Hemoglobin (Bld) [Mass/Vol] 12.6 g/dL 11.9 - 15.1 g/dL [place] Immature granulocytes (Bld) [#/Vol] 10*3/uL [place] Immature granulocytes (Bld) [#/Vol] 0 % 0 [place] Interpretation and review of laboratory results Abnormal [place] Lymphocytes (Bld) [#/Vol] 1.92 10*3/uL [place] Lymphocytes/100 WBC (Bld) 36 % 24 - 43 % [place] MCH (RBC) [Entitic mass] 32.0 pg 25.2 - 33.5 pg [place] MCHC (RBC) [Mass/Vol] 29.2 g/dL 28.4 - 34.8 g/dL [place] MCV (RBC) [Entitic vol] 109.6 fL High 82.6 - 102.9 fL [place] Monocytes (Bld) [#/Vol] 0.46 10*3/uL [place] Monocytes/100 WBC (Bld) 9 % 3 - 12 % [place] Platelet mean volume (Bld) [Entitic vol] 11.5 fL 8.1 - 13.5 fL [place] Platelets (Bld) [#/Vol] 256 10*3/uL [place] Platelets (Bld) [#/Vol] NOT REPORTED [place] RBC (Bld) [#/Vol] 3.94 10*6/uL Low 3.95 - 5.11 m/uL [place] RBC morphology finding Nom (Bld) MACROCYTOSIS PRESENT [place] Segmented neutrophils/100 WBC (Bld) 50 % 36 - 65 % [place] Segs Absolute 2.66 [place] WBC (Bld) [#/Vol] 0.0 10*3/uL 0.0 per 100 WBC [place] WBC (Bld) [#/Vol] 5.3 10*3/uL [place] WBC Morphology NOT REPORTED [place], [place] Comprehensive Metabolic Pane eusebia 07-08-2020 Albumin [Mass/Vol] 4.3 g/dL 3.5 - 5.2 g/dL [place] Albumin/Globulin [Mass ratio] 1.5 {ratio} [place] ALP [Catalytic activity/Vol] 129 U/L High 35 - 104 U/L [place] ALT [Catalytic activity/Vol] 19 U/L 5 - 33 U/L [place] Anion gap [Moles/Vol] 10 mmol/L 9 - 17 mmol/L [place] AST [Catalytic activity/Vol] 18 U/L <32 [place] Bilirubin Ql (U) 0.21 mg/dL Low 0.3 - 1.2 mg/dL [place] Bun/Cre Ratio NOT REPORTED [place] Calcium [Mass/Vol] 10.9 mg/dL High 8.6 - 10. 4 mg/dL [place] Chloride [Moles/Vol] 108 mmol/L High 98 - 10 7 mmol/L [place] CO2 [Moles/Vol] 21 mmol/L 20 - 31 mmol/L [place] Creatinine [Mass/Vol] 1.29 mg/dL High 0.5 - 0.9 mg/dL [place] GFR 51 mL/min Low >60 [place] GFR Non- 42 mL/min Low >60 [place] GFR/1.73 sq M predicted among non-blacks MDRD (S/P/Bld) [Vol rate/Area] NOT REPORTED [place] GFR/1.73 sq M predicted among non-blacks MDRD (S/P/Bld) [Vol rate/Area] [place] Comment on above: Average GFR for 60-6 9 years old: 85 mL/min/1.73sq m Chronic Kidney Disease: <60 mL/min/1.73sq m Kidney failure: <15 mL/min/1.73sq m eGFR calculated using average adult body mass. Additional eGFR calculator available at: http://www.Go Dish/multiple_crcl_2012.htm Glucose [Mass/Vol] 88 mg/dL 70 - 99 mg/dL [place] Potassium [Moles/Vol] 3.9 mmol/L 3.7 - 5.3 mmol/L [place] Protein [Mass/Vol] 7.1 g/dL 6.4 - 8.3 g/dL [place] Sodium [Moles/Vol] 139 mmol/L 135 - 144 mmol/L [place] Urea nitrogen [Mass/Vol] 15 mg/dL 8 - 23 mg/dL [place] Laboratory - Chemistry and C hemistry - challengeOrdered By: Karla Clark on 07-08-2020 Albumin [Mass/Vol] 4.3 g/dL (3.5-5.2 ) [facility] Work Phone: Comment on above: Note: Responsible Ob client server programmer: [employer] ([id number]) ALT [Catalytic activity/Vol] 19 U/L (5-33 ) [facility] Work Phone: Comment on above: Note: Responsible Ob client server programmer: [employer] ([id number]) Anion gap [Moles/Vol] 10 mmol/L (9-17 ) [facility] Work Phone: Comment on above: Note: Responsible Ob client server programmer: [employer] ([id number]) AST [Catalytic activity/Vol] 18 U/L (<32 ) [facility] Work Phone: Comment on above: Note: Responsible Ob client server programmer: [employer] ([id number]) Bilirubin [Mass/Vol] 0.21 mg/dL Low (0.3-1.2 ) [facility] Work Phone: Comment on above: Note: Responsible Ob client server programmer: [employer] ([id number]) Calcium [Mass/Vol] 10.9 mg/dL High (8.6-10.4 ) [facility] Work Phone: Comment on above: Note: Responsible Ob client server programmer: [employer] ([id number]) Chloride [Moles/Vol] 108 mmol/L High (98-107 ) [facility] Work Phone: Comment on above: Note: Responsible Ob client server programmer: [employer] ([id number]) Cholesterol [Mass/Vol] 136 mg/dL (<200 ) [facility] Work Phone: Comment on above: Note: Cholesterol Gu idelines:<200 [id number] Borderline>240 UndesirableResponsible Observer: [employer] ([id number]) Cholesterol.total/Judy sterol in HDL [Mass ratio] 3.0 {ratio} (<5 ) [facility] Work Phone: Comment on above: Note: Responsible Ob client server programmer: [employer] ([id number]) CO2 [Moles/Vol] 21 mmol/L (20-31 ) [facility] Work Phone: Comment on above: Note: Responsible Ob client server programmer: [employer] ([id number]) Creatinine [Mass/Vol] 1.29 mg/dL High (0.50- 0.90 ) [facility] Work Phone: Comment on above: Note: Responsible Ob client server programmer: CCEV AUTOFILE ([id number]) Glucose [Mass/Vol] 88 mg/dL (70-99 ) [facility] Work Phone: Comment on above: Note: Responsible Ob client server programmer: CCEV AUTOFILE ([id number]) Magnesium [Mass/Vol] 46 mg/dL (>40 ) [facility] Work Phone: Comment on above: Note: HDL Guidelines :<40 [id number] Borderline>59 DesirableResponsible Observer: CCEV AUTOFILE ([id number]) Magnesium [Mass/Vol] 58 mg/dL (0-130 ) [facility] Work Phone: Comment on above: Note: LDL Guidelines :<100 [id number] Near to/above [id number] Borderline>159 UndesirableDirect (measured) LDL and calculated LDL are not interchangeable tests.Responsible Observer: CCEV AUTOFILE ([id number]) Magnesium [Mass/Vol] 162 mg/dL High (<150 ) [facility] Work Phone: Comment on above: Note: Triglyceride G uidelines:<150 [id number] High>499 Very highBased on AHA Guidelines for fasting triglyceride, March 2012.Responsible Observer: CCEV AUTOFILE ([id number]) Potassium [Moles/Vol] 3.9 mmol/L (3.7-5.3 ) [facility] Work Phone: Comment on above: Note: Responsible Ob client server programmer: CCEV AUTOFILE ([id number]) Protein [Mass/Vol] 7.1 g/dL (6.4-8.3 ) [facility] Work Phone: Comment on above: Note: Responsible Ob client server programmer: CCEV AUTOFILE ([id number]) Sodium [Moles/Vol] 139 mmol/L (135-144 ) [facility] Work Phone: Comment on above: Note: Responsible Ob client server programmer: CCEV AUTOFILE ([id number]) Urea nitrogen [Mass/Vol] 15 mg/dL (8-23 ) [facility] Work Phone: Comment on above: Note: Responsible Ob client server programmer: CCEV AUTOFILE ([id number]) Laboratory - Hematology and Cell countsOrdered By: Karla Clark on 07-08-2020 Basophils/100 WBC (Bld) 1 % (0-2 ) [facility] Work Phone: Comment on above: Note: Responsible Ob client server programmer: XNV AUTOFILE ([id number]) Eosinophils (Bld) [#/Vol] 0.22 10*3/uL (0.00-0.44 ) [facility] Work Phone: Comment on above: Note: Responsible Ob client server programmer: XNV AUTOFILE ([id number]) Eosinophils/100 WBC (Bld) 4 % (1-4 ) [facility] Work Phone: Comment on above: Note: Responsible Ob client server programmer: XNV AUTOFILE ([id number]) Erythrocyte distribution width (RBC) [Ratio] 12.7 % (11.8-14.4 ) [facility] Work Phone: Comment on above: Note: Responsible Ob client server programmer: XNV AUTOFILE ([id number]) Hematocrit (Bld) [Volume fraction] 43.2 % (36.3-47.1 ) [facility] Work Phone: Comment on above: Note: Responsible Ob client server programmer: XNV AUTOFILE ([id number]) Hemoglobin (Bld) [Mass/Vol] 12.6 g/dL (11.9-15.1 ) [facility] Work Phone: Comment on above: Note: Responsible Ob client server programmer: XNV AUTOFILE ([id number]) Immature granulocytes/100 WBC (Bld) 0 % (0 ) [facility] Work Phone: Comment on above: Note: Responsible Ob client server programmer: XNV AUTOFILE ([id number]) Lymphocytes (Bld) [#/Vol] 1.92 10*3/uL (1.10-3.70 ) [facility] Work Phone: Comment on above: Note: Responsible Ob client server programmer: XNV AUTOFILE ([id number]) Lymphocytes/100 WBC (Bld) 36 % (24-43 ) [facility] Work Phone: Comment on above: Note: Responsible Ob client server programmer: XNV AUTOFILE ([id number]) MCH (RBC) [Entitic mass] 32.0 pg (25.2-33.5 ) [facility] Work Phone: Comment on above: Note: Responsible Ob client server programmer: XNV AUTOFILE ([id number]) MCHC (RBC) [Mass/Vol] 29.2 g/dL (28.4- 34.8 ) [facility] Work Phone: Comment on above: Note: Responsible Ob client server programmer: XNV AUTOFILE ([id number]) MCV (RBC) [Entitic vol] 109.6 fL High (82. 6-102. 9 ) [facility] Work Phone: Comment on above: Note: Responsible Ob client server programmer: XNV AUTOFILE ([id number]) Monocytes (Bld) [#/Vol] 0.46 10*3/uL (0.1 0-1.20 ) [facility] Work Phone: Comment on above: Note: Responsible Ob client server programmer: XNV AUTOFILE ([id number]) Monocytes/100 WBC (Bld) 9 % (3-12 ) [facility] Comment on above: Note: Responsible Ob client server programmer: XNV AUTOFILE ([id number]) Platelet mean volume (Bld) [Entitic vol] 11.5 fL (8.1-13.5 ) [facility] Work Phone: Comment on above: Note: Responsible Ob client server programmer: XNV AUTOFILE ([id number]) Platelets (Bld) [#/Vol] 256 10*3/uL (138-453 ) [facility] Work Phone: Comment on above: Note: Responsible Ob client server programmer: XNV AUTOFILE ([id number]) RBC (Bld) [#/Vol] 3.94 10*6/uL Low (3.95-5.11 ) [facility] Work Phone: Comment on above: Note: Responsible Ob client server programmer: XNV AUTOFILE ([id number]) RBC morphology finding Nom (Bld) MACROCYTOSIS PRESENT [facility] Work Phone: Comment on above: Note: Responsible Ob client server programmer: XNV AUTOFILE ([id number]) Segmented neutrophils/100 WBC (Bld) 50 % (36-65 ) [facility] Work Phone: Comment on above: Note: Responsible Ob client server programmer: XNV AUTOFILE ([id number]) WBC (Bld) [#/Vol] 5.3 10*3/uL (3.5-11.3 ) [facility] Work Phone: Comment on above: Note: Responsible Ob client server programmer: XNV AUTOFILE ([id number]) Laboratory - Microbiology an d Antimicrobial susceptibilityOrdered By: Karla Clark on 07-08-2020 Bacteria identified Cx Nom (Unsp spec) NOT REPORTED (NONE ) [facility] Work Phone: Laboratory - Specimen inform ationOrdered By: Karla Clark on 07-08-2020 Color (U) YELLOW (YEL ) [facility] Work Phone: Comment on above: Note: Responsible Ob client server programmer: LETY MARTÍNEZ ([phone]) Laboratory - UrinalysisOrder ed By: Karla Clark on 07-08-2020 Amorphous sediment LM Ql (Urine sed) NOT REPORTED (NONE ) [facility] Work Phone: Crystals LM Nom (Urine sed) NOT REPORTED /HPF (NONE ) [facility] Work Phone: Epithelial cells LM Ql (Urine sed) 0 TO 2 /HPF (0-5 ) [facility] Work Phone: Comment on above: Note: Responsible Ob client server programmer: LETY MARTÍNEZ ([id number]) Yeast LM Ql (Urine sed) NOT REPORTED (NONE ) [facility] Work Phone: Lipid, Fastingon 07-08-2020 Cholesterol [Mass/Vol] 136 mg/dL <200 [facility], [place] Comment on above: Cholesterol Guidelines: <200 Desirable 200-240 Borderline >240 Undesirable Cholesterol in HDL [Mass/Vol] 46 mg/dL >40 [facility] [place] Comment on above: HDL Guidelines: <40 Undesirable 40-59 Borderline >59 Desirable Cholesterol in LDL [Mass/Vol] 58 mg/dL 0 - 130 mg/dL [place] Comment on above: LDL Guidelines: <100 Desirable 100-129 Near to/above Desirable 130-159 Borderline >159 Undesirable Direct (measured) LDL and calculated LDL are not interchangeable tests. Cholesterol in VLDL [Mass/Vol] NOT REPORTED High 1 - 30 mg/dL [place] Cholesterol.total/Judy sterol in HDL [Mass ratio] 3 {ratio} <5 [place] Triglyceride, Fasting 162 mg/dL High <150 [place] Comment on above: Triglyceride Guidelines: <150 Desirable 150-199 Borderline 200-499 High >499 Very high Based on AHA Guidelines for fasting triglyceride, March 2012. Microscopic Urinalysison Amorphous, UA NOT REPORTED None [place], [place] Bacteria, UA NOT REPORTED None [place] Casts UA NOT REPORTED [place] Crystals, UA NOT REPORTED None /HPF [place] Epithelial Cells UA 0 TO 2 [place] Mucus, UA NOT REPORTED None [place] Other Observations UA NOT REPORTED NOT REQ. [place] RBC (U) [#/Vol] None [place], [place] Comment on above: Reference range defi aggie for non-centrifuged specimen. Renal Epithelial, UA NOT REPORTED 0 /HPF [place] Trichomonas, UA NOT REPORTED None [place] WBC, UA 0 TO 2 [place] Yeast, UA NOT REPORTED None [place] - [place] No Panel InformationOrdered By: Karla Clark on 07-08-2020 (cont.) See Note [facility] Work Phone: Comment on above: Note: Average GFR fo r 60-69 years old:85 mL/min/1.73sq mChronic Kidney Disease:<60 mL/min/1.73sq mKidney failure:<15 mL/min/1.73sq meGFR calculated using average adult body mass. Additional eGFR calculatoravailable at:http://www.Horsealot.com/multiple_crcl_2012.htmResponsible Observer: CCEV AUTOFILE ([id number]) ----- See Note [facility] Work Phone: Comment on above: Note: Responsible Ob client server programmer: LETY MARTÍNEZ ([phone]) Abs. Basophil 0.06 k/uL (0.00-0.20 ) [facility] Work Phone: Comment on above: Note: Responsible Ob client server programmer: XNV AUTOFILE ([id number]) Abs.Imm.Granulocyte <0.03 k/uL (0.00-0. 30 ) [facility] Work Phone: Comment on above: Note: Responsible Ob client server programmer: XNV AUTOFILE ([id number]) Abs.Neutrophil (Seg) 2.66 k/uL (1.50-8 .10 ) [facility] Work Phone: Comment on above: Note: Responsible Ob client server programmer: XNV AUTOFILE ([id number]) Acetoacetic Acid,Ur Negative (NEG ) [facility] Work Phone: Comment on above: Note: Responsible Ob client server programmer: LETY MARTÍNEZ ([phone]) Albumin/Glob Ratio 1.5 (1.0-2.5 ) [facility] Work Phone: Comment on above: Note: Responsible Ob client server programmer: CCEV AUTOFILE ([id number]) Alkaline Phos 129 U/L High (35-104 ) [facility] Work Phone: Comment on above: Note: Responsible Ob client server programmer: CCEV AUTOFILE ([id number]) Auto Diff Performed NOT REPORTED [facility] Work Phone: Bilirubin, SemiQt,Ur Negative (NEG ) [facility] Work Phone: Comment on above: Note: Responsible Ob client server programmer: LETY MARTÍNEZ ([phone]) BUN/CRE Ratio NOT REPORTED (9-20 ) [facility] Work Phone: Casts NOT REPORTED /LPF (0-8 ) [facility] Work Phone: Cholesterol,VLDL NOT REPORTED mg/dL (1-30 ) [facility] Work Phone: Comment NOT REPORTED [facility] Work Phone: Epithelial, Renal NOT REPORTED /HPF (0 ) [facility] Work Phone: GFR, Amer 51 mL/min Low (>60 ) [facility] Work Phone: Comment on above: Note: Responsible Ob client server programmer: CCEV AUTOFILE ([id number]) GFR,non Amer 42 mL/min Low (>60 ) [facility] Work Phone: Comment on above: Note: Responsible Ob client server programmer: CCEV AUTOFILE ([id number]) Glucose,Semi-qnt,Ur Negative (NEG ) [facility] Work Phone: Comment on above: Note: Responsible Ob client server programmer: LETY MARTÍNEZ ([phone]) Hemoglobin, Ur Negative (NEG ) [facility] Work Phone: Comment on above: Note: Responsible Ob client server programmer: LETY MARTÍNEZ (991) Leuckocyte Esterase SMALL Abnormal (NEG ) [facility] Work Phone: Comment on above: Note: Responsible Ob client server programmer: LETY MARTÍNEZ ([phone]) Mucus Strands NOT REPORTED (NONE ) [facility] Work Phone: Nitrite,Ur Negative (NEG ) [facility] Work Phone: Comment on above: Note: Responsible Ob client server programmer: LETY MARTÍNEZ (812) NRBC Automated 0.0 per_100_WBC (0.0 ) [facility] Work Phone: Comment on above: Note: Responsible Ob client server programmer: XNV AUTOFILE ([id number]) Other Observations NOT REPORTED (NREQ ) [facility] Work Phone: Performing Lab: see note [facility] Work Phone: Comment on above: Note: MICHELLE Emily Kinney [address] [facility] [address] PH,Ur 7.5 (5.0-8.0 ) [facility] Work Phone: Comment on above: Note: Responsible Ob client server programmer: LETY MARTÍNEZ (609) Platelet Estimate NOT REPORTED [facility] Work Phone: Protein, Semi-qnt,Ur Negative (NEG ) [facility] Work Phone: Comment on above: Note: Responsible Ob client server programmer: LETY MARTÍNEZ (603) Reported Physicians See Note [facility] Work Phone: Comment on above: Note: Reported Physi cians:Ordering: Cotton, AimeeAttending: Cotton, AimeeReferring: Cotton, Karla Spec. [place],Ur 1.006 (1.005-1.0 30 ) [facility] Work Phone: Comment on above: Note: Responsible Ob client server programmer: LETY MARTÍNEZ ([id number]) Staging: NOT REPORTED [facility] Work Phone: Trichomonas NOT REPORTED (NONE ) [facility] Work Phone: Turbidity CLEAR (CLEAR ) [facility] Work Phone: Comment on above: Note: Responsible Ob client server programmer: LETY MARTÍNEZ ([phone]) Urine RBC's None /HPF (0-4 ) [facility] Work Phone: Comment on above: Note: Reference rang e defined for non-centrifuged specimen.Responsible Observer: LETY MARTÍNEZ ([id number]) Urine WBC's 0 TO 2 /HPF (0-5 ) [facility] Work Phone: Comment on above: Note: Responsible Ob client server programmer: LETY MARTÍNEZ ([id number]) Urobilinogen,Ur Normal (NORM ) [facility] Work Phone: Comment on above: Note: Responsible Ob client server programmer: LETY MARTÍNEZ ([id number]) WBC Morphology NOT REPORTED [facility] Work Phone: Otheron 07-08-2020 Interpretation and review of laboratory results Abnormal [place] Urinalysis Reflex to Culture on 07-08-2020 Bilirubin Urine Negative NEGATIVE [place] Color, UA YELLOW YELLOW [place] Glucose, Ur Negative NEGATIVE [place] Interpretation and review of laboratory results Abnormal [place] Ketones Ql (U) Negative NEGATIVE [place] Leukocyte esterase Test strip Ql (U) SMALL Abnormal NEGATIVE [place] Nitrite, Urine Negative NEGATIVE [place] pH, UA 7.5 [place] Protein (U) [Mass/Vol] Negative NEGATIVE [place] Specific [place], UA 1.006 [place], [place] Turbidity UA CLEAR CLEAR [place] Urinalysis Comments NOT REPORTED [place] Urine Hgb Negative NEGATIVE [place] Urobilinogen, Urine Normal Normal [place] BUNon 06-30-2020 Urea nitrogen [Mass/Vol] 17 mg/dL 8 - 23 mg/dL [place] Creatinine, Serumon 06-30-19 21 Creatinine [Mass/Vol] 1.26 mg/dL High 0.5 - 0.9 mg/dL [place] GFR 52 mL/min Low >60 [place] GFR Non- 43 mL/min Low >60 [place] Interpretation and review of laboratory results Abnormal [place] Laboratory - Chemistry and C hemistry - challengeOrdered By: Karla Clark on 06-30-2020 Creatinine [Mass/Vol] 1.26 mg/dL High (0.50- 0.90 ) [facility] Work Phone: Comment on above: Note: Responsible Ob client server programmer: CET ONE AUTOFILE ([id number]) Urea nitrogen [Mass/Vol] 17 mg/dL (8-23 ) [facility] Work Phone: Comment on above: Note: Responsible Ob client server programmer: CET ONE AUTOFILE ([id number]) Laboratory - Microbiology an d Antimicrobial susceptibilityOrdered By: Karla Clark on 06-30-2020 SARS-CoV-2 (COVID-19) RNA MARCIO+probe Ql (Resp) Not detected (Not Detected ) [facility] Work Phone: Comment on above: Note: This [...] of in vitro diagnostic tests for detection [id number] virus and/or diagnosis of COVID-19 infectionunder section [...] Unremarkable exam. N o significant pituitary mass. [facility] [place] EXAMINATION: MRI OF THE BRAIN WITHOUT [...] The soft tissues demonstrate no acute abnormality. [place], [place], Mhpn Incoming Radiant Results From Viki - 06/30/2020 4:29 PM EST EXAMINATION: MRI [...] IMPRESSION: Unremarkable exam. No significant pituitary mass. [place] Metabolic Panelon 06-30-2020 GFR/1.73 sq M predicted among non-blacks MDRD (S/P/Bld) [Vol rate/Area] [place] Comment on above: Average GFR for 60-6 9 years old: 85 mL/min/1.73sq m Chronic Kidney Disease: <60 mL/min/1.73sq m Kidney failure: <15 mL/min/1.73sq m eGFR calculated using average adult body mass. Additional eGFR calculator available at: http://www.Horsealot.[employer]/multiple_crcl_2012.htm Stage 1: Some kidney damage normal GFR Stage 2: Mild kidney damage GFR 60-89 Stage 3: Moderate kidney damage GFR 30-59 Stage 4: Severe kidney damage GFR 15-29 Stage 5: Severe kidney damage GFR <15 ESRD - chronic treatment by dialysis or transplant No Panel InformationOrdered By: Karla Clark on 06-30-2020 (cont.) See Note [facility] Work Phone: Comment on above: Note: Average GFR fo r 60-69 years old:85 mL/min/1.73sq mChronic Kidney Disease:<60 mL/min/1.73sq mKidney failure:<15 mL/min/1.73sq meGFR calculated using average adult body mass. Additional eGFR calculatoravailable at:http://www.Horsealot.[employer]/multiple_crcl_2012.htmResponsible Observer: CET ONE AUTOFILE ([id number]) GFR, Amer 52 mL/min Low (>60 ) [facility] Work Phone: Comment on above: Note: Responsible Ob client server programmer: CET ONE AUTOFILE ([id number]) GFR,non Amer 43 mL/min Low (>60 ) [facility] Work Phone: Comment on above: Note: Responsible Ob client server programmer: CET ONE AUTOFILE ([id number]) Performing Lab: see note [facility] Work Phone: Comment on above: Note: [facility] [address] [place] [address] [place] [address] Reported Physicians See Note [facility] Work Phone: Comment on above: Note: Reported Physi cians:Ordering: Cotton, AimeeAttending: Cotton, AimeeReferring: Cotton, Karla Staging: See Note [facility] Work Phone: Comment on above: Note: Stage [...] AND MALIGNANCY. Joby Paredes, Electronically Signed Out 06/09/2020 Clinical Information Pre-op Diagnosis: LEFT BREAST MASS [...] SURGICAL PATHOLOGY CONSULTATION Patient Name: GAIL ALMEIDA [facility] Rec: [id number] Path Number: [id number] [facility] [employer] [facility] ANATOMIC PATHOLOGY [address] [place] [id number] [place] Otheron 06-08-2020 Addendum by Del Ross [...] Return to yearly screening schedule is recommended. [place] Technically successf ul ultrasound guided core biopsy of subtle sonographic abnormality in the posterior 4 o'clock left breast near the chest wall and coil shapedclip marker placement as described above. BIRADS: ZW - Pathology pending. [place] EXAMINATION: ULTRASOUND-GUIDED LEFT BREAST BIOPSY WITH [...] placement imaging performed in a separate room. [facility] [place], [place], pn Incoming Radiant Results From [facility]Lyfe/Peek - 06/08/2020 11:19 AM EST EXAMINATION: ULTRASOUND-GUIDED [...] described above. BIRADS: ZW - Pathology pending. [place] Prolactinon 06-06-2020 Interpretation and review of laboratory results Abnormal [place] Prolactin 223 ug/L High 4.79 - 23.3 ug/L [place] Comment on above: The presence of [...] patient at the time of service. A hr representative from the radiology department will be contacting your office and assisting the patient in getting appropriate follow-up. [place] EXAMINATION: DIAGNOS TIC DIGITAL BILATERAL BREASTS [...] tissue sampling of this location is advised. [facility] [place], [place], Mhpn Incoming Radiant Results From [facility]fe[facility]ek - 04/04/2020 5:42 PM EST EXAMINATION: DIAGNOSTIC [...] patient at the time of service. A hr representative from the radiology department will be contacting your office and assisting the patient in getting appropriate follow-up. [place] BUNon 03-31-2020 Urea nitrogen [Mass/Vol] 21 mg/dL 8 - 23 mg/dL [place] Creatinine, Serumon 03-31-20 20 Creatinine [Mass/Vol] 1.1 mg/dL High 0.5 - 0.9 mg/dL [place] GFR >60 >60 mL/min [place] GFR Non- 50 mL/min Low >60 [place] GFR/1.73 sq M predicted among non-blacks MDRD (S/P/Bld) [Vol rate/Area] [place] Comment on above: Average GFR for 60-6 9 years old: 85 mL/min/1.73sq m Chronic Kidney Disease: <60 mL/min/1.73sq m Kidney failure: <15 mL/min/1.73sq m eGFR calculated using average adult body mass. Additional eGFR calculator available at: http://www.Go Dish/multiple_crcl_2012.htm GFR/1.73 sq M predicted among non-blacks MDRD (S/P/Bld) [Vol rate/Area] NOT REPORTED [place] Interpretation and review of laboratory results Abnormal [place] Metabolic Panelon 03-31-2020 Creatinine [Mass/Vol] 1.10 mg/dL High (0.50- 0.90 ) [facility] Work Phone: Comment on above: Note: Responsible Ob client server programmer: CEEV AUTOFILE ([id number]) Urea nitrogen [Mass/Vol] 21 mg/dL (8-23) [facility] Work Phone: Comment on above: Note: Responsible Ob client server programmer: CEEV AUTOFILE ([id number]) Otheron 03-31-2020 (cont.) See Note [facility] Work Phone: Comment on above: Note: Average GFR fo r 60-69 years old:85 mL/min/1.73sq mChronic Kidney Disease:<60 mL/min/1.73sq mKidney failure:<15 mL/min/1.73sq meGFR calculated using average adult body mass. Additional eGFR calculatoravailable at:http://www.Horsealot.com/multiple_crcl_2012.htmResponsible Observer: CEEV AUTOFILE ([id number]) GFR, Amer >60 mL/min (>60) [facility] Work Phone: Comment on above: Note: Responsible Ob client server programmer: CEEV AUTOFILE ([id number]) GFR,non Amer 50 mL/min Low (>60) [facility] Work Phone: Comment on above: Note: Responsible Ob client server programmer: CEEV AUTOFILE ([id number]) Performing Lab: see note [facility] Work Phone: Comment on above: Note: MICHELLE [facility] [address] [facility] [address] Reported Physicians See Note [facility] Work Phone: Comment on above: Note: Reported Physi cians:Ordering: Cotton, AimeeAttending: Cotton, AimeeReferring: Cotton, Karla Staging: NOT REPORTED [facility] Work Phone: CBC Auto Differentialon 10-0 Basophils (Bld) [#/Vol] 0.06 10*3/uL [place] Basophils/100 WBC (Bld) 1 % 0 - 2 % [place] Differential Type NOT REPORTED [place] Eosinophils (Bld) [#/Vol] 0.15 10*3/uL [place] Eosinophils/100 WBC (Bld) 3 % 1 - 4 % [place] Erythrocyte distribution width (RBC) [Ratio] 13.2 % 11.8 - 14.4 % [place] Hematocrit (Bld) [Volume fraction] 42.7 % 36.3 - 47.1 % [place] Hemoglobin (Bld) [Mass/Vol] 12.6 g/dL 11.9 - 15.1 g/dL [place] Immature granulocytes (Bld) [#/Vol] 0 % 0 [place] Immature granulocytes (Bld) [#/Vol] 10*3/uL [place] Interpretation and review of laboratory results Abnormal [place] Lymphocytes (Bld) [#/Vol] 1.57 10*3/uL [place] Lymphocytes/100 WBC (Bld) 29 % 24 - 43 % [place] MCH (RBC) [Entitic mass] 32.1 pg 25.2 - 33.5 pg [place] MCHC (RBC) [Mass/Vol] 29.5 g/dL 28.4 - 34.8 g/dL [place] MCV (RBC) [Entitic vol] 108.7 fL High 82.6 - 102.9 fL [place] Monocytes (Bld) [#/Vol] 0.45 10*3/uL [place] Monocytes/100 WBC (Bld) 8 % 3 - 12 % [place] Platelet mean volume (Bld) [Entitic vol] 11.1 fL 8.1 - 13.5 fL [place] Platelets (Bld) [#/Vol] NOT REPORTED [place] Platelets (Bld) [#/Vol] 259 10*3/uL [place] RBC (Bld) [#/Vol] 3.93 10*6/uL Low 3.95 - 5.11 m/uL [place] RBC morphology finding Nom (Bld) MACROCYTOSIS PRESENT [place] Segmented neutrophils/100 WBC (Bld) 59 % 36 - 65 % [place] Segs Absolute 3.12 [place] WBC (Bld) [#/Vol] 5.4 10*3/uL [place] WBC (Bld) [#/Vol] 0.0 10*3/uL 0.0 per 100 WBC [place] WBC Morphology NOT REPORTED [place] [facility] 03-10-2020 Cholesterol [Mass/Vol] 139 mg/dL (<200) [facility] Work Phone: Comment on above: Note: Cholesterol Gu idelines:<200 [id number] Borderline>240 UndesirableResponsible Observer: CCEV AUTOFILE ([id number]) Comprehensive Metabolic Pane eusebia 03-10-2020 Albumin [Mass/Vol] 4.3 g/dL 3.5 - 5.2 g/dL [place] Albumin/Globulin [Mass ratio] 1.9 {ratio} [place] ALP [Catalytic activity/Vol] 136 U/L High 35 - 104 U/L [place] ALT [Catalytic activity/Vol] 50 U/L High 5 - 33 U/L [place] Anion gap [Moles/Vol] 12 mmol/L 9 - 17 mmol/L [place] AST [Catalytic activity/Vol] 28 U/L <32 [place] Bilirubin Ql (U) 0.18 mg/dL Low 0.3 - 1.2 mg/dL [place] Bun/Cre Ratio NOT REPORTED [place] Calcium [Mass/Vol] 10.7 mg/dL High 8.6 - 10. 4 mg/dL [place] Chloride [Moles/Vol] 109 mmol/L High 98 - 10 7 mmol/L [place] CO2 [Moles/Vol] 19 mmol/L Low 20 - 31 mmol/L [place] Creatinine [Mass/Vol] 1.13 mg/dL High 0.5 - 0.9 mg/dL [place] GFR 59 mL/min Low >60 [place] GFR Non- 49 mL/min Low >60 [place] GFR/1.73 sq M predicted among non-blacks MDRD (S/P/Bld) [Vol rate/Area] [place] Comment on above: Average GFR for 60-6 9 years old: 85 mL/min/1.73sq m Chronic Kidney Disease: <60 mL/min/1.73sq m Kidney failure: <15 mL/min/1.73sq m eGFR calculated using average adult body mass. Additional eGFR calculator available at: http://www.Horse[employer]ot.[employer]/multiple_crcl_2012.htm GFR/1.73 sq M predicted among non-blacks MDRD (S/P/Bld) [Vol rate/Area] NOT REPORTED [place] Glucose [Mass/Vol] 87 mg/dL 70 - 99 mg/dL [place] Interpretation and review of laboratory results Abnormal [place] Potassium [Moles/Vol] 4.4 mmol/L 3.7 - 5.3 mmol/L [place] Protein [Mass/Vol] 6.6 g/dL 6.4 - 8.3 g/dL [place] Sodium [Moles/Vol] 140 mmol/L 135 - 144 mmol/L [place] Urea nitrogen [Mass/Vol] 21 mg/dL 8 - 23 mg/dL [place] Hematology[place] 03-10-2020 Basophils/100 WBC (Bld) 1 % (0-2) [facility] Comment on above: Note: Responsible Ob client server programmer: XNV AUTOFILE ([id number]) Eosinophils (Bld) [#/Vol] 0.15 10*3/uL (0.00-0.44 ) [facility] Work Phone: Comment on above: Note: Responsible Ob client server programmer: XNV AUTOFILE ([id number]) Eosinophils/100 WBC (Bld) 3 % (1-4) [facility] Work Phone: Comment on above: Note: Responsible Ob client server programmer: XNV AUTOFILE ([id number]) Hematocrit (Bld) [Volume fraction] 42.7 % (36.3-47.1 ) [facility] Work Phone: Comment on above: Note: Responsible Ob client server programmer: XNV AUTOFILE ([id number]) Hemoglobin (Bld) [Mass/Vol] 12.6 g/dL (11.9-15.1 ) [facility] Work Phone: Comment on above: Note: Responsible Ob client server programmer: XNV AUTOFILE ([id number]) Lymphocytes (Bld) [#/Vol] 1.57 10*3/uL (1.10-3.70 ) [facility] Work Phone: Comment on above: Note: Responsible Ob client server programmer: XNV AUTOFILE ([id number]) Lymphocytes/100 WBC (Bld) 29 % (24-43) [facility] Work Phone: Comment on above: Note: Responsible Ob client server programmer: XNV AUTOFILE ([id number]) MCH (RBC) [Entitic mass] 32.1 pg (25.2-33.5 ) [facility] Work Phone: Comment on above: Note: Responsible Ob client server programmer: XNV AUTOFILE ([id number]) MCV (RBC) [Entitic vol] 108.7 fL High (82. 6-102. 9) [facility] Work Phone: Comment on above: Note: Responsible Ob client server programmer: XNV AUTOFILE ([id number]) Monocytes (Bld) [#/Vol] 0.45 10*3/uL (0.1 0-1.20 ) [facility] Work Phone: Comment on above: Note: Responsible Ob client server programmer: XNV AUTOFILE ([id number]) Monocytes/100 WBC (Bld) 8 % (3-12) [facility] Comment on above: Note: Responsible Ob client server programmer: XNV AUTOFILE ([id number]) Platelets (Bld) [#/Vol] NOT REPORTED [facility] Work Phone: Platelets (Bld) [#/Vol] 259 10*3/uL (138-453) [facility] Work Phone: Comment on above: Note: Responsible Ob client server programmer: XNV AUTOFILE ([id number]) RBC (Bld) [#/Vol] 3.93 10*6/uL Low (3.95-5.11 ) [facility] Work Phone: Comment on above: Note: Responsible Ob client server programmer: XNV AUTOFILE ([id number]) RBC morphology finding Nom (Bld) MACROCYTOSIS PRESENT [facility] Work Phone: Comment on above: Note: Responsible Ob client server programmer: XNV AUTOFILE ([id number]) WBC (Bld) [#/Vol] 5.4 10*3/uL (3.5-11.3) [facility] Work Phone: Comment on above: Note: Responsible Ob client server programmer: XNV AUTOFILE ([id number]) WBC (Bld) [#/Vol] 0.0 per_100_WBC (0.0) [facility] Work Phone: Comment on above: Note: Responsible Ob client server programmer: XNV AUTOFILE ([id number]) Lipid, Fastingon 03-10-2020 Cholesterol [Mass/Vol] 139 mg/dL <200 [place] Comment on above: Cholesterol Guidelines: <200 Desirable 200-240 Borderline >240 Undesirable Cholesterol in HDL [Mass/Vol] 46 mg/dL >40 [place] Comment on above: HDL Guidelines: <40 Undesirable 40-59 Borderline >59 Desirable Cholesterol in LDL [Mass/Vol] 73 mg/dL 0 - 130 mg/dL [place] Comment on above: LDL Guidelines: <100 Desirable 100-129 Near to/above Desirable 130-159 Borderline >159 Undesirable Direct (measured) LDL and calculated LDL are not interchangeable tests. Cholesterol in VLDL [Mass/Vol] NOT REPORTED 1 - 30 mg/dL [place] Cholesterol.total/Judy sterol in HDL [Mass ratio] 3 {ratio} <5 [place] Triglyceride, Fasting 102 mg/dL <150 [place] Comment on above: Triglyceride Guidelines: <150 Desirable 150-199 Borderline 200-499 High >499 Very high Based on AHA Guidelines for fasting triglyceride, March 2012. Metabolic Panelon 03-10-2020 Albumin [Mass/Vol] 4.3 g/dL (3.5-5.2) [facility] Work Phone: Comment on above: Note: Responsible Ob client server programmer: CCEV AUTOFILE ([id number]) ALT [Catalytic activity/Vol] 50 U/L High (5-33) [facility] Work Phone: Comment on above: Note: Responsible Ob client server programmer: CCEV AUTOFILE ([id number]) Anion gap [Moles/Vol] 12 mmol/L (9-17) [facility] Work Phone: Comment on above: Note: Responsible Ob client server programmer: CCEV AUTOFILE ([id number]) AST [Catalytic activity/Vol] 28 U/L (<32) [facility] Work Phone: Comment on above: Note: Responsible Ob client server programmer: CCEV AUTOFILE ([id number]) Bilirubin [Mass/Vol] 0.18 mg/dL Low (0.3-1.2) [facility] Work Phone: Comment on above: Note: Responsible Ob client server programmer: CCEV AUTOFILE ([id number]) Calcium [Mass/Vol] 10.7 mg/dL High (8.6-10.4) [facility] Work Phone: Comment on above: Note: Responsible Ob client server programmer: CCEV AUTOFILE ([id number]) Chloride [Moles/Vol] 109 mmol/L High (98-107) [facility] Work Phone: Comment on above: Note: Responsible Ob client server programmer: CCEV AUTOFILE ([id number]) CO2 [Moles/Vol] 19 mmol/L Low (20-31) [facility] Work Phone: Comment on above: Note: Responsible Ob client server programmer: CCEV AUTOFILE ([id number]) Creatinine [Mass/Vol] 1.13 mg/dL High (0.50- 0.90 ) [facility] Work Phone: Comment on above: Note: Responsible Ob client server programmer: CCEV AUTOFILE ([id number]) Glucose [Mass/Vol] 87 mg/dL (70-99) [facility] Work Phone: Comment on above: Note: Responsible Ob client server programmer: CCEV AUTOFILE ([id number]) Potassium [Moles/Vol] 4.4 mmol/L (3.7-5.3) [facility] Work Phone: Comment on above: Note: Responsible Ob client server programmer: CCEV AUTOFILE ([id number]) Protein [Mass/Vol] 6.6 g/dL (6.4-8.3) [facility] Work Phone: Comment on above: Note: Responsible Ob client server programmer: CCEV AUTOFILE ([id number]) Sodium [Moles/Vol] 140 mmol/L (135-144) [facility] Work Phone: Comment on above: Note: Responsible Ob client server programmer: CCEV AUTOFILE ([id number]) Urea nitrogen [Mass/Vol] 21 mg/dL (8-23) [facility] Work Phone: Comment on above: Note: Responsible Ob client server programmer: CCEV AUTOFILE ([id number]) Otheron 03-10-2020 (cont.) See Note [facility] Work Phone: Comment on above: Note: Average GFR fo r 60-69 years old:85 mL/min/1.73sq mChronic Kidney Disease:<60 mL/min/1.73sq mKidney failure:<15 mL/min/1.73sq meGFR calculated using average adult body mass. Additional eGFR calculatoravailable at:http://www.Horsealot.[employer]/multiple_crcl_2012.htmResponsible Observer: CCEV AUTOFILE ([id number]) Abs. Basophil 0.06 k/uL (0.00-0.20 ) [facility] Work Phone: Comment on above: Note: Responsible Ob client server programmer: XNV AUTOFILE ([id number]) Abs.Imm.Granulocyte <0.03 k/uL (0.00-0. 30 ) [facility] Work Phone: Comment on above: Note: Responsible Ob client server programmer: XNV AUTOFILE ([id number]) Abs.Neutrophil (Seg) 3.12 k/uL (1.50-8 .10 ) [facility] Work Phone: Comment on above: Note: Responsible Ob client server programmer: XNV AUTOFILE ([id number]) Albumin/Glob Ratio 1.9 (1.0-2.5) [facility] Work Phone: Comment on above: Note: Responsible Ob client server programmer: CCEV AUTOFILE ([id number]) Alkaline Phos 136 U/L High (35-104) [facility] Work Phone: Comment on above: Note: Responsible Ob client server programmer: CCEV AUTOFILE ([id number]) Auto Diff Performed NOT REPORTED [facility] Work [facility]: BUN/CRE Ratio NOT REPORTED (9-20) [facility] Work Phone: Cholesterol,HDL 46 mg/dL (>40) [facility] Work Phone: Comment on above: Note: HDL Guidelines :<40 [id number] Borderline>59 DesirableResponsible Observer: CCEV AUTOFILE ([id number]) Cholesterol,LDL 73 mg/dL (0-130) [facility] Work Phone: Comment on above: Note: LDL Guidelines :<100 [id number] Near to/above [id number] Borderline>159 UndesirableDirect (measured) LDL and calculated LDL are not interchangeable tests.Responsible Observer: CCEV AUTOFILE ([id number]) Cholesterol,VLDL NOT REPORTED mg/dL (1-30) [facility] Work Phone: Cholesterol.total/Judy sterol in HDL [Mass ratio] 3.0 {ratio} (<5) [facility] Work Phone: Comment on above: Note: Responsible Ob client server programmer: CCEV AUTOFILE ([id number]) Erythrocyte distribution width (RBC) [Ratio] 13.2 % (11.8-14.4 ) [facility] Work Phone: Comment on above: Note: Responsible Ob client server programmer: XNV AUTOFILE ([id number]) GFR, Amer 59 mL/min Low (>60) [facility] Work Phone: Comment on above: Note: Responsible Ob client server programmer: CCEV AUTOFILE ([id number]) GFR,non Amer 49 mL/min Low (>60) [facility] Work Phone: Comment on above: Note: Responsible Ob client server programmer: CCEV AUTOFILE ([id number]) Immature granulocytes (Bld) [#/Vol] 0 % (0) [facility] Work Phone: Comment on above: Note: Responsible Ob client server programmer: XNV AUTOFILE ([id number]) MCHC (RBC) [Mass/Vol] 29.5 g/dL (28.4- 34.8 ) [facility] Work Phone: Comment on above: Note: Responsible Ob client server programmer: XNV AUTOFILE ([id number]) Performing Lab: see note [facility] Work Phone: Comment on above: Note: MICHELLE Kinney [address] [facility] [address] Platelet mean volume (Bld) [Entitic vol] 11.1 fL (8.1-13.5) [facility] Work Phone: Comment on above: Note: Responsible Ob client server programmer: XNV AUTOFILE ([id number]) Reported Physicians See Note [facility] Work Phone: Comment on above: Note: Reported Physi cians:Ordering: Cotton, AimeeAttending: Cotton, AimeeReferring: Cotton, Karla Segmented neutrophils/100 WBC (Bld) 59 % (36-65) [facility] Work Phone: Comment on above: Note: Responsible Ob client server programmer: XNV AUTOFILE ([id number]) Staging: NOT REPORTED [facility] Work Phone: Thyroid Stim. Horm. 1.01 mIU/L (0.30-5. 00 ) [facility] Work Phone: Comment on above: Note: Responsible Ob client server programmer: NA ARORA ([id number]) Triglyceride,Fasting 102 mg/dL (<150) [facility] Work Phone: Comment on above: Note: Triglyceride G uidelines:<150 [id number] High>499 Very highBased on AHA Guidelines for fasting triglyceride, March 2012.Responsible Observer: CCEV AUTOFILE ([id number]) WBC Morphology NOT REPORTED [facility] Work Phone: TSH with Reflexon 03-10-2020 TSH Qn 1.01 m[IU]/L [place] Creatinine, Serumon 08-03-19 20 Creatinine [Mass/Vol] 1.06 mg/dL High 0.5 - 0.9 mg/dL [place] GFR >60 >60 mL/min [place] GFR Non- 53 mL/min Low >60 [place] Interpretation and review of laboratory results Abnormal [place] Glucose, randomon 08-03-2019 Glucose [Mass/Vol] 98 mg/dL 70 - 99 mg/dL [place] Lipid Panelon 08-03-2019 Cholesterol [Mass/Vol] 145 mg/dL <200 [place] Comment on above: Cholesterol Guidelines: <200 Desirable 200-240 Borderline >240 Undesirable Cholesterol in HDL [Mass/Vol] 54 mg/dL >40 [place] Comment on above: HDL Guidelines: <40 Undesirable 40-59 Borderline >59 Desirable Cholesterol in LDL [Mass/Vol] 75 mg/dL 0 - 130 mg/dL [place] Comment on above: LDL Guidelines: <100 Desirable 100-129 Near to/above Desirable 130-159 Borderline >159 Undesirable Direct (measured) LDL and calculated LDL are not interchangeable tests. Cholesterol in VLDL [Mass/Vol] NOT REPORTED 1 - 30 mg/dL [place] Cholesterol.total/Judy sterol in HDL [Mass ratio] 2.7 {ratio} <5 [place] Triglyceride [Mass/Vol] 80 mg/dL <150 [place] Comment on above: Triglyceride Guidelines: <150 Desirable 150-199 Borderline 200-499 High >499 Very high Based on AHA Guidelines for fasting triglyceride, March 2012. [place] Levelon 08-03-2019 [place] Date Last Dose NOT REPORTED [place] Dose Amount NOT [place]PORTED [place] Dose Time NOT REPORTED [place] Lvl 1.1 mmol/L 0.6 - 1.2 mmol/L [place] Metabolic Panelon 08-03-2019 GFR/1.73 sq M predicted among non-blacks MDRD (S/P/Bld) [Vol rate/Area] [place] Comment on above: Average GFR for 60-6 9 years old: 85 mL/min/1.73sq m Chronic Kidney Disease: <60 mL/min/1.73sq m Kidney failure: <15 mL/min/1.73sq m eGFR calculated using average adult body mass. Additional eGFR calculator available at: http://www.[employer]/multiple_crcl_2012.htm Stage 1: Some kidney damage normal GFR Stage 2: Mild kidney damage GFR 60-89 Stage 3: Moderate kidney damage GFR 30-59 Stage 4: Severe kidney damage GFR 15-29 Stage 5: Severe kidney damage GFR <15 ESRD - chronic treatment by dialysis or transplant TSH without Reflexon 020 TSH Qn 1.45 m[IU]/L [place] US BREAST LIMITED LEFTon 1. Previously [...] sent to the patient regarding the results. [place] EXAMINATION: TARGETE D ULTRASOUND OF THE [...] this region as no target was demonstrated. [facility] [facility]- [place], [place], [place] Incoming Radiant Results From oLyfe/Peek - 04/10/2019 12:52 PM EST EXAMINATION: TARGETED [...] sent to the patient regarding the results. [place] BREAST COMPLETE LEFTon 2 site [...] patient at the time of service. A hr representative from the radiology department will be contacting your office and assisting the patient in getting appropriate follow-up. [place] EXAMINATION: TARGETE D ULTRASOUND OF THE [...] images of the axilla show no lymphadenopathy. [place], [place] Incoming Radiant Results From [facility]Lyfe[facility]ek - 03/11/2019 1:56 PM EDT EXAMINATION: TARGETED [...] patient at the time of service. A hr representative from the radiology department will be contacting your office and assisting the patient in getting appropriate follow-up. [employer] [place] XR FOOT RIGHT (MIN 3 VIEWS)o n 02-16-2019 No acute osseous abnormality. 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 [employer] [place] EXAMINATION: THREE X RAY VIEWS OF THE RIGHT FOOT 02/16/2019 11:39 am COMPARISON: None. 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 Lisfranc alignment is normal. 5th metatarsal base is intact. Talonavicular degenerative change. [employer] [place] Incoming Radiant Results From oLyfe/Peek - 02/16/2019 12:08 PM EDT EXAMINATION: THREE [...] abnormality. 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 [place] [facility] 11-14-2018 Cholesterol [Mass/Vol] 150 mg/dL (<200) [facility] Work Phone: Comment on above: Note: Cholesterol Gu idelines: <200 Desirable 200-240 Borderline >240 Undesirable Responsible Observer: CET TWO AUTOFILE ([id number]) Triglyceride [Mass/Vol] 147 mg/dL (<150) [facility] Work Phone: Comment on above: Note: Triglyceride G uidelines: <150 Desirable 150-199 Borderline 200-499 High >499 Very high Based on AHA Guidelines for fasting triglyceride, March 2012. Responsible Observer: CET TWO AUTOFILE ([id number]) Hematologyon 11-14-2018 Basophils/100 WBC (Bld) 1 % (0-2) [facility] Work Phone: Comment on above: Note: Responsible Ob client server programmer: XNT AUTOFILE ([id number]) Eosinophils (Bld) [#/Vol] 0.15 10*3/uL (0.00-0.44 ) [facility] Work Phone: Comment on above: Note: Responsible Ob client server programmer: XNT AUTOFILE ([id number]) Eosinophils/100 WBC (Bld) 3 % (1-4) [facility] Work Phone: Comment on above: Note: Responsible Ob client server programmer: XNT AUTOFILE ([id number]) Hematocrit (Bld) [Volume fraction] 39.9 % (36.3-47.1 ) [facility] Work Phone: Comment on above: Note: Responsible Ob client server programmer: XNT AUTOFILE ([id number]) Hemoglobin (Bld) [Mass/Vol] 12.5 g/dL (11.9-15.1 ) [facility] Work Phone: Comment on above: Note: Responsible Ob client server programmer: XNT AUTOFILE ([id number]) Lymphocytes (Bld) [#/Vol] 1.97 10*3/uL (1.10-3.70 ) [facility] Work Phone: Comment on above: Note: Responsible Ob client server programmer: XNT AUTOFILE ([id number]) Lymphocytes/100 WBC (Bld) 36 % (24-43) [facility] Work Phone: Comment on above: Note: Responsible Ob client server programmer: XNT AUTOFILE ([id number]) MCH (RBC) [Entitic mass] 31.2 pg (25.2-33.5 ) [facility] Work Phone: Comment on above: Note: Responsible Ob client server programmer: XNT AUTOFILE ([id number]) MCV (RBC) [Entitic vol] 99.5 fL (82. 6-102. 9) [facility] Work Phone: Comment on above: Note: Responsible Ob client server programmer: XNT AUTOFILE ([id number]) Monocytes (Bld) [#/Vol] 0.54 10*3/uL (0.1 0-1.20 ) [facility] Work Phone: Comment on above: Note: Responsible Ob client server programmer: XNT AUTOFILE ([id number]) Monocytes/100 WBC (Bld) 10 % (3-12) [facility] Work [facility]: Comment on above: Note: Responsible Ob client server programmer: XNT AUTOFILE ([id number]) Platelets (Bld) [#/Vol] NOT REPORTED [facility] Work Phone: Platelets (Bld) [#/Vol] 269 10*3/uL (138-453) [facility] Work Phone: Comment on above: Note: Responsible Ob client server programmer: XNT AUTOFILE ([id number]) RBC (Bld) [#/Vol] 4.01 10*6/uL (3.95-5.11 ) [facility] Work Phone: Comment on above: Note: Responsible Ob client server programmer: XNT AUTOFILE ([id number]) RBC morphology finding Nom (Bld) NOT REPORTED [facility] Work Phone: WBC (Bld) [#/Vol] 0.0 per_100_WBC (0.0) [facility] Work Phone: Comment on above: Note: Responsible Ob client server programmer: XNT AUTOFILE ([id number]) WBC (Bld) [#/Vol] 5.5 10*3/uL (3.5-11.3) [facility] Work Phone: Comment on above: Note: Responsible Ob client server programmer: XNT AUTOFILE ([id number]) Metabolic Panelon 11-14-2018 Albumin [Mass/Vol] 4.4 g/dL (3.5-5.2) [facility] Work Phone: Comment on above: Note: Responsible Ob client server programmer: CET TWO AUTOFILE ([id number]) ALT [Catalytic activity/Vol] 18 U/L (5-33) [facility] Work Phone: Comment on above: Note: Responsible Ob client server programmer: CET TWO AUTOFILE ([id number]) Anion gap [Moles/Vol] 9 mmol/L (9-17) [facility] Work Phone: Comment on above: Note: Responsible Ob client server programmer: CET TWO AUTOFILE ([id number]) AST [Catalytic activity/Vol] 15 U/L (<32) [facility] Work Phone: Comment on above: Note: Responsible Ob client server programmer: CET TWO AUTOFILE ([id number]) Bilirubin [Mass/Vol] 0.35 mg/dL (0.3-1.2) [facility] Work Phone: Comment on above: Note: Responsible Ob client server programmer: CET TWO AUTOFILE ([id number]) Calcium [Mass/Vol] 10.8 mg/dL High (8.6-10.4) [facility] Work Phone: Comment on above: Note: Responsible Ob client server programmer: CET TWO AUTOFILE ([id number]) Chloride [Moles/Vol] 109 mmol/L High (98-107) [facility] Work Phone: Comment on above: Note: Responsible Ob client server programmer: CET TWO AUTOFILE ([id number]) CO2 [Moles/Vol] 24 mmol/L (20-31) [facility] Work Phone: Comment on above: Note: Responsible Ob client server programmer: CET TWO AUTOFILE ([id number]) Creatinine [Mass/Vol] 1.07 mg/dL High (0.50- 0.90 ) [facility] Work Phone: Comment on above: Note: Responsible Ob client server programmer: CET TWO AUTOFILE ([id number]) Glucose [Mass/Vol] 101 mg/dL High (70-99) [facility] Work Phone: Comment on above: Note: Responsible Ob client server programmer: CET TWO AUTOFILE ([id number]) Potassium [Moles/Vol] 4.3 mmol/L (3.7-5.3) [facility] Work Phone: Comment on above: Note: Responsible Ob client server programmer: CET TWO AUTOFILE ([id number]) Protein [Mass/Vol] 7.1 g/dL (6.4-8.3) [facility] Work Phone: Comment on above: Note: Responsible Ob client server programmer: CET TWO AUTOFILE ([id number]) Sodium [Moles/Vol] 142 mmol/L (135-144) [facility] Work Phone: Comment on above: Note: Responsible Ob client server programmer: CET TWO AUTOFILE ([id number]) Urea nitrogen [Mass/Vol] 15 mg/dL (8-23) [facility] Work Phone: Comment on above: Note: Responsible Ob client server programmer: CET TWO AUTOFILE ([id number]) Otheron 11-14-2018 (cont.) See Note [facility] Work Phone: Comment on above: Note: Average GFR fo r 60-69 years old: 85 mL/min/1.73sq mChronic Kidney Disease: <60 mL/min/1.73sq mKidney failure: <15 mL/min/1.73sq m eGFR calculated using average adult body mass. Additional eGFR calculator available at: http://www.Horsealot.[employer]/multiple_crcl_2012.htm Responsible Observer: CET TWO AUTOFILE ([id number]) Abs. Basophil 0.04 k/uL (0.00-0.20 ) [facility] Work Phone: Comment on above: Note: Responsible Ob client server programmer: XNT AUTOFILE ([id number]) Abs.Imm.Granulocyte <0.03 k/uL (0.00-0. 30 ) [facility] Work Phone: Comment on above: Note: Responsible Ob client server programmer: XNT AUTOFILE ([id number]) Abs.Neutrophil (Seg) 2.77 k/uL (1.50-8 .10 ) [facility] Work Phone: Comment on above: Note: Responsible Ob client server programmer: XNT AUTOFILE ([id number]) Albumin/Glob Ratio 1.6 (1.0-2.5) [facility] Work Phone: Comment on above: Note: Responsible Ob client server programmer: CET TWO AUTOFILE ([id number]) Alkaline Phos 135 U/L High (35-104) [facility] Work Phone: Comment on above: Note: Responsible Ob client server programmer: CET TWO AUTOFILE ([id number]) Auto Diff Performed NOT REPORTED [facility] Work [facility]: BUN/CRE Ratio 14 (9-20) [facility] Work Phone: Comment on above: Note: Responsible Ob client server programmer: CET TWO AUTOFILE ([id number]) Cholesterol,HDL 44 mg/dL (>40) [facility] Work Phone: Comment on above: Note: HDL Guidelines : <40 Undesirable 40-59 Borderline >59 Desirable Responsible Observer: CET TWO AUTOFILE ([id number]) Cholesterol,LDL 77 mg/dL (0-130) [facility] Work Phone: Comment on above: Note: LDL Guidelines : <100 Desirable 100-129 Near to/above Desirable 130-159 Borderline >159 Undesirable Direct (measured) LDL and calculated LDL are not interchangeable tests.Responsible Observer: CET TWO AUTOFILE ([id number]) Cholesterol,VLDL NOT REPORTED mg/dL (1-30) [facility] Work Phone: Cholesterol.total/Judy sterol in HDL [Mass ratio] 3.4 {ratio} (<5) [facility] Work Phone: Comment on above: Note: Responsible Ob client server programmer: CET TWO AUTOFILE ([id number]) Erythrocyte distribution width (RBC) [Ratio] 13.2 % (11.8-14.4 ) [facility] Work Phone: Comment on above: Note: Responsible Ob client server programmer: XNT AUTOFILE ([id number]) GFR, Amer >60 mL/min (>60) [facility] Work Phone: Comment on above: Note: Responsible Ob client server programmer: CET TWO AUTOFILE ([id number]) GFR,non Amer 52 mL/min Low (>60) [facility] Work Phone: Comment on above: Note: Responsible Ob client server programmer: CET TWO AUTOFILE ([id number]) Immature granulocytes (Bld) [#/Vol] 0 % (0) [facility] Work Phone: Comment on above: Note: Responsible Ob client server programmer: XNT AUTOFILE ([id number]) MCHC (RBC) [Mass/Vol] 31.3 g/dL (28.4- 34.8 ) [facility] Work Phone: Comment on above: Note: Responsible Ob client server programmer: [employer]NT [employer] ([id number]) Performing Lab: see note [facility] Work Phone: Comment on above: Note: [facility] [address] [place] [address] Platelet mean volume (Bld) [Entitic vol] 10.8 fL (8.1-13.5) [facility] Work Phone: Comment on above: Note: Responsible Ob client server programmer: XNT [employer]FILE ([id number]) Reported Physicians See Note [facility] Work Phone: Comment on above: Note: Reported Physi cians:Ordering: Cotton, AimeeAttending: Cotton, AimeeReferring: Cotton, Karla Segmented neutrophils/100 WBC (Bld) 50 % (36-65) [facility] Work Phone: Comment on above: Note: Responsible Ob client server programmer: [employer]NT [employer] ([id number]) Staging: See Note [facility] Work Phone: Comment on above: Note: Stage 1: Some kidney damage normal GFRStage 2: Mild kidney damage GFR 60-89Stage 3: Moderate kidney damage GFR 30-59Stage 4: Severe kidney damage GFR 15-29Stage 5: Severe kidney damage GFR <15ESRD - chronic treatment by dialysis or transplantResponsible Observer: CET TWO [employer]OFILE ([id number]) Thyroid Stim. Horm. 1.05 mIU/L (0.30-5. 00 ) [facility] Work Phone: Comment on above: Note: Responsible Ob client server programmer: [employer] ([id number]) Thyroxine, Free 0.93 ng/dL (0.93-1.70 ) [facility] Work Phone: Comment on above: Note: Responsible Ob client server programmer: [employer]ET [employer] ([id number]) WBC Morphology NOT REPORTED [facility] Work Phone: Cardiacon 09-24-2018 Cholesterol [Mass/Vol] 171 mg/dL (<200) [facility] Work Phone: Comment on above: Note: Cholesterol Gu idelines: <200 Desirable 200-240 Borderline >240 Undesirable Responsible Observer: MORRIS LOUISE (MHT) (Padmini) Triglyceride [Mass/Vol] 400 mg/dL High (<150) [facility] Work Phone: Comment on above: Note: Triglyceride G uidelines: <150 Desirable 150-199 Borderline 200-499 High >499 Very high Based on AHA Guidelines for fasting triglyceride, March 2012. Responsible Observer: MORRIS Boyd (MHT)) Hematologyon 09-24-2018 Basophils/100 WBC (Bld) 1 % (0-2) H [facility] Work Phone: Comment on above: Note: Responsible Ob client server programmer: XNT AUT[employer]FILE ([id number]) Eosinophils (Bld) [#/Vol] 0.15 10*3/uL (0.00-0.44 ) [facility] Work Phone: Comment on above: Note: Responsible Ob client server programmer: XNT AUT[employer]FILE ([id number]) Eosinophils/100 WBC (Bld) 2 % (1-4) [facility] Work Phone: Comment on above: Note: Responsible Ob client server programmer: XNT AUT[employer]FILE ([id number]) Hematocrit (Bld) [Volume fraction] 42.8 % (36.3-47.1 ) [facility] Work Phone: Comment on above: Note: Responsible Ob client server programmer: XNT AUT[employer]FILE ([id number]) Hemoglobin (Bld) [Mass/Vol] 13.7 g/dL (11.9-15.1 ) [facility] Work Phone: Comment on above: Note: Responsible Ob client server programmer: XNT AUT[employer]FILE ([id number]) Lymphocytes (Bld) [#/Vol] 1.73 10*3/uL (1.10-3.70 ) [facility] Work Phone: Comment on above: Note: Responsible Ob client server programmer: XNT AUT[employer]FILE ([id number]) Lymphocytes/100 WBC (Bld) 24 % (24-43) [facility] Work Phone: Comment on above: Note: Responsible Ob client server programmer: XNT [employer]FILE ([id number]) MCH (RBC) [Entitic mass] 31.1 pg (25.2-33.5 ) [facility] Work Phone: Comment on above: Note: Responsible Ob client server programmer: XNT AUT[employer]FILE ([id number]) MCV (RBC) [Entitic vol] 97.3 fL (82. 6-102. 9) [facility] Work Phone: Comment on above: Note: Responsible Ob client server programmer: XNT AUT[employer]FILE ([id number]) Monocytes (Bld) [#/Vol] 0.64 10*3/uL (0.1 0-1.20 ) [facility] Work Phone: Comment on above: Note: Responsible Ob client server programmer: XNT AUTOFILE ([id number]) Monocytes/100 WBC (Bld) 9 % (3-12) [facility] Comment on above: Note: Responsible Ob client server programmer: XNT AUTOFILE (9) Platelets (Bld) [#/Vol] NOT REPORTED [facility] Work Phone: Platelets (Bld) [#/Vol] 280 10*3/uL (138-453) [facility] Work Phone: Comment on above: Note: Responsible Ob client server programmer: XNT AUTOFILE ([id number]) RBC (Bld) [#/Vol] 4.40 10*6/uL (3.95-5.11 ) [facility] Work Phone: Comment on above: Note: Responsible Ob client server programmer: XNT AUTOFILE ([id number]) RBC morphology finding Nom (Bld) NOT REPORTED [facility] Work Phone: WBC (Bld) [#/Vol] 7.3 10*3/uL (3.5-11.3) [facility] Work Phone: Comment on above: Note: Responsible Ob client server programmer: XNT AUTOFILE (9) WBC (Bld) [#/Vol] 0.0 per_100_WBC (0.0) [facility] Work Phone: Comment on above: Note: Responsible Ob client server programmer: XNT AUTOFILE ([id number]) Metabolic Panelon 09-24-2018 Albumin [Mass/Vol] 4.2 g/dL (3.5-5.2) [facility] Work Phone: Comment on above: Note: Responsible Ob client server programmer: MORRIS SnyderTremaine LOUISE (1932) ALT [Catalytic activity/Vol] 16 U/L (5-33) [facility] Work Phone: Comment on above: Note: Responsible Ob client server programmer: MORRIS LOUISE (MHT) (1932) Anion gap [Moles/Vol] 16 mmol/L [facility] Work Phone: Comment on above: Note: Responsible Ob client server programmer: MORRIS DE PAZT) ASPEN (1932) AST [Catalytic activity/Vol] 14 U/L (<32) [facility] Work Phone: Comment on above: Note: Responsible Ob client server programmer: MORRIS DE PAZT) ASPEN (1932) Bilirubin [Mass/Vol] mg/dL Low (0.3-1.2) [facility] Work Phone: Comment on above: Note: Responsible Ob client server programmer: MORRIS (ALYSSAT) ASPEN (1932) Calcium [Mass/Vol] 11.2 mg/dL High (8.6-10.4) [facility] Work Phone: Comment on above: Note: Responsible Ob client server programmer: MORRIS DE PAZT) ASPEN (1932) Chloride [Moles/Vol] 103 mmol/L (98-107) [facility] Work Phone: Comment on above: Note: UNABLE TO CALC ULATE GAP, SPECIMEN REPEATEDCORRECTED ON 09/24 AT 1740: PREVIOUSLY REPORTED 112Responsible Observer: MORRIS SnyderALYSSAAnmol) ASPEN (1932) CO2 [Moles/Vol] 22 mmol/L (20-31) [facility] Work Phone: Comment on above: Note: UNABLE TO CALC ULATE GAP, SPECIMEN REPEATEDCORRECTED ON 09/24 AT 1740: PREVIOUSLY REPORTED 24Responsible Observer: MORRIS HUBBARD) ASPEN (1932) Creatinine [Mass/Vol] 0.93 mg/dL High (0.50- 0.90 ) [facility] Work Phone: Comment on above: Note: Responsible Ob client server programmer: MORRIS (ALYSSAAnmol) ASPEN (1932) Glucose [Mass/Vol] 91 mg/dL (70-99) [facility] Work Phone: Comment on above: Note: Responsible Ob client server programmer: MORRIS (ALYSSAT) ASPEN (1932) Potassium [Moles/Vol] 4.5 mmol/L (3.7-5.3) [facility] Work Phone: Comment on above: Note: UNABLE TO CALC ULATE GAP, SPECIMEN REPEATEDCORRECTED ON 09/24 AT 1740: PREVIOUSLY REPORTED 4.0Responsible Observer: MORRIS LOUISE (MHT) (Jing) Protein [Mass/Vol] 7.0 g/dL (6.4-8.3) [facility] Work Phone: Comment on above: Note: Responsible Ob client server programmer: MORRIS Snyder (MHT)1932) Sodium [Moles/Vol] 141 mmol/L (135-144) [facility] Work Phone: Comment on above: Note: UNABLE TO CALC ULATE GAP, SPECIMEN REPEATEDCORRECTED ON 09/24 AT 1740: PREVIOUSLY REPORTED 133Responsible Observer: MORRIS LOUISE (MHT) (1932) Urea nitrogen [Mass/Vol] 17 mg/dL (8-23) [facility] Work Phone: Comment on above: Note: Responsible Ob client server programmer: MORRIS Boyd (MHT)) Otheron 09-24-2018 (cont.) See Note [facility] Work Phone: Comment on above: Note: Average GFR fo r 60-69 years old: 85 mL/min/1.73sq mChronic Kidney Disease: <60 mL/min/1.73sq mKidney failure: <15 mL/min/1.73sq m eGFR calculated using average adult body mass. Additional eGFR calculator available at: http://[email or web address]_crcl_2011.htm Responsible Observer: MORRIS Snyder (MHT)1932) Abs. Basophil 0.04 k/uL (0.00-0.20 ) [facility] Work Phone: Comment on above: Note: Responsible Ob client server programmer: XNT AUTOFILE ([id number]) Abs.Imm.Granulocyte 0.03 k/uL (0.00-0. 30 ) [facility] Work Phone: Comment on above: Note: Responsible Ob client server programmer: XNT AUTOFILE ([id number]) Abs.Neutrophil (Seg) 4.73 k/uL (1.50-8 .10 ) [facility] Work Phone: Comment on above: Note: Responsible Ob client server programmer: XNT AUTOFILE ([id number]) Albumin/Glob Ratio 1.5 (1.0-2.5) [facility] Work Phone: Comment on above: Note: Responsible Ob client server programmer: MORRIS LOUISE (MHT) (1932) Alkaline Phos 124 U/L High (35-104) [facility] Work Phone: Comment on above: Note: Responsible Ob client server programmer: MORRIS SnyderTremaine LOUISE (1932) Auto Diff Performed NOT REPORTED [facility] Work [facility]: BUN/CRE Ratio 18 (9-20) [facility] Work Phone: Comment on above: Note: Responsible Ob client server programmer: MORRIS Snyder (MHT)1932) Cholesterol,HDL 42 mg/dL (>40) [facility] Work Phone: Comment on above: Note: HDL Guidelines : <40 Undesirable 40-59 Borderline >59 Desirable Responsible Observer: MORRIS Snyder (MHT)1932) Cholesterol,LDL 49 mg/dL (0-130) [facility] Work Phone: Comment on above: Note: LDL Guidelines : <100 Desirable 100-129 Near to/above Desirable 130-159 Borderline >159 Undesirable Direct (measured) LDL and calculated LDL are not interchangeable tests.Responsible Observer: MORRIS Snyder (MHT)1932) Cholesterol,VLDL NOT REPORTED mg/dL (1-30) [facility] Work Phone: Cholesterol.total/Judy sterol in HDL [Mass ratio] 4.1 {ratio} (<5) [facility] Work Phone: Comment on above: Note: Responsible Ob client server programmer: MORRIS Snyder (MHT)1932) Erythrocyte distribution width (RBC) [Ratio] 12.7 % (11.8-14.4 ) [facility] Work Phone: Comment on above: Note: Responsible Ob client server programmer: XNT AUTOFILE ([id number]) GFR, Amer >60 mL/min (>60) [facility] Work Phone: Comment on above: Note: Responsible Ob client server programmer: MORRIS LOUISE (MHT) (1932) GFR,non Amer >60 mL/min (>60) [facility] Work Phone: Comment on above: Note: Responsible Ob client server programmer: MORRIS LOUISE (MHT) (1932) Immature granulocytes (Bld) [#/Vol] 0 % (0) [facility] Work Phone: Comment on above: Note: Responsible Ob client server programmer: XNT AUTOFILE ([id number]) MCHC (RBC) [Mass/Vol] 32.0 g/dL (28.4- 34.8 ) [facility] Work Phone: Comment on above: Note: Responsible Ob client server programmer: XNT AUTOFILE ([id number]) Performing Lab: see note [facility] Work Phone: Comment on above: Note: [facility] [address] [place] [address] Platelet mean volume (Bld) [Entitic vol] 11.0 fL (8.1-13.5) [facility] Work Phone: Comment on above: Note: Responsible Ob client server programmer: XNT AUTOFILE ([id number]) Reported Physicians See Note [facility] Work Phone: Comment on above: Note: Reported Physi cians:Ordering: Cotton, AimeeAttending: Cotton, AimeeReferring: Cotton, Karla Segmented neutrophils/100 WBC (Bld) 64 % (36-65) [facility] Work Phone: Comment on above: Note: Responsible Ob client server programmer: XNT AUTOFILE ([id number]) Staging: See Note [facility] Work Phone: Comment on above: Note: Stage 1: Some kidney damage normal GFRStage 2: Mild kidney damage GFR 60-89Stage 3: Moderate kidney damage GFR 30-59Stage 4: Severe kidney damage GFR 15-29Stage 5: Severe kidney damage GFR <15ESRD - chronic treatment by dialysis or transplantResponsible Observer: MORRIS LOUISE (MHT) (1932) Thyroid Stim. Horm. 1.08 mIU/L (0.30-5. 00 ) [facility] Work Phone: Comment on above: Note: Responsible Ob client server programmer: MORRIS SnyderAnmol) ASPEN (1932) Thyroxine, Free 0.97 ng/dL (0.93-1.70 ) [facility] Work Phone: Comment on above: Note: Responsible Ob client server programmer: [facility] ASPEN (1932) WBC Morphology NOT REPORTED [facility] Work Phone: Hematologyon 07-31-2018 pH (Bld) Negative Normal (5.0/6.0/6 .5/7.0/7.5 /8.0/8.5) [facility] Work Phone: Laboratory - Chemistry and C hemistry - challengeOrdered By: Karla Clark on 07-31-2018 Bilirubin [Mass/Vol] Negative Normal (Neg/Sm all /Moderate/ Large) [facility] Work Phone: Glucose [Mass/Vol] Negative Normal (NEG/100/ 2 50/500/100 or more) [facility] Work Phone: Ketones Ql (U) Negative Normal (Neg/Small /Moderate/ Large) [facility] Work Phone: pH (Bld) Negative Normal (5.0/6.0/6 .5/7.0/7.5 /8.0/8.5) [facility] Work Phone: Protein [Mass/Vol] Negative Normal (Neg/Trac e /30/100/30 or more) [facility] Work Phone: Urobilinogen (U) [Mass/Vol] Negative Normal (t) [facility] Work Phone: Specific gravity (U) [Rel density] 1.000 Normal (1.000/1.0 05/1.101/1 .015/1.020 /1.025/1.0 30) [facility] Work Phone: Laboratory - UrinalysisOrder ed By: Karla Clark on 07-31-2018 Nitrite Ql (U) Negative Normal (Neg/Pos) [facility] Work Phone: Metabolic Panelon 07-31-2018 Bilirubin [Mass/Vol] Negative Normal (Neg/Sm all /Moderate/ Large) [facility] Work Phone: Glucose [Mass/Vol] Negative Normal (NEG/100/ 2 50/500/100 or more) [facility] Work Phone: Protein [Mass/Vol] Negative Normal (Neg/Trac e /30/100/30 or more) [facility] Work Phone: No Panel InformationOrdered By: Karla Clark on 07-31-2018 Blood Negative Normal (Neg/NH-Tr pedro/NH-Mod erate/H-Tr pedro/H-smal l/H-Modera t) [facility] Work Phone: All Values Normal abnormal Abnormal (NORMAL) [facility] Work Phone: Leukocyates trace Abnormal (Neg/Trace /Small/Mod erate/Larg e) [facility] Work Phone: Otheron 07-31-2018 Blood Negative Normal (Neg/NH-Tr pedro/NH-Mod erate/H-Tr pedro/H-smal l/H-Modera t) [facility] Work Phone: Nitrite Ql (U) Negative Normal (Neg/Pos) [facility] Work Phone: Urobilinogen Qn (U) Negative Normal (t) [facility] Work Phone: Urinalysison 07-31-2018 Ketones Ql (U) Negative Normal (Neg/Small /Moderate/ Large) [facility] Work Phone: Cardiacon 09-26-2017 Cholesterol mass conc 195 mg/dL Invalid Interpretation Code <200 [facility] Cholesterol mass conc 195 mg/dL Invalid Interpretation Code <200 [facility] Hematologyon 09-26-2017 Basophils Auto #/vol (Bld) 0.070 10*3/uL Invalid Interpretation Code 0.00-0.20 [facility] Basophils/100 WBC Auto (Bld) 1 % Invalid Interpretation Code 0-2 [facility] Eosinophils Auto #/vol (Bld) 2 10*3/uL Invalid Interpretation Code 1-4 [facility] Eosinophils Auto #/vol (Bld) 0.140 10*3/uL Invalid Interpretation Code 0.00-0.44 [facility] Erythrocyte distribution width Auto Ratio (RBC) 13.2 % Invalid Interpretation Code 11.8-14.4 [facility] Hematocrit Auto Volume Fraction (Bld) 44.2 % Invalid Interpretation Code 36.3-47.1 [facility] Hemoglobin mass conc (Bld) 13.5 g/dL Invalid Interpretation Code 11.9-15.1 [facility] Lymphocytes Auto #/vol (Bld) 31 10*3/uL Invalid Interpretation Code 24-43 [facility] Lymphocytes Auto #/vol (Bld) 2.240 10*3/uL Invalid Interpretation Code 1.10-3.70 [facility] MCH Auto Entitic mass (RBC) 31.0 pg Invalid Interpretation Code 25.2-33.5 [facility] MCHC Auto mass conc (RBC) 30.5 g/dL Invalid Interpretation Code 28.4-34.8 [facility] MCV Auto Entitic volume (RBC) 101.4 fL Invalid Interpretation Code 82.6-102.9 [facility] Monocytes Auto #/vol (Bld) 9 10*3/uL Invalid Interpretation Code 3-12 [facility] Monocytes Auto #/vol (Bld) 0.640 10*3/uL Invalid Interpretation Code 0.10-1.20 [facility] Neutrophils Auto #/vol (Bld) 4.10 10*3/uL Invalid Interpretation Code 1.50-8.10 [facility] Platelet mean volume Auto Entitic volume (Bld) 11.7 fL Invalid Interpretation Code 8.1-13.5 [facility] RBC Auto #/vol (Bld) 4.36 10*6/uL Invalid Interpretation Code 3.95-5.11 [facility] WBC Auto #/vol (Bld) 7.2 10*3/uL Invalid Interpretation Code 3.5-11.3 [facility] Basophils Auto #/vol (Bld) 0.070 10*3/uL Invalid Interpretation Code 0.00-0.20 [facility] Basophils/100 WBC (Bld) 1 % 0-2 [facility] Basophils/100 WBC Auto (Bld) 1 % Invalid Interpretation Code 0-2 [facility] Eosinophils 0.14 10*3/uL Invalid Interpretation Code 0.00-0.44 [facility] Eosinophils 2 10*3/uL Invalid Interpretation Code 1-4 [facility] Eosinophils #/vol (Bld) 0.14 10*3/uL 0.00-0.44 [facility] Eosinophils #/vol (Bld) 2 10*3/uL 1-4 [facility] Eosinophils Auto #/vol (Bld) 0.140 10*3/uL Invalid Interpretation Code 0.00-0.44 [facility] [employer] Erythrocyte distribution width Auto Ratio (RBC) 13.2 % Invalid Interpretation Code 11.8-14.4 [facility] [employer] Erythrocytes (RBC) 4.36 10*6/uL Invalid Interpretation Code 3.95-5.11 [facility] [employer] Erythrocytes (RBC) NOT REPORTED Invalid Interpretation Code [facility] [employer] Erythrocytes (RBC) 0.0 10*6/uL Invalid Interpretation Code 0.0 [facility] [employer] [facility]: Hematocrit (HCT) 44.2 % Invalid Interpretation Code 36.3-47.1 [facility] [employer] Hematocrit Volume Fraction (Bld) 44.2 % 36.3-47.1 [facility] [employer] Hemoglobin mass conc (Bld) 13.5 g/dL Invalid Interpretation Code 11.9-15.1 [facility] [employer] Lymphocytes 2.24 10*3/uL Invalid Interpretation Code 1.10-3.70 [facility] [employer] Lymphocytes 31 10*3/uL Invalid Interpretation Code 24-43 [facility] [employer] Lymphocytes #/vol (Bld) 31 10*3/uL 24-43 [facility] Lymphocytes #/vol (Bld) 2.24 10*3/uL 1.10-3.70 [facility] Lymphocytes Auto #/vol (Bld) 2.240 10*3/uL Invalid Interpretation Code 1.10-3.70 [facility] MCH 31.0 pg Invalid Interpretation Code 25.2-33.5 [facility] MCH Entitic mass (RBC) 31.0 pg 25.2-33.5 [facility] MCHC mass conc (RBC) 30.5 g/dL Invalid Interpretation Code 28.4-34.8 [facility] MCV 101.4 fL Invalid Interpretation Code 82.6-102.9 [facility] MCV Entitic volume (RBC) 101.4 fL 82.6-102.9 [facility] Monocytes 0.64 10*3/uL Invalid Interpretation Code 0.10-1.20 [facility] Monocytes 9 10*3/uL Invalid Interpretation Code 3-12 [facility] Monocytes #/vol (Bld) 0.64 10*3/uL 0.10-1.20 [facility] Monocytes #/vol (Bld) 9 10*3/uL 3-12 Hea [facility] Monocytes Auto #/vol (Bld) 0.640 10*3/uL Invalid Interpretation Code 0.10-1.20 [facility] Neutrophils Auto #/vol (Bld) 4.10 10*3/uL Invalid Interpretation Code 1.50-8.10 [facility] Platelet mean volume (PMV) 11.7 fL Invalid Interpretation Code 8.1-13.5 [facility] RBC #/vol (Bld) 4.36 10*6/uL 3.95-5.11 [facility] WBC #/vol (Bld) 7.2 10*3/uL 3.5-11.3 [facility] WBC (Leukocytes) 7.2 10*3/uL Invalid Interpretation Code 3.5-11.3 [facility] Metabolic Panelon 09-26-2017 Albumin mass conc 4.1 g/dL Invalid Interpretation Code 3.5-5.2 [facility] ALT enzyme act/vol 28 U/L Invalid Interpretation Code 5-33 [facility] Anion gap 3 molar conc 9 mmol/L Invalid Interpretation Code 9-17 [facility] AST enzyme act/vol 19 U/L Invalid Interpretation Code <32 [facility] Bilirubin mass conc 0.250 mg/dL Invalid Interpretation Code 0.3-1.2 [facility] Calcium mass conc 10.80 mg/dL Invalid Interpretation Code 8.6-10.4 [facility] Chloride molar conc 103 mmol/L Invalid Interpretation Code 98-107 [facility] CO2 molar conc 27 mmol/L Invalid Interpretation Code 20-31 [facility] Creatinine mass conc 0.83 mg/dL Invalid Interpretation Code 0.50-0.90 [facility] Glucose mass conc 95 mg/dL Invalid Interpretation Code 70-99 [facility] Potassium molar conc 4.8 mmol/L Invalid Interpretation Code 3.7-5.3 [facility] Protein mass conc 7.0 g/dL Invalid Interpretation Code 6.4-8.3 [facility] Sodium molar conc 139 mmol/L Invalid Interpretation Code 135-144 [facility] Urea nitrogen mass conc 22.0 mg/dL Invalid Interpretation Code 8-23 [facility] Albumin mass conc 4.1 g/dL Invalid Interpretation Code 3.5-5.2 [facility] ALT enzyme act/vol 28 U/L Invalid Interpretation Code 5-33 [facility] Anion gap 9 mmol/L Invalid Interpretation Code 9-17 [facility] Anion gap molar conc 9 mmol/L 9-17 [facility] AST enzyme act/vol 19 U/L Invalid Interpretation Code <32 [facility] Bilirubin mass conc 0.25 mg/dL Invalid Interpretation Code 0.3-1.2 [facility] Bilirubin mass conc 0.250 mg/dL Invalid Interpretation Code 0.3-1.2 [facility] BUN (urea nitrogen) 22 mg/dL Invalid Interpretation Code 8-23 [facility] Calcium mass conc 10.8 mg/dL Invalid Interpretation Code 8.6-10.4 [facility] Calcium mass conc 10.80 mg/dL Invalid Interpretation Code 8.6-10.4 [facility] Chloride molar conc 103 mmol/L Invalid Interpretation Code 98-107 [facility] CO2 27 mmol/L Invalid Interpretation Code 20-31 [facility] Creatinine mass conc 0.83 mg/dL Invalid Interpretation Code 0.50-0.90 [facility] eGFR (non-black) mL/min/{1.73_m2} Invalid Interpretation Code >60 [facility] Glucose mass conc 95 mg/dL Invalid Interpretation Code 70-99 [facility] Potassium molar conc 4.8 mmol/L Invalid Interpretation Code 3.7-5.3 [facility] Protein mass conc 7.0 g/dL Invalid Interpretation Code 6.4-8.3 [facility] Sodium molar conc 139 mmol/L Invalid Interpretation Code 135-144 [facility] Urea nitrogen mass conc 22.0 mg/dL Invalid Interpretation Code 8-23 [facility] [employer] [facility] Urea nitrogen mass conc 22 mg/dL 8-23 H ealt [employer] [facility] Otheron 09-26-2017 Cholesterol.total/Judy sterol in HDL mass ratio 3.7 {ratio} Invalid Interpretation Code <5 [facility] [employer] [facility] Immature granulocytes #/vol (Bld) 0 10*3/uL Invalid Interpretation Code 0 [facility] [employer] [facility] Urea nitrogen/Creatinine mass ratio (Bld) 27 Invalid Interpretation Code 9-20 [facility] [employer] [facility] NOT REPORTED Invalid Interpretation Code K-12 [employer] [facility] [employer] 205 Invalid Interpretation Code <150 [facility] 101 Invalid Interpretation Code 0-130 [facility] 53 Invalid Interpretation Code >40 [facility] 57 Invalid Interpretation Code 36-65 [facility] [employer] 0.0 Invalid Interpretation Code 0.0 [facility] [employer] 0.96 Invalid Interpretation Code 0.93-1.70 [facility] [employer] [facility] 226 Invalid Interpretation Code 138-453 [facility] [employer] >60 Invalid Interpretation Code >60 [facility] [employer] [facility] <0.03 Invalid Interpretation Code 0.00-0.30 [facility] [employer] [facility] 1.4 Invalid Interpretation Code 1.0-2.5 [employer] [facility] 140 Invalid Interpretation Code 35-104 [employer] [facility] 1.06 Invalid Interpretation Code 0.30-5.00 [employer] [facility] Cholesterol.total/Judy sterol in HDL mass ratio 3.7 {ratio} Invalid Interpretation Code <5 [facility] Erythrocyte distribution width Ratio (RBC) 13.2 % 11.8-14.4 [facility] Granulocytes/100 WBC (Bld) % Invalid Interpretation Code 0.00-0.30 [facility] Immature granulocytes #/vol (Bld) 0 10*3/uL Invalid Interpretation Code 0 [facility] MCHC mass conc (RBC) 30.5 g/dL 28.4-34.8 [facility] Platelet mean volume Entitic volume (Bld) 11.7 fL 8.1-13.5 [facility] Urea nitrogen/Creatinine mass ratio (Bld) 27 Invalid Interpretation Code 9-20 [facility] NOT REPORTED Invalid Interpretation Code [facility] 4.10 Invalid Interpretation Code 1.50-8.10 [facility] 205 Invalid Interpretation Code <150 [facility] 53 Invalid Interpretation Code >40 [facility] 1.06 Invalid Interpretation Code 0.30-5.00 [facility] 57 Invalid Interpretation Code 36-65 [facility] 0.96 Invalid Interpretation Code 0.93-1.70 [facility] 27 Invalid Interpretation Code 9-20 [facility] 226 Invalid Interpretation Code 138-453 [facility] 0.07 Invalid Interpretation Code 0.00-0.20 [facility] 1.4 Invalid Interpretation Code 1.0-2.5 [facility] 140 Invalid Interpretation Code 35-104 [facility] 101 Invalid Interpretation Code 0-130 [facility] 7.0 Invalid Interpretation Code 6.4-8.3 [facility] 28 Invalid Interpretation Code 5-33 [facility] 19 Invalid Interpretation Code <32 [facility] 0.0 Invalid Interpretation Code 0.0 [facility] >60 Invalid Interpretation Code >60 [facility] <0.03 Invalid Interpretation Code 0.00-0.30 [facility] Otheron 09-17-2017 S. pyogenes Ag IA Ql (Unsp spec) Negative Invalid Interpretation Code [facility] S. pyogenes Ag IA Ql (Unsp spec) Negative Invalid Interpretation Code [facility] Otheron 05-14-2017 2 Invalid Interpretation Code [facility] 2 Invalid Interpretation Code [facility] Metabolic Panelon 04-18-2017 Hemoglobin A1c/Hemoglobin.total mass fraction (Bld) 5.0 % Invalid Interpretation Code < 7 [facility] Hemoglobin A1c/Hemoglobin.total mass fraction (Bld) 5.0 % Invalid Interpretation Code < 7 [facility] Otheron 01-01-2017 Negative Invalid Interpretation Code [facility] 0=No Invalid Interpretation Code [facility] 4 Invalid Interpretation Code [facility] Risk Level 2= 4-6 Invalid Interpretation Code [facility] 0= N/A Invalid Interpretation Code [facility] 0-N/A Invalid Interpretation Code [facility] 1=Controlled Invalid Interpretation Code [facility] 1=Yes Invalid Interpretation Code [facility] 0 Invalid Interpretation Code [facility] Negative Invalid Interpretation Code [facility] 0 Invalid Interpretation Code [facility] 0=No Invalid Interpretation Code [facility] 4 Invalid Interpretation Code [facility] Risk Level 2= 4-6 Invalid Interpretation Code [facility] 0= N/A Invalid Interpretation Code [facility] 0-N/A Invalid Interpretation Code [facility] 1=Controlled Invalid Interpretation Code [facility] 1=Yes Invalid Interpretation Code [facility] Otheron 12-06-2016 Negative Invalid Interpretation Code [facility] Negative Invalid Interpretation Code [facility] Otheron 11-06-2016 Urinalysis specialist review [employer] (Unsp spec) mod leuk, wnl Invalid Interpretation Code [facility] Urinalysis specialist review [employer] (Unsp spec) mod leuk, wnl Invalid Interpretation Code [facility] Otheron 08-21-2016 Not ready Invalid Interpretation Code [facility] No Invalid Interpretation Code [facility] Contemplation Invalid Interpretation Code [facility] Benefits of quitting Invalid Interpretation Code [facility] 10.0 Count Invalid Interpretation Code [facility] 7 Invalid Interpretation Code [facility] Charly Invalid Interpretation Code [facility] Current Invalid Interpretation Code [facility] Not ready Invalid Interpretation Code [facility] No Invalid Interpretation Code [facility] Contemplation Invalid Interpretation Code [facility] Benefits of quitting Invalid Interpretation Code [facility] 10.0 Count Invalid Interpretation Code [facility] 7 Invalid Interpretation Code [facility] Charly Invalid Interpretation Code [facility] Current Invalid Interpretation Code [facility] Metabolic Panelon 06-12-2016 Protein mass conc Provide self-help materials Invalid Interpretation Code [facility] Protein Provide self-help materials Invalid Interpretation Code [facility] Otheron 06-12-2016 Yes Invalid Interpretation Code [facility] Contemplation Invalid Interpretation Code [facility] Strong advice to quit Invalid Interpretation Code [facility] Woman Invalid Interpretation Code [facility] 10.0 Count Invalid Interpretation Code [facility] 7 Invalid Interpretation Code [facility] charly segundo Invalid Interpretation Code [facility] Current Invalid Interpretation Code [facility] Provide self-help materials Invalid Interpretation Code [facility] Yes Invalid Interpretation Code [facility] Contemplation Invalid Interpretation Code [facility] Strong advice to quit Invalid Interpretation Code [facility] Woman Invalid Interpretation Code [facility] 10.0 Count Invalid Interpretation Code [facility] 7 Invalid Interpretation Code [facility] charly segundo Invalid Interpretation Code [facility] Current Invalid Interpretation Code [facility] Otheron 04-10-2016 Pre-contemplation Invalid Interpretation Code [facility] Not Ready Invalid Interpretation Code [facility] Benefits of quitting Invalid Interpretation Code [facility] No Invalid Interpretation Code [facility] Woman Invalid Interpretation Code [facility] 10.0 Count Invalid Interpretation Code [facility] 7 Invalid Interpretation Code [facility] Current Invalid Interpretation Code [facility] Charly Invalid Interpretation Code [facility] Not Ready Invalid Interpretation Code [facility] Pre-contemplation Invalid Interpretation Code [facility] No Invalid Interpretation Code [facility] Benefits of quitting Invalid Interpretation Code [facility] Woman Invalid Interpretation Code [facility] 10.0 Count Invalid Interpretation Code [facility] 7 Invalid Interpretation Code [facility] Current Invalid Interpretation Code [facility] Charly Invalid Interpretation Code [facility] Otheron 03-20-2016 10.0 Count Invalid Interpretation Code [facility] Woman Invalid Interpretation Code [facility] Not Ready Invalid Interpretation Code [facility] No Invalid Interpretation Code [facility] Contemplation Invalid Interpretation Code [facility] Current Invalid Interpretation Code [facility] Charly Purnima Invalid Interpretation Code [facility] 7 Invalid Interpretation Code [facility] Benefits of quitting Invalid Interpretation Code [facility] 10.0 Count Invalid Interpretation Code [facility] Woman Invalid Interpretation Code [facility] Not Ready Invalid Interpretation Code [facility] No Invalid Interpretation Code [facility] Contemplation Invalid Interpretation Code [facility] Current Invalid Interpretation Code [facility] Charly Purnima Invalid Interpretation Code [facility] 7 Invalid Interpretation Code [facility] Benefits of quitting Invalid Interpretation Code [facility] Otheron 12-08-2015 Urinalysis specialist review [employer] (Unsp spec) WNL Lg Justina Invalid Interpretation Code [facility] Urinalysis specialist review [employer] (Unsp spec) WNL Lg Justina Invalid Interpretation Code [facility] Otheron 09-09-2015 Negative Invalid Interpretation Code NEGATIVE [facility] Negative Invalid Interpretation Code NEGATIVE [facility] Otheron 09-08-2015 290 Invalid Interpretation Code [facility] 280 Invalid Interpretation Code [facility] Negative Invalid Interpretation Code [facility] 290 Invalid Interpretation Code [facility] 280 Invalid Interpretation Code [facility] Negative Invalid Interpretation Code [facility] Vital Signs Date Time Vital Sign Value Performing Clinician Facility 04-23-2024 21:19-0500 Body temperature 97.9 [degF] Sami Jasso MD Work Phone: [employer] [facility] 04-23-2024 21:19-0500 Diastolic blood pressure 77 mm[Hg] Sami Jasso MD Work Phone: [employer] [facility] 04-23-2024 21:19-0500 Heart rate 60 /min Sami Jasso MD Work Phone: [employer] [facility] 04-23-2024 21:19-0500 Respiratory rate 16 /min Sami Jasso MD Work Phone: [employer] [facility] 04-23-2024 21:19-0500 SaO2% (BldA) [Mass fraction] 98 % Sami Jasso MD Work Phone: [employer] [facility] 04-23-2024 21:19-0500 Systolic blood pressure 144 mm[Hg] Sami Jasso MD Work Phone: [employer] [facility] 04-23-2024 17:08-0500 Heart rate 58 /min Alberta Medeiros MD Work Phone: [employer] [facility] 04-23-2024 17:08-0500 Respiratory rate 16 /min Alberta Medeiros MD Work Phone: [employer] [facility] 04-23-2024 15:15-0500 Diastolic blood pressure 79 mm[Hg] [facility] 04-23-2024 15:15-0500 Systolic blood pressure 156 mm[Hg] [facility]-23-[facility]24 14:20-0500 SaO2% (BldA) [Mass fraction] 100 % [facility] 04-23-2024 13:42-0500 Body mass index (BMI) [Ratio] 26.57 kg/m2 Alberta [facility] 04-23-2024 13:42-0500 Body temperature 97.9 [degF] Alberta Medeiros MD [facility] 04-23-2024 13:42-0500 Body weight 68.04 kg Alberta Medeiros MD [facility] 02-18-2024 15:05-0400 Body height 161.3 cm Lucy Ofelia DO Work Phone: [facility] 02-18-2024 15:05-0400 Body mass index (BMI) [Ratio] 26.15 kg/m2 Javieropher Ofelia DO Work Phone: [facility] 02-18-2024 15:05-0400 Body weight 68.04 kg Javieropher Ofelia DO Work Phone: [facility] 02-18-2024 15:05-0400 Diastolic blood pressure 88 mm[Hg] Javieropher Ofelia DO Work Phone: [facility] 02-18-2024 15:05-0400 Systolic blood pressure 138 mm[Hg] Javieropher Ofelia DO Work Phone: [facility] 01-27-2024 08:41-0400 Body height 162.56 cm Karla Clark CNP Work Phone: [facility] Work Phone: 01-27-2024 08:41-0400 Body mass index (BMI) [Ratio] 25.6 kg/m2 Karla Clark CNP Work Phone: [facility] Work Phone: 01-27-2024 08:41-0400 Body surface area Derived from formula 1.7 m2 Karla Clark CNP Work Phone: [facility] Work Phone: 01-27-2024 08:41-0400 Body weight 67.59 kg Karla Clark CNP Work Phone: [facility] Work Phone: 01-27-2024 08:41-0400 Diastolic blood pressure 78 mm[Hg] Karla Clark CNP Work Phone: [facility] Work Phone: 01-27-2024 08:41-0400 Heart rate 76 /min Karla Clark CNP Work Phone: [facility] Work Phone: 01-27-2024 08:41-0400 SaO2% (BldA) [Mass fraction] 97 % Karla Clark CNP Work Phone: [facility] Work Phone: 01-27-2024 08:41-0400 Systolic blood pressure 134 mm[Hg] Karla Clark CNP Work Phone: [facility] Work Phone: 12-24-2023 15:30-0400 Body temperature 97.7 [degF] MEMBERSHIP COUNSELOR Karla Clark Work Phone: [facility] 12-24-2023 15:30-0400 Diastolic blood pressure 81 mm[Hg] MEMBERSHIP COUNSELOR Karla Clark Work Phone: [facility] 12-24-2023 15:30-0400 Heart rate 68 /min MEMBERSHIP COUNSELOR Karla Clark Work Phone: [facility] 12-24-2023 15:30-0400 Respiratory rate 16 /min MEMBERSHIP COUNSELORMachelle Clark Work Phone: [facility] 12-24-2023 15:30-0400 SaO2% (BldA) [Mass fraction] 97 % [employer]BERSH[employer] COUNSELORMachelle Clark Work Phone: [facility] 12-24-2023 15:30-0400 Systolic blood pressure 121 mm[Hg] MEMBERSHIP COUNSELOR Karla Clark Work Phone: [facility] 12-23-2023 14:14-0400 Body height 160.02 cm [employer]BERSHIP COUNSELORMachelle Clark Work Phone: [facility] 12-23-2023 08:54-0400 Body weight 67.05 kg [employer]BERSH[employer] COUNSELORMachelle Clark Work Phone: [facility] 12-16-2023 13:02-0400 Body height 160.02 cm [employer]BERSHIP COUNSELORMachelle Clark Work Phone: [facility] 12-16-2023 13:02-0400 Body temperature 98 [degF] MEMBERSHIP COUNSELORMachelle Clark Work Phone: [facility] 12-16-2023 13:02-0400 Body weight 63.5 kg [employer]SH[employer] COUNSELORMachelle Clark Work Phone: [facility] 12-16-2023 13:02-0400 Diastolic blood pressure 75 mm[Hg] MEMBERSHIP COUNSELORMachelle Clark Work Phone: [facility] 12-16-2023 13:02-0400 Heart rate 74 /min [employer]SH[employer] COUNSELORMachelle Clark Work Phone: [facility] 12-16-2023 13:02-0400 Respiratory rate 16 /min [employer]SH[employer] COUNSELORMachelle Clark Work Phone: [facility] 12-16-2023 13:02-0400 SaO2% (BldA) [Mass fraction] 100 % MEMBERSHIP COUNSELOR Karla Amber Work Phone: [facility] 12-16-2023 13:02-0400 Systolic blood pressure 127 mm[Hg] MEMBERSHIP COUNSELOR Karla Clark Work Phone: [facility] 10-04-2023 14:17-0400 Diastolic blood pressure 88 mm[Hg] Karla Clark UPPER INSPECTOR Work Phone: [facility] Comment on above: manual cuff 10-04-2023 14:17-0400 Systolic blood pressure 134 mm[Hg] Karla Clark UPPER INSPECTOR Work Phone: [facility] Comment on above: manual cuff 10-04-2023 13:33-0400 Diastolic blood pressure 93 mm[Hg] Karla Clark UPPER INSPECTOR Work Phone: [facility] Work Phone: 10-04-2023 13:33-0400 Systolic blood pressure 148 mm[Hg] Karla Clark UPPER INSPECTOR Work Phone: [facility] Work Phone: 10-04-2023 13:22-0400 Body height 162.56 cm Karla Clark CNP Work Phone: [facility] Work Phone: 10-04-2023 13:22-0400 Body mass index (BMI) [Ratio] 25.2 kg/m2 Karla Clark CNP Work Phone: [facility] Work Phone: 10-04-2023 13:22-0400 Body surface area Derived from formula 1.7 m2 Karla Clark CNP Work Phone: [facility] Work Phone: 10-04-2023 13:22-0400 Body weight 66.68 kg Karla Clark CNP Work Phone: [facility] Work Phone: 10-04-2023 13:22-0400 Diastolic blood pressure 88 mm[Hg] Karla Clark UPPER INSPECTOR Work Phone: [facility] Work Phone: 10-04-2023 13:22-0400 Heart rate 77 /min Karla Clark CNP Work Phone: [facility] Work Phone: 10-04-2023 13:22-0400 SaO2% (BldA) [Mass fraction] 98 % Karla Clark CNP Work Phone: [facility] Work Phone: 10-04-2023 13:22-0400 Systolic blood pressure 142 mm[Hg] Karla Clark CNP Work Phone: [facility] Work Phone: 08-20-2023 16:49-0400 Diastolic blood pressure 73 mm[Hg] [facility] 08-20-2023 16:49-0400 Heart rate 69 /min [facility] 08-20-2023 16:49-0400 Respiratory rate 69 /min [facility] 08-20-2023 16:49-0400 SaO2% (BldA) [Mass fraction] 98 % [facility] 08-20-2023 16:49-0400 Systolic blood pressure 135 mm[Hg] [facility] 08-20-2023 15:57-0400 Body temperature 97.7 [degF] [facility] 08-20-2023 15:22-0400 Inhaled oxygen flow rate 8 L/min [facility] 08-20-2023 14:26-0400 Body height 161.[address] [facility] 08-20-2023 14:26-0400 Body mass index (BMI) [Ratio] 25.4 kg/m2 [facility] 08-20-2023 14:26-0400 Body weight 66.[address] [facility] 08-20-2023 10:56-0400 Body weight 67.[address] [facility] 08-20-2023 07:30-0400 Body temperature 97.4 [degF] [facility] 08-20-2023 07:30-0400 Diastolic blood pressure 87 mm[Hg] [facility] 08-20-2023 07:30-0400 Heart rate 67 /min [facility] 08-20-2023 07:30-0400 Respiratory rate 18 /min [facility] 08-20-2023 07:30-0400 SaO2% (BldA) [Mass fraction] 99 % [facility] 08-20-2023 07:30-0400 Systolic blood pressure 143 mm[Hg] [facility] 08-19-2023 09:00-0400 Body weight 67.[address] [facility] 08-16-2023 14:21-0400 Body height 161.[address] [facility] 08-15-2023 19:27-0400 Body temperature 97.2 [degF] [facility] 08-15-2023 19:27-0400 Diastolic blood pressure 63 mm[Hg] [facility] 08-15-2023 19:27-0400 Heart rate 71 /min [facility] 08-15-2023 19:27-0400 Respiratory rate 20 /min [facility] 08-15-2023 19:27-0400 SaO2% (BldA) [Mass fraction] 99 % [facility] 08-15-2023 19:27-0400 Systolic blood pressure 133 mm[Hg] [facility] 08-15-2023 15:10-0400 Body height 160.[address] [facility] 08-15-2023 15:10-0400 Body weight 66.[address] [facility] 05-22-2023 10:50-0500 Body height 162.56 cm Karla Clark CNP Work Phone: [facility] 05-22-2023 10:50-0500 Body mass index (BMI) [Ratio] 24.8 kg/m2 Karla Clark CNP Work Phone: [facility] 05-22-2023 10:50-0500 Body surface area Derived from formula 1.7 m2 Karla Clark CNP Work Phone: [facility] 05-22-2023 10:50-0500 Body weight 65.59 kg Karla Clark UPPER INSPECTOR Work Phone: [facility] 05-22-2023 10:50-0500 Diastolic blood pressure 89 mm[Hg] Karla Clark UPPER INSPECTOR Work Phone: [facility] 05-22-2023 10:50-0500 Heart rate 75 /min Karla Clark UPPER INSPECTOR Work Phone: [facility] 05-22-2023 10:50-0500 SaO2% (BldA) [Mass fraction] 95 % Karla Clark UPPER INSPECTOR Work Phone: [facility] 05-22-2023 10:50-0500 Systolic blood pressure 138 mm[Hg] Karla Clark UPPER INSPECTOR Work Phone: [facility] 03-28-2023 07:30-0400 Body temperature 97.9 [degF] MEMBERSHIP COUNSELOR Karla Clark Work Phone: [facility] 03-28-2023 07:30-0400 Diastolic blood pressure 71 mm[Hg] MEMBERSHIP COUNSELOR Karla Clark Work Phone: [facility] 03-28-2023 07:30-0400 Heart rate 95 /min MEMBERSHIP COUNSELOR Karla Clark Work Phone: [facility] 03-28-2023 07:30-0400 Respiratory rate 18 /min MEMBERSHIP COUNSELOR Karla Clark Work Phone: [facility] 03-28-2023 07:30-0400 SaO2% (BldA) [Mass fraction] 95 % MEMBERSHIP COUNSELOR Karla Clark Work Phone: [facility] 03-28-2023 07:30-0400 Systolic blood pressure 121 mm[Hg] MEMBERSHIP COUNSELOR Karla Amber Work Phone: [facility] 03-27-2023 11:00-0400 Body height 160.02 cm MEMBERSHIP COUNSELOR Karlajulius Floresen Work Phone: [facility] 03-26-2023 00:59-0400 Body weight 63.5 kg MEMBERSHIP COUNSELOR Karla Clark Work Phone: [facility] 03-15-2023 07:30-0400 Body temperature 97.9 [degF] MEMBERSHIP COUNSELOR Karla Clark Work Phone: [facility] 03-15-2023 07:30-0400 Diastolic blood pressure 72 mm[Hg] MEMBERSHIP COUNSELOR Karla Clark Work Phone: [facility] 03-15-2023 07:30-0400 Heart rate 68 /min MEMBERSHIP COUNSELOR Karla Clark Work Phone: [facility] 03-15-2023 07:30-0400 Respiratory rate 16 /min MEMBERSHIP COUNSELOR Karla Clark Work Phone: [facility] 03-15-2023 07:30-0400 SaO2% (BldA) [Mass fraction] 100 % MEMBERSHIP COUNSELOR Karla Clark Work Phone: [facility] 03-15-2023 07:30-0400 Systolic blood pressure 136 mm[Hg] MEMBERSHIP COUNSELOR Karla Clark Work Phone: [facility] 03-12-2023 14:52-0400 Body height 160.02 cm MEMBERSHIP COUNSELORMachelle Clark Work Phone: [facility] 03-12-2023 00:34-0400 Body weight 63.5 kg MEMBERSHIP COUNSELOR Karla Clark Work Phone: [facility] 02-28-2023 09:35-0400 Body height 162.56 cm Karla Amber UPPER INSPECTOR Work Phone: [facility] 02-28-2023 09:35-0400 Body mass index (BMI) [Ratio] 24 kg/m2 Karla Clark UPPER INSPECTOR Work Phone: [facility] 02-28-2023 09:35-0400 Body surface area Derived from formula 1.7 m2 Karla Clark UPPER INSPECTOR Work Phone: [facility] 02-28-2023 09:35-0400 Body weight 63.41 kg Karla Clark CNP Work Phone: [facility] 02-28-2023 09:35-0400 Diastolic blood pressure 76 mm[Hg] Karla Clark CNP Work Phone: [facility] 02-28-2023 09:35-0400 Heart rate 83 /min Karla Clark CNP Work Phone: [facility] 02-28-2023 09:35-0400 SaO2% (BldA) [Mass fraction] 94 % Karla Clark CNP Work Phone: [facility] 02-28-2023 09:35-0400 Systolic blood pressure 111 mm[Hg] Karla Clark CNP Work Phone: [facility] 12-12-2022 13:45-0400 Body height Emory Adame Other [facility] Other 12-12-2022 13:45-0400 Body mass index (BMI) [Ratio] 25.6 kg/m2 Emory Adame Other [facility] Other 12-12-2022 13:45-0400 Body weight 63.5 kg Emory Abbottley Other [facility] Other 11-19-2022 09:15-0400 Body height 162.56 cm Karla Clark CNP Work Phone: [facility] 11-19-2022 09:15-0400 Body mass index (BMI) [Ratio] 23.6 kg/m2 Karla Clark CNP Work Phone: [facility] 11-19-2022 09:15-0400 Body surface area Derived from formula 1.7 m2 Karla Clark CNP Work Phone: [facility] 11-19-2022 09:15-0400 Body temperature 97.6 [degF] Karla Clark CNP Work Phone: [facility] 11-19-2022 09:15-0400 Body weight 62.32 kg Karla Clark CNP Work Phone: [facility] 11-19-2022 09:15-0400 Diastolic blood pressure 60 mm[Hg] Karla Clark CNP Work Phone: [facility] 11-19-2022 09:15-0400 Heart rate 94 /min Karla Clark CNP Work Phone: [facility] 11-19-2022 09:15-0400 SaO2% (BldA) [Mass fraction] 97 % Karla Clark CNP Work Phone: [facility] 11-19-2022 09:15-0400 Systolic blood pressure 133 mm[Hg] Karla Clark CNP Work Phone: [facility] 09-18-2022 13:57-0400 Body height 162.56 cm Karla Clark CNP Work Phone: [facility] Work Phone: 09-18-2022 13:57-0400 Body mass index (BMI) [Ratio] 24.9 kg/m2 Karla Clark CNP Work Phone: [facility] Work Phone: 09-18-2022 13:57-0400 Body surface area Derived from formula 1.7 m2 Karla Clark CNP Work Phone: [facility] Work Phone: 09-18-2022 13:57-0400 Body temperature 97.6 [degF] Karla Clark CNP Work Phone: [facility] Work Phone: 09-18-2022 13:57-0400 Body weight 65.68 kg Karla Clark CNP Work Phone: [facility] Work Phone: 09-18-2022 13:57-0400 Diastolic blood pressure 74 mm[Hg] Karla Clark CNP Work Phone: [facility] Work Phone: 09-18-2022 13:57-0400 Heart rate 80 /min Karla Clark CNP Work Phone: [facility] Work Phone: 09-18-2022 13:57-0400 SaO2% (BldA) [Mass fraction] 98 % Karla Clark CNP Work Phone: [facility] Work Phone: 09-18-2022 13:57-0400 Systolic blood pressure 142 mm[Hg] Karla Clark CNP Work Phone: [facility] Work Phone: 09-14-2022 15:10-0400 Body temperature 98.6 [degF] PHYSICIAN NO [facility] 09-14-2022 15:10-0400 Diastolic blood pressure 75 mm[Hg] PHYSICIAN NO [facility] 09-14-2022 15:10-0400 Heart rate 81 /min PHYSICIAN NO [facility] 09-14-2022 15:10-0400 Respiratory rate 20 /min PHYSICIAN NO [facility] 09-14-2022 15:10-0400 SaO2% (BldA) [Mass fraction] 95 % PHYSICIAN NO [facility] 09-14-2022 15:10-0400 Systolic blood pressure 144 mm[Hg] PHYSICIAN [facility] 09-14-2022 06:43-0400 Body weight 72.6 kg PHYSICIAN NO [facility] 09-14-2022 00:00-0400 Inhaled oxygen flow rate 1 L/min PHYSICIAN NO [facility] 09-13-2022 08:33-0400 Body height 157.48 cm PHYSICIAN NO [facility] 09-13-2022 08:33-0400 Body mass index (BMI) [Ratio] 26.2 kg/m2 PHYSICIAN NO [facility] 09-10-2022 09:45-0400 Body height Emory Adame Other [facility] Other 09-10-2022 09:45-0400 Body mass index (BMI) [Ratio] 26.15 kg/m2 Emory Adame Other [facility] Other 09-10-2022 09:45-0400 Body weight 64.86 kg Emory Adame Other [facility] Other 08-27-2022 08:26-0400 Body height 162.56 cm Karla Clark CNP Work Phone: [facility] Work Phone: 08-27-2022 08:26-0400 Body mass index (BMI) [Ratio] 24.6 kg/m2 Karla Clark CNP Work Phone: [facility] Work Phone: 08-27-2022 08:26-0400 Body surface area Derived from formula 1.7 m2 Karla Clark CNP Work Phone: [facility] Work Phone: 08-27-2022 08:26-0400 Body temperature 97 [degF] Karla Clark CNP Work Phone: [facility] Work Phone: 08-27-2022 08:26-0400 Body weight 65.14 kg Karla Clark CNP Work Phone: [facility] Work Phone: 08-27-2022 08:26-0400 Diastolic blood pressure 73 mm[Hg] Krala Clark CNP Work Phone: [facility] Work Phone: 08-27-2022 08:26-0400 Heart rate 66 /min Karla Clark CNP Work Phone: [facility] Work Phone: 08-27-2022 08:26-0400 SaO2% (BldA) [Mass fraction] 96 % Karla Clark CNP Work Phone: [facility] Work Phone: 08-27-2022 08:26-0400 Systolic blood pressure 115 mm[Hg] Karla Clark CNP Work Phone: [facility] Work Phone: 06-18-2022 11:23-0500 Body height 162.56 cm Karla Clark CNP Work Phone: [facility] Work Phone: 06-18-2022 11:23-0500 Body mass index (BMI) [Ratio] 24.9 kg/m2 Karla Clark CNP Work Phone: [facility] Work Phone: 06-18-2022 11:23-0500 Body surface area Derived from formula 1.7 m2 Karla Clark CNP Work Phone: [facility] Work Phone: 06-18-2022 11:23-0500 Body temperature 97.6 [degF] Karla Clark CNP Work Phone: [facility] Work Phone: 06-18-2022 11:23-0500 Body weight 65.86 kg Karla Clark CNP Work Phone: [facility] Work Phone: 06-18-2022 11:23-0500 Diastolic blood pressure 78 mm[Hg] Karla Clark CNP Work Phone: [facility] Work Phone: 06-18-2022 11:23-0500 Heart rate 62 /min Karla Clark CNP Work Phone: [facility] Work Phone: 06-18-2022 11:23-0500 SaO2% (BldA) [Mass fraction] 98 % Karla Clark CNP Work Phone: [facility] Work Phone: 06-18-2022 11:23-0500 Systolic blood pressure 125 mm[Hg] Karla Clark CNP Work Phone: [facility] Work Phone: 03-20-2022 13:56-0400 Body height 162.56 cm Karla Clark CNP Work Phone: [facility] Work Phone: 03-20-2022 13:56-0400 Body mass index (BMI) [Ratio] 24.4 kg/m2 Karla Clark CNP Work Phone: [facility] Work Phone: 03-20-2022 13:56-0400 Body surface area Derived from formula 1.7 m2 Karla Clark CNP Work Phone: [facility] Work Phone: 03-20-2022 13:56-0400 Body temperature 99.5 [degF] Karla Clark CNP Work Phone: [facility] Work Phone: 03-20-2022 13:56-0400 Body weight 64.41 kg Karla Clark CNP Work Phone: [facility] Work Phone: 03-20-2022 13:56-0400 Diastolic blood pressure 82 mm[Hg] Karla Clark CNP Work Phone: [facility] Work Phone: 03-20-2022 13:56-0400 Heart rate 69 /min Karla Clark CNP Work Phone: [facility] Work Phone: 03-20-2022 13:56-0400 Heart Rate Rhythm 1 1 Karla Clark CNP Work Phone: [facility] Work Phone: 03-20-2022 13:56-0400 SaO2% (BldA) [Mass fraction] 98 % Karla Clark CNP Work Phone: [facility] Work Phone: 03-20-2022 13:56-0400 Systolic blood pressure 126 mm[Hg] Karla Clark CNP Work Phone: [facility] Work Phone: 12-20-2021 14:07-0400 Body height 162.56 cm Karla Clakr CNP Work Phone: [facility] Work Phone: 12-20-2021 14:07-0400 Body mass index (BMI) [Ratio] 24.5 kg/m2 Karla Clark CNP Work Phone: [facility] Work Phone: 12-20-2021 14:07-0400 Body surface area Derived from formula 1.7 m2 Karla Clark CNP Work Phone: [facility] Work Phone: 12-20-2021 14:07-0400 Body temperature 97.6 [degF] Karla Clark CNP Work Phone: [facility] Work Phone: 12-20-2021 14:07-0400 Body weight 64.86 kg Karla Clark CNP Work Phone: [facility] Work Phone: 12-20-2021 14:07-0400 Diastolic blood pressure 80 mm[Hg] Karla Clark CNP Work Phone: [facility] Work Phone: 12-20-2021 14:07-0400 Heart rate 92 /min Karla Clark CNP Work Phone: [facility] Work Phone: 12-20-2021 14:07-0400 SaO2% (BldA) [Mass fraction] 98 % Karla Clark CNP Work Phone: [facility] Work Phone: 12-20-2021 14:07-0400 Systolic blood pressure 130 mm[Hg] Karla Clark CNP Work Phone: [facility] Work Phone: 11-03-2021 10:00-0400 Body height 162.56 cm Karla Clark CNP Work Phone: [facility] Work Phone: 11-03-2021 10:00-0400 Body mass index (BMI) [Ratio] 24.3 kg/m2 Karla Clark CNP Work Phone: [facility] Work Phone: 11-03-2021 10:00-0400 Body surface area Derived from formula 1.69 m2 Karla Clark CNP Work Phone: [facility] Work Phone: 11-03-2021 10:00-0400 Body surface area Derived from formula 1.7 m2 Karla Clark CNP Work Phone: [facility] Work Phone: 11-03-2021 10:00-0400 Body temperature 97.6 [degF] Karla Clark CNP Work Phone: [facility] Work Phone: 11-03-2021 10:00-0400 Body weight 64.14 kg Karla Clark CNP Work Phone: [facility] Work Phone: 11-03-2021 10:00-0400 Diastolic blood pressure 80 mm[Hg] Karla Clark CNP Work Phone: [facility] Work Phone: 11-03-2021 10:00-0400 Heart rate 70 /min Karla Clark CNP Work Phone: [facility] Work Phone: 11-03-2021 10:00-0400 SaO2% (BldA) [Mass fraction] 98 % Karla Clark CNP Work Phone: [facility] Work Phone: 11-03-2021 10:00-0400 Systolic blood pressure 126 mm[Hg] Karla Clark CNP Work Phone: [facility] Work Phone: 07-28-2021 13:20-0500 Body height 162.56 cm Karla Clark CNP Work Phone: [facility] Work Phone: 07-28-2021 13:20-0500 Body mass index (BMI) [Ratio] 24.4 kg/m2 Karla Clark CNP Work Phone: [facility] Work Phone: 07-28-2021 13:20-0500 Body surface area Derived from formula 1.69 m2 Karla Clark CNP Work Phone: [facility] Work Phone: 07-28-2021 13:20-0500 Body surface area Derived from formula 1.7 m2 Karla Clark CNP Work Phone: [facility] Work Phone: 07-28-2021 13:20-0500 Body temperature 98.6 [degF] Karla Clark CNP Work Phone: [facility] Work Phone: 07-28-2021 13:20-0500 Body weight 64.59 kg Karla Clark CNP Work Phone: [facility] Work Phone: 07-28-2021 13:20-0500 Diastolic blood pressure 82 mm[Hg] Karla Clark CNP Work Phone: [facility] Work Phone: 07-28-2021 13:20-0500 Heart rate 80 /min Karla Clark CNP Work Phone: [facility] Work Phone: 07-28-2021 13:20-0500 Respiratory rate 18 /min Karla Clark CNP Work Phone: [facility] Work Phone: 07-28-2021 13:20-0500 SaO2% (BldA) [Mass fraction] 98 % Karla Clark CNP Work Phone: [facility] Work Phone: 07-28-2021 13:20-0500 Systolic blood pressure 134 mm[Hg] Karla Clark CNP Work Phone: [facility] Work Phone: 05-08-2021 10:04-0500 Body height 162.56 cm Karla Clark CNP Work Phone: [facility] Work Phone: 05-08-2021 10:04-0500 Body mass index (BMI) [Ratio] 24.2 kg/m2 Karla Clark CNP Work Phone: [facility] Work Phone: 05-08-2021 10:04-0500 Body surface area Derived from formula 1.69 m2 Karla Clark CNP Work Phone: [facility] Work Phone: 05-08-2021 10:04-0500 Body surface area Derived from formula 1.7 m2 Karla Clark CNP Work Phone: [facility] Work Phone: 05-08-2021 10:04-0500 Body temperature 99.1 [degF] Karla Clark CNP Work Phone: [facility] Work Phone: 05-08-2021 10:04-0500 Body weight 64.05 kg Karla Clark CNP Work Phone: [facility] Work Phone: 05-08-2021 10:04-0500 Diastolic blood pressure 78 mm[Hg] Karla Clark CNP Work Phone: [facility] Work Phone: 05-08-2021 10:04-0500 Heart rate 69 /min Karla Clark CNP Work Phone: [facility] Work Phone: 05-08-2021 10:04-0500 SaO2% (BldA) [Mass fraction] 99 % Karla Clark CNP Work Phone: [facility] Work Phone: 05-08-2021 10:04-0500 Systolic blood pressure 132 mm[Hg] Karla Clark CNP Work Phone: [facility] Work Phone: 06-17-2020 09:49-0500 BMI (Body Mass Index) 24.9 kg/m2 [facility] Work Phone: 06-17-2020 09:49-0500 Body Temperature 97.3 [degF] [facility] Work Phone: 06-17-2020 09:49-0500 Body weight 65.86 kg [facility] Work Phone: 06-17-2020 09:49-0500 BP Diastolic 70 mm[Hg] [facility] Work Phone: 06-17-2020 09:49-0500 BP Systolic 100 mm[Hg] [facility] Work Phone: 06-17-2020 09:49-0500 BSA (Body Surface Area) 1.71 m2 [facility] Work Phone: 06-17-2020 09:49-0500 Height 162.56 cm [facility] Work Phone: 06-17-2020 09:49-0500 Pulse (Heart Rate) 79 /min [facility] Work Phone: 06-17-2020 09:49-0500 Pulse Oximetry 97 % [facility] Work Phone: 06-17-2020 09:49-0500 Respiratory Rate 18 /min [facility] Work Phone: 06-17-2020 09:49-0500 SaO2% (BldA) [Mass fraction] 97 % [facility] Work Phone: [facility] Work Phone: 06-08-2020 10:39-0500 BP Diastolic 72 mm[Hg] [place] 06-08-2020 10:39-0500 BP Systolic 137 mm[Hg] [facility] [place] 06-08-2020 10:39-0500 Pulse (Heart Rate) 84 /min [facility] 06-08-2020 10:39-0500 Pulse Oximetry 98 % [place] 06-08-2020 10:39-0500 Respiratory Rate 12 /min [facility] 06-06-2020 13:08-0500 BMI (Body Mass Index) 25 kg/m2 [facility] Work Phone: 06-06-2020 13:08-0500 Body Temperature 96.2 [degF] [facility] Work Phone: 06-06-2020 13:08-0500 Body weight 65.95 kg [facility] Work Phone: 06-06-2020 13:08-0500 BP Diastolic 86 mm[Hg] [facility] Work Phone: 06-06-2020 13:08-0500 BP Systolic 128 mm[Hg] [facility] Work Phone: 06-06-2020 13:08-0500 BSA (Body Surface Area) 1.71 m2 [facility] Work Phone: 06-06-2020 13:08-0500 Height 162.56 cm [facility] Work Phone: 06-06-2020 13:08-0500 Respiratory Rate 18 /min [facility] Work Phone: 05-06-2020 14:04-0500 BMI (Body Mass Index) 25.2 kg/m2 [facility] Work Phone: 05-06-2020 14:04-0500 Body weight 66.68 kg [facility] Work Phone: 05-06-2020 14:04-0500 BP Diastolic 70 mm[Hg] [facility] Work Phone: 05-06-2020 14:04-0500 BP Systolic 116 mm[Hg] [facility] Work Phone: 05-06-2020 14:04-0500 BSA (Body Surface Area) 1.72 m2 [facility] Work Phone: 05-06-2020 14:04-0500 Height 162.56 cm [facility] Work Phone: 05-06-2020 14:04-0500 Pulse (Heart Rate) 72 /min [facility] Work Phone: 05-06-2020 14:04-0500 Pulse Oximetry 96 % [facility] Work Phone: 03-31-2020 14:22-0400 BMI (Body Mass Index) 25.3 kg/m2 [facility] Work Phone: 03-31-2020 14:22-0400 Body Temperature 97.7 [degF] [facility] Work Phone: 03-31-2020 14:22-0400 Body weight 66.95 kg [facility] Work Phone: 03-31-2020 14:22-0400 BP Diastolic 90 mm[Hg] [facility] Work Phone: 03-31-2020 14:22-0400 BP Systolic 142 mm[Hg] [facility] Work Phone: 03-31-2020 14:22-0400 BSA (Body Surface Area) 1.72 m2 [facility] Work Phone: 03-31-2020 14:22-0400 Height 162.56 cm [facility] Work Phone: 03-31-2020 14:22-0400 [facility] Work Phone: 03-31-2020 14:22-0400 Pulse Oximetry 97 % [facility] Work Phone: 03-31-2020 14:22-0400 Respiratory Rate 18 /min [facility] Work Phone: 03-14-2020 14:01-0400 BMI (Body Mass Index) 25.2 kg/m2 [facility] Work [facility]: 03-14-2020 14:01-0400 Body Temperature 96.3 [degF] [facility] Work Phone: 03-14-2020 14:01-0400 Body weight 66.59 kg [facility] Work Phone: 03-14-2020 14:01-0400 BP Diastolic 86 mm[Hg] [facility] Work Phone: 03-14-2020 14:01-0400 BP Systolic 130 mm[Hg] [facility] Work Phone: 03-14-2020 14:01-0400 BSA (Body Surface Area) 1.72 m2 [facility] Work Phone: 03-14-2020 14:010400 Height 162.56 cm [facility] Work Phone: 03-14-2020 14:01-0400 Pulse (Heart Rate) 83 /min [facility] Work Phone: 03-14-2020 14:01-0400 Respiratory Rate 18 /min [facility] Work Phone: 02-26-2020 11:04-0400 BMI (Body Mass Index) 25.8 kg/m2 [facility] Work Phone: 02-26-2020 11:04-0400 Body Temperature 98.1 [degF] [facility] Work Phone: 02-26-2020 11:04-0400 Body weight 65.95 kg [facility] Work Phone: 02-26-2020 11:04-0400 BP Diastolic 90 mm[Hg] [facility] Work Phone: 02-26-2020 11:04-0400 BP Systolic 144 mm[Hg] [facility] Work Phone: 02-26-2020 11:04-0400 BSA (Body Surface Area) 1.69 m2 [facility] Work Phone: 02-26-2020 11:04-0400 Height 160.02 cm [facility] Work Phone: 02-26-2020 11:04-0400 Pulse (Heart Rate) 62 /min [facility] Work Phone: 02-26-2020 11:04-0400 Pulse Oximetry 95 % [facility] Work Phone: 02-26-2020 11:04-0400 Respiratory Rate 18 /min [facility] Work Phone: 11-19-2019 09:03-0400 BMI (Body Mass Index) 27.5 kg/m2 [facility] Work Phone: Comment on above: self 11-19-2019 09:03-0400 Body weight 70.31 kg [facility] Work Phone: Comment on above: self 11-19-2019 09:03-0400 BSA (Body Surface Area) 1.74 m2 [facility] Work Phone: Comment on above: self 11-19-2019 09:03-0400 Height 160.02 cm [facility] Work Phone: Comment on above: self 07-23-2019 14:03-0500 BMI (Body Mass Index) 27 kg/m2 [facility] Work Phone: 07-23-2019 14:03-0500 Body Temperature 99.9 [degF] [facility] Work Phone: 07-23-2019 14:03-0500 Body weight 69.04 kg [facility] Work Phone: 07-23-2019 14:03-0500 BP Diastolic 82 mm[Hg] [facility] Work Phone: 07-23-2019 14:03-0500 BP Systolic 110 mm[Hg] [facility] Work Phone: 07-23-2019 14:03-0500 BSA (Body Surface Area) 1.72 m2 [facility] Work Phone: 07-23-2019 14:03-0500 Height 160.02 cm [facility] Work Phone: 07-23-2019 14:03-0500 Pulse (Heart Rate) 80 /min [facility] Work Phone: 07-23-2019 14:03-0500 Pulse Oximetry 96 % [facility] Work Phone: 07-23-2019 14:03-0500 Respiratory Rate 18 /min [facility] Work Phone: 06-05-2019 13:43-0500 BMI (Body Mass Index) 27.2 kg/m2 [facility] Work Phone: 06-05-2019 13:43-0500 Body weight 69.76 kg [facility] Work Phone: 06-05-2019 13:43-0500 BP Diastolic 80 mm[Hg] [facility] Work Phone: 06-05-2019 13:43-0500 BP Systolic 118 mm[Hg] [facility] Work Phone: 06-05-2019 13:43-0500 BSA (Body Surface Area) 1.73 m2 [facility] Work Phone: 06-05-2019 13:43-0500 Height 160.02 cm [facility] Work Phone: 06-05-2019 13:43-0500 Pulse (Heart Rate) 73 /min [facility] Work Phone: 06-05-2019 13:43-0500 Pulse Oximetry 96 % [facility] Work Phone: 04-23-2019 13:59-0500 BMI (Body Mass Index) 27.1 kg/m2 [facility] Work Phone: 04-23-2019 13:59-0500 Body weight 69.4 kg [facility] Work Phone: 04-23-2019 13:59-0500 BP Diastolic 76 mm[Hg] [facility] Work Phone: 04-23-2019 13:59-0500 BP Systolic 124 mm[Hg] [facility] Work Phone: 04-23-2019 13:59-0500 BSA (Body Surface Area) 1.73 m2 [facility] Work Phone: 04-23-2019 13:59-0500 Height 160.02 cm [facility] Work Phone: 04-23-2019 13:59-0500 Pulse (Heart Rate) 58 /min [facility] Work Phone: 04-23-2019 13:59-0500 Pulse Oximetry 97 % [facility] Work Phone: 04-15-2019 10:33-0500 BMI (Body Mass Index) 28 kg/m2 [facility] Work Phone: 04-15-2019 10:33-0500 Body Temperature 99.3 [degF] [facility] Work Phone: 04-15-2019 10:33-0500 Body weight 71.76 kg [facility] Work Phone: 04-15-2019 10:33-0500 BP Diastolic 84 mm[Hg] [facility] Work Phone: 04-15-2019 10:33-0500 BP Systolic 120 mm[Hg] [facility] Work Phone: 04-15-2019 10:33-0500 BSA (Body Surface Area) 1.75 m2 [facility] Work Phone: 04-15-2019 10:33-0500 Height 160.02 cm [facility] Work Phone: 04-15-2019 10:33-0500 [facility] 83 /[facility] Work Phone: 04-15-2019 10:33-0500 Pulse Oximetry 97 % [facility] Work Phone: 04-10-2019 12:10-0500 BP Diastolic 85 mm[Hg] [facility] [place] 04-10-2019 12:10-0500 BP Systolic 128 mm[Hg] [facility] [place] 04-10-2019 12:10-0500 Pulse (Heart Rate) 83 /min [facility] [place] 04-10-2019 12:10-0500 Pulse Oximetry 99 % [facility] [place] 04-10-2019 12:10-0500 Respiratory Rate 12 /min [facility] 03-05-2019 09:25-0400 BMI (Body Mass Index) 27.7 kg/m2 [facility] Work Phone: 03-05-2019 09:25-0400 Body Temperature 96.5 [degF] [facility] Work Phone: 03-05-2019 09:25-0400 Body weight 70.94 kg [facility] Work Phone: 03-05-2019 09:25-0400 BP Diastolic 86 mm[Hg] [facility] Work Phone: 03-05-2019 09:25-0400 BP Systolic 110 mm[Hg] [facility] Work Phone: 03-05-2019 09:25-0400 BSA (Body Surface Area) 1.74 m2 [facility] Work Phone: 03-05-2019 09:25-0400 Height 160.02 cm [facility] Work Phone: 03-05-2019 09:25-0400 Pulse (Heart Rate) 86 /min [facility] Work Phone: 03-05-2019 09:25-0400 Pulse Oximetry 97 % [facility] Work Phone: 03-05-2019 09:25-0400 Respiratory Rate 18 /min [facility] Work Phone: 12-22-2018 10:11-0400 BMI (Body Mass Index) 28.4 kg/m2 [facility] Work Phone: 12-22-2018 10:11-0400 Body Temperature 98.2 [degF] [facility] Work Phone: 12-22-2018 10:11-0400 Body weight 72.85 kg [facility] Work Phone: 12-22-2018 10:11-0400 BP Diastolic 80 mm[Hg] [facility] Work Phone: 12-22-2018 10:11-0400 BP Systolic 110 mm[Hg] [facility] Work Phone: 12-22-2018 10:11-0400 BSA (Body Surface Area) 1.76 m2 [facility] Work Phone: 12-22-2018 10:11-0400 Height 160.02 cm [facility] Work Phone: 12-22-2018 10:11-0400 Pulse (Heart Rate) 67 /min [facility] Work Phone: 12-22-2018 10:11-0400 Pulse Oximetry 94 % [facility] Work Phone: 12-22-2018 10:11-0400 Respiratory Rate 14 /min [facility] Work Phone: 11-06-2018 13:55-0400 BMI (Body Mass Index) 28.7 kg/m2 [facility] Work Phone: 11-06-2018 13:55-0400 Body Temperature 97.8 [degF] [facility] Work Phone: 11-06-2018 13:55-0400 Body weight 73.48 kg [facility] Work Phone: 11-06-2018 13:55-0400 BP Di[facility] 76 mm[Hg] [facility] Work Phone: 11-06-2018 13:55-0400 BP Systolic 110 mm[Hg] [facility] Work Phone: 11-06-2018 13:55-0400 BSA (Body Surface Area) 1.77 m2 [facility] Work Phone: 11-06-2018 13:55-0400 Height 160.02 cm [facility] Work Phone: 11-06-2018 13:55-0400 Pulse (Heart Rate) 80 /min [facility] Work Phone: 11-06-2018 13:55-0400 Pulse Oximetry 98 % [facility] Work Phone: 11-06-2018 13:55-0400 Respiratory Rate 22 /min [facility] Work Phone: 09-11-2018 10:25-0400 Body height 160.02 cm Karla Clark [facility] Work Phone: [facility] Work Phone: 09-11-2018 10:25-0400 Body mass index (BMI) [Ratio] 29.6 kg/m2 Karla Calrk [facility] Work Phone: [facility] Work Phone: 09-11-2018 10:25-0400 Body surface area Derived from formula 1.79 m2 Karla Clark [facility] Work Phone: [facility] Work Phone: 09-11-2018 10:25-0400 Body temperature 97.4 [degF] Karla Clark [facility] Work Phone: [facility] Work Phone: 09-11-2018 10:25-0400 Body weight 75.75 kg Karla Clark CNP Work Phone: [facility] Work Phone: 09-11-2018 10:25-0400 Diastolic blood pressure 76 mm[Hg] Karla Clark CNP Work Phone: [facility] Work Phone: 09-11-2018 10:25-0400 Heart rate 78 /min Karla Clark CNP Work Phone: [facility] Work Phone: 09-11-2018 10:25-0400 Pulse Oximetry 99 % Karla Clark [facility] Work Phone: 09-11-2018 10:25-0400 Respiratory rate 22 /min Karla Clark CNP Work Phone: [facility] Work Phone: 09-11-2018 10:25-0400 SaO2% (BldA) [Mass fraction] 99 % Karla Clark CNP Work Phone: [facility] Work Phone: 09-11-2018 10:25-0400 Systolic blood pressure 120 mm[Hg] Karla Clark CNP Work Phone: [facility] Work Phone: 09-04-2018 13:24-0400 Body height 160.02 cm Karla Clark CNP Work Phone: [facility] Work Phone: 09-04-2018 13:24-0400 Body mass index (BMI) [Ratio] 29.8 kg/m2 Karla Clark CNP Work Phone: [facility] Work Phone: 09-04-2018 13:24-0400 Body surface area Derived from formula 1.8 m2 Karla Clark CNP Work Phone: [facility] Work Phone: 09-04-2018 13:24-0400 Body temperature 98.3 [degF] Karla Clark CNP Work Phone: [facility] Work Phone: 09-04-2018 13:24-0400 Body weight 76.3 kg Karla Clark CNP Work Phone: [facility] Work Phone: 09-04-2018 13:24-0400 Diastolic blood pressure 90 mm[Hg] Karla Clark CNP Work Phone: [facility] Work Phone: 09-04-2018 13:24-0400 Heart rate 86 /min Karla Clark CNP Work Phone: [facility] Work Phone: 09-04-2018 13:24-0400 Inhaled oxygen concentration 21 % Krala Clark CNP Work Phone: [facility] Work Phone: 09-04-2018 13:24-0400 Inhaled oxygen flow rate 0 L/min Karla Clark CNP Work Phone: [facility] Work Phone: 09-04-2018 13:24-0400 Respiratory rate 20 /min Karla Clark CNP Work Phone: [facility] Work Phone: 09-04-2018 13:24-0400 Systolic blood pressure 146 mm[Hg] Karla Clark CNP Work Phone: [facility] Work Phone: 07-31-2018 13:37-0500 Body height 160.02 cm Karla Clark CNP Work Phone: [facility] Work Phone: 07-31-2018 13:37-0500 Body mass index (BMI) [Ratio] 29.9 kg/m2 Karla Clark CNP Work Phone: [facility] Work Phone: 07-31-2018 13:37-0500 Body surface area Derived from formula 1.8 m2 Karla Clark CNP Work Phone: [facility] Work Phone: 07-31-2018 13:37-0500 Body temperature 97.9 [degF] Karla Clark CNP Work Phone: [facility] Work Phone: 07-31-2018 13:37-0500 Body weight 76.66 kg Karla Clark CNP Work Phone: [facility] Work Phone: 07-31-2018 13:37-0500 Diastolic blood pressure 74 mm[Hg] Karla Clark CNP Work Phone: [facility] Work Phone: 07-31-2018 13:37-0500 Heart rate 51 /min Karla Clark CNP Work Phone: [facility] Work Phone: 07-31-2018 13:37-0500 Pulse Oximetry 100 % Karla Amber [facility] Work Phone: 07-31-2018 13:37-0500 Respiratory rate 22 /min Karla Clark CNP Work Phone: [facility] Work Phone: 07-31-2018 13:37-0500 SaO2% (BldA) [Mass fraction] 100 % Karla Clark CNP Work Phone: [facility] Work Phone: 07-31-2018 13:37-0500 Systolic blood pressure 122 mm[Hg] Karla Clark CNP Work Phone: [facility] Work Phone: 05-08-2018 17:00-0500 BMI (Body Mass Index) 29.94 kg/m2 Karla Clark [facility] 05-08-2018 17:00-0500 Body Temperature 97.9 [degF] [facility] 05-08-2018 17:00-0500 BP Diastolic 70 mm[Hg] [facility] 05-08-2018 17:00-0500 BP Systolic 124 mm[Hg] [facility] 05-08-2018 17:00-0500 BSA (Body Surface Area) 1.85 m2 [facility] 05-08-2018 17:00-0500 Height 160.02 cm [facility] 05-08-2018 17:00-0500 Pulse (Heart Rate) 70 /min [facility] 05-08-2018 17:00-0500 Pulse Oximetry 99 % [facility] 05-08-2018 17:00-0500 Respiratory Rate 20 /min [facility] 05-08-2018 17:00-0500 Weight 76.66 kg [facility] 05-08-2018 15:00-0500 Body mass index (BMI) [Ratio] 29.9 kg/m2 Karla Clark [facility] Work Phone: [facility] Work Phone: 05-08-2018 15:00-0500 Body surface area Derived from formula 1.8 m2 Karla Amber [facility] Work Phone: [facility] Work Phone: 05-08-2018 15:00-0500 Body weight 76.66 kg Karla Clark [facility] Work Phone: [facility] Work Phone: 03-20-2018 13:39-0400 BMI (Body Mass Index) 30.11 kg/m2 [facility] 03-20-2018 13:39-0400 Body Temperature 97.9 [degF] [facility] 03-20-2018 13:39-0400 BP Diastolic 84 mm[Hg] [facility] 03-20-2018 13:39-0400 BP Systolic 122 mm[Hg] [facility] 03-20-2018 13:39-0400 BSA (Body Surface Area) 1.85 m2 [facility] 03-20-2018 13:39-0400 Height 160.02 cm [facility] 03-20-2018 13:39-0400 Pulse (Heart Rate) 59 /min [facility] 03-20-2018 13:39-0400 Pulse Oximetry 98 % [facility] 03-20-2018 13:39-0400 Respiratory Rate 20 /min [facility] 03-20-2018 13:39-0400 Weight 77.11 kg [facility] 03-20-2018 10:39-0400 Body height 160.02 cm Karla Amber [facility] Work Phone: [facility] Work Phone: 03-20-2018 10:39-0400 Body mass index (BMI) [Ratio] 30.1 kg/m2 Karla Amber [facility] Work Phone: [facility] Work Phone: 03-20-2018 10:39-0400 Body surface area Derived from formula 1.8 m2 Karla Amber [facility] Work Phone: [facility] Work Phone: 03-20-2018 10:39-0400 Body temperature 97.9 [degF] Karla Clark CNP Work Phone: [facility] Work Phone: 03-20-2018 10:39-0400 Body weight 77.11 kg Karla Clark CNP Work Phone: [facility] Work Phone: 03-20-2018 10:39-0400 Diastolic blood pressure 84 mm[Hg] Karla Clark CNP Work Phone: [facility] Work Phone: 03-20-2018 10:39-0400 Heart rate 59 /min Karla Clark CNP Work Phone: [facility] Work Phone: 03-20-2018 10:39-0400 Respiratory rate 20 /min Karla Clark CNP Work Phone: [facility] Work Phone: 03-20-2018 10:39-0400 Systolic blood pressure 122 mm[Hg] Karla Clark CNP Work Phone: [facility] Work Phone: 02-11-2018 17:45-0400 BMI (Body Mass Index) 30.11 kg/m2 [facility] 02-11-2018 17:45-0400 Body Temperature 98.6 [degF] Karla Amber [facility] 02-11-2018 17:45-0400 BP Diastolic 80 mm[Hg] [facility] 02-11-2018 17:45-0400 BP Systolic 124 mm[Hg] [facility] 02-11-2018 17:45-0400 BSA (Body Surface Area) 1.85 m2 [facility] 02-11-2018 17:45-0400 Height 160.02 cm [facility] 02-11-2018 17:45-0400 Pulse (Heart Rate) 72 /min [facility] 02-11-2018 17:45-0400 Pulse Oximetry 97 % [facility] 02-11-2018 17:45-0400 Respiratory Rate 20 /min [facility] 02-11-2018 17:45-0400 Weight 77.11 kg [facility] 02-11-2018 16:45-0400 BMI (Body Mass Index) 30.11 kg/m2 [facility] 02-11-2018 16:45-0400 Body Temperature 98.6 [degF] [facility] 02-11-2018 16:45-0400 BP Diastolic 80 mm[Hg] [facility] 02-11-2018 16:45-0400 BP Systolic 124 mm[Hg] [facility] 02-11-2018 16:45-0400 BSA (Body Surface Area) 1.85 m2 [facility] 02-11-2018 16:45-0400 Height 160.02 cm [facility] 02-11-2018 16:45-0400 Pulse (Heart Rate) 72 /min [facility] 02-11-2018 16:45-0400 Pulse Oximetry 97 % [facility] 02-11-2018 16:45-0400 Respiratory Rate 20 /min Karla Clark [facility] 02-11-2018 16:45-0400 Weight 77.11 kg Karla Clark [facility] 02-11-2018 14:45-0400 Body height 160.02 cm Karla Clark CNP Work Phone: [facility] Work Phone: 02-11-2018 14:45-0400 Body mass index (BMI) [Ratio] 30.1 kg/m2 Karla Clark CNP Work Phone: [facility] Work Phone: 02-11-2018 14:45-0400 Body surface area Derived from formula 1.8 m2 Karla Clark CNP Work Phone: [facility] Work Phone: 02-11-2018 14:45-0400 Body temperature 98.6 [degF] Karla Clark CNP Work Phone: [facility] Work Phone: 02-11-2018 14:45-0400 Body weight 77.11 kg Karla Calrk CNP Work Phone: [facility] Work Phone: 02-11-2018 14:45-0400 Diastolic blood pressure 80 mm[Hg] Karla Clark CNP Work Phone: [facility] Work Phone: 02-11-2018 14:45-0400 Heart rate 72 /min Karla Clark CNP Work Phone: [facility] Work Phone: 02-11-2018 14:45-0400 Respiratory rate 20 /min Karla Clark CNP Work Phone: [facility] Work Phone: 02-11-2018 14:45-0400 Systolic blood pressure 124 mm[Hg] Karla Clark CNP Work Phone: [facility] Work Phone: 12-19-2017 17:08-0400 BMI (Body Mass Index) 30.29 kg/m2 [facility] 12-19-2017 17:08-0400 Body Temperature 98.7 [degF] [facility] 12-19-2017 17:08-0400 BP Diastolic 80 mm[Hg] [facility] 12-19-2017 17:08-0400 BP Systolic 122 mm[Hg] [facility] 12-19-2017 17:08-0400 BSA (Body Surface Area) 1.86 m2 [facility] 12-19-2017 17:08-0400 Height 160.02 cm [facility] 12-19-2017 17:08-0400 Pulse (Heart Rate) 97 /min [facility] 12-19-2017 17:08-0400 Pulse Oximetry 96 % [facility] 12-19-2017 17:08-0400 Respiratory Rate 18 /min [facility] 12-19-2017 17:08-0400 Weight 77.57 kg [facility] 12-19-2017 16:08-0400 BMI (Body Mass Index) 30.29 kg/m2 [facility] 12-19-2017 16:08-0400 Body Temperature 98.7 [degF] [facility] 12-19-2017 16:08-0400 BP Diastolic 80 mm[Hg] [facility] 12-19-2017 16:08-0400 BP Systolic 122 mm[Hg] [facility] 12-19-2017 16:08-0400 BSA (Body Surface Area) 1.86 m2 [facility] 12-19-2017 16:08-0400 Height 160.02 cm [facility] 12-19-2017 16:08-0400 Pulse (Heart Rate) 97 /min [facility] 12-19-2017 16:08-0400 Pulse Oximetry 96 % [facility] 12-19-2017 16:08-0400 Respiratory Rate 18 /min [facility] 12-19-2017 16:08-0400 Weight 77.57 kg [facility] 12-19-2017 14:08-0400 Body height 160.02 cm Karla Clark [facility] Work Phone: [facility] Work Phone: 12-19-2017 14:08-0400 Body mass index (BMI) [Ratio] 30.3 kg/m2 Karla Clark [facility] Work Phone: [facility] Work Phone: 12-19-2017 14:08-0400 Body surface area Derived from formula 1.81 m2 Karla Clark [facility] Work Phone: [facility] Work Phone: 12-19-2017 14:08-0400 Body temperature 98.7 [degF] Kalra Clark [facility] Work Phone: [facility] Work Phone: 12-19-2017 14:08-0400 Body weight 77.57 kg Karla Clark CNP Work Phone: [facility] Work Phone: 12-19-2017 14:08-0400 Diastolic blood pressure 80 mm[Hg] Karla Clark CNP Work Phone: [facility] Work Phone: 12-19-2017 14:08-0400 Heart rate 97 /min Karla Clark CNP Work Phone: [facility] Work Phone: 12-19-2017 14:08-0400 Respiratory rate 18 /min Karla Clark CNP Work Phone: [facility] Work Phone: 12-19-2017 14:08-0400 Systolic blood pressure 122 mm[Hg] Karla Clark CNP Work Phone: [facility] Work Phone: 10-08-2017 14:21-0400 BMI (Body Mass Index) 29.47 kg/m2 [facility] 10-08-2017 14:21-0400 Body Temperature 97.5 [degF] [facility] 10-08-2017 14:21-0400 BP Diastolic 71 mm[Hg] [facility] 10-08-2017 14:21-0400 BP Systolic 109 mm[Hg] [facility] 10-08-2017 14:21-0400 BSA (Body Surface Area) 1.83 m2 [facility] 10-08-2017 14:21-0400 Height 160.02 cm [facility] 10-08-2017 14:21-0400 Pulse (Heart Rate) 53 /min [facility] 10-08-2017 14:21-0400 Pulse Oximetry 98 % [facility] 10-08-2017 14:21-0400 Respiratory Rate 18 /min [facility] 10-08-2017 14:21-0400 Weight 75.47 kg [facility] 10-08-2017 13:21-0400 BMI (Body Mass Index) 29.47 kg/m2 [facility] 10-08-2017 13:21-0400 Body Temperature 97.5 [degF] [facility] 10-08-2017 13:21-0400 BP Diastolic 71 mm[Hg] [facility] 10-08-2017 13:21-0400 BP Systolic 109 mm[Hg] [facility] 10-08-2017 13:21-0400 BSA (Body Surface Area) 1.83 m2 [facility] 10-08-2017 13:21-0400 Height 160.02 cm [facility] 10-08-2017 13:21-0400 Pulse (Heart Rate) 53 /min [facility] 10-08-2017 13:21-0400 Pulse Oximetry 98 % [facility] 10-08-2017 13:21-0400 Respiratory Rate 18 /min [facility] 10-08-2017 13:21-0400 Weight 75.47 kg [facility] 10-08-2017 11:21-0400 Body height 160.02 cm Karla Clark CNP Work Phone: [facility] Work Phone: 10-08-2017 11:21-0400 Body mass index (BMI) [Ratio] 29.4 kg/m2 Karla Clark CNP Work Phone: [facility] Work Phone: 10-08-2017 11:21-0400 Body surface area Derived from formula 1.79 m2 Karla Clark CNP Work Phone: [facility] Work Phone: 10-08-2017 11:21-0400 Body temperature 97.5 [degF] Karla Clark CNP Work Phone: [facility] Work Phone: 10-08-2017 11:21-0400 Body weight 75.3 kg Karla Clark CNP Work Phone: [facility] Work Phone: 10-08-2017 11:21-0400 Diastolic blood pressure 71 mm[Hg] Karla Clark CNP Work Phone: [facility] Work Phone: 10-08-2017 11:21-0400 Heart rate 53 /min Karla Clark CNP Work Phone: [facility] Work Phone: 10-08-2017 11:21-0400 Respiratory rate 18 /min Karla Clark CNP Work Phone: [facility] Work Phone: 10-08-2017 11:21-0400 Systolic blood pressure 109 mm[Hg] Karla Clark CNP Work Phone: [facility] Work Phone: 09-17-2017 13:46-0400 BMI (Body Mass Index) 29.43 kg/m2 Karla Clark [facility] 09-17-2017 13:46-0400 Body Temperature 98.9 [degF] [facility] 09-17-2017 13:46-0400 BP Diastolic 61 mm[Hg] [facility] 09-17-2017 13:46-0400 BP Systolic 91 mm[Hg] [facility] 09-17-2017 13:46-0400 BSA (Body Surface Area) 1.83 m2 [facility] 09-17-2017 13:46-0400 Height 160.02 cm [facility] 09-17-2017 13:46-0400 Pulse (Heart Rate) 54 /min [facility] 09-17-2017 13:46-0400 Pulse Oximetry 96 % [facility] 09-17-2017 13:46-0400 Respiratory Rate 18 /min [facility] 09-17-2017 13:46-0400 Weight 75.35 kg [facility] 09-17-2017 12:46-0400 BMI (Body Mass Index) 29.43 kg/m2 [facility] 09-17-2017 12:46-0400 Body Temperature 98.9 [degF] [facility] 09-17-2017 12:46-0400 BP Diastolic 61 mm[Hg] [facility] 09-17-2017 12:46-0400 BP Systolic 91 mm[Hg] [facility] 09-17-2017 12:46-0400 BSA (Body Surface Area) 1.83 m2 Karla Amber [facility] 09-17-2017 12:46-0400 Height 160.02 cm [facility] 09-17-2017 12:46-0400 P[facility] ([facility] Rate) 54 /min [facility] 09-17-2017 12:46-0400 Pulse Oximetry 96 % [facility] 09-17-2017 12:46-0400 Respiratory Rate 18 /min [facility] 09-17-2017 12:46-0400 Weight 75.35 kg [facility] 09-17-2017 10:46-0400 Body height 160.02 cm Karla Clark CNP Work Phone: [facility] Work Phone: 09-17-2017 10:46-0400 Body mass index (BMI) [Ratio] 29.4 kg/m2 Karla Clark CNP Work Phone: [facility] Work Phone: 09-17-2017 10:46-0400 Body surface area Derived from formula 1.79 m2 Karla Clark CNP Work Phone: [facility] Work Phone: 09-17-2017 10:46-0400 Body temperature 98.9 [degF] Karla Clark CNP Work Phone: [facility] Work Phone: 09-17-2017 10:46-0400 Body weight 75.3 kg Karla Clark CNP Work Phone: [facility] Work Phone: 09-17-2017 10:46-0400 Diastolic blood pressure 61 mm[Hg] Karla Clark CNP Work Phone: [facility] Work Phone: 09-17-2017 10:46-0400 Heart rate 54 /min Karla Clark [employer] Work Phone: [facility] Work Phone: 09-17-2017 10:46-0400 Respiratory rate 18 /min Karla Clark CNP Work Phone: [facility] Work Phone: 09-17-2017 10:46-0400 Systolic blood pressure 91 mm[Hg] Karla Clark [employer] Work Phone: [facility] Work Phone: 07-30-2017 11:43-0500 BMI (Body Mass Index) 28.87 kg/m2 [facility] 07-30-2017 11:43-0500 Body Temperature 97.2 [degF] [facility] 07-30-2017 11:43-0500 BP Diastolic 84 mm[Hg] [facility] 07-30-2017 11:43-0500 BP Systolic 119 mm[Hg] [facility] 07-30-2017 11:43-0500 BSA (Body Surface Area) 1.81 m2 [facility] 07-30-2017 11:43-0500 Height 160.02 cm [facility] 07-30-2017 11:43-0500 Pulse (Heart Rate) 63 /min [facility] 07-30-2017 11:43-0500 Pulse Oximetry 98 % [facility] 07-30-2017 11:43-0500 Respiratory Rate 20 /min [facility] 07-30-2017 11:43-0500 Weight 73.94 kg [facility] 07-30-2017 10:43-0500 BMI (Body Mass Index) 28.87 kg/m2 [facility] 07-30-2017 10:43-0500 Body Temperature 97.2 [degF] [facility] 07-30-2017 10:43-0500 BP Diastolic 84 mm[Hg] [facility] 07-30-2017 10:43-0500 BP Systolic 119 mm[Hg] [facility] 07-30-2017 10:43-0500 BSA (Body Surface Area) 1.81 m2 [facility] 07-30-2017 10:43-0500 Height 160.02 cm [facility] 07-30-2017 10:43-0500 Pulse (Heart Rate) 63 /min [facility] 07-30-2017 10:43-0500 Pulse Oximetry 98 % [facility] 07-30-2017 10:43-0500 Respiratory Rate 20 /min [facility] 07-30-2017 10:43-0500 Weight 73.94 kg [facility] 05-14-2017 12:46-0500 BMI (Body Mass Index) 29.23 kg/m2 [facility] 05-14-2017 12:46-0500 Body Temperature 98.2 [degF] [facility] 05-14-2017 12:46-0500 BP Diastolic 80 mm[Hg] [facility] 05-14-2017 12:46-0500 BP Systolic 118 mm[Hg] [facility] 05-14-2017 12:46-0500 BSA (Body Surface Area) 1.82 m2 [facility] 05-14-2017 12:46-0500 Height 160.02 cm [facility] 05-14-2017 12:46-0500 Pulse (Heart Rate) 88 /min [facility] 05-14-2017 12:46-0500 Pulse Oximetry 98 % [facility] 05-14-2017 12:46-0500 Respiratory Rate 18 /min [facility] 05-14-2017 12:46-0500 Weight 74.84 kg [facility] 05-14-2017 11:46-0500 BMI (Body Mass Index) 29.23 kg/m2 [facility] 05-14-2017 11:46-0500 Body Temperature 98.2 [degF] [facility] 05-14-2017 11:46-0500 BP Diastolic 80 mm[Hg] [facility] 05-14-2017 11:46-0500 BP Systolic 118 mm[Hg] [facility] 05-14-2017 11:46-0500 BSA (Body Surface Area) 1.82 m2 [facility] 05-14-2017 11:46-0500 Height 160.02 cm [facility] 05-14-2017 11:46-0500 Pulse (Heart Rate) 88 /min [facility] 05-14-2017 11:46-0500 Pulse Oximetry 98 % [facility] 05-14-2017 11:46-0500 Respiratory Rate 18 /min [facility] 05-14-2017 11:46-0500 Weight 74.84 kg [facility] 04-18-2017 17:33-0500 BMI (Body Mass Index) 29.25 kg/m2 [facility] 04-18-2017 17:33-0500 Body Temperature 97.5 [degF] [facility] 04-18-2017 17:33-0500 BP Diastolic 60 mm[Hg] [facility] 04-18-2017 17:33-0500 BP Systolic 94 mm[Hg] [facility] 04-18-2017 17:33-0500 BSA (Body Surface Area) 1.82 m2 [facility] 04-18-2017 17:33-0500 Height 160.02 cm [facility] 04-18-2017 17:33-0500 Pulse (Heart Rate) 48 /min [facility] 04-18-2017 17:33-0500 Pulse Oximetry 97 % [facility] 04-18-2017 17:33-0500 Respiratory Rate 18 /min [facility] 04-18-2017 17:33-0500 Weight 74.9 kg [facility] 04-18-2017 16:33-0500 BMI (Body Mass Index) 29.25 kg/m2 [facility] 04-18-2017 16:33-0500 Body Temperature 97.5 [degF] [facility] 04-18-2017 16:33-0500 BP Diastolic 60 mm[Hg] [facility] 04-18-2017 16:33-0500 BP Systolic 94 mm[Hg] [facility] 04-18-2017 16:33-0500 BSA (Body Surface Area) 1.82 m2 [facility] 04-18-2017 16:33-0500 Height 160.02 cm [facility] 04-18-2017 16:33-0500 Pulse (Heart Rate) 48 /min [facility] 04-18-2017 16:33-0500 Pulse Oximetry 97 % [facility] 04-18-2017 16:33-0500 Respiratory Rate 18 /min [facility] 04-18-2017 16:33-0500 Weight 74.9 kg [facility] 03-07-2017 17:07-0400 BMI (Body Mass Index) 29.25 kg/m2 [facility] 03-07-2017 17:07-0400 Body Temperature 98.7 [degF] [facility] 03-07-2017 17:07-0400 BP Diastolic 68 mm[Hg] [facility] 03-07-2017 17:07-0400 BP Systolic 100 mm[Hg] [facility] 03-07-2017 17:07-0400 BSA (Body Surface Area) 1.82 m2 [facility] 03-07-2017 17:07-0400 Height 160.02 cm [facility] 03-07-2017 17:07-0400 Pulse (Heart Rate) 65 /min [facility] 03-07-2017 17:07-0400 Pulse Oximetry 100 % [facility] 03-07-2017 17:07-0400 Respiratory Rate 18 /min [facility] 03-07-2017 17:07-0400 Weight 74.9 kg [facility] 03-07-2017 16:07-0400 BMI (Body Mass Index) 29.25 kg/m2 [facility] 03-07-2017 16:07-0400 Body Temperature 98.7 [degF] [facility] 03-07-2017 16:07-0400 BP Diastolic 68 mm[Hg] [facility] 03-07-2017 16:07-0400 BP Systolic 100 mm[Hg] [facility] 03-07-2017 16:07-0400 BSA (Body Surface Area) 1.82 m2 [facility] 03-07-2017 16:07-0400 Height 160.02 cm [facility] 03-07-2017 16:07-0400 Pulse (Heart Rate) 65 /min [facility] 03-07-2017 16:07-0400 Pulse Oximetry 100 % [facility] 03-07-2017 16:07-0400 Respiratory Rate 18 /min [facility] 03-07-2017 16:07-0400 Weight 74.9 kg [facility] 03-05-2017 16:29-0400 BMI (Body Mass Index) 29.1 kg/m2 [facility]-05-2017 16:29-0400 Body Temperature 97.6 [degF] [facility] 03-05-2017 16:29-0400 BP Diastolic 60 mm[Hg] [facility] 03-05-2017 16:29-0400 BP Systolic 102 mm[Hg] [facility] 03-05-2017 16:29-0400 BSA (Body Surface Area) 1.82 m2 [facility] 03-05-2017 16:29-0400 Height 160.02 cm [facility] 03-05-2017 16:29-0400 Pulse (Heart Rate) 60 /min [facility] 03-05-2017 16:29-0400 Pulse Oximetry 99 % [facility] 03-05-2017 16:29-0400 Respiratory Rate 18 /min [facility] 03-05-2017 16:29-0400 Weight 74.5 kg [facility] 03-05-2017 15:29-0400 BMI (Body Mass Index) 29.1 kg/m2 [facility] 03-05-2017 15:29-0400 Body Temperature 97.6 [degF] [facility] 03-05-2017 15:29-0400 BP Diastolic 60 mm[Hg] [facility] 03-05-2017 15:29-0400 BP Systolic 102 mm[Hg] [facility] 03-05-2017 15:29-0400 BSA (Body Surface Area) 1.82 m2 [facility] 03-05-2017 15:29-0400 Height 160.02 cm [facility] 03-05-2017 15:29-0400 Pulse (Heart Rate) 60 /min [facility] 03-05-2017 15:29-0400 Pulse Oximetry 99 % [facility] 03-05-2017 15:29-0400 Respiratory Rate 18 /min [facility] 03-05-2017 15:29-0400 Weight 74.5 kg [facility] 01-01-2017 11:52-0400 BMI (Body Mass Index) 28.59 kg/m2 [facility] 01-01-2017 11:52-0400 Body Temperature 97.5 [degF] [facility] 01-01-2017 11:52-0400 BP Diastolic 69 mm[Hg] [facility] 01-01-2017 11:52-0400 BP Systolic 114 mm[Hg] [facility] 01-01-2017 11:52-0400 BSA (Body Surface Area) 1.8 m2 [facility] 01-01-2017 11:52-0400 Height 160.02 cm [facility] 01-01-2017 11:52-0400 Pulse (Heart Rate) 61 /min [facility] 01-01-2017 11:52-0400 Pulse Oximetry 99 % [facility] 01-01-2017 11:52-0400 Respiratory Rate 20 /min [facility] 01-01-2017 11:52-0400 Weight 73.2 kg [facility] 01-01-2017 10:52-0400 BMI (Body Mass Index) 28.59 kg/m2 [facility] 01-01-2017 10:52-0400 Body Temperature 97.5 [degF] [facility] 01-01-2017 10:52-0400 BP Diastolic 69 mm[Hg] [facility] 01-01-2017 10:52-0400 BP Systolic 114 mm[Hg] [facility] 01-01-2017 10:52-0400 BSA (Body Surface Area) 1.8 m2 [facility] 01-01-2017 10:52-0400 Height 160.02 cm [facility] 01-01-2017 10:52-0400 Pulse (Heart Rate) 61 /min [facility] 01-01-2017 10:52-0400 Pulse Oximetry 99 % [facility] 01-01-2017 10:52-0400 Respiratory Rate 20 /min [facility] 01-01-2017 10:52-0400 Weight 73.2 kg [facility] 12-06-2016 12:51-0400 BMI (Body Mass Index) 28.79 kg/m2 [facility] 12-06-2016 12:51-0400 Body Temperature 97.5 [degF] [facility] 12-06-2016 12:51-0400 BP Diastolic 80 mm[Hg] [facility] 12-06-2016 12:51-0400 BP Systolic 104 mm[Hg] [facility] 12-06-2016 12:51-0400 BSA (Body Surface Area) 1.81 m2 [facility] 12-06-2016 12:51-0400 Height 160.02 cm [facility] 12-06-2016 12:51-0400 Pulse (Heart Rate) 81 /min [facility] 12-06-2016 12:51-0400 Pulse Oximetry 98 % [facility] 12-06-2016 12:51-0400 Respiratory Rate 18 /min [facility] 12-06-2016 12:51-0400 Weight 73.71 kg [facility] 12-06-2016 11:51-0400 BMI (Body Mass Index) 28.79 kg/m2 [facility] 12-06-2016 11:51-0400 Body Temperature 97.5 [degF] [facility] 12-06-2016 11:51-0400 BP Diastolic 80 mm[Hg] [facility] 12-06-2016 11:51-0400 BP Systolic 104 mm[Hg] [facility] 12-06-2016 11:51-0400 BSA (Body Surface Area) 1.81 m2 [facility] 12-06-2016 11:51-0400 Height 160.02 cm [facility] 12-06-2016 11:51-0400 Pulse (Heart Rate) 81 /min [facility] 12-06-2016 11:51-0400 Pulse Oximetry 98 % [facility] 12-06-2016 11:51-0400 Respiratory Rate 18 /min [facility] 12-06-2016 11:51-0400 Weight 73.71 kg [facility] 11-06-2016 14:21-0400 BMI (Body Mass Index) 29.58 kg/m2 [facility] 11-06-2016 14:21-0400 Body Temperature 97.5 [degF] [facility] 11-06-2016 14:21-0400 BP Diastolic 76 mm[Hg] [facility] 11-06-2016 14:21-0400 BP Systolic 117 mm[Hg] [facility] 11-06-2016 14:21-0400 BSA (Body Surface Area) 1.83 m2 [facility] 11-06-2016 14:-0400 Height 160.02 cm [facility] 11-06-2016 14:21-0400 Pulse (Heart Rate) 64 /min [facility] 11-06-2016 14:21-0400 Pulse Oximetry 97 % [facility] 11-06-2016 14:21-0400 Respiratory Rate 18 /min [facility] 11-06-2016 14:21-0400 Weight 75.75 kg [facility] 11-06-2016 13:21-0400 BMI (Body Mass Index) 29.58 kg/m2 [facility] 11-06-2016 13:21-0400 Body Temperature 97.5 [degF] [facility] 11-06-2016 13:21-0400 BP Diastolic 76 mm[Hg] [facility] 11-06-2016 13:21-0400 BP Systolic 117 mm[Hg] [facility] 11-06-2016 13:21-0400 BSA (Body Surface Area) 1.83 m2 [facility] 11-06-2016 13:21-0400 Height 160.02 cm [facility] 11-06-2016 13:21-0400 Pulse (Heart Rate) 64 /min [facility] 11-06-2016 13:21-0400 Pulse Oximetry 97 % [facility] 11-06-2016 13:21-0400 Respiratory Rate 18 /min [facility] 11-06-2016 13:21-0400 Weight 75.75 kg [facility] 09-27-2016 17:31-0400 BMI (Body Mass Index) 28.67 kg/m2 [facility]-27-2016 17:31-0400 Body Temperature 98.2 [degF] [facility] 09-27-2016 17:31-0400 BP Diastolic 64 mm[Hg] [facility] 09-27-2016 17:31-0400 BP Systolic 105 mm[Hg] [facility] 09-27-2016 17:31-0400 BSA (Body Surface Area) 1.85 m2 [facility] 09-27-2016 17:31-0400 Height 162.56 cm [facility] 09-27-2016 17:31-0400 Pulse (Heart Rate) 102 /min [facility] 09-27-2016 17:31-0400 Pulse Oximetry 95 % [facility] 09-27-2016 17:31-0400 Respiratory Rate 18 /min [facility] 09-27-2016 17:31-0400 Weight 75.75 kg [facility] 09-27-2016 16:31-0400 BMI (Body Mass Index) 28.67 kg/m2 [facility] 09-27-2016 16:31-0400 Body Temperature 98.2 [degF] [facility] 09-27-2016 16:31-0400 BP Diastolic 64 mm[Hg] [facility] 09-27-2016 16:31-0400 BP Systolic 105 mm[Hg] [facility] 09-27-2016 16:31-0400 BSA (Body Surface Area) 1.85 m2 [facility] 09-27-2016 16:31-0400 Height 162.56 cm [facility] 09-27-2016 16:31-0400 Pulse (Heart Rate) 102 /min [facility] 09-27-2016 16:31-0400 Pulse Oximetry 95 % [facility] 09-27-2016 16:31-0400 Respiratory Rate 18 /min [facility] 09-27-2016 16:31-0400 Weight 75.75 kg [facility] 08-21-2016 13:22-0400 BMI (Body Mass Index) 28.41 kg/m2 [facility] 08-21-2016 13:22-0400 Body Temperature 97.7 [degF] [facility] 08-21-2016 13:22-0400 BP Diastolic 80 mm[Hg] [facility] 08-21-2016 13:22-0400 BP Systolic 110 mm[Hg] [facility] 08-21-2016 13:22-0400 BSA (Body Surface Area) 1.84 m2 [facility] 08-21-2016 13:22-0400 Height 162.56 cm [facility] 08-21-2016 13:22-0400 Pulse (Heart Rate) 58 /min [facility] 08-21-2016 13:22-0400 Pulse Oximetry 97 % [facility] 08-21-2016 13:22-0400 Respiratory Rate 18 /min [facility] 08-21-2016 13:22-0400 Weight 75.07 kg [facility] 08-21-2016 12:22-0400 BMI (Body Mass Index) 28.41 kg/m2 [facility] 08-21-2016 12:22-0400 Body Temperature 97.7 [degF] [facility] 08-21-2016 12:22-0400 BP Diastolic 80 mm[Hg] [facility] 08-21-2016 12:22-0400 BP Systolic 110 mm[Hg] [facility] 08-21-2016 12:22-0400 BSA (Body Surface Area) 1.84 m2 [facility] 08-21-2016 12:22-0400 Height 162.56 cm [facility] 08-21-2016 12:22-0400 [facility] 08-21-2016 12:22-0400 Pulse Oximetry 97 % [facility] 08-21-2016 12:22-0400 Respiratory Rate 18 /min [facility] 08-21-2016 12:22-0400 Weight 75.07 kg [facility] 06-26-2016 16:13-0500 BMI (Body Mass Index) 28.9 kg/m2 [facility] 06-26-2016 16:13-0500 Body Temperature 97 [degF] [facility] 06-26-2016 16:13-0500 BP Diastolic 80 mm[Hg] [facility] 06-26-2016 16:13-0500 BP Systolic 106 mm[Hg] [facility] 06-26-2016 16:13-0500 BSA (Body Surface Area) 1.86 m2 [facility] 06-26-2016 16:13-0500 Height 162.56 cm [facility] 06-26-2016 16:13-0500 Pulse (Heart Rate) 61 /min [facility] 06-26-2016 16:13-0500 Pulse Oximetry 97 % [facility] 06-26-2016 16:13-0500 Respiratory Rate 18 /min [facility] 06-26-2016 16:13-0500 Weight 76.37 kg [facility] 06-26-2016 15:13-0500 BMI (Body Mass Index) 28.9 kg/m2 [facility] 06-26-2016 15:13-0500 Body Temperature 97 [degF] [facility] 06-26-2016 15:13-0500 BP Diastolic 80 mm[Hg] [facility] 06-26-2016 15:13-0500 BP Systolic 106 mm[Hg] [facility] 06-26-2016 15:13-0500 BSA (Body Surface Area) 1.86 m2 [facility] 06-26-2016 15:13-0500 Height 162.56 cm [facility] 06-26-2016 15:13-0500 Pulse (Heart Rate) 61 /min [facility] 06-26-2016 15:13-0500 Pulse Oximetry 97 % [facility] 06-26-2016 15:13-0500 Respiratory Rate 18 /min [facility] 06-26-2016 15:13-0500 Weight 76.37 kg [facility] 06-12-2016 13:32-0500 BMI (Body Mass Index) 27.85 kg/m2 [facility] 06-12-2016 13:32-0500 Body Temperature 97.5 [degF] [facility] 06-12-2016 13:32-0500 BP Diastolic 68 mm[Hg] [facility] 06-12-2016 13:32-0500 BP Systolic 100 mm[Hg] [facility] 06-12-2016 13:32-0500 BSA (Body Surface Area) 1.82 m2 [facility] 06-12-2016 13:32-0500 Height 162.56 cm [facility] 06-12-2016 13:32-0500 Pulse (Heart Rate) 68 /min [facility] 06-12-2016 13:32-0500 Pulse Oximetry 98 % [facility] 06-12-2016 13:32-0500 Respiratory Rate 18 /min [facility] 06-12-2016 13:32-0500 Weight 73.6 kg [facility] 06-12-2016 12:32-0500 BMI (Body Mass Index) 27.85 kg/m2 [facility] 06-12-2016 12:32-0500 Body Temperature 97.5 [degF] [facility] 06-12-2016 12:32-0500 BP Diastolic 68 mm[Hg] [facility] 06-12-2016 12:32-0500 BP Systolic 100 mm[Hg] [facility] 06-12-2016 12:32-0500 BSA (Body Surface Area) 1.82 m2 [facility] 06-12-2016 12:32-0500 Height 162.56 cm [facility] 06-12-2016 12:32-0500 [facility] 68 [facility] 06-12-2016 12:32-0500 Pulse Oximetry 98 % [facility] 06-12-2016 12:32-0500 Respiratory Rate 18 /min [facility] 06-12-2016 12:32-0500 Weight 73.6 kg [facility] 05-22-2016 15:51-0500 BMI (Body Mass Index) 27.81 kg/m2 [facility] 05-22-2016 15:51-0500 Body Temperature 98 [degF] [facility] 05-22-2016 15:51-0500 BP Diastolic 67 mm[Hg] [facility] 05-22-2016 15:51-0500 BP Systolic 104 mm[Hg] [facility] 05-22-2016 15:51-0500 BSA (Body Surface Area) 1.82 m2 [facility] 05-22-2016 15:51-0500 Height 162.56 cm [facility] 05-22-2016 15:51-0500 [facility] 89 [facility] 05-22-2016 15:51-0500 Pulse Oximetry 99 % [facility] 05-22-2016 15:51-0500 Respiratory Rate 18 /min [facility] 05-22-2016 15:51-0500 Weight 73.48 kg [facility] 05-22-2016 14:51-0500 BMI (Body Mass Index) 27.81 kg/m2 [facility] 05-22-2016 14:51-0500 Body Temperature 98 [degF] [facility] 05-22-2016 14:51-0500 BP Diastolic 67 mm[Hg] [facility] 05-22-2016 14:51-0500 BP Systolic 104 mm[Hg] [facility] 05-22-2016 14:51-0500 BSA (Body Surface Area) 1.82 m2 [facility] 05-22-2016 14:51-0500 Height 162.56 cm [facility] 05-22-2016 14:51-0500 Pulse (Heart Rate) 89 /min [facility] 05-22-2016 14:51-0500 Pulse Oximetry 99 % [facility] 05-22-2016 14:51-0500 Respiratory Rate 18 /min [facility] 05-22-2016 14:51-0500 Weight 73.48 kg [facility] 04-10-2016 12:54-0500 BMI (Body Mass Index) 27.7 kg/m2 [facility] 04-10-2016 12:54-0500 Body Temperature 97.8 [degF] [facility] 04-10-2016 12:54-0500 BP Diastolic 74 mm[Hg] [facility] 04-10-2016 12:54-0500 BP Systolic 110 mm[Hg] [facility] 04-10-2016 12:54-0500 BSA (Body Surface Area) 1.82 m2 [facility] 04-10-2016 12:54-0500 Height 162.56 cm [facility] 04-10-2016 12:54-0500 Pulse (Heart Rate) 58 /min [facility] 04-10-2016 12:54-0500 Pulse Oximetry 98 % [facility] 04-10-2016 12:54-0500 Respiratory Rate 20 /min [facility] 04-10-2016 12:54-0500 Weight 73.2 kg [facility] 04-10-2016 11:54-0500 BMI (Body Mass Index) 27.7 kg/m2 [facility] 04-10-2016 11:54-0500 Body Temperature 97.8 [degF] [facility] 04-10-2016 11:54-0500 BP Diastolic 74 mm[Hg] [facility] 04-10-2016 11:54-0500 BP Systolic 110 mm[Hg] [facility] 04-10-2016 11:54-0500 BSA (Body Surface Area) 1.82 m2 [facility] 04-10-2016 11:54-0500 Height 162.56 cm [facility] 04-10-2016 11:54-0500 Pulse (Heart Rate) 58 /min [facility] 04-10-2016 11:54-0500 Pulse Oximetry 98 % [facility] 04-10-2016 11:54-0500 Respiratory Rate 20 /min [facility] 04-10-2016 11:54-0500 Weight 73.2 kg [facility] 03-20-2016 13:39-0400 BMI (Body Mass Index) 27.83 kg/m2 [facility] 03-20-2016 13:39-0400 Body Temperature 98.6 [degF] [facility] 03-20-2016 13:39-0400 BP Diastolic 80 mm[Hg] [facility] 03-20-2016 13:39-0400 BP Systolic 122 mm[Hg] [facility] 03-20-2016 13:39-0400 BSA (Body Surface Area) 1.82 m2 [facility] 03-20-2016 13:39-0400 Height 162.56 cm [facility] 03-20-2016 13:39-0400 Pulse (Heart Rate) 69 /min [facility] 03-20-2016 13:39-0400 Pulse Oximetry 98 % [facility] 03-20-2016 13:39-0400 Respiratory Rate 18 /min [facility] 03-20-2016 13:39-0400 Weight 73.54 kg [facility] 03-20-2016 12:39-0400 BMI (Body Mass Index) 27.83 kg/m2 [facility] 03-20-2016 12:39-0400 Body Temperature 98.6 [degF] [facility] 03-20-2016 12:39-0400 BP Diastolic 80 mm[Hg] [facility] 03-20-2016 12:39-0400 BP Systolic 122 mm[Hg] [facility] 03-20-2016 12:39-0400 BSA (Body Surface Area) 1.82 m2 [facility] 03-20-2016 12:39-0400 Height 162.56 cm [facility] 03-20-2016 12:39-0400 Pulse (Heart Rate) 69 /min [facility] 03-20-2016 12:39-0400 Pulse Oximetry 98 % [facility] 03-20-2016 12:39-0400 Respiratory Rate 18 /min [facility] 03-20-2016 12:39-0400 Weight 73.54 kg [facility] 03-09-2016 14:12-0400 BMI (Body Mass Index) 27.64 kg/m2 [facility] 03-09-2016 14:12-0400 Body Temperature 99.2 [degF] [facility] 03-09-2016 14:12-0400 BP Diastolic 66 mm[Hg] [facility] 03-09-2016 14:12-0400 BP Systolic 102 mm[Hg] [facility] 03-09-2016 14:12-0400 BSA (Body Surface Area) 1.82 m2 [facility] 03-09-2016 14:12-0400 Height 162.56 cm [facility] 03-09-2016 14:12-0400 Pulse (Heart Rate) 70 /min [facility] 03-09-2016 14:12-0400 Pulse Oximetry 97 % [facility] 03-09-2016 14:12-0400 Respiratory Rate 18 /min [facility] 03-09-2016 14:12-0400 Weight 73.03 kg [facility] 03-09-2016 13:12-0400 BMI (Body Mass Index) 27.64 kg/m2 [facility] 03-09-2016 13:12-0400 Body Temperature 99.2 [degF] [facility] 03-09-2016 13:12-0400 BP Diastolic 66 mm[Hg] [facility] 03-09-2016 13:12-0400 BP Systolic 102 mm[Hg] [facility] 03-09-2016 13:12-0400 BSA (Body Surface Area) 1.82 m2 [facility] 03-09-2016 13:12-0400 Height 162.56 cm [facility] 03-09-2016 13:12-0400 Pulse (Heart Rate) 70 /min [facility] 03-09-2016 13:12-0400 Pulse Oximetry 97 % [facility] 03-09-2016 13:12-0400 Respiratory Rate 18 /min [facility] 03-09-2016 13:12-0400 Weight 73.03 kg [facility] 03-06-2016 18:13-0400 BMI (Body Mass Index) 27.72 kg/m2 [facility] 03-06-2016 18:13-0400 Body Temperature 98.6 [degF] [facility] 03-06-2016 18:13-0400 BP Diastolic 70 mm[Hg] [facility] 03-06-2016 18:13-0400 BP Systolic 107 mm[Hg] [facility] 03-06-2016 18:13-0400 BSA (Body Surface Area) 1.82 m2 [facility] 03-06-2016 18:13-0400 Height 162.56 cm [facility] 03-06-2016 18:13-0400 Pulse (Heart Rate) 65 /min [facility] 03-06-2016 18:13-0400 Pulse Oximetry 97 % [facility] 03-06-2016 18:13-0400 Respiratory Rate 18 /min [facility] 03-06-2016 18:13-0400 Weight 73.26 kg [facility] 03-06-2016 17:13-0400 BMI (Body Mass Index) 27.72 kg/m2 [facility] 03-06-2016 17:13-0400 Body Temperature 98.6 [degF] [facility] 03-06-2016 17:13-0400 BP Diastolic 70 mm[Hg] [facility] 03-06-2016 17:13-0400 BP Systolic 107 mm[Hg] [facility] 03-06-2016 17:13-0400 BSA (Body Surface Area) 1.82 m2 [facility] 03-06-2016 17:13-0400 Height 162.56 cm [facility] 03-06-2016 17:13-0400 Pulse (Heart Rate) 65 /min [facility] 03-06-2016 17:13-0400 Pulse Oximetry 97 % [facility] 03-06-2016 17:13-0400 Respiratory Rate 18 /min [facility] 03-06-2016 17:13-0400 Weight 73.26 kg [facility] 02-21-2016 13:12-0400 BMI (Body Mass Index) 28.15 kg/m2 [facility] 02-21-2016 13:12-0400 Body Temperature 97.2 [degF] [facility] 02-21-2016 13:12-0400 BP Diastolic 74 mm[Hg] [facility] 02-21-2016 13:12-0400 BP Systolic 118 mm[Hg] [facility] 02-21-2016 13:12-0400 BSA (Body Surface Area) 1.83 m2 [facility] 02-21-2016 13:12-0400 Height 162.56 cm [facility] 02-21-2016 13:12-0400 [facility] 63 [facility] 02-21-2016 13:12-0400 Pulse Oximetry 99 % [facility] 02-21-2016 13:12-0400 Respiratory Rate 18 /min [facility] 02-21-2016 13:12-0400 Weight 74.39 kg [facility] 02-21-2016 12:12-0400 BMI (Body Mass Index) 28.15 kg/m2 [facility] 02-21-2016 12:12-0400 Body Temperature 97.2 [degF] [facility] 02-21-2016 12:12-0400 BP Diastolic 74 mm[Hg] [facility] 02-21-2016 12:12-0400 BP Systolic 118 mm[Hg] [facility] 02-21-2016 12:12-0400 BSA (Body Surface Area) 1.83 m2 [facility] 02-21-2016 12:12-0400 Height 162.56 cm [facility] 02-21-2016 12:12-0400 Pulse (Heart Rate) 63 /min [facility] Partne rs [facility] 02-21-2016 12:12-0400 Pulse Oximetry 99 % [facility] 02-21-2016 12:12-0400 Respiratory Rate 18 /min [facility] 02-21-2016 12:12-0400 Weight 74.39 kg [facility] 01-11-2016 13:02-0400 BMI (Body Mass Index) 28.34 kg/m2 [facility] tners [facility] 01-11-2016 13:02-0400 Body Temperature 98.2 [degF] [facility] 01-11-2016 13:02-0400 BP Diastolic 74 mm[Hg] [facility] 01-11-2016 13:02-0400 BP Systolic 126 mm[Hg] [facility] 01-11-2016 13:02-0400 BSA (Body Surface Area) 1.84 m2 [facility] 01-11-2016 13:02-0400 Height 162.56 cm [facility] 01-11-2016 13:02-0400 Pulse (Heart Rate) 69 /min [facility] Partne rs [facility] 01-11-2016 13:02-0400 Pulse Oximetry 97 % [facility] 01-11-2016 13:02-0400 Respiratory Rate 18 /min [facility] 01-11-2016 13:02-0400 Weight 74.9 kg [facility] 01-11-2016 12:02-0400 BMI (Body Mass Index) 28.34 kg/m2 [facility] 01-11-2016 12:02-0400 Body Temperature 98.2 [degF] [facility] 01-11-2016 12:02-0400 BP Diastolic 74 mm[Hg] [facility] 01-11-2016 12:02-0400 BP Systolic 126 mm[Hg] [facility] 01-11-2016 12:02-0400 BSA (Body Surface Area) 1.84 m2 [facility] 01-11-2016 12:02-0400 Height 162.56 cm [facility] 01-11-2016 12:02-0400 Pulse (Heart Rate) 69 /min [facility] 01-11-2016 12:02-0400 Pulse Oximetry 97 % [facility] 01-11-2016 12:02-0400 Respiratory Rate 18 /min [facility] 01-11-2016 12:02-0400 Weight 74.9 kg [facility] 12-08-2015 11:37-0400 BMI (Body Mass Index) 28.52 kg/m2 [facility] tners [facility] 12-08-2015 11:37-0400 BMI (Body Mass Index) 28.51 kg/m2 [facility] 12-08-2015 11:37-0400 Body Temperature 98.1 [degF] [facility] 12-08-2015 11:37-0400 BP Diastolic 60 mm[Hg] [facility] 12-08-2015 11:37-0400 BP Systolic 110 mm[Hg] [facility] 12-08-2015 11:37-0400 BSA (Body Surface Area) 1.84 m2 [facility] 12-08-2015 11:37-0400 Height 162.56 cm [facility] 12-08-2015 11:37-0400 Pulse (Heart Rate) 100 /min [facility] 12-08-2015 11:37-0400 Pulse Oximetry 98 % [facility] 12-08-2015 11:37-0400 Respiratory Rate 18 /min [facility] 12-08-2015 11:37-0400 Weight 75.35 kg [facility] 12-08-2015 10:37-0400 BMI (Body Mass Index) 28.52 kg/m2 [facility] tners [facility] 12-08-2015 10:37-0400 BMI (Body Mass Index) 28.51 kg/m2 [facility] 12-08-2015 10:37-0400 Body Temperature 98.1 [degF] [facility] 12-08-2015 10:37-0400 BP Diastolic 60 mm[Hg] [facility] 12-08-2015 10:37-0400 BP Systolic 110 mm[Hg] [facility] 12-08-2015 10:37-0400 BSA (Body Surface Area) 1.84 m2 [facility] 12-08-2015 10:37-0400 Height 162.56 cm [facility] 12-08-2015 10:37-0400 Pulse (Heart Rate) 100 /min [facility] 12-08-2015 10:37-0400 Pulse Oximetry 98 % [facility] 12-08-2015 10:37-0400 Respiratory Rate 18 /min [facility] 12-08-2015 10:37-0400 Weight 75.35 kg [facility] 10-25-2015 11:43-0400 BMI (Body Mass Index) 28.24 kg/m2 [facility] 10-25-2015 11:43-0400 Body Temperature 98.2 [degF] [facility] 10-25-2015 11:43-0400 BP Diastolic 70 mm[Hg] [facility] 10-25-2015 11:43-0400 BP Systolic 110 mm[Hg] [facility] 10-25-2015 11:43-0400 BSA (Body Surface Area) 1.84 m2 [facility] 10-25-2015 11:43-0400 Height 162.56 cm [facility] 10-25-2015 11:43-0400 Pulse (Heart Rate) 55 /min [facility] 10-25-2015 11:43-0400 Pulse Oximetry 99 % [facility] 10-25-2015 11:43-0400 Respiratory Rate 18 /min [facility] 10-25-2015 11:43-0400 Weight 74.62 kg [facility] 10-25-2015 10:43-0400 BMI (Body Mass Index) 28.24 kg/m2 [facility] 10-25-2015 10:43-0400 Body Temperature 98.2 [degF] [facility] 10-25-2015 10:43-0400 BP Diastolic 70 mm[Hg] [facility] 10-25-2015 10:43-0400 BP Systolic 110 mm[Hg] [facility] 10-25-2015 10:43-0400 BSA (Body Surface Area) 1.84 m2 [facility] 10-25-2015 10:43-0400 Height 162.56 cm [facility] 10-25-2015 10:43-0400 Pulse (Heart Rate) 55 /min [facility] 10-25-2015 10:43-0400 Pulse Oximetry 99 % [facility] 10-25-2015 10:43-0400 Respiratory Rate 18 /min [facility] 10-25-2015 10:43-0400 Weight 74.62 kg [facility] 09-22-2015 11:19-0400 BMI (Body Mass Index) 30.22 kg/m2 [facility] 09-22-2015 11:19-0400 Body Temperature 98.6 [degF] [facility] 09-22-2015 11:19-0400 BP Diastolic 78 mm[Hg] [facility] 09-22-2015 11:19-0400 BP Systolic 132 mm[Hg] [facility] 09-22-2015 11:19-0400 BSA (Body Surface Area) 1.81 m2 [facility] 09-22-2015 11:19-0400 Height 157.48 cm [facility] 09-22-2015 11:19-0400 Pulse (Heart Rate) 86 /min [facility] 09-22-2015 11:19-0400 Pulse Oximetry 98 % [facility] 09-22-2015 11:19-0400 Respiratory Rate 18 /min [facility] 09-22-2015 11:19-0400 Weight 74.96 kg [facility] 09-22-2015 10:19-0400 BMI (Body Mass Index) 30.22 kg/m2 [facility] 09-22-2015 10:19-0400 Body Temperature 98.6 [degF] [facility] 09-22-2015 10:19-0400 BP Diastolic 78 mm[Hg] [facility] 09-22-2015 10:19-0400 BP Systolic 132 mm[Hg] [facility] 09-22-2015 10:19-0400 BSA (Body Surface Area) 1.81 m2 [facility] 09-22-2015 10:19-0400 Height 157.48 cm [facility] 09-22-2015 10:19-0400 Pulse (Heart Rate) 86 /min [facility] 09-22-2015 10:19-0400 Pulse Oximetry 98 % [facility] 09-22-2015 10:19-0400 Respiratory Rate 18 /min [facility] 09-22-2015 10:19-0400 Weight 74.96 kg [facility] 09-08-2015 11:54-0400 BMI (Body Mass Index) 30.04 kg/m2 [facility] 09-08-2015 11:54-0400 BP Diastolic 70 mm[Hg] [facility] 09-08-2015 11:54-0400 BP Systolic 118 mm[Hg] [facility] 09-08-2015 11:54-0400 BSA (Body Surface Area) 1.81 m2 [facility] 09-08-2015 11:54-0400 Height 157.48 cm [facility] 09-08-2015 11:54-0400 Pulse (Heart Rate) 75 /min [facility] Part[facility] 09-08-2015 11:54-0400 Pulse Oximetry 97 % [facility] 09-08-2015 11:54-0400 Respiratory Rate 18 /min [facility] 09-08-2015 11:54-0400 Weight 74.5 kg [facility] 09-08-2015 10:54-0400 BMI (Body Mass Index) 30.04 kg/m2 [facility] tners [facility] 09-08-2015 10:54-0400 BP Diastolic 70 mm[Hg] [facility] 09-08-2015 10:54-0400 BP Systolic 118 mm[Hg] [facility] 09-08-2015 10:54-0400 BSA (Body Surface Area) 1.81 m2 [facility] 09-08-2015 10:54-0400 Height 157.48 cm [facility] 09-08-2015 10:54-0400 Pulse (Heart Rate) 75 /min [facility] Partne rs [facility] 09-08-2015 10:54-0400 Pulse Oximetry 97 % [facility] 09-08-2015 10:54-0400 Respiratory Rate 18 /min [facility] 09-08-2015 10:54-0400 Weight 74.5 kg [facility] Encounters Encounter Date Encounter Type Care Provider Facility Start: 04-23-2024 End: 04-24-2024 Emergency department patient visit Sami Jasso MD Work Phone: [facility] ED Comment on above: Transportation unava ilable (Primary Dx) Start: 04-23-2024 End: 04-23-2024 Emergency department patient visit Alberta Medeiros MD Work Phone: [facility] ED Comment on above: Stroke-like symptom (Primary Dx); Migraine variant Start: 03-05-2024 End: 03-16-2024 Telephone encounter Carito Maloney PT [facility] Comment on above: Seek NC/NS (Contact 03/06 and ask for update on status and note need of guarentee of being present for PT Eval to enable a rs.); FU (Contacted to request status of Gail in regards to Miguel was notified she was transferred over. I spoke to nurse and she said reading paperwork it details she had an PT screening there at [facility]; she replied she is going to look into and contact me back re: OP PT.) Start: 02-25-2024 End: 02-25-2024 Bamboo flowsheet Lucy Gilbert DO Work Phone: [facility] Start: 02-25-2024 End: 02-25-2024 Bamboo flowsheet Lucy Gilbert DO Work Phone: [facility] Start: 02-25-2024 End: 02-25-2024 Patient encounter procedure Lucy Gilbert DO Work Phone: [facility] Comment on above: Lumbar radiculopathy (Primary Dx) Start: 02-25-2024 End: 02-25-2024 ambulatory LUCY GILBERT Not Available Start: 02-18-2024 End: 02-18-2024 ambulatory VALDEMARER OFELIA Not Available Start: 02-18-2024 End: 02-18-2024 Office outpatient new 45 minutes Lucy Gilbert DO Work Phone: [facility] Comment on above: Gait instability (Pr imary Dx); Tardive dyskinesia; Psychiatric disturbance; [place] use Start: 02-18-2024 End: 02-18-2024 Bamboo flowsheet Lucy Gilbert DO Work Phone: [facility] Start: 02-18-2024 End: 02-18-2024 Bamboo flowsheet Lucy Gilbert DO Work Phone: [facility] Start: 02-11-2024 ambulatory Karla Clark Facility :[facility] Start: 01-27-2024 End: 01-27-2024 [facility]QHC visit, estab pt Vida Culp CNP Work Phone: [facility] Work Phone: Start: 12-18-2023 Non-patient / Non-visit RODNEY Clark Work Phone: [facility] Work Phone: Start: 12-16-2023 End: 12-24-2023 Evaluation and management of inpatient MEMBERSHIP COUNSELORMachelle Clark Work Phone: [facility]-[address] [place] [address] Work Phone: Start: 11-26-2023 Registered Recurring MEMBERSHIP COUNSELOR Gary mary anne Amber Work Phone: [facility] Start: 11-18-2023 End: 11-18-2023 ambulatory ALANNAH JAMES Not Available Start: 10-04-2023 End: 10-04-2023 FQHC visit, estab pt Karla Clark CNP Work Phone: [facility] Work Phone: Start: 10-04-2023 End: 10-04-2023 General Karla Clark CNP Work Phone: [facility] Work Phone: Start: 10-04-2023 End: 10-04-2023 Patient encounter procedure Karla Clark CNP Work Phone: [facility] Work Phone: Start: 09-27-2023 End: 09-27-2023 ambulatory YANDEL DANIEL Facility:[facility] Start: 09-27-2023 End: 09-27-2023 Patient encounter procedure Yandel Daniel MD Work Phone: Otolaryngology Comment on above: Nontoxic multinodula r goiter (Primary Dx); Thyroid nodule Start: 09-18-2023 End: 09-18-2023 ambulatory ALANNAH JAMES Not Available Start: 08-28-2023 End: 08-28-2023 ambulatory ALANNAH JAMES Not Available Start: 08-20-2023 End: 08-20-2023 Admission to same day surgery center [facility] Start: 08-20-2023 End: 08-20-2023 ambulatory NON STAFF [facility] Work Phone: Start: 08-16-2023 Non-patient / Non-visit [facility] Work Phone: Start: 08-15-2023 End: 08-20-2023 Evaluation and management of inpatient [address] Work Phone: Start: 08-14-2023 End: 08-14-2023 ambulatory ALANNAH JAMES Not Available Start: 08-14-2023 End: 08-14-2023 ambulatory JOHAN HOWELL Not Available Start: 08-09-2023 Telephone encounter Yandel mccollum MD Work Phone: [facility] Comment on above: Patient Question Start: 07-16-2023 [...] Not Available Start: 06-28-2023 End: 06-28-2023 ambulatory [facility] Facility:[facility] Start: 06-18-2023 End: 06-22-2023 ambulatory [facility] Facility:[facility] Start: 05-30-2023 End: 05-31-2023 ambulatory [facility] Facility:[facility] Start: 05-30-2023 End: 05-30-2023 ambulatory [facility] Facility:[facility] Start: 05-30-2023 Encounter for other preprocedural examination [facility] Start: 05-22-2023 End: 05-22-2023 Patient encounter procedure Karla Clark CNP Work Phone: [facility] Work Phone: Start: 05-22-2023 End: 05-22-2023 FQHC visit, estab pt Karla Clark UPPER INSPECTOR Work Phone: [facility] Work Phone: Start: 05-22-2023 End: 05-22-2023 General Karla Clark UPPER INSPECTOR Work Phone: [facility] Work Phone: Start: 04-11-2023 End: 04-12-2023 ambulatory [facility] Facility:[facility] Start: 03-26-2023 End: 03-28-2023 Evaluation and management of inpatient MEMBERSHIP COUNSELOR Karla Clark Work Phone: [facility] Work Phone: Start: 03-26-2023 End: 03-28-2023 observation encounter RODNEY Clark Work Phone: [facility] Work Phone: Start: 03-26-2023 End: 03-28-2023 ambulatory Joe Davis Facility:[facility] Start: 03-11-2023 End: 03-15-2023 Evaluation and management of inpatient RODNEY Clark Work Phone: [facility] Work Phone: Start: 03-11-2023 End: 03-11-2023 Departed Referred RODNEY Clark Work Phone: [facility] Work Phone: Start: 01-30-2023 End: 01-31-2023 [facility] Start: 12-12-2022 Office outpatient vi sit 15 minutes [facility] Start: 12-12-2022 End: 12-12-2022 ambulatory MEMBERSHIP COUNSELOR Karla Clark Work Phone: [facility] Work Phone: Start: 12-12-2022 End: 12-12-2022 Patient encounter procedure RODNEY Clark Work Phone: [facility] Start: 11-19-2022 End: 02-28-2023 General Karla Clark UPPER INSPECTOR Work Phone: [facility] Work Phone: Start: 11-19-2022 End: 02-28-2023 FQHC visit, estab pt Karla Clark UPPER INSPECTOR Work Phone: [facility] Work Phone: Start: 10-31-2022 Postop follow up vis it related to original px [facility] Start: 10-31-2022 End: 10-31-2022 ambulatory PHYSICIAN NO [facility] Work Phone: Start: 10-31-2022 End: 10-31-2022 Patient encounter procedure PHYSICIAN NO [facility] Start: 10-31-2022 End: 10-31-2022 ambulatory REKHA GALICIA Facility: Start: 2022 End: 2022 ambulatory [facility] Other [facility] Other Start: 2022 Telephone encounter [facility] Start: 10-23-2022 Registered Recurring RODNEY Clark Work Phone: [facility] Start: 10-05-2022 End: 10-05-2022 ambulatory [facility] Other [facility] Other Start: 10-05-2022 Telephone encounter [facility] Start: 10-03-2022 Postop follow up vis it related to original px [facility] Start: 10-03-2022 End: 10-03-2022 ambulatory PHYSICIAN NO [facility] Other Start: 10-03-2022 End: 10-03-2022 Patient encounter procedure PHYSICIAN NO [facility] Start: 09-18-2022 End: 09-18-2022 FQHC visit, estab pt Karla Clark CNP Work Phone: [facility] Work Phone: Start: 09-18-2022 End: 09-18-2022 General Karla Clark CNP Work Phone: [facility] Work Phone: Start: 09-13-2022 End: 09-14-2022 Admission to same day surgery center PHYSICIAN NO [facility] Start: 09-13-2022 End: 09-14-2022 ambulatory PHYSICIAN NO [facility] Work Phone: Start: 09-11-2022 Telephone encounter [facility] Start: 09-11-2022 End: 09-11-2022 ambulatory MEMBERSHIP COUNSELOR Karla Clark Work Phone: [facility] Work Phone: Start: 09-11-2022 End: 09-11-2022 Patient encounter procedure MEMBERSHIP COUNSELORMachelle Clark Work Phone: [facility] Work Phone: Start: 09-10-2022 FQHC visit new patient [facility] Start: 09-10-2022 End: 09-10-2022 ambulatory [facility] Other [facility] Other Start: 09-10-2022 End: 09-10-2022 Patient encounter procedure DO [facility] Work Phone: [facility] Start: 09-06-2022 End: 09-06-2022 ambulatory MS KARLA CLARK Facility:[facility] Start: 08-27-2022 End: 08-27-2022 General Carolin Nino LISWS Work Phone: [facility] Work Phone: Start: 08-27-2022 End: 08-27-2022 Adult health examination Karla Clark CNP Work Phone: [facility] Work Phone: Start: 08-27-2022 End: 08-27-2022 FQHC visit, estab pt Karla Clark UPPER INSPECTOR Work Phone: [facility] Work Phone: Start: 08-22-2022 End: 08-22-[address] DOCTOR CHAVEZ Facility:[facility] Start: 08-16-2022 End: 08-17-2022 ambulatory [facility] Start: 08-16-2022 End: 08-16-2022 Subsequent hospital visit by physician Karla Clark MEMBERSHIP COUNSELOR - UPPER INSPECTOR Work Phone: [facility] Laboratory Comment on above: Cutaneous candidiasi s; Screening for malignant neoplasm of cervix Start: 08-03-2022 End: 08-03-2022 ambulatory REKHA GALICIA Facility:[facility] Start: 06-18-2022 End: 06-18-2022 FQHC visit, estab pt Karla Clark CNP Work Phone: [facility] Work Phone: Start: 03-22-2022 End: 03-22-2022 FQHC visit, estab pt Yin Feliz LPCC-S Work Phone: [facility] Work Phone: Start: 03-20-2022 End: 03-20-2022 FQHC visit, estab pt Yin Feliz LPCC-S Work Phone: [facility] Work Phone: Start: 03-06-2022 End: 03-07-2022 ambulatory [facility] Start: 03-06-2022 Encounter for other preprocedural examination [facility] Start: 03-06-2022 End: 03-06-2022 Preoperative state [facility] Room [facility] Echocardiograph y Start: 03-06-2022 End: 03-06-2022 Subsequent hospital visit by physician [facility] Echo Room [facility] Echocardiography Comment on above: Pre-operative cleara nce; Abnormal EKG; History of ME (myocardial infarction) Start: 12-20-2021 End: 12-20-2021 FQHC visit, estab pt Karla Clark UPPER INSPECTOR Work Phone: [facility] Work Phone: Start: 11-03-2021 End: 11-03-2021 FQHC visit, estab pt Yin Felzi LPCC-S Work Phone: [facility] Work Phone: Start: 11-03-2021 End: 11-03-2021 FQHC visit, estab pt Yin Feliz LPCC-S Work Phone: [facility] Work Phone: Start: 09-28-2021 End: 11-03-2021 Pre-admission assessment Deepti Britt [facility] Start: 08-01-2021 End: 08-01-2021 Patient encounter status Karla Clark MEMBERSHIP COUNSELOR - UPPER INSPECTOR Work Phone: [facility] Laboratory Start: 08-01-2021 End: 08-03-2021 Subsequent hospital visit by physician [facility] Mri Scanner [facility] Laboratory Comment on above: Pre-procedure lab ex am Breast lump on right side at 4 o'clock position Start: 07-28-2021 End: 07-28-2021 FQHC visit, estab pt Karla Clark UPPER INSPECTOR Work Phone: [facility] Work Phone: Start: 05-08-2021 End: 05-08-2021 Adult health examination Karla Clark UPPER INSPECTOR Work Phone: [facility] Work Phone: Start: 05-08-2021 End: 05-08-2021 FQHC visit, estab pt Karla Clark UPPER INSPECTOR Work Phone: [facility] Work Phone: Start: 11-11-2020 End: 11-13-2020 Subsequent hospital visit by physician [facility]antz [facility] Radiologist [facility] Mammography Comment on above: History of breast bi opsy Start: 07-21-2020 End: 07-21-2020 Subsequent hospital visit by physician Karla RANDOLPH Laboratory Start: 07-14-2020 End: 07-14-2020 Subsequent hospital visit by physician Karla RANDOLPH Laboratory Start: 07-14-2020 End: 07-14-2020 [facility] Start: 07-08-2020 End: 07-08-2020 Subsequent [facility] Start: 06-30-2020 End: 07-02-2020 Subsequent hospital visit by physician [facility] Lab Drawing Room [facility] Laboratory Comment on above: Arrived Hyperprolactinemia ( HCC) Start: 06-17-2020 End: 06-17-2020 Established patient Karla Clark Work Phone: [facility] Work Phone: Start: 06-08-2020 End: 06-10-2020 Subsequent hospital visit by physician Frantz Gen Radiologist [facility] Ultrasound Comment on above: Abnormal ultrasound of breast; Lesion of breast Start: 06-08-2020 End: 06-10-2020 Subsequent hospital visit by physician [facility] Mammography Room [facility] Mammography Comment on above: Abnormal mammogram Start: 06-06-2020 End: 06-06-2020 Established patient Karla Clark Work Phone: [facility] Work Phone: Start: 06-06-2020 End: 06-06-2020 Subsequent hospital visit by physician Karla [facility] Laboratory Start: 05-06-2020 End: 05-06-2020 Patient encounter procedure Karla Floresen Work Phone: [facility] Work Phone: Start: 04-04-2020 End: 04-06-2020 Subsequent hospital visit by physician Frantz Ultrasound Room [facility] Ultrasound Comment on above: Abnormal mammogram Start: 03-31-2020 End: 03-31-2020 Subsequent hospital visit by physician Karla [place] [facility] Start: 03-31-2020 End: 03-31-2020 Established patient Karla Clark Work Phone: [facility] Work Phone: Start: 03-14-2020 End: 03-14-2020 Nursing evaluation of patient and report Karla Floresen Work Phone: [facility] Work Phone: Start: 03-10-2020 End: 03-10-2020 Subsequent hospital visit by physician Karla [place] [facility] Start: 03-04-2020 End: 03-04-2020 Patient encounter procedure Karla Clark Work Phone: [facility] Work Phone: Start: 02-26-2020 End: 02-26-2020 Patient encounter procedure Karla Clark Work Phone: [facility] Work Phone: Start: 02-26-2020 End: 02-26-2020 Established patient Karla Clark Work Phone: [facility] Work Phone: Start: 11-19-2019 End: 11-19-2019 Patient encounter procedure Carolin Oneill Work Phone: [facility] Work Phone: Start: 11-19-2019 End: 11-19-2019 Telemedicine consultation with patient Karla Clark Work Phone: [facility] Work Phone: Start: 08-31-2019 End: 08-31-2019 Telemedicine consultation with patient Karla Clark Work Phone: [facility] Work Phone: Start: 08-03-2019 End: 08-03-2019 Subsequent hospital visit by physician Karla RANDOLPH [facility] [facility] Start: 07-23-2019 End: 07-23-2019 Established patient Karla Clark Work Phone: [facility] Work Phone: Start: 06-05-2019 End: 06-05-2019 Patient encounter procedure Karla Clark Work Phone: [facility] Work Phone: Start: 05-28-2019 End: 05-28-2019 Patient encounter procedure Telma Connor Work Phone: [facility] Work Phone: Start: 04-23-2019 End: 04-23-2019 ambulatory Karla Amber Work Phone: [facility] Work Phone: Start: 04-15-2019 End: 04-15-2019 Established patient Brandy Kelley Work Phone: [facility] Work Phone: Start: 04-10-2019 End: 04-12-2019 Subsequent hospital visit by physician Frantz Gen Radiologist [facility] Ultrasound Comment on above: Abnormal mammogram o f left breast Start: 03-11-2019 End: 03-13-2019 Subsequent hospital visit by physician Frantz Ultrasound Room [facility] Ultrasound Comment on above: Duct ectasia of jr st, left Start: 03-05-2019 End: 03-05-2019 Established patient Karla Clark Work Phone: [facility] Work Phone: Start: 02-16-2019 End: 02-18-2019 Subsequent hospital visit by physician Frantz Xr Dr Room 2 [facility] Radiology Comment on above: Right foot pain Start: 12-22-2018 End: 12-22-2018 Established patient Karla Clark Work Phone: [facility] Work Phone: Start: 11-11-2018 End: 11-11-2018 Patient encounter procedure Karla Clark Work Phone: [facility] Work Phone: Start: 11-06-2018 End: 11-06-2018 Established patient Karla Clark Work Phone: [facility] Work Phone: Start: 09-11-2018 End: 09-11-2018 Established patient Karla Clark Work Phone: [facility] Work Phone: Start: 09-11-2018 End: 09-11-2018 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 Karla Clark UPPER INSPECTOR Work Phone: [facility] Work Phone: Start: 09-04-2018 End: 09-04-2018 Established patient Karla Clark Work Phone: [facility] Work Phone: Start: 09-04-2018 End: 09-04-2018 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 Karla Clark UPPER INSPECTOR Work Phone: [facility] Work Phone: Start: 07-31-2018 End: 07-31-2018 Established patient Karla Clark Work Phone: [facility] Work Phone: Start: 05-08-2018 Office outpatient vi sit 15 minutes Karla Clark Other [facility] Start: 05-08-2018 End: 05-08-2018 Patient encounter procedure Karla Clark UPPER INSPECTOR Work Phone: [facility] Work Phone: Start: 03-20-2018 End: 03-20-2018 Patient encounter procedure Conversion Provider Work Phone: [facility] Work Phone: Start: 03-20-2018 Office outpatient vi sit 5 minutes Karla Clrak Other [facility] Start: 02-13-2018 Medical Karla Clark Other [facility] Start: 02-13-2018 End: 02-13-2018 Office outpatient visit 5 minutes Karla Clark Other [facility] Start: 02-13-2018 Evaluation and manag ement of established outpatient in office or other outpatient facility Karla Clark [facility] Start: 02-11-2018 Medical Karla Clark Other [facility] Start: 02-11-2018 End: 02-11-2018 Office outpatient visit 5 minutes Karla Clark Other [facility] Start: 02-11-2018 End: 02-11-2018 Patient encounter procedure Karla Clark CNP Work Phone: [facility] Work Phone: Start: 12-19-2017 End: 12-19-2017 Office outpatient visit 15 minutes Karla Clark Other [facility] Start: 12-19-2017 End: 12-19-2017 Patient encounter procedure Karla Clark CNP Work Phone: [facility] Work Phone: Start: 10-08-2017 End: 10-08-2017 Patient encounter procedure Karla Clark CNP Work Phone: [facility] Work Phone: Start: 10-08-2017 End: 10-08-2017 Office outpatient visit 15 minutes Karla Clark Other [facility] Start: 09-17-2017 End: 09-17-2017 Patient encounter procedure Karla Clark CNP Work Phone: [facility] Work Phone: Start: 09-17-2017 Laboratory examinati on, unspecified Karla Clark [facility] Start: 09-17-2017 Physical examination Karla Clark [facility] Start: 09-17-2017 Comprehensive metabo lic panel Karla Clark [facility] Start: 09-17-2017 End: 09-17-2017 Office outpatient visit 15 minutes Karla Clark Other [facility] Start: 07-30-2017 End: 07-30-2017 Periodic preventive med est patient 40-64yrs Karla Clark Other [facility] Start: 05-14-2017 End: 05-14-2017 Office outpatient visit 15 minutes Karla Clark Other [facility] Start: 04-18-2017 End: 04-18-2017 Medical Karla Clark Other [facility] Start: 03-07-2017 End: 03-07-2017 Evaluation and management of established outpatient in office or other outpatient facility Karlajulius Clark [facility] Start: 03-07-2017 End: 03-07-2017 TB Read Karla Clark Other [facility] Start: 03-05-2017 Physical examination Karla Quinones [facility] Start: 03-05-2017 End: 03-05-2017 Office outpatient visit 15 minutes Karla Clark Other [facility] Start: 03-05-2017 Tobacco use cessatio n intensive >10 minutes Karlajulius Clark [facility] Start: 01-01-2017 Ct head/brain w/o & w/contrast material Karlajulius Clark [facility] Start: 01-01-2017 End: 01-01-2017 Office outpatient visit 15 minutes Karla Clark Other [facility] Start: 12-06-2016 End: 12-06-2016 Office outpatient visit 15 minutes Karla Clark Other [facility] Start: 11-06-2016 End: 11-06-2016 Office outpatient visit 15 minutes Karla Clark Other [facility] Start: 11-06-2016 Urinalysis qual/semi quant except immunoassays Karlajulius Clark [facility] Start: 09-27-2016 End: 09-27-2016 Office outpatient visit 15 minutes Karla Clark Other [facility] Start: 08-21-2016 End: 08-21-2016 Office outpatient visit 15 minutes Karla Clark Other [facility] Start: 06-26-2016 End: 06-26-2016 Office outpatient visit 15 minutes Karla Clark Other [facility] Start: 06-26-2016 Tobacco use cessatio n intermediate 3-10 minutes Karla Clark [facility] Start: 06-12-2016 End: 06-12-2016 Office outpatient visit 15 minutes Karla Clark Other [facility] Start: 05-22-2016 End: 05-22-2016 Office outpatient visit 25 minutes Karla Clark Other [facility] Start: 04-10-2016 End: 04-10-2016 Office outpatient visit 15 minutes Karlajulius Clark Other [facility] Start: 03-20-2016 Tobacco use cessatio n intermediate 3-10 minutes Karla Clark [facility] Start: 03-20-2016 End: 03-20-2016 Office outpatient visit 15 minutes Karla Clark Other [facility] Start: 03-09-2016 Evaluation and manag ement of established outpatient in office or other outpatient facility Karla Clark [facility] Start: 03-09-2016 End: 03-09-2016 Office outpatient visit 5 minutes Karla Clark Other [facility] Start: 03-06-2016 End: 03-06-2016 Office outpatient visit 15 minutes Karla Clark Other [facility] Start: 02-21-2016 End: 02-21-2016 Office outpatient visit 15 minutes Karlajulius Clark Other [facility] Start: 01-12-2016 Tobacco use cessatio n intermediate 3-10 minutes Karlajulius Clark [facility] Start: 01-11-2016 End: 01-11-2016 Office outpatient visit 15 minutes Karlajulius Clark Other [facility] Start: 12-08-2015 End: 12-08-2015 Office outpatient visit 15 minutes Karlajulius Clark Other [facility] Start: 05-24-2016 Culture bct isol&prs mptv id isolate ea urine [facility] Start: 10-25-2015 End: 10-25-2015 Office outpatient visit 15 minutes Karla Clark Other [facility] Start: 09-22-2015 End: 09-22-2015 Office outpatient visit 15 minutes Karlajulius Clark Other [facility] Start: 09-08-2015 Iadna chlamydia trachomatis amplified probe tq [facility] Start: 09-08-2015 End: 09-08-2015 Office outpatient visit 15 minutes Karlajulius Clark Other [facility] Procedures Date Procedure Procedure Detail Performing Clinician Start: 04-23-2024 Urinalysis microscopic only Jesus Mims MD Work Phone: Start: 04-23-2024 Urnls dip stick/tablet rgnt auto w/o microscopy Jesus Mims MD Work Phone: Start: 04-23-2024 Mri brain brain stem w/o contrast material Lindsey Marmolejo MD Work Phone: Start: 04-23-2024 Radiologic exam chest single view Jesus Mims MD Work Phone: Start: 04-23-2024 End: 04-23-2024 Ct head/brain w/o contrast material Jesus Mims MD Work Phone: Start: 04-23-2024 End: 04-23-2024 Comprehensive metabolic panel Jesus Mims MD Work Phone: Start: 04-23-2024 CALCIUM, IONIC (POC) Alberta Medeiros MD Work Phone: Start: 04-23-2024 CREATININE W/GFR POINT OF CARE Alberta Medeiros MD Work Phone: Start: 04-23-2024 ELECTROLYTES PLUS Alberta Medeiros MD Work Phone: Start: 04-23-2024 LACTIC ACID,POINT OF CARE Alberta Medeiros MD Work Phone: Start: 04-23-2024 VENOUS BLOOD GAS, POINT OF CARE Alberta Medeiros MD Work Phone: Start: 02-25-2024 End: 02-25-2024 Needle emg ea extremty w/paraspinl area complete Lucy Gilbert Work Phone: Start: 01-27-2024 Behav assmt w/score & docd/stand instrument Vida Culp UPPER INSPECTOR Work Phone: Start: 01-27-2024 Current tobacco non-user cad cap copd pv dm Vida Culp UPPER INSPECTOR Work Phone: Start: 01-27-2024 Depression screening Visit For: Screening Exam Depression Vida Culp CNP Work Phone: Start: 01-27-2024 Most recent diastolic blood pressure < 80 mm hg Vida Culp UPPER INSPECTOR Work Phone: Start: 01-27-2024 Most recent systolic blood press 130-139mm hg Vida Culp UPPER INSPECTOR Work Phone: Start: 10-04-2023 Behav assmt w/score & docd/stand instrument Karla Clark CNP Work Phone: Start: 10-04-2023 Current tobacco smoker Karla Clark CNP Work Phone: Start: 10-04-2023 FQHC visit, estab pt Karla Amber CNP Work Phone: Start: 10-04-2023 Most recent diastolic blood pressure 80-89 mm hg Karla Amber UPPER INSPECTOR Work Phone: Start: 10-04-2023 Most recent systolic blood press 130-139mm hg Karla Clark UPPER INSPECTOR Work Phone: Start: 10-04-2023 Pneumococcal Prevnar 20 Karla Amber UPPER INSPECTOR Work Phone: Start: 10-04-2023 Pt scrnd tobacco use rcvd tobacco cessation talk Karla Amber UPPER INSPECTOR Work Phone: Start: 08-20-2023 Excision of lesion of cheek Start: 07-16-2023 SKIN / NAIL BIOPSY Dakota A Petitti MD Work Phone: Start: 05-22-2023 Current tobacco smoker Karla Clark UPPER INSPECTOR Work Phone: Start: 05-22-2023 FQ visit, estab pt Karla Clark UPPER INSPECTOR Work Phone: Start: 05-22-2023 Most recent diastolic blood pressure 80-89 mm hg Karla Clark UPPER INSPECTOR Work Phone: Start: 05-22-2023 Most recent systolic blood press 130-139mm hg Karla Clark UPPER INSPECTOR Work Phone: Start: 05-22-2023 Pt scrnd tobacco use rcvd tobacco cessation talk Karla Clark UPPER INSPECTOR Work Phone: Start: 03-26-2023 CT of abdomen and pelvis without contrast MEMBERSHIP COUNSELOR Karla Clark Work Phone: Start: 03-14-2023 Computed tomography of abdomen and pelvis with contrast MEMBERSHIP COUNSELOR Karla Clark Work Phone: Start: 03-12-2023 Urine culture MEMBERSHIP COUNSELORMachelle Clark Work Phone: Start: 02-28-2023 Asthma Control Test/Baseline Evaluation Aaron Garcia Penix UPPER INSPECTOR Work Phone: Start: 02-28-2023 Current tobacco smoker Aaron Garcia Penix UPPER INSPECTOR Work Phone: Start: 02-28-2023 FQ visit, estab pt Lina Penix UPPER INSPECTOR Work Phone: Start: 02-28-2023 Most recent diastolic blood pressure < 80 mm hg Lina Penix UPPER INSPECTOR Work Phone: Start: 02-28-2023 Most recent systolic blood pressure <130 mm hg Lina Penix UPPER INSPECTOR Work Phone: Start: 02-28-2023 Pt scrnd tobacco use rcvd tobacco cessation talk Lina Penix UPPER INSPECTOR Work Phone: Start: 02-28-2023 Screening for malignant neoplasm of breast Visit For: Screening Exam Malignant Neoplasm Breast Lina Penix UPPER INSPECTOR Work Phone: Start: 12-12-2022 Plain X-ray of right shoulder MEMBERSHIP COUNSELOR Karla Clark Work Phone: Start: 11-19-2022 Current tobacco smoker Karla Clark CNP Work Phone: Start: 11-19-2022 FQ visit, estab pt Karla Clark CNP Work Phone: Start: 11-19-2022 Most recent diastolic blood pressure < 80 mm hg Karla Clark UPPER INSPECTOR Work Phone: Start: 11-19-2022 Most recent systolic blood press 130-139mm hg Karla Clark CNP Work Phone: Start: 10-31-2022 Plain X-ray of right shoulder PHYSICIAN NO FAMILY Start: 10-03-2022 Plain X-ray of right shoulder PHYSICIAN NO FAMILY Start: 09-21-2022 Surgical procedure Karla Clark CNP Work Phone: Start: 09-18-2022 Current tobacco smoker Karla Clark CNP Work Phone: Start: 09-18-2022 FQ visit, estab pt Karla Clark CNP Work Phone: Start: 09-18-2022 Most recent diastolic blood pressure < 80 mm hg Karla Clark CNP Work Phone: Start: 09-18-2022 Most recent systolic blood pres>/equal 140 mm hg Karla Clark CNP Work Phone: Start: 09-18-2022 Pt scrnd tobacco [...] Start: 08-27-2022 Current tobacco smoker Karla Clark UPPER INSPECTOR Work Phone: Start: 08-27-2022 FQHC visit, estab pt Karla Clark CNP Work Phone: Start: 08-27-2022 Most recent diastolic blood pressure < 80 mm hg Karla Clark CNP Work Phone: Start: 08-27-2022 Most recent systolic blood pressure <130 mm hg Karla Clark UPPER INSPECTOR Work Phone: Start: 06-18-2022 Current tobacco smoker [...] Karla Clark CNP Work Phone: Start: 03-20-2022 FQ visit, MH estab pt Yin alexander LPCC-S [...] 11-03-2021 Psychotherapy w/patient 30 minutes Yin Feliz [facility] Work Phone: Start: 08-10-2021 Microscopic observation [Identifier] in Cervix by Cyto stain [facility] Room Start: 08-01-2021 Mri breast without&with contrast w/cad bilateral She Spencer MEMBERSHIP COUNSELOR - CNM Work Phone: Start: 08-01-2021 Creatinine blood She Spencer MEMBERSHIP COUNSELOR - CNM Work Phone: Start: 07-28-2021 Pt [...] Yandel Daniel MD Work Phone: Start: 11-11-2020 End: 11-11-2020 Diagnostic mammography computer-aided detcj bi She Spencer MEMBERSHIP COUNSELOR - CNM Work Phone: Start: 07-21-2020 Drug screen quantitative lithium Pinky Bakies Work Phone: Start: 07-14-2020 Drug screen quantitative lithium Pinyk Bakies Work Phone: Start: 07-14-2020 Lipid panel [...] Phone: Start: 06-06-2020 Assay of prolactin Rekha Gonzalez Gemat Work Phone: Start: 05-06-2020 Current tobacco smoker Karla Amber Work Phone: Start: 05-06-2020 Diast bp <80 [...] instrm Karla Clark Work Phone: Start: 03-10-2020 Assay of thyroid stimulating hormone tsh Karla Clark Work Phone: Start: 03-10-2020 Blood count complete auto&auto difrntl wbc Karla Clark Work Phone: Start: 03-10-2020 Comprehensive metabolic panel Karla Clark Work Phone: Start: 03-10-2020 Lipid panel Karla Clark Work Phone: Start: 08-31-2019 Patient gave verbal consent for telehealth Karla Clark Start: 08-03-2019 Assay of thyroid stimulating hormone tsh Rekha Galicia Work Phone: Start: 08-03-2019 Creatinine blood Rekha Galicia Work Phone: Start: 08-03-2019 Drug screen quantitative lithium Rekha Galicia Work Phone: Start: 08-03-2019 Glucose quantitative blood xcpt reagent strip Rekha Galicia Work Phone: Start: 08-03-2019 Lipid panel Rekha Galicia Work Phone: Start: 07-23-2019 Diast bp 80-89 [...] Phone: Start: 07-31-2018 ABNORMAL ELECTROCARDIOGRAM Karla Clark UPPER INSPECTOR Work Phone: Start: 07-31-2018 ASTHMA Karla Clark UPPER INSPECTOR Work Phone: Start: 07-31-2018 BIPOLAR DISORDER NOS Karla Clark UPPER INSPECTOR Work Phone: Start: 07-31-2018 CARDIOVASCULAR DISORDERS Karla Clark CN P Work Phone: Start: 07-31-2018 DEPRESSION Karla Amber UPPER INSPECTOR Work Phone: Start: 07-31-2018 PSYCHIATRIC DISORDERS Karla Amber UPPER INSPECTOR Work Phone: Start: 07-31-2018 RESPIRATORY DISORDERS Karla Clark UPPER INSPECTOR Work Phone: Start: 07-31-2018 Urnls dip stick/tablet [...] Karla Clark Start: 08-21-2016 Physical Therapy. Karla Amber Start: 07-31-2016 Assay of free thyroxine Karla Clark Start: 07-31-2016 Assay of thyroid stimulating hormone tsh Karla Clark Start: 07-31-2016 Blood count complete automated Karla Amber Start: 07-31-2016 Comprehensive metabolic panel Karla Amber Start: 07-31-2016 Hemoglobin glycosylated a1c Karla Clark Start: 07-31-2016 Lipid panel Karla Clark Start: 05-15-2016 Neurology. Karla Clark Start: 01-11-2016 PHQ9 Administered Karla Amber Start: 01-11-2016 SBIRT- Full Screen *POSITIVE* Referred to Provider Karla Clark Start: 12-08-2015 End: 12-08-2015 Urnls dip stick/tablet rgnt non-auto w/o micrscp Karla Clark Start: 10-25-2015 End: 10-25-2015 Culture bct isol&prsmptv id isolate ea urine Karla Clark Start: 10-25-2015 End: 10-25-2015 Urnls dip stick/tablet rgnt non-auto w/o micrscp Karla Floresen Start: 09-22-2015 Pap not indicated Karla Clark Start: 09-08-2015 Assay of free thyroxine Karla Clark Start: 09-08-2015 Assay of thyroid stimulating hormone tsh Karla Clark Start: 09-08-2015 Colorectal Screening Results in Chart Karla Amber Start: 09-08-2015 Glucose quantitative blood xcpt reagent [...] DTaP/Tdap/Td vaccine (2 - Td or Tdap) [facility] Start: 12-28-2027 DTaP/Tdap/Td vaccine (3 - Td or Tdap) DTaP/Tdap/Td vaccine (3 - Td or Tdap) [facility] Start: 12-28-2027 DTaP/Tdap/Td vaccine (3 - Td) DTaP/Tdap/Td vaccine (3 - Td) [place], [place] Start: 12-28-2027 Urine microalbumin profile DTaP,Tdap,Td Vaccine (3 - Td or Tdap) [facility] Start: 06-20-2026 Diabetes Screening Diabetes Screening [facility] Start: 11-25-2025 Lipid panel [facility] Start: 07-14-2025 Lipid panel [facility] Start: 07-08-2025 Lipid panel Lipid screen [facility] Work Phone: Start: 04-23-2025 GFR test (Diabetes, CKD 3-4, OR last GFR 15-59) GFR test (Diabetes, CKD 3-4, OR last GFR 15-59) [facility] Start: 03-10-2025 Lipid panel Lipid screen [place], [place] Start: 08-18-2024 End: 08-18-2024 Patient encounter procedure 08/18/2024 1:00 PM EDT Office Visit [facility] [address] [place] [address] Musa Lua, [address] [place], [place] [id number] [facility] Start: 08-10-2024 Screening for malignant neoplasm of cervix [facility] Start: 08-03-2024 End: 08-03-2024 Patient encounter procedure 08/03/2024 1:20 PM EST Office Visit [facility] Part of [address] [address] Héctor Turner MD [address] [place] [address] One year follow up [facility] Part of [facility] Comment on above: One year follow up Start: 08-02-2024 Lipid panel Lipid screen [facility] [place], [place] Start: 06-27-2024 COVID-19 Vaccine () COVID-19 Vaccine () [place] [facility] Start: 06-21-2024 Creatinine measurement Serum Creatinine [facility] Start: 06-20-2024 Complete blood count Hemoglobin/Hematocrit [facility] Start: 05-30-2024 BP Controlled (<130/80) BP Controlled (<130/80) [facility] in Start: 04-06-2024 FQHC visit, estab pt Medical Established Patient [facility] Work Phone: Start: 04-06-2024 End: 04-06-2024 Patient encounter procedure 04/06/2024 1:00 PM EST Office Visit [facility] [place] [address] [place] [address] Lulu Morocho NP [address] [place] [address] [facility] [place] [address] Start: 03-19-2024 End: 03-19-2024 Patient encounter procedure 03/19/2024 2:30 PM EDT Office Visit [facility] [address] [place] [address] Dakota Mack MD [address] [place] [address] [facility] Start: 02-26-2024 End: 02-26-2024 ambulatory 02/26/2024 2:00 PM EDT Evaluation [facility] [address] [place] [address] Carito Maloney, PT [facility] Start: 02-25-2024 End: 02-25-2024 Patient encounter procedure [facility] Comment on above: Arrived Start: 02-18-2024 End: 02-17-2025 EMG 2 Extremities EMG 2 Extremities Neurology Routine Gait instability Expected: 02/18/2024, Expires: 02/17/2025 [facility] Work Phone: Comment on above: Expected: 02/18/2024, Expires: Start: 02-02-2024 Influenza vaccination [facility] Start: 01-27-2024 Neurology [facility] Work Phone: Comment on above: Note: Please make a referral to: Start: 01-27-2024 End: 01-27-2024 Patient education based on identified need [facility] Start: 01-02-2024 Influenza vaccination Flu vaccine (#1) [facility] Start: 12-24-2023 [facility] Start: 11-15-2023 Lipid screen Lipid screen [facility] [place] Start: 11-15-2023 Physical Therapy [facility] Work Phone: Comment on above: Note: Please make a referral to: Start: 11-03-2023 Cologuard [facility] Start: 10-04-2023 FQHC visit, estab pt Medical Established Patient [facility] Work Phone: Start: 10-04-2023 End: 10-04-2023 Patient education based on identified need [facility] Start: 08-27-2023 End: 08-27-2023 Patient encounter procedure 08/27/2023 Office Visit Obstetrics and Gynecology She Spencer, RODNEY - ADAM [address] [place] [address] [facility] Part of [facility] Start: 08-20-2023 Excision of lesion of cheek OR Cheek Lesion Exc W/Flap Recon (Not Applicable) [facility] Start: 08-20-2023 End: 08-20-2023 [facility] Start: 08-20-2023 [facility] Start: 08-15-2023 Hospital admission [facility] Start: 08-15-2023 [facility] Start: 07-16-2023 End: 07-16-2023 Patient encounter procedure 07/16/2023 1:20 PM EST Office Visit [facility] [address] [place] [id number] Dakota Mack MD [address] [place] [address] Arrived [facility] Comment on above: Arrived Start: 07-11-2023 End: 07-11-2023 Patient encounter procedure 07/11/2023 Office Visit Cardiology Juju Irby PA-C [address] [place] [address] [facility] Part of [facility] Start: 06-03-2023 Advance Directive Discussion Advance Directive Discussion [facility] Start: 06-03-2023 Annual Wellness Visit (Medicare Advantage) Annual Wellness Visit (Medicare Advantage) [facility] Start: 06-03-2023 Behavioral Health Screening Behavioral Health Screening [facility] Start: 06-03-2023 Depression Assessment Depression Assessment [facility] Start: 05-23-2023 FQHC visit, estab pt Medical Established Patient [facility] Work Phone: Start: 05-22-2023 Dermatology [facility] Work Phone: Comment on above: Note: Please make a referral to: anna lima or hillary Start: 05-22-2023 End: 05-22-2023 Patient education based on identified need [facility] Start: 04-20-2023 Urinalysis [facility] Start: 03-30-2023 Mammography Mammogram - Screening ([id number]) [facility] Start: 03-28-2023 FQHC visit, estab pt Medical Established Patient [facility] Work Phone: Start: 03-28-2023 [facility] Start: 03-26-2023 Urine culture Urine Culture [facility] Start: 03-26-2023 Referral to clinical manufacturing intern [facility] Start: 03-26-2023 Hospital admission [facility] Start: 03-15-2023 [facility] Start: 03-13-2023 Referral to clinical manufacturing intern [facility] Start: 03-12-2023 Hospital admission [facility] Start: 03-12-2023 [facility] Start: 03-01-2023 FQHC visit, estab pt Medical Established Patient [facility] [facility] Work Phone: Start: 02-28-2023 FQHC visit, estab pt Medical Established Patient [facility] Work Phone: Start: 02-28-2023 End: 02-28-2023 Patient education based on identified need [facility] Start: 02-01-2023 Covid-19 Vaccine () Covid-19 Vaccine () [facility] Start: 11-19-2022 End: 11-19-2022 Patient education based on identified need [facility] Start: 11-13-2022 FQHC visit, estab pt Medical Established Patient [facility] Work Phone: Start: 09-18-2022 FQHC visit, estab pt Medical Established Patient [facility] Work Phone: Start: 09-18-2022 End: 09-18-2022 Patient education based on identified need [facility] Start: 09-13-2022 [facility] Start: 09-01-2022 CBC W Auto Differential panel - Blood [facility] Start: 09-01-2022 Lipid 1996 panel - Serum or Plasma LIPID PROFILE [facility] Start: 08-27-2022 End: 08-27-2022 Patient education based on identified need [facility] Start: 08-27-2022 End: 08-27-2022 Provider instructions for treatment Intervention and counseling on cessation of tobacco use, 3-10 minutes Discussed medication and nicotine replacement for tobacco cessation [facility] Start: 08-16-2022 End: 08-16-2022 Patient encounter procedure 08/16/2022 Office Visit Obstetrics and Gynecology She Spencer, MEMBERSHIP COUNSELOR - CNM [address] [place], [place] [id number] [facility] OBSTETRICS & GYNECOLOGY [facility] Start: 07-04-2022 End: 07-04-2022 Patient encounter procedure 07/04/2022 Office Visit Cardiology Juju Irby PA-C [address] [place] [address] [facility] CARDIOLOGY [facility] Start: 06-26-2022 FQHC visit, estab pt Medical Established Patient [facility] Work Phone: Start: 06-18-2022 End: 06-18-2022 Patient education based on identified need [facility] Start: 05-08-2022 Screening for malignant neoplasm of colon [facility] Start: 03-20-2022 End: 03-20-2022 Patient education based on identified need [facility] Start: 01-10-2022 Annual Wellness Visit (AWV) Annual Wellness Visit (AWV) [facility] Start: 01-01-2022 Influenza vaccination Flu vaccine (#1) [facility] Start: 12-20-2021 End: 12-20-2021 Patient education based on identified need [facility] Start: 12-15-2021 FQHC visit, estab pt Medical Established Patient [facility] Work Phone: Start: 11-11-2021 Screening for malignant neoplasm of breast [facility] Start: 11-03-2021 Cardiology [facility] Work Phone: Comment on above: Note: Please make a referral to: Start: 11-03-2021 End: 11-03-2021 Patient education based on identified need [facility] Start: 2021 Screening for osteoporosis Bone Density Screening [facility] Start: 10-10-2021 COVID-19 Vaccine (4 - Booster for Moderna series) COVID-19 Vaccine (4 - Booster for Moderna series) [facility] Start: 08-15-2021 End: 08-15-2021 Patient encounter procedure 08/15/2021 Office Visit Obstetrics and Gynecology She Spencer, MEMBERSHIP COUNSELOR - CNM [address] [place], [place] [id number] [facility] OBSTETRICS & GYNECOLOGY Start: 08-14-2021 CBC W Auto Differential panel - Blood [facility] Start: 08-10-2021 End: 08-10-2021 Patient encounter procedure 08/10/2021 Office Visit Obstetrics and Gynecology She Spencer APRN - CNAlexey [address] [place] [address] [facility] OBSTETRICS & GYNECOLOGY [facility] Start: 08-07-2021 COVID-19 Vaccine (4 - Booster for Moderna series) COVID-19 Vaccine (4 - Booster for Moderna series) [facility] Start: 07-28-2021 ENT [facility] Work Phone: Comment on above: Note: Please make a referral to: aliyah GUPTA Start: 07-28-2021 End: 07-28-2021 Patient education based on identified need [facility] Start: 07-28-2021 End: 07-28-2021 Provider instructions for treatment Intervention and counseling on cessation of tobacco use, 3-10 minutes Discussed medication and nicotine replacement for tobacco cessation [facility] Start: 07-03-2021 COVID-19 Vaccine (2 - Pfizer 3-dose series) COVID-19 Vaccine (2 - Pfizer 3-dose series) [facility] Start: 06-08-2021 Screening for malignant neoplasm of breast Breast cancer screen [facility] [place], [place] Start: 05-15-2021 CBC W Auto Differential panel - Blood [facility] Start: 05-15-2021 Lipid 1996 panel - Serum or Plasma LIPID PROFILE [facility] Start: 05-08-2021 End: 05-08-2021 Patient education based on identified need [facility] Start: 05-01-2021 End: 05-01-2021 Patient encounter procedure 05/01/2021 Office Visit Neurology Bhupinder Iniguez MD [address] [place] [address] [facility] NEUROLOGY [facility] Start: 04-04-2021 Screening for malignant neoplasm of breast Breast cancer screen [place], [place] Start: 03-31-2021 Hemoglobin A1c measurement A1C test (Diabetic or Prediabetic) [facility] Start: 03-31-2021 Pneumococcal 65+ years Vaccine (2 - PPSV23 if available, else PCV20) Pneumococcal 65+ years Vaccine (2 - PPSV23 if available, else PCV20) [facility] Start: 03-31-2021 Pneumococcal 65+ years Vaccine (2 - PPSV23 or PCV20) Pneumococcal 65+ years Vaccine (2 - PPSV23 or PCV20) [facility] Start: 02-01-2021 Influenza vaccination Flu vaccine (#1) [facility] Start: 01-29-2021 Cervical cancer screen Cervical cancer screen [place], [place] Start: 01-29-2021 Screening for malignant neoplasm of cervix Cervical cancer screen [place], [place] Start: 10-17-2020 End: 10-17-2020 Office Visit 10/17/2020 Office Visit Neurology Bhupinder Iniguez MD [address] [place] [address] [facility] NEUROLOGY [facility] Start: 08-11-2020 End: 08-11-2020 Office Visit 08/11/2020 Office Visit Obstetrics and Gynecology She Spencer APRN - ADAM [address] [place] [address] [facility] OBSTETRICS & GYNECOLOGY Start: 07-17-2020 [facility] Work Phone: Start: 07-12-2020 End: 07-12-2020 Office Visit 07/12/2020 Office Visit General Surgery Billy Ojeda MD [address] [place] [address] [phone] [facility] GENERAL SURGERY [facility] Start: 07-07-2020 CBC W Auto Differential panel - Blood [facility] Start: 07-07-2020 Lipid 1996 panel - Serum or Plasma LIPID PROFILE [facility] Start: 06-29-2020 BUN + CREATININE [facility] Start: 06-24-2020 [facility] Work Phone: Start: 06-17-2020 Nephrology [facility] Work Phone: Comment on above: Note: Please make a referral to: Start: 06-08-2020 End: 06-08-2020 Appointment 06/08/2020 Appointment Radiology Radiologist, [facility] Ultrasound Start: 06-06-2020 End: 06-06-2020 Patient education based on identified need [facility] Start: 06-06-2020 Medical Established Patient [facility] Work Phone: Start: 05-26-2020 Pneumococcal Vaccine: 65+ (2 of 2 - PPSV23 or PCV20) Pneumococcal Vaccine: 65+ (2 of 2 - PPSV23 or PCV20) [facility] Start: 05-06-2020 End: 05-06-2020 Patient education based on identified need [facility] Start: 05-06-2020 End: 05-06-2020 Provider instructions for treatment Intervention and counseling on cessation of tobacco use, 3-10 minutes [facility] Start: 05-06-2020 [facility] Work Phone: Start: 04-18-2020 End: 04-18-2020 Office Visit 04/18/2020 Office Visit Neurology Bhupinder Iniguez MD [address] [place] [phone] [facility] NEUROLOGY [facility] Start: 04-07-2020 [facility] Work Phone: Start: 04-04-2020 End: 04-04-2020 Appointment [facility] Start: 03-31-2020 End: 03-31-2020 Patient education based on identified need [facility] Start: 03-04-2020 Lipid 1996 panel [facility] Work Phone: Start: 02-26-2020 Breast cancer screen Breast cancer screen [place], [place] Start: 02-26-2020 Screening for malignant neoplasm of breast Breast cancer screen [place], [place] Start: 02-26-2020 End: 02-26-2020 Patient education based on identified need [facility] Start: 02-07-2020 Colon Cancer Screen FIT/FOBT Colon Cancer Screen FIT/FOBT [place], [place] Start: 02-07-2020 Screening for malignant neoplasm of colon [facility] Start: 02-02-2020 Influenza vaccination Flu vaccine (#1) [place], [place] Start: 01-30-2020 A1C test (Diabetic or Prediabetic) A1C test (Diabetic or Prediabetic) [place], [place] Comment on above: Postponed from 08/10/2017 (Not Indicated ) Start: 01-30-2020 Hepatitis C screen Hepatitis C screen [place], [place] Comment on above: Postponed from 1956 (Patient Refus ed) Start: 01-30-2020 HIV screen HIV screen [place], [place] Comment on above: Postponed from 10/31/1971 (Patient Refus ed) Start: 01-30-2020 Pneumococcal 0-64 years Vaccine (1 of 1 - PPSV23) Pneumococcal 0-64 years Vaccine (1 of 1 - PPSV23) [place], [place] Comment on above: Postponed from 1962 (Insurance / F inancial) Start: 11-26-2019 Lipid 1996 panel [facility] Work Phone: Start: 11-20-2019 Medical Established Patient [facility] Work Phone: Start: 11-03-2019 End: 11-03-2019 Office Visit 11/03/2019 Office Visit General Surgery Billy Ojeda MD [address] [place] [address] [address] [place] [address] [facility] GENERAL SURGERY Start: 09-24-2019 End: 09-24-2019 Office Visit 09/24/2019 Office Visit Neurology Bhupinder Iniguez MD [address] [place] [address] [facility] Neurology specialist [place] Start: 08-31-2019 ENT [facility] Work Phone: Comment on above: Note: Please make a referral to: when sh e can have face to face visit , 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 was seen [facility] Start: 07-23-2019 Medical Established Patient [facility] Work Phone: Start: 06-05-2019 End: 06-05-2019 Patient education based on identified need [facility] Start: 06-05-2019 CPS- Asthma Clinic- F/U [facility] Work Phone: Start: 05-28-2019 End: 05-28-2019 Patient education based on identified need [facility] Start: 04-23-2019 End: 04-23-2019 Patient education based on identified need [facility] Start: 04-23-2019 End: 04-23-2019 Provider instructions for treatment Return to the clinic if condition worsens or new symptoms arise [facility] Start: 04-23-2019 End: 04-23-2019 Office Visit 04/23/2019 Office Visit Neurology Bhupinder Iniguez MD [address] [place] [address] [facility] Neurology specialist [place] Start: 04-20-2019 End: 04-20-2019 Office Visit 04/20/2019 Office Visit General Surgery Billy Ojeda MD [address] [place] [address] [place] [facility] Start: 04-16-2019 Private Stock [facility] Work Phone: Start: 04-15-2019 End: 04-15-2019 Provider instructions for treatment Intervention and counseling on cessation of tobacco use, 3-10 minutes [facility] Start: 03-05-2019 End: 03-05-2019 Patient education based on identified need [facility] Start: 03-02-2019 End: 03-02-2019 Office Visit 03/02/2019 Office Visit Neurology Bhupinder Iniguez MD [address] [place] [address] [facility] Neurology specialist [place] Start: 02-25-2019 End: 02-25-2019 Appointment 02/25/2019 Appointment Radiology [facility] Mammography Start: 02-01-2019 Influenza vaccination Flu vaccine (#1) [place], [place] Start: 12-22-2018 End: 10-04-2018 Free T4 [Mass/Vol] [facility] Work Phone: Start: 12-11-2018 Breast cancer screen Breast cancer screen [place], [place] Start: 11-19-2018 Screening for malignant neoplasm of breast Mammogram Screening [facility] Start: 11-06-2018 FQHC visit, estab pt Established Patient [facility] Work Phone: Start: 10-04-2018 Free T4 [Mass/Vol] [facility] Work Phone: Start: 09-11-2018 End: 10-04-2018 CBC W Auto Differential panel - Blood [facility] Work Phone: Comment on above: Note: Please make a referral to: Start: 09-04-2018 End: 10-04-2018 CBC W Auto Differential panel - Blood CBC with diff (CDP) [facility] Start: 09-04-2018 End: 10-04-2018 Comprehensive metabolic 2000 panel - Serum or Plasma Comprehensive Metabolic Panel (CP) [facility] Start: 09-04-2018 End: 10-04-2018 Lipid panel Lipid Panel (LIPR) [facility] Start: 09-04-2018 End: 10-04-2018 Thyrotropin [Units/volume] in Serum or Plasma TSH [facility] Start: 09-04-2018 End: 10-04-2018 Thyroxine (T4) free [Mass/volume] in Serum or Plasma T4 Free (FT4) [facility] Start: 11-19-2017 Screening mammography Screening mammography of both breasts, two views [facility] Start: 08-10-2017 HbA1c (Bld) [Mass fraction] A1C test (Diabetic or Prediabetic) [place], [place] Start: 08-10-2017 Hemoglobin A1c measurement A1C test (Diabetic or Prediabetic) [facility] Start: 2016 Respiratory Syncytial Virus (RSV) or age 60 yrs+ (1 - Risk 60-74 years 1-dose series) Respiratory Syncytial Virus (RSV) or age 60 yrs+ (1 - Risk 60-74 years 1-dose series) [facility] Start: 2016 RSV Vaccine (1 - 1-dose 60+ series) RSV Vaccine (1 - 1-dose 60+ series) [facility] Start: 03-26-2016 Shingles Vaccine (2 of 3) Shingles Vaccine (2 of 3) [facility] Start: 03-26-2016 Shingrix Vaccine (2 of 3) Shingrix Vaccine (2 of 3) [facility] Start: 2001 Screening for malignant neoplasm of colon [facility] Start: 1986 Screening for malignant neoplasm of cervix HPV (without or with Pap) [facility] Start: 1986 Zoledronic acid therapy Alpha-1 Antitrypsin Deficiency Screening [facility] Start: 1974 Annual PCP Team Chronic Disease Visit Annual PCP Team Chronic Disease Visit [facility] Start: 1974 Hepatitis C screening [facility] Start: 10-31-1971 HIV screening HIV screen [facility] Start: 1968 Depression Monitoring Depression Monitoring [facility] Start: 1962 Pneumococcal 0-64 years Vaccine (1 of 1 - PPSV23) Pneumococcal 0-64 years Vaccine (1 of 1 - PPSV23) [place], [place] Start: 1962 Pneumococcal 0-64 years Vaccine (1 of 2 - PPSV23) Pneumococcal 0-64 years Vaccine (1 of 2 - PPSV23) [facility] Start: 1956 Hepatitis C screening Hepatitis C screen [facility] Start: 1956 Screening for malignant neoplasm of colon [facility] [employer] End: 08-16-2022 Cytopathology procedure, preparation of smear, genital source PAP SMEAR Lab Routine Screening for malignant neoplasm of cervix 1 Occurrences starting 08/16/2022 until 08/16/2022 [facility] [employer] Work Phone: Comment on above: 1 Occurrences starting 08/16/2022 until 08/16/2022 Dermatopathology exam Dermatopat hology exam Pathology and Cytology Timed Neoplasm of unspecified behavior of bone, soft tissue, and skin Release Upon Ordering for 1 Occurrences starting 07/16/2023 [facility] [employer] Work Phone: Comment on above: Release Upon Ordering for 1 Occurrences starting 07/16/2023 End: 08-16-2022 Herpes Simplex 1 & 2, Molecular [facility] [employer] Work Phone: Comment on above: 1 Occurrences starting 08/16/2022 until 08/16/2022 Patient Education [facility] Work Phone: Patient referral [facility] Work Phone: End: 08-16-2022 Vaginitis DNA Probe [facility] [employer] Work Phone: Comment on above: 1 Occurrences starting 08/16/2022 until 08/16/2022 [facility] Immunizations Immunization Date Immunization Notes Care Provider Maribeth martel 10-04-2023 pneumococcal vaccine , unspecified formulation; Translations: [PCV-20] Karla Clark [facility] Work Phone: [facility] Comment on above: Note: Patient tolera cornelia well. No signs or symptoms of adverse reactions. Patient waited a minimum of 15 minutes. 10-04-2023 Imm.Admin. over 18 y rs Any Route FIRST Injection Karla Clark CNP Work Phone: [facility] 10-04-2023 Admin Pneumococcal Vaccine Medicare Karla Clark CNP Work Phone: [facility] 03-22-2022 COVID-19 mRNA Bivale nt Booster ([employer]) MEMBERSHIP COUNSELOR Karla Clark Work Phone: [facility] 06-12-2021 COVID-19 mRNA, Comirnaty (Pfizer) MEMBERSHIP COUNSELOR Karla Clark Work Phone: [facility] 07-05-2020 1st Dose MODERNA COVID-19 Vaccine Karla Clark UPPER INSPECTOR Work Phone: [facility] 06-07-2020 1st Dose MODERNA COVID-19 Vaccine Karla Clark UPPER INSPECTOR Work Phone: [facility] 03-31-2020 pneumococcal conjuga te vaccine, 13 valent; Translations: [Prevnar-13] [facility] Comment on above: Note: pt tolerated w ell pt waited 10 min in treatment room with no adverse effects noted at this time 03-31-2020 Imm.Admin. over 18 y rs Any Route FIRST Injection (Rendering physcian modifier) [facility] Work Phone: 03-31-2020 Imm.Admin. over 18 y rs Any Route FIRST Injection [facility] Work Phone: 03-14-2020 influenza, seasonal, injectable; Translations: [Flluarix] [facility] Comment on above: Note: pt tolerated w ell, pt waited 10 min in treatment with no adverse effects noted at this time. 03-14-2020 influenza, injectabl e, quadrivalent, preservative free [facility] Work Phone: 03-14-2020 Imm.Admin. over 18 y rs Any Route FIRST Injection [facility] Work Phone: 03-14-2020 Imm.Admin. over 18 y rs Any Route FIRST Injection (Rendering physcian modifier) [facility] Work Phone: 03-14-2020 influenza virus vaccine, unspecified formulation Yandel Daniel MD Work Phone: [facility] 04-15-2019 influenza, injectabl e, quadrivalent, preservative free [facility] Work Phone: 04-15-2019 influenza, seasonal, injectable [facility] Comment on above: Note: Patient tolera cornelia well. No signs or symptoms of adverse reactions. Patient waited in facility for 15 minutes. 03-20-2018 influenza, injectabl e, quadrivalent, preservative free; Translations: [FLU VAC NO PRSV 4 DANNY 3 YRS+] [facility] 03-20-2018 influenza, seasonal, injectable, preservative free [facility] 03-20-2018 IMMUNIZATION ADMIN; Translations: [IMMUNIZATION ADMIN] [facility] 03-20-2018 influenza virus vaccine, unspecified formulation Karlajulius Clark [facility] Work Phone: [facility] Work Phone: Comment on above: Note: Influenza (Juan M lt) 03-20-2018 influenza, high dose seasonal, preservative-free [facility] Comment on above: Note: Influenza (Juan M lt) 12-27-2017 tetanus toxoid, redu soren diphtheria toxoid, and acellular pertussis vaccine, adsorbed [address] 03-20-2017 influenza virus vaccine, unspecified formulation [address] 03-20-2017 influenza, seasonal, injectable Karlajulius Clark [facility] Work Phone: [facility] 03-05-2017 influenza, injectabl e, quadrivalent, preservative free; Translations: [FLU VAC NO PRSV 4 DANNY 3 YRS+] [facility] 03-05-2017 influenza, seasonal, injectable, preservative free [facility] 03-05-2017 IMMUNIZATION ADMIN; Translations: [IMMUNIZATION ADMIN] [facility] 03-05-2017 influenza virus vaccine, unspecified formulation Karla Clark UPPER INSPECTOR Work Phone: [facility] Work Phone: Comment on above: Note: Influenza (Juan M lt) 03-05-2017 influenza, high dose seasonal, preservative-free Karla [facility] Comment on above: Note: Influenza (Juan M lt) 04-03-2016 Influenza Vaccine, unspecified formulation [address] 03-20-2016 influenza, injectabl e, quadrivalent, preservative free; Translations: [FLU VAC NO PRSV 4 DANNY 3 YRS+] [facility] 03-20-2016 IMMUNIZATION ADMIN; Translations: [IMMUNIZATION ADMIN] [facility] 03-20-2016 influenza virus vaccine, unspecified formulation Karla Clark UPPER INSPECTOR Work Phone: [facility] Work Phone: Comment on above: Note: Influenza (Juan M lt) 03-20-2016 influenza, high dose seasonal, preservative-free [facility] Comment on above: Note: Influenza (Juan M lt) 01-30-2016 zoster vaccine, live [address] 04-08-2015 influenza, seasonal, injectable, preservative free Karla Clark UPPER INSPECTOR Work Phone: [facility] 11-07-2014 varicella virus vaccine Gary e Amber UPPER INSPECTOR Work Phone: [facility] 04-12-2014 influenza virus vaccine, unspecified formulation [address] 03-05-2012 influenza, seasonal, injectable Karla Clark UPPER INSPECTOR Work Phone: [facility] 01-06-2009 tetanus toxoid, redu soren diphtheria toxoid, and acellular pertussis vaccine, adsorbed Karla Amber UPPER INSPECTOR Work Phone: [facility] Payers Date Payer Category Payer Medicare [id number] 2023 Medicare (Managed Care) ANDRA Blackburn [employer] [id number] 2023 Private Health Insurance [id number] 2022 Self-pay 2021 Medicaid [id number] 2014 Unknown [facility] xxxxxxxxxxx 2014-Present [phone] CLAIMS DEPARTMENT [address] [place] [address] xxxxxxxxxxx [id number] 1959 Medicaid [id number] 2013 Unknown [id number] 1959 Medicare [id number] 1956 Unknown [id number] 2.16.840.1.833380.3.579.2. 593 1956 Unknown [id number] 2.16.840.1.137584.3.579.2. 593 1956 Unknown [id number] 2.16.840.1.268682.3.579.2. 593 1956 Unknown [id number] 2.16.840.1.802371.3.579.2. 593 1956 Unknown [id number] 2.16.840.1.840601.3.579.2. 173 1956 Unknown [id number] 2.16.840.1.511315.3.579.2. 173 1956 Unknown [id number] 2.16.840.1.825056.3.579.2. 173 1956 Unknown [id number] 2.16.840.1.212951.3.579.2. 9 1956 Unknown [id number] 2.16.840.1.358749.3.579.2. 9 1956 Unknown [id number] 2.16.840.1.926524.3.579.2. 1258 1956 Unknown [id number] 2.16.840.1.012183.3.579.2. 1259 1956 Unknown [id number] 2.16.840.1.383838.3.579.2. 9 1956 Unknown [id number] 1955 Unknown [id number] 1955 Unknown [id number] 175 1955 Unknown [id number] 175 Medicaid [id number] Unknown 1 - [employer] Medicare [id number] 200 [id number] Unknown [id number] 531 Unknown [id number] 531 Unknown [id number] 531 Unknown [id number] 531 Unknown [id number] 531 Social History Date Type Detail Facility Start: [facility] Comment on above: 12 PPD Start: 2-4 cups pd [facility] Start: 01-29-2019 End: 08-19-2023 Current every day smoker [facility] Gender identity finding (finding) [facility] Assertion Heterosexual (finding) [facility] Finding of sexua l orientation (finding) [facility] Tobacco user (finding) [facility] Work Phone: Tobacco smoking status Unknown if ever smoked [facility] History of tobacco use Cigarette Smoker [place] Start: 01-29-2019 End: 11-18-2023 Cigarettes smoked current (pack per day) - Reported Charly Almeida [facility] Start: 01-29-2019 End: 11-18-2023 Alcohol intake No [place], [place] Start: 1955 Sex Assigned At Not on file [place] Start: 03-23-2019 End: 08-02-2023 Alcohol intake Current non-drinker of alcohol (finding) [place] Start: 02-27-2022 End: 11-27-2023 Assertion [facility] Assertion Alcohol consumpt ion screening (procedure) [facility] Work Phone: Start: 03-23-2019 End: 08-19-2023 Tobacco use and exposure Never used [place] Exposure to SARS-CoV-2 (event) Not sure [facility] Start: 04-18-2020 End: 01-01-2022 Tobacco Comment I smoke about 3-6 cig/day - 04-18-20. [facility] Light cigarette smoker (1-9 cigs/day) (finding) [facility] Assertion Exposure to poll ution (event) [facility] Start: 09-11-2022 End: 08-20-2023 Assertion Smoker (finding) [facility] Assertion Finding relating to sexual activity (finding) [facility] Start: 08-02-2023 End: 12-17-2023 Assertion Ex-smoker (finding) [facility] Start: 1955 Sex Assigned At Female [facility] Assertion Currently not se xually active (finding) [facility] Start: 07-16-2023 End: 12-16-2023 Tobacco smoking status NHIS Never smoked tobacco [facility] Start: 06-28-2023 End: 11-18-2023 Alcohol intake Lifetime non-drinker (finding) [facility] Start: 05-30-2023 Tobacco Comment 3-4 cigarettes a day [facility] Start: 08-19-2023 Tobacco Comment 6-10 cigs/day [facility] Start: 07-19-2023 Alcohol Comment caffeine 1-2 cups/da y [facility] NEGATED: Highlighted row Assertion Exposure to pollution (event) [facility] NEGATED: Highlighted row Assertion Current drinker of alcohol (finding) [facility] NEGATED: Highlighted row Assertion Finding relating to drug misuse behavior (finding) [facility] NEGATED: Highlighted row Assertion Tobacco user (finding) [facility] Work Phone: NEGATED: Highlighted row Assertion Illicit drug use (finding) [facility] Work Phone: NEGATED: Highlighted row Assertion Misuse of prescription only drugs (finding) [facility] Work Phone: NEGATED: Highlighted row Assertion [facility] NEGATED: Highlighted row Assertion Contraception (finding) [facility] NEGATED: Highlighted row Assertion Sexually active (finding) [facility] Medical Equipment Procedure Code Equipment Code Equipment Origin al Text Equipment Identifier Dates Open reduction and internal fixation of fracture of humerus CANCELLOUS 7.5 CRUSHED FDA Start: 09-13-2022 Open reduction and internal fixation of fracture of humerus Orthopaedic bone screw, non-bioabsorbable, non-sterile ()[id number] FDA Start: 09-13-2022 Open reduction and internal fixation of fracture of humerus Orthopaedic fixation plate, non-bioabsorbable, sterile ()[id number] FDA Start: 09-13-2022 Open reduction and internal fixation of fracture of humerus Orthopaedic bone wire ()[id number] FDA Start: 09-13-2022 Open reduction and internal fixation of fracture of humerus Orthopaedic bone wire ()[id number] FDA Start: 09-13-2022 Open reduction and internal fixation of fracture of humerus Orthopaedic bone wire ()[id number] FDA Start: 09-13-2022 Open reduction and internal fixation of fracture of humerus Orthopaedic bone screw, non-bioabsorbable, non-sterile ()[id number] FDA Start: 09-13-2022 Open reduction and internal fixation of fracture of humerus Orthopaedic bone screw, non-bioabsorbable, non-sterile ()[id number] FDA Start: 09-13-2022 Open reduction and internal fixation of fracture of humerus Orthopaedic bone screw, non-bioabsorbable, non-sterile ()[id number] FDA Start: 09-13-2022 Open reduction and internal fixation of fracture of humerus Orthopaedic bone screw, non-bioabsorbable, non-sterile ()[id number] FDA Start: 09-13-2022 Open reduction and internal fixation of fracture of humerus Orthopaedic bone screw, non-bioabsorbable, non-sterile ()[id number] FDA Start: 09-13-2022 Open reduction and internal fixation of fracture of humerus Orthopaedic bone screw, non-bioabsorbable, non-sterile ()[id number] FDA Start: 09-13-2022 Open reduction and internal [...] Goals Date Patient Goal Desired Activity /State Personal health goal Functional Status Date Assessment Result Facility 12-24-2023 Functional status Patient at Baseline [facility] Work Phone: 08-20-2023 Functional status Patient at Baseline [facility] Work Phone: 08-15-2023 Functional status Disability Sta tus Patient at Baseline [facility] Work Phone: 03-28-2023 Functional status Patient at Baseline [facility] Work Phone: 03-15-2023 Functional status Patient at Baseline [facility] Work Phone: Mental Status Date Assessment Result Facility 12-24-2023 Cognitive function Cognitive Sta tus Patient at Baseline [facility] Work Phone: 08-20-2023 Cognitive function Cognitive Sta tus Patient at Baseline [facility] Work Phone: 03-28-2023 Cognitive function Cognitive Sta tus Patient at Baseline [facility] Work Phone: 03-15-2023 Cognitive function Cognitive Sta tus Patient at Baseline [facility] Work Phone: Cognitive function No anxiety Anxiety (fi nding) [facility] Work Phone: Clinical Notes 09-04-2018 to 04-23-2024 Discharge InstructionsDischarge InstructionsCrys Chago - 04/23/2024 2:38 PM ESTTelephone Encounter - Rekha Ng - 03/16/2024 10:49 AM EDTDeMILLA Stewart - 02/25/2024 1:30 PM EDT Note Date & Type Note Facility 04-23-2024 Hospital Discharg e instructions Jann Rust MD - 04/23/2024 9:35 PM EST You were seen in the emergency room after concerns for stroke. An MRI of your brain was negative. This is likely a complex migraine. Continue to take your Topamax as prescribed by the neurologist. Ensure you follow-up with the neurologist as discussed. Return to the emergency department if you have any worsening headache, vision changes, new weakness or numbness, or any other acute medical concern documented in this encounter [facility] Mims MD - 04/23/2024 4:50 PM EST You are seen in the ED for strokelike symptoms. Your imaging came back negative for any acute stroke. Your evaluated by neurology and diagnosed with having a complex migraine Your Topamax medication has been increased to 25 Mg twice a day. Please follow-up with neurology in the outpatient setting. Information was Outpatient appointment has been provided. documented in this encounter [facility] 04-23-2024 History of Presen t illness Narrative [facility] Emergency/Trauma Note PATIENT NAME: Gail Almieda Shift date: 04/23/2024 Shift day: Shift # 1 Room # Name: Gail Almeida Age: 68 y.o. Gender: female Uatsdin: Pentecostalism Place of temple: Trauma/Incident type: Stroke Alert Admit Date & Time: 04/23/2024 1:20 PM TRAUMA NAME: None PATIENT/EVENT DESCRIPTION: Gail Almeida is a 68 y.o. female who arrived ED via ground ambulance as stroke alert. Patient to be admitted to Patient was conscious and responsive when business systems architect visited. SPIRITUAL [id number]: Patient was raised Pentecostalism and very receptive to spiritual care. Patient declined anointing of the sick. Family was not present at the time. Protection Mgr called patient's emergency doorperson or luggage porter and legal guardian, Alma Louis, at [phone] and left a message. Patient said she would like to have someone notified. Protection Mgr provided ministry of presence, offered support, and prayed with patient. Patient expressed appreciation for the blessing she received. PATIENT BELONGINGS: This business systems architect did not handle patient's belongings. ANY BELONGINGS OF SIGNIFICANT VALUE NOTED: Unknown REGISTRATION STAFF NOTIFIED? Yes WHAT IS YOUR SPIRITUAL CARE PLAN FOR THIS PATIENT?: Follow up visits recommended for ongoing assessment of patient's condition and for more prayers and support. . [facility] [phone] documented in this encounter [facility] 03-16-2024 Telephone encount er Note Received no call back per [facility] re: rs'ing or confirmation on OP PT needed. [facility] 03-16-2024 Miscellaneous Notes Formattin g of this note might be different from the original. Received no call back per [facility] re: rs'ing or confirmation on OP PT needed. CALL TO NOTE that pending their call back on guarenteed PT Eval time /day is needed to rs, per Pratik documented in this encounter [facility] 03-05-2024 Telephone encount er Note CALL TO NOTE that pending their call back on guarenteed PT Eval time /day is needed to rs, per Pratik [facility] 02-25-2024 History of Presen t illness Narrative Images from the original note were not included. Reason for Appointment: EMG Patient: Gail Almeida : 1955 EMG Computer: [employer] Referring Physician: Dr. Lucy Gilbert EMG: BLE psychologist experimental: Cody Lauren RT(R) Office Location: [place] Reason for EMG: c/o soreness in bilateral posterior lower legs, low back pain. No hx of DM. Not on blood thinners. Comments: Procedure was explained to the patient who expressed understanding. Patient appeared to have tolerated the test well despite some discomfort due to the nature of the test. documented in this encounter [facility] 02-18-2024 History of Presen t illness Narrative Images from the original note were not included. Chief Complaint: Gait abnormality Subjective Gail Almeida, 68 y.o., female Gail is here for a neurologic consult at the request of Vida Culp CNP for gait abnormality. Patient states that she has noticed some difficulty walking. At times uses a cane to ambulate. She reports that in December she fell, had to have 8 stitches into her upper lip. States that she has not fallen since. Denies weakness, tingling/numbness in legs or feet. States that she can be walking and just go down. Denies dizziness/lightheadedness. Review of Systems Constitutional: Negative for appetite change, fatigue and fever. Respiratory: Negative for cough, shortness of breath and wheezing. Cardiovascular: Negative for chest pain, palpitations and leg swelling. Gastrointestinal: Negative for abdominal pain, constipation, diarrhea and nausea. Musculoskeletal: Positive for gait problem. Negative for arthralgias and myalgias. Neurological: Negative for dizziness, tremors, numbness and headaches. Past Medical History: Diagnosis Date Arthritis Asthma ([facility]) Bipolar disorder ([facility]) COPD (chronic obstructive pulmonary disease) ([facility]) Diabetes ([facility]) Localized swelling, mass or lump of neck ME (myocardial infarction) ([facility]) 03/2021 Ovarian cancer ([facility]) Parkinson disease ([facility] Pharyngoesophageal dysphagia Schizophrenia ([facility]) Thyromegaly ([facility]) Past Surgical History: Procedure Laterality Date DILATION AND CURETTAGE OF UTERUS HYSTERECTOMY THYROID SURGERY thyroid gland removal 07/2023 TUBAL LIGATION WOUND DEBRIDEMENT 08/19/2023 Reconstruction Nasal Wound with Rotation Flap Family History Problem Relation Name Age of Onset Stroke Mother Breast cancer Mother Lung cancer Mother Cancer Father Heart disease Father Kidney disease Father Melanoma Neg Hx Social History Tobacco Use Smoking status: Every Day Types: Cigarettes Smokeless tobacco: Never Tobacco comments: 6-10 cigs/day Substance Use Topics Alcohol use: Never Comment: caffeine 1-2 cups/day Allergies: Aluminum-containing compounds, Amphetamines, Aspirin, Barbiturates, Codeine, Fluoxetine, Ibuprofen, Meperidine, Penicillins, Prednisone, Sulfa antibiotics, Sulfamethoxazole-trimethoprim, Trazodone, and Trimethoprim Vitals: 02/18/24 1505 BP: 138/88 Body mass index is 26.15 kg/m . weight: 150 lb Neurologic exam: Mental status: Awake, alert to person, place and time. Recent and remote memory are intact. Language is fluent without aphasia. Attention and concentration are normal. Fund of knowledge is appropriate for level of education. Patient does seem to have some tardive movements of the mouth and face. Cranial nerves: CN II: Visual acuity is normal. Visual carpenter full to confrontation. CN III, IV, : pupils equal round and reactive to light. Extraocular movements intact. No ptosis present. CN V: Facial sensation is normal. CN VII: Full and symmetric facial movement. CN VIII: Hearing is normal to finger rub bilaterally: CN IX and X: Palate elevates symmetrically. CN XI: Shoulder shrug is normal bilaterally. CN XII: Tongue is midline without atrophy or fasciculation. Motor: Strength is 5/5 throughout. Bulk is normal. Patient mentioned that she often has tremor but it seems to wax and wane. I do not appreciate it today on exam. Sensory: Sensation is intact to light touch throughout Four extremities. Reflexes: Deep tendon reflexes are 2+ and symmetric throughout. Coordination: Occnbb-[id number] testing and rapid alternating movements are normal Gait: Normal Review and summary of old records: MRI of the brain with and without contrast on 06/30/2020: Unremarkable Assessment/Plan Diagnoses and all orders for this visit: Gait instability It is my impression that the patient has a gait instability. I feel that the patient's gait instability could be multifactorial due to spinal pathology or due to a neuropathic process in the lower extremities. She does mention some cramping in her legs. She does not give a clear history of pain radiating upwards or downwards. She does not have a history of diabetes from what I can tell. She is certainly on some medications that can impair muscle function as well. Plan: Physical therapy EMG of the bilateral lower extremities to assess for pathology as above and determine type and severity. Psychiatric disturbance [place] use Patient does have some subtle signs and symptoms of tardive dyskinesia. The patient is on lithium which is known to cause EPS symptoms and tremor in approximately 25 percent of patients. Olanzapine is also known to cause this type of reaction. The patient is on benztropine which is sometimes used to combat these symptoms as well. Plan: Continue work closely with Psychiatry to monitor lithium levels and to attempt to minimize the utilization of psychiatric medications when and where appropriate to try to minimize the symptoms. Pt has been fully educated on their diagnosis, lab results, treatment options, follow up plan, return instructions, and discussion of mental health issues documented in this encounter [facility] 01-28-2024 Instructions Includes: Instructions for all patient encounters Intervention and counseling on cessation of tobacco use, 3-10 minutes Discussed medication and nicotine replacement for tobacco cessation Last Documented On 3 8:54AM ; [facility] Intervention and counseling on cessation of tobacco use, 3-10 minutes Discussed medication and nicotine replacement for tobacco cessation Last Documented On 2 1:56PM ; [facility] Intervention and counseling on cessation of tobacco use, 3-10 minutes Last Documented On 0 2:07PM ; [facility] Return to the clinic if cond ition worsens or new symptoms arise Last Documented On 9 1:59PM ; [facility] Intervention and counseling on cessation of tobacco use, 3-10 minutes Last Documented On 9 10:39AM ; [facility] Education and Decision Aids were provided during visit for: Discussed nutritional needs teach healthy choices including fruits and vegetables Last Documented On 4 8:44AM ; [facility] Patient education about a pr oper diet Last Documented On 4 8:44AM ; [facility] Discussed concerns about exe rcise : promote physical activity Last Documented On 4 8:44AM ; [facility] Discussed nutritional needs teach healthy choices including fruits and vegetables Last Documented On 4 1:26PM ; [facility] Patient education about a pr oper diet Last Documented On 4 1:26PM ; [facility] Discussed concerns about exe rcise : promote physical activity Last Documented On 4 1:26PM ; [facility] Discussed nutritional needs teach healthy choices including fruits and vegetables Last Documented On 3 10:55AM ; [facility] Patient education about a pr oper diet Last Documented On 3 10:55AM ; [facility] Discussed concerns about exe rcise : promote physical activity Last Documented On 3 10:55AM ; [facility] Discussed nutritional needs teach healthy choices including fruits and vegetables Last Documented On 3 9:37AM ; [facility] Patient education about a pr oper diet Last Documented On 3 9:37AM ; [facility] Discussed concerns about exe rcise : promote physical activity Last Documented On 3 9:37AM ; [facility] Not requesting contraception Last Documented On 3 9:37AM ; [facility] Discussed nutritional needs teach healthy choices including fruits and vegetables Last Documented On 3 9:20AM ; [facility] Patient education about a pr oper diet Last Documented On 3 9:20AM ; [facility] Discussed concerns about exe rcise : promote physical activity Last Documented On 3 9:20AM ; [facility] Discussed nutritional needs teach healthy choices including fruits and vegetables Last Documented On 3 2:02PM ; [facility] Patient education about a pr oper diet Last Documented On 3 2:02PM ; [facility] Discussed concerns about exe rcise : promote physical activity Last Documented On 3 2:02PM ; [facility] Discussed nutritional needs teach healthy choices including fruits and vegetables Last Documented On 3 8:32AM ; [facility] Patient education about a pr oper diet Last Documented On 3 8:32AM ; [facility] Discussed concerns about exe rcise : promote physical activity Last Documented On 3 8:32AM ; [facility] Discussed nutritional needs teach healthy choices including fruits and vegetables Last Documented On 3 11:28AM ; [facility] Patient education about a pr oper diet Last Documented On 3 11:28AM ; [facility] Discussed concerns about exe rcise : promote physical activity Last Documented On 3 11:28AM ; [facility] Discussed nutritional needs teach healthy choices including fruits and vegetables Last Documented On 2 2:01PM ; [facility] Patient education about a pr oper diet Last Documented On 2 2:01PM ; [facility] Discussed concerns about exe rcise : promote physical activity Last Documented On 2 2:01PM ; [facility] Discussed nutritional needs teach healthy choices including fruits and vegetables Last Documented On 2 2:11PM ; [facility] Patient education about a pr oper diet Last Documented On 2 2:11PM ; [facility] Discussed concerns about exe rcise : promote physical activity Last Documented On 2 2:11PM ; [facility] Discussed current self-care methods/coping skills. ~Validated and normalized pt's feelings while assisting patient process recent events. ~Discussed ongoing counseling. ~Discussed lifestyle changes to address chronic illness. ~Supported patient's personal health goals ~wordfinds. walk, read, eat, enjoy my best friesnd Last Documented On 2 5:54PM ; [facility] Discussed nutritional needs teach healthy choices including fruits and vegetables Last Documented On 2 10:04AM ; [facility] Patient education about a pr oper diet Last Documented On 2 10:04AM ; [facility] Discussed concerns about exe rcise : promote physical activity Last Documented On 2 10:04AM ; [facility] Discussed nutritional needs teach healthy choices including fruits and vegetables Last Documented On 2 1:25PM ; [facility] Patient education about a pr oper diet Last Documented On 2 1:25PM ; [facility] Discussed concerns about exe rcise : promote physical activity Last Documented On 2 1:25PM ; [facility] Discussed nutritional needs teach healthy choices including fruits and vegetables Last Documented On 1 10:08AM ; [facility] Patient education about a pr oper diet Last Documented On 1 10:08AM ; [facility] Discussed concerns about exe rcise : promote physical activity Last Documented On 1 10:08AM ; [facility] Discussed nutritional needs teach healthy choices including fruits and vegetables Last Documented On 1 1:12PM ; [facility] Patient education about a pr oper diet Last Documented On 1 1:12PM ; [facility] Patient education about a pr oper diet Last Documented On 1 1:30PM ; [facility] Patient education about meal planning Last Documented On 1 1:30PM ; [facility] Education about changing eat ing habits Last Documented On 1 1:30PM ; [facility] Patient education about high fiber diet Last Documented On 1 1:30PM ; [facility] Patient education about low fat diet Last Documented On 1 1:30PM ; [facility] [facility] Patient education about low cholesterol diet Last Documented On 1 1:30PM ; [facility] Patient education about low carbohydrate diet Last Documented On 1 1:30PM ; [facility] Patient education about high protein diet Last Documented On 1 1:30PM ; [facility] Discussed concerns about exe rcise : promote physical activity Last Documented On 1 1:12PM ; [facility] Education/counseling conduct ed by pharmacist Last Documented On 0 1:39PM ; [facility] Vaccination counseling Last Documented On 0 1:39PM ; [facility] Discussed concerns about exe rcise : promote physical activity Last Documented On 0 2:16PM ; [facility] Patient goals decrease short ness of breath episodes Last Documented On 0 2:11PM ; [facility] Patient states that she uses her rescue [...] recently Last Documented On 0 2:24PM ; [facility] Patient education about a pr oper diet Last Documented On 0 2:54PM ; [facility] Patient education about meal planning Last Documented On 0 2:54PM ; [facility] Education about changing eat ing habits Last Documented On 0 2:54PM ; [facility] Patient education about high fiber diet Last Documented On 0 2:54PM ; [facility] Patient education about low fat diet Last Documented On 0 2:54PM ; [facility] Patient education about low cholesterol diet Last Documented On 0 2:54PM ; [facility] Patient education about low carbohydrate diet Last Documented On 0 2:54PM ; [facility] Patient education about high protein diet Last Documented On 0 2:54PM ; [facility] Discussed nutritional needs teach healthy choices including fruits and vegetables Last Documented On 0 11:11AM ; [facility] Patient education about a pr oper diet Last Documented On 0 11:11AM ; [facility] Patient education about a pr oper diet Last Documented On 0 11:28AM ; [facility] Patient education about meal planning Last Documented On 0 11:28AM ; [facility] Education about changing eat ing habits Last Documented On 0 11:28AM ; [facility] Patient education about high fiber diet Last Documented On 0 11:28AM ; [facility] Patient education about low fat diet Last Documented On 0 11:28AM ; [facility] Patient education about low cholesterol diet Last Documented On 0 11:28AM ; [facility] Patient education about low carbohydrate diet Last Documented On 0 11:28AM ; [facility] Patient education about high protein diet Last Documented On 0 11:28AM ; [facility] Discussed concerns about exe rcise : promote physical activity Last Documented On 0 11:11AM ; [facility] Education/counseling conduct ed by pharmacist Last Documented On 0 1:41PM ; [facility] Patient states that she lonnie l has issues using inhaler. Patient brought [...] own Last Documented On 0 2:08PM ; [facility] Education/counseling conduct ed by pharmacist Last Documented On 9 1:12PM ; [facility] Patient states that she lonnie gonzalez has issues with her inhaler with the spacer. Patient did not bring in inhaler or spacer. Patient was told to bring in inhalers at next scheduled visit for pharmacist to assess inhalation technique. Patient is agreeable Last Documented On 9 1:13PM ; [facility] Patient goals Start using ch deon to help with inhaling dulera Last Documented On 9 2:40PM ; [facility] Patient states that she is g etting [...] vaccines Last Documented On 9 2:51PM ; [facility] Discussed nutritional needs teach healthy choices including fruits and vegetables Last Documented On 9 9:29AM ; [facility] Patient education about a pr oper diet Last Documented On 9 9:29AM ; [facility] Discussed concerns about exe rcise : promote physical activity Last Documented On 9 9:29AM ; [facility] Work Phone: 1(365) 946-592408-26-2024 Evaluation note Includes: Assessments for all patient encounters Findings Encounter Date [Z68.25 - Body mass index [B ME] 25.0-25.9, adult] assessment of body mass index Medical Established Patient with Vida Culp CNP 01/27/2024 Last Documented On 4 9:12AM ; [facility] Bipolar disorder NOS Medical Established Patient with Vida Culp CNP 01/27/2024 Last Documented On 4 9:12AM ; [facility] Chronic obstructive pulmonary disease Me dical Established Patient with Vida Culp [facility] 01/27/2024 Last Documented On 4 9:12AM ; [facility] Disturbance of gait Medical Established Patient with Vida Culp [employer]PPER INSPECTOR 01/27/2024 Last Documented On 4 9:12AM ; [facility] Tremor Medical Established Patient with Vida Culp UPPER INSPECTOR 01/27/2024 Last Documented On 4 9:12AM ; [facility] Visit for: screening for depression [facility] Established Patient with Vida Culp [facility] 01/27/2024 Last Documented On 4 9:12AM ; [facility] [R26.89 - Other abnormalitie s of gait and mobility] staggering gait Chart Update with Karla Clark [facility] 11/15/2023 Last Documented On 4 12:07PM ; [facility] [F17.210 - Nicotine dependen ce, cigarettes, uncomplicated] continuous dependence on cigarette smoking Medical Established Patient with Karla Clark UPPER INSPECTOR 10/04/2023 Last Documented On 4 6:30PM ; [facility] [Z12.11 - Encounter for scre ening for malignant neoplasm of colon] Colon screening Medical Established Patient with Karla Clark [facility] 10/04/2023 Last Documented On 4 6:30PM ; [facility] [Z68.25 - Body mass index [B ME] 25.0-25.9, adult] assessment of body mass index Medical Established Patient with Karla Clark UPPER INSPECTOR 10/04/2023 Last Documented On 4 6:30PM ; [facility] Diabetes Risk Test Score was five score 10/04/2023 Medical Established Patient with Karla Clark [facility] 10/04/2023 Last Documented On 4 6:30PM ; [facility] Encounter for Immunization Medical Estab lished Patient with Karla Clark UPPER INSPECTOR 10/04/2023 Last Documented On 4 6:30PM ; [facility] [D48.5 - Neoplasm of uncerta in behavior of skin] skin neoplasm of uncertain behavior Medical Established Patient with Karla Clark UPPER INSPECTOR 05/22/2023 Last Documented On 3 1:30PM ; [facility] [Z68.24 - Body mass index [B ME] 24.0-24.9, adult] assessment of body mass index Medical Established Patient with Karla Clark UPPER INSPECTOR 05/22/2023 Last Documented On 3 1:30PM ; [facility] Assessment of tobacco use Medical Establ ished Patient with Karla Clark UPPER INSPECTOR 05/22/2023 Last Documented On 3 1:30PM ; [facility] [R30.0 - Dysuria] Dysuria Chart Update with Gary Clark [facility] 03/21/2023 Last Documented On 3 11:27AM ; [facility] [Z12.39 - Encounter for othe r screening for malignant neoplasm of breast] visit for: screening for malignant breast neoplasm Medical Established Patient with Aaron Whitaker UPPER INSPECTOR 02/28/2023 Last Documented On 3 9:51AM ; [facility] [Z68.24 - Body mass index [B ME] 24.0-24.9, adult] assessment of body mass index Medical Established Patient with Aaron Whitaker UPPER INSPECTOR 02/28/2023 Last Documented On 3 9:51AM ; [facility] Assessment of tobacco use Medical Establ ished Patient with Aaron Whitaker UPPER INSPECTOR 02/28/2023 Last Documented On 3 9:51AM ; [facility] Chronic obstructive pulmonary disease Me dical Established Patient with Aaron Whitaker UPPER INSPECTOR 02/28/2023 Last Documented On 3 9:51AM ; [facility] [J20.9 - Acute bronchitis, unspecified] acute bronchitis Medical Established Patient with Karla Clark UPPER INSPECTOR 11/19/2022 Last Documented On 3 10:15AM ; [facility] [M79.621 - Pain in right upp er arm] pain in upper arm Medical Established Patient with Karla Clark CNP 11/19/2022 Last Documented On 3 10:15AM ; [facility] [Z68.23 - Body mass index [B ME] 23.0-23.9, adult] assessment of body mass index Medical Established Patient with Karla Clark UPPER INSPECTOR 11/19/2022 Last Documented On 3 10:15AM ; [facility] [M79.601 - Pain in right arm ] pain in right arm Medical Established Patient with Karla Clark UPPER INSPECTOR 09/18/2022 Last Documented On 3 2:33PM ; [facility] [Z68.24 - Body mass index [B ME] 24.0-24.9, adult] assessment of body mass index Medical Established Patient with Karla Clark CNP 09/18/2022 Last Documented On 3 2:33PM ; [facility] Assessment of tobacco use Medical Establ ished Patient with Karla Clark CNP 09/18/2022 Last Documented On 3 2:33PM ; [facility] [M25.569 - Pain in unspecifi ed knee] arthralgia of knee / patella / tibia / fibula Medical Established Patient with Karla Clark CNP 08/27/2022 Last Documented On 3 9:20AM ; [facility] [Z68.24 - Body mass index [B ME] 24.0-24.9, adult] assessment of body mass index Medical Established Patient with Karla Clark CNP 08/27/2022 Last Documented On 3 9:20AM ; [facility] Intervention and counseling on cessation of tobacco use, 3-10 minutes Discussed medication and nicotine replacement for tobacco cessation Medical Established Patient with Karla Clark UPPER INSPECTOR 08/27/2022 Last Documented On 3 9:20AM ; [facility] Nicotine dependence Medical Established Patient with Karla Clark CNP 08/27/2022 Last Documented On 3 9:20AM ; [facility] Visit for routine adult H&P without abnormal findings Medical Established Patient with Karla Clark UPPER INSPECTOR 08/27/2022 Last Documented On 3 9:20AM ; [facility] [H92.02 - Otalgia, left ear] earache Med ical Established Patient with Karlajulius Clark UPPER INSPECTOR 06/18/2022 Last Documented On 3 12:11PM ; [facility] [M79.604 - Pain in right leg ] pain in right leg Medical Established Patient with Karla Clark UPPER INSPECTOR 06/18/2022 Last Documented On 3 12:11PM ; [facility] [Z68.24 - Body mass index [B ME] 24.0-24.9, adult] assessment of body mass index Medical Established Patient with Karla Clark UPPER INSPECTOR 06/18/2022 Last Documented On 3 12:11PM ; [facility] Assessment of tobacco use Medical Establ ished Patient with Karla Clark UPPER INSPECTOR 06/18/2022 Last Documented On 3 12:11PM ; [facility] Diabetes Risk Test Score was four score 06/18/2022 Medical Established Patient with Karla Clark UPPER INSPECTOR 06/18/2022 Last Documented On 3 12:11PM ; [facility] Schizoaffective disorder Established Patient with Yin Feliz LPCC-S 03/20/2022 Last Documented On 2 12:13AM ; [facility] No cough Medical Established Patient with Karla Clark UPPER INSPECTOR 12/20/2021 Last Documented On 2 3:12PM ; [facility] Visit for: screening for hum an immunodeficiency virus Medical Established Patient with Karla Clark UPPER INSPECTOR 12/20/2021 Last Documented On 2 3:12PM ; [facility] Z68.24 - Body mass index [BM I] 24.0-24.9, adult Medical Established Patient with Karlajulius Floresen UPPER INSPECTOR 12/20/2021 Last Documented On 2 3:12PM ; [facility] Bipolar disorder NOS Established Patient with Yin Feliz LPCC-S 11/03/2021 Last Documented On 2 7:00PM ; [facility] Bipolar schizoaffective disorder BH Esta blished Patient with Yin Feliz LPCC-S 11/03/2021 Last Documented On 2 7:00PM ; [facility] PLAN Medical Established Patient with Don Pino MD 11/03/2021 Last Documented On 2 10:40AM ; [facility] Abnormal electrocardiogram Medical Estab lished Patient with Don Pino MD 11/03/2021 Last Documented On 2 10:40AM ; [facility] Z68.24 - Body mass index [BM I] 24.0-24.9, adult Medical Established Patient with Don Pino MD 11/03/2021 Last Documented On 2 10:40AM ; [facility] Cough Medical Established Patient with Karla Amber UPPER INSPECTOR 07/28/2021 Last Documented On 2 2:01PM ; [facility] Intervention and counseling on cessation of tobacco use, 3-10 minutes Discussed medication and nicotine replacement for tobacco cessation Medical Established Patient with Karlajulius Clark UPPER INSPECTOR 07/28/2021 Last Documented On 2 2:01PM ; [facility] Nicotine dependence Medical Established Patient with Karla Amber UPPER INSPECTOR 07/28/2021 Last Documented On 2 2:01PM ; [facility] Z68.24 - Body mass index [BM I] 24.0-24.9, adult Medical Established Patient with Karlajulius Clark UPPER INSPECTOR 07/28/2021 Last Documented On 2 2:01PM ; [facility] Assess Colon screening Medical Established Patie nt with Karlajulius Clark UPPER INSPECTOR 05/08/2021 Last Documented On 1 10:59AM ; [facility] Diabetes Risk Test Score was four score 05/08/2021 Medical Established Patient with Karla Amber UPPER INSPECTOR 05/08/2021 Last Documented On 1 10:59AM ; [facility] Routine adult history and ph ysical (18-64 yrs) without abnormal findings Medical Established Patient with Karla Amber UPPER INSPECTOR 05/08/2021 Last Documented On 1 10:59AM ; [facility] Z68.24 - Body mass index [BM I] 24.0-24.9, adult Medical Established Patient with Karla Amber UPPER INSPECTOR 05/08/2021 Last Documented On 1 10:59AM ; [facility] Z68.24 - Body mass index [BM I] 24.0-24.9, adult Medical Established Patient with Karla Amber UPPER INSPECTOR 06/17/2020 Last Documented On 1 10:30AM ; [facility] Overweight Medical Established Patient with Karla Amber UPPER INSPECTOR 06/06/2020 Last Documented On 1 2:06PM ; [facility] Z68.25 - Body mass index [BM I] 25.0-25.9, adult Medical Established Patient with Karla Amber UPPER INSPECTOR 06/06/2020 Last Documented On 1 2:06PM ; [facility] Antiasthmatics [facility] Ast[facility] Clinic-New with Karla Amber UPPER INSPECTOR 05/06/2020 Last Documented On 0 7:27PM ; [facility] Assessment of tobacco use [facility]-New with Karla Amber UPPER INSPECTOR 05/06/2020 Last Documented On 0 7:27PM ; [facility] Body mass index [facility]-New with Karla Amber UPPER INSPECTOR 05/06/2020 Last Documented On 0 7:27PM ; [facility] Chronic obstructive pulmonary disease S [facility] with Karla Amber UPPER INSPECTOR 05/06/2020 Last Documented On 0 7:27PM ; [facility] Overweight [facility]PS [facility] with Karla Amber UPPER INSPECTOR 05/06/2020 Last Documented On 0 7:27PM ; [facility] Z11.4 - Encounter for screen ing for human immunodeficiency virus [HIV] CPS [facility] with Karla Amber UPPER INSPECTOR 05/06/2020 Last Documented On 0 7:27PM ; [facility] Diabetes Risk Test Score was three score 03/31/2020 Medical Established Patient with Karla Amber UPPER INSPECTOR 03/31/2020 Last Documented On 0 3:22PM ; [facility] Overweight Medical Established Patient with Karla Amber UPPER INSPECTOR 03/31/2020 Last Documented On 0 3:22PM ; [facility] Z68.25 - Body mass index [BM I] 25.0-25.9, adult Medical Established Patient with Karla Clark UPPER INSPECTOR 03/31/2020 Last Documented On 0 3:22PM ; [facility] Encounter for Immunization Nurse Visit with Gary Clark UPPER INSPECTOR 03/14/2020 Last Documented On 0 5:11PM ; [facility] Body mass index Medical Established Patient with Karla Floresen UPPER INSPECTOR 02/26/2020 Last Documented On 0 1:18PM ; [facility] Overweight Medical Established Patient with Karlajulius Floresen UPPER INSPECTOR 02/26/2020 Last Documented On 0 1:18PM ; [facility] Overweight Medical Established Patient with Karlajulius Floresen UPPER INSPECTOR 07/23/2019 Last Documented On 0 2:33PM ; [facility] Z68.27 - Body mass index (BM I) 27.0-27.9, adult Medical Established Patient with Karla Clark UPPER INSPECTOR 07/23/2019 Last Documented On 0 2:33PM ; [facility] Occasional asthma CPS- [facility]hma Clinic- F/U with A french Clark UPPER INSPECTOR 06/05/2019 Last Documented On 0 7:04PM ; [facility] Overweight CPS- [facility] Clinic- F/U with Alta Floresen UPPER INSPECTOR 06/05/2019 Last Documented On 0 7:04PM ; [facility] Z68.27 - Body mass index (BM I) 27.0-27.9 adult CPS- [facility]hma Clinic- F/U with Karla Floresen UPPER INSPECTOR 06/05/2019 Last Documented On 0 7:04PM ; [facility] Occasional asthma CPS Med Review with Karla Flores en UPPER INSPECTOR 04/23/2019 Last Documented On 9 4:01PM ; [facility] Overweight CPS Med Review with Karla Floresen UPPER INSPECTOR 04/23/2019 Last Documented On 9 4:01PM ; [facility] Z68.27 - Body mass index (BM I) 27.0-27.9 adult CPS Med Review with Karla Floresen UPPER INSPECTOR 04/23/2019 Last Documented On 9 4:01PM ; [facility] Acute pharyngitis Medical Established Patient wi th Brandy Kelley UPPER INSPECTOR 04/15/2019 Last Documented On 9 12:31PM ; [facility] Asthmatic bronchitis with ac cahto exacerbation Medical Established Patient with Brandy Warren UPPER INSPECTOR 04/15/2019 Last Documented On 9 12:31PM ; [facility] Fagerstrom Score was two Medical Established Pat ient with Brandy Warren UPPER INSPECTOR 04/15/2019 Last Documented On 9 12:31PM ; [facility] PHQ-9: total score was three 04/15/2019 Medical Established Patient with Brandy Warren UPPER INSPECTOR 04/15/2019 Last Documented On 9 12:31PM ; [facility] Body mass index Medical Established Patient with Karla Amber UPPER INSPECTOR 03/05/2019 Last Documented On 9 10:27AM ; [facility] Diabetes Risk Test Score was three score Medical Established Patient with Karla Amber UPPER INSPECTOR 03/05/2019 Last Documented On 9 10:27AM ; [facility] Overweight Medical Established Patient with Karla Amber UPPER INSPECTOR 03/05/2019 Last Documented On 9 10:27AM ; [facility] Z68.28 - Body mass index (BM I) 28.0-28.9, adult Medical Established Patient with Karla Amber UPPER INSPECTOR 12/22/2018 Last Documented On 9 10:32AM ; [facility] Assess routine adult history and physical (18 - 64 yrs) Medical Established Patient with Karla Amber UPPER INSPECTOR 11/06/2018 Last Documented On 9 2:26PM ; [facility] Overweight Medical Established Patient with Karla Amber UPPER INSPECTOR 11/06/2018 Last Documented On 9 2:26PM ; [facility] Z68.28 - Body mass index (BM I) 28.0-28.9, adult Medical Established Patient with Karla Amber UPPER INSPECTOR 11/06/2018 Last Documented On 9 2:26PM ; [facility] Assess dysphagia Medical Established Patient wit h Karla Amber UPPER INSPECTOR 09/11/2018 Last Documented On 9 10:53AM ; [facility] Assess routine adult history and physical (18 - 64 yrs) Medical Established Patient with Karla Clark UPPER INSPECTOR 09/11/2018 Last Documented On 9 10:53AM ; [facility] Assess primary insomnia with sleep apnea Medical Established Patient with Karla Clark UPPER INSPECTOR 09/04/2018 Last Documented On 9 2:23PM ; [facility] Assess routine adult history and physical (18 - 64 yrs) Medical Established Patient with Karla Clark UPPER INSPECTOR 09/04/2018 Last Documented On 9 2:23PM ; [facility] Overweight Medical Established Patient with Karlajulius Clark UPPER INSPECTOR 09/04/2018 Last Documented On 9 2:23PM ; [facility] Z68.29 - Body mass index (BM I) 29.0-29.9, adult Medical Established Patient with Karla Clark UPPER INSPECTOR 09/04/2018 Last Documented On 9 2:23PM ; [facility] Assess vaginal candidiasis Medical Estab lished Patient with Karla Clark UPPER INSPECTOR 07/31/2018 Last Documented On 9 2:12PM ; [facility] Work Phone: 1(869) 878-758208-26-2024 Progress note* Progress note Date Encounter Last Documented by 01/27/2024 Medical Established Patient Last documented on 01/28/2024; 9:12 AM, Vida Culp CNP; [facility] Active Problems & Conditions - J45.909 - Asthma Occasional - Asthma - F31.9 - Bipolar Disorder Nos - Bipolar disorder, unspecified - J44.9 - Chronic Obstructive Pulmonary Disease - F32.9 - Major depressive disorder, single episode, unspecified - Depression - Schizoaffective Disorder Chief Complaint The Chief Complaint is: Pt here for ER f/u. Nurse from [facility] took stiches out on Saturday. Reason For Visit Visit for: ER follow up. Referred Here Referred by emergency room. Prior encounters. History of Present Illness - Allergy list reviewed - Reviewed Medications - Medication list reviewed Patient reports she had a fall and need to have some stitches to her face. These were removed at assisted living. Patient reports she lost her balance. Patient denies any loss of conciousness. Patient report she has been feeling better. Patient denies feeling unsteady on her feet. Patient reports she see's Dr. Galicia for Psychiatry. Patient reports she has noticed some tremoring and feels like her gait is shuffeling. Of note she is leanng to nino the left while siting up in the chair. She did speak with Dr. Galicia about this, it has not been determined if this is medication related or not. Patient reports she did stop smoking about a month ago Current Medication - Acetaminophen ER 650 MG Oral Tablet Extended Release take 1 tablet by mouth twice daily, 30 days, 11 refills - Acidophilus Probiotic 0.5 MG Oral Tablet TAKE 1 TABLET BY MOUTH ONCE DAILY, 30 days, 11 refills - Advair Diskus 250-50 MCG/ACT Inhalation Aerosol Powder Breath Activated inhale 1 actuation by mouth twice daily (replaces HangIt r/t insurance), 30 days, 11 refills - Albuterol Sulfate HFA 108 (90 Base) MCG/ACT Inhalation Aerosol Solution INHALE 1 OR 2 PUFFS EVERY 6 HOURS NEEDED FOR WHEEZING/SHORTNESS OF BREATH (may sub equivalent), 30 days, 11 refills - Amantadine HCl 100 MG Oral Capsule Take 1 tablet by mouth twice a day DR GALICIA, 0 days, 0 refills - Benztropine Mesylate 0.5 MG Oral Tablet Take 1 tablet by mouth twice a day DR GALICIA, 0 days, 0 refills - Calcium 600+D Plus Minerals 600-400 MG-UNIT Oral Tablet take 1 tablet by mouth twice daily, 30 days, 11 refills - Calcium Oyster Shell 1250 (500 Ca) MG Oral Tablet 0 days, 0 refills - cloNIDine HCl 0.1 MG Oral Tablet give one by mouth once daily, 0 days, 0 refills - Colace 100 MG Oral Capsule take 1 capsule by mouth once daily at bedtime, 30 days, 11 refills - [employer] Mucus DM Extended Release 30-600 MG Oral Tablet Extended Release 12 Hour 0 days, 0 refills - Famotidine 20 MG Oral Tablet [...] once daily, 0 days, 0 refills - [place] Carbonate 300 MG Oral Tablet one tablet by mouth two times daily, 30 days, 0 refills - Loratadine 10 MG Oral Tablet take 1 tablet by mouth once daily, 30 days, 11 refills - MiraLax 17 GM Oral Packet 0 days, 0 refills - Mobic 15 MG Oral Tablet take 1 tablet by mouth once daily (no other nsaids), 30 days, 11 refills - Nicotine 21 MG/24HR Transdermal Patch 24 Hour apply 1 patch to skin once daily , remove and replace every morning, 28 days, 0 refills - OLANZapine 15 MG Oral Tablet once daily Kentrell Hurley, 30 days, 0 refills - OLANZapine 5 MG Oral Tablet take one tablet by mouth twice daily as needed for agitation/anxietyper Dr. Galicia, 15 days, 0 refills - Polyethylene Glycol [...] by IM route every [address] Glaicia, 14 days, 0 refills - Topiramate 25 MG Oral Tablet take 1 tablet by mouth once daily at bedtime, 30 days, 11 refills - Vitamin B-12 500 MCG Oral Tablet one tablet by mouth once daily, 30 days, 0 refills Past Medical/Surgical History Reported: Patient gave verbal consent for telehealth. Medical: [facility] sexually transmitted infection status not known. Immunization History: Recent immunization for flu. 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 Not planning a in the next year. Diagnoses: Abnormal electrocardiogram. Asthma. Bipolar disorder NOS Depression Heart Attack 03/2021 [facility]. Surgical: - General surgery right shoulder ORIF 09/13/22 - Hysterectomy Social History Environmental Exposure: No secondhand cigarette smoke exposure. Tobacco use: Former smoker Quit date 11/27/2023. Alcohol: Not using alcohol. Drug Use: Not [...] Breast neoplasm Review Of Systems Systemic: No systemic symptoms. Head: No head symptoms. Otolaryngeal: No ear symptoms, no nasal symptoms, and no throat symptoms. Cardiovascular: No cardiovascular symptoms. Pulmonary: No pulmonary symptoms. Gastrointestinal: No gastrointestinal symptoms. Genitourinary: No genitourinary symptoms. Musculoskeletal: No musculoskeletal symptoms. Neurological: No neurological symptoms. Psychological: No psychological symptoms. Skin: No skin symptoms. Physical Findings - Vitals taken 01/27/2024 08:41 am BP-Sitting R134/78 mmHg Pulse Rate-Uzoaewb99 bpm Nkffet54 in Fnpyjz798 lbs Body Mass Index25.6 kg/m2 Body Surface Area1.7 m2 Oxygen Wsvksvlnsv18 % Vital Signs: - Systolic blood pressure 130 - 139 mmHg. - Diastolic Blood Pressure < 80 mmHg. General Appearance: - Awake. - Alert. Eyes: General/bilateral: Pupils: - PERRLA. Lungs: - Respiration rhythm and depth was normal. - Clear to auscultation. Cardiovascular: Heart Rate And Rhythm: - Normal. Heart Sounds: - Normal. Abdomen: Auscultation: - Bowel sounds were normal. Musculoskeletal System: General/bilateral: - Normal movement of all extremities. Neurological: - Oriented to time, place, and person. Motor: - A rest tremor of the right upper extremity was seen. - A rest tremor of the left upper extremity was seen. Balance: - Impaired. Psychiatric: - Expression of emotions normal. Skin: - General appearance was abnormal small area of redness above the upper lip where the laceraton was. This area is now approximated and healing well. Assessment - Z13.31 - Encounter for screening for depression - Z68.25 - Body mass index [BMI] 25.0-25.9, adult - J44.9 - Chronic obstructive pulmonary disease, unspecified - G25.2 - Other specified forms of tremor - R26.9 - Unspecified abnormalities of gait and mobility - F31.9 - Bipolar disorder, unspecified Therapy - Developmental/Behavioral Screening & Testing - PHQ9. Counseling/Education - Discussed nutritional needs teach healthy choices including fruits and vegetables - Patient education about a proper diet - Discussed concerns about exercise: promote physical activity Plan StartCited- Unspecified abnormalities of gait and mobility Referrals: Neurology Instructions: Please make a referral to: EndCited Patient advised to remember to use her cane as often as possible to help with balance. No changes to medications. Patient reports she was recently advised she may have Parkinson's according to Dr. Galicia. Will send referral to Neurology for further workup. Advance Directives - Advance Care Planning Care Team - Karla Clark CNP Health Reminders - Assess BMI satisfied 01/27/2024. - Assess Tobacco Use satisfied 01/27/2024. - Follow Up Plan BMI Management satisfied 01/27/2024. - BENOIT-2 satisfied 01/27/2024. - PHQ9 / PHQA satisfied 01/27/2024. User Defined 1 Not planning a in the next year. BENOIT-2 score was 0 01/27/2024, BENOIT-7 score [BENOIT-7] Feeling nervous, anxious or on edge? + 0 pt : Not at all, [BENOIT-7] Not being able to stop or control worrying? + 0 pt : Not at all, Patient Health Questionnaire 9-Item total score was 0 01/27/2024 If you checked off problems, how difficult is it for you to do your work? + : Not difficult at all, [PHQ-9-1] Little interest or pleasure in doing [...] pt : Not at all. [facility]07-23-2024 Progress note Author Reynaldo Kraft [facility] December 24, 2023 1:28pm Note Date/Time December 24, 2023 1:17 pm [facility] [address] [place] [address] Psychiatry Progress Note Signed Patient: Gail Almeida MR#: [id number] : 1955 Acct:[id number] Age/Sex: 68 / F Adm Date: 4 Loc: Room: [address] [place] [address] Type : ADM IN Attending Dr: Joe [...] mg QHS and 12.5 mg TID Continue [place] 300 mg twice a day, clonidine 0.1 mg daily Continue to monitor mental status Encourage group participation and medication compliance Risk benefits alternatives explained Documented By: Reynaldo Kraft MD 12/24/23 1317 Signed By: <Electronically signed by Reynaldo Kraft MD> 12/24/23 1328 [facility] Work Phone: 1(530) 842-916907-22-2024 Progress note Author Reynaldo Kraft [facility] December 23, 2023 11:11am Note Date/Time December 23, 2023 11:1 1am [facility] [address] [place] [address] Psychiatry Progress Note Signed Patient: Gail Almeida MR#: [id number] : 1955 Acct:[id number] Age/Sex: 68 / F Adm Date: 4 Loc: Room: [address] [place] [address] Type : ADM IN Attending Dr: Joe [...] is okay with going to a different [facility]p. Mental status exam: Mental Status: mental status [...] mg QHS and 12.5 mg TID Continue [place] 300 mg twice a day, clonidine 0.1 mg daily Continue to monitor mental status Encourage group participation and medication compliance Risk benefits alternatives explained Documented By: Reynaldo Kraft MD 12/23/23 110 Signed By: <Electronically signed by Reynaldo Kraft MD> 12/23/[address] [place] [address] Work Phone: 1(479) 405-832007-21-2024 Progress note Author Joe rodriguez [facility] December 22, 2023 6:30am Note Date/Time December 22, 2023 6:29 am [facility] [address] [place] [address] Psychiatry Progress Note Signed Patient: Gail Almeida MR#: [id number] : 1955 Acct:[id number] Age/Sex: 68 / F Adm Date: 4 Loc: Room: [address] [place] [address] Type : ADM IN Attending Dr: Joe [...] Case management is working on placement options. [place] level is 1.0. Case management to safety plan with patient's daughter. Continue Topamax 25 QHS, Zyprexa 5 mg daily and 15 mg QHS Continue Seroquel 400 mg QHS and 12.5 mg TID Continue [place], clonidine 0.1 mg daily Continue folic acid 1 mg daily and amantadine 100 mg daily Monitor for suicidal behaviors for safety of self (15-minute face check) Recommend attending groups and psychoeducation for building coping skills Typical short- and long-term side effects of the proposed medication regimen, including contraindications and clinically significant interactions, were discussed with the patient. Medication regimen includes Topamax, Zyprexa, Seroquel, [place], clonidine and folic acid. Side effects include [...] provided. Documented By: Joe Davis MD [id number] Signed By: <Electronically signed by Joe Davis MD> 12/22/23 0642 [facility] Work Phone: 1(744) 738-638507-20-2024 Progress note Author Joe rodriguez [facility] December 21, 2023 6:35am Note Date/Time December 21, 2023 6:35 am [facility] [address] [place] [address] Psychiatry Progress Note Signed Patient: Gail Almeida MR#: [id number] : 1955 Acct:[id number] Age/Sex: 68 / F Adm Date: 4 Loc: Room: [address] [place] [address] Type : ADM IN Attending Dr: Joe [...] Case management is working on placement options. [place] level is 1.0. Case management to safety plan with patient's daughter. Continue Topamax 25 QHS, Zyprexa 5 mg daily and 15 mg QHS Continue Seroquel 400 mg QHS and 12.5 mg TID Continue [place], clonidine 0.1 mg daily Continue folic acid 1 mg daily and amantadine 100 mg daily Monitor for suicidal behaviors for safety of self (15-minute face check) Recommend attending groups and psychoeducation for building coping skills Typical short- and long-term side effects of the proposed medication regimen, including contraindications and clinically significant interactions, were discussed with the patient. Medication regimen includes Topamax, Zyprexa, Seroquel, [place], clonidine and folic acid. Side effects include [...] signed by Joe Davis MD> 12/21/23 0635 [facility] Work Phone: 1(926) 700-465507-19-2024 Progress note Author Joe rodriguez [facility] December 20, 2023 6:36am Note Date/Time December 20, 2023 6:36 am [facility] [address] [place] [address] Psychiatry Progress Note Signed Patient: Gail Almeida MR#: [id number] : 1955 Acct:[id number] Age/Sex: 68 / F Adm Date: 4 Loc: Room: 1J4299-9 Type : ADM IN Attending Dr: Joe Davis MD Copies to: ~ Date of Service: 12/20/2023 Subjective Subjective Narrative: Ms. Almeida said she had a good day and staff reported that she is at her baseline. She denied any AVH or SI/HI. She is compliant with treatment. Per correctional counselor/case manager, spoke with Alma Louis from [employer] [facility] in regards to placement for pt at discharge, states [facility] is not able to care for pt and has spoke with [facility] about placement. This junior underwriter to reach out toMelody at facility [...] Case management is working on placement options. [place] level is 1.0. Case management to safety plan with patient's daughter. Continue Topamax 25 QHS, Zyprexa 5 mg daily and 15 mg QHS Continue Seroquel 400 mg QHS and 12.5 mg TID Continue [place], clonidine 0.1 mg daily Continue folic acid 1 mg daily and amantadine 100 mg daily Monitor for suicidal behaviors for safety of self (15-minute face check) Recommend attending groups and psychoeducation for building coping skills Typical short- and long-term side effects of the proposed medication regimen, including contraindications and clinically significant interactions, were discussed with the patient. Medication regimen includes Topamax, Zyprexa, Seroquel, [place], clonidine and folic acid. Side effects include [...] signed by Joe Davis MD> 12/20/23 0636 [facility] Work Phone: 1([phone]) 497-939707-18-2024 Progress note Author Joe rodriguez [facility] December 19, 2023 6:46am Note Date/Time December 19, 2023 6:45 am [facility] [address] [place] [address] Psychiatry Progress Note Signed Patient: Gail Almeida MR#: [id number] : 1955 Acct:[id number] Age/Sex: 68 / F Adm Date: 4 Loc: Room: [address] [place] [address] Type : ADM IN Attending Dr: Joe [...] paranoid thoughts. She follows up with Dr. Galicia who is her outpatient psychiatrist. She said [...] showing signs of improvement and denied SI/HI. [place] level is 1.0. Case management to safety plan with patient's daughter. Continue Topamax 25 QHS, Zyprexa 5 mg daily and 15 mg QHS Continue Seroquel 400 mg QHS and 12.5 mg TID Continue [place], clonidine 0.1 mg daily Continue folic acid 1 mg daily and amantadine 100 mg daily Monitor for suicidal behaviors for safety of self (15-minute face check) Recommend attending groups and psychoeducation for building coping skills Typical short- and long-term side effects of the proposed medication regimen, including contraindications and clinically significant interactions, were discussed with the patient. Medication regimen includes Topamax, Zyprexa, Seroquel, [place], clonidine and folic acid. Side effects include [...] was provided. Documented By: Joe Davis MD [id number] Signed By: <Electronically signed by Joe Davis MD> 12/19/23645 [facility] Work Phone: 1(487) 887-636307-17-2024 Progress note Author Joe rodriguez [facility] December 18, 2023 6:40am Note Date/Time December 18, 2023 6:38 am [facility] [address] [place] [address] Psychiatry Progress Note Signed Patient: Gail Almeida MR#: [id number] : 1955 Acct:[id number] Age/Sex: 68 / F Adm Date: 4 Loc: Room: [address] [place] [address] Type : ADM IN Attending Dr: Joe Davis MD Copies to: ~ Date of Service: 12/18/2023 Subjective Subjective Narrative: Ms. Almeida said she had a good day yesterday. She tolerated increasing the dose of Seroquel and denied any side effects. She is not internally stimulated on exam. She states she feels okay today. She denied any paranoid thoughts. She follows up with Dr. Galicia who is her outpatient psychiatrist. She feels [...] showing signs of improvement and denied SI/HI. [place] level is pending. Continue Topamax 25 QHS, Zyprexa 5 mg daily and 15 mg QHS Continue Seroquel 400 mg QHS and 12.5 mg TID Continue [place], clonidine 0.1 mg daily Continue folic acid 1 mg daily and amantadine 100 mg daily Monitor for suicidal behaviors for safety of self (15-minute face check) Recommend attending groups and psychoeducation for building coping skills Typical short- and long-term side effects of the proposed medication regimen, including contraindications and clinically significant interactions, were discussed with the patient. Medication regimen includes Topamax, Zyprexa, Seroquel, [place], clonidine and folic acid. Side effects include [...] signed by Joe Davis MD> 12/18/23 0640 [facility] Work Phone: 1([phone]) 940-381207-16-2024 History and physical note Author Joe rodriguez [facility] December 17, 2023 11:50am Note Date/Time December 17, 2023 10:1 7am [facility] [address] [place] [address] Psychiatry H&P Signed Patient: Gail Almeida MR#: [id number] : 1955 Acct:[id number] Age/Sex: 68 / F Adm Date: 4 Loc: 1S Room: [address] [place] [address] Type: ADM IN Attending Dr: Joe Davis MD Copies to: NON STAFF Joe Davis MD Mazin Blackburn Adonis, DO, RES~ Date of Service: 12/17/2023 HPI History of Present Illness History of present illness: Ms. Almeida is a 68 year old female who presents for inpatient treatment due to visual hallucinations. Reportedly, patient presented to the ER via EMS after thenursing staff at the assisted living facility called. She lives at [facility]. The pt has been having [...] get her. She follows up with Dr. Galicia who is her outpatient psychiatrist. She feels [...] HI and AVH Insight: Poor Judgment: Poor [facility] Medical History (Updated 12/16/23 @ 14:32 by Juve Spears PAEmilyC) Right knee pain Localized swelling, mass and [...] oral powder 17 g PO DAILY PRN Clttajbrojdf00/10/23 [History Confirmed 12/16/23] albuterol sulfate 90 mcg/actuation [...] 12/16/23] dextromethorphan-guaifenesin 30 mg-600 mg tablet extended pseaqyt81 hr (Mucus DM) 1 tab PO Q12HR [...] Appearance Clear Urine pH 7.0 Ur Specific [place] 1.005 Urine Protein Negative Urine Glucose (UA) Normal Urine Ketones Negative Urine Occult Blood Negative Urine Nitrite Negative Ur Leukocyte Esterase Negative Assessment/Plan (1) Chronic schizophrenia: (2) Acute psychosis: Plan Continue Topamax 25 QHS, Zyprexa 5 mg daily and 15 mg QHS Continue Seroquel 400 mg QHS and 12.5 mg TID Continue [place], clonidine 0.1 mg daily Continue folic acid 1 mg daily and amantadine 100 mg daily Monitor for suicidal behaviors for safety of self (15-minute face check) Recommend attending groups and psychoeducation for building coping skills Typical short- and long-term side effects of the proposed medication regimen, including contraindications and clinically significant interactions, were discussed with the patient. Medication regimen includes Topamax, Zyprexa, Seroquel, [place], clonidine and folic acid. Side effects include [...] Documented By: Mazin Lamb DO, RES 12/17/23 0723 Signed By: <Electronically signed by DO DONOVAN Lamb> 12/17/23 1017 <Electronically signed by Joe Davis MD> 12/17/23 1150 [facility] Work Phone: 1(913) 808-708406-14-2024 Progress note* Progress note Date Encounter Last Documented by 11/15/2023 Chart Update Last documented on 11/15/2023; 12:07 PM, Karla Clark UPPER INSPECTOR; Health [facility] Active Problems & Conditions - J45.909 - [...] tablet by mouth twice a day DR GALICIA, 0 days, 0 refills - Benztropine Mesylate 0.5 MG Oral Tablet Take 1 tablet by mouth twice a day DR GALICIA, 0 days, 0 refills - Calcium 600+D [...] once daily, 0 days, 0 refills - [place] Carbonate 300 MG Oral Tablet one tablet [...] twice daily as needed for agitation/anxietyper Dr. Galicia, 15 days, 0 refills - Polyethylene Glycol [...] by IM route every [address] Galicia, 14 days, 0 refills - Topiramate 25 [...] Bipolar disorder NOS Depression Heart Attack 03/2021 [facility]. Surgical: - General surgery right shoulder ORIF [...] Planning Care Team - Karla Clark CNP [facility]06-14-2024 Instructions Includes: Instructions for all patient encounters Instructions to patient Intervention and counseling on cessation of tobacco use, 3-10 minutes Discussed medication and nicotine replacement for tobacco cessation Last Documented On 3 8:54AM ; [facility] Intervention and counseling on cessation of tobacco use, 3-10 minutes Discussed medication and nicotine replacement for tobacco cessation Last Documented On 2 1:56PM ; [facility] Intervention and counseling on cessation of tobacco use, 3-10 minutes Last Documented On 0 2:07PM ; [facility] Return to the clinic if cond ition worsens or new symptoms arise Last Documented On 9 1:59PM ; [facility] Intervention and counseling on cessation of tobacco use, 3-10 minutes Last Documented On 9 10:39AM ; [facility] Education and Decision Aids were provided during visit for: Discussed nutritional needs teach healthy choices including fruits and vegetables Last Documented On 4 1:26PM ; [facility] Patient education about a pr oper diet Last Documented On 4 1:26PM ; [facility] Discussed concerns about exe rcise : promote physical activity Last Documented On 4 1:26PM ; [facility] Discussed nutritional needs teach healthy choices including fruits and vegetables Last Documented On 3 10:55AM ; [facility] Patient education about a pr oper diet Last Documented On 3 10:55AM ; [facility] Discussed concerns about exe rcise : promote physical activity Last Documented On 3 10:55AM ; [facility] Discussed nutritional needs teach healthy choices including fruits and vegetables Last Documented On 3 9:37AM ; [facility] Patient education about a pr oper diet Last Documented On 3 9:37AM ; [facility] Discussed concerns about exe rcise : promote physical activity Last Documented On 3 9:37AM ; [facility] Not requesting contraception Last Documented On 3 9:37AM ; [facility] Discussed nutritional needs teach healthy choices including fruits and vegetables Last Documented On 3 9:20AM ; [facility] Patient education about a pr oper diet Last Documented On 3 9:20AM ; [facility] Discussed concerns about exe rcise : promote physical activity Last Documented On 3 9:20AM ; [facility] Discussed nutritional needs teach healthy choices including fruits and vegetables Last Documented On 3 2:02PM ; [facility] Patient education about a pr oper diet Last Documented On 3 2:02PM ; [facility] Discussed concerns about exe rcise : promote physical activity Last Documented On 3 2:02PM ; [facility] Discussed nutritional needs teach healthy choices including fruits and vegetables Last Documented On 3 8:32AM ; [facility] Patient education about a pr oper diet Last Documented On 3 8:32AM ; [facility] Discussed concerns about exe rcise : promote physical activity Last Documented On 3 8:32AM ; [facility] Discussed nutritional needs teach healthy choices including fruits and vegetables Last Documented On 3 11:28AM ; [facility] Patient education about a pr oper diet Last Documented On 3 11:28AM ; [facility] Discussed concerns about exe rcise : promote physical activity Last Documented On 3 11:28AM ; [facility] Discussed nutritional needs teach healthy choices including fruits and vegetables Last Documented On 2 2:01PM ; [facility] Patient education about a pr oper diet Last Documented On 2 2:01PM ; [facility] Discussed concerns about exe rcise : promote physical activity Last Documented On 2 2:01PM ; [facility] Discussed nutritional needs teach healthy choices including fruits and vegetables Last Documented On 2 2:11PM ; [facility] Patient education about a pr oper diet Last Documented On 2 2:11PM ; [facility] Discussed concerns about exe rcise : promote physical activity Last Documented On 2 2:11PM ; [facility] Discussed current self-care methods/coping skills. ~Validated and normalized pt's feelings while assisting patient process recent events. ~Discussed ongoing counseling. ~Discussed lifestyle changes to address chronic illness. ~Supported patient's personal health goals ~wordfinds. walk, read, eat, enjoy my best friesnd Last Documented On 2 5:54PM ; [facility] Discussed nutritional needs teach healthy choices including fruits and vegetables Last Documented On 2 10:04AM ; [facility] Patient education about a pr oper diet Last Documented On 2 10:04AM ; [facility] Discussed concerns about exe rcise : promote physical activity Last Documented On 2 10:04AM ; [facility] Discussed nutritional needs teach healthy choices including fruits and vegetables Last Documented On 2 1:25PM ; [facility] Patient education about a pr oper diet Last Documented On 2 1:25PM ; [facility] Discussed concerns about exe rcise : promote physical activity Last Documented On 2 1:25PM ; [facility] Discussed nutritional needs teach healthy choices including fruits and vegetables Last Documented On 1 10:08AM ; [facility] Patient education about a pr oper diet Last Documented On 1 10:08AM ; [facility] Discussed concerns about exe rcise : promote physical activity Last Documented On 1 10:08AM ; [facility] Discussed nutritional needs teach healthy choices including fruits and vegetables Last Documented On 1 1:12PM ; [facility] Patient education about a pr oper diet Last Documented On 1 1:12PM ; [facility] Patient education about a pr oper diet Last Documented On 1 1:30PM ; [facility] Patient education about meal planning Last Documented On 1 1:30PM ; [facility] Education about changing eat ing habits Last Documented On 1 1:30PM ; [facility] Patient education about high fiber diet Last Documented On 1 1:30PM ; [facility] Patient education about low fat diet Last Documented On 1 1:30PM ; [facility] Patient education about low cholesterol diet Last Documented On 1 1:30PM ; [facility] Patient education about low carbohydrate diet Last Documented On 1 1:30PM ; [facility] Patient education about high protein diet Last Documented On 1 1:30PM ; [facility] Discussed concerns about exe rcise : promote physical activity Last Documented On 1 1:12PM ; [facility] Education/counseling conduct ed by pharmacist Last Documented On 0 1:39PM ; [facility] Vaccination counseling Last Documented On 0 1:39PM ; [facility] Discussed concerns about exe rcise : promote physical activity Last Documented On 0 2:16PM ; [facility] Patient goals decrease short ness of breath episodes Last Documented On 0 2:11PM ; [facility] Patient states that she uses her rescue [...] recently Last Documented On 0 2:24PM ; [facility] Patient education about a pr oper diet Last Documented On 0 2:54PM ; [facility] Patient education about meal planning Last Documented On 0 2:54PM ; [facility] Education about changing eat ing habits Last Documented On 0 2:54PM ; [facility] Patient education about high fiber diet Last Documented On 0 2:54PM ; [facility] Patient education about low fat diet Last Documented On 0 2:54PM ; [facility] Patient education about low cholesterol diet Last Documented On 0 2:54PM ; [facility] Patient education about low carbohydrate diet Last Documented On 0 2:54PM ; [facility] Patient education about high protein diet Last Documented On 0 2:54PM ; [facility] Discussed nutritional needs teach healthy choices including fruits and vegetables Last Documented On 0 11:11AM ; [facility] Patient education about a pr oper diet Last Documented On 0 11:11AM ; [facility] Patient education about a pr oper diet Last Documented On 0 11:28AM ; [facility] Patient education about meal planning Last Documented On 0 11:28AM ; [facility] Education about changing eat ing habits Last Documented On 0 11:28AM ; [facility] Patient education about high fiber diet Last Documented On 0 11:28AM ; [facility] Patient education about low fat diet Last Documented On 0 11:28AM ; [facility] Patient education about low cholesterol diet Last Documented On 0 11:28AM ; [facility] Patient education about low carbohydrate diet Last Documented On 0 11:28AM ; [facility] Patient education about high protein diet Last Documented On 0 11:28AM ; [facility] Discussed concerns about exe rcise : promote physical activity Last Documented On 0 11:11AM ; [facility] Education/counseling conduct ed by pharmacist Last Documented On 0 1:41PM ; [facility] Patient states that she lonnie gonzalez has [...] own Last Documented On 0 2:08PM ; [facility] Education/counseling conduct ed by pharmacist Last Documented On 9 1:12PM ; [facility] Patient states that she lonnie gonzalez has issues with her inhaler with the spacer. Patient did not bring in inhaler or spacer. Patient was told to bring in inhalers at next scheduled visit for pharmacist to assess inhalation technique. Patient is agreeable Last Documented On 9 1:13PM ; [facility] Patient goals Start using ch deon to help with inhaling dulera Last Documented On 9 2:40PM ; [facility] Patient states that she is g etting [...] vaccines Last Documented On 9 2:51PM ; [facility] Discussed nutritional needs teach healthy choices including fruits and vegetables Last Documented On 9 9:29AM ; [facility] Patient education about a pr oper diet Last Documented On 9 9:29AM ; [facility] Discussed concerns about exe rcise : promote physical activity Last Documented On 9 9:29AM ; [facility] Work Phone: [phone]) 510-428305-03-2024 Evaluation note Includes: Assessments for all patient encounters Findings Encounter Date [[id number] - Nicotine dependen ce, cigarettes, uncomplicated] continuous dependence on cigarette smoking Medical Established Patient with Karla Clark UPPER INSPECTOR 10/04/2023 Last Documented On 4 6:30PM ; [facility] [Z12.11 - Encounter for scre ening for malignant neoplasm of colon] Colon screening Medical Established Patient with Karla Clark [facility] 10/04/2023 Last Documented On 4 6:30PM ; [facility] [Z68.25 - Body mass index [B ME] 25.0-25.9, adult] assessment of body mass index Medical Established Patient with Karla Clark [facility] 10/04/2023 Last Documented On 4 6:30PM ; [facility] Diabetes Risk Test Score was five score 10/04/2023 Medical Established Patient with Karla Clark [facility] 10/04/2023 Last Documented On 4 6:30PM ; [facility] Encounter for Immunization Medical Estab lished Patient with Karla Clark UPPER INSPECTOR 10/04/2023 Last Documented On 4 6:30PM ; [facility] [D48.5 - Neoplasm of uncerta in behavior of skin] skin neoplasm of uncertain behavior Medical Established Patient with Karla Clark UPPER INSPECTOR 05/22/2023 Last Documented On 3 1:30PM ; [facility] [Z68.24 - Body mass index [B ME] 24.0-24.9, adult] assessment of body mass index Medical Established Patient with Karla Clark UPPER INSPECTOR 05/22/2023 Last Documented On 3 1:30PM ; [facility] Assessment of tobacco use Medical Establ ished Patient with Karla Clark UPPER INSPECTOR 05/22/2023 Last Documented On 3 1:30PM ; [facility] [R30.0 - Dysuria] Dysuria Chart Update with Gary Clark [facility] 03/21/2023 Last Documented On 3 11:27AM ; [facility] [Z12.39 - Encounter for othe r screening for malignant neoplasm of breast] visit for: screening for malignant breast neoplasm Medical Established Patient with Aaron Whitaker UPPER INSPECTOR 02/28/2023 Last Documented On 3 9:51AM ; [facility] [Z68.24 - Body mass index [B ME] 24.0-24.9, adult] assessment of body mass index Medical Established Patient with Aaron Whitaker UPPER INSPECTOR 02/28/2023 Last Documented On 3 9:51AM ; [facility] Assessment of tobacco use Medical Establ ished Patient with Aaron Whitaker UPPER INSPECTOR 02/28/2023 Last Documented On 3 9:51AM ; [facility] Chronic obstructive pulmonary disease Me dical Established Patient with Aaron Whitaker UPPER INSPECTOR 02/28/2023 Last Documented On 3 9:51AM ; [facility] [J20.9 - Acute bronchitis, unspecified] acute bronchitis Medical Established Patient with Karla Clark UPPER INSPECTOR 11/19/2022 Last Documented On 3 10:15AM ; [facility] [M79.621 - Pain in right upp er arm] pain in upper arm Medical Established Patient with Karla Clark UPPER INSPECTOR 11/19/2022 Last Documented On 3 10:15AM ; [facility] [Z68.23 - Body mass index [B ME] 23.0-23.9, adult] assessment of body mass index Medical Established Patient with Karla Clark UPPER INSPECTOR 11/19/2022 Last Documented On 3 10:15AM ; [facility] [M79.601 - Pain in right arm ] pain in right arm Medical Established Patient with Karla Clark UPPER INSPECTOR 09/18/2022 Last Documented On 3 2:33PM ; [facility] [Z68.24 - Body mass index [B ME] 24.0-24.9, adult] assessment of body mass index Medical Established Patient with Karla Clark UPPER INSPECTOR 09/18/2022 Last Documented On 3 2:33PM ; [facility] Assessment of tobacco use Medical Establ ished Patient with Karla Clark UPPER INSPECTOR 09/18/2022 Last Documented On 3 2:33PM ; [facility] [M25.569 - Pain in unspecifi ed knee] arthralgia of knee / patella / tibia / fibula Medical Established Patient with Karla Clrak UPPER INSPECTOR 08/27/2022 Last Documented On 3 9:20AM ; [facility] [Z68.24 - Body mass index [B ME] 24.0-24.9, adult] assessment of body mass index Medical Established Patient with Karla Clark UPPER INSPECTOR 08/27/2022 Last Documented On 3 9:20AM ; [facility] Intervention and counseling on cessation of tobacco use, 3-10 minutes Discussed medication and nicotine replacement for tobacco cessation Medical Established Patient with Karla Clark UPPER INSPECTOR 08/27/2022 Last Documented On 3 9:20AM ; [facility] Nicotine dependence Medical Established Patient with Karla Clark UPPER INSPECTOR 08/27/2022 Last Documented On 3 9:20AM ; [facility] Visit for routine adult H&P without abnormal findings Medical Established Patient with Karla Clark CNP 08/27/2022 Last Documented On 3 9:20AM ; [facility] [H92.02 - Otalgia, left ear] earache Med ical Established Patient with Karla Clark UPPER INSPECTOR 06/18/2022 Last Documented On 3 12:11PM ; [facility] [M79.604 - Pain in right leg ] pain in right leg Medical Established Patient with Karla Clark UPPER INSPECTOR 06/18/2022 Last Documented On 3 12:11PM ; [facility] [Z68.24 - Body mass index [B ME] 24.0-24.9, adult] assessment of body mass index Medical Established Patient with Karla Clark UPPER INSPECTOR 06/18/2022 Last Documented On 3 12:11PM ; [facility] Assessment of tobacco use Medical Establ ished Patient with Karla Clark UPPER INSPECTOR 06/18/2022 Last Documented On 3 12:11PM ; [facility] Diabetes Risk Test Score was four score 06/18/2022 Medical Established Patient with Karla Clark UPPER INSPECTOR 06/18/2022 Last Documented On 3 12:11PM ; [facility] Schizoaffective disorder Established Patient with Yin Feliz LPCC-S 03/20/2022 Last Documented On 2 12:13AM ; [facility] No cough Medical Established Patient with Karla Floresen UPPER INSPECTOR 12/20/2021 Last Documented On 2 3:12PM ; [facility] Visit for: screening for hum an immunodeficiency virus Medical Established Patient with Karla Clark UPPER INSPECTOR 12/20/2021 Last Documented On 2 3:12PM ; [facility] Z68.24 - Body mass index [BM I] 24.0-24.9, adult Medical Established Patient with Karlajulius Floresen UPPER INSPECTOR 12/20/2021 Last Documented On 2 3:12PM ; [facility] Bipolar disorder NOS Established Patient with Yin Feliz LPCC-S 11/03/2021 Last Documented On 2 7:00PM ; [facility] Bipolar schizoaffective disorder BH Esta blished Patient with Yin Feliz LPCC-S 11/03/2021 Last Documented On 2 7:00PM ; [facility] PLAN Medical Established Patient with Don Pino MD 11/03/2021 Last Documented On 2 10:40AM ; [facility] Abnormal electrocardiogram Medical Estab lished Patient with Don Pino MD 11/03/2021 Last Documented On 2 10:40AM ; [facility] Z68.24 - Body mass index [BM I] 24.0-24.9, adult Medical Established Patient with Don Pino MD 11/03/2021 Last Documented On 2 10:40AM ; [facility] Cough Medical Established Patient with Karla Amber UPPER INSPECTOR 07/28/2021 Last Documented On 2 2:01PM ; [facility] Intervention and counseling on cessation of tobacco use, 3-10 minutes Discussed medication and nicotine replacement for tobacco cessation Medical Established Patient with Karla Clark UPPER INSPECTOR 07/28/2021 Last Documented On 2 2:01PM ; [facility] Nicotine dependence Medical Established Patient with Karla Amber UPPER INSPECTOR 07/28/2021 Last Documented On 2 2:01PM ; [facility] Z68.24 - Body mass index [BM I] 24.0-24.9, adult Medical Established Patient with Karlajulius Clark UPPER INSPECTOR 07/28/2021 Last Documented On 2 2:01PM ; [facility] Assess Colon screening Medical Established Patie nt with Karla Clark UPPER INSPECTOR 05/08/2021 Last Documented On 1 10:59AM ; [facility] Diabetes Risk Test Score was four score 05/08/2021 Medical Established Patient with Karla Amber UPPER INSPECTOR 05/08/2021 Last Documented On 1 10:59AM ; [facility] Routine adult history and ph ysical (18-64 yrs) without abnormal findings Medical Established Patient with Karlajulius Clark UPPER INSPECTOR 05/08/2021 Last Documented On 1 10:59AM ; [facility] Z68.24 - Body mass index [BM I] 24.0-24.9, adult Medical Established Patient with Karal Amber UPPER INSPECTOR 05/08/2021 Last Documented On 1 10:59AM ; [facility] Z68.24 - Body mass index [BM I] 24.0-24.9, adult Medical Established Patient with Karla Amber UPPER INSPECTOR 06/17/2020 Last Documented On 1 10:30AM ; [facility] Overweight Medical Established Patient with Karla Amber UPPER INSPECTOR 06/06/2020 Last Documented On 1 2:06PM ; [facility] Z68.25 - Body mass index [BM I] 25.0-25.9, adult Medical Established Patient with Karla Amber UPPER INSPECTOR 06/06/2020 Last Documented On 1 2:06PM ; [facility] Antiasthmatics [facility] Asthma Clinic-New with Karla Amber [facility] 05/06/2020 Last Documented On 0 7:27PM ; [facility] Assessment of tobacco use [facility] Clinic-New with Karla Amber [facility] 05/06/2020 Last Documented On 0 7:27PM ; [facility] Body mass index [facility] Clinic-New with Karla Amber [facility] 05/06/2020 Last Documented On 0 7:27PM ; [facility] Chronic obstructive pulmonary disease S [facility]-New with Karla Amber UPPER INSPECTOR 05/06/2020 Last Documented On 0 7:27PM ; [facility] Overweight [facility] Ast[facility] Clinic-New with Karla Amber [facility] 05/06/2020 Last Documented On 0 7:27PM ; [facility] Z11.4 - Encounter for screen ing for human immunodeficiency virus [HIV] [facility] with Karla Amber UPPER INSPECTOR 05/06/2020 Last Documented On 0 7:27PM ; [facility] Diabetes Risk Test Score was three score 03/31/2020 Medical Established Patient with Karla Amber UPPER INSPECTOR 03/31/2020 Last Documented On 0 3:22PM ; [facility] Overweight Medical Established Patient with Karla Amber UPPER INSPECTOR 03/31/2020 Last Documented On 0 3:22PM ; [facility] Z68.25 - Body mass index [BM I] 25.0-25.9, adult Medical Established Patient with Karla Amber UPPER INSPECTOR 03/31/2020 Last Documented On 0 3:22PM ; [facility] Encounter for Immunization Nurse Visit with Gary Clark UPPER INSPECTOR 03/14/2020 Last Documented On 0 5:11PM ; [facility] Body mass index Medical Established Patient with Karla Clark UPPER INSPECTOR 02/26/2020 Last Documented On 0 1:18PM ; [facility] Overweight Medical Established Patient with Karlajulius Floresen UPPER INSPECTOR 02/26/2020 Last Documented On 0 1:18PM ; [facility] Overweight Medical Established Patient with Karla Floresen UPPER INSPECTOR 07/23/2019 Last Documented On 0 2:33PM ; [facility] Z68.27 - Body mass index (BM I) 27.0-27.9, adult Medical Established Patient with Karla Clark UPPER INSPECTOR 07/23/2019 Last Documented On 0 2:33PM ; [facility] Occasional asthma [facility]- [facility]hma Clinic- F/U with A french Clark UPPER INSPECTOR 06/05/2019 Last Documented On 0 7:04PM ; [facility] Overweight [facility]- [facility] Clinic- F/U with Alta Clark UPPER INSPECTOR 06/05/2019 Last Documented On 0 7:04PM ; [facility] Z68.27 - Body mass index (BM I) 27.0-27.9 adult [facility]- [facility] Clinic- F/U with Karla Clark UPPER INSPECTOR 06/05/2019 Last Documented On 0 7:04PM ; [facility] Occasional asthma CPS Med Review with Karla dinh UPPER INSPECTOR 04/23/2019 Last Documented On 9 4:01PM ; [facility] Overweight CPS Med Review with Karla Floresen UPPER INSPECTOR 04/23/2019 Last Documented On 9 4:01PM ; [facility] Z68.27 - Body mass index (BM I) 27.0-27.9 adult CPS Med Review with Karla Floresen UPPER INSPECTOR 04/23/2019 Last Documented On 9 4:01PM ; [facility] Acute pharyngitis Medical Established Patient wi maxwell Kelley UPPER INSPECTOR 04/15/2019 Last Documented On 9 12:31PM ; [facility] Asthmatic bronchitis with ac cahto exacerbation Medical Established Patient with Brandy Warren UPPER INSPECTOR 04/15/2019 Last Documented On 9 12:31PM ; [facility] Fagerstrom Score was two Medical Established Pat ient with Brandy Warren UPPER INSPECTOR 04/15/2019 Last Documented On 9 12:31PM ; [facility] PHQ-9: total score was three 04/15/2019 Medical Established Patient with Brandy Warren UPPER INSPECTOR 04/15/2019 Last Documented On 9 12:31PM ; [facility] Body mass index Medical Established Patient with Karla Amber UPPER INSPECTOR 03/05/2019 Last Documented On 9 10:27AM ; [facility] Diabetes Risk Test Score was three score Medical Established Patient with Karla Amber UPPER INSPECTOR 03/05/2019 Last Documented On 9 10:27AM ; [facility] Overweight Medical Established Patient with Karla Amber UPPER INSPECTOR 03/05/2019 Last Documented On 9 10:27AM ; [facility] Z68.28 - Body mass index (BM I) 28.0-28.9, adult Medical Established Patient with Karlajulius Floresen UPPER INSPECTOR 12/22/2018 Last Documented On 9 10:32AM ; [facility] Assess routine adult history and physical (18 - 64 yrs) Medical Established Patient with Karla Amber UPPER INSPECTOR 11/06/2018 Last Documented On 9 2:26PM ; [facility] Overweight Medical Established Patient with Karla Amber UPPER INSPECTOR 11/06/2018 Last Documented On 9 2:26PM ; [facility] Z68.28 - Body mass index (BM I) 28.0-28.9, adult Medical Established Patient with Karla Amber UPPER INSPECTOR 11/06/2018 Last Documented On 9 2:26PM ; [facility] Assess dysphagia Medical Established Patient wit h Karlajulius Floresen UPPER INSPECTOR 09/11/2018 Last Documented On 9 10:53AM ; [facility] Assess routine adult history and physical (18 - 64 yrs) Medical Established Patient with Karla Amber UPPER INSPECTOR 09/11/2018 Last Documented On 9 10:53AM ; [facility] Assess primary insomnia with sleep apnea Medical Established Patient with Karla Clark CNP 09/04/2018 Last Documented On 9 2:23PM ; [facility] Assess routine adult history and physical (18 - 64 yrs) Medical Established Patient with Karla Clark UPPER INSPECTOR 09/04/2018 Last Documented On 9 2:23PM ; [facility] Overweight Medical Established Patient with Karla Clark UPPER INSPECTOR 09/04/2018 Last Documented On 9 2:23PM ; [facility] Z68.29 - Body mass index (BM I) 29.0-29.9, adult Medical Established Patient with Karla Clark CNP 09/04/2018 Last Documented On 9 2:23PM ; [facility] Assess vaginal candidiasis Medical Estab lished Patient with Karla Clark CNP 07/31/2018 Last Documented On 9 2:12PM ; [facility] Work Phone: 1(204) 806-564605-03-2024 Progress note* Progress note Date Encounter Last Documented by 10/04/2023 Medical Established Patient Last documented on 10/04/2023; 6:30 PM, Karla Clark DAKSHA; [facility] Active Problems & Conditions - J45.909 - [...] thyroid gland removed in Jul 2023 at [facility] Had lesion removed from nose and going [...] tablet by mouth twice a day DR GALICIA, 0 days, 0 refills - Benztropine Mesylate 0.5 MG Oral Tablet Take 1 tablet by mouth twice a day DR GALICIA, 0 days, 0 refills - Calcium 600+D [...] once daily, 0 days, 0 refills - [place] Carbonate 150 MG Oral Capsule one capsule [...] Bipolar disorder NOS Depression Heart Attack 03/2021 [facility]. Surgical: - General surgery right shoulder ORIF [...] BP-Sitting L142/88 mmHg BP Cuff SizeRegular Pulse Rate-[id number] bpm Rszdwk30 in [id number] lbs Body Mass Index25.2 kg/m2 Body Surface Area1.7 m2 Oxygen Zxhrdqbfrm15 % - Vitals taken 10/04/2023 01:33 pm [...] needed clothing: No, unable to get needed [facility] director: No, unable to get needed phone: No, [...] 60 years or older (3 points) [Pre-DM]. [facility]05-03-2024 Instructions Includes: Instructions for all patient encounters Instructions to patient Intervention and counseling on cessation of tobacco use, 3-10 minutes Discussed medication and nicotine replacement for tobacco cessation Last Documented On 3 8:54AM ; [facility] Intervention and counseling on cessation of tobacco use, 3-10 minutes Discussed medication and nicotine replacement for tobacco cessation Last Documented On 2 1:56PM ; [facility] Intervention and counseling on cessation of tobacco use, 3-10 minutes Last Documented On 0 2:07PM ; [facility] Return to the clinic if cond ition worsens or new symptoms arise Last Documented On 9 1:59PM ; [facility] Intervention and counseling on cessation of tobacco use, 3-10 minutes Last Documented On 9 10:39AM ; [facility] Education and Decision Aids were provided during visit for: Discussed nutritional needs teach healthy choices including fruits and vegetables Last Documented On 4 1:26PM ; [facility] Patient education about a pr oper diet Last Documented On 4 1:26PM ; [facility] Discussed concerns about exe rcise : promote physical activity Last Documented On 4 1:26PM ; [facility] Discussed nutritional needs teach healthy choices including fruits and vegetables Last Documented On 3 10:55AM ; [facility] Patient education about a pr oper diet Last Documented On 3 10:55AM ; [facility] Discussed concerns about exe rcise : promote physical activity Last Documented On 3 10:55AM ; [facility] Discussed nutritional needs teach healthy choices including fruits and vegetables Last Documented On 3 9:37AM ; [facility] Patient education about a pr oper diet Last Documented On 3 9:37AM ; [facility] Discussed concerns about exe rcise : promote physical activity Last Documented On 3 9:37AM ; [facility] Not requesting contraception Last Documented On 3 9:37AM ; [facility] Discussed nutritional needs teach healthy choices including fruits and vegetables Last Documented On 3 9:20AM ; [facility] Patient education about a pr oper diet Last Documented On 3 9:20AM ; [facility] Discussed concerns about exe rcise : promote physical activity Last Documented On 3 9:20AM ; [facility] Discussed nutritional needs teach healthy choices including fruits and vegetables Last Documented On 3 2:02PM ; [facility] Patient education about a pr oper diet Last Documented On 3 2:02PM ; [facility] Discussed concerns about exe rcise : promote physical activity Last Documented On 3 2:02PM ; [facility] Discussed nutritional needs teach healthy choices including fruits and vegetables Last Documented On 3 8:32AM ; [facility] Patient education about a pr oper diet Last Documented On 3 8:32AM ; [facility] Discussed concerns about exe rcise : promote physical activity Last Documented On 3 8:32AM ; [facility] Discussed nutritional needs teach healthy choices including fruits and vegetables Last Documented On 3 11:28AM ; [facility] Patient education about a pr oper diet Last Documented On 3 11:28AM ; [facility] Discussed concerns about exe rcise : promote physical activity Last Documented On 3 11:28AM ; [facility] Discussed nutritional needs teach healthy choices including fruits and vegetables Last Documented On 2 2:01PM ; [facility] Patient education about a pr oper diet Last Documented On 2 2:01PM ; [facility] Discussed concerns about exe rcise : promote physical activity Last Documented On 2 2:01PM ; [facility] Discussed nutritional needs teach healthy choices including fruits and vegetables Last Documented On 2 2:11PM ; [facility] Patient education about a pr oper diet Last Documented On 2 2:11PM ; [facility] Discussed concerns about exe rcise : promote physical activity Last Documented On 2 2:11PM ; [facility] Discussed current self-care methods/coping skills. ~Validated and normalized pt's feelings while assisting patient process recent events. ~Discussed ongoing counseling. ~Discussed lifestyle changes to address chronic illness. ~Supported patient's personal health goals ~wordfinds. walk, read, eat, enjoy my best friesnd Last Documented On 2 5:54PM ; [facility] Discussed nutritional needs teach healthy choices including fruits and vegetables Last Documented On 2 10:04AM ; [facility] Patient education about a pr oper diet Last Documented On 2 10:04AM ; [facility] Discussed concerns about exe rcise : promote physical activity Last Documented On 2 10:04AM ; [facility] Discussed nutritional needs teach healthy choices including fruits and vegetables Last Documented On 2 1:25PM ; [facility] Patient education about a pr oper diet Last Documented On 2 1:25PM ; [facility] Discussed concerns about exe rcise : promote physical activity Last Documented On 2 1:25PM ; [facility] Discussed nutritional needs teach healthy choices including fruits and vegetables Last Documented On 1 10:08AM ; [facility] Patient education about a pr oper diet Last Documented On 1 10:08AM ; [facility] Discussed concerns about exe rcise : promote physical activity Last Documented On 1 10:08AM ; [facility] Discussed nutritional needs teach healthy choices including fruits and vegetables Last Documented On 1 1:12PM ; [facility] Patient education about a pr oper diet Last Documented On 1 1:12PM ; [facility] Patient education about a pr oper diet Last Documented On 1 1:30PM ; [facility] Patient education about meal planning Last Documented On 1 1:30PM ; [facility] Education about changing eat ing habits Last Documented On 1 1:30PM ; [facility] Patient education about high fiber diet Last Documented On 1 1:30PM ; [facility] Patient education about low fat diet Last Documented On 1 1:30PM ; [facility] Patient education about low cholesterol diet Last Documented On 1 1:30PM ; [facility] Patient education about low carbohydrate diet Last Documented On 1 1:30PM ; [facility] Patient education about high protein diet Last Documented On 1 1:30PM ; [facility] Discussed concerns about exe rcise : promote physical activity Last Documented On 1 1:12PM ; [facility] Education/counseling conduct ed by pharmacist Last Documented On 0 1:39PM ; [facility] Vaccination counseling Last Documented On 0 1:39PM ; [facility] Discussed concerns about exe rcise : promote physical activity Last Documented On 0 2:16PM ; [facility] Patient goals decrease short ness of breath episodes Last Documented On 0 2:11PM ; [facility] Patient states that she uses her rescue [...] recently Last Documented On 0 2:24PM ; [facility] Patient education about a pr oper diet Last Documented On 0 2:54PM ; [facility] Patient education about meal planning Last Documented On 0 2:54PM ; [facility] Education about changing eat ing habits Last Documented On 0 2:54PM ; [facility] Patient education about high fiber diet Last Documented On 0 2:54PM ; [facility] Patient education about low fat diet Last Documented On 0 2:54PM ; [facility] Patient education about low cholesterol diet Last Documented On 0 2:54PM ; [facility] Patient education about low carbohydrate diet Last Documented On 0 2:54PM ; [facility] Patient education about high protein diet Last Documented On 0 2:54PM ; [facility] Discussed nutritional needs teach healthy choices including fruits and vegetables Last Documented On 0 11:11AM ; [facility] Patient education about a pr oper diet Last Documented On 0 11:11AM ; [facility] Patient education about a pr oper diet Last Documented On 0 11:28AM ; [facility] Patient education about meal planning Last Documented On 0 11:28AM ; [facility] Education about changing eat ing habits Last Documented On 0 11:28AM ; [facility] Patient education about high fiber diet Last Documented On 0 11:28AM ; [facility] Patient education about low fat diet Last Documented On 0 11:28AM ; [facility] Patient education about low cholesterol diet Last Documented On 0 11:28AM ; [facility] Patient education about low carbohydrate diet Last Documented On 0 11:28AM ; [facility] Patient education about high protein diet Last Documented On 0 11:28AM ; [facility] Discussed concerns about exe rcise : promote physical activity Last Documented On 0 11:11AM ; [facility] Education/counseling conduct ed by pharmacist Last Documented On 0 1:41PM ; [facility] Patient states that she lonnie gonzalez has [...] own Last Documented On 0 2:08PM ; [facility] Education/counseling conduct ed by pharmacist Last Documented On 9 1:12PM ; [facility] Patient states that she lonnie gonzalez has issues with her inhaler with the spacer. Patient did not bring in inhaler or spacer. Patient was told to bring in inhalers at next scheduled visit for pharmacist to assess inhalation technique. Patient is agreeable Last Documented On 9 1:13PM ; [facility] Patient goals Start using ch deon to help with inhaling dulera Last Documented On 9 2:40PM ; [facility] Patient states that she is g etting [...] vaccines Last Documented On 9 2:51PM ; [facility] Discussed nutritional needs teach healthy choices including fruits and vegetables Last Documented On 9 9:29AM ; [facility] Patient education about a pr oper diet Last Documented On 9 9:29AM ; [facility] Discussed concerns about exe rcise : promote physical activity Last Documented On 9 9:29AM ; [facility] Work Phone: 1(851) 177-580405-02-2024 Instructions Includes: Instructions for all patient encounters Instructions to patient Intervention and counseling on cessation of tobacco use, 3-10 minutes Discussed medication and nicotine replacement for tobacco cessation Last Documented On 3 8:54AM ; [facility] Intervention and counseling on cessation of tobacco use, 3-10 minutes Discussed medication and nicotine replacement for tobacco cessation Last Documented On 2 1:56PM ; [facility] Intervention and counseling on cessation of tobacco use, 3-10 minutes Last Documented On 0 2:07PM ; [facility] Return to the clinic if cond ition worsens or new symptoms arise Last Documented On 9 1:59PM ; [facility] Intervention and counseling on cessation of tobacco use, 3-10 minutes Last Documented On 9 10:39AM ; [facility] Education and Decision Aids were provided during visit for: Discussed nutritional needs teach healthy choices including fruits and vegetables Last Documented On 3 10:55AM ; [facility] Patient education about a pr oper diet Last Documented On 3 10:55AM ; [facility] Discussed concerns about exe rcise : promote physical activity Last Documented On 3 10:55AM ; [facility] Discussed nutritional needs teach healthy choices including fruits and vegetables Last Documented On 3 9:37AM ; [facility] Patient education about a pr oper diet Last Documented On 3 9:37AM ; [facility] Discussed concerns about exe rcise : promote physical activity Last Documented On 3 9:37AM ; [facility] Not requesting contraception Last Documented On 3 9:37AM ; [facility] Discussed nutritional needs teach healthy choices including fruits and vegetables Last Documented On 3 9:20AM ; [facility] Patient education about a pr oper diet Last Documented On 3 9:20AM ; [facility] Discussed concerns about exe rcise : promote physical activity Last Documented On 3 9:20AM ; [facility] Discussed nutritional needs teach healthy choices including fruits and vegetables Last Documented On 3 2:02PM ; [facility] Patient education about a pr oper diet Last Documented On 3 2:02PM ; [facility] Discussed concerns about exe rcise : promote physical activity Last Documented On 3 2:02PM ; [facility] Discussed nutritional needs teach healthy choices including fruits and vegetables Last Documented On 3 8:32AM ; [facility] Patient education about a pr oper diet Last Documented On 3 8:32AM ; [facility] Discussed concerns about exe rcise : promote physical activity Last Documented On 3 8:32AM ; [facility] Discussed nutritional needs teach healthy choices including fruits and vegetables Last Documented On 3 11:28AM ; [facility] Patient education about a pr oper diet Last Documented On 3 11:28AM ; [facility] Discussed concerns about exe rcise : promote physical activity Last Documented On 3 11:28AM ; [facility] Discussed nutritional needs teach healthy choices including fruits and vegetables Last Documented On 2 2:01PM ; [facility] Patient education about a pr oper diet Last Documented On 2 2:01PM ; [facility] Discussed concerns about exe rcise : promote physical activity Last Documented On 2 2:01PM ; [facility] Discussed nutritional needs teach healthy choices including fruits and vegetables Last Documented On 2 2:11PM ; [facility] Patient education about a pr oper diet Last Documented On 2 2:11PM ; [facility] Discussed concerns about exe rcise : promote physical activity Last Documented On 2 2:11PM ; [facility] Discussed current self-care methods/coping skills. ~Validated and normalized pt's feelings while assisting patient process recent events. ~Discussed ongoing counseling. ~Discussed lifestyle changes to address chronic illness. ~Supported patient's personal health goals ~wordfinds. walk, read, eat, enjoy my best friesnd Last Documented On 2 5:54PM ; [facility] Discussed nutritional needs teach healthy choices including fruits and vegetables Last Documented On 2 10:04AM ; [facility] Patient education about a pr oper diet Last Documented On 2 10:04AM ; [facility] Discussed concerns about exe rcise : promote physical activity Last Documented On 2 10:04AM ; [facility] Discussed nutritional needs teach healthy choices including fruits and vegetables Last Documented On 2 1:25PM ; [facility] Patient education about a pr oper diet Last Documented On 2 1:25PM ; [facility] Discussed concerns about exe rcise : promote physical activity Last Documented On 2 1:25PM ; [facility] Discussed nutritional needs teach healthy choices including fruits and vegetables Last Documented On 1 10:08AM ; [facility] Patient education about a pr oper diet Last Documented On 1 10:08AM ; [facility] Discussed concerns about exe rcise : promote physical activity Last Documented On 1 10:08AM ; [facility] Discussed nutritional needs teach healthy choices including fruits and vegetables Last Documented On 1 1:12PM ; [facility] Patient education about a pr oper diet Last Documented On 1 1:12PM ; [facility] Patient education about a pr oper diet Last Documented On 1 1:30PM ; [facility] Patient education about meal planning Last Documented On 1 1:30PM ; [facility] Education about changing eat ing habits Last Documented On 1 1:30PM ; [facility] Patient education about high fiber diet Last Documented On 1 1:30PM ; [facility] Patient education about low fat diet Last Documented On 1 1:30PM ; [facility] Patient education about low cholesterol diet Last Documented On 1 1:30PM ; [facility] Patient education about low carbohydrate diet Last Documented On 1 1:30PM ; [facility] Patient education about high protein diet Last Documented On 1 1:30PM ; [facility] Discussed concerns about exe rcise : promote physical activity Last Documented On 1 1:12PM ; [facility] Education/counseling conduct ed by pharmacist Last Documented On 0 1:39PM ; [facility] Vaccination counseling Last Documented On 0 1:39PM ; [facility] Discussed concerns about exe rcise : promote physical activity Last Documented On 0 2:16PM ; [facility] Patient goals decrease short ness of breath episodes Last Documented On 0 2:11PM ; [facility] Patient states that she uses her rescue [...] recently Last Documented On 0 2:24PM ; [facility] Patient education about a pr oper diet Last Documented On 0 2:54PM ; [facility] Patient education about meal planning Last Documented On 0 2:54PM ; [facility] Education about changing eat ing habits Last Documented On 0 2:54PM ; [facility] Patient education about high fiber diet Last Documented On 0 2:54PM ; [facility] Patient education about low fat diet Last Documented On 0 2:54PM ; [facility] Patient education about low cholesterol diet Last Documented On 0 2:54PM ; [facility] Patient education about low carbohydrate diet Last Documented On 0 2:54PM ; [facility] Patient education about high protein diet Last Documented On 0 2:54PM ; [facility] Discussed nutritional needs teach healthy choices including fruits and vegetables Last Documented On 0 11:11AM ; [facility] Patient education about a pr oper diet Last Documented On 0 11:11AM ; [facility] Patient education about a pr oper diet Last Documented On 0 11:28AM ; [facility] Patient education about meal planning Last Documented On 0 11:28AM ; [facility] Education about changing eat ing habits Last Documented On 0 11:28AM ; [facility] Patient education about high fiber diet Last Documented On 0 11:28AM ; [facility] Patient education about low fat diet Last Documented On 0 11:28AM ; [facility] Patient education about low cholesterol diet Last Documented On 0 11:28AM ; [facility] Patient education about low carbohydrate diet Last Documented On 0 11:28AM ; [facility] Patient education about high protein diet Last Documented On 0 11:28AM ; [facility] Discussed concerns about exe rcise : promote physical activity Last Documented On 0 11:11AM ; [facility] Education/counseling conduct ed by pharmacist Last Documented On 0 1:41PM ; [facility] Patient states that she lonnie gonzalez has [...] own Last Documented On 0 2:08PM ; [facility] Education/counseling conduct ed by pharmacist Last Documented On 9 1:12PM ; [facility] Patient states that she lonnie gonzalez has issues with her inhaler with the spacer. Patient did not bring in inhaler or spacer. Patient was told to bring in inhalers at next scheduled visit for pharmacist to assess inhalation technique. Patient is agreeable Last Documented On 9 1:13PM ; [facility] Patient goals Start using ch deon to help with inhaling dulera Last Documented On 9 2:40PM ; [facility] Patient states that she is g etting [...] vaccines Last Documented On 9 2:51PM ; [facility] Discussed nutritional needs teach healthy choices including fruits and vegetables Last Documented On 9 9:29AM ; [facility] Patient education about a pr oper diet Last Documented On 9 9:29AM ; [facility] Discussed concerns about exe rcise : promote physical activity Last Documented On 9 9:29AM ; [facility] Work Phone: 1(586) 608-565005-01-2024 Progress note* Progress note Date Encounter Last Documented by 10/02/2023 Chart Update Last documented on 10/03/2023; 8:39 AM, Karla Clark CNP; [facility] Active Problems & Conditions - J20.9 [...] 1 actuation by mouth twice daily (replaces HangIt r/t insurance), 30 days, 11 refills - Albuterol Sulfate HFA 108 (90 Base) MCG/ACT Inhalation Aerosol Solution INHALE 1 OR 2 PUFFS EVERY 6 HOURS NEEDED FOR WHEEZING/SHORTNESS OF BREATH (may sub equivalent), 30 days, 11 refills - Amantadine HCl 100 MG Oral Capsule Take 1 tablet by mouth twice a day DR GALICIA, 0 days, 0 refills - Benztropine Mesylate 0.5 MG Oral Tablet Take 1 tablet by mouth twice a day DR GALICIA, 0 days, 0 refills - Calcium 600+D [...] once daily, 0 days, 0 refills - [place] Carbonate 150 MG Oral Capsule one capsule [...] Bipolar disorder NOS Depression Heart Attack 03/2021 [facility]. Surgical: - General surgery right shoulder ORIF [...] Health Reminders - Mammogram Needed satisfied 05/28/2024. [facility]04-26-2024 NoteHNO ID: [id number] Author: YANDEL DANIEL MD Service: ? Author Type: Physician Type: Progress Notes Filed: 09/28/2023 13:37 Note Text: Gail Almeida [id number] September 27, 2023 [facility] Note [...] by mouth every 12 hours as needed. ckomba-zyroqwmw-dafuqmo (ENZADYNE) 9,000-112,500- 112,500 unit capsule Take 1 [...] findings and plan of care. Yandel Daniel [facility]04-26-2024 Nurse Note* Fabienne Deleon OCCA - 09/27/2023 9:29 AM EDT Tobacco Use: .25 packs/day, for 40 years. Types: Cigarettes Was smoking cessation packet given? Patient Declined Was a referral initiated?Patient declined. [facility]04-26-2024 Nurse Note* Fabienne Deleon OCCA - 09/27/2023 9:29 AM EDT Tobacco Use: .25 packs/day, for 40 years. Types: Cigarettes Was smoking cessation packet given? Patient Declined Was a referral initiated?Patient declined. [facility]04-[facility] History of Present illness Narrative* Yandel Daniel MD - 09/27/2023 9:15 AM EDT Gail Almeida [id number] September 27, 2023 [facility] Note [...] by mouth every 12 hours as needed. xrezcg-lhzyyjnn-mcxdevu (ENZADYNE) 9,000-112,500- 112,500 unit capsule Take 1 [...] care. Yandel Daniel MD documented [facility]Gen[facility]04-02-2024 Miscellaneous Notes* Telephone Encounter - Radha Brice RN - 09/03/2023 7:59 AM EDT No return call for [facility]. Closing encounter. * Telephone Encounter - Radha Brice RN - 08/09/2023 4:27 PM EST Called [facility] Transferred to [facility]. No answer phone continued ringing no voicemail available. * Telephone Encounter - Nena Rodriguez - 08/09/2023 9:42 AM EST Person Calling: Margaux - TAWANNA at [facility] Reason for Call: patient is going to need refills on levothyroxine and calcium carbonate. She was unsure if we would fill that request or her pcp Margaux: [phone] Pharmacy Name and # : [facility] [place] [address] - [address] [facility] - [phone] [place] [address] [address] [facility] [address] Pt last seen: 06/28/2023 Nena Rodriguez documented in [facility] encounterGen[facility]03-19-2024 Discharge summary Author Reynaldo Kraft [facility] August 20, 2023 12:42pm Note Date/Time August 20, 2023 8:5 0am [facility] [address] [place], [place] [id number] Discharge Summary Signed Patient: Gail Almeida MR#: [id number] : 1955 Acct:[id number] Age/Sex: 67 / F Adm Date: 4 Loc: 1S Room: [address] [place] [address]: Joe Davis MD Copies to: [...] 2 times total 1 time here in [facility] and another time at a different hospital Past suicide attempts: Denies previous suicidal attempts Previous medications: Reports Seroquel, Kauka[place], Zyprexa, Cogentin Alcohol and Drug Use: Denies alcohol use. Denies street drugs. 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 [...] Instructions: Important Contact Information You can call [facility] at [phone] any time day or night if you have emergent questions or question regarding discharge instructions. If at any time you are feeling an increase inyour psychiatric symptoms, call your physician or behavioral healthcare provider. If any time you have thoughts of harming yourself or others contact one of the following: Call (available 24/12) Crisis Text Line (available 24/12) text 4HOPE to [phone] [facility] Hope Line (available 8 a.m. Midnight) call [phone] ([phone]) Regular Diet No Activity Restrictions Instructions: Schizoaffective Disorder (DC), [facility] DC Instructions [...] mg PO DAILY fluticasone propionate 50 mcg/actuation [place],Suspension 1 spray INTRANASAL BID Rx Instructions: inhale [...] tablet 10 mg PO QHS Follow Up: [facility] [Outside] - 09/10/23 8:40 am (A correctional counselor/case manager will call you on Saturday08/21/23 between 8:00am and 12:00pm. Psychiatry: Saturday09/10/23 at 8:40am with Dr. Galicia. ) Karla Clark APRN, [employer] [Referring] - (Contact your PCP with medical needs. ) Documented By: Reynaldo Kraft MD 08/20/23 0850 Signed By: <Electronically signed by Reynaldo Kraft MD> 08/20/23 1242 [facility] Work Phone: 1(612) 247-353503-18-2024 Progress note Author Reynaldo Kraft [facility] August 19, 2023 12:04pm Note Date/Time August 19, 2023 12: 04pm [facility] [address] [place], [place] [address] Psychiatry Progress Note Signed Patient: Gail Almeida MR#: [id number] : 1955 Acct:[id number] Age/Sex: 67 / F Adm Date: 4 Loc: Room: [address] [place] [address] Type : ADM IN Attending Dr: Joe [...] PO BID and 400 mg PO HS [place] 300 mg PO BID. Cipro 500mg PO BID Continue to monitor mental status Encourage group participation and medication compliance Risk benefits alternatives explained Documented By: Reynaldo Kraft MD 08/19/23 1203 Signed By: <Electronically signed by Reynaldo Kraft MD> 08/19/23 1208 [facility] Work Phone: 1(502) 813-408603-17-2024 Progress note Author Joe rodriguez [facility] August 18, 2023 9:29am Note Date/Time August 18, 2023 9:2 9am [facility] [address] [place], [place] [id number] Psychiatry Progress Note Signed Patient: Gail Almeida MR#: [id number] : 1955 Acct:[id number] Age/Sex: 67 / F Adm Date: 4 Loc: Room: [address] [place] [address] Type : ADM IN Attending Dr: Joe [...] PO BID and 400 mg PO HS [place] 300 mg PO BID. Obtain lithium level. [...] was provided. Documented By: Joe Davis MD 927 Signed By: <Electronically signed by Joe Davis MD> 08/18/23928 [facility] Work Phone: 1(968) 694-684203-16-2024 Progress note Author Joe rodriguez [facility] August 17, 2023 6:38am Note Date/Time August 17, 2023 6:3 9am [facility] [address] [place] [address] Psychiatry Progress Note Signed Patient: Gail Almeida MR#: [id number] : 1955 Acct:[id number] Age/Sex: 67 / F Adm Date: 4 Loc: Room: [address] [place] [address] Type : ADM IN Attending Dr: Joe [...] 28.6 L TSH 3rd Generation 9.75 H [place] 0.50 L Assessment/Plan Assessment/Plan (1) Schizoaffective disorder: Plan Patient denied any hallucinations this am. No SI/HI. Cogentin 0.5 mg PO BID Clonidine 0.1 mg PO Daily Zyprexa 5 mg PO Daily and 12.5 mg PO QHS Seroquel 12.5 mg PO BID and 400 mg PO HS [place] 300 mg PO BID. Obtain lithium level. [...] signed by Joe Davis MD> 08/17/23 0638 [facility] Work Phone: 1(539) 682-627303-15-2024 History and physical note Author Joe rodriguez [facility] August 16, 2023 12:20pm Note Date/Time August 16, 2023 11: 24am [facility] [address] [place] [address] Psychiatry H&P Signed Patient: Gail Almeida MR#: [id number] : 1955 Acct:[id number] Age/Sex: 67 / F Adm Date: 4 Loc: Room: [address] [place] [address] Type: ADM IN Attending Dr: Joe Davis [...] 2 times total 1 time here in [facility] and another time at a different hospital Past suicide attempts: Denies previous suicidal attempts Previous medications: Reports Seroquel, [place], Zyprexa, Cogentin Alcohol and Drug Use: Denies alcohol use. Denies street drugs. 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 Review of symptoms: Constitutional: Denies chills [...] SI, HI, hallucination Insight: Poor Judgment: Poor [facility] Medical History Localized swelling, mass and lump, [...] oral powder 17 g PO DAILY PRN Yztruaumpufz64/10/23 [History Confirmed 08/15/23] quetiapine 400 mg tablet,extended [...] 08/15/23] dextromethorphan-guaifenesin 30 mg-600 mg tablet extended [id number] hr (Mucus DM) 1 tab PO Q12HR [...] Appearance Clear Urine pH 7.0 Ur Specific [place] 1.005 Urine Protein Negative Urine Glucose (UA) Normal Urine Ketones Negative Urine Occult Blood Negative Urine Nitrite Negative Ur Leukocyte Esterase 3+ H Urine RBC None seen Urine WBC 3-4 [place] 0.50 L Assessment/Plan (1) Schizoaffective disorder: Plan [...] PO BID and 400 mg PO HS [place] 300 mg PO BID. Obtain lithium level. [...] signed by Joe Davis MD> 08/16/23 1220 [facility] Work Phone: 1([phone]) 341-410302-13-2024 History of Present illness Narrative* Dakota Mack [...] Visit: pending biopsy results documented in this encounterBarnes-Jewish HospitalRtuxjgnjdl78-70-5828 NoteHNO ID: [id number] Author: YANDEL DANIEL MD Service: ? Author Type: Physician Type: Progress Notes Filed: 06/28/2023 15:37 Note Text: [facility] Note CC: Post op of [...] by mouth every 12 hours as needed. btbzeb-mmsbxqkk-niswyzl (ENZADYNE) 9,000-112,500- 112,500 unit capsule Take 1 [...] Scribe Attestation: By signing my name below, Zora Latham, attest that this documentation has been prepared under the direction and in the presence of Yandel Daniel MD. Electronically Signed: Zora Mtzlata, June 28, 2023 1:53 PM June 28, 2023 I participated in t (more content not included)...[facility] 06-22-2023 NoteHNO ID: [id number] Author: IAN WITT MD Service: Otolaryngology Author Type: Resident Type: Progress Notes Filed: 06/22/2023 09:24 Note Text: [facility] - HEAD AND NECK SURGERY PROGRESS NOTE PAGE [phone] AFTER 1700 AND ON WEEKENDS Patient Name: [...] Head and Neck Surgery PGY 3 Pager: [phone] Service pager: [phone] (page after 5pm and on weekends) SUBJECTIVE: [...] Weight: Height: Ins AND Outs: Date 06/21/23 07 - 06/22/23 0659 06/22/23 07 - 06/23/23 0659 Shift 6103-7168 4528-1843 6104-3194 24 Hour Total 0076-8593 9407-8801 8512-6882 24 Hour Total INTAKE PO(mL/kg) 840(12.92) 1290(19.85) 740(11.38) 2870(44.15) 360(5.54) 360(5.54) PO 840 0003 804 7833 360 360 Shift Total(mL/kg) 840(12.92) 1290(19.85) 740(11.38) [...] Stage 2 chronic kidney disease Goiter [facility]A: [facility] NoteHNO ID: [id number] Author: CHRIS LIVINGSTON RN Service: Care Management Author Type: Registered Nurse Type: Care Mgt Progress Note Filed: 06/21/2023 15:12 Note Text: CARE MANAGEMENT PROGRESS NOTE SERVICE DATE: 06/21/2023 SERVICE TIME: 2:26 PM LOS: 0 days Medically cleared for discharge back to [facility]isted [facility] [place] [phone] ([phone]) CM spoke with [facility] no long distance transport today or this weekend due to the weather. CM spoke with nurse Parada [place] she will see if they can get transport and will call CM back. Addendum: 2:50 PM Prachi the nurse from [place] called back they have no transport either: secure message sent to team. Waiting for response. Addendum: 3:10 PM CM spoke with Prachi again stated they have their own van that will pick the patient up at 11:00 AM Thursday 06/22, the delivery driver/supervisor will call the CM when they arrive. SIGNATURE: Chris Livingston RN PATIENT NAME: Gail Almeida DATE: June 21, 2023 TIME: 2:26 PM PAGER/CONTACT #: N/[facility]01-19-2024 NoteHNO ID: [id number] Author: GEMA CARVALHO MD Service: Endocrinology Author Type: Fellow Type: Plan of Care Filed: 06/21/2023 14:11 Note Text: Paged primary team about the consult to endocrine. Per primary they are discharging patient and would follow up outpatient. Was asked to D/C consult per , ENT resident.[facility] 06-21-2023 NoteHNO ID: [id number] Author: JANSI GATES MD Service: Otolaryngology Author Type: Resident Type: Progress Notes Filed: 06/21/2023 10:11 Note Text: [facility] - HEAD AND NECK SURGERY PROGRESS NOTE PAGE [phone] AFTER 1700 AND ON WEEKENDS Patient Name: [...] incisions BID - Dispo: please transfer to [facility] Janis Gtaes, PGY-2, Otolaryngology Service Pager: [phone] Pager: [phone] June 19, 2023 9:13 AM For questions after 5 PM and on weekends, please page [phone]. SUBJECTIVE: No acute events overnight. Pain well-controlled with current regimen. Breathing well on RA. Tolerating diet. OBJECTIVE: Vitals: 06/20/23 2100 06/20/23 2121 06/21/23 0052 06/21/23 0451 BP: 127/58 107/55 105/62 Pulse: 74 74 83 77 Resp: Temp: 36.7 ?C (98.1 ?F) 36.2 ?C (97.2 ?F) 36 ?C (96.8 ?F) TempSrc: Oral Temporal Temporal SpO2: 95% 94% 93% 93% Weight: Height: Ins AND Outs: Date 06/20/23699 - 06/21/23 0659 06/21/23 07 - 06/22/23 0659 Shift 6036-5375 1470-4704 0974-7862 24 Hour Total 8107-7149 4523-1176 9684-0327 24 Hour Total INTAKE PO 720 0570 102 2463 480 480 PO 720 1677 034 5935 480 480 IV 100 100 100 300 Volume (mL) (ceFAZolin iv piggyback 2 g in D5W (iso-osmotic) 100 mL (ANCEF)) 100 100 100 300 Shift Total 820 8069 827 6757 480 480 OUTPUT Urine 1050 8728 182 4545 Void (ml) 1050 4783 341 0031 Urine Not Saved. 2 x 2 x 2 x 2 x Tubes 15 10 7.5 32.5 Drain/Tube Output (Drain/Tube 06/18/23 1449 [facility]) 15 10 7.5 [...] BID w MEALS famotidine (more content not included)...[facility]01-18-2024 NoteHNO ID: [id number] Author: JANIS GATES MD Service: Otolaryngology Author Type: Resident Type: Progress Notes Filed: 06/20/2023 07:09 Note Text: [facility] - HEAD AND NECK SURGERY PROGRESS NOTE PAGE [phone] AFTER 1700 AND ON WEEKENDS Patient Name: [...] output q8h - Dispo: please transfer to [facility] Janis Gates, PGY-2, Otolaryngology Service Pager: [phone] Pager: [phone] June 19, 2023 9:13 AM For questions after 5 PM and on weekends, please page [phone]. SUBJECTIVE: No acute events overnight. Pain well-controlled with current regimen. Breathing well on RA. Tolerating diet. OBJECTIVE: Vitals: 06/19/23 2031 06/19/23 2124 06/20/23 0046 06/20/23 0508 BP: 125/76 126/87 139/76 Pulse: 77 83 73 Resp: 16 16 16 16 Temp: 36.8 ?C (98.3 ?F) 36 ?C (96.8 ?F) 36 ?C (96.8 ?F) TempSrc: Oral Temporal Temporal SpO2: 95% 96% 95% 97% Weight: Height: Ins AND Outs: Date 06/19/23 0700 - 06/20/23 0659 06/20/23 0700 - 06/21/23 0659 Shift 7986-9455 9775-7622 1263-9926 24 Hour Total 0295-2953 9948-2745 7834-9779 24 Hour Total INTAKE PO 4320 226 593 7554 PO 4320 275 055 8623 IV 100 100 Volume (mL) (ceFAZolin iv piggyback 2 g in D5W (iso-osmotic) 100 mL (ANCEF)) 100 100 Shift Total 4320 294 511 8695 OUTPUT Urine 500 2817 680 8765 Void (ml) 500 0257 587 7639 Urine Not Saved. 2 x 2 x Tubes 50 27.5 17.5 95 Drain/Tube Output (Drain/Tube 06/18/23 1449 [facility]) 50 27.5 17.5 [...] Lozenge (CHLORASEPTIC) 1 Lozeng (more content not included)...[facility]01-17-2024 NoteHNO ID: [id number] Author: JANIS GATES MD Service: Otolaryngology Author Type: Resident Type: Progress Notes Filed: 06/19/2023 09:16 Note Text: [facility] - HEAD AND NECK SURGERY PROGRESS NOTE PAGE [phone] AFTER 1700 AND ON WEEKENDS Patient Name: [...] M81 Janis Gates, PGY-2, Otolaryngology Service Pager: [phone] Pager: [phone] June 19, 2023 9:13 AM For questions after 5 PM and on weekends, please page [phone]. SUBJECTIVE: No acute events overnight. Pain well-controlled with current regimen. Breathing well on RA. Tolerating diet. OBJECTIVE: Vitals: 06/18/23 2104 06/19/23 0108 06/19/23 0119 06/19/23 0519 BP: 155/79 157/71 143/75 Pulse: 82 65 73 Resp: 16 Temp: 36.7 ?C (98.1 ?F) 36.6 ?C (97.9 ?F) 36.3 ?C (97.4 ?F) TempSrc: Oral Temporal Oral SpO2: 96% 98% 98% Weight: Height: Ins AND Outs: Date 06/18/23 0700 - 06/19/23 0659 06/19/23 0700 - 06/20/23 0659 Shift 1542-2430 8561-8437 9786-8357 24 Hour Total 6569-2384 4210-8415 7138-7502 24 Hour Total INTAKE PO 120 490 610 360 360 PO 120 490 610 360 360 IV 1100 0387 826 3393 OR Crystalloid intake (mL) 1100 1100 Volume (mL) (ceFAZolin iv piggyback 2 g in D5W (iso-osmotic) 100 mL (ANCEF)) 100 100 Volume (mL) (ceFAZolin iv piggyback 2 g in D5W (iso-osmotic) 100 mL (ANCEF)) 50 100 150 Volume (mL) (lactated ringers iv infusion) 125 125 Volume (mL) (lactated ringers iv infusion) 0516 008 7025 Volume (mL) (NaCl 0.9% iv infusion) 468 500 968 Shift Total 1100 1963 1090 4153 360 360 OUTPUT Urine 872 704 5096 300 300 Void (ml) 370 994 0613 300 300 Urine Incontinence/Not Saved 1 x 1 x Urine Not Saved. 1 x 1 x Tubes 40 17.5 57.5 Drain/Tube Output (Drain/Tube 06/18/23 1449 [facility]) 40 17.5 57.5 [...] H PRN Or oxyCOD (more content not included)...[facility]01-17-2024 Note HNO ID: [id number] Author: JONATHAN VALENCIA RN Service: ? Author Type: Registered Nurse Type: Nursing Progress Note Filed: 06/19/2023 00:12 Note Text: Per Dr. Mendoza, draw PTH and ionized calcium together at 4 a.m.[facility]01-16-2024 NoteHNO ID: [id number] Author: JANETH VARGAS DO Service: ? Author [...] June 18, 2023 TIME: 12:58 PM CSN: [id number]01-16-2024 NoteHNO ID: [id number] Author: JANETH VARGAS DO Service: ? 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 Anesthesiologist: Janeth Vargas DO Resident: eDepak Hernandez MD Performed by: resident and anesthesiologist Indications and Patient Condition Indications for airway management: anesthesia Preoxygenated: yes anesthesia circuit Patient position: sniffing Method: asleep Final Airway Details Final airway type: endotracheal airway Final Endotracheal Airway: NIM tube Cuffed: yes Successful intubation technique: video laryngoscopy Devices used: Hernandez Endotracheal tube insertion site: oral Blade: Christiano [...] June 18, 2023 TIME: 12:45 PM CSN: [id number]12-28-[facility]23 NoteHNO ID: [id number] Author: Yandel Daniel MD Service: ? Author Type: Physician Type: Progress Notes Filed: 05/30/2023 2:42 PM Note Text: [facility] Note CC: Preoperative appointment HPI: [...] by mouth every 12 hours as needed. moddzu-wdnyqgse-duzjpbd (ENZADYNE) 9,000-112,500- 112,500 unit capsule Take 1 [...] total thyroidectomy as scheduled (more content not included)...[facility]12-28-2023 NoteHNO ID: [id number] Author: Alea Smith RT(R) Service: Radiology Author [...] and Intact, Site disposition Discontinued SIGNED BY: Alea Smith RT(R) May 30, 2023 10:19 [id number] Evaluation note Includes: Assessments for all patient encounters Findings Encounter Date [D48.5 - Neoplasm of uncerta in behavior of skin] skin neoplasm of uncertain behavior Medical Established Patient with Karla Clark UPPER INSPECTOR 05/22/2023 Last Documented On 3 1:30PM ; [facility] [Z68.24 - Body mass index [B ME] 24.0-24.9, adult] assessment of body mass index Medical Established Patient with Karla Clark UPPER INSPECTOR 05/22/2023 Last Documented On 3 1:30PM ; [facility] Assessment of tobacco use Medical Establ ished Patient with Karla Clark UPPER INSPECTOR 05/22/2023 Last Documented On 3 1:30PM ; [facility] [R30.0 - Dysuria] Dysuria Chart Update with Gary Clark [facility] 03/21/2023 Last Documented On 3 11:27AM ; [facility] [Z12.39 - Encounter for othe r screening for malignant neoplasm of breast] visit for: screening for malignant breast neoplasm Medical Established Patient with Aaron Whitaker UPPER INSPECTOR 02/28/2023 Last Documented On 3 9:51AM ; [facility] [Z68.24 - Body mass index [B ME] 24.0-24.9, adult] assessment of body mass index Medical Established Patient with Aaron Whitaker UPPER INSPECTOR 02/28/2023 Last Documented On 3 9:51AM ; [facility] Assessment of tobacco use Medical Establ ished Patient with Lina Penix UPPER INSPECTOR 02/28/2023 Last Documented On 3 9:51AM ; [facility] Chronic obstructive pulmonary disease Me dical Established Patient with Lina Penix UPPER INSPECTOR 02/28/2023 Last Documented On 3 9:51AM ; [facility] [J20.9 - Acute bronchitis, unspecified] acute bronchitis Medical Established Patient with Karla Clark UPPER INSPECTOR 11/19/2022 Last Documented On 3 10:15AM ; [facility] [M79.621 - Pain in right upp er arm] pain in upper arm Medical Established Patient with Karla Clark UPPER INSPECTOR 11/19/2022 Last Documented On 3 10:15AM ; [facility] [Z68.23 - Body mass index [B ME] 23.0-23.9, adult] assessment of body mass index Medical Established Patient with Karla Clark UPPER INSPECTOR 11/19/2022 Last Documented On 3 10:15AM ; [facility] [M79.601 - Pain in right arm ] pain in right arm Medical Established Patient with Karla Clark UPPER INSPECTOR 09/18/2022 Last Documented On 3 2:33PM ; [facility] [Z68.24 - Body mass index [B ME] 24.0-24.9, adult] assessment of body mass index Medical Established Patient with Karla Clark UPPER INSPECTOR 09/18/2022 Last Documented On 3 2:33PM ; [facility] Assessment of tobacco use Medical Establ ished Patient with Karla Clark UPPER INSPECTOR 09/18/2022 Last Documented On 3 2:33PM ; [facility] [M25.569 - Pain in unspecifi ed knee] arthralgia of knee / patella / tibia / fibula Medical Established Patient with Karla Clark UPPER INSPECTOR 08/27/2022 Last Documented On 3 9:20AM ; [facility] [Z68.24 - Body mass index [B ME] 24.0-24.9, adult] assessment of body mass index Medical Established Patient with Karla Clark UPPER INSPECTOR 08/27/2022 Last Documented On 3 9:20AM ; [facility] Intervention and counseling on cessation of tobacco use, 3-10 minutes Discussed medication and nicotine replacement for tobacco cessation Medical Established Patient with Karla Clark UPPER INSPECTOR 08/27/2022 Last Documented On 3 9:20AM ; [facility] Nicotine dependence Medical Established Patient with Karla Clark CNP 08/27/2022 Last Documented On 3 9:20AM ; [facility] Visit for routine adult H&P without abnormal findings Medical Established Patient with Karla Clark UPPER INSPECTOR 08/27/2022 Last Documented On 3 9:20AM ; [facility] [H92.02 - Otalgia, left ear] earache Med ical Established Patient with Karla Clark UPPER INSPECTOR 06/18/2022 Last Documented On 3 12:11PM ; [facility] [M79.604 - Pain in right leg ] pain in right leg Medical Established Patient with Karla Clark UPPER INSPECTOR 06/18/2022 Last Documented On 3 12:11PM ; [facility] [Z68.24 - Body mass index [B ME] 24.0-24.9, adult] assessment of body mass index Medical Established Patient with Karla Clark UPPER INSPECTOR 06/18/2022 Last Documented On 3 12:11PM ; [facility] Assessment of tobacco use Medical Establ ished Patient with Karla Clark UPPER INSPECTOR 06/18/2022 Last Documented On 3 12:11PM ; [facility] Diabetes Risk Test Score was four score 06/18/2022 Medical Established Patient with Karla Clark UPPER INSPECTOR 06/18/2022 Last Documented On 3 12:11PM ; [facility] Schizoaffective disorder Established Patient with Yin Feliz LPCC-S 03/20/2022 Last Documented On 2 12:13AM ; [facility] No cough Medical Established Patient with Karla Clark UPPER INSPECTOR 12/20/2021 Last Documented On 2 3:12PM ; [facility] Visit for: screening for hum an immunodeficiency virus Medical Established Patient with Karla Clark UPPER INSPECTOR 12/20/2021 Last Documented On 2 3:12PM ; [facility] Z68.24 - Body mass index [BM I] 24.0-24.9, adult Medical Established Patient with Karla Clark UPPER INSPECTOR 12/20/2021 Last Documented On 2 3:12PM ; [facility] Bipolar disorder NOS BH Established Patient with Yin Feliz LPCC-S 11/03/2021 Last Documented On 2 7:00PM ; [facility] Bipolar schizoaffective disorder BH Esta blished Patient with Yin Boswells LPCC-S 11/03/2021 Last Documented On 2 7:00PM ; [facility] PLAN Medical Established Patient with Don Pino MD 11/03/2021 Last Documented On 2 10:40AM ; [facility] Abnormal electrocardiogram Medical Estab lished Patient with Don Pino MD 11/03/2021 Last Documented On 2 10:40AM ; [facility] Z68.24 - Body mass index [BM I] 24.0-24.9, adult Medical Established Patient with Don Pino MD 11/03/2021 Last Documented On 2 10:40AM ; [facility] Cough Medical Established Patient with Karla Amber UPPER INSPECTOR 07/28/2021 Last Documented On 2 2:01PM ; [facility] Intervention and counseling on cessation of tobacco use, 3-10 minutes Discussed medication and nicotine replacement for tobacco cessation Medical Established Patient with Karla Amber UPPER INSPECTOR 07/28/2021 Last Documented On 2 2:01PM ; [facility] Nicotine dependence Medical Established Patient with Karla Amber UPPER INSPECTOR 07/28/2021 Last Documented On 2 2:01PM ; [facility] Z68.24 - Body mass index [BM I] 24.0-24.9, adult Medical Established Patient with Karla Amber UPPER INSPECTOR 07/28/2021 Last Documented On 2 2:01PM ; [facility] Assess Colon screening Medical Established Patie nt with Karla Amber UPPER INSPECTOR 05/08/2021 Last Documented On 1 10:59AM ; [facility] Diabetes Risk Test Score was four score 05/08/2021 Medical Established Patient with Karla Amber UPPER INSPECTOR 05/08/2021 Last Documented On 1 10:59AM ; [facility] Routine adult history and ph ysical (18-64 yrs) without abnormal findings Medical Established Patient with Karla Amber UPPER INSPECTOR 05/08/2021 Last Documented On 1 10:59AM ; [facility] Z68.24 - Body mass index [BM I] 24.0-24.9, adult Medical Established Patient with Karla Amber UPPER INSPECTOR 05/08/2021 Last Documented On 1 10:59AM ; [facility] Z68.24 - Body mass index [BM I] 24.0-24.9, adult Medical Established Patient with Karla Amber UPPER INSPECTOR 06/17/2020 Last Documented On 1 10:30AM ; [facility] Overweight Medical Established Patient with Karla Amber UPPER INSPECTOR 06/06/2020 Last Documented On 1 2:06PM ; [facility] Z68.25 - Body mass index [BM I] 25.0-25.9, adult Medical Established Patient with Karla Amber UPPER INSPECTOR 06/06/2020 Last Documented On 1 2:06PM ; [facility] Antiasthmatics [facility] with Karla Amber UPPER INSPECTOR 05/06/2020 Last Documented On 0 7:27PM ; [facility] Assessment of tobacco use [facility] with Karla Amber UPPER INSPECTOR 05/06/2020 Last Documented On 0 7:27PM ; [facility] Body mass index [facility] with Karla Amber UPPER INSPECTOR 05/06/2020 Last Documented On 0 7:27PM ; [facility] Chronic obstructive pulmonary disease CP S [facility] with Karla Amber UPPER INSPECTOR 05/06/2020 Last Documented On 0 7:27PM ; [facility] Overweight [facility] with Karla Amber UPPER INSPECTOR 05/06/2020 Last Documented On 0 7:27PM ; [facility] Z11.4 - Encounter for screen ing for human immunodeficiency virus [HIV] CPS [facility] with Karla Amber UPPER INSPECTOR 05/06/2020 Last Documented On 0 7:27PM ; [facility] Diabetes Risk Test Score was three score 03/31/2020 Medical Established Patient with Karla Amber UPPER INSPECTOR 03/31/2020 Last Documented On 0 3:22PM ; [facility] Overweight Medical Established Patient with Karla Clark UPPER INSPECTOR 03/31/2020 Last Documented On 0 3:22PM ; [facility] Z68.25 - Body mass index [BM I] 25.0-25.9, adult Medical Established Patient with Karla Clark UPPER INSPECTOR 03/31/2020 Last Documented On 0 3:22PM ; [facility] Encounter for Immunization Nurse Visit with Gary Clark UPPER INSPECTOR 03/14/2020 Last Documented On 0 5:11PM ; [facility] Body mass index Medical Established Patient with Karla Clark UPPER INSPECTOR 02/26/2020 Last Documented On 0 1:18PM ; [facility] Overweight Medical Established Patient with Karla Floresen UPPER INSPECTOR 02/26/2020 Last Documented On 0 1:18PM ; [facility] Overweight Medical Established Patient with Karla Clark UPPER INSPECTOR 07/23/2019 Last Documented On 0 2:33PM ; [facility] Z68.27 - Body mass index (BM I) 27.0-27.9, adult Medical Established Patient with Karla Clark UPPER INSPECTOR 07/23/2019 Last Documented On 0 2:33PM ; [facility] Occasional asthma CPS- Asthma Clinic- F/U with A french Clark UPPER INSPECTOR 06/05/2019 Last Documented On 0 7:04PM ; [facility] Overweight CPS- Asthma Clinic- F/U with Alta Clark UPPER INSPECTOR 06/05/2019 Last Documented On 0 7:04PM ; [facility] Z68.27 - Body mass index (BM I) 27.0-27.9 adult CPS- Asthma Clinic- F/U with Karla Clark UPPER INSPECTOR 06/05/2019 Last Documented On 0 7:04PM ; [facility] Occasional asthma CPS Med Review with Karla Flores en UPPER INSPECTOR 04/23/2019 Last Documented On 9 4:01PM ; [facility] Overweight CPS Med Review with Karla Clark UPPER INSPECTOR 04/23/2019 Last Documented On 9 4:01PM ; [facility] Z68.27 - Body mass index (BM I) 27.0-27.9 adult CPS Med Review with Karlajulius Clark UPPER INSPECTOR 04/23/2019 Last Documented On 9 4:01PM ; [facility] Acute pharyngitis Medical Established Patient wi th Brandy Kelley UPPER INSPECTOR 04/15/2019 Last Documented On 9 12:31PM ; [facility] Asthmatic bronchitis with ac cahto exacerbation Medical Established Patient with Brandy Warren UPPER INSPECTOR 04/15/2019 Last Documented On 9 12:31PM ; [facility] Fagerstrom Score was two Medical Established Pat ient with Brandy Serranoer UPPER INSPECTOR 04/15/2019 Last Documented On 9 12:31PM ; [facility] PHQ-9: total score was three 04/15/2019 Medical Established Patient with Brandy Serranoer UPPER INSPECTOR 04/15/2019 Last Documented On 9 12:31PM ; [facility] Body mass index Medical Established Patient with Karlajulius Clark UPPER INSPECTOR 03/05/2019 Last Documented On 9 10:27AM ; [facility] Diabetes Risk Test Score was three score Medical Established Patient with Karla Amber UPPER INSPECTOR 03/05/2019 Last Documented On 9 10:27AM ; [facility] Overweight Medical Established Patient with Karla Amber UPPER INSPECTOR 03/05/2019 Last Documented On 9 10:27AM ; [facility] Z68.28 - Body mass index (BM I) 28.0-28.9, adult Medical Established Patient with Karla Amber UPPER INSPECTOR 12/22/2018 Last Documented On 9 10:32AM ; [facility] Assess routine adult history and physical (18 - 64 yrs) Medical Established Patient with Karla Amber UPPER INSPECTOR 11/06/2018 Last Documented On 9 2:26PM ; [facility] Overweight Medical Established Patient with Karla Amber UPPER INSPECTOR 11/06/2018 Last Documented On 9 2:26PM ; [facility] Z68.28 - Body mass index (BM I) 28.0-28.9, adult Medical Established Patient with Karla Amber UPPER INSPECTOR 11/06/2018 Last Documented On 9 2:26PM ; [facility] Assess dysphagia Medical Established Patient wit h Karla Clark UPPER INSPECTOR 09/11/2018 Last Documented On 9 10:53AM ; [facility] Assess routine adult history and physical (18 - 64 yrs) Medical Established Patient with Karla Amber UPPER INSPECTOR 09/11/2018 Last Documented On 9 10:53AM ; [facility] Assess primary insomnia with sleep apnea Medical Established Patient with Karla Amber UPPER INSPECTOR 09/04/2018 Last Documented On 9 2:23PM ; [facility] Assess routine adult history and physical (18 - 64 yrs) Medical Established Patient with Karla Amber UPPER INSPECTOR 09/04/2018 Last Documented On 9 2:23PM ; [facility] Overweight Medical Established Patient with Karla Amber UPPER INSPECTOR 09/04/2018 Last Documented On 9 2:23PM ; [facility] Z68.29 - Body mass index (BM I) 29.0-29.9, adult Medical Established Patient with Karla Clark UPPER INSPECTOR 09/04/2018 Last Documented On 9 2:23PM ; [facility] Assess vaginal candidiasis Medical Estab lished Patient with Karla Amber UPPER INSPECTOR 07/31/2018 Last Documented On 9 2:12PM ; [facility] Work Phone: 1(124) 259-941012-20-2023 History general Narrative - Reported Includes: Medical History in patient's chart Description Last Updated No previous hospitalizations 05/22/2023 Last Documented On 3 1:30PM ; [facility] 1 previous live (s) 02/28/2023 Last Documented On 3 9:51AM ; [facility] Previously 1 time(s) 02/28/2023 Last Documented On 3 9:51AM ; [facility] Currently nursing 11/03/2021 Last Documented On 2 7:00PM ; [facility] status unknown for sexually tra nsmitted infection 11/03/2021 Last Documented On 2 7:00PM ; [facility] 11/03/2021 Last Documented On 2 7:00PM ; [facility] Not planning to have a baby in the next 12 months 11/03/2021 Last Documented On 2 7:00PM ; [facility] Heart Attack 03/2021 [facility] 1 07/09/2020 Last Documented On 1 10:59AM ; [facility] A recent immunization for flu 05/06/2020 Last Documented On 0 7:27PM ; [facility] Patient gave verbal consent for teleheal th 08/31/2019 Last Documented On 0 9:21AM ; [facility] History of abnormal electrocardiogram Last Documented On 9 2:12PM ; [facility] History of asthma 07/31/2018 Last Documented On 9 2:12PM ; [facility] History of cardiovascular disorder 07/31 Last Documented On 9 2:12PM ; [facility] History of respiratory disorder 07/31/19 19 Last Documented On 9 2:12PM ; [facility] History of bipolar disorder NOS 07/31/19 19 Last Documented On 9 2:12PM ; [facility] History of depression 07/31/2018 Last Documented On 9 2:12PM ; [facility] History of psychiatric disorders 019 Last Documented On 9 2:12PM ; [facility] Work Phone: 1(526) 579-767012-20-2023 History general Narrative - Reported Includes: Medical History in patient's chart Description Last Updated No previous hospitalizations 05/22/2023 Last Documented On 3 1:30PM ; [facility] 1 previous live (s) 02/28/2023 Last Documented On 3 9:51AM ; [facility] Previously 1 time(s) 02/28/2023 Last Documented On 3 9:51AM ; [facility] Currently nursing 11/03/2021 Last Documented On 2 7:00PM ; [facility] status unknown for sexually tra nsmitted infection 11/03/2021 Last Documented On 2 7:00PM ; [facility] 11/03/2021 Last Documented On 2 7:00PM ; [facility] Not planning to have a baby in the next 12 months 11/03/2021 Last Documented On 2 7:00PM ; [facility] Heart Attack 03/2021 [facility] 1 07/09/2020 Last Documented On 1 10:59AM ; [facility] A recent immunization for flu 05/06/2020 Last Documented On 0 7:27PM ; [facility] Patient gave verbal consent for teleheal th 08/31/2019 Last Documented On 0 9:21AM ; [facility] History of abnormal electrocardiogram Last Documented On 9 2:12PM ; [facility] History of asthma 07/31/2018 Last Documented On 9 2:12PM ; [facility] History of cardiovascular disorder 07/31 Last Documented On 9 2:12PM ; [facility] History of respiratory disorder 07/31/19 19 Last Documented On 9 2:12PM ; [facility] History of bipolar disorder NOS 07/31/19 19 Last Documented On 9 2:12PM ; [facility] History of depression 07/31/2018 Last Documented On 9 2:12PM ; [facility] History of psychiatric disorders 019 Last Documented On 9 2:12PM ; [facility] Work Phone: 1(147) 275-982612-20-2023 History general Narrative - Reported Includes: Medical History in patient's chart Description Last Updated No previous hospitalizations 05/22/2023 Last Documented On 3 1:30PM ; [facility] 1 previous live (s) 02/28/2023 Last Documented On 3 9:51AM ; [facility] Previously 1 time(s) 02/28/2023 Last Documented On 3 9:51AM ; [facility] Currently nursing 11/03/2021 Last Documented On 2 7:00PM ; [facility] status unknown for sexually tra nsmitted infection 11/03/2021 Last Documented On 2 7:00PM ; [facility] 11/03/2021 Last Documented On 2 7:00PM ; [facility] Not planning to have a baby in the next 12 months 11/03/2021 Last Documented On 2 7:00PM ; [facility] Heart Attack 03/2021 [facility] 1 07/09/2020 Last Documented On 1 10:59AM ; [facility] A recent immunization for flu 05/06/2020 Last Documented On 0 7:27PM ; [facility] Patient gave verbal consent for teleheal th 08/31/2019 Last Documented On 0 9:21AM ; [facility] History of abnormal electrocardiogram Last Documented On 9 2:12PM ; [facility] History of asthma 07/31/2018 Last Documented On 9 2:12PM ; [facility] History of cardiovascular disorder 07/31 Last Documented On 9 2:12PM ; [facility] History of respiratory disorder 07/31/19 19 Last Documented On 9 2:12PM ; [facility] History of bipolar disorder NOS 07/31/19 19 Last Documented On 9 2:12PM ; [facility] History of depression 07/31/2018 Last Documented On 9 2:12PM ; [facility] History of psychiatric disorders 019 Last Documented On 9 2:12PM ; [facility] Work Phone: 1(618) 214-292012-20-2023 History general Narrative - Reported Includes: Medical History in patient's chart Description Last Updated No previous hospitalizations 05/22/2023 Last Documented On 3 1:30PM ; [facility] 1 previous live (s) 02/28/2023 Last Documented On 3 9:51AM ; [facility] Previously 1 time(s) 02/28/2023 Last Documented On 3 9:51AM ; [facility] Currently nursing 11/03/2021 Last Documented On 2 7:00PM ; [facility] status unknown for sexually tra nsmitted infection 11/03/2021 Last Documented On 2 7:00PM ; [facility] 11/03/2021 Last Documented On 2 7:00PM ; [facility] Not planning to have a baby in the next 12 months 11/03/2021 Last Documented On 2 7:00PM ; [facility] Heart Attack 03/2021 [facility] 1 07/09/2020 Last Documented On 1 10:59AM ; [facility] A recent immunization for flu 05/06/2020 Last Documented On 0 7:27PM ; [facility] Patient gave verbal consent for teleheal th 08/31/2019 Last Documented On 0 9:21AM ; [facility] History of abnormal electrocardiogram Last Documented On 9 2:12PM ; [facility] History of asthma 07/31/2018 Last Documented On 9 2:12PM ; [facility] History of cardiovascular disorder 07/31 Last Documented On 9 2:12PM ; [facility] History of respiratory disorder 07/31/19 19 Last Documented On 9 2:12PM ; [facility] History of bipolar disorder NOS 07/31/19 19 Last Documented On 9 2:12PM ; [facility] History of depression 07/31/2018 Last Documented On 9 2:12PM ; [facility] History of psychiatric disorders 019 Last Documented On 9 2:12PM ; [facility] Work Phone: 1(115) 778-947812-20-2023 Progress note* Progress note Date Encounter Last Documented by 05/22/2023 Medical Established Patient Last documented on 05/22/2023; 1:30 PM, Karla Clark CNP; [facility] Active Problems & Conditions - J20.9 - [...] list reviewed Presents s/p pneumonia stay at [place] . she having neck mass removed at [facility] in j[facility] Current Medication - Acetaminophen [...] tablet by mouth twice a day DR GALICIA, 0 days, 0 refills - Benztropine Mesylate 0.5 MG Oral Tablet Take 1 tablet by mouth twice a day DR GALICIA, 0 days, 0 refills - Calcium 600+D [...] EVERY DAY, 30 days, 11 refills - [place] Carbonate 150 MG Oral Capsule Capsule, conventional [...] Bipolar disorder NOS Depression Heart Attack 03/2021 [facility]. Surgical: - General surgery right shoulder ORIF [...] BP-Sitting R138/89 mmHg BP Cuff SizeLarge Pulse Rate-Ibthzjc78 bpm Dqfqlb67 in Ajfuzj742 lbs 9.6 oz Body Mass Index24.8 kg/m2 Body Surface Area1.7 m2 Oxygen Pzbxxktjsi03 % Vital Signs: - Systolic blood pressure [...] 0 pt : Not at all. Health [facility]11-09-2023 NoteHNO ID: [id number] Author: Yandel Daniel MD Service: ? Author [...] details please see patient questionnaire scanned into [employer]. History: No past medical history on file. [...] refer to the patient questionnaire scanned into [employer]. Physical Exam: Vitals - There were no [...] will involve endocrinology for (more content not included)...[facility]10-26-2023 Discharge summary Author Joe rodriguez [facility] March 28, 2023 1:30pm Note Date/Time March 28, 2023 1 :30pm [facility] [address] [place] [address] Discharge Summary Signed Patient: Gail Almeida MR#: [id number] : 1955 Acct:[id number] Age/Sex: 67 / F Adm Date: 3 Loc: Room: [address] [place] [address]: Joe Davis MD Copies to: [...] disruptive behavior at her assisted living facility, [facility]. Patient was previously admitted earlierthis month due to a medication miscommunication regarding her Seroquel in which she stopped taking the medication and appeared to be in a manic episode. Cardiology reports indicate her QTc is not prolonged and Seroquel could be continued safely. She was scheduled to receive her Risperdal Consta 25 mg/2ml on03/05/23 but the MAR from [facility] did not indicate whether she received [...] Plan for next Risperdal Consta [facility]23 then continue Q2W. Physical exam: [...] No Activity Restriction Comment: Assisted Living- [facility] Diet: Regular Additional Instructions: Important Contact Information You can call [facility] Inpatient Behavioral Health at [phone] any time day or night if you have emergent questions or question regarding discharge instructions. If at any time you are feeling an increase inyour psychiatric symptoms, call your physician or behavioral healthcare provider. If any time you have thoughts of harming yourself or others contact one of the following: Call (available 24/12) Crisis Text Line (available 24/12) text 4HOPE to [phone] [facility] Hope Line (available 8 a.m. Midnight) call [phone] ([phone]) Next Risperidal Consta injection Due 04/02/23 Instructions: Schizoaffective Disorder (DC), [facility] Behavioral Health DC Instructions [...] cap PO DAILY fluticasone propionate 50 mcg/actuation [place],Suspension 1 spray INTRANASAL BID Rx Instructions: inhale [...] PO Q12H PRN (Reason: Congestion) Follow Up: [facility] [Other] (Long Acting Injetion Risperdal Consta Due 04/02/23) [facility] [place] [Outside] - 04/02/23 12:15 pm (Case Management: A case management social worker will call you tomorrow, 03/29/23 between 8:00am and 5:00pm. Psychiatrist: Saturday04/02/23 @ 12:15pm with Dr. Galicia) Karla Clark, MEMBERSHIP COUNSELOR, SUPERVISOR [employer] [Referring] - Documented By: Joe Davis MD 3 1042 Signed By: <Electronically signed by Joe Davis MD> 03/28/23 1330 [facility] Work Phone: 1(767) 517-715110-26-2023 Hospital Discharge instructions Additional Instructions Important Contact Information You can call [facility]patient [facility] at [phone] any time day or night if you have emergent questions or question regarding discharge instructions. If at any time you are feeling an increase in your psychiatric symptoms, call your physician or behavioral healthcare provider. If any time you have thoughts of harming yourself or others contact one of the following: Call 98-8 (available 24/12) Crisis Text Line (available 24/12) text 4HOPE to [phone] [facility] Hope Line (available 8 a.m. Midnight) call [phone] ([phone]) Next Risperidal Consta injection Due 04/02/23[facility] Work Phone: 1(518) 269-639710-25-2023 Progress note Author Joe rodriguez [facility] March 27, 2023 11:29am Note Date/Time March 27, 2023 1 1:29am [facility] [address] [place] [address] Psychiatry Progress Note Signed Patient: Gail Almeida MR#: [id number] : 1955 Acct:[id number] Age/Sex: 67 / F Adm Date: 3 Loc: 1S Room: [address] [place] [address] Type : ADM INOo Attending Dr: Joe [...] vomiting, unspecified Status: Acute Plan Admit to and [...] <Electronically signed by Joe Davis MD> 03/27/23 9041 [facility] Work Phone: 1(871) 373-127010-25-2023 History and physical note Author Joe rodriguez [facility] March 27, 2023 9:05am Note Date/Time March 27, 2023 9 :05am [facility] [address] [place] [address] Psychiatry H&P Signed Patient: Gail Almeida MR#: [id number] : 1955 Acct:[id number] Age/Sex: 67 / F Adm Date: 3 Loc: 1S Room: [address] [place] [address] Type: ADM INOo Attending Dr: Joe Davis [...] homicidality and suicidality Insight: fair Judgment: fair [facility] Medical History (Updated 03/26/23 @ 18:06 by [...] oral powder 17 g PO DAILY PRN Enyqmzdtgnbd54/10/23 [History Confirmed 03/26/23] quetiapine 400 mg tablet,extended [...] 03/26/23] dextromethorphan-guaifenesin 30 mg-600 mg tablet extended kwypxth14 hr (Mucus DM) 1 tab PO Q12H [...] signed by Joe Davis MD> 03/27/23 0905 [facility] Work Phone: 1(639) 376-849010-24-2023 Consult note Author Jose Huang [facility] March 26, 2023 9:29pm Note Date/Time March 26, 2023 5 :27pm [facility] [address] [place] [address] Hospitalist Consult Note Signed Patient: Gail Almeida MR#: [id number] : 1955 Acct:[id number] Age/Sex: 67 / F Adm Date: 3 Loc: 1S Room: [address] [place] [address] Type: ADM IN Attending Dr: Joe Davis [...] facility with mental health concerns. Transferred to [facility] for inpatient psychiatric admission. Hospitalist team is [...] ago and was seen by this provider October 11, was treated with fosfomycin for abnormal urinalysis [...] negative unless noted below or in HPI [facility] Medical History (Updated 03/26/23 @ 18:06 by [...] oral powder 17 g PO DAILY PRN Fqgksmpqychi27/10/23 [History Confirmed 03/26/23] quetiapine 400 mg tablet,extended [...] 03/26/23] dextromethorphan-guaifenesin 30 mg-600 mg tablet extended oenfkoz19 hr (Mucus DM) 1 tab PO Q12H [...] 100 Mg Capsule PO 03/25/24 21:59 HS [facility] Famotidine 20 mg 03/26/23 09:00 03/26/23 08:22 Famotidine 20 Mg Tablet PO 03/25/24 08:59 20 mg BID JOANNA Administration Fluticasone Propionate 1 spray 03/26/23 09:00 03/26/23 08:22 Fluticasone Propionate [place] 120 [place]/16 Gm Bottle INTRANASAL 03/25/24 08:59 1 spray [...] 03/25/24 08:59 1 cap DAILY JOANNA Administration [place] Carbonate 150 mg 03/26/23 09:00 03/26/23 08:21 [place] Carbonate 300 Mg Tablet PO 03/25/24 08:59 150 mg BID JOANNA Administration Loratadine 10 mg 03/26/23 09:00 03/26/23 08:21 Loratadine 10 Mg Tablet PO 03/25/24 08:59 10 mg DAILY JOANNA Administration Magnesium Hydroxide 30 ml 03/26/23 01:03 Magnesium Hydroxide Susp 30 Ml Udc PO 03/25/24 01:02 Q6H PRN Constipation Meloxicam 15 mg 03/26/23 22:00 Meloxicam *Nf* 7.5 Mg Tablet PO 03/25/24 21:59 [facility] Olanzapine 5 mg 03/26/23 01:03 Olanzapine 5 [...] Er.24hr 200 Mg Tab.Er.24h PO 03/25/24 21:59 [facility] Sterile Water 2.1 ml 03/26/23 01:03 Water For Injection,Sterile 10 Ml Vial INJECTION 03/25/24 01:02 PRN PRN To dilute OLANZapine (ZyPREXA) Topiramate 25 mg 03/26/23 22:00 Topiramate 25 Mg Tablet PO 03/25/24 21:59 QHS [facility] Exam Physical Exam Vital Signs: Temp Pulse [...] Results - last 72 hr 03/26/23 07:30: [place] 0.20 L 03/26/23 07:30: Triglycerides 86, Cholesterol [...] By: <Electronically signed by RODNEY Pryor> 03/26/23 182 <Electronically signed by Jose Huang DO> 03/26/232128 [facility] Work Phone: 1(855) 378-495310-24-2023 Consult note Author Mariana Pryor [facility] March 26, 2023 5:27pm Note Date/Time March 26, 2023 3 :48pm [facility] [address] [place] [address] Hospitalist Consult Note Signed with Addenda Patient: Gail Almeida MR#: [id number] : 1955 Acct:[id number] Age/Sex: 67 / F Adm Date: 3 Loc: Room: [address] [place] [address] Type: ADM IN Attending Dr: Joe Davis MD Copies to: NON STAFF MD Mariana Vides APRN~ ADDENDUM1 disregard signed without completion Addendum Documented By: RODNEY Pryor 03/26/231725 Addendum Signed By: <Electronically signed by RODNEY Pryor> 03/26/231725 HPI DATE OF CONSULTATION: 03/26/23 REQUESTING PROVIDER: Joe Davis [facility] Medical History (Updated 03/26/23 @ 01:23 by [...] oral powder 17 g PO DAILY PRN Fioktpapfyhn27/10/23 [History Confirmed 03/26/23] quetiapine 400 mg tablet,extended [...] 03/26/23] dextromethorphan-guaifenesin 30 mg-600 mg tablet extended qepbwai15 hr (Mucus DM) 1 tab PO Q12H [...] spray 03/26/23 09:00 03/26/23 08:22 Fluticasone Propionate [place] 120 [place]/16 Gm Bottle INTRANASAL 03/25/24 08:59 1 spray [...] 03/25/24 08:59 1 cap DAILY JOANNA Administration [place] Carbonate 150 mg 03/26/23 09:00 03/26/23 08:21 [place] Carbonate 300 Mg Tablet PO 03/25/24 08:59 [...] Er.24hr 200 Mg Tab.Er.24h PO 03/25/24 21:59 [facility] Sterile Water 2.1 ml 03/26/23 01:03 Water For Injection,Sterile 10 Ml Vial INJECTION 03/25/24 01:02 PRN PRN To dilute OLANZapine (ZyPREXA) Topiramate 25 mg 03/26/23 22:00 Topiramate 25 Mg Tablet PO 03/25/24 21:59 [facility] Exam Physical Exam Vital Signs: Temp Pulse Resp BP Pulse Ox O2 Del Method 97.5 F L 103 H 17 137/78 97 Room Air 03/26/23 15:30 03/26/23 15:30 03/26/23 15:30 03/26/23 15:30 03/26/23 15:30 03/26/23 15:30 Results Lab Results Labs: Laboratory Results - last 72 hr 03/26/23 07:30: [place] 0.20 L 03/26/23 07:30: Triglycerides 86, Cholesterol 165, LDL Cholesterol, Calc 95, VLDL Cholesterol 17, HDL Cholesterol 53, Cholesterol/HDL Ratio 3.1, 25-OH Vitamin D Total 34.5, Free T4 0.74, TSH 3rd Generation 0.42 L Documented By: Mariana Pryor APRN 03/04 09/23 1548 Signed By: <Electronically signed by RODNEY Pryor> 03/26/23 1725 [facility] Work Phone: 1(535) 966-985010-19-2023 Progress note* Progress note Date Encounter Last Documented by 03/21/2023 Chart Update Last documented on 03/21/2023; 11:27 AM, Karla Clark CNP; [facility] Active Problems & Conditions - J20.9 [...] tablet by mouth twice a day DR GALICIA, 0 days, 0 refills - Benzonatate 200 MG Oral Capsule 1 tab po TID as needed, 30 days, 1 refills - Benztropine Mesylate 0.5 MG Oral Tablet Take 1 tablet by mouth twice a day DR GALICIA, 0 days, 0 refills - Calcium 600+D [...] arm pain, 5 days, 0 refills - [place] Carbonate 150 MG Oral Capsule one capsule [...] Bipolar disorder NOS Depression Heart Attack 03/2021 [facility]. Surgical: - General surgery right shoulder ORIF [...] EndCited Advance Directives - Advance Care Planning [facility] [facility] Instructions Includes: Instructions for all patient encounters Instructions to patient Intervention and counseling on cessation of tobacco use, 3-10 minutes Discussed medication and nicotine replacement for tobacco cessation Last Documented On 3 8:54AM ; [facility] Intervention and counseling on cessation of tobacco use, 3-10 minutes Discussed medication and nicotine replacement for tobacco cessation Last Documented On 2 1:56PM ; [facility] Intervention and counseling on cessation of tobacco use, 3-10 minutes Last Documented On 0 2:07PM ; [facility] Return to the clinic if cond ition worsens or new symptoms arise Last Documented On 9 1:59PM ; [facility] Intervention and counseling on cessation of tobacco use, 3-10 minutes Last Documented On 9 10:39AM ; [facility] Education and Decision Aids were provided during visit for: Discussed nutritional needs teach healthy choices including fruits and vegetables Last Documented On 3 9:37AM ; [facility] Patient education about a pr oper diet Last Documented On 3 9:37AM ; [facility] Discussed concerns about exe rcise : promote physical activity Last Documented On 3 9:37AM ; [facility] Not requesting contraception Last Documented On 3 9:37AM ; [facility] Discussed nutritional needs teach healthy choices including fruits and vegetables Last Documented On 3 9:20AM ; [facility] Patient education about a pr oper diet Last Documented On 3 9:20AM ; [facility] Discussed concerns about exe rcise : promote physical activity Last Documented On 3 9:20AM ; [facility] Discussed nutritional needs teach healthy choices including fruits and vegetables Last Documented On 3 2:02PM ; [facility] Patient education about a pr oper diet Last Documented On 3 2:02PM ; [facility] Discussed concerns about exe rcise : promote physical activity Last Documented On 3 2:02PM ; [facility] Discussed nutritional needs teach healthy choices including fruits and vegetables Last Documented On 3 8:32AM ; [facility] Patient education about a pr oper diet Last Documented On 3 8:32AM ; [facility] Discussed concerns about exe rcise : promote physical activity Last Documented On 3 8:32AM ; [facility] Discussed nutritional needs teach healthy choices including fruits and vegetables Last Documented On 3 11:28AM ; [facility] Patient education about a pr oper diet Last Documented On 3 11:28AM ; [facility] Discussed concerns about exe rcise : promote physical activity Last Documented On 3 11:28AM ; [facility] Discussed nutritional needs teach healthy choices including fruits and vegetables Last Documented On 2 2:01PM ; [facility] Patient education about a pr oper diet Last Documented On 2 2:01PM ; [facility] Discussed concerns about exe rcise : promote physical activity Last Documented On 2 2:01PM ; [facility] Discussed nutritional needs teach healthy choices including fruits and vegetables Last Documented On 2 2:11PM ; [facility] Patient education about a pr oper diet Last Documented On 2 2:11PM ; [facility] Discussed concerns about exe rcise : promote physical activity Last Documented On 2 2:11PM ; [facility] Discussed current self-care methods/coping skills. ~Validated and normalized pt's feelings while assisting patient process recent events. ~Discussed ongoing counseling. ~Discussed lifestyle changes to address chronic illness. ~Supported patient's personal health goals ~wordfinds. walk, read, eat, enjoy my best friesnd Last Documented On 2 5:54PM ; [facility] Discussed nutritional needs teach healthy choices including fruits and vegetables Last Documented On 2 10:04AM ; [facility] Patient education about a pr oper diet Last Documented On 2 10:04AM ; [facility] Discussed concerns about exe rcise : promote physical activity Last Documented On 2 10:04AM ; [facility] Discussed nutritional needs teach healthy choices including fruits and vegetables Last Documented On 2 1:25PM ; [facility] Patient education about a pr oper diet Last Documented On 2 1:25PM ; [facility] Discussed concerns about exe rcise : promote physical activity Last Documented On 2 1:25PM ; [facility] Discussed nutritional needs teach healthy choices including fruits and vegetables Last Documented On 1 10:08AM ; [facility] Patient education about a pr oper diet Last Documented On 1 10:08AM ; [facility] Discussed concerns about exe rcise : promote physical activity Last Documented On 1 10:08AM ; [facility] Discussed nutritional needs teach healthy choices including fruits and vegetables Last Documented On 1 1:12PM ; [facility] Patient education about a pr oper diet Last Documented On 1 1:12PM ; [facility] Patient education about a pr oper diet Last Documented On 1 1:30PM ; [facility] Patient education about meal planning Last Documented On 1 1:30PM ; [facility] Education about changing eat ing habits Last Documented On 1 1:30PM ; [facility] Patient education about high fiber diet Last Documented On 1 1:30PM ; [facility] Patient education about low fat diet Last Documented On 1 1:30PM ; [facility] Patient education about low cholesterol diet Last Documented On 1 1:30PM ; [facility] Patient education about low carbohydrate diet Last Documented On 1 1:30PM ; [facility] Patient education about high protein diet Last Documented On 1 1:30PM ; [facility] Discussed concerns about exe rcise : promote physical activity Last Documented On 1 1:12PM ; [facility] Education/counseling conduct ed by pharmacist Last Documented On 0 1:39PM ; [facility] Vaccination counseling Last Documented On 0 1:39PM ; [facility] Discussed concerns about exe rcise : promote physical activity Last Documented On 0 2:16PM ; [facility] Patient goals decrease short ness of breath episodes Last Documented On 0 2:11PM ; [facility] Patient states that she uses her rescue [...] recently Last Documented On 0 2:24PM ; [facility] Patient education about a pr oper diet Last Documented On 0 2:54PM ; [facility] Patient education about meal planning Last Documented On 0 2:54PM ; [facility] Education about changing eat ing habits Last Documented On 0 2:54PM ; [facility] Patient education about high fiber diet Last Documented On 0 2:54PM ; [facility] Patient education about low fat diet Last Documented On 0 2:54PM ; [facility] Patient education about low cholesterol diet Last Documented On 0 2:54PM ; [facility] Patient education about low carbohydrate diet Last Documented On 0 2:54PM ; [facility] Patient education about high protein diet Last Documented On 0 2:54PM ; [facility] Discussed nutritional needs teach healthy choices including fruits and vegetables Last Documented On 0 11:11AM ; [facility] Patient education about a pr oper diet Last Documented On 0 11:11AM ; [facility] Patient education about a pr oper diet Last Documented On 0 11:28AM ; [facility] Patient education about meal planning Last Documented On 0 11:28AM ; [facility] Education about changing eat ing habits Last Documented On 0 11:28AM ; [facility] Patient education about high fiber diet Last Documented On 0 11:28AM ; [facility] Patient education about low fat diet Last Documented On 0 11:28AM ; [facility] Patient education about low cholesterol diet Last Documented On 0 11:28AM ; [facility] Patient education about low carbohydrate diet Last Documented On 0 11:28AM ; [facility] Patient education about high protein diet Last Documented On 0 11:28AM ; [facility] Discussed concerns about exe rcise : promote physical activity Last Documented On 0 11:11AM ; [facility] Education/counseling conduct ed by pharmacist Last Documented On 0 1:41PM ; [facility] Patient states that she lonnie gonzalez has [...] own Last Documented On 0 2:08PM ; [facility] Education/counseling conduct ed by pharmacist Last Documented On 9 1:12PM ; [facility] Patient states that she lonnie gonzalez has issues with her inhaler with the spacer. Patient did not bring in inhaler or spacer. Patient was told to bring in inhalers at next scheduled visit for pharmacist to assess inhalation technique. Patient is agreeable Last Documented On 9 1:13PM ; [facility] Patient goals Start using ch deon to help with inhaling dulera Last Documented On 9 2:40PM ; [facility] Patient states that she is g etting [...] vaccines Last Documented On 9 2:51PM ; [facility] Discussed nutritional needs teach healthy choices including fruits and vegetables Last Documented On 9 9:29AM ; [facility] Patient education about a pr oper diet Last Documented On 9 9:29AM ; [facility] Discussed concerns about exe rcise : promote physical activity Last Documented On 9 9:29AM ; [facility] Work Phone: 1(553) 483-486610-13-2023 Hospital Discharge instructions Additional Instructions Important Contact Information You can call [facility] at [phone] any time day or night if you have emergent questions or question regarding discharge instructions. If at any time you are feeling an increase in your psychiatric symptoms, call your physician or behavioral healthcare provider. If any time you have thoughts of harming yourself or others contact one of the following: Call 98-8 (available 24/12) Crisis Text Line (available 24/12) text 4HOPE to [phone] [facility] Hope Line (available 8 a.m. Midnight) call [phone] ([phone]) Regular Diet No Activity Restrictions Risperdal Consta Long Acting Injection Due 03/21/23[facility] Work Phone: 1(115) 992-651410-12-2023 Consult note Author Maddy Moss [facility] March 14, 2023 3:16pm Note Date/Time March 14, 2023 3 :14pm [facility] [address] [place] [address] Cardiology Consult Note Signed Patient: Gail Almeida MR#: [id number] : 1955 Acct:[id number] Age/Sex: 67 / F Adm Date: 3 Loc: 1S Room: [address] [place] [address] Type: ADM IN Attending Dr: Joe Davis [...] negative unless noted below or in HPI [facility] Medical History (Updated 03/14/23 @ 15:12 by [...] mcg-salmeterol 50 mcg/dose blistr powdr for inhalation (Antoniaxradha Inhub) 1 inh inhalation BID 03/12/23 [History Confirmed 03/12/23] polyethylene glycol 3350 17 gram/dose oral powder 17 g PO DAILY PRN Nbefljvvigzw52/10/23 [History Confirmed 03/12/23] Exam Physical Exam Vital [...] x10E3/uL Lymph # (Auto) 1.9 (1.00-4.8) x10E3/uL Mclennan # (Auto) 0.6 (0.0-0.8) x10E3/uL Eos # [...] <Electronically signed by Maddy Moss MD> 03/14/23 [facility] Work Phone: 1(251) 108-451310-12-2023 Progress note Author Joe rodriguez [facility] March 14, 2023 6:33am Note Date/Time March 14, 2023 6 :33am [facility] [address] [place] [address] Psychiatry Progress Note Signed Patient: Gail Almeida MR#: [id number] : 1955 Acct:[id number] Age/Sex: 67 / F Adm Date: 3 Loc: Room: 4I7530-6 Type : ADM IN Attending Dr: Joe [...] signed by Joe Davis MD> 03/14/23 0633 [facility] Work Phone: 1(112) 450-904410-11-2023 Progress note Author Joe rodriguez [facility] March 13, 2023 1:14pm Note Date/Time March 13, 2023 7 :06am [facility] [address] [place] [address] Psychiatry Progress Note Signed Patient: Gail Almeida MR#: [id number] : 1955 Acct:[id number] Age/Sex: 67 / F Adm Date: 3 Loc: Room: [address] [place] [address] Type : ADM IN Attending Dr: Joe [...] signed by Joe Davis MD> 03/13/23 1314 [facility] Work Phone: 1([phone] 630-114410-10-2023 History and physical note Author Joe rodriguez [facility] March 12, 2023 11:25am Note Date/Time March 12, 2023 1 0:29am [facility] [address] [place] [address] Psychiatry H&P Signed Patient: Gail Almeida MR#: [id number] : 1955 Acct:[id number] Age/Sex: 67 / F Adm Date: 3 Loc: Room: [address] [place] [address] Type: ADM IN Attending Dr: Joe Davis [...] signs of shelby. She was sent to [facility] for medical clearance and then brought to [facility]. The patient stated that her [...] Past hospitalizations: Hospitalized 8 years ago at [facility] Past suicide attempts: Denies Family psych history: Mother with bipolar disorder. Daughter with bipolar disorder. Previous medications: Seroquel, Risperdal IM, amantadine, Cogentin, lithium Alcohol and drug use: Denies alcohol or illicit drug use. Reports smoking 3 to 4 cigarettes/day. Living: Alone at [facility] Employment: Unemployed. Plans to retire next year. [...] equal bilaterally. CN XII: Tongue protrusion midline [facility] Medical History (Updated 03/12/23 @ 11:22 by [...] oral powder 17 g PO DAILY PRN Msnssdacwbgw35/10/23 [History Confirmed 03/12/23] Exam Physical Exam Vital [...] <Electronically signed by Joe Davis MD> 03/12/23 [facility] Work Phone: 1(164) 655-294809-28-2023 History general Narrative - Reported Includes: Medical History in patient's chart Description Last Updated 1 previous live (s) 02/28/2023 Last Documented On 3 9:51AM ; [facility] Previously 1 time(s) 02/28/2023 Last Documented On 3 9:51AM ; [facility] Previous hospitalizations 09/18/2022 Last Documented On 3 2:33PM ; [facility] Currently nursing 11/03/2021 Last Documented On 2 7:00PM ; [facility] Partners status unknown for sexually tra nsmitted infection 11/03/2021 Last Documented On 2 7:00PM ; [facility] 11/03/2021 Last Documented On 2 7:00PM ; [facility] Not planning to have a baby in the next 12 months 11/03/2021 Last Documented On 2 7:00PM ; [facility] Heart Attack 03/2021 [facility] 1 07/09/2020 Last Documented On 1 10:59AM ; [facility] A recent immunization for flu 05/06/2020 Last Documented On 0 7:27PM ; [facility] Patient gave verbal consent for teleheal th 08/31/2019 Last Documented On 0 9:21AM ; [facility] History of abnormal electrocardiogram Last Documented On 9 2:12PM ; [facility] History of asthma 07/31/2018 Last Documented On 9 2:12PM ; [facility] History of cardiovascular disorder 07/31 Last Documented On 9 2:12PM ; [facility] History of respiratory disorder 07/31/19 19 Last Documented On 9 2:12PM ; [facility] History of bipolar disorder NOS 07/31/19 19 Last Documented On 9 2:12PM ; [facility] History of depression 07/31/2018 Last Documented On 9 2:12PM ; [facility] History of psychiatric disorders 019 Last Documented On 9 2:12PM ; [facility] Work Phone: 1(983) 427-528209-28-2023 Progress note* Progress note Date Encounter Last Documented by 02/28/2023 Medical Established Patient Last documented on 02/28/2023; 9:51 AM, Aaron Whitaker CNP; [facility] Active Problems & Conditions - J20.9 - [...] tablet by mouth twice a day DR GALICIA, 0 days, 0 refills - Benztropine Mesylate 0.5 MG Oral Tablet Take 1 tablet by mouth twice a day DR GALICIA, 0 days, 0 refills - Calcium 600+D [...] arm pain, 5 days, 0 refills - [place] Carbonate 150 MG Oral Capsule one capsule [...] Bipolar disorder NOS Depression Heart Attack 03/2021 [facility]. Surgical: - General surgery right shoulder ORIF [...] BP-Sitting L111/76 mmHg BP Cuff SizeRegular Pulse Rate-Ecgnbqc39 bpm Jtfghw00 in Kqjllm411 lbs 12.8 oz Body Mass Index24 kg/m2 Body Surface Area1.7 m2 Oxygen Dzjznhexsv91 % Vital Signs: - Systolic blood pressure [...] breast Outside Diagn Tests/Imaging: Mammogram - Screening ([id number]) EndCited StartCited- Other Topiramate 25 MG tablet [...] + 0 pt : Not at all. [facility]07-12-2023 Evaluation note* Encounter Date Diagnosis Assessment Notes [...] Other specified postprocedural states (ICD-10 - Z98.890) [facility] Other 06-19-2023 Progress note* Progress note Date Encounter Last Documented by 11/19/2022 Medical Established Patient Last documented on 11/19/2022; 10:15 AM, Karla Clark CNP; [employer] [facility] Active Problems & Conditions - J20.9 [...] tablet by mouth twice a day DR GALICIA, 0 days, 0 refills - Benztropine Mesylate 0.5 MG Oral Tablet Take 1 tablet by mouth twice a day DR GALICIA, 0 days, 0 refills - Calcium 600+D [...] EVERY DAY, 30 days, 11 refills - [place] Carbonate 300MG Oral Tablet 300 MG take [...] Bipolar disorder NOS Depression Heart Attack 03/2021 [facility]. Surgical: - General surgery right shoulder ORIF [...] BP-Sitting L133/60 mmHg BP Cuff SizeRegular Pulse Rate-Veqskyo40 bpm Temp-Fitjcpgg27.6 F Warhtt19 in Anvgib729 lbs 6.4 oz Body Mass Index23.6 kg/m2 Body Surface Area1.7 m2 Oxygen Falthuwpza15 % General Appearance: - Awake. - Alert. [...] + 0 pt : Not at all. [facility]06-19-2023 Instructions Includes: Instructions for all patient encounters Instructions to patient Intervention and counseling on cessation of tobacco use, 3-10 minutes Discussed medication and nicotine replacement for tobacco cessation Last Documented On 3 8:54AM ; [facility] Intervention and counseling on cessation of tobacco use, 3-10 minutes Discussed medication and nicotine replacement for tobacco cessation Last Documented On 2 1:56PM ; [facility] Intervention and counseling on cessation of tobacco use, 3-10 minutes Last Documented On 0 2:07PM ; [facility] Return to the clinic if cond ition worsens or new symptoms arise Last Documented On 9 1:59PM ; [facility] Intervention and counseling on cessation of tobacco use, 3-10 minutes Last Documented On 9 10:39AM ; [facility] Education and Decision Aids were provided during visit for: Discussed nutritional needs teach healthy choices including fruits and vegetables Last Documented On 3 9:20AM ; [facility] Patient education about a pr oper diet Last Documented On 3 9:20AM ; [facility] Discussed concerns about exe rcise : promote physical activity Last Documented On 3 9:20AM ; [facility] Discussed nutritional needs teach healthy choices including fruits and vegetables Last Documented On 3 2:02PM ; [facility] Patient education about a pr oper diet Last Documented On 3 2:02PM ; [facility] Discussed concerns about exe rcise : promote physical activity Last Documented On 3 2:02PM ; [facility] Discussed nutritional needs teach healthy choices including fruits and vegetables Last Documented On 3 8:32AM ; [facility] Patient education about a pr oper diet Last Documented On 3 8:32AM ; [facility] Discussed concerns about exe rcise : promote physical activity Last Documented On 3 8:32AM ; [facility] Discussed nutritional needs teach healthy choices including fruits and vegetables Last Documented On 3 11:28AM ; [facility] Patient education about a pr oper diet Last Documented On 3 11:28AM ; [facility] Discussed concerns about exe rcise : promote physical activity Last Documented On 3 11:28AM ; [facility] Discussed nutritional needs teach healthy choices including fruits and vegetables Last Documented On 2 2:01PM ; [facility] Patient education about a pr oper diet Last Documented On 2 2:01PM ; [facility] Discussed concerns about exe rcise : promote physical activity Last Documented On 2 2:01PM ; [facility] Discussed nutritional needs teach healthy choices including fruits and vegetables Last Documented On 2 2:11PM ; [facility] Patient education about a pr oper diet Last Documented On 2 2:11PM ; [facility] Discussed concerns about exe rcise : promote physical activity Last Documented On 2 2:11PM ; [facility] Discussed current self-care methods/coping skills. ~Validated and normalized pt's feelings while assisting patient process recent events. ~Discussed ongoing counseling. ~Discussed lifestyle changes to address chronic illness. ~Supported patient's personal health goals ~wordfinds. walk, read, eat, enjoy my best friesnd Last Documented On 2 5:54PM ; [facility] Discussed nutritional needs teach healthy choices including fruits and vegetables Last Documented On 2 10:04AM ; [facility] Patient education about a pr oper diet Last Documented On 2 10:04AM ; [facility] Discussed concerns about exe rcise : promote physical activity Last Documented On 2 10:04AM ; [facility] Discussed nutritional needs teach healthy choices including fruits and vegetables Last Documented On 2 1:25PM ; [facility] Patient education about a pr oper diet Last Documented On 2 1:25PM ; [facility] Discussed concerns about exe rcise : promote physical activity Last Documented On 2 1:25PM ; [facility] Discussed nutritional needs teach healthy choices including fruits and vegetables Last Documented On 1 10:08AM ; [facility] Patient education about a pr oper diet Last Documented On 1 10:08AM ; [facility] Discussed concerns about exe rcise : promote physical activity Last Documented On 1 10:08AM ; [facility] Discussed nutritional needs teach healthy choices including fruits and vegetables Last Documented On 1 1:12PM ; [facility] Patient education about a pr oper diet Last Documented On 1 1:12PM ; [facility] Patient education about a pr oper diet Last Documented On 1 1:30PM ; [facility] Patient education about meal planning Last Documented On 1 1:30PM ; [facility] Education about changing eat ing habits Last Documented On 1 1:30PM ; [facility] Patient education about high fiber diet Last Documented On 1 1:30PM ; [facility] Patient education about low fat diet Last Documented On 1 1:30PM ; [facility] Patient education about low cholesterol diet Last Documented On 1 1:30PM ; [facility] Patient education about low carbohydrate diet Last Documented On 1 1:30PM ; [facility] Patient education about high protein diet Last Documented On 1 1:30PM ; [facility] Discussed concerns about exe rcise : promote physical activity Last Documented On 1 1:12PM ; [facility] Education/counseling conduct ed by pharmacist Last Documented On 0 1:39PM ; [facility] Vaccination counseling Last Documented On 0 1:39PM ; [facility] Discussed concerns about exe rcise : promote physical activity Last Documented On 0 2:16PM ; [facility] Patient goals decrease short ness of breath episodes Last Documented On 0 2:11PM ; [facility] Patient states that she uses her rescue [...] recently Last Documented On 0 2:24PM ; [facility] Patient education about a pr oper diet Last Documented On 0 2:54PM ; [facility] Patient education about meal planning Last Documented On 0 2:54PM ; [facility] Education about changing eat ing habits Last Documented On 0 2:54PM ; [facility] Patient education about high fiber diet Last Documented On 0 2:54PM ; [facility] Patient education about low fat diet Last Documented On 0 2:54PM ; [facility] Patient education about low cholesterol diet Last Documented On 0 2:54PM ; [facility] Patient education about low carbohydrate diet Last Documented On 0 2:54PM ; [facility] Patient education about high protein diet Last Documented On 0 2:54PM ; [facility] Discussed nutritional needs teach healthy choices including fruits and vegetables Last Documented On 0 11:11AM ; [facility] Patient education about a pr oper diet Last Documented On 0 11:11AM ; [facility] Patient education about a pr oper diet Last Documented On 0 11:28AM ; [facility] Patient education about meal planning Last Documented On 0 11:28AM ; [facility] Education about changing eat ing habits Last Documented On 0 11:28AM ; [facility] Patient education about high fiber diet Last Documented On 0 11:28AM ; [facility] Patient education about low fat diet Last Documented On 0 11:28AM ; [facility] Patient education about low cholesterol diet Last Documented On 0 11:28AM ; [facility] Patient education about low carbohydrate diet Last Documented On 0 11:28AM ; [facility] Patient education about high protein diet Last Documented On 0 11:28AM ; [facility] Discussed concerns about exe rcise : promote physical activity Last Documented On 0 11:11AM ; [facility] Education/counseling conduct ed by pharmacist Last Documented On 0 1:41PM ; [facility] Patient states that she lonnie gonzalez has [...] own Last Documented On 0 2:08PM ; [facility] Education/counseling conduct ed by pharmacist Last Documented On 9 1:12PM ; [facility] Patient states that she lonnie gonzalez has issues with her inhaler with the spacer. Patient did not bring in inhaler or spacer. Patient was told to bring in inhalers at next scheduled visit for pharmacist to assess inhalation technique. Patient is agreeable Last Documented On 9 1:13PM ; [facility] Patient goals Start using ch deon to help with inhaling dulera Last Documented On 9 2:40PM ; [facility] Patient states that she is g etting [...] vaccines Last Documented On 9 2:51PM ; [facility] Discussed nutritional needs teach healthy choices including fruits and vegetables Last Documented On 9 9:29AM ; [facility] Patient education about a pr oper diet Last Documented On 9 9:29AM ; [facility] Discussed concerns about exe rcise : promote physical activity Last Documented On 9 9:29AM ; [facility] Work Phone: [phone]) 264-489405-31-2023 Evaluation note* Encounter Date Diagnosis Assessment Notes [...] Other specified postprocedural states (ICD-10 - Z98.890) [facility] Other 05-05-2023 Evaluation note* Encounter Date Diagnosis Assessment Notes Treatment Notes Treatment Clinical Notes October, Other closed displaced fracture of proximal end of right humerus with routine healing, subsequent encounter (ICD-10 - S42.291D) [facility] Other 05-03-2023 Evaluation note* Encounter Date Diagnosis [...] as documented in the electronic medical record. [facility] Other 04-21-2023 Progress note* Progress note Date Encounter Last Documented by 09/21/2022 Chart Update Last documented on 09/21/2022; 4:58 PM, Karla Clark CNP; [facility] Active Problems & Conditions - J45.909 - [...] tablet by mouth twice a day DR GALICIA, 0 days, 0 refills - Benztropine Mesylate 0.5 MG Oral Tablet Take 1 tablet by mouth twice a day DR GALICIA, 0 days, 0 refills - Calcium 600+D [...] Oral Tablet 5 days, 0 refills - [place] Carbonate 300MG Oral Tablet 300 MG take [...] Bipolar disorder NOS Depression Heart Attack 03/2021 [facility]. Surgical: - General surgery right shoulder ORIF [...] Vaccine Advance Directives - Advance Care Planning [facility]04-18-2023 History general Narrative - Reported Includes: Medical History in patient's chart Description Last Updated Previous hospitalizations 09/18/2022 Last Documented On 3 2:33PM ; [facility] Currently nursing 11/03/2021 Last Documented On 2 7:00PM ; [facility] status unknown for sexually tra nsmitted infection 11/03/2021 Last Documented On 2 7:00PM ; [facility] 11/03/2021 Last Documented On 2 7:00PM ; [facility] Not planning to have a baby in the next 12 months 11/03/2021 Last Documented On 2 7:00PM ; [facility] Heart Attack 03/2021 [facility] 1 07/09/2020 Last Documented On 1 10:59AM ; [facility] A recent immunization for flu 05/06/2020 Last Documented On 0 7:27PM ; [facility] Patient gave verbal consent for teleheal th 08/31/2019 Last Documented On 0 9:21AM ; [facility] History of abnormal electrocardiogram Last Documented On 9 2:12PM ; [facility] History of asthma 07/31/2018 Last Documented On 9 2:12PM ; [facility] History of cardiovascular disorder 07/31 Last Documented On 9 2:12PM ; [facility] History of respiratory disorder 07/31/19 19 Last Documented On 9 2:12PM ; [facility] History of bipolar disorder NOS 07/31/19 19 Last Documented On 9 2:12PM ; [facility] History of depression 07/31/2018 Last Documented On 9 2:12PM ; [facility] History of psychiatric disorders 019 Last Documented On 9 2:12PM ; [facility] Work Phone: [phone]) 794-570104-18-2023 Progress note* Progress note Date Encounter Last Documented by 09/18/2022 Medical Established Patient Last documented on 09/18/2022; 2:33 PM, Karla Clark CNP; [facility] Active Problems & Conditions - J45.909 - [...] Patient had surgery on rotator cuff at [facility]. Referred Here Referred by emergency room. Prior encounters. History of Present Illness Gail Almeida is a 66 year old female. - Allergy list reviewed - Reviewed Medications - Medication list reviewed Presents s/p arm fracture 09/06 where she fell coming out of her apartment and tried to catch herself with the right arm. reports dr galicia would not agree to lifting her guardianship [...] tablet by mouth twice a day DR GALICIA, 0 days, 0 refills - Benztropine Mesylate 0.5 MG Oral Tablet Take 1 tablet by mouth twice a day DR GALICIA, 0 days, 0 refills - Calcium 600+D [...] Oral Tablet 5 days, 0 refills - [place] Carbonate 300MG Oral Tablet 300 MG take [...] Bipolar disorder NOS Depression Heart Attack 03/2021 [facility]. Surgical: - Hysterectomy Social History Environmental Exposure: [...] BP-Sitting L142/74 mmHg BP Cuff SizeRegular Pulse Rate-Ihavzta67 bpm Temp-Bijvqiih92.6 F Rtexvf67 in Ygbhyp733 lbs 12.8 oz Body Mass Index24.9 kg/m2 Body Surface Area1.7 m2 Oxygen Yreztslscc39 % General Appearance: - Awake. - Alert. [...] Tobacco Cessation Intervention and Counseling satisfied 09/18/2022. [facility]04-10-2023 Evaluation note* Encounter Date Diagnosis Assessment Notes [...] - S42.291A) Gail is here today for [place] [facility] follow-up of right shoulder fracture dislocation. Prior medical notes from [place] [facility] have been reviewed today. Images have [...] poor healing. I have advised against the halfway use of narcotic pain medication. I have advised to follow all post-operative instructions in order to obtain the best outcome. Informed consent has been verbally affirmed and signed as indicated. Plan for ORIF of right greater tuberosity. Beachchair positioning. Possible proximal humerus plate. Sep, Other See orders for this visit as documented in the electronic medical record. [facility] Other 04-06-2023 NoteEXAM: XR SHOULDER RT 1 V HISTORY: Pain ; post reduction evaluation COMPARISON: Right shoulder x-rays from same date TECHNIQUE: FINDINGS: The humeral head remains inferior to the glenoid. Stable displaced fracture of the greater tuberosity. IMPRESSION: 1. 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 Electronically authenticated by: HÉCTOR HO Date: 2022-09-06 14:58[facility]04-06-2023 NotePROCEDURE: XR HUMERUS RT MIN 2 [...] Electronically authenticated by: HÉCTOR HO Date: 2022-09-06 11:48[facility]04-06-2023 NotePROCEDURE: XR HUMERUS RT MIN 2 [...] Electronically authenticated by: HÉCTOR HO Date: 2022-09-06 11:48[facility]03-27-2023 Progress note* Progress note Date Encounter Last Documented by 08/27/2022 Chart Update Last documented on 08/27/2022; 8:57 AM, Carolin ATWOOD; [facility] Active Problems & Conditions - J45.909 [...] tablet by mouth twice a day DR GALICIA, 0 days, 0 refills - Benztropine Mesylate 0.5 MG Oral Tablet Take 1 tablet by mouth twice a day DR GALICIA, 0 days, 0 refills - Calcium 600+D [...] EVERY DAY, 30 days, 11 refills - [place] Carbonate 300MG Oral Tablet 300 MG take [...] total score: 0 pts (Scale: 0-6) PHQ2. [facility]03-27-2023 Progress note* Progress note Date Encounter Last Documented by 08/27/2022 Medical Established Patient Last documented on 08/27/2022; 9:20 AM, Karla Clark CNP; [facility] Active Problems & Conditions - J45.909 - [...] should sign , she reports that Dr Galicia wants to have me do it , [...] tablet by mouth twice a day DR GALICIA, 0 days, 0 refills - Benztropine Mesylate 0.5 MG Oral Tablet Take 1 tablet by mouth twice a day DR GALICIA, 0 days, 0 refills - Calcium 600+D [...] EVERY DAY, 30 days, 11 refills - [place] Carbonate 300MG Oral Tablet 300 MG take [...] Bipolar disorder NOS Depression Heart Attack 03/2021 [facility]. Surgical: - Hysterectomy Social History Environmental Exposure: [...] BP-Sitting L115/73 mmHg BP Cuff SizeRegular Pulse Rate-Yiquzti87 bpm Temp-Lmostvwn76 F Epqzpx56 in Ilkhvf124 lbs 9.6 oz Body Mass Index24.6 kg/m2 Body Surface Area1.7 m2 Oxygen Yqrqdtqoha96 % General Appearance: - Appears distressed. - [...] Tobacco Cessation Intervention and Counseling satisfied 08/27/2022. [facility]03-27-2023 Instructions Includes: Instructions for all patient encounters Instructions to patient Intervention and counseling on cessation of tobacco use, 3-10 minutes Discussed medication and nicotine replacement for tobacco cessation Last Documented On 3 8:54AM ; [facility] Intervention and counseling on cessation of tobacco use, 3-10 minutes Discussed medication and nicotine replacement for tobacco cessation Last Documented On 2 1:56PM ; [facility] Intervention and counseling on cessation of tobacco use, 3-10 minutes Last Documented On 0 2:07PM ; [facility] Return to the clinic if cond ition worsens or new symptoms arise Last Documented On 9 1:59PM ; [facility] Intervention and counseling on cessation of tobacco use, 3-10 minutes Last Documented On 9 10:39AM ; [facility] Education and Decision Aids were provided during visit for: Discussed nutritional needs teach healthy choices including fruits and vegetables Last Documented On 3 9:37AM ; [facility] Patient education about a pr oper diet Last Documented On 3 9:37AM ; [facility] Discussed concerns about exe rcise : promote physical activity Last Documented On 3 9:37AM ; [facility] Not requesting contraception Last Documented On 3 9:37AM ; [facility] Discussed nutritional needs teach healthy choices including fruits and vegetables Last Documented On 3 9:20AM ; [facility] Patient education about a pr oper diet Last Documented On 3 9:20AM ; [facility] Discussed concerns about exe rcise : promote physical activity Last Documented On 3 9:20AM ; [facility] Discussed nutritional needs teach healthy choices including fruits and vegetables Last Documented On 3 2:02PM ; [facility] Patient education about a pr oper diet Last Documented On 3 2:02PM ; [facility] Discussed concerns about exe rcise : promote physical activity Last Documented On 3 2:02PM ; [facility] Discussed nutritional needs teach healthy choices including fruits and vegetables Last Documented On 3 8:32AM ; [facility] Patient education about a pr oper diet Last Documented On 3 8:32AM ; [facility] Discussed concerns about exe rcise : promote physical activity Last Documented On 3 8:32AM ; [facility] Discussed nutritional needs teach healthy choices including fruits and vegetables Last Documented On 3 11:28AM ; [facility] Patient education about a pr oper diet Last Documented On 3 11:28AM ; [facility] Discussed concerns about exe rcise : promote physical activity Last Documented On 3 11:28AM ; [facility] Discussed nutritional needs teach healthy choices including fruits and vegetables Last Documented On 2 2:01PM ; [facility] Patient education about a pr oper diet Last Documented On 2 2:01PM ; [facility] Discussed concerns about exe rcise : promote physical activity Last Documented On 2 2:01PM ; [facility] Discussed nutritional needs teach healthy choices including fruits and vegetables Last Documented On 2 2:11PM ; [facility] Patient education about a pr oper diet Last Documented On 2 2:11PM ; [facility] Discussed concerns about exe rcise : promote physical activity Last Documented On 2 2:11PM ; [facility] Discussed current self-care methods/coping skills. ~Validated and normalized pt's feelings while assisting patient process recent events. ~Discussed ongoing counseling. ~Discussed lifestyle changes to address chronic illness. ~Supported patient's personal health goals ~wordfinds. walk, read, eat, enjoy my best friesnd Last Documented On 2 5:54PM ; [facility] Discussed nutritional needs teach healthy choices including fruits and vegetables Last Documented On 2 10:04AM ; [facility] Patient education about a pr oper diet Last Documented On 2 10:04AM ; [facility] Discussed concerns about exe rcise : promote physical activity Last Documented On 2 10:04AM ; [facility] Discussed nutritional needs teach healthy choices including fruits and vegetables Last Documented On 2 1:25PM ; [facility] Patient education about a pr oper diet Last Documented On 2 1:25PM ; [facility] Discussed concerns about exe rcise : promote physical activity Last Documented On 2 1:25PM ; [facility] Discussed nutritional needs teach healthy choices including fruits and vegetables Last Documented On 1 10:08AM ; [facility] Patient education about a pr oper diet Last Documented On 1 10:08AM ; [facility] Discussed concerns about exe rcise : promote physical activity Last Documented On 1 10:08AM ; [facility] Discussed nutritional needs teach healthy choices including fruits and vegetables Last Documented On 1 1:12PM ; [facility] Patient education about a pr oper diet Last Documented On 1 1:12PM ; [facility] Patient education about a pr oper diet Last Documented On 1 1:30PM ; [facility] Patient education about meal planning Last Documented On 1 1:30PM ; [facility] Education about changing eat ing habits Last Documented On 1 1:30PM ; [facility] Patient education about high fiber diet Last Documented On 1 1:30PM ; [facility] Patient education about low fat diet Last Documented On 1 1:30PM ; [facility] Patient education about low cholesterol diet Last Documented On 1 1:30PM ; [facility] Patient education about low carbohydrate diet Last Documented On 1 1:30PM ; [facility] Patient education about high protein diet Last Documented On 1 1:30PM ; [facility] Discussed concerns about exe rcise : promote physical activity Last Documented On 1 1:12PM ; [facility] Education/counseling conduct ed by pharmacist Last Documented On 0 1:39PM ; [facility] Vaccination counseling Last Documented On 0 1:39PM ; [facility] Discussed concerns about exe rcise : promote physical activity Last Documented On 0 2:16PM ; [facility] Patient goals decrease short ness of breath episodes Last Documented On 0 2:11PM ; [facility] Patient states that she uses her rescue [...] recently Last Documented On 0 2:24PM ; [facility] Patient education about a pr oper diet Last Documented On 0 2:54PM ; [facility] Patient education about meal planning Last Documented On 0 2:54PM ; [facility] Education about changing eat ing habits Last Documented On 0 2:54PM ; [facility] Patient education about high fiber diet Last Documented On 0 2:54PM ; [facility] Patient education about low fat diet Last Documented On 0 2:54PM ; [facility] Patient education about low cholesterol diet Last Documented On 0 2:54PM ; [facility] Patient education about low carbohydrate diet Last Documented On 0 2:54PM ; [facility] Patient education about high protein diet Last Documented On 0 2:54PM ; [facility] Discussed nutritional needs teach healthy choices including fruits and vegetables Last Documented On 0 11:11AM ; [facility] Patient education about a pr oper diet Last Documented On 0 11:11AM ; [facility] Patient education about a pr oper diet Last Documented On 0 11:28AM ; [facility] Patient education about meal planning Last Documented On 0 11:28AM ; [facility] Education about changing eat ing habits Last Documented On 0 11:28AM ; [facility] Patient education about high fiber diet Last Documented On 0 11:28AM ; [facility] Patient education about low fat diet Last Documented On 0 11:28AM ; [facility] Patient education about low cholesterol diet Last Documented On 0 11:28AM ; [facility] Patient education about low carbohydrate diet Last Documented On 0 11:28AM ; [facility] Patient education about high protein diet Last Documented On 0 11:28AM ; [facility] Discussed concerns about exe rcise : promote physical activity Last Documented On 0 11:11AM ; [facility] Education/counseling conduct ed by pharmacist Last Documented On 0 1:41PM ; [facility] Patient states that she lonnie gonzalez has [...] own Last Documented On 0 2:08PM ; [facility] Education/counseling conduct ed by pharmacist Last Documented On 9 1:12PM ; [facility] Patient states that she lonnie gonzalez has issues with her inhaler with the spacer. Patient did not bring in inhaler or spacer. Patient was told to bring in inhalers at next scheduled visit for pharmacist to assess inhalation technique. Patient is agreeable Last Documented On 9 1:13PM ; [facility] Patient goals Start using ch deon to help with inhaling dulera Last Documented On 9 2:40PM ; [facility] Patient states that she is g etting [...] vaccines Last Documented On 9 2:51PM ; [facility] Discussed nutritional needs teach healthy choices including fruits and vegetables Last Documented On 9 9:29AM ; [facility] Patient education about a pr oper diet Last Documented On 9 9:29AM ; [facility] Discussed concerns about exe rcise : promote physical activity Last Documented On 9 9:29AM ; [facility] Work Phone: 1([phone]) 382-395303-27-2023 Instructions Includes: Instructions for all patient encounters Instructions to patient Intervention and counseling on cessation of tobacco use, 3-10 minutes Discussed medication and nicotine replacement for tobacco cessation Last Documented On 3 8:54AM ; [facility] Intervention and counseling on cessation of tobacco use, 3-10 minutes Discussed medication and nicotine replacement for tobacco cessation Last Documented On 2 1:56PM ; [facility] Intervention and counseling on cessation of tobacco use, 3-10 minutes Last Documented On 0 2:07PM ; [facility] Return to the clinic if cond ition worsens or new symptoms arise Last Documented On 9 1:59PM ; [facility] Intervention and counseling on cessation of tobacco use, 3-10 minutes Last Documented On 9 10:39AM ; [facility] Education and Decision Aids were provided during visit for: Discussed nutritional needs teach healthy choices including fruits and vegetables Last Documented On 3 8:32AM ; [facility] Patient education about a pr oper diet Last Documented On 3 8:32AM ; [facility] Discussed concerns about exe rcise : promote physical activity Last Documented On 3 8:32AM ; [facility] Discussed nutritional needs teach healthy choices including fruits and vegetables Last Documented On 3 11:28AM ; [facility] Patient education about a pr oper diet Last Documented On 3 11:28AM ; [facility] Discussed concerns about exe rcise : promote physical activity Last Documented On 3 11:28AM ; [facility] Discussed nutritional needs teach healthy choices including fruits and vegetables Last Documented On 2 2:01PM ; [facility] Patient education about a pr oper diet Last Documented On 2 2:01PM ; [facility] Discussed concerns about exe rcise : promote physical activity Last Documented On 2 2:01PM ; [facility] Discussed nutritional needs teach healthy choices including fruits and vegetables Last Documented On 2 2:11PM ; [facility] Patient education about a pr oper diet Last Documented On 2 2:11PM ; [facility] Discussed concerns about exe rcise : promote physical activity Last Documented On 2 2:11PM ; [facility] Discussed current self-care methods/coping skills. ~Validated and normalized pt's feelings while assisting patient process recent events. ~Discussed ongoing counseling. ~Discussed lifestyle changes to address chronic illness. ~Supported patient's personal health goals ~wordfinds. walk, read, eat, enjoy my best friesnd Last Documented On 2 5:54PM ; [facility] Discussed nutritional needs teach healthy choices including fruits and vegetables Last Documented On 2 10:04AM ; [facility] Patient education about a pr oper diet Last Documented On 2 10:04AM ; [facility] Discussed concerns about exe rcise : promote physical activity Last Documented On 2 10:04AM ; [facility] Discussed nutritional needs teach healthy choices including fruits and vegetables Last Documented On 2 1:25PM ; [facility] Patient education about a pr oper diet Last Documented On 2 1:25PM ; [facility] Discussed concerns about exe rcise : promote physical activity Last Documented On 2 1:25PM ; [facility] Discussed nutritional needs teach healthy choices including fruits and vegetables Last Documented On 1 10:08AM ; [facility] Patient education about a pr oper diet Last Documented On 1 10:08AM ; [facility] Discussed concerns about exe rcise : promote physical activity Last Documented On 1 10:08AM ; [facility] Discussed nutritional needs teach healthy choices including fruits and vegetables Last Documented On 1 1:12PM ; [facility] Patient education about a pr oper diet Last Documented On 1 1:12PM ; [facility] Patient education about a pr oper diet Last Documented On 1 1:30PM ; [facility] Patient education about meal planning Last Documented On 1 1:30PM ; [facility] Education about changing eat ing habits Last Documented On 1 1:30PM ; [facility] Patient education about high fiber diet Last Documented On 1 1:30PM ; [facility] Patient education about low fat diet Last Documented On 1 1:30PM ; [facility] Patient education about low cholesterol diet Last Documented On 1 1:30PM ; [facility] Patient education about low carbohydrate diet Last Documented On 1 1:30PM ; [facility] Patient education about high protein diet Last Documented On 1 1:30PM ; [facility] Discussed concerns about exe rcise : promote physical activity Last Documented On 1 1:12PM ; [facility] Education/counseling conduct ed by pharmacist Last Documented On 0 1:39PM ; [facility] Vaccination counseling Last Documented On 0 1:39PM ; [facility] Discussed concerns about exe rcise : promote physical activity Last Documented On 0 2:16PM ; [facility] Patient goals decrease short ness of breath episodes Last Documented On 0 2:11PM ; [facility] Patient states that she uses her rescue [...] recently Last Documented On 0 2:24PM ; [facility] Patient education about a pr oper diet Last Documented On 0 2:54PM ; [facility] Patient education about meal planning Last Documented On 0 2:54PM ; [facility] Education about changing eat ing habits Last Documented On 0 2:54PM ; [facility] Patient education about high fiber diet Last Documented On 0 2:54PM ; [facility] Patient education about low fat diet Last Documented On 0 2:54PM ; [facility] Patient education about low cholesterol diet Last Documented On 0 2:54PM ; [facility] Patient education about low carbohydrate diet Last Documented On 0 2:54PM ; [facility] Patient education about high protein diet Last Documented On 0 2:54PM ; [facility] Discussed nutritional needs teach healthy choices including fruits and vegetables Last Documented On 0 11:11AM ; [facility] Patient education about a pr oper diet Last Documented On 0 11:11AM ; [facility] Patient education about a pr oper diet Last Documented On 0 11:28AM ; [facility] Patient education about meal planning Last Documented On 0 11:28AM ; [facility] Education about changing eat ing habits Last Documented On 0 11:28AM ; [facility] Patient education about high fiber diet Last Documented On 0 11:28AM ; [facility] Patient education about low fat diet Last Documented On 0 11:28AM ; [facility] Patient education about low cholesterol diet Last Documented On 0 11:28AM ; [facility] Patient education about low carbohydrate diet Last Documented On 0 11:28AM ; [facility] Patient education about high protein diet Last Documented On 0 11:28AM ; [facility] Discussed concerns about exe rcise : promote physical activity Last Documented On 0 11:11AM ; [facility] Education/counseling conduct ed by pharmacist Last Documented On 0 1:41PM ; [facility] Patient states that she lonnie gonzalez has [...] own Last Documented On 0 2:08PM ; [facility] Education/counseling conduct ed by pharmacist Last Documented On 9 1:12PM ; [facility] Patient states that she lonnie gonzalez has issues with her inhaler with the spacer. Patient did not bring in inhaler or spacer. Patient was told to bring in inhalers at next scheduled visit for pharmacist to assess inhalation technique. Patient is agreeable Last Documented On 9 1:13PM ; [facility] Patient goals Start using ch deon to help with inhaling dulera Last Documented On 9 2:40PM ; [facility] Patient states that she is g etting [...] vaccines Last Documented On 9 2:51PM ; [facility] Discussed nutritional needs teach healthy choices including fruits and vegetables Last Documented On 9 9:29AM ; [facility] Patient education about a pr oper diet Last Documented On 9 9:29AM ; [facility] Discussed concerns about exe rcise : promote physical activity Last Documented On 9 9:29AM ; [facility] Work Phone: [phone]) 510-464103-27-2023 Instructions Includes: Instructions for all patient encounters Instructions to patient Intervention and counseling on cessation of tobacco use, 3-10 minutes Discussed medication and nicotine replacement for tobacco cessation Last Documented On 3 8:54AM ; [facility] Intervention and counseling on cessation of tobacco use, 3-10 minutes Discussed medication and nicotine replacement for tobacco cessation Last Documented On 2 1:56PM ; [facility] Intervention and counseling on cessation of tobacco use, 3-10 minutes Last Documented On 0 2:07PM ; [facility] Return to the clinic if cond ition worsens or new symptoms arise Last Documented On 9 1:59PM ; [facility] Intervention and counseling on cessation of tobacco use, 3-10 minutes Last Documented On 9 10:39AM ; [facility] Education and Decision Aids were provided during visit for: Discussed nutritional needs teach healthy choices including fruits and vegetables Last Documented On 3 8:32AM ; [facility] Patient education about a pr oper diet Last Documented On 3 8:32AM ; [facility] Discussed concerns about exe rcise : promote physical activity Last Documented On 3 8:32AM ; [facility] Discussed nutritional needs teach healthy choices including fruits and vegetables Last Documented On 3 11:28AM ; [facility] Patient education about a pr oper diet Last Documented On 3 11:28AM ; [facility] Discussed concerns about exe rcise : promote physical activity Last Documented On 3 11:28AM ; [facility] Discussed nutritional needs teach healthy choices including fruits and vegetables Last Documented On 2 2:01PM ; [facility] Patient education about a pr oper diet Last Documented On 2 2:01PM ; [facility] Discussed concerns about exe rcise : promote physical activity Last Documented On 2 2:01PM ; [facility] Discussed nutritional needs teach healthy choices including fruits and vegetables Last Documented On 2 2:11PM ; [facility] Patient education about a pr oper diet Last Documented On 2 2:11PM ; [facility] Discussed concerns about exe rcise : promote physical activity Last Documented On 2 2:11PM ; [facility] Discussed current self-care methods/coping skills. ~Validated and normalized pt's feelings while assisting patient process recent events. ~Discussed ongoing counseling. ~Discussed lifestyle changes to address chronic illness. ~Supported patient's personal health goals ~wordfinds. walk, read, eat, enjoy my best friesnd Last Documented On 2 5:54PM ; [facility] Discussed nutritional needs teach healthy choices including fruits and vegetables Last Documented On 2 10:04AM ; [facility] Patient education about a pr oper diet Last Documented On 2 10:04AM ; [facility] Discussed concerns about exe rcise : promote physical activity Last Documented On 2 10:04AM ; [facility] Discussed nutritional needs teach healthy choices including fruits and vegetables Last Documented On 2 1:25PM ; [facility] Patient education about a pr oper diet Last Documented On 2 1:25PM ; [facility] Discussed concerns about exe rcise : promote physical activity Last Documented On 2 1:25PM ; [facility] Discussed nutritional needs teach healthy choices including fruits and vegetables Last Documented On 1 10:08AM ; [facility] Patient education about a pr oper diet Last Documented On 1 10:08AM ; [facility] Discussed concerns about exe rcise : promote physical activity Last Documented On 1 10:08AM ; [facility] Discussed nutritional needs teach healthy choices including fruits and vegetables Last Documented On 1 1:12PM ; [facility] Patient education about a pr oper diet Last Documented On 1 1:12PM ; [facility] Patient education about a pr oper diet Last Documented On 1 1:30PM ; [facility] Patient education about meal planning Last Documented On 1 1:30PM ; [facility] Education about changing eat ing habits Last Documented On 1 1:30PM ; [facility] Patient education about high fiber diet Last Documented On 1 1:30PM ; [facility] Patient education about low fat diet Last Documented On 1 1:30PM ; [facility] Patient education about low cholesterol diet Last Documented On 1 1:30PM ; [facility] Patient education about low carbohydrate diet Last Documented On 1 1:30PM ; [facility] Patient education about high protein diet Last Documented On 1 1:30PM ; [facility] Discussed concerns about exe rcise : promote physical activity Last Documented On 1 1:12PM ; [facility] Education/counseling conduct ed by pharmacist Last Documented On 0 1:39PM ; [facility] Vaccination counseling Last Documented On 0 1:39PM ; [facility] Discussed concerns about exe rcise : promote physical activity Last Documented On 0 2:16PM ; [facility] Patient goals decrease short ness of breath episodes Last Documented On 0 2:11PM ; [facility] Patient states that she uses her rescue [...] recently Last Documented On 0 2:24PM ; [facility] Patient education about a pr oper diet Last Documented On 0 2:54PM ; [facility] Patient education about meal planning Last Documented On 0 2:54PM ; [facility] Education about changing eat ing habits Last Documented On 0 2:54PM ; [facility] Patient education about high fiber diet Last Documented On 0 2:54PM ; [facility] Patient education about low fat diet Last Documented On 0 2:54PM ; [facility] Patient education about low cholesterol diet Last Documented On 0 2:54PM ; [facility] Patient education about low carbohydrate diet Last Documented On 0 2:54PM ; [facility] Patient education about high protein diet Last Documented On 0 2:54PM ; [facility] Discussed nutritional needs teach healthy choices including fruits and vegetables Last Documented On 0 11:11AM ; [facility] Patient education about a pr oper diet Last Documented On 0 11:11AM ; [facility] Patient education about a pr oper diet Last Documented On 0 11:28AM ; [facility] Patient education about meal planning Last Documented On 0 11:28AM ; [facility] Education about changing eat ing habits Last Documented On 0 11:28AM ; [facility] Patient education about high fiber diet Last Documented On 0 11:28AM ; [facility] Patient education about low fat diet Last Documented On 0 11:28AM ; [facility] Patient education about low cholesterol diet Last Documented On 0 11:28AM ; [facility] Patient education about low carbohydrate diet Last Documented On 0 11:28AM ; [facility] Patient education about high protein diet Last Documented On 0 11:28AM ; [facility] Discussed concerns about exe rcise : promote physical activity Last Documented On 0 11:11AM ; [facility] Education/counseling conduct ed by pharmacist Last Documented On 0 1:41PM ; [facility] Patient states that she lonnie gonzalez has [...] own Last Documented On 0 2:08PM ; [facility] Education/counseling conduct ed by pharmacist Last Documented On 9 1:12PM ; [facility] Patient states that she lonnie gonzalez has issues with her inhaler with the spacer. Patient did not bring in inhaler or spacer. Patient was told to bring in inhalers at next scheduled visit for pharmacist to assess inhalation technique. Patient is agreeable Last Documented On 9 1:13PM ; [facility] Patient goals Start using ch deon to help with inhaling dulera Last Documented On 9 2:40PM ; [facility] Patient states that she is g etting [...] vaccines Last Documented On 9 2:51PM ; [facility] Discussed nutritional needs teach healthy choices including fruits and vegetables Last Documented On 9 9:29AM ; [facility] Patient education about a pr oper diet Last Documented On 9 9:29AM ; [facility] Discussed concerns about exe rcise : promote physical activity Last Documented On 9 9:29AM ; [facility] Work Phone: [phone]) 427-372803-27-2023 Instructions Includes: Instructions for all patient encounters Instructions to patient Intervention and counseling on cessation of tobacco use, 3-10 minutes Discussed medication and nicotine replacement for tobacco cessation Last Documented On 3 8:54AM ; [facility] Intervention and counseling on cessation of tobacco use, 3-10 minutes Discussed medication and nicotine replacement for tobacco cessation Last Documented On 2 1:56PM ; [facility] Intervention and counseling on cessation of tobacco use, 3-10 minutes Last Documented On 0 2:07PM ; [facility] Return to the clinic if cond ition worsens or new symptoms arise Last Documented On 9 1:59PM ; [facility] Intervention and counseling on cessation of tobacco use, 3-10 minutes Last Documented On 9 10:39AM ; [facility] Education and Decision Aids were provided during visit for: Discussed nutritional needs teach healthy choices including fruits and vegetables Last Documented On 3 8:32AM ; [facility] Patient education about a pr oper diet Last Documented On 3 8:32AM ; [facility] Discussed concerns about exe rcise : promote physical activity Last Documented On 3 8:32AM ; [facility] Discussed nutritional needs teach healthy choices including fruits and vegetables Last Documented On 3 11:28AM ; [facility] Patient education about a pr oper diet Last Documented On 3 11:28AM ; [facility] Discussed concerns about exe rcise : promote physical activity Last Documented On 3 11:28AM ; [facility] Discussed nutritional needs teach healthy choices including fruits and vegetables Last Documented On 2 2:01PM ; [facility] Patient education about a pr oper diet Last Documented On 2 2:01PM ; [facility] Discussed concerns about exe rcise : promote physical activity Last Documented On 2 2:01PM ; [facility] Discussed nutritional needs teach healthy choices including fruits and vegetables Last Documented On 2 2:11PM ; [facility] Patient education about a pr oper diet Last Documented On 2 2:11PM ; [facility] Discussed concerns about exe rcise : promote physical activity Last Documented On 2 2:11PM ; [facility] Discussed current self-care methods/coping skills. ~Validated and normalized pt's feelings while assisting patient process recent events. ~Discussed ongoing counseling. ~Discussed lifestyle changes to address chronic illness. ~Supported patient's personal health goals ~wordfinds. walk, read, eat, enjoy my best friesnd Last Documented On 2 5:54PM ; [facility] Discussed nutritional needs teach healthy choices including fruits and vegetables Last Documented On 2 10:04AM ; [facility] Patient education about a pr oper diet Last Documented On 2 10:04AM ; [facility] Discussed concerns about exe rcise : promote physical activity Last Documented On 2 10:04AM ; [facility] Discussed nutritional needs teach healthy choices including fruits and vegetables Last Documented On 2 1:25PM ; [facility] Patient education about a pr oper diet Last Documented On 2 1:25PM ; [facility] Discussed concerns about exe rcise : promote physical activity Last Documented On 2 1:25PM ; [facility] Discussed nutritional needs teach healthy choices including fruits and vegetables Last Documented On 1 10:08AM ; [facility] Patient education about a pr oper diet Last Documented On 1 10:08AM ; [facility] Discussed concerns about exe rcise : promote physical activity Last Documented On 1 10:08AM ; [facility] Discussed nutritional needs teach healthy choices including fruits and vegetables Last Documented On 1 1:12PM ; [facility] Patient education about a pr oper diet Last Documented On 1 1:12PM ; [facility] Patient education about a pr oper diet Last Documented On 1 1:30PM ; [facility] Patient education about meal planning Last Documented On 1 1:30PM ; [facility] Education about changing eat ing habits Last Documented On 1 1:30PM ; [facility] Patient education about high fiber diet Last Documented On 1 1:30PM ; [facility] Patient education about low fat diet Last Documented On 1 1:30PM ; [facility] Patient education about low cholesterol diet Last Documented On 1 1:30PM ; [facility] Patient education about low carbohydrate diet Last Documented On 1 1:30PM ; [facility] Patient education about high protein diet Last Documented On 1 1:30PM ; [facility] Discussed concerns about exe rcise : promote physical activity Last Documented On 1 1:12PM ; [facility] Education/counseling conduct ed by pharmacist Last Documented On 0 1:39PM ; [facility] Vaccination counseling Last Documented On 0 1:39PM ; [facility] Discussed concerns about exe rcise : promote physical activity Last Documented On 0 2:16PM ; [facility] Patient goals decrease short ness of breath episodes Last Documented On 0 2:11PM ; [facility] Patient states that she uses her rescue [...] recently Last Documented On 0 2:24PM ; [facility] Patient education about a pr oper diet Last Documented On 0 2:54PM ; [facility] Patient education about meal planning Last Documented On 0 2:54PM ; [facility] Education about changing eat ing habits Last Documented On 0 2:54PM ; [facility] Patient education about high fiber diet Last Documented On 0 2:54PM ; [facility] Patient education about low fat diet Last Documented On 0 2:54PM ; [facility] Patient education about low cholesterol diet Last Documented On 0 2:54PM ; [facility] Patient education about low carbohydrate diet Last Documented On 0 2:54PM ; [facility] Patient education about high protein diet Last Documented On 0 2:54PM ; [facility] Discussed nutritional needs teach healthy choices including fruits and vegetables Last Documented On 0 11:11AM ; [facility] Patient education about a pr oper diet Last Documented On 0 11:11AM ; [facility] Patient education about a pr oper diet Last Documented On 0 11:28AM ; [facility] Patient education about meal planning Last Documented On 0 11:28AM ; [facility] Education about changing eat ing habits Last Documented On 0 11:28AM ; [facility] Patient education about high fiber diet Last Documented On 0 11:28AM ; [facility] Patient education about low fat diet Last Documented On 0 11:28AM ; [facility] Patient education about low cholesterol diet Last Documented On 0 11:28AM ; [facility] Patient education about low carbohydrate diet Last Documented On 0 11:28AM ; [facility] Patient education about high protein diet Last Documented On 0 11:28AM ; [facility] Discussed concerns about exe rcise : promote physical activity Last Documented On 0 11:11AM ; [facility] Education/counseling conduct ed by pharmacist Last Documented On 0 1:41PM ; [facility] Patient states that she lonnie gonzalez has [...] own Last Documented On 0 2:08PM ; [facility] Education/counseling conduct ed by pharmacist Last Documented On 9 1:12PM ; [facility] Patient states that she lonnie gonzalez has issues with her inhaler with the spacer. Patient did not bring in inhaler or spacer. Patient was told to bring in inhalers at next scheduled visit for pharmacist to assess inhalation technique. Patient is agreeable Last Documented On 9 1:13PM ; [facility] Patient goals Start using ch deon to help with inhaling dulera Last Documented On 9 2:40PM ; [facility] Patient states that she is g etting [...] vaccines Last Documented On 9 2:51PM ; [facility] Discussed nutritional needs teach healthy choices including fruits and vegetables Last Documented On 9 9:29AM ; [facility] Patient education about a pr oper diet Last Documented On 9 9:29AM ; [facility] Discussed concerns about exe rcise : promote physical activity Last Documented On 9 9:29AM ; [facility] Work Phone: [phone]) 738-430201-16-2023 Progress note* Progress note Date Encounter Last Documented by 06/18/2022 Medical Established Patient Last documented on 06/18/2022; 12:11 PM, Karla Clark CNP; [facility] Active Problems & Conditions - R94.31 - [...] been COVID tested last Saturday at the [facility] and was negative. Ear issues started [...] tablet by mouth twice a day DR GALICIA, 0 days, 0 refills - Benztropine Mesylate 0.5 MG Oral Tablet Take 1 tablet by mouth twice a day DR GALICIA, 0 days, 0 refills - Calcium 600+D [...] EVERY DAY, 30 days, 11 refills - [place] Carbonate 300MG Oral Tablet 300 MG take [...] Bipolar disorder NOS Depression Heart Attack 03/2021 [facility]. Surgical: - Hysterectomy Social History Environmental Exposure: [...] BP-Sitting L125/78 mmHg BP Cuff SizeRegular Pulse Rate-Addazfp02 bpm Temp-Llsjsxid93.6 F Scvpod02 in Ostrkw087 lbs 3.2 oz Body Mass Index24.9 kg/m2 Body Surface Area1.7 m2 Oxygen Rrixjljpmg40 % General Appearance: - Awake. - Alert. [...] needed clothing: No, unable to get needed children's ministries director: No, unable to get needed phone: No, [...] 60 years or older (3 points) [Pre-DM]. [facility]01-16-2023 Instructions Includes: Instructions for all patient encounters Instructions to patient Intervention and counseling on cessation of tobacco use, 3-10 minutes Discussed medication and nicotine replacement for tobacco cessation Last Documented On 2 1:56PM ; [facility] Intervention and counseling on cessation of tobacco use, 3-10 minutes Last Documented On 0 2:07PM ; [facility] Return to the clinic if cond ition worsens or new symptoms arise Last Documented On 9 1:59PM ; [facility] Intervention and counseling on cessation of tobacco use, 3-10 minutes Last Documented On 9 10:39AM ; [facility] Education and Decision Aids were provided during visit for: Discussed nutritional needs teach healthy choices including fruits and vegetables Last Documented On 3 11:28AM ; [facility] Patient education about a pr oper diet Last Documented On 3 11:28AM ; [facility] Discussed concerns about exe rcise : promote physical activity Last Documented On 3 11:28AM ; [facility] Discussed nutritional needs teach healthy choices including fruits and vegetables Last Documented On 2 2:01PM ; [facility] Patient education about a pr oper diet Last Documented On 2 2:01PM ; [facility] Discussed concerns about exe rcise : promote physical activity Last Documented On 2 2:01PM ; [facility] Discussed nutritional needs teach healthy choices including fruits and vegetables Last Documented On 2 2:11PM ; [facility] Patient education about a pr oper diet Last Documented On 2 2:11PM ; [facility] Discussed concerns about exe rcise : promote physical activity Last Documented On 2 2:11PM ; [facility] Discussed current self-care methods/coping skills. ~Validated and normalized pt's feelings while assisting patient process recent events. ~Discussed ongoing counseling. ~Discussed lifestyle changes to address chronic illness. ~Supported patient's personal health goals ~wordfinds. walk, read, eat, enjoy my best friesnd Last Documented On 2 5:54PM ; [facility] Discussed nutritional needs teach healthy choices including fruits and vegetables Last Documented On 2 10:04AM ; [facility] Patient education about a pr oper diet Last Documented On 2 10:04AM ; [facility] Discussed concerns about exe rcise : promote physical activity Last Documented On 2 10:04AM ; [facility] Discussed nutritional needs teach healthy choices including fruits and vegetables Last Documented On 2 1:25PM ; [facility] Patient education about a pr oper diet Last Documented On 2 1:25PM ; [facility] Discussed concerns about exe rcise : promote physical activity Last Documented On 2 1:25PM ; [facility] Discussed nutritional needs teach healthy choices including fruits and vegetables Last Documented On 1 10:08AM ; [facility] Patient education about a pr oper diet Last Documented On 1 10:08AM ; [facility] Discussed concerns about exe rcise : promote physical activity Last Documented On 1 10:08AM ; [facility] Discussed nutritional needs teach healthy choices including fruits and vegetables Last Documented On 1 1:12PM ; [facility] Patient education about a pr oper diet Last Documented On 1 1:12PM ; [facility] Patient education about a pr oper diet Last Documented On 1 1:30PM ; [facility] Patient education about meal planning Last Documented On 1 1:30PM ; [facility] Education about changing eat ing habits Last Documented On 1 1:30PM ; [facility] Patient education about high fiber diet Last Documented On 1 1:30PM ; [facility] Patient education about low fat diet Last Documented On 1 1:30PM ; [facility] Patient education about low cholesterol diet Last Documented On 1 1:30PM ; [facility] Patient education about low carbohydrate diet Last Documented On 1 1:30PM ; [facility] Patient education about high protein diet Last Documented On 1 1:30PM ; [facility] Discussed concerns about exe rcise : promote physical activity Last Documented On 1 1:12PM ; [facility] Education/counseling conduct ed by pharmacist Last Documented On 0 1:39PM ; [facility] Vaccination counseling Last Documented On 0 1:39PM ; [facility] Discussed concerns about exe rcise : promote physical activity Last Documented On 0 2:16PM ; [facility] Patient goals decrease short ness of breath episodes Last Documented On 0 2:11PM ; [facility] Patient states that she uses her rescue [...] recently Last Documented On 0 2:24PM ; [facility] Patient education about a pr oper diet Last Documented On 0 2:54PM ; [facility] Patient education about meal planning Last Documented On 0 2:54PM ; [facility] Education about changing eat ing habits Last Documented On 0 2:54PM ; [facility] Patient education about high fiber diet Last Documented On 0 2:54PM ; [facility] Patient education about low fat diet Last Documented On 0 2:54PM ; [facility] Patient education about low cholesterol diet Last Documented On 0 2:54PM ; [facility] Patient education about low carbohydrate diet Last Documented On 0 2:54PM ; [facility] Patient education about high protein diet Last Documented On 0 2:54PM ; [facility] Discussed nutritional needs teach healthy choices including fruits and vegetables Last Documented On 0 11:11AM ; [facility] Patient education about a pr oper diet Last Documented On 0 11:11AM ; [facility] Patient education about a pr oper diet Last Documented On 0 11:28AM ; [facility] Patient education about meal planning Last Documented On 0 11:28AM ; [facility] Education about changing eat ing habits Last Documented On 0 11:28AM ; [facility] Patient education about high fiber diet Last Documented On 0 11:28AM ; [facility] Patient education about low fat diet Last Documented On 0 11:28AM ; [facility] Patient education about low cholesterol diet Last Documented On 0 11:28AM ; [facility] Patient education about low carbohydrate diet Last Documented On 0 11:28AM ; [facility] Patient education about high protein diet Last Documented On 0 11:28AM ; [facility] Discussed concerns about exe rcise : promote physical activity Last Documented On 0 11:11AM ; [facility] Education/counseling conduct ed by pharmacist Last Documented On 0 1:41PM ; [facility] Patient states that she lonnie gonzalez has [...] own Last Documented On 0 2:08PM ; [facility] Education/counseling conduct ed by pharmacist Last Documented On 9 1:12PM ; [facility] Patient states that she lonnie gonzalez has issues with her inhaler with the spacer. Patient did not bring in inhaler or spacer. Patient was told to bring in inhalers at next scheduled visit for pharmacist to assess inhalation technique. Patient is agreeable Last Documented On 9 1:13PM ; [facility] Patient goals Start using ch deon to help with inhaling dulera Last Documented On 9 2:40PM ; [facility] Patient states that she is g etting [...] vaccines Last Documented On 9 2:51PM ; [facility] Discussed nutritional needs teach healthy choices including fruits and vegetables Last Documented On 9 9:29AM ; [facility] Patient education about a pr oper diet Last Documented On 9 9:29AM ; [facility] Discussed concerns about exe rcise : promote physical activity Last Documented On 9 9:29AM ; [facility] Work Phone: 1(701) 239-553310-18-2022 Evaluation note Includes: Assessments for all patient encounters Findings Encounter Date Bipolar disorder NOS Established Pita ent with Yin Boswells [facility] 03/20/2022 Schizoaffective disorder Established [facility]/2022 No cough Medical Established Patient with Karla Clark [facility] 12/20/2021 Visit for: screening for hum an immunodeficiency virus Medical Established Patient with Karla Clark [employer] INSPECT[employer] 12/20/2021 Z68.24 - Body mass index [BM I] 24.0-24.9, adult Medical Established Patient with Karla Amber [facility] 12/20/2021 Bipolar disorder NOS Established Pita ent with Yinluis Feliz [facility] 11/03/2021 Bipolar schizoaffective disorder BH Esta blished Patient with Yin Feliz [facility] 11/03/2021 PLAN Medical Established Patient with Don Pino MD 11/03/2021 Abnormal electrocardiogram Medical Estab lished Patient with Don Pino MD 11/03/2021 Z68.24 - Body mass index [BM I] 24.0-24.9, adult Medical Established Patient with Don Pino MD 11/03/2021 Cough Medical Established Patient with Karla Clark [facility] 07/28/2021 Intervention and counseling on cessation of tobacco use, 3-10 minutes Discussed medication and nicotine replacement for tobacco cessation Medical Established Patient with Karla Clark [facility] 07/28/2021 Nicotine dependence Medical Established Patient with Karla Clark [facility] 07/28/2021 Z68.24 - Body mass index [BM I] 24.0-24.9, adult Medical Established Patient with Karla Clark [facility] 07/28/2021 Assess Colon screening Medical Establish ed Patient with Karla Clark [facility] 05/08/2021 Diabetes Risk Test Score was four score 05/08/2021 Medical Established Patient with Karla Clark [facility] 05/08/2021 Routine adult history and ph ysical (18-64 yrs) without abnormal findings Medical Established Patient with Karla Clark [facility] 05/08/2021 Z68.24 - Body mass index [BM I] 24.0-24.9, adult [facility] Z68.24 - Body mass index [BM I] 24.0-24.9, adult Medical Established Patient with Karla Clark [facility] 06/17/2020 Overweight Medical Established Patient with Karlajulius Clark [facility] 06/06/2020 Z68.25 - Body mass index [BM I] 25.0-25.9, adult [facility] Antiasthmatics [facility] w with [facility] 05/06/2020 Assessment of tobacco use CPS Asthma Cli yash-New with [facility] 05/06/2020 Body mass index CPS [facility]-Ne w with [facility] 05/06/2020 Chronic obstructive pulmonary disease CP S [facility]hma Clinic-New with [facility] 05/06/2020 Overweight [facility]PS [facility] Clinic-Ne w with [facility] 05/06/2020 Z11.4 - Encounter for screen ing for human immunodeficiency virus [HIV] [facility]-New with [facility] 05/06/2020 Diabetes Risk Test Score was three score 03/31/2020 Medical Established Patient with [facility] 03/31/2020 Overweight Medical Established Patient with [facility] 03/31/2020 Z68.25 - Body mass index [BM I] 25.0-25.9, adult Medical Established Patient with Karla Clark [employer]ER INSPECTOR 03/31/2020 Encounter for Immunization Nurse Visit with Gary mary anne Amber [employer] 03/14/2020 Body mass index Medical Established Patient with Karla Amber [employer] 02/26/2020 Overweight Medical Established Patient with Karla Floresen [employer] INSPECTOR 02/26/2020 Overweight Medical Established Patient with Karla Floresen [employer] 07/23/2019 Z68.27 - Body mass index (BM I) 27.0-27.9, adult Medical Established Patient with Karla Amber [employer] INSPECTOR 07/23/2019 Occasional asthma CPS- Asthma Clinic- F/U with Karla Amber [employer] INSPECTOR 06/05/2019 Overweight CPS- Asthma Clinic- F/U with Karla Amber [employer] 06/05/2019 Z68.27 - Body mass index (BM I) 27.0-27.9 adult CPS- Asthma Clinic- F/U with Karla Amber [facility] 06/05/2019 Occasional asthma CPS Med Review with Karla Amber [facility] 04/23/2019 Overweight CPS Med Review with Karla Amber [facility] 04/23/2019 Z68.27 - Body mass index (BM I) 27.0-27.9 adult CPS Med Review with Karla Clark [facility] 04/23/2019 Acute pharyngitis Medical Established Patient with Brandy Serranoer [facility] 04/15/2019 Asthmatic bronchitis with ac cahto exacerbation Medical Established Patient with Brandy Kelley [facility] 04/15/2019 Fagerstrom Score was two Medical Establi shed Patient with Brandy Serranoer [facility] 04/15/2019 PHQ-9: total score was three 04/15/2019 Medical Established Patient with Brandy Serranoer [facility] 04/15/2019 Body mass index Medical Established Patient with Karla Clark [facility] 03/05/2019 Diabetes Risk Test Score was three score Medical Established Patient with Karla Ambre [facility] 03/05/2019 Overweight Medical Established Patient with Karla Amber [facility] 03/05/2019 Z68.28 - Body mass index (BM I) 28.0-28.9, adult Medical Established Patient with Karla Clark UPPER INSPECTOR 12/22/2018 Assess routine adult history and physical (18 - 64 yrs) Medical Established Patient with Karla Amber [employer]PPER INSPECTOR 11/06/2018 Overweight Medical Established Patient with Karla Amber [employer]PPER INSPECTOR 11/06/2018 Z68.28 - Body mass index (BM I) 28.0-28.9, adult Medical Established Patient with Karlajulius Clark [employer] INSPECTOR 11/06/2018 Assess dysphagia Medical Established Patient with Karla Amber [employer] INSPECTOR 09/11/2018 Assess routine adult history and physical (18 - 64 yrs) Medical Established Patient with Karla Amber [employer] INSPECTOR 09/11/2018 Assess primary insomnia with sleep apnea Medical Established Patient with Karlajulius Clark [employer] INSPECTOR 09/04/2018 Assess routine adult history and physical (18 - 64 yrs) Medical Established Patient with Karla Amber [employer] INSPECTOR 09/04/2018 Overweight Medical Established Patient with Karla Amber [employer] INSPECTOR 09/04/2018 Z68.29 - Body mass index (BM I) 29.0-29.9, adult Medical Established Patient with Karla Amber [employer] INSPECT[employer] 09/04/2018 Assess vaginal candidiasis Medical Estab lished Patient with Karla Amber UPPER INSPECTOR 07/31/2018 [facility] Work Phone: 1(255) 979-229110-18-2022 Evaluation note Includes: Assessments for all patient encounters Findings Encounter Date Schizoaffective disorder BH Established Patient with Yin Feliz [facility] 03/20/2022 No cough Medical Established Patient with Karlajulius Floresen [employer] INSPECTOR 12/20/2021 Visit for: screening for hum an immunodeficiency virus Medical Established Patient with Karla Amber [employer]PPER INSPECTOR 12/20/2021 Z68.24 - Body mass index [BM I] 24.0-24.9, adult Medical Established Patient with Karla Amber [employer] INSPECTOR 12/20/2021 Bipolar disorder NOS BH Established Pita [...] dependence Medical Established Patient with Karla Amber [facility] 07/28/2021 Z68.24 - Body mass index [BM I] 24.0-24.9, adult Medical Established Patient with Karla Clark [facility] 07/28/2021 Assess Colon screening Medical Establish ed Patient with Karla Clark [facility] 05/08/2021 Diabetes Risk Test Score was four score 05/08/2021 Medical Established Patient with Karla Clark [facility] 05/08/2021 Routine adult history and ph ysical (18-64 yrs) without abnormal findings Medical Established Patient with Karla Clark [facility] 05/08/2021 Z68.24 - Body mass index [BM I] 24.0-24.9, adult Medical Established Patient with Karla Clark [facility] 05/08/2021 Z68.24 - Body mass index [BM I] 24.0-24.9, adult Medical Established Patient with Karla Clark [facility] 06/17/2020 Overweight Medical Established Patient with Karla Clark [facility] 06/06/2020 Z68.25 - Body mass index [BM I] 25.0-25.9, adult Medical Established Patient with Karla Clark [facility] 06/06/2020 Antiasthmatics [facility]-Ne w with Karla Amber [facility] 05/06/2020 Assessment of tobacco use CPS Asthma Cli yash-New with Karlajulius Floresen [facility] 05/06/2020 Body mass index CPS Asthma Clinic-Ne w with Karlajulius Floresen [facility] 05/06/2020 Chronic obstructive pulmonary disease CP S Asthma Clinic-New with [facility] 05/06/2020 Overweight [facility]PS [facility] Clinic-Ne w with Karla Amber [facility] 05/06/2020 Z11.4 - Encounter for screen ing for human immunodeficiency virus [HIV] [facility] Diabetes Risk Test Score was three score 03/31/2020 Medical Established Patient with Karla Floresen [facility] 03/31/2020 Overweight Medical Established Patient with Karla Clark [facility] 03/31/2020 Z68.25 - Body mass index [BM I] 25.0-25.9, adult Medical Established Patient with Karla Clark [facility] 03/31/2020 Encounter for Immunization Nurse Visit with GaryNicolasa [facility] 03/14/2020 Body mass index Medical Established Patient with Karla Amber [facility] 02/26/2020 Overweight Medical Established Patient with Karla Clark [facility] 02/26/2020 Overweight Medical Established Patient with Karlajulius Floresen [employer]OR 07/23/2019 Z68.27 - Body mass index (BM I) 27.0-27.9, adult Medical Established Patient with Karlajulius Floresen [employer] INSPECTOR 07/23/2019 Occasional asthma CPS- Asthma Clinic- F/U with Karlajulius Floresen [employer] INSPECTOR 06/05/2019 Overweight CPS- Asthma Clinic- F/U with Karlajulius Floresen UPP[employer] INSPECTOR 06/05/2019 Z68.27 - Body mass index (BM I) 27.0-27.9 adult CPS- Asthma Clinic- F/U with Karlajulius Floresen [employer] INSPECTOR 06/05/2019 Occasional asthma CPS Med Review with Karlajulius Clark [facility] 04/23/2019 Overweight CPS Med Review with Karlajulius Clark [facility] 04/23/2019 Z68.27 - Body mass index (BM I) 27.0-27.9 adult CPS Med Review with Karlajulius Clark [facility] 04/23/2019 Acute pharyngitis Medical Established Patient with Brandy Serranoer [facility] 04/15/2019 Asthmatic bronchitis with ac cahto exacerbation Medical Established Patient with Brandy Serranoer [facility] 04/15/2019 Fagerstrom Score was two Medical Establi shed Patient with Brandy Warren [facility] 04/15/2019 PHQ-9: total score was three 04/15/2019 Medical Established Patient with Brandy Warren [facility] 04/15/2019 Body mass index Medical Established Patient with Karla Clark [facility] 03/05/2019 Diabetes Risk Test Score was three score Medical Established Patient with Karla Clark [facility] 03/05/2019 Overweight Medical Established Patient with Karla Floresen [facility] 03/05/2019 Z68.28 - Body mass index (BM I) 28.0-28.9, adult Medical Established Patient with Karla Clark [facility] 12/22/2018 Assess routine adult history and physical (18 - 64 yrs) Medical Established Patient with Karla Clark UPPER INSPECTOR 11/06/2018 Overweight Medical Established Patient with Karlajulius Floresen [employer]PPER INSPECTOR 11/06/2018 Z68.28 - Body mass index (BM I) 28.0-28.9, adult Medical Established Patient with Karlajulius Floresen [employer]PPER INSPECTOR 11/06/2018 Assess dysphagia Medical Established Patient with Karla Floresen [facility] 09/11/2018 Assess routine adult history and physical (18 - 64 yrs) Medical Established Patient with Karlajulius Floresen [facility] 09/11/2018 Assess primary insomnia with sleep apnea Medical Established Patient with Karla Clark UPPER INSPECTOR 09/04/2018 Assess routine adult history and physical (18 - 64 yrs) Medical Established Patient with Karla Clark UPPER INSPECTOR 09/04/2018 Overweight Medical Established Patient with Karla Clark CNP 09/04/2018 Z68.29 - Body mass index (BM I) 29.0-29.9, adult Medical Established Patient with Karla Clark CNP 09/04/2018 Assess vaginal candidiasis Medical Estab lished Patient with Karla Clark UPPER INSPECTOR 07/31/2018 [facility] Work Phone: 1([phone]) 744-270410-18-2022 History general Narrative - Reported Includes: Medical History in patient's chart Description Last Updated No previous hospitalizations 03/20/2022 Currently nursing 11/03/2021 [facility] status unknown for sexually tra nsmitted infection 11/03/2021 11/03/2021 Not planning to have a baby in the next 12 months 11/03/2021 Heart Attack 03/2021 [facility] 1 07/09/2020 A recent immunization for flu 05/06/2020 Patient gave verbal consent for teleUnBuyThat 08/31/2019 History of abnormal electrocardiogram History of asthma 07/31/2018 History of cardiovascular disorder 07/31 History of respiratory disorder 07/31/19 19 History of bipolar disorder NOS 07/31/19 19 History of depression 07/31/2018 History of psychiatric disorders 019 [facility] Work Phone: 1(498) 688-210310-18-2022 History general Narrative - Reported Includes: Medical History in patient's chart Description Last Updated No previous hospitalizations 03/20/2022 Last Documented On 2 2:28PM ; [facility] Currently nursing 11/03/2021 Last Documented On 2 7:00PM ; [facility] status unknown for sexually tra nsmitted infection 11/03/2021 Last Documented On 2 7:00PM ; [facility] 11/03/2021 Last Documented On 2 7:00PM ; [facility] Not planning to have a baby in the next 12 months 11/03/2021 Last Documented On 2 7:00PM ; [facility] Heart Attack 03/2021 [facility] 1 07/09/2020 Last Documented On 1 10:59AM ; [facility] A recent immunization for flu 05/06/2020 Last Documented On 0 7:27PM ; [facility] Patient gave verbal consent for teleheal th 08/31/2019 Last Documented On 0 9:21AM ; [facility] [facility] of abnormal electrocardiogram Last Documented On 9 2:12PM ; [facility] History of asthma 07/31/2018 Last Documented On 9 2:12PM ; [facility] History of cardiovascular disorder 07/31 Last Documented On 9 2:12PM ; [facility] History of respiratory disorder 07/31/19 19 Last Documented On 9 2:12PM ; [facility] History of bipolar disorder NOS 07/31/19 19 Last Documented On 9 2:12PM ; [facility] History of depression 07/31/2018 Last Documented On 9 2:12PM ; [facility] History of psychiatric disorders 019 Last Documented On 9 2:12PM ; [facility] Work Phone: 1(141) 932-272610-18-2022 History general Narrative - Reported Includes: Medical History in patient's chart Description Last Updated No previous hospitalizations 03/20/2022 Last Documented On 2 2:28PM ; [facility] Currently nursing 11/03/2021 Last Documented On 2 7:00PM ; [facility] status unknown for sexually tra nsmitted infection 11/03/2021 Last Documented On 2 7:00PM ; [facility] 11/03/2021 Last Documented On 2 7:00PM ; [facility] Not planning to have a baby in the next 12 months 11/03/2021 Last Documented On 2 7:00PM ; [facility] Heart Attack 03/2021 [facility] 1 07/09/2020 Last Documented On 1 10:59AM ; [facility] A recent immunization for flu 05/06/2020 Last Documented On 0 7:27PM ; [facility] Patient gave verbal consent for teleheal th 08/31/2019 Last Documented On 0 9:21AM ; [facility] History of abnormal electrocardiogram Last Documented On 9 2:12PM ; [facility] History of asthma 07/31/2018 Last Documented On 9 2:12PM ; [facility] History of cardiovascular disorder 07/31 Last Documented On 9 2:12PM ; [facility] History of respiratory disorder 07/31/19 19 Last Documented On 9 2:12PM ; [facility] History of bipolar disorder NOS 07/31/19 19 Last Documented On 9 2:12PM ; [facility] History of depression 07/31/2018 Last Documented On 9 2:12PM ; [facility] History of psychiatric disorders 019 Last Documented On 9 2:12PM ; [facility] Work Phone: 1(257) 187-549610-18-2022 History general Narrative - Reported Includes: Medical History in patient's chart Description Last Updated No previous hospitalizations 03/20/2022 Last Documented On 2 2:28PM ; [facility] Currently nursing 11/03/2021 Last Documented On 2 7:00PM ; [facility] status unknown for sexually tra nsmitted infection 11/03/2021 Last Documented On 2 7:00PM ; [facility] 11/03/2021 Last Documented On 2 7:00PM ; [facility] Not planning to have a baby in the next 12 months 11/03/2021 Last Documented On 2 7:00PM ; [facility] Heart Attack 03/2021 [facility] 1 07/09/2020 Last Documented On 1 10:59AM ; [facility] A recent immunization for flu 05/06/2020 Last Documented On 0 7:27PM ; [facility] Patient gave verbal consent for teleheal th 08/31/2019 Last Documented On 0 9:21AM ; [facility] History of abnormal electrocardiogram Last Documented On 9 2:12PM ; [facility] History of asthma 07/31/2018 Last Documented On 9 2:12PM ; [facility] History of cardiovascular disorder 07/31 Last Documented On 9 2:12PM ; [facility] History of respiratory disorder 07/31/19 19 Last Documented On 9 2:12PM ; [facility] History of bipolar disorder NOS 07/31/19 19 Last Documented On 9 2:12PM ; [facility] History of depression 07/31/2018 Last Documented On 9 2:12PM ; [facility] History of psychiatric disorders 019 Last Documented On 9 2:12PM ; [facility] Work Phone: 1([phone]) 143-275510-18-2022 History general Narrative - Reported Includes: Medical History in patient's chart Description Last Updated No previous hospitalizations 03/20/2022 Last Documented On 2 2:28PM ; [facility] Currently nursing 11/03/2021 Last Documented On 2 7:00PM ; [facility] status unknown for sexually tra nsmitted infection 11/03/2021 Last Documented On 2 7:00PM ; [facility] 11/03/2021 Last Documented On 2 7:00PM ; [facility] Not planning to have a baby in the next 12 months 11/03/2021 Last Documented On 2 7:00PM ; [facility] Heart Attack 03/2021 [facility] 1 07/09/2020 Last Documented On 1 10:59AM ; [facility] A recent immunization for flu 05/06/2020 Last Documented On 0 7:27PM ; [facility] Patient gave verbal consent for teleheal th 08/31/2019 Last Documented On 0 9:21AM ; [facility] History of abnormal electrocardiogram Last Documented On 9 2:12PM ; [facility] History of asthma 07/31/2018 Last Documented On 9 2:12PM ; [facility] History of cardiovascular disorder 07/31 Last Documented On 9 2:12PM ; [facility] History of respiratory disorder 07/31/19 19 Last Documented On 9 2:12PM ; [facility] History of bipolar disorder NOS 07/31/19 19 Last Documented On 9 2:12PM ; [facility] History of depression 07/31/2018 Last Documented On 9 2:12PM ; [facility] History of psychiatric disorders 019 Last Documented On 9 2:12PM ; [facility] Work Phone: 1(119) 238-208210-04-2022 History of Present illness Narrative* Soni Sosa - 03/06/2022 1:00 PM EDT Explained policies and procedure of an echocardiogram/Doppler study. [facility] Work Phone: 1(753) 768-508407-20-2022 Evaluation note Includes: Assessments for all patient encounters Findings Encounter Date No cough Medical Established Patient with Karla Clark [employer]PPER INSPECTOR 12/20/2021 Visit for: screening for hum an immunodeficiency virus Medical Established Patient with Karla Clark UPPER INSPECTOR 12/20/2021 Z68.24 - Body mass index [BM I] 24.0-24.9, adult Medical Established Patient with Karla Clark UPPER INSPECTOR 12/20/2021 Bipolar disorder NOS Establ[facility]/03/2021 Bipolar schizoaffective disorder BH Esta blished [...] cessation Medical Established Patient with Karla Amber UPPER INSPECTOR 07/28/2021 Nicotine dependence Medical Established Patient with Karla Amber [facility] 07/28/2021 Z68.24 - Body mass index [BM I] 24.0-24.9, adult Medical Established Patient with Karla Amber UPPER INSPECTOR 07/28/2021 Assess Colon screening Medical Establish ed Patient with Karla Amber UPPER INSPECTOR 05/08/2021 Diabetes Risk Test Score was four score 05/08/2021 Medical Established Patient with Karla Clark [facility] 05/08/2021 Routine adult history and ph ysical (18-64 yrs) without abnormal findings Medical Established Patient with Karla Floresen [facility] 05/08/2021 Z68.24 - Body mass index [BM I] 24.0-24.9, adult Medical Established Patient with Karla Clark [facility] 05/08/2021 Z68.24 - Body mass index [BM I] 24.0-24.9, adult Medical Established Patient with Karla Amber [facility] 06/17/2020 Overweight Medical Established Patient with Karla Amber [facility] 06/06/2020 Z68.25 - Body mass index [BM I] 25.0-25.9, adult Medical Established Patient with Karla Amber [employer]PPER INSPECTOR 06/06/2020 Antiasthmatics CPS Asthma Clinic-Ne w with Karla Clark [facility] 05/06/2020 Assessment of tobacco use CPS Asthma Cli yash-New with Karlajulius Clark UPPER INSPECTOR 05/06/2020 Body mass index CPS Asthma Clinic-Ne w with Karlajulius Clark UPPER INSPECTOR 05/06/2020 Chronic obstructive pulmonary disease CP S Asthma Clinic-New with Karlajulius Clark UPPER INSPECTOR 05/06/2020 Overweight CPS Asthma Clinic-Ne w with Karlajulius Clark [facility] 05/06/2020 Z11.4 - Encounter for screen ing for human immunodeficiency virus [HIV] CPS Asthma Clinic-New with Karla Clark [facility] 05/06/2020 Diabetes Risk Test Score was three score 03/31/2020 Medical Established Patient with Karla Floresen [facility] 03/31/2020 Overweight Medical Established Patient with Karla Clark [facility] 03/31/2020 Z68.25 - Body mass index [BM I] 25.0-25.9, adult Medical Established Patient with Karla Floresen [facility] 03/31/2020 Encounter for Immunization Nurse Visit with Gary Clark [facility] 03/14/2020 Body mass index Medical Established Patient with Karla Floresen [facility] 02/26/2020 Overweight Medical Established Patient with Karla Floresen [facility] 02/26/2020 Overweight Medical Established Patient with Karla Floresen [facility] 07/23/2019 Z68.27 - Body mass index (BM I) 27.0-27.9, adult Medical Established Patient with Karla Floresen [facility] 07/23/2019 Occasional asthma CPS- Asthma Clinic- F/U with Karla Amber [facility] 06/05/2019 Overweight CPS- Asthma Clinic- F/U with Karlajulius Floresen [facility] 06/05/2019 Z68.27 - Body mass index (BM I) 27.0-27.9 adult CPS- Asthma Clinic- F/U with Karla Floresen [facility] 06/05/2019 Occasional asthma CPS Med Review with Karla Amber [facility] 04/23/2019 Overweight CPS Med Review with Karla Amber [facility] 04/23/2019 Z68.27 - Body mass index (BM I) 27.0-27.9 adult CPS Med Review with Karla Amber [facility] 04/23/2019 Acute pharyngitis Medical Established Patient with Brandy Kelley [facility] 04/15/2019 Asthmatic bronchitis with ac cahto exacerbation Medical Established Patient with Brandy Kelley [facility] 04/15/2019 Fagerstrom Score was two Medical Establi shed Patient with Brandy Kelley [facility] 04/15/2019 PHQ-9: total score was three 04/15/2019 Medical Established Patient with Brandy Kelley [facility] 04/15/2019 Body mass index Medical Established Patient with Karla Amber [facility] 03/05/2019 Diabetes Risk Test Score was three score Medical Established Patient with Karlajulius Clark [facility] 03/05/2019 Overweight Medical Established Patient with Karla Amber [facility] 03/05/2019 Z68.28 - Body mass index (BM I) 28.0-28.9, adult Medical Established Patient with Karla Clark UPPER INSPECTOR 12/22/2018 Assess routine adult history and physical (18 - 64 yrs) Medical Established Patient with Karlajulius Clark UPPER INSPECTOR 11/06/2018 Overweight Medical Established Patient with Karlajulius Clark UPPER INSPECTOR 11/06/2018 Z68.28 - Body mass index (BM I) 28.0-28.9, adult Medical Established Patient with Karla Clark UPPER INSPECTOR 11/06/2018 Assess dysphagia Medical Established Patient with Karlajulius Clark UPPER INSPECTOR 09/11/2018 Assess routine adult history and physical (18 - 64 yrs) Medical Established Patient with Karla Clark UPPER INSPECTOR 09/11/2018 Assess primary insomnia with sleep apnea Medical Established Patient with Karla Clark UPPER INSPECTOR 09/04/2018 Assess routine adult history and physical (18 - 64 yrs) Medical Established Patient with Karlajulius Clark UPPER INSPECTOR 09/04/2018 Overweight Medical Established Patient with Karla Clark UPPER INSPECTOR 09/04/2018 Z68.29 - Body mass index (BM I) 29.0-29.9, adult Medical Established Patient with Karla Clark UPPER INSPECTOR 09/04/2018 Assess vaginal candidiasis Medical Estab lished Patient with Karla Clark UPPER INSPECTOR 07/31/2018 [facility] Work Phone: 1([phone]) 348-214406-03-2022 Evaluation note Includes: Assessments for all patient encounters Findings Encounter Date Bipolar disorder NOS BH Establ[facility] 11/03/2021 Bipolar schizoaffective disorder BH Esta blished [facility] 11/03/2021 PLAN Medical Established Patient with Don [...] adult Medical Established Patient with Karla Floresen UPPER INSPECTOR 07/28/2021 Assess Colon screening Medical Establish ed Patient with Karla Floresen UPPER INSPECTOR 05/08/2021 Diabetes Risk Test Score was four score 05/08/2021 Medical Established Patient with Karla Amber UPPER INSPECTOR 05/08/2021 Routine adult history and ph ysical (18-64 yrs) without abnormal findings Medical Established Patient with Karla Amber UPPER INSPECTOR 05/08/2021 Z68.24 - Body mass index [BM I] 24.0-24.9, adult Medical Established Patient with Karla Amber UPPER INSPECTOR 05/08/2021 Z68.24 - Body mass index [BM I] 24.0-24.9, adult Medical Established Patient with Karla Amber UPPER INSPECTOR 06/17/2020 Overweight Medical Established Patient with Karla Amber UPPER INSPECTOR 06/06/2020 Z68.25 - Body mass index [BM I] 25.0-25.9, adult Medical Established Patient with Karla Amber UPPER INSPECTOR 06/06/2020 Antiasthmatics CPS Asthma Clinic-Ne w with Karlajulius Clark [facility] 05/06/2020 Assessment of tobacco use CPS Asthma Cli yash-New with Karlajulius Clark [facility] 05/06/2020 Body mass index CPS Asthma Clinic-Ne w with Karlajulius Clark [facility] 05/06/2020 Chronic obstructive pulmonary disease CP S Asthma Clinic-New with Karlajulius Clark [facility] 05/06/2020 Overweight CPS Asthma Clinic-Ne w with Karlajulius Clark [facility] 05/06/2020 Z11.4 - Encounter for screen ing for human immunodeficiency virus [HIV] CPS Asthma Clinic-New with Karlajulius Clark [facility] 05/06/2020 Diabetes Risk Test Score was three score 03/31/2020 Medical Established Patient with Karla Amber UPPER INSPECTOR 03/31/2020 Overweight Medical Established Patient with Karla Amber UPPER INSPECTOR 03/31/2020 Z68.25 - Body mass index [BM I] 25.0-25.9, adult Medical Established Patient with Karla Amber [facility] 03/31/2020 Encounter for Immunization Nurse Visit with Gary Clark UPPER INSPECTOR 03/14/2020 Body mass index Medical Established Patient with Karlajulius Clark UPPER INSPECTOR 02/26/2020 Overweight Medical Established Patient with Karla Amber UPPER INSPECTOR 02/26/2020 Overweight Medical Established Patient with Karla Amber UPPER INSPECTOR 07/23/2019 Z68.27 - Body mass index (BM I) 27.0-27.9, adult Medical Established Patient with Karlajulius Clark UPPER INSPECTOR 07/23/2019 Occasional asthma CPS- Asthma Clinic- F/U with Karlajulius Clark UPPER INSPECTOR 06/05/2019 Overweight CPS- Asthma Clinic- F/U with Karlajulius Clark UPPER INSPECTOR 06/05/2019 Z68.27 - Body mass index (BM I) 27.0-27.9 adult CPS- Asthma Clinic- F/U with Karlajulius Clark UPPER INSPECTOR 06/05/2019 Occasional asthma CPS Med Review with Karlajulius Clark [facility] 04/23/2019 Overweight CPS Med Review with Karlajulius Clark [facility] 04/23/2019 Z68.27 - Body mass index (BM I) 27.0-27.9 adult CPS Med Review with Karlajulius Clark [facility] 04/23/2019 Acute pharyngitis Medical Established Patient with Brandy Serranoer [facility] 04/15/2019 Asthmatic bronchitis with ac cahto exacerbation Medical Established Patient with Brandy Warren [facility] 04/15/2019 Fagerstrom Score was two Medical Establi shed Patient with Brandy Warren [facility] 04/15/2019 PHQ-9: total score was three 04/15/2019 Medical Established Patient with Brandy Warren [facility] 04/15/2019 Body mass index Medical Established Patient with Karla Clark [facility] 03/05/2019 Diabetes Risk Test Score was three score Medical Established Patient with Karla Clark [facility] 03/05/2019 Overweight Medical Established Patient with Karla [facility] 03/05/2019 Z68.28 - Body mass index (BM I) 28.0-28.9, adult Medical Established Patient with Karla Clark [facility] 12/22/2018 Assess routine adult history and physical (18 - 64 yrs) Medical Established Patient with Karlajulius Clark [facility] 11/06/2018 Overweight Medical Established Patient with Karla Amber [facility] 11/06/2018 Z68.28 - Body mass index (BM I) 28.0-28.9, adult Medical Established Patient with Karla Amber [facility] 11/06/2018 Assess dysphagia Medical Established Patient with Karla Amber [facility] 09/11/2018 Assess routine adult history and physical (18 - 64 yrs) Medical Established Patient with Karla Amber [facility] 09/11/2018 Assess primary insomnia with sleep apnea Medical Established Patient with Karla Amber UPPER INSPECTOR 09/04/2018 Assess routine adult history and physical (18 - 64 yrs) Medical Established Patient with Karla Clark CNP 09/04/2018 Overweight Medical Established Patient with Karla Clark CNP 09/04/2018 Z68.29 - Body mass index (BM I) 29.0-29.9, adult Medical Established Patient with Karla Clark CNP 09/04/2018 Assess vaginal candidiasis Medical Estab lished Patient with Karla Clark UPPER INSPECTOR 07/31/2018 [facility] Work Phone: 1([phone]) 426-257206-03-2022 History general Narrative - Reported Includes: Medical History in patient's chart Description Last Updated Currently nursing 11/03/2021 Partners status unknown for sexually tra nsmitted infection 11/03/2021 11/03/2021 Not planning to have a baby in the next 12 months 11/03/2021 Heart Attack 03/2021 [place] [id number] 07/09/2020 A recent immunization for flu 05/06/2020 Patient gave verbal consent for teleheal 08/31/2019 History of abnormal electrocardiogram History of asthma 07/31/2018 History of cardiovascular disorder 07/31 History of respiratory disorder 07/31/19 19 History of bipolar disorder NOS 07/31/19 19 History of depression 07/31/2018 History of psychiatric disorders 019 [facility] Work Phone: 1(921) 607-553305-13-2022 Note [id number]:[id number] 08-03-2021 Evaluation note* Diagnosis Breast lump on right side at 4 o'clock position Lump or mass in breast documented in this encounter [facility] [place] Phone: 1([phone]) [phone] Evaluation note Includes: Assessments for all patient encounters Findings Encounter Date Cough Medical Established Patient with Karla Clark UPPER INSPECTOR 07/28/2021 Intervention and counseling on cessation of tobacco use, 3-10 minutes Discussed medication and nicotine replacement for tobacco cessation Medical Established Patient with Karla Clark UPPER INSPECTOR 07/28/2021 Nicotine dependence Medical Established Patient with Karla Clark UPPER INSPECTOR 07/28/2021 Z68.24 - Body mass index [BM I] 24.0-24.9, adult Medical Established Patient with Karla Clark [facility] 07/28/2021 Assess Colon screening Medical Establish ed Patient with Karla Floresen UPPER INSPECTOR 05/08/2021 Diabetes Risk Test Score was four score 05/08/2021 Medical Established Patient with Karla Clark UPPER INSPECTOR 05/08/2021 Routine adult history and ph ysical (18-64 yrs) without abnormal findings Medical Established Patient with Karla Amber UPPER INSPECTOR 05/08/2021 Z68.24 - Body mass index [BM I] 24.0-24.9, adult Medical Established Patient with Karla Amber [facility] 05/08/2021 Z68.24 - Body mass index [BM I] 24.0-24.9, adult Medical Established Patient with Karla Amber [facility] 06/17/2020 Overweight Medical Established Patient with Karla Amber [facility] 06/06/2020 Z68.25 - Body mass index [BM I] 25.0-25.9, adult Medical Established Patient with Karlajulius Clark UPPER INSPECTOR 06/06/2020 Antiasthmatics CPS Asthma Clinic-Ne w with Karlajulius Clark [facility] 05/06/2020 Assessment of tobacco use CPS Asthma Cli yash-New with Karlajulius Clark [facility] 05/06/2020 Body mass index CPS Asthma Clinic-Ne w with Karlajulius Clark [facility] 05/06/2020 Chronic obstructive pulmonary disease CP S Asthma Clinic-New with Karlajulius Clark [facility] 05/06/2020 Overweight CPS Asthma Clinic-Ne w with Karlajulius Clark [facility] 05/06/2020 Z11.4 - Encounter for screen ing for human immunodeficiency virus [HIV] CPS Asthma Clinic-New with Karlajulius Clark [facility] 05/06/2020 Diabetes Risk Test Score was three score 03/31/2020 Medical Established Patient with Karla Amber [facility] 03/31/2020 Overweight Medical Established Patient with Karla Amber [facility] 03/31/2020 Z68.25 - Body mass index [BM I] 25.0-25.9, adult Medical Established Patient with Karla Amber [facility] 03/31/2020 Encounter for Immunization Nurse Visit with GaryNicolasa [facility] 03/14/2020 Body mass index Medical Established Patient with Karlajulius Clark [facility] 02/26/2020 Overweight Medical Established Patient with Karlajulius Clark [facility] 02/26/2020 Overweight Medical Established Patient with Karlajulius Clark [facility] 07/23/2019 Z68.27 - Body mass index (BM I) 27.0-27.9, adult Medical Established Patient with Karla Clark UPPER INSPECTOR 07/23/2019 Occasional asthma CPS- Asthma Clinic- F/U with Karlajulius Clark [facility] 06/05/2019 Overweight CPS- Asthma Clinic- F/U with Karlajulius Floresen UPPER INSPECTOR 06/05/2019 Z68.27 - Body mass index (BM I) 27.0-27.9 adult CPS- Asthma Clinic- F/U with Karla Floresen UPPER INSPECTOR 06/05/2019 Occasional asthma CPS Med Review with Karlajulius Clark [facility] 04/23/2019 Overweight CPS Med Review with Karlajulius Clark [facility] 04/23/2019 Z68.27 - Body mass index (BM I) 27.0-27.9 adult CPS Med Review with Karla Clark [facility] 04/23/2019 Acute pharyngitis Medical Established Patient with Brandy Warren UPPER INSPECTOR 04/15/2019 Asthmatic bronchitis with ac cahto exacerbation Medical Established Patient with Brandy Warren [facility] 04/15/2019 Fagerstrom Score was two Medical Establi shed Patient with Brandy Warren [facility] 04/15/2019 PHQ-9: total score was three 04/15/2019 Medical Established Patient with Brandy Warren [facility] 04/15/2019 Body mass index Medical Established Patient with Karla Clark [facility] 03/05/2019 Diabetes Risk Test Score was three score Medical Established Patient with Karla Clark [facility] 03/05/2019 Overweight Medical Established Patient with Karla Amber [facility] 03/05/2019 Z68.28 - Body mass index (BM I) 28.0-28.9, adult Medical Established Patient with Karla Clark [facility] 12/22/2018 Assess routine adult history and physical (18 - 64 yrs) Medical Established Patient with Karlajulius Clark UPPER INSPECTOR 11/06/2018 Overweight Medical Established Patient with Karla Clark [facility] 11/06/2018 Z68.28 - Body mass index (BM I) 28.0-28.9, adult Medical Established Patient with Karla Clark UPPER INSPECTOR 11/06/2018 Assess dysphagia Medical Established Patient with Karla Amber UPPER INSPECTOR 09/11/2018 Assess routine adult history and physical (18 - 64 yrs) Medical Established Patient with Karla Clark [facility] 09/11/2018 Assess primary insomnia with sleep apnea Medical Established Patient with Karlajulius Clark UPPER INSPECTOR 09/04/2018 Assess routine adult history and physical (18 - 64 yrs) Medical Established Patient with Karla Amber UPPER INSPECTOR 09/04/2018 Overweight Medical Established Patient with Karla Amebr UPPER INSPECTOR 09/04/2018 Z68.29 - Body mass index (BM I) 29.0-29.9, adult Medical Established Patient with Karla Amber UPPER INSPECTOR 09/04/2018 Assess vaginal candidiasis Medical Estab lished Patient with Karla Amber UPPER INSPECTOR 07/31/2018 [facility] Work Phone: [phone]) 291-603510-01-2021 History general Narrative - Reported Includes: Medical History in patient's chart Description Last Updated Heart Attack 03/2021 [facility] 1 07/09/2020 A recent immunization for flu 05/06/2020 Patient gave verbal consent for teleheal th 08/31/2019 History of abnormal electrocardiogram History of asthma 07/31/2018 History of cardiovascular disorder 07/31 History of respiratory disorder 07/31/19 19 History of bipolar disorder NOS 07/31/19 19 History of depression 07/31/2018 History of psychiatric disorders 019 [facility] Work Phone: [phone] 393-421012-04-2020 Reason for referral (narrative)* Date Encounter Description Provider Reason for Referral 05/06/20 [facility]-New Karla Clark CNP Re ferral To Mental Health Team [facility] Work Phone: [phone]) 361-662704-04-2019 Evaluation note Includes: Assessments for all patient encounters Findings Encounter Date Assess routine adult history and physical (18 - 64 yrs) Established Patient with Karla Amber UPPER INSPECTOR 09/04/2018 Overweight Established Patient with Karla Amber UPPER INSPECTOR 09/04/2018 Z68.29 - Body mass index (BM I) 29.0-29.9, adult Established Patient with Karla Amber UPPER INSPECTOR 09/04/2018 Assess vaginal candidiasis Established P atient with Karla Amber UPPER INSPECTOR 07/31/2018 [facility] Work Phone: discharge summary Author Reynaldo Kraft [facility] August 20, 2023 12:42pm Note Date/Time August 20, 2023 8:5 0am [facility] ENTER [address] [place] [address] Discharge Summary Signed Patient: Gail Almeida MR#: [id number] : 1955 Acct:[id number] Age/Sex: 67 / F Adm Date: 4 Loc: Room: [address] [place] [address]: Joe Davis MD Copies to: [...] 2 times total 1 time here in [facility] and another time at a different hospital Past suicide attempts: Denies previous suicidal attempts Previous medications: Reports Seroquel, [place], Zyprexa, Cogentin Alcohol and Drug Use: Denies alcohol use. Denies street drugs. 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 [...] Instructions: Important Contact Information You can call [facility] Inpatient Behavioral Health at [phone] any time day or night if you have emergent questions or question regarding discharge instructions. If at any time you are feeling an increase inyour psychiatric symptoms, call your physician or behavioral healthcare provider. If any time you have thoughts of harming yourself or others contact one of the following: Call (available 24/12) Crisis Text Line (available 24/12) text 4HOPE to [phone] [facility] Hope Line (available 8 a.m. Midnight) call [phone] ([phone]) Regular Diet No Activity Restrictions Instructions: Schizoaffective Disorder (DC), [facility] Behavioral Health DC Instructions [...] mg PO DAILY fluticasone propionate 50 mcg/actuation [place],Suspension 1 spray INTRANASAL BID Rx Instructions: inhale [...] recon 37.5 mg IM Q2W Patient Comments: 3- start olanzapine [Zyprexa] 5 mg tablet 5 [...] tablet 10 mg PO QHS Follow Up: [facility] [place] - [place] [Outside] - 09/10/23 8:40 am (A correctional counselor/case manager will call you on Saturday08/21/23 between 8:00am and 12:00pm. Psychiatry: Saturday09/10/23 at 8:40am with Dr. Galicia. ) Karla Clark APRN, SUPER[employer]OR [employer] [Referring] - (Contact your PCP with medical needs. ) Documented By: Reynaldo Kraft MD 08/20/23 0850 Signed By: <Electronically signed by Reynaldo Kraft MD> 08/20/23 1242 [facility] Work Phone: Evaluation + Plan note No data available for this section [facility] History of breast biopsy Other postprocedural status documented in this encounter [facility] Work Phone: evaluation note Includes: Assessments for all patient encounters Findings Encounter Date Assess Colon screening Medical Establish ed Patient with Karla Clark UPPER INSPECTOR 05/08/2021 Diabetes Risk Test Score was four score 05/08/2021 Medical Established Patient with Karla Clark UPPER INSPECTOR 05/08/2021 Routine adult history and ph ysical (18-64 yrs) without abnormal findings Medical Established Patient with Karla Amber UPPER INSPECTOR 05/08/2021 Z68.24 - Body mass index [BM I] 24.0-24.9, adult Medical Established Patient with Karla Amber UPPER INSPECTOR 05/08/2021 Z68.24 - Body mass index [BM I] 24.0-24.9, adult Medical Established Patient with Karlajulius Clark UPPER INSPECTOR 06/17/2020 Overweight Medical Established Patient with Karla Amber UPPER INSPECTOR 06/06/2020 Z68.25 - Body mass index [BM I] 25.0-25.9, adult Medical Established Patient with Karlajulius Clark UPPER INSPECTOR 06/06/2020 Antiasthmatics [facility] Ast[facility] Clinic-Ne w with Karla Clark [facility] 05/06/2020 Assessment of tobacco use CPS Asthma Cli yash-New with Karlajulius Clark [facility] 05/06/2020 Body mass index CPS Asthma Clinic-Ne w with Karlajulius Clark UPPER INSPECTOR 05/06/2020 Chronic obstructive pulmonary disease CP S Asthma Clinic-New with Karlajulius Clark [facility] 05/06/2020 Overweight CPS Asthma Clinic-Ne w with Karlajulius Clark [facility] 05/06/2020 Z11.4 - Encounter for screen ing for human immunodeficiency virus [HIV] [facility] Clinic-New with Karlajulius Clark [facility] 05/06/2020 Diabetes Risk Test Score was three score 03/31/2020 Medical Established Patient with Karlajulius Clark [facility] 03/31/2020 Overweight Medical Established Patient with Karlajulius Clark UPPER INSPECTOR 03/31/2020 Z68.25 - Body mass index [BM I] 25.0-25.9, adult Medical Established Patient with Karla Amber UPPER INSPECTOR 03/31/2020 Encounter for Immunization Nurse Visit with Gary Clark [facility] 03/14/2020 Body mass index Medical Established Patient with Karlajulius Clark UPPER INSPECTOR 02/26/2020 Overweight Medical Established Patient with Karlajulius Clark UPPER INSPECTOR 02/26/2020 Overweight Medical Established Patient with Karlajulius Clark UPPER INSPECTOR 07/23/2019 Z68.27 - Body mass index (BM I) 27.0-27.9, adult Medical Established Patient with Karla Clark UPPER INSPECTOR 07/23/2019 Occasional asthma CPS- Asthma Clinic- F/U with Karlajulius Clark [facility] 06/05/2019 Overweight CPS- Asthma Clinic- F/U with Karlajulius Floresen UPPER INSPECTOR 06/05/2019 Z68.27 - Body mass index (BM I) 27.0-27.9 adult CPS- Asthma Clinic- F/U with Karla Clark UPPER INSPECTOR 06/05/2019 Occasional asthma CPS Med Review with Karla Clark [facility] 04/23/2019 Overweight CPS Med Review with Karlajulius Clark [facility] 04/23/2019 Z68.27 - Body mass index (BM I) 27.0-27.9 adult CPS Med Review with Karla Clark [facility] 04/23/2019 Acute pharyngitis Medical Established Patient with Brandy Warren [facility] 04/15/2019 Asthmatic bronchitis with ac cahto exacerbation Medical Established Patient with Brandy Warren [facility] 04/15/2019 Fagerstrom Score was two Medical Establi shed Patient with Brandy Serranoer [facility] 04/15/2019 PHQ-9: total score was three 04/15/2019 Medical Established Patient with Brandy Warren [facility] 04/15/2019 Body mass index Medical Established Patient with Karla Clark [facility] 03/05/2019 Diabetes Risk Test Score was three score Medical Established Patient with Karla Clark [facility] 03/05/2019 Overweight Medical Established Patient with Karla [facility] 03/05/2019 Z68.28 - Body mass index (BM I) 28.0-28.9, adult Medical Established Patient with Karla Clark [facility] 12/22/2018 Assess routine adult history and physical (18 - 64 yrs) Medical Established Patient with Karlajulius Clark UPPER INSPECTOR 11/06/2018 Overweight [facility] Z68.28 - Body mass index (BM I) 28.0-28.9, adult Medical Established Patient with Karla Clark [facility] 11/06/2018 Assess dysphagia Medical Established Patient with Karla Amber [facility] 09/11/2018 Assess routine adult history and physical (18 - 64 yrs) Medical Established Patient with Karla Clark [facility] 09/11/2018 Assess primary insomnia with sleep apnea Medical Established Patient with Karlajulius Clark [facility] 09/04/2018 Assess routine adult history and physical (18 - 64 yrs) Medical Established Patient with Karla Amber CNP 09/04/2018 Overweight Medical Established Patient with Karla Clark CNP 09/04/2018 Z68.29 - Body mass index (BM I) 29.0-29.9, adult Medical Established Patient with Karla Clark CNP 09/04/2018 Assess vaginal candidiasis Medical Estab lished Patient with Karla Clark CNP 07/31/2018 [facility] Work Phone: Evaluation note* Diagnosis Pre-procedure lab exam Pre-procedural laboratory examination documented in this encounter [facility] Work Phone: evaluation note Includes: Assessments for all patient encounters Findings Encounter Date Assess dysphagia Established Patient with Karla Clark CNP 09/11/2018 Assess routine adult history and physical (18 - 64 yrs) Established Patient with Karlajulius Clark UPPER INSPECTOR 09/11/2018 Assess primary insomnia with sleep apnea Established Patient with Karlajulius Clark CNP 09/04/2018 Assess routine adult history and physical (18 - 64 yrs) Established Patient with Karla Amber CNP 09/04/2018 Overweight Established Patient with Karla Amber CROOKS 09/04/2018 Z68.29 - Body mass index (BM I) 29.0-29.9, adult Established Patient with Karla Clark CNP 09/04/2018 Assess vaginal candidiasis Established P atient with Karla Clark CNP 07/31/2018 [facility] Work Phone: Evaluation note Includes: Assessments for [...] adult Medical Established Patient with Karla Clark UPPER INSPECTOR 07/28/2021 Assess Colon screening Medical Establish ed Patient with Karla Clark UPPER INSPECTOR 05/08/2021 Diabetes Risk Test Score was four score 05/08/2021 Medical Established Patient with Karla Clark UPPER INSPECTOR 05/08/2021 Routine adult history and ph ysical (18-64 yrs) without abnormal findings Medical Established Patient with Karla Amber UPPER INSPECTOR 05/08/2021 Z68.24 - Body mass index [BM I] 24.0-24.9, adult Medical Established Patient with Karla Clark UPPER INSPECTOR 05/08/2021 Z68.24 - Body mass index [BM I] 24.0-24.9, adult Medical Established Patient with Karla Amber UPPER INSPECTOR 06/17/2020 Overweight Medical Established Patient with Karla Clark UPPER INSPECTOR 06/06/2020 Z68.25 - Body mass index [BM I] 25.0-25.9, adult Medical Established Patient with Karla Amber UPPER INSPECTOR 06/06/2020 Antiasthmatics CPS [facility] Clinic-Ne w with Karlajulius Clark [facility] 05/06/2020 Assessment of tobacco use CPS Asthma Cli yash-New with Karla Amber [facility] 05/06/2020 Body mass index CPS Asthma Clinic-Ne w with Karlajulius Clark [facility] 05/06/2020 Chronic obstructive pulmonary disease CP S Asthma Clinic-New with Karlajulius Clark [facility] 05/06/2020 Overweight CPS Asthma Clinic-Ne w with Karla Amber [facility] 05/06/2020 Z11.4 - Encounter for screen ing for human immunodeficiency virus [HIV] [facility] Clinic-New with Karlajulius Clark [facility] 05/06/2020 Diabetes Risk Test Score was three score 03/31/2020 Medical Established Patient with Karla Amber [facility] 03/31/2020 Overweight Medical Established Patient with Karla Amber [facility] 03/31/2020 Z68.25 - Body mass index [BM I] 25.0-25.9, adult Medical Established Patient with Karla Amber [facility] 03/31/2020 Encounter for Immunization Nurse Visit with Gary Clark [facility] 03/14/2020 Body mass index Medical Established Patient with Karlajulius Clark UPPER INSPECTOR 02/26/2020 Overweight Medical Established Patient with Karlajulius Clark UPPER INSPECTOR 02/26/2020 Overweight Medical Established Patient with Karlajulius Clark UPPER INSPECTOR 07/23/2019 Z68.27 - Body mass index (BM I) 27.0-27.9, adult Medical Established Patient with Karla Clark UPPER INSPECTOR 07/23/2019 Occasional asthma CPS- Asthma Clinic- F/U with Karlajulius Clark [facility] 06/05/2019 Overweight CPS- Asthma Clinic- F/U with Karlajulius Floresen [facility] 06/05/2019 Z68.27 - Body mass index (BM I) 27.0-27.9 adult CPS- Asthma Clinic- F/U with Karla Amber UPPER INSPECTOR 06/05/2019 Occasional asthma CPS Med Review with Karlajulius Floresen [facility] 04/23/2019 Overweight [facility] Z68.27 - Body mass index (BM I) 27.0-27.9 adult CPS Med Review with Karlajulius Clark [facility] 04/23/2019 Acute pharyngitis Medical Established Patient with Brandy Serranoer [facility] 04/15/2019 Asthmatic bronchitis with ac cahto exacerbation [facility] Fagerstrom Score was two Medical Establi shed [facility] PHQ-9: total score was three 04/15/2019 [facility] Body mass index Medical Established Patient with Karla Clark [facility] 03/05/2019 Diabetes Risk Test Score was three score Medical Established Patient with Karla Clark [facility] 03/05/2019 Overweight Medical Established Patient with Karla Amber CNP 03/05/2019 Z68.28 - Body mass index (BM I) 28.0-28.9, adult Medical Established Patient with Karla Clark [facility] 12/22/2018 Assess routine adult history and physical (18 - 64 yrs) Medical Established Patient with Karlajulius Clark UPPER INSPECTOR 11/06/2018 Overweight Medical Establ[facility]06[facility]2018 Z68.28 - Body mass index (BM I) 28.0-28.9, adult Medical Established Patient with Karlajulius Clark [facility] 11/06/2018 Assess dysphagia Medical Established Patient with Karla Amber [facility] 09/11/2018 Assess routine adult history and physical (18 - 64 yrs) Medical Established Patient with Karlajulius Clark UPPER INSPECTOR 09/11/2018 Assess primary insomnia with sleep apnea Medical Established Patient with Karlajulius Clark UPPER INSPECTOR 09/04/2018 Assess routine adult history and physical (18 - 64 yrs) Medical Established Patient with Karla Amber UPPER INSPECTOR 09/04/2018 Overweight Medical Established Patient with Karla Amber UPPER INSPECTOR 09/04/2018 Z68.29 - Body mass index (BM I) 29.0-29.9, adult Medical Established Patient with Karla Amber UPPER INSPECTOR 09/04/2018 Assess vaginal candidiasis Medical Estab lished Patient with Karla Amber UPPER INSPECTOR 07/31/2018 [facility] Work Phone: Evaluation note* Diagnosis Pre-operative clearance Preoperative examination, unspecified Abnormal EKG Nonspecific abnormal electrocardiogram (ECG) (EKG) History of ME (myocardial infarction) Old myocardial infarction documented in this encounter CHARLY ALMEIDA [employer] [facility] Work Phone: evaluation note Includes: Assessments for all patient encounters Findings Encounter Date [H92.02 - Otalgia, left ear] earache Med ical Established Patient with Karla Clark UPPER INSPECTOR 06/18/2022 Last Documented On 3 12:11PM ; [facility] [M79.604 - Pain in right leg ] pain in right leg Medical Established Patient with Karla Clark UPPER INSPECTOR 06/18/2022 Last Documented On 3 12:11PM ; [facility] [Z68.24 - Body mass index [B ME] 24.0-24.9, adult] assessment of body mass index Medical Established Patient with Karla Clark UPPER INSPECTOR 06/18/2022 Last Documented On 3 12:11PM ; [facility] Assessment of tobacco use Medical Establ ished Patient with Karla Clark UPPER INSPECTOR 06/18/2022 Last Documented On 3 12:11PM ; [facility] Diabetes Risk Test Score was four score 06/18/2022 Medical Established Patient with Karla Clark UPPER INSPECTOR 06/18/2022 Last Documented On 3 12:11PM ; [facility] Schizoaffective disorder Established Patient with Yin Feliz [facility] 03/20/2022 Last Documented On 2 12:13AM ; [facility] No cough Medical Established Patient with Karla Clark UPPER INSPECTOR 12/20/2021 Last Documented On 2 3:12PM ; [facility] Visit for: screening for hum an immunodeficiency virus Medical Established Patient with Karla Clark UPPER INSPECTOR 12/20/2021 Last Documented On 2 3:12PM ; [facility] Z68.24 - Body mass index [BM I] 24.0-24.9, adult Medical Established Patient with Karla Clark UPPER INSPECTOR 12/20/2021 Last Documented On 2 3:12PM ; [facility] Bipolar disorder NOS BH Established Patient with Yinluis Feliz [facility] 11/03/2021 Last Documented On 2 7:00PM ; [facility] Bipolar schizoaffective disorder BH Esta blished Patient with Yin Feliz [facility] 11/03/2021 Last Documented On 2 7:00PM ; [facility] PLAN Medical Established Patient with Don Pino MD 11/03/2021 Last Documented On 2 10:40AM ; [facility] Abnormal electrocardiogram Medical Estab lished Patient with Don Pino MD 11/03/2021 Last Documented On 2 10:40AM ; [facility] Z68.24 - Body mass index [BM I] 24.0-24.9, adult Medical Established Patient with Don Pino MD 11/03/2021 Last Documented On 2 10:40AM ; [facility] Cough Medical Established Patient with Karla Clark UPPER INSPECTOR 07/28/2021 Last Documented On 2 2:01PM ; [facility] Intervention and counseling on cessation of tobacco use, 3-10 minutes Discussed medication and nicotine replacement for tobacco cessation Medical Established Patient with Karla Amber UPPER INSPECTOR 07/28/2021 Last Documented On 2 2:01PM ; [facility] Nicotine dependence Medical Established Patient with Karla Amber UPPER INSPECTOR 07/28/2021 Last Documented On 2 2:01PM ; [facility] Z68.24 - Body mass index [BM I] 24.0-24.9, adult Medical Established Patient with Karla Clark UPPER INSPECTOR 07/28/2021 Last Documented On 2 2:01PM ; [facility] Assess Colon screening Medical Established Patie nt with Karla Amber UPPER INSPECTOR 05/08/2021 Last Documented On 1 10:59AM ; [facility] Diabetes Risk Test Score was four score 05/08/2021 Medical Established Patient with Karla Amber UPPER INSPECTOR 05/08/2021 Last Documented On 1 10:59AM ; [facility] Routine adult history and ph ysical (18-64 yrs) without abnormal findings Medical Established Patient with Karla Amber UPPER INSPECTOR 05/08/2021 Last Documented On 1 10:59AM ; [facility] Z68.24 - Body mass index [BM I] 24.0-24.9, adult Medical Established Patient with Karla Amber UPPER INSPECTOR 05/08/2021 Last Documented On 1 10:59AM ; [facility] Z68.24 - Body mass index [BM I] 24.0-24.9, adult Medical Established Patient with Karla Abmer UPPER INSPECTOR 06/17/2020 Last Documented On 1 10:30AM ; [facility] Overweight Medical Established Patient with Karla Amber UPPER INSPECTOR 06/06/2020 Last Documented On 1 2:06PM ; [facility] Z68.25 - Body mass index [BM I] 25.0-25.9, adult Medical Established Patient with Karla Amber UPPER INSPECTOR 06/06/2020 Last Documented On 1 2:06PM ; [facility] Antiasthmatics [facility] Asthma Clinic-New with Karla Amber UPPER INSPECTOR 05/06/2020 Last Documented On 0 7:27PM ; [facility] Assessment of tobacco use [facility] Asthma Clinic-New with Karla Amber UPPER INSPECTOR 05/06/2020 Last Documented On 0 7:27PM ; [facility] Body mass index [facility] Asthma Clinic-New with Karla Amber UPPER INSPECTOR 05/06/2020 Last Documented On 0 7:27PM ; [facility] Chronic obstructive pulmonary disease S [facility]hma Clinic-New with Karla Amber UPPER INSPECTOR 05/06/2020 Last Documented On 0 7:27PM ; [facility] Overweight [facility] Asthma Clinic-New with Karla Amber UPPER INSPECTOR 05/06/2020 Last Documented On 0 7:27PM ; [facility] Z11.4 - Encounter for screen ing for human immunodeficiency virus [HIV] [facility] Asthma Clinic-New with Karla Clark UPPER INSPECTOR 05/06/2020 Last Documented On 0 7:27PM ; [facility] Diabetes Risk Test Score was three score 03/31/2020 Medical Established Patient with Karla Floresen UPPER INSPECTOR 03/31/2020 Last Documented On 0 3:22PM ; [facility] Overweight Medical Established Patient with Karla Floresen UPPER INSPECTOR 03/31/2020 Last Documented On 0 3:22PM ; [facility] Z68.25 - Body mass index [BM I] 25.0-25.9, adult Medical Established Patient with Karla Clark UPPER INSPECTOR 03/31/2020 Last Documented On 0 3:22PM ; [facility] Encounter for Immunization Nurse Visit with Gary Clark UPPER INSPECTOR 03/14/2020 Last Documented On 0 5:11PM ; [facility] Body mass index Medical Established Patient with Karla Clark UPPER INSPECTOR 02/26/2020 Last Documented On 0 1:18PM ; [facility] Overweight Medical Established Patient with Karla Floresen UPPER INSPECTOR 02/26/2020 Last Documented On 0 1:18PM ; [facility] Overweight Medical Established Patient with Karla Floresen UPPER INSPECTOR 07/23/2019 Last Documented On 0 2:33PM ; [facility] Z68.27 - Body mass index (BM I) 27.0-27.9, adult Medical Established Patient with Karla Floresen UPPER INSPECTOR 07/23/2019 Last Documented On 0 2:33PM ; [facility] Occasional asthma CPS- Asthma Clinic- F/U with A french Clark UPPER INSPECTOR 06/05/2019 Last Documented On 0 7:04PM ; [facility] Overweight CPS- Asthma Clinic- F/U with Alta Clark UPPER INSPECTOR 06/05/2019 Last Documented On 0 7:04PM ; [facility] Z68.27 - Body mass index (BM I) 27.0-27.9 adult CPS- Asthma Clinic- F/U with Karla Clark UPPER INSPECTOR 06/05/2019 Last Documented On 0 7:04PM ; [facility] Occasional asthma CPS Med Review with Karlajulius dinh UPPER INSPECTOR 04/23/2019 Last Documented On 9 4:01PM ; [facility] Overweight CPS Med Review with Karla Clark UPPER INSPECTOR 04/23/2019 Last Documented On 9 4:01PM ; [facility] Z68.27 - Body mass index (BM I) 27.0-27.9 adult CPS Med Review with Karlajulius Clark UPPER INSPECTOR 04/23/2019 Last Documented On 9 4:01PM ; [facility] Acute pharyngitis Medical Established Patient wi th Brandy Kelley UPPER INSPECTOR 04/15/2019 Last Documented On 9 12:31PM ; [facility] Asthmatic bronchitis with ac cahto exacerbation Medical Established Patient with Brandy Warren UPPER INSPECTOR 04/15/2019 Last Documented On 9 12:31PM ; [facility] Fagerstrom Score was two Medical Established Pat ient with Brandy Warren UPPER INSPECTOR 04/15/2019 Last Documented On 9 12:31PM ; [facility] PHQ-9: total score was three 04/15/2019 Medical Established Patient with Brandy Warren UPPER INSPECTOR 04/15/2019 Last Documented On 9 12:31PM ; [facility] Body mass index Medical Established Patient with Karla Clark UPPER INSPECTOR 03/05/2019 Last Documented On 9 10:27AM ; [facility] Diabetes Risk Test Score was three score Medical Established Patient with Karla Amber UPPER INSPECTOR 03/05/2019 Last Documented On 9 10:27AM ; [facility] Overweight Medical Established Patient with Karla Amber UPPER INSPECTOR 03/05/2019 Last Documented On 9 10:27AM ; [facility] Z68.28 - Body mass index (BM I) 28.0-28.9, adult Medical Established Patient with Karla Clark UPPER INSPECTOR 12/22/2018 Last Documented On 9 10:32AM ; [facility] Assess routine adult history and physical (18 - 64 yrs) Medical Established Patient with Karla Amber UPPER INSPECTOR 11/06/2018 Last Documented On 9 2:26PM ; [facility] Overweight Medical Established Patient with Karla Amber UPPER INSPECTOR 11/06/2018 Last Documented On 9 2:26PM ; [facility] Z68.28 - Body mass index (BM I) 28.0-28.9, adult Medical Established Patient with Karla Amber UPPER INSPECTOR 11/06/2018 Last Documented On 9 2:26PM ; [facility] Assess dysphagia Medical Established Patient wit h Karla Amber UPPER INSPECTOR 09/11/2018 Last Documented On 9 10:53AM ; [facility] Assess routine adult history and physical (18 - 64 yrs) Medical Established Patient with Karla Amber UPPER INSPECTOR 09/11/2018 Last Documented On 9 10:53AM ; [facility] Assess primary insomnia with sleep apnea Medical Established Patient with Karla Amber UPPER INSPECTOR 09/04/2018 Last Documented On 9 2:23PM ; [facility] Assess routine adult history and physical (18 - 64 yrs) Medical Established Patient with Karla Amber UPPER INSPECTOR 09/04/2018 Last Documented On 9 2:23PM ; [facility] Overweight Medical Established Patient with Karla Amber UPPER INSPECTOR 09/04/2018 Last Documented On 9 2:23PM ; [facility] Z68.29 - Body mass index (BM I) 29.0-29.9, adult Medical Established Patient with Karla Amber UPPER INSPECTOR 09/04/2018 Last Documented On 9 2:23PM ; [facility] Assess vaginal candidiasis Medical Estab lished Patient with Karla Amber UPPER INSPECTOR 07/31/2018 Last Documented On 9 2:12PM ; [facility] Work Phone: Evaluation note* Diagnosis Cutaneous candidiasis Candidiasis of skin and nails Screening for malignant neoplasm of cervix Screening for malignant neoplasm of the cervix documented in this encounter [facility] Work Phone: evaluation note Includes: Assessments for all patient encounters Findings Encounter Date [M25.569 - Pain in unspecifi ed knee] arthralgia of knee / patella / tibia / fibula Medical Established Patient with Karla Clark CNP 08/27/2022 Last Documented On 3 8:56AM ; [facility] [Z68.24 - Body mass index [B ME] 24.0-24.9, adult] assessment of body mass index Medical Established Patient with Karla Clark CNP 08/27/2022 Last Documented On 3 8:56AM ; [facility] Intervention and counseling on cessation of tobacco use, 3-10 minutes Discussed medication and nicotine replacement for tobacco cessation Medical Established Patient with Karla Clark CNP 08/27/2022 Last Documented On 3 8:56AM ; [facility] Nicotine dependence Medical Established Patient with Karla Clark CNP 08/27/2022 Last Documented On 3 8:56AM ; [facility] Visit for routine adult H&P without abnormal findings Medical Established Patient with Karla Clark CNP 08/27/2022 Last Documented On 3 8:56AM ; [facility] [H92.02 - Otalgia, left ear] earache Med ical Established Patient with Karla Clark CNP 06/18/2022 Last Documented On 3 12:11PM ; [facility] [M79.604 - Pain in right leg ] pain in right leg Medical Established Patient with Karla Clark CNP 06/18/2022 Last Documented On 3 12:11PM ; [facility] [Z68.24 - Body mass index [B ME] 24.0-24.9, adult] assessment of body mass index Medical Established Patient with Karla Clark UPPER INSPECTOR 06/18/2022 Last Documented On 3 12:11PM ; [facility] Assessment of tobacco use Medical Establ ished Patient with Karla Clark CNP 06/18/2022 Last Documented On 3 12:11PM ; [facility] Diabetes Risk Test Score was four score 06/18/2022 Medical Established Patient with Karla Clark CNP 06/18/2022 Last Documented On 3 12:11PM ; [facility] Schizoaffective disorder Established Patient with Yin Feliz LPCC-S 03/20/2022 Last Documented On 2 12:13AM ; [facility] No cough Medical Established Patient with Karla Amber UPPER INSPECTOR 12/20/2021 Last Documented On 2 3:12PM ; [facility] Visit for: screening for hum an immunodeficiency virus Medical Established Patient with Karla Amber UPPER INSPECTOR 12/20/2021 Last Documented On 2 3:12PM ; [facility] Z68.24 - Body mass index [BM I] 24.0-24.9, adult Medical Established Patient with Karlajulius Floresen UPPER INSPECTOR 12/20/2021 Last Documented On 2 3:12PM ; [facility] Bipolar disorder NOS BH Established Patient with Yin Feliz LPCC-S 11/03/2021 Last Documented On 2 7:00PM ; [facility] Bipolar schizoaffective disorder BH Esta blished Patient with Yin Feliz LPCC-S 11/03/2021 Last Documented On 2 7:00PM ; [facility] PLAN Medical Established Patient with Don Pino MD 11/03/2021 Last Documented On 2 10:40AM ; [facility] Abnormal electrocardiogram Medical Estab lished Patient with Don Pino MD 11/03/2021 Last Documented On 2 10:40AM ; [facility] Z68.24 - Body mass index [BM I] 24.0-24.9, adult Medical Established Patient with Don Pino MD 11/03/2021 Last Documented On 2 10:40AM ; [facility] Cough Medical Established Patient with Karla Amber UPPER INSPECTOR 07/28/2021 Last Documented On 2 2:01PM ; [facility] Intervention and counseling on cessation of tobacco use, 3-10 minutes Discussed medication and nicotine replacement for tobacco cessation Medical Established Patient with Karla Floresen UPPER INSPECTOR 07/28/2021 Last Documented On 2 2:01PM ; [facility] Nicotine dependence Medical Established Patient with Karla Amber UPPER INSPECTOR 07/28/2021 Last Documented On 2 2:01PM ; [facility] Z68.24 - Body mass index [BM I] 24.0-24.9, adult Medical Established Patient with Karla Amber UPPER INSPECTOR 07/28/2021 Last Documented On 2 2:01PM ; [facility] Assess Colon screening Medical Established Patie nt with Karla Amber UPPER INSPECTOR 05/08/2021 Last Documented On 1 10:59AM ; [facility] Diabetes Risk Test Score was four score 05/08/2021 Medical Established Patient with Karla Amber UPPER INSPECTOR 05/08/2021 Last Documented On 1 10:59AM ; [facility] Routine adult history and ph ysical (18-64 yrs) without abnormal findings Medical Established Patient with Karla Amber UPPER INSPECTOR 05/08/2021 Last Documented On 1 10:59AM ; [facility] Z68.24 - Body mass index [BM I] 24.0-24.9, adult Medical Established Patient with Karla Amber UPPER INSPECTOR 05/08/2021 Last Documented On 1 10:59AM ; [facility] Z68.24 - Body mass index [BM I] 24.0-24.9, adult Medical Established Patient with Karla Amber UPPER INSPECTOR 06/17/2020 Last Documented On 1 10:30AM ; [facility] Overweight Medical Established Patient with Karla Amber UPPER INSPECTOR 06/06/2020 Last Documented On 1 2:06PM ; [facility] Z68.25 - Body mass index [BM I] 25.0-25.9, adult Medical Established Patient with Karla Amber UPPER INSPECTOR 06/06/2020 Last Documented On 1 2:06PM ; [facility] Antiasthmatics [facility] Asthma Clinic-New with Karla Amber UPPER INSPECTOR 05/06/2020 Last Documented On 0 7:27PM ; [facility] Assessment of tobacco use [facility] Asthma Clinic-New with Karla Amber UPPER INSPECTOR 05/06/2020 Last Documented On 0 7:27PM ; [facility] Body mass index CPS Asthma Clinic-New with Karla Clark UPPER INSPECTOR 05/06/2020 Last Documented On 0 7:27PM ; [facility] Chronic obstructive pulmonary disease CP S [facility] Clinic-New with Karla Clark UPPER INSPECTOR 05/06/2020 Last Documented On 0 7:27PM ; [facility] Overweight CPS Asthma Clinic-New with Karla Clark UPPER INSPECTOR 05/06/2020 Last Documented On 0 7:27PM ; [facility] Z11.4 - Encounter for screen ing for human immunodeficiency virus [HIV] CPS Asthma Clinic-New with Karla Clark UPPER INSPECTOR 05/06/2020 Last Documented On 0 7:27PM ; [facility] Diabetes Risk Test Score was three score 03/31/2020 Medical Established Patient with Karla Clark UPPER INSPECTOR 03/31/2020 Last Documented On 0 3:22PM ; [facility] Overweight Medical Established Patient with Karla Clark UPPER INSPECTOR 03/31/2020 Last Documented On 0 3:22PM ; [facility] Z68.25 - Body mass index [BM I] 25.0-25.9, adult Medical Established Patient with Karla Clark UPPER INSPECTOR 03/31/2020 Last Documented On 0 3:22PM ; [facility] Encounter for Immunization Nurse Visit with Gary Clark UPPER INSPECTOR 03/14/2020 Last Documented On 0 5:11PM ; [facility] Body mass index Medical Established Patient with Karla Clark UPPER INSPECTOR 02/26/2020 Last Documented On 0 1:18PM ; [facility] Overweight Medical Established Patient with Karlajulius Floresen UPPER INSPECTOR 02/26/2020 Last Documented On 0 1:18PM ; [facility] Overweight Medical Established Patient with Karla Clark UPPER INSPECTOR 07/23/2019 Last Documented On 0 2:33PM ; [facility] Z68.27 - Body mass index (BM I) 27.0-27.9, adult Medical Established Patient with Karla Clark UPPER INSPECTOR 07/23/2019 Last Documented On 0 2:33PM ; [facility] Occasional asthma CPS- Asthma Clinic- F/U with A french Clark UPPER INSPECTOR 06/05/2019 Last Documented On 0 7:04PM ; [facility] Overweight CPS- Asthma Clinic- F/U with Alta Clark UPPER INSPECTOR 06/05/2019 Last Documented On 0 7:04PM ; [facility] Z68.27 - Body mass index (BM I) 27.0-27.9 adult CPS- Asthma Clinic- F/U with Karla Floresen UPPER INSPECTOR 06/05/2019 Last Documented On 0 7:04PM ; [facility] Occasional asthma CPS Med Review with Karla Flores allegra UPPER INSPECTOR 04/23/2019 Last Documented On 9 4:01PM ; [facility] Overweight CPS Med Review with Karla Amber UPPER INSPECTOR 04/23/2019 Last Documented On 9 4:01PM ; [facility] Z68.27 - Body mass index (BM I) 27.0-27.9 adult CPS Med Review with Karla Floresen UPPER INSPECTOR 04/23/2019 Last Documented On 9 4:01PM ; [facility] Acute pharyngitis Medical Established Patient wi th Brandy Warren UPPER INSPECTOR 04/15/2019 Last Documented On 9 12:31PM ; [facility] Asthmatic bronchitis with ac cahto exacerbation Medical Established Patient with Brandy Warren UPPER INSPECTOR 04/15/2019 Last Documented On 9 12:31PM ; [facility] Fagerstrom Score was two Medical Established Pat ient with Brandy Warren UPPER INSPECTOR 04/15/2019 Last Documented On 9 12:31PM ; [facility] PHQ-9: total score was three 04/15/2019 Medical Established Patient with Brnady Warren UPPER INSPECTOR 04/15/2019 Last Documented On 9 12:31PM ; [facility] Body mass index Medical Established Patient with Karla Amber UPPER INSPECTOR 03/05/2019 Last Documented On 9 10:27AM ; [facility] Diabetes Risk Test Score was three score Medical Established Patient with Karlajulius Clark UPPER INSPECTOR 03/05/2019 Last Documented On 9 10:27AM ; [facility] Overweight Medical Established Patient with Karla Amber UPPER INSPECTOR 03/05/2019 Last Documented On 9 10:27AM ; [facility] Z68.28 - Body mass index (BM I) 28.0-28.9, adult Medical Established Patient with Karla Amber UPPER INSPECTOR 12/22/2018 Last Documented On 9 10:32AM ; [facility] Assess routine adult history and physical (18 - 64 yrs) Medical Established Patient with Karla Amber UPPER INSPECTOR 11/06/2018 Last Documented On 9 2:26PM ; [facility] Overweight Medical Established Patient with Karla Amber UPPER INSPECTOR 11/06/2018 Last Documented On 9 2:26PM ; [facility] Z68.28 - Body mass index (BM I) 28.0-28.9, adult Medical Established Patient with Karla Amber UPPER INSPECTOR 11/06/2018 Last Documented On 9 2:26PM ; [facility] Assess dysphagia Medical Established Patient wit h Karla Amber UPPER INSPECTOR 09/11/2018 Last Documented On 9 10:53AM ; [facility] Assess routine adult history and physical (18 - 64 yrs) Medical Established Patient with Karla Amber UPPER INSPECTOR 09/11/2018 Last Documented On 9 10:53AM ; [facility] Assess primary insomnia with sleep apnea Medical Established Patient with Karla Amber UPPER INSPECTOR 09/04/2018 Last Documented On 9 2:23PM ; [facility] Assess routine adult history and physical (18 - 64 yrs) Medical Established Patient with Karla Amber UPPER INSPECTOR 09/04/2018 Last Documented On 9 2:23PM ; [facility] Overweight Medical Established Patient with Karla Amber UPPER INSPECTOR 09/04/2018 Last Documented On 9 2:23PM ; [facility] Z68.29 - Body mass index (BM I) 29.0-29.9, adult Medical Established Patient with Karla Amber UPPER INSPECTOR 09/04/2018 Last Documented On 9 2:23PM ; [facility] Assess vaginal candidiasis Medical Estab lished Patient with Karla Amber UPPER INSPECTOR 07/31/2018 Last Documented On 9 2:12PM ; [facility] Work Phone: Evaluation note Includes: Assessments for all patient encounters Findings Encounter Date [M25.569 - Pain in unspecifi ed knee] arthralgia of knee / patella / tibia / fibula Medical Established Patient with Karla Clark CNP 08/27/2022 Last Documented On 3 8:56AM ; [facility] [Z68.24 - Body mass index [B ME] 24.0-24.9, adult] assessment of body mass index Medical Established Patient with Karla Clark CNP 08/27/2022 Last Documented On 3 8:56AM ; [facility] Intervention and counseling on cessation of tobacco use, 3-10 minutes Discussed medication and nicotine replacement for tobacco cessation Medical Established Patient with Karla Clark CNP 08/27/2022 Last Documented On 3 8:56AM ; [facility] Nicotine dependence Medical Established Patient with Karla Clark CNP 08/27/2022 Last Documented On 3 8:56AM ; [facility] Visit for routine adult H&P without abnormal findings Medical Established Patient with Karla Clark CNP 08/27/2022 Last Documented On 3 8:56AM ; [facility] [H92.02 - Otalgia, left ear] earache Med ical Established Patient with Karla Clark CNP 06/18/2022 Last Documented On 3 12:11PM ; [facility] [M79.604 - Pain in right leg ] pain in right leg Medical Established Patient with Karla Clark UPPER INSPECTOR 06/18/2022 Last Documented On 3 12:11PM ; [facility] [Z68.24 - Body mass index [B ME] 24.0-24.9, adult] assessment of body mass index Medical Established Patient with Karla Clark UPPER INSPECTOR 06/18/2022 Last Documented On 3 12:11PM ; [facility] Assessment of tobacco use Medical Establ ished Patient with Karla Clark CNP 06/18/2022 Last Documented On 3 12:11PM ; [facility] Diabetes Risk Test Score was four score 06/18/2022 Medical Established Patient with Karla Clark UPPER INSPECTOR 06/18/2022 Last Documented On 3 12:11PM ; [facility] Schizoaffective disorder Established Patient with Yin Feliz LPCC-S 03/20/2022 Last Documented On 2 12:13AM ; [facility] No cough Medical Established Patient with Karla Amber UPPER INSPECTOR 12/20/2021 Last Documented On 2 3:12PM ; [facility] Visit for: screening for hum an immunodeficiency virus Medical Established Patient with Karla Amber UPPER INSPECTOR 12/20/2021 Last Documented On 2 3:12PM ; [facility] Z68.24 - Body mass index [BM I] 24.0-24.9, adult Medical Established Patient with Karla Clark UPPER INSPECTOR 12/20/2021 Last Documented On 2 3:12PM ; [facility] Bipolar disorder NOS Established Patient with Yin Feliz LPCC-S 11/03/2021 Last Documented On 2 7:00PM ; [facility] Bipolar schizoaffective disorder BH Esta blished Patient with Yin Feliz LPCC-S 11/03/2021 Last Documented On 2 7:00PM ; [facility] PLAN Medical Established Patient with Don Pino MD 11/03/2021 Last Documented On 2 10:40AM ; [facility] Abnormal electrocardiogram Medical Estab lished Patient with Don Pino MD 11/03/2021 Last Documented On 2 10:40AM ; [facility] Z68.24 - Body mass index [BM I] 24.0-24.9, adult Medical Established Patient with Don Pino MD 11/03/2021 Last Documented On 2 10:40AM ; [facility] Cough Medical Established Patient with Karla Clark UPPER INSPECTOR 07/28/2021 Last Documented On 2 2:01PM ; [facility] Intervention and counseling on cessation of tobacco use, 3-10 minutes Discussed medication and nicotine replacement for tobacco cessation Medical Established Patient with Karla Amber UPPER INSPECTOR 07/28/2021 Last Documented On 2 2:01PM ; [facility] Nicotine dependence Medical Established Patient with Karla Amber UPPER INSPECTOR 07/28/2021 Last Documented On 2 2:01PM ; [facility] Z68.24 - Body mass index [BM I] 24.0-24.9, adult Medical Established Patient with Karla Amber UPPER INSPECTOR 07/28/2021 Last Documented On 2 2:01PM ; [facility] Assess Colon screening Medical Established Patie nt with Karla Amber UPPER INSPECTOR 05/08/2021 Last Documented On 1 10:59AM ; [facility] Diabetes Risk Test Score was four score 05/08/2021 Medical Established Patient with Karla Amber UPPER INSPECTOR 05/08/2021 Last Documented On 1 10:59AM ; [facility] Routine adult history and ph ysical (18-64 yrs) without abnormal findings Medical Established Patient with Karlajulius Clark UPPER INSPECTOR 05/08/2021 Last Documented On 1 10:59AM ; [facility] Z68.24 - Body mass index [BM I] 24.0-24.9, adult Medical Established Patient with Karla Amber UPPER INSPECTOR 05/08/2021 Last Documented On 1 10:59AM ; [facility] Z68.24 - Body mass index [BM I] 24.0-24.9, adult Medical Established Patient with Karla Amber UPPER INSPECTOR 06/17/2020 Last Documented On 1 10:30AM ; [facility] Overweight Medical Established Patient with Karla Amber UPPER INSPECTOR 06/06/2020 Last Documented On 1 2:06PM ; [facility] Z68.25 - Body mass index [BM I] 25.0-25.9, adult Medical Established Patient with Karla Amber UPPER INSPECTOR 06/06/2020 Last Documented On 1 2:06PM ; [facility] Antiasthmatics [facility] Asthma Clinic-New with Karla Clark UPPER INSPECTOR 05/06/2020 Last Documented On 0 7:27PM ; [facility] Assessment of tobacco use CPS Asthma Clinic-New with Karlajulius Clark UPPER INSPECTOR 05/06/2020 Last Documented On 0 7:27PM ; [facility] Body mass index CPS Ast[facility] Clinic-New with Karla Amber UPPER INSPECTOR 05/06/2020 Last Documented On 0 7:27PM ; [facility] Chronic obstructive pulmonary disease CP S [facility] Clinic-New with Karla Amber UPPER INSPECTOR 05/06/2020 Last Documented On 0 7:27PM ; [facility] Overweight CPS Asthma Clinic-New with Karla Amber UPPER INSPECTOR 05/06/2020 Last Documented On 0 7:27PM ; [facility] Z11.4 - Encounter for screen ing for human immunodeficiency virus [HIV] CPS Ast[facility] Clinic-New with Karlajulius Floresen UPPER INSPECTOR 05/06/2020 Last Documented On 0 7:27PM ; [facility] Diabetes Risk Test Score was three score 03/31/2020 Medical Established Patient with Karla Amber UPPER INSPECTOR 03/31/2020 Last Documented On 0 3:22PM ; [facility] Overweight Medical Established Patient with Karla Amber UPPER INSPECTOR 03/31/2020 Last Documented On 0 3:22PM ; [facility] Z68.25 - Body mass index [BM I] 25.0-25.9, adult Medical Established Patient with Karlajulius Floresen UPPER INSPECTOR 03/31/2020 Last Documented On 0 3:22PM ; [facility] Encounter for Immunization Nurse Visit with Gary Clark UPPER INSPECTOR 03/14/2020 Last Documented On 0 5:11PM ; [facility] Body mass index Medical Established Patient with Karla Amber UPPER INSPECTOR 02/26/2020 Last Documented On 0 1:18PM ; [facility] Overweight Medical Established Patient with Karla Amber UPPER INSPECTOR 02/26/2020 Last Documented On 0 1:18PM ; [facility] Overweight Medical Established Patient with Karla Amber UPPER INSPECTOR 07/23/2019 Last Documented On 0 2:33PM ; [facility] Z68.27 - Body mass index (BM I) 27.0-27.9, adult Medical Established Patient with Karla Amber UPPER INSPECTOR 07/23/2019 Last Documented On 0 2:33PM ; [facility] Occasional asthma CPS- Asthma Clinic- F/U with A french Clark UPPER INSPECTOR 06/05/2019 Last Documented On 0 7:04PM ; [facility] Overweight CPS- Asthma Clinic- F/U with Alta Clark UPPER INSPECTOR 06/05/2019 Last Documented On 0 7:04PM ; [facility] Z68.27 - Body mass index (BM I) 27.0-27.9 adult CPS- Asthma Clinic- F/U with Karla Clark UPPER INSPECTOR 06/05/2019 Last Documented On 0 7:04PM ; [facility] Occasional asthma CPS Med Review with Karla dinh UPPER INSPECTOR 04/23/2019 Last Documented On 9 4:01PM ; [facility] Overweight CPS Med Review with Karla Clark UPPER INSPECTOR 04/23/2019 Last Documented On 9 4:01PM ; [facility] Z68.27 - Body mass index (BM I) 27.0-27.9 adult CPS Med Review with Karla Clark UPPER INSPECTOR 04/23/2019 Last Documented On 9 4:01PM ; [facility] Acute pharyngitis Medical Established Patient wi th Brandy Kelley UPPER INSPECTOR 04/15/2019 Last Documented On 9 12:31PM ; [facility] Asthmatic bronchitis with ac cahto exacerbation Medical Established Patient with Brandy Warren UPPER INSPECTOR 04/15/2019 Last Documented On 9 12:31PM ; [facility] Fagerstrom Score was two Medical Established Pat ient with Brandy Warren UPPER INSPECTOR 04/15/2019 Last Documented On 9 12:31PM ; [facility] PHQ-9: total score was three 04/15/2019 Medical Established Patient with Brandy Warren UPPER INSPECTOR 04/15/2019 Last Documented On 9 12:31PM ; [facility] Body mass index Medical Established Patient with Karla Clark UPPER INSPECTOR 03/05/2019 Last Documented On 9 10:27AM ; [facility] Diabetes Risk Test Score was three score Medical Established Patient with Karla Amber UPPER INSPECTOR 03/05/2019 Last Documented On 9 10:27AM ; [facility] Overweight Medical Established Patient with Karla Amber UPPER INSPECTOR 03/05/2019 Last Documented On 9 10:27AM ; [facility] Z68.28 - Body mass index (BM I) 28.0-28.9, adult Medical Established Patient with Karla Amber UPPER INSPECTOR 12/22/2018 Last Documented On 9 10:32AM ; [facility] Assess routine adult history and physical (18 - 64 yrs) Medical Established Patient with Karla Amber UPPER INSPECTOR 11/06/2018 Last Documented On 9 2:26PM ; [facility] Overweight Medical Established Patient with Karla Amber UPPER INSPECTOR 11/06/2018 Last Documented On 9 2:26PM ; [facility] Z68.28 - Body mass index (BM I) 28.0-28.9, adult Medical Established Patient with Karla Amber UPPER INSPECTOR 11/06/2018 Last Documented On 9 2:26PM ; [facility] Assess dysphagia Medical Established Patient wit h Karla Amber UPPER INSPECTOR 09/11/2018 Last Documented On 9 10:53AM ; [facility] Assess routine adult history and physical (18 - 64 yrs) Medical Established Patient with Karla Amber UPPER INSPECTOR 09/11/2018 Last Documented On 9 10:53AM ; [facility] Assess primary insomnia with sleep apnea Medical Established Patient with Karla Amber UPPER INSPECTOR 09/04/2018 Last Documented On 9 2:23PM ; [facility] Assess routine adult history and physical (18 - 64 yrs) Medical Established Patient with Karla Amber UPPER INSPECTOR 09/04/2018 Last Documented On 9 2:23PM ; [facility] Overweight Medical Established Patient with Karla Amber UPPER INSPECTOR 09/04/2018 Last Documented On 9 2:23PM ; [facility] Z68.29 - Body mass index (BM I) 29.0-29.9, adult Medical Established Patient with Karla Amber UPPER INSPECTOR 09/04/2018 Last Documented On 9 2:23PM ; [facility] Assess vaginal candidiasis Medical Estab lished Patient with Karla Clark CNP 07/31/2018 Last Documented On 9 2:12PM ; [facility] Work Phone: Evaluation note Includes: Assessments for all patient encounters Findings Encounter Date [M25.569 - Pain in unspecifi ed knee] arthralgia of knee / patella / tibia / fibula Medical Established Patient with Karla Clark CNP 08/27/2022 Last Documented On 3 9:20AM ; [facility] [Z68.24 - Body mass index [B ME] 24.0-24.9, adult] assessment of body mass index Medical Established Patient with Karla Clark CNP 08/27/2022 Last Documented On 3 9:20AM ; [facility] Intervention and counseling on cessation of tobacco use, 3-10 minutes Discussed medication and nicotine replacement for tobacco cessation Medical Established Patient with Karla Clark CNP 08/27/2022 Last Documented On 3 9:20AM ; [facility] Nicotine dependence Medical Established Patient with Karla Clark CNP 08/27/2022 Last Documented On 3 9:20AM ; [facility] Visit for routine adult H&P without abnormal findings Medical Established Patient with Karla Clark CNP 08/27/2022 Last Documented On 3 9:20AM ; [facility] [H92.02 - Otalgia, left ear] earache Med ical Established Patient with Karla Clark UPPER INSPECTOR 06/18/2022 Last Documented On 3 12:11PM ; [facility] [M79.604 - Pain in right leg ] pain in right leg Medical Established Patient with Karla Clark CNP 06/18/2022 Last Documented On 3 12:11PM ; [facility] [Z68.24 - Body mass index [B ME] 24.0-24.9, adult] assessment of body mass index Medical Established Patient with Karla Clark CNP 06/18/2022 Last Documented On 3 12:11PM ; [facility] Assessment of tobacco use Medical Establ ished Patient with Karla Clark UPPER INSPECTOR 06/18/2022 Last Documented On 3 12:11PM ; [facility] Diabetes Risk Test Score was four score 06/18/2022 Medical Established Patient with Karla Clark UPPER INSPECTOR 06/18/2022 Last Documented On 3 12:11PM ; [facility] Schizoaffective disorder Established Patient with Yin Feliz LPCC-S 03/20/2022 Last Documented On 2 12:13AM ; [facility] No cough Medical Established Patient with Karlaujlius Floresen UPPER INSPECTOR 12/20/2021 Last Documented On 2 3:12PM ; [facility] Visit for: screening for hum an immunodeficiency virus Medical Established Patient with Karla Clark UPPER INSPECTOR 12/20/2021 Last Documented On 2 3:12PM ; [facility] Z68.24 - Body mass index [BM I] 24.0-24.9, adult Medical Established Patient with Karla Clark UPPER INSPECTOR 12/20/2021 Last Documented On 2 3:12PM ; [facility] Bipolar disorder NOS BH Established Patient with Yin Feliz LPCC-S 11/03/2021 Last Documented On 2 7:00PM ; [facility] Bipolar schizoaffective disorder BH Esta blished Patient with Yin Feliz LPCC-S 11/03/2021 Last Documented On 2 7:00PM ; [facility] PLAN Medical Established Patient with Don Pino MD 11/03/2021 Last Documented On 2 10:40AM ; [facility] Abnormal electrocardiogram Medical Estab lished Patient with Don Pino MD 11/03/2021 Last Documented On 2 10:40AM ; [facility] Z68.24 - Body mass index [BM I] 24.0-24.9, adult Medical Established Patient with Don Pino MD 11/03/2021 Last Documented On 2 10:40AM ; [facility] Cough Medical Established Patient with Karla Clark UPPER INSPECTOR 07/28/2021 Last Documented On 2 2:01PM ; [facility] Intervention and counseling on cessation of tobacco use, 3-10 minutes Discussed medication and nicotine replacement for tobacco cessation Medical Established Patient with Karla Clark UPPER INSPECTOR 07/28/2021 Last Documented On 2 2:01PM ; [facility] Nicotine dependence Medical Established Patient with Karla Amber UPPER INSPECTOR 07/28/2021 Last Documented On 2 2:01PM ; [facility] Z68.24 - Body mass index [BM I] 24.0-24.9, adult Medical Established Patient with Karla Amber UPPER INSPECTOR 07/28/2021 Last Documented On 2 2:01PM ; [facility] Assess Colon screening Medical Established Patie nt with Karla Amber UPPER INSPECTOR 05/08/2021 Last Documented On 1 10:59AM ; [facility] Diabetes Risk Test Score was four score 05/08/2021 Medical Established Patient with Karla Amber UPPER INSPECTOR 05/08/2021 Last Documented On 1 10:59AM ; [facility] Routine adult history and ph ysical (18-64 yrs) without abnormal findings Medical Established Patient with Karla Amber UPPER INSPECTOR 05/08/2021 Last Documented On 1 10:59AM ; [facility] Z68.24 - Body mass index [BM I] 24.0-24.9, adult Medical Established Patient with Karla Amber UPPER INSPECTOR 05/08/2021 Last Documented On 1 10:59AM ; [facility] Z68.24 - Body mass index [BM I] 24.0-24.9, adult Medical Established Patient with Karla Amber UPPER INSPECTOR 06/17/2020 Last Documented On 1 10:30AM ; [facility] Overweight Medical Established Patient with Karla Amber UPPER INSPECTOR 06/06/2020 Last Documented On 1 2:06PM ; [facility] Z68.25 - Body mass index [BM I] 25.0-25.9, adult Medical Established Patient with Karla Amber UPPER INSPECTOR 06/06/2020 Last Documented On 1 2:06PM ; [facility] Antiasthmatics CPS Ast[facility] Clinic-New with Karlajulius Floresen UPPER INSPECTOR 05/06/2020 Last Documented On 0 7:27PM ; [facility] Assessment of tobacco use [facility]-New with Karla Amber UPPER INSPECTOR 05/06/2020 Last Documented On 0 7:27PM ; [facility] Body mass index CPS [facility]-New with Karla Amber UPPER INSPECTOR 05/06/2020 Last Documented On 0 7:27PM ; [facility] Chronic obstructive pulmonary disease CP S [facility] Clinic-New with Karla Amber UPPER INSPECTOR 05/06/2020 Last Documented On 0 7:27PM ; [facility] Overweight [facility] Asthma Clinic-New with Karla Amber UPPER INSPECTOR 05/06/2020 Last Documented On 0 7:27PM ; [facility] Z11.4 - Encounter for screen ing for human immunodeficiency virus [HIV] CPS Ast[facility] Clinic-New with Karlajulius Floresen UPPER INSPECTOR 05/06/2020 Last Documented On 0 7:27PM ; [facility] Diabetes Risk Test Score was three score 03/31/2020 Medical Established Patient with Karla Amber UPPER INSPECTOR 03/31/2020 Last Documented On 0 3:22PM ; [facility] Overweight Medical Established Patient with Karlajulius Floresen UPPER INSPECTOR 03/31/2020 Last Documented On 0 3:22PM ; [facility] Z68.25 - Body mass index [BM I] 25.0-25.9, adult Medical Established Patient with Karla Floresen UPPER INSPECTOR 03/31/2020 Last Documented On 0 3:22PM ; [facility] Encounter for Immunization Nurse Visit with Gary Clark UPPER INSPECTOR 03/14/2020 Last Documented On 0 5:11PM ; [facility] Body mass index Medical Established Patient with Karla Amber UPPER INSPECTOR 02/26/2020 Last Documented On 0 1:18PM ; [facility] Overweight Medical Established Patient with Karla Amber UPPER INSPECTOR 02/26/2020 Last Documented On 0 1:18PM ; [facility] Overweight Medical Established Patient with Karla Amber UPPER INSPECTOR 07/23/2019 Last Documented On 0 2:33PM ; [facility] Z68.27 - Body mass index (BM I) 27.0-27.9, adult Medical Established Patient with Karla Clark UPPER INSPECTOR 07/23/2019 Last Documented On 0 2:33PM ; [facility] Occasional asthma CPS- Asthma Clinic- F/U with A french Clark UPPER INSPECTOR 06/05/2019 Last Documented On 0 7:04PM ; [facility] Overweight CPS- Asthma Clinic- F/U with Alta Clark UPPER INSPECTOR 06/05/2019 Last Documented On 0 7:04PM ; [facility] Z68.27 - Body mass index (BM I) 27.0-27.9 adult CPS- Asthma Clinic- F/U with Karla Clark UPPER INSPECTOR 06/05/2019 Last Documented On 0 7:04PM ; [facility] Occasional asthma CPS Med Review with Karla Flores allegra UPPER INSPECTOR 04/23/2019 Last Documented On 9 4:01PM ; [facility] Overweight CPS Med Review with Karla Clark UPPER INSPECTOR 04/23/2019 Last Documented On 9 4:01PM ; [facility] Z68.27 - Body mass index (BM I) 27.0-27.9 adult CPS Med Review with Karla Clark UPPER INSPECTOR 04/23/2019 Last Documented On 9 4:01PM ; [facility] Acute pharyngitis Medical Established Patient wi th Brandy Warren UPPER INSPECTOR 04/15/2019 Last Documented On 9 12:31PM ; [facility] Asthmatic bronchitis with ac cahto exacerbation Medical Established Patient with Brandy Warren UPPER INSPECTOR 04/15/2019 Last Documented On 9 12:31PM ; [facility] Fagerstrom Score was two Medical Established Pat ient with Brandy Warren UPPER INSPECTOR 04/15/2019 Last Documented On 9 12:31PM ; [facility] PHQ-9: total score was three 04/15/2019 Medical Established Patient with Brandy Warren UPPER INSPECTOR 04/15/2019 Last Documented On 9 12:31PM ; [facility] Body mass index Medical Established Patient with Karla Amber UPPER INSPECTOR 03/05/2019 Last Documented On 9 10:27AM ; [facility] Diabetes Risk Test Score was three score Medical Established Patient with Karla Amber UPPER INSPECTOR 03/05/2019 Last Documented On 9 10:27AM ; [facility] Overweight Medical Established Patient with Karla Amber UPPER INSPECTOR 03/05/2019 Last Documented On 9 10:27AM ; [facility] Z68.28 - Body mass index (BM I) 28.0-28.9, adult Medical Established Patient with Karla Amber UPPER INSPECTOR 12/22/2018 Last Documented On 9 10:32AM ; [facility] Assess routine adult history and physical (18 - 64 yrs) Medical Established Patient with Karla Amber UPPER INSPECTOR 11/06/2018 Last Documented On 9 2:26PM ; [facility] Overweight Medical Established Patient with Karla Amber UPPER INSPECTOR 11/06/2018 Last Documented On 9 2:26PM ; [facility] Z68.28 - Body mass index (BM I) 28.0-28.9, adult Medical Established Patient with Karla Amber UPPER INSPECTOR 11/06/2018 Last Documented On 9 2:26PM ; [facility] Assess dysphagia Medical Established Patient wit h Karla Amber UPPER INSPECTOR 09/11/2018 Last Documented On 9 10:53AM ; [facility] Assess routine adult history and physical (18 - 64 yrs) Medical Established Patient with Karla Amber UPPER INSPECTOR 09/11/2018 Last Documented On 9 10:53AM ; [facility] Assess primary insomnia with sleep apnea Medical Established Patient with Karla Amber UPPER INSPECTOR 09/04/2018 Last Documented On 9 2:23PM ; [facility] Assess routine adult history and physical (18 - 64 yrs) Medical Established Patient with Karla Amber UPPER INSPECTOR 09/04/2018 Last Documented On 9 2:23PM ; [facility] Overweight Medical Established Patient with Karla Amber UPPER INSPECTOR 09/04/2018 Last Documented On 9 2:23PM ; [facility] Z68.29 - Body mass index (BM I) 29.0-29.9, adult Medical Established Patient with Karla Clark UPPER INSPECTOR 09/04/2018 Last Documented On 9 2:23PM ; [facility] Assess vaginal candidiasis Medical Estab lished Patient with Karlajulius Clark UPPER INSPECTOR 07/31/2018 Last Documented On 9 2:12PM ; [facility] Work Phone: Evaluation noteNo assessment information available [facility] Work Phone: [facility]No [facility] [place] Other Evaluation note Includes: Assessments for all patient encounters Findings Encounter Date [J20.9 - Acute bronchitis, unspecified] acute bronchitis Medical Established Patient with Karla Clark UPPER INSPECTOR 11/19/2022 Last Documented On 3 10:15AM ; [facility] [M79.621 - Pain in right upp er arm] pain in upper arm Medical Established Patient with Karla Clark UPPER INSPECTOR 11/19/2022 Last Documented On 3 10:15AM ; [facility] [Z68.23 - Body mass index [B ME] 23.0-23.9, adult] assessment of body mass index Medical Established Patient with Karla Clark UPPER INSPECTOR 11/19/2022 Last Documented On 3 10:15AM ; [facility] [M79.601 - Pain in right arm ] pain in right arm Medical Established Patient with Karla Clark UPPER INSPECTOR 09/18/2022 Last Documented On 3 2:33PM ; [facility] [Z68.24 - Body mass index [B ME] 24.0-24.9, adult] assessment of body mass index Medical Established Patient with Karla Clark UPPER INSPECTOR 09/18/2022 Last Documented On 3 2:33PM ; [facility] Assessment of tobacco use Medical Establ ished Patient with Karlajulius Clark UPPER INSPECTOR 09/18/2022 Last Documented On 3 2:33PM ; [facility] [M25.569 - Pain in unspecifi ed knee] arthralgia of knee / patella / tibia / fibula Medical Established Patient with Karla Clark UPPER INSPECTOR 08/27/2022 Last Documented On 3 9:20AM ; [facility] [Z68.24 - Body mass index [B ME] 24.0-24.9, adult] assessment of body mass index Medical Established Patient with Karla Clark UPPER INSPECTOR 08/27/2022 Last Documented On 3 9:20AM ; [facility] Intervention and counseling on cessation of tobacco use, 3-10 minutes Discussed medication and nicotine replacement for tobacco cessation Medical Established Patient with Karla Clark UPPER INSPECTOR 08/27/2022 Last Documented On 3 9:20AM ; [facility] Nicotine dependence Medical Established Patient with Karla Clark CNP 08/27/2022 Last Documented On 3 9:20AM ; [facility] Visit for routine adult H&P without abnormal findings Medical Established Patient with Karla Clark CNP 08/27/2022 Last Documented On 3 9:20AM ; [facility] [H92.02 - Otalgia, left ear] earache Med ical Established Patient with Karla Clark UPPER INSPECTOR 06/18/2022 Last Documented On 3 12:11PM ; [facility] [M79.604 - Pain in right leg ] pain in right leg Medical Established Patient with Karla Clark UPPER INSPECTOR 06/18/2022 Last Documented On 3 12:11PM ; [facility] [Z68.24 - Body mass index [B ME] 24.0-24.9, adult] assessment of body mass index Medical Established Patient with Karla Clark UPPER INSPECTOR 06/18/2022 Last Documented On 3 12:11PM ; [facility] Assessment of tobacco use Medical Establ ished Patient with Karla Clark UPPER INSPECTOR 06/18/2022 Last Documented On 3 12:11PM ; [facility] Diabetes Risk Test Score was four score 06/18/2022 Medical Established Patient with Karla Clark UPPER INSPECTOR 06/18/2022 Last Documented On 3 12:11PM ; [facility] Schizoaffective disorder Established Patient with Yin Feliz LPCC-S 03/20/2022 Last Documented On 2 12:13AM ; [facility] No cough Medical Established Patient with Karlajulius Clark UPPER INSPECTOR 12/20/2021 Last Documented On 2 3:12PM ; [facility] Visit for: screening for hum an immunodeficiency virus Medical Established Patient with Karlajulius Floresen UPPER INSPECTOR 12/20/2021 Last Documented On 2 3:12PM ; [facility] Z68.24 - Body mass index [BM I] 24.0-24.9, adult Medical Established Patient with Karla Clark UPPER INSPECTOR 12/20/2021 Last Documented On 2 3:12PM ; [facility] Bipolar disorder NOS BH Established Patient with Yin Fleiz LPCC-S 11/03/2021 Last Documented On 2 7:00PM ; [facility] Bipolar schizoaffective disorder BH Esta blished Patient with Yin Feliz LPCC-S 11/03/2021 Last Documented On 2 7:00PM ; [facility] PLAN Medical Established Patient with Don Pino MD 11/03/2021 Last Documented On 2 10:40AM ; [facility] Abnormal electrocardiogram Medical Estab lished Patient with Don Pino MD 11/03/2021 Last Documented On 2 10:40AM ; [facility] Z68.24 - Body mass index [BM I] 24.0-24.9, adult Medical Established Patient with Don Pino MD 11/03/2021 Last Documented On 2 10:40AM ; [facility] Cough Medical Established Patient with Karla Clark UPPER INSPECTOR 07/28/2021 Last Documented On 2 2:01PM ; [facility] Intervention and counseling on cessation of tobacco use, 3-10 minutes Discussed medication and nicotine replacement for tobacco cessation Medical Established Patient with Karlajulius Floresen UPPER INSPECTOR 07/28/2021 Last Documented On 2 2:01PM ; [facility] Nicotine dependence Medical Established Patient with Karlajulius Floresen UPPER INSPECTOR 07/28/2021 Last Documented On 2 2:01PM ; [facility] Z68.24 - Body mass index [BM I] 24.0-24.9, adult Medical Established Patient with Karla Amber UPPER INSPECTOR 07/28/2021 Last Documented On 2 2:01PM ; [facility] Assess Colon screening Medical Established Patie nt with Karla Amber UPPER INSPECTOR 05/08/2021 Last Documented On 1 10:59AM ; [facility] Diabetes Risk Test Score was four score 05/08/2021 Medical Established Patient with Karla Amber UPPER INSPECTOR 05/08/2021 Last Documented On 1 10:59AM ; [facility] Routine adult history and ph ysical (18-64 yrs) without abnormal findings Medical Established Patient with Karla Amber UPPER INSPECTOR 05/08/2021 Last Documented On 1 10:59AM ; [facility] Z68.24 - Body mass index [BM I] 24.0-24.9, adult Medical Established Patient with Karla Amber UPPER INSPECTOR 05/08/2021 Last Documented On 1 10:59AM ; [facility] Z68.24 - Body mass index [BM I] 24.0-24.9, adult Medical Established Patient with Karla Amber UPPER INSPECTOR 06/17/2020 Last Documented On 1 10:30AM ; [facility] Overweight Medical Established Patient with Karla Amber UPPER INSPECTOR 06/06/2020 Last Documented On 1 2:06PM ; [facility] Z68.25 - Body mass index [BM I] 25.0-25.9, adult Medical Established Patient with Karla Amber UPPER INSPECTOR 06/06/2020 Last Documented On 1 2:06PM ; [facility] Antiasthmatics CPS Asthma Clinic-New with Karla Amber UPPER INSPECTOR 05/06/2020 Last Documented On 0 7:27PM ; [facility] Assessment of tobacco use [facility] Asthma Clinic-New with Karla Amber UPPER INSPECTOR 05/06/2020 Last Documented On 0 7:27PM ; [facility] Body mass index [facility] Asthma Clinic-New with Karla Amber UPPER INSPECTOR 05/06/2020 Last Documented On 0 7:27PM ; [facility] Chronic obstructive pulmonary disease CP S [facility] Clinic-New with Karla Clark UPPER INSPECTOR 05/06/2020 Last Documented On 0 7:27PM ; [facility] Overweight [facility]PS [facility] Clinic-New with Karla Floresen UPPER INSPECTOR 05/06/2020 Last Documented On 0 7:27PM ; [facility] Z11.4 - Encounter for screen ing for human immunodeficiency virus [HIV] CPS Ast[facility] Clinic-New with Karla Floresen UPPER INSPECTOR 05/06/2020 Last Documented On 0 7:27PM ; [facility] Diabetes Risk Test Score was three score 03/31/2020 Medical Established Patient with Karlajulius Floresen UPPER INSPECTOR 03/31/2020 Last Documented On 0 3:22PM ; [facility] Overweight Medical Established Patient with Karlajulius Floresen UPPER INSPECTOR 03/31/2020 Last Documented On 0 3:22PM ; [facility] Z68.25 - Body mass index [BM I] 25.0-25.9, adult Medical Established Patient with Karla Clark UPPER INSPECTOR 03/31/2020 Last Documented On 0 3:22PM ; [facility] Encounter for Immunization Nurse Visit with Gary Clark UPPER INSPECTOR 03/14/2020 Last Documented On 0 5:11PM ; [facility] Body mass index Medical Established Patient with Karla Floresen UPPER INSPECTOR 02/26/2020 Last Documented On 0 1:18PM ; [facility] Overweight Medical Established Patient with Karla Floresen UPPER INSPECTOR 02/26/2020 Last Documented On 0 1:18PM ; [facility] Overweight Medical Established Patient with Karla Floresen UPPER INSPECTOR 07/23/2019 Last Documented On 0 2:33PM ; [facility] Z68.27 - Body mass index (BM I) 27.0-27.9, adult Medical Established Patient with Karla Floresen UPPER INSPECTOR 07/23/2019 Last Documented On 0 2:33PM ; [facility] Occasional asthma CPS- Asthma Clinic- F/U with A french Clark UPPER INSPECTOR 06/05/2019 Last Documented On 0 7:04PM ; [facility] Overweight CPS- Asthma Clinic- F/U with Aim julius Clark UPPER INSPECTOR 06/05/2019 Last Documented On 0 7:04PM ; [facility] Z68.27 - Body mass index (BM I) 27.0-27.9 adult CPS- Asthma Clinic- F/U with Karla Clark UPPER INSPECTOR 06/05/2019 Last Documented On 0 7:04PM ; [facility] Occasional asthma CPS Med Review with Karlajulius dinh UPPER INSPECTOR 04/23/2019 Last Documented On 9 4:01PM ; [facility] Overweight CPS Med Review with Karlajulius Clark UPPER INSPECTOR 04/23/2019 Last Documented On 9 4:01PM ; [facility] Z68.27 - Body mass index (BM I) 27.0-27.9 adult CPS Med Review with Karla Clark UPPER INSPECTOR 04/23/2019 Last Documented On 9 4:01PM ; [facility] Acute pharyngitis Medical Established Patient wi th Brandy Serranoer [facility] 04/15/2019 Last Documented On 9 12:31PM ; [facility] Asthmatic bronchitis with ac cahto exacerbation Medical Established Patient with Brandy Warren UPPER INSPECTOR 04/15/2019 Last Documented On 9 12:31PM ; [facility] Fagerstrom Score was two Medical Established Pat ient with Brandy Warren UPPER INSPECTOR 04/15/2019 Last Documented On 9 12:31PM ; [facility] PHQ-9: total score was three 04/15/2019 Medical Established Patient with Brandy Warren UPPER INSPECTOR 04/15/2019 Last Documented On 9 12:31PM ; [facility] Body mass index Medical Established Patient with Karla Clark UPPER INSPECTOR 03/05/2019 Last Documented On 9 10:27AM ; [facility] Diabetes Risk Test Score was three score Medical Established Patient with Karlajulius Floresen UPPER INSPECTOR 03/05/2019 Last Documented On 9 10:27AM ; [facility] Overweight Medical Established Patient with Karla Amber UPPER INSPECTOR 03/05/2019 Last Documented On 9 10:27AM ; [facility] Z68.28 - Body mass index (BM I) 28.0-28.9, adult Medical Established Patient with Karla Amber UPPER INSPECTOR 12/22/2018 Last Documented On 9 10:32AM ; [facility] Assess routine adult history and physical (18 - 64 yrs) Medical Established Patient with Karla Amber UPPER INSPECTOR 11/06/2018 Last Documented On 9 2:26PM ; [facility] Overweight Medical Established Patient with Karla Amber UPPER INSPECTOR 11/06/2018 Last Documented On 9 2:26PM ; [facility] Z68.28 - Body mass index (BM I) 28.0-28.9, adult Medical Established Patient with Karla Amber UPPER INSPECTOR 11/06/2018 Last Documented On 9 2:26PM ; [facility] Assess dysphagia Medical Established Patient wit h Karla Amber UPPER INSPECTOR 09/11/2018 Last Documented On 9 10:53AM ; [facility] Assess routine adult history and physical (18 - 64 yrs) Medical Established Patient with Karla Amber UPPER INSPECTOR 09/11/2018 Last Documented On 9 10:53AM ; [facility] Assess primary insomnia with sleep apnea Medical Established Patient with Karla Amber UPPER INSPECTOR 09/04/2018 Last Documented On 9 2:23PM ; [facility] Assess routine adult history and physical (18 - 64 yrs) Medical Established Patient with Karla Ambre UPPER INSPECTOR 09/04/2018 Last Documented On 9 2:23PM ; [facility] Overweight Medical Established Patient with Karla Amber UPPER INSPECTOR 09/04/2018 Last Documented On 9 2:23PM ; [facility] Z68.29 - Body mass index (BM I) 29.0-29.9, adult Medical Established Patient with Karla Amber UPPER INSPECTOR 09/04/2018 Last Documented On 9 2:23PM ; [facility] Assess vaginal candidiasis Medical Estab lished Patient with Karla Amber UPPER INSPECTOR 07/31/2018 Last Documented On 9 2:12PM ; [facility] Work Phone: Evaluation note Includes: Assessments for all patient encounters Findings Encounter Date [Z12.39 - Encounter for othe r screening for malignant neoplasm of breast] visit for: screening for malignant breast neoplasm Medical Established Patient with Aaron Whitaker UPPER INSPECTOR 02/28/2023 Last Documented On 3 9:51AM ; [facility] [Z68.24 - Body mass index [B ME] 24.0-24.9, adult] assessment of body mass index Medical Established Patient with Aaron Whitaker UPPER INSPECTOR 02/28/2023 Last Documented On 3 9:51AM ; [facility] Assessment of tobacco use Medical Establ ished Patient with Aaron Whitaker UPPER INSPECTOR 02/28/2023 Last Documented On 3 9:51AM ; [facility] Chronic obstructive pulmonary disease Me dical Established Patient with Aaron Whitaker UPPER INSPECTOR 02/28/2023 Last Documented On 3 9:51AM ; [facility] [J20.9 - Acute bronchitis, unspecified] acute bronchitis Medical Established Patient with Karla Clark UPPER INSPECTOR 11/19/2022 Last Documented On 3 10:15AM ; [facility] [M79.621 - Pain in right upp er arm] pain in upper arm Medical Established Patient with Karla Clark UPPER INSPECTOR 11/19/2022 Last Documented On 3 10:15AM ; [facility] [Z68.23 - Body mass index [B ME] 23.0-23.9, adult] assessment of body mass index Medical Established Patient with Karla Clark UPPER INSPECTOR 11/19/2022 Last Documented On 3 10:15AM ; [facility] [M79.601 - Pain in right arm ] pain in right arm Medical Established Patient with Karla Clark UPPER INSPECTOR 09/18/2022 Last Documented On 3 2:33PM ; [facility] [Z68.24 - Body mass index [B ME] 24.0-24.9, adult] assessment of body mass index Medical Established Patient with Karla Clark UPPER INSPECTOR 09/18/2022 Last Documented On 3 2:33PM ; [facility] Assessment of tobacco use Medical Establ ished Patient with Karla Clark CNP 09/18/2022 Last Documented On 3 2:33PM ; [facility] [M25.569 - Pain in unspecifi ed knee] arthralgia of knee / patella / tibia / fibula Medical Established Patient with Karla Clark CNP 08/27/2022 Last Documented On 3 9:20AM ; [facility] [Z68.24 - Body mass index [B ME] 24.0-24.9, adult] assessment of body mass index Medical Established Patient with Karla Clark CNP 08/27/2022 Last Documented On 3 9:20AM ; [facility] Intervention and counseling on cessation of tobacco use, 3-10 minutes Discussed medication and nicotine replacement for tobacco cessation Medical Established Patient with Karla Clark CNP 08/27/2022 Last Documented On 3 9:20AM ; [facility] Nicotine dependence Medical Established Patient with Karla Clark CNP 08/27/2022 Last Documented On 3 9:20AM ; [facility] Visit for routine adult H&P without abnormal findings Medical Established Patient with Karla Clark CNP 08/27/2022 Last Documented On 3 9:20AM ; [facility] [H92.02 - Otalgia, left ear] earache Med ical Established Patient with Karla Clark UPPER INSPECTOR 06/18/2022 Last Documented On 3 12:11PM ; [facility] [M79.604 - Pain in right leg ] pain in right leg Medical Established Patient with Karla Clark UPPER INSPECTOR 06/18/2022 Last Documented On 3 12:11PM ; [facility] [Z68.24 - Body mass index [B ME] 24.0-24.9, adult] assessment of body mass index Medical Established Patient with Karla Clark UPPER INSPECTOR 06/18/2022 Last Documented On 3 12:11PM ; [facility] Assessment of tobacco use Medical Establ ished Patient with Karla Clark CNP 06/18/2022 Last Documented On 3 12:11PM ; [facility] Diabetes Risk Test Score was four score 06/18/2022 Medical Established Patient with Karlajulius Clark UPPER INSPECTOR 06/18/2022 Last Documented On 3 12:11PM ; [facility] Schizoaffective disorder Established Patient with Yin Feliz LPCC-S 03/20/2022 Last Documented On 2 12:13AM ; [facility] No cough Medical Established Patient with Karla Amber UPPER INSPECTOR 12/20/2021 Last Documented On 2 3:12PM ; [facility] Visit for: screening for hum an immunodeficiency virus Medical Established Patient with Karla Amber UPPER INSPECTOR 12/20/2021 Last Documented On 2 3:12PM ; [facility] Z68.24 - Body mass index [BM I] 24.0-24.9, adult Medical Established Patient with Karla Clark UPPER INSPECTOR 12/20/2021 Last Documented On 2 3:12PM ; [facility] Bipolar disorder NOS Established Patient with Yin Feliz LPCC-S 11/03/2021 Last Documented On 2 7:00PM ; [facility] Bipolar schizoaffective disorder BH Esta blished Patient with Yin Feliz LPCC-S 11/03/2021 Last Documented On 2 7:00PM ; [facility] PLAN Medical Established Patient with Don Pino MD 11/03/2021 Last Documented On 2 10:40AM ; [facility] Abnormal electrocardiogram Medical Estab lished Patient with Don Pino MD 11/03/2021 Last Documented On 2 10:40AM ; [facility] Z68.24 - Body mass index [BM I] 24.0-24.9, adult Medical Established Patient with Don Pino MD 11/03/2021 Last Documented On 2 10:40AM ; [facility] Cough Medical Established Patient with Karla Clark UPPER INSPECTOR 07/28/2021 Last Documented On 2 2:01PM ; [facility] Intervention and counseling on cessation of tobacco use, 3-10 minutes Discussed medication and nicotine replacement for tobacco cessation Medical Established Patient with Karla Amber UPPER INSPECTOR 07/28/2021 Last Documented On 2 2:01PM ; [facility] Nicotine dependence Medical Established Patient with Karla Amber UPPER INSPECTOR 07/28/2021 Last Documented On 2 2:01PM ; [facility] Z68.24 - Body mass index [BM I] 24.0-24.9, adult Medical Established Patient with Karla Amber UPPER INSPECTOR 07/28/2021 Last Documented On 2 2:01PM ; [facility] Assess Colon screening Medical Established Patie nt with Karla Amber UPPER INSPECTOR 05/08/2021 Last Documented On 1 10:59AM ; [facility] Diabetes Risk Test Score was four score 05/08/2021 Medical Established Patient with Karla Amber UPPER INSPECTOR 05/08/2021 Last Documented On 1 10:59AM ; [facility] Routine adult history and ph ysical (18-64 yrs) without abnormal findings Medical Established Patient with Karla Amber UPPER INSPECTOR 05/08/2021 Last Documented On 1 10:59AM ; [facility] Z68.24 - Body mass index [BM I] 24.0-24.9, adult Medical Established Patient with Karla Amber UPPER INSPECTOR 05/08/2021 Last Documented On 1 10:59AM ; [facility] Z68.24 - Body mass index [BM I] 24.0-24.9, adult Medical Established Patient with Karla Amber UPPER INSPECTOR 06/17/2020 Last Documented On 1 10:30AM ; [facility] Overweight Medical Established Patient with Karla Amber UPPER INSPECTOR 06/06/2020 Last Documented On 1 2:06PM ; [facility] Z68.25 - Body mass index [BM I] 25.0-25.9, adult Medical Established Patient with Karla Amber UPPER INSPECTOR 06/06/2020 Last Documented On 1 2:06PM ; [facility] Antiasthmatics [facility] Asthma Clinic-New with Karla Clark UPPER INSPECTOR 05/06/2020 Last Documented On 0 7:27PM ; [facility] Assessment of tobacco use [facility] Asthma Clinic-New with Karlajulius Floresen UPPER INSPECTOR 05/06/2020 Last Documented On 0 7:27PM ; [facility] Body mass index CPS [facility]-New with Karla Amber UPPER INSPECTOR 05/06/2020 Last Documented On 0 7:27PM ; [facility] Chronic obstructive pulmonary disease CP S [facility]-New with Karla Amber UPPER INSPECTOR 05/06/2020 Last Documented On 0 7:27PM ; [facility] Overweight CPS [facility]-New with Karla Amber UPPER INSPECTOR 05/06/2020 Last Documented On 0 7:27PM ; [facility] Z11.4 - Encounter for screen ing for human immunodeficiency virus [HIV] CPS [facility]-New with Karla Amber UPPER INSPECTOR 05/06/2020 Last Documented On 0 7:27PM ; [facility] Diabetes Risk Test Score was three score 03/31/2020 Medical Established Patient with Karla Amber UPPER INSPECTOR 03/31/2020 Last Documented On 0 3:22PM ; [facility] Overweight Medical Established Patient with Karla Amber UPPER INSPECTOR 03/31/2020 Last Documented On 0 3:22PM ; [facility] Z68.25 - Body mass index [BM I] 25.0-25.9, adult Medical Established Patient with Karla Amber UPPER INSPECTOR 03/31/2020 Last Documented On 0 3:22PM ; [facility] Encounter for Immunization Nurse Visit with Gary Clark UPPER INSPECTOR 03/14/2020 Last Documented On 0 5:11PM ; [facility] Body mass index Medical Established Patient with Karla Amber UPPER INSPECTOR 02/26/2020 Last Documented On 0 1:18PM ; [facility] Overweight Medical Established Patient with Karla Amber UPPER INSPECTOR 02/26/2020 Last Documented On 0 1:18PM ; [facility] Overweight Medical Established Patient with Karla Amber UPPER INSPECTOR 07/23/2019 Last Documented On 0 2:33PM ; [facility] Z68.27 - Body mass index (BM I) 27.0-27.9, adult Medical Established Patient with Karla Amber UPPER INSPECTOR 07/23/2019 Last Documented On 0 2:33PM ; [facility] Occasional asthma CPS- Asthma Clinic- F/U with A french Clark UPPER INSPECTOR 06/05/2019 Last Documented On 0 7:04PM ; [facility] Overweight CPS- Asthma Clinic- F/U with Alta Clark UPPER INSPECTOR 06/05/2019 Last Documented On 0 7:04PM ; [facility] Z68.27 - Body mass index (BM I) 27.0-27.9 adult CPS- Asthma Clinic- F/U with Karla Clark UPPER INSPECTOR 06/05/2019 Last Documented On 0 7:04PM ; [facility] Occasional asthma CPS Med Review with Karla dinh UPPER INSPECTOR 04/23/2019 Last Documented On 9 4:01PM ; [facility] Overweight CPS Med Review with Karla Clark UPPER INSPECTOR 04/23/2019 Last Documented On 9 4:01PM ; [facility] Z68.27 - Body mass index (BM I) 27.0-27.9 adult CPS Med Review with Karla Clark UPPER INSPECTOR 04/23/2019 Last Documented On 9 4:01PM ; [facility] Acute pharyngitis Medical Established Patient wi th Brandy Serranoer UPPER INSPECTOR 04/15/2019 Last Documented On 9 12:31PM ; [facility] Asthmatic bronchitis with ac cahto exacerbation Medical Established Patient with Brandy Warren UPPER INSPECTOR 04/15/2019 Last Documented On 9 12:31PM ; [facility] Fagerstrom Score was two Medical Established Pat ient with Brandy Warren UPPER INSPECTOR 04/15/2019 Last Documented On 9 12:31PM ; [facility] PHQ-9: total score was three 04/15/2019 Medical Established Patient with Brandy Warren UPPER INSPECTOR 04/15/2019 Last Documented On 9 12:31PM ; [facility] Body mass index Medical Established Patient with Karla Clark UPPER INSPECTOR 03/05/2019 Last Documented On 9 10:27AM ; [facility] Diabetes Risk Test Score was three score Medical Established Patient with Karla Amber UPPER INSPECTOR 03/05/2019 Last Documented On 9 10:27AM ; [facility] Overweight Medical Established Patient with Karla Amber UPPER INSPECTOR 03/05/2019 Last Documented On 9 10:27AM ; [facility] Z68.28 - Body mass index (BM I) 28.0-28.9, adult Medical Established Patient with Karla Amber UPPER INSPECTOR 12/22/2018 Last Documented On 9 10:32AM ; [facility] Assess routine adult history and physical (18 - 64 yrs) Medical Established Patient with Karla Amber UPPER INSPECTOR 11/06/2018 Last Documented On 9 2:26PM ; [facility] Overweight Medical Established Patient with Karla Amber UPPER INSPECTOR 11/06/2018 Last Documented On 9 2:26PM ; [facility] Z68.28 - Body mass index (BM I) 28.0-28.9, adult Medical Established Patient with Karla Amber UPPER INSPECTOR 11/06/2018 Last Documented On 9 2:26PM ; [facility] Assess dysphagia Medical Established Patient wit h Karla Amber UPPER INSPECTOR 09/11/2018 Last Documented On 9 10:53AM ; [facility] Assess routine adult history and physical (18 - 64 yrs) Medical Established Patient with Karla Amber UPPER INSPECTOR 09/11/2018 Last Documented On 9 10:53AM ; [facility] Assess primary insomnia with sleep apnea Medical Established Patient with Karla Amber UPPER INSPECTOR 09/04/2018 Last Documented On 9 2:23PM ; [facility] Assess routine adult history and physical (18 - 64 yrs) Medical Established Patient with Karla Amber UPPER INSPECTOR 09/04/2018 Last Documented On 9 2:23PM ; [facility] Overweight Medical Established Patient with Karla Amber UPPER INSPECTOR 09/04/2018 Last Documented On 9 2:23PM ; [facility] Z68.29 - Body mass index (BM I) 29.0-29.9, adult Medical Established Patient with Karla Amber UPPER INSPECTOR 09/04/2018 Last Documented On 9 2:23PM ; [facility] Assess vaginal candidiasis Medical Estab lished Patient with Karla Clark UPPER INSPECTOR 07/31/2018 Last Documented On 9 2:12PM ; [facility] Work Phone: Evaluation note* Diagnosis Onset Date Resolution Status Abdominal pain acute Flank pain acute Hypertension acute Prolonged Q-T interval on ECG acute [facility] Work Phone: Evaluation note Includes: Assessments for all patient encounters Findings Encounter Date [R30.0 - Dysuria] Dysuria Chart Update with Gayr Clark UPPER INSPECTOR 03/21/2023 Last Documented On 3 11:27AM ; [facility] [Z12.39 - Encounter for othe r screening for malignant neoplasm of breast] visit for: screening for malignant breast neoplasm Medical Established Patient with Aaron Whitaker UPPER INSPECTOR 02/28/2023 Last Documented On 3 9:51AM ; [facility] [Z68.24 - Body mass index [B ME] 24.0-24.9, adult] assessment of body mass index Medical Established Patient with Aaron Whitaker UPPER INSPECTOR 02/28/2023 Last Documented On 3 9:51AM ; [facility] Assessment of tobacco use Medical Establ ished Patient with Aaron Whitaker UPPER INSPECTOR 02/28/2023 Last Documented On 3 9:51AM ; [facility] Chronic obstructive pulmonary disease Me dical Established Patient with Aaron Whitaker UPPER INSPECTOR 02/28/2023 Last Documented On 3 9:51AM ; [facility] [J20.9 - Acute bronchitis, unspecified] acute bronchitis Medical Established Patient with Karla Clark UPPER INSPECTOR 11/19/2022 Last Documented On 3 10:15AM ; [facility] [M79.621 - Pain in right upp er arm] pain in upper arm Medical Established Patient with Karla Clark UPPER INSPECTOR 11/19/2022 Last Documented On 3 10:15AM ; [facility] [Z68.23 - Body mass index [B ME] 23.0-23.9, adult] assessment of body mass index Medical Established Patient with Karla Clark CNP 11/19/2022 Last Documented On 3 10:15AM ; [facility] [M79.601 - Pain in right arm ] pain in right arm Medical Established Patient with Karla Clark CNP 09/18/2022 Last Documented On 3 2:33PM ; [facility] [Z68.24 - Body mass index [B ME] 24.0-24.9, adult] assessment of body mass index Medical Established Patient with Karla Clark CNP 09/18/2022 Last Documented On 3 2:33PM ; [facility] Assessment of tobacco use Medical Establ ished Patient with Karla Clark CNP 09/18/2022 Last Documented On 3 2:33PM ; [facility] [M25.569 - Pain in unspecifi ed knee] arthralgia of knee / patella / tibia / fibula Medical Established Patient with Karla Clark CNP 08/27/2022 Last Documented On 3 9:20AM ; [facility] [Z68.24 - Body mass index [B ME] 24.0-24.9, adult] assessment of body mass index Medical Established Patient with Karla Clark CNP 08/27/2022 Last Documented On 3 9:20AM ; [facility] Intervention and counseling on cessation of tobacco use, 3-10 minutes Discussed medication and nicotine replacement for tobacco cessation Medical Established Patient with Karla Clark CNP 08/27/2022 Last Documented On 3 9:20AM ; [facility] Nicotine dependence Medical Established Patient with Karla Clark CNP 08/27/2022 Last Documented On 3 9:20AM ; [facility] Visit for routine adult H&P without abnormal findings Medical Established Patient with Karla Clark CNP 08/27/2022 Last Documented On 3 9:20AM ; [facility] [H92.02 - Otalgia, left ear] earache Med ical Established Patient with Karla Clark CNP 06/18/2022 Last Documented On 3 12:11PM ; [facility] [M79.604 - Pain in right leg ] pain in right leg Medical Established Patient with Karla Clark UPPER INSPECTOR 06/18/2022 Last Documented On 3 12:11PM ; [facility] [Z68.24 - Body mass index [B ME] 24.0-24.9, adult] assessment of body mass index Medical Established Patient with Karla Clark UPPER INSPECTOR 06/18/2022 Last Documented On 3 12:11PM ; [facility] Assessment of tobacco use Medical Establ ished Patient with Karla Clark UPPER INSPECTOR 06/18/2022 Last Documented On 3 12:11PM ; [facility] Diabetes Risk Test Score was four score 06/18/2022 Medical Established Patient with Karla Clark UPPER INSPECTOR 06/18/2022 Last Documented On 3 12:11PM ; [facility] Schizoaffective disorder Established Patient with Yin Feliz LPCC-S 03/20/2022 Last Documented On 2 12:13AM ; [facility] No cough Medical Established Patient with Karla Clark UPPER INSPECTOR 12/20/2021 Last Documented On 2 3:12PM ; [facility] Visit for: screening for hum an immunodeficiency virus Medical Established Patient with Karla Clark UPPER INSPECTOR 12/20/2021 Last Documented On 2 3:12PM ; [facility] Z68.24 - Body mass index [BM I] 24.0-24.9, adult Medical Established Patient with Karla Clark UPPER INSPECTOR 12/20/2021 Last Documented On 2 3:12PM ; [facility] Bipolar disorder NOS Established Patient with Yin Feliz LPCC-S 11/03/2021 Last Documented On 2 7:00PM ; [facility] Bipolar schizoaffective disorder BH Esta blished Patient with Yin Feliz LPCC-S 11/03/2021 Last Documented On 2 7:00PM ; [facility] PLAN Medical Established Patient with Don Pino MD 11/03/2021 Last Documented On 2 10:40AM ; [facility] Abnormal electrocardiogram Medical Estab lished Patient with Don Pino MD 11/03/2021 Last Documented On 2 10:40AM ; [facility] Z68.24 - Body mass index [BM I] 24.0-24.9, adult Medical Established Patient with Don Pino MD 11/03/2021 Last Documented On 2 10:40AM ; [facility] Cough Medical Established Patient with Karlajulius Floresen UPPER INSPECTOR 07/28/2021 Last Documented On 2 2:01PM ; [facility] Intervention and counseling on cessation of tobacco use, 3-10 minutes Discussed medication and nicotine replacement for tobacco cessation Medical Established Patient with Karla Amber UPPER INSPECTOR 07/28/2021 Last Documented On 2 2:01PM ; [facility] Nicotine dependence Medical Established Patient with Karla Amber UPPER INSPECTOR 07/28/2021 Last Documented On 2 2:01PM ; [facility] Z68.24 - Body mass index [BM I] 24.0-24.9, adult Medical Established Patient with Karla Amber UPPER INSPECTOR 07/28/2021 Last Documented On 2 2:01PM ; [facility] Assess Colon screening Medical Established Patie nt with Karla Amber UPPER INSPECTOR 05/08/2021 Last Documented On 1 10:59AM ; [facility] Diabetes Risk Test Score was four score 05/08/2021 Medical Established Patient with Karla Amber UPPER INSPECTOR 05/08/2021 Last Documented On 1 10:59AM ; [facility] Routine adult history and ph ysical (18-64 yrs) without abnormal findings Medical Established Patient with Karla Amber UPPER INSPECTOR 05/08/2021 Last Documented On 1 10:59AM ; [facility] Z68.24 - Body mass index [BM I] 24.0-24.9, adult Medical Established Patient with Karla Amber UPPER INSPECTOR 05/08/2021 Last Documented On 1 10:59AM ; [facility] Z68.24 - Body mass index [BM I] 24.0-24.9, adult Medical Established Patient with Karla Amber UPPER INSPECTOR 06/17/2020 Last Documented On 1 10:30AM ; [facility] Overweight Medical Established Patient with Karla Amber UPPER INSPECTOR 06/06/2020 Last Documented On 1 2:06PM ; [facility] Z68.25 - Body mass index [BM I] 25.0-25.9, adult Medical Established Patient with Karla Floresen UPPER INSPECTOR 06/06/2020 Last Documented On 1 2:06PM ; [facility] Antiasthmatics [facility] Asthma Clinic-New with Karla Amber UPPER INSPECTOR 05/06/2020 Last Documented On 0 7:27PM ; [facility] Assessment of tobacco use [facility] Asthma Clinic-New with Karla Amber UPPER INSPECTOR 05/06/2020 Last Documented On 0 7:27PM ; [facility] Body mass index [facility] Asthma Clinic-New with Karlajulius Floresen UPPER INSPECTOR 05/06/2020 Last Documented On 0 7:27PM ; [facility] Chronic obstructive pulmonary disease S [facility] Clinic-New with Karla Amber UPPER INSPECTOR 05/06/2020 Last Documented On 0 7:27PM ; [facility] Overweight [facility] Asthma Clinic-New with Karlajulius Floresen UPPER INSPECTOR 05/06/2020 Last Documented On 0 7:27PM ; [facility] Z11.4 - Encounter for screen ing for human immunodeficiency virus [HIV] [facility] Asthma Clinic-New with Karla Clark UPPER INSPECTOR 05/06/2020 Last Documented On 0 7:27PM ; [facility] Diabetes Risk Test Score was three score 03/31/2020 Medical Established Patient with Karla Floresen UPPER INSPECTOR 03/31/2020 Last Documented On 0 3:22PM ; [facility] Overweight Medical Established Patient with Karla Amber UPPER INSPECTOR 03/31/2020 Last Documented On 0 3:22PM ; [facility] Z68.25 - Body mass index [BM I] 25.0-25.9, adult Medical Established Patient with Karla Floresen UPPER INSPECTOR 03/31/2020 Last Documented On 0 3:22PM ; [facility] Encounter for Immunization Nurse Visit with Gary Clark UPPER INSPECTOR 03/14/2020 Last Documented On 0 5:11PM ; [facility] Body mass index Medical Established Patient with Karla Floresen UPPER INSPECTOR 02/26/2020 Last Documented On 0 1:18PM ; [facility] Overweight Medical Established Patient with Karla Amber UPPER INSPECTOR 02/26/2020 Last Documented On 0 1:18PM ; [facility] Overweight Medical Established Patient with Karlajulius Floresen UPPER INSPECTOR 07/23/2019 Last Documented On 0 2:33PM ; [facility] Z68.27 - Body mass index (BM I) 27.0-27.9, adult Medical Established Patient with Karla Floresen UPPER INSPECTOR 07/23/2019 Last Documented On 0 2:33PM ; [facility] Occasional asthma CPS- Asthma Clinic- F/U with A french Clark UPPER INSPECTOR 06/05/2019 Last Documented On 0 7:04PM ; [facility] Overweight CPS- Asthma Clinic- F/U with Aim julius Clark UPPER INSPECTOR 06/05/2019 Last Documented On 0 7:04PM ; [facility] Z68.27 - Body mass index (BM I) 27.0-27.9 adult CPS- Asthma Clinic- F/U with Karla Floresen UPPER INSPECTOR 06/05/2019 Last Documented On 0 7:04PM ; [facility] Occasional asthma CPS Med Review with Karla dinh UPPER INSPECTOR 04/23/2019 Last Documented On 9 4:01PM ; [facility] Overweight CPS Med Review with Karla Floresen UPPER INSPECTOR 04/23/2019 Last Documented On 9 4:01PM ; [facility] Z68.27 - Body mass index (BM I) 27.0-27.9 adult CPS Med Review with Karlajulius Floresen UPPER INSPECTOR 04/23/2019 Last Documented On 9 4:01PM ; [facility] Acute pharyngitis Medical Established Patient wi th Brandy Warren UPPER INSPECTOR 04/15/2019 Last Documented On 9 12:31PM ; [facility] Asthmatic bronchitis with ac cahto exacerbation Medical Established Patient with Brandy Warren UPPER INSPECTOR 04/15/2019 Last Documented On 9 12:31PM ; [facility] Fagerstrom Score was two Medical Established Pat ient with Brandy Warren UPPER INSPECTOR 04/15/2019 Last Documented On 9 12:31PM ; [facility] PHQ-9: total score was three 04/15/2019 Medical Established Patient with Brandy Warren UPPER INSPECTOR 04/15/2019 Last Documented On 9 12:31PM ; [facility] Body mass index Medical Established Patient with Karla Amber UPPER INSPECTOR 03/05/2019 Last Documented On 9 10:27AM ; [facility] Diabetes Risk Test Score was three score Medical Established Patient with Karla Amber UPPER INSPECTOR 03/05/2019 Last Documented On 9 10:27AM ; [facility] Overweight Medical Established Patient with Karla Amber UPPER INSPECTOR 03/05/2019 Last Documented On 9 10:27AM ; [facility] Z68.28 - Body mass index (BM I) 28.0-28.9, adult Medical Established Patient with Karla Amber UPPER INSPECTOR 12/22/2018 Last Documented On 9 10:32AM ; [facility] Assess routine adult history and physical (18 - 64 yrs) Medical Established Patient with Karla Amber UPPER INSPECTOR 11/06/2018 Last Documented On 9 2:26PM ; [facility] Overweight Medical Established Patient with Karla Amber UPPER INSPECTOR 11/06/2018 Last Documented On 9 2:26PM ; [facility] Z68.28 - Body mass index (BM I) 28.0-28.9, adult Medical Established Patient with Karla Amber UPPER INSPECTOR 11/06/2018 Last Documented On 9 2:26PM ; [facility] Assess dysphagia Medical Established Patient wit h Karla Amber UPPER INSPECTOR 09/11/2018 Last Documented On 9 10:53AM ; [facility] Assess routine adult history and physical (18 - 64 yrs) Medical Established Patient with Karla Amber UPPER INSPECTOR 09/11/2018 Last Documented On 9 10:53AM ; [facility] Assess primary insomnia with sleep apnea Medical Established Patient with Karla Amber UPPER INSPECTOR 09/04/2018 Last Documented On 9 2:23PM ; [facility] Assess routine adult history and physical (18 - 64 yrs) Medical Established Patient with Karla Clark UPPER INSPECTOR 09/04/2018 Last Documented On 9 2:23PM ; [facility] Overweight Medical Established Patient with Karla Clark UPPER INSPECTOR 09/04/2018 Last Documented On 9 2:23PM ; [facility] Z68.29 - Body mass index (BM I) 29.0-29.9, adult Medical Established Patient with Karla Clark UPPER INSPECTOR 09/04/2018 Last Documented On 9 2:23PM ; [facility] Assess vaginal candidiasis Medical Estab lished Patient with Karla Clark UPPER INSPECTOR 07/31/2018 Last Documented On 9 2:12PM ; [facility] Work Phone: Evaluation note* Diagnosis Onset Date Resolution Status Abdominal pain acute Flank pain acute Hypertension acute Prolonged Q-T interval on ECG acute Schizoaffective disorder acu te Abdominal pain acute MYESHA (acute kidney injury) ac cahto Flank pain acute Nausea & vomiting [facility] Work Phone: Evaluation note* Diagnosis Neoplasm of unspecified behavior of bone, soft tissue, and skin- Primary documented in this encounter [facility] Healthcare[facility]* Diagnosis Onset Date Resolution Status Acute psychosis acute Chronic schizophrenia acute [facility] Work Phone: Evaluation note* Diagnosis Onset Date Resolution Status Acute psychosis acute Chronic schizophrenia acute Schizoaffective disorder acu [facility] Work Phone: Evaluation note* Diagnosis Nontoxic multinodular goiter- Primary Thyroid nodule Nontoxic uninodular goiter [facility]: Assessments for all patient encounters Findings Encounter Date [R26.89 - Other abnormalitie s of gait and mobility] staggering gait Chart Update with Karla Clark CNP 11/15/2023 Last Documented On 12:07PM ; [facility] [F17.210 - Nicotine dependen ce, cigarettes, uncomplicated] continuous dependence on cigarette smoking Medical Established Patient with Karla Clark [facility] 10/04/2023 Last Documented On 4 6:30PM ; [facility] [Z12.11 - Encounter for scre ening for malignant neoplasm of colon] Colon screening Medical Established Patient with Karla Calrk UPPER INSPECTOR 10/04/2023 Last Documented On 4 6:30PM ; [facility] [Z68.25 - Body mass index [B ME] 25.0-25.9, adult] assessment of body mass index Medical Established Patient with Karla Clark UPPER INSPECTOR 10/04/2023 Last Documented On 4 6:30PM ; [facility] Diabetes Risk Test Score was five score 10/04/2023 Medical Established Patient with Karla Clark [facility] 10/04/2023 Last Documented On 4 6:30PM ; [facility] Encounter for Immunization Medical Estab lished Patient with Karla Clark [facility] 10/04/2023 Last Documented On 4 6:30PM ; [facility] [D48.5 - Neoplasm of uncerta in behavior of skin] skin neoplasm of uncertain behavior Medical Established Patient with Karla Clark [facility] 05/22/2023 Last Documented On 3 1:30PM ; [facility] [Z68.24 - Body mass index [B ME] 24.0-24.9, adult] assessment of body mass index Medical Established Patient with Karla Clark [facility] 05/22/2023 Last Documented On 3 1:30PM ; [facility] Assessment of tobacco use Medical Establ ished Patient with Karla Clark [facility] 05/22/2023 Last Documented On 3 1:30PM ; [facility] [R30.0 - Dysuria] Dysuria Chart Update with Gary Clark [facility] 03/21/2023 Last Documented On 3 11:27AM ; [facility] [Z12.39 - Encounter for othe r screening for malignant neoplasm of breast] visit for: screening for malignant breast neoplasm Medical Established Patient with Aaron Whitaker [facility] 02/28/2023 Last Documented On 3 9:51AM ; [facility] [Z68.24 - Body mass index [B ME] 24.0-24.9, adult] assessment of body mass index Medical Established Patient with Aaron Whitaker UPPER INSPECTOR 02/28/2023 Last Documented On 3 9:51AM ; [facility] Assessment of tobacco use Medical Establ ished Patient with Aaron Whitaker UPPER INSPECTOR 02/28/2023 Last Documented On 3 9:51AM ; [facility] Chronic obstructive pulmonary disease Me dical Established Patient with Aaron Whitaker UPPER INSPECTOR 02/28/2023 Last Documented On 3 9:51AM ; [facility] [J20.9 - Acute bronchitis, unspecified] acute bronchitis Medical Established Patient with Karla Clark UPPER INSPECTOR 11/19/2022 Last Documented On 3 10:15AM ; [facility] [M79.621 - Pain in right upp er arm] pain in upper arm Medical Established Patient with Karla Clark UPPER INSPECTOR 11/19/2022 Last Documented On 3 10:15AM ; [facility] [Z68.23 - Body mass index [B ME] 23.0-23.9, adult] assessment of body mass index Medical Established Patient with Karla Clark UPPER INSPECTOR 11/19/2022 Last Documented On 3 10:15AM ; [facility] [M79.601 - Pain in right arm ] pain in right arm Medical Established Patient with Karla Clark UPPER INSPECTOR 09/18/2022 Last Documented On 3 2:33PM ; [facility] [Z68.24 - Body mass index [B ME] 24.0-24.9, adult] assessment of body mass index Medical Established Patient with Karla Clark UPPER INSPECTOR 09/18/2022 Last Documented On 3 2:33PM ; [facility] Assessment of tobacco use Medical Establ ished Patient with Karla Clark UPPER INSPECTOR 09/18/2022 Last Documented On 3 2:33PM ; [facility] [M25.569 - Pain in unspecifi ed knee] arthralgia of knee / patella / tibia / fibula Medical Established Patient with Karla Clark UPPER INSPECTOR 08/27/2022 Last Documented On 3 9:20AM ; [facility] [Z68.24 - Body mass index [B ME] 24.0-24.9, adult] assessment of body mass index Medical Established Patient with Karla Clark UPPER INSPECTOR 08/27/2022 Last Documented On 3 9:20AM ; [facility] Intervention and counseling on cessation of tobacco use, 3-10 minutes Discussed medication and nicotine replacement for tobacco cessation Medical Established Patient with Karla Clark UPPER INSPECTOR 08/27/2022 Last Documented On 3 9:20AM ; [facility] Nicotine dependence Medical Established Patient with Karla Clark UPPER INSPECTOR 08/27/2022 Last Documented On 3 9:20AM ; [facility] Visit for routine adult H&P without abnormal findings Medical Established Patient with Karla Clark UPPER INSPECTOR 08/27/2022 Last Documented On 3 9:20AM ; [facility] [H92.02 - Otalgia, left ear] earache Med ical Established Patient with Karla Clark UPPER INSPECTOR 06/18/2022 Last Documented On 3 12:11PM ; [facility] [M79.604 - Pain in right leg ] pain in right leg Medical Established Patient with Karla Clark UPPER INSPECTOR 06/18/2022 Last Documented On 3 12:11PM ; [facility] [Z68.24 - Body mass index [B ME] 24.0-24.9, adult] assessment of body mass index Medical Established Patient with Karla Clark UPPER INSPECTOR 06/18/2022 Last Documented On 3 12:11PM ; [facility] Assessment of tobacco use Medical Establ ished Patient with Karla Clark UPPER INSPECTOR 06/18/2022 Last Documented On 3 12:11PM ; [facility] Diabetes Risk Test Score was four score 06/18/2022 Medical Established Patient with Karla Clark UPPER INSPECTOR 06/18/2022 Last Documented On 3 12:11PM ; [facility] Schizoaffective disorder Established Patient with Yin Feliz [facility] 03/20/2022 Last Documented On 2 12:13AM ; [facility] No cough Medical Established Patient with Karla Clark UPPER INSPECTOR 12/20/2021 Last Documented On 2 3:12PM ; [facility] Visit for: screening for hum an immunodeficiency virus Medical Established Patient with Karlajulius Floresen UPPER INSPECTOR 12/20/2021 Last Documented On 2 3:12PM ; [facility] Z68.24 - Body mass index [BM I] 24.0-24.9, adult Medical Established Patient with Karla Clark UPPER INSPECTOR 12/20/2021 Last Documented On 2 3:12PM ; [facility] Bipolar disorder NOS BH Established Patient with Yin Feliz [facility] 11/03/2021 Last Documented On 2 7:00PM ; [facility] Bipolar schizoaffective disorder BH Esta blished Patient with Yin Feliz [facility] 11/03/2021 Last Documented On 2 7:00PM ; [facility] PLAN Medical Established Patient with Don Pino MD 11/03/2021 Last Documented On 2 10:40AM ; [facility] Abnormal electrocardiogram Medical Estab lished Patient with Don Pino MD 11/03/2021 Last Documented On 2 10:40AM ; [facility] Z68.24 - Body mass index [BM I] 24.0-24.9, adult Medical Established Patient with Don Pino MD 11/03/2021 Last Documented On 2 10:40AM ; [facility] Cough Medical Established Patient with Karla Clark UPPER INSPECTOR 07/28/2021 Last Documented On 2 2:01PM ; [facility] Intervention and counseling on cessation of tobacco use, 3-10 minutes Discussed medication and nicotine replacement for tobacco cessation Medical Established Patient with Karlajulius Floresen UPPER INSPECTOR 07/28/2021 Last Documented On 2 2:01PM ; [facility] Nicotine dependence Medical Established Patient with Karla Amber UPPER INSPECTOR 07/28/2021 Last Documented On 2 2:01PM ; [facility] Z68.24 - Body mass index [BM I] 24.0-24.9, adult Medical Established Patient with Karla Amber UPPER INSPECTOR 07/28/2021 Last Documented On 2 2:01PM ; [facility] Assess Colon screening Medical Established Patie nt with Karla Amber UPPER INSPECTOR 05/08/2021 Last Documented On 1 10:59AM ; [facility] Diabetes Risk Test Score was four score 05/08/2021 Medical Established Patient with Karla Amber UPPER INSPECTOR 05/08/2021 Last Documented On 1 10:59AM ; [facility] Routine adult history and ph ysical (18-64 yrs) without abnormal findings Medical Established Patient with Karla Amber UPPER INSPECTOR 05/08/2021 Last Documented On 1 10:59AM ; [facility] Z68.24 - Body mass index [BM I] 24.0-24.9, adult Medical Established Patient with Karla Amber UPPER INSPECTOR 05/08/2021 Last Documented On 1 10:59AM ; [facility] Z68.24 - Body mass index [BM I] 24.0-24.9, adult Medical Established Patient with Karla Amber UPPER INSPECTOR 06/17/2020 Last Documented On 1 10:30AM ; [facility] Overweight Medical Established Patient with Karla Amber UPPER INSPECTOR 06/06/2020 Last Documented On 1 2:06PM ; [facility] Z68.25 - Body mass index [BM I] 25.0-25.9, adult Medical Established Patient with Karla Amber UPPER INSPECTOR 06/06/2020 Last Documented On 1 2:06PM ; [facility] Antiasthmatics CPS Asthma Clinic-New with Karla Amber UPPER INSPECTOR 05/06/2020 Last Documented On 0 7:27PM ; [facility] Assessment of tobacco use [facility] Asthma Clinic-New with Karla Amber UPPER INSPECTOR 05/06/2020 Last Documented On 0 7:27PM ; [facility] Body mass index [facility] Asthma Clinic-New with Karla Amber UPPER INSPECTOR 05/06/2020 Last Documented On 0 7:27PM ; [facility] Chronic obstructive pulmonary disease CP S [facility]hma Clinic-New with Karla Floresen UPPER INSPECTOR 05/06/2020 Last Documented On 0 7:27PM ; [facility] Overweight CPS Asthma Clinic-New with Karlajulius Floresen UPPER INSPECTOR 05/06/2020 Last Documented On 0 7:27PM ; [facility] Z11.4 - Encounter for screen ing for human immunodeficiency virus [HIV] CPS Asthma Clinic-New with Karla Floresen UPPER INSPECTOR 05/06/2020 Last Documented On 0 7:27PM ; [facility] Diabetes Risk Test Score was three score 03/31/2020 Medical Established Patient with Karla Amber UPPER INSPECTOR 03/31/2020 Last Documented On 0 3:22PM ; [facility] Overweight Medical Established Patient with Karlajulius Floresen UPPER INSPECTOR 03/31/2020 Last Documented On 0 3:22PM ; [facility] Z68.25 - Body mass index [BM I] 25.0-25.9, adult Medical Established Patient with Karla Floresen UPPER INSPECTOR 03/31/2020 Last Documented On 0 3:22PM ; [facility] Encounter for Immunization Nurse Visit with Gary Clark UPPER INSPECTOR 03/14/2020 Last Documented On 0 5:11PM ; [facility] Body mass index Medical Established Patient with Karla Floresen UPPER INSPECTOR 02/26/2020 Last Documented On 0 1:18PM ; [facility] Overweight Medical Established Patient with Karla Amber UPPER INSPECTOR 02/26/2020 Last Documented On 0 1:18PM ; [facility] Overweight Medical Established Patient with Karlajulius Floresen UPPER INSPECTOR 07/23/2019 Last Documented On 0 2:33PM ; [facility] Z68.27 - Body mass index (BM I) 27.0-27.9, adult Medical Established Patient with Karaljulius Floresen UPPER INSPECTOR 07/23/2019 Last Documented On 0 2:33PM ; [facility] Occasional asthma CPS- Asthma Clinic- F/U with A french Clark UPPER INSPECTOR 06/05/2019 Last Documented On 0 7:04PM ; [facility] Overweight CPS- Asthma Clinic- F/U with Aim julius Clark UPPER INSPECTOR 06/05/2019 Last Documented On 0 7:04PM ; [facility] Z68.27 - Body mass index (BM I) 27.0-27.9 adult CPS- Asthma Clinic- F/U with Karla Clark UPPER INSPECTOR 06/05/2019 Last Documented On 0 7:04PM ; [facility] Occasional asthma CPS Med Review with Karlajulius dinh UPPER INSPECTOR 04/23/2019 Last Documented On 9 4:01PM ; [facility] Overweight CPS Med Review with Karlajulius Clark UPPER INSPECTOR 04/23/2019 Last Documented On 9 4:01PM ; [facility] Z68.27 - Body mass index (BM I) 27.0-27.9 adult CPS Med Review with Karla Clark UPPER INSPECTOR 04/23/2019 Last Documented On 9 4:01PM ; [facility] Acute pharyngitis Medical Established Patient wi th Brandy Serranoer [facility] 04/15/2019 Last Documented On 9 12:31PM ; [facility] Asthmatic bronchitis with ac cahto exacerbation Medical Established Patient with Brandy Warren UPPER INSPECTOR 04/15/2019 Last Documented On 9 12:31PM ; [facility] Fagerstrom Score was two Medical Established Pat ient with Brandy Warren UPPER INSPECTOR 04/15/2019 Last Documented On 9 12:31PM ; [facility] PHQ-9: total score was three 04/15/2019 Medical Established Patient with Brandy Warren UPPER INSPECTOR 04/15/2019 Last Documented On 9 12:31PM ; [facility] Body mass index Medical Established Patient with Karla Clark UPPER INSPECTOR 03/05/2019 Last Documented On 9 10:27AM ; [facility] Diabetes Risk Test Score was three score Medical Established Patient with Karlajulius Floresen UPPER INSPECTOR 03/05/2019 Last Documented On 9 10:27AM ; [facility] Overweight Medical Established Patient with Karla Amber UPPER INSPECTOR 03/05/2019 Last Documented On 9 10:27AM ; [facility] Z68.28 - Body mass index (BM I) 28.0-28.9, adult Medical Established Patient with Karla Amber UPPER INSPECTOR 12/22/2018 Last Documented On 9 10:32AM ; [facility] Assess routine adult history and physical (18 - 64 yrs) Medical Established Patient with Karla Amber UPPER INSPECTOR 11/06/2018 Last Documented On 9 2:26PM ; [facility] Overweight Medical Established Patient with Karla Amber UPPER INSPECTOR 11/06/2018 Last Documented On 9 2:26PM ; [facility] Z68.28 - Body mass index (BM I) 28.0-28.9, adult Medical Established Patient with Karla Amber UPPER INSPECTOR 11/06/2018 Last Documented On 9 2:26PM ; [facility] Assess dysphagia Medical Established Patient wit h Karla Amber UPPER INSPECTOR 09/11/2018 Last Documented On 9 10:53AM ; [facility] Assess routine adult history and physical (18 - 64 yrs) Medical Established Patient with Karla Amber UPPER INSPECTOR 09/11/2018 Last Documented On 9 10:53AM ; [facility] Assess primary insomnia with sleep apnea Medical Established Patient with Karla Amber UPPER INSPECTOR 09/04/2018 Last Documented On 9 2:23PM ; [facility] Assess routine adult history and physical (18 - 64 yrs) Medical Established Patient with Karla Amber UPPER INSPECTOR 09/04/2018 Last Documented On 9 2:23PM ; [facility] Overweight Medical Established Patient with Karla Amber UPPER INSPECTOR 09/04/2018 Last Documented On 9 2:23PM ; [facility] Z68.29 - Body mass index (BM I) 29.0-29.9, adult Medical Established Patient with Karla Amber UPPER INSPECTOR 09/04/2018 Last Documented On 9 2:23PM ; [facility] Assess vaginal candidiasis Medical Estab lished Patient with Karla Amber UPPER INSPECTOR 07/31/2018 Last Documented On 9 2:12PM ; [facility] Work Phone: Evaluation note* Diagnosis Onset Date Resolution Status MYESHA (acute kidney injury) ac cahto [facility]: [facility]* Diagnosis Onset Date Resolution Status Acute psychosis acute MYESHA (acute kidney injury) ac cahto Chronic schizophrenia acute [facility] Work Phone: Evaluation note* Diagnosis Stroke-like symptom- Primary Other symptoms involving nervous and musculoskeletal systems Migraine variant Variants of migraine, not elsewhere classified, without mention of intractable migraine without mention of status migrainosus documented in this encounter [facility]* Diagnosis Transportation unavailable- Primary documented in this encounter [facility]* Diagnosis Gait instability- Primary Abnormality of gait Tardive dyskinesia Subacute dyskinesia due to drugs Psychiatric disturbance Unspecified nonpsychotic mental disorder [place] use [facility]* Diagnosis Lumbar radiculopathy- Primary Thoracic or lumbosacral neuritis or radiculitis, unspecified documented [facility] encounter [facility] note Author Joe rodriguez [facility] August 16, 2023 12:20pm Note Date/Time August 16, 2023 11: 24am [facility] [address] [place] [address] Psychiatry H&P Signed Patient: Gail Almeida MR#: [id number] : 1955 Acct:[id number] Age/Sex: 67 / F Adm Date: 4 Loc: Room: [address] [place] [address] Type: ADM IN Attending Dr: Joe Davis [...] 2 times total 1 time here in [facility] and another time at a different hospital Past suicide attempts: Denies previous suicidal attempts Previous medications: Reports Seroquel, [place], Zyprexa, Cogentin Alcohol and Drug Use: Denies alcohol use. Denies street drugs. 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 Review of symptoms: Constitutional: Denies chills [...] SI, HI, hallucination Insight: Poor Judgment: Poor [facility] Medical History Localized swelling, mass and lump, [...] oral powder 17 g PO DAILY PRN Jtirhfzivnqh50/10/23 [History Confirmed 08/15/23] quetiapine 400 mg tablet,extended [...] 08/15/23] dextromethorphan-guaifenesin 30 mg-600 mg tablet extended mfyctid45 hr (Mucus DM) 1 tab PO Q12HR [...] Appearance Clear Urine pH 7.0 Ur Specific [place] 1.005 Urine Protein Negative Urine Glucose (UA) Normal Urine Ketones Negative Urine Occult Blood Negative Urine Nitrite Negative Ur Leukocyte Esterase 3+ H Urine RBC None seen Urine WBC 3-4 [place] 0.50 L Assessment/Plan (1) Schizoaffective disorder: Plan [...] PO BID and 400 mg PO HS [place]kauna 300 mg PO BID. Obtain lithium level. [...] signed by Joe Davis MD> 08/16/23 1220 [facility] Work Phone: History general Narrative - Reported* Type Description Date Medical History asthma Medical History depression Medical History parkinson disease Medical History bipolar Surgical History tubal ligation Surgical History hysterectomy Hospitalization History [facility] Other History general Narrative - Reported* Type Description Date Medical History asthma Medical History depression Medical History parkinson disease Medical History bipolar Medical History schizophrenia Medical History migraine headache Medical History COPD Surgical History tubal ligation Surgical History hysterectomy Hospitalization History [facility] Other Hisgpbm general Narrative - Reported Includes: Medical History in patient's chart Description Last Updated 1 previous live (s) 02/28/2023 Last Documented On 3 9:51AM ; [facility] Previously 1 time(s) 02/28/2023 Last Documented On 3 9:51AM ; [facility] Previous hospitalizations 09/18/2022 Last Documented On 3 2:33PM ; [facility] Currently nursing 11/03/2021 Last Documented On 2 7:00PM ; [facility] status unknown for sexually tra nsmitted infection 11/03/2021 Last Documented On 2 7:00PM ; [facility] 11/03/2021 Last Documented On 2 7:00PM ; [facility] Not planning to have a baby in the next 12 months 11/03/2021 Last Documented On 2 7:00PM ; [facility] Heart Attack 03/2021 [facility] 1 07/09/2020 Last Documented On 1 10:59AM ; [facility] A recent immunization for flu 05/06/2020 Last Documented On 0 7:27PM ; [facility] Patient gave verbal consent for teleheal th 08/31/2019 Last Documented On 0 9:21AM ; [facility] History of abnormal electrocardiogram Last Documented On 9 2:12PM ; [facility] History of asthma 07/31/2018 Last Documented On 9 2:12PM ; [facility] History of cardiovascular disorder 07/31 Last Documented On 9 2:12PM ; [facility] History of respiratory disorder 07/31/19 19 Last Documented On 9 2:12PM ; [facility] History of bipolar disorder NOS 07/31/19 19 Last Documented On 9 2:12PM ; [facility] History of depression 07/31/2018 Last Documented On 9 2:12PM ; [facility] History of psychiatric disorders 019 Last Documented On 9 2:12PM ; [facility] Work Phone: History of Present illness Narrative History of Present Illness not supported for this document type No [facility] of [facility] Work Phone: Hospital Discharge instructions No data available for this section [facility] instructions[facility]ulatory Orders* PT/OT/SP OutPatient [...] not already scheduled one. Dr. Emory Adame [facility] [address] [place], [place] [id number] [phone] [facility] Work Phone: Hospital Discharge instructions Additional Instructions 1. Supplanted pillows 2. Small amount of Vaseline to sutures twice daily 3. Okay to shower in the morning, keep wound dry and clean 4. Take antibiotics as prescribed 5. Tylenol or Motrin for discomfort 6. See Dr. James in [facility] Work Phone: Instructions Instructions not supported for this document type No Instructions [facility] Work Phone: patient problem outcome Narrative Includes: Evaluations & Outcomes for active Goals No Outcomes [facility] Work Phone: progress note* Progress note Date Encounter Last Documented by 08/27/2022 Medical Established Patient Last documented on 08/27/2022; 8:56 AM, Karla Clark CNP; [facility] Active Problems & Conditions - J45.909 - [...] tablet by mouth twice a day DR GALICIA, 0 days, 0 refills - Benztropine Mesylate 0.5 MG Oral Tablet Take 1 tablet by mouth twice a day DR GALICIA, 0 days, 0 refills - Calcium 600+D [...] EVERY DAY, 30 days, 11 refills - Kaukauna Carbonate 300MG Oral Tablet 300 MG take [...] Bipolar disorder NOS Depression Heart Attack 03/2021 [facility]. Surgical: - Hysterectomy Social History Environmental Exposure: [...] BP-Sitting L115/73 mmHg BP Cuff SizeRegular Pulse Rate-Hocdjwc81 bpm Temp-Inxygfom49 F Pigkva98 in Ucfhvk172 lbs 9.6 oz Body Mass Index24.6 kg/m2 Body Surface Area1.7 m2 Oxygen Ivxngsqtfh00 % General Appearance: - Appears distressed. - [...] and Counseling satisfied 08/27/2022. [facility] note Author Joe rodriguez [facility] August 17, 2023 6:38am Note Date/Time August 17, 2023 6:3 9am [facility] [address] [place] [address] Psychiatry Progress Note Signed Patient: Gail Almeida MR#: [id number] : 1955 Acct:[id number] Age/Sex: 67 / F Adm Date: 4 Loc: Room: [address] [place] [address] Type : ADM IN Attending Dr: Joe [...] 28.6 L TSH 3rd Generation 9.75 H [place]ka[place] 0.50 L Assessment/Plan Assessment/Plan (1) Schizoaffective disorder: Plan Patient denied any hallucinations this am. No SI/HI. Cogentin 0.5 mg PO BID Clonidine 0.1 mg PO Daily Zyprexa 5 mg PO Daily and 12.5 mg PO QHS Seroquel 12.5 mg PO BID and 400 mg PO HS [place] 300 mg PO BID. Obtain lithium level. [...] signed by Joe Davis MD> 08/17/23 0638 [facility] Work Phone: Progress note Author Joe rodriguez [facility] August 18, 2023 9:29am Note Date/Time August 18, 2023 9:2 9am [facility] [address] [place] [address] Psychiatry Progress Note Signed Patient: Gail Almeida MR#: [id number] : 1955 Acct:[id number] Age/Sex: 67 / F Adm Date: 4 Loc: 1S Room: 4L4267-8 Type : ADM IN Attending Dr: Joe [...] PO BID and 400 mg PO HS [place] 300 mg PO BID. Obtain lithium level. [...] provided. Documented By: Joe Davis MD 4 927 Signed By: <Electronically signed by Joe Davis MD> 08/18/23 09 [facility] Work Phone: Progress note Author Reynaldo Kraft [facility] August 19, 2023 12:04pm Note Date/Time August 19, 2023 12: 04pm [facility] [address] [place] [address] Psychiatry Progress Note Signed Patient: Gail Almeida MR#: [id number] : 1955 Acct:[id number] Age/Sex: 67 / F Adm Date: 4 Loc: Room: [address] [place] [address] Type : ADM IN Attending Dr: Joe [...] PO BID and 400 mg PO HS [place] 300 mg PO BID. Cipro 500mg PO BID Continue to monitor mental status Encourage group participation and medication compliance Risk benefits alternatives explained Documented By: Reynaldo Kraft MD 08/19/23 1203 Signed By: <Electronically signed by Reynaldo Kraft MD> 08/19/23 1204 [facility] Work Phone: Reason for referral (narrative)No Reason for Referral [facility] Work Phone: Reason for referral (narrative)* Consultation (Routine) - Pending Review Specialty Diagnoses / Procedures Referred By Oni gardner Referred To Contact Physical Therapy Diagnoses Gait instability Procedures [place] OFFICE/OUTPATIENT NEW HIGH MDM 60 MINUTES Lucy Gilbert DO [address] [place] [address] Johan Alvarez, PT [address] [place] [address] Referral ID Status Reason Start Date Expiration Date Visits Requested Visits Authorized [id number] Pending Review Specialty Services Required 02/18/2024 08/16/2024 1 1 [facility] N[facility]ative* Consultation (Routine) - Closed Specialty Diagnoses / Procedures Referred By Contac t Referred To Contact Neurology Diagnoses Unspecified abnormalities of gait and mobility Procedures [place] OFFICE/OUTPATIENT NEW LOW MDM 30 MINUTES Vida Culp MD [address] [place] [address] Héctor Vallecillo MD [address] [place] [address] Referral ID Status Reason Start Date Expiration Date Visits Re quested Visits Authorized [id number] Closed 01/29/2024 07/27/2024 1 1 [facility] Narrative - Reported Review of Systems not supported for this document type No Review of Systems [facility] Work Phone: History of Past Illness [...] adult Medical Established Patient with Karla Clark [facility] 12/22/2018 Assess routine adult history and physical (18 - 64 yrs) Medical Established Patient with Karla Clark [facility] 11/06/2018 Overweight Medical Established Patient with Karla Clark [facility] 11/06/2018 Z68.28 - Body mass index (BM I) 28.0-28.9, adult Medical Established Patient with Karla Clark [facility] 11/06/2018 Assess dysphagia Medical Established Patient with Karla Clark [facility] 09/11/2018 Assess routine adult history and physical (18 - 64 yrs) Medical Established Patient with Karla Clark [facility] 09/11/2018 Assess primary insomnia with sleep apnea Medical Established Patient with Karla Clark [facility] 09/04/2018 Assess routine adult history and physical (18 - 64 yrs) Medical Established Patient with Karla Clark [facility] 09/04/2018 Overweight Medical Established Patient with Karla Clark [facility] 09/04/2018 Z68.29 - Body mass index (BM I) 29.0-29.9, adult Medical Established Patient with Karla Clark [facility] 09/04/2018 Assess vaginal candidiasis Medical Estab lished Patient with Karla Clark [facility] 07/31/2018 Diagnosis Right foot pain Pain in limb Diagnosis Abnormal mammogram of left breast Findings Encounter Date Occasional asthma CPS Med Review with Karla Flores allegra [facility] 04/23/2019 Overweight CPS Med Review with Karla Floresen [facility] 04/23/2019 Z68.27 - Body mass index (BM I) 27.0-27.9 adult CPS Med Review with Karla Floresen [facility] 04/23/2019 Acute pharyngitis Medical Established Patient with Brandy Kelley [facility] 04/15/2019 Asthmatic bronchitis with ac cahto exacerbation Medical Established Patient with Brandy Warren [facility] 04/15/2019 Fagerstrom Score was two Medical Establi shed Patient with Brandy Kelley [facility] 04/15/2019 PHQ-9: total score was three 04/15/2019 Medical Established Patient with Brandy Kelley [facility] 04/15/2019 Body mass index Medical Established Patient with Karla Clark [facility] 03/05/2019 Diabetes Risk Test Score was three score Medical Established Patient with Karla Clark [facility] 03/05/2019 Overweight Medical Established Patient with Karla Clark [facility] 03/05/2019 Z68.28 - Body mass index (BM I) 28.0-28.9, adult Medical Established Patient with Karla Clark [facility] 12/22/2018 Assess routine adult history and physical (18 - 64 yrs) Medical Established Patient with Karlajulius Clark [facility] 11/06/2018 Overweight Medical Established Patient with Karlajulius Clark [facility] 11/06/2018 Z68.28 - Body mass index (BM I) 28.0-28.9, adult Medical Established Patient with Karla Clark [facility] 11/06/2018 Assess dysphagia Medical Established Patient with Karla Clark [facility] 09/11/2018 Assess routine adult history and physical (18 - 64 yrs) Medical Established Patient with Karlajulius Clark [facility] 09/11/2018 Assess primary insomnia with sleep apnea Medical Established Patient with Karlajulius Clark [facility] 09/04/2018 Assess routine adult history and physical (18 - 64 yrs) Medical Established Patient with Karla Clark [facility] 09/04/2018 Overweight Medical Established Patient with Karla Clark [facility] 09/04/2018 Z68.29 - Body mass index (BM I) 29.0-29.9, adult Medical Established Patient with Karla Clark [facility] 09/04/2018 Assess vaginal candidiasis Medical Estab lished Patient with Karla Clark [facility] 07/31/2018 Findings Encounter Date Occasional asthma CPS- [facility]hma Clinic- F/U with Karlajulius Clark [facility] 06/05/2019 Overweight CPS- [facility] Clinic- F/U with Karlajulius Clark [facility] 06/05/2019 Z68.27 - Body mass index (BM I) 27.0-27.9 adult CPS- [facility] Clinic- F/U with Karla Amber [facility] 06/05/2019 Occasional asthma CPS Med Review with Karlajulius dinh [facility] 04/23/2019 Overweight CPS Med Review with Karlajulius Clark [facility] 04/23/2019 Z68.27 - Body mass index (BM I) 27.0-27.9 adult CPS Med Review with Karlajulius Clark [facility] 04/23/2019 Acute pharyngitis Medical Established Patient with Brandy Kelley [facility] 04/15/2019 Asthmatic bronchitis with ac cahto exacerbation Medical Established Patient with Brandy Kelley [facility] 04/15/2019 Fagerstrom Score was two Medical Establi shed Patient with Brandy Kelley [facility] 04/15/2019 PHQ-9: total score was three 04/15/2019 Medical Established Patient with Brandy Kelley [facility] 04/15/2019 Body mass index Medical Established Patient with Karla Clark [facility] 03/05/2019 Diabetes Risk Test Score was three score Medical Established Patient with Karlajulius Clark [facility] 03/05/2019 Overweight Medical Established Patient with Karla Amber [facility] 03/05/2019 Z68.28 - Body mass index (BM I) 28.0-28.9, adult Medical Established Patient with Karla Amber [facility] 12/22/2018 Assess routine adult history and physical (18 - 64 yrs) Medical Established Patient with Karla Amber [facility] 11/06/2018 Overweight Medical Established Patient with Karla Amber [facility] 11/06/2018 Z68.28 - Body mass index (BM I) 28.0-28.9, adult Medical Established Patient with Karla Amber [facility] 11/06/2018 Assess dysphagia Medical Established Patient with Karla Amber [facility] 09/11/2018 Assess routine adult history and physical (18 - 64 yrs) Medical Established Patient with Karla Amber [facility] 09/11/2018 Assess primary insomnia with sleep apnea Medical Established Patient with Karla Amber [facility] 09/04/2018 Assess routine adult history and physical (18 - 64 yrs) Medical Established Patient with Karla Amber [facility] 09/04/2018 Overweight Medical Established Patient with Karla Amber [facility] 09/04/2018 Z68.29 - Body mass index (BM I) 29.0-29.9, adult Medical Established Patient with Karla Amber [facility] 09/04/2018 Assess vaginal candidiasis Medical Estab lished Patient with Karla Amber [facility] 07/31/2018 Findings Encounter Date Overweight Medical Established Patient with Karlajulius Clark [facility] 07/23/2019 Z68.27 - Body mass index (BM I) 27.0-27.9, adult Medical Established Patient with Karla Amber [facility] 07/23/2019 Occasional asthma CPS- Asthma Clinic- F/U with Karla Amber [facility] 06/05/2019 Overweight CPS- Asthma Clinic- F/U with Karla Clark [facility] 06/05/2019 Z68.27 - Body mass index (BM I) 27.0-27.9 adult CPS- Asthma Clinic- F/U with Karla Amber [facility] 06/05/2019 Occasional asthma CPS Med Review with Karla dinh [facility] 04/23/2019 Overweight CPS Med Review with Karla Clark [facility] 04/23/2019 Z68.27 - Body mass index (BM I) 27.0-27.9 adult CPS Med Review with Karla Floresen [facility] 04/23/2019 [facility] ph[facility]itis [facility] Asthmatic bronchitis with ac cahto exacerbation Medical Established Patient with Brandy Serranoer [facility] 04/15/2019 Fagerstrom Score was two Medical Establi shed Patient with Brandy Serranoer [facility] 04/15/2019 PHQ-9: total score was three 04/15/2019 [facility] Body mass index Medical Established Patient with Karla Clark [facility] 03/05/2019 Diabetes Risk Test Score was three score Medical Established Patient with Karla Clark [facility] 03/05/2019 Overweight Medical Established Patient with Karla Clark [facility] 03/05/2019 Z68.28 - Body mass index (BM I) 28.0-28.9, adult Medical Established Patient with Karla Clark [facility] 12/22/2018 Assess routine adult history and physical (18 - 64 yrs) Medical Established Patient with Karla Clark [facility] 11/06/2018 Overweight Medical Established Patient with Karla Clark [facility] 11/06/2018 Z68.28 - Body mass index (BM I) 28.0-28.9, adult Medical Established Patient with Karla Clark [facility] 11/06/2018 Assess dysphagia Medical Established Patient with Karla Clark [facility] 09/11/2018 Assess routine adult history and physical (18 - 64 yrs) Medical Established Patient with Karla Clark [facility] 09/11/2018 Assess primary insomnia with sleep apnea Medical Established Patient with Karlajulius Clark [facility] 09/04/2018 Assess routine adult history and physical (18 - 64 yrs) Medical Established Patient with Karlajulius Clark [facility] 09/04/2018 Overweight Medical Established Patient with Karlajulius Clark [facility] 09/04/2018 Z68.29 - Body mass index (BM I) 29.0-29.9, adult Medical Established Patient with Karlajulius Clark [facility] 09/04/2018 Assess vaginal candidiasis Medical Estab lished Patient with Karlajulius Floresen [facility] 07/31/2018 Findings Encounter Date Body mass index Medical Established Patient with Karla Floresen [facility] 02/26/2020 Overweight Medical Established Patient with Karla Amber [facility] 02/26/2020 Overweight Medical Established Patient with Karlajulius Floresen [facility] 07/23/2019 Z68.27 - Body mass index (BM I) 27.0-27.9, adult Medical Established Patient with Karla Amber [facility] 07/23/2019 Occasional asthma CPS- Asthma Clinic- F/U with Karla Amber [facility] 06/05/2019 Overweight CPS- Asthma Clinic- F/U with Karla Amber [facility] 06/05/2019 Z68.27 - Body mass index (BM I) 27.0-27.9 adult CPS- Asthma Clinic- F/U with Karla Amber [facility] 06/05/2019 Occasional asthma CPS Med Review with Karla Sandra dinh [facility] 04/23/2019 Overweight CPS Med Review with Karla Amber [facility] 04/23/2019 Z68.27 - Body mass index (BM I) 27.0-27.9 adult CPS Med Review with Karla Amber [facility] 04/23/2019 Acute pharyngitis Medical Established Patient with Brandy Serranoer [facility] 04/15/2019 Asthmatic bronchitis with ac cahto exacerbation Medical Established Patient with Brandy Serranoer [facility] 04/15/2019 Fagerstrom Score was two Medical Establi shed Patient with Brandy Serranoer [facility] 04/15/2019 PHQ-9: total score was three 04/15/2019 Medical Established Patient with Brandy Serarnoer [facility] 04/15/2019 Body mass index Medical Established Patient with Karla Clark [facility] 03/05/2019 Diabetes Risk Test Score was three score Medical Established Patient with Karla Amber [facility] 03/05/2019 Overweight Medical Established Patient with Karla Amber [facility] 03/05/2019 Z68.28 - Body mass index (BM I) 28.0-28.9, adult Medical Established Patient with Karlajulius Floresen [facility] 12/22/2018 Assess routine adult history and physical (18 - 64 yrs) Medical Established Patient with Karla Amber [facility] 11/06/2018 Overweight Medical Established Patient with Karla Amber [facility] 11/06/2018 Z68.28 - Body mass index (BM I) 28.0-28.9, adult Medical Established Patient with Karla Clark [facility] 11/06/2018 Assess dysphagia Medical Established Patient with Karla Amber [facility] 09/11/2018 Assess routine adult history and physical (18 - 64 yrs) Medical Established Patient with Karla Clark [facility] 09/11/2018 Assess primary insomnia with sleep apnea Medical Established Patient with Karla Clark [facility] 09/04/2018 Assess routine adult history and physical (18 - 64 yrs) Medical Established Patient with Karla Amber [facility] 09/04/2018 Overweight Medical Established Patient with Karla Clark [facility] 09/04/2018 Z68.29 - Body mass index (BM I) 29.0-29.9, adult Medical Established Patient with Karla Amber [facility] 09/04/2018 Assess vaginal candidiasis Medical Estab lished Patient with Karla Floresen [facility] 07/31/2018 Findings Encounter Date Encounter for Immunization Nurse Visit with Gary Clark [facility] 03/14/2020 Body mass index Medical Established Patient with Karla Floresen [facility] 02/26/2020 Overweight Medical Established Patient with Karla Amber [facility] 02/26/2020 Overweight Medical Established Patient with Karla Amber [facility] 07/23/2019 Z68.27 - Body mass index (BM I) 27.0-27.9, adult Medical Established Patient with Karla Amber [facility] 07/23/2019 Occasional asthma CPS- Asthma Clinic- F/U with Karlajulius Clark [facility] 06/05/2019 Overweight CPS- Asthma Clinic- F/U with Karla Amber [facility] 06/05/2019 Z68.27 - Body mass index (BM I) 27.0-27.9 adult CPS- Asthma Clinic- F/U with Karlajulius Clark [facility] 06/05/2019 Occasional asthma CPS Med Review with Karla Sandra dinh [facility] 04/23/2019 Overweight CPS Med Review with Karla Amber [facility] 04/23/2019 Z68.27 - Body mass index (BM I) 27.0-27.9 adult CPS Med Review with Karlajulius Clark [facility] 04/23/2019 Acute pharyngitis Medical Established Patient with Brandy Kelley [facility] 04/15/2019 Asthmatic bronchitis with ac cahto exacerbation Medical Established Patient with Brandy Kelley UPPER INSPECTOR 04/15/2019 Fagerstrom Score was two Medical Establi shed Patient with Brandy Kelley UPPER INSPECTOR 04/15/2019 PHQ-9: total score was three 04/15/2019 Medical Established Patient with Brandy Kelley [facility] 04/15/2019 Body mass index Medical Established Patient with Karla Clark [facility] 03/05/2019 Diabetes Risk Test Score was three score Medical Established Patient with Karla Clark [facility] 03/05/2019 Overweight Medical Established Patient with Karla Clark [facility] 03/05/2019 Z68.28 - Body mass index (BM I) 28.0-28.9, adult Medical Established Patient with Karla Clark [facility] 12/22/2018 Assess routine adult history and physical (18 - 64 yrs) [facility] Z68.28 - Body mass index (BM I) 28.0-28.9, adult Medical Established Patient with Karla Clark [facility] 11/06/2018 Assess dysphagia Medical Established Patient with Karla Clark [facility] 09/11/2018 Assess routine adult history and physical (18 - 64 yrs) Medical Established Patient with Karla Clark [facility] 09/11/2018 Assess primary insomnia with sleep apnea Medical Established Patient with Karla Clark [facility] 09/04/2018 Assess routine adult history and physical (18 - 64 yrs) [facility] Overweight Medical Established Patient with Karla Clark [facility] 09/04/2018 Z68.29 - Body mass index (BM I) 29.0-29.9, adult Medical Established Patient with Karla Clark [facility] 09/04/2018 Assess vaginal candidiasis Medical Estab lished Patient with Karla Clark [facility] 07/31/2018 Diagnosis Abnormal mammogram Abnormal mammogram, unspecified Diagnosis Abnormal mammogram Abnormal mammogram, unspecified Findings Encounter Date Antiasthmatics CPS Asthma Clinic-Ne w with [facility] 05/06/2020 Assessment of tobacco use CPS Asthma Cli yash-New with [facility] 05/06/2020 Body mass index CPS Asthma Clinic-Ne w with Karla Amber CNP 05/06/2020 Chronic obstructive pulmonary disease CP S Asthma Clinic-New with [facility] 05/06/2020 Overweight CPS Asthma Clinic-Ne w with [facility] 05/06/2020 Z11.4 - Encounter for screen ing for human immunodeficiency virus [HIV] CPS Asthma Clinic-New with Karla Amber CNP 05/06/2020 Diabetes Risk Test Score was three score 03/31/2020 Medical Established Patient with Karla Clark [facility] 03/31/2020 Overweight Medical Established Patient with Karla Clark [facility] 03/31/2020 Z68.25 - Body mass index [BM I] 25.0-25.9, adult Medical Established Patient with Karla Clark UPPER INSPECTOR 03/31/2020 Encounter for Immunization Nurse Visit with Gary Floresen [facility] 03/14/2020 Body mass index Medical Established Patient with Karla Floresen UPPER INSPECTOR 02/26/2020 Overweight Medical Established Patient with Karla Clark [facility] 02/26/2020 Overweight Medical Established Patient with Karla Clark [facility] 07/23/2019 Z68.27 - Body mass index (BM I) 27.0-27.9, adult Medical Established Patient with Karla Floresen UPPER INSPECTOR 07/23/2019 Occasional asthma CPS- Asthma Clinic- F/U with Karla Amber [facility] 06/05/2019 Overweight CPS- Asthma Clinic- F/U with Karla Amber [facility] 06/05/2019 Z68.27 - Body mass index (BM I) 27.0-27.9 adult CPS- Asthma Clinic- F/U with Karla Amber [facility] 06/05/2019 Occasional asthma CPS Med Review with Karla Floresen [facility] 04/23/2019 Overweight CPS Med Review with Karla Clark [facility] 04/23/2019 Z68.27 - Body mass index (BM I) 27.0-27.9 adult CPS Med Review with Karla Clark [facility] 04/23/2019 Acute pharyngitis Medical Established Patient with Brandy Serranoer [facility] 04/15/2019 Asthmatic bronchitis with ac cahto exacerbation Medical Established Patient with Brandy Serranoer [facility] 04/15/2019 Fagerstrom Score was two Medical Establi shed Patient with Brandy Serranoer [facility] 04/15/2019 PHQ-9: total score was three 04/15/2019 Medical Established Patient with Brandy Warren [facility] 04/15/2019 Body mass index Medical Established Patient with Karla Clark [facility] 03/05/2019 Diabetes Risk Test Score was three score Medical Established Patient with Karla Amber UPPER INSPECTOR 03/05/2019 Overweight Medical Established Patient with Karla Amber [facility] 03/05/2019 Z68.28 - Body mass index (BM I) 28.0-28.9, adult Medical Established Patient with Karla Amber UPPER INSPECTOR 12/22/2018 Assess routine adult history and physical (18 - 64 yrs) Medical Established Patient with Karlajulius Clark UPPER INSPECTOR 11/06/2018 Overweight Medical Established Patient with Karlajulius Clark UPPER INSPECTOR 11/06/2018 Z68.28 - Body mass index (BM I) 28.0-28.9, adult Medical Established Patient with Karlajulius Clark UPPER INSPECTOR 11/06/2018 Assess dysphagia Medical Established Patient with Karlajulius Clark UPPER INSPECTOR 09/11/2018 Assess routine adult history and physical (18 - 64 yrs) Medical Established Patient with Karlajulius Clrak [facility] 09/11/2018 Assess primary insomnia with sleep apnea Medical Established Patient with Karlajulius Clark UPPER INSPECTOR 09/04/2018 Assess routine adult history and physical (18 - 64 yrs) Medical Established Patient with Karlajulius Clark UPPER INSPECTOR 09/04/2018 Overweight Medical Established Patient with Karlajulius Clark UPPER INSPECTOR 09/04/2018 Z68.29 - Body mass index (BM I) 29.0-29.9, adult Medical Established Patient with Karlajulius Clark UPPER INSPECTOR 09/04/2018 Assess vaginal candidiasis Medical Estab lished Patient with Karlajulius Clark [facility] 07/31/2018 Diagnosis Abnormal ultrasound of breast Other (abnormal) findings on radiological examination of breast Lesion of breast Unspecified breast disorder Diagnosis Hyperprolactinemia (HCC) Other and unspecified anterior pituitary hyperfunction Findings Encounter Date Acute pharyngitis Medical Established Patient with Brandy Warren UPPER INSPECTOR 04/15/2019 Asthmatic bronchitis with ac cahto exacerbation Medical Established Patient with Brandy Serranoer [facility] 04/15/2019 Fagerstrom Score was two Medical Establi shed Patient with Brandy Kelley [facility] 04/15/2019 PHQ-9: total score was three 04/15/2019 Medical Established Patient with Brandy Kelley [facility] 04/15/2019 Body mass index Medical Established Patient with Karla Clark [facility] 03/05/2019 Diabetes Risk Test Score was three score Medical Established Patient with Karla Clark [facility] 03/05/2019 Overweight Medical Established Patient with Karlajulius Clark [facility] 03/05/2019 Z68.28 - Body mass index (BM I) 28.0-28.9, adult Medical Established Patient with Karla Clark UPPER INSPECTOR 12/22/2018 Assess routine adult history and physical (18 - 64 yrs) Medical Established Patient with Karlajulius Clark UPPER INSPECTOR 11/06/2018 Overweight Medical Established Patient with Karlajulius Floresen UPPER INSPECTOR 11/06/2018 Z68.28 - Body mass index (BM I) 28.0-28.9, adult Medical Established Patient with Karla Amber UPPER INSPECTOR 11/06/2018 Assess dysphagia Medical Established Patient with Karla Amber UPPER INSPECTOR 09/11/2018 Assess routine adult history and physical (18 - 64 yrs) Medical Established Patient with Karla Amber UPPER INSPECTOR 09/11/2018 Assess primary insomnia with sleep apnea Medical Established Patient with Karla Amber UPPER INSPECTOR 09/04/2018 Assess routine adult history and physical (18 - 64 yrs) Medical Established Patient with Karla Amber UPPER INSPECTOR 09/04/2018 Overweight Medical Established Patient with Karla Amber UPPER INSPECTOR 09/04/2018 Z68.29 - Body mass index (BM I) 29.0-29.9, adult Medical Established Patient with Karla Amber UPPER INSPECTOR 09/04/2018 Assess vaginal candidiasis Medical Estab lished Patient with Karla Amber UPPER INSPECTOR 07/31/2018 Findings Encounter Date Z68.24 - Body mass index [BM I] 24.0-24.9, adult Medical Established Patient with Karla Amber UPPER INSPECTOR 06/17/2020 Overweight Medical Established Patient with Karla Amber UPPER INSPECTOR 06/06/2020 Z68.25 - Body mass index [BM I] 25.0-25.9, adult Medical Established Patient with Karla Amber UPPER INSPECTOR 06/06/2020 Antiasthmatics CPS Asthma Clinic-Ne w with Karlajulius Clark UPPER INSPECTOR 05/06/2020 Assessment of tobacco use CPS Asthma Cli yash-New with Karlajulius Clark UPPER INSPECTOR 05/06/2020 Body mass index CPS Asthma Clinic-Ne w with Karlajulius Clark UPPER INSPECTOR 05/06/2020 Chronic obstructive pulmonary disease CP S Asthma Clinic-New with Karlajulius Clark UPPER INSPECTOR 05/06/2020 Overweight CPS Asthma Clinic-Ne w with Karlajulius Clark [facility] 05/06/2020 Z11.4 - Encounter for screen ing for human immunodeficiency virus [HIV] CPS Asthma Clinic-New with Karla Amber [facility] 05/06/2020 Diabetes Risk Test Score was three score 03/31/2020 Medical Established Patient with Karla Amber UPPER INSPECTOR 03/31/2020 Overweight Medical Established Patient with Karlajulius Clark UPPER INSPECTOR 03/31/2020 Z68.25 - Body mass index [BM I] 25.0-25.9, adult Medical Established Patient with Karla Amber UPPER INSPECTOR 03/31/2020 Encounter for Immunization Nurse Visit with Gary Clark [facility] 03/14/2020 Body mass index Medical Established Patient with Karlajulius Clark UPPER INSPECTOR 02/26/2020 Overweight Medical Established Patient with Karlajulius Floresen UPPER INSPECTOR 02/26/2020 Overweight Medical Established Patient with Karla Amber UPPER INSPECTOR 07/23/2019 Z68.27 - Body mass index (BM I) 27.0-27.9, adult Medical Established Patient with Karlajulius Floresen UPPER INSPECTOR 07/23/2019 Occasional asthma CPS- Asthma Clinic- F/U with Karlajulius Floresen UPPER INSPECTOR 06/05/2019 Overweight CPS- Asthma Clinic- F/U with Karlajulius Floresen UPPER INSPECTOR 06/05/2019 Z68.27 - Body mass index (BM I) 27.0-27.9 adult CPS- Asthma Clinic- F/U with Karlajulius Floresen UPPER INSPECTOR 06/05/2019 Occasional asthma CPS Med Review with Karla Amber [facility] 04/23/2019 Overweight CPS Med Review with Karlajulius Floresen [facility] 04/23/2019 Z68.27 - Body mass index (BM I) 27.0-27.9 adult CPS Med Review with Karlajulius Floresen [facility] 04/23/2019 Acute pharyngitis Medical Established Patient with Brandy Warren [facility] 04/15/2019 Asthmatic bronchitis with ac cahto exacerbation Medical Established Patient with Brandy Warren UPPER INSPECTOR 04/15/2019 Fagerstrom Score was two Medical Establi shed Patient with Brandy Warren [facility] 04/15/2019 PHQ-9: total score was three 04/15/2019 Medical Established Patient with Brandy Warren [facility] 04/15/2019 Body mass index Medical Established Patient with Karla Clark [facility] 03/05/2019 Diabetes Risk Test Score was three score Medical Established Patient with Karla Clark [facility] 03/05/2019 Overweight Medical Established Patient with Karla Amber [facility] 03/05/2019 Z68.28 - Body mass index (BM I) 28.0-28.9, adult Medical Established Patient with Karla Clark UPPER INSPECTOR 12/22/2018 Assess routine adult history and physical (18 - 64 yrs) Medical Established Patient with Karla Amber UPPER INSPECTOR 11/06/2018 Overweight Medical Established Patient with Karla Amber UPPER INSPECTOR 11/06/2018 Z68.28 - Body mass index (BM I) 28.0-28.9, adult Medical Established Patient with Karla Amber UPPER INSPECTOR 11/06/2018 Assess dysphagia Medical Established Patient with Karla Amber UPPER INSPECTOR 09/11/2018 Assess routine adult history and physical (18 - 64 yrs) Medical Established Patient with Karla Clark UPPER INSPECTOR 09/11/2018 Assess primary insomnia with sleep apnea Medical Established Patient with Karla Clark UPPER INSPECTOR 09/04/2018 Assess routine adult history and physical (18 - 64 yrs) Medical Established Patient with Karla Amber UPPER INSPECTOR 09/04/2018 Overweight Medical Established Patient with Karla Floresen UPPER INSPECTOR 09/04/2018 Z68.29 - Body mass index (BM I) 29.0-29.9, adult Medical Established Patient with Karla Amber UPPER INSPECTOR 09/04/2018 Assess vaginal candidiasis Medical Estab lished Patient with Karla Floresen UPPER INSPECTOR 07/31/2018 Findings Encounter Date Diabetes Risk Test Score was three score 03/31/2020 Medical Established Patient with Karla Floresen [facility] 03/31/2020 Overweight Medical Established Patient with Karla Amber [facility] 03/31/2020 Z68.25 - Body mass index [BM I] 25.0-25.9, adult Medical Established Patient with Karla Florseen [facility] 03/31/2020 Encounter for Immunization Nurse Visit with GaryNicolasa [facility] 03/14/2020 Body mass index Medical Established Patient with Karla Amber [facility] 02/26/2020 Overweight Medical Established Patient with Karla Amber [facility] 02/26/2020 Overweight Medical Established Patient with Karla Amber [facility] 07/23/2019 Z68.27 - Body mass index (BM I) 27.0-27.9, adult Medical Established Patient with Karla Amber [facility] 07/23/2019 Occasional asthma CPS- Asthma Clinic- F/U with Karlajulius Clark [facility] 06/05/2019 Overweight CPS- Asthma Clinic- F/U with Karlajulius Clark [facility] 06/05/2019 Z68.27 - Body mass index (BM I) 27.0-27.9 adult CPS- Asthma Clinic- F/U with Karlajulius Clark [facility] 06/05/2019 Occasional asthma CPS Med Review with Karlajulius dinh [facility] 04/23/2019 Overweight CPS Med Review with Karlajulius Clark [facility] 04/23/2019 Z68.27 - Body mass index (BM I) 27.0-27.9 adult CPS Med Review with Karlajulius Clark [facility] 04/23/2019 Acute pharyngitis Medical Established Patient with Brandy Kelley UPPER INSPECTOR 04/15/2019 Asthmatic bronchitis with ac cahto exacerbation Medical Established Patient with Brandy Kelley [facility] 04/15/2019 Fagerstrom Score was two Medical Establi shed Patient with Brandy Kelley UPPER INSPECTOR 04/15/2019 PHQ-9: total score was three 04/15/2019 Medical Established Patient with Brandy Kelley UPPER INSPECTOR 04/15/2019 Body mass index Medical Established Patient with Karla Clark UPPER INSPECTOR 03/05/2019 Diabetes Risk Test Score was three score Medical Established Patient with Karlajulius Clark UPPER INSPECTOR 03/05/2019 Overweight Medical Established Patient with Karla Amber UPPER INSPECTOR 03/05/2019 Z68.28 - Body mass index (BM I) 28.0-28.9, adult Medical Established Patient with Karla Amber UPPER INSPECTOR 12/22/2018 Assess routine adult history and physical (18 - 64 yrs) Medical Established Patient with Karla Amber UPPER INSPECTOR 11/06/2018 Overweight Medical Established Patient with Karla Amber UPPER INSPECTOR 11/06/2018 Z68.28 - Body mass index (BM I) 28.0-28.9, adult Medical Established Patient with Karla Amber UPPER INSPECTOR 11/06/2018 Assess dysphagia Medical Established Patient with Karla Amber [facility] 09/11/2018 Assess routine adult history and physical (18 - 64 yrs) Medical Established Patient with Karla Amber [facility] 09/11/2018 Assess primary insomnia with sleep apnea Medical Established Patient with Karla Amber UPPER INSPECTOR 09/04/2018 Assess routine adult history and physical (18 - 64 yrs) Medical Established Patient with Karla Amber UPPER INSPECTOR 09/04/2018 Overweight Medical Established Patient with Karla Amber UPPER INSPECTOR 09/04/2018 Z68.29 - Body mass index (BM I) 29.0-29.9, adult Medical Established Patient with Karla Amber UPPER INSPECTOR 09/04/2018 Assess vaginal candidiasis Medical Estab lished Patient with Karla Amber [facility] 07/31/2018 Diagnosis Duct ectasia of breast, left Findings Encounter Date Body mass index Medical Established Patient with Karla Amber UPPER INSPECTOR 03/05/2019 Diabetes Risk Test Score was three score Medical Established Patient with Karla Amber UPPER INSPECTOR 03/05/2019 Overweight Medical Established Patient with Karla Amber [facility] 03/05/2019 Z68.28 - Body mass index (BM I) 28.0-28.9, adult Medical Established Patient with Karla Amber UPPER INSPECTOR 12/22/2018 Assess routine adult history and physical (18 - 64 yrs) Medical Established Patient with Karla Amber UPPER INSPECTOR 11/06/2018 Overweight Medical Established Patient with Karla Amber UPPER INSPECTOR 11/06/2018 Z68.28 - Body mass index (BM I) 28.0-28.9, adult Medical Established Patient with Karlajulius Clark UPPER INSPECTOR 11/06/2018 Assess dysphagia Medical Established Patient with Karla Amber UPPER INSPECTOR 09/11/2018 Assess routine adult history and physical (18 - 64 yrs) Medical Established Patient with Karlajulius Clark UPPER INSPECTOR 09/11/2018 Assess primary insomnia with sleep apnea Medical Established Patient with Karlajulius Clark UPPER INSPECTOR 09/04/2018 Assess routine adult history and physical (18 - 64 yrs) Medical Established Patient with Karla Amber UPPER INSPECTOR 09/04/2018 Overweight Medical Established Patient with Karla Amber UPPER INSPECTOR 09/04/2018 Z68.29 - Body mass index (BM I) 29.0-29.9, adult Medical Established Patient with Karla Clark UPPER INSPECTOR 09/04/2018 Assess vaginal candidiasis Medical Estab lished Patient with Kalrajulius Clark UPPER INSPECTOR 07/31/2018 Instructions Instructions not supported for this [...] History of Present Illness Recorded Family History Description Last Updated No significant medical history in nuclea r family 07/31/2018 Description Last Updated No significant medical history in nuclea r family 07/31/2018 Last Documented On 9 2:12PM ; [facility] Description Last Updated No significant medical history in nuclea r family 07/31/2018 Last Documented On 9 2:12PM ; [facility] Description Last Updated No significant medical history in nuclea r family 07/31/2018 Last Documented On 9 2:12PM ; [facility] Description Last Updated No significant medical history in nuclea r family 07/31/2018 Last Documented On 9 2:12PM ; [facility] Relationship Condition Age at Onset Recorded Date/T aviva Not Specified Intellectual disability Unknown father History of coronary artery stent placement Unknown Coronary artery disease Unknown Not Specified Recurrent cerebrovas cular accidents (CVAs) Unknown brother Congestive heart failure Unknown Muscular dystrophy Unknown Description Last Updated No significant medical history in nuclea r family 07/31/2018 Last Documented On 9 2:12PM ; [facility] Description Last Updated Maternal history of breast neoplasm 02/02 Last Documented On 3 9:51AM ; [facility] No significant medical history in nuclea r family 07/31/2018 Last Documented On 9 2:12PM ; [facility] Relationship Condition Age at Onset Recorded Date/T aviva father History of coronary artery stent placement Unknown Coronary artery disease Unknown Not Specified Recurrent cerebrovas cular accidents (CVAs) Unknown brother Congestive heart failure Unknown Muscular dystrophy Unknown Description Last Updated Maternal history of breast neoplasm 02/02 Last Documented On 3 9:51AM ; [facility] No significant medical history in nuclea r family 07/31/2018 Last Documented On 9 2:12PM ; [facility] Relationship Condition Age at Onset Recorded Date/T aviva father History of coronary artery stent placement Unknown Coronary artery disease Unknown Not Specified Recurrent cerebrovas cular accidents (CVAs) Unknown brother Congestive heart failure Unknown Muscular dystrophy Unknown brother Unknown Heart disease Unknown Not Specified Malignant neoplasm Unknown Description Last Updated Maternal history of breast neoplasm 02/02 Last Documented On 3 9:51AM ; [facility] No significant medical history in nuclea r family 07/31/2018 Last Documented On 9 2:12PM ; [facility] Description Last Updated Maternal history of breast neoplasm 02/02 Last Documented On 3 9:51AM ; [facility] No significant medical history in nuclea r family 07/31/2018 Last Documented On 9 2:12PM ; [facility] Description Last Updated Maternal history of breast neoplasm 02/02 Last Documented On 3 9:51AM ; [facility] No significant medical history in nuclea r family 07/31/2018 Last Documented On 9 2:12PM ; [facility] Relationship Condition Age at Onset Recorded Date/T aviva father History of coronary artery stent placement Unknown Coronary artery disease Unknown mother Recurrent cerebrovas cular accidents (CVAs) Unknown brother Congestive heart failure Unknown Muscular dystrophy Unknown brother Unknown Heart disease Unknown mother Malignant neoplasm Unknown Description Last Updated Maternal history of breast neoplasm 02/02 Last Documented On 3 9:51AM ; [facility] No significant medical history in nuclea r family 07/31/2018 Last Documented On 9 2:12PM ; [facility] Review of System Review of Systems not [...] type No Physical Exam Recorded Advance Directives Documents on File Type Date Recorded Patient Tester Equipment Expl anation ACP-Power of High School Principal 08/01/2021 10:21 AM Date Activated Date Inactivated Comments 03/23/2013 12:03 AM 03/23/2013 7:42 PM Documents on File Type Date Recorded Patient Tester Equipment Expl anation ACP-Power of [employer] Principal 08/01/2021 10:21 AM Latest Code Status on File Code Status Date Activated Date Inactivated Comments Full Code 03/23/2013 12:03 AM 03/23/2013 7:42 PM Documents on File Type Date Recorded Patient Tester Equipment Expl anation Advance Directives and Living Will Power of High School Principal Latest Code Status on File Code Status Date Activated Date Inactivated Comments Full Code 03/23/2013 12:03 AM 03/23/2013 7:42 PM Documents on File Type Date Recorded Patient Tester Equipment Expl anation Advance Directives and Living Will Power of High School Principal Documents on File Type Date Recorded Patient Tester Equipment Expl anation ACP-Advance Directive ACP-Power of High School Principal Documents on File Type Date Recorded Patient Tester Equipment Expl anation ACP-Advance Directive ACP-Power of High School Principal Documents on File Type Date Recorded Patient Tester Equipment Expl anation ACP-Advance Directive ACP-Power of High School Principal ACP-Power of High School Principal 08/01/2021 10:21 AM Documents on File Type Date Recorded Patient Tester Equipment Expl anation ACP-Advance Directive ACP-Power of High School Principal ACP-Power of High School Principal 08/01/2021 10:21 AM Directive Pat Aware Third Green Party Effective Date Reviewed Mayra napier Advance Care Planning Yes 11/03/2021 Current and Verified Note: Discussed with patient about care planning in the future. Gave patient informational packet and was advised to fill out and bring back at next appointment. Advance Directive Response Recorded Date/ Time Advance Directives No September 10 2:51pm Advance Directive Response Recorded Date/ Time Advance Directives No September 13 7:15am Discharge Instructions * Instructions* Marina Ag [...] common and can be relieved with an syvj-eat-lnjzyky (non-aspirin) analgesic such as Tylenol. Please follow [...] common and can be relieved with an mphj-kkt-khsnexd (non-aspirin) analgesic such as Tylenol. Pleasefollow the [...] HC US BREAST COMP Billy Ojeda MD [address] [place] [address] [facility] Ultrasound [address] [place] [address] Status Reason Specialty Diagnoses / Procedures Referre d By Contact Referred To Contact Closed Radiology Diagnoses Abnormal mammogram Procedures LINDA DIGITAL DIAGNOSTIC W OR WO CAD LEFT Billy Ojeda MD [address] [place] [address] Status Reason Specialty Diagnoses / Procedures Referre d By Contact Referred To Contact Closed Radiology Diagnoses Hyperprolactinemia (HCC) Procedures MRI BRAIN W WO CONTRAST Karla Clark, MEMBERSHIP COUNSELOR - UPPER INSPECTOR [address] [place] [address] Status Reason Specialty Diagnoses / Procedures Referre d By Contact Referred To Contact Open Diagnoses Duct ectasia of breast, left Procedures US BREASt COMPLETE LEFT HC US BREAST COMP She Spencer, MEMBERSHIP COUNSELOR - CNM [address] [place] [address] Status Reason Specialty Diagnoses / Procedures Referre d By Contact Referred To Contact Closed Radiology Diagnoses History of breast biopsy Procedures ILNDA ERYN DIGITAL DIAGNOSTIC BILATERAL She Spencer, RODNEY - CNAlexey [address] [facility] [address] [place] [address] [facility] Women[facility] Center [address] [place] [address] Specialty Diagnoses / Procedures Referred By Oni t Referred To Contact Radiology Diagnoses Breast lump on right side at 4 o'clock position Procedures MRI BREAST BILATERAL W CONTRAST She Spencer APRN - ADAM [address] [place] [address] [address] [place] [address] Referral ID Status Reason Start Date Expiration Date Visits Re quested Visits Authorized [id number] Closed 07/19/2021 07/19/2022 1 1 Specialty Diagnoses / Procedures Referred By Contac t Referred To Contact Cardiology Diagnoses Pre-operative clearance Abnormal EKG History of ME (myocardial infarction) Procedures ECHO Complete 2D W Doppler W Color Héctor Turner MD [address] [place], [place] [id number] Referral ID Status Reason Start Date Expiration Date Visits Re quested Visits Authorized [id number] Closed 01/01/2022 01/01/2023 1 1 Summary Purpose Chief Complaint and Reason for Visit Chief Complaint Fracture Chief Complaint M25.511 Fracture Fracture Chief Complaint M25.511 Fracture Fracture S42.291D Chief Complaint S42.291D S42.291D Chief Complaint lithium schizaffective disorder- pink Reason for Visit Abdominal pain Flank pain Hypertension Prolonged Q-T interval on ECG Schizoaffective disorder Chief Complaint lithium schizaffective disorder- pink Schizoaffective Disorder Reason for Visit Abdominal pain Flank pain Hypertension Prolonged Q-T interval on ECG Schizoaffective disorder Abdominal pain MYESHA (acute kidney injury) Flank pain Nausea & vomiting Schizoaffective disorder Chief Complaint [facility] Reason for Visit Acute psychosis Chronic schizophrenia Chief Complaint [facility] See order Reason for Visit Acute psychosis Chronic schizophrenia Schizoaffective disorder Chief Complaint [facility] Reason for Visit MYESHA (acute kidney in jury) Schizoaffective disorder Chief Complaint [facility] Reason for Visit Acute psychosis MYESHA (acute [...] EACH ADDL LESION LEFT Billy Ojeda MD [address] [place] [address] [place] [address] Status Reason Specialty Diagnoses / Procedures Referre d By Contact Referred To Contact Closed Radiology Diagnoses Abnormal mammogram Procedures US BREAST COMPLETE LEFT HC US BREAST COMP Billy Ojeda MD [address] [place] [address] [address] [place] [address] [facility] Ultrasound [address] [place] [address] Status Reason Specialty Diagnoses / Procedures Referred By Contact Referred To Contact Pending Review Radiology Diagnoses Abnormal mammogram Procedures LINDA ERYN DIGITAL DIAGNOSTIC BILATERAL LINDA DIGITAL DIAGNOSTIC W OR WO CAD LEFT HC MAMMO DGX UNILATERAL INCL CAD IF PERF Billy Ojeda MD [address] [place] [address] [address] [place] [address] [place] [address] Status Reason Specialty Diagnoses / Procedures Referre d By Contact Referred To Contact Open Radiology Diagnoses Abnormal ultrasound of breast Lesion of breast Procedures US BREAST BIOPSY W LOC DEVICE 1ST LESION LEFT US GUIDED LEFT BREAST BIOPSY Billy Ojeda MD [address] [place] [address] [address] [place] [address] [facility] Ultrasound [address] [place] [address] Status Reason Specialty Diagnoses / Procedures Referre d By Contact Referred To Contact Closed Radiology Diagnoses Abnormal mammogram Procedures LINDA DIGITAL DIAGNOSTIC W OR WO CAD LEFT Billy Ojeda MD [address] [place] [address] [address] [place] [address] Status Reason Specialty Diagnoses / Procedures Referred By Contact Referred To Contact Pending Review Radiology Diagnoses Hyperprolactinemia Procedures HC MRI-BRAIN WO & W CONTRAST Karla Clark, MEMBERSHIP COUNSELOR - UPPER INSPECTOR [address] [place] [address] [facility] Mri [address] [place] [address] Status Reason Specialty Diagnoses / Procedures Referre d By Contact Referred To Contact Open Diagnoses Duct ectasia of breast, left Procedures US BREASt COMPLETE LEFT HC US BREAST COMP She Spencer APRN - CNM [address] [phone] Status Reason Specialty Diagnoses / Procedures Referre d By Contact Referred To Contact Closed Radiology Diagnoses History of breast biopsy Procedures LINDA ERYN DIGITAL DIAGNOSTIC BILATERAL She Spencer APRN - CNM [address] [place] [address] [address] [place] [address] [place] [address] Specialty Diagnoses / Procedures Referred By Contac t Referred To Contact Radiology Diagnoses Breast lump on right side at 4 o'clock position Procedures MRI BREAST BILATERAL W CONTRAST She Spencer MEMBERSHIP COUNSELOR - CNM [address] [facility] [address] [place] [address] Referral ID Status Reason Start Date Expiration Date Visits Re quested Visits Authorized [id number] Closed 07/19/2021 07/19/2022 1 1 Specialty Diagnoses / Procedures Referred By Contac t Referred To Contact Cardiology Diagnoses Pre-operative clearance Abnormal EKG History of ME (myocardial infarction) Procedures ECHO Complete 2D W Doppler W Color Héctor Turner MD [address] [place] [address] Referral ID Status Reason Start Date Expiration Date Visits Re quested Visits Authorized [id number] Closed 01/01/2022 01/01/2023 1 1 Specialty Diagnoses / Procedures Referred By Contac t Referred To Contact Dermatology Diagnoses neoplasm of uncertain behavior of skin Karla Clark MD [address] [place] [address] Dakota Mack MD [address] [facility] [address] [id number] Referral ID Status Reason Start Date Expiration Date Visits Re quested Visits Authorized [id number] Closed 06/13/2023 12/10/2023 1 1 Reason Comments Patient Question Reason Comments Follow Up Reason Onset Date Comments Seek NC/NS 03/05/2024 Contact 03/06 and ask for update on status and note need of guarentee of being present for PT Eval to enable a rs. FU 03/09/2024 Contacted to re uest status of Gail in regards to Miguel was notified she was transferred over. I spoke to nurse and she said reading paperwork it details she had an PT screening there at [facility]; she replied she is going to look into and contact me back re: OP PT. Reason Comments Altered Mental Status Reason Comments Needs transport to long-term Medical History (unrecognize d section and content) [...] depression 07/31/2018 History of psychiatric disorders 019 Care Teams (unrecognized sec tion and content) Team Status: Active Member Role Status Dates NON STAFF Primary Care Provider Active Team Status: Active Member Role Status Dates Karla Clark APRN SUPERVISOR DAIRY SANITATION-C Primary Care Provider Activ e Start: November [...] Active Member Role Status Dates Karla Clark RODNEY SUPERVISOR DAIRY SANITATION-C Primary Care Provider Activ e Team Status: Active Member Role Status Dates Karla Clark RODNEY SUPERVISOR DAIRY SANITATION-C Primary Care Provider Activ e Monster Davis MD Attending Provider Active Team Status: Inactive Member Role Status Dates Karla Clark RODNEY SUPERVISOR DAIRY SANITATION-C Primary Care Provider Activ e Emory Adame , DO Attending Provider Active Mule Spinner Relationship Specialty Start Date End Date Karla Clark, MEMBERSHIP COUNSELOR - UPPER INSPECTOR [address] [place] [facility] [address] PCP - General 02/23/16 Mule Spinner Relationship Specialty Start Date End Date Karla Clark, MEMBERSHIP COUNSELOR - UPPER INSPECTOR [address] [place] [facility] [address] PCP - General 02/23/16 Mule Spinner Relationship Specialty Start Date End Date Karla Clark, MEMBERSHIP COUNSELOR - UPPER INSPECTOR [address] [place] [facility] [address] PCP - General 02/23/16 Mule Spinner Relationship Specialty Start Date End Date Karla Clark, MEMBERSHIP COUNSELOR - UPPER INSPECTOR [address] [place] [facility] [address] PCP - General 02/23/16 Team Status: Inactive Member Role Status Dates Emory Adame DO Attending Provider Active Team Status: Inactive Member Role Status Dates Emory Adame DO Attending Provider Active Karla Blackburn Amber , RODNEY SUPERVISOR DAIRY SANITATION-C Primary Care Provider Activ e Team Status: Inactive Member Role Status Dates Emory Adame DO Attending Provider Active PHYSICIAN NO FAMILY Primary Care Provider Active Team Status: Inactive Member Role Status Dates Karla Blackburn RODNEY Clark SUPERVISOR DAIRY SANITATION-C Primary Care Provider Activ e Zak Reza DO Attending Provider Active Team Status: Inactive Member Role Status Dates Joe Davis MD Admit Provider, Attending P jackie Active NON STAFF Primary Care Provider Active Cecilia Soares RN Other Provider Active Florencia Pizarro RN Other Provider Active Stacey Hudson , TAWANNA Other Provider Active Ann-Marie Sams , RN Other Provider Active Lisseth Galvan , RN Other Provider Active Ragini Quiñonez , RN Other Provider Active Ana Milan , MEMBERSHIP COUNSELOR Other Provider Active Barbie Choi , DO [...] MD Other Provider Active Roseline Aguilar , SUPERVISOR DAIRY SANITATION-C Other Provider Active Jaswinder Robert MD Other Provider Active Titus Christianson MD Other Provider Active Kody Leon MD Other Provider Active Gibson Cid MD Other Provider Active Yolanda Davila , DO Other Provider Active Jeancarlos Bonilla , DO Other Provider Active Scottie Quinn , DO Other Provider Active Maddy Hallman MEMBERSHIP COUNSELOR Other Provider Active Jose Huang , DO Other Provider Active Naga Lundberg MD Other Provider Active Leny Spencer MEMBERSHIP COUNSELOR Other Provider Active Winnie Jenkins , MEMBERSHIP COUNSELOR Other Provider Active Greg Ocampo MD Other Provider Active Loy Rivers MD Other Provider Active Ludwig Amador , DO Other Provider Active Pinky Jewell MEMBERSHIP COUNSELOR Other Provider Active Alice Grimaldo RN Other Provider Active Team Status: Inactive Member Role Status Dates NON STAFF Primary Care Provider Active Joe Davis MD Admit Provider, Attending Alpa mejia Active Cecilia Soares , TAWANNA Other Provider Active Florencia Pizarro RN Other Provider Active Stacey Hudson , TAWANNA Other Provider Active Ann-Marie Sams , TAWANNA Other Provider Active Lisseth Galvan RN Other Provider Active Ragini Quiñonez , TAWANNA Other Provider Active Chris Adam MD Other Provider Active Ana Milan , MEMBERSHIP COUNSELOR Other Provider Active Barbie Choi , DO Other Provider Active Braden Dill MD Other Provider Active Chandu Villafana , DO Other Provider Active Thomas Mendez MD Other Provider Active Kathrine Naik MD Other Provider Active Mariana Pryor , MEMBERSHIP COUNSELOR Other Provider Active Angel Haley MD Other Provider Active Link Salazar MD Other Provider Active Rosa Lowe MD Other Provider Active Brad Peng MD Other Provider Active Khalif Pettit , DO Other Provider Active Sherif Campbell MD Other Provider Active Francisco Keene MD Other Provider Active Roseline Aguilar , SUPERVISOR DAIRY SANITATION-C Other Provider Active Jaswinder Robert MD Other Provider Active Titus Christianson MD Other Provider Active Kody Leon MD Other Provider Active Gibson Cid MD Other Provider Active Yolanda Davila , DO Other Provider Active Jeancarlos Bonlila , DO Other Provider Active Scottie Quinn , DO Other Provider Active Maddy Hallman MEMBERSHIP COUNSELOR Other Provider Active Jose Huang , DO Other Provider Active Naga Lundberg MD Other Provider Active Leny Spencer , MEMBERSHIP COUNSELOR Other Provider Active Winnie Jenkins , MEMBERSHIP COUNSELOR Other Provider Active Greg Ocampo MD Other Provider Active Loy Rivers MD Other Provider Active Ludwig Amador , DO Other Provider Active Pinky Jeewll MEMBERSHIP COUNSELOR Other Provider Active London Mccann , DO Other Provider Active Alice Grimaldo , TAWANNA Other Provider Active Team Status: Inactive Member Role Status Dates Joe Davis MD Admit Provider, Attending P jackie Active NON STAFF Primary Care Provider Active Cecilia Soares , RN Other Provider Active Florencia Pizarro , RN Other Provider Active Stacey Hudson , RN Other Provider Active Ann-Marie Sams , RN Other Provider Active Lisseth Galvan , RN Other Provider Active Ragini Quiñonez , TAWANNA Other Provider Active Ana Milan , MEMBERSHIP COUNSELOR Other Provider Active Barbie Choi , DO Other Provider Active Braden Dill MD Other Provider Active Chandu Villafana , DO Other Provider Active Thomas Mendez MD Other Provider Active Kathrine Naik MD Other Provider Active Mariana Pryor , MEMBERSHIP COUNSELOR Other Provider Active Angel Haley MD Other Provider Active Link Salazar MD Other Provider Active Rosa Lowe MD Other Provider Active Brad Peng MD Other Provider Active Khalif Pettit , DO Other Provider Active Sherif Campbell MD Other Provider Active Francisco Keene MD Other Provider Active Roseline Aguilar , SUPERVISOR DAIRY SANITATION-C Other Provider Active Jaswinder Robert MD Other Provider Active Titus Christianson MD Other Provider Active Kody Leon MD Other Provider Active Gibson Cid MD Other Provider Active Yolanda Davila , DO Other Provider Active Jeancarlos Bonilla , DO Other Provider Active Scottie Quinn , DO Other Provider Active Maddy Hallman , MEMBERSHIP COUNSELOR Other Provider Active Jose Huang , DO Other Provider Active Naga Lundberg MD Other Provider Active Leny Spencer , MEMBERSHIP COUNSELOR Other Provider Active Winnie Jenkins , MEMBERSHIP COUNSELOR Other Provider Active Greg Ocampo MD Other Provider Active Loy Rivers MD Other Provider Active Ludwig Amador , DO Other Provider Active Pinky Jewell , MEMBERSHIP COUNSELOR Other Provider Active Alice Grimaldo RN Other Provider Active Team Status: Inactive Member Role Status Dates NON STAFF Primary Care Provider Active Start: August 20, 2023 End: August 20, 2023 Alannah James DO Attending Provider Active S tart: August 20, 2023 End: August 20, 2023 Mule Spinner Relationship Specialty Start Date End Date Deepti Britt MD [address] [facility] [address] [place] [address] Referring Ent - Otolaryngology 01/25/23 Mule Spinner Relationship Specialty Start Date End Date Deepti Britt MD [address] [facility] [address] [place] [address] Referring Ent - Otolaryngology 01/25/23 Team Status: Inactive Member Role Status Dates NON STAFF Primary Care Provider Active Start: December 16, 2023 End: December 24, 2023 EVAN Acosta-C Emergency Provider Active Start: December 16, 2023 [...] Other Provider Active Start: December 18, 2023 Mule Spinner Relationship Specialty Start Date End Date Kentrell Hurley DO [address] [facility] [address] [place] [address] PCP - General Family Medicine 02/18/24 Karla Clark MD [address] [place] [address] Referring Physician Family Medicine 08/28/23 Mule Spinner Relationship Specialty Start Date End Date aKrla Clark, MEMBERSHIP COUNSELOR - UPPER INSPECTOR [address] [place] [address] PCP - General 02/23/16 Mule Spinner Relationship Specialty Start Date End Date Karla Clark, MEMBERSHIP COUNSELOR - UPPER INSPECTOR [address] [place] [address] PCP - General 02/23/16 Mule Spinner Relationship Specialty Start Date End Date Kentrell Hurley DO [address] [facility] [address] [place] [address] PCP - General Family Medicine 02/18/24 Karla Clark MD [address] [place] [address] Referring Physician Family Medicine 08/28/23 Mule Spinner Relationship Specialty Start Date End Date Kentrell Hurley DO [address] [place] [address] PCP - General Family Medicine 02/18/24 Karla Clark MD [address] [place] [address] Referring Physician Family Medicine 08/28/23 Mule Spinner Relationship Specialty Start Date End Date Kentrell Hurley DO [address] [place] [address] PCP - General Family Medicine 02/18/24 Karla Clark MD [address] [place] [address] Referring Physician Family Medicine 08/28/23 Mule Spinner Relationship Specialty Start Date End Date Kentrell Hurley DO [address] [facility] [address] [place] [address] PCP - General Family Medicine 02/18/24 Karla Clark MD [address] [place] [address] Referring Physician Family Medicine 08/28/23 INFORMATION SOURCE (unrecogn ized section and content) DATE CREATED AUTHOR 10/26/2021 [facility] DATE CREATED AUTHOR AUTHOR'S ORGANIZ ATION 11/10/2022 [facility] DATE CREATED AUTHOR AUTHOR'S ORGANIZ ATION 02/03/2023 [facility] DATE CREATED AUTHOR AUTHOR'S ORGANIZ ATION 06/05/2023 [facility] DATE CREATED AUTHOR AUTHOR'S ORGANIZ ATION 09/29/2023 [facility] DATE CREATED AUTHOR AUTHOR'S ORGANIZ ATION 02/27/[address] [facility] DATE CREATED AUTHOR AUTHOR'S ORGANIZ ATION 03/21/2024 [facility] DATE CREATED AUTHOR AUTHOR'S SEAN ATION 04/26/2024 [facility] Goals (unrecognized section and content) Goals may be documented in a n alternate section Source Comments (unrecognize d section and content) In the event this informatio n is protected by the Federal Confidentiality of Alcohol and Drug Abuse Patient Records regulations: The Federal rules restrict any use of the information to criminally investigate or prosecute any alcohol or drug abuse patient.[facility] the event this information is protected by the Federal Confidentiality of Alcohol and Drug Abuse Patient Records regulations: The Federal rules restrict any use of the information to criminally investigate or prosecute any alcohol or drug abuse patient[facility] Scheduled Active and Recently Administ ered Medications (unrecognized section and content) Medication Order 04/21/2024 04/22/2024 04/23/2024 aspirin chewable tablet 324 mg 324 mg, Oral, ONCE, 1 dose, On Yasmine 04/23/24 at 1400 1354 (Not Given - Pr ovider: Sita Gonzalez RN - Reason: Patient/family refused - Comment: pt reports allergy. states she goes into shock ) clopidogrel (PLAVIX) tablet 300 mg (COMPLETED) 300 mg, Oral, ONCE, 1 dose, On Yasmine 04/23/24 at 1400 1352 (Given - Provid er: Sita Gonzalez RN) PRN Medication Order 04/21/2024 04/22/2024 04/23/2024 iopamidol (ISOVUE-370) 76 % injection 90 mL (COMPLETED) 90 mL, IntraVENous, IMG ONCE PRN, 1 dose, Starting on Yasmine 04/23/24 at 1330, Until Yasmine 04/23/24 at 1330, Other 1330 (Given - Provid er: Lu Márquez) Scheduled Medication Order 04/22/2024 04/23/2024 04/24/2024 amantadine (SYMMETREL) capsule 100 mg (COMPLETED) 100 mg, Oral, ONCE, 1 dose, On Yasmine 04/23/24 at 2200 2326 (Given - Provider: Jessa Serrano, ATWANNA) benztropine (COGENTIN) tablet 0.5 mg (COMPLETED) 0.5 mg, Oral, ONCE, 1 dose, On Yasmine 04/23/24 at 2200 2326 (Given - Provider: Jessa Serrano, TAWANNA) lithium tablet 300 mg (COMPLETED) 300 mg, Oral, ONCE, 1 dose, On Yasmine 04/23/24 at 2200, Maintain adequate fluid and sodium intake 2326 (Given - Provider: Jessa Serrano, TAWANNA) FOR RECORDS PERTAINING TO PATIENTS WHO ARE [...] BE BASED ON THE PRIMARY CLINICAL RECORDS. [employer] provides no warranty or guarantee of the accuracy or completeness of information in this document.
--- NOTE | 2024-05-31 16:30 | ECG_ITS ---
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
--- NOTE | 2024-05-31 16:36 | ED_ITS ---
HPI HPI - General Adult General Chief complaint: Neuro Symptoms/Deficit Stated complaint: Syncope Time Seen by Provider: 05/31/24 16:36 Mode of arrival: ambulance History of Present Illness HPI narrative: This patient was brought to us by local paramedics from a local care facility the care facility did not call any report We are trying to contact them at this time. Nursing staff saw this patient initially and because of some slurri ng of her speech sent her immediately to the CAT scan suite. I then found her after she returned from there and went over and looked at the CT with I do not show any acute ischemic or hemorrhagic stroke it will be read by the neuroradiologist on-call and the stat ICU/strokelike protocol. We will try to contact family as she does confirm that she has Parkinson's disease and does have some slurred speech and shaking on a regular basis. Beyond that she does not have any specific complaint of chest pain or shortness of breath. Were not exactly sure what was she was transferred for at this time. Her vital signs are essentially stable with no respiratory distress. Twelve- lead EKG was done on arrival and does not show any acute ST segment elevation or abnormality. There is a right bundle branch block and a left anterior fascicular block but no other malignant arrhythmia. After repeated calls to her care facility they were finally kind enough to let us talk to the nurse there who confirmed that her slurred speech and life left- sided facial droop is old and not new. They said around 4:00 today she is started shaking and felt dizzy and off balance and sat back in bed. There was no other change in her neurological condition status or habitus. Related Data Home Medications ?Medication ?Instructions ?Recorded ?Confirmed amantadine HCl 100 mg tablet 100 mg PO BID 03/11/23 04/22/23 benztropine 0.5 mg tablet 0.5 mg PO BID 03/11/23 04/22/23 lithium carbonate 150 mg capsule 150 mg PO BID 03/11/23 04/22/23 quetiapine 300 mg tablet (Seroquel) 700 mg PO DAILY 03/11/23 03/25/23 albuterol sulfate 90 mcg/actuation 2 inh inhalation Q6H PRN shortness 03/25/23 04/22/23 breath activated powder inhaler of breath or wheezing benzonatate 100 mg capsule 100 mg PO TID 03/25/23 04/22/23 calcium 500 mg (as 1 tab PO DAILY 03/25/23 03/25/23 carbonate)-vitamin D3 5 mcg (200 unit) tablet (Oyster Shell Calcium-Vitamin D3) clonidine HCl 0.1 mg tablet 0.1 mg PO DAILY 03/25/23 04/22/23 docusate sodium 100 mg capsule 100 mg PO DAILY 03/25/23 04/22/23 famotidine 20 mg tablet 20 mg PO Q12H 03/25/23 04/22/23 fluticasone 250 mcg-salmeterol 50 1 inh inhalation Q12H 03/25/23 04/22/23 mcg/dose blistr powdr for inhalation (Wixela Inhub) fluticasone propionate 50 1 spray intranasal BID 03/25/23 03/25/23 mcg/actuation nasal spray,suspension (24 Hour Allergy Relief) folic acid 0.8 mg capsule 800 mcg PO DAILY 03/25/23 04/22/23 hydrocodone 5 mg-acetaminophen 325 1 tab PO Q6H PRN pain 03/25/23 03/25/23 mg tablet loratadine 10 mg tablet 10 mg PO Q24H 03/25/23 04/22/23 mecobalamin (vitamin B12) 5,000 5,000 mcg PO DAILY 03/25/23 03/25/23 mcg chewable tablet meloxicam 15 mg tablet 15 mg PO DAILY 03/25/23 04/22/23 polyethylene glycol 3350 17 17 g PO DAILY 03/25/23 03/25/23 gram/dose oral powder (Miralax) quetiapine 400 mg tablet,extended 400 mg PO DAILY 03/25/23 04/22/23 release 24 hr risperidone microspheres 25 mg/2 25 mg IM Q14D 03/25/23 04/22/23 mL intramuscular susp,ext release (Risperdal Consta) topiramate 25 mg tablet (Topamax) 25 mg PO BEDTIME 03/25/23 04/22/23 Lactobacillus acidophilus 100 mg PO DAILY 04/22/23 04/22/23 (Acidophilus capsule) albuterol sulfate 90 mcg/actuation 2 inh inhalation Q6H PRN shortness 04/22/23 04/22/23 aerosol inhaler of breath or wheezing cyanocobalamin (vitamin B-12) 500 500 mcg PO DAILY 04/22/23 04/22/23 mcg tablet (Vitamin B-12) famotidine 20 mg tablet 20 mg PO BID 04/22/23 04/22/23 fluticasone 250 mcg-salmeterol 50 1 inh inhalation BID 04/22/23 04/22/23 mcg/dose blistr powdr for inhalation (Advair Diskus) polyethylene glycol 3350 17 17 g PO DAILY 04/22/23 04/22/23 gram/dose oral powder (Miralax) quetiapine 100 mg tablet 100 mg PO BID 04/22/23 04/22/23 quetiapine 25 mg tablet 25 mg PO BID 04/22/23 04/22/23 Previous Rx's ?Medication ?Instructions ?Recorded azithromycin 250 mg tablet See Rx Instructions PO .COMPLEX #6 04/22/23 (Zithromax Z-Manoj) tabs Allergies Allergy/AdvReac Type Severity Reaction Status Date / Time aspirin Allergy Severe Unknown Verified 01/14/24 05:28 Barbiturates Allergy Severe Unknown Verified 01/14/24 05:28 fluoxetine Allergy Severe Unknown Verified 01/14/24 05:28 meperidine Allergy Severe Unknown Verified 01/14/24 05:28 Penicillins Allergy Severe Anaphylaxis Verified 01/14/24 05:28 codeine Allergy Unknown Verified 01/14/24 05:28 Sulfa (Sulfonamide AdvReac Mild Altered Verified 01/14/24 05:28 Antibiotics) Sense of Taste Opioid HPI Opioid Management Most Recent Opioid Data: Ur Phencyclidine Scrn Negative (NEGATIVE) 03/25/23 19:43 03/04 08/23 PFSH PFSH Social History Smoking status: Current every day smoker Exam Narrative Exam Narrative: Upon returning from the CT scan I evaluated the patient fully. She follows all simple and complex commands. Neurological examination shows an NIH stroke score of 0. She has no pronator drift. She has generalized tremor of both upper extremities consistent with Parkinson's disease. She has no diplopia or dysphagia. Her speech is always slightly slurred. Her cognition and mental status seem to be intact and normal. She denies any chest pain or heaviness or severe headache at this time. Her skin is warm and dry and her mucous moist and pink. Her vital signs are normal there is no respiratory distress. Belly is soft and supple there is no tenderness guarding or rebound. She has no pain or discomfort to palpation. Extremities do not show evidence of phlebitis edema or DVT. Constitutional Vital Signs, click to edit/add: Last Vital Signs Pulse 70 05/31/24 16:16 Resp 18 05/31/24 16:16 BP 140/80 05/31/24 16:16 Pulse Ox 94 L 05/31/24 16:16 O2 Del Method Room Air 05/31/24 16:16 Course Vital Signs Vital signs: Vital Signs Pulse Rate 70 05/31/24 16:16 Respiratory Rate 18 05/31/24 16:16 Blood Pressure 140/80 05/31/24 16:16 Pulse Oximetry 94 L 05/31/24 16:16 Oxygen Delivery Method Room Air 05/31/24 16:16 Pulse Rate 70 05/31/24 16:16 Respiratory Rate 18 05/31/24 16:16 Blood Pressure 140/80 05/31/24 16:16 Pulse Oximetry 94 L 05/31/24 16:16 Oxygen Delivery Method Room Air 05/31/24 16:16 Medical Decision Making [facility] Narrative Medical decision making narrative: Patient CT scan was normal. Her laboratory testing did not disclose any gross abnormalities or acute abnormalities. Same with her EKG that shows a sinus rhythm rate 67 and a right bundle branch block. There is no ST segment elevation or malignant arrhythmia noted on the EKG. She was under observation here until approximately 1815 hrs. and showed no deterioration or change. I do not see any reason for acute admission at this time she seems to be status quo with a very nonspecific event at the snf. Discharge Plan Discharge Chief Complaint: Neuro Symptoms/Deficit Clinical Impression: Parkinson's disease Patient Disposition: Home, Self-Care Time of Disposition Decision: 18:08 Prescriptions / Home Meds: No Action benzonatate 100 mg capsule 100 mg PO TID clonidine HCl 0.1 mg tablet 0.1 mg PO DAILY docusate sodium 100 mg capsule 100 mg PO DAILY famotidine 20 mg tablet 20 mg PO Q12H fluticasone propionate [24 Hour Allergy Relief] 50 mcg/actuation spray,suspension 1 spray intranasal BID Rx Instructions: administer into each nostril folic acid 0.8 mg capsule 800 mcg PO DAILY loratadine 10 mg tablet 10 mg PO Q24H meloxicam 15 mg tablet 15 mg PO DAILY calcium carbonate-vitamin D3 [Oyster Shell Calcium-Vit D3] 500 mg-5 mcg (200 unit) tablet 1 tab PO DAILY fluticasone propion-salmeterol [Wixela Inhub] 250-50 mcg/dose blister with device 1 inh INHALATION Q12H polyethylene glycol 3350 [Miralax] 17 gram/dose powder 17 g PO DAILY quetiapine 400 mg tablet extended release 24 hr 400 mg PO DAILY Risperdal Consta 25 mg/2 mL suspension,extended rel recon 25 mg IM Q14D topiramate [Topamax] 25 mg tablet 25 mg PO BEDTIME mecobalamin (vitamin B12) 5,000 mcg tablet,chewable 5,000 mcg PO DAILY albuterol sulfate 90 mcg/actuation aerosol powdr breath activated 2 inh inhalation Q6H PRN (Reason: shortness of breath or wheezing) hydrocodone-acetaminophen 5-325 mg tablet 1 tab PO Q6H PRN (Reason: pain) quetiapine 100 mg tablet 100 mg PO BID quetiapine 25 mg tablet 25 mg PO BID Acidophilus Capsule 100 mg PO DAILY cyanocobalamin (vitamin B-12) [Vitamin B-12] 500 mcg tablet 500 mcg PO DAILY fluticasone propion-salmeterol [Advair Diskus] 250-50 mcg/dose blister with device 1 inh inhalation BID famotidine 20 mg tablet 20 mg PO BID polyethylene glycol 3350 [Miralax] 17 gram/dose powder 17 g PO DAILY albuterol sulfate 90 mcg/actuation HFA aerosol inhaler 2 inh inhalation Q6H PRN (Reason: shortness of breath or wheezing) azithromycin [Zithromax Z-Manoj] 250 mg tablet See Rx Instructions .ROUTE .COMPLEX Qty: 6 0RF Rx Instructions: For 250 mg dose pack: take 500 mg today (day 1), then 250 mg for 4 days (days 2-5) amantadine HCl 100 mg tablet 100 mg PO BID benztropine 0.5 mg tablet 0.5 mg PO BID quetiapine [Seroquel] 300 mg tablet 700 mg PO DAILY lithium carbonate 150 mg capsule 150 mg PO BID Print Language: Luxembourgish Additional Instructions: Resume previous care and medications. Close observation tonight Referrals: MORGAN WOOTEN [Primary Care Provider] - 1 week
--- NOTE | 2024-05-31 16:43 | PC.NURSE ---
pt went straight to CT upon arrival by squad for CVA sx
--- NOTE | 2024-05-31 17:07 | PC.NURSE ---
more lethargic, dizzy 1600 shakey fell backwards in bed and started vomiting
--- NOTE | 2024-05-31 17:11 | XR_ITS ---
[address] [address] Patient Name: MARTÍNEZ ALMEIDA MRN: [id number] date: 1955 Sex: F Assigned Patient Location: ER Current Patient Location: ED.MAIN Accession/Order Number: [id number] Exam Date: 05/31/2024 17:30 Report Date: 05/31/2024 18:49 At the request of: TIFFANI GARNER Procedure: XR chest 1V Exam: Radiographs: XR chest 1V Reason for exam: Change condition Comparison: Chest x-ray dated 04/22/2023 XR/XR chest 1V IMPRESSION: Lower neck surgical clips. Right humerus internal fixation. Chest is otherwise unremarkable. Electronically authenticated by: SHABANA KNOX Date: 05/31/2024 18:49
[2024-05-31 17:20] LABS: Basophils Absolute Auto 0.1 10^3/uL (0.0-0.1); Basophils Percent Auto 0.7 % (0.2-2.0); Eosinophils Absolute Auto 0.1 10^3/uL (0.0-0.7); Eosinophils Percent Auto 1.9 % (0.9-7.0); Hematocrit 38.8 % (36.0-48.0); Hemoglobin 12.6 g/dL (12.0-16.0); Immature Granulocytes Abs Auto 0.05 10^3/uL (0.00-0.03); Immature Granulocytes Pct Auto 0.7 % (0.0-0.5); Lymphocytes Absolute Auto 1.7 10^3/uL (1.2-3.8); Lymphocytes Percent Auto 22.8 % (20.5-60.0); Mean Corpuscular HGB Conc 32.5 g/dL (29.9-35.2); Mean Corpuscular Hemoglobin 32.8 pg (26.7-34.0); Mean Platelet Volume 10.5 fL (9.5-13.5); Monocytes Absolute Auto 0.6 10^3/uL (0.3-0.8); Neutrophils Absolute Auto 4.9 10^3/uL (1.4-6.5); Neutrophils Percent Auto 65.9 % (43.0-75.0); Platelet Count 295 10^3/uL (150-450); Red Blood Count 3.84 10^6/uL (4.20-5.40); White Blood Count 7.5 10^3/uL (4.0-11.0)
[2024-05-31 17:37] LABS: Alanine Aminotransferase 26 U/L (14-59); Albumin Level 3.5 g/dL (3.4-5.0); Alkaline Phosphatase 144 U/L (46-116); Anion Gap 13.1; Aspartate Amino Transferase 16 U/L (15-37); BUN Creatinine Ratio 14.8; Bilirubin Total 0.3 mg/dL (0.2-1.0); Calcium 9.9 mg/dL (8.5-10.1); Carbon Dioxide 22.5 mmol/L (21.0-32.0); Chloride 111 mmol/L (98-107); Estimated GFR (African America 42 (>=60 mL/min/1.73m^2); Estimated GFR (Non-African Ame 35 (>=60 mL/min/1.73m^2); Globulin 3.4 g/dL; Glucose 101 mg/dL (74-106); Potassium 3.6 mmol/L (3.5-5.1); Sodium 143 mmol/L (136-145); Total Protein 6.9 g/dL (6.4-8.2)
[2024-05-31 17:38] LABS: Troponin I High Sensitivity 6.5 pg/mL (4.0-51.3)
[2024-05-31 17:39] LABS: Lactate/Lactic Acid 0.8 mmol/L (0.4-2.0)
[2024-05-31 18:52] LABS: Bilirubin Urine NEGATIVE (NEGATIVE); Blood Urine NEGATIVE (NEGATIVE); Clarity Urine CLEAR (CLEAR); Color Urine LT. YELLOW (YELLOW); Glucose Urine UA NEGATIVE (NEGATIVE); Ketones Urine NEGATIVE (NEGATIVE); Leukocyte Esterase Urine NEGATIVE (NEGATIVE); Nitrite Urine NEGATIVE (NEGATIVE); Protein Urine NEGATIVE (NEG/TRACE); Specific Gravity Urine <=1.005 (1.005-1.025); Urine Microscopic Indicated NO; Urobilinogen Urine 0.2 EU/dL (0.2-1.0); pH Urine 6.5 (5.0-9.0)
== END 2024-05-31 20:26 | disposition home or self-care (01) ==
PROVIDERS: Emergency Provider Emergency Medicine Emergency Medical Services; PCP Family Medicine
DX: G20.A1 Parkinson's disease without dyskinesia, without mention of fluctuations (principal); F17.200 Nicotine dependence, unspecified, uncomplicated
CPT/HCPCS: 36415; 70450; 71045; 80053; 81003; 83605; 84484; 85025; 93005; 99285

== ENCOUNTER 2024-07-03 09:26 | Outpatient (OUT) | payer MEDICARE, MEDICAID, SELFPAY ==
--- NOTE | 2024-07-03 09:30 | US_ITS ---
Patient Name: MARTÍNEZ ALMEIDA MR#: [id number] : 1955 Exam Date: 07/03/2024 Ordering Doctor: Yen Acevedo RADIOLOGY REPORT PROCEDURE: MAMMOGRAM RIGHT DIAGNOSTIC DIGITAL FOLLOW UP, 07/03/2024, 09:29 US BREAST RT LIMITED, 07/03/2024, 09:53 COMPARISON: MM TOMOSYNTHESIS SCREENING BI, 05/28/2023. MM SCREENING MAMMO BI, 05/29/2024. INDICATIONS: Other Inconclusive Findings On Breast Imaging Calculator Name [facility] Breast Cancer Risk Assessment Tool 5 Year Breast Cancer Risk 3.70% Lifetime Breast Cancer Risk 12.30% Personal Breast Cancer No Personal Ovarian Cancer No Treatments None Family Cancers Mother with breast cancer at age ~60. LOCATION: [facility] BREAST COMPOSITION: The breasts are heterogeneously dense,which may obscure small masses. FINDINGS: DIAGNOSTIC CATEGORY 2--BENIGN FINDING. NO CHANGE FROM COMPARISON. Four spot magnification views of the right breast, limited as the patient has great difficulty standing. Tubular densities persist on the spot compression views to the nipple. Ultrasound demonstrates multiple dilated ducts measuring to 6 mm however no intraductal lesions are observed. No debris. No further evaluation is required the patient was asked to return to yearly screening exam RECOMMENDATIONS: ROUTINE MAMMOGRAM AND CLINICAL EVALUATION IN 12 MONTHS. PLEASE NOTE: A NORMAL MAMMOGRAM DOES NOT EXCLUDE THE POSSIBILITY OF BREAST CANCER. A CLINICALLY SUSPICIOUS PALPABLE LUMP SHOULD BE BIOPSIED. Dictated by: Emery Mathis MD on 07/03/2024 at 10:16 Approved by: Emery Mathis MD on 07/03/2024 at 10:19
== END 2024-07-03 09:27 | disposition home or self-care (01) ==
LOC: MAMMO 09:26
PROVIDERS: PCP Nurse Practitioner Family; Visit Provider Nurse Practitioner Family
DX: R92.8 Other abnormal and inconclusive findings on diagnostic imaging of breast (principal); Z80.3 Family history of malignant neoplasm of breast
CPT/HCPCS: 76642; 77065

== ENCOUNTER 2025-02-08 11:55 | Outpatient (OUT) | payer MEDICAID, SELFPAY ==
--- OUTSIDE RECORDS SUMMARY | 2013-11-18 01:19 | XMS_ITS | Encounter Summary ---
Author Organization [facility] Address [address] [facility], [address] [place] [address] Care Team Providers Care Claims Specialist Name Role Phone DouglassNoe arcos Primary Care Provider [phone] Encounter Details Date Type Department Care Team (Late st Contact Info) Description 11/18/2013 1:19 AM EDT Hospital Encounter [facility] [address] [place], [place] [id number] Bety Munoz MD [address] [place], [place] [id number] Social History Tobacco Use Types Packs/Day Years Used Date Smoking Tobacco: Former Cigarettes 0.3 40 Smokeless Tobacco: Never Comments: I smoke about 3-6 cig/day - 04-18-20. Alcohol Use Standard Drinks/Week Comments No 0 (1 standard drink = 0.6 oz pur e alcohol) PHQ-2 Answer Date Recorded PHQ-2 Score 0 09/03/2018 Interpersonal Safety Domain Source: IP Abuse Scr eening Answer Date Recorded Physical abuse Denies 04/23/2024 Verbal abuse Denies 04/23/2024 Emotional abuse Denies 04/23/2024 Financial abuse Denies 04/23/2024 Sexual abuse Denies 04/23/2024 Comments No Sex and Gender Information Value Date Recorded Sex Assigned at Not on file Legal Sex Female 8:57 PM EST Gender Identity Not on file Sexual Orientation Not on file COVID-19 Exposure Response Date Recorded In the last month, have you been in contact with someone who was confirmed or suspected to have Coronavirus / COVID-19? No / Unsure 07/19/2021 1:52 PM EST documented as of this encounter Plan of Treatment Upcoming Encounters Date Type Department Care Team (Late st Contact Info) Description 03/08/2025 2:30 PM EDT Office Visit [facility] [address] [facility] [address], [address] [place] [address] Paramjit Olvera MD [address] [facility] [place] [address] 3 month follow up documented as of this encounter Goals Goal Patient Goal Type Associated Problems Recent Progress Patient-Stated? Author Quit smoking. Lifestyle No Blanca Sheridan documented as of this encounter Procedures Procedure Name Priority Date/Time Associated Diagnosis Comments BUN Routine 11/18/2013 8:11 AM EDT GLUCOSE, RANDOM Routine 11/18/2013 8:11 AM EDT CREATININE Routine 11/18/2013 8:11 AM EDT LITHIUM LEVEL Routine 11/18/2013 8:11 AM EDT LIPID PANEL Routine 11/18/2013 8:11 AM EDT documented in this encounter Results * Lipid panel (11/18/2013 8:11 AM EDT) Cholesterol 173 <200 mg/dL 11/18/2013 9:24 AM EDT [facility] Comment: Cholesterol Guidelines: <200 Desirable 200-240 Borderline >240 Undesirable HDL 57 >40 mg/dL 11/18/2013 9:24 AM EDT [facility] Comment: HDL Guidelines: <40 Undesirable 40-59 Borderline >59 Desirable LDL Cholesterol 87 0 - 130 mg/dL 11/18/2013 9:24 AM EDT [facility] Comment: LDL Guidelines: <100 Desirable 100-129 Near to/above Desirable 130-159 Borderline >159 Undesirable Direct (measured) LDL and calculated LDL are not interchangeable tests. Chol/HDL Ratio 3.0 <5 11/18/2013 9:24 AM EDT [facility] Triglycerides 144 <150 mg/dL 11/18/2013 9:24 AM EDT [facility] Comment: Triglyceride Guidelines: <150 Desirable 150-199 Borderline 200-499 High >499 Very high Based on AHA Guidelines for fasting triglyceride, March 2012. VLDL 29 1 - 30 mg/dL 11/18/2013 9:24 AM EDT [facility] Comment: Performed at [address] [place] [address] ([phone] 11/18/2013 8:11 AM EDT 11/18/2013 8:12 AM EDT Bety Munoz MD CHEMISTRY ORDERABLES Final Res ult Performing Organization Address [facility]/ZIP Co de Phone Number [facility] [address] [place] [address] [facility] * [place] level (11/18/2013 8:11 AM EDT) [place] Lvl 0.8 0.6 - 1.2 mmol/L 11/18/2013 9:36 AM EDT [facility] [place] Dose Amount 0730 11/18/2013 8:18 AM EDT [facility] Roland Date Last Dose [phone] 11/18/2013 8:18 AM EDT [facility] Roland Dose Time 300 11/18/2013 8:18 AM EDT [facility] Comment: Performed at [address] [place] [address] ([phone] 11/18/2013 8:11 AM EDT 11/18/2013 8:12 AM EDT us Bety Munoz MD CHEMISTRY ORDERABLES Edited Re sult - Final Performing Organization Address [facility]/ZIP Co de Phone Number [facility] [address] [place], [place] [id number] [phone] [facility] * (ABNORMAL) Glucose, random (11/18/2013 8:11 AM EDT) Glucose 101(H) 70 - 99 mg/dL 11/18/2013 9:24 AM EDT [facility] Comment: Performed at [address] [place] [address] ([phone] 11/18/2013 8:11 AM EDT 11/18/2013 8:12 AM EDT us Bety Munoz MD CHEMISTRY ORDERABLES Final Res ult Performing Organization Address City/[facility]/ZIP Co de Phone Number [facility] [address] [place] [id number] [phone] [facility] * Creatinine, serum (11/18/2013 8:11 AM EDT) Creatinine 0.84 0.50 - 0.90 mg/dL 11/18/2013 9:24 AM EDT [facility] GFR Non- >60 >60 mL/min 11/18/2013 9:24 AM EDT [facility] GFR >60 >60 mL/min 11/18/2013 9:24 AM EDT [facility] GFR Comment 11/18/2013 9:24 AM EDT [facility] Comment: Average GFR for 50-59 years old: 93 mL/min/1.73sq m Chronic Kidney Disease: <60 mL/min/1.73sq m Kidney failure: <15 mL/min/1.73sq m GFR Staging 11/18/2013 9:24 AM EDT [facility] Comment: Stage 1: Some kidney damage normal GFR Stage 2: Mild kidney damage GFR 60-89 Stage 3: Moderate kidney damage GFR 30-59 Stage 4: Severe kidney damage GFR 15-29 Stage 5: Severe kidney damage GFR <15 ESRD - chronic treatment by dialysis or transplant Performed at [address] [place] [address] ([phone] 11/18/2013 8:11 AM EDT 11/18/2013 8:12 AM EDT us Bety Munoz MD CHEMISTRY ORDERABLES Final Res ult Performing Organization Address City/[facility]/ZIP Co de Phone Number [facility] [address] [place] [address] [phone] [facility] * (ABNORMAL) BUN (11/18/2013 8:11 AM EDT) BUN 21(H) 6 - 20 mg/dL 11/18/2013 9:24 AM EDT [facility] Comment: Performed at [address] [place] [address] ([phone] 11/18/2013 8:11 AM EDT 11/18/2013 8:12 AM EDT us Bety Munoz MD CHEMISTRY ORDERABLES Final Res ult [facility] [address] [place], [place] [id number] [phone] [facility] documented in this encounter Visit Diagnoses Not on filedocumented in this encounter Additional Health Concerns Infection Onset Date Last Indicated Resolved Time ESBL (Extended Spectrum Beta Lactamase) Comment:03/22/13 - urine - e.coli 03/24/2013 03/24/2013 documented as of this encounter Care Teams Claims Specialist Relationship Specialty Start Date End Date Noe De Leon DO [address] [place] [address] PCP - General 08/01/13 04/11/14 documented as of this encounter
--- OUTSIDE RECORDS SUMMARY | 2014-04-16 03:20 | XMS_ITS | Encounter Summary ---
Author Organization [facility] Address [address], [address] [place] [address] Care Team Providers Care Box Hinge And Lock Attacher Name Role Phone Alisa Robertson MD Primary Care Provider [phone] Encounter Details Date Type Department Care Team (Latest Contact Info) Description 04/16/2014 2:20 AM EST Hospital Encounter [facility] [address] [place] [address] Alisa Robertson MD [address] [place] [address] Overweight (BMI 25.0-29.9) Social History Tobacco [...] Description 03/08/2025 2:30 PM EDT Office Visit [facility] [address] [facility] [address] - [address] Floor, [address] [place] [address] Paramjit Olvera MD [address] [facility] [place], [place] [phone] 3 month follow up documented as of [...] 04/16/2014 10:40 AM EST [facility] Specific [place], UA <1.005(L) 1.010 - 1.020 04/16/2014 10:40 AM EST [facility] Urine Hgb NEGATIVE NEG 04/16/2014 10:40 AM EST [facility] pH, UA 7.0 5.0 - 9.0 04/16/2014 10:40 AM EST [facility] Protein, UA NEGATIVE NEG 04/16/2014 10:40 AM EST [facility] Urobilinogen, Urine Normal NORM 04/16/2014 10:40 AM EST [facility] Nitrite, Urine NEGATIVE NEG 04/16/2014 10:40 AM EST [facility] Leukocyte Esterase, Urine NEGATIVE NEG 04/16/2014 10:40 AM EST [facility] Comment: Performed at [address] [place] [id number] ([phone] Urinalysis Comments NOT REPORTED [facility] 04/16/2014 9:1 7 AM EST 04/16/2014 9:18 AM EST Alisa Robertson MD URINE ORDERABLES Final Result Performing Organization Address [facility]/ZIP Co de Phone Number [address] [phone] [facility] * T4, free (04/16/2014 9:17 AM EST) Thyroxine, Free 1.13 0.93 - 1.70 ng/dL 04/16/2014 10:46 AM EST [facility] Comment: Performed at [address] [place] [address] ([phone] BLOOD SPECIMEN / Unknown 04/16/2014 9:17 AM EST 04/16/2014 9:18 AM EST us Alsia Robertson MD CHEMISTRY ORDERABLES Final Re sult Performing Organization Address [facility]/ZIP Co de Phone Number [facility] [address] [place] [address] [facility] * TSH without Reflex (04/16/2014 9:17 AM EST) TSH 1.63 0.30 - 5.00 mIU/L 04/16/2014 10:46 AM EST [facility] Comment: Performed at [address] [place] [address] ([phone] BLOOD SPECIMEN / Unknown 04/16/2014 9:17 AM EST 04/16/2014 9:18 AM EST Alisa Robertson MD CHEMISTRY ORDERABLES Final Re sult [facility] [address] [phone] [facility] documented in this encounter Visit Diagnoses Diagnosis Overweight (BMI 25.0-29.9) Overweight documented in this encounter Additional Health Concerns Infection Onset Date Last Indicated Resolved Time ESBL (Extended Spectrum Beta Lactamase) Comment:03/22/13 - urine - e.coli 03/24/2013 03/24/2013 documented as of this encounter Care Teams Box Hinge And Lock Attacher Relationship Specialty Start Date End Date Alisa Robertson MD PCP - General 04/12/14 08/08/14 documented as of this encounter
--- OUTSIDE RECORDS SUMMARY | 2014-07-30 03:59 | XMS_ITS | Encounter Summary ---
Author Organization [facility] Address [address] [facility] [place] [address] Care Team Providers Care Automotive Service Manager Name Role Phone Alisa Robertson MD Primary Care Provider [phone] Encounter Details Date Type Department Care Team (Late st Contact Info) Description 07/30/2014 2:59 AM EST Hospital Encounter [facility] Laboratory [address] [phone] Sony Holman MD [address] [phone] Social History Tobacco Use Types Packs/Day Years [...] Description 03/08/2025 2:30 PM EDT Office Visit [facility] [address] [facility] [address] - Ground Floor, [address] [place] [address] Paramjit Olvera MD [address] [facility] [place], [place] [address] 3 month follow up documented as of [...] TSH without Reflex (07/30/2014 8:18 AM EST) Pathologist [facility] TSH 1.16 0.30 - 5.00 mIU/L 07/30/2014 9:47 AM EST [facility] Comment: Performed at [address] [place] [address] ([phone] 07/30/2014 8:18 AM EST 07/30/2014 8:19 AM EST us Sony Holman MD CHEMISTRY ORDERABLES Gaby l Result [address] [address], [facility] [phone] [facility] * Thyroid Antibodies (07/30/2014 8:18 AM EST) Thyroglobulin Ab <20.0 0.0 - 40.0 IU/mL 08/02/2014 1:58 PM EST [facility] Thyroid Peroxidase (Tpo) Ab 34.4 0.0 - 35.0 IU/mL 08/02/2014 1:58 PM EST [facility] Comment:Performed at [address] [id number] ([phone] 07/30/2014 8:18 AM EST 07/30/2014 8:19 AM EST Sony Holman MD IMMUNOLOGY ORDERABLES Fin al Result Performing Organization Address [facility]/ZIP Co de Phone Number [facility] [address] [place] [address] [facility] * T4, free (07/30/2014 8:18 AM EST) [facility] Thyroxine, Free 1.19 0.93 - 1.70 ng/dL 07/30/2014 9:47 AM EST [facility] Comment: Performed at [address] [place] [address] ([phone] 07/30/2014 8:18 AM EST 07/30/2014 8:19 AM EST Sony Holman MD CHEMISTRY ORDERABLES Gaby l Result Performing Organization Address [facility]/ZIP Co de Phone Number [facility] [address] [place] [address] [facility] documented in this encounter Visit Diagnoses Not on filedocumented in this encounter Additional Health Concerns Infection Onset Date Last Indicated Resolved Time ESBL (Extended Spectrum Beta Lactamase) Comment:03/22/13 - urine - e.coli 03/24/2013 03/24/2013 documented as of this encounter Care Teams Automotive Service Manager Relationship Specialty Start Date End Date Alisa Robertson MD PCP - General 04/12/14 08/08/14 documented as of this encounter
--- OUTSIDE RECORDS SUMMARY | 2015-03-22 01:20 | XMS_ITS | Encounter Summary ---
Author Organization [facility] Address [address] [facility], [address] [place] [address] Care Team Providers Care Classroom Paraprofessional Name Role Phone [place] ar[place] Primary Care Provider [phone] Encounter Details Date Type Department Care Team (Late st Contact Info) Description 03/22/2015 1:20 AM EDT Hospital Encounter [facility] [address] [place], [place] [phone] Bety Munoz MD [address] [place], [place] [phone] Social History Tobacco Use Types Packs/Day Years [...] 2:30 PM EDT [facility] [facility] [address] - Ground Floor, [address] [place] [address] Paramjit Olvera MD [address] [facility] [place], [place] [phone] 3 month follow up documented as of this encounter Goals Goal Patient Goal Type Associated Problems Recent Progress Patient-Stated? Author Quit smoking. Lifestyle No Blanca Sheridan documented as of this encounter Procedures Procedure Name Priority Date/Time Associated Diagnosis Comments BUN Routine 03/22/2015 8:51 AM EDT TSH Routine 03/22/2015 8:51 AM EDT T4 Routine 03/22/2015 8:51 AM EDT CREATININE Routine 03/22/2015 8:51 AM EDT CALCIUM Routine 03/22/2015 8:51 AM EDT LITHIUM LEVEL Routine 03/22/2015 8:51 AM EDT ELECTROLYTE PANEL Routine 03/22/2015 8:5 1 AM EDT documented in this encounter Results * TSH without Reflex (03/22/2015 8:51 AM EDT) TSH 0.93 0.30 - 5.00 mIU/L 03/22/2015 10:45 AM EDT [facility] Comment: Performed at [address] [place] [address] ([phone] 03/22/2015 8:51 AM EDT 03/22/2015 8:52 AM EDT us Bety Munoz MD CHEMISTRY ORDERABLES Final Res ult [facility] [address] [place] [address] [facility] * T4 (03/22/2015 8:51 AM EDT) T4, Total 7.7 4.5 - 12.0 ug/dL 03/22/2015 10:45 AM EDT [facility] Comment: Performed at [address] [place] [address] ([phone] 03/22/2015 8:51 AM EDT 03/22/2015 8:52 AM EDT us Bety Munoz MD CHEMISTRY ORDERABLES Final Res ult Performing Organization Address City/[facility]/ZIP Co de Phone Number [facility] [address] [place] [address] [facility] * Electrolyte Panel (03/22/2015 8:51 AM EDT) Sodium 144 135 - 144 mmol/L 03/22/2015 10:45 AM EDT [facility] Potassium 4.4 3.7 - 5.3 mmol/L 03/22/2015 10:45 AM EDT [facility] Chloride 106 98 - 107 mmol/L 03/22/2015 10:45 AM EDT [facility] CO2 26 20 - 31 mmol/L 03/22/2015 10:45 AM EDT [facility] Anion Gap 12 9 - 17 mmol/L 03/22/2015 10:45 AM EDT [facility] Comment: Performed at [address] [place] [address] ([phone] 03/22/2015 8:51 AM EDT 03/22/2015 8:52 AM EDT us Bety Munoz MD CHEMISTRY ORDERABLES Final Res ult Performing Organization Address City/[facility]/ZIP Co de Phone Number [facility] [address] [place] [address] [facility] * [place] level (03/22/2015 8:51 AM EDT) [place] Lvl 0.8 0.6 - 1.2 mmol/L 03/22/2015 10:36 AM EDT [facility] [place] Dose Amount HIDE 03/22/2015 8:54 AM EDT [facility] [place] Date Last Dose HIDE 03/22/2015 8:54 AM EDT [facility] [place] Dose Time HIDE 03/22/2015 8:54 AM EDT [facility] Comment: Performed at [address] [place] [address] ([phone] 03/22/2015 8:51 AM EDT 03/22/2015 8:52 AM EDT us Bety Munoz MD CHEMISTRY ORDERABLES Final Res ult [place] [id number] [phone] [facility] * Creatinine, serum (03/22/2015 8:51 AM EDT) Creatinine 0.90 0.50 - 0.90 mg/dL 03/22/2015 10:45 AM EDT [facility] GFR Non- >60 >60 mL/min 03/22/2015 10:45 AM EDT [facility] GFR >60 >60 mL/min 03/22/2015 10:45 AM EDT [facility] GFR Comment 03/22/2015 10:45 AM EDT [facility] Comment: Average GFR for 50-59 years old: 93 mL/min/1.73sq m Chronic Kidney Disease: <60 mL/min/1.73sq m Kidney failure: <15 mL/min/1.73sq m GFR Staging 03/22/2015 10:45 AM EDT [facility] Comment: Stage 1: Some kidney damage normal GFR Stage 2: Mild kidney damage GFR 60-89 Stage 3: Moderate kidney damage GFR 30-59 Stage 4: Severe kidney damage GFR 15-29 Stage 5: Severe kidney damage GFR <15 ESRD - chronic treatment by dialysis or transplant Performed at [address] [place] [id number] ([phone] 03/22/2015 8:51 AM EDT 03/22/2015 8:52 AM EDT us Bety Munoz MD CHEMISTRY ORDERABLES Final Res ult Performing Organization Address [facility]/ZIP Co de Phone Number [facility] [address] [place] [address] [facility] * Calcium (03/22/2015 8:51 AM EDT) Calcium 10.4 8.6 - 10.4 mg/dL 03/22/2015 10:45 AM EDT [facility] Comment: Performed at [address] [place] [id number] ([phone] 03/22/2015 8:51 AM EDT 03/22/2015 8:52 AM EDT us Bety Munoz MD CHEMISTRY ORDERABLES Final Res ult Performing Organization Address [facility]/ZIP Co de Phone Number [facility] [address] [place] [address] [facility] * BUN (03/22/2015 8:51 AM EDT) BUN 16 6 - 20 mg/dL 03/22/2015 10:45 AM EDT [facility] Comment: Performed at [address] [place] [id number] ([phone] 03/22/2015 8:51 AM EDT 03/22/2015 8:52 AM EDT us Bety Munoz MD CHEMISTRY ORDERABLES Final Res ult Performing Organization Address City/[facility]/ZIP Co de Phone Number [facility] [address] [place] [address] [facility] documented in this encounter Visit Diagnoses Not on filedocumented in this encounter Additional Health Concerns Infection Onset Date Last Indicated Resolved Time ESBL (Extended Spectrum Beta Lactamase) Comment:03/22/13 - urine - e.coli 03/24/2013 03/24/2013 documented as of this encounter Care Teams Classroom Paraprofessional Relationship Specialty Start Date End Date Noe De Leon DO PCP - General 11/25/14 06/25/15 documented as of this encounter
--- OUTSIDE RECORDS SUMMARY | 2015-11-15 08:10 | XMS_ITS | Encounter Summary ---
Author Organization [facility] Address [address] [facility], [address] [place] [address] Care Team Providers Care County Agent Name Role Phone DendronNoe arcos Primary Care Provider [phone] Encounter Details Date Type Department Care Team (Late st Contact Info) Description 11/15/2015 8:10 AM EDT Hospital Encounter [facility] [address] [place], [place] [phone] Bety Munoz MD [address] [place], [place] [phone] Social History Tobacco Use Types Packs/Day Years [...] Description 03/08/2025 2:30 PM EDT Office Visit [facility] [place] [address] [facility] [address] - [address] Floor, [address] [place] [address] Paramjit Olvera MD [address] [facility] [place] [address] 3 month follow up documented as of this encounter Goals Goal Patient Goal Type Associated Problems Recent Progress Patient-Stated? Author Quit smoking. Lifestyle No Blanca Sheridan documented as of this encounter Visit Diagnoses Not on filedocumented in this encounter Additional Health Concerns Infection Onset Date Last Indicated Resolved Time ESBL (Extended Spectrum Beta Lactamase) Comment:03/22/13 - urine - e.coli 03/24/2013 03/24/2013 documented as of this encounter Care Teams County Agent Relationship Specialty Start Date End Date Noe De Leon DO PCP - General 07/09/15 02/22/16 documented as of this encounter
--- NOTE | 2025-02-08 | XR_ITS ---
The [place] [id number] Patient Name: MARTÍNEZ ALMEIDA MRN: [id number] date: 1955 Sex: F Assigned Patient Location: [facility] Current Patient Location: [facility] Accession/Order Number: [id number] Exam Date: 02/08/2025 12:10 Report Date: 02/08/2025 12:34 At the request of: MARCO CAZARES DO Procedure: XR shoulder RT min 2V RIGHT SHOULDER - 4 views CLINICAL HISTORY: Follow-up fracture of the proximal humerus. Prior internal fixation COMPARISON: 09/06/2022 and chest x-ray 04/22/2023 AP, Y, axillary and Grashey views were obtained. There is a lateral plate and multiple screws along the proximal lateral humerus. There is a persistent lucent defect in the vicinity of the greater tuberosity where there is an additional screw that does not cross the plate. There is no new fracture or dislocation. There is narrowing of the glenohumeral joint space. There is superior subluxation the humeral head with narrowing of the acromiohumeral interval which may indicate rotator cuff disease. There are no significant soft tissue abnormalities. XR/XR shoulder RT min 2V IMPRESSION: POSTOPERATIVE AND DEGENERATIVE CHANGES ALONG WITH POSSIBLE ROTATOR CUFF DISEASE. Impression dictated by: Lu Gonzales M.D. 02/08/2025 12:34 PM Dictation Location: [place] [address] Electronically authenticated by: [id number] Y Date: 02/08/2025 12:34
--- OUTSIDE RECORDS SUMMARY | 2025-02-08 11:57 | XMS_ITS | Encounter Summary ---
Author Organization [facility] Address [address] [facility], [address] [place] [address] Care Team Providers Care Silk Screen Repairer Name Role Phone Ruma Moe Schilling DO Primary Care Provider + [phone] Reason for Visit * Reason Comments Other Encounter Details Date Type Department Care Team (Late Contact Info) Description 08/11/2014 Refill [facility] ([place]) [address] [place] [phone] Misha Seals W, RETAIL AIDE - LEAD JAVA DEVELOPER ARCHITECT [address] [place] [address] Other Social History Tobacco Use Types Packs/Day Years Used Date Smoking Tobacco: Former Cigarettes Alcohol Use Standard Drinks/Week Comments No 0 (1 standard drink = 0.6 oz pur e alcohol) Comments No Sex and Gender Information Value Date Recorded Sex Assigned at Not on file Legal Sex Female 8:57 PM EST Gender Identity Not on file Sexual Orientation Not on file documented as of this encounter Plan of Treatment Upcoming Encounters Date Type Department Care Team (Late st Contact Info) Description 03/08/2025 2:30 PM EDT Office Visit [facility] Neuro [facility] [address] [facility] [address], [address] [place] [address] Paramjit Olvera MD [address] [facility] [place] [address] 3 month follow up documented as of [...] documented as of this encounter Care Teams Silk Screen Repairer Relationship Specialty Start Date End Date Moe Hendrix DO [address] [place] [address] PCP - General Family Medicine 12/17/24 documented as of this encounter
--- OUTSIDE RECORDS SUMMARY | 2025-02-08 11:57 | XMS_ITS | Encounter Summary ---
Author Organization [facility] Address [address] [facility], [address] [place] [address] Care Team Providers Care Physical Science Teacher Name Role Phone Moe Hendrix Shakir DUMONT Primary Care Provider + [phone] Reason for Visit * Reason Comments Other Encounter Details Date Type Department Care Team (Late Contact Info) Description 07/23/2014 Refill [facility] ([address] [phone] Alisa Robertson MD [address] [place] [address] Other Social History Tobacco Use Types Packs/Day [...] Encounters Date Type Department Care Team (Late Contact Info) Description 03/08/2025 2:30 PM EDT Office Visit [facility] [address] [facility] [address], [address] [place] [address] Paramjit Olvera MD [address] [facility] [address] [place] [address] 3 month follow up documented as of this encounter Visit Diagnoses Not on filedocumented in this encounter Additional Health Concerns Infection Onset Date Last Indicated Resolved Time ESBL (Extended Spectrum Beta Lactamase) Comment:03/22/13 - urine - e.coli 03/24/2013 03/24/2013 documented as of this encounter Care Teams Physical Science Teacher Relationship Specialty Start Date End Date Moe Hendrix DO [address] [place] [address] PCP - General Family Medicine 12/17/24 documented as of this encounter
--- OUTSIDE RECORDS SUMMARY | 2025-02-08 11:58 | XMS_ITS | Encounter Summary ---
Author Organization [facility] Address [address] [facility], [address] [place] [address] Care Team Providers Care Audio Visual Production Specialist Name Role Phone LilianMoe mullen Shakir DUMONT Primary Care Provider + [phone] Reason for Visit * Reason Comments Medication Refill Encounter Details Date Type Department Care Team (Late Contact Info) Description 09/09/2019 Refill [facility] Part of [address] [place] [phone] Bhupinder Iniguez MD [address] [place] [address] [address] [place] [address] Medication Refill Social History Tobacco Use Types Packs/Day Years Used Date Smoking Tobacco: Every Day Cigarettes 0.3 40 Smokeless Tobacco: Never Alcohol Use Standard Drinks/Week Comments No 0 (1 standard drink = 0.6 oz pur e alcohol) PHQ-2 Answer Date Recorded PHQ-2 Score 0 09/03/2018 Comments No Sex and Gender Information Value Date Recorded Sex Assigned at Not on file Legal Sex Female 8:57 PM EST Gender Identity Not on file Sexual Orientation Not on file documented as of this encounter Plan of Treatment Upcoming Encounters Date Type Department Care Team (Late st Contact Info) Description 03/08/2025 2:30 PM EDT Office Visit [facility] [address] [facility] [address], [address] [place] [address] Paramjit Olvera MD [address] [place] [address] [address] [place] [address] 3 month follow up documented as of [...] documented as of this encounter Care Teams Audio Visual Production Specialist Relationship Specialty Start Date End Date Moe Hendrix DO [address] [place] [address] PCP - General Family Medicine 12/17/24 documented as of this encounter
--- OUTSIDE RECORDS SUMMARY | 2025-02-08 11:58 | XMS_ITS | Encounter Summary ---
Author Organization [facility] Address [address] [facility], [address] [place] [address] Care Team Providers Care Oncology Radiation Physician Name Role Phone RumaMoe Shakir DUMONT Primary Care Provider + [phone] Reason for Visit * Reason Comments Medication Refill Encounter Details Date Type Department Care Team (Late st Contact Info) Description 02/16/2015 Refill [facility] ([place]) [address] [place] [phone] Misha Seals W, DRY LUMBER GRADER - CERTIFIED MEETING PROFESSIONAL [address] [place] [address] Medication Refill Social History Tobacco Use Types Packs/Day Years Used Date Smoking Tobacco: Every Day Cigarettes 0.5 40 Alcohol Use Standard Drinks/Week Comments No 0 [...] Description 03/08/2025 2:30 PM EDT Office Visit [facility] [address] [facility] [address], [address] [place] [address] Paramjit Olvera MD [address] [facility] [place] [address] 3 month follow up documented [...] documented as of this encounter Care Teams Oncology Radiation Physician Relationship Specialty Start Date End Date Moe Hendrix DO [address] [place] [address] PCP - General Family Medicine 12/17/24 documented as of this encounter
--- OUTSIDE RECORDS SUMMARY | 2025-02-08 11:58 | XMS_ITS | Encounter Summary ---
Author Organization [facility] Address [address] [facility], [address] [place] [address] Care Team Providers Care Labor Delivery Specialist Name Role Phone Moe Hendrix DO Primary Care Provider + [phone] Reason for Visit * Reason Comments Other Encounter Details Date Type Department Care Team (Late Contact Info) Description 03/11/2014 Refill [facility] ([place]) [address] [place] [phone] Misha Seals W, MEAT MARKET MANAGER - SEASONER HAND [address] [place] [address] Other Social History Tobacco Use [...] Description 03/08/2025 2:30 PM EDT Office Visit [facility] [address] [facility] [address], [address] [place] [address] Paramjit Olvera MD [address] [facility] [place] [address] 3 month follow up documented as of this encounter Visit Diagnoses Not on filedocumented in this encounter Additional Health Concerns Infection Onset Date Last Indicated Resolved Time ESBL (Extended Spectrum Beta Lactamase) Comment:03/22/13 - urine - e.coli 03/24/2013 03/24/2013 documented as of this encounter Care Teams Labor Delivery Specialist Relationship Specialty Start Date End Date Moe Hendrix DO [address] [facility] [place] [address] PCP - General Family Medicine 12/17/24 documented as of this encounter
--- OUTSIDE RECORDS SUMMARY | 2025-02-08 11:58 | XMS_ITS | Encounter Summary ---
Author Organization [facility] Address [address] [facility], [address] [place] [address] Care Team Providers Care Electronic Data Interchange Specialist Name Role Phone Moe Hendrix Primary Care Provider [phone] Encounter Details Date Type Department Care Team (Late st Contact Info) Description 06/11/2014 Telephone [facility] ([place]) [address] [place] [phone] Alisa Robertson MD [address] [place] [phone] Social History Tobacco Use Types Packs/Day Years [...] Description 03/08/2025 2:30 PM EDT Office Visit [facility] [address] [facility] [address], [address] [place] [address] Paramjit Olvera MD [address] [facility] [place] [address] 3 month follow up documented as of this encounter Visit Diagnoses Not on filedocumented in this encounter Additional Health Concerns Infection Onset Date Last Indicated Resolved Time ESBL (Extended Spectrum Beta Lactamase) Comment:03/22/13 - urine - e.coli 03/24/2013 03/24/2013 documented as of this encounter Care Teams Electronic Data Interchange Specialist Relationship Specialty Start Date End Date Moe Hendrix DO [address] [place] [address] PCP - General Family Medicine 12/17/24 documented as of this encounter
--- OUTSIDE RECORDS SUMMARY | 2025-02-08 11:58 | XMS_ITS | Clinical Summary ---
Author Organization [facility] Address [address], [address] [place] [address] Care Team Providers Care Fabric Sourcer Name Role Phone LilianchayoMoe chaidez Shakir DUMONT Primary Care Provider Allergies Active Allergy Reactions Criticality Noted Date Comments Aluminum-Containing Compounds 05/24/2020 Amphetamines 03/22/2013 Aspirin 03/22/2013 Sulfamethoxazole-Trimeth oprim 03/22/2013 Barbiturates Other (See Comments) 10/07/2013 Addiction issue Codeine 03/22/2013 Fluoxetine 12/26/2017 Meperidine 12/26/2017 Ibuprofen 12/26/2017 Penicillins 03/22/2013 Prednisone 01/09/2015 Fluoxetine Hcl 11/30/2013 Sulfa Antibiotics 03/22/2013 Medications lithium 300 MG capsule Take 1 capsule by mouth 150 mg. In am and 300 mg at bed. Active risperiDONE microspheres (RISPERDAL CONSTA) 37.5 MG injection Inject 2 mLs into the muscle every 14 days Active cloNIDine (CATAPRES) 0.1 MG tablet Take 1 tablet by mouth daily Active mometasone-formot johana (DULERA) 200-5 MCG/ACT inhaler Inhale 2 puffs into the lungs in the morning and 2 puffs in the evening. Active Digestive Enzymes (ACIDOLL) CAPS Take by mouth Twice a Week Active Lactobacillus (ACIDOPHILUS PROBIOTIC PO) Take by mouth 2 times daily Active BROMPHENIRAMINE-P SEUDOEPH PO Take by mouth Take 10 ml every 6 hours PRN. Active acetaminophen (TYLENOL) 650 MG extended release tablet Take 1 tablet by mouth every 12 hours as needed for Pain Active QUEtiapine (SEROQUEL XR) 400 MG extended release tablet Take 600 mg by mouth nightly Active Loratadine (CLARITIN PO) Take by mouth daily Active folic acid (FOLVITE) 800 MCG tablet Active albuterol sulfate HFA (PROVENTIL;VENTOL IN;PROAIR) 108 (90 Base) MCG/ACT inhaler 1 puff as needed Active amantadine (SYMMETREL) 100 MG capsule Active benztropine (COGENTIN) 0.5 MG tablet 1 tablet at bedtime Active docusate sodium (COLACE) 100 MG capsule Active famotidine (PEPCID) 20 MG tablet 1 tablet at bedtime as needed Active polyethylene glycol (GLYCOLAX) 17 g packet Active risperiDONE (RISPERDAL) 0.5 MG tablet Active meloxicam (MOBIC) 15 MG tablet 3 Active WIXELA INHUB 250-50 MCG/ACT AEPB diskus inhaler 4 Active levothyroxine (SYNTHROID) 112 MCG tablet Take 1 tablet by mouth every morning (before breakfast) 4 11/10/19 26 Active OLANZapine (ZYPREXA) 15 MG tablet 5 Active OLANZapine (ZYPREXA) 5 MG tablet 5 Active QUEtiapine (SEROQUEL) 25 MG tablet 1 tablet 3 times daily Half a tablet TID 5 Active topiramate (TOPAMAX) 25 MG tabletIndications :Intractable migraine with 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 Take 3 tablets by mouth 2 times daily 90 tablet 5 5 Active rimegepant sulfate (NURTEC) 75 MG TBDPIndications:I ntractable migraine with 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 Take 75 mg by mouth as needed (as needed , once a day for severe headche) 8 tablet 2 5 Active Active Problems Patient Care Coordination No te Formatting of this note migh t be different from the original. 04/10/19 biopsy recommendation not performed by surgeon as was not indicated by imaging at time of scheduled biopsy 04/04/2020 mammo again requested biopsy of ill defined solid nodule at 4 oclock 8 cm from nipple. This biopsy from 06/08/20 yielded benign fibroadipose tissue - no epithelial breast component is identified in biopsy material negative for atypia and malignancy. Clip was placed. With this patient being at higher risk with her mother having breast cancer I would like to order breast MRI at next screening interval if able to with her clip. Problem Noted Date Diagnosed Date Migraine 07/09/2016 Overview (07/09/2016): Referred to neuro 2016. for reported migraines. 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 Chest pain 05/04/2014 Abnormal ECG 05/04/2014 Tobacco abuse 05/04/2014 Depression 05/04/2014 COPD (chronic obstructive pulmonary disease) 07/2013 Bipolar disorder 05/04/2014 Atypical chest pain Resolved Problems Problem Noted Date Diagnosed Date Resolved Date Colon cancer screening 11/30/201303/31 Encounters Date Type Department Care Team Description 12/17/2024 8:30 AM EDT - 12/19/2024 11:59 PM EDT Hospital Encounter [facility] Non-Invasive Cardiology [address] [place] [address] Wood Turner MD Abnormal EKG; RBBB; History of PR (myocardial infarction); Tobacco abuse counseling Discharge Disposition: Home or Self Care 12/17/2024 Results Follow-Up [facility] Cardiology [address] [place] [address] [place] [address] Wood Turner MD 12/07/2024 1:40 PM EDT Office Visit [facility] Part of [address] [phone] Wood Turner MD Abnormal EKG (Primary Dx); RBBB; History of PR (myocardial infarction); Tobacco abuse counseling 11/10/[address], [address] [place] [address] Paramjit Olvera MD 11/09/2024 1:30 PM EDT Office Visit [address], [address] [place] [address] Paramjit Olvera MD Intractable migraine with 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 (Primary Dx); Depression, unspecified depression type from Last 3 Months Immunizations Immunization Administration Dates Next Due Influenza Vaccine, unspecified formulation 04/03 Influenza Virus Vaccine 03/20/2017,04/12/2014 TDaP, ADACEL (age 10y-64y), BOOSTRIX (age 10y+), IM, 0.5mL 12/27/2017 Zoster Live (Zostavax) 01/30/2016 Family History Medical History Relation Name Comments Kidney Cancer Father Breast Cancer Mother Other Other No family h/o o varian cancer or DVT. Relation Name Status Comments Brother Father Maternal Grandfather Maternal Grandmother Mother Other Other Paternal Grandfather Paternal Grandmother Social History Tobacco Use Types Packs/Day Years Used Date Smoking Tobacco: Former Cigarettes 0.3 40 Smokeless Tobacco: Never Tobacco Cessation:Counseling Given: Not Answered Comments: I smoke about 3-6 cig/day - [...] on file Sexual Orientation Not on file Last Filed Vital Signs Vital Sign Reading Time Taken Comments Blood Pressure 121/70 12/17/2024 8:48 AM EDT Pulse 68 12/07/2024 1:49 PM EDT Temperature 36.6 C (97.9 F) 04/23/2024 9:19 PM EST Respiratory Rate 18 12/07/2024 1:49 PM EDT Oxygen Saturation 97% 12/07/2024 1:49 PM EDT Inhaled Oxygen Concentration - - Weight 66.2 kg (146 lb) 12/17/2024 8:48 AM EDT Height 160 cm (5' 2.99 ) 12/17/2024 8:48 AM EDT Body Mass Index 25.87 12/17/2024 8:48 AM EDT Plan of Treatment Upcoming Encounters Date Type Department Care Team (Late st Contact Info) Description 03/08/2025 2:30 PM EDT Office Visit [facility] [address] [facility] [address] [facility] [address], [address] [place] [address] Paramjit Olvera MD [address] [facility] [address] [place] [address] 3 month follow up Health Maintenance Due Date Last Done Comments Depression Monitoring 1968 Hepatitis C screen 1974 Colonoscopy 2001 Fecal-DNA (Cologuard): Average risk 2001 Sigmoidoscopy/CT colonography 2001 Shingles vaccine (2 of 3) 03/26/2016 01/30/2016, 12/2014 Respiratory Syncytial Virus (RSV) or age 60 yrs+ (1 - Risk 60-74 years 1-dose series) 2016 A1C test (Diabetic or Prediabetic) 08/10/2017 08/10/2016, 09/20/2015 Colorectal Cancer Screen 02/07/2020 FIT/FOBT: Average risk 02/07/2020 02/06/2019 Annual Wellness Visit (Medicare Advantage) 06/03/2024 COVID-19 Vaccine ( season) 2024 02/26/2024, 03/22/2022, 06/12/2021, Additional history exists Flu vaccine (#1) 01/01/2025 03/14/2020, , 03/20/2018, Additional history exists GFR test (Diabetes, CKD 3-4, OR last GFR 15-59) 04/23/2025 04/23/2024, 08/01/2021, 07/08/2020, Additional history exists Breast cancer screen 06/01/2025 06/01/2024, 11/11/2020, 06/08/2020, Additional history exists Lipids 07/14/2025 07/14/2020, 02/0 10/2020, 03/10/2020, Additional history exists DTaP/Tdap/Td vaccine (3 - Td or Tdap) 12/28/2027 12/27/2017, 01/06/2009 DEXA (modify frequency per FRAX score) Completed 02/25/2019 Cervical cancer screen Discontinued Pap smear Discontinued 08/16/2022, 08/01, 08/10/2021, Additional history exists Pneumococcal 0-49 years Vaccine Discontinued 10/04/2023, 10/04/2023, 03/31/2020 Pneumococcal 50+ years Vaccine Completed 10/04/2023, 10/04/2023, 03/31/2020 HPV (without or with Pap) Discontinued Hepatitis A vaccine Aged Out No longe r eligible based on patient's age to complete this topic Hepatitis B vaccine Aged Out No longe r eligible based on patient's age to complete this topic Hib vaccine Aged Out No longer eligi ble based on patient's age to complete this topic Meningococcal (ACWY) vaccine Aged Out No longer eligible based on patient's age to complete this topic Meningococcal B vaccine Aged Out No l onger eligible based on patient's age to complete this topic Polio vaccine Aged Out No longer elig ible based on patient's age to complete this topic Goals Goal Patient Goal Type Associated Problems Recent Progress Patient-Stated? Author Quit smoking. Lifestyle No Blanca Sheridan Procedures Procedure Name Priority Date/Time Associated Diagnosis Comments ECHO (TTE) COMPLETE Routine 12/17/2024 9 :25 AM EDT Abnormal EKG RBBB History of PR (myocardial infarction) Tobacco abuse counseling COMPREHENSIVE METABOLIC PANEL Stat [employer] Label print 04/23/2024 1:30 PM EST SUPERVISOR WET END CYTOLOGY Routine 08/16/2022 7:57 AM EDT LINDA ERYN DIGITAL DIAGNOSTIC BILATERAL Routine 11/11/2020 10:47 AM EDT History of breast biopsy LIPID PANEL Routine 07/14/2020 7:00 AM EST DEXA BONE DENSITY AXIAL SKELETON Routine 02/25/2019 2:55 PM EDT Screening for osteoporosis BLOOD OCCULT STOOL DIAGNOSTIC Routine 02/06/2019 10:00 AM EDT Colon cancer screening HEMOGLOBIN A1C Routine 08/10/2016 12:53 PM EST from Last 3 Months or Most Recently Relevant to Health Maintenance Results * (ABNORMAL) ECHO (TTE) COMPLETE (12/17/2024 9:25 AM EDT) LV EDV A2C 42 mL [facility] CV CPACS LV EDV A4C 49 mL [facility] CV CPACS LV ESV A2C 18 mL [facility] CV CPACS LV ESV A4C 15 mL [facility] CV CPACS IVSd 1.7(A) 0.6 - 0.9 cm [facility] CV CPACS LVIDd 3.2(A) 3.9 - 5.3 cm [facility] CV CPACS LVIDs 2.7 cm [facility] LVOT Mean Gradient 1 mmHg [facility] LVOT VTI 16.1 cm [facility] LVOT Peak Velocity 0.9 m/s [facility] CV [facility]ACS LVOT Peak Gradient 3 mmHg [facility] CV CPACS LVPWd 1.3(A) 0.6 - 0.9 cm [facility]ACS LV E' Lateral Velocity 6.20 cm/s [facility]ACS LV Ejection Fraction A2C 58 % [facility] CV CPACS LV Ejection Fraction A4C 69 % [facility] CV CPACS EF BP 64 55 - 100 % [facility] CV CPACS LA Minor Rewey 4.6 cm [facility] CV CPACS LA Major Rewey 4.5 cm [facility] CV CPACS LA Area 2C 11.2 cm2 [facility] CV CPACS LA Area 4C 13.0 cm2 [facility] CV CPACS LA Volume MOD A2C 22 22 - 52 mL [facility] CV CPACS LA Volume MOD A4C 31 22 - 52 mL [facility] CV CPACS LA Volume BP 26 22 - 52 mL [facility] CV CPACS AV Cusp Mmode 1.4 cm [facility] CV CPACS AV Mean Gradient 2 mmHg [facility] CV CPACS AV VTI 19.1 cm [facility] CV CPACS AV Mean Velocity 0.6 m/s [facility] CV CPACS AV Peak Velocity 0.9 m/s [facility] CV CPACS AV Peak Gradient 3 mmHg [facility] CV CPACS Ascending Aorta 2.7 cm [facility] CV CPACS Sinotubular Junction 2.5 cm [facility] CV CPACS Aortic Sinus Valsalva 2.9 cm [facility] CV CPACS MV E Wave Deceleration Time 250.0 ms BS CV CPACS MV A Velocity 0.78 m/s BS CV CPACS MV E Velocity 0.30 m/s BS CV CPACS PV Max Velocity 0.7 m/s BS CV CPACS PV Peak Gradient 2 mmHg BS CV CPACS TAPSE 2.2 >=1.7 cm BS CV CPACS TR Max Velocity 1.67 m/s BS CV CPACS TR Peak Gradient 11 mmHg BS CV CPACS Body Surface Area 1.72 m2 BS CV CPACS Fractional Shortening 2D 16 28 - 44 % BS CV CPACS LV ESV Index A4C 9 mL/m2 BS CV CPACS LV EDV Index A4C 29 mL/m2 BS CV CPACS LV ESV Index A2C 11 mL/m2 BS CV CPACS LV EDV Index A2C 25 mL/m2 BS CV CPACS LVIDd Index 1.89 cm/m2 BS CV CPACS LVIDs Index 1.60 cm/m2 BS CV CPACS LV RWT Ratio 0.81 BS CV CPACS LV Mass 2D 171.6(A) 67 - 162 g BS CV CPACS LV Mass 2D Index 101.6(A) 43 - 95 g/m2 [facility] CPACS MV E/A 0.38 BS CV CPACS E/E' Lateral 4.84 BS CV CPACS LA Volume Index BP 15(A) 16 - 34 ml/m2 [facility] CV CPACS LA Volume Index MOD A2C 13(A) 16 - 34 ml/m2 BS CV CPACS LA Volume Index MOD A4C 18 16 - 34 ml/m2 BS CV CPACS Aortic Sinus Valsalva Index 1.72 cm/m2 BS CV CPACS Ascending Aorta Index 1.60 cm/m2 BS CV CPACS AV Velocity Ratio 1.00 BS CV CPACS LVOT:AV VTI Index 0.84 BS CV CPACS Est. RA Pressure 3 mmHg BS CV CPACS RVSP 14 mmHg BS CV CPACS EF Physician 65 % BS CV CPACS Anatomical Region Laterality Modality Echocardiography Narrative 12/17/2024 5:05 PM EDT Left Ventricle: Normal left ventricular systolic function with a visually estimated EF of 60 - 65%. Left ventricle size is normal. Moderately increased wall thickness. Mild posterior thickening. Normal wall motion. Grade I diastolic dysfunction with normal LAP. Mitral Valve: Mild regurgitation. Tricuspid Valve: Trace regurgitation. Image quality is adequate. Compared to the previous study on 03/06/22, no significant change was seen. Left Ventricle Normal left ventricular systolic function with a visually estimated EF of 60 - 65%. Left ventricle size is normal. Moderately increased wall thickness. Mild posterior thickening. Normal wall motion. Grade I diastolic dysfunction with normal LAP. Right Ventricle Right ventricle size is normal. Normal systolic function. Left Atrium Left atrium size is normal. Right Atrium Right atrium size is normal. IVC/SVC IVC diameter is normal or and decreases greater than 50% during inspiration; therefore the estimated right atrial pressure is normal (~3 mmHg). IVC size is normal. Mitral Valve Valve structure is normal. Mild regurgitation. No stenosis noted. Tricuspid Valve Valve structure is normal. Trace regurgitation. No stenosis noted. Aortic Valve Valve structure is normal. No regurgitation. No stenosis. Pulmonic Valve The pulmonic valve visualization is suboptimal but appears to be functioning normally. Trace regurgitation. No stenosis noted. Ascending Aorta Normal sized aortic root. Pericardium No pericardial effusion. Study Details Image quality: adequate. No contrast was given. us Wood Turner MD ECHO ORDERABLES Final Result * (ABNORMAL) Comprehensive Metabolic Panel (04/23/2024 1:30 PM EST) Sodium 140 136 - 145 mmol/L 04/23/2024 1:30 PM EST [facility] Potassium 4.6 3.7 - 5.3 mmol/L 04/23/2024 1:30 PM EST [facility] Chloride 109(H) 98 - 107 mmol/L 04/23/2024 1:30 PM EST [facility] CO2 22 20 - 31 mmol/L 04/23/2024 1:30 PM EST [facility] Anion Gap 9 9 - 16 mmol/L 04/23/2024 1:30 PM EST [facility] Glucose 106(H) 74 - 99 mg/dL 04/23/2024 1:30 PM EST [facility] BUN 25(H) 8 - 23 mg/dL 04/23/2024 1:30 PM EST [facility] Creatinine 1.5(H) 0.6 - 0.9 mg/dL 04/23/2024 1:30 PM EST [facility] Est, Glom Filt Rate 38(L) >60 mL/min/1. 73m2 04/23/2024 1:30 PM EST [facility] Comment: These results are not intended for [...] following therapy that affects renal tubular secretion. Calcium 9.6 8.6 - 10.4 mg/dL 04/23/2024 1:30 PM EST [facility] Total Protein 6.4(L) 6.6 - 8.7 g/dL 04/23/2024 1:30 PM EST [facility] Albumin 4.2 3.5 - 5.2 g/dL 04/23/2024 1:30 PM EST [facility] Albumin/Globulin Ratio 1.9 1.0 - 2.5 04/23/2024 1:30 PM EST [facility] Total Bilirubin <0.2 0.0 - 1.2 mg/dL 04/23/2024 1:30 PM EST [facility] Alkaline Phosphatase 116(H) 35 - 104 U/L 04/23/2024 1:30 PM EST [facility] ALT 19 10 - 35 U/L 04/23/2024 1:30 PM EST [facility] AST 17 10 - 35 U/L 04/23/2024 1:30 PM EST [facility] Blood BLOOD SPECIMEN / Unknown 04/23/2024 1:30 PM EST 04/23/2024 1:35 PM EST us Jesus Mims MD CHEMISTRY ORDERABLES Final Resul t CLAIRE CHEUNG [address] [place] [address], [facility] [phone] * SUPERVISOR WET END Cytology (08/16/2022 7:57 AM EDT) Cytology Report INTERPRETATION Cervical material, (ThinPrep vial, Imaging-assisted review): Specimen Adequacy: Satisfactory for evaluation. Descriptive Diagnosis: Negative for intraepithelial lesion or malignancy. Tax Compliance Agent: ROSY ARCHIBALD(ASCP) Electronically Signed Out /08/24/2022 Source: A: Cervical material, (ThinPrep vial, Imaging-assisted review) Clinical History Hysterectomy Z12.4 Encounter for screening for malignant neoplasm of cervix GYNECOLOGIC CYTOLOGY REPORT Patient Name: MARTÍNEZ ALMEIDA [facility] Rec: [id number] Path Number: [id number] [facility] ANATOMIC PATHOLOGY [address] [place], [place] [phone] [facility] CERVICAL MATERIAL 08/16/2022 7:57 AM EDT 08/17/2022 7:57 AM EDT She Spencer CONSTRUCTION SCHEDULER - CNM PATHOLOGY/CYTOLO GY ORDERABLES Final Result Performing Organization Address City/State/[facility] Co de Phone Number [facility] [address] [place], [place] [address] [phone] [phone] * LINDA ERYN DIGITAL DIAGNOSTIC BILATERAL (11/11/2020 10:47 AM EDT) Anatomical Region Laterality Modality Bilateral Mammography 11/11/2020 10:1 9 AM EDT Impressions 11/11/2020 10:07 PM EDT 1. No mammographic evidence of malignancy. BIRADS: BIRADS - CATEGORY 2 Benign Findings. Normal interval follow-up is recommended in 12 months. OVERALL ASSESSMENT - BENIGN A letter of notification will be sent to the patient regarding the results. The [employer] recommends annual mammograms for women 40 years and older. Narrative 11/11/2020 10:07 PM EDT EXAMINATION: DIAGNOSTIC DIGITAL BILATERAL BREASTS [...] dated June 08, 2020 is not visible. She Spencer CONSTRUCTION SCHEDULER - [facility] IM MAMMOGRAPHY ORDERABLES Final Result * (ABNORMAL) Lipid Panel (07/14/2020 7:00 AM EST) Cholesterol 151 <200 mg/dL 07/14/2020 7:00 AM [facility] Comment: Cholesterol Guidelines: <200 Desirable 200-240 Borderline >240 Undesirable HDL 42 >40 mg/dL 07/14/2020 7:00 AM [facility] Comment: HDL Guidelines: <40 Undesirable 40-59 Borderline >59 Desirable LDL Cholesterol 79 0 - 130 mg/dL 07/14/2020 7:00 AM [facility] Comment: LDL Guidelines: <100 Desirable 100-129 Near to/above Desirable 130-159 Borderline >159 Undesirable Direct (measured) LDL and calculated LDL are not interchangeable tests. Chol/HDL Ratio 3.6 <5 07/14/2020 7:00 AM [facility] Comment: Triglycerides 151(H) <150 mg/dL 07/14/2020 7:00 AM [facility] Comment: Triglyceride Guidelines: <150 Desirable 150-199 Borderline 200-499 High >499 Very high Based on AHA Guidelines for fasting triglyceride, March 2012. VLDL NOT REPORTED 1 - 30 mg/dL 07/14/2020 7:00 AM [facility] 07/14/2020 7:00 AM EST 07/18/2020 10:38 AM EST us Lolis Mccormick MD CHEMISTRY ORDERABLES Final Resul t [facility] [address] [place] [address], [facility] [phone] [facility] [address] [place] [address], [facility] [phone] * DEXA BONE DENSITY AXIAL SKELETON (02/25/2019 2:55 PM EDT) Anatomical Region Laterality Modality Head, C-spine, T-spine, L-spine, Chest Radiographic Imaging 02/25/2019 2:58 PM EDT Impressions 02/25/2019 3:00 PM EDT Osteopenia by WHO criteria. Narrative 02/25/2019 3:00 PM EDT EXAMINATION: BONE DENSITOMETRY 02/25/2019 2:55 pm TECHNIQUE: A bone density dual x-ray absorptiometry (DEXA) scan was performed of the lumbar spine and left hip on a eduFire system. COMPARISON: None. HISTORY: ORDERING SYSTEM PROVIDED HISTORY: Screening for osteoporosis FINDINGS: LUMBAR SPINE: The bone mineral density in the lumbar spine including the L1-L4 levels is measured at 0.995 g/cm2, which corresponds to a T-score of -1.5 and a Z-score of -0.4. This is within the osteopenia range by WHO criteria. LEFT HIP: The bone mineral density in the total hip is measured at 0.996 g/cm2 corresponding to a T-score of -0.1 and a Z-score of 0.8. This is within the normal range by WHO criteria. The bone mineral density of the femoral neck is measured at 0.853 g/cm2 corresponding to a T-score of -1.3 and a Z-score of -0.1. This is within the osteopenia range by WHO criteria. FRAX 10 year probability of fracture: - major osteoporotic fracture: 7.9% - hip fracture: 1.0% Procedure Note Ivy Kumar MD - 02/25/2019 EXAMINATION: BONE DENSITOMETRY 02/25/2019 2:55 pm TECHNIQUE: A bone density dual x-ray absorptiometry (DEXA) scan was performed ofthe lumbar spine and left hip on a eduFire system. COMPARISON: None. HISTORY: ORDERING SYSTEM PROVIDED HISTORY: Screening for osteoporosis FINDINGS: LUMBAR SPINE: The bone mineral density in the lumbar spine including the L1-L4 levelsis measured at 0.995 g/cm2, which corresponds to a T-score of -1.5 and aZ-score of -0.4. This is within the osteopenia range by WHO criteria. LEFT HIP: The bone mineral density in the total hip is measured at 0.996 g/cm2 corresponding to a T-score of -0.1 and a Z-score of 0.8. This is withinthe normal range by WHO criteria. The bone mineral density of the femoral neck is measured at 0.853 g/cm2 corresponding to a T-score of -1.3 and a Z-score of -0.1. This is withinthe osteopenia range by WHO criteria. FRAX 10 year probability of fracture: - major osteoporotic fracture: 7.9% - hip fracture: 1.0% IMPRESSION: Osteopenia by WHO criteria. She Spencer CONSTRUCTION SCHEDULER - CNM IMG DEXA ORDERAB LES Final Result * Blood Occult Stool #1 (02/06/2019 10:00 AM EDT) Occult Blood, Stool #1 NEGATIVE NEGATIVE 02/06/2019 10:00 AM [facility] Date, Stool #1 [id number] 02/06/2019 10:00 AM [facility] Time, Stool #1 1,000 02/06/2019 10:00 AM [facility] Occult Blood, Stool #2 NOT REPORTED NEGATIVE 02/06/2019 10:00 AM [facility] Date, Stool #2 NOT REPORTED 02/06/2019 10:00 AM [facility] Time, Stool #2 NOT REPORTED 02/06/2019 10:00 AM [facility] Occult Blood, Stool #3 NOT REPORTED NEGATIVE 02/06/2019 10:00 AM [facility] Date, Stool #3 NOT REPORTED 02/06/2019 10:00 AM [facility] Time, Stool #3 NOT REPORTED 02/06/2019 10:00 AM EDT [facility] STOOL SPECIMEN / Unknown 02/06/2019 10:00 AM EDT 02/06/2019 1:32 PM EDT She Spencer CONSTRUCTION SCHEDULER - CNM BODY FLUIDS AND STOOLS ORDERABLES Final Result Performing Organization Address [facility] Co de Phone Number [facility] [address] [place] [address] * Hemoglobin A1C (08/10/2016 12:53 PM EST) Hemoglobin A1C 5.8 4.8 - 5.9 % 08/10/2016 2:34 PM EST [facility] Estimated Avg Glucose 120 mg/dL 08/10/2016 2:34 PM EST [facility] Comment: The ADA and AACC recommend providing the estimated average glucose result to permit better patient understanding of their HBA1c result. Performed at [address] [place] [address] ([phone] 08/10/2016 12:5 3 PM EST 08/10/2016 12:54 PM EST Yen Crocker CONSTRUCTION SCHEDULER - COOLING PAN TENDER CHEMISTRY ORDERABLES F inal Result Performing Organization Address [facility]/ZIP Co de Phone Number [facility] [address] [place], [place] [address] [phone] [facility] from Last 3 Months or Most Recently Relevant to Health Maintenance Additional Health Concerns Infection Onset Date Last Indicated ESBL (Extended Spectrum Beta Lactamase) Comment:03/22/13 - urine - e.coli 03/24/2013 03/24/2013 Insurance DUAL COMPLETE Advance Directives Documents on File Type Date Recorded 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
--- OUTSIDE RECORDS SUMMARY | 2025-02-08 11:58 | XMS_ITS | Encounter Summary ---
Author Organization [facility] Address [address] [facility], [address] [place] [address] Care Team Providers Care Business Center Manager Name Role Phone Moe Hendrix DO Primary Care Provider + [phone] Reason for Visit * Reason Comments Other Encounter Details Date Type Department Care Team (Late Contact Info) Description 03/16/2014 Refill [facility] ([place] [address] [place] [address] [phone] Misha Seals W, BILLING SPECIALIST - CARE MANAGER [address] [place] [address] Other Social History Tobacco Use [...] Description 03/08/2025 2:30 PM EDT Office Visit [facility] [address] [facility] [address], [address] [place] [address] Paramjit Olvera MD [address] [facility] [place] [address] 3 month follow up documented as of this encounter Visit Diagnoses Not on filedocumented in this encounter Additional Health Concerns Infection Onset Date Last Indicated Resolved Time ESBL (Extended Spectrum Beta Lactamase) Comment:03/22/13 - urine - e.coli 03/24/2013 03/24/2013 documented as of this encounter Care Teams Business Center Manager Relationship Specialty Start Date End Date Moe Hendrix DO [address] [facility] [place] [address] PCP - General Family Medicine 12/17/24 documented as of this encounter
--- OUTSIDE RECORDS SUMMARY | 2025-02-08 11:58 | XMS_ITS | Encounter Summary ---
Author Organization [facility] Address [address] [facility], [address] [place] [address] Care Team Providers Care Generating Station Mechanic Name Role Phone LilianMoe mullen Shakir DUMONT Primary Care Provider + [phone] Reason for Visit * Reason Comments Medication Refill Encounter Details Date Type Department Care Team (Late Contact Info) Description 02/15/2020 Refill [facility] Part of [address] [place] [phone] Bhupinder Iniguez MD [address] [place] [address] [address] [place] [address] Medication Refill Social History Tobacco [...] Description 03/08/2025 2:30 PM EDT [facility] Visit [facility] [address] [facility] [address], [address] [place] [address] Paramjit Olvera MD [address] [address] [address] [place] [address] 3 month follow up documented as of [...] documented as of this encounter Care Teams Generating Station Mechanic Relationship Specialty Start Date End Date Moe Hendrix DO [address] [place] [address] PCP - General Family Medicine 12/17/24 documented as of this encounter
--- OUTSIDE RECORDS SUMMARY | 2025-02-08 11:58 | XMS_ITS | Encounter Summary ---
Author Organization [facility] Address [address] [facility] [place] [address] Care Team Providers Care Motor Vehicle Assembler Name Role Phone Moe Hendrix DO Primary Care Provider + [phone] Reason for Visit * Reason Comments Other Encounter Details Date Type Department Care Team (Late Contact Info) Description 12/13/2014 Refill [facility] ([place]) [address] [place] [phone] Misha Seals W, MAGAZINE SUPERVISOR - SANITARIAN AIDE [address] [place] [address] Other Social History Tobacco Use [...] Description 03/08/2025 2:30 PM EDT Office Visit [facility] [address] [facility] [address], [address] [place] [address] Paramjit Olvera MD [address] [facility] [address] [place] [address] 3 month follow up documented [...] documented as of this encounter Care Teams Motor Vehicle Assembler Relationship Specialty Start Date End Date Moe Hendrix DO [address] [place] [address] PCP - General Family Medicine 12/17/24 documented as of this encounter
--- OUTSIDE RECORDS SUMMARY | 2025-02-08 11:58 | XMS_ITS | Encounter Summary ---
Author Organization [facility] Address [address] [facility] [place] [address] Care Team Providers Care Machine Package Sealer Name Role Phone Moe Hendrix DO Primary Care Provider + [phone] Reason for Visit * Reason Comments Other Encounter Details Date Type Department Care Team (Late Contact Info) Description 12/29/2014 Refill [facility] ([place]) [address] [place] [phone] Misha Seals W, MANAGER [employer] - MAGAZINE FILLER [address] [place] [address] Other Social History Tobacco Use [...] Description 03/08/2025 2:30 PM EDT Office [facility] [address] [facility] [address], [address] [place] [address] Paramjit Olvera MD [address] [facility] [address] [place] [address] 3 month follow up documented [...] documented as of this encounter Care Teams Machine Package Sealer Relationship Specialty Start Date End Date Moe Hendrix DO [address] [place] [address] PCP - General Family Medicine 12/17/24 documented as of this encounter
--- OUTSIDE RECORDS SUMMARY | 2025-02-08 11:58 | XMS_ITS | Encounter Summary ---
Author Organization [facility] Address [address] [facility] [place] [address] Care Team Providers Care Placement Specialist Name Role Phone RumaMoe Shakir DUMONT Primary Care Provider + [phone] Reason for Visit * Reason Comments Medication Refill Encounter Details Date Type Department Care Team (Late st Contact Info) Description 01/11/2015 Refill [facility] ([place]) [address] [place] [phone] Misha Seals W, CROWN ASSEMBLY MACHINE SET UP MECHANIC - FLASHER ADJUSTER [address] [place] [address] Medication Refill Social History Tobacco [...] Description 03/08/2025 2:30 PM EDT Office Visit [facility] [address] [facility] [address] - [address], [address] [place] [address] Paramjit Olvera MD [address] [facility] [place] [address] 3 month follow up documented [...] documented as of this encounter Care Teams Placement Specialist Relationship Specialty Start Date End Date Moe Hendrix DO [address] [place] [address] PCP - General Family Medicine 12/17/24 documented as of this encounter
--- OUTSIDE RECORDS SUMMARY | 2025-02-08 11:58 | XMS_ITS | Encounter Summary ---
Author Organization [facility] Address [address] [facility], [address] [place] [address] Care Team Providers Care Attending Ambulatory Care Name Role Phone RumaMoe Shakir DUMONT Primary Care Provider + [phone] Reason for Visit * Reason Comments Medication Refill Encounter Details Date Type Department Care Team (Late st Contact Info) Description 02/24/2015 Refill [facility] ([place]) [address] [place] [phone] Misha Seals W, CHECKROOM CHIEF - SALES SERVICE ASSISTANT [address] [place] [address] Medication Refill Social History Tobacco [...] Description 03/08/2025 2:30 PM EDT Office [facility] [address] [facility] [address] Floor, [address] [place] [address] Paramjit Olvera MD [address] [facility] [place] [address] 3 month follow up documented [...] documented as of this encounter Care Teams Attending Ambulatory Care Relationship Specialty Start Date End Date Moe Hendrix DO [address] [place] [address] PCP - General Family Medicine 12/17/24 documented as of this encounter
--- OUTSIDE RECORDS SUMMARY | 2025-02-08 11:58 | XMS_ITS | Patient Health Record ---
Author Organization [facility] Address [address] [place] [address] Care Team Providers Care Prep Person Name Role Phone Dr. Yandel Ball Primary Care Provider Reason For Referral No Information Plan Of Treatment No Information Insurance Providers Payer Name Payer Address Payer Phone Subscriber Number Group Number Insured Name Patient Relationship to Insured Coverage Start Date Coverage End Date z[employer] CE-termed [address] [place] [address] [id number] MARTÍNEZ ALMEIDA Self - patient is the insured 2 3 [employer] [place] [address] [place] [address] [id number] MARTÍNEZ ALMEIDA Self - patient is the insured 3 zMEDICAID C[employer] after [employer] E-termed 22 [address] [place] [address] [id number] MARTÍNEZ ALMEIDA Self - patient is the insured 2 3 Wrap [employer] [address] [place] [address] [id number] MARTÍNEZ ALMEIDA Self - patient is the insured 3 Dental [employer] [place] [address] [place] [phone] [id number] MARTÍNEZ ALMEIDA Self - patient is the insured 3 Dental Wrap [facility] [address] [place] [address] [id number] MARTÍNEZ ALMEIDA Self - patient is the insured 3 DENTAL MEDICAID [place] [address] [place] [address] [id number] MARTÍNEZ ALMEIDA Self - patient is the insured 2 3
--- OUTSIDE RECORDS SUMMARY | 2025-02-08 11:58 | XMS_ITS | Encounter Summary ---
Author Organization [facility] Address [address] [facility], [address] [place] [address] Care Team Providers Care Ice Cream Man Name Role Phone Moe Hendrix DO Primary Care Provider + [phone] Reason for Visit * Reason Comments Medication Refill Encounter Details Date Type Department Care Team (Late st Contact Info) Description 01/11/2017 Refill [facility] Neurology specialist [address] [place] [address] Toby Vasquez DO [address] [facility] [address] [place], [place] [phone] Medication Refill Social History Tobacco Use Types [...] Description 03/08/2025 2:30 PM EDT Office Visit [facility] [address] [facility] [address], [address] [place] [address] Paramjit Olvera MD [address] [facility] [place] [address] 3 month follow up documented as of this encounter Goals Goal Patient Goal Type Associated Problems Recent Progress Patient-Stated? Author Quit smoking. Lifestyle No Blanca Sheridan documented as of this encounter Visit Diagnoses Diagnosis Chronic migraine without 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, not intractable Chronic migraine without aura, without mention of intractable migraine without mention of status migrainosus documented in this encounter Additional Health Concerns Infection Onset Date Last Indicated Resolved Time ESBL (Extended Spectrum Beta Lactamase) Comment:03/22/13 - urine - e.coli 03/24/2013 03/24/2013 documented as of this encounter Care Teams Ice Cream Man Relationship Specialty Start Date End Date Moe Hendrix DO [address] [facility] [place] [address] PCP - General Family Medicine 12/17/24 documented as of this encounter
--- OUTSIDE RECORDS SUMMARY | 2025-02-08 12:23 | XMS_ITS | CCD ---
Author Organization [facility] CliniSynh Care Team Providers Care Operations Vice President Name Role Phone Karla Clark Unavailable Unavailable Sprout Unavailable Unavailable Kristine Beavers Unavailable Unavailable Amber, Karla Unavailable Unavailable Amber Karla Unavailable Unavailable JORGE Unavailable Unavailable Karla Clark Primary Care Physician Unavailab le Sprout Unavailable Unavailable Beavers, Kristine Unavailable Unavailable Amber, Karla Unavailable Unavailable Karla Clark Primary Care Provider Karla Clark Primary Care Provider Karla Clark Primary Care Provider [phone] Karla Clark Primary Care Provider Amber STEVENS - Karla CROOKS M Primary Care Provider Karla Clark CNP Primary Care Provider Karla Clark CNP Unavailable Roseline Meraz Primary Care Physician Amber STEVENS - Karla CROOKS M Primary Care Provider Amber STEVENS - Karla CROOKS M Primary Care Provider Karla Clark CNP Primary Care Provider Emory Adame Unavailable DO Emory Adame Attending Provider RODNEY Clark Primary Care Provider NO FAMILY, PHYSICIAN Primary Care Provider Unava ilable MISC, DR LINDQUIST Admitting Unavailable MISC, DR LINDQUIST Consulting Unavailable SCOTT, DR LINDQUIST Attending Unavailable MS KARLA CLARK Primary Care Unavailable REKHA MUNOZ Admitting Unavailable REKHA MUNOZ Consulting Unavailable REKHA MUNOZ Attending Unavailable AMBER, MS KARLA Primary Care Unavailable REKHA MUNOZ Admitting Unavailable REKHA MUNOZ Consulting Unavailable REKHA MUNOZ Attending Unavailable AMBER, MS KARLA Primary Care Unavailable AMBER, MS KARLA Primary Care Unavailable DENISHA ., BRADY Admitting Unavailable DENISHA Torrez, BRADY Attending Unavailable DR HÉCTOR HO Consulting Unavailable DENISHA ., BRADY Consulting Unavailable RODNEY Clark M Primary Care Provider DO Emory Adame Attending Provider MD Monster Davis Attending Provider AmberRODNEY dinh Primary Care Provider DO Zak Reza Attending Provider MD Joe Davis Admit Provider MD Joe Davis Attending Provider [phone] NON STAFF Primary Care Provider UnavailTAWANNA Baker Other Provider Unavailable TAWANNA Pizarro Other Provider Unavailable TAWANNA Hudson Other Provider Unavailable TAWANNA Sams Other Provider Unavailable TAWANNA Galvan Other Provider Unavailable TAWANNA Quiñonez Other Provider Unavailable RODNEY Milan Ana Alexey Other Provider DO Barbie Choi Other Provider [phone] MD Braden Dill Other Provider DO Chandu Villafana Other Provider MD Thomas Mendez Other Provider MD Kathrine Naik Other Provider Chilango, ANP-BC Mariana Other Provider MD Angel Haley Other Provider [phone] MD Link Salazar Other Provider MD Rosa Lowe Other Provider MD Brad Peng Other Provider DO Khalif Pettit Other Provider MD Sherif Campbell Other Provider MD Francisco Keene Other Provider CHAITANYA Aguilar Other Provider MD Jaswinder Robert Other Provider MD Titus Christianson Other Provider MD Kody Leon Other Provider MD Gibson Cid Other Provider DO Yolanda Davila Other Provider DO Jeancarlos Bonilla Other Provider [phone] DO Scottie Quinn Other Provider RODNEY Hallman Other Provider DO Jose Huang Other Provider [phone] MD Naga Lundberg Other Provider RODNEY Spencer Other Provider RODNEY Jenkins Other Provider MD Greg Ocampo Other Provider MD Loy Rivers Other Provider [phone] DO Ludwig Amador Other Provider [phone] RODNEY Jewell Other Provider TAWANNA Grimaldo Other Provider Unavailable RODNEY Pryor Other Provider [phone] MD Chris Adam Other Provider DO London Mccann Other Provider YANDEL DANIEL Referring Unavailable YANDEL DANIEL Referring Unavailable YANDEL DANIEL Referring Unavailable Unavailable Primary Care Provider Unavailabl e NON STAFF Primary Care Provider Unavaillizzette e DO Nimesh Westfall Emergency Provider [phone] MD Joe Davis Admit Provider MD Joe Davis Attending Provider DO Alannah James Attending Provider [phone] Lorenza HUNG, Deepti Hendricks Unavailable SCHAMARITOF, YANDEL Attending Unavailable SCHARPF, YANDEL Referring Unavailable SCHARPF, YANDEL Attending Unavailable SCHARPF, YANDEL Admitting Unavailable SCHARPF, YANDEL Attending Unavailable SCHARPF, YANDEL Attending Unavailable SCHARPF, YANDEL Attending Unavailable RODNEY Clark M Primary Care Provider [phone] MD Joe Davis Attending Provider NON STAFF Primary Care Provider UnavailHANDY Garcia Emergency Provider [phone] MD Joe Davis Admit Provider Amber CROOKS, Karla Unavailable DAKOTA MACK Attending Unavailable KARLA CLARK Referring Unavailable JOHAN HOWELL Attending Unavailable MURCEK, ALANNAH Torres Attending Unavailable JOHAN HOWELL Referring Unavailable MURCEK, ALANNAH Torres Attending Unavailable MURCEK, ALANNAH Torres Referring Unavailable MURCEK, ALANNAH Torres Attending Unavailable MURCEK, ALANNAH Torres Attending Unavailable LUCY GILBERT Attending Unavailable VIDA CULP Referring Unavailable LUCY GILBERT Attending Unavailable Amber HUNG, Karla Unavailable Kentrell Hurley DO Primary Care Provider Amber PALLIATIVE NURSE - INTERNET 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, Karla M Primary Care Provider NON STAFF Primary Care Unavailable Susan, Joe Admitting Unavailab le Swapnil, Reynaldo Attending Unavailable NON STAFF Primary Care Unavailable Alannah James Admitting Unavailable Mureverardo, Alannah Attending Unavailable Karla Clark Primary Care Unavailable Joe Davis Attending Unavailab le Susan, Joe Admitting Unavailab le Swapnil, Reynaldo Attending Unavailable NON STAFF Primary Care Unavailable Joe Davis Admitting Unavailab le KARLA CLARK Referring Unavailable KARLA CLARK Primary Care Unavailable YANELY MONDRAGON Attending Unavailable KARLA CLARK Primary Care Unavailable SAMI JASSO Attending Unavailable KARLA CLARK Primary Care Unavailable Moe Avila DO Primary Care Provider [phone] HÉCTOR TURNER Attending Unavailable HÉCTOR TURNER Referring Unavailable MOE AVILA Primary Care Unavailable Allergies Allergy Classification Reported Allergen(s) Allergy Type Date of Onset Reaction(s) Facility Aluminum aspirin (1 source) Aluminum aspirin Drug Allergy [facility] Aspirin (1 source) Aspirin Drug Allergy [facility] Barbiturates (1 source) Barbiturates Drug Allergy 014 Other (See Comments) [facility] Corticosteroids (1 source) predniSONE Drug Allergy 015 [facility] NSAIDs (1 source) Ibuprofen Drug Allergy [facility] Opioid Agonists (3 sources) Codeine Drug Allergy unknown [facility] Penicillins (antibiotic) (2 sources) Penicillins Drug Allergy Turning blue [facility] Serotonin Reuptake Inhibitors (SSRIs) (3 sources) FLUoxetine Drug Allergy 014 Feels weird [facility] Sulfamethoxazole / Trimethoprim (2 sources) Sulfamethoxazole / Trimethoprim Drug Allergy odor [facility] Sulfonamides (antibiotic) (2 sources) Sulfonamides (Antibiotic) Drug Allergy odor [facility] (20 sources) aspirin; Translations: [aspirin] Drug Allergy 023 [facility] Comment on above: 04/10/2016 - angelo (20 sources) codeine; Translations: [Codeine] Drug Allergy unknown [facility] (20 sources) Penicillins; Translations: [PENICILLINS] Allergy to substance (disorder) 013 Turning blue, Other: See Comments [facility] (20 sources) sulfamethoxazole / trimethoprim; Translations: [Bactrim DS] Drug Allergy [facility] (20 sources) Sulfonamides (Antibiotic); Translations: [Sulfa sensitivity] Allergy to substance (disorder) [facility] (20 sources) -Other; Translations: [-Other] Allergy to substance (disorder) Barbiturates, and amphetamines [facility] (6 sources) -No Known Food Allergies Allergy to substance (disorder) [facility] (20 sources) -No Environmental Allergies; Translations: [-No Environmental Allergies] Allergy to substance (disorder) [facility] (4 sources) Aspirin; Translations: [aspirin] Drug Allergy 023 Tremor (finding), Other: See Comments [facility] Comment on above: 04/10/2016 - ke (20 sources) Aluminum aspirin Drug Allergy [place] (20 sources) Barbiturates; Translations: [BARBITURATES] Propensity to adverse reactions to drug 014 Other (See Comments) [place] (20 sources) FLUoxetine; Translations: [fluoxetine] Drug Allergy 014 Feels weird, Unknown [place] (20 sources) FLUoxetine Drug Allergy 014 [place] (20 sources) Ibuprofen; Translations: [IBUPROFEN] Drug Allergy 018 Unknown [place] (20 sources) Meperidine; Translations: [meperidine] Drug Allergy 018 Unknown [place] (20 sources) predniSONE Drug Allergy 015 [place] (20 sources) Sulfamethoxazole / Trimethoprim; Translations: [sulfamethoxazole-t rimethoprim] Drug Allergy [place] (20 sources) Sulfonamides (Antibiotic) Propensity to adverse reactions to drug [place] (20 sources) Amphetamines Propensity to adverse reactions to drug [place] (20 sources) Metals Allergy to substance [facility] (20 sources) Aluminum-Containing Compounds Propensity to adverse reactions to drug [place] (1 source) Penicillin; Translations: [penicillin] Drug Allergy Cyanosis (finding) [facility] (1 source) Sulfonamides (Antibiotic); Translations: [sulfa drugs] Drug allergy [facility] (14 sources) Sulfonamides (Antibiotic) Propensity to adverse reactions to drug Intolerance [facility] [employer] Work Phone: (7 sources) Amphetamine aspartate / Amphetamine Sulfate / Dextroamphetamine saccharate / Dextroamphetamine Sulfate Drug Allergy pain [employer] [facility] Other (12 sources) Penicillin G Drug Allergy 024 anaphylaxis [facility] (7 sources) Sulf-10 Drug allergy odor producing [facility] Other (15 sources) Sulfonamides (Antibiotic); Translations: [SULFA (SULFONAMIDE ANTIBIOTICS)] Allergy to substance nausea; strange odor , nausea; strange odor , odor producing [facility] (7 sources) Barbiturate Drug allergy Unknown [facility] (7 sources) Amphetamine Drug Allergy pain [facility] (2 sources) Aspirin Drug Allergy [facility] (2 sources) Barbiturates Drug allergy (disorder) [facility] (2 sources) FLUoxetine Drug Allergy [facility] (1 source) FLUoxetine Drug Allergy [facility] (1 source) Ibuprofen Drug Allergy [facility] (1 source) Meperidine Drug Allergy 023 [facility] (1 source) predniSONE Drug Allergy [facility] (2 sources) Sulfamethoxazole / Trimethoprim Drug Allergy [facility] (1 source) Sulfonamides (Antibiotic) Drug allergy (disorder) 013 [facility] (8 sources) Sulfamethoxazole; Translations: [sulfamethoxazole] Drug Allergy Unknown Reaction [facility] (16 sources) Trimethoprim; Translations: [trimethoprim] Drug Allergy Unknown Reaction [facility] (8 sources) Barbiturate Drug Allergy [facility] (8 sources) Prednisone Propensity to adverse reactions [facility] (11 sources) traZODone; Translations: [trazodone] Drug Allergy restlessness [facility] (1 source) Amphetamine Drug Allergy [facility] (1 source) Aspirin Drug Allergy [facility] (1 source) Barbiturates Drug allergy (disorder) [facility] (1 source) FLUoxetine Drug Allergy [facility] (1 source) Ibuprofen Drug Allergy [facility] (1 source) Meperidine Drug Allergy [facility] (1 source) Penicillin Drug Allergy [facility] Medications Current Medications Medication Drug Class(es) [...] Oral Tablet 11/17/2020 Provider: Karla Clark CNP [id number] 200 actuat albuterol 0.09 mg/actuat metered dose [...] Start: 05-22-2017 End: 05-22-2017 VENTOLIN HFA 90MCG/ACTUAT DE SC 05/22/2017 - 05/22/2017 Provider: Start: 05-29-2016 [...] Start: 01-05-2016 End: 01-05-2016 VENTOLIN HFA 90MCG/ACTUAT DE SC 01/05/2016 - 01/05/2016 Provider: Start: 01-05-2016 [...] On Yasmine 04/23/24 at 2200 Start: 09-11-2022 amantadine (Sy mmetrel) 100 MG [...] by mouth two times a day. amylase [id number] unt / lipase 9000 unt / protease [id number] unt oral capsule (18 sources) take 1 capsule by mouth two times weekly Digestive Enzymes (ACIDOLL) CAPS Take by mouth Twice a Week Active Digestive Enzyme s (Bevitrol) capsule Take 1 capsule by mouth Active take 1 capsule by mo uth once daily at mealtime fbvmso-tjgzrhzu-qbczhdc (ENZADYNE) 9,000-112,500- 112,500 unit capsule Take 1 [...] dose, On Yasmine 04/23/24 at 2200 Start: 07-31-2018 End: 05-06-2020 Benztropine Mesylate 0.5 MG Oral Tablet 03/31/2020 Provider: Start: 06-28-2018 End: 05-02-2020 B[facility]OPINE 0.5 MG [facility] 06/[facility] - 05/02/2020 Provider: Start: 06-28-2018 End: 06-28-2018 BENZTROPINE 0.5 MG [facility] 06/04 - 06/28/2018 Provider: Start: 06-28-2018 End: 06-28-2018 BENZTROPINE 0.5MG [facility] 06/28 - 06/28/2018 Provider: take 1 tablet by [facility] every twenty-four hours Benztropine Mesylate 0.5 MG 1 tablet at bedtime Orally Once a day Active Comment on above: Take 0.5 mg by mouth two times a day. brompheniramine maleate 0.4 mg/ml / dextromethorphan hydrobromide 2 mg/ml / pseudoephedrine hydrochloride 6 mg/ml oral solution (20 sources) alpha-Adrenergic Agonist, Uncompetitive W-pconfa-V-aspartate Receptor Antagonist, Sigma-1 Agonist Start: 09-04-2018 Bromfed [...] 600+D Plus Minerals 600-400 MG-UNIT Oral Tablet (6 sources) Start: 08-14-2023 Calcium 600+D Plus Minerals [...] Shell 1250 (500 Ca) MG Oral Tablet (3 sources) Start: Calcium Oyster Shell 1250 (500 Ca) MG [...] sources) Central alpha-2 Adrenergic Agonist Start: 12-14-2021 cloNIDine HCl 0.1 MG Oral Tablet 12/14/2021 Provider: Start: 02-03-2016 End: 07-28-2021 cloNIDine HCl 0.1 MG OR TABS 02/25/2017 - 05/02/2020 Provider: cloNIDine 0.1 MG /24HR 1 patch to skin Transdermal Active Comment on above: Take 0.1 mg by mouth once daily. [facility] Mucus DM Extended Release 30-600 MG Oral Tablet Extended Release 12 Hour (3 sources) Start: 01-27-20 take 30-600 mg by mouth every twelve hours [facility] Mucus DM Extended Release 30-600 MG Oral Tablet Extended Release 12 Hour 01/27/2024 Provider: dextromethorphan hydrobromide 5 mg / guaiFENesin 100 mg oral granules (20 sources) Uncompetitive X-kufmsk-N-aspartate Receptor Antagonist, Sigma-1 Agonist Start: 08-15-19 24 Dextromethorphan -guaiFENesin 5-100 MG pack Every 12 [...] by mouth Twice a Week 0 Active fluticasone propionate 0.05 mg/actuat metered [...] Active 1 INH INHALATION Twice daily March 28, 2023 9:22am Start: 03-28-2023 End: [...] Oral Tablet 07/31/2023 Provider: Start: 06-22-2023 End: 11-09-2025 take 1 tablet by mouth once daily before breakfast levothyroxine (SYNTHROID) 112 MCG tablet Take 1 tablet by mouth every morning (before breakfast) 06/22/2023 11/09/2025 Active Comment on above: Take 1 tablet by emiliano th daily before breakfast. lithium carbonate 300 mg oral tablet (20 sources) Start: 04-23-2024 300 mg, Oral, ONCE, 1 dose, On Yasmine 04/23/24 at 2200, Maintain adequate fluid and sodium intake Start: 10-08-2023 Attalla Carbon ate 300 MG Oral Tablet 10/08/2023 Provider: Start: 08-20-2023 take 300 mg by mouth twice daily Attalla Carbonate Active 300 MG PO Twice daily 60 August 20, 2023 12:00am Start: 09-11-2022 End: 10-15-2023 Attalla Carbonate 150 MG Ora l Capsule 02/03/2023 - 10/15/2023 Provider: Start: 09-11-2022 take 150 mg by mouth once daily in the morning Attalla Carbonate Active 150 MG PO Every morning September 11, 2022 12:00am Start: 09-11-2022 End: 03-12-2023 take 300 mg by mouth once daily at bedtime Attalla Carbonate Discontinued 300 MG PO Daily at bedtime September 11, 2022 12:00am March 12, 2023 5:59am Start: 06-28-2018 End: 02-21-2023 Attalla Carbonate 300MG Oral Tablet 07/31/2018 - 02/21/2023 [...] by mouth twice daily in the evening Attalla Carbonate ER 300 MG 1 tablet am [...] mouth two times a day with meals. LORazepam 1 mg oral tablet (1 source) [...] Nonsteroidal Anti-inflammatory Drug Start: 06-18-19 End: 11-20-19 meloxicam (MOBIC) 15 MG tablet 08/11/2022 Active Comment on above: Take 15 mg by mouth once daily. 24 hr nicotine 0.875 mg/hr transdermal system (20 sources) Cholinergic Nicotinic Agonist Start: 12-16-19 Nicotine 21 MG/24HR Transdermal Patch 24 Hour 12/16/2023 Provider: Karla Clark CNP Start: 06-28-2018 End: 05-02-2020 NICOTINE 14 MG/24 HR [facility] 06/28/2018 - 05/02/2020 Provider: Start: 06-28-2018 End: [...] 06-12-2016 End: 07-23-2019 NICOTINE 14 MG/24 HR [facility] 06/12/2016 - 07/23/2019 Provider: Start: 06-12-2016 End: 06-12-2016 NICOTINE 14 MG/24 HR [facility] 06/12/2016 - 06/12/2016 Provider: Start: 06-12-2016 End: 06-12-2016 NICOTINE 14MG/24 HR [facility] 06/12/2016 - 06/12/2016 Provider: End: 03-06-2016 nicotine 14 mg/24 hr transde rmal patch 24 hour 03/06/2016 apply 1 patch (14 mg) by transdermal route once daily prn nystatin 161809 unt/ml topical cream (20 sources) Polyene Antifungal Start: 08-16-2022 nystatin (M YCOSTATIN) 991378 UNIT/GM cream Indications: Cutaneous candidiasis Apply topically 2 times daily. 30 g 1 08/16/2022 Active Start: 08-16-2022 End: 03-26-2023 Nystatin Active 1 APPLIC TOP ICAL Twice daily August 15, 2023 12:00am Nystatin Active Comment on above: Apply to affected ar ea two times a day. OLANZapine 5 mg oral tablet (20 sources) Atypical Antipsychotic Start: 11-02-2024 OLANZapine (ZYPREXA) 5 MG tablet 11/02/2024 Active Start: 10-04-2024 OLANZapine (ZY PREXA) 15 MG tablet 10/04/2024 Active Start: 08-20-2023 OLANZapine 15 MG Oral Tablet 09/16/2023 Provider: Start: 08-15-2023 End: 08-20-2023 take 2 tablets by mouth once daily at bedtime Olanzapine (Zyprexa) 5 mg tablet Discontinued 10 MG PO Daily at bedtime August 15, 2023 12:00am August 20, 2023 8:53am Start: 03-28-2023 End: 10-15-2023 OLANZapine 5 MG Oral Tablet 09/25/2023 - 10/15/2023 Provider: Start: 03-28-2023 End: 12-16-2023 take 5 mg [...] September 13, 2022 March 12, 2023 5:55am primidone [...] oral tablet (20 sources) Atypical Antipsychotic Start: 11-01-2024 QUEtiap ine (SEROQUEL) 25 MG tablet 1 tablet 3 times daily Half a tablet TID 11/01/2024 Active Start: 12-24-2023 take 12.5 mg by mout h three times daily Quetiapine Active 12.5 MG [...] 05-02-2020 SEROquel XR 200 MG OR TB24 0 06/28/2018 - 05/02/2020 Provider: Conversion Provider QUEtiapine [...] tablets (100 mg) by oral route [facility] End: 03-05-2017 take 1 tablet by [...] a day. Take 1/2 tablet twice daily rimegepant 75 mg disintegrating oral tablet (1 source) Start: 11-10-19 25 take 1 tablet by mouth once daily as needed rimegepant sulfate (NURTEC) 75 MG TBDP Indications: Intractable migraine with 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 Take 75 mg by mouth as needed (as needed , once a day for severe headche) 8 tablet 2 11/09/2024 Active risperiDONE 37.5 mg injection (20 sources) Atypical Antipsychotic Start: 09-13-19 24 RisperDAL Consta 37.5 MG Intramuscular Suspension Reconstituted [...] risperiDONE microspheres (RISPERDAL CONSTA) 37.5 MG injection (3 sources) risperiDONE microspheres (RISPERDAL CONSTA) 37.5 MG [...] Start: End: take 3 tablets by mouth twice daily topiramate (TOPAMAX) 25 MG tablet Indications: Intractable migraine with 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 Take 3 tablets by mouth 2 times daily 90 tablet 5 11/09/2024 02/07/2025 Active Start: 10-27-2020 End: 11-26-2020 take 3 tablets [...] 0 02/12/2019 Active Start: 11-06-2018 End: 02-28-2023 Topiramate 25 MG Oral Tablet 03/29/2022 - 02/28/2023 Provider: Karla Clark INTERNET 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 Comment on above: Take 25 mg by mouth once daily. Vitamin B-12 500 MCG Oral Tablet (4 sources) Start: 09-24-2023 Vitamin B-12 500 MCG Oral Tablet 09/24/2023 Provider: vitamin b12 0.5 mg oral tablet (20 sources) Vitamin B12 Start: 03-26-2023 cyanocobalamin (Vitamin B-12) 500 MCG tablet Daily 03/26/2023 Active Start: 03-26-2023 take 1 tablet by emiliano once daily Cyanocobalamin (Vitamin B-12) (Vitamin B-12) [...] 11/06/2018 Provider: Artificial Tears 0.1-0.3% Ophthalmic Solution (20 sources) Start: 11-06-2018 End: 03-31-2020 Artificial Tears [...] days B12 Folate 800-800 MCG Oral Capsule (20 sources) Start: 03-16-2020 End: 08-11-2020 B12 Folate 800-800 MCG Oral Capsule 03/16/2020 - 08/11/2020 Provider: Karla Clark CNP benzonatate 200 mg oral capsule (20 sources) Non-narcotic Antitussive Start: 02-28-2023 End: 05-22-2023 Benzonatate 200 MG Oral Capsule 02/28/2023 - 05/22/2023 Provider: Aaron Whitaker CNP Start: 11-03-2021 End: 05-22-2023 Tessalon Perles 100 MG Oral Capsule 12/20/2021 [...] 04-17-2018 End: 04-17-2018 BROMFED DM 2-30-10MG/5 ML [place] [facility] 04/17/2018 - 04/17/2018 Provider: Start: 07-30-2017 End: 05-02-2020 BROMFED DM 2-30-10 MG/5 ML M [facility] 07/30/2017 - 05/02/2020 Provider: Start: 07-30-2017 End: 07-30-2017 BROMFED DM 2-30-10 MG/5 ML M [facility] 07/30/2017 - 07/30/2017 Provider: Start: 07-30-2017 End: 07-30-2017 BROMFED DM 2-30-10MG/5 ML [place] 07/30/2017 - 07/30/2017 Provider: Start: 05-17-2017 End: 05-02-2020 BROMFED DM 2-30-10 MG/5 ML M [facility] 05/17/2017 - 05/02/2020 Provider: Start: 05-17-2017 End: 05-17-2017 BROMFED DM 2-30-10 MG/5 ML M [facility] 05/17/2017 - 05/17/2017 Provider: Start: 05-17-2017 End: 05-17-2017 BROMFED DM 2-30-10MG/5 ML [place] 05/17/2017 - 05/17/2017 Provider: Start: 05-22-2016 End: 07-23-2019 BROMFED DM 2-30-10 MG/5 ML M [facility] 05/22/2016 - 07/23/2019 Provider: Start: 05-22-2016 End: 05-22-2016 BROMFED DM 2-30-10 MG/5 ML M [facility] 05/22/2016 - 05/22/2016 Provider: Start: 05-22-2016 End: 05-22-2016 BROMFED DM 2-30-10MG/5 ML [place] 05/22/2016 - 05/22/2016 Provider: Start: 12-09-2015 End: 07-23-2019 BROMFED DM 2-30-10 MG/5 ML [facility] 12/09/2015 - 07/23/2019 Provider: Start: 12-09-2015 End: 12-09-2015 BROMFED DM 2-30-10 MG/5 ML [facility] 12/09/2015 - 12/09/2015 Provider: Start: 12-09-2015 End: 12-09-2015 BROMFED DM 2-30-10MG/5 ML [facility] 12/09/2015 - 12/09/2015 Provider: Symbicort 160-4.5 [...] Calcium Start: 11-26-2018 End: 03-16-2020 Calcium 600+D3 [id number] Oral Tablet 11/26/2018 - 03/16/2020 Provider: Karla Clark CNP Start: 11-26-2018 End: 11-21-2019 Calcium 600+D3 [id number] T Oral Tablet 11/26/2018 - 11/21/2019 Provider: Karla Clark CNP Start: 07-31-2018 Calcium 600+D3 [id number] Oral Tablet 07/31/2018 Provider: Start: 08-24-2012 take 2 tablets by mo uth once daily Calcium 600 D Tab 2 tab(s), Oral, Daily, Refill(s) 0 Start Date: 08/24/12 Status: Ordered CALCIUM 600 + D(3) 600 mg(1,500mg) -400 UNIT MISC (20 sources) Start: 06-28-2018 End: 06-28-2018 CALCIUM 600 + D(3) 600 mg(1,500mg) -400 UNIT [facility] 06/28/2018 - 06/28/2018 Provider: Start: 11-20-2017 End: [...] + D(3) 600 mg(1, 500mg) -400 UNIT [facility] 11/20/2017 - 05/02/2020 Provider: Start: 11-09-2016 End: 05-02-2020 CALCIUM 600 + D(3) 600 mg(1, 500mg) -400 UNIT [facility] 11/09/2016 - 05/02/2020 Provider: CALCIUM 600 + D(3) 600 mg(1,500mg)-400 UNIT MISC (3 sources) Start: 06-28-2018 End: 06-28-2018 CALCIUM 600 + D(3) 600 mg(1,500mg)-400 UNIT [facility] 06/28/2018 - 06/28/2018 Provider: Start: 11-20-2017 End: 11-20-2017 CALCIUM 600 + D(3) 600 mg(1, 500mg)-400 UNIT [facility] 11/20/2017 - 11/20/2017 Provider: Start: 11-09-2016 End: 11-09-2016 CALCIUM 600 + D(3) 600 mg(1, 500mg)-400 UNIT [facility] 11/09/2016 - 11/09/2016 Provider: CALCIUM 600 + D(3) 600 mg(1,500mg)-400 UNIT [facility] (6 sources) Start: 06-28-2018 End: 06-28-2018 CALCIUM 600 + D(3) 600 mg(1,500mg)-400 UNIT [facility] 06/28/2018 - 06/28/2018 Provider: Start: 11-20-2017 End: 11-20-2017 CALCIUM 600 + D(3) 600 mg(1, 500mg)-400 UNIT [facility] 11/20/2017 - 11/20/2017 Provider: Start: 11-09-2016 End: 11-09-2016 CALCIUM 600 + D(3) 600 mg(1, 500mg)-400 UNIT [facility] 11/09/2016 - 11/09/2016 Provider: Calcium 600+D 600-400 [...] 600+D High Potency 600-400 MG-UNIT Oral Tablet (20 sources) Start: 03-12-2019 End: 04-15-2019 Calcium 600+D High Potency 600-400 MG-UNIT Oral Tablet 03/12/2019 - 04/15/2019 Provider: Karla Clark CNP Calcium 600+D3 600-400 MG-UN IT Oral Tablet (20 sources) Start: 03-16-2020 End: 02-24-2021 Calcium 600+D3 600-400 MG-UN IT Oral Tablet 03/16/2020 - 02/24/2021 Provider: Karla Clark CNP CALCIUM CARBONATE 500 mg calcium (1,250 MG) MISC (17 sources) Start: 06-28-2018 End: 06-28-2018 CALCIUM CARBONATE 500 mg rl cium (1,250 MG) [facility] 06/28/2018 - 06/28/2018 Provider: CALCIUM CARBONATE 500 mg calcium (1,250 MG) MISC (20 sources) Start: 06-28-2018 End: 05-02-2020 CALCIUM CARBONATE 500 mg lr cium (1,250 MG) MISC 06/28/2018 - 05/02/2020 [...] Provider: Carpal Tunnel Wrist Stabiliz er Miscellaneous (20 sources) Start: 07-23-2019 End: 07-28-2021 Carpal Tunnel [...] cough / cold CORDICIDIN COUGH AND COLD DE SC (20 sources) Start: 08-21-2016 End: 08-21-2016 CORDICIDIN COUGH AND COLD DE SC 08/21/2016 - 08/21/2016 Provider: Start: 06-26-2016 End: 06-26-2016 CORDICIDIN COUGH AND COLD DE SC 06/26/2016 - 06/26/2016 Provider: Start: 04-10-2016 End: 07-23-2019 CORDICIDIN COUGH AND COLD DE SC 04/10/2016 - 07/23/2019 Provider: Start: 04-10-2016 End: 04-10-2016 CORDICIDIN COUGH AND COLD DE SC 04/10/2016 - 04/10/2016 Provider: CORDICIDIN COUGH AND COLD DE SC (20 sources) Start: 08-21-2016 End: 05-02-2020 CORDICIDIN COUGH AND COLD DE SC 08/21/2016 - 05/02/2020 Provider: Start: 08-21-2016 End: 08-21-2016 CORDICIDIN COUGH AND COLD DE SC 08/21/2016 - 08/21/2016 Provider: Start: 06-26-2016 End: 05-02-2020 CORDICIDIN COUGH AND COLD DE SC 06/26/2016 - 05/02/2020 Provider: Start: 06-26-2016 End: 06-26-2016 CORDICIDIN COUGH AND COLD DE SC 06/26/2016 - 06/26/2016 Provider: Start: 04-10-2016 End: 07-23-2019 CORDICIDIN COUGH AND COLD DE SC 04/10/2016 - 07/23/2019 Provider: Start: 04-10-2016 End: 04-10-2016 CORDICIDIN COUGH AND COLD DE SC 04/10/2016 - 04/10/2016 Provider: docusate sodium 100 mg oral capsule (20 sources) Start: 08-02-2021 End: 11-19-2022 Colace 100 MG Oral Capsule 12/20/2021 - 11/19/2022 Provider: Karla Clark CNP Comment on above: Take 100 mg by mouth once daily. doxycycline hyclate 100 mg oral capsule (20 [...] Start: 07-25-2017 End: 05-02-2020 DULERA 200-5 MCG[facility]AT [facility] 07/25/2017 - 05/02/2020 Provider: Start: 06-19-2016 End: 05-02-2020 DULERA 200-5 MCG/ACTUAT [facility] 06/19/2016 - 05/02/2020 Provider: Erythromycin (11 sources) Macrolide, Macrolide Antimicrobial Start: 06-28-2018 End: 06-28-2018 ERYTHROMYCIN 5 mg/gram(0.5 %) [facility] 06/28/2018 - 06/28/2018 Provider: erythromycin 5 m [...] End: 06-28-2018 ERYTHROMYCIN 5 mg/gram (0.5 %) [facility] 06/28/2018 - 06/28/2018 Provider: ERYTHROMYCIN 5 mg/gram (0.5 %) MISC (20 sources) Start: 06-28-2018 End: 05-02-2020 ERYTHROMYCIN 5 mg/gram (0.5 %) [facility] 06/28/2018 - 05/02/2020 Provider: eszopiclone 3 mg [...] by oral route once daily at bedtime famotidine 20 mg oral tablet (20 sources) Histamine-2 Receptor Antagonist Start: 09-22-2019 End: 11-19-2022 Famotidine 20 MG Oral Tablet 09/14/2020 - 12/20/2021 Provider: Karla Clark CNP Start: 09-22-2019 End: 11-19-2022 Famotidine 20 MG Oral Tablet 09/14/2020 - 12/20/2021 Provider: Karla Clark CNP Famotidine (PEPC ID PO) Take by mouth OTC Pepcid daily. 0 Active Comment on above: Take 20 mg by mouth two times a day. FLONASE ALLERGY RELIEF 50 MCG/ACTUAT MISC (20 [...] Start: 08-15-2023 take 1 capsule by mo [facility] once daily Lactobacillus Acidophilus (Acidophilus) capsule Active [...] Or al Capsule 07/31/2018 Provider: lactobacillus acidophilus [id number] unt / pectin 10 mg oral capsule (18 sources) Start: 03-26-2023 End: 03-26-2023 take 1 capsule by mouth once daily Acidophilus-Pectin, [place] (Acidophilus Probiotic) 100 million cell-10 mg Capsule Discontinued 1 CAP PO Daily March 26, 2023 12:00am March 26, 2023 1:21am Start: 02-21-2017 [facility] Acidophilus Probiotic 100 million cell-10 mg oral capsule 02/21/2017 take 1 capsule by oral route twice daily acidophilus-pect in, citrus 100 million cell-10 mg cap Take by mouth. 0 Active Comment on above: Take by mouth. 10 ml lidocaine hydrochloride 10 mg/ml injection (1 source) Antiarrhythmic, Amide Local Anesthetic Start: 06-08-2020 End: 06-08-2020 lidocaine PF 1 % injection loratadine 10 mg oral tablet (20 sources) Start: 06-28-2018 End: 11-19-2022 Claritin 10 MG Oral Tablet 11/19/2019 - 04/14/2020 Provider: Karla Clark CNP Loratadine (CLAR ITIN PO) Take by mouth daily Active Loratadine (CLAR ITIN PO) Take by mouth daily 0 Active Comment on above: Take 10 mg by mouth once daily. Medicated Chest Rub (7 sources) Start: 05-17-2017 [...] once may repeat after 4 hours prn nitrofurantoin, macrocrystals 25 mg / nitrofurantoin, [...] 10/02 - 07/23/2019 Provider: polyethylene glycol 3350 38062 mg powder for oral solution (20 sources) Osmotic Laxative Start: 11-11-2019 End: 05-22-2023 Polyethylene Glycol 3350 17 GM/SCOOP Oral Powder 11/15/2020 - 12/20/2021 Provider: Karla Clark CNP Start: 07-16-2017 End: 07-16-2017 CLEARLAX 17GRAM/DOSE MISC [...] Start: 06-28-2018 End: 06-28-2018 PROPRANOLOL 160 MG MISC 06/04 - 06/28/2018 Provider: Start: 06-28-2018 End: 06-28-2018 PROPRANOLOL 160MG MISC 06/28 - 06/28/2018 Provider: Start: 05-08-2018 take 1 capsule by mo [facility] once daily propranolol 60 mg oral capsule,extended [...] Start: 02-21-2016 End: 07-23-2019 PROPRANOLOL 80 MG [facility] 02/20 - 07/23/2019 Provider: Start: 02-21-2016 End: [...] Start: 09-22-2015 End: 07-23-2019 PROPRANOLOL 80 [facility] 09/21 - 07/23/2019 Provider: Start: 09-22-2015 End: [...] Provider: RISPERDAL CONSTA 37.5 MG/2 ML MISC (20 sources) Start: 06-28-2018 End: 05-02-2020 RISPERDAL CONSTA [...] Provider: Karla Clark CNP Spacer/Aero-Holding Chambers Device (20 sources) Start: 04-23-2019 End: 05-23-2019 Spacer/Aero-Holding Chambers [...] - 06/12/2016 Provider: SYMBICORT 160-4.5 MCG/ACTUAT MISC (20 sources) Start: 06-12-2016 End: 07-23-2019 SYMBICORT 160-4.5 MCG/ACTUAT MISC 06/12/2016 - 07/23/2019 Provider: traMADol (20 sources) Opioid Agonist Start: 06-28-2018 End: 05-02-2020 TRAMADOL 50 mg MISC 06/28/2018 - 05/02/2020 Provider: Start: 06-28-2018 End: 06-28-2018 TRAMADOL 50 mg MISC 06/28/19 - 06/28/2018 Provider: take 1 tablet by [...] TUSSIN DM 10-100 MG/5 ML MIS C (20 sources) Start: 09-22-2015 End: 07-23-2019 TUSSIN DM [...] Problem Classification Problem Date Documented Date Episodic/Chronic Administrative/social admission (3 sources) Counseling procedure with explicit context; Translations: [Tobacco abuse counseling] Onset: 5 12-17-2024 Episodic Asthma (20 sources) Asthma; Translations: [Asthma, unspecified type, unspecified] Onset: 9 06-03-2018 Chronic Asthma (2 sources) Asthma; Translations: [Respiratory system agent (substance)] Onset: 9 Chronic kidney disease (8 sources) Chronic kidney disease stage 2; Translations: [Chronic kidney disease, stage 2 (mild)] Onset: 4 06-21-2023 Chronic Chronic obstructive pulmonary disease and bronchiectasis (20 sources) Chronic airway obstruction, not elsewhere classified; Translations: [Chronic obstructive lung disease] Onset: 4 05-04-2014 Chronic Conduction disorders (3 sources) Right bundle branch block; Translations: [Unspecified right bundle-branch block] Onset: 5 12-17-2024 Chronic Coronary atherosclerosis and other heart disease (4 sources) History of myocardial infarction; Translations: [Old myocardial infarction] Onset: 5 Chronic Diabetes mellitus without complication (1 source) Diabetes mellitus 08-14-2013 Chronic Diabetes mellitus without complication (1 source) Prediabetes; Translations: [Prediabetes] Onset: 3 Episodic E Codes: Fall (1 source) Unspecified fall, initial encounter; Translations: [UNSPECIFIED FALL INITIAL ENCOUNTER] Onset: 3 Episodic Esophageal disorders (9 sources) Gastro-esophageal reflux disease without esophagitis; Translations: [Gastroesophageal reflux disease] Onset: 3 06-18-2023 Chronic Essential hypertension (20 sources) Unspecified essential hypertension; Translations: [Hypertensive disorder] Onset: 6 03-13-2023 Chronic Headache, including migraine (20 sources) Migraine, unspecified, without mention of intractable migraine without mention of status migrainosus; Translations: [Migraine] Onset: 6 07-09-2016 Chronic Miscellaneous mental health disorders (2 sources) Emotional state finding; Translations: [Mental disorder, not otherwise specified] 02-18-2024 Chronic Mood disorders (20 sources) Bipolar disorder; Translations: [Depressive disorder] Onset: 4 05-04-2014 Chronic Mood disorders (1 source) Major depressive disorder, single episode, unspecified; Translations: [Major depressive disorder, single episode, unspecified] Onset: 9 Mycoses (20 sources) Candidiasis of other urogenital sites; Translations: [Candidiasis of unspecified site] Onset: 6 Episodic Nonmalignant breast conditions (1 source) Mammary duct ectasia; 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, 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 Nonmalignant breast conditions (2 sources) Lesion of breast; Translations: [Breast lump] Episodic Nonspecific chest pain (20 sources) Atypical chest pain; Translations: [Chest pain] Onset: 4 Resolved: 3 05-04-2014 Episodic Other aftercare (1 source) Other longterm (current) drug therapy; Translations: [OTH IMAGE ARCHIVIST CURRENT DRUG THERAPY] Onset: 3 Episodic Other aftercare (2 sources) On lithium; Translations: [Other longterm (current) drug therapy] 02-18-2024 Episodic Other connective tissue disease (3 sources) Pain in right arm; Translations: [PAIN IN RIGHT ARM] Onset: 3 Episodic Other connective tissue disease (1 source) Neurological symptom; Translations: [Unspecified symptoms and signs involving the nervous system] 04-23-2024 Episodic Other connective tissue disease (1 source) Pain in right foot; Translations: [Right foot pain] Other ear and sense organ disorders (1 source) Otalgia; Translations: [Otalgia, unspecified] Onset: 3 Episodic Other endocrine disorders (1 source) Hyperprolactinemia; Translations: [Hyperprolactinemia (HCC)] Chronic Other hereditary and degenerative nervous system conditions (3 sources) Tremor; Translations: [Essential and other specified forms of tremor] Onset: 4 Chronic Other hereditary and degenerative nervous system conditions (2 sources) Tardive dyskinesia; Translations: [Drug induced subacute dyskinesia] 02-18-2024 Episodic Other lower respiratory disease (6 sources) Other symptoms involving respiratory system and chest Onset: 6 Episodic Other nervous system disorders (6 sources) Carpal tunnel syndrome Onset: 7 Chronic Other non-traumatic joint disorders (1 source) Pain in right shoulder Episodic Other non-traumatic joint disorders (2 sources) Pain in right knee; Translations: [Right knee pain] 10-31-2023 Episodic Other nutritional; endocrine; and metabolic disorders (20 sources) Overweight; Translations: [Overweight] Onset: 9 Chronic Other nutritional; endocrine; and metabolic disorders (10 sources) Overweight; Translations: [Overweight] Onset: 9 Episodic Other screening for suspected conditions (not mental disorders or infectious disease) (20 sources) Electrocardiogram abnormal; Translations: [Other screening mammogram] Onset: 4 Resolved: 3 05-04-2014 Episodic Other upper respiratory disease (20 sources) Allergic rhinitis, cause unspecified Onset: 6 Chronic Other upper respiratory infections (20 sources) Unspecified sinusitis (chronic) Onset: 6 Chronic Residual codes; unclassified (9 sources) Insomnia with sleep apnea; Translations: [Insomnia with sleep apnea, unspecified] Onset: 9 Chronic Residual codes; unclassified (20 sources) Tobacco user; Translations: [Tobacco abuse] Onset: 4 05-04-2014 Chronic Residual codes; unclassified (18 sources) Tobacco use; Translations: [Tobacco user] Onset: 9 06-03-2018 Episodic Residual codes; unclassified (1 source) Past history of procedure; Translations: [Other specified postprocedural states] Episodic Residual codes; unclassified (3 sources) Other specified postprocedural states Episodic Schizophrenia and other psychotic disorders (20 sources) Schizoaffective disorder; Translations: [Schizoaffective Disorder] Onset: 9 Chronic Spondylosis; intervertebral disc disorders; other back problems (1 source) Lumbar radiculopathy; Translations: [Radiculopathy, lumbar region] 02-25-2024 Episodic Sprains and strains (3 sources) Strain of muscle(s) and tendon(s) of the rotator cuff of right shoulder, subsequent encounter Episodic Substance-related disorders (20 sources) Tobacco dependence syndrome; Translations: [Tobacco use disorder] Onset: 6 Chronic Thyroid disorders (20 sources) Non-toxic multinodular goiter; Translations: [Nontoxic multinodular goiter] Onset: 3 06-21-2023 Chronic Unclassified (6 sources) Body Mass Index 30.0-30.9, adult Onset: 8 Chronic Unclassified (13 sources) Parkinson's disease; Translations: [Parkinson's disease] Onset: 4 03-13-2023 Chronic Unclassified (20 sources) Body Mass Index 29.0-29.9, adult; Translations: [Body Mass Index 28.0-28.9, adult] Onset: 7 Episodic Unclassified (20 sources) Finding of body mass index; Translations: [Body Mass Index] Onset: 9 Unclassified (2 sources) HIV screening; Translations: [Visit For: Screening Exam For Human Immunodeficiency Virus] Onset: 0 Unclassified (1 source) Transport unavailable; Translations: [Transportation unavailable] 04-23-2024 Unclassified (1 source) Transportation insecurity; Translations: [Transportation insecurity] Onset: 4 Past or Other Problems Problem Classification Problem Date Documented Da te Episodic/Chronic Abdominal pain (20 sources) Flank pain; Translations: [Unspecified abdominal pain] Onset: 08-27-2023 03-13-2023 Episodic Acute and unspecified renal failure (17 sources) Acute renal failure syndrome; Translations: [Acute kidney failure, unspecified] Onset: 08-27-2023 03-26-2023 Episodic Acute bronchitis (15 sources) Acute bronchitis; Translations: [Acute bronchitis, unspecified] Onset: 11-19-2022 Resolved: 10-04-2023 11-19-2022 Episodic Chronic obstructive pulmonary disease and bronchiectasis (20 sources) Chronic obstructive pulmonary disease and bronchiectasis; Translations: [Fagerstrom Score] Onset: 03-31-2019 Conditions associated with dizziness or vertigo (6 sources) Dizziness and giddiness Onset: 02-21-2016 Episodic Fracture of upper limb (20 sources) Other displaced fracture of upper end of right humerus, initial encounter for closed fracture; Translations: [Fracture of upper end of humerus] Onset: 09-17-2022 Episodic Genitourinary symptoms and ill-defined conditions (5 sources) Dysuria; Translations: [Dysuria] Onset: 03-21-2023 Episodic Headache, including migraine (6 sources) Headache Onset: 01-01-2017 Episodic Immunizations and screening for infectious disease (20 sources) Screening examination for pulmonary tuberculosis; Translations: [Need for prophylactic vaccination and inoculation against influenza] Onset: 03-06-2016 Episodic Inflammatory diseases of female pelvic organs (12 sources) Vaginitis and vulvovaginitis, unspecified Onset: 12-06-2016 Episodic Malaise and fatigue (18 sources) Other malaise and fatigue Onset: 09-08-2015 Episodic Medical examination/evaluation (3 sources) Routine general medical examination at a health care facility; Translations: [Laboratory examination, unspecified] Onset: 03-05-2017 Episodic Nausea and vomiting (13 sources) Nausea and vomiting; Translations: [Nausea with vomiting, unspecified] Onset: 08-27-2023 03-26-2023 Episodic Neoplasms of unspecified nature or uncertain behavior (12 sources) Neoplasm of uncertain behavior of skin; Translations: [Neoplastic disease] Onset: 05-14-2017 07-16-2023 Episodic Other aftercare (1 source) Encounter for other plastic and reconstructive surgery following medical procedure or healed injury; Translations: [Encounter for other plastic and reconstructive surgery following medical procedure or healed injury] Onset: 08-20-2023 Episodic Other connective tissue disease (7 sources) Pain in right lower limb; Translations: [Pain in limb] Onset: 06-18-2022 Episodic Other connective tissue disease (15 sources) Pain in upper arm; Translations: [Pain in right upper arm] Onset: 11-19-2022 Resolved: 10-04-2023 11-19-2022 Episodic Other connective tissue disease (3 sources) Pain in right arm; Translations: [Upper arm part (body structure)] Onset: 09-18-2022 Episodic Other connective tissue disease (1 source) Unspecified symptoms and signs involving the nervous system; Translations: [Unspecified symptoms and signs involving the nervous system] Onset: 04-23-2024 Episodic Other ear and sense organ disorders (6 sources) Pain of ear structure; Translations: [Otalgia, unspecified] Onset: 06-18-2022 Episodic Other female genital disorders (12 sources) Leukorrhea, not specified as infective Onset: 09-08-2015 Episodic Other gastrointestinal disorders (9 sources) Dysphagia; Translations: [Dysphagia, unspecified] Onset: 09-11-2018 Episodic Other lower respiratory disease (19 sources) Cough; Translations: [Other symptoms involving respiratory system and chest] Onset: 04-10-2016 Episodic Other lower respiratory disease (15 sources) Cough; Translations: [Cough] Onset: 07-28-2021 Episodic Other nervous system disorders (8 sources) Personal history of benign neoplasm of the brain; Translations: [Abnormality of gait] Onset: 08-01-2016 Episodic Other nervous system disorders (5 sources) Disturbance of skin sensation Onset: 10-08-2017 Episodic Other nervous system disorders (5 sources) Abnormality of gait Onset: 08-01-2016 Episodic Other nervous system disorders (1 source) Other acute postprocedural pain; Translations: [Postoperative pain] Onset: 06-18-2023 Episodic Other nervous system disorders (4 sources) Staggering gait; Translations: [Abnormality of gait] Onset: 11-15-2023 Episodic Other nervous system disorders (5 sources) Abnormal gait; Translations: [Abnormality of gait] Onset: 01-27-2024 02-18-2024 Episodic Other non-traumatic joint disorders (19 sources) Pain in joint, lower leg; Translations: [Pain in joint, ankle and foot] Onset: 08-21-2016 Episodic Other non-traumatic joint disorders (5 sources) Pain in joint, ankle and foot Onset: 12-19-2017 Episodic Other non-traumatic joint disorders (6 sources) Arthropathy of knee joint; Translations: [Pain] Onset: 08-27-2022 Episodic Other nutritional; endocrine; and metabolic disorders (2 sources) Body Mass Index 28.0-28.9, adult Onset: 01-01-2017 Episodic Other nutritional; endocrine; and metabolic disorders (20 sources) Finding of body mass index; Translations: [Body mass index (observable entity)] Onset: 09-04-2018 Episodic Other upper respiratory infections (14 sources) Acute pharyngitis; Translations: [Pharyngitis Acute] Onset: 04-15-2019 Episodic Residual codes; unclassified (20 sources) Tobacco user; Translations: [Tobacco use] Onset: 05-04-2014 05-04-2014 Episodic Residual codes; unclassified (1 source) Pain, unspecified; Translations: [Pain, unspecified] Onset: 05-31-2024 Episodic Schizophrenia and other psychotic disorders (16 sources) Brief psychotic disorder; Translations: [Acute psychosis] Onset: 08-27-2023 08-15-2023 Episodic Unclassified (18 sources) Patient encounter status; Translations: [Colon cancer screening] Onset: 11-30-2013 Resolved: 03-31-2018 03-31-2018 Unclassified (13 sources) Intervention & Counseling Cessation of Tobacco Use 3-10 Min.; Translations: [Intervention & Counseling Cessation of Tobacco Use 3-10 Min.] Onset: 03-31-2019 Unclassified (9 sources) Patient status finding; Translations: [Injury assessment] Onset: 03-31-2019 Unclassified (1 source) Bipolar (qualifier value) 10-12-2009 Unclassified (3 sources) Onset: 08-16-2022 08-16-2022 Urinary tract infections (12 sources) Urinary tract infection, site not specified Onset: 10-25-2015 Episodic Results Test Name Value Interpretation Reference Range Facility Cardiac echo study Procedure on 12-17-2024 Aortic Sinus Valsalva 2.9 cm [facility] Aortic Sinus Valsalva Index 1.72 cm/m2 [facility] Ascending Aorta 2.7 cm [facility] Aorta Index 1.6 cm/m2 [facility] AV Cusp Mmode 1.4 cm [facility] AV Mean Gradient 2 mmHg [facility] AV Mean Velocity 0.6 m/s [facility] AV Peak Gradient 3 mmHg [facility] AV Peak Velocity 0.9 m/s [facility] AV Velocity Ratio 1 [facility] AV VTI 19.1 cm [facility] Body surface area Derived from formula 1.72 m2 [facility] E/E' Lateral 4.84 [facility] EF BP 64 % 55 - 100 % [facility] EF Physician 65 % [facility] Est. RA Pressure 3 mmHg [facility] Fractional Shortening 2D 16 % 28 - 44 % [facility] Interpretation and review of laboratory results Abnormal [facility] IVSd 1.7 cm Abnormal 0.6 - 0.9 cm [facility] LA Area 2C 11.2 cm2 [facility] LA Area 4C 13 cm2 [facility] LA Major [place] 4.5 [facility] [employer] [facility] [place] Minor [place] 4.6 cm [facility] [employer] [facility] [place] Volume BP 26 mL 22 - 52 mL [facility] [employer] [facility] [place] Volume Index BP 15 ml/m2 Abnormal 16 - 34 ml/m2 [facility] [employer] [facility] [place] Volume Index MOD A2C 13 ml/m2 Abnormal 16 - 34 ml/m2 [facility] [employer] [place] Volume Index MOD A4C 18 ml/m2 16 - 34 ml/m2 [facility] [employer] [place] Volume MOD A2C 22 mL 22 - 52 mL [facility] [employer] [place] Volume MOD A4C 31 mL 22 - 52 mL [facility] [employer] LV E' Lateral Velocity 6.2 cm/s [facility] [employer] LV EDV A2C 42 mL [facility] [employer] [place] EDV A4C 49 mL [facility] [employer] [place] EDV Index A2C 25 mL/m2 [facility] [employer] [facility] EDV Index A4C 29 mL/m2 [facility] [employer] LV Ejection Fraction A2C 58 % [facility] [employer] LV Ejection Fraction A4C 69 % [facility] ESV A2C 18 mL [facility] [employer] LV ESV A4C 15 mL [facility] [employer] [facility] ESV Index A2C 11 mL/m2 [facility] [employer] [facility] ESV Index A4C 9 mL/m2 [facility] [employer] [place] Mass 2D 171.6 g Abnormal 67 - 162 g [facility] [employer] LV Mass 2D Index 101.6 g/m2 Abnormal 43 - 95 g/m2 [facility] [employer] LV RWT Ratio 0.81 [facility] [employer] [facility] LVIDd 3.2 cm Abnormal 3.9 - 5.3 cm [facility] LVIDd Index 1.89 cm/m2 [facility] [employer] LVIDs 2.7 cm [facility] [employer] LVIDs Index 1.6 cm/m2 [facility] [employer] LVOT Mean Gradient 1 mmHg [facility] [employer] LVOT Peak Gradient 3 mmHg [facility] [employer] LVOT Peak Velocity 0.9 m/s [facility] [employer] LVOT VTI 16.1 cm [facility] [employer] LVOT:AV VTI Index 0.84 [facility] [employer] LVPWd 1.3 cm Abnormal 0.6 - 0.9 cm [facility] [employer] MV A Velocity 0.78 m/s [facility] Estify MV E Velocity 0.3 m/s [facility] Estify MV E Wave Deceleration Time 250 ms [facility] Estify MV E/A 0.38 [facility] Estify PV Max Velocity 0.7 m/s Charly [facility] Estify PV Peak Gradient 2 mmHg [facility] RVSP 14 mmHg [facility] Estify Sinotubular Junction 2.5 cm [facility] Estify TAPSE 2.2 cm 1.7 cm [facility] Estify TR Max Velocity 1.67 m/s [facility] rs [employer] Estify TR Peak Gradient 11 mmHg [facility] [employer] Estify Left Ventricle: Norm al left ventricular systolic function with a visually [...] Image quality: adequate. No contrast was given. [facility] CV CPACS [facility] Estify Radiology Study observation (narrative) [facility] [employer] Estify APTTon 04-23-2024 aPTT Coag (Bld) [Time] 24.6 s Kwesi n [facility] Comment on above: IV Heparin Therapy Range: 66.0-92.0 sec aPTT Coag (Bld) [Time] 24.6 s Normal 23.0-36.5 [facility] Comment on above: Result Comment: IV Heparin Therapy Range: 66.0-92.0 sec Performed By: #### P T, CDP, TROPI, PTT, CP #### [facility] Medication Review [address] [place] [address] [employer] Eng[employer]ver: Tej Locke MD BUN, POCon 04-23-2024 Urea nitrogen [Mass/Vol] 25 mg/dL Normal 8- [facility] CALCIUM, IONIC (POC)on 04-23 Calcium.ionized (Bld) [Moles/Vol] 1.28 mmol/L 1.15 - 1.33 mmol/L [facility] CBC with Auto Differentialon 04-23-2024 Basophils (Bld) [#/Vol] 0.04 10*3/uL [facility] Basophils/100 WBC (Bld) 1 % 0 - 2 % B on [facility] Eosinophils (Bld) [#/Vol] 0.20 10*3/uL [facility] Eosinophils/100 WBC (Bld) 4 % 1 - 4 % [facility] Erythrocyte distribution width (RBC) [Ratio] 12.9 % 11.8 - 14.4 % [facility] Hematocrit (Bld) [Volume fraction] 38.4 % 36.3 - 47.1 % [facility] Hemoglobin (Bld) [Mass/Vol] 12.0 g/dL 11.9 - 15.1 g/dL [facility] Immature granulocytes (Bld) [#/Vol] [facility] Immature granulocytes/100 WBC (Bld) 0 % 0 [facility] Interpretation and review of laboratory results Abnormal [facility] Lymphocytes/100 WBC (Bld) 30 % 24 - 43 % [facility] Lymphocytes/100 WBC (Bld) 1.53 % [facility] MCH (RBC) [Entitic mass] 32.3 pg 25.2 - 33.5 pg [facility] MCHC (RBC) [Mass/Vol] 31.3 g/dL 28.4 - 34.8 g/dL [facility] MCV (RBC) [Entitic vol] 103.5 fL High 82.6 - 102.9 fL [facility] Monocytes/100 WBC (Bld) 10 % 3 - 12 % B on [facility] Monocytes/100 WBC (Bld) 0.51 % B on [facility] Neutrophils/100 WBC (Bld) 55 % 36 - 65 % [facility] Nucleated RBC/100 WBC (Bld) [Ratio] 0.0 % 0.0 per 100 WBC [facility] Platelet mean volume (Bld) [Entitic vol] 10.4 fL 8.1 - 13.5 fL [facility] Platelets (Bld) [#/Vol] 223 10*3/uL [facility] RBC (Bld) [#/Vol] 3.71 10*6/uL Low 3.95 - 5.11 m/uL [facility] RBC (Bld) [#/Vol] MACROCYTOSIS PRESENT [facility] Segmented neutrophils/100 WBC (Bld) 2.83 % [facility] WBC other (Bld) [#/Vol] 5.1 B on [facility] CBC with Diffon 04-23-2024 Abs. Basophil 0.04 k/uL Normal 0.00-0.20 [facility] Comment on above: Performed By: #### P T, CDP, TROPI, PTT, CP #### [employer] [address] [place] [address] [phone] [employer]: Tej Locke MD Abs.Imm.Granulocyte <0.03 Normal 0.00-0.30 [facility] Comment on above: Performed By: #### P T, CDP, TROPI, PTT, CP #### [employer] [address] [place] [address] [phone] [employer]ver: Tej Locke MD Abs.Neutrophil (Seg) 2.83 k/uL Normal 1.50-8.10 [facility] Comment on above: Performed By: #### P T, CDP, TROPI, PTT, CP #### [address] [address] [employer]ver: Tej Locke MD Basophils/100 WBC (Bld) 1 % Normal 0-2 M [facility] Comment on above: Performed By: #### P T, CDP, TROPI, PTT, CP #### [place] [address] [employer]ver: Tej Locke MD Eosinophils (Bld) [#/Vol] 0.20 10*3/uL Normal 0.00-0.44 [facility] Comment on above: Performed By: #### P T, CDP, TROPI, PTT, CP #### [place] [address] [employer] Eng[employer]ver: Tej Locke MD Eosinophils/100 WBC (Bld) 4 % Normal 1-4 [facility] Comment on above: Performed By: #### P T, CDP, TROPI, PTT, CP #### [place] [address] [employer]ver: Tej Locke MD Erythrocyte distribution width (RBC) [Ratio] 12.9 % Normal 11.8-14.4 [facility] Comment on above: Performed By: #### P T, CDP, TROPI, PTT, CP #### [place] [address] [employer]ver: Tej Locke MD Hematocrit (Bld) [Volume fraction] 38.4 % Normal 36.3-47.1 [facility] Comment on above: Performed By: #### P T, CDP, TROPI, PTT, CP #### [place] [address] [employer] Eng[employer]ver: Tej Locke MD Hemoglobin (Bld) [Mass/Vol] 12.0 g/dL Normal 11.9-15.1 [facility] Comment on above: Performed By: #### P T, CDP, TROPI, PTT, CP #### [address] [address] [employer]ver: Tej Locke MD Immature granulocytes/100 WBC (Bld) 0 % Normal 0 [facility] Comment on above: Performed By: #### P T, CDP, TROPI, PTT, CP #### [place] [address] [employer]ver: Tej Locke MD Lymphocytes (Bld) [#/Vol] 1.53 10*3/uL Normal 1.10-3.70 [facility] Comment on above: Performed By: #### P T, CDP, TROPI, PTT, CP #### [place] [address] [employer] Eng[employer]ver: Tej Locke MD Lymphocytes/100 WBC (Bld) 30 % Normal 24-43 [facility] Comment on above: Performed By: #### P T, CDP, TROPI, PTT, CP #### [address] [address] [employer] Eng[employer]ver: Tej Locke MD MCH (RBC) [Entitic mass] 32.3 pg Normal 25.2-33.5 [facility] Comment on above: Performed By: #### P T, CDP, TROPI, PTT, CP #### [place] [address] [employer] Eng[employer]ver: Tej Locke MD MCHC (RBC) [Mass/Vol] 31.3 g/dL Normal 28.4-34.8 [facility] Comment on above: Performed By: #### P T, CDP, TROPI, PTT, CP #### [address] [place] [address] [employer] Eng[employer]ver: Tej Locke MD MCV (RBC) [Entitic vol] 103.5 fL High 82.6-102.9 M [facility] Comment on above: Performed By: #### P T, CDP, TROPI, PTT, CP #### [address] [address] [employer]ver: Tej Locke MD Monocytes (Bld) [#/Vol] 0.51 10*3/uL Normal 0.10-1.20 [facility] Comment on above: Performed By: #### P T, CDP, TROPI, PTT, CP #### [address] [address] [employer] Eng[employer]ver: Tej Locke MD Monocytes/100 WBC (Bld) 10 % Normal 3-12 M [facility] Comment on above: Performed By: #### P T, CDP, TROPI, PTT, CP #### [address] [address] [employer] Engraver: Tej Locke MD Neutrophil (Seg) 55 % Normal 36-65 [facility] Comment on above: Performed By: #### P T, CDP, TROPI, PTT, CP #### [address] [address] [employer] Eng[employer]ver: Tej Locke MD NRBC Automated 0.0 per 100 WBC Normal 0.0 [facility] Comment on above: Performed By: #### P T, CDP, TROPI, PTT, CP #### [address] [address] [employer] Eng[employer]ver: Tej Locke MD Platelet mean volume (Bld) [Entitic vol] 10.4 fL Normal 8.1-13.5 [facility] Comment on above: Performed By: #### P T, CDP, TROPI, PTT, CP #### [address] [address] [employer]ver: Tej Locke MD Platelets (Bld) [#/Vol] 223 10*3/uL Normal 138-453 [facility] Comment on above: Performed By: #### P T, CDP, TROPI, PTT, CP #### [address] [address] [employer] Eng[employer]ver: Tej Locke MD RBC (Bld) [#/Vol] 3.71 10*6/uL Low 3.95-5.11 [facility] Comment on above: Performed By: #### P T, CDP, TROPI, PTT, CP #### [address] [address] [employer]ver: Tej Locke MD RBC morphology finding Nom (Bld) MACROCYTOSIS PRESENT Normal [facility] Comment on above: Performed By: #### P T, CDP, TROPI, PTT, CP #### [address] [address] [employer] Eng[employer]ver: Tej Locke MD WBC (Bld) [#/Vol] 5.1 10*3/uL Normal 3.5-11.3 [facility] Comment on above: Performed By: #### P T, CDP, TROPI, PTT, CP #### [address] [address] [employer] Engraver: Tej Locke MD CT HEAD WO CONTRASTon [...] for review. This scan was analyzed using [email or web address] contact LVO. Identification of suspected findings is [...] Yandel Walters DO 04/23/24 Final result Normal [facility] CT Head WO contraston 2023 Radiology Study observation (narrative) Charly sanchez [facility] CTA HEAD NECK W CONTRASTon 1 06-23-2023 [...] for review. This scan was analyzed using [email or web address] contact LVO. Identification of suspected findings is [...] Yandel Walters DO 04/23/24 Final result Normal [facility] CTA Head vessels and Neck ve ssels W contrast Hayden 04-23-2024 Radiology Study observation (narrative) Charly sanchez [facility] Calcium, Ionic (POC)on 04-23 Calcium [Moles/Vol] 1.28 mmol/L Normal 1.15-1.33 [facility] Comp Metabolic Profon 2023 Albumin [Mass/Vol] 4.2 g/dL Normal 3.5-5.2 [facility] Comment on above: Performed By: #### P T, CDP, TROPI, PTT, CP #### [employer] [address] [place], [place] [phone] [employer] Engraver: Tej Locke MD Albumin/Glob Ratio 1.9 Normal 1.0-2.5 [facility] Comment on above: Performed By: #### P T, CDP, TROPI, PTT, CP #### [address] [address] [employer] Engraver: Tej Locke MD Alkaline Phos 116 U/L High 35-104 [facility] Comment on above: Performed By: #### P T, CDP, TROPI, PTT, CP #### [address] [address] [employer] Eng[employer]ver: Tej Locke MD ALT [Catalytic activity/Vol] 19 U/L Normal 10-35 [facility] Comment on above: Performed By: #### P T, CDP, TROPI, PTT, CP #### [address] [address] [employer] Eng[employer]ver: Tej Locke MD Anion gap [Moles/Vol] 9 mmol/L Normal 9-16 [facility] Comment on above: Performed By: #### P T, CDP, TROPI, PTT, CP #### [address] [address] [employer] Eng[employer]ver: Tej Locke MD AST [Catalytic activity/Vol] 17 U/L Normal 10-35 [facility] Comment on above: Performed By: #### P T, CDP, TROPI, PTT, CP #### [address] [address] [employer] Eng[employer]ver: Tej Locke MD Bilirubin [Mass/Vol] mg/dL Normal 0.0-1.2 [facility] Comment on above: Performed By: #### P T, CDP, TROPI, PTT, CP #### [address] [address] [employer] Eng[employer]ver: Tej Locke MD Calcium [Mass/Vol] 9.6 mg/dL Normal 8.6-10.4 [facility] Comment on above: Performed By: #### P T, CDP, TROPI, PTT, CP #### [facility] [place] [address] [employer] Eng[employer]ver: Tej Locke MD Chloride [Moles/Vol] 109 mmol/L High 98-107 [facility] Comment on above: Performed By: #### P T, CDP, TROPI, PTT, CP #### [facility] [address] [place] [address] [employer] Eng[employer]ver: Tej Locke MD CO2 [Moles/Vol] 22 mmol/L Normal 20-31 [facility] Comment on above: Performed By: #### P T, CDP, TROPI, PTT, CP #### [facility] Medication Review [address] [place] [phone] [employer]ver: Tej Locke MD Creatinine [Mass/Vol] 1.5 mg/dL High 0.6-0.9 [facility] Comment on above: Performed By: #### P T, CDP, TROPI, PTT, CP #### [address] [address] [employer] Eng[employer]ver: Tej Locke MD GFR/1.73 sq M.predicted among non-blacks MDRD (S/P/Bld) [Vol rate/Area] 38 mL/min/{1.73_m2} Low >60 [facility] Comment on above: Result Comment: These results [...] secretion. Performed By: #### P T, CDP, TROPI, PTT, CP #### [facility] [address] [place] [address] [employer] Eng[employer]ver: Tej Locke MD Glucose [Mass/Vol] 106 mg/dL High 74-99 [facility] Comment on above: Performed By: #### P T, CDP, TROPI, PTT, CP #### [employer] [address] [place] [address] [employer] Eng[employer]ver: Tej Locke MD Potassium [Moles/Vol] 4.6 mmol/L Normal 3.7-5.3 [facility] Comment on above: Performed By: #### P T, CDP, TROPI, PTT, CP #### [facility] [address] [place] [address] [employer] Eng[employer]ver: Tej Locke MD Protein [Mass/Vol] 6.4 g/dL Low 6.6-8.7 [facility] Comment on above: Performed By: #### P T, CDP, TROPI, PTT, CP #### [facility] [address] [place] [address] [employer] Eng[employer]ver: Tej Locke MD Sodium [Moles/Vol] 140 mmol/L Normal 136-145 [facility] Comment on above: Performed By: #### P T, CDP, TROPI, PTT, CP #### [employer] [address] [place] [address] [employer] Eng[employer]ver: Tej Locke MD Urea nitrogen [Mass/Vol] 25 mg/dL High 8-23 [facility] Comment on above: Performed By: #### P T, CDP, TROPI, PTT, CP #### [facility] [address] [place] [phone] [employer] Engraver: Tej Locke MD Comprehensive Metabolic Pane [facility] 04-23-2024 Albumin [Mass/Vol] 4.2 g/dL 3.5 - 5.2 g/dL [facility] Albumin/Globulin [Mass ratio] 1.9 {ratio} 1.0 - 2.5 [facility] ALP [Catalytic activity/Vol] 116 U/L High 35 - 104 U/L [facility] ALT [Catalytic activity/Vol] 19 U/L 10 - 35 U/L [facility] Anion gap [Moles/Vol] 9 mmol/L 9 - 16 mmol/L [facility] AST [Catalytic activity/Vol] 17 U/L 10 - 35 U/L [facility] Bilirubin [Mass/Vol] mg/dL 0.0 - 1 .2 mg/dL [facility] Calcium [Mass/Vol] 9.6 mg/dL 8.6 - 10. 4 mg/dL [facility] Chloride [Moles/Vol] 109 mmol/L High 98 - 10 7 mmol/L [facility] CO2 [Moles/Vol] 22 mmol/L 20 - 31 mmol/L [facility] Creatinine [Mass/Vol] 1.5 mg/dL High 0.6 - 0.9 mg/dL [facility] Est, Glom Filt Rate 38 Low - PINF [facility] Comment on above: These results are not [...] 106 mg/dL High 74 - 99 mg/dL [facility] Potassium [Moles/Vol] 4.6 mmol/L 3.7 - 5.3 mmol/L [facility] Protein [Mass/Vol] 6.4 g/dL Low 6.6 - 8.7 g/dL [facility] Sodium [Moles/Vol] 140 mmol/L 136 - 145 mmol/L [facility] Urea nitrogen [Mass/Vol] 25 mg/dL High 8 - 23 mg/dL [facility] Creatinine W/GFR Point of Ca reon 04-23-2024 Creatinine [Mass/Vol] 1.3 mg/dL High 0.51 - 1.19 mg/dL [facility] eGFR, POC 45 Low - PINF [facility] Comment on above: These results are not [...] affects renal tubular secretion. Creatinine w/GFR, POCon 11-2 Creatinine [Mass/Vol] 1.3 mg/dL High 0.51-1.19 [facility] GFR/1.73 sq M.predicted among non-blacks MDRD (S/P/Bld) [Vol rate/Area] 45 mL/min/{1.73_m2} Low >60 [facility] Comment on above: Result Comment: These results [...] [Moles/Vol] 14 mmol/L 7 - 16 mmol/L [facility] Chloride [Moles/Vol] 109 mmol/L High 98 - 10 7 mmol/L [facility] CO2 Calc (Bld) [Moles/Vol] 23 mmol/L 22 - 30 mmol/L [facility] Potassium [Moles/Vol] 4.6 mmol/L High 3.5 - 4.5 mmol/L [facility] Sodium [Moles/Vol] 145 mmol/L 138 - 146 mmol/L [facility] Electrolyteson 04-23-2024 Anion gap [Moles/Vol] 14 mmol/L Normal 7-16 [facility] Chloride [Moles/Vol] 109 mmol/L High 98-107 [facility] CO2 [Moles/Vol] 23 mmol/L Normal 22-30 [facility] Potassium [Moles/Vol] 4.6 mmol/L High 3.5-4.5 [facility] Sodium [Moles/Vol] 145 mmol/L Normal 138-146 [facility] Glucose (POC)on 04-23-2024 Glucose [Mass/Vol] 98 mg/dL Normal 74-100 [facility] Hemoglobin and hematocrit, b loodon 04-23-2024 Hematocrit (Bld) [Volume fraction] 37 % 36 - 46 % [facility] Hemoglobin (Bld) [Mass/Vol] 12.4 g/dL 12.0 - 16.0 g/dL [facility] Hgb/Hct, POCon 04-23-2024 Hematocrit (Bld) [Volume fraction] 37 % Normal 36-46 [facility] Hemoglobin (Bld) [Mass/Vol] 12.4 g/dL Normal 12.0-16.0 [facility] Lactic Acid (POC)on 04-23-20 24 Lactate [Moles/Vol] 1.0 mmol/L Normal 0.56-1.39 [facility] Lactic Acid, POCon POC Lactic Acid 1.0 mmol/L 0.56 - 1.39 mmol/L [facility] MR Brain WO contraston 04-23 No acute intracrania l abnormality. [facility] RIS CONSOLIDATED EXAMINATION: MRI OF THE BRAIN [...] The soft tissues demonstrate no acute abnormality. [facility] Yin Henderson MD - 04/23/2024 EXAMINATION: MRI OF THE [...] acute abnormality. IMPRESSION: No acute intracranial abnormality. [facility] Radiology Study observation (narrative) [facility] MR Brain WO contrastOrdered By: Yin Calderón on 04-23-2024 [facility] Work Phone: MRI BRAIN WO CONTRASTon 04-04 [...] Yin Calderón MD 04/23/24 Final result Normal [facility] Microscopic Urinalysison Bacteria LM Ql (Urine sed) None None [facility] Casts LM.LPF (Urine sed) [#/Area] None Reference range defined for non-centrifuged specimen. [facility] Epithelial cells LM.HPF (Urine sed) [#/Area] 0 TO 2 [facility] RBC LM.HPF (Urine sed) [#/Area] None [facility] Comment on above: Reference range defi aggie for non-centrifuged specimen. WBC LM.HPF (Urine sed) [#/Area] 0 TO 2 [facility] No Panel Informationon 04-23 1. No [...] received by Dr. Pillai at 2:22 pm. [facility] RIS CONSOLIDATED EXAMINATION: CTA OF [...] for review. This scan was analyzed using [employer] contact LVO. Identification of suspected findings is not for diagnostic use beyond notification. [employer] is limited to analysis of imaging [...] venous sinus thrombosis on this non-dedicated study. [facility] RIS CONSOLIDATED RomeoYandel loco - [...] for review. This scan was analyzed using [employer] contact LVO. Identification of suspected findings is [...] received by Dr. Pillai at 2:22 pm. [facility] Interpretation and review of laboratory results Abnormal [facility] Interpretation and review of laboratory results Abnormal [facility] No Panel InformationOrdered By: Yandel Walters on 04-23-2024 [facility] Work Phone: POCT Glucoseon 04-23-2024 Glucose [Mass/Vol] 98 mg/dL 74 - 100 mg/dL [facility] POCT urea (BUN)on 04-23-2024 Urea nitrogen [Mass/Vol] 25 mg/dL 8 - 26 mg/dL [facility] PTon 04-23-2024 INR Coag (PPP) [Relative time] 1.0 {INR} Normal [facility] Comment on above: Result Comment: Therapeutic Range: Moderate Anticoagulant Intensity: INR = 2.0-3.0 High Anticoagulant Intensity: INR = 2.5-3.5 Performed By: #### P T, CDP, TROPI, PTT, CP #### [facility] [address] [place] [phone] [employer]ver: Tej Locke MD PT Coag (PPP) [Time] 13.5 s Normal 11.7-14.9 [facility] Comment on above: Performed By: #### P T, CDP, TROPI, PTT, CP #### [facility] [address] [phone] [employer] Eng[employer]ver: Tej Locke MD Portable XR Chest AP single viewon 04-23-2024 No acute process. [facility] CONSOLIDATED EXAMINATION: ONE XRAY VIEW OF THE CHEST 04/23/2024 2:02 pm COMPARISON: 05/19/2016 HISTORY: ORDERING SYSTEM PROVIDED HISTORY: Concern for pneumonia TECHNOLOGIST PROVIDED HISTORY: Concern for pneumonia FINDINGS: The lungs are without acute focal process. There is no effusion or pneumothorax. The cardiomediastinal silhouette is stable. The osseous structures are stable. [facility] CONSOLIDATED Khalif St MD - 04/23/2024 EXAMINATION: ONE XRAY VIEW OF THE CHEST 04/23/2024 2:02 pm COMPARISON: 05/19/2016 HISTORY: ORDERING SYSTEM PROVIDED HISTORY: Concern for pneumonia TECHNOLOGIST PROVIDED HISTORY: Concern for pneumonia FINDINGS: The lungs are without acute focal process. There is no effusion or pneumothorax. The cardiomediastinal silhouette is stable. The osseous structures are stable. IMPRESSION: No acute process. [facility] Radiology Study observation (narrative) [facility] [employer] [facility] Portable XR Chest AP single viewOrdered By: Khalif St on 04-23-2024 [facility] Work Phone: Protime-INRon 04-23-2024 INR Coag (PPP) [Relative time] 1.0 {INR} [facility] [employer] [facility] Comment on above: Therapeutic Range: Moderate Anticoagulant Intensity: INR = 2.0-3.0 High Anticoagulant Intensity: INR = 2.5-3.5 PT Coag (PPP) [Time] 13.5 s [facility] Troponinon 04-23-2024 Interpretation and review of laboratory results Abnormal [facility] [employer] [facility] Troponin I.cardiac High sensitivity method [Mass/Vol] 20 ng/L High 0 - 14 ng/L [facility] Comment on above: High Sensitivity Tro ponin values cannot be compared with other Troponin methodologies. [facility] Troponin, High Sens 20 ng/L High 0-14 [facility] Comment on above: Result Comment: High Sensitivity Troponin values cannot be compared with other Troponin methodologies. Performed By: #### T ROPI #### [facility] [address] [place] [address] [employer] Engraver: Tej Locke MD Troponin I.cardiac High sensitivity method [Mass/Vol] 22 ng/L High 0 - 14 ng/L [facility] Comment on above: High Sensitivity Tro ponin values cannot be compared with other Troponin methodologies. Troponin, High Sens 22 ng/L High 0-14 [facility] Comment on above: Result Comment: High Sensitivity Troponin values cannot be compared with other Troponin methodologies. Performed By: #### P T, CDP, TROPI, PTT, CP #### [facility] [address] [place] [phone] [employer] Eng[employer]ver: Tej Locke MD UA w/Reflex Cultureon 2023 Bilirubin, SemiQt,Ur Negative Normal NEG [facility] Comment on above: Performed By: #### U AX, UMICAO ####[facility] [id number] [place] [address] Lab Director: Tej Locke MD Blood, Urine Negative Normal NEG [facility] Comment on above: Performed By: #### U AX, UMICAO ####[facility] [id number] [place] [address] Lab Director: Tej Locke MD Clarity (U) Clear Normal CLEAR [facility] Comment on above: Performed By: #### U AX, UMICAO ####[facility] [address] [place] [address] Lab Director: Tej Locek MD Color (U) Yellow Normal YEL [facility] Comment on above: Performed By: #### U AX, UMICAO ####[facility] [id number] [place] [phone] Lab Director: Tej Locke MD Glucose Ql (U) Negative Normal NEG [facility] Comment on above: Performed By: #### U AX, UMICAO ####[facility] [address] [place] [address] Lab Director: Tej Locke MD Ketones Ql (U) Negative Normal NEG [facility] Comment on above: Performed By: #### U AX, UMICAO ####[facility] [address] [place], [place] [phone] Director: Tej Locke MD Leukocyte esterase Test strip Ql (U) TRACE Abnormal NEG [facility] Comment on above: Performed By: #### U AX, UMICAO ####[facility] [address] [place], [place] [phone] Director: Tej Locke MD Nitrite,Ur Negative Normal NEG [facility] Comment on above: Performed By: #### U AX, UMICAO ####[facility] [address] [place], [place] [phone] Director: Tej Locke MD PH,Ur 7.0 Normal 5.0-8.0 [facility] Comment on above: Performed By: #### U AX, UMICAO ####[facility] [address] [place] [address] Lab Director: Tej Locke MD Protein Ql (U) Negative Normal NEG [facility] Comment on above: Performed By: #### U AX, UMICAO ####[facility] [address] [place] [address] Lab Director: Tej Locke MD Spec. [place],Ur 1.017 Normal 1.005-1.03 0 [facility] Comment on above: Performed By: #### U AX, UMICAO ####[facility] [address] [place], [place] [phone] Director: Tej Locke MD Urobilinogen,Ur Normal Normal 0.0-1.0 [facility] Comment on above: Performed By: #### U AX, UMICAO ####[facility] [address] [place], [place] [phone] lab Director: Tej Locke MD Urinalysis with Reflex to Cu ltureon 04-23-2024 Bilirubin Ql (U) Negative NEGATIVE [facility] Estify Clarity (U) Clear Clear [facility] Color (U) Yellow Yellow [facility] Glucose Test strip (U) [Mass/Vol] Negative NEGATIVE mg/dL [facility] Hemoglobin Auto test strip Ql (U) Negative NEGATIVE [facility] Interpretation and review of laboratory results Abnormal [facility] Ketones (U) [Mass/Vol] Negative NEGAT MATT mg/dL [facility] Leukocyte esterase Test strip Ql (U) TRACE Abnormal NEGATIVE [facility] Nitrite Ql (U) Negative NEGATIVE [facility] pH (U) 7.0 [pH] 5.0 - 8.0 [facility] Protein (U) [Mass/Vol] Negative NEGAT MATT mg/dL [facility] Specific gravity (U) [Rel density] 1.017 1.005 - 1.030 [facility] Urobilinogen Qn (U) Normal 0.0 - 1. 0 EU/dL [facility] Urinalysis,Microon 4 Bacteria None Normal NONE [facility] Comment on above: Performed By: #### U AXFLORENCIAICAO ####[facility] [address] [place], [place] [phone] Lab Director: Tej Locke MD Casts None Normal 0-8 [facility] Comment on above: Result Comment: Refe rence range defined for non-centrifuged specimen. Performed By: #### U AX UMICAO ####[facility] [address] [place], [place] [phone] Lab Director: Tej Locke MD Epithelial cells LM Ql (Urine sed) 0 TO 2 Normal 0-5 [facility] Comment on above: Performed By: #### U AX, UMICAO ####[facility] [address] [place] [address] Lab Director: Tej Locke MD Urine RBC's None Normal 0-4 [facility] Comment on above: Result Comment: Refe rence range defined for non-centrifuged specimen. Performed By: #### U AX, UMICAO ####[facility] [address] [place] [address] Lab Director: Tej Locke MD Urine WBC's 0 TO 2 Normal 0-5 [facility] Comment on above: Performed By: #### U AX, UMICAO ####[facility] [address] [place] [address] Lab Director: Tej Locke MD Venous Bld Gas,POCon HCO3 (Bld) [Moles/Vol] 23.4 mmol/L Normal 22.0-29.0 M [facility] Negative Base Excess (calc) 1.9 mmol/L Normal 0.0-2.0 [facility] Oxygen saturation in Blood 26.7 % Low 60.0-85.0 [facility] pCO2, Venous 41.3 mm Hg Normal 41.0-51.0 [facility] pH,Venous 7.362 Normal 7.320-7.43 0 [facility] pO2, Venous 18.7 mm Hg Low 30.0-50.0 [facility] Venous Blood Gas, POCon 11 HCO3 (Bld) [Moles/Vol] 23.4 mmol/L 22.0 - 29.0 mmol/L [facility] Negative Base Excess, Mark 1.9 mmol/L 0.0 - 2.0 mmol/L [facility] Oxygen saturation in Blood 26.7 % Low 60.0 - 85.0 % [facility] pCO2, Mark 41.3 [facility] pH, Mark 7.362 7.320 - 7.430 [facility] PO2, Mark 18.7 Low [facility] XR CHEST PORTABLEon 04-23-20 XR CHEST PORTABLE EXAMINATION: ONE XRAY VIEW [...] Khalif St MD 04/23/24 Final result Normal [facility] EMG 2 Extremitieson 02-25-20 L5 b/l mild [facility] NVC 9-10 Nerveson 02-25-2024 L5 b/l mild [facility] [place] [Moles/volume] in Se rum or PlasmaOrdered By: Joe Davis on 12-18-2023 [place] [Moles/Vol] 1.00 mmol/L Normal 0.60-1.20 [facility] Comment on above: Result Comment: PERF ORMED BY: [place] [address] PATHOLOGIST POLYMERIZATION ENGINEER GATO PEÑA M.D. Performed By: #### L ITH #### [facility] [address] [place] [address] Cholesterol [Mass/volume] in Serum or PlasmaOrdered By: Joe Davis on 12-17-2023 Cholesterol [Mass/Vol] 133 mg/dL Low 140-200 [facility] Comment on above: Chol less than 200 m g/dl low riskChol 201-239 mg/dl borderline riskChol 240 mg/dl and greater high risk Result Comment: Chol less than 200 mg/dl low risk Chol 201-239 mg/dl borderline risk Chol 240 mg/dl and greater high risk Performed By: #### E LONNIE, CBC, CMP #### [facility] [address] [phone] [facility] Cholesterol in LDL Calc [Mas s/Vol]Ordered By: Joe Davis on 12-17-2023 Cholesterol in LDL [Mass/Vol] 66 mg/dL 0-100 [facility] Comment on above: LDL ATP III CLASSIFI CATIONLDL less than 100 mg/dL OptimalLDL 100-129 mg/dL Near or above optimalLDL 130-159 mg/dL Borderline highLDL 160-189 mg/dL HighLDL greater than 189 mg/dL Very high Cholesterol in VLDL Calc [Ma ss/Vol]Ordered By: Joe Davis on 12-17-2023 Cholesterol in VLDL [Mass/Vol] 18 mg/dL [facility] ECG 12 lead ECGon 12-17-2023 ECG 12 lead ECG [facility] [address] [place] [address] [place], [place] [id number] Electrocardiograph Report Signed Patient: Gail Almeida MR#: [id number] : 1955 Acct:[id number] Age/Sex: 68 / F ADM Date: 12/16/23 Loc: Room: [address] [place] [address] Type: ADM IN Attending Dr: Joe Davis [...] Dayday Crawford MD 12/17/23 1649 Normal [facility] Lipid Panelon 12-17-2023 LDL Cholesterol,Calculated 66 mg/dL Normal 0-100 [facility] Comment on above: Result Comment: LDL ATP III CLASSIFICATION LDL less than 100 mg/dL Optimal LDL 100-129 mg/dL Near or above optimal LDL 130-159 mg/dL Borderline high LDL 160-189 mg/dL High LDL greater than 189 mg/dL Very high Performed By: #### E LONNIE CBC, CMP #### [facility] [address] Triglyceride w/Reflex 94 mg/dL Normal 0-149 [facility] Comment on above: Result Comment: TRIG ATP III CLASSIFICATION TRIG less than 150 mg/dL Normal TRIG 150-199 mg/dL Borderline high TRIG 200-500 mg/dL High TRIG greater than 500 mg/dL Very high Standard traceable to the Center for Disease Conrtrol and Prevention (CDC) test method. Performed By: #### E LONNIE, CBC, CMP #### [facility] [address] VLDL CHOLESTEROL 18 mg/dL Normal [facility] Comment on above: Performed By: #### E LONNIE CBC, CMP #### [facility] [address] Serum or plasma high density lipoprotein (HDL) cholesterol measurementOrdered By: Joe Davis on 12-17-2023 Cholesterol in HDL [Mass/Vol] 48 mg/dL Normal 23-92 [facility] Comment on above: HDL CHOL ATP-III CLA SSIFICATION Cardiovascular RiskHDL > or equal to 60 mg/dL LOWHDL < 40 mg/dL HIGH Result Comment: HDL CHOL ATP-III CLASSIFICATION Cardiovascular Risk HDL > or equal to 60 mg/dL LOW HDL < 40 mg/dL HIGH Performed By: #### E LONNIE, CBC, CMP #### [facility] [address] Serum or plasma total choles terol/high density lipoprotein (HDL) cholesterol mass ratOrdered By: Joe Davis on 12-17-2023 Cholesterol.total/Judy sterol in HDL [Mass ratio] 2.8 {ratio} Normal <5.0 [facility] Comment on above: Performed By: #### E LONNIE, CBC, CMP #### [facility] [address] Thyroid Stim Hormone w/Rflxo n 12-17-2023 Thyroid Stim Hormone w/Rflx 0.27 u[iU]/mL Low 0.45-5.33 [facility] Comment on above: Performed By: #### E LONNIE, CBC, CMP #### [facility] [address] Thyrotropin [Units/volume] i n Serum or PlasmaOrdered By: Joe Davis on 12-17-2023 TSH Qn 0.27 m[IU]/L Low 0.45-5.33 [facility] Thyroxine (T4) free [Mass/vo lume] in Serum or PlasmaOrdered By: Joe Davis on 12-17-2023 Free T4 [Mass/Vol] 0.79 ng/dL Normal 0.61-1.12 [facility] Comment on above: Performed By: #### E LONNIE CBC, CMP #### [facility] [address] Triglyceride [Mass/volume] i n Serum or PlasmaOrdered By: Joe Davis on 12-17-2023 Triglyceride [Mass/Vol] 94 mg/dL 0-149 [facility] Comment on above: TRIG ATP III CLASSIF ICATIONTRIG less than 150 mg/dL NormalTRIG 150-199 mg/dL Borderline highTRIG 200-500 mg/dL High TRIG greater than 500 mg/dL Very highStandard traceable to the Center for Disease Conrtrol and Prevention (CDC) test method. Vitamin D 25 Hydroxy Totalon 12-17-2023 Vitamin D 25 Hydroxy Total 26.0 ng/mL Low 30-100 [facility] Comment on above: Result Comment: EDUARDO MIN D STATUS 25(OH)VITAMIN D RANGE (ng/mL) Deficient <20 Insufficient 20 to <30 Sufficient 30 to 100 Reference: Lucio MF,Renée DRAKE, Francisco CARPIO, et al. Evaluation,treatment, and prevention of vitamin D deficiency; an Endocrine Society clinical practice guideline. JCEM. 2010; 96(7):1911-30. PERFORMED BY: [place] [address] PATHOLOGIST POLYMERIZATION ENGINEER GATO PEÑA M.D. Performed By: #### E LONNIE, CBC, CMP #### [address] Vitamin D+Metabolites [Mass/ volume] in Serum or PlasmaOrdered By: Joe Davis on 12-17-2023 Vitamin D+Metabolites [Mass/Vol] 26.0 ng/mL Low 30-100 [facility] Comment on above: VITAMIN D STATUS [...] ALT [Catalytic activity/Vol] 14 U/L Normal 7-52 [facility] Comment on above: Performed By: #### E LONNIE, CBC, CMP #### [address] Albumin [Mass/volume] in Ser um or Plasma by Bromocresol green (BCG) dye binding methoOrdered By: Juve Spears on 12-16-2023 Albumin BCG dye [Mass/Vol] 4.1 g/dL 3.5-5.7 [facility] Alkaline phosphatase [Enzyma tic activity/volume] in Serum or PlasmaOrdered By: Juve Spears on 12-16-2023 ALP [Catalytic activity/Vol] 101 U/L Normal 34-104 [facility] Comment on above: Performed By: #### E LONNIE, CBC, CMP #### [address] Amphetamine Screen Ql (U)Ord ered By: Juve Spears on 12-16-2023 Amphetamines Ql (U) Negative Negative [facility] Aspartate aminotransferase [ Enzymatic activity/volume] in Serum or PlasmaOrdered By: Juve Spears on 12-16-2023 AST [Catalytic activity/Vol] 16 U/L Normal 13-39 [facility] Comment on above: Performed By: #### E LONNIE, CBC, CMP #### [facility] [address] Automated basophil %Ordered By: Juve Spears on 12-16-2023 Basophils/100 WBC (Bld) 0.9 % Normal . [facility] Comment on above: Performed By: #### E LONNIE, CBC, CMP #### [facility] [address] Automated basophil countOrde red By: Juve Spears on 12-16-2023 Basophils (Bld) [#/Vol] 0.1 10*3/uL Normal 0.0-0.2 [facility] Comment on above: Result Comment: PERF ORMED BY: [place] [address] PATHOLOGIST POLYMERIZATION ENGINEER GATO PEÑA M.D. Performed By: #### E LONNIE, CBC, CMP #### [address] Automated blood monocyte cou ntOrdered By: Juve Spears on 12-16-2023 Monocytes (Bld) [#/Vol] 0.5 10*3/uL Normal 0.0-0.8 [facility] Comment on above: Performed By: #### E LONNIE, CBC, CMP #### [facility] [address] Automated eosinophil %Ordere d By: Juve Spears on 12-16-2023 Eosinophils/100 WBC (Bld) 3.9 % Normal . [facility] Comment on above: Performed By: #### E LONNIE, CBC, CMP #### [facility] [address] Automated eosinophil countOr dered By: Juve Spears on 12-16-2023 Eosinophils (Bld) [#/Vol] 0.2 10*3/uL Normal 0.0-0.45 [facility] Comment on above: Performed By: #### E LONNIE, CBC, CMP #### [facility] [address] Automated monocyte %Ordered By: Juve Spears on 12-16-2023 Monocytes/100 WBC (Bld) 7.5 % Normal . [facility] Comment on above: Performed By: #### E LONNIE, CBC, CMP #### [facility] [address] Automated neutrophil %Ordere d By: Juve Spears on 12-16-2023 Neutrophils/100 WBC (Bld) 62.8 % Normal . [facility] Comment on above: Performed By: #### E LONNIE, CBC, CMP #### [facility] [address] Barbiturates [Presence] in U rine by Screen methodOrdered By: Juve Spears on 12-16-2023 Barbiturates Screen Ql (U) Negative Negative [facility] Benzodiazepines Screen Ql (U )Ordered By: Juve Spears on 12-16-2023 Benzodiazepines Ql (U) Negative Negative [facility] Benzoylecgonine [Presence] i n Urine by Screen methodOrdered By: Juve Spears on 12-16-2023 Benzoylecgonine Screen Ql (U) Negative Negative [facility] Bilirubin Test strip Ql (U)O rdered By: Juve Spears on 12-16-2023 Bilirubin Ql (U) Negative Negative [facility] Bilirubin.total [Mass/volume ] in Serum or PlasmaOrdered By: Juve Spears on 12-16-2023 Bilirubin [Mass/Vol] 0.3 mg/dL Normal 0.3-1.0 [facility] Comment on above: Performed By: #### E LONNIE, CBC, CMP #### [facility] [address] [place] [address] [place] Calcium [Mass/volume] in Ser um or PlasmaOrdered By: Juve Spears on 12-16-2023 Calcium [Mass/Vol] 9.8 mg/dL Normal 8.6-10.3 [facility] Comment on above: Performed By: #### E LONNIE CBC, CMP #### [facility] [address] Cannabinoids [Presence] in U rine by Screen methodOrdered By: Juve Spears on 12-16-2023 Cannabinoids Screen Ql (U) Negative Negative [facility] Comment on above: These are unconfirme d results and should not be used for legal purposes. Drug Cut-Off Concentration: AMPH 1000 ng/mL PJ 200 ng/mL BETSY 200 ng/mL COCM 300 ng/mL OP 300 ng/mL PCP 25 ng/mL THC 20 ng/mL Carbon dioxide, total [Moles /volume] in Serum or PlasmaOrdered By: Juve Spears on 12-16-2023 CO2 [Moles/Vol] 22.9 mmol/L Normal 21.0-31.0 [facility] Comment on above: Performed By: #### E LONNIE CBC, CMP #### [place] [address] [place] Chloride [Moles/volume] in S kishan or PlasmaOrdered By: Juve Spears on 12-16-2023 Chloride [Moles/Vol] 110 mmol/L High 98-107 [facility] Comment on above: Performed By: #### E HEDY FLEMING, CMP #### [address] Color of Urine by AutoOrdere d By: Juve Spears on 12-16-2023 Color (U) Colorless Normal Yellow [facility] Comment on above: Order Comment: Name Collection Type:: Clean-Voided Midstream Performed By: #### E LONNIE CBC, CMP #### [address] Complete Blood Count Auto Di ffon 12-16-2023 Mean Corpuscular HGB Conc 33.6 g/dL Normal 32.0-35.0 [facility] Comment on above: Performed By: #### E LONNIE CBC, CMP #### [address] Monocytes/100 WBC (Bld) 17.55 % Normal 0.00-20.00 [facility] Comment on above: Performed By: #### E LONNIE CBC, CMP #### [address] NRBC% 0.1 /100{WBC} Normal 0-0.5 [facility] Comment on above: Performed By: #### E LONNIE CBC, CMP #### [address] Comprehensive Metabolic Pane eusebia 12-16-2023 Albumin [Mass/Vol] 4.1 g/dL Normal 3.5-5.7 [facility] Comment on above: Performed By: #### E LONNIE CBC, CMP #### [address] Creatinine Clr Calc Pharmacy 32.44 Normal [facility] Comment on above: Result Comment: PERF ORMED BY: [place] [address] PATHOLOGIST POLYMERIZATION ENGINEER GATO PEÑA M.D. Performed By: #### E LONNIE CBC, CMP #### [address] GFR/1.73 sq M.predicted MDRD (S/P/Bld) [Vol rate/Area] 37.657 mL/min/{1.73_m2} Normal [facility] Comment on above: Performed By: #### E LONNIE CBC, CMP #### [address] Creatinine [Mass/volume] in Serum or PlasmaOrdered By: Juve Spears on 12-16-2023 Creatinine [Mass/Vol] 1.51 mg/dL High 0.60-1.20 [facility] Comment on above: Performed By: #### E LONNIE, CBC, CMP #### [address] Drug Screen,Urineon 12-16-19 24 Amphetamine Screen,Urine Negative Normal Negative [facility] Comment on above: Performed By: #### E LONNIE, CBC, CMP #### [address] Barbiturate Screen,Urine Negative Normal Negative [facility] Comment on above: Performed By: #### E LONNIE, CBC, CMP #### [address] Benzodiazepines Screen,Urine Negative Normal Negative [facility] Comment on above: Performed By: #### E LONNIE, CBC, CMP #### [address] Cannabinoid Screen,Urine Negative Normal Negative [facility] Comment on above: Result Comment: Thes e are unconfirmed results and should not be used for legal purposes. Drug Cut-Off Concentration: AMPH 1000 ng/mL PJ 200 ng/mL BETSY 200 ng/mL COCM 300 ng/mL OP 300 ng/mL PCP 25 ng/mL THC 20 ng/mL PERFORMED BY: [place] [address] PATHOLOGIST POLYMERIZATION ENGINEER GATO PEÑA M.D. Performed By: #### E LONNIE, CBC, CMP #### [address] Cocaine Screen,Urine Negative Normal Negative [facility] Comment on above: Performed By: #### E LONNIE, CBC, CMP #### [address] Opiate Screen,Urine Negative Normal Negative [facility] Comment on above: Performed By: #### E LONNIE, CBC, CMP #### [address] Phencyclidine Screen,Urine Negative Normal Negative [facility] Comment on above: Performed By: #### E LONNIE, CBC, CMP #### [address] Erythrocyte distribution wid th [Ratio] by Automated countOrdered By: Juve Spears on 12-16-2023 Erythrocyte distribution width (RBC) [Ratio] 14.6 % Normal 11.9-15.3 [facility] Comment on above: Performed By: #### E LONNIE, CBC, CMP #### [facility] [address] [place] [address] [place] Erythrocytes [#/volume] in B lood by Automated countOrdered By: Juve Spears on 12-16-2023 RBC (Bld) [#/Vol] 3.85 10*6/uL Normal 3.60-5.00 [facility] Comment on above: Performed By: #### E LONNIE, CBC, CMP #### [facility] [address] [place] [address] [place] Ethanol [Mass/volume] in Ser um or PlasmaOrdered By: Juve Spears on 12-16-2023 Ethanol [Mass/Vol] mg/dL Normal [facility] Comment on above: Performed By: #### E LONNIE, CBC, CMP #### [facility] [address] Ethanol [Mass/Vol] TNP [facility] Comment on above: Test not performed Ethyl Alcohol Profileon 12-01 Percent Ethanol Not performed Normal [facility] Comment on above: Result Comment: PERF ORMED BY: [place] [address] PATHOLOGIST POLYMERIZATION ENGINEER GATO PEÑA M.D. Performed By: #### E LONNIE, CBC, CMP #### [facility] [address] [place] [address] [place] Glucose [Mass/volume] in Ser um or PlasmaOrdered By: Juve Spears on 12-16-2023 Glucose [Mass/Vol] 138 mg/dL High 70-100 [facility] Comment on above: ADA recommended refe rence rangeRandom Glucose Reference Range is dependent on time and content of last meal. Glucose of more than 200 mg/dL in a nonstressed, ambulatory subject supports the diagnosis of Diabetes Mellitus. Result Comment: [place] om Glucose Reference Range is dependent on time and content of last meal. Glucose of more than 200 mg/dL in a nonstressed, ambulatory subject supports the diagnosis of Diabetes Mellitus. ADA recommended reference range Performed By: #### E LONNIE, CBC, CMP #### [facility] [address] [place] [address] [place] Glucose [Mass/volume] in Uri ne by Test stripOrdered By: Juve Spears on 12-16-2023 Glucose Test strip (U) [Mass/Vol] Normal mg/dL Normal [facility] Hematocrit [Volume Fraction] of Blood by Automated countOrdered By: Juve Spears on 12-16-2023 Hematocrit (Bld) [Volume fraction] 36.4 % Normal 34.0-46.4 [facility] Comment on above: Performed By: #### E LONNIE, CBC, CMP #### [facility] [address] Hemoglobin Test strip Ql (U) Ordered By: Juve Spears on 12-16-2023 Hemoglobin Ql (U) Negative Negative [facility] Hemoglobin [Mass/volume] in BloodOrdered By: Juve Spears on 12-16-2023 Hemoglobin (Bld) [Mass/Vol] 12.2 g/dL Normal 11.8-15.4 [facility] Comment on above: Performed By: #### E LONNIE, CBC, CMP #### [facility] [address] [place] [address] [place] Ketones [Presence] in Urine by Test stripOrdered By: Juve Spears on 12-16-2023 Ketones Ql (U) Negative Normal Negative [facility] Comment on above: Order Comment: Name Collection Type:: Clean-Voided Midstream Performed By: #### E LONNIE, CBC, CMP #### [facility] [address] [place] [id number] [place] Leukocyte esterase [Presence ] in Urine by Test stripOrdered By: Juve Spears on 12-16-2023 Leukocyte esterase Test strip Ql (U) Negative Normal Negative [facility] Comment on above: Order Comment: Name Collection Type:: Clean-Voided Midstream Performed By: #### E LONNIE, CBC, CMP #### [facility] [address] [place] [id number] [place] Leukocytes [#/volume] correc cornelia for nucleated erythrocytes in Blood by Automated counOrdered By: Juve Spears on 12-16-2023 WBC corrected for nucl RBC Auto (Bld) [#/Vol] 6.3 10*3/uL 3.8-11.6 [facility] Leukocytes [#/volume] in Blo od by Automated countOrdered By: Juve Spears on 12-16-2023 WBC (Bld) [#/Vol] 6.3 10*3/uL Normal 3.8-11.6 [facility] Comment on above: Performed By: #### E LONNIE, CBC, CMP #### [facility] [address] [place] [address] [place] Lymphocytes [#/volume] in Bl ood by Automated countOrdered By: Juve Spears on 12-16-2023 Lymphocytes (Bld) [#/Vol] 1.6 10*3/uL Normal 1.00-4.8 [facility] Comment on above: Performed By: #### E LONNIE, CBC, CMP #### [facility] [address] [place] [address] [place] Lymphocytes/100 leukocytes i n Blood by Automated countOrdered By: Juve Spears on 12-16-2023 Lymphocytes/100 WBC (Bld) 24.9 % Normal . [facility] Comment on above: Performed By: #### E LONNIE, CBC, CMP #### [facility] [address] [place] [address] [place] MCH [Entitic mass] by Automa cornelia countOrdered By: Juve Spears on 12-16-2023 MCH (RBC) [Entitic mass] 31.7 pg Normal 24.7-34.3 [facility] Comment on above: Performed By: #### E LONNIE, CBC, CMP #### [facility] [address] [place] [address] MCHC Auto (RBC) [Mass/Vol]Or dered By: Juve Spears on 12-16-2023 MCHC (RBC) [Mass/Vol] 33.6 g/dL 32.0-35.0 [facility] MCV [Entitic volume] by Auto mated countOrdered By: Juve Spears on 12-16-2023 MCV (RBC) [Entitic vol] 94.5 fL Normal 80-100 [facility] Comment on above: Performed By: #### E LONNIE, CBC, CMP #### [facility] [address] Monocyte distribution width [Entitic volume] in Blood by AutomatedOrdered By: Juve Spears on 12-16-2023 Monocyte distribution width Auto (Bld) [Entitic vol] 17.55 % 0.00-20.00 [facility] Neutrophils [#/volume] in Bl ood by Automated countOrdered By: Juve Spears on 12-16-2023 Neutrophils (Bld) [#/Vol] 4.0 10*3/uL Normal 1.8-7.7 [facility] Comment on above: Performed By: #### E LONNIE, CBC, CMP #### [facility] [address] Nitrite Test strip Ql (U)Ord ered By: Juve Spears on 12-16-2023 Nitrite Ql (U) Negative Negative [facility] No Panel InformationOrdered By: Juve Spears on 12-16-2023 Estimated GFR (CKD-EPI) 37.657 mL/Min [facility] Creatinine Clearance (Chem 32.44 [facility] Nucleated erythrocytes [Pres ence] in Blood by Automated countOrdered By: Juve Spears on 12-16-2023 Nucleated RBC Auto Ql (Bld) 0.1 /100{WBC} 0-0.5 [facility] Opiates [Presence] in Urine by Screen methodOrdered By: Juve Spears on 12-16-2023 Opiates Screen Ql (U) Negative Negative [facility] Phencyclidine Screen Ql (U)O rdered By: Juve Spears on 12-16-2023 Phencyclidine Ql (U) Negative Negative [facility] Platelet mean volume [Entiti c volume] in Blood by Automated countOrdered By: Juve Spears on 12-16-2023 Platelet mean volume (Bld) [Entitic vol] 8.4 fL Normal 6.3-10.7 [facility] Comment on above: Performed By: #### E LONNIE, CBC, CMP #### [facility] [address] Platelets [#/volume] in Bloo d by Automated countOrdered By: Juve Spears on 12-16-2023 Platelets (Bld) [#/Vol] 229 10*3/uL Normal 150-450 [facility] Comment on above: Performed By: #### E LONNIE, CBC, CMP #### [address] Potassium [Moles/volume] in Serum or PlasmaOrdered By: Juve Spears on 12-16-2023 Potassium [Moles/Vol] 3.8 mmol/L Normal 3.5-5.1 [facility] Comment on above: Performed By: #### E LONNIE CBC, CMP #### [address] Protein Test strip (U) [Mass /Vol]Ordered By: Juve Spears on 12-16-2023 Protein (U) [Mass/Vol] Negative Negative [facility] Protein [Mass/volume] in Ser um or PlasmaOrdered By: Juve Spears on 12-16-2023 Protein [Mass/Vol] 6.6 g/dL Normal 6.4-8.9 [facility] Comment on above: Performed By: #### E LONNIE CBC, CMP #### [address] Serum globulin measurement b y calculation (mass/volume)Ordered By: Juve Spears on 12-16-2023 Globulin (S) [Mass/Vol] 2.5 g/dL Normal [facility] Comment on above: Performed By: #### E LONNIE, CBC, CMP #### [address] Serum or plasma albumin/glob ulin mass ratioOrdered By: Juve Spears on 12-16-2023 Albumin/Globulin [Mass ratio] 1.6 {ratio} Normal [facility] Comment on above: Performed By: #### E LONNIE, CBC, CMP #### [address] Serum or plasma anion gap de terminationOrdered By: Juve Spears on 12-16-2023 Anion gap [Moles/Vol] 9.9 mmol/L Normal 6.0-15.0 [facility] Comment on above: Performed By: #### E LONNIE CBC, CMP #### [address] Sodium [Moles/volume] in Ser um or PlasmaOrdered By: Juve Spears on 12-16-2023 Sodium [Moles/Vol] 139 mmol/L Normal 136-145 [facility] Comment on above: Performed By: #### E LONNIE CBC, CMP #### [address] Specific gravity Test strip (U) [Rel density]Ordered By: Juve Spears on 12-16-2023 Specific gravity (U) [Rel density] 1.005 1.001-1.03 0 [facility] Urea nitrogen [Mass/volume] in Serum or PlasmaOrdered By: Juve Spears on 12-16-2023 Urea nitrogen [Mass/Vol] 26 mg/dL High 7-25 [facility] Comment on above: Performed By: #### E LONNIE CBC, CMP #### [address] Urinalysison 12-16-2023 Bilirubin,Urine Negative Normal Negative [facility] Comment on above: Order Comment: Name Collection Type:: Clean-Voided Midstream Performed By: #### E LONNIE CBC, CMP #### [address] Glucose Ql (U) Normal Normal Normal [facility] Comment on above: Order Comment: Name Collection Type:: Clean-Voided Midstream Performed By: #### E LONNIE CBC, CMP #### [address] Nitrite,Urine Negative Normal Negative [facility] Comment on above: Order Comment: Name Collection Type:: Clean-Voided Midstream Performed By: #### E LONNIE CBC, CMP #### [address] Occult Blood,Urine Negative Normal Negative [facility] Comment on above: Order Comment: Name Collection Type:: Clean-Voided Midstream Result Comment: PERF ORMED BY: [place] [address] PATHOLOGIST POLYMERIZATION ENGINEER GATO PEÑA M.D. Performed By: #### E LONNIE, CBC, CMP #### [address] Protein,Urine Negative Normal Negative [facility] Comment on above: Order Comment: Name Collection Type:: Clean-Voided Midstream Performed By: #### E LONNIE, CBC, CMP #### [address] Specificy [place],Urine 1.005 Normal 1.00 1-1.03 0 [facility] Comment on above: Order Comment: Name Collection Type:: Clean-Voided Midstream Performed By: #### E LONNIE, CBC, CMP #### [address] Urobilinogen,Urine Normal Normal Normal [facility] Comment on above: Order Comment: Name Collection Type:: Clean-Voided Midstream Performed By: #### E LONNIE, CBC, CMP #### [address] Urine appearanceOrdered By: Juve Spears on 12-16-2023 Appearance (U) Clear Normal Clear [facility] Comment on above: Order Comment: Name Collection Type:: Clean-Voided Midstream Performed By: #### E LONNIE, CBC, CMP #### [address] Urobilinogen Test strip (U) [Mass/Vol]Ordered By: Juve Spears on 12-16-2023 Urobilinogen (U) [Mass/Vol] Normal mg/dL Normal [facility] pH of Urine by Test stripOrd ered By: Juve Spears on 12-16-2023 pH (U) 7.0 [pH] Normal 5.0-9.0 [facility] Comment on above: Order Comment: Name Collection Type:: Clean-Voided Midstream Performed By: #### E LONNIE, CBC, CMP #### [facility] [address] [place] [id number] [facility] CNOVon 09-27-2023 CNOV Office Visit (OTOLMN ) -------- GAIL ALMEIDA ([id number]) 1955 F Date Time Provider Department 09/27/23 9:45 AM YANDEL DANIEL OTOLMN During your visit today, we recorded the following information about you: Yandel Daniel MD 09/28/2023 1:37 PM Signed Gail Almeida [id number] September 27, 2023 [facility] Note CC: Follow-up thyroid cancer [...] by mouth every 12 hours as needed. zqveso-hlhokrbw-qjekkfx (ENZADYNE) 9,000-112,500- 112,500 unit capsule Take 1 [...] Gail Miller (more content not included)... Normal [facility] Basic Metabolic Panelon 03- Creatinine Clr Calc Pharmacy 37.44 Normal [facility] Comment on above: Order Comment: Comme nt Prior to surgery on 08/19 Result Comment: PERF ORMED BY: [place] [address] PATHOLOGIST POLYMERIZATION ENGINEER GATO PEÑA M.D. Performed By: #### E LONNIE, CBC, CMP #### [address] GFR/1.73 sq M.predicted MDRD (S/P/Bld) [Vol rate/Area] 42.961 mL/min/{1.73_m2} Normal [facility] Comment on above: Order Comment: Comme nt Prior to surgery on 08/19 Performed By: #### E LONNIE CBC, CMP #### [facility] [address] [place] [id number] [place] Calcium [Mass/volume] in Ser um or PlasmaOrdered By: Lucy Carolina on 08-20-2023 Calcium [Mass/Vol] 9.7 mg/dL Normal 8.6-10.3 [facility] Comment on above: Order Comment: Comme nt Prior to surgery on 08/19 Performed By: #### E LONNIE CBC, CMP #### [facility] [address] [place] [id number] [place] Carbon dioxide, total [Moles /volume] in Serum or PlasmaOrdered By: Lucy Carolina on 08-20-2023 CO2 [Moles/Vol] 22.2 mmol/L Normal 21.0-31.0 [facility] Comment on above: Order Comment: Comme nt Prior to surgery on 08/19 Performed By: #### E LONNIE CBC, CMP #### [facility] [address] [place] [id number] [place] Chloride [Moles/volume] in S kishan or PlasmaOrdered By: Lucy Carolina on 08-20-2023 Chloride [Moles/Vol] 112 mmol/L High 98-107 [facility] Comment on above: Order Comment: Comme nt Prior to surgery on 08/19 Performed By: #### E LONNIE CBC, CMP #### [facility] [address] [place] [phone] [place] Creatinine [Mass/volume] in Serum or PlasmaOrdered By: Lucy Carolina on 08-20-2023 Creatinine [Mass/Vol] 1.36 mg/dL High 0.60-1.20 [facility] Comment on above: Order Comment: Comme nt Prior to surgery on 08/19 Performed By: #### E LONNIE CBC, CMP #### [facility] [address] [place] [phone] [place] Glucose [Mass/volume] in Ser um or PlasmaOrdered By: Lucy Carolina on 08-20-2023 Glucose [Mass/Vol] 98 mg/dL Normal 70-100 [facility] Comment on above: ADA recommended refe rence rangeRandom Glucose Reference Range is dependent on time and content of last meal. Glucose of more than 200 mg/dL in a nonstressed, ambulatory subject supports the diagnosis of Diabetes Mellitus. Order Comment: Comme nt Prior to surgery on 08/19 Result Comment: [place] om Glucose Reference Range is dependent on time and content of last meal. Glucose of more than 200 mg/dL in a nonstressed, ambulatory subject supports the diagnosis of Diabetes Mellitus. ADA recommended reference range Performed By: #### E HEDY FLEMING, CMP #### [facility] [address] No Panel InformationOrdered By: Lucy Carolina on 08-20-2023 Estimated GFR (CKD-EPI) 42.961 mL/Min [facility] Creatinine Clearance (Chem 37.44 [facility] Potassium [Moles/volume] in Serum or PlasmaOrdered By: Lucy Carolina on 08-20-2023 Potassium [Moles/Vol] 4.5 mmol/L Normal 3.5-5.1 [facility] Comment on above: Order Comment: Comme nt Prior to surgery on 08/19 Performed By: #### E HEDY FLEMING, CMP #### [facility] [address] Serum or plasma anion gap de terminationOrdered By: Lucy Carolina on 08-20-2023 Anion gap [Moles/Vol] 12.3 mmol/L Normal 6.0-15.0 [facility] Comment on above: Order Comment: Comme nt Prior to surgery on 08/19 Performed By: #### E HEDY FLEMING, CMP #### [facility] [address] Sodium [Moles/volume] in Ser um or PlasmaOrdered By: Lucy Carolina on 08-20-2023 Sodium [Moles/Vol] 142 mmol/L Normal 136-145 [facility] Comment on above: Order Comment: Comme nt Prior to surgery on 08/19 Performed By: #### E LONNIE, CBC, CMP #### [facility] [address] [place] [address] [place] Urea nitrogen [Mass/volume] in Serum or PlasmaOrdered By: Lucy Carolina on 08-20-2023 Urea nitrogen [Mass/Vol] 39 mg/dL High 7-25 [facility] Comment on above: Order Comment: Comme nt Prior to surgery on 08/19 Performed By: #### E LONNIE, CBC, CMP #### [facility] [address] [place] [phone] [place] Cholesterol [Mass/volume] in Serum or PlasmaOrdered By: Joe Davis on 08-16-2023 Cholesterol [Mass/Vol] 150 mg/dL Normal 140-200 [facility] Comment on above: Chol less than 200 m g/dl low riskChol 201-239 mg/dl borderline riskChol 240 mg/dl and greater high risk Result Comment: Chol less than 200 mg/dl low risk Chol 201-239 mg/dl borderline risk Chol 240 mg/dl and greater high risk Performed By: #### T 4F, [id number], TSH3 wRFLX, LIPID #### [facility] [address] [place] [address] [place] Cholesterol in LDL Calc [Mas s/Vol]Ordered By: Joe Davis on 08-16-2023 Cholesterol in LDL [Mass/Vol] 74 mg/dL 0-100 [facility] Comment on above: LDL ATP III CLASSIFI CATIONLDL less than 100 mg/dL OptimalLDL 100-129 mg/dL Near or above optimalLDL 130-159 mg/dL Borderline highLDL 160-189 mg/dL HighLDL greater than 189 mg/dL Very high Cholesterol in VLDL Calc [Ma ss/Vol]Ordered By: Joe Davis on 08-16-2023 Cholesterol in VLDL [Mass/Vol] 11 mg/dL [facility] ECG 12 lead ECGon 08-16-2023 ECG 12 lead ECG [facility] [address] [place] [address] Electrocardiograph Report Signed Patient: Gail Almeida MR#: [id number] : 1955 Acct:[id number] Age/Sex: 67 / F ADM Date: 08/15/23 Loc: Room: [address] [place] [address] Type: ADM IN Attending Dr: Joe Davis [...] [place] MD 0 08/16/23 1438 Normal [facility] Lipid Panelon 08-16-2023 LDL Cholesterol,Calculated 74 mg/dL Normal 0-100 [facility] Comment on above: Result Comment: LDL ATP III CLASSIFICATION LDL less than 100 mg/dL Optimal LDL 100-129 mg/dL Near or above optimal LDL 130-159 mg/dL Borderline high LDL 160-189 mg/dL High LDL greater than 189 mg/dL Very high Performed By: #### T 4F, [id number], TSH3 wRFLX, LIPID #### [facility] [address] Triglyceride w/Reflex 57 mg/dL Normal 0-149 [facility] Comment on above: Result Comment: TRIG ATP III CLASSIFICATION TRIG less than 150 mg/dL Normal TRIG 150-199 mg/dL Borderline high TRIG 200-500 mg/dL High TRIG greater than 500 mg/dL Very high Standard traceable to the Center for Disease Conrtrol and Prevention (CDC) test method. Performed By: #### T 4F, [id number], TSH3 wRFLX, LIPID #### [facility] [address] [place] [address] VLDL CHOLESTEROL 11 mg/dL Normal [facility] Comment on above: Performed By: #### T 4F, [id number], TSH3 wRFLX, LIPID #### [address] [place] [Moles/volume] in Se rum or PlasmaOrdered By: Joe Davis on 08-16-2023 [place] [Moles/Vol] 0.50 mmol/L Low 0.60-1.20 [facility] Comment on above: Result Comment: PERF ORMED BY: [place] [address] PATHOLOGIST POLYMERIZATION ENGINEER GATO PEÑA M.D. Performed By: #### L ITH #### [address] Serum or plasma high density lipoprotein (HDL) cholesterol measurementOrdered By: Joe Davis on 08-16-2023 Cholesterol in HDL [Mass/Vol] 65 mg/dL Normal 23-92 [facility] Comment on above: HDL CHOL ATP-III CLA SSIFICATION Cardiovascular RiskHDL > or equal to 60 mg/dL LOWHDL < 40 mg/dL HIGH Result Comment: HDL CHOL ATP-III CLASSIFICATION Cardiovascular Risk HDL > or equal to 60 mg/dL LOW HDL < 40 mg/dL HIGH Performed By: #### T 4F, [id number], TSH3 wRFLX, LIPID #### [facility] [address] [place] [address] Serum or plasma total choles terol/high density lipoprotein (HDL) cholesterol mass ratOrdered By: Joe Davis on 08-16-2023 Cholesterol.total/Judy sterol in HDL [Mass ratio] 2.3 {ratio} Normal <5.0 [facility] Comment on above: Performed By: #### T 4F, [id number], TSH3 wRFLX, LIPID #### [address] [address] [place] Thyroid Stim Hormone w/Rflxo n 08-16-2023 Thyroid Stim Hormone w/Rflx 9.75 u[iU]/mL High 0.45-5.33 [facility] Comment on above: Performed By: #### T 4F, [id number], TSH3 wRFLX, LIPID #### [facility] [address] [place] [phone] [facility] Thyrotropin [Units/volume] i n Serum or PlasmaOrdered By: Joe Davis on 08-16-2023 TSH Qn 9.75 m[IU]/L 0.45-5.33 [facility] Thyroxine (T4) free [Mass/vo lume] in Serum or PlasmaOrdered By: Joe Davis on 08-16-2023 Free T4 [Mass/Vol] 0.69 ng/dL Normal 0.61-1.12 [facility] Comment on above: Performed By: #### T 4F, [id number], TSH3 wRFLX, LIPID #### [facility] [address] [place] [phone] [facility] Triglyceride [Mass/volume] i n Serum or PlasmaOrdered By: Joe Davis on 08-16-2023 Triglyceride [Mass/Vol] 57 mg/dL 0-149 [facility] Comment on above: TRIG ATP III CLASSIF ICATIONTRIG less than 150 mg/dL NormalTRIG 150-199 mg/dL Borderline highTRIG 200-500 mg/dL High TRIG greater than 500 mg/dL Very highStandard traceable to the Center for Disease Conrtrol and Prevention (CDC) test method. Vitamin D 25 Hydroxy Totalon 08-16-2023 Vitamin D 25 Hydroxy Total 28.6 ng/mL Low 30-100 [facility] Comment on above: Result Comment: EDUARDO MIN D STATUS 25(OH)VITAMIN D RANGE (ng/mL) Deficient <20 Insufficient 20 to <30 Sufficient 30 to 100 Reference: Lucio MF,Renée NC, Francisco CARPIO, et al. Evaluation,treatment, and prevention of vitamin D deficiency; an Endocrine Society clinical practice guideline. JCEM. 2010; 96(7):1911-30. PERFORMED BY: [place] [address] PATHOLOGIST POLYMERIZATION ENGINEER GATO PEÑA M.D. Performed By: #### E HEDY FLEMING, CMP #### [facility] [address] [place] [address] Vitamin D+Metabolites [Mass/ volume] in Serum or PlasmaOrdered By: Joe Davis on 08-16-2023 Vitamin D+Metabolites [Mass/Vol] 28.6 ng/mL 30-100 [facility] Comment on above: VITAMIN D STATUS 25( [place])VITAMIN D RANGE (ng/mL) Deficient <20 Insufficient 20 to <30Sufficient 30 to 100Reference: Lucio MF,Renée DRAKE, Francisco CARPIO, et al. Evaluation,treatment, and prevention of vitamin D deficiency; an Endocrine Society clinical practice guideline. JCEM. 2010; 96(7):1911-30. Alanine aminotransferase [En zymatic activity/volume] in Serum or PlasmaOrdered By: Nimesh Westfall on 08-15-2023 ALT [Catalytic activity/Vol] 33 U/L Normal 7-52 [facility] Comment on above: Performed By: #### E HEDY FLEMING, CMP #### [facility] [address] [place] [address] Albumin [Mass/volume] in Ser um or Plasma by Bromocresol green (BCG) dye binding methoOrdered By: Nimesh Westfall on 08-15-2023 Albumin BCG dye [Mass/Vol] 4.5 g/dL 3.5-5.7 [facility] Alkaline phosphatase [Enzyma tic activity/volume] in Serum or PlasmaOrdered By: Nimesh Westfall on 08-15-2023 ALP [Catalytic activity/Vol] 96 U/L Normal 34-104 [facility] Comment on above: Performed By: #### E HEDY FLEMING, CMP #### [address] Amphetamine Screen Ql (U)Ord ered By: Nimesh Westfall on 08-15-2023 Amphetamines Ql (U) Negative Negative [facility] Aspartate aminotransferase [ Enzymatic activity/volume] in Serum or PlasmaOrdered By: Nimesh Westfall on 08-15-2023 AST [Catalytic activity/Vol] 21 U/L Normal 13-39 [facility] Comment on above: Performed By: #### E LONNIE, CBC, CMP #### [address] Automated basophil %Ordered By: Nimesh Westfall on 08-15-2023 Basophils/100 WBC (Bld) 1.3 % Normal . [facility] Comment on above: Performed By: #### E LONNIE, CBC, CMP #### [address] Automated basophil countOrde red By: Nimesh Westfall on 08-15-2023 Basophils (Bld) [#/Vol] 0.1 10*3/uL Normal 0.0-0.2 [facility] Comment on above: Result Comment: PERF ORMED BY: [place] [address] PATHOLOGIST POLYMERIZATION ENGINEER GATO PEÑA M.D. Performed By: #### E LONNIE, CBC, CMP #### [address] Automated blood monocyte cou ntOrdered By: Nimesh Westfall on 08-15-2023 Monocytes (Bld) [#/Vol] 0.5 10*3/uL Normal 0.0-0.8 [facility] Comment on above: Performed By: #### E LONNIE, CBC, CMP #### [address] Automated eosinophil %Ordere d By: Nimesh Westfall on 08-15-2023 Eosinophils/100 WBC (Bld) 6.4 % Normal . [facility] Comment on above: Performed By: #### E LONNIE, CBC, CMP #### [address] Automated eosinophil countOr dered By: Nimesh Westfall on 08-15-2023 Eosinophils (Bld) [#/Vol] 0.3 10*3/uL Normal 0.0-0.45 [facility] Comment on above: Performed By: #### E LONNIE, CBC, CMP #### [facility] [address] Automated erythrocytes count in urine sediment (number/area)Ordered By: Nimesh Westfall on 08-15-2023 RBC Auto (Urine sed) [#/Area] None seen [HPF] 0-4 [facility] Automated leukocytes count i n urine sediment (number/area)Ordered By: Nimesh Westfall on 08-15-2023 WBC Auto (Urine sed) [#/Area] 3-4 [HPF] 0-4 [facility] Automated monocyte %Ordered By: Nimesh Westfall on 08-15-2023 Monocytes/100 WBC (Bld) 10.6 % Normal . [facility] Comment on above: Performed By: #### E LONNIE, CBC, CMP #### [facility] [address] [place] [address] Automated neutrophil %Ordere d By: Nimesh Westfall on 08-15-2023 Neutrophils/100 WBC (Bld) 45.1 % Normal . [facility] Comment on above: Performed By: #### E LONNIE, CBC, CMP #### [facility] [address] [place] [address] Automated urine color determ inationOrdered By: Nimesh Westfall on 08-15-2023 Color (U) Yellow Normal Yellow [facility] Comment on above: Order Comment: Name Collection Type:: Clean-Voided Midstream Performed By: #### E LONNIE, CBC, CMP #### [facility] [address] [place] [address] Barbiturates [Presence] in U rine by Screen methodOrdered By: Nimesh Westfall on 08-15-2023 Barbiturates Screen Ql (U) Negative Negative [facility] Benzodiazepines Screen Ql (U )Ordered By: Nimesh Westfall on 08-15-2023 Benzodiazepines Ql (U) Negative Negative [facility] Benzoylecgonine [Presence] i n Urine by Screen methodOrdered By: Nimesh Westfall on 08-15-2023 Benzoylecgonine Screen Ql (U) Negative Negative [facility] Bilirubin Test strip Ql (U)O rdered By: Nimesh Westfall on 08-15-2023 Bilirubin Ql (U) Negative Negative [facility] Bilirubin.total [Mass/volume ] in Serum or PlasmaOrdered By: Nimesh Westfall on 08-15-2023 Bilirubin [Mass/Vol] 0.3 mg/dL Normal 0.3-1.0 [facility] Comment on above: Performed By: #### E LONNIE, CBC, CMP #### [facility] [address] Calcium [Mass/volume] in Ser um or PlasmaOrdered By: Nimesh Westfall on 08-15-2023 Calcium [Mass/Vol] 9.4 mg/dL Normal 8.6-10.3 [facility] Comment on above: Performed By: #### E LONNIE, CBC, CMP #### [facility] [address] Cannabinoids [Presence] in U rine by Screen methodOrdered By: Nimesh Westfall on 08-15-2023 Cannabinoids Screen Ql (U) Negative Negative [facility] Comment on above: These are unconfirme d results and should not be used for legal purposes. Drug Cut-Off Concentration: AMPH 1000 ng/mL PJ 200 ng/mL BETSY 200 ng/mL COCM 300 ng/mL OP 300 ng/mL PCP 25 ng/mL THC 20 ng/mL Carbon dioxide, total [Moles /volume] in Serum or PlasmaOrdered By: Nimesh Westfall on 08-15-2023 CO2 [Moles/Vol] 25.3 mmol/L Normal 21.0-31.0 [facility] Comment on above: Performed By: #### E LONNIE, CBC, CMP #### [facility] [address] [place] [address] [place] Chloride [Moles/volume] in S kishan or PlasmaOrdered By: Nimesh Westfall on 08-15-2023 Chloride [Moles/Vol] 109 mmol/L High 98-107 [facility] Comment on above: Performed By: #### E LONNIE, CBC, CMP #### [facility] [address] [place] [address] [place] Complete Blood Count Auto Di ffon 08-15-2023 Mean Corpuscular HGB Conc 33.0 g/dL Normal 32.0-35.0 [facility] Comment on above: Performed By: #### E LONNIE, CBC, CMP #### [facility] [address] [place] [address] [place] Monocytes/100 WBC (Bld) 16.42 % Normal 0.00-20.00 [facility] Comment on above: Performed By: #### E LONNIE, CBC, CMP #### [facility] [address] [place] [address] NRBC% 0.1 /100{WBC} Normal 0-0.5 [facility] Comment on above: Performed By: #### E LONNIE, CBC, CMP #### [address] Comprehensive Metabolic Pane eusebia 08-15-2023 Albumin [Mass/Vol] 4.5 g/dL Normal 3.5-5.7 [facility] Comment on above: Performed By: #### E LONNIE, CBC, CMP #### [place] [address] [place] Creatinine Clr Calc Pharmacy 40.94 Normal [facility] Comment on above: Result Comment: PERF ORMED BY: [place] [address] PATHOLOGIST POLYMERIZATION ENGINEER GATO PEÑA M.D. Performed By: #### E LONNIE, CBC, CMP #### [facility] [address] [place] [address] [place] GFR/1.73 sq M.predicted MDRD (S/P/Bld) [Vol rate/Area] 47.997 mL/min/{1.73_m2} Normal The [facility] Comment on above: Performed By: #### E LONNIE, CBC, CMP #### [place] [address] [place] Creatinine [Mass/volume] in Serum or PlasmaOrdered By: Nimesh Westfall on 08-15-2023 Creatinine [Mass/Vol] 1.24 mg/dL High 0.60-1.20 [facility] Comment on above: Performed By: #### E LONNIE, CBC, CMP #### [place] [address] [place] Dipstick and Microscopicon 0 08-15-2023 Appearance (U) Clear Normal Clear The [facility] Comment on above: Order Comment: Name Collection Type:: Clean-Voided Midstream Performed By: #### E LONNIE, CBC, CMP #### [address] Bacteria,Urine None Seen Normal None Seen [facility] Comment on above: Order Comment: Name Collection Type:: Clean-Voided Midstream Performed By: #### E LONNIE, CBC, CMP #### [address] Bilirubin,Urine Negative Normal Negative The [facility] Comment on above: Order Comment: Name Collection Type:: Clean-Voided Midstream Performed By: #### E LONNIE, CBC, CMP #### [address] Glucose Ql (U) Normal Normal Normal [facility] Comment on above: Order Comment: Name Collection Type:: Clean-Voided Midstream Performed By: #### E LONNIE, CBC, CMP #### [address] Hyaline Casts,Urine None Seen Normal 0-8 [facility] Comment on above: Order Comment: Name Collection Type:: Clean-Voided Midstream Result Comment: PERF ORMED BY: [place] [address] PATHOLOGIST POLYMERIZATION ENGINEER GATO PEÑA M.D. Performed By: #### E LONNIE, CBC, CMP #### [address] Ketones Ql (U) Negative Normal Negative [facility] Comment on above: Order Comment: Name Collection Type:: Clean-Voided Midstream Performed By: #### E LONNIE, CBC, CMP #### [address] Leukocyte esterase Test strip Ql (U) 3+ High Negative [facility] Comment on above: Order Comment: Name Collection Type:: Clean-Voided Midstream Performed By: #### E LONNIE, CBC, CMP #### [facility] [address] [place] [address] [place] Nitrite,Urine Negative Normal Negative [facility] Comment on above: Order Comment: Name Collection Type:: Clean-Voided Midstream Performed By: #### E LONNIE, CBC, CMP #### [address] Occult Blood,Urine Negative Normal Negative [facility] Comment on above: Order Comment: Name Collection Type:: Clean-Voided Midstream Result Comment: PERF ORMED BY: [place] [address] PATHOLOGIST POLYMERIZATION ENGINEER GATO PEÑA M.D. Performed By: #### E LONNIE, CBC, CMP #### [place] [address] [place] Protein,Urine Negative Normal Negative [facility] Comment on above: Order Comment: Name Collection Type:: Clean-Voided Midstream Performed By: #### E LONNIE, CBC, CMP #### [address] RBC,Urine None Seen Normal 0-4 [facility] Comment on above: Order Comment: Name Collection Type:: Clean-Voided Midstream Performed By: #### E LONNIE, CBC, CMP #### [place] [address] [place] Specificy [place],Urine 1.005 Normal 1.00 1-1.03 0 [facility] Comment on above: Order Comment: Name Collection Type:: Clean-Voided Midstream Performed By: #### E LONNIE, CBC, CMP #### [address] Squamous Epithelial Cell,Urine None Seen Normal 0-2 [facility] Comment on above: Order Comment: Name Collection Type:: Clean-Voided Midstream Performed By: #### E LONNIE, CBC, CMP #### [address] Urobilinogen,Urine Normal Normal Normal [facility] Comment on above: Order Comment: Name Collection Type:: Clean-Voided Midstream Performed By: #### E LONNIE, CBC, CMP #### [place] [address] [place] WBC,Urine 3-4 Normal 0-4 [facility] Comment on above: Order Comment: Name Collection Type:: Clean-Voided Midstream Performed By: #### E LONNIE, CBC, CMP #### [address] Drug Screen,Urineon 08-15-19 24 Amphetamine Screen,Urine Negative Normal Negative [facility] Comment on above: Performed By: #### E LONNIE, CBC, CMP #### [address] Barbiturate Screen,Urine Negative Normal Negative [facility] Comment on above: Performed By: #### E LONNIE, CBC, CMP #### [address] Benzodiazepines Screen,Urine Negative Normal Negative [facility] Comment on above: Performed By: #### E LONNIE, CBC, CMP #### [address] Cannabinoid Screen,Urine Negative Normal Negative [facility] Comment on above: Result Comment: Thes e are unconfirmed results and should not be used for legal purposes. Drug Cut-Off Concentration: AMPH 1000 ng/mL PJ 200 ng/mL BETSY 200 ng/mL COCM 300 ng/mL OP 300 ng/mL PCP 25 ng/mL THC 20 ng/mL PERFORMED BY: [place] [address] PATHOLOGIST POLYMERIZATION ENGINEER GATO PEÑA M.D. Performed By: #### E LONNIE, CBC, CMP #### [address] Cocaine Screen,Urine Negative Normal Negative [facility] Comment on above: Performed By: #### E LONNIE, CBC, CMP #### [address] Opiate Screen,Urine Negative Normal Negative [facility] Comment on above: Performed By: #### E LONNIE, CBC, CMP #### [address] Phencyclidine Screen,Urine Negative Normal Negative [facility] Comment on above: Performed By: #### E LONNIE, CBC, CMP #### [address] Erythrocyte distribution wid th [Ratio] by Automated countOrdered By: Nimesh Westfall on 08-15-2023 Erythrocyte distribution width (RBC) [Ratio] 14.2 % Normal 11.9-15.3 [facility] Comment on above: Performed By: #### E LONNIE, CBC, CMP #### [address] Erythrocytes [#/volume] in B lood by Automated countOrdered By: Nimesh Westfall on 08-15-2023 RBC (Bld) [#/Vol] 3.95 10*6/uL Normal 3.60-5.00 [facility] Comment on above: Performed By: #### E LONNIE, CBC, CMP #### [address] Ethanol [Mass/volume] in Ser um or PlasmaOrdered By: Nimesh Westfall on 08-15-2023 Ethanol [Mass/Vol] mg/dL Normal [facility] Comment on above: Performed By: #### E LONNIE, CBC, CMP #### [address] Ethanol [Mass/Vol] TNP [facility] Comment on above: Test not performed Ethyl Alcohol Profileon 08-01 Percent Ethanol Not performed Normal [facility] Comment on above: Result Comment: PERF ORMED BY: [place] [address] PATHOLOGIST POLYMERIZATION ENGINEER GATO PEÑA M.D. Performed By: #### E LONNIE, CBC, CMP #### [facility] [address] Glucose [Mass/volume] in Ser um or PlasmaOrdered By: Nimesh Westfall on 08-15-2023 Glucose [Mass/Vol] 113 mg/dL High 70-100 [facility] Comment on above: ADA recommended refe rence rangeRandom Glucose Reference Range is dependent on time and content of last meal. Glucose of more than 200 mg/dL in a nonstressed, ambulatory subject supports the diagnosis of Diabetes Mellitus. Result Comment: [place] om Glucose Reference Range is dependent on time and content of last meal. Glucose of more than 200 mg/dL in a nonstressed, ambulatory subject supports the diagnosis of Diabetes Mellitus. ADA recommended reference range Performed By: #### E LONNIE, CBC, CMP #### [address] Hematocrit [Volume Fraction] of Blood by Automated countOrdered By: Nimesh Westfall on 08-15-2023 Hematocrit (Bld) [Volume fraction] 37.3 % Normal 34.0-46.4 [facility] Comment on above: Performed By: #### E LONNIE CBC, CMP #### [facility] [address] Hemoglobin [Mass/volume] in BloodOrdered By: Nimesh Westfall on 08-15-2023 Hemoglobin (Bld) [Mass/Vol] 12.3 g/dL Normal 11.8-15.4 [facility] Comment on above: Performed By: #### E LONNIE, CBC, CMP #### [facility] [address] Ketones Auto test strip (U) [Mass/Vol]Ordered By: Nimesh Westfall on 08-15-2023 Ketones (U) [Mass/Vol] Negative Negative [facility] - UrinalysisOrder ed By: Nimesh Westfall on 08-15-2023 Hyaline casts LM Ql (Urine sed) None seen [LPF] 0-8 [facility] Leukocytes [#/volume] correc cornelia for nucleated erythrocytes in Blood by Automated counOrdered By: Nimesh Westfall on 08-15-2023 WBC corrected for nucl RBC Auto (Bld) [#/Vol] 4.7 10*3/uL 3.8-11.6 [facility] Leukocytes [#/volume] in Blo od by Automated countOrdered By: Nimesh Westfall on 08-15-2023 WBC (Bld) [#/Vol] 4.7 10*3/uL Normal 3.8-11.6 [facility] Comment on above: Performed By: #### E LONNIE, CBC, CMP #### [place] [address] [place] Lymphocytes [#/volume] in Bl ood by Automated countOrdered By: Nimesh Westfall on 08-15-2023 Lymphocytes (Bld) [#/Vol] 1.7 10*3/uL Normal 1.00-4.8 [facility] Comment on above: Performed By: #### E LONNIE, CBC, CMP #### [place] [address] [place] Lymphocytes/100 leukocytes i n Blood by Automated countOrdered By: Nimesh Westfall on 08-15-2023 Lymphocytes/100 WBC (Bld) 36.6 % Normal . [facility] Comment on above: Performed By: #### E LONNIE, CBC, CMP #### [address] MCH [Entitic mass] by Automa cornelia countOrdered By: Nimesh Westfall on 08-15-2023 MCH (RBC) [Entitic mass] 31.2 pg Normal 24.7-34.3 [facility] Comment on above: Performed By: #### E LONNIE, CBC, CMP #### [address] MCHC Auto (RBC) [Mass/Vol]Or dered By: Nimesh Westfall on 08-15-2023 MCHC (RBC) [Mass/Vol] 33.0 g/dL 32.0-35.0 [facility] MCV [Entitic volume] by Auto mated countOrdered By: Nimesh Westfall on 08-15-2023 MCV (RBC) [Entitic vol] 94.5 fL Normal 80-100 [facility] Comment on above: Performed By: #### E LONNIE, CBC, CMP #### [facility] [address] Monocyte distribution width [Entitic volume] in Blood by AutomatedOrdered By: Nimesh Westfall on 08-15-2023 Monocyte distribution width Auto (Bld) [Entitic vol] 16.42 % 0.00-20.00 [facility] Neutrophils [#/volume] in Bl ood by Automated countOrdered By: Nimesh Westfall on 08-15-2023 Neutrophils (Bld) [#/Vol] 2.1 10*3/uL Normal 1.8-7.7 [facility] Comment on above: Performed By: #### E LONNIE, CBC, CMP #### [facility] [address] Nitrite Test strip Ql (U)Ord ered By: Nimesh Westfall on 08-15-2023 Nitrite Ql (U) Negative Negative [facility] No Panel InformationOrdered By: Nimesh Westfall on 08-15-2023 Estimated GFR (CKD-EPI) 47.997 mL/Min [facility] Creatinine Clearance (Chem 40.94 [facility] Nucleated erythrocytes [Pres ence] in Blood by Automated countOrdered By: Nimesh Westfall on 08-15-2023 Nucleated RBC Auto Ql (Bld) 0.1 /100{WBC} 0-0.5 [facility] Opiates [Presence] in Urine by Screen methodOrdered By: Nimesh Westfall on 08-15-2023 Opiates Screen Ql (U) Negative Negative [facility] Phencyclidine Screen Ql (U)O rdered By: Nimesh Westfall on 08-15-2023 Phencyclidine Ql (U) Negative Negative [facility] Platelet mean volume [Entiti c volume] in Blood by Automated countOrdered By: Nimesh Westfall on 08-15-2023 Platelet mean volume (Bld) [Entitic vol] 8.4 fL Normal 6.3-10.7 [facility] Comment on above: Performed By: #### E LONNIE, CBC, CMP #### [address] Platelets [#/volume] in Bloo d by Automated countOrdered By: Nimesh Westfall on 08-15-2023 Platelets (Bld) [#/Vol] 221 10*3/uL Normal 150-450 [facility] Comment on above: Performed By: #### E LONNIE CBC, CMP #### [address] Potassium [Moles/volume] in Serum or PlasmaOrdered By: Nimesh Westfall on 08-15-2023 Potassium [Moles/Vol] 4.1 mmol/L Normal 3.5-5.1 [facility] Comment on above: Performed By: #### E LONNIE CBC, CMP #### [address] Protein Auto test strip (U) [Mass/Vol]Ordered By: Nimesh Westfall on 08-15-2023 Protein (U) [Mass/Vol] Negative Negative [facility] Protein [Mass/volume] in Ser um or PlasmaOrdered By: Nimesh Westfall on 08-15-2023 Protein [Mass/Vol] 7.0 g/dL Normal 6.4-8.9 [facility] Comment on above: Performed By: #### E LONNIE CBC, CMP #### [address] Serum globulin measurement b y calculation (mass/volume)Ordered By: Nimesh Westfall on 08-15-2023 Globulin (S) [Mass/Vol] 2.5 g/dL Normal [facility] Comment on above: Performed By: #### E LONNIE CBC, CMP #### [address] Serum or plasma albumin/glob ulin mass ratioOrdered By: Nimesh Westfall on 08-15-2023 Albumin/Globulin [Mass ratio] 1.8 {ratio} Normal [facility] Comment on above: Performed By: #### E LONNIE CBC, CMP #### [address] [place] [address] [place] Serum or plasma anion gap de terminationOrdered By: Nimesh Westfall on 08-15-2023 Anion gap [Moles/Vol] 11.8 mmol/L Normal 6.0-15.0 [facility] Comment on above: Performed By: #### E LONNIE CBC, CMP #### [facility] [address] Sodium [Moles/volume] in Ser um or PlasmaOrdered By: Nimesh Westfall on 08-15-2023 Sodium [Moles/Vol] 142 mmol/L Normal 136-145 [facility] Comment on above: Performed By: #### E LONNIE CBC, CMP #### [address] Specific gravity Auto test s trip (U) [Rel density]Ordered By: Nimesh Westfall on 08-15-2023 Specific gravity (U) [Rel density] 1.005 1.001-1.03 0 [facility] Squamous epithelial cells de tection in urine sediment by light microscopyOrdered By: Nimesh Westfall on 08-15-2023 Epithelial cells.squamous LM Ql (Urine sed) None seen [HPF] 0-2 [facility] Urea nitrogen [Mass/volume] in Serum or PlasmaOrdered By: Nimesh Westfall on 08-15-2023 Urea nitrogen [Mass/Vol] 27 mg/dL High 7-25 [facility] Comment on above: Performed By: #### E LONNIE CBC, CMP #### [facility] [address] [place] [address] Urine bacteria detection by automated methodOrdered By: Nimesh Westfall on 08-15-2023 Bacteria Auto Ql (U) None seen None Seen [facility] Urine clarity by refractomet ry automatedOrdered By: Nimesh Westfall on 08-15-2023 Clarity Refractometry automated (U) Clear Clear [facility] Urine glucose measurement by automated test strip (mass/volume)Ordered By: Nimesh Westfall on 08-15-2023 Glucose Auto test strip (U) [Mass/Vol] Normal mg/dL Normal [facility] Urine hemoglobin detection b y automated test stripOrdered By: Nimesh Westfall on 08-15-2023 Hemoglobin Auto test strip Ql (U) Negative Negative [facility] Urine leukocyte esterase det ection by automated test stripOrdered By: Nimesh Westfall on 08-15-2023 Leukocyte esterase Auto test strip Ql (U) 3+ Negative [facility] Urine pH measurement by auto mated test stripOrdered By: Nimesh Westfall on 08-15-2023 pH (U) 7.0 [pH] Normal 5.0-9.0 [facility] Comment on above: Order Comment: Name Collection Type:: Clean-Voided Midstream Performed By: #### E LONNIE, CBC, CMP #### [facility] [address] Urobilinogen Auto test strip (U) [Mass/Vol]Ordered By: Nimesh Westfall on 08-15-2023 Urobilinogen (U) [Mass/Vol] Normal mg/dL Normal [facility] CNPEliazar 08-09-2023 CNPN Telephone (HNQ) -------- GAIL ALMEIDA ([id number]) 1955 F Date Time Provider Department 08/09/23 YANDEL DANIEL During your visit today, we recorded the following information about you: Nena Rodriguez 08/09/2023 9:45 AM Signed Person Calling: Margaux Diaz RN at assisted living facility Reason for Call: patient is going to need refills on levothyroxine and calcium carbonate. She was unsure if we would fill that request or her pcp Margaux: [phone] Pharmacy Name and # : [place] [address] - [address] [facility] - [phone] [address] [facility] [address] [facility] [address] Pt last seen: 06/28/2023 Radha Sewell, RN 08/09/2023 4:29 PM Signed Called [facility] Transferred to [facility]. No answer phone continued ringing no voicemail available. Radha Brice, RN 09/03/2023 8:00 AM Signed No return call for [place]ard[place]. Closing encounter. Allergies As of Date: 08/09/2023 [...] Fully Assessed Reason for Visit: Patient Question [8277] Prescriptions as of 09/03/2023 - calcium carbonate [...] mouth every 12 hours as needed. - znyzrf-phoxyvuw-aawqznj (ENZADYNE) 9,000-112,500- 112,500 unit capsule Take 1 [...] Encounter Status:Closed by RADHA BRICE on 09/03/23 [facility] No Panel Informationon 07-16 Type of [...] taken Amount of lidocaine used: 0.3 cc [facility] CNOVon 06-28-2023 CNOV Office Visit (OTOLMN ) -------- GAIL ALMEIDA ([id number]) 1955 F Date Time Provider Department 06/28/23 3:45 PM YANDEL DANIEL OTOLPR During your visit today, we recorded the following information about you: Fabienne Deleon OCCA 06/28/2023 3:36 PM Signed Tobacco Use: .25 packs/day, for 40 years. Types: Cigarettes Was smoking cessation packet given? Patient Declined Was a referral initiated?Patient declined. Yandel Daniel MD 06/28/2023 3:37 PM Signed [facility] Note CC: Post op of [...] by mouth every 12 hours as needed. mahozu-adirvdim-vhvyrqe (ENZADYNE) 9,000-112,500- 112,500 unit capsule Take 1 [...] will continu (more content not included)... [facility] CNPN Telephone (HNQ) -------- GAIL ALMEIDA ([id number]) 1955 F Date Time Provider Department 06/24/23 YANDEL DANIEL HNQ During your visit today, we recorded the following information about you: Nena Rodriguez 06/24/2023 11:32 AM Signed Person Calling: Susannah - Pharmacist at [facility] Reason for Call: Susannah called in to see if there is alternative product/brand for djmzcx-kguydbhk-vugevwe 9,000-112,500- 112,500 unit cap 1 capsule (ENZADYNE) that Dr. Daniel would be comfortable prescribing. The current one sent to the pharmacy, they do not have Pt Phone #: [phone] Pharmacy Name and # : [facility] [place] [address] - [address] [facility] [phone] Pt last seen: 06/18/2023 Amy Diaz, TAWANNA [...] Date Reviewed: 06/22/2023 Reviewed by: Ravinder Mejias, TAWANNA - Fully Assessed Reason for Visit: Medication [...] mouth every 12 hours as needed. - kbbvjy-jdzvruil-uoypppj (ENZADYNE) 9,000-112,500- 112,500 unit capsule Take 1 [...] Encounter Status:Closed [facility] AMY NG [facility] HNO ID: [id number] Author: YANDEL DANIEL MD Service: Otolaryngology Author [...] (surgical) FOLLOW-UP APPOINTMENTS ALREADY SCHEDULED WITH A PROVIDER: Future Appointments Date Time Provider Department [...] nasal spray folic acid 800 mcg tablet ozthea-zgjknfqs-heuywtu 9,000-112,500- 112,500 unit capsule Commonly known as: [...] mcg (200 unit) per tablet Generic drug: qopezpr-zhyqcmzzq-ddybwp n D3 * QUEtiapine XR 400 mg [...] ROXICODONE Ta (more content not included)... Normal [facility] CONSULTon 06-21-2023 CONSULT HNO ID: [id number] Author: MARIAH FOWLER MD Service: Hospital Medicine [...] disorder On Topiramate 25mg daily Quetiapine 12.5/12.5/400 [place] 150mg BID Clonidine 0.1mg po daily Amantadine [...] as needed., Disp: , Rfl: , 06/17/2023 tgvrvy-kepgpjyy-owqtxvt (ENZADYNE) 9,000-112,500- 112,500 unit capsule, Take 1 capsule by mouth daily with food., Disp: , Rfl: (more content not included)... Normal [facility] CYSTATIN Con 06-21-2023 Cystatin C [Mass/Vol] 1.84 mg/L High 0.61-0.95 [facility] Comment on above: Order Comment: Speci men Type: BLOOD SPECIMENOrdering Facility: [facility] Address: [address] [place] [address] Performed By: #### 2 4362-6, CYSTC ####[facility] LABIA [id number] [place] [address] [place] CYSTATIN C EGFR 31 mL/min/1.73m??? Low >=60 C [facility] Comment on above: Order Comment: Speci men Type: BLOOD SPECIMENOrdering Facility: [facility] Address: [address] [place] [address] Result Comment: Leanna mated Glomerular Filtration Rate [...] GFR. Performed By: #### 2 4362-6, CYSTC ####[facility] [id number] [place] [address] [place] Calcium.ionized [Moles/Vol]o n 06-21-2023 Calcium.ionized (Bld) [Mass/Vol] 1.27 mmol/L Normal 1.08-1.30 [facility] Comment on above: Order Comment: Speci men Type: BLOOD SPECIMENOrdering Facility: [facility] Address: [address] [place] [address] Performed By: #### 1 995-0 ####[facility] [id number] [place] [address] [place] Calcium.ionized adjusted to pH 7.4 (Bld) [Moles/Vol] 1.29 mmol/L Normal 1.08-1.30 [facility] Comment on above: Order Comment: Speci men Type: BLOOD SPECIMENOrdering Facility: [facility] Address: [place] [address] Performed By: #### 1 995-0 ####[facility] LABCLIA [id number] [place] [address] [place] NURSING PROGon 06-21-2023 NURSING PROG HNO ID: [id number] Author: AKIKO LONG RN Service: ? Author Type: Registered Nurse Type: Nursing Progress Note Filed: 06/21/2023 12:54 Note Text: Other: [address] Daniel, pt concerned about getting a ride set up to go home today, nursing concerned that ENDO is consulted now, Mc says pt can go home and follow up as outpatient with Endocrinology, will page Dr Kody Terrell [facility] Renal function 2000 panelon 06-21-2023 Albumin [Mass/Vol] 4.1 g/dL Normal 3.9-4.9 [facility] Comment on above: Order Comment: Speci men Type: BLOOD SPECIMENOrdering Facility: [facility] Address: [place] [address] Performed By: #### 2 4362-6, CYSTC ####[facility] LABCLIA [id number] [place] [address] [place] Anion gap [Moles/Vol] 13 mmol/L Normal 9-18 [facility] Comment on above: Order Comment: Speci men Type: BLOOD SPECIMENOrdering Facility: [facility] Address: [place] [address] Performed By: #### 2 4362-6, CYSTC ####[facility] LABCLIA [id number] [place] [address] [place] Calcium [Mass/Vol] 9.6 mg/dL Normal 8.5-10.2 [facility] Comment on above: Order Comment: Speci men Type: BLOOD SPECIMENOrdering Facility: [facility] Address: [address] [place] [address] Performed By: #### 2 4362-6, CYSTC ####[facility] LABCLIA [id number] [place] [address] [place] Chloride [Moles/Vol] 104 mmol/L Normal 97-105 [facility] Comment on above: Order Comment: Speci men Type: BLOOD SPECIMENOrdering Facility: [facility] Address: [address] [place] [address] Performed By: #### 2 4362-6, CYSTC ####[facility] LABCLIA [id number] [place] [address] [place] CO2 [Moles/Vol] 25 mmol/L Normal 22-30 [facility] Comment on above: Order Comment: Speci men Type: BLOOD SPECIMENOrdering Facility: [facility] Address: [address] [place] [address] Performed By: #### 2 4362-6, CYSTC ####[facility] LABCLIA [id number] [place] [address] [place] Creatinine [Mass/Vol] 1.20 mg/dL High 0.58-0.96 [facility] Comment on above: Order Comment: Speci men Type: BLOOD SPECIMENOrdering Facility: [facility] Address: [address] [place] [address] Performed By: #### 2 4362-6, CYSTC ####[facility] LABCLIA [id number] [place] [address] [place] Creatinine and Glomerular filtration rate.predicted panel (S/P/Bld) 50 mL/min/1.73m??? Low >=60 [facility] Comment on above: Order Comment: Speci men Type: BLOOD SPECIMENOrdering Facility: [facility] Address: [address] [place] [address] Result Comment: Leanna mated Glomerular Filtration Rate [...] Performed By: #### 2 4362-6, CYSTC ####[facility] LABIA [id number] [place] [address] [place] Glucose [Mass/Vol] 161 mg/dL High 74-99 [facility] Comment on above: Order Comment: Pio espino Type: BLOOD SPECIMENOrdering Facility: [facility] Address: [address] [place] [address] Result Comment: The [employer] Diabetes Association (ADA) provides guidance for cutoff [...] Standards of Medical Care in Diabetes 2016, [employer] Diabetes Association. Diabetes Care. 2016.39(Suppl 1). Performed By: #### 2 4362-6, CYSTC ####[facility] LABIA [id number] [place] [address] [place] Phosphate [Mass/Vol] 4.2 mg/dL Normal 2.7-4.8 [facility] Comment on above: Order Comment: Pio espino Type: BLOOD SPECIMENOrdering Facility: [facility] Address: [address] [place] [address] Performed By: #### 2 4362-6, CYSTC ####[facility] LABIA [id number] [place] [address] [place] Potassium [Moles/Vol] 4.0 mmol/L Normal 3.7-5.1 [facility] Comment on above: Order Comment: Speci men Type: BLOOD SPECIMENOrdering Facility: [facility] Address: [address] [place] [address] Performed By: #### 2 4362-6, CYSTC ####[facility] LABCLIA [id number] [place] [address] [place] Sodium [Moles/Vol] 142 mmol/L Normal 136-144 [facility] Comment on above: Order Comment: Speci men Type: BLOOD SPECIMENOrdering Facility: [facility] Address: [address] [place] [address] Performed By: #### 2 4362-6, CYSTC ####[facility] LABCLIA [id number] [place] [address] [place] Urea nitrogen [Mass/Vol] 26 mg/dL High 7-21 [facility] Comment on above: Order Comment: Speci men Type: BLOOD SPECIMENOrdering Facility: [facility] Address: [address] [place] [address] Performed By: #### 2 4362-6, CYSTC ####[facility] LABCLIA [id number] [place] [address] [place] Urinalysis complete panel (U )on 06-21-2023 Bacteria LM.HPF (Urine sed) [#/Area] Negative Normal Negative [facility] Comment on above: Order Comment: Speci men Type: URINE SPECIMENOrdering Facility: [facility] Address: [address] [place] [address] Performed By: #### 2 4356-8 ####[facility] LABCLIA [id number] [place] [address] [place] Bilirubin Ql (U) Negative Normal Negative [facility] Comment on above: Order Comment: Speci men Type: URINE SPECIMENOrdering Facility: [facility] Address: [address] [place] [address] Performed By: #### 2 4356-8 ####[facility] LABCLIA [id number] [place] [address] [place] Clarity (Unsp spec) Clear Normal Clear [facility] Comment on above: Order Comment: Speci men Type: URINE SPECIMENOrdering Facility: [facility] Address: [address] [place] [address] Performed By: #### 2 4356-8 ####[facility] LABCLIA [id number] [place] [address] [place] Color (U) Yellow Normal Yellow [facility] Comment on above: Order Comment: Speci men Type: URINE SPECIMENOrdering Facility: [facility] Address: [address] [place] [address] Performed By: #### 2 4356-8 ####[facility] LABIA [id number] [place] [address] [place] Epithelial cells LM.HPF (Urine sed) [#/Area] Few Normal [facility] Comment on above: Order Comment: Speci men Type: URINE SPECIMENOrdering Facility: [facility] Address: [address] [place] [address] Performed By: #### 2 4356-8 ####[facility] LABCLIA [id number] [place] [address] [place] Glucose Test strip (U) [Mass/Vol] Negative Normal Negative [facility] Comment on above: Order Comment: Speci men Type: URINE SPECIMENOrdering Facility: [facility] Address: [address] [place] [address] Performed By: #### 2 4356-8 ####[facility] LABCLIA [id number] [place] [address] [place] Hemoglobin Ql (U) Negative Normal Negative [facility] Comment on above: Order Comment: Speci men Type: URINE SPECIMENOrdering Facility: [facility] Address: [address] [place] [address] Performed By: #### 2 4356-8 ####[facility] LABCLIA [id number] [place] [address] [place] Hyaline casts (Urine sed) [#/Area] 0 /[LPF] Normal 0 /LPF [facility] Comment on above: Order Comment: Speci men Type: URINE SPECIMENOrdering Facility: [facility] Address: [address] [place] [address] Performed By: #### 2 4356-8 ####[facility] LABCLIA [id number] [place] [address] [place] Ketones Ql (U) Negative Normal Negative [facility] Comment on above: Order Comment: Speci men Type: URINE SPECIMENOrdering Facility: [facility] Address: [address] [place] [address] Performed By: #### 2 4356-8 ####[facility] LABCLIA [id number] [place] [address] [place] Leukocyte esterase Test strip Ql (U) 1+ Abnormal Negative [facility] Comment on above: Order Comment: Speci men Type: URINE SPECIMENOrdering Facility: [facility] Address: [address] [place] [address] Performed By: #### 2 4356-8 ####[facility] LABCLIA [id number] [place] [address] [place] Nitrite Ql (U) Negative Normal Negative [facility] Comment on above: Order Comment: Speci men Type: URINE SPECIMENOrdering Facility: [facility] Address: [address] [place] [address] Performed By: #### 2 4356-8 ####[facility] LABCLIA [id number] [place] [address] [place] pH (U) 7.0 [pH] Normal <8.5 [facility] Comment on above: Order Comment: Speci men Type: URINE SPECIMENOrdering Facility: [facility] Address: [address] [place] [address] Performed By: #### 2 4356-8 ####[facility] LABIA [id number] [place] [address] [place] Protein (U) [Mass/Vol] Negative Normal Negative [facility] Comment on above: Order Comment: Speci men Type: URINE SPECIMENOrdering Facility: [facility] Address: [address] [place] [address] Performed By: #### 2 4356-8 ####[facility] LABIA [id number] [place] [address] [place] RBC LM.HPF (Urine sed) [#/Area] 0-2 /HPF Normal 0-2 /HPF [facility] Comment on above: Order Comment: Speci men Type: URINE SPECIMENOrdering Facility: [facility] Address: [address] [place] [address] Performed By: #### 2 4356-8 ####[facility] [id number] [place] [address] [place] Specific gravity (U) [Rel density] 1.009 Normal 1.005-1.03 0 [facility] Comment on above: Order Comment: Speci men Type: URINE SPECIMENOrdering Facility: [facility] Address: [address] [place] [address] Performed By: #### 2 4356-8 ####[facility] LABIA [id number] [place] [address] [place] Urobilinogen Ql (U) 0.2 EU/dL Normal 0.2-1.0 EU/dL [facility] Comment on above: Order Comment: Speci men Type: URINE SPECIMENOrdering Facility: [facility] Address: [address] [place] [address] Performed By: #### 2 4356-8 ####[facility] LABCLIA [id number] [place] [id number] [place] WBC LM.HPF (Urine sed) [#/Area] 0-5 /HPF Normal 0-5 /HPF [facility] Comment on above: Order Comment: Speci men Type: URINE SPECIMENOrdering Facility: [facility] Address: [address] [place] [id number] Performed By: #### 2 4356-8 ####[facility] LABIA [id number] [place] [id number] [place] Basic metabolic 2000 panelon 06-20-2023 Anion gap [Moles/Vol] 10 mmol/L Normal 9-18 [facility] Comment on above: Order Comment: Speci men Type: BLOOD SPECIMENOrdering Facility: [facility] Address: [address] [place] [address] Performed By: #### 2 777-1, 273-8, 65760-0, 16192-6 ####[facility] LABIA [id number] [place] [address] [place] Calcium [Mass/Vol] 10.8 mg/dL High 8.5-10.2 [facility] Comment on above: Order Comment: Speci men Type: BLOOD SPECIMENOrdering Facility: [facility] Address: [address] [place] [id number] Performed By: #### 2 777-1, 273-8, 65043-8, 46234-2 ####[facility] LABIA [id number] [place] [id number] [place] Chloride [Moles/Vol] 104 mmol/L Normal 97-105 [facility] Comment on above: Order Comment: Speci men Type: BLOOD SPECIMENOrdering Facility: [facility] Address: [address] [place] [address] Performed By: #### 2 777-1, 2731-01, , ####[facility] LABCLIA [id number] [place] [address] [place] CO2 [Moles/Vol] 26 mmol/L Normal 22-30 [facility] Comment on above: Order Comment: Speci men Type: BLOOD SPECIMENOrdering Facility: [facility] Address: [address] [place] [address] Performed By: #### 2 777-1, 8, , ####[facility] LABCLIA [id number] [place] [address] [place] Creatinine [Mass/Vol] 1.27 mg/dL High 0.58-0.96 [facility] Comment on above: Order Comment: Speci men Type: BLOOD SPECIMENOrdering Facility: [facility] Address: [address] [place] [address] Performed By: #### 2 777-1, 2731-01, , ####[facility] LABCLIA [id number] [place] [address] [place] Creatinine and Glomerular filtration rate.predicted panel (S/P/Bld) 47 mL/min/1.73m??? Low >=60 [facility] Comment on above: Order Comment: Speci men Type: BLOOD SPECIMENOrdering Facility: [facility] Address: [address] [place] [address] Result Comment: Leanna mated Glomerular Filtration Rate [...] actual GFR. Performed By: #### 2 777-1, 2731-01, , 15843-2 ####[facility] LABCLIA [id number] [place] [address] [place] Glucose [Mass/Vol] 113 mg/dL High 74-99 [facility] Comment on above: Order Comment: Speci men Type: BLOOD SPECIMENOrdering Facility: [facility] Address: [address] [place] [address] Result Comment: The [employer] Diabetes Association (ADA) provides guidance for cutoff [...] Standards of Medical Care in Diabetes 2016, [employer] Diabetes Association. Diabetes Care. 2016.39(Suppl 1). Performed By: #### 2 777-1, 8, , 80207-0 ####[facility] LABCLIA [id number] [place] [address] [place] Potassium [Moles/Vol] 4.0 mmol/L Normal 3.7-5.1 [facility] Comment on above: Order Comment: Speci men Type: BLOOD SPECIMENOrdering Facility: [facility] Address: [address] [place] [address] Performed By: #### 2 777-1, 2731-01, , 79566-0 ####[facility] LABCLIA [id number] [place] [address] [place] Sodium [Moles/Vol] 140 mmol/L Normal 136-144 [facility] Comment on above: Order Comment: Speci men Type: BLOOD SPECIMENOrdering Facility: [facility] Address: [address] [place] [address] Performed By: #### 2 777-1, 2731-01, , 44876-9 ####[facility] LABCLIA [id number] [place] [address] [place] Urea nitrogen [Mass/Vol] 26 mg/dL High 7-21 [facility] Comment on above: Order Comment: Speci men Type: BLOOD SPECIMENOrdering Facility: [facility] Address: [address] [place] [address] Performed By: #### 2 777-1, 2730-8, , ####[facility] LABIA [id number] [place] [address] [place] CBC panel Auto (Bld)on 06-20 Erythrocyte distribution width (RBC) [Ratio] 13.3 % Normal 11.5-15.0 [facility] Comment on above: Order Comment: Speci men Type: BLOOD SPECIMENOrdering Facility: [facility] Address: [address] [place] [address] Performed By: #### 2 731-8, 65022-9 ####[facility] LABIA [id number] [place] [address] [place] Hematocrit (Bld) [Volume fraction] 42.6 % Normal 36.0-46.0 [facility] Comment on above: Order Comment: Speci men Type: BLOOD SPECIMENOrdering Facility: [facility] Address: [address] [place] [address] Performed By: #### 2 731-8, 31273-9 ####[facility] LABIA [id number] [place] [id number] [place] Hemoglobin (Bld) [Mass/Vol] 14.0 g/dL Normal 11.5-15.5 [facility] Comment on above: Order Comment: Speci men Type: BLOOD SPECIMENOrdering Facility: [facility] Address: [address] [place] [address] Performed By: #### 2 731-8, 87179-5 ####[facility] LABIA [id number] [place] [address] [place] MCH (RBC) [Entitic mass] 31.7 pg Normal 26.0-34.0 [facility] Comment on above: Order Comment: Speci men Type: BLOOD SPECIMENOrdering Facility: [facility] Address: [address] [place] [address] Performed By: #### 2 731-8, 52310-0 ####[facility] LABIA [id number] [place] [address] [place] MCHC (RBC) [Mass/Vol] 32.9 g/dL Normal 30.5-36.0 [facility] Comment on above: Order Comment: Speci men Type: BLOOD SPECIMENOrdering Facility: [facility] Address: [address] [place] [address] Performed By: #### 2 731-8, 96851-7 ####[facility] [id number] [place] [address] [place] MCV (RBC) [Entitic vol] 96.4 fL Normal 80.0-100.0 [facility] Comment on above: Order Comment: Speci men Type: BLOOD SPECIMENOrdering Facility: [facility] Address: [address] [place] [address] Performed By: #### 2 731-8, 99794-9 ####[facility] LABIA [id number] [place] [address] [place] Nucleated RBC (Bld) [#/Vol] 10*3/uL Normal <0.01 [facility] Comment on above: Order Comment: Speci men Type: BLOOD SPECIMENOrdering Facility: [facility] Address: [address] [place] [address] Performed By: #### 2 731-8, 81587-8 ####[facility] LABIA [id number] [place] [address] [place] Platelet mean volume (Bld) [Entitic vol] 10.1 fL Normal 9.0-12.7 [facility] Comment on above: Order Comment: Speci men Type: BLOOD SPECIMENOrdering Facility: [facility] Address: [address] [place] [address] Performed By: #### 2 731-8, 30413-4 ####[facility] LABCLIA [id number] [place] [address] [place] Platelets (Bld) [#/Vol] 201 10*3/uL Normal 150-400 [facility] Comment on above: Order Comment: Speci men Type: BLOOD SPECIMENOrdering Facility: [facility] Address: [address] [place] [address] Performed By: #### 2 731-8, 34207-2 ####[facility] LABCLIA [id number] [place] [address] [place] RBC (Bld) [#/Vol] 4.42 10*6/uL Normal 3.90-5.20 [facility] Comment on above: Order Comment: Speci men Type: BLOOD SPECIMENOrdering Facility: [facility] Address: [address] [place] [address] Performed By: #### 2 731-8, 68363-6 ####[facility] LABCLIA [id number] [place] [address] [place] WBC (Bld) [#/Vol] 7.26 10*3/uL Normal 3.70-11.00 [facility] Comment on above: Order Comment: Speci men Type: BLOOD SPECIMENOrdering Facility: [facility] Address: [address] [place] [address] Performed By: #### 2 731-8, 93229-2 ####[facility] LABCLIA [id number] [place] [address] [place] Calcium.ionized [Moles/Vol]o n 06-20-2023 Calcium.ionized (Bld) [Mass/Vol] 1.37 mmol/L High 1.08-1.30 [facility] Comment on above: Order Comment: Speci men Type: BLOOD SPECIMENOrdering Facility: [facility] Address: [address] [place] [address] Performed By: #### 1 995-0 ####[facility] LABIA [id number] [place] [address] [place] Calcium.ionized adjusted to pH 7.4 (Bld) [Moles/Vol] 1.38 mmol/L High 1.08-1.30 [facility] Comment on above: Order Comment: Speci men Type: BLOOD SPECIMENOrdering Facility: [facility] Address: [address] [place] [address] Performed By: #### 1 995-0 ####[facility] LABIA [id number] [place] [address] [place] Calcium.ionized (Bld) [Mass/Vol] 1.38 mmol/L High 1.08-1.30 [facility] Comment on above: Order Comment: Speci men Type: BLOOD SPECIMENOrdering Facility: [facility] Address: [address] [place] [address] Performed By: #### 1 995-0 ####[facility] LABIA [id number] [place] [address] [place] Calcium.ionized adjusted to pH 7.4 (Bld) [Moles/Vol] 1.40 mmol/L High 1.08-1.30 [facility] Comment on above: Order Comment: Speci men Type: BLOOD SPECIMENOrdering Facility: [facility] Address: [address] [place] [address] Performed By: #### 1 995-0 ####[facility] LABIA [id number] [place] [address] [place] Magnesium SerPl-mCncon 06-20 Magnesium [Mass/Vol] 1.8 mg/dL Normal 1.7-2.3 [facility] Comment on above: Order Comment: Speci men Type: BLOOD SPECIMENOrdering Facility: [facility] Address: [address] [place] [address] Performed By: #### 2 777-1, 273-8, , 90209-8 ####[facility] LABCLIA [id number] [place] [id number] [place] PTH-Intact SerPl-mCncon 06-03 Parathyrin.intact [Mass/Vol] pg/mL Low 15-65 [facility] Comment on above: Order Comment: Speci men Type: BLOOD SPECIMENOrdering Facility: [facility] Address: [address] [place] [address] Performed By: #### 2 731-8, 31097-9 ####[facility] LABCLIA [id number] [address] [place] Result Comment: Resu lt rechecked. Performed By: #### 2 777-1, 8, , 27192-3 ####[facility] LABCLIA [id number] [place] [id number] [place] Phosphate SerPl-mCncon 06-20 Phosphate [Mass/Vol] 4.9 mg/dL High 2.7-4.8 [facility] Comment on above: Order Comment: Speci men Type: BLOOD SPECIMENOrdering Facility: [facility] Address: [address] [place] [address] Performed By: #### 2 777-1, 273-8, , 30706-7 ####[facility] LABCLIA [id number] [place] [id number] [place] CNPNon 06-19-2023 CNPN Telephone (HN) -------- GAIL ALMEIDA ([id number]) 1955 F Date Time Provider Department 06/19/23 YANDEL DANIEL During your visit today, we recorded the following information about you: Nena Rodriguez 06/19/2023 9:56 AM Signed Person Calling: Margaux - [facility] at [facility] Reason for Call: Margaux called wanting to check in on how the patient is doing after surgery. She also wanted to know if the patient was still planning on being discharged today Margaux: [phone] Pt last seen: 06/18/23 Nena Rodriguez Allergies [...] Date Reviewed: 06/18/2023 Reviewed by: Jonathan Valencia, RN - Fully Assessed Reason for Visit: [...] mouth every 12 hours as needed. - jxhrtd-pdndwloe-kiziylz (ENZADYNE) 9,000-112,500- 112,500 unit capsule Take 1 [...] (hypertension) [I10] (more content not included)... Normal [facility] Calcium.ionized [Moles/Vol]o n 06-19-2023 Calcium.ionized (Bld) [Mass/Vol] 1.43 mmol/L High 1.08-1.30 [facility] Comment on above: Order Comment: Speci men Type: BLOOD SPECIMENOrdering Facility: [facility] Address: [address] [place] [address] Performed By: #### 1 995-0 ####[facility] LABCLIA [id number] [place] [address] [place] Calcium.ionized adjusted to pH 7.4 (Bld) [Moles/Vol] 1.43 mmol/L High 1.08-1.30 [facility] Comment on above: Order Comment: Speci men Type: BLOOD SPECIMENOrdering Facility: [facility] Address: [address] [place] [address] Performed By: #### 1 995-0 ####[facility] LABIA [id number] [place] [address] [place] Calcium.ionized (Bld) [Mass/Vol] 1.37 mmol/L High 1.08-1.30 [facility] Comment on above: Order Comment: Speci men Type: BLOOD SPECIMENOrdering Facility: [facility] Address: [address] [place] [address] Performed By: #### 1 995-0 ####[facility] LABIA [id number] [place] [address] [place] Calcium.ionized adjusted to pH 7.4 (Bld) [Moles/Vol] 1.35 mmol/L High 1.08-1.30 [facility] Comment on above: Order Comment: Speci men Type: BLOOD SPECIMENOrdering Facility: [facility] Address: [address] [place] [address] Performed By: #### 1 995-0 ####[facility] LABIA [id number] [place] [address] [place] Calcium.ionized (Bld) [Mass/Vol] 1.28 mmol/L Normal 1.08-1.30 [facility] Comment on above: Order Comment: Speci men Type: BLOOD SPECIMENOrdering Facility: [facility] Address: [address] [place] [address] Performed By: #### 1 995-0 ####[facility] LABCLIA [id number] [place] [address] [place] Calcium.ionized adjusted to pH 7.4 (Bld) [Moles/Vol] 1.27 mmol/L Normal 1.08-1.30 [facility] Comment on above: Order Comment: Speci men Type: BLOOD SPECIMENOrdering Facility: [facility] Address: [address] [place] [address] Performed By: #### 1 995-0 ####[facility] LABIA [id number] [place], [place] [address] [place] Calcium.ionized (Bld) [Mass/Vol] 1.27 mmol/L Normal 1.08-1.30 [facility] Comment on above: Order Comment: Speci men Type: BLOOD SPECIMENOrdering Facility: [facility] Address: [address] [place] [address] Performed By: #### 1 995-0 ####[facility] [id number] [place] [address] [place] Calcium.ionized adjusted to pH 7.4 (Bld) [Moles/Vol] 1.24 mmol/L Normal 1.08-1.30 [facility] Comment on above: Order Comment: Speci men Type: BLOOD SPECIMENOrdering Facility: [facility] Address: [address] [place] [address] Performed By: #### 1 995-0 ####[facility] [id number] [place] [address] [place] [facility] Parathyrin.intact [Mass/Vol] 6 pg/mL Low 15-65 [facility] Comment on above: Order Comment: Speci men Type: BLOOD SPECIMEN [facility] Address: [address] [place] [address] Performed By: #### 2 731-8 #### [facility] CLIA [id number] [address] [facility] [id number] [place] [address] [place] ANES POSTPROC EVALon 024 ANES POSTPROC EVAL HNO ID: [id number] Author: LU CAREY MD Service: ? Author Type: Anesthesiologist Type: Anesthesia Postprocedure Evaluation Filed: 06/18/2023 18:05 Note Text: POST ANESTHESIA EVALUATION NOTE : 1955 Procedure Summary Date: 06/18/23 Room / Location: [address] Anesthesia Start: 1159 Anesthesia Stop: 1555 [...] June 18, 2023 TIME: 6:05 PM CSN: [id number] Normal [facility] ANES PRE-OPon 06-18-2023 ANES PRE-OP HNO ID: [id number] Author: JANETH VARGAS DO Service: ? Author Type: Physician Type: Anesthesia Preprocedure Evaluation Filed: 06/18/2023 12:51 Note Text: ANESTHESIOLOGY DAY OF SURGERY NOTE : 1955 Procedure Information Date/Time: 06/18/23 1045 Procedure: THYROIDECTOMY TOTAL (Thyroid) Location: [place] [address] / [facility] Surgeons: Ynadel Daniel MD Estimated body mass index is [...] and consent discussed: yes. Patient / Responsible Republican agrees to proceed: yes Patient / Surrogate [...] June 18, 2023 TIME: 9:48 AM CSN: [id number] Normal [facility] BRIEF OP NOTon 06-18-2023 BRIEF OP NOT HNO ID: [id number] Author: DAKOTA SMTIH MD Service: Otolaryngology Author Type: Resident Type: Brief Op Note Filed: 06/18/2023 15:30 Note Text: BRIEF OPERATIVE NOTE Otorhinolaryngology LOG ID: [id number] Surgery / Procedure Date: 06/18/2023 Incision / Procedure Start Time: 12:35 PM Incision Close / Procedure End Time: 3:17 PM Procedure(s): Procedure(s) and Anesthesia Type: * THYROIDECTOMY TOTAL - General Total thyroidectomy with removal of substernal goiter Parathyroid autoimplantation into SCM x2 CROW-AF parathyroid detection Surgeon(s) / Proceduralist(s) and Fiberglass Product Tester(s): Surgeon(s) and Role: * Yandel Daniel MD [...] 3:29 PM Click to page Please page [phone] after 5pm and on weekends Normal [facility] CONSULT PROGon 06-18-2023 CONSULT PROG HNO ID: [id number] Author: LYDIA MACK [facility] Service: Pharmacy Author Type: Pharmacist [...] optimization service (From admission, onward) Start Ordered 06/18/232099 famotidine 20 mg tab(s) (PEPCID) 2 TIMES DAILY Question: Pharmacist may modify dose per [facility] dose optimization consult agreement Answer: Yes 06/18/23 1911 06/18/23 1600 ceFAZolin iv piggyback 2 g in D5W (iso-osmotic) 100 mL (ANCEF) EVERY 8 HOURS Question Answer Comment Antimicrobial indication Prophylaxis Pharmacist may modify dose per [facility] dose optimization consult agreement Yes 06/18/23 1555 For medications which dose is dependent on renal function, a pharmacist will monitor renal function daily and adjust doses accordingly. Any dose adjustments needed based on changes in indication will require an LIP to enter a new order. Managing Pharmacist: Lydia Mack RPh, available at: Ext [phone] If you have any questions, please contact Pharmacy at Ext [phone]. CrCl cannot be calculated (Patient's most recent [...] RPh June 18, 2023 7:31 PM Normal [facility] Calcium.ionized [Moles/Vol]o n 06-18-2023 Calcium.ionized (Bld) [Mass/Vol] 1.40 mmol/L High 1.08-1.30 [facility] Comment on above: Order Comment: Speci men Type: BLOOD SPECIMEN [facility] Address: [address] [place] [address], [place] [address] Performed By: #### 1 995-0 #### [facility] CLIA [id number] [address] [place], [place] [address] [address] [place] Calcium.ionized adjusted to pH 7.4 (Bld) [Moles/Vol] 1.30 mmol/L Normal 1.08-1.30 [facility] Comment on above: Order Comment: Speci men Type: BLOOD SPECIMEN [facility] Address: [address] [place] [address] Performed By: #### 1 995-0 #### [facility] CLIA [id number] [address] [place] [address] [place] NURSING PROGon 06-18-2023 NURSING PROG HNO ID: [id number] Author: ALETHEA OLIVEROS RN Service: Nursing Author Type: Registered Nurse Type: Nursing Progress Note Filed: 06/18/2023 19:22 Note Text: Pt takes [place] at nite. Rn paged [employer] stations superintendent to make aware. Awaiting orders. Continue to monitor Normal [facility] NURSING PROG HNO ID: [id number] Author: ALETHEA OLIVEROS RN Service: Nursing Author [...] note was completed by: Alethea Oliveros Normal [facility] OPERATIVE NOon 06-18-2023 OPERATIVE NO HNO ID: [id number] Author: YANDEL DANIEL MD Service: Otolaryngology Author Type: Physician Type: Operative Report Filed: 06/19/2023 14:16 Note Text: [place] [address] or ([phone] [facility] N F O R M A T I O N -------- OPERATIVE REPORT Patient Name: Gail Almeida Date of : 1955 Log ID: [id number] Date: 06/18/2023 Surgeon:Yandel Daniel MD Resident Surgeon(s): [...] permanent pathology. (more content not included)... Normal [facility] SURGICAL PATHOLOGYon 024 CASE REPORT Normal [facility] Comment on above: Order Comment: Speci men Type: BLOOD SPECIMEN [facility] Address: [address] [place] [address] Result Comment: Surg ical Pathology Report Case: [id number] Authorizing Provider: Yandel Daniel MD Collected: 06/18/2023 01:50 PM Ordering Location: Admitting Received: 06/18/2023 02:57 PM Pathologist: Iliana Marti MD Specimens: A) - THYROID LOBE LEFT, Left substernal goiter B) - THYROID LOBE RIGHT, Right substernal goiter Performed By: #### 2 731-8 #### [facility] CLIA [id number] [address] [place] [address] [place] CLINICAL HISTORY Normal [facility] Comment on above: Order Comment: Specruy espino Type: BLOOD SPECIMEN [facility] Address: [address] [place] [address] Result Comment: 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 Normal [facility] Comment on above: Order Comment: Speci men Type: BLOOD SPECIMEN [facility] Address: [address] [place] [address] Performed By: #### 2 731-8 #### [facility] CLIA [id number] [facility] [address] [place] FINAL DIAGNOSIS Normal [facility] Comment on above: Order Comment: Speci men Type: BLOOD SPECIMEN [facility] Address: [address] [place], [place] [address] Result Comment: A,B. 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 - No parathyroid glands or lymph nodes were identified. - Negative for malignancy. Performed By: #### 2 731-8 #### [facility] CLIA [id number] [address] [place] [address] OF [facility] FINAL PERFORMING LAB Normal [facility] Comment on above: Order Comment: Speci men Type: BLOOD SPECIMEN [facility] Address: [address] [place] [address] Result Comment: Diag nostic interpretation performed at [facility], [address] [place] [address] CLIA# [id number] [employer] Rental Manager: Adonis Dukes M.D. Performed By: #### 2 731-8 #### [facility] CLIA [id number] [address] [place] [address] GROSS DESCRIPTION Normal [facility] Comment on above: Order Comment: Speci men Type: BLOOD SPECIMEN [facility] Address: [address] [place] [address] Result Comment: A. T HYROID LOBE LEFT Labeled: Thyroid lobe left Specimen received: Formalin Specimen type: Total thyroidectomy without attached skeletal muscle, lymph nodes, AND / OR large vessels Oriented: No Weight: 154.35 g Size: 11.5 x 8.2 x 4.1 cm Left lobe: 8.2 7.2 x 4.1 cm Isthmus: 5.5 x 2.5 x 1.9 cm Ink code: Blue- External surface [place] - Isthmus Sectioning: The specimen is serially sectioned from superior to inferior. Number of discrete nodules: 0 Background thyroid parenchyma: Multicystic, fleshy containing hemorrhagic fluid with areas of calcification. Attached skeletal muscle: Not identified Attached lymph nodes: Not identified Attached parathyroid: Not identified Gross photograph: Yes Cassette Code: A1-A2: Substation Inspector sections from left thyroid lobe A3: Substation Inspector section of the isthmus Gross examination performed at [facility], [address] [place] [address] CLIA # [id number] 06/19/23 1:55 PM B. THYROID LOBE RIGHT Labeled: Thyroid lobe Right Specimen received: Formalin Specimen type: Total thyroidectomy without attached skeletal muscle, lymph nodes, AND / OR large vessels Oriented: No Weight: 75.2 g Size: Right lobe: 9.5 x 4.5 x 3.1 cm Ink code: Black- External surface [place] - Isthmus resection margin Sectioning: The specimen is serially sectioned from superior to inferior. Number of discrete nodules: 0 Background thyroid parenchyma: Multicystic, fleshy containing hemorrhagic fluid. Attached skeletal muscle: Not identified Attached lymph nodes: Not identified Attached parathyroid: Not identified Gross photograph: Yes Cassette Code: B1-B2: Substation Inspector sections of the right thyroid lobe Gross examination performed at [facility], [address] [place] [address] CLIA # [id number] 06/19/23 1:55 PM Performed By: #### 2 731-8 #### [facility] CLIA [id number] [address] [place], [place] [address] [address] [place] Basic metabolic 2000 panelon 05-30-2023 Anion gap [Moles/Vol] 10 mmol/L Normal 9-18 [facility] Comment on above: Order Comment: Speci men Type: BLOOD SPECIMEN [facility] Address: [address] [place] [address] Performed By: #### 2 4321-2 #### [facility] CLIA [id number] [address] [place] [address] [place] Calcium [Mass/Vol] 8.9 mg/dL Normal 8.5-10.2 [facility] Comment on above: Order Comment: Speci men Type: BLOOD SPECIMEN [facility] Address: [address] [place] [address] Performed By: #### 2 4321-2 #### [facility] CLIA [id number] [address] [place] [address] [place] Chloride [Moles/Vol] 105 mmol/L Normal 97-105 [facility] Comment on above: Order Comment: Speci men Type: BLOOD SPECIMEN [facility] Address: [address] [place] [address] Performed By: #### 2 4321-2 #### [facility] CLIA [id number] [address] [place] [address] [place] CO2 [Moles/Vol] 21 mmol/L Low 22-30 [facility] Comment on above: Order Comment: Speci men Type: BLOOD SPECIMEN [facility] Address: [address] [place] [address] Performed By: #### 2 4321-2 #### [facility] CLIA [id number] [address] [place] [address] [place] Creatinine [Mass/Vol] 1.03 mg/dL High 0.58-0.96 [facility] Comment on above: Order Comment: Speci men Type: BLOOD SPECIMEN [facility] Address: [address] [place] [address] Performed By: #### 2 4321-2 #### [facility] CLIA [id number] [address] STATES OF [facility] Creatinine and Glomerular filtration rate.predicted panel (S/P/Bld) 60 mL/min/1.73m??? Normal >=60 [facility] Comment on above: Order Comment: Speci men Type: BLOOD SPECIMEN [facility] Address: [address] [place] [address] Result Comment: Leanna mated Glomerular Filtration Rate [...] GFR. Performed By: #### 2 4321-2 #### [facility] CLIA [id number] [address] [place] [address] [place] Glucose [Mass/Vol] 96 mg/dL Normal 74-99 [facility] Comment on above: Order Comment: Speci men Type: BLOOD SPECIMEN [facility] Address: [address] [place] [address] Result Comment: The British Diabetes Association (ADA) provides guidance for cutoff [...] Standards of Medical Care in Diabetes 2016, British Diabetes Association. Diabetes Care. 2016.39(Suppl 1). Performed By: #### 2 4321-2 #### [facility] CLIA [id number] [address] [place] [address] [place] Potassium [Moles/Vol] 4.6 mmol/L Normal 3.7-5.1 [facility] Comment on above: Order Comment: Christianoi men Type: BLOOD SPECIMEN [facility] Address: [address] [place] [address] Performed By: #### 2 4321-2 #### [facility] CLIA [id number] [address] [place] [address] [place] Sodium [Moles/Vol] 136 mmol/L Normal 136-144 [facility] Comment on above: Order Comment: Speci men Type: BLOOD SPECIMEN [facility] Address: [address] [place] [address] Performed By: #### 2 4321-2 #### [facility] CLIA [id number] [address] [place] [address] [place] Urea nitrogen [Mass/Vol] 28 mg/dL High 7-21 [facility] Comment on above: Order Comment: Speci men Type: BLOOD SPECIMEN [facility] Address: [address] [place] [address] Performed By: #### 2 4321-2 #### [facility] [place] [id number] [place] CBC panel Auto (Bld)on 05-30 Erythrocyte distribution width (RBC) [Ratio] 13.0 % Normal 11.5-15.0 [facility] Comment on above: Order Comment: Speci men Type: BLOOD SPECIMEN [facility] Address: [address] [place] [address] Performed By: #### 5 8410-2 #### [facility] IA [id number] [address] [place] Hematocrit (Bld) [Volume fraction] 38.6 % Normal 36.0-46.0 [facility] Comment on above: Order Comment: Speci men Type: BLOOD SPECIMEN [facility] Address: [address] [place] [address] Performed By: #### 5 8410-2 #### [facility] [place] [id number] [address] [place] Hemoglobin (Bld) [Mass/Vol] 12.2 g/dL Normal 11.5-15.5 [facility] Comment on above: Order Comment: Speci men Type: BLOOD SPECIMEN [facility]: [facility] Address: [address] [place] [address] Performed By: #### 5 8410-2 #### [facility] [place] [id number] [address] [place] [id number] [place] MCH (RBC) [Entitic mass] 31.3 pg Normal 26.0-34.0 [facility] Comment on above: Order Comment: Speci men Type: BLOOD SPECIMEN [facility] Address: [address] [place] [address] Performed By: #### 5 8410-2 #### [facility] IA [id number] [address] [place] [address] [place] MCHC (RBC) [Mass/Vol] 31.6 g/dL Normal 30.5-36.0 [facility] Comment on above: Order Comment: Speci men Type: BLOOD SPECIMEN [facility] Address: [address] [place] [address] Performed By: #### 5 8410-2 #### [facility] IA [id number] [address] [place] [address] [place] MCV (RBC) [Entitic vol] 99.0 fL Normal 80.0-100.0 [facility] Comment on above: Order Comment: Speci men Type: BLOOD SPECIMEN [facility] Address: [address] [place] [address] Performed By: #### 5 8410-2 #### [facility] IA [id number] [address] [place] [address] [place] Nucleated RBC (Bld) [#/Vol] 10*3/uL Normal <0.01 [facility] Comment on above: Order Comment: Speci men Type: BLOOD SPECIMEN [facility]: [facility] Address: [address] [place] [address] Performed By: #### 5 8410-2 #### [facility] IA [id number] [address] [place] [address] [place] Platelet mean volume (Bld) [Entitic vol] 9.9 fL Normal 9.0-12.7 [facility] Comment on above: Order Comment: Speci men Type: BLOOD SPECIMEN [facility]: [facility] Address: [address] [place] [address] Performed By: #### 5 8410-2 #### [facility] IA [id number] [address] [place] [address] [place] Platelets (Bld) [#/Vol] 254 10*3/uL Normal 150-400 [facility] Comment on above: Order Comment: Speci men Type: BLOOD SPECIMEN [facility]: [facility] Address: [address] [place] [address] Performed By: #### 5 8410-2 #### [facility] CLIA [id number] [address] [facility] [place] [address] [place] RBC (Bld) [#/Vol] 3.90 10*6/uL Normal 3.90-5.20 [facility] Comment on above: Order Comment: Specruy espino Type: BLOOD SPECIMEN [facility] Address: [address] [place] [id number] Performed By: #### 5 8410-2 #### [facility] CLIA [id number] [address] [facility] [place] [address] [facility] [place] WBC (Bld) [#/Vol] 5.78 10*3/uL Normal 3.70-11.00 [facility] Comment on above: Order Comment: Specruy espino Type: BLOOD SPECIMEN [facility] Address: [address] [place] [id number] Performed By: #### 5 8410-2 #### [facility] CLIA [id number] [address] [facility]. [place] [id number] [facility] CNOVon 05-30-2023 CNOV Office Visit (OTOLMN ) -------- GAIL ALMEIDA ([id number]) 1955 F Date Time Provider Department 05/30/23 [...] Yandel Daniel MD 05/30/2023 2:42 PM Signed [facility] Note CC: Preoperative appointment HPI: [...] by mouth every 12 hours as needed. lsprsh-beuvqagw-xmwbopz (ENZADYNE) 9,000-112,500- 112,500 unit capsule Take 1 [...] mass ASSES (more content not included)... Normal [facility] CT NECK SOFT TISSUE W IVCONo n 05-30-2023 CT NECK SOFT TISSUE W IVCON * * *Final Report* * * DATE OF EXAM: May 30 2023 10:30AM [facility] 0013 - CT NECK SOFT TISSUE [...] is no lymphadenopathy or soft tissue mass Web Site Admin (topogram) images: No additional findings. IMPRESSION: LARGE GOITER DETAILED Anatomy Teacher: MAVERICK Transcribe Date/Time: May 30 2023 11:42A Dictated by : JOBY VILLAFUERTE MD This examination was interpreted and the report reviewed and electronically signed by: JOBY VILLAFUERTE MD on May 30 2023 11:47AM EST [id number] Normal [facility] HISTORY PHYSICALon HISTORY PHYSICAL HNO ID: [id number] Author: Kristen Avalos PA-C Service: ? Author Type: Physician Fiberglass Product Tester Type: HANDP Filed: 06/04/2023 1:48 PM Note [...] block. States she follows with cardiology in [place], [place], but patient poor historian so unable [...] Yes topiramate (more content not included)... Normal [facility] HbA1c (Bld)on 05-30-2023 Average glucose Estimated from glycated hemoglobin (Bld) [Mass/Vol] 100 mg/dL Normal [facility] Comment on above: Order Comment: Pio espino Type: BLOOD SPECIMEN [facility] Address: [address] [place] [address] Result Comment: eAG: (Estimated average glucose) is a calculated value from HgbA1c and is claim representative of the average blood glucose level in the last 2-3 month period. Performed By: #### 5 5454-3 #### [facility] CLIA [id number] [address] [place] [address] [place] HbA1c (Bld) [Mass fraction] 5.1 % Normal 4.3-5.6 [facility] Comment on above: Order Comment: Pio espino Type: BLOOD SPECIMEN Ordering Facility: [facility] Address: [address] [place] [address] Result Comment: [place] Diabetes Association guidelines indicate that patients with HgbA1c in the range 5.7-6.4% are at increased risk for development of diabetes, and intervention by lifestyle modification may be beneficial. HgbA1c greater or equal to 6.5% is considered diagnostic of diabetes. Performed By: #### 5 5454-3 #### [facility] CLIA [id number] [facility] [address] STATES [place] NURSING PROGon 05-30-2023 NURSING PROG HNO ID: [id number] Author: Rody Sher RN Service: Nursing Author [...] DATE: May 30, 2023 TIME: 10:13 AM [facility] 04-11-2023 [facility] Office Visit (OESGMN ) -------- GAIL ALMEIDA ([id number]) 1955 F Date Time Provider Department 04/11/23 [...] details please see patient questionnaire scanned into [employer]. History: No past medical history on file. [...] refer to the patient questionnaire scanned into [employer]. Physical Exam: Vitals - There were no [...] use for management of psychiatric disorders. Patient kingatonja (more content not included)... Normal [facility] Zaina 04-11-2023 [facility] Telephone ([facility]) -------- JUAN PABLOGAIL ([id number]) 1955 F Date Time Provider Department 04/11/23 YANDEL DANIEL During your visit today, we recorded the following information about you: Radha Brice RN 04/11/2023 10:20 AM Signed AMBULATORY PATIENT [...] mouth every 12 hours as needed. - llrmgm-eitpwhgj-sjhsgdb (ENZADYNE) 9,000-112,500- 112,500 unit capsule Take 1 capsule by mouth daily with food. - nystatin (MYCOSTATIN) cream Apply to affected area two times a day. - OLANZapine (ZYPREXA) 5 mg tablet Take 5 mg by mouth every 12 hours as needed. Problem List As Of Date: 04/11/2023 (None) Encounter Status:Closed by RADHA BRICE on 04/11/23 [facility] Basophils Auto (Bld) [#/Vol] Ordered By: Mariana Pryor on 03-27-2023 Basophils (Bld) [#/Vol] 0.0 10*3/uL 0.0-0.2 [facility] Basophils/100 WBC Auto (Bld) Ordered By: Mariana Pryor on 03-27-2023 Basophils/100 WBC (Bld) 0.6 % . F [facility] Calcium [Mass/volume] in Ser um or PlasmaOrdered By: Mariana Pryor on 03-27-2023 Calcium [Mass/Vol] 9.5 mg/dL 8.6-10.3 [facility] Carbon dioxide, total [Moles /volume] in Serum or PlasmaOrdered By: Mariana Pryor on 03-27-2023 CO2 [Moles/Vol] 19.3 mmol/L 21.0-31.0 [facility] Chloride [Moles/volume] in S kishan or PlasmaOrdered By: Mariana Pryor on 03-27-2023 Chloride [Moles/Vol] 115 mmol/L 98-107 [facility] Creatinine [Mass/volume] in Serum or PlasmaOrdered By: Mariana Pryor on 03-27-2023 Creatinine [Mass/Vol] 0.96 mg/dL 0.60-1.20 [facility] Eosinophils Auto (Bld) [#/Vo l]Ordered By: Mariana Pryor on 03-27-2023 Eosinophils (Bld) [#/Vol] 0.0 10*3/uL 0.0-0.45 [facility] Eosinophils/100 WBC Auto (Bl d)Ordered By: Mariana Pryor on 03-27-2023 Eosinophils/100 WBC (Bld) 0.4 % . [facility] Erythrocyte distribution wid th Auto (RBC) [Ratio]Ordered By: Mariana Guillaume on 03-27-2023 Erythrocyte distribution width (RBC) [Ratio] 13.2 % 11.9-15.3 [facility] Glucose [Mass/volume] in Ser um or PlasmaOrdered By: Mariana Pryor on 03-27-2023 Glucose [Mass/Vol] 110 mg/dL 70-100 [facility] Comment on above: ADA recommended refe rence rangeRandom Glucose Reference Range is dependent on time and content of last meal. Glucose of more than 200 mg/dL in a nonstressed, ambulatory subject supports the diagnosis of Diabetes Mellitus. Hematocrit Auto (Bld) [Volum e fraction]Ordered By: Mariana Pryor on 03-27-2023 Hematocrit (Bld) [Volume fraction] 34.1 % 34.0-46.4 [facility] Hemoglobin [Mass/volume] in BloodOrdered By: Mariana Pryor on 03-27-2023 Hemoglobin (Bld) [Mass/Vol] 11.5 g/dL 11.8-15.4 [facility] Leukocytes [#/volume] correc cornelia for nucleated erythrocytes in Blood by Automated counOrdered By: Mariana Pryor on 03-27-2023 WBC corrected for nucl RBC Auto (Bld) [#/Vol] 7.7 10*3/uL 3.8-11.6 [facility] Lymphocytes Auto (Bld) [#/Vo l]Ordered By: Mariana Pryor on 03-27-2023 Lymphocytes (Bld) [#/Vol] 1.2 10*3/uL 1.00-4.8 [facility] Lymphocytes/100 WBC Auto (Bl d)Ordered By: Mariana Pryor on 03-27-2023 Lymphocytes/100 WBC (Bld) 14.9 % . [facility] MCH Auto (RBC) [Entitic mass ]Ordered By: Mariana Pryor on 03-27-2023 MCH (RBC) [Entitic mass] 32.3 pg 24.7-34.3 [facility] MCHC Auto (RBC) [Mass/Vol]Or dered By: Mariana Pryor on 03-27-2023 MCHC (RBC) [Mass/Vol] 33.6 g/dL 32.0-35.0 [facility] MCV Auto (RBC) [Entitic vol] Ordered By: Mariana Pryor on 03-27-2023 MCV (RBC) [Entitic vol] 96.4 fL 80-100 [facility] Monocytes Auto (Bld) [#/Vol] Ordered By: Mariana Pryor on 03-27-2023 Monocytes (Bld) [#/Vol] 0.6 10*3/uL 0.0-0.8 [facility] Monocytes/100 WBC Auto (Bld) Ordered By: Mariana Pryor on 03-27-2023 Monocytes/100 WBC (Bld) 8.3 % . [facility] Neutrophils Auto (Bld) [#/Vo l]Ordered By: Mariana Pryor on 03-27-2023 Neutrophils (Bld) [#/Vol] 5.9 10*3/uL 1.8-7.7 [facility] Neutrophils/100 WBC Auto (Bl d)Ordered By: Mariana Pryor on 03-27-2023 Neutrophils/100 WBC (Bld) 75.8 % . [facility] No Panel InformationOrdered By: Mariana Pryor on 03-27-2023 Estimated GFR (CKD-EPI) > 60.0 mL/Min [facility] Creatinine Clearance (Chem 51.73 [facility] Nucleated erythrocytes [Pres ence] in Blood by Automated countOrdered By: Mariana Pryor on 03-27-2023 Nucleated RBC Auto Ql (Bld) 0.0 /100{WBC} 0-0.5 [facility] Platelet mean volume Auto (B ld) [Entitic vol]Ordered By: Mariana Pryor on 03-27-2023 Platelet mean volume (Bld) [Entitic vol] 8.5 fL 6.3-10.7 [facility] Platelets Auto (Bld) [#/Vol] Ordered By: Mariana Pryor on 03-27-2023 Platelets (Bld) [#/Vol] 201 10*3/uL 150-450 [facility] Potassium [Moles/volume] in Serum or PlasmaOrdered By: Mariana Pryor on 03-27-2023 Potassium [Moles/Vol] 4.0 mmol/L 3.5-5.1 [facility] RBC Auto (Bld) [#/Vol]Ordere d By: Mariana Pryor on 03-27-2023 RBC (Bld) [#/Vol] 3.54 10*6/uL 3.60-5.00 [facility] Serum or plasma anion gap de terminationOrdered By: Mariana Pryor on 03-27-2023 Anion gap [Moles/Vol] 11.7 mmol/L 6.0-15.0 [facility] Sodium [Moles/volume] in Ser um or PlasmaOrdered By: Mariana Pryor on 03-27-2023 Sodium [Moles/Vol] 142 mmol/L 136-145 [facility] Urea nitrogen [Mass/volume] in Serum or PlasmaOrdered By: Mariana Pryor on 03-27-2023 Urea nitrogen [Mass/Vol] 20 mg/dL 25 [facility] WBC Auto (Bld) [#/Vol]Ordere d By: Mariana Pryor on 03-27-2023 WBC (Bld) [#/Vol] 7.7 10*3/uL 3.8-11.6 [facility] Alanine aminotransferase [En zymatic activity/volume] in Serum or PlasmaOrdered By: Mariana Pryor on 03-26-2023 ALT [Catalytic activity/Vol] 18 U/L 7-52 [facility] Albumin [Mass/volume] in Ser um or Plasma by Bromocresol green (BCG) dye binding methoOrdered By: Mariana Pryor on 03-26-2023 Albumin BCG dye [Mass/Vol] 4.1 g/dL 3.5-5.7 [facility] Alkaline phosphatase [Enzyma tic activity/volume] in Serum or PlasmaOrdered By: Mariana Pryor on 03-26-2023 ALP [Catalytic activity/Vol] 92 U/L 34-104 [facility] Aspartate aminotransferase [ Enzymatic activity/volume] in Serum or PlasmaOrdered By: Mariana Pryor on 03-26-2023 AST [Catalytic activity/Vol] 15 U/L 13-39 [facility] Automated erythrocytes count in urine sediment (number/area)Ordered By: Mariana Pryor on 03-26-2023 RBC Auto (Urine sed) [#/Area] None seen [HPF] 0-4 [facility] Automated leukocytes count i n urine sediment (number/area)Ordered By: Mariana Pryor on 03-26-2023 WBC Auto (Urine sed) [#/Area] 20-49 [HPF] 0-4 [facility] Bilirubin Auto test strip Ql (U)Ordered By: Mariana Pryor on 03-26-2023 Bilirubin Ql (U) Negative Negative [facility] Bilirubin.total [Mass/volume ] in Serum or PlasmaOrdered By: Mariana Pryor on 03-26-2023 Bilirubin [Mass/Vol] 0.4 mg/dL 0.3-1.0 [facility] Cholesterol [Mass/volume] in Serum or PlasmaOrdered By: Joe Davis on 03-26-2023 Cholesterol [Mass/Vol] 165 mg/dL 140-200 [facility] Comment on above: Chol less than 200 m g/dl low riskChol 201-239 mg/dl borderline riskChol 240 mg/dl and greater high risk Cholesterol in LDL Calc [Mas s/Vol]Ordered By: Joe Davis on 03-26-2023 Cholesterol in LDL [Mass/Vol] 95 mg/dL 0-100 [facility] Comment on above: LDL ATP III CLASSIFI CATIONLDL less than 100 mg/dL OptimalLDL 100-129 mg/dL Near or above optimalLDL 130-159 mg/dL Borderline highLDL 160-189 mg/dL HighLDL greater than 189 mg/dL Very high Cholesterol in VLDL Calc [Ma ss/Vol]Ordered By: Joe Davis on 03-26-2023 Cholesterol in VLDL [Mass/Vol] 17 mg/dL [facility] Globulin Calc (S) [Mass/Vol] Ordered By: Mariana Pryor on 03-26-2023 Globulin (S) [Mass/Vol] 2.4 g/dL [facility] Ketones Auto test strip (U) [Mass/Vol]Ordered By: Mariana Pryor on 03-26-2023 Ketones (U) [Mass/Vol] 1+ Negative [facility] Laboratory - UrinalysisOrder ed By: Mariana Pryor on 03-26-2023 Hyaline casts LM Ql (Urine sed) None seen [LPF] 0-8 [facility] Lipase [Enzymatic activity/v olume] in Serum or PlasmaOrdered By: Mariana Pryor on 03-26-2023 Lipase [Catalytic activity/Vol] 11.0 U/L 11.0-82.0 [facility] [place] [Moles/volume] in Se rum or PlasmaOrdered By: Joe Davis on 03-26-2023 [place] [Moles/Vol] 0.20 mmol/L 0.60-1.20 [facility] Protein Auto test strip (U) [Mass/Vol]Ordered By: Mariana Pryor on 03-26-2023 Protein (U) [Mass/Vol] Negative Negative [facility] Protein [Mass/volume] in Ser um or PlasmaOrdered By: Mariana Pryor on 03-26-2023 Protein [Mass/Vol] 6.5 g/dL 6.4-8.9 [facility] Serum or plasma albumin/glob ulin mass ratioOrdered By: Mariana Pryor on 03-26-2023 Albumin/Globulin [Mass ratio] 1.7 {ratio} [facility] Serum or plasma high density lipoprotein (HDL) cholesterol measurementOrdered By: Joe Davis on 03-26-2023 Cholesterol in HDL [Mass/Vol] 53 mg/dL 23-92 [facility] Comment on above: HDL CHOL ATP-III CLA SSIFICATION Cardiovascular RiskHDL > or equal to 60 mg/dL LOWHDL < 40 mg/dL HIGH Serum or plasma total choles terol/high density lipoprotein (HDL) cholesterol mass ratOrdered By: Joe Davis on 03-26-2023 Cholesterol.total/Judy sterol in HDL [Mass ratio] 3.1 {ratio} <5.0 [facility] Squamous epithelial cells de tection in urine sediment by light microscopyOrdered By: Mariana Pryor on 03-26-2023 Epithelial cells.squamous LM Ql (Urine sed) 0-1 [HPF] 0-2 [facility] Thyrotropin [Units/volume] i n Serum or PlasmaOrdered By: Joe Davis on 03-26-2023 TSH Qn 0.42 m[IU]/L 0.45-5.33 [facility] Thyroxine (T4) free [Mass/vo lume] in Serum or PlasmaOrdered By: Joe Davis on 03-26-2023 Free T4 [Mass/Vol] 0.74 ng/dL 0.61-1.12 [facility] Triglyceride [Mass/volume] i n Serum or PlasmaOrdered By: Joe Davis on 03-26-2023 Triglyceride [Mass/Vol] 86 mg/dL 0-149 [facility] Comment on above: TRIG ATP III CLASSIF ICATIONTRIG less than 150 mg/dL NormalTRIG 150-199 mg/dL Borderline highTRIG 200-500 mg/dL High TRIG greater than 500 mg/dL Very highStandard traceable to the Center for Disease Conrtrol and Prevention (CDC) test method. Urine appearanceOrdered By: Mariana Pryor on 03-26-2023 Appearance (U) Clear Clear [facility] Urine bacteria detection by automated methodOrdered By: Mariana Pryor on 03-26-2023 Bacteria Auto Ql (U) None seen None Seen [facility] Urine colorOrdered By: Mariana Pryor on 03-26-2023 Color (U) Yellow Yellow [facility] Urine glucose measurement by automated test strip (mass/volume)Ordered By: Mariana Pryor on 03-26-2023 Glucose Auto test strip (U) [Mass/Vol] Normal mg/dL Normal [facility] Urine hemoglobin detection b y automated test stripOrdered By: Mariana Guillaume on 03-26-2023 Hemoglobin Auto test strip Ql (U) Trace Negative [facility] Urine leukocyte esterase det ection by automated test stripOrdered By: Mariana Pryor on 03-26-2023 Leukocyte esterase Auto test strip Ql (U) 3+ Negative [facility] Urine nitrite detection by a utomated test stripOrdered By: Mariana Pryor on 03-26-2023 Nitrite Auto test strip Ql (U) Negative Negative [facility] Urobilinogen Auto test strip (U) [Mass/Vol]Ordered By: Mariana Pryor on 03-26-2023 Urobilinogen (U) [Mass/Vol] Normal mg/dL Normal [facility] Vitamin D+Metabolites [Mass/ volume] in Serum or PlasmaOrdered By: Joe Davis on 03-26-2023 Vitamin D+Metabolites [Mass/Vol] 34.5 ng/mL 30-100 [facility] Comment on above: VITAMIN D STATUS 25( [place])VITAMIN D RANGE (ng/mL) Deficient <20 Insufficient 20 to <30Sufficient 30 to 100Reference: Lucio MF,Renée DRAKE, Francisco CARPIO, et al. Evaluation,treatment, and prevention of vitamin D deficiency; an Endocrine Society clinical practice guideline. JCEM. 2010; 96(7):1911-30. pH Auto test strip (U)Ordere d By: Mariana Pryor on 03-26-2023 pH (U) 1.010 [pH] 1.001-1.03 0 [facility] pH (U) 6.0 [pH] 5.0-9.0 [facility] Alanine aminotransferase [En zymatic activity/volume] in Serum or PlasmaOrdered By: Mariana Kee on 03-14-2023 ALT [Catalytic activity/Vol] 28 U/L 7-52 [facility] Albumin [Mass/volume] in Ser um or Plasma by Bromocresol green (BCG) dye binding methoOrdered By: Mariana Kee on 03-14-2023 Albumin BCG dye [Mass/Vol] 3.9 g/dL 3.5-5.7 [facility] Alkaline phosphatase [Enzyma tic activity/volume] in Serum or PlasmaOrdered By: Mariana Kee on 03-14-2023 ALP [Catalytic activity/Vol] 86 U/L 34-104 [facility] Aspartate aminotransferase [ Enzymatic activity/volume] in Serum or PlasmaOrdered By: Mariana Kee on 03-14-2023 AST [Catalytic activity/Vol] 18 U/L 13-39 [facility] Basophils Auto (Bld) [#/Vol] Ordered By: Mariana Kee on 03-14-2023 Basophils (Bld) [#/Vol] 0.1 10*3/uL 0.0-0.2 [facility] Basophils/100 WBC Auto (Bld) Ordered By: Mariana Kee on 03-14-2023 Basophils/100 WBC (Bld) 1.0 % . [facility] Bilirubin.total [Mass/volume ] in Serum or PlasmaOrdered By: Mariana Kee on 03-14-2023 Bilirubin [Mass/Vol] 0.3 mg/dL 0.3-1.0 [facility] Calcium [Mass/volume] in Ser um or PlasmaOrdered By: Mariana Kee on 03-14-2023 Calcium [Mass/Vol] 9.3 mg/dL 8.6-10.3 [facility] Carbon dioxide, total [Moles /volume] in Serum or PlasmaOrdered By: Mariana Kee on 03-14-2023 CO2 [Moles/Vol] 20.1 mmol/L 21.0-31.0 [facility] Chloride [Moles/volume] in S kishan or PlasmaOrdered By: Mariana eKe on 03-14-2023 Chloride [Moles/Vol] 116 mmol/L 98-107 [facility] Creatinine [Mass/volume] in Serum or PlasmaOrdered By: Mariana Kee on 03-14-2023 Creatinine [Mass/Vol] 1.01 mg/dL 0.60-1.20 [facility] Eosinophils Auto (Bld) [#/Vo l]Ordered By: Mariana Kee on 03-14-2023 Eosinophils (Bld) [#/Vol] 0.2 10*3/uL 0.0-0.45 [facility] Eosinophils/100 WBC Auto (Bl d)Ordered By: Mariana Kee on 03-14-2023 Eosinophils/100 WBC (Bld) 4.6 % . [facility] Erythrocyte distribution wid th Auto (RBC) [Ratio]Ordered By: Mariana Kee on 03-14-2023 Erythrocyte distribution width (RBC) [Ratio] 13.3 % 11.9-15.3 [facility] Globulin Calc (S) [Mass/Vol] Ordered By: Mariana Kee on 03-14-2023 Globulin (S) [Mass/Vol] 2.0 g/dL [facility] Glucose [Mass/volume] in Ser um or PlasmaOrdered By: Mariana Kee on 03-14-2023 Glucose [Mass/Vol] 101 mg/dL 70-100 [facility] Comment on above: ADA recommended refe rence rangeRandom Glucose Reference Range is dependent on time and content of last meal. Glucose of more than 200 mg/dL in a nonstressed, ambulatory subject supports the diagnosis of Diabetes Mellitus. Hematocrit Auto (Bld) [Volum e fraction]Ordered By: Mariana Kee on 03-14-2023 Hematocrit (Bld) [Volume fraction] 37.4 % 34.0-46.4 [facility] Hemoglobin [Mass/volume] in BloodOrdered By: Mariana Kee on 03-14-2023 Hemoglobin (Bld) [Mass/Vol] 12.5 g/dL 11.8-15.4 [facility] Leukocytes [#/volume] correc cornelia for nucleated erythrocytes in Blood by Automated counOrdered By: Mariana Kee on 03-14-2023 WBC corrected for nucl RBC Auto (Bld) [#/Vol] 5.2 10*3/uL 3.8-11.6 [facility] Lipase [Enzymatic activity/v olume] in Serum or PlasmaOrdered By: Mariana Kee on 03-14-2023 Lipase [Catalytic activity/Vol] 21.0 U/L 11.0-82.0 [facility] Lymphocytes Auto (Bld) [#/Vo l]Ordered By: Mariana Kee on 03-14-2023 Lymphocytes (Bld) [#/Vol] 1.9 10*3/uL 1.00-4.8 [facility] Lymphocytes/100 WBC Auto (Bl d)Ordered By: Mariana Kee on 03-14-2023 Lymphocytes/100 WBC (Bld) 37.2 % . [facility] MCH Auto (RBC) [Entitic mass ]Ordered By: Mariana Kee on 03-14-2023 MCH (RBC) [Entitic mass] 31.9 pg 24.7-34.3 [facility] MCHC Auto (RBC) [Mass/Vol]Or dered By: Mariana Kee on 03-14-2023 MCHC (RBC) [Mass/Vol] 33.5 g/dL 32.0-35.0 [facility] MCV Auto (RBC) [Entitic vol] Ordered By: Mariana Kee on 03-14-2023 MCV (RBC) [Entitic vol] 95.2 fL 80-100 [facility] Monocytes Auto (Bld) [#/Vol] Ordered By: Mariana Kee on 03-14-2023 Monocytes (Bld) [#/Vol] 0.6 10*3/uL 0.0-0.8 [facility] Monocytes/100 WBC Auto (Bld) Ordered By: Mariana Kee on 03-14-2023 Monocytes/100 WBC (Bld) 11.5 % . [facility] Neutrophils Auto (Bld) [#/Vo l]Ordered By: Mariana Kee on 03-14-2023 Neutrophils (Bld) [#/Vol] 2.4 10*3/uL 1.8-7.7 [facility] Neutrophils/100 WBC Auto (Bl d)Ordered By: Mariana Kee on 03-14-2023 Neutrophils/100 WBC (Bld) 45.7 % . [facility] No Panel InformationOrdered By: Mariana Kee on 03-14-2023 Estimated GFR (CKD-EPI) > 60.0 mL/Min [facility] Creatinine Clearance (Chem 49.17 [facility] Nucleated erythrocytes [Pres ence] in Blood by Automated countOrdered By: Mariana Kee on 03-14-2023 Nucleated RBC Auto Ql (Bld) 0.1 /100{WBC} 0-0.5 [facility] Platelet mean volume Auto (B ld) [Entitic vol]Ordered By: Mariana Kee on 03-14-2023 Platelet mean volume (Bld) [Entitic vol] 8.7 fL 6.3-10.7 [facility] Platelets Auto (Bld) [#/Vol] Ordered By: Mariana Kee on 03-14-2023 Platelets (Bld) [#/Vol] 212 10*3/uL 150-450 [facility] Potassium [Moles/volume] in Serum or PlasmaOrdered By: Mariana Kee on 03-14-2023 Potassium [Moles/Vol] 4.2 mmol/L 3.5-5.1 [facility] Protein [Mass/volume] in Ser um or PlasmaOrdered By: Mariana Kee on 03-14-2023 Protein [Mass/Vol] 5.9 g/dL 6.4-8.9 [facility] RBC Auto (Bld) [#/Vol]Ordere d By: Mariana Kee on 03-14-2023 RBC (Bld) [#/Vol] 3.93 10*6/uL 3.60-5.00 [facility] Serum or plasma albumin/glob ulin mass ratioOrdered By: Mariana Kee on 03-14-2023 Albumin/Globulin [Mass ratio] 2.0 {ratio} [facility] Serum or plasma anion gap de terminationOrdered By: Mariana Kee on 03-14-2023 Anion gap [Moles/Vol] 9.1 mmol/L 6.0-15.0 [facility] Sodium [Moles/volume] in Ser um or PlasmaOrdered By: Mariana Kee on 03-14-2023 Sodium [Moles/Vol] 141 mmol/L 136-145 [facility] Urea nitrogen [Mass/volume] in Serum or PlasmaOrdered By: Mariana Kee on 03-14-2023 Urea nitrogen [Mass/Vol] 30 mg/dL 7-25 [facility] WBC Auto (Bld) [#/Vol]Ordere d By: Mariana Kee on 03-14-2023 WBC (Bld) [#/Vol] 5.2 10*3/uL 3.8-11.6 [facility] Automated erythrocytes count in urine sediment (number/area)Ordered By: Joe Davis on 03-12-2023 RBC Auto (Urine sed) [#/Area] 0-1 [HPF] 0-4 [facility] Automated leukocytes count i n urine sediment (number/area)Ordered By: Joe Davis on 03-12-2023 WBC Auto (Urine sed) [#/Area] 20-49 [HPF] 0-4 [facility] Bilirubin Test strip Ql (U)O rdered By: Joe Davis on 03-12-2023 Bilirubin Ql (U) Negative Negative [facility] Cholesterol [Mass/volume] in Serum or PlasmaOrdered By: Joe Davis on 03-12-2023 Cholesterol [Mass/Vol] 162 mg/dL 140-200 [facility] Comment on above: Chol less than 200 m g/dl low riskChol 201-239 mg/dl borderline riskChol 240 mg/dl and greater high risk Cholesterol in LDL Calc [Mas s/Vol]Ordered By: Joe Davis on 03-12-2023 Cholesterol in LDL [Mass/Vol] 95 mg/dL 0-100 [facility] Comment on above: LDL ATP III CLASSIFI CATIONLDL less than 100 mg/dL OptimalLDL 100-129 mg/dL Near or above optimalLDL 130-159 mg/dL Borderline highLDL 160-189 mg/dL HighLDL greater than 189 mg/dL Very high Cholesterol in VLDL Calc [Ma ss/Vol]Ordered By: Joe Davis on 03-12-2023 Cholesterol in VLDL [Mass/Vol] 15 mg/dL [facility] Color Auto (U)Ordered By: Ab sofia Davis on 03-12-2023 Color (U) Yellow Yellow [facility] Ketones Auto test strip (U) [Mass/Vol]Ordered By: Joe Davis on 03-12-2023 Ketones (U) [Mass/Vol] Negative Negative [facility] Laboratory - UrinalysisOrder ed By: Joe Davis on 03-12-2023 Hyaline casts LM Ql (Urine sed) 0-8 [LPF] 0-8 [facility] Nitrite Test strip Ql (U)Ord ered By: oJe Davis on 03-12-2023 Nitrite Ql (U) Negative Negative [facility] Protein Auto test strip (U) [Mass/Vol]Ordered By: Joe Davis on 03-12-2023 Protein (U) [Mass/Vol] Negative Negative [facility] Serum or plasma high density lipoprotein (HDL) cholesterol measurementOrdered By: Joe Davis on 03-12-2023 Cholesterol in HDL [Mass/Vol] 52 mg/dL 23-92 [facility] Comment on above: HDL CHOL ATP-III CLA SSIFICATION Cardiovascular RiskHDL > or equal to 60 mg/dL LOWHDL < 40 mg/dL HIGH Serum or plasma total choles terol/high density lipoprotein (HDL) cholesterol mass ratOrdered By: Joe Davis on 03-12-2023 Cholesterol.total/Judy sterol in HDL [Mass ratio] 3.1 {ratio} <5.0 [facility] Specific gravity Auto test s trip (U) [Rel density]Ordered By: Joe Davis on 03-12-2023 Specific gravity (U) [Rel density] 1.006 1.001-1.03 0 [facility] Squamous epithelial cells de tection in urine sediment by light microscopyOrdered By: Joe Davis on 03-12-2023 Epithelial cells.squamous LM Ql (Urine sed) 0-1 [HPF] 0-2 [facility] Thyrotropin [Units/volume] i n Serum or PlasmaOrdered By: Joe Davis on 03-12-2023 TSH Qn 0.91 m[IU]/L 0.45-5.33 [facility] Triglyceride [Mass/volume] i n Serum or PlasmaOrdered By: Joe Davis on 03-12-2023 Triglyceride [Mass/Vol] 76 mg/dL 0-149 [facility] Comment on above: TRIG ATP III CLASSIF ICATIONTRIG less than 150 mg/dL NormalTRIG 150-199 mg/dL Borderline highTRIG 200-500 mg/dL High TRIG greater than 500 mg/dL Very highStandard traceable to the Center for Disease Conrtrol and Prevention (CDC) test method. Urine bacteria detection by automated methodOrdered By: oJe Davis on 03-12-2023 Bacteria Auto Ql (U) None seen None Seen [facility] Urine clarity by refractomet ry automatedOrdered By: Joe aDvis on 03-12-2023 Clarity Refractometry automated (U) Clear Clear [facility] Urine culture routineOrdered By: Joe Davis on 03-12-2023 Bacteria identified Cx Nom (U) bacilli - 2 Days [facility] Urine glucose measurement by automated test strip (mass/volume)Ordered By: Joe Davis on 03-12-2023 Glucose Auto test strip (U) [Mass/Vol] Normal mg/dL Normal [facility] Urine hemoglobin detection b y automated test stripOrdered By: Joe Davis on 03-12-2023 Hemoglobin Auto test strip Ql (U) Negative Negative [facility] Urine leukocyte esterase det ection by automated test stripOrdered By: Joe Davis on 03-12-2023 Leukocyte esterase Auto test strip Ql (U) 4+ Negative [facility] Urobilinogen Auto test strip (U) [Mass/Vol]Ordered By: Joe Davis on 03-12-2023 Urobilinogen (U) [Mass/Vol] Normal mg/dL Normal [facility] Vitamin D+Metabolites [Mass/ volume] in Serum or PlasmaOrdered By: Joe Davis on 03-12-2023 Vitamin D+Metabolites [Mass/Vol] 28.1 ng/mL 30-100 [facility] Comment on above: VITAMIN D STATUS 25( [place])VITAMIN D RANGE (ng/mL) Deficient <20 Insufficient 20 to <30Sufficient 30 to 100Reference: Lucio GUADALUPE,Renée DRAKE, Francisco CARPIO, et al. Evaluation,treatment, and prevention of vitamin D deficiency; an Endocrine Society clinical practice guideline. JCEM. 2010; 96(7):1911-30. pH Auto test strip (U)Ordere d By: Joe Davis on 03-12-2023 pH (U) 7.0 [pH] 5.0-9.0 [facility] [place] [Moles/volume] in Se rum or PlasmaOrdered By: EILAZAR STAFF on 03-11-2023 [place] [Moles/Vol] 0.50 mmol/L 0.60-1.20 [facility] XR shoulder RT min 2V*on XR shoulder RT min 2V* [facility] [employer] Other XR shoulder RT min 2V* [facility] [employer] Other XR shoulder RT min 2V* [address] [facility] D[employer] Other XR shoulder RT min 2V* [place] [address] [employer] Other XR shoulder RT min 2V* XRay Report N [facility] [employer] Other XR shoulder RT min 2V* Signed No rt [employer] Other XR shoulder RT min 2V* Patient: Mary Anne Almeida MR#: [id number] [employer] Other XR shoulder RT min 2V* 250 No rt D[employer] Other XR shoulder RT min 2V* : 1955 Acct:[id number] [employer] Other XR shoulder RT min 2V* Age/Sex: 67 / F A DM Date: 12/12/22 [employer] Other XR shoulder RT min 2V* Loc: [facility] Room: T ype: [facility] [employer] Other XR shoulder RT min 2V* Attending Dr: Neftali Adame DO [employer] Other XR shoulder RT min 2V* Copies to: Emory Adame DO [employer] Other XR shoulder RT min 2V* Ordering Provider : Emory Adame DO [employer] Other XR shoulder RT min 2V* Date of Service: 12/12/22 [employer] Other XR shoulder RT min 2V* XR/XR shoulder RT min 2V*: Other closed displaced fracture of proximal [employer] Other XR shoulder RT min 2V* end of right hum [employer] Other XR shoulder RT min 2V* XR shoulder RT mi n 2V* 12/12/2022 1:42 PM [employer] Other XR shoulder RT min 2V* SIGNS AND SYMPTOM S: Status post right proximal humerus fracture, hardware fixation, follow-up [employer] Other XR shoulder RT min 2V* PROTOCOL: Frontal , Grashey, and scapular Y views of the right shoulder. [employer] Other XR shoulder RT min 2V* COMPARISON: 10/31/2022 Fan [employer] Other XR shoulder RT min 2V* FINDINGS: No [employer] Other XR shoulder RT min 2V* There is hardware fixation of the right humeral head and proximal humeral shaft. There is no [employer] Other XR shoulder RT min 2V* hardware complica tion. There are bony fragments within the rotator interval which have migrated the [employer] Other XR shoulder RT min 2V* prior exam. The acromioclavicular joint and glenohumeral joint are preserved. The visualized right [employer] Other XR shoulder RT min 2V* hemithorax is la ssly intact. [employer] Other XR shoulder RT min 2V* 7 XR/XR shoulder RT min 2V* Fan [employer] Other XR shoulder RT min 2V* IMPRESSION: N [employer] Other XR shoulder RT min 2V* hardware complication. Fan [employer] Other XR shoulder RT min 2V* There are bony fr agments within the rotator interval which have migrated the prior exam. [employer] Other XR shoulder RT min 2V* Impression dictat ed by: Janis Jett M.D.12/12/2022 4:03 PM [employer] Other XR shoulder RT min 2V* Dictation Locatio n: RADIO-PC-12 [employer] Other XR shoulder RT min 2V* Transcribed By: Alpa DUVALL 12/12/22 1603 [employer] Other XR shoulder RT min 2V* Dictated By: Janis Jett II, MD 12/12/22 1600 Fan [employer] Other XR shoulder RT min 2V* Signed By: No rt DTT Other XR shoulder RT min 2V* 12/12/22 1603 [employer] Other XR shoulder RT min 2V*on XR shoulder RT min 2V* [facility] [employer] Other XR shoulder RT min 2V* [facility] DTT Other XR shoulder RT min 2V* [address] [place] [address] Fan TV Other XR shoulder RT min 2V* [place] [address] Fan TV Other XR shoulder RT min 2V* XRay Report N [facility] DTT Other XR shoulder RT min 2V* Signed No rt DTT Other XR shoulder RT min 2V* Patient: Mary Anne Almeida MR#: [id number] [place] DTT Other XR shoulder RT min 2V* 250 No [employer] Other XR shoulder RT min 2V* : 1955 Acct:[id number] Fan [employer] Other XR shoulder RT min 2V* Age/Sex: 67 / F A DM Date: 10/31/22 Fan [employer] Other XR shoulder RT min 2V* Loc: [facility] Room: T ype: REG CLI [employer] Other XR shoulder RT min 2V* Attending Dr: Neftali Adame DO [employer] Other XR shoulder RT min 2V* Copies to: Emory Adame DO [employer] Other XR shoulder RT min 2V* Ordering Provider : Emory Adame DO [employer] Other XR shoulder RT min 2V* Date of Service: 10/31/22 [employer] Other XR shoulder RT min 2V* XR/XR shoulder RT min 2V*: Other closed displaced fracture of proximal [employer] Other XR shoulder RT min 2V* end of right hum [employer] Other XR shoulder RT min 2V* RIGHT SHOULDER - - 3 views [employer] Other XR shoulder RT min 2V* CLINICAL HISTORY: ORIF right humerus [employer] Other XR shoulder RT min 2V* COMPARISON: Right shoulder 10/03/2022 Fan [employer] Other XR shoulder RT min 2V* FINDINGS: No [employer] Other XR shoulder RT min 2V* Hardware fixation is seen involving the right humeral neck without evidence of hardware [employer] Other XR shoulder RT min 2V* complication. Fragmentation versus callus formation is noted involving the greater tubercle [employer] Other XR shoulder RT min 2V* possibly represen alessandrog healing response. [employer] Other XR shoulder RT min 2V* 1 XR/XR shoulder RT min 2V* Fan [employer] Other XR shoulder RT min 2V* IMPRESSION: N [employer] Other XR shoulder RT min 2V* FRAGMENTATION PETER HARRY CALCIFIED FORMATION IS NOTED INVOLVING THE GREATER TUBERCLE POSSIBLY [employer] Other XR shoulder RT min 2V* REPRESENTING HEAL ING RESPONSE. FOLLOW-UP IS RECOMMENDED.. [employer] Other XR shoulder RT min 2V* Impression dictat ed by: Yandel Lees Jr., D.OLore10/31/2022 4:06 PM [employer] Other XR shoulder RT min 2V* Dictation Locatio n: RADIO-PC-08 Fan [employer] Other XR shoulder RT min 2V* Transcribed By: Alpa DUVALL 10/31/22 1606 [employer] Other XR shoulder RT min 2V* Dictated By: Isrrael Lees Jr, DO 10/31/22 1604 [employer] Other XR shoulder RT min 2V* Signed By: No rt DTT Other XR shoulder RT min 2V* 10/31/22 1606 Fan TV Other LITHIUMon 10-27-2022 [place] (Eskalith(R)), Serum 0.9 mmol/L Normal 0.5-1.2 [facility] Comment on above: Result Comment: A co ncentration of 0.5-0.8 mmol/L is advised for long-term use; concentrations of up to 1.2 mmol/L may be necessary during acute treatment. Detection Limit = 0.1 <0.1 indicates None Detected Performed By: #### L ITHIUM #### [facility] [address] [address] [address] Beny Johnson CREATININEon 10-26-2022 Creatinine [Mass/Vol] 1.43 mg/dL Critically high 0.55-1.02 [facility] Comment on above: Performed By: #### T SH, CREA #### [facility] [address] [address] [address] Beny Johnson EGFR-AF [place] 45 mL/min/1.73m2 Critically low >=60 [facility] Comment on above: Performed By: #### T SH, CREA #### [facility] [address] [address] [address] Beny Johnson EGFR-NON AF [place] 37 mL/min/1.73m2 Critically low >=60 [facility] Comment on above: Performed By: #### T JAGDISH, CREA #### [facility] [address] [address] [address] Beny Johnson TSHon 10-26-2022 TSH 1.213 uIU/mL Normal 0.358-3.74 0 [facility] Comment on above: Performed By: #### T JAGDISH, CREA #### [facility] [address] [address] [address] Beny Johnson Hematocrit Auto (Bld) [Volum e fraction]Ordered By: Emory Adame on 09-13-2022 Hematocrit (Bld) [Volume fraction] 36.3 % 34.0-46.4 [facility] Hemoglobin [Mass/volume] in BloodOrdered By: Emory Adame on 09-13-2022 Hemoglobin (Bld) [Mass/Vol] 11.6 g/dL 11.8-15.4 [facility] Basophils Auto (Bld) [#/Vol] Ordered By: Emory Adame on 09-11-2022 Basophils (Bld) [#/Vol] 0.1 10*3/uL 0.0-0.2 [facility] Basophils/100 WBC Auto (Bld) Ordered By: Emory Adame on 09-11-2022 Basophils/100 WBC (Bld) 0.9 % . [facility] Calcium [Mass/volume] in Ser um or PlasmaOrdered By: Emory Adame on 09-11-2022 Calcium [Mass/Vol] 10.4 mg/dL 8.6-10.3 [facility] Carbon dioxide, total [Moles /volume] in Serum or PlasmaOrdered By: Emory Adame on 09-11-2022 CO2 [Moles/Vol] 22.2 mmol/L 21.0-31.0 [facility] Chloride [Moles/volume] in S kishan or PlasmaOrdered By: Emory Adame on 09-11-2022 Chloride [Moles/Vol] 113 mmol/L 98-107 [facility] Creatinine [Mass/volume] in Serum or PlasmaOrdered By: Emory Adame on 09-11-2022 Creatinine [Mass/Vol] 1.06 mg/dL 0.60-1.20 [facility] Eosinophils Auto (Bld) [#/Vo l]Ordered By: Emory Adame on 09-11-2022 Eosinophils (Bld) [#/Vol] 0.1 10*3/uL 0.0-0.45 [facility] Eosinophils/100 WBC Auto (Bl d)Ordered By: Emory Adame on 09-11-2022 Eosinophils/100 WBC (Bld) 1.8 % . [facility] Erythrocyte distribution wid th Auto (RBC) [Ratio]Ordered By: Emory Adame on 09-11-2022 Erythrocyte distribution width (RBC) [Ratio] 13.8 % 11.9-15.3 [facility] Glucose [Mass/volume] in Ser um or PlasmaOrdered By: Emory Adame on 09-11-2022 Glucose [Mass/Vol] 113 mg/dL 70-100 [facility] Comment on above: ADA recommended refe rence rangeRandom Glucose Reference Range is dependent on time and content of last meal. Glucose of more than 200 mg/dL in a nonstressed, ambulatory subject supports the diagnosis of Diabetes Mellitus. Hematocrit Auto (Bld) [Volum e fraction]Ordered By: Emory Adame on 09-11-2022 Hematocrit (Bld) [Volume fraction] 36.8 % 34.0-46.4 [facility] Hemoglobin [Mass/volume] in BloodOrdered By: Emory Adame on 09-11-2022 Hemoglobin (Bld) [Mass/Vol] 12.2 g/dL 11.8-15.4 [facility] Leukocytes [#/volume] correc cornelia for nucleated erythrocytes in Blood by Automated counOrdered By: Emory Adame on 09-11-2022 WBC corrected for nucl RBC Auto (Bld) [#/Vol] 5.9 10*3/uL 3.8-11.6 [facility] Lymphocytes Auto (Bld) [#/Vo l]Ordered By: Emory Adame on 09-11-2022 Lymphocytes (Bld) [#/Vol] 1.1 10*3/uL 1.00-4.8 [facility] Lymphocytes/100 WBC Auto (Bl d)Ordered By: Emory Adame on 09-11-2022 Lymphocytes/100 WBC (Bld) 19.4 % . [facility] MCH Auto (RBC) [Entitic mass ]Ordered By: Emory Adame on 09-11-2022 MCH (RBC) [Entitic mass] 31.8 pg 24.7-34.3 [facility] MCHC Auto (RBC) [Mass/Vol]Or dered By: Emory Adame on 09-11-2022 MCHC (RBC) [Mass/Vol] 33.2 g/dL 32.0-35.0 Fir [facility] MCV Auto (RBC) [Entitic vol] Ordered By: Emory Adame on 09-11-2022 MCV (RBC) [Entitic vol] 95.7 fL 80-100 [facility] Monocytes Auto (Bld) [#/Vol] Ordered By: Emory Adame on 09-11-2022 Monocytes (Bld) [#/Vol] 0.5 10*3/uL 0.0-0.8 [facility] Monocytes/100 WBC Auto (Bld) Ordered By: Emory Adame on 09-11-2022 Monocytes/100 WBC (Bld) 8.0 % . [facility] Neutrophils Auto (Bld) [#/Vo l]Ordered By: Emory Adame on 09-11-2022 Neutrophils (Bld) [#/Vol] 4.1 10*3/uL 1.8-7.7 [facility] Neutrophils/100 WBC Auto (Bl d)Ordered By: Emory Adame on 09-11-2022 Neutrophils/100 WBC (Bld) 69.9 % . [facility] No Panel InformationOrdered By: Emory Adame on 09-11-2022 Estimated GFR (CKD-EPI) 58.298 mL/Min [facility] Creatinine Clearance (Chem N/A [facility] Nucleated erythrocytes [Pres ence] in Blood by Automated countOrdered By: Emory Adame on 09-11-2022 Nucleated RBC Auto Ql (Bld) 0.1 /100{WBC} 0-0.5 [facility] Platelet mean volume Auto (B ld) [Entitic vol]Ordered By: Emory Aadme on 09-11-2022 Platelet mean volume (Bld) [Entitic vol] 8.1 fL 6.3-10.7 [facility] Platelets Auto (Bld) [#/Vol] Ordered By: Emory Adame on 09-11-2022 Platelets (Bld) [#/Vol] 303 10*3/uL 150-450 [facility] Potassium [Moles/volume] in Serum or PlasmaOrdered By: Emory Adame on 09-11-2022 Potassium [Moles/Vol] 4.8 mmol/L 3.5-5.1 [facility] RBC Auto (Bld) [#/Vol]Ordere d By: Emory Adame on 09-11-2022 RBC (Bld) [#/Vol] 3.85 10*6/uL 3.60-5.00 [facility] Serum or plasma anion gap de terminationOrdered By: Emory Adame on 09-11-2022 Anion gap [Moles/Vol] 11.6 mmol/L 6.0-15.0 [facility] Sodium [Moles/volume] in Ser um or PlasmaOrdered By: Emory Adame on 09-11-2022 Sodium [Moles/Vol] 142 mmol/L 136-145 [facility] Urea nitrogen [Mass/volume] in Serum or PlasmaOrdered By: Emory Adame on 09-11-2022 Urea nitrogen [Mass/Vol] 24 mg/dL 7-25 [facility] WBC Auto (Bld) [#/Vol]Ordere d By: Emory Adame on 09-11-2022 WBC (Bld) [#/Vol] 5.9 10*3/uL 3.8-11.6 [facility] XR shoulder RT min 2V*on XR shoulder RT min 2V* [facility] DTT Other XR shoulder RT min 2V* [facility] [employer] Other XR shoulder RT min 2V* [address] [facility] [employer] Other XR shoulder RT min 2V* [place] [address] Fan [employer] Other XR shoulder RT min 2V* XRay Report N [facility] DTT Other XR shoulder RT min 2V* Signed No rt DTT Other XR shoulder RT min 2V* Patient: Mary Anne Almeida MR#: [id number] [employer] D[employer] Other XR shoulder RT min 2V* 250 No rt DTT Other XR shoulder RT min 2V* : 1955 Acct:[id number] [employer] Other XR shoulder RT min 2V* Age/Sex: 66 / F A DM Date: 09/10/22 Fan [employer] Other XR shoulder RT min 2V* Loc: [facility] Room: T ype: [facility] Fan TV Other XR shoulder RT min 2V* Attending Dr: Neftali Adame DO [employer] Other XR shoulder RT min 2V* Copies to: Emory Adame DO [employer] Other XR shoulder RT min 2V* Ordering Provider : Emory Adame DO [employer] Other XR shoulder RT min 2V* Date of Service: 09/10/22 [employer] Other XR shoulder RT min 2V* XR/XR shoulder RT min 2V*: Acute pain of right shoulder [employer] Other XR shoulder RT min 2V* RIGHT SHOULDER - - 3 views [employer] Other XR shoulder RT min 2V* CLINICAL HISTORY: Proximal right humerus fracture continued pain. [employer] Other XR shoulder RT min 2V* COMPARISON: Right shoulder 09/06/2022 [employer] Other XR shoulder RT min 2V* FINDINGS: No rt DTT Other XR shoulder RT min 2V* Greater tuberosit y fracture is once again demonstrated grossly unchanged in alignment when compared [employer] Other XR shoulder RT min 2V* to the prior stud y. Sclerosis is seen involving the fracture site suggestive of healing response. AC [employer] Other XR shoulder RT min 2V* joint appears intact. [employer] Other XR shoulder RT min 2V* 3 XR/XR shoulder RT min 2V* [employer] Other XR shoulder RT min 2V* IMPRESSION: N [facility] DTT Other XR shoulder RT min 2V* SCLEROSIS IS SEEN AT THE GREATER TUBEROSITY FRACTURE SITE SUGGESTIVE OF HEALING RESPONSE. NO CHANGE [employer] Other XR shoulder RT min 2V* IN ALIGNMENT. [employer] Other XR shoulder RT min 2V* Impression dictat ed by: Yandel Lees Jr., D.O.09/10/2022 12:18 PM [employer] Other XR shoulder RT min 2V* Dictation Locatio n: RADIO-PC-12 [employer] Other XR shoulder RT min 2V* Transcribed By: Alpa DUVALL 09/10/22 1218 [employer] Other XR shoulder RT min 2V* Dictated By: Isrrael Lees Jr, DO 09/10/22 1215 [employer] Other XR shoulder RT min 2V* Signed By: No rt DTT Other XR shoulder RT min 2V* 09/10/22 1218 Fan [employer] Other XR SHOULDER RT 1 Von 09-06-2 [...] HÉCTOR HO Date: 2022-09-06 15:02 Normal [facility] XR SHOULDER RT 1 V EXAM: XR [...] HÉCTOR HO Date: 2022-09-06 15:01 Normal [facility] XR SHOULDER RT 1 V EXAM: XR [...] HÉCTOR HO Date: 2022-09-06 15:00 Normal [facility] XR SHOULDER RT 1 V EXAM: XR SHOULDER RT 1 V HISTORY: Pain ; postreduction imaging COMPARISON: Prior shoulder x-rays from same date TECHNIQUE: FINDINGS: Humeral head is positioned inferior to the glenoid. Stable displaced fracture from the greater tuberosity. IMPRESSION: 1. Persistent anterior inferior glenohumeral dislocation and greater tuberosity fracture. Electronically authenticated by: HÉCTOR HO Date: 2022-09-06 14:56 Normal [facility] XR SHOULDER RT 1 V EXAM: XR [...] HÉCTOR HO Date: 2022-09-06 14:55 Normal [facility] LITHIUMon 08-23-2022 [place] (Eskalith(R)), Serum 0.9 mmol/L Normal 0.5-1.2 [facility] Comment on above: Result Comment: A co ncentration of 0.5-0.8 mmol/L is advised for long-term use; concentrations of up to 1.2 mmol/L may be necessary during acute treatment. Detection Limit = 0.1 <0.1 indicates None Detected Performed By: #### L ITHIUM ####[facility] [id number] [place], [place] [address]Dr. Beny [facility] CREATININEon 08-22-2022 Creatinine [Mass/Vol] 1.17 mg/dL Critically high 0.55-1.02 [facility] Comment on above: Performed By: #### C ELA ####[facility] [id number] [address]Dr[address] [facility] EGFR-AF [place] 56 mL/min/1.73m2 Critically low >=60 [facility] Comment on above: Performed By: #### C ELA ####[facility] [id number] [address]Dr[address] [facility] EGFR-NON AF [place] 46 mL/min/1.73m2 Critically low >=60 [facility] Comment on above: Performed By: #### C ELA ####[facility] [id number] [address]Dr. Beny Johnson LITHIUMon 08-04-2022 [place] (Eskalith(R)), Serum 1.1 mmol/L Normal 0.5-1.2 [facility] Comment on above: Result Comment: A co ncentration of 0.5-0.8 mmol/L is advised for long-term use; concentrations of up to 1.2 mmol/L may be necessary during acute treatment. Detection Limit = 0.1 <0.1 indicates None Detected Performed By: #### L ITHIUM ####[facility] [id number] [address]Dr. Beny Johnson CREATININEon 08-03-2022 Creatinine [Mass/Vol] 1.36 mg/dL Critically high 0.55-1.02 [facility] Comment on above: Performed By: #### C ELA, TSH ####[facility] [id number] [address]Dr. Beny Johnson EGFR-AF [place] 47 mL/min/1.73m2 Critically low >=60 [facility] Comment on above: Performed By: #### Mikala MAHMOOD, TSH ####[facility] [id number] [address]Dr. Beny Johnson EGFR-NON AF [place] 39 mL/min/1.73m2 Critically low >=60 [facility] Comment on above: Performed By: #### Mikala MAHMOOD, TSH ####[facility] [id number] [address]Dr. Beny Johnson TSHon 08-03-2022 TSH 0.901 uIU/mL Normal 0.358-3.74 0 [facility] Comment on above: Performed By: #### Mikala MAHMOOD, TSH ####[facility] [id number] [address]Dr. Beny Johnson Outside Recordson 10-25-2021 Outside Records [id number]: 127 Normal [facility] Consent for Procedure/Surger yon 10-13-2021 Consent for Procedure/Surgery [id number] :127 Normal [facility] Creatinineon 08-01-2021 Creatinine [Mass/Vol] 0.98 mg/dL High 0.50 - 0.90 mg/dL [facility] GFR >60 >60 mL/min [facility] GFR Non- 57 mL/min Low >60 [facility] Interpretation and review of laboratory results Abnormal [facility] - Chemistry and C hemistry - challengeon 08-01-2021 GFR/1.73 sq M.predicted MDRD (S/P/Bld) [Vol rate/Area] Ramona Clark Comment on above: Average GFR for 60-6 9 years old: 85 mL/min/1.73sq m Chronic Kidney Disease: <60 mL/min/1.73sq m Kidney failure: <15 mL/min/1.73sq m eGFR calculated using average adult body mass. Additional eGFR calculator available at: http://www.[employer]/multiple_crcl_2012.htm Stage 1: Some kidney damage normal GFR [...] mammography is recommended. OVERALL ASSESSMENT - BENIGN [facility] EXAMINATION: MRI OF THE [...] signal along the mediastinum is likely benign. [facility] Radiology Study observation (narrative) Ramona vigil Work Phone: MRI BREAST BILATERAL W CONTR ASTOrdered By: Dee Soto on 08-01-2021 [employer] Phone: LINDA ERYN DIGITAL DIAGNOSTIC BILATERALOrdered By: She Spencer on 11-11-2020 1. No mammographic evidence of malignancy. BIRADS: BIRADS - CATEGORY 2 Benign Findings. Normal interval follow-up is recommended in 12 months. OVERALL ASSESSMENT - BENIGN A letter of notification will be sent to the patient regarding the results. The [employer] recommends annual mammograms for women 40 years and older. [employer] Phone: EXAMINATION: DIAGNOS TIC DIGITAL BILATERAL BREASTS [...] dated June 08, 2020 is not visible. [employer] Phone: [place], p[place] Incoming Radiant Results From [employer] - 11/11/2020 10:09 PM EDT EXAMINATION: DIAGNOSTIC [...] to the patient regarding the results. The [employer] recommends annual mammograms for women 40 years and older. [employer] Phone: [employer] Phone: Attalla Levelon 07-21-2020 [place] Date Last Dose NOT REPORTED [employer] Phone: [place] Dose Amount NOT REPORTED [facility] [employer] Phone: [place] Dose Time NOT REPORTED [facility] [place] Lvl 0.9 mmol/L 0.6 - 1.2 mmol/L [employer] Phone: Lipid Panelon 07-18-2020 Cholesterol [Mass/Vol] 151 mg/dL <200 [facility]: Comment on above: Cholesterol Guidelines: <200 Desirable 200-240 Borderline >240 Undesirable Cholesterol in HDL [Mass/Vol] 42 mg/dL >40 [employer] Phone: Comment on above: HDL Guidelines: <40 Undesirable 40-59 Borderline >59 Desirable Cholesterol in LDL [Mass/Vol] 79 mg/dL 0 - 130 mg/dL [employer] Phone: Comment on above: LDL Guidelines: <100 Desirable 100-129 Near to/above Desirable 130-159 Borderline >159 Undesirable Direct (measured) LDL and calculated LDL are not interchangeable tests. Cholesterol in VLDL [Mass/Vol] NOT REPORTED 1 - 30 mg/dL [employer] Phone: Cholesterol.total/Judy sterol in HDL [Mass ratio] 3.6 {ratio} <5 [facility]: Interpretation and review of laboratory results Abnormal [employer] Phone: Triglyceride [Mass/Vol] 151 mg/dL High <150 [facility] [employer] Phone: Comment on above: Triglyceride Guidelines: <150 Desirable 150-199 Borderline 200-499 High >499 Very high Based on AHA Guidelines for fasting triglyceride, March 2012. Att[place] Levelon 07-14-2020 Interpretation and review of laboratory results Abnormal [facility] Phone: [place] Date Last Dose NOT REPORTED [facility] Phone: [place] Dose Amount NOT REPORTED [facility] [employer] Phone: [place] Dose Time NOT REPORTED [facility] Phone: [place] Lvl 1.6 mmol/L Critically high 0.6 - 1.2 mmol/L [facility] Phone: CBC Auto Differentialon Basophils (Bld) [#/Vol] 0.06 10*3/uL [facility] [place] Basophils/100 WBC (Bld) 1 % 0 - 2 % [place] Differential Type NOT REPORTED [place] Eosinophils (Bld) [#/Vol] 0.22 10*3/uL [place] Eosinophils/100 WBC (Bld) 4 % 1 - 4 % [place] Erythrocyte distribution width (RBC) [Ratio] 12.7 % 11.8 - 14.4 % [place] Hematocrit (Bld) [Volume fraction] 43.2 % 36.3 - 47.1 % [place] Hemoglobin (Bld) [Mass/Vol] 12.6 g/dL 11.9 - 15.1 g/dL [place] Immature granulocytes (Bld) [#/Vol] 10*3/uL [place] Immature granulocytes (Bld) [#/Vol] 0 % 0 [place] Interpretation and review of laboratory results Abnormal [place] Lymphocytes (Bld) [#/Vol] 1.92 10*3/uL [place] Lymphocytes/100 WBC (Bld) 36 % 24 - 43 % [place] MCH (RBC) [Entitic mass] 32.0 pg 25.2 - 33.5 pg [place] MCHC (RBC) [Mass/Vol] 29.2 g/dL 28.4 - 34.8 g/dL [place] MCV (RBC) [Entitic vol] 109.6 fL High 82.6 - 102.9 fL [place] Monocytes (Bld) [#/Vol] 0.46 10*3/uL [place] Monocytes/100 WBC (Bld) 9 % 3 - 12 % [place] Platelet mean volume (Bld) [Entitic vol] 11.5 fL 8.1 - 13.5 fL [place] Platelets (Bld) [#/Vol] 256 10*3/uL [place] Platelets (Bld) [#/Vol] NOT REPORTED [place] RBC (Bld) [#/Vol] 3.94 10*6/uL Low 3.95 - 5.11 m/uL [place] RBC morphology finding Nom (Bld) MACROCYTOSIS PRESENT [place] Segmented neutrophils/100 WBC (Bld) 50 % 36 - 65 % [place] Segs Absolute 2.66 [place] WBC (Bld) [#/Vol] 0.0 10*3/uL 0.0 per 100 WBC [place] WBC (Bld) [#/Vol] 5.3 10*3/uL [place] WBC Morphology NOT REPORTED [place] Comprehensive Metabolic Pane eusebia 07-08-2020 Albumin [Mass/Vol] 4.3 g/dL 3.5 - 5.2 g/dL [place] Albumin/Globulin [Mass ratio] 1.5 {ratio} [place] ALP [Catalytic activity/Vol] 129 U/L High 35 - 104 U/L [place] ALT [Catalytic activity/Vol] 19 U/L 5 - 33 U/L [place] Anion gap [Moles/Vol] 10 mmol/L 9 - 17 mmol/L [place] AST [Catalytic activity/Vol] 18 U/L <32 [place] Bilirubin Ql (U) 0.21 mg/dL Low 0.3 - 1.2 mg/dL [place] Bun/Cre Ratio NOT REPORTED [place], [place] Calcium [Mass/Vol] 10.9 mg/dL High 8.6 - 10. 4 mg/dL [place] Chloride [Moles/Vol] 108 mmol/L High 98 - 10 7 mmol/L [place] CO2 [Moles/Vol] 21 mmol/L 20 - 31 mmol/L [place] Creatinine [Mass/Vol] 1.29 mg/dL High 0.5 - 0.9 mg/dL [place] GFR 51 mL/min Low >60 [place] GFR Non- 42 mL/min Low >60 [place] GFR/1.73 sq M predicted among non-blacks MDRD (S/P/Bld) [Vol rate/Area] NOT REPORTED [place] GFR/1.73 sq M predicted among non-blacks MDRD (S/P/Bld) [Vol rate/Area] [place] Comment on above: Average GFR for 60-6 9 years old: 85 mL/min/1.73sq m Chronic Kidney Disease: <60 mL/min/1.73sq m Kidney failure: <15 mL/min/1.73sq m eGFR calculated using average adult body mass. Additional eGFR calculator available at: http://www.[employer]/multiple_crcl_2012.htm Glucose [Mass/Vol] 88 mg/dL 70 - 99 mg/dL [place] Potassium [Moles/Vol] 3.9 mmol/L 3.7 - 5.3 mmol/L [place] Protein [Mass/Vol] 7.1 g/dL 6.4 - 8.3 g/dL [place] Sodium [Moles/Vol] 139 mmol/L 135 - 144 mmol/L [place] Urea nitrogen [Mass/Vol] 15 mg/dL 8 - 23 mg/dL [place] Laboratory - Chemistry and C hemistry - challengeOrdered By: Karla Clark on 07-08-2020 Albumin [Mass/Vol] 4.3 g/dL (3.5-5.2 ) [facility] Work Phone: Comment on above: Note: Responsible Ob observer helper: CCEV AUTOFILE (3002) ALT [Catalytic activity/Vol] 19 U/L (5-33 ) [facility] Work Phone: Comment on above: Note: Responsible Ob observer helper: CCEV AUTOFILE (3002) Anion gap [Moles/Vol] 10 mmol/L (9-17 ) [facility] Work Phone: Comment on above: Note: Responsible Ob observer helper: CCEV AUTOFILE (3002) AST [Catalytic activity/Vol] 18 U/L (<32 ) [facility] Work Phone: Comment on above: Note: Responsible Ob observer helper: CCEV AUTOFILE (3002) Bilirubin [Mass/Vol] 0.21 mg/dL Low (0.3-1.2 ) [facility] Work Phone: Comment on above: Note: Responsible Ob observer helper: CCEV AUTOFILE (3002) Calcium [Mass/Vol] 10.9 mg/dL High (8.6-10.4 ) [facility] Work Phone: Comment on above: Note: Responsible Ob observer helper: CCEV AUTOFILE (3002) Chloride [Moles/Vol] 108 mmol/L High (98-107 ) [facility] Work Phone: Comment on above: Note: Responsible Ob observer helper: CCEV AUTOFILE (3002) Cholesterol [Mass/Vol] 136 mg/dL (<200 ) [facility] Work Phone: Comment on above: Note: Cholesterol Gu idelines:<200 [id number] Borderline>240 UndesirableResponsible Observer: CCEV AUTOFILE (3002) Cholesterol.total/Judy sterol in HDL [Mass ratio] 3.0 {ratio} (<5 ) [facility] Work Phone: Comment on above: Note: Responsible Ob observer helper: CCEV AUTOFILE (3002) CO2 [Moles/Vol] 21 mmol/L (20-31 ) [facility] Work Phone: Comment on above: Note: Responsible Ob observer helper: CCEV AUTOFILE (3002) Creatinine [Mass/Vol] 1.29 mg/dL High (0.50- 0.90 ) [facility] Work Phone: Comment on above: Note: Responsible Ob observer helper: CCEV AUTOFILE (3002) Glucose [Mass/Vol] 88 mg/dL (70-99 ) [facility] Work Phone: Comment on above: Note: Responsible Ob observer helper: CCEV AUTOFILE (3002) Magnesium [Mass/Vol] 46 mg/dL (>40 ) [facility] Work Phone: Comment on above: Note: HDL Guidelines :<40 Samottfstbu60-31 Borderline>59 DesirableResponsible Observer: CCEV AUTOFILE (3002) Magnesium [Mass/Vol] 58 mg/dL (0-130 ) [facility] Work Phone: Comment on above: Note: LDL Guidelines :<100 [id number] Near to/above [id number] Borderline>159 UndesirableDirect (measured) LDL and calculated LDL are not interchangeable tests.Responsible Observer: CCEV AUTOFILE (3002) Magnesium [Mass/Vol] 162 mg/dL High (<150 ) [facility] Work Phone: Comment on above: Note: Triglyceride G uidelines:<150 [id number] Igirrdwpym434-996 High>499 Very highBased on AHA Guidelines for fasting triglyceride, March 2012.Responsible Observer: CCEV AUTOFILE (3002) Potassium [Moles/Vol] 3.9 mmol/L (3.7-5.3 ) [facility] Work Phone: Comment on above: Note: Responsible Ob observer helper: CCEV AUTOFILE (3002) Protein [Mass/Vol] 7.1 g/dL (6.4-8.3 ) [facility] Work Phone: Comment on above: Note: Responsible Ob observer helper: CCEV AUTOFILE (3002) Sodium [Moles/Vol] 139 mmol/L (135-144 ) [facility] Work Phone: Comment on above: Note: Responsible Ob observer helper: CCEV AUTOFILE (3002) Urea nitrogen [Mass/Vol] 15 mg/dL (8-23 ) [facility] Work Phone: Comment on above: Note: Responsible Ob observer helper: CCEV AUTOFILE (3002) Laboratory - Hematology and Cell countsOrdered By: Karla Clark on 07-08-2020 Basophils/100 WBC (Bld) 1 % (0-2 ) [facility] Work Phone: Comment on above: Note: Responsible Ob observer helper: XNV AUTOFILE (3018) Eosinophils (Bld) [#/Vol] 0.22 10*3/uL (0.00-0.44 ) [facility] Work Phone: Comment on above: Note: Responsible Ob observer helper: XNV AUTOFILE (3018) Eosinophils/100 WBC (Bld) 4 % (1-4 ) [facility] Work Phone: Comment on above: Note: Responsible Ob observer helper: XNV AUTOFILE (3018) Erythrocyte distribution width (RBC) [Ratio] 12.7 % (11.8-14.4 ) [facility] Work Phone: Comment on above: Note: Responsible Ob observer helper: XNV AUTOFILE (3018) Hematocrit (Bld) [Volume fraction] 43.2 % (36.3-47.1 ) [facility] Work Phone: Comment on above: Note: Responsible Ob observer helper: XNV AUTOFILE (3018) Hemoglobin (Bld) [Mass/Vol] 12.6 g/dL (11.9-15.1 ) [facility] Work Phone: Comment on above: Note: Responsible Ob observer helper: XNV AUTOFILE (3018) Immature granulocytes/100 WBC (Bld) 0 % (0 ) [facility] Work Phone: Comment on above: Note: Responsible Ob observer helper: XNV AUTOFILE (3018) Lymphocytes (Bld) [#/Vol] 1.92 10*3/uL (1.10-3.70 ) [facility] Work Phone: Comment on above: Note: Responsible Ob observer helper: XNV AUTOFILE (3018) Lymphocytes/100 WBC (Bld) 36 % (24-43 ) [facility] Work Phone: Comment on above: Note: Responsible Ob observer helper: XNV AUTOFILE (3018) MCH (RBC) [Entitic mass] 32.0 pg (25.2-33.5 ) [facility] Work Phone: Comment on above: Note: Responsible Ob observer helper: XNV AUTOFILE (3018) MCHC (RBC) [Mass/Vol] 29.2 g/dL (28.4- 34.8 ) [facility] Work Phone: Comment on above: Note: Responsible Ob observer helper: XNV AUTOFILE (3018) MCV (RBC) [Entitic vol] 109.6 fL High (82. 6-102. 9 ) [facility] Work Phone: Comment on above: Note: Responsible Ob observer helper: XNV AUTOFILE (3018) Monocytes (Bld) [#/Vol] 0.46 10*3/uL (0.1 0-1.20 ) [facility] Work Phone: Comment on above: Note: Responsible Ob observer helper: XNV AUTOFILE (3018) Monocytes/100 WBC (Bld) 9 % (3-12 ) [facility]: Comment on above: Note: Responsible Ob observer helper: XNV AUTOFILE (3018) Platelet mean volume (Bld) [Entitic vol] 11.5 fL (8.1-13.5 ) [facility] Work Phone: Comment on above: Note: Responsible Ob observer helper: XNV AUTOFILE (3018) Platelets (Bld) [#/Vol] 256 10*3/uL (138-453 ) [facility] Work Phone: Comment on above: Note: Responsible Ob observer helper: XNV AUTOFILE (3018) RBC (Bld) [#/Vol] 3.94 10*6/uL Low (3.95-5.11 ) [facility] Work Phone: Comment on above: Note: Responsible Ob observer helper: XNV AUTOFILE (3018) RBC morphology finding Nom (Bld) MACROCYTOSIS PRESENT [facility] Work Phone: Comment on above: Note: Responsible Ob observer helper: XNV AUTOFILE (3018) Segmented neutrophils/100 WBC (Bld) 50 % (36-65 ) [facility] Work Phone: Comment on above: Note: Responsible Ob observer helper: XNV AUTOFILE (3018) WBC (Bld) [#/Vol] 5.3 10*3/uL (3.5-11.3 ) [facility] Work Phone: Comment on above: Note: Responsible Ob observer helper: XNV AUTOFILE ([id number]) Laboratory - Microbiology an d Antimicrobial susceptibilityOrdered By: Karla Clark on 07-08-2020 Bacteria identified Cx Nom (Unsp spec) NOT REPORTED (NONE ) [facility] Work Phone: Laboratory - Specimen inform ationOrdered By: aKrla Clark on 07-08-2020 Color (U) YELLOW (YEL ) [facility] Work Phone: Comment on above: Note: Responsible Ob observer helper: LETY MARTÍNEZ (770) Laboratory - UrinalysisOrder ed By: Karla Clark on 07-08-2020 Amorphous sediment LM Ql (Urine sed) NOT REPORTED (NONE ) [facility] Work Phone: Crystals LM Nom (Urine sed) NOT REPORTED /HPF (NONE ) [facility] Work Phone: Epithelial cells LM Ql (Urine sed) 0 TO 2 /HPF (0-5 ) [facility] Work Phone: Comment on above: Note: Responsible Ob observer helper: LETY MARTÍNEZ (190) Yeast LM Ql (Urine sed) NOT REPORTED (NONE ) [facility] Work Phone: Lipid, Fastingon 07-08-2020 Cholesterol [Mass/Vol] 136 mg/dL <200 [place], [place] Comment on above: Cholesterol Guidelines: <200 Desirable 200-240 Borderline >240 Undesirable Cholesterol in HDL [Mass/Vol] 46 mg/dL >40 [place] Comment on above: HDL Guidelines: <40 Undesirable 40-59 Borderline >59 Desirable Cholesterol in LDL [Mass/Vol] 58 mg/dL 0 - 130 mg/dL [place] Comment on above: LDL Guidelines: <100 Desirable 100-129 Near to/above Desirable 130-159 Borderline >159 Undesirable Direct (measured) LDL and calculated LDL are not interchangeable tests. Cholesterol in VLDL [Mass/Vol] NOT REPORTED High 1 - 30 mg/dL [place] Cholesterol.total/Judy sterol in HDL [Mass ratio] 3 {ratio} <5 [place] Triglyceride, Fasting 162 mg/dL High <150 [place] Comment on above: Triglyceride Guidelines: <150 Desirable 150-199 Borderline 200-499 High >499 Very high Based on AHA Guidelines for fasting triglyceride, March 2012. Microscopic Urinalysison Amorphous, UA NOT REPORTED None [place], [place] Bacteria, UA NOT REPORTED None [place], [place] Casts UA NOT REPORTED [place] Crystals, UA NOT REPORTED None /HPF [place] Epithelial Cells UA 0 TO 2 [place] Mucus, UA NOT REPORTED None [place] Other Observations UA NOT REPORTED NOT REQ. [place] RBC (U) [#/Vol] None [place], [place] Comment on above: Reference range defi aggie for non-centrifuged specimen. Renal Epithelial, UA NOT REPORTED 0 /HPF [place] Trichomonas, UA NOT REPORTED None [place] WBC, UA 0 TO 2 [place] Yeast, UA NOT REPORTED None [place] - [place] No Panel InformationOrdered By: Karla Clark on 07-08-2020 (cont.) See Note [facility] Work Phone: Comment on above: Note: Average GFR fo r 60-69 years old:85 mL/min/1.73sq mChronic Kidney Disease:<60 mL/min/1.73sq mKidney failure:<15 mL/min/1.73sq meGFR calculated using average adult body mass. Additional eGFR calculatoravailable at:http://www.[employer]/multiple_crcl_2012.htmResponsible Observer: AMRIT AUTOFILE ([id number]) ----- See Note [facility] Work Phone: Comment on above: Note: Responsible Ob observer helper: LETY MARTÍNEZ (149) Abs. Basophil 0.06 k/uL (0.00-0.20 ) [facility] Work Phone: Comment on above: Note: Responsible Ob observer helper: XNV AUTOFILE ([id number]) Abs.Imm.Granulocyte <0.03 k/uL (0.00-0. 30 ) [facility] Work Phone: Comment on above: Note: Responsible Ob observer helper: XNV AUTOFILE ([id number]) Abs.Neutrophil (Seg) 2.66 k/uL (1.50-8 .10 ) [facility] Work Phone: Comment on above: Note: Responsible Ob observer helper: XNV AUTOFILE ([id number]) Acetoacetic Acid,Ur Negative (NEG ) [facility] Work Phone: Comment on above: Note: Responsible Ob observer helper: LETY MARTÍNEZ (659) Albumin/Glob Ratio 1.5 (1.0-2.5 ) [facility] Work Phone: Comment on above: Note: Responsible Ob observer helper: CCEV AUTOFILE (3002) Alkaline Phos 129 U/L High (35-104 ) [facility] Work Phone: Comment on above: Note: Responsible Ob observer helper: CCEV AUTOFILE (3002) Auto Diff Performed NOT REPORTED [facility] Work Phone: Bilirubin, SemiQt,Ur Negative (NEG ) [facility] Work Phone: Comment on above: Note: Responsible Ob observer helper: LETY MARTÍNEZ (251) BUN/CRE Ratio NOT REPORTED (9-20 ) [facility] Work Phone: Casts NOT REPORTED /LPF (0-8 ) [facility] Work Phone: Cholesterol,VLDL NOT REPORTED mg/dL (1-30 ) [facility] Work Phone: Comment NOT REPORTED [facility] Work Phone: Epithelial, Renal NOT REPORTED /HPF (0 ) [facility] Work Phone: GFR, Amer 51 mL/min Low (>60 ) [facility] Work Phone: Comment on above: Note: Responsible Ob observer helper: CCEV AUTOFILE (3002) GFR,non Amer 42 mL/min Low (>60 ) [facility] Work Phone: Comment on above: Note: Responsible Ob observer helper: CCEV AUTOFILE (3002) Glucose,Semi-qnt,Ur Negative (NEG ) [facility] Work Phone: Comment on above: Note: Responsible Ob observer helper: LETY MARTÍNEZ (736) Hemoglobin, Ur Negative (NEG ) [facility] Work Phone: Comment on above: Note: Responsible Ob observer helper: LETY MARTÍNEZ (341) Leuckocyte Esterase SMALL Abnormal (NEG ) [facility] Work Phone: Comment on above: Note: Responsible Ob observer helper: LETY MARTÍNEZ (738) Mucus Strands NOT REPORTED (NONE ) [facility] Work Phone: Nitrite,Ur Negative (NEG ) [facility] Work Phone: Comment on above: Note: Responsible Ob observer helper: LETY MARTÍNEZ (739) NRBC Automated 0.0 per_100_WBC (0.0 ) [facility] Work Phone: Comment on above: Note: Responsible Ob observer helper: XNV AUTOFILE ([id number]) Other Observations NOT REPORTED (NREQ ) [facility] Work Phone: Performing Lab: see note [facility] Work Phone: Comment on above: Note: MICHELLE Kinney [address] [facility] [address] PH,Ur 7.5 (5.0-8.0 ) [facility] Work Phone: Comment on above: Note: Responsible Ob observer helper: LETY MARTÍNEZ (301) Platelet Estimate NOT REPORTED [facility] Work Phone: Protein, Semi-qnt,Ur Negative (NEG ) [facility] Work Phone: Comment on above: Note: Responsible Ob observer helper: LETY MARTÍNEZ (971) Reported Physicians See Note [facility] Work Phone: Comment on above: Note: Reported Physi cians:Ordering: Cotton, AimeeAttending: Cotton, AimeeReferring: Cotton, Karla Spec. [place],Ur 1.006 (1.005-1.0 30 ) [facility] Work Phone: Comment on above: Note: Responsible Ob observer helper: LETY MARTÍNEZ (065) Staging: NOT REPORTED [facility] Work Phone: Trichomonas NOT REPORTED (NONE ) [facility] Work Phone: Turbidity CLEAR (CLEAR ) [facility] Work Phone: Comment on above: Note: Responsible Ob observer helper: LETY MARTÍNEZ (565) Urine RBC's None /HPF (0-4 ) [facility] Work Phone: Comment on above: Note: Reference rang e defined for non-centrifuged specimen.Responsible Observer: LETY MARTÍNEZ (909) Urine WBC's 0 TO 2 /HPF (0-5 ) [facility] Work Phone: Comment on above: Note: Responsible Ob observer helper: LETY MARTÍNEZ (272) Urobilinogen,Ur Normal (NORM ) [facility] Work Phone: Comment on above: Note: Responsible Ob observer helper: LETY MARTÍNEZ (510) WBC Morphology NOT REPORTED [facility] Work Phone: Otheron 07-08-2020 Interpretation and review of laboratory results Abnormal [facility] [place], [place] Urinalysis Reflex to Culture on 07-08-2020 Bilirubin U[facility] Negative [facility] [place] [place] Color, UA YELLOW YELLOW [facility] [place] Glucose, Ur Negative NEGATIVE [place] Interpretation and review of laboratory results Abnormal [place] Ketones Ql (U) Negative NEGATIVE [place] Leukocyte esterase Test strip Ql (U) SMALL Abnormal NEGATIVE [place] Nitrite, Urine Negative NEGATIVE [place] pH, UA 7.5 [place] Protein (U) [Mass/Vol] Negative NEGATIVE [place], [place] Specific [place], UA 1.006 [place], [place] Turbidity UA CLEAR CLEAR [place] Urinalysis Comments NOT REPORTED [place] Urine Hgb Negative NEGATIVE [place] Urobilinogen, Urine Normal Normal [place] BUNon 06-30-2020 Urea nitrogen [Mass/Vol] 17 mg/dL 8 - 23 mg/dL [place] Creatinine, Serumon 06-30-19 Creatinine [Mass/Vol] 1.26 mg/dL High 0.5 - 0.9 mg/dL [place] GFR 52 mL/min Low >60 [place] GFR Non- 43 mL/min Low >60 [place] Interpretation and review of laboratory results Abnormal [place] Laboratory - Chemistry and C hemistry - challengeOrdered By: Karla Clark on 06-30-2020 Creatinine [Mass/Vol] 1.26 mg/dL High (0.50- 0.90 ) [facility] Work Phone: Comment on above: Note: Responsible Ob observer helper: CET ONE AUTOFILE ([id number]) Urea nitrogen [Mass/Vol] 17 mg/dL (8-23 ) [facility] Work Phone: Comment on above: Note: Responsible Ob observer helper: CET ONE AUTOFILE ([id number]) Laboratory - Microbiology an d Antimicrobial susceptibilityOrdered By: Karla Clark on 06-30-2020 SARS-CoV-2 (COVID-19) RNA MARCIO+probe Ql (Resp) Not detected (Not Detected ) [facility] Work Phone: Comment on above: [...] of in vitro diagnostic tests for detection [id number] virus and/or diagnosis of COVID-19 infectionunder section [...] Unremarkable exam. N o significant pituitary mass. [facility] MRI OF THE BRAIN WITHOUT AND [...] The soft tissues demonstrate no acute abnormality. [facility] [place], [place] Incoming Radiant Results From [facility] - 06/30/2020 4:29 PM EST EXAMINATION: MRI [...] IMPRESSION: Unremarkable exam. No significant pituitary mass. [place] Metabolic Panelon 06-30-2020 GFR/1.73 sq M predicted among non-blacks MDRD (S/P/Bld) [Vol rate/Area] [place], [place] Comment on above: Average GFR for 60-6 9 years old: 85 mL/min/1.73sq m Chronic Kidney Disease: <60 mL/min/1.73sq m Kidney failure: <15 mL/min/1.73sq m eGFR calculated using average adult body mass. Additional eGFR calculator available at: http://www.[employer]/multiple_crcl_2012.htm Stage 1: Some kidney damage normal GFR Stage 2: Mild kidney damage GFR 60-89 Stage 3: Moderate kidney damage GFR 30-59 Stage 4: Severe kidney damage GFR 15-29 Stage 5: Severe kidney damage GFR <15 ESRD - chronic treatment by dialysis or transplant No Panel InformationOrdered By: Karla Clark on 06-30-2020 (cont.) See Note [facility] Work Phone: Comment on above: Note: Average GFR fo r 60-69 years old:85 mL/min/1.73sq mChronic Kidney Disease:<60 mL/min/1.73sq mKidney failure:<15 mL/min/1.73sq meGFR calculated using average adult body mass. Additional eGFR calculatoravailable at:http://www.[employer]/multiple_crcl_2012.htmResponsible Observer: LUIZ MALDONADO AUTOFILE ([id number]) GFR, Amer 52 mL/min Low (>60 ) [facility] Work Phone: Comment on above: Note: Responsible Ob observer helper: CET ONE AUTOFILE ([id number]) GFR,non Amer 43 mL/min Low (>60 ) [facility] Work Phone: Comment on above: Note: Responsible Ob observer helper: CET ONE AUTOFILE ([id number]) Performing Lab: see note [facility] Work Phone: Comment on above: Note: [facility] [address] [address] Reported Physicians See Note [facility] Work Phone: Comment on above: Note: Reported Physi cians:Ordering: Cotton, AimeeAttending: Cotton, AimeeReferring: Cotton, Karla Staging: See Note [facility] Work Phone: Comment on above: Note: Stage 1: Some kidney damage normal GFRStage 2: Mild kidney damage GFR 60-89Stage 3: Moderate kidney damage GFR 30-59Stage 4: Severe kidney damage GFR 15-29Stage 5: Severe kidney damage GFR <15ESRD - chronic treatment by dialysis or transplantResponsible Observer: LUIZ MALDONADO AUTOFILE ([id number]) Surgical Pathologyon 021 Surgical Pathology Report -- Diagnosis -- LEFT BREAST, 4:00, NEEDLE BIOPSIES:- BENIGN FIBROADIPOSE TISSUE.- NO EPITHELIAL BREAST COMPONENT IS IDENTIFIED IN THE BIOPSY MATERIAL.- NEGATIVE FOR ATYPIA AND MALIGNANCY. Joby Paredes, Electronically Signed [facility]/06/09/2020 Clinical Information Pre-op Diagnosis: LEFT BREAST MASS [...] SURGICAL PATHOLOGY CONSULTATION Patient Name: GAIL ALMEIDA [facility] Rec: [id number] Path Number: [id number] [facility] ANATOMIC PATHOLOGY [address] [place] [address]. [place], [place] [address] [place], [place] Otheron 06-08-2020 Addendum by Del Ross [...] Return to yearly screening schedule is recommended. [place] Technically successf ul ultrasound guided core biopsy of subtle sonographic abnormality in the posterior 4 o'clock left breast near the chest wall and coil shapedclip marker placement as described above. BIRADS: ZW - Pathology pending. [place] EXAMINATION: ULTRASOUND-GUIDED LEFT BREAST BIOPSY WITH [...] placement imaging performed in a separate room. [facility] [place] [place], [place] Incoming Radiant Results From [facility] - 06/08/2020 11:19 AM EST EXAMINATION: ULTRASOUND-GUIDED [...] described above. BIRADS: ZW - Pathology pending. [place] Prolactinon 06-06-2020 Interpretation and review of laboratory results Abnormal [place] Prolactin 223 ug/L High 4.79 - 23.3 ug/L [place] Comment on above: The presence of [...] patient at the time of service. A claim representative from the radiology department will be contacting your office and assisting the patient in getting appropriate follow-up. [place] EXAMINATION: DIAGNOS TIC DIGITAL BILATERAL BREASTS [...] tissue sampling of this location is advised. [facility] [place], [place], [place] Incoming Radiant Results From [employer] - 04/04/2020 5:42 PM EST EXAMINATION: DIAGNOSTIC [...] patient at the time of service. A claim representative from the radiology department will be contacting your office and assisting the patient in getting appropriate follow-up. [place] BUNon 03-31-2020 Urea nitrogen [Mass/Vol] 21 mg/dL 8 - 23 mg/dL [place] Creatinine, Serumon 03-31-20 20 Creatinine [Mass/Vol] 1.1 mg/dL High 0.5 - 0.9 mg/dL [place] GFR >60 >60 mL/min [place] GFR Non- 50 mL/min Low >60 [place] GFR/1.73 sq M predicted among non-blacks MDRD (S/P/Bld) [Vol rate/Area] [place] Comment on above: Average GFR for 60-6 9 years old: 85 mL/min/1.73sq m Chronic Kidney Disease: <60 mL/min/1.73sq m Kidney failure: <15 mL/min/1.73sq m eGFR calculated using average adult body mass. Additional eGFR calculator available at: http://www.[employer]_crcl_2012.htm GFR/1.73 sq M predicted among non-blacks MDRD (S/P/Bld) [Vol rate/Area] NOT REPORTED [place] Interpretation and review of laboratory results Abnormal [place] Metabolic Panelon 03-31-2020 Creatinine [Mass/Vol] 1.10 mg/dL High (0.50- 0.90 ) [facility] Work Phone: Comment on above: Note: Responsible Ob observer helper: PhanfareEV AUTOFILE ([id number]) Urea nitrogen [Mass/Vol] 21 mg/dL (8-23) [facility] Work Phone: Comment on above: Note: Responsible Ob observer helper: CEEV AUTOFILE ([id number]) Otheron 03-31-2020 (cont.) See Note [facility] Work Phone: Comment on above: Note: Average GFR fo r 60-69 years old:85 mL/min/1.73sq mChronic Kidney Disease:<60 mL/min/1.73sq mKidney failure:<15 mL/min/1.73sq meGFR calculated using average adult body mass. Additional eGFR calculatoravailable at:http://www.[employer]/multiple_crcl_2012.htmResponsible Observer: CEEV AUTOFILE ([id number]) GFR, Amer >60 mL/min (>60) [facility] Work Phone: Comment on above: Note: Responsible Ob observer helper: CEEV AUTOFILE (3003) GFR,non Amer 50 mL/min Low (>60) [facility] Work Phone: Comment on above: Note: Responsible Ob observer helper: [employer] AUTOFILE ([id number]) Performing Lab: see note [facility] Work Phone: Comment on above: Note: MICHELLE Emily Kinney [address] [facility] [id number] Reported Physicians See Note [facility] Work Phone: Comment on above: Note: Reported Physi cians:Ordering: Cotton, AimeeAttending: Cotton, AimeeReferring: Cotton, Karla Staging: NOT REPORTED [facility] Work Phone: CBC Auto Differentialon 10-0 -2019 Basophils (Bld) [#/Vol] 0.06 10*3/uL [place], [place] Basophils/100 WBC (Bld) 1 % 0 - 2 % [place] Differential Type NOT REPORTED [place] Eosinophils (Bld) [#/Vol] 0.15 10*3/uL [place] Eosinophils/100 WBC (Bld) 3 % 1 - 4 % [place] Erythrocyte distribution width (RBC) [Ratio] 13.2 % 11.8 - 14.4 % [place] Hematocrit (Bld) [Volume fraction] 42.7 % 36.3 - 47.1 % [place] Hemoglobin (Bld) [Mass/Vol] 12.6 g/dL 11.9 - 15.1 g/dL [place] Immature granulocytes (Bld) [#/Vol] 0 % 0 [place] Immature granulocytes (Bld) [#/Vol] 10*3/uL [place] Interpretation and review of laboratory results Abnormal [place] Lymphocytes (Bld) [#/Vol] 1.57 10*3/uL [place] Lymphocytes/100 WBC (Bld) 29 % 24 - 43 % [place] MCH (RBC) [Entitic mass] 32.1 pg 25.2 - 33.5 pg [place] MCHC (RBC) [Mass/Vol] 29.5 g/dL 28.4 - 34.8 g/dL [place] MCV (RBC) [Entitic vol] 108.7 fL High 82.6 - 102.9 fL [place] Monocytes (Bld) [#/Vol] 0.45 10*3/uL [place] Monocytes/100 WBC (Bld) 8 % 3 - 12 % [place] Platelet mean volume (Bld) [Entitic vol] 11.1 fL 8.1 - 13.5 fL [place] Platelets (Bld) [#/Vol] NOT REPORTED [place] Platelets (Bld) [#/Vol] 259 10*3/uL [place] RBC (Bld) [#/Vol] 3.93 10*6/uL Low 3.95 - 5.11 m/uL [place] RBC morphology finding Nom (Bld) MACROCYTOSIS PRESENT [place] Segmented neutrophils/100 WBC (Bld) 59 % 36 - 65 % [place] Segs Absolute 3.12 [place] WBC (Bld) [#/Vol] 5.4 10*3/uL [place] WBC (Bld) [#/Vol] 0.0 10*3/uL 0.0 per 100 WBC [place] WBC Morphology NOT REPORTED [place] [facility] 03-10-2020 Cholesterol [Mass/Vol] 139 mg/dL (<200) [facility] Work Phone: Comment on above: Note: Cholesterol Gu idelines:<200 [id number] Borderline>240 UndesirableResponsible Observer: CCEV AUTOFILE ([id number]) Comprehensive Metabolic Pane eusebia 03-10-2020 Albumin [Mass/Vol] 4.3 g/dL 3.5 - 5.2 g/dL [place] Albumin/Globulin [Mass ratio] 1.9 {ratio} [place] ALP [Catalytic activity/Vol] 136 U/L High 35 - 104 U/L [place] ALT [Catalytic activity/Vol] 50 U/L High 5 - 33 U/L [place] Anion gap [Moles/Vol] 12 mmol/L 9 - 17 mmol/L [place] AST [Catalytic activity/Vol] 28 U/L <32 [place] Bilirubin Ql (U) 0.18 mg/dL Low 0.3 - 1.2 mg/dL [place] Bun/Cre Ratio NOT REPORTED [place], [place] Calcium [Mass/Vol] 10.7 mg/dL High 8.6 - 10. 4 mg/dL [place] Chloride [Moles/Vol] 109 mmol/L High 98 - 10 7 mmol/L [place] CO2 [Moles/Vol] 19 mmol/L Low 20 - 31 mmol/L [place] Creatinine [Mass/Vol] 1.13 mg/dL High 0.5 - 0.9 mg/dL [place] GFR 59 mL/min Low >60 [place] GFR Non- 49 mL/min Low >60 [place] GFR/1.73 sq M predicted among non-blacks MDRD (S/P/Bld) [Vol rate/Area] [place] Comment on above: Average GFR for 60-6 9 years old: 85 mL/min/1.73sq m Chronic Kidney Disease: <60 mL/min/1.73sq m Kidney failure: <15 mL/min/1.73sq m eGFR calculated using average adult body mass. Additional eGFR calculator available at: http://www.[employer]/multiple_crcl_2012.htm GFR/1.73 sq M predicted among non-blacks MDRD (S/P/Bld) [Vol rate/Area] NOT REPORTED [place] Glucose [Mass/Vol] 87 mg/dL 70 - 99 mg/dL [place] Interpretation and review of laboratory results Abnormal [place] Potassium [Moles/Vol] 4.4 mmol/L 3.7 - 5.3 mmol/L [place] Protein [Mass/Vol] 6.6 g/dL 6.4 - 8.3 g/dL [facility] [place] Sodium [Moles/Vol] 140 mmol/L 135 - 144 mmol/L [place] Urea nitrogen [Mass/Vol] 21 mg/dL 8 - 23 mg/dL [place] Hematologyon 03-10-2020 Basophils/100 WBC (Bld) 1 % (0-2) [facility] Work Phone: Comment on above: Note: Responsible Ob observer helper: [employer] AUTOFILE ([id number]) Eosinophils (Bld) [#/Vol] 0.15 10*3/uL (0.00-0.44 ) [facility] Work Phone: Comment on above: Note: Responsible Ob observer helper: [employer] AUTOFILE ([id number]) Eosinophils/100 WBC (Bld) 3 % (1-4) [facility] Work Phone: Comment on above: Note: Responsible Ob observer helper: [employer] AUTOFILE (3018) Hematocrit (Bld) [Volume fraction] 42.7 % (36.3-47.1 ) [facility] Work Phone: Comment on above: Note: Responsible Ob observer helper: [employer] AUTOFILE (3018) Hemoglobin (Bld) [Mass/Vol] 12.6 g/dL (11.9-15.1 ) [facility] Work Phone: Comment on above: Note: Responsible Ob observer helper: [employer] AUTOFILE ([id number]) Lymphocytes (Bld) [#/Vol] 1.57 10*3/uL (1.10-3.70 ) [facility] Work Phone: Comment on above: Note: Responsible Ob observer helper: [employer] AUTOFILE (3018) Lymphocytes/100 WBC (Bld) 29 % (24-43) [facility] Work Phone: Comment on above: Note: Responsible Ob observer helper: [employer] AUTOFILE (3018) MCH (RBC) [Entitic mass] 32.1 pg (25.2-33.5 ) [facility] Work Phone: Comment on above: Note: Responsible Ob observer helper: [employer] AUTOFILE ([id number]) MCV (RBC) [Entitic vol] 108.7 fL High (82. 6-102. 9) [facility] Work Phone: Comment on above: Note: Responsible Ob observer helper: [employer] AUTOFILE ([id number]) Monocytes (Bld) [#/Vol] 0.45 10*3/uL (0.1 0-1.20 ) [facility] Work Phone: Comment on above: Note: Responsible Ob observer helper: [employer] AUTOFILE (3018) Monocytes/100 WBC (Bld) 8 % (3-12) [facility] Work Phone: Comment on above: Note: Responsible Ob observer helper: [employer] AUTOFILE (3018) Platelets (Bld) [#/Vol] NOT REPORTED [facility] Work Phone: Platelets (Bld) [#/Vol] 259 10*3/uL (138-453) [facility] Work Phone: Comment on above: Note: Responsible Ob observer helper: XNV AUTOFILE (3018) RBC (Bld) [#/Vol] 3.93 10*6/uL Low (3.95-5.11 ) [facility] Work Phone: Comment on above: Note: Responsible Ob observer helper: X[employer] AUTOFILE (3018) RBC morphology finding Nom (Bld) MACROCYTOSIS PRESENT [facility] Work Phone: Comment on above: Note: Responsible Ob observer helper: XNV AUTOFILE (3018) WBC (Bld) [#/Vol] 5.4 10*3/uL (3.5-11.3) [facility] Work Phone: Comment on above: Note: Responsible Ob observer helper: [employer] AUTOFILE (3018) WBC (Bld) [#/Vol] 0.0 per_100_WBC (0.0) [facility] Work Phone: Comment on above: Note: Responsible Ob observer helper: XNV AUTOFILE ([id number]) Lipid, Fastingon 03-10-2020 Cholesterol [Mass/Vol] 139 mg/dL <200 [place] Comment on above: Cholesterol Guidelines: <200 Desirable 200-240 Borderline >240 Undesirable Cholesterol in HDL [Mass/Vol] 46 mg/dL >40 [place] Comment on above: HDL Guidelines: <40 Undesirable 40-59 Borderline >59 Desirable Cholesterol in LDL [Mass/Vol] 73 mg/dL 0 - 130 mg/dL [place] Comment on above: LDL Guidelines: <100 Desirable 100-129 Near to/above Desirable 130-159 Borderline >159 Undesirable Direct (measured) LDL and calculated LDL are not interchangeable tests. Cholesterol in VLDL [Mass/Vol] NOT REPORTED 1 - 30 mg/dL [place] Cholesterol.total/Judy sterol in HDL [Mass ratio] 3 {ratio} <5 [place] Triglyceride, Fasting 102 mg/dL <150 [place] Comment on above: Triglyceride Guidelines: <150 Desirable 150-199 Borderline 200-499 High >499 Very high Based on AHA Guidelines for fasting triglyceride, March 2012. Metabolic Panelon 03-10-2020 Albumin [Mass/Vol] 4.3 g/dL (3.5-5.2) [facility] Work Phone: Comment on above: Note: Responsible Ob observer helper: CCE[employer] AUTOFILE (3002) ALT [Catalytic activity/Vol] 50 U/L High (5-33) [facility] Work Phone: Comment on above: Note: Responsible Ob observer helper: C[employer] AUTOFILE (3002) Anion gap [Moles/Vol] 12 mmol/L (9-17) [facility] Work Phone: Comment on above: Note: Responsible Ob observer helper: CCE[employer] AUTOFILE (3002) AST [Catalytic activity/Vol] 28 U/L (<32) [facility] Work Phone: Comment on above: Note: Responsible Ob observer helper: CCE[employer] AUTOFILE (3002) Bilirubin [Mass/Vol] 0.18 mg/dL Low (0.3-1.2) [facility] Work Phone: Comment on above: Note: Responsible Ob observer helper: CCE[employer] AUTOFILE (3002) Calcium [Mass/Vol] 10.7 mg/dL High (8.6-10.4) [facility] Work Phone: Comment on above: Note: Responsible Ob observer helper: CCEV AUTOFILE (3002) Chloride [Moles/Vol] 109 mmol/L High (98-107) [facility] Work Phone: Comment on above: Note: Responsible Ob observer helper: CCEV AUTOFILE (3002) CO2 [Moles/Vol] 19 mmol/L Low (20-31) [facility] Work Phone: Comment on above: Note: Responsible Ob observer helper: CCE[employer] AUTOFILE (3002) Creatinine [Mass/Vol] 1.13 mg/dL High (0.50- 0.90 ) [facility] Work Phone: Comment on above: Note: Responsible Ob observer helper: CCEV AUTOFILE (3002) Glucose [Mass/Vol] 87 mg/dL (70-99) [facility] Work Phone: Comment on above: Note: Responsible Ob observer helper: CCEV AUTOFILE (3002) Potassium [Moles/Vol] 4.4 mmol/L (3.7-5.3) [facility] Work Phone: Comment on above: Note: Responsible Ob observer helper: CCEV AUTOFILE (3002) Protein [Mass/Vol] 6.6 g/dL (6.4-8.3) [facility] Work Phone: Comment on above: Note: Responsible Ob observer helper: CCEV AUTOFILE (3002) Sodium [Moles/Vol] 140 mmol/L (135-144) [facility] Work Phone: Comment on above: Note: Responsible Ob observer helper: CCEV AUTOFILE (3002) Urea nitrogen [Mass/Vol] 21 mg/dL (8-23) [facility] Work Phone: Comment on above: Note: Responsible Ob observer helper: CCEV AUTOFILE (3002) Otheron 03-10-2020 (cont.) See Note [facility] Work Phone: Comment on above: Note: Average GFR fo r 60-69 years old:85 mL/min/1.73sq mChronic Kidney Disease:<60 mL/min/1.73sq mKidney failure:<15 mL/min/1.73sq meGFR calculated using average adult body mass. Additional eGFR calculatoravailable at:http://www.[employer]/multiple_crcl_2012.htmResponsible Observer: CCEV AUTOFILE (3002) Abs. Basophil 0.06 k/uL (0.00-0.20 ) [facility] Work Phone: Comment on above: Note: Responsible Ob observer helper: XNV AUTOFILE (3018) Abs.Imm.Granulocyte <0.03 k/uL (0.00-0. 30 ) [facility] Work Phone: Comment on above: Note: Responsible Ob observer helper: XNV AUTOFILE ([id number]) Abs.Neutrophil (Seg) 3.12 k/uL (1.50-8 .10 ) [facility] Work Phone: Comment on above: Note: Responsible Ob observer helper: XNV AUTOFILE (3018) Albumin/Glob Ratio 1.9 (1.0-2.5) [facility] Work Phone: Comment on above: Note: Responsible Ob observer helper: C[employer] AUTOFILE (3002) Alkaline Phos 136 U/L High (35-104) [facility] Work Phone: Comment on above: Note: Responsible Ob observer helper: CCEV AUTOFILE (3002) Auto Diff Performed NOT REPORTED [facility] Work Phone: BUN/CRE Ratio NOT REPORTED (9-20) [facility] Work Phone: Cholesterol,HDL 46 mg/dL (>40) [facility] Work Phone: Comment on above: Note: HDL Guidelines :<40 [id number] Borderline>59 DesirableResponsible Observer: CCEV AUTOFILE (3002) Cholesterol,LDL 73 mg/dL (0-130) [facility] Work Phone: Comment on above: Note: LDL Guidelines :<100 [id number] Near to/above [id number] Borderline>159 UndesirableDirect (measured) LDL and calculated LDL are not interchangeable tests.Responsible Observer: CCEV AUTOFILE (3002) Cholesterol,VLDL NOT REPORTED mg/dL (1-30) [facility] Work Phone: Cholesterol.total/Judy sterol in HDL [Mass ratio] 3.0 {ratio} (<5) [facility] Work Phone: Comment on above: Note: Responsible Ob observer helper: CCE[employer] AUTOFILE (3002) Erythrocyte distribution width (RBC) [Ratio] 13.2 % (11.8-14.4 ) [facility] Work Phone: Comment on above: Note: Responsible Ob observer helper: X[employer] AUTOFILE ([id number]) GFR, Amer 59 mL/min Low (>60) [facility] Work Phone: Comment on above: Note: Responsible Ob observer helper: C[employer] AUTOFILE (3002) GFR,non Amer 49 mL/min Low (>60) [facility] Work Phone: Comment on above: Note: Responsible Ob observer helper: C[employer] AUTOFILE (3002) Immature granulocytes (Bld) [#/Vol] 0 % (0) [facility] Work Phone: Comment on above: Note: Responsible Ob observer helper: X[employer] AUTOFILE (3018) MCHC (RBC) [Mass/Vol] 29.5 g/dL (28.4- 34.8 ) [facility] Work Phone: Comment on above: Note: Responsible Ob observer helper: X[employer] AUTOFILE (3017) Performing Lab: see note [facility] Work Phone: Comment on above: Note: MICHELLE [facility] [address] [facility] [id number] Platelet mean volume (Bld) [Entitic vol] 11.1 fL (8.1-13.5) [facility] Work Phone: Comment on above: Note: Responsible Ob observer helper: XNV AUTOFILE (3017) Reported Physicians See Note [facility] Work Phone: Comment on above: Note: Reported Physi cians:Ordering: Curtis AimeeAttending: Curtis AimeeReferring: Cotton, Karla Segmented neutrophils/100 WBC (Bld) 59 % (36-65) [facility] Work Phone: Comment on above: Note: Responsible Ob observer helper: XNV AUTOFILE (136) Staging: NOT REPORTED [facility] Work Phone: Thyroid Stim. Horm. 1.01 mIU/L (0.30-5. 00 ) [facility] Work Phone: Comment on above: Note: Responsible Ob observer helper: NA ARORA ([id number]) Triglyceride,Fasting 102 mg/dL (<150) [facility] Work Phone: Comment on above: Note: Triglyceride G uidelines:<150 [id number] [id number] High>499 Very highBased on AHA Guidelines for fasting triglyceride, March 2012.Responsible Observer: CCEV AUTOFILE ([id number]) WBC Morphology NOT REPORTED [facility] Work Phone: TSH with Reflexon 03-10-2020 TSH Qn 1.01 m[IU]/L [place] Creatinine, Serumon 08-03-19 20 Creatinine [Mass/Vol] 1.06 mg/dL High 0.5 - 0.9 mg/dL [place] GFR >60 >60 mL/min [place] GFR Non- 53 mL/min Low >60 [place] Interpretation and review of laboratory results Abnormal [place] Glucose, randomon 08-03-2019 Glucose [Mass/Vol] 98 mg/dL 70 - 99 mg/dL [place] Lipid Panelon 08-03-2019 Cholesterol [Mass/Vol] 145 mg/dL <200 [place] Comment on above: Cholesterol Guidelines: <200 Desirable 200-240 Borderline >240 Undesirable Cholesterol in HDL [Mass/Vol] 54 mg/dL >40 [place] Comment on above: HDL Guidelines: <40 Undesirable 40-59 Borderline >59 Desirable Cholesterol in LDL [Mass/Vol] 75 mg/dL 0 - 130 mg/dL [place] Comment on above: LDL Guidelines: <100 Desirable 100-129 Near to/above Desirable 130-159 Borderline >159 Undesirable Direct (measured) LDL and calculated LDL are not interchangeable tests. Cholesterol in VLDL [Mass/Vol] NOT REPORTED 1 - 30 mg/dL [place] Cholesterol.total/Judy sterol in HDL [Mass ratio] 2.7 {ratio} <5 [place] Triglyceride [Mass/Vol] 80 mg/dL <150 [place] Comment on above: Triglyceride Guidelines: <150 Desirable 150-199 Borderline 200-499 High >499 Very high Based on AHA Guidelines for fasting triglyceride, March 2012. [place] Levelon 08-03-2019 [place] Date Last Dose NOT REPORTED [place] Dose Amount NOT REPORTED [place] Dose Time NOT REPORTED [place] Lvl 1.1 mmol/L 0.6 - 1.2 mmol/L [place] Metabolic Panelon 08-03-2019 GFR/1.73 sq M predicted among non-blacks MDRD (S/P/Bld) [Vol rate/Area] [place] Comment on above: Average GFR for 60-6 9 years old: 85 mL/min/1.73sq m Chronic Kidney Disease: <60 mL/min/1.73sq m Kidney failure: <15 mL/min/1.73sq m eGFR calculated using average adult body mass. Additional eGFR calculator available at: http://www.[employer]/multiple_crcl_2012.htm Stage 1: Some kidney damage normal GFR Stage 2: Mild kidney damage GFR 60-89 Stage 3: Moderate kidney damage GFR 30-59 Stage 4: Severe kidney damage GFR 15-29 Stage 5: Severe kidney damage GFR <15 ESRD - chronic treatment by dialysis or transplant TSH without Reflexon 020 TSH Qn 1.45 m[IU]/L [place] US BREAST LIMITED LEFTon 1. Previously [...] sent to the patient regarding the results. [place] EXAMINATION: TARGETE D ULTRASOUND OF THE [...] this region as no target was demonstrated. [facility] [place], [place] Incoming Radiant Results From [employer] - 04/10/2019 12:52 PM EST EXAMINATION: TARGETED [...] sent to the patient regarding the results. [facility] BREAST COMPLETE LEFTon 2 site biopsy [...] patient at the time of service. A claim representative from the radiology department will be contacting your office and assisting the patient in getting appropriate follow-up. [place] EXAMINATION: TARGETE D ULTRASOUND OF THE [...] images of the axilla show no lymphadenopathy. [place], [place], [place] Incoming Radiant Results From [employer] - 03/11/2019 1:56 PM EDT EXAMINATION: TARGETED [...] patient at the time of service. A claim representative from the radiology department will be contacting your office and assisting the patient in getting appropriate follow-up. [employer] KSMAHESH XR FOOT RIGHT (MIN 3 VIEWS)o n 02-16-2019 No acute osseous abnormality. 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 [facility] EXAMINATION: THREE X RAY VIEWS OF THE RIGHT FOOT 02/16/2019 11:39 am COMPARISON: None. 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 Lisfranc alignment is normal. 5th metatarsal base is intact. Talonavicular degenerative change. [facility] [place] [place] Incoming Radiant Results From [employer] - 02/16/2019 12:08 PM EDT EXAMINATION: THREE [...] abnormality. 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 [employer] [place]MA[place]ESH [facility] 11-14-2018 Cholesterol [Mass/Vol] 150 mg/dL (<200) [facility] Work Phone: Comment on above: Note: Cholesterol Gu idelines: <200 Desirable 200-240 Borderline >240 Undesirable Responsible Observer: CET TWO AUTOFILE ([id number]) Triglyceride [Mass/Vol] 147 mg/dL (<150) H ealth [facility] Work Phone: Comment on above: Note: Triglyceride G uidelines: <150 Desirable 150-199 Borderline 200-499 High >499 Very high Based on AHA Guidelines for fasting triglyceride, March 2012. Responsible Observer: LUIZ TWO AUTOFILE (3006) Hematologyon 11-14-2018 Basophils/100 WBC (Bld) 1 % (0-2) [facility] Work Phone: Comment on above: Note: Responsible Ob observer helper: XNT AUTOFILE (3019) Eosinophils (Bld) [#/Vol] 0.15 10*3/uL (0.00-0.44 ) [facility] Work Phone: Comment on above: Note: Responsible Ob observer helper: XNT AUTOFILE (3019) Eosinophils/100 WBC (Bld) 3 % (1-4) [facility] Work Phone: Comment on above: Note: Responsible Ob observer helper: XNT AUTOFILE (3019) Hematocrit (Bld) [Volume fraction] 39.9 % (36.3-47.1 ) [facility] Work Phone: Comment on above: Note: Responsible Ob observer helper: XNT AUTOFILE (3019) Hemoglobin (Bld) [Mass/Vol] 12.5 g/dL (11.9-15.1 ) [facility] Work Phone: Comment on above: Note: Responsible Ob observer helper: XNT AUTOFILE (3019) Lymphocytes (Bld) [#/Vol] 1.97 10*3/uL (1.10-3.70 ) [facility] Work Phone: Comment on above: Note: Responsible Ob observer helper: XNT AUTOFILE (3019) Lymphocytes/100 WBC (Bld) 36 % (24-43) [facility] Work Phone: Comment on above: Note: Responsible Ob observer helper: XNT AUTOFILE (3019) MCH (RBC) [Entitic mass] 31.2 pg (25.2-33.5 ) [facility] Work Phone: Comment on above: Note: Responsible Ob observer helper: XNT AUTOFILE (3019) MCV (RBC) [Entitic vol] 99.5 fL (82. 6-102. 9) [facility] Work Phone: Comment on above: Note: Responsible Ob observer helper: XNT AUTOFILE (3019) Monocytes (Bld) [#/Vol] 0.54 10*3/uL (0.1 0-1.20 ) [facility] Work Phone: Comment on above: Note: Responsible Ob observer helper: XNT AUTOFILE (3019) Monocytes/100 WBC (Bld) 10 % (3-12) [facility] Work Phone: Comment on above: Note: Responsible Ob observer helper: XNT AUTOFILE (9) Platelets (Bld) [#/Vol] NOT REPORTED [facility] Work Phone: Platelets (Bld) [#/Vol] 269 10*3/uL (138-453) [facility] Work Phone: Comment on above: Note: Responsible Ob observer helper: XNT AUTOFILE (3018) RBC (Bld) [#/Vol] 4.01 10*6/uL (3.95-5.11 ) [facility] Work Phone: Comment on above: Note: Responsible Ob observer helper: XNT AUTOFILE (3018) RBC morphology finding Nom (Bld) NOT REPORTED [facility] Work Phone: WBC (Bld) [#/Vol] 0.0 per_100_WBC (0.0) [facility] Work Phone: Comment on above: Note: Responsible Ob observer helper: XNT AUTOFILE (9) WBC (Bld) [#/Vol] 5.5 10*3/uL (3.5-11.3) [facility] Work Phone: Comment on above: Note: Responsible Ob observer helper: XNT AUTOFILE (3019) Metabolic Panelon 11-14-2018 Albumin [Mass/Vol] 4.4 g/dL (3.5-5.2) [facility] Work Phone: Comment on above: Note: Responsible Ob observer helper: CET TWO AUTOFILE (3006) ALT [Catalytic activity/Vol] 18 U/L (5-33) [facility] Work Phone: Comment on above: Note: Responsible Ob observer helper: CET TWO AUTOFILE (3006) Anion gap [Moles/Vol] 9 mmol/L (9-17) [facility] Work Phone: Comment on above: Note: Responsible Ob observer helper: CET TWO AUTOFILE (3006) AST [Catalytic activity/Vol] 15 U/L (<32) [facility] Work Phone: Comment on above: Note: Responsible Ob observer helper: CET TWO AUTOFILE (3006) Bilirubin [Mass/Vol] 0.35 mg/dL (0.3-1.2) [facility] Work Phone: Comment on above: Note: Responsible Ob observer helper: CET TWO AUTOFILE (3006) Calcium [Mass/Vol] 10.8 mg/dL High (8.6-10.4) [facility] Work Phone: Comment on above: Note: Responsible Ob observer helper: CET TWO AUTOFILE (3006) Chloride [Moles/Vol] 109 mmol/L High (98-107) [facility] Work Phone: Comment on above: Note: Responsible Ob observer helper: CET TWO AUTOFILE (3006) CO2 [Moles/Vol] 24 mmol/L (20-31) [facility] Work Phone: Comment on above: Note: Responsible Ob observer helper: CET TWO AUTOFILE (3006) Creatinine [Mass/Vol] 1.07 mg/dL High (0.50- 0.90 ) [facility] Work Phone: Comment on above: Note: Responsible Ob observer helper: CET TWO AUTOFILE (3006) Glucose [Mass/Vol] 101 mg/dL High (70-99) [facility] Work Phone: Comment on above: Note: Responsible Ob observer helper: CET TWO AUTOFILE (3006) Potassium [Moles/Vol] 4.3 mmol/L (3.7-5.3) [facility] Work Phone: Comment on above: Note: Responsible Ob observer helper: CET TWO AUTOFILE (3006) Protein [Mass/Vol] 7.1 g/dL (6.4-8.3) [facility] Work Phone: Comment on above: Note: Responsible Ob observer helper: CET [employer] AUTOFILE (3006) Sodium [Moles/Vol] 142 mmol/L (135-144) [facility] Work Phone: Comment on above: Note: Responsible Ob observer helper: CET TWO AUTOFILE (3006) Urea nitrogen [Mass/Vol] 15 mg/dL (8-23) [facility] Work Phone: Comment on above: Note: Responsible Ob observer helper: CET TWO AUTOFILE (3006) Otheron 11-14-2018 (cont.) See Note [facility] Work Phone: Comment on above: Note: Average GFR fo r 60-69 years old: 85 mL/min/1.73sq mChronic Kidney Disease: <60 mL/min/1.73sq mKidney failure: <15 mL/min/1.73sq m eGFR calculated using average adult body mass. Additional eGFR calculator available at: http://www.[employer]/multiple_crcl_2012.htm Responsible Observer: CET TWO AUTOFILE (3006) Abs. Basophil 0.04 k/uL (0.00-0.20 ) [facility] Work Phone: Comment on above: Note: Responsible Ob observer helper: XNT AUTOFILE (3019) Abs.Imm.Granulocyte <0.03 k/uL (0.00-0. 30 ) [facility] Work Phone: Comment on above: Note: Responsible Ob observer helper: XNT AUTOFILE (3019) Abs.Neutrophil (Seg) 2.77 k/uL (1.50-8 .10 ) [facility] Work Phone: Comment on above: Note: Responsible Ob observer helper: XNT AUTOFILE (3019) Albumin/Glob Ratio 1.6 (1.0-2.5) [facility] Work Phone: Comment on above: Note: Responsible Ob observer helper: CET TWO AUTOFILE (3006) Alkaline Phos 135 U/L High (35-104) [facility] Work Phone: Comment on above: Note: Responsible Ob observer helper: CET TWO AUTOFILE (3006) Auto Diff Performed NOT REPORTED [facility]: BUN/CRE Ratio 14 (9-20) [facility] Work Phone: Comment on above: Note: Responsible Ob observer helper: CET TWO AUTOFILE (3006) Cholesterol,HDL 44 mg/dL (>40) [facility] Work Phone: Comment on above: Note: HDL Guidelines : <40 Undesirable 40-59 Borderline >59 Desirable Responsible Observer: CET TWO AUTOFILE (3006) Cholesterol,LDL 77 mg/dL (0-130) [facility] Work Phone: Comment on above: Note: LDL Guidelines : <100 Desirable 100-129 Near to/above Desirable 130-159 Borderline >159 Undesirable Direct (measured) LDL and calculated LDL are not interchangeable tests.Responsible Observer: CET TWO AUTOFILE (3006) Cholesterol,VLDL NOT REPORTED mg/dL (1-30) [facility] Work Phone: Cholesterol.total/Judy sterol in HDL [Mass ratio] 3.4 {ratio} (<5) [facility] Work Phone: Comment on above: Note: Responsible Ob observer helper: CET TWO AUTOFILE (3006) Erythrocyte distribution width (RBC) [Ratio] 13.2 % (11.8-14.4 ) [facility] Work Phone: Comment on above: Note: Responsible Ob observer helper: XNT AUTOFILE (3019) GFR, Amer >60 mL/min (>60) [facility] Work Phone: Comment on above: Note: Responsible Ob observer helper: CET TWO AUTOFILE (3006) GFR,non Amer 52 mL/min Low (>60) [facility] Work Phone: Comment on above: Note: Responsible Ob observer helper: CET TWO AUTOFILE (3006) Immature granulocytes (Bld) [#/Vol] 0 % (0) [facility] Work Phone: Comment on above: Note: Responsible Ob observer helper: XNT AUTOFILE (3019) MCHC (RBC) [Mass/Vol] 31.3 g/dL (28.4- 34.8 ) [facility] Work Phone: Comment on above: Note: Responsible Ob observer helper: XNT AUTOFILE (3012) Performing Lab: see note [facility] Work Phone: Comment on above: Note: [facility] [address] [place] [id number] Platelet mean volume (Bld) [Entitic vol] 10.8 fL (8.1-13.5) [facility] Work Phone: Comment on above: Note: Responsible Ob observer helper: XNT AUTOFILE ([id number]) Reported Physicians See Note [facility] Work Phone: Comment on above: Note: Reported Physi cians:Ordering: Curtis AimeeAttending: Curtis AimeeReferring: Cotton, Karla Segmented neutrophils/100 WBC (Bld) 50 % (36-65) [facility] Work Phone: Comment on above: Note: Responsible Ob observer helper: XNT AUTOFILE ([id number]) Staging: See Note [facility] Work Phone: Comment on above: Note: Stage 1: Some kidney damage normal GFRStage 2: Mild kidney damage GFR 60-89Stage 3: Moderate kidney damage GFR 30-59Stage 4: Severe kidney damage GFR 15-29Stage 5: Severe kidney damage GFR <15ESRD - chronic treatment by dialysis or transplantResponsible Observer: CET TWO AUTOFILE (3006) Thyroid Stim. Horm. 1.05 mIU/L (0.30-5. 00 ) [facility] Work Phone: Comment on above: Note: Responsible Ob observer helper: CET TWO AUTOFILE (3006) Thyroxine, Free 0.93 ng/dL (0.93-1.70 ) [facility] Work Phone: Comment on above: Note: Responsible Ob observer helper: CET TWO AUTOFILE (3006) WBC Morphology NOT REPORTED [facility] Work Phone: [facility]acon 09-24-2018 Cholesterol [Mass/Vol] 171 mg/dL (<200) [facility] Work Phone: Comment on above: Note: Cholesterol Gu idelines: <200 Desirable 200-240 Borderline >240 Undesirable Responsible Observer: MORRIS LUOISE (MHT) (1932) Triglyceride [Mass/Vol] 400 mg/dL High (<150) [facility] Work Phone: Comment on above: Note: Triglyceride G uidelines: <150 Desirable 150-199 Borderline 200-499 High >499 Very high Based on AHA Guidelines for fasting triglyceride, March 2012. Responsible Observer: MORRIS Boyd (MHT)) Hematologyon 09-24-2018 Basophils/100 WBC (Bld) 1 % (0-2) [facility] Work Phone: Comment on above: Note: Responsible Ob observer helper: XNT AUTOFILE (3019) Eosinophils (Bld) [#/Vol] 0.15 10*3/uL (0.00-0.44 ) [facility] Work Phone: Comment on above: Note: Responsible Ob observer helper: XNT AUTOFILE (3019) Eosinophils/100 WBC (Bld) 2 % (1-4) [facility] Work Phone: Comment on above: Note: Responsible Ob observer helper: XNT AUTOFILE (3019) Hematocrit (Bld) [Volume fraction] 42.8 % (36.3-47.1 ) [facility] Work Phone: Comment on above: Note: Responsible Ob observer helper: XNT AUTOFILE (3019) Hemoglobin (Bld) [Mass/Vol] 13.7 g/dL (11.9-15.1 ) [facility] Work Phone: Comment on above: Note: Responsible Ob observer helper: XNT AUTOFILE (3019) Lymphocytes (Bld) [#/Vol] 1.73 10*3/uL (1.10-3.70 ) [facility] Work Phone: Comment on above: Note: Responsible Ob observer helper: XNT AUTOFILE (3019) Lymphocytes/100 WBC (Bld) 24 % (24-43) [facility] Work Phone: Comment on above: Note: Responsible Ob observer helper: XNT AUTOFILE (3019) MCH (RBC) [Entitic mass] 31.1 pg (25.2-33.5 ) [facility] Work Phone: Comment on above: Note: Responsible Ob observer helper: XNT AUTOFILE (3019) MCV (RBC) [Entitic vol] 97.3 fL (82. 6-102. 9) [facility] Work Phone: Comment on above: Note: Responsible Ob observer helper: XNT AUTOFILE (3019) Monocytes (Bld) [#/Vol] 0.64 10*3/uL (0.1 0-1.20 ) [facility] Work Phone: Comment on above: Note: Responsible Ob observer helper: XNT AUTOFILE (3019) Monocytes/100 WBC (Bld) 9 % (3-12) [facility] Work Phone: Comment on above: Note: Responsible Ob observer helper: XNT AUTOFILE (3019) Platelets (Bld) [#/Vol] NOT REPORTED [facility] Work Phone: Platelets (Bld) [#/Vol] 280 10*3/uL (138-453) [facility] Work Phone: Comment on above: Note: Responsible Ob observer helper: XNT AUTOFILE (3019) RBC (Bld) [#/Vol] 4.40 10*6/uL (3.95-5.11 ) [facility] Work Phone: Comment on above: Note: Responsible Ob observer helper: XNT AUTOFILE (3019) RBC morphology finding Nom (Bld) NOT REPORTED [facility] Work Phone: WBC (Bld) [#/Vol] 7.3 10*3/uL (3.5-11.3) [facility] Work Phone: Comment on above: Note: Responsible Ob observer helper: XNT AUTOFILE (3019) WBC (Bld) [#/Vol] 0.0 per_100_WBC (0.0) [facility] Work Phone: Comment on above: Note: Responsible Ob observer helper: XNT AUTOFILE ([id number]) Metabolic Panelon 09-24-2018 Albumin [Mass/Vol] 4.2 g/dL (3.5-5.2) [facility] Work Phone: Comment on above: Note: Responsible Ob observer helper: MORRIS (ALYSSAT) ASPEN (1932) ALT [Catalytic activity/Vol] 16 U/L (5-33) [facility] Work Phone: Comment on above: Note: Responsible Ob observer helper: MORRIS (ALYSSAT) ASPEN (1932) Anion gap [Moles/Vol] 16 mmol/L [facility] Work Phone: Comment on above: Note: Responsible Ob observer helper: MORRIS (MHT) ASPEN (1932) AST [Catalytic activity/Vol] 14 U/L (<32) [facility] Work Phone: Comment on above: Note: Responsible Ob observer helper: MORRIS (ALYSSAT) ASPEN (1932) Bilirubin [Mass/Vol] mg/dL Low (0.3-1.2) [facility] Work Phone: Comment on above: Note: Responsible Ob observer helper: MORRIS (ALYSSAT) ASPEN (1932) Calcium [Mass/Vol] 11.2 mg/dL High (8.6-10.4) [facility] Work Phone: Comment on above: Note: Responsible Ob observer helper: MORRIS LOUISE (MHT) (1932) Chloride [Moles/Vol] 103 mmol/L (98-107) [facility] Work Phone: Comment on above: Note: UNABLE TO CALC ULATE GAP, SPECIMEN REPEATEDCORRECTED ON 09/24 AT 1740: PREVIOUSLY REPORTED 112Responsible Observer: MORRIS LOUISE (MHT) (1932) CO2 [Moles/Vol] 22 mmol/L (20-31) [facility] Work Phone: Comment on above: Note: UNABLE TO CALC ULATE GAP, SPECIMEN REPEATEDCORRECTED ON 09/24 AT 1740: PREVIOUSLY REPORTED 24Responsible Observer: MORRIS LOUISE (MHT) (1932) Creatinine [Mass/Vol] 0.93 mg/dL High (0.50- 0.90 ) [facility] Work Phone: Comment on above: Note: Responsible Ob observer helper: MORRIS LOUISE (MHT) (1932) Glucose [Mass/Vol] 91 mg/dL (70-99) [facility] Work Phone: Comment on above: Note: Responsible Ob observer helper: MORRIS LOUISE (MHT) (1932) Potassium [Moles/Vol] 4.5 mmol/L (3.7-5.3) [facility] Work Phone: Comment on above: Note: UNABLE TO CALC ULATE GAP, SPECIMEN REPEATEDCORRECTED ON 09/24 AT 1740: PREVIOUSLY REPORTED 4.0Responsible Observer: MORRIS LOUISE (MHT) (1932) Protein [Mass/Vol] 7.0 g/dL (6.4-8.3) [facility] Work Phone: Comment on above: Note: Responsible Ob observer helper: MORRIS LOUISE (MHT) (1932) Sodium [Moles/Vol] 141 mmol/L (135-144) [facility] Work Phone: Comment on above: Note: UNABLE TO CALC ULATE GAP, SPECIMEN REPEATEDCORRECTED ON 09/24 AT 1740: PREVIOUSLY REPORTED 133Responsible Observer: MORRIS LOUISE (MHT) (1932) Urea nitrogen [Mass/Vol] 17 mg/dL (8-23) [facility] Work Phone: Comment on above: Note: Responsible Ob observer helper: MORRIS Gabriel (MHT)) Otheron 09-24-2018 (cont.) See Note [facility] Work Phone: Comment on above: Note: Average GFR fo r 60-69 years old: 85 mL/min/1.73sq mChronic Kidney Disease: <60 mL/min/1.73sq mKidney failure: <15 mL/min/1.73sq m eGFR calculated using average adult body mass. Additional eGFR calculator available at: http://www.[employer]/multiple_crcl_2011.htm Responsible Observer: MORRIS LOUISE (MHT) (1932) Abs. Basophil 0.04 k/uL (0.00-0.20 ) [facility] Work Phone: Comment on above: Note: Responsible Ob observer helper: XNT AUTOFILE (3019) Abs.Imm.Granulocyte 0.03 k/uL (0.00-0. 30 ) [facility] Work Phone: Comment on above: Note: Responsible Ob observer helper: XNT AUTOFILE (3019) Abs.Neutrophil (Seg) 4.73 k/uL (1.50-8 .10 ) [facility] Work Phone: Comment on above: Note: Responsible Ob observer helper: XNT AUTOFILE (3018) Albumin/Glob Ratio 1.5 (1.0-2.5) [facility] Work Phone: Comment on above: Note: Responsible Ob observer helper: MORRIS LOUISE (MHT) (1932) Alkaline Phos 124 U/L High (35-104) [facility] Work Phone: Comment on above: Note: Responsible Ob observer helper: MORRIS LOUISE (MHT) (1932) Auto Diff Performed NOT REPORTED [facility] Work Phone: BUN/CRE Ratio 18 (9-20) [facility] Work Phone: Comment on above: Note: Responsible Ob observer helper: MORRIS LOUISE (MHT) (1932) Cholesterol,HDL 42 mg/dL (>40) [facility] Work Phone: Comment on above: Note: HDL Guidelines : <40 Undesirable 40-59 Borderline >59 Desirable Responsible Observer: MORRIS LOUISE (MHT) (1932) Cholesterol,LDL 49 mg/dL (0-130) [facility] Work Phone: Comment on above: Note: LDL Guidelines : <100 Desirable 100-129 Near to/above Desirable 130-159 Borderline >159 Undesirable Direct (measured) LDL and calculated LDL are not interchangeable tests.Responsible Observer: MORRIS Snyder (MHT)1932) Cholesterol,VLDL NOT REPORTED mg/dL (1-30) [facility] Work Phone: Cholesterol.total/Judy sterol in HDL [Mass ratio] 4.1 {ratio} (<5) [facility] Work Phone: Comment on above: Note: Responsible Ob observer helper: MORRIS LOUISE (MHT) (1932) Erythrocyte distribution width (RBC) [Ratio] 12.7 % (11.8-14.4 ) [facility] Work Phone: Comment on above: Note: Responsible Ob observer helper: XNT AUTOFILE (3019) GFR, Amer >60 mL/min (>60) [facility] Work Phone: Comment on above: Note: Responsible Ob observer helper: MORRIS LOUISE (MHT) (1932) GFR,non Amer >60 mL/min (>60) [facility] Work Phone: Comment on above: Note: Responsible Ob observer helper: MORRIS Snyder (MHT)1932) Immature granulocytes (Bld) [#/Vol] 0 % (0) [facility] Work Phone: Comment on above: Note: Responsible Ob observer helper: XNT AUTOFILE ([id number]) MCHC (RBC) [Mass/Vol] 32.0 g/dL (28.4- 34.8 ) [facility] Work Phone: Comment on above: Note: Responsible Ob observer helper: XNT AUTOFILE ([id number]) Performing Lab: see note [facility] Work Phone: Comment on above: Note: [facility] [address] [address] Platelet mean volume (Bld) [Entitic vol] 11.0 fL (8.1-13.5) [facility] Work Phone: Comment on above: Note: Responsible Ob observer helper: XNT AUTOFILE ([id number]) Reported Physicians See Note [facility] Work Phone: Comment on above: Note: Reported Physi cians:Ordering: Cotton, AimeeAttending: Cotton, AimeeReferring: Cotton, Karla Segmented neutrophils/100 WBC (Bld) 64 % (36-65) [facility] Work Phone: Comment on above: Note: Responsible Ob observer helper: XNT AUTOFILE ([id number]) Staging: See Note [facility] Work Phone: Comment on above: Note: Stage 1: Some kidney damage normal GFRStage 2: Mild kidney damage GFR 60-89Stage 3: Moderate kidney damage GFR 30-59Stage 4: Severe kidney damage GFR 15-29Stage 5: Severe kidney damage GFR <15ESRD - chronic treatment by dialysis or transplantResponsible Observer: MORRIS LOUISE (MHT) (1932) Thyroid Stim. Horm. 1.08 mIU/L (0.30-5. 00 ) [facility] Work Phone: Comment on above: Note: Responsible Ob observer helper: MORRIS LOUISE (MHT) (Padmini) Thyroxine, Free 0.97 ng/dL (0.93-1.70 ) [facility] Work Phone: Comment on above: Note: Responsible Ob observer helper: MORRIS SnyderKINGSBR[facility] JEW[facility] C[facility]ERSid ASPEN (1933) WBC Morphology NOT REPORTED [facility] Work Phone: Hematologyon 07-31-2018 pH (Bld) Negative Normal (5.0/6.0/6 .5/7.0/7.5 /8.0/8.5) [facility] Work Phone: Laboratory - Chemistry and C hemistry - challengeOrdered By: Karla Clark on 07-31-2018 Bilirubin [Mass/Vol] Negative Normal (Neg/Sm all /Moderate/ Large) [facility] Work Phone: Glucose [Mass/Vol] Negative Normal (NEG/100/ 2 50/500/100 or more) [facility] Work Phone: Ketones Ql (U) Negative Normal (Neg/Small /Moderate/ Large) [facility] Work Phone: pH (Bld) Negative Normal (5.0/6.0/6 .5/7.0/7.5 /8.0/8.5) [facility] Work Phone: Protein [Mass/Vol] Negative Normal (Neg/Trac e /30/100/30 or more) [facility] Work Phone: Urobilinogen (U) [Mass/Vol] Negative Normal (t) [facility] Work Phone: Specific gravity (U) [Rel density] 1.000 Normal (1.000/1.0 05/1.101/1 .015/1.020 /1.025/1.0 30) [facility] Work Phone: Laboratory - UrinalysisOrder ed By: Karla Clark on 07-31-2018 Nitrite Ql (U) Negative Normal (Neg/Pos) [facility] Work Phone: Metabolic Panelon 07-31-2018 Bilirubin [Mass/Vol] Negative Normal (Neg/Sm all /Moderate/ Large) [facility] Work Phone: Glucose [Mass/Vol] Negative Normal (NEG/100/ 2 50/500/100 or more) [facility] Work Phone: Protein [Mass/Vol] Negative Normal (Neg/Trac e /30/100/30 or more) [facility] Work Phone: No Panel InformationOrdered By: Karla Clark on 07-31-2018 Blood Negative Normal (Neg/NH-Tr pedro/NH-Mod erate/H-Tr pedro/H-smal l/H-Modera t) [facility] Work Phone: All Values Normal abnormal Abnormal (NORMAL) [facility] Work Phone: Leukocyates trace Abnormal (Neg/Trace /Small/Mod erate/Larg e) [facility] Work Phone: Otheron 07-31-2018 Blood Negative Normal (Neg/NH-Tr pedro/NH-Mod erate/H-Tr pedro/H-smal l/H-Modera t) [facility] Work Phone: Nitrite Ql (U) Negative Normal (Neg/Pos) [facility] Work Phone: Urobilinogen Qn (U) Negative Normal (t) [facility] Work Phone: Urinalysison 07-31-2018 Ketones Ql (U) Negative Normal (Neg/Small /Moderate/ Large) [facility] Work Phone: Cardiacon 09-26-2017 Cholesterol mass conc 195 mg/dL Invalid Interpretation Code <200 [facility] Cholesterol mass conc 195 mg/dL Invalid Interpretation Code <200 [facility] Hematologyon 09-26-2017 Basophils Auto #/vol (Bld) 0.070 10*3/uL Invalid Interpretation Code 0.00-0.20 [facility] Basophils/100 WBC Auto (Bld) 1 % Invalid Interpretation Code 0-2 [facility] Eosinophils Auto #/vol (Bld) 2 10*3/uL Invalid Interpretation Code 1-4 [facility] Eosinophils Auto #/vol (Bld) 0.140 10*3/uL Invalid Interpretation Code 0.00-0.44 [facility] Erythrocyte distribution width Auto Ratio (RBC) 13.2 % Invalid Interpretation Code 11.8-14.4 [facility] Hematocrit Auto Volume Fraction (Bld) 44.2 % Invalid Interpretation Code 36.3-47.1 [facility] Hemoglobin mass conc (Bld) 13.5 g/dL Invalid Interpretation Code 11.9-15.1 [facility] Lymphocytes Auto #/vol (Bld) 31 10*3/uL Invalid Interpretation Code 24-43 [facility] Lymphocytes Auto #/vol (Bld) 2.240 10*3/uL Invalid Interpretation Code 1.10-3.70 [facility] MCH Auto Entitic mass (RBC) 31.0 pg Invalid Interpretation Code 25.2-33.5 [facility] MCHC Auto mass conc (RBC) 30.5 g/dL Invalid Interpretation Code 28.4-34.8 [facility] MCV Auto Entitic volume (RBC) 101.4 fL Invalid Interpretation Code 82.6-102.9 [facility] Monocytes Auto #/vol (Bld) 9 10*3/uL Invalid Interpretation Code 3-12 [facility] Monocytes Auto #/vol (Bld) 0.640 10*3/uL Invalid Interpretation Code 0.10-1.20 [facility] Neutrophils Auto #/vol (Bld) 4.10 10*3/uL Invalid Interpretation Code 1.50-8.10 [facility] Platelet mean volume Auto Entitic volume (Bld) 11.7 fL Invalid Interpretation Code 8.1-13.5 [facility] RBC Auto #/vol (Bld) 4.36 10*6/uL Invalid Interpretation Code 3.95-5.11 [facility] WBC Auto #/vol (Bld) 7.2 10*3/uL Invalid Interpretation Code 3.5-11.3 [facility] Basophils Auto #/vol (Bld) 0.070 10*3/uL Invalid Interpretation Code 0.00-0.20 [facility] [employer] Basophils/100 WBC (Bld) 1 % 0-2 [facility] Basophils/100 WBC Auto (Bld) 1 % Invalid Interpretation Code 0-2 [facility] [employer] Eosinophils 0.14 10*3/uL Invalid Interpretation Code 0.00-0.44 [facility] Eosinophils 2 10*3/uL Invalid Interpretation Code 1-4 [facility] [employer] Eosinophils #/vol (Bld) 0.14 10*3/uL 0.00-0.44 [facility] Eosinophils #/vol (Bld) 2 10*3/uL 1-4 [facility] Eosinophils Auto #/vol (Bld) 0.140 10*3/uL Invalid Interpretation Code 0.00-0.44 [facility] [employer] Erythrocyte distribution width Auto Ratio (RBC) 13.2 % Invalid Interpretation Code 11.8-14.4 [facility] Erythrocytes (RBC) 4.36 10*6/uL Invalid Interpretation Code 3.95-5.11 [facility] Erythrocytes (RBC) NOT REPORTED Invalid Interpretation Code [facility] Erythrocytes (RBC) 0.0 10*6/uL Invalid Interpretation Code 0.0 [facility] Hematocrit (HCT) 44.2 % Invalid Interpretation Code 36.3-47.1 [facility] Hematocrit Volume Fraction (Bld) 44.2 % 36.3-47.1 [facility] Hemoglobin mass conc (Bld) 13.5 g/dL Invalid Interpretation Code 11.9-15.1 [facility] Lymphocytes 2.24 10*3/uL Invalid Interpretation Code 1.10-3.70 [facility] Lymphocytes 31 10*3/uL Invalid Interpretation Code 24-43 [facility] Lymphocytes #/vol (Bld) 31 10*3/uL 24-43 [facility] Lymphocytes #/vol (Bld) 2.24 10*3/uL 1.10-3.70 [facility] Lymphocytes Auto #/vol (Bld) 2.240 10*3/uL Invalid Interpretation Code 1.10-3.70 [facility] MCH 31.0 pg Invalid Interpretation Code 25.2-33.5 [facility] MCH Entitic mass (RBC) 31.0 pg 25.2-33.5 [facility] MCHC mass conc (RBC) 30.5 g/dL Invalid Interpretation Code 28.4-34.8 [facility] MCV 101.4 fL Invalid Interpretation Code 82.6-102.9 [facility] MCV Entitic volume (RBC) 101.4 fL 82.6-102.9 [facility] Monocytes 0.64 10*3/uL Invalid Interpretation Code 0.10-1.20 [facility] Monocytes 9 10*3/uL Invalid Interpretation Code 3-12 [facility] Monocytes #/vol (Bld) 0.64 10*3/uL 0.10-1.20 [facility] Monocytes #/vol (Bld) 9 10*3/uL 3-12 [facility] Monocytes Auto #/vol (Bld) 0.640 10*3/uL Invalid Interpretation Code 0.10-1.20 [facility] Neutrophils Auto #/vol (Bld) 4.10 10*3/uL Invalid Interpretation Code 1.50-8.10 [facility] Platelet mean volume (PMV) 11.7 fL Invalid Interpretation Code 8.1-13.5 [facility] RBC #/vol (Bld) 4.36 10*6/uL 3.95-5.11 [facility] WBC #/vol (Bld) 7.2 10*3/uL 3.5-11.3 [facility] WBC (Leukocytes) 7.2 10*3/uL Invalid Interpretation Code 3.5-11.3 [facility] Metabolic Panelon 09-26-2017 Albumin mass conc 4.1 g/dL Invalid Interpretation Code 3.5-5.2 [facility] ALT enzyme act/vol 28 U/L Invalid Interpretation Code 5-33 [facility] Anion gap 3 molar conc 9 mmol/L Invalid Interpretation Code 9-17 [facility] AST enzyme act/vol 19 U/L Invalid Interpretation Code <32 [facility] Bilirubin mass conc 0.250 mg/dL Invalid Interpretation Code 0.3-1.2 [facility] Calcium mass conc 10.80 mg/dL Invalid Interpretation Code 8.6-10.4 [facility] Chloride molar conc 103 mmol/L Invalid Interpretation Code 98-107 [facility] CO2 molar conc 27 mmol/L Invalid Interpretation Code 20-31 [facility] Creatinine mass conc 0.83 mg/dL Invalid Interpretation Code 0.50-0.90 [facility] Glucose mass conc 95 mg/dL Invalid Interpretation Code 70-99 [facility] Potassium molar conc 4.8 mmol/L Invalid Interpretation Code 3.7-5.3 [facility] Protein mass conc 7.0 g/dL Invalid Interpretation Code 6.4-8.3 [facility] Sodium molar conc 139 mmol/L Invalid Interpretation Code 135-144 [facility] Urea nitrogen mass conc 22.0 mg/dL Invalid Interpretation Code 8-23 [facility] Albumin mass conc 4.1 g/dL Invalid Interpretation Code 3.5-5.2 [facility] ALT enzyme act/vol 28 U/L Invalid Interpretation Code 5-33 [facility] Anion gap 9 mmol/L Invalid Interpretation Code 9-17 [facility] Anion gap molar conc 9 mmol/L 9-17 [facility] AST enzyme act/vol 19 U/L Invalid Interpretation Code <32 [facility] Bilirubin mass conc 0.25 mg/dL Invalid Interpretation Code 0.3-1.2 [facility] Bilirubin mass conc 0.250 mg/dL Invalid Interpretation Code 0.3-1.2 [facility] BUN (urea nitrogen) 22 mg/dL Invalid Interpretation Code 8-23 [facility] Calcium mass conc 10.8 mg/dL Invalid Interpretation Code 8.6-10.4 [facility] Calcium mass conc 10.80 mg/dL Invalid Interpretation Code 8.6-10.4 [facility] Chloride molar conc 103 mmol/L Invalid Interpretation Code 98-107 [facility] CO2 27 mmol/L Invalid Interpretation Code 20-31 [facility] Creatinine mass conc 0.83 mg/dL Invalid Interpretation Code 0.50-0.90 [facility] eGFR (non-black) mL/min/{1.73_m2} Invalid Interpretation Code >60 [facility] Glucose mass conc 95 mg/dL Invalid Interpretation Code 70-99 [facility] Potassium molar conc 4.8 mmol/L Invalid Interpretation Code 3.7-5.3 [facility] Protein mass conc 7.0 g/dL Invalid Interpretation Code 6.4-8.3 [facility] Sodium molar conc 139 mmol/L Invalid Interpretation Code 135-144 [facility] Urea nitrogen mass conc 22.0 mg/dL Invalid Interpretation Code 8-23 [facility] Urea nitrogen mass conc 22 mg/dL 8-23 [facility] Cholesterol.total/Judy sterol in HDL mass ratio 3.7 {ratio} Invalid Interpretation Code <5 [facility] Immature granulocytes #/vol (Bld) 0 10*3/uL Invalid Interpretation Code 0 [facility] Urea nitrogen/Creatinine mass ratio (Bld) 27 Invalid Interpretation Code 9-20 [facility] NOT REPORTED Invalid Interpretation Code [facility] 205 Invalid Interpretation Code <150 [facility] 101 Invalid Interpretation Code 0-130 [facility] 53 Invalid Interpretation Code >40 [facility] 57 Invalid Interpretation Code 36-65 [facility] 0.0 Invalid Interpretation Code 0.0 [facility] 0.96 Invalid Interpretation Code 0.93-1.70 [facility] 226 Invalid Interpretation Code 138-453 [facility] >60 Invalid Interpretation Code >60 [facility] <0.03 Invalid Interpretation Code 0.00-0.30 [facility] 1.4 Invalid Interpretation Code 1.0-2.5 [facility] 140 Invalid Interpretation Code 35-104 [facility] 1.06 Invalid Interpretation Code 0.30-5.00 [facility] Cholesterol.total/Judy sterol in HDL mass ratio 3.7 {ratio} Invalid Interpretation Code <5 [facility] Erythrocyte distribution width Ratio (RBC) 13.2 % 11.8-14.4 [facility] Granulocytes/100 WBC (Bld) % Invalid Interpretation Code 0.00-0.30 [facility] Immature granulocytes #/vol (Bld) 0 10*3/uL Invalid Interpretation Code 0 [facility] MCHC mass conc (RBC) 30.5 g/dL 28.4-34.8 [facility] Platelet mean volume Entitic volume (Bld) 11.7 fL 8.1-13.5 [facility] Urea nitrogen/Creatinine mass ratio (Bld) 27 Invalid Interpretation Code 9-20 [facility] NOT REPORTED Invalid Interpretation Code [facility] 4.10 Invalid Interpretation Code 1.50-8.10 [facility] 205 Invalid Interpretation Code <150 [facility] 53 Invalid Interpretation Code >40 [facility] 1.06 Invalid Interpretation Code 0.30-5.00 [facility] 57 Invalid Interpretation Code 36-65 [facility] 0.96 Invalid Interpretation Code 0.93-1.70 [facility] 27 Invalid Interpretation Code 9-20 [facility] 226 Invalid Interpretation Code 138-453 [facility] 0.07 Invalid Interpretation Code 0.00-0.20 [facility] 1.4 Invalid Interpretation Code 1.0-2.5 [facility] 140 Invalid Interpretation Code 35-104 [facility] 101 Invalid Interpretation Code 0-130 [facility] 7.0 Invalid Interpretation Code 6.4-8.3 [facility] 28 Invalid Interpretation Code 5-33 [facility] 19 Invalid Interpretation Code <32 [facility] 0.0 Invalid Interpretation Code 0.0 [facility] >60 Invalid Interpretation Code >60 [facility] <0.03 Invalid Interpretation Code 0.00-0.30 [facility] Otheron 09-17-2017 S. pyogenes Ag IA Ql (Unsp spec) Negative Invalid Interpretation Code [facility] S. pyogenes Ag IA Ql (Unsp spec) Negative Invalid Interpretation Code [facility] Otheron 05-14-2017 2 Invalid Interpretation Code [facility] 2 Invalid Interpretation Code [facility] Metabolic Panelon 04-18-2017 Hemoglobin A1c/Hemoglobin.total mass fraction (Bld) 5.0 % Invalid Interpretation Code < 7 [facility] Hemoglobin A1c/Hemoglobin.total mass fraction (Bld) 5.0 % Invalid Interpretation Code < 7 [facility] Otheron 01-01-2017 Negative Invalid Interpretation Code [facility] 0=No Invalid Interpretation Code [facility] 4 Invalid Interpretation Code [facility] Risk Level 2= 4-6 Invalid Interpretation Code [facility] 0= N/A Invalid Interpretation Code [facility] 0-N/A Invalid Interpretation Code [facility] 1=Controlled Invalid Interpretation Code [facility] 1=Yes Invalid Interpretation Code [facility] 0 Invalid Interpretation Code [facility] Negative Invalid Interpretation Code [facility] 0 Invalid Interpretation Code [facility] 0=No Invalid Interpretation Code [facility] 4 Invalid Interpretation Code [facility] Risk Level 2= 4-6 Invalid Interpretation Code [facility] 0= N/A Invalid Interpretation Code [facility] 0-N/A Invalid Interpretation Code [facility] 1=Controlled Invalid Interpretation Code [facility] 1=Yes Invalid Interpretation Code [facility] Otheron 12-06-2016 Negative Invalid Interpretation Code [facility] Negative Invalid Interpretation Code [facility] Otheron 11-06-2016 Urinalysis specialist review [employer] (Unsp spec) mod leuk, wnl Invalid Interpretation Code [facility] Urinalysis specialist review [employer] (Unsp spec) mod leuk, wnl Invalid Interpretation Code [facility] Otheron 08-21-2016 Not ready Invalid Interpretation Code [facility] No Invalid Interpretation Code [facility] Contemplation Invalid Interpretation Code [facility] Benefits of quitting Invalid Interpretation Code [facility] 10.0 Count Invalid Interpretation Code [facility] 7 Invalid Interpretation Code [facility] Charly Invalid Interpretation Code [facility] Current Invalid Interpretation Code [facility] Not ready Invalid Interpretation Code [facility] No Invalid Interpretation Code [facility] Contemplation Invalid Interpretation Code [facility] Benefits of quitting Invalid Interpretation Code [facility] 10.0 Count Invalid Interpretation Code [facility] 7 Invalid Interpretation Code [facility] Charly Invalid Interpretation Code [facility] Current Invalid Interpretation Code [facility] Metabolic Panelon 06-12-2016 Protein mass conc Provide self-help materials Invalid Interpretation Code [facility] Protein Provide self-help materials Invalid Interpretation Code [facility] Otheron 06-12-2016 Yes Invalid Interpretation Code [facility] Contemplation Invalid Interpretation Code [facility] Strong advice to quit Invalid Interpretation Code [facility] Woman Invalid Interpretation Code [facility] 10.0 Count Invalid Interpretation Code [facility] 7 Invalid Interpretation Code [facility] charly north Invalid Interpretation Code [facility] Current Invalid Interpretation Code [facility] Provide self-help materials Invalid Interpretation Code [facility] Yes Invalid Interpretation Code [facility] Contemplation Invalid Interpretation Code [facility] Strong advice to quit Invalid Interpretation Code [facility] Woman Invalid Interpretation Code [facility] 10.0 Count Invalid Interpretation Code [facility] 7 Invalid Interpretation Code [facility] charly north Invalid Interpretation Code [facility] Current Invalid Interpretation Code [facility] Otheron 04-10-2016 Pre-contemplation Invalid Interpretation Code [facility] Not Ready Invalid Interpretation Code [facility] Benefits of quitting Invalid Interpretation Code [facility] No Invalid Interpretation Code [facility] Woman Invalid Interpretation Code [facility] 10.0 Count Invalid Interpretation Code [facility] 7 Invalid Interpretation Code [facility] Current Invalid Interpretation Code [facility] Charly Invalid Interpretation Code [facility] Not Ready Invalid Interpretation Code [facility] Pre-contemplation Invalid Interpretation Code [facility] No Invalid Interpretation Code [facility] Benefits of quitting Invalid Interpretation Code [facility] Woman Invalid Interpretation Code [facility] 10.0 Count Invalid Interpretation Code [facility] 7 Invalid Interpretation Code [facility] Current Invalid Interpretation Code [facility] Charly Invalid Interpretation Code [facility] Otheron 03-20-2016 10.0 Count Invalid Interpretation Code [facility] Woman Invalid Interpretation Code [facility] Not Ready Invalid Interpretation Code [facility] No Invalid Interpretation Code [facility] Contemplation Invalid Interpretation Code [facility] Current Invalid Interpretation Code [facility] Charly Purnima Invalid Interpretation Code [facility] 7 Invalid Interpretation Code [facility] Benefits of quitting Invalid Interpretation Code [facility] 10.0 Count Invalid Interpretation Code [facility] Woman Invalid Interpretation Code [facility] Not Ready Invalid Interpretation Code [facility] No Invalid Interpretation Code [facility] Contemplation Invalid Interpretation Code [facility] Current Invalid Interpretation Code [facility] Charly Purnima Invalid Interpretation Code [facility] 7 Invalid Interpretation Code [facility] Benefits of quitting Invalid Interpretation Code [facility] Otheron 12-08-2015 Urinalysis specialist review [employer] (Unsp spec) WNL Lg Justina Invalid Interpretation Code [facility] Urinalysis specialist review [employer] (Unsp spec) WNL Lg Justina Invalid Interpretation Code [facility] Otheron 09-09-2015 Negative Invalid Interpretation Code NEGATIVE [facility] Negative Invalid Interpretation Code NEGATIVE [facility] Otheron 09-08-2015 290 Invalid Interpretation Code [facility] 280 Invalid Interpretation Code [facility] Negative Invalid Interpretation Code [facility] 290 Invalid Interpretation Code [facility] 280 Invalid Interpretation Code [facility] Negative Invalid Interpretation Code [facility] Vital Signs Date Time Vital Sign Value Performing Clinician Facility 12-17-2024 08:48-0400 Body height 160 cm Héctor Turner MD Work Phone: [employer] 12-17-2024 08:48-0400 Body mass index (BMI) [Ratio] 25.87 kg/m2 Héctor Turner MD Work Phone: [employer] 12-17-2024 08:48-0400 Body weight 66.22 kg Héctor Turner MD Work Phone: [employer] 12-17-2024 08:48-0400 Diastolic blood pressure 70 mm[Hg] Héctor Turner MD Work Phone: [employer] 12-17-2024 08:48-0400 Systolic blood pressure 121 mm[Hg] Héctor Turner MD Work Phone: [employer] 04-23-2024 21:19-0500 Body temperature 97.9 [degF] Sami Jasso MD Work Phone: [employer] 04-23-2024 21:19-0500 Diastolic blood pressure 77 mm[Hg] Sami Jasso MD Work Phone: [employer] 04-23-2024 21:19-0500 Heart rate 60 /min Sami Jasso MD Work Phone: [employer] 04-23-2024 21:19-0500 Respiratory rate 16 /min Sami Jasso MD Work Phone: [employer] 04-23-2024 21:19-0500 SaO2% (BldA) [Mass fraction] 98 % Sami Jasso MD Work Phone: [employer] 04-23-2024 21:19-0500 Systolic blood pressure 144 mm[Hg] Sami Jasso MD Work Phone: [employer] 04-23-2024 17:08-0500 Heart rate 58 /min [facility] 04-23-2024 17:08-0500 Respiratory rate 16 /min Alberta Medeiros MD Work Phone: [facility] [employer] 04-23-2024 15:15-0500 Diastolic blood pressure 79 mm[Hg] Alberta Medeiros MD Work Phone: [facility] [employer] 04-23-2024 15:15-0500 Systolic blood pressure 156 mm[Hg] Alberta Medeiros MD Work Phone: [facility] [employer] 04-23-2024 14:20-0500 SaO2% (BldA) [Mass fraction] 100 % Alberta Medeiros MD Work Phone: [facility] 04-23-2024 13:42-0500 Body mass index (BMI) [Ratio] 26.57 kg/m2 Alberta Medeiros MD Work Phone: [facility] [employer] 04-23-2024 13:42-0500 Body temperature 97.9 [degF] Alberta Medeiros MD Work Phone: [facility] 04-23-2024 13:42-0500 Body weight 68.04 kg Alberta Medeiros MD Work Phone: [facility] 02-18-2024 15:05-0400 Body height 161.3 cm Lucy Gilbert DO Work Phone: [facility] 02-18-2024 15:05-0400 Body mass index (BMI) [Ratio] 26.15 kg/m2 Christopherin Gilbert DO Work Phone: [facility] 02-18-2024 15:05-0400 Body weight 68.04 kg Javieropherin Gilbert DO Work Phone: [facility] 02-18-2024 15:05-0400 Diastolic blood pressure 88 mm[Hg] Peymaner Ofelia DO Work Phone: [facility] 02-18-2024 15:05-0400 Systolic blood pressure 138 mm[Hg] Lucy Gilbert DO Work Phone: [facility] 01-27-2024 08:41-0400 Body height 162.56 cm Karla Clark CNP Work Phone: [facility] Work Phone: 01-27-2024 08:41-0400 Body mass index (BMI) [Ratio] 25.6 kg/m2 Karla Clark CNP Work Phone: [facility] Work Phone: 01-27-2024 08:41-0400 Body surface area Derived from formula 1.7 m2 Karla Clark CNP Work Phone: [facility] Work Phone: 01-27-2024 08:41-0400 Body weight 67.59 kg Karla Clark CNP Work Phone: [facility] Work Phone: 01-27-2024 08:41-0400 Diastolic blood pressure 78 mm[Hg] Karal Clark CNP Work Phone: [facility] Work Phone: 01-27-2024 08:41-0400 Heart rate 76 /min Karla Clark CNP Work Phone: [facility] Work Phone: 01-27-2024 08:41-0400 SaO2% (BldA) [Mass fraction] 97 % Karla Clark CNP Work Phone: [facility] Work Phone: 01-27-2024 08:41-0400 Systolic blood pressure 134 mm[Hg] Karla Clark CNP Work Phone: [facility] Work Phone: 12-24-2023 15:30-0400 Body temperature 97.7 [degF] PALLIATIVE NURSE Karla Clark Work Phone: [facility] 12-24-2023 15:30-0400 Diastolic blood pressure 81 mm[Hg] PALLIATIVE NURSE Karla Amber Work Phone: [facility] 12-24-2023 15:30-0400 Heart rate 68 /min PALLIATIVE NURSE Karla Amber Work Phone: [facility] 12-24-2023 15:30-0400 Respiratory rate 16 /min PALLIATIVE NURSE Karla Amber Work Phone: [facility] 12-24-2023 15:30-0400 SaO2% (BldA) [Mass fraction] 97 % PALLIATIVE NURSE Karlajulius Floresen Work Phone: [facility] 12-24-2023 15:30-0400 Systolic blood pressure 121 mm[Hg] PALLIATIVE NURSE Karla Amber Work Phone: [facility] 12-23-2023 14:14-0400 Body height 160.02 cm PALLIATIVE NURSE Karla Amber Work Phone: [facility] 12-23-2023 08:54-0400 Body weight 67.05 kg PALLIATIVE NURSE Karla Amber Work Phone: [facility] 12-16-2023 13:02-0400 Body height 160.02 cm PALLIATIVE NURSE Karla Amber Work Phone: [facility] 12-16-2023 13:02-0400 Body temperature 98 [degF] PALLIATIVE NURSE Karla Amber Work Phone: [facility] 12-16-2023 13:02-0400 Body weight 63.5 kg PALLIATIVE NURSE Karla Amber Work Phone: [facility] 12-16-2023 13:02-0400 Diastolic blood pressure 75 mm[Hg] PALLIATIVE NURSE Karla Amber Work Phone: [facility] 12-16-2023 13:02-0400 Heart rate 74 /min PALLIATIVE NURSE Karla Amber Work Phone: [facility] 12-16-2023 13:02-0400 Respiratory rate 16 /min PALLIATIVE NURSE Karla Clark Work Phone: [facility] 12-16-2023 13:02-0400 SaO2% (BldA) [Mass fraction] 100 % PALLIATIVE NURSE Karla Clark Work Phone: [facility] 12-16-2023 13:02-0400 Systolic blood pressure 127 mm[Hg] PALLIATIVE NURSE Karla Clark Work Phone: [facility] 10-04-2023 14:17-0400 Diastolic blood pressure 88 mm[Hg] Karla Clark CNP Work Phone: [facility] Comment on above: manual cuff 10-04-2023 14:17-0400 Systolic blood pressure 134 mm[Hg] Karla Clark CNP Work Phone: [facility] Comment on above: manual cuff 10-04-2023 13:33-0400 Diastolic blood pressure 93 mm[Hg] Karla Clark CNP Work Phone: [facility] Work Phone: 10-04-2023 13:33-0400 Systolic blood pressure 148 mm[Hg] Karla Clark CNP Work Phone: [facility] Work Phone: 10-04-2023 13:22-0400 Body height 162.56 cm Karla Clark CNP Work Phone: [facility] Work Phone: 10-04-2023 13:22-0400 Body mass index (BMI) [Ratio] 25.2 kg/m2 Karla Clark CNP Work Phone: [facility] Work Phone: 10-04-2023 13:22-0400 Body surface area Derived from formula 1.7 m2 Karla Clark CNP Work Phone: [facility] Work Phone: 10-04-2023 13:22-0400 Body weight 66.68 kg Karla Clark CNP Work Phone: [facility] Work Phone: 10-04-2023 13:22-0400 Diastolic blood pressure 88 mm[Hg] Karla Clark CNP Work Phone: [facility] Work Phone: 10-04-2023 13:22-0400 Heart rate 77 /min Karla Clark CNP Work Phone: [facility] Work Phone: 10-04-2023 13:22-0400 SaO2% (BldA) [Mass fraction] 98 % Karla Clark CNP Work Phone: [facility] Work Phone: 10-04-2023 13:22-0400 Systolic blood pressure 142 mm[Hg] Karla Clark CNP Work Phone: [facility] Work Phone: 08-20-2023 16:49-0400 Diastolic blood pressure 73 mm[Hg] [facility] 08-20-2023 16:49-0400 Heart rate 69 /min [facility] 08-20-2023 16:49-0400 Respiratory rate 69 /min [facility] 08-20-2023 16:49-0400 SaO2% (BldA) [Mass fraction] 98 % [facility] 08-20-2023 16:49-0400 Systolic blood pressure 135 mm[Hg] [facility] 08-20-2023 15:57-0400 Body temperature 97.7 [degF] [facility] 08-20-2023 15:22-0400 Inhaled oxygen flow rate 8 L/min [facility] 08-20-2023 14:26-0400 Body height 161.29 cm [facility] 08-20-2023 14:26-0400 Body mass index (BMI) [Ratio] 25.4 kg/m2 [facility] 08-20-2023 14:26-0400 Body weight 66.22 kg [facility] 08-20-2023 10:56-0400 Body weight 67.1 kg [facility] 08-20-2023 07:30-0400 Body temperature 97.4 [degF] [facility] 08-20-2023 07:30-0400 Diastolic blood pressure 87 mm[Hg] [facility] 08-20-2023 07:30-0400 Heart rate 67 /min [facility] 08-20-2023 07:30-0400 Respiratory rate 18 /min [facility] 08-20-2023 07:30-0400 SaO2% (BldA) [Mass fraction] 99 % [facility] 08-20-2023 07:30-0400 Systolic blood pressure 143 mm[Hg] [facility] 08-19-2023 09:00-0400 Body weight 67.1 kg [facility] 08-16-2023 14:21-0400 Body height 161.29 cm [facility] 08-15-2023 19:27-0400 Body temperature 97.2 [degF] [facility] 08-15-2023 19:27-0400 Diastolic blood pressure 63 mm[Hg] [facility] 08-15-2023 19:27-0400 Heart rate 71 /min [facility] 08-15-2023 19:27-0400 Respiratory rate 20 /min [facility] 08-15-2023 19:27-0400 SaO2% (BldA) [Mass fraction] 99 % [facility] 08-15-2023 19:27-0400 Systolic blood pressure 133 mm[Hg] [facility] 08-15-2023 15:10-0400 Body height 160.02 cm [facility] 08-15-2023 15:10-0400 Body weight 66.67 kg [facility] 05-22-2023 10:50-0500 Body height 162.56 cm Karla Clark CNP Work Phone: [facility] 05-22-2023 10:50-0500 Body mass index (BMI) [Ratio] 24.8 kg/m2 Karla Clark CNP Work Phone: [facility] 05-22-2023 10:50-0500 Body surface area Derived from formula 1.7 m2 Karla Clark CNP Work Phone: [facility] 05-22-2023 10:50-0500 Body weight 65.59 kg Karla Clark CNP Work Phone: [facility] 05-22-2023 10:50-0500 Diastolic blood pressure 89 mm[Hg] Karla Clark CNP Work Phone: [facility] 05-22-2023 10:50-0500 Heart rate 75 /min Karla Clark CNP Work Phone: [facility] 05-22-2023 10:50-0500 SaO2% (BldA) [Mass fraction] 95 % Karla Clark CNP Work Phone: [facility] 05-22-2023 10:50-0500 Systolic blood pressure 138 mm[Hg] Karla Clark CNP Work Phone: [facility] 03-28-2023 07:30-0400 Body temperature 97.9 [degF] PALLIATIVE NURSE Karla Clakr Work Phone: [facility] 03-28-2023 07:30-0400 Diastolic blood pressure 71 mm[Hg] PALLIATIVE NURSE Karla Clark Work Phone: [facility] 03-28-2023 07:30-0400 Heart rate 95 /min PALLIATIVE NURSE Karla Clark Work Phone: [facility] 03-28-2023 07:30-0400 Respiratory rate 18 /min PALLIATIVE NURSE Karla Amber Work Phone: [facility] 03-28-2023 07:30-0400 SaO2% (BldA) [Mass fraction] 95 % PALLIATIVE NURSE Karla Amber Work Phone: [facility] 03-28-2023 07:30-0400 Systolic blood pressure 121 mm[Hg] PALLIATIVE NURSE Karla Clark Work Phone: [facility] 03-27-2023 11:00-0400 Body height 160.02 cm PALLIATIVE NURSE Karla Clark Work Phone: [facility] 03-26-2023 00:59-0400 Body weight 63.5 kg PALLIATIVE NURSE Karla Clark Work Phone: [facility] 03-15-2023 07:30-0400 Body temperature 97.9 [degF] PALLIATIVE NURSE Karla Clark Work Phone: [facility] 03-15-2023 07:30-0400 Diastolic blood pressure 72 mm[Hg] PALLIATIVE NURSE Karla Clark Work Phone: [facility] 03-15-2023 07:30-0400 Heart rate 68 /min PALLIATIVE NURSE Karla Amber Work Phone: [facility] 03-15-2023 07:30-0400 Respiratory rate 16 /min PALLIATIVE NURSE Karla Clark Work Phone: [facility] 03-15-2023 07:30-0400 SaO2% (BldA) [Mass fraction] 100 % PALLIATIVE NURSE Karla Clark Work Phone: [facility] 03-15-2023 07:30-0400 Systolic blood pressure 136 mm[Hg] PALLIATIVE NURSE Karla Amber Work Phone: [facility] 03-12-2023 14:52-0400 Body height 160.02 cm PALLIATIVE NURSE Karla Clark Work Phone: [facility] 03-12-2023 00:34-0400 Body weight 63.5 kg PALLIATIVE NURSE Karlajulius Clark Work Phone: [facility] 02-28-2023 09:35-0400 Body height 162.56 cm 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: [facility] 02-28-2023 09:35-0400 Body mass index (BMI) [Ratio] 24 kg/m2 Karla Clark CNP Work Phone: [facility] 02-28-2023 09:35-0400 Body surface area Derived from formula 1.7 m2 Karla Clark CNP Work Phone: [facility] 02-28-2023 09:35-0400 Body weight 63.41 kg Karla Clark CNP Work Phone: [facility] 02-28-2023 09:35-0400 Diastolic blood pressure 76 mm[Hg] Karla Clark CNP Work Phone: [facility] 02-28-2023 09:35-0400 Heart rate 83 /min Karla Clark CNP Work Phone: [facility] 02-28-2023 09:35-0400 SaO2% (BldA) [Mass fraction] 94 % Karla Clark CNP Work Phone: [facility] 02-28-2023 09:35-0400 Systolic blood pressure 111 mm[Hg] Karla Clark CNP Work Phone: [facility] 12-12-2022 13:45-0400 Body height Emory Wendi Other [employer] [facility] [employer] Other 12-12-2022 13:45-0400 Body mass index (BMI) [Ratio] 25.6 kg/m2 Emory Adame Other [employer] Other 12-12-2022 13:45-0400 Body weight 63.5 kg Emory Adame Other [employer] Other 11-19-2022 09:15-0400 Body height 162.56 cm Karla Clark CNP Work Phone: [facility] 11-19-2022 09:15-0400 Body mass index (BMI) [Ratio] 23.6 kg/m2 Karla Clark CNP Work Phone: [facility] 11-19-2022 09:15-0400 Body surface area Derived from formula 1.7 m2 Karla Clark CNP Work Phone: [facility] 11-19-2022 09:15-0400 Body temperature 97.6 [degF] Karla Clark CNP Work Phone: [facility] 11-19-2022 09:15-0400 Body weight 62.32 kg Karla Clark CNP Work Phone: [facility] 11-19-2022 09:15-0400 Diastolic blood pressure 60 mm[Hg] Karla Clark CNP Work Phone: [facility] 11-19-2022 09:15-0400 Heart rate 94 /min Karla Clark CNP Work Phone: [facility] 11-19-2022 09:15-0400 SaO2% (BldA) [Mass fraction] 97 % Karla Clark CNP Work Phone: [facility] 11-19-2022 09:15-0400 Systolic blood pressure 133 mm[Hg] Karla Clark CNP Work Phone: [facility] 09-18-2022 13:57-0400 Body height 162.56 cm Karla Clark CNP Work Phone: [facility] Work Phone: 09-18-2022 13:57-0400 Body mass index (BMI) [Ratio] 24.9 kg/m2 Karla Clark CNP Work Phone: [facility] Work Phone: 09-18-2022 13:57-0400 Body surface area Derived from formula 1.7 m2 Karla Clark CNP Work Phone: [facility] Work Phone: 09-18-2022 13:57-0400 Body temperature 97.6 [degF] Karla Amber INTERNET 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 Work Phone: [facility] Work Phone: 09-18-2022 13:57-0400 Body weight 65.68 kg Karla Clark CNP Work Phone: [facility] Work Phone: 09-18-2022 13:57-0400 Diastolic blood pressure 74 mm[Hg] 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: [facility] Work Phone: 09-18-2022 13:57-0400 Heart rate 80 /min Karla Clark CNP Work Phone: [facility] Work Phone: 09-18-2022 13:57-0400 SaO2% (BldA) [Mass fraction] 98 % Karla Clark CNP Work Phone: [facility] Work Phone: 09-18-2022 13:57-0400 Systolic blood pressure 142 mm[Hg] Karla Clark CNP Work Phone: [facility] Work Phone: 09-14-2022 15:10-0400 Body temperature 98.6 [degF] PHYSICIAN NO [facility] 09-14-2022 15:10-0400 Diastolic blood pressure 75 mm[Hg] PHYSICIAN NO [facility] 09-14-2022 15:10-0400 Heart rate 81 /min PHYSICIAN NO [facility] 09-14-2022 15:10-0400 Respiratory rate 20 /min PHYSICIAN NO [facility] 09-14-2022 15:10-0400 SaO2% (BldA) [Mass fraction] 95 % PHYSICIAN NO [facility] 09-14-2022 15:10-0400 Systolic blood pressure 144 mm[Hg] PHYSICIAN NO [facility] 09-14-2022 06:43-0400 Body weight 72.6 kg PHYSICIAN NO [facility] 04-14-2023 00:00-0400 Inhaled oxygen flow rate 1 L/min PHYSICIAN NO [facility] 09-13-2022 08:33-0400 Body height 157.48 cm PHYSICIAN NO [facility] 09-13-2022 08:33-0400 Body mass index (BMI) [Ratio] 26.2 kg/m2 PHYSICIAN NO [facility] 09-10-2022 09:45-0400 Body height Emory Adame Other [employer] Other 09-10-2022 09:45-0400 Body mass index (BMI) [Ratio] 26.15 kg/m2 Emory Adame Other [employer] Other 09-10-2022 09:45-0400 Body weight 64.86 kg Emory Adame Other [employer] Other 08-27-2022 08:26-0400 Body height 162.56 cm Karla Clark CNP Work Phone: [facility] Work Phone: 08-27-2022 08:26-0400 Body mass index (BMI) [Ratio] 24.6 kg/m2 Karla Clark CNP Work Phone: [facility] Work Phone: 08-27-2022 08:26-0400 Body surface area Derived from formula 1.7 m2 Karla Clark CNP Work Phone: [facility] Work Phone: 08-27-2022 08:26-0400 Body temperature 97 [degF] Karla Clark CNP Work Phone: [facility] Work Phone: 08-27-2022 08:26-0400 Body weight 65.14 kg Karla Clark CNP Work Phone: [facility] Work Phone: 08-27-2022 08:26-0400 Diastolic blood pressure 73 mm[Hg] Karla Clark CNP Work Phone: [facility] Work Phone: 08-27-2022 08:26-0400 Heart rate 66 /min Karla Clark CNP Work Phone: [facility] Work Phone: 08-27-2022 08:26-0400 SaO2% (BldA) [Mass fraction] 96 % Karla Calrk CNP Work Phone: [facility] Work Phone: 08-27-2022 08:26-0400 Systolic blood pressure 115 mm[Hg] Karla Clark CNP Work Phone: [facility] Work Phone: 06-18-2022 11:23-0500 Body height 162.56 cm Karla Clark CNP Work Phone: [facility] Work Phone: 06-18-2022 11:23-0500 Body mass index (BMI) [Ratio] 24.9 kg/m2 Karla Clark CNP Work Phone: [facility] Work Phone: 06-18-2022 11:23-0500 Body surface area Derived from formula 1.7 m2 Karla Clark CNP Work Phone: [facility] Work Phone: 06-18-2022 11:23-0500 Body temperature 97.6 [degF] Karla Clark CNP Work Phone: [facility] Work Phone: 06-18-2022 11:23-0500 Body weight 65.86 kg Karla Clark CNP Work Phone: [facility] Work Phone: 06-18-2022 11:23-0500 Diastolic blood pressure 78 mm[Hg] Karla Clark CNP Work Phone: [facility] Work Phone: 06-18-2022 11:23-0500 Heart rate 62 /min Karla Clark CNP Work Phone: [facility] Work Phone: 06-18-2022 11:23-0500 SaO2% (BldA) [Mass fraction] 98 % Karla Clark CNP Work Phone: [facility] Work Phone: 06-18-2022 11:23-0500 Systolic blood pressure 125 mm[Hg] Karla Clark CNP Work Phone: [facility] Work Phone: 03-20-2022 13:56-0400 Body height 162.56 cm Karla Clark CNP Work Phone: [facility] Work Phone: 03-20-2022 13:56-0400 Body mass index (BMI) [Ratio] 24.4 kg/m2 Karla Clark CNP Work Phone: [facility] Work Phone: 03-20-2022 13:56-0400 Body surface area Derived from formula 1.7 m2 Karla Clark CNP Work Phone: [facility] Work Phone: 03-20-2022 13:56-0400 Body temperature 99.5 [degF] Karla Clark CNP Work Phone: [facility] Work Phone: 03-20-2022 13:56-0400 Body weight 64.41 kg Karla Clark CNP Work Phone: [facility] Work Phone: 03-20-2022 13:56-0400 Diastolic blood pressure 82 mm[Hg] Karla Clark CNP Work Phone: [facility] Work Phone: 03-20-2022 13:56-0400 Heart rate 69 /min Karla Clark CNP Work Phone: [facility] Work Phone: 03-20-2022 13:56-0400 Heart Rate Rhythm 1 1 Karla Clark CNP Work Phone: [facility] Work Phone: 03-20-2022 13:56-0400 SaO2% (BldA) [Mass fraction] 98 % Karla Clark CNP Work Phone: [facility] Work Phone: 03-20-2022 13:56-0400 Systolic blood pressure 126 mm[Hg] Karla Clark CNP Work Phone: [facility] Work Phone: 12-20-2021 14:07-0400 Body height 162.56 cm Karla Clark CNP Work Phone: [facility] Work Phone: 12-20-2021 14:07-0400 Body mass index (BMI) [Ratio] 24.5 kg/m2 Karla Clark CNP Work Phone: [facility] Work Phone: 12-20-2021 14:07-0400 Body surface area Derived from formula 1.7 m2 Krala Clark CNP Work Phone: [facility] Work Phone: 12-20-2021 14:07-0400 Body temperature 97.6 [degF] Karla Clark CNP Work Phone: [facility] Work Phone: 12-20-2021 14:07-0400 Body weight 64.86 kg Karla Clark CNP Work Phone: [facility] Work Phone: 12-20-2021 14:07-0400 Diastolic blood pressure 80 mm[Hg] Karla Clark CNP Work Phone: [facility] Work Phone: 12-20-2021 14:07-0400 Heart rate 92 /min Karla Clark CNP Work Phone: [facility] Work Phone: 12-20-2021 14:07-0400 SaO2% (BldA) [Mass fraction] 98 % Karla Clark CNP Work Phone: [facility] Work Phone: 12-20-2021 14:07-0400 Systolic blood pressure 130 mm[Hg] Karla Clark CNP Work Phone: [facility] Work Phone: 11-03-2021 10:00-0400 Body height 162.56 cm Karla Clark CNP Work Phone: [facility] Work Phone: 11-03-2021 10:00-0400 Body mass index (BMI) [Ratio] 24.3 kg/m2 Karla Clark CNP Work Phone: [facility] Work Phone: 11-03-2021 10:00-0400 Body surface area Derived from formula 1.69 m2 Karla Clark CNP Work Phone: [facility] Work Phone: 11-03-2021 10:00-0400 Body surface area Derived from formula 1.7 m2 Karla Clark CNP Work Phone: [facility] Work Phone: 11-03-2021 10:00-0400 Body temperature 97.6 [degF] Karla Clark CNP Work Phone: [facility] Work Phone: 11-03-2021 10:00-0400 Body weight 64.14 kg Karla Clark CNP Work Phone: [facility] Work Phone: 11-03-2021 10:00-0400 Diastolic blood pressure 80 mm[Hg] Karla Clark CNP Work Phone: [facility] Work Phone: 11-03-2021 10:00-0400 Heart rate 70 /min Karla Clark CNP Work Phone: [facility] Work Phone: 11-03-2021 10:00-0400 SaO2% (BldA) [Mass fraction] 98 % Karla Clark CNP Work Phone: [facility] Work Phone: 11-03-2021 10:00-0400 Systolic blood pressure 126 mm[Hg] Karla Clark CNP Work Phone: [facility] Work Phone: 07-28-2021 13:20-0500 Body height 162.56 cm Karla Clark CNP Work Phone: [facility] Work Phone: 07-28-2021 13:20-0500 Body mass index (BMI) [Ratio] 24.4 kg/m2 Karla Clark CNP Work Phone: [facility] Work Phone: 02-25-2022 13:20-0500 Body surface area Derived from formula 1.69 m2 Karla Clark CNP Work Phone: [facility] Work Phone: 07-28-2021 13:20-0500 Body surface area Derived from formula 1.7 m2 Karla Clark CNP Work Phone: [facility] Work Phone: 07-28-2021 13:20-0500 Body temperature 98.6 [degF] Karla Clark CNP Work Phone: [facility] Work Phone: 07-28-2021 13:20-0500 Body weight 64.59 kg Karla Clark CNP Work Phone: [facility] Work Phone: 07-28-2021 13:20-0500 Diastolic blood pressure 82 mm[Hg] Karla Clark CNP Work Phone: [facility] Work Phone: 07-28-2021 13:20-0500 Heart rate 80 /min Karla Clark CNP Work Phone: [facility] Work Phone: 07-28-2021 13:20-0500 Respiratory rate 18 /min Karla Clark CNP Work Phone: [facility] Work Phone: 07-28-2021 13:20-0500 SaO2% (BldA) [Mass fraction] 98 % Karla Clark CNP Work Phone: [facility] Work Phone: 07-28-2021 13:20-0500 Systolic blood pressure 134 mm[Hg] Karla Clark CNP Work Phone: [facility] Work Phone: 05-08-2021 10:04-0500 Body height 162.56 cm Karla Clark CNP Work Phone: [facility] Work Phone: 05-08-2021 10:04-0500 Body mass index (BMI) [Ratio] 24.2 kg/m2 Karla Clark CNP Work Phone: [facility] Work Phone: 05-08-2021 10:04-0500 Body surface area Derived from formula 1.69 m2 Karla Clark CNP Work Phone: [facility] Work Phone: 05-08-2021 10:04-0500 Body surface area Derived from formula 1.7 m2 Karla Clark CNP Work Phone: [facility] Work Phone: 05-08-2021 10:04-0500 Body temperature 99.1 [degF] Karla Clark CNP Work Phone: [facility] Work Phone: 05-08-2021 10:04-0500 Body weight 64.05 kg Karla Clark CNP Work Phone: [facility] Work Phone: 05-08-2021 10:04-0500 Diastolic blood pressure 78 mm[Hg] Karla Clark CNP Work Phone: [facility] Work Phone: 05-08-2021 10:04-0500 Heart rate 69 /min Karla Clark CNP Work Phone: [facility] Work Phone: 05-08-2021 10:04-0500 SaO2% (BldA) [Mass fraction] 99 % Karla Clark CNP Work Phone: [facility] Work Phone: 05-08-2021 10:04-0500 Systolic blood pressure 132 mm[Hg] Karla Amber [facility] Work Phone: [facility] Work Phone: 06-17-2020 09:49-0500 BMI (Body Mass Index) 24.9 kg/m2 [facility] Work Phone: 06-17-2020 09:49-0500 Body Temperature 97.3 [degF] [facility] Work Phone: 06-17-2020 09:49-0500 Body weight 65.86 kg [facility] Work Phone: 06-17-2020 09:49-0500 BP Diastolic 70 mm[Hg] [facility] Work Phone: 06-17-2020 09:49-0500 BP Systolic 100 mm[Hg] [facility] Work Phone: 06-17-2020 09:49-0500 BSA (Body Surface Area) 1.71 m2 [facility] Work Phone: 06-17-2020 09:49-0500 Height 162.56 cm [facility] Work Phone: 06-17-2020 09:49-0500 Pulse (Heart Rate) 79 /min [facility] Work Phone: 06-17-2020 09:49-0500 Pulse Oximetry 97 % [facility] Work Phone: 06-17-2020 09:49-0500 Respiratory Rate 18 /min [facility] Work Phone: 06-17-2020 09:49-0500 SaO2% (BldA) [Mass fraction] 97 % Karla Amber CNP Work Phone: [facility] Work Phone: 06-08-2020 10:39-0500 BP Diastolic 72 mm[Hg] [facility] [place] 06-08-2020 10:39-0500 BP Systolic 137 mm[Hg] [place], [place] 06-08-2020 10:39-0500 Pulse (Heart Rate) 84 /min [place], [place] 06-08-2020 10:39-0500 Pulse Oximetry 98 % [place], [place] 06-08-2020 10:39-0500 Respiratory Rate 12 /min [facility] [place] 06-06-2020 13:08-0500 BMI (Body Mass Index) 25 kg/m2 [facility] Work Phone: 06-06-2020 13:08-0500 Body Temperature 96.2 [degF] [facility] Work Phone: 06-06-2020 13:08-0500 Body weight 65.95 kg [facility] Work Phone: 06-06-2020 13:08-0500 BP Diastolic 86 mm[Hg] [facility] Work Phone: 06-06-2020 13:08-0500 BP Systolic 128 mm[Hg] [facility] Work Phone: 06-06-2020 13:08-0500 BSA (Body Surface Area) 1.71 m2 [facility] Work Phone: 06-06-2020 13:08-0500 Height 162.56 cm [facility] Work Phone: 06-06-2020 13:08-0500 Respiratory Rate 18 /min [facility] Work Phone: 05-06-2020 14:04-0500 BMI (Body Mass Index) 25.2 kg/m2 [facility] Work Phone: 05-06-2020 14:04-0500 Body weight 66.68 kg [facility] Work Phone: 05-06-2020 14:04-0500 BP Diastolic 70 mm[Hg] [facility] Work Phone: 05-06-2020 14:04-0500 BP Systolic 116 mm[Hg] [facility] Work Phone: 05-06-2020 14:04-0500 BSA (Body Surface Area) 1.72 m2 [facility] Work Phone: 05-06-2020 14:04-0500 Height 162.56 cm [facility] Work Phone: 05-06-2020 14:04-0500 Pulse (Heart Rate) 72 /min [facility] Work Phone: 05-06-2020 14:04-0500 Pulse Oximetry 96 % [facility] Work Phone: 03-31-2020 14:22-0400 BMI (Body Mass Index) 25.3 kg/m2 [facility] Work Phone: 03-31-2020 14:22-0400 Body Temperature 97.7 [degF] [facility] Work Phone: 03-31-2020 14:22-0400 Body weight 66.95 kg [facility] Work Phone: 03-31-2020 14:22-0400 BP Diastolic 90 mm[Hg] [facility] Work Phone: 03-31-2020 14:22-0400 BP Systolic 142 mm[Hg] [facility] Work Phone: 03-31-2020 14:22-0400 BSA (Body Surface Area) 1.72 m2 [facility] Work Phone: 03-31-2020 14:22-0400 Height 162.56 cm [facility] Work Phone: 03-31-2020 14:22-0400 Pulse (Heart Rate) 97 /min [facility] Work Phone: 03-31-2020 14:22-0400 Pulse Oximetry 97 % [facility] Work Phone: 03-31-2020 14:22-0400 Respiratory Rate 18 /min [facility] Work Phone: 03-14-2020 14:01-0400 BMI (Body Mass Index) 25.2 kg/m2 [facility] Work Phone: 03-14-2020 14:01-0400 Body Temperature 96.3 [degF] [facility] Work Phone: 03-14-2020 14:01-0400 Body weight 66.59 kg [facility] Work Phone: 03-14-2020 14:01-0400 BP Diastolic 86 mm[Hg] [facility] Work Phone: 03-14-2020 14:01-0400 BP Systolic 130 mm[Hg] [facility] Work Phone: 03-14-2020 14:01-0400 BSA (Body Surface Area) 1.72 m2 [facility] Work Phone: 03-14-2020 14:01-0400 Height 162.56 cm [facility] Work Phone: 03-14-2020 14:01-0400 Pulse (Heart Rate) 83 /min [facility] Work Phone: 03-14-2020 14:01-0400 Respiratory Rate 18 /min [facility] Work Phone: 02-26-2020 11:04-0400 BMI (Body Mass Index) 25.8 kg/m2 [facility] Work Phone: 02-26-2020 11:04-0400 Body Temperature 98.1 [degF] [facility] Work Phone: 02-26-2020 11:04-0400 Body weight 65.95 kg [facility] Work Phone: 02-26-2020 11:04-0400 BP Diastolic 90 mm[Hg] [facility] Work Phone: 02-26-2020 11:04-0400 BP Systolic 144 mm[Hg] [facility] Work Phone: 02-26-2020 11:04-0400 BSA (Body Surface Area) 1.69 m2 [facility] Work Phone: 02-26-2020 11:04-0400 Height 160.02 cm [facility] Work Phone: 02-26-2020 11:04-0400 Pulse (Heart Rate) 62 /min [facility] Work Phone: 02-26-2020 11:04-0400 Pulse Oximetry 95 % [facility] Work Phone: 02-26-2020 11:04-0400 Respiratory Rate 18 /min [facility] Work Phone: 11-19-2019 09:03-0400 BMI (Body Mass Index) 27.5 kg/m2 [facility] Work Phone: Comment on above: self 11-19-2019 09:03-0400 Body weight 70.31 kg [facility] Work Phone: Comment on above: self 11-19-2019 09:03-0400 BSA (Body Surface Area) 1.74 m2 [facility] Work Phone: Comment on above: self 11-19-2019 09:03-0400 Height 160.02 cm [facility] Work Phone: Comment on above: self 07-23-2019 14:03-0500 BMI (Body Mass Index) 27 kg/m2 [facility] Work Phone: 07-23-2019 14:03-0500 Body Temperature 99.9 [degF] [facility] Work Phone: 07-23-2019 14:03-0500 Body weight 69.04 kg [facility] Work Phone: 07-23-2019 14:03-0500 BP Diastolic 82 mm[Hg] [facility] Work Phone: 07-23-2019 14:03-0500 BP Systolic 110 mm[Hg] [facility] Work Phone: 07-23-2019 14:03-0500 BSA (Body Surface Area) 1.72 m2 [facility] Work Phone: 07-23-2019 14:03-0500 Height 160.02 cm [facility] Work Phone: 07-23-2019 14:03-0500 Pulse (Heart Rate) 80 /min [facility] Work Phone: 07-23-2019 14:03-0500 Pulse Oximetry 96 % [facility] Work Phone: 07-23-2019 14:03-0500 Respiratory Rate 18 /min [facility] Work Phone: 06-05-2019 13:43-0500 BMI (Body Mass Index) 27.2 kg/m2 [facility] Work Phone: 06-05-2019 13:43-0500 Body weight 69.76 kg [facility] Work Phone: 06-05-2019 13:43-0500 BP Diastolic 80 mm[Hg] [facility] Work Phone: 06-05-2019 13:43-0500 BP Systolic 118 mm[Hg] [facility] Work Phone: 06-05-2019 13:43-0500 BSA (Body Surface Area) 1.73 m2 [facility] Work Phone: 06-05-2019 13:43-0500 Height 160.02 cm [facility] Work Phone: 06-05-2019 13:43-0500 Pulse (Heart Rate) 73 /min [facility] Work Phone: 06-05-2019 13:43-0500 Pulse Oximetry 96 % [facility] Work Phone: 04-23-2019 13:59-0500 BMI (Body Mass Index) 27.1 kg/m2 [facility] Work Phone: 04-23-2019 13:59-0500 Body weight 69.4 kg [facility] Work Phone: 04-23-2019 13:59-0500 BP Diastolic 76 mm[Hg] [facility] Work Phone: 04-23-2019 13:59-0500 BP Systolic 124 mm[Hg] [facility] Work Phone: 04-23-2019 13:59-0500 BSA (Body Surface Area) 1.73 m2 [facility] Work Phone: 04-23-2019 13:59-0500 Height 160.02 cm [facility] Work Phone: 04-23-2019 13:59-0500 Pulse (Heart Rate) 58 /min [facility] Work Phone: 04-23-2019 13:59-0500 Pulse Oximetry 97 % [facility] Work Phone: 04-15-2019 10:33-0500 BMI (Body Mass Index) 28 kg/m2 [facility] Work Phone: 04-15-2019 10:33-0500 Body Temperature 99.3 [degF] [facility] Work Phone: 04-15-2019 10:33-0500 Body weight 71.76 kg [facility] Work Phone: 04-15-2019 10:33-0500 BP Diastolic 84 mm[Hg] [facility] Work Phone: 04-15-2019 10:33-0500 BP Systolic 120 mm[Hg] [facility] Work Phone: 04-15-2019 10:33-0500 BSA (Body Surface Area) 1.75 m2 [facility] Work Phone: 04-15-2019 10:33-0500 Height 160.02 cm [facility] Work Phone: 04-15-2019 10:33-0500 Pulse (Heart Rate) 83 /min [facility] Work Phone: 04-15-2019 10:33-0500 Pulse Oximetry 97 % [facility] Work Phone: 04-10-2019 12:10-0500 BP Diastolic 85 mm[Hg] [facility] [place] 04-10-2019 12:10-0500 BP Systolic 128 mm[Hg] [facility] [place] 04-10-2019 12:10-0500 Pulse (Heart Rate) 83 /min [facility] 04-10-2019 12:10-0500 Pulse Oximetry 99 % [facility] 04-10-2019 12:10-0500 Respiratory Rate 12 /min [facility] [place] 03-05-2019 09:25-0400 BMI (Body Mass Index) 27.7 kg/m2 [facility] Work Phone: 03-05-2019 09:25-0400 Body Temperature 96.5 [degF] [facility] Work Phone: 03-05-2019 09:25-0400 Body weight 70.94 kg [facility] Work Phone: 03-05-2019 09:25-0400 BP Diastolic 86 mm[Hg] [facility] Work Phone: 03-05-2019 09:25-0400 BP Systolic 110 mm[Hg] [facility] Work Phone: 03-05-2019 09:25-0400 BSA (Body Surface Area) 1.74 m2 [facility] Work Phone: 03-05-2019 09:25-0400 Height 160.02 cm [facility] Work Phone: 03-05-2019 09:25-0400 Pulse (Heart Rate) 86 /min [facility] Work Phone: 03-05-2019 09:25-0400 Pulse Oximetry 97 % [facility] Work Phone: 03-05-2019 09:25-0400 Respiratory Rate 18 /min [facility] Work Phone: 12-22-2018 10:11-0400 BMI (Body Mass Index) 28.4 kg/m2 [facility] Work Phone: 12-22-2018 10:11-0400 Body Temperature 98.2 [degF] [facility] Work Phone: 12-22-2018 10:11-0400 Body weight 72.85 kg [facility] Work Phone: 12-22-2018 10:11-0400 BP Diastolic 80 mm[Hg] [facility] Work Phone: 12-22-2018 10:11-0400 BP Systolic 110 mm[Hg] [facility] Work Phone: 12-22-2018 10:11-0400 BSA (Body Surface Area) 1.76 m2 [facility] Work Phone: 12-22-2018 10:11-0400 Height 160.02 cm [facility] Work Phone: 12-22-2018 10:11-0400 [facility] ([facility]) 67 /[facility] Work Phone: 12-22-2018 10:11-0400 Pulse Oximetry 94 % [facility] Work Phone: 12-22-2018 10:11-0400 Respiratory Rate 14 /min [facility] Work Phone: 11-06-2018 13:55-0400 BMI (Body Mass Index) 28.7 kg/m2 [facility] Work Phone: 11-06-2018 13:55-0400 Body Temperature 97.8 [degF] [facility] Work Phone: 11-06-2018 13:55-0400 Body weight 73.48 kg [facility] Work Phone: 11-06-2018 13:55-0400 BP Diastolic 76 mm[Hg] [facility] Work Phone: 11-06-2018 13:55-0400 BP Systolic 110 mm[Hg] [facility] Work Phone: 11-06-2018 13:55-0400 BSA (Body Surface Area) 1.77 m2 [facility] Work Phone: 11-06-2018 13:55-0400 Height 160.02 cm [facility] Work Phone: 11-06-2018 13:55-0400 Pulse (Heart Rate) 80 /min [facility] Work Phone: 11-06-2018 13:55-0400 Pulse Oximetry 98 % [facility] Work Phone: 11-06-2018 13:55-0400 Respiratory Rate 22 /min [facility] Work Phone: 09-11-2018 10:25-0400 Body height 160.02 cm Karla Amber [facility] Work Phone: [facility] Work Phone: 09-11-2018 10:25-0400 Body mass index (BMI) [Ratio] 29.6 kg/m2 Karla Clark [facility] Work Phone: [facility] Work Phone: 09-11-2018 10:25-0400 Body surface area Derived from formula 1.79 m2 Karlajulius Clark CNP Work Phone: [facility] Work Phone: 09-11-2018 10:25-0400 Body temperature 97.4 [degF] Karla Clark CNP Work Phone: [facility] Work Phone: 09-11-2018 10:25-0400 Body weight 75.75 kg Karla Clark CNP Work Phone: [facility] Work Phone: 09-11-2018 10:25-0400 Diastolic blood pressure 76 mm[Hg] Karla Clark CNP Work Phone: [facility] Work Phone: 09-11-2018 10:25-0400 Heart rate 78 /min Karla Clark CNP Work Phone: [facility] Work Phone: 09-11-2018 10:25-0400 Pulse Oximetry 99 % Karla Clark [facility] Work Phone: 09-11-2018 10:25-0400 Respiratory rate 22 /min Karla Clark CNP Work Phone: [facility] Work Phone: 09-11-2018 10:25-0400 SaO2% (BldA) [Mass fraction] 99 % Karla Clark CNP Work Phone: [facility] Work Phone: 09-11-2018 10:25-0400 Systolic blood pressure 120 mm[Hg] Karla Clark CNP Work Phone: [facility] Work Phone: 09-04-2018 13:24-0400 Body height 160.02 cm Karla Clark CNP Work Phone: [facility] Work Phone: 09-04-2018 13:24-0400 Body mass index (BMI) [Ratio] 29.8 kg/m2 Karla Clark CNP Work Phone: [facility] Work Phone: 09-04-2018 13:24-0400 Body surface area Derived from formula 1.8 m2 Karla Clark CNP Work Phone: [facility] Work Phone: 09-04-2018 13:24-0400 Body temperature 98.3 [degF] Karla Clark CNP Work Phone: [facility] Work Phone: 09-04-2018 13:24-0400 Body weight 76.3 kg Karla Clark CNP Work Phone: [facility] Work Phone: 09-04-2018 13:24-0400 Diastolic blood pressure 90 mm[Hg] Karla Clark CNP Work Phone: [facility] Work Phone: 09-04-2018 13:24-0400 Heart rate 86 /min Karla Clark CNP Work Phone: [facility] Work Phone: 09-04-2018 13:24-0400 Inhaled oxygen concentration 21 % Karla Clark CNP Work Phone: [facility] Work Phone: 09-04-2018 13:24-0400 Inhaled oxygen flow rate 0 L/min Karla Clark CNP Work Phone: [facility] Work Phone: 09-04-2018 13:24-0400 Respiratory rate 20 /min Karla Clark CNP Work Phone: [facility] Work Phone: 09-04-2018 13:24-0400 Systolic blood pressure 146 mm[Hg] Karla Clark CNP Work Phone: [facility] Work Phone: 07-31-2018 13:37-0500 Body height 160.02 cm Karla Clark CNP Work Phone: [facility] Work Phone: 07-31-2018 13:37-0500 Body mass index (BMI) [Ratio] 29.9 kg/m2 Karla Clark CNP Work Phone: [facility] Work Phone: 07-31-2018 13:37-0500 Body surface area Derived from formula 1.8 m2 Karla Clark CNP Work Phone: [facility] Work Phone: 07-31-2018 13:37-0500 Body temperature 97.9 [degF] Karla Clark CNP Work Phone: [facility] Work Phone: 07-31-2018 13:37-0500 Body weight 76.66 kg Karla Clark CNP Work Phone: [facility] Work Phone: 07-31-2018 13:37-0500 Diastolic blood pressure 74 mm[Hg] Karla Clark CNP Work Phone: [facility] Work Phone: 07-31-2018 13:37-0500 Heart rate 51 /min Karla Clark CNP Work Phone: [facility] Work Phone: 07-31-2018 13:37-0500 Pulse Oximetry 100 % Karla Clark [facility] Work Phone: 07-31-2018 13:37-0500 Respiratory rate 22 /min Karla Clark CNP Work Phone: [facility] Work Phone: 07-31-2018 13:37-0500 SaO2% (BldA) [Mass fraction] 100 % Karla Clark CNP Work Phone: [facility] Work Phone: 07-31-2018 13:37-0500 Systolic blood pressure 122 mm[Hg] Karla Clark CNP Work Phone: [facility] Work Phone: 05-08-2018 17:00-0500 BMI (Body Mass Index) 29.94 kg/m2 [facility] 05-08-2018 17:00-0500 Body Temperature 97.9 [degF] [facility] 05-08-2018 17:00-0500 BP Diastolic 70 mm[Hg] [facility] 05-08-2018 17:00-0500 BP Systolic 124 mm[Hg] [facility] 05-08-2018 17:00-0500 BSA (Body Surface Area) 1.85 m2 [facility] 05-08-2018 17:00-0500 Height 160.02 cm [facility] 05-08-2018 17:00-0500 Pulse (Heart Rate) 70 /min [facility] 05-08-2018 17:00-0500 Pulse Oximetry 99 % [facility] 05-08-2018 17:00-0500 Respiratory Rate 20 /min [facility] 05-08-2018 17:00-0500 Weight 76.66 kg [facility] 05-08-2018 15:00-0500 Body mass index (BMI) [Ratio] 29.9 kg/m2 Karla Clark [facility] Work Phone: [facility] Work Phone: 05-08-2018 15:00-0500 Body surface area Derived from formula 1.8 m2 Karla Amber [facility] Work Phone: [facility] Work Phone: 05-08-2018 15:00-0500 Body weight 76.66 kg 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: [facility] Work Phone: 03-20-2018 13:39-0400 BMI (Body Mass Index) 30.11 kg/m2 [facility] 03-20-2018 13:39-0400 Body Temperature 97.9 [degF] [facility] 03-20-2018 13:39-0400 BP Diastolic 84 mm[Hg] [facility] 03-20-2018 13:39-0400 BP Systolic 122 mm[Hg] [facility] 03-20-2018 13:39-0400 BSA (Body Surface Area) 1.85 m2 [facility] 03-20-2018 13:39-0400 Height 160.02 cm [facility] 03-20-2018 13:39-0400 Pulse (Heart Rate) 59 /min [facility] 03-20-2018 13:39-0400 Pulse Oximetry 98 % [facility] 03-20-2018 13:39-0400 Respiratory Rate 20 /min [facility] 03-20-2018 13:39-0400 Weight 77.11 kg [facility] 03-20-2018 10:39-0400 Body height 160.02 cm Karla Amber [facility] Work Phone: [facility] Work Phone: 03-20-2018 10:39-0400 Body mass index (BMI) [Ratio] 30.1 kg/m2 Karla Clark CNP Work Phone: [facility] Work Phone: 03-20-2018 10:39-0400 Body surface area Derived from formula 1.8 m2 Karla Clark CNP Work Phone: [facility] Work Phone: 03-20-2018 10:39-0400 Body temperature 97.9 [degF] Karla Clark CNP Work Phone: [facility] Work Phone: 03-20-2018 10:39-0400 Body weight 77.11 kg Karla Clark CNP Work Phone: [facility] Work Phone: 03-20-2018 10:39-0400 Diastolic blood pressure 84 mm[Hg] Karla Clark CNP Work Phone: [facility] Work Phone: 03-20-2018 10:39-0400 Heart rate 59 /min Karla Clark CNP Work Phone: [facility] Work Phone: 03-20-2018 10:39-0400 Respiratory rate 20 /min Karla Clark CNP Work Phone: [facility] Work Phone: 03-20-2018 10:39-0400 Systolic blood pressure 122 mm[Hg] Karla Clark CNP Work Phone: [facility] Work Phone: 02-11-2018 17:45-0400 BMI (Body Mass Index) 30.11 kg/m2 Karlajulius Clark [facility] 02-11-2018 17:45-0400 Body Temperature 98.6 [degF] Karla Amber [facility] 02-11-2018 17:45-0400 BP Diastolic 80 mm[Hg] [facility] 02-11-2018 17:45-0400 BP Systolic 124 mm[Hg] [facility] 02-11-2018 17:45-0400 BSA (Body Surface Area) 1.85 m2 [facility] 02-11-2018 17:45-0400 Height 160.02 cm [facility] 02-11-2018 17:45-0400 Pulse (Heart Rate) 72 /min [facility] 02-11-2018 17:45-0400 Pulse Oximetry 97 % [facility] 02-11-2018 17:45-0400 Respiratory Rate 20 /min [facility] 02-11-2018 17:45-0400 Weight 77.11 kg [facility] 02-11-2018 16:45-0400 BMI (Body Mass Index) 30.11 kg/m2 [facility] 02-11-2018 16:45-0400 Body Temperature 98.6 [degF] [facility] 02-11-2018 16:45-0400 BP Diastolic 80 mm[Hg] [facility] 02-11-2018 16:45-0400 BP Systolic 124 mm[Hg] [facility] 02-11-2018 16:45-0400 BSA (Body Surface Area) 1.85 m2 [facility] 02-11-2018 16:45-0400 Height 160.02 cm [facility] 02-11-2018 16:45-0400 Pulse (Heart Rate) 72 /min Karla Clark [facility] 02-11-2018 16:45-0400 Pulse Oximetry 97 % Karla Clark [facility] 02-11-2018 16:45-0400 Respiratory Rate 20 /min Karla Clark [facility] 02-11-2018 16:45-0400 Weight 77.11 kg Karla Clark [facility] 02-11-2018 14:45-0400 Body height 160.02 cm Karla Clark CNP Work Phone: [facility] Work Phone: 02-11-2018 14:45-0400 Body mass index (BMI) [Ratio] 30.1 kg/m2 Karla Clark CNP Work Phone: [facility] Work Phone: 02-11-2018 14:45-0400 Body surface area Derived from formula 1.8 m2 Karla Clark CNP Work Phone: [facility] Work Phone: 02-11-2018 14:45-0400 Body temperature 98.6 [degF] Karla Clark CNP Work Phone: [facility] Work Phone: 02-11-2018 14:45-0400 Body weight 77.11 kg Karla Clark CNP Work Phone: [facility] Work Phone: 02-11-2018 14:45-0400 Diastolic blood pressure 80 mm[Hg] Karla Clark CNP Work Phone: [facility] Work Phone: 02-11-2018 14:45-0400 Heart rate 72 /min Karla Clark CNP Work Phone: [facility] Work Phone: 02-11-2018 14:45-0400 Respiratory rate 20 /min Karla Clark CNP Work Phone: [facility] Work Phone: 02-11-2018 14:45-0400 Systolic blood pressure 124 mm[Hg] 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: [facility] Work Phone: 12-19-2017 17:08-0400 BMI (Body Mass Index) 30.29 kg/m2 [facility] 12-19-2017 17:08-0400 Body Temperature 98.7 [degF] [facility] 12-19-2017 17:08-0400 BP Diastolic 80 mm[Hg] [facility] 12-19-2017 17:08-0400 BP Systolic 122 mm[Hg] [facility] 12-19-2017 17:08-0400 BSA (Body Surface Area) 1.86 m2 [facility] 12-19-2017 17:08-0400 Height 160.02 cm [facility] 12-19-2017 17:08-0400 Pulse (Heart Rate) 97 /min [facility] 12-19-2017 17:08-0400 Pulse Oximetry 96 % [facility] 12-19-2017 17:08-0400 Respiratory Rate 18 /min [facility] 12-19-2017 17:08-0400 Weight 77.57 kg [facility] 12-19-2017 16:08-0400 BMI (Body Mass Index) 30.29 kg/m2 [facility] 12-19-2017 16:08-0400 Body Temperature 98.7 [degF] [facility] 12-19-2017 16:08-0400 BP Diastolic 80 mm[Hg] [facility] 12-19-2017 16:08-0400 BP Systolic 122 mm[Hg] [facility] 12-19-2017 16:08-0400 BSA (Body Surface Area) 1.86 m2 [facility] 12-19-2017 16:08-0400 Height 160.02 cm [facility] 12-19-2017 16:08-0400 Pulse (Heart Rate) 97 /min [facility] 12-19-2017 16:08-0400 Pulse Oximetry 96 % [facility] 12-19-2017 16:08-0400 Respiratory Rate 18 /min [facility] 12-19-2017 16:08-0400 Weight 77.57 kg [facility] 12-19-2017 14:08-0400 Body height 160.02 cm [facility] Amber CNP Work Phone: [facility] Work Phone: 12-19-2017 14:08-0400 Body mass index (BMI) [Ratio] 30.3 kg/m2 Karla Amber [facility] Work Phone: [facility] Work Phone: 12-19-2017 14:08-0400 Body surface area Derived from formula 1.81 m2 Karlajulius Clark CNP Work Phone: [facility] Work Phone: 12-19-2017 14:08-0400 Body temperature 98.7 [degF] Karla Clark CNP Work Phone: [facility] Work Phone: 12-19-2017 14:08-0400 Body weight 77.57 kg Karla Clark CNP Work Phone: [facility] Work Phone: 12-19-2017 14:08-0400 Diastolic blood pressure 80 mm[Hg] Karla Clark CNP Work Phone: [facility] Work Phone: 12-19-2017 14:08-0400 Heart rate 97 /min Karla Clark CNP Work Phone: [facility] Work Phone: 12-19-2017 14:08-0400 Respiratory rate 18 /min Karla Clark CNP Work Phone: [facility] Work Phone: 12-19-2017 14:08-0400 Systolic blood pressure 122 mm[Hg] Karla Clark CNP Work Phone: [facility] Work Phone: 10-08-2017 14:21-0400 BMI (Body Mass Index) 29.47 kg/m2 Karla Amber [facility] 10-08-2017 14:21-0400 Body Temperature 97.5 [degF] Karla Amber [facility] 10-08-2017 14:21-0400 BP Di[facility] 71 mm[Hg] [facility] 10-08-2017 14:21-0400 BP Systolic 109 mm[Hg] [facility] 10-08-2017 14:21-0400 BSA (Body Surface Area) 1.83 m2 [facility] 10-08-2017 14:21-0400 Height 160.02 cm [facility] 10-08-2017 14:21-0400 Pulse (Heart Rate) 53 /min [facility] rs [facility] 10-08-2017 14:21-0400 Pulse Oximetry 98 % [facility] 10-08-2017 14:21-0400 Respiratory Rate 18 /min [facility] 10-08-2017 14:21-0400 Weight 75.47 kg [facility] 10-08-2017 13:21-0400 BMI (Body Mass Index) 29.47 kg/m2 [facility] 10-08-2017 13:21-0400 Body Temperature 97.5 [degF] [facility] 10-08-2017 13:21-0400 BP Diastolic 71 mm[Hg] [facility] 10-08-2017 13:21-0400 BP Systolic 109 mm[Hg] [facility] 10-08-2017 13:21-0400 BSA (Body Surface Area) 1.83 m2 [facility] 10-08-2017 13:21-0400 Height 160.02 cm [facility] 10-08-2017 13:21-0400 Pulse (Heart Rate) 53 /min [facility] 10-08-2017 13:21-0400 Pulse Oximetry 98 % [facility] 10-08-2017 13:21-0400 Respiratory Rate 18 /min Karla Clark [facility] 10-08-2017 13:21-0400 Weight 75.47 kg Karla Clark [facility] 10-08-2017 11:21-0400 Body height 160.02 cm Karla Clark CNP Work Phone: [facility] Work Phone: 10-08-2017 11:21-0400 Body mass index (BMI) [Ratio] 29.4 kg/m2 Karla Clark CNP Work Phone: [facility] Work Phone: 10-08-2017 11:21-0400 Body surface area Derived from formula 1.79 m2 Karla Clark CNP Work Phone: [facility] Work Phone: 10-08-2017 11:21-0400 Body temperature 97.5 [degF] Karla Clark CNP Work Phone: [facility] Work Phone: 10-08-2017 11:21-0400 Body weight 75.3 kg Karla Clark CNP Work Phone: [facility] Work Phone: 10-08-2017 11:21-0400 Diastolic blood pressure 71 mm[Hg] Karla Clark CNP Work Phone: [facility] Work Phone: 10-08-2017 11:21-0400 Heart rate 53 /min Karla Clark CNP Work Phone: [facility] Work Phone: 10-08-2017 11:21-0400 Respiratory rate 18 /min Karla Clark CNP Work Phone: [facility] Work Phone: 10-08-2017 11:21-0400 Systolic blood pressure 109 mm[Hg] Karlajulius Clark [facility] Work Phone: [facility] Work Phone: 09-17-2017 13:46-0400 BMI (Body Mass Index) 29.43 kg/m2 [facility] 09-17-2017 13:46-0400 Body Temperature 98.9 [degF] [facility] 09-17-2017 13:46-0400 BP Diastolic 61 mm[Hg] [facility] 09-17-2017 13:46-0400 BP Systolic 91 mm[Hg] [facility] 09-17-2017 13:46-0400 BSA (Body Surface Area) 1.83 m2 [facility] 09-17-2017 13:46-0400 Height 160.02 cm [facility] 09-17-2017 13:46-0400 Pulse (Heart Rate) 54 /min [facility] 09-17-2017 13:46-0400 Pulse Oximetry 96 % [facility] 09-17-2017 13:46-0400 Respiratory Rate 18 /min [facility] 09-17-2017 13:46-0400 Weight 75.35 kg [facility] 09-17-2017 12:46-0400 BMI (Body Mass Index) 29.43 kg/m2 [facility] 09-17-2017 12:46-0400 Body Temperature 98.9 [degF] [facility] 09-17-2017 12:46-0400 BP Diastolic 61 mm[Hg] Karla Amber [facility] 09-17-2017 12:46-0400 BP Systolic 91 mm[Hg] [facility] 09-17-2017 12:46-0400 BSA (Body Surface Area) 1.83 m2 [facility] 09-17-2017 12:46-0400 Height 160.02 cm [facility] 09-17-2017 12:46-0400 Pulse (Heart Rate) 54 /min [facility] 09-17-2017 12:46-0400 Pulse Oximetry 96 % [facility] 09-17-2017 12:46-0400 Respiratory Rate 18 /min [facility] 09-17-2017 12:46-0400 Weight 75.35 kg [facility] 09-17-2017 10:46-0400 Body height 160.02 cm Karla Clark [facility] Work Phone: [facility] Work Phone: 09-17-2017 10:46-0400 Body mass index (BMI) [Ratio] 29.4 kg/m2 Karla Clark [facility] Work Phone: [facility] Work Phone: 09-17-2017 10:46-0400 Body surface area Derived from formula 1.79 m2 Karla Clark [facility] Work Phone: [facility] Work Phone: 09-17-2017 10:46-0400 Body temperature 98.9 [degF] Karla Clark [facility] Work Phone: [facility] Work Phone: 09-17-2017 10:46-0400 Body weight 75.3 kg Karla Clark CNP Work Phone: [facility] Work Phone: 09-17-2017 10:46-0400 Diastolic blood pressure 61 mm[Hg] Karla Clark CNP Work Phone: [facility] Work Phone: 09-17-2017 10:46-0400 Heart rate 54 /min Karla Clark CNP Work Phone: [facility] Work Phone: 09-17-2017 10:46-0400 Respiratory rate 18 /min Karla Clark CNP Work Phone: [facility] Work Phone: 09-17-2017 10:46-0400 Systolic blood pressure 91 mm[Hg] Karla Clark CNP Work Phone: [facility] Work Phone: 07-30-2017 11:43-0500 BMI (Body Mass Index) 28.87 kg/m2 [facility] 07-30-2017 11:43-0500 Body Temperature 97.2 [degF] [facility] 07-30-2017 11:43-0500 BP Diastolic 84 mm[Hg] [facility] 07-30-2017 11:43-0500 BP Systolic 119 mm[Hg] [facility] 07-30-2017 11:43-0500 BSA (Body Surface Area) 1.81 m2 [facility] 07-30-2017 11:43-0500 Height 160.02 cm [facility] 07-30-2017 11:43-0500 [facility] 63 /[facility] 07-30-2017 11:43-0500 Pulse Oximetry 98 % [facility] 07-30-2017 11:43-0500 Respiratory Rate 20 /min [facility] 07-30-2017 11:43-0500 Weight 73.94 kg [facility] 07-30-2017 10:43-0500 BMI (Body Mass Index) 28.87 kg/m2 [facility]-2017 10:43-0500 Body Temperature 97.2 [degF] [facility] 07-30-2017 10:43-0500 BP Diastolic 84 mm[Hg] [facility] 07-30-2017 10:43-0500 BP Systolic 119 mm[Hg] [facility] 07-30-2017 10:43-0500 BSA (Body Surface Area) 1.81 m2 [facility] 07-30-2017 10:43-0500 Height 160.02 cm [facility] 07-30-2017 10:43-0500 Pulse (Heart Rate) 63 /min [facility] 07-30-2017 10:43-0500 Pulse Oximetry 98 % [facility] 07-30-2017 10:43-0500 Respiratory Rate 20 /min [facility] 07-30-2017 10:43-0500 Weight 73.94 kg [facility] 05-14-2017 12:46-0500 BMI (Body Mass Index) 29.23 kg/m2 [facility] 05-14-2017 12:46-0500 Body Temperature 98.2 [degF] [facility] 05-14-2017 12:46-0500 BP Diastolic 80 mm[Hg] [facility] 05-14-2017 12:46-0500 BP Systolic 118 mm[Hg] [facility] 05-14-2017 12:46-0500 BSA (Body Surface Area) 1.82 m2 [facility] 05-14-2017 12:46-0500 Height 160.02 cm [facility] 05-14-2017 12:46-0500 Pulse (Heart Rate) 88 /min [facility] 05-14-2017 12:46-0500 Pulse Oximetry 98 % [facility] 05-14-2017 12:46-0500 Respiratory Rate 18 /min [facility] 05-14-2017 12:46-0500 Weight 74.84 kg [facility] 05-14-2017 11:46-0500 BMI (Body Mass Index) 29.23 kg/m2 [facility] 05-14-2017 11:46-0500 Body Temperature 98.2 [degF] [facility] 05-14-2017 11:46-0500 BP Diastolic 80 mm[Hg] [facility] 05-14-2017 11:46-0500 BP Systolic 118 mm[Hg] [facility] 05-14-2017 11:46-0500 BSA (Body Surface Area) 1.82 m2 [facility] 05-14-2017 11:46-0500 Height 160.02 cm [facility] 05-14-2017 11:46-0500 Pulse (Heart Rate) 88 /min [facility] 05-14-2017 11:46-0500 Pulse Oximetry 98 % [facility] 05-14-2017 11:46-0500 Respiratory Rate 18 /min [facility] 05-14-2017 11:46-0500 Weight 74.84 kg [facility] 04-18-2017 17:33-0500 BMI (Body Mass Index) 29.25 kg/m2 [facility] 04-18-2017 17:33-0500 Body Temperature 97.5 [degF] [facility] 04-18-2017 17:33-0500 BP Diastolic 60 mm[Hg] [facility] 04-18-2017 17:33-0500 BP Systolic 94 mm[Hg] [facility] 04-18-2017 17:33-0500 BSA (Body Surface Area) 1.82 m2 [facility] 04-18-2017 17:33-0500 Height 160.02 cm [facility] 04-18-2017 17:33-0500 Pulse (Heart Rate) 48 /min [facility] rs [facility] 04-18-2017 17:33-0500 Pulse Oximetry 97 % [facility] 04-18-2017 17:33-0500 Respiratory Rate 18 /min [facility] 04-18-2017 17:33-0500 Weight 74.9 kg [facility] 04-18-2017 16:33-0500 BMI (Body Mass Index) 29.25 kg/m2 [facility] 04-18-2017 16:33-0500 Body Temperature 97.5 [degF] [facility] 04-18-2017 16:33-0500 BP Diastolic 60 mm[Hg] [facility] 04-18-2017 16:33-0500 BP Systolic 94 mm[Hg] [facility] 04-18-2017 16:33-0500 BSA (Body Surface Area) 1.82 m2 [facility] 04-18-2017 16:33-0500 Height 160.02 cm [facility] 04-18-2017 16:33-0500 Pulse (Heart Rate) 48 /min [facility] rs [facility] 04-18-2017 16:33-0500 Pulse Oximetry 97 % [facility] 04-18-2017 16:33-0500 Respiratory Rate 18 /min [facility] 04-18-2017 16:33-0500 Weight 74.9 kg [facility] 03-07-2017 17:07-0400 BMI (Body Mass Index) 29.25 kg/m2 [facility] 03-07-2017 17:07-0400 Body Temperature 98.7 [degF] [facility] 03-07-2017 17:07-0400 BP Diastolic 68 mm[Hg] [facility] 03-07-2017 17:07-0400 BP Systolic 100 mm[Hg] [facility] 03-07-2017 17:07-0400 BSA (Body Surface Area) 1.82 m2 [facility] 03-07-2017 17:07-0400 Height 160.02 cm [facility] 03-07-2017 17:07-0400 Pulse (Heart Rate) 65 /min [facility] 03-07-2017 17:07-0400 Pulse Oximetry 100 % [facility] 03-07-2017 17:07-0400 Respiratory Rate 18 /min [facility] 03-07-2017 17:07-0400 Weight 74.9 kg [facility] 03-07-2017 16:07-0400 BMI (Body Mass Index) 29.25 kg/m2 [facility] 03-07-2017 16:07-0400 Body Temperature 98.7 [degF] [facility] 03-07-2017 16:07-0400 BP Diastolic 68 mm[Hg] [facility] 03-07-2017 16:07-0400 BP Systolic 100 mm[Hg] [facility] 03-07-2017 16:07-0400 BSA (Body Surface Area) 1.82 m2 [facility] 03-07-2017 16:07-0400 Height 160.02 cm [facility] 03-07-2017 16:07-0400 Pulse (Heart Rate) 65 /min [facility] 03-07-2017 16:07-0400 Pulse Oximetry 100 % [facility] 03-07-2017 16:07-0400 Respiratory Rate 18 /min [facility] 03-07-2017 16:07-0400 Weight 74.9 kg [facility] 03-05-2017 16:29-0400 BMI (Body Mass Index) 29.1 kg/m2 [facility] 03-05-2017 16:29-0400 Body Temperature 97.6 [degF] [facility] 03-05-2017 16:29-0400 BP Diastolic 60 mm[Hg] [facility] 03-05-2017 16:29-0400 BP Systolic 102 mm[Hg] [facility] 03-05-2017 16:29-0400 BSA (Body Surface Area) 1.82 m2 [facility] 03-05-2017 16:29-0400 Height 160.02 cm [facility] 03-05-2017 16:29-0400 Pulse (Heart Rate) 60 /min [facility] rs [facility] 03-05-2017 16:29-0400 Pulse Oximetry 99 % [facility] 03-05-2017 16:29-0400 Respiratory Rate 18 /min [facility] 03-05-2017 16:29-0400 Weight 74.5 kg [facility] 03-05-2017 15:29-0400 BMI (Body Mass Index) 29.1 kg/m2 [facility] 03-05-2017 15:29-0400 Body Temperature 97.6 [degF] [facility] 03-05-2017 15:29-0400 BP Diastolic 60 mm[Hg] [facility] 03-05-2017 15:29-0400 BP Systolic 102 mm[Hg] [facility] 03-05-2017 15:29-0400 BSA (Body Surface Area) 1.82 m2 [facility] 03-05-2017 15:29-0400 Height 160.02 cm [facility] 03-05-2017 15:29-0400 Pulse (Heart Rate) 60 /min [facility] 03-05-2017 15:29-0400 Pulse Oximetry 99 % [facility] 03-05-2017 15:29-0400 Respiratory Rate 18 /min [facility] 03-05-2017 15:29-0400 Weight 74.5 kg [facility] 01-01-2017 11:52-0400 BMI (Body Mass Index) 28.59 kg/m2 [facility] 01-01-2017 11:52-0400 Body Temperature 97.5 [degF] [facility] 01-01-2017 11:52-0400 BP Diastolic 69 mm[Hg] [facility] 01-01-2017 11:52-0400 BP Systolic 114 mm[Hg] [facility] 01-01-2017 11:52-0400 BSA (Body Surface Area) 1.8 m2 [facility] 01-01-2017 11:52-0400 Height 160.02 cm [facility] 01-01-2017 11:52-0400 Pulse (Heart Rate) 61 /min [facility] 01-01-2017 11:52-0400 Pulse Oximetry 99 % [facility] 01-01-2017 11:52-0400 Respiratory Rate 20 /min [facility] 01-01-2017 11:52-0400 Weight 73.2 kg [facility] 01-01-2017 10:52-0400 BMI (Body Mass Index) 28.59 kg/m2 [facility] 01-01-2017 10:52-0400 Body Temperature 97.5 [degF] [facility] 01-01-2017 10:52-0400 BP Diastolic 69 mm[Hg] [facility] 01-01-2017 10:52-0400 BP Systolic 114 mm[Hg] [facility] 01-01-2017 10:52-0400 BSA (Body Surface Area) 1.8 m2 [facility] 01-01-2017 10:52-0400 Height 160.02 cm [facility] 01-01-2017 10:52-0400 Pulse (Heart Rate) 61 /min [facility] 01-01-2017 10:52-0400 Pulse Oximetry 99 % [facility] 01-01-2017 10:52-0400 Respiratory Rate 20 /min [facility] 01-01-2017 10:52-0400 Weight 73.2 kg [facility] 12-06-2016 12:51-0400 BMI (Body Mass Index) 28.79 kg/m2 [facility] 12-06-2016 12:51-0400 Body Temperature 97.5 [degF] [facility] 12-06-2016 12:51-0400 BP Diastolic 80 mm[Hg] [facility] 12-06-2016 12:51-0400 BP Systolic 104 mm[Hg] [facility] 12-06-2016 12:51-0400 BSA (Body Surface Area) 1.81 m2 [facility] 12-06-2016 12:51-0400 Height 160.02 cm [facility] 12-06-2016 12:51-0400 P[facility] ([facility] Rate) 81 /[facility] 12-06-2016 12:51-0400 Pulse Oximetry 98 % [facility] 12-06-2016 12:51-0400 Respiratory Rate 18 /min [facility] 12-06-2016 12:51-0400 Weight 73.71 kg [facility] 12-06-2016 11:51-0400 BMI (Body Mass Index) 28.79 kg/m2 [facility] 12-06-2016 11:51-0400 Body Temperature 97.5 [degF] [facility] 12-06-2016 11:51-0400 BP Diastolic 80 mm[Hg] [facility] 12-06-2016 11:51-0400 BP Systolic 104 mm[Hg] [facility] 12-06-2016 11:51-0400 BSA (Body Surface Area) 1.81 m2 [facility] 12-06-2016 11:51-0400 Height 160.02 cm [facility] 12-06-2016 11:51-0400 Pulse (Heart Rate) 81 /min [facility] rs [facility] 12-06-2016 11:51-0400 Pulse Oximetry 98 % [facility] 12-06-2016 11:51-0400 Respiratory Rate 18 /min [facility] 12-06-2016 11:51-0400 Weight 73.71 kg [facility] 11-06-2016 14:21-0400 BMI (Body Mass Index) 29.58 kg/m2 [facility] 11-06-2016 14:21-0400 Body Temperature 97.5 [degF] [facility] 11-06-2016 14:21-0400 BP Diastolic 76 mm[Hg] [facility] 11-06-2016 14:21-0400 BP Systolic 117 mm[Hg] [facility] 11-06-2016 14:21-0400 BSA (Body Surface Area) 1.83 m2 [facility] 11-06-2016 14:21-0400 Height 160.02 cm [facility] 11-06-2016 14:21-0400 Pulse (Heart Rate) 64 /min [facility] 11-06-2016 14:21-0400 Pulse Oximetry 97 % [facility] 11-06-2016 14:21-0400 Respiratory Rate 18 /min [facility] 11-06-2016 14:21-0400 Weight 75.75 kg [facility] 11-06-2016 13:21-0400 BMI (Body Mass Index) 29.58 kg/m2 [facility] 11-06-2016 13:21-0400 Body Temperature 97.5 [degF] [facility] 11-06-2016 13:21-0400 BP Diastolic 76 mm[Hg] [facility] 11-06-2016 13:21-0400 BP Systolic 117 mm[Hg] [facility] 11-06-2016 13:21-0400 BSA (Body Surface Area) 1.83 m2 [facility] 11-06-2016 13:21-0400 Height 160.02 cm [facility] 11-06-2016 13:21-0400 Pulse (Heart Rate) 64 /min [facility] 11-06-2016 13:21-0400 Pulse Oximetry 97 % [facility] 11-06-2016 13:21-0400 Respiratory Rate 18 /min [facility] 11-06-2016 13:21-0400 Weight 75.75 kg [facility] 09-27-2016 17:31-0400 BMI (Body Mass Index) 28.67 kg/m2 [facility] 09-27-2016 17:31-0400 Body Temperature 98.2 [degF] [facility] 09-27-2016 17:31-0400 BP Diastolic 64 mm[Hg] [facility] 09-27-2016 17:31-0400 BP Systolic 105 mm[Hg] [facility] 09-27-2016 17:31-0400 BSA (Body Surface Area) 1.85 m2 [facility] 09-27-2016 17:31-0400 Height 162.56 cm [facility] 09-27-2016 17:31-0400 Pulse (Heart Rate) 102 /min [facility] 09-27-2016 17:31-0400 Pulse Oximetry 95 % [facility] 09-27-2016 17:31-0400 Respiratory Rate 18 /min [facility] 09-27-2016 17:31-0400 Weight 75.75 kg [facility] 09-27-2016 16:31-0400 BMI (Body Mass Index) 28.67 kg/m2 [facility] 09-27-2016 16:31-0400 Body Temperature 98.2 [degF] [facility] 09-27-2016 16:31-0400 BP Diastolic 64 mm[Hg] [facility] 09-27-2016 16:31-0400 BP Systolic 105 mm[Hg] [facility] 09-27-2016 16:31-0400 BSA (Body Surface Area) 1.85 m2 [facility] 09-27-2016 16:31-0400 Height 162.56 cm [facility] 09-27-2016 16:31-0400 Pulse (Heart Rate) 102 /min [facility] 09-27-2016 16:31-0400 Pulse Oximetry 95 % [facility] 09-27-2016 16:31-0400 Respiratory Rate 18 /min [facility] 09-27-2016 16:31-0400 Weight 75.75 kg [facility] 08-21-2016 13:22-0400 BMI (Body Mass Index) 28.41 kg/m2 [facility] 08-21-2016 13:22-0400 Body Temperature 97.7 [degF] [facility] 08-21-2016 13:22-0400 BP Diastolic 80 mm[Hg] [facility] 08-21-2016 13:22-0400 BP Systolic 110 mm[Hg] [facility] 08-21-2016 13:22-0400 BSA (Body Surface Area) 1.84 m2 [facility] 08-21-2016 13:22-0400 Height 162.56 cm [facility] 08-21-2016 13:22-0400 Pulse (Heart Rate) 58 /min [facility] 08-21-2016 13:22-0400 Pulse Oximetry 97 % [facility] 08-21-2016 13:22-0400 Respiratory Rate 18 /min [facility] 08-21-2016 13:22-0400 Weight 75.07 kg [facility] 08-21-2016 12:22-0400 BMI (Body Mass Index) 28.41 kg/m2 [facility] 08-21-2016 12:22-0400 Body Temperature 97.7 [degF] [facility] 08-21-2016 12:22-0400 BP Diastolic 80 mm[Hg] [facility] 08-21-2016 12:22-0400 BP Systolic 110 mm[Hg] [facility] 08-21-2016 12:22-0400 BSA (Body Surface Area) 1.84 m2 [facility] 08-21-2016 12:22-0400 Height 162.56 cm [facility] 08-21-2016 12:22-0400 Pulse (Heart Rate) 58 /min [facility] 08-21-2016 12:22-0400 Pulse Oximetry 97 % [facility] 08-21-2016 12:22-0400 Respiratory Rate 18 /min [facility] 08-21-2016 12:22-0400 Weight 75.07 kg [facility] 06-26-2016 16:13-0500 BMI (Body Mass Index) 28.9 kg/m2 [facility] 06-26-2016 16:13-0500 Body Temperature 97 [degF] [facility] 06-26-2016 16:13-0500 BP Diastolic 80 mm[Hg] [facility] 06-26-2016 16:13-0500 BP Systolic 106 mm[Hg] [facility] 06-26-2016 16:13-0500 BSA (Body Surface Area) 1.86 m2 [facility] 06-26-2016 16:13-0500 Height 162.56 cm [facility] 06-26-2016 16:13-0500 Pulse (Heart Rate) 61 /min [facility] 06-26-2016 16:13-0500 Pulse Oximetry 97 % [facility] 06-26-2016 16:13-0500 Respiratory Rate 18 /min [facility] 06-26-2016 16:13-0500 Weight 76.37 kg [facility] 06-26-2016 15:13-0500 BMI (Body Mass Index) 28.9 kg/m2 [facility] 06-26-2016 15:13-0500 Body Temperature 97 [degF] [facility] 06-26-2016 15:13-0500 BP Diastolic 80 mm[Hg] [facility] 06-26-2016 15:13-0500 BP Systolic 106 mm[Hg] [facility] 06-26-2016 15:13-0500 BSA (Body Surface Area) 1.86 m2 [facility] 06-26-2016 15:13-0500 Height 162.56 cm [facility] 06-26-2016 15:13-0500 Pulse (Heart Rate) 61 /min [facility] 06-26-2016 15:13-0500 Pulse Oximetry 97 % [facility] 06-26-2016 15:13-0500 Respiratory Rate 18 /min [facility] 06-26-2016 15:13-0500 Weight 76.37 kg [facility] 06-12-2016 13:32-0500 BMI (Body Mass Index) 27.85 kg/m2 [facility] 06-12-2016 13:32-0500 Body Temperature 97.5 [degF] [facility] 06-12-2016 13:32-0500 BP Diastolic 68 mm[Hg] [facility] 06-12-2016 13:32-0500 BP Systolic 100 mm[Hg] [facility] 06-12-2016 13:32-0500 BSA (Body Surface Area) 1.82 m2 [facility] 06-12-2016 13:32-0500 Height 162.56 cm [facility] 06-12-2016 13:32-0500 Pulse (Heart Rate) 68 /min [facility] 06-12-2016 13:32-0500 Pulse Oximetry 98 % [facility] 06-12-2016 13:32-0500 Respiratory Rate 18 /min [facility] 06-12-2016 13:32-0500 Weight 73.6 kg [facility] 06-12-2016 12:32-0500 BMI (Body Mass Index) 27.85 kg/m2 [facility] 06-12-2016 12:32-0500 Body Temperature 97.5 [degF] [facility] 06-12-2016 12:32-0500 BP Diastolic 68 mm[Hg] [facility] 06-12-2016 12:32-0500 BP Systolic 100 mm[Hg] [facility] 06-12-2016 12:32-0500 BSA (Body Surface Area) 1.82 m2 [facility] 06-12-2016 12:32-0500 Height 162.56 cm [facility] 06-12-2016 12:32-0500 Pulse (Heart Rate) 68 /min [facility] 06-12-2016 12:32-0500 Pulse Oximetry 98 % [facility] 06-12-2016 12:32-0500 Respiratory Rate 18 /min [facility] 06-12-2016 12:32-0500 Weight 73.6 kg [facility] 05-22-2016 15:51-0500 BMI (Body Mass Index) 27.81 kg/m2 [facility] 05-22-2016 15:51-0500 Body Temperature 98 [degF] [facility] 05-22-2016 15:51-0500 BP Diastolic 67 mm[Hg] [facility] 05-22-2016 15:51-0500 BP Systolic 104 mm[Hg] [facility] 05-22-2016 15:51-0500 BSA (Body Surface Area) 1.82 m2 [facility] 05-22-2016 15:51-0500 Height 162.56 cm [facility] 05-22-2016 15:51-0500 Pulse (Heart Rate) 89 /min [facility] 05-22-2016 15:51-0500 Pulse Oximetry 99 % [facility] 05-22-2016 15:51-0500 Respiratory Rate 18 /min [facility] 05-22-2016 15:51-0500 Weight 73.48 kg [facility] 05-22-2016 14:51-0500 BMI (Body Mass Index) 27.81 kg/m2 [facility] 05-22-2016 14:51-0500 Body Temperature 98 [degF] [facility] 05-22-2016 14:51-0500 BP Diastolic 67 mm[Hg] [facility] 05-22-2016 14:51-0500 BP Systolic 104 mm[Hg] [facility] 05-22-2016 14:51-0500 BSA (Body Surface Area) 1.82 m2 [facility] 05-22-2016 14:51-0500 Height 162.56 cm [facility] 05-22-2016 14:51-0500 Pulse (Heart Rate) 89 /min [facility] 05-22-2016 14:51-0500 Pulse Oximetry 99 % [facility] 05-22-2016 14:51-0500 Respiratory Rate 18 /min [facility] 05-22-2016 14:51-0500 Weight 73.48 kg [facility] 04-10-2016 12:54-0500 BMI (Body Mass Index) 27.7 kg/m2 [facility] 04-10-2016 12:54-0500 Body Temperature 97.8 [degF] [facility] 04-10-2016 12:54-0500 BP Diastolic 74 mm[Hg] [facility] 04-10-2016 12:54-0500 BP Systolic 110 mm[Hg] [facility] 04-10-2016 12:54-0500 BSA (Body Surface Area) 1.82 m2 [facility] 04-10-2016 12:54-0500 Height 162.56 cm [facility] 04-10-2016 12:54-0500 Pulse (Heart Rate) 58 /min [facility] 04-10-2016 12:54-0500 Pulse Oximetry 98 % [facility] 04-10-2016 12:54-0500 Respiratory Rate 20 /min [facility] 04-10-2016 12:54-0500 Weight 73.2 kg [facility] 04-10-2016 11:54-0500 BMI (Body Mass Index) 27.7 kg/m2 [facility] 04-10-2016 11:54-0500 Body Temperature 97.8 [degF] [facility] 04-10-2016 11:54-0500 BP Diastolic 74 mm[Hg] [facility] 04-10-2016 11:54-0500 BP Systolic 110 mm[Hg] [facility] 04-10-2016 11:54-0500 BSA (Body Surface Area) 1.82 m2 [facility] 04-10-2016 11:54-0500 Height 162.56 cm [facility] 04-10-2016 11:54-0500 Pulse (Heart Rate) 58 /min [facility] 04-10-2016 11:54-0500 Pulse Oximetry 98 % [facility] 04-10-2016 11:54-0500 Respiratory Rate 20 /min [facility] 04-10-2016 11:54-0500 Weight 73.2 kg [facility] 03-20-2016 13:39-0400 BMI (Body Mass Index) 27.83 kg/m2 [facility] 03-20-2016 13:39-0400 Body Temperature 98.6 [degF] [facility] 03-20-2016 13:39-0400 BP Diastolic 80 mm[Hg] [facility] 03-20-2016 13:39-0400 BP Systolic 122 mm[Hg] [facility] 03-20-2016 13:39-0400 BSA (Body Surface Area) 1.82 m2 [facility] 03-20-2016 13:39-0400 Height 162.56 cm [facility] 03-20-2016 13:39-0400 Pulse (Heart Rate) 69 /min [facility] 03-20-2016 13:39-0400 Pulse Oximetry 98 % [facility] 03-20-2016 13:39-0400 Respiratory Rate 18 /min [facility] 03-20-2016 13:39-0400 Weight 73.54 kg [facility] 03-20-2016 12:39-0400 BMI (Body Mass Index) 27.83 kg/m2 [facility] 03-20-2016 12:39-0400 Body Temperature 98.6 [degF] [facility] 03-20-2016 12:39-0400 BP Diastolic 80 mm[Hg] [facility] 03-20-2016 12:39-0400 BP Systolic 122 mm[Hg] [facility] 03-20-2016 12:39-0400 BSA (Body Surface Area) 1.82 m2 [facility] 03-20-2016 12:39-0400 Height 162.56 cm [facility] 03-20-2016 12:39-0400 Pulse (Heart Rate) 69 /min [facility] 03-20-2016 12:39-0400 Pulse Oximetry 98 % [facility] 03-20-2016 12:39-0400 Respiratory Rate 18 /min [facility] 03-20-2016 12:39-0400 Weight 73.54 kg [facility] 03-09-2016 14:12-0400 BMI (Body Mass Index) 27.64 kg/m2 [facility] 03-09-2016 14:12-0400 Body Temperature 99.2 [degF] [facility] 03-09-2016 14:12-0400 BP Diastolic 66 mm[Hg] [facility] 03-09-2016 14:12-0400 BP Systolic 102 mm[Hg] [facility] 03-09-2016 14:12-0400 BSA (Body Surface Area) 1.82 m2 [facility] 03-09-2016 14:12-0400 Height 162.56 cm [facility] 03-09-2016 14:12-0400 Pulse (Heart Rate) 70 /min [facility] 03-09-2016 14:12-0400 Pulse Oximetry 97 % [facility] 03-09-2016 14:12-0400 Respiratory Rate 18 /min [facility] 03-09-2016 14:12-0400 Weight 73.03 kg [facility] 03-09-2016 13:12-0400 BMI (Body Mass Index) 27.64 kg/m2 [facility] 03-09-2016 13:12-0400 Body Temperature 99.2 [degF] [facility] 03-09-2016 13:12-0400 BP Diastolic 66 mm[Hg] [facility] 03-09-2016 13:12-0400 BP Systolic 102 mm[Hg] [facility] 03-09-2016 13:12-0400 BSA (Body Surface Area) 1.82 m2 [facility] 03-09-2016 13:12-0400 Height 162.56 cm [facility] 03-09-2016 13:12-0400 Pulse (Heart Rate) 70 /min [facility] 03-09-2016 13:12-0400 Pulse Oximetry 97 % [facility] 03-09-2016 13:12-0400 Respiratory Rate 18 /min [facility] 03-09-2016 13:12-0400 Weight 73.03 kg [facility] 03-06-2016 18:13-0400 BMI (Body Mass Index) 27.72 kg/m2 [facility] 03-06-2016 18:13-0400 Body Temperature 98.6 [degF] [facility] 03-06-2016 18:13-0400 BP Diastolic 70 mm[Hg] [facility] 03-06-2016 18:13-0400 BP Systolic 107 mm[Hg] [facility] 03-06-2016 18:13-0400 BSA (Body Surface Area) 1.82 m2 [facility] 03-06-2016 18:13-0400 Height 162.56 cm [facility] 03-06-2016 18:13-0400 Pulse (Heart Rate) 65 /min [facility] 03-06-2016 18:13-0400 Pulse Oximetry 97 % [facility] 03-06-2016 18:13-0400 Respiratory Rate 18 /min [facility] 03-06-2016 18:13-0400 Weight 73.26 kg [facility] 03-06-2016 17:13-0400 BMI (Body Mass Index) 27.72 kg/m2 [facility]-2016 17:13-0400 Body Temperature 98.6 [degF] [facility] 03-06-2016 17:13-0400 BP Diastolic 70 mm[Hg] [facility] 03-06-2016 17:13-0400 BP Systolic 107 mm[Hg] [facility] 03-06-2016 17:13-0400 BSA (Body Surface Area) 1.82 m2 [facility] 03-06-2016 17:13-0400 Height 162.56 cm [facility] 03-06-2016 17:13-0400 Pulse (Heart Rate) 65 /min [facility] 03-06-2016 17:13-0400 Pulse Oximetry 97 % [facility] 03-06-2016 17:13-0400 Respiratory Rate 18 /min [facility] 03-06-2016 17:13-0400 Weight 73.26 kg [facility] 02-21-2016 13:12-0400 BMI (Body Mass Index) 28.15 kg/m2 [facility] 02-21-2016 13:12-0400 Body Temperature 97.2 [degF] [facility] 02-21-2016 13:12-0400 BP Diastolic 74 mm[Hg] [facility] 02-21-2016 13:12-0400 BP Systolic 118 mm[Hg] [facility] 02-21-2016 13:12-0400 BSA (Body Surface Area) 1.83 m2 [facility] 02-21-2016 13:12-0400 Height 162.56 cm [facility] 02-21-2016 13:12-0400 Pulse (Heart Rate) 63 /min [facility] 02-21-2016 13:12-0400 Pulse Oximetry 99 % [facility] 02-21-2016 13:12-0400 Respiratory Rate 18 /min [facility] 02-21-2016 13:12-0400 Weight 74.39 kg [facility] 02-21-2016 12:12-0400 BMI (Body Mass Index) 28.15 kg/m2 [facility] 02-21-2016 12:12-0400 Body Temperature 97.2 [degF] [facility] 02-21-2016 12:12-0400 BP Diastolic 74 mm[Hg] [facility] 02-21-2016 12:12-0400 BP Systolic 118 mm[Hg] [facility] 02-21-2016 12:12-0400 BSA (Body Surface Area) 1.83 m2 [facility] 02-21-2016 12:12-0400 Height 162.56 cm [facility] 02-21-2016 12:12-0400 Pulse (Heart Rate) 63 /min [facility] 02-21-2016 12:12-0400 Pulse Oximetry 99 % [facility] 02-21-2016 12:12-0400 Respiratory Rate 18 /min [facility] 02-21-2016 12:12-0400 Weight 74.39 kg [facility] 01-11-2016 13:02-0400 BMI (Body Mass Index) 28.34 kg/m2 [facility] 01-11-2016 13:02-0400 Body Temperature 98.2 [degF] [facility] 01-11-2016 13:02-0400 BP Diastolic 74 mm[Hg] [facility] 01-11-2016 13:02-0400 BP Systolic 126 mm[Hg] [facility] 01-11-2016 13:02-0400 BSA (Body Surface Area) 1.84 m2 [facility] 01-11-2016 13:02-0400 Height 162.56 cm [facility] 01-11-2016 13:02-0400 [facility] 69 [facility] 01-11-2016 13:02-0400 Pulse Oximetry 97 % [facility] 01-11-2016 13:02-0400 Respiratory Rate 18 /min [facility] 01-11-2016 13:02-0400 Weight 74.9 kg [facility] 01-11-2016 12:02-0400 BMI (Body Mass Index) 28.34 kg/m2 [facility] 01-11-2016 12:02-0400 Body Temperature 98.2 [degF] [facility] 01-11-2016 12:02-0400 BP Diastolic 74 mm[Hg] [facility] 01-11-2016 12:02-0400 BP Systolic 126 mm[Hg] [facility] 01-11-2016 12:02-0400 BSA (Body Surface Area) 1.84 m2 [facility] 01-11-2016 12:02-0400 Height 162.56 cm [facility] 01-11-2016 12:02-0400 Pulse (Heart Rate) 69 /min [facility] 01-11-2016 12:02-0400 Pulse Oximetry 97 % [facility] 01-11-2016 12:02-0400 Respiratory Rate 18 /min [facility] 01-11-2016 12:02-0400 Weight 74.9 kg [facility] 12-08-2015 11:37-0400 BMI (Body Mass Index) 28.52 kg/m2 [facility] 12-08-2015 11:37-0400 BMI (Body Mass Index) 28.51 kg/m2 [facility] 12-08-2015 11:37-0400 Body Temperature 98.1 [degF] [facility] 12-08-2015 11:37-0400 BP Diastolic 60 mm[Hg] [facility] 12-08-2015 11:37-0400 BP Systolic 110 mm[Hg] [facility] 12-08-2015 11:37-0400 BSA (Body Surface Area) 1.84 m2 [facility] 12-08-2015 11:37-0400 Height 162.56 cm [facility] 12-08-2015 11:37-0400 Pulse (Heart Rate) 100 /min [facility] 12-08-2015 11:37-0400 Pulse Oximetry 98 % [facility] 12-08-2015 11:37-0400 Respiratory Rate 18 /min [facility] 12-08-2015 11:37-0400 Weight 75.35 kg [facility] 12-08-2015 10:37-0400 BMI (Body Mass Index) 28.52 kg/m2 [facility] 12-08-2015 10:37-0400 BMI (Body Mass Index) 28.51 kg/m2 [facility] 12-08-2015 10:37-0400 Body Temperature 98.1 [degF] [facility] 12-08-2015 10:37-0400 BP Diastolic 60 mm[Hg] [facility] 12-08-2015 10:37-0400 BP Systolic 110 mm[Hg] [facility] 12-08-2015 10:37-0400 BSA (Body Surface Area) 1.84 m2 [facility] 12-08-2015 10:37-0400 Height 162.56 cm [facility] 12-08-2015 10:37-0400 Pulse (Heart Rate) 100 /min [facility] 12-08-2015 10:37-0400 Pulse Oximetry 98 % [facility] 12-08-2015 10:37-0400 Respiratory Rate 18 /min [facility] 12-08-2015 10:37-0400 Weight 75.35 kg [facility] 10-25-2015 11:43-0400 BMI (Body Mass Index) 28.24 kg/m2 [facility] 10-25-2015 11:43-0400 Body Temperature 98.2 [degF] [facility] 10-25-2015 11:43-0400 BP Diastolic 70 mm[Hg] [facility] 10-25-2015 11:43-0400 BP Systolic 110 mm[Hg] [facility] 10-25-2015 11:43-0400 BSA (Body Surface Area) 1.84 m2 [facility] 10-25-2015 11:43-0400 Height 162.56 cm [facility] 10-25-2015 11:43-0400 Pulse (Heart Rate) 55 /min [facility] 10-25-2015 11:43-0400 Pulse Oximetry 99 % [facility] 10-25-2015 11:43-0400 Respiratory Rate 18 /min [facility] 10-25-2015 11:43-0400 Weight 74.62 kg [facility] 10-25-2015 10:43-0400 BMI (Body Mass Index) 28.24 kg/m2 [facility] 10-25-2015 10:43-0400 Body Temperature 98.2 [degF] [facility] 10-25-2015 10:43-0400 BP Diastolic 70 mm[Hg] [facility] 10-25-2015 10:43-0400 BP Systolic 110 mm[Hg] [facility] 10-25-2015 10:43-0400 BSA (Body Surface Area) 1.84 m2 [facility] 10-25-2015 10:43-0400 Height 162.56 cm [facility] 10-25-2015 10:43-0400 Pulse (Heart Rate) 55 /min [facility] 10-25-2015 10:43-0400 Pulse Oximetry 99 % [facility] 10-25-2015 10:43-0400 Respiratory Rate 18 /min [facility] 10-25-2015 10:43-0400 Weight 74.62 kg [facility] 09-22-2015 11:19-0400 BMI (Body Mass Index) 30.22 kg/m2 [facility] 09-22-2015 11:19-0400 Body Temperature 98.6 [degF] [facility] 09-22-2015 11:19-0400 BP Diastolic 78 mm[Hg] [facility] 09-22-2015 11:19-0400 BP Systolic 132 mm[Hg] [facility] 09-22-2015 11:19-0400 BSA (Body Surface Area) 1.81 m2 [facility] 09-22-2015 11:19-0400 Height 157.48 cm [facility] 09-22-2015 11:19-0400 Pulse (Heart Rate) 86 /min [facility] 09-22-2015 11:19-0400 Pulse Oximetry 98 % [facility] 09-22-2015 11:19-0400 Respiratory Rate 18 /min [facility] 09-22-2015 11:19-0400 Weight 74.96 kg [facility] 09-22-2015 10:19-0400 BMI (Body Mass Index) 30.22 kg/m2 [facility] 09-22-2015 10:19-0400 Body Temperature 98.6 [degF] [facility] 09-22-2015 10:19-0400 BP Diastolic 78 mm[Hg] [facility] 09-22-2015 10:19-0400 BP Systolic 132 mm[Hg] [facility] 09-22-2015 10:19-0400 BSA (Body Surface Area) 1.81 m2 [facility] 09-22-2015 10:19-0400 Height 157.48 cm [facility] 09-22-2015 10:19-0400 Pulse (Heart Rate) 86 /min [facility] 09-22-2015 10:19-0400 Pulse Oximetry 98 % [facility] 09-22-2015 10:19-0400 Respiratory Rate 18 /min [facility] 09-22-2015 10:19-0400 Weight 74.96 kg [facility] 09-08-2015 11:54-0400 BMI (Body Mass Index) 30.04 kg/m2 [facility] 09-08-2015 11:54-0400 BP Diastolic 70 mm[Hg] [facility] 09-08-2015 11:54-0400 BP Systolic 118 mm[Hg] [facility] 09-08-2015 11:54-0400 BSA (Body Surface Area) 1.81 m2 [facility] 09-08-2015 11:54-0400 Height 157.48 cm [facility] 09-08-2015 11:54-0400 Pulse (Heart Rate) 75 /min [facility] 09-08-2015 11:54-0400 Pulse Oximetry 97 % [facility] 09-08-2015 11:54-0400 Respiratory Rate 18 /min [facility] 09-08-2015 11:54-0400 Weight 74.5 kg [facility] 09-08-2015 10:54-0400 BMI (Body Mass Index) 30.04 kg/m2 [facility] 09-08-2015 10:54-0400 BP Diastolic 70 mm[Hg] [facility] 09-08-2015 10:54-0400 BP Systolic 118 mm[Hg] [facility] 09-08-2015 10:54-0400 BSA (Body Surface Area) 1.81 m2 [facility] 09-08-2015 10:54-0400 Height 157.48 cm [facility] 09-08-2015 10:54-0400 Pulse (Heart Rate) 75 /min [facility] 09-08-2015 10:54-0400 Pulse Oximetry 97 % [facility] 09-08-2015 10:54-0400 Respiratory Rate 18 /min [facility] 09-08-2015 10:54-0400 Weight 74.5 kg [facility] Encounters Encounter Date Encounter Type Care Provider Facility Start: 12-17-2024 End: 12-19-2024 [facility] Start: 12-17-2024 End: 12-19-2024 Subsequent hospital visit by physician Héctor Turner MD Work Phone: [facility] Non-Invasive Cardiology Comment on above: Abnormal EKG; RBBB; History of DE (myocardial infarction); Tobacco abuse counseling Start: 05-31-2024 ambulatory [facility] Start: 04-23-2024 End: 04-24-2024 Emergency department patient visit Sami Jasso MD Work Phone: [facility] ED Comment on above: Transportation unava ilable (Primary Dx) Start: 04-23-2024 End: 04-23-2024 Emergency department patient visit Alberta Medeiros MD Work Phone: [facility] ED Comment on above: Stroke-like symptom [...] she had an PT screening there at [facility]; she replied she is going to look into and contact me back re: OP PT.) Start: 02-25-2024 End: 02-25-2024 Bamboo flowsheet Lucy Gilbert DO Work Phone: [facility] Start: 02-25-2024 End: 02-25-2024 Bamboo flowsheet Christopher Ofelia DO Work Phone: [facility] Start: 02-25-2024 End: 02-25-2024 Patient encounter procedure Christopher Ofelia DO Work Phone: [facility] Comment on above: Lumbar radiculopathy (Primary Dx) Start: 02-25-2024 End: 02-25-2024 ambulatory CHRISTOPHER OFELIA Not Available Start: 02-18-2024 End: 02-18-2024 ambulatory CHRISTOPHER OFELIA Not Available Start: 02-18-2024 End: 02-18-2024 Office outpatient new 45 minutes Christopher Ofelia DO [facility] Comment on above: Gait instability (Pr imary Dx); Tardive dyskinesia; Psychiatric disturbance; [place] use Start: 02-18-2024 End: 02-18-2024 Bamboo flowsheet Christopher Ofelia DO Work Phone: [facility] Start: 02-18-2024 End: 02-18-2024 Bamboo flowsheet Christopher Ofelia DO [facility] Start: 02-11-2024 ambulatory Karla Clark Facility :[facility] Start: 01-27-2024 End: 01-27-2024 General 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: [facility] Work Phone: Start: 01-27-2024 End: 01-27-2024 General Krala Clark INTERNET 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 Work Phone: [facility] Work Phone: Start: 01-27-2024 End: 01-27-2024 FQ visit, estab pt Vida Culp INTERNET 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 Work Phone: [facility] Work Phone: Start: 12-18-2023 Non-patient / Non-visit PALLIATIVE NURSE A french Clark Work Phone: [facility] Work Phone: Start: 12-16-2023 End: 12-24-2023 Evaluation and management of inpatient PALLIATIVE NURSE Karla Clark Work Phone: [facility]-[address] [place] [address] Work Phone: Start: 11-26-2023 Registered Recurring PALLIATIVE NURSE aGry Clark Work Phone: [facility] Start: 11-18-2023 End: 11-18-2023 ambulatory ALANNAH JAMES Not Available Start: 10-04-2023 End: 10-04-2023 FQHC visit, estab pt 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: [facility] Work Phone: Start: 10-04-2023 End: 10-04-2023 General 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: [facility] Work Phone: Start: 10-04-2023 End: 10-04-2023 Patient encounter procedure Karla Clark CNP Work Phone: [facility] Work Phone: Start: 09-27-2023 End: 09-27-2023 ambulatory YANDEL DANIEL Facility:[facility] Start: 09-27-2023 End: 09-27-2023 Patient encounter procedure Yandel Daniel MD Work Phone: Otolaryngology Comment on above: Nontoxic multinodula r goiter (Primary Dx); Thyroid nodule Start: 09-18-2023 End: 09-18-2023 ambulatory ALANNAH JAMES Not Available Start: 08-28-2023 End: 08-28-2023 ambulatory ALANNAH JAMES Not Available Start: 08-20-2023 End: 08-20-2023 Admission to same day surgery center [facility] Start: 08-20-2023 End: 08-20-2023 ambulatory NON STAFF [facility] Work Phone: Start: 08-16-2023 Non-patient / Non-visit [facility] Work Phone: Start: 08-15-2023 End: 08-20-2023 Evaluation and management of inpatient [facility] Work Phone: Start: 08-14-2023 End: 08-14-2023 ambulatory ALANNAH CORDOBANano Not Available Start: 08-14-2023 End: 08-14-2023 ambulatory JOHAN [place] LYNDA Not Available Start: 08-09-2023 Telephone encounter Yandel mccollum MD Work Phone: [facility] [place] Comment on above: Patient Question Start: 07-16-2023 Farrah sifuentes MD Work Phone: [facility] Start: 07-16-2023 Farrah sifuentes MD Work Phone: [facility] Start: 07-16-2023 End: 07-16-2023 Patient encounter procedure Dakota Mack MD Work Phone: [facility] Comment on above: Neoplasm of unspecif ied behavior of bone, soft tissue, and skin (Primary Dx) Start: 07-16-2023 End: 07-16-2023 ambulatory DAKOTA MACK Not Available Start: 06-28-2023 End: 06-28-2023 ambulatory [facility] Facility:[facility] Start: 06-18-2023 End: 06-22-2023 ambulatory [facility] Facility:[facility] Start: 05-30-2023 End: 05-31-2023 ambulatory [facility] Facility:[facility] Start: 05-30-2023 End: 05-30-2023 ambulatory [facility] Start: 05-30-2023 Encounter for other preprocedural examination [facility] Start: 05-22-2023 End: 05-22-2023 Patient encounter procedure 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: [facility] Work Phone: Start: 05-22-2023 End: 05-22-2023 FQHC visit, estab pt 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: [facility] Work Phone: Start: 05-22-2023 End: 05-22-2023 General 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: [facility] Work Phone: Start: 04-11-2023 End: 04-12-2023 ambulatory YANDEL DANIEL Facility:[facility] Start: 03-26-2023 End: 03-28-2023 Evaluation and management of inpatient PALLIATIVE NURSE Karla Clark Work Phone: [facility] Work Phone: Start: 03-26-2023 End: 03-28-2023 observation encounter PALLIATIVE NURSE Karla Clark Work Phone: [facility] Work Phone: Start: 03-11-2023 End: 03-15-2023 Evaluation and management of inpatient RODNEY Clark Work Phone: [facility] Work Phone: Start: 03-11-2023 End: 03-11-2023 Departed Referred RODNEY Clark Work Phone: [facility] Work Phone: Start: 12-12-2022 Office outpatient vi sit 15 minutes [facility] Start: 12-12-2022 End: 12-12-2022 ambulatory PALLIATIVE NURSE Karla Clark Work Phone: [facility] Work Phone: Start: 12-12-2022 End: 12-12-2022 Patient encounter procedure RODNEY Clark Work Phone: [facility] Start: 11-19-2022 End: 02-28-2023 General 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: [facility] Work Phone: Start: 11-19-2022 End: 02-28-2023 FQHC visit, estab pt 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: [facility] Work Phone: Start: 10-31-2022 Postop follow up vis it related to original px [facility] Start: 10-31-2022 End: 10-31-2022 ambulatory PHYSICIAN NO [facility] Work Phone: Start: 10-31-2022 End: 10-31-2022 Patient encounter procedure PHYSICIAN NO [facility] Start: 10-31-2022 End: 10-31-2022 ambulatory [facility] Facility: Start: 2022 End: 2022 ambulatory [facility] Other [employer] Other Start: 2022 Telephone encounter [facility] Start: 10-23-2022 Registered Recurring RODNEY Floresen Work Phone: [facility] Start: 10-05-2022 End: 10-05-2022 ambulatory [facility] Other [employer] Other Start: 10-05-2022 Telephone encounter [facility] Start: 10-03-2022 Postop follow up vis it related to original px [facility] Start: 10-03-2022 End: 10-03-2022 ambulatory PHYSICIAN NO [employer] [place] Other Start: 10-03-2022 End: 10-03-2022 Patient encounter procedure PHYSICIAN NO [facility] Start: 09-18-2022 End: 09-18-2022 FQHC visit, estab pt 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: [facility] Work Phone: Start: 09-18-2022 End: 09-18-2022 General 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: [facility] Work Phone: Start: 09-13-2022 End: 09-14-2022 Admission to same day surgery center PHYSICIAN NO [facility] Start: 09-13-2022 End: 09-14-2022 ambulatory PHYSICIAN NO [facility] Work Phone: Start: 09-11-2022 Telephone encounter [facility] Start: 09-11-2022 End: 09-11-2022 ambulatory PALLIATIVE NURSE Karla Clark Work Phone: [facility] Work Phone: Start: 09-11-2022 End: 09-11-2022 Patient encounter procedure RODNYE Clark Work Phone: [facility] Work Phone: Start: 09-10-2022 FQHC visit new patient [facility] Start: 09-10-2022 End: 09-10-2022 ambulatory [facility] Other [employer] Other Start: 09-10-2022 End: 09-10-2022 Patient encounter procedure DO [facility] Work Phone: [facility] Start: 09-06-2022 End: 09-06-2022 ambulatory MS KARLA CLARK Facility: Start: 08-27-2022 End: 08-27-2022 General Carolin ATWOOD Work Phone: [facility] Work Phone: Start: 08-27-2022 End: 08-27-2022 Adult health examination Karla Floresallegra CROOKS Work Phone: [facility] Work Phone: Start: 08-27-2022 End: 08-27-2022 FQHC visit, estab pt Karla Amber INTERNET 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 Work Phone: [facility] Work Phone: Start: 08-22-2022 End: 08-22-[address] DOCTOR CHAVEZ Facility:[facility] Start: 08-16-2022 End: 08-16-2022 Subsequent hospital visit by physician Karla Clark APRN - INTERNET 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 Work Phone: [facility] Laboratory Comment on above: Cutaneous candidiasi s; Screening for malignant neoplasm of cervix Start: 08-03-2022 End: 08-03-2022 ambulatory REKHA MUNOZ Facility:[facility] Start: 06-18-2022 End: 06-18-2022 FQHC visit, estab pt Karla Amber INTERNET 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 Work Phone: [facility] Work Phone: Start: 03-22-2022 End: 03-22-2022 FQHC visit, estab pt Yin Feliz [facility] Work Phone: [facility] Work Phone: Start: 03-20-2022 End: 03-20-2022 FQHC visit, estab pt Yin Feliz [facility] Work Phone: [facility] Work Phone: Start: 03-06-2022 End: 03-06-2022 Preoperative state [facility] Room [facility] Echocardiograph y Start: 03-06-2022 End: 03-06-2022 Subsequent hospital visit by physician [facility] Echo Room [facility] Echocardiography Comment on above: Pre-operative cleara nce; Abnormal EKG; History of DE (myocardial infarction) Start: 12-20-2021 End: 12-20-2021 FQ visit, estab pt 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: [facility] Work Phone: Start: 11-03-2021 End: 11-03-2021 FQHC visit, estab pt Yin Feliz [facility] Work Phone: [facility] Work Phone: Start: 11-03-2021 End: 11-03-2021 FQ visit, estab pt Yin Feliz [facility] Work Phone: [facility] Work Phone: Start: 09-28-2021 End: 11-03-2021 Pre-admission assessment eDepti Crocker Lorenza [facility] Start: 08-01-2021 End: 08-01-2021 Patient encounter status Karla Clark PALLIATIVE NURSE - INTERNET 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 Work Phone: [facility] Laboratory Start: 08-01-2021 End: 08-03-2021 Subsequent hospital visit by physician [facility] Mri Scanner [facility] Laboratory Comment on above: Pre-procedure lab ex am Breast lump on right side at 4 o'clock position Start: 07-28-2021 End: 07-28-2021 FQ visit, estab pt 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: [facility] Work Phone: Start: 05-08-2021 End: 05-08-2021 Adult health examination 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: [facility] Work Phone: Start: 05-08-2021 End: 05-08-2021 FQHC visit, estab pt 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: [facility] Work Phone: Start: 11-11-2020 End: 11-13-2020 Subsequent hospital visit by physician Mth Gen Radiologist [facility] Mammography Comment on above: History of breast bi opsy Start: 07-21-2020 End: 07-21-2020 Subsequent hospital visit by physician Karla [facility] Laboratory Start: 07-14-2020 End: 07-14-2020 Subsequent hospital visit by physician Karla [facility]OL[facility] Laboratory Start: 07-14-2020 End: 07-14-2020 Subsequent hospital visit by physician Karla RANDOLPH Laboratory Start: 07-08-2020 End: 07-08-2020 Subsequent hospital visit by physician Karla [place] [facility] Start: 06-30-2020 End: 07-02-2020 Subsequent hospital visit by physician Frantz Lab Drawing Room [facility] Laboratory Comment on above: Arrived Hyperprolactinemia ( HCC) Start: 06-17-2020 End: 06-17-2020 Established patient Karla Amber Work Phone: [facility] Work Phone: Start: 06-08-2020 End: 06-10-2020 Subsequent hospital visit by physician Frantz Manuel Radiologist [facility] Ultrasound Comment on above: Abnormal ultrasound of breast; Lesion of breast Start: 06-08-2020 End: 06-10-2020 Subsequent hospital visit by physician Frantz Mammography Room At [facility] Mammography Comment on above: Abnormal mammogram Start: 06-06-2020 End: 06-06-2020 Established patient Karlajulius Floresen Work Phone: [facility] Work Phone: Start: 06-06-2020 End: 06-06-2020 Subsequent hospital visit by physician Karla RANDOLPH Laboratory Start: 05-06-2020 End: 05-06-2020 Patient encounter procedure Karla Amber Work Phone: [facility] Work Phone: Start: 04-04-2020 End: 04-06-2020 Subsequent hospital visit by physician Frantz Ultrasound Room [facility] Ultrasound Comment on above: Abnormal mammogram Start: 03-31-2020 End: 03-31-2020 Subsequent hospital visit by physician Karla [place] [facility] Start: 03-31-2020 End: 03-31-2020 Established patient Karla Clark Work Phone: [facility] Work Phone: Start: 03-14-2020 End: 03-14-2020 Nursing evaluation of patient and report Karla Clark Work Phone: [facility] Work Phone: Start: 03-10-2020 End: 03-10-2020 Subsequent hospital visit by physician Karla Clark [facility] Start: 03-04-2020 End: 03-04-2020 Patient encounter procedure Karla Clark Work Phone: [facility] Work Phone: Start: 02-26-2020 End: 02-26-2020 Patient encounter procedure Karla Clark Work Phone: [facility] Work Phone: Start: 02-26-2020 End: 02-26-2020 Established patient Karla Clark Work Phone: [facility] Work Phone: Start: 11-19-2019 End: 11-19-2019 Patient encounter procedure Carolin Oneill Work Phone: [facility] Work Phone: Start: 11-19-2019 End: 11-19-2019 Telemedicine consultation with patient Karla Clark Work Phone: [facility] Work Phone: Start: 08-31-2019 End: 08-31-2019 Telemedicine consultation with patient Karla Clark Work Phone: [facility] Work Phone: Start: 08-03-2019 End: 08-03-2019 Subsequent hospital visit by physician Karla Clark [facility] Laboratory Start: 07-23-2019 End: 07-23-2019 Established patient Karla Clark Work Phone: [facility] Work Phone: Start: 06-05-2019 End: 06-05-2019 Patient encounter procedure Karla Clark Work Phone: [facility] Work Phone: Start: 05-28-2019 End: 05-28-2019 Patient encounter procedure Telma Connor Work Phone: [facility] Work Phone: Start: 04-23-2019 End: 04-23-2019 ambulatory Karla Clark Work Phone: [facility] Work Phone: Start: 04-15-2019 End: 04-15-2019 Established patient Brandy Kelley Work Phone: [facility] Work Phone: Start: 04-10-2019 End: 04-12-2019 Subsequent hospital visit by physician Frantz Gen Radiologist [facility] Ultrasound Comment on above: Abnormal mammogram o f left breast Start: 03-11-2019 End: 03-13-2019 Subsequent hospital visit by physician Frantz Ultrasound Room [facility] Ultrasound Comment on above: Duct ectasia of jr st, left Start: 03-05-2019 End: 03-05-2019 Established patient Karla Clark Work Phone: [facility] Work Phone: Start: 02-16-2019 End: 02-18-2019 Subsequent hospital visit by physician Frantz Xr Dr Room [address] [facility] Radiology Comment on above: Right foot pain Start: 12-22-2018 End: 12-22-2018 Established patient Karla Clark Work Phone: [facility] Work Phone: Start: 11-11-2018 End: 11-11-2018 Patient encounter procedure Karla Clark Work Phone: [facility] Work Phone: Start: 11-06-2018 End: 11-06-2018 Established patient Karla Clark Work Phone: [facility] Work Phone: Start: 09-11-2018 End: 09-11-2018 Established patient Karla Clark Work Phone: [facility] Work Phone: Start: 09-11-2018 End: 09-11-2018 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 Karla Amber INTERNET 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 Work Phone: [facility] Work Phone: Start: 09-04-2018 End: 09-04-2018 Established patient Karla Amber Work Phone: [facility] Work Phone: Start: 09-04-2018 End: 09-04-2018 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 Karla Amber INTERNET 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 Work Phone: [facility] Work Phone: Start: 07-31-2018 End: 07-31-2018 Established patient Karla Clark Work Phone: [facility] Work Phone: Start: 05-08-2018 Office outpatient vi sit 15 minutes Karla Clark Other [facility] Start: 05-08-2018 End: 05-08-2018 Patient encounter procedure 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: [facility] Work Phone: Start: 03-20-2018 End: 03-20-2018 Patient encounter procedure Conversion Provider Work Phone: [facility] Work Phone: Start: 03-20-2018 Office outpatient vi sit 5 minutes Karla Clark Other [facility] Start: 02-13-2018 Medical Karla Clark Other [facility] Start: 02-13-2018 End: 02-13-2018 Office outpatient visit 5 minutes Karlajulius Clark Other [facility] Start: 02-13-2018 Evaluation and manag ement of established outpatient in office or other outpatient facility Karla Clark [facility] Start: 02-11-2018 Medical Karla Clark Other [facility] Start: 02-11-2018 End: 02-11-2018 Office outpatient visit 5 minutes Karla Clark Other [facility] Start: 02-11-2018 End: 02-11-2018 Patient encounter procedure Karla Clark CNP Work Phone: [facility] Work Phone: Start: 12-19-2017 End: 12-19-2017 Office outpatient visit 15 minutes Karla Clark Other [facility] Start: 12-19-2017 End: 12-19-2017 Patient encounter procedure Karla Clark CNP Work Phone: [facility] Work Phone: Start: 10-08-2017 End: 10-08-2017 Patient encounter procedure Karla Clark CNP Work Phone: [facility] Work Phone: Start: 10-08-2017 End: 10-08-2017 Office outpatient visit 15 minutes Karla Clark Other [facility] Start: 09-17-2017 End: 09-17-2017 Patient encounter procedure Karla Clark CNP Work Phone: [facility] Work Phone: Start: 09-17-2017 Laboratory examinati on, unspecified Karla Clark [facility] Start: 09-17-2017 Physical examination Karla Quinones [facility] Start: 09-17-2017 Comprehensive metabo lic panel Karla Clark [facility] Start: 09-17-2017 End: 09-17-2017 Office outpatient visit 15 minutes Karla Clark Other [facility] Start: 07-30-2017 End: 07-30-2017 Periodic preventive med est patient 40-64yrs Karla Clark Other [facility] Start: 05-14-2017 End: 05-14-2017 Office outpatient visit 15 minutes Karla Clark Other [facility] Start: 04-18-2017 End: 04-18-2017 Medical Karla Clark Other [facility] Start: 03-07-2017 End: 03-07-2017 Evaluation and management of established outpatient in office or other outpatient [facility] Start: 03-07-2017 End: 03-07-2017 TB Read Karla Clark Other [facility] Start: 03-05-2017 Physical examination Karla Clark [facility] Start: 03-05-2017 End: 03-05-2017 Office outpatient visit 15 minutes Karla Clark Other [facility] Start: 03-05-2017 Tobacco use cessatio n intensive >10 minutes [facility] Start: 01-01-2017 Ct head/brain w/o & w/contrast material [facility] Start: 01-01-2017 End: 01-01-2017 Office outpatient visit 15 minutes Karla Clark Other [facility] Start: 12-06-2016 End: 12-06-2016 Office outpatient visit 15 minutes Karla Clark Other [facility] Start: 11-06-2016 End: 11-06-2016 Office outpatient visit 15 minutes Karla Clark Other [facility] Start: 11-06-2016 Urinalysis qual/semi quant [facility] Start: 09-27-2016 End: 09-27-2016 Office outpatient visit 15 minutes Karla Clark Other [facility] Start: 08-21-2016 End: 08-21-2016 Office outpatient visit 15 minutes Karla Clark Other [facility] Start: 06-26-2016 End: 06-26-2016 Office outpatient visit 15 minutes Karla Clark Other [facility] Start: 06-26-2016 Tobacco use cessatio n intermediate 3-10 minutes [facility] Start: 06-12-2016 End: 06-12-2016 Office outpatient visit 15 minutes Karla Clark Other [facility] Start: 05-22-2016 End: 05-22-2016 Office outpatient visit 25 minutes Karla Clark Other [facility] Start: 04-10-2016 End: 04-10-2016 Office outpatient visit 15 minutes Karla Clark Other [facility] Start: 03-20-2016 Tobacco use cessatio n intermediate 3-10 minutes [facility] Start: 03-20-2016 End: 03-20-2016 Office outpatient visit 15 minutes Karla Clark Other [facility] Start: 03-09-2016 Evaluation and manag ement of established outpatient in office or other outpatient facility [facility] Start: 03-09-2016 End: 03-09-2016 Office outpatient visit 5 minutes Karla Clark Other [facility] Start: 03-06-2016 End: 03-06-2016 Office outpatient visit 15 minutes Karlajulius Clark Other [facility] Start: 02-21-2016 End: 02-21-2016 Office outpatient visit 15 minutes Karla Clark Other [facility] Start: 01-12-2016 Tobacco use cessatio n intermediate 3-10 minutes [facility] Start: 01-11-2016 End: 01-11-2016 Office outpatient visit 15 minutes Karlajulius Clark Other [facility] Start: 12-08-2015 End: 12-08-2015 Office outpatient visit 15 minutes Karla Clark Other [facility] Start: 10-25-2015 Culture bct isol&prs mptv id isolate ea urine [facility] Start: 10-25-2015 End: 10-25-2015 Office outpatient visit 15 minutes Karla Clark Other [facility] Start: 09-22-2015 End: 09-22-2015 Office outpatient visit 15 minutes Karla Clark Other [facility] Start: 09-08-2015 Iadna chlamydia trachomatis amplified probe tq [facility] Start: 09-08-2015 End: 09-08-2015 Office outpatient visit 15 minutes Karla Clark Other [facility] Procedures Date Procedure Procedure Detail Performing Clinician Start: 12-17-2024 Echo tthrc r-t 2d w/wom-mode compl spec&colr d Héctor Turner MD Work Phone: Start: 04-23-2024 Urinalysis microscopic only Jesus Mims [...] material Jesus Mims MD Work Phone: Start: 0 End: 04-23-2024 Comprehensive metabolic panel Jesus Mims [...] ea extremty w/paraspinl area complete Lucy Gilbert DO Work Phone: Start: 01-27-2024 Behav assmt w/score & docd/stand instrument Vida Culp CNP Work Phone: Start: 01-27-2024 Current tobacco non-user cad cap copd pv dm Vida Culp CNP Work Phone: Start: 01-27-2024 Depression screening Visit For: Screening Exam Depression Vida Culp CNP Work Phone: Start: 01-27-2024 [facility] visit, estab pt Vida Culp CNP Work Phone: Start: 01-27-2024 Most recent diastolic blood pressure < 80 mm hg Vida Culp CNP Work Phone: Start: 01-27-2024 Most recent systolic blood press 130-139mm hg Vida Culp CNP Work Phone: Start: 10-04-2023 Behav assmt w/score & docd/stand instrument Karla Clark CNP Work Phone: Start: 10-04-2023 Current tobacco smoker Karla Clark CNP Work Phone: Start: 10-04-2023 FQ visit, estab pt Karla Clark CNP [...] Start: 05-22-2023 Current tobacco smoker Karla Clark CNP Work Phone: Start: 05-22-2023 FQ visit, estab pt Karla Clark CNP Work Phone: Start: 05-22-2023 Most recent diastolic blood pressure 80-89 mm hg Karla Clark CNP Work Phone: Start: 05-22-2023 Most recent systolic blood press 130-139mm hg Karla Clark CNP Work Phone: Start: 05-22-2023 Pt scrnd tobacco use rcvd tobacco cessation talk Karla Clark CNP Work Phone: Start: 03-26-2023 CT of abdomen and pelvis without contrast PALLIATIVE NURSE Karla Clark Work Phone: Start: 03-14-2023 Computed tomography of abdomen and pelvis with contrast PALLIATIVE NURSE Karla Clark Work Phone: Start: 03-12-2023 Urine culture PALLIATIVE NURSE Karla Clark Work Phone: Start: 02-28-2023 Asthma Control Test/Baseline Evaluation Aaron Campbellix INTERNET 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 Work Phone: Start: 02-28-2023 Current tobacco smoker Aaron Campbellix INTERNET 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 Work Phone: Start: 02-28-2023 FQHC visit, estab pt Aaron Campbellix INTERNET 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 Work Phone: Start: 02-28-2023 Most recent diastolic blood pressure < 80 mm hg Lina Penix INTERNET 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 Work Phone: Start: 02-28-2023 Most recent systolic blood pressure <130 mm hg Lina Penix INTERNET 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 Work Phone: Start: 02-28-2023 Pt scrnd tobacco use rcvd tobacco cessation talk Aaron Garcia Penix INTERNET 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 Work Phone: Start: 02-28-2023 Screening for malignant neoplasm of breast Visit For: Screening Exam Malignant Neoplasm Breast Aaron Garcia Penix INTERNET 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 Work Phone: Start: 12-12-2022 Plain X-ray of right shoulder PALLIATIVE NURSE Karla Clark Work Phone: Start: 11-19-2022 Current tobacco smoker 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: Start: 11-19-2022 FQHC visit, estab pt 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: Start: 11-19-2022 Most recent diastolic blood pressure < 80 mm hg 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: Start: 11-19-2022 Most recent systolic blood press 130-139mm hg 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: Start: 10-31-2022 Plain X-ray of right shoulder PHYSICIAN NO FAMILY Start: 10-03-2022 Plain X-ray of right shoulder PHYSICIAN NO FAMILY Start: 09-21-2022 Surgical procedure 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: Start: 09-18-2022 Current tobacco smoker Karla Amber INTERNET 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 Work Phone: Start: 09-18-2022 FQHC visit, estab [...] Start: 08-27-2022 Current tobacco smoker Karla Clark CNP Work Phone: Start: 08-27-2022 [facility] visit, estab pt Karla Clark CNP Work Phone: Start: 08-27-2022 Most recent diastolic blood pressure < 80 mm hg Karla Clark CNP Work Phone: Start: 08-27-2022 Most recent systolic blood pressure <130 mm hg Karla Clark CNP Work Phone: Start: 06-18-2022 Current tobacco smoker Karla Clark CNP Work Phone: Start: 06-18-2022 [facility] visit, estab pt Karla Clark CNP Work [...] 03-20-2022 FQ visit, MH estab pt Yin Varindermon s [facility] Work Phone: Start: 03-20-2022 Most recent diastolic blood pressure 80-89 mm hg Karla Clark CNP Work Phone: Start: 03-20-2022 Most recent systolic blood pressure <130 mm hg Karla Clark CNP Work Phone: Start: 03-20-2022 Psychotherapy w/patient 30 minutes Yinluis Boswells [facility] Work Phone: Start: 12-20-2021 Antibody hiv-1&hiv-2 [...] 11-03-2021 Psychotherapy w/patient 30 minutes Yin Feliz [facility] Work Phone: Start: 08-10-2021 Microscopic observation [Identifier] in Cervix by Cyto stain [facility] Room Start: 08-01-2021 Mri breast without&with contrast w/cad bilateral She Spencer PALLIATIVE NURSE - CNM Work Phone: Start: 08-01-2021 Creatinine blood She Spencer PALLIATIVE NURSE - CNM Work Phone: Start: 07-28-2021 Pt scrnd tobacco use rcvd tobacco cessation talk 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: Start: 05-08-2021 Blood occult fecal hgb deter ia qual feces 1-3 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: Start: 05-08-2021 Most recent diastolic blood pressure < 80 mm hg 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: Start: 05-08-2021 Most recent systolic blood press 130-139mm hg Kalra Clark INTERNET 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 Work Phone: Start: 11-25-2020 Lipid 1996 panel - Serum or Plasma Yandel Daniel MD Work Phone: Start: 11-11-2020 End: 11-11-2020 Diagnostic mammography computer-aided detcj bi She Spencer PALLIATIVE NURSE - CNM Work Phone: Start: 07-21-2020 Drug screen quantitative lithium Pinky Bakies Work Phone: Start: 07-14-2020 Drug screen quantitative lithium Pinky Bakies Work Phone: Start: 07-14-2020 Lipid panel Lolis Jace Work Phone: Start: 07-08-2020 Blood count complete [...] 06-08-2020 Diagnostic mammography computer-aided detcj uni Billy Camposinen Work Phone: Start: 06-08-2020 Implantable tissue marker Billy Alpa Senthaiine n Work Phone: Start: 06-06-2020 Assay of prolactin [...] Assay of thyroid stimulating hormone tsh Rekha Ribeirokendra Work Phone: Start: 08-03-2019 Creatinine blood Rekha Munoz Work Phone: Start: 08-03-2019 Drug screen quantitative lithium Rekha Ribeirokendra Work Phone: Start: 08-03-2019 Glucose quantitative blood xcpt reagent strip Rekha Gonzalez Gemakendra Work Phone: Start: 08-03-2019 Lipid panel Rekha Fernanda Gemakendra Work Phone: Start: 07-23-2019 Diast bp 80-89 [...] uni real time with image complete She Ann-Marie Spencer Work Phone: Start: 03-05-2019 Hemoglobin glycosylated [...] abdominal hysterect w/wo rmvl tube ovary Karla Amber Start: 11-06-2018 Adult health examination Assessment of Routine History and Physical Adult (18 - 64 Yrs) Karla Clark Start: 09-11-2018 Adult health examination Assessment of Routine History and Physical Adult (18 - 64 Yrs) Karla Amber Start: 09-04-2018 Adult health examination Assessment of Routine History and Physical Adult (18 - 64 Yrs) Karla Amber Start: 09-04-2018 Diast bp >/= 90 mm hg Karla Clark Work Phone: Start: 09-04-2018 Syst bp >/= 140 mm hg Karla Clark Work Phone: Start: 07-31-2018 ABNORMAL ELECTROCARDIOGRAM 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: Start: 07-31-2018 ASTHMA 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: Start: 07-31-2018 BIPOLAR DISORDER NOS 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: Start: 07-31-2018 CARDIOVASCULAR DISORDERS Karla Clark CN P Work Phone: Start: 07-31-2018 DEPRESSION 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: Start: 07-31-2018 PSYCHIATRIC DISORDERS 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: Start: 07-31-2018 RESPIRATORY DISORDERS 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: Start: 07-31-2018 Urnls dip stick/tablet [...] Urnls dip stick/tablet rgnt non-auto w/o micrscp Kalra Clark Start: 10-25-2015 End: 10-25-2015 Culture bct [...] DTaP/Tdap/Td vaccine (2 - Td or Tdap) [facility] Start: 12-28-2027 DTaP/Tdap/Td vaccine (3 - Td or Tdap) DTaP/Tdap/Td vaccine (3 - Td or Tdap) [facility] Start: 12-28-2027 DTaP/Tdap/Td vaccine (3 - Td) DTaP/Tdap/Td vaccine (3 - Td) [facility] Start: 12-28-2027 Urine microalbumin profile DTaP,Tdap,Td Vaccine (3 - Td or Tdap) [facility] Start: 06-20-2026 Diabetes Screening Diabetes Screening [facility] Start: 11-25-2025 Lipid panel [facility] Start: 07-14-2025 Lipid panel [facility] Start: 07-08-2025 Lipid panel Lipid screen [facility] Work Phone: Start: 06-01-2025 Screening for malignant neoplasm of breast Breast cancer screen [facility] Start: 04-23-2025 GFR test (Diabetes, CKD 3-4, OR last GFR 15-59) GFR test (Diabetes, CKD 3-4, OR last GFR 15-59) [facility] Start: 03-10-2025 Lipid [facility] Start: 02-22-2025 End: 02-22-2025 Patient encounter procedure 02/22/2025 2:30 PM EDT Office Visit [facility] [address] [place] [address] Paramjit Olvera MD [address] [place], [place] [id number] 3 month follow up [facility] Comment on above: 3 month follow up Start: 01-01-2025 Influenza vaccination Flu vaccine (#1) [facility] Start: 08-25-2024 COVID-19 Vaccine ( season) COVID-19 Vaccine ( season) [facility] Start: 08-18-2024 End: 08-18-2024 Patient encounter procedure 08/18/2024 1:00 PM EDT Office Visit [facility] [address] [place] [id number] Musa Lua, [address] [place] [address] [facility] Start: 08-10-2024 Screening for malignant neoplasm of cervix [facility] Start: 08-03-2024 End: 08-03-2024 Patient encounter procedure 08/03/2024 1:20 PM EST Office Visit [facility] Part of [address] [id number] Héctor Turner MD [address] [place] [id number] One year follow up [facility] Part of [facility] Comment on above: One year follow up Start: 08-02-2024 Lipid panel Lipid screen [facility] Start: 07-17-2024 [facility] Start: 06-27-2024 COVID-19 Vaccine ( season) COVID-19 Vaccine () [facility] Start: 06-21-2024 Creatinine measurement Serum Creatinine [facility] Start: 06-20-2024 Complete blood count Hemoglobin/Hematocrit [facility] Start: 06-03-2024 Annual Wellness Visit (Medicare Advantage) Annual Wellness Visit (Medicare Advantage) [facility] Start: 05-30-2024 BP Controlled (<130/80) BP Controlled (<130/80) [facility] in Start: 04-06-2024 FQHC visit, estab pt Medical Established Patient [facility] Work Phone: Start: 04-06-2024 End: 04-06-2024 Patient encounter procedure 04/06/2024 1:00 PM EST Office Visit [facility] [address] [place] [address] Lulu Morocho NP [address] [place] [address] [facility] [address] [address] Start: 03-19-2024 End: 03-19-2024 Patient encounter procedure 03/19/2024 2:30 PM EDT Office Visit [facility] [address] [place] [id number] Dakota Mack MD [address] [place] [address] [facility] Start: 02-26-2024 End: 02-26-2024 ambulatory 02/26/2024 2:00 PM EDT Evaluation [facility] [address] [place] [phone] Carito Maloney, PT [facility] Start: 02-25-2024 End: 02-25-2024 Patient encounter procedure [facility] Comment on above: Arrived Start: 02-18-2024 End: 02-17-2025 EMG 2 Extremities EMG 2 Extremities Neurology Routine Gait instability Expected: 02/18/2024, Expires: 02/17/2025 [facility] Work Phone: Comment on above: Expected: 02/18/2024, Expires: Start: 02-02-2024 Influenza vaccination [facility] Start: 01-27-2024 Neurology [facility] Work Phone: Comment on above: Note: Please make a referral to: Start: 01-27-2024 End: 01-27-2024 Patient education based on identified need [facility] Start: 01-02-2024 Influenza vaccination Flu vaccine (#1) [place] [facility] Start: 12-24-2023 [facility] Start: 11-15-2023 Lipid screen Lipid screen [place], [place] Start: 11-15-2023 Physical Therapy [facility] Work Phone: Comment on above: Note: Please make a referral to: Start: 11-03-2023 Cologuard [facility] Start: 10-04-2023 FQHC visit, estab pt Medical Established Patient [facility] Work Phone: Start: 10-04-2023 End: 10-04-2023 Patient education based on identified need [facility] Start: 08-27-2023 End: 08-27-2023 Patient encounter procedure 08/27/2023 Office Visit Obstetrics and Gynecology She Spencer, PALLIATIVE NURSE - CNM [address] [place] [address] [facility] Part of [facility] Start: 08-20-2023 Excision of lesion of cheek OR Cheek Lesion Exc W/Flap Recon (Not Applicable) [facility] Start: 08-20-2023 End: 08-20-2023 [facility] Start: 08-20-2023 [facility] Start: 08-15-2023 Hospital admission [facility] Start: 08-15-2023 [facility] Start: 07-16-2023 End: 07-16-2023 Patient encounter procedure 07/16/2023 1:20 PM EST Office Visit [facility] [address] [place] [id number] Dakota Mack MD [address] [place] [address] Arrived [facility] Comment on above: Arrived Start: 07-11-2023 End: 07-11-2023 Patient encounter procedure 07/11/2023 Office Visit Cardiology Juju Irby PA-C [address] [place] [address] [facility] CARDI[facility] Part of [facility] Start: 06-03-2023 Advance Directive Discussion Advance Directive Discussion [facility] Start: 06-03-2023 Annual Wellness Visit (Medicare Advantage) Annual Wellness Visit (Medicare Advantage) [facility] Start: 06-03-2023 Behavioral Health Screening Behavioral Health Screening [facility] Start: 06-03-2023 Depression Assessment Depression Assessment [facility] Start: 05-23-2023 FQHC visit, estab pt Medical Established Patient [facility] Work Phone: Start: 05-22-2023 Dermatology [facility] Work Phone: Comment on above: Note: Please make a referral to: [facility] janie or hillary Start: 05-22-2023 End: 05-22-2023 Patient education based on identified need [facility] Start: 04-20-2023 Urinalysis [facility] Start: 03-30-2023 Mammography Mammogram - Screening ([id number]) [facility] Start: 03-28-2023 FQHC visit, estab pt Medical Established Patient [facility] Work Phone: Start: 03-28-2023 [facility] Start: 03-26-2023 Urine culture Urine Culture [facility] Start: 03-26-2023 Referral to clinical hooker laster [facility] Start: 03-26-2023 Hospital admission [facility] Start: 03-15-2023 [facility] Start: 03-13-2023 Referral to clinical hooker laster [facility] Start: 03-12-2023 Hospital admission [facility] Start: 03-12-2023 [facility] Start: 03-01-2023 FQHC visit, estab pt Medical Established Patient [facility] Work Phone: Start: 02-28-2023 FQHC visit, estab pt Medical Established Patient [facility] Work Phone: Start: 02-28-2023 End: 02-28-2023 Patient education based on identified need [facility] Start: 02-01-2023 Covid-19 Vaccine () Covid-19 Vaccine () [facility] Start: 11-19-2022 End: 11-19-2022 Patient education based on identified need [facility] Start: 11-13-2022 FQHC visit, estab pt Medical Established Patient [facility] Work Phone: Start: 09-18-2022 FQHC visit, estab pt Medical Established Patient [facility] Work Phone: Start: 09-18-2022 End: 09-18-2022 Patient education based on identified need [facility] Start: 09-13-2022 [facility] Start: 09-01-2022 CBC W Auto Differential panel - Blood [facility] Start: 09-01-2022 Lipid 1996 panel - Serum or Plasma LIPID PROFILE [facility] Start: 08-27-2022 End: 08-27-2022 Patient education based on identified need [facility] Start: 08-27-2022 End: 08-27-2022 Provider instructions for treatment Intervention and counseling on cessation of tobacco use, 3-10 minutes Discussed medication and nicotine replacement for tobacco cessation [facility] Start: 08-16-2022 End: 08-16-2022 Patient encounter procedure 08/16/2022 Office Visit Obstetrics and Gynecology She Spencer, PALLIATIVE NURSE - CNM [address] [place] [address] [facility]ST[facility] GYNECOLOG[facility] Start: 07-04-2022 End: 07-04-2022 Patient encounter procedure 07/04/2022 Office Visit Cardiology Juju Irby PA-C [address] [place] [address] [facility] Start: 06-26-2022 FQHC visit, estab pt Medical Established Patient [facility] Work Phone: Start: 06-18-2022 End: 06-18-2022 Patient education based on identified need [facility] Start: 05-08-2022 Screening for malignant neoplasm of colon [facility] Start: 03-20-2022 End: 03-20-2022 Patient education based on identified need [facility] Start: 01-10-2022 Annual Wellness Visit (AWV) Annual Wellness Visit (AWV) [facility] Start: 01-01-2022 Influenza vaccination Flu vaccine (#1) [facility] Start: 12-20-2021 End: 12-20-2021 Patient education based on identified need [facility] Start: 12-15-2021 FQHC visit, estab pt Medical Established Patient [facility] Work Phone: Start: 11-11-2021 Screening for malignant neoplasm of breast [facility] Start: 11-03-2021 Cardiology [facility] Work Phone: Comment on above: Note: Please make a referral to: Start: 11-03-2021 End: 11-03-2021 Patient education based on identified need [facility] Start: 2021 Screening for osteoporosis Bone Density Screening [facility] Start: 10-10-2021 COVID-19 Vaccine (4 - Booster for Moderna series) COVID-19 Vaccine (4 - Booster for Moderna series) [facility] Start: 08-15-2021 End: 08-15-2021 Patient encounter procedure 08/15/2021 Office Visit Obstetrics and Gynecology She Spencer, PALLIATIVE NURSE - CNM [address] [place] [address] [facility]ECOLOG[facility] Start: 08-14-2021 CBC W Auto Differential panel - Blood [facility] Start: 08-10-2021 End: 08-10-2021 Patient encounter procedure 08/10/2021 Office Visit Obstetrics and Gynecology She Spencer APRN - CNAlexey [address] [place] [address] [facility] Start: 08-07-2021 COVID-19 Vaccine (4 - Booster for Moderna series) COVID-19 Vaccine (4 - Booster for Moderna series) [facility] Start: 07-28-2021 ENT [facility] Work Phone: Comment on above: Note: Please make a referral to: aliyah GUPTA Start: 07-28-2021 End: 07-28-2021 Patient education based on identified need [facility] Start: 07-28-2021 End: 07-28-2021 Provider instructions for treatment Intervention and counseling on cessation of tobacco use, 3-10 minutes Discussed medication and nicotine replacement for tobacco cessation [facility] Start: 07-03-2021 COVID-19 Vaccine (2 - Pfizer 3-dose series) COVID-19 Vaccine (2 - Pfizer 3-dose series) [facility] Start: 06-08-2021 Screening for malignant neoplasm of breast Breast cancer screen [facility] [place] [place] Start: 05-15-2021 CBC W Auto Differential panel - Blood [facility] Start: 05-15-2021 Lipid 1996 panel - Serum or Plasma LIPID PROFILE [facility] Start: 05-08-2021 End: 05-08-2021 Patient education based on identified need [facility] Start: 05-01-2021 End: 05-01-2021 Patient encounter procedure 05/01/2021 Office Visit Neurology Bhupinder Iniguez MD [address] [facility] [place] [address] [facility] NEUROLOGY [facility] of [facility] Start: 04-04-2021 Screening for malignant neoplasm of breast Breast cancer screen [place], [place] Start: 03-31-2021 Hemoglobin A1c measurement A1C test (Diabetic or Prediabetic) [facility] Start: 03-31-2021 Pneumococcal 65+ years Vaccine (2 - PPSV23 if available, else PCV20) Pneumococcal 65+ years Vaccine (2 - PPSV23 if available, else PCV20) [facility] Start: 03-31-2021 Pneumococcal 65+ years Vaccine (2 - PPSV23 or PCV20) Pneumococcal 65+ years Vaccine (2 - PPSV23 or PCV20) [facility] Start: 02-01-2021 Influenza vaccination Flu vaccine (#1) [facility] Start: 01-29-2021 Cervical cancer screen Cervical cancer screen [place], [place] Start: 01-29-2021 Screening for malignant neoplasm of cervix Cervical cancer screen [place], [place] Start: 10-17-2020 End: 10-17-2020 Office Visit 10/17/2020 Office Visit Neurology Bhupinder Iniguez MD [address] [place] [address] [facility] NEUROLOG[facility] Start: 08-11-2020 End: 08-11-2020 Office Visit 08/11/2020 Office Visit Obstetrics and Gynecology She Spencer APRN - ADAM [address] [place] [address] [facility] Start: 07-17-2020 [facility] Work Phone: Start: 07-12-2020 End: 07-12-2020 Office Visit 07/12/2020 Office Visit General Surgery Billy Ojeda MD [address] [place] [address] [phone] [facility] GENERAL SURGERY Part [facility] Start: 07-07-2020 CBC W Auto Differential panel - Blood [facility] Start: 07-07-2020 Lipid 1996 panel - Serum or Plasma LIPID PROFILE [facility] Start: 06-29-2020 BUN + CREATININE [facility] Start: 06-24-2020 [facility] Work Phone: Start: 06-17-2020 Nephrology [facility] Work Phone: Comment on above: Note: Please make a referral to: Start: 06-08-2020 End: 06-08-2020 Appointment 06/08/2020 Appointment Radiology Radiologist, [facility] Ultrasound Start: 06-06-2020 End: 06-06-2020 Patient education based on identified need [facility] Start: 06-06-2020 Medical Established Patient [facility] Work Phone: Start: 05-26-2020 Pneumococcal Vaccine: 65+ (2 of 2 - PPSV23 or PCV20) Pneumococcal Vaccine: 65+ (2 of 2 - PPSV23 or PCV20) [facility] Start: 05-06-2020 End: 05-06-2020 Patient education based on identified need [facility] Start: 05-06-2020 End: 05-06-2020 Provider instructions for treatment Intervention and counseling on cessation of tobacco use, 3-10 minutes [facility] Start: 05-06-2020 [facility] Work Phone: Start: 04-18-2020 End: 04-18-2020 Office Visit 04/18/2020 Office Visit Neurology Bhupinder Iniguez MD [address] [place] [phone] [facility] NE[facility] Start: 04-07-2020 [facility] Work Phone: Start: 04-04-2020 End: 04-04-[address] [facility] Mammography Start: 03-31-2020 End: 03-31-2020 Patient education based on identified need [facility] Start: 03-04-2020 Lipid 1996 panel [facility] Work Phone: Start: 02-26-2020 Breast cancer screen Breast cancer screen [place], [place] Start: 02-26-2020 Screening for malignant neoplasm of breast Breast cancer screen [place], [place] Start: 02-26-2020 End: 02-26-2020 Patient education based on identified need [facility] Start: 02-07-2020 Colon Cancer Screen FIT/FOBT Colon Cancer Screen FIT/FOBT [place], [place] Start: 02-07-2020 Screening for malignant neoplasm of colon [facility] Start: 02-02-2020 Influenza vaccination Flu vaccine (#1) [place], [place] Start: 01-30-2020 A1C test (Diabetic or Prediabetic) A1C test (Diabetic or Prediabetic) [place], [place] Comment on above: Postponed from 08/10/2017 (Not Indicated ) Start: 01-30-2020 Hepatitis C screen Hepatitis C screen [place], [place] Comment on above: Postponed from 1956 (Patient Refus ed) Start: 01-30-2020 HIV screen HIV screen [place], [place] Comment on above: Postponed from 10/31/1971 (Patient Refus ed) Start: 01-30-2020 Pneumococcal 0-64 years Vaccine (1 of 1 - PPSV23) Pneumococcal 0-64 years Vaccine (1 of 1 - PPSV23) [place], [place] Comment on above: Postponed from 1962 (Insurance / F inancial) Start: 11-26-2019 Lipid 1996 panel [facility] Work Phone: Start: 11-20-2019 Medical Established Patient [facility] Work Phone: Start: 11-03-2019 End: 11-03-2019 Office Visit 11/03/2019 Office Visit General Surgery Billy Ojeda MD [address] [place] [address] [address] [place] [address] [phone] [facility] GENERAL SURGERY Start: 09-24-2019 End: 09-24-2019 Office Visit 09/24/2019 Office Visit Neurology Bhupinder Iniguez MD [address] [place] [address] [facility] Neurology specialist [place] Start: 08-31-2019 ENT [facility] Work Phone: Comment on above: Note: Please make a referral to: when e can have face to face visit , 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 was seen [facility] [place] Start: 07-23-2019 Medical Established Patient [facility] Work Phone: Start: 06-05-2019 End: 06-05-2019 Patient education based on identified need [facility] Start: 06-05-2019 [facility]- [facility]- F/U [facility] Work Phone: Start: 05-28-2019 End: 05-28-2019 Patient education based on identified need [facility] Start: 04-23-2019 End: 04-23-2019 Patient education based on identified need [facility] Start: 04-23-2019 End: 04-23-2019 Provider instructions for treatment Return to the clinic if condition worsens or new symptoms arise [facility] Start: 04-23-2019 End: 04-23-2019 Office Visit 04/23/2019 Office Visit Neurology Bhupinder Iniguez MD [address] [facility] [place] [address] [facility] Neurology specialist [place] Start: 04-20-2019 End: 04-20-2019 Office Visit 04/20/2019 Office Visit General Surgery Billy Ojeda MD [address] [place] [address] [place] [facility] Start: 04-16-2019 Private Stock [facility] Work Phone: Start: 04-15-2019 End: 04-15-2019 Provider instructions for treatment Intervention and counseling on cessation of tobacco use, 3-10 minutes [facility] Start: 03-05-2019 End: 03-05-2019 Patient education based on identified need [facility] Start: 03-02-2019 End: 03-02-2019 Office Visit 03/02/2019 Office Visit Neurology Bhupinder Iniguez MD [address] [place] [address] [facility] Neurology specialist [place] Start: 02-25-2019 End: 02-25-2019 Appointment 02/25/2019 Appointment Radiology [facility] Mammography Start: 02-01-2019 Influenza vaccination Flu vaccine (#1) [facility] Start: 12-22-2018 End: 10-04-2018 Free T4 [Mass/Vol] [facility] Work Phone: Start: 12-11-2018 Breast cancer screen Breast cancer screen [facility] Start: 11-19-2018 Screening for malignant neoplasm of breast Mammogram Screening [facility] Start: 11-06-2018 FQHC visit, estab pt Established Patient [facility] Work Phone: Start: 10-04-2018 Free T4 [Mass/Vol] [facility] Work Phone: Start: 09-11-2018 End: 10-04-2018 CBC W Auto Differential panel - Blood [facility] Work Phone: Comment on above: Note: Please make a referral to: Start: 09-04-2018 End: 10-04-2018 CBC W Auto Differential panel - Blood CBC with diff (CDP) [facility] Start: 09-04-2018 End: 10-04-2018 Comprehensive metabolic 2000 panel - Serum or Plasma Comprehensive Metabolic Panel (CP) [facility] Start: 09-04-2018 End: 10-04-2018 Lipid panel Lipid Panel (LIPR) [facility] Start: 09-04-2018 End: 10-04-2018 Thyrotropin [Units/volume] in Serum or Plasma TSH [facility] Start: 09-04-2018 End: 05-04-2019 Thyroxine (T4) free [Mass/volume] in Serum or Plasma T4 Free (FT4) [facility] Start: 11-19-2017 Screening mammography Screening mammography of both breasts, two views [facility] Start: 08-10-2017 HbA1c (Bld) [Mass fraction] A1C test (Diabetic or Prediabetic) [place] Start: 08-10-2017 Hemoglobin A1c measurement A1C test (Diabetic or Prediabetic) [facility] Start: 2016 Respiratory Syncytial Virus (RSV) or age 60 yrs+ (1 - Risk 60-74 years 1-dose series) Respiratory Syncytial Virus (RSV) or age 60 yrs+ (1 - Risk 60-74 years 1-dose series) [facility] Start: 2016 RSV Vaccine (1 - 1-dose 60+ series) RSV Vaccine (1 - 1-dose 60+ series) [facility] Start: 03-26-2016 Shingles Vaccine (2 of 3) Shingles Vaccine (2 of 3) [facility] Start: 03-26-2016 Shingrix Vaccine (2 of 3) Shingrix Vaccine (2 of 3) [facility] Start: 2001 Screening for malignant neoplasm of colon [facility] Start: 1986 Screening for malignant neoplasm of cervix HPV (without or with Pap) [facility] Start: 1986 Zoledronic acid therapy Alpha-1 Antitrypsin Deficiency Screening [facility] Start: 1974 Annual PCP Team Chronic Disease Visit Annual PCP Team Chronic Disease Visit [facility] Start: 1974 Hepatitis C screening [facility] Start: 10-31-1971 HIV screening HIV screen [facility] Start: 1968 Depression Monitoring Depression Monitoring [facility] Start: 1962 Pneumococcal 0-64 years Vaccine (1 of 1 - PPSV23) Pneumococcal 0-64 years Vaccine (1 of 1 - PPSV23) [place] Start: 1962 Pneumococcal 0-64 years Vaccine (1 of 2 - PPSV23) Pneumococcal 0-64 years Vaccine (1 of 2 - PPSV23) [facility] Start: 1956 Hepatitis C screening Hepatitis C screen [facility] Start: 1956 Screening for malignant neoplasm of colon [employer] [employer] End: 08-16-2022 Cytopathology procedure, preparation of smear, genital source PAP SMEAR Lab Routine Screening for malignant neoplasm of cervix 1 Occurrences starting 08/16/2022 until 08/16/2022 [facility] Work Phone: Comment on above: 1 Occurrences starting 08/16/2022 until 08/16/2022 Dermatopathology exam Dermatopat hology exam Pathology and Cytology Timed Neoplasm of unspecified behavior of bone, soft tissue, and skin Release Upon Ordering for 1 Occurrences starting 07/16/2023 [employer] Work Phone: Comment on above: Release Upon Ordering for 1 Occurrences starting 07/16/2023 End: 08-16-2022 Herpes Simplex 1 & 2, Molecular [facility] Work Phone: Comment on above: 1 Occurrences starting 08/16/2022 until 08/16/2022 Patient Education [facility] Work Phone: Patient referral [facility] Work Phone: End: 08-16-2022 Vaginitis DNA Probe [facility] Work Phone: Comment on above: 1 Occurrences starting 08/16/2022 until 08/16/2022 [facility] Immunizations Immunization Date Immunization Notes Care Provider Maribeth martel 10-04-2023 pneumococcal vaccine , unspecified formulation; Translations: [PCV-20] Karla Clark [facility] Work Phone: [facility] Comment on above: Note: Patient tolera cornelia well. No signs or symptoms of adverse reactions. Patient waited a minimum of 15 minutes. 10-04-2023 Imm.Admin. over 18 y rs Any Route FIRST Injection Karla Clark CNP Work Phone: [facility] 10-04-2023 Admin Pneumococcal Vaccine Medicare Karla Clark CNP Work Phone: [facility] 03-22-2022 COVID-19 mRNA Bivale nt Booster (Pecabu) PALLIATIVE NURSE Karla Clark Work Phone: [facility] 06-12-2021 COVID-19 mRNA, Comirnaty (Pfizer) PALLIATIVE NURSE Karla Clark Work Phone: [facility] 07-05-2020 1st Dose MODERNA COVID-19 Vaccine 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: [facility] 06-07-2020 1st Dose MODERNA COVID-19 Vaccine 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: [facility] 03-31-2020 pneumococcal conjuga te vaccine, 13 valent; Translations: [Prevnar-13] [facility] Comment on above: Note: pt tolerated w ell pt waited 10 min in treatment room with no adverse effects noted at this time 03-31-2020 Imm.Admin. over 18 y rs Any Route FIRST Injection (Rendering physcian modifier) [facility] Work Phone: 03-31-2020 Imm.Admin. over 18 y rs Any Route FIRST Injection [facility] Work Phone: 03-14-2020 influenza, seasonal, injectable; Translations: [Flluarix] [facility] Comment on above: Note: pt tolerated w ell, pt waited 10 min in treatment with no adverse effects noted at this time. 03-14-2020 influenza, injectabl e, quadrivalent, preservative free [facility] Work Phone: 03-14-2020 Imm.Admin. over 18 y rs Any Route FIRST Injection [facility] Work Phone: 03-14-2020 Imm.Admin. over 18 y rs Any Route FIRST Injection (Rendering physcian modifier) [facility] Work Phone: 03-14-2020 influenza virus vaccine, unspecified formulation Yandel Daniel MD Work Phone: [facility] 04-15-2019 influenza, injectabl e, quadrivalent, preservative free [facility] Work Phone: 04-15-2019 influenza, seasonal, injectable [facility] Comment on above: Note: Patient tolera cornelia well. No signs or symptoms of adverse reactions. Patient waited in facility for 15 minutes. 03-20-2018 influenza, injectabl e, quadrivalent, preservative free; Translations: [FLU VAC NO PRSV 4 DANNY 3 YRS+] [facility] 03-20-2018 influenza, seasonal, injectable, preservative free [facility] 03-20-2018 IMMUNIZATION ADMIN; Translations: [IMMUNIZATION ADMIN] [facility] 03-20-2018 influenza virus vaccine, unspecified formulation Karla Amber [facility] Work Phone: [facility] Work Phone: Comment on above: Note: Influenza (Juan M lt) 03-20-2018 influenza, high dose seasonal, preservative-free [facility] Comment on above: Note: Influenza (Juan M lt) 12-27-2017 tetanus toxoid, redu soren diphtheria toxoid, and acellular pertussis vaccine, adsorbed [address] 03-20-2017 influenza virus vaccine, unspecified formulation [address] 03-20-2017 influenza, seasonal, injectable Karla Clark [facility] Work Phone: [facility] 03-05-2017 influenza, injectabl e, quadrivalent, preservative free; Translations: [FLU VAC NO PRSV 4 DANNY 3 YRS+] [facility] 03-05-2017 influenza, seasonal, injectable, preservative free [facility] 03-05-2017 IMMUNIZATION ADMIN; Translations: [IMMUNIZATION ADMIN] [facility] 03-05-2017 influenza virus vaccine, unspecified formulation 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: [facility] Work Phone: Comment on above: Note: Influenza (Juan M lt) 03-05-2017 influenza, high dose seasonal, preservative-free [facility] Comment on above: Note: Influenza (Juan M lt) 04-03-2016 Influenza Vaccine, unspecified formulation [address] 03-20-2016 influenza, injectabl e, quadrivalent, preservative free; Translations: [FLU VAC NO PRSV 4 DANNY 3 YRS+] [facility] 03-20-2016 IMMUNIZATION ADMIN; Translations: [IMMUNIZATION ADMIN] [facility] 03-20-2016 influenza virus vaccine, unspecified formulation 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: [facility] Work Phone: Comment on above: Note: Influenza (Juan M lt) 03-20-2016 influenza, high dose seasonal, preservative-free [facility] Comment on above: Note: Influenza (Juan M lt) 01-30-2016 zoster vaccine, live [address] 04-08-2015 influenza, seasonal, injectable, preservative free 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: [facility] 11-07-2014 varicella virus vaccine Gary e Amber INTERNET 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 Work Phone: [facility] 04-12-2014 influenza virus vaccine, unspecified formulation [address] 03-05-2012 influenza, seasonal, injectable aKrla Clark INTERNET 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 Work Phone: [facility] 01-06-2009 tetanus toxoid, redu soren diphtheria toxoid, and acellular pertussis vaccine, adsorbed 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: [facility] Payers Date Payer Category Payer Private Health Insurance [id number] 2023 Medicare [id number]. [id number] 2023 Medicare (Managed Care) ANDRA Blackburn EDICARE ADVANTAGE [id number] 2023 Private Health Insurance [id number] 2022 Self-pay 2021 Medicaid [id number] 2014 Unknown HIRALSOTEENA BLACKMANYumiko [facility] MEDICAID xxxxxxxxxxx 2014-Present [phone] CLAIMS DEPARTMENT [address] [place] [address] xxxxxxxxxxx [id number] 1959 Medicaid [id number] [id number] 2013 Unknown [id number] 2.16.840.1.368200.3.441 1959 Medicare [id number] [id number]. [id number] 1956 Unknown [id number] 2.16.840.1.851192.3.579.2. 593 1956 Unknown [id number] 2.16.840.1.260032.3.579.2. 593 1956 Unknown [id number] 2.16.840.1.630102.3.579.2. 593 1956 Unknown [id number] 2.16.840.1.017404.3.579.2. 593 1956 Unknown [id number] 2.16.840.1.364119.3.579.2. 1259 1956 Unknown [id number] 2.16.840.1.380712.3.579.2. 9 1956 Unknown [id number] 2.16.840.1.632543.3.579.2. 1258 1956 Unknown [id number] 2.16.840.1.069869.3.579.2. 1258 1956 Unknown [id number] 2.16.840.1.650292.3.579.2. 1259 1956 Unknown [id number] 2.16.840.1.517445.3.579.2. 1258 1956 Unknown [id number] 2.16.840.1.252657.3.579.2. 9 1956 Unknown [id number] 2.16.840.1.856646.3.579.2. 1286 1956 Unknown [id number] 2.16.840.1.729958.3.579.2. 175 1956 Unknown [id number] 2.16.840.1.650148.3.579.2. 175 1956 Unknown [id number] 2.16.840.1.958788.3.579.2. 173 Medicaid [id number] Unknown 1 - [employer] Medicare [id number] 200 2.16.840.1.549302.3.140.1. 71870.5.10.6.3 Unknown [id number] 2.16.840.1.140163.3.579.2. 531 Unknown [id number] 2.16.840.1.673456.3.579.2. 531 Unknown [id number] 2.16.840.1.785976.3.579.2. 531 Unknown [id number] 2.16.840.1.588577.3.579.2. 531 Social History Date Type Detail Facility Start: [facility] Comment on above: 06/04 PPD Start: 2-4 cups pd [facility] Start: 01-29-2019 End: 08-19-2023 Current every day smoker [facility] Gender identity finding (finding) [facility] Assertion Heterosexual (finding) [facility] Finding of sexua l orientation (finding) [facility] Tobacco user (finding) [facility] Work Phone: Tobacco smoking status Unknown if ever smoked [facility] History of tobacco use Cigarette Smoker [place], [place] Start: 01-29-2019 End: 04-23-2024 Cigarettes smoked current (pack per day) - Reported Charly Potter [facility] Start: 01-29-2019 End: 04-23-2024 Alcohol intake No [place], [place] Start: 1955 Sex Assigned At Not on file [place] Start: 03-23-2019 End: 11-09-2024 Alcohol intake Current non-drinker of alcohol (finding) [place] Start: 02-27-2022 End: 11-27-2023 Assertion [facility] Alcohol consumpt ion screening (procedure) [facility] Work Phone: Start: 03-23-2019 End: 08-02-2023 Tobacco use and exposure Never used [place] Exposure to SARS-CoV-2 (event) Not sure [facility] [place] Start: 04-18-2020 End: 01-01-2022 Tobacco Comment I smoke about 3-6 cig/day - [facility] Light cigarette smoker (1-9 cigs/day) (finding) [facility] Assertion Exposure to poll ution (event) [facility] Start: 09-11-2022 End: 08-20-2023 Assertion Smoker (finding) [facility] Assertion Finding relating to sexual activity (finding) [facility] Start: 08-02-2023 End: 12-17-2023 Assertion Ex-smoker (finding) [facility] Start: 1955 Sex Assigned At Female [facility] Assertion Currently not se xually active (finding) [facility] Start: 07-16-2023 End: 12-16-2023 Tobacco smoking status NHIS Never smoked tobacco [facility] Start: 06-28-2023 End: 11-18-2023 Alcohol intake Lifetime non-drinker (finding) [facility] Start: 05-30-2023 Tobacco Comment 3-4 cigarettes a day [facility] Start: 08-19-2023 Tobacco Comment 6-10 cigs/day [facility] Start: 07-19-2023 Alcohol Comment caffeine 1-2 cups/da y [facility] Start: 07-13-2012 Sex Female (finding) [place] [facility] NEGATED: Highlighted row Assertion Exposure to pollution (event) [facility] NEGATED: Highlighted row Assertion Current drinker of alcohol (finding) [facility] NEGATED: Highlighted row Assertion Finding relating to drug misuse behavior (finding) [facility] NEGATED: Highlighted row Assertion Tobacco user (finding) [facility] Work Phone: NEGATED: Highlighted row Assertion Illicit [...] of humerus Orthopaedic bone screw, non-bioabsorbable, non-sterile ()[id number] FDA Start: 09-13-2022 Open reduction and internal fixation of fracture of humerus Orthopaedic fixation plate, non-bioabsorbable, sterile ()[id number] FDA Start: 09-13-2022 Open reduction and internal fixation of fracture of humerus Orthopaedic bone wire ()[id number] FDA Start: 09-13-2022 Open reduction and internal fixation of fracture of humerus Orthopaedic bone wire ()[id number] FDA Start: 09-13-2022 Open reduction and internal fixation of fracture of humerus Orthopaedic bone wire ()[id number] FDA Start: 09-13-2022 Open reduction and internal fixation of fracture of humerus Orthopaedic bone screw, non-bioabsorbable, non-sterile ()[id number] FDA Start: 09-13-2022 Open reduction and internal fixation of fracture of humerus Orthopaedic bone screw, non-bioabsorbable, non-sterile ()[id number] FDA Start: 09-13-2022 Open reduction and internal fixation of fracture of humerus Orthopaedic bone screw, non-bioabsorbable, non-sterile ()[id number] FDA Start: 09-13-2022 Open reduction and internal fixation of fracture of humerus Orthopaedic bone screw, non-bioabsorbable, non-sterile ()[id number] FDA Start: 09-13-2022 Open reduction and internal fixation of fracture of humerus Orthopaedic bone screw, non-bioabsorbable, non-sterile ()[id number] FDA Start: 09-13-2022 Open reduction and internal fixation of fracture of humerus Orthopaedic bone screw, non-bioabsorbable, non-sterile ()[id number] FDA Start: 09-13-2022 Open reduction and internal [...] Facility 12-24-2023 Functional status Patient at Baseline [facility] Work Phone: 08-20-2023 Functional status Patient at Baseline [facility] Work Phone: 08-15-2023 Functional status Disability Sta tus Patient at Baseline [facility] Work Phone: 03-28-2023 Functional status Patient at Baseline [facility] Work Phone: 03-15-2023 Functional status Patient at Baseline [facility] Work Phone: Mental Status Date Assessment Result Facility 12-24-2023 Cognitive function Cognitive Sta tus Patient at Baseline [facility] Work Phone: 08-20-2023 Cognitive function Cognitive Sta tus Patient at Baseline [facility] Work Phone: 03-28-2023 Cognitive function Cognitive Sta tus Patient at Baseline [facility] Work Phone: 03-15-2023 Cognitive function Cognitive Sta tus Patient at Baseline [facility] Work Phone: Cognitive function No anxiety Anxiety (fi nding) [facility] Work Phone: Clinical Notes 09-04-2018 to 12-17-2024 Soni Sosa - 12/17/2024 8:30 AM EDT Note Date & Type Note Facility 12-17-2024 History of Presen t illness Narrative Explained policies and procedure of an echocardiogram/Doppler study. documented in this encounter [facility] 06-17-2024 Instructions Includes: Instructions for all patient encounters Intervention and counseling on cessation of tobacco use, 3-10 minutes Discussed medication and nicotine replacement for tobacco cessation Last Documented On 3 8:54AM ; [facility] Intervention and counseling on cessation of tobacco use, 3-10 minutes Discussed medication and nicotine replacement for tobacco cessation Last Documented On 2 1:56PM ; [facility] Intervention and counseling on cessation of tobacco use, 3-10 minutes Last Documented On 0 2:07PM ; [facility] Return to the clinic if cond ition worsens or new symptoms arise Last Documented On 9 1:59PM ; [facility] Intervention and counseling on cessation of tobacco use, 3-10 minutes Last Documented On 9 10:39AM ; [facility] Education and Decision Aids were provided during visit for: Discussed nutritional needs teach healthy choices including fruits and vegetables Last Documented On 4 8:44AM ; [facility] Patient education about a pr oper diet Last Documented On 4 8:44AM ; [facility] Discussed concerns about exe rcise : promote physical activity Last Documented On 4 8:44AM ; [facility] Discussed nutritional needs teach healthy choices including fruits and vegetables Last Documented On 4 1:26PM ; [facility] Patient education about a pr oper diet Last Documented On 4 1:26PM ; [facility] Discussed concerns about exe rcise : promote physical activity Last Documented On 4 1:26PM ; [facility] Discussed nutritional needs teach healthy choices including fruits and vegetables Last Documented On 3 10:55AM ; [facility] Patient education about a pr oper diet Last Documented On 3 10:55AM ; [facility] Discussed concerns about exe rcise : promote physical activity Last Documented On 3 10:55AM ; [facility] Discussed nutritional needs teach healthy choices including fruits and vegetables Last Documented On 3 9:37AM ; [facility] Patient education about a pr oper diet Last Documented On 3 9:37AM ; [facility] Discussed concerns about exe rcise : promote physical activity Last Documented On 3 9:37AM ; [facility] Not requesting contraception Last Documented On 3 9:37AM ; [facility] Discussed nutritional needs teach healthy choices including fruits and vegetables Last Documented On 3 9:20AM ; [facility] Patient [...] [facility] Patient [...] [facility] Patient [...] vegetables Last Documented On 3 11:28AM ; [facility] Patient education about a pr oper diet Last Documented On 3 11:28AM ; [facility] Discussed concerns about exe rcise : promote physical activity Last Documented On 3 11:28AM ; [facility] Discussed nutritional needs teach healthy choices including fruits and vegetables Last Documented On 2 2:01PM ; [facility] Patient education about a pr oper diet Last Documented On 2 2:01PM ; [facility] Discussed concerns about exe rcise : promote physical activity Last Documented On 2 2:01PM ; [facility] Discussed nutritional needs teach healthy choices including fruits and vegetables Last Documented On 2 2:11PM ; [facility] Patient education about a pr oper diet Last Documented On 2 2:11PM ; [facility] Discussed concerns about exe rcise : promote physical activity Last Documented On 2 2:11PM ; [facility] Discussed current self-care methods/coping skills. ~Validated and normalized pt's feelings while assisting patient process recent events. ~Discussed ongoing counseling. ~Discussed lifestyle changes to address chronic illness. ~Supported patient's personal health goals ~wordfinds. walk, read, eat, enjoy my best friesnd Last Documented On 2 5:54PM ; [facility] Discussed nutritional needs teach healthy choices including fruits and vegetables Last Documented On 2 10:04AM ; [facility] Patient education about a pr oper diet Last Documented On 2 10:04AM ; [facility] Discussed concerns about exe rcise : promote physical activity Last Documented On 2 10:04AM ; [facility] Discussed nutritional needs teach healthy choices including fruits and vegetables Last Documented On 2 1:25PM ; [facility] Patient education about a pr oper diet Last Documented On 2 1:25PM ; [facility] Discussed concerns about exe rcise : promote physical activity Last Documented On 2 1:25PM ; [facility] Discussed nutritional needs teach healthy choices including fruits and vegetables Last Documented On 1 10:08AM ; [facility] Patient education about a pr oper diet Last Documented On 1 10:08AM ; [facility] Discussed concerns about exe rcise : promote physical activity Last Documented On 1 10:08AM ; [facility] Discussed nutritional needs teach healthy choices including fruits and vegetables Last Documented On 1 1:12PM ; [facility] Patient education about a pr oper diet Last Documented On 1 1:12PM ; [facility] Patient education about a pr oper diet Last Documented On 1 1:30PM ; [facility] Patient education about meal planning Last Documented On 1 1:30PM ; [facility] Education about changing eat ing habits Last Documented On 1 1:30PM ; [facility] Patient education about high fiber diet Last Documented On 1 1:30PM ; [facility] Patient education about low fat diet Last Documented On 1 1:30PM ; [facility] Patient education about low cholesterol diet Last Documented On 1 1:30PM ; [facility] Patient education about low carbohydrate diet Last Documented On 1 1:30PM ; [facility] Patient education about high protein diet Last Documented On 1 1:30PM ; [facility] Discussed concerns about exe rcise : promote physical activity Last Documented On 1 1:12PM ; [facility] Education/counseling conduct ed by pharmacist Last Documented On 0 1:39PM ; [facility] Vaccination counseling Last Documented On 0 1:39PM ; [facility] Discussed concerns about exe rcise : promote physical activity Last Documented On 0 2:16PM ; [facility] Patient goals decrease short ness of breath episodes Last Documented On 0 2:11PM ; [facility] Patient states that she uses her [...] recently Last Documented On 0 2:24PM ; [facility] Patient education about a pr oper diet Last Documented On 0 2:54PM ; [facility] Patient education about meal planning Last Documented On 0 2:54PM ; [facility] Education about changing eat ing habits Last Documented On 0 2:54PM ; [facility] Patient education about high fiber diet Last Documented On 0 2:54PM ; [facility] Patient education about low fat diet Last Documented On 0 2:54PM ; [facility] Patient education about low cholesterol diet Last Documented On 0 2:54PM ; [facility] Patient education about low carbohydrate diet Last Documented On 0 2:54PM ; [facility] Patient education about high protein diet Last Documented On 0 2:54PM ; [facility] Discussed nutritional needs teach healthy choices including fruits and vegetables Last Documented On 0 11:11AM ; [facility] Patient education about a pr oper diet Last Documented On 0 11:11AM ; [facility] Patient education about a pr oper diet Last Documented On 0 11:28AM ; [facility] Patient education about meal planning Last Documented On 0 11:28AM ; [facility] Education about changing eat ing habits Last Documented On 0 11:28AM ; [facility] Patient education about high fiber diet Last Documented On 0 11:28AM ; [facility] Patient education about low fat diet Last Documented On 0 11:28AM ; [facility] Patient education about low cholesterol diet Last Documented On 0 11:28AM ; [facility] Patient education about low carbohydrate diet Last Documented On 0 11:28AM ; [facility] Patient education about high protein diet Last Documented On 0 11:28AM ; [facility] Discussed concerns about exe rcise : promote physical activity Last Documented On 0 11:11AM ; [facility] Education/counseling conduct ed by pharmacist Last Documented On 0 1:41PM ; [facility] Patient states that she lonnie gonzalez [...] own Last Documented On 0 2:08PM ; [facility] Education/counseling conduct ed by pharmacist Last Documented On 9 1:12PM ; [facility] Patient states that she lonnie gonzalez has issues with her inhaler with the spacer. Patient did not bring in inhaler or spacer. Patient was told to bring in inhalers at next scheduled visit for pharmacist to assess inhalation technique. Patient is agreeable Last Documented On 9 1:13PM ; [facility] Patient goals Start using ch deon to help with inhaling dulera Last Documented On 9 2:40PM ; [facility] Patient states that she is g [...] vaccines Last Documented On 9 2:51PM ; [facility] Discussed nutritional needs teach healthy choices including fruits and vegetables Last Documented On 9 9:29AM ; [facility] Patient education about a pr oper diet Last Documented On 9 9:29AM ; [facility] Discussed concerns about exe rcise : promote physical activity Last Documented On 9 9:29AM ; [facility] Work Phone: [phone] Instructions Includes: Instructions for all patient encounters Instructions to patient Intervention and counseling on cessation of tobacco use, 3-10 minutes Discussed medication and nicotine replacement for tobacco cessation Last Documented On 3 8:54AM ; [facility] Intervention and counseling on cessation of tobacco use, 3-10 minutes Discussed medication and nicotine replacement for tobacco cessation Last Documented On 2 1:56PM ; [facility] Intervention and counseling on cessation of tobacco use, 3-10 minutes Last Documented On 0 2:07PM ; [facility] Return to the clinic if cond ition worsens or new symptoms arise Last Documented On 9 1:59PM ; [facility] Intervention and counseling on cessation of tobacco use, 3-10 minutes Last Documented On 9 10:39AM ; [facility] Education and Decision Aids were provided during visit for: Discussed nutritional needs teach healthy choices including fruits and vegetables Last Documented On 4 8:44AM ; [facility] Patient education about a pr oper diet Last Documented On 4 8:44AM ; [facility] Discussed concerns about exe rcise : promote physical activity Last Documented On 4 8:44AM ; [facility] Discussed nutritional needs teach healthy choices including fruits and vegetables Last Documented On 4 1:26PM ; [facility] Patient education about a pr oper diet Last Documented On 4 1:26PM ; [facility] Discussed concerns about exe rcise : promote physical activity Last Documented On 4 1:26PM ; [facility] Discussed nutritional needs teach healthy choices including fruits and vegetables Last Documented On 3 10:55AM ; [facility] Patient education about a pr oper diet Last Documented On 3 10:55AM ; [facility] Discussed concerns about exe rcise : promote physical activity Last Documented On 3 10:55AM ; [facility] Discussed nutritional needs teach healthy choices including fruits and vegetables Last Documented On 3 9:37AM ; [facility] Patient education about a pr oper diet Last Documented On 3 9:37AM ; [facility] Discussed concerns about exe rcise : promote physical activity Last Documented On 3 9:37AM ; [facility] Not requesting contraception Last Documented On 3 9:37AM ; [facility] Discussed nutritional needs teach healthy choices including fruits and vegetables Last Documented On 3 9:20AM ; [facility] Patient education about a pr oper diet Last Documented On 3 9:20AM ; [facility] Discussed concerns about exe rcise : promote physical activity Last Documented On 3 9:20AM ; [facility] Discussed nutritional needs teach healthy choices including fruits and vegetables Last Documented On 3 2:02PM ; [facility] Patient education about a pr [...] [facility] Patient education about a pr oper diet Last Documented On 3 8:32AM ; [facility] Discussed concerns about exe rcise : promote physical activity Last Documented On 3 8:32AM ; [facility] Discussed nutritional needs teach healthy choices including fruits and vegetables Last Documented On 3 11:28AM ; [facility] Patient education about a pr oper diet Last Documented On 3 11:28AM ; [facility] Discussed concerns about exe rcise : promote physical activity Last Documented On 3 11:28AM ; [facility] Discussed nutritional needs teach healthy choices including fruits and vegetables Last Documented On 2 2:01PM ; [facility] Patient education about a pr oper diet Last Documented On 2 2:01PM ; [facility] Discussed concerns about exe rcise : promote physical activity Last Documented On 2 2:01PM ; [facility] Discussed nutritional needs teach healthy choices including fruits and vegetables Last Documented On 2 2:11PM ; [facility] Patient education about a pr oper diet Last Documented On 2 2:11PM ; [facility] Discussed concerns about exe rcise : promote physical activity Last Documented On 2 2:11PM ; [facility] Discussed current self-care methods/coping skills. ~Validated and normalized pt's feelings while assisting patient process recent events. ~Discussed ongoing counseling. ~Discussed lifestyle changes to address chronic illness. ~Supported patient's personal health goals ~wordfinds. walk, read, eat, enjoy my best friesnd Last Documented On 2 5:54PM ; [facility] Discussed nutritional needs teach healthy choices including fruits and vegetables Last Documented On 2 10:04AM ; [facility] Patient education about a pr oper diet Last Documented On 2 10:04AM ; [facility] Discussed concerns about exe rcise : promote physical activity Last Documented On 2 10:04AM ; [facility] Discussed nutritional needs teach healthy choices including fruits and vegetables Last Documented On 2 1:25PM ; [facility] Patient education about a pr oper diet Last Documented On 2 1:25PM ; [facility] Discussed concerns about exe rcise : promote physical activity Last Documented On 2 1:25PM ; [facility] Discussed nutritional needs teach healthy choices including fruits and vegetables Last Documented On 1 10:08AM ; [facility] Patient education about a pr oper diet Last Documented On 1 10:08AM ; [facility] Discussed concerns about exe rcise : promote physical activity Last Documented On 1 10:08AM ; [facility] Discussed nutritional needs teach healthy choices including fruits and vegetables Last Documented On 1 1:12PM ; [facility] Patient education about a pr oper diet Last Documented On 1 1:12PM ; [facility] Patient education about a pr oper diet Last Documented On 1 1:30PM ; [facility] Patient education about meal planning Last Documented On 1 1:30PM ; [facility] Education about changing eat ing habits Last Documented On 1 1:30PM ; [facility] Patient education about high fiber diet Last Documented On 1 1:30PM ; [facility] Patient education about low fat diet Last Documented On 1 1:30PM ; [facility] Patient education about low cholesterol diet Last Documented On 1 1:30PM ; [facility] Patient education about low carbohydrate diet Last Documented On 1 1:30PM ; [facility] Patient education about high protein diet Last Documented On 1 1:30PM ; [facility] Discussed concerns about exe rcise : promote physical activity Last Documented On 1 1:12PM ; [facility] Education/counseling conduct ed by pharmacist Last Documented On 0 1:39PM ; [facility] Vaccination counseling Last Documented On 0 1:39PM ; [facility] Discussed concerns about exe rcise : promote physical activity Last Documented On 0 2:16PM ; [facility] Patient goals decrease short ness of breath episodes Last Documented On 0 2:11PM ; [facility] Patient states that she uses her [...] recently Last Documented On 0 2:24PM ; [facility] Patient education about a pr oper diet Last Documented On 0 2:54PM ; [facility] Patient education about meal planning Last Documented On 0 2:54PM ; [facility] Education about changing eat ing habits Last Documented On 0 2:54PM ; [facility] Patient education about high fiber diet Last Documented On 0 2:54PM ; [facility] Patient education about low fat diet Last Documented On 0 2:54PM ; [facility] Patient education about low cholesterol diet Last Documented On 0 2:54PM ; [facility] Patient education about low carbohydrate diet Last Documented On 0 2:54PM ; [facility] Patient education about high protein diet Last Documented On 0 2:54PM ; [facility] Discussed nutritional needs teach healthy choices including fruits and vegetables Last Documented On 0 11:11AM ; [facility] Patient education about a pr oper diet Last Documented On 0 11:11AM ; [facility] Patient education about a pr oper diet Last Documented On 0 11:28AM ; [facility] Patient education about meal planning Last Documented On 0 11:28AM ; [facility] Education about changing eat ing habits Last Documented On 0 11:28AM ; [facility] Patient education about high fiber diet Last Documented On 0 11:28AM ; [facility] Patient education about low fat diet Last Documented On 0 11:28AM ; [facility] Patient education about low cholesterol diet Last Documented On 0 11:28AM ; [facility] Patient education about low carbohydrate diet Last Documented On 0 11:28AM ; [facility] Patient education about high protein diet Last Documented On 0 11:28AM ; [facility] Discussed concerns about exe rcise : promote physical activity Last Documented On 0 11:11AM ; [facility] Education/counseling conduct ed by pharmacist Last Documented On 0 1:41PM ; [facility] Patient states that she lonnie gonzalez [...] own Last Documented On 0 2:08PM ; [facility] Education/counseling conduct ed by pharmacist Last Documented On 9 1:12PM ; [facility] Patient states that she stil l has issues with her inhaler with the spacer. Patient did not bring in inhaler or spacer. Patient was told to bring in inhalers at next scheduled visit for pharmacist to assess inhalation technique. Patient is agreeable Last Documented On 9 1:13PM ; [facility] Patient goals Start using ch deon to help with inhaling dulera Last Documented On 9 2:40PM ; [facility] Patient states that she is g [...] vaccines Last Documented On 9 2:51PM ; [facility] Discussed nutritional needs teach healthy choices including fruits and vegetables Last Documented On 9 9:29AM ; [facility] Patient education about a pr oper diet Last Documented On 9 9:29AM ; [facility] Discussed concerns about exe rcise : promote physical activity Last Documented On 9 9:29AM ; [facility] Work Phone: 1(177) 198-912411-21-2024 Hospital Discharge instructions* Discharge Instructions* Jann Rust MD - 04/23/2024 9:35 PM [...] have any worsening headache, vision changes, new weaknessor numbness, or any other acute medical concern documented in this encounterBon [facility] Discharge instructions* Discharge Instructions* Jesus Mims MD - 04/23/2024 4:50 PM [...] appointment has been provided. documented in this encounterBon [facility] History of Present illness Narrative* Chago Spangler - 04/23/2024 2:38 PM EST [facility] [place] PATIENT NAME: Gail Almeida Shift date: 04/23/2024 Shift day: Shift # 1 Room # Name: Gail Almeida Age: 68 y.o. Gender: female [employer]: [facility] Place of rastaf[facility]: Trauma/Incident type: Stroke Alert Admit Date & Time: 04/23/2024 1:20 PM TRAUMA NAME: None PATIENT/EVENT DESCRIPTION: Gail Almeida is a 68 y.o. female who arrived ED via ground ambulance as stroke alert. Patient kevin admitted to Patient was conscious and responsive when manager enrollment visited. SPIRITUAL [id number]: Patient was raised Jain and very receptive to spiritual care. Patient declined anointing of thesick. Family was not present at the time. Routing Machine Operator called patient's emergency well service floorperson and legal guardian, Alma Louis, at [phone] and left a message. Patient said she would like to have someone notified. Routing Machine Operator provided ministry of presence, offered support, and prayed with patient. Patient expressed appreciation for the blessing she received. PATIENT BELONGINGS: This manager enrollment did not handle patient's belongings. ANY BELONGINGS OF SIGNIFICANT VALUE NOTED: Unknown REGISTRATION STAFF NOTIFIED? Yes WHAT IS YOUR SPIRITUAL CARE PLAN FOR THIS PATIENT?: Follow up visits recommended for ongoing assessment of patient's condition and for more prayers andsupport. . [facility] [phone] documented in this encounterBon [facility] Telephone encounter Note* Telephone Encounter - Rekha Ng - 03/16/2024 10:49 AM EDT Received no call back per [facility] re: rs'ing or confirmation on OP PT needed. [facility] [id number] Miscellaneous Notes* Telephone Encounter - Rekha Ng - 03/16/2024 10:49 AM EDT Received no call back per [facility] re: rs'ing or confirmation on OP PT needed. * Telephone Encounter - Rekha Ng - 03/05/2024 4:44 PM EDT CALL TO NOTE that pending their call back on guarenteed PT Eval time /day is needed to rs, per Pratik documented in this encounterSal[facility] [id number] Telephone encounter Note* Telephone Encounter - Rekha Ng - 03/05/2024 4:44 PM EDT CALL TO NOTE that pending their call back on guarenteed PT Eval time /day is needed to rs, per Pratik [facility] [id number] History of Present illness Narrative* MILLA Minaya - 02/25/2024 1:30 PM EDT Images from the original note were not included. Reason for Appointment: EMG Patient: Gail Almeida : 1955 EMG Computer: [employer] Referring Physician: Dr. 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 No hx of DM. Not on blood thinners. Comments: Procedure was explained to the patient who expressed understanding. Patient appeared to have tolerated the test well despite some discomfort due to the nature of the test. documented in this encounterSalem [facility] [id number] History of Present illness Narrative* Lucy Gilbert, - 02/18/2024 3:00 PM EDT Images from the original note were not included. Chief Complaint: Gait abnormality Subjective Gail Almeida, 68 y.o., female Gail is here for a neurologic consult at the request of Vida Culp CNP for gait abnormality.Patient states that she has noticed some difficulty [...] Past Medical History: Diagnosis Date Arthritis Asthma (CMS/HCC) Bipolar disorder (CMS/HCC) COPD (chronic obstructive pulmonary disease) (CMS/HCC) Diabetes (CMS/HCC) Localized swelling, mass or lump of neck DE (myocardial infarction) (CMS/HCC) 03/2021 Ovarian cancer (CMS/HCC) Parkinson disease (CMS/HCC) Pharyngoesophageal dysphagia Schizophrenia (CMS/HCC) Thyromegaly (CMS/HCC) Past Surgical History: Procedure Laterality Date DILATION [...] Allergies: Aluminum-containing compounds, Amphetamines, Aspirin, Barbiturates, Codeine, Fluoxetine,Ibuprofen, Meperidine, Penicillins, Prednisone, Sulfa antibiotics, Sulfamethoxazole-trimethoprim, Trazodone, [...] reflexes are 2+ and symmetric throughout. Coordination: Rnnygg-wf-bwty testing and rapid alternating movements are normal [...] and determine type and severity. Psychiatric disturbance [place] use Patient does have some subtle signs [...] of mental health issues documented in this encounterSalem [facility] [id number] Instructions Includes: Instructions for all patient encounters Instructions to patient Intervention and counseling on cessation of tobacco use, 3-10 minutes Discussed medication and nicotine replacement for tobacco cessation Last Documented On 3 8:54AM ; [facility] Intervention and counseling on cessation of tobacco use, 3-10 minutes Discussed medication and nicotine replacement for tobacco cessation Last Documented On 2 1:56PM ; [facility] Intervention and counseling on cessation of tobacco use, 3-10 minutes Last Documented On 0 2:07PM ; [facility] Return to the clinic if cond ition worsens or new symptoms arise Last Documented On 9 1:59PM ; [facility] Intervention and counseling on cessation of tobacco use, 3-10 minutes Last Documented On 9 10:39AM ; [facility] Education and Decision Aids were provided during visit for: Discussed nutritional needs teach healthy choices including fruits and vegetables Last Documented On 4 8:44AM ; [facility] Patient education about a pr oper diet Last Documented On 4 8:44AM ; [facility] Discussed concerns about exe rcise : promote physical activity Last Documented On 4 8:44AM ; [facility] Discussed nutritional needs teach healthy choices including fruits and vegetables Last Documented On 4 1:26PM ; [facility] Patient education about a pr oper diet Last Documented On 4 1:26PM ; [facility] Discussed concerns about exe rcise : promote physical activity Last Documented On 4 1:26PM ; [facility] Discussed nutritional needs teach healthy choices including fruits and vegetables Last Documented On 3 10:55AM ; [facility] Patient education about a pr oper diet Last Documented On 3 10:55AM ; [facility] Discussed concerns about exe rcise : promote physical activity Last Documented On 3 10:55AM ; [facility] Discussed nutritional needs teach healthy choices including fruits and vegetables Last Documented On 3 9:37AM ; [facility] Patient education about a pr oper diet Last Documented On 3 9:37AM ; [facility] Discussed concerns about exe rcise : promote physical activity Last Documented On 3 9:37AM ; [facility] Not requesting contraception Last Documented On 3 9:37AM ; [facility] Discussed nutritional needs teach healthy choices including fruits and vegetables Last Documented On 3 9:20AM ; [facility] Patient [...] [facility] Patient [...] [facility] Patient education about a pr oper diet Last Documented On 3 8:32AM ; [facility] Discussed concerns about exe rcise : promote physical activity Last Documented On 3 8:32AM ; [facility] Discussed nutritional needs teach healthy choices including fruits and vegetables Last Documented On 3 11:28AM ; [facility] Patient education about a pr oper diet Last Documented On 3 11:28AM ; [facility] Discussed concerns about exe rcise : promote physical activity Last Documented On 3 11:28AM ; [facility] Discussed nutritional needs teach healthy choices including fruits and vegetables Last Documented On 2 2:01PM ; [facility] Patient education about a pr oper diet Last Documented On 2 2:01PM ; [facility] Discussed concerns about exe rcise : promote physical activity Last Documented On 2 2:01PM ; [facility] Discussed nutritional needs teach healthy choices including fruits and vegetables Last Documented On 2 2:11PM ; [facility] Patient education about a pr oper diet Last Documented On 2 2:11PM ; [facility] Discussed concerns about exe rcise : promote physical activity Last Documented On 2 2:11PM ; [facility] Discussed current self-care methods/coping skills. ~Validated and normalized pt's feelings while assisting patient process recent events. ~Discussed ongoing counseling. ~Discussed lifestyle changes to address chronic illness. ~Supported patient's personal health goals ~wordfinds. walk, read, eat, enjoy my best friesnd Last Documented On 2 5:54PM ; [facility] Discussed nutritional needs teach healthy choices including fruits and vegetables Last Documented On 2 10:04AM ; [facility] Patient education about a pr oper diet Last Documented On 2 10:04AM ; [facility] Discussed concerns about exe rcise : promote physical activity Last Documented On 2 10:04AM ; [facility] Discussed nutritional needs teach healthy choices including fruits and vegetables Last Documented On 2 1:25PM ; [facility] Patient education about a pr oper diet Last Documented On 2 1:25PM ; [facility] Discussed concerns about exe rcise : promote physical activity Last Documented On 2 1:25PM ; [facility] Discussed nutritional needs teach healthy choices including fruits and vegetables Last Documented On 1 10:08AM ; [facility] Patient education about a pr oper diet Last Documented On 1 10:08AM ; [facility] Discussed concerns about exe rcise : promote physical activity Last Documented On 1 10:08AM ; [facility] Discussed nutritional needs teach healthy choices including fruits and vegetables Last Documented On 1 1:12PM ; [facility] Patient education about a pr oper diet Last Documented On 1 1:12PM ; [facility] Patient education about a pr oper diet Last Documented On 1 1:30PM ; [facility] Patient education about meal planning Last Documented On 1 1:30PM ; [facility] Education about changing eat ing habits Last Documented On 1 1:30PM ; [facility] Patient education about high fiber diet Last Documented On 1 1:30PM ; [facility] Patient education about low fat diet Last Documented On 1 1:30PM ; [facility] Patient education about low cholesterol diet Last Documented On 1 1:30PM ; [facility] Patient education about low carbohydrate diet Last Documented On 1 1:30PM ; [facility] Patient education about high protein diet Last Documented On 1 1:30PM ; [facility] Discussed concerns about exe rcise : promote physical activity Last Documented On 1 1:12PM ; [facility] Education/counseling conduct ed by pharmacist Last Documented On 0 1:39PM ; [facility] Vaccination counseling Last Documented On 0 1:39PM ; [facility] Discussed concerns about exe rcise : promote physical activity Last Documented On 0 2:16PM ; [facility] Patient goals decrease short ness of breath episodes Last Documented On 0 2:11PM ; [facility] Patient states that she uses her [...] recently Last Documented On 0 2:24PM ; [facility] Patient education about a pr oper diet Last Documented On 0 2:54PM ; [facility] Patient education about meal planning Last Documented On 0 2:54PM ; [facility] Education about changing eat ing habits Last Documented On 0 2:54PM ; [facility] Patient education about high fiber diet Last Documented On 0 2:54PM ; [facility] Patient education about low fat diet Last Documented On 0 2:54PM ; [facility] Patient education about low cholesterol diet Last Documented On 0 2:54PM ; [facility] Patient education about low carbohydrate diet Last Documented On 0 2:54PM ; [facility] Patient education about high protein diet Last Documented On 0 2:54PM ; [facility] Discussed nutritional needs teach healthy choices including fruits and vegetables Last Documented On 0 11:11AM ; [facility] Patient education about a pr oper diet Last Documented On 0 11:11AM ; [facility] Patient education about a pr oper diet Last Documented On 0 11:28AM ; [facility] Patient education about meal planning Last Documented On 0 11:28AM ; [facility] Education about changing eat ing habits Last Documented On 0 11:28AM ; [facility] Patient education about high fiber diet Last Documented On 0 11:28AM ; [facility] Patient education about low fat diet Last Documented On 0 11:28AM ; [facility] Patient education about low cholesterol diet Last Documented On 0 11:28AM ; [facility] Patient education about low carbohydrate diet Last Documented On 0 11:28AM ; [facility] Patient education about high protein diet Last Documented On 0 11:28AM ; [facility] Discussed concerns about exe rcise : promote physical activity Last Documented On 0 11:11AM ; [facility] Education/counseling conduct ed by pharmacist Last Documented On 0 1:41PM ; [facility] Patient states that she lonnie gonzalez [...] own Last Documented On 0 2:08PM ; [facility] Education/counseling conduct ed by pharmacist Last Documented On 9 1:12PM ; [facility] Patient states that she lonnie gonzalez has issues with her inhaler with the spacer. Patient did not bring in inhaler or spacer. Patient was told to bring in inhalers at next scheduled visit for pharmacist to assess inhalation technique. Patient is agreeable Last Documented On 9 1:13PM ; [facility] Patient goals Start using ch deon to help with inhaling dulera Last Documented On 9 2:40PM ; [facility] Patient states that she is g [...] vaccines Last Documented On 9 2:51PM ; [facility] Discussed nutritional needs teach healthy choices including fruits and vegetables Last Documented On 9 9:29AM ; [facility] Patient education about a pr oper diet Last Documented On 9 9:29AM ; [facility] Discussed concerns about exe rcise : promote physical activity Last Documented On 9 9:29AM ; [facility] Work Phone: [phone]) 630-584408-26-2024 Evaluation note Includes: Assessments for all patient encounters Findings Encounter Date [Z68.25 - Body mass index [B DE] 25.0-25.9, adult] assessment of body mass index Medical Established Patient with Vida Fritz [facility] 01/27/2024 Last Documented On 4 9:12AM ; [facility] Bipolar disorder NOS Medical Established Patient with Vida Fritz [facility] 01/27/2024 Last Documented On 4 9:12AM ; [facility] Chronic obstructive pulmonary disease Me dical Established Patient with Vida Culp [facility] 01/27/2024 Last Documented On 4 9:12AM ; [facility] Disturbance of gait Medical Established Patient with Vida Culp [facility] 01/27/2024 Last Documented On 4 9:12AM ; [facility] Tremor Medical Established Patient with Vida Culp [facility] 01/27/2024 Last Documented On 4 9:12AM ; [facility] Visit for: screening for depression Medi rl Established Patient with Vida Culp [facility] 01/27/2024 Last Documented On 4 9:12AM ; [facility] [R26.89 - Other abnormalitie s of gait and mobility] staggering gait Chart Update with Karla Clark [facility] 11/15/2023 Last Documented On 4 12:07PM ; [facility] [F17.210 - Nicotine dependen ce, cigarettes, uncomplicated] continuous dependence on cigarette smoking Medical Established Patient with Karla Clark [facility] 10/04/2023 Last Documented On 4 6:30PM ; [facility] [Z12.11 - Encounter for scre ening for malignant neoplasm of colon] Colon screening Medical Established Patient with Karla Clark [facility] 10/04/2023 Last Documented On 4 6:30PM ; [facility] [Z68.25 - Body mass index [B DE] 25.0-25.9, adult] assessment of body mass index Medical Established Patient with Karla Clark [facility] 10/04/2023 Last Documented On 4 6:30PM ; [facility] Diabetes Risk Test Score was five score 10/04/2023 Medical Established Patient with Karla Clark [facility] 10/04/2023 Last Documented On 4 6:30PM ; [facility] Encounter for Immunization Medical Estab lished Patient with Karla Clark [facility] 10/04/2023 Last Documented On 4 6:30PM ; [facility] [D48.5 - Neoplasm of uncerta in behavior of skin] skin neoplasm of uncertain behavior Medical Established Patient with Karla Clark [facility] 05/22/2023 Last Documented On 3 1:30PM ; [facility] [Z68.24 - Body mass index [B DE] 24.0-24.9, adult] assessment of body mass index Medical Established Patient with Karla Clark [facility] 05/22/2023 Last Documented On 3 1:30PM ; [facility] Assessment of tobacco use Medical Establ ished Patient with Karla Clark [facility] 05/22/2023 Last Documented On 3 1:30PM ; [facility] [R30.0 - Dysuria] Dysuria Chart Update with Gary Clark INTERNET 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 03/21/2023 Last Documented On 3 11:27AM ; [facility] [Z12.39 - Encounter for othe r screening for malignant neoplasm of breast] visit for: screening for malignant breast neoplasm Medical Established Patient with Aaron Whitaker INTERNET 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 02/28/2023 Last Documented On 3 9:51AM ; [facility] [Z68.24 - Body mass index [B DE] 24.0-24.9, adult] assessment of body mass index Medical Established Patient with Aaron Whitaker INTERNET 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 02/28/2023 Last Documented On 3 9:51AM ; [facility] Assessment of tobacco use Medical Establ ished Patient with Aaron Whitaker INTERNET 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 02/28/2023 Last Documented On 3 9:51AM ; [facility] Chronic obstructive pulmonary disease Me dical Established Patient with Aaron Whitaker INTERNET 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 02/28/2023 Last Documented On 3 9:51AM ; [facility] [J20.9 - Acute bronchitis, unspecified] acute bronchitis Medical Established Patient with Karla Clark INTERNET 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 11/19/2022 Last Documented On 3 10:15AM ; [facility] [M79.621 - Pain in right upp er arm] pain in upper arm Medical Established Patient with Karla Clark INTERNET 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 11/19/2022 Last Documented On 3 10:15AM ; [facility] [Z68.23 - Body mass index [B DE] 23.0-23.9, adult] assessment of body mass index Medical Established Patient with Karla Clark INTERNET 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 11/19/2022 Last Documented On 3 10:15AM ; [facility] [M79.601 - Pain in right arm ] pain in right arm Medical Established Patient with Karla Clark INTERNET 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 09/18/2022 Last Documented On 3 2:33PM ; [facility] [Z68.24 - Body mass index [B DE] 24.0-24.9, adult] assessment of body mass index Medical Established Patient with Karla Clark INTERNET 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 09/18/2022 Last Documented On 3 2:33PM ; [facility] Assessment of tobacco use Medical Establ ished Patient with Karla Clark INTERNET 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 09/18/2022 Last Documented On 3 2:33PM ; [facility] [M25.569 - Pain in unspecifi ed knee] arthralgia of knee / patella / tibia / fibula Medical Established Patient with Karla Clark INTERNET 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 08/27/2022 Last Documented On 3 9:20AM ; [facility] [Z68.24 - Body mass index [B DE] 24.0-24.9, adult] assessment of body mass index Medical Established Patient with Karla Clark INTERNET 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 08/27/2022 Last Documented On 3 9:20AM ; [facility] Intervention and counseling on cessation of tobacco use, 3-10 minutes Discussed medication and nicotine replacement for tobacco cessation Medical Established Patient with Karla Clark INTERNET 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 08/27/2022 Last Documented On 3 9:20AM ; [facility] Nicotine dependence Medical Established Patient with Karla Clark INTERNET 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 08/27/2022 Last Documented On 3 9:20AM ; [facility] Visit for routine adult H&P without abnormal findings Medical Established Patient with Karla Clark CNP 08/27/2022 Last Documented On 3 9:20AM ; [facility] [H92.02 - Otalgia, left ear] earache Med ical Established Patient with Karla Clark INTERNET 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 06/18/2022 Last Documented On 3 12:11PM ; [facility] [M79.604 - Pain in right leg ] pain in right leg Medical Established Patient with Karla Clark INTERNET 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 06/18/2022 Last Documented On 3 12:11PM ; [facility] [Z68.24 - Body mass index [B DE] 24.0-24.9, adult] assessment of body mass index Medical Established Patient with Karla Clark INTERNET 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 06/18/2022 Last Documented On 3 12:11PM ; [facility] Assessment of tobacco use Medical Establ ished Patient with Karla Clark INTERNET 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 06/18/2022 Last Documented On 3 12:11PM ; [facility] Diabetes Risk Test Score was four score 06/18/2022 Medical Established Patient with Karlajulius Clark INTERNET 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 06/18/2022 Last Documented On 3 12:11PM ; [facility] Schizoaffective disorder Established Patient with Yin Feliz [facility] 03/20/2022 Last Documented On 2 12:13AM ; [facility] No cough Medical Established Patient with Karla Amber INTERNET 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 12/20/2021 Last Documented On 2 3:12PM ; [facility] Visit for: screening for hum an immunodeficiency virus Medical Established Patient with Karlajulius Clark INTERNET 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 12/20/2021 Last Documented On 2 3:12PM ; [facility] Z68.24 - Body mass index [BM I] 24.0-24.9, adult Medical Established Patient with Karla Clark INTERNET 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 12/20/2021 Last Documented On 2 3:12PM ; [facility] Bipolar disorder NOS BH Established Patient with Yin Feliz [facility] 11/03/2021 Last Documented On 2 7:00PM ; [facility] Bipolar schizoaffective disorder BH Esta blished Patient with Yin Feliz [facility] 11/03/2021 Last Documented On 2 7:00PM ; [facility] PLAN Medical Established Patient with Don Pino MD 11/03/2021 Last Documented On 2 10:40AM ; [facility] Abnormal electrocardiogram Medical Estab lished Patient with Don Pino MD 11/03/2021 Last Documented On 2 10:40AM ; [facility] Z68.24 - Body mass index [BM I] 24.0-24.9, adult Medical Established Patient with Don Pino MD 11/03/2021 Last Documented On 2 10:40AM ; [facility] Cough Medical Established Patient with Karla Clark INTERNET 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 07/28/2021 Last Documented On 2 2:01PM ; [facility] Intervention and counseling on cessation of tobacco use, 3-10 minutes Discussed medication and nicotine replacement for tobacco cessation Medical Established Patient with Karla Clark INTERNET 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 07/28/2021 Last Documented On 2 2:01PM ; [facility] Nicotine dependence Medical Established Patient with Karla Amber INTERNET 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 07/28/2021 Last Documented On 2 2:01PM ; [facility] Z68.24 - Body mass index [BM I] 24.0-24.9, adult Medical Established Patient with Karla Amber INTERNET 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 07/28/2021 Last Documented On 2 2:01PM ; [facility] Assess Colon screening Medical Established Patie nt with Karlajulius Clark INTERNET 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 05/08/2021 Last Documented On 1 10:59AM ; [facility] Diabetes Risk Test Score was four score 05/08/2021 Medical Established Patient with Karla Clark INTERNET 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 05/08/2021 Last Documented On 1 10:59AM ; [facility] Routine adult history and ph ysical (18-64 yrs) without abnormal findings Medical Established Patient with Karla Clark INTERNET 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 05/08/2021 Last Documented On 1 10:59AM ; [facility] Z68.24 - Body mass index [BM I] 24.0-24.9, adult Medical Established Patient with Karla Clark INTERNET 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 05/08/2021 Last Documented On 1 10:59AM ; [facility] Z68.24 - Body mass index [BM I] 24.0-24.9, adult Medical Established Patient with Karla Amber INTERNET 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 06/17/2020 Last Documented On 1 10:30AM ; [facility] Overweight Medical Established Patient with Karla Amber INTERNET 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 06/06/2020 Last Documented On 1 2:06PM ; [facility] Z68.25 - Body mass index [BM I] 25.0-25.9, adult Medical Established Patient with Karla Amber INTERNET 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 06/06/2020 Last Documented On 1 2:06PM ; [facility] Antiasthmatics [facility] Asthma Clinic-New with Karla Amber INTERNET 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 05/06/2020 Last Documented On 0 7:27PM ; [facility] Assessment of tobacco use CPS [facility]-New with Karla Amber INTERNET 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 05/06/2020 Last Documented On 0 7:27PM ; [facility] Body mass index [facility]-New with Karla Amber INTERNET 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 05/06/2020 Last Documented On 0 7:27PM ; [facility] Chronic obstructive pulmonary disease CP S [facility]-New with Karla Amber INTERNET 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 05/06/2020 Last Documented On 0 7:27PM ; [facility] Overweight [facility]-New with Karla Amber INTERNET 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 05/06/2020 Last Documented On 0 7:27PM ; [facility] Z11.4 - Encounter for screen ing for human immunodeficiency virus [HIV] [facility] Clinic-New with Karlajulius Floresen INTERNET 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 05/06/2020 Last Documented On 0 7:27PM ; [facility] Diabetes Risk Test Score was three score 03/31/2020 Medical Established Patient with Karla Amber INTERNET 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 03/31/2020 Last Documented On 0 3:22PM ; [facility] Overweight Medical Established Patient with Karla Amber INTERNET 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 03/31/2020 Last Documented On 0 3:22PM ; [facility] Z68.25 - Body mass index [BM I] 25.0-25.9, adult Medical Established Patient with Karla Floresen INTERNET 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 03/31/2020 Last Documented On 0 3:22PM ; [facility] Encounter for Immunization Nurse Visit with Gary Clark INTERNET 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 03/14/2020 Last Documented On 0 5:11PM ; [facility] Body mass index Medical Established Patient with Karla Amber INTERNET 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 02/26/2020 Last Documented On 0 1:18PM ; [facility] Overweight Medical Established Patient with Karla Amber INTERNET 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 02/26/2020 Last Documented On 0 1:18PM ; [facility] Overweight Medical Established Patient with Karla Amber INTERNET 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 07/23/2019 Last Documented On 0 2:33PM ; [facility] Z68.27 - Body mass index (BM I) 27.0-27.9, adult Medical Established Patient with Karla Clark INTERNET 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 07/23/2019 Last Documented On 0 2:33PM ; [facility] Occasional asthma CPS- Asthma Clinic- F/U with A french Clark INTERNET 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 06/05/2019 Last Documented On 0 7:04PM ; [facility] Overweight CPS- [facility]- F/U with Aim julius Clark INTERNET 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 06/05/2019 Last Documented On 0 7:04PM ; [facility] Z68.27 - Body mass index (BM I) 27.0-27.9 adult CPS- [facility]- F/U with Karla Clark INTERNET 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 06/05/2019 Last Documented On 0 7:04PM ; [facility] Occasional asthma CPS Med Review with Karla dinh INTERNET 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 04/23/2019 Last Documented On 9 4:01PM ; [facility] Overweight CPS Med Review with Karla Clark INTERNET 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 04/23/2019 Last Documented On 9 4:01PM ; [facility] Z68.27 - Body mass index (BM I) 27.0-27.9 adult CPS Med Review with Karla Clark INTERNET 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 04/23/2019 Last Documented On 9 4:01PM ; [facility] Acute pharyngitis Medical Established Patient wi th Brandy Warren INTERNET 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 04/15/2019 Last Documented On 9 12:31PM ; [facility] Asthmatic bronchitis with ac [place] exacerbation Medical Established Patient with Brandy Warren INTERNET 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 04/15/2019 Last Documented On 9 12:31PM ; [facility] Fagerstrom Score was two Medical Established Pat ient with Brandy Warren INTERNET 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 04/15/2019 Last Documented On 9 12:31PM ; [facility] PHQ-9: total score was three 04/15/2019 Medical Established Patient with Brandy Warren INTERNET 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 04/15/2019 Last Documented On 9 12:31PM ; [facility] Body mass index Medical Established Patient with Karla Amber INTERNET 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 03/05/2019 Last Documented On 9 10:27AM ; [facility] Diabetes Risk Test Score was three score Medical Established Patient with Karla Amber INTERNET 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 03/05/2019 Last Documented On 9 10:27AM ; [facility] Overweight Medical Established Patient with Karla Amber INTERNET 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 03/05/2019 Last Documented On 9 10:27AM ; [facility] Z68.28 - Body mass index (BM I) 28.0-28.9, adult Medical Established Patient with Karla Amber INTERNET 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 12/22/2018 Last Documented On 9 10:32AM ; [facility] Assess routine adult history and physical (18 - 64 yrs) Medical Established Patient with Karla Amber INTERNET 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 11/06/2018 Last Documented On 9 2:26PM ; [facility] Overweight Medical Established Patient with Karla Amber INTERNET 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 11/06/2018 Last Documented On 9 2:26PM ; [facility] Z68.28 - Body mass index (BM I) 28.0-28.9, adult Medical Established Patient with Karla Amber INTERNET 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 11/06/2018 Last Documented On 9 2:26PM ; [facility] Assess dysphagia Medical Established Patient wit h Karla Amber INTERNET 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 09/11/2018 Last Documented On 9 10:53AM ; [facility] Assess routine adult history and physical (18 - 64 yrs) Medical Established Patient with Karla Amber INTERNET 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 09/11/2018 Last Documented On 9 10:53AM ; [facility] Assess primary insomnia with sleep apnea Medical Established Patient with Karla Amber INTERNET 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 09/04/2018 Last Documented On 9 2:23PM ; [facility] Assess routine adult history and physical (18 - 64 yrs) Medical Established Patient with Karla Amber INTERNET 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 09/04/2018 Last Documented On 9 2:23PM ; [facility] Overweight Medical Established Patient with Karla Amber INTERNET 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 09/04/2018 Last Documented On 9 2:23PM ; [facility] Z68.29 - Body mass index (BM I) 29.0-29.9, adult Medical Established Patient with Karla Clark INTERNET 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 09/04/2018 Last Documented On 9 2:23PM ; [facility] Assess vaginal candidiasis Medical Estab lished Patient with Karla Clark INTERNET 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 07/31/2018 Last Documented On 9 2:12PM ; [facility] Work Phone: [phone]) 598-768008-26-2024 Evaluation note Includes: Assessments for all patient encounters Findings Encounter Date [Z68.25 - Body mass index [B DE] 25.0-25.9, adult] assessment of body mass index Medical Established Patient with Vida Culp [facility] 01/27/2024 Last Documented On 4 9:12AM ; [facility] Bipolar disorder NOS Medical Established Patient with Vida Culp [facility] 01/27/2024 Last Documented On 4 9:12AM ; [facility] Chronic obstructive pulmonary disease Me dical Established Patient with Vida Culp [facility] 01/27/2024 Last Documented On 4 9:12AM ; [facility] Disturbance of gait Medical Established Patient with Vida Culp [facility] 01/27/2024 Last Documented On 4 9:12AM ; [facility] Tremor Medical Established Patient with Vida Culp [facility] 01/27/2024 Last Documented On 4 9:12AM ; [facility] Visit for: screening for depression [facility] rl Established Patient with Vida Culp [facility] 01/27/2024 Last Documented On 4 9:12AM ; [facility] [R26.89 - Other abnormalitie s of gait and mobility] staggering gait Chart Update with Karla Clark [facility] 11/15/2023 Last Documented On 4 12:07PM ; [facility] [F17.210 - Nicotine dependen ce, cigarettes, uncomplicated] continuous dependence on cigarette smoking Medical Established Patient with Karla Clark INTERNET 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 10/04/2023 Last Documented On 4 6:30PM ; [facility] [Z12.11 - Encounter for scre ening for malignant neoplasm of colon] Colon screening Medical Established Patient with Karla Clark CNP 10/04/2023 Last Documented On 4 6:30PM ; [facility] [Z68.25 - Body mass index [B DE] 25.0-25.9, adult] assessment of body mass index Medical Established Patient with Karla Clark CNP 10/04/2023 Last Documented On 4 6:30PM ; [facility] Diabetes Risk Test Score was five score 10/04/2023 Medical Established Patient with Karla Clark INTERNET 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 10/04/2023 Last Documented On 4 6:30PM ; [facility] Encounter for Immunization Medical Estab lished Patient with Karla Clark INTERNET 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 10/04/2023 Last Documented On 4 6:30PM ; [facility] [D48.5 - Neoplasm of uncerta in behavior of skin] skin neoplasm of uncertain behavior Medical Established Patient with Karla Clark INTERNET 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 05/22/2023 Last Documented On 3 1:30PM ; [facility] [Z68.24 - Body mass index [B DE] 24.0-24.9, adult] assessment of body mass index Medical Established Patient with Karla Clark INTERNET 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 05/22/2023 Last Documented On 3 1:30PM ; [facility] Assessment of tobacco use Medical Establ ished Patient with Karla Clark INTERNET 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 05/22/2023 Last Documented On 3 1:30PM ; [facility] [R30.0 - Dysuria] Dysuria Chart Update with Gary Clark [facility] 03/21/2023 Last Documented On 3 11:27AM ; [facility] [Z12.39 - Encounter for othe r screening for malignant neoplasm of breast] visit for: screening for malignant breast neoplasm Medical Established Patient with Aaron Campbellharpreet INTERNET 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 02/28/2023 Last Documented On 3 9:51AM ; [facility] [Z68.24 - Body mass index [B DE] 24.0-24.9, adult] assessment of body mass index Medical Established Patient with Aaron Whitaker INTERNET 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 02/28/2023 Last Documented On 3 9:51AM ; [facility] Assessment of tobacco use Medical Establ ished Patient with Aaron Whitaker INTERNET 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 02/28/2023 Last Documented On 3 9:51AM ; [facility] Chronic obstructive pulmonary disease Me dical Established Patient with Aaron Whitaker INTERNET 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 02/28/2023 Last Documented On 3 9:51AM ; [facility] [J20.9 - Acute bronchitis, unspecified] acute bronchitis Medical Established Patient with Karla Clark INTERNET 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 11/19/2022 Last Documented On 3 10:15AM ; [facility] [M79.621 - Pain in right upp er arm] pain in upper arm Medical Established Patient with Karlajulius Clark INTERNET 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 11/19/2022 Last Documented On 3 10:15AM ; [facility] [Z68.23 - Body mass index [B DE] 23.0-23.9, adult] assessment of body mass index Medical Established Patient with Karla Clark INTERNET 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 11/19/2022 Last Documented On 3 10:15AM ; [facility] [M79.601 - Pain in right arm ] pain in right arm Medical Established Patient with Karla Clark INTERNET 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 09/18/2022 Last Documented On 3 2:33PM ; [facility] [Z68.24 - Body mass index [B DE] 24.0-24.9, adult] assessment of body mass index Medical Established Patient with Karla Clark INTERNET 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 09/18/2022 Last Documented On 3 2:33PM ; [facility] Assessment of tobacco use Medical Establ ished Patient with Karla Amber INTERNET 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 09/18/2022 Last Documented On 3 2:33PM ; [facility] [M25.569 - Pain in unspecifi ed knee] arthralgia of knee / patella / tibia / fibula Medical Established Patient with Karlajulius Clark INTERNET 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 08/27/2022 Last Documented On 3 9:20AM ; [facility] [Z68.24 - Body mass index [B DE] 24.0-24.9, adult] assessment of body mass index Medical Established Patient with Karla Amber INTERNET 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 08/27/2022 Last Documented On 3 9:20AM ; [facility] Intervention and counseling on cessation of tobacco use, 3-10 minutes Discussed medication and nicotine replacement for tobacco cessation Medical Established Patient with Karla Clark INTERNET 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 08/27/2022 Last Documented On 3 9:20AM ; [facility] Nicotine dependence Medical Established Patient with Karla Clark INTERNET 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 08/27/2022 Last Documented On 3 9:20AM ; [facility] Visit for routine adult H&P without abnormal findings Medical Established Patient with Karla Clark INTERNET 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 08/27/2022 Last Documented On 3 9:20AM ; [facility] [H92.02 - Otalgia, left ear] earache Med ical Established Patient with Karla Clark INTERNET 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 06/18/2022 Last Documented On 3 12:11PM ; [facility] [M79.604 - Pain in right leg ] pain in right leg Medical Established Patient with Karla Clark INTERNET 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 06/18/2022 Last Documented On 3 12:11PM ; [facility] [Z68.24 - Body mass index [B DE] 24.0-24.9, adult] assessment of body mass index Medical Established Patient with Karla Clark INTERNET 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 06/18/2022 Last Documented On 3 12:11PM ; [facility] Assessment of tobacco use Medical Establ ished Patient with Karla Clark INTERNET 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 06/18/2022 Last Documented On 3 12:11PM ; [facility] Diabetes Risk Test Score was four score 06/18/2022 Medical Established Patient with Karla Clark INTERNET 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 06/18/2022 Last Documented On 3 12:11PM ; [facility] Schizoaffective disorder Established Patient with Yin Feliz [facility] 03/20/2022 Last Documented On 2 12:13AM ; [facility] [facility] cough Medical Established Patient with Karla Clakr INTERNET 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 12/20/2021 Last Documented On 2 3:12PM ; [facility] Visit for: screening for hum an immunodeficiency virus Medical Established Patient with Karla Amber INTERNET 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 12/20/2021 Last Documented On 2 3:12PM ; [facility] Z68.24 - Body mass index [BM I] 24.0-24.9, adult Medical Established Patient with Karla Amber INTERNET 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 12/20/2021 Last Documented On 2 3:12PM ; [facility] Bipolar disorder NOS BH Established Patient with Yin Feliz LPCC-S 11/03/2021 Last Documented On 2 7:00PM ; [facility] Bipolar schizoaffective disorder BH Esta blished Patient with Yin Feliz LPCC-S 11/03/2021 Last Documented On 2 7:00PM ; [facility] PLAN Medical Established Patient with Don Pino MD 11/03/2021 Last Documented On 2 10:40AM ; [facility] Abnormal electrocardiogram Medical Estab lished Patient with Don Pino MD 11/03/2021 Last Documented On 2 10:40AM ; [facility] Z68.24 - Body mass index [BM I] 24.0-24.9, adult Medical Established Patient with Don Pino MD 11/03/2021 Last Documented On 2 10:40AM ; [facility] Cough Medical Established Patient with Karla Amber INTERNET 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 07/28/2021 Last Documented On 2 2:01PM ; [facility] Intervention and counseling on cessation of tobacco use, 3-10 minutes Discussed medication and nicotine replacement for tobacco cessation Medical Established Patient with Karla Amber INTERNET 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 07/28/2021 Last Documented On 2 2:01PM ; [facility] Nicotine dependence Medical Established Patient with Karla Amber INTERNET 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 07/28/2021 Last Documented On 2 2:01PM ; [facility] Z68.24 - Body mass index [BM I] 24.0-24.9, adult Medical Established Patient with Karla Amber INTERNET 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 07/28/2021 Last Documented On 2 2:01PM ; [facility] Assess Colon screening Medical Established Patie nt with Karla Amber INTERNET 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 05/08/2021 Last Documented On 1 10:59AM ; [facility] Diabetes Risk Test Score was four score 05/08/2021 Medical Established Patient with Karla Amber INTERNET 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 05/08/2021 Last Documented On 1 10:59AM ; [facility] Routine adult history and ph ysical (18-64 yrs) without abnormal findings Medical Established Patient with Karla Amber INTERNET 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 05/08/2021 Last Documented On 1 10:59AM ; [facility] Z68.24 - Body mass index [BM I] 24.0-24.9, adult Medical Established Patient with Karla Amber INTERNET 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 05/08/2021 Last Documented On 1 10:59AM ; [facility] Z68.24 - Body mass index [BM I] 24.0-24.9, adult Medical Established Patient with Karla Amber INTERNET 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 06/17/2020 Last Documented On 1 10:30AM ; [facility] Overweight Medical Established Patient with Karla Amber INTERNET 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 06/06/2020 Last Documented On 1 2:06PM ; [facility] Z68.25 - Body mass index [BM I] 25.0-25.9, adult Medical Established Patient with Karla Amber INTERNET 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 06/06/2020 Last Documented On 1 2:06PM ; [facility] Antiasthmatics [facility] Asthma Clinic-New with Karla Amber INTERNET 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 05/06/2020 Last Documented On 0 7:27PM ; [facility] Assessment of tobacco use [facility] Clinic-New with Karla Amber INTERNET 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 05/06/2020 Last Documented On 0 7:27PM ; [facility] Body mass index [facility] Asthma Clinic-New with Karla Amber INTERNET 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 05/06/2020 Last Documented On 0 7:27PM ; [facility] Chronic obstructive pulmonary disease S [facility]-New with Karla Amber INTERNET 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 05/06/2020 Last Documented On 0 7:27PM ; [facility] Overweight [facility] Asthma Clinic-New with Karla Amber INTERNET 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 05/06/2020 Last Documented On 0 7:27PM ; [facility] Z11.4 - Encounter for screen ing for human immunodeficiency virus [HIV] [facility] Asthma Clinic-New with Karla Clark INTERNET 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 05/06/2020 Last Documented On 0 7:27PM ; [facility] Diabetes Risk Test Score was three score 03/31/2020 Medical Established Patient with Karlajulius Floresen INTERNET 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 03/31/2020 Last Documented On 0 3:22PM ; [facility] Overweight Medical Established Patient with Karlajulius Floresen INTERNET 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 03/31/2020 Last Documented On 0 3:22PM ; [facility] Z68.25 - Body mass index [BM I] 25.0-25.9, adult Medical Established Patient with Karla Floresen INTERNET 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 03/31/2020 Last Documented On 0 3:22PM ; [facility] Encounter for Immunization Nurse Visit with Gary Clark INTERNET 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 03/14/2020 Last Documented On 0 5:11PM ; [facility] Body mass index Medical Established Patient with Karla Floresen INTERNET 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 02/26/2020 Last Documented On 0 1:18PM ; [facility] Overweight Medical Established Patient with Karlajulius Floresen INTERNET 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 02/26/2020 Last Documented On 0 1:18PM ; [facility] Overweight Medical Established Patient with Karla Floresen INTERNET 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 07/23/2019 Last Documented On 0 2:33PM ; [facility] Z68.27 - Body mass index (BM I) 27.0-27.9, adult Medical Established Patient with Karla Floresen INTERNET 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 07/23/2019 Last Documented On 0 2:33PM ; [facility] Occasional asthma C[facility]- [facility] Clinic- F/U with A french Floresen INTERNET 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 06/05/2019 Last Documented On 0 7:04PM ; [facility] Overweight CPS- [facility]- F/U with Aim julius Floresen INTERNET 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 06/05/2019 Last Documented On 0 7:04PM ; [facility] Z68.27 - Body mass index (BM I) 27.0-27.9 adult CPS- [facility]- F/U with Karla Clark INTERNET 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 06/05/2019 Last Documented On 0 7:04PM ; [facility] Occasional asthma CPS Med Review with Karlajulius dinh INTERNET 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 04/23/2019 Last Documented On 9 4:01PM ; [facility] Overweight CPS Med Review with Karlajulius Clark INTERNET 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 04/23/2019 Last Documented On 9 4:01PM ; [facility] Z68.27 - Body mass index (BM I) 27.0-27.9 adult CPS Med Review with Karlajulius Clark INTERNET 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 04/23/2019 Last Documented On 9 4:01PM ; [facility] Acute pharyngitis Medical Established Patient wi th Brandy Kelley INTERNET 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 04/15/2019 Last Documented On 9 12:31PM ; [facility] Asthmatic bronchitis with ac [place] exacerbation Medical Established Patient with Brandy Warren INTERNET 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 04/15/2019 Last Documented On 9 12:31PM ; [facility] Fagerstrom Score was two Medical Established Pat ient with Brandy Serranoer INTERNET 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 04/15/2019 Last Documented On 9 12:31PM ; [facility] PHQ-9: total score was three 04/15/2019 Medical Established Patient with Brandy Warren INTERNET 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 04/15/2019 Last Documented On 9 12:31PM ; [facility] Body mass index Medical Established Patient with Karla Clark INTERNET 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 03/05/2019 Last Documented On 9 10:27AM ; [facility] Diabetes Risk Test Score was three score Medical Established Patient with Karla Amber INTERNET 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 03/05/2019 Last Documented On 9 10:27AM ; [facility] Overweight Medical Established Patient with Karla Amber INTERNET 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 03/05/2019 Last Documented On 9 10:27AM ; [facility] Z68.28 - Body mass index (BM I) 28.0-28.9, adult Medical Established Patient with Karlajulius Clark INTERNET TECHNOLOGY MANAGER 12/22/2018 Last Documented On 9 10:32AM ; [facility] Assess routine adult history and physical (18 - 64 yrs) Medical Established Patient with Karla Amber INTERNET TECHNOLOGY MANAGER 11/06/2018 Last Documented On 9 2:26PM ; [facility] Overweight Medical Established Patient with Karla Amber INTERNET TECHNOLOGY MANAGER 11/06/2018 Last Documented On 9 2:26PM ; [facility] Z68.28 - Body mass index (BM I) 28.0-28.9, adult Medical Established Patient with Karla Amber INTERNET TECHNOLOGY MANAGER 11/06/2018 Last Documented On 9 2:26PM ; [facility] Assess dysphagia Medical Established Patient wit h Karlajulius Floresen INTERNET TECHNOLOGY MANAGER 09/11/2018 Last Documented On 9 10:53AM ; [facility] Assess routine adult history and physical (18 - 64 yrs) Medical Established Patient with Karla Amber INTERNET TECHNOLOGY MANAGER 09/11/2018 Last Documented On 9 10:53AM ; [facility] Assess primary insomnia with sleep apnea Medical Established Patient with Karla Amber INTERNET TECHNOLOGY MANAGER 09/04/2018 Last Documented On 9 2:23PM ; [facility] Assess routine adult history and physical (18 - 64 yrs) Medical Established Patient with Karla Amber INTERNET TECHNOLOGY MANAGER 09/04/2018 Last Documented On 9 2:23PM ; [facility] Overweight Medical Established Patient with Karlajulius Floresen INTERNET TECHNOLOGY MANAGER 09/04/2018 Last Documented On 9 2:23PM ; [facility] Z68.29 - Body mass index (BM I) 29.0-29.9, adult Medical Established Patient with Karlajulius Floresen INTERNET TECHNOLOGY MANAGER 09/04/2018 Last Documented On 9 2:23PM ; [facility] Assess vaginal candidiasis Medical Estab lished Patient with Karla Amber INTERNET TECHNOLOGY MANAGER 07/31/2018 Last Documented On 9 2:12PM ; [facility] Work Phone: [phone]) 702-266008-26-2024 Evaluation note Includes: Assessments for all patient encounters Findings Encounter Date [Z68.25 - Body mass index [B DE] 25.0-25.9, adult] assessment of body mass index Medical Established Patient with Vida Fritz INTERNET TECHNOLOGY MANAGER 01/27/2024 Last Documented On 4 9:12AM ; [facility] Bipolar disorder NOS Medical Established Patient with Vida Culp [facility] 01/27/2024 Last Documented On 4 9:12AM ; [facility] Chronic obstructive pulmonary disease Me dical Established Patient with Vida Culp [facility] 01/27/2024 Last Documented On 4 9:12AM ; [facility] Disturbance of gait Medical Established Patient with Vida Culp INTERNET TECHNOLOGY MANAGER 01/27/2024 Last Documented On 4 9:12AM ; [facility] Tremor Medical Established Patient with Vida Culp [facility] 01/27/2024 Last Documented On 4 9:12AM ; [facility] Visit for: screening for depression Medi [facility] Established Patient with Vida Culp [facility] 01/27/2024 Last Documented On 4 9:12AM ; [facility] [R26.89 - Other abnormalitie s of gait and mobility] staggering gait Chart Update with Karla Clark [facility] 11/15/2023 Last Documented On 4 12:07PM ; [facility] [F17.210 - Nicotine dependen ce, cigarettes, uncomplicated] continuous dependence on cigarette smoking Medical Established Patient with Karla Clark [facility] 10/04/2023 Last Documented On 4 6:30PM ; [facility] [Z12.11 - Encounter for scre ening for malignant neoplasm of colon] Colon screening Medical Established Patient with Karla Clark [facility] 10/04/2023 Last Documented On 4 6:30PM ; [facility] [Z68.25 - Body mass index [B DE] 25.0-25.9, adult] assessment of body mass index Medical Established Patient with Karla Clark [facility] 10/04/2023 Last Documented On 4 6:30PM ; [facility] Diabetes Risk Test Score was five score 10/04/2023 Medical Established Patient with Karla Clark [facility] 10/04/2023 Last Documented On 4 6:30PM ; [facility] Encounter for Immunization Medical Estab lished Patient with Karla Clark [facility] 10/04/2023 Last Documented On 4 6:30PM ; [facility] [D48.5 - Neoplasm of uncerta in behavior of skin] skin neoplasm of uncertain behavior Medical Established Patient with Karla Clark INTERNET TECHNOLOGY MANAGER 05/22/2023 Last Documented On 3 1:30PM ; [facility] [Z68.24 - Body mass index [B DE] 24.0-24.9, adult] assessment of body mass index Medical Established Patient with Karla Clark INTERNET TECHNOLOGY MANAGER 05/22/2023 Last Documented On 3 1:30PM ; [facility] Assessment of tobacco use Medical Establ ished Patient with Karla Clark INTERNET TECHNOLOGY MANAGER 05/22/2023 Last Documented On 3 1:30PM ; [facility] [R30.0 - Dysuria] Dysuria Chart Update with Gary Clark INTERNET TECHNOLOGY MANAGER 03/21/2023 Last Documented On 3 11:27AM ; [facility] [Z12.39 - Encounter for othe r screening for malignant neoplasm of breast] visit for: screening for malignant breast neoplasm Medical Established Patient with Aaron Whitaker INTERNET TECHNOLOGY MANAGER 02/28/2023 Last Documented On 3 9:51AM ; [facility] [Z68.24 - Body mass index [B DE] 24.0-24.9, adult] assessment of body mass index Medical Established Patient with Aaron Whitaker INTERNET TECHNOLOGY MANAGER 02/28/2023 Last Documented On 3 9:51AM ; [facility] Assessment of tobacco use Medical Establ ished Patient with Aaron Whitaker INTERNET TECHNOLOGY MANAGER 02/28/2023 Last Documented On 3 9:51AM ; [facility] Chronic obstructive pulmonary disease Me dical Established Patient with Lina Penix INTERNET TECHNOLOGY MANAGER 02/28/2023 Last Documented On 3 9:51AM ; [facility] [J20.9 - Acute bronchitis, unspecified] acute bronchitis Medical Established Patient with Karla Clark INTERNET TECHNOLOGY MANAGER 11/19/2022 Last Documented On 3 10:15AM ; [facility] [M79.621 - Pain in right upp er arm] pain in upper arm Medical Established Patient with Karla Clark INTERNET TECHNOLOGY MANAGER 11/19/2022 Last Documented On 3 10:15AM ; [facility] [Z68.23 - Body mass index [B DE] 23.0-23.9, adult] assessment of body mass index Medical Established Patient with Karla Clark INTERNET TECHNOLOGY MANAGER 11/19/2022 Last Documented On 3 10:15AM ; [facility] [M79.601 - Pain in right arm ] pain in right arm Medical Established Patient with Karla Clark INTERNET TECHNOLOGY MANAGER 09/18/2022 Last Documented On 3 2:33PM ; [facility] [Z68.24 - Body mass index [B DE] 24.0-24.9, adult] assessment of body mass index Medical Established Patient with Karla Clark INTERNET TECHNOLOGY MANAGER 09/18/2022 Last Documented On 3 2:33PM ; [facility] Assessment of tobacco use Medical Establ ished Patient with Karla Clark INTERNET TECHNOLOGY MANAGER 09/18/2022 Last Documented On 3 2:33PM ; [facility] [M25.569 - Pain in unspecifi ed knee] arthralgia of knee / patella / tibia / fibula Medical Established Patient with Karla Clark INTERNET TECHNOLOGY MANAGER 08/27/2022 Last Documented On 3 9:20AM ; [facility] [Z68.24 - Body mass index [B DE] 24.0-24.9, adult] assessment of body mass index Medical Established Patient with Karla Clark INTERNET TECHNOLOGY MANAGER 08/27/2022 Last Documented On 3 9:20AM ; [facility] Intervention and counseling on cessation of tobacco use, 3-10 minutes Discussed medication and nicotine replacement for tobacco cessation Medical Established Patient with Karla Clark INTERNET TECHNOLOGY MANAGER 08/27/2022 Last Documented On 3 9:20AM ; [facility] Nicotine dependence Medical Established Patient with Karla Clark INTERNET TECHNOLOGY MANAGER 08/27/2022 Last Documented On 3 9:20AM ; [facility] Visit for routine adult H&P without abnormal findings Medical Established Patient with Karla Clark INTERNET TECHNOLOGY MANAGER 08/27/2022 Last Documented On 3 9:20AM ; [facility] [H92.02 - Otalgia, left ear] earache Med ical Established Patient with Karla Clark INTERNET TECHNOLOGY MANAGER 06/18/2022 Last Documented On 3 12:11PM ; [facility] [M79.604 - Pain in right leg ] pain in right leg Medical Established Patient with Karla lCark INTERNET TECHNOLOGY MANAGER 06/18/2022 Last Documented On 3 12:11PM ; [facility] [Z68.24 - Body mass index [B DE] 24.0-24.9, adult] assessment of body mass index Medical Established Patient with Karla Clark INTERNET TECHNOLOGY MANAGER 06/18/2022 Last Documented On 3 12:11PM ; [facility] Assessment of tobacco use Medical Establ ished Patient with Karlajulius Floresen INTERNET TECHNOLOGY MANAGER 06/18/2022 Last Documented On 3 12:11PM ; [facility] Diabetes Risk Test Score was four score 06/18/2022 Medical Established Patient with Karla Clark INTERNET TECHNOLOGY MANAGER 06/18/2022 Last Documented On 3 12:11PM ; [facility] Schizoaffective disorder Established Patient with Yin Feliz LPCC-S 03/20/2022 Last Documented On 2 12:13AM ; [facility] No cough Medical Established Patient with Karla Floresen INTERNET TECHNOLOGY MANAGER 12/20/2021 Last Documented On 2 3:12PM ; [facility] Visit for: screening for hum an immunodeficiency virus Medical Established Patient with Karla Clark INTERNET TECHNOLOGY MANAGER 12/20/2021 Last Documented On 2 3:12PM ; [facility] Z68.24 - Body mass index [BM I] 24.0-24.9, adult Medical Established Patient with Karla Floresen INTERNET TECHNOLOGY MANAGER 12/20/2021 Last Documented On 2 3:12PM ; [facility] Bipolar disorder NOS Established Patient with Yin Feliz LPCC-S 11/03/2021 Last Documented On 2 7:00PM ; [facility] Bipolar schizoaffective disorder BH Esta blished Patient with Yin Feliz LPCC-S 11/03/2021 Last Documented On 2 7:00PM ; [facility] PLAN Medical Established Patient with Don Pino MD 11/03/2021 Last Documented On 2 10:40AM ; [facility] Abnormal electrocardiogram Medical Estab lished Patient with Don Pino MD 11/03/2021 Last Documented On 2 10:40AM ; [facility] Z68.24 - Body mass index [BM I] 24.0-24.9, adult Medical Established Patient with Don Pino MD 11/03/2021 Last Documented On 2 10:40AM ; [facility] Cough Medical Established Patient with Karla Clark INTERNET TECHNOLOGY MANAGER 07/28/2021 Last Documented On 2 2:01PM ; [facility] Intervention and counseling on cessation of tobacco use, 3-10 minutes Discussed medication and nicotine replacement for tobacco cessation Medical Established Patient with Karla Amber INTERNET TECHNOLOGY MANAGER 07/28/2021 Last Documented On 2 2:01PM ; [facility] Nicotine dependence Medical Established Patient with Karla Amber INTERNET TECHNOLOGY MANAGER 07/28/2021 Last Documented On 2 2:01PM ; [facility] Z68.24 - Body mass index [BM I] 24.0-24.9, adult Medical Established Patient with Karla Amber INTERNET TECHNOLOGY MANAGER 07/28/2021 Last Documented On 2 2:01PM ; [facility] Assess Colon screening Medical Established Patie nt with Karlajulius Clark INTERNET TECHNOLOGY MANAGER 05/08/2021 Last Documented On 1 10:59AM ; [facility] Diabetes Risk Test Score was four score 05/08/2021 Medical Established Patient with Karla Amber INTERNET TECHNOLOGY MANAGER 05/08/2021 Last Documented On 1 10:59AM ; [facility] Routine adult history and ph ysical (18-64 yrs) without abnormal findings Medical Established Patient with Karla Amber INTERNET TECHNOLOGY MANAGER 05/08/2021 Last Documented On 1 10:59AM ; [facility] Z68.24 - Body mass index [BM I] 24.0-24.9, adult Medical Established Patient with Karla Amber INTERNET TECHNOLOGY MANAGER 05/08/2021 Last Documented On 1 10:59AM ; [facility] Z68.24 - Body mass index [BM I] 24.0-24.9, adult Medical Established Patient with Karla Amber INTERNET TECHNOLOGY MANAGER 06/17/2020 Last Documented On 1 10:30AM ; [facility] Overweight Medical Established Patient with Karla Amber INTERNET TECHNOLOGY MANAGER 06/06/2020 Last Documented On 1 2:06PM ; [facility] Z68.25 - Body mass index [BM I] 25.0-25.9, adult Medical Established Patient with Karla Amber INTERNET TECHNOLOGY MANAGER 06/06/2020 Last Documented On 1 2:06PM ; [facility] Antiasthmatics [facility] Asthma Clinic-New with Karla Amber INTERNET TECHNOLOGY MANAGER 05/06/2020 Last Documented On 0 7:27PM ; [facility] Assessment of tobacco use [facility] Asthma Clinic-New with Karla Amber INTERNET TECHNOLOGY MANAGER 05/06/2020 Last Documented On 0 7:27PM ; [facility] Body mass index [facility] Asthma Clinic-New with Karla Amber INTERNET TECHNOLOGY MANAGER 05/06/2020 Last Documented On 0 7:27PM ; [facility] Chronic obstructive pulmonary disease S [facility]-New with Karla Amber INTERNET TECHNOLOGY MANAGER 05/06/2020 Last Documented On 0 7:27PM ; [facility] Overweight [facility] Asthma Clinic-New with Karla Amber INTERNET TECHNOLOGY MANAGER 05/06/2020 Last Documented On 0 7:27PM ; [facility] Z11.4 - Encounter for screen ing for human immunodeficiency virus [HIV] [facility] Asthma Clinic-New with Karla Amber INTERNET TECHNOLOGY MANAGER 05/06/2020 Last Documented On 0 7:27PM ; [facility] Diabetes Risk Test Score was three score 03/31/2020 Medical Established Patient with Karla Amber INTERNET TECHNOLOGY MANAGER 03/31/2020 Last Documented On 0 3:22PM ; [facility] Overweight Medical Established Patient with Karla Amber INTERNET TECHNOLOGY MANAGER 03/31/2020 Last Documented On 0 3:22PM ; [facility] Z68.25 - Body mass index [BM I] 25.0-25.9, adult Medical Established Patient with Karla Amber INTERNET TECHNOLOGY MANAGER 03/31/2020 Last Documented On 0 3:22PM ; [facility] Encounter for Immunization Nurse Visit with Gary Clark INTERNET TECHNOLOGY MANAGER 03/14/2020 Last Documented On 0 5:11PM ; [facility] Body mass index Medical Established Patient with Karla Clark INTERNET TECHNOLOGY MANAGER 02/26/2020 Last Documented On 0 1:18PM ; [facility] Overweight Medical Established Patient with Karlajulius Floresen INTERNET TECHNOLOGY MANAGER 02/26/2020 Last Documented On 0 1:18PM ; [facility] Overweight Medical Established Patient with Karla Floresen INTERNET TECHNOLOGY MANAGER 07/23/2019 Last Documented On 0 2:33PM ; [facility] Z68.27 - Body mass index (BM I) 27.0-27.9, adult Medical Established Patient with Karla Clark INTERNET TECHNOLOGY MANAGER 07/23/2019 Last Documented On 0 2:33PM ; [facility] Occasional asthma CPS- Asthma Clinic- F/U with A french Clark INTERNET TECHNOLOGY MANAGER 06/05/2019 Last Documented On 0 7:04PM ; [facility] Overweight CPS- [facility] Clinic- F/U with Alta Clark INTERNET TECHNOLOGY MANAGER 06/05/2019 Last Documented On 0 7:04PM ; [facility] [facility] Z68.27 - Body mass index (BM I) 27.0-27.9 adult CPS- [facility]- F/U with Karla Clark INTERNET TECHNOLOGY MANAGER 06/05/2019 Last Documented On 0 7:04PM ; [facility] Occasional asthma CPS Med Review with Karla dinh INTERNET TECHNOLOGY MANAGER 04/23/2019 Last Documented On 9 4:01PM ; [facility] Overweight CPS Med Review with Karla Floresen INTERNET TECHNOLOGY MANAGER 04/23/2019 Last Documented On 9 4:01PM ; [facility] Z68.27 - Body mass index (BM I) 27.0-27.9 adult CPS Med Review with Karla Floresen INTERNET TECHNOLOGY MANAGER 04/23/2019 Last Documented On 9 4:01PM ; [facility] Acute pharyngitis Medical Established Patient wi maxwell Kelley INTERNET TECHNOLOGY MANAGER 04/15/2019 Last Documented On 9 12:31PM ; [facility] Asthmatic bronchitis with ac [place] exacerbation Medical Established Patient with Brandy Serranoer INTERNET TECHNOLOGY MANAGER 04/15/2019 Last Documented On 9 12:31PM ; [facility] Fagerstrom Score was two Medical Established Pat ient with Brandy Warren INTERNET TECHNOLOGY MANAGER 04/15/2019 Last Documented On 9 12:31PM ; [facility] PHQ-9: total score was three 04/15/2019 Medical Established Patient with Brandy Warren INTERNET TECHNOLOGY MANAGER 04/15/2019 Last Documented On 9 12:31PM ; [facility] Body mass index Medical Established Patient with Karlajulius Floresen INTERNET TECHNOLOGY MANAGER 03/05/2019 Last Documented On 9 10:27AM ; [facility] Diabetes Risk Test Score was three score Medical Established Patient with Karla Amber INTERNET TECHNOLOGY MANAGER 03/05/2019 Last Documented On 9 10:27AM ; [facility] Overweight Medical Established Patient with Karla Amber INTERNET TECHNOLOGY MANAGER 03/05/2019 Last Documented On 9 10:27AM ; [facility] Z68.28 - Body mass index (BM I) 28.0-28.9, adult Medical Established Patient with Karla Floresen INTERNET TECHNOLOGY MANAGER 12/22/2018 Last Documented On 9 10:32AM ; [facility] Assess routine adult history and physical (18 - 64 yrs) Medical Established Patient with Karla Amber INTERNET TECHNOLOGY MANAGER 11/06/2018 Last Documented On 9 2:26PM ; [facility] Overweight Medical Established Patient with Karla Amber INTERNET TECHNOLOGY MANAGER 11/06/2018 Last Documented On 9 2:26PM ; [facility] Z68.28 - Body mass index (BM I) 28.0-28.9, adult Medical Established Patient with Karla Amber INTERNET TECHNOLOGY MANAGER 11/06/2018 Last Documented On 9 2:26PM ; [facility] Assess dysphagia Medical Established Patient wit h Karlajulius Floresen INTERNET TECHNOLOGY MANAGER 09/11/2018 Last Documented On 9 10:53AM ; [facility] Assess routine adult history and physical (18 - 64 yrs) Medical Established Patient with Karla Amber INTERNET TECHNOLOGY MANAGER 09/11/2018 Last Documented On 9 10:53AM ; [facility] Assess primary insomnia with sleep apnea Medical Established Patient with Karla Clark INTERNET TECHNOLOGY MANAGER 09/04/2018 Last Documented On 9 2:23PM ; [facility] Assess routine adult history and physical (18 - 64 yrs) Medical Established Patient with Karla Clark INTERNET TECHNOLOGY MANAGER 09/04/2018 Last Documented On 9 2:23PM ; [facility] Overweight Medical Established Patient with Karla Clark INTERNET TECHNOLOGY MANAGER 09/04/2018 Last Documented On 9 2:23PM ; [facility] Z68.29 - Body mass index (BM I) 29.0-29.9, adult Medical Established Patient with Karla Clark INTERNET TECHNOLOGY MANAGER 09/04/2018 Last Documented On 9 2:23PM ; [facility] Assess vaginal candidiasis Medical Estab lished Patient with Karla Clark INTERNET TECHNOLOGY MANAGER 07/31/2018 Last Documented On 9 2:12PM ; [facility] Work Phone: 1(857) 472-503508-26-2024 Progress note* Progress note Date Encounter Last Documented by 01/27/2024 Medical Established Patient Last documented on 01/28/2024; 9:12 AM, Vida Culp CNP; [facility] Active Problems & Conditions - J45.909 - Asthma Occasional - Asthma - F31.9 - Bipolar Disorder Nos - Bipolar disorder, unspecified - J44.9 - Chronic Obstructive Pulmonary Disease - F32.9 - Major depressive disorder, single episode, unspecified - Depression - Schizoaffective Disorder Chief Complaint The Chief Complaint is: Pt here for ER f/u. Nurse from [facility] took stiches out on Saturday. Reason [...] her feet. Patient reports she see's Dr. Munoz for Psychiatry. Patient reports she has noticed some tremoring and feels like her gait is shuffeling. Of note she is leanng to nino the left while siting up in the chair. She did speak with Dr. Munoz about this, it has not been determined [...] 1 actuation by mouth twice daily (replaces [employer] r/t insurance), 30 days, 11 refills - [...] once daily, 0 days, 0 refills - Attalla Carbonate 300 MG Oral Tablet one tablet [...] Bipolar disorder NOS Depression Heart Attack 03/2021 [facility]. Surgical: - General surgery right shoulder ORIF [...] 01/27/2024 08:41 am BP-Sitting R134/78 mmHg Pulse Rate-Zkjjpmy71 bpm Qdedxm76 in Bplrzh203 lbs Body Mass Index25.6 kg/m2 Body Surface Area1.7 m2 Oxygen Rddnvkqmqr98 % Vital Signs: - Systolic blood pressure [...] she may have Parkinson's according to Dr. Munoz. Will send referral to Neurology for further [...] pt : Not at all. [facility]07-23-2024 Progress note Author Reynaldo Kraft [facility] December 24, 2023 1:28pm Note Date/Time December 24, 2023 1:17 pm [facility] [address] [place] [address] Psychiatry Progress Note Signed Patient: Gail Almeida MR#: [id number] : 1955 Acct:[id number] Age/Sex: 68 / F Adm Date: 4 Loc: Room: [address] [place] [address] Type : ADM IN Attending Dr: Joe [...] mg QHS and 12.5 mg TID Continue Attalla 300 mg twice a day, clonidine 0.1 mg daily Continue to monitor mental status Encourage group participation and medication compliance Risk benefits alternatives explained Documented By: Reynaldo Kraft MD 12/24/23 1317 Signed By: <Electronically signed by Reynaldo Kraft MD> 12/24/23 7155 [facility] Work Phone: 1(963) 740-861107-22-2024 Progress note Author Reynaldo Kraft [facility] December 23, 2023 11:11am Note Date/Time December 23, 2023 11:1 1am [facility] [address] [place] [address] Psychiatry Progress Note Signed Patient: Gail Almeida MR#: [id number] : 1955 Acct:[id number] Age/Sex: 68 / F Adm Date: 4 Loc: Room: [address] [place] [address] Type : ADM IN Attending Dr: Joe [...] is okay with going to a different jail. Mental status exam: Mental Status: mental status [...] mg QHS and 12.5 mg TID Continue Attalla 300 mg twice a day, clonidine 0.1 mg daily Continue to monitor mental status Encourage group participation and medication compliance Risk benefits alternatives explained Documented By: Reynaldo Kraft MD 12/23/23 1109 Signed By: <Electronically signed by Reynaldo Kraft MD> 12/23/23 1111 [facility] Work Phone: 1(706) 572-792107-21-2024 Progress note Author Joe rodriguez [facility] December 22, 2023 6:30am Note Date/Time December 22, 2023 6:29 am [facility] [address] [place] [address] Psychiatry Progress Note Signed Patient: Gail Almeida MR#: [id number] : 1955 Acct:[id number] Age/Sex: 68 / F Adm Date: 4 Loc: Room: [address] [place] [address] Type : ADM IN Attending Dr: Joe [...] Case management is working on placement options. Attalla level is 1.0. Case management to safety plan with patient's daughter. Continue Topamax 25 QHS, Zyprexa 5 mg daily and 15 mg QHS Continue Seroquel 400 mg QHS and 12.5 mg TID Continue Attalla, clonidine 0.1 mg daily Continue folic acid 1 mg daily and amantadine 100 mg daily Monitor for suicidal behaviors for safety of self (15-minute face check) Recommend attending groups and psychoeducation for building coping skills Typical short- and long-term side effects of the proposed medication regimen, including contraindications and clinically significant interactions, were discussed with the patient. Medication regimen includes Topamax, Zyprexa, Seroquel, Attalla, clonidine and folic acid. Side effects include [...] By: <Electronically signed by Joe Davis MD> 12/22/23629 [facility] Work Phone: 1(234) 480-847607-20-2024 Progress note Author Joe rodriguez [facility] December 21, 2023 6:35am Note Date/Time December 21, 2023 6:35 am [facility] [address] [place] [address] Psychiatry Progress Note Signed Patient: Gail Almeida MR#: [id number] : 1955 Acct:[id number] Age/Sex: 68 / F Adm Date: 4 Loc: Room: [address] [place] [address] Type : ADM IN Attending Dr: Joe [...] Case management is working on placement options. Attalla level is 1.0. Case management to safety plan with patient's daughter. Continue Topamax 25 QHS, Zyprexa 5 mg daily and 15 mg QHS Continue Seroquel 400 mg QHS and 12.5 mg TID Continue Attalla, clonidine 0.1 mg daily Continue folic acid 1 mg daily and amantadine 100 mg daily Monitor for suicidal behaviors for safety of self (15-minute face check) Recommend attending groups and psychoeducation for building coping skills Typical short- and long-term side effects of the proposed medication regimen, including contraindications and clinically significant interactions, were discussed with the patient. Medication regimen includes Topamax, Zyprexa, Seroquel, Attalla, clonidine and folic acid. Side effects include [...] signed by Joe Davis MD> 12/21/23 0635 [facility] Work Phone: 1(306) 150-124107-19-2024 Progress note Author Joe rodriguez [facility] December 20, 2023 6:36am Note Date/Time December 20, 2023 6:36 am [facility] [address] [place] [address] Psychiatry Progress Note Signed Patient: Gail Almeida MR#: [id number] : 1955 Acct:[id number] Age/Sex: 68 / F Adm Date: 4 Loc: Room: [address] [place] [address] Type : ADM IN Attending Dr: Joe Davis MD Copies to: ~ Date of Service: 12/20/2023 Subjective Subjective Narrative: Ms. Almeida said she had a good day and staff reported that she is at her baseline. She denied any AVH or SI/HI. She is compliant with treatment. Per top case assembler, spoke with Alma Louis from [facility] in regards to placement for pt at discharge, states [facility] is not able to care for pt and has spoke with [facility] about placement. This designer/writer to reach out toMelody at facility to [...] Case management is working on placement options. Attalla level is 1.0. Case management to safety plan with patient's daughter. Continue Topamax 25 QHS, Zyprexa 5 mg daily and 15 mg QHS Continue Seroquel 400 mg QHS and 12.5 mg TID Continue Attalla, clonidine 0.1 mg daily Continue folic acid 1 mg daily and amantadine 100 mg daily Monitor for suicidal behaviors for safety of self (15-minute face check) Recommend attending groups and psychoeducation for building coping skills Typical short- and long-term side effects of the proposed medication regimen, including contraindications and clinically significant interactions, were discussed with the patient. Medication regimen includes Topamax, Zyprexa, Seroquel, Attalla, clonidine and folic acid. Side effects include [...] signed by Joe Davis MD> 12/20/23 0636 [facility] Work Phone: 1(184) 446-217007-18-2024 Progress note Author Joe rodriguez [facility] December 19, 2023 6:46am Note Date/Time December 19, 2023 6:45 am [facility] [address] [place] [address] Psychiatry Progress Note Signed Patient: Gail Almeida MR#: [id number] : 1955 Acct:[id number] Age/Sex: 68 / F Adm Date: 4 Loc: Room: [address] [place] [address] Type : ADM IN Attending Dr: Joe [...] showing signs of improvement and denied SI/HI. Attalla level is 1.0. Case management to safety plan with patient's daughter. Continue Topamax 25 QHS, Zyprexa 5 mg daily and 15 mg QHS Continue Seroquel 400 mg QHS and 12.5 mg TID Continue Attalla, clonidine 0.1 mg daily Continue folic acid 1 mg daily and amantadine 100 mg daily Monitor for suicidal behaviors for safety of self (15-minute face check) Recommend attending groups and psychoeducation for building coping skills Typical short- and long-term side effects of the proposed medication regimen, including contraindications and clinically significant interactions, were discussed with the patient. Medication regimen includes Topamax, Zyprexa, Seroquel, Attalla, clonidine and folic acid. Side effects include [...] signed by Joe Davis MD> 12/19/23 0646 [facility] Work Phone: 1(571) 763-646707-17-2024 Progress note Author Joe rodriguez [facility] December 18, 2023 6:40am Note Date/Time December 18, 2023 6:38 am [facility] [address] [place] [address] Psychiatry Progress Note Signed Patient: Gail Almeida MR#: [id number] : 1955 Acct:[id number] Age/Sex: 68 / F Adm Date: 4 Loc: Room: [address] [place] [address] Type : ADM IN Attending Dr: Joe [...] showing signs of improvement and denied SI/HI. Attalla level is pending. Continue Topamax 25 QHS, Zyprexa 5 mg daily and 15 mg QHS Continue Seroquel 400 mg QHS and 12.5 mg TID Continue Attalla, clonidine 0.1 mg daily Continue folic acid 1 mg daily and amantadine 100 mg daily Monitor for suicidal behaviors for safety of self (15-minute face check) Recommend attending groups and psychoeducation for building coping skills Typical short- and long-term side effects of the proposed medication regimen, including contraindications and clinically significant interactions, were discussed with the patient. Medication regimen includes Topamax, Zyprexa, Seroquel, Attalla, clonidine and folic acid. Side effects include [...] signed by Joe Davis MD> 12/18/23 0640 [facility] Work Phone: 1([phone]) 851-259007-16-2024 History and physical note Author Joe rodriguez [facility] December 17, 2023 11:50am Note Date/Time December 17, 2023 10:1 7am [facility] [address] [place] [address] Psychiatry H&P Signed Patient: Gail Almeida MR#: [id number] : 1955 Acct:[id number] Age/Sex: 68 / F Adm Date: 4 Loc: Room: [address] [place] [address] Type: ADM IN Attending Dr: Joe Davis [...] assisted living facility called. She lives at [facility]. The pt has been having visual hallucinations [...] HI and AVH Insight: Poor Judgment: Poor [facility] Medical History (Updated 12/16/23 @ 14:32 by [...] oral powder 17 g PO DAILY PRN Ugaxlbovgryq99/10/23 [History Confirmed 12/16/23] albuterol sulfate 90 mcg/actuation [...] 12/16/23] dextromethorphan-guaifenesin 30 mg-600 mg tablet extended kliwdlp80 hr (Mucus DM) 1 tab PO Q12HR [...] Appearance Clear Urine pH 7.0 Ur Specific [place] 1.005 Urine Protein Negative Urine Glucose (UA) Normal Urine Ketones Negative Urine Occult Blood Negative Urine Nitrite Negative Ur Leukocyte Esterase Negative Assessment/Plan (1) Chronic schizophrenia: (2) Acute psychosis: Plan Continue Topamax 25 QHS, Zyprexa 5 mg daily and 15 mg QHS Continue Seroquel 400 mg QHS and 12.5 mg TID Continue Attalla, clonidine 0.1 mg daily Continue folic acid 1 mg daily and amantadine 100 mg daily Monitor for suicidal behaviors for safety of self (15-minute face check) Recommend attending groups and psychoeducation for building coping skills Typical short- and long-term side effects of the proposed medication regimen, including contraindications and clinically significant interactions, were discussed with the patient. Medication regimen includes Topamax, Zyprexa, Seroquel, Attalla, clonidine and folic acid. Side effects include [...] signed by Joe Davis MD> 12/17/23 1150 [facility] Work Phone: 1(533) 423-964506-14-2024 Progress note* Progress note Date Encounter Last Documented by 11/15/2023 Chart Update Last documented on 11/15/2023; 12:07 PM, Karla Clark INTERNET TECHNOLOGY MANAGER; [facility] [...] once daily, 0 days, 0 refills - Attalla Carbonate 300 MG Oral Tablet one tablet [...] Bipolar disorder NOS Depression Heart Attack 03/2021 [facility]. Surgical: - General surgery right shoulder ORIF [...] Planning Care Team - Karla Clark CNP [facility]06-14-2024 Instructions Includes: Instructions for all patient encounters Instructions to patient Intervention and counseling on cessation of tobacco use, 3-10 minutes Discussed medication and nicotine replacement for tobacco cessation Last Documented On 3 8:54AM ; [facility] Intervention and counseling on cessation of tobacco use, 3-10 minutes Discussed medication and nicotine replacement for tobacco cessation Last Documented On 2 1:56PM ; [facility] Intervention and counseling on cessation of tobacco use, 3-10 minutes Last Documented On 0 2:07PM ; [facility] Return to the clinic if cond ition worsens or new symptoms arise Last Documented On 9 1:59PM ; [facility] Intervention and counseling on cessation of tobacco use, 3-10 minutes Last Documented On 9 10:39AM ; [facility] Education and Decision Aids were provided during visit for: Discussed nutritional needs teach healthy choices including fruits and vegetables Last Documented On 4 1:26PM ; [facility] Patient education about a pr oper diet Last Documented On 4 1:26PM ; [facility] Discussed concerns about exe rcise : promote physical activity Last Documented On 4 1:26PM ; [facility] Discussed nutritional needs teach healthy choices including fruits and vegetables Last Documented On 3 10:55AM ; [facility] Patient education about a pr oper diet Last Documented On 3 10:55AM ; [facility] Discussed concerns about exe rcise : promote physical activity Last Documented On 3 10:55AM ; [facility] Discussed nutritional needs teach healthy choices including fruits and vegetables Last Documented On 3 9:37AM ; [facility] Patient education about a pr oper diet Last Documented On 3 9:37AM ; [facility] Discussed concerns about exe rcise : promote physical activity Last Documented On 3 9:37AM ; [facility] Not requesting contraception Last Documented On 3 9:37AM ; [facility] Discussed nutritional needs teach healthy choices including fruits and vegetables Last Documented On 3 9:20AM ; [facility] Patient [...] [facility] Patient [...] [facility] Patient [...] [facility] Patient education about a pr oper diet Last Documented On 3 11:28AM ; [facility] Discussed concerns about exe rcise : promote physical activity Last Documented On 3 11:28AM ; [facility] Discussed nutritional needs teach healthy choices including fruits and vegetables Last Documented On 2 2:01PM ; [facility] Patient education about a pr oper diet Last Documented On 2 2:01PM ; [facility] Discussed concerns about exe rcise : promote physical activity Last Documented On 2 2:01PM ; [facility] Discussed nutritional needs teach healthy choices including fruits and vegetables Last Documented On 2 2:11PM ; [facility] Patient education about a pr oper diet Last Documented On 2 2:11PM ; [facility] Discussed concerns about exe rcise : promote physical activity Last Documented On 2 2:11PM ; [facility] Discussed current self-care methods/coping skills. ~Validated and normalized pt's feelings while assisting patient process recent events. ~Discussed ongoing counseling. ~Discussed lifestyle changes to address chronic illness. ~Supported patient's personal health goals ~wordfinds. walk, read, eat, enjoy my best friesnd Last Documented On 2 5:54PM ; [facility] Discussed nutritional needs teach healthy choices including fruits and vegetables Last Documented On 2 10:04AM ; [facility] Patient education about a pr oper diet Last Documented On 2 10:04AM ; [facility] Discussed concerns about exe rcise : promote physical activity Last Documented On 2 10:04AM ; [facility] Discussed nutritional needs teach healthy choices including fruits and vegetables Last Documented On 2 1:25PM ; [facility] Patient education about a pr oper diet Last Documented On 2 1:25PM ; [facility] Discussed concerns about exe rcise : promote physical activity Last Documented On 2 1:25PM ; [facility] Discussed nutritional needs teach healthy choices including fruits and vegetables Last Documented On 1 10:08AM ; [facility] Patient education about a pr oper diet Last Documented On 1 10:08AM ; [facility] Discussed concerns about exe rcise : promote physical activity Last Documented On 1 10:08AM ; [facility] Discussed nutritional needs teach healthy choices including fruits and vegetables Last Documented On 1 1:12PM ; [facility] Patient education about a pr oper diet Last Documented On 1 1:12PM ; [facility] Patient education about a pr oper diet Last Documented On 1 1:30PM ; [facility] Patient education about meal planning Last Documented On 1 1:30PM ; [facility] Education about changing eat ing habits Last Documented On 1 1:30PM ; [facility] Patient education about high fiber diet Last Documented On 1 1:30PM ; [facility] Patient education about low fat diet Last Documented On 1 1:30PM ; [facility] Patient education about low cholesterol diet Last Documented On 1 1:30PM ; [facility] Patient education about low carbohydrate diet Last Documented On 1 1:30PM ; [facility] Patient education about high protein diet Last Documented On 1 1:30PM ; [facility] Discussed concerns about exe rcise : promote physical activity Last Documented On 1 1:12PM ; [facility] Education/counseling conduct ed by pharmacist Last Documented On 0 1:39PM ; [facility] Vaccination counseling Last Documented On 0 1:39PM ; [facility] Discussed concerns about exe rcise : promote physical activity Last Documented On 0 2:16PM ; [facility] Patient goals decrease short ness of breath episodes Last Documented On 0 2:11PM ; [facility] Patient states that she uses her [...] recently Last Documented On 0 2:24PM ; [facility] Patient education about a pr oper diet Last Documented On 0 2:54PM ; [facility] Patient education about meal planning Last Documented On 0 2:54PM ; [facility] Education about changing eat ing habits Last Documented On 0 2:54PM ; [facility] Patient education about high fiber diet Last Documented On 0 2:54PM ; [facility] [facility] Patient education about low fat diet Last Documented On 0 2:54PM ; [facility] Patient education about low cholesterol diet Last Documented On 0 2:54PM ; [facility] Patient education about low carbohydrate diet Last Documented On 0 2:54PM ; [facility] Patient education about high protein diet Last Documented On 0 2:54PM ; [facility] Discussed nutritional needs teach healthy choices including fruits and vegetables Last Documented On 0 11:11AM ; [facility] Patient education about a pr oper diet Last Documented On 0 11:11AM ; [facility] Patient education about a pr oper diet Last Documented On 0 11:28AM ; [facility] Patient education about meal planning Last Documented On 0 11:28AM ; [facility] Education about changing eat ing habits Last Documented On 0 11:28AM ; [facility] Patient education about high fiber diet Last Documented On 0 11:28AM ; [facility] Patient education about low fat diet Last Documented On 0 11:28AM ; [facility] Patient education about low cholesterol diet Last Documented On 0 11:28AM ; [facility] Patient education about low carbohydrate diet Last Documented On 0 11:28AM ; [facility] Patient education about high protein diet Last Documented On 0 11:28AM ; [facility] Discussed concerns about exe rcise : promote physical activity Last Documented On 0 11:11AM ; [facility] Education/counseling conduct ed by pharmacist Last Documented On 0 1:41PM ; [facility] Patient states that she lonnie gonzalez [...] own Last Documented On 0 2:08PM ; [facility] Education/counseling conduct ed by pharmacist Last Documented On 9 1:12PM ; [facility] Patient states that she lonnie gonzalez has issues with her inhaler with the spacer. Patient did not bring in inhaler or spacer. Patient was told to bring in inhalers at next scheduled visit for pharmacist to assess inhalation technique. Patient is agreeable Last Documented On 9 1:13PM ; [facility] Patient goals Start using ch deon to help with inhaling dulera Last Documented On 9 2:40PM ; [facility] Patient states that she is g [...] vaccines Last Documented On 9 2:51PM ; [facility] Discussed nutritional needs teach healthy choices including fruits and vegetables Last Documented On 9 9:29AM ; [facility] Patient education about a pr oper diet Last Documented On 9 9:29AM ; [facility] Discussed concerns about exe rcise : promote physical activity Last Documented On 9 9:29AM ; [facility] Work Phone: [phone]) 724-875405-03-2024 Evaluation note Includes: Assessments for all patient encounters Findings Encounter Date [F1210 - Nicotine dependen ce, cigarettes, uncomplicated] continuous dependence on cigarette smoking Medical Established Patient with Karla Clark [facility] 10/04/2023 Last Documented On 4 6:30PM ; [facility] [Z12.11 - Encounter for scre ening for malignant neoplasm of colon] Colon screening Medical Established Patient with Karla Clark [employer] TECHNOLOGY MANAGER 10/04/2023 Last Documented On 4 6:30PM ; [facility] [Z68.25 - Body mass index [B DE] 25.0-25.9, adult] assessment of body mass index Medical Established Patient with Kalra Clark [facility] 10/04/2023 Last Documented On 4 6:30PM ; [facility] Diabetes Risk Test Score was five score 10/04/2023 Medical Established Patient with Karla Clark [facility] 10/04/2023 Last Documented On 4 6:30PM ; [facility] Encounter for Immunization Medical Estab lished Patient with Karla Clark [facility] 10/04/2023 Last Documented On 4 6:30PM ; [facility] [D48.5 - Neoplasm of uncerta in behavior of skin] skin neoplasm of uncertain behavior Medical Established Patient with Karla Clark INTERNET TECHNOLOGY MANAGER 05/22/2023 Last Documented On 3 1:30PM ; [facility] [Z68.24 - Body mass index [B DE] 24.0-24.9, adult] assessment of body mass index Medical Established Patient with Karla Clark INTERNET TECHNOLOGY MANAGER 05/22/2023 Last Documented On 3 1:30PM ; [facility] Assessment of tobacco use Medical Establ ished Patient with Karla lCark INTERNET TECHNOLOGY MANAGER 05/22/2023 Last Documented On 3 1:30PM ; [facility] [R30.0 - Dysuria] Dysuria Chart Update with Gary Clark INTERNET TECHNOLOGY MANAGER 03/21/2023 Last Documented On 3 11:27AM ; [facility] [Z12.39 - Encounter for othe r screening for malignant neoplasm of breast] visit for: screening for malignant breast neoplasm Medical Established Patient with Aaron Whitaker INTERNET TECHNOLOGY MANAGER 02/28/2023 Last Documented On 3 9:51AM ; [facility] [Z68.24 - Body mass index [B DE] 24.0-24.9, adult] assessment of body mass index Medical Established Patient with Aaron Whitaker INTERNET TECHNOLOGY MANAGER 02/28/2023 Last Documented On 3 9:51AM ; [facility] Assessment of tobacco use Medical Establ ished Patient with Aaron Whitaker INTERNET TECHNOLOGY MANAGER 02/28/2023 Last Documented On 3 9:51AM ; [facility] Chronic obstructive pulmonary disease Me dical Established Patient with Aaron Whitaker INTERNET TECHNOLOGY MANAGER 02/28/2023 Last Documented On 3 9:51AM ; [facility] [J20.9 - Acute bronchitis, unspecified] acute bronchitis Medical Established Patient with Karla Clark INTERNET TECHNOLOGY MANAGER 11/19/2022 Last Documented On 3 10:15AM ; [facility] [M79.621 - Pain in right upp er arm] pain in upper arm Medical Established Patient with Karla Clark INTERNET TECHNOLOGY MANAGER 11/19/2022 Last Documented On 3 10:15AM ; [facility] [Z68.23 - Body mass index [B DE] 23.0-23.9, adult] assessment of body mass index Medical Established Patient with Karla Clark INTERNET TECHNOLOGY MANAGER 11/19/2022 Last Documented On 3 10:15AM ; [facility] [M79.601 - Pain in right arm ] pain in right arm Medical Established Patient with Karla Clark INTERNET TECHNOLOGY MANAGER 09/18/2022 Last Documented On 3 2:33PM ; [facility] [Z68.24 - Body mass index [B DE] 24.0-24.9, adult] assessment of body mass index Medical Established Patient with Karla Clark INTERNET TECHNOLOGY MANAGER 09/18/2022 Last Documented On 3 2:33PM ; [facility] Assessment of tobacco use Medical Establ ished Patient with Karla Clark INTERNET TECHNOLOGY MANAGER 09/18/2022 Last Documented On 3 2:33PM ; [facility] [M25.569 - Pain in unspecifi ed knee] arthralgia of knee / patella / tibia / fibula Medical Established Patient with Karla Clark INTERNET TECHNOLOGY MANAGER 08/27/2022 Last Documented On 3 9:20AM ; [facility] [Z68.24 - Body mass index [B DE] 24.0-24.9, adult] assessment of body mass index Medical Established Patient with Karla Clark INTERNET TECHNOLOGY MANAGER 08/27/2022 Last Documented On 3 9:20AM ; [facility] Intervention and counseling on cessation of tobacco use, 3-10 minutes Discussed medication and nicotine replacement for tobacco cessation Medical Established Patient with Karla Clark CNP 08/27/2022 Last Documented On 3 9:20AM ; [facility] Nicotine dependence Medical Established Patient with Karla Clark INTERNET TECHNOLOGY MANAGER 08/27/2022 Last Documented On 3 9:20AM ; [facility] Visit for routine adult H&P without abnormal findings Medical Established Patient with Karla Clark INTERNET TECHNOLOGY MANAGER 08/27/2022 Last Documented On 3 9:20AM ; [facility] [H92.02 - Otalgia, left ear] earache Med ical Established Patient with Karla Clark INTERNET TECHNOLOGY MANAGER 06/18/2022 Last Documented On 3 12:11PM ; [facility] [M79.604 - Pain in right leg ] pain in right leg Medical Established Patient with Karla Clark INTERNET TECHNOLOGY MANAGER 06/18/2022 Last Documented On 3 12:11PM ; [facility] [Z68.24 - Body mass index [B DE] 24.0-24.9, adult] assessment of body mass index Medical Established Patient with Karla Clark INTERNET TECHNOLOGY MANAGER 06/18/2022 Last Documented On 3 12:11PM ; [facility] Assessment of tobacco use Medical Establ ished Patient with Karlajulius Clark INTERNET TECHNOLOGY MANAGER 06/18/2022 Last Documented On 3 12:11PM ; [facility] Diabetes Risk Test Score was four score 06/18/2022 Medical Established Patient with Karlajulius Clark INTERNET TECHNOLOGY MANAGER 06/18/2022 Last Documented On 3 12:11PM ; [facility] Schizoaffective disorder Established Patient with Yin Feliz LPCC-S 03/20/2022 Last Documented On 2 12:13AM ; [facility] No cough Medical Established Patient with Karla Amber INTERNET TECHNOLOGY MANAGER 12/20/2021 Last Documented On 2 3:12PM ; [facility] Visit for: screening for hum an immunodeficiency virus Medical Established Patient with Karla Clark INTERNET TECHNOLOGY MANAGER 12/20/2021 Last Documented On 2 3:12PM ; [facility] Z68.24 - Body mass index [BM I] 24.0-24.9, adult Medical Established Patient with Karlajulius Floresen INTERNET TECHNOLOGY MANAGER 12/20/2021 Last Documented On 2 3:12PM ; [facility] Bipolar disorder NOS Established Patient with Yin Feliz LPCC-S 11/03/2021 Last Documented On 2 7:00PM ; [facility] Bipolar schizoaffective disorder BH Esta blished Patient with Yin Feliz LPCC-S 11/03/2021 Last Documented On 2 7:00PM ; [facility] PLAN Medical Established Patient with Don Pino MD 11/03/2021 Last Documented On 2 10:40AM ; [facility] Abnormal electrocardiogram Medical Estab lished Patient with Don Pino MD 11/03/2021 Last Documented On 2 10:40AM ; [facility] Z68.24 - Body mass index [BM I] 24.0-24.9, adult Medical Established Patient with Don Pino MD 11/03/2021 Last Documented On 2 10:40AM ; [facility] Cough Medical Established Patient with Karlajulius Clark INTERNET TECHNOLOGY MANAGER 07/28/2021 Last Documented On 2 2:01PM ; [facility] Intervention and counseling on cessation of tobacco use, 3-10 minutes Discussed medication and nicotine replacement for tobacco cessation Medical Established Patient with Karla Amber INTERNET TECHNOLOGY MANAGER 07/28/2021 Last Documented On 2 2:01PM ; [facility] Nicotine dependence Medical Established Patient with Karla Amber INTERNET TECHNOLOGY MANAGER 07/28/2021 Last Documented On 2 2:01PM ; [facility] Z68.24 - Body mass index [BM I] 24.0-24.9, adult Medical Established Patient with Karla Amber INTERNET TECHNOLOGY MANAGER 07/28/2021 Last Documented On 2 2:01PM ; [facility] Assess Colon screening Medical Established Patie nt with Karla Amber INTERNET TECHNOLOGY MANAGER 05/08/2021 Last Documented On 1 10:59AM ; [facility] Diabetes Risk Test Score was four score 05/08/2021 Medical Established Patient with Karla Amber INTERNET TECHNOLOGY MANAGER 05/08/2021 Last Documented On 1 10:59AM ; [facility] Routine adult history and ph ysical (18-64 yrs) without abnormal findings Medical Established Patient with Karla Amber INTERNET TECHNOLOGY MANAGER 05/08/2021 Last Documented On 1 10:59AM ; [facility] Z68.24 - Body mass index [BM I] 24.0-24.9, adult Medical Established Patient with Karla Amber INTERNET TECHNOLOGY MANAGER 05/08/2021 Last Documented On 1 10:59AM ; [facility] Z68.24 - Body mass index [BM I] 24.0-24.9, adult Medical Established Patient with Karla Amber INTERNET TECHNOLOGY MANAGER 06/17/2020 Last Documented On 1 10:30AM ; [facility] Overweight Medical Established Patient with Karla Amber INTERNET TECHNOLOGY MANAGER 06/06/2020 Last Documented On 1 2:06PM ; [facility] Z68.25 - Body mass index [BM I] 25.0-25.9, adult Medical Established Patient with Karlajulius Clark INTERNET TECHNOLOGY MANAGER 06/06/2020 Last Documented On 1 2:06PM ; [facility] Antiasthmatics [facility] Asthma Clinic-New with Karla Amber INTERNET TECHNOLOGY MANAGER 05/06/2020 Last Documented On 0 7:27PM ; [facility] Assessment of tobacco use [facility]-New with Karla Amber INTERNET TECHNOLOGY MANAGER 05/06/2020 Last Documented On 0 7:27PM ; [facility] Body mass index [facility]-New with Karlajulius Floresen INTERNET TECHNOLOGY MANAGER 05/06/2020 Last Documented On 0 7:27PM ; [facility] Chronic obstructive pulmonary disease S [facility]-New with Karlajulius Floresen INTERNET TECHNOLOGY MANAGER 05/06/2020 Last Documented On 0 7:27PM ; [facility] Overweight [facility] Clinic-New with Karla Amber INTERNET TECHNOLOGY MANAGER 05/06/2020 Last Documented On 0 7:27PM ; [facility] Z11.4 - Encounter for screen ing for human immunodeficiency virus [HIV] [facility]-New with Karlajulius Clark INTERNET TECHNOLOGY MANAGER 05/06/2020 Last Documented On 0 7:27PM ; [facility] Diabetes Risk Test Score was three score 03/31/2020 Medical Established Patient with Karla Floresen INTERNET TECHNOLOGY MANAGER 03/31/2020 Last Documented On 0 3:22PM ; [facility] Overweight Medical Established Patient with Karla Amber INTERNET TECHNOLOGY MANAGER 03/31/2020 Last Documented On 0 3:22PM ; [facility] Z68.25 - Body mass index [BM I] 25.0-25.9, adult Medical Established Patient with Karla Amber INTERNET TECHNOLOGY MANAGER 03/31/2020 Last Documented On 0 3:22PM ; [facility] Encounter for Immunization Nurse Visit with Gary Clark INTERNET TECHNOLOGY MANAGER 03/14/2020 Last Documented On 0 5:11PM ; [facility] Body mass index Medical Established Patient with Karla Floresen INTERNET TECHNOLOGY MANAGER 02/26/2020 Last Documented On 0 1:18PM ; [facility] Overweight Medical Established Patient with Karla Amber INTERNET TECHNOLOGY MANAGER 02/26/2020 Last Documented On 0 1:18PM ; [facility] Overweight Medical Established Patient with Karla Floresen INTERNET TECHNOLOGY MANAGER 07/23/2019 Last Documented On 0 2:33PM ; [facility] Z68.27 - Body mass index (BM I) 27.0-27.9, adult Medical Established Patient with Karla Floresen INTERNET TECHNOLOGY MANAGER 07/23/2019 Last Documented On 0 2:33PM ; [facility] Occasional asthma CPS- Asthma Clinic- F/U with A french Clark INTERNET TECHNOLOGY MANAGER 06/05/2019 Last Documented On 0 7:04PM ; [facility] Overweight CPS- [facility] Clinic- F/U with Aim julius Clark INTERNET TECHNOLOGY MANAGER 06/05/2019 Last Documented On 0 7:04PM ; [facility] Z68.27 - Body mass index (BM I) 27.0-27.9 adult CPS- [facility] Clinic- F/U with Karla Clark INTERNET TECHNOLOGY MANAGER 06/05/2019 Last Documented On 0 7:04PM ; [facility] Occasional asthma CPS Med Review with Karla dinh INTERNET TECHNOLOGY MANAGER 04/23/2019 Last Documented On 9 4:01PM ; [facility] Overweight CPS Med Review with Karla Floresen INTERNET TECHNOLOGY MANAGER 04/23/2019 Last Documented On 9 4:01PM ; [facility] Z68.27 - Body mass index (BM I) 27.0-27.9 adult CPS Med Review with Karla Floresen INTERNET TECHNOLOGY MANAGER 04/23/2019 Last Documented On 9 4:01PM ; [facility] Acute pharyngitis Medical Established Patient wi th Brandy Kelley INTERNET TECHNOLOGY MANAGER 04/15/2019 Last Documented On 9 12:31PM ; [facility] Asthmatic bronchitis with ac [place] exacerbation Medical Established Patient with Brandy Serranoer INTERNET TECHNOLOGY MANAGER 04/15/2019 Last Documented On 9 12:31PM ; [facility] Fagerstrom Score was two Medical Established Pat ient with Brandy Warren INTERNET TECHNOLOGY MANAGER 04/15/2019 Last Documented On 9 12:31PM ; [facility] PHQ-9: total score was three 04/15/2019 Medical Established Patient with Brandy Warren INTERNET TECHNOLOGY MANAGER 04/15/2019 Last Documented On 9 12:31PM ; [facility] Body mass index Medical Established Patient with Karla Amber INTERNET TECHNOLOGY MANAGER 03/05/2019 Last Documented On 9 10:27AM ; [facility] Diabetes Risk Test Score was three score Medical Established Patient with Karla Amber INTERNET TECHNOLOGY MANAGER 03/05/2019 Last Documented On 9 10:27AM ; [facility] Overweight Medical Established Patient with Karla Amber INTERNET TECHNOLOGY MANAGER 03/05/2019 Last Documented On 9 10:27AM ; [facility] Z68.28 - Body mass index (BM I) 28.0-28.9, adult Medical Established Patient with Karla Amber INTERNET TECHNOLOGY MANAGER 12/22/2018 Last Documented On 9 10:32AM ; [facility] Assess routine adult history and physical (18 - 64 yrs) Medical Established Patient with Karla Amber INTERNET TECHNOLOGY MANAGER 11/06/2018 Last Documented On 9 2:26PM ; [facility] Overweight Medical Established Patient with Karla Amber INTERNET TECHNOLOGY MANAGER 11/06/2018 Last Documented On 9 2:26PM ; [facility] Z68.28 - Body mass index (BM I) 28.0-28.9, adult Medical Established Patient with Karla Amber INTERNET TECHNOLOGY MANAGER 11/06/2018 Last Documented On 9 2:26PM ; [facility] Assess dysphagia Medical Established Patient wit h Karla Amber INTERNET TECHNOLOGY MANAGER 09/11/2018 Last Documented On 9 10:53AM ; [facility] Assess routine adult history and physical (18 - 64 yrs) Medical Established Patient with Karla Amber INTERNET TECHNOLOGY MANAGER 09/11/2018 Last Documented On 9 10:53AM ; [facility] Assess primary insomnia with sleep apnea Medical Established Patient with Karla Amber INTERNET TECHNOLOGY MANAGER 09/04/2018 Last Documented On 9 2:23PM ; [facility] Assess routine adult history and physical (18 - 64 yrs) Medical Established Patient with Karla Clark CNP 09/04/2018 Last Documented On 9 2:23PM ; [facility] Overweight Medical Established Patient with Karla Clark CNP 09/04/2018 Last Documented On 9 2:23PM ; [facility] Z68.29 - Body mass index (BM I) 29.0-29.9, adult Medical Established Patient with Karla Clark CNP 09/04/2018 Last Documented On 9 2:23PM ; [facility] Assess vaginal candidiasis Medical Estab lished Patient with Karla Clark CNP 07/31/2018 Last Documented On 9 2:12PM ; [facility] Work Phone: 1(184) 813-975005-03-2024 Progress note* Progress note Date Encounter Last Documented by 10/04/2023 Medical Established Patient Last documented on 10/04/2023; 6:30 PM, Karla Clark DAKSHA; [facility] Active Problems & Conditions - J45.909 [...] thyroid gland removed in Jul 2023 at [facility] Had lesion removed from nose and [...] once daily, 0 days, 0 refills - [place] Carbonate 150 MG Oral Capsule one capsule [...] Bipolar disorder NOS Depression Heart Attack 03/2021 [facility]. Surgical: - General surgery right shoulder ORIF [...] BP-Sitting L142/88 mmHg BP Cuff SizeRegular Pulse Rate-Etudodd29 bpm Foikfl79 in Qzdpcf225 lbs Body Mass Index25.2 kg/m2 Body Surface Area1.7 m2 Oxygen [id number] % - Vitals taken 10/04/2023 01:33 pm [...] clothing: No, unable to get needed children's ministry director: No, unable to get needed phone: [...] 60 years or older (3 points) [Pre-DM]. [facility]05-03-2024 Instructions Includes: Instructions for all patient encounters Instructions to patient Intervention and counseling on cessation of tobacco use, 3-10 minutes Discussed medication and nicotine replacement for tobacco cessation Last Documented On 3 8:54AM ; [facility] Intervention and counseling on cessation of tobacco use, 3-10 minutes Discussed medication and nicotine replacement for tobacco cessation Last Documented On 2 1:56PM ; [facility] Intervention and counseling on cessation of tobacco use, 3-10 minutes Last Documented On 0 2:07PM ; [facility] Return to the clinic if cond ition worsens or new symptoms arise Last Documented On 9 1:59PM ; [facility] Intervention and counseling on cessation of tobacco use, 3-10 minutes Last Documented On 9 10:39AM ; [facility] Education and Decision Aids were provided during visit for: Discussed nutritional needs teach healthy choices including fruits and vegetables Last Documented On 4 1:26PM ; [facility] Patient education about a pr oper diet Last Documented On 4 1:26PM ; [facility] Discussed concerns about exe rcise : promote physical activity Last Documented On 4 1:26PM ; [facility] Discussed nutritional needs teach healthy choices including fruits and vegetables Last Documented On 3 10:55AM ; [facility] Patient education about a pr oper diet Last Documented On 3 10:55AM ; [facility] Discussed concerns about exe rcise : promote physical activity Last Documented On 3 10:55AM ; [facility] Discussed nutritional needs teach healthy choices including fruits and vegetables Last Documented On 3 9:37AM ; [facility] Patient education about a pr oper diet Last Documented On 3 9:37AM ; [facility] Discussed concerns about exe rcise : promote physical activity Last Documented On 3 9:37AM ; [facility] Not requesting contraception Last Documented On 3 9:37AM ; [facility] Discussed nutritional needs teach healthy choices including fruits and vegetables Last Documented On 3 9:20AM ; [facility] Patient education about a pr [...] [facility] Patient [...] [facility] Patient [...] Last Documented On 3 11:28AM ; [facility] Patient education about a pr oper diet Last Documented On 3 11:28AM ; [facility] Discussed concerns about exe rcise : promote physical activity Last Documented On 3 11:28AM ; [facility] Discussed nutritional needs teach healthy choices including fruits and vegetables Last Documented On 2 2:01PM ; [facility] Patient education about a pr oper diet Last Documented On 2 2:01PM ; [facility] Discussed concerns about exe rcise : promote physical activity Last Documented On 2 2:01PM ; [facility] Discussed nutritional needs teach healthy choices including fruits and vegetables Last Documented On 2 2:11PM ; [facility] Patient education about a pr oper diet Last Documented On 2 2:11PM ; [facility] Discussed concerns about exe rcise : promote physical activity Last Documented On 2 2:11PM ; [facility] Discussed current self-care methods/coping skills. ~Validated and normalized pt's feelings while assisting patient process recent events. ~Discussed ongoing counseling. ~Discussed lifestyle changes to address chronic illness. ~Supported patient's personal health goals ~wordfinds. walk, read, eat, enjoy my best friesnd Last Documented On 2 5:54PM ; [facility] Discussed nutritional needs teach healthy choices including fruits and vegetables Last Documented On 2 10:04AM ; [facility] Patient education about a pr oper diet Last Documented On 2 10:04AM ; [facility] Discussed concerns about exe rcise : promote physical activity Last Documented On 2 10:04AM ; [facility] Discussed nutritional needs teach healthy choices including fruits and vegetables Last Documented On 2 1:25PM ; [facility] Patient education about a pr oper diet Last Documented On 2 1:25PM ; [facility] Discussed concerns about exe rcise : promote physical activity Last Documented On 2 1:25PM ; [facility] Discussed nutritional needs teach healthy choices including fruits and vegetables Last Documented On 1 10:08AM ; [facility] Patient education about a pr oper diet Last Documented On 1 10:08AM ; [facility] Discussed concerns about exe rcise : promote physical activity Last Documented On 1 10:08AM ; [facility] Discussed nutritional needs teach healthy choices including fruits and vegetables Last Documented On 1 1:12PM ; [facility] Patient education about a pr oper diet Last Documented On 1 1:12PM ; [facility] Patient education about a pr oper diet Last Documented On 1 1:30PM ; [facility] Patient education about meal planning Last Documented On 1 1:30PM ; [facility] Education about changing eat ing habits Last Documented On 1 1:30PM ; [facility] Patient education about high fiber diet Last Documented On 1 1:30PM ; [facility] Patient education about low fat diet Last Documented On 1 1:30PM ; [facility] Patient education about low cholesterol diet Last Documented On 1 1:30PM ; [facility] Patient education about low carbohydrate diet Last Documented On 1 1:30PM ; [facility] Patient education about high protein diet Last Documented On 1 1:30PM ; [facility] Discussed concerns about exe rcise : promote physical activity Last Documented On 1 1:12PM ; [facility] Education/counseling conduct ed by pharmacist Last Documented On 0 1:39PM ; [facility] Vaccination counseling Last Documented On 0 1:39PM ; [facility] Discussed concerns about exe rcise : promote physical activity Last Documented On 0 2:16PM ; [facility] Patient goals decrease short ness of breath episodes Last Documented On 0 2:11PM ; [facility] Patient states that she uses her [...] recently Last Documented On 0 2:24PM ; [facility] Patient education about a pr oper diet Last Documented On 0 2:54PM ; [facility] Patient education about meal planning Last Documented On 0 2:54PM ; [facility] Education about changing eat ing habits Last Documented On 0 2:54PM ; [facility] Patient education about high fiber diet Last Documented On 0 2:54PM ; [facility] Patient education about low fat diet Last Documented On 0 2:54PM ; [facility] Patient education about low cholesterol diet Last Documented On 0 2:54PM ; [facility] Patient education about low carbohydrate diet Last Documented On 0 2:54PM ; [facility] Patient education about high protein diet Last Documented On 0 2:54PM ; [facility] Discussed nutritional needs teach healthy choices including fruits and vegetables Last Documented On 0 11:11AM ; [facility] Patient education about a pr oper diet Last Documented On 0 11:11AM ; [facility] Patient education about a pr oper diet Last Documented On 0 11:28AM ; [facility] Patient education about meal planning Last Documented On 0 11:28AM ; [facility] Education about changing eat ing habits Last Documented On 0 11:28AM ; [facility] Patient education about high fiber diet Last Documented On 0 11:28AM ; [facility] Patient education about low fat diet Last Documented On 0 11:28AM ; [facility] Patient education about low cholesterol diet Last Documented On 0 11:28AM ; [facility] Patient education about low carbohydrate diet Last Documented On 0 11:28AM ; [facility] Patient education about high protein diet Last Documented On 0 11:28AM ; [facility] Discussed concerns about exe rcise : promote physical activity Last Documented On 0 11:11AM ; [facility] Education/counseling conduct ed by pharmacist Last Documented On 0 1:41PM ; [facility] Patient states that she lonnie gonzalez [...] own Last Documented On 0 2:08PM ; [facility] Education/counseling conduct ed by pharmacist Last Documented On 9 1:12PM ; [facility] Patient states that she lonnie gonzalez has issues with her inhaler with the spacer. Patient did not bring in inhaler or spacer. Patient was told to bring in inhalers at next scheduled visit for pharmacist to assess inhalation technique. Patient is agreeable Last Documented On 9 1:13PM ; [facility] Patient goals Start using ch deon to help with inhaling dulera Last Documented On 9 2:40PM ; [facility] Patient states that she is g [...] vaccines Last Documented On 9 2:51PM ; [facility] Discussed nutritional needs teach healthy choices including fruits and vegetables Last Documented On 9 9:29AM ; [facility] Patient education about a pr oper diet Last Documented On 9 9:29AM ; [facility] Discussed concerns about exe rcise : promote physical activity Last Documented On 9 9:29AM ; [facility] Work Phone: 1(144) 205-394905-02-2024 Instructions Includes: Instructions for all patient encounters Instructions to patient Intervention and counseling on cessation of tobacco use, 3-10 minutes Discussed medication and nicotine replacement for tobacco cessation Last Documented On 3 8:54AM ; [facility] Intervention and counseling on cessation of tobacco use, 3-10 minutes Discussed medication and nicotine replacement for tobacco cessation Last Documented On 2 1:56PM ; [facility] Intervention and counseling on cessation of tobacco use, 3-10 minutes Last Documented On 0 2:07PM ; [facility] Return to the clinic if cond ition worsens or new symptoms arise Last Documented On 9 1:59PM ; [facility] Intervention and counseling on cessation of tobacco use, 3-10 minutes Last Documented On 9 10:39AM ; [facility] Education and Decision Aids were provided during visit for: Discussed nutritional needs teach healthy choices including fruits and vegetables Last Documented On 3 10:55AM ; [facility] Patient education about a pr oper diet Last Documented On 3 10:55AM ; [facility] Discussed concerns about exe rcise : promote physical activity Last Documented On 3 10:55AM ; [facility] Discussed nutritional needs teach healthy choices including fruits and vegetables Last Documented On 3 9:37AM ; [facility] Patient education about a pr oper diet Last Documented On 3 9:37AM ; [facility] Discussed concerns about exe rcise : promote physical activity Last Documented On 3 9:37AM ; [facility] Not requesting contraception Last Documented On 3 9:37AM ; [facility] Discussed nutritional needs teach healthy choices including fruits and vegetables Last Documented On 3 9:20AM ; [facility] Patient education about a pr oper diet Last Documented On 3 9:20AM ; [facility] Discussed concerns about exe rcise : promote physical activity Last Documented On 3 9:20AM ; [facility] Discussed nutritional needs teach healthy choices including fruits and vegetables Last Documented On 3 2:02PM ; [facility] Patient education about a pr oper diet Last Documented On 3 2:02PM ; [facility] Discussed concerns about exe rcise : promote physical activity Last Documented On 3 2:02PM ; [facility] Discussed nutritional needs teach healthy choices including fruits and vegetables Last Documented On 3 8:32AM ; [facility] Patient education about a pr oper diet Last Documented On 3 8:32AM ; [facility] Discussed concerns about exe rcise : promote physical activity Last Documented On 3 8:32AM ; [facility] Discussed nutritional needs teach healthy choices including fruits and vegetables Last Documented On 3 11:28AM ; [facility] Patient education about a pr oper diet Last Documented On 3 11:28AM ; [facility] Discussed concerns about exe rcise : promote physical activity Last Documented On 3 11:28AM ; [facility] Discussed nutritional needs teach healthy choices including fruits and vegetables Last Documented On 2 2:01PM ; [facility] Patient education about a pr oper diet Last Documented On 2 2:01PM ; [facility] Discussed concerns about exe rcise : promote physical activity Last Documented On 2 2:01PM ; [facility] Discussed nutritional needs teach healthy choices including fruits and vegetables Last Documented On 2 2:11PM ; [facility] Patient education about a pr oper diet Last Documented On 2 2:11PM ; [facility] Discussed concerns about exe rcise : promote physical activity Last Documented On 2 2:11PM ; [facility] Discussed current self-care methods/coping skills. ~Validated and normalized pt's feelings while assisting patient process recent events. ~Discussed ongoing counseling. ~Discussed lifestyle changes to address chronic illness. ~Supported patient's personal health goals ~wordfinds. walk, read, eat, enjoy my best friesnd Last Documented On 2 5:54PM ; [facility] Discussed nutritional needs teach healthy choices including fruits and vegetables Last Documented On 2 10:04AM ; [facility] Patient education about a pr oper diet Last Documented On 2 10:04AM ; [facility] Discussed concerns about exe rcise : promote physical activity Last Documented On 2 10:04AM ; [facility] Discussed nutritional needs teach healthy choices including fruits and vegetables Last Documented On 2 1:25PM ; [facility] Patient education about a pr oper diet Last Documented On 2 1:25PM ; [facility] Discussed concerns about exe rcise : promote physical activity Last Documented On 2 1:25PM ; [facility] Discussed nutritional needs teach healthy choices including fruits and vegetables Last Documented On 1 10:08AM ; [facility] Patient education about a pr oper diet Last Documented On 1 10:08AM ; [facility] Discussed concerns about exe rcise : promote physical activity Last Documented On 1 10:08AM ; [facility] Discussed nutritional needs teach healthy choices including fruits and vegetables Last Documented On 1 1:12PM ; [facility] Patient education about a pr oper diet Last Documented On 1 1:12PM ; [facility] Patient education about a pr oper diet Last Documented On 1 1:30PM ; [facility] Patient education about meal planning Last Documented On 1 1:30PM ; [facility] Education about changing eat ing habits Last Documented On 1 1:30PM ; [facility] Patient education about high fiber diet Last Documented On 1 1:30PM ; [facility] Patient education about low fat diet Last Documented On 1 1:30PM ; [facility] Patient education about low cholesterol diet Last Documented On 1 1:30PM ; [facility] Patient education about low carbohydrate diet Last Documented On 1 1:30PM ; [facility] Patient education about high protein diet Last Documented On 1 1:30PM ; [facility] Discussed concerns about exe rcise : promote physical activity Last Documented On 1 1:12PM ; [facility] Education/counseling conduct ed by pharmacist Last Documented On 0 1:39PM ; [facility] Vaccination counseling Last Documented On 0 1:39PM ; [facility] Discussed concerns about exe rcise : promote physical activity Last Documented On 0 2:16PM ; [facility] Patient goals decrease short ness of breath episodes Last Documented On 0 2:11PM ; [facility] Patient states that she uses her [...] recently Last Documented On 0 2:24PM ; [facility] Patient education about a pr oper diet Last Documented On 0 2:54PM ; [facility] Patient education about meal planning Last Documented On 0 2:54PM ; [facility] Education about changing eat ing habits Last Documented On 0 2:54PM ; [facility] Patient education about high fiber diet Last Documented On 0 2:54PM ; [facility] Patient education about low fat diet Last Documented On 0 2:54PM ; [facility] Patient education about low cholesterol diet Last Documented On 0 2:54PM ; [facility] Patient education about low carbohydrate diet Last Documented On 0 2:54PM ; [facility] Patient education about high protein diet Last Documented On 0 2:54PM ; [facility] Discussed nutritional needs teach healthy choices including fruits and vegetables Last Documented On 0 11:11AM ; [facility] Patient education about a pr oper diet Last Documented On 0 11:11AM ; [facility] Patient education about a pr oper diet Last Documented On 0 11:28AM ; [facility] Patient education about meal planning Last Documented On 0 11:28AM ; [facility] Education about changing eat ing habits Last Documented On 0 11:28AM ; [facility] Patient education about high fiber diet Last Documented On 0 11:28AM ; [facility] Patient education about low fat diet Last Documented On 0 11:28AM ; [facility] Patient education about low cholesterol diet Last Documented On 0 11:28AM ; [facility] Patient education about low carbohydrate diet Last Documented On 0 11:28AM ; [facility] Patient education about high protein diet Last Documented On 0 11:28AM ; [facility] Discussed concerns about exe rcise : promote physical activity Last Documented On 0 11:11AM ; [facility] Education/counseling conduct ed by pharmacist Last Documented On 0 1:41PM ; [facility] Patient states that she lonnie gonzalez [...] own Last Documented On 0 2:08PM ; [facility] Education/counseling conduct ed by pharmacist Last Documented On 9 1:12PM ; [facility] Patient states that she lonnie gonzalez has issues with her inhaler with the spacer. Patient did not bring in inhaler or spacer. Patient was told to bring in inhalers at next scheduled visit for pharmacist to assess inhalation technique. Patient is agreeable Last Documented On 9 1:13PM ; [facility] Patient goals Start using ch deon to help with inhaling dulera Last Documented On 9 2:40PM ; [facility] Patient states that she is g [...] vaccines Last Documented On 9 2:51PM ; [facility] Discussed nutritional needs teach healthy choices including fruits and vegetables Last Documented On 9 9:29AM ; [facility] Patient education about a pr oper diet Last Documented On 9 9:29AM ; [facility] Discussed concerns about exe rcise : promote physical activity Last Documented On 9 9:29AM ; [facility] Work Phone: 1(780) 708-551105-01-2024 Progress note* Progress note Date Encounter Last Documented by 10/02/2023 Chart Update Last documented on 10/03/2023; 8:39 AM, Karla Clark CNP; [facility] Active Problems & Conditions - J20.9 [...] 1 actuation by mouth twice daily (replaces [employer] r/t insurance), 30 days, 11 refills - [...] once daily, 0 days, 0 refills - Attalla Carbonate 150 MG Oral Capsule one capsule [...] Bipolar disorder NOS Depression Heart Attack 03/2021 [facility]. Surgical: - General surgery right shoulder ORIF [...] Health Reminders - Mammogram Needed satisfied 05/28/2024. [facility]04-26-2024 NoteHNO ID: [id number] Author: YANDEL DANIEL MD Service: ? Author Type: Physician Type: Progress Notes Filed: 09/28/2023 13:37 Note Text: Gail Almeida [id number] September 27, 2023 [facility] Note CC: Follow-up thyroid cancer [...] by mouth every 12 hours as needed. mylknu-kagkehsf-oamtzsf (ENZADYNE) 9,000-112,500- 112,500 unit capsule Take 1 [...] findings and plan of care. Yandel Daniel, [facility]04-26-2024 Nurse Note* Fabienne Deleon OCCA - 09/27/2023 9:29 AM EDT Tobacco Use: .25 packs/day, for 40 years. Types: Cigarettes Was smoking cessation packet given? Patient Declined Was a referral initiated?Patient declined. [facility]04-26-2024 Nurse Note* Fabienne Deleon OCCA - 09/27/2023 9:29 AM EDT Tobacco Use: .25 packs/day, for 40 years. Types: Cigarettes Was smoking cessation packet given? Patient Declined Was a referral initiated?Patient declined. documented in [facility] encounterA[facility] History of Present illness Narrative* Yandel Daniel MD - 09/27/2023 9:15 AM EDT Gail Almeida [id number] September 27, 2023 [facility] Note [...] by mouth every 12 hours as needed. siaagt-hiagrggr-yrvlajw (ENZADYNE) 9,000-112,500- 112,500 unit capsule Take 1 [...] care. Yandel Daniel MD documented in this encounterA[facility]04-[facility]-2024 Miscellaneous Notes* Telephone Encounter - Radha Brice RN - 09/03/2023 7:59 AM EDT No return call for [facility]. Closing encounter. * Telephone Encounter - Radha Brice RN - 08/09/2023 4:27 PM EST Called [facility] Transferred to [facility]. No answer phone continued ringing no voicemail available. * Telephone Encounter - Nena Rodriguez - 08/09/2023 9:42 AM EST Person Calling: Margaux - TAWANNA at [facility] Reason for Call: patient is going to need refills on levothyroxine and calcium carbonate. She was unsure if we would fill that request or her pcp Margaux: [phone] Pharmacy Name and # : [place] [address] - [address] [phone] [address] [facility] [address] [facility] [address] Pt last seen: 06/28/2023 Nena Rodriguez documented in this encounterA[facility]03-19-[facility]24 Discharge summary Author Reynaldo Kraft [facility] August 20, 2023 12:42pm Note Date/Time August 20, 2023 8:[address] [place] [address] [place] [address] Discharge Summary Signed Patient: Gail Almeida MR#: [id number] : 1955 Acct:[id number] Age/Sex: 67 / F Adm Date: 4 Loc: 1S Room: [address] [place] [address]: Joe Davis MD Copies to: [...] 2 times total 1 time here in [facility] and another time at a different hospital Past suicide attempts: Denies previous suicidal attempts Previous medications: Reports Seroquel, Attalla, Zyprexa, Cogentin Alcohol and Drug Use: Denies alcohol use. Denies street drugs. 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 She [...] Instructions: Important Contact Information You can call [facility] at [phone] any time day or night if you have emergent questions or question regarding discharge instructions. If at any time you are feeling an increase inyour psychiatric symptoms, call your physician or behavioral healthcare provider. If any time you have thoughts of harming yourself or others contact one of the following: Call (available 24/12) Crisis Text Line (available 24/12) text 4HOPE to 242450 [facility] Hope Line (available 8 a.m. Midnight) call [phone] ([phone]) Regular Diet No Activity Restrictions Instructions: Schizoaffective Disorder (DC), [facility] Behavioral Health DC Instructions Prescriptions: New lithium [...] mg PO DAILY fluticasone propionate 50 mcg/actuation [place],Suspension 1 spray INTRANASAL BID Rx Instructions: inhale [...] tablet 10 mg PO QHS Follow Up: [facility] [Outside] - 09/10/23 8:40 am (A top case assembler will call you on Saturday08/21/23 between 8:00am and 12:00pm. Psychiatry: Saturday09/10/23 at 8:40am with Dr. Munoz. ) Karla Clark APRN, [facility] [Referring] - (Contact your PCP with medical needs. ) Documented By: Reynaldo Kraft MD 08/20/23 [id number] Signed By: <Electronically signed by Reynaldo Kraft MD> 08/20/23 9513 [facility] Work Phone: 1(547) 707-309103-18-2024 Progress note Author Reynaldo Kraft [facility] August 19, 2023 12:04pm Note Date/Time August 19, 2023 12: 04pm [facility] ENTER [address] [place] [address] Psychiatry Progress Note Signed Patient: Gail Almeida MR#: [id number] : 1955 Acct:[id number] Age/Sex: 67 / F Adm Date: 4 Loc: Room: [address] [place] [address] Type : ADM IN Attending Dr: Joe [...] PO BID and 400 mg PO HS Attalla 300 mg PO BID. Cipro 500mg PO BID Continue to monitor mental status Encourage group participation and medication compliance Risk benefits alternatives explained Documented By: Reynaldo Kraft MD 08/19/231202 Signed By: <Electronically signed by Reynaldo Kraft MD> 08/19/231203 [facility] Work Phone: 1(368) 630-723503-17-2024 Progress note Author Joe rodriguez [facility] August 18, 2023 9:29am Note Date/Time August 18, 2023 9:2 9am [facility] ENTER [address] [place] [address] Psychiatry Progress Note Signed Patient: Gail Almeida MR#: [id number] : 1955 Acct:[id number] Age/Sex: 67 / F Adm Date: 4 Loc: Room: [address] [place] [address] Type : ADM IN Attending Dr: Joe [...] PO BID and 400 mg PO HS Attalla 300 mg PO BID. Obtain lithium level. [...] <Electronically signed by Joe Davis MD> 08/18/23 0961 [facility] Work Phone: 1(259) 440-912203-16-2024 Progress note Author Joe rodriguez [facility] August 17, 2023 6:38am Note Date/Time August 17, 2023 6:3 9am [facility] ENTER [address] [place] [address] Psychiatry Progress Note Signed Patient: Gail Almeida MR#: [id number] : 1955 Acct:[id number] Age/Sex: 67 / F Adm Date: 4 Loc: Room: [address] [place] [address] Type : ADM IN Attending Dr: Joe [...] 28.6 L TSH 3rd Generation 9.75 H Attalla 0.50 L Assessment/Plan Assessment/Plan (1) Schizoaffective disorder: Plan Patient denied any hallucinations this am. No SI/HI. Cogentin 0.5 mg PO BID Clonidine 0.1 mg PO Daily Zyprexa 5 mg PO Daily and 12.5 mg PO QHS Seroquel 12.5 mg PO BID and 400 mg PO HS Attalla 300 mg PO BID. Obtain lithium level. [...] signed by Joe Davis MD> 08/17/23 0638 [facility] Work Phone: 1(126) 634-993803-15-2024 History and physical note Author Joe rodriguez [facility] August 16, 2023 12:20pm Note Date/Time August 16, 2023 11: 24am [facility] [address] [place] [address] Psychiatry H&P Signed Patient: Gail Almeida MR#: [id number] : 1955 Acct:[id number] Age/Sex: 67 / F Adm Date: 4 Loc: Room: [address] [place] [address] Type: ADM IN Attending Dr: Joe Davis [...] 2 times total 1 time here in [facility] and another time at a different hospital Past suicide attempts: Denies previous suicidal attempts Previous medications: Reports Seroquel, Attalla, Zyprexa, Cogentin Alcohol and Drug Use: Denies alcohol use. Denies street drugs. 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 symptoms: Constitutional: Denies chills and [...] SI, HI, hallucination Insight: Poor Judgment: Poor [facility] Medical History Localized swelling, mass and lump, [...] oral powder 17 g PO DAILY PRN Csceflqcfptl44/10/23 [History Confirmed 08/15/23] quetiapine 400 mg tablet,extended [...] 08/15/23] dextromethorphan-guaifenesin 30 mg-600 mg tablet extended tigpwrh64 hr (Mucus DM) 1 tab PO Q12HR PRN cough 08/15/23 [History Confirmed 08/15/23] diclofenac sodium 1 % topical gel 2 g topical 4XD PRN pain 08/15/23 [History Confirmed 08/15/23] fluticasone 250 mcg-salmeterol 50 mcg/dose blistr powdr for inhalation (Advair Diskus) 1 inh inhalation BID 08/15/23 [History Confirmed 08/15/23] levothyroxine 112 mcg tablet 112 mcg PO 30 08/15/23 [History Confirmed 08/15/23] nystatin 100,000 unit/gram [...] Appearance Clear Urine pH 7.0 Ur Specific [place] 1.005 Urine Protein Negative Urine Glucose (UA) Normal Urine Ketones Negative Urine Occult Blood Negative Urine Nitrite Negative Ur Leukocyte Esterase 3+ H Urine RBC None seen Urine WBC 3-4 Attalla 0.50 L Assessment/Plan (1) Schizoaffective disorder: Plan [...] PO BID and 400 mg PO HS Attalla 300 mg PO BID. Obtain lithium level. [...] signed by Joe Davis MD> 08/16/23 1220 [facility] Work Phone: 1(157) 771-146002-13-2024 History of Present illness Narrative* Dakota Mack [...] Visit: pending biopsy results documented in this encounterSalem [facility] HospitalQigvbndhxs16-06-8913 NoteHNO ID: [id number] Author: YANDEL DANIEL MD Service: ? Author Type: Physician Type: Progress Notes Filed: 06/28/2023 15:37 Note Text: [facility] Note CC: Post op of [...] by mouth every 12 hours as needed. opclkn-subeuekp-ydpsell (ENZADYNE) 9,000-112,500- 112,500 unit capsule Take 1 [...] Mccabe Attestation: By signing my name below, IZora, attest that this documentation has been prepared under the direction and in the presence of Yandel Daniel MD. Electronically Signed: velma Diallo, June 28, 2023 1:53 PM June 28, 2023 I participated in t (more content not included)...[facility] 06-22-2023 NoteHNO ID: [id number] Author: IAN WITT MD Service: Otolaryngology Author Type: Resident Type: Progress Notes Filed: 06/22/2023 09:24 Note Text: [facility] - HEAD AND NECK SURGERY PROGRESS NOTE PAGE [phone] AFTER 1700 AND ON WEEKENDS Patient Name: [...] Head and Neck Surgery PGY 3 Pager: [phone] Service pager: [phone] (page after 5pm and on weekends) SUBJECTIVE: [...] 0659 06/22/23 0700 - 06/23/23 0659 Shift 6137-0707 8386-2726 4218-4530 24 Hour Total 5686-7966 5851-7977 6114-4682 24 Hour Total INTAKE PO(mL/kg) 840(12.92) 1290(19.85) 740(11.38) 2870(44.15) 360(5.54) 360(5.54) PO 840 4251 720 6956 360 360 Shift Total(mL/kg) 840(12.92) 1290(19.85) 740(11.38) [...] Stage 2 chronic kidney disease Goiter [facility]A: [facility] NoteHNO ID: [id number] Author: CHRIS LIVINGSTON RN Service: Care Management Author Type: Registered Nurse Type: Care Mgt Progress Note Filed: 06/21/2023 15:12 Note Text: CARE MANAGEMENT PROGRESS NOTE SERVICE DATE: 06/21/2023 SERVICE TIME: 2:26 PM LOS: 0 days Medically cleared for discharge back to [facility] [place] [id number] ([phone]) CM spoke with [facility] no long distance transport today or this weekend due to the weather. CM spoke with [place] she will see if [...] up at 11:00 AM Thursday 06/22, the tow motor driver will call the CM when they arrive. SIGNATURE: Chris Livingston RN PATIENT NAME: Gail Almeida DATE: June 21, 2023 TIME: 2:26 PM PAGER/CONTACT #: N/[facility]01-19-2024 NoteHNO ID: [id number] Author: GEMA CARVALHO MD Service: Endocrinology Author Type: Fellow Type: Plan of Care Filed: 06/21/2023 14:11 Note Text: Paged primary team about the consult to endocrine. Per primary they are discharging patient and would follow up outpatient. Was asked to D/C consult per , ENT resident.[facility] 06-21-2023 NoteHNO ID: [id number] Author: JANIS GATES MD Service: Otolaryngology Author Type: Resident Type: Progress Notes Filed: 06/21/2023 10:11 Note Text: [facility] - HEAD AND NECK SURGERY PROGRESS NOTE PAGE [phone] AFTER 1700 AND ON WEEKENDS Patient Name: [...] incisions BID - Dispo: please transfer to [facility] Janis Gates, PGY-2, Otolaryngology Service Pager: [phone] Pager: [phone] June 19, 2023 9:13 AM For questions after 5 PM and on weekends, please page [phone]. SUBJECTIVE: No acute events overnight. Pain well-controlled with current regimen. Breathing well on RA. Tolerating diet. OBJECTIVE: Vitals: 06/20/23 2100 06/20/23 2121 06/21/23 0052 06/21/23 0451 BP: 127/58 107/55 105/62 Pulse: 74 74 83 77 Resp: 16 16 Temp: 36.7 ?C (98.1 ?F) 36.2 ?C (97.2 ?F) 36 ?C (96.8 ?F) TempSrc: Oral Temporal Temporal SpO2: 95% 94% 93% 93% Weight: Height: Ins AND Outs: Date 06/20/23 07 - 06/21/23 0659 06/21/23 07 - 06/22/23 0659 Shift 3896-1027 2107-4162 0904-7372 24 Hour Total 4592-3900 6775-1599 3226-7205 24 Hour Total INTAKE PO 720 0671 373 3928 480 480 PO 720 7689 661 2738 480 480 IV 100 100 100 300 Volume (mL) (ceFAZolin iv piggyback 2 g in D5W (iso-osmotic) 100 mL (ANCEF)) 100 100 100 300 Shift Total 820 5812 500 6169 480 480 OUTPUT Urine 1050 1772 491 8420 Void (ml) 1050 3251 462 4612 Urine Not Saved. 2 x 2 x 2 x 2 x Tubes 15 10 7.5 32.5 Drain/Tube Output (Drain/Tube 06/18/23 1449 [facility] [place] Th[facility]) 15 10 7.5 32.5 [...] BID w MEALS famotidine (more content not included)...[facility]01-18-2024 NoteHNO ID: [id number] Author: JANIS GATES MD Service: Otolaryngology Author Type: Resident Type: Progress Notes Filed: 06/20/2023 07:09 Note Text: [facility] - HEAD AND NECK SURGERY PROGRESS NOTE PAGE [phone] AFTER 1700 AND ON WEEKENDS Patient Name: [...] output q8h - Dispo: please transfer to [facility] Janis Gates, PGY-2, Otolaryngology Service Pager: [phone] Pager: [phone] June 19, 2023 9:13 AM For questions after 5 PM and on weekends, please page [phone]. SUBJECTIVE: No acute events overnight. Pain well-controlled [...] Outs: Date 06/19/23 07 - 06/20/23 0659 06/20/23 07 - 06/21/23 0659 Shift 8998-0147 3812-2022 0650-6545 24 Hour Total 9309-3921 6795-7861 7485-5664 24 Hour Total INTAKE PO 4320 232 970 3577 PO 4320 276 838 0068 IV 100 100 Volume (mL) (ceFAZolin iv piggyback 2 g in D5W (iso-osmotic) 100 mL (ANCEF)) 100 100 Shift Total 4320 871 870 8488 OUTPUT Urine 500 9802 373 0398 Void (ml) 500 3486 386 0032 Urine Not Saved. 2 x 2 x Tubes 50 27.5 17.5 95 Drain/Tube Output (Drain/Tube 06/18/23 1449 [facility] [place] [facility]) 50 27.5 17.5 95 [...] Lozenge (CHLORASEPTIC) 1 Lozeng (more content not included)...[facility]01-17-2024 NoteHNO ID: [id number] Author: JANIS GATES MD Service: Otolaryngology Author Type: Resident Type: Progress Notes Filed: 06/19/2023 09:16 Note Text: [facility] - HEAD AND NECK SURGERY PROGRESS NOTE PAGE [phone] AFTER 1700 AND ON WEEKENDS Patient Name: [...] M81 Janis Gates, PGY-2, Otolaryngology Service Pager: [phone] Pager: [phone] June 19, 2023 9:13 AM For questions after 5 PM and on weekends, please page [phone]. SUBJECTIVE: No acute events overnight. Pain well-controlled with current regimen. Breathing well on RA. Tolerating diet. OBJECTIVE: Vitals: 06/18/23 2104 06/19/23 0108 06/19/23 0119 06/19/23 0519 BP: 155/79 157/71 143/75 Pulse: 82 65 73 Resp: 16 14 16 Temp: 36.7 ?C (98.1 ?F) 36.6 ?C (97.9 ?F) 36.3 ?C (97.4 ?F) TempSrc: Oral Temporal Oral SpO2: 96% 98% 98% Weight: Height: Ins AND Outs: Date 06/18/23 07 - 06/19/23 0659 06/19/23 07 - 06/20/23 0659 Shift 1033-7072 2781-5327 7118-9787 24 Hour Total 6974-5425 7488-1459 6993-2651 24 Hour Total INTAKE PO 120 490 610 360 360 PO 120 490 610 360 360 IV 1100 9521 547 8109 OR Crystalloid intake (mL) 1100 1100 Volume (mL) (ceFAZolin iv piggyback 2 g in D5W (iso-osmotic) 100 mL (ANCEF)) 100 100 Volume (mL) (ceFAZolin iv piggyback 2 g in D5W (iso-osmotic) 100 mL (ANCEF)) 50 100 150 Volume (mL) (lactated ringers iv infusion) 125 125 Volume (mL) (lactated ringers iv infusion) 1457 350 3153 Volume (mL) (NaCl 0.9% iv infusion) 468 500 968 Shift Total 1100 1963 1090 4153 360 360 OUTPUT Urine 513 721 4910 300 300 Void (ml) 747 837 8301 300 300 Urine Incontinence/Not Saved 1 x 1 x Urine Not Saved. 1 x 1 x Tubes 40 17.5 57.5 Drain/Tube Output (Drain/Tube 06/18/23 1449 [facility] [place] [facility]) 40 17.5 57.5 Shift [...] H PRN Or oxyCOD (more content not included)...[facility]01-17-2024 Note HNO ID: [id number] Author: JONATHAN VALENCIA RN Service: ? Author Type: Registered Nurse Type: Nursing Progress Note Filed: 06/19/2023 00:12 Note Text: Per Dr. Mendoza, draw PTH and ionized calcium together at 4 a.m.[facility]01-16-[facility]24 NoteHNO ID: [id number] Author: JANETH VARGAS DO Service: ? Author [...] June 18, 2023 TIME: 12:58 PM CSN: [id number] District Hospital01-16-2024 NoteHNO ID: [id number] Author: JANETH VARGAS DO Service: ? 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, care food service team member and patient Staffing Anesthesiologist: Janeth Vargas DO Resident: Deepak Hernandez MD Performed by: resident and anesthesiologist Indications and Patient Condition Indications for airway management: anesthesia Preoxygenated: yes anesthesia circuit Patient position: sniffing Method: asleep Final Airway Details Final airway type: endotracheal airway Final Endotracheal Airway: NIM tube Cuffed: yes Successful intubation technique: video laryngoscopy Devices used: Mary Endotracheal tube insertion site: oral Blade: Christiano [...] the primary surgeon/proceduralist with assistance. Signature: Janeth Steinberg DO Alicia Date: 06/18/2023 Time: 12:52 PM SIGNATURE: Deepak Escudero MD, MD PATIENT NAME: Gail Almeida DATE: June 18, 2023 TIME: 12:45 PM CSN: [id number] District Hospital12-28-2023 NoteHNO ID: [id number] Author: Yandel Daniel MD Service: ? Author Type: Physician Type: Progress Notes Filed: 05/30/2023 2:42 PM Note Text: [facility] Note CC: Preoperative appointment HPI: [...] by mouth every 12 hours as needed. rdaihe-hbpxrjjo-bvrrfii (ENZADYNE) 9,000-112,500- 112,500 unit capsule Take 1 [...] total thyroidectomy as scheduled (more content not included)...[facility]12-28-2023 NoteHNO ID: [id number] Author: Alea Smith RT(R) Service: Radiology Author [...] BY: RT Mendoza(R) May 30, 2023 10:19 [id number] Evaluation note Includes: Assessments for all patient encounters Findings Encounter Date [D48.5 - Neoplasm of uncerta in behavior of skin] skin neoplasm of uncertain behavior Medical Established Patient with Karla Clark INTERNET TECHNOLOGY MANAGER 05/22/2023 Last Documented On 3 1:30PM ; [facility] [Z68.24 - Body mass index [B DE] 24.0-24.9, adult] assessment of body mass index Medical Established Patient with Karla Clark INTERNET TECHNOLOGY MANAGER 05/22/2023 Last Documented On 3 1:30PM ; [facility] Assessment of tobacco use Medical Establ ished Patient with Karla Clark INTERNET TECHNOLOGY MANAGER 05/22/2023 Last Documented On 3 1:30PM ; [facility] [R30.0 - Dysuria] Dysuria Chart Update with Gary Clark [facility] 03/21/2023 Last Documented On 3 11:27AM ; [facility] [Z12.39 - Encounter for othe r screening for malignant neoplasm of breast] visit for: screening for malignant breast neoplasm Medical Established Patient with Aaron Whitaker INTERNET TECHNOLOGY MANAGER 02/28/2023 Last Documented On 3 9:51AM ; [facility] [Z68.24 - Body mass index [B DE] 24.0-24.9, adult] assessment of body mass index Medical Established Patient with Aaron Whitaker INTERNET TECHNOLOGY MANAGER 02/28/2023 Last Documented On 3 9:51AM ; [facility] Assessment of tobacco use Medical Establ ished Patient with Aaron Garcia Penharpreet INTERNET TECHNOLOGY MANAGER 02/28/2023 Last Documented On 3 9:51AM ; [facility] Chronic obstructive pulmonary disease Me dical Established Patient with Lina Penix INTERNET TECHNOLOGY MANAGER 02/28/2023 Last Documented On 3 9:51AM ; [facility] [J20.9 - Acute bronchitis, unspecified] acute bronchitis Medical Established Patient with Karla Clark INTERNET TECHNOLOGY MANAGER 11/19/2022 Last Documented On 3 10:15AM ; [facility] [M79.621 - Pain in right upp er arm] pain in upper arm Medical Established Patient with Karla Clark CNP 11/19/2022 Last Documented On 3 10:15AM ; [facility] [Z68.23 - Body mass index [B DE] 23.0-23.9, adult] assessment of body mass index Medical Established Patient with Karla Clark CNP 11/19/2022 Last Documented On 3 10:15AM ; [facility] [M79.601 - Pain in right arm ] pain in right arm Medical Established Patient with Karla Clark INTERNET TECHNOLOGY MANAGER 09/18/2022 Last Documented On 3 2:33PM ; [facility] [Z68.24 - Body mass index [B DE] 24.0-24.9, adult] assessment of body mass index Medical Established Patient with Karla Clark INTERNET TECHNOLOGY MANAGER 09/18/2022 Last Documented On 3 2:33PM ; [facility] Assessment of tobacco use Medical Establ ished Patient with Karla Clark INTERNET TECHNOLOGY MANAGER 09/18/2022 Last Documented On 3 2:33PM ; [facility] [M25.569 - Pain in unspecifi ed knee] arthralgia of knee / patella / tibia / fibula Medical Established Patient with Karla Clark CNP 08/27/2022 Last Documented On 3 9:20AM ; [facility] [Z68.24 - Body mass index [B DE] 24.0-24.9, adult] assessment of body mass index Medical Established Patient with Karla Clark CNP 08/27/2022 Last Documented On 3 9:20AM ; [facility] Intervention and counseling on cessation of tobacco use, 3-10 minutes Discussed medication and nicotine replacement for tobacco cessation Medical Established Patient with Karla Clark INTERNET TECHNOLOGY MANAGER 08/27/2022 Last Documented On 3 9:20AM ; [facility] Nicotine dependence Medical Established Patient with Karla Clark CNP 08/27/2022 Last Documented On 3 9:20AM ; [facility] Visit for routine adult H&P without abnormal findings Medical Established Patient with Karla Clark CNP 08/27/2022 Last Documented On 3 9:20AM ; [facility] [H92.02 - Otalgia, left ear] earache Med ical Established Patient with Karla Clark INTERNET TECHNOLOGY MANAGER 06/18/2022 Last Documented On 3 12:11PM ; [facility] [M79.604 - Pain in right leg ] pain in right leg Medical Established Patient with Karla Clark INTERNET TECHNOLOGY MANAGER 06/18/2022 Last Documented On 3 12:11PM ; [facility] [Z68.24 - Body mass index [B DE] 24.0-24.9, adult] assessment of body mass index Medical Established Patient with Karla Clark INTERNET TECHNOLOGY MANAGER 06/18/2022 Last Documented On 3 12:11PM ; [facility] Assessment of tobacco use Medical Establ ished Patient with Karla Clark INTERNET TECHNOLOGY MANAGER 06/18/2022 Last Documented On 3 12:11PM ; [facility] Diabetes Risk Test Score was four score 06/18/2022 Medical Established Patient with Karla Clark INTERNET TECHNOLOGY MANAGER 06/18/2022 Last Documented On 3 12:11PM ; [facility] Schizoaffective disorder Established Patient with Yin Feliz LPCC-S 03/20/2022 Last Documented On 2 12:13AM ; [facility] No cough Medical Established Patient with Karla Clark INTERNET TECHNOLOGY MANAGER 12/20/2021 Last Documented On 2 3:12PM ; [facility] Visit for: screening for hum an immunodeficiency virus Medical Established Patient with Karla Clark INTERNET TECHNOLOGY MANAGER 12/20/2021 Last Documented On 2 3:12PM ; [facility] Z68.24 - Body mass index [BM I] 24.0-24.9, adult Medical Established Patient with Karlajulius Floresen INTERNET TECHNOLOGY MANAGER 12/20/2021 Last Documented On 2 3:12PM ; [facility] Bipolar disorder NOS Established Patient with Yin Feliz LPCC-S 11/03/2021 Last Documented On 2 7:00PM ; [facility] Bipolar schizoaffective disorder Esta blished Patient with Yin Feliz LPCC-S 11/03/2021 Last Documented On 2 7:00PM ; [facility] PLAN Medical Established Patient with Don Pino MD 11/03/2021 Last Documented On 2 10:40AM ; [facility] Abnormal electrocardiogram Medical Estab lished Patient with Don Pino MD 11/03/2021 Last Documented On 2 10:40AM ; [facility] Z68.24 - Body mass index [BM I] 24.0-24.9, adult Medical Established Patient with Don Pino MD 11/03/2021 Last Documented On 2 10:40AM ; [facility] Cough Medical Established Patient with Karla Amber INTERNET TECHNOLOGY MANAGER 07/28/2021 Last Documented On 2 2:01PM ; [facility] Intervention and counseling on cessation of tobacco use, 3-10 minutes Discussed medication and nicotine replacement for tobacco cessation Medical Established Patient with Karla Amber INTERNET TECHNOLOGY MANAGER 07/28/2021 Last Documented On 2 2:01PM ; [facility] Nicotine dependence Medical Established Patient with Karla Amber INTERNET TECHNOLOGY MANAGER 07/28/2021 Last Documented On 2 2:01PM ; [facility] Z68.24 - Body mass index [BM I] 24.0-24.9, adult Medical Established Patient with Karla Amber INTERNET TECHNOLOGY MANAGER 07/28/2021 Last Documented On 2 2:01PM ; [facility] Assess Colon screening Medical Established Patie nt with Karla Amber INTERNET TECHNOLOGY MANAGER 05/08/2021 Last Documented On 1 10:59AM ; [facility] Diabetes Risk Test Score was four score 05/08/2021 Medical Established Patient with Karla Amber INTERNET TECHNOLOGY MANAGER 05/08/2021 Last Documented On 1 10:59AM ; [facility] Routine adult history and ph ysical (18-64 yrs) without abnormal findings Medical Established Patient with Karla Amber INTERNET TECHNOLOGY MANAGER 05/08/2021 Last Documented On 1 10:59AM ; [facility] Z68.24 - Body mass index [BM I] 24.0-24.9, adult Medical Established Patient with Karla Amber INTERNET TECHNOLOGY MANAGER 05/08/2021 Last Documented On 1 10:59AM ; [facility] Z68.24 - Body mass index [BM I] 24.0-24.9, adult Medical Established Patient with Karla Amber INTERNET TECHNOLOGY MANAGER 06/17/2020 Last Documented On 1 10:30AM ; [facility] Overweight Medical Established Patient with Karla Amber INTERNET TECHNOLOGY MANAGER 06/06/2020 Last Documented On 1 2:06PM ; [facility] Z68.25 - Body mass index [BM I] 25.0-25.9, adult Medical Established Patient with Karla Amber INTERNET TECHNOLOGY MANAGER 06/06/2020 Last Documented On 1 2:06PM ; [facility] Antiasthmatics [facility] Asthma Clinic-New with Karla Amber INTERNET TECHNOLOGY MANAGER 05/06/2020 Last Documented On 0 7:27PM ; [facility] Assessment of tobacco use [facility]-New with Karla Amber INTERNET TECHNOLOGY MANAGER 05/06/2020 Last Documented On 0 7:27PM ; [facility] Body mass index [facility]-New with Karla Amber INTERNET TECHNOLOGY MANAGER 05/06/2020 Last Documented On 0 7:27PM ; [facility] Chronic obstructive pulmonary disease S [facility] with Karla Amber INTERNET TECHNOLOGY MANAGER 05/06/2020 Last Documented On 0 7:27PM ; [facility] Overweight [facility]-New with Karla Amber INTERNET TECHNOLOGY MANAGER 05/06/2020 Last Documented On 0 7:27PM ; [facility] Z11.4 - Encounter for screen ing for human immunodeficiency virus [HIV] CPS [facility] with Karla Amber INTERNET TECHNOLOGY MANAGER 05/06/2020 Last Documented On 0 7:27PM ; [facility] Diabetes Risk Test Score was three score 03/31/2020 Medical Established Patient with Karla Amber INTERNET TECHNOLOGY MANAGER 03/31/2020 Last Documented On 0 3:22PM ; [facility] Overweight Medical Established Patient with Karla Amber INTERNET TECHNOLOGY MANAGER 03/31/2020 Last Documented On 0 3:22PM ; [facility] Z68.25 - Body mass index [BM I] 25.0-25.9, adult Medical Established Patient with Karla Clark INTERNET TECHNOLOGY MANAGER 03/31/2020 Last Documented On 0 3:22PM ; [facility] Encounter for Immunization Nurse Visit with Gary Clark INTERNET TECHNOLOGY MANAGER 03/14/2020 Last Documented On 0 5:11PM ; [facility] Body mass index Medical Established Patient with Karla Clark INTERNET TECHNOLOGY MANAGER 02/26/2020 Last Documented On 0 1:18PM ; [facility] Overweight Medical Established Patient with Karla Floresen INTERNET TECHNOLOGY MANAGER 02/26/2020 Last Documented On 0 1:18PM ; [facility] Overweight Medical Established Patient with Karla Clark INTERNET TECHNOLOGY MANAGER 07/23/2019 Last Documented On 0 2:33PM ; [facility] Z68.27 - Body mass index (BM I) 27.0-27.9, adult Medical Established Patient with Karla Clark INTERNET TECHNOLOGY MANAGER 07/23/2019 Last Documented On 0 2:33PM ; [facility] Occasional asthma CPS- [facility] Clinic- F/U with A french Clark INTERNET TECHNOLOGY MANAGER 06/05/2019 Last Documented On 0 7:04PM ; [facility] Overweight CPS- [facility]- F/U with Alta Clark INTERNET TECHNOLOGY MANAGER 06/05/2019 Last Documented On 0 7:04PM ; [facility] Z68.27 - Body mass index (BM I) 27.0-27.9 adult CPS- [facility]- F/U with Karla Clark INTERNET TECHNOLOGY MANAGER 06/05/2019 Last Documented On 0 7:04PM ; [facility] Occasional asthma CPS Med Review with Karla Flores en INTERNET TECHNOLOGY MANAGER 04/23/2019 Last Documented On 9 4:01PM ; [facility] Overweight CPS Med Review with Karla Floresen INTERNET TECHNOLOGY MANAGER 04/23/2019 Last Documented On 9 4:01PM ; [facility] Z68.27 - Body mass index (BM I) 27.0-27.9 adult CPS Med Review with Karla Clark INTERNET TECHNOLOGY MANAGER 04/23/2019 Last Documented On 9 4:01PM ; [facility] Acute pharyngitis Medical Established Patient wi th Brandy Kelley INTERNET TECHNOLOGY MANAGER 04/15/2019 Last Documented On 9 12:31PM ; [facility] Asthmatic bronchitis with ac [place] exacerbation Medical Established Patient with Brandy Warren INTERNET TECHNOLOGY MANAGER 04/15/2019 Last Documented On 9 12:31PM ; [facility] Fagerstrom Score was two Medical Established Pat ient with Brandy Warren INTERNET TECHNOLOGY MANAGER 04/15/2019 Last Documented On 9 12:31PM ; [facility] PHQ-9: total score was three 04/15/2019 Medical Established Patient with Brandy Warren INTERNET TECHNOLOGY MANAGER 04/15/2019 Last Documented On 9 12:31PM ; [facility] Body mass index Medical Established Patient with Karla Amber INTERNET TECHNOLOGY MANAGER 03/05/2019 Last Documented On 9 10:27AM ; [facility] Diabetes Risk Test Score was three score Medical Established Patient with Karla Amber INTERNET TECHNOLOGY MANAGER 03/05/2019 Last Documented On 9 10:27AM ; [facility] Overweight Medical Established Patient with Karla Amber INTERNET TECHNOLOGY MANAGER 03/05/2019 Last Documented On 9 10:27AM ; [facility] Z68.28 - Body mass index (BM I) 28.0-28.9, adult Medical Established Patient with Karla Amber INTERNET TECHNOLOGY MANAGER 12/22/2018 Last Documented On 9 10:32AM ; [facility] Assess routine adult history and physical (18 - 64 yrs) Medical Established Patient with Karla Amber INTERNET TECHNOLOGY MANAGER 11/06/2018 Last Documented On 9 2:26PM ; [facility] Overweight Medical Established Patient with Karla Amber INTERNET TECHNOLOGY MANAGER 11/06/2018 Last Documented On 9 2:26PM ; [facility] Z68.28 - Body mass index (BM I) 28.0-28.9, adult Medical Established Patient with Karla Amber INTERNET TECHNOLOGY MANAGER 11/06/2018 Last Documented On 9 2:26PM ; [facility] Assess dysphagia Medical Established Patient wit h Karla Amber INTERNET TECHNOLOGY MANAGER 09/11/2018 Last Documented On 9 10:53AM ; [facility] Assess routine adult history and physical (18 - 64 yrs) Medical Established Patient with Karla Clark INTERNET TECHNOLOGY MANAGER 09/11/2018 Last Documented On 9 10:53AM ; [facility] Assess primary insomnia with sleep apnea Medical Established Patient with Karlajulius Clark INTERNET TECHNOLOGY MANAGER 09/04/2018 Last Documented On 9 2:23PM ; [facility] Assess routine adult history and physical (18 - 64 yrs) Medical Established Patient with Karla Amber INTERNET TECHNOLOGY MANAGER 09/04/2018 Last Documented On 9 2:23PM ; [facility] Overweight Medical Established Patient with Karla Amber INTERNET TECHNOLOGY MANAGER 09/04/2018 Last Documented On 9 2:23PM ; [facility] Z68.29 - Body mass index (BM I) 29.0-29.9, adult Medical Established Patient with Karla Clark INTERNET TECHNOLOGY MANAGER 09/04/2018 Last Documented On 9 2:23PM ; [facility] Assess vaginal candidiasis Medical Estab lished Patient with Karla Clark INTERNET TECHNOLOGY MANAGER 07/31/2018 Last Documented On 9 2:12PM ; [facility] Work Phone: 1(211) 359-107812-20-2023 History general Narrative - Reported Includes: Medical History in patient's chart Description Last Updated No previous hospitalizations 05/22/2023 Last Documented On 3 1:30PM ; [facility] 1 previous live (s) 02/28/2023 Last Documented On 3 9:51AM ; [facility] Previously 1 time(s) 02/28/2023 Last Documented On 3 9:51AM ; [facility] Currently nursing 11/03/2021 Last Documented On 2 7:00PM ; [facility] status unknown for sexually tra nsmitted infection 11/03/2021 Last Documented On 2 7:00PM ; [facility] 11/03/2021 Last Documented On 2 7:00PM ; [facility] Not planning to have a baby in the next 12 months 11/03/2021 Last Documented On 2 7:00PM ; [facility] Heart Attack 03/2021 [facility] 1 07/09/2020 Last Documented On 1 10:59AM ; [facility] A recent immunization for flu 05/06/2020 Last Documented On 0 7:27PM ; [facility] Patient gave verbal consent for teleheal th 08/31/2019 Last Documented On 0 9:21AM ; [facility] History of abnormal electrocardiogram Last Documented On 9 2:12PM ; [facility] History of asthma 07/31/2018 Last Documented On 9 2:12PM ; [facility] History of cardiovascular disorder 07/31 Last Documented On 9 2:12PM ; [facility] History of respiratory disorder 07/31/19 19 Last Documented On 9 2:12PM ; [facility] History of bipolar disorder NOS 07/31/19 19 Last Documented On 9 2:12PM ; [facility] History of depression 07/31/2018 Last Documented On 9 2:12PM ; [facility] History of psychiatric disorders 019 Last Documented On 9 2:12PM ; [facility] Work Phone: 1(369) 122-325012-20-2023 History general Narrative - Reported Includes: Medical History in patient's chart Description Last Updated No previous hospitalizations 05/22/2023 Last Documented On 3 1:30PM ; [facility] 1 previous live (s) 02/28/2023 Last Documented On 3 9:51AM ; [facility] Previously 1 time(s) 02/28/2023 Last Documented On 3 9:51AM ; [facility] Currently nursing 11/03/2021 Last Documented On 2 7:00PM ; [facility] status unknown for sexually tra nsmitted infection 11/03/2021 Last Documented On 2 7:00PM ; [facility] 11/03/2021 Last Documented On 2 7:00PM ; [facility] Not planning to have a baby in the next 12 months 11/03/2021 Last Documented On 2 7:00PM ; [facility] Heart Attack 03/2021 [facility] 1 07/09/2020 Last Documented On 1 10:59AM ; [facility] A recent immunization for flu 05/06/2020 Last Documented On 0 7:27PM ; [facility] Patient gave verbal consent for teleheal th 08/31/2019 Last Documented On 0 9:21AM ; [facility] History of abnormal electrocardiogram Last Documented On 9 2:12PM ; [facility] History of asthma 07/31/2018 Last Documented On 9 2:12PM ; [facility] History of cardiovascular disorder 07/31 Last Documented On 9 2:12PM ; [facility] History of respiratory disorder 07/31/19 19 Last Documented On 9 2:12PM ; [facility] History of bipolar disorder NOS 07/31/19 19 Last Documented On 9 2:12PM ; [facility] History of depression 07/31/2018 Last Documented On 9 2:12PM ; [facility] History of psychiatric disorders 019 Last Documented On 9 2:12PM ; [facility] Work Phone: 1(913) 494-520412-20-2023 History general Narrative - Reported Includes: Medical History in patient's chart Description Last Updated No previous hospitalizations 05/22/2023 Last Documented On 3 1:30PM ; [facility] 1 previous live (s) 02/28/2023 Last Documented On 3 9:51AM ; [facility] Previously 1 time(s) 02/28/2023 Last Documented On 3 9:51AM ; [facility] Currently nursing 11/03/2021 Last Documented On 2 7:00PM ; [facility] status unknown for sexually tra nsmitted infection 11/03/2021 Last Documented On 2 7:00PM ; [facility] 11/03/2021 Last Documented On 2 7:00PM ; [facility] Not planning to have a baby in the next 12 months 11/03/2021 Last Documented On 2 7:00PM ; [facility] Heart Attack 03/2021 [facility] 1 07/09/2020 Last Documented On 1 10:59AM ; [facility] A recent immunization for flu 05/06/2020 Last Documented On 0 7:27PM ; [facility] Patient gave verbal consent for teleheal th 08/31/2019 Last Documented On 0 9:21AM ; [facility] History of abnormal electrocardiogram Last Documented On 9 2:12PM ; [facility] History of asthma 07/31/2018 Last Documented On 9 2:12PM ; [facility] History of cardiovascular disorder 07/31 Last Documented On 9 2:12PM ; [facility] History of respiratory disorder 07/31/19 19 Last Documented On 9 2:12PM ; [facility] History of bipolar disorder NOS 07/31/19 19 Last Documented On 9 2:12PM ; [facility] History of depression 07/31/2018 Last Documented On 9 2:12PM ; [facility] History of psychiatric disorders 019 Last Documented On 9 2:12PM ; [facility] Work Phone: 1(960) 811-253112-20-2023 History general Narrative - Reported Includes: Medical History in patient's chart Description Last Updated No previous hospitalizations 05/22/2023 Last Documented On 3 1:30PM ; [facility] 1 previous live (s) 02/28/2023 Last Documented On 3 9:51AM ; [facility] Previously 1 time(s) 02/28/2023 Last Documented On 3 9:51AM ; [facility] Currently nursing 11/03/2021 Last Documented On 2 7:00PM ; [facility] status unknown for sexually tra nsmitted infection 11/03/2021 Last Documented On 2 7:00PM ; [facility] 11/03/2021 Last Documented On 2 7:00PM ; [facility] Not planning to have a baby in the next 12 months 11/03/2021 Last Documented On 2 7:00PM ; [facility] Heart Attack 03/2021 [facility] 1 07/09/2020 Last Documented On 1 10:59AM ; [facility] A recent immunization for flu 05/06/2020 Last Documented On 0 7:27PM ; [facility] Patient gave verbal consent for teleheal th 08/31/2019 Last Documented On 0 9:21AM ; [facility] History of abnormal electrocardiogram Last Documented On 9 2:12PM ; [facility] History of asthma 07/31/2018 Last Documented On 9 2:12PM ; [facility] History of cardiovascular disorder 07/31 Last Documented On 9 2:12PM ; [facility] History of respiratory disorder 07/31/19 19 Last Documented On 9 2:12PM ; [facility] History of bipolar disorder NOS 07/31/19 19 Last Documented On 9 2:12PM ; [facility] History of depression 07/31/2018 Last Documented On 9 2:12PM ; [facility] History of psychiatric disorders 019 Last Documented On 9 2:12PM ; [facility] Work Phone: 1(138) 542-383812-20-2023 History general Narrative - Reported Includes: Medical History in patient's chart Description Last Updated No previous hospitalizations 05/22/2023 Last Documented On 3 1:30PM ; [facility] 1 previous live (s) 02/28/2023 Last Documented On 3 9:51AM ; [facility] Previously 1 time(s) 02/28/2023 Last Documented On 3 9:51AM ; [facility] Currently nursing 11/03/2021 Last Documented On 2 7:00PM ; [facility] status unknown for sexually tra nsmitted infection 11/03/2021 Last Documented On 2 7:00PM ; [facility] 11/03/2021 Last Documented On 2 7:00PM ; [facility] Not planning to have a baby in the next 12 months 11/03/2021 Last Documented On 2 7:00PM ; [facility] Heart Attack 03/2021 [facility] 1 07/09/2020 Last Documented On 1 10:59AM ; [facility] A recent immunization for flu 05/06/2020 Last Documented On 0 7:27PM ; [facility] Patient gave verbal consent for teleheal th 08/31/2019 Last Documented On 0 9:21AM ; [facility] History of abnormal electrocardiogram Last Documented On 9 2:12PM ; [facility] History of asthma 07/31/2018 Last Documented On 9 2:12PM ; [facility] History of cardiovascular disorder 07/31 Last Documented On 9 2:12PM ; [facility] History of respiratory disorder 07/31/19 19 Last Documented On 9 2:12PM ; [facility] History of bipolar disorder NOS 07/31/19 19 Last Documented On 9 2:12PM ; [facility] History of depression 07/31/2018 Last Documented On 9 2:12PM ; [facility] History of psychiatric disorders 019 Last Documented On 9 2:12PM ; [facility] Work Phone: 1([phone]) 390-415312-20-2023 History general Narrative - Reported Includes: Medical History in patient's chart Description Last Updated No previous hospitalizations 05/22/2023 Last Documented On 3 1:30PM ; [facility] 1 previous live (s) 02/28/2023 Last Documented On 3 9:51AM ; [facility] Previously 1 time(s) 02/28/2023 Last Documented On 3 9:51AM ; [facility] Currently nursing 11/03/2021 Last Documented On 2 7:00PM ; [facility] status unknown for sexually tra nsmitted infection 11/03/2021 Last Documented On 2 7:00PM ; [facility] 11/03/2021 Last Documented On 2 7:00PM ; [facility] Not planning to have a baby in the next 12 months 11/03/2021 Last Documented On 2 7:00PM ; [facility] Heart Attack 03/2021 [facility] 1 07/09/2020 Last Documented On 1 10:59AM ; [facility] A recent immunization for flu 05/06/2020 Last Documented On 0 7:27PM ; [facility] Patient gave verbal consent for teleheal th 08/31/2019 Last Documented On 0 9:21AM ; [facility] History of abnormal electrocardiogram Last Documented On 9 2:12PM ; [facility] History of asthma 07/31/2018 Last Documented On 9 2:12PM ; [facility] History of cardiovascular disorder 07/31 Last Documented On 9 2:12PM ; [facility] History of respiratory disorder 07/31/19 19 Last Documented On 9 2:12PM ; [facility] History of bipolar disorder NOS 07/31/19 19 Last Documented On 9 2:12PM ; [facility] History of depression 07/31/2018 Last Documented On 9 2:12PM ; [facility] History of psychiatric disorders 019 Last Documented On 9 2:12PM ; [facility] Work Phone: 1(192) 511-578012-20-2023 Progress note* Progress note Date Encounter Last Documented by 05/22/2023 Medical Established Patient Last documented on 05/22/2023; 1:30 PM, Karla Clark CNP; [facility] Active Problems & Conditions - J20.9 [...] list reviewed Presents s/p pneumonia [facility] . she having neck mass removed at [facility] in june Current Medication - Acetaminophen ER [...] EVERY DAY, 30 days, 11 refills - Attalla Carbonate 150 MG Oral Capsule Capsule, conventional [...] Bipolar disorder NOS Depression Heart Attack 03/2021 [facility]. Surgical: - General surgery right shoulder ORIF [...] BP-Sitting R138/89 mmHg BP Cuff SizeLarge Pulse Rate-Jifqlgl92 bpm Uhtzoq93 in Oejrui035 lbs 9.6 oz Body Mass Index24.8 kg/m2 Body Surface Area1.7 m2 Oxygen Jzvawafybt12 % Vital Signs: - Systolic blood pressure [...] 0 pt : Not at all. [facility]11-09-2023 NoteHNO ID: [id number] Author: Yandel Daniel MD Service: ? Author [...] details please see patient questionnaire scanned into [employer]. History: No past medical history on file. [...] refer to the patient questionnaire scanned into [employer]. Physical Exam: Vitals - There were no [...] will involve endocrinology for (more content not included)...[facility]10-26-2023 Discharge summary Author Joe rodriguez [facility] March 28, 2023 1:30pm Note Date/Time March 28, 2023 1 :30pm [facility] [address] [place] [address] Discharge Summary Signed Patient: Gail Almeida MR#: [id number] : 1955 Acct:[id number] Age/Sex: 67 / F Adm Date: 3 Loc: Room: [address] [place] [address]: Joe Davis MD Copies to: [...] disruptive behavior at her assisted living facility, [facility]. Patient was previously admitted earlierthis month due to a medication miscommunication regarding her Seroquel in which she stopped taking the medication and appeared to be in a manic episode. Cardiology reports indicate her QTc is not prolonged and Seroquel could be continued safely. She was scheduled to receive her Risperdal Consta 25 mg/2ml on03/05/23 but the MAR from [facility] did not indicate whether she received [...] Plan for next Risperdal Consta injection at nursing home facility 04/01/23 then continue Q2W. Physical exam: [...] Activity: No Activity Restriction Comment[facility] Diet: Regular Additional Instructions: Important Contact Information You can call [facility] at [phone] any time day or night if you have emergent questions or question regarding discharge instructions. If at any time you are feeling an increase inyour psychiatric symptoms, call your physician or behavioral healthcare provider. If any time you have thoughts of harming yourself or others contact one of the following: Call (available 24/12) Crisis Text Line (available 24/12) text 4HOPE to 248628 [facility] Hope Line (available 8 a.m. Midnight) call [phone] ([phone]) Next Risperidal Consta injection Due 04/02/23 Instructions: Schizoaffective Disorder (DC), [facility] Behavioral Health DC Instructions Prescriptions: New quetiapine [...] not given by assisted living facility per [facility] Acidophilus Capsule 1 cap PO DAILY fluticasone propionate 50 mcg/actuation [place],Suspension 1 spray INTRANASAL BID Rx Instructions: inhale [...] PO Q12H PRN (Reason: Congestion) Follow Up: [facility] [Other] (Long Acting Injetion Risperdal Consta Due 04/02/23) [facility] [Outside] - 04/02/23 12:15 pm (Case Management: A case management associate will call you tomorrow, 03/29/23 between 8:00am and 5:00pm. Psychiatrist: Saturday04/02/23 @ 12:15pm with Dr. Munoz) Karla Clrak, PALLIATIVE NURSE, [employer]-C [Referring] - Documented By: Joe Davis MD 3 1042 Signed By: <Electronically signed by Joe Davis MD> 03/28/23 1330 [facility] Work Phone: 1(949) 439-857110-26-2023 Hospital Discharge instructions Additional Instructions Important Contact Information You can call [facility] at [phone] any time day or night if you have emergent questions or question regarding discharge instructions. If at any time you are feeling an increase in your psychiatric symptoms, call your physician or behavioral healthcare provider. If any time you have thoughts of harming yourself or others contact one of the following: Call 98-8 (available 24/12) Crisis Text Line (available 24/12) text 4HOPE to [phone] [facility] Hope Line (available 8 a.m. Midnight) call [phone] ([phone]) Next Risperidal Consta injection Due 04/02/23[facility] Work Phone: 1(248) 848-879110-25-2023 Progress note Author Joe rodriguez [facility] March 27, 2023 11:29am Note Date/Time March 27, 2023 1 1:29am [facility] [address] [place] [address] Psychiatry Progress Note Signed Patient: Gail Almeida MR#: [id number] : 1955 Acct:[id number] Age/Sex: 67 / F Adm Date: 3 Loc: 1S Room: [address] [place] [address] Type : ADM INOo Attending Dr: Joe [...] signed by Joe Davis MD> 03/27/23 1129 [facility] Work Phone: 1(961) 158-230310-25-2023 History and physical note Author Joe rodriguez [facility] March 27, 2023 9:05am Note Date/Time March 27, 2023 9 :05am [facility] [address] [place] [address] Psychiatry H&P Signed Patient: Gail Almeida MR#: [id number] : 1955 Acct:[id number] Age/Sex: 67 / F Adm Date: 3 Loc: Room: [address] [place] [address] Type: ADM INOo Attending Dr: Joe Davis [...] homicidality and suicidality Insight: fair Judgment: fair [facility] Medical History (Updated 03/26/23 @ 18:06 by [...] oral powder 17 g PO DAILY PRN Amftercphxlw16/10/23 [History Confirmed 03/26/23] quetiapine 400 mg tablet,extended [...] 03/26/23] dextromethorphan-guaifenesin 30 mg-600 mg tablet extended tqgurif33 hr (Mucus DM) 1 tab PO Q12H [...] signed by Joe Davis MD> 03/27/23 0905 [facility] Work Phone: 1(182) 202-491510-24-2023 Consult note Author Jose Huang [facility] March 26, 2023 9:29pm Note Date/Time March 26, 2023 5 :27pm [facility] [address] [place] [address] Hospitalist Consult Note Signed Patient: Gail Almeida MR#: [id number] : 1955 Acct:[id number] Age/Sex: 67 / F Adm Date: 3 Loc: Room: [address] [place] [address] Type: ADM IN Attending Dr: Joe Davis [...] facility with mental health concerns. Transferred to [facility] for inpatient psychiatric admission. Hospitalist team [...] negative unless noted below or in HPI [facility] Medical History (Updated 03/26/23 @ 18:06 by [...] oral powder 17 g PO DAILY PRN Maakoribxqon59/10/23 [History Confirmed 03/26/23] quetiapine 400 mg tablet,extended [...] spray 03/26/23 09:00 03/26/23 08:22 Fluticasone Propionate [place] 120 [place]/16 Gm Bottle INTRANASAL 03/25/24 08:59 1 spray [...] 03/25/24 08:59 1 cap DAILY JOANNA Administration Attalla Carbonate 150 mg 03/26/23 09:00 03/26/23 08:21 Attalla Carbonate 300 Mg Tablet PO 03/25/24 08:59 [...] 200 Mg Tab.Er.24h PO 03/25/24 21:59 [facility]HS [facility] Sterile Water 2.1 ml 03/26/23 01:03 Water For Injection,Sterile 10 Ml Vial INJECTION 03/25/24 01:02 PRN PRN To dilute OLANZapine (ZyPREXA) Topiramate 25 mg 03/26/23 22:00 Topiramate 25 Mg Tablet PO 03/25/24 21:59 QHS [facility] Exam Physical Exam Vital Signs: [...] Results - last 72 hr 03/26/23 07:30: Attalla 0.20 L 03/26/23 07:30: Triglycerides 86, Cholesterol [...] APRN 03/04 Signed By: <Electronically signed by RODNYE Pryor> 03/26/231828 <Electronically signed by Jose Huang DO> 03/26/232128 [facility] Work Phone: 1(295) 621-720710-24-2023 Consult note Author Mariana Pryor [facility] March 26, 2023 5:27pm Note Date/Time March 26, 2023 3 :48pm [facility] [address] [place] [address] Hospitalist Consult Note Signed with Addenda Patient: Gail Almeida MR#: [id number] : 1955 Acct:[id number] Age/Sex: 67 / F Adm Date: 3 Loc: Room: [address] [place] [address] Type: ADM IN Attending Dr: Joe Davis MD Copies to: NON STAFF MD Mariana Vides APRN~ ADDENDUM1 disregard signed without completion Addendum Documented By: RODNEY Pryor 03/26/231725 Addendum Signed By: <Electronically signed by RODNEY Pryor> 03/26/231725 HPI DATE OF CONSULTATION: 03/26/23 REQUESTING PROVIDER: Joe Davis [facility] Medical History (Updated 03/26/23 @ 01:23 by [...] oral powder 17 g PO DAILY PRN Enixxerkiiyl79/10/23 [History Confirmed 03/26/23] quetiapine 400 mg tablet,extended [...] 03/26/23] dextromethorphan-guaifenesin 30 mg-600 mg tablet extended juslbkd70 hr (Mucus DM) 1 tab PO Q12H [...] spray 03/26/23 09:00 03/26/23 08:22 Fluticasone Propionate [place] 120 [place]/16 Gm Bottle INTRANASAL 03/25/24 08:59 1 spray [...] 03/25/24 08:59 1 cap DAILY JOANNA Administration Attalla Carbonate 150 mg 03/26/23 09:00 03/26/23 08:21 Attalla Carbonate 300 Mg Tablet PO 03/25/24 08:59 [...] Results - last 72 hr 03/26/23 07:30: Attalla 0.20 L 03/26/23 07:30: Triglycerides 86, Cholesterol 165, LDL Cholesterol, Calc 95, VLDL Cholesterol 17, HDL Cholesterol 53, Cholesterol/HDL Ratio 3.1, 25-OH Vitamin D Total 34.5, Free T4 0.74, TSH 3rd Generation 0.42 L Documented By: Mariana Pryor APRN 03/04 09/23 1548 Signed By: <Electronically signed by RODNEY Pryor> 03/26/23 1725 [facility] Work Phone: 1(818) 512-846110-19-2023 Progress note* Progress note Date Encounter Last Documented by 03/21/2023 Chart Update Last documented on 03/21/2023; 11:27 AM, Karla Clark CNP; [facility] Active Problems & Conditions - [...] arm pain, 5 days, 0 refills - [place] Carbonate 150 MG Oral Capsule one capsule [...] Bipolar disorder NOS Depression Heart Attack 03/2021 [facility]. Surgical: - General surgery right shoulder ORIF [...] Advance Directives - Advance Care Planning [facility]10-19-2023 Instructions Includes: Instructions for all patient encounters Instructions to patient Intervention and counseling on cessation of tobacco use, 3-10 minutes Discussed medication and nicotine replacement for tobacco cessation Last Documented On 3 8:54AM ; [facility] Intervention and counseling on cessation of tobacco use, 3-10 minutes Discussed medication and nicotine replacement for tobacco cessation Last Documented On 2 1:56PM ; [facility] Intervention and counseling on cessation of tobacco use, 3-10 minutes Last Documented On 0 2:07PM ; [facility] Return to the clinic if cond ition worsens or new symptoms arise Last Documented On 9 1:59PM ; [facility] Intervention and counseling on cessation of tobacco use, 3-10 minutes Last Documented On 9 10:39AM ; [facility] Education and Decision Aids were provided during visit for: Discussed nutritional needs teach healthy choices including fruits and vegetables Last Documented On 3 9:37AM ; [facility] Patient education about a pr oper diet Last Documented On 3 9:37AM ; [facility] Discussed concerns about exe rcise : promote physical activity Last Documented On 3 9:37AM ; [facility] Not requesting contraception Last Documented On 3 9:37AM ; [facility] Discussed nutritional needs teach healthy choices including fruits and vegetables Last Documented On 3 9:20AM ; [facility] Patient education about a pr oper diet Last Documented On 3 9:20AM ; [facility] Discussed concerns about exe rcise : promote physical activity Last Documented On 3 9:20AM ; [facility] Discussed nutritional needs teach healthy choices including fruits and vegetables Last Documented On 3 2:02PM ; [facility] Patient education about a pr oper diet Last Documented On 3 2:02PM ; [facility] Discussed concerns about exe rcise : promote physical activity Last Documented On 3 2:02PM ; [facility] Discussed nutritional needs teach healthy choices including fruits and vegetables Last Documented On 3 8:32AM ; [facility] Patient education about a pr oper diet Last Documented On 3 8:32AM ; [facility] Discussed concerns about exe rcise : promote physical activity Last Documented On 3 8:32AM ; [facility] Discussed nutritional needs teach healthy choices including fruits and vegetables Last Documented On 3 11:28AM ; [facility] Patient education about a pr oper diet Last Documented On 3 11:28AM ; [facility] Discussed concerns about exe rcise : promote physical activity Last Documented On 3 11:28AM ; [facility] Discussed nutritional needs teach healthy choices including fruits and vegetables Last Documented On 2 2:01PM ; [facility] Patient education about a pr oper diet Last Documented On 2 2:01PM ; [facility] Discussed concerns about exe rcise : promote physical activity Last Documented On 2 2:01PM ; [facility] Discussed nutritional needs teach healthy choices including fruits and vegetables Last Documented On 2 2:11PM ; [facility] Patient education about a pr oper diet Last Documented On 2 2:11PM ; [facility] Discussed concerns about exe rcise : promote physical activity Last Documented On 2 2:11PM ; [facility] Discussed current self-care methods/coping skills. ~Validated and normalized pt's feelings while assisting patient process recent events. ~Discussed ongoing counseling. ~Discussed lifestyle changes to address chronic illness. ~Supported patient's personal health goals ~wordfinds. walk, read, eat, enjoy my best friesnd Last Documented On 2 5:54PM ; [facility] Discussed nutritional needs teach healthy choices including fruits and vegetables Last Documented On 2 10:04AM ; [facility] Patient education about a pr oper diet Last Documented On 2 10:04AM ; [facility] Discussed concerns about exe rcise : promote physical activity Last Documented On 2 10:04AM ; [facility] Discussed nutritional needs teach healthy choices including fruits and vegetables Last Documented On 2 1:25PM ; [facility] Patient education about a pr oper diet Last Documented On 2 1:25PM ; [facility] Discussed concerns about exe rcise : promote physical activity Last Documented On 2 1:25PM ; [facility] Discussed nutritional needs teach healthy choices including fruits and vegetables Last Documented On 1 10:08AM ; [facility] Patient education about a pr oper diet Last Documented On 1 10:08AM ; [facility] Discussed concerns about exe rcise : promote physical activity Last Documented On 1 10:08AM ; [facility] Discussed nutritional needs teach healthy choices including fruits and vegetables Last Documented On 1 1:12PM ; [facility] Patient education about a pr oper diet Last Documented On 1 1:12PM ; [facility] Patient education about a pr oper diet Last Documented On 1 1:30PM ; [facility] Patient education about meal planning Last Documented On 1 1:30PM ; [facility] Education about changing eat ing habits Last Documented On 1 1:30PM ; [facility] Patient education about high fiber diet Last Documented On 1 1:30PM ; [facility] Patient education about low fat diet Last Documented On 1 1:30PM ; [facility] Patient education about low cholesterol diet Last Documented On 1 1:30PM ; [facility] Patient education about low carbohydrate diet Last Documented On 1 1:30PM ; [facility] Patient education about high protein diet Last Documented On 1 1:30PM ; [facility] Discussed concerns about exe rcise : promote physical activity Last Documented On 1 1:12PM ; [facility] Education/counseling conduct ed by pharmacist Last Documented On 0 1:39PM ; [facility] Vaccination counseling Last Documented On 0 1:39PM ; [facility] Discussed concerns about exe rcise : promote physical activity Last Documented On 0 2:16PM ; [facility] Patient goals decrease short ness of breath episodes Last Documented On 0 2:11PM ; [facility] Patient states that she uses her [...] recently Last Documented On 0 2:24PM ; [facility] Patient education about a pr oper diet Last Documented On 0 2:54PM ; [facility] Patient education about meal planning Last Documented On 0 2:54PM ; [facility] Education about changing eat ing habits Last Documented On 0 2:54PM ; [facility] Patient education about high fiber diet Last Documented On 0 2:54PM ; [facility] Patient education about low fat diet Last Documented On 0 2:54PM ; [facility] Patient education about low cholesterol diet Last Documented On 0 2:54PM ; [facility] Patient education about low carbohydrate diet Last Documented On 0 2:54PM ; [facility] Patient education about high protein diet Last Documented On 0 2:54PM ; [facility] Discussed nutritional needs teach healthy choices including fruits and vegetables Last Documented On 0 11:11AM ; [facility] Patient education about a pr oper diet Last Documented On 0 11:11AM ; [facility] Patient education about a pr oper diet Last Documented On 0 11:28AM ; [facility] Patient education about meal planning Last Documented On 0 11:28AM ; [facility] Education about changing eat ing habits Last Documented On 0 11:28AM ; [facility] Patient education about high fiber diet Last Documented On 0 11:28AM ; [facility] Patient education about low fat diet Last Documented On 0 11:28AM ; [facility] Patient education about low cholesterol diet Last Documented On 0 11:28AM ; [facility] Patient education about low carbohydrate diet Last Documented On 0 11:28AM ; [facility] Patient education about high protein diet Last Documented On 0 11:28AM ; [facility] Discussed concerns about exe rcise : promote physical activity Last Documented On 0 11:11AM ; [facility] Education/counseling conduct ed by pharmacist Last Documented On 0 1:41PM ; [facility] Patient states that she lonnie gonzalez [...] own Last Documented On 0 2:08PM ; [facility] Education/counseling conduct ed by pharmacist Last Documented On 9 1:12PM ; [facility] Patient states that she lonnie gonzalez has issues with her inhaler with the spacer. Patient did not bring in inhaler or spacer. Patient was told to bring in inhalers at next scheduled visit for pharmacist to assess inhalation technique. Patient is agreeable Last Documented On 9 1:13PM ; [facility] Patient goals Start using ch deon to help with inhaling dulera Last Documented On 9 2:40PM ; [facility] Patient states that she is g [...] vaccines Last Documented On 9 2:51PM ; [facility] Discussed nutritional needs teach healthy choices including fruits and vegetables Last Documented On 9 9:29AM ; [facility] Patient education about a pr oper diet Last Documented On 9 9:29AM ; [facility] Discussed concerns about exe rcise : promote physical activity Last Documented On 9 9:29AM ; [facility] Work Phone: 1(110) 598-152710-13-2023 Hospital Discharge instructions Additional Instructions Important Contact Information You can call [facility] at [phone] any time day or night if you have emergent questions or question regarding discharge instructions. If at any time you are feeling an increase in your psychiatric symptoms, call your physician or behavioral healthcare provider. If any time you have thoughts of harming yourself or others contact one of the following: Call 88 (available 24/12) Crisis Text Line (available 24/12) text 4HOPE to 980111 [facility] Hope Line (available 8 a.m. Midnight) call [phone] ([phone]) Regular Diet No Activity Restrictions Risperdal Consta Long Acting Injection Due 03/21/23[facility] Work Phone: [phone] 215-269910-12-2023 Consult note Author Maddy Moss [facility] March 14, 2023 3:16pm Note Date/Time March 14, 2023 3 :14pm [facility] [address] [place] [address] Cardiology Consult Note Signed Patient: Gail Almeida MR#: [id number] : 1955 Acct:[id number] Age/Sex: 67 / F Adm Date: 3 Loc: Room: [address] [place] [address] Type: ADM IN Attending Dr: Joe Davis [...] negative unless noted below or in HPI [facility] Medical History (Updated 03/14/23 @ 15:12 by [...] oral powder 17 g PO DAILY PRN Fddsaokiqlyt35/10/23 [History Confirmed 03/12/23] Exam Physical Exam Vital [...] x10E3/uL Lymph # (Auto) 1.9 (1.00-4.8) x10E3/uL Mccracken # (Auto) 0.6 (0.0-0.8) x10E3/uL Eos # [...] <Electronically signed by Maddy Moss MD> 03/14/23 9126 [facility] Work Phone: [phone] 892-549910-12-2023 Progress note Author Joe rodriguez [facility] March 14, 2023 6:33am Note Date/Time March 14, 2023 6 :33am [facility] [address] [place] [address] Psychiatry Progress Note Signed Patient: Gail Almeida MR#: [id number] : 1955 Acct:[id number] Age/Sex: 67 / F Adm Date: 3 Loc: Room: [address] [place] [address] Type : ADM IN Attending Dr: Joe [...] status. Documented By: Joe Davis MD 3 [id number] Signed By: <Electronically signed by Joe Davis MD> 03/14/23 0633 [facility] Work Phone: 1([phone]) 944-672510-11-2023 Progress note Author Joe rodriguez [facility] March 13, 2023 1:14pm Note Date/Time March 13, 2023 7 :06am [facility] [address] [place] [address] Psychiatry Progress Note Signed Patient: Gail Almeida MR#: [id number] : 1955 Acct:[id number] Age/Sex: 67 / F Adm Date: 3 Loc: Room: [address] [place] [address] Type : ADM IN Attending Dr: Joe [...] <Electronically signed by Joe Davis MD> 03/13/23 1319 [facility] Work Phone: [phone] 531-740610-10-2023 History and physical note Author Joe rodriguez [facility] March 12, 2023 11:25am Note Date/Time March 12, 2023 1 0:29am [facility] [address] [place] [address] Psychiatry H&P Signed Patient: Gail Almeida MR#: [id number] : 1955 Acct:[id number] Age/Sex: 67 / F Adm Date: 3 Loc: Room: [address] [place] [address] Type: ADM IN Attending Dr: Joe Davis [...] signs of shelby. She was sent to [facility] for medical clearance and then brought to [facility]. The patient stated that her friend [...] Past hospitalizations: Hospitalized 8 years ago at [facility] Past suicide attempts: Denies Family psych history: Mother with bipolar disorder. Daughter with bipolar disorder. Previous medications: Seroquel, Risperdal IM, amantadine, Cogentin, lithium Alcohol and drug use: Denies alcohol or illicit drug use. Reports smoking 3 to 4 cigarettes/day. Living: Alone at [facility] Employment: Unemployed. Plans to retire [...] equal bilaterally. CN XII: Tongue protrusion midline [facility] Medical History (Updated 03/12/23 @ 11:22 by [...] oral powder 17 g PO DAILY PRN Lqptqjkxsyex83/10/23 [History Confirmed 03/12/23] Exam Physical Exam Vital [...] <Electronically signed by Joe Davis MD> 03/12/23 [facility] Work Phone: 1(635) 528-564709-28-2023 History general Narrative - Reported Includes: Medical History in patient's chart Description Last Updated 1 previous live (s) 02/28/2023 Last Documented On 3 9:51AM ; [facility] Previously 1 time(s) 02/28/2023 Last Documented On 3 9:51AM ; [facility] Previous hospitalizations 09/18/2022 Last Documented On 3 2:33PM ; [facility] Currently nursing 11/03/2021 Last Documented On 2 7:00PM ; [facility] status unknown for sexually tra nsmitted infection 11/03/2021 Last Documented On 2 7:00PM ; [facility] 11/03/2021 Last Documented On 2 7:00PM ; [facility] Not planning to have a baby in the next 12 months 11/03/2021 Last Documented On 2 7:00PM ; [facility] Heart Attack 03/2021 [facility] 1 07/09/2020 Last Documented On 1 10:59AM ; [facility] A recent immunization for flu 05/06/2020 Last Documented On 0 7:27PM ; [facility] Patient gave verbal consent for teleheal th 08/31/2019 Last Documented On 0 9:21AM ; [facility] History of abnormal electrocardiogram Last Documented On 9 2:12PM ; [facility] History of asthma 07/31/2018 Last Documented On 9 2:12PM ; [facility] History of cardiovascular disorder 07/31 Last Documented On 9 2:12PM ; [facility] History of respiratory disorder 07/31/19 19 Last Documented On 9 2:12PM ; [facility] History of bipolar disorder NOS 07/31/19 19 Last Documented On 9 2:12PM ; [facility] History of depression 07/31/2018 Last Documented On 9 2:12PM ; [facility] History of psychiatric disorders 019 Last Documented On 9 2:12PM ; [facility] Work Phone: 1([phone]) 516-214909-28-2023 Progress note* Progress note Date Encounter Last Documented by 02/28/2023 Medical Established Patient Last documented on 02/28/2023; 9:51 AM, Aaron Whitaker CNP; [facility] Active Problems & Conditions - J20.9 [...] arm pain, 5 days, 0 refills - [place] Carbonate 150 MG Oral Capsule one capsule [...] Bipolar disorder NOS Depression Heart Attack 03/2021 [facility]. Surgical: - General surgery right shoulder ORIF [...] BP-Sitting L111/76 mmHg BP Cuff SizeRegular Pulse Rate-Sgdrcxa54 bpm Xaityq45 in Rqekfs347 lbs 12.8 oz Body Mass Index24 kg/m2 Body Surface Area1.7 m2 Oxygen Wtqomwiuya28 % Vital Signs: - Systolic blood pressure [...] breast Outside Diagn Tests/Imaging: Mammogram - Screening ([id number]) EndCited StartCited- Other Topiramate 25 MG tablet [...] 0 pt : Not at all. [facility]07-12-2023 Evaluation note* Encounter Date Diagnosis [...] Other specified postprocedural states (ICD-10 - Z98.890) [employer] Other 06-19-2023 Progress note* Progress note Date Encounter Last Documented by 11/19/2022 Medical Established Patient Last documented on 11/19/2022; 10:15 AM, Karla Clark INTERNET TECHNOLOGY MANAGER; [facility] Active Problems & Conditions - [...] EVERY DAY, 30 days, 11 refills - [place] Carbonate 300MG Oral Tablet 300 MG take [...] Bipolar disorder NOS Depression Heart Attack 03/2021 [facility]. Surgical: - General surgery right shoulder ORIF [...] BP-Sitting L133/60 mmHg BP Cuff SizeRegular Pulse Rate-Yealloh28 bpm Temp-Yhnqqxvz64.6 F Fgsbvh54 in Qfpldj580 lbs 6.4 oz Body Mass Index23.6 kg/m2 Body Surface Area1.7 m2 Oxygen Boltjzmvwn68 % General Appearance: - Awake. - Alert. [...] + 0 pt : Not at all. [facility]06-19-2023 Instructions Includes: Instructions for all patient encounters Instructions to patient Intervention and counseling on cessation of tobacco use, 3-10 minutes Discussed medication and nicotine replacement for tobacco cessation Last Documented On 3 8:54AM ; [facility] Intervention and counseling on cessation of tobacco use, 3-10 minutes Discussed medication and nicotine replacement for tobacco cessation Last Documented On 2 1:56PM ; [facility] Intervention and counseling on cessation of tobacco use, 3-10 minutes Last Documented On 0 2:07PM ; [facility] Return to the clinic if cond ition worsens or new symptoms arise Last Documented On 9 1:59PM ; [facility] Intervention and counseling on cessation of tobacco use, 3-10 minutes Last Documented On 9 10:39AM ; [facility] Education and Decision Aids were provided during visit for: Discussed nutritional needs teach healthy choices including fruits and vegetables Last Documented On 3 9:20AM ; [facility] Patient education about a pr oper diet Last Documented On 3 9:20AM ; [facility] Discussed concerns about exe rcise : promote physical activity Last Documented On 3 9:20AM ; [facility] Discussed nutritional needs teach healthy choices including fruits and vegetables Last Documented On 3 2:02PM ; [facility] Patient education about a pr oper diet Last Documented On 3 2:02PM ; [facility] Discussed concerns about exe rcise : promote physical activity Last Documented On 3 2:02PM ; [facility] Discussed nutritional needs teach healthy choices including fruits and vegetables Last Documented On 3 8:32AM ; [facility] Patient education about a pr oper diet Last Documented On 3 8:32AM ; [facility] Discussed concerns about exe rcise : promote physical activity Last Documented On 3 8:32AM ; [facility] Discussed nutritional needs teach healthy choices including fruits and vegetables Last Documented On 3 11:28AM ; [facility] Patient education about a pr oper diet Last Documented On 3 11:28AM ; [facility] Discussed concerns about exe rcise : promote physical activity Last Documented On 3 11:28AM ; [facility] Discussed nutritional needs teach healthy choices including fruits and vegetables Last Documented On 2 2:01PM ; [facility] Patient education about a pr oper diet Last Documented On 2 2:01PM ; [facility] Discussed concerns about exe rcise : promote physical activity Last Documented On 2 2:01PM ; [facility] Discussed nutritional needs teach healthy choices including fruits and vegetables Last Documented On 2 2:11PM ; [facility] Patient education about a pr oper diet Last Documented On 2 2:11PM ; [facility] Discussed concerns about exe rcise : promote physical activity Last Documented On 2 2:11PM ; [facility] Discussed current self-care methods/coping skills. ~Validated and normalized pt's feelings while assisting patient process recent events. ~Discussed ongoing counseling. ~Discussed lifestyle changes to address chronic illness. ~Supported patient's personal health goals ~wordfinds. walk, read, eat, enjoy my best friesnd Last Documented On 2 5:54PM ; [facility] Discussed nutritional needs teach healthy choices including fruits and vegetables Last Documented On 2 10:04AM ; [facility] Patient education about a pr oper diet Last Documented On 2 10:04AM ; [facility] Discussed concerns about exe rcise : promote physical activity Last Documented On 2 10:04AM ; [facility] Discussed nutritional needs teach healthy choices including fruits and vegetables Last Documented On 2 1:25PM ; [facility] Patient education about a pr oper diet Last Documented On 2 1:25PM ; [facility] Discussed concerns about exe rcise : promote physical activity Last Documented On 2 1:25PM ; [facility] Discussed nutritional needs teach healthy choices including fruits and vegetables Last Documented On 1 10:08AM ; [facility] Patient education about a pr oper diet Last Documented On 1 10:08AM ; [facility] Discussed concerns about exe rcise : promote physical activity Last Documented On 1 10:08AM ; [facility] Discussed nutritional needs teach healthy choices including fruits and vegetables Last Documented On 1 1:12PM ; [facility] Patient education about a pr oper diet Last Documented On 1 1:12PM ; [facility] Patient education about a pr oper diet Last Documented On 1 1:30PM ; [facility] Patient education about meal planning Last Documented On 1 1:30PM ; [facility] Education about changing eat ing habits Last Documented On 1 1:30PM ; [facility] Patient education about high fiber diet Last Documented On 1 1:30PM ; [facility] Patient education about low fat diet Last Documented On 1 1:30PM ; [facility] Patient education about low cholesterol diet Last Documented On 1 1:30PM ; [facility] Patient education about low carbohydrate diet Last Documented On 1 1:30PM ; [facility] Patient education about high protein diet Last Documented On 1 1:30PM ; [facility] Discussed concerns about exe rcise : promote physical activity Last Documented On 1 1:12PM ; [facility] Education/counseling conduct ed by pharmacist Last Documented On 0 1:39PM ; [facility] Vaccination counseling Last Documented On 0 1:39PM ; [facility] Discussed concerns about exe rcise : promote physical activity Last Documented On 0 2:16PM ; [facility] Patient goals decrease short ness of breath episodes Last Documented On 0 2:11PM ; [facility] Patient states that she uses her [...] recently Last Documented On 0 2:24PM ; [facility] Patient education about a pr oper diet Last Documented On 0 2:54PM ; [facility] Patient education about meal planning Last Documented On 0 2:54PM ; [facility] Education about changing eat ing habits Last Documented On 0 2:54PM ; [facility] Patient education about high fiber diet Last Documented On 0 2:54PM ; [facility] Patient education about low fat diet Last Documented On 0 2:54PM ; [facility] Patient education about low cholesterol diet Last Documented On 0 2:54PM ; [facility] Patient education about low carbohydrate diet Last Documented On 0 2:54PM ; [facility] Patient education about high protein diet Last Documented On 0 2:54PM ; [facility] Discussed nutritional needs teach healthy choices including fruits and vegetables Last Documented On 0 11:11AM ; [facility] Patient education about a pr oper diet Last Documented On 0 11:11AM ; [facility] Patient education about a pr oper diet Last Documented On 0 11:28AM ; [facility] Patient education about meal planning Last Documented On 0 11:28AM ; [facility] Education about changing eat ing habits Last Documented On 0 11:28AM ; [facility] Patient education about high fiber diet Last Documented On 0 11:28AM ; [facility] Patient education about low fat diet Last Documented On 0 11:28AM ; [facility] Patient education about low cholesterol diet Last Documented On 0 11:28AM ; [facility] Patient education about low carbohydrate diet Last Documented On 0 11:28AM ; [facility] Patient education about high protein diet Last Documented On 0 11:28AM ; [facility] Discussed concerns about exe rcise : promote physical activity Last Documented On 0 11:11AM ; [facility] Education/counseling conduct ed by pharmacist Last Documented On 0 1:41PM ; [facility] Patient states that she lonnie gonzalez [...] own Last Documented On 0 2:08PM ; [facility] Education/counseling conduct ed by pharmacist Last Documented On 9 1:12PM ; [facility] Patient states that she lonnie gonzalez has issues with her inhaler with the spacer. Patient did not bring in inhaler or spacer. Patient was told to bring in inhalers at next scheduled visit for pharmacist to assess inhalation technique. Patient is agreeable Last Documented On 9 1:13PM ; [facility] Patient goals Start using ch deon to help with inhaling dulera Last Documented On 9 2:40PM ; [facility] Patient states that she is g [...] vaccines Last Documented On 9 2:51PM ; [facility] Discussed nutritional needs teach healthy choices including fruits and vegetables Last Documented On 9 9:29AM ; [facility] Patient education about a pr oper diet Last Documented On 9 9:29AM ; [facility] Discussed concerns about exe rcise : promote physical activity Last Documented On 9 9:29AM ; [facility] Work Phone: [phone]) 561-795405-31-2023 Evaluation note* Encounter Date Diagnosis Assessment Notes [...] Other specified postprocedural states (ICD-10 - Z98.890) [facility] Other 05-05-2023 Evaluation note* Encounter Date Diagnosis Assessment Notes Treatment Notes Treatment Clinical Notes October, Other closed displaced fracture of proximal end of right humerus with routine healing, subsequent encounter (ICD-10 - S42.291D) [facility] Other 05-03-2023 Evaluation note* Encounter Date Diagnosis [...] as documented in the electronic medical record. [facility] Other 04-21-2023 Progress note* Progress note Date Encounter Last Documented by 09/21/2022 Chart Update Last documented on 09/21/2022; 4:58 PM, Karla Clark CNP; [facility] Active Problems & Conditions - J45.909 [...] 1 actuation by mouth twice daily (replaces [employer] r/t insurance), 30 days, 11 refills - [...] Oral Tablet 5 days, 0 refills - Attalla Carbonate 300MG Oral Tablet 300 MG take [...] Bipolar disorder NOS Depression Heart Attack 03/2021 [facility]. Surgical: - General surgery right shoulder ORIF [...] Vaccine Advance Directives - Advance Care Planning [facility]04-18-2023 History general Narrative - Reported Includes: Medical History in patient's chart Description Last Updated Previous hospitalizations 09/18/2022 Last Documented On 3 2:33PM ; [facility] Currently nursing 11/03/2021 Last Documented On 2 7:00PM ; [facility] status unknown for sexually tra nsmitted infection 11/03/2021 Last Documented On 2 7:00PM ; [facility] 11/03/2021 Last Documented On 2 7:00PM ; [facility] Not planning to have a baby in the next 12 months 11/03/2021 Last Documented On 2 7:00PM ; [facility] Heart Attack 03/2021 [facility] 1 07/09/2020 Last Documented On 1 10:59AM ; [facility] A recent immunization for flu 05/06/2020 Last Documented On 0 7:27PM ; [facility] Patient gave verbal consent for teleheal th 08/31/2019 Last Documented On 0 9:21AM ; [facility] History of abnormal electrocardiogram Last Documented On 9 2:12PM ; [facility] History of asthma 07/31/2018 Last Documented On 9 2:12PM ; [facility] History of cardiovascular disorder 07/31 Last Documented On 9 2:12PM ; [facility] History of respiratory disorder 07/31/19 19 Last Documented On 9 2:12PM ; [facility] History of bipolar disorder NOS 07/31/19 19 Last Documented On 9 2:12PM ; [facility] History of depression 07/31/2018 Last Documented On 9 2:12PM ; [facility] History of psychiatric disorders 019 Last Documented On 9 2:12PM ; [facility] Work Phone: [phone]) 986-245304-18-2023 Progress note* Progress note Date Encounter Last Documented by 09/18/2022 Medical Established Patient Last documented on 09/18/2022; 2:33 PM, Karla Clark INTERNET TECHNOLOGY MANAGER; [facility] Active Problems & Conditions - [...] Patient had surgery on rotator cuff at [facility]. Referred Here Referred by emergency room. [...] Oral Tablet 5 days, 0 refills - Attalla Carbonate 300MG Oral Tablet 300 MG take [...] Bipolar disorder NOS Depression Heart Attack 03/2021 [facility]. Surgical: - Hysterectomy Social History Environmental Exposure: [...] BP-Sitting L142/74 mmHg BP Cuff SizeRegular Pulse Rate-Vkqbwdp18 bpm Temp-Tfbmisfc77.6 F Zhqsrh40 in Tqiiqc556 lbs 12.8 oz Body Mass Index24.9 kg/m2 Body Surface Area1.7 m2 Oxygen Bqsjsvfymw42 % General Appearance: - Awake. - Alert. [...] Tobacco Cessation Intervention and Counseling satisfied 09/18/2022. [facility]04-10-2023 Evaluation note* Encounter Date Diagnosis Assessment [...] - S42.291A) Gail is here today for [facility] follow-up of right shoulder fracture dislocation. Prior medical notes from [facility] have been reviewed today. Images have [...] poor healing. I have advised against the exterminator use of narcotic pain medication. I have advised to follow all post-operative instructions in order to obtain the best outcome. Informed consent has been verbally affirmed and signed as indicated. Plan for ORIF of right greater tuberosity. Beachchair positioning. Possible proximal humerus plate. Sep, Other See orders for this visit as documented in the electronic medical record. [facility] Other 04-06-2023 NoteEXAM: XR SHOULDER RT 1 V HISTORY: Pain ; post reduction evaluation COMPARISON: Right shoulder x-rays from same date TECHNIQUE: FINDINGS: The humeral head remains inferior to the glenoid. Stable displaced fracture of the greater tuberosity. IMPRESSION: 1. 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 Electronically authenticated by: HÉCTOR HO Date: 2022-09-06 14:58[facility]04-06-2023 NotePROCEDURE: XR HUMERUS RT MIN 2 V, [...] Electronically authenticated by: HÉCTOR HO Date: 2022-09-06 11:48[facility]04-06-2023 NotePROCEDURE: XR HUMERUS RT MIN 2 V, [...] Electronically authenticated by: HÉCTOR HO Date: 2022-09-06 11:48[facility]03-27-2023 Progress note* Progress note Date Encounter Last [...] EVERY DAY, 30 days, 11 refills - Attalla Carbonate 300MG Oral Tablet 300 MG take [...] total score: 0 pts (Scale: 0-6) PHQ2. [facility]03-27-2023 Progress note* Progress note Date Encounter Last Documented by 08/27/2022 Medical Established Patient Last documented on 08/27/2022; 9:20 AM, Karla Clark CNP; [facility] Active Problems & Conditions - J45.909 [...] EVERY DAY, 30 days, 11 refills - Attalla Carbonate 300MG Oral Tablet 300 MG take [...] Bipolar disorder NOS Depression Heart Attack 03/2021 [facility]. Surgical: - Hysterectomy Social History Environmental Exposure: [...] BP-Sitting L115/73 mmHg BP Cuff SizeRegular Pulse Rate-Qqwuxyu75 bpm Temp-Cggyezfm96 F Gmkbby12 in Beimze755 lbs 9.6 oz Body Mass Index24.6 kg/m2 Body Surface Area1.7 m2 Oxygen Buksitwupc00 % General Appearance: - Appears distressed. - [...] Tobacco Cessation Intervention and Counseling satisfied 08/27/2022. [facility]03-27-2023 Instructions Includes: Instructions for all patient encounters Instructions to patient Intervention and counseling on cessation of tobacco use, 3-10 minutes Discussed medication and nicotine replacement for tobacco cessation Last Documented On 3 8:54AM ; [facility] Intervention and counseling on cessation of tobacco use, 3-10 minutes Discussed medication and nicotine replacement for tobacco cessation Last Documented On 2 1:56PM ; [facility] Intervention and counseling on cessation of tobacco use, 3-10 minutes Last Documented On 0 2:07PM ; [facility] Return to the clinic if cond ition worsens or new symptoms arise Last Documented On 9 1:59PM ; [facility] Intervention and counseling on cessation of tobacco use, 3-10 minutes Last Documented On 9 10:39AM ; [facility] Education and Decision Aids were provided during visit for: Discussed nutritional needs teach healthy choices including fruits and vegetables Last Documented On 3 9:37AM ; [facility] Patient education about a pr oper diet Last Documented On 3 9:37AM ; [facility] Discussed concerns about exe rcise : promote physical activity Last Documented On 3 9:37AM ; [facility] Not requesting contraception Last Documented On 3 9:37AM ; [facility] Discussed nutritional needs teach healthy choices including fruits and vegetables Last Documented On 3 9:20AM ; [facility] Patient education about a pr oper diet Last Documented On 3 9:20AM ; [facility] Discussed concerns about exe rcise : promote physical activity Last Documented On 3 9:20AM ; [facility] Discussed nutritional needs teach healthy choices including fruits and vegetables Last Documented On 3 2:02PM ; [facility] Patient education about a pr oper diet Last Documented On 3 2:02PM ; [facility] Discussed concerns about exe rcise : promote physical activity Last Documented On 3 2:02PM ; [facility] Discussed nutritional needs teach healthy choices including fruits and vegetables Last Documented On 3 8:32AM ; [facility] Patient education about a pr oper diet Last Documented On 3 8:32AM ; [facility] Discussed concerns about exe rcise : promote physical activity Last Documented On 3 8:32AM ; [facility] Discussed nutritional needs teach healthy choices including fruits and vegetables Last Documented On 3 11:28AM ; [facility] Patient education about a pr oper diet Last Documented On 3 11:28AM ; [facility] Discussed concerns about exe rcise : promote physical activity Last Documented On 3 11:28AM ; [facility] Discussed nutritional needs teach healthy choices including fruits and vegetables Last Documented On 2 2:01PM ; [facility] Patient education about a pr oper diet Last Documented On 2 2:01PM ; [facility] Discussed concerns about exe rcise : promote physical activity Last Documented On 2 2:01PM ; [facility] Discussed nutritional needs teach healthy choices including fruits and vegetables Last Documented On 2 2:11PM ; [facility] Patient education about a pr oper diet Last Documented On 2 2:11PM ; [facility] Discussed concerns about exe rcise : promote physical activity Last Documented On 2 2:11PM ; [facility] Discussed current self-care methods/coping skills. ~Validated and normalized pt's feelings while assisting patient process recent events. ~Discussed ongoing counseling. ~Discussed lifestyle changes to address chronic illness. ~Supported patient's personal health goals ~wordfinds. walk, read, eat, enjoy my best friesnd Last Documented On 2 5:54PM ; [facility] Discussed nutritional needs teach healthy choices including fruits and vegetables Last Documented On 2 10:04AM ; [facility] Patient education about a pr oper diet Last Documented On 2 10:04AM ; [facility] Discussed concerns about exe rcise : promote physical activity Last Documented On 2 10:04AM ; [facility] Discussed nutritional needs teach healthy choices including fruits and vegetables Last Documented On 2 1:25PM ; [facility] Patient education about a pr oper diet Last Documented On 2 1:25PM ; [facility] Discussed concerns about exe rcise : promote physical activity Last Documented On 2 1:25PM ; [facility] Discussed nutritional needs teach healthy choices including fruits and vegetables Last Documented On 1 10:08AM ; [facility] Patient education about a pr oper diet Last Documented On 1 10:08AM ; [facility] Discussed concerns about exe rcise : promote physical activity Last Documented On 1 10:08AM ; [facility] Discussed nutritional needs teach healthy choices including fruits and vegetables Last Documented On 1 1:12PM ; [facility] Patient education about a pr oper diet Last Documented On 1 1:12PM ; [facility] Patient education about a pr oper diet Last Documented On 1 1:30PM ; [facility] Patient education about meal planning Last Documented On 1 1:30PM ; [facility] Education about changing eat ing habits Last Documented On 1 1:30PM ; [facility] Patient education about high fiber diet Last Documented On 1 1:30PM ; [facility] Patient education about low fat diet Last Documented On 1 1:30PM ; [facility] Patient education about low cholesterol diet Last Documented On 1 1:30PM ; [facility] Patient education about low carbohydrate diet Last Documented On 1 1:30PM ; [facility] Patient education about high protein diet Last Documented On 1 1:30PM ; [facility] Discussed concerns about exe rcise : promote physical activity Last Documented On 1 1:12PM ; [facility] Education/counseling conduct ed by pharmacist Last Documented On 0 1:39PM ; [facility] Vaccination counseling Last Documented On 0 1:39PM ; [facility] Discussed concerns about exe rcise : promote physical activity Last Documented On 0 2:16PM ; [facility] Patient goals decrease short ness of breath episodes Last Documented On 0 2:11PM ; [facility] Patient states that she uses her [...] recently Last Documented On 0 2:24PM ; [facility] Patient education about a pr oper diet Last Documented On 0 2:54PM ; [facility] Patient education about meal planning Last Documented On 0 2:54PM ; [facility] Education about changing eat ing habits Last Documented On 0 2:54PM ; [facility] Patient education about high fiber diet Last Documented On 0 2:54PM ; [facility] Patient education about low fat diet Last Documented On 0 2:54PM ; [facility] Patient education about low cholesterol diet Last Documented On 0 2:54PM ; [facility] Patient education about low carbohydrate diet Last Documented On 0 2:54PM ; [facility] Patient education about high protein diet Last Documented On 0 2:54PM ; [facility] Discussed nutritional needs teach healthy choices including fruits and vegetables Last Documented On 0 11:11AM ; [facility] Patient education about a pr oper diet Last Documented On 0 11:11AM ; [facility] Patient education about a pr oper diet Last Documented On 0 11:28AM ; [facility] Patient education about meal planning Last Documented On 0 11:28AM ; [facility] Education about changing eat ing habits Last Documented On 0 11:28AM ; [facility] Patient education about high fiber diet Last Documented On 0 11:28AM ; [facility] Patient education about low fat diet Last Documented On 0 11:28AM ; [facility] Patient education about low cholesterol diet Last Documented On 0 11:28AM ; [facility] Patient education about low carbohydrate diet Last Documented On 0 11:28AM ; [facility] Patient education about high protein diet Last Documented On 0 11:28AM ; [facility] Discussed concerns about exe rcise : promote physical activity Last Documented On 0 11:11AM ; [facility] Education/counseling conduct ed by pharmacist Last Documented On 0 1:41PM ; [facility] Patient states that she lonnie gonzalez [...] own Last Documented On 0 2:08PM ; [facility] Education/counseling conduct ed by pharmacist Last Documented On 9 1:12PM ; [facility] Patient states that she lonnie gonzalez has issues with her inhaler with the spacer. Patient did not bring in inhaler or spacer. Patient was told to bring in inhalers at next scheduled visit for pharmacist to assess inhalation technique. Patient is agreeable Last Documented On 9 1:13PM ; [facility] Patient goals Start using ch deon to help with inhaling dulera Last Documented On 9 2:40PM ; [facility] Patient states that she is g [...] vaccines Last Documented On 9 2:51PM ; [facility] Discussed nutritional needs teach healthy choices including fruits and vegetables Last Documented On 9 9:29AM ; [facility] Patient education about a pr oper diet Last Documented On 9 9:29AM ; [facility] Discussed concerns about exe rcise : promote physical activity Last Documented On 9 9:29AM ; [facility] Work Phone: 1(342) 976-571103-27-2023 Instructions Includes: Instructions for all patient encounters Instructions to patient Intervention and counseling on cessation of tobacco use, 3-10 minutes Discussed medication and nicotine replacement for tobacco cessation Last Documented On 3 8:54AM ; [facility] Intervention and counseling on cessation of tobacco use, 3-10 minutes Discussed medication and nicotine replacement for tobacco cessation Last Documented On 2 1:56PM ; [facility] Intervention and counseling on cessation of tobacco use, 3-10 minutes Last Documented On 0 2:07PM ; [facility] Return to the clinic if cond ition worsens or new symptoms arise Last Documented On 9 1:59PM ; [facility] Intervention and counseling on cessation of tobacco use, 3-10 minutes Last Documented On 9 10:39AM ; [facility] Education and Decision Aids were provided during visit for: Discussed nutritional needs teach healthy choices including fruits and vegetables Last Documented On 3 8:32AM ; [facility] Patient education about a pr oper diet Last Documented On 3 8:32AM ; [facility] Discussed concerns about exe rcise : promote physical activity Last Documented On 3 8:32AM ; [facility] Discussed nutritional needs teach healthy choices including fruits and vegetables Last Documented On 3 11:28AM ; [facility] Patient education about a pr oper diet Last Documented On 3 11:28AM ; [facility] Discussed concerns about exe rcise : promote physical activity Last Documented On 3 11:28AM ; [facility] Discussed nutritional needs teach healthy choices including fruits and vegetables Last Documented On 2 2:01PM ; [facility] Patient education about a pr oper diet Last Documented On 2 2:01PM ; [facility] Discussed concerns about exe rcise : promote physical activity Last Documented On 2 2:01PM ; [facility] Discussed nutritional needs teach healthy choices including fruits and vegetables Last Documented On 2 2:11PM ; [facility] Patient education about a pr oper diet Last Documented On 2 2:11PM ; [facility] Discussed concerns about exe rcise : promote physical activity Last Documented On 2 2:11PM ; [facility] Discussed current self-care methods/coping skills. ~Validated and normalized pt's feelings while assisting patient process recent events. ~Discussed ongoing counseling. ~Discussed lifestyle changes to address chronic illness. ~Supported patient's personal health goals ~[employer]. walk, read, eat, enjoy my best friesnd Last Documented On 2 5:54PM ; [facility] Discussed nutritional needs teach healthy choices including fruits and vegetables Last Documented On 2 10:04AM ; [facility] Patient education about a pr oper diet Last Documented On 2 10:04AM ; [facility] [facility] Discussed concerns about exe rcise : promote physical activity Last Documented On 2 10:04AM ; [facility] Discussed nutritional needs teach healthy choices including fruits and vegetables Last Documented On 2 1:25PM ; [facility] Patient education about a pr oper diet Last Documented On 2 1:25PM ; [facility] Discussed concerns about exe rcise : promote physical activity Last Documented On 2 1:25PM ; [facility] Discussed nutritional needs teach healthy choices including fruits and vegetables Last Documented On 1 10:08AM ; [facility] Patient education about a pr oper diet Last Documented On 1 10:08AM ; [facility] Discussed concerns about exe rcise : promote physical activity Last Documented On 1 10:08AM ; [facility] Discussed nutritional needs teach healthy choices including fruits and vegetables Last Documented On 1 1:12PM ; [facility] Patient education about a pr oper diet Last Documented On 1 1:12PM ; [facility] Patient education about a pr oper diet Last Documented On 1 1:30PM ; [facility] Patient education about meal planning Last Documented On 1 1:30PM ; [facility] Education about changing eat ing habits Last Documented On 1 1:30PM ; [facility] Patient education about high fiber diet Last Documented On 1 1:30PM ; [facility] Patient education about low fat diet Last Documented On 1 1:30PM ; [facility] Patient education about low cholesterol diet Last Documented On 1 1:30PM ; [facility] Patient education about low carbohydrate diet Last Documented On 1 1:30PM ; [facility] Patient education about high protein diet Last Documented On 1 1:30PM ; [facility] Discussed concerns about exe rcise : promote physical activity Last Documented On 1 1:12PM ; [facility] Education/counseling conduct ed by pharmacist Last Documented On 0 1:39PM ; [facility] Vaccination counseling Last Documented On 0 1:39PM ; [facility] Discussed concerns about exe rcise : promote physical activity Last Documented On 0 2:16PM ; [facility] Patient goals decrease short ness of breath episodes Last Documented On 0 2:11PM ; [facility] Patient states that she uses her [...] recently Last Documented On 0 2:24PM ; [facility] Patient education about a pr oper diet Last Documented On 0 2:54PM ; [facility] Patient education about meal planning Last Documented On 0 2:54PM ; [facility] Education about changing eat ing habits Last Documented On 0 2:54PM ; [facility] Patient education about high fiber diet Last Documented On 0 2:54PM ; [facility] Patient education about low fat diet Last Documented On 0 2:54PM ; [facility] Patient education about low cholesterol diet Last Documented On 0 2:54PM ; [facility] Patient education about low carbohydrate diet Last Documented On 0 2:54PM ; [facility] Patient education about high protein diet Last Documented On 0 2:54PM ; [facility] Discussed nutritional needs teach healthy choices including fruits and vegetables Last Documented On 0 11:11AM ; [facility] Patient education about a pr oper diet Last Documented On 0 11:11AM ; [facility] Patient education about a pr oper diet Last Documented On 0 11:28AM ; [facility] Patient education about meal planning Last Documented On 0 11:28AM ; [facility] Education about changing eat ing habits Last Documented On 0 11:28AM ; [facility] Patient education about high fiber diet Last Documented On 0 11:28AM ; [facility] Patient education about low fat diet Last Documented On 0 11:28AM ; [facility] Patient education about low cholesterol diet Last Documented On 0 11:28AM ; [facility] Patient education about low carbohydrate diet Last Documented On 0 11:28AM ; [facility] Patient education about high protein diet Last Documented On 0 11:28AM ; [facility] Discussed concerns about exe rcise : promote physical activity Last Documented On 0 11:11AM ; [facility] Education/counseling conduct ed by pharmacist Last Documented On 0 1:41PM ; [facility] Patient states that she lonnie gonzalez [...] own Last Documented On 0 2:08PM ; [facility] Education/counseling conduct ed by pharmacist Last Documented On 9 1:12PM ; [facility] Patient states that she lonnie gonzalez has issues with her inhaler with the spacer. Patient did not bring in inhaler or spacer. Patient was told to bring in inhalers at next scheduled visit for pharmacist to assess inhalation technique. Patient is agreeable Last Documented On 9 1:13PM ; [facility] Patient goals Start using ch deon to help with inhaling dulera Last Documented On 9 2:40PM ; [facility] Patient states that she is g [...] vaccines Last Documented On 9 2:51PM ; [facility] Discussed nutritional needs teach healthy choices including fruits and vegetables Last Documented On 9 9:29AM ; [facility] Patient education about a pr oper diet Last Documented On 9 9:29AM ; [facility] Discussed concerns about exe rcise : promote physical activity Last Documented On 9 9:29AM ; [facility] Work Phone: [phone] Instructions Includes: Instructions for all patient encounters Instructions to patient Intervention and counseling on cessation of tobacco use, 3-10 minutes Discussed medication and nicotine replacement for tobacco cessation Last Documented On 3 8:54AM ; [facility] Intervention and counseling on cessation of tobacco use, 3-10 minutes Discussed medication and nicotine replacement for tobacco cessation Last Documented On 2 1:56PM ; [facility] Intervention and counseling on cessation of tobacco use, 3-10 minutes Last Documented On 0 2:07PM ; [facility] Return to the clinic if cond ition worsens or new symptoms arise Last Documented On 9 1:59PM ; [facility] Intervention and counseling on cessation of tobacco use, 3-10 minutes Last Documented On 9 10:39AM ; [facility] Education and Decision Aids were provided during visit for: Discussed nutritional needs teach healthy choices including fruits and vegetables Last Documented On 3 8:32AM ; [facility] Patient education about a pr oper diet Last Documented On 3 8:32AM ; [facility] Discussed concerns about exe rcise : promote physical activity Last Documented On 3 8:32AM ; [facility] Discussed nutritional needs teach healthy choices including fruits and vegetables Last Documented On 3 11:28AM ; [facility] Patient education about a pr oper diet Last Documented On 3 11:28AM ; [facility] Discussed concerns about exe rcise : promote physical activity Last Documented On 3 11:28AM ; [facility] Discussed nutritional needs teach healthy choices including fruits and vegetables Last Documented On 2 2:01PM ; [facility] Patient education about a pr oper diet Last Documented On 2 2:01PM ; [facility] Discussed concerns about exe rcise : promote physical activity Last Documented On 2 2:01PM ; [facility] Discussed nutritional needs teach healthy choices including fruits and vegetables Last Documented On 2 2:11PM ; [facility] Patient education about a pr oper diet Last Documented On 2 2:11PM ; [facility] Discussed concerns about exe rcise : promote physical activity Last Documented On 2 2:11PM ; [facility] Discussed current self-care methods/coping skills. ~Validated and normalized pt's feelings while assisting patient process recent events. ~Discussed ongoing counseling. ~Discussed lifestyle changes to address chronic illness. ~Supported patient's personal health goals ~wordfinds. walk, read, eat, enjoy my best friesnd Last Documented On 2 5:54PM ; [facility] Discussed nutritional needs teach healthy choices including fruits and vegetables Last Documented On 2 10:04AM ; [facility] Patient education about a pr oper diet Last Documented On 2 10:04AM ; [facility] Discussed concerns about exe rcise : promote physical activity Last Documented On 2 10:04AM ; [facility] Discussed nutritional needs teach healthy choices including fruits and vegetables Last Documented On 2 1:25PM ; [facility] Patient education about a pr oper diet Last Documented On 2 1:25PM ; [facility] Discussed concerns about exe rcise : promote physical activity Last Documented On 2 1:25PM ; [facility] Discussed nutritional needs teach healthy choices including fruits and vegetables Last Documented On 1 10:08AM ; [facility] Patient education about a pr oper diet Last Documented On 1 10:08AM ; [facility] Discussed concerns about exe rcise : promote physical activity Last Documented On 1 10:08AM ; [facility] Discussed nutritional needs teach healthy choices including fruits and vegetables Last Documented On 1 1:12PM ; [facility] Patient education about a pr oper diet Last Documented On 1 1:12PM ; [facility] Patient education about a pr oper diet Last Documented On 1 1:30PM ; [facility] Patient education about meal planning Last Documented On 1 1:30PM ; [facility] Education about changing eat ing habits Last Documented On 1 1:30PM ; [facility] Patient education about high fiber diet Last Documented On 1 1:30PM ; [facility] Patient education about low fat diet Last Documented On 1 1:30PM ; [facility] Patient education about low cholesterol diet Last Documented On 1 1:30PM ; [facility] Patient education about low carbohydrate diet Last Documented On 1 1:30PM ; [facility] Patient education about high protein diet Last Documented On 1 1:30PM ; [facility] Discussed concerns about exe rcise : promote physical activity Last Documented On 1 1:12PM ; [facility] Education/counseling conduct ed by pharmacist Last Documented On 0 1:39PM ; [facility] Vaccination counseling Last Documented On 0 1:39PM ; [facility] Discussed concerns about exe rcise : promote physical activity Last Documented On 0 2:16PM ; [facility] Patient goals decrease short ness of breath episodes Last Documented On 0 2:11PM ; [facility] Patient states that she uses her [...] recently Last Documented On 0 2:24PM ; [facility] Patient education about a pr oper diet Last Documented On 0 2:54PM ; [facility] Patient education about meal planning Last Documented On 0 2:54PM ; [facility] Education about changing eat ing habits Last Documented On 0 2:54PM ; [facility] Patient education about high fiber diet Last Documented On 0 2:54PM ; [facility] Patient education about low fat diet Last Documented On 0 2:54PM ; [facility] Patient education about low cholesterol diet Last Documented On 0 2:54PM ; [facility] Patient education about low carbohydrate diet Last Documented On 0 2:54PM ; [facility] Patient education about high protein diet Last Documented On 0 2:54PM ; [facility] Discussed nutritional needs teach healthy choices including fruits and vegetables Last Documented On 0 11:11AM ; [facility] Patient education about a pr oper diet Last Documented On 0 11:11AM ; [facility] Patient education about a pr oper diet Last Documented On 0 11:28AM ; [facility] Patient education about meal planning Last Documented On 0 11:28AM ; [facility] Education about changing eat ing habits Last Documented On 0 11:28AM ; [facility] Patient education about high fiber diet Last Documented On 0 11:28AM ; [facility] Patient education about low fat diet Last Documented On 0 11:28AM ; [facility] Patient education about low cholesterol diet Last Documented On 0 11:28AM ; [facility] Patient education about low carbohydrate diet Last Documented On 0 11:28AM ; [facility] Patient education about high protein diet Last Documented On 0 11:28AM ; [facility] Discussed concerns about exe rcise : promote physical activity Last Documented On 0 11:11AM ; [facility] Education/counseling conduct ed by pharmacist Last Documented On 0 1:41PM ; [facility] Patient states that she lonnie gonzalez [...] own Last Documented On 0 2:08PM ; [facility] Education/counseling conduct ed by pharmacist Last Documented On 9 1:12PM ; [facility] Patient states that she lonnie gonzalez has issues with her inhaler with the spacer. Patient did not bring in inhaler or spacer. Patient was told to bring in inhalers at next scheduled visit for pharmacist to assess inhalation technique. Patient is agreeable Last Documented On 9 1:13PM ; [facility] Patient goals Start using ch deon to help with inhaling dulera Last Documented On 9 2:40PM ; [facility] Patient states that she is g [...] vaccines Last Documented On 9 2:51PM ; [facility] Discussed nutritional needs teach healthy choices including fruits and vegetables Last Documented On 9 9:29AM ; [facility] Patient education about a pr oper diet Last Documented On 9 9:29AM ; [facility] Discussed concerns about exe rcise : promote physical activity Last Documented On 9 9:29AM ; [facility] Work Phone: [phone] Instructions Includes: Instructions for all patient encounters Instructions to patient Intervention and counseling on cessation of tobacco use, 3-10 minutes Discussed medication and nicotine replacement for tobacco cessation Last Documented On 3 8:54AM ; [facility] Intervention and counseling on cessation of tobacco use, 3-10 minutes Discussed medication and nicotine replacement for tobacco cessation Last Documented On 2 1:56PM ; [facility] Intervention and counseling on cessation of tobacco use, 3-10 minutes Last Documented On 0 2:07PM ; [facility] Return to the clinic if cond ition worsens or new symptoms arise Last Documented On 9 1:59PM ; [facility] Intervention and counseling on cessation of tobacco use, 3-10 minutes Last Documented On 9 10:39AM ; [facility] Education and Decision Aids were provided during visit for: Discussed nutritional needs teach healthy choices including fruits and vegetables Last Documented On 3 8:32AM ; [facility] Patient education about a pr oper diet Last Documented On 3 8:32AM ; [facility] Discussed concerns about exe rcise : promote physical activity Last Documented On 3 8:32AM ; [facility] Discussed nutritional needs teach healthy choices including fruits and vegetables Last Documented On 3 11:28AM ; [facility] Patient education about a pr oper diet Last Documented On 3 11:28AM ; [facility] Discussed concerns about exe rcise : promote physical activity Last Documented On 3 11:28AM ; [facility] Discussed nutritional needs teach healthy choices including fruits and vegetables Last Documented On 2 2:01PM ; [facility] Patient education about a pr oper diet Last Documented On 2 2:01PM ; [facility] Discussed concerns about exe rcise : promote physical activity Last Documented On 2 2:01PM ; [facility] Discussed nutritional needs teach healthy choices including fruits and vegetables Last Documented On 2 2:11PM ; [facility] Patient education about a pr oper diet Last Documented On 2 2:11PM ; [facility] Discussed concerns about exe rcise : promote physical activity Last Documented On 2 2:11PM ; [facility] Discussed current self-care methods/coping skills. ~Validated and normalized pt's feelings while assisting patient process recent events. ~Discussed ongoing counseling. ~Discussed lifestyle changes to address chronic illness. ~Supported patient's personal health goals ~[employer]finds. walk, read, eat, enjoy my best friesnd Last Documented On 2 5:54PM ; [facility] Discussed nutritional needs teach healthy choices including fruits and vegetables Last Documented On 2 10:04AM ; [facility] Patient education about a pr oper diet Last Documented On 2 10:04AM ; [facility] Discussed concerns about exe rcise : promote physical activity Last Documented On 2 10:04AM ; [facility] Discussed nutritional needs teach healthy choices including fruits and vegetables Last Documented On 2 1:25PM ; [facility] Patient education about a pr oper diet Last Documented On 2 1:25PM ; [facility] Discussed concerns about exe rcise : promote physical activity Last Documented On 2 1:25PM ; [facility] Discussed nutritional needs teach healthy choices including fruits and vegetables Last Documented On 1 10:08AM ; [facility] Patient education about a pr oper diet Last Documented On 1 10:08AM ; [facility] Discussed concerns about exe rcise : promote physical activity Last Documented On 1 10:08AM ; [facility] Discussed nutritional needs teach healthy choices including fruits and vegetables Last Documented On 1 1:12PM ; [facility] Patient education about a pr oper diet Last Documented On 1 1:12PM ; [facility] Patient education about a pr oper diet Last Documented On 1 1:30PM ; [facility] Patient education about meal planning Last Documented On 1 1:30PM ; [facility] Education about changing eat ing habits Last Documented On 1 1:30PM ; [facility] Patient education about high fiber diet Last Documented On 1 1:30PM ; [facility] Patient education about low fat diet Last Documented On 1 1:30PM ; [facility] Patient education about low cholesterol diet Last Documented On 1 1:30PM ; [facility] Patient education about low carbohydrate diet Last Documented On 1 1:30PM ; [facility] Patient education about high protein diet Last Documented On 1 1:30PM ; [facility] Discussed concerns about exe rcise : promote physical activity Last Documented On 1 1:12PM ; [facility] Education/counseling conduct ed by pharmacist Last Documented On 0 1:39PM ; [facility] Vaccination counseling Last Documented On 0 1:39PM ; [facility] Discussed concerns about exe rcise : promote physical activity Last Documented On 0 2:16PM ; [facility] Patient goals decrease short ness of breath episodes Last Documented On 0 2:11PM ; [facility] Patient states that she uses her [...] recently Last Documented On 0 2:24PM ; [facility] Patient education about a pr oper diet Last Documented On 0 2:54PM ; [facility] Patient education about meal planning Last Documented On 0 2:54PM ; [facility] Education about changing eat ing habits Last Documented On 0 2:54PM ; [facility] Patient education about high fiber diet Last Documented On 0 2:54PM ; [facility] Patient education about low fat diet Last Documented On 0 2:54PM ; [facility] Patient education about low cholesterol diet Last Documented On 0 2:54PM ; [facility] Patient education about low carbohydrate diet Last Documented On 0 2:54PM ; [facility] Patient education about high protein diet Last Documented On 0 2:54PM ; [facility] Discussed nutritional needs teach healthy choices including fruits and vegetables Last Documented On 0 11:11AM ; [facility] Patient education about a pr oper diet Last Documented On 0 11:11AM ; [facility] Patient education about a pr oper diet Last Documented On 0 11:28AM ; [facility] Patient education about meal planning Last Documented On 0 11:28AM ; [facility] Education about changing eat ing habits Last Documented On 0 11:28AM ; [facility] Patient education about high fiber diet Last Documented On 0 11:28AM ; [facility] Patient education about low fat diet Last Documented On 0 11:28AM ; [facility] Patient education about low cholesterol diet Last Documented On 0 11:28AM ; [facility] Patient education about low carbohydrate diet Last Documented On 0 11:28AM ; [facility] Patient education about high protein diet Last Documented On 0 11:28AM ; [facility] Discussed concerns about exe rcise : promote physical activity Last Documented On 0 11:11AM ; [facility] Education/counseling conduct ed by pharmacist Last Documented On 0 1:41PM ; [facility] Patient states that she stil l has [...] own Last Documented On 0 2:08PM ; [facility] Education/counseling conduct ed by pharmacist Last Documented On 9 1:12PM ; [facility] Patient states that she lonnie gonzalez has issues with her inhaler with the spacer. Patient did not bring in inhaler or spacer. Patient was told to bring in inhalers at next scheduled visit for pharmacist to assess inhalation technique. Patient is agreeable Last Documented On 9 1:13PM ; [facility] Patient goals Start using ch deon to help with inhaling dulera Last Documented On 9 2:40PM ; [facility] Patient states that she is g [...] vaccines Last Documented On 9 2:51PM ; [facility] Discussed nutritional needs teach healthy choices including fruits and vegetables Last Documented On 9 9:29AM ; [facility] Patient education about a pr oper diet Last Documented On 9 9:29AM ; [facility] Discussed concerns about exe rcise : promote physical activity Last Documented On 9 9:29AM ; [facility] Work Phone: [phone] 460-950501-16-2023 Progress note* Progress note Date Encounter Last Documented by 06/18/2022 Medical Established Patient Last documented on 06/18/2022; 12:11 PM, Karla Clark CNP; [facility] Active Problems & Conditions - R94.31 - [...] been COVID tested last Saturday at the [facility] and was negative. Ear issues started last [...] EVERY DAY, 30 days, 11 refills - [place] Carbonate 300MG Oral Tablet 300 MG take [...] Bipolar disorder NOS Depression Heart Attack 03/2021 [facility]. Surgical: - Hysterectomy Social History Environmental Exposure: [...] BP-Sitting L125/78 mmHg BP Cuff SizeRegular Pulse Rate-Qicuuqe23 bpm Temp-Ldppaxvs74.6 F Iuecck09 in Bdlxqt045 lbs 3.2 oz Body Mass Index24.9 kg/m2 Body Surface Area1.7 m2 Oxygen Jzduowmpdm12 % General Appearance: - Awake. - Alert. 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 [facility]01-16-2023 Instructions Includes: Instructions for all patient encounters Instructions to patient Intervention and counseling on cessation of tobacco use, 3-10 minutes Discussed medication and nicotine replacement for tobacco cessation Last Documented On 2 1:56PM ; [facility] Intervention and counseling on cessation of tobacco use, 3-10 minutes Last Documented On 0 2:07PM ; [facility] Return to the clinic if cond ition worsens or new symptoms arise Last Documented On 9 1:59PM ; [facility] Intervention and counseling on cessation of tobacco use, 3-10 minutes Last Documented On 9 10:39AM ; [facility] Education and Decision Aids were provided during visit for: Discussed nutritional needs teach healthy choices including fruits and vegetables Last Documented On 3 11:28AM ; [facility] Patient education about a pr oper diet Last Documented On 3 11:28AM ; [facility] Discussed concerns about exe rcise : promote physical activity Last Documented On 3 11:28AM ; [facility] Discussed nutritional needs teach healthy choices including fruits and vegetables Last Documented On 2 2:01PM ; [facility] Patient education about a pr oper diet Last Documented On 2 2:01PM ; [facility] Discussed concerns about exe rcise : promote physical activity Last Documented On 2 2:01PM ; [facility] Discussed nutritional needs teach healthy choices including fruits and vegetables Last Documented On 2 2:11PM ; [facility] Patient education about a pr oper diet Last Documented On 2 2:11PM ; [facility] Discussed concerns about exe rcise : promote physical activity Last Documented On 2 2:11PM ; [facility] Discussed current self-care methods/coping skills. ~Validated and normalized pt's feelings while assisting patient process recent events. ~Discussed ongoing counseling. ~Discussed lifestyle changes to address chronic illness. ~Supported patient's personal health goals ~wordfinds. walk, read, eat, enjoy my best friesnd Last Documented On 2 5:54PM ; [facility] Discussed nutritional needs teach healthy choices including fruits and vegetables Last Documented On 2 10:04AM ; [facility] Patient education about a pr oper diet Last Documented On 2 10:04AM ; [facility] Discussed concerns about exe rcise : promote physical activity Last Documented On 2 10:04AM ; [facility] Discussed nutritional needs teach healthy choices including fruits and vegetables Last Documented On 2 1:25PM ; [facility] Patient education about a pr oper diet Last Documented On 2 1:25PM ; [facility] Discussed concerns about exe rcise : promote physical activity Last Documented On 2 1:25PM ; [facility] Discussed nutritional needs teach healthy choices including fruits and vegetables Last Documented On 1 10:08AM ; [facility] Patient education about a pr oper diet Last Documented On 1 10:08AM ; [facility] Discussed concerns about exe rcise : promote physical activity Last Documented On 1 10:08AM ; [facility] Discussed nutritional needs teach healthy choices including fruits and vegetables Last Documented On 1 1:12PM ; [facility] Patient education about a pr oper diet Last Documented On 1 1:12PM ; [facility] Patient education about a pr oper diet Last Documented On 1 1:30PM ; [facility] Patient education about meal planning Last Documented On 1 1:30PM ; [facility] Education about changing eat ing habits Last Documented On 1 1:30PM ; [facility] Patient education about high fiber diet Last Documented On 1 1:30PM ; [facility] Patient education about low fat diet Last Documented On 1 1:30PM ; [facility] Patient education about low cholesterol diet Last Documented On 1 1:30PM ; [facility] Patient education about low carbohydrate diet Last Documented On 1 1:30PM ; [facility] Patient education about high protein diet Last Documented On 1 1:30PM ; [facility] Discussed concerns about exe rcise : promote physical activity Last Documented On 1 1:12PM ; [facility] Education/counseling conduct ed by pharmacist Last Documented On 0 1:39PM ; [facility] Vaccination counseling Last Documented On 0 1:39PM ; [facility] Discussed concerns about exe rcise : promote physical activity Last Documented On 0 2:16PM ; [facility] Patient goals decrease short ness of breath episodes Last Documented On 0 2:11PM ; [facility] Patient states that she uses her [...] recently Last Documented On 0 2:24PM ; [facility] Patient education about a pr oper diet Last Documented On 0 2:54PM ; [facility] Patient education about meal planning Last Documented On 0 2:54PM ; [facility] Education about changing eat ing habits Last Documented On 0 2:54PM ; [facility] Patient education about high fiber diet Last Documented On 0 2:54PM ; [facility] Patient education about low fat diet Last Documented On 0 2:54PM ; [facility] Patient education about low cholesterol diet Last Documented On 0 2:54PM ; [facility] Patient education about low carbohydrate diet Last Documented On 0 2:54PM ; [facility] Patient education about high protein diet Last Documented On 0 2:54PM ; [facility] Discussed nutritional needs teach healthy choices including fruits and vegetables Last Documented On 0 11:11AM ; [facility] Patient education about a pr oper diet Last Documented On 0 11:11AM ; [facility] Patient education about a pr oper diet Last Documented On 0 11:28AM ; [facility] Patient education about meal planning Last Documented On 0 11:28AM ; [facility] Education about changing eat ing habits Last Documented On 0 11:28AM ; [facility] Patient education about high fiber diet Last Documented On 0 11:28AM ; [facility] Patient education about low fat diet Last Documented On 0 11:28AM ; [facility] Patient education about low cholesterol diet Last Documented On 0 11:28AM ; [facility] Patient education about low carbohydrate diet Last Documented On 0 11:28AM ; [facility] Patient education about high protein diet Last Documented On 0 11:28AM ; [facility] Discussed concerns about exe rcise : promote physical activity Last Documented On 0 11:11AM ; [facility] Education/counseling conduct ed by pharmacist Last Documented On 0 1:41PM ; [facility] Patient states that she lonnie gonzalez [...] own Last Documented On 0 2:08PM ; [facility] Education/counseling conduct ed by pharmacist Last Documented On 9 1:12PM ; [facility] Patient states that she lonnie gonzalez has issues with her inhaler with the spacer. Patient did not bring in inhaler or spacer. Patient was told to bring in inhalers at next scheduled visit for pharmacist to assess inhalation technique. Patient is agreeable Last Documented On 9 1:13PM ; [facility] Patient goals Start using ch deon to help with inhaling dulera Last Documented On 9 2:40PM ; [facility] Patient states that she is g [...] vaccines Last Documented On 9 2:51PM ; [facility] Discussed nutritional needs teach healthy choices including fruits and vegetables Last Documented On 9 9:29AM ; [facility] Patient education about a pr oper diet Last Documented On 9 9:29AM ; [facility] Discussed concerns about exe rcise : promote physical activity Last Documented On 9 9:29AM ; [facility] Work Phone: [phone]) 138-356410-18-2022 Evaluation note Includes: Assessments for all patient encounters Findings Encounter Date Bipolar disorder NOS [facility] Schizoaffective disorder Established [facility] No cough Medical Established Patient with Karla Clark [facility] 12/20/2021 Visit for: screening for hum an immunodeficiency virus Medical Established Patient with Karla Clark [employer] 12/20/2021 Z68.24 - Body mass index [BM I] 24.0-24.9, adult Medical Established Patient with Karla Clark [facility] 12/20/2021 Bipolar disorder NOS Established Pita ent with Iyn Feliz [facility] 11/03/2021 Bipolar schizoaffective disorder Esta blished Patient [...] dependence Medical Established Patient with Karla Amber [employer] 07/28/2021 Z68.24 - Body mass index [BM I] 24.0-24.9, adult Medical Established Patient with Karla Amber [employer] 07/28/2021 Assess Colon screening Medical Establish ed Patient with Karla Amber [facility] 05/08/2021 Diabetes Risk Test Score was four score 05/08/2021 Medical Established Patient with Karla Amber [facility] 05/08/2021 Routine adult history and ph ysical (18-64 yrs) without abnormal findings Medical Established Patient with Karla Amber [facility] 05/08/2021 Z68.24 - Body mass index [BM I] 24.0-24.9, adult Medical Established Patient with Karla Clark [facility] 05/08/2021 Z68.24 - Body mass index [BM I] 24.0-24.9, adult Medical Established Patient with Karla Amber [facility] 06/17/2020 Overweight Medical Established Patient with Karla Amber [facility] 06/06/2020 Z68.25 - Body mass index [BM I] 25.0-25.9, adult Medical Established Patient with Karla Amber [facility] 06/06/2020 Antiasthmatics CPS Asthma Clinic-Ne w with Karla Amber [facility] 05/06/2020 Assessment of tobacco use CPS Asthma Cli yash-New with Karlajulius Clark [facility] 05/06/2020 Body mass index CPS Asthma Clinic-Ne w with Karla Amber [facility] 05/06/2020 Chronic obstructive pulmonary disease CP S [facility] 05/06/2020 Overweight CPS Asthma Clinic-Ne w with Karla Amber [facility] 05/06/2020 Z11.4 - Encounter for screen ing for human immunodeficiency virus [HIV] CPS Asthma Clinic-New with Karla Amber [facility] 05/06/2020 Diabetes Risk Test Score was three score 03/31/2020 Medical Established Patient with Karla Clark [facility] 03/31/2020 Overweight Medical Established Patient with Karla Clark [facility] 03/31/2020 Z68.25 - Body mass index [BM I] 25.0-25.9, adult Medical Established Patient with Karla Clark [facility] 03/31/2020 Encounter for Immunization Nurse Visit with Gary Clark [facility] 03/14/2020 Body mass index Medical Established Patient with Karla Clark [facility] 02/26/2020 Overweight Medical Established Patient with Karla Clark [facility] 02/26/2020 Overweight Medical Established Patient with Karla Clark [facility] 07/23/2019 Z68.27 - Body mass index (BM I) 27.0-27.9, adult Medical Established Patient with Karla Clark [facility] 07/23/2019 Occasional asthma CPS- Asthma Clinic- F/U with Karla Clark [facility] 06/05/2019 Overweight CPS- Asthma Clinic- F/U with Karlajulius Clark [facility] 06/05/2019 Z68.27 - Body mass index (BM I) 27.0-27.9 adult CPS- Asthma Clinic- F/U with Karla Clark [facility] 06/05/2019 Occasional asthma CPS Med Review with Karla Clark [facility] 04/23/2019 Overweight CPS Med Review with Karla Clark [facility] 04/23/2019 Z68.27 - Body mass index (BM I) 27.0-27.9 adult CPS Med Review with Karla Clark [facility] 04/23/2019 Acute pharyngitis Medical Established Patient with Brandy Kelley [facility] 04/15/2019 Asthmatic bronchitis with ac [place] exacerbation Medical Established Patient with Brandy Kelley [facility] 04/15/2019 Fagerstrom Score was two Medical Establi shed Patient with Brandy Serranoer [facility] 04/15/2019 PHQ-9: total score was three 04/15/2019 Medical Established Patient with Brandy Serranoer [facility] 04/15/2019 Body mass index Medical Established Patient with Karla Clark [facility] 03/05/2019 Diabetes Risk Test Score was three score Medical Established Patient with Karla Floresen [facility] 03/05/2019 Overweight Medical Established Patient with Karla Clark [facility] 03/05/2019 Z68.28 - Body mass index (BM I) 28.0-28.9, adult Medical Established Patient with Karla Clark [facility] 12/22/2018 Assess routine adult history and physical (18 - 64 yrs) Medical Established Patient with 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 Amber [employer] 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 11/06/2018 Overweight Medical Established Patient with Karla Amber [employer] TE[employer] MANA[employer] 11/06/2018 Z68.28 - Body mass index (BM I) 28.0-28.9, adult Medical Established Patient with Krala Amber [employer] MANAGER 11/06/2018 Assess dysphagia Medical Established Patient with Karla Amber [employer] TE[employer]GER 09/11/2018 Assess routine adult history and physical (18 - 64 yrs) Medical Established Patient with Karla Amber [employer] TE[employer] 09/11/2018 Assess primary insomnia with sleep apnea Medical Established Patient with Karla Amber [employer] TE[employer] MA[employer] 09/04/2018 Assess routine adult history and physical (18 - 64 yrs) Medical Established Patient with Karla Amber [employer] TE[employer] 09/04/2018 Overweight Medical Established Patient with Karla Amber [employer] TE[employer] 09/04/2018 Z68.29 - Body mass index (BM I) 29.0-29.9, adult Medical Established Patient with Karla Amber [employer] 09/04/2018 Assess vaginal candidiasis Medical Estab lished Patient with Karla Amber [employer] 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 07/31/2018 [facility] Work Phone: [phone]) 563-181110-18-2022 Evaluation note Includes: Assessments for all patient encounters Findings Encounter Date Schizoaffective disorder BH Established Patient with Yin Feliz [facility] 03/20/2022 No cough Medical Established Patient with Karla Amber [employer] TE[employer] MA[employer] 12/20/2021 Visit for: screening for hum an immunodeficiency virus Medical Established Patient with Karla Amber [employer] TE[employer] MA[employer] 12/20/2021 Z68.24 - Body mass index [BM I] 24.0-24.9, adult Medical Established Patient with Karla Amber [employer] TE[employer] 12/20/2021 Bipolar disorder NOS BH Established Pita [...] Cough Medical Established Patient with Karla Amber [facility] 07/28/2021 Intervention and counseling on cessation of tobacco use, 3-10 minutes Discussed medication and nicotine replacement for tobacco cessation Medical Established Patient with Karla Clark [facility] 07/28/2021 Nicotine dependence Medical Established Patient with Karla Clark [facility] 07/28/2021 Z68.24 - Body mass index [BM I] 24.0-24.9, adult Medical Established Patient with Karla Clark [facility] 07/28/2021 Assess Colon screening Medical Establish ed Patient with Karla Clark [facility] 05/08/2021 Diabetes Risk Test Score was four score 05/08/2021 Medical Established Patient with Karla Clark [facility] 05/08/2021 Routine adult history and ph ysical (18-64 yrs) without abnormal findings Medical Established Patient with Karla Clark [facility] 05/08/2021 Z68.24 - Body mass index [BM I] 24.0-24.9, adult [facility] Z68.24 - Body mass index [BM I] 24.0-24.9, adult Medical Established Patient with Karla Clark [facility] 06/17/2020 Overweight Medical Established Patient with Karla Clark [facility] 06/06/2020 Z68.25 - Body mass index [BM I] 25.0-25.9, adult Medical Established Patient with Karla Clark [facility] 06/06/2020 Antiasthmatics CPS Asthma Clinic-Ne w with [facility] 05/06/2020 Assessment of tobacco use CPS Asthma Cli yash-New with Karla Amber C[facility] 05/06/2020 Body mass index CPS Asthma Clinic-Ne w with [facility] 05/06/2020 Chronic obstructive pulmonary disease CP S Asthma Clinic-New with [facility] 05/06/2020 Overweight CPS Asthma Clinic-Ne w with [facility] 05/06/2020 Z11.4 - Encounter for screen ing for human immunodeficiency virus [HIV] CPS Asthma Clinic-New with [facility] 05/06/2020 Diabetes Risk Test Score was three score 03/31/2020 [facility] Over[facility] Medical Established Patient with [facility] 03/31/2020 Z68.25 - Body mass index [BM I] 25.0-25.9, adult Medical Established Patient with Karla Clark [facility] 03/31/2020 Encounter for Immunization Nurse Visit with Gary Clark [facility] 03/14/2020 Body mass index Medical Established Patient with Karla Clark [facility] 02/26/2020 Overweight Medical Established Patient with Karla Clark [facility] 02/26/2020 Overweight Medical Established Patient with Karla Clark [facility] 07/23/2019 Z68.27 - Body mass index (BM I) 27.0-27.9, adult Medical Established Patient with Karla Amber [facility] 07/23/2019 Occasional asthma CPS- Asthma Clinic- F/U with Karla Amber [facility] 06/05/2019 Overweight CPS- Asthma Clinic- F/U with Karla Amber [facility] 06/05/2019 Z68.27 - Body mass index (BM I) 27.0-27.9 adult CPS- Asthma Clinic- F/U with Karla Amber [facility] 06/05/2019 Occasional asthma CPS Med Review with Karla Amber [facility] 04/23/2019 Overweight CPS Med Review with Karla Amber [facility] 04/23/2019 Z68.27 - Body mass index (BM I) 27.0-27.9 adult CPS Med Review with Karla Clark [facility] 04/23/2019 Acute pharyngitis Medical Established Patient with Brandy Serranoer [facility] 04/15/2019 Asthmatic bronchitis with ac [place] exacerbation Medical Established Patient with Brandy Serranoer [facility] 04/15/2019 Fagerstrom Score was two Medical Establi shed Patient with Brandy Serranoer [facility] 04/15/2019 PHQ-9: total score was three 04/15/2019 Medical Established Patient with Brandy Serranoer [facility] 04/15/2019 Body mass index Medical Established Patient with Karla Clark [facility] 03/05/2019 Diabetes Risk Test Score was three score Medical Established Patient with Karla Clark [facility] 03/05/2019 Overweight Medical Established Patient with Karla Clark [facility] 03/05/2019 Z68.28 - Body mass index (BM I) 28.0-28.9, adult Medical Established Patient with Karla Clark [facility] 12/22/2018 Assess routine adult history and physical (18 - 64 yrs) Medical Established Patient with Karla Floresen [facility] 11/06/2018 Overweight Medical Established Patient with Karla Amber [facility] 11/06/2018 Z68.28 - Body mass index (BM I) 28.0-28.9, adult Medical Established Patient with Karla Clark [employer] TE[employer] MA[employer]GER 11/06/2018 Assess dysphagia Medical Established Patient with Karlajulius Clark [employer] TE[employer] MA[employer] 09/11/2018 Assess routine adult history and physical (18 - 64 yrs) Medical Established Patient with Karla Amber [employer] TE[employer] MANAGER 09/11/2018 Assess primary insomnia with sleep apnea Medical Established Patient with Karlajulius Clark [employer] TE[employer] MA[employer] 09/04/2018 Assess routine adult history and physical (18 - 64 yrs) Medical Established Patient with Karla Amber [employer] TE[employer] MANAGER 09/04/2018 Overweight Medical Established Patient with Karla Amber [employer] TECH[employer] MANAGER 09/04/2018 Z68.29 - Body mass index (BM I) 29.0-29.9, adult Medical Established Patient with Karlajulius Clark [employer] TE[employer] MANAGER 09/04/2018 Assess vaginal candidiasis Medical Estab lished Patient with Karla Amber [employer] TECH[employer] MANAGER 07/31/2018 [facility] Work Phone: 1([phone]) 703-771210-18-2022 History general Narrative - Reported Includes: Medical History in patient's chart Description Last Updated No previous hospitalizations 03/20/2022 Currently nursing 11/03/2021 [facility] status unknown for sexually tra nsmitted infection 11/03/2021 11/03/2021 Not planning to have a baby in the next 12 months 11/03/2021 Heart Attack 03/2021 [facility] 1 07/09/2020 A recent immunization for flu 05/06/2020 Patient gave verbal consent for teleheal 08/31/2019 History of abnormal electrocardiogram History of asthma 07/31/2018 History of cardiovascular disorder 07/31 History of respiratory disorder 07/31/19 19 History of bipolar disorder NOS 07/31/19 19 History of depression 07/31/2018 History of psychiatric disorders 019 [facility] Work Phone: 1(363) 521-638210-18-2022 History general Narrative - Reported Includes: Medical History in patient's chart Description Last Updated No previous hospitalizations 03/20/2022 Last Documented On 2 2:28PM ; [facility] Currently nursing 11/03/2021 Last Documented On 2 7:00PM ; [facility] status unknown for sexually tra nsmitted infection 11/03/2021 Last Documented On 2 7:00PM ; [facility] 11/03/2021 Last Documented On 2 7:00PM ; [facility] Not planning to have a baby in the next 12 months 11/03/2021 Last Documented On 2 7:00PM ; [facility] Heart Attack 03/2021 [facility] 1 07/09/2020 Last Documented On 1 10:59AM ; [facility] A recent immunization for flu 05/06/2020 Last Documented On 0 7:27PM ; [facility] Patient gave verbal consent for teleheal th 08/31/2019 Last Documented On 0 9:21AM ; [facility] History of abnormal electrocardiogram Last Documented On 9 2:12PM ; [facility] History of asthma 07/31/2018 Last Documented On 9 2:12PM ; [facility] History of cardiovascular disorder 07/31 Last Documented On 9 2:12PM ; [facility] History of respiratory disorder 07/31/19 19 Last Documented On 9 2:12PM ; [facility] History of bipolar disorder NOS 07/31/19 19 Last Documented On 9 2:12PM ; [facility] History of depression 07/31/2018 Last Documented On 9 2:12PM ; [facility] History of psychiatric disorders 019 Last Documented On 9 2:12PM ; [facility] Work Phone: 1(702) 549-188210-18-2022 History general Narrative - Reported Includes: Medical History in patient's chart Description Last Updated No previous hospitalizations 03/20/2022 Last Documented On 2 2:28PM ; [facility] Currently nursing 11/03/2021 Last Documented On 2 7:00PM ; [facility] status unknown for sexually tra nsmitted infection 11/03/2021 Last Documented On 2 7:00PM ; [facility] 11/03/2021 Last Documented On 2 7:00PM ; [facility] Not planning to have a baby in the next 12 months 11/03/2021 Last Documented On 2 7:00PM ; [facility] Heart Attack 03/2021 [facility] 1 07/09/2020 Last Documented On 1 10:59AM ; [facility] A recent immunization for flu 05/06/2020 Last Documented On 0 7:27PM ; [facility] Patient gave verbal consent for teleheal th 08/31/2019 Last Documented On 0 9:21AM ; [facility] History of abnormal electrocardiogram Last Documented On 9 2:12PM ; [facility] History of asthma 07/31/2018 Last Documented On 9 2:12PM ; [facility] History of cardiovascular disorder 07/31 Last Documented On 9 2:12PM ; [facility] History of respiratory disorder 07/31/19 19 Last Documented On 9 2:12PM ; [facility] History of bipolar disorder NOS 07/31/19 19 Last Documented On 9 2:12PM ; [facility] History of depression 07/31/2018 Last Documented On 9 2:12PM ; [facility] History of psychiatric disorders 019 Last Documented On 9 2:12PM ; [facility] Work Phone: 1([phone]) 622-676610-18-2022 History general Narrative - Reported Includes: Medical History in patient's chart Description Last Updated No previous hospitalizations 03/20/2022 Last Documented On 2 2:28PM ; [facility] Currently nursing 11/03/2021 Last Documented On 2 7:00PM ; [facility] status unknown for sexually tra nsmitted infection 11/03/2021 Last Documented On 2 7:00PM ; [facility] 11/03/2021 Last Documented On 2 7:00PM ; [facility] Not planning to have a baby in the next 12 months 11/03/2021 Last Documented On 2 7:00PM ; [facility] Heart Attack 03/2021 [facility] 1 07/09/2020 Last Documented On 1 10:59AM ; [facility] A recent immunization for flu 05/06/2020 Last Documented On 0 7:27PM ; [facility] Patient gave verbal consent for teleheal th 08/31/2019 Last Documented On 0 9:21AM ; [facility] History of abnormal electrocardiogram Last Documented On 9 2:12PM ; [facility] History of asthma 07/31/2018 Last Documented On 9 2:12PM ; [facility] History of cardiovascular disorder 07/31 Last Documented On 9 2:12PM ; [facility] History of respiratory disorder 07/31/19 19 Last Documented On 9 2:12PM ; [facility] History of bipolar disorder NOS 07/31/19 19 Last Documented On 9 2:12PM ; [facility] History of depression 07/31/2018 Last Documented On 9 2:12PM ; [facility] History of psychiatric disorders 019 Last Documented On 9 2:12PM ; [facility] Work Phone: 1(759) 174-784410-18-2022 History general Narrative - Reported Includes: Medical History in patient's chart Description Last Updated No previous hospitalizations 03/20/2022 Last Documented On 2 2:28PM ; [facility] Currently nursing 11/03/2021 Last Documented On 2 7:00PM ; [facility] status unknown for sexually tra nsmitted infection 11/03/2021 Last Documented On 2 7:00PM ; [facility] 11/03/2021 Last Documented On 2 7:00PM ; [facility] Not planning to have a baby in the next 12 months 11/03/2021 Last Documented On 2 7:00PM ; [facility] Heart Attack 03/2021 [facility] 1 07/09/2020 Last Documented On 1 10:59AM ; [facility] A recent immunization for flu 05/06/2020 Last Documented On 0 7:27PM ; [facility] Patient gave verbal consent for teleheal th 08/31/2019 Last Documented On 0 9:21AM ; [facility] History of abnormal electrocardiogram Last Documented On 9 2:12PM ; [facility] History of asthma 07/31/2018 Last Documented On 9 2:12PM ; [facility] History of cardiovascular disorder 07/31 Last Documented On 9 2:12PM ; [facility] History of respiratory disorder 07/31/19 19 Last Documented On 9 2:12PM ; [facility] History of bipolar disorder NOS 07/31/19 19 Last Documented On 9 2:12PM ; [facility] History of depression 07/31/2018 Last Documented On 9 2:12PM ; [facility] History of psychiatric disorders 019 Last Documented On 9 2:12PM ; [facility] Work Phone: 1(159) 210-393110-04-2022 History of Present illness Narrative* Soni Sosa - 03/06/2022 1:00 PM EDT Explained policies and procedure of an echocardiogram/Doppler study. [facility] Work Phone: 1(505) 304-639107-20-2022 Evaluation note Includes: Assessments for all patient encounters Findings Encounter Date No cough Medical Established Patient with Karla Calrk DAKSHA 12/20/2021 Visit for: screening for hum an immunodeficiency virus Medical Established Patient with Karla Clark INTERNET TECHNOLOGY MANAGER 12/20/2021 Z68.24 - Body mass index [BM I] 24.0-24.9, adult Medical Established Patient with Karla Clark INTERNET TECHNOLOGY MANAGER 12/20/2021 Bipolar disorder NOS BH Established Pita ent with Yinluis Feliz [facility] 11/03/2021 Bipolar schizoaffective disorder BH Esta blished Patient with Yinluis Reedermons [facility] 11/03/2021 PLAN Medical Established Patient with Dno Pino MD 11/03/2021 Abnormal electrocardiogram Medical Estab lished Patient with Don Pino MD 11/03/2021 Z68.24 - Body mass index [BM I] 24.0-24.9, adult Medical Established Patient with Don Pino MD 11/03/2021 Cough Medical Established Patient with Karla Amber [facility] 07/28/2021 Intervention and counseling on cessation of tobacco use, 3-10 minutes Discussed medication and nicotine replacement for tobacco cessation Medical Established Patient with Karla Clark INTERNET TECHNOLOGY MANAGER 07/28/2021 Nicotine dependence Medical Established Patient with Karla Clark [facility] 07/28/2021 Z68.24 - Body mass index [BM I] 24.0-24.9, adult Medical Established Patient with Karla Clark [facility] 07/28/2021 Assess Colon screening Medical Establish ed Patient with Karla Clark [facility] 05/08/2021 Diabetes Risk Test Score was four score 05/08/2021 Medical Established Patient with Karla Clark [facility] 05/08/2021 Routine adult history and ph ysical (18-64 yrs) without abnormal findings Medical Established Patient with Karla Clark INTERNET TECHNOLOGY MANAGER 05/08/2021 Z68.24 - Body mass index [BM I] 24.0-24.9, adult Medical Established Patient with Karla Clark [facility] 05/08/2021 Z68.24 - Body mass index [BM I] 24.0-24.9, adult Medical Established Patient with Karla Clark [facility] 06/17/2020 Overweight Medical Established Patient with Karla Clark [facility] 06/06/2020 Z68.25 - Body mass index [BM I] 25.0-25.9, adult Medical Established Patient with Karla Clark INTERNET TECHNOLOGY MANAGER 06/06/2020 Antiasthmatics [facility] Asthma Clinic-Ne w with Karla Amber [facility] 05/06/2020 Assessment of tobacco use CPS Asthma Cli yash-New with Karla Amber [facility] 05/06/2020 Body mass index CPS Asthma Clinic-Ne w with Karlajulius Clark INTERNET TECHNOLOGY MANAGER 05/06/2020 Chronic obstructive pulmonary disease CP S [facility] Clinic-New with Karlajulius Clark INTERNET TECHNOLOGY MANAGER 05/06/2020 Overweight CPS Asthma Clinic-Ne w with Karlajulius Calrk [facility] 05/06/2020 Z11.4 - Encounter for screen ing for human immunodeficiency virus [HIV] CPS Asthma Clinic-New with Karla Amber INTERNET TECHNOLOGY MANAGER 05/06/2020 Diabetes Risk Test Score was three score 03/31/2020 Medical Established Patient with Karla Amber [facility] 03/31/2020 Overweight Medical Established Patient with Karla Amber [facility] 03/31/2020 Z68.25 - Body mass index [BM I] 25.0-25.9, adult Medical Established Patient with Karla Amber INTERNET TECHNOLOGY MANAGER 03/31/2020 Encounter for Immunization Nurse Visit with GaryNicolasa INTERNET TECHNOLOGY MANAGER 03/14/2020 Body mass index Medical Established Patient with Karla Amber INTERNET TECHNOLOGY MANAGER 02/26/2020 Overweight Medical Established Patient with Karla Amber INTERNET TECHNOLOGY MANAGER 02/26/2020 Overweight Medical Established Patient with Karlajulius Clark INTERNET TECHNOLOGY MANAGER 07/23/2019 Z68.27 - Body mass index (BM I) 27.0-27.9, adult Medical Established Patient with Karla Amber INTERNET TECHNOLOGY MANAGER 07/23/2019 Occasional asthma CPS- Asthma Clinic- F/U with Karlajulius Clark INTERNET TECHNOLOGY MANAGER 06/05/2019 Overweight CPS- Asthma Clinic- F/U with Karlajulius Clark INTERNET TECHNOLOGY MANAGER 06/05/2019 Z68.27 - Body mass index (BM I) 27.0-27.9 adult CPS- Asthma Clinic- F/U with Karlajulius Clark INTERNET TECHNOLOGY MANAGER 06/05/2019 Occasional asthma CPS Med Review with Karlajulius Clark [facility] 04/23/2019 Overweight CPS Med Review with Karlajulius Clark [facility] 04/23/2019 Z68.27 - Body mass index (BM I) 27.0-27.9 adult CPS Med Review with Karlajulius Clark [facility] 04/23/2019 Acute pharyngitis Medical Established Patient with Brandy Kelley INTERNET TECHNOLOGY MANAGER 04/15/2019 Asthmatic bronchitis with ac [place] exacerbation Medical Established Patient with Brandy Kelley INTERNET TECHNOLOGY MANAGER 04/15/2019 Fagerstrom Score was two Medical Establi shed Patient with Brandy Kelley INTERNET TECHNOLOGY MANAGER 04/15/2019 PHQ-9: total score was three 04/15/2019 Medical Established Patient with Brandy Kelley CNP 04/15/2019 Body mass index Medical Established Patient with Karla Clark INTERNET TECHNOLOGY MANAGER 03/05/2019 Diabetes Risk Test Score was three score Medical Established Patient with Karla Clark INTERNET TECHNOLOGY MANAGER 03/05/2019 Overweight Medical Established Patient with Karla Clark INTERNET TECHNOLOGY MANAGER 03/05/2019 Z68.28 - Body mass index (BM I) 28.0-28.9, adult Medical Established Patient with Karla Clark INTERNET TECHNOLOGY MANAGER 12/22/2018 Assess routine adult history and physical (18 - 64 yrs) Medical Established Patient with Karla Clark INTERNET TECHNOLOGY MANAGER 11/06/2018 Overweight Medical Established Patient with Karlajulius Clark INTERNET TECHNOLOGY MANAGER 11/06/2018 Z68.28 - Body mass index (BM I) 28.0-28.9, adult Medical Established Patient with Karlajulius Clark INTERNET TECHNOLOGY MANAGER 11/06/2018 Assess dysphagia Medical Established Patient with Karla Clark INTERNET TECHNOLOGY MANAGER 09/11/2018 Assess routine adult history and physical (18 - 64 yrs) Medical Established Patient with Karla Clark INTERNET TECHNOLOGY MANAGER 09/11/2018 Assess primary insomnia with sleep apnea Medical Established Patient with Karla Clark INTERNET TECHNOLOGY MANAGER 09/04/2018 Assess routine adult history and physical (18 - 64 yrs) Medical Established Patient with Karlajulius Clark INTERNET TECHNOLOGY MANAGER 09/04/2018 Overweight Medical Established Patient with Karla Clark INTERNET TECHNOLOGY MANAGER 09/04/2018 Z68.29 - Body mass index (BM I) 29.0-29.9, adult Medical Established Patient with Karla Clark INTERNET TECHNOLOGY MANAGER 09/04/2018 Assess vaginal candidiasis Medical Estab lished Patient with Karla Clark INTERNET TECHNOLOGY MANAGER 07/31/2018 [facility] Work Phone: [phone]) 214-120206-03-2022 Evaluation note Includes: Assessments for all patient [...] cessation Medical Established Patient with Karla Clark [facility] 07/28/2021 Nicotine dependence Medical Established Patient with Karla Clark [facility] 07/28/2021 Z68.24 - Body mass index [BM I] 24.0-24.9, adult Medical Established Patient with Karla Clark [facility] 07/28/2021 Assess Colon screening Medical Establish ed Patient with Karla Clark [facility] 05/08/2021 Diabetes Risk Test Score was four score 05/08/2021 Medical Established Patient with Karla Clark [facility] 05/08/2021 Routine adult history and ph ysical (18-64 yrs) without abnormal findings Medical Established Patient with Karla Floresen [facility] 05/08/2021 Z68.24 - Body mass index [BM I] 24.0-24.9, adult Medical Established Patient with Karla Clark [facility] 05/08/2021 Z68.24 - Body mass index [BM I] 24.0-24.9, adult Medical Established Patient with Karla Amber [facility] 06/17/2020 Overweight Medical Established Patient with Karla Clark [facility] 06/06/2020 Z68.25 - Body mass index [BM I] 25.0-25.9, adult Medical Established Patient with Karla Amber [facility] 06/06/2020 Antiasthmatics CPS Asthma Clinic-Ne w with Karlajulius Clark [facility] 05/06/2020 Assessment of tobacco use CPS Asthma Cli yash-New with Karlajulius Clark [facility] 05/06/2020 Body mass index CPS Asthma Clinic-Ne w with Karla Clark [facility] 05/06/2020 Chronic obstructive pulmonary disease CP S Asthma Clinic-New with Karlajulius Clark [facility] 05/06/2020 Overweight CPS Asthma Clinic-Ne w with Karlajulius Clark [facility] 05/06/2020 Z11.4 - Encounter for screen ing for human immunodeficiency virus [HIV] CPS Asthma Clinic-New with Karlajulius Clark [facility] 05/06/2020 Diabetes Risk Test Score was three score 03/31/2020 Medical Established Patient with Karla Amber [facility] 03/31/2020 Overweight Medical Established Patient with Karlajulius Clark [facility] 03/31/2020 Z68.25 - Body mass index [BM I] 25.0-25.9, adult Medical Established Patient with Karla Amber [facility] 03/31/2020 Encounter for Immunization Nurse Visit with Gary Floresen [facility] 03/14/2020 Body mass index Medical Established Patient with Karla Floresen [facility] 02/26/2020 Overweight Medical Established Patient with Karla Amber INTERNET TECHNOLOGY MANAGER 02/26/2020 Overweight Medical Established Patient with Karla Amber INTERNET TECHNOLOGY MANAGER 07/23/2019 Z68.27 - Body mass index (BM I) 27.0-27.9, adult Medical Established Patient with Karla Amber INTERNET TECHNOLOGY MANAGER 07/23/2019 Occasional asthma CPS- Asthma Clinic- F/U with Karla Amber [facility] 06/05/2019 Overweight CPS- Asthma Clinic- F/U with Karla Amber INTERNET TECHNOLOGY MANAGER 06/05/2019 Z68.27 - Body mass index (BM I) 27.0-27.9 adult CPS- Asthma Clinic- F/U with Karla Amber INTERNET TECHNOLOGY MANAGER 06/05/2019 Occasional asthma CPS Med Review with Karla Amber [facility] 04/23/2019 Overweight CPS Med Review with Karla Amber [facility] 04/23/2019 Z68.27 - Body mass index (BM I) 27.0-27.9 adult CPS Med Review with Karla Amber [facility] 04/23/2019 Acute pharyngitis Medical Established Patient with Brandy Warren [facility] 04/15/2019 Asthmatic bronchitis with ac [place] exacerbation Medical Established Patient with Brandy Warren [facility] 04/15/2019 Fagerstrom Score was two Medical Establi shed Patient with Brandy Serranoer [facility] 04/15/2019 PHQ-9: total score was three 04/15/2019 Medical Established Patient with Brandy Serranoer [facility] 04/15/2019 Body mass index Medical Established Patient with Karla Floresen [facility] 03/05/2019 Diabetes Risk Test Score was three score Medical Established Patient with Karla Amber [facility] 03/05/2019 Overweight Medical Established Patient with Karla Amber [facility] 03/05/2019 Z68.28 - Body mass index (BM I) 28.0-28.9, adult Medical Established Patient with Karla Amber [facility] 12/22/2018 Assess routine adult history and physical (18 - 64 yrs) Medical Established Patient with Karla Amber INTERNET TECHNOLOGY MANAGER 11/06/2018 Overweight Medical Established Patient with Karla Amber INTERNET TECHNOLOGY MANAGER 11/06/2018 Z68.28 - Body mass index (BM I) 28.0-28.9, adult Medical Established Patient with Karla Abmer INTERNET TECHNOLOGY MANAGER 11/06/2018 Assess dysphagia Medical Established Patient with Karla Amber INTERNET TECHNOLOGY MANAGER 09/11/2018 Assess routine adult history and physical (18 - 64 yrs) Medical Established Patient with Karla Clark CNP 09/11/2018 [...] lished Patient with Karla Clark CNP 07/31/2018 [facility] Work Phone: 1(135) 989-920806-03-2022 History general Narrative - Reported Includes: Medical History in patient's chart Description Last Updated Currently nursing 11/03/2021 Partners status unknown for sexually tra nsmitted infection 11/03/2021 11/03/2021 Not planning to have a baby in the next 12 months 11/03/2021 Heart Attack 03/2021 [facility] 1 07/09/2020 A recent immunization for flu 05/06/2020 Patient gave verbal consent for teleheal 08/31/2019 History of abnormal electrocardiogram History of asthma 07/31/2018 History of cardiovascular disorder 07/31 History of respiratory disorder 07/31/19 19 History of bipolar disorder NOS 07/31/19 19 History of depression 07/31/2018 History of psychiatric disorders 019 [facility] Work Phone: 1(272) 849-818305-13-2022 Note [id number]:127[facility] 08-03-2021 Evaluation note* Diagnosis Breast lump on right side at 4 o'clock position Lump or mass in breast documented in this encounter [facility] [employer] Work Phone: 1([phone]) 704-717102-25-2022 Evaluation note Includes: Assessments for all patient encounters Findings Encounter Date Cough Medical Established Patient with Karla Clark CNP 07/28/2021 Intervention and counseling on cessation of tobacco use, 3-10 minutes Discussed medication and nicotine replacement for tobacco cessation Medical Established Patient with Karla Clark INTERNET TECHNOLOGY MANAGER 07/28/2021 Nicotine dependence Medical Established Patient with Karla Clark INTERNET TECHNOLOGY MANAGER 07/28/2021 Z68.24 - Body mass index [BM I] 24.0-24.9, adult Medical Established Patient with Karla Clark INTERNET TECHNOLOGY MANAGER 07/28/2021 Assess Colon screening Medical Establish ed Patient with Karla Clark INTERNET TECHNOLOGY MANAGER 05/08/2021 Diabetes Risk Test Score was four score 05/08/2021 Medical Established Patient with Karla Clark [facility] 05/08/2021 Routine adult history and ph ysical (18-64 yrs) without abnormal findings Medical Established Patient with Karla Clark [facility] 05/08/2021 Z68.24 - Body mass index [BM I] 24.0-24.9, adult Medical Established Patient with Karla Clark [facility] 05/08/2021 Z68.24 - Body mass index [BM I] 24.0-24.9, adult Medical Established Patient with Karla Clark [facility] 06/17/2020 Overweight Medical Established Patient with Karla Clark [facility] 06/06/2020 Z68.25 - Body mass index [BM I] 25.0-25.9, adult Medical Established Patient with Karla Clark [facility] 06/06/2020 Antiasthmatics CPS Asthma Clinic-Ne w with Karla Amber [facility] 05/06/2020 Assessment of tobacco use CPS Asthma Cli yash-New with Karla Amber [facility] 05/06/2020 Body mass index CPS Asthma Clinic-Ne w with Karlajulius Clark [facility] 05/06/2020 Chronic obstructive pulmonary disease CP S Asthma Clinic-New with Karlajulius Clark [facility] 05/06/2020 Overweight CPS Asthma Clinic-Ne w with Karla Amber [facility] 05/06/2020 Z11.4 - Encounter for screen ing for human immunodeficiency virus [HIV] CPS Asthma Clinic-New with Karla Clark [facility] 05/06/2020 Diabetes Risk Test Score was three score 03/31/2020 Medical Established Patient with Karla Amber [facility] 03/31/2020 Overweight Medical Established Patient with Karla Amber [facility] 03/31/2020 Z68.25 - Body mass index [BM I] 25.0-25.9, adult Medical Established Patient with Karla Amber [facility] 03/31/2020 Encounter for Immunization Nurse Visit with Gary Clark [facility] 03/14/2020 Body mass index Medical Established Patient with Karla Clark INTERNET TECHNOLOGY MANAGER 02/26/2020 Overweight Medical Established Patient with Karla Clark [facility] 02/26/2020 Overweight Medical Established Patient with Karla Floresen [facility] 07/23/2019 Z68.27 - Body mass index (BM I) 27.0-27.9, adult Medical Established Patient with Karla Floresen INTERNET TECHNOLOGY MANAGER 07/23/2019 Occasional asthma CPS- Asthma Clinic- F/U with Karla Amber INTERNET TECHNOLOGY MANAGER 06/05/2019 Overweight CPS- Asthma Clinic- F/U with Karla Amber [facility] 06/05/2019 Z68.27 - Body mass index (BM I) 27.0-27.9 adult CPS- Asthma Clinic- F/U with Karla Amber INTERNET TECHNOLOGY MANAGER 06/05/2019 Occasional asthma CPS Med Review with Karla Amber [facility] 04/23/2019 Overweight CPS Med Review with Karla Amber [facility] 04/23/2019 Z68.27 - Body mass index (BM I) 27.0-27.9 adult CPS Med Review with Karla Amber [facility] 04/23/2019 Acute pharyngitis Medical Established Patient with Brandy Serranoer [facility] 04/15/2019 Asthmatic bronchitis with ac [place] exacerbation Medical Established Patient with Brandy Serranoer [facility] 04/15/2019 Fagerstrom Score was two Medical Establi shed Patient with Brandy Serranoer [facility] 04/15/2019 PHQ-9: total score was three 04/15/2019 Medical Established Patient with Brandy Serranoer [facility] 04/15/2019 Body mass index Medical Established Patient with Karla Clark [facility] 03/05/2019 Diabetes Risk Test Score was three score Medical Established Patient with Karla Floresen [facility] 03/05/2019 Overweight Medical Established Patient with Karla Floresen [facility] 03/05/2019 Z68.28 - Body mass index (BM I) 28.0-28.9, adult Medical Established Patient with Karla Floresen [facility] 12/22/2018 Assess routine adult history and physical (18 - 64 yrs) Medical Established Patient with Karla Floresen INTERNET TECHNOLOGY MANAGER 11/06/2018 Overweight Medical Established Patient with Karla Floresen [facility] 11/06/2018 Z68.28 - Body mass index (BM I) 28.0-28.9, adult Medical Established Patient with Karla Amber INTERNET TECHNOLOGY MANAGER 11/06/2018 Assess dysphagia Medical Established Patient with Karla Amber [facility] 09/11/2018 Assess routine adult history and physical (18 - 64 yrs) Medical Established Patient with Karla Amber INTERNET TECHNOLOGY MANAGER 09/11/2018 Assess primary insomnia with sleep apnea Medical Established Patient with Karla Amber INTERNET TECHNOLOGY MANAGER 09/04/2018 Assess routine adult history and physical (18 - 64 yrs) Medical Established Patient with Karla Amber INTERNET TECHNOLOGY MANAGER 09/04/2018 Overweight Medical Established Patient with Karla Amber INTERNET TECHNOLOGY MANAGER 09/04/2018 Z68.29 - Body mass index (BM I) 29.0-29.9, adult Medical Established Patient with Karla Amber INTERNET TECHNOLOGY MANAGER 09/04/2018 Assess vaginal candidiasis Medical Estab lished Patient with Karla Amber INTERNET TECHNOLOGY MANAGER 07/31/2018 [facility] Work Phone: 1(347) 152-469810-01-2021 History general Narrative - Reported Includes: Medical History in patient's chart Description Last Updated Heart Attack 03/2021 [facility] 1 07/09/2020 A recent immunization for flu 05/06/2020 Patient gave verbal consent for teleheal th 08/31/2019 History of abnormal electrocardiogram History of asthma 07/31/2018 History of cardiovascular disorder 07/31 History of respiratory disorder 07/31/19 19 History of bipolar disorder NOS 07/31/19 19 History of depression 07/31/2018 History of psychiatric disorders 019 [facility] Work Phone: 1(960) 434-977212-04-2020 Reason for referral (narrative)* Date Encounter Description Provider Reason for Referral 05/06/20 [facility] Karla Clark INTERNET TECHNOLOGY MANAGER Re ferral To Mental Health Team [facility] Work Phone: [phone]) 619-298604-04-2019 Evaluation note Includes: Assessments for all patient encounters Findings Encounter Date Assess routine adult history and physical (18 - 64 yrs) Established Patient with Karla Amber INTERNET TECHNOLOGY MANAGER 09/04/2018 Overweight Established Patient with Karla Amber INTERNET TECHNOLOGY MANAGER 09/04/2018 Z68.29 - Body mass index (BM I) 29.0-29.9, adult Established Patient with Karla Amber INTERNET TECHNOLOGY MANAGER 09/04/2018 Assess vaginal candidiasis Established P atient with Karla Amber INTERNET TECHNOLOGY MANAGER 07/31/2018 [facility] Work Phone: discharge summary Author Reynaldo Kraft [facility] August 20, 2023 12:42pm Note Date/Time August 20, 2023 8:5 0am [facility] [address] [place] [address] Discharge Summary Signed Patient: Gail Almeida MR#: [id number] : 1955 Acct:[id number] Age/Sex: 67 / F Adm Date: 4 Loc: Room: [address] [place] [address]: Joe Davis MD Copies to: [...] 2 times total 1 time here in [facility] and another time at a different hospital Past suicide attempts: Denies previous suicidal attempts Previous medications: Reports Seroquel, Attalla, Zyprexa, Cogentin Alcohol and Drug Use: Denies alcohol use. Denies street drugs. 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 She [...] Instructions: Important Contact Information You can call [facility] Inpatient Behavioral Health at [phone] any time day or night if you have emergent questions or question regarding discharge instructions. If at any time you are feeling an increase inyour psychiatric symptoms, call your physician or behavioral healthcare provider. If any time you have thoughts of harming yourself or others contact one of the following: Call 98-8 (available 24/12) Crisis Text Line (available 24/12) text 4HOPE to 922295 [facility] Hope Line (available 8 a.m. Midnight) call [phone] ([phone]) Regular Diet No Activity Restrictions Instructions: Schizoaffective Disorder (DC), [facility] DC Instructions Prescriptions: New lithium [...] mg PO DAILY fluticasone propionate 50 mcg/actuation [place],Suspension 1 spray INTRANASAL BID Rx Instructions: inhale [...] tablet 10 mg PO QHS Follow Up: [facility] [Outside] - 09/10/23 8:40 am (A top case assembler will call you on Saturday08/21/23 between 8:00am and 12:00pm. Psychiatry: Saturday09/10/23 at 8:40am with Dr. Munoz. ) Karla Clark APRN, WEB FEEDER-C [Referring] - (Contact your PCP with medical needs. ) Documented By: Reynaldo Kraft MD 08/20/23 0845 Signed By: <Electronically signed by Reynaldo Kraft MD> 08/20/23 1240 [facility] Work Phone: Evaluation + Plan note No data available for this section [facility] Diagnosis History of breast biopsy Other postprocedural status documented in this encounter [facility] Phone: evaluation note Includes: Assessments for all patient encounters Findings Encounter Date Assess Colon screening Medical Establish ed Patient with Karla Clark INTERNET TECHNOLOGY MANAGER 05/08/2021 Diabetes Risk Test Score was four score 05/08/2021 Medical Established Patient with Karla Amber INTERNET TECHNOLOGY MANAGER 05/08/2021 Routine adult history and ph ysical (18-64 yrs) without abnormal findings Medical Established Patient with Karla Amber CROOKS 05/08/2021 Z68.24 - Body mass index [BM I] 24.0-24.9, adult Medical Established Patient with Karla Amber INTERNET TECHNOLOGY MANAGER 05/08/2021 Z68.24 - Body mass index [BM I] 24.0-24.9, adult Medical Established Patient with Karlajulius Clark INTERNET TECHNOLOGY MANAGER 06/17/2020 Overweight Medical Established Patient with Karla Amber INTERNET TECHNOLOGY MANAGER 06/06/2020 Z68.25 - Body mass index [BM I] 25.0-25.9, adult Medical Established Patient with Karla Amber INTERNET TECHNOLOGY MANAGER 06/06/2020 Antiasthmatics CPS [facility] w with Karla Clark INTERNET TECHNOLOGY MANAGER 05/06/2020 Assessment of tobacco use CPS Asthma Cli yahs-New with Akrlajulius Clark CNP 05/06/2020 Body mass index CPS [facility] w with Karla Clark CNP 05/06/2020 Chronic obstructive pulmonary disease CP S [facility] with Karla Clark INTERNET TECHNOLOGY MANAGER 05/06/2020 Overweight CPS [facility]-Ne w with Karlajulius Clark INTERNET TECHNOLOGY MANAGER 05/06/2020 Z11.4 - Encounter for screen ing for human immunodeficiency virus [HIV] CPS [facility] with Karlajulius Clark INTERNET TECHNOLOGY MANAGER 05/06/2020 Diabetes Risk Test Score was three score 03/31/2020 Medical Established Patient with Karlajulius Clark CNP 03/31/2020 Overweight Medical Established Patient with Karlajulius Clark INTERNET TECHNOLOGY MANAGER 03/31/2020 Z68.25 - Body mass index [BM I] 25.0-25.9, adult Medical Established Patient with Karlajulius Clark CNP 03/31/2020 Encounter for Immunization Nurse Visit with Gary Clark CNP 03/14/2020 Body mass index Medical Established Patient with Karla Floresen INTERNET TECHNOLOGY MANAGER 02/26/2020 Overweight Medical Established Patient with Karlajulius Floresen [facility] 02/26/2020 Overweight Medical Established Patient with Karlajulius Floresen INTERNET TECHNOLOGY MANAGER 07/23/2019 Z68.27 - Body mass index (BM I) 27.0-27.9, adult Medical Established Patient with Karla Floresen INTERNET TECHNOLOGY MANAGER 07/23/2019 Occasional asthma CPS- Asthma Clinic- F/U with Karla Amber INTERNET TECHNOLOGY MANAGER 06/05/2019 Overweight CPS- Asthma Clinic- F/U with Karla Amber INTERNET TECHNOLOGY MANAGER 06/05/2019 Z68.27 - Body mass index (BM I) 27.0-27.9 adult CPS- Asthma Clinic- F/U with Karla Amber INTERNET TECHNOLOGY MANAGER 06/05/2019 Occasional asthma CPS Med Review with Karla Abmer [facility] 04/23/2019 Overweight CPS Med Review with Karlajulius Floresen [facility] 04/23/2019 Z68.27 - Body mass index (BM I) 27.0-27.9 adult CPS Med Review with Karla Amber [facility] 04/23/2019 Acute pharyngitis Medical Established Patient with Brandy Warren [facility] 04/15/2019 Asthmatic bronchitis with ac [place] exacerbation Medical Established Patient with Brandy Warren [facility] 04/15/2019 Fagerstrom Score was two Medical Establi shed Patient with Brandy Warren [facility] 04/15/2019 PHQ-9: total score was three 04/15/2019 Medical Established Patient with Brandy Warren [facility] 04/15/2019 Body mass index Medical Established Patient with Karla Clark [facility] 03/05/2019 Diabetes Risk Test Score was three score Medical Established Patient with Karla Floresen [facility] 03/05/2019 Overweight Medical Established Patient with Karla Amebr [facility] 03/05/2019 Z68.28 - Body mass index (BM I) 28.0-28.9, adult Medical Established Patient with Karla Floresen [facility] 12/22/2018 Assess routine adult history and physical (18 - 64 yrs) Medical Established Patient with Karlajulius Floresen INTERNET TECHNOLOGY MANAGER 11/06/2018 Overweight Medical Established Patient with Karla Amber INTERNET TECHNOLOGY MANAGER 11/06/2018 Z68.28 - Body mass index (BM I) 28.0-28.9, adult Medical Established Patient with Karlajulius Floresen INTERNET TECHNOLOGY MANAGER 11/06/2018 Assess dysphagia Medical Established Patient with Karla Amber [facility] 09/11/2018 Assess routine adult history and physical (18 - 64 yrs) Medical Established Patient with Karla Clark CNP 09/11/2018 Assess primary insomnia with sleep apnea Medical Established Patient with Karla Clark CNP 09/04/2018 Assess routine adult history and physical (18 - 64 yrs) Medical Established Patient with Karlajulius Clark CNP 09/04/2018 Overweight Medical Established Patient with Karla Clark CNP 09/04/2018 Z68.29 - Body mass index (BM I) 29.0-29.9, adult Medical Established Patient with Karla Clark CNP 09/04/2018 Assess vaginal candidiasis Medical Estab lished Patient with Karla Clark CNP 07/31/2018 [facility] Work Phone: Evaluation note* Diagnosis Pre-procedure lab exam Pre-procedural laboratory examination documented in this encounter [facility] Work Phone: evaluation note Includes: Assessments for [...] yrs) Established Patient with Karla Clark CNP 09/04/2018 Overweight Established Patient with Karla Clark CNP 09/04/2018 Z68.29 - Body mass index (BM I) 29.0-29.9, adult Established Patient with Karla Clark CNP 09/04/2018 Assess vaginal candidiasis Established P atient with Karla Clark INTERNET TECHNOLOGY MANAGER 07/31/2018 [facility] Work Phone: Evaluation note Includes: Assessments [...] dependence Medical Established Patient with Karla Clark INTERNET TECHNOLOGY MANAGER 07/28/2021 Z68.24 - Body mass index [BM I] 24.0-24.9, adult Medical Established Patient with Karla Clark INTERNET TECHNOLOGY MANAGER 07/28/2021 Assess Colon screening Medical Establish ed Patient with Karla Clark INTERNET TECHNOLOGY MANAGER 05/08/2021 Diabetes Risk Test Score was four score 05/08/2021 Medical Established Patient with Karla Clark INTERNET TECHNOLOGY MANAGER 05/08/2021 Routine adult history and ph ysical (18-64 yrs) without abnormal findings Medical Established Patient with Karla Clark INTERNET TECHNOLOGY MANAGER 05/08/2021 Z68.24 - Body mass index [BM I] 24.0-24.9, adult Medical Established Patient with aKrla Clark [facility] 05/08/2021 Z68.24 - Body mass index [BM I] 24.0-24.9, adult Medical Established Patient with Karla Floresen [facility] 06/17/2020 Overweight Medical Established Patient with Karla Clark [facility] 06/06/2020 Z68.25 - Body mass index [BM I] 25.0-25.9, adult Medical Established Patient with Karla Clark INTERNET TECHNOLOGY MANAGER 06/06/2020 Antiasthmatics CPS [facility] Clinic-Ne w with Karlajulius Clark [facility] 05/06/2020 Assessment of tobacco use CPS Asthma Cli yash-New with Karla Amber [facility] 05/06/2020 Body mass index CPS [facility] Clinic-Ne w with Karlajulius Clark [facility] 05/06/2020 Chronic obstructive pulmonary disease CP S [facility] Clinic-New with Karlajulius Clark [facility] 05/06/2020 Overweight CPS [facility] Clinic-Ne w with Karla Amber [facility] 05/06/2020 Z11.4 - Encounter for screen ing for human immunodeficiency virus [HIV] CPS [facility] Clinic-New with Karla Amber [facility] 05/06/2020 Diabetes Risk Test Score was three score 03/31/2020 Medical Established Patient with Karla Amber INTERNET TECHNOLOGY MANAGER 03/31/2020 Overweight Medical Established Patient with Karla Amber [facility] 03/31/2020 Z68.25 - Body mass index [BM I] 25.0-25.9, adult Medical Established Patient with Karla Amber [facility] 03/31/2020 Encounter for Immunization Nurse Visit with Gary Clark [facility] 03/14/2020 Body mass index Medical Established Patient with Karlajulius Clark INTERNET TECHNOLOGY MANAGER 02/26/2020 Overweight Medical Established Patient with Karlajulius Floresen INTERNET TECHNOLOGY MANAGER 02/26/2020 Overweight Medical Established Patient with Karla Amber INTERNET TECHNOLOGY MANAGER 07/23/2019 Z68.27 - Body mass index (BM I) 27.0-27.9, adult Medical Established Patient with Karlajulius Floresen INTERNET TECHNOLOGY MANAGER 07/23/2019 Occasional asthma CPS- Asthma Clinic- F/U with Karlajulius Floresen INTERNET TECHNOLOGY MANAGER 06/05/2019 Overweight CPS- Asthma Clinic- F/U with Akrlajulius Floresen INTERNET TECHNOLOGY MANAGER 06/05/2019 Z68.27 - Body mass index (BM I) 27.0-27.9 adult CPS- Asthma Clinic- F/U with Karlajulius Floresen INTERNET TECHNOLOGY MANAGER 06/05/2019 Occasional asthma CPS Med Review with Karla Amber INTERNET TECHNOLOGY MANAGER 04/23/2019 Overweight CPS Med Review with Karlajulius Floresen [facility] 04/23/2019 Z68.27 - Body mass index (BM I) 27.0-27.9 adult CPS Med Review with Karlajulius Clark INTERNET TECHNOLOGY MANAGER 04/23/2019 Acute pharyngitis Medical Established Patient with Brandy Warren INTERNET TECHNOLOGY MANAGER 04/15/2019 Asthmatic bronchitis with ac [place] exacerbation Medical Established Patient with Brandy Warren INTERNET TECHNOLOGY MANAGER 04/15/2019 Fagerstrom Score was two Medical Establi shed Patient with Brandy Warren INTERNET TECHNOLOGY MANAGER 04/15/2019 PHQ-9: total score was three 04/15/2019 Medical Established Patient with Brandy Warren [facility] 04/15/2019 Body mass index Medical Established Patient with Karla Clark [facility] 03/05/2019 Diabetes Risk Test Score was three score Medical Established Patient with Karla Clark [facility] 03/05/2019 Overweight Medical Established Patient with Karla Amber [facility] 03/05/2019 Z68.28 - Body mass index (BM I) 28.0-28.9, adult Medical Established Patient with Karla Amber INTERNET TECHNOLOGY MANAGER 12/22/2018 Assess routine adult history and physical (18 - 64 yrs) Medical Established Patient with Karla Amber INTERNET TECHNOLOGY MANAGER 11/06/2018 Overweight Medical Established Patient with Karla Amber INTERNET TECHNOLOGY MANAGER 11/06/2018 Z68.28 - Body mass index (BM I) 28.0-28.9, adult Medical Established Patient with Karla Amber INTERNET TECHNOLOGY MANAGER 11/06/2018 Assess dysphagia Medical Established Patient with Karla Amber INTERNET TECHNOLOGY MANAGER 09/11/2018 Assess routine adult history and physical (18 - 64 yrs) Medical Established Patient with Karla Amber INTERNET TECHNOLOGY MANAGER 09/11/2018 Assess primary insomnia with sleep apnea Medical Established Patient with Karla Clark INTERNET TECHNOLOGY MANAGER 09/04/2018 Assess routine adult history and physical (18 - 64 yrs) Medical Established Patient with Karla Clark INTERNET TECHNOLOGY MANAGER 09/04/2018 Overweight Medical Established Patient with Karla Clark CNP 09/04/2018 Z68.29 - Body mass index (BM I) 29.0-29.9, adult Medical Established Patient with Karla Clark INTERNET TECHNOLOGY MANAGER 09/04/2018 Assess vaginal candidiasis Medical Estab lished Patient with Karla Clark CNP 07/31/2018 [facility] Work Phone: Evaluation note* Diagnosis Pre-operative clearance Preoperative examination, unspecified Abnormal EKG Nonspecific abnormal electrocardiogram (ECG) (EKG) History of DE (myocardial infarction) Old myocardial infarction documented in this encounter CHARLY JUAN PABLO [employer] Work Phone: evaluation note Includes: Assessments for all patient encounters Findings Encounter Date [H92.02 - Otalgia, left ear] earache Med ical Established Patient with Karla Clark CNP 06/18/2022 Last Documented On 3 12:11PM ; [facility] [M79.604 - Pain in right leg ] pain in right leg Medical Established Patient with Karla Clark INTERNET TECHNOLOGY MANAGER 06/18/2022 Last Documented On 3 12:11PM ; [facility] [Z68.24 - Body mass index [B DE] 24.0-24.9, adult] assessment of body mass index Medical Established Patient with Karla Clark CNP 06/18/2022 Last Documented On 3 12:11PM ; [facility] Assessment of tobacco use Medical Establ ished Patient with Karla Clark INTERNET TECHNOLOGY MANAGER 06/18/2022 Last Documented On 3 12:11PM ; [facility] Diabetes Risk Test Score was four score 06/18/2022 Medical Established Patient with Karla Clark CNP 06/18/2022 Last Documented On 3 12:11PM ; [facility] Schizoaffective disorder Establ[facility]/20/2022 Last Documented On 2 12:13AM ; [facility] No cough Medical Established Patient with Karla Clark INTERNET TECHNOLOGY MANAGER 12/20/2021 Last Documented On 2 3:12PM ; [facility] Visit for: screening for hum an immunodeficiency virus Medical Established Patient with Karla Clark INTERNET TECHNOLOGY MANAGER 12/20/2021 Last Documented On 2 3:12PM ; [facility] Z68.24 - Body mass index [BM I] 24.0-24.9, adult Medical Established Patient with Karla Clark INTERNET TECHNOLOGY MANAGER 12/20/2021 Last Documented On 2 3:12PM ; [facility] Bipolar disorder NOS BH Established Patient with Yin Feliz [facility] 11/03/2021 Last Documented On 2 7:00PM ; [facility] Bipolar schizoaffective disorder BH Esta blished Patient with Yin Feliz [facility] 11/03/2021 Last Documented On 2 7:00PM ; [facility] PLAN Medical Established Patient with Don Pino MD 11/03/2021 Last Documented On 2 10:40AM ; [facility] Abnormal electrocardiogram Medical Estab lished Patient with Don Pino MD 11/03/2021 Last Documented On 2 10:40AM ; [facility] Z68.24 - Body mass index [BM I] 24.0-24.9, adult Medical Established Patient with Don Pino MD 11/03/2021 Last Documented On 2 10:40AM ; [facility] Cough Medical Established Patient with Karla Clark INTERNET TECHNOLOGY MANAGER 07/28/2021 Last Documented On 2 2:01PM ; [facility] Intervention and counseling on cessation of tobacco use, 3-10 minutes Discussed medication and nicotine replacement for tobacco cessation Medical Established Patient with Karla Clark INTERNET TECHNOLOGY MANAGER 07/28/2021 Last Documented On 2 2:01PM ; [facility] Nicotine dependence Medical Established Patient with Karla Clark INTERNET TECHNOLOGY MANAGER 07/28/2021 Last Documented On 2 2:01PM ; [facility] Z68.24 - Body mass index [BM I] 24.0-24.9, adult Medical Established Patient with Karla Amber INTERNET TECHNOLOGY MANAGER 07/28/2021 Last Documented On 2 2:01PM ; [facility] Assess Colon screening Medical Established Patie nt with Karla Amber INTERNET TECHNOLOGY MANAGER 05/08/2021 Last Documented On 1 10:59AM ; [facility] Diabetes Risk Test Score was four score 05/08/2021 Medical Established Patient with Karla Amber INTERNET TECHNOLOGY MANAGER 05/08/2021 Last Documented On 1 10:59AM ; [facility] Routine adult history and ph ysical (18-64 yrs) without abnormal findings Medical Established Patient with Karla Amber INTERNET TECHNOLOGY MANAGER 05/08/2021 Last Documented On 1 10:59AM ; [facility] Z68.24 - Body mass index [BM I] 24.0-24.9, adult Medical Established Patient with Karla Amber INTERNET TECHNOLOGY MANAGER 05/08/2021 Last Documented On 1 10:59AM ; [facility] Z68.24 - Body mass index [BM I] 24.0-24.9, adult Medical Established Patient with Karla Amber INTERNET TECHNOLOGY MANAGER 06/17/2020 Last Documented On 1 10:30AM ; [facility] Overweight Medical Established Patient with Karla Amber INTERNET TECHNOLOGY MANAGER 06/06/2020 Last Documented On 1 2:06PM ; [facility] Z68.25 - Body mass index [BM I] 25.0-25.9, adult Medical Established Patient with Karla Amber INTERNET TECHNOLOGY MANAGER 06/06/2020 Last Documented On 1 2:06PM ; [facility] Antiasthmatics [facility] Asthma Clinic-New with Karla Amber INTERNET TECHNOLOGY MANAGER 05/06/2020 Last Documented On 0 7:27PM ; [facility] Assessment of tobacco use [facility] Asthma Clinic-New with Karla Amber INTERNET TECHNOLOGY MANAGER 05/06/2020 Last Documented On 0 7:27PM ; [facility] Body mass index [facility] Asthma Clinic-New with Karla Amber INTERNET TECHNOLOGY MANAGER 05/06/2020 Last Documented On 0 7:27PM ; [facility] Chronic obstructive pulmonary disease CP S [facility] Clinic-New with Karla Floresen INTERNET TECHNOLOGY MANAGER 05/06/2020 Last Documented On 0 7:27PM ; [facility] Overweight CPS [facility] Clinic-New with Karla Floresen INTERNET TECHNOLOGY MANAGER 05/06/2020 Last Documented On 0 7:27PM ; [facility] Z11.4 - Encounter for screen ing for human immunodeficiency virus [HIV] CPS [facility]-New with Karla Floresen INTERNET TECHNOLOGY MANAGER 05/06/2020 Last Documented On 0 7:27PM ; [facility] Diabetes Risk Test Score was three score 03/31/2020 Medical Established Patient with Karlajulius Floresen INTERNET TECHNOLOGY MANAGER 03/31/2020 Last Documented On 0 3:22PM ; [facility] Overweight Medical Established Patient with Karlajulius Floresen INTERNET TECHNOLOGY MANAGER 03/31/2020 Last Documented On 0 3:22PM ; [facility] Z68.25 - Body mass index [BM I] 25.0-25.9, adult Medical Established Patient with Karla Clark INTERNET TECHNOLOGY MANAGER 03/31/2020 Last Documented On 0 3:22PM ; [facility] Encounter for Immunization Nurse Visit with Gary Clark INTERNET TECHNOLOGY MANAGER 03/14/2020 Last Documented On 0 5:11PM ; [facility] Body mass index Medical Established Patient with Karla Floresen INTERNET TECHNOLOGY MANAGER 02/26/2020 Last Documented On 0 1:18PM ; [facility] Overweight Medical Established Patient with Karla Floresen INTERNET TECHNOLOGY MANAGER 02/26/2020 Last Documented On 0 1:18PM ; [facility] Overweight Medical Established Patient with Karla Floresen INTERNET TECHNOLOGY MANAGER 07/23/2019 Last Documented On 0 2:33PM ; [facility] Z68.27 - Body mass index (BM I) 27.0-27.9, adult Medical Established Patient with Karla Floresen INTERNET TECHNOLOGY MANAGER 07/23/2019 Last Documented On 0 2:33PM ; [facility] Occasional asthma CPS- Asthma Clinic- F/U with A french Clark INTERNET TECHNOLOGY MANAGER 06/05/2019 Last Documented On 0 7:04PM ; [facility] Overweight CPS- Asthma Clinic- F/U with Alta Clark INTERNET TECHNOLOGY MANAGER 06/05/2019 Last Documented On 0 7:04PM ; [facility] Z68.27 - Body mass index (BM I) 27.0-27.9 adult CPS- Asthma Clinic- F/U with Karla Clark INTERNET TECHNOLOGY MANAGER 06/05/2019 Last Documented On 0 7:04PM ; [facility] Occasional asthma CPS Med Review with Karla dinh INTERNET TECHNOLOGY MANAGER 04/23/2019 Last Documented On 9 4:01PM ; [facility] Overweight CPS Med Review with Karla Clark INTERNET TECHNOLOGY MANAGER 04/23/2019 Last Documented On 9 4:01PM ; [facility] Z68.27 - Body mass index (BM I) 27.0-27.9 adult CPS Med Review with Karla Clark INTERNET TECHNOLOGY MANAGER 04/23/2019 Last Documented On 9 4:01PM ; [facility] Acute pharyngitis Medical Established Patient wi th Brandy Kelley [facility] 04/15/2019 Last Documented On 9 12:31PM ; [facility] Asthmatic bronchitis with ac [place] exacerbation Medical Established Patient with Brandy Warren INTERNET TECHNOLOGY MANAGER 04/15/2019 Last Documented On 9 12:31PM ; [facility] Fagerstrom Score was two Medical Established Pat ient with Brandy Warren INTERNET TECHNOLOGY MANAGER 04/15/2019 Last Documented On 9 12:31PM ; [facility] PHQ-9: total score was three 04/15/2019 Medical Established Patient with Brandy Warren INTERNET TECHNOLOGY MANAGER 04/15/2019 Last Documented On 9 12:31PM ; [facility] Body mass index Medical Established Patient with Karla Clark INTERNET TECHNOLOGY MANAGER 03/05/2019 Last Documented On 9 10:27AM ; [facility] [facility] Diabetes Risk Test Score was three score Medical Established Patient with Karlajulius Floresen INTERNET TECHNOLOGY MANAGER 03/05/2019 Last Documented On 9 10:27AM ; [facility] Overweight Medical Established Patient with Karlajulius Floresen INTERNET TECHNOLOGY MANAGER 03/05/2019 Last Documented On 9 10:27AM ; [facility] Z68.28 - Body mass index (BM I) 28.0-28.9, adult Medical Established Patient with Karla Amber INTERNET TECHNOLOGY MANAGER 12/22/2018 Last Documented On 9 10:32AM ; [facility] Assess routine adult history and physical (18 - 64 yrs) Medical Established Patient with Karla Amber INTERNET TECHNOLOGY MANAGER 11/06/2018 Last Documented On 9 2:26PM ; [facility] Overweight Medical Established Patient with Karla Amber INTERNET TECHNOLOGY MANAGER 11/06/2018 Last Documented On 9 2:26PM ; [facility] Z68.28 - Body mass index (BM I) 28.0-28.9, adult Medical Established Patient with Karla Amber INTERNET TECHNOLOGY MANAGER 11/06/2018 Last Documented On 9 2:26PM ; [facility] Assess dysphagia Medical Established Patient wit h Karla Amber INTERNET TECHNOLOGY MANAGER 09/11/2018 Last Documented On 9 10:53AM ; [facility] Assess routine adult history and physical (18 - 64 yrs) Medical Established Patient with Karla Amber INTERNET TECHNOLOGY MANAGER 09/11/2018 Last Documented On 9 10:53AM ; [facility] Assess primary insomnia with sleep apnea Medical Established Patient with Karla Amber INTERNET TECHNOLOGY MANAGER 09/04/2018 Last Documented On 9 2:23PM ; [facility] Assess routine adult history and physical (18 - 64 yrs) Medical Established Patient with Karla Amber INTERNET TECHNOLOGY MANAGER 09/04/2018 Last Documented On 9 2:23PM ; [facility] Overweight Medical Established Patient with Karla Amber INTERNET TECHNOLOGY MANAGER 09/04/2018 Last Documented On 9 2:23PM ; [facility] Z68.29 - Body mass index (BM I) 29.0-29.9, adult Medical Established Patient with Karla Amber INTERNET TECHNOLOGY MANAGER 09/04/2018 Last Documented On 9 2:23PM ; [facility] Assess vaginal candidiasis Medical Estab lished Patient with Karla Amber INTERNET TECHNOLOGY MANAGER 07/31/2018 Last Documented On 9 2:12PM ; [facility] Work Phone: Evaluation note* Diagnosis Cutaneous candidiasis Candidiasis of skin and nails Screening for malignant neoplasm of cervix Screening for malignant neoplasm of the cervix documented in this encounter CHARLY RANGEL [employer] Work Phone: evaluation note Includes: Assessments for all patient encounters Findings Encounter Date [M25.569 - Pain in unspecifi ed knee] arthralgia of knee / patella / tibia / fibula Medical Established Patient with Karla Clark CNP 08/27/2022 Last Documented On 3 8:56AM ; [facility] [Z68.24 - Body mass index [B DE] 24.0-24.9, adult] assessment of body mass index Medical Established Patient with Karla Clark INTERNET TECHNOLOGY MANAGER 08/27/2022 Last Documented On 3 8:56AM ; [facility] Intervention and counseling on cessation of tobacco use, 3-10 minutes Discussed medication and nicotine replacement for tobacco cessation Medical Established Patient with Karla Clark INTERNET TECHNOLOGY MANAGER 08/27/2022 Last Documented On 3 8:56AM ; [facility] Nicotine dependence Medical Established Patient with Karla Clark INTERNET TECHNOLOGY MANAGER 08/27/2022 Last Documented On 3 8:56AM ; [facility] Visit for routine adult H&P without abnormal findings Medical Established Patient with Karla Clark INTERNET TECHNOLOGY MANAGER 08/27/2022 Last Documented On 3 8:56AM ; [facility] [H92.02 - Otalgia, left ear] earache Med ical Established Patient with Karla Clark INTERNET TECHNOLOGY MANAGER 06/18/2022 Last Documented On 3 12:11PM ; [facility] [M79.604 - Pain in right leg ] pain in right leg Medical Established Patient with Karla Clark INTERNET TECHNOLOGY MANAGER 06/18/2022 Last Documented On 3 12:11PM ; [facility] [Z68.24 - Body mass index [B DE] 24.0-24.9, adult] assessment of body mass index Medical Established Patient with Karla Clark INTERNET TECHNOLOGY MANAGER 06/18/2022 Last Documented On 3 12:11PM ; [facility] Assessment of tobacco use Medical Establ ished Patient with Karla Clark INTERNET TECHNOLOGY MANAGER 06/18/2022 Last Documented On 3 12:11PM ; [facility] Diabetes Risk Test Score was four score 06/18/2022 Medical Established Patient with Karla Amber INTERNET TECHNOLOGY MANAGER 06/18/2022 Last Documented On 3 12:11PM ; [facility] Schizoaffective disorder Established Patient with Yin Feliz LPCC-S 03/20/2022 Last Documented On 2 12:13AM ; [facility] No cough Medical Established Patient with Karla Amber INTERNET TECHNOLOGY MANAGER 12/20/2021 Last Documented On 2 3:12PM ; [facility] Visit for: screening for hum an immunodeficiency virus Medical Established Patient with Karla Amber INTERNET TECHNOLOGY MANAGER 12/20/2021 Last Documented On 2 3:12PM ; [facility] Z68.24 - Body mass index [BM I] 24.0-24.9, adult Medical Established Patient with Karlajulius Floresen INTERNET TECHNOLOGY MANAGER 12/20/2021 Last Documented On 2 3:12PM ; [facility] Bipolar disorder NOS Established Patient with Yin Feliz LPCC-S 11/03/2021 Last Documented On 2 7:00PM ; [facility] Bipolar schizoaffective disorder BH Esta blished Patient with Yin Feliz LPCC-S 11/03/2021 Last Documented On 2 7:00PM ; [facility] PLAN Medical Established Patient with Don Pino MD 11/03/2021 Last Documented On 2 10:40AM ; [facility] Abnormal electrocardiogram Medical Estab lished Patient with Don Pino MD 11/03/2021 Last Documented On 2 10:40AM ; [facility] Z68.24 - Body mass index [BM I] 24.0-24.9, adult Medical Established Patient with Don Pino MD 11/03/2021 Last Documented On 2 10:40AM ; [facility] Cough Medical Established Patient with Karlajulius Floresen INTERNET TECHNOLOGY MANAGER 07/28/2021 Last Documented On 2 2:01PM ; [facility] Intervention and counseling on cessation of tobacco use, 3-10 minutes Discussed medication and nicotine replacement for tobacco cessation Medical Established Patient with Karla Clark INTERNET TECHNOLOGY MANAGER 07/28/2021 Last Documented On 2 2:01PM ; [facility] Nicotine dependence Medical Established Patient with Karla Amber INTERNET TECHNOLOGY MANAGER 07/28/2021 Last Documented On 2 2:01PM ; [facility] Z68.24 - Body mass index [BM I] 24.0-24.9, adult Medical Established Patient with Karla Clark INTERNET TECHNOLOGY MANAGER 07/28/2021 Last Documented On 2 2:01PM ; [facility] Assess Colon screening Medical Established Patie nt with Karla Clark INTERNET TECHNOLOGY MANAGER 05/08/2021 Last Documented On 1 10:59AM ; [facility] Diabetes Risk Test Score was four score 05/08/2021 Medical Established Patient with Karla Clark INTERNET TECHNOLOGY MANAGER 05/08/2021 Last Documented On 1 10:59AM ; [facility] Routine adult history and ph ysical (18-64 yrs) without abnormal findings Medical Established Patient with Karla Clark INTERNET TECHNOLOGY MANAGER 05/08/2021 Last Documented On 1 10:59AM ; [facility] Z68.24 - Body mass index [BM I] 24.0-24.9, adult Medical Established Patient with Karla Clark INTERNET TECHNOLOGY MANAGER 05/08/2021 Last Documented On 1 10:59AM ; [facility] Z68.24 - Body mass index [BM I] 24.0-24.9, adult Medical Established Patient with Karla Clark INTERNET TECHNOLOGY MANAGER 06/17/2020 Last Documented On 1 10:30AM ; [facility] Overweight Medical Established Patient with Karla Amber INTERNET TECHNOLOGY MANAGER 06/06/2020 Last Documented On 1 2:06PM ; [facility] Z68.25 - Body mass index [BM I] 25.0-25.9, adult Medical Established Patient with Karla Amber INTERNET TECHNOLOGY MANAGER 06/06/2020 Last Documented On 1 2:06PM ; [facility] Antiasthmatics [facility]-New with Karla Clark INTERNET TECHNOLOGY MANAGER 05/06/2020 Last Documented On 0 7:27PM ; [facility] Assessment of tobacco use [facility] Clinic-New with Karla Amber INTERNET TECHNOLOGY MANAGER 05/06/2020 Last Documented On 0 7:27PM ; [facility] Body mass index [facility]-New with Karla Amber INTERNET TECHNOLOGY MANAGER 05/06/2020 Last Documented On 0 7:27PM ; [facility] Chronic obstructive pulmonary disease S [facility]-New with Karla Amber INTERNET TECHNOLOGY MANAGER 05/06/2020 Last Documented On 0 7:27PM ; [facility] Overweight [facility] Clinic-New with Karla Amber INTERNET TECHNOLOGY MANAGER 05/06/2020 Last Documented On 0 7:27PM ; [facility] Z11.4 - Encounter for screen ing for human immunodeficiency virus [HIV] [facility] with Karla Amber INTERNET TECHNOLOGY MANAGER 05/06/2020 Last Documented On 0 7:27PM ; [facility] Diabetes Risk Test Score was three score 03/31/2020 Medical Established Patient with Karla Amber INTERNET TECHNOLOGY MANAGER 03/31/2020 Last Documented On 0 3:22PM ; [facility] Overweight Medical Established Patient with Karla Amber INTERNET TECHNOLOGY MANAGER 03/31/2020 Last Documented On 0 3:22PM ; [facility] Z68.25 - Body mass index [BM I] 25.0-25.9, adult Medical Established Patient with Karlajulius Floresen INTERNET TECHNOLOGY MANAGER 03/31/2020 Last Documented On 0 3:22PM ; [facility] Encounter for Immunization Nurse Visit with Gary Clark INTERNET TECHNOLOGY MANAGER 03/14/2020 Last Documented On 0 5:11PM ; [facility] Body mass index Medical Established Patient with Karla Amber INTERNET TECHNOLOGY MANAGER 02/26/2020 Last Documented On 0 1:18PM ; [facility] Overweight Medical Established Patient with Karla Amber INTERNET TECHNOLOGY MANAGER 02/26/2020 Last Documented On 0 1:18PM ; [facility] Overweight Medical Established Patient with Karla Amber INTERNET TECHNOLOGY MANAGER 07/23/2019 Last Documented On 0 2:33PM ; [facility] Z68.27 - Body mass index (BM I) 27.0-27.9, adult Medical Established Patient with Karla Clark INTERNET TECHNOLOGY MANAGER 07/23/2019 Last Documented On 0 2:33PM ; [facility] Occasional asthma C[facility]- [facility] Clinic- F/U with A french Clark INTERNET TECHNOLOGY MANAGER 06/05/2019 Last Documented On 0 7:04PM ; [facility] Overweight C[facility]- [facility]- F/U with Aim julius Clark INTERNET TECHNOLOGY MANAGER 06/05/2019 Last Documented On 0 7:04PM ; [facility] Z68.27 - Body mass index (BM I) 27.0-27.9 adult [facility]- [facility]- F/U with Karla Clark INTERNET TECHNOLOGY MANAGER 06/05/2019 Last Documented On 0 7:04PM ; [facility] Occasional asthma CPS Med Review with Karla dinh INTERNET TECHNOLOGY MANAGER 04/23/2019 Last Documented On 9 4:01PM ; [facility] Overweight CPS Med Review with Karla Clark INTERNET TECHNOLOGY MANAGER 04/23/2019 Last Documented On 9 4:01PM ; [facility] Z68.27 - Body mass index (BM I) 27.0-27.9 adult CPS Med Review with Karla Clark INTERNET TECHNOLOGY MANAGER 04/23/2019 Last Documented On 9 4:01PM ; [facility] Acute pharyngitis Medical Established Patient wi th Brandy Kelley INTERNET TECHNOLOGY MANAGER 04/15/2019 Last Documented On 9 12:31PM ; [facility] Asthmatic bronchitis with ac [place] exacerbation Medical Established Patient with Brandy Warren INTERNET TECHNOLOGY MANAGER 04/15/2019 Last Documented On 9 12:31PM ; [facility] Fagerstrom Score was two Medical Established Pat ient with Brandy Warren INTERNET TECHNOLOGY MANAGER 04/15/2019 Last Documented On 9 12:31PM ; [facility] PHQ-9: total score was three 04/15/2019 Medical Established Patient with Brandy Warren INTERNET TECHNOLOGY MANAGER 04/15/2019 Last Documented On 9 12:31PM ; [facility] Body mass index Medical Established Patient with Karla Floresen INTERNET TECHNOLOGY MANAGER 03/05/2019 Last Documented On 9 10:27AM ; [facility] Diabetes Risk Test Score was three score Medical Established Patient with Karla Amber INTERNET TECHNOLOGY MANAGER 03/05/2019 Last Documented On 9 10:27AM ; [facility] Overweight Medical Established Patient with Karla Amber INTERNET TECHNOLOGY MANAGER 03/05/2019 Last Documented On 9 10:27AM ; [facility] Z68.28 - Body mass index (BM I) 28.0-28.9, adult Medical Established Patient with Karla Amber INTERNET TECHNOLOGY MANAGER 12/22/2018 Last Documented On 9 10:32AM ; [facility] Assess routine adult history and physical (18 - 64 yrs) Medical Established Patient with Karla Amber INTERNET TECHNOLOGY MANAGER 11/06/2018 Last Documented On 9 2:26PM ; [facility] Overweight Medical Established Patient with Karla Amber INTERNET TECHNOLOGY MANAGER 11/06/2018 Last Documented On 9 2:26PM ; [facility] Z68.28 - Body mass index (BM I) 28.0-28.9, adult Medical Established Patient with Karla Amber INTERNET TECHNOLOGY MANAGER 11/06/2018 Last Documented On 9 2:26PM ; [facility] Assess dysphagia Medical Established Patient wit h Karla Amber INTERNET TECHNOLOGY MANAGER 09/11/2018 Last Documented On 9 10:53AM ; [facility] Assess routine adult history and physical (18 - 64 yrs) Medical Established Patient with Karla Amber INTERNET TECHNOLOGY MANAGER 09/11/2018 Last Documented On 9 10:53AM ; [facility] Assess primary insomnia with sleep apnea Medical Established Patient with Karla Amber INTERNET TECHNOLOGY MANAGER 09/04/2018 Last Documented On 9 2:23PM ; [facility] Assess routine adult history and physical (18 - 64 yrs) Medical Established Patient with Karla Amber INTERNET TECHNOLOGY MANAGER 09/04/2018 Last Documented On 9 2:23PM ; [facility] Overweight Medical Established Patient with Karla Amber INTERNET TECHNOLOGY MANAGER 09/04/2018 Last Documented On 9 2:23PM ; [facility] Z68.29 - Body mass index (BM I) 29.0-29.9, adult Medical Established Patient with Karla Amber INTERNET TECHNOLOGY MANAGER 09/04/2018 Last Documented On 9 2:23PM ; [facility] Assess vaginal candidiasis Medical Estab lished Patient with Karla Clark CNP 07/31/2018 Last Documented On 9 2:12PM ; [facility] Work Phone: Evaluation note Includes: Assessments for all patient encounters Findings Encounter Date [M25.569 - Pain in unspecifi ed knee] arthralgia of knee / patella / tibia / fibula Medical Established Patient with Karla Clark CNP 08/27/2022 Last Documented On 3 8:56AM ; [facility] [Z68.24 - Body mass index [B DE] 24.0-24.9, adult] assessment of body mass index Medical Established Patient with Karla Clark CNP 08/27/2022 Last Documented On 3 8:56AM ; [facility] Intervention and counseling on cessation of tobacco use, 3-10 minutes Discussed medication and nicotine replacement for tobacco cessation Medical Established Patient with Karla Clark INTERNET TECHNOLOGY MANAGER 08/27/2022 Last Documented On 3 8:56AM ; [facility] Nicotine dependence Medical Established Patient with Karla Clark CNP 08/27/2022 Last Documented On 3 8:56AM ; [facility] Visit for routine adult H&P without abnormal findings Medical Established Patient with Karla Clark CNP 08/27/2022 Last Documented On 3 8:56AM ; [facility] [H92.02 - Otalgia, left ear] earache Med ical Established Patient with Karla Clark INTERNET TECHNOLOGY MANAGER 06/18/2022 Last Documented On 3 12:11PM ; [facility] [M79.604 - Pain in right leg ] pain in right leg Medical Established Patient with Karla Clark INTERNET TECHNOLOGY MANAGER 06/18/2022 Last Documented On 3 12:11PM ; [facility] [Z68.24 - Body mass index [B DE] 24.0-24.9, adult] assessment of body mass index Medical Established Patient with Karla Clark CNP 06/18/2022 Last Documented On 3 12:11PM ; [facility] Assessment of tobacco use Medical Establ ished Patient with Karla Clark INTERNET TECHNOLOGY MANAGER 06/18/2022 Last Documented On 3 12:11PM ; [facility] Diabetes Risk Test Score was four score 06/18/2022 Medical Established Patient with Karlajulius Floresen INTERNET TECHNOLOGY MANAGER 06/18/2022 Last Documented On 3 12:11PM ; [facility] Schizoaffective disorder Established Patient with Yin Feliz LPCC-S 03/20/2022 Last Documented On 2 12:13AM ; [facility] No cough Medical Established Patient with Karlajulius Floresen INTERNET TECHNOLOGY MANAGER 12/20/2021 Last Documented On 2 3:12PM ; [facility] Visit for: screening for hum an immunodeficiency virus Medical Established Patient with Karlajulius Floresen INTERNET TECHNOLOGY MANAGER 12/20/2021 Last Documented On 2 3:12PM ; [facility] Z68.24 - Body mass index [BM I] 24.0-24.9, adult Medical Established Patient with Karla Clark INTERNET TECHNOLOGY MANAGER 12/20/2021 Last Documented On 2 3:12PM ; [facility] Bipolar disorder NOS Established Patient with Yin Feliz LPCC-S 11/03/2021 Last Documented On 2 7:00PM ; [facility] Bipolar schizoaffective disorder BH Esta blished Patient with Yin Feliz LPCC-S 11/03/2021 Last Documented On 2 7:00PM ; [facility] PLAN Medical Established Patient with Don Pino MD 11/03/2021 Last Documented On 2 10:40AM ; [facility] Abnormal electrocardiogram Medical Estab lished Patient with Don Pino MD 11/03/2021 Last Documented On 2 10:40AM ; [facility] Z68.24 - Body mass index [BM I] 24.0-24.9, adult Medical Established Patient with Don Pino MD 11/03/2021 Last Documented On 2 10:40AM ; [facility] Cough Medical Established Patient with Karla Clark INTERNET TECHNOLOGY MANAGER 07/28/2021 Last Documented On 2 2:01PM ; [facility] Intervention and counseling on cessation of tobacco use, 3-10 minutes Discussed medication and nicotine replacement for tobacco cessation Medical Established Patient with Karla Clark INTERNET TECHNOLOGY MANAGER 07/28/2021 Last Documented On 2 2:01PM ; [facility] Nicotine dependence Medical Established Patient with Karla Amber INTERNET TECHNOLOGY MANAGER 07/28/2021 Last Documented On 2 2:01PM ; [facility] Z68.24 - Body mass index [BM I] 24.0-24.9, adult Medical Established Patient with Karla Amber INTERNET TECHNOLOGY MANAGER 07/28/2021 Last Documented On 2 2:01PM ; [facility] Assess Colon screening Medical Established Patie nt with Karla Amber INTERNET TECHNOLOGY MANAGER 05/08/2021 Last Documented On 1 10:59AM ; [facility] Diabetes Risk Test Score was four score 05/08/2021 Medical Established Patient with Karla Clark INTERNET TECHNOLOGY MANAGER 05/08/2021 Last Documented On 1 10:59AM ; [facility] Routine adult history and ph ysical (18-64 yrs) without abnormal findings Medical Established Patient with Karla Clark INTERNET TECHNOLOGY MANAGER 05/08/2021 Last Documented On 1 10:59AM ; [facility] Z68.24 - Body mass index [BM I] 24.0-24.9, adult Medical Established Patient with Karla Clark INTERNET TECHNOLOGY MANAGER 05/08/2021 Last Documented On 1 10:59AM ; [facility] Z68.24 - Body mass index [BM I] 24.0-24.9, adult Medical Established Patient with Karla Amber INTERNET TECHNOLOGY MANAGER 06/17/2020 Last Documented On 1 10:30AM ; [facility] Overweight Medical Established Patient with Karla Amber INTERNET TECHNOLOGY MANAGER 06/06/2020 Last Documented On 1 2:06PM ; [facility] Z68.25 - Body mass index [BM I] 25.0-25.9, adult Medical Established Patient with Karla Amber INTERNET TECHNOLOGY MANAGER 06/06/2020 Last Documented On 1 2:06PM ; [facility] Antiasthmatics [facility] Asthma Clinic-New with Karla Amber INTERNET TECHNOLOGY MANAGER 05/06/2020 Last Documented On 0 7:27PM ; [facility] Assessment of tobacco use [facility] Asthma Clinic-New with Karla Amber INTERNET TECHNOLOGY MANAGER 05/06/2020 Last Documented On 0 7:27PM ; [facility] Body mass index [facility] Clinic-New with Karla Amber INTERNET TECHNOLOGY MANAGER 05/06/2020 Last Documented On 0 7:27PM ; [facility] Chronic obstructive pulmonary disease CP S [facility]-New with Karla Amber INTERNET TECHNOLOGY MANAGER 05/06/2020 Last Documented On 0 7:27PM ; [facility] Overweight [facility] Asthma Clinic-New with Karla Amber INTERNET TECHNOLOGY MANAGER 05/06/2020 Last Documented On 0 7:27PM ; [facility] Z11.4 - Encounter for screen ing for human immunodeficiency virus [HIV] [facility] Asthma Clinic-New with Karlajulius Floresen INTERNET TECHNOLOGY MANAGER 05/06/2020 Last Documented On 0 7:27PM ; [facility] Diabetes Risk Test Score was three score 03/31/2020 Medical Established Patient with Karla Amber INTERNET TECHNOLOGY MANAGER 03/31/2020 Last Documented On 0 3:22PM ; [facility] Overweight Medical Established Patient with Karal Amber INTERNET TECHNOLOGY MANAGER 03/31/2020 Last Documented On 0 3:22PM ; [facility] Z68.25 - Body mass index [BM I] 25.0-25.9, adult Medical Established Patient with Karlajulius Floresen INTERNET TECHNOLOGY MANAGER 03/31/2020 Last Documented On 0 3:22PM ; [facility] Encounter for Immunization Nurse Visit with Gary Clark INTERNET TECHNOLOGY MANAGER 03/14/2020 Last Documented On 0 5:11PM ; [facility] Body mass index Medical Established Patient with Karla Amber INTERNET TECHNOLOGY MANAGER 02/26/2020 Last Documented On 0 1:18PM ; [facility] Overweight Medical Established Patient with Karla Amber INTERNET TECHNOLOGY MANAGER 02/26/2020 Last Documented On 0 1:18PM ; [facility] Overweight Medical Established Patient with Karla Amber INTERNET TECHNOLOGY MANAGER 07/23/2019 Last Documented On 0 2:33PM ; [facility] Z68.27 - Body mass index (BM I) 27.0-27.9, adult Medical Established Patient with Karla Clark INTERNET TECHNOLOGY MANAGER 07/23/2019 Last Documented On 0 2:33PM ; [facility] Occasional asthma CPS- Asthma Clinic- F/U with A french Clark INTERNET TECHNOLOGY MANAGER 06/05/2019 Last Documented On 0 7:04PM ; [facility] Overweight C[facility]- [facility]- F/U with Aim julius Clark INTERNET TECHNOLOGY MANAGER 06/05/2019 Last Documented On 0 7:04PM ; [facility] Z68.27 - Body mass index (BM I) 27.0-27.9 adult C[facility]- [facility]- F/U with Karla Clark INTERNET TECHNOLOGY MANAGER 06/05/2019 Last Documented On 0 7:04PM ; [facility] Occasional asthma CPS Med Review with Karla dinh INTERNET TECHNOLOGY MANAGER 04/23/2019 Last Documented On 9 4:01PM ; [facility] Overweight CPS Med Review with Karla Clark INTERNET TECHNOLOGY MANAGER 04/23/2019 Last Documented On 9 4:01PM ; [facility] Z68.27 - Body mass index (BM I) 27.0-27.9 adult CPS Med Review with Karla Clark INTERNET TECHNOLOGY MANAGER 04/23/2019 Last Documented On 9 4:01PM ; [facility] Acute pharyngitis Medical Established Patient wi th Brandy Warren INTERNET TECHNOLOGY MANAGER 04/15/2019 Last Documented On 9 12:31PM ; [facility] Asthmatic bronchitis with ac [place] exacerbation Medical Established Patient with Brandy Warren INTERNET TECHNOLOGY MANAGER 04/15/2019 Last Documented On 9 12:31PM ; [facility] Fagerstrom Score was two Medical Established Pat ient with Brandy Warren INTERNET TECHNOLOGY MANAGER 04/15/2019 Last Documented On 9 12:31PM ; [facility] PHQ-9: total score was three 04/15/2019 Medical Established Patient with Brandy Warren INTERNET TECHNOLOGY MANAGER 04/15/2019 Last Documented On 9 12:31PM ; [facility] Body mass index Medical Established Patient with Karla Amber INTERNET TECHNOLOGY MANAGER 03/05/2019 Last Documented On 9 10:27AM ; [facility] Diabetes Risk Test Score was three score Medical Established Patient with Karla Amber INTERNET TECHNOLOGY MANAGER 03/05/2019 Last Documented On 9 10:27AM ; [facility] Overweight Medical Established Patient with Karla Amber INTERNET TECHNOLOGY MANAGER 03/05/2019 Last Documented On 9 10:27AM ; [facility] Z68.28 - Body mass index (BM I) 28.0-28.9, adult Medical Established Patient with Karla Amber INTERNET TECHNOLOGY MANAGER 12/22/2018 Last Documented On 9 10:32AM ; [facility] Assess routine adult history and physical (18 - 64 yrs) Medical Established Patient with Karla Amber INTERNET TECHNOLOGY MANAGER 11/06/2018 Last Documented On 9 2:26PM ; [facility] Overweight Medical Established Patient with Karla Amber INTERNET TECHNOLOGY MANAGER 11/06/2018 Last Documented On 9 2:26PM ; [facility] Z68.28 - Body mass index (BM I) 28.0-28.9, adult Medical Established Patient with Karla Amber INTERNET TECHNOLOGY MANAGER 11/06/2018 Last Documented On 9 2:26PM ; [facility] Assess dysphagia Medical Established Patient wit h Karla Amber INTERNET TECHNOLOGY MANAGER 09/11/2018 Last Documented On 9 10:53AM ; [facility] Assess routine adult history and physical (18 - 64 yrs) Medical Established Patient with Karla Amber INTERNET TECHNOLOGY MANAGER 09/11/2018 Last Documented On 9 10:53AM ; [facility] Assess primary insomnia with sleep apnea Medical Established Patient with Karla Amber INTERNET TECHNOLOGY MANAGER 09/04/2018 Last Documented On 9 2:23PM ; [facility] Assess routine adult history and physical (18 - 64 yrs) Medical Established Patient with Karla Amber INTERNET TECHNOLOGY MANAGER 09/04/2018 Last Documented On 9 2:23PM ; [facility] Overweight Medical Established Patient with Karla Amber INTERNET TECHNOLOGY MANAGER 09/04/2018 Last Documented On 9 2:23PM ; [facility] Z68.29 - Body mass index (BM I) 29.0-29.9, adult Medical Established Patient with Karla Clark INTERNET TECHNOLOGY MANAGER 09/04/2018 Last Documented On 9 2:23PM ; [facility] Assess vaginal candidiasis Medical Estab lished Patient with Karla Clark INTERNET TECHNOLOGY MANAGER 07/31/2018 Last Documented On 9 2:12PM ; [facility] Work Phone: Evaluation note Includes: Assessments for all patient encounters Findings Encounter Date [M25.569 - Pain in unspecifi ed knee] arthralgia of knee / patella / tibia / fibula Medical Established Patient with Karla Clark INTERNET TECHNOLOGY MANAGER 08/27/2022 Last Documented On 3 9:20AM ; [facility] [Z68.24 - Body mass index [B DE] 24.0-24.9, adult] assessment of body mass index Medical Established Patient with Karla Clark INTERNET TECHNOLOGY MANAGER 08/27/2022 Last Documented On 3 9:20AM ; [facility] Intervention and counseling on cessation of tobacco use, 3-10 minutes Discussed medication and nicotine replacement for tobacco cessation Medical Established Patient with Karla Clark INTERNET TECHNOLOGY MANAGER 08/27/2022 Last Documented On 3 9:20AM ; [facility] Nicotine dependence Medical Established Patient with Karla Clark INTERNET TECHNOLOGY MANAGER 08/27/2022 Last Documented On 3 9:20AM ; [facility] Visit for routine adult H&P without abnormal findings Medical Established Patient with Karla Clark INTERNET TECHNOLOGY MANAGER 08/27/2022 Last Documented On 3 9:20AM ; [facility] [H92.02 - Otalgia, left ear] earache Med ical Established Patient with Karla Clark INTERNET TECHNOLOGY MANAGER 06/18/2022 Last Documented On 3 12:11PM ; [facility] [M79.604 - Pain in right leg ] pain in right leg Medical Established Patient with Karla Clark INTERNET TECHNOLOGY MANAGER 06/18/2022 Last Documented On 3 12:11PM ; [facility] [Z68.24 - Body mass index [B DE] 24.0-24.9, adult] assessment of body mass index Medical Established Patient with Karlajulius Clark INTERNET TECHNOLOGY MANAGER 06/18/2022 Last Documented On 3 12:11PM ; [facility] Assessment of tobacco use Medical Establ ished Patient with Karla Amber INTERNET TECHNOLOGY MANAGER 06/18/2022 Last Documented On 3 12:11PM ; [facility] Diabetes Risk Test Score was four score 06/18/2022 Medical Established Patient with Karla Amber INTERNET TECHNOLOGY MANAGER 06/18/2022 Last Documented On 3 12:11PM ; [facility] Schizoaffective disorder Established Patient with Yin Feliz LPCC-S 03/20/2022 Last Documented On 2 12:13AM ; [facility] No cough Medical Established Patient with Karlajulius Floresen INTERNET TECHNOLOGY MANAGER 12/20/2021 Last Documented On 2 3:12PM ; [facility] Visit for: screening for hum an immunodeficiency virus Medical Established Patient with Karla Amber INTERNET TECHNOLOGY MANAGER 12/20/2021 Last Documented On 2 3:12PM ; [facility] Z68.24 - Body mass index [BM I] 24.0-24.9, adult Medical Established Patient with Karlajulius Floresen INTERNET TECHNOLOGY MANAGER 12/20/2021 Last Documented On 2 3:12PM ; [facility] Bipolar disorder NOS BH Established Patient with Yin Feliz LPCC-S 11/03/2021 Last Documented On 2 7:00PM ; [facility] Bipolar schizoaffective disorder BH Esta blished Patient with Yin Feliz LPCC-S 11/03/2021 Last Documented On 2 7:00PM ; [facility] PLAN Medical Established Patient with Don Pino MD 11/03/2021 Last Documented On 2 10:40AM ; [facility] Abnormal electrocardiogram Medical Estab lished Patient with Don Pino MD 11/03/2021 Last Documented On 2 10:40AM ; [facility] Z68.24 - Body mass index [BM I] 24.0-24.9, adult Medical Established Patient with Don Pino MD 11/03/2021 Last Documented On 2 10:40AM ; [facility] Cough Medical Established Patient with Karlajulius Clark INTERNET TECHNOLOGY MANAGER 07/28/2021 Last Documented On 2 2:01PM ; [facility] Intervention and counseling on cessation of tobacco use, 3-10 minutes Discussed medication and nicotine replacement for tobacco cessation Medical Established Patient with Karla Amber INTERNET TECHNOLOGY MANAGER 07/28/2021 Last Documented On 2 2:01PM ; [facility] Nicotine dependence Medical Established Patient with Karla Amber INTERNET TECHNOLOGY MANAGER 07/28/2021 Last Documented On 2 2:01PM ; [facility] Z68.24 - Body mass index [BM I] 24.0-24.9, adult Medical Established Patient with Karla Amber INTERNET TECHNOLOGY MANAGER 07/28/2021 Last Documented On 2 2:01PM ; [facility] Assess Colon screening Medical Established Patie nt with Karla Clark INTERNET TECHNOLOGY MANAGER 05/08/2021 Last Documented On 1 10:59AM ; [facility] Diabetes Risk Test Score was four score 05/08/2021 Medical Established Patient with Karla Amber INTERNET TECHNOLOGY MANAGER 05/08/2021 Last Documented On 1 10:59AM ; [facility] Routine adult history and ph ysical (18-64 yrs) without abnormal findings Medical Established Patient with Karla Amber INTERNET TECHNOLOGY MANAGER 05/08/2021 Last Documented On 1 10:59AM ; [facility] Z68.24 - Body mass index [BM I] 24.0-24.9, adult Medical Established Patient with Karla Amber INTERNET TECHNOLOGY MANAGER 05/08/2021 Last Documented On 1 10:59AM ; [facility] Z68.24 - Body mass index [BM I] 24.0-24.9, adult Medical Established Patient with Karla Amber INTERNET TECHNOLOGY MANAGER 06/17/2020 Last Documented On 1 10:30AM ; [facility] Overweight Medical Established Patient with Karla Amber INTERNET TECHNOLOGY MANAGER 06/06/2020 Last Documented On 1 2:06PM ; [facility] Z68.25 - Body mass index [BM I] 25.0-25.9, adult Medical Established Patient with Karla Clark INTERNET TECHNOLOGY MANAGER 06/06/2020 Last Documented On 1 2:06PM ; [facility] Antiasthmatics [facility] Asthma Clinic-New with Karla Amber INTERNET TECHNOLOGY MANAGER 05/06/2020 Last Documented On 0 7:27PM ; [facility] Assessment of tobacco use [facility] Asthma Clinic-New with Karla Amber INTERNET TECHNOLOGY MANAGER 05/06/2020 Last Documented On 0 7:27PM ; [facility] Body mass index [facility] Asthma Clinic-New with Karla Amber INTERNET TECHNOLOGY MANAGER 05/06/2020 Last Documented On 0 7:27PM ; [facility] Chronic obstructive pulmonary disease S [facility]-New with Karla Amber INTERNET TECHNOLOGY MANAGER 05/06/2020 Last Documented On 0 7:27PM ; [facility] Overweight [facility] Asthma Clinic-New with Karlajulius Floresen INTERNET TECHNOLOGY MANAGER 05/06/2020 Last Documented On 0 7:27PM ; [facility] Z11.4 - Encounter for screen ing for human immunodeficiency virus [HIV] [facility] Asthma Clinic-New with Karlajulius Floresen INTERNET TECHNOLOGY MANAGER 05/06/2020 Last Documented On 0 7:27PM ; [facility] Diabetes Risk Test Score was three score 03/31/2020 Medical Established Patient with Karla Floresen INTERNET TECHNOLOGY MANAGER 03/31/2020 Last Documented On 0 3:22PM ; [facility] Overweight Medical Established Patient with Karlajulius Floresen INTERNET TECHNOLOGY MANAGER 03/31/2020 Last Documented On 0 3:22PM ; [facility] Z68.25 - Body mass index [BM I] 25.0-25.9, adult Medical Established Patient with Karla Floresen INTERNET TECHNOLOGY MANAGER 03/31/2020 Last Documented On 0 3:22PM ; [facility] Encounter for Immunization Nurse Visit with Gary Clark INTERNET TECHNOLOGY MANAGER 03/14/2020 Last Documented On 0 5:11PM ; [facility] Body mass index Medical Established Patient with Karlajulius Floresen INTERNET TECHNOLOGY MANAGER 02/26/2020 Last Documented On 0 1:18PM ; [facility] Overweight Medical Established Patient with Karla Amber INTERNET TECHNOLOGY MANAGER 02/26/2020 Last Documented On 0 1:18PM ; [facility] Overweight Medical Established Patient with Karlajulius Floresen INTERNET TECHNOLOGY MANAGER 07/23/2019 Last Documented On 0 2:33PM ; [facility] Z68.27 - Body mass index (BM I) 27.0-27.9, adult Medical Established Patient with Karla Floresen INTERNET TECHNOLOGY MANAGER 07/23/2019 Last Documented On 0 2:33PM ; [facility] Occasional asthma CPS- Asthma Clinic- F/U with A french Clark INTERNET TECHNOLOGY MANAGER 06/05/2019 Last Documented On 0 7:04PM ; [facility] Overweight CPS- [facility]- F/U with Aim julius Floresen INTERNET TECHNOLOGY MANAGER 06/05/2019 Last Documented On 0 7:04PM ; [facility] Z68.27 - Body mass index (BM I) 27.0-27.9 adult CPS- Asthma Clinic- F/U with Karla Clark INTERNET TECHNOLOGY MANAGER 06/05/2019 Last Documented On 0 7:04PM ; [facility] Occasional asthma CPS Med Review with Karla dinh INTERNET TECHNOLOGY MANAGER 04/23/2019 Last Documented On 9 4:01PM ; [facility] Overweight CPS Med Review with Karla Clark INTERNET TECHNOLOGY MANAGER 04/23/2019 Last Documented On 9 4:01PM ; [facility] Z68.27 - Body mass index (BM I) 27.0-27.9 adult CPS Med Review with Karla Clark INTERNET TECHNOLOGY MANAGER 04/23/2019 Last Documented On 9 4:01PM ; [facility] Acute pharyngitis Medical Established Patient wi th Brandy Kelley INTERNET TECHNOLOGY MANAGER 04/15/2019 Last Documented On 9 12:31PM ; [facility] Asthmatic bronchitis with ac [place] exacerbation Medical Established Patient with Brandy Warren INTERNET TECHNOLOGY MANAGER 04/15/2019 Last Documented On 9 12:31PM ; [facility] Fagerstrom Score was two Medical Established Pat ient with Brandy Warren INTERNET TECHNOLOGY MANAGER 04/15/2019 Last Documented On 9 12:31PM ; [facility] PHQ-9: total score was three 04/15/2019 Medical Established Patient with Brandy Kelley INTERNET TECHNOLOGY MANAGER 04/15/2019 Last Documented On 9 12:31PM ; [facility] Body mass index Medical Established Patient with Karla Clark INTERNET TECHNOLOGY MANAGER 03/05/2019 Last Documented On 9 10:27AM ; [facility] Diabetes Risk Test Score was three score Medical Established Patient with Karla Amber INTERNET TECHNOLOGY MANAGER 03/05/2019 Last Documented On 9 10:27AM ; [facility] Overweight Medical Established Patient with Karla Amber INTERNET TECHNOLOGY MANAGER 03/05/2019 Last Documented On 9 10:27AM ; [facility] Z68.28 - Body mass index (BM I) 28.0-28.9, adult Medical Established Patient with Karlajulius Floresen INTERNET TECHNOLOGY MANAGER 12/22/2018 Last Documented On 9 10:32AM ; [facility] Assess routine adult history and physical (18 - 64 yrs) Medical Established Patient with Karla Amber INTERNET TECHNOLOGY MANAGER 11/06/2018 Last Documented On 9 2:26PM ; [facility] Overweight Medical Established Patient with Karla Amber INTERNET TECHNOLOGY MANAGER 11/06/2018 Last Documented On 9 2:26PM ; [facility] Z68.28 - Body mass index (BM I) 28.0-28.9, adult Medical Established Patient with Karla Amber INTERNET TECHNOLOGY MANAGER 11/06/2018 Last Documented On 9 2:26PM ; [facility] Assess dysphagia Medical Established Patient wit h Karla Floresen INTERNET TECHNOLOGY MANAGER 09/11/2018 Last Documented On 9 10:53AM ; [facility] Assess routine adult history and physical (18 - 64 yrs) Medical Established Patient with Karla Amber INTERNET TECHNOLOGY MANAGER 09/11/2018 Last Documented On 9 10:53AM ; [facility] Assess primary insomnia with sleep apnea Medical Established Patient with Karla Amber INTERNET TECHNOLOGY MANAGER 09/04/2018 Last Documented On 9 2:23PM ; [facility] Assess routine adult history and physical (18 - 64 yrs) Medical Established Patient with Karla Amber INTERNET TECHNOLOGY MANAGER 09/04/2018 Last Documented On 9 2:23PM ; [facility] Overweight Medical Established Patient with Karla Amber INTERNET TECHNOLOGY MANAGER 09/04/2018 Last Documented On 9 2:23PM ; [facility] Z68.29 - Body mass index (BM I) 29.0-29.9, adult Medical Established Patient with Karlajulius Clark INTERNET TECHNOLOGY MANAGER 09/04/2018 Last Documented On 9 2:23PM ; [facility] Assess vaginal candidiasis Medical Estab lished Patient with Kalra Amber INTERNET TECHNOLOGY MANAGER 07/31/2018 Last Documented On 9 2:12PM ; [facility] Work Phone: Evaluation noteNo assessment information available [facility] Work Phone: Evaluation noteNo InformationNoNew [facility] Other Evaluation note Includes: Assessments for all patient encounters Findings Encounter Date [J20.9 - Acute bronchitis, unspecified] acute bronchitis Medical Established Patient with Karla Clark INTERNET TECHNOLOGY MANAGER 11/19/2022 Last Documented On 3 10:15AM ; [facility] [M79.621 - Pain in right upp er arm] pain in upper arm Medical Established Patient with Karla Amber INTERNET TECHNOLOGY MANAGER 11/19/2022 Last Documented On 3 10:15AM ; [facility] [Z68.23 - Body mass index [B DE] 23.0-23.9, adult] assessment of body mass index Medical Established Patient with Karla Clark INTERNET TECHNOLOGY MANAGER 11/19/2022 Last Documented On 3 10:15AM ; [facility] [M79.601 - Pain in right arm ] pain in right arm Medical Established Patient with Karla Amber INTERNET TECHNOLOGY MANAGER 09/18/2022 Last Documented On 3 2:33PM ; [facility] [Z68.24 - Body mass index [B DE] 24.0-24.9, adult] assessment of body mass index Medical Established Patient with Karla Amber INTERNET TECHNOLOGY MANAGER 09/18/2022 Last Documented On 3 2:33PM ; [facility] Assessment of tobacco use Medical Establ ished Patient with Karla Amber INTERNET TECHNOLOGY MANAGER 09/18/2022 Last Documented On 3 2:33PM ; [facility] [M25.569 - Pain in unspecifi ed knee] arthralgia of knee / patella / tibia / fibula Medical Established Patient with Karla Clark CNP 08/27/2022 Last Documented On 3 9:20AM ; [facility] [Z68.24 - Body mass index [B DE] 24.0-24.9, adult] assessment of body mass index Medical Established Patient with Karla Clark INTERNET TECHNOLOGY MANAGER 08/27/2022 Last Documented On 3 9:20AM ; [facility] Intervention and counseling on cessation of tobacco use, 3-10 minutes Discussed medication and nicotine replacement for tobacco cessation Medical Established Patient with Karla Clark CNP 08/27/2022 Last Documented On 3 9:20AM ; [facility] Nicotine dependence Medical Established Patient with Karla Clark CNP 08/27/2022 Last Documented On 3 9:20AM ; [facility] Visit for routine adult H&P without abnormal findings Medical Established Patient with Karla Clark CNP 08/27/2022 Last Documented On 3 9:20AM ; [facility] [H92.02 - Otalgia, left ear] earache Med ical Established Patient with Karla Clark CNP 06/18/2022 Last Documented On 3 12:11PM ; [facility] [M79.604 - Pain in right leg ] pain in right leg Medical Established Patient with Karla Clark INTERNET TECHNOLOGY MANAGER 06/18/2022 Last Documented On 3 12:11PM ; [facility] [Z68.24 - Body mass index [B DE] 24.0-24.9, adult] assessment of body mass index Medical Established Patient with Karla Clark INTERNET TECHNOLOGY MANAGER 06/18/2022 Last Documented On 3 12:11PM ; [facility] Assessment of tobacco use Medical Establ ished Patient with Karla Clark CNP 06/18/2022 Last Documented On 3 12:11PM ; [facility] Diabetes Risk Test Score was four score 06/18/2022 Medical Established Patient with Karlajulius Clark INTERNET TECHNOLOGY MANAGER 06/18/2022 Last Documented On 3 12:11PM ; [facility] Schizoaffective disorder Established Patient with Yin Feliz LPCC-S 03/20/2022 Last Documented On 2 12:13AM ; [facility] No cough Medical Established Patient with Karla Amber INTERNET TECHNOLOGY MANAGER 12/20/2021 Last Documented On 2 3:12PM ; [facility] Visit for: screening for hum an immunodeficiency virus Medical Established Patient with Karla Amber INTERNET TECHNOLOGY MANAGER 12/20/2021 Last Documented On 2 3:12PM ; [facility] Z68.24 - Body mass index [BM I] 24.0-24.9, adult Medical Established Patient with Karlajulius Floresen INTERNET TECHNOLOGY MANAGER 12/20/2021 Last Documented On 2 3:12PM ; [facility] Bipolar disorder NOS BH Established Patient with Yin Feliz LPCC-S 11/03/2021 Last Documented On 2 7:00PM ; [facility] Bipolar schizoaffective disorder BH Esta blished Patient with Yin Feliz LPCC-S 11/03/2021 Last Documented On 2 7:00PM ; [facility] PLAN Medical Established Patient with Don Pino MD 11/03/2021 Last Documented On 2 10:40AM ; [facility] Abnormal electrocardiogram Medical Estab lished Patient with oDn Pino MD 11/03/2021 Last Documented On 2 10:40AM ; [facility] Z68.24 - Body mass index [BM I] 24.0-24.9, adult Medical Established Patient with Don Pino MD 11/03/2021 Last Documented On 2 10:40AM ; [facility] Cough Medical Established Patient with Karlajulius Clark INTERNET TECHNOLOGY MANAGER 07/28/2021 Last Documented On 2 2:01PM ; [facility] Intervention and counseling on cessation of tobacco use, 3-10 minutes Discussed medication and nicotine replacement for tobacco cessation Medical Established Patient with Karlajulius Floresen INTERNET TECHNOLOGY MANAGER 07/28/2021 Last Documented On 2 2:01PM ; [facility] Nicotine dependence Medical Established Patient with Karla Amber INTERNET TECHNOLOGY MANAGER 07/28/2021 Last Documented On 2 2:01PM ; [facility] Z68.24 - Body mass index [BM I] 24.0-24.9, adult Medical Established Patient with Karla Amber INTERNET TECHNOLOGY MANAGER 07/28/2021 Last Documented On 2 2:01PM ; [facility] Assess Colon screening Medical Established Patie nt with Karla Amber INTERNET TECHNOLOGY MANAGER 05/08/2021 Last Documented On 1 10:59AM ; [facility] Diabetes Risk Test Score was four score 05/08/2021 Medical Established Patient with Karla Amber INTERNET TECHNOLOGY MANAGER 05/08/2021 Last Documented On 1 10:59AM ; [facility] Routine adult history and ph ysical (18-64 yrs) without abnormal findings Medical Established Patient with Karla Amber INTERNET TECHNOLOGY MANAGER 05/08/2021 Last Documented On 1 10:59AM ; [facility] Z68.24 - Body mass index [BM I] 24.0-24.9, adult Medical Established Patient with Karla Amber INTERNET TECHNOLOGY MANAGER 05/08/2021 Last Documented On 1 10:59AM ; [facility] Z68.24 - Body mass index [BM I] 24.0-24.9, adult Medical Established Patient with Karla Amber INTERNET TECHNOLOGY MANAGER 06/17/2020 Last Documented On 1 10:30AM ; [facility] Overweight Medical Established Patient with Karla Amber INTERNET TECHNOLOGY MANAGER 06/06/2020 Last Documented On 1 2:06PM ; [facility] Z68.25 - Body mass index [BM I] 25.0-25.9, adult Medical Established Patient with Karla Amber INTERNET TECHNOLOGY MANAGER 06/06/2020 Last Documented On 1 2:06PM ; [facility] Antiasthmatics [facility] Asthma Clinic-New with Karlajulius Clark INTERNET TECHNOLOGY MANAGER 05/06/2020 Last Documented On 0 7:27PM ; [facility] Assessment of tobacco use CPS Ast[facility] Clinic-New with Karla Amber INTERNET TECHNOLOGY MANAGER 05/06/2020 Last Documented On 0 7:27PM ; [facility] Body mass index CPS [facility] Clinic-New with Karla Amber INTERNET TECHNOLOGY MANAGER 05/06/2020 Last Documented On 0 7:27PM ; [facility] Chronic obstructive pulmonary disease CP S [facility]-New with Karla Amber INTERNET TECHNOLOGY MANAGER 05/06/2020 Last Documented On 0 7:27PM ; [facility] Overweight CPS [facility] Clinic-New with Karla Amber INTERNET TECHNOLOGY MANAGER 05/06/2020 Last Documented On 0 7:27PM ; [facility] Z11.4 - Encounter for screen ing for human immunodeficiency virus [HIV] CPS [facility]-New with Karla Amber INTERNET TECHNOLOGY MANAGER 05/06/2020 Last Documented On 0 7:27PM ; [facility] [facility] Diabetes Risk Test Score was three score 03/31/2020 Medical Established Patient with Karla Amber INTERNET TECHNOLOGY MANAGER 03/31/2020 Last Documented On 0 3:22PM ; [facility] Overweight Medical Established Patient with Karla Amber INTERNET TECHNOLOGY MANAGER 03/31/2020 Last Documented On 0 3:22PM ; [facility] Z68.25 - Body mass index [BM I] 25.0-25.9, adult Medical Established Patient with Karla Amber INTERNET TECHNOLOGY MANAGER 03/31/2020 Last Documented On 0 3:22PM ; [facility] Encounter for Immunization Nurse Visit with Gary Clark INTERNET TECHNOLOGY MANAGER 03/14/2020 Last Documented On 0 5:11PM ; [facility] Body mass index Medical Established Patient with Karla Amber INTERNET TECHNOLOGY MANAGER 02/26/2020 Last Documented On 0 1:18PM ; [facility] Overweight Medical Established Patient with Karla Amber INTERNET TECHNOLOGY MANAGER 02/26/2020 Last Documented On 0 1:18PM ; [facility] Overweight Medical Established Patient with Karla Amber INTERNET TECHNOLOGY MANAGER 07/23/2019 Last Documented On 0 2:33PM ; [facility] Z68.27 - Body mass index (BM I) 27.0-27.9, adult Medical Established Patient with Karla Amber INTERNET TECHNOLOGY MANAGER 07/23/2019 Last Documented On 0 2:33PM ; [facility] Occasional asthma CPS- [facility]- F/U with A french Clark INTERNET TECHNOLOGY MANAGER 06/05/2019 Last Documented On 0 7:04PM ; [facility] Overweight CPS- [facility]- F/U with Alta Clark INTERNET TECHNOLOGY MANAGER 06/05/2019 Last Documented On 0 7:04PM ; [facility] Z68.27 - Body mass index (BM I) 27.0-27.9 adult CPS- [facility]- F/U with Karla Floresen INTERNET TECHNOLOGY MANAGER 06/05/2019 Last Documented On 0 7:04PM ; [facility] Occasional asthma CPS Med Review with Karla Sandra dinh INTERNET TECHNOLOGY MANAGER 04/23/2019 Last Documented On 9 4:01PM ; [facility] Overweight CPS Med Review with Karla Amber INTERNET TECHNOLOGY MANAGER 04/23/2019 Last Documented On 9 4:01PM ; [facility] Z68.27 - Body mass index (BM I) 27.0-27.9 adult CPS Med Review with Karla Floresen INTERNET TECHNOLOGY MANAGER 04/23/2019 Last Documented On 9 4:01PM ; [facility] Acute pharyngitis Medical Established Patient wi th Brandy Kelley INTERNET TECHNOLOGY MANAGER 04/15/2019 Last Documented On 9 12:31PM ; [facility] Asthmatic bronchitis with ac [place] exacerbation Medical Established Patient with Brandy Warren INTERNET TECHNOLOGY MANAGER 04/15/2019 Last Documented On 9 12:31PM ; [facility] Fagerstrom Score was two Medical Established Pat ient with Brandy Warren INTERNET TECHNOLOGY MANAGER 04/15/2019 Last Documented On 9 12:31PM ; [facility] PHQ-9: total score was three 04/15/2019 Medical Established Patient with Brandy Warren INTERNET TECHNOLOGY MANAGER 04/15/2019 Last Documented On 9 12:31PM ; [facility] Body mass index Medical Established Patient with Karla Clark INTERNET TECHNOLOGY MANAGER 03/05/2019 Last Documented On 9 10:27AM ; [facility] Diabetes Risk Test Score was three score Medical Established Patient with Karla Clark INTERNET TECHNOLOGY MANAGER 03/05/2019 Last Documented On 9 10:27AM ; [facility] Overweight Medical Established Patient with Karla Amber INTERNET TECHNOLOGY MANAGER 03/05/2019 Last Documented On 9 10:27AM ; [facility] Z68.28 - Body mass index (BM I) 28.0-28.9, adult Medical Established Patient with Karla Amber INTERNET TECHNOLOGY MANAGER 12/22/2018 Last Documented On 9 10:32AM ; [facility] Assess routine adult history and physical (18 - 64 yrs) Medical Established Patient with Karla Amber INTERNET TECHNOLOGY MANAGER 11/06/2018 Last Documented On 9 2:26PM ; [facility] Overweight Medical Established Patient with Karla Amber INTERNET TECHNOLOGY MANAGER 11/06/2018 Last Documented On 9 2:26PM ; [facility] Z68.28 - Body mass index (BM I) 28.0-28.9, adult Medical Established Patient with Karla Amber INTERNET TECHNOLOGY MANAGER 11/06/2018 Last Documented On 9 2:26PM ; [facility] Assess dysphagia Medical Established Patient wit h Karla Amber INTERNET TECHNOLOGY MANAGER 09/11/2018 Last Documented On 9 10:53AM ; [facility] Assess routine adult history and physical (18 - 64 yrs) Medical Established Patient with Karla Amber INTERNET TECHNOLOGY MANAGER 09/11/2018 Last Documented On 9 10:53AM ; [facility] Assess primary insomnia with sleep apnea Medical Established Patient with Karla Amber INTERNET TECHNOLOGY MANAGER 09/04/2018 Last Documented On 9 2:23PM ; [facility] Assess routine adult history and physical (18 - 64 yrs) Medical Established Patient with Karla Amber INTERNET TECHNOLOGY MANAGER 09/04/2018 Last Documented On 9 2:23PM ; [facility] Overweight Medical Established Patient with Karla Amber INTERNET TECHNOLOGY MANAGER 09/04/2018 Last Documented On 9 2:23PM ; [facility] Z68.29 - Body mass index (BM I) 29.0-29.9, adult Medical Established Patient with Karla Amber INTERNET TECHNOLOGY MANAGER 09/04/2018 Last Documented On 9 2:23PM ; [facility] Assess vaginal candidiasis Medical Estab lished Patient with Karla Clark INTERNET TECHNOLOGY MANAGER 07/31/2018 Last Documented On 9 2:12PM ; [facility] Work Phone: Evaluation note Includes: Assessments for all patient encounters Findings Encounter Date [Z12.39 - Encounter for othe r screening for malignant neoplasm of breast] visit for: screening for malignant breast neoplasm Medical Established Patient with Aaron Whitaker INTERNET TECHNOLOGY MANAGER 02/28/2023 Last Documented On 3 9:51AM ; [facility] [Z68.24 - Body mass index [B DE] 24.0-24.9, adult] assessment of body mass index Medical Established Patient with Aaron Whitaker INTERNET TECHNOLOGY MANAGER 02/28/2023 Last Documented On 3 9:51AM ; [facility] Assessment of tobacco use Medical Establ ished Patient with Aaron Whitaker INTERNET TECHNOLOGY MANAGER 02/28/2023 Last Documented On 3 9:51AM ; [facility] Chronic obstructive pulmonary disease Me dical Established Patient with Aaron Whitaker INTERNET TECHNOLOGY MANAGER 02/28/2023 Last Documented On 3 9:51AM ; [facility] [J20.9 - Acute bronchitis, unspecified] acute bronchitis Medical Established Patient with Karla Clark INTERNET TECHNOLOGY MANAGER 11/19/2022 Last Documented On 3 10:15AM ; [facility] [M79.621 - Pain in right upp er arm] pain in upper arm Medical Established Patient with Karla Clark INTERNET TECHNOLOGY MANAGER 11/19/2022 Last Documented On 3 10:15AM ; [facility] [Z68.23 - Body mass index [B DE] 23.0-23.9, adult] assessment of body mass index Medical Established Patient with Karla Clark INTERNET TECHNOLOGY MANAGER 11/19/2022 Last Documented On 3 10:15AM ; [facility] [M79.601 - Pain in right arm ] pain in right arm Medical Established Patient with Karlajulius Clark INTERNET TECHNOLOGY MANAGER 09/18/2022 Last Documented On 3 2:33PM ; [facility] [Z68.24 - Body mass index [B DE] 24.0-24.9, adult] assessment of body mass index Medical Established Patient with Karla Clark INTERNET TECHNOLOGY MANAGER 09/18/2022 Last Documented On 3 2:33PM ; [facility] Assessment of tobacco use Medical Establ ished Patient with Karla Clark INTERNET TECHNOLOGY MANAGER 09/18/2022 Last Documented On 3 2:33PM ; [facility] [M25.569 - Pain in unspecifi ed knee] arthralgia of knee / patella / tibia / fibula Medical Established Patient with Karla Clark INTERNET TECHNOLOGY MANAGER 08/27/2022 Last Documented On 3 9:20AM ; [facility] [Z68.24 - Body mass index [B DE] 24.0-24.9, adult] assessment of body mass index Medical Established Patient with Karla Clark CNP 08/27/2022 Last Documented On 3 9:20AM ; [facility] Intervention and counseling on cessation of tobacco use, 3-10 minutes Discussed medication and nicotine replacement for tobacco cessation Medical Established Patient with Karla Clark INTERNET TECHNOLOGY MANAGER 08/27/2022 Last Documented On 3 9:20AM ; [facility] Nicotine dependence Medical Established Patient with Karla Clark INTERNET TECHNOLOGY MANAGER 08/27/2022 Last Documented On 3 9:20AM ; [facility] Visit for routine adult H&P without abnormal findings Medical Established Patient with Karla Clark CNP 08/27/2022 Last Documented On 3 9:20AM ; [facility] [H92.02 - Otalgia, left ear] earache Med ical Established Patient with Karla Clark INTERNET TECHNOLOGY MANAGER 06/18/2022 Last Documented On 3 12:11PM ; [facility] [M79.604 - Pain in right leg ] pain in right leg Medical Established Patient with Karla Clark INTERNET TECHNOLOGY MANAGER 06/18/2022 Last Documented On 3 12:11PM ; [facility] [Z68.24 - Body mass index [B DE] 24.0-24.9, adult] assessment of body mass index Medical Established Patient with Karla Clark CNP 06/18/2022 Last Documented On 3 12:11PM ; [facility] Assessment of tobacco use Medical Establ ished Patient with Karla Clark INTERNET TECHNOLOGY MANAGER 06/18/2022 Last Documented On 3 12:11PM ; [facility] Diabetes Risk Test Score was four score 06/18/2022 Medical Established Patient with Karlajulius Clark INTERNET TECHNOLOGY MANAGER 06/18/2022 Last Documented On 3 12:11PM ; [facility] Schizoaffective disorder Established Patient with Yin Feliz LPCC-S 03/20/2022 Last Documented On 2 12:13AM ; [facility] No cough Medical Established Patient with Karlajulius Floresen INTERNET TECHNOLOGY MANAGER 12/20/2021 Last Documented On 2 3:12PM ; [facility] Visit for: screening for hum an immunodeficiency virus Medical Established Patient with Karla Floresen INTERNET TECHNOLOGY MANAGER 12/20/2021 Last Documented On 2 3:12PM ; [facility] Z68.24 - Body mass index [BM I] 24.0-24.9, adult Medical Established Patient with Karla Clark INTERNET TECHNOLOGY MANAGER 12/20/2021 Last Documented On 2 3:12PM ; [facility] Bipolar disorder NOS BH Established Patient with Yin Feliz LPCC-S 11/03/2021 Last Documented On 2 7:00PM ; [facility] Bipolar schizoaffective disorder BH Esta blished Patient with Yin Feliz LPCC-S 11/03/2021 Last Documented On 2 7:00PM ; [facility] PLAN Medical Established Patient with Don Pino MD 11/03/2021 Last Documented On 2 10:40AM ; [facility] Abnormal electrocardiogram Medical Estab lished Patient with Don Pino MD 11/03/2021 Last Documented On 2 10:40AM ; [facility] Z68.24 - Body mass index [BM I] 24.0-24.9, adult Medical Established Patient with Don Pino MD 11/03/2021 Last Documented On 2 10:40AM ; [facility] Cough Medical Established Patient with Karla Clark INTERNET TECHNOLOGY MANAGER 07/28/2021 Last Documented On 2 2:01PM ; [facility] Intervention and counseling on cessation of tobacco use, 3-10 minutes Discussed medication and nicotine replacement for tobacco cessation Medical Established Patient with Karla Clark INTERNET TECHNOLOGY MANAGER 07/28/2021 Last Documented On 2 2:01PM ; [facility] Nicotine dependence Medical Established Patient with Karla Clark INTERNET TECHNOLOGY MANAGER 07/28/2021 Last Documented On 2 2:01PM ; [facility] Z68.24 - Body mass index [BM I] 24.0-24.9, adult Medical Established Patient with Karla Clark INTERNET TECHNOLOGY MANAGER 07/28/2021 Last Documented On 2 2:01PM ; [facility] Assess Colon screening Medical Established Patie nt with Karla Clark INTERNET TECHNOLOGY MANAGER 05/08/2021 Last Documented On 1 10:59AM ; [facility] Diabetes Risk Test Score was four score 05/08/2021 Medical Established Patient with Karla Clark INTERNET TECHNOLOGY MANAGER 05/08/2021 Last Documented On 1 10:59AM ; [facility] Routine adult history and ph ysical (18-64 yrs) without abnormal findings Medical Established Patient with Karla Clark INTERNET TECHNOLOGY MANAGER 05/08/2021 Last Documented On 1 10:59AM ; [facility] Z68.24 - Body mass index [BM I] 24.0-24.9, adult Medical Established Patient with Karla Clark INTERNET TECHNOLOGY MANAGER 05/08/2021 Last Documented On 1 10:59AM ; [facility] Z68.24 - Body mass index [BM I] 24.0-24.9, adult Medical Established Patient with Karla Amber INTERNET TECHNOLOGY MANAGER 06/17/2020 Last Documented On 1 10:30AM ; [facility] Overweight Medical Established Patient with Karla Amber INTERNET TECHNOLOGY MANAGER 06/06/2020 Last Documented On 1 2:06PM ; [facility] Z68.25 - Body mass index [BM I] 25.0-25.9, adult Medical Established Patient with Karla Clark INTERNET TECHNOLOGY MANAGER 06/06/2020 Last Documented On 1 2:06PM ; [facility] Antiasthmatics [facility] Asthma Clinic-New with Karla Amber INTERNET TECHNOLOGY MANAGER 05/06/2020 Last Documented On 0 7:27PM ; [facility] Assessment of tobacco use CPS [facility] Clinic-New with Karla Amber INTERNET TECHNOLOGY MANAGER 05/06/2020 Last Documented On 0 7:27PM ; [facility] Body mass index [facility] Clinic-New with Karla Amber INTERNET TECHNOLOGY MANAGER 05/06/2020 Last Documented On 0 7:27PM ; [facility] Chronic obstructive pulmonary disease S [facility]-New with Karla Amber INTERNET TECHNOLOGY MANAGER 05/06/2020 Last Documented On 0 7:27PM ; [facility] Overweight [facility] Clinic-New with Karla Amber INTERNET TECHNOLOGY MANAGER 05/06/2020 Last Documented On 0 7:27PM ; [facility] Z11.4 - Encounter for screen ing for human immunodeficiency virus [HIV] CPS [facility]-New with Karlajulius Floresen INTERNET TECHNOLOGY MANAGER 05/06/2020 Last Documented On 0 7:27PM ; [facility] Diabetes Risk Test Score was three score 03/31/2020 Medical Established Patient with Karla Amber INTERNET TECHNOLOGY MANAGER 03/31/2020 Last Documented On 0 3:22PM ; [facility] Overweight Medical Established Patient with Karla Amber INTERNET TECHNOLOGY MANAGER 03/31/2020 Last Documented On 0 3:22PM ; [facility] Z68.25 - Body mass index [BM I] 25.0-25.9, adult Medical Established Patient with Karlajulius Floresen INTERNET TECHNOLOGY MANAGER 03/31/2020 Last Documented On 0 3:22PM ; [facility] Encounter for Immunization Nurse Visit with Gary Clark INTERNET TECHNOLOGY MANAGER 03/14/2020 Last Documented On 0 5:11PM ; [facility] Body mass index Medical Established Patient with Karla Amber INTERNET TECHNOLOGY MANAGER 02/26/2020 Last Documented On 0 1:18PM ; [facility] Overweight Medical Established Patient with Karla Amber INTERNET TECHNOLOGY MANAGER 02/26/2020 Last Documented On 0 1:18PM ; [facility] Overweight Medical Established Patient with Karla Amber INTERNET TECHNOLOGY MANAGER 07/23/2019 Last Documented On 0 2:33PM ; [facility] Z68.27 - Body mass index (BM I) 27.0-27.9, adult Medical Established Patient with Karla Clark INTERNET TECHNOLOGY MANAGER 07/23/2019 Last Documented On 0 2:33PM ; [facility] Occasional asthma CPS- Asthma Clinic- F/U with A french Clark INTERNET TECHNOLOGY MANAGER 06/05/2019 Last Documented On 0 7:04PM ; [facility] Overweight CPS- [facility]- F/U with Aim julius Clark INTERNET TECHNOLOGY MANAGER 06/05/2019 Last Documented On 0 7:04PM ; [facility] Z68.27 - Body mass index (BM I) 27.0-27.9 adult CPS- [facility] Clinic- F/U with Karla Clark INTERNET TECHNOLOGY MANAGER 06/05/2019 Last Documented On 0 7:04PM ; [facility] Occasional asthma CPS Med Review with Karla dinh INTERNET TECHNOLOGY MANAGER 04/23/2019 Last Documented On 9 4:01PM ; [facility] Overweight CPS Med Review with Karla Clark INTERNET TECHNOLOGY MANAGER 04/23/2019 Last Documented On 9 4:01PM ; [facility] Z68.27 - Body mass index (BM I) 27.0-27.9 adult CPS Med Review with Karla Clark INTERNET TECHNOLOGY MANAGER 04/23/2019 Last Documented On 9 4:01PM ; [facility] Acute pharyngitis Medical Established Patient wi th Brandy Warren INTERNET TECHNOLOGY MANAGER 04/15/2019 Last Documented On 9 12:31PM ; [facility] Asthmatic bronchitis with ac [place] exacerbation Medical Established Patient with Brandy Warren INTERNET TECHNOLOGY MANAGER 04/15/2019 Last Documented On 9 12:31PM ; [facility] Fagerstrom Score was two Medical Established Pat ient with Brandy Warren INTERNET TECHNOLOGY MANAGER 04/15/2019 Last Documented On 9 12:31PM ; [facility] PHQ-9: total score was three 04/15/2019 Medical Established Patient with Brandy Warren INTERNET TECHNOLOGY MANAGER 04/15/2019 Last Documented On 9 12:31PM ; [facility] Body mass index Medical Established Patient with Karla Amber INTERNET TECHNOLOGY MANAGER 03/05/2019 Last Documented On 9 10:27AM ; [facility] Diabetes Risk Test Score was three score Medical Established Patient with Karla Amber INTERNET TECHNOLOGY MANAGER 03/05/2019 Last Documented On 9 10:27AM ; [facility] Overweight Medical Established Patient with Karla Amber INTERNET TECHNOLOGY MANAGER 03/05/2019 Last Documented On 9 10:27AM ; [facility] Z68.28 - Body mass index (BM I) 28.0-28.9, adult Medical Established Patient with Karla Amber INTERNET TECHNOLOGY MANAGER 12/22/2018 Last Documented On 9 10:32AM ; [facility] Assess routine adult history and physical (18 - 64 yrs) Medical Established Patient with Karla Amber INTERNET TECHNOLOGY MANAGER 11/06/2018 Last Documented On 9 2:26PM ; [facility] Overweight Medical Established Patient with Karla Amber INTERNET TECHNOLOGY MANAGER 11/06/2018 Last Documented On 9 2:26PM ; [facility] Z68.28 - Body mass index (BM I) 28.0-28.9, adult Medical Established Patient with Karla Amber INTERNET TECHNOLOGY MANAGER 11/06/2018 Last Documented On 9 2:26PM ; [facility] Assess dysphagia Medical Established Patient wit h Karla Amber INTERNET TECHNOLOGY MANAGER 09/11/2018 Last Documented On 9 10:53AM ; [facility] Assess routine adult history and physical (18 - 64 yrs) Medical Established Patient with Karla Amber INTERNET TECHNOLOGY MANAGER 09/11/2018 Last Documented On 9 10:53AM ; [facility] Assess primary insomnia with sleep apnea Medical Established Patient with Karla Amber INTERNET TECHNOLOGY MANAGER 09/04/2018 Last Documented On 9 2:23PM ; [facility] Assess routine adult history and physical (18 - 64 yrs) Medical Established Patient with Karla Amber INTERNET TECHNOLOGY MANAGER 09/04/2018 Last Documented On 9 2:23PM ; [facility] Overweight Medical Established Patient with Karla Amber INTERNET TECHNOLOGY MANAGER 09/04/2018 Last Documented On 9 2:23PM ; [facility] Z68.29 - Body mass index (BM I) 29.0-29.9, adult Medical Established Patient with Karla Clark INTERNET TECHNOLOGY MANAGER 09/04/2018 Last Documented On 9 2:23PM ; [facility] Assess vaginal candidiasis Medical Estab lished Patient with Karla Clark INTERNET TECHNOLOGY MANAGER 07/31/2018 Last Documented On 9 2:12PM ; [facility] Work Phone: Evaluation note* Diagnosis Onset Date Resolution Status Abdominal pain acute Flank pain acute Hypertension acute Prolonged Q-T interval on ECG acute Schizoaffective disorder acu [facility] Work Phone: Evaluation note Includes: Assessments for all patient encounters Findings Encounter Date [R30.0 - Dysuria] Dysuria Chart Update with Gary Clark INTERNET TECHNOLOGY MANAGER 03/21/2023 Last Documented On 3 11:27AM ; [facility] [Z12.39 - Encounter for othe r screening for malignant neoplasm of breast] visit for: screening for malignant breast neoplasm Medical Established Patient with Lina Penix INTERNET TECHNOLOGY MANAGER 02/28/2023 Last Documented On 3 9:51AM ; [facility] [Z68.24 - Body mass index [B DE] 24.0-24.9, adult] assessment of body mass index Medical Established Patient with Aaron Garcia Penix INTERNET TECHNOLOGY MANAGER 02/28/2023 Last Documented On 3 9:51AM ; [facility] Assessment of tobacco use Medical Establ ished Patient with Lina Penix INTERNET TECHNOLOGY MANAGER 02/28/2023 Last Documented On 3 9:51AM ; [facility] Chronic obstructive pulmonary disease Me dical Established Patient with Lina Penix INTERNET TECHNOLOGY MANAGER 02/28/2023 Last Documented On 3 9:51AM ; [facility] [J20.9 - Acute bronchitis, unspecified] acute bronchitis Medical Established Patient with Karla Clark INTERNET TECHNOLOGY MANAGER 11/19/2022 Last Documented On 3 10:15AM ; [facility] [M79.621 - Pain in right upp er arm] pain in upper arm Medical Established Patient with Karla Clark INTERNET TECHNOLOGY MANAGER 11/19/2022 Last Documented On 3 10:15AM ; [facility] [Z68.23 - Body mass index [B DE] 23.0-23.9, adult] assessment of body mass index Medical Established Patient with Karla Clark INTERNET TECHNOLOGY MANAGER 11/19/2022 Last Documented On 3 10:15AM ; [facility] [M79.601 - Pain in right arm ] pain in right arm Medical Established Patient with Karla Clark INTERNET TECHNOLOGY MANAGER 09/18/2022 Last Documented On 3 2:33PM ; [facility] [Z68.24 - Body mass index [B DE] 24.0-24.9, adult] assessment of body mass index Medical Established Patient with Karla Clark INTERNET TECHNOLOGY MANAGER 09/18/2022 Last Documented On 3 2:33PM ; [facility] Assessment of tobacco use Medical Establ ished Patient with Karla Clark INTERNET TECHNOLOGY MANAGER 09/18/2022 Last Documented On 3 2:33PM ; [facility] [M25.569 - Pain in unspecifi ed knee] arthralgia of knee / patella / tibia / fibula Medical Established Patient with Karla Clark CNP 08/27/2022 Last Documented On 3 9:20AM ; [facility] [Z68.24 - Body mass index [B DE] 24.0-24.9, adult] assessment of body mass index Medical Established Patient with Karla Clark CNP 08/27/2022 Last Documented On 3 9:20AM ; [facility] Intervention and counseling on cessation of tobacco use, 3-10 minutes Discussed medication and nicotine replacement for tobacco cessation Medical Established Patient with Karla Clark INTERNET TECHNOLOGY MANAGER 08/27/2022 Last Documented On 3 9:20AM ; [facility] Nicotine dependence Medical Established Patient with Karla Clark INTERNET TECHNOLOGY MANAGER 08/27/2022 Last Documented On 3 9:20AM ; [facility] Visit for routine adult H&P without abnormal findings Medical Established Patient with Karla Clark CNP 08/27/2022 Last Documented On 3 9:20AM ; [facility] [H92.02 - Otalgia, left ear] earache Med ical Established Patient with Karla Clark INTERNET TECHNOLOGY MANAGER 06/18/2022 Last Documented On 3 12:11PM ; [facility] [M79.604 - Pain in right leg ] pain in right leg Medical Established Patient with Karlajulius Floresen INTERNET TECHNOLOGY MANAGER 06/18/2022 Last Documented On 3 12:11PM ; [facility] [Z68.24 - Body mass index [B DE] 24.0-24.9, adult] assessment of body mass index Medical Established Patient with Karlajulius Clark INTERNET TECHNOLOGY MANAGER 06/18/2022 Last Documented On 3 12:11PM ; [facility] Assessment of tobacco use Medical Establ ished Patient with Karla Amber INTERNET TECHNOLOGY MANAGER 06/18/2022 Last Documented On 3 12:11PM ; [facility] Diabetes Risk Test Score was four score 06/18/2022 Medical Established Patient with Karla Amber INTERNET TECHNOLOGY MANAGER 06/18/2022 Last Documented On 3 12:11PM ; [facility] Schizoaffective disorder Established Patient with Yin Feliz LPCC-S 03/20/2022 Last Documented On 2 12:13AM ; [facility] No cough Medical Established Patient with Karla Amber INTERNET TECHNOLOGY MANAGER 12/20/2021 Last Documented On 2 3:12PM ; [facility] Visit for: screening for hum an immunodeficiency virus Medical Established Patient with Karla Amber INTERNET TECHNOLOGY MANAGER 12/20/2021 Last Documented On 2 3:12PM ; [facility] Z68.24 - Body mass index [BM I] 24.0-24.9, adult Medical Established Patient with Karla Amber INTERNET TECHNOLOGY MANAGER 12/20/2021 Last Documented On 2 3:12PM ; [facility] Bipolar disorder NOS Established Patient with Yin Feliz LPCC-S 11/03/2021 Last Documented On 2 7:00PM ; [facility] Bipolar schizoaffective disorder BH Esta blished Patient with Yin Feliz LPCC-S 11/03/2021 Last Documented On 2 7:00PM ; [facility] PLAN Medical Established Patient with Don Pino MD 11/03/2021 Last Documented On 2 10:40AM ; [facility] Abnormal electrocardiogram Medical Estab lished Patient with Don Pino MD 11/03/2021 Last Documented On 2 10:40AM ; [facility] Z68.24 - Body mass index [BM I] 24.0-24.9, adult Medical Established Patient with Don Pino MD 11/03/2021 Last Documented On 2 10:40AM ; [facility] Cough Medical Established Patient with Karla Amber INTERNET TECHNOLOGY MANAGER 07/28/2021 Last Documented On 2 2:01PM ; [facility] Intervention and counseling on cessation of tobacco use, 3-10 minutes Discussed medication and nicotine replacement for tobacco cessation Medical Established Patient with Karla Amber INTERNET TECHNOLOGY MANAGER 07/28/2021 Last Documented On 2 2:01PM ; [facility] Nicotine dependence Medical Established Patient with Karla Amber INTERNET TECHNOLOGY MANAGER 07/28/2021 Last Documented On 2 2:01PM ; [facility] Z68.24 - Body mass index [BM I] 24.0-24.9, adult Medical Established Patient with Karla Amber INTERNET TECHNOLOGY MANAGER 07/28/2021 Last Documented On 2 2:01PM ; [facility] Assess Colon screening Medical Established Patie nt with Karla Amber INTERNET TECHNOLOGY MANAGER 05/08/2021 Last Documented On 1 10:59AM ; [facility] Diabetes Risk Test Score was four score 05/08/2021 Medical Established Patient with Karla Amber INTERNET TECHNOLOGY MANAGER 05/08/2021 Last Documented On 1 10:59AM ; [facility] Routine adult history and ph ysical (18-64 yrs) without abnormal findings Medical Established Patient with Karla Amber INTERNET TECHNOLOGY MANAGER 05/08/2021 Last Documented On 1 10:59AM ; [facility] Z68.24 - Body mass index [BM I] 24.0-24.9, adult Medical Established Patient with Karla Amber INTERNET TECHNOLOGY MANAGER 05/08/2021 Last Documented On 1 10:59AM ; [facility] Z68.24 - Body mass index [BM I] 24.0-24.9, adult Medical Established Patient with Karla Amber INTERNET TECHNOLOGY MANAGER 06/17/2020 Last Documented On 1 10:30AM ; [facility] Overweight Medical Established Patient with Karla Amber INTERNET TECHNOLOGY MANAGER 06/06/2020 Last Documented On 1 2:06PM ; [facility] Z68.25 - Body mass index [BM I] 25.0-25.9, adult Medical Established Patient with Karla Amber INTERNET TECHNOLOGY MANAGER 06/06/2020 Last Documented On 1 2:06PM ; [facility] Antiasthmatics [facility] Asthma Clinic-New with Karla Amber INTERNET TECHNOLOGY MANAGER 05/06/2020 Last Documented On 0 7:27PM ; [facility] Assessment of tobacco use [facility] Asthma Clinic-New with Karla Amber INTERNET TECHNOLOGY MANAGER 05/06/2020 Last Documented On 0 7:27PM ; [facility] Body mass index [facility] Asthma Clinic-New with Karla Amber INTERNET TECHNOLOGY MANAGER 05/06/2020 Last Documented On 0 7:27PM ; [facility] Chronic obstructive pulmonary disease S [facility]-New with Karla Amber INTERNET TECHNOLOGY MANAGER 05/06/2020 Last Documented On 0 7:27PM ; [facility] Overweight [facility] Asthma Clinic-New with Karla Amber INTERNET TECHNOLOGY MANAGER 05/06/2020 Last Documented On 0 7:27PM ; [facility] Z11.4 - Encounter for screen ing for human immunodeficiency virus [HIV] CPS [facility]-New with Karla Amber INTERNET TECHNOLOGY MANAGER 05/06/2020 Last Documented On 0 7:27PM ; [facility] Diabetes Risk Test Score was three score 03/31/2020 Medical Established Patient with Karla Amber INTERNET TECHNOLOGY MANAGER 03/31/2020 Last Documented On 0 3:22PM ; [facility] Overweight Medical Established Patient with Karla Amber INTERNET TECHNOLOGY MANAGER 03/31/2020 Last Documented On 0 3:22PM ; [facility] Z68.25 - Body mass index [BM I] 25.0-25.9, adult Medical Established Patient with Karla Clark INTERNET TECHNOLOGY MANAGER 03/31/2020 Last Documented On 0 3:22PM ; [facility] Encounter for Immunization Nurse Visit with Gary Clark INTERNET TECHNOLOGY MANAGER 03/14/2020 Last Documented On 0 5:11PM ; [facility] Body mass index Medical Established Patient with Karla Floresen INTERNET TECHNOLOGY MANAGER 02/26/2020 Last Documented On 0 1:18PM ; [facility] Overweight Medical Established Patient with Karla Amber INTERNET TECHNOLOGY MANAGER 02/26/2020 Last Documented On 0 1:18PM ; [facility] Overweight Medical Established Patient with Karla Floresen INTERNET TECHNOLOGY MANAGER 07/23/2019 Last Documented On 0 2:33PM ; [facility] Z68.27 - Body mass index (BM I) 27.0-27.9, adult Medical Established Patient with Karla Clark INTERNET TECHNOLOGY MANAGER 07/23/2019 Last Documented On 0 2:33PM ; [facility] Occasional asthma CPS- Asthma Clinic- F/U with A french Clark INTERNET TECHNOLOGY MANAGER 06/05/2019 Last Documented On 0 7:04PM ; [facility] Overweight CPS- [facility] Clinic- F/U with Alta Clark INTERNET TECHNOLOGY MANAGER 06/05/2019 Last Documented On 0 7:04PM ; [facility] Z68.27 - Body mass index (BM I) 27.0-27.9 adult CPS- [facility] Clinic- F/U with Karla Clark INTERNET TECHNOLOGY MANAGER 06/05/2019 Last Documented On 0 7:04PM ; [facility] Occasional asthma CPS Med Review with Karla Flores en INTERNET TECHNOLOGY MANAGER 04/23/2019 Last Documented On 9 4:01PM ; [facility] Overweight CPS Med Review with Karla Floresen INTERNET TECHNOLOGY MANAGER 04/23/2019 Last Documented On 9 4:01PM ; [facility] Z68.27 - Body mass index (BM I) 27.0-27.9 adult CPS Med Review with Karla Floresen INTERNET TECHNOLOGY MANAGER 04/23/2019 Last Documented On 9 4:01PM ; [facility] Acute pharyngitis Medical Established Patient wi maxwell Kelley INTERNET TECHNOLOGY MANAGER 04/15/2019 Last Documented On 9 12:31PM ; [facility] Asthmatic bronchitis with ac [place] exacerbation Medical Established Patient with Brandy Warren INTERNET TECHNOLOGY MANAGER 04/15/2019 Last Documented On 9 12:31PM ; [facility] Fagerstrom Score was two Medical Established Pat ient with Brandy Warren INTERNET TECHNOLOGY MANAGER 04/15/2019 Last Documented On 9 12:31PM ; [facility] PHQ-9: total score was three 04/15/2019 Medical Established Patient with Brandy Warren INTERNET TECHNOLOGY MANAGER 04/15/2019 Last Documented On 9 12:31PM ; [facility] Body mass index Medical Established Patient with Karla Floresen INTERNET TECHNOLOGY MANAGER 03/05/2019 Last Documented On 9 10:27AM ; [facility] Diabetes Risk Test Score was three score Medical Established Patient with Karla Amber INTERNET TECHNOLOGY MANAGER 03/05/2019 Last Documented On 9 10:27AM ; [facility] Overweight Medical Established Patient with Karla Amber INTERNET TECHNOLOGY MANAGER 03/05/2019 Last Documented On 9 10:27AM ; [facility] Z68.28 - Body mass index (BM I) 28.0-28.9, adult Medical Established Patient with Karla Floresen INTERNET TECHNOLOGY MANAGER 12/22/2018 Last Documented On 9 10:32AM ; [facility] Assess routine adult history and physical (18 - 64 yrs) Medical Established Patient with Karla Amber INTERNET TECHNOLOGY MANAGER 11/06/2018 Last Documented On 9 2:26PM ; [facility] Overweight Medical Established Patient with Karla Amber INTERNET TECHNOLOGY MANAGER 11/06/2018 Last Documented On 9 2:26PM ; [facility] Z68.28 - Body mass index (BM I) 28.0-28.9, adult Medical Established Patient with Karla Amber INTERNET TECHNOLOGY MANAGER 11/06/2018 Last Documented On 9 2:26PM ; [facility] Assess dysphagia Medical Established Patient wit h Karla Floresen INTERNET TECHNOLOGY MANAGER 09/11/2018 Last Documented On 9 10:53AM ; [facility] Assess routine adult history and physical (18 - 64 yrs) Medical Established Patient with Karlajulius Clark INTERNET TECHNOLOGY MANAGER 09/11/2018 Last Documented On 9 10:53AM ; [facility] Assess primary insomnia with sleep apnea Medical Established Patient with Karla Amber INTERNET TECHNOLOGY MANAGER 09/04/2018 Last Documented On 9 2:23PM ; [facility] Assess routine adult history and physical (18 - 64 yrs) Medical Established Patient with Karla Amber INTERNET TECHNOLOGY MANAGER 09/04/2018 Last Documented On 9 2:23PM ; [facility] Overweight Medical Established Patient with Karla Amber INTERNET TECHNOLOGY MANAGER 09/04/2018 Last Documented On 9 2:23PM ; [facility] Z68.29 - Body mass index (BM I) 29.0-29.9, adult Medical Established Patient with Karla Amber INTERNET TECHNOLOGY MANAGER 09/04/2018 Last Documented On 9 2:23PM ; [facility] Assess vaginal candidiasis Medical Estab lished Patient with Karla Amber INTERNET TECHNOLOGY MANAGER 07/31/2018 Last Documented On 9 2:12PM ; [facility] Work Phone: Evaluation note* Diagnosis Onset Date Resolution Status Abdominal pain acute Flank pain acute Hypertension acute Prolonged Q-T interval on ECG acute Schizoaffective disorder acu te Abdominal pain acute MYESHA (acute kidney injury) ac [place] Flank pain acute Nausea & vomiting acute Schizoaffective disorder acu [facility] Work Phone: Evaluation note* Diagnosis Neoplasm of unspecified behavior of bone, soft tissue, and skin- Primary documented in this encounter [facility] HealthcareEvaluation note* Diagnosis Onset Date Resolution Status Acute psychosis acute Chronic schizophrenia acute [facility] Work Phone: Evaluation note* Diagnosis Onset Date Resolution Status Acute psychosis acute Chronic schizophrenia [facility]* Diagnosis Nontoxic multinodular goiter- Primary Thyroid nodule Nontoxic uninodular goiter [facility]: Assessments for all patient encounters Findings Encounter Date [R26.89 - Other abnormalitie s of gait and mobility] staggering gait Chart Update with Karla Clark [facility] 11/15/2023 Last Documented On 4 12:07PM ; [facility] [F17.210 - Nicotine dependen ce, cigarettes, uncomplicated] continuous dependence on cigarette smoking Medical Established Patient with Karla Clark [facility] 10/04/2023 Last Documented On 4 6:30PM ; [facility] [Z12.11 - Encounter for scre ening for malignant neoplasm of colon] Colon screening Medical Established Patient with Karla Clark [facility] 10/04/2023 Last Documented On 4 6:30PM ; [facility] [Z68.25 - Body mass index [B DE] 25.0-25.9, adult] assessment of body mass index Medical Established Patient with Karla Clark [facility] 10/04/2023 Last Documented On 4 6:30PM ; [facility] Diabetes Risk Test Score was five score 10/04/2023 Medical Established Patient with Karla Clark [facility] 10/04/2023 Last Documented On 4 6:30PM ; [facility] Encounter for Immunization Medical Estab lished Patient with Karla Clark [facility] 10/04/2023 Last Documented On 4 6:30PM ; [facility] [D48.5 - Neoplasm of uncerta in behavior of skin] skin neoplasm of uncertain behavior Medical Established Patient with Karla Clark [facility] 05/22/2023 Last Documented On 3 1:30PM ; [facility] [Z68.24 - Body mass index [B DE] 24.0-24.9, adult] assessment of body mass index Medical Established Patient with Karla Clark [facility] 05/22/2023 Last Documented On 3 1:30PM ; [facility] Assessment of tobacco use Medical Establ ished Patient with Karla Clark [facility] 05/22/2023 Last Documented On 3 1:30PM ; [facility] [R30.0 - Dysuria] Dysuria Chart Update with Gary Clark [facility] 03/21/2023 Last Documented On 3 11:27AM ; [facility] [Z12.39 - Encounter for othe r screening for malignant neoplasm of breast] visit for: screening for malignant breast neoplasm Medical Established Patient with Aaron Whitaker INTERNET TECHNOLOGY MANAGER 02/28/2023 Last Documented On 3 9:51AM ; [facility] [Z68.24 - Body mass index [B DE] 24.0-24.9, adult] assessment of body mass index Medical Established Patient with Aaron Whitaker INTERNET TECHNOLOGY MANAGER 02/28/2023 Last Documented On 3 9:51AM ; [facility] Assessment of tobacco use Medical Establ ished Patient with Aaron Whitaker INTERNET TECHNOLOGY MANAGER 02/28/2023 Last Documented On 3 9:51AM ; [facility] Chronic obstructive pulmonary disease Me dical Established Patient with Aaron Whitaker INTERNET TECHNOLOGY MANAGER 02/28/2023 Last Documented On 3 9:51AM ; [facility] [J20.9 - Acute bronchitis, unspecified] acute bronchitis Medical Established Patient with Karla Clark INTERNET TECHNOLOGY MANAGER 11/19/2022 Last Documented On 3 10:15AM ; [facility] [M79.621 - Pain in right upp er arm] pain in upper arm Medical Established Patient with Karla Clark INTERNET TECHNOLOGY MANAGER 11/19/2022 Last Documented On 3 10:15AM ; [facility] [Z68.23 - Body mass index [B DE] 23.0-23.9, adult] assessment of body mass index Medical Established Patient with Karla Clark INTERNET TECHNOLOGY MANAGER 11/19/2022 Last Documented On 3 10:15AM ; [facility] [M79.601 - Pain in right arm ] pain in right arm Medical Established Patient with Karlajulius Floresen INTERNET TECHNOLOGY MANAGER 09/18/2022 Last Documented On 3 2:33PM ; [facility] [Z68.24 - Body mass index [B DE] 24.0-24.9, adult] assessment of body mass index Medical Established Patient with Karla Floresen INTERNET TECHNOLOGY MANAGER 09/18/2022 Last Documented On 3 2:33PM ; [facility] Assessment of tobacco use Medical Establ ished Patient with Karlajulius Floresen INTERNET TECHNOLOGY MANAGER 09/18/2022 Last Documented On 3 2:33PM ; [facility] [M25.569 - Pain in unspecifi ed knee] arthralgia of knee / patella / tibia / fibula Medical Established Patient with Karla Clark INTERNET TECHNOLOGY MANAGER 08/27/2022 Last Documented On 3 9:20AM ; [facility] [Z68.24 - Body mass index [B DE] 24.0-24.9, adult] assessment of body mass index Medical Established Patient with Karla Clark INTERNET TECHNOLOGY MANAGER 08/27/2022 Last Documented On 3 9:20AM ; [facility] Intervention and counseling on cessation of tobacco use, 3-10 minutes Discussed medication and nicotine replacement for tobacco cessation Medical Established Patient with Karla Clark INTERNET TECHNOLOGY MANAGER 08/27/2022 Last Documented On 3 9:20AM ; [facility] Nicotine dependence Medical Established Patient with Karla Clark CNP 08/27/2022 Last Documented On 3 9:20AM ; [facility] Visit for routine adult H&P without abnormal findings Medical Established Patient with Karla Clark INTERNET TECHNOLOGY MANAGER 08/27/2022 Last Documented On 3 9:20AM ; [facility] [H92.02 - Otalgia, left ear] earache Med ical Established Patient with Karla Clark INTERNET TECHNOLOGY MANAGER 06/18/2022 Last Documented On 3 12:11PM ; [facility] [M79.604 - Pain in right leg ] pain in right leg Medical Established Patient with Karla Clark INTERNET TECHNOLOGY MANAGER 06/18/2022 Last Documented On 3 12:11PM ; [facility] [Z68.24 - Body mass index [B DE] 24.0-24.9, adult] assessment of body mass index Medical Established Patient with Karla Clark INTERNET TECHNOLOGY MANAGER 06/18/2022 Last Documented On 3 12:11PM ; [facility] Assessment of tobacco use Medical Establ ished Patient with Karla Clark INTERNET TECHNOLOGY MANAGER 06/18/2022 Last Documented On 3 12:11PM ; [facility] Diabetes Risk Test Score was four score 06/18/2022 Medical Established Patient with Karla Clark INTERNET TECHNOLOGY MANAGER 06/18/2022 Last Documented On 3 12:11PM ; [facility] Schizoaffective disorder Established Patient with Yin Feliz LPCC-S 03/20/2022 Last Documented On 2 12:13AM ; [facility] No cough Medical Established Patient with Karlajulius Floresen INTERNET TECHNOLOGY MANAGER 12/20/2021 Last Documented On 2 3:12PM ; [facility] Visit for: screening for hum an immunodeficiency virus Medical Established Patient with Karlajulius Floresen INTERNET TECHNOLOGY MANAGER 12/20/2021 Last Documented On 2 3:12PM ; [facility] Z68.24 - Body mass index [BM I] 24.0-24.9, adult Medical Established Patient with Karla Clark INTERNET TECHNOLOGY MANAGER 12/20/2021 Last Documented On 2 3:12PM ; [facility] Bipolar disorder NOS BH Established Patient with Yin Feliz LPCC-S 11/03/2021 Last Documented On 2 7:00PM ; [facility] Bipolar schizoaffective disorder BH Esta blished Patient with Yin Feliz LPCC-S 11/03/2021 Last Documented On 2 7:00PM ; [facility] PLAN Medical Established Patient with Don Pino MD 11/03/2021 Last Documented On 2 10:40AM ; [facility] Abnormal electrocardiogram Medical Estab lished Patient with Don Pino MD 11/03/2021 Last Documented On 2 10:40AM ; [facility] Z68.24 - Body mass index [BM I] 24.0-24.9, adult Medical Established Patient with Don Pino MD 11/03/2021 Last Documented On 2 10:40AM ; [facility] Cough Medical Established Patient with Karla Clark INTERNET TECHNOLOGY MANAGER 07/28/2021 Last Documented On 2 2:01PM ; [facility] Intervention and counseling on cessation of tobacco use, 3-10 minutes Discussed medication and nicotine replacement for tobacco cessation Medical Established Patient with Karla Clark INTERNET TECHNOLOGY MANAGER 07/28/2021 Last Documented On 2 2:01PM ; [facility] Nicotine dependence Medical Established Patient with Karla Amber INTERNET TECHNOLOGY MANAGER 07/28/2021 Last Documented On 2 2:01PM ; [facility] Z68.24 - Body mass index [BM I] 24.0-24.9, adult Medical Established Patient with Karla Amber INTERNET TECHNOLOGY MANAGER 07/28/2021 Last Documented On 2 2:01PM ; [facility] Assess Colon screening Medical Established Patie nt with Karla Amber INTERNET TECHNOLOGY MANAGER 05/08/2021 Last Documented On 1 10:59AM ; [facility] Diabetes Risk Test Score was four score 05/08/2021 Medical Established Patient with Karla Amber INTERNET TECHNOLOGY MANAGER 05/08/2021 Last Documented On 1 10:59AM ; [facility] Routine adult history and ph ysical (18-64 yrs) without abnormal findings Medical Established Patient with Karla Amber INTERNET TECHNOLOGY MANAGER 05/08/2021 Last Documented On 1 10:59AM ; [facility] Z68.24 - Body mass index [BM I] 24.0-24.9, adult Medical Established Patient with Karla Amber INTERNET TECHNOLOGY MANAGER 05/08/2021 Last Documented On 1 10:59AM ; [facility] Z68.24 - Body mass index [BM I] 24.0-24.9, adult Medical Established Patient with Karla Amber INTERNET TECHNOLOGY MANAGER 06/17/2020 Last Documented On 1 10:30AM ; [facility] Overweight Medical Established Patient with Karla Amber INTERNET TECHNOLOGY MANAGER 06/06/2020 Last Documented On 1 2:06PM ; [facility] Z68.25 - Body mass index [BM I] 25.0-25.9, adult Medical Established Patient with Karla Amber INTERNET TECHNOLOGY MANAGER 06/06/2020 Last Documented On 1 2:06PM ; [facility] Antiasthmatics [facility] Asthma Clinic-New with Karla Amber INTERNET TECHNOLOGY MANAGER 05/06/2020 Last Documented On 0 7:27PM ; [facility] Assessment of tobacco use CPS [facility]-New with Karla Amber INTERNET TECHNOLOGY MANAGER 05/06/2020 Last Documented On 0 7:27PM ; [facility] Body mass index CPS [facility]-New with Karlajulius Floresen INTERNET TECHNOLOGY MANAGER 05/06/2020 Last Documented On 0 7:27PM ; [facility] Chronic obstructive pulmonary disease CP S [facility]-New with Karla Amber INTERNET TECHNOLOGY MANAGER 05/06/2020 Last Documented On 0 7:27PM ; [facility] Overweight CPS [facility]-New with Karla Amber INTERNET TECHNOLOGY MANAGER 05/06/2020 Last Documented On 0 7:27PM ; [facility] Z11.4 - Encounter for screen ing for human immunodeficiency virus [HIV] CPS [facility]-New with Karlajulius Floresen INTERNET TECHNOLOGY MANAGER 05/06/2020 Last Documented On 0 7:27PM ; [facility] Diabetes Risk Test Score was three score 03/31/2020 Medical Established Patient with Karla Amber INTERNET TECHNOLOGY MANAGER 03/31/2020 Last Documented On 0 3:22PM ; [facility] Overweight Medical Established Patient with Karla Amber INTERNET TECHNOLOGY MANAGER 03/31/2020 Last Documented On 0 3:22PM ; [facility] Z68.25 - Body mass index [BM I] 25.0-25.9, adult Medical Established Patient with Karla Maber INTERNET TECHNOLOGY MANAGER 03/31/2020 Last Documented On 0 3:22PM ; [facility] Encounter for Immunization Nurse Visit with Gary Clark INTERNET TECHNOLOGY MANAGER 03/14/2020 Last Documented On 0 5:11PM ; [facility] Body mass index Medical Established Patient with Karla Amber INTERNET TECHNOLOGY MANAGER 02/26/2020 Last Documented On 0 1:18PM ; [facility] Overweight Medical Established Patient with Karla Amber INTERNET TECHNOLOGY MANAGER 02/26/2020 Last Documented On 0 1:18PM ; [facility] Overweight Medical Established Patient with Karla Amber INTERNET TECHNOLOGY MANAGER 07/23/2019 Last Documented On 0 2:33PM ; [facility] Z68.27 - Body mass index (BM I) 27.0-27.9, adult Medical Established Patient with Karla Amber INTERNET TECHNOLOGY MANAGER 07/23/2019 Last Documented On 0 2:33PM ; [facility] Occasional asthma CPS- Asthma Clinic- F/U with A french Clark INTERNET TECHNOLOGY MANAGER 06/05/2019 Last Documented On 0 7:04PM ; [facility] Overweight CPS- Asthma Clinic- F/U with Alta Clark INTERNET TECHNOLOGY MANAGER 06/05/2019 Last Documented On 0 7:04PM ; [facility] Z68.27 - Body mass index (BM I) 27.0-27.9 adult CPS- Asthma Clinic- F/U with Karla Clark INTERNET TECHNOLOGY MANAGER 06/05/2019 Last Documented On 0 7:04PM ; [facility] Occasional asthma CPS Med Review with Karla Sandra dinh INTERNET TECHNOLOGY MANAGER 04/23/2019 Last Documented On 9 4:01PM ; [facility] Overweight CPS Med Review with Karla Amber INTERNET TECHNOLOGY MANAGER 04/23/2019 Last Documented On 9 4:01PM ; [facility] Z68.27 - Body mass index (BM I) 27.0-27.9 adult CPS Med Review with Karla Floresen INTERNET TECHNOLOGY MANAGER 04/23/2019 Last Documented On 9 4:01PM ; [facility] Acute pharyngitis Medical Established Patient wi th Brandy Kelley INTERNET TECHNOLOGY MANAGER 04/15/2019 Last Documented On 9 12:31PM ; [facility] Asthmatic bronchitis with ac [place] exacerbation Medical Established Patient with Brandy Warren INTERNET TECHNOLOGY MANAGER 04/15/2019 Last Documented On 9 12:31PM ; [facility] Fagerstrom Score was two Medical Established Pat ient with Brandy Warren INTERNET TECHNOLOGY MANAGER 04/15/2019 Last Documented On 9 12:31PM ; [facility] PHQ-9: total score was three 04/15/2019 Medical Established Patient with Brandy Warren INTERNET TECHNOLOGY MANAGER 04/15/2019 Last Documented On 9 12:31PM ; [facility] Body mass index Medical Established Patient with Karla Amber INTERNET TECHNOLOGY MANAGER 03/05/2019 Last Documented On 9 10:27AM ; [facility] Diabetes Risk Test Score was three score Medical Established Patient with Karla Amber INTERNET TECHNOLOGY MANAGER 03/05/2019 Last Documented On 9 10:27AM ; [facility] Overweight Medical Established Patient with Karla Amber INTERNET TECHNOLOGY MANAGER 03/05/2019 Last Documented On 9 10:27AM ; [facility] Z68.28 - Body mass index (BM I) 28.0-28.9, adult Medical Established Patient with Karla Amber INTERNET TECHNOLOGY MANAGER 12/22/2018 Last Documented On 9 10:32AM ; [facility] Assess routine adult history and physical (18 - 64 yrs) Medical Established Patient with Karla Amber INTERNET TECHNOLOGY MANAGER 11/06/2018 Last Documented On 9 2:26PM ; [facility] Overweight Medical Established Patient with Karla Amber INTERNET TECHNOLOGY MANAGER 11/06/2018 Last Documented On 9 2:26PM ; [facility] Z68.28 - Body mass index (BM I) 28.0-28.9, adult Medical Established Patient with Karla Amber INTERNET TECHNOLOGY MANAGER 11/06/2018 Last Documented On 9 2:26PM ; [facility] Assess dysphagia Medical Established Patient wit h Karla Amber INTERNET TECHNOLOGY MANAGER 09/11/2018 Last Documented On 9 10:53AM ; [facility] Assess routine adult history and physical (18 - 64 yrs) Medical Established Patient with Karla Amber INTERNET TECHNOLOGY MANAGER 09/11/2018 Last Documented On 9 10:53AM ; [facility] Assess primary insomnia with sleep apnea Medical Established Patient with Karla Amber INTERNET TECHNOLOGY MANAGER 09/04/2018 Last Documented On 9 2:23PM ; [facility] Assess routine adult history and physical (18 - 64 yrs) Medical Established Patient with Karla Amber INTERNET TECHNOLOGY MANAGER 09/04/2018 Last Documented On 9 2:23PM ; [facility] Overweight Medical Established Patient with Karla Amber INTERNET TECHNOLOGY MANAGER 09/04/2018 Last Documented On 9 2:23PM ; [facility] Z68.29 - Body mass index (BM I) 29.0-29.9, adult Medical Established Patient with Karla Amber INTERNET TECHNOLOGY MANAGER 09/04/2018 Last Documented On 9 2:23PM ; [facility] Assess vaginal candidiasis Medical Estab lished Patient with Karla Amber INTERNET TECHNOLOGY MANAGER 07/31/2018 Last Documented On 9 2:12PM ; [facility] Work Phone: Evaluation note* Diagnosis Onset Date Resolution Status MYESHA (acute kidney injury) ac [place] [facility]: Evaluation note* Diagnosis Onset Date Resolution Status Acute psychosis acute MYESHA (acute kidney injury) ac [place] Chronic schizophrenia acute [facility] Work Phone: Evaluation note* Diagnosis Stroke-like symptom- Primary Other symptoms involving nervous and musculoskeletal systems Migraine variant Variants of migraine, not elsewhere classified, without mention of intractable migraine without mention of status migrainosus documented in this encounter [facility]* Diagnosis Transportation unavailable- Primary documented in this encounter [facility]* Diagnosis Gait instability- Primary Abnormality of gait Tardive dyskinesia Subacute dyskinesia due to drugs Psychiatric disturbance Unspecified nonpsychotic mental disorder Attalla use [facility] encounter [facility] Diagnosis Lumbar radiculopathy- Primary Thoracic or lumbosacral neuritis or radiculitis, unspecified documented in this encounter [facility]* Diagnosis Abnormal EKG Nonspecific abnormal electrocardiogram (ECG) (EKG) RBBB Right bundle branch block History of DE (myocardial infarction) Old myocardial infarction Tobacco abuse counseling Counseling on substance use and abuse documented in this encounter [email or web address] HealthHistory and physical note Author Joe rodriguez [facility] August 16, 2023 12:20pm Note Date/Time August 16, 2023 11: 24am [facility] [address] [place] [address] Psychiatry H&P Signed Patient: Gail Almeida MR#: [id number] : 1955 Acct:[id number] Age/Sex: 67 / F Adm Date: 4 Loc: Room: [address] [place] [address] Type: ADM IN Attending Dr: Joe Davis [...] 2 times total 1 time here in [facility] and another time at a different hospital Past suicide attempts: Denies previous suicidal attempts Previous medications: Reports Seroquel, Attalla, Zyprexa, Cogentin Alcohol and Drug Use: Denies alcohol use. Denies street drugs. 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 symptoms: Constitutional: Denies chills and [...] SI, HI, hallucination Insight: Poor Judgment: Poor [facility] Medical History Localized swelling, mass and lump, [...] oral powder 17 g PO DAILY PRN Mfccrrmtirac86/10/23 [History Confirmed 08/15/23] quetiapine 400 mg tablet,extended [...] 08/15/23] dextromethorphan-guaifenesin 30 mg-600 mg tablet extended eyhlcpq40 hr (Mucus DM) 1 tab PO Q12HR [...] Appearance Clear Urine pH 7.0 Ur Specific [place] 1.005 Urine Protein Negative Urine Glucose (UA) Normal Urine Ketones Negative Urine Occult Blood Negative Urine Nitrite Negative Ur Leukocyte Esterase 3+ H Urine RBC None seen Urine WBC 3-4 Attalla 0.50 L Assessment/Plan (1) Schizoaffective disorder: Plan [...] PO BID and 400 mg PO HS Attalla 300 mg PO BID. Obtain lithium level. [...] signed by Joe Davis MD> 08/16/23 1220 [facility] Work Phone: Hisirnp general Narrative - Reported* Type Description Date Medical History asthma Medical History depression Medical History parkinson disease Medical History bipolar Surgical History tubal ligation Surgical History hysterectomy Hospitalization History [facility] Other [facility] Narrative - Reported* Type Description Date Medical History asthma Medical History depression Medical History parkinson disease Medical History bipolar Medical History schizophrenia Medical History migraine headache Medical History COPD Surgical History tubal ligation Surgical History hysterectomy Hospitalization History [facility] Other Hiswiwl general Narrative - Reported Includes: Medical History in patient's chart Description Last Updated 1 previous live (s) 02/28/2023 Last Documented On 3 9:51AM ; [facility] Previously 1 time(s) 02/28/2023 Last Documented On 3 9:51AM ; [facility] Previous hospitalizations 09/18/2022 Last Documented On 3 2:33PM ; [facility] Currently nursing 11/03/2021 Last Documented On 2 7:00PM ; [facility] Partners status unknown for sexually tra nsmitted infection 11/03/2021 Last Documented On 2 7:00PM ; [facility] 11/03/2021 Last Documented On 2 7:00PM ; [facility] Not planning to have a baby in the next 12 months 11/03/2021 Last Documented On 2 7:00PM ; [facility] Heart Attack 03/2021 [facility] 1 07/09/2020 Last Documented On 1 10:59AM ; [facility] A recent immunization for flu 05/06/2020 Last Documented On 0 7:27PM ; [facility] Patient gave verbal consent for teleheal th 08/31/2019 Last Documented On 0 9:21AM ; [facility] History of abnormal electrocardiogram Last Documented On 9 2:12PM ; [facility] History of asthma 07/31/2018 Last Documented On 9 2:12PM ; [facility] History of cardiovascular disorder 07/31 Last Documented On 9 2:12PM ; [facility] History of respiratory disorder 07/31/19 19 Last Documented On 9 2:12PM ; [facility] History of bipolar disorder NOS 07/31/19 19 Last Documented On 9 2:12PM ; [facility] History of depression 07/31/2018 Last Documented On 9 2:12PM ; [facility] History of psychiatric disorders 019 Last Documented On 9 2:12PM ; [facility] Work Phone: History of Present illness Narrative History of Present Illness not supported for this document type No History of Present Illness [facility] Work Phone: Hospital Discharge instructions No data available for this section [facility] instructionsAmbulatory Orders* PT/OT/SP OutPatient Referral Time [...] not already scheduled one. Dr. Emory Adame [facility] [address] [place] [id number] [facility] Work Phone: Hospital Discharge instructions Additional Instructions 1. Supplanted pillows 2. Small amount of Vaseline to sutures twice daily 3. Okay to shower in the morning, keep wound dry and clean 4. Take antibiotics as prescribed 5. Tylenol or Motrin for discomfort 6. [facility] Dr[facility] Work Phone: Instructions Instructions not supported for this document type No Instructions [facility] Work Phone: patient problem outcome Narrative Includes: Evaluations & Outcomes for active Goals No Outcomes [facility]ed[facility] Work Phone: progress note* Progress note Date Encounter Last Documented by 08/27/2022 Medical Established Patient Last documented on 08/27/2022; 8:56 AM, Karla Clark CNP; [facility] Active Problems & Conditions - J45.909 [...] EVERY DAY, 30 days, 11 refills - Attalla Carbonate 300MG Oral Tablet 300 MG take [...] Bipolar disorder NOS Depression Heart Attack 03/2021 [facility]. Surgical: - Hysterectomy Social History Environmental Exposure: [...] BP-Sitting L115/73 mmHg BP Cuff SizeRegular Pulse Rate-Fwokkvi66 bpm Temp-Dznaqvur24 F Xjsscj05 in Bhldtb334 lbs 9.6 oz Body Mass Index24.6 kg/m2 Body Surface Area1.7 m2 Oxygen Bnmuboqqvd37 % General Appearance: - Appears distressed. - [...] and Counseling satisfied 08/27/2022. [facility] note Author Joe rodriguez [facility] August 17, 2023 6:38am Note Date/Time August 17, 2023 6:3 9am [facility] [address] [place] [address] Psychiatry Progress Note Signed Patient: Gail Almeida MR#: [id number] : 1955 Acct:[id number] Age/Sex: 67 / F Adm Date: 4 Loc: Room: [address] [place] [address] Type : ADM IN Attending Dr: Joe [...] 28.6 L TSH 3rd Generation 9.75 H [place] 0.50 L Assessment/Plan Assessment/Plan (1) Schizoaffective disorder: Plan Patient denied any hallucinations this am. No SI/HI. Cogentin 0.5 mg PO BID Clonidine 0.1 mg PO Daily Zyprexa 5 mg PO Daily and 12.5 mg PO QHS Seroquel 12.5 mg PO BID and 400 mg PO HS [place] 300 mg PO BID. Obtain lithium level. [...] signed by Joe Davis MD> 08/17/23 0638 [facility] Work Phone: Progress note Author Joe rodriguez [facility] August 18, 2023 9:29am Note Date/Time August 18, 2023 9:2 9am [facility] [address] [place] [address] Psychiatry Progress Note Signed Patient: Gail Almeida MR#: [id number] : 1955 Acct:[id number] Age/Sex: 67 / F Adm Date: 4 Loc: Room: [address] [place] [address] Type : ADM IN Attending Dr: Joe [...] PO BID and 400 mg PO HS [place] 300 mg PO BID. Obtain lithium level. [...] signed by Joe Davis MD> 08/18/23 0929 [facility] Work Phone: Progress note Author Reynaldo Kraft [facility] August 19, 2023 12:04pm Note Date/Time August 19, 2023 12: 04pm [facility] [address] [place] [address] Psychiatry Progress Note Signed Patient: Gail Almeida MR#: [id number] : 1955 Acct:[id number] Age/Sex: 67 / F Adm Date: 4 Loc: Room: 0R1155-7 Type : ADM IN Attending Dr: Joe [...] PO BID and 400 mg PO HS Att[place] 300 mg PO BID. Cipro 500mg PO BID Continue to monitor mental status Encourage group participation and medication compliance Risk benefits alternatives explained Documented By: Reynaldo Kraft MD 08/19/23 1203 Signed By: <Electronically signed by Reynaldo Kraft MD> 08/19/23 1204 [facility] Work Phone: Progress note* Progress note Date Encounter Last Documented by 06/17/2024 Chart Update Last documented on 06/17/2024; 10:29 AM, Karla Clark CNP; [facility] [...] once daily, 0 days, 0 refills - [place] Carbonate 300 MG Oral Tablet one tablet [...] Bipolar disorder NOS Depression Heart Attack 03/2021 [facility]. Surgical: - General surgery right shoulder ORIF [...] Mammogram: A bilateral screening mammogram was performed 05/29/2024. Advance Directives - Advance Care Planning Care Team - Karla Clark CNP Health Reminders - Mammogram Needed satisfied 05/29/2024. [facility] note Date Encounter Last Documented by 06/17/2024 Chart Update Last documented on 06/17/2024; 11:30 AM, Karla Clark CNP; [facility] Active Problems & Conditions - J45.909 [...] 1 actuation by mouth twice daily (replaces [employer] r/t insurance), 30 days, 11 refills - [...] once daily, 0 days, 0 refills - [place] Carbonate 300 MG Oral Tablet one tablet [...] Bipolar disorder NOS Depression Heart Attack 03/2021 [facility]. Surgical: - General surgery right shoulder ORIF [...] Mammogram: A bilateral screening mammogram was performed 05/29/2024. Plan StartCited- Oth abn and inconclusive findings on dx imaging of breast Outside Diagn Tests/Ultrasound: US Breast Bilateral (27390) Outside Diagn Tests/Imaging: Mammogram - Diagnostic Bilateral (23446) EndCited Advance Directives - Advance Care Planning Care Team - Karla Clark CNP Health Reminders - Mammogram Needed satisfied 05/29/2024. [facility] (narrative)No Reason for Referral RecordedTem[facility] Work Phone: Reason for referral (narrative)* Consultation (Routine) - Pending Review Specialty Diagnoses / Procedures Referred By Oni gardner Referred To Contact Physical Therapy Diagnoses Gait instability Procedures OR OFFICE/OUTPATIENT PENDING SALE TO [facility] MDM 60 MINUTES Lucy Gilbert DO [address] [place] [address] Johan Alvarez, PT [address] [place] [address] Referral ID Status Reason Start Date Expiration Date Visits Requested Visits Authorized [id number] Pending Review Specialty Services Required 02/18/2024 08/16/2024 1 1 [facility] Narrative* Consultation (Routine) - Closed Specialty Diagnoses / Procedures Referred By Oni gardner Referred To Contact Neurology Diagnoses Unspecified abnormalities of gait and mobility Procedures OR OFFICE/OUTPATIENT [facility] MDM 30 MINUTES Vida Culp MD [address] [place] [address] Héctor Vallecillo MD [address] [place] [address] Referral ID Status Reason Start Date Expiration Date Visits Re quested Visits Authorized [id number] Closed 01/29/2024 07/27/2024 1 1 [facility] Narrative* Cardiology (Routine) - Closed Specialty Diagnoses / Procedures Referred By Contac t Referred To Contact Cardiology Diagnoses Abnormal EKG RBBB History of DE (myocardial infarction) Tobacco abuse counseling Procedures Echo (TTE) complete (PRN contrast/bubble/strain/3D) OR ECHO TTHRC R-T 2D W/WOM-MODE COMPL SPEC&COLR D OR TTE W OR WO FOL JULIOCESAR WONG Steven, MD [address] [place] [address] Phone: tel: fax: Referral ID Status Reason Start Date Expiration Date Visits Re quested Visits Authorized [id number] Closed 12/07/2024 12/07/2025 1 1 Charly Potter [facility] Narrative - Reported Review of Systems not supported for this document type No Review of Systems [facility]edHealth [facility] Work Phone: History of Past Illness Name [...] Medical Established Patient with Karla Amber CNP 12/22/2018 Assess routine adult history and physical (18 - 64 yrs) Medical Established Patient with Karla [facility] 11/06/2018 Overweight Medical Established Patient with Karla Amber [facility] 11/06/2018 Z68.28 - Body mass index (BM I) 28.0-28.9, adult Medical Established Patient with Karla [facility] 11/06/2018 Assess dysphagia Medical Established Patient with Karla Amber [facility] 09/11/2018 Assess routine adult history and physical (18 - 64 yrs) Medical Established Patient with Karla Amber [facility] 09/11/2018 Assess primary insomnia with sleep apnea Medical Established Patient with Karla Amber [facility] 09/04/2018 Assess routine adult history and physical (18 - 64 yrs) Medical Established Patient with Karla Amber [facility] 09/04/2018 Overweight Medical Established Patient with Karla Amber [facility] 09/04/2018 Z68.29 - Body mass index (BM I) 29.0-29.9, adult Medical Established Patient with Karla Amber [facility] 09/04/2018 Assess vaginal candidiasis Medical Estab lished Patient with Karla Clark [facility] 07/31/2018 Diagnosis Right foot pain Pain in limb Diagnosis Abnormal mammogram of left breast Findings Encounter Date Occasional asthma CPS Med Review with Karla dinh [facility] 04/23/2019 Overweight CPS Med Review with Karla Clark [facility] 04/23/2019 Z68.27 - Body mass index (BM I) 27.0-27.9 adult CPS Med Review with Karla Clark [facility] 04/23/2019 Acute pharyngitis Medical Established Patient with Brandy Kelley [facility] 04/15/2019 Asthmatic bronchitis with ac [place] exacerbation Medical [facility]2019 Fagerstrom Score was two Medical Establi shed Patient with Brandy Kelley [facility] 04/15/2019 PHQ-9: total score was three 04/15/2019 Medical Established Patient with Brandy Kelley [facility] 04/15/2019 Body mass index Medical Established Patient with Karla Clark [facility] 03/05/2019 Diabetes Risk Test Score was three score Medical Established Patient with Karla Clark [facility] 03/05/2019 Overweight Medical Established Patient with Karla Clark [facility] 03/05/2019 Z68.28 - Body mass index (BM I) 28.0-28.9, adult Medical Established Patient with Karla Clark [facility] 12/22/2018 Assess routine adult history and physical (18 - 64 yrs) Medical Established Patient with Karla Clark [facility] 11/06/2018 Overweight Medical Established Patient with Karla Clark [facility] 11/06/2018 Z68.28 - Body mass index (BM I) 28.0-28.9, adult Medical Established Patient with Karla Clark [facility] 11/06/2018 Assess dysphagia Medical Established Patient with Karla Clark [facility] 09/11/2018 Assess routine adult history and physical (18 - 64 yrs) Medical Established Patient with Karla Clark [facility] 09/11/2018 Assess primary insomnia with sleep apnea Medical Established Patient with Karla Clark [facility] 09/04/2018 Assess routine adult history and physical (18 - 64 yrs) Medical Established Patient with Karla Clark [facility] 09/04/2018 Overweight Medical Established Patient with Karla Clark [facility] 09/04/2018 Z68.29 - Body mass index (BM I) 29.0-29.9, adult Medical Established Patient with Karla Clark [facility] 09/04/2018 Assess vaginal candidiasis Medical Estab lished Patient with Karla Clark [facility] 07/31/2018 Findings Encounter Date Occasional asthma CPS- Asthma Clinic- F/U with Karla Amber [facility] 06/05/2019 Overweight CPS- Asthma Clinic- F/U with Karla Floresen [facility] 06/05/2019 Z68.27 - Body mass index (BM I) 27.0-27.9 adult CPS- Asthma Clinic- F/U with Karla Amber [facility] 06/05/2019 Occasional asthma CPS Med Review with Karla Sandra idnh [facility] 04/23/2019 Overweight CPS Med Review with Karla Amber [facility] 04/23/2019 Z68.27 - Body mass index (BM I) 27.0-27.9 adult CPS Med Review with Karla Amber [facility] 04/23/2019 Acute pharyngitis Medical Established Patient with Brandy Kelley [facility] 04/15/2019 Asthmatic bronchitis with ac [place] exacerbation Medical Established Patient with Brandy Serranoer [facility] 04/15/2019 Fagerstrom Score was two Medical Establi shed Patient with Brandy Serranoer [facility] 04/15/2019 PHQ-9: total score was three 04/15/2019 Medical Established Patient with Brandy Serranoer [facility] 04/15/2019 Body mass index Medical Established Patient with Karla Clark [facility] 03/05/2019 Diabetes Risk Test Score was three score Medical Established Patient with Karla Clark [facility] 03/05/2019 Overweight Medical Established Patient with Karla Clark [facility] 03/05/2019 Z68.28 - Body mass index (BM I) 28.0-28.9, adult Medical Established Patient with Karla Clark [facility] 12/22/2018 Assess routine adult history and physical (18 - 64 yrs) Medical Established Patient with Karla Clark [facility] 11/06/2018 Overweight Medical Established Patient with Karla Clark [facility] 11/06/2018 Z68.28 - Body mass index (BM I) 28.0-28.9, adult Medical Established Patient with Karla Clark [facility] 11/06/2018 Assess dysphagia Medical Established Patient with Karla Floresen [facility] 09/11/2018 Assess routine adult history and physical (18 - 64 yrs) Medical Established Patient with Karla Clark [facility] 09/11/2018 Assess primary insomnia with sleep apnea Medical Established Patient with Karla Amber [facility] 09/04/2018 Assess routine adult history and physical (18 - 64 yrs) Medical Established Patient with Karlajulius Clark INTERNET TECHNOLOGY MANAGER 09/04/2018 Overweight Medical Established Patient with Karlajulius Floresen INTERNET TECHNOLOGY MANAGER 09/04/2018 Z68.29 - Body mass index (BM I) 29.0-29.9, adult Medical Established Patient with Karlajulius Floresen INTERNET TECHNOLOGY MANAGER 09/04/2018 Assess vaginal candidiasis Medical Estab lished Patient with Karlajulius Clark INTERNET TECHNOLOGY MANAGER 07/31/2018 Findings Encounter Date Overweight Medical Established Patient with Karla Floresen [facility] 07/23/2019 Z68.27 - Body mass index (BM I) 27.0-27.9, adult Medical Established Patient with Karlajulius Clark INTERNET TECHNOLOGY MANAGER 07/23/2019 Occasional asthma CPS- Asthma Clinic- F/U with Karla Amber [facility] 06/05/2019 Overweight CPS- Asthma Clinic- F/U with Karla Amber [facility] 06/05/2019 Z68.27 - Body mass index (BM I) 27.0-27.9 adult CPS- Asthma Clinic- F/U with Karla Floresen [facility] 06/05/2019 Occasional asthma CPS Med Review with Karla Sandra dinh [facility] 04/23/2019 Overweight CPS Med Review with Karla Floresen [facility] 04/23/2019 Z68.27 - Body mass index (BM I) 27.0-27.9 adult CPS Med Review with Karla Floresen [facility] 04/23/2019 Acute pharyngitis Medical Established Patient with Brandy Serranoer [facility] 04/15/2019 Asthmatic bronchitis with ac [place] exacerbation Medical Established Patient with Brandy Warren [facility] 04/15/2019 Fagerstrom Score was two Medical Establi shed Patient with Brandy Serranoer [facility] 04/15/2019 PHQ-9: total score was three 04/15/2019 Medical Established Patient with Brandy Warren [facility] 04/15/2019 Body mass index Medical Established Patient with Karla Clark [facility] 03/05/2019 Diabetes Risk Test Score was three score Medical Established Patient with Karla Floresen [facility] 03/05/2019 Overweight Medical Established Patient with Karlajulius Floresen [facility] 03/05/2019 Z68.28 - Body mass index (BM I) 28.0-28.9, adult Medical Established Patient with Karlajulius Floresen [facility] 12/22/2018 Assess routine adult history and physical (18 - 64 yrs) Medical Established Patient with Karla Amber [facility] 11/06/2018 Overweight Medical Established Patient with Karla Amber [facility] 11/06/2018 Z68.28 - Body mass index (BM I) 28.0-28.9, adult Medical Established Patient with Karla Clark INTERNET TECHNOLOGY MANAGER 11/06/2018 Assess dysphagia Medical Established Patient with Karla Clark INTERNET TECHNOLOGY MANAGER 09/11/2018 Assess routine adult history and physical (18 - 64 yrs) Medical Established Patient with Karla Clark [facility] 09/11/2018 Assess primary insomnia with sleep apnea Medical Established Patient with Karlajulius Clark [facility] 09/04/2018 Assess routine adult history and physical (18 - 64 yrs) Medical Established Patient with Karla Amber [facility] 09/04/2018 Overweight Medical Established Patient with Karlajulius Clark [facility] 09/04/2018 Z68.29 - Body mass index (BM I) 29.0-29.9, adult Medical Established Patient with Karlajulius Floresen [facility] 09/04/2018 Assess vaginal candidiasis Medical Estab lished Patient with Karla Floresen [facility] 07/31/2018 Findings Encounter Date Body mass index Medical Established Patient with Karlajulius Floresen [facility] 02/26/2020 Overweight Medical Established Patient with Karlajulius Floresen [facility] 02/26/2020 Overweight Medical Established Patient with Karla Floresen [facility] 07/23/2019 Z68.27 - Body mass index (BM I) 27.0-27.9, adult Medical Established Patient with Karla Floresen [facility] 07/23/2019 Occasional asthma CPS- Asthma Clinic- F/U with Karlajulius Clark [facility] 06/05/2019 Overweight CPS- Asthma Clinic- F/U with Karla Amber [facility] 06/05/2019 Z68.27 - Body mass index (BM I) 27.0-27.9 adult CPS- Asthma Clinic- F/U with Karla Amber [facility] 06/05/2019 Occasional asthma CPS Med Review with Karla Sandra dinh [facility] 04/23/2019 Overweight CPS Med Review with Karla Amber [facility] 04/23/2019 Z68.27 - Body mass index (BM I) 27.0-27.9 adult CPS Med Review with Karlajulius Clark [facility] 04/23/2019 Acute pharyngitis Medical Established Patient with Brandy Kelley INTERNET TECHNOLOGY MANAGER 04/15/2019 Asthmatic bronchitis with ac [place] exacerbation Medical Established Patient with Brandy Warren [facility] 04/15/2019 Fagerstrom Score was two Medical Establi shed Patient with Brandy Kelley INTERNET TECHNOLOGY MANAGER 04/15/2019 PHQ-9: total score was three 04/15/2019 Medical Established Patient with Brandy Kelley INTERNET TECHNOLOGY MANAGER 04/15/2019 Body mass index Medical Established Patient with Karla Clark INTERNET TECHNOLOGY MANAGER 03/05/2019 Diabetes Risk Test Score was three score Medical Established Patient with Karla Clark INTERNET TECHNOLOGY MANAGER 03/05/2019 Overweight Medical Established Patient with Karlajulius Clark INTERNET TECHNOLOGY MANAGER 03/05/2019 Z68.28 - Body mass index (BM I) 28.0-28.9, adult Medical Established Patient with Karla Clark INTERNET TECHNOLOGY MANAGER 12/22/2018 Assess routine adult history and physical (18 - 64 yrs) Medical Established Patient with Karla Amber INTERNET TECHNOLOGY MANAGER 11/06/2018 Overweight Medical Established Patient with Karla Amber INTERNET TECHNOLOGY MANAGER 11/06/2018 Z68.28 - Body mass index (BM I) 28.0-28.9, adult Medical Established Patient with Karla Clark INTERNET TECHNOLOGY MANAGER 11/06/2018 Assess dysphagia Medical Established Patient with Karlajulius Floresen INTERNET TECHNOLOGY MANAGER 09/11/2018 Assess routine adult history and physical (18 - 64 yrs) Medical Established Patient with Karlajulius Clark INTERNET TECHNOLOGY MANAGER 09/11/2018 Assess primary insomnia with sleep apnea Medical Established Patient with Karlajulius Clark INTERNET TECHNOLOGY MANAGER 09/04/2018 Assess routine adult history and physical (18 - 64 yrs) Medical Established Patient with Karla Amber INTERNET TECHNOLOGY MANAGER 09/04/2018 Overweight Medical Established Patient with Karla Floresen INTERNET TECHNOLOGY MANAGER 09/04/2018 Z68.29 - Body mass index (BM I) 29.0-29.9, adult Medical Established Patient with Karla Clark INTERNET TECHNOLOGY MANAGER 09/04/2018 Assess vaginal candidiasis Medical Estab lished Patient with Karlajulius Floresen INTERNET TECHNOLOGY MANAGER 07/31/2018 Findings Encounter Date Encounter for Immunization Nurse Visit with Gary Clark INTERNET TECHNOLOGY MANAGER 03/14/2020 Body mass index Medical Established Patient with Karlajulius Floresen INTERNET TECHNOLOGY MANAGER 02/26/2020 Overweight Medical Established Patient with Karlajulius Floresen INTERNET TECHNOLOGY MANAGER 02/26/2020 Overweight Medical Established Patient with Karla Floresen INTERNET TECHNOLOGY MANAGER 07/23/2019 Z68.27 - Body mass index (BM I) 27.0-27.9, adult Medical Established Patient with Karla Amber INTERNET TECHNOLOGY MANAGER 07/23/2019 Occasional asthma CPS- Asthma Clinic- F/U with Karlajulius Floresen INTERNET TECHNOLOGY MANAGER 06/05/2019 Overweight CPS- Asthma Clinic- F/U with Karlajulius Clark INTERNET TECHNOLOGY MANAGER 06/05/2019 Z68.27 - Body mass index (BM I) 27.0-27.9 adult CPS- Asthma Clinic- F/U with Karla Amber [facility] 06/05/2019 Occasional asthma CPS Med Review with Karla dinh [facility] 04/23/2019 Overweight CPS Med Review with Karla Clark [facility] 04/23/2019 Z68.27 - Body mass index (BM I) 27.0-27.9 adult CPS Med Review with Karla Clark INTERNET TECHNOLOGY MANAGER 04/23/2019 Acute pharyngitis Medical Established Patient with Brandy Kelley [facility] 04/15/2019 Asthmatic bronchitis with ac [place] exacerbation Medical Established Patient with Brandy Kelley INTERNET TECHNOLOGY MANAGER 04/15/2019 Fagerstrom Score was two Medical Establi shed Patient with Brandy Kelley [facility] 04/15/2019 PHQ-9: total score was three 04/15/2019 Medical Established Patient with Brandy Kelley [facility] 04/15/2019 Body mass index Medical Established Patient with Karla Clark [facility] 03/05/2019 Diabetes Risk Test Score was three score Medical Established Patient with Karla Clark [facility] 03/05/2019 Overweight Medical Established Patient with Karla Clark [facility] 03/05/2019 Z68.28 - Body mass index (BM I) 28.0-28.9, adult Medical Established Patient with Karlajulius Clark [facility] 12/22/2018 Assess routine adult history and physical (18 - 64 yrs) Medical Established Patient with Karla Clark [facility] 11/06/2018 Overweight Medical Established Patient with Karla Clark [facility] 11/06/2018 Z68.28 - Body mass index (BM I) 28.0-28.9, adult Medical Established Patient with Karla Clark [facility] 11/06/2018 Assess dysphagia Medical Established Patient with Karla Clark [facility] 09/11/2018 Assess routine adult history and physical (18 - 64 yrs) Medical Established Patient with Karlajulius Clark [facility] 09/11/2018 Assess primary insomnia with sleep apnea Medical Established Patient with Karlajulius Clark [facility] 09/04/2018 Assess routine adult history and physical (18 - 64 yrs) Medical Established Patient with Karlajulius Clark [facility] 09/04/2018 Overweight Medical Established Patient with Karlajulius Clark [facility] 09/04/2018 Z68.29 - Body mass index (BM I) 29.0-29.9, adult Medical Established Patient with Karla Clark [facility] 09/04/2018 Assess vaginal candidiasis Medical Estab lished Patient with Karla Clark [facility] 07/31/2018 Diagnosis Abnormal mammogram Abnormal mammogram, unspecified Diagnosis Abnormal mammogram Abnormal mammogram, unspecified Findings Encounter Date Antiasthmatics [facility] Asthma Clinic-Ne w with Karlajulius Clark INTERNET TECHNOLOGY MANAGER 05/06/2020 Assessment of tobacco use CPS Asthma Cli yash-New with Karlajulius Clakr INTERNET TECHNOLOGY MANAGER 05/06/2020 Body mass index CPS Asthma Clinic-Ne w with Karlajulius Clark [facility] 05/06/2020 Chronic obstructive pulmonary disease CP S Asthma Clinic-New with Karlajulius Clark [facility] 05/06/2020 Overweight CPS Asthma Clinic-Ne w with Karlajulius Clark [facility] 05/06/2020 Z11.4 - Encounter for screen ing for human immunodeficiency virus [HIV] CPS Asthma Clinic-New with Karla Amber [facility] 05/06/2020 Diabetes Risk Test Score was three score 03/31/2020 Medical Established Patient with Karlajulius Clark [facility] 03/31/2020 Overweight Medical Established Patient with Karlajulius Clark [facility] 03/31/2020 Z68.25 - Body mass index [BM I] 25.0-25.9, adult Medical Established Patient with Karlajulius Clark [facility] 03/31/2020 Encounter for Immunization Nurse Visit with Gary Clark [facility] 03/14/2020 Body mass index Medical Established Patient with Karlajulius Clark [facility] 02/26/2020 Overweight Medical Established Patient with Karlajulius Clark [facility] 02/26/2020 Overweight Medical Established Patient with Karlajulius Clark [facility] 07/23/2019 Z68.27 - Body mass index (BM I) 27.0-27.9, adult Medical Established Patient with Karlajulius Clark INTERNET TECHNOLOGY MANAGER 07/23/2019 Occasional asthma CPS- Asthma Clinic- F/U with Karlajulius Clark [facility] 06/05/2019 Overweight CPS- Asthma Clinic- F/U with Karlajulius Clark [facility] 06/05/2019 Z68.27 - Body mass index (BM I) 27.0-27.9 adult CPS- Asthma Clinic- F/U with Karlajulius Clark [facility] 06/05/2019 Occasional asthma CPS Med Review with Karla Clark [facility] 04/23/2019 Overweight CPS Med Review with Karlajulius Clark [facility] 04/23/2019 Z68.27 - Body mass index (BM I) 27.0-27.9 adult CPS Med Review with Karlajulius Clark [facility] 04/23/2019 Acute pharyngitis Medical Established Patient with Brandy Kelley INTERNET TECHNOLOGY MANAGER 04/15/2019 Asthmatic bronchitis with ac [place] exacerbation Medical Established Patient with Brandy Kelley CNP 04/15/2019 Fagerstrom Score was two Medical Establi shed Patient with Brandy Kelley INTERNET TECHNOLOGY MANAGER 04/15/2019 PHQ-9: total score was three 04/15/2019 Medical Established Patient with Brandy Serranoer INTERNET TECHNOLOGY MANAGER 04/15/2019 Body mass index Medical Established Patient with Karla Clark INTERNET TECHNOLOGY MANAGER 03/05/2019 Diabetes Risk Test Score was three score Medical Established Patient with Karla Clark [facility] 03/05/2019 Overweight Medical Established Patient with Karlajulius Clark [facility] 03/05/2019 Z68.28 - Body mass index (BM I) 28.0-28.9, adult Medical Established Patient with Karla Clark INTERNET TECHNOLOGY MANAGER 12/22/2018 Assess routine adult history and physical (18 - 64 yrs) Medical Established Patient with Karlajulius Clark INTERNET TECHNOLOGY MANAGER 11/06/2018 Overweight Medical Established Patient with Karlajulius Clark [facility] 11/06/2018 Z68.28 - Body mass index (BM I) 28.0-28.9, adult Medical Established Patient with Karla Clark [facility] 11/06/2018 Assess dysphagia Medical Established Patient with Karla Clark [facility] 09/11/2018 Assess routine adult history and physical (18 - 64 yrs) Medical Established Patient with Karlajulius Clark [facility] 09/11/2018 Assess primary insomnia with sleep apnea Medical Established Patient with Karlajulius Clark [facility] 09/04/2018 Assess routine adult history and physical (18 - 64 yrs) Medical Established Patient with Karlajulius Clark [facility] 09/04/2018 Overweight Medical Established Patient with Karlajulius Clark [facility] 09/04/2018 Z68.29 - Body mass index (BM I) 29.0-29.9, adult Medical Established Patient with Karla Clark [facility] 09/04/2018 Assess vaginal candidiasis Medical Estab lished Patient with Karlajulius Clark INTERNET TECHNOLOGY MANAGER 07/31/2018 Diagnosis Abnormal ultrasound of breast Other (abnormal) findings on radiological examination of breast Lesion of breast Unspecified breast disorder Diagnosis Hyperprolactinemia (HCC) Other and unspecified anterior pituitary hyperfunction Findings Encounter Date Acute pharyngitis Medical Established Patient with Brandy Serranoer INTERNET TECHNOLOGY MANAGER 04/15/2019 Asthmatic bronchitis with ac [place] exacerbation Medical Established Patient with Brandy Kelley INTERNET TECHNOLOGY MANAGER 04/15/2019 Fagerstrom Score was two Medical Establi shed Patient with Brandy Serranoer INTERNET TECHNOLOGY MANAGER 04/15/2019 PHQ-9: total score was three 04/15/2019 Medical Established Patient with Brandy Kelley [facility] 04/15/2019 Body mass index Medical Established Patient with Karla Clark INTERNET TECHNOLOGY MANAGER 03/05/2019 Diabetes Risk Test Score was three score Medical Established Patient with Karla Clark INTERNET TECHNOLOGY MANAGER 03/05/2019 Overweight Medical Established Patient with Karlajulius Clark [facility] 03/05/2019 Z68.28 - Body mass index (BM I) 28.0-28.9, adult Medical Established Patient with Karla Clark [facility] 12/22/2018 Assess routine adult history and physical (18 - 64 yrs) Medical Established Patient with Karla Amber [facility] 11/06/2018 Overweight Medical Established Patient with Karlajulius Clark INTERNET TECHNOLOGY MANAGER 11/06/2018 Z68.28 - Body mass index (BM I) 28.0-28.9, adult Medical Established Patient with Karla Clark INTERNET TECHNOLOGY MANAGER 11/06/2018 Assess dysphagia Medical Established Patient with Karlajulius Clark [facility] 09/11/2018 Assess routine adult history and physical (18 - 64 yrs) Medical Established Patient with Karla Clark [facility] 09/11/2018 Assess primary insomnia with sleep apnea Medical Established Patient with Karlajulius Clark INTERNET TECHNOLOGY MANAGER 09/04/2018 Assess routine adult history and physical (18 - 64 yrs) Medical Established Patient with Karla Amber INTERNET TECHNOLOGY MANAGER 09/04/2018 Overweight Medical Established Patient with Karla Clark INTERNET TECHNOLOGY MANAGER 09/04/2018 Z68.29 - Body mass index (BM I) 29.0-29.9, adult Medical Established Patient with Karla Clark INTERNET TECHNOLOGY MANAGER 09/04/2018 Assess vaginal candidiasis Medical Estab lished Patient with Karla Clark INTERNET TECHNOLOGY MANAGER 07/31/2018 Findings Encounter Date Z68.24 - Body mass index [BM I] 24.0-24.9, adult Medical Established Patient with Karla Clark [facility] 06/17/2020 Overweight Medical Established Patient with Karla Clark [facility] 06/06/2020 Z68.25 - Body mass index [BM I] 25.0-25.9, adult Medical Established Patient with Karla Clark [facility] 06/06/2020 Antiasthmatics CPS Asthma Clinic-Ne w with Karla Amber [facility] 05/06/2020 Assessment of tobacco use CPS Asthma Cli yash-New with Karla Amber [facility] 05/06/2020 Body mass index CPS Asthma Clinic-Ne w with Karlajulius Clark [facility] 05/06/2020 Chronic obstructive pulmonary disease CP S Asthma Clinic-New with Karlajulius Clark [facility] 05/06/2020 Overweight CPS Asthma Clinic-Ne w with Karla Amber [facility] 05/06/2020 Z11.4 - Encounter for screen ing for human immunodeficiency virus [HIV] CPS Asthma Clinic-New with Karla Floresen [facility] 05/06/2020 Diabetes Risk Test Score was three score 03/31/2020 Medical Established Patient with Karla Amber [facility] 03/31/2020 Overweight Medical Established Patient with Karla Amber [facility] 03/31/2020 Z68.25 - Body mass index [BM I] 25.0-25.9, adult Medical Established Patient with Karla Floresen [facility] 03/31/2020 Encounter for Immunization Nurse Visit with Gary north Amber [facility] 03/14/2020 Body mass index Medical Established Patient with Karla Amber [facility] 02/26/2020 Overweight Medical Established Patient with Karla Amber [facility] 02/26/2020 Overweight Medical Established Patient with Karla Amber [facility] 07/23/2019 Z68.27 - Body mass index (BM I) 27.0-27.9, adult Medical Established Patient with Karla Amber [facility] 07/23/2019 Occasional asthma CPS- Asthma Clinic- F/U with Karla Amber [facility] 06/05/2019 Overweight CPS- Asthma Clinic- F/U with Karla Amber [facility] 06/05/2019 Z68.27 - Body mass index (BM I) 27.0-27.9 adult CPS- Asthma Clinic- F/U with Karla Amber [facility] 06/05/2019 Occasional asthma CPS Med Review with Karla Amber [facility] 04/23/2019 Overweight CPS Med Review with Karla Amber [facility] 04/23/2019 Z68.27 - Body mass index (BM I) 27.0-27.9 adult CPS Med Review with Karlajulius Clark [facility] 04/23/2019 Acute pharyngitis Medical Established Patient with Brandy Kelley [facility] 04/15/2019 Asthmatic bronchitis with ac [place] exacerbation Medical Established Patient with Brandy Serranoer [facility] 04/15/2019 Fagerstrom Score was two Medical Establi shed Patient with Brandy Kelley [facility] 04/15/2019 PHQ-9: total score was three 04/15/2019 Medical Established Patient with Brandy Kelley [facility] 04/15/2019 Body mass index Medical Established Patient with Karlajulius Clark [facility] 03/05/2019 Diabetes Risk Test Score was three score Medical Established Patient with Karlajulius Clark [facility] 03/05/2019 Overweight Medical Established Patient with Karla Amber INTERNET TECHNOLOGY MANAGER 03/05/2019 Z68.28 - Body mass index (BM I) 28.0-28.9, adult Medical Established Patient with Karla Amber INTERNET TECHNOLOGY MANAGER 12/22/2018 Assess routine adult history and physical (18 - 64 yrs) Medical Established Patient with Karla Amber INTERNET TECHNOLOGY MANAGER 11/06/2018 Overweight Medical Established Patient with Karla Amber INTERNET TECHNOLOGY MANAGER 11/06/2018 Z68.28 - Body mass index (BM I) 28.0-28.9, adult Medical Established Patient with Karla Amber INTERNET TECHNOLOGY MANAGER 11/06/2018 Assess dysphagia Medical Established Patient with Karla Amber INTERNET TECHNOLOGY MANAGER 09/11/2018 Assess routine adult history and physical (18 - 64 yrs) Medical Established Patient with Karla Amber INTERNET TECHNOLOGY MANAGER 09/11/2018 Assess primary insomnia with sleep apnea Medical Established Patient with Karla Amber INTERNET TECHNOLOGY MANAGER 09/04/2018 Assess routine adult history and physical (18 - 64 yrs) Medical Established Patient with Karla Abmer INTERNET TECHNOLOGY MANAGER 09/04/2018 Overweight Medical Established Patient with Karla Amber INTERNET TECHNOLOGY MANAGER 09/04/2018 Z68.29 - Body mass index (BM I) 29.0-29.9, adult Medical Established Patient with Karla Amber INTERNET TECHNOLOGY MANAGER 09/04/2018 Assess vaginal candidiasis Medical Estab lished Patient with Karla Amber INTERNET TECHNOLOGY MANAGER 07/31/2018 Findings Encounter Date Diabetes Risk Test Score was three score 03/31/2020 Medical Established Patient with Karla Amber INTERNET TECHNOLOGY MANAGER 03/31/2020 Overweight Medical Established Patient with Karla Amber INTERNET TECHNOLOGY MANAGER 03/31/2020 Z68.25 - Body mass index [BM I] 25.0-25.9, adult Medical Established Patient with Karla Amber INTERNET TECHNOLOGY MANAGER 03/31/2020 Encounter for Immunization Nurse Visit with GaryNicolasa INTERNET TECHNOLOGY MANAGER 03/14/2020 Body mass index Medical Established Patient with Karla Amber INTERNET TECHNOLOGY MANAGER 02/26/2020 Overweight Medical Established Patient with Karla Amber INTERNET TECHNOLOGY MANAGER 02/26/2020 Overweight Medical Established Patient with Karla Amber INTERNET TECHNOLOGY MANAGER 07/23/2019 Z68.27 - Body mass index (BM I) 27.0-27.9, adult Medical Established Patient with Karla Amber INTERNET TECHNOLOGY MANAGER 07/23/2019 Occasional asthma CPS- Asthma Clinic- F/U with Karlajulius Clark INTERNET TECHNOLOGY MANAGER 06/05/2019 Overweight CPS- Asthma Clinic- F/U with Karla Amber [facility] 06/05/2019 Z68.27 - Body mass index (BM I) 27.0-27.9 adult CPS- Asthma Clinic- F/U with Karla Floresen [facility] 06/05/2019 Occasional asthma CPS Med Review with Karla Flores allegra [facility] 04/23/2019 Overweight CPS Med Review with Karla Clark [facility] 04/23/2019 Z68.27 - Body mass index (BM I) 27.0-27.9 adult CPS Med Review with Karla Clark [facility] 04/23/2019 [facility] pharyngitis [facility] Asthmatic bronchitis with ac [place] exacerbation [facility] Fagerstrom Score was two Medical Establi shed Patient with Brandy Kelley [facility] 04/15/2019 PHQ-9: total score was three 04/15/2019 [facility] Body mass index Medical Established Patient with Karla Clark [facility] 03/05/2019 Diabetes Risk Test Score was three score Medical Established Patient with Karla Clark [facility] 03/05/2019 Overweight Medical Established Patient with Karla Clark [facility] 03/05/2019 Z68.28 - Body mass index (BM I) 28.0-28.9, adult Medical Established Patient with Karla Clark [facility] 12/22/2018 Assess routine adult history and physical (18 - 64 yrs) Medical Established Patient with Karla Clark [facility] 11/06/2018 Overweight Medical Established Patient with Karla Clark [facility] 11/06/2018 Z68.28 - Body mass index (BM I) 28.0-28.9, adult Medical Established Patient with Karla Clark [facility] 11/06/2018 Assess dysphagia Medical Established Patient with Karla Clark [facility] 09/11/2018 Assess routine adult history and physical (18 - 64 yrs) Medical Established Patient with Karla Clark [facility] 09/11/2018 Assess primary insomnia with sleep apnea Medical Established Patient with Karla Clark [facility] 09/04/2018 Assess routine adult history and physical (18 - 64 yrs) [facility]2018 Z68.29 - Body mass index (BM I) 29.0-29.9, adult Medical Established Patient with Karla Clark [facility] 09/04/2018 Assess vaginal candidiasis Medical Estab lished Patient with Karlajulius Clark INTERNET TECHNOLOGY MANAGER 07/31/2018 Diagnosis Duct ectasia of breast, left Findings Encounter Date Body mass index Medical Established Patient with Karlajulius Clark INTERNET TECHNOLOGY MANAGER 03/05/2019 Diabetes Risk Test Score was three score Medical Established Patient with Karla Amber INTERNET TECHNOLOGY MANAGER 03/05/2019 Overweight Medical Established Patient with Karla Amber INTERNET TECHNOLOGY MANAGER 03/05/2019 Z68.28 - Body mass index (BM I) 28.0-28.9, adult Medical Established Patient with Karla Amber INTERNET TECHNOLOGY MANAGER 12/22/2018 Assess routine adult history and physical (18 - 64 yrs) Medical Established Patient with Karla Amber INTERNET TECHNOLOGY MANAGER 11/06/2018 Overweight Medical Established Patient with Karla Amber INTERNET TECHNOLOGY MANAGER 11/06/2018 Z68.28 - Body mass index (BM I) 28.0-28.9, adult Medical Established Patient with Karla Amber INTERNET TECHNOLOGY MANAGER 11/06/2018 Assess dysphagia Medical Established Patient with Karla Amber INTERNET TECHNOLOGY MANAGER 09/11/2018 Assess routine adult history and physical (18 - 64 yrs) Medical Established Patient with Karla Amber INTERNET TECHNOLOGY MANAGER 09/11/2018 Assess primary insomnia with sleep apnea Medical Established Patient with Karla Amber INTERNET TECHNOLOGY MANAGER 09/04/2018 Assess routine adult history and physical (18 - 64 yrs) Medical Established Patient with Karla Amber INTERNET TECHNOLOGY MANAGER 09/04/2018 Overweight Medical Established Patient with Karla Amber INTERNET TECHNOLOGY MANAGER 09/04/2018 Z68.29 - Body mass index (BM I) 29.0-29.9, adult Medical Established Patient with Karlajulius Clark INTERNET TECHNOLOGY MANAGER 09/04/2018 Assess vaginal candidiasis Medical Estab lished Patient with Karlajulius Clark INTERNET TECHNOLOGY MANAGER 07/31/2018 Instructions Instructions not supported for this [...] 07/31/2018 Last Documented On 9 2:12PM ; [facility] Description Last Updated No significant medical history in nuclea r family 07/31/2018 Last Documented On 9 2:12PM ; [facility] Description Last Updated No significant medical history in nuclea r family 07/31/2018 Last Documented On 9 2:12PM ; [facility] Description Last Updated No significant medical history in nuclea r family 07/31/2018 Last Documented On 9 2:12PM ; [facility] Relationship Condition Age at Onset Recorded Date/T aviva Not Specified Intellectual disability Unknown father History of coronary artery stent placement Unknown Coronary artery disease Unknown Not Specified Recurrent cerebrovas cular accidents (CVAs) Unknown brother Congestive heart failure Unknown Muscular dystrophy Unknown Description Last Updated No significant medical history in nuclea r family 07/31/2018 Last Documented On 9 2:12PM ; [facility] Description Last Updated Maternal history of breast neoplasm 02/02 Last Documented On 3 9:51AM ; [facility] No significant medical history in nuclea r family 07/31/2018 Last Documented On 9 2:12PM ; [facility] Relationship Condition Age at Onset Recorded Date/T aviva father History of coronary artery stent placement Unknown Coronary artery disease Unknown Not Specified Recurrent cerebrovas cular accidents (CVAs) Unknown brother Congestive heart failure Unknown Muscular dystrophy Unknown Description Last Updated Maternal history of breast neoplasm 02/02 Last Documented On 3 9:51AM ; [facility] No significant medical history in nuclea r family 07/31/2018 Last Documented On 9 2:12PM ; [facility] Relationship Condition Age at Onset Recorded Date/T aviva father History of coronary artery stent placement Unknown Coronary artery disease Unknown Not Specified Recurrent cerebrovas cular accidents (CVAs) Unknown brother Congestive heart failure Unknown Muscular dystrophy Unknown brother Unknown Heart disease Unknown Not Specified Malignant neoplasm Unknown Description Last Updated Maternal history of breast neoplasm 02/02 Last Documented On 3 9:51AM ; [facility] No significant medical history in nuclea r family 07/31/2018 Last Documented On 9 2:12PM ; [facility] Description Last Updated Maternal history of breast neoplasm 02/02 Last Documented On 3 9:51AM ; [facility] No significant medical history in nuclea r family 07/31/2018 Last Documented On 9 2:12PM ; [facility] Description Last Updated Maternal history of breast neoplasm 02/02 Last Documented On 3 9:51AM ; [facility] No significant medical history in nuclea r family 07/31/2018 Last Documented On 9 2:12PM ; [facility] Relationship Condition Age at Onset Recorded Date/T aviva father History of coronary artery stent placement Unknown Coronary artery disease Unknown mother Recurrent cerebrovas cular accidents (CVAs) Unknown brother Congestive heart failure Unknown Muscular dystrophy Unknown brother Unknown Heart disease Unknown mother Malignant neoplasm Unknown Description Last Updated Maternal history of breast neoplasm 02/02 Last Documented On 3 9:51AM ; [facility] No significant medical history in nuclea r family 07/31/2018 Last Documented On 9 2:12PM ; [facility] Description Last Updated Maternal history of breast neoplasm 02/02 Last Documented On 3 9:51AM ; [facility] No significant medical history in nuclea r family 07/31/2018 Last Documented On 9 2:12PM ; [facility] Description Last Updated Maternal history of breast neoplasm 02/02 Last Documented On 3 9:51AM ; [facility] No significant medical history in nuclea r family 07/31/2018 Last Documented On 9 2:12PM ; [facility] Review of System Review of Systems [...] FoundDocuments on File Type Date Recorded Patient Substation Inspector Expl anation ACP-Power of Fiscal Accountant 08/01/2021 10:21 AM Date Activated Date Inactivated Comments 03/23/2013 12:03 AM 03/23/2013 7:42 PM Documents on File Type Date Recorded Patient Substation Inspector Expl anation ACP-Power of Fiscal Accountant 08/01/2021 10:21 AM Latest Code Status on File Code Status Date Activated Date Inactivated Comments Full Code 03/23/2013 12:03 AM 03/23/2013 7:42 PM Documents on File Type Date Recorded Patient Substation Inspector Expl anation Advance Directives and Living Will Power of Fiscal Accountant Latest Code Status on File Code Status Date Activated Date Inactivated Comments Full Code 03/23/2013 12:03 AM 03/23/2013 7:42 PM Documents on File Type Date Recorded Patient Substation Inspector Expl anation Advance Directives and Living Will Power of Fiscal Accountant Documents on File Type Date Recorded Patient Substation Inspector Expl anation ACP-Advance Directive ACP-Power of Fiscal Accountant Documents on File Type Date Recorded Patient Substation Inspector Expl anation ACP-Advance Directive ACP-Power of Fiscal Accountant Documents on File Type Date Recorded Patient Substation Inspector Expl anation ACP-Advance Directive ACP-Power of Fiscal Accountant ACP-Power of Fiscal Accountant 08/01/2021 10:21 AM Documents on File Type Date Recorded Patient Substation Inspector Expl anation ACP-Advance Directive ACP-Power of Fiscal Accountant ACP-Power of Fiscal Accountant 08/01/2021 10:21 AM Directive Pat Aware Third Republican Effective Date Reviewed Sta tus Advance Care Planning Yes 11/03/2021 Current and Verified Note: Discussed with patient about care planning in the future. Gave patient informational packet and was advised to fill out and bring back at next appointment. Advance Directive Response Recorded Date/ Time Advance Directives No September 10, 023 2:51pm Advance Directive Response Recorded Date/ Time Advance Directives No September 13, 2 023 7:15am Date Activated Date Inactivated Comments 03/23/2013 12:03 AM 03/23/2013 7:42 PM Discharge Instructions * Instructions* aMrina Ag I, RN - 04/10/2019 DISCHARGE INSTRUCTIONS [...] common and can be relieved with an memp-gfh-mdveebn (non-aspirin) analgesic such as Tylenol. Please follow [...] in this encounter* Instructions* Marina Ag I, RN - 06/08/2020 DISCHARGE INSTRUCTIONS FOR BREAST [...] common and can be relieved with an aioj-xhj-mbxqmqu (non-aspirin) analgesic such as Tylenol. Pleasefollow the [...] HC US BREAST COMP Billy Ojeda MD [address] [place] [address] [address] [place] [address] [facility] [address] [place] [address] Status Reason Specialty Diagnoses / Procedures Referre d By Contact Referred To Contact Closed Radiology Diagnoses Abnormal mammogram Procedures LINDA DIGITAL DIAGNOSTIC W OR WO CAD LEFT Billy Ojeda MD [address] [place] [address] [address] [place] [address] Status Reason Specialty Diagnoses / Procedures Referre d By Contact Referred To Contact Closed Radiology Diagnoses Hyperprolactinemia (HCC) Procedures MRI BRAIN W WO CONTRAST Karla Clark, PALLIATIVE NURSE - INTERNET TECHNOLOGY MANAGER [address] [place] [address] Status Reason Specialty Diagnoses / Procedures Referre d By Contact Referred To Contact Open Diagnoses Duct ectasia of breast, left Procedures US BREASt COMPLETE LEFT HC US BREAST COMP She Spencer APRN - CNM [address] [place] [address] Status Reason Specialty Diagnoses / Procedures Referre d By Contact Referred To Contact Closed Radiology Diagnoses History of breast biopsy Procedures LINDA ERYN DIGITAL DIAGNOSTIC BILATERAL She Spencer, PALLIATIVE NURSE - CNM [address] [place] [address] [facility] [address] [place] [address] [facility] [address] [place] [address] Specialty Diagnoses / Procedures Referred By Contac t Referred To Contact Radiology Diagnoses Breast lump on right side at 4 o'clock position Procedures MRI BREAST BILATERAL W CONTRAST She Spencer, RODNEY - ADAM [address] [facility] [address] [place] [address] Referral ID Status Reason Start Date Expiration Date Visits Re quested Visits Authorized [id number] Closed 07/19/2021 07/19/2022 1 1 Specialty Diagnoses / Procedures Referred By Contac t Referred To Contact Cardiology Diagnoses Pre-operative clearance Abnormal EKG History of DE (myocardial infarction) Procedures ECHO Complete 2D W Doppler W Color Héctor Turner MD [address] [place] [address] Referral ID Status Reason Start Date Expiration Date Visits Re quested Visits Authorized [id number] Closed 01/01/2022 01/01/2023 1 1 Summary Purpose [...] Nausea & vomiting Schizoaffective disorder Chief Complaint [facility] Reason for Visit Acute psychosis Chronic schizophrenia Chief Complaint [facility] See order Reason for Visit Acute psychosis Chronic schizophrenia Schizoaffective disorder Chief Complaint [facility] Reason for Visit MYESHA (acute kidney in jury) Schizoaffective disorder Chief Complaint [facility] Reason for Visit Acute psychosis MYESHA [...] EACH ADDL LESION LEFT Billy Ojeda MD [address] [place] [address] Status Reason Specialty Diagnoses / Procedures Referre d By Contact Referred To Contact Closed Radiology Diagnoses Abnormal mammogram Procedures US BREAST COMPLETE LEFT HC US BREAST COMP Billy Ojeda MD [address] [place] [address] [facility] [address] [place] [address] Status Reason Specialty Diagnoses / Procedures Referred By Contact Referred To Contact Pending Review Radiology Diagnoses Abnormal mammogram Procedures LINDA ERYN DIGITAL DIAGNOSTIC BILATERAL LINDA DIGITAL DIAGNOSTIC W OR WO CAD LEFT HC MAMMO DGX UNILATERAL INCL CAD IF PERF Billy Ojeda MD [address] [place] [address] [facility] [address] [place] [address] Status Reason Specialty Diagnoses / Procedures Referre d By Contact Referred To Contact Open Radiology Diagnoses Abnormal ultrasound of breast Lesion of breast Procedures US BREAST BIOPSY W LOC DEVICE 1ST LESION LEFT US GUIDED LEFT BREAST BIOPSY Billy Ojeda MD [address] [place] [address] [facility] [address] [place] [address] Status Reason Specialty Diagnoses / Procedures Referre d By Contact Referred To Contact Closed Radiology Diagnoses Abnormal mammogram Procedures LNIDA DIGITAL DIAGNOSTIC W OR WO CAD LEFT Billy Ojeda MD [address] [place] [address] [address] [place] [address] Status Reason Specialty Diagnoses / Procedures Referred By Contact Referred To Contact Pending Review Radiology Diagnoses Hyperprolactinemia Procedures HC MRI-BRAIN WO & W CONTRAST Karla Clark, PALLIATIVE NURSE - INTERNET TECHNOLOGY MANAGER [address] [place] [address] [facility] [address] [place] [address] Status Reason Specialty Diagnoses / Procedures Referre d By Contact Referred To Contact Open Diagnoses Duct ectasia of breast, left Procedures US BREASt COMPLETE LEFT HC US BREAST COMP She Spencer APRN - CN [address] [place] [phone] Status Reason Specialty Diagnoses / Procedures Referre d By Contact Referred To Contact Closed Radiology Diagnoses History of breast biopsy Procedures [facility] ERYN DIGITAL DIAGNOSTIC BILATERAL She Spencer APRN - CNM [address] [place] [address] Dr [address] [place] [address] [facility] [address] [place] [address] Specialty Diagnoses / Procedures Referred By Contac t Referred To Contact Radiology Diagnoses Breast lump on right side at 4 o'clock position Procedures MRI BREAST BILATERAL W CONTRAST She Spencer APRN - CNAlexey [address] [place] [address] Dr [address] [place] [address] Referral ID Status Reason Start Date Expiration Date Visits Re quested Visits Authorized [id number] Closed 07/19/2021 07/19/2022 1 1 Specialty Diagnoses / Procedures Referred By Contac t Referred To Contact Cardiology Diagnoses Pre-operative clearance Abnormal EKG History of DE (myocardial infarction) Procedures ECHO Complete 2D W Doppler W Color Héctor Turner MD [address] [place] [address] Referral ID Status Reason Start Date Expiration Date Visits Re quested Visits Authorized [id number] Closed 01/01/2022 01/01/2023 1 1 Specialty Diagnoses / Procedures Referred By Contac t Referred To Contact Dermatology Diagnoses neoplasm of uncertain behavior of skin Karla Clark MD [address] [place] [address] Dakota Mack MD [address] [place] [address] Referral ID Status Reason Start Date Expiration Date Visits Re quested Visits Authorized [id number] Closed 06/13/2023 12/10/2023 1 1 Reason Comments Patient Question Reason Comments Follow Up Reason Onset Date Comments Seek NC/NS 03/05/2024 Contact 03/06 and ask for update on status and note need of guarentee of being present for PT Eval to enable a rs. FU 03/09/2024 Contacted to req uest status of Gail in regards to Miguel was notified she was transferred over. I spoke to nurse and she said reading paperwork it details she had an PT screening there at [facility]; she replied she is going to look into and contact me back re: OP PT. Reason Comments Altered Mental Status Reason Comments Needs transport to [facility] Medical History (unrecognize d section and content) Description Patient gave verbal consent for [facility] 08/31/2019 History of abnormal electrocardiogram History of asthma 07/31/2018 History of cardiovascular disorder 07/31 History of respiratory disorder 07/31/19 19 History of bipolar disorder NOS 07/31/19 19 History of depression 07/31/2018 History of psychiatric disorders 019 Description Last Updated A recent immunization for flu 05/06/2020 Patient gave verbal consent for [facility] 08/31/2019 History of abnormal electrocardiogram History of [...] Member Role Status Dates Karla Clark APRN WEB FEEDER-C Primary Care Provider Activ e Start: November [...] Member Role Status Dates Karla Clark APRN WEB FEEDER-C Primary Care Provider Activ e Team Status: Active Member Role Status Dates Karla Clark APRN WEB FEEDER-C Primary Care Provider Activ e Monster Davis MD Attending Provider Active Team Status: Inactive Member Role Status Dates Karla Clark APRN WEB FEEDER-C Primary Care Provider Activ e Emory Adame DO Attending Provider Active Operations Vice President Relationship Specialty Start Date End Date Karla Clark APRN - INTERNET TECHNOLOGY MANAGER [address] [phone] PCP - General 02/23/16 Operations Vice President Relationship Specialty Start Date End Date Karla Clark, PALLIATIVE NURSE - INTERNET TECHNOLOGY MANAGER [address] [place] [address] PCP - General 02/23/16 Operations Vice President Relationship Specialty Start Date End Date Karla Clark, PALLIATIVE NURSE - INTERNET TECHNOLOGY MANAGER [address] [place] [address] PCP - General 02/23/16 Operations Vice President Relationship Specialty Start Date End Date Karla Clark, PALLIATIVE NURSE - INTERNET TECHNOLOGY MANAGER [address] [place] [address] PCP - General 02/23/16 Team Status: Inactive Member Role Status Dates Emory Adame , DO Attending Provider Active Team Status: Inactive Member Role Status Dates Emory Adame , DO Attending Provider Active Karla Blackburn Amber , RODNEY WEB FEEDER-C Primary Care Provider Activ e Team Status: Inactive Member Role Status Dates Emory Adame , DO Attending Provider Active PHYSICIAN NO FAMILY Primary Care Provider Active Team Status: Inactive Member Role Status Dates Karla Blackburn Amber , RODNEY WEB FEEDER-C Primary Care Provider Activ e Zak Reza [...] RN Other Provider Active Ana Milan , PALLIATIVE NURSE Other Provider Active Barbie Choi , DO [...] MD Other Provider Active Roseline Aguilar , WEB FEEDER-C Other Provider Active Jaswinder Robert MD Other Provider Active Titus Christianson MD Other Provider Active Kody Leon MD Other Provider Active Gibson Cid MD Other Provider Active Yolanda Davila , DO Other Provider Active Jeancarlos Bonilla , DO Other Provider Active Scottie Quinn , DO Other Provider Active Maddy Hallman , PALLIATIVE NURSE Other Provider Active Jose Huang , DO Other Provider Active Naga Lundberg MD Other Provider Active Leny Spencer , PALLIATIVE NURSE Other Provider Active Winnie Jenkins , PALLIATIVE NURSE Other Provider Active Greg Ocampo MD Other Provider Active Loy Rivers MD Other Provider Active Ludwig Amador , DO Other Provider Active Pinky Jewell , PALLIATIVE NURSE Other Provider Active Alice Grimaldo , TAWANNA Other Provider Active Team Status: Inactive Member Role Status Dates NON STAFF Primary Care Provider Active Joe Davis MD Admit Provider, Attending P ummder Active Cecilia Soares , RN Other Provider Active Florencia Pizarro , RN Other Provider Active Stacey Hudson , RN Other Provider Active Ann-Marie Sams , RN Other Provider Active Lisseth Galvan , TAWANNA Other Provider Active Ragini Quiñonez , TAWANNA Other Provider Active Chris Adam MD Other Provider Active Ana Milan , PALLIATIVE NURSE Other Provider Active Barbie Choi , DO Other Provider Active Braden Dill MD Other Provider Active Chandu Villafana , DO Other Provider Active Thomas Mendez MD Other Provider Active Kathrine Naik MD Other Provider Active Mariana Pryor , PALLIATIVE NURSE Other Provider Active Angel Haley MD Other Provider Active Link Salazar MD Other Provider Active Rosa Lowe MD Other Provider Active Brad Peng MD Other Provider Active Khalif Pettit , DO Other Provider Active Sherif Campbell MD Other Provider Active Francisco Keene MD Other Provider Active Roseline Aguilar , WEB FEEDER-C Other Provider Active Jaswinder Robert MD Other Provider Active Titus Christianson MD Other Provider Active Kody Leon MD Other Provider Active Gibson Cid MD Other Provider Active Yolanda Davila , DO Other Provider Active Jeancarlos R Chad , DO Other Provider Active Scottie Quinn , DO Other Provider Active Maddy Hallman , PALLIATIVE NURSE Other Provider Active Jose Huang , DO Other Provider Active Naga Lundberg MD Other Provider Active Leny Spencer , PALLIATIVE NURSE Other Provider Active Winnie Jenkins , PALLIATIVE NURSE Other Provider Active Greg Ocampo MD Other Provider Active Loy Rivers MD Other Provider Active Ludwig Amador , DO Other Provider Active Pinky Jewell , PALLIATIVE NURSE Other Provider Active London Mccann , DO [...] RN Other Provider Active Ana Milan , PALLIATIVE NURSE Other Provider Active Barbie Choi , DO Other Provider Active Braden Dill MD Other Provider Active Chandu Villafana , DO Other Provider Active Thomas Mendez MD Other Provider Active Kathrine Naik MD Other Provider Active Mariana Pryor , PALLIATIVE NURSE Other Provider Active Angel Haley MD Other Provider Active Link Salazar MD Other Provider Active Rosa Lowe MD Other Provider Active Brad Peng MD Other Provider Active Khalif Pettit , DO Other Provider Active Sherif Campbell MD Other Provider Active Francisco Keene MD Other Provider Active Roseline Aguilar , WEB FEEDER-C Other Provider Active Jaswinder Robert MD Other Provider Active Titus Christianson MD Other Provider Active Kody Leon MD Other Provider Active Gibson Cid MD Other Provider Active Yolanda Davila , DO Other Provider Active Jeancarlos R Chad , DO Other Provider Active Scottie Quinn , DO Other Provider Active Maddy Hallman , PALLIATIVE NURSE Other Provider Active Jose Huang , DO Other Provider Active Naga Lundberg MD Other Provider Active Leny Spencer , PALLIATIVE NURSE Other Provider Active Winnie Jenkins , PALLIATIVE NURSE Other Provider Active Greg Ocampo MD Other Provider Active Loy Rivers MD Other Provider Active Ludwig Amador , DO Other Provider Active Pinky Jewell , PALLIATIVE NURSE Other Provider Active Alice Grimaldo RN Other Provider Active Team Status: Inactive Member Role Status Dates NON STAFF Primary Care Provider Active Start: August 20, 2023 End: August 20, 2023 Alannah James , Attending Provider Active S tart: August 20, 2023 End: August 20, 2023 Operations Vice President Relationship Specialty Start Date End Date Deepti Britt MD [address] [place] [address] Referring Ent - Otolaryngology 01/25/23 Operations Vice President Relationship Specialty Start Date End Date Deepti Britt MD [address] [place] [address] Referring Ent - Otolaryngology 01/25/23 Team Status: [...] Other Provider Active Start: December 18, 2023 Operations Vice President Relationship Specialty Start Date End Date Kentrell Hurley DO [address] [place] [address] PCP - General Family Medicine 02/18/24 Karla Clark MD [address] [place] [address] Referring Physician Family Medicine 08/28/23 Operations Vice President Relationship Specialty Start Date End Date Karla Clark APRN - INTERNET TECHNOLOGY MANAGER [address] [place] [address] PCP - General 02/23/16 Operations Vice President Relationship Specialty Start Date End Date Karla Clark APRN - INTERNET TECHNOLOGY MANAGER [address] [place] [address] PCP - General 02/23/16 Operations Vice President Relationship Specialty Start Date End Date Kentrell Hurley DO [address] [facility] [address] [place] [address] PCP - General Family Medicine 02/18/24 Karla Clark MD [facility] [place] [address] Referring Physician Family Medicine 08/28/23 Operations Vice President Relationship Specialty Start Date End Date Kentrell Hurley DO [address] [facility] [address] [place] [address] PCP - General Family Medicine 02/18/24 Karla Clark MD [address] [place] [address] Referring Physician Family Medicine 08/28/23 Operations Vice President Relationship Specialty Start Date End Date Kentrell Hurley DO [address] [facility] [address] [place] [address] PCP - General Family Medicine 02/18/24 Karla Clark MD [address] [place] [address] Referring Physician Family Medicine 08/28/23 Operations Vice President Relationship Specialty Start Date End Date Kentrell Hurley DO [address] [facility] [address] [place] [address] PCP - General Family Medicine 02/18/24 Karla Clark MD [address] [place] [address] Referring Physician Family Medicine 08/28/23 Operations Vice President Relationship Specialty Start Date End Date Moe Avila DO [address] [facility] [address] PCP - General Family Medicine 12/17/24 INFORMATION SOURCE (unrecogn ized section and content) DATE CREATED AUTHOR 10/26/2021 [facility] DATE CREATED AUTHOR AUTHOR'S ORGANIZ ATION 11/10/2022 [facility] DATE CREATED AUTHOR AUTHOR'S ORGANIZ ATION 06/05/2023 [facility] DATE CREATED AUTHOR AUTHOR'S ORGANIZ ATION 09/29/2023 [facility] DATE CREATED AUTHOR AUTHOR'S ORGANIZ ATION 02/27/2024 [facility] DATE CREATED AUTHOR AUTHOR'S ORGANIZ ATION 06/14/2024 [facility] DATE CREATED AUTHOR AUTHOR'S ORGANIZ ATION 10/27/2024 [facility] DATE CREATED AUTHOR AUTHOR'S ORGANIZ ATION 12/11/2024 [facility] DATE CREATED AUTHOR AUTHOR'S ORGANIZ ATION 12/20/2024 [facility] Goals (unrecognized section and content) Goals may be documented in a n alternate section Source Comments (unrecognize d section and content) In the event this informatio n is protected by the Federal Confidentiality of Alcohol and Drug Abuse Patient Records regulations: The Federal rules restrict any use of the information to criminally investigate or prosecute any alcohol or drug abuse patient.[facility] the event this information is protected by the Federal Confidentiality of Alcohol and Drug Abuse Patient Records regulations: The Federal rules restrict any use of the information to criminally investigate or prosecute any alcohol or drug abuse patient.[facility] Scheduled Active and Recently Administ ered [...] 2326 (Given - Provider: Jessa Serrano, TAWANNA) benztropine (COGENTIN) tablet 0.5 mg (COMPLETED) 0.5 [...] BE BASED ON THE PRIMARY CLINICAL RECORDS. [employer] [facility]. provides no warranty or guarantee of the accuracy or completeness of information in this document.
== END 2025-02-08 11:56 | disposition home or self-care (01) ==
LOC: RAD 11:55
PROVIDERS: PCP Nurse Practitioner Family; Visit Provider Orthopaedic Surgery Orthopaedic Trauma
DX: S42.201D Unspecified fracture of upper end of right humerus, subsequent encounter for fracture with routine healing (principal); Z98.890 Other specified postprocedural states
CPT/HCPCS: 73030

== ENCOUNTER 2025-02-17 22:38 | Outpatient (REF) | payer MEDICARE, MEDICAID, SELFPAY ==
--- OUTSIDE RECORDS SUMMARY | 2013-11-18 01:19 | XMS_ITS | Encounter Summary ---
Author Organization [facility] Address [address], [address] [place] [address] Care Team Providers Care Prepared Foods Team Leader Name Role Phone MoisesNoe arcos Primary Care Provider [phone] Encounter Details Date Type Department Care Team (Late st Contact Info) Description 11/18/2013 1:19 AM EDT Hospital Encounter [facility] [address] [place], [place] [phone] Bety Munoz MD [address] [place], [place] [phone] Social History Tobacco Use Types Packs/Day Years [...] Care Team (Late st Contact Info) Description 04/19/2025 2:30 PM EST Office Visit [facility] [address] [facility] [address] - [address], [address] [place] [address] Paramjit Olvera MD [address] [facility] [place] [address] 3 month follow up documented as of [...] 173 <200 mg/dL 11/18/2013 9:24 AM EDT [facility] Comment: Cholesterol Guidelines: <200 Desirable 200-240 Borderline >240 Undesirable HDL 57 >40 mg/dL 11/18/2013 9:24 AM EDT [facility] Comment: HDL Guidelines: <40 Undesirable 40-59 Borderline >59 Desirable LDL Cholesterol 87 0 - 130 mg/dL 11/18/2013 9:24 AM EDT [facility] Comment: LDL Guidelines: <100 Desirable 100-129 Near to/above Desirable 130-159 Borderline >159 Undesirable Direct (measured) LDL and calculated LDL are not interchangeable tests. Chol/HDL Ratio 3.0 <5 11/18/2013 9:24 AM EDT [facility] Triglycerides 144 <150 mg/dL 11/18/2013 9:24 AM EDT [facility] Comment: Triglyceride Guidelines: <150 Desirable 150-199 Borderline 200-499 High >499 Very high Based on AHA Guidelines for fasting triglyceride, March 2012. VLDL 29 1 - 30 mg/dL 11/18/2013 9:24 AM EDT [facility] Comment: Performed at [address] [place] [address] ([phone] 11/18/2013 8:11 AM EDT 11/18/2013 8:12 AM EDT Bety Munoz MD CHEMISTRY ORDERABLES Final Res ult Performing Organization Address [facility]/ZIP Co de Phone Number [facility] [address] [place] [id number] [phone] [facility] * [place] level (11/18/2013 8:11 AM EDT) [place] Lvl 0.8 0.6 - 1.2 mmol/L 11/18/2013 9:36 AM EDT [facility] [place] Dose Amount 0730 11/18/2013 8:18 AM EDT [facility] [place] Date Last Dose [phone] 11/18/2013 8:18 AM EDT [facility] [place] Dose Time 300 11/18/2013 8:18 AM EDT [facility] Comment: Performed at [address] [place] [address] ([phone] 11/18/2013 8:11 AM EDT 11/18/2013 8:12 AM EDT us Bety Munoz MD CHEMISTRY ORDERABLES Edited Re sult - Final Performing Organization Address [facility]/ZIP Co de Phone Number [facility] [address] [place] [id number] [phone] [facility] * (ABNORMAL) Glucose, random (11/18/2013 8:11 AM EDT) Glucose 101(H) 70 - 99 mg/dL 11/18/2013 9:24 AM EDT [facility] Comment: Performed at [address] [place] [address] ([phone] 11/18/2013 8:11 AM EDT 11/18/2013 8:12 AM EDT us Bety Munoz MD CHEMISTRY ORDERABLES Final Res ult Performing Organization Address City/[facility]/ZIP Co de Phone Number [facility] [address] [place] [id number] [phone] [facility] * Creatinine, serum (11/18/2013 8:11 AM EDT) Creatinine 0.84 0.50 - 0.90 mg/dL 11/18/2013 9:24 AM EDT [facility] GFR Non- >60 >60 mL/min 11/18/2013 9:24 AM EDT [facility] GFR >60 >60 mL/min 11/18/2013 9:24 AM EDT [facility] GFR Comment 11/18/2013 9:24 AM EDT [facility] Comment: Average GFR for 50-59 years old: 93 mL/min/1.73sq m Chronic Kidney Disease: <60 mL/min/1.73sq m Kidney failure: <15 mL/min/1.73sq m GFR Staging 11/18/2013 9:24 AM EDT [facility] Comment: Stage 1: Some kidney damage normal GFR Stage 2: Mild kidney damage GFR 60-89 Stage 3: Moderate kidney damage GFR 30-59 Stage 4: Severe kidney damage GFR 15-29 Stage 5: Severe kidney damage GFR <15 ESRD - chronic treatment by dialysis or transplant Performed at [address] [place] [address] ([phone] 11/18/2013 8:11 AM EDT 11/18/2013 8:12 AM EDT us Bety Munoz MD CHEMISTRY ORDERABLES Final Res ult Performing Organization Address City/[facility]/ZIP Co de Phone Number [facility] [address] [place] [id number] [phone] [facility] * (ABNORMAL) BUN (11/18/2013 8:11 AM EDT) BUN 21(H) 6 - 20 mg/dL 11/18/2013 9:24 AM EDT [facility] Comment: Performed at [address] [place] [address] ([phone] 11/18/2013 8:11 AM EDT 11/18/2013 8:12 AM EDT us Bety Munoz MD CHEMISTRY ORDERABLES Final Res ult [facility] [address] [place], [place] [id number] [phone] [facility] documented in this encounter Visit Diagnoses Not on filedocumented in this encounter Additional Health Concerns Infection Onset Date Last Indicated Resolved Time ESBL (Extended Spectrum Beta Lactamase) Comment:03/22/13 - urine - e.coli 03/24/2013 03/24/2013 documented as of this encounter Care Teams Prepared Foods Team Leader Relationship Specialty Start Date End Date Noe De Leon DO [address] [place] [id number] PCP - General 08/01/13 04/11/14 documented as of this encounter
--- OUTSIDE RECORDS SUMMARY | 2014-04-16 03:20 | XMS_ITS | Encounter Summary ---
Author Organization [facility] Address [address] [facility], [address] [place] [address] Care Team Providers Care Roof Service Technician Name Role Phone Alisa Robertson MD Primary Care Provider [phone] Encounter Details Date Type Department Care Team (Latest Contact Info) Description 04/16/2014 2:20 AM EST Hospital Encounter [facility] [address] [place] [address] Alisa Robertson MD [address] [place] [id number] Overweight (BMI 25.0-29.9) Social History Tobacco Use Types Packs/Day Years [...] Description 04/19/2025 2:30 PM EST Office Visit [facility] [address] [facility] [address], [address] [place] [address] Paramjit Olvera MD [address] [facility] [place], [place] [phone] 3 month follow up documented as of this encounter Goals Goal Patient Goal Type Associated Problems Recent Progress Patient-Stated? Author Quit smoking. Lifestyle No Blanca Sheridan documented as of this encounter Procedures Procedure Name Priority Date/Time Associated Diagnosis Comments URINALYSIS Routine 04/16/2014 9:17 AM EST TSH Routine 04/16/2014 9:17 AM EST Overweight (BMI 25.0-29.9) T4, FREE Routine 04/16/2014 9:17 AM EST Overweight (BMI 25.0-29.9) documented in this encounter Results * (ABNORMAL) Urinalysis (04/16/2014 9:17 AM EST) Color, UA YELLOW YEL 04/16/2014 10:40 AM EST [facility] Turbidity UA CLEAR CLEAR 04/16/2014 10:40 AM EST [facility] Glucose, Ur NEGATIVE NEG 04/16/2014 10:40 AM EST [facility] Bilirubin Urine NEGATIVE NEG 04/16/2014 10:40 AM EST [facility] Ketones, Urine NEGATIVE NEG 04/16/2014 10:40 AM EST [facility] Specific [place], UA <1.005(L) 1.010 - 1.020 04/16/2014 10:40 AM EST [facility] Urine Hgb NEGATIVE NEG 04/16/2014 10:40 AM EST [facility] pH, UA 7.0 5.0 - 9.0 04/16/2014 10:40 AM EST [facility] Protein, UA NEGATIVE NEG 04/16/2014 10:40 AM EST [facility] Urobilinogen, Urine Normal NORM 04/16/2014 10:40 AM EST [facility] Nitrite, Urine NEGATIVE NEG 04/16/2014 10:40 AM EST [facility] Leukocyte Esterase, Urine NEGATIVE NEG 04/16/2014 10:40 AM EST [facility] Comment: Performed at [address] [place] [id number] ([phone] Urinalysis Comments NOT REPORTED [facility] 04/16/2014 9:1 7 AM EST 04/16/2014 9:18 AM EST Alisa Robertson MD URINE ORDERABLES Final Result Performing Organization Address [facility]/ZIP Co de Phone Number [facility] [address] [place] [address] [facility] * T4, free (04/16/2014 9:17 AM EST) Thyroxine, Free 1.13 0.93 - 1.70 ng/dL 04/16/2014 10:46 AM EST [facility] Comment: Performed at [address] [place] [id number] ([phone] BLOOD SPECIMEN / Unknown 04/16/2014 9:17 AM EST 04/16/2014 9:18 AM EST Alisa Robertson MD CHEMISTRY ORDERABLES Final Re sult Performing Organization Address [facility]/ZIP Co de Phone Number [facility] [address] [place] [address] [facility] * TSH without Reflex (04/16/2014 9:17 AM EST) TSH 1.63 0.30 - 5.00 mIU/L 04/16/2014 10:46 AM EST [facility] Comment: Performed at [address] [place] [address] ([phone] BLOOD SPECIMEN / Unknown 04/16/2014 9:17 AM EST 04/16/2014 9:18 AM EST us Alisa Robertson MD CHEMISTRY ORDERABLES Final Re sult [facility] [address] [place] [address], [facility] [phone] [facility] documented in this encounter Visit Diagnoses Diagnosis Overweight (BMI 25.0-29.9) Overweight documented in this encounter Additional Health Concerns Infection Onset Date Last Indicated Resolved Time ESBL (Extended Spectrum Beta Lactamase) Comment:03/22/13 - urine - e.coli 03/24/2013 03/24/2013 documented as of this encounter Care Teams Roof Service Technician Relationship Specialty Start Date End Date Alisa Robertson MD PCP - General 04/12/14 08/08/14 documented as of this encounter
--- OUTSIDE RECORDS SUMMARY | 2014-07-30 03:59 | XMS_ITS | Encounter Summary ---
Author Organization [facility] Address [address], [address] [place] [address] Care Team Providers Care Shift Nurse Manager Name Role Phone Alisa Robertson MD Primary Care Provider [phone] Encounter Details Date Type Department Care Team (Late st Contact Info) Description 07/30/2014 2:59 AM EST Hospital Encounter [facility] [address] [place] [phone] Sony Holman MD [address] [phone] Social History Tobacco Use Types Packs/Day Years Used Date Smoking Tobacco: Former Cigarettes 0.3 40 Smokeless Tobacco: Never Comments: I smoke about 3-6 cig/day - 16-20. Alcohol Use Standard Drinks/Week Comments No 0 [...] Description 04/19/2025 2:30 PM EST Office Visit [facility] [address] [facility] [address] - [address] Floor, [address] [place] [address] Paramjit Olvera MD [address] [facility] [place], [place] [phone] 3 month follow up documented as of this encounter Goals Goal Patient Goal Type Associated Problems Recent Progress Patient-Stated? Author Quit smoking. Lifestyle No Blanca Sheridan documented as of this encounter Procedures Procedure Name Priority Date/Time Associated Diagnosis Comments THYROID ANTIBODIES Routine 07/30/2014 8: 18 AM EST TSH Routine 07/30/2014 8:18 AM EST T4, FREE Routine 07/30/2014 8:18 AM EST documented in this encounter Results * TSH without Reflex (07/30/2014 8:18 AM EST) TSH 1.16 0.30 - 5.00 mIU/L 07/30/2014 9:47 AM EST [facility] Comment: Performed at [address] [place] [address] ([phone] 07/30/2014 8:18 AM EST 07/30/2014 8:19 AM EST us Sony Holman MD CHEMISTRY ORDERABLES Gaby l Result [address] [address] [phone] [facility] * Thyroid Antibodies (07/30/2014 8:18 AM EST) Thyroglobulin Ab <20.0 0.0 - 40.0 IU/mL 08/02/2014 1:58 PM EST [facility] Thyroid Peroxidase (Tpo) Ab 34.4 0.0 - 35.0 IU/mL 08/02/2014 1:58 PM EST [facility] Comment:Performed at [address] [id number] ([phone] 07/30/2014 8:18 AM EST 07/30/2014 8:19 AM EST Sony Holman MD IMMUNOLOGY ORDERABLES Fin al Result Performing Organization Address [facility]/ZIP Co de Phone Number [facility] [address] [place] [address] [facility] * T4, free (07/30/2014 8:18 AM EST) [facility] Thyroxine, Free 1.19 0.93 - 1.70 ng/dL 07/30/2014 9:47 AM EST [facility] Comment: Performed at [address] [place] [address] ([phone] 07/30/2014 8:18 AM EST 07/30/2014 8:19 AM EST Sony Holman MD CHEMISTRY ORDERABLES Gaby l Result Performing Organization Address [facility]/ZIP Co de Phone Number [facility] [address] [place] [address] [facility] documented in this encounter Visit Diagnoses Not on filedocumented in this encounter Additional Health Concerns Infection Onset Date Last Indicated Resolved Time ESBL (Extended Spectrum Beta Lactamase) Comment:03/22/13 - urine - e.coli 03/24/2013 03/24/2013 documented as of this encounter Care Teams Shift Nurse Manager Relationship Specialty Start Date End Date Alisa Robertson MD PCP - General 04/12/14 08/08/14 documented as of this encounter
--- OUTSIDE RECORDS SUMMARY | 2015-03-22 01:20 | XMS_ITS | Encounter Summary ---
Author Organization [facility] Address [address] [facility], [address] [place] [address] Care Team Providers Care Assembly Stock Supervisor Name Role Phone MoisesNoe arcos Primary Care Provider [phone] Encounter Details Date Type Department Care Team (Late st Contact Info) Description 03/22/2015 1:20 AM EDT Hospital Encounter [facility] [address] [place], [place] [id number] Bety Munoz MD [address] [place], [place] [id number] Social History Tobacco Use Types Packs/Day Years [...] Description 04/19/2025 2:30 PM EST Office Visit [facility] [address] [facility] [address], [address] [place] [address] Paramjit Olvera MD [address] [facility] [place], [place] [id number] 3 month follow up documented as of [...] - 5.00 mIU/L 03/22/2015 10:45 AM EDT [facility] Comment: Performed at [address] [place] [address] ([phone] 03/22/2015 8:51 AM EDT 03/22/2015 8:52 AM EDT us Bety Munoz MD CHEMISTRY ORDERABLES Final Res ult [facility] [address] [place] [address] [facility] * T4 (03/22/2015 8:51 AM EDT) T4, Total 7.7 4.5 - 12.0 ug/dL 03/22/2015 10:45 AM EDT [facility] Comment: Performed at [address] [place] [address] ([phone] 03/22/2015 8:51 AM EDT 03/22/2015 8:52 AM EDT us Bety Munoz MD CHEMISTRY ORDERABLES Final Res ult Performing Organization Address [facility]/ZIP Co de Phone Number [facility] [address] [place] [address] [facility] * Electrolyte Panel (03/22/2015 8:51 AM EDT) Sodium 144 135 - 144 mmol/L 03/22/2015 10:45 AM EDT [facility] Potassium 4.4 3.7 - 5.3 mmol/L 03/22/2015 10:45 AM EDT [facility] Chloride 106 98 - 107 mmol/L 03/22/2015 10:45 AM EDT [facility] CO2 26 20 - 31 mmol/L 03/22/2015 10:45 AM EDT [facility] Anion Gap 12 9 - 17 mmol/L 03/22/2015 10:45 AM EDT [facility] Comment: Performed at [address] [place] [address] ([phone] 03/22/2015 8:51 AM EDT 03/22/2015 8:52 AM EDT us Bety Munoz MD CHEMISTRY ORDERABLES Final Res ult Performing Organization Address City/[facility]/ZIP Co de Phone Number [facility] [address] [place] [address] [facility] * [place] level (03/22/2015 8:51 AM EDT) [place] Lvl 0.8 0.6 - 1.2 mmol/L 03/22/2015 10:36 AM EDT [facility] [place] Dose Amount HIDE 03/22/2015 8:54 AM EDT [facility] [place] Date Last Dose HIDE 03/22/2015 8:54 AM EDT [facility] [place] Dose Time HIDE 03/22/2015 8:54 AM EDT [facility] Comment: Performed at [address] [place] [address] ([phone] 03/22/2015 8:51 AM EDT 03/22/2015 8:52 AM EDT us Bety Munoz MD CHEMISTRY ORDERABLES Final Res ult Performing Organization Address City/State/[facility] Co de Phone Number [place] [phone] [phone] [facility] * Creatinine, serum (03/22/2015 8:51 AM EDT) Creatinine 0.90 0.50 - 0.90 mg/dL 03/22/2015 10:45 AM EDT [facility] GFR Non- >60 >60 mL/min 03/22/2015 10:45 AM EDT [facility] GFR >60 >60 mL/min 03/22/2015 10:45 AM EDT [facility] GFR Comment 03/22/2015 10:45 AM EDT [facility] Comment: Average GFR for 50-59 years old: 93 mL/min/1.73sq m Chronic Kidney Disease: <60 mL/min/1.73sq m Kidney failure: <15 mL/min/1.73sq m GFR Staging 03/22/2015 10:45 AM EDT [facility] Comment: Stage 1: Some kidney damage normal GFR Stage 2: Mild kidney damage GFR 60-89 Stage 3: Moderate kidney damage GFR 30-59 Stage 4: Severe kidney damage GFR 15-29 Stage 5: Severe kidney damage GFR <15 ESRD - chronic treatment by dialysis or transplant Performed at [address] [place] [id number] ([phone] 03/22/2015 8:51 AM EDT 03/22/2015 8:52 AM EDT us Bety Munoz MD CHEMISTRY ORDERABLES Final Res ult Performing Organization Address [facility]/ZIP Co de Phone Number [facility] [address] [place] [address] [facility] * Calcium (03/22/2015 8:51 AM EDT) Calcium 10.4 8.6 - 10.4 mg/dL 03/22/2015 10:45 AM EDT [facility] Comment: Performed at [address] [place] [id number] ([phone] 03/22/2015 8:51 AM EDT 03/22/2015 8:52 AM EDT us Bety Munoz MD CHEMISTRY ORDERABLES Final Res ult Performing Organization Address [facility]/ZIP Co de Phone Number [facility] [address] [place] [address] [facility] * BUN (03/22/2015 8:51 AM EDT) BUN 16 6 - 20 mg/dL 03/22/2015 10:45 AM EDT [facility] Comment: Performed at [address] [place] [id number] ([phone] 03/22/2015 8:51 AM EDT 03/22/2015 8:52 AM EDT us Bety Munoz MD CHEMISTRY ORDERABLES Final Res ult Performing Organization Address [facility]/ZIP Co de Phone Number [facility] [address] [place] [address] [facility] documented in this encounter Visit Diagnoses Not on filedocumented in this encounter Additional Health Concerns Infection Onset Date Last Indicated Resolved Time ESBL (Extended Spectrum Beta Lactamase) Comment:03/22/13 - urine - e.coli 03/24/2013 03/24/2013 documented as of this encounter Care Teams Assembly Stock Supervisor Relationship Specialty Start Date End Date Noe De Leon DO PCP - General 11/25/14 06/25/15 documented as of this encounter
--- OUTSIDE RECORDS SUMMARY | 2015-11-15 08:10 | XMS_ITS | Encounter Summary ---
Author Organization [facility] Address [address] [facility], [address] [place] [address] Care Team Providers Care Dog Day Care Attendant Name Role Phone HoughNoe arcos Primary Care Provider [phone] Encounter Details Date Type Department Care Team (Late st Contact Info) Description 11/15/2015 8:10 AM EDT Hospital Encounter [facility] [address] [place], [place] [phone] Bety Munoz MD [address] [place], [place] [phone] Social History Tobacco Use Types Packs/Day Years [...] Description 04/19/2025 2:30 PM EST Office Visit [facility] [place] [address] [facility] [address] - [address] Floor, [address] [place] [address] Paramjit Olvera MD [address] [facility] [place] [address] 3 month follow up documented as of [...] documented as of this encounter Care Teams Dog Day Care Attendant Relationship Specialty Start Date End Date Noe De Leon DO PCP - General 07/09/15 02/22/16 documented as of this encounter
--- OUTSIDE RECORDS SUMMARY | 2025-02-17 22:46 | XMS_ITS | Encounter Summary ---
Author Organization [facility] Address [address] [facility], [address] [place] [address] Care Team Providers Care Content Engineer Name Role Phone RumaMoe Shakir DUMONT Primary Care Provider + [phone] Reason for Visit * Reason Comments Medication Refill Encounter Details Date Type Department Care Team (Late st Contact Info) Description 02/16/2015 Refill [facility] ([place]) [address] [place] [phone] Misha Seals W, DIRECTOR OF ROOMS - DIRECTOR TRANSLATION [address] [place] [address] Medication Refill Social History Tobacco [...] Description 04/19/2025 2:30 PM EST Office Visit [facility] [address] [facility] [address] Floor, [address] [place] [address] Paramjit Olvera MD [address] [facility] [place] [address] 3 month follow up documented [...] documented as of this encounter Care Teams Content Engineer Relationship Specialty Start Date End Date Moe Hendrix DO [address] [place] [address] PCP - General Family Medicine 12/17/24 documented as of this encounter
--- OUTSIDE RECORDS SUMMARY | 2025-02-17 22:46 | XMS_ITS | Encounter Summary ---
Author Organization [facility] Address [address] [facility], [address] [place] [address] Care Team Providers Care Chain Maker Name Role Phone RumaMoe Shakir DUMONT Primary Care Provider + [phone] Reason for Visit * Reason Comments Medication Refill Encounter Details Date Type Department Care Team (Late st Contact Info) Description 01/11/2015 Refill [facility] ([place]) [address] [place] [phone] Misha Seals W, AIRPLANE PILOT CHIEF - PHYSICAL AERODYNAMICIST [address] [place] [address] Medication Refill Social History Tobacco [...] Description 04/19/2025 2:30 PM EST Office Visit [facility] [address] [facility] [address] - Ground Floor, [address] [place] [address] Paramjit Olvera MD [address] [facility] [address] [place] [address] 3 month follow up documented [...] documented as of this encounter Care Teams Chain Maker Relationship Specialty Start Date End Date Moe Hendrix DO [address] [place] [address] PCP - General Family Medicine 12/17/24 documented as of this encounter
--- OUTSIDE RECORDS SUMMARY | 2025-02-17 22:46 | XMS_ITS | Encounter Summary ---
Author Organization [facility] Address [address] [facility], [address] [place] [address] Care Team Providers Care Mothers Helper Name Role Phone RumaHowieMoeshankar Schilling DO Primary Care Provider + [phone] Reason for Visit * Reason Comments Other Encounter Details Date Type Department Care Team (Late Contact Info) Description 08/11/2014 Refill [facility] ([place]) [address] [place] [phone] Misha Seals W, HEAT TREAT SUPERVISOR - PARIMUTUEL CASHIER [address] [place] [address] Other Social History Tobacco Use [...] Description 04/19/2025 2:30 PM EST Office Visit [facility] [address] [facility] [address] - Ground Floor, [address] [place] [address] Paramjit Olvera MD [address] [facility] [address] [place] [address] 3 month follow up documented [...] documented as of this encounter Care Teams Mothers Helper Relationship Specialty Start Date End Date Moe Hendrix DO [address] [place] [address] PCP - General Family Medicine 12/17/24 documented as of this encounter
--- OUTSIDE RECORDS SUMMARY | 2025-02-17 22:46 | XMS_ITS | Encounter Summary ---
Author Organization [facility] Address [address] [facility], [address] [place] [address] Care Team Providers Care Dry Cure Worker Name Role Phone Ruma Moe Schilling DO Primary Care Provider + [phone] Reason for Visit * Reason Comments Other Encounter Details Date Type Department Care Team (Late Contact Info) Description 12/13/2014 Refill [facility] ([place]) [address] [place] [phone] Misha Seals W, SIGN PAINTER - CLIENT SUCCESS MANAGER [address] [place] [address] Other Social History Tobacco Use [...] 2:30 PM EST Office Visit [facility] [address] [facility] [address] - Ground Floor, [address] [place] [address] Paramjit Olvera MD [address] [facility] [address] [place] [address] 3 month follow up documented [...] documented as of this encounter Care Teams Dry Cure Worker Relationship Specialty Start Date End Date Moe Hendrix DO [address] [place] [address] PCP - General Family Medicine 12/17/24 documented as of this encounter
--- OUTSIDE RECORDS SUMMARY | 2025-02-17 22:46 | XMS_ITS | Encounter Summary ---
Author Organization [facility] Address [address] [facility] [address] [facility], [address] [place] [address] Care Team Providers Care Wire Stitcher Operator Name Role Phone Moe Hendrix Primary Care Provider + [phone] Reason for Visit * Reason Comments Other Encounter Details Date Type Department Care Team (Late Contact Info) Description 07/23/2014 Refill [facility] ([address] [phone] Alisa Robertson MD [address] [place] [address] Other Social History Tobacco Use [...] Department Care Team (Late Contact Info) Description 04/19/2025 2:30 PM EST [facility] [address] [facility] [address] - [address] Floor, [address] [place] [address] Paramjit Olvera MD [address] [facility] [place] [address] 3 month follow up documented as of this encounter Visit Diagnoses Not on filedocumented in this encounter Additional Health Concerns Infection Onset Date Last Indicated Resolved Time ESBL (Extended Spectrum Beta Lactamase) Comment:03/22/13 - urine - e.coli 03/24/2013 03/24/2013 documented as of this encounter Care Teams Wire Stitcher Operator Relationship Specialty Start Date End Date Moe Hendrix DO [address] [place] [address] PCP - General Family Medicine 12/17/24 documented as of this encounter
--- OUTSIDE RECORDS SUMMARY | 2025-02-17 22:46 | XMS_ITS | Encounter Summary ---
Author Organization [facility] Address [address] [facility], [address] [place] [address] Care Team Providers Care System Trainer Name Role Phone RumaMoe Shakir DUMONT Primary Care Provider + [phone] Reason for Visit * Reason Comments Medication Refill Encounter Details Date Type Department Care Team (Late st Contact Info) Description 02/24/2015 Refill [facility] ([place]) [address] [place] [phone] Misha Seals W, SOCIAL SECRETARY - METEOROLOGICAL ENGINEER [address] [place] [address] Medication Refill Social History Tobacco [...] Description 04/19/2025 2:30 PM EST Office Visit [facility] [address] [facility] [address] - [address] Floor, [address] [place] [address] Paramjit Olvera MD [address] [facility] [address] [place] [address] 3 month follow up documented [...] documented as of this encounter Care Teams System Trainer Relationship Specialty Start Date End Date Moe Hendrix DO [address] [place] [address] PCP - General Family Medicine 12/17/24 documented as of this encounter
--- OUTSIDE RECORDS SUMMARY | 2025-02-17 22:46 | XMS_ITS | Encounter Summary ---
Author Organization [facility] Address [address] [facility], [address] [place] [address] Care Team Providers Care Special Agent In Charge Name Role Phone Ruma Moe Schilling DO Primary Care Provider + [phone] Reason for Visit * Reason Comments Other Encounter Details Date Type Department Care Team (Late Contact Info) Description 12/29/2014 Refill [facility] ([place]) [address] [place] [phone] Misha Seals W, HEARING AID FITTER - FUEL SYSTEM MAINTENANCE WORKER [address] [place] [address] Other Social History Tobacco Use [...] Description 04/19/2025 2:30 PM EST Office Visit [facility] [address] [facility] [address] [facility] [address] - [address] Floor, [address] [place] [address] Paramjit Olvera MD [address] [facility] [address] [place] [address] 3 month follow up documented [...] documented as of this encounter Care Teams Special Agent In Charge Relationship Specialty Start Date End Date Moe Hendrix DO [address] [place] [address] PCP - General Family Medicine 12/17/24 documented as of this encounter
--- OUTSIDE RECORDS SUMMARY | 2025-02-17 22:47 | XMS_ITS | Encounter Summary ---
Author Organization [facility] Address [address] [facility] [address] [facility], [address] [place] [address] Care Team Providers Care Cooling Pan Tender Name Role Phone LilianMoe mullen Shakir DUMONT Primary Care Provider + [phone] Reason for Visit * Reason Comments Medication Refill Encounter Details Date Type Department Care Team (Late Contact Info) Description 09/09/2019 Refill [facility] NEUROLOGY Part of [address] [place] [phone] Bhupinder Iniguez MD [address] [place] [address] [address] [place] [address] Medication Refill Social History Tobacco [...] EST Office Visit [facility] Neuro [facility] [address] [facility] [address] - Ground Floor, [address] [place] [address] [place] [address] [place], [place] [address] [address] [place] [address] 3 month follow up documented as of [...] documented as of this encounter Care Teams Cooling Pan Tender Relationship Specialty Start Date End Date Moe Hendrix DO [address] [place] [address] PCP - General Family Medicine 12/17/24 documented as of this encounter
--- OUTSIDE RECORDS SUMMARY | 2025-02-17 22:47 | XMS_ITS | Encounter Summary ---
Author Organization [facility] Address [address] [facility], [address] [place] [address] Care Team Providers Care Cement Crusher Operator Name Role Phone Moe Hendrix Primary Care Provider [phone] Encounter Details Date Type Department Care Team (Late st Contact Info) Description 06/11/2014 Telephone [facility] ([place]) [address] [place] [phone] Alisa Robertson MD [address] [place] [address] Social History Tobacco Use Types Packs/Day [...] Description 04/19/2025 2:30 PM EST Office Visit [facility] [address] [facility] [address] - Ground Floor, [address] [place] [address] Paramjit Olvera MD [address] [facility] [place] [address] 3 month follow up documented as of this encounter Visit Diagnoses Not on filedocumented in this encounter Additional Health Concerns Infection Onset Date Last Indicated Resolved Time ESBL (Extended Spectrum Beta Lactamase) Comment:03/22/13 - urine - e.coli 03/24/2013 03/24/2013 documented as of this encounter Care Teams Cement Crusher Operator Relationship Specialty Start Date End Date Moe Hendrix DO [address] [place] [address] PCP - General Family Medicine 12/17/24 documented as of this encounter
--- OUTSIDE RECORDS SUMMARY | 2025-02-17 22:47 | XMS_ITS | Encounter Summary ---
Author Organization [facility] Address [address] [facility] [address] [facility], [address] [place] [address] Care Team Providers Care Oceanographer Geological Name Role Phone Moe Hendrix DO Primary Care Provider + [phone] Reason for Visit * Reason Comments Medication Refill Encounter Details Date Type Department Care Team (Late st Contact Info) Description 01/11/2017 Refill [facility] Neurology specialist [address] [place] [phone] Toby Vasquez DO [address] [facility] [address] [place], [place] [phone] Medication Refill Social History Tobacco Use Types [...] Description 04/19/2025 2:30 PM EST Office Visit [facility] [address] [facility] [address] - [address] Floor, [address] [place] [address] Paramjit Olvera MD [address] [facility] [address] [place] [address] 3 month follow up documented [...] documented as of this encounter Care Teams Oceanographer Geological Relationship Specialty Start Date End Date Moe Hendrix DO [address] [place] [address] PCP - General Family Medicine 12/17/24 documented as of this encounter
--- OUTSIDE RECORDS SUMMARY | 2025-02-17 22:47 | XMS_ITS | Encounter Summary ---
Author Organization [facility] Address [address] [facility], [address] [place] [address] Care Team Providers Care Reconditioning Associate Name Role Phone RumaHowieMoeshankar Schilling DO Primary Care Provider + [phone] Reason for Visit * Reason Comments Other Encounter Details Date Type Department Care Team (Late Contact Info) Description 03/16/2014 Refill [facility] ([place]) [address] [place] [phone] Misha Seals W, CALENDER MACHINE OPERATOR HELPER - CEO AND FOUNDER [address] [place] [address] Other Social History Tobacco Use [...] Description 04/19/2025 2:30 PM EST Office Visit [facility] [address] [facility] [facility] [address] - [address] Floor, [address] [place] [address] Paramjit Olvera MD [address] [facility] [address] [place] [address] 3 month follow up documented as of this encounter Visit Diagnoses Not on filedocumented in this encounter Additional Health Concerns Infection Onset Date Last Indicated Resolved Time ESBL (Extended Spectrum Beta Lactamase) Comment:03/22/13 - urine - e.coli 03/24/2013 03/24/2013 documented as of this encounter Care Teams Reconditioning Associate Relationship Specialty Start Date End Date Moe Hendrix DO [address] [place] [address] PCP - General Family Medicine 12/17/24 documented as of this encounter
--- OUTSIDE RECORDS SUMMARY | 2025-02-17 22:47 | XMS_ITS | Encounter Summary ---
Author Organization [facility] Address [address] [facility], [address] [place] [address] Care Team Providers Care District Director Name Role Phone RumaHowieMoesahnkar Schilling DO Primary Care Provider + [phone] Reason for Visit * Reason Comments Other Encounter Details Date Type Department Care Team (Late Contact Info) Description 03/11/2014 Refill [facility] ([place]) [address] [place] [phone] Misha Seals W, RAILROADER - BIZTALK SOFTWARE DEVELOPER [address] [place] [address] Other Social History Tobacco Use [...] Description 04/19/2025 2:30 PM EST Office Visit [facility] [address] [facility] [address] - Ground Floor, [address] [place] [address] Paramjit Olvera MD [address] [facility] [address] [place] [address] 3 month follow up documented as of this encounter Visit Diagnoses Not on filedocumented in this encounter Additional Health Concerns Infection Onset Date Last Indicated Resolved Time ESBL (Extended Spectrum Beta Lactamase) Comment:03/22/13 - urine - e.coli 03/24/2013 03/24/2013 documented as of this encounter Care Teams District Director Relationship Specialty Start Date End Date Moe Hendrix DO [address] [facility] [place] [address] PCP - General Family Medicine 12/17/24 documented as of this encounter
--- OUTSIDE RECORDS SUMMARY | 2025-02-17 22:47 | XMS_ITS | Clinical Summary ---
Author Organization [facility] Address [address], [address] [place] [address] Care Team Providers Care Software Engineering Specialist Name Role Phone LilianchayoMoe chaidez Shakir DUMONT [...] neuro 2016. for reported migraines. 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 Chest pain 05/04/2014 Abnormal ECG 05/04/2014 Tobacco abuse 05/04/2014 Depression 05/04/2014 COPD (chronic obstructive pulmonary disease) 07/2013 Bipolar disorder 05/04/2014 Atypical chest pain Resolved Problems Problem Noted Date Diagnosed Date Resolved Date Colon cancer screening 11/30/201303/31 Encounters Date Type Department Care Team Description 12/17/2024 8:30 AM EDT - 12/19/2024 11:59 PM EDT Hospital Encounter [facility] Non-Invasive Cardiology [address] [place] [id number] Wood Turner MD Abnormal EKG; RBBB; History of [place] (myocardial infarction); Tobacco abuse counseling Discharge Disposition: Home or Self Care 12/17/2024 Results Follow-Up [facility] Cardiology [address] [place] [address] [place], [place] [id number] Wood Turner MD 12/07/2024 1:40 PM EDT Office Visit [facility] CARDIOLOGY Part of [address] [address] Wood Turner MD Abnormal EKG (Primary Dx); RBBB; History of [place] (myocardial infarction); Tobacco abuse counseling from Last 3 Months Immunizations Immunization Administration [...] Comments: I smoke about 3-6 cig/day - 04-18-. Alcohol Use Standard Drinks/Week Comments No 0 [...] Description 04/19/2025 2:30 PM EST Office Visit [facility] [address], [address] [place] [address] Paramjit Olvera MD [address] [place] [address] 3 month follow up Health Maintenance Due [...] 02/06/2019 Annual Wellness Visit (Medicare Advantage) 06/03/2024 Flu vaccine (#1) 01/01/2025 03/14/2020, , 03/20/2018, Additional history exists COVID-19 Vaccine ( season) 2025 02/26/2024, 03/22/2022, 06/12/2021, Additional history exists GFR test (Diabetes, CKD [...] AM EDT Abnormal EKG RBBB History of [place] (myocardial infarction) Tobacco abuse counseling COMPREHENSIVE METABOLIC PANEL Stat [employer] Label print 04/23/2024 1:30 PM EST HEMATOLOGY NURSE CYTOLOGY Routine 08/16/2022 7:57 AM EDT LINDA [...] CPACS LVIDd 3.2(A) 3.9 - 5.3 cm BS CV CPACS LVIDs 2.7 cm BS CV CPACS LVOT Mean Gradient 1 mmHg BS CV CPACS LVOT VTI 16.1 cm [facility] CV CPACS LVOT Peak Velocity 0.9 m/s BS CV CPACS LVOT Peak Gradient 3 mmHg BS CV CPACS LVPWd 1.3(A) 0.6 - 0.9 cm BS CV CPACS LV E' Lateral Velocity 6.20 cm/s BS CV CPACS LV Ejection Fraction A2C 58 % [facility] CV CPACS LV Ejection Fraction A4C 69 % BS CV CPACS EF BP 64 55 - 100 % BS CV CPACS LA Minor [place] 4.6 cm [facility] CV CPACS LA Major [place] 4.5 cm [facility] CV CPACS LA Area 2C 11.2 cm2 [facility] CV CPACS LA Area 4C 13.0 cm2 BS CV CPACS LA Volume MOD A2C 22 22 - 52 mL BS CV CPACS LA Volume MOD A4C 31 22 - 52 mL [facility] CV CPACS LA Volume BP 26 22 - 52 mL BS CV CPACS AV Cusp Mmode 1.4 cm BS CV CPACS AV Mean Gradient 2 mmHg BS CV CPACS AV VTI 19.1 cm BS CV CPACS AV Mean Velocity 0.6 m/s BS CV CPACS AV Peak Velocity 0.9 m/s BS CV CPACS AV Peak Gradient 3 mmHg BS CV CPACS Ascending Aorta 2.7 cm [facility] CV CPACS Sinotubular Junction 2.5 cm BS CV CPACS Aortic Sinus Valsalva 2.9 cm [facility] CV CPACS MV E Wave Deceleration Time 250.0 ms [facility] CV CPACS MV A Velocity 0.78 m/s BS CV CPACS MV E Velocity 0.30 m/s BS CV CPACS PV Max Velocity 0.7 m/s BS CV CPACS PV Peak Gradient 2 mmHg BS CV CPACS TAPSE 2.2 >=1.7 cm [facility] CV CPACS TR Max Velocity 1.67 m/s BS CV CPACS TR Peak Gradient 11 mmHg BS CV CPACS Body Surface Area 1.72 m2 BS CV CPACS Fractional Shortening 2D 16 28 - 44 % [facility] CV CPACS LV ESV Index A4C 9 mL/m2 BS CV CPACS LV EDV Index A4C 29 mL/m2 BS CV CPACS LV ESV Index A2C 11 mL/m2 BS CV CPACS LV EDV Index A2C 25 mL/m2 BS CV CPACS LVIDd Index 1.89 cm/m2 BS CV CPACS LVIDs Index 1.60 cm/m2 BS CV CPACS LV RWT Ratio 0.81 [facility] CV CPACS LV Mass 2D 171.6(A) 67 - 162 g BS CV CPACS LV Mass 2D Index 101.6(A) 43 - 95 g/m2 BS CV CPACS MV E/A 0.38 BS CV CPACS E/E' Lateral 4.84 BS CV CPACS LA Volume Index BP 15(A) 16 - 34 ml/m2 BS CV CPACS LA Volume Index MOD A2C 13(A) 16 - 34 ml/m2 [facility] CV CPACS LA Volume Index MOD A4C 18 16 - 34 ml/m2 [facility] CV CPACS Aortic Sinus Valsalva Index 1.72 cm/m2 [facility] CV CPACS Ascending Aorta Index 1.60 cm/m2 [facility] CV CPACS AV Velocity Ratio 1.00 [facility] CV CPACS LVOT:AV VTI Index 0.84 [facility] CV CPACS Est. RA Pressure 3 mmHg BS CV CPACS RVSP 14 mmHg [facility] CV CPACS EF Physician 65 % [facility] CV CPACS Anatomical Region Laterality Modality Echocardiography [...] contrast was given. us Wood Turner MD CV ECHO ORDERABLES Final Result * (ABNORMAL) Comprehensive Metabolic Panel (04/23/2024 1:30 PM EST) Sodium 140 136 - 145 mmol/L 04/23/2024 1:30 PM EST [facility] Potassium 4.6 3.7 - 5.3 mmol/L 04/23/2024 [...] - 0.9 mg/dL 04/23/2024 1:30 PM EST [facility] Est, Glom Filt Rate 38(L) >60 mL/min/1. 73m2 04/23/2024 1:30 PM EST [facility] Comment: These results are not intended for [...] - 10.4 mg/dL 04/23/2024 1:30 PM EST [facility] Total Protein 6.4(L) 6.6 - 8.7 g/dL 04/23/2024 1:30 PM EST [facility] Albumin 4.2 3.5 - 5.2 g/dL 04/23/2024 1:30 PM EST [facility] Albumin/Globulin Ratio 1.9 1.0 - 2.5 04/23/2024 1:30 PM EST [facility] Total Bilirubin <0.2 0.0 - 1.2 mg/dL 04/23/2024 1:30 PM EST [facility] Alkaline Phosphatase 116(H) 35 - 104 U/L 04/23/2024 1:30 PM EST [facility] ALT 19 10 - 35 U/L 04/23/2024 1:30 PM EST [facility] AST 17 10 - 35 U/L 04/23/2024 1:30 PM EST [facility] Blood BLOOD SPECIMEN / Unknown 04/23/2024 1:30 PM EST 04/23/2024 1:35 PM EST us Jesus Mims MD CHEMISTRY ORDERABLES Final Resul t [facility] [address] [place] [address] * HEMATOLOGY NURSE Cytology (08/16/2022 7:57 AM EDT) Cytology Report INTERPRETATION Cervical material, (ThinPrep vial, Imaging-assisted review): Specimen Adequacy: Satisfactory for evaluation. Descriptive Diagnosis: Negative for intraepithelial lesion or malignancy. Chucking Machine Operator: ROSY ARCHIBALD(ASCP) Electronically Signed Out /08/24/2022 Source: A: Cervical material, (ThinPrep vial, Imaging-assisted review) Clinical History Hysterectomy Z12.4 Encounter for screening for malignant neoplasm of cervix GYNECOLOGIC CYTOLOGY REPORT Patient Name: MARTÍNEZ ALMEIDA [facility] Rec: [id number] Path Number: [id number] [facility] ANATOMIC PATHOLOG[facility] [address] [place], [place] [phone] [facility] CERVICAL MATERIAL 08/16/2022 7:57 AM EDT 08/17/2022 7:57 AM EDT She Spencer [employer] - CNM PATHOLOGY/CYTOLO GY ORDERABLES Final Result [facility] [address] [place] [address], [facility] [phone] [facility] [address] [place], [place] [address] [phone] * LINDA ERYN DIGITAL DIAGNOSTIC BILATERAL (11/11/2020 [...] to the patient regarding the results. The [employer] recommends annual mammograms for [...] 08, 2020 is not visible. She Spencer [employer] - CN IM MAMMOGRAPHY ORDERABLES Final Result * (ABNORMAL) Lipid Panel (07/14/2020 7:00 AM EST) Cholesterol 151 <200 mg/dL 07/14/2020 7:00 AM EST [facility] Comment: Cholesterol Guidelines: <200 Desirable 200-240 Borderline >240 Undesirable HDL 42 >40 mg/dL 07/14/2020 7:00 AM EST [facility] Comment: HDL Guidelines: <40 Undesirable 40-59 Borderline >59 Desirable LDL Cholesterol 79 0 - 130 mg/dL 07/14/2020 7:00 AM EST [facility] Comment: LDL Guidelines: <100 Desirable 100-129 Near to/above Desirable 130-159 Borderline >159 Undesirable Direct (measured) LDL and calculated LDL are not interchangeable tests. Chol/HDL Ratio 3.6 <5 07/14/2020 7:00 AM EST [facility] Comment: Triglycerides 151(H) <150 mg/dL 07/14/2020 7:00 AM EST [facility] Comment: Triglyceride Guidelines: <150 Desirable 150-199 Borderline 200-499 High >499 Very high Based on AHA Guidelines for fasting triglyceride, March 2012. VLDL NOT REPORTED 1 - 30 mg/dL 07/14/2020 7:00 AM EST [facility] 07/14/2020 7:00 AM EST 07/18/2020 10:38 AM EST Lolis Mccormick MD CHEMISTRY ORDERABLES Final Resul t [facility] [address] [place] [address], [facility] [phone] [facility] [address] [place] [address], [facility] [phone] * DEXA BONE DENSITY AXIAL SKELETON (02/25/2019 [...] lumbar spine and left hip on a [employer] system. COMPARISON: None. HISTORY: ORDERING SYSTEM PROVIDED [...] lumbar spine and left hip on a [employer] system. COMPARISON: None. HISTORY: ORDERING SYSTEM PROVIDED [...] 1.0% IMPRESSION: Osteopenia by WHO criteria. She Diaz CNM IMG DEXA ORDERAB LES Final Result * Blood Occult Stool #1 (02/06/2019 10:00 AM EDT) Occult Blood, Stool #1 NEGATIVE NEGATIVE 02/06/2019 10:00 AM EDT [facility] Date, Stool #1 [phone] 02/06/2019 10:00 AM EDT [facility] Time, Stool #1 1,000 02/06/2019 10:00 AM EDT [facility] Occult Blood, Stool #2 NOT REPORTED NEGATIVE 02/06/2019 10:00 AM EDT [facility] Date, Stool #2 NOT REPORTED 02/06/2019 10:00 AM EDT [facility] Time, Stool #2 NOT REPORTED 02/06/2019 10:00 AM EDT [facility] Occult Blood, Stool #3 NOT REPORTED NEGATIVE 02/06/2019 10:00 AM T [facility] Date, Stool #3 NOT REPORTED 02/06/2019 10:00 AM T [facility] Time, Stool #3 NOT REPORTED 02/06/2019 10:00 AM T [facility] STOOL SPECIMEN / Unknown 02/06/2019 10:00 AM EDT 02/06/2019 1:32 PM EDT She Diaz CNM BODY FLUIDS AND STOOLS ORDERABLES Final Result [facility] [address] [place] [address], [facility] [phone] * Hemoglobin A1C (08/10/2016 12:53 PM EST) Hemoglobin A1C 5.8 4.8 - 5.9 % 08/10/2016 2:34 PM EST [facility] Estimated Avg Glucose 120 mg/dL 08/10/2016 2:34 PM EST [facility] Comment: The ADA and AACC recommend providing the estimated average glucose result to permit better patient understanding of their HBA1c result. Performed at [address] [place] [address] ([phone] 08/10/2016 12:5 3 PM EST 08/10/2016 12:54 PM EST us Yen Crocker [employer] - MAINTENANCE MECHANIC 2ND SHIFT CHEMISTRY ORDERABLES F inal Result [facility] [address] [place] [address] [phone] [facility] from Last 3 Months or Most Recently Relevant to Health Maintenance Additional Health Concerns Infection Onset Date Last Indicated ESBL (Extended Spectrum Beta Lactamase) Comment:03/22/13 - urine - e.coli 03/24/2013 03/24/2013 Insurance [facility] DUAL COMPLETE Advance Directives Documents on File Type Date Recorded Patient Tar Distillation Supervisor Expl anation ACP-Power of Upholstered Goods Crafter 08/01/2021 10:21 AM * Full Code (Latest Code Status on File) Date Activated Date Inactivated Comments 03/23/2013 12:03 AM 03/23/2013 7:42 PM Care Teams Software Engineering Specialist Relationship Specialty Start Date End Date Moe Hendrix DO [address] [facility] [place] [address] PCP - General Family Medicine 12/17/24
--- OUTSIDE RECORDS SUMMARY | 2025-02-17 22:47 | XMS_ITS | Encounter Summary ---
Author Organization [facility] Address [address], [address] [place] [address] Care Team Providers Care Mold Construction Supervisor Name Role Phone LilianMoe mullen Shakir DUMONT Primary Care Provider + [phone] Reason for Visit * Reason Comments Medication Refill Encounter Details Date Type Department Care Team (Late Contact Info) Description 02/15/2020 Refill [facility] NEUROLOGY Part of [address] [place] [address] Bhupinder Iniguez MD [address] [place] [address] [address] [place] [address] Medication Refill Social History Tobacco [...] 2:30 PM EST Office Visit [facility] Neuro [facility] [address], [address] [place] [address] [place] [address] [place], [place] [address] [address] [place] [address] 3 month follow up documented as of [...] documented as of this encounter Care Teams Mold Construction Supervisor Relationship Specialty Start Date End Date Moe Hendrix DO [address] [place] [address] PCP - General Family Medicine 12/17/24 documented as of this encounter
--- OUTSIDE RECORDS SUMMARY | 2025-02-17 22:50 | XMS_ITS | CCD ---
Author Organization [facility] Providers Care Screener And Blender Name Role Phone Karla Clark Unavailable Unavailable Sprout Unavailable Unavailable Kristine Beavers Unavailable Unavailable Amber, Karla Unavailable Unavailable Amber, Karla Unavailable Unavailable JORGE Unavailable Unavailable Karla Clark Primary Care Physician Unavailab le Sprout Unavailable Unavailable Beavers Kristine Unavailable Unavailable Amber Karla Unavailable Unavailable Karla Clark Primary Care Provider [phone] Karla Clark Primary Care Provider Karla Clark Primary Care Provider Karla Clark Primary Care Provider [phone] Amber SCRAP SEPARATOR - MINUTE CLERK FOR BASIC TRAFFIC, Karla M Primary Care Provider Karla Clark CNP Primary Care Provider Karla Clark CNP Unavailable Roseline Meraz Primary Care Physician Amber STEVENS - DAKSHA, Karla M Primary Care Provider Amber SCRAP SEPARATOR - DAKSHA, Karla M Primary Care Provider Amber CROOKS Karla Primary Care Provider [phone] Emory Adame Unavailable DO Emory Adame Attending Provider [phone] RODNEY Clark Primary Care Provider NO FAMILY, PHYSICIAN Primary Care Provider Unava ilable MISC, DR LINDQUIST Admitting Unavailable MISC, DR LINDQUIST Consulting Unavailable MISC, DR LINDQUIST Attending Unavailable AMBER, MS ACOSTA Primary Care Unavailable REKHA GALICIA Admitting Unavailable REKHA GALICIA Consulting Unavailable REKHA GALICIA Attending Unavailable AMBER, MS ACOSTA Primary Care Unavailable ERKHA GALICIA Admitting Unavailable REKHA GALICIA Consulting Unavailable REHKA GALICIA Attending Unavailable AMBER, MS KARLA Primary Care Unavailable AMBER, MS KARLA Primary Care Unavailable BRADY MENJIVAR Admitting Unavailable BRADY MENJIVAR Attending Unavailable DR HÉCTOR HO Consulting Unavailable BRADY MENJIVAR Consulting Unavailable RODNEY Clark Primary Care Provider DO Emory Adame Attending Provider MD Monster Davis Attending Provider RODNEY Clark Primary Care Provider Pay, DO Crespo Attending Provider [phone] MD Joe Davis Admit Provider MD Joe Davis Attending Provider NON STAFF Primary Care Provider UnavailTAWANNA Baker Other Provider Unavailable TAWANNA Pizarro Other Provider Unavailable TAWANNA Hudson Other Provider Unavailable TAWANNA Sams Other Provider Unavailable TAWANNA Galvan Other Provider Unavailable TAWANNA Quiñonez Other Provider Unavailable RODNEY Milan Ana M Other Provider DO Barbie Choi Other Provider [phone] MD Braden Dill Other Provider DO Chandu Villafana Other Provider MD Thomas Mendez Other Provider MD Kathrine Naik Other Provider Chilango, ANP-BC Mariana Other Provider MD Angel Haley Other Provider MD Link Salazar Other Provider MD Rosa Lowe Other Provider MD Brad Peng Other Provider DO Khalif Pettit Other Provider Seffo, MD Firas Other Provider MD Francisco Keene Other Provider STEVEN AguilarC Roseline Ponce Other Provider MD Jaswinder Robert Other Provider MD Titus Christianson Other Provider MD Kody Leon Other Provider MD Gibson Cid Other Provider DO Yolanda Davila Other Provider DO Jeancarlos Bonilla Other Provider DO Scottie Quinn Other Provider RODNEY Hallman Other Provider DO Jose Huang Other Provider MD Naga Lundberg Other Provider [phone] RODNEY Spencer Other Provider RODNEY Jenkins Other [...] Unavaillizzette e DO Nimesh Westfall Emergency Provider MD Joe Davis Admit Provider MD Joe Davis Attending Provider DO Alannah James Attending Provider Lorenza HUNG, Deepti Hendricks Unavailable MARÍA, YANDEL Attending Unavailable SCHARPF, YANDEL Referring Unavailable SCHARPF, YANDEL Attending Unavailable SCHARPF, YANDEL Admitting Unavailable SCHARPF, YANDEL Attending Unavailable SCHARPF, YANDEL Attending Unavailable SCHARPF, YANDEL Attending Unavailable RODNEY Clark Karla M Primary Care Provider [phone] MD Joe Davis Attending Provider [phone] NON STAFF Primary Care Provider UnavailHANDY Garcia Emergency Provider [phone] MD Joe Davis Admit Provider Amber CROOKS, Karla Unavailable DAKOTA MACK Attending Unavailable AMBER, KARLA Referring Unavailable JOHAN HOWELL Attending Unavailable MURKATELYN, ALANNAH Torres Attending Unavailable JOHAN HOWELL Referring Unavailable MURCEK, ALANNAH Torres Attending Unavailable MURCEK, ALANNAH W Referring Unavailable MURCEK, ALANNAH Torres Attending Unavailable MURCEK, ALANNAH Torres Attending Unavailable LUCY GILBERT Attending Unavailable VIDA CULP Referring Unavailable LUCY GILBERT Attending Unavailable Amber HUNG, Karla Unavailable Kentrell Hurley DO Primary Care Provider Amber SCRAP SEPARATOR - MINUTE CLERK FOR BASIC TRAFFIC, Karla M Primary Care Provider NON STAFF Primary Care Unavailable Susan, Joe Admitting Unavailab le Swapnil, Reynaldo Attending Unavailable NON STAFF Primary Care Unavailable MurAlannah mcgee Admitting Unavailable Murcek, Alannah Attending Unavailable Amber, Karla M Primary Care Unavailable Joe Davis Attending Unavailab le Susan, Joe Admitting Unavailab le Swapnil, Reynaldo Attending Unavailable NON STAFF Primary Care Unavailable Susan, Joe Admitting Unavailab le AMBER, KARLA M Referring Unavailable AMBER, KARLA M Primary Care Unavailable YANELY MONDRAGON Attending Unavailable AMBER, KARLA M Primary Care Unavailable SAMI JASSO Attending Unavailable KARLA CLARK Primary Care Unavailable Moe Avila DO Primary Care Provider HÉCTOR TURNER Attending Unavailable HÉCTOR TURNER Referring Unavailable MOE AVILA Primary Care Unavailable NON STAFF Primary Care Provider UnavailEmory Akbar DO Attending Provider Allergies Allergy Classification Reported Allergen(s) Allergy Type Date of Onset Reaction(s) Facility Aluminum aspirin (1 source) Aluminum aspirin Drug Allergy [facility] Aspirin (1 source) Aspirin Drug Allergy [facility] Barbiturates (1 source) Barbiturates Drug Allergy 014 Other (See Comments) [facility] Corticosteroids (1 source) predniSONE Drug Allergy 015 [facility] NSAIDs (1 source) Ibuprofen Drug Allergy 018 [facility] Opioid Agonists (3 sources) Codeine Drug Allergy unknown [facility] Penicillins (antibiotic) (2 sources) Penicillins Drug Allergy Turning blue [facility] Serotonin Reuptake Inhibitors (SSRIs) (3 sources) FLUoxetine Drug Allergy 014 Feels weird [facility] Sulfamethoxazole / Trimethoprim (2 sources) Sulfamethoxazole / Trimethoprim Drug Allergy odor [facility] Sulfonamides (antibiotic) (2 sources) Sulfonamides (Antibiotic) Drug Allergy odor [facility] (20 sources) aspirin; Translations: [aspirin] Drug Allergy 023 [facility] Comment on above: 04/10/2016 - angelo (20 sources) codeine; Translations: [Codeine] Drug Allergy unknown [facility] (20 sources) Penicillins; Translations: [PENICILLINS] Allergy to substance (disorder) Turning blue, Other: See Comments [facility] (20 sources) sulfamethoxazole / trimethoprim; Translations: [Bactrim DS] Drug Allergy [facility] (20 sources) Sulfonamides (Antibiotic); Translations: [Sulfa sensitivity] Allergy to substance (disorder) [facility] (20 sources) -Other; Translations: [-Other] Allergy to substance (disorder) Barbiturates, and amphetamines [facility] (6 sources) -No Known Food Allergies Allergy to substance (disorder) [facility] (20 sources) -No Environmental Allergies; Translations: [-No Environmental Allergies] Allergy to substance (disorder) [facility] (4 sources) Aspirin; Translations: [aspirin] Drug Allergy 023 Tremor (finding), Other: See Comments [facility] Comment on above: 04/10/2016 - ke (20 sources) Aluminum aspirin Drug Allergy [place] (20 sources) Barbiturates; Translations: [BARBITURATES] Propensity to adverse reactions to drug 014 Other (See Comments) [place] (20 sources) FLUoxetine; Translations: [fluoxetine] Drug Allergy 014 Feels weird, Unknown [place] (20 sources) FLUoxetine Drug Allergy 014 [place] (20 sources) Ibuprofen; Translations: [IBUPROFEN] Drug Allergy 018 Unknown [place] (20 sources) Meperidine; Translations: [meperidine] Drug Allergy 018 Unknown [place] (20 sources) predniSONE Drug Allergy [place] (20 sources) Sulfamethoxazole / Trimethoprim; Translations: [sulfamethoxazole-t rimethoprim] Drug Allergy [place] (20 sources) Sulfonamides (Antibiotic) Propensity to adverse reactions to drug [place] (20 sources) Amphetamines Propensity to adverse reactions to drug [place] (20 sources) Metals Allergy to substance [facility] (20 sources) Aluminum-Containing Compounds Propensity to adverse reactions to drug [place] (1 source) Penicillin; Translations: [penicillin] Drug Allergy Cyanosis (finding) [facility] (1 source) Sulfonamides (Antibiotic); Translations: [sulfa drugs] Drug allergy [facility] (14 sources) Sulfonamides (Antibiotic) Propensity to adverse reactions to drug Intolerance [facility] [employer] Work Phone: (7 sources) Amphetamine aspartate / Amphetamine Sulfate / Dextroamphetamine saccharate / Dextroamphetamine Sulfate Drug Allergy pain [employer] Other (13 sources) Penicillin G Drug Allergy 024 anaphylaxis [facility] (7 sources) Sulf-10 Drug allergy odor producing [facility] [employer] Other (16 sources) Sulfonamides (Antibiotic); Translations: [SULFA (SULFONAMIDE ANTIBIOTICS)] Allergy to substance nausea; strange odor , nausea; strange odor , odor producing [facility] (7 sources) Barbiturate Drug allergy [facility] (8 sources) Amphetamine Drug Allergy pain [facility] (2 sources) Aspirin Drug Allergy [facility] (2 sources) Barbiturates Drug allergy (disorder) [facility] (2 sources) FLUoxetine Drug Allergy [facility] (1 source) FLUoxetine Drug Allergy [facility] (1 source) Ibuprofen Drug Allergy [facility] (1 source) Meperidine Drug Allergy 023 [facility] (1 source) predniSONE Drug Allergy [facility] (2 sources) Sulfamethoxazole / Trimethoprim Drug Allergy 013 [facility] [place] [facility] (1 source) Sulfonamides (Antibiotic) Drug allergy (disorder) 013 [facility] [place] [facility] (9 sources) Sulfamethoxazole; Translations: [sulfamethoxazole] Drug Allergy Unknown Reaction [facility] (17 sources) Trimethoprim; Translations: [trimethoprim] Drug Allergy Unknown Reaction [facility] (8 sources) Barbiturate Drug Allergy [facility] (8 sources) Prednisone Propensity to adverse reactions [facility] (12 sources) traZODone; Translations: [trazodone] Drug Allergy restlessness [facility] (1 source) Amphetamine Drug Allergy [facility] (1 source) Aspirin Drug Allergy [facility] (1 source) Barbiturates Drug allergy (disorder) [facility] (1 source) FLUoxetine Drug Allergy [facility] (1 source) Ibuprofen Drug Allergy [facility] (1 source) Meperidine Drug Allergy [facility] (1 source) Penicillin Drug Allergy [facility] Medications Current Medications Medication Drug Class(es) Dates Sig (Normalized) Sig (Original) acetaminophen 500 mg oral tablet (20 sources) Start: 08-15-2023 take 1 tablet by mouth every six hours as needed for pain Start: 09-18-2022 End: 11-19-2022 Acetaminophen 500 MG Oral Ta blet 09/18/2022 - 11/19/2022 Provider: Start: 09-13-2022 End: 03-12-2023 take 2 tablets by mouth every eight hours Acetaminophen (Tylenol Extra Strength) 500 mg tablet Discontinued 1000 MG PO Every 8 hours 180 30 September 13, 2022 12:00am March 12, 2023 5:54am Start: 02-14-2022 End: 09-14-2022 take 1 tablet by mouth every eight hours as needed for pain Acetaminophen 650 mg Tablet Extended Release Discontinued 650 MG PO Q8H as needed for Pain September 11, 2022 12:00am September 14, 2022 [...] Oral Tablet 11/17/2020 Provider: Karla Clark CNP [id number] 200 actuat albuterol 0.09 mg/actuat metered dose inhaler (20 sources) beta2-Adrenergic Agonist Start: 03-26-2023 albut johana HFA 90 mcg/act inhaler Q6H 03/26/2023 Active Start: 03-26-2023 take 1 puff(s) by in halation every six hours as needed for wheezing Start: 09-11-2022 End: 03-12-2023 take 1 puff(s) by inhalation every six hours as needed for wheezing Albuterol Sulfate 90 mcg/actuation Hfa Aerosol Inhaler Discontinued 1 - 2 PUFF INHALATION Q6H as needed for Shortness Of Breath Or Wheezing September 11, 2022 12:00am March 12, 2023 [...] Start: 05-22-2017 End: 05-22-2017 VENTOLIN HFA 90MCG/ACTUAT [place] 05/22/2017 - 05/22/2017 Provider: Start: 05-29-2016 [...] Start: 01-05-2016 End: 01-05-2016 VENTOLIN HFA 90MCG/ACTUAT [place] SC 01/05/2016 - 01/05/2016 Provider: Start: 01-05-2016 [...] Start: 09-11-2022 take 1 tablet by emiliano th twice daily Start: 06-28-2018 End: 05-02-2020 AMANTADINE HCL 100 [...] by mouth two times a day. amylase 153930 unt / lipase 9000 unt / protease [id number] unt oral capsule (18 sources) take 1 capsule by mouth two times weekly Digestive Enzymes (ACIDOLL) CAPS Take by mouth Twice a Week Active Digestive Enzyme s (Bevitrol) capsule Take 1 capsule by mouth Active take 1 capsule by mo ut once daily at mealtime maibtb-wgplxydy-anrtpff (ENZADYNE) 9,000-112,500- 112,500 unit capsule Take 1 capsule by mouth daily with food. 0 Active Comment on above: Take 1 capsule by mo [facility] daily with food. B12 Folate 800-800 MCG Oral Capsule (3 sources) Start: 03-16-2020 B12 Folate 800-800 MCG Oral Capsule 03/16/2020 Provider: Karla Clark CNP benztropine mesylate 0.5 mg oral tablet (20 sources) Anticholinergic, Antihistamine Start: 04-23-2024 take 0.5 mg by mouth once 0.5 mg, Oral, ONCE, 1 dose, On Yasmine 04/23/24 at 2200 Start: 09-11-2022 take 1 tablet by emiliano twice daily Start: 07-31-2018 End: 05-06-2020 Benztropine Mesylate 0.5 MG Oral Tablet 03/31/2020 Provider: Start: 06-28-2018 End: 05-02-2020 BENZ[facility]OPINE 0.5 MG [facility] 06/04 - 05/02/2020 Provider: Start: 06-28-2018 End: 06-28-2018 BENZTROPINE 0.5 MG [facility] 06/04 - 06/28/2018 Provider: Start: 06-28-2018 End: 06-28-2018 BENZTROPINE 0.5MG [facility] 06/28 - 06/28/2018 Provider: take 1 tablet by [facility] every twenty-four hours Benztropine Mesylate 0.5 MG 1 tablet at bedtime Orally Once a day Active Comment on above: Take 0.5 mg by mouth two times a day. brompheniramine maleate 0.4 mg/ml / dextromethorphan hydrobromide 2 mg/ml / pseudoephedrine hydrochloride 6 mg/ml oral solution (20 sources) alpha-Adrenergic Agonist, Uncompetitive O-jqdokk-R-aspartate Receptor Antagonist, Sigma-1 Agonist Start: 09-04-2018 Bromfed [...] Karla Clark CNP calcium carbonate 1250 mg oral tablet (20 sources) Start: 06-22-2023 take 1 tablet by mouth once daily Start: 06-22-2023 End: 07-22-2023 take 1 tablet by mouth in the morning calcium carbonate (Os-Rl) 1250 (500 Ca) MG tablet Take 1,250 mg by mouth in the morning. 0 06/22/2023 07/22/2023 Active Start: 06-28-2018 End: 06-28-2018 CALCIUM CARBONATE 500 mg calcium(1,250 MG) [facility] 06/28/2018 - 06/28/2018 Provider: End: 01-11-2016 take [...] oral tablet (2 sources) Vitamin D calcium citrate- vitamin D (CITRACAL+D) 315-200 MG-UNIT per tablet Calcium Oyster Shell 1250 (500 Ca) MG Oral Tablet (3 sources) Start: 01-27-2024 Calcium Oyster Shell 1250 (500 Ca) MG Oral Tablet 01/27/2024 Provider: Carpal Tunnel Wrist Stabilizer Miscellaneous (12 sources) Start: 07-23-2019 Carpal Tunnel Wrist Stabilizer Miscellaneous 07/23/2019 Provider: Karla Clark CNP clindamycin 20 mg/ml vaginal cream (10 sources) Lincosamide Antibacterial Start: 02-06-2023 clindamycin (CLEOCIN) 2 % vaginal cream Place vaginally nightly. [...] Start: 12-14-2021 take 1 tablet by mouth once daily Start: 02-03-2016 End: 07-28-2021 cloNIDine HCl 0.1 [...] 100 mg oral granules (20 sources) Uncompetitive Z-oirpzn-L-aspartate Receptor Antagonist, Sigma-1 Agonist Start: 08-15-19 Dextromethorphan -guaiFENesin 5-100 MG pack Every 12 hours 08/15/2023 Active Start: 08-15-2023 take 1 tablet by emiliano th every twelve hours as needed for cough Start: 08-15-2023 dextromethorph an-guaifenesin Active PO Every 12 hours August 15, 2023 12:00am Start: 03-26-2023 End: 03-26-2023 Dextromethorphan-Guaifenesin (Mucus Relief Dm) 20-400 mg Tablet Discontinued 30 - 600 TAB March 26, 2023 12:00am March 26, 2023 1:46am Start: 01-18-2023 End: 03-28-2023 take 1 tablet by mouth every twelve hours as needed for congestion Dextromethorphan-Guaifenesin (Mucus Dm) 30-600 mg tablet extended release 12 hr Discontinued 1 TAB PO Q12H as needed for Congestion March 26, 2023 12:00am March 28, 2023 12:01pm Start: 01-18-2023 take 1 tablet by mouth once de xtromethorphan-guaiFENesin (Mucinex DM) 30-600 MG 12 hr tablet Take 1 [...] gel (20 sources) Nonsteroidal Anti-inflammatory Drug Start: 08-15-2023 apply 2 g topically four times daily as needed for pain Start: 08-15-2023 apply 2 g topically four times daily [...] Start: 03-12-2023 take 1 capsule by mouth at bedtime Start: 08-02-2021 End: 11-19-2022 Colace 100 MG Oral Capsule 0 12/20/2021 - 11/19/2022 Provider: Karla Clark CNP Comment on above: Take 100 mg by mouth once daily. famotidine 20 mg oral tablet (20 sources) Histamine-2 Receptor Antagonist Start: 09-22-2019 End: 11-19-2022 take 1 tablet by mouth twice daily Start: 09-22-2019 End: 11-19-2022 Famotidine 20 MG [...] 1 spray(s) nasa l route twice daily Start: 09-11-2022 End: 03-12-2023 take 1 spray(s) nasal route twice daily Fluticasone Propionate 50 mcg/actuation Nordman,Suspension Discontinued 1 SPRAY INTRANASAL Twice daily September [...] Sprays in each nostril once daily. Fluticasone Propion-Salmeter ol (20 sources) Corticosteroid, beta2-Adrenergic Agonist Start: 08-15-2023 Start: 08-15-2023 Fluticasone Pr opion-Salmeterol (Advair Diskus) 250-50 mcg/dose blister with device [...] take 1 tablet by mouth once daily Start: 09-11-2022 End: 03-12-2023 take 1 tablet by mouth once daily Folic Acid 800 mcg Tablet Discontinued 800 MCG PO Daily September 11, [...] Tablet 07/31/2023 Provider: Start: 06-22-2023 End: 11-09-2025 Comment on above: Take 1 tablet by emiliano th daily before breakfast. lithium carbonate 300 mg oral tablet (20 sources) Start: 04-23-2024 300 mg, Oral, ONCE, 1 dose, On Yasmine 04/23/24 at 2200, Maintain adequate fluid and sodium intake Start: 10-08-2023 [place] Carbon ate 300 MG Oral Tablet 10/08/2023 Provider: Start: 08-20-2023 take 1 capsule by mo uth twice daily Start: 09-11-2022 End: 03-12-2023 take 1 capsule by mouth once daily at bedtime [place] Carbonate 300 mg capsule Discontinued 300 MG PO Daily at bedtime September 11, 2022 12:00am March 12, 2023 5:59am Start: 09-11-2022 End: 10-15-2023 take 1 capsule by mouth twice daily [place] Carbonate 150 mg capsule Discontinued 150 MG PO Twice daily September 11, 2022 12:00am August 20, 2023 8:53am Start: 09-11-2022 take 150 mg by mouth once daily in the morning [place] Carbonate Active 150 MG PO Every morning September 11, 2022 12:00am Start: 06-28-2018 End: 02-21-2023 [place] Carbonate 300MG Oral Tablet 07/31/2018 - 02/21/2023 [...] by mouth twice daily in the evening [place] Carbonate ER 300 MG 1 tablet am [...] End: 11-19-2022 take 1 tablet by mouth once daily Loratadine (CLAR ITIN PO) Take by mouth [...] Nonsteroidal Anti-inflammatory Drug Start: 06-18-19 End: 11-20-19 23 take 1 tablet by mouth once daily Comment on above: Take 15 mg by mouth once daily. 24 hr nicotine 0.875 mg/hr transdermal system (20 sources) Cholinergic Nicotinic Agonist Start: 12-16-19 24 Nicotine 21 MG/24HR Transdermal Patch 24 Hour [...] 06-12-2016 End: 07-23-2019 NICOTINE 14 MG/24 HR [facility] 06/12/2016 - 07/23/2019 Provider: Start: 06-12-2016 End: 06-12-2016 NICOTINE 14 MG/24 HR [facility] 06/12/2016 - 06/12/2016 Provider: Start: 06-12-2016 End: 06-12-2016 NICOTINE 14MG/24 HR [facility] 06/12/2016 - 06/12/2016 Provider: End: 03-06-2016 nicotine 14 mg/24 hr transde rmal patch 24 hour 03/06/2016 apply 1 patch (14 mg) by transdermal route once daily prn nystatin [id number] unt/ml topic al cream (20 sources) Polyene Antifungal Start: 08-15-2023 Start: 08-16-2022 End: 03-26-2023 Nystatin 100,000 unit/gram C ream Discontinued 1 APPLIC TOPICAL Twice daily March 26, 2023 12:00am March 26, 2023 2:02am Start: 08-16-2022 nystatin (MYCO STATIN) [id number] UNIT/GM cream Indications: Cutaneous candidiasis Apply topically 2 times daily. 30 g 1 08/16/2022 Active Nystatin Active Comment on above: Apply to affected ar ea two times a day. OLANZapine 5 mg oral tablet (20 sources) Atypical Antipsychotic Start: 08-20-2023 OLANZapine (ZYPREXA) 15 MG tablet 10/04/2024 Active Start: 08-15-2023 End: 08-20-2023 take 2 tablets by mouth once daily at bedtime Olanzapine (Zyprexa) 5 mg tablet Discontinued 10 MG PO Daily at bedtime August 15, 2023 12:00am August 20, 2023 8:53am Start: 03-28-2023 End: 10-15-2023 OLANZapine (ZYPREXA) 5 MG ta blet 11/02/2024 Active Start: 03-28-2023 End: 12-16-2023 take 1 tablet by mouth every twelve hours as needed Olanzapine 5 mg Tablet Discontinued 5 MG PO Every 12 hours as needed for Agitation March 28, 2023 12:00am December 16, 2023 [...] Ordered oxyCODONE hydrochloride 5 mg oral tablet (20 sources) Opioid Agonist Start: 06-23-2023 oxyCODONE (Roxicodone) 5 MG immediate release tablet 06/23/2023 Active Start: 09-13-2022 End: 03-12-2023 take 1 capsule by mouth every four to six hours as needed for pain Oxycodone 5 mg capsule Discontinued 5 MG PO EVERY 4-6 HOURS as needed for pain 30 12September 13, 2022 March 12, 2023 [...] a tablet TID 11/01/2024 Active Start: 12-24-2023 Start: 12-24-2023 take 12.5 mg by mout h three times daily Quetiapine Active 12.5 MG PO TID@0900,1300,1700 0 December 24, 2023 12:00am Start: 04-02-2023 take 1 tablet by emiliano th at bedtime Start: 03-28-2023 QUEtiapine Fum arate 25 MG Oral Tablet 04/09/2023 Provider: Start: 03-28-2023 End: 12-24-2023 Quetiapine 25 mg Tablet Disc ontinued 12.5 MG PO Twice daily August 15, 2023 12:00am December 24, 2023 1:20pm Start: 03-28-2023 End: 12-24-2023 take 12.5 mg by mouth twice daily Quetiapine Discontinued 12.5 MG PO Twice daily August 15, 2023 12:00am December 24, 2023 1:20pm Start: 09-11-2022 End: 03-15-2023 take 1 tablet by mouth once daily at bedtime Quetiapine 300 mg tablet extended release 24 hr Discontinued 300 MG PO Daily at bedtime September 11, 2022 12:00am March 15, 2023 10:16am Start: 09-11-2022 End: 08-20-2023 take 1 tablet by mouth once daily at bedtime Quetiapine 400 mg tablet extended release 24 hr Discontinued 400 MG PO Daily at bedtime [...] Take 600 mg by mouth nightly Active take 0.5 tablet by m out twice daily QUEtiapine (SEROQUEL) 25 mg tablet [...] 2 tablets (100 mg) by oral route [facility] End: 03-05-2017 take 1 tablet [...] disintegrating oral tablet (1 source) Start: 11-10-19 take 1 tablet by mouth once daily as needed rimegepant sulfate (NURTEC) 75 MG TBDP Indications: Intractable migraine with 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 Take 75 mg by mouth as needed (as needed , once a day for severe headche) 8 tablet 2 11/09/2024 Active risperiDONE 37.5 mg injection (20 sources) Atypical Antipsychotic Start: 08-15-19 RisperDAL Consta 37.5 MG Intramuscular Suspension Reconstituted ER 09/13/2023 Provider: Start: 12-14-2021 End: 10-15-2023 inject 25 mg by intramuscular injection every other week Risperidone Microspheres (Risperdal Consta) 25 mg/2 mL suspension,extended rel recon Discontinued 25 MG IM EVERY 2 WEEKS September 11, 2022 12:00am August 15, 2023 9:20pm Start: 06-17-2020 End: 05-08-2021 RisperDAL Consta 25 MG Intra muscular Suspension Reconstituted ER 06/17/2020 - 05/08/2021 Provider: Start: 06-28-2018 End: 05-02-2020 RisperDAL 0.5MG Oral Tablet 07/31/2018 - 11/06/2018 Provider: Start: 06-28-2018 End: 05-02-2020 risperiDONE 1 MG OR TABS - 05/02/2020 Provider: Conversion Provider risperiDONE micr [...] 25 mg oral tablet (20 sources) Start: 025 End: 025 take 3 tablets by mouth twice daily [...] End: 02-28-2023 take 1 tablet by mouth once daily at bedtime Comment on above: Take 25 mg by mouth once daily. Vitamin B-12 500 MCG Oral Tablet (4 sources) Start: 09-24-2023 Vitamin B-12 500 MCG Oral Tablet 09/24/2023 Provider: vitamin b12 0.5 mg oral tablet (20 sources) Vitamin B12 Start: 03-26-2023 take 1 tablet by mouth once daily Start: 03-26-2023 take 1 tablet by emiliano once daily Cyanocobalamin (Vitamin B-12) (Vitamin B-12) 500 mcg Tablet Active 500 MCG PO Daily March 26, 2023:00am Start: 09-11-2022 End: 03-12-2023 take 1 tablet [...] 0.5 tablet by mouth every six hours as needed for pain Hydrocodone-Acetami nophen 5-325 mg Tablet Discontinued 0.5 TAB PO Q6H as needed for Pain March 26, 2023 12:00am March 28, 2023 12:01pm Start: 09-11-2022 End: 09-14-2022 take 1 tablet by mouth every six hours as needed for pain Hydrocodone-Acetaminophen 5-325 mg table t Discontinued 1 TAB PO Q6H as needed for Pain September 11, 2022 12:00am September 14, 2022 [...] Whitaker CNP Start: 11-03-2021 End: 05-22-2023 take 1 capsule by mouth once daily Benzonatate 100 mg Capsule Discontinued 100 MG PO Daily September 13, [...] 04-17-2018 End: 04-17-2018 BROMFED DM 2-30-10MG/5 ML [place] 04/17/2018 - 04/17/2018 Provider: Start: 07-30-2017 End: 05-02-2020 BROMFED DM 2-30-10 MG/5 ML M [facility] 07/30/2017 - 05/02/2020 Provider: Start: 07-30-2017 End: 07-30-2017 BROMFED DM 2-30-10 MG/5 ML [facility] 07/30/2017 - 07/30/2017 Provider: Start: 07-30-2017 End: 07-30-2017 BROMFED DM 2-30-10MG/5 ML [place] 07/30/2017 - 07/30/2017 Provider: Start: 05-17-2017 End: 05-02-2020 BROMFED DM 2-30-10 MG/5 ML [facility] 05/17/2017 - 05/02/2020 Provider: Start: 05-17-2017 End: 05-17-2017 BROMFED DM 2-30-10 MG/5 ML [facility] 05/17/2017 - 05/17/2017 Provider: Start: 05-17-2017 End: 05-17-2017 BROMFED DM 2-30-10MG/5 ML [place] 05/17/2017 - 05/17/2017 Provider: Start: 05-22-2016 End: 07-23-2019 BROMFED DM 2-30-10 MG/5 ML [facility] 05/22/2016 - 07/23/2019 Provider: Start: 05-22-2016 End: 05-22-2016 BROMFED DM 2-30-10 MG/5 ML [facility] 05/22/2016 - 05/22/2016 Provider: Start: 05-22-2016 End: 05-22-2016 BROMFED DM 2-30-10MG/5 ML [place] 05/22/2016 - 05/22/2016 Provider: Start: 12-09-2015 End: 07-23-2019 BROMFED DM 2-30-10 MG/5 ML [facility] 12/09/2015 - 07/23/2019 Provider: Start: 12-09-2015 End: 12-09-2015 BROMFED DM 2-30-10 MG/5 ML [facility] 12/09/2015 - 12/09/2015 Provider: Start: 12-09-2015 End: 12-09-2015 BROMFED DM 2-30-10MG/5 ML [place] 12/09/2015 - 12/09/2015 Provider: Symbicort 160-4.5 [...] Calcium Start: 11-26-2018 End: 03-16-2020 Calcium 600+D3 [id number] Oral Tablet 11/26/2018 - 03/16/2020 Provider: Karla Clark CNP Start: 11-26-2018 End: 11-21-2019 Calcium 600+D3 [id number] Oral Tablet 11/26/2018 - 11/21/2019 Provider: Karla Clark CNP Start: 07-31-2018 Calcium 600+D3 [id number] Oral Tablet 07/31/2018 Provider: Start: 08-24-2012 take 2 tablets by [facility] once daily Calcium 600 D Tab [...] D(3) 600 mg(1, 500mg) -400 UNIT [facility] 11/09/2016 - 11/09/2016 Provider: CALCIUM 600 + D(3) 600 mg(1,500mg) -400 UNIT [facility] (20 sources) Start: 06-28-2018 End: 05-02-2020 CALCIUM 600 + D(3) 600 mg(1,500mg) -400 UNIT [facility] 06/28/2018 - 05/02/2020 Provider: Start: 11-20-2017 End: 05-02-2020 CALCIUM 600 + D(3) 600 mg(1, 500mg) -400 UNIT [facility] 11/20/2017 - 05/02/2020 Provider: Start: 11-09-2016 End: 05-02-2020 CALCIUM 600 + D(3) 600 mg(1, 500mg) -400 UNIT [facility] 11/09/2016 - 05/02/2020 Provider: CALCIUM 600 + D(3) 600 mg(1,500mg)-400 UNIT [facility] (3 sources) Start: 06-28-2018 End: 06-28-2018 CALCIUM 600 + D(3) 600 mg(1,500mg)-400 UNIT [facility] 06/28/2018 - 06/28/2018 Provider: Start: 11-20-2017 End: 11-20-2017 CALCIUM 600 + D(3) 600 mg(1, 500mg)-400 UNIT [facility] 11/20/2017 - 11/20/2017 Provider: Start: 11-09-2016 End: 11-09-2016 CALCIUM 600 + D(3) 600 mg(1, 500mg)-400 UNIT [facility] 11/09/2016 - 11/09/2016 Provider: CALCIUM 600 + D(3) 600 mg(1,500mg)-400 UNIT [facility] (6 sources) Start: 06-28-2018 End: 06-28-2018 CALCIUM 600 + D(3) 600 mg(1,500mg)-400 UNIT [facility] 06/28/2018 - 06/28/2018 Provider: Start: 11-20-2017 End: 11-20-2017 CALCIUM 600 + D(3) 600 mg(1, 500mg)-400 UNIT [facility] 11/20/2017 - 11/20/2017 Provider: Start: 11-09-2016 End: 11-09-2016 CALCIUM 600 + D(3) 600 mg(1, 500mg)-400 UNIT [facility] 11/09/2016 - 11/09/2016 Provider: Calcium 600+D 600-400 [...] Calcium-Vit D2) 500 mg(1,250mg) -200 unit Tablet (7 sources) Start: 03-26-2023 End: 03-26-2023 Calcium Carbonate-Vitamin D2 (Oyster Shell Calcium-Vit D2) 500 mg(1,250mg) -200 unit Tablet Discontinued TAB March 26, 2023 12:00am March 26, 2023 1:40am Start: 03-26-2023 End: 03-26-2023 Calcium Carbonate-Vitamin D2 [...] Antimicrobial Start: 08-15-2023 End: 12-16-2023 Ciprofloxacin Hcl 500 mg tablet Discontinued 500 MG PO Twice daily August [...] cough / cold CORDICIDIN COUGH AND COLD [place] (20 sources) Start: 08-21-2016 End: 08-21-2016 CORDICIDIN COUGH AND COLD [place] 08/21/2016 - 08/21/2016 Provider: Start: 06-26-2016 End: 06-26-2016 CORDICIDIN COUGH AND COLD [place] 06/26/2016 - 06/26/2016 Provider: Start: 04-10-2016 End: 07-23-2019 CORDICIDIN COUGH AND COLD [place] 04/10/2016 - 07/23/2019 Provider: Start: 04-10-2016 End: 04-10-2016 CORDICIDIN COUGH AND COLD [place] 04/10/2016 - 04/10/2016 Provider: CORDICIDIN COUGH AND COLD [place] (20 sources) Start: 08-21-2016 End: 05-02-2020 CORDICIDIN COUGH AND COLD [place] 08/21/2016 - 05/02/2020 Provider: Start: 08-21-2016 End: 08-21-2016 CORDICIDIN COUGH AND COLD [place] 08/21/2016 - 08/21/2016 Provider: Start: 06-26-2016 End: 05-02-2020 CORDICIDIN COUGH AND COLD [place] 06/26/2016 - 05/02/2020 Provider: Start: 06-26-2016 End: 06-26-2016 CORDICIDIN COUGH AND COLD [place] 06/26/2016 - 06/26/2016 Provider: Start: 04-10-2016 End: 07-23-2019 CORDICIDIN COUGH AND COLD [place] 04/10/2016 - 07/23/2019 Provider: Start: 04-10-2016 End: 04-10-2016 CORDICIDIN COUGH AND COLD [place] 04/10/2016 - 04/10/2016 Provider: doxycycline hyclate 100 [...] MG OR TABS 03/03 - 07/23/2019 Provider: 120 actuat formoterol fumarate 0.005 mg/actuat / mometasone furoate 0.2 mg/actuat metered dose inhaler (20 sources) Corticosteroid, beta2-Adrenergic Agonist Start: 03-26-2023 End: 03-28-2023 take 1 puff(s) [...] 2022 12:00am March 12, 2023 5:55am Start: 07-31-2018 End: 05-22-2023 Dulera 200-5MCG/ACT Inhalati on Aerosol 10/23/2018 - 10/31/2019 Provider: Karla Clark [...] Start: 03-26-2023 take 1 capsule by mo ut once daily Lactobacillus Acidophilus (Acidophilus) Capsule Active [...] Or al Capsule 07/31/2018 Provider: lactobacillus acidophilus [id number] unt / pectin 10 mg oral capsule (19 sources) Start: 03-26-2023 End: 03-26-2023 take 1 capsule by mouth once daily Acidophilus-Pectin, [place] (Acidophilus Probiotic) 100 million cell-10 mg Capsule Discontinued 1 CAP PO Daily March 26, 2023 12:00am March 26, 2023 1:21am Start: 02-21-2017 take 1 capsule by [facility] twice daily Acidophilus Probiotic 100 million cell-10 [...] 02/12/2022 - 03/20/2022 Provider: Start: 07-28-2021 End: 07-20-2022 take 30-600 tablets by mouth every twelve [...] 10/02 - 07/23/2019 Provider: polyethylene glycol 3350 52270 mg powder for oral solution (20 sources) Osmotic Laxative Start: 11-11-2019 End: 05-22-2023 take 17 g by mouth once daily at bedtime Polyethylene Glycol 3350 17 gram/dose Powder Discontinued 17 GM PO Daily at bedtime [...] Start: 01-11-2016 take 1 tablet by emiliano once daily prednisone 20 mg oral tablet 08/21/2016 take 1 tablet (20 mg) by mouth daily x 7 days Start: 08-24-2012 take 3 tablets by mo [facility] once daily predniSONE 20 mg Tab 3 [...] Start: 04-23-2018 End: 04-23-2018 PROPRANOLOL 20 MG MIS 04/23 - 04/23/2018 Provider: Start: 04-23-2018 End: [...] Start: 02-28-2016 End: 07-23-2019 PROPRANOLOL 80 MG MIS 02/27 - 07/23/2019 Provider: Start: 02-28-2016 End: [...] Start: 09-22-2015 End: 07-23-2019 PROPRANOLOL 80 MG [facility] 09/21 - 07/23/2019 Provider: Start: 09-22-2015 End: 09-22-2015 PROPRANOLOL 80 MG [facility] 09/21 - 09/22/2015 Provider: Start: 09-22-2015 End: 09-22-2015 PROPRANOLOL 80MG [facility] 2015 - 09/22/2015 Provider: End: 07-30-2017 take [...] MCG/ACT UAT MISC 06/28/2018 - 05/02/2020 Provider: AMELIA PRESSAIR 400MCG/ACTU AT MISC (2 sources) Start: 06-28-2018 End: 06-28-2018 TUDORZA PRESSAIR 400MCG/ACTU AT MISC 06/28/2018 - 06/28/2018 Provider: AMELIA PRESSAIR 400MCG[facility]U [facility] (4 sources) Start: 06-28-2018 End: 06-28-2018 TUDORZA [...] Problem Classification Problem Date Documented Date Episodic/Chronic Abdominal pain (20 sources) Flank pain; Translations: [Unspecified abdominal pain] Onset: 4 03-13-2023 Episodic Acute and unspecified renal failure (19 sources) Acute renal failure syndrome; Translations: [Acute kidney failure, unspecified] Onset: 4 03-26-2023 Episodic Administrative/social admission (3 sources) Counseling procedure with [...] Translations: [Hypertensive disorder] Onset: 6 03-13-2023 Chronic Fracture of upper limb (20 sources) Other displaced fracture of upper end of right humerus, initial encounter for closed fracture; Translations: [Fracture of upper end of humerus] Onset: 3 Episodic Headache, including migraine (20 sources) Migraine, [...] vomiting; Translations: [Nausea with vomiting, unspecified] Onset: 4 03-26-2023 Episodic Nonmalignant breast conditions (1 source) Mammary duct ectasia; 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, 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 Nonmalignant breast conditions (2 sources) Lesion of breast; Translations: [Breast lump] Episodic Nonspecific chest pain (20 sources) Atypical chest pain; Translations: [Chest pain] Onset: 4 Resolved: 3 05-04-2014 Episodic Other aftercare (1 source) Other long term care administrator (current) drug therapy; Translations: [OTH MANUFACTURING COORDINATOR CURRENT DRUG THERAPY] Onset: 3 Episodic Other aftercare (2 sources) On lithium; Translations: [Other long term care administrator (current) drug therapy] 02-18-2024 Episodic Other connective [...] right shoulder Episodic Other non-traumatic joint disorders (3 sources) Pain in right knee; Translations: [Right [...] (3 sources) Other specified postprocedural states Episodic Residual codes; unclassified (1 source) Postprocedural state finding; Translations: [Other specified postprocedural states] 02-08-2025 Episodic Schizophrenia and other psychotic disorders (20 sources) Schizoaffective disorder; Translations: [Schizoaffective Disorder] Onset: 9 Chronic Schizophrenia and other psychotic disorders (17 sources) Brief psychotic disorder; Translations: [Acute psychosis] Onset: 4 08-15-2023 Episodic Spondylosis; intervertebral disc disorders; other back problems [...] Index 30.0-30.9, adult Onset: 8 Chronic Unclassified (14 sources) Parkinson's disease; Translations: [Parkinson's disease] Onset: [...] Classification Problem Date Documented Da te Episodic/Chronic Acute bronchitis (15 sources) Acute bronchitis; Translations: [Acute bronchitis, unspecified] Onset: 11-19-2022 Resolved: 10-04-2023 11-19-2022 Episodic Chronic obstructive pulmonary disease and bronchiectasis (20 sources) Chronic obstructive pulmonary disease and bronchiectasis; Translations: [Fagerstrom Score] Onset: 03-31-2019 Conditions associated with dizziness or vertigo (6 sources) Dizziness and giddiness Onset: 02-21-2016 Episodic Genitourinary symptoms and ill-defined conditions (5 [...] Translations: [Laboratory examination, unspecified] Onset: 03-05-2017 Episodic Neoplasms of unspecified nature or uncertain [...] unspecified; Translations: [Pain, unspecified] Onset: 05-31-2024 Episodic Unclassified (18 sources) Patient encounter status; [...] Aortic Sinus Valsalva 2.9 cm [facility] Aortic Sinus Valsalva Index 1.72 cm/m2 [facility] Ascending Aorta 2.7 cm [facility] Ascending Aorta Index 1.6 cm/m2 [facility] AV Cusp Mmode 1.4 cm [facility] AV Mean Gradient 2 mmHg [facility] AV Mean Velocity 0.6 m/s [facility] AV Peak Gradient 3 mmHg [facility] AV Peak Velocity 0.9 m/s [facility] AV Velocity Ratio 1 [facility] AV VTI 19.1 cm [facility] Body surface area Derived from formula 1.72 m2 [facility] E/E' Lateral 4.84 [facility] EF BP 64 % 55 - 100 % [facility] EF Physician 65 % [facility] Est. RA Pressure 3 mmHg [facility] Fractional Shortening 2D 16 % 28 - 44 % [facility] Interpretation and review of laboratory results Abnormal [facility] IVSd 1.7 cm Abnormal 0.6 - 0.9 cm [facility] LA Area 2C 11.2 cm2 [facility] LA Area 4C 13 cm2 [facility] LA Major [place] 4.5 cm [facility] LA Minor [place] 4.6 cm [facility] LA Volume BP 26 mL 22 - 52 mL [facility] LA Volume Index BP 15 ml/m2 Abnormal 16 - 34 ml/m2 [facility] LA Volume Index MOD A2C 13 ml/m2 Abnormal 16 - 34 ml/m2 [facility] Volume Index MOD A4C 18 ml/m2 16 - 34 ml/m2 [facility] LA Volume MOD A2C 22 mL 22 - 52 mL [facility] LA Volume MOD A4C 31 mL 22 - 52 mL [facility] LV E' Lateral Velocity 6.2 cm/s [facility] LV EDV A2C 42 mL [facility] LV EDV A4C 49 mL [facility] LV EDV Index A2C 25 mL/m2 [facility] LV EDV Index A4C 29 mL/m2 [facility] LV Ejection Fraction A2C 58 % [facility] LV Ejection Fraction A4C 69 % [facility] LV ESV A2C 18 mL [facility] LV ESV A4C 15 mL [facility] LV ESV Index A2C 11 mL/m2 [facility] LV ESV Index A4C 9 mL/m2 [facility] [employer] [facility] LV Mass 2D 171.6 g Abnormal 67 - 162 g [facility] LV Mass 2D Index 101.6 g/m2 Abnormal 43 - 95 g/m2 [facility] LV RWT Ratio 0.81 [facility] LVIDd 3.2 cm Abnormal 3.9 - 5.3 cm [facility] LVIDd Index 1.89 cm/m2 [facility] LVIDs 2.7 cm [facility] LVIDs Index 1.6 cm/m2 [facility] LVOT Mean Gradient 1 mmHg [facility] LVOT Peak Gradient 3 mmHg [facility] [employer] LVOT Peak Velocity 0.9 m/s [facility] LVOT VTI 16.1 cm [facility] [employer] LVOT:AV VTI Index 0.84 [facility] [employer] LVPWd 1.3 cm Abnormal 0.6 - 0.9 cm [facility] MV A Velocity 0.78 m/s [facility] MV E Velocity 0.3 m/s [facility] MV E Wave Deceleration Time 250 ms [facility] MV E/A 0.38 [facility] PV Max Velocity 0.7 m/s [facility] [employer] PV Peak Gradient 2 mmHg [facility] RVSP 14 mmHg [facility] [employer] Sinotubular Junction 2.5 cm [facility] Osmosis TAPSE 2.2 cm 1.7 cm [facility] TR Max Velocity 1.67 m/s [facility] TR Peak Gradient 11 mmHg [facility] Left Ventricle: Norm al left ventricular systolic [...] Image quality: adequate. No contrast was given. [facility] CV CPACS [facility] Radiology Study observation (narrative) [facility] APTTon 04-23-2024 aPTT Coag (Bld) [Time] 24.6 s [facility] Comment on above: IV Heparin Therapy Range: 66.0-92.0 sec aPTT Coag (Bld) [Time] 24.6 s Normal 23.0-36.[address] [facility] Comment on above: Result Comment: IV Heparin Therapy Range: 66.0-92.0 sec Performed By: #### P T, CDP, TROPI, PTT, CP #### [facility] [employer] [address] [place], [place] [id number] [employer] Worker: Tej Locke MD BUN, POCon 04-23-2024 Urea nitrogen [Mass/Vol] 25 mg/dL Normal 8- [facility] CALCIUM, IONIC (POC)on 04-23 Calcium.ionized (Bld) [Moles/Vol] 1.28 mmol/L 1.15 - 1.33 mmol/L [facility] CBC with Auto Differentialon 04-23-2024 Basophils (Bld) [#/Vol] 0.04 10*3/uL [facility] Basophils/100 WBC (Bld) 1 % 0 - 2 % B on [facility] Eosinophils (Bld) [#/Vol] 0.20 10*3/uL [facility] Eosinophils/100 WBC (Bld) 4 % 1 - 4 % [facility] Erythrocyte distribution width (RBC) [Ratio] 12.9 % 11.8 - 14.4 % [facility] Hematocrit (Bld) [Volume fraction] 38.4 % 36.3 - 47.1 % [facility] Hemoglobin (Bld) [Mass/Vol] 12.0 g/dL 11.9 - 15.1 g/dL [facility] Immature granulocytes (Bld) [#/Vol] [facility] Health Immature granulocytes/100 WBC (Bld) 0 % 0 [facility] Interpretation and review of laboratory results Abnormal [facility] Lymphocytes/100 WBC (Bld) 30 % 24 - 43 % [facility] Lymphocytes/100 WBC (Bld) 1.53 % [facility] MCH (RBC) [Entitic mass] 32.3 pg 25.2 - 33.5 pg [facility] MCHC (RBC) [Mass/Vol] 31.3 g/dL 28.4 - 34.8 g/dL [facility] MCV (RBC) [Entitic vol] 103.5 fL High 82.6 - 102.9 fL [facility] Monocytes/100 WBC (Bld) 10 % 3 - 12 % B on [facility] Monocytes/100 WBC (Bld) 0.51 % B on [facility] Neutrophils/100 WBC (Bld) 55 % 36 - 65 % [facility] Nucleated RBC/100 WBC (Bld) [Ratio] 0.0 % 0.0 per 100 WBC [facility] Platelet mean volume (Bld) [Entitic vol] 10.4 fL 8.1 - 13.5 fL [facility] Platelets (Bld) [#/Vol] 223 10*3/uL [facility] RBC (Bld) [#/Vol] 3.71 10*6/uL Low 3.95 - 5.11 m/uL [facility] RBC (Bld) [#/Vol] MACROCYTOSIS PRESENT [facility] Segmented neutrophils/100 WBC (Bld) 2.83 % [facility] WBC other (Bld) [#/Vol] 5.1 B on [facility] Bon [facility] CBC with Diffon 04-23-2024 Abs. Basophil 0.04 k/uL Normal 0.00-0.20 [facility] Comment on above: Performed By: #### P T, CDP, TROPI, PTT, CP #### [address] [address] [employer] Worker: Tej Locke MD Abs.Imm.Granulocyte <0.03 Normal 0.00-0.30 [facility] Comment on above: Performed By: #### P T, CDP, TROPI, PTT, CP #### [place] [address] [employer] Worker: Tej Locke MD Abs.Neutrophil (Seg) 2.83 k/uL Normal 1.50-8.10 [facility] Comment on above: Performed By: #### P T, CDP, TROPI, PTT, CP #### [place] [address] [employer] Worker: Tej Locke MD Basophils/100 WBC (Bld) 1 % Normal 0-2 [facility] Comment on above: Performed By: #### P T, CDP, TROPI, PTT, CP #### [place] [address] [employer] Worker: Tej Locke MD Eosinophils (Bld) [#/Vol] 0.20 10*3/uL Normal 0.00-0.44 [facility] Comment on above: Performed By: #### P T, CDP, TROPI, PTT, CP #### [address] [address] [employer] Worker: Tej Locke MD Eosinophils/100 WBC (Bld) 4 % Normal 1-4 [facility] Comment on above: Performed By: #### P T, CDP, TROPI, PTT, CP #### [address] [address] [employer] Worker: Tej Locke MD Erythrocyte distribution width (RBC) [Ratio] 12.9 % Normal 11.8-14.4 [facility] Comment on above: Performed By: #### P T, CDP, TROPI, PTT, CP #### [address] [address] [employer] Worker: Tej Locke MD Hematocrit (Bld) [Volume fraction] 38.4 % Normal 36.3-47.1 [facility] Comment on above: Performed By: #### P T, CDP, TROPI, PTT, CP #### [address] [address] [employer] Worker: Tej Locke MD Hemoglobin (Bld) [Mass/Vol] 12.0 g/dL Normal 11.9-15.1 [facility] Comment on above: Performed By: #### P T, CDP, TROPI, PTT, CP #### [address] [address] [employer] Worker: Tej Locke MD Immature granulocytes/100 WBC (Bld) 0 % Normal 0 [facility] Comment on above: Performed By: #### P T, CDP, TROPI, PTT, CP #### [place] [address] [employer] Worker: Tej Locke MD Lymphocytes (Bld) [#/Vol] 1.53 10*3/uL Normal 1.10-3.70 [facility] Comment on above: Performed By: #### P T, CDP, TROPI, PTT, CP #### [address] [address] [employer] Worker: Tej Locke MD Lymphocytes/100 WBC (Bld) 30 % Normal 24-43 [facility] Comment on above: Performed By: #### P T, CDP, TROPI, PTT, CP #### [address] [address] [employer] Worker: Tej Locke MD MCH (RBC) [Entitic mass] 32.3 pg Normal 25.2-33.5 [facility] Comment on above: Performed By: #### P T, CDP, TROPI, PTT, CP #### [address] [address] [employer] Worker: Tej Locke MD MCHC (RBC) [Mass/Vol] 31.3 g/dL Normal 28.4-34.8 [facility] Comment on above: Performed By: #### P T, CDP, TROPI, PTT, CP #### [place] [address] [employer] Worker: Tej Locke MD MCV (RBC) [Entitic vol] 103.5 fL High 82.6-102.9 M [facility] Comment on above: Performed By: #### P T, CDP, TROPI, PTT, CP #### [address] [address] [employer] Worker: Tej Locke MD Monocytes (Bld) [#/Vol] 0.51 10*3/uL Normal 0.10-1.20 [facility] Comment on above: Performed By: #### P T, CDP, TROPI, PTT, CP #### [address] [address] [employer] Worker: Tej Locke MD Monocytes/100 WBC (Bld) 10 % Normal 3-12 M [facility] Comment on above: Performed By: #### P T, CDP, TROPI, PTT, CP #### [address] [address] [employer] Worker: Tej Locke MD Neutrophil (Seg) 55 % Normal 36-65 [facility] Comment on above: Performed By: #### P T, CDP, TROPI, PTT, CP #### [address] [address] [employer] Worker: Tej Locke MD NRBC Automated 0.0 per 100 WBC Normal 0.0 [facility] Comment on above: Performed By: #### P T, CDP, TROPI, PTT, CP #### [address] [address] [employer] Worker: Tej Locke MD Platelet mean volume (Bld) [Entitic vol] 10.4 fL Normal 8.1-13.5 [facility] Comment on above: Performed By: #### P T, CDP, TROPI, PTT, CP #### [address] [address] [employer] Worker: Tej Locke MD Platelets (Bld) [#/Vol] 223 10*3/uL Normal 138-453 [facility] Comment on above: Performed By: #### P T, CDP, TROPI, PTT, CP #### [address] [address] [employer] Worker: Tej Locke MD RBC (Bld) [#/Vol] 3.71 10*6/uL Low 3.95-5.11 [facility] Comment on above: Performed By: #### P T, CDP, TROPI, PTT, CP #### [address] [address] [employer] Worker: Tej Locke MD RBC morphology finding Nom (Bld) MACROCYTOSIS PRESENT Normal [facility] Comment on above: Performed By: #### P T, CDP, TROPI, PTT, CP #### [address] [address] [employer] Worker: Tej Locke MD WBC (Bld) [#/Vol] 5.1 10*3/uL Normal 3.5-11.3 [facility] Comment on above: Performed By: #### P T, CDP, TROPI, PTT, CP #### [employer] [address] [place] [address] [employer] Worker: Tej Locke MD CT HEAD WO CONTRASTon [...] for review. This scan was analyzed using [employer] contact LVO. Identification of suspected findings is [...] Yandel Walters DO 04/23/24 Final result Normal [facility] CT Head WO contraston 2023 Radiology Study observation (narrative) Charly sanchez [facility] CTA HEAD NECK W CONTRASTon 1 06-23-2023 [...] for review. This scan was analyzed using [employer] contact LVO. Identification of suspected findings is [...] to a licensed caregiver, received by Dr. Pilali at 2:22 pm. Interpreted by: Yandel Walters DO Signed by: Yandel Walters DO 04/23/24 Final result Normal [facility] CTA Head vessels and Neck ve ssels W contrast Hayden 04-23-2024 Radiology Study observation (narrative) Charly sanchez [facility] Calcium, Ionic (POC)on 04-23 Calcium [Moles/Vol] 1.28 mmol/L Normal 1.15-1.33 [facility] Comp Metabolic Profon 2023 Albumin [Mass/Vol] 4.2 g/dL Normal 3.5-5.2 [facility] Comment on above: Performed By: #### P T, CDP, TROPI, PTT, CP #### [address] [address] [employer] Worker: Tej Locke MD Albumin/Glob Ratio 1.9 Normal 1.0-2.5 [facility] Comment on above: Performed By: #### P T, CDP, TROPI, PTT, CP #### [facility] [employer] [address] [place] [address] [employer] Worker: Tej Locke MD Alkaline Phos 116 U/L High 35-104 [facility] Comment on above: Performed By: #### P T, CDP, TROPI, PTT, CP #### [facility] [employer] [address] [place] [address] [employer] Worker: Tej Locke MD ALT [Catalytic activity/Vol] 19 U/L Normal 10-35 [facility] Comment on above: Performed By: #### P T, CDP, TROPI, PTT, CP #### [employer] [address] [place] [address] [employer] Worker: Tej Locke MD Anion gap [Moles/Vol] 9 mmol/L Normal 9-16 [facility] Comment on above: Performed By: #### P T, CDP, TROPI, PTT, CP #### [facility] [employer] [address] [place] [address] [employer] Worker: Tej Locke MD AST [Catalytic activity/Vol] 17 U/L Normal 10-35 [facility] Comment on above: Performed By: #### P T, CDP, TROPI, PTT, CP #### [address] [address] [employer] Worker: Tej Locke MD Bilirubin [Mass/Vol] mg/dL Normal 0.0-1.2 [facility] Comment on above: Performed By: #### P T, CDP, TROPI, PTT, CP #### [address] [address] [employer] Worker: Tej Locke MD Calcium [Mass/Vol] 9.6 mg/dL Normal 8.6-10.4 [facility] Comment on above: Performed By: #### P T, CDP, TROPI, PTT, CP #### [address] [address] [employer] Worker: Tej Locke MD Chloride [Moles/Vol] 109 mmol/L High 98-107 [facility] Comment on above: Performed By: #### P T, CDP, TROPI, PTT, CP #### [address] [address] [employer] Worker: Tej Locke MD CO2 [Moles/Vol] 22 mmol/L Normal 20-31 [facility] Comment on above: Performed By: #### P T, CDP, TROPI, PTT, CP #### [facility] [employer] [address] [place] [address] [employer] Worker: Tej Locke MD Creatinine [Mass/Vol] 1.5 mg/dL High 0.6-0.9 [facility] Comment on above: Performed By: #### P T, CDP, TROPI, PTT, CP #### [address] [address] [employer] Worker: Tej Locke MD GFR/1.73 sq M.predicted among non-blacks MDRD (S/P/Bld) [Vol rate/Area] 38 mL/min/{1.73_m2} Low >60 [facility] Comment on above: Result Comment: These [...] P T, CDP, TROPI, PTT, CP #### [facility] [address] [place] [address] [employer] Worker: Tej Locke MD Glucose [Mass/Vol] 106 mg/dL High 74-99 [facility] Comment on above: Performed By: #### P T, CDP, TROPI, PTT, CP #### [employer] [address] [place] [address] [employer] Worker: Tej Locke MD Potassium [Moles/Vol] 4.6 mmol/L Normal 3.7-5.3 [facility] Comment on above: Performed By: #### P T, CDP, TROPI, PTT, CP #### [employer] [address] [place] [address] [employer] Worker: Tej Locke MD Protein [Mass/Vol] 6.4 g/dL Low 6.6-8.7 [facility] Comment on above: Performed By: #### P T, CDP, TROPI, PTT, CP #### [employer] [address] [place] [address] [employer] Worker: Tej Locke MD Sodium [Moles/Vol] 140 mmol/L Normal 136-145 [facility] Comment on above: Performed By: #### P T, CDP, TROPI, PTT, CP #### [employer] [address] [place] [address] [employer] Worker: Tej Locke MD Urea nitrogen [Mass/Vol] 25 mg/dL High 8-23 [facility] Comment on above: Performed By: #### P T, CDP, TROPI, PTT, CP #### [facility] [address] [place], [place] [phone] [employer] Worker: Tej Locke MD Comprehensive Metabolic Pane [facility] 04-23-2024 Albumin [Mass/Vol] 4.2 g/dL 3.5 - 5.2 g/dL [facility] Albumin/Globulin [Mass ratio] 1.9 {ratio} 1.0 - 2.5 [facility] ALP [Catalytic activity/Vol] 116 U/L High 35 - 104 U/L [facility] ALT [Catalytic activity/Vol] 19 U/L 10 - 35 U/L [facility] Anion gap [Moles/Vol] 9 mmol/L 9 - 16 mmol/L [facility] AST [Catalytic activity/Vol] 17 U/L 10 - 35 U/L [facility] Bilirubin [Mass/Vol] mg/dL 0.0 - 1 .2 mg/dL [facility] Calcium [Mass/Vol] 9.6 mg/dL 8.6 - 10. 4 mg/dL [facility] Chloride [Moles/Vol] 109 mmol/L High 98 - 10 7 mmol/L [facility] CO2 [Moles/Vol] 22 mmol/L 20 - 31 mmol/L [facility] Creatinine [Mass/Vol] 1.5 mg/dL High 0.6 - 0.9 mg/dL [facility] Est, Glom Filt Rate 38 Low - PINF [facility] Comment on above: These results are not [...] 106 mg/dL High 74 - 99 mg/dL [facility] [employer] Potassium [Moles/Vol] 4.6 mmol/L 3.7 - 5.3 mmol/L [facility] [employer] Protein [Mass/Vol] 6.4 g/dL Low 6.6 - 8.7 g/dL [facility] Sodium [Moles/Vol] 140 mmol/L 136 - 145 mmol/L [facility] [employer] Urea nitrogen [Mass/Vol] 25 mg/dL High 8 - 23 mg/dL [facility] [employer] Creatinine W/GFR Point of Ca reon 04-23-2024 Creatinine [Mass/Vol] 1.3 mg/dL High 0.51 - 1.19 mg/dL [facility] [employer] eGFR, POC 45 Low - PINF [facility] Comment on above: These results [...] affects renal tubular secretion. Creatinine w/GFR, POCon 11- Creatinine [Mass/Vol] 1.3 mg/dL High 0.51-1.19 [facility] GFR/1.73 sq M.predicted among non-blacks MDRD (S/P/Bld) [Vol rate/Area] 45 mL/min/{1.73_m2} Low >60 [facility] Comment on above: Result Comment: These [...] [Moles/Vol] 14 mmol/L 7 - 16 mmol/L [facility] Chloride [Moles/Vol] 109 mmol/L High 98 - 10 7 mmol/L [facility] CO2 Calc (Bld) [Moles/Vol] 23 mmol/L 22 - 30 mmol/L [facility] Potassium [Moles/Vol] 4.6 mmol/L High 3.5 - 4.5 mmol/L [facility] Sodium [Moles/Vol] 145 mmol/L 138 - 146 mmol/L [facility] Electrolyteson 04-23-2024 Anion gap [Moles/Vol] 14 mmol/L Normal 7-[address] [facility] Chloride [Moles/Vol] 109 mmol/L High 98-107 [facility] CO2 [Moles/Vol] 23 mmol/L Normal 22-30 [facility] Potassium [Moles/Vol] 4.6 mmol/L High 3.5-4.[address] [facility] Sodium [Moles/Vol] 145 mmol/L Normal 138-146 [facility] Glucose (POC)on 04-23-2024 Glucose [Mass/Vol] 98 mg/dL Normal 74-100 [facility] Hemoglobin and hematocrit, b loodon 04-23-2024 Hematocrit (Bld) [Volume fraction] 37 % 36 - 46 % [facility] Hemoglobin (Bld) [Mass/Vol] 12.4 g/dL 12.0 - 16.0 g/dL [facility] Hgb/Hct, POCon 04-23-2024 Hematocrit (Bld) [Volume fraction] 37 % Normal 36-46 [facility] Hemoglobin (Bld) [Mass/Vol] 12.4 g/dL Normal 12.0-16.0 [facility] Lactic Acid (POC)on 04-23-20 24 Lactate [Moles/Vol] 1.0 mmol/L Normal 0.56-1.39 [facility] Lactic Acid, POCon 4 POC Lactic Acid 1.0 mmol/L 0.56 - 1.39 mmol/L [facility] MR Brain WO contraston 04-23 [...] The soft tissues demonstrate no acute abnormality. [facility] Yin Calderón MD - 04/23/2024 EXAMINATION: MRI OF THE [...] acute abnormality. IMPRESSION: No acute intracranial abnormality. [facility] Radiology Study observation (narrative) Charly sanchez [facility] MR Brain WO contrastOrdered By: Yin Calderón on 04-23-2024 [facility] Work Phone: MRI BRAIN WO [...] Yin Calderón MD 04/23/24 Final result Normal [facility] Microscopic Urinalysison Bacteria LM Ql (Urine sed) None None [facility] Casts LM.LPF (Urine sed) [#/Area] None Reference range defined for non-centrifuged specimen. [facility] Epithelial cells LM.HPF (Urine sed) [#/Area] 0 TO 2 [facility] RBC LM.HPF (Urine sed) [#/Area] None [facility] Comment on above: Reference range defi aggie for non-centrifuged specimen. WBC LM.HPF (Urine sed) [#/Area] 0 TO 2 [facility] No Panel Informationon 04-23 1. No acute [...] received by Dr. Pillai at 2:22 pm. [facility]SOL[facility] EXAMINATION: CTA OF THE HEAD [...] venous sinus thrombosis on this non-dedicated study. [facility] Yandel Walters DO - 04/23/2024 EXAMINATION: CTA OF THE HEAD [...] received by Dr. Pillai at 2:22 pm. [facility] Interpretation and review of laboratory results Abnormal [facility] [employer] [facility] Interpretation and review of laboratory results Abnormal [facility] No Panel InformationOrdered By: Yandel Walters on 04-23-2024 [facility] Work Phone: POCT Glucoseon 04-23-2024 Glucose [Mass/Vol] 98 mg/dL 74 - 100 mg/dL [facility] POCT urea (BUN)on 04-23-2024 Urea nitrogen [Mass/Vol] 25 mg/dL 8 - 26 mg/dL [facility] PTon 04-23-2024 INR Coag (PPP) [Relative time] 1.0 {INR} Normal [facility] Comment on above: Result Comment: Therapeutic Range: Moderate Anticoagulant Intensity: INR = 2.0-3.0 High Anticoagulant Intensity: INR = 2.5-3.5 Performed By: #### P T, CDP, TROPI, PTT, CP #### [facility] [employer] [address] [place] [phone] [employer] Worker: Tej Locke MD PT Coag (PPP) [Time] 13.5 s Normal 11.7-14.9 [facility] Comment on above: Performed By: #### P T, CDP, TROPI, PTT, CP #### [facility] [employer] [address] [place] [address] [employer] Worker: Tej Locke MD Portable XR Chest AP single viewon 04-23-2024 No acute process. [facility] CON[facility] EXAMINATION: ONE XRAY VIEW OF THE CHEST 04/23/2024 2:02 pm COMPARISON: 05/19/2016 HISTORY: ORDERING SYSTEM PROVIDED HISTORY: Concern for pneumonia TECHNOLOGIST PROVIDED HISTORY: Concern for pneumonia FINDINGS: The lungs are without acute focal process. There is no effusion or pneumothorax. The cardiomediastinal silhouette is stable. The osseous structures are stable. [facility] Khalif St MD - 04/23/2024 EXAMINATION: ONE XRAY VIEW OF THE CHEST 04/23/2024 2:02 pm COMPARISON: 05/19/2016 HISTORY: ORDERING SYSTEM PROVIDED HISTORY: Concern for pneumonia TECHNOLOGIST PROVIDED HISTORY: Concern for pneumonia FINDINGS: The lungs are without acute focal process. There is no effusion or pneumothorax. The cardiomediastinal silhouette is stable. The osseous structures are stable. IMPRESSION: No acute process. [facility] Radiology Study observation (narrative) [facility] Portable XR Chest AP single viewOrdered By: Khalif St on 04-23-2024 [facility] Work Phone: Protime-INRon 04-23-2024 INR Coag (PPP) [Relative time] 1.0 {INR} [facility] Comment on above: Therapeutic Range: Moderate Anticoagulant Intensity: INR = 2.0-3.0 High Anticoagulant Intensity: INR = 2.5-3.5 PT Coag (PPP) [Time] 13.5 s [facility] Troponinon 04-23-2024 Interpretation and review of laboratory results Abnormal [facility] Troponin I.cardiac High sensitivity method [Mass/Vol] 20 ng/L High 0 - 14 ng/L [facility] Comment on above: High Sensitivity Tro ponin values cannot be compared with other Troponin methodologies. [facility] Troponin, High Sens 20 ng/L High 0-14 [facility] Comment on above: Result Comment: High Sensitivity Troponin values cannot be compared with other Troponin methodologies. Performed By: #### T ROPI #### [facility] [employer] [address] [place] [address] [employer] Worker: Tej Locke MD Troponin I.cardiac High sensitivity method [Mass/Vol] 22 ng/L High 0 - 14 ng/L [facility] Comment on above: High Sensitivity Tro ponin values cannot be compared with other Troponin methodologies. Troponin, High Sens 22 ng/L High 0-14 [facility] Comment on above: Result Comment: High Sensitivity Troponin values cannot be compared with other Troponin methodologies. Performed By: #### P T, CDP, TROPI, PTT, CP #### [facility] [employer] [address] [place] [phone] [employer] Worker: Tej Locke MD UA w/Reflex Cultureon 2023 Bilirubin, SemiQt,Ur Negative Normal NEG [facility] Comment on above: Performed By: #### U AX, UMICAO ####[facility] [address] [place] [address] [phone] Lab Director: Tej Locke MD Blood, Urine Negative Normal NEG [facility] Comment on above: Performed By: #### U AX, UMICAO ####[facility] [address] [place], [place] [phone] Director: Tej Locke MD Clarity (U) Clear Normal CLEAR [facility] Comment on above: Performed By: #### U AX, UMICAO ####[facility] [address] [place], [place] [phone] Director: Tej Locke MD Color (U) Yellow Normal YEL [facility] Comment on above: Performed By: #### U AX, UMICAO ####[facility] [address] [place], [place] [phone] Director: Tej Locke MD Glucose Ql (U) Negative Normal NEG [facility] Comment on above: Performed By: #### U AX, UMICAO ####[facility] [address] [place], [place] [phone] Director: Tej Locke MD Ketones Ql (U) Negative Normal NEG [facility] Comment on above: Performed By: #### U AX, UMICAO ####[facility] [address] [place] [address] Lab Director: Tej Locke MD Leukocyte esterase Test strip Ql (U) TRACE Abnormal NEG [facility] Comment on above: Performed By: #### U AX, UMICAO ####[facility] [address] [place] [address] Lab Director: Tej Locke MD Nitrite,Ur Negative Normal NEG [facility] Comment on above: Performed By: #### U AX, UMICAO ####[facility] [address] [place] [address] Lab Director: Tej Locke MD PH,Ur 7.0 Normal 5.0-8.0 [facility] Comment on above: Performed By: #### U AX, UMICAO ####[facility] [address] [place] [address] Lab Director: Tej Locke MD Protein Ql (U) Negative Normal NEG [facility] Comment on above: Performed By: #### U AX, UMICAO ####[facility] [address] [place] [address] lab Director: Tej Locke MD Spec. [place],Ur 1.017 Normal 1.005-1.03 0 [facility] Comment on above: Performed By: #### U AX, UMICAO ####[facility] [address] [place] [address] lab Director: Tej Locke MD Urobilinogen,Ur Normal Normal 0.0-1.0 [facility] Comment on above: Performed By: #### U AX, UMICAO ####[facility] [address] [place] [address] Lab Director: Tej Locke MD Urinalysis with Reflex to Cu ltureon 04-23-2024 Bilirubin Ql (U) Negative NEGATIVE [facility] Clarity (U) Clear Clear [facility] Color (U) Yellow Yellow [facility] Glucose Test strip (U) [Mass/Vol] Negative NEGATIVE mg/dL [facility] Hemoglobin Auto test strip Ql (U) Negative NEGATIVE [facility] Interpretation and review of laboratory results Abnormal [facility] Ketones (U) [Mass/Vol] Negative NEGAT MATT mg/dL [facility] Leukocyte esterase Test strip Ql (U) TRACE Abnormal NEGATIVE [facility] Nitrite Ql (U) Negative NEGATIVE [place] [facility] pH (U) 7.0 [pH] 5.0 - 8.0 [facility] Protein (U) [Mass/Vol] Negative NEGAT MATT mg/dL [facility] Specific gravity (U) [Rel density] 1.017 1.005 - 1.030 [facility] Urobilinogen Qn (U) Normal 0.0 - 1. 0 EU/dL [facility] Urinalysis,Microon 4 Bacteria None Normal NONE [facility] Comment on above: Performed By: #### U AX, UMICAO ####[facility] [address] [place] [address] Lab Director: Tej Locke MD Casts None Normal 0-8 [facility] Comment on above: Result Comment: Refe rence range defined for non-centrifuged specimen. Performed By: #### U AX, UMICAO ####[facility] [address] [place], [place] [phone] Director: Tej Locke MD Epithelial cells LM Ql (Urine sed) 0 TO 2 Normal 0-5 [facility] Comment on above: Performed By: #### U AX, UMICAO ####[facility] [address] [place] [address] Lab Director: Tej Locke MD Urine RBC's None Normal 0-4 [facility] Comment on above: Result Comment: Refe rence range defined for non-centrifuged specimen. Performed By: #### U AX, UMICAO ####[facility] [address] [place] [address] Lab Director: Tej Locke MD Urine WBC's 0 TO 2 Normal 0-5 [facility] Comment on above: Performed By: #### U AX, UMICAO ####[facility] [address] [place] [address] Lab Director: Tej Locke MD Venous Bld Gas,POCon 024 HCO3 (Bld) [Moles/Vol] 23.4 mmol/L Normal 22.0-29.0 [facility] Negative Base Excess (calc) 1.9 mmol/L Normal 0.0-2.0 [facility] Oxygen saturation in Blood 26.7 % Low 60.0-85.0 [facility] pCO2, Venous 41.3 mm Hg Normal 41.0-51.0 [facility] pH,Venous 7.362 Normal 7.320-7.43 0 [facility] pO2, Venous 18.7 mm Hg Low 30.0-50.0 [facility] Venous Blood Gas, POCon 11- HCO3 (Bld) [Moles/Vol] 23.4 mmol/L 22.0 - 29.0 mmol/L [facility] Negative Base Excess, Mark 1.9 mmol/L 0.0 - 2.0 mmol/L [facility] Oxygen saturation in Blood 26.7 % Low 60.0 - 85.0 % [facility] pCO2, Mark 41.3 [facility] pH, Mark 7.362 7.320 - 7.430 [facility] PO2, Mark 18.7 Low [facility] XR CHEST PORTABLEon 04-23-20 XR [...] Khalif St MD 04/23/24 Final result Normal [facility] EMG 2 Extremitieson 02-25-20 L5 b/l mild [facility] NVC 9-10 Nerveson 02-25-2024 L5 b/l mild [facility] [place] [Moles/volume] in Se rum or PlasmaOrdered By: Joe Davis on 12-18-2023 [place] [Moles/Vol] 1.00 mmol/L Normal 0.60-1.20 [facility] Comment on above: Result Comment: PERF ORMED BY: [place] [address] PATHOLOGIST LOOM OPERATOR GATO PEÑA M.D. Performed By: #### L ITH #### [facility] [address] [place] [id number] [place] Cholesterol [Mass/volume] in Serum or PlasmaOrdered By: Joe Davis on 12-17-2023 Cholesterol [Mass/Vol] 133 mg/dL Low 140-200 [facility] Comment on above: Chol less than 200 m g/dl low riskChol 201-239 mg/dl borderline riskChol 240 mg/dl and greater high risk Result Comment: Chol less than 200 mg/dl low risk Chol 201-239 mg/dl borderline risk Chol 240 mg/dl and greater high risk Performed By: #### E LONNIE, CBC, CMP #### [facility] [address] [place] [phone] [facility] Cholesterol in LDL Calc [Mas s/Vol]Ordered By: Joe Davis on 12-17-2023 Cholesterol in LDL [Mass/Vol] 66 mg/dL 0-100 [facility] Comment on above: LDL ATP III CLASSIFI CATIONLDL less than 100 mg/dL OptimalLDL 100-129 mg/dL Near or above optimalLDL 130-159 mg/dL Borderline highLDL 160-189 mg/dL HighLDL greater than 189 mg/dL Very high Cholesterol in VLDL Calc [Ma ss/Vol]Ordered By: Joe Davis on 12-17-2023 Cholesterol in VLDL [Mass/Vol] 18 mg/dL [facility] ECG 12 lead ECGon 12-17-2023 ECG 12 lead ECG [facility] [address] [place] [address] [place] [address] Electrocardiograph Report Signed Patient: Gail Almeida MR#: [id number] : 1955 Acct:[id number] Age/Sex: 68 / F ADM Date: 12/16/23 Loc: Room: [address] [place] [address] Type: ADM IN Attending Dr: Joe Davis [...] of Septal leads Confirmed by RACHEL HUNG FACCMEMO ([id number]) on 12/17/2023 4:48:59 PM Referred By: Electronically Signed By: MEMO CRAWFORD MD FACC Transcribed By: MUS Signed By Dayday Crawford MD 12/17/23 1649 Normal [facility] Lipid Panelon 12-17-2023 LDL Cholesterol,Calculated 66 mg/dL Normal 0-100 [facility] Comment on above: Result Comment: LDL ATP III CLASSIFICATION LDL less than 100 mg/dL Optimal LDL 100-129 mg/dL Near or above optimal LDL 130-159 mg/dL Borderline high LDL 160-189 mg/dL High LDL greater than 189 mg/dL Very high Performed By: #### E HEDY FLEMING, CMP #### [facility] [address] Triglyceride w/Reflex 94 mg/dL Normal 0-149 [facility] Comment on above: Result Comment: TRIG ATP III CLASSIFICATION TRIG less than 150 mg/dL Normal TRIG 150-199 mg/dL Borderline high TRIG 200-500 mg/dL High TRIG greater than 500 mg/dL Very high Standard traceable to the Center for Disease Conrtrol and Prevention (CDC) test method. Performed By: #### E LONNIE CBC, CMP #### [facility] [address] [place] [phone] [facility] VLDL CHOLESTEROL 18 mg/dL Normal [facility] Comment on above: Performed By: #### E LONNIE CBC, CMP #### [facility] [address] [place] [address] Serum or plasma high density lipoprotein (HDL) cholesterol measurementOrdered By: Joe Davis on 12-17-2023 Cholesterol in HDL [Mass/Vol] 48 mg/dL Normal 23-92 [facility] Comment on above: HDL CHOL ATP-III CLA SSIFICATION Cardiovascular RiskHDL > or equal to 60 mg/dL LOWHDL < 40 mg/dL HIGH Result Comment: HDL CHOL ATP-III CLASSIFICATION Cardiovascular Risk HDL > or equal to 60 mg/dL LOW HDL < 40 mg/dL HIGH Performed By: #### E HEDY FLEMING, CMP #### [address] Serum or plasma total choles terol/high density lipoprotein (HDL) cholesterol mass ratOrdered By: Joe Davis on 12-17-2023 Cholesterol.total/Judy sterol in HDL [Mass ratio] 2.8 {ratio} Normal <5.0 [facility] Comment on above: Performed By: #### E HEDY FLEMING, CMP #### [address] Thyroid Stim Hormone w/Rflxo n 12-17-2023 Thyroid Stim Hormone w/Rflx 0.27 u[iU]/mL Low 0.45-5.33 [facility] Comment on above: Performed By: #### E HEDY FLEMING, CMP #### [address] Thyrotropin [Units/volume] i n Serum or PlasmaOrdered By: Joe Davis on 12-17-2023 TSH Qn 0.27 m[IU]/L Low 0.45-5.33 [facility] Thyroxine (T4) free [Mass/vo lume] in Serum or PlasmaOrdered By: Joe Davis on 12-17-2023 Free T4 [Mass/Vol] 0.79 ng/dL Normal 0.61-1.12 [facility] Comment on above: Performed By: #### E HEDY FLEMING, CMP #### [address] [address] [facility] Triglyceride [Mass/volume] i n Serum or PlasmaOrdered By: Joe Davis on 12-17-2023 Triglyceride [Mass/Vol] 94 mg/dL 0-149 [facility] Comment on above: TRIG ATP III CLASSIF ICATIONTRIG less than 150 mg/dL NormalTRIG 150-199 mg/dL Borderline highTRIG 200-500 mg/dL High TRIG greater than 500 mg/dL Very highStandard traceable to the Center for Disease Conrtrol and Prevention (CDC) test method. Vitamin D 25 Hydroxy Totalon 12-17-2023 Vitamin D 25 Hydroxy Total 26.0 ng/mL Low 30-100 [facility] Comment on above: Result Comment: EDUARDO MIN D STATUS 25(OH)VITAMIN D RANGE (ng/mL) Deficient <20 Insufficient 20 to <30 Sufficient 30 to 100 Reference: Renée Woodward, Francisco CARPIO, et al. Evaluation,treatment, and prevention of vitamin D deficiency; an Endocrine Society clinical practice guideline. JCEM. 2010; 96(7):1911-30. PERFORMED BY: [place] [address] PATHOLOGIST LOOM OPERATOR GATO PEÑA M.D. Performed By: #### E LONNIE, CBC, CMP #### [address] Vitamin D+Metabolites [Mass/ volume] in Serum or PlasmaOrdered By: Joe Davis on 12-17-2023 Vitamin D+Metabolites [Mass/Vol] 26.0 ng/mL Low 30-100 [facility] Comment on above: VITAMIN D STATUS [...] ALT [Catalytic activity/Vol] 14 U/L Normal 7-52 [facility] Comment on above: Performed By: #### E LONNIE, CBC, CMP #### [facility] [address] [place] [address] Albumin [Mass/volume] in Ser um or Plasma by Bromocresol green (BCG) dye binding methoOrdered By: Juve Spears on 12-16-2023 Albumin BCG dye [Mass/Vol] 4.1 g/dL 3.5-5.7 [facility] Alkaline phosphatase [Enzyma tic activity/volume] in Serum or PlasmaOrdered By: Juve Spears on 12-16-2023 ALP [Catalytic activity/Vol] 101 U/L Normal 34-104 [facility] Comment on above: Performed By: #### E LONNIE, CBC, CMP #### [address] Amphetamine Screen Ql (U)Ord ered By: Juve Spears on 12-16-2023 Amphetamines Ql (U) Negative Negative [facility] Aspartate aminotransferase [ Enzymatic activity/volume] in Serum or PlasmaOrdered By: Juve Spears on 12-16-2023 AST [Catalytic activity/Vol] 16 U/L Normal 13-39 [facility] Comment on above: Performed By: #### E LONNIE, CBC, CMP #### [facility] [address] [place] [address] Automated basophil %Ordered By: Juve Spears on 12-16-2023 Basophils/100 WBC (Bld) 0.9 % Normal . [facility] Comment on above: Performed By: #### E LONNIE, CBC, CMP #### [facility] [address] [place] [address] Automated basophil countOrde red By: Juve Spears on 12-16-2023 Basophils (Bld) [#/Vol] 0.1 10*3/uL Normal 0.0-0.2 [facility] Comment on above: Result Comment: PERF ORMED BY: [place] [address] PATHOLOGIST LOOM OPERATOR GATO PEÑA M.D. Performed By: #### E LONNIE, CBC, CMP #### [address] Automated blood monocyte cou ntOrdered By: Juve Spears on 12-16-2023 Monocytes (Bld) [#/Vol] 0.5 10*3/uL Normal 0.0-0.8 [facility] Comment on above: Performed By: #### E OLNNIE, CBC, CMP #### [address] Automated eosinophil %Ordere d By: Juve Spears on 12-16-2023 Eosinophils/100 WBC (Bld) 3.9 % Normal . [facility] Comment on above: Performed By: #### E LONNIE, CBC, CMP #### [address] Automated eosinophil countOr dered By: Juve Spears on 12-16-2023 Eosinophils (Bld) [#/Vol] 0.2 10*3/uL Normal 0.0-0.45 [facility] Comment on above: Performed By: #### E LONNIE, CBC, CMP #### [address] Automated monocyte %Ordered By: Juve Spears on 12-16-2023 Monocytes/100 WBC (Bld) 7.5 % Normal . [facility] Comment on above: Performed By: #### E LONNIE, CBC, CMP #### [address] Automated neutrophil %Ordere d By: Juve Spears on 12-16-2023 Neutrophils/100 WBC (Bld) 62.8 % Normal . [facility] Comment on above: Performed By: #### E LONNIE, CBC, CMP #### [address] Barbiturates [Presence] in U rine by Screen methodOrdered By: Juve Spears on 12-16-2023 Barbiturates Screen Ql (U) Negative Negative [facility] Benzodiazepines Screen Ql (U )Ordered By: Juve Spears on 12-16-2023 Benzodiazepines Ql (U) Negative Negative [facility] Benzoylecgonine [Presence] i n Urine by Screen methodOrdered By: Juve Spears on 12-16-2023 Benzoylecgonine Screen Ql (U) Negative Negative [facility] Bilirubin Test strip Ql (U)O rdered By: Juve Spears on 12-16-2023 Bilirubin Ql (U) Negative Negative [facility] Bilirubin.total [Mass/volume ] in Serum or PlasmaOrdered By: Juve Spears on 12-16-2023 Bilirubin [Mass/Vol] 0.3 mg/dL Normal 0.3-1.0 [facility] Comment on above: Performed By: #### E LONNIE, CBC, CMP #### [facility] [address] [place] [address] [place] Calcium [Mass/volume] in Ser um or PlasmaOrdered By: Juve Spears on 12-16-2023 Calcium [Mass/Vol] 9.8 mg/dL Normal 8.6-10.3 [facility] Comment on above: Performed By: #### E LONNIE, CBC, CMP #### [facility] [address] [place] [address] [place] Cannabinoids [Presence] in U rine by Screen methodOrdered By: Juve Spears on 12-16-2023 Cannabinoids Screen Ql (U) Negative Negative [facility] Comment on above: These are unconfirme d results and should not be used for legal purposes. Drug Cut-Off Concentration: AMPH 1000 ng/mL PJ 200 ng/mL BETSY 200 ng/mL COCM 300 ng/mL OP 300 ng/mL PCP 25 ng/mL THC 20 ng/mL Carbon dioxide, total [Moles /volume] in Serum or PlasmaOrdered By: Juve Spears on 12-16-2023 CO2 [Moles/Vol] 22.9 mmol/L Normal 21.0-31.0 [facility] Comment on above: Performed By: #### E LONNIE, CBC, CMP #### [facility] [address] [place] [address] [place] Chloride [Moles/volume] in S kishan or PlasmaOrdered By: Juve Spears on 12-16-2023 Chloride [Moles/Vol] 110 mmol/L High 98-107 [facility] Comment on above: Performed By: #### E LONNIE, CBC, CMP #### [address] Color of Urine by AutoOrdere d By: Juve Spears on 12-16-2023 Color (U) Colorless Normal Yellow [facility] Comment on above: Order Comment: Name Collection Type:: Clean-Voided Midstream Performed By: #### E LONNIE, CBC, CMP #### [address] Complete Blood Count Auto Di ffon 12-16-2023 Mean Corpuscular HGB Conc 33.6 g/dL Normal 32.0-35.0 [facility] Comment on above: Performed By: #### E LONNIE, CBC, CMP #### [address] Monocytes/100 WBC (Bld) 17.55 % Normal 0.00-20.00 [facility] Comment on above: Performed By: #### E LONNIE, CBC, CMP #### [address] NRBC% 0.1 /100{WBC} Normal 0-0.5 [facility] Comment on above: Performed By: #### E LONNIE, CBC, CMP #### [address] Comprehensive Metabolic Pane eusebia 12-16-2023 Albumin [Mass/Vol] 4.1 g/dL Normal 3.5-5.7 [facility] Comment on above: Performed By: #### E LONNIE, CBC, CMP #### [place] [address] [place] Creatinine Clr Calc Pharmacy 32.44 Normal [facility] Comment on above: Result Comment: PERF ORMED BY: [place] [address] PATHOLOGIST LOOM OPERATOR GATO PEÑA M.D. Performed By: #### E LONNIE, CBC, CMP #### [address] GFR/1.73 sq M.predicted MDRD (S/P/Bld) [Vol rate/Area] 37.657 mL/min/{1.73_m2} Normal [facility] Comment on above: Performed By: #### E LONNIE CBC, CMP #### [address] Creatinine [Mass/volume] in Serum or PlasmaOrdered By: Juve Spears on 12-16-2023 Creatinine [Mass/Vol] 1.51 mg/dL High 0.60-1.20 [facility] Comment on above: Performed By: #### E HEDY FLEMING, CMP #### [address] Drug Screen,Urineon 12-16-19 24 Amphetamine Screen,Urine Negative Normal Negative [facility] Comment on above: Performed By: #### E LONNIE CBC, CMP #### [address] Barbiturate Screen,Urine Negative Normal Negative [facility] Comment on above: Performed By: #### E HEDY FLEMING, CMP #### [address] Benzodiazepines Screen,Urine Negative Normal Negative [facility] Comment on above: Performed By: #### E HEDY FLEMING, CMP #### [address] Cannabinoid Screen,Urine Negative Normal Negative [facility] Comment on above: Result Comment: Thes e are unconfirmed results and should not be used for legal purposes. Drug Cut-Off Concentration: AMPH 1000 ng/mL PJ 200 ng/mL BETSY 200 ng/mL COCM 300 ng/mL OP 300 ng/mL PCP 25 ng/mL THC 20 ng/mL PERFORMED BY: [place] [address] PATHOLOGIST LOOM OPERATOR GATO PEÑA M.D. Performed By: #### E LONNIE CBC, CMP #### [facility] [address] Cocaine Screen,Urine Negative Normal Negative [facility] Comment on above: Performed By: #### E LONNIE CBC, CMP #### [address] Opiate Screen,Urine Negative Normal Negative [facility] Comment on above: Performed By: #### E LONNIE CBC, CMP #### [address] Phencyclidine Screen,Urine Negative Normal Negative [facility] Comment on above: Performed By: #### E LONNIE CBC, CMP #### [address] Erythrocyte distribution wid th [Ratio] by Automated countOrdered By: Juve Spears on 12-16-2023 Erythrocyte distribution width (RBC) [Ratio] 14.6 % Normal 11.9-15.3 [facility] Comment on above: Performed By: #### E LONNIE CBC, CMP #### [address] Erythrocytes [#/volume] in B lood by Automated countOrdered By: Juve Spears on 12-16-2023 RBC (Bld) [#/Vol] 3.85 10*6/uL Normal 3.60-5.00 [facility] Comment on above: Performed By: #### E LONNIE CBC, CMP #### [address] Ethanol [Mass/volume] in Ser um or PlasmaOrdered By: Juve Spears on 12-16-2023 Ethanol [Mass/Vol] mg/dL Normal [facility] Comment on above: Performed By: #### E LONNIE CBC, CMP #### [address] Ethanol [Mass/Vol] TNP [facility] Comment on above: Test not performed Ethyl Alcohol Profileon 12-01 Percent Ethanol Not performed Normal [facility] Comment on above: Result Comment: PERF ORMED BY: [place] [address] PATHOLOGIST LOOM OPERATOR GATO PEÑA M.D. Performed By: #### E LONNIE CBC, CMP #### [address] Glucose [Mass/volume] in Ser um or PlasmaOrdered By: Juve Spears on 12-16-2023 Glucose [Mass/Vol] 138 mg/dL High 70-100 [facility] Comment on above: ADA recommended refe rence rangeRandom Glucose Reference Range is dependent on time and content of last meal. Glucose of more than 200 mg/dL in a nonstressed, ambulatory subject supports the diagnosis of Diabetes Mellitus. Result Comment: Desmet om Glucose Reference Range is dependent on time and content of last meal. Glucose of more than 200 mg/dL in a nonstressed, ambulatory subject supports the diagnosis of Diabetes Mellitus. ADA recommended reference range Performed By: #### E LONNIE CBC, CMP #### [address] Glucose [Mass/volume] in Uri ne by Test stripOrdered By: Juve Spears on 12-16-2023 Glucose Test strip (U) [Mass/Vol] Normal mg/dL Normal [facility] Hematocrit [Volume Fraction] of Blood by Automated countOrdered By: Juve Speasr on 12-16-2023 Hematocrit (Bld) [Volume fraction] 36.4 % Normal 34.0-46.4 [facility] Comment on above: Performed By: #### E LONNIE CBC, CMP #### [place] [id number] [place] Hemoglobin Test strip Ql (U) Ordered By: Juve Spears on 12-16-2023 Hemoglobin Ql (U) Negative Negative [facility] Hemoglobin [Mass/volume] in BloodOrdered By: Juve Spears on 12-16-2023 Hemoglobin (Bld) [Mass/Vol] 12.2 g/dL Normal 11.8-15.4 [facility] Comment on above: Performed By: #### E LONNIE CBC, CMP #### [address] [address] [place] Ketones [Presence] in Urine by Test stripOrdered By: Juve Spears on 12-16-2023 Ketones Ql (U) Negative Normal Negative [facility] Comment on above: Order Comment: Name Collection Type:: Clean-Voided Midstream Performed By: #### E LONNIE, CBC, CMP #### [facility] [address] [place] [address] [place] Leukocyte esterase [Presence ] in Urine by Test stripOrdered By: Juve Spears on 12-16-2023 Leukocyte esterase Test strip Ql (U) Negative Normal Negative [facility] Comment on above: Order Comment: Name Collection Type:: Clean-Voided Midstream Performed By: #### E LONNIE, CBC, CMP #### [facility] [address] [place] [address] [place] Leukocytes [#/volume] correc cornelia for nucleated erythrocytes in Blood by Automated counOrdered By: Juve Spears on 12-16-2023 WBC corrected for nucl RBC Auto (Bld) [#/Vol] 6.3 10*3/uL 3.8-11.6 [facility] Leukocytes [#/volume] in Blo od by Automated countOrdered By: Juev Spears on 12-16-2023 WBC (Bld) [#/Vol] 6.3 10*3/uL Normal 3.8-11.6 [facility] Comment on above: Performed By: #### E LONNIE, CBC, CMP #### [facility] [address] [place] [address] [place] Lymphocytes [#/volume] in Bl ood by Automated countOrdered By: Juve Spears on 12-16-2023 Lymphocytes (Bld) [#/Vol] 1.6 10*3/uL Normal 1.00-4.8 [facility] Comment on above: Performed By: #### E LONNIE, CBC, CMP #### [facility] [address] [place] [address] [place] Lymphocytes/100 leukocytes i n Blood by Automated countOrdered By: Juve Spears on 12-16-2023 Lymphocytes/100 WBC (Bld) 24.9 % Normal . [facility] Comment on above: Performed By: #### E LONNIE, CBC, CMP #### [facility] [address] MCH [Entitic mass] by Automa cornelia countOrdered By: Juve Spears on 12-16-2023 MCH (RBC) [Entitic mass] 31.7 pg Normal 24.7-34.3 [facility] Comment on above: Performed By: #### E LONNIE, CBC, CMP #### [facility] [address] MCHC Auto (RBC) [Mass/Vol]Or dered By: Juve Spears on 12-16-2023 MCHC (RBC) [Mass/Vol] 33.6 g/dL 32.0-35.0 [facility] MCV [Entitic volume] by Auto mated countOrdered By: Juve Spears on 12-16-2023 MCV (RBC) [Entitic vol] 94.5 fL Normal 80-100 [facility] Comment on above: Performed By: #### E LONNIE, CBC, CMP #### [facility] [address] [place] [address] Monocyte distribution width [Entitic volume] in Blood by AutomatedOrdered By: Juve Spears on 12-16-2023 Monocyte distribution width Auto (Bld) [Entitic vol] 17.55 % 0.00-20.00 [facility] Neutrophils [#/volume] in Bl ood by Automated countOrdered By: Juve Spears on 12-16-2023 Neutrophils (Bld) [#/Vol] 4.0 10*3/uL Normal 1.8-7.7 [facility] Comment on above: Performed By: #### E LONNIE, CBC, CMP #### [facility] [address] [place] [address] Nitrite Test strip Ql (U)Ord ered By: Juve Spears on 12-16-2023 Nitrite Ql (U) Negative Negative [facility] No Panel InformationOrdered By: Juve Spears on 12-16-2023 Estimated GFR (CKD-EPI) 37.657 mL/Min [facility] Creatinine Clearance (Chem 32.44 [facility] Nucleated erythrocytes [Pres ence] in Blood by Automated countOrdered By: Juve Spears on 12-16-2023 Nucleated RBC Auto Ql (Bld) 0.1 /100{WBC} 0-0.5 [facility] Opiates [Presence] in Urine by Screen methodOrdered By: Juve Spears on 12-16-2023 Opiates Screen Ql (U) Negative Negative [facility] Phencyclidine Screen Ql (U)O rdered By: Juve Spears on 12-16-2023 Phencyclidine Ql (U) Negative Negative [facility] Platelet mean volume [Entiti c volume] in Blood by Automated countOrdered By: Juve Spears on 12-16-2023 Platelet mean volume (Bld) [Entitic vol] 8.4 fL Normal 6.3-10.7 [facility] Comment on above: Performed By: #### E LONNIE, CBC, CMP #### [facility] [address] [place] [address] [place] Platelets [#/volume] in Bloo d by Automated countOrdered By: Juve Spears on 12-16-2023 Platelets (Bld) [#/Vol] 229 10*3/uL Normal 150-450 [facility] Comment on above: Performed By: #### E LONNIE, CBC, CMP #### [facility] [address] [place] [address] [place] Potassium [Moles/volume] in Serum or PlasmaOrdered By: Juve Spears on 12-16-2023 Potassium [Moles/Vol] 3.8 mmol/L Normal 3.5-5.1 [facility] Comment on above: Performed By: #### E LONNIE, CBC, CMP #### [facility] [address] [place] [address] [place] Protein Test strip (U) [Mass /Vol]Ordered By: Juve Spears on 12-16-2023 Protein (U) [Mass/Vol] Negative Negative [facility] Protein [Mass/volume] in Ser um or PlasmaOrdered By: Juve Spears on 12-16-2023 Protein [Mass/Vol] 6.6 g/dL Normal 6.4-8.9 [facility] Comment on above: Performed By: #### E HEDY FLEMING, CMP #### [facility] [address] [place] [address] Serum globulin measurement b y calculation (mass/volume)Ordered By: Juve Spears on 12-16-2023 Globulin (S) [Mass/Vol] 2.5 g/dL Normal [facility] Comment on above: Performed By: #### E HEDY FLEMING, CMP #### [address] Serum or plasma albumin/glob ulin mass ratioOrdered By: Juve Spears on 12-16-2023 Albumin/Globulin [Mass ratio] 1.6 {ratio} Normal [facility] Comment on above: Performed By: #### E HEDY FLEMING, CMP #### [address] Serum or plasma anion gap de terminationOrdered By: Juve Spears on 12-16-2023 Anion gap [Moles/Vol] 9.9 mmol/L Normal 6.0-15.0 [facility] Comment on above: Performed By: #### E HEDY FLEMING, CMP #### [address] Sodium [Moles/volume] in Ser um or PlasmaOrdered By: Juve Spears on 12-16-2023 Sodium [Moles/Vol] 139 mmol/L Normal 136-145 [facility] Comment on above: Performed By: #### E HEDY FLEMING, CMP #### [address] Specific gravity Test strip (U) [Rel density]Ordered By: Juve Spears on 12-16-2023 Specific gravity (U) [Rel density] 1.005 1.001-1.03 0 [facility] Urea nitrogen [Mass/volume] in Serum or PlasmaOrdered By: Juve Spears on 12-16-2023 Urea nitrogen [Mass/Vol] 26 mg/dL High 7-25 [facility] Comment on above: Performed By: #### E HEDY FLEMING, CMP #### [place] [address] [place] [address] [place] Urinalysison 12-16-2023 Bilirubin,Urine Negative Normal Negative [facility] Comment on above: Order Comment: Name Collection Type:: Clean-Voided Midstream Performed By: #### E LONNIE, CBC, CMP #### [address] Glucose Ql (U) Normal Normal Normal [facility] Comment on above: Order Comment: Name Collection Type:: Clean-Voided Midstream Performed By: #### E LONNIE, CBC, CMP #### [place] [address] [place] Nitrite,Urine Negative Normal Negative [facility] Comment on above: Order Comment: Name Collection Type:: Clean-Voided Midstream Performed By: #### E LONNIE, CBC, CMP #### [place] [address] [place] Occult Blood,Urine Negative Normal Negative [facility] Comment on above: Order Comment: Name Collection Type:: Clean-Voided Midstream Result Comment: PERF ORMED BY: [place] [address] PATHOLOGIST LOOM OPERATOR GATO PEÑA M.D. Performed By: #### E LONNIE, CBC, CMP #### [address] Protein,Urine Negative Normal Negative [facility] Comment on above: Order Comment: Name Collection Type:: Clean-Voided Midstream Performed By: #### E LONNIE, CBC, CMP #### [place] [address] [place] Specificy [place],Urine 1.005 Normal 1.00 1-1.03 0 [facility] Comment on above: Order Comment: Name Collection Type:: Clean-Voided Midstream Performed By: #### E LONNIE, CBC, CMP #### [place] [address] [place] Urobilinogen,Urine Normal Normal Normal [facility] Comment on above: Order Comment: Name Collection Type:: Clean-Voided Midstream Performed By: #### E HEDY FLEMING, CMP #### [facility] [address] [place] [address] Urine appearanceOrdered By: Juve Spears on 12-16-2023 Appearance (U) Clear Normal Clear [facility] Comment on above: Order Comment: Name Collection Type:: Clean-Voided Midstream Performed By: #### E LONNIE CBC, CMP #### [facility] [address] [place] [address] Urobilinogen Test strip (U) [Mass/Vol]Ordered By: Juve Spears on 12-16-2023 Urobilinogen (U) [Mass/Vol] Normal mg/dL Normal [facility] pH of Urine by Test stripOrd ered By: Juve Spears on 12-16-2023 pH (U) 7.0 [pH] Normal 5.0-9.0 [facility] Comment on above: Order Comment: Name Collection Type:: Clean-Voided Midstream Performed By: #### E HEDY FLEMING, CMP #### [facility] [address] [place] [address] CNOVon 09-27-2023 CNOV Office Visit (OTOLMN ) -------- GAIL ALMEIDA ([id number]) 1955 F Date Time Provider Department 09/27/23 9:45 AM YANDEL DANEIL During your visit today, we recorded the following information about you: Yandel Daniel MD 09/28/2023 1:37 PM Signed Gail Almeida [id number] September 27, 2023 [facility] Note [...] by mouth every 12 hours as needed. pbdmcx-cwsskptf-hmogymc (ENZADYNE) 9,000-112,500- 112,500 unit capsule Take 1 [...] the history and physical exam of Gail Blackburn Angela (more content not included)... Normal [facility] Basic Metabolic Panelon 08-01 Creatinine Clr Calc Pharmacy 37.44 Normal [facility] Comment on above: Order Comment: Comme nt Prior to surgery on 08/19 Result Comment: PERF ORMED BY: [place] [address] PATHOLOGIST LOOM OPERATOR GATO PEÑA M.D. Performed By: #### E LONNIE, CBC, CMP #### [place] [address] [place] GFR/1.73 sq M.predicted MDRD (S/P/Bld) [Vol rate/Area] 42.961 mL/min/{1.73_m2} Normal [facility] Comment on above: Order Comment: Comme nt Prior to surgery on 08/19 Performed By: #### E LONNIE CBC, CMP #### [facility] [address] [place] [address] [place] Calcium [Mass/volume] in Ser um or PlasmaOrdered By: Lucy Carolina on 08-20-2023 Calcium [Mass/Vol] 9.7 mg/dL Normal 8.6-10.3 [facility] Comment on above: Order Comment: Comme nt Prior to surgery on 08/19 Performed By: #### E LONNIE CBC, CMP #### [facility] [address] [place] [address] [place] Carbon dioxide, total [Moles /volume] in Serum or PlasmaOrdered By: Lucy Carolina on 08-20-2023 CO2 [Moles/Vol] 22.2 mmol/L Normal 21.0-31.0 [facility] Comment on above: Order Comment: Comme nt Prior to surgery on 08/19 Performed By: #### E LONNIE, CBC, CMP #### [facility] [address] [place] [id number] [place] Chloride [Moles/volume] in S kishan or PlasmaOrdered By: Lucy Carolina on 08-20-2023 Chloride [Moles/Vol] 112 mmol/L High 98-107 [facility] Comment on above: Order Comment: Comme nt Prior to surgery on 08/19 Performed By: #### E HEDY FLEMING, CMP #### [facility] [address] Creatinine [Mass/volume] in Serum or PlasmaOrdered By: Lucy Carolina on 08-20-2023 Creatinine [Mass/Vol] 1.36 mg/dL High 0.60-1.20 [facility] Comment on above: Order Comment: Comme nt Prior to surgery on 08/19 Performed By: #### E HEDY FLEMING, CMP #### [facility] [address] Glucose [Mass/volume] in Ser um or PlasmaOrdered By: Lucy Carolina on 08-20-2023 Glucose [Mass/Vol] 98 mg/dL Normal 70-100 [facility] Comment on above: ADA recommended refe rence rangeRandom Glucose Reference Range is dependent on time and content of last meal. Glucose of more than 200 mg/dL in a nonstressed, ambulatory subject supports the diagnosis of Diabetes Mellitus. Order Comment: Comme nt Prior to surgery on 08/19 Result Comment: Desmet om Glucose Reference Range is dependent on time and content of last meal. Glucose of more than 200 mg/dL in a nonstressed, ambulatory subject supports the diagnosis of Diabetes Mellitus. ADA recommended reference range Performed By: #### E HEDY FLEMING, CMP #### [facility] [address] No Panel InformationOrdered By: Lucy Carolina on 08-20-2023 Estimated GFR (CKD-EPI) 42.961 mL/Min [facility] Creatinine Clearance (Chem 37.44 [facility] Potassium [Moles/volume] in Serum or PlasmaOrdered By: Lucy Carolina on 08-20-2023 Potassium [Moles/Vol] 4.5 mmol/L Normal 3.5-5.1 [facility] Comment on above: Order Comment: Comme nt Prior to surgery on 08/19 Performed By: #### E LONNIE, CBC, CMP #### [facility] [address] [place] [address] [place] Serum or plasma anion gap de terminationOrdered By: Lucy Carolina on 08-20-2023 Anion gap [Moles/Vol] 12.3 mmol/L Normal 6.0-15.0 [facility] Comment on above: Order Comment: Comme nt Prior to surgery on 08/19 Performed By: #### E LONNIE CBC, CMP #### [facility] [address] [place] [address] [place] Sodium [Moles/volume] in Ser um or PlasmaOrdered By: Lucy Carolina on 08-20-2023 Sodium [Moles/Vol] 142 mmol/L Normal 136-145 [facility] Comment on above: Order Comment: Comme nt Prior to surgery on 08/19 Performed By: #### E LONNIE CBC, CMP #### [facility] [address] [place] [address] [place] Urea nitrogen [Mass/volume] in Serum or PlasmaOrdered By: Lucy Carolina on 08-20-2023 Urea nitrogen [Mass/Vol] 39 mg/dL High 7-25 [facility] Comment on above: Order Comment: Comme nt Prior to surgery on 08/19 Performed By: #### E LONNIE CBC, CMP #### [facility] [address] [place] [address] [place] Cholesterol [Mass/volume] in Serum or PlasmaOrdered By: Joe Davis on 08-16-2023 Cholesterol [Mass/Vol] 150 mg/dL Normal 140-200 [facility] Comment on above: Chol less than 200 m g/dl low riskChol 201-239 mg/dl borderline riskChol 240 mg/dl and greater high risk Result Comment: Chol less than 200 mg/dl low risk Chol 201-239 mg/dl borderline risk Chol 240 mg/dl and greater high risk Performed By: #### T 4F, [id number], TSH3 wRFLX, LIPID #### [facility] [address] [place] [address] [place] Cholesterol in LDL Calc [Mas s/Vol]Ordered By: Joe Davis on 08-16-2023 Cholesterol in LDL [Mass/Vol] 74 mg/dL 0-100 [facility] Comment on above: LDL ATP III CLASSIFI CATIONLDL less than 100 mg/dL OptimalLDL 100-129 mg/dL Near or above optimalLDL 130-159 mg/dL Borderline highLDL 160-189 mg/dL HighLDL greater than 189 mg/dL Very high Cholesterol in VLDL Calc [Ma ss/Vol]Ordered By: Joe Davis on 08-16-2023 Cholesterol in VLDL [Mass/Vol] 11 mg/dL [facility] ECG 12 lead ECGon 08-16-2023 ECG 12 lead ECG [facility] Main [place] [address] [place] [address] Electrocardiograph Report Signed Patient: Gail Almeida MR#: [id number] : 1955 Acct:[id number] Age/Sex: 67 / F ADM Date: 08/15/23 Loc: Room: [address] [place] [address] Type: ADM IN Attending Dr: Joe Davis MD Ordering Provider: Joe Davis MD Date of Service: 08/16/23 ECG/ECG 12 lead ECG: baseline for Flat.to meds Copies to: Test Reason : Blood [...] 0 08/16/23 1438 Normal [facility] Lipid Panelon 08-16-2023 LDL Cholesterol,Calculated 74 mg/dL Normal 0-100 [facility] Comment on above: Result Comment: LDL ATP III CLASSIFICATION LDL less than 100 mg/dL Optimal LDL 100-129 mg/dL Near or above optimal LDL 130-159 mg/dL Borderline high LDL 160-189 mg/dL High LDL greater than 189 mg/dL Very high Performed By: #### T 4F, [id number], TSH3 wRFLX, LIPID #### [facility] [address] Triglyceride w/Reflex 57 mg/dL Normal 0-149 [facility] Comment on above: Result Comment: TRIG ATP III CLASSIFICATION TRIG less than 150 mg/dL Normal TRIG 150-199 mg/dL Borderline high TRIG 200-500 mg/dL High TRIG greater than 500 mg/dL Very high Standard traceable to the Center for Disease Conrtrol and Prevention (CDC) test method. Performed By: #### T 4F, [id number], TSH3 wRFLX, LIPID #### [facility] [address] VLDL CHOLESTEROL 11 mg/dL Normal [facility] Comment on above: Performed By: #### T 4F, [id number], TSH3 wRFLX, LIPID #### [facility] [address] [place] [Moles/volume] in Se rum or PlasmaOrdered By: Joe Davis on 08-16-2023 [place] [Moles/Vol] 0.50 mmol/L Low 0.60-1.20 [facility] Comment on above: Result Comment: PERF ORMED BY: [place] [address] PATHOLOGIST LOOM OPERATOR GATO PEÑA M.D. Performed By: #### L ITH #### [facility] [address] [place] [address] Serum or plasma high density lipoprotein (HDL) cholesterol measurementOrdered By: Joe Davis on 08-16-2023 Cholesterol in HDL [Mass/Vol] 65 mg/dL Normal 23-92 [facility] Comment on above: HDL CHOL ATP-III CLA SSIFICATION Cardiovascular RiskHDL > or equal to 60 mg/dL LOWHDL < 40 mg/dL HIGH Result Comment: HDL CHOL ATP-III CLASSIFICATION Cardiovascular Risk HDL > or equal to 60 mg/dL LOW HDL < 40 mg/dL HIGH Performed By: #### T 4F, [id number], TSH3 wRFLX, LIPID #### [facility] [address] [place] [address] Serum or plasma total choles terol/high density lipoprotein (HDL) cholesterol mass ratOrdered By: Joe Davis on 08-16-2023 Cholesterol.total/Judy sterol in HDL [Mass ratio] 2.3 {ratio} Normal <5.0 [facility] Comment on above: Performed By: #### T 4F, [id number], TSH3 wRFLX, LIPID #### [facility] [address] [place] [address] Thyroid Stim Hormone w/Rflxo n 08-16-2023 Thyroid Stim Hormone w/Rflx 9.75 u[iU]/mL High 0.45-5.33 [facility] Comment on above: Performed By: #### T 4F, [id number], TSH3 wRFLX, LIPID #### [facility] [address] [place] [address] Thyrotropin [Units/volume] i n Serum or PlasmaOrdered By: Joe Davis on 08-16-2023 TSH Qn 9.75 m[IU]/L 0.45-5.33 [facility] Thyroxine (T4) free [Mass/vo lume] in Serum or PlasmaOrdered By: Joe Davis on 08-16-2023 Free T4 [Mass/Vol] 0.69 ng/dL Normal 0.61-1.12 [facility] Comment on above: Performed By: #### T 4F, [id number], TSH3 wRFLX, LIPID #### [facility] [address] [place] [address] Triglyceride [Mass/volume] i n Serum or PlasmaOrdered By: Joe Davis on 08-16-2023 Triglyceride [Mass/Vol] 57 mg/dL 0-149 [facility] Comment on above: TRIG ATP III CLASSIF ICATIONTRIG less than 150 mg/dL NormalTRIG 150-199 mg/dL Borderline highTRIG 200-500 mg/dL High TRIG greater than 500 mg/dL Very highStandard traceable to the Center for Disease Conrtrol and Prevention (CDC) test method. Vitamin D 25 Hydroxy Totalon 08-16-2023 Vitamin D 25 Hydroxy Total 28.6 ng/mL Low 30-100 [facility] Comment on above: Result Comment: EDUARDO MIN D STATUS 25(OH)VITAMIN D RANGE (ng/mL) Deficient <20 Insufficient 20 to <30 Sufficient 30 to 100 Reference: Renée Woodward, Francisco CARPIO, et al. Evaluation,treatment, and prevention of vitamin D deficiency; an Endocrine Society clinical practice guideline. JCEM. 2010; 96(7):1911-. PERFORMED BY: [place] [address] [facility] LOOM OPERATOR GATO PEÑA M.D. Performed By: #### E LONNIE, CBC, CMP #### [address] Vitamin D+Metabolites [Mass/ volume] in Serum or PlasmaOrdered By: Joe Davis on 08-16-2023 Vitamin D+Metabolites [Mass/Vol] 28.6 ng/mL 30-100 [facility] Comment on above: VITAMIN D STATUS [...] ALT [Catalytic activity/Vol] 33 U/L Normal 7-52 [facility] Comment on above: Performed By: #### E LONNIE, CBC, CMP #### [address] Albumin [Mass/volume] in Ser um or Plasma by Bromocresol green (BCG) dye binding methoOrdered By: Nimesh Westfall on 08-15-2023 Albumin BCG dye [Mass/Vol] 4.5 g/dL 3.5-5.7 [facility] Alkaline phosphatase [Enzyma tic activity/volume] in Serum or PlasmaOrdered By: Nimesh Westfall on 08-15-2023 ALP [Catalytic activity/Vol] 96 U/L Normal 34-104 [facility] Comment on above: Performed By: #### E LONNIE, CBC, CMP #### [address] Amphetamine Screen Ql (U)Ord ered By: Nimesh Westfall on 08-15-2023 Amphetamines Ql (U) Negative Negative [facility] Aspartate aminotransferase [ Enzymatic activity/volume] in Serum or PlasmaOrdered By: Nimesh Westfall on 08-15-2023 AST [Catalytic activity/Vol] 21 U/L Normal 13-39 [facility] Comment on above: Performed By: #### E LONNIE, CBC, CMP #### [address] Automated basophil %Ordered By: Nimesh Wetsfall on 08-15-2023 Basophils/100 WBC (Bld) 1.3 % Normal . [facility] Comment on above: Performed By: #### E LONNIE, CBC, CMP #### [address] Automated basophil countOrde red By: Nimesh Westfall on 08-15-2023 Basophils (Bld) [#/Vol] 0.1 10*3/uL Normal 0.0-0.2 [facility] Comment on above: Result Comment: PERF ORMED BY: [place] [address] PATHOLOGIST LOOM OPERATOR GATO PEÑA M.D. Performed By: #### E LONNIE, CBC, CMP #### [address] Automated blood monocyte cou ntOrdered By: Nimesh Westfall on 08-15-2023 Monocytes (Bld) [#/Vol] 0.5 10*3/uL Normal 0.0-0.8 [facility] Comment on above: Performed By: #### E LONNIE, CBC, CMP #### [address] Automated eosinophil %Ordere d By: Nimesh Westfall on 08-15-2023 Eosinophils/100 WBC (Bld) 6.4 % Normal . [facility] Comment on above: Performed By: #### E LONNIE, CBC, CMP #### [address] Automated eosinophil countOr dered By: Nimesh Westfall on 08-15-2023 Eosinophils (Bld) [#/Vol] 0.3 10*3/uL Normal 0.0-0.45 [facility] Comment on above: Performed By: #### E LONNIE, CBC, CMP #### [address] Automated erythrocytes count in urine sediment (number/area)Ordered By: Nimesh Westfall on 08-15-2023 RBC Auto (Urine sed) [#/Area] None seen [HPF] 0-4 [facility] Automated leukocytes count i n urine sediment (number/area)Ordered By: Nimesh Westfall on 08-15-2023 WBC Auto (Urine sed) [#/Area] 3-4 [HPF] 0-4 [facility] Automated monocyte %Ordered By: Nimesh Westfall on 08-15-2023 Monocytes/100 WBC (Bld) 10.6 % Normal . [facility] Comment on above: Performed By: #### E LONNIE, CBC, CMP #### [address] Automated neutrophil %Ordere d By: Nimesh Westfall on 08-15-2023 Neutrophils/100 WBC (Bld) 45.1 % Normal . [facility] Comment on above: Performed By: #### E LONNIE, CBC, CMP #### [address] Automated urine color determ inationOrdered By: Nimesh Westfall on 08-15-2023 Color (U) Yellow Normal Yellow [facility] Comment on above: Order Comment: Name Collection Type:: Clean-Voided Midstream Performed By: #### E LONNIE, CBC, CMP #### [facility] [address] Barbiturates [Presence] in U rine by Screen methodOrdered By: Nimesh Westfall on 08-15-2023 Barbiturates Screen Ql (U) Negative Negative [facility] Benzodiazepines Screen Ql (U )Ordered By: Nimesh Westfall on 08-15-2023 Benzodiazepines Ql (U) Negative Negative [facility] Benzoylecgonine [Presence] i n Urine by Screen methodOrdered By: Nimesh Westfall on 08-15-2023 Benzoylecgonine Screen Ql (U) Negative Negative [facility] Bilirubin Test strip Ql (U)O rdered By: Nimesh Westfall on 08-15-2023 Bilirubin Ql (U) Negative Negative [facility] Bilirubin.total [Mass/volume ] in Serum or PlasmaOrdered By: Nimesh Westfall on 08-15-2023 Bilirubin [Mass/Vol] 0.3 mg/dL Normal 0.3-1.0 [facility] Comment on above: Performed By: #### E LONNIE, CBC, CMP #### [facility] [address] [place] [address] Calcium [Mass/volume] in Ser um or PlasmaOrdered By: Nimesh Westflal on 08-15-2023 Calcium [Mass/Vol] 9.4 mg/dL Normal 8.6-10.3 [facility] Comment on above: Performed By: #### E LONNIE, CBC, CMP #### [facility] [address] Cannabinoids [Presence] in U rine by Screen methodOrdered By: Nimesh Westfall on 08-15-2023 Cannabinoids Screen Ql (U) Negative Negative [facility] Comment on above: These are unconfirme d results and should not be used for legal purposes. Drug Cut-Off Concentration: AMPH 1000 ng/mL PJ 200 ng/mL BETSY 200 ng/mL COCM 300 ng/mL OP 300 ng/mL PCP 25 ng/mL THC 20 ng/mL Carbon dioxide, total [Moles /volume] in Serum or PlasmaOrdered By: Nimesh Malou on 08-15-2023 CO2 [Moles/Vol] 25.3 mmol/L Normal 21.0-31.0 [facility] Comment on above: Performed By: #### E LONNIE, CBC, CMP #### [address] Chloride [Moles/volume] in S kishan or PlasmaOrdered By: Nimesh Westfall on 08-15-2023 Chloride [Moles/Vol] 109 mmol/L High 98-107 [facility] Comment on above: Performed By: #### E LONNIE, CBC, CMP #### [address] Complete Blood Count Auto Di ffon 08-15-2023 Mean Corpuscular HGB Conc 33.0 g/dL Normal 32.0-35.0 [facility] Comment on above: Performed By: #### E LONNIE, CBC, CMP #### [address] Monocytes/100 WBC (Bld) 16.42 % Normal 0.00-20.00 [facility] Comment on above: Performed By: #### E LONNIE, CBC, CMP #### [address] NRBC% 0.1 /100{WBC} Normal 0-0.5 [facility] Comment on above: Performed By: #### E LONNIE, CBC, CMP #### [address] Comprehensive Metabolic Pane eusebia 08-15-2023 Albumin [Mass/Vol] 4.5 g/dL Normal 3.5-5.7 [facility] Comment on above: Performed By: #### E LONNIE, CBC, CMP #### [place] [address] [place] Creatinine Clr Calc Pharmacy 40.94 Normal [facility] Comment on above: Result Comment: PERF ORMED BY: [place] [address] PATHOLOGIST LOOM OPERATOR GATO PEÑA M.D. Performed By: #### E LONNIE, CBC, CMP #### [facility] [address] [place] [address] GFR/1.73 sq M.predicted MDRD (S/P/Bld) [Vol rate/Area] 47.997 mL/min/{1.73_m2} Normal [facility] Comment on above: Performed By: #### E LONNIE, CBC, CMP #### [address] Creatinine [Mass/volume] in Serum or PlasmaOrdered By: Nimesh Westfall on 08-15-2023 Creatinine [Mass/Vol] 1.24 mg/dL High 0.60-1.20 [facility] Comment on above: Performed By: #### E LONNIE, CBC, CMP #### [place] [address] [place] Dipstick and Microscopicon 0 08-15-2023 Appearance (U) Clear Normal Clear [facility] Comment on above: Order Comment: Name Collection Type:: Clean-Voided Midstream Performed By: #### E LONNIE, CBC, CMP #### [place] [address] [place] Bacteria,Urine None Seen Normal None Seen [facility] Comment on above: Order Comment: Name Collection Type:: Clean-Voided Midstream Performed By: #### E LONNIE, CBC, CMP #### [place] [address] [place] Bilirubin,Urine Negative Normal Negative [facility] Comment on above: Order Comment: Name Collection Type:: Clean-Voided Midstream Performed By: #### E LONNIE, CBC, CMP #### [facility] [address] [place] [address] [place] Glucose Ql (U) Normal Normal Normal [facility] Comment on above: Order Comment: Name Collection Type:: Clean-Voided Midstream Performed By: #### E LONNIE, CBC, CMP #### [place] [address] [place] Hyaline Casts,Urine None Seen Normal 0-8 [facility] Comment on above: Order Comment: Name Collection Type:: Clean-Voided Midstream Result Comment: PERF ORMED BY: [place] [address] PATHOLOGIST LOOM OPERATOR GATO PEÑA M.D. Performed By: #### E LONNIE, CBC, CMP #### [place] [address] [place] Ketones Ql (U) Negative Normal Negative [facility] Comment on above: Order Comment: Name Collection Type:: Clean-Voided Midstream Performed By: #### E LONNIE, CBC, CMP #### [place] [address] [place] Leukocyte esterase Test strip Ql (U) 3+ High Negative [facility] Comment on above: Order Comment: Name Collection Type:: Clean-Voided Midstream Performed By: #### E LONNIE, CBC, CMP #### [place] [address] [place] Nitrite,Urine Negative Normal Negative [facility] Comment on above: Order Comment: Name Collection Type:: Clean-Voided Midstream Performed By: #### E LONNIE, CBC, CMP #### [place] [address] [place] Occult Blood,Urine Negative Normal Negative [facility] Comment on above: Order Comment: Name Collection Type:: Clean-Voided Midstream Result Comment: PERF ORMED BY: [place] [address] PATHOLOGIST LOOM OPERATOR GATO PEÑA M.D. Performed By: #### E LONNIE, CBC, CMP #### [address] [address] [place] Protein,Urine Negative Normal Negative [facility] Comment on above: Order Comment: Name Collection Type:: Clean-Voided Midstream Performed By: #### E LONNIE, CBC, CMP #### [address] RBC,Urine None Seen Normal 0-4 [facility] Comment on above: Order Comment: Name Collection Type:: Clean-Voided Midstream Performed By: #### E LONNIE, CBC, CMP #### [address] Specificy [place],Urine 1.005 Normal 1.00 1-1.03 0 [facility] Comment on above: Order Comment: Name Collection Type:: Clean-Voided Midstream Performed By: #### E LONNIE, CBC, CMP #### [address] Squamous Epithelial Cell,Urine None Seen Normal 0-2 [facility] Comment on above: Order Comment: Name Collection Type:: Clean-Voided Midstream Performed By: #### E LONNIE, CBC, CMP #### [address] Urobilinogen,Urine Normal Normal Normal [facility] Comment on above: Order Comment: Name Collection Type:: Clean-Voided Midstream Performed By: #### E LONNIE, CBC, CMP #### [address] WBC,Urine 3-4 Normal 0-4 [facility] Comment on above: Order Comment: Name Collection Type:: Clean-Voided Midstream Performed By: #### E LONNIE, CBC, CMP #### [address] Drug Screen,Urineon 08-15-19 24 Amphetamine Screen,Urine Negative Normal Negative [facility] Comment on above: Performed By: #### E LONNIE, CBC, CMP #### [address] Barbiturate Screen,Urine Negative Normal Negative [facility] Comment on above: Performed By: #### E LONNIE, CBC, CMP #### [place] [address] [place] Benzodiazepines Screen,Urine Negative Normal Negative [facility] Comment on above: Performed By: #### E LONNIE, CBC, CMP #### [address] Cannabinoid Screen,Urine Negative Normal Negative [facility] Comment on above: Result Comment: Thes e are unconfirmed results and should not be used for legal purposes. Drug Cut-Off Concentration: AMPH 1000 ng/mL PJ 200 ng/mL BETSY 200 ng/mL COCM 300 ng/mL OP 300 ng/mL PCP 25 ng/mL THC 20 ng/mL PERFORMED BY: [place] [address] PATHOLOGIST LOOM OPERATOR GATO PEÑA M.D. Performed By: #### E LONNIE, CBC, CMP #### [address] Cocaine Screen,Urine Negative Normal Negative [facility] Comment on above: Performed By: #### E LONNIE CBC, CMP #### [address] Opiate Screen,Urine Negative Normal Negative [facility] Comment on above: Performed By: #### E LONNIE CBC, CMP #### [address] Phencyclidine Screen,Urine Negative Normal Negative [facility] Comment on above: Performed By: #### E LONNIE, CBC, CMP #### [address] Erythrocyte distribution wid th [Ratio] by Automated countOrdered By: Nimesh Westfall on 08-15-2023 Erythrocyte distribution width (RBC) [Ratio] 14.2 % Normal 11.9-15.3 [facility] Comment on above: Performed By: #### E LONNIE, CBC, CMP #### [address] Erythrocytes [#/volume] in B lood by Automated countOrdered By: Nimesh Westfall on 08-15-2023 RBC (Bld) [#/Vol] 3.95 10*6/uL Normal 3.60-5.00 [facility] Comment on above: Performed By: #### E LONNIE, CBC, CMP #### [facility] [address] Ethanol [Mass/volume] in Ser um or PlasmaOrdered By: Nimesh Westfall on 08-15-2023 Ethanol [Mass/Vol] mg/dL Normal [facility] Comment on above: Performed By: #### E LONNIE, CBC, CMP #### [facility] [address] Ethanol [Mass/Vol] TNP [facility] Comment on above: Test not performed Ethyl Alcohol Profileon 08-01 Percent Ethanol Not performed Normal [facility] Comment on above: Result Comment: PERF ORMED BY: [place] [address] PATHOLOGIST LOOM OPERATOR GATO PEÑA M.D. Performed By: #### E LONINE, CBC, CMP #### [address] Glucose [Mass/volume] in Ser um or PlasmaOrdered By: Nimesh Westfall on 08-15-2023 Glucose [Mass/Vol] 113 mg/dL High 70-100 [facility] Comment on above: ADA recommended refe rence rangeRandom Glucose Reference Range is dependent on time and content of last meal. Glucose of more than 200 mg/dL in a nonstressed, ambulatory subject supports the diagnosis of Diabetes Mellitus. Result Comment: Desmet om Glucose Reference Range is dependent on time and content of last meal. Glucose of more than 200 mg/dL in a nonstressed, ambulatory subject supports the diagnosis of Diabetes Mellitus. ADA recommended reference range Performed By: #### E LONNIE, CBC, CMP #### [place] [address] [place] Hematocrit [Volume Fraction] of Blood by Automated countOrdered By: Nimesh Westfall on 08-15-2023 Hematocrit (Bld) [Volume fraction] 37.3 % Normal 34.0-46.4 [facility] Comment on above: Performed By: #### E LONNIE, CBC, CMP #### [facility] [address] Hemoglobin [Mass/volume] in BloodOrdered By: Nimesh Westfall on 08-15-2023 Hemoglobin (Bld) [Mass/Vol] 12.3 g/dL Normal 11.8-15.4 [facility] Comment on above: Performed By: #### E LONNIE, CBC, CMP #### [facility] [address] [place] [address] Ketones Auto test strip (U) [Mass/Vol]Ordered By: Nimesh Westfall on 08-15-2023 Ketones (U) [Mass/Vol] Negative Negative [facility] - UrinalysisOrder ed By: Nimesh Westfall on 08-15-2023 Hyaline casts LM Ql (Urine sed) None seen [LPF] 0-8 [facility] Leukocytes [#/volume] correc cornelia for nucleated erythrocytes in Blood by Automated counOrdered By: Nimesh Westfall on 08-15-2023 WBC corrected for nucl RBC Auto (Bld) [#/Vol] 4.7 10*3/uL 3.8-11.6 [facility] Leukocytes [#/volume] in Blo od by Automated countOrdered By: Nimesh Westfall on 08-15-2023 WBC (Bld) [#/Vol] 4.7 10*3/uL Normal 3.8-11.6 [facility] Comment on above: Performed By: #### E LONNIE, CBC, CMP #### [facility] [address] [place] [address] Lymphocytes [#/volume] in Bl ood by Automated countOrdered By: Nimesh Westfall on 08-15-2023 Lymphocytes (Bld) [#/Vol] 1.7 10*3/uL Normal 1.00-4.8 [facility] Comment on above: Performed By: #### E LONNIE, CBC, CMP #### [facility] [address] Lymphocytes/100 leukocytes i n Blood by Automated countOrdered By: Nimesh Westfall on 08-15-2023 Lymphocytes/100 WBC (Bld) 36.6 % Normal . [facility] Comment on above: Performed By: #### E LONNIE, CBC, CMP #### [facility] [address] [place] [address] MCH [Entitic mass] by Automa cornelia countOrdered By: Nimesh Westfall on 08-15-2023 MCH (RBC) [Entitic mass] 31.2 pg Normal 24.7-34.3 [facility] Comment on above: Performed By: #### E LONNIE, CBC, CMP #### [address] MCHC Auto (RBC) [Mass/Vol]Or dered By: Nimesh Westfall on 08-15-2023 MCHC (RBC) [Mass/Vol] 33.0 g/dL 32.0-35.0 [facility] MCV [Entitic volume] by Auto mated countOrdered By: Nimesh Westfall on 08-15-2023 MCV (RBC) [Entitic vol] 94.5 fL Normal 80-100 [facility] Comment on above: Performed By: #### E LONNIE, CBC, CMP #### [address] Monocyte distribution width [Entitic volume] in Blood by AutomatedOrdered By: Nimesh Westfall on 08-15-2023 Monocyte distribution width Auto (Bld) [Entitic vol] 16.42 % 0.00-20.00 [facility] Neutrophils [#/volume] in Bl ood by Automated countOrdered By: Nimesh Westfall on 08-15-2023 Neutrophils (Bld) [#/Vol] 2.1 10*3/uL Normal 1.8-7.7 [facility] Comment on above: Performed By: #### E LONNIE, CBC, CMP #### [facility] [address] [place] [address] Nitrite Test strip Ql (U)Ord ered By: Nimesh Westfall on 08-15-2023 Nitrite Ql (U) Negative Negative [facility] No Panel InformationOrdered By: Nimesh Westfall on 08-15-2023 Estimated GFR (CKD-EPI) 47.997 mL/Min [facility] Creatinine Clearance (Chem 40.94 [facility] Nucleated erythrocytes [Pres ence] in Blood by Automated countOrdered By: Nimesh Westfall on 08-15-2023 Nucleated RBC Auto Ql (Bld) 0.1 /100{WBC} 0-0.5 [facility] Opiates [Presence] in Urine by Screen methodOrdered By: Nimesh Westfall on 08-15-2023 Opiates Screen Ql (U) Negative Negative [facility] Phencyclidine Screen Ql (U)O rdered By: Nimesh Westfall on 08-15-2023 Phencyclidine Ql (U) Negative Negative [facility] Platelet mean volume [Entiti c volume] in Blood by Automated countOrdered By: Nimesh Westfall on 08-15-2023 Platelet mean volume (Bld) [Entitic vol] 8.4 fL Normal 6.3-10.7 [facility] Comment on above: Performed By: #### E LONNIE, CBC, CMP #### [facility] [address] [place] [address] [place] Platelets [#/volume] in Bloo d by Automated countOrdered By: Nimesh Westfall on 08-15-2023 Platelets (Bld) [#/Vol] 221 10*3/uL Normal 150-450 [facility] Comment on above: Performed By: #### E LONNIE, CBC, CMP #### [facility] [address] [place] [address] [place] Potassium [Moles/volume] in Serum or PlasmaOrdered By: Nimesh Westfall on 08-15-2023 Potassium [Moles/Vol] 4.1 mmol/L Normal 3.5-5.1 [facility] Comment on above: Performed By: #### E LONNIE, CBC, CMP #### [facility] [address] [place] [address] [place] Protein Auto test strip (U) [Mass/Vol]Ordered By: Nimesh Westfall on 08-15-2023 Protein (U) [Mass/Vol] Negative Negative [facility] Protein [Mass/volume] in Ser um or PlasmaOrdered By: Nimesh Westfall on 08-15-2023 Protein [Mass/Vol] 7.0 g/dL Normal 6.4-8.9 [facility] Comment on above: Performed By: #### E HEDY FLEMING, CMP #### [facility] [address] [place] [address] Serum globulin measurement b y calculation (mass/volume)Ordered By: Nimesh Westfall on 08-15-2023 Globulin (S) [Mass/Vol] 2.5 g/dL Normal [facility] Comment on above: Performed By: #### E HEDY FLEMING, CMP #### [address] Serum or plasma albumin/glob ulin mass ratioOrdered By: Nimesh Westfall on 08-15-2023 Albumin/Globulin [Mass ratio] 1.8 {ratio} Normal [facility] Comment on above: Performed By: #### E HEDY FLEMING, CMP #### [address] Serum or plasma anion gap de terminationOrdered By: Nimesh Westfall on 08-15-2023 Anion gap [Moles/Vol] 11.8 mmol/L Normal 6.0-15.0 [facility] Comment on above: Performed By: #### E HEDY FLEMING, CMP #### [address] Sodium [Moles/volume] in Ser um or PlasmaOrdered By: Nimesh Westfall on 08-15-2023 Sodium [Moles/Vol] 142 mmol/L Normal 136-145 [facility] Comment on above: Performed By: #### E HEDY FLEMING, CMP #### [address] Specific gravity Auto test s trip (U) [Rel density]Ordered By: Nimesh Westfall on 08-15-2023 Specific gravity (U) [Rel density] 1.005 1.001-1.03 0 [facility] Squamous epithelial cells de tection in urine sediment by light microscopyOrdered By: Nimesh Westfall on 08-15-2023 Epithelial cells.squamous LM Ql (Urine sed) None seen [HPF] 0-2 [facility] Urea nitrogen [Mass/volume] in Serum or PlasmaOrdered By: Nimesh Westfall on 08-15-2023 Urea nitrogen [Mass/Vol] 27 mg/dL High 7-25 [facility] Comment on above: Performed By: #### E HEDY FLEMING, CMP #### [facility] [address] [place] [address] Urine bacteria detection by automated methodOrdered By: Nimesh Westfall on 08-15-2023 Bacteria Auto Ql (U) None seen None Seen [facility] Urine clarity by refractomet ry automatedOrdered By: Nimesh Westfall on 08-15-2023 Clarity Refractometry automated (U) Clear Clear [facility] Urine glucose measurement by automated test strip (mass/volume)Ordered By: Nimesh Westfall on 08-15-2023 Glucose Auto test strip (U) [Mass/Vol] Normal mg/dL Normal [facility] Urine hemoglobin detection b y automated test stripOrdered By: Nimesh Westfall on 08-15-2023 Hemoglobin Auto test strip Ql (U) Negative Negative [facility] Urine leukocyte esterase det ection by automated test stripOrdered By: Nimesh Westfall on 08-15-2023 Leukocyte esterase Auto test strip Ql (U) 3+ Negative [facility] Urine pH measurement by auto mated test stripOrdered By: Nimesh Westfall on 08-15-2023 pH (U) 7.0 [pH] Normal 5.0-9.0 [facility] Comment on above: Order Comment: Name Collection Type:: Clean-Voided Midstream Performed By: #### E HEDY FLEMING, CMP #### [facility] [address] [place] [address] Urobilinogen Auto test strip (U) [Mass/Vol]Ordered By: Nimesh Westfall on 08-15-2023 Urobilinogen (U) [Mass/Vol] Normal mg/dL Normal [facility] CNPNon 08-09-2023 DAKSHAN Telephone (HNQ) -------- ROBBIEGAIL MAN ([id number]) 1955 F Date Time Provider Department 08/09/23 YANDEL DANIEL During your visit today, we recorded the following information about you: Nena Rodriguez 08/09/2023 9:45 AM Signed Person Calling: Margaux - RN at [facility] Reason for Call: patient is going to need refills on levothyroxine and calcium carbonate. She was unsure if we would fill that request or her pcp Margaux: [phone] Pharmacy Name and # : [facility] [id number] - [address] [facility] - [phone] [place] [address] [address] [place] [phone] Pt last seen: 06/28/2023 Radha Sewell, RN 08/09/2023 4:29 PM Signed Called [facility] Transferred to [facility]. No answer phone continued ringing no voicemail available. Radha Brice, RN 09/03/2023 8:00 AM Signed No return call for [facility]. Closing encounter. Allergies As of Date: 08/09/2023 [...] Fully Assessed Reason for Visit: Patient Question [2267] Prescriptions as of 09/03/2023 - calcium carbonate [...] mouth every 12 hours as needed. - qjeblk-hdjtpnuk-insmyab (ENZADYNE) 9,000-112,500- 112,500 unit capsule Take 1 [...] Encounter Status:Closed by RADHA BRICE on 09/03/23 [facility] No Panel Informationon 07-16 Type [...] taken Amount of lidocaine used: 0.3 cc [facility] CNOVon 06-28-2023 CNOV Office Visit (OTOLMN ) -------- GAIL ALMEIDA ([id number]) 1955 F Date Time Provider Department 06/28/23 3:45 PM YANDEL DANIEL OTOLFL During your visit today, we recorded the [...] by mouth every 12 hours as needed. pyhihs-psfwhiox-ojqyoyo (ENZADYNE) 9,000-112,500- 112,500 unit capsule Take 1 [...] will continu (more content not included)... [facility] Telephone (HNQ) -------- GAIL ALMEIDA ([id number]) 1955 F Date Time Provider Department 06/24/23 YANDEL DANIEL During your visit today, we recorded the following information about you: Nena Rodriguez 06/24/2023 11:32 AM Signed Person Calling: Susannah - Pharmacist at [facility] Reason for Call: Susannah called in to see if there is alternative product/brand for gkgrte-uumsrqqg-mzjwsei 9,000-112,500- 112,500 unit cap 1 capsule (ENZADYNE) that Dr. Daniel would be comfortable prescribing. The current one sent to the pharmacy, they do not have Pt Phone #: [phone] Pharmacy Name and # : [place] [address] - [address] [facility] [phone] Pt last seen: 06/18/2023 Amy Diaz RN 06/24/2023 3:[address] Daniel [...] mouth every 12 hours as needed. - rgxdtl-iuubcyna-yvxrbvw (ENZADYNE) 9,000-112,500- 112,500 unit capsule Take 1 [...] Encounter Status:Closed by AMY NG on 06/24/23 [facility] CNDSon 06-22-2023 CNDS HNO ID: [id number] Author: YANDEL DANIEL MD Service: Otolaryngology Author [...] (surgical) FOLLOW-UP APPOINTMENTS ALREADY SCHEDULED WITH A [facility] PROVIDER: Future Appointments Date Time Provider Department Center 09/27/2023 9:45 AM Yandel Daniel MD OTOLTHA Soriano ALLERGIES Allergen Reactions - Aspirin Other: See [...] nasal spray folic acid 800 mcg tablet xmuxbt-lskqxlfe-asutcrc 9,000-112,500- 112,500 unit capsule Commonly known as: [...] mcg (200 unit) per tablet Generic drug: zgpezwb-eagotfbvu-urfafv n D3 * QUEtiapine XR 400 mg [...] (more content not included)... Normal [facility] CONSULTon 06-21-2023 CONSULT HNO ID: [id number] Author: MARIAH FOWLER MD Service: Hospital Medicine [...] disorder On Topiramate 25mg daily Quetiapine 12.5/12.5/400 [place] 150mg BID Clonidine 0.1mg po daily Amantadine [...] as needed., Disp: , Rfl: , 06/17/2023 weqizw-ugkjbxui-ukpvgpx (ENZADYNE) 9,000-112,500- 112,500 unit capsule, Take 1 capsule by mouth daily with food., Disp: , Rfl: (more content not included)... Normal [facility] CYSTATIN Con 06-21-2023 Cystatin C [Mass/Vol] 1.84 mg/L High 0.61-0.95 [facility] Comment on above: Order Comment: Pio espino Type: BLOOD SPECIMENOrdering Facility: [facility] Address: [address] [place] [address] Performed By: #### 2 4362-6, [facility] ####[facility] LABCLIA [id number] [place] [address] [place] CYSTATIN C EGFR 31 mL/min/1.73m??? Low >=60 C [facility] Comment on above: Order Comment: Pio espino Type: BLOOD SPECIMENOrdering Facility: [facility] Address: [address] [place] [address] Result Comment: Leanna mated Glomerular Filtration Rate [...] GFR. Performed By: #### 2 4362-6, CYSTC ####[facility] [id number] [place] [address] [place] [facility] Calcium.ionized [Moles/Vol]o n 06-21-2023 Calcium.ionized (Bld) [Mass/Vol] 1.27 mmol/L Normal 1.08-1.30 [facility] Comment on above: Order Comment: Speci men Type: BLOOD SPECIMENOrdering Facility: [facility] Address: [address] [place] [address] Performed By: #### 1 995-0 ####[facility] [id number] [address] [place] Calcium.ionized adjusted to pH 7.4 (Bld) [Moles/Vol] 1.29 mmol/L Normal 1.08-1.30 [facility] Comment on above: Order Comment: Speci men Type: BLOOD SPECIMENOrdering Facility: [facility] Address: [address] [place] [address] Performed By: #### 1 995-0 ####[facility] [id number] [address] [place] NURSING PROGon 06-21-2023 NURSING PROG HNO ID: [id number] Author: AKIKO LONG RN Service: ? Author [...] will page Dr Kody Terrell [facility] Renal function 2000 panelon 06-21-2023 Albumin [Mass/Vol] 4.1 g/dL Normal 3.9-4.9 [facility] Comment on above: Order Comment: Speci men Type: BLOOD SPECIMENOrdering Facility: [facility] Address: [address] [place] [address] Performed By: #### 2 4362-6, CYSTC ####[facility] LABCLIA [id number] [place] [address] [place] Anion gap [Moles/Vol] 13 mmol/L Normal 9-18 [facility] Comment on above: Order Comment: Speci men Type: BLOOD SPECIMENOrdering Facility: [facility] Address: [address] [place] [address] Performed By: #### 2 4362-6, CYSTC ####[facility] LABCLIA [id number] [place] [address] [place] Calcium [Mass/Vol] 9.6 mg/dL Normal 8.5-10.2 [facility] Comment on above: Order Comment: Speci men Type: BLOOD SPECIMENOrdering Facility: [facility] Address: [address] [place] [address] Performed By: #### 2 4362-6, CYSTC ####[facility] LABCLIA [id number] [place] [address] [place] Chloride [Moles/Vol] 104 mmol/L Normal 97-105 [facility] Comment on above: Order Comment: Speci men Type: BLOOD SPECIMENOrdering Facility: [facility] Address: [address] [place] [address] Performed By: #### 2 4362-6, CYSTC ####[facility] LABCLIA [id number] [place] [address] [place] CO2 [Moles/Vol] 25 mmol/L Normal 22-30 [facility] Comment on above: Order Comment: Speci men Type: BLOOD SPECIMENOrdering Facility: [facility] Address: [address] [place] [address] Performed By: #### 2 4362-6, CYSTC ####[facility] LABCLIA [id number] [place] [address] [place] Creatinine [Mass/Vol] 1.20 mg/dL High 0.58-0.96 [facility] Comment on above: Order Comment: Pio espino Type: BLOOD SPECIMENOrdering Facility: [facility] Address: [address] [place] [address] Performed By: #### 2 4362-6, CYSTC ####[facility] LABCLIA [id number] [place] [address] [place] Creatinine and Glomerular filtration rate.predicted panel (S/P/Bld) 50 mL/min/1.73m??? Low >=60 [facility] Comment on above: Order Comment: Pio espino Type: BLOOD SPECIMENOrdering Facility: [facility] Address: [address] [place] [address] Result Comment: Leanna mated Glomerular Filtration Rate [...] GFR. Performed By: #### 2 4362-6, CYSTC ####[facility] LABCLIA [id number] [place] [address] [place] Glucose [Mass/Vol] 161 mg/dL High 74-99 [facility] Comment on above: Order Comment: Pio espino Type: BLOOD SPECIMENOrdering Facility: [facility] Address: [address] [place] [address] Result Comment: The [place] [employer] (ADA) provides guidance for cutoff [...] Standards of Medical Care in Diabetes 2016, [place] [employer]. Diabetes Care. 2016.39(Suppl 1). Performed By: #### 2 4362-6, CYSTC ####[facility] LABCLIA [id number] [place] [address] [place] Phosphate [Mass/Vol] 4.2 mg/dL Normal 2.7-4.8 [facility] Comment on above: Order Comment: Speci men Type: BLOOD SPECIMENOrdering Facility: [facility] Address: [address] [place] [address] Performed By: #### 2 4362-6, CYSTC ####[facility] LABCLIA [id number] [place] [address] [place] Potassium [Moles/Vol] 4.0 mmol/L Normal 3.7-5.1 [facility] Comment on above: Order Comment: Speci men Type: BLOOD SPECIMENOrdering Facility: [facility] Address: [address] [place] [address] Performed By: #### 2 4362-6, CYSTC ####[facility] LABCLIA [id number] [place] [address] [place] Sodium [Moles/Vol] 142 mmol/L Normal 136-144 [facility] Comment on above: Order Comment: Speci men Type: BLOOD SPECIMENOrdering Facility: [facility] Address: [address] [place] [address] Performed By: #### 2 4362-6, CYSTC ####[facility] LABCLIA [id number] [place] [id number] [place] Urea nitrogen [Mass/Vol] 26 mg/dL High 7-21 [facility] Comment on above: Order Comment: Speci men Type: BLOOD SPECIMENOrdering Facility: [facility] Address: [address] [place] [address] Performed By: #### 2 4362-6, CYSTC ####[facility] LABCLIA [id number] [place] [address] [place] Urinalysis complete panel (U )on 06-21-2023 Bacteria LM.HPF (Urine sed) [#/Area] Negative Normal Negative [facility] Comment on above: Order Comment: Speci men Type: URINE SPECIMENOrdering Facility: [facility] Address: [address] [place] [address] Performed By: #### 2 4356-8 ####[facility] LABCLIA [id number] [place] [address] [place] Bilirubin Ql (U) Negative Normal Negative [facility] Comment on above: Order Comment: Speci men Type: URINE SPECIMENOrdering Facility: [facility] Address: [address] [place] [address] Performed By: #### 2 4356-8 ####[facility] LABCLIA [id number] [place] [address] [place] Clarity (Unsp spec) Clear Normal Clear [facility] Comment on above: Order Comment: Speci men Type: URINE SPECIMENOrdering Facility: [facility] Address: [address] [place] [address] Performed By: #### 2 4356-8 ####[facility] LABCLIA [id number] [place] [address] [place] Color (U) Yellow Normal Yellow [facility] Comment on above: Order Comment: Speci men Type: URINE SPECIMENOrdering Facility: [facility] Address: [address] [place] [address] Performed By: #### 2 4356-8 ####[facility] LABCLIA [id number] [place] [address] [place] Epithelial cells LM.HPF (Urine sed) [#/Area] Few Normal [facility] Comment on above: Order Comment: Speci men Type: URINE SPECIMENOrdering Facility: [facility] Address: [address] [place] [address] Performed By: #### 2 4356-8 ####[facility] LABCLIA [id number] [place] [address] [place] Glucose Test strip (U) [Mass/Vol] Negative Normal Negative [facility] Comment on above: Order Comment: Speci men Type: URINE SPECIMENOrdering Facility: [facility] Address: [address] [place] [address] Performed By: #### 2 4356-8 ####[facility] LABCLIA [id number] [place] [address] [place] Hemoglobin Ql (U) Negative Normal Negative [facility] Comment on above: Order Comment: Speci men Type: URINE SPECIMENOrdering Facility: [facility] Address: [address] [place] [address] Performed By: #### 2 4356-8 ####[facility] LABCLIA [id number] [place] [address] [place] Hyaline casts (Urine sed) [#/Area] 0 /[LPF] Normal 0 /LPF [facility] Comment on above: Order Comment: Speci men Type: URINE SPECIMENOrdering Facility: [facility] Address: [address] [place] [address] Performed By: #### 2 4356-8 ####[facility] LABCLIA [id number] [place] [address] [place] Ketones Ql (U) Negative Normal Negative [facility] Comment on above: Order Comment: Speci men Type: URINE SPECIMENOrdering Facility: [facility] Address: [address] [place] [address] Performed By: #### 2 4356-8 ####[facility] LABCLIA [id number] [address] [place] Leukocyte esterase Test strip Ql (U) 1+ Abnormal Negative [facility] Comment on above: Order Comment: Speci men Type: URINE SPECIMENOrdering Facility: [facility] Address: [address] [place] [address] Performed By: #### 2 4356-8 ####[facility] LABCLIA [id number] [place] [address] [place] Nitrite Ql (U) Negative Normal Negative [facility] Comment on above: Order Comment: Speci men Type: URINE SPECIMENOrdering Facility: [facility] Address: [address] [place] [address] Performed By: #### 2 4356-8 ####[facility] LABCLIA [id number] [place] [address] [place] pH (U) 7.0 [pH] Normal <8.5 [facility] Comment on above: Order Comment: Speci men Type: URINE SPECIMENOrdering Facility: [facility] Address: [address] [place] [address] Performed By: #### 2 4356-8 ####[facility] LABCLIA [id number] [place] [address] [place] Protein (U) [Mass/Vol] Negative Normal Negative [facility] Comment on above: Order Comment: Speci men Type: URINE SPECIMENOrdering Facility: [facility] Address: [address] [place] [address] Performed By: #### 2 4356-8 ####[facility] LABIA [id number] [place] [address] [place] RBC LM.HPF (Urine sed) [#/Area] 0-2 /HPF Normal 0-2 /HPF [facility] Comment on above: Order Comment: Speci men Type: URINE SPECIMENOrdering Facility: [facility] Address: [address] [place] [address] Performed By: #### 2 4356-8 ####[facility] LABIA [id number] [place] [address] [place] Specific gravity (U) [Rel density] 1.009 Normal 1.005-1.03 0 [facility] Comment on above: Order Comment: Speci men Type: URINE SPECIMENOrdering Facility: [facility] Address: [address] [place] [address] Performed By: #### 2 4356-8 ####[facility] LABIA [id number] [place] [address] [place] Urobilinogen Ql (U) 0.2 EU/dL Normal 0.2-1.0 EU/dL [facility] Comment on above: Order Comment: Speci men Type: URINE SPECIMENOrdering Facility: [facility] Address: [address] [place] [address] Performed By: #### 2 4356-8 ####[facility] [id number] [place] [address] [place] WBC LM.HPF (Urine sed) [#/Area] 0-5 /HPF Normal 0-5 /HPF [facility] Comment on above: Order Comment: Speci men Type: URINE SPECIMENOrdering Facility: [facility] Address: [address] [place] [address] Performed By: #### 2 4356-8 ####[facility] [id number] [place] [address] [place] Basic metabolic 2000 panelon 06-20-2023 Anion gap [Moles/Vol] 10 mmol/L Normal 9-18 [facility] Comment on above: Order Comment: Speci men Type: BLOOD SPECIMENOrdering Facility: [facility] Address: [address] [place] [address] Performed By: #### 2 777-1, 2731-8, 17033-2, 26052-0 ####[facility] LABIA [id number] [address] [place] [address] [place] Calcium [Mass/Vol] 10.8 mg/dL High 8.5-10.2 [facility] Comment on above: Order Comment: Speci men Type: BLOOD SPECIMENOrdering Facility: [facility] Address: [address] [place] [address] Performed By: #### 2 777-1, 273-8, , 74222-0 ####[facility] LABCLIA [id number] [place] [id number] [place] Chloride [Moles/Vol] 104 mmol/L Normal 97-105 [facility] Comment on above: Order Comment: Speci men Type: BLOOD SPECIMENOrdering Facility: [facility] Address: [address] [place] [address] Performed By: #### 2 777-1, 273-8, , 19948-3 ####[facility] LABCLIA [id number] [place] [address] [place] CO2 [Moles/Vol] 26 mmol/L Normal 22-30 [facility] Comment on above: Order Comment: Speci men Type: BLOOD SPECIMENOrdering Facility: [facility] Address: [address] [place] [address] Performed By: #### 2 777-1, 273-8, , 22431-6 ####[facility] LABCLIA [id number] [place] [address] [place] Creatinine [Mass/Vol] 1.27 mg/dL High 0.58-0.96 [facility] Comment on above: Order Comment: Speci men Type: BLOOD SPECIMENOrdering Facility: [facility] Address: [address] [place] [address] Performed By: #### 2 777-1, 273-8, , 71207-7 ####[facility] LABCLIA [id number] [place] [address] [place] Creatinine and Glomerular filtration rate.predicted panel (S/P/Bld) 47 mL/min/1.73m??? Low >=60 [facility] Comment on above: Order Comment: Pio espino Type: BLOOD SPECIMENOrdering Facility: [facility] Address: [address] [place] [address] Result Comment: Leanna mated Glomerular Filtration Rate [...] GFR. Performed By: #### 2 777-1, 2730-8, 97738-5, 93439-7 ####[facility] LABCLIA [id number] [place] [address] [place] Glucose [Mass/Vol] 113 mg/dL High 74-99 [facility] Comment on above: Order Comment: Pio espino Type: BLOOD SPECIMENOrdering Facility: [facility] Address: [address] [place] [address] Result Comment: The [place] [employer] (ADA) provides guidance for cutoff [...] Standards of Medical Care in Diabetes 2016, [place] [employer]. Diabetes Care. 2016.39(Suppl 1). Performed By: #### 2 777-1, 2731-8, 13713-3, 71851-8 ####[facility] LABCLIA [id number] [place] [id number] [address] [place] Potassium [Moles/Vol] 4.0 mmol/L Normal 3.7-5.1 [facility] Comment on above: Order Comment: Speci men Type: BLOOD SPECIMENOrdering Facility: [facility] Address: [address] [place] [address] Performed By: #### 2 777-1, 2731-8, 84473-7, 90028-4 ####[facility] LABCLIA [id number] [place] [address] [place] Sodium [Moles/Vol] 140 mmol/L Normal 136-144 [facility] Comment on above: Order Comment: Speci men Type: BLOOD SPECIMENOrdering Facility: [facility] Address: [address] [place] [address] Performed By: #### 2 777-1, 273-8, 68004-0, 48903-8 ####[facility] LABCLIA [id number] [place] [address] [place] Urea nitrogen [Mass/Vol] 26 mg/dL High 7-21 [facility] Comment on above: Order Comment: Speci men Type: BLOOD SPECIMENOrdering Facility: [facility] Address: [address] [place] [address] Performed By: #### 2 777-1, 273-8, 48517-7, 37000-3 ####[facility] LABCLIA [id number] [place] [address] [place] CBC panel Auto (Bld)on 06-20 Erythrocyte distribution width (RBC) [Ratio] 13.3 % Normal 11.5-15.0 [facility] Comment on above: Order Comment: Speci men Type: BLOOD SPECIMENOrdering Facility: [facility] Address: [address] [place] [address] Performed By: #### 2 731-8, 03852-1 ####[facility] LABCLIA [id number] [place] [address] [place] Hematocrit (Bld) [Volume fraction] 42.6 % Normal 36.0-46.0 [facility] Comment on above: Order Comment: Speci men Type: BLOOD SPECIMENOrdering Facility: [facility] Address: [address] [place] [address] Performed By: #### 2 731-8, 20830-0 ####[facility] LABCLIA [id number] [place] [address] [place] Hemoglobin (Bld) [Mass/Vol] 14.0 g/dL Normal 11.5-15.5 [facility] Comment on above: Order Comment: Speci men Type: BLOOD SPECIMENOrdering Facility: [facility] Address: [address] [place] [address] Performed By: #### 2 731-8, 22616-2 ####[facility] LABCLIA [id number] [place] [address] [place] MCH (RBC) [Entitic mass] 31.7 pg Normal 26.0-34.0 [facility] Comment on above: Order Comment: Speci men Type: BLOOD SPECIMENOrdering Facility: [facility] Address: [address] [place] [address] Performed By: #### 2 731-8, 24785-5 ####[facility] LABIA [id number] [place] [address] [place] MCHC (RBC) [Mass/Vol] 32.9 g/dL Normal 30.5-36.0 [facility] Comment on above: Order Comment: Speci men Type: BLOOD SPECIMENOrdering Facility: [facility] Address: [address] [place] [address] Performed By: #### 2 731-8, 35351-3 ####[facility] LABCLIA [id number] [place] [address] [place] MCV (RBC) [Entitic vol] 96.4 fL Normal 80.0-100.0 [facility] Comment on above: Order Comment: Speci men Type: BLOOD SPECIMENOrdering Facility: [facility] Address: [address] [place] [address] Performed By: #### 2 731-8, 21132-0 ####[facility] LABCLIA [id number] [place] [address] [place] Nucleated RBC (Bld) [#/Vol] 10*3/uL Normal <0.01 [facility] Comment on above: Order Comment: Speci men Type: BLOOD SPECIMENOrdering Facility: [facility] Address: [address] [place] [address] Performed By: #### 2 731-8, 06620-9 ####[facility] LABCLIA [id number] [place] [address] [place] Platelet mean volume (Bld) [Entitic vol] 10.1 fL Normal 9.0-12.7 [facility] Comment on above: Order Comment: Speci men Type: BLOOD SPECIMENOrdering Facility: [facility] Address: [address] [place] [address] Performed By: #### 2 731-8, 33636-2 ####[facility] LABCLIA [id number] [place] [address] [place] Platelets (Bld) [#/Vol] 201 10*3/uL Normal 150-400 [facility] Comment on above: Order Comment: Speci men Type: BLOOD SPECIMENOrdering Facility: [facility] Address: [address] [place] [address] Performed By: #### 2 731-8, 94815-8 ####[facility] LABCLIA [id number] [place] [address] [place] RBC (Bld) [#/Vol] 4.42 10*6/uL Normal 3.90-5.20 [facility] Comment on above: Order Comment: Speci men Type: BLOOD SPECIMENOrdering Facility: [facility] Address: [address] [place] [address] Performed By: #### 2 731-8, 49521-8 ####[facility] LABCLIA [id number] [place] [address] [place] WBC (Bld) [#/Vol] 7.26 10*3/uL Normal 3.70-11.00 [facility] Comment on above: Order Comment: Speci men Type: BLOOD SPECIMENOrdering Facility: [facility] Address: [address] [place] [address] Performed By: #### 2 731-8, 39250-3 ####[facility] LABCLIA [id number] [place] [address] [place] Calcium.ionized [Moles/Vol]o n 06-20-2023 Calcium.ionized (Bld) [Mass/Vol] 1.37 mmol/L High 1.08-1.30 [facility] Comment on above: Order Comment: Speci men Type: BLOOD SPECIMENOrdering Facility: [facility] Address: [address] [place] [address] Performed By: #### 1 995-0 ####[facility] LABIA [id number] [place] [address] [place] Calcium.ionized adjusted to pH 7.4 (Bld) [Moles/Vol] 1.38 mmol/L High 1.08-1.30 [facility] Comment on above: Order Comment: Speci men Type: BLOOD SPECIMENOrdering Facility: [facility] Address: [address] [place] [address] Performed By: #### 1 995-0 ####[facility] LABCLIA [id number] [place] [address] [place] Calcium.ionized (Bld) [Mass/Vol] 1.38 mmol/L High 1.08-1.30 [facility] Comment on above: Order Comment: Speci men Type: BLOOD SPECIMENOrdering Facility: [facility] Address: [address] [place] [address] Performed By: #### 1 995-0 ####[facility] LABIA [id number] [place] [address] [place] Calcium.ionized adjusted to pH 7.4 (Bld) [Moles/Vol] 1.40 mmol/L High 1.08-1.30 [facility] Comment on above: Order Comment: Speci men Type: BLOOD SPECIMENOrdering Facility: [facility] Address: [address] [place] [address] Performed By: #### 1 995-0 ####[facility] LABIA [id number] [place] [address] [place] Magnesium SerPl-ncon 06-20 Magnesium [Mass/Vol] 1.8 mg/dL Normal 1.7-2.3 [facility] Comment on above: Order Comment: Speci men Type: BLOOD SPECIMENOrdering Facility: [facility] Address: [address] [place] [address] Performed By: #### 2 777-1, 2731-8, 52038-6, 47153-1 ####[facility] [id number] [place] [address] [place] PTH-Intact SerPl-mCncon 06-03 Parathyrin.intact [Mass/Vol] pg/mL Low 15-65 [facility] Comment on above: Order Comment: Speci men Type: BLOOD SPECIMENOrdering Facility: [facility] Address: [address] [place] [address] Performed By: #### 2 731-8, 45368-7 ####[facility] LABIA [id number] [place] [address] [place] Result Comment: Resu lt rechecked. Performed By: #### 2 777-1, 2731-8, 91730-3, 08140-6 ####[facility] LABIA [id number] [place] [id number] [place] Phosphate SerPl-mCncon 06-20 Phosphate [Mass/Vol] 4.9 mg/dL High 2.7-4.8 [facility] Comment on above: Order Comment: Speci men Type: BLOOD SPECIMENOrdering Facility: [facility] Address: [address] [place] [address] Performed By: #### 2 777-1, 2731-8, 48099-8, 95329-7 ####[facility] LABIA [id number] [place] [id number] [place] CNPDayanara 06-19-2023 CNPN Telephone (HNQ) -------- GAIL ALMEIDA ([id number]) 1955 F Date Time Provider Department 06/19/23 [...] still planning on being discharged today Margaux: [phone] Pt last seen: 06/18/23 Nena Rodriguez Allergies [...] taste/odor Date Reviewed: 06/18/2023 Reviewed by: Jonathan Valnecia RN - Fully Assessed Reason for Visit: [...] mouth every 12 hours as needed. - akdbyz-wbusroeh-hcryxss (ENZADYNE) 9,000-112,500- 112,500 unit capsule Take 1 [...] (more content not included)... Normal [facility] Calcium.ionized [Moles/Vol]o n 06-19-2023 Calcium.ionized (Bld) [Mass/Vol] 1.43 mmol/L High 1.08-1.30 [facility] Comment on above: Order Comment: Speci men Type: BLOOD SPECIMENOrdering Facility: [facility] Address: [address] [place] [address] Performed By: #### 1 995-0 ####[facility] [id number] [place] [address] [place] Calcium.ionized adjusted to pH 7.4 (Bld) [Moles/Vol] 1.43 mmol/L High 1.08-1.30 [facility] Comment on above: Order Comment: Speci men Type: BLOOD SPECIMENOrdering Facility: [facility] Address: [address] [place] [address] Performed By: #### 1 995-0 ####[facility] [id number] [place] [address] [place] Calcium.ionized (Bld) [Mass/Vol] 1.37 mmol/L High 1.08-1.30 [facility] Comment on above: Order Comment: Speci men Type: BLOOD SPECIMENOrdering Facility: [facility] Address: [address] [place] [address] Performed By: #### 1 995-0 ####[facility] LABIA [id number] [place] [address] [place] Calcium.ionized adjusted to pH 7.4 (Bld) [Moles/Vol] 1.35 mmol/L High 1.08-1.30 [facility] Comment on above: Order Comment: Speci men Type: BLOOD SPECIMENOrdering Facility: [facility] Address: [address] [place] [address] Performed By: #### 1 995-0 ####[facility] [id number] [place] [address] [place] Calcium.ionized (Bld) [Mass/Vol] 1.28 mmol/L Normal 1.08-1.30 [facility] Comment on above: Order Comment: Speci men Type: BLOOD SPECIMENOrdering Facility: [facility] Address: [address] [place] [address] Performed By: #### 1 995-0 ####[facility] [id number] [place] [address] [place] Calcium.ionized adjusted to pH 7.4 (Bld) [Moles/Vol] 1.27 mmol/L Normal 1.08-1.30 [facility] Comment on above: Order Comment: Speci men Type: BLOOD SPECIMENOrdering Facility: [facility] Address: [address] [place] [address] Performed By: #### 1 995-0 ####[facility] LABIA [id number] [place] [address] [place] Calcium.ionized (Bld) [Mass/Vol] 1.27 mmol/L Normal 1.08-1.30 [facility] Comment on above: Order Comment: Speci men Type: BLOOD SPECIMENOrdering Facility: [facility] Address: [address] [place] [address] Performed By: #### 1 995-0 ####[facility] LABCLIA [id number] [place] [address] [place] Calcium.ionized adjusted to pH 7.4 (Bld) [Moles/Vol] 1.24 mmol/L Normal 1.08-1.30 [facility] Comment on above: Order Comment: Speci men Type: BLOOD SPECIMENOrdering Facility: [facility] Address: [address] [place] [address] Performed By: #### 1 995-0 ####[facility] LABCLIA [id number] [place] [address] [place] PTH-Intact SerPl-ncon 06-03 Parathyrin.intact [Mass/Vol] 6 pg/mL Low 15-65 [facility] Comment on above: Order Comment: Speci men Type: BLOOD SPECIMEN Ordering Facility: [facility] Address: [address] [place] [address] Performed By: #### 2 731-8 #### [facility] CLIA [id number] [address] [place] [address] [place] ANES POSTPROC EVALon 024 ANES POSTPROC EVAL HNO ID: [id number] Author: LU CAREY MD Service: ? Author Type: Anesthesiologist Type: Anesthesia Postprocedure Evaluation Filed: 06/18/2023 18:05 Note Text: POST ANESTHESIA EVALUATION NOTE : 1955 Procedure Summary Date: 06/18/23 Room / Location: [address] Anesthesia Start: 1159 Anesthesia Stop: 1555 [...] June 18, 2023 TIME: 6:05 PM CSN: [id number] Normal [facility] ANES PRE-OPon 06-18-2023 ANES PRE-OP HNO ID: [id number] Author: JANETH VARGAS DO Service: ? Author Type: Physician Type: Anesthesia Preprocedure Evaluation Filed: 06/18/2023 12:51 Note Text: ANESTHESIOLOGY DAY OF SURGERY NOTE : 1955 Procedure Information Date/Time: 06/18/23 1045 Procedure: THYROIDECTOMY TOTAL (Thyroid) Location: [facility] [place] Surgeons: Yandel Daniel MD Estimated body mass [...] and consent discussed: yes. Patient / Responsible Libertarian agrees to proceed: yes Patient / Surrogate [...] June 18, 2023 TIME: 9:48 AM CSN: [id number] Normal [facility] BRIEF OP NOTon 06-18-2023 BRIEF OP NOT HNO ID: [id number] Author: DAKOTA SMITH MD Service: Otolaryngology Author Type: Resident Type: Brief Op Note Filed: 06/18/2023 15:30 Note Text: BRIEF OPERATIVE NOTE Otorhinolaryngology LOG ID: [id number] Surgery / Procedure Date: 06/18/2023 Incision / Procedure Start Time: 12:35 PM Incision Close / Procedure End Time: 3:17 PM Procedure(s): Procedure(s) and Anesthesia Type: * THYROIDECTOMY TOTAL - General Total thyroidectomy with removal of substernal goiter Parathyroid autoimplantation into SCM x2 CROW-AF parathyroid detection Surgeon(s) / Proceduralist(s) and [place] Wrapper Maker(s): Surgeon(s) and Role: * Yandel Daniel MD [...] 3:29 PM Click to page Please page [phone] after 5pm and on weekends Normal [facility] CONSULT PROGon 06-18-2023 CONSULT PROG HNO ID: [id number] Author: LYDIA MACK RPh Service: Pharmacy Author Type: Pharmacist Type: Consult [...] DAILY Question: Pharmacist may modify dose per [facility] dose optimization consult agreement Answer: Yes 06/18/23 1911 06/18/23 1600 ceFAZolin iv piggyback 2 g in D5W (iso-osmotic) 100 mL (ANCEF) EVERY 8 HOURS Question Answer Comment Antimicrobial indication Prophylaxis Pharmacist may modify dose per [facility] dose optimization consult agreement Yes 06/18/23 1555 For medications which dose is dependent on renal function, a pharmacist will monitor renal function daily and adjust doses accordingly. Any dose adjustments needed based on changes in indication will require an LIP to enter a new order. Managing Pharmacist: Lydia Mack RPh, available at: Ext [phone] If you have any questions, please contact Pharmacy at Ext [phone]. CrCl cannot be calculated (Patient's most recent [...] Temp: 36.5 ?C (97.7 ?F) Lydia Mack [facility] June 18, 2023 7:31 PM Normal [facility] Calcium.ionized [Moles/Vol]o n 06-18-2023 Calcium.ionized (Bld) [Mass/Vol] 1.40 mmol/L High 1.08-1.30 [facility] Comment on above: Order Comment: Speci men Type: BLOOD SPECIMEN Ordering Facility: [facility] Address: [address] [place] [address] Performed By: #### 1 995-0 #### [facility] CLIA [id number] [address] [place] [address] [place] Calcium.ionized adjusted to pH 7.4 (Bld) [Moles/Vol] 1.30 mmol/L Normal 1.08-1.30 [facility] Comment on above: Order Comment: Speci men Type: BLOOD SPECIMEN Ordering Facility: [facility] Address: [address] [place] [address] Performed By: #### 1 995-0 #### [facility] CLIA [id number] [address] [place] [address] [place] NURSING PROGon 06-18-2023 NURSING PROG HNO ID: [id number] Author: ALETHEA OLIVEROS RN Service: Nursing Author Type: Registered Nurse Type: Nursing Progress Note Filed: 06/18/2023 19:22 Note Text: Pt takes [place] at nite. 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 Awaiting orders. Continue to monitor Normal [facility] NURSING PROG HNO ID: [id number] Author: ALETHEA OLIVEROS RN Service: Nursing Author Type: Registered Nurse Type: Nursing Progress Note Filed: 06/18/2023 19:09 Note Text: Admission/Transfer Note PATIENT NAME: Gail lAmeida Patient Location: Main - Periop OR/Main - Periop OR Room: Main - Periop OR (Main Pre/Post) Patient admitted from PACU via stretcher in stable condition. Actions taken: Patient oriented to room, call light function, prescribed activities, Patient rights, and Quiet at night. This note was completed by: Alethea Terrell [facility] OPERATIVE NOon 06-18-2023 OPERATIVE NO HNO ID: [id number] Author: YANDEL DANIEL MD Service: Otolaryngology Author Type: Physician Type: Operative Report Filed: 06/19/2023 14:16 Note Text: [facility] [place] [phone] or [phone] [facility] C O N F I D E N T I A L I N F O R M A T I O N -------- OPERATIVE REPORT Patient Name: Gail Almeida Date of : 1955 Log ID: [id number] Date: 06/18/2023 Surgeon:Yandel Daniel MD Resident Surgeon(s): [...] (more content not included)... Normal [facility] SURGICAL PATHOLOGYon CASE REPORT Normal [facility] Comment on above: Order Comment: Specruy espino Type: BLOOD SPECIMEN Ordering Facility: [facility] Address: [address] [place] [address] Result Comment: Surg [facility] Pathology Report Case: [id number] Authorizing Provider: Yandel Daniel MD Collected: 06/18/2023 01:50 PM Ordering Location: Admitting Received: 06/18/2023 02:57 PM Pathologist: Iliana Marti MD Specimens: A) - THYROID LOBE LEFT, Left substernal goiter B) - THYROID LOBE RIGHT, Right substernal goiter Performed By: #### 2 731-8 #### [facility] CLIA [id number] [facility] [place] [address] [place] CLINICAL HISTORY Normal [facility] Comment on above: Order Comment: Pio espino Type: BLOOD SPECIMEN Ordering Facility: [facility] Address: [address] [place] [address] Result Comment: 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 Normal [facility] Comment on above: Order Comment: Speci men Type: BLOOD SPECIMEN Ordering Facility: [facility] Address: [address] [place] [address] Performed By: #### 2 731-8 #### [facility] CLIA [id number] [address] OF [facility] FINAL DIAGNOSIS Normal [facility] Comment on above: Order Comment: Speci men Type: BLOOD SPECIMEN Ordering Facility: [facility] Address: [address] [place] [address] Result Comment: A,B. 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 - No parathyroid glands or lymph nodes were identified. - Negative for malignancy. Performed By: #### 2 731-8 #### [facility] CLIA [id number] [address] [place] [address] [place] FINAL PERFORMING LAB Normal [facility] Comment on above: Order Comment: Speci men Type: BLOOD SPECIMEN Ordering Facility: [facility] Address: [address] [place] [address] Result Comment: Diag nostic interpretation performed at [facility], [address] [place] [address] CLIA# [id number] Director Of Research: Adonis Dukes M.D. Performed By: #### 2 731-8 #### [facility] CLIA [id number] [facility] [place] [address] [place] GROSS DESCRIPTION Normal [facility] Comment on above: Order Comment: Speci men Type: BLOOD SPECIMEN Ordering Facility: [facility] Address: [address] [place] [address] Result Comment: A. T HYROID LOBE LEFT Labeled: Thyroid lobe left Specimen received: Formalin Specimen type: Total thyroidectomy without attached skeletal muscle, lymph nodes, AND / OR large vessels Oriented: No Weight: 154.35 g Size: 11.5 x 8.2 x 4.1 cm Left lobe: 8.2 7.2 x 4.1 cm Isthmus: 5.5 x 2.5 x 1.9 cm Ink code: Blue- External surface [place] - Isthmus Sectioning: The specimen is serially sectioned from superior to inferior. Number of discrete nodules: 0 Background thyroid parenchyma: Multicystic, fleshy containing hemorrhagic fluid with areas of calcification. Attached skeletal muscle: Not identified Attached lymph nodes: Not identified Attached parathyroid: Not identified Gross photograph: Yes Cassette Code: A1-A2: Bag Machine Helper sections from left thyroid lobe A3: Bag Machine Helper section of the isthmus Gross examination performed at [facility], [address] [place] [address] CLIA # [id number] 06/19/23 1:55 PM B. THYROID LOBE RIGHT Labeled: Thyroid lobe Right Specimen received: Formalin Specimen type: Total thyroidectomy without attached skeletal muscle, lymph nodes, AND / OR large vessels Oriented: No Weight: 75.2 g Size: Right lobe: 9.5 x 4.5 x 3.1 cm Ink code: Black- External surface [place] - Isthmus resection margin Sectioning: The specimen is serially sectioned from superior to inferior. Number of discrete nodules: 0 Background thyroid parenchyma: Multicystic, fleshy containing hemorrhagic fluid. Attached skeletal muscle: Not identified Attached lymph nodes: Not identified Attached parathyroid: Not identified Gross photograph: Yes Cassette Code: B1-B2: Bag Machine Helper sections of the right thyroid lobe Gross examination performed at [facility], [address] [place] [address] CLIA # [id number] 06/19/23 1:55 PM Performed By: #### 2 731-8 #### [facility] CLIA [id number] [address] [place] [address] [place] [address] [place] Basic metabolic 2000 panelon 05-30-2023 Anion gap [Moles/Vol] 10 mmol/L Normal 9-18 [facility] Comment on above: Order Comment: Speci men Type: BLOOD SPECIMEN Ordering Facility: [facility] Address: [address] [place] [address] Performed By: #### 2 4321-2 #### [facility] CLIA [id number] [address] [place] [address] [place] Calcium [Mass/Vol] 8.9 mg/dL Normal 8.5-10.2 [facility] Comment on above: Order Comment: Speci men Type: BLOOD SPECIMEN Ordering Facility: [facility] Address: [address] [place] [address] Performed By: #### 2 4321-2 #### [facility] IA [id number] [address] [place] [address] [place] Chloride [Moles/Vol] 105 mmol/L Normal 97-105 [facility] Comment on above: Order Comment: Speci men Type: BLOOD SPECIMEN Ordering Facility: [facility] Address: [address] [place] [address] Performed By: #### 2 4321-2 #### [facility] IA [id number] [address] [place] [address] [place] CO2 [Moles/Vol] 21 mmol/L Low 22-30 [facility] Comment on above: Order Comment: Speci men Type: BLOOD SPECIMEN Ordering Facility: [facility] Address: [address] [place] [address] Performed By: #### 2 4321-2 #### [facility] CLIA [id number] [address] [place] [address] [place] Creatinine [Mass/Vol] 1.03 mg/dL High 0.58-0.96 [facility] Comment on above: Order Comment: Speci men Type: BLOOD SPECIMEN Ordering Facility: [facility] Address: [address] [place] [address] Performed By: #### 2 4321-2 #### [facility] IA [id number] [address] [place] [address] [place] Creatinine and Glomerular filtration rate.predicted panel (S/P/Bld) 60 mL/min/1.73m??? Normal >=60 [facility] Comment on above: Order Comment: Pio espino Type: BLOOD SPECIMEN Ordering Facility: [facility] Address: [address] [place] [address] Result Comment: Leanna mated Glomerular Filtration Rate [...] 4321-2 #### [facility] CLIA [id number] [address] [facility] [place] [address] [place] Glucose [Mass/Vol] 96 mg/dL Normal 74-99 [facility] Comment on above: Order Comment: Pio espino Type: BLOOD SPECIMEN Ordering Facility: [facility] Address: [address] [place] [address] Result Comment: The [place] Diabetes Association (ADA) provides guidance for cutoff [...] Standards of Medical Care in Diabetes 2016, [place] Diabetes Association. Diabetes Care. 2016.39(Suppl 1). Performed By: #### 2 4321-2 #### [facility] CLIA [id number] [facility] [place] [address] [place] Potassium [Moles/Vol] 4.6 mmol/L Normal 3.7-5.1 [facility] Comment on above: Order Comment: Pio espino Type: BLOOD SPECIMEN Ordering Facility: [facility] Address: [address] [place] [address] Performed By: #### 2 4321-2 #### [facility] CLIA [id number] [address] [place] [address] [place] Sodium [Moles/Vol] 136 mmol/L Normal 136-144 [facility] Comment on above: Order Comment: Speci men Type: BLOOD SPECIMEN Ordering Facility: [facility] Address: [address] [place] [address] Performed By: #### 2 4321-2 #### [facility] CLIA [id number] [address] [place] [address] [place] Urea nitrogen [Mass/Vol] 28 mg/dL High 12-21 [facility] Comment on above: Order Comment: Speci men Type: BLOOD SPECIMEN Ordering Facility: [facility] Address: [address] [place] [address] Performed By: #### 2 4321-2 #### [facility] IA [id number] [address] [place] [address] [place] CBC panel Auto (Bld)on 05-30 Erythrocyte distribution width (RBC) [Ratio] 13.0 % Normal 11.5-15.0 [facility] Comment on above: Order Comment: Speci men Type: BLOOD SPECIMEN Ordering Facility: [facility] Address: [address] [place] [address] Performed By: #### 5 8410-2 #### [facility] CLIA [id number] [address] [place] [address] [place] Hematocrit (Bld) [Volume fraction] 38.6 % Normal 36.0-46.0 [facility] Comment on above: Order Comment: Speci men Type: BLOOD SPECIMEN Ordering Facility: [facility] Address: [address] [place] [address] Performed By: #### 5 8410-2 #### [facility] IA [id number] [address] [place] [address] [place] Hemoglobin (Bld) [Mass/Vol] 12.2 g/dL Normal 11.5-15.5 [facility] Comment on above: Order Comment: Speci men Type: BLOOD SPECIMEN Ordering Facility: [facility] Address: [address] [place] [address] Performed By: #### 5 8410-2 #### [facility] IA [id number] [address] [place] MCH (RBC) [Entitic mass] 31.3 pg Normal 26.0-34.0 [facility] Comment on above: Order Comment: Speci men Type: BLOOD SPECIMEN Ordering Facility: [facility] Address: [address] [place] [address] Performed By: #### 5 8410-2 #### [facility] IA [id number] [place] [address] [place] MCHC (RBC) [Mass/Vol] 31.6 g/dL Normal 30.5-36.0 [facility] Comment on above: Order Comment: Speci men Type: BLOOD SPECIMEN Ordering Facility: [facility] Address: [address] [place] [address] Performed By: #### 5 8410-2 #### [facility] IA [id number] [place] [address] [place] MCV (RBC) [Entitic vol] 99.0 fL Normal 80.0-100.0 [facility] Comment on above: Order Comment: Speci men Type: BLOOD SPECIMEN Ordering Facility: [facility] Address: [address] [place] [address] Performed By: #### 5 8410-2 #### [facility] IA [id number] [address] [place] Nucleated RBC (Bld) [#/Vol] 10*3/uL Normal <0.01 [facility] Comment on above: Order Comment: Speci men Type: BLOOD SPECIMEN Ordering Facility: [facility] Address: [address] [place] [address] Performed By: #### 5 8410-2 #### [facility] IA [id number] [address] [place] [address] [place] Platelet mean volume (Bld) [Entitic vol] 9.9 fL Normal 9.0-12.7 [facility] Comment on above: Order Comment: Speci men Type: BLOOD SPECIMEN Ordering Facility: [facility] Address: [address] [place] [address] Performed By: #### 5 8410-2 #### [facility] IA [id number] [address] [place] [address] [facility] [place] Platelets (Bld) [#/Vol] 254 10*3/uL Normal 150-400 [facility] Comment on above: Order Comment: Speci men Type: BLOOD SPECIMEN Ordering Facility: [facility] Address: [address] [place] [address] Performed By: #### 5 8410-2 #### [facility] [id number] [address] [place] [address] [place] RBC (Bld) [#/Vol] 3.90 10*6/uL Normal 3.90-5.20 [facility] Comment on above: Order Comment: Speci men Type: BLOOD SPECIMEN Ordering Facility: [facility] Address: [address] [place] [address] Performed By: #### 5 8410-2 #### [facility] [id number] [address] [place] [id number] [place] WBC (Bld) [#/Vol] 5.78 10*3/uL Normal 3.70-11.00 [facility] Comment on above: Order Comment: Christianoi men Type: BLOOD SPECIMEN Ordering Facility: [facility] Address: [address] [place] [address] Performed By: #### 5 8410-2 #### [facility] [id number] [address] [place] [id number] [facility] [place] CNOVon 05-30-2023 CNOV Office Visit (OTOLMN ) -------- GAIL ALMEIDA ([id number]) 1955 F Date Time Provider Department 05/30/23 1:00 PM YANDEL DANIEL OTOLFL During your visit today, we recorded the [...] by mouth every 12 hours as needed. oqfmyn-nhdihprs-ptqghwx (ENZADYNE) 9,000-112,500- 112,500 unit capsule Take 1 [...] (more content not included)... Normal [facility] CT NECK SOFT TISSUE W IVCONo n 05-30-2023 CT NECK SOFT TISSUE W IVCON * * *Final Report* * * DATE OF EXAM: May 30 2023 10:30AM [facility] 0013 - CT NECK SOFT TISSUE W [...] is no lymphadenopathy or soft tissue mass Continuity Tester (topogram) images: No additional findings. IMPRESSION: LARGE GOITER DETAILED Loading Checker: MAVERICK Transcribe Date/Time: May 30 2023 11:42A Dictated by : JOBY VILLAFUERTE MD This examination was interpreted and the report reviewed and electronically signed by: JOBY VILLAFUERTE MD on May 30 2023 11:47AM EST [id number] Normal [facility] HISTORY PHYSICALon 3 HISTORY PHYSICAL HNO ID: [id number] Author: Kristen Avalos PA-C Service: ? Author Type: Physician Lumpia Wrapper Maker Type: HANDP Filed: 06/04/2023 1:48 PM Note [...] block. States she follows with cardiology in [place], [place], but patient poor historian so unable [...] Yes topiramate (more content not included)... Normal [facility] HbA1c (Bld)on 05-30-2023 Average glucose Estimated from glycated hemoglobin (Bld) [Mass/Vol] 100 mg/dL [facility] Comment on above: Order Comment: Speci men Type: BLOOD SPECIMEN Ordering Facility: [facility] Address: [address] [place] [address] Result Comment: eAG: (Estimated average glucose) is a calculated value from HgbA1c and is franchise sales representative of the average blood glucose level in the last 2-3 month period. Performed By: #### 5 5454-3 #### [facility] CLIA [id number] [address] [place], [place] [address] [place] [address] [place] HbA1c (Bld) [Mass fraction] 5.1 % Normal 4.3-5.6 [facility] Comment on above: Order Comment: Speci men Type: BLOOD SPECIMEN Ordering Facility: [facility] Address: [address] [place] [address] Result Comment: [place] Diabetes Association guidelines indicate that patients with HgbA1c in the range 5.7-6.4% are at increased risk for development of diabetes, and intervention by lifestyle modification may be beneficial. HgbA1c greater or equal to 6.5% is considered diagnostic of diabetes. Performed By: #### 5 5454-3 #### [facility] CLIA [id number] [address] [place] [address] [place] NURSING PROGon 05-30-2023 NURSING PROG HNO ID: [id number] Author: Rody Sher RN Service: Nursing Author [...] DATE: May 30, 2023 [facility]: 10[facility]13 [facility]OESGMN ) -------- GAIL ALMEIDA ([id number]) 1955 F Date Time Provider Department 04/11/23 [...] details please see patient questionnaire scanned into [employer]. History: No past medical history on file. [...] refer to the patient questionnaire scanned into [employer]. Physical Exam: Vitals - There were no [...] Patient bennie (more content not included)... Normal [facility] GAIL ALMEIDA ([id number]) 1955 F Date Time Provider Department 04/11/23 [...] mouth every 12 hours as needed. - rwdbvi-itwqpqrr-hednrrh (ENZADYNE) 9,000-112,500- 112,500 unit capsule Take 1 capsule by mouth daily with food. - nystatin (MYCOSTATIN) cream Apply to affected area two times a day. - OLANZapine (ZYPREXA) 5 mg tablet Take 5 mg by mouth every 12 hours as needed. Problem List As Of Date: 04/11/2023 (None) Encounter Status:Closed by RADHA BRICE on 04/11/23 [facility] Basophils Auto (Bld) [#/Vol] Ordered By: Mariana Pryor on 03-27-2023 Basophils (Bld) [#/Vol] 0.0 10*3/uL 0.0-0.2 [facility] Basophils/100 WBC Auto (Bld) Ordered By: Mariana Pryor on 03-27-2023 Basophils/100 WBC (Bld) 0.6 % . [facility] Calcium [Mass/volume] in Ser um or PlasmaOrdered By: Mariana Pryor on 03-27-2023 Calcium [Mass/Vol] 9.5 mg/dL 8.6-10.3 [facility] Carbon dioxide, total [Moles /volume] in Serum or PlasmaOrdered By: Mariana Pryor on 03-27-2023 CO2 [Moles/Vol] 19.3 mmol/L 21.0-31.0 [facility] Chloride [Moles/volume] in S kishan or PlasmaOrdered By: Mariana Pryor on 03-27-2023 Chloride [Moles/Vol] 115 mmol/L 98-107 [facility] Creatinine [Mass/volume] in Serum or PlasmaOrdered By: Mariana Pryor on 03-27-2023 Creatinine [Mass/Vol] 0.96 mg/dL 0.60-1.20 [facility] Eosinophils Auto (Bld) [#/Vo l]Ordered By: Mariana Pryor on 03-27-2023 Eosinophils (Bld) [#/Vol] 0.0 10*3/uL 0.0-0.45 [facility] Eosinophils/100 WBC Auto (Bl d)Ordered By: Mariana Pryor on 03-27-2023 Eosinophils/100 WBC (Bld) 0.4 % . [facility] Erythrocyte distribution wid th Auto (RBC) [Ratio]Ordered By: Mariana Guillaume on 03-27-2023 Erythrocyte distribution width (RBC) [Ratio] 13.2 % 11.9-15.3 [facility] Glucose [Mass/volume] in Ser um or PlasmaOrdered By: Mariana Pryor on 03-27-2023 Glucose [Mass/Vol] 110 mg/dL 70-100 [facility] Comment on above: ADA recommended refe rence rangeRandom Glucose Reference Range is dependent on time and content of last meal. Glucose of more than 200 mg/dL in a nonstressed, ambulatory subject supports the diagnosis of Diabetes Mellitus. Hematocrit Auto (Bld) [Volum e fraction]Ordered By: Mariana Pryor on 03-27-2023 Hematocrit (Bld) [Volume fraction] 34.1 % 34.0-46.4 [facility] Hemoglobin [Mass/volume] in BloodOrdered By: Mariana Pryor on 03-27-2023 Hemoglobin (Bld) [Mass/Vol] 11.5 g/dL 11.8-15.4 [facility] Leukocytes [#/volume] correc cornelia for nucleated erythrocytes in Blood by Automated counOrdered By: Mariana Pryor on 03-27-2023 WBC corrected for nucl RBC Auto (Bld) [#/Vol] 7.7 10*3/uL 3.8-11.6 [facility] Lymphocytes Auto (Bld) [#/Vo l]Ordered By: Mariana Pryor on 03-27-2023 Lymphocytes (Bld) [#/Vol] 1.2 10*3/uL 1.00-4.8 [facility] Lymphocytes/100 WBC Auto (Bl d)Ordered By: Mariana Pryor on 03-27-2023 Lymphocytes/100 WBC (Bld) 14.9 % . [facility] MCH Auto (RBC) [Entitic mass ]Ordered By: Mariana Pryor on 03-27-2023 MCH (RBC) [Entitic mass] 32.3 pg 24.7-34.3 [facility] MCHC Auto (RBC) [Mass/Vol]Or dered By: Mariana Pryor on 03-27-2023 MCHC (RBC) [Mass/Vol] 33.6 g/dL 32.0-35.0 [facility] MCV Auto (RBC) [Entitic vol] Ordered By: Mariana Pryor on 03-27-2023 MCV (RBC) [Entitic vol] 96.4 fL 80-100 [facility] Monocytes Auto (Bld) [#/Vol] Ordered By: Mariana Pryor on 03-27-2023 Monocytes (Bld) [#/Vol] 0.6 10*3/uL 0.0-0.8 [facility] Monocytes/100 WBC Auto (Bld) Ordered By: Mariana Pryor on 03-27-2023 Monocytes/100 WBC (Bld) 8.3 % . [facility] Neutrophils Auto (Bld) [#/Vo l]Ordered By: Mariana Pryor on 03-27-2023 Neutrophils (Bld) [#/Vol] 5.9 10*3/uL 1.8-7.7 [facility] Neutrophils/100 WBC Auto (Bl d)Ordered By: Mariana Pryor on 03-27-2023 Neutrophils/100 WBC (Bld) 75.8 % . [facility] No Panel InformationOrdered By: Mariana Pryor on 03-27-2023 Estimated GFR (CKD-EPI) > 60.0 mL/Min [facility] Creatinine Clearance (Chem 51.73 [facility] Nucleated erythrocytes [Pres ence] in Blood by Automated countOrdered By: Mariana Pryor on 03-27-2023 Nucleated RBC Auto Ql (Bld) 0.0 /100{WBC} 0-0.5 [facility] Platelet mean volume Auto (B ld) [Entitic vol]Ordered By: Mariana Pryor on 03-27-2023 Platelet mean volume (Bld) [Entitic vol] 8.5 fL 6.3-10.7 [facility] Platelets Auto (Bld) [#/Vol] Ordered By: Mariana Pryor on 03-27-2023 Platelets (Bld) [#/Vol] 201 10*3/uL 150-450 [facility] Potassium [Moles/volume] in Serum or PlasmaOrdered By: Mariana Pryor on 03-27-2023 Potassium [Moles/Vol] 4.0 mmol/L 3.5-5.1 [facility] RBC Auto (Bld) [#/Vol]Ordere d By: Mariana Pryor on 03-27-2023 RBC (Bld) [#/Vol] 3.54 10*6/uL 3.60-5.00 [facility] Serum or plasma anion gap de terminationOrdered By: Mariana Pryor on 03-27-2023 Anion gap [Moles/Vol] 11.7 mmol/L 6.0-15.0 [facility] Sodium [Moles/volume] in Ser um or PlasmaOrdered By: Mariana Pryor on 03-27-2023 Sodium [Moles/Vol] 142 mmol/L 136-145 [facility] Urea nitrogen [Mass/volume] in Serum or PlasmaOrdered By: Mariana Pryor on 03-27-2023 Urea nitrogen [Mass/Vol] 20 mg/dL 12-25 [facility] WBC Auto (Bld) [#/Vol]Ordere d By: Mariana Pryor on 03-27-2023 WBC (Bld) [#/Vol] 7.7 10*3/uL 3.8-11.6 [facility] Alanine aminotransferase [En zymatic activity/volume] in Serum or PlasmaOrdered By: Mariana Pryor on 03-26-2023 ALT [Catalytic activity/Vol] 18 U/L [facility] Albumin [Mass/volume] in Ser um or Plasma by Bromocresol green (BCG) dye binding methoOrdered By: Mariana Pryor on 03-26-2023 Albumin BCG dye [Mass/Vol] 4.1 g/dL 3.5-5.7 [facility] Alkaline phosphatase [Enzyma tic activity/volume] in Serum or PlasmaOrdered By: Mariana Pryor on 03-26-2023 ALP [Catalytic activity/Vol] 92 U/L 34-104 [facility] Aspartate aminotransferase [ Enzymatic activity/volume] in Serum or PlasmaOrdered By: Mariana Pryor on 03-26-2023 AST [Catalytic activity/Vol] 15 U/L 13-39 [facility] Automated erythrocytes count in urine sediment (number/area)Ordered By: Mariana Pryor on 03-26-2023 RBC Auto (Urine sed) [#/Area] None seen [HPF] 0-4 [facility] Automated leukocytes count i n urine sediment (number/area)Ordered By: Mariana Pryor on 03-26-2023 WBC Auto (Urine sed) [#/Area] 20-49 [HPF] 0-4 [facility] Bilirubin Auto test strip Ql (U)Ordered By: Mariana Pryor on 03-26-2023 Bilirubin Ql (U) Negative Negative [facility] Bilirubin.total [Mass/volume ] in Serum or PlasmaOrdered By: Mariana Pryor on 03-26-2023 Bilirubin [Mass/Vol] 0.4 mg/dL 0.3-1.0 [facility] Cholesterol [Mass/volume] in Serum or PlasmaOrdered By: Joe Davis on 03-26-2023 Cholesterol [Mass/Vol] 165 mg/dL 140-200 [facility] Comment on above: Chol less than 200 m g/dl low riskChol 201-239 mg/dl borderline riskChol 240 mg/dl and greater high risk Cholesterol in LDL Calc [Mas s/Vol]Ordered By: Joe Davis on 03-26-2023 Cholesterol in LDL [Mass/Vol] 95 mg/dL 0-100 [facility] Comment on above: LDL ATP III CLASSIFI CATIONLDL less than 100 mg/dL OptimalLDL 100-129 mg/dL Near or above optimalLDL 130-159 mg/dL Borderline highLDL 160-189 mg/dL HighLDL greater than 189 mg/dL Very high Cholesterol in VLDL Calc [Ma ss/Vol]Ordered By: Joe Davis on 03-26-2023 Cholesterol in VLDL [Mass/Vol] 17 mg/dL [facility] Globulin Calc (S) [Mass/Vol] Ordered By: Mariana Pryor on 03-26-2023 Globulin (S) [Mass/Vol] 2.4 g/dL [facility] Ketones Auto test strip (U) [Mass/Vol]Ordered By: Mariana Pryor on 03-26-2023 Ketones (U) [Mass/Vol] 1+ Negative [facility] - UrinalysisOrder ed By: Mariana Pryor on 03-26-2023 Hyaline casts LM Ql (Urine sed) None seen [LPF] 0-8 [facility] Lipase [Enzymatic activity/v olume] in Serum or PlasmaOrdered By: Mariana Pryor on 03-26-2023 Lipase [Catalytic activity/Vol] 11.0 U/L 11.0-82.0 [facility] [place] [Moles/volume] in Se rum or PlasmaOrdered By: Joe Davis on 03-26-2023 [place] [Moles/Vol] 0.20 mmol/L 0.60-1.20 [facility] Protein Auto test strip (U) [Mass/Vol]Ordered By: Mariana Pryor on 03-26-2023 Protein (U) [Mass/Vol] Negative Negative [facility] Protein [Mass/volume] in Ser um or PlasmaOrdered By: Mariana Pryor on 03-26-2023 Protein [Mass/Vol] 6.5 g/dL 6.4-8.9 [facility] Serum or plasma albumin/glob ulin mass ratioOrdered By: Mariana Pryor on 03-26-2023 Albumin/Globulin [Mass ratio] 1.7 {ratio} [facility] Serum or plasma high density lipoprotein (HDL) cholesterol measurementOrdered By: Joe Davis on 03-26-2023 Cholesterol in HDL [Mass/Vol] 53 mg/dL 23-92 [facility] Comment on above: HDL CHOL ATP-III CLA SSIFICATION Cardiovascular RiskHDL > or equal to 60 mg/dL LOWHDL < 40 mg/dL HIGH Serum or plasma total choles terol/high density lipoprotein (HDL) cholesterol mass ratOrdered By: Joe Davis on 03-26-2023 Cholesterol.total/Judy sterol in HDL [Mass ratio] 3.1 {ratio} <5.0 [facility] Squamous epithelial cells de tection in urine sediment by light microscopyOrdered By: Mariana Pryor on 03-26-2023 Epithelial cells.squamous LM Ql (Urine sed) 0-1 [HPF] 0-2 [facility] Thyrotropin [Units/volume] i n Serum or PlasmaOrdered By: Joe Davis on 03-26-2023 TSH Qn 0.42 m[IU]/L 0.45-5.33 [facility] Thyroxine (T4) free [Mass/vo lume] in Serum or PlasmaOrdered By: Joe Davis on 03-26-2023 Free T4 [Mass/Vol] 0.74 ng/dL 0.61-1.12 [facility] Triglyceride [Mass/volume] i n Serum or PlasmaOrdered By: Joe Davis on 03-26-2023 Triglyceride [Mass/Vol] 86 mg/dL 0-149 [facility] Comment on above: TRIG ATP III CLASSIF ICATIONTRIG less than 150 mg/dL NormalTRIG 150-199 mg/dL Borderline highTRIG 200-500 mg/dL High TRIG greater than 500 mg/dL Very highStandard traceable to the Center for Disease Conrtrol and Prevention (CDC) test method. Urine appearanceOrdered By: Mariana Pryor on 03-26-2023 Appearance (U) Clear Clear [facility] Urine bacteria detection by automated methodOrdered By: Mariana Pryor on 10-24-2023 Bacteria Auto Ql (U) None seen None Seen [facility] Urine colorOrdered By: Mariana Pryor on 03-26-2023 Color (U) Yellow Yellow [facility] Urine glucose measurement by automated test strip (mass/volume)Ordered By: Mariana Pryor on 03-26-2023 Glucose Auto test strip (U) [Mass/Vol] Normal mg/dL Normal [facility] Urine hemoglobin detection b y automated test stripOrdered By: Mariana Guillaume on 03-26-2023 Hemoglobin Auto test strip Ql (U) Trace Negative [facility] Urine leukocyte esterase det ection by automated test stripOrdered By: Mariana Pryor on 03-26-2023 Leukocyte esterase Auto test strip Ql (U) 3+ Negative [facility] Urine nitrite detection by a utomated test stripOrdered By: Mariana Pryor on 03-26-2023 Nitrite Auto test strip Ql (U) Negative Negative [facility] Urobilinogen Auto test strip (U) [Mass/Vol]Ordered By: Mariana Pryor on 03-26-2023 Urobilinogen (U) [Mass/Vol] Normal mg/dL Normal [facility] Vitamin D+Metabolites [Mass/ volume] in Serum or PlasmaOrdered By: Joe Davis on 03-26-2023 Vitamin D+Metabolites [Mass/Vol] 34.5 ng/mL 30-100 [facility] Comment on above: VITAMIN D STATUS 25( [place])VITAMIN D RANGE (ng/mL) Deficient <20 Insufficient 20 to <30Sufficient 30 to 100Reference: Lucio MF,Renée DRAKE, Francisco CARPIO, et al. Evaluation,treatment, and prevention of vitamin D deficiency; an Endocrine Society clinical practice guideline. JCEM. 2010; 96(7):1911-30. pH Auto test strip (U)Ordere d By: Mariana Pryor on 03-26-2023 pH (U) 1.010 [pH] 1.001-1.03 0 [facility] pH (U) 6.0 [pH] 5.0-9.0 [facility] Alanine aminotransferase [En zymatic activity/volume] in Serum or PlasmaOrdered By: Mariana Kee on 03-14-2023 ALT [Catalytic activity/Vol] 28 U/L 7-52 [facility] Albumin [Mass/volume] in Ser um or Plasma by Bromocresol green (BCG) dye binding methoOrdered By: Mariana Kee on 03-14-2023 Albumin BCG dye [Mass/Vol] 3.9 g/dL 3.5-5.7 [facility] Alkaline phosphatase [Enzyma tic activity/volume] in Serum or PlasmaOrdered By: Mariana Kee on 03-14-2023 ALP [Catalytic activity/Vol] 86 U/L 34-104 [facility] Aspartate aminotransferase [ Enzymatic activity/volume] in Serum or PlasmaOrdered By: Mariana Kee on 03-14-2023 AST [Catalytic activity/Vol] 18 U/L 13-39 [facility] Basophils Auto (Bld) [#/Vol] Ordered By: Mariana Kee on 03-14-2023 Basophils (Bld) [#/Vol] 0.1 10*3/uL 0.0-0.2 [facility] Basophils/100 WBC Auto (Bld) Ordered By: Mariana Kee on 03-14-2023 Basophils/100 WBC (Bld) 1.0 % . [facility] Bilirubin.total [Mass/volume ] in Serum or PlasmaOrdered By: Mariana Kee on 03-14-2023 Bilirubin [Mass/Vol] 0.3 mg/dL 0.3-1.0 [facility] Calcium [Mass/volume] in Ser um or PlasmaOrdered By: Mariana Kee on 03-14-2023 Calcium [Mass/Vol] 9.3 mg/dL 8.6-10.3 [facility] Carbon dioxide, total [Moles /volume] in Serum or PlasmaOrdered By: Mariana Kee on 03-14-2023 CO2 [Moles/Vol] 20.1 mmol/L 21.0-31.0 [facility] Chloride [Moles/volume] in S kishan or PlasmaOrdered By: Mariana Kee on 03-14-2023 Chloride [Moles/Vol] 116 mmol/L 98-107 [facility] Creatinine [Mass/volume] in Serum or PlasmaOrdered By: Mariana Kee on 03-14-2023 Creatinine [Mass/Vol] 1.01 mg/dL 0.60-1.20 [facility] Eosinophils Auto (Bld) [#/Vo l]Ordered By: Mariana Kee on 03-14-2023 Eosinophils (Bld) [#/Vol] 0.2 10*3/uL 0.0-0.45 [facility] Eosinophils/100 WBC Auto (Bl d)Ordered By: Mariana Kee on 03-14-2023 Eosinophils/100 WBC (Bld) 4.6 % . [facility] Erythrocyte distribution wid th Auto (RBC) [Ratio]Ordered By: Mariana Kee on 03-14-2023 Erythrocyte distribution width (RBC) [Ratio] 13.3 % 11.9-15.3 [facility] Globulin Calc (S) [Mass/Vol] Ordered By: Mariana Kee on 03-14-2023 Globulin (S) [Mass/Vol] 2.0 g/dL [facility] Glucose [Mass/volume] in Ser um or PlasmaOrdered By: Mariana Kee on 03-14-2023 Glucose [Mass/Vol] 101 mg/dL 70-100 [facility] Comment on above: ADA recommended refe rence rangeRandom Glucose Reference Range is dependent on time and content of last meal. Glucose of more than 200 mg/dL in a nonstressed, ambulatory subject supports the diagnosis of Diabetes Mellitus. Hematocrit Auto (Bld) [Volum e fraction]Ordered By: Mariana Kee on 03-14-2023 Hematocrit (Bld) [Volume fraction] 37.4 % 34.0-46.4 [facility] Hemoglobin [Mass/volume] in BloodOrdered By: Mariana Kee on 03-14-2023 Hemoglobin (Bld) [Mass/Vol] 12.5 g/dL 11.8-15.4 [facility] Leukocytes [#/volume] correc cornelia for nucleated erythrocytes in Blood by Automated counOrdered By: Mariana Kee on 03-14-2023 WBC corrected for nucl RBC Auto (Bld) [#/Vol] 5.2 10*3/uL 3.8-11.6 [facility] Lipase [Enzymatic activity/v olume] in Serum or PlasmaOrdered By: Mariana Kee on 03-14-2023 Lipase [Catalytic activity/Vol] 21.0 U/L 11.0-82.0 [facility] Lymphocytes Auto (Bld) [#/Vo l]Ordered By: Mariana Kee on 03-14-2023 Lymphocytes (Bld) [#/Vol] 1.9 10*3/uL 1.00-4.8 [facility] Lymphocytes/100 WBC Auto (Bl d)Ordered By: Mariana Kee on 03-14-2023 Lymphocytes/100 WBC (Bld) 37.2 % . [facility] MCH Auto (RBC) [Entitic mass ]Ordered By: Mariana Kee on 03-14-2023 MCH (RBC) [Entitic mass] 31.9 pg 24.7-34.3 [facility] MCHC Auto (RBC) [Mass/Vol]Or dered By: Mariana Kee on 03-14-2023 MCHC (RBC) [Mass/Vol] 33.5 g/dL 32.0-35.0 [facility] MCV Auto (RBC) [Entitic vol] Ordered By: Mariana Kee on 03-14-2023 MCV (RBC) [Entitic vol] 95.2 fL 80-100 [facility] Monocytes Auto (Bld) [#/Vol] Ordered By: Mariana Kee on 03-14-2023 Monocytes (Bld) [#/Vol] 0.6 10*3/uL 0.0-0.8 [facility] Monocytes/100 WBC Auto (Bld) Ordered By: Mariana Kee on 03-14-2023 Monocytes/100 WBC (Bld) 11.5 % . [facility] Neutrophils Auto (Bld) [#/Vo l]Ordered By: Mariana Kee on 03-14-2023 Neutrophils (Bld) [#/Vol] 2.4 10*3/uL 1.8-7.7 [facility] Neutrophils/100 WBC Auto (Bl d)Ordered By: Mariana Kee on 03-14-2023 Neutrophils/100 WBC (Bld) 45.7 % . [facility] No Panel InformationOrdered By: Mariana Kee on 03-14-2023 Estimated GFR (CKD-EPI) > 60.0 mL/Min [facility] Creatinine Clearance (Chem 49.17 [facility] Nucleated erythrocytes [Pres ence] in Blood by Automated countOrdered By: Mariana Kee on 03-14-2023 Nucleated RBC Auto Ql (Bld) 0.1 /100{WBC} 0-0.5 [facility] Platelet mean volume Auto (B ld) [Entitic vol]Ordered By: Mariana Kee on 03-14-2023 Platelet mean volume (Bld) [Entitic vol] 8.7 fL 6.3-10.7 [facility] Platelets Auto (Bld) [#/Vol] Ordered By: Mariana Kee on 03-14-2023 Platelets (Bld) [#/Vol] 212 10*3/uL 150-450 [facility] Potassium [Moles/volume] in Serum or PlasmaOrdered By: Mariana Kee on 03-14-2023 Potassium [Moles/Vol] 4.2 mmol/L 3.5-5.1 [facility] Protein [Mass/volume] in Ser um or PlasmaOrdered By: Mariana Kee on 03-14-2023 Protein [Mass/Vol] 5.9 g/dL 6.4-8.9 [facility] RBC Auto (Bld) [#/Vol]Ordere d By: Mariana Kee on 03-14-2023 RBC (Bld) [#/Vol] 3.93 10*6/uL 3.60-5.00 [facility] Serum or plasma albumin/glob ulin mass ratioOrdered By: Mariana Kee on 03-14-2023 Albumin/Globulin [Mass ratio] 2.0 {ratio} [facility] Serum or plasma anion gap de terminationOrdered By: Mariana Kee on 03-14-2023 Anion gap [Moles/Vol] 9.1 mmol/L 6.0-15.0 [facility] Sodium [Moles/volume] in Ser um or PlasmaOrdered By: Mariana Kee on 03-14-2023 Sodium [Moles/Vol] 141 mmol/L 136-145 [facility] Urea nitrogen [Mass/volume] in Serum or PlasmaOrdered By: Mariana Kee on 03-14-2023 Urea nitrogen [Mass/Vol] 30 mg/dL 7-25 [facility] WBC Auto (Bld) [#/Vol]Ordere d By: Mariana Kee on 03-14-2023 WBC (Bld) [#/Vol] 5.2 10*3/uL 3.8-11.6 [facility] Automated erythrocytes count in urine sediment (number/area)Ordered By: Joe Davis on 03-12-2023 RBC Auto (Urine sed) [#/Area] 0-1 [HPF] 0-4 [facility] Automated leukocytes count i n urine sediment (number/area)Ordered By: Joe Dvais on 03-12-2023 WBC Auto (Urine sed) [#/Area] 20-49 [HPF] 0-4 [facility] Bilirubin Test strip Ql (U)O rdered By: Joe Davis on 03-12-2023 Bilirubin Ql (U) Negative Negative [facility] Cholesterol [Mass/volume] in Serum or PlasmaOrdered By: Joe Davis on 03-12-2023 Cholesterol [Mass/Vol] 162 mg/dL 140-200 [facility] Comment on above: Chol less than 200 m g/dl low riskChol 201-239 mg/dl borderline riskChol 240 mg/dl and greater high risk Cholesterol in LDL Calc [Mas s/Vol]Ordered By: Joe Davis on 03-12-2023 Cholesterol in LDL [Mass/Vol] 95 mg/dL 0-100 [facility] Comment on above: LDL ATP III CLASSIFI CATIONLDL less than 100 mg/dL OptimalLDL 100-129 mg/dL Near or above optimalLDL 130-159 mg/dL Borderline highLDL 160-189 mg/dL HighLDL greater than 189 mg/dL Very high Cholesterol in VLDL Calc [Ma ss/Vol]Ordered By: Joe Davis on 03-12-2023 Cholesterol in VLDL [Mass/Vol] 15 mg/dL [facility] Color Auto (U)Ordered By: Ab sofia Davis on 03-12-2023 Color (U) Yellow Yellow [facility] Ketones Auto test strip (U) [Mass/Vol]Ordered By: Joe Davis on 03-12-2023 Ketones (U) [Mass/Vol] Negative Negative Fi [facility] - UrinalysisOrder ed By: Joe Davis on 03-12-2023 Hyaline casts LM Ql (Urine sed) 0-8 [LPF] 0-8 [facility] Nitrite Test strip Ql (U)Ord ered By: Joe Davis on 03-12-2023 Nitrite Ql (U) Negative Negative [facility] Protein Auto test strip (U) [Mass/Vol]Ordered By: Joe Davis on 03-12-2023 Protein (U) [Mass/Vol] Negative Negative [facility] Serum or plasma high density lipoprotein (HDL) cholesterol measurementOrdered By: oJe Davis on 03-12-2023 Cholesterol in HDL [Mass/Vol] 52 mg/dL 23-92 [facility] Comment on above: HDL CHOL ATP-III CLA SSIFICATION Cardiovascular RiskHDL > or equal to 60 mg/dL LOWHDL < 40 mg/dL HIGH Serum or plasma total choles terol/high density lipoprotein (HDL) cholesterol mass ratOrdered By: Joe Davis on 03-12-2023 Cholesterol.total/Judy sterol in HDL [Mass ratio] 3.1 {ratio} <5.0 [facility] Specific gravity Auto test s trip (U) [Rel density]Ordered By: Joe Davis on 03-12-2023 Specific gravity (U) [Rel density] 1.006 1.001-1.03 0 [facility] Squamous epithelial cells de tection in urine sediment by light microscopyOrdered By: Joe Davis on 03-12-2023 Epithelial cells.squamous LM Ql (Urine sed) 0-1 [HPF] 0-2 [facility] Thyrotropin [Units/volume] i n Serum or PlasmaOrdered By: Joe Davis on 03-12-2023 TSH Qn 0.91 m[IU]/L 0.45-5.33 [facility] Triglyceride [Mass/volume] i n Serum or PlasmaOrdered By: Joe Davis on 03-12-2023 Triglyceride [Mass/Vol] 76 mg/dL 0-149 [facility] Comment on above: TRIG ATP III CLASSIF ICATIONTRIG less than 150 mg/dL NormalTRIG 150-199 mg/dL Borderline highTRIG 200-500 mg/dL High TRIG greater than 500 mg/dL Very highStandard traceable to the Center for Disease Conrtrol and Prevention (CDC) test method. Urine bacteria detection by automated methodOrdered By: Joe Davis on 03-12-2023 Bacteria Auto Ql (U) None seen None Seen [facility] Urine clarity by refractomet ry automatedOrdered By: Joe Davis on 03-12-2023 Clarity Refractometry automated (U) Clear Clear [facility] Urine culture routineOrdered By: Joe Davis on 03-12-2023 Bacteria identified Cx Nom (U) bacilli - 2 Days [facility] Urine glucose measurement by automated test strip (mass/volume)Ordered By: Joe Davis on 03-12-2023 Glucose Auto test strip (U) [Mass/Vol] Normal mg/dL Normal [facility] Urine hemoglobin detection b y automated test stripOrdered By: Joe Davis on 03-12-2023 Hemoglobin Auto test strip Ql (U) Negative Negative [facility] Urine leukocyte esterase det ection by automated test stripOrdered By: Joe Davis on 03-12-2023 Leukocyte esterase Auto test strip Ql (U) 4+ Negative [facility] Urobilinogen Auto test strip (U) [Mass/Vol]Ordered By: Joe Davis on 03-12-2023 Urobilinogen (U) [Mass/Vol] Normal mg/dL Normal [facility] Vitamin D+Metabolites [Mass/ volume] in Serum or PlasmaOrdered By: Joe Davis on 03-12-2023 Vitamin D+Metabolites [Mass/Vol] 28.1 ng/mL 30-100 [facility] Comment on above: VITAMIN D STATUS 25( [place])VITAMIN D RANGE (ng/mL) Deficient <20 Insufficient 20 to <30Sufficient 30 to 100Reference: Lucio MF,Renée NC, Francisco CARPIO, et al. Evaluation,treatment, and prevention of vitamin D deficiency; an Endocrine Society clinical practice guideline. JCEM. 2010; 96(7):1911-30. pH Auto test strip (U)Ordere d By: Joe Davis on 03-12-2023 pH (U) 7.0 [pH] 5.0-9.0 [facility] [place] [Moles/volume] in Se rum or PlasmaOrdered By: NON STAFF on 03-11-2023 [place] [Moles/Vol] 0.50 mmol/L 0.60-1.20 [facility] XR shoulder RT min 2V*on XR shoulder RT min 2V* [facility] [employer] Other XR shoulder RT min 2V* [facility] [employer] Other XR shoulder RT min 2V* [address] [place] [address] [employer] Other XR shoulder RT min 2V* [place] [address] [facility] [employer] Other XR shoulder RT min 2V* XRay Report N [facility] [employer] Other XR shoulder RT min 2V* Signed No rt [employer] Other XR shoulder RT min 2V* Patient: Mary Anne Almeida MR#: [id number] [facility] [employer] Other XR shoulder RT min 2V* 250 No rt [employer] Other XR shoulder RT min 2V* : 1955 Acct:[id number] [facility] [employer] Other XR shoulder RT min 2V* Age/Sex: 67 / F A DM Date: 12/12/22 [employer] Other XR shoulder RT min 2V* [place] [facility] [place]pe: [facility] [employer] Other XR shoulder RT min 2V* Attending Dr: Neftali Adame DO [employer] Other XR shoulder RT min 2V* Copies to: Emory Adame DO [employer] Other XR shoulder RT min 2V* Ordering Provider : Emory Adame DO [employer] Other XR shoulder RT min 2V* Date of Service: 12/12/22 [employer] Other XR shoulder RT min 2V* XR/XR shoulder RT min 2V*: Other closed displaced fracture of proximal [employer] Other XR shoulder RT min 2V* end of right hum [employer] Other XR shoulder RT min 2V* XR shoulder RT mi n 2V* 12/12/2022 1:42 PM [employer] Other XR shoulder RT min 2V* SIGNS AND SYMPTOM S: Status post right proximal humerus fracture, hardware fixation, follow-up [employer] Other XR shoulder RT min 2V* PROTOCOL: Frontal , Grashey, and scapular Y views of the right shoulder. [employer] Other XR shoulder RT min 2V* COMPARISON: 10/31/2022 [employer] Other XR shoulder RT min 2V* FINDINGS: No [employer] Other XR shoulder RT min 2V* There is hardware fixation of the right humeral head and proximal humeral shaft. There is no [employer] Other XR shoulder RT min 2V* hardware complica tion. There are bony fragments within the rotator interval which have migrated the [employer] Other XR shoulder RT min 2V* prior exam. The acromioclavicular joint and glenohumeral joint are preserved. The visualized right [employer] Other XR shoulder RT min 2V* hemithorax is la ssly intact. [employer] Other XR shoulder RT min 2V* 7 XR/XR shoulder RT min 2V* [employer] Other XR shoulder RT min 2V* IMPRESSION: N [employer] Other XR shoulder RT min 2V* hardware complication. [employer] Other XR shoulder RT min 2V* There are bony fr agments within the rotator interval which have migrated the prior exam. [employer] Other XR shoulder RT min 2V* Impression dictat ed by: Janis Jett M.D.12/12/2022 4:03 PM [employer] Other XR shoulder RT min 2V* Dictation Locatio n: [facility]-12 [employer] Other XR shoulder RT min 2V* Transcribed By: Alpa DUVALL 12/12/22 [facility] [employer] Other XR shoulder RT min 2V* Dictated By: Janis Jett II, MD 12/12/22 1600 [employer] Other XR shoulder RT min 2V* Signed By: No rt [employer] Other XR shoulder RT min 2V* 12/12/22 1603 [employer] Other XR shoulder RT min 2V*on XR shoulder RT min 2V* [facility] [employer] Other XR shoulder RT min 2V* [facility] [place] [employer] Other XR shoulder RT min 2V* [address] [place] [address] [employer] Other XR shoulder RT min 2V* [place] [address] [employer] Other XR shoulder RT min 2V* XRay Report N [facility] [employer] Other XR shoulder RT min 2V* Signed No rt [employer] Other XR shoulder RT min 2V* Patient: Mary Anne Almeida MR#: [id number] [place] [employer] Other XR shoulder RT min 2V* 250 No rt [employer] Other XR shoulder RT min 2V* : 1955 Acct:[id number] [employer] Other XR shoulder RT min 2V* Age/Sex: 67 / F A DM Date: 10/31/22 [employer] Other XR shoulder RT min 2V* Loc: [facility] Room: T ype: [facility] [employer] Other XR shoulder RT min 2V* Attending Dr: Neftali Adame DO [employer] Other XR shoulder RT min 2V* Copies to: Emory Adame DO [employer] Other XR shoulder RT min 2V* Ordering Provider : Emory Adame DO [employer] Other XR shoulder RT min 2V* Date of Service: 10/31/22 [employer] Other XR shoulder RT min 2V* XR/XR shoulder RT min 2V*: Other closed displaced fracture of proximal [employer] Other XR shoulder RT min 2V* end of right hum [employer] Other XR shoulder RT min 2V* RIGHT SHOULDER - - 3 views [employer] Other XR shoulder RT min 2V* CLINICAL HISTORY: ORIF right humerus [employer] Other XR shoulder RT min 2V* COMPARISON: Right shoulder 10/03/2022 [employer] Other XR shoulder RT min 2V* FINDINGS: No rt [employer] Other XR shoulder RT min 2V* Hardware fixation is seen involving the right humeral neck without evidence of hardware [employer] Other XR shoulder RT min 2V* complication. Fragmentation versus callus formation is noted involving the greater tubercle [employer] Other XR shoulder RT min 2V* possibly represen ting healing response. [employer] Other XR shoulder RT min 2V* 1 XR/XR shoulder RT min 2V* [employer] Other XR shoulder RT min 2V* IMPRESSION: N [facility] [employer] Other XR shoulder RT min 2V* FRAGMENTATION PETER HARRY CALCIFIED FORMATION IS NOTED INVOLVING THE GREATER TUBERCLE POSSIBLY [employer] Other XR shoulder RT min 2V* REPRESENTING HEAL ING RESPONSE. FOLLOW-UP IS RECOMMENDED.. [employer] Other XR shoulder RT min 2V* Impression dictat ed by: Yandel Lees Jr., D.O.10/31/2022 4:06 PM [employer] Other XR shoulder RT min 2V* Dictation Locatio n: [facility]-PC-08 [employer] Other XR shoulder RT min 2V* Transcribed By: Alpa DUVALL 10/31/22 160 [employer] Other XR shoulder RT min 2V* Dictated By: Isrrael Lees Jr, DO 10/31/22 160 [employer] Other XR shoulder RT min 2V* Signed By: [facility] [employer] Other XR shoulder RT min 2V* 10/31/22 1606 [employer] Other LITHIUMon 10-27-2022 [place] (Eskalith(R)), Serum 0.9 mmol/L Normal 0.5-1.2 [facility] Comment on above: Result Comment: A co ncentration of 0.5-0.8 mmol/L is advised for long-term use; concentrations of up to 1.2 mmol/L may be necessary during acute treatment. Detection Limit = 0.1 <0.1 indicates None Detected Performed By: #### L ITHIUM #### [facility] [address] [address] [address] Beny Johnson CREATININEon 10-26-2022 Creatinine [Mass/Vol] 1.43 mg/dL Critically high 0.55-1.02 [facility] Comment on above: Performed By: #### T SH, CREA #### [facility] [address] [place] [address] Dr. Beny Johnson EGFR-AF MICRONESIAN 45 mL/min/1.73m2 Critically low >=60 [facility] Comment on above: Performed By: #### T SH, CREA #### [facility] [address] [address] [address] Beny Johnson EGFR-NON AF MICRONESIAN 37 mL/min/1.73m2 Critically low >=60 [facility] Comment on above: Performed By: #### T SH, CREA #### [facility] [address] [place] [address] Dr. Beny Johnson TSHon 10-26-2022 TSH 1.213 uIU/mL Normal 0.358-3.74 0 [facility] Comment on above: Performed By: #### T SH, CREA #### [facility] [address] [place] [address] Dr. Beny Johnson Hematocrit Auto (Bld) [Volum e fraction]Ordered By: Emory Adame on 09-13-2022 Hematocrit (Bld) [Volume fraction] 36.3 % 34.0-46.4 [facility] Hemoglobin [Mass/volume] in BloodOrdered By: Emory Adame on 09-13-2022 Hemoglobin (Bld) [Mass/Vol] 11.6 g/dL 11.8-15.4 [facility] Basophils Auto (Bld) [#/Vol] Ordered By: Emory Adame on 09-11-2022 Basophils (Bld) [#/Vol] 0.1 10*3/uL 0.0-0.2 [facility] Basophils/100 WBC Auto (Bld) Ordered By: Emory Adame on 09-11-2022 Basophils/100 WBC (Bld) 0.9 % . [facility] Calcium [Mass/volume] in Ser um or PlasmaOrdered By: Emory Adame on 09-11-2022 Calcium [Mass/Vol] 10.4 mg/dL 8.6-10.3 [facility] Carbon dioxide, total [Moles /volume] in Serum or PlasmaOrdered By: Emory Adame on 09-11-2022 CO2 [Moles/Vol] 22.2 mmol/L 21.0-31.0 [facility] Chloride [Moles/volume] in S kishan or PlasmaOrdered By: Emory Adame on 09-11-2022 Chloride [Moles/Vol] 113 mmol/L 98-107 [facility] Creatinine [Mass/volume] in Serum or PlasmaOrdered By: Emroy Adame on 09-11-2022 Creatinine [Mass/Vol] 1.06 mg/dL 0.60-1.20 [facility] Eosinophils Auto (Bld) [#/Vo l]Ordered By: Emory Adame on 09-11-2022 Eosinophils (Bld) [#/Vol] 0.1 10*3/uL 0.0-0.45 [facility] Eosinophils/100 WBC Auto (Bl d)Ordered By: Emory Adame on 09-11-2022 Eosinophils/100 WBC (Bld) 1.8 % . [facility] Erythrocyte distribution wid th Auto (RBC) [Ratio]Ordered By: Emory Adame on 09-11-2022 Erythrocyte distribution width (RBC) [Ratio] 13.8 % 11.9-15.3 [facility] Glucose [Mass/volume] in Ser um or PlasmaOrdered By: Emory Adame on 09-11-2022 Glucose [Mass/Vol] 113 mg/dL 70-100 [facility] Comment on above: ADA recommended refe rence rangeRandom Glucose Reference Range is dependent on time and content of last meal. Glucose of more than 200 mg/dL in a nonstressed, ambulatory subject supports the diagnosis of Diabetes Mellitus. Hematocrit Auto (Bld) [Volum e fraction]Ordered By: Emory Adame on 09-11-2022 Hematocrit (Bld) [Volume fraction] 36.8 % 34.0-46.4 [facility] Hemoglobin [Mass/volume] in BloodOrdered By: Emory Adame on 09-11-2022 Hemoglobin (Bld) [Mass/Vol] 12.2 g/dL 11.8-15.4 [facility] Leukocytes [#/volume] correc cornelia for nucleated erythrocytes in Blood by Automated counOrdered By: Emory Adame on 09-11-2022 WBC corrected for nucl RBC Auto (Bld) [#/Vol] 5.9 10*3/uL 3.8-11.6 [facility] Lymphocytes Auto (Bld) [#/Vo l]Ordered By: Emory Adame on 09-11-2022 Lymphocytes (Bld) [#/Vol] 1.1 10*3/uL 1.00-4.8 [facility] Lymphocytes/100 WBC Auto (Bl d)Ordered By: Emory Adame on 09-11-2022 Lymphocytes/100 WBC (Bld) 19.4 % . [facility] MCH Auto (RBC) [Entitic mass ]Ordered By: Emory Adame on 09-11-2022 MCH (RBC) [Entitic mass] 31.8 pg 24.7-34.3 [facility] MCHC Auto (RBC) [Mass/Vol]Or dered By: Emory Adame on 09-11-2022 MCHC (RBC) [Mass/Vol] 33.2 g/dL 32.0-35.0 [facility] MCV Auto (RBC) [Entitic vol] Ordered By: Emory Adame on 09-11-2022 MCV (RBC) [Entitic vol] 95.7 fL 80-100 [facility] Monocytes Auto (Bld) [#/Vol] Ordered By: Emory Adame on 09-11-2022 Monocytes (Bld) [#/Vol] 0.5 10*3/uL 0.0-0.8 [facility] Monocytes/100 WBC Auto (Bld) Ordered By: Emory Adame on 09-11-2022 Monocytes/100 WBC (Bld) 8.0 % . [facility] Neutrophils Auto (Bld) [#/Vo l]Ordered By: Emory Adame on 09-11-2022 Neutrophils (Bld) [#/Vol] 4.1 10*3/uL 1.8-7.7 [facility] Neutrophils/100 WBC Auto (Bl d)Ordered By: Emory Adame on 09-11-2022 Neutrophils/100 WBC (Bld) 69.9 % . [facility] No Panel InformationOrdered By: Emory Adame on 09-11-2022 Estimated GFR (CKD-EPI) 58.298 mL/Min [facility] Creatinine Clearance (Chem N/A [facility] Nucleated erythrocytes [Pres ence] in Blood by Automated countOrdered By: Emory Adame on 09-11-2022 Nucleated RBC Auto Ql (Bld) 0.1 /100{WBC} 0-0.5 [facility] Platelet mean volume Auto (B ld) [Entitic vol]Ordered By: Emory Adame on 09-11-2022 Platelet mean volume (Bld) [Entitic vol] 8.1 fL 6.3-10.7 [facility] Platelets Auto (Bld) [#/Vol] Ordered By: Emory Adame on 09-11-2022 Platelets (Bld) [#/Vol] 303 10*3/uL 150-450 [facility] Potassium [Moles/volume] in Serum or PlasmaOrdered By: Emory Adame on 09-11-2022 Potassium [Moles/Vol] 4.8 mmol/L 3.5-5.1 [facility] RBC Auto (Bld) [#/Vol]Ordere d By: Emory Adame on 09-11-2022 RBC (Bld) [#/Vol] 3.85 10*6/uL 3.60-5.00 [facility] Serum or plasma anion gap de terminationOrdered By: Emory Adame on 09-11-2022 Anion gap [Moles/Vol] 11.6 mmol/L 6.0-15.0 [facility] Sodium [Moles/volume] in Ser um or PlasmaOrdered By: Emory Adame on 09-11-2022 Sodium [Moles/Vol] 142 mmol/L 136-145 [facility] Urea nitrogen [Mass/volume] in Serum or PlasmaOrdered By: Emory Adame on 09-11-2022 Urea nitrogen [Mass/Vol] 24 mg/dL 7-25 [facility] WBC Auto (Bld) [#/Vol]Ordere d By: Emory Adame on 09-11-2022 WBC (Bld) [#/Vol] 5.9 10*3/uL 3.8-11.6 [facility] XR shoulder RT min 2V*on XR shoulder RT min 2V* [facility] [employer] Other XR shoulder RT min 2V* [facility] [employer] Other XR shoulder RT min 2V* [address] [place] [address] [employer] Other XR shoulder RT min 2V* [place] [address] [employer] [facility] [employer] Other XR shoulder RT min 2V* XRay Report N [facility] [employer] Other XR shoulder RT min 2V* Signed No rt [employer] Other XR shoulder RT min 2V* Patient: Mary Anne Almeida MR#: [id number] [facility] [employer] Other XR shoulder RT min 2V* 250 No rt [employer] Other XR shoulder RT min 2V* : 1955 Acct:[id number] [employer] Other XR shoulder RT min 2V* Age/Sex: 66 / F A DM Date: 09/10/22 [employer] Other XR shoulder RT min 2V* Loc: [facility]XD Room: T ype: REG [facility] [employer] Other XR shoulder RT min 2V* Attending Dr: Neftali Adame DO [employer] Other XR shoulder RT min 2V* Copies to: Emory Adame, [employer] Other XR shoulder RT min 2V* Ordering Provider : Emory Adame DO [employer] Other XR shoulder RT min 2V* Date of Service: 09/10/22 [employer] Other XR shoulder RT min 2V* XR/XR shoulder RT min 2V*: Acute pain of right shoulder [employer] Other XR shoulder RT min 2V* RIGHT SHOULDER - - 3 views [employer] Other XR shoulder RT min 2V* CLINICAL HISTORY: Proximal right humerus fracture continued pain. [employer] Other XR shoulder RT min 2V* COMPARISON: Right shoulder 09/06/2022 [employer] Other XR shoulder RT min 2V* FINDINGS: No [employer] Other XR shoulder RT min 2V* Greater tuberosit y fracture is once again demonstrated grossly unchanged in alignment when compared [employer] Other XR shoulder RT min 2V* to the prior stud y. Sclerosis is seen involving the fracture site suggestive of healing response. AC [employer] Other XR shoulder RT min 2V* joint appears intact. [employer] Other XR shoulder RT min 2V* 3 XR/XR shoulder RT min 2V* [employer] Other XR shoulder RT min 2V* IMPRESSION: N [employer] Other XR shoulder RT min 2V* SCLEROSIS IS SEEN AT THE GREATER TUBEROSITY FRACTURE SITE SUGGESTIVE OF HEALING RESPONSE. NO CHANGE [employer] Other XR shoulder RT min 2V* IN ALIGNMENT. [employer] Other XR shoulder RT min 2V* Impression dictat ed by: Yandel Lees Jr., D.O.09/10/2022 12:18 PM [employer] Other XR shoulder RT min 2V* Dictation Locatio n: RADIO-PC-12 [employer] Other XR shoulder RT min 2V* Transcribed By: Alpa DUVALL 09/10/22 [facility] [employer] Other XR shoulder RT min 2V* Dictated By: Isrrael Lees Jr, 09/10/22 [facility] [employer] Other XR shoulder RT min 2V* Signed By: Millicent rt [employer] Other XR shoulder RT min 2V* 09/10/22 [facility] [employer] Other XR SHOULDER RT 1 Von 09-06-2 [...] HÉCTOR HO Date: 2022-09-06 15:02 Normal [facility] [place] XR SHOULDER RT 1 V EXAM: XR [...] HÉCTOR HO Date: 2022-09-06 15:01 Normal [facility] [place] XR SHOULDER RT 1 V EXAM: XR [...] HÉCTOR HO Date: 2022-09-06 15:00 Normal [facility] [place] XR SHOULDER RT 1 V EXAM: XR SHOULDER RT 1 V HISTORY: Pain ; postreduction imaging COMPARISON: Prior shoulder x-rays from same date TECHNIQUE: FINDINGS: Humeral head is positioned inferior to the glenoid. Stable displaced fracture from the greater tuberosity. IMPRESSION: 1. Persistent anterior inferior glenohumeral dislocation and greater tuberosity fracture. Electronically authenticated by: HÉCTOR HO Date: 2022-09-06 14:56 Normal [facility] [place] XR SHOULDER RT 1 V EXAM: XR [...] HÉCTOR HO Date: 2022-09-06 14:55 Normal [facility] [place] LITHIUMon 08-23-2022 [place] (Eskalith(R)), Serum 0.9 mmol/L Normal 0.5-1.2 [facility] Comment on above: Result Comment: A co ncentration of 0.5-0.8 mmol/L is advised for long-term use; concentrations of up to 1.2 mmol/L may be necessary during acute treatment. Detection Limit = 0.1 <0.1 indicates None Detected Performed By: #### L ITHIUM ####[facility] [place] [address] [place] [address]Dr. Beny Johnson CREATININEon 08-22-2022 Creatinine [Mass/Vol] 1.17 mg/dL Critically high 0.55-1.02 [facility] Comment on above: Performed By: #### C ELA ####[facility] [place] [address] [address]Dr. Beny Johnson EGFR-AF MICRONESIAN 56 mL/min/1.73m2 Critically low >=60 [facility] [place] Comment on above: Performed By: #### C ELA ####[facility] [place] [address] [place], [place] [address]Dr. Beny Johnson EGFR-NON AF MICRONESIAN 46 mL/min/1.73m2 Critically low >=60 [facility] [place] Comment on above: Performed By: #### C ELA ####[facility] [place] [address] [place], [place] [address]Dr. Beny Johnson LITHIUMon 08-04-2022 [place] (Eskalith(R)), Serum 1.1 mmol/L Normal 0.5-1.2 [facility] [place] Comment on above: Result Comment: A co ncentration of 0.5-0.8 mmol/L is advised for long-term use; concentrations of up to 1.2 mmol/L may be necessary during acute treatment. Detection Limit = 0.1 <0.1 indicates None Detected Performed By: #### L ITHIUM ####[facility] [place] [address] [place], [place] [address]Dr. Beny Johnson CREATININEon 08-03-2022 Creatinine [Mass/Vol] 1.36 mg/dL Critically high 0.55-1.02 [facility] Comment on above: Performed By: #### C ELA, TSH ####[facility] [place] [address] [place], [place] [address]Dr. Beny Johnson EGFR-AF MICRONESIAN 47 mL/min/1.73m2 Critically low >=60 [facility] [place] Comment on above: Performed By: #### C ELA, TSH ####[facility] [place] [address] [place], [place] [address]Dr. Beny Johnson EGFR-NON AF MICRONESIAN 39 mL/min/1.73m2 Critically low >=60 [facility] [place] Comment on above: Performed By: #### C ELA, TSH ####[facility] [place] [address] [place], [place] [address]Dr. Beny Johnson TSHon 08-03-2022 TSH 0.901 uIU/mL Normal 0.358-3.74 0 [facility] [place] Comment on above: Performed By: #### C ELA, TSH ####[facility] [place] [address] [place], [place] [address]VsLore Johnson Outside Recordson 10-25-2021 Outside Records [id number]: 127 Normal [facility] Consent for Procedure/Surger yon 10-13-2021 Consent for Procedure/Surgery [id number] :127 Normal [facility] Creatinineon 08-01-2021 Creatinine [Mass/Vol] 0.98 mg/dL High 0.50 - 0.90 mg/dL [facility] GFR >60 >60 mL/min [facility] GFR Non- 57 mL/min Low >60 [facility] Interpretation and review of laboratory results Abnormal [facility] Laboratory - Chemistry and C hemistry - challengeon 08-01-2021 GFR/1.73 sq M.predicted MDRD (S/P/Bld) [Vol rate/Area] [facility] Comment on above: Average GFR for 60-6 9 years old: 85 mL/min/1.73sq m Chronic Kidney Disease: <60 mL/min/1.73sq m Kidney failure: <15 mL/min/1.73sq m eGFR calculated using average adult body mass. Additional eGFR calculator available at: http://www.Loog[employer].Com/multiple_crcl_2012.htm Stage 1: Some kidney damage normal GFR [...] signal along the mediastinum is likely benign. [facility] Radiology Study observation (narrative) [employer] Phone: MRI BREAST BILATERAL W CONTR ASTOrdered By: Dee Soto on 08-01-2021 [employer] Phone: LINDA ERYN DIGITAL DIAGNOSTIC BILATERALOrdered By: She Spencer on 11-11-2020 1. No mammographic evidence of malignancy. BIRADS: BIRADS - CATEGORY 2 Benign Findings. Normal interval follow-up is recommended in 12 months. OVERALL ASSESSMENT - BENIGN A letter of notification will be sent to the patient regarding the results. The [employer] recommends annual mammograms for women 40 years and older. [employer] Phone: EXAMINATION: DIAGNOS TIC DIGITAL BILATERAL BREASTS [...] dated June 08, 2020 is not visible. [employer] Phone: [place], [place] Incoming Radiant Results From [employer] - 11/11/2020 10:09 PM EDT EXAMINATION: DIAGNOSTIC [...] to the patient regarding the results. [employer] recommends annual mammograms for women 40 years and older. [employer] Phone: [employer] Phone: [place] Levelon 07-21-2020 [place] Date Last Dose NOT REPORTED [employer] Phone: [place] Dose Amount NOT REPORTED [facility] Work Phone: [place] Dose Time NOT REPORTED [facility] Work Phone: [place] Lvl 0.9 mmol/L 0.6 - 1.2 mmol/L [facility] Phone: Lipid Panelon 07-18-2020 Cholesterol [Mass/Vol] 151 mg/dL <200 [employer] Work Phone: Comment on above: Cholesterol Guidelines: <200 Desirable 200-240 Borderline >240 Undesirable Cholesterol in HDL [Mass/Vol] 42 mg/dL >40 [facility] Phone: Comment on above: HDL Guidelines: <40 Undesirable 40-59 Borderline >59 Desirable Cholesterol in LDL [Mass/Vol] 79 mg/dL 0 - 130 mg/dL [facility] Phone: Comment on above: LDL Guidelines: <100 Desirable 100-129 Near to/above Desirable 130-159 Borderline >159 Undesirable Direct (measured) LDL and calculated LDL are not interchangeable tests. Cholesterol in VLDL [Mass/Vol] NOT REPORTED 1 - 30 mg/dL [facility] Phone: Cholesterol.total/Juyd sterol in HDL [Mass ratio] 3.6 {ratio} <5 [facility] Phone: Interpretation and review of laboratory results Abnormal [employer] Phone: Triglyceride [Mass/Vol] 151 mg/dL High <150 [facility] Work Phone: Comment on above: Triglyceride Guidelines: <150 Desirable 150-199 Borderline 200-499 High >499 Very high Based on AHA Guidelines for fasting triglyceride, March 2012. [place] Levelon 07-14-2020 Interpretation and review of laboratory results Abnormal [employer] Phone: [place] Date Last Dose NOT REPORTED [facility] Work Phone: [place] Dose Amount NOT REPORTED [facility] Work Phone: [place] Dose Time NOT REPORTED [facility] Work Phone: [place] Lvl 1.6 mmol/L Critically high 0.6 - 1.2 mmol/L [facility] [employer] Work Phone: CBC Auto Differentialon Basophils (Bld) [#/Vol] 0.06 10*3/uL [place] Basophils/100 WBC (Bld) 1 % 0 - 2 % M [place], [place] Differential Type NOT REPORTED [place] Eosinophils (Bld) [#/Vol] 0.22 10*3/uL [place] Eosinophils/100 WBC (Bld) 4 % 1 - 4 % [place] Erythrocyte distribution width (RBC) [Ratio] 12.7 % 11.8 - 14.4 % [place] Hematocrit (Bld) [Volume fraction] 43.2 % 36.3 - 47.1 % [place] Hemoglobin (Bld) [Mass/Vol] 12.6 g/dL 11.9 - 15.1 g/dL [place] Immature granulocytes (Bld) [#/Vol] 10*3/uL [place] Immature granulocytes (Bld) [#/Vol] 0 % 0 [place] Interpretation and review of laboratory results Abnormal [place] Lymphocytes (Bld) [#/Vol] 1.92 10*3/uL [place] Lymphocytes/100 WBC (Bld) 36 % 24 - 43 % [place] MCH (RBC) [Entitic mass] 32.0 pg 25.2 - 33.5 pg [place] MCHC (RBC) [Mass/Vol] 29.2 g/dL 28.4 - 34.8 g/dL [place] MCV (RBC) [Entitic vol] 109.6 fL High 82.6 - 102.9 fL [place] Monocytes (Bld) [#/Vol] 0.46 10*3/uL [place] Monocytes/100 WBC (Bld) 9 % 3 - 12 % [place] Platelet mean volume (Bld) [Entitic vol] 11.5 fL 8.1 - 13.5 fL [place] Platelets (Bld) [#/Vol] 256 10*3/uL [place] Platelets (Bld) [#/Vol] NOT REPORTED [place] RBC (Bld) [#/Vol] 3.94 10*6/uL Low 3.95 - 5.11 m/uL [place] RBC morphology finding Nom (Bld) MACROCYTOSIS PRESENT [place] Segmented neutrophils/100 WBC (Bld) 50 % 36 - 65 % [place] Segs Absolute 2.66 [place] WBC (Bld) [#/Vol] 0.0 10*3/uL 0.0 per 100 WBC [place] WBC (Bld) [#/Vol] 5.3 10*3/uL [place] WBC Morphology NOT REPORTED [place], [place] Comprehensive Metabolic Pane eusebia 07-08-2020 Albumin [Mass/Vol] 4.3 g/dL 3.5 - 5.2 g/dL [place] Albumin/Globulin [Mass ratio] 1.5 {ratio} [place] ALP [Catalytic activity/Vol] 129 U/L High 35 - 104 U/L [place] ALT [Catalytic activity/Vol] 19 U/L 5 - 33 U/L [place] Anion gap [Moles/Vol] 10 mmol/L 9 - 17 mmol/L [place] AST [Catalytic activity/Vol] 18 U/L <32 [place] Bilirubin Ql (U) 0.21 mg/dL Low 0.3 - 1.2 mg/dL [place] Bun/Cre Ratio NOT REPORTED [place] Calcium [Mass/Vol] 10.9 mg/dL High 8.6 - 10. 4 mg/dL [place] Chloride [Moles/Vol] 108 mmol/L High 98 - 10 7 mmol/L [place] CO2 [Moles/Vol] 21 mmol/L 20 - 31 mmol/L [place] Creatinine [Mass/Vol] 1.29 mg/dL High 0.5 - 0.9 mg/dL [place] GFR 51 mL/min Low >60 [place] GFR Non- 42 mL/min Low >60 [place] GFR/1.73 sq M predicted among non-blacks MDRD (S/P/Bld) [Vol rate/Area] NOT REPORTED [place] GFR/1.73 sq M predicted among non-blacks MDRD (S/P/Bld) [Vol rate/Area] [place] Comment on above: Average GFR for 60-6 9 years old: 85 mL/min/1.73sq m Chronic Kidney Disease: <60 mL/min/1.73sq m Kidney failure: <15 mL/min/1.73sq m eGFR calculated using average adult body mass. Additional eGFR calculator available at: http://www.Loogares.Com/multiple_crcl_2011.htm Glucose [Mass/Vol] 88 mg/dL 70 - 99 mg/dL [place] Potassium [Moles/Vol] 3.9 mmol/L 3.7 - 5.3 mmol/L [place] Protein [Mass/Vol] 7.1 g/dL 6.4 - 8.3 g/dL [place] Sodium [Moles/Vol] 139 mmol/L 135 - 144 mmol/L [place] Urea nitrogen [Mass/Vol] 15 mg/dL 8 - 23 mg/dL [place] Laboratory - Chemistry and C hemistry - challengeOrdered By: Karla Clark on 07-08-2020 Albumin [Mass/Vol] 4.3 g/dL (3.5-5.2 ) [facility] Work Phone: Comment on above: Note: Responsible Ob kitchen food server: [employer] (3002) ALT [Catalytic activity/Vol] 19 U/L (5-33 ) [facility] Work Phone: Comment on above: Note: Responsible Ob kitchen food server: [employer] (3002) Anion gap [Moles/Vol] 10 mmol/L (9-17 ) [facility] Work Phone: Comment on above: Note: Responsible Ob kitchen food server: [employer] (3002) AST [Catalytic activity/Vol] 18 U/L (<32 ) [facility] Work Phone: Comment on above: Note: Responsible Ob kitchen food server: [employer] (3002) Bilirubin [Mass/Vol] 0.21 mg/dL Low (0.3-1.2 ) [facility] Work Phone: Comment on above: Note: Responsible Ob kitchen food server: [employer] (3002) Calcium [Mass/Vol] 10.9 mg/dL High (8.6-10.4 ) [facility] Work Phone: Comment on above: Note: Responsible Ob kitchen food server: [employer] (3002) Chloride [Moles/Vol] 108 mmol/L High (98-107 ) [facility] Work Phone: Comment on above: Note: Responsible Ob kitchen food server: [employer] (3002) Cholesterol [Mass/Vol] 136 mg/dL (<200 ) [facility] Work Phone: Comment on above: Note: Cholesterol Gu idelines:<200 Lavbnsrpr302-744 Borderline>240 UndesirableResponsible Observer: [employer] (3002) Cholesterol.total/Judy sterol in HDL [Mass ratio] 3.0 {ratio} (<5 ) [facility] Work Phone: Comment on above: Note: Responsible Ob kitchen food server: [employer] (3002) CO2 [Moles/Vol] 21 mmol/L (20-31 ) [facility] Work Phone: Comment on above: Note: Responsible Ob kitchen food server: [employer] (3002) Creatinine [Mass/Vol] 1.29 mg/dL High (0.50- 0.90 ) [facility] Work Phone: Comment on above: Note: Responsible Ob kitchen food server: [employer] (3002) Glucose [Mass/Vol] 88 mg/dL (70-99 ) [facility] Work Phone: Comment on above: Note: Responsible Ob kitchen food server: [employer] (3002) Magnesium [Mass/Vol] 46 mg/dL (>40 ) [facility] Work Phone: Comment on above: Note: HDL Guidelines :<40 Xscdeoakejj38-53 Borderline>59 DesirableResponsible Observer: [employer]OFILE (3002) Magnesium [Mass/Vol] 58 mg/dL (0-130 ) [facility] Work Phone: Comment on above: Note: LDL Guidelines :<100 [id number] Near to/above [id number] Borderline>159 UndesirableDirect (measured) LDL and calculated LDL are not interchangeable tests.Responsible Observer: [employer] (3002) Magnesium [Mass/Vol] 162 mg/dL High (<150 ) [facility] Work Phone: Comment on above: Note: Triglyceride G uidelines:<150 [id number] Kaceeyigqo258-349 High>499 Very highBased on AHA Guidelines for fasting triglyceride, March 2012.Responsible Observer: [employer] (3002) Potassium [Moles/Vol] 3.9 mmol/L (3.7-5.3 ) [facility] Work Phone: Comment on above: Note: Responsible Ob kitchen food server: [employer] (3002) Protein [Mass/Vol] 7.1 g/dL (6.4-8.3 ) [facility] Work Phone: Comment on above: Note: Responsible Ob kitchen food server: [employer] (3002) Sodium [Moles/Vol] 139 mmol/L (135-144 ) [facility] Work Phone: Comment on above: Note: Responsible Ob kitchen food server: [employer] (3002) Urea nitrogen [Mass/Vol] 15 mg/dL (8-23 ) [facility] Work Phone: Comment on above: Note: Responsible Ob kitchen food server: [employer] (3002) Laboratory - Hematology and Cell countsOrdered By: Karla Clark on 07-08-2020 Basophils/100 WBC (Bld) 1 % (0-2 ) [facility]: Comment on above: Note: Responsible Ob kitchen food server: [employer]NV [employer]OFILE (3018) Eosinophils (Bld) [#/Vol] 0.22 10*3/uL (0.00-0.44 ) [facility] Work Phone: Comment on above: Note: Responsible Ob kitchen food server: [employer] (3018) Eosinophils/100 WBC (Bld) 4 % (1-4 ) [facility] Work Phone: Comment on above: Note: Responsible Ob kitchen food server: [employer] (3018) Erythrocyte distribution width (RBC) [Ratio] 12.7 % (11.8-14.4 ) [facility] Work Phone: Comment on above: Note: Responsible Ob kitchen food server: [employer] (3018) Hematocrit (Bld) [Volume fraction] 43.2 % (36.3-47.1 ) [facility] Work Phone: Comment on above: Note: Responsible Ob kitchen food server: [employer] (3018) Hemoglobin (Bld) [Mass/Vol] 12.6 g/dL (11.9-15.1 ) [facility] Work Phone: Comment on above: Note: Responsible Ob kitchen food server: [employer]FILE (3018) Immature granulocytes/100 WBC (Bld) 0 % (0 ) [facility] Work Phone: Comment on above: Note: Responsible Ob kitchen food server: [employer] (3018) Lymphocytes (Bld) [#/Vol] 1.92 10*3/uL (1.10-3.70 ) [facility] Work Phone: Comment on above: Note: Responsible Ob kitchen food server: [employer] (3018) Lymphocytes/100 WBC (Bld) 36 % (24-43 ) [facility] Work Phone: Comment on above: Note: Responsible Ob kitchen food server: XNV AUTOFILE ([id number]) MCH (RBC) [Entitic mass] 32.0 pg (25.2-33.5 ) [facility] Work Phone: Comment on above: Note: Responsible Ob kitchen food server: XNV AUTOFILE ([id number]) MCHC (RBC) [Mass/Vol] 29.2 g/dL (28.4- 34.8 ) [facility] Work Phone: Comment on above: Note: Responsible Ob kitchen food server: XNV AUTOFILE ([id number]) MCV (RBC) [Entitic vol] 109.6 fL High (82. 6-102. 9 ) [facility] Work Phone: Comment on above: Note: Responsible Ob kitchen food server: XNV AUTOFILE ([id number]) Monocytes (Bld) [#/Vol] 0.46 10*3/uL (0.1 0-1.20 ) [facility] Work Phone: Comment on above: Note: Responsible Ob kitchen food server: XNV AUTOFILE ([id number]) Monocytes/100 WBC (Bld) 9 % (3-12 ) [facility] Comment on above: Note: Responsible Ob kitchen food server: XNV AUTOFILE ([id number]) Platelet mean volume (Bld) [Entitic vol] 11.5 fL (8.1-13.5 ) [facility] Work Phone: Comment on above: Note: Responsible Ob kitchen food server: XNV AUTOFILE ([id number]) Platelets (Bld) [#/Vol] 256 10*3/uL (138-453 ) [facility] Work Phone: Comment on above: Note: Responsible Ob kitchen food server: XNV AUTOFILE ([id number]) RBC (Bld) [#/Vol] 3.94 10*6/uL Low (3.95-5.11 ) [facility] Work Phone: Comment on above: Note: Responsible Ob kitchen food server: XNV AUTOFILE ([id number]) RBC morphology finding Nom (Bld) MACROCYTOSIS PRESENT [facility] Work Phone: Comment on above: Note: Responsible Ob kitchen food server: XNV AUTOFILE ([id number]) Segmented neutrophils/100 WBC (Bld) 50 % (36-65 ) [facility] Work Phone: Comment on above: Note: Responsible Ob kitchen food server: XNV AUTOFILE ([id number]) WBC (Bld) [#/Vol] 5.3 10*3/uL (3.5-11.3 ) [facility] Work Phone: Comment on above: Note: Responsible Ob kitchen food server: XNV AUTOFILE ([id number]) Laboratory - Microbiology an d Antimicrobial susceptibilityOrdered By: Karla Clark on 07-08-2020 Bacteria identified Cx Nom (Unsp spec) NOT REPORTED (NONE ) [facility] Work Phone: Laboratory - Specimen inform ationOrdered By: Karla Clark on 07-08-2020 Color (U) YELLOW (YEL ) [facility] Work Phone: Comment on above: Note: Responsible Ob kitchen food server: LETY MARTÍNEZ (516) Laboratory - UrinalysisOrder ed By: Karla Clark on 07-08-2020 Amorphous sediment LM Ql (Urine sed) NOT REPORTED (NONE ) [facility] Work Phone: Crystals LM Nom (Urine sed) NOT REPORTED /HPF (NONE ) [facility] Work Phone: Epithelial cells LM Ql (Urine sed) 0 TO 2 /HPF (0-5 ) [facility] Work Phone: Comment on above: Note: Responsible Ob kitchen food server: LETY MARTÍNEZ (185) Yeast LM Ql (Urine sed) NOT REPORTED (NONE ) [facility] Work Phone: Lipid, Fastingon 07-08-2020 Cholesterol [Mass/Vol] 136 mg/dL <200 [place], [place] Comment on above: Cholesterol Guidelines: <200 Desirable 200-240 Borderline >240 Undesirable Cholesterol in HDL [Mass/Vol] 46 mg/dL >40 [place] Comment on above: HDL Guidelines: <40 Undesirable 40-59 Borderline >59 Desirable Cholesterol in LDL [Mass/Vol] 58 mg/dL 0 - 130 mg/dL [place] Comment on above: LDL Guidelines: <100 Desirable 100-129 Near to/above Desirable 130-159 Borderline >159 Undesirable Direct (measured) LDL and calculated LDL are not interchangeable tests. Cholesterol in VLDL [Mass/Vol] NOT REPORTED High 1 - 30 mg/dL [place] Cholesterol.total/Judy sterol in HDL [Mass ratio] 3 {ratio} <5 [place] Triglyceride, Fasting 162 mg/dL High <150 [place], [place] Comment on above: Triglyceride Guidelines: <150 Desirable 150-199 Borderline 200-499 High >499 Very high Based on AHA Guidelines for fasting triglyceride, March 2012. Microscopic Urinalysison Amorphous, UA NOT REPORTED None [place] Bacteria, UA NOT REPORTED None [place] Casts UA NOT REPORTED [place] Crystals, UA NOT REPORTED None /HPF [place] Epithelial Cells UA 0 TO 2 [place] Mucus, UA NOT REPORTED None [place] Other Observations UA NOT REPORTED NOT REQ. [place] RBC (U) [#/Vol] None [place] Comment on above: Reference range defi aggie for non-centrifuged specimen. Renal Epithelial, UA NOT REPORTED 0 /HPF [place] Trichomonas, UA NOT REPORTED None [place] WBC, UA 0 TO 2 [place] Yeast, UA NOT REPORTED None [place], [place] - [place] No Panel InformationOrdered By: Karla Clark on 02-05-2021 (cont.) See Note [facility] Work Phone: Comment on above: Note: Average GFR fo r 60-69 years old:85 mL/min/1.73sq mChronic Kidney Disease:<60 mL/min/1.73sq mKidney failure:<15 mL/min/1.73sq meGFR calculated using average adult body mass. Additional eGFR calculatoravailable at:http://www.Loogares.Com/multiple_crcl_2012.htmResponsible Observer: CCEV AUTOFILE ([id number]) ----- See Note [facility] Work Phone: Comment on above: Note: Responsible Ob kitchen food server: LETY MARTÍNEZ (909) Abs. Basophil 0.06 k/uL (0.00-0.20 ) [facility] Work Phone: Comment on above: Note: Responsible Ob kitchen food server: XNV AUTOFILE ([id number]) Abs.Imm.Granulocyte <0.03 k/uL (0.00-0. 30 ) [facility] Work Phone: Comment on above: Note: Responsible Ob kitchen food server: XNV AUTOFILE ([id number]) Abs.Neutrophil (Seg) 2.66 k/uL (1.50-8 .10 ) [facility] Work Phone: Comment on above: Note: Responsible Ob kitchen food server: XNV AUTOFILE ([id number]) Acetoacetic Acid,Ur Negative (NEG ) [facility] Work Phone: Comment on above: Note: Responsible Ob kitchen food server: LETY MARTÍNEZ (909) Albumin/Glob Ratio 1.5 (1.0-2.5 ) [facility] Work Phone: Comment on above: Note: Responsible Ob kitchen food server: CCEV AUTOFILE (3002) Alkaline Phos 129 U/L High (35-104 ) [facility] Work Phone: Comment on above: Note: Responsible Ob kitchen food server: CCEV AUTOFILE ([id number]) Auto Diff Performed NOT REPORTED [facility] Work Phone: Bilirubin, SemiQt,Ur Negative (NEG ) [facility] Work Phone: Comment on above: Note: Responsible Ob kitchen food server: LETY MARTÍNEZ (691) BUN/CRE Ratio NOT REPORTED (9-20 ) [facility] Work Phone: Casts NOT REPORTED /LPF (0-8 ) [facility] Work Phone: Cholesterol,VLDL NOT REPORTED mg/dL (1-30 ) [facility] Work Phone: Comment NOT REPORTED [facility] Work Phone: Epithelial, Renal NOT REPORTED /HPF (0 ) [facility] Work Phone: GFR, Amer 51 mL/min Low (>60 ) [facility] Work Phone: Comment on above: Note: Responsible Ob kitchen food server: CCEV AUTOFILE (3002) GFR,non Amer 42 mL/min Low (>60 ) [facility] Work Phone: Comment on above: Note: Responsible Ob kitchen food server: CCEV AUTOFILE ([id number]) Glucose,Semi-qnt,Ur Negative (NEG ) [facility] Work Phone: Comment on above: Note: Responsible Ob kitchen food server: LETY MARTÍNEZ (347) Hemoglobin, Ur Negative (NEG ) [facility] Work Phone: Comment on above: Note: Responsible Ob kitchen food server: LETY MARTÍNEZ (243) Leuckocyte Esterase SMALL Abnormal (NEG ) [facility] Work Phone: Comment on above: Note: Responsible Ob kitchen food server: LETY MARTÍNEZ (283) Mucus Strands NOT REPORTED (NONE ) [facility] Work Phone: Nitrite,Ur Negative (NEG ) [facility] Work Phone: Comment on above: Note: Responsible Ob kitchen food server: LETY MARTÍNEZ (951) NRBC Automated 0.0 per_100_WBC (0.0 ) [facility] Work Phone: Comment on above: Note: Responsible Ob kitchen food server: XNV AUTOFILE ([id number]) Other Observations NOT REPORTED (NREQ ) [facility] Work Phone: Performing Lab: see note [facility] Work Phone: Comment on above: Note: MICHELLE Diaz Ramona Danni guille [address] [facility] [address] PH,Ur 7.5 (5.0-8.0 ) [facility] Work Phone: Comment on above: Note: Responsible Ob kitchen food server: LETY MARTÍNEZ (104) Platelet Estimate NOT REPORTED [facility] Work Phone: Protein, Semi-qnt,Ur Negative (NEG ) [facility] Work Phone: Comment on above: Note: Responsible Ob kitchen food server: LETY MARTÍNEZ (433) Reported Physicians See Note [facility] Work Phone: Comment on above: Note: Reported Physi cians:Ordering: Cotton, AimeeAttending: Cotton, AimeeReferring: Cotton, Karla Spec. [place],Ur 1.006 (1.005-1.0 30 ) [facility] Work Phone: Comment on above: Note: Responsible Ob kitchen food server: LETY MARTÍNEZ (653) Staging: NOT REPORTED [facility] Work Phone: Trichomonas NOT REPORTED (NONE ) [facility] Work Phone: Turbidity CLEAR (CLEAR ) [facility] Work Phone: Comment on above: Note: Responsible Ob kitchen food server: LETY MARTÍNEZ (477) Urine RBC's None /HPF (0-4 ) [facility] Work Phone: Comment on above: Note: Reference rang e defined for non-centrifuged specimen.Responsible Observer: LETY MARTÍNEZ (909) Urine WBC's 0 TO 2 /HPF (0-5 ) [facility] Work Phone: Comment on above: Note: Responsible Ob kitchen food server: LETY MARTÍNEZ (538) Urobilinogen,Ur Normal (NORM ) [facility] Work Phone: Comment on above: Note: Responsible Ob kitchen food server: LETY MARTÍNEZ (419) WBC Morphology NOT REPORTED [facility] Work Phone: Otheron 07-08-2020 Interpretation and review of laboratory results Abnormal [place] Urinalysis Reflex to Culture on 07-08-2020 Bilirubin Urine Negative NEGATIVE [place] Color, UA YELLOW YELLOW [place] Glucose, Ur Negative NEGATIVE [place] Interpretation and review of laboratory results Abnormal [place] Ketones Ql (U) Negative NEGATIVE [place] Leukocyte esterase Test strip Ql (U) SMALL Abnormal NEGATIVE [place] Nitrite, Urine Negative NEGATIVE [place] pH, UA 7.5 [place] Protein (U) [Mass/Vol] Negative NEGATIVE [place] Specific [place], UA 1.006 [place] Turbidity UA CLEAR CLEAR [place] Urinalysis Comments NOT REPORTED [place] Urine Hgb Negative NEGATIVE [place] Urobilinogen, Urine Normal Normal [place] BUNon 06-30-2020 Urea nitrogen [Mass/Vol] 17 mg/dL 8 - 23 mg/dL [place] Creatinine, Serumon 06-30-19 21 Creatinine [Mass/Vol] 1.26 mg/dL High 0.5 - 0.9 mg/dL [place] GFR 52 mL/min Low >60 [place] GFR Non- 43 mL/min Low >60 [place] Interpretation and review of laboratory results Abnormal [place] Laboratory - Chemistry and C hemistry - challengeOrdered By: Karla Clark on 06-30-2020 Creatinine [Mass/Vol] 1.26 mg/dL High (0.50- 0.90 ) [facility] Work Phone: Comment on above: Note: Responsible Ob kitchen food server: CET ONE AUTOFILE ([id number]) Urea nitrogen [Mass/Vol] 17 mg/dL (8-23 ) [facility] Work Phone: Comment on above: Note: Responsible Ob kitchen food server: CET ONE AUTOFILE ([id number]) Laboratory - Microbiology an d Antimicrobial susceptibilityOrdered By: Karla Clark on 06-30-2020 SARS-CoV-2 (COVID-19) RNA MARCIO+probe Ql (Resp) Not detected (Not Detected ) [facility] Work Phone: Comment on above: [...] of in vitro diagnostic tests for detection [id number] virus and/or diagnosis of COVID-19 infectionunder section [...] Unremarkable exam. N o significant pituitary mass. [facility] MRI OF THE BRAIN WITHOUT AND [...] The soft tissues demonstrate no acute abnormality. [place], [place] Perry, Mhpn Incoming Radiant Results From [facility] - 06/30/2020 4:29 PM EST EXAMINATION: MRI [...] IMPRESSION: Unremarkable exam. No significant pituitary mass. [place] Metabolic Panelon 06-30-2020 GFR/1.73 sq M predicted among non-blacks MDRD (S/P/Bld) [Vol rate/Area] [place] Comment on above: Average GFR for 60-6 9 years old: 85 mL/min/1.73sq m Chronic Kidney Disease: <60 mL/min/1.73sq m Kidney failure: <15 mL/min/1.73sq m eGFR calculated using average adult body mass. Additional eGFR calculator available at: http://www.Loogares.Com/multiple_crcl_2012.htm Stage 1: Some kidney damage normal GFR Stage 2: Mild kidney damage GFR 60-89 Stage 3: Moderate kidney damage GFR 30-59 Stage 4: Severe kidney damage GFR 15-29 Stage 5: Severe kidney damage GFR <15 ESRD - chronic treatment by dialysis or transplant No Panel InformationOrdered By: Karla Clark on 06-30-2020 (cont.) See Note [facility] Work Phone: Comment on above: Note: Average GFR fo r 60-69 years old:85 mL/min/1.73sq mChronic Kidney Disease:<60 mL/min/1.73sq mKidney failure:<15 mL/min/1.73sq meGFR calculated using average adult body mass. Additional eGFR calculatoravailable at:http://www.Loogares.Com/multiple_crcl_2012.htmResponsible Observer: CET ONE AUTOFILE ([id number]) GFR, Amer 52 mL/min Low (>60 ) [facility] Work Phone: Comment on above: Note: Responsible Ob kitchen food server: CET ONE AUTOFILE ([id number]) GFR,non Amer 43 mL/min Low (>60 ) [facility] Work Phone: Comment on above: Note: Responsible Ob kitchen food server: CET ONE AUTOFILE ([id number]) Performing Lab: see note [facility] Work Phone: Comment on above: Note: [facility] [address] [place] [address] Reported Physicians See Note [facility] Work Phone: Comment on above: Note: Reported Physi cians:Ordering: Cotton, AimeeAttending: Cotton, AimeeReferring: Cotton, Karla Staging: See Note [facility] Work Phone: Comment on above: Note: Stage 1: Some kidney damage normal GFRStage 2: Mild kidney damage GFR 60-89Stage 3: Moderate kidney damage GFR 30-59Stage 4: Severe kidney damage GFR 15-29Stage 5: Severe kidney damage GFR <15ESRD - chronic treatment by dialysis or transplantResponsible Observer: LUIZ MALDONADO AUTOFILE ([id number]) Surgical Pathologyon 021 Surgical Pathology Report -- [...] SURGICAL PATHOLOGY CONSULTATION Patient Name: GAIL ALMEIDA [facility] Rec: [id number] Path Number: [id number] [facility] CONSULTING PATHOLOGISTS [facility] ANATOMIC PATHOLOGY [address] [place] [address]. [place], [place] [address] [place] Otheron 06-08-2020 Addendum by Del Ross [...] Return to yearly screening schedule is recommended. [place] Technically successf ul ultrasound guided core biopsy of subtle sonographic abnormality in the posterior 4 o'clock left breast near the chest wall and coil shapedclip marker placement as described above. BIRADS: ZW - Pathology pending. [place] EXAMINATION: ULTRASOUND-GUIDED LEFT BREAST BIOPSY WITH [...] placement imaging performed in a separate room. [place] Perry, Angelica Incoming Radiant Results From [facility] - 06/08/2020 11:19 AM EST EXAMINATION: ULTRASOUND-GUIDED [...] described above. BIRADS: ZW - Pathology pending. [place] Prolactinon 06-06-2020 Interpretation and review of laboratory results Abnormal [place] Prolactin 223 ug/L High 4.79 - 23.3 ug/L [place] Comment on above: The presence of [...] patient at the time of service. A franchise sales representative from the radiology department will be contacting your office and assisting the patient in getting appropriate follow-up. [facility]ESH EXAMINATION: DIAGNOS TIC DIGITAL BILATERAL BREASTS MAMMOGRAM [...] tissue sampling of this location is advised. [facility], Mhpn Incoming Radiant Results From [facility] - 04/04/2020 5:42 PM EST EXAMINATION: DIAGNOSTIC [...] patient at the time of service. A franchise sales representative from the radiology department will be contacting your office and assisting the patient in getting appropriate follow-up. [place] BUNon 03-31-2020 Urea nitrogen [Mass/Vol] 21 mg/dL 8 - 23 mg/dL [place] Creatinine, Serumon 03-31-20 20 Creatinine [Mass/Vol] 1.1 mg/dL High 0.5 - 0.9 mg/dL [place] GFR >60 >60 mL/min [place] GFR Non- 50 mL/min Low >60 [place] GFR/1.73 sq M predicted among non-blacks MDRD (S/P/Bld) [Vol rate/Area] [place], [place] Comment on above: Average GFR for 60-6 9 years old: 85 mL/min/1.73sq m Chronic Kidney Disease: <60 mL/min/1.73sq m Kidney failure: <15 mL/min/1.73sq m eGFR calculated using average adult body mass. Additional eGFR calculator available at: http://www.Loogares.Com/multiple_crcl_2012.htm GFR/1.73 sq M predicted among non-blacks MDRD (S/P/Bld) [Vol rate/Area] NOT REPORTED [place] Interpretation and review of laboratory results Abnormal [place] Metabolic Panelon 03-31-2020 Creatinine [Mass/Vol] 1.10 mg/dL High (0.50- 0.90 ) [facility] Work Phone: Comment on above: Note: Responsible Ob kitchen food server: CEEV AUTOFILE ([id number]) Urea nitrogen [Mass/Vol] 21 mg/dL (8-23) [facility] Work Phone: Comment on above: Note: Responsible Ob kitchen food server: CEEV AUTOFILE ([id number]) Otheron 03-31-2020 (cont.) See Note [facility] Work Phone: Comment on above: Note: Average GFR fo r 60-69 years old:85 mL/min/1.73sq mChronic Kidney Disease:<60 mL/min/1.73sq mKidney failure:<15 mL/min/1.73sq meGFR calculated using average adult body mass. Additional eGFR calculatoravailable at:http://www.Loogares.Com/multiple_crcl_2012.htmResponsible Observer: CEEV AUTOFILE ([id number]) GFR, Amer >60 mL/min (>60) [facility] Work Phone: Comment on above: Note: Responsible Ob kitchen food server: CEEV AUTOFILE ([id number]) GFR,non Amer 50 mL/min Low (>60) [facility] Work Phone: Comment on above: Note: Responsible Ob kitchen food server: CEEV AUTOFILE ([id number]) Performing Lab: see note [facility] Work Phone: Comment on above: Note: [facility] [place] [id number] [place] [id number] Reported Physicians See Note [facility] Work Phone: Comment on above: Note: Reported Physi cians:Ordering: Cotton, AimeeAttending: Cotton, AimeeReferring: Cotton, Karla Staging: NOT REPORTED [facility] Work Phone: CBC Auto Differentialon - Basophils (Bld) [#/Vol] 0.06 10*3/uL [facility] [place] Basophils/100 WBC (Bld) 1 % 0 - 2 % [facility], [place] Differential Type NOT REPORTED [facility], [place] Eosinophils (Bld) [#/Vol] 0.15 10*3/uL [facility], [place] Eosinophils/100 WBC (Bld) 3 % 1 - 4 % [facility], [place] Erythrocyte distribution width (RBC) [Ratio] 13.2 % 11.8 - 14.4 % [place] Hematocrit (Bld) [Volume fraction] 42.7 % 36.3 - 47.1 % [place] Hemoglobin (Bld) [Mass/Vol] 12.6 g/dL 11.9 - 15.1 g/dL [place] Immature granulocytes (Bld) [#/Vol] 0 % 0 [place] Immature granulocytes (Bld) [#/Vol] 10*3/uL [place] Interpretation and review of laboratory results Abnormal [place] Lymphocytes (Bld) [#/Vol] 1.57 10*3/uL [place] Lymphocytes/100 WBC (Bld) 29 % 24 - 43 % [place] MCH (RBC) [Entitic mass] 32.1 pg 25.2 - 33.5 pg [place] MCHC (RBC) [Mass/Vol] 29.5 g/dL 28.4 - 34.8 g/dL [place] MCV (RBC) [Entitic vol] 108.7 fL High 82.6 - 102.9 fL [place] Monocytes (Bld) [#/Vol] 0.45 10*3/uL [place] Monocytes/100 WBC (Bld) 8 % 3 - 12 % [place] Platelet mean volume (Bld) [Entitic vol] 11.1 fL 8.1 - 13.5 fL [place] Platelets (Bld) [#/Vol] NOT REPORTED [place] Platelets (Bld) [#/Vol] 259 10*3/uL [place] RBC (Bld) [#/Vol] 3.93 10*6/uL Low 3.95 - 5.11 m/uL [place] RBC morphology finding Nom (Bld) MACROCYTOSIS PRESENT [place] Segmented neutrophils/100 WBC (Bld) 59 % 36 - 65 % [place], [place] Segs Absolute 3.12 [place] WBC (Bld) [#/Vol] 5.4 10*3/uL [place] WBC (Bld) [#/Vol] 0.0 10*3/uL 0.0 per 100 WBC [place] WBC Morphology NOT REPORTED [place], [place] [facility] 03-10-2020 Cholesterol [Mass/Vol] 139 mg/dL (<200) [facility] Work Phone: Comment on above: Note: Cholesterol Gu idelines:<200 [id number] Borderline>240 UndesirableResponsible Observer: CCEV AUTOFILE ([id number]) Comprehensive Metabolic Pane eusebia 03-10-2020 Albumin [Mass/Vol] 4.3 g/dL 3.5 - 5.2 g/dL [place] Albumin/Globulin [Mass ratio] 1.9 {ratio} [place] ALP [Catalytic activity/Vol] 136 U/L High 35 - 104 U/L [place] ALT [Catalytic activity/Vol] 50 U/L High 5 - 33 U/L [place] Anion gap [Moles/Vol] 12 mmol/L 9 - 17 mmol/L [place] AST [Catalytic activity/Vol] 28 U/L <32 [place] Bilirubin Ql (U) 0.18 mg/dL Low 0.3 - 1.2 mg/dL [place] Bun/Cre Ratio NOT REPORTED [facility] [place] [place] Calcium [Mass/Vol] 10.7 mg/dL High 8.6 - 10. 4 mg/dL [place] Chloride [Moles/Vol] 109 mmol/L High 98 - 10 7 mmol/L [place] CO2 [Moles/Vol] 19 mmol/L Low 20 - 31 mmol/L [place] Creatinine [Mass/Vol] 1.13 mg/dL High 0.5 - 0.9 mg/dL [place] GFR 59 mL/min Low >60 [place] GFR Non- 49 mL/min Low >60 [place] GFR/1.73 sq M predicted among non-blacks MDRD (S/P/Bld) [Vol rate/Area] [place] Comment on above: Average GFR for 60-6 9 years old: 85 mL/min/1.73sq m Chronic Kidney Disease: <60 mL/min/1.73sq m Kidney failure: <15 mL/min/1.73sq m eGFR calculated using average adult body mass. Additional eGFR calculator available at: http://www.Loogares.Com/multiple_crcl_2012.htm GFR/1.73 sq M predicted among non-blacks MDRD (S/P/Bld) [Vol rate/Area] NOT REPORTED [place] Glucose [Mass/Vol] 87 mg/dL 70 - 99 mg/dL [place] Interpretation and review of laboratory results Abnormal [place] Potassium [Moles/Vol] 4.4 mmol/L 3.7 - 5.3 mmol/L [place] Protein [Mass/Vol] 6.6 g/dL 6.4 - 8.3 g/dL [place] Sodium [Moles/Vol] 140 mmol/L 135 - 144 mmol/L [place] Urea nitrogen [Mass/Vol] 21 mg/dL 8 - 23 mg/dL [place] Hematologyon 03-10-2020 Basophils/100 WBC (Bld) 1 % (0-2) [facility]: Comment on above: Note: Responsible Ob kitchen food server: XNV AUTOFILE ([id number]) Eosinophils (Bld) [#/Vol] 0.15 10*3/uL (0.00-0.44 ) [facility] Work Phone: Comment on above: Note: Responsible Ob kitchen food server: XNV AUTOFILE ([id number]) Eosinophils/100 WBC (Bld) 3 % (1-4) [facility] Work Phone: Comment on above: Note: Responsible Ob kitchen food server: XNV AUTOFILE ([id number]) Hematocrit (Bld) [Volume fraction] 42.7 % (36.3-47.1 ) [facility] Work Phone: Comment on above: Note: Responsible Ob kitchen food server: XNV AUTOFILE ([id number]) Hemoglobin (Bld) [Mass/Vol] 12.6 g/dL (11.9-15.1 ) [facility] Work Phone: Comment on above: Note: Responsible Ob kitchen food server: XNV AUTOFILE ([id number]) Lymphocytes (Bld) [#/Vol] 1.57 10*3/uL (1.10-3.70 ) [facility] Work Phone: Comment on above: Note: Responsible Ob kitchen food server: XNV AUTOFILE ([id number]) Lymphocytes/100 WBC (Bld) 29 % (24-43) [facility] Work Phone: Comment on above: Note: Responsible Ob kitchen food server: XNV AUTOFILE ([id number]) MCH (RBC) [Entitic mass] 32.1 pg (25.2-33.5 ) [facility] Work Phone: Comment on above: Note: Responsible Ob kitchen food server: XNV AUTOFILE ([id number]) MCV (RBC) [Entitic vol] 108.7 fL High (82. 6-102. 9) [facility] Work Phone: Comment on above: Note: Responsible Ob kitchen food server: XNV AUTOFILE ([id number]) Monocytes (Bld) [#/Vol] 0.45 10*3/uL (0.1 0-1.20 ) [facility] Work Phone: Comment on above: Note: Responsible Ob kitchen food server: XNV AUTOFILE ([id number]) Monocytes/100 WBC (Bld) 8 % (3-12) [facility] Comment on above: Note: Responsible Ob kitchen food server: XNV AUTOFILE ([id number]) Platelets (Bld) [#/Vol] NOT REPORTED [facility] Work Phone: Platelets (Bld) [#/Vol] 259 10*3/uL (138-453) [facility] Work Phone: Comment on above: Note: Responsible Ob kitchen food server: XNV AUTOFILE (3018) RBC (Bld) [#/Vol] 3.93 10*6/uL Low (3.95-5.11 ) [facility] [facility] Work [facility] Comment on above: Note: Responsible Ob kitchen food server: XNV AUTOFILE (3018) RBC morphology finding Nom (Bld) MACROCYTOSIS PRESENT [facility] Work Phone: Comment on above: Note: Responsible Ob kitchen food server: XNV AUTOFILE (3018) WBC (Bld) [#/Vol] 5.4 10*3/uL (3.5-11.3) [facility] Work Phone: Comment on above: Note: Responsible Ob kitchen food server: XNV AUTOFILE (3018) WBC (Bld) [#/Vol] 0.0 per_100_WBC (0.0) [facility] Work Phone: Comment on above: Note: Responsible Ob kitchen food server: XNV AUTOFILE (3018) Lipid, Fastingon 03-10-2020 Cholesterol [Mass/Vol] 139 mg/dL <200 [place], [place] Comment on above: Cholesterol Guidelines: <200 Desirable 200-240 Borderline >240 Undesirable Cholesterol in HDL [Mass/Vol] 46 mg/dL >40 [place] Comment on above: HDL Guidelines: <40 Undesirable 40-59 Borderline >59 Desirable Cholesterol in LDL [Mass/Vol] 73 mg/dL 0 - 130 mg/dL [place] Comment on above: LDL Guidelines: <100 Desirable 100-129 Near to/above Desirable 130-159 Borderline >159 Undesirable Direct (measured) LDL and calculated LDL are not interchangeable tests. Cholesterol in VLDL [Mass/Vol] NOT REPORTED 1 - 30 mg/dL [place] Cholesterol.total/Judy sterol in HDL [Mass ratio] 3 {ratio} <5 [place] Triglyceride, Fasting 102 mg/dL <150 [place], [place] Comment on above: Triglyceride Guidelines: <150 Desirable 150-199 Borderline 200-499 High >499 Very high Based on AHA Guidelines for fasting triglyceride, March 2012. Metabolic Panelon 03-10-2020 Albumin [Mass/Vol] 4.3 g/dL (3.5-5.2) [facility] Work Phone: Comment on above: Note: Responsible Ob kitchen food server: CCEV AUTOFILE (3002) ALT [Catalytic activity/Vol] 50 U/L High (5-33) [facility] Work Phone: Comment on above: Note: Responsible Ob kitchen food server: CCEV AUTOFILE (3002) Anion gap [Moles/Vol] 12 mmol/L (9-17) [facility] Work Phone: Comment on above: Note: Responsible Ob kitchen food server: CCEV AUTOFILE (3002) AST [Catalytic activity/Vol] 28 U/L (<32) [facility] Work Phone: Comment on above: Note: Responsible Ob kitchen food server: CCEV AUTOFILE (3002) Bilirubin [Mass/Vol] 0.18 mg/dL Low (0.3-1.2) [facility] Work Phone: Comment on above: Note: Responsible Ob kitchen food server: CCEV AUTOFILE (3002) Calcium [Mass/Vol] 10.7 mg/dL High (8.6-10.4) [facility] Work Phone: Comment on above: Note: Responsible Ob kitchen food server: CCEV AUTOFILE (3002) Chloride [Moles/Vol] 109 mmol/L High (98-107) [facility] Work Phone: Comment on above: Note: Responsible Ob kitchen food server: CCEV AUTOFILE (3002) CO2 [Moles/Vol] 19 mmol/L Low (20-31) [facility] Work Phone: Comment on above: Note: Responsible Ob kitchen food server: CCEV AUTOFILE (3002) Creatinine [Mass/Vol] 1.13 mg/dL High (0.50- 0.90 ) [facility] Work Phone: Comment on above: Note: Responsible Ob kitchen food server: CCEV AUTOFILE (3002) Glucose [Mass/Vol] 87 mg/dL (70-99) [facility] Work Phone: Comment on above: Note: Responsible Ob kitchen food server: CCEV AUTOFILE (3002) Potassium [Moles/Vol] 4.4 mmol/L (3.7-5.3) [facility] Work Phone: Comment on above: Note: Responsible Ob kitchen food server: CCEV AUTOFILE (3002) Protein [Mass/Vol] 6.6 g/dL (6.4-8.3) [facility] Work Phone: Comment on above: Note: Responsible Ob kitchen food server: CCEV AUTOFILE (3002) Sodium [Moles/Vol] 140 mmol/L (135-144) [facility] Work Phone: Comment on above: Note: Responsible Ob kitchen food server: CCEV AUTOFILE (3002) Urea nitrogen [Mass/Vol] 21 mg/dL (8-23) [facility] Work Phone: Comment on above: Note: Responsible Ob kitchen food server: CCEV AUTOFILE (3002) Otheron 03-10-2020 (cont.) See Note [facility] Work Phone: Comment on above: Note: Average GFR fo r 60-69 years old:85 mL/min/1.73sq mChronic Kidney Disease:<60 mL/min/1.73sq mKidney failure:<15 mL/min/1.73sq meGFR calculated using average adult body mass. Additional eGFR calculatoravailable at:http://www.Macaw.com/multiple_crcl_2012.htmResponsible Observer: CCEV AUTOFILE (3002) Abs. Basophil 0.06 k/uL (0.00-0.20 ) [facility] Work Phone: Comment on above: Note: Responsible Ob kitchen food server: XNV AUTOFILE ([id number]) Abs.Imm.Granulocyte <0.03 k/uL (0.00-0. 30 ) [facility] Work Phone: Comment on above: Note: Responsible Ob kitchen food server: XNV AUTOFILE (3018) Abs.Neutrophil (Seg) 3.12 k/uL (1.50-8 .10 ) [facility] Work Phone: Comment on above: Note: Responsible Ob kitchen food server: XNV AUTOFILE (3018) Albumin/Glob Ratio 1.9 (1.0-2.5) [facility] Work Phone: Comment on above: Note: Responsible Ob kitchen food server: CCEV AUTOFILE (3002) Alkaline Phos 136 U/L High (35-104) [facility] Work Phone: Comment on above: Note: Responsible Ob kitchen food server: CCEV AUTOFILE (3002) Auto Diff Performed NOT REPORTED [facility]: BUN/CRE Ratio NOT REPORTED (9-20) [facility] Work Phone: Cholesterol,HDL 46 mg/dL (>40) [facility] Work Phone: Comment on above: Note: HDL Guidelines :<40 [id number] Borderline>59 DesirableResponsible Observer: CCEV AUTOFILE (3002) Cholesterol,LDL 73 mg/dL (0-130) [facility] Work Phone: Comment on above: Note: LDL Guidelines :<100 [id number] Near to/above [id number] Borderline>159 UndesirableDirect (measured) LDL and calculated LDL are not interchangeable tests.Responsible Observer: CCEV AUTOFILE (3002) Cholesterol,VLDL NOT REPORTED mg/dL (1-30) [facility] Work Phone: Cholesterol.total/Judy sterol in HDL [Mass ratio] 3.0 {ratio} (<5) [facility] Work Phone: Comment on above: Note: Responsible Ob kitchen food server: CCEV AUTOFILE (3002) Erythrocyte distribution width (RBC) [Ratio] 13.2 % (11.8-14.4 ) [facility] Work Phone: Comment on above: Note: Responsible Ob kitchen food server: XNV AUTOFILE (3018) GFR, Amer 59 mL/min Low (>60) [facility] Work Phone: Comment on above: Note: Responsible Ob kitchen food server: CCEV AUTOFILE (3002) GFR,non Amer 49 mL/min Low (>60) [facility] Work Phone: Comment on above: Note: Responsible Ob kitchen food server: CCEV AUTOFILE (3002) Immature granulocytes (Bld) [#/Vol] 0 % (0) [facility] Work Phone: Comment on above: Note: Responsible Ob kitchen food server: XNV AUTOFILE (301) MCHC (RBC) [Mass/Vol] 29.5 g/dL (28.4- 34.8 ) [facility] Work Phone: Comment on above: Note: Responsible Ob kitchen food server: XNV AUTOFILE (3017) Performing Lab: see note [facility] Work Phone: Comment on above: Note: MICHELLE Kinney [address] [facility] [address] Platelet mean volume (Bld) [Entitic vol] 11.1 fL (8.1-13.5) [facility] Work Phone: Comment on above: Note: Responsible Ob kitchen food server: XNV AUTOFILE (3018) Reported Physicians See Note [facility] Work Phone: Comment on above: Note: Reported Physi cians:Ordering: Cotton, AimeeAttending: Cotton, AimeeReferring: Cotton, Karla Segmented neutrophils/100 WBC (Bld) 59 % (36-65) [facility] Work Phone: Comment on above: Note: Responsible Ob kitchen food server: XNV AUTOFILE (3018) Staging: NOT REPORTED [facility] Work Phone: Thyroid Stim. Horm. 1.01 mIU/L (0.30-5. 00 ) [facility] Work Phone: Comment on above: Note: Responsible Ob kitchen food server: NA ARORA ([id number]) Triglyceride,Fasting 102 mg/dL (<150) [facility] Work Phone: Comment on above: Note: Triglyceride G uidelines:<150 [id number] High>499 Very highBased on AHA Guidelines for fasting triglyceride, March 2012.Responsible Observer: CCEV AUTOFILE ([id number]) WBC Morphology NOT REPORTED [facility] Work Phone: TSH with Reflexon 03-10-2020 TSH Qn 1.01 m[IU]/L [place], [place] Creatinine, Serumon 08-03-19 20 Creatinine [Mass/Vol] 1.06 mg/dL High 0.5 - 0.9 mg/dL [place] GFR >60 >60 mL/min [place] GFR Non- 53 mL/min Low >60 [place] Interpretation and review of laboratory results Abnormal [place] Glucose, randomon 08-03-2019 Glucose [Mass/Vol] 98 mg/dL 70 - 99 mg/dL [place] Lipid Panelon 08-03-2019 Cholesterol [Mass/Vol] 145 mg/dL <200 [place], [place] Comment on above: Cholesterol Guidelines: <200 Desirable 200-240 Borderline >240 Undesirable Cholesterol in HDL [Mass/Vol] 54 mg/dL >40 [place] Comment on above: HDL Guidelines: <40 Undesirable 40-59 Borderline >59 Desirable Cholesterol in LDL [Mass/Vol] 75 mg/dL 0 - 130 mg/dL [place] Comment on above: LDL Guidelines: <100 Desirable 100-129 Near to/above Desirable 130-159 Borderline >159 Undesirable Direct (measured) LDL and calculated LDL are not interchangeable tests. Cholesterol in VLDL [Mass/Vol] NOT REPORTED 1 - 30 mg/dL [place] Cholesterol.total/Judy sterol in HDL [Mass ratio] 2.7 {ratio} <5 [place] Triglyceride [Mass/Vol] 80 mg/dL <150 [place] Comment on above: Triglyceride Guidelines: <150 Desirable 150-199 Borderline 200-499 High >499 Very high Based on AHA Guidelines for fasting triglyceride, March 2012. [place] Levelon 08-03-2019 [place] Date Last Dose NOT REPORTED [place] Dose Amount NOT REPORTED [place] Dose Time NOT REPORTED [place] Lvl 1.1 mmol/L 0.6 - 1.2 mmol/L [place] Metabolic Panelon 08-03-2019 GFR/1.73 sq M predicted among non-blacks MDRD (S/P/Bld) [Vol rate/Area] [place], [place] Comment on above: Average GFR for 60-6 9 years old: 85 mL/min/1.73sq m Chronic Kidney Disease: <60 mL/min/1.73sq m Kidney failure: <15 mL/min/1.73sq m eGFR calculated using average adult body mass. Additional eGFR calculator available at: http://www.Loogares.Com/multiple_crcl_2012.htm Stage 1: Some kidney damage normal GFR Stage 2: Mild kidney damage GFR 60-89 Stage 3: Moderate kidney damage GFR 30-59 Stage 4: Severe kidney damage GFR 15-29 Stage 5: Severe kidney damage GFR <15 ESRD - chronic treatment by dialysis or transplant TSH without Reflexon 020 TSH Qn 1.45 m[IU]/L [place] US BREAST LIMITED LEFTon 1. Previously [...] sent to the patient regarding the results. [facility] EXAMINATION: TARGETE D ULTRASOUND OF THE [...] this region as no target was demonstrated. [place], [place], [facility] Incoming Radiant Results From [facility] - 04/10/2019 12:52 PM EST EXAMINATION: TARGETED [...] sent to the patient regarding the results. [place] US BREAST COMPLETE LEFTon 2 site [...] patient at the time of service. A franchise sales representative from the radiology department will be contacting your office and assisting the patient in getting appropriate follow-up. [place] EXAMINATION: TARGETE D ULTRASOUND OF THE [...] images of the axilla show no lymphadenopathy. [facility] [place] [place] Incoming Radiant Results From [employer] - 03/11/2019 1:56 PM EDT EXAMINATION: TARGETED [...] patient at the time of service. A franchise sales representative from the radiology department will be contacting your office and assisting the patient in getting appropriate follow-up. [facility] XR FOOT RIGHT (MIN 3 VIEWS)o n 02-16-2019 No acute osseous abnormality. 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 [facility] EXAMINATION: THREE X RAY VIEWS OF THE RIGHT FOOT 02/16/2019 11:39 am COMPARISON: None. 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 Lisfranc alignment is normal. 5th metatarsal base is intact. Talonavicular degenerative change. [facility] [place] Incoming Radiant Results From [employer] - 02/16/2019 12:08 PM EDT EXAMINATION: THREE [...] abnormality. 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 [place], [place] [facility] 11-14-2018 Cholesterol [Mass/Vol] 150 mg/dL (<200) [facility] Work Phone: Comment on above: Note: Cholesterol Gu idelines: <200 Desirable 200-240 Borderline >240 Undesirable Responsible Observer: CET TWO AUTOFILE (3006) Triglyceride [Mass/Vol] 147 mg/dL (<150) [facility] Work Phone: Comment on above: Note: Triglyceride G uidelines: <150 Desirable 150-199 Borderline 200-499 High >499 Very high Based on AHA Guidelines for fasting triglyceride, March 2012. Responsible Observer: CET TWO AUTOFILE (3006) Hematologyon 11-14-2018 Basophils/100 WBC (Bld) 1 % (0-2) [facility] Work Phone: Comment on above: Note: Responsible Ob kitchen food server: XNT AUTOFILE (3019) Eosinophils (Bld) [#/Vol] 0.15 10*3/uL (0.00-0.44 ) [facility] Work Phone: Comment on above: Note: Responsible Ob kitchen food server: XNT AUTOFILE (3019) Eosinophils/100 WBC (Bld) 3 % (1-4) [facility] Work Phone: Comment on above: Note: Responsible Ob kitchen food server: XNT AUTOFILE (3019) Hematocrit (Bld) [Volume fraction] 39.9 % (36.3-47.1 ) [facility] Work Phone: Comment on above: Note: Responsible Ob kitchen food server: XNT AUTOFILE (3019) Hemoglobin (Bld) [Mass/Vol] 12.5 g/dL (11.9-15.1 ) [facility] Work Phone: Comment on above: Note: Responsible Ob kitchen food server: XNT AUTOFILE (3019) Lymphocytes (Bld) [#/Vol] 1.97 10*3/uL (1.10-3.70 ) [facility] Work Phone: Comment on above: Note: Responsible Ob kitchen food server: XNT AUTOFILE (3019) Lymphocytes/100 WBC (Bld) 36 % (24-43) [facility] Work Phone: Comment on above: Note: Responsible Ob kitchen food server: XNT AUTOFILE (3019) MCH (RBC) [Entitic mass] 31.2 pg (25.2-33.5 ) [facility] Work Phone: Comment on above: Note: Responsible Ob kitchen food server: XNT AUTOFILE (3019) MCV (RBC) [Entitic vol] 99.5 fL (82. 6-102. 9) [facility] Work Phone: Comment on above: Note: Responsible Ob kitchen food server: XNT AUTOFILE (3019) Monocytes (Bld) [#/Vol] 0.54 10*3/uL (0.1 0-1.20 ) [facility] Work Phone: Comment on above: Note: Responsible Ob kitchen food server: XNT AUTOFILE (3019) Monocytes/100 WBC (Bld) 10 % (3-12) [facility]: Comment on above: Note: Responsible Ob kitchen food server: XNT AUTOFILE (3019) Platelets (Bld) [#/Vol] NOT REPORTED [facility] Work Phone: Platelets (Bld) [#/Vol] 269 10*3/uL (138-453) [facility] Work Phone: Comment on above: Note: Responsible Ob kitchen food server: XNT AUTOFILE (3019) RBC (Bld) [#/Vol] 4.01 10*6/uL (3.95-5.11 ) [facility] Work Phone: Comment on above: Note: Responsible Ob kitchen food server: XNT AUTOFILE (3019) RBC morphology finding Nom (Bld) NOT REPORTED [facility] Work Phone: WBC (Bld) [#/Vol] 0.0 per_100_WBC (0.0) [facility] Work Phone: Comment on above: Note: Responsible Ob kitchen food server: XNT AUTOFILE (3019) WBC (Bld) [#/Vol] 5.5 10*3/uL (3.5-11.3) [facility] Work Phone: Comment on above: Note: Responsible Ob kitchen food server: XNT AUTOFILE (3019) Metabolic Panelon 11-14-2018 Albumin [Mass/Vol] 4.4 g/dL (3.5-5.2) [facility] Work Phone: Comment on above: Note: Responsible Ob kitchen food server: CET TWO AUTOFILE (3006) ALT [Catalytic activity/Vol] 18 U/L (5-33) [facility] Work Phone: Comment on above: Note: Responsible Ob kitchen food server: CET TWO AUTOFILE (3006) Anion gap [Moles/Vol] 9 mmol/L (9-17) [facility] Work Phone: Comment on above: Note: Responsible Ob kitchen food server: CET TWO AUTOFILE (3006) AST [Catalytic activity/Vol] 15 U/L (<32) [facility] Work Phone: Comment on above: Note: Responsible Ob kitchen food server: CET TWO AUTOFILE (3006) Bilirubin [Mass/Vol] 0.35 mg/dL (0.3-1.2) [facility] Work Phone: Comment on above: Note: Responsible Ob kitchen food server: CET TWO AUTOFILE (3006) Calcium [Mass/Vol] 10.8 mg/dL High (8.6-10.4) [facility] Work Phone: Comment on above: Note: Responsible Ob kitchen food server: CET TWO AUTOFILE (3006) Chloride [Moles/Vol] 109 mmol/L High (98-107) [facility] Work Phone: Comment on above: Note: Responsible Ob kitchen food server: CET TWO AUTOFILE (3006) CO2 [Moles/Vol] 24 mmol/L (20-31) [facility] Work Phone: Comment on above: Note: Responsible Ob kitchen food server: CET TWO AUTOFILE (3006) Creatinine [Mass/Vol] 1.07 mg/dL High (0.50- 0.90 ) [facility] Work Phone: Comment on above: Note: Responsible Ob kitchen food server: CET TWO AUTOFILE (3006) Glucose [Mass/Vol] 101 mg/dL High (70-99) [facility] Work Phone: Comment on above: Note: Responsible Ob kitchen food server: CET TWO AUTOFILE (3006) Potassium [Moles/Vol] 4.3 mmol/L (3.7-5.3) [facility] Work Phone: Comment on above: Note: Responsible Ob kitchen food server: CET TWO AUTOFILE (3006) Protein [Mass/Vol] 7.1 g/dL (6.4-8.3) [facility] Work Phone: Comment on above: Note: Responsible Ob kitchen food server: CET TWO AUTOFILE (3006) Sodium [Moles/Vol] 142 mmol/L (135-144) [facility] Work Phone: Comment on above: Note: Responsible Ob kitchen food server: CET TWO AUTOFILE (3006) Urea nitrogen [Mass/Vol] 15 mg/dL (8-23) [facility] Work Phone: Comment on above: Note: Responsible Ob kitchen food server: CET TWO AUTOFILE (3006) Otheron 11-14-2018 (cont.) See Note [facility] Work Phone: Comment on above: Note: Average GFR fo r 60-69 years old: 85 mL/min/1.73sq mChronic Kidney Disease: <60 mL/min/1.73sq mKidney failure: <15 mL/min/1.73sq m eGFR calculated using average adult body mass. Additional eGFR calculator available at: http://www.Loogares.Com/multiple_crcl_2012.htm Responsible Observer: CET TWO AUTOFILE (3006) Abs. Basophil 0.04 k/uL (0.00-0.20 ) [facility] Work Phone: Comment on above: Note: Responsible Ob kitchen food server: XNT AUTOFILE (3019) Abs.Imm.Granulocyte <0.03 k/uL (0.00-0. 30 ) [facility] Work Phone: Comment on above: Note: Responsible Ob kitchen food server: XNT AUTOFILE (3019) Abs.Neutrophil (Seg) 2.77 k/uL (1.50-8 .10 ) [facility] Work Phone: Comment on above: Note: Responsible Ob kitchen food server: XNT AUTOFILE (3019) Albumin/Glob Ratio 1.6 (1.0-2.5) [facility] Work Phone: Comment on above: Note: Responsible Ob kitchen food server: CET TWO AUTOFILE (3006) Alkaline Phos 135 U/L High (35-104) [facility] Work Phone: Comment on above: Note: Responsible Ob kitchen food server: CET TWO AUTOFILE (3006) Auto Diff Performed NOT REPORTED [facility] Work Phone: BUN/CRE Ratio 14 (9-20) [facility] Work Phone: Comment on above: Note: Responsible Ob kitchen food server: CET TWO AUTOFILE (3006) Cholesterol,HDL 44 mg/dL (>40) [facility] Work Phone: Comment on above: Note: HDL Guidelines : <40 Undesirable 40-59 Borderline >59 Desirable Responsible Observer: CET TWO AUTOFILE (3006) Cholesterol,LDL 77 mg/dL (0-130) [facility] Work Phone: Comment on above: Note: LDL Guidelines : <100 Desirable 100-129 Near to/above Desirable 130-159 Borderline >159 Undesirable Direct (measured) LDL and calculated LDL are not interchangeable tests.Responsible Observer: CET TWO AUTOFILE (3006) Cholesterol,VLDL NOT REPORTED mg/dL (1-30) [facility] Work Phone: Cholesterol.total/Judy sterol in HDL [Mass ratio] 3.4 {ratio} (<5) [facility] Work Phone: Comment on above: Note: Responsible Ob kitchen food server: CET TWO AUTOFILE (3006) Erythrocyte distribution width (RBC) [Ratio] 13.2 % (11.8-14.4 ) [facility] Work Phone: Comment on above: Note: Responsible Ob kitchen food server: XNT AUTOFILE (3019) GFR, Amer >60 mL/min (>60) [facility] Work Phone: Comment on above: Note: Responsible Ob kitchen food server: CET TWO AUTOFILE (3006) GFR,non Amer 52 mL/min Low (>60) [facility] Work Phone: Comment on above: Note: Responsible Ob kitchen food server: CET TWO AUTOFILE (3006) Immature granulocytes (Bld) [#/Vol] 0 % (0) [facility] Work Phone: Comment on above: Note: Responsible Ob kitchen food server: XNT AUTOFILE (3019) MCHC (RBC) [Mass/Vol] 31.3 g/dL (28.4- 34.8 ) [facility] Work Phone: Comment on above: Note: Responsible Ob kitchen food server: XNT AUTOFILE (3019) Performing Lab: see note [facility] Work Phone: Comment on above: Note: [facility] [address] [place] [address] Platelet mean volume (Bld) [Entitic vol] 10.8 fL (8.1-13.5) [facility] Work Phone: Comment on above: Note: Responsible Ob kitchen food server: XNT AUTOFILE (3019) Reported Physicians See Note [facility] Work Phone: Comment on above: Note: Reported Physi cians:Ordering: Cotton, AimeeAttending: Cotton, AimeeReferring: Cotton, Karla Segmented neutrophils/100 WBC (Bld) 50 % (36-65) [facility] Work Phone: Comment on above: Note: Responsible Ob kitchen food server: XNT AUTOFILE (3019) Staging: See Note [facility] Work Phone: Comment on above: Note: Stage 1: Some kidney damage normal GFRStage 2: Mild kidney damage GFR 60-89Stage 3: Moderate kidney damage GFR 30-59Stage 4: Severe kidney damage GFR 15-29Stage 5: Severe kidney damage GFR <15ESRD - chronic treatment by dialysis or transplantResponsible Observer: CET TWO AUTOFILE (3006) Thyroid Stim. Horm. 1.05 mIU/L (0.30-5. 00 ) [facility] Work Phone: Comment on above: Note: Responsible Ob kitchen food server: CET TWO AUTOFILE (3006) Thyroxine, Free 0.93 ng/dL (0.93-1.70 ) [facility] Work Phone: Comment on above: Note: Responsible Ob kitchen food server: CET TWO AUTOFILE (3006) WBC Morphology NOT REPORTED [facility] Work Phone: [facility] 09-24-2018 Cholesterol [Mass/Vol] 171 mg/dL (<200) [facility] Work Phone: Comment on above: Note: Cholesterol Gu idelines: <200 Desirable 200-240 Borderline >240 Undesirable Responsible Observer: MORRIS LOUISE (MHT) (1933) Triglyceride [Mass/Vol] 400 mg/dL High (<150) [facility]: Comment on above: Note: Triglyceride G uidelines: <150 Desirable 150-199 Borderline 200-499 High >499 Very high Based on AHA Guidelines for fasting triglyceride, March 2012. Responsible Observer: MORRIS Boyd (MHT)) Hematologyon 09-24-2018 Basophils/100 WBC (Bld) 1 % (0-2) [facility] Work [facility]: Comment on above: Note: Responsible Ob kitchen food server: XNT AUTOFILE (3019) Eosinophils (Bld) [#/Vol] 0.15 10*3/uL (0.00-0.44 ) [facility] Work Phone: Comment on above: Note: Responsible Ob kitchen food server: XNT AUTOFILE (3019) Eosinophils/100 WBC (Bld) 2 % (1-4) [facility] Work Phone: Comment on above: Note: Responsible Ob kitchen food server: XNT AUTOFILE (3019) Hematocrit (Bld) [Volume fraction] 42.8 % (36.3-47.1 ) [facility] Work Phone: Comment on above: Note: Responsible Ob kitchen food server: XNT AUTOFILE (3019) Hemoglobin (Bld) [Mass/Vol] 13.7 g/dL (11.9-15.1 ) [facility] Work Phone: Comment on above: Note: Responsible Ob kitchen food server: XNT AUTOFILE (3019) Lymphocytes (Bld) [#/Vol] 1.73 10*3/uL (1.10-3.70 ) [facility] Work Phone: Comment on above: Note: Responsible Ob kitchen food server: XNT AUTOFILE (3019) Lymphocytes/100 WBC (Bld) 24 % (24-43) [facility] Work Phone: Comment on above: Note: Responsible Ob kitchen food server: XNT AUTOFILE (3019) MCH (RBC) [Entitic mass] 31.1 pg (25.2-33.5 ) [facility] Work Phone: Comment on above: Note: Responsible Ob kitchen food server: XNT AUTOFILE (9) MCV (RBC) [Entitic vol] 97.3 fL (82. 6-102. 9) [facility] Work Phone: Comment on above: Note: Responsible Ob kitchen food server: XNT AUTOFILE (9) Monocytes (Bld) [#/Vol] 0.64 10*3/uL (0.1 0-1.20 ) [facility] Work Phone: Comment on above: Note: Responsible Ob kitchen food server: XNT AUTOFILE (9) Monocytes/100 WBC (Bld) 9 % (3-12) [facility] Comment on above: Note: Responsible Ob kitchen food server: XNT AUTOFILE (9) Platelets (Bld) [#/Vol] NOT REPORTED [facility] Work Phone: Platelets (Bld) [#/Vol] 280 10*3/uL (138-453) [facility] Work Phone: Comment on above: Note: Responsible Ob kitchen food server: XNT AUTOFILE (3018) RBC (Bld) [#/Vol] 4.40 10*6/uL (3.95-5.11 ) [facility] Work Phone: Comment on above: Note: Responsible Ob kitchen food server: XNT AUTOFILE (3018) RBC morphology finding Nom (Bld) NOT REPORTED [facility] Work Phone: WBC (Bld) [#/Vol] 7.3 10*3/uL (3.5-11.3) [facility] Work Phone: Comment on above: Note: Responsible Ob kitchen food server: XNT AUTOFILE (3019) WBC (Bld) [#/Vol] 0.0 per_100_WBC (0.0) [facility] Work Phone: Comment on above: Note: Responsible Ob kitchen food server: XNT AUTOFILE (3019) Metabolic Panelon 09-24-2018 Albumin [Mass/Vol] 4.2 g/dL (3.5-5.2) [facility] Work Phone: Comment on above: Note: Responsible Ob kitchen food server: MORRIS SnyderAnmol) ASPEN (1933) ALT [Catalytic activity/Vol] 16 U/L (5-33) [facility] Work Phone: Comment on above: Note: Responsible Ob kitchen food server: MORRIS LOUISE (MHT) (1932) Anion gap [Moles/Vol] 16 mmol/L [facility] Work Phone: Comment on above: Note: Responsible Ob kitchen food server: MORRIS (KATYA) ASPEN (1932) AST [Catalytic activity/Vol] 14 U/L (<32) [facility] Work Phone: Comment on above: Note: Responsible Ob kitchen food server: MORRIS HUBBARD) ASPEN (1932) Bilirubin [Mass/Vol] mg/dL Low (0.3-1.2) [facility] Work Phone: Comment on above: Note: Responsible Ob kitchen food server: MORRIS HUBBARD) ASPEN (1932) Calcium [Mass/Vol] 11.2 mg/dL High (8.6-10.4) [facility] Work Phone: Comment on above: Note: Responsible Ob kitchen food server: MORRIS HUBBARD) ASPEN (1932) Chloride [Moles/Vol] 103 mmol/L (98-107) [facility] Work Phone: Comment on above: Note: UNABLE TO CALC ULATE GAP, SPECIMEN REPEATEDCORRECTED ON 09/24 AT 1740: PREVIOUSLY REPORTED 112Responsible Observer: MORRIS LOUISE (MHT) (1932) CO2 [Moles/Vol] 22 mmol/L (20-31) [facility] Work Phone: Comment on above: Note: UNABLE TO CALC ULATE GAP, SPECIMEN REPEATEDCORRECTED ON 09/24 AT 1740: PREVIOUSLY REPORTED 24Responsible Observer: MORRIS LOUISE (MHT) (1932) Creatinine [Mass/Vol] 0.93 mg/dL High (0.50- 0.90 ) [facility] Work Phone: Comment on above: Note: Responsible Ob kitchen food server: MORRIS (KATYA) ASPEN (1932) Glucose [Mass/Vol] 91 mg/dL (70-99) [facility] Work Phone: Comment on above: Note: Responsible Ob kitchen food server: MORRIS LOUISE (MHT) (1932) Potassium [Moles/Vol] 4.5 mmol/L (3.7-5.3) [facility] Work Phone: Comment on above: Note: UNABLE TO CALC ULATE GAP, SPECIMEN REPEATEDCORRECTED ON 09/24 AT 1740: PREVIOUSLY REPORTED 4.0Responsible Observer: MORRIS LOUISE (MHT) (1932) Protein [Mass/Vol] 7.0 g/dL (6.4-8.3) [facility] Work Phone: Comment on above: Note: Responsible Ob kitchen food server: MORRIS LOUISE (MHT) (1932) Sodium [Moles/Vol] 141 mmol/L (135-144) [facility] Work Phone: Comment on above: Note: UNABLE TO CALC ULATE GAP, SPECIMEN REPEATEDCORRECTED ON 09/24 AT 1740: PREVIOUSLY REPORTED 133Responsible Observer: MORRIS LOUISE (MHT) (1932) Urea nitrogen [Mass/Vol] 17 mg/dL (8-23) [facility] Work Phone: Comment on above: Note: Responsible Ob kitchen food server: MORRIS Boyd (MHT)) Otheron 09-24-2018 (cont.) See Note [facility] Work Phone: Comment on above: Note: Average GFR fo r 60-69 years old: 85 mL/min/1.73sq mChronic Kidney Disease: <60 mL/min/1.73sq mKidney failure: <15 mL/min/1.73sq m eGFR calculated using average adult body mass. Additional eGFR calculator available at: http://www.[employer].Discera/multiple_crcl_2012.htm Responsible Observer: MORRIS Snyder (MHT)1932) Abs. Basophil 0.04 k/uL (0.00-0.20 ) [facility] Work Phone: Comment on above: Note: Responsible Ob kitchen food server: XNT AUTOFILE (3018) Abs.Imm.Granulocyte 0.03 k/uL (0.00-0. 30 ) [facility] Work Phone: Comment on above: Note: Responsible Ob kitchen food server: XNT AUTOFILE (9) Abs.Neutrophil (Seg) 4.73 k/uL (1.50-8 .10 ) [facility] Work Phone: Comment on above: Note: Responsible Ob kitchen food server: XNT AUTOFILE (9) Albumin/Glob Ratio 1.5 (1.0-2.5) [facility] Work Phone: Comment on above: Note: Responsible Ob kitchen food server: MORRIS Snyder (MHT)1932) Alkaline Phos 124 U/L High (35-104) [facility] Work Phone: Comment on above: Note: Responsible Ob kitchen food server: MORRIS Boyd (MHT)) Auto Diff Performed NOT REPORTED [facility]: BUN/CRE Ratio 18 (9-20) [facility] Work Phone: Comment on above: Note: Responsible Ob kitchen food server: MORRIS LOUISE (MHT) (1932) Cholesterol,HDL 42 mg/dL (>40) [facility] Work Phone: Comment on above: Note: HDL Guidelines : <40 Undesirable 40-59 Borderline >59 Desirable Responsible Observer: MORRIS Snyder (MHT)1932) Cholesterol,LDL 49 mg/dL (0-130) [facility] Work Phone: Comment on above: Note: LDL Guidelines : <100 Desirable 100-129 Near to/above Desirable 130-159 Borderline >159 Undesirable Direct (measured) LDL and calculated LDL are not interchangeable tests.Responsible Observer: MORRIS Snyder (MHT)Padmini) Cholesterol,VLDL NOT REPORTED mg/dL (1-30) [facility] Work Phone: Cholesterol.total/Judy sterol in HDL [Mass ratio] 4.1 {ratio} (<5) [facility] Work Phone: Comment on above: Note: Responsible Ob kitchen food server: MORRIS (T) ASPEN (1932) Erythrocyte distribution width (RBC) [Ratio] 12.7 % (11.8-14.4 ) [facility] Work Phone: Comment on above: Note: Responsible Ob kitchen food server: XNT AUTOFILE (3018) GFR, Amer >60 mL/min (>60) [facility] Work Phone: Comment on above: Note: Responsible Ob kitchen food server: MORRIS (MHT) ASPEN (1932) GFR,non Amer >60 mL/min (>60) [facility] Work Phone: Comment on above: Note: Responsible Ob kitchen food server: MORRIS (MHT) ASPEN (1932) Immature granulocytes (Bld) [#/Vol] 0 % (0) [facility] Work Phone: Comment on above: Note: Responsible Ob kitchen food server: XNT AUTOFILE (3018) MCHC (RBC) [Mass/Vol] 32.0 g/dL (28.4- 34.8 ) [facility] Work Phone: Comment on above: Note: Responsible Ob kitchen food server: XNT AUTOFILE (3018) Performing Lab: see note [facility] Work Phone: Comment on above: Note: [facility] [address] [place] [address] Platelet mean volume (Bld) [Entitic vol] 11.0 fL (8.1-13.5) [facility] Work Phone: Comment on above: Note: Responsible Ob kitchen food server: XNT AUTOFILE (3018) Reported Physicians See Note [facility] Work Phone: Comment on above: Note: Reported Physi cians:Ordering: Cotton, AimeeAttending: Cotton, AimeeReferring: Cotton, Karla Segmented neutrophils/100 WBC (Bld) 64 % (36-65) [facility] Work Phone: Comment on above: Note: Responsible Ob kitchen food server: XNT AUTOFILE (3535) Staging: See Note [facility] Work Phone: Comment on above: Note: Stage 1: Some kidney damage normal GFRStage 2: Mild kidney damage GFR 60-89Stage 3: Moderate kidney damage GFR 30-59Stage 4: Severe kidney damage GFR 15-29Stage 5: Severe kidney damage GFR <15ESRD - chronic treatment by dialysis or transplantResponsible Observer: MORRIS LOUISE (MHT) (1932) Thyroid Stim. Horm. 1.08 mIU/L (0.30-5. 00 ) [facility] Work Phone: Comment on above: Note: Responsible Ob kitchen food server: MORRIS SnyderAnmol) ASPEN (1932) Thyroxine, Free 0.97 ng/dL (0.93-1.70 ) [facility] Work Phone: Comment on above: Note: Responsible Ob kitchen food server: MORRIS SnyderTremaine LOUISE (1932) WBC Morphology NOT REPORTED [facility] Work Phone: Hematologyon 07-31-2018 pH (Bld) Negative Normal (5.0/6.0/6 .5/7.0/7.5 /8.0/8.5) [facility] Work Phone: Laboratory - Chemistry and C hemistry - challengeOrdered By: Karla Clark on 07-31-2018 Bilirubin [Mass/Vol] Negative Normal (Neg/Sm all /Moderate/ Large) [facility] Work Phone: Glucose [Mass/Vol] Negative Normal (NEG/100/ 2 50/500/100 or more) [facility] Work Phone: Ketones Ql (U) Negative Normal (Neg/Small /Moderate/ Large) [facility] Work Phone: pH (Bld) Negative Normal (5.0/6.0/6 .5/7.0/7.5 /8.0/8.5) [facility] Work Phone: Protein [Mass/Vol] Negative Normal (Neg/Trac e /30/100/30 or more) [facility] Work Phone: Urobilinogen (U) [Mass/Vol] Negative Normal (t) [facility] Work Phone: Specific gravity (U) [Rel density] 1.000 Normal (1.000/1.0 05/1.101/1 .015/1.020 /1.025/1.0 30) [facility] Work Phone: Laboratory - UrinalysisOrder ed By: Karla Clark on 07-31-2018 Nitrite Ql (U) Negative Normal (Neg/Pos) [facility] Work Phone: Metabolic Panelon 07-31-2018 Bilirubin [Mass/Vol] Negative Normal (Neg/Sm all /Moderate/ Large) [facility] Work Phone: Glucose [Mass/Vol] Negative Normal (NEG/100/ 2 50/500/100 or more) [facility] Work Phone: Protein [Mass/Vol] Negative Normal (Neg/Trac e /30/100/30 or more) [facility] Work Phone: No Panel InformationOrdered By: Karla Clark on 07-31-2018 Blood Negative Normal (Neg/NH-Tr pedro/NH-Mod erate/H-Tr pedro/H-smal l/H-Modera t) [facility] Work Phone: All Values Normal abnormal Abnormal (NORMAL) [facility] Work Phone: Leukocyates trace Abnormal (Neg/Trace /Small/Mod erate/Larg e) [facility] Work Phone: Otheron 07-31-2018 Blood Negative Normal (Neg/NH-Tr pedro/NH-Mod erate/H-Tr pedro/H-smal l/H-Modera t) [facility] Work Phone: Nitrite Ql (U) Negative Normal (Neg/Pos) [facility] Work Phone: Urobilinogen Qn (U) Negative Normal (t) [facility] Work Phone: Urinalysison 07-31-2018 Ketones Ql (U) Negative Normal (Neg/Small /Moderate/ Large) [facility] Work Phone: Cardiacon 09-26-2017 Cholesterol mass conc 195 mg/dL Invalid Interpretation Code <200 [facility] Cholesterol mass conc 195 mg/dL Invalid Interpretation Code <200 [facility] Hematologyon 09-26-2017 Basophils Auto #/vol (Bld) 0.070 10*3/uL Invalid Interpretation Code 0.00-0.20 [facility] Basophils/100 WBC Auto (Bld) 1 % Invalid Interpretation Code 0-2 [facility] Eosinophils Auto #/vol (Bld) 2 10*3/uL Invalid Interpretation Code 1-4 [facility] Eosinophils Auto #/vol (Bld) 0.140 10*3/uL Invalid Interpretation Code 0.00-0.44 [facility] Erythrocyte distribution width Auto Ratio (RBC) 13.2 % Invalid Interpretation Code 11.8-14.4 [facility] Hematocrit Auto Volume Fraction (Bld) 44.2 % Invalid Interpretation Code 36.3-47.1 [facility] Hemoglobin mass conc (Bld) 13.5 g/dL Invalid Interpretation Code 11.9-15.1 [facility] Lymphocytes Auto #/vol (Bld) 31 10*3/uL Invalid Interpretation Code 24-43 [facility] Lymphocytes Auto #/vol (Bld) 2.240 10*3/uL Invalid Interpretation Code 1.10-3.70 [facility] MCH Auto Entitic mass (RBC) 31.0 pg Invalid Interpretation Code 25.2-33.5 [facility] MCHC Auto mass conc (RBC) 30.5 g/dL Invalid Interpretation Code 28.4-34.8 [facility] MCV Auto Entitic volume (RBC) 101.4 fL Invalid Interpretation Code 82.6-102.9 [facility] Monocytes Auto #/vol (Bld) 9 10*3/uL Invalid Interpretation Code 3-12 [facility] Monocytes Auto #/vol (Bld) 0.640 10*3/uL Invalid Interpretation Code 0.10-1.20 [facility] Neutrophils Auto #/vol (Bld) 4.10 10*3/uL Invalid Interpretation Code 1.50-8.10 [facility] Platelet mean volume Auto Entitic volume (Bld) 11.7 fL Invalid Interpretation Code 8.1-13.5 [facility] RBC Auto #/vol (Bld) 4.36 10*6/uL Invalid Interpretation Code 3.95-5.11 [facility] WBC Auto #/vol (Bld) 7.2 10*3/uL Invalid Interpretation Code 3.5-11.3 [facility] Basophils Auto #/vol (Bld) 0.070 10*3/uL Invalid Interpretation Code 0.00-0.20 [facility] Basophils/100 WBC (Bld) 1 % 0-2 [facility] Basophils/100 WBC Auto (Bld) 1 % Invalid Interpretation Code 0-2 [facility] Eosinophils 0.14 10*3/uL Invalid Interpretation Code 0.00-0.44 [facility] Eosinophils 2 10*3/uL Invalid Interpretation Code 1-4 [facility] Eosinophils #/vol (Bld) 0.14 10*3/uL 0.00-0.44 [facility] Eosinophils #/vol (Bld) 2 10*3/uL 1-[facility] Eosin[facility] Auto #/vol (Bld) 0.140 10*3/uL Invalid Interpretation Code 0.00-0.44 [facility] Erythrocyte distribution width Auto Ratio (RBC) 13.2 % Invalid Interpretation Code 11.8-14.4 [facility] Erythrocytes (RBC) 4.36 10*6/uL Invalid Interpretation Code 3.95-5.11 [facility] Erythrocytes (RBC) NOT REPORTED Invalid Interpretation Code [facility] Erythrocytes (RBC) 0.0 10*6/uL Invalid Interpretation Code 0.0 [facility] Hematocrit (HCT) 44.2 % Invalid Interpretation Code 36.3-47.1 [facility] Hematocrit Volume Fraction (Bld) 44.2 % 36.3-47.1 [facility] Hemoglobin mass conc (Bld) 13.5 g/dL Invalid Interpretation Code 11.9-15.1 [facility] Lymphocytes 2.24 10*3/uL Invalid Interpretation Code 1.10-3.70 [facility] Lymphocytes 31 10*3/uL Invalid Interpretation Code 24-43 [facility] Lymphocytes #/vol (Bld) 31 10*3/uL 24-43 [facility] Lymphocytes #/vol (Bld) 2.24 10*3/uL 1.10-3.70 [facility] Lymphocytes Auto #/vol (Bld) 2.240 10*3/uL Invalid Interpretation Code 1.10-3.70 [facility] MCH 31.0 pg Invalid Interpretation Code 25.2-33.5 [facility] MCH Entitic mass (RBC) 31.0 pg 25.2-33.5 [facility] MCHC mass conc (RBC) 30.5 g/dL Invalid Interpretation Code 28.4-34.8 [facility] MCV 101.4 fL Invalid Interpretation Code 82.6-102.9 [facility] MCV Entitic volume (RBC) 101.4 fL 82.6-102.9 [facility] Monocytes 0.64 10*3/uL Invalid Interpretation Code 0.10-1.20 [facility] Monocytes 9 10*3/uL Invalid Interpretation Code 3-12 [facility] Monocytes #/vol (Bld) 0.64 10*3/uL 0.10-1.20 [facility] Monocytes #/vol (Bld) 9 10*3/uL 3-12 [facility] Monocytes Auto #/vol (Bld) 0.640 10*3/uL Invalid Interpretation Code 0.10-1.20 [facility] Neutrophils Auto #/vol (Bld) 4.10 10*3/uL Invalid Interpretation Code 1.50-8.10 [facility] Platelet mean volume (PMV) 11.7 fL Invalid Interpretation Code 8.1-13.5 [facility] RBC #/vol (Bld) 4.36 10*6/uL 3.95-5.11 [facility] WBC #/vol (Bld) 7.2 10*3/uL 3.5-11.3 [facility] WBC (Leukocytes) 7.2 10*3/uL Invalid Interpretation Code 3.5-11.3 [facility] Metabolic Panelon 09-26-2017 Albumin mass conc 4.1 g/dL Invalid Interpretation Code 3.5-5.2 [facility] ALT enzyme act/vol 28 U/L Invalid Interpretation Code 5-33 [facility] Anion gap 3 molar conc 9 mmol/L Invalid Interpretation Code 9-17 [facility] AST enzyme act/vol 19 U/L Invalid Interpretation Code <32 [facility] Bilirubin mass conc 0.250 mg/dL Invalid Interpretation Code 0.3-1.2 [facility] Calcium mass conc 10.80 mg/dL Invalid Interpretation Code 8.6-10.4 [facility] Chloride molar conc 103 mmol/L Invalid Interpretation Code 98-107 [facility] CO2 molar conc 27 mmol/L Invalid Interpretation Code 20-31 [facility] Creatinine mass conc 0.83 mg/dL Invalid Interpretation Code 0.50-0.90 [facility] Glucose mass conc 95 mg/dL Invalid Interpretation Code 70-99 [facility] Potassium molar conc 4.8 mmol/L Invalid Interpretation Code 3.7-5.3 [facility] Protein mass conc 7.0 g/dL Invalid Interpretation Code 6.4-8.3 [facility] Sodium molar conc 139 mmol/L Invalid Interpretation Code 135-144 [facility] Urea nitrogen mass conc 22.0 mg/dL Invalid Interpretation Code 8-23 [facility] Albumin mass conc 4.1 g/dL Invalid Interpretation Code 3.5-5.2 [facility] ALT enzyme act/vol 28 U/L Invalid Interpretation Code 5-33 [facility] Anion gap 9 mmol/L Invalid Interpretation Code 9-17 [facility] Anion gap molar conc 9 mmol/L 9-17 [facility] AST enzyme act/vol 19 U/L Invalid Interpretation Code <32 [facility] Bilirubin mass conc 0.25 mg/dL Invalid Interpretation Code 0.3-1.2 [facility] Bilirubin mass conc 0.250 mg/dL Invalid Interpretation Code 0.3-1.2 [facility] BUN (urea nitrogen) 22 mg/dL Invalid Interpretation Code 8-23 [facility] Calcium mass conc 10.8 mg/dL Invalid Interpretation Code 8.6-10.4 [facility] Calcium mass conc 10.80 mg/dL Invalid Interpretation Code 8.6-10.4 [facility] Chloride molar conc 103 mmol/L Invalid Interpretation Code 98-107 [facility] CO2 27 mmol/L Invalid Interpretation Code 20-31 [facility] Creatinine mass conc 0.83 mg/dL Invalid Interpretation Code 0.50-0.90 [facility] eGFR (non-black) mL/min/{1.73_m2} Invalid Interpretation Code >60 [facility] Glucose mass conc 95 mg/dL Invalid Interpretation Code 70-99 [facility] Potassium molar conc 4.8 mmol/L Invalid Interpretation Code 3.7-5.3 [facility] Protein mass conc 7.0 g/dL Invalid Interpretation Code 6.4-8.3 [facility] Sodium molar conc 139 mmol/L Invalid Interpretation Code 135-144 [facility] Urea nitrogen mass conc 22.0 mg/dL Invalid Interpretation Code 8-23 [facility] Urea nitrogen mass conc 22 mg/dL 8-23 [facility] Otheron 09-26-2017 Cholesterol.total/Judy sterol in HDL mass ratio 3.7 {ratio} Invalid Interpretation Code <5 [facility] Immature granulocytes #/vol (Bld) 0 10*3/uL Invalid Interpretation Code 0 [facility] Urea nitrogen/Creatinine mass ratio (Bld) 27 Invalid Interpretation Code 9-20 [facility] NOT REPORTED Invalid Interpretation Code [facility] 205 Invalid Interpretation Code <150 [facility] 101 Invalid Interpretation Code 0-130 [facility] 53 Invalid Interpretation Code >40 [facility] 57 Invalid Interpretation Code 36-65 [facility] 0.0 Invalid Interpretation Code 0.0 [facility] 0.96 Invalid Interpretation Code 0.93-1.70 [facility] 226 Invalid Interpretation Code 138-453 [facility] >60 Invalid Interpretation Code >60 [facility] <0.03 Invalid Interpretation Code 0.00-0.30 [facility] 1.4 Invalid Interpretation Code 1.0-2.5 [facility] 140 Invalid Interpretation Code 35-104 [facility] 1.06 Invalid Interpretation Code 0.30-5.00 [facility] [employer] Cholesterol.total/Judy sterol in HDL mass ratio 3.7 {ratio} Invalid Interpretation Code <5 [facility] Erythrocyte distribution width Ratio (RBC) 13.2 % 11.8-14.4 [facility] Granulocytes/100 WBC (Bld) % Invalid Interpretation Code 0.00-0.30 [facility] [employer] Immature granulocytes #/vol (Bld) 0 10*3/uL Invalid Interpretation Code 0 [facility] [employer] MCHC mass conc (RBC) 30.5 g/dL 28.4-34.8 [facility] Platelet mean volume Entitic volume (Bld) 11.7 fL 8.1-13.5 [facility] [employer] Urea nitrogen/Creatinine mass ratio (Bld) 27 Invalid Interpretation Code 9-20 [facility] [employer] NOT REPORTED Invalid Interpretation Code [facility] [employer] 4.10 Invalid Interpretation Code 1.50-8.10 [facility] 205 Invalid Interpretation Code <150 [facility] 53 Invalid Interpretation Code >40 [facility] 1.06 Invalid Interpretation Code 0.30-5.00 [facility] 57 Invalid Interpretation Code 36-65 [facility] [employer] 0.96 Invalid Interpretation Code 0.93-1.70 [facility] 27 Invalid Interpretation Code 9-20 [facility] 226 Invalid Interpretation Code 138-453 [facility] 0.07 Invalid Interpretation Code 0.00-0.20 [facility] 1.4 Invalid Interpretation Code 1.0-2.5 [facility] 140 Invalid Interpretation Code 35-104 [facility] 101 Invalid Interpretation Code 0-130 [facility] 7.0 Invalid Interpretation Code 6.4-8.3 [facility] 28 Invalid Interpretation Code 5-33 [facility] 19 Invalid Interpretation Code <32 [facility] 0.0 Invalid Interpretation Code 0.0 [facility] >60 Invalid Interpretation Code >60 [facility] <0.03 Invalid Interpretation Code 0.00-0.30 [facility] Otheron 09-17-2017 S. pyogenes Ag IA Ql (Unsp spec) Negative Invalid Interpretation Code [facility] S. pyogenes Ag IA Ql (Unsp spec) Negative Invalid Interpretation Code [facility] Otheron 05-14-2017 2 Invalid Interpretation Code [facility] 2 Invalid Interpretation Code [facility] Metabolic Panelon 04-18-2017 Hemoglobin A1c/Hemoglobin.total mass fraction (Bld) 5.0 % Invalid Interpretation Code < 7 [facility] Hemoglobin A1c/Hemoglobin.total mass fraction (Bld) 5.0 % Invalid Interpretation Code < 7 [facility] Otheron 01-01-2017 Negative Invalid Interpretation Code [facility] 0=No Invalid Interpretation Code [facility] 4 Invalid Interpretation Code [facility] Risk Level 2= 4-6 Invalid Interpretation Code [facility] [facility] 0= N/A Invalid Interpretation Code [facility] 0-N/A Invalid Interpretation Code [facility] 1=Controlled Invalid Interpretation Code [facility] 1=Yes Invalid Interpretation Code [facility] 0 Invalid Interpretation Code [facility] Negative Invalid Interpretation Code [facility] 0 Invalid Interpretation Code [facility] 0=No Invalid Interpretation Code [facility] 4 Invalid Interpretation Code [facility] Risk Level 2= 4-6 Invalid Interpretation Code [facility] 0= N/A Invalid Interpretation Code [facility] 0-N/A Invalid Interpretation Code [facility] 1=Controlled Invalid Interpretation Code [facility] 1=Yes Invalid Interpretation Code [facility] Otheron 12-06-2016 Negative Invalid Interpretation Code [facility] Negative Invalid Interpretation Code [facility] Otheron 11-06-2016 Urinalysis specialist review [employer] (Unsp spec) mod leuk, wnl Invalid Interpretation Code [facility] Urinalysis specialist review [employer] (Unsp spec) mod leuk, wnl Invalid Interpretation Code [facility] Otheron 08-21-2016 Not ready Invalid Interpretation Code [facility] No Invalid Interpretation Code [facility] Contemplation Invalid Interpretation Code [facility] Benefits of quitting Invalid Interpretation Code [facility] 10.0 Count Invalid Interpretation Code [facility] 7 Invalid Interpretation Code [facility] Charly Invalid Interpretation Code [facility] Current Invalid Interpretation Code [facility] Not ready Invalid Interpretation Code [facility] No Invalid Interpretation Code [facility] Contemplation Invalid Interpretation Code [facility] Benefits of quitting Invalid Interpretation Code [facility] 10.0 Count Invalid Interpretation Code [facility] 7 Invalid Interpretation Code [facility] Charly Invalid Interpretation Code [facility] Current Invalid Interpretation Code [facility] Metabolic Panelon 06-12-2016 Protein mass conc Provide self-help materials Invalid Interpretation Code [facility] Protein Provide self-help materials Invalid Interpretation Code [facility] Otheron 06-12-2016 Yes Invalid Interpretation Code [facility] Contemplation Invalid Interpretation Code [facility] Strong advice to quit Invalid Interpretation Code [facility] Woman Invalid Interpretation Code [facility] 10.0 Count Invalid Interpretation Code [facility] 7 Invalid Interpretation Code [facility] charly e Invalid Interpretation Code [facility] Current Invalid Interpretation Code [facility] Provide self-help materials Invalid Interpretation Code [facility] Yes Invalid Interpretation Code [facility] Contemplation Invalid Interpretation Code [facility] Strong advice to quit Invalid Interpretation Code [facility] Woman Invalid Interpretation Code [facility] 10.0 Count Invalid Interpretation Code [facility] 7 Invalid Interpretation Code [facility] charly segundo Invalid Interpretation Code [facility] Current Invalid Interpretation Code [facility] Tasia 04-10-2016 Pre-contemplation Invalid Interpretation Code [facility] Not Ready Invalid Interpretation Code [facility] Benefits of quitting Invalid Interpretation Code [facility] No Invalid Interpretation Code [facility] Woman Invalid Interpretation Code [facility] 10.0 Count Invalid Interpretation Code [facility] 7 Invalid Interpretation Code [facility] Current Invalid Interpretation Code [facility] Charly Invalid Interpretation Code [facility] Not Ready Invalid Interpretation Code [facility] Pre-contemplation Invalid Interpretation Code [facility] No Invalid Interpretation Code [facility] Benefits of quitting Invalid Interpretation Code [facility] Woman Invalid Interpretation Code [facility] 10.0 Count Invalid Interpretation Code [facility] 7 Invalid Interpretation Code [facility] Current Invalid Interpretation Code [facility] Charly Invalid Interpretation Code [facility] Otheron 03-20-2016 10.0 Count Invalid Interpretation Code [facility] Woman Invalid Interpretation Code [facility] Not Ready Invalid Interpretation Code [facility] No Invalid Interpretation Code [facility] Contemplation Invalid Interpretation Code [facility] Current Invalid Interpretation Code [facility] Charly Purnima Invalid Interpretation Code [facility] 7 Invalid Interpretation Code [facility] Benefits of quitting Invalid Interpretation Code [facility] 10.0 Count Invalid Interpretation Code [facility] Woman Invalid Interpretation Code [facility] Not Ready Invalid Interpretation Code [facility] No Invalid Interpretation Code [facility] Contemplation Invalid Interpretation Code [facility] Current Invalid Interpretation Code [facility] Charly Purnima Invalid Interpretation Code [facility] 7 Invalid Interpretation Code [facility] Benefits of quitting Invalid Interpretation Code [facility] Otheron 12-08-2015 Urinalysis specialist review [employer] (Unsp spec) WNL Lg Justina Invalid Interpretation Code [facility] Urinalysis specialist review [employer] (Unsp spec) WNL Lg Justina Invalid Interpretation Code [facility] Otheron 09-09-2015 Negative Invalid Interpretation Code NEGATIVE [facility] Negative Invalid Interpretation Code NEGATIVE [facility] Otheron 09-08-2015 290 Invalid Interpretation Code [facility] 280 Invalid Interpretation Code [facility] Negative Invalid Interpretation Code [facility] 290 Invalid Interpretation Code [facility] 280 Invalid Interpretation Code [facility] Negative Invalid Interpretation Code [facility] Vital Signs Date Time Vital Sign Value Performing Clinician Facility 02-08-2025 12:18-0400 Body height 161.29 cm [facility] 02-08-2025 12:18-0400 Body mass index (BMI) [Ratio] 24 kg/m2 [facility] 02-08-2025 12:18-0400 Body weight 62.59 kg [facility] 12-17-2024 08:48-0400 Body height 160 cm Héctor Turner MD Work Phone: [facility] 12-17-2024 08:48-0400 Body mass index (BMI) [Ratio] 25.87 kg/m2 Héctor Turner MD Work Phone: [facility] 12-17-2024 08:48-0400 Body weight 66.22 kg Héctor Turner MD Work Phone: [facility] 12-17-2024 08:48-0400 Diastolic blood pressure 70 mm[Hg] Héctor Turner MD Work Phone: [facility] 12-17-2024 08:48-0400 Systolic blood pressure 121 mm[Hg] Héctor Turner MD Work Phone: [facility] 04-23-2024 21:19-0500 Body temperature 97.9 [degF] Sami Jasso MD Work Phone: [facility] 04-23-2024 21:19-0500 Diastolic blood pressure 77 mm[Hg] Sami Jasso MD Work Phone: [facility] 04-23-2024 21:19-0500 Heart rate 60 /min Sami Jasso MD Work Phone: [facility] 04-23-2024 21:19-0500 Respiratory rate 16 /min Sami Jasso MD Work Phone: [facility] 04-23-2024 21:19-0500 SaO2% (BldA) [Mass fraction] 98 % Sami Jasso MD Work Phone: [facility] 04-23-2024 21:19-0500 Systolic blood pressure 144 mm[Hg] Sami Jasso MD Work Phone: [facility] 04-23-2024 17:08-0500 Heart rate 58 /min Alberta Medeiros MD Work Phone: [facility] 04-23-2024 17:08-0500 Respiratory rate 16 /min Alberta Medeiros MD Work Phone: [facility] 04-23-2024 15:15-0500 Diastolic blood pressure 79 mm[Hg] Alberta Medeiros MD Work Phone: [facility] 04-23-2024 15:15-0500 Systolic blood pressure 156 mm[Hg] Alberta Medeiros MD Work Phone: [facility] 04-23-2024 14:20-0500 SaO2% (BldA) [Mass fraction] 100 % Alberta Medeiros MD Work Phone: [facility] 04-23-2024 13:42-0500 Body mass index (BMI) [Ratio] 26.57 kg/m2 Alberta Medeiros MD Work Phone: [facility] 04-23-2024 13:42-0500 Body temperature 97.9 [degF] Alberta Medeiros MD Work Phone: [facility] 04-23-2024 13:42-0500 Body weight 68.04 kg Alberta Medeiros MD Work Phone: [facility] 02-18-2024 15:05-0400 Body height 161.3 cm Christopher Ofelia DO Work Phone: [facility] 02-18-2024 15:05-0400 Body mass index (BMI) [Ratio] 26.15 kg/m2 Christopher Ofelia DO Work Phone: [facility] 02-18-2024 15:05-0400 Body weight 68.04 kg Christopher Ofelia DO Work Phone: [facility] 02-18-2024 15:05-0400 Diastolic blood pressure 88 mm[Hg] Christopher Ofelia DO Work Phone: [facility] 02-18-2024 15:05-0400 Systolic blood pressure 138 mm[Hg] Christopher Ofelia DO Work Phone: [facility] 01-27-2024 08:41-0400 Body height 162.56 cm Karla Clark [employer] Work Phone: [facility] Work Phone: 01-27-2024 08:41-0400 Body mass index (BMI) [Ratio] 25.6 kg/m2 Karla Clark [employer] Work Phone: [facility] Work Phone: 01-27-2024 08:41-0400 Body surface area Derived from formula 1.7 m2 Karla Floresallegra CROOKS Work Phone: [facility] Work Phone: 01-27-2024 08:41-0400 Body weight 67.59 kg Karla Maber [employer]UTE [employer] Work Phone: [facility] Work Phone: 01-27-2024 08:41-0400 Diastolic blood pressure 78 mm[Hg] Karla Clark [employer] Work Phone: [facility] Work Phone: 01-27-2024 08:41-0400 Heart rate 76 /min Karla Clark [employer] Work Phone: [facility] Work Phone: 01-27-2024 08:41-0400 SaO2% (BldA) [Mass fraction] 97 % Karla Clark [employer]UTE [employer] Work Phone: [facility] Work Phone: 01-27-2024 08:41-0400 Systolic blood pressure 134 mm[Hg] Karla Clark MINUTE [employer] Work Phone: [facility] Work Phone: 12-24-2023 15:30-0400 Body temperature 97.7 [degF] SCRAP SEPARATOR Karla Clark Work Phone: [facility] 12-24-2023 15:30-0400 Diastolic blood pressure 81 mm[Hg] SCRAP SEPARATOR Karla Clark Work Phone: [facility] 12-24-2023 15:30-0400 Heart rate 68 /min SCRAP SEPARATOR Karla Clark Work Phone: [facility] 12-24-2023 15:30-0400 Respiratory rate 16 /min SCRAP SEPARATOR Karla Clark Work Phone: [facility] 12-24-2023 15:30-0400 SaO2% (BldA) [Mass fraction] 97 % SCRAP SEPARATOR Karla Clark Work Phone: [facility] 12-24-2023 15:30-0400 Systolic blood pressure 121 mm[Hg] SCRAP SEPARATOR Karla Amber Work Phone: [facility] 12-23-2023 14:14-0400 Body height 160.02 cm SCRAP SEPARATOR Karla Clark Work Phone: [facility] 12-23-2023 08:54-0400 Body weight 67.05 kg SCRAP SEPARATOR Karla Clark Work Phone: [facility] 12-16-2023 13:02-0400 Body height 160.02 cm SCRAP SEPARATOR Karla Floresen Work Phone: [facility] 12-16-2023 13:02-0400 Body temperature 98 [degF] SCRAP SEPARATOR Karla Clark Work Phone: [facility] 12-16-2023 13:02-0400 Body weight 63.5 kg SCRAP SEPARATOR Karla Clark Work Phone: [facility] 12-16-2023 13:02-0400 Diastolic blood pressure 75 mm[Hg] SCRAP SEPARATOR Karla Floresen Work Phone: [facility] 12-16-2023 13:02-0400 Heart rate 74 /min SCRAP SEPARATOR Karla Clark Work Phone: [facility] 12-16-2023 13:02-0400 Respiratory rate 16 /min SCRAP SEPARATOR Karla Clark Work Phone: [facility] 12-16-2023 13:02-0400 SaO2% (BldA) [Mass fraction] 100 % SCRAP SEPARATOR Karla Clark Work Phone: [facility] 12-16-2023 13:02-0400 Systolic blood pressure 127 mm[Hg] SCRAP SEPARATOR Karla Floresen Work Phone: [facility] 10-04-2023 14:17-0400 Diastolic blood pressure 88 mm[Hg] Karla Amber MIN[employer] Work Phone: [facility] Comment on above: manual cuff 10-04-2023 14:17-0400 Systolic blood pressure 134 mm[Hg] Karlajulius Clark MINUTE CLERK [employer] Work Phone: [facility] Comment on above: manual cuff 10-04-2023 13:33-0400 Diastolic blood pressure 93 mm[Hg] Karla Clark CNP Work Phone: [facility] Work Phone: 10-04-2023 13:33-0400 Systolic blood pressure 148 mm[Hg] Karla Clark CNP Work Phone: [facility] Work Phone: 10-04-2023 13:22-0400 Body height 162.56 cm Karla Clark CNP Work Phone: [facility] Work Phone: 10-04-2023 13:22-0400 Body mass index (BMI) [Ratio] 25.2 kg/m2 Karla Clark CNP Work Phone: [facility] Work Phone: 10-04-2023 13:22-0400 Body surface area Derived from formula 1.7 m2 Karla Clark CNP Work Phone: [facility] Work Phone: 10-04-2023 13:22-0400 Body weight 66.68 kg Karla Clark CNP Work Phone: [facility] Work Phone: 10-04-2023 13:22-0400 Diastolic blood pressure 88 mm[Hg] Karla Clark CNP Work Phone: [facility] Work Phone: 10-04-2023 13:22-0400 Heart rate 77 /min Karla Clark CNP Work Phone: [facility] Work Phone: 10-04-2023 13:22-0400 SaO2% (BldA) [Mass fraction] 98 % Karla Clark CNP Work Phone: [facility] Work Phone: 10-04-2023 13:22-0400 Systolic blood pressure 142 mm[Hg] Karla Clark CNP Work Phone: [facility] Work Phone: 08-20-2023 16:49-0400 Diastolic blood pressure 73 mm[Hg] [facility] 08-20-2023 16:49-0400 Heart rate 69 /min [facility] 08-20-2023 16:49-0400 Respiratory rate 69 /min [facility] 08-20-2023 16:49-0400 SaO2% (BldA) [Mass fraction] 98 % [facility] 08-20-2023 16:49-0400 Systolic blood pressure 135 mm[Hg] [facility] 08-20-2023 15:57-0400 Body temperature 97.7 [degF] [facility] 08-20-2023 15:22-0400 Inhaled oxygen flow rate 8 L/min [facility] 08-20-2023 14:26-0400 Body height 161.29 cm [facility] 08-20-2023 14:26-0400 Body mass index (BMI) [Ratio] 25.4 kg/m2 [facility] 08-20-2023 14:26-0400 Body weight 66.22 kg [facility] 08-20-2023 10:56-0400 Body weight 67.1 kg [facility] 08-20-2023 07:30-0400 Body temperature 97.4 [degF] [facility] 08-20-2023 07:30-0400 Diastolic blood pressure 87 mm[Hg] [facility] 08-20-2023 07:30-0400 Heart rate 67 /min [facility] 08-20-2023 07:30-0400 Respiratory rate 18 /min [facility] 08-20-2023 07:30-0400 SaO2% (BldA) [Mass fraction] 99 % [facility] 08-20-2023 07:30-0400 Systolic blood pressure 143 mm[Hg] [facility] 08-19-2023 09:00-0400 Body weight 67.1 kg [facility] 08-16-2023 14:0400 Body height 161.29 cm [facility] 08-15-2023 19:270400 Body temperature 97.2 [degF] [facility] 08-15-2023 19:27-0400 Diastolic blood pressure 63 mm[Hg] [facility] 08-15-2023 19:27-0400 Heart rate 71 /min [facility] 08-15-2023 19:27-0400 Respiratory rate 20 /min [facility] 08-15-2023 19:27-0400 SaO2% (BldA) [Mass fraction] 99 % [facility] 08-15-2023 19:27-0400 Systolic blood pressure 133 mm[Hg] [facility] 08-15-2023 [id number] Body height 160.02 cm [facility] 08-15-2023 [id number] Body weight 66.67 kg [facility] 05-22-2023 10:50-0500 Body height 162.56 cm Karla Clark CNP Work Phone: [facility] 05-22-2023 10:50-0500 Body mass index (BMI) [Ratio] 24.8 kg/m2 Karla Clark CNP Work Phone: [facility] 05-22-2023 10:50-0500 Body surface area Derived from formula 1.7 m2 Karla Clark CNP Work Phone: [facility] 05-22-2023 10:50-0500 Body weight 65.59 kg Karla Clark CNP Work Phone: [facility] 05-22-2023 10:50-0500 Diastolic blood pressure 89 mm[Hg] Karla Clark CNP Work Phone: [facility] 05-22-2023 10:50-0500 Heart rate 75 /min Karla Clark CNP Work Phone: [facility] 05-22-2023 10:50-0500 SaO2% (BldA) [Mass fraction] 95 % Karlajulius Floresen MINUTE CLERK [employer] Work Phone: [facility] 05-22-2023 10:50-0500 Systolic blood pressure 138 mm[Hg] Karlajulius Clark MINUTE CLERK [employer] Work Phone: [facility] 03-28-2023 07:30-0400 Body temperature 97.9 [degF] SCRAP SEPARATOR Karlajulius Floresen Work Phone: [facility] 03-28-2023 07:30-0400 Diastolic blood pressure 71 mm[Hg] SCRAP SEPARATOR Karlajulius Floresen Work Phone: [facility] 03-28-2023 07:30-0400 Heart rate 95 /min SCRAP SEPARATOR Karlajulius Clark Work Phone: [facility] 03-28-2023 07:30-0400 Respiratory rate 18 /min SCRAP SEPARATOR Karla Clark Work Phone: [facility] 03-28-2023 07:30-0400 SaO2% (BldA) [Mass fraction] 95 % SCRAP SEPARATOR Karlajulius Floresen Work Phone: [facility] 03-28-2023 07:30-0400 Systolic blood pressure 121 mm[Hg] SCRAP SEPARATOR Karlajulius Floresen Work Phone: [facility] 03-27-2023 11:00-0400 Body height 160.02 cm SCRAP SEPARATOR Karlajulius Floresen Work Phone: [facility] 03-26-2023 00:59-0400 Body weight 63.5 kg SCRAP SEPARATOR Karlajulius Floresen Work Phone: [facility] 03-15-2023 07:30-0400 Body temperature 97.9 [degF] SCRAP SEPARATOR Karlajulius Clark Work Phone: [facility] 03-15-2023 07:30-0400 Diastolic blood pressure 72 mm[Hg] SCRAP SEPARATOR Karla Clark Work Phone: [facility] 03-15-2023 07:30-0400 Heart rate 68 /min SCRAP SEPARATOR Karla Clark Work Phone: [facility] 03-15-2023 07:30-0400 Respiratory rate 16 /min SCRAP SEPARATOR Karla Clark Work Phone: [facility] 03-15-2023 07:30-0400 SaO2% (BldA) [Mass fraction] 100 % SCRAP SEPARATOR Karla Clark Work Phone: [facility] 03-15-2023 07:30-0400 Systolic blood pressure 136 mm[Hg] SCRAP SEPARATOR Karla Clark Work Phone: [facility] 03-12-2023 14:52-0400 Body height 160.02 cm SCRAP SEPARATOR Karla Clark Work Phone: [facility] 03-12-2023 00:34-0400 Body weight 63.5 kg SCRAP SEPARATOR Karla Clark Work Phone: [facility] 02-28-2023 09:35-0400 Body height 162.56 cm Karla Clark CNP Work Phone: [facility] 02-28-2023 09:35-0400 Body mass index (BMI) [Ratio] 24 kg/m2 Karla Clark CNP Work Phone: [facility] 02-28-2023 09:35-0400 Body surface area Derived from formula 1.7 m2 Karla Clark MINUTE [employer] Work Phone: [facility] 02-28-2023 09:35-0400 Body weight 63.41 kg Karla Clark MINUTE CLERK [employer] Work Phone: [facility] 02-28-2023 09:35-0400 Diastolic blood pressure 76 mm[Hg] Karla Amber MINUTE CLERK [employer] Work Phone: [facility] 02-28-2023 09:35-0400 Heart rate 83 /min Karla Amber MINUTE CLERK [employer] Work Phone: [facility] 02-28-2023 09:35-0400 SaO2% (BldA) [Mass fraction] 94 % Karla Clark CNP Work Phone: [facility] 02-28-2023 09:35-0400 Systolic blood pressure 111 mm[Hg] Karla Clark MINUTE CL[employer] Work Phone: [facility] 12-12-2022 13:45-0400 Body height Eomry Adame Other [employer] Other 12-12-2022 13:45-0400 Body mass index (BMI) [Ratio] 25.6 kg/m2 Emory Adame Other [employer] Other 12-12-2022 13:45-0400 Body weight 63.5 kg Emory Adame Other [employer] Other 11-19-2022 09:15-0400 Body height 162.56 cm Karla Clark MINUTE CL[employer] Work Phone: [facility] 11-19-2022 09:15-0400 Body mass index (BMI) [Ratio] 23.6 kg/m2 Karla Clark MINUTE CL[employer] Work Phone: [facility] 11-19-2022 09:15-0400 Body surface area Derived from formula 1.7 m2 Karla Clark CNP Work Phone: [facility] 11-19-2022 09:15-0400 Body temperature 97.6 [degF] Karla Clark MINUTE CL[employer] Work Phone: [facility] 11-19-2022 09:15-0400 Body weight 62.32 kg Karla Clark MINUTE CL[employer] Work Phone: [facility] 11-19-2022 09:15-0400 Diastolic blood pressure 60 mm[Hg] Karla Clark MINUTE CL[employer] Work Phone: [facility] 11-19-2022 09:15-0400 Heart rate 94 /min Karla Clark MINUTE CL[employer] Work Phone: [facility] 11-19-2022 09:15-0400 SaO2% (BldA) [Mass fraction] 97 % Karla Clark CNP Work Phone: [facility] 11-19-2022 09:15-0400 Systolic blood pressure 133 mm[Hg] Karla Clark CNP Work Phone: [facility] 09-18-2022 13:57-0400 Body height 162.56 cm Karla Clark CNP Work Phone: [facility] Work Phone: 09-18-2022 13:57-0400 Body mass index (BMI) [Ratio] 24.9 kg/m2 Karla Clark CNP Work Phone: [facility] Work Phone: 09-18-2022 13:57-0400 Body surface area Derived from formula 1.7 m2 Karla Clark CNP Work Phone: [facility] Work Phone: 09-18-2022 13:57-0400 Body temperature 97.6 [degF] Karla Clark CNP Work Phone: [facility] Work Phone: 09-18-2022 13:57-0400 Body weight 65.68 kg Karla Clark CNP Work Phone: [facility] Work Phone: 09-18-2022 13:57-0400 Diastolic blood pressure 74 mm[Hg] Karla Clark CNP Work Phone: [facility] Work Phone: 09-18-2022 13:57-0400 Heart rate 80 /min Karla Clark CNP Work Phone: [facility] Work Phone: 09-18-2022 13:57-0400 SaO2% (BldA) [Mass fraction] 98 % Karla Clark CNP Work Phone: [facility] Work Phone: 09-18-2022 13:57-0400 Systolic blood pressure 142 mm[Hg] Karla Clark [employer] Work Phone: [facility] Work Phone: 09-14-2022 15:10-0400 Body temperature 98.6 [degF] PHYSICIAN NO [facility] 09-14-2022 15:10-0400 Diastolic blood pressure 75 mm[Hg] PHYSICIAN NO [facility] 09-14-2022 15:10-0400 Heart rate 81 /min PHYSICIAN NO [facility] 09-14-2022 15:10-0400 Respiratory rate 20 /min PHYSICIAN NO [facility] 09-14-2022 15:10-0400 SaO2% (BldA) [Mass fraction] 95 % PHYSICIAN NO [facility] 09-14-2022 15:10-0400 Systolic blood pressure 144 mm[Hg] PHYSICIAN NO [facility] 09-14-2022 06:43-0400 Body weight 72.6 kg PHYSICIAN NO [facility] 09-14-2022 00:00-0400 Inhaled oxygen flow rate 1 L/min PHYSICIAN NO [facility] 09-13-2022 08:33-0400 Body height 157.48 cm PHYSICIAN NO [facility] 09-13-2022 08:33-0400 Body mass index (BMI) [Ratio] 26.2 kg/m2 PHYSICIAN NO [facility] 09-10-2022 09:45-0400 Body height Emory Adame Other [employer] Other 09-10-2022 09:45-0400 Body mass index (BMI) [Ratio] 26.15 kg/m2 Emory Adame Other [employer] Other 09-10-2022 09:45-0400 Body weight 64.86 kg Emory Adame Other [employer] Other 08-27-2022 08:26-0400 Body height 162.56 cm Karla Clark CNP Work Phone: [facility] Work Phone: 08-27-2022 08:26-0400 Body mass index (BMI) [Ratio] 24.6 kg/m2 Karla Clark CNP Work Phone: [facility] Work Phone: 08-27-2022 08:26-0400 Body surface area Derived from formula 1.7 m2 Karla Clark CNP Work Phone: [facility] Work Phone: 08-27-2022 08:26-0400 Body temperature 97 [degF] Karla Clark CNP Work Phone: [facility] Work Phone: 08-27-2022 08:26-0400 Body weight 65.14 kg Karla Clark CNP Work Phone: [facility] Work Phone: 08-27-2022 08:26-0400 Diastolic blood pressure 73 mm[Hg] Karla Clark CNP Work Phone: [facility] Work Phone: 08-27-2022 08:26-0400 Heart rate 66 /min Karla Clakr CNP Work Phone: [facility] Work Phone: 08-27-2022 08:26-0400 SaO2% (BldA) [Mass fraction] 96 % Karla Clark CNP Work Phone: [facility] Work Phone: 08-27-2022 08:26-0400 Systolic blood pressure 115 mm[Hg] Karla Clark CNP Work Phone: [facility] Work Phone: 06-18-2022 11:23-0500 Body height 162.56 cm Karla Clark CNP Work Phone: [facility] Work Phone: 06-18-2022 11:23-0500 Body mass index (BMI) [Ratio] 24.9 kg/m2 Karla Clark CNP Work Phone: [facility] Work Phone: 06-18-2022 11:23-0500 Body surface area Derived from formula 1.7 m2 Karla Clark CNP Work Phone: [facility] Work Phone: 06-18-2022 11:23-0500 Body temperature 97.6 [degF] Karla Clark CNP Work Phone: [facility] Work Phone: 06-18-2022 11:23-0500 Body weight 65.86 kg Karla Clark CNP Work Phone: [facility] Work Phone: 06-18-2022 11:23-0500 Diastolic blood pressure 78 mm[Hg] Karla Clark CNP Work Phone: [facility] Work Phone: 06-18-2022 11:23-0500 Heart rate 62 /min Karla Clark CNP Work Phone: [facility] Work Phone: 06-18-2022 11:23-0500 SaO2% (BldA) [Mass fraction] 98 % Karla Clark CNP Work Phone: [facility] Work Phone: 06-18-2022 11:23-0500 Systolic blood pressure 125 mm[Hg] Karla Clark CNP Work Phone: [facility] Work Phone: 03-20-2022 13:56-0400 Body height 162.56 cm Karla Clark CNP Work Phone: [facility] Work Phone: 03-20-2022 13:56-0400 Body mass index (BMI) [Ratio] 24.4 kg/m2 Karla Clark CNP Work Phone: [facility] Work Phone: 03-20-2022 13:56-0400 Body surface area Derived from formula 1.7 m2 Karla Clark CNP Work Phone: [facility] Work Phone: 03-20-2022 13:56-0400 Body temperature 99.5 [degF] Karla Clark CNP Work Phone: [facility] Work Phone: 03-20-2022 13:56-0400 Body weight 64.41 kg Karla Clark CNP Work Phone: [facility] Work Phone: 03-20-2022 13:56-0400 Diastolic blood pressure 82 mm[Hg] Karla Clark CNP Work Phone: [facility] Work Phone: 03-20-2022 13:56-0400 Heart rate 69 /min Karla Clark CNP Work Phone: [facility] Work Phone: 03-20-2022 13:56-0400 Heart Rate Rhythm 1 1 Karla Clark CNP Work Phone: [facility] Work Phone: 03-20-2022 13:56-0400 SaO2% (BldA) [Mass fraction] 98 % Karla Clark CNP Work Phone: [facility] Work Phone: 03-20-2022 13:56-0400 Systolic blood pressure 126 mm[Hg] Karla Clark CNP Work Phone: [facility] Work Phone: 12-20-2021 14:07-0400 Body height 162.56 cm Karla Clark CNP Work Phone: [facility] Work Phone: 12-20-2021 14:07-0400 Body mass index (BMI) [Ratio] 24.5 kg/m2 Karla Clark CNP Work Phone: [facility] Work Phone: 12-20-2021 14:07-0400 Body surface area Derived from formula 1.7 m2 Karla Clark CNP Work Phone: [facility] Work Phone: 12-20-2021 14:07-0400 Body temperature 97.6 [degF] Karla Clark CNP Work Phone: [facility] Work Phone: 12-20-2021 14:07-0400 Body weight 64.86 kg Karla Clark CNP Work Phone: [facility] Work Phone: 12-20-2021 14:07-0400 Diastolic blood pressure 80 mm[Hg] Karla Clark CNP Work Phone: [facility] Work Phone: 12-20-2021 14:07-0400 Heart rate 92 /min Karla Clark CNP Work Phone: [facility] Work Phone: 12-20-2021 14:07-0400 SaO2% (BldA) [Mass fraction] 98 % Karla Clark CNP Work Phone: [facility] Work Phone: 12-20-2021 14:07-0400 Systolic blood pressure 130 mm[Hg] Karla Clark CNP Work Phone: [facility] Work Phone: 11-03-2021 10:00-0400 Body height 162.56 cm Karla Clark CNP Work Phone: [facility] Work Phone: 11-03-2021 10:00-0400 Body mass index (BMI) [Ratio] 24.3 kg/m2 Karla Clark CNP Work Phone: [facility] Work Phone: 11-03-2021 10:00-0400 Body surface area Derived from formula 1.69 m2 Karla Clark CNP Work Phone: [facility] Work Phone: 11-03-2021 10:00-0400 Body surface area Derived from formula 1.7 m2 Karla Clark CNP Work Phone: [facility] Work Phone: 11-03-2021 10:00-0400 Body temperature 97.6 [degF] Karla Clark CNP Work Phone: [facility] Work Phone: 11-03-2021 10:00-0400 Body weight 64.14 kg Karla Clark CNP Work Phone: [facility] Work Phone: 11-03-2021 10:00-0400 Diastolic blood pressure 80 mm[Hg] Karla Clark CNP Work Phone: [facility] Work Phone: 11-03-2021 10:00-0400 Heart rate 70 /min Karla Clark CNP Work Phone: [facility] Work Phone: 11-03-2021 10:00-0400 SaO2% (BldA) [Mass fraction] 98 % Karla Clark CNP Work Phone: [facility] Work Phone: 11-03-2021 10:00-0400 Systolic blood pressure 126 mm[Hg] Karla Clark CNP Work Phone: [facility] Work Phone: 07-28-2021 13:20-0500 Body height 162.56 cm Karla Clark CNP Work Phone: [facility] Work Phone: 07-28-2021 13:20-0500 Body mass index (BMI) [Ratio] 24.4 kg/m2 Karla Clark CNP Work Phone: [facility] Work Phone: 07-28-2021 13:20-0500 Body surface area Derived from formula 1.69 m2 Karla Clark CNP Work Phone: [facility] Work Phone: 07-28-2021 13:20-0500 Body surface area Derived from formula 1.7 m2 Karla Clark CNP Work Phone: [facility] Work Phone: 07-28-2021 13:20-0500 Body temperature 98.6 [degF] Karla Clark CNP Work Phone: [facility] Work Phone: 07-28-2021 13:20-0500 Body weight 64.59 kg Karla Clark CNP Work Phone: [facility] Work Phone: 07-28-2021 13:20-0500 Diastolic blood pressure 82 mm[Hg] Karla Clark CNP Work Phone: [facility] Work Phone: 07-28-2021 13:20-0500 Heart rate 80 /min Karla Clark CNP Work Phone: [facility] Work Phone: 07-28-2021 13:20-0500 Respiratory rate 18 /min Karla Clark CNP Work Phone: [facility] Work Phone: 07-28-2021 13:20-0500 SaO2% (BldA) [Mass fraction] 98 % Karla Clark CNP Work Phone: [facility] Work Phone: 07-28-2021 13:20-0500 Systolic blood pressure 134 mm[Hg] Karla Clark CNP Work Phone: [facility] Work Phone: 05-08-2021 10:04-0500 Body height 162.56 cm Karla Clark CNP Work Phone: [facility] Work Phone: 05-08-2021 10:04-0500 Body mass index (BMI) [Ratio] 24.2 kg/m2 Karla Clark CNP Work Phone: [facility] Work Phone: 05-08-2021 10:04-0500 Body surface area Derived from formula 1.69 m2 Karla Clark CNP Work Phone: [facility] Work Phone: 05-08-2021 10:04-0500 Body surface area Derived from formula 1.7 m2 Karla Clark CNP Work Phone: [facility] Work Phone: 05-08-2021 10:04-0500 Body temperature 99.1 [degF] Karla Clark CNP Work Phone: [facility] Work Phone: 05-08-2021 10:04-0500 Body weight 64.05 kg Karla Clark [employer] Work Phone: [facility] Work Phone: 05-08-2021 10:04-0500 Diastolic blood pressure 78 mm[Hg] Karla Clark CNP Work Phone: [facility] Work Phone: 05-08-2021 10:04-0500 Heart rate 69 /min Karla Clark CNP Work Phone: [facility] Work Phone: 05-08-2021 10:04-0500 SaO2% (BldA) [Mass fraction] 99 % Karla Clark CNP Work Phone: [facility] Work Phone: 05-08-2021 10:04-0500 Systolic blood pressure 132 mm[Hg] Karla Clark CNP Work Phone: [facility] Work Phone: 06-17-2020 09:49-0500 BMI (Body Mass Index) 24.9 kg/m2 Karla Amber [facility] Work Phone: 06-17-2020 09:49-0500 Body Temperature 97.3 [degF] Karlajulius Floresen [facility] Work Phone: 06-17-2020 09:49-0500 Body weight 65.86 kg Karla Clark [facility] Work Phone: 06-17-2020 09:49-0500 BP Diastolic 70 mm[Hg] [facility] Work Phone: 06-17-2020 09:49-0500 BP Systolic 100 mm[Hg] [facility] Work Phone: 06-17-2020 09:49-0500 BSA (Body Surface Area) 1.71 m2 [facility] Work Phone: 06-17-2020 09:49-0500 Height 162.56 cm [facility] Work Phone: 06-17-2020 09:49-0500 Pulse (Heart Rate) 79 /min [facility] Work Phone: 06-17-2020 09:49-0500 Pulse Oximetry 97 % [facility] Work Phone: 06-17-2020 09:49-0500 Respiratory Rate 18 /min [facility] Work Phone: 06-17-2020 09:49-0500 SaO2% (BldA) [Mass fraction] 97 % [facility] Work Phone: [facility] Work Phone: 06-08-2020 10:39-0500 BP Diastolic 72 mm[Hg] [place], [place] 06-08-2020 10:39-0500 BP Systolic 137 mm[Hg] [facility] , [place] 06-08-2020 10:39-0500 Pulse (Heart Rate) 84 /min [place], [place] 06-08-2020 10:39-0500 Pulse Oximetry 98 % [place], [place] 06-08-2020 10:39-0500 Respiratory Rate 12 /min [facility], [place] 06-06-2020 13:08-0500 BMI (Body Mass Index) 25 kg/m2 [facility] Work Phone: 06-06-2020 13:08-0500 Body Temperature 96.2 [degF] [facility] Work Phone: 06-06-2020 13:08-0500 Body weight 65.95 kg [facility] Work Phone: 06-06-2020 13:08-0500 BP Diastolic 86 mm[Hg] [facility] Work Phone: 06-06-2020 13:08-0500 BP Systolic 128 mm[Hg] [facility] Work Phone: 06-06-2020 13:08-0500 BSA (Body Surface Area) 1.71 m2 [facility] Work Phone: 06-06-2020 13:08-0500 Height 162.56 cm [facility] Work Phone: 06-06-2020 13:08-0500 Respiratory Rate 18 /min [facility] Work Phone: 05-06-2020 14:04-0500 BMI (Body Mass Index) 25.2 kg/m2 [facility] Work Phone: 05-06-2020 14:04-0500 Body weight 66.68 kg [facility] Work Phone: 05-06-2020 14:04-0500 BP Diastolic 70 mm[Hg] [facility] Work Phone: 05-06-2020 14:04-0500 BP Systolic 116 mm[Hg] [facility] Work Phone: 05-06-2020 14:04-0500 BSA (Body Surface Area) 1.72 m2 [facility] Work Phone: 05-06-2020 14:04-0500 Height 162.56 cm [facility] Work Phone: 05-06-2020 14:04-0500 Pulse (Heart Rate) 72 /min [facility] Work Phone: 05-06-2020 14:04-0500 Pulse Oximetry 96 % [facility] Work Phone: 03-31-2020 14:22-0400 BMI (Body Mass Index) 25.3 kg/m2 [facility] Work Phone: 03-31-2020 14:22-0400 Body Temperature 97.7 [degF] [facility] Work Phone: 03-31-2020 14:22-0400 Body weight 66.95 kg [facility] Work Phone: 03-31-2020 14:22-0400 BP Diastolic 90 mm[Hg] [facility] Work Phone: 03-31-2020 14:22-0400 BP Systolic 142 mm[Hg] [facility] Work Phone: 03-31-2020 14:22-0400 BSA (Body Surface Area) 1.72 m2 [facility] Work Phone: 03-31-2020 14:22-0400 Height 162.56 cm [facility] Work Phone: 03-31-2020 14:22-0400 Pulse (Heart Rate) 97 /min [facility] Work Phone: 03-31-2020 14:22-0400 Pulse Oximetry 97 % [facility] Work Phone: 03-31-2020 14:22-0400 Respiratory Rate 18 /min [facility] Work Phone: 03-14-2020 14:01-0400 BMI (Body Mass Index) 25.2 kg/m2 [facility] Work Phone: 03-14-2020 14:01-0400 Body Temperature 96.3 [degF] [facility] Work Phone: 03-14-2020 14:01-0400 Body weight 66.59 kg [facility] Work Phone: 03-14-2020 14:01-0400 BP Diastolic 86 mm[Hg] [facility] Work Phone: 03-14-2020 14:01-0400 BP Systolic 130 mm[Hg] [facility] Work Phone: 03-14-2020 14:01-0400 BSA (Body Surface Area) 1.72 m2 [facility] Work Phone: 03-14-2020 14:01-0400 Height 162.56 cm [facility] Work Phone: 03-14-2020 14:01-0400 Pulse (Heart Rate) 83 /min [facility] Work Phone: 03-14-2020 14:01-0400 Respiratory Rate 18 /min [facility] Work Phone: 02-26-2020 11:04-0400 BMI (Body Mass Index) 25.8 kg/m2 [facility] Work Phone: 02-26-2020 11:04-0400 Body Temperature 98.1 [degF] [facility] Work Phone: 02-26-2020 11:04-0400 Body weight 65.95 kg [facility] Work Phone: 02-26-2020 11:04-0400 BP Diastolic 90 mm[Hg] [facility] Work Phone: 02-26-2020 11:04-0400 BP Systolic 144 mm[Hg] [facility] Work Phone: 02-26-2020 11:04-0400 BSA (Body Surface Area) 1.69 m2 [facility] Work Phone: 02-26-2020 11:04-0400 Height 160.02 cm [facility] Work Phone: 02-26-2020 11:04-0400 Pulse (Heart Rate) 62 /min [facility] Work Phone: 02-26-2020 11:04-0400 Pulse Oximetry 95 % [facility] Work Phone: 02-26-2020 11:04-0400 Respiratory Rate 18 /min [facility] Work Phone: 11-19-2019 09:03-0400 BMI (Body Mass Index) 27.5 kg/m2 [facility] Work Phone: Comment on above: self 11-19-2019 09:03-0400 Body weight 70.31 kg [facility] Work Phone: Comment on above: self 11-19-2019 09:03-0400 BSA (Body Surface Area) 1.74 m2 [facility] Work Phone: Comment on above: self 11-19-2019 09:03-0400 Height 160.02 cm [facility] Work Phone: Comment on above: self 07-23-2019 14:03-0500 BMI (Body Mass Index) 27 kg/m2 [facility] Work Phone: 07-23-2019 14:03-0500 Body Temperature 99.9 [degF] [facility] Work Phone: 07-23-2019 14:03-0500 Body weight 69.04 kg [facility] Work Phone: 07-23-2019 14:03-0500 BP Diastolic 82 mm[Hg] [facility] Work Phone: 07-23-2019 14:03-0500 BP Systolic 110 mm[Hg] [facility] Work Phone: 07-23-2019 14:03-0500 BSA (Body Surface Area) 1.72 m2 [facility] Work Phone: 07-23-2019 14:03-0500 Height 160.02 cm [facility] Work Phone: 07-23-2019 14:03-0500 Pulse (Heart Rate) 80 /min [facility] Work Phone: 07-23-2019 14:03-0500 Pulse Oximetry 96 % [facility] Work Phone: 07-23-2019 14:03-0500 Respiratory Rate 18 /min [facility] Work Phone: 06-05-2019 13:43-0500 BMI (Body Mass Index) 27.2 kg/m2 [facility] Work Phone: 06-05-2019 13:43-0500 Body weight 69.76 kg [facility] Work Phone: 06-05-2019 13:43-0500 BP Diastolic 80 mm[Hg] [facility] Work Phone: 06-05-2019 13:43-0500 BP Systolic 118 mm[Hg] [facility] Work Phone: 06-05-2019 13:43-0500 BSA (Body Surface Area) 1.73 m2 [facility] Work Phone: 06-05-2019 13:43-0500 Height 160.02 cm [facility] Work Phone: 06-05-2019 13:43-0500 Pulse (Heart Rate) 73 /min [facility] Work Phone: 06-05-2019 13:43-0500 Pulse Oximetry 96 % [facility] Work Phone: 04-23-2019 13:59-0500 BMI (Body Mass Index) 27.1 kg/m2 [facility] Work Phone: 04-23-2019 13:59-0500 Body weight 69.4 kg [facility] Work Phone: 04-23-2019 13:59-0500 BP Diastolic 76 mm[Hg] [facility] Work Phone: 04-23-2019 13:59-0500 BP Systolic 124 mm[Hg] [facility] Work Phone: 04-23-2019 13:59-0500 BSA (Body Surface Area) 1.73 m2 [facility] Work Phone: 04-23-2019 13:59-0500 Height 160.02 cm [facility] Work Phone: 04-23-2019 13:59-0500 Pulse (Heart Rate) 58 /min [facility] Work Phone: 04-23-2019 13:59-0500 Pulse Oximetry 97 % [facility] Work Phone: 04-15-2019 10:33-0500 BMI (Body Mass Index) 28 kg/m2 [facility] Work Phone: 04-15-2019 10:33-0500 Body Temperature 99.3 [degF] [facility] Work Phone: 04-15-2019 10:33-0500 Body weight 71.76 kg [facility] Work Phone: 04-15-2019 10:33-0500 BP Diastolic 84 mm[Hg] [facility] Work Phone: 04-15-2019 10:33-0500 BP Systolic 120 mm[Hg] [facility] Work Phone: 04-15-2019 10:33-0500 BSA (Body Surface Area) 1.75 m2 [facility] Work Phone: 04-15-2019 10:33-0500 Height 160.02 cm [facility] Work Phone: 04-15-2019 10:33-0500 Pulse (Heart Rate) 83 /min [facility] Work Phone: 04-15-2019 10:33-0500 Pulse Oximetry 97 % [facility] Work Phone: 04-10-2019 12:10-0500 BP Diastolic 85 mm[Hg] [facility] , [place] 04-10-2019 12:10-0500 BP Systolic 128 mm[Hg] [facility] [place] 04-10-2019 12:10-0500 Pulse (Heart Rate) 83 /min [facility], [place] 04-10-2019 12:10-0500 Pulse Oximetry 99 % [facility] [place] 04-10-2019 12:10-0500 Respiratory Rate 12 /min [facility], [place] 03-05-2019 09:25-0400 BMI (Body Mass Index) 27.7 kg/m2 [facility] Work Phone: 03-05-2019 09:25-0400 Body Temperature 96.5 [degF] [facility] Work Phone: 03-05-2019 09:25-0400 Body weight 70.94 kg [facility] Work Phone: 03-05-2019 09:25-0400 BP Diastolic 86 mm[Hg] [facility] Work Phone: 03-05-2019 09:25-0400 BP Systolic 110 mm[Hg] [facility] Work Phone: 03-05-2019 09:25-0400 BSA (Body Surface Area) 1.74 m2 [facility] Work Phone: 03-05-2019 09:25-0400 Height 160.02 cm [facility] Work Phone: 03-05-2019 09:25-0400 Pulse (Heart Rate) 86 /min [facility] Work Phone: 03-05-2019 09:25-0400 Pulse Oximetry 97 % [facility] Work Phone: 03-05-2019 09:25-0400 Respiratory Rate 18 /min [facility] Work Phone: 12-22-2018 10:11-0400 BMI (Body Mass Index) 28.4 kg/m2 [facility] Work Phone: 12-22-2018 10:11-0400 Body Temperature 98.2 [degF] [facility] Work Phone: 12-22-2018 10:11-0400 Body weight 72.85 kg [facility] Work Phone: 12-22-2018 10:11-0400 BP Diastolic 80 mm[Hg] [facility] Work Phone: 12-22-2018 10:11-0400 BP Systolic 110 mm[Hg] [facility] Work Phone: 12-22-2018 10:11-0400 BSA (Body Surface Area) 1.76 m2 [facility] Work Phone: 12-22-2018 10:11-0400 Height 160.02 cm [facility] Work Phone: 12-22-2018 10:11-0400 Pulse (Heart Rate) 67 /min [facility] Work Phone: 12-22-2018 10:11-0400 Pulse Oximetry 94 % [facility] Work Phone: 12-22-2018 10:11-0400 Respiratory Rate 14 /min [facility] Work Phone: 11-06-2018 13:55-0400 BMI (Body Mass Index) 28.7 kg/m2 [facility] Work Phone: 11-06-2018 13:55-0400 Body Temperature 97.8 [degF] [facility] Work Phone: 11-06-2018 13:55-0400 Body weight 73.48 kg [facility] Work Phone: 11-06-2018 13:55-0400 BP Diastolic 76 mm[Hg] [facility] Work Phone: 11-06-2018 13:55-0400 BP Systolic 110 mm[Hg] [facility] Work Phone: 11-06-2018 13:55-0400 BSA (Body Surface Area) 1.77 m2 [facility] Work Phone: 11-06-2018 13:55-0400 Height 160.02 cm Karla Clark [facility] Work Phone: 11-06-2018 13:55-0400 Pulse (Heart Rate) 80 /min Karla Clark [facility] Work Phone: 11-06-2018 13:55-0400 Pulse Oximetry 98 % Karla Clark [facility] Work Phone: 11-06-2018 13:55-0400 Respiratory Rate 22 /min Karla Clark [facility] Work Phone: 09-11-2018 10:25-0400 Body height 160.02 cm Karla Clark CNP Work Phone: [facility] Work Phone: 09-11-2018 10:25-0400 Body mass index (BMI) [Ratio] 29.6 kg/m2 Karla Clark CNP Work Phone: [facility] Work Phone: 09-11-2018 10:25-0400 Body surface area Derived from formula 1.79 m2 Karla Clark CNP Work Phone: [facility] Work Phone: 09-11-2018 10:25-0400 Body temperature 97.4 [degF] Karla Clark CNP Work Phone: [facility] Work Phone: 09-11-2018 10:25-0400 Body weight 75.75 kg Karla Clark CNP Work Phone: [facility] Work Phone: 09-11-2018 10:25-0400 Diastolic blood pressure 76 mm[Hg] Karla Clark CNP Work Phone: [facility] Work Phone: 09-11-2018 10:25-0400 Heart rate 78 /min Karla Clark CNP Work Phone: [facility] Work Phone: 09-11-2018 10:25-0400 Pulse Oximetry 99 % Karla Clark [facility] Work Phone: 09-11-2018 10:25-0400 Respiratory rate 22 /min Karla Clark CNP Work Phone: [facility] Work Phone: 09-11-2018 10:25-0400 SaO2% (BldA) [Mass fraction] 99 % Karla Clark CNP Work Phone: [facility] Work Phone: 09-11-2018 10:25-0400 Systolic blood pressure 120 mm[Hg] Karla Clark CNP Work Phone: [facility] Work Phone: 09-04-2018 13:24-0400 Body height 160.02 cm Karla Clark CNP Work Phone: [facility] Work Phone: 09-04-2018 13:24-0400 Body mass index (BMI) [Ratio] 29.8 kg/m2 Karla Clark CNP Work Phone: [facility] Work Phone: 09-04-2018 13:24-0400 Body surface area Derived from formula 1.8 m2 Karla Clark CNP Work Phone: [facility] Work Phone: 09-04-2018 13:24-0400 Body temperature 98.3 [degF] Karla Clark CNP Work Phone: [facility] Work Phone: 09-04-2018 13:24-0400 Body weight 76.3 kg Karla Clark CNP Work Phone: [facility] Work Phone: 09-04-2018 13:24-0400 Diastolic blood pressure 90 mm[Hg] Karla Clark CNP Work Phone: [facility] Work Phone: 09-04-2018 13:24-0400 Heart rate 86 /min Karla Clark CNP Work Phone: [facility] Work Phone: 09-04-2018 13:24-0400 Inhaled oxygen concentration 21 % Karla Clark CNP Work Phone: [facility] Work Phone: 09-04-2018 13:24-0400 Inhaled oxygen flow rate 0 L/min Karla Clark CNP Work Phone: [facility] Work Phone: 09-04-2018 13:24-0400 Respiratory rate 20 /min Karla Clark CNP Work Phone: [facility] Work Phone: 09-04-2018 13:24-0400 Systolic blood pressure 146 mm[Hg] Karla Clark CNP Work Phone: [facility] Work Phone: 07-31-2018 13:37-0500 Body height 160.02 cm Karla Clark CNP Work Phone: [facility] Work Phone: 07-31-2018 13:37-0500 Body mass index (BMI) [Ratio] 29.9 kg/m2 Karla Clark CNP Work Phone: [facility] Work Phone: 07-31-2018 13:37-0500 Body surface area Derived from formula 1.8 m2 Karla Clark CNP Work Phone: [facility] Work Phone: 07-31-2018 13:37-0500 Body temperature 97.9 [degF] Karla Clark CNP Work Phone: [facility] Work Phone: 07-31-2018 13:37-0500 Body weight 76.66 kg Karla Clark CNP Work Phone: [facility] Work Phone: 07-31-2018 13:37-0500 Diastolic blood pressure 74 mm[Hg] Karla Clark CNP Work Phone: [facility] Work Phone: 07-31-2018 13:37-0500 Heart rate 51 /min Karla Clark CNP Work Phone: [facility] Work Phone: 07-31-2018 13:37-0500 Pulse Oximetry 100 % Karla Amber [facility] Work Phone: 07-31-2018 13:37-0500 Respiratory rate 22 /min Karla Clark CNP Work Phone: [facility] Work Phone: 07-31-2018 13:37-0500 SaO2% (BldA) [Mass fraction] 100 % Karla Clark CNP Work Phone: [facility] Work Phone: 07-31-2018 13:37-0500 Systolic blood pressure 122 mm[Hg] Karla Clark CNP Work Phone: [facility] Work Phone: 05-08-2018 17:00-0500 BMI (Body Mass Index) 29.94 kg/m2 [facility] 05-08-2018 17:00-0500 Body Temperature 97.9 [degF] [facility] 05-08-2018 17:00-0500 BP Diastolic 70 mm[Hg] [facility] 05-08-2018 17:00-0500 BP Systolic 124 mm[Hg] [facility] 05-08-2018 17:00-0500 BSA (Body Surface Area) 1.85 m2 [facility] 05-08-2018 17:00-0500 Height 160.02 cm [facility] 05-08-2018 17:00-0500 Pulse (Heart Rate) 70 /min [facility] 05-08-2018 17:00-0500 Pulse Oximetry 99 % [facility] 05-08-2018 17:00-0500 Respiratory Rate 20 /min [facility] 05-08-2018 17:00-0500 Weight 76.66 kg [facility] 05-08-2018 15:00-0500 Body mass index (BMI) [Ratio] 29.9 kg/m2 Karlajulius Clark [facility] Work Phone: [facility] Work Phone: 05-08-2018 15:00-0500 Body surface area Derived from formula 1.8 m2 Karla Amber [facility] Work Phone: [facility] Work Phone: 05-08-2018 15:00-0500 Body weight 76.66 kg Karlajulius Clark [facility] Work Phone: [facility] Work Phone: 03-20-2018 13:39-0400 BMI (Body Mass Index) 30.11 kg/m2 [facility] 03-20-2018 13:39-0400 Body Temperature 97.9 [degF] [facility] 03-20-2018 13:39-0400 BP Diastolic 84 mm[Hg] [facility] 03-20-2018 13:39-0400 BP Systolic 122 mm[Hg] [facility] 03-20-2018 13:39-0400 BSA (Body Surface Area) 1.85 m2 Karla Clark [facility] 03-20-2018 13:39-0400 Height 160.02 cm Karla Amber [facility] 03-20-2018 13:39-0400 Pulse (Heart Rate) 59 /min Karla Clark [facility] 03-20-2018 13:39-0400 Pulse Oximetry 98 % Karlajulius Clark [facility] 03-20-2018 13:39-0400 Respiratory Rate 20 /min Karla Amber [facility] 03-20-2018 13:39-0400 Weight 77.11 kg Karla Amber [facility] 03-20-2018 10:39-0400 Body height 160.02 cm Karla Clark CNP Work Phone: [facility] Work Phone: 03-20-2018 10:39-0400 Body mass index (BMI) [Ratio] 30.1 kg/m2 Karla Clark CNP Work Phone: [facility] Work Phone: 03-20-2018 10:39-0400 Body surface area Derived from formula 1.8 m2 Karla Clark CNP Work Phone: [facility] Work Phone: 03-20-2018 10:39-0400 Body temperature 97.9 [degF] Karla Clark CNP Work Phone: [facility] Work Phone: 03-20-2018 10:39-0400 Body weight 77.11 kg Karla Clark CNP Work Phone: [facility] Work Phone: 03-20-2018 10:39-0400 Diastolic blood pressure 84 mm[Hg] Karla Clark CNP Work Phone: [facility] Work Phone: 03-20-2018 10:39-0400 Heart rate 59 /min Karla Clark [employer] Work Phone: [facility] Work Phone: 03-20-2018 10:39-0400 Respiratory rate 20 /min Karla Clark CNP Work Phone: [facility] Work Phone: 03-20-2018 10:39-0400 Systolic blood pressure 122 mm[Hg] Karla Clark CNP Work Phone: [facility] Work Phone: 02-11-2018 17:45-0400 BMI (Body Mass Index) 30.11 kg/m2 [facility] 02-11-2018 17:45-0400 Body Temperature 98.6 [degF] [facility] 02-11-2018 17:45-0400 BP Diastolic 80 mm[Hg] [facility] 02-11-2018 17:45-0400 BP Systolic 124 mm[Hg] [facility] 02-11-2018 17:45-0400 BSA (Body Surface Area) 1.85 m2 [facility] 02-11-2018 17:45-0400 Height 160.02 cm [facility] 02-11-2018 17:45-0400 Pulse (Heart Rate) 72 /min [facility] 02-11-2018 17:45-0400 Pulse Oximetry 97 % [facility] 02-11-2018 17:45-0400 Respiratory Rate 20 /min [facility] 02-11-2018 17:45-0400 Weight 77.11 kg [facility] 02-11-2018 16:45-0400 BMI (Body Mass Index) 30.11 kg/m2 [facility] 02-11-2018 16:45-0400 Body Temperature 98.6 [degF] [facility] 02-11-2018 16:45-0400 BP Diastolic 80 mm[Hg] [facility] 02-11-2018 16:45-0400 BP Systolic 124 mm[Hg] [facility] 02-11-2018 16:45-0400 BSA (Body Surface Area) 1.85 m2 [facility] 02-11-2018 16:45-0400 Height 160.02 cm [facility] 02-11-2018 16:45-0400 Pulse (Heart Rate) 72 /min [facility] 02-11-2018 16:45-0400 Pulse Oximetry 97 % [facility] 02-11-2018 16:45-0400 Respiratory Rate 20 /min [facility] 02-11-2018 16:45-0400 Weight 77.11 kg [facility] 02-11-2018 14:45-0400 Body height 160.02 cm [facility] Work Phone: [facility] Work Phone: 02-11-2018 14:45-0400 Body mass index (BMI) [Ratio] 30.1 kg/m2 Karla Clark CNP Work Phone: [facility] Work Phone: 02-11-2018 14:45-0400 Body surface area Derived from formula 1.8 m2 Karla Clark CNP Work Phone: [facility] Work Phone: 02-11-2018 14:45-0400 Body temperature 98.6 [degF] Karla Clark CNP Work Phone: [facility] Work Phone: 02-11-2018 14:45-0400 Body weight 77.11 kg Karla Clark CNP Work Phone: [facility] Work Phone: 02-11-2018 14:45-0400 Diastolic blood pressure 80 mm[Hg] Karla Clark CNP Work Phone: [facility] Work Phone: 02-11-2018 14:45-0400 Heart rate 72 /min Karla Clark CNP Work Phone: [facility] Work Phone: 02-11-2018 14:45-0400 Respiratory rate 20 /min Karla Clark CNP Work Phone: [facility] Work Phone: 02-11-2018 14:45-0400 Systolic blood pressure 124 mm[Hg] Karla Clark CNP Work Phone: [facility] Work Phone: 12-19-2017 17:08-0400 BMI (Body Mass Index) 30.29 kg/m2 Karla Clark [facility] 12-19-2017 17:08-0400 Body Temperature 98.7 [degF] Karla Clark [facility] 12-19-2017 17:08-0400 BP Diastolic 80 mm[Hg] [facility] 12-19-2017 17:08-0400 BP Systolic 122 mm[Hg] [facility] 12-19-2017 17:08-0400 BSA (Body Surface Area) 1.86 m2 [facility] 12-19-2017 17:08-0400 Height 160.02 cm [facility] 12-19-2017 17:08-0400 Pulse (Heart Rate) 97 /min [facility] 12-19-2017 17:08-0400 Pulse Oximetry 96 % [facility] 12-19-2017 17:08-0400 Respiratory Rate 18 /min [facility] 12-19-2017 17:08-0400 Weight 77.57 kg [facility] 12-19-2017 16:08-0400 BMI (Body Mass Index) 30.29 kg/m2 [facility] 12-19-2017 16:08-0400 Body Temperature 98.7 [degF] [facility] 12-19-2017 16:08-0400 BP Diastolic 80 mm[Hg] [facility] 12-19-2017 16:08-0400 BP Systolic 122 mm[Hg] [facility] 12-19-2017 16:08-0400 BSA (Body Surface Area) 1.86 m2 [facility] 12-19-2017 16:08-0400 Height 160.02 cm [facility] 12-19-2017 16:08-0400 Pulse (Heart Rate) 97 /min Karla Clark [facility] 12-19-2017 16:08-0400 Pulse Oximetry 96 % Karla Clark [facility] 12-19-2017 16:08-0400 Respiratory Rate 18 /min Karla Clark [facility] 12-19-2017 16:08-0400 Weight 77.57 kg Karla Clark [facility] 12-19-2017 14:08-0400 Body height 160.02 cm Karla Clark CNP Work Phone: [facility] Work Phone: 12-19-2017 14:08-0400 Body mass index (BMI) [Ratio] 30.3 kg/m2 Karla Clark CNP Work Phone: [facility] Work Phone: 12-19-2017 14:08-0400 Body surface area Derived from formula 1.81 m2 Karla Clark CNP Work Phone: [facility] Work Phone: 12-19-2017 14:08-0400 Body temperature 98.7 [degF] Karla Clark CNP Work Phone: [facility] Work Phone: 12-19-2017 14:08-0400 Body weight 77.57 kg Karla Clark CNP Work Phone: [facility] Work Phone: 12-19-2017 14:08-0400 Diastolic blood pressure 80 mm[Hg] Karla Clark CNP Work Phone: [facility] Work Phone: 12-19-2017 14:08-0400 Heart rate 97 /min Karla Clark CNP Work Phone: [facility] Work Phone: 12-19-2017 14:08-0400 Respiratory rate 18 /min Karla Clark CNP Work Phone: [facility] Work Phone: 12-19-2017 14:08-0400 Systolic blood pressure 122 mm[Hg] Karla Clark CNP Work Phone: [facility] Work Phone: 10-08-2017 14:21-0400 BMI (Body Mass Index) 29.47 kg/m2 [facility] 10-08-2017 14:21-0400 Body Temperature 97.5 [degF] [facility] 10-08-2017 14:21-0400 BP Diastolic 71 mm[Hg] [facility] 10-08-2017 14:21-0400 BP Systolic 109 mm[Hg] [facility] 10-08-2017 14:21-0400 BSA (Body Surface Area) 1.83 m2 [facility] 10-08-2017 14:21-0400 Height 160.02 cm [facility] 10-08-2017 14:21-0400 Pulse (Heart Rate) 53 /min [facility] 10-08-2017 14:21-0400 Pulse Oximetry 98 % [facility] 10-08-2017 14:21-0400 Respiratory Rate 18 /min [facility] 10-08-2017 14:21-0400 Weight 75.47 kg [facility] 10-08-2017 13:21-0400 BMI (Body Mass Index) 29.47 kg/m2 [facility] 10-08-2017 13:21-0400 Body Temperature 97.5 [degF] [facility] 10-08-2017 13:21-0400 BP Diastolic 71 mm[Hg] [facility] 10-08-2017 13:21-0400 BP Systolic 109 mm[Hg] [facility] 10-08-2017 13:21-0400 BSA (Body Surface Area) 1.83 m2 [facility] 10-08-2017 13:21-0400 Height 160.02 cm [facility] 10-08-2017 13:21-0400 Pulse (Heart Rate) 53 /min [facility] 10-08-2017 13:21-0400 Pulse Oximetry 98 % [facility] 10-08-2017 13:21-0400 Respiratory Rate 18 /min [facility] 10-08-2017 13:21-0400 Weight 75.47 kg [facility] 10-08-2017 11:21-0400 Body height 160.02 cm Karla Amber [facility] Work Phone: [facility] Work Phone: 10-08-2017 11:21-0400 Body mass index (BMI) [Ratio] 29.4 kg/m2 Karla Amber [facility] Work Phone: [facility] Work Phone: 10-08-2017 11:21-0400 Body surface area Derived from formula 1.79 m2 Karla Clark CNP Work Phone: [facility] Work Phone: 10-08-2017 11:21-0400 Body temperature 97.5 [degF] Karla Clark CNP Work Phone: [facility] Work Phone: 10-08-2017 11:21-0400 Body weight 75.3 kg Karla Clark CNP Work Phone: [facility] Work Phone: 10-08-2017 11:21-0400 Diastolic blood pressure 71 mm[Hg] Karla Clark CNP Work Phone: [facility] Work Phone: 10-08-2017 11:21-0400 Heart rate 53 /min Karla Clark CNP Work Phone: [facility] Work Phone: 10-08-2017 11:21-0400 Respiratory rate 18 /min Karla Clark CNP Work Phone: [facility] Work Phone: 10-08-2017 11:21-0400 Systolic blood pressure 109 mm[Hg] Karla Clark CNP Work Phone: [facility] Work Phone: 09-17-2017 13:46-0400 BMI (Body Mass Index) 29.43 kg/m2 Karla Amber [facility] 09-17-2017 13:46-0400 Body Temperature 98.9 [degF] [facility] 09-17-2017 13:46-0400 BP Diastolic 61 mm[Hg] Karla Amber [facility] 09-17-2017 13:46-0400 BP Systolic 91 mm[Hg] [facility] 09-17-2017 13:46-0400 BSA (Body Surface Area) 1.83 m2 [facility] 09-17-2017 13:46-0400 Height 160.02 cm [facility] 09-17-2017 13:46-0400 Pulse (Heart Rate) 54 /min [facility] 09-17-2017 13:46-0400 Pulse Oximetry 96 % [facility] 09-17-2017 13:46-0400 Respiratory Rate 18 /min [facility] 09-17-2017 13:46-0400 Weight 75.35 kg [facility] 09-17-2017 12:46-0400 BMI (Body Mass Index) 29.43 kg/m2 [facility] 09-17-2017 12:46-0400 Body Temperature 98.9 [degF] [facility] 09-17-2017 12:46-0400 BP Diastolic 61 mm[Hg] [facility] 09-17-2017 12:46-0400 BP Systolic 91 mm[Hg] [facility] 09-17-2017 12:46-0400 BSA (Body Surface Area) 1.83 m2 [facility] 09-17-2017 12:46-0400 Height 160.02 cm [facility] 09-17-2017 12:46-0400 Pulse (Heart Rate) 54 /min [facility] 09-17-2017 12:46-0400 Pulse Oximetry 96 % [facility] 09-17-2017 12:46-0400 Respiratory Rate 18 /min Karla Clark [facility] 09-17-2017 12:46-0400 Weight 75.35 kg Karla Clark [facility] 09-17-2017 10:46-0400 Body height 160.02 cm Karla Clark CNP Work Phone: [facility] Work Phone: 09-17-2017 10:46-0400 Body mass index (BMI) [Ratio] 29.4 kg/m2 Karla Clark CNP Work Phone: [facility] Work Phone: 09-17-2017 10:46-0400 Body surface area Derived from formula 1.79 m2 Karla Clark CNP Work Phone: [facility] Work Phone: 09-17-2017 10:46-0400 Body temperature 98.9 [degF] Karla Clark CNP Work Phone: [facility] Work Phone: 09-17-2017 10:46-0400 Body weight 75.3 kg Karla Clark CNP Work Phone: [facility] Work Phone: 09-17-2017 10:46-0400 Diastolic blood pressure 61 mm[Hg] Karla Clark CNP Work Phone: [facility] Work Phone: 09-17-2017 10:46-0400 Heart rate 54 /min Karla Clark CNP Work Phone: [facility] Work Phone: 09-17-2017 10:46-0400 Respiratory rate 18 /min Karla Clark CNP Work Phone: [facility] Work Phone: 09-17-2017 10:46-0400 Systolic blood pressure 91 mm[Hg] Karla Clark [facility] Work Phone: [facility] Work Phone: 07-30-2017 11:43-0500 BMI (Body Mass Index) 28.87 kg/m2 [facility] 07-30-2017 11:43-0500 Body Temperature 97.2 [degF] [facility] 07-30-2017 11:43-0500 BP Diastolic 84 mm[Hg] [facility] 07-30-2017 11:43-0500 BP Systolic 119 mm[Hg] [facility] 07-30-2017 11:43-0500 BSA (Body Surface Area) 1.81 m2 [facility] 07-30-2017 11:43-0500 Height 160.02 cm [facility] 07-30-2017 11:43-0500 Pulse (Heart Rate) 63 /min [facility] 07-30-2017 11:43-0500 Pulse Oximetry 98 % [facility] 07-30-2017 11:43-0500 Respiratory Rate 20 /min [facility] 07-30-2017 11:43-0500 Weight 73.94 kg [facility] 07-30-2017 10:43-0500 BMI (Body Mass Index) 28.87 kg/m2 [facility] 07-30-2017 10:43-0500 Body Temperature 97.2 [degF] [facility] 07-30-2017 10:43-0500 BP Diastolic 84 mm[Hg] [facility] 07-30-2017 10:43-0500 BP Systolic 119 mm[Hg] [facility] 07-30-2017 10:43-0500 BSA (Body Surface Area) 1.81 m2 [facility] 07-30-2017 10:43-0500 Height 160.02 cm [facility] 07-30-2017 10:43-0500 Pulse (Heart Rate) 63 /min [facility] 07-30-2017 10:43-0500 Pulse Oximetry 98 % [facility] 07-30-2017 10:43-0500 Respiratory Rate 20 /min [facility] 07-30-2017 10:43-0500 Weight 73.94 kg [facility] 05-14-2017 12:46-0500 BMI (Body Mass Index) 29.23 kg/m2 [facility] 05-14-2017 12:46-0500 Body Temperature 98.2 [degF] [facility] 05-14-2017 12:46-0500 BP Diastolic 80 mm[Hg] [facility] 05-14-2017 12:46-0500 BP Systolic 118 mm[Hg] [facility] 05-14-2017 12:46-0500 BSA (Body Surface Area) 1.82 m2 [facility] 05-14-2017 12:46-0500 Height 160.02 cm [facility] 05-14-2017 12:46-0500 Pulse (Heart Rate) 88 /min Karla Amber [facility] 05-14-2017 12:46-0500 Pulse Oximetry 98 % [facility] 05-14-2017 12:46-0500 Respiratory Rate 18 /min [facility] 05-14-2017 12:46-0500 Weight 74.84 kg [facility] 05-14-2017 11:46-0500 BMI (Body Mass Index) 29.23 kg/m2 [facility] 05-14-2017 11:46-0500 Body Temperature 98.2 [degF] [facility] 05-14-2017 11:46-0500 BP Diastolic 80 mm[Hg] [facility] 05-14-2017 11:46-0500 BP Systolic 118 mm[Hg] [facility] 05-14-2017 11:46-0500 BSA (Body Surface Area) 1.82 m2 [facility] 05-14-2017 11:46-0500 Height 160.02 cm [facility] 05-14-2017 11:46-0500 Pulse (Heart Rate) 88 /min [facility] 05-14-2017 11:46-0500 Pulse Oximetry 98 % [facility] 05-14-2017 11:46-0500 Respiratory Rate 18 /min [facility] 05-14-2017 11:46-0500 Weight 74.84 kg [facility] 04-18-2017 17:33-0500 BMI (Body Mass Index) 29.25 kg/m2 [facility] 04-18-2017 17:33-0500 Body Temperature 97.5 [degF] [facility] 04-18-2017 17:33-0500 BP Diastolic 60 mm[Hg] [facility] 04-18-2017 17:33-0500 BP Systolic 94 mm[Hg] [facility] 04-18-2017 17:33-0500 BSA (Body Surface Area) 1.82 m2 [facility] 04-18-2017 17:33-0500 Height 160.02 cm [facility] 04-18-2017 17:33-0500 Pulse (Heart Rate) 48 /min [facility] 04-18-2017 17:33-0500 Pulse Oximetry 97 % [facility] 04-18-2017 17:33-0500 Respiratory Rate 18 /min [facility] 04-18-2017 17:33-0500 Weight 74.9 kg [facility] 04-18-2017 16:33-0500 BMI (Body Mass Index) 29.25 kg/m2 [facility] 04-18-2017 16:33-0500 Body Temperature 97.5 [degF] [facility] 04-18-2017 16:33-0500 BP Diastolic 60 mm[Hg] [facility] 04-18-2017 16:33-0500 BP Systolic 94 mm[Hg] [facility] 04-18-2017 16:33-0500 BSA (Body Surface Area) 1.82 m2 [facility] 04-18-2017 16:33-0500 Height 160.02 cm [facility] 04-18-2017 16:33-0500 Pulse (Heart Rate) 48 /min [facility] 04-18-2017 16:33-0500 Pulse Oximetry 97 % [facility] 04-18-2017 16:33-0500 Respiratory Rate 18 /min [facility] 04-18-2017 16:33-0500 Weight 74.9 kg [facility] 03-07-2017 17:07-0400 BMI (Body Mass Index) 29.25 kg/m2 [facility] 03-07-2017 17:07-0400 Body Temperature 98.7 [degF] [facility] 03-07-2017 17:07-0400 BP Diastolic 68 mm[Hg] [facility] 03-07-2017 17:07-0400 BP Systolic 100 mm[Hg] [facility] 03-07-2017 17:07-0400 BSA (Body Surface Area) 1.82 m2 [facility] 03-07-2017 17:07-0400 Height 160.02 cm [facility] 03-07-2017 17:07-0400 Pulse (Heart Rate) 65 /min [facility] 03-07-2017 17:07-0400 Pulse Oximetry 100 % [facility] 03-07-2017 17:07-0400 Respiratory Rate 18 /min [facility] 03-07-2017 17:07-0400 Weight 74.9 kg [facility] 03-07-2017 16:07-0400 BMI (Body Mass Index) 29.25 kg/m2 [facility] 03-07-2017 16:07-0400 Body Temperature 98.7 [degF] [facility] 03-07-2017 16:07-0400 BP Diastolic 68 mm[Hg] [facility] 03-07-2017 16:07-0400 BP Systolic 100 mm[Hg] [facility] 03-07-2017 16:07-0400 BSA (Body Surface Area) 1.82 m2 [facility] 03-07-2017 16:07-0400 Height 160.02 cm [facility] 03-07-2017 16:07-0400 Pulse (Heart Rate) 65 /min [facility] 03-07-2017 16:07-0400 Pulse Oximetry 100 % [facility] 03-07-2017 16:07-0400 Respiratory Rate 18 /min [facility] 03-07-2017 16:07-0400 Weight 74.9 kg [facility] 03-05-2017 16:29-0400 BMI (Body Mass Index) 29.1 kg/m2 [facility] 03-05-2017 16:29-0400 Body Temperature 97.6 [degF] [facility] 03-05-2017 16:29-0400 BP Diastolic 60 mm[Hg] [facility] 03-05-2017 16:29-0400 BP Systolic 102 mm[Hg] [facility] 03-05-2017 16:29-0400 BSA (Body Surface Area) 1.82 m2 [facility] 03-05-2017 16:29-0400 Height 160.02 cm [facility] 03-05-2017 16:29-0400 Pulse (Heart Rate) 60 /min [facility] 03-05-2017 16:29-0400 Pulse Oximetry 99 % [facility] 03-05-2017 16:29-0400 Respiratory Rate 18 /min [facility] 03-05-2017 16:29-0400 Weight 74.5 kg [facility] 03-05-2017 15:29-0400 BMI (Body Mass Index) 29.1 kg/m2 [facility] 03-05-2017 15:29-0400 Body Temperature 97.6 [degF] [facility] 03-05-2017 15:29-0400 BP Diastolic 60 mm[Hg] [facility] 03-05-2017 15:29-0400 BP Systolic 102 mm[Hg] [facility] 03-05-2017 15:29-0400 BSA (Body Surface Area) 1.82 m2 [facility] 03-05-2017 15:29-0400 Height 160.02 cm [facility] 03-05-2017 15:29-0400 Pulse (Heart Rate) 60 /min [facility] 03-05-2017 15:29-0400 Pulse Oximetry 99 % [facility] 03-05-2017 15:29-0400 Respiratory Rate 18 /min [facility] 03-05-2017 15:29-0400 Weight 74.5 kg [facility] 01-01-2017 11:52-0400 BMI (Body Mass Index) 28.59 kg/m2 [facility] 01-01-2017 11:52-0400 Body Temperature 97.5 [degF] [facility] 01-01-2017 11:52-0400 BP Diastolic 69 mm[Hg] [facility] 01-01-2017 11:52-0400 BP Systolic 114 mm[Hg] [facility] 01-01-2017 11:52-0400 BSA (Body Surface Area) 1.8 m2 [facility] 01-01-2017 11:52-0400 Height 160.02 cm [facility] 01-01-2017 11:52-0400 Pulse (Heart Rate) 61 /min [facility] 01-01-2017 11:52-0400 Pulse Oximetry 99 % [facility] 01-01-2017 11:52-0400 Respiratory Rate 20 /min [facility] 01-01-2017 11:52-0400 Weight 73.2 kg [facility] 01-01-2017 10:52-0400 BMI (Body Mass Index) 28.59 kg/m2 [facility] 01-01-2017 10:52-0400 Body Temperature 97.5 [degF] [facility] 01-01-2017 10:52-0400 BP Diastolic 69 mm[Hg] [facility] 01-01-2017 10:52-0400 BP Systolic 114 mm[Hg] [facility] 01-01-2017 10:52-0400 BSA (Body Surface Area) 1.8 m2 [facility] 01-01-2017 10:52-0400 Height 160.02 cm [facility] 01-01-2017 10:52-0400 Pulse (Heart Rate) 61 /min [facility] 01-01-2017 10:52-0400 Pulse Oximetry 99 % [facility] 01-01-2017 10:52-0400 Respiratory Rate 20 /min [facility] 01-01-2017 10:52-0400 Weight 73.2 kg [facility] 12-06-2016 12:51-0400 BMI (Body Mass Index) 28.79 kg/m2 [facility] 12-06-2016 12:51-0400 Body Temperature 97.5 [degF] [facility] 12-06-2016 12:51-0400 BP Diastolic 80 mm[Hg] [facility] 12-06-2016 12:51-0400 BP Systolic 104 mm[Hg] [facility] 12-06-2016 12:51-0400 BSA (Body Surface Area) 1.81 m2 [facility] 12-06-2016 12:51-0400 Height 160.02 cm [facility] 12-06-2016 12:51-0400 Pulse (Heart Rate) 81 /min [facility] 12-06-2016 12:51-0400 Pulse Oximetry 98 % [facility] 12-06-2016 12:51-0400 Respiratory Rate 18 /min [facility] 12-06-2016 12:51-0400 Weight 73.71 kg [facility] 12-06-2016 11:51-0400 BMI (Body Mass Index) 28.79 kg/m2 [facility] 12-06-2016 11:51-0400 Body Temperature 97.5 [degF] [facility] 12-06-2016 11:51-0400 BP Diastolic 80 mm[Hg] [facility] 12-06-2016 11:51-0400 BP Systolic 104 mm[Hg] [facility] 12-06-2016 11:51-0400 BSA (Body Surface Area) 1.81 m2 [facility] 12-06-2016 11:51-0400 Height 160.02 cm [facility] 12-06-2016 11:51-0400 Pulse (Heart Rate) 81 /min [facility] 12-06-2016 11:51-0400 Pulse Oximetry 98 % [facility] 12-06-2016 11:51-0400 Respiratory Rate 18 /min [facility] 12-06-2016 11:51-0400 Weight 73.71 kg [facility] 11-06-2016 14:21-0400 BMI (Body Mass Index) 29.58 kg/m2 [facility] 11-06-2016 14:21-0400 Body Temperature 97.5 [degF] [facility] 11-06-2016 14:21-0400 BP Diastolic 76 mm[Hg] [facility] 11-06-2016 14:21-0400 BP Systolic 117 mm[Hg] [facility] 11-06-2016 14:21-0400 BSA (Body Surface Area) 1.83 m2 [facility] 11-06-2016 14:21-0400 Height 160.02 cm [facility] 11-06-2016 14:21-0400 Pulse (Heart Rate) 64 /min [facility] 11-06-2016 14:21-0400 Pulse Oximetry 97 % [facility] 11-06-2016 14:21-0400 Respiratory Rate 18 /min [facility] 11-06-2016 14:21-0400 Weight 75.75 kg [facility] 11-06-2016 13:21-0400 BMI (Body Mass Index) 29.58 kg/m2 [facility] 11-06-2016 13:21-0400 Body Temperature 97.5 [degF] [facility] 11-06-2016 13:21-0400 BP Diastolic 76 mm[Hg] [facility] 11-06-2016 13:21-0400 BP Systolic 117 mm[Hg] [facility] 11-06-2016 13:21-0400 BSA (Body Surface Area) 1.83 m2 [facility] 11-06-2016 13:21-0400 Height 160.02 cm [facility] 11-06-2016 13:21-0400 Pulse (Heart Rate) 64 /min [facility] 11-06-2016 13:21-0400 Pulse Oximetry 97 % [facility] 11-06-2016 13:21-0400 Respiratory Rate 18 /min [facility] 11-06-2016 13:21-0400 Weight 75.75 kg [facility] 09-27-2016 17:31-0400 BMI (Body Mass Index) 28.67 kg/m2 [facility] 09-27-2016 17:31-0400 Body Temperature 98.2 [degF] [facility] 09-27-2016 17:31-0400 BP Diastolic 64 mm[Hg] [facility] 09-27-2016 17:31-0400 BP Systolic 105 mm[Hg] [facility] 09-27-2016 17:31-0400 BSA (Body Surface Area) 1.85 m2 [facility] 09-27-2016 17:31-0400 Height 162.56 cm [facility] 09-27-2016 17:31-0400 Pulse (Heart Rate) 102 /min [facility] 09-27-2016 17:31-0400 Pulse Oximetry 95 % [facility] 09-27-2016 17:31-0400 Respiratory Rate 18 /min [facility] 09-27-2016 17:31-0400 Weight 75.75 kg [facility] 09-27-2016 16:31-0400 BMI (Body Mass Index) 28.67 kg/m2 [facility] 09-27-2016 16:31-0400 Body Temperature 98.2 [degF] [facility] 09-27-2016 16:31-0400 BP Diastolic 64 mm[Hg] [facility] 09-27-2016 16:31-0400 BP Systolic 105 mm[Hg] [facility] 09-27-2016 16:31-0400 BSA (Body Surface Area) 1.85 m2 [facility] 09-27-2016 16:31-0400 Height 162.56 cm [facility] 09-27-2016 16:31-0400 Pulse (Heart Rate) 102 /min [facility] 09-27-2016 16:31-0400 Pulse Oximetry 95 % [facility] 09-27-2016 16:31-0400 Respiratory Rate 18 /min [facility] 09-27-2016 16:31-0400 Weight 75.75 kg [facility] 08-21-2016 13:22-0400 BMI (Body Mass Index) 28.41 kg/m2 [facility] 08-21-2016 13:22-0400 Body Temperature 97.7 [degF] [facility] 08-21-2016 13:22-0400 BP Diastolic 80 mm[Hg] [facility] 08-21-2016 13:22-0400 BP Systolic 110 mm[Hg] [facility] 08-21-2016 13:22-0400 BSA (Body Surface Area) 1.84 m2 [facility] 08-21-2016 13:22-0400 Height 162.56 cm [facility] 08-21-2016 13:22-0400 Pulse (Heart Rate) 58 /min [facility] 08-21-2016 13:22-0400 Pulse Oximetry 97 % [facility] 08-21-2016 13:22-0400 Respiratory Rate 18 /min [facility] 08-21-2016 13:22-0400 Weight 75.07 kg [facility] 08-21-2016 12:22-0400 BMI (Body Mass Index) 28.41 kg/m2 [facility] 08-21-2016 12:22-0400 Body Temperature 97.7 [degF] [facility] 08-21-2016 12:22-0400 BP Diastolic 80 mm[Hg] [facility] 08-21-2016 12:22-0400 BP Systolic 110 mm[Hg] [facility] 08-21-2016 12:22-0400 BSA (Body Surface Area) 1.84 m2 [facility] 08-21-2016 12:22-0400 Height 162.56 cm [facility] 08-21-2016 12:22-0400 Pulse (Heart Rate) 58 /min [facility] 08-21-2016 12:22-0400 Pulse Oximetry 97 % [facility] 08-21-2016 12:22-0400 Respiratory Rate 18 /min [facility] 08-21-2016 12:22-0400 Weight 75.07 kg [facility] 06-26-2016 16:13-0500 BMI (Body Mass Index) 28.9 kg/m2 [facility] 06-26-2016 16:13-0500 Body Temperature 97 [degF] [facility] 06-26-2016 16:13-0500 BP Diastolic 80 mm[Hg] [facility] 06-26-2016 16:13-0500 BP Systolic 106 mm[Hg] [facility] 06-26-2016 16:13-0500 BSA (Body Surface Area) 1.86 m2 [facility] 06-26-2016 16:13-0500 Height 162.56 cm [facility] 06-26-2016 16:13-0500 Pulse (Heart Rate) 61 /min [facility] 06-26-2016 16:13-0500 Pulse Oximetry 97 % [facility] 06-26-2016 16:13-0500 Respiratory Rate 18 /min [facility] 06-26-2016 16:13-0500 Weight 76.37 kg [facility] 06-26-2016 15:13-0500 BMI (Body Mass Index) 28.9 kg/m2 [facility] 06-26-2016 15:13-0500 Body Temperature 97 [degF] [facility] 06-26-2016 15:13-0500 BP Diastolic 80 mm[Hg] [facility] 06-26-2016 15:13-0500 BP Systolic 106 mm[Hg] [facility] 06-26-2016 15:13-0500 BSA (Body Surface Area) 1.86 m2 [facility] 06-26-2016 15:13-0500 Height 162.56 cm [facility] 06-26-2016 15:13-0500 Pulse (Heart Rate) 61 /min [facility] 06-26-2016 15:13-0500 Pulse Oximetry 97 % [facility] 06-26-2016 15:13-0500 Respiratory Rate 18 /min [facility] 06-26-2016 15:13-0500 Weight 76.37 kg [facility] 06-12-2016 13:32-0500 BMI (Body Mass Index) 27.85 kg/m2 [facility] 06-12-2016 13:32-0500 Body Temperature 97.5 [degF] [facility] 06-12-2016 13:32-0500 BP Diastolic 68 mm[Hg] [facility] 06-12-2016 13:32-0500 BP Systolic 100 mm[Hg] [facility] 06-12-2016 13:32-0500 BSA (Body Surface Area) 1.82 m2 [facility] 06-12-2016 13:32-0500 Height 162.56 cm [facility] 06-12-2016 13:32-0500 Pulse (Heart Rate) 68 /min [facility] 06-12-2016 13:32-0500 Pulse Oximetry 98 % [facility] 06-12-2016 13:32-0500 Respiratory Rate 18 /min [facility] 06-12-2016 13:32-0500 Weight 73.6 kg [facility] 06-12-2016 12:32-0500 BMI (Body Mass Index) 27.85 kg/m2 [facility] 06-12-2016 12:32-0500 Body Temperature 97.5 [degF] [facility] 06-12-2016 12:32-0500 BP Diastolic 68 mm[Hg] [facility] 06-12-2016 12:32-0500 BP Systolic 100 mm[Hg] [facility] 06-12-2016 12:32-0500 BSA (Body Surface Area) 1.82 m2 [facility] 06-12-2016 12:32-0500 Height 162.56 cm [facility] 06-12-2016 12:32-0500 Pulse (Heart Rate) 68 /min [facility] 06-12-2016 12:32-0500 Pulse Oximetry 98 % [facility] 06-12-2016 12:32-0500 Respiratory Rate 18 /min [facility] 06-12-2016 12:32-0500 Weight 73.6 kg [facility] 05-22-2016 15:51-0500 BMI (Body Mass Index) 27.81 kg/m2 [facility] 05-22-2016 15:51-0500 Body Temperature 98 [degF] [facility] 05-22-2016 15:51-0500 BP Diastolic 67 mm[Hg] [facility] 05-22-2016 15:51-0500 BP Systolic 104 mm[Hg] [facility] 05-22-2016 15:51-0500 BSA (Body Surface Area) 1.82 m2 [facility] 05-22-2016 15:51-0500 Height 162.56 cm [facility] 05-22-2016 15:51-0500 Pulse (Heart Rate) 89 /min [facility] 05-22-2016 15:51-0500 Pulse Oximetry 99 % [facility] 05-22-2016 15:51-0500 Respiratory Rate 18 /min [facility] 05-22-2016 15:51-0500 Weight 73.48 kg [facility] 05-22-2016 14:51-0500 BMI (Body Mass Index) 27.81 kg/m2 [facility] 05-22-2016 14:51-0500 Body Temperature 98 [degF] [facility] 05-22-2016 14:51-0500 BP Diastolic 67 mm[Hg] [facility] 05-22-2016 14:51-0500 BP Systolic 104 mm[Hg] [facility] 05-22-2016 14:51-0500 BSA (Body Surface Area) 1.82 m2 [facility] 05-22-2016 14:51-0500 Height 162.56 cm [facility] 05-22-2016 14:51-0500 Pulse (Heart Rate) 89 /min [facility] 05-22-2016 14:51-0500 Pulse Oximetry 99 % [facility] 05-22-2016 14:51-0500 Respiratory Rate 18 /min [facility] 05-22-2016 14:51-0500 Weight 73.48 kg [facility] 04-10-2016 12:54-0500 BMI (Body Mass Index) 27.7 kg/m2 [facility] 04-10-2016 12:54-0500 Body Temperature 97.8 [degF] [facility] 04-10-2016 12:54-0500 BP Diastolic 74 mm[Hg] [facility] 04-10-2016 12:54-0500 BP Systolic 110 mm[Hg] [facility] 04-10-2016 12:54-0500 BSA (Body Surface Area) 1.82 m2 [facility] 04-10-2016 12:54-0500 Height 162.56 cm [facility] 04-10-2016 12:54-0500 Pulse (Heart Rate) 58 /min [facility] 04-10-2016 12:54-0500 Pulse Oximetry 98 % [facility] 04-10-2016 12:54-0500 Respiratory Rate 20 /min [facility] 04-10-2016 12:54-0500 Weight 73.2 kg [facility] 04-10-2016 11:54-0500 BMI (Body Mass Index) 27.7 kg/m2 [facility] 04-10-2016 11:54-0500 Body Temperature 97.8 [degF] [facility] 04-10-2016 11:54-0500 BP Diastolic 74 mm[Hg] [facility] 04-10-2016 11:54-0500 BP Systolic 110 mm[Hg] [facility] 04-10-2016 11:54-0500 BSA (Body Surface Area) 1.82 m2 [facility] 04-10-2016 11:54-0500 Height 162.56 cm [facility] 04-10-2016 11:54-0500 Pulse (Heart Rate) 58 /min [facility] 04-10-2016 11:54-0500 Pulse Oximetry 98 % [facility] 04-10-2016 11:54-0500 Respiratory Rate 20 /min [facility] 04-10-2016 11:54-0500 Weight 73.2 kg [facility] 03-20-2016 13:39-0400 BMI (Body Mass Index) 27.83 kg/m2 [facility] 03-20-2016 13:39-0400 Body Temperature 98.6 [degF] [facility] 03-20-2016 13:39-0400 BP Diastolic 80 mm[Hg] [facility] 03-20-2016 13:39-0400 BP Systolic 122 mm[Hg] [facility] 03-20-2016 13:39-0400 BSA (Body Surface Area) 1.82 m2 [facility] 03-20-2016 13:39-0400 Height 162.56 cm [facility] 03-20-2016 13:39-0400 Pulse (Heart Rate) 69 /min [facility] 03-20-2016 13:39-0400 Pulse Oximetry 98 % [facility] 03-20-2016 13:39-0400 Respiratory Rate 18 /min [facility] 03-20-2016 13:39-0400 Weight 73.54 kg [facility] 03-20-2016 12:39-0400 BMI (Body Mass Index) 27.83 kg/m2 [facility] 03-20-2016 12:39-0400 Body Temperature 98.6 [degF] [facility] 03-20-2016 12:39-0400 BP Diastolic 80 mm[Hg] [facility] 03-20-2016 12:39-0400 BP Systolic 122 mm[Hg] [facility] 03-20-2016 12:39-0400 BSA (Body Surface Area) 1.82 m2 [facility] 03-20-2016 12:39-0400 Height 162.56 cm [facility] 03-20-2016 12:39-0400 Pulse (Heart Rate) 69 /min [facility] 03-20-2016 12:39-0400 Pulse Oximetry 98 % [facility] 03-20-2016 12:39-0400 Respiratory Rate 18 /min [facility] 03-20-2016 12:39-0400 Weight 73.54 kg [facility] 03-09-2016 14:12-0400 BMI (Body Mass Index) 27.64 kg/m2 [facility] 03-09-2016 14:12-0400 Body Temperature 99.2 [degF] [facility] 03-09-2016 14:12-0400 BP Diastolic 66 mm[Hg] [facility] 03-09-2016 14:12-0400 BP Systolic 102 mm[Hg] [facility] 03-09-2016 14:12-0400 BSA (Body Surface Area) 1.82 m2 [facility] 03-09-2016 14:12-0400 Height 162.56 cm [facility] 03-09-2016 14:12-0400 Pulse (Heart Rate) 70 /min [facility] 03-09-2016 14:12-0400 Pulse Oximetry 97 % [facility] 03-09-2016 14:12-0400 Respiratory Rate 18 /min [facility] 03-09-2016 14:12-0400 Weight 73.03 kg [facility] 03-09-2016 13:12-0400 BMI (Body Mass Index) 27.64 kg/m2 [facility] 03-09-2016 13:12-0400 Body Temperature 99.2 [degF] [facility] 03-09-2016 13:12-0400 BP Diastolic 66 mm[Hg] [facility] 03-09-2016 13:12-0400 BP Systolic 102 mm[Hg] [facility] 03-09-2016 13:12-0400 BSA (Body Surface Area) 1.82 m2 [facility] 03-09-2016 13:12-0400 Height 162.56 cm [facility] 03-09-2016 13:12-0400 Pulse (Heart Rate) 70 /min [facility] 03-09-2016 13:12-0400 Pulse Oximetry 97 % [facility] 03-09-2016 13:12-0400 Respiratory Rate 18 /min [facility] 03-09-2016 13:12-0400 Weight 73.03 kg [facility] 03-06-2016 18:13-0400 BMI (Body Mass Index) 27.72 kg/m2 [facility] 03-06-2016 18:13-0400 Body Temperature 98.6 [degF] [facility] 03-06-2016 18:13-0400 BP Diastolic 70 mm[Hg] [facility] 03-06-2016 18:13-0400 BP Systolic 107 mm[Hg] [facility] 03-06-2016 18:13-0400 BSA (Body Surface Area) 1.82 m2 [facility] 03-06-2016 18:13-0400 Height 162.56 cm [facility] 03-06-2016 18:13-0400 Pulse (Heart Rate) 65 /min [facility] 03-06-2016 18:13-0400 Pulse Oximetry 97 % [facility] 03-06-2016 18:13-0400 Respiratory Rate 18 /min [facility] 03-06-2016 18:13-0400 Weight 73.26 kg [facility] 03-06-2016 17:13-0400 BMI (Body Mass Index) 27.72 kg/m2 [facility] 03-06-2016 17:13-0400 Body Temperature 98.6 [degF] [facility] 03-06-2016 17:13-0400 BP Diastolic 70 mm[Hg] [facility] 03-06-2016 17:13-0400 BP Systolic 107 mm[Hg] [facility] 03-06-2016 17:13-0400 BSA (Body Surface Area) 1.82 m2 [facility] 03-06-2016 17:13-0400 Height 162.56 cm [facility] 03-06-2016 17:13-0400 [facility] 03-06-2016 17:13-0400 Pulse Oximetry 97 % [facility] 03-06-2016 17:13-0400 Respiratory Rate 18 /min [facility] 03-06-2016 17:13-0400 Weight 73.26 kg [facility] 02-21-2016 13:12-0400 BMI (Body Mass Index) 28.15 kg/m2 [facility] 02-21-2016 13:12-0400 Body Temperature 97.2 [degF] [facility] 02-21-2016 13:12-0400 BP Diastolic 74 mm[Hg] [facility] 02-21-2016 13:12-0400 BP Systolic 118 mm[Hg] [facility] 02-21-2016 13:12-0400 BSA (Body Surface Area) 1.83 m2 [facility] 02-21-2016 13:12-0400 Height 162.56 cm [facility] 02-21-2016 13:12-0400 Pulse (Heart Rate) 63 /min [facility] 02-21-2016 13:12-0400 Pulse Oximetry 99 % [facility] 02-21-2016 13:12-0400 Respiratory Rate 18 /min [facility] 02-21-2016 13:12-0400 Weight 74.39 kg [facility] 02-21-2016 12:12-0400 BMI (Body Mass Index) 28.15 kg/m2 [facility] 02-21-2016 12:12-0400 Body Temperature 97.2 [degF] [facility] 02-21-2016 12:12-0400 BP Diastolic 74 mm[Hg] [facility] 02-21-2016 12:12-0400 BP Systolic 118 mm[Hg] [facility] 02-21-2016 12:12-0400 BSA (Body Surface Area) 1.83 m2 [facility] 02-21-2016 12:12-0400 Height 162.56 cm [facility] 02-21-2016 12:12-0400 Pulse (Heart Rate) 63 /min [facility] 02-21-2016 12:12-0400 Pulse Oximetry 99 % [facility] 02-21-2016 12:12-0400 Respiratory Rate 18 /min [facility] 02-21-2016 12:12-0400 Weight 74.39 kg [facility] 01-11-2016 13:02-0400 BMI (Body Mass Index) 28.34 kg/m2 [facility] 01-11-2016 13:02-0400 Body Temperature 98.2 [degF] [facility] 01-11-2016 13:02-0400 BP Diastolic 74 mm[Hg] [facility] 01-11-2016 13:02-0400 BP Systolic 126 mm[Hg] [facility] 01-11-2016 13:02-0400 BSA (Body Surface Area) 1.84 m2 [facility] 01-11-2016 13:02-0400 Height 162.56 cm [facility] 01-11-2016 13:02-0400 Pulse (Heart Rate) 69 /min [facility] 01-11-2016 13:02-0400 Pulse Oximetry 97 % [facility] 01-11-2016 13:02-0400 Respiratory Rate 18 /min [facility] 01-11-2016 13:02-0400 Weight 74.9 kg [facility] 01-11-2016 12:02-0400 BMI (Body Mass Index) 28.34 kg/m2 [facility] 01-11-2016 12:02-0400 Body Temperature 98.2 [degF] [facility] 01-11-2016 12:02-0400 BP Diastolic 74 mm[Hg] [facility] 01-11-2016 12:02-0400 BP Systolic 126 mm[Hg] [facility] 01-11-2016 12:02-0400 BSA (Body Surface Area) 1.84 m2 [facility] 01-11-2016 12:02-0400 Height 162.56 cm [facility] 01-11-2016 12:02-0400 [facility] 69 [facility] 01-11-2016 12:02-0400 Pulse Oximetry 97 % [facility] 01-11-2016 12:02-0400 Respiratory Rate 18 /min [facility] 01-11-2016 12:02-0400 Weight 74.9 kg [facility] 12-08-2015 11:37-0400 BMI (Body Mass Index) 28.52 kg/m2 [facility] 12-08-2015 11:37-0400 BMI (Body Mass Index) 28.51 kg/m2 [facility] 12-08-2015 11:37-0400 Body Temperature 98.1 [degF] [facility] 12-08-2015 11:37-0400 BP Diastolic 60 mm[Hg] [facility] 12-08-2015 11:37-0400 BP Systolic 110 mm[Hg] [facility] 12-08-2015 11:37-0400 BSA (Body Surface Area) 1.84 m2 [facility] 12-08-2015 11:37-0400 Height 162.56 cm [facility] 12-08-2015 11:37-0400 Pulse (Heart Rate) 100 /min [facility] 12-08-2015 11:37-0400 Pulse Oximetry 98 % [facility] 12-08-2015 11:37-0400 Respiratory Rate 18 /min [facility] 12-08-2015 11:37-0400 Weight 75.35 kg [facility] 12-08-2015 10:37-0400 BMI (Body Mass Index) 28.52 kg/m2 [facility] 12-08-2015 10:37-0400 BMI (Body Mass Index) 28.51 kg/m2 [facility] 12-08-2015 10:37-0400 Body Temperature 98.1 [degF] [facility] 12-08-2015 10:37-0400 BP Diastolic 60 mm[Hg] [facility] 12-08-2015 10:37-0400 BP Systolic 110 mm[Hg] [facility] 12-08-2015 10:37-0400 BSA (Body Surface Area) 1.84 m2 [facility] 12-08-2015 10:37-0400 Height 162.56 cm [facility] 12-08-2015 10:37-0400 Pulse (Heart Rate) 100 /min [facility] 12-08-2015 10:37-0400 Pulse Oximetry 98 % [facility] 12-08-2015 10:37-0400 Respiratory Rate 18 /min [facility] 12-08-2015 10:37-0400 Weight 75.35 kg [facility] 10-25-2015 11:43-0400 BMI (Body Mass Index) 28.24 kg/m2 [facility] 10-25-2015 11:43-0400 Body Temperature 98.2 [degF] [facility] 10-25-2015 11:43-0400 BP Diastolic 70 mm[Hg] [facility] 10-25-2015 11:43-0400 BP Systolic 110 mm[Hg] [facility] 10-25-2015 11:43-0400 BSA (Body Surface Area) 1.84 m2 [facility] 10-25-2015 11:43-0400 Height 162.56 cm [facility] 10-25-2015 11:43-0400 Pulse (Heart Rate) 55 /min [facility] 10-25-2015 11:43-0400 Pulse Oximetry 99 % [facility] 10-25-2015 11:43-0400 Respiratory Rate 18 /min [facility] 10-25-2015 11:43-0400 Weight 74.62 kg [facility] 10-25-2015 10:43-0400 BMI (Body Mass Index) 28.24 kg/m2 [facility] 10-25-2015 10:43-0400 Body Temperature 98.2 [degF] [facility] 10-25-2015 10:43-0400 BP Diastolic 70 mm[Hg] [facility] 10-25-2015 10:43-0400 BP Systolic 110 mm[Hg] [facility] 10-25-2015 10:43-0400 BSA (Body Surface Area) 1.84 m2 [facility] 10-25-2015 10:43-0400 Height 162.56 cm [facility] 10-25-2015 10:43-0400 Pulse (Heart Rate) 55 /min [facility] 10-25-2015 10:43-0400 Pulse Oximetry 99 % [facility] 10-25-2015 10:43-0400 Respiratory Rate 18 /min [facility] 10-25-2015 10:43-0400 Weight 74.62 kg [facility] 09-22-2015 11:19-0400 BMI (Body Mass Index) 30.22 kg/m2 [facility] 09-22-2015 11:19-0400 Body Temperature 98.6 [degF] [facility] 09-22-2015 11:19-0400 BP Diastolic 78 mm[Hg] [facility] 09-22-2015 11:19-0400 BP Systolic 132 mm[Hg] [facility] 09-22-2015 11:19-0400 BSA (Body Surface Area) 1.81 m2 [facility] 09-22-2015 11:19-0400 Height 157.48 cm [facility] 09-22-2015 11:19-0400 Pulse (Heart Rate) 86 /min [facility] 09-22-2015 11:19-0400 Pulse Oximetry 98 % [facility] 09-22-2015 11:19-0400 Respiratory Rate 18 /min [facility] 09-22-2015 11:19-0400 Weight 74.96 kg [facility] 09-22-2015 10:19-0400 BMI (Body Mass Index) 30.22 kg/m2 [facility] 09-22-2015 10:19-0400 Body Temperature 98.6 [degF] [facility] 09-22-2015 10:19-0400 BP Diastolic 78 mm[Hg] [facility] 09-22-2015 10:19-0400 BP Systolic 132 mm[Hg] [facility] 09-22-2015 10:19-0400 BSA (Body Surface Area) 1.81 m2 [facility] 09-22-2015 10:19-0400 Height 157.48 cm [facility] 09-22-2015 10:19-0400 Pulse (Heart Rate) 86 /min [facility] 09-22-2015 10:19-0400 Pulse Oximetry 98 % [facility] 09-22-2015 10:19-0400 Respiratory Rate 18 /min [facility] 09-22-2015 10:19-0400 Weight 74.96 kg [facility] 09-08-2015 11:54-0400 BMI (Body Mass Index) 30.04 kg/m2 [facility] 09-08-2015 11:54-0400 BP Diastolic 70 mm[Hg] [facility] 09-08-2015 11:54-0400 BP Systolic 118 mm[Hg] [facility] 09-08-2015 11:54-0400 BSA (Body Surface Area) 1.81 m2 [facility] 09-08-2015 11:54-0400 Height 157.48 cm [facility] 09-08-2015 11:54-0400 Pulse (Heart Rate) 75 /min [facility] 09-08-2015 11:54-0400 Pulse Oximetry 97 % [facility] 09-08-2015 11:54-0400 Respiratory Rate 18 /min [facility] 09-08-2015 11:54-0400 Weight 74.5 kg [facility] 09-08-2015 10:54-0400 BMI (Body Mass Index) 30.04 kg/m2 [facility] 09-08-2015 10:54-0400 BP Diastolic 70 mm[Hg] [facility] 09-08-2015 10:54-0400 BP Systolic 118 mm[Hg] [facility] 09-08-2015 10:54-0400 BSA (Body Surface Area) 1.81 m2 [facility] 09-08-2015 10:54-0400 Height 157.48 cm [facility] 09-08-2015 10:54-0400 Pulse (Heart Rate) 75 /min [facility] 09-08-2015 10:54-0400 Pulse Oximetry 97 % [facility] 09-08-2015 10:54-0400 Respiratory Rate 18 /min [facility] 09-08-2015 10:54-0400 Weight 74.5 kg [facility] Encounters Encounter Date Encounter Type Care Provider Facility Start: 02-08-2025 End: 02-08-2025 ambulatory NON STAFF [facility] Work Phone: Start: 02-08-2025 End: 02-08-2025 Patient encounter procedure Emory Adame DO [facility] [place] Work Phone: Start: 12-17-2024 End: 12-19-2024 ambulatory HÉCTOR [facility] Start: 12-17-2024 End: 12-19-2024 Subsequent hospital visit by physician Héctor Turner MD Work Phone: [facility]-Invasive Card[facility] Comment on above: Abnormal EKG; RBBB; History of [place] (myocardial infarction); Tobacco abuse counseling Start: 05-31-2024 ambulatory KARLA CLARK [facility] Start: 04-23-2024 End: 04-24-2024 Emergency department patient visit Sami Jasso MD Work Phone: [facility] ED Comment on above: Transportation unava ilable (Primary Dx) Start: 04-23-2024 End: 04-23-2024 Emergency department patient visit Alberta Medeiros MD Work Phone: [facility] ED Comment on above: Stroke-like symptom (Primary [...] an PT screening there at [facility]; she replied she is going to [...] Not Available Start: 02-18-2024 End: 02-18-2024 ambulatory VALDEMARSUKUMAR MATAETT Not Available Start: 02-18-2024 End: 02-18-2024 Office outpatient new 45 minutes Lucy Gilbert DO Work Phone: [facility] [employer] [facility] Comment on above: Gait instability (Pr imary Dx); Tardive dyskinesia; Psychiatric disturbance; [place] use Start: 02-18-2024 End: 02-18-2024 Bamboo flowsheet Lucy Gilbert DO Work Phone: [employer] [facility] Start: 02-18-2024 End: 02-18-2024 Bamboo flowsheet Lucy Gilbert DO Work Phone: [employer] [facility] Start: 02-11-2024 ambulatory Karla Clark Facility :[facility] Start: 01-27-2024 End: 01-27-2024 General Karla Clark MINUTE CLERK FOR [employer] Work Phone: [facility] Work Phone: Start: 01-27-2024 End: 01-27-2024 General Karla Clark MINUTE CLERK [employer] Work Phone: [facility] Work Phone: Start: 01-27-2024 End: 01-27-2024 FQHC visit, estab pt Vida Culp MINUTE CLERK FOR [employer]FF[employer] Work Phone: [facility] Work Phone: Start: 12-18-2023 Non-patient / Non-visit RODNEY Clark Work Phone: [facility] Work Phone: Start: 12-16-2023 End: 12-24-2023 Evaluation and management of inpatient RODNEY Clark Work Phone: [facility] Work Phone: Start: 11-26-2023 Registered Recurring SCRAP SEPARATOR Gary Clark Work Phone: [facility] Start: 11-18-2023 End: 11-18-2023 ambulatory ALANNAH JAMES Not Available Start: 10-04-2023 End: 10-04-2023 FQHC visit, estab pt Karla Clark MINUTE CLERK [employer] Work Phone: [facility] Work Phone: Start: 10-04-2023 End: 10-04-2023 General Karla Clark MINUTE CLERK FOR [employer] Work Phone: [facility] Work Phone: Start: 10-04-2023 End: 10-04-2023 Patient encounter procedure Karla Clark MINUTE CLERK [employer] Work Phone: [facility] Work Phone: Start: 09-27-2023 End: 09-27-2023 ambulatory YANDEL DANIEL Facility:[facility] Start: 09-27-2023 End: 09-27-2023 Patient encounter procedure Yandel Daniel MD Work Phone: Otolaryngology Comment on above: Nontoxic multinodula r goiter (Primary Dx); Thyroid nodule Start: 09-18-2023 End: 09-18-2023 ambulatory ALANNAH Melissa JAMES Not Available Start: 08-28-2023 End: 08-28-2023 ambulatory ALANNAH JAMES Not Available Start: 08-20-2023 End: 08-20-2023 Admission to same day surgery center [facility] [place] Start: 08-20-2023 End: 08-20-[address] [facility] Work Phone: Start: 08-16-2023 Non-patient / Non-visit [facility] Work Phone: Start: 08-15-2023 End: 08-20-2023 Evaluation and management of inpatient [facility] Work Phone: Start: 08-14-2023 End: 08-14-2023 ambulatory ALANNAH W JAILYN Not Available Start: 08-14-2023 End: 08-14-2023 ambulatory JOHAN HOWELL Not Available Start: 08-09-2023 Telephone encounter Yandel mccollum MD Work Phone: [facility] Comment on above: Patient Question Start: 07-16-2023 [...] Not Available Start: 06-28-2023 End: 06-28-2023 ambulatory [facility] Facility:[facility] Start: 06-18-2023 End: 06-22-2023 ambulatory [facility] Facility:[facility] Start: 05-30-2023 End: 05-31-2023 ambulatory [facility] Facility:[facility] Start: 05-30-2023 End: 05-30-2023 ambulatory [facility] Start: 05-30-2023 Encounter for other preprocedural examination [facility] Start: 05-22-2023 End: 05-22-2023 Patient encounter procedure Karla Clark CNP Work Phone: [facility] Work Phone: Start: 05-22-2023 End: 05-22-2023 FQHC visit, estab pt Karla Clark MINUTE CLERK [employer] Work Phone: [facility] Work Phone: Start: 05-22-2023 End: 05-22-2023 General Karla Clark CNP Work Phone: [facility] Work Phone: Start: 04-11-2023 End: 04-12-2023 ambulatory YANDEL DANIEL Facility:[facility] Start: 03-26-2023 End: 03-28-2023 Evaluation and management of inpatient RODNEY Clark Work Phone: [facility] Work Phone: Start: 03-26-2023 End: 03-28-2023 observation encounter RODNEY Clark Work Phone: [facility] Work Phone: Start: 03-11-2023 End: 03-15-2023 Evaluation and management of inpatient RODNEY Clark Work Phone: [facility] Work Phone: Start: 03-11-2023 End: 03-11-2023 Departed Referred RODNEY Clark Work Phone: [facility] [place] Work Phone: Start: 12-12-2022 Office outpatient vi sit 15 minutes [facility] Start: 12-12-2022 End: 12-12-2022 ambulatory RODNEY Clark Work Phone: [facility] Work Phone: Start: 12-12-2022 End: 12-12-2022 Patient encounter procedure RODNEY Clark Work Phone: [facility] Start: 11-19-2022 End: 02-28-2023 General Karla Clark MINUTE CLERK FOR [employer] Work Phone: [facility] Work Phone: Start: 11-19-2022 End: 02-28-2023 FQHC visit, estab pt Karla Clark MINUTE CLERK [employer] Work Phone: [facility] Work Phone: Start: 10-31-2022 Postop follow up vis it related to original px Emory Adame [facility] Start: 10-31-2022 End: 10-31-2022 ambulatory PHYSICIAN NO [facility] Work Phone: Start: 10-31-2022 End: 10-31-2022 Patient encounter procedure PHYSICIAN NO [facility] Start: 10-31-2022 End: 10-31-2022 ambulatory REKHA GALICIA Facility: Start: 2022 End: 2022 ambulatory Emory Adame Other [employer] Other Start: 2022 Telephone encounter [facility]AYL[facility] Start: 10-23-2022 Registered Recurring RODNEY Clark Work Phone: [facility] Start: 10-05-2022 End: 10-05-2022 ambulatory Emory Adame Other [employer] Other Start: 10-05-2022 Telephone encounter [facility] Start: 10-03-2022 Postop follow up vis it related to original px Emory Adame [facility] Start: 10-03-2022 End: 10-03-2022 ambulatory PHYSICIAN NO [facility] [employer] Other Start: 10-03-2022 End: 10-03-2022 Patient encounter procedure PHYSICIAN NO [facility] Start: 09-18-2022 End: 09-18-2022 FQHC visit, estab pt Karla Clark MINUTE CLERK FOR [employer] Work Phone: [facility] Work Phone: Start: 09-18-2022 End: 09-18-2022 General Karla Clark MINUTE CLERK FOR BAS[employer]FFIC Work Phone: [facility] Work Phone: Start: 09-13-2022 End: 09-14-2022 Admission to same day surgery center PHYSICIAN NO [facility] [place] Start: 09-13-2022 End: 09-14-2022 ambulatory PHYSICIAN NO [facility] Work Phone: Start: 09-11-2022 Telephone encounter [facility] Start: 09-11-2022 End: 09-11-2022 ambulatory SCRAP SEPARATOR Karla Blackburn Amber Work Phone: [facility] Work Phone: Start: 09-11-2022 End: 09-11-2022 Patient encounter procedure SCRAP SEPARATORStacy Clark Work Phone: [facility]-Pre-Surgical Testing Work Phone: Start: 09-10-2022 FQHC visit new patient [facility] Start: 09-10-2022 End: 09-10-2022 ambulatory Emory Adame Other [employer] Other Start: 09-10-2022 End: 09-10-2022 Patient encounter procedure DO Emory Adame Work Phone: [facility] Start: 09-06-2022 End: 09-06-2022 ambulatory MS KARLA CLARK Facility: Start: 08-27-2022 End: 08-27-2022 General Carolin ATWOOD Work Phone: [facility] Work Phone: Start: 08-27-2022 End: 08-27-2022 Adult health examination Karla Clark MINUTE CLERK FOR [employer]FF[employer] Work Phone: [facility] Work Phone: Start: 08-27-2022 End: 08-27-2022 FQHC visit, estab pt Karla Clark MINUTE CLERK FOR BAS[employer]FFIC Work Phone: [facility] Work Phone: Start: 08-22-2022 End: 08-22-[address] DOCTOR CHAVEZ Facility:[facility] Start: 08-16-2022 End: 08-16-2022 Subsequent hospital visit by physician Karla Clark APRN - MINUTE CLERK FOR [employer] TRAFFIC Work Phone: [facility] Laboratory Comment on above: Cutaneous candidiasi s; Screening for malignant neoplasm of cervix Start: 08-03-2022 End: 08-03-2022 ambulatory REKHA AB Facility:[facility] Start: 06-18-2022 End: 06-18-2022 FQHC visit, estab pt Karla Clark MINUTE CLERK FOR [employer]FFIC Work Phone: [facility] Work Phone: Start: 03-22-2022 End: 03-22-2022 FQHC visit, estab pt Yin Feliz [facility] Work Phone: [facility] Work Phone: Start: 03-20-2022 End: 03-20-2022 FQHC visit, estab pt Yin Feliz [facility] Work Phone: [facility] Work Phone: Start: 03-06-2022 End: 03-06-2022 Preoperative state [facility] Room [facility] Echocardiograph y Start: 03-06-2022 End: 03-06-2022 Subsequent hospital visit by physician [facility] Echo Room [facility] Echocardiography Comment on above: Pre-operative cleara nce; Abnormal EKG; History of [place] (myocardial infarction) Start: 12-20-2021 End: 12-20-2021 FQHC visit, estab pt Karla Clark MINUTE CLERK FOR BAS[employer] TRAFFIC Work Phone: [facility] Work Phone: Start: 11-03-2021 End: 11-03-2021 FQHC visit, estab pt Yin Feliz [facility] Work Phone: [facility] Work Phone: Start: 11-03-2021 End: 11-03-2021 FQHC visit, estab pt Yin Feliz [facility] Work Phone: [facility] Work Phone: Start: 09-28-2021 End: 11-03-2021 Pre-admission assessment Deepti Britt [facility] Start: 08-01-2021 End: 08-01-2021 Patient encounter status Karla Clark SCRAP SEPARATOR - MINUTE CLERK FOR BASIC TRAFFIC Work Phone: [facility] Start: 08-01-2021 End: 08-03-2021 Subsequent hospital visit by physician Frantz Mri Scanner [facility] Laboratory Comment on above: Pre-procedure lab ex am Breast lump on right side at 4 o'clock position Start: 07-28-2021 End: 07-28-2021 FQHC visit, estab pt Karla Clark MINUTE CLERK FOR [employer]FF[employer] Work Phone: [facility] Work Phone: Start: 05-08-2021 End: 05-08-2021 Adult health examination Karla Amber MINUTE CLERK FOR BAS[employer]FFIC Work Phone: [facility] Work Phone: Start: 05-08-2021 End: 05-08-2021 FQHC visit, estab pt Karlajulius Clark MINUTE CLERK FOR BASIC [employer]FFIC Work Phone: [facility] Work Phone: Start: 11-11-2020 End: 11-13-2020 Subsequent hospital visit by physician Frantz Gen Radiologist [facility] Mammography Comment on above: History of breast bi opsy Start: 07-21-2020 End: 07-21-2020 Subsequent hospital visit by physician Karla RANDOLPH Laboratory Start: 07-14-2020 End: 07-14-2020 Subsequent hospital visit by physician Karla Clark [facility] Start: 07-14-2020 End: 07-14-2020 Subsequent hospital visit by physician Karla Clark [facility] Start: 07-08-2020 End: 07-08-2020 Subsequent [facility] Start: 06-30-2020 End: 07-02-2020 Subsequent hospital visit by physician Frantz Lab Drawing Room [facility] Laboratory Comment on above: Arrived Hyperprolactinemia ( HCC) Start: 06-17-2020 End: 06-17-2020 Established patient Karla Clark Work Phone: [facility] Work Phone: Start: 06-08-2020 End: 06-10-2020 Subsequent hospital visit by physician Frantz Gen Radiologist [facility] Ultrasound Comment on above: Abnormal ultrasound of breast; Lesion of breast Start: 06-08-2020 End: 06-10-2020 Subsequent hospital visit by physician Frantz Mammography Room [facility] Mammography Comment on above: Abnormal mammogram Start: 06-06-2020 End: 06-06-2020 Established patient Karla Clark Work Phone: [facility] Work Phone: Start: 06-06-2020 End: 06-06-2020 Subsequent hospital visit by physician Karla RANDOLPH Laboratory Start: 05-06-2020 End: 05-06-2020 Patient encounter procedure Karla Clark Work Phone: [facility] Work Phone: Start: 04-04-2020 End: 04-06-2020 Subsequent hospital visit by physician Frantz Ultrasound Room [facility] Ultrasound Comment on above: Abnormal mammogram Start: 03-31-2020 End: 03-31-2020 Subsequent hospital visit by physician Karla [facility] Start: 03-31-2020 End: 03-31-2020 Established patient Karla Clark Work Phone: [facility] Work Phone: Start: 03-14-2020 End: 03-14-2020 Nursing evaluation of patient and report Karla Amber Work Phone: [facility] Work Phone: Start: 03-10-2020 End: 03-10-2020 Subsequent hospital visit by physician Karla [facility] Start: 03-04-2020 End: 03-04-2020 Patient encounter procedure Karla Clark Work Phone: [facility] Work Phone: Start: 02-26-2020 End: 02-26-2020 Patient encounter procedure Karla Clark Work Phone: [facility] Work Phone: Start: 02-26-2020 End: 02-26-2020 Established patient Karla Clark Work Phone: [facility] Work Phone: Start: 11-19-2019 End: 11-19-2019 Patient encounter procedure Carolin Oneill Work Phone: [facility] Work Phone: Start: 11-19-2019 End: 11-19-2019 Telemedicine consultation with patient Karla Clark Work Phone: [facility] Work Phone: Start: 08-31-2019 End: 08-31-2019 Telemedicine consultation with patient Karla Clark Work Phone: [facility] Work Phone: Start: 08-03-2019 End: 08-03-2019 Subsequent hospital visit by physician Karla KEYZ Laboratory Start: 07-23-2019 End: 07-23-2019 Established patient Karla Clark Work Phone: [facility] Work Phone: Start: 06-05-2019 End: 06-05-2019 Patient encounter procedure Karla Amber Work Phone: [facility] Work Phone: Start: 05-28-2019 End: 05-28-2019 Patient encounter procedure Telma Connor Work Phone: [facility] Work Phone: Start: 04-23-2019 End: 04-23-2019 ambulatory Karla Amber Work Phone: [facility] Work Phone: Start: 04-15-2019 End: 04-15-2019 Established patient Brandy Kelley Work Phone: [facility] Work Phone: Start: 04-10-2019 End: 04-12-2019 Subsequent hospital visit by physician Frantz Gen Radiologist [facility] Ultrasound Comment on above: Abnormal mammogram o f left breast Start: 03-11-2019 End: 03-13-2019 Subsequent hospital visit by physician Frantz Ultrasound Room [facility] Ultrasound Comment on above: Duct ectasia of jr st, left Start: 03-05-2019 End: 03-05-2019 Established patient Karla Clark Work Phone: [facility] Work Phone: Start: 02-16-2019 End: 02-18-2019 Subsequent hospital visit by physician Frantz Xr Dr Room 2 [facility] Radiology Comment on above: Right foot pain Start: 12-22-2018 End: 12-22-2018 Established patient Karla Clark Work Phone: [facility] Work Phone: Start: 11-11-2018 End: 11-11-2018 Patient encounter procedure Karla Clark Work Phone: [facility] Work Phone: Start: 11-06-2018 End: 11-06-2018 Established patient Karla Clark Work Phone: [facility] Work Phone: Start: 09-11-2018 End: 09-11-2018 Established patient Karla Clark Work Phone: [facility] Work Phone: Start: 09-11-2018 End: 09-11-2018 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 Karla Clark CNP Work Phone: [facility] Work Phone: Start: 09-04-2018 End: 09-04-2018 Established patient Karla Clark Work Phone: [facility] Work Phone: Start: 09-04-2018 End: 09-04-2018 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 Karla Clark MINUTE CLERK FOR BASIC TRAFFIC Work Phone: [facility] Work Phone: Start: 07-31-2018 End: 07-31-2018 Established patient Karla Clark Work Phone: [facility] Work Phone: Start: 05-08-2018 Office outpatient vi sit 15 minutes Karla Clark Other [facility] Start: 05-08-2018 End: 05-08-2018 Patient encounter procedure Karla Clark MINUTE CLERK FOR BASIC TRAFFIC Work Phone: [facility] Work Phone: Start: 03-20-2018 End: 03-20-2018 Patient encounter procedure Conversion Provider Work Phone: [facility] Work Phone: Start: 03-20-2018 Office outpatient vi sit 5 minutes Karla Clark Other [facility] Start: 02-13-2018 Medical Karla Clark Other [facility] Start: 02-13-2018 End: 02-13-2018 Office outpatient visit 5 minutes Karla Clark Other [facility] Start: 02-13-2018 Evaluation and manag ement of established outpatient in office or other outpatient facility Karla Clark [facility] Start: 02-11-2018 Medical Karla Clrak Other [facility] Start: 02-11-2018 End: 02-11-2018 Office outpatient visit 5 minutes Karla Amber Other [facility] Start: 02-11-2018 End: 02-11-2018 Patient encounter procedure Karla Clark CNP Work Phone: [facility] Work Phone: Start: 12-19-2017 End: 12-19-2017 Office outpatient visit 15 minutes Karla Clark Other [facility] Start: 12-19-2017 End: 12-19-2017 Patient encounter procedure Karla Clark CNP Work Phone: [facility] Work Phone: Start: 10-08-2017 End: 10-08-2017 Patient encounter procedure Karla Clark CNP Work Phone: [facility] Work Phone: Start: 10-08-2017 End: 10-08-2017 Office outpatient visit 15 minutes Karla Clark Other [facility] Start: 09-17-2017 End: 09-17-2017 Patient encounter procedure Karla Clark CNP Work Phone: [facility] Work Phone: Start: 09-17-2017 Laboratory examinati on, unspecified Karla Clark [facility] Start: 09-17-2017 Physical examination a[facility]rla [facility] Start: 09-17-2017 Comprehensive metabo lic panel Karla Clark [facility] Start: 09-17-2017 End: 09-17-2017 Office outpatient visit 15 minutes Karla Clark Other [facility] Start: 07-30-2017 End: 07-30-2017 Periodic preventive med est patient 40-64yrs Karla Clark Other [facility] Start: 05-14-2017 End: 05-14-2017 Office outpatient visit 15 minutes Karla Clark Other [facility] Start: 04-18-2017 End: 04-18-2017 Medical Karla Clark Other [facility] Start: 03-07-2017 End: 03-07-2017 Evaluation and management of established outpatient in office or other outpatient facility Karla Clark [facility] Start: 03-07-2017 End: 03-07-2017 TB Read Karla Clark Other [facility] Start: 03-05-2017 Physical examination Karla Quinones [facility] Start: 03-05-2017 End: 03-05-2017 Office outpatient visit 15 minutes Karla Clark Other [facility] Start: 03-05-2017 Tobacco use cessatio n intensive >10 minutes Karlajulius Clark [facility] Start: 01-01-2017 Ct head/brain w/o & w/contrast material [facility] Start: 01-01-2017 End: 01-01-2017 Office outpatient visit 15 minutes Karla Clark Other [facility] Start: 12-06-2016 End: 12-06-2016 Office outpatient visit 15 minutes Karla Clark Other [facility] Start: 11-06-2016 End: 11-06-2016 Office outpatient visit 15 minutes Karla Clark Other [facility] Start: 11-06-2016 Urinalysis qual/semi quant except immunoassays [facility] Start: 09-27-2016 End: 09-27-2016 Office outpatient visit 15 minutes Karla Clark Other [facility] Start: 08-21-2016 End: 08-21-2016 Office outpatient visit 15 minutes Karla Clark Other [facility] Start: 06-26-2016 End: 06-26-2016 Office outpatient visit 15 minutes Karla Amber Other [facility] Start: 06-26-2016 Tobacco use cessatio n intermediate 3-10 minutes Karla Amber [facility] Start: 06-12-2016 End: 06-12-2016 Office outpatient visit 15 minutes Karlajulius Clark Other [facility] Start: 05-22-2016 End: 05-22-2016 Office outpatient visit 25 minutes Karla Amber Other [facility] Start: 04-10-2016 End: 04-10-2016 Office outpatient visit 15 minutes Karla Amber Other [facility] Start: 03-20-2016 Tobacco use cessatio n intermediate 3-10 minutes [facility] Start: 03-20-2016 End: 03-20-2016 Office outpatient visit 15 minutes Karlajulius Clark Other [facility] Start: 03-09-2016 Evaluation and manag ement of established outpatient in office or other outpatient facility [facility] Start: 03-09-2016 End: 03-09-2016 Office outpatient visit 5 minutes Karlajulius Clark Other [facility] Start: 03-06-2016 End: 03-06-2016 Office outpatient visit 15 minutes Karla Amber Other [facility] Start: 02-21-2016 End: 02-21-2016 Office outpatient visit 15 minutes Karla Amber Other [facility] Start: 01-12-2016 Tobacco use cessatio n intermediate 3-10 minutes [facility] Start: 01-11-2016 End: 01-11-2016 Office outpatient visit 15 minutes Karla Amber Other [facility] Start: 12-08-2015 End: 12-08-2015 Office outpatient visit 15 minutes Karla Amber Other [facility] Start: 10-25-2015 Culture bct isol&prs mptv id isolate ea urine [facility] Start: 10-25-2015 End: 10-25-2015 Office outpatient visit 15 minutes Karla Clark Other [facility] Start: 09-22-2015 End: 09-22-2015 Office outpatient visit 15 minutes Karlajulius Clark Other [facility] Start: 09-08-2015 Iadna chlamydia trachomatis amplified probe tq [facility] Start: 09-08-2015 End: 09-08-2015 Office outpatient visit 15 minutes Karla Clark Other [facility] Procedures Date Procedure Procedure Detail Performing Clinician Start: 12-17-2024 Echo tthrc r-t 2d w/wom-mode compl spec&colr d Héctor Turner MD Work Phone: Start: 04-23-2024 Urinalysis microscopic only Jesus Mims MD Work Phone: Start: 04-23-2024 Urnls dip stick/tablet rgnt auto w/o microscopy Jseus Mims MD Work Phone: Start: 04-23-2024 Mri [...] assmt w/score & docd/stand instrument Vida Culp [employer] Work Phone: Start: 01-27-2024 Current tobacco non-user cad cap copd pv dm Vida Culp [employer] Work Phone: Start: 01-27-2024 Depression screening Visit For: Screening Exam Depression Vida Culp [employer] Work Phone: Start: 01-27-2024 FQHC visit, estab pt Vida Culp [employer] Work Phone: Start: 01-27-2024 Most recent diastolic blood pressure < 80 mm hg Vida Culp [employer] Work Phone: Start: 01-27-2024 Most recent systolic blood press 130-139mm hg Vidaashley Culp [employer] Work Phone: Start: 10-04-2023 Behav assmt w/score & docd/stand instrument Karla Clark [employer] Work Phone: Start: 10-04-2023 Current tobacco smoker Karla Clark [employer] Work Phone: Start: 10-04-2023 FQHC visit, estab pt Karla Clark [employer] Work Phone: Start: 10-04-2023 Most recent diastolic blood pressure 80-89 mm hg Karla Clark [employer] Work Phone: Start: 10-04-2023 Most recent systolic [...] Karla Clark CNP Work Phone: Start: 05-22-2023 FQHC visit, estab pt Karla Clark CNP Work Phone: Start: 05-22-2023 Most recent diastolic blood pressure 80-89 mm hg Karla Clark CNP Work Phone: Start: 05-22-2023 Most recent systolic blood press 130-139mm hg Karla Clark CNP Work Phone: Start: 05-22-2023 Pt scrnd tobacco use rcvd tobacco cessation talk Karla Clark CNP Work Phone: Start: 03-26-2023 CT of abdomen and pelvis without contrast SCRAP SEPARATORStacy Clark Work Phone: Start: 03-14-2023 Computed tomography of abdomen and pelvis with contrast RODNEY Clark Work Phone: Start: 03-12-2023 Urine culture SCRAP SEPARATOR Karla Clark Work Phone: Start: 02-28-2023 Asthma Control Test/Baseline Evaluation Lina Penix [employer] Work Phone: Start: 02-28-2023 Current tobacco smoker Lina Penix [employer] Work Phone: Start: 02-28-2023 FQHC visit, estab pt Lina Penix [employer] Work Phone: Start: 02-28-2023 Most recent diastolic blood pressure < 80 mm hg Lina Penix [employer] Work Phone: Start: 02-28-2023 Most recent systolic blood pressure <130 mm hg Aaron Whitaker [employer] Work Phone: Start: 02-28-2023 Pt scrnd tobacco use rcvd tobacco cessation talk Aaron Whitaker [employer] Work Phone: Start: 02-28-2023 Screening for malignant neoplasm of breast Visit For: Screening Exam Malignant Neoplasm Breast Aaron Whitaker [employer]ERK [employer] Work Phone: Start: 12-12-2022 Plain X-ray of right shoulder SCRAP SEPARATOR Karla Clark Work Phone: Start: 11-19-2022 Current tobacco smoker Karla Clark CNP Work Phone: Start: 11-19-2022 FQHC visit, estab pt Karla Clark CNP Work Phone: Start: 11-19-2022 Most recent diastolic blood pressure < 80 mm hg Karla Clark CNP Work Phone: Start: 11-19-2022 Most recent systolic blood press 130-139mm hg Karla Clark CNP Work Phone: Start: 10-31-2022 Plain X-ray of right shoulder PHYSICIAN NO FAMILY Start: 10-03-2022 Plain X-ray of right shoulder PHYSICIAN NO FAMILY Start: 09-21-2022 Surgical procedure Karla Clark CNP Work Phone: Start: 09-18-2022 Current tobacco smoker Karla Clark CNP Work Phone: Start: 09-18-2022 FQHC visit, estab pt Karla Clark CNP Work Phone: Start: 09-18-2022 Most recent diastolic blood pressure < 80 mm hg Karla Clark CNP Work Phone: Start: 09-18-2022 Most recent systolic blood pres>/equal 140 mm hg Karla Clark [employer] Work Phone: Start: 09-18-2022 Pt scrnd tobacco [...] Karla Clark CNP Work Phone: Start: 08-27-2022 FQHC visit, estab [...] FQHC visit, MH estab pt Yin alexander LP[facility]-S Work Phone: Start: 03-20-2022 Most recent diastolic blood pressure 80-89 mm hg Karla Clark CNP Work Phone: Start: 03-20-2022 Most recent systolic blood pressure <130 mm hg Karla Clark CNP Work Phone: Start: 03-20-2022 Psychotherapy w/patient 30 minutes Yin Feliz [facility] Work Phone: Start: 12-20-2021 Antibody hiv-1&hiv-2 single [...] 11-03-2021 Psychotherapy w/patient 30 minutes Yin Feliz [facility] Work Phone: Start: 08-10-2021 Microscopic observation [Identifier] in Cervix by Cyto stain [facility] Room Start: 08-01-2021 Mri breast without&with contrast w/cad bilateral She Spencer SCRAP SEPARATOR - CN Work Phone: Start: 08-01-2021 Creatinine blood She Spencer SCRAP SEPARATOR - CN Work Phone: Start: 07-28-2021 Pt scrnd tobacco use rcvd tobacco cessation talk Karla Clark CNP Work Phone: Start: 05-08-2021 Blood occult fecal hgb deter ia qual feces 1-3 Karla Clark CNP Work Phone: Start: 05-08-2021 Most recent diastolic blood pressure < 80 mm hg Karla Clark CNP Work Phone: Start: 05-08-2021 Most recent systolic blood press 130-139mm hg Karla Clark [employer] Work Phone: Start: 11-25-2020 Lipid 1996 panel - Serum or Plasma Yandel Daniel MD Work Phone: Start: 11-11-2020 End: 11-11-2020 Diagnostic mammography computer-aided detcj bi She Jacobsen Spencer SCRAP SEPARATOR - CNM Work Phone: Start: 07-21-2020 Drug [...] Phone: Start: 06-06-2020 Assay of prolactin Rekha Galicia Work Phone: Start: 05-06-2020 Current tobacco smoker [...] 04-23-2019 Diast bp <80 mm hg Karla Amber Work Phone: Start: 04-23-2019 Hg a1c level lt 7.0% Karla Clark Work Phone: Start: 04-23-2019 Syst bp lt 130 mm hg Karlajulius Clark Work Phone: Start: 04-15-2019 Diast bp [...] risk assmt score doc stnd instrm Karla Amber Work Phone: Start: 03-05-2019 Removal impacted cerumen instrumentation unilat Karla Amber Work Phone: Start: 02-16-2019 Radex foot complete minimum 3 views Kirit Garsia Work Phone: Start: 11-12-2018 Hysterectomy Karla Amber Start: 11-11-2018 Hysterectomy Karla Amber Start: 11-11-2018 [...] Phone: Start: 07-31-2018 ABNORMAL ELECTROCARDIOGRAM Karla Clark [employer] Work Phone: Start: 07-31-2018 ASTHMA Karla Clark [employer] Work Phone: Start: 07-31-2018 BIPOLAR DISORDER NOS Karla Clark [employer] Work Phone: Start: 07-31-2018 CARDIOVASCULAR DISORDERS Karla Clark CN P Work Phone: Start: 07-31-2018 DEPRESSION Karla Clark [employer] Work Phone: Start: 07-31-2018 PSYCHIATRIC DISORDERS Karla Clark [employer] Work Phone: Start: 07-31-2018 RESPIRATORY DISORDERS Karla Clark [employer] Work Phone: Start: 07-31-2018 Urnls dip stick/tablet [...] Karla Clark Start: 09-17-2017 Lipid panel Karla Amber Start: 09-17-2017 End: 09-17-2017 Iaadiadoo streptococcus group [...] (2 - Td or Tdap) [facility] [employer] Start: 12-28-2027 DTaP/Tdap/Td vaccine (3 - Td or Tdap) DTaP/Tdap/Td vaccine (3 - Td or Tdap) [facility] [employer] Start: 12-28-2027 DTaP/Tdap/Td vaccine (3 - Td) DTaP/Tdap/Td vaccine (3 - Td) [facility] [place] Start: 12-28-2027 Urine microalbumin profile DTaP,Tdap,Td Vaccine (3 - Td or Tdap) [facility] Start: 06-20-2026 Diabetes Screening Diabetes Screening [facility] Start: 11-25-2025 [facility]id panel [facility] Start: 07-14-2025 Lipid panel [facility] [employer] Start: 07-08-2025 Lipid panel Lipid screen [facility] [employer] Work Phone: Start: 06-01-2025 Screening for malignant neoplasm of breast Breast cancer screen [facility] [employer] Start: 04-23-2025 GFR test (Diabetes, CKD 3-4, OR last GFR 15-59) GFR test (Diabetes, CKD 3-4, OR last GFR 15-59) [facility] [employer] Start: 03-10-2025 Lipid panel Lipid screen [place], [place] Start: 02-22-2025 End: 02-22-2025 Patient encounter procedure 02/22/2025 2:30 PM EDT Office Visit [facility] [employer] [address], [address] [place] [address] Paramjit Olvera MD [address] [facility] [address] [place], [place] [id number] 3 month follow up [facility] Comment on above: 3 month follow up Start: 01-01-2025 Influenza vaccination Flu vaccine (#1) [facility] Start: 08-25-2024 COVID-19 Vaccine ( season) COVID-19 Vaccine ( season) [facility] Start: 08-18-2024 End: 08-18-2024 Patient encounter procedure 08/18/2024 1:00 PM EDT Office Visit [facility] [address] [place] [id number] Musa Lua, [address] [place] [address] [facility] Start: 08-10-2024 Screening for malignant neoplasm of cervix [facility] Start: 08-03-2024 End: 08-03-2024 Patient encounter procedure 08/03/2024 1:20 PM EST Office Visit [facility] Part of [address] [id number] Héctor Turner MD [address] [place] [address] One year follow up [facility] Part of [facility] Comment on above: One year follow up Start: 08-02-2024 Lipid panel Lipid screen [facility] [place], [place] Start: 07-17-2024 [facility] Start: 06-27-2024 COVID-19 Vaccine ( season) COVID-19 Vaccine ( season) [facility] Start: 06-21-2024 Creatinine measurement Serum Creatinine [facility] Start: 06-20-2024 Complete blood count Hemoglobin/Hematocrit [facility] Start: 06-03-2024 Annual Wellness Visit (Medicare Advantage) Annual Wellness Visit (Medicare Advantage) [facility] Juan Pablo [facility] Start: 05-30-2024 BP Controlled (<130/80) BP Controlled (<130/80) [facility] Start: 04-06-2024 FQHC visit, estab pt Medical Established Patient [facility] Work Phone: Start: 04-06-2024 End: 04-06-2024 Patient encounter procedure 04/06/2024 1:00 PM EST Office Visit [facility] [address] [place] [phone] Lulu Morocho NP [address] [place] [address] [facility] Start: 03-19-2024 End: 03-19-2024 Patient encounter procedure 03/19/2024 2:30 PM EDT Office Visit [facility] [address] [place] [address] Dakota Mack MD [address] [place] [address] [facility] Start: 02-26-2024 End: 02-26-2024 ambulatory 02/26/2024 2:00 PM EDT Evaluation [facility] [address] [place] [address] Carito Maloney, PT [facility] Start: 02-25-2024 End: 02-25-2024 Patient encounter procedure [facility] Comment on above: Arrived Start: 02-18-2024 End: 02-17-2025 EMG 2 Extremities EMG 2 Extremities Neurology Routine Gait instability Expected: 02/18/2024, Expires: 02/17/2025 [facility] Work Phone: Comment on above: Expected: 02/18/2024, Expires: Start: 02-02-2024 Influenza vaccination [facility] Start: 01-27-2024 Neurology Health [facility] Work Phone: Comment on above: Note: Please make a referral to: Start: 01-27-2024 End: 01-27-2024 Patient education based on identified need [facility] Start: 01-02-2024 Influenza vaccination Flu vaccine (#1) Bon Juan Pablo [facility] Start: 12-24-2023 [facility] Start: 11-15-2023 Lipid screen Lipid screen [facility] [place] Start: 11-15-2023 Physical Therapy [facility] Work Phone: Comment on above: Note: Please make a referral to: Start: 11-03-2023 Cologuard [facility] Start: 10-04-2023 FQHC visit, estab pt Medical Established Patient [facility] Work Phone: Start: 10-04-2023 End: 10-04-2023 Patient education based on identified need [facility] Start: 08-27-2023 End: 08-27-2023 Patient encounter procedure 08/27/2023 Office Visit Obstetrics and Gynecology She Spencer, SCRAP SEPARATOR - CNM [address] [facility] [address] [place] [address] [facility] Part of [facility] Start: 08-20-2023 Excision of lesion of cheek OR Cheek Lesion Exc W/Flap Recon (Not Applicable) [facility] Start: 08-20-2023 End: 08-20-2023 [facility] Start: 08-20-2023 [facility] Start: 08-15-2023 Hospital admission [facility] Start: 08-15-2023 [facility] Start: 07-16-2023 End: 07-16-2023 Patient encounter procedure 07/16/2023 1:20 PM EST Office Visit [facility] [address] [place] [address] Dakota Mack MD [address] [place] [address] Arrived [facility] Comment on above: Arrived Start: 07-11-2023 End: 07-11-2023 Patient encounter procedure 07/11/2023 Office Visit Cardiology Juju Irby PA-C [address] [place] [address] [facility] Part of [facility] Start: 06-03-2023 Advance Directive Discussion Advance Directive Discussion [facility] Start: 06-03-2023 Annual Wellness Visit (Medicare Advantage) Annual Wellness Visit (Medicare Advantage) Charly Almeida [facility] Start: 06-03-2023 Behavioral Health Screening Behavioral Health Screening [facility] Start: 06-03-2023 Depression Assessment Depression Assessment [facility] Start: 05-23-2023 FQHC visit, estab pt Medical Established Patient [facility] Work Phone: Start: 05-22-2023 Dermatology [facility] Work Phone: Comment on above: Note: Please make a referral [facility]: [facility] Start: 05-22-2023 End: 05-22-2023 Patient education based on identified need [facility] Start: 04-20-2023 Urinalysis [facility] Start: 03-30-2023 Mammography Mammogram - Screening ([id number]) [facility] Start: 03-28-2023 FQHC visit, estab pt Medical Established Patient [facility] Work Phone: Start: 03-28-2023 [facility] Start: 03-26-2023 Urine culture Urine Culture [facility] Start: 03-26-2023 Referral to clinical top steep tender [facility] Start: 03-26-2023 Hospital admission [facility] Start: 03-15-2023 [facility] Start: 03-13-2023 Referral to clinical top steep tender [facility] Start: 03-12-2023 Hospital admission [facility] Start: 03-12-2023 [facility] Start: 03-01-2023 FQHC visit, estab pt Medical Established Patient [facility] Work Phone: Start: 02-28-2023 FQHC visit, estab pt Medical Established Patient [facility] Work Phone: Start: 02-28-2023 End: 02-28-2023 Patient education based on identified need [facility] Start: 02-01-2023 Covid-19 Vaccine () Covid-19 Vaccine () [facility] Start: 11-19-2022 End: 11-19-2022 Patient education based on identified need [facility] Start: 11-13-2022 FQHC visit, estab pt Medical Established Patient [facility] Work Phone: Start: 09-18-2022 FQHC visit, estab pt Medical Established Patient [facility] Work Phone: Start: 09-18-2022 End: 09-18-2022 Patient education based on identified need [facility] Start: 09-13-2022 [facility] Start: 09-01-2022 CBC W Auto Differential panel - Blood [facility] Start: 09-01-2022 Lipid 1996 panel - Serum or Plasma LIPID PROFILE [facility] Start: 08-27-2022 End: 08-27-2022 Patient education based on identified need [facility] Start: 08-27-2022 End: 08-27-2022 Provider instructions for treatment Intervention and counseling on cessation of tobacco use, 3-10 minutes Discussed medication and nicotine replacement for tobacco cessation [facility] Start: 08-16-2022 End: 08-16-2022 Patient encounter procedure 08/16/2022 Office Visit Obstetrics and Gynecology She Spencer, RODNEY - CNM [address] [place] [address] [facility] of [facility] Start: 07-04-2022 End: 07-04-2022 Patient encounter procedure 07/04/2022 Office Visit Cardiology Juju Irby PA-C [address] [place] [address] [facility] Start: 06-26-2022 FQHC visit, estab pt Medical Established Patient [facility] Work Phone: Start: 06-18-2022 End: 06-18-2022 Patient education based on identified need [facility] Start: 05-08-2022 Screening for malignant neoplasm of colon [facility] Start: 03-20-2022 End: 03-20-2022 Patient education based on identified need [facility] Start: 01-10-2022 Annual Wellness Visit (AWV) Annual Wellness Visit (AWV) [facility] Start: 01-01-2022 Influenza vaccination Flu vaccine (#1) [facility] Start: 12-20-2021 End: 12-20-2021 Patient education based on identified need [facility] Start: 12-15-2021 FQHC visit, estab pt Medical Established Patient [facility] Work Phone: Start: 11-11-2021 Screening for malignant neoplasm of breast [facility] Start: 11-03-2021 Cardiology [facility] Work Phone: Comment on above: Note: Please make a referral to: Start: 11-03-2021 End: 11-03-2021 Patient education based on identified need [facility] Start: 2021 Screening for osteoporosis Bone Density Screening [facility] Start: 10-10-2021 COVID-19 Vaccine (4 - Booster for Moderna series) COVID-19 Vaccine (4 - Booster for Moderna series) [facility] Start: 08-15-2021 End: 08-15-2021 Patient encounter procedure 08/15/2021 Office Visit Obstetrics and Gynecology She Spencer, RODNEY - CNAlexey [address] [place] [address] [phone] [facility] Start: 08-14-2021 CBC W Auto Differential panel - Blood [facility] Start: 08-10-2021 End: 08-10-2021 Patient encounter procedure 08/10/2021 Office Visit Obstetrics and Gynecology She Spencer, SCRAP SEPARATOR - CNM [address] [place] [address] [facility] of [facility] Start: 08-07-2021 COVID-19 Vaccine (4 - Booster for Moderna series) COVID-19 Vaccine (4 - Booster for Moderna series) [facility] Start: 07-28-2021 ENT [facility] Work Phone: Comment on above: Note: Please make a referral to: aliyah GUPTA Start: 07-28-2021 End: 07-28-2021 Patient education based on identified need [facility] Start: 07-28-2021 End: 07-28-2021 Provider instructions for treatment Intervention and counseling on cessation of tobacco use, 3-10 minutes Discussed medication and nicotine replacement for tobacco cessation [facility] Start: 07-03-2021 COVID-19 Vaccine (2 - Pfizer 3-dose series) COVID-19 Vaccine (2 - Pfizer 3-dose series) [facility] Start: 06-08-2021 Screening for malignant neoplasm of breast Breast cancer screen [place], [place] Start: 05-15-2021 CBC W Auto Differential panel - Blood [facility] Start: 05-15-2021 Lipid 1996 panel - Serum or Plasma LIPID PROFILE [facility] Start: 05-08-2021 End: 05-08-2021 Patient education based on identified need [facility] Start: 05-01-2021 End: 05-01-2021 Patient encounter procedure 05/01/2021 Office Visit Neurology Bhupinder Iniguez MD [address] [place] [address] [facility] Part of [facility] Start: 04-04-2021 Screening for malignant neoplasm of breast Breast cancer screen [place], [place] Start: 03-31-2021 Hemoglobin A1c measurement A1C test (Diabetic or Prediabetic) [facility] Start: 03-31-2021 Pneumococcal 65+ years Vaccine (2 - PPSV23 if available, else PCV20) Pneumococcal 65+ years Vaccine (2 - PPSV23 if available, else PCV20) [facility] Start: 03-31-2021 Pneumococcal 65+ years Vaccine (2 - PPSV23 or PCV20) Pneumococcal 65+ years Vaccine (2 - PPSV23 or PCV20) [facility] Start: 02-01-2021 Influenza vaccination Flu vaccine (#1) [facility] Start: 01-29-2021 Cervical cancer screen Cervical cancer screen [place], [place] Start: 01-29-2021 Screening for malignant neoplasm of cervix Cervical cancer screen [place], [place] Start: 10-17-2020 End: 10-17-2020 Office Visit 10/17/2020 Office Visit Neurology Bhupinder Iniguez MD [address] [place] [address] [facility] Part [facility] Start: 08-11-2020 End: 08-11-2020 Office Visit 08/11/2020 Office Visit Obstetrics and Gynecology She Spencer, RODNEY - CNAlexey [address] [place] [address] [facility] Start: 07-17-2020 [facility] Work Phone: Start: 07-12-2020 End: 07-12-2020 Office Visit 07/12/2020 Office Visit General Surgery Billy Ojeda MD [address] [facility] [address] [place] [address] [facility] GENERAL SURGERY Part [facility] Start: 07-07-2020 CBC W Auto Differential panel - Blood [facility] Start: 07-07-2020 Lipid 1996 panel - Serum or Plasma LIPID PROFILE [facility] Start: 06-29-2020 BUN + CREATININE [facility] Start: 06-24-2020 [facility] Work Phone: Start: 06-17-2020 Nephrology [facility] Work Phone: Comment on above: Note: Please make a referral to: Start: 06-08-2020 End: 06-08-2020 Appointment 06/08/2020 Appointment Radiology RadiologistFrantz [facility] Ultrasound Start: 06-06-2020 End: 06-06-2020 Patient education based on identified need [facility] Start: 06-06-2020 Medical Established Patient [facility] Work Phone: Start: 05-26-2020 Pneumococcal Vaccine: 65+ (2 of 2 - PPSV23 or PCV20) Pneumococcal Vaccine: 65+ (2 of 2 - PPSV23 or PCV20) [facility] Start: 05-06-2020 End: 05-06-2020 Patient education based on identified need [facility] Start: 05-06-2020 End: 05-06-2020 Provider instructions for treatment Intervention and counseling on cessation of tobacco use, 3-10 minutes [facility] Start: 05-06-2020 [facility] Work Phone: Start: 04-18-2020 End: 04-18-2020 Office Visit 04/18/2020 Office Visit Neurology Bhupinder Iniguez MD [address] [place] [address] [place] [address] [facility] Start: 04-07-2020 [facility] Work Phone: Start: 04-04-2020 End: 04-04-2020 Appointment [facility] Mammography Start: 03-31-2020 End: 03-31-2020 Patient education based on identified need [facility] Start: 03-04-2020 Lipid 1996 panel [facility] Work Phone: Start: 02-26-2020 [facility] Start: 02-26-2020 Screening for malignant neoplasm of breast [facility] Start: 02-26-2020 End: 02-26-2020 Patient education based on identified need [facility] Start: 02-07-2020 Colon Cancer Screen FIT/FOBT Colon Cancer Screen FIT/FOBT [place] Start: 02-07-2020 Screening for malignant neoplasm of colon [facility] Start: 02-02-2020 Influenza vaccination Flu vaccine (#1) [place] Start: 01-30-2020 A1C test (Diabetic or Prediabetic) A1C test (Diabetic or Prediabetic) [place] Comment on above: Postponed from 08/10/2017 (Not Indicated ) Start: 01-30-2020 Hepatitis C screen Hepatitis C screen [place], [place] Comment on above: Postponed from 1956 (Patient Refus ed) Start: 01-30-2020 HIV screen HIV screen [place], [place] Comment on above: Postponed from 10/31/1971 (Patient Refus ed) Start: 01-30-2020 Pneumococcal 0-64 years Vaccine (1 of 1 - PPSV23) Pneumococcal 0-64 years Vaccine (1 of 1 - PPSV23) [place] Comment on above: Postponed from 1962 (Insurance / F inancial) Start: 11-26-2019 Lipid 1996 panel [facility] Work Phone: Start: 11-20-2019 Medical Established Patient [facility] Work Phone: Start: 11-03-2019 End: 11-03-2019 Office Visit 11/03/2019 Office Visit General Surgery Billy Ojeda MD [address] [place] [address] [address] [place] [address] [facility] Start: 09-24-2019 End: 09-24-2019 Office Visit 09/24/2019 Office Visit Neurology Bhupinder Iniguez MD [address] [place] [address] [place] [address] [facility] Neurology specialist [place] Start: 08-31-2019 ENT [facility] Work Phone: Comment on above: Note: Please make a referral to: when sh e can have face to face visit , 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 was seen [facility] Start: 07-23-2019 Medical Established Patient [facility] Work Phone: Start: 06-05-2019 End: 06-05-2019 Patient education based on identified need [facility] Start: 06-05-2019 CPS- [facility] Clinic- F/U [facility] Work Phone: Start: 05-28-2019 End: 05-28-2019 Patient education based on identified need [facility] Start: 04-23-2019 End: 04-23-2019 Patient education based on identified need [facility] Start: 04-23-2019 End: 04-23-2019 Provider instructions for treatment Return to the clinic if condition worsens or new symptoms arise [facility] Start: 04-23-2019 End: 04-23-2019 Office Visit 04/23/2019 Office Visit Neurology Bhupinder Iniguez MD [address] [place] [id number] [facility] [place] Start: 04-20-2019 End: 04-20-2019 Office Visit 04/20/2019 Office Visit General Surgery Billy Ojeda MD [address] [facility] [address] [place], [place] [id number] [place] [facility] Start: 04-16-2019 Private Stock [facility] Work Phone: Start: 04-15-2019 End: 04-15-2019 Provider instructions for treatment Intervention and counseling on cessation of tobacco use, 3-10 minutes [facility] Start: 03-05-2019 End: 03-05-2019 Patient education based on identified need [facility] Start: 03-02-2019 End: 03-02-2019 Office Visit 03/02/2019 Office Visit Neurology Bhupinder Iniguez MD [address] [place] [id number] [facility] [place] Start: 02-25-2019 End: 02-25-2019 Appointment 02/25/2019 Appointment Radiology [facility] Start: 02-01-2019 Influenza vaccination [facility] Start: 12-22-2018 End: 10-04-2018 Free T4 [Mass/Vol] [facility] Work Phone: Start: 12-11-2018 Breast cancer screen [facility] Start: 11-19-2018 Screening for malignant neoplasm of breast Mammogram Screening [facility] Start: 11-06-2018 FQHC visit, estab pt Established Patient [facility] Work Phone: Start: 10-04-2018 Free T4 [Mass/Vol] [facility] Work Phone: Start: 09-11-2018 End: 10-04-2018 CBC W Auto Differential panel - Blood [facility] Work Phone: Comment on above: Note: Please make a referral to: Start: 09-04-2018 End: 10-04-2018 CBC W Auto Differential panel - Blood CBC with diff (CDP) [facility] Start: 09-04-2018 End: 10-04-2018 Comprehensive metabolic 2000 panel - Serum or Plasma Comprehensive Metabolic Panel (CP) [facility] Start: 09-04-2018 End: 10-04-2018 Lipid panel Lipid Panel (LIPR) [facility] Start: 09-04-2018 End: 10-04-2018 Thyrotropin [Units/volume] in Serum or Plasma TSH [facility] Start: 09-04-2018 End: 10-04-2018 Thyroxine (T4) free [Mass/volume] in Serum or Plasma T4 Free (FT4) [facility] Start: 11-19-2017 Screening mammography Screening mammography of both breasts, two views [facility] Start: 08-10-2017 HbA1c (Bld) [Mass fraction] A1C test (Diabetic or Prediabetic) [facility] Start: 08-10-2017 Hemoglobin A1c measurement A1C test (Diabetic or Prediabetic) [facility] Start: 2016 Respiratory Syncytial Virus (RSV) or age 60 yrs+ (1 - Risk 60-74 years 1-dose series) Respiratory Syncytial Virus (RSV) or age 60 yrs+ (1 - Risk 60-74 years 1-dose series) [facility] [employer] [facility] Start: 2016 RSV Vaccine (1 - 1-dose 60+ series) RSV Vaccine (1 - 1-dose 60+ series) [facility] Start: 03-26-2016 Shingles Vaccine (2 of 3) Shingles Vaccine (2 of 3) [facility] Start: 03-26-2016 Shingrix Vaccine (2 of 3) Shingrix Vaccine (2 of 3) [facility] Start: 2001 Screening for malignant neoplasm of colon [facility] Start: 1986 Screening for malignant neoplasm of cervix HPV (without or with Pap) [facility] Start: 1986 Zoledronic acid therapy Alpha-1 Antitrypsin Deficiency Screening [facility] Start: 1974 Annual PCP Team Chronic Disease Visit Annual PCP Team Chronic Disease Visit [facility] Start: 1974 Hepatitis C screening [facility] [employer] Start: 10-31-1971 HIV screening HIV screen [facility] Start: 1968 Depression Monitoring Depression Monitoring [facility] Start: 1962 Pneumococcal 0-64 years Vaccine (1 of 1 - PPSV23) Pneumococcal 0-64 years Vaccine (1 of 1 - PPSV23) [place] Start: 1962 Pneumococcal 0-64 years Vaccine (1 of 2 - PPSV23) Pneumococcal 0-64 years Vaccine (1 of 2 - PPSV23) [facility] Start: 1956 Hepatitis C screening Hepatitis C screen [facility] Start: 1956 Screening for malignant neoplasm of colon [facility] End: 08-16-2022 Cytopathology procedure, preparation of smear, genital source PAP SMEAR Lab Routine Screening for malignant neoplasm of cervix 1 Occurrences starting 08/16/2022 until 08/16/2022 [facility] [employer] Work Phone: Comment on above: 1 Occurrences starting 08/16/2022 until 08/16/2022 Dermatopathology exam Dermatopat hology exam Pathology and Cytology Timed Neoplasm of unspecified behavior of bone, soft tissue, and skin Release Upon Ordering for 1 Occurrences starting 07/16/2023 [facility] Work Phone: Comment on above: Release Upon Ordering for 1 Occurrences starting 07/16/2023 End: 08-16-2022 Herpes Simplex 1 & 2, Molecular [facility] Work Phone: Comment on above: 1 Occurrences starting 08/16/2022 until 08/16/[address] [facility] Work Phone: Patient referral [facility] Work Phone: End: 08-16-2022 Vaginitis DNA Probe [facility] Work Phone: Comment on above: 1 Occurrences starting 08/16/2022 until 08/16/2022 XR Shoulder - right Views [facility] Immunizations Immunization Date Immunization Notes Care Provider Maribeth martel 10-04-2023 pneumococcal vaccine , unspecified formulation; Translations: [PCV-20] Karla Clark [facility] Work Phone: [facility] Comment on above: Note: Patient tolera cornelia well. No signs or symptoms of adverse reactions. Patient waited a minimum of 15 minutes. 10-04-2023 Imm.Admin. over 18 y rs Any Route FIRST Injection Karla Clark CNP Work Phone: [facility] 10-04-2023 Admin Pneumococcal Vaccine Medicare Karla Clark CNP Work Phone: [facility] 03-22-2022 COVID-19 mRNA Bivale nt Booster ([employer]rainBot) SCRAP SEPARATOR Karla Clark Work Phone: [facility] 06-12-2021 COVID-19 mRNA, Comirnaty ([employer]) SCRAP SEPARATOR Karla Clark Work Phone: [facility] 07-05-2020 1st Dose MODERNA COVID-19 Vaccine Karla Clark CNP Work Phone: [facility] 06-07-2020 1st Dose MODERNA COVID-19 Vaccine Karla Amber [employer]UTE CLERK [employer] Work Phone: [facility] 03-31-2020 pneumococcal conjuga te vaccine, 13 valent; Translations: [Prevnar-13] [facility] Comment on above: Note: pt tolerated w ell pt waited 10 min in treatment room with no adverse effects noted at this time 03-31-2020 Imm.Admin. over 18 y rs Any Route FIRST Injection (Rendering physcian modifier) [facility] Work Phone: 03-31-2020 Imm.Admin. over 18 y rs Any Route FIRST Injection [facility] Work Phone: 03-14-2020 influenza, seasonal, injectable; Translations: [Flluarix] [facility] Comment on above: Note: pt tolerated w ell, pt waited 10 min in treatment with no adverse effects noted at this time. 03-14-2020 influenza, injectabl e, quadrivalent, preservative free [facility] Work Phone: 03-14-2020 Imm.Admin. over 18 y rs Any Route FIRST Injection [facility] Work Phone: 03-14-2020 Imm.Admin. over 18 y rs Any Route FIRST Injection (Rendering physcian modifier) [facility] Work Phone: 03-14-2020 influenza virus vaccine, unspecified formulation Yandel Daniel MD Work Phone: [facility] 04-15-2019 influenza, injectabl e, quadrivalent, preservative free [facility] Work Phone: 04-15-2019 influenza, seasonal, injectable [facility] Comment on above: Note: Patient tolera cornelia well. No signs or symptoms of adverse reactions. Patient waited in facility for 15 minutes. 03-20-2018 influenza, injectabl e, quadrivalent, preservative free; Translations: [FLU VAC NO PRSV 4 DANNY 3 YRS+] [facility] 03-20-2018 influenza, seasonal, injectable, preservative free [facility] 03-20-2018 IMMUNIZATION ADMIN; Translations: [IMMUNIZATION ADMIN] [facility] 03-20-2018 influenza virus vaccine, unspecified formulation Karla Clark MINUTE CLERK [employer] Work Phone: [facility] Work Phone: Comment on above: Note: Influenza (Juan M lt) 03-20-2018 influenza, high dose seasonal, preservative-free [facility] Comment on above: Note: Influenza (Juan M lt) 12-27-2017 tetanus toxoid, redu soren diphtheria toxoid, and acellular pertussis vaccine, adsorbed [address] 03-20-2017 influenza virus vaccine, unspecified formulation [address] 03-20-2017 influenza, seasonal, injectable Karla Clark MINUTE CLERK [employer] Work Phone: [facility] 03-05-2017 influenza, injectabl e, quadrivalent, preservative free; Translations: [FLU VAC NO PRSV 4 DANNY 3 YRS+] [facility] 03-05-2017 influenza, seasonal, injectable, preservative free [facility] 03-05-2017 IMMUNIZATION ADMIN; Translations: [IMMUNIZATION ADMIN] [facility] 03-05-2017 influenza virus vaccine, unspecified formulation Karla Clark MINUTE CLERK [employer] Work Phone: [facility] Work Phone: Comment on above: Note: Influenza (Juan M lt) 03-05-2017 influenza, high dose seasonal, preservative-free [facility] Comment on above: Note: Influenza (Juan M lt) 04-03-2016 Influenza Vaccine, unspecified formulation [address] 03-20-2016 influenza, injectabl e, quadrivalent, preservative free; Translations: [FLU VAC NO PRSV 4 DANNY 3 YRS+] [facility] 03-20-2016 IMMUNIZATION ADMIN; Translations: [IMMUNIZATION ADMIN] [facility] 03-20-2016 influenza virus vaccine, unspecified formulation Karla Clark MINUTE CLERK [employer] Work Phone: [facility] Work Phone: Comment on above: Note: Influenza (Juan M lt) 03-20-2016 influenza, high dose seasonal, preservative-free [facility] Comment on above: Note: Influenza (Juan M lt) 01-30-2016 zoster vaccine, live Mth [address] [facility] 04-08-2015 influenza, seasonal, injectable, preservative free Karla Clark MINUTE CLERK [employer] Work Phone: [facility] 11-07-2014 varicella virus vaccine Gary Clark MINUTE CLERK [employer] Work Phone: [facility] 04-12-2014 influenza virus vaccine, unspecified formulation Mth 2 [facility] 03-05-2012 influenza, seasonal, injectable Karla Clark MINUTE CLERK [employer] Work Phone: [facility] 01-06-2009 tetanus toxoid, redu soren diphtheria toxoid, and acellular pertussis vaccine, adsorbed Karla Clark MINUTE CLERK [employer] Work Phone: [facility] Payers Date Payer Category Payer Private Health Insurance [id number] 2023 Medicare [id number] 2023 Medicare (Managed Care) ANDRA Blackburn EDJANIYARE ADVANTAGE [id number] 2023 Private Health Insurance [id number] 2022 Self-pay 2021 Medicaid [id number] 2014 Unknown [facility] MEDICAID xxxxxxxxxxx 2014-Present [phone] CLAIMS DEPARTMENT [address] [place] [address] xxxxxxxxxxx [id number] 1959 Medicaid [id number] 2013 Unknown [id number] [id number] 1959 Medicare [id number]. [id number] 1956 Unknown [id number] 2.16.840.1.890953.3.579.2. 593 1956 Unknown [id number] 2.16.840.1.317693.3.579.2. 593 1956 Unknown [id number] 2.16.840.1.715258.3.579.2. 593 1956 Unknown [id number] 2.16.840.1.260782.3.579.2. 593 1956 Unknown [id number] 2.16.840.1.623865.3.579.2. 1259 1956 Unknown [id number] 2.16.840.1.676099.3.579.2. 1258 1956 Unknown [id number] 2.16.840.1.522833.3.579.2. 1258 1956 Unknown [id number] 2.16.840.1.677742.3.579.2. 1258 1956 Unknown [id number] 2.16.840.1.393691.3.579.2. 1258 1956 Unknown [id number] 2.16.840.1.378771.3.579.2. 1258 1956 Unknown [id number] 2.16.840.1.637350.3.579.2. 1258 1956 Unknown [id number] 2.16.840.1.244258.3.579.2. 1286 1956 Unknown [id number] 2.16.840.1.074554.3.579.2. 175 1956 Unknown [id number] 2.16.840.1.735536.3.579.2. 175 1956 Unknown [id number] 2.16.840.1.720578.3.579.2. 173 Medicaid [id number] Unknown 1 - [employer] Medicare [id number] 200 2.16.840.1.580081.3.140.1. [id number] Unknown [id number] 2.16.840.1.383063.3.579.2. 531 Unknown [id number] 2.16.840.1.044019.3.579.2. 531 Unknown [id number] 2.16.840.1.638920.3.579.2. 531 Unknown [id number] 2.16.840.1.517896.3.579.2. 531 Social History Date Type Detail Facility [facility]: [facility] Comment on above: 1/2 PPD Start: 2-4 cups pd [facility] Start: 01-29-2019 End: 08-19-2023 Current every day smoker [facility] Gender identity finding (finding) [facility] Assertion [facility]finding[facility] Assertion Finding of sexua l orientation (finding) [facility] Tobacco user (finding) [facility] Work Phone: Tobacco smoking status Unknown if ever smoked [facility] History of tobacco use [facility] Start: 01-29-2019 End: 04-23-2024 Cigarettes smoked current (pack per day) - Reported [facility]ida [facility] Start: 01-29-2019 End: 04-23-2024 Alcohol intake No [facility] Start: 1955 Sex Assigned At Not on file [facility] [place] Start: 03-23-2019 End: 11-09-2024 Alcohol intake Current non-drinker of alcohol (finding) [facility] [place] Start: 02-27-2022 End: 11-27-2023 Assertion [facility] Alcohol consumpt ion screening (procedure) [facility] Work Phone: Start: 03-23-2019 End: 08-02-2023 Tobacco use and exposure Never used [facility] [place] Exposure to SARS-CoV-2 (event) Not sure [facility] [place] Start: 04-18-2020 End: 01-01-2022 Tobacco Comment I smoke about 3-6 cig/day - 04-18-20. [employer] [place] Assertion Light cigarette smoker (1-9 cigs/day) (finding) [facility] Assertion Exposure to poll ution (event) [facility] Start: 09-11-2022 End: 08-20-2023 Assertion Smoker (finding) [facility] Assertion Finding relating to sexual activity (finding) [facility] Start: 08-02-2023 End: 12-17-2023 Assertion Ex-smoker (finding) [facility] Start: 1955 Sex Assigned At Female [facility] Assertion Currently not se xually active (finding) [facility] Start: 07-16-2023 End: 12-16-2023 Tobacco smoking status NHIS Never smoked tobacco [facility] Start: 06-28-2023 End: 11-18-2023 Alcohol intake Lifetime non-drinker (finding) [facility] Start: 05-30-2023 Tobacco Comment 3-4 cigarettes a day [facility] Start: 08-19-2023 Tobacco Comment 6-10 cigs/day [facility] Start: 07-19-2023 Alcohol Comment caffeine 1-2 cups/da y [facility] Start: 07-13-2012 Sex Female (finding) [place] [facility] [facility] NEGATED: Highlighted row Assertion Exposure to pollution (event) [facility] NEGATED: Highlighted row Assertion Current drinker of alcohol (finding) [facility] NEGATED: Highlighted row Assertion Finding relating to drug misuse behavior (finding) [facility] NEGATED: Highlighted row Assertion Tobacco user (finding) [facility] Work Phone: NEGATED: Highlighted row Assertion Illicit drug use (finding) [facility] Work Phone: NEGATED: Highlighted row Assertion Misuse of prescription only drugs (finding) [facility] Work Phone: NEGATED: Highlighted row Assertion [facility] NEGATED: Highlighted row Assertion Contraception (finding) [facility] NEGATED: Highlighted row Assertion Sexually active (finding) [facility] Medical Equipment Procedure Code Equipment Code Equipment Origin al Text Equipment Identifier Dates Open reduction and internal fixation of fracture of humerus CANCELLOUS 7.5 CRUSHED FDA Start: 09-13-2022 Open reduction and internal fixation of fracture of humerus Orthopaedic bone screw, non-bioabsorbable, non-sterile ()[id number] FDA Start: 09-13-2022 Open reduction and internal fixation of fracture of humerus Orthopaedic fixation plate, non-bioabsorbable, sterile ()[id number] FDA Start: 09-13-2022 Open reduction and internal fixation of fracture of humerus Orthopaedic bone wire ()[id number] FDA Start: 09-13-2022 Open reduction and internal fixation of fracture of humerus Orthopaedic bone wire ()[id number] FDA Start: 09-13-2022 Open reduction and internal fixation of fracture of humerus Orthopaedic bone wire ()[id number] FDA Start: 09-13-2022 Open reduction and internal fixation of fracture of humerus Orthopaedic bone screw, non-bioabsorbable, non-sterile ()[id number] FDA Start: 09-13-2022 Open reduction and internal fixation of fracture of humerus Orthopaedic bone screw, non-bioabsorbable, non-sterile ()[id number] FDA Start: 09-13-2022 Open reduction and internal fixation of fracture of humerus Orthopaedic bone screw, non-bioabsorbable, non-sterile ()[id number] FDA Start: 09-13-2022 Open reduction and internal fixation of fracture of humerus Orthopaedic bone screw, non-bioabsorbable, non-sterile ()[id number] FDA Start: 09-13-2022 Open reduction and internal fixation of fracture of humerus Orthopaedic bone screw, non-bioabsorbable, non-sterile ()[id number] FDA Start: 09-13-2022 Open reduction and internal fixation of fracture of humerus Orthopaedic bone screw, non-bioabsorbable, non-sterile ()[id number] FDA Start: 09-13-2022 Open reduction and internal [...] Facility 12-24-2023 Functional status Patient at [facility] Work Phone: 08-20-2023 Functional status Patient at [facility] Work Phone: 08-15-2023 Functional status Disability Sta tus Patient at [facility] Work Phone: 03-28-2023 Functional status Patient at [facility] Work Phone: 03-15-2023 Functional status Patient at [facility] Work Phone: Mental Status Date Assessment Result Facility 12-24-2023 Cognitive function Cognitive Sta tus Patient at [facility] Work Phone: 08-20-2023 Cognitive function Cognitive Sta tus Patient at [facility] Work Phone: 03-28-2023 Cognitive function Cognitive Sta tus Patient at [facility] Work Phone: 03-15-2023 Cognitive function Cognitive Sta tus Patient at [facility] Work Phone: Cognitive function No anxiety Anxiety (fi nding) [facility] Work Phone: Clinical Notes 09-04-2018 to 12-17-2024 Soni Sosa - 12/17/2024 8:30 AM EDT Note Date & Type Note Facility 12-17-2024 History of Presen t illness Narrative Explained policies and procedure of an echocardiogram/Doppler study. documented in this encounter [facility] 06-17-2024 Instructions Includes: Instructions for all patient encounters Intervention and counseling on cessation of tobacco use, 3-10 minutes Discussed medication and nicotine replacement for tobacco cessation Last Documented On 3 8:54AM ; [facility] Intervention and counseling on cessation of tobacco use, 3-10 minutes Discussed medication and nicotine replacement for tobacco cessation Last Documented On 2 1:56PM ; [facility] Intervention and counseling on cessation of tobacco use, 3-10 minutes Last Documented On 0 2:07PM ; [facility] Return to the clinic if cond ition worsens or new symptoms arise Last Documented On 9 1:59PM ; [facility] Intervention and counseling on cessation of tobacco use, 3-10 minutes Last Documented On 9 10:39AM ; [facility] Education and Decision Aids were provided during visit for: Discussed nutritional needs teach healthy choices including fruits and vegetables Last Documented On 4 8:44AM ; [facility] Patient education about a pr oper diet Last Documented On 4 8:44AM ; [facility] Discussed concerns about exe rcise : promote physical activity Last Documented On 4 8:44AM ; [facility] Discussed nutritional needs teach healthy choices including fruits and vegetables Last Documented On 4 1:26PM ; [facility] Patient education about a pr oper diet Last Documented On 4 1:26PM ; [facility] Discussed concerns about exe rcise : promote physical activity Last Documented On 4 1:26PM ; [facility] Discussed nutritional needs teach healthy choices including fruits and vegetables Last Documented On 3 10:55AM ; [facility] Patient education about a pr oper diet Last Documented On 3 10:55AM ; [facility] Discussed concerns about exe rcise : promote physical activity Last Documented On 3 10:55AM ; [facility] Discussed nutritional needs teach healthy choices including fruits and vegetables Last Documented On 3 9:37AM ; [facility] Patient education about a pr oper diet Last Documented On 3 9:37AM ; [facility] Discussed concerns about exe rcise : promote physical activity Last Documented On 3 9:37AM ; [facility] Not requesting contraception Last Documented On 3 9:37AM ; [facility] Discussed nutritional needs teach healthy choices including fruits and vegetables Last Documented On 3 9:20AM ; [facility] Patient education about a pr oper diet Last Documented On 3 9:20AM ; [facility] Discussed concerns about exe rcise : promote physical activity Last Documented On 3 9:20AM ; [facility] Discussed nutritional needs teach healthy choices including fruits and vegetables Last Documented On 3 2:02PM ; [facility] Patient education about a pr oper diet Last Documented On 3 2:02PM ; [facility] Discussed concerns about exe rcise : promote physical activity Last Documented On 3 2:02PM ; [facility] Discussed nutritional needs teach healthy choices including fruits and vegetables Last Documented On 3 8:32AM ; [facility] Patient education about a pr oper diet Last Documented On 3 8:32AM ; [facility] Discussed concerns about exe rcise : promote physical activity Last Documented On 3 8:32AM ; [facility] Discussed nutritional needs teach healthy choices including fruits and vegetables Last Documented On 3 11:28AM ; [facility] Patient education about a pr oper diet Last Documented On 3 11:28AM ; [facility] Discussed concerns about exe rcise : promote physical activity Last Documented On 3 11:28AM ; [facility] Discussed nutritional needs teach healthy choices including fruits and vegetables Last Documented On 2 2:01PM ; [facility] Patient education about a pr oper diet Last Documented On 2 2:01PM ; [facility] Discussed concerns about exe rcise : promote physical activity Last Documented On 2 2:01PM ; [facility] Discussed nutritional needs teach healthy choices including fruits and vegetables Last Documented On 2 2:11PM ; [facility] Patient education about a pr oper diet Last Documented On 2 2:11PM ; [facility] Discussed concerns about exe rcise : promote physical activity Last Documented On 2 2:11PM ; [facility] Discussed current self-care methods/coping skills. ~Validated and normalized pt's feelings while assisting patient process recent events. ~Discussed ongoing counseling. ~Discussed lifestyle changes to address chronic illness. ~Supported patient's personal health goals ~wordfinds. walk, read, eat, enjoy my best friesnd Last Documented On 2 5:54PM ; [facility] Discussed nutritional needs teach healthy choices including fruits and vegetables Last Documented On 2 10:04AM ; [facility] Patient education about a pr oper diet Last Documented On 2 10:04AM ; [facility] Discussed concerns about exe rcise : promote physical activity Last Documented On 2 10:04AM ; [facility] Discussed nutritional needs teach healthy choices including fruits and vegetables Last Documented On 2 1:25PM ; [facility] Patient education about a pr oper diet Last Documented On 2 1:25PM ; [facility] Discussed concerns about exe rcise : promote physical activity Last Documented On 2 1:25PM ; [facility] Discussed nutritional needs teach healthy choices including fruits and vegetables Last Documented On 1 10:08AM ; [facility] Patient education about a pr oper diet Last Documented On 1 10:08AM ; [facility] Discussed concerns about exe rcise : promote physical activity Last Documented On 1 10:08AM ; [facility] Discussed nutritional needs teach healthy choices including fruits and vegetables Last Documented On 1 1:12PM ; [facility] Patient education about a pr oper diet Last Documented On 1 1:12PM ; [facility] Patient education about a pr oper diet Last Documented On 1 1:30PM ; [facility] Patient education about meal planning Last Documented On 1 1:30PM ; [facility] Education about changing eat ing habits Last Documented On 1 1:30PM ; [facility] Patient education about high fiber diet Last Documented On 1 1:30PM ; [facility] Patient education about low fat diet Last Documented On 1 1:30PM ; [facility] Patient education about low cholesterol diet Last Documented On 1 1:30PM ; [facility] Patient education about low carbohydrate diet Last Documented On 1 1:30PM ; [facility] Patient education about high protein diet Last Documented On 1 1:30PM ; [facility] Discussed concerns about exe rcise : promote physical activity Last Documented On 1 1:12PM ; [facility] Education/counseling conduct ed by pharmacist Last Documented On 0 1:39PM ; [facility] Vaccination counseling Last Documented On 0 1:39PM ; [facility] Discussed concerns about exe rcise : promote physical activity Last Documented On 0 2:16PM ; [facility] Patient goals decrease short ness of breath episodes Last Documented On 0 2:11PM ; [facility] Patient states that she uses her [...] recently Last Documented On 0 2:24PM ; [facility] Patient education about a pr oper diet Last Documented On 0 2:54PM ; [facility] Patient education about meal planning Last Documented On 0 2:54PM ; [facility] Education about changing eat ing habits Last Documented On 0 2:54PM ; [facility] Patient education about high fiber diet Last Documented On 0 2:54PM ; [facility] Patient education about low fat diet Last Documented On 0 2:54PM ; [facility] Patient education about low cholesterol diet Last Documented On 0 2:54PM ; [facility] Patient education about low carbohydrate diet Last Documented On 0 2:54PM ; [facility] Patient education about high protein diet Last Documented On 0 2:54PM ; [facility] Discussed nutritional needs teach healthy choices including fruits and vegetables Last Documented On 0 11:11AM ; [facility] Patient education about a pr oper diet Last Documented On 0 11:11AM ; [facility] Patient education about a pr oper diet Last Documented On 0 11:28AM ; [facility] Patient education about meal planning Last Documented On 0 11:28AM ; [facility] Education about changing eat ing habits Last Documented On 0 11:28AM ; [facility] Patient education about high fiber diet Last Documented On 0 11:28AM ; [facility] Patient education about low fat diet Last Documented On 0 11:28AM ; [facility] Patient education about low cholesterol diet Last Documented On 0 11:28AM ; [facility] Patient education about low carbohydrate diet Last Documented On 0 11:28AM ; [facility] Patient education about high protein diet Last Documented On 0 11:28AM ; [facility] Discussed concerns about exe rcise : promote physical activity Last Documented On 0 11:11AM ; [facility] Education/counseling conduct ed by pharmacist Last Documented On 0 1:41PM ; [facility] Patient states that she lonnie gonzalez [...] own Last Documented On 0 2:08PM ; [facility] Education/counseling conduct ed by pharmacist Last Documented On 9 1:12PM ; [facility] Patient states that she lonnie gonzalez has issues with her inhaler with the spacer. Patient did not bring in inhaler or spacer. Patient was told to bring in inhalers at next scheduled visit for pharmacist to assess inhalation technique. Patient is agreeable Last Documented On 9 1:13PM ; [facility] Patient goals Start using ch deon to help with inhaling dulera Last Documented On 9 2:40PM ; [facility] Patient states that she is g [...] vaccines Last Documented On 9 2:51PM ; [facility] Discussed nutritional needs teach healthy choices including fruits and vegetables Last Documented On 9 9:29AM ; [facility] Patient education about a pr oper diet Last Documented On 9 9:29AM ; [facility] Discussed concerns about exe rcise : promote physical activity Last Documented On 9 9:29AM ; [facility] Work Phone: [phone] [phone] Instructions Includes: Instructions for all patient encounters Instructions to patient Intervention and counseling on cessation of tobacco use, 3-10 minutes Discussed medication and nicotine replacement for tobacco cessation Last Documented On 3 8:54AM ; [facility] Intervention and counseling on cessation of tobacco use, 3-10 minutes Discussed medication and nicotine replacement for tobacco cessation Last Documented On 2 1:56PM ; [facility] Intervention and counseling on cessation of tobacco use, 3-10 minutes Last Documented On 0 2:07PM ; [facility] Return to the clinic if cond ition worsens or new symptoms arise Last Documented On 9 1:59PM ; [facility] Intervention and counseling on cessation of tobacco use, 3-10 minutes Last Documented On 9 10:39AM ; [facility] Education and Decision Aids were provided during visit for: Discussed nutritional needs teach healthy choices including fruits and vegetables Last Documented On 4 8:44AM ; [facility] Patient education about a pr oper diet Last Documented On 4 8:44AM ; [facility] Discussed concerns about exe rcise : promote physical activity Last Documented On 4 8:44AM ; [facility] Discussed nutritional needs teach healthy choices including fruits and vegetables Last Documented On 4 1:26PM ; [facility] Patient education about a pr oper diet Last Documented On 4 1:26PM ; [facility] Discussed concerns about exe rcise : promote physical activity Last Documented On 4 1:26PM ; [facility] Discussed nutritional needs teach healthy choices including fruits and vegetables Last Documented On 3 10:55AM ; [facility] Patient education about a pr oper diet Last Documented On 3 10:55AM ; [facility] Discussed concerns about exe rcise : promote physical activity Last Documented On 3 10:55AM ; [facility] Discussed nutritional needs teach healthy choices including fruits and vegetables Last Documented On 3 9:37AM ; [facility] Patient education about a pr oper diet Last Documented On 3 9:37AM ; [facility] Discussed concerns about exe rcise : promote physical activity Last Documented On 3 9:37AM ; [facility] Not requesting contraception Last Documented On 3 9:37AM ; [facility] Discussed nutritional needs teach healthy choices including fruits and vegetables Last Documented On 3 9:20AM ; [facility] Patient education about a pr oper diet Last Documented On 3 9:20AM ; [facility] Discussed concerns about exe rcise : promote physical activity Last Documented On 3 9:20AM ; [facility] Discussed nutritional needs teach healthy choices including fruits and vegetables Last Documented On 3 2:02PM ; [facility] Patient education about a pr oper diet Last Documented On 3 2:02PM ; [facility] Discussed concerns about exe rcise : promote physical activity Last Documented On 3 2:02PM ; [facility] Discussed nutritional needs teach healthy choices including fruits and vegetables Last Documented On 3 8:32AM ; [facility] Patient education about a pr oper diet Last Documented On 3 8:32AM ; [facility] Discussed concerns about exe rcise : promote physical activity Last Documented On 3 8:32AM ; [facility] Discussed nutritional needs teach healthy choices including fruits and vegetables Last Documented On 3 11:28AM ; [facility] Patient education about a pr oper diet Last Documented On 3 11:28AM ; [facility] Discussed concerns about exe rcise : promote physical activity Last Documented On 3 11:28AM ; [facility] Discussed nutritional needs teach healthy choices including fruits and vegetables Last Documented On 2 2:01PM ; [facility] Patient education about a pr oper diet Last Documented On 2 2:01PM ; [facility] Discussed concerns about exe rcise : promote physical activity Last Documented On 2 2:01PM ; [facility] Discussed nutritional needs teach healthy choices including fruits and vegetables Last Documented On 2 2:11PM ; [facility] Patient education about a pr oper diet Last Documented On 2 2:11PM ; [facility] Discussed concerns about exe rcise : promote physical activity Last Documented On 2 2:11PM ; [facility] Discussed current self-care methods/coping skills. ~Validated and normalized pt's feelings while assisting patient process recent events. ~Discussed ongoing counseling. ~Discussed lifestyle changes to address chronic illness. ~Supported patient's personal health goals ~wordfinds. walk, read, eat, enjoy my best friesnd Last Documented On 2 5:54PM ; [facility] Discussed nutritional needs teach healthy choices including fruits and vegetables Last Documented On 2 10:04AM ; [facility] Patient education about a pr oper diet Last Documented On 2 10:04AM ; [facility] Discussed concerns about exe rcise : promote physical activity Last Documented On 2 10:04AM ; [facility] Discussed nutritional needs teach healthy choices including fruits and vegetables Last Documented On 2 1:25PM ; [facility] Patient education about a pr oper diet Last Documented On 2 1:25PM ; [facility] Discussed concerns about exe rcise : promote physical activity Last Documented On 2 1:25PM ; [facility] Discussed nutritional needs teach healthy choices including fruits and vegetables Last Documented On 1 10:08AM ; [facility] Patient education about a pr oper diet Last Documented On 1 10:08AM ; [facility] Discussed concerns about exe rcise : promote physical activity Last Documented On 1 10:08AM ; [facility] Discussed nutritional needs teach healthy choices including fruits and vegetables Last Documented On 1 1:12PM ; [facility] Patient education about a pr oper diet Last Documented On 1 1:12PM ; [facility] Patient education about a pr oper diet Last Documented On 1 1:30PM ; [facility] Patient education about meal planning Last Documented On 1 1:30PM ; [facility] Education about changing eat ing habits Last Documented On 1 1:30PM ; [facility] Patient education about high fiber diet Last Documented On 1 1:30PM ; [facility] Patient education about low fat diet Last Documented On 1 1:30PM ; [facility] Patient education about low cholesterol diet Last Documented On 1 1:30PM ; [facility] Patient education about low carbohydrate diet Last Documented On 1 1:30PM ; [facility] Patient education about high protein diet Last Documented On 1 1:30PM ; [facility] Discussed concerns about exe rcise : promote physical activity Last Documented On 1 1:12PM ; [facility] Education/counseling conduct ed by pharmacist Last Documented On 0 1:39PM ; [facility] Vaccination counseling Last Documented On 0 1:39PM ; [facility] Discussed concerns about exe rcise : promote physical activity Last Documented On 0 2:16PM ; [facility] Patient goals decrease short ness of breath episodes Last Documented On 0 2:11PM ; [facility] Patient states that she uses her [...] recently Last Documented On 0 2:24PM ; [facility] Patient education about a pr oper diet Last Documented On 0 2:54PM ; [facility] Patient education about meal planning Last Documented On 0 2:54PM ; [facility] Education about changing eat ing habits Last Documented On 0 2:54PM ; [facility] Patient education about high fiber diet Last Documented On 0 2:54PM ; [facility] Patient education about low fat diet Last Documented On 0 2:54PM ; [facility] Patient education about low cholesterol diet Last Documented On 0 2:54PM ; [facility] Patient education about low carbohydrate diet Last Documented On 0 2:54PM ; [facility] Patient education about high protein diet Last Documented On 0 2:54PM ; [facility] Discussed nutritional needs teach healthy choices including fruits and vegetables Last Documented On 0 11:11AM ; [facility] Patient education about a pr oper diet Last Documented On 0 11:11AM ; [facility] Patient education about a pr oper diet Last Documented On 0 11:28AM ; [facility] Patient education about meal planning Last Documented On 0 11:28AM ; [facility] Education about changing eat ing habits Last Documented On 0 11:28AM ; [facility] Patient education about high fiber diet Last Documented On 0 11:28AM ; [facility] Patient education about low fat diet Last Documented On 0 11:28AM ; [facility] Patient education about low cholesterol diet Last Documented On 0 11:28AM ; [facility] Patient education about low carbohydrate diet Last Documented On 0 11:28AM ; [facility] Patient education about high protein diet Last Documented On 0 11:28AM ; [facility] Discussed concerns about exe rcise : promote physical activity Last Documented On 0 11:11AM ; [facility] Education/counseling conduct ed by pharmacist Last Documented On 0 1:41PM ; [facility] Patient states that she lonnie gonzalez [...] own Last Documented On 0 2:08PM ; [facility] Education/counseling conduct ed by pharmacist Last Documented On 9 1:12PM ; [facility] Patient states that she lonnie gonzalez has issues with her inhaler with the spacer. Patient did not bring in inhaler or spacer. Patient was told to bring in inhalers at next scheduled visit for pharmacist to assess inhalation technique. Patient is agreeable Last Documented On 9 1:13PM ; [facility] Patient goals Start using ch deon to help with inhaling dulera Last Documented On 9 2:40PM ; [facility] Patient states that she is g [...] vaccines Last Documented On 9 2:51PM ; [facility] Discussed nutritional needs teach healthy choices including fruits and vegetables Last Documented On 9 9:29AM ; [facility] Patient education about a pr oper diet Last Documented On 9 9:29AM ; [facility] Discussed concerns about exe rcise : promote physical activity Last Documented On 9 9:29AM ; [facility] Work Phone: 1(383) 206-695111-21-2024 Hospital Discharge instructions* Discharge Instructions* Jann Rust [...] acute medical concern [facility] Discharge instructions* Discharge Instructions* Jesus Mims [...] has been provided. [facility] in [facility] History of Present illness Narrative* Chago Spangler - 04/23/2024 2:38 PM EST [facility] Emergency/Trauma Note PATIENT NAME: Gail Almeida Shift date: 04/23/2024 Shift day: Shift # 1 Room # Name: Gail Almeida Age: 68 y.o. Gender: female Methodist: [facility]: Trauma/Incident type: Stroke Alert Admit Date & Time: 04/23/2024 1:20 PM TRAUMA NAME: None PATIENT/EVENT DESCRIPTION: Gail Almeida is a 68 y.o. female who arrived ED via ground ambulance as stroke alert. Patient kevin admitted to Patient was conscious and responsive when railways assistant visited. SPIRITUAL [id number]: Patient was raised Orthodox and very receptive to spiritual care. Patient declined anointing of thesick. Family was not present at the time. Assembler Unit called patient's emergency blocker and cutter contact lens and legal guardian, Alma Louis, at [phone] and left a message. Patient said she would like to have someone notified. Assembler Unit provided ministry of presence, offered support, and prayed with patient. Patient expressed appreciation for the blessing she received. PATIENT BELONGINGS: This railways assistant did not handle patient's belongings. ANY BELONGINGS OF SIGNIFICANT VALUE NOTED: Unknown REGISTRATION STAFF NOTIFIED? Yes WHAT IS YOUR SPIRITUAL CARE PLAN FOR THIS PATIENT?: Follow up visits recommended for ongoing assessment of patient's condition and for more prayers andsupport. . [facility] [phone] documented in this [facility]Bon [facility] Telephone encounter Note* Telephone Encounter - Rekha Ng - 03/16/2024 10:49 AM EDT Received no call back per [facility] re: rs'ing or confirmation on OP PT needed. [facility] [id number] Miscellaneous Notes* Telephone Encounter - Rekha Ng - 03/16/2024 10:49 AM EDT Received no call back per [facility] re: rs'ing or confirmation on OP PT needed. * Telephone Encounter - Rekha Ng - 03/05/2024 4:44 PM EDT CALL TO NOTE that pending their call back on guarenteed PT Eval time /day is needed to rs, per Pratik documented in this [facility]10-03-2024 Telephone encounter Note* Telephone Encounter - Rekha Ng - 03/05/2024 4:44 PM EDT CALL TO NOTE that pending their call back on guarenteed PT Eval time /day is needed to rs, per Pratik [facility] [id number] History of Present illness Narrative* MILLA Minaya - 02/25/2024 1:30 PM EDT Images from the original note were not included. Reason for Appointment: EMG Patient: Gail Almeida : 1955 EMG Computer: [employer] Referring Physician: Dr. Lucy Gilbert EMG: BLE nursing support worker: Cody Lauren RT(R) Office Location: [place] Reason for EMG: c/o soreness in bilateral posterior lower legs, low back pain. No hx of DM. Not on blood thinners. Comments: Procedure was explained to the patient who expressed understanding. Patient appeared to have tolerated the test well despite some discomfort due to the nature of the test. documented in this encounterSamaritan [id number] History of Present illness Narrative* Lucy Gilbert, DO - 02/18/2024 3:00 PM EDT Images from [...] Past Medical History: Diagnosis Date Arthritis Asthma ([facility]) Bipolar disorder ([facility]) COPD (chronic obstructive pulmonary disease) ([facility]) Diabetes ([facility]/HCC) Localized swelling, mass or lump of neck [place] (myocardial infarction) ([facility]) 03/2021 Ovarian cancer ([facility]/HCC) Parkinson disease ([facility]/H[facility]) Pharyngoesophageal dysphagia Schizophrenia ([facility]/H[facility]) Thyromegaly ([facility]) Past Surgical History: Procedure Laterality Date DILATION [...] reflexes are 2+ and symmetric throughout. Coordination: [id number] testing and rapid alternating movements are normal [...] and determine type and severity. Psychiatric disturbance [place] use Patient does have some subtle signs [...] of mental health issues documented in this encounterSamaritan [id number] Instructions Includes: Instructions for all patient encounters Instructions to patient Intervention and counseling on cessation of tobacco use, 3-10 minutes Discussed medication and nicotine replacement for tobacco cessation Last Documented On 3 8:54AM ; [facility] Intervention and counseling on cessation of tobacco use, 3-10 minutes Discussed medication and nicotine replacement for tobacco cessation Last Documented On 2 1:56PM ; [facility] Intervention and counseling on cessation of tobacco use, 3-10 minutes Last Documented On 0 2:07PM ; [facility] Return to the clinic if cond ition worsens or new symptoms arise Last Documented On 9 1:59PM ; [facility] Intervention and counseling on cessation of tobacco use, 3-10 minutes Last Documented On 9 10:39AM ; [facility] Education and Decision Aids were provided during visit for: Discussed nutritional needs teach healthy choices including fruits and vegetables Last Documented On 4 8:44AM ; [facility] Patient education about a pr oper diet Last Documented On 4 8:44AM ; [facility] Discussed concerns about exe rcise : promote physical activity Last Documented On 4 8:44AM ; [facility] Discussed nutritional needs teach healthy choices including fruits and vegetables Last Documented On 4 1:26PM ; [facility] Patient education about a pr oper diet Last Documented On 4 1:26PM ; [facility] Discussed concerns about exe rcise : promote physical activity Last Documented On 4 1:26PM ; [facility] Discussed nutritional needs teach healthy choices including fruits and vegetables Last Documented On 3 10:55AM ; [facility] Patient education about a pr oper diet Last Documented On 3 10:55AM ; [facility] Discussed concerns about exe rcise : promote physical activity Last Documented On 3 10:55AM ; [facility] Discussed nutritional needs teach healthy choices including fruits and vegetables Last Documented On 3 9:37AM ; [facility] Patient education about a pr oper diet Last Documented On 3 9:37AM ; [facility] Discussed concerns about exe rcise : promote physical activity Last Documented On 3 9:37AM ; [facility] Not requesting contraception Last Documented On 3 9:37AM ; [facility] Discussed nutritional needs teach healthy choices including fruits and vegetables Last Documented On 3 9:20AM ; [facility] Patient education about a pr oper diet Last Documented On 3 9:20AM ; [facility] Discussed concerns about exe rcise : promote physical activity Last Documented On 3 9:20AM ; [facility] Discussed nutritional needs teach healthy choices including fruits and vegetables Last Documented On 3 2:02PM ; [facility] Patient education about a pr oper diet Last Documented On 3 2:02PM ; [facility] Discussed concerns about exe rcise : promote physical activity Last Documented On 3 2:02PM ; [facility] Discussed nutritional needs teach healthy choices including fruits and vegetables Last Documented On 3 8:32AM ; [facility] Patient education about a pr oper diet Last Documented On 3 8:32AM ; [facility] Discussed concerns about exe rcise : promote physical activity Last Documented On 3 8:32AM ; [facility] Discussed nutritional needs teach healthy choices including fruits and vegetables Last Documented On 3 11:28AM ; [facility] Patient education about a pr oper diet Last Documented On 3 11:28AM ; [facility] Discussed concerns about exe rcise : promote physical activity Last Documented On 3 11:28AM ; [facility] Discussed nutritional needs teach healthy choices including fruits and vegetables Last Documented On 2 2:01PM ; [facility] Patient education about a pr oper diet Last Documented On 2 2:01PM ; [facility] Discussed concerns about exe rcise : promote physical activity Last Documented On 2 2:01PM ; [facility] Discussed nutritional needs teach healthy choices including fruits and vegetables Last Documented On 2 2:11PM ; [facility] Patient education about a pr oper diet Last Documented On 2 2:11PM ; [facility] Discussed concerns about exe rcise : promote physical activity Last Documented On 2 2:11PM ; [facility] Discussed current self-care methods/coping skills. ~Validated and normalized pt's feelings while assisting patient process recent events. ~Discussed ongoing counseling. ~Discussed lifestyle changes to address chronic illness. ~Supported patient's personal health goals ~wordfinds. walk, read, eat, enjoy my best friesnd Last Documented On 2 5:54PM ; [facility] Discussed nutritional needs teach healthy choices including fruits and vegetables Last Documented On 2 10:04AM ; [facility] Patient education about a pr oper diet Last Documented On 2 10:04AM ; [facility] Discussed concerns about exe rcise : promote physical activity Last Documented On 2 10:04AM ; [facility] Discussed nutritional needs teach healthy choices including fruits and vegetables Last Documented On 2 1:25PM ; [facility] Patient education about a pr oper diet Last Documented On 2 1:25PM ; [facility] Discussed concerns about exe rcise : promote physical activity Last Documented On 2 1:25PM ; [facility] Discussed nutritional needs teach healthy choices including fruits and vegetables Last Documented On 1 10:08AM ; [facility] Patient education about a pr oper diet Last Documented On 1 10:08AM ; [facility] Discussed concerns about exe rcise : promote physical activity Last Documented On 1 10:08AM ; [facility] Discussed nutritional needs teach healthy choices including fruits and vegetables Last Documented On 1 1:12PM ; [facility] Patient education about a pr oper diet Last Documented On 1 1:12PM ; [facility] Patient education about a pr oper diet Last Documented On 1 1:30PM ; [facility] Patient education about meal planning Last Documented On 1 1:30PM ; [facility] Education about changing eat ing habits Last Documented On 1 1:30PM ; [facility] Patient education about high fiber diet Last Documented On 1 1:30PM ; [facility] Patient education about low fat diet Last Documented On 1 1:30PM ; [facility] Patient education about low cholesterol diet Last Documented On 1 1:30PM ; [facility] Patient education about low carbohydrate diet Last Documented On 1 1:30PM ; [facility] Patient education about high protein diet Last Documented On 1 1:30PM ; [facility] Discussed concerns about exe rcise : promote physical activity Last Documented On 1 1:12PM ; [facility] Education/counseling conduct ed by pharmacist Last Documented On 0 1:39PM ; [facility] Vaccination counseling Last Documented On 0 1:39PM ; [facility] Discussed concerns about exe rcise : promote physical activity Last Documented On 0 2:16PM ; [facility] Patient goals decrease short ness of breath episodes Last Documented On 0 2:11PM ; [facility] Patient states that she uses her [...] recently Last Documented On 0 2:24PM ; [facility] Patient education about a pr oper diet Last Documented On 0 2:54PM ; [facility] Patient education about meal planning Last Documented On 0 2:54PM ; [facility] Education about changing eat ing habits Last Documented On 0 2:54PM ; [facility] Patient education about high fiber diet Last Documented On 0 2:54PM ; [facility] Patient education about low fat diet Last Documented On 0 2:54PM ; [facility] Patient education about low cholesterol diet Last Documented On 0 2:54PM ; [facility] Patient education about low carbohydrate diet Last Documented On 0 2:54PM ; [facility] Patient education about high protein diet Last Documented On 0 2:54PM ; [facility] Discussed nutritional needs teach healthy choices including fruits and vegetables Last Documented On 0 11:11AM ; [facility] Patient education about a pr oper diet Last Documented On 0 11:11AM ; [facility] Patient education about a pr oper diet Last Documented On 0 11:28AM ; [facility] Patient education about meal planning Last Documented On 0 11:28AM ; [facility] Education about changing eat ing habits Last Documented On 0 11:28AM ; [facility] Patient education about high fiber diet Last Documented On 0 11:28AM ; [facility] Patient education about low fat diet Last Documented On 0 11:28AM ; [facility] Patient education about low cholesterol diet Last Documented On 0 11:28AM ; [facility] Patient education about low carbohydrate diet Last Documented On 0 11:28AM ; [facility] Patient education about high protein diet Last Documented On 0 11:28AM ; [facility] Discussed concerns about exe rcise : promote physical activity Last Documented On 0 11:11AM ; [facility] Education/counseling conduct ed by pharmacist Last Documented On 0 1:41PM ; [facility] Patient states that she lonnie gonzalez [...] own Last Documented On 0 2:08PM ; [facility] Education/counseling conduct ed by pharmacist Last Documented On 9 1:12PM ; [facility] Patient states that she lonnie gonzalez has issues with her inhaler with the spacer. Patient did not bring in inhaler or spacer. Patient was told to bring in inhalers at next scheduled visit for pharmacist to assess inhalation technique. Patient is agreeable Last Documented On 9 1:13PM ; [facility] Patient goals Start using ch deon to help with inhaling dulera Last Documented On 9 2:40PM ; [facility] Patient states that she is g [...] vaccines Last Documented On 9 2:51PM ; [facility] Discussed nutritional needs teach healthy choices including fruits and vegetables Last Documented On 9 9:29AM ; [facility] Patient education about a pr oper diet Last Documented On 9 9:29AM ; [facility] Discussed concerns about exe rcise : promote physical activity Last Documented On 9 9:29AM ; [facility] Work Phone: 1(844) 516-255608-26-2024 Evaluation note Includes: Assessments for all patient encounters Findings Encounter Date [Z68.25 - Body mass index [B [place]] 25.0-25.9, adult] assessment of body mass index Medical Established Patient with Vida Culp [facility] 01/27/2024 Last Documented On 4 9:12AM ; [facility] Bipolar disorder NOS Medical Established Patient with Vida Culp [facility] 01/27/2024 Last Documented On 4 9:12AM ; [facility] Chronic obstructive pulmonary disease Me dical Established Patient with Vida Culp [facility] 01/27/2024 Last Documented On 4 9:12AM ; [facility] Disturbance of gait Medical Established Patient with Vida Culp [facility] 01/27/2024 Last Documented On 4 9:12AM ; [facility] Tremor Medical Established Patient with Vida Culp [facility] 01/27/2024 Last Documented On 4 9:12AM ; [facility] Visit for: screening for depression [facility] Established Patient with Vida Culp [facility] 01/27/2024 Last Documented On 4 9:12AM ; [facility] [R26.89 - Other abnormalitie s of gait and mobility] staggering gait Chart Update with Karla Clark [facility] 11/15/2023 Last Documented On 4 12:07PM ; [facility] [F17.210 - Nicotine dependen ce, cigarettes, uncomplicated] continuous dependence on cigarette smoking Medical Established Patient with Karla Clark [facility] 10/04/2023 Last Documented On 4 6:30PM ; [facility] [Z12.11 - Encounter for scre ening for malignant neoplasm of colon] Colon screening Medical Established Patient with Karla Clark [facility] 10/04/2023 Last Documented On 4 6:30PM ; [facility] [Z68.25 - Body mass index [B [place]] 25.0-25.9, adult] assessment of body mass index Medical Established Patient with Karla Clark [facility] 10/04/2023 Last Documented On 4 6:30PM ; [facility] Diabetes Risk Test Score was five score 10/04/2023 Medical Established Patient with Karla Clark [facility] 10/04/2023 Last Documented On 4 6:30PM ; [facility] Encounter for Immunization Medical Estab lished Patient with Karla Clark [facility] 10/04/2023 Last Documented On 4 6:30PM ; [facility] [D48.5 - Neoplasm of uncerta in behavior of skin] skin neoplasm of uncertain behavior Medical Established Patient with Karla Clark [facility] 05/22/2023 Last Documented On 3 1:30PM ; [facility] [Z68.24 - Body mass index [B [place]] 24.0-24.9, adult] assessment of body mass index Medical Established Patient with Karla Clark [facility] 05/22/2023 Last Documented On 3 1:30PM ; [facility] Assessment of tobacco use Medical Establ ished Patient with Karla Clark [facility] 05/22/2023 Last Documented On 3 1:30PM ; [facility] [R30.0 - Dysuria] Dysuria Chart Update with Gary Clark [facility] 03/21/2023 Last Documented On 3 11:27AM ; [facility] [Z12.39 - Encounter for othe r screening for malignant neoplasm of breast] visit for: screening for malignant breast neoplasm Medical Established Patient with Aaron Whitaker [facility] 02/28/2023 Last Documented On 3 9:51AM ; [facility] [Z68.24 - Body mass index [B [place]] 24.0-24.9, adult] assessment of body mass index Medical Established Patient with Aaron Whitaker [employer] [employer] [employer] 02/28/2023 Last Documented On 3 9:51AM ; [facility] Assessment of tobacco use Medical Establ ished Patient with Aaron Whitaker [employer] 02/28/2023 Last Documented On 3 9:51AM ; [facility] Chronic obstructive pulmonary disease Me dical Established Patient with Aaron Whitaker [employer] 02/28/2023 Last Documented On 3 9:51AM ; [facility] [J20.9 - Acute bronchitis, unspecified] acute bronchitis Medical Established Patient with Karla Clark [employer] 11/19/2022 Last Documented On 3 10:15AM ; [facility] [M79.621 - Pain in right upp er arm] pain in upper arm Medical Established Patient with Karla Clark [employer] 11/19/2022 Last Documented On 3 10:15AM ; [facility] [Z68.23 - Body mass index [B [place]] 23.0-23.9, adult] assessment of body mass index Medical Established Patient with Karla Clark [employer] 11/19/2022 Last Documented On 3 10:15AM ; [facility] [M79.601 - Pain in right arm ] pain in right arm Medical Established Patient with Karla Clark [employer] 09/18/2022 Last Documented On 3 2:33PM ; [facility] [Z68.24 - Body mass index [B [place]] 24.0-24.9, adult] assessment of body mass index Medical Established Patient with Karla Clark [employer] 09/18/2022 Last Documented On 3 2:33PM ; [facility] Assessment of tobacco use Medical Establ ished Patient with Karla Clark [employer] 09/18/2022 Last Documented On 3 2:33PM ; [facility] [M25.569 - Pain in unspecifi ed knee] arthralgia of knee / patella / tibia / fibula Medical Established Patient with Karla Clark [employer] 08/27/2022 Last Documented On 3 9:20AM ; [facility] [Z68.24 - Body mass index [B [place]] 24.0-24.9, adult] assessment of body mass index Medical Established Patient with Karla Clark [employer] 08/27/2022 Last Documented On 3 9:20AM ; [facility] Intervention and counseling on cessation of tobacco use, 3-10 minutes Discussed medication and nicotine replacement for tobacco cessation Medical Established Patient with Karla Clark [employer] 08/27/2022 Last Documented On 3 9:20AM ; [facility] Nicotine dependence Medical Established Patient with Karla Clark [employer] 08/27/2022 Last Documented On 3 9:20AM ; [facility] Visit for routine adult H&P without abnormal findings Medical Established Patient with aKrla Clark [employer] 08/27/2022 Last Documented On 3 9:20AM ; [facility] [H92.02 - Otalgia, left ear] earache Med ical Established Patient with Karla Clark [employer] 06/18/2022 Last Documented On 3 12:11PM ; [facility] [M79.604 - Pain in right leg ] pain in right leg Medical Established Patient with Karla Calrk [employer] 06/18/2022 Last Documented On 3 12:11PM ; [facility] [Z68.24 - Body mass index [B [place]] 24.0-24.9, adult] assessment of body mass index Medical Established Patient with Karla Clark [employer] 06/18/2022 Last Documented On 3 12:11PM ; [facility] Assessment of tobacco use Medical Establ ished Patient with Karla Clark [employer] 06/18/2022 Last Documented On 3 12:11PM ; [facility] Diabetes Risk Test Score was four score 06/18/2022 Medical Established Patient with Karla Clark [employer] 06/18/2022 Last Documented On 3 12:11PM ; [facility] Schizoaffective disorder Established Patient with Yin Feliz [facility] 03/20/2022 Last Documented On 2 12:13AM ; [facility] No cough Medical Established Patient with Karla Amber [employer] 12/20/2021 Last Documented On 2 3:12PM ; [facility] Visit for: screening for hum an immunodeficiency virus Medical Established Patient with Karla Amber [employer] 12/20/2021 Last Documented On 2 3:12PM ; [facility] Z68.24 - Body mass index [BM I] 24.0-24.9, adult Medical Established Patient with Karla Amber [employer] 12/20/2021 Last Documented On 2 3:12PM ; [facility] Bipolar disorder NOS Established Patient with Yin Feliz [facility] 11/03/2021 Last Documented On 2 7:00PM ; [facility] Bipolar schizoaffective disorder BH Esta blished Patient with Yin Feliz [facility] 11/03/2021 Last Documented On 2 7:00PM ; [facility] PLAN Medical Established Patient with Don Pino MD 11/03/2021 Last Documented On 2 10:40AM ; [facility] Abnormal electrocardiogram Medical Estab lished Patient with Don Pino MD 11/03/2021 Last Documented On 2 10:40AM ; [facility] Z68.24 - Body mass index [BM I] 24.0-24.9, adult Medical Established Patient with Don Pino MD 11/03/2021 Last Documented On 2 10:40AM ; [facility] Cough Medical Established Patient with Karlajulius Floresen MINUTE CLERK FOR BASIC TRAFFIC 07/28/2021 Last Documented On 2 2:01PM ; [facility] Intervention and counseling on cessation of tobacco use, 3-10 minutes Discussed medication and nicotine replacement for tobacco cessation Medical Established Patient with Karla Amber MINUTE CLERK FOR BASIC TRAFFIC 07/28/2021 Last Documented On 2 2:01PM ; [facility] Nicotine dependence Medical Established Patient with Karla Amber MINUTE CLERK FOR BASIC TRAFFIC 07/28/2021 Last Documented On 2 2:01PM ; [facility] Z68.24 - Body mass index [BM I] 24.0-24.9, adult Medical Established Patient with Karla Amber MINUTE CLERK FOR BASIC TRAFFIC 07/28/2021 Last Documented On 2 2:01PM ; [facility] Assess Colon screening Medical Established Patie nt with Karla Amber MINUTE CLERK FOR BASIC TRAFFIC 05/08/2021 Last Documented On 1 10:59AM ; [facility] Diabetes Risk Test Score was four score 05/08/2021 Medical Established Patient with Karla Amber MINUTE CLERK FOR BASIC TRAFFIC 05/08/2021 Last Documented On 1 10:59AM ; [facility] Routine adult history and ph ysical (18-64 yrs) without abnormal findings Medical Established Patient with Karla Amber MINUTE CLERK FOR BASIC TRAFFIC 05/08/2021 Last Documented On 1 10:59AM ; [facility] Z68.24 - Body mass index [BM I] 24.0-24.9, adult Medical Established Patient with Karla Amber MINUTE CLERK FOR BASIC TRAFFIC 05/08/2021 Last Documented On 1 10:59AM ; [facility] Z68.24 - Body mass index [BM I] 24.0-24.9, adult Medical Established Patient with Karla Amber MINUTE CLERK FOR BASIC TRAFFIC 06/17/2020 Last Documented On 1 10:30AM ; [facility] Overweight Medical Established Patient with Karla Amber MINUTE CLERK FOR BASIC TRAFFIC 06/06/2020 Last Documented On 1 2:06PM ; [facility] Z68.25 - Body mass index [BM I] 25.0-25.9, adult Medical Established Patient with Karla Amber MINUTE CLERK FOR BASIC TRAFFIC 06/06/2020 Last Documented On 1 2:06PM ; [facility] Antiasthmatics [facility] Asthma Clinic-New with Karla Amber MINUTE CLERK FOR BASIC TRAFFIC 05/06/2020 Last Documented On 0 7:27PM ; [facility] Assessment of tobacco use [facility] Asthma Clinic-New with Karla Amber MINUTE CLERK FOR BASIC TRAFFIC 05/06/2020 Last Documented On 0 7:27PM ; [facility] Body mass index [facility] Asthma Clinic-New with Karla Amber MINUTE CLERK FOR BASIC TRAFFIC 05/06/2020 Last Documented On 0 7:27PM ; [facility] Chronic obstructive pulmonary disease CP S [facility]-New with Karlajulius Floresen MINUTE CLERK FOR BASIC TRAFFIC 05/06/2020 Last Documented On 0 7:27PM ; [facility] Overweight CPS [facility]-New with Karla Floresen MINUTE CLERK FOR BASIC TRAFFIC 05/06/2020 Last Documented On 0 7:27PM ; [facility] Z11.4 - Encounter for screen ing for human immunodeficiency virus [HIV] CPS [facility]-New with Karla Floresen MINUTE CLERK FOR BASIC TRAFFIC 05/06/2020 Last Documented On 0 7:27PM ; [facility] Diabetes Risk Test Score was three score 03/31/2020 Medical Established Patient with Karla Floresen MINUTE CLERK FOR BASIC TRAFFIC 03/31/2020 Last Documented On 0 3:22PM ; [facility] Overweight Medical Established Patient with Karlajulius Floresen MINUTE CLERK FOR BASIC TRAFFIC 03/31/2020 Last Documented On 0 3:22PM ; [facility] Z68.25 - Body mass index [BM I] 25.0-25.9, adult Medical Established Patient with Karla Clark MINUTE CLERK FOR BASIC TRAFFIC 03/31/2020 Last Documented On 0 3:22PM ; [facility] Encounter for Immunization Nurse Visit with Gary Clark MINUTE CLERK FOR BASIC TRAFFIC 03/14/2020 Last Documented On 0 5:11PM ; [facility] Body mass index Medical Established Patient with Karla Floresen MINUTE CLERK FOR BASIC TRAFFIC 02/26/2020 Last Documented On 0 1:18PM ; [facility] Overweight Medical Established Patient with Karla Amber MINUTE CLERK FOR BASIC TRAFFIC 02/26/2020 Last Documented On 0 1:18PM ; [facility] Overweight Medical Established Patient with Karla Floresen MINUTE CLERK FOR BASIC TRAFFIC 07/23/2019 Last Documented On 0 2:33PM ; [facility] Z68.27 - Body mass index (BM I) 27.0-27.9, adult Medical Established Patient with Karla Floresen MINUTE CLERK FOR BASIC TRAFFIC 07/23/2019 Last Documented On 0 2:33PM ; [facility] Occasional asthma CPS- Asthma Clinic- F/U with A french Clark MINUTE CLERK FOR BASIC TRAFFIC 06/05/2019 Last Documented On 0 7:04PM ; [facility] Overweight CPS- [facility] Clinic- F/U with Aim julius Clark MINUTE CLERK FOR BASIC TRAFFIC 06/05/2019 Last Documented On 0 7:04PM ; [facility] Z68.27 - Body mass index (BM I) 27.0-27.9 adult CPS- [facility] Clinic- F/U with Karla Clark MINUTE CLERK FOR BASIC TRAFFIC 06/05/2019 Last Documented On 0 7:04PM ; [facility] Occasional asthma CPS Med Review with Karlajulius dinh MINUTE CLERK FOR BASIC TRAFFIC 04/23/2019 Last Documented On 9 4:01PM ; [facility] Overweight CPS Med Review with Karlajulius Clark MINUTE CLERK FOR BASIC TRAFFIC 04/23/2019 Last Documented On 9 4:01PM ; [facility] Z68.27 - Body mass index (BM I) 27.0-27.9 adult CPS Med Review with Karla Floresen MINUTE CLERK FOR BASIC TRAFFIC 04/23/2019 Last Documented On 9 4:01PM ; [facility] Acute pharyngitis Medical Established Patient wi th Brandy Serranoer MINUTE CLERK FOR BASIC TRAFFIC 04/15/2019 Last Documented On 9 12:31PM ; [facility] Asthmatic bronchitis with ac [place] exacerbation Medical Established Patient with Brandy Warren MINUTE CLERK FOR BASIC TRAFFIC 04/15/2019 Last Documented On 9 12:31PM ; [facility] Fagerstrom Score was two Medical Established Pat ient with Brandy Warren MINUTE CLERK FOR BASIC TRAFFIC 04/15/2019 Last Documented On 9 12:31PM ; [facility] PHQ-9: total score was three 04/15/2019 Medical Established Patient with Brandy Warren MINUTE CLERK FOR BASIC TRAFFIC 04/15/2019 Last Documented On 9 12:31PM ; [facility] Body mass index Medical Established Patient with Karlajulius Floresen MINUTE CLERK FOR BASIC TRAFFIC 03/05/2019 Last Documented On 9 10:27AM ; [facility] Diabetes Risk Test Score was three score Medical Established Patient with Karla Amber MINUTE CLERK FOR BASIC TRAFFIC 03/05/2019 Last Documented On 9 10:27AM ; [facility] Overweight Medical Established Patient with Karla Amber MINUTE CLERK FOR BASIC TRAFFIC 03/05/2019 Last Documented On 9 10:27AM ; [facility] Z68.28 - Body mass index (BM I) 28.0-28.9, adult Medical Established Patient with Karla Amber MINUTE CLERK FOR BASIC TRAFFIC 12/22/2018 Last Documented On 9 10:32AM ; [facility] Assess routine adult history and physical (18 - 64 yrs) Medical Established Patient with Karla Amber MINUTE CLERK FOR BASIC TRAFFIC 11/06/2018 Last Documented On 9 2:26PM ; [facility] Overweight Medical Established Patient with Karla Amber MINUTE CLERK FOR BASIC TRAFFIC 11/06/2018 Last Documented On 9 2:26PM ; [facility] Z68.28 - Body mass index (BM I) 28.0-28.9, adult Medical Established Patient with Karla Amber MINUTE CLERK FOR BASIC TRAFFIC 11/06/2018 Last Documented On 9 2:26PM ; [facility] Assess dysphagia Medical Established Patient wit h Karla Amber MINUTE CLERK FOR BASIC TRAFFIC 09/11/2018 Last Documented On 9 10:53AM ; [facility] Assess routine adult history and physical (18 - 64 yrs) Medical Established Patient with Karla Amber MINUTE CLERK FOR BASIC TRAFFIC 09/11/2018 Last Documented On 9 10:53AM ; [facility] Assess primary insomnia with sleep apnea Medical Established Patient with Karla Amber MINUTE CLERK FOR BASIC TRAFFIC 09/04/2018 Last Documented On 9 2:23PM ; [facility] Assess routine adult history and physical (18 - 64 yrs) Medical Established Patient with Karla Amber MINUTE CLERK FOR BASIC TRAFFIC 09/04/2018 Last Documented On 9 2:23PM ; [facility] Overweight Medical Established Patient with Karla Amber MINUTE CLERK FOR BASIC TRAFFIC 09/04/2018 Last Documented On 9 2:23PM ; [facility] Z68.29 - Body mass index (BM I) 29.0-29.9, adult Medical Established Patient with Karla Amber MINUTE CLERK FOR BASIC TRAFFIC 09/04/2018 Last Documented On 9 2:23PM ; [facility] Assess vaginal candidiasis Medical Estab lished Patient with Karla Amber MINUTE CLERK FOR BASIC TRAFFIC 07/31/2018 Last Documented On 9 2:12PM ; [facility] Work Phone: 1(570) 452-625708-26-2024 Evaluation note Includes: Assessments for all patient encounters Findings Encounter Date [Z68.25 - Body mass index [B AZ] 25.0-25.9, adult] assessment of body mass index Medical Established Patient with Vida Culp MINUTE CLERK FOR BASIC TRAFFIC 01/27/2024 Last Documented On 4 9:12AM ; [facility] Bipolar disorder NOS Medical Established Patient with Vida Culp [facility] 01/27/2024 Last Documented On 4 9:12AM ; [facility] Chronic obstructive pulmonary disease Me dical Established Patient with Vida Culp [facility] 01/27/2024 Last Documented On 4 9:12AM ; [facility] Disturbance of gait Medical Established Patient with Vida Culp [facility] 01/27/2024 Last Documented On 4 9:12AM ; [facility] Tremor Medical Established Patient with Vida Culp [facility] 01/27/2024 Last Documented On 4 9:12AM ; [facility] Visit for: screening for depression [facility]i [facility] Established Patient with Vida Culp [facility] 01/27/2024 Last Documented On 4 9:12AM ; [facility] [R26.89 - Other abnormalitie s of gait and mobility] staggering gait Chart Update with Karla Clark [facility] 11/15/2023 Last Documented On 4 12:07PM ; [facility] [F17.210 - Nicotine dependen ce, cigarettes, uncomplicated] continuous dependence on cigarette smoking Medical Established Patient with Karla Clark [facility] 10/04/2023 Last Documented On 4 6:30PM ; [facility] [Z12.11 - Encounter for scre ening for malignant neoplasm of colon] Colon screening Medical Established Patient with Karla Clark [facility] 10/04/2023 Last Documented On 4 6:30PM ; [facility] [Z68.25 - Body mass index [B AZ] 25.0-25.9, adult] assessment of body mass index Medical Established Patient with Karla Clark [facility] 10/04/2023 Last Documented On 4 6:30PM ; [facility] Diabetes Risk Test Score was five score 10/04/2023 Medical Established Patient with Karla Clark MINUTE CLERK [employer]FF[employer] 10/04/2023 Last Documented On 4 6:30PM ; [facility] Encounter for Immunization Medical Estab lished Patient with Karla Clark MINUTE CLERK FOR BASIC TRAFFIC 10/04/2023 Last Documented On 4 6:30PM ; [facility] [D48.5 - Neoplasm of uncerta in behavior of skin] skin neoplasm of uncertain behavior Medical Established Patient with Karla Clark MINUTE CLERK FOR BASIC TRAFFIC 05/22/2023 Last Documented On 3 1:30PM ; [facility] [Z68.24 - Body mass index [B AZ] 24.0-24.9, adult] assessment of body mass index Medical Established Patient with Karla Clark MINUTE CLERK [employer] BASIC [employer]FFIC 05/22/2023 Last Documented On 3 1:30PM ; [facility] Assessment of tobacco use Medical Establ ished Patient with Karla Clark MINUTE CLERK FOR BASIC TRAFFIC 05/22/2023 Last Documented On 3 1:30PM ; [facility] [R30.0 - Dysuria] Dysuria Chart Update with Gary Clark MINUTE CLERK FOR BASIC TRAFFIC 03/21/2023 Last Documented On 3 11:27AM ; [facility] [Z12.39 - Encounter for othe r screening for malignant neoplasm of breast] visit for: screening for malignant breast neoplasm Medical Established Patient with Aaron Whitaker MINUTE CLERK FOR BASIC TRAFFIC 02/28/2023 Last Documented On 3 9:51AM ; [facility] [Z68.24 - Body mass index [B AZ] 24.0-24.9, adult] assessment of body mass index Medical Established Patient with Aaron Garcia Penix MINUTE CLERK [employer] BASIC TRAFFIC 02/28/2023 Last Documented On 3 9:51AM ; [facility] Assessment of tobacco use Medical Establ ished Patient with Lina Penix MINUTE CLERK FOR BASIC TRAFFIC 02/28/2023 Last Documented On 3 9:51AM ; [facility] Chronic obstructive pulmonary disease Me dical Established Patient with Lina Penix MINUTE CLERK FOR BASIC TRAFFIC 02/28/2023 Last Documented On 3 9:51AM ; [facility] [J20.9 - Acute bronchitis, unspecified] acute bronchitis Medical Established Patient with Karla Clark MINUTE CLERK [employer] BASIC [employer]FFIC 11/19/2022 Last Documented On 3 10:15AM ; [facility] [M79.621 - Pain in right upp er arm] pain in upper arm Medical Established Patient with Karla Clark MINUTE CLERK [employer] BASIC [employer]FFIC 11/19/2022 Last Documented On 3 10:15AM ; [facility] [Z68.23 - Body mass index [B AZ] 23.0-23.9, adult] assessment of body mass index Medical Established Patient with Karla Clark MINUTE CLERK FOR BASIC [employer]FFIC 11/19/2022 Last Documented On 3 10:15AM ; [facility] [M79.601 - Pain in right arm ] pain in right arm Medical Established Patient with Karla Clark MINUTE CLERK FOR BASIC [employer]FFIC 09/18/2022 Last Documented On 3 2:33PM ; [facility] [Z68.24 - Body mass index [B AZ] 24.0-24.9, adult] assessment of body mass index Medical Established Patient with Karla Clark MINUTE CLERK [employer] BASIC [employer]FFIC 09/18/2022 Last Documented On 3 2:33PM ; [facility] Assessment of tobacco use Medical Establ ished Patient with Karla Clark MINUTE CLERK FOR BASIC TRAFFIC 09/18/2022 Last Documented On 3 2:33PM ; [facility] [M25.569 - Pain in unspecifi ed knee] arthralgia of knee / patella / tibia / fibula Medical Established Patient with Karla Clark MINUTE CLERK FOR BASIC TRAFFIC 08/27/2022 Last Documented On 3 9:20AM ; [facility] [Z68.24 - Body mass index [B AZ] 24.0-24.9, adult] assessment of body mass index Medical Established Patient with Karla Clark MINUTE CLERK FOR BASIC TRAFFIC 08/27/2022 Last Documented On 3 9:20AM ; [facility] Intervention and counseling on cessation of tobacco use, 3-10 minutes Discussed medication and nicotine replacement for tobacco cessation Medical Established Patient with Karla Clark MINUTE CLERK FOR BASIC TRAFFIC 08/27/2022 Last Documented On 3 9:20AM ; [facility] Nicotine dependence Medical Established Patient with Karla Amber MINUTE CLERK FOR BASIC TRAFFIC 08/27/2022 Last Documented On 3 9:20AM ; [facility] Visit for routine adult H&P without abnormal findings Medical Established Patient with Karla Clark MINUTE CLERK FOR BASIC TRAFFIC 08/27/2022 Last Documented On 3 9:20AM ; [facility] [H92.02 - Otalgia, left ear] earache Med ical Established Patient with Karla Clark MINUTE CLERK FOR BASIC TRAFFIC 06/18/2022 Last Documented On 3 12:11PM ; [facility] [M79.604 - Pain in right leg ] pain in right leg Medical Established Patient with Karla Clark MINUTE CLERK FOR BASIC TRAFFIC 06/18/2022 Last Documented On 3 12:11PM ; [facility] [Z68.24 - Body mass index [B AZ] 24.0-24.9, adult] assessment of body mass index Medical Established Patient with Karla Clark MINUTE CLERK FOR BASIC TRAFFIC 06/18/2022 Last Documented On 3 12:11PM ; [facility] Assessment of tobacco use Medical Establ ished Patient with Karla Clark MINUTE CLERK FOR BASIC TRAFFIC 06/18/2022 Last Documented On 3 12:11PM ; [facility] Diabetes Risk Test Score was four score 06/18/2022 Medical Established Patient with Karla Clark MINUTE CLERK FOR BASIC TRAFFIC 06/18/2022 Last Documented On 3 12:11PM ; [facility] Schizoaffective disorder Established Patient with Yin Feliz LPCC-S 03/20/2022 Last Documented On 2 12:13AM ; [facility] No cough Medical Established Patient with Karla Clark MINUTE CLERK FOR BASIC TRAFFIC 12/20/2021 Last Documented On 2 3:12PM ; [facility] Visit for: screening for hum an immunodeficiency virus Medical Established Patient with Karla Clark MINUTE CLERK FOR BASIC TRAFFIC 12/20/2021 Last Documented On 2 3:12PM ; [facility] Z68.24 - Body mass index [BM I] 24.0-24.9, adult Medical Established Patient with Karla Clark MINUTE CLERK FOR BASIC [employer]FFIC 12/20/2021 Last Documented On 2 3:12PM ; [facility] Bipolar disorder NOS BH Established Patient with Yin Feliz LPCC-S 11/03/2021 Last Documented On 2 7:00PM ; [facility] Bipolar schizoaffective disorder BH Esta blished Patient with Yin Boswells LPCC-S 11/03/2021 Last Documented On 2 7:00PM ; [facility] PLAN Medical Established Patient with Don Pino MD 11/03/2021 Last Documented On 2 10:40AM ; [facility] Abnormal electrocardiogram Medical Estab lished Patient with Don Pino MD 11/03/2021 Last Documented On 2 10:40AM ; [facility] Z68.24 - Body mass index [BM I] 24.0-24.9, adult Medical Established Patient with Don Pino MD 11/03/2021 Last Documented On 2 10:40AM ; [facility] Cough Medical Established Patient with Karla Amber MINUTE CLERK FOR BASIC TRAFFIC 07/28/2021 Last Documented On 2 2:01PM ; [facility] Intervention and counseling on cessation of tobacco use, 3-10 minutes Discussed medication and nicotine replacement for tobacco cessation Medical Established Patient with Karla Amber MINUTE CLERK FOR BASIC TRAFFIC 07/28/2021 Last Documented On 2 2:01PM ; [facility] Nicotine dependence Medical Established Patient with Karla Amber MINUTE CLERK FOR BASIC TRAFFIC 07/28/2021 Last Documented On 2 2:01PM ; [facility] Z68.24 - Body mass index [BM I] 24.0-24.9, adult Medical Established Patient with Karla Amber MINUTE CLERK FOR BASIC TRAFFIC 07/28/2021 Last Documented On 2 2:01PM ; [facility] Assess Colon screening Medical Established Patie nt with Karla Amber MINUTE CLERK FOR BASIC TRAFFIC 05/08/2021 Last Documented On 1 10:59AM ; [facility] Diabetes Risk Test Score was four score 05/08/2021 Medical Established Patient with Karla Amber MINUTE CLERK FOR BASIC TRAFFIC 05/08/2021 Last Documented On 1 10:59AM ; [facility] Routine adult history and ph ysical (18-64 yrs) without abnormal findings Medical Established Patient with Karla Amber MINUTE CLERK FOR BASIC TRAFFIC 05/08/2021 Last Documented On 1 10:59AM ; [facility] Z68.24 - Body mass index [BM I] 24.0-24.9, adult Medical Established Patient with Karla Amber MINUTE CLERK FOR BASIC TRAFFIC 05/08/2021 Last Documented On 1 10:59AM ; [facility] Z68.24 - Body mass index [BM I] 24.0-24.9, adult Medical Established Patient with Karla Amber MINUTE CLERK FOR BASIC TRAFFIC 06/17/2020 Last Documented On 1 10:30AM ; [facility] Overweight Medical Established Patient with Karla Amber MINUTE CLERK FOR BASIC TRAFFIC 06/06/2020 Last Documented On 1 2:06PM ; [facility] Z68.25 - Body mass index [BM I] 25.0-25.9, adult Medical Established Patient with Karla Amber MINUTE CLERK FOR BASIC TRAFFIC 06/06/2020 Last Documented On 1 2:06PM ; [facility] Antiasthmatics [facility] Asthma Clinic-New with Karla Amber MINUTE CLERK FOR BASIC TRAFFIC 05/06/2020 Last Documented On 0 7:27PM ; [facility] Assessment of tobacco use CPS [facility]-New with Karla Amber MINUTE CLERK FOR BASIC TRAFFIC 05/06/2020 Last Documented On 0 7:27PM ; [facility] Body mass index [facility] Asthma Clinic-New with Akrla Amber MINUTE CLERK FOR BASIC TRAFFIC 05/06/2020 Last Documented On 0 7:27PM ; [facility] Chronic obstructive pulmonary disease CP S [facility]-New with Karla Amber MINUTE CLERK FOR BASIC TRAFFIC 05/06/2020 Last Documented On 0 7:27PM ; [facility] Overweight CPS [facility]-New with Karla Amber MINUTE CLERK FOR BASIC TRAFFIC 05/06/2020 Last Documented On 0 7:27PM ; [facility] Z11.4 - Encounter for screen ing for human immunodeficiency virus [HIV] CPS [facility]-New with Karla Amber MINUTE CLERK FOR BASIC TRAFFIC 05/06/2020 Last Documented On 0 7:27PM ; [facility] Diabetes Risk Test Score was three score 03/31/2020 Medical Established Patient with Karla Amber MINUTE CLERK FOR BASIC TRAFFIC 03/31/2020 Last Documented On 0 3:22PM ; [facility] Overweight Medical Established Patient with Karla Clark MINUTE CLERK FOR BASIC TRAFFIC 03/31/2020 Last Documented On 0 3:22PM ; [facility] Z68.25 - Body mass index [BM I] 25.0-25.9, adult Medical Established Patient with Karla Clark MINUTE CLERK FOR BASIC TRAFFIC 03/31/2020 Last Documented On 0 3:22PM ; [facility] Encounter for Immunization Nurse Visit with Gary Clark MINUTE CLERK FOR BASIC TRAFFIC 03/14/2020 Last Documented On 0 5:11PM ; [facility] Body mass index Medical Established Patient with Karla Floresen MINUTE CLERK FOR BASIC TRAFFIC 02/26/2020 Last Documented On 0 1:18PM ; [facility] Overweight Medical Established Patient with Karla Floresen MINUTE CLERK FOR BASIC TRAFFIC 02/26/2020 Last Documented On 0 1:18PM ; [facility] Overweight Medical Established Patient with Karla Clark MINUTE CLERK FOR BASIC TRAFFIC 07/23/2019 Last Documented On 0 2:33PM ; [facility] Z68.27 - Body mass index (BM I) 27.0-27.9, adult Medical Established Patient with Karla Clark MINUTE CLERK FOR BASIC TRAFFIC 07/23/2019 Last Documented On 0 2:33PM ; [facility] Occasional asthma CPS- Asthma Clinic- F/U with A french Clark MINUTE CLERK FOR BASIC TRAFFIC 06/05/2019 Last Documented On 0 7:04PM ; [facility] Overweight CPS- [facility] Clinic- F/U with Alta Clark MINUTE CLERK FOR BASIC TRAFFIC 06/05/2019 Last Documented On 0 7:04PM ; [facility] Z68.27 - Body mass index (BM I) 27.0-27.9 adult CPS- [facility]- F/U with Karla Floresen MINUTE CLERK FOR BASIC TRAFFIC 06/05/2019 Last Documented On 0 7:04PM ; [facility] Occasional asthma CPS Med Review with Karla Flores en MINUTE CLERK FOR BASIC TRAFFIC 04/23/2019 Last Documented On 9 4:01PM ; [facility] Overweight CPS Med Review with Karla Floresen MINUTE CLERK FOR BASIC TRAFFIC 04/23/2019 Last Documented On 9 4:01PM ; [facility] Z68.27 - Body mass index (BM I) 27.0-27.9 adult CPS Med Review with Karla Amber MINUTE CLERK FOR BASIC TRAFFIC 04/23/2019 Last Documented On 9 4:01PM ; [facility] Acute pharyngitis Medical Established Patient wi th Brandy Kelley MINUTE CLERK FOR BASIC TRAFFIC 04/15/2019 Last Documented On 9 12:31PM ; [facility] Asthmatic bronchitis with ac [place] exacerbation Medical Established Patient with Brandy Warren MINUTE CLERK FOR BASIC TRAFFIC 04/15/2019 Last Documented On 9 12:31PM ; [facility] Fagerstrom Score was two Medical Established Pat ient with Brandy Warren MINUTE CLERK FOR BASIC TRAFFIC 04/15/2019 Last Documented On 9 12:31PM ; [facility] PHQ-9: total score was three 04/15/2019 Medical Established Patient with Brandy Warren MINUTE CLERK FOR BASIC TRAFFIC 04/15/2019 Last Documented On 9 12:31PM ; [facility] Body mass index Medical Established Patient with Karla Amber MINUTE CLERK FOR BASIC TRAFFIC 03/05/2019 Last Documented On 9 10:27AM ; [facility] Diabetes Risk Test Score was three score Medical Established Patient with Karla Amber MINUTE CLERK FOR BASIC TRAFFIC 03/05/2019 Last Documented On 9 10:27AM ; [facility] Overweight Medical Established Patient with Karla Amber MINUTE CLERK FOR BASIC TRAFFIC 03/05/2019 Last Documented On 9 10:27AM ; [facility] Z68.28 - Body mass index (BM I) 28.0-28.9, adult Medical Established Patient with Karla Amebr MINUTE CLERK FOR BASIC TRAFFIC 12/22/2018 Last Documented On 9 10:32AM ; [facility] Assess routine adult history and physical (18 - 64 yrs) Medical Established Patient with Karla Amber MINUTE CLERK FOR BASIC TRAFFIC 11/06/2018 Last Documented On 9 2:26PM ; [facility] Overweight Medical Established Patient with Karla Amber MINUTE CLERK FOR BASIC TRAFFIC 11/06/2018 Last Documented On 9 2:26PM ; [facility] Z68.28 - Body mass index (BM I) 28.0-28.9, adult Medical Established Patient with Karla Amber MINUTE CLERK [employer] BASIC TRAFFIC 11/06/2018 Last Documented On 9 2:26PM ; [facility] Assess dysphagia Medical Established Patient wit h Karla Clark MINUTE CLERK FOR BASIC TRAFFIC 09/11/2018 Last Documented On 9 10:53AM ; [facility] Assess routine adult history and physical (18 - 64 yrs) Medical Established Patient with Karla Clark MINUTE CLERK FOR BASIC TRAFFIC 09/11/2018 Last Documented On 9 10:53AM ; [facility] Assess primary insomnia with sleep apnea Medical Established Patient with Karlajulius Clark MINUTE CLERK FOR BASIC TRAFFIC 09/04/2018 Last Documented On 9 2:23PM ; [facility] Assess routine adult history and physical (18 - 64 yrs) Medical Established Patient with Karlajulius Clark MINUTE CLERK FOR BASIC TRAFFIC 09/04/2018 Last Documented On 9 2:23PM ; [facility] Overweight Medical Established Patient with Karlajulius Clark MINUTE CLERK FOR BASIC TRAFFIC 09/04/2018 Last Documented On 9 2:23PM ; [facility] Z68.29 - Body mass index (BM I) 29.0-29.9, adult Medical Established Patient with Karla Clark MINUTE CLERK FOR BASIC TRAFFIC 09/04/2018 Last Documented On 9 2:23PM ; [facility] Assess vaginal candidiasis Medical Estab lished Patient with Karla Clark MINUTE CLERK FOR BASIC TRAFFIC 07/31/2018 Last Documented On 9 2:12PM ; [facility] Work Phone: 1(345) 660-847708-26-2024 Evaluation note Includes: Assessments for all patient encounters Findings Encounter Date [Z68.25 - Body mass index [B AZ] 25.0-25.9, adult] assessment of body mass index Medical Established Patient with Vida Fritz MINUTE CLERK FOR BASIC TRAFFIC 01/27/2024 Last Documented On 4 9:12AM ; [facility] Bipolar disorder NOS Medical Established Patient with Vida Fritz MINUTE CLERK FOR BASIC TRAFFIC 01/27/2024 Last Documented On 4 9:12AM ; [facility] Chronic obstructive pulmonary disease Me dical Established Patient with Vida Fritz MINUTE CLERK [employer] BASIC TRAFFIC 01/27/2024 Last Documented On 4 9:12AM ; [facility] Disturbance of gait Medical Established Patient with Vida Culp [facility] 01/27/2024 Last Documented On 4 9:12AM ; [facility] Tremor Medical Established Patient with Vida Culp [facility] 01/27/2024 Last Documented On 4 9:12AM ; [facility] Visit for: screening for depression Medi rl Established Patient with Vida Culp [facility] 01/27/2024 Last Documented On 4 9:12AM ; [facility] [R26.89 - Other abnormalitie s of gait and mobility] staggering gait Chart Update with Karla Clark [facility] 11/15/2023 Last Documented On 4 12:07PM ; [facility] [F17.210 - Nicotine dependen ce, cigarettes, uncomplicated] continuous dependence on cigarette smoking Medical Established Patient with Karla Clark [facility] 10/04/2023 Last Documented On 4 6:30PM ; [facility] [Z12.11 - Encounter for scre ening for malignant neoplasm of colon] Colon screening Medical Established Patient with Karla Clark [facility] 10/04/2023 Last Documented On 4 6:30PM ; [facility] [Z68.25 - Body mass index [B AZ] 25.0-25.9, adult] assessment of body mass index Medical Established Patient with Karla Clark [facility] 10/04/2023 Last Documented On 4 6:30PM ; [facility] Diabetes Risk Test Score was five score 10/04/2023 Medical Established Patient with Karla Clark [facility] 10/04/2023 Last Documented On 4 6:30PM ; [facility] Encounter for Immunization Medical Estab lished Patient with Karla Clark [facility] 10/04/2023 Last Documented On 4 6:30PM ; [facility] [D48.5 - Neoplasm of uncerta in behavior of skin] skin neoplasm of uncertain behavior Medical Established Patient with Karla Clark [facility] 05/22/2023 Last Documented On 3 1:30PM ; [facility] [Z68.24 - Body mass index [B AZ] 24.0-24.9, adult] assessment of body mass index Medical Established Patient with Karla Clark MINUTE CLERK [employer]FF[employer] 05/22/2023 Last Documented On 3 1:30PM ; [facility] Assessment of tobacco use Medical Establ ished Patient with Karla Clark MINUTE CLERK FOR BASIC TRAFFIC 05/22/2023 Last Documented On 3 1:30PM ; [facility] [R30.0 - Dysuria] Dysuria Chart Update with Gary Clark MINUTE CLERK FOR BASIC TRAFFIC 03/21/2023 Last Documented On 3 11:27AM ; [facility] [Z12.39 - Encounter for othe r screening for malignant neoplasm of breast] visit for: screening for malignant breast neoplasm Medical Established Patient with Aaron Whitaker MINUTE CLERK FOR BASIC TRAFFIC 02/28/2023 Last Documented On 3 9:51AM ; [facility] [Z68.24 - Body mass index [B AZ] 24.0-24.9, adult] assessment of body mass index Medical Established Patient with Aaron Whitaker MINUTE CLERK FOR BASIC TRAFFIC 02/28/2023 Last Documented On 3 9:51AM ; [facility] Assessment of tobacco use Medical Establ ished Patient with Aaron Whitaker MINUTE CLERK FOR BASIC TRAFFIC 02/28/2023 Last Documented On 3 9:51AM ; [facility] Chronic obstructive pulmonary disease Me dical Established Patient with Aaron Whitaker MINUTE CLERK [employer] BASIC TRAFFIC 02/28/2023 Last Documented On 3 9:51AM ; [facility] [J20.9 - Acute bronchitis, unspecified] acute bronchitis Medical Established Patient with Karla Clark MINUTE CLERK [employer] BASIC TRAFFIC 11/19/2022 Last Documented On 3 10:15AM ; [facility] [M79.621 - Pain in right upp er arm] pain in upper arm Medical Established Patient with Karla Clark MINUTE CLERK FOR BASIC TRAFFIC 11/19/2022 Last Documented On 3 10:15AM ; [facility] [Z68.23 - Body mass index [B AZ] 23.0-23.9, adult] assessment of body mass index Medical Established Patient with Karla Clark MINUTE CLERK [employer] BASIC TRAFFIC 11/19/2022 Last Documented On 3 10:15AM ; [facility] [M79.601 - Pain in right arm ] pain in right arm Medical Established Patient with Karla Clark MINUTE CLERK [employer] BASIC TRAFFIC 09/18/2022 Last Documented On 3 2:33PM ; [facility] [Z68.24 - Body mass index [B AZ] 24.0-24.9, adult] assessment of body mass index Medical Established Patient with Karla Clark CNP 09/18/2022 Last Documented On 3 2:33PM ; [facility] Assessment of tobacco use Medical Establ ished Patient with Karla Clark MINUTE CLERK FOR BASIC TRAFFIC 09/18/2022 Last Documented On 3 2:33PM ; [facility] [M25.569 - Pain in unspecifi ed knee] arthralgia of knee / patella / tibia / fibula Medical Established Patient with Karla Clark CNP 08/27/2022 Last Documented On 3 9:20AM ; [facility] [Z68.24 - Body mass index [B AZ] 24.0-24.9, adult] assessment of body mass index Medical Established Patient with Karla Clark CNP 08/27/2022 Last Documented On 3 9:20AM ; [facility] Intervention and counseling on cessation of tobacco use, 3-10 minutes Discussed medication and nicotine replacement for tobacco cessation Medical Established Patient with Karla Clark CNP 08/27/2022 Last Documented On 3 9:20AM ; [facility] Nicotine dependence Medical Established Patient with Karla Clark CNP 08/27/2022 Last Documented On 3 9:20AM ; [facility] Visit for routine adult H&P without abnormal findings Medical Established Patient with Karla Clark CNP 08/27/2022 Last Documented On 3 9:20AM ; [facility] [H92.02 - Otalgia, left ear] earache Med ical Established Patient with Karla Clark MINUTE CLERK FOR BASIC TRAFFIC 06/18/2022 Last Documented On 3 12:11PM ; [facility] [M79.604 - Pain in right leg ] pain in right leg Medical Established Patient with Karla Clark MINUTE CLERK FOR BASIC TRAFFIC 06/18/2022 Last Documented On 3 12:11PM ; [facility] [Z68.24 - Body mass index [B AZ] 24.0-24.9, adult] assessment of body mass index Medical Established Patient with Karlajulius Clark MINUTE CLERK FOR BASIC TRAFFIC 06/18/2022 Last Documented On 3 12:11PM ; [facility] Assessment of tobacco use Medical Establ ished Patient with Karla Amber MINUTE CLERK FOR BASIC TRAFFIC 06/18/2022 Last Documented On 3 12:11PM ; [facility] Diabetes Risk Test Score was four score 06/18/2022 Medical Established Patient with Karla Amber MINUTE CLERK FOR BASIC TRAFFIC 06/18/2022 Last Documented On 3 12:11PM ; [facility] Schizoaffective disorder Established Patient with Yin Feliz LPCC-S 03/20/2022 Last Documented On 2 12:13AM ; [facility] No cough Medical Established Patient with Karlajulius Floresen MINUTE CLERK FOR BASIC TRAFFIC 12/20/2021 Last Documented On 2 3:12PM ; [facility] Visit for: screening for hum an immunodeficiency virus Medical Established Patient with Karla Amber MINUTE CLERK FOR BASIC TRAFFIC 12/20/2021 Last Documented On 2 3:12PM ; [facility] Z68.24 - Body mass index [BM I] 24.0-24.9, adult Medical Established Patient with Karlajulius Floresen MINUTE CLERK FOR BASIC TRAFFIC 12/20/2021 Last Documented On 2 3:12PM ; [facility] Bipolar disorder NOS BH Established Patient with Yin Feliz LPCC-S 11/03/2021 Last Documented On 2 7:00PM ; [facility] Bipolar schizoaffective disorder BH Esta blished Patient with Yin Feliz LPCC-S 11/03/2021 Last Documented On 2 7:00PM ; [facility] PLAN Medical Established Patient with Don Pino MD 11/03/2021 Last Documented On 2 10:40AM ; [facility] Abnormal electrocardiogram Medical Estab lished Patient with Don Pino MD 11/03/2021 Last Documented On 2 10:40AM ; [facility] Z68.24 - Body mass index [BM I] 24.0-24.9, adult Medical Established Patient with Don Pino MD 11/03/2021 Last Documented On 2 10:40AM ; [facility] Cough Medical Established Patient with Karlajulius Floresen MINUTE CLERK FOR BASIC TRAFFIC 07/28/2021 Last Documented On 2 2:01PM ; [facility] Intervention and counseling on cessation of tobacco use, 3-10 minutes Discussed medication and nicotine replacement for tobacco cessation Medical Established Patient with Karla Amber MINUTE CLERK FOR BASIC TRAFFIC 07/28/2021 Last Documented On 2 2:01PM ; [facility] Nicotine dependence Medical Established Patient with Karla Amber MINUTE CLERK FOR BASIC TRAFFIC 07/28/2021 Last Documented On 2 2:01PM ; [facility] Z68.24 - Body mass index [BM I] 24.0-24.9, adult Medical Established Patient with Karla Amber MINUTE CLERK FOR BASIC TRAFFIC 07/28/2021 Last Documented On 2 2:01PM ; [facility] Assess Colon screening Medical Established Patie nt with Karla Amber MINUTE CLERK FOR BASIC TRAFFIC 05/08/2021 Last Documented On 1 10:59AM ; [facility] Diabetes Risk Test Score was four score 05/08/2021 Medical Established Patient with Karla Amber MINUTE CLERK FOR BASIC TRAFFIC 05/08/2021 Last Documented On 1 10:59AM ; [facility] Routine adult history and ph ysical (18-64 yrs) without abnormal findings Medical Established Patient with Karla Amber MINUTE CLERK FOR BASIC TRAFFIC 05/08/2021 Last Documented On 1 10:59AM ; [facility] Z68.24 - Body mass index [BM I] 24.0-24.9, adult Medical Established Patient with Karla Amber MINUTE CLERK FOR BASIC TRAFFIC 05/08/2021 Last Documented On 1 10:59AM ; [facility] Z68.24 - Body mass index [BM I] 24.0-24.9, adult Medical Established Patient with Karla Amber MINUTE CLERK FOR BASIC TRAFFIC 06/17/2020 Last Documented On 1 10:30AM ; [facility] Overweight Medical Established Patient with Karla Amber MINUTE CLERK FOR BASIC TRAFFIC 06/06/2020 Last Documented On 1 2:06PM ; [facility] Z68.25 - Body mass index [BM I] 25.0-25.9, adult Medical Established Patient with Karla Clark MINUTE CLERK FOR BASIC TRAFFIC 06/06/2020 Last Documented On 1 2:06PM ; [facility] Antiasthmatics [facility] Asthma Clinic-New with Karla Amber MINUTE CLERK FOR BASIC TRAFFIC 05/06/2020 Last Documented On 0 7:27PM ; [facility] Assessment of tobacco use [facility]-New with Karla Amber MINUTE CLERK FOR BASIC TRAFFIC 05/06/2020 Last Documented On 0 7:27PM ; [facility] Body mass index [facility]-New with Karla Amber MINUTE CLERK FOR BASIC TRAFFIC 05/06/2020 Last Documented On 0 7:27PM ; [facility] Chronic obstructive pulmonary disease S [facility]-New with Karla Amber MINUTE CLERK FOR BASIC TRAFFIC 05/06/2020 Last Documented On 0 7:27PM ; [facility] Overweight [facility] Ast[facility] Clinic-New with Karlajulius Floresen MINUTE CLERK FOR BASIC TRAFFIC 05/06/2020 Last Documented On 0 7:27PM ; [facility] Z11.4 - Encounter for screen ing for human immunodeficiency virus [HIV] [facility] Clinic-New with Karlajulius Floresen MINUTE CLERK FOR BASIC TRAFFIC 05/06/2020 Last Documented On 0 7:27PM ; [facility] Diabetes Risk Test Score was three score 03/31/2020 Medical Established Patient with Karla Floresen MINUTE CLERK FOR BASIC TRAFFIC 03/31/2020 Last Documented On 0 3:22PM ; [facility] Overweight Medical Established Patient with Karlajulius Floresen MINUTE CLERK FOR BASIC TRAFFIC 03/31/2020 Last Documented On 0 3:22PM ; [facility] Z68.25 - Body mass index [BM I] 25.0-25.9, adult Medical Established Patient with Karla Floresen MINUTE CLERK FOR BASIC TRAFFIC 03/31/2020 Last Documented On 0 3:22PM ; [facility] Encounter for Immunization Nurse Visit with Gary Clark MINUTE CLERK FOR BASIC TRAFFIC 03/14/2020 Last Documented On 0 5:11PM ; [facility] Body mass index Medical Established Patient with Karlajulius Floresen MINUTE CLERK FOR BASIC TRAFFIC 02/26/2020 Last Documented On 0 1:18PM ; [facility] Overweight Medical Established Patient with Karla Amber MINUTE CLERK FOR BASIC TRAFFIC 02/26/2020 Last Documented On 0 1:18PM ; [facility] Overweight Medical Established Patient with Karlajulius Floresen MINUTE CLERK FOR BASIC TRAFFIC 07/23/2019 Last Documented On 0 2:33PM ; [facility] Z68.27 - Body mass index (BM I) 27.0-27.9, adult Medical Established Patient with Karlajulius Floresen MINUTE CLERK FOR BASIC TRAFFIC 07/23/2019 Last Documented On 0 2:33PM ; [facility] Occasional asthma CPS- Asthma Clinic- F/U with A french Clark MINUTE CLERK FOR BASIC TRAFFIC 06/05/2019 Last Documented On 0 7:04PM ; [facility] Overweight CPS- [facility]- F/U with Aim julius Floresen MINUTE CLERK FOR BASIC TRAFFIC 06/05/2019 Last Documented On 0 7:04PM ; [facility] Z68.27 - Body mass index (BM I) 27.0-27.9 adult CPS- [facility] Clinic- F/U with Karla Floresen MINUTE CLERK FOR BASIC TRAFFIC 06/05/2019 Last Documented On 0 7:04PM ; [facility] Occasional asthma CPS Med Review with Karlajulius Flores en MINUTE CLERK FOR BASIC TRAFFIC 04/23/2019 Last Documented On 9 4:01PM ; [facility] Overweight CPS Med Review with Karla Floresen MINUTE CLERK FOR BASIC TRAFFIC 04/23/2019 Last Documented On 9 4:01PM ; [facility] Z68.27 - Body mass index (BM I) 27.0-27.9 adult CPS Med Review with Karla Floresen MINUTE CLERK FOR BASIC TRAFFIC 04/23/2019 Last Documented On 9 4:01PM ; [facility] Acute pharyngitis Medical Established Patient wi th Brandy Serranoer MINUTE CLERK FOR BASIC TRAFFIC 04/15/2019 Last Documented On 9 12:31PM ; [facility] Asthmatic bronchitis with ac [place] exacerbation Medical Established Patient with Brandy Warren MINUTE CLERK FOR BASIC TRAFFIC 04/15/2019 Last Documented On 9 12:31PM ; [facility] Fagerstrom Score was two Medical Established Pat ient with Brandy Warren MINUTE CLERK FOR BASIC TRAFFIC 04/15/2019 Last Documented On 9 12:31PM ; [facility] PHQ-9: total score was three 04/15/2019 Medical Established Patient with Brandy Kelley MINUTE CLERK FOR BASIC TRAFFIC 04/15/2019 Last Documented On 9 12:31PM ; [facility] Body mass index Medical Established Patient with Karla Clark MINUTE CLERK FOR BASIC TRAFFIC 03/05/2019 Last Documented On 9 10:27AM ; [facility] Diabetes Risk Test Score was three score Medical Established Patient with Karla Amber MINUTE CLERK FOR BASIC TRAFFIC 03/05/2019 Last Documented On 9 10:27AM ; [facility] Overweight Medical Established Patient with Karla Amber MINUTE CLERK FOR BASIC TRAFFIC 03/05/2019 Last Documented On 9 10:27AM ; [facility] Z68.28 - Body mass index (BM I) 28.0-28.9, adult Medical Established Patient with Karlajulius Floresen MINUTE CLERK FOR BASIC TRAFFIC 12/22/2018 Last Documented On 9 10:32AM ; [facility] Assess routine adult history and physical (18 - 64 yrs) Medical Established Patient with Karla Amber MINUTE CLERK FOR BASIC TRAFFIC 11/06/2018 Last Documented On 9 2:26PM ; [facility] Overweight Medical Established Patient with Karla Amber MINUTE CLERK FOR BASIC TRAFFIC 11/06/2018 Last Documented On 9 2:26PM ; [facility] Z68.28 - Body mass index (BM I) 28.0-28.9, adult Medical Established Patient with Karla Amber MINUTE CLERK FOR BASIC TRAFFIC 11/06/2018 Last Documented On 9 2:26PM ; [facility] Assess dysphagia Medical Established Patient wit h Karla Floresen MINUTE CLERK FOR BASIC TRAFFIC 09/11/2018 Last Documented On 9 10:53AM ; [facility] Assess routine adult history and physical (18 - 64 yrs) Medical Established Patient with Karla Amber MINUTE CLERK FOR BASIC TRAFFIC 09/11/2018 Last Documented On 9 10:53AM ; [facility] Assess primary insomnia with sleep apnea Medical Established Patient with Karla Amber MINUTE CLERK FOR BASIC TRAFFIC 09/04/2018 Last Documented On 9 2:23PM ; [facility] Assess routine adult history and physical (18 - 64 yrs) Medical Established Patient with Karla Amber MINUTE CLERK FOR BASIC TRAFFIC 09/04/2018 Last Documented On 9 2:23PM ; [facility] Overweight Medical Established Patient with Karla Clark DAKSHA 09/04/2018 Last Documented On 9 2:23PM ; [facility] Z68.29 - Body mass index (BM I) 29.0-29.9, adult Medical Established Patient with Karla Clark MINUTE CLERK FOR BASIC TRAFFIC 09/04/2018 Last Documented On 9 2:23PM ; [facility] Assess vaginal candidiasis Medical Estab lished Patient with Karla Clark DAKSHA 07/31/2018 Last Documented On 9 2:12PM ; [facility] Work Phone: 1(991) 615-736708-26-2024 Progress note* Progress note Date Encounter Last Documented by 01/27/2024 Medical Established Patient Last documented on 01/28/2024; 9:12 AM, Vidaashley Culp CNP; [facility] Active Problems & Conditions - J45.909 - Asthma Occasional - Asthma - F31.9 - Bipolar Disorder Nos - Bipolar disorder, unspecified - J44.9 - Chronic Obstructive Pulmonary Disease - F32.9 - Major depressive disorder, single episode, unspecified - Depression - Schizoaffective Disorder Chief Complaint The Chief Complaint is: Pt here for ER f/u. Nurse from [facility] took stiches out on Saturday. Reason For [...] once daily, 0 days, 0 refills - [place] Carbonate 300 MG Oral Tablet one tablet [...] by IM route every [address] Galciia, 14 days, 0 refills - Topiramate 25 [...] Bipolar disorder NOS Depression Heart Attack 03/2021 [facility] [place]. Surgical: - General surgery right shoulder ORIF [...] 01/27/2024 08:41 am BP-Sitting R134/78 mmHg Pulse Rate-Ivgvzqh10 bpm Ckskkx00 in Addhop795 lbs Body Mass Index25.6 kg/m2 Body Surface Area1.7 m2 Oxygen Lgcbsstjly48 % Vital Signs: - Systolic blood pressure [...] Advance Care Planning Care Team - Karla lCark CNP Health Reminders - Assess BMI satisfied [...] pt : [facility] at [facility]. [id number] Progress note Author Reynaldo Kraft [facility] December 24, 2023 1:28pm Note Date/Time December 24, 2023 1:17 pm [facility] [address] [place] [address] Psychiatry Progress Note Signed Patient: Gail Almeida MR#: [id number] : 1955 Acct:[id number] Age/Sex: 68 / F Adm Date: 4 Loc: Room: [address] [place] [address] Type : ADM IN Attending Dr: Joe [...] mg QHS and 12.5 mg TID Continue [place] 300 mg twice a day, clonidine 0.1 mg daily Continue to monitor mental status Encourage group participation and medication compliance Risk benefits alternatives explained Documented By: Reynaldo Kraft MD 12/24/23 1317 Signed By: <Electronically signed by Reynaldo Kraft MD> 12/24/[address] [facility] Work Phone: 1(727) 313-216907-22-2024 Progress note Author Reynaldo Kraft [facility] December 23, 2023 11:11am Note Date/Time December 23, 2023 11:1 1am [facility] [address] [place] [address] Psychiatry Progress Note Signed Patient: Gail Almeida MR#: [id number] : 1955 Acct:[id number] Age/Sex: 68 / F Adm Date: 4 Loc: Room: [address] [place] [address] Type : ADM IN Attending Dr: oJe Davis MD Copies to: ~ Date of [...] is okay with going to a different care home. Mental status exam: Mental Status: mental status [...] mg QHS and 12.5 mg TID Continue [place] 300 mg twice a day, clonidine 0.1 mg daily Continue to monitor mental status Encourage group participation and medication compliance Risk benefits alternatives explained Documented By: Reynaldo Kraft MD 12/23/23 1109 Signed By: <Electronically signed by Reynaldo Kraft MD> 12/23/23 1[address] [facility] Work Phone: 1(747) 776-881007-21-2024 Progress note Author Joe rodriguez [facility] December 22, 2023 6:30am Note Date/Time December 22, 2023 6:29 am [facility] [address] [place] [address] Psychiatry Progress Note Signed Patient: Gail Almeida MR#: [id number] : 1955 Acct:[id number] Age/Sex: 68 / F Adm Date: 4 Loc: Room: [address] [place] [address] Type : ADM IN Attending Dr: Joe [...] Case management is working on placement options. Hawk [place] level is 1.0. Case management to safety plan with patient's daughter. Continue Topamax 25 QHS, Zyprexa 5 mg daily and 15 mg QHS Continue Seroquel 400 mg QHS and 12.5 mg TID Continue [place], clonidine 0.1 mg daily Continue folic acid 1 mg daily and amantadine 100 mg daily Monitor for suicidal behaviors for safety of self (15-minute face check) Recommend attending groups and psychoeducation for building coping skills Typical short- and long-term side effects of the proposed medication regimen, including contraindications and clinically significant interactions, were discussed with the patient. Medication regimen includes Topamax, Zyprexa, Seroquel, Hawk [place], clonidine and folic acid. Side effects include [...] was provided. Documented By: Joe Davis MD 09 0629 Signed By: <Electronically signed by Joe Davis MD> 12/22/23629 [facility] Work Phone: 1(379) 923-122507-20-2024 Progress note Author Joe [facility]driguez [facility] [facility] December 21, 2023 6:35am Note Date/Time December 21, 2023 6:35 am [facility] [address] [place] [address] Psychiatry Progress Note Signed Patient: Gail Almeida MR#: [id number] : 1955 Acct:[id number] Age/Sex: 68 / F Adm Date: 4 Loc: Room: [address] [place] [address] Type : ADM IN Attending Dr: Joe [...] Case management is working on placement options. [place] level is 1.0. Case management to safety plan with patient's daughter. Continue Topamax 25 QHS, Zyprexa 5 mg daily and 15 mg QHS Continue Seroquel 400 mg QHS and 12.5 mg TID Continue [place], clonidine 0.1 mg daily Continue folic acid 1 mg daily and amantadine 100 mg daily Monitor for suicidal behaviors for safety of self (15-minute face check) Recommend attending groups and psychoeducation for building coping skills Typical short- and long-term side effects of the proposed medication regimen, including contraindications and clinically significant interactions, were discussed with the patient. Medication regimen includes Topamax, Zyprexa, Seroquel, [place], clonidine and folic acid. Side effects include [...] signed by Joe Davis MD> 12/21/[address] [facility] Work Phone: 1(931) 468-266907-19-2024 Progress note Author Joe rodriguez [facility] December 20, 2023 6:36am Note Date/Time December 20, 2023 6:36 am [facility] [address] [place] [address] Psychiatry Progress Note Signed Patient: Gail Almeida MR#: [id number] : 1955 Acct:[id number] Age/Sex: 68 / F Adm Date: 4 Loc: Room: [address] [place] [address] Type : ADM IN Attending Dr: Joe Davis MD Copies to: ~ Date of Service: 12/20/2023 Subjective Subjective Narrative: Ms. Almeida said she had a good day and staff reported that she is at her baseline. She denied any AVH or SI/HI. She is compliant with treatment. Per case management rn, spoke with Alma Louis from [facility] [employer] in regards to placement for pt at discharge, states [facility] is not able to care for pt and has spoke with [facility] about placement. This verse writer to reach out toMelody at facility to [...] Case management is working on placement options. [place] level is 1.0. Case management to safety plan with patient's daughter. Continue Topamax 25 QHS, Zyprexa 5 mg daily and 15 mg QHS Continue Seroquel 400 mg QHS and 12.5 mg TID Continue [place], clonidine 0.1 mg daily Continue folic acid 1 mg daily and amantadine 100 mg daily Monitor for suicidal behaviors for safety of self (15-minute face check) Recommend attending groups and psychoeducation for building coping skills Typical short- and long-term side effects of the proposed medication regimen, including contraindications and clinically significant interactions, were discussed with the patient. Medication regimen includes Topamax, Zyprexa, Seroquel, [place], clonidine and folic acid. Side effects include [...] provided. Documented By: Joe Davis MD [id number] Signed By: <Electronically signed by Joe Davis MD> 12/20/23 0636 [facility] Work Phone: 1(728) 762-787607-18-2024 Progress note Author Joe rodriguez [facility] December 19, 2023 6:46am Note Date/Time December 19, 2023 6:45 am [facility] [address] [place] [address] Psychiatry Progress Note Signed Patient: Gail Amleida MR#: [id number] : 1955 Acct:[id number] Age/Sex: 68 / F Adm Date: 4 Loc: Room: [address] [place] [address] Type : ADM IN Attending Dr: Joe [...] showing signs of improvement and denied SI/HI. [place] level is 1.0. Case management to safety plan with patient's daughter. Continue Topamax 25 QHS, Zyprexa 5 mg daily and 15 mg QHS Continue Seroquel 400 mg QHS and 12.5 mg TID Continue [place], clonidine 0.1 mg daily Continue folic acid 1 mg daily and amantadine 100 mg daily Monitor for suicidal behaviors for safety of self (15-minute face check) Recommend attending groups and psychoeducation for building coping skills Typical short- and long-term side effects of the proposed medication regimen, including contraindications and clinically significant interactions, were discussed with the patient. Medication regimen includes Topamax, Zyprexa, Seroquel, [place], clonidine and folic acid. Side effects include [...] signed by Joe Davis MD> 12/19/[address] [facility] Work Phone: 1(770) 143-433207-17-2024 Progress note Author Joe rodriguez [facility] December 18, 2023 6:40am Note Date/Time December 18, 2023 6:38 am [facility] [address] [place] [address] Psychiatry Progress Note Signed Patient: Gail Almeida MR#: [id number] : 1955 Acct:[id number] Age/Sex: 68 / F Adm Date: 4 Loc: 1S Room: [address] [place] [address] Type : ADM IN Attending Dr: Joe [...] showing signs of improvement and denied SI/HI. [place] level is pending. Continue Topamax 25 QHS, Zyprexa 5 mg daily and 15 mg QHS Continue Seroquel 400 mg QHS and 12.5 mg TID Continue [place], clonidine 0.1 mg daily Continue folic acid 1 mg daily and amantadine 100 mg daily Monitor for suicidal behaviors for safety of self (15-minute face check) Recommend attending groups and psychoeducation for building coping skills Typical short- and long-term side effects of the proposed medication regimen, including contraindications and clinically significant interactions, were discussed with the patient. Medication regimen includes Topamax, Zyprexa, Seroquel, [place], clonidine and folic acid. Side effects include [...] signed by Joe Davis MD> 12/18/[address] [facility] Work Phone: 1([phone]) 162-639107-16-2024 History and physical note Author Joe rodriguez [facility] December 17, 2023 11:50am Note Date/Time December 17, 2023 10:1 7am [facility] [address] [place] [address] Psychiatry H&P Signed Patient: Gail Almeida MR#: [id number] : 1955 Acct:[id number] Age/Sex: 68 / F Adm Date: 4 Loc: Room: [address] [place] [address] Type: ADM IN Attending Dr: Joe Davis [...] assisted living facility called. She lives at [facility]. The pt has been having visual [...] HI and AVH Insight: Poor Judgment: Poor [facility] Medical History (Updated 12/16/23 @ 14:32 by SHAN AcostaC) Right knee pain Localized swelling, mass and [...] oral powder 17 g PO DAILY PRN Jsyvfrygomjb11/10/23 [History Confirmed 12/16/23] albuterol sulfate 90 mcg/actuation [...] 12/16/23] dextromethorphan-guaifenesin 30 mg-600 mg tablet extended ocuzqsw44 hr (Mucus DM) 1 tab PO Q12HR [...] Appearance Clear Urine pH 7.0 Ur Specific [place] 1.005 Urine Protein Negative Urine Glucose (UA) Normal Urine Ketones Negative Urine Occult Blood Negative Urine Nitrite Negative Ur Leukocyte Esterase Negative Assessment/Plan (1) Chronic schizophrenia: (2) Acute psychosis: Plan Continue Topamax 25 QHS, Zyprexa 5 mg daily and 15 mg QHS Continue Seroquel 400 mg QHS and 12.5 mg TID Continue [place], clonidine 0.1 mg daily Continue folic acid 1 mg daily and amantadine 100 mg daily Monitor for suicidal behaviors for safety of self (15-minute face check) Recommend attending groups and psychoeducation for building coping skills Typical short- and long-term side effects of the proposed medication regimen, including contraindications and clinically significant interactions, were discussed with the patient. Medication regimen includes Topamax, Zyprexa, Seroquel, [place], clonidine and folic acid. Side effects include [...] was provided. Documented By: Mazin Lamb DO, DONOVAN 12/17/23 0775 Signed By: <Electronically signed by DO DONOVAN Lamb> 12/17/23 1017 <Electronically signed by Joe Davis MD> 12/17/23 5172 [facility] Work Phone: 1(902) 856-631606-14-2024 Progress note* Progress note Date Encounter Last Documented by 11/15/2023 Chart Update Last documented on 11/15/2023; 12:07 PM, Karla Clark CNP; [facility] Active Problems & Conditions - J45.909 [...] 1 actuation by mouth twice daily (replaces [employer] r/t insurance), 30 days, 11 refills - [...] once daily, 0 days, 0 refills - [place] Carbonate 300 MG Oral Tablet one tablet [...] Bipolar disorder NOS Depression Heart Attack 03/2021 [facility] [place]. Surgical: - General surgery right shoulder ORIF [...] Planning Care Team - Karla Clark CNP [facility]06-14-2024 Instructions Includes: Instructions for all patient encounters Instructions to patient Intervention and counseling on cessation of tobacco use, 3-10 minutes Discussed medication and nicotine replacement for tobacco cessation Last Documented On 3 8:54AM ; [facility] Intervention and counseling on cessation of tobacco use, 3-10 minutes Discussed medication and nicotine replacement for tobacco cessation Last Documented On 2 1:56PM ; [facility] Intervention and counseling on cessation of tobacco use, 3-10 minutes Last Documented On 0 2:07PM ; [facility] Return to the clinic if cond ition worsens or new symptoms arise Last Documented On 9 1:59PM ; [facility] Intervention and counseling on cessation of tobacco use, 3-10 minutes Last Documented On 9 10:39AM ; [facility] Education and Decision Aids were provided during visit for: Discussed nutritional needs teach healthy choices including fruits and vegetables Last Documented On 4 1:26PM ; [facility] Patient education about a pr oper diet Last Documented On 4 1:26PM ; [facility] Discussed concerns about exe rcise : promote physical activity Last Documented On 4 1:26PM ; [facility] Discussed nutritional needs teach healthy choices including fruits and vegetables Last Documented On 3 10:55AM ; [facility] Patient education about a pr oper diet Last Documented On 3 10:55AM ; [facility] Discussed concerns about exe rcise : promote physical activity Last Documented On 3 10:55AM ; [facility] Discussed nutritional needs teach healthy choices including fruits and vegetables Last Documented On 3 9:37AM ; [facility] Patient education about a pr oper diet Last Documented On 3 9:37AM ; [facility] Discussed concerns about exe rcise : promote physical activity Last Documented On 3 9:37AM ; [facility] Not requesting contraception Last Documented On 3 9:37AM ; [facility] Discussed nutritional needs teach healthy choices including fruits and vegetables Last Documented On 3 9:20AM ; [facility] Patient education about a pr oper diet Last Documented On 3 9:20AM ; [facility] Discussed concerns about exe rcise : promote physical activity Last Documented On 3 9:20AM ; [facility] Discussed nutritional needs teach healthy choices including fruits and vegetables Last Documented On 3 2:02PM ; [facility] Patient education about a pr oper diet Last Documented On 3 2:02PM ; [facility] Discussed concerns about exe rcise : promote physical activity Last Documented On 3 2:02PM ; [facility] Discussed nutritional needs teach healthy choices including fruits and vegetables Last Documented On 3 8:32AM ; [facility] Patient education about a pr oper diet Last Documented On 3 8:32AM ; [facility] Discussed concerns about exe rcise : promote physical activity Last Documented On 3 8:32AM ; [facility] Discussed nutritional needs teach healthy choices including fruits and vegetables Last Documented On 3 11:28AM ; [facility] Patient education about a pr oper diet Last Documented On 3 11:28AM ; [facility] Discussed concerns about exe rcise : promote physical activity Last Documented On 3 11:28AM ; [facility] Discussed nutritional needs teach healthy choices including fruits and vegetables Last Documented On 2 2:01PM ; [facility] Patient education about a pr oper diet Last Documented On 2 2:01PM ; [facility] Discussed concerns about exe rcise : promote physical activity Last Documented On 2 2:01PM ; [facility] Discussed nutritional needs teach healthy choices including fruits and vegetables Last Documented On 2 2:11PM ; [facility] Patient education about a pr oper diet Last Documented On 2 2:11PM ; [facility] Discussed concerns about exe rcise : promote physical activity Last Documented On 2 2:11PM ; [facility] Discussed current self-care methods/coping skills. ~Validated and normalized pt's feelings while assisting patient process recent events. ~Discussed ongoing counseling. ~Discussed lifestyle changes to address chronic illness. ~Supported patient's personal health goals ~wordfinds. walk, read, eat, enjoy my best friesnd Last Documented On 2 5:54PM ; [facility] Discussed nutritional needs teach healthy choices including fruits and vegetables Last Documented On 2 10:04AM ; [facility] Patient education about a pr oper diet Last Documented On 2 10:04AM ; [facility] Discussed concerns about exe rcise : promote physical activity Last Documented On 2 10:04AM ; [facility] Discussed nutritional needs teach healthy choices including fruits and vegetables Last Documented On 2 1:25PM ; [facility] Patient education about a pr oper diet Last Documented On 2 1:25PM ; [facility] Discussed concerns about exe rcise : promote physical activity Last Documented On 2 1:25PM ; [facility] Discussed nutritional needs teach healthy choices including fruits and vegetables Last Documented On 1 10:08AM ; [facility] Patient education about a pr oper diet Last Documented On 1 10:08AM ; [facility] Discussed concerns about exe rcise : promote physical activity Last Documented On 1 10:08AM ; [facility] Discussed nutritional needs teach healthy choices including fruits and vegetables Last Documented On 1 1:12PM ; [facility] Patient education about a pr oper diet Last Documented On 1 1:12PM ; [facility] Patient education about a pr oper diet Last Documented On 1 1:30PM ; [facility] Patient education about meal planning Last Documented On 1 1:30PM ; [facility] Education about changing eat ing habits Last Documented On 1 1:30PM ; [facility] Patient education about high fiber diet Last Documented On 1 1:30PM ; [facility] Patient education about low fat diet Last Documented On 1 1:30PM ; [facility] Patient education about low cholesterol diet Last Documented On 1 1:30PM ; [facility] Patient education about low carbohydrate diet Last Documented On 1 1:30PM ; [facility] Patient education about high protein diet Last Documented On 1 1:30PM ; [facility] Discussed concerns about exe rcise : promote physical activity Last Documented On 1 1:12PM ; [facility] Education/counseling conduct ed by pharmacist Last Documented On 0 1:39PM ; [facility] Vaccination counseling Last Documented On 0 1:39PM ; [facility] Discussed concerns about exe rcise : promote physical activity Last Documented On 0 2:16PM ; [facility] Patient goals decrease short ness of breath episodes Last Documented On 0 2:11PM ; [facility] Patient states that she uses her [...] recently Last Documented On 0 2:24PM ; [facility] Patient education about a pr oper diet Last Documented On 0 2:54PM ; [facility] Patient education about meal planning Last Documented On 0 2:54PM ; [facility] Education about changing eat ing habits Last Documented On 0 2:54PM ; [facility] Patient education about high fiber diet Last Documented On 0 2:54PM ; [facility] Patient education about low fat diet Last Documented On 0 2:54PM ; [facility] Patient education about low cholesterol diet Last Documented On 0 2:54PM ; [facility] Patient education about low carbohydrate diet Last Documented On 0 2:54PM ; [facility] Patient education about high protein diet Last Documented On 0 2:54PM ; [facility] Discussed nutritional needs teach healthy choices including fruits and vegetables Last Documented On 0 11:11AM ; [facility] Patient education about a pr oper diet Last Documented On 0 11:11AM ; [facility] Patient education about a pr oper diet Last Documented On 0 11:28AM ; [facility] Patient education about meal planning Last Documented On 0 11:28AM ; [facility] Education about changing eat ing habits Last Documented On 0 11:28AM ; [facility] Patient education about high fiber diet Last Documented On 0 11:28AM ; [facility] Patient education about low fat diet Last Documented On 0 11:28AM ; [facility] Patient education about low cholesterol diet Last Documented On 0 11:28AM ; [facility] Patient education about low carbohydrate diet Last Documented On 0 11:28AM ; [facility] Patient education about high protein diet Last Documented On 0 11:28AM ; [facility] Discussed concerns about exe rcise : promote physical activity Last Documented On 0 11:11AM ; [facility] Education/counseling conduct ed by pharmacist Last Documented On 0 1:41PM ; [facility] Patient states that she lonnie gonzalez [...] own Last Documented On 0 2:08PM ; [facility] Education/counseling conduct ed by pharmacist Last Documented On 9 1:12PM ; [facility] Patient states that she lonnie gonzalez has issues with her inhaler with the spacer. Patient did not bring in inhaler or spacer. Patient was told to bring in inhalers at next scheduled visit for pharmacist to assess inhalation technique. Patient is agreeable Last Documented On 9 1:13PM ; [facility] Patient goals Start using ch deon to help with inhaling dulera Last Documented On 9 2:40PM ; [facility] Patient states that she is g [...] vaccines Last Documented On 9 2:51PM ; [facility] Discussed nutritional needs teach healthy choices including fruits and vegetables Last Documented On 9 9:29AM ; [facility] Patient education about a pr oper diet Last Documented On 9 9:29AM ; [facility] Discussed concerns about exe rcise : promote physical activity Last Documented On 9 9:29AM ; [facility] Work Phone: 1(379) 924-863805-03-2024 Evaluation note Includes: Assessments for all patient encounters Findings Encounter Date [F17.210 - Nicotine dependen ce, cigarettes, uncomplicated] continuous dependence on cigarette smoking Medical Established Patient with aKrla Clark [facility] 10/04/2023 Last Documented On 4 6:30PM ; [facility] [Z12.11 - Encounter for scre ening for malignant neoplasm of colon] Colon screening Medical Established Patient with Karla Clark [facility] 10/04/2023 Last Documented On 4 6:30PM ; [facility] [Z68.25 - Body mass index [B AZ] 25.0-25.9, adult] assessment of body mass index Medical Established Patient with Karla Clark [facility] 10/04/2023 Last Documented On 4 6:30PM ; [facility] Diabetes Risk Test Score was five score 10/04/2023 Medical Established Patient with Karla Clark [facility] 10/04/2023 Last Documented On 4 6:30PM ; [facility] Encounter for Immunization Medical Estab lished Patient with Karla Clark [facility] 10/04/2023 Last Documented On 4 6:30PM ; [facility] [D48.5 - Neoplasm of uncerta in behavior of skin] skin neoplasm of uncertain behavior Medical Established Patient with Karla Clark [facility] 05/22/2023 Last Documented On 3 1:30PM ; [facility] [Z68.24 - Body mass index [B AZ] 24.0-24.9, adult] assessment of body mass index Medical Established Patient with Karla Clark [facility] 05/22/2023 Last Documented On 3 1:30PM ; [facility] Assessment of tobacco use Medical Establ ished Patient with Karla Clark [facility] 05/22/2023 Last Documented On 3 1:30PM ; [facility] [R30.0 - Dysuria] Dysuria Chart Update with Gary Clark [employer] 03/21/2023 Last Documented On 3 11:27AM ; [facility] [Z12.39 - Encounter for othe r screening for malignant neoplasm of breast] visit for: screening for malignant breast neoplasm Medical Established Patient with Aaron Whitaker [employer] 02/28/2023 Last Documented On 3 9:51AM ; [facility] [Z68.24 - Body mass index [B AZ] 24.0-24.9, adult] assessment of body mass index Medical Established Patient with Aaron Whitaker [employer] 02/28/2023 Last Documented On 3 9:51AM ; [facility] Assessment of tobacco use Medical Establ ished Patient with Aaron Whitaker [employer] 02/28/2023 Last Documented On 3 9:51AM ; [facility] Chronic obstructive pulmonary disease Me dical Established Patient with Aaron Whitaker [employer] 02/28/2023 Last Documented On 3 9:51AM ; [facility] [J20.9 - Acute bronchitis, unspecified] acute bronchitis Medical Established Patient with Karla Clark [employer] 11/19/2022 Last Documented On 3 10:15AM ; [facility] [M79.621 - Pain in right upp er arm] pain in upper arm Medical Established Patient with Karla Clark [employer] 11/19/2022 Last Documented On 3 10:15AM ; [facility] [Z68.23 - Body mass index [B AZ] 23.0-23.9, adult] assessment of body mass index Medical Established Patient with Karla Clark [employer] 11/19/2022 Last Documented On 3 10:15AM ; [facility] [M79.601 - Pain in right arm ] pain in right arm Medical Established Patient with Karla Clark [employer] 09/18/2022 Last Documented On 3 2:33PM ; [facility] [Z68.24 - Body mass index [B AZ] 24.0-24.9, adult] assessment of body mass index Medical Established Patient with Karla Clark [employer] 09/18/2022 Last Documented On 3 2:33PM ; [facility] Assessment of tobacco use Medical Establ ished Patient with Karla Clark [employer] 09/18/2022 Last Documented On 3 2:33PM ; [facility] [M25.569 - Pain in unspecifi ed knee] arthralgia of knee / patella / tibia / fibula Medical Established Patient with Karla Clark [employer] 08/27/2022 Last Documented On 3 9:20AM ; [facility] [Z68.24 - Body mass index [B AZ] 24.0-24.9, adult] assessment of body mass index Medical Established Patient with Karla Clark [employer] 08/27/2022 Last Documented On 3 9:20AM ; [facility] Intervention and counseling on cessation of tobacco use, 3-10 minutes Discussed medication and nicotine replacement for tobacco cessation Medical Established Patient with Karla Clark [employer] 08/27/2022 Last Documented On 3 9:20AM ; [facility] Nicotine dependence Medical Established Patient with Karla Clark [employer] 08/27/2022 Last Documented On 3 9:20AM ; [facility] Visit for routine adult H&P without abnormal findings Medical Established Patient with Karla Clark CNP 08/27/2022 Last Documented On 3 9:20AM ; [facility] [H92.02 - Otalgia, left ear] earache Med ical Established Patient with Karla Clark [employer] 06/18/2022 Last Documented On 3 12:11PM ; [facility] [facility]M79.604 - Pain in right leg ] pain in right leg Medical Established Patient with Karla Clark MINUTE CLERK FOR BASIC TRAFFIC 06/18/2022 Last Documented On 3 12:11PM ; [facility] [Z68.24 - Body mass index [B AZ] 24.0-24.9, adult] assessment of body mass index Medical Established Patient with Karla Clark MINUTE CLERK FOR BASIC TRAFFIC 06/18/2022 Last Documented On 3 12:11PM ; [facility] Assessment of tobacco use Medical Establ ished Patient with Karla Clark MINUTE CLERK FOR BASIC TRAFFIC 06/18/2022 Last Documented On 3 12:11PM ; [facility] Diabetes Risk Test Score was four score 06/18/2022 Medical Established Patient with Kalrajulius Clark MINUTE CLERK FOR BASIC TRAFFIC 06/18/2022 Last Documented On 3 12:11PM ; [facility] Schizoaffective disorder Established Patient with Yin Feliz LPCC-S 03/20/2022 Last Documented On 2 12:13AM ; [facility] No cough Medical Established Patient with Karla Amber MINUTE CLERK FOR BASIC TRAFFIC 12/20/2021 Last Documented On 2 3:12PM ; [facility] Visit for: screening for hum an immunodeficiency virus Medical Established Patient with Karlajulius Clark MINUTE CLERK FOR BASIC TRAFFIC 12/20/2021 Last Documented On 2 3:12PM ; [facility] Z68.24 - Body mass index [BM I] 24.0-24.9, adult Medical Established Patient with Karla Clark MINUTE CLERK FOR BASIC TRAFFIC 12/20/2021 Last Documented On 2 3:12PM ; [facility] Bipolar disorder NOS BH Established Patient with Yin Feliz LPCC-S 11/03/2021 Last Documented On 2 7:00PM ; [facility] Bipolar schizoaffective disorder BH Esta blished Patient with Yin Feliz LPCC-S 11/03/2021 Last Documented On 2 7:00PM ; [facility] PLAN Medical Established Patient with Don Pino MD 11/03/2021 Last Documented On 2 10:40AM ; [facility] Abnormal electrocardiogram Medical Estab lished Patient with Don Pino MD 11/03/2021 Last Documented On 2 10:40AM ; [facility] Z68.24 - Body mass index [BM I] 24.0-24.9, adult Medical Established Patient with Don Pino MD 11/03/2021 Last Documented On 2 10:40AM ; [facility] Cough Medical Established Patient with Karla Clark MINUTE CLERK FOR BASIC TRAFFIC 07/28/2021 Last Documented On 2 2:01PM ; [facility] Intervention and counseling on cessation of tobacco use, 3-10 minutes Discussed medication and nicotine replacement for tobacco cessation Medical Established Patient with Karla Clark MINUTE CLERK FOR BASIC TRAFFIC 07/28/2021 Last Documented On 2 2:01PM ; [facility] Nicotine dependence Medical Established Patient with Karla Amber MINUTE CLERK FOR BASIC TRAFFIC 07/28/2021 Last Documented On 2 2:01PM ; [facility] Z68.24 - Body mass index [BM I] 24.0-24.9, adult Medical Established Patient with Karla Amber MINUTE CLERK FOR BASIC TRAFFIC 07/28/2021 Last Documented On 2 2:01PM ; [facility] Assess Colon screening Medical Established Patie nt with Karlajulius Clark MINUTE CLERK FOR BASIC TRAFFIC 05/08/2021 Last Documented On 1 10:59AM ; [facility] Diabetes Risk Test Score was four score 05/08/2021 Medical Established Patient with Karla Clark MINUTE CLERK FOR BASIC TRAFFIC 05/08/2021 Last Documented On 1 10:59AM ; [facility] Routine adult history and ph ysical (18-64 yrs) without abnormal findings Medical Established Patient with Karla Clark MINUTE CLERK FOR BASIC TRAFFIC 05/08/2021 Last Documented On 1 10:59AM ; [facility] Z68.24 - Body mass index [BM I] 24.0-24.9, adult Medical Established Patient with Karla Clark MINUTE CLERK FOR BASIC TRAFFIC 05/08/2021 Last Documented On 1 10:59AM ; [facility] Z68.24 - Body mass index [BM I] 24.0-24.9, adult Medical Established Patient with Karla Amber MINUTE CLERK FOR BASIC TRAFFIC 06/17/2020 Last Documented On 1 10:30AM ; [facility] Overweight Medical Established Patient with Karla Amber MINUTE CLERK FOR BASIC TRAFFIC 06/06/2020 Last Documented On 1 2:06PM ; [facility] Z68.25 - Body mass index [BM I] 25.0-25.9, adult Medical Established Patient with Karla Amber MINUTE CLERK FOR BASIC TRAFFIC 06/06/2020 Last Documented On 1 2:06PM ; [facility] Antiasthmatics [facility] Asthma Clinic-New with Karla Amber MINUTE CLERK FOR BASIC TRAFFIC 05/06/2020 Last Documented On 0 7:27PM ; [facility] Assessment of tobacco use C[facility]-New with Karla Amber MINUTE CLERK FOR BASIC TRAFFIC 05/06/2020 Last Documented On 0 7:27PM ; [facility] Body mass index [facility] Clinic-New with Karla Amber MINUTE CLERK FOR BASIC TRAFFIC 05/06/2020 Last Documented On 0 7:27PM ; [facility] Chronic obstructive pulmonary disease CP S [facility]-New with Karla Amber MINUTE CLERK FOR BASIC TRAFFIC 05/06/2020 Last Documented On 0 7:27PM ; [facility] Overweight [facility] Ast[facility] Clinic-New with Karla Amber MINUTE CLERK FOR BASIC TRAFFIC 05/06/2020 Last Documented On 0 7:27PM ; [facility] Z11.4 - Encounter for screen ing for human immunodeficiency virus [HIV] [facility] Clinic-New with Karlajulius Floresen MINUTE CLERK FOR BASIC TRAFFIC 05/06/2020 Last Documented On 0 7:27PM ; [facility] Diabetes Risk Test Score was three score 03/31/2020 Medical Established Patient with Karla Amber MINUTE CLERK FOR BASIC TRAFFIC 03/31/2020 Last Documented On 0 3:22PM ; [facility] Overweight Medical Established Patient with Karla Amber MINUTE CLERK FOR BASIC TRAFFIC 03/31/2020 Last Documented On 0 3:22PM ; [facility] Z68.25 - Body mass index [BM I] 25.0-25.9, adult Medical Established Patient with Karla Floresen MINUTE CLERK FOR BASIC TRAFFIC 03/31/2020 Last Documented On 0 3:22PM ; [facility] Encounter for Immunization Nurse Visit with Gary Clark MINUTE CLERK FOR BASIC TRAFFIC 03/14/2020 Last Documented On 0 5:11PM ; [facility] Body mass index Medical Established Patient with Karla Amber MINUTE CLERK FOR BASIC TRAFFIC 02/26/2020 Last Documented On 0 1:18PM ; [facility] Overweight Medical Established Patient with Karla Amber MINUTE CLERK FOR BASIC TRAFFIC 02/26/2020 Last Documented On 0 1:18PM ; [facility] Overweight Medical Established Patient with Karla Amber MINUTE CLERK FOR BASIC TRAFFIC 07/23/2019 Last Documented On 0 2:33PM ; [facility] Z68.27 - Body mass index (BM I) 27.0-27.9, adult Medical Established Patient with Karla Clark MINUTE CLERK FOR BASIC TRAFFIC 07/23/2019 Last Documented On 0 2:33PM ; [facility] Occasional asthma [facility]- [facility] Clinic- F/U with A french Clark MINUTE CLERK FOR BASIC TRAFFIC 06/05/2019 Last Documented On 0 7:04PM ; [facility] Overweight [facility]- [facility]- F/U with Aim julius Clark MINUTE CLERK FOR BASIC TRAFFIC 06/05/2019 Last Documented On 0 7:04PM ; [facility] Z68.27 - Body mass index (BM I) 27.0-27.9 adult [facility]- [facility]- F/U with Karla Clark MINUTE CLERK FOR BASIC TRAFFIC 06/05/2019 Last Documented On 0 7:04PM ; [facility] Occasional asthma CPS Med Review with Karla dinh MINUTE CLERK FOR BASIC TRAFFIC 04/23/2019 Last Documented On 9 4:01PM ; [facility] Overweight CPS Med Review with Karla Clark MINUTE CLERK FOR BASIC TRAFFIC 04/23/2019 Last Documented On 9 4:01PM ; [facility] Z68.27 - Body mass index (BM I) 27.0-27.9 adult CPS Med Review with Karla Clark MINUTE CLERK FOR BASIC TRAFFIC 04/23/2019 Last Documented On 9 4:01PM ; [facility] Acute pharyngitis Medical Established Patient wi th Brandy Warren MINUTE CLERK FOR BASIC TRAFFIC 04/15/2019 Last Documented On 9 12:31PM ; [facility] Asthmatic bronchitis with ac [place] exacerbation Medical Established Patient with Brandy Warren MINUTE CLERK FOR BASIC TRAFFIC 04/15/2019 Last Documented On 9 12:31PM ; [facility] Fagerstrom Score was two Medical Established Pat ient with Brandy Warren MINUTE CLERK FOR BASIC TRAFFIC 04/15/2019 Last Documented On 9 12:31PM ; [facility] PHQ-9: total score was three 04/15/2019 Medical Established Patient with Brandy Warren MINUTE CLERK FOR BASIC TRAFFIC 04/15/2019 Last Documented On 9 12:31PM ; [facility] Body mass index Medical Established Patient with Karla Amber MINUTE CLERK FOR BASIC TRAFFIC 03/05/2019 Last Documented On 9 10:27AM ; [facility] Diabetes Risk Test Score was three score Medical Established Patient with Karla Amber MINUTE CLERK FOR BASIC TRAFFIC 03/05/2019 Last Documented On 9 10:27AM ; [facility] Overweight Medical Established Patient with Karla Amber MINUTE CLERK FOR BASIC TRAFFIC 03/05/2019 Last Documented On 9 10:27AM ; [facility] Z68.28 - Body mass index (BM I) 28.0-28.9, adult Medical Established Patient with Karla Amber MINUTE CLERK FOR BASIC TRAFFIC 12/22/2018 Last Documented On 9 10:32AM ; [facility] Assess routine adult history and physical (18 - 64 yrs) Medical Established Patient with Karla Amber MINUTE CLERK FOR BASIC TRAFFIC 11/06/2018 Last Documented On 9 2:26PM ; [facility] Overweight Medical Established Patient with Karla Amber MINUTE CLERK FOR BASIC TRAFFIC 11/06/2018 Last Documented On 9 2:26PM ; [facility] Z68.28 - Body mass index (BM I) 28.0-28.9, adult Medical Established Patient with Karla Amber MINUTE CLERK FOR BASIC TRAFFIC 11/06/2018 Last Documented On 9 2:26PM ; [facility] Assess dysphagia Medical Established Patient wit h Karla Amber MINUTE CLERK FOR BASIC TRAFFIC 09/11/2018 Last Documented On 9 10:53AM ; [facility] Assess routine adult history and physical (18 - 64 yrs) Medical Established Patient with Karla Amber MINUTE CLERK FOR BASIC TRAFFIC 09/11/2018 Last Documented On 9 10:53AM ; [facility] Assess primary insomnia with sleep apnea Medical Established Patient with Karla Amber MINUTE CLERK FOR BASIC TRAFFIC 09/04/2018 Last Documented On 9 2:23PM ; [facility] Assess routine adult history and physical (18 - 64 yrs) Medical Established Patient with Karla Amber MINUTE CLERK FOR BASIC TRAFFIC 09/04/2018 Last Documented On 9 2:23PM ; [facility] Overweight Medical Established Patient with Karla Amber MINUTE CLERK FOR BASIC TRAFFIC 09/04/2018 Last Documented On 9 2:23PM ; [facility] Z68.29 - Body mass index (BM I) 29.0-29.9, adult Medical Established Patient with Karla Clark MINUTE CLERK FOR BASIC TRAFFIC 09/04/2018 Last Documented On 9 2:23PM ; [facility] Assess vaginal candidiasis Medical Estab lished Patient with Karla Clark MINUTE CLERK FOR BASIC TRAFFIC 07/31/2018 Last Documented On 9 2:12PM ; [facility] Work Phone: 1(897) 433-205505-03-2024 Progress note* Progress note Date Encounter Last Documented by 10/04/2023 Medical Established Patient Last documented on 10/04/2023; 6:30 PM, Karla Clark MINUTE CLERK FOR BASIC TRAFFIC; [facility] Active Problems & Conditions - J45.909 [...] thyroid gland removed in Jul 2023 at [facility] Had lesion removed from nose and [...] once daily, 0 days, 0 refills - [place] Carbonate 150 MG Oral Capsule one capsule [...] Bipolar disorder NOS Depression Heart Attack 03/2021 [facility] [place]. Surgical: - General surgery right shoulder ORIF [...] BP-Sitting L142/88 mmHg BP Cuff SizeRegular Pulse Rate-[id number] bpm Rcigiv65 in [id number] lbs Body Mass Index25.2 kg/m2 Body Surface Area1.7 m2 Oxygen [id number] % - Vitals taken 10/04/2023 01:33 pm [...] needed clothing: No, unable to get needed child care attendant school: No, unable to get needed phone: No, [...] 60 years or older (3 points) [Pre-DM]. [facility]05-03-2024 Instructions Includes: Instructions for all patient encounters Instructions to patient Intervention and counseling on cessation of tobacco use, 3-10 minutes Discussed medication and nicotine replacement for tobacco cessation Last Documented On 3 8:54AM ; [facility] Intervention and counseling on cessation of tobacco use, 3-10 minutes Discussed medication and nicotine replacement for tobacco cessation Last Documented On 2 1:56PM ; [facility] Intervention and counseling on cessation of tobacco use, 3-10 minutes Last Documented On 0 2:07PM ; [facility] Return to the clinic if cond ition worsens or new symptoms arise Last Documented On 9 1:59PM ; [facility] Intervention and counseling on cessation of tobacco use, 3-10 minutes Last Documented On 9 10:39AM ; [facility] Education and Decision Aids were provided during visit for: Discussed nutritional needs teach healthy choices including fruits and vegetables Last Documented On 4 1:26PM ; [facility] Patient education about a pr oper diet Last Documented On 4 1:26PM ; [facility] Discussed concerns about exe rcise : promote physical activity Last Documented On 4 1:26PM ; [facility] Discussed nutritional needs teach healthy choices including fruits and vegetables Last Documented On 3 10:55AM ; [facility] Patient education about a pr oper diet Last Documented On 3 10:55AM ; [facility] Discussed concerns about exe rcise : promote physical activity Last Documented On 3 10:55AM ; [facility] Discussed nutritional needs teach healthy choices including fruits and vegetables Last Documented On 3 9:37AM ; [facility] Patient education about a pr oper diet Last Documented On 3 9:37AM ; [facility] Discussed concerns about exe rcise : promote physical activity Last Documented On 3 9:37AM ; [facility] Not requesting contraception Last Documented On 3 9:37AM ; [facility] Discussed nutritional needs teach healthy choices including fruits and vegetables Last Documented On 3 9:20AM ; [facility] Patient education about a pr oper diet Last Documented On 3 9:20AM ; [facility] Discussed concerns about exe rcise : promote physical activity Last Documented On 3 9:20AM ; [facility] Discussed nutritional needs teach healthy choices including fruits and vegetables Last Documented On 3 2:02PM ; [facility] Patient education about a pr oper diet Last Documented On 3 2:02PM ; [facility] Discussed concerns about exe rcise : promote physical activity Last Documented On 3 2:02PM ; [facility] Discussed nutritional needs teach healthy choices including fruits and vegetables Last Documented On 3 8:32AM ; [facility] Patient education about a pr oper diet Last Documented On 3 8:32AM ; [facility] Discussed concerns about exe rcise : promote physical activity Last Documented On 3 8:32AM ; [facility] Discussed nutritional needs teach healthy choices including fruits and vegetables Last Documented On 3 11:28AM ; [facility] Patient education about a pr oper diet Last Documented On 3 11:28AM ; [facility] Discussed concerns about exe rcise : promote physical activity Last Documented On 3 11:28AM ; [facility] Discussed nutritional needs teach healthy choices including fruits and vegetables Last Documented On 2 2:01PM ; [facility] Patient education about a pr oper diet Last Documented On 2 2:01PM ; [facility] Discussed concerns about exe rcise : promote physical activity Last Documented On 2 2:01PM ; [facility] Discussed nutritional needs teach healthy choices including fruits and vegetables Last Documented On 2 2:11PM ; [facility] Patient education about a pr oper diet Last Documented On 2 2:11PM ; [facility] Discussed concerns about exe rcise : promote physical activity Last Documented On 2 2:11PM ; [facility] Discussed current self-care methods/coping skills. ~Validated and normalized pt's feelings while assisting patient process recent events. ~Discussed ongoing counseling. ~Discussed lifestyle changes to address chronic illness. ~Supported patient's personal health goals ~wordfinds. walk, read, eat, enjoy my best friesnd Last Documented On 2 5:54PM ; [facility] Discussed nutritional needs teach healthy choices including fruits and vegetables Last Documented On 2 10:04AM ; [facility] Patient education about a pr oper diet Last Documented On 2 10:04AM ; [facility] Discussed concerns about exe rcise : promote physical activity Last Documented On 2 10:04AM ; [facility] Discussed nutritional needs teach healthy choices including fruits and vegetables Last Documented On 2 1:25PM ; [facility] Patient education about a pr oper diet Last Documented On 2 1:25PM ; [facility] Discussed concerns about exe rcise : promote physical activity Last Documented On 2 1:25PM ; [facility] Discussed nutritional needs teach healthy choices including fruits and vegetables Last Documented On 1 10:08AM ; [facility] Patient education about a pr oper diet Last Documented On 1 10:08AM ; [facility] Discussed concerns about exe rcise : promote physical activity Last Documented On 1 10:08AM ; [facility] Discussed nutritional needs teach healthy choices including fruits and vegetables Last Documented On 1 1:12PM ; [facility] Patient education about a pr oper diet Last Documented On 1 1:12PM ; [facility] Patient education about a pr oper diet Last Documented On 1 1:30PM ; [facility] Patient education about meal planning Last Documented On 1 1:30PM ; [facility] Education about changing eat ing habits Last Documented On 1 1:30PM ; [facility] Patient education about high fiber diet Last Documented On 1 1:30PM ; [facility] Patient education about low fat diet Last Documented On 1 1:30PM ; [facility] Patient education about low cholesterol diet Last Documented On 1 1:30PM ; [facility] Patient education about low carbohydrate diet Last Documented On 1 1:30PM ; [facility] Patient education about high protein diet Last Documented On 1 1:30PM ; [facility] Discussed concerns about exe rcise : promote physical activity Last Documented On 1 1:12PM ; [facility] Education/counseling conduct ed by pharmacist Last Documented On 0 1:39PM ; [facility] Vaccination counseling Last Documented On 0 1:39PM ; [facility] Discussed concerns about exe rcise : promote physical activity Last Documented On 0 2:16PM ; [facility] Patient goals decrease short ness of breath episodes Last Documented On 0 2:11PM ; [facility] Patient states that she uses her [...] recently Last Documented On 0 2:24PM ; [facility] Patient education about a pr oper diet Last Documented On 0 2:54PM ; [facility] Patient education about meal planning Last Documented On 0 2:54PM ; [facility] Education about changing eat ing habits Last Documented On 0 2:54PM ; [facility] Patient education about high fiber diet Last Documented On 0 2:54PM ; [facility] Patient education about low fat diet Last Documented On 0 2:54PM ; [facility] Patient education about low cholesterol diet Last Documented On 0 2:54PM ; [facility] Patient education about low carbohydrate diet Last Documented On 0 2:54PM ; [facility] Patient education about high protein diet Last Documented On 0 2:54PM ; [facility] Discussed nutritional needs teach healthy choices including fruits and vegetables Last Documented On 0 11:11AM ; [facility] Patient education about a pr oper diet Last Documented On 0 11:11AM ; [facility] Patient education about a pr oper diet Last Documented On 0 11:28AM ; [facility] Patient education about meal planning Last Documented On 0 11:28AM ; [facility] Education about changing eat ing habits Last Documented On 0 11:28AM ; [facility] Patient education about high fiber diet Last Documented On 0 11:28AM ; [facility] Patient education about low fat diet Last Documented On 0 11:28AM ; [facility] Patient education about low cholesterol diet Last Documented On 0 11:28AM ; [facility] Patient education about low carbohydrate diet Last Documented On 0 11:28AM ; [facility] Patient education about high protein diet Last Documented On 0 11:28AM ; [facility] Discussed concerns about exe rcise : promote physical activity Last Documented On 0 11:11AM ; [facility] Education/counseling conduct ed by pharmacist Last Documented On 0 1:41PM ; [facility] Patient states that she lonnie gonzalez [...] own Last Documented On 0 2:08PM ; [facility] Education/counseling conduct ed by pharmacist Last Documented On 9 1:12PM ; [facility] Patient states that she lonnie gonzalez has issues with her inhaler with the spacer. Patient did not bring in inhaler or spacer. Patient was told to bring in inhalers at next scheduled visit for pharmacist to assess inhalation technique. Patient is agreeable Last Documented On 9 1:13PM ; [facility] Patient goals Start using ch deon to help with inhaling dulera Last Documented On 9 2:40PM ; [facility] Patient states that she is g [...] vaccines Last Documented On 9 2:51PM ; [facility] Discussed nutritional needs teach healthy choices including fruits and vegetables Last Documented On 9 9:29AM ; [facility] Patient education about a pr oper diet Last Documented On 9 9:29AM ; [facility] Discussed concerns about exe rcise : promote physical activity Last Documented On 9 9:29AM ; [facility] Work Phone: 1(427) 793-948605-02-2024 Instructions Includes: Instructions for all patient encounters Instructions to patient Intervention and counseling on cessation of tobacco use, 3-10 minutes Discussed medication and nicotine replacement for tobacco cessation Last Documented On 3 8:54AM ; [facility] Intervention and counseling on cessation of tobacco use, 3-10 minutes Discussed medication and nicotine replacement for tobacco cessation Last Documented On 2 1:56PM ; [facility] Intervention and counseling on cessation of tobacco use, 3-10 minutes Last Documented On 0 2:07PM ; [facility] Return to the clinic if cond ition worsens or new symptoms arise Last Documented On 9 1:59PM ; [facility] Intervention and counseling on cessation of tobacco use, 3-10 minutes Last Documented On 9 10:39AM ; [facility] Education and Decision Aids were provided during visit for: Discussed nutritional needs teach healthy choices including fruits and vegetables Last Documented On 3 10:55AM ; [facility] Patient education about a pr oper diet Last Documented On 3 10:55AM ; [facility] Discussed concerns about exe rcise : promote physical activity Last Documented On 3 10:55AM ; [facility] Discussed nutritional needs teach healthy choices including fruits and vegetables Last Documented On 3 9:37AM ; [facility] Patient education about a pr oper diet Last Documented On 3 9:37AM ; [facility] Discussed concerns about exe rcise : promote physical activity Last Documented On 3 9:37AM ; [facility] Not requesting contraception Last Documented On 3 9:37AM ; [facility] Discussed nutritional needs teach healthy choices including fruits and vegetables Last Documented On 3 9:20AM ; [facility] Patient education about a pr oper diet Last Documented On 3 9:20AM ; [facility] Discussed concerns about exe rcise : promote physical activity Last Documented On 3 9:20AM ; [facility] Discussed nutritional needs teach healthy choices including fruits and vegetables Last Documented On 3 2:02PM ; [facility] Patient education about a pr oper diet Last Documented On 3 2:02PM ; [facility] Discussed concerns about exe rcise : promote physical activity Last Documented On 3 2:02PM ; [facility] Discussed nutritional needs teach healthy choices including fruits and vegetables Last Documented On 3 8:32AM ; [facility] Patient education about a pr oper diet Last Documented On 3 8:32AM ; [facility] Discussed concerns about exe rcise : promote physical activity Last Documented On 3 8:32AM ; [facility] Discussed nutritional needs teach healthy choices including fruits and vegetables Last Documented On 3 11:28AM ; [facility] Patient education about a pr oper diet Last Documented On 3 11:28AM ; [facility] Discussed concerns about exe rcise : promote physical activity Last Documented On 3 11:28AM ; [facility] Discussed nutritional needs teach healthy choices including fruits and vegetables Last Documented On 2 2:01PM ; [facility] Patient education about a pr oper diet Last Documented On 2 2:01PM ; [facility] Discussed concerns about exe rcise : promote physical activity Last Documented On 2 2:01PM ; [facility] Discussed nutritional needs teach healthy choices including fruits and vegetables Last Documented On 2 2:11PM ; [facility] Patient education about a pr oper diet Last Documented On 2 2:11PM ; [facility] Discussed concerns about exe rcise : promote physical activity Last Documented On 2 2:11PM ; [facility] Discussed current self-care methods/coping skills. ~Validated and normalized pt's feelings while assisting patient process recent events. ~Discussed ongoing counseling. ~Discussed lifestyle changes to address chronic illness. ~Supported patient's personal health goals ~wordfinds. walk, read, eat, enjoy my best friesnd Last Documented On 2 5:54PM ; [facility] Discussed nutritional needs teach healthy choices including fruits and vegetables Last Documented On 2 10:04AM ; [facility] Patient education about a pr oper diet Last Documented On 2 10:04AM ; [facility] Discussed concerns about exe rcise : promote physical activity Last Documented On 2 10:04AM ; [facility] Discussed nutritional needs teach healthy choices including fruits and vegetables Last Documented On 2 1:25PM ; [facility] Patient education about a pr oper diet Last Documented On 2 1:25PM ; [facility] Discussed concerns about exe rcise : promote physical activity Last Documented On 2 1:25PM ; [facility] Discussed nutritional needs teach healthy choices including fruits and vegetables Last Documented On 1 10:08AM ; [facility] Patient education about a pr oper diet Last Documented On 1 10:08AM ; [facility] Discussed concerns about exe rcise : promote physical activity Last Documented On 1 10:08AM ; [facility] Discussed nutritional needs teach healthy choices including fruits and vegetables Last Documented On 1 1:12PM ; [facility] Patient education about a pr oper diet Last Documented On 1 1:12PM ; [facility] Patient education about a pr oper diet Last Documented On 1 1:30PM ; [facility] Patient education about meal planning Last Documented On 1 1:30PM ; [facility] Education about changing eat ing habits Last Documented On 1 1:30PM ; [facility] Patient education about high fiber diet Last Documented On 1 1:30PM ; [facility] Patient education about low fat diet Last Documented On 1 1:30PM ; [facility] Patient education about low cholesterol diet Last Documented On 1 1:30PM ; [facility] Patient education about low carbohydrate diet Last Documented On 1 1:30PM ; [facility] Patient education about high protein diet Last Documented On 1 1:30PM ; [facility] Discussed concerns about exe rcise : promote physical activity Last Documented On 1 1:12PM ; [facility] Education/counseling conduct ed by pharmacist Last Documented On 0 1:39PM ; [facility] Vaccination counseling Last Documented On 0 1:39PM ; [facility] Discussed concerns about exe rcise : promote physical activity Last Documented On 0 2:16PM ; [facility] Patient goals decrease short ness of breath episodes Last Documented On 0 2:11PM ; [facility] Patient states that she uses her [...] recently Last Documented On 0 2:24PM ; [facility] Patient education about a pr oper diet Last Documented On 0 2:54PM ; [facility] Patient education about meal planning Last Documented On 0 2:54PM ; [facility] Education about changing eat ing habits Last Documented On 0 2:54PM ; [facility] Patient education about high fiber diet Last Documented On 0 2:54PM ; [facility] Patient education about low fat diet Last Documented On 0 2:54PM ; [facility] Patient education about low cholesterol diet Last Documented On 0 2:54PM ; [facility] Patient education about low carbohydrate diet Last Documented On 0 2:54PM ; [facility] Patient education about high protein diet Last Documented On 0 2:54PM ; [facility] Discussed nutritional needs teach healthy choices including fruits and vegetables Last Documented On 0 11:11AM ; [facility] Patient education about a pr oper diet Last Documented On 0 11:11AM ; [facility] Patient education about a pr oper diet Last Documented On 0 11:28AM ; [facility] Patient education about meal planning Last Documented On 0 11:28AM ; [facility] Education about changing eat ing habits Last Documented On 0 11:28AM ; [facility] Patient education about high fiber diet Last Documented On 0 11:28AM ; [facility] Patient education about low fat diet Last Documented On 0 11:28AM ; [facility] Patient education about low cholesterol diet Last Documented On 0 11:28AM ; [facility] Patient education about low carbohydrate diet Last Documented On 0 11:28AM ; [facility] Patient education about high protein diet Last Documented On 0 11:28AM ; [facility] Discussed concerns about exe rcise : promote physical activity Last Documented On 0 11:11AM ; [facility] Education/counseling conduct ed by pharmacist Last Documented On 0 1:41PM ; [facility] Patient states that she lonnie gonzalez [...] own Last Documented On 0 2:08PM ; [facility] Education/counseling conduct ed by pharmacist Last Documented On 9 1:12PM ; [facility] Patient states that she lonnie gonzalez has issues with her inhaler with the spacer. Patient did not bring in inhaler or spacer. Patient was told to bring in inhalers at next scheduled visit for pharmacist to assess inhalation technique. Patient is agreeable Last Documented On 9 1:13PM ; [facility] Patient goals Start using ch deon to help with inhaling dulera Last Documented On 9 2:40PM ; [facility] Patient states that she is g [...] vaccines Last Documented On 9 2:51PM ; [facility] Discussed nutritional needs teach healthy choices including fruits and vegetables Last Documented On 9 9:29AM ; [facility] Patient education about a pr oper diet Last Documented On 9 9:29AM ; [facility] Discussed concerns about exe rcise : promote physical activity Last Documented On 9 9:29AM ; [facility] Work Phone: 1(721) 825-311605-01-2024 Progress note* Progress note Date Encounter Last Documented by 10/02/2023 Chart Update Last documented on 10/03/2023; 8:39 AM, Karla Clark CNP; [facility] Active Problems & Conditions - J20.9 [...] once daily, 0 days, 0 refills - Hawk Run Carbonate 150 MG Oral Capsule one capsule [...] Bipolar disorder NOS Depression Heart Attack 03/2021 [facility]. Surgical: - General surgery right shoulder ORIF [...] Reminders - Mammogram Needed satisfied 05/28/2024. [facility]04-26-2024 NoteHNO ID: [id number] Author: YANDEL DANIEL MD Service: ? Author Type: Physician Type: Progress Notes Filed: 09/28/2023 13:37 Note Text: Gail Almeida [id number] September 27, 2023 [facility] Note [...] by mouth every 12 hours as needed. sbjloc-fxcmyblu-zrnjeyf (ENZADYNE) 9,000-112,500- 112,500 unit capsule Take 1 [...] Almeida. I discussed the management of Gail Blackburn Robbiebret with the resident. I reviewed the resident's note and agree with the documented findings and plan of care. Yandel Daniel [facility]04-26-2024 Nurse Note* Fabienne Deleon OCCA - 09/27/2023 9:29 AM EDT Tobacco Use: .25 packs/day, for 40 years. Types: Cigarettes Was smoking cessation packet given? Patient Declined Was a referral initiated?Patient declined. [facility]04-26-2024 Nurse Note* Fabienne Deleon OCCA - 09/27/2023 9:29 AM EDT Tobacco Use: .25 packs/day, for 40 years. Types: Cigarettes Was smoking cessation packet given? Patient Declined Was a referral initiated?Patient declined. documented [facility]04-[facility] History of Present illness Narrative* Yandel Daniel MD - 09/27/2023 9:15 AM EDT Gail Blackburn Robbiebret [id number] September 27, 2023 [facility] Note [...] by mouth every 12 hours as needed. vvbtxg-wyrwvcjf-iunkyfw (ENZADYNE) 9,000-112,500- 112,500 unit capsule Take 1 [...] care. Yandel Daniel MD documented [facility]04-[facility]-2024 Miscellaneous Notes* Telephone Encounter - Radha Brice RN - 09/03/2023 7:59 AM EDT No return call for Lenardre. Closing encounter. * Telephone Encounter - Radha Brice RN - 08/09/2023 4:27 PM EST Called [facility] Transferred to [facility]. No answer phone continued ringing no voicemail available. * Telephone Encounter - Nena Rodriguez - 08/09/2023 9:42 AM EST Person Calling: Margaux - RN at [facility] Reason for Call: patient is going to need refills on levothyroxine and calcium carbonate. She was unsure if we would fill that request or her pcp Margaux: [phone] Pharmacy Name and # : [place] [address] - [address] [facility] - [address] [place] [address] [address] [place] [id number] Pt last seen: 06/28/2023 Nena Rodriguez documented in [facility] encounterMer[facility]03-[facility]-2024 Discharge summary Author Reynaldo Kraft [facility] August 20, 2023 12:42pm Note Date/Time August 20, 2023 8:5 0am [facility] [address] [place] [address] Discharge Summary Signed Patient: Gail Almeida MR#: [id number] : 1955 Acct:[id number] Age/Sex: 67 / F Adm Date: 4 Loc: Room: [address] [place] [address]: Joe Davis MD Copies to: [...] 2 times total 1 time here in [facility] and another time at a different hospital Past suicide attempts: Denies previous suicidal attempts Previous medications: Reports Seroquel, Hawk Run, Zyprexa, Cogentin Alcohol and Drug Use: Denies alcohol use. Denies street drugs. Smokes 3 to 4cigarettes a day Living: 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 She [...] Instructions: Important Contact Information You can call [facility] Inpatient Behavioral Health at [phone] any time day or night if you have emergent questions or question regarding discharge instructions. If at any time you are feeling an increase inyour psychiatric symptoms, call your physician or behavioral healthcare provider. If any time you have thoughts of harming yourself or others contact one of the following: Call 8 (available 24/12) Crisis Text Line (available 24/12) text 4HOPE to 419298 [facility] Hope Line (available 8 a.m. Midnight) call [phone] ([phone]) Regular Diet No Activity Restrictions Instructions: Schizoaffective Disorder (DC), [facility] [place] Instructions Prescriptions: New lithium [...] mg PO DAILY fluticasone propionate 50 mcg/actuation Nordman,Suspension 1 spray INTRANASAL BID Rx Instructions: inhale [...] tablet 10 mg PO QHS Follow Up: [facility] [Outside] - 09/10/23 8:40 am (A case management rn will call you on Saturday08/21/23 between 8:00am and 12:00pm. Psychiatry: Saturday09/10/23 at 8:40am with Dr. Galicia. ) Karla Clark, RODNEY, CARDIO CLINICIAN-C [Referring] - (Contact your PCP with medical needs. ) Documented By: Reynaldo Kraft MD 08/20/23 0870 Signed By: <Electronically signed by Reynaldo Kraft MD> 08/20/[address] [facility] Work Phone: 1(669) 764-408603-18-2024 Progress note Author Reynaldo Kraft [facility] August 19, 2023 12:04pm Note Date/Time August 19, 2023 12: 04pm [facility] [address] [place] [address] Psychiatry Progress Note Signed Patient: Gail Almeida MR#: [id number] : 1955 Acct:[id number] Age/Sex: 67 / F Adm Date: 4 Loc: 1S Room: [address] [place] [address] Type : ADM IN Attending Dr: Joe [...] PO BID and 400 mg PO HS Hawk Run 300 mg PO BID. Cipro 500mg PO BID Continue to monitor mental status Encourage group participation and medication compliance Risk benefits alternatives explained Documented By: Reynaldo Kraft MD 08/19/231202 Signed By: <Electronically signed by Reynaldo Kraft MD> 08/19/[address] [facility] Work Phone: 1(265) 169-554703-17-2024 Progress note Author Joe rodriguez [facility] August 18, 2023 9:29am Note Date/Time August 18, 2023 9:2 9am [facility] [address] [place] [address] Psychiatry Progress Note Signed Patient: Gail Almeida MR#: [id number] : 1955 Acct:[id number] Age/Sex: 67 / F Adm Date: 4 Loc: 1S Room: 9M5084-8 Type : ADM IN Attending Dr: Joe [...] PO BID and 400 mg PO HS Hawk Run 300 mg PO BID. Obtain lithium level. [...] signed by Joe Davis MD> 08/18/[address] [facility] Work Phone: 1(962) 231-408603-16-2024 Progress note Author Joe rodriguez [facility] August 17, 2023 6:38am Note Date/Time August 17, 2023 6:3 9am [facility] [address] [place] [address] Psychiatry Progress Note Signed Patient: Gail Almeida MR#: [id number] : 1955 Acct:[id number] Age/Sex: 67 / F Adm Date: 4 Loc: Room: [address] [place] [address] Type : ADM IN Attending Dr: Joe [...] 28.6 L TSH 3rd Generation 9.75 H Hawk Run 0.50 L Assessment/Plan Assessment/Plan (1) Schizoaffective disorder: Plan Patient denied any hallucinations this am. No SI/HI. Cogentin 0.5 mg PO BID Clonidine 0.1 mg PO Daily Zyprexa 5 mg PO Daily and 12.5 mg PO QHS Seroquel 12.5 mg PO BID and 400 mg PO HS Hawk Run 300 mg PO BID. Obtain lithium level. [...] signed by Joe Davis MD> 08/17/[address] [facility] Work Phone: 1(596) 871-939103-15-2024 History and physical note Author Joe rodriguez [facility] August 16, 2023 12:20pm Note Date/Time August 16, 2023 11: 24am [facility] [address] [place] [address] Psychiatry H&P Signed Patient: Gail Almeida MR#: [id number] : 1955 Acct:[id number] Age/Sex: 67 / F Adm Date: 4 Loc: Room: [address] [place] [address] Type: ADM IN Attending Dr: Joe Davis [...] 2 times total 1 time here in [facility] and another time at a different hospital Past suicide attempts: Denies previous suicidal attempts Previous medications: Reports Seroquel, Hawk Run, Zyprexa, Cogentin Alcohol and Drug Use: Denies alcohol use. Denies street drugs. Smokes 3 to 4cigarettes a day Living: 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 Review of symptoms: Constitutional: Denies chills and [...] SI, HI, hallucination Insight: Poor Judgment: Poor [facility] Medical History Localized swelling, mass and lump, [...] oral powder 17 g PO DAILY PRN Qqlokhswirmr37/10/23 [History Confirmed 08/15/23] quetiapine 400 mg tablet,extended [...] 08/15/23] dextromethorphan-guaifenesin 30 mg-600 mg tablet extended gtkczuo03 hr (Mucus DM) 1 tab PO Q12HR [...] Appearance Clear Urine pH 7.0 Ur Specific [place] 1.005 Urine Protein Negative Urine Glucose (UA) Normal Urine Ketones Negative Urine Occult Blood Negative Urine Nitrite Negative Ur Leukocyte Esterase 3+ H Urine RBC None seen Urine WBC 3-4 Hawk Run 0.50 L Assessment/Plan (1) Schizoaffective disorder: Plan [...] PO BID and 400 mg PO HS Hawk Run 300 mg PO BID. Obtain lithium level. [...] signed by Joe Davis MD> 08/16/23 1220 [facility] Work Phone: 1(363) 475-469002-13-2024 History of Present illness Narrative* Dakota Mack [...] Visit: pending biopsy results documented in this encounterSamaritan HospitalVstjfoewij17-19-3904 NoteHNO ID: [id number] Author: YANDEL DANIEL MD Service: ? Author Type: Physician Type: Progress Notes Filed: 06/28/2023 15:37 Note Text: [facility] Note CC: Post op of [...] by mouth every 12 hours as needed. euunvx-ugijkrty-eqmfrkm (ENZADYNE) 9,000-112,500- 112,500 unit capsule Take 1 [...] follow up Follow up 4 months MD Lev Mccabeibe Attestation: By signing my name below, I, Zora Mtz, attest that this documentation has been prepared under the direction and in the presence of Yandel Daniel MD. Electronically Signed: lata Diallo, June 28, 2023 1:53 PM June 28, 2023 I participated in t (more content not included)...[facility] 06-22-2023 NoteHNO ID: [id number] Author: IAN WITT MD Service: Otolaryngology Author Type: Resident Type: Progress Notes Filed: 06/22/2023 09:24 Note Text: [facility] OTOLARYNG[facility] - HEAD AND NECK SURGERY PROGRESS NOTE PAGE [phone] AFTER 1700 AND ON WEEKENDS Patient Name: [...] Head and Neck Surgery PGY 3 Pager: [phone] Service pager: [phone] (page after 5pm and on weekends) SUBJECTIVE: [...] 0659 06/22/23 07 - 06/23/23 0659 Shift 3890-6620 5101-1925 9387-2491 24 Hour Total 4890-0721 4945-3464 2629-1869 24 Hour Total INTAKE PO(mL/kg) 840(12.92) 1290(19.85) 740(11.38) 2870(44.15) 360(5.54) 360(5.54) PO 840 3882 320 1366 360 360 Shift Total(mL/kg) 840(12.92) 1290(19.85) 740(11.38) [...] Stage 2 chronic kidney disease Goiter POA: [facility]01-19-2024 NoteHNO ID: [id number] Author: CHRIS LIVINGSTON RN Service: Care Management Author Type: Registered Nurse Type: Care Mgt Progress Note Filed: 06/21/2023 15:12 Note Text: CARE MANAGEMENT PROGRESS NOTE SERVICE DATE: 06/21/2023 SERVICE TIME: 2:26 PM LOS: 0 days Medically cleared for discharge back to Assisted Living [address] [address] ([phone]) CM spoke with [facility] no long distance transport today or this weekend due to the weather. CM spoke with nurse Karma at the AL she will see if they can get transport and will call CM back. Addendum: 2:50 PM Prachi the nurse from OR called back they have no transport either: secure message sent to team. Waiting for response. Addendum: 3:10 PM CM spoke with Prachi again stated they have their own van that will pick the patient up at 11:00 AM Thursday 06/22, the commercial driver's license driver will call the CM when they arrive. SIGNATURE: Chris Livingston RN PATIENT NAME: Gail Almeida DATE: June 21, 2023 TIME: 2:26 PM PAGER/CONTACT #: N/[facility]01-19-2024 NoteHNO ID: [id number] Author: GEMA CARVALHO MD Service: Endocrinology Author Type: Fellow Type: Plan of Care Filed: 06/21/2023 14:11 Note Text: Paged primary team about the consult to endocrine. Per primary they are discharging patient and would follow up outpatient. Was asked to D/C consult per , ENT resident.[facility] 06-21-2023 NoteHNO ID: [id number] Author: JANIS GATES MD Service: Otolaryngology Author Type: Resident Type: Progress Notes Filed: 06/21/2023 10:11 Note Text: [facility] OT[facility]Y - HEAD AND NECK SURGERY PROGRESS NOTE PAGE [phone] AFTER 1700 AND ON WEEKENDS Patient Name: [...] incisions BID - Dispo: please transfer to G Janis Gates, PGY-2, Otolaryngology Service Pager: [phone] Pager: [phone] June 19, 2023 9:13 AM For questions after 5 PM and on weekends, please page [phone]. SUBJECTIVE: No acute events overnight. Pain well-controlled [...] 0659 06/21/23 0700 - 06/22/23 0659 Shift 2647-5132 6637-4818 2736-2790 24 Hour Total 6163-4132 2968-4558 7967-6866 24 Hour Total INTAKE PO 720 5322 006 2682 480 480 PO 720 8173 065 0703 480 480 IV 100 100 100 300 Volume (mL) (ceFAZolin iv piggyback 2 g in D5W (iso-osmotic) 100 mL (ANCEF)) 100 100 100 300 Shift Total 820 3919 134 4994 480 480 OUTPUT Urine 1050 9884 809 2006 Void (ml) 1050 2824 045 3181 Urine Not Saved. 2 x 2 x 2 x 2 x Tubes 15 10 7.5 32.5 Drain/Tube Output (Drain/Tube 06/18/[address] [facility] Throat) 15 10 7.5 [...] BID w MEALS famotidine (more content not included)...[facility]01-18-2024 NoteHNO ID: [id number] Author: JANIS GATES MD Service: Otolaryngology Author Type: Resident Type: Progress Notes Filed: 06/20/2023 07:09 Note Text: [facility] OT[facility]Y - HEAD AND NECK SURGERY PROGRESS NOTE PAGE [phone] AFTER 1700 AND ON WEEKENDS Patient Name: [...] output q8h - Dispo: please transfer to [facility] Janis Gates, PGY-2, Otolaryngology Service Pager: [phone] Pager: [phone] June 19, 2023 9:13 AM For questions after 5 PM and on weekends, please page [phone]. SUBJECTIVE: No acute events overnight. Pain well-controlled [...] 0659 06/20/23 0700 - 06/21/23 0659 Shift 1106-7489 3323-5716 8198-9306 24 Hour Total 1945-9948 2601-6861 5998-4607 24 Hour Total INTAKE PO 4320 761 701 2065 PO 4320 406 144 5285 IV 100 100 Volume (mL) (ceFAZolin iv piggyback 2 g in D5W (iso-osmotic) 100 mL (ANCEF)) 100 100 Shift Total 4320 193 992 0531 OUTPUT Urine 500 8599 362 6235 Void (ml) 500 4716 848 9942 Urine Not Saved. 2 x 2 x Tubes 50 27.5 17.5 95 Drain/Tube Output (Drain/Tube 06/18/[address] [facility] [address] [facility] Throat) 50 27.5 17.5 [...] Lozenge (CHLORASEPTIC) 1 Lozeng (more content not included)...[facility]01-17-2024 NoteHNO ID: [id number] Author: JANIS GATES MD Service: Otolaryngology Author Type: Resident Type: Progress Notes Filed: 06/19/2023 09:16 Note Text: [facility] OT[facility] - HEAD AND NECK SURGERY PROGRESS NOTE PAGE [phone] AFTER 1700 AND ON WEEKENDS Patient Name: [...] Dispo: MErvin Gates, PGY-2, Otolaryngology Service Pager: [phone] Pager: [phone] June 19, 2023 9:13 AM For questions after 5 PM and on weekends, please page [phone]. SUBJECTIVE: No acute events overnight. Pain well-controlled [...] Date 06/18/23 0700 - 06/19/23 0659 06/19/23 07 - 06/20/23 0659 Shift 6634-0814 4851-9964 9172-3628 24 Hour Total 5367-7492 7957-8713 6085-8760 24 Hour Total INTAKE PO 120 490 610 360 360 PO 120 490 610 360 360 IV 1100 0749 850 7519 OR Crystalloid intake (mL) 1100 1100 Volume (mL) (ceFAZolin iv piggyback 2 g in D5W (iso-osmotic) 100 mL (ANCEF)) 100 100 Volume (mL) (ceFAZolin iv piggyback 2 g in D5W (iso-osmotic) 100 mL (ANCEF)) 50 100 150 Volume (mL) (lactated ringers iv infusion) 125 125 Volume (mL) (lactated ringers iv infusion) 8416 553 9127 Volume (mL) (NaCl 0.9% iv infusion) 468 500 968 Shift Total 1100 1963 1090 4153 360 360 OUTPUT Urine 831 975 5114 300 300 Void (ml) 493 755 3776 300 300 Urine Incontinence/Not Saved 1 x 1 x Urine Not Saved. 1 x 1 x Tubes 40 17.5 57.5 Drain/Tube Output (Drain/Tube 06/18/[address] [facility] Throat) 40 17.5 57.5 [...] H PRN Or oxyCOD (more content not included)...[facility]01-17-2024 Note HNO ID: [id number] Author: JONATHAN VALENCIA RN Service: ? Author Type: Registered Nurse Type: Nursing Progress Note Filed: 06/19/2023 00:12 Note Text: Per Dr. Mendoza, draw PTH and ionized calcium together at 4 a.m.[facility]01-16-2024 NoteHNO ID: [id number] Author: JANETH VARGAS DO Service: ? Author [...] June 18, 2023 TIME: 12:58 PM CSN: [id number] [facility]24 NoteHNO ID: [id number] Author: JANETH VARGAS DO Service: ? 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, care steam conditioner filling and patient Staffing Anesthesiologist: Janeth Vargas DO [...] June 18, 2023 TIME: 12:45 PM CSN: [id number] [facility]12[facility]23 NoteHNO ID: [id number] Author: Yandel Daniel MD Service: ? Author Type: Physician Type: Progress Notes Filed: 05/30/2023 2:42 PM Note Text: [facility] Note CC: Preoperative appointment HPI: [...] by mouth every 12 hours as needed. xteibh-qbygbgik-btrrxgq (ENZADYNE) 9,000-112,500- 112,500 unit capsule Take 1 [...] total thyroidectomy as scheduled (more content not included)...[facility]12-28-2023 NoteHNO ID: [id number] Author: Alea Smith RT(R) Service: Radiology Author [...] BY: RT Mendoza(R) May 30, 2023 10:19 AM[id number] Evaluation note Includes: Assessments for all patient encounters Findings Encounter Date [D48.5 - Neoplasm of uncerta in behavior of skin] skin neoplasm of uncertain behavior Medical Established Patient with Karla Clark MINUTE CLERK FOR BASIC TRAFFIC 05/22/2023 Last Documented On 3 1:30PM ; [facility] [Z68.24 - Body mass index [B AZ] 24.0-24.9, adult] assessment of body mass index Medical Established Patient with Karla Clark MINUTE CLERK FOR BASIC TRAFFIC 05/22/2023 Last Documented On 3 1:30PM ; [facility] Assessment of tobacco use Medical Establ ished Patient with Karla Clark MINUTE CLERK FOR BASIC TRAFFIC 05/22/2023 Last Documented On 3 1:30PM ; [facility] [R30.0 - Dysuria] Dysuria Chart Update with Gary Clark MINUTE CLERK FOR BASIC TRAFFIC 03/21/2023 Last Documented On 3 11:27AM ; [facility] [Z12.39 - Encounter for othe r screening for malignant neoplasm of breast] visit for: screening for malignant breast neoplasm Medical Established Patient with Aaron Whitaker MINUTE CLERK FOR BASIC TRAFFIC 02/28/2023 Last Documented On 3 9:51AM ; [facility] [Z68.24 - Body mass index [B AZ] 24.0-24.9, adult] assessment of body mass index Medical Established Patient with Aaron Whitaker MINUTE CLERK FOR BASIC TRAFFIC 02/28/2023 Last Documented On 3 9:51AM ; [facility] Assessment of tobacco use Medical Establ ished Patient with Aaron Whitaker MINUTE CLERK FOR BASIC TRAFFIC 02/28/2023 Last Documented On 3 9:51AM ; [facility] Chronic obstructive pulmonary disease Me dical Established Patient with Aaron Whitaker MINUTE CLERK FOR BASIC TRAFFIC 02/28/2023 Last Documented On 3 9:51AM ; [facility] [J20.9 - Acute bronchitis, unspecified] acute bronchitis Medical Established Patient with Karla Clark MINUTE CLERK FOR BASIC TRAFFIC 11/19/2022 Last Documented On 3 10:15AM ; [facility] [M79.621 - Pain in right upp er arm] pain in upper arm Medical Established Patient with Karla Clark MINUTE CLERK FOR BASIC TRAFFIC 11/19/2022 Last Documented On 3 10:15AM ; [facility] [Z68.23 - Body mass index [B AZ] 23.0-23.9, adult] assessment of body mass index Medical Established Patient with Karla Clark MINUTE CLERK FOR BASIC TRAFFIC 11/19/2022 Last Documented On 3 10:15AM ; [facility] [M79.601 - Pain in right arm ] pain in right arm Medical Established Patient with Karla Clark MINUTE CLERK FOR BASIC TRAFFIC 09/18/2022 Last Documented On 3 2:33PM ; [facility] [Z68.24 - Body mass index [B AZ] 24.0-24.9, adult] assessment of body mass index Medical Established Patient with Karla Clark MINUTE CLERK FOR BASIC TRAFFIC 09/18/2022 Last Documented On 3 2:33PM ; [facility] Assessment of tobacco use Medical Establ ished Patient with Karla Clark MINUTE CLERK FOR BASIC TRAFFIC 09/18/2022 Last Documented On 3 2:33PM ; [facility] [M25.569 - Pain in unspecifi ed knee] arthralgia of knee / patella / tibia / fibula Medical Established Patient with Karla Clark MINUTE CLERK FOR BASIC TRAFFIC 08/27/2022 Last Documented On 3 9:20AM ; [facility] [Z68.24 - Body mass index [B AZ] 24.0-24.9, adult] assessment of body mass index Medical Established Patient with Karla Clark MINUTE CLERK FOR BASIC TRAFFIC 08/27/2022 Last Documented On 3 9:20AM ; [facility] Intervention and counseling on cessation of tobacco use, 3-10 minutes Discussed medication and nicotine replacement for tobacco cessation Medical Established Patient with Karla Clark MINUTE CLERK FOR BASIC TRAFFIC 08/27/2022 Last Documented On 3 9:20AM ; [facility] Nicotine dependence Medical Established Patient with Karla Clark MINUTE CLERK FOR BASIC TRAFFIC 08/27/2022 Last Documented On 3 9:20AM ; [facility] Visit for routine adult H&P without abnormal findings Medical Established Patient with Karla Clark MINUTE CLERK FOR BASIC TRAFFIC 08/27/2022 Last Documented On 3 9:20AM ; [facility] [H92.02 - Otalgia, left ear] earache Med ical Established Patient with Karla Clark MINUTE CLERK FOR BASIC TRAFFIC 06/18/2022 Last Documented On 3 12:11PM ; [facility] [M79.604 - Pain in right leg ] pain in right leg Medical Established Patient with Karla Clark MINUTE CLERK FOR BASIC TRAFFIC 06/18/2022 Last Documented On 3 12:11PM ; [facility] [Z68.24 - Body mass index [B AZ] 24.0-24.9, adult] assessment of body mass index Medical Established Patient with Karla Clark MINUTE CLERK FOR BASIC TRAFFIC 06/18/2022 Last Documented On 3 12:11PM ; [facility] Assessment of tobacco use Medical Establ ished Patient with Karla Clark MINUTE CLERK FOR BASIC TRAFFIC 06/18/2022 Last Documented On 3 12:11PM ; [facility] Diabetes Risk Test Score was four score 06/18/2022 Medical Established Patient with Karla Clark MINUTE CLERK FOR BASIC TRAFFIC 06/18/2022 Last Documented On 3 12:11PM ; [facility] Schizoaffective disorder Established Patient with Yin Feliz LPCC-S 03/20/2022 Last Documented On 2 12:13AM ; [facility] No cough Medical Established Patient with Karla Floresen MINUTE CLERK FOR BASIC TRAFFIC 12/20/2021 Last Documented On 2 3:12PM ; [facility] Visit for: screening for hum an immunodeficiency virus Medical Established Patient with Karla Clark MINUTE CLERK FOR BASIC TRAFFIC 12/20/2021 Last Documented On 2 3:12PM ; [facility] Z68.24 - Body mass index [BM I] 24.0-24.9, adult Medical Established Patient with Karla Floresen MINUTE CLERK FOR BASIC TRAFFIC 12/20/2021 Last Documented On 2 3:12PM ; [facility] Bipolar disorder NOS Established Patient with Yin Feliz LPCC-S 11/03/2021 Last Documented On 2 7:00PM ; [facility] Bipolar schizoaffective disorder BH Esta blished Patient with Yin Feliz LPCC-S 11/03/2021 Last Documented On 2 7:00PM ; [facility] PLAN Medical Established Patient with Don Pino MD 11/03/2021 Last Documented On 2 10:40AM ; [facility] Abnormal electrocardiogram Medical Estab lished Patient with Don Pino MD 11/03/2021 Last Documented On 2 10:40AM ; [facility] Z68.24 - Body mass index [BM I] 24.0-24.9, adult Medical Established Patient with Don Pino MD 11/03/2021 Last Documented On 2 10:40AM ; [facility] Cough Medical Established Patient with Karla Clark MINUTE CLERK FOR BASIC TRAFFIC 07/28/2021 Last Documented On 2 2:01PM ; [facility] Intervention and counseling on cessation of tobacco use, 3-10 minutes Discussed medication and nicotine replacement for tobacco cessation Medical Established Patient with Karlajulius Clark MINUTE CLERK FOR BASIC TRAFFIC 07/28/2021 Last Documented On 2 2:01PM ; [facility] Nicotine dependence Medical Established Patient with Karla Amber MINUTE CLERK FOR BASIC TRAFFIC 07/28/2021 Last Documented On 2 2:01PM ; [facility] Z68.24 - Body mass index [BM I] 24.0-24.9, adult Medical Established Patient with Karla Clark MINUTE CLERK FOR BASIC TRAFFIC 07/28/2021 Last Documented On 2 2:01PM ; [facility] Assess Colon screening Medical Established Patie nt with Karla Clark MINUTE CLERK FOR BASIC TRAFFIC 05/08/2021 Last Documented On 1 10:59AM ; [facility] Diabetes Risk Test Score was four score 05/08/2021 Medical Established Patient with Karla Clark MINUTE CLERK FOR BASIC TRAFFIC 05/08/2021 Last Documented On 1 10:59AM ; [facility] Routine adult history and ph ysical (18-64 yrs) without abnormal findings Medical Established Patient with Karla Amber MINUTE CLERK FOR BASIC TRAFFIC 05/08/2021 Last Documented On 1 10:59AM ; [facility] Z68.24 - Body mass index [BM I] 24.0-24.9, adult Medical Established Patient with Karla Amber MINUTE CLERK FOR BASIC TRAFFIC 05/08/2021 Last Documented On 1 10:59AM ; [facility] Z68.24 - Body mass index [BM I] 24.0-24.9, adult Medical Established Patient with Karla Amber MINUTE CLERK FOR BASIC TRAFFIC 06/17/2020 Last Documented On 1 10:30AM ; [facility] Overweight Medical Established Patient with Karla Amber MINUTE CLERK FOR BASIC TRAFFIC 06/06/2020 Last Documented On 1 2:06PM ; [facility] Z68.25 - Body mass index [BM I] 25.0-25.9, adult Medical Established Patient with Karlajulius Clark MINUTE CLERK FOR BASIC TRAFFIC 06/06/2020 Last Documented On 1 2:06PM ; [facility] Antiasthmatics [facility] Asthma Clinic-New with Karla Amber MINUTE CLERK FOR BASIC TRAFFIC 05/06/2020 Last Documented On 0 7:27PM ; [facility] Assessment of tobacco use [facility]-New with Karla Amber MINUTE CLERK FOR BASIC TRAFFIC 05/06/2020 Last Documented On 0 7:27PM ; [facility] Body mass index [facility] Clinic-New with Karlajulius Floresen MINUTE CLERK FOR BASIC TRAFFIC 05/06/2020 Last Documented On 0 7:27PM ; [facility] Chronic obstructive pulmonary disease S [facility] Clinic-New with Karlajulius Floresen [facility] 05/06/2020 Last Documented On 0 7:27PM ; [facility] Overweight [facility] Ast[facility] Clinic-New with Karlajulius Floresen MINUTE CLERK FOR BASIC TRAFFIC 05/06/2020 Last Documented On 0 7:27PM ; [facility] Z11.4 - Encounter for screen ing for human immunodeficiency virus [HIV] [facility] Asthma Clinic-New with Karla Clark MINUTE CLERK FOR BASIC TRAFFIC 05/06/2020 Last Documented On 0 7:27PM ; [facility] Diabetes Risk Test Score was three score 03/31/2020 Medical Established Patient with Karla Clark [facility] 03/31/2020 Last Documented On 0 3:22PM ; [facility] Overweight Medical Established Patient with Karla Amber MINUTE CLERK FOR BASIC TRAFFIC 03/31/2020 Last Documented On 0 3:22PM ; [facility] Z68.25 - Body mass index [BM I] 25.0-25.9, adult Medical Established Patient with Karlajulius Floresen MINUTE CLERK FOR BASIC TRAFFIC 03/31/2020 Last Documented On 0 3:22PM ; [facility] Encounter for Immunization Nurse Visit with Gary Clark MINUTE CLERK FOR BASIC TRAFFIC 03/14/2020 Last Documented On 0 5:11PM ; [facility] Body mass index Medical Established Patient with Karla Amber MINUTE CLERK FOR BASIC TRAFFIC 02/26/2020 Last Documented On 0 1:18PM ; [facility] Overweight Medical Established Patient with Karla Amber MINUTE CLERK FOR BASIC TRAFFIC 02/26/2020 Last Documented On 0 1:18PM ; [facility] Overweight Medical Established Patient with Karla Amber MINUTE CLERK FOR BASIC TRAFFIC 07/23/2019 Last Documented On 0 2:33PM ; [facility] Z68.27 - Body mass index (BM I) 27.0-27.9, adult Medical Established Patient with Karla Amber MINUTE CLERK FOR BASIC TRAFFIC 07/23/2019 Last Documented On 0 2:33PM ; [facility] Occasional asthma [facility]- [facility]- F/U with A imjulius Floresen MINUTE CLERK FOR BASIC TRAFFIC 06/05/2019 Last Documented On 0 7:04PM ; [facility] Overweight [facility]- [facility]- F/U with Aim ee Amber MINUTE CLERK FOR BASIC TRAFFIC 06/05/2019 Last Documented On 0 7:04PM ; [facility] Z68.27 - Body mass index (BM I) 27.0-27.9 adult [facility]- [facility]- F/U with Karlaujlius Floresen MINUTE CLERK FOR BASIC TRAFFIC 06/05/2019 Last Documented On 0 7:04PM ; [facility] Occasional asthma CPS Med Review with Karla Sandra en MINUTE CLERK FOR BASIC TRAFFIC 04/23/2019 Last Documented On 9 4:01PM ; [facility] Overweight CPS Med Review with Karla Amber MINUTE CLERK FOR BASIC TRAFFIC 04/23/2019 Last Documented On 9 4:01PM ; [facility] Z68.27 - Body mass index (BM I) 27.0-27.9 adult CPS Med Review with Karla Amber MINUTE CLERK FOR BASIC TRAFFIC 04/23/2019 Last Documented On 9 4:01PM ; [facility] Acute pharyngitis Medical Established Patient wi th Brandy Warren MINUTE CLERK FOR BASIC TRAFFIC 04/15/2019 Last Documented On 9 12:31PM ; [facility] Asthmatic bronchitis with ac [place] exacerbation Medical Established Patient with Brandy Warren MINUTE CLERK FOR BASIC TRAFFIC 04/15/2019 Last Documented On 9 12:31PM ; [facility] Fagerstrom Score was two Medical Established Pat ient with Brandy Serranoer MINUTE CLERK FOR BASIC TRAFFIC 04/15/2019 Last Documented On 9 12:31PM ; [facility] PHQ-9: total score was three 04/15/2019 Medical Established Patient with Brandy Warren MINUTE CLERK FOR BASIC TRAFFIC 04/15/2019 Last Documented On 9 12:31PM ; [facility] Body mass index Medical Established Patient with Karlajulius Floresen MINUTE CLERK FOR BASIC TRAFFIC 03/05/2019 Last Documented On 9 10:27AM ; [facility] Diabetes Risk Test Score was three score Medical Established Patient with Karla Amber MINUTE CLERK FOR BASIC TRAFFIC 03/05/2019 Last Documented On 9 10:27AM ; [facility] Overweight Medical Established Patient with Karla Amber MINUTE CLERK FOR BASIC TRAFFIC 03/05/2019 Last Documented On 9 10:27AM ; [facility] Z68.28 - Body mass index (BM I) 28.0-28.9, adult Medical Established Patient with Karla Amber MINUTE CLERK FOR BASIC TRAFFIC 12/22/2018 Last Documented On 9 10:32AM ; [facility] Assess routine adult history and physical (18 - 64 yrs) Medical Established Patient with Karla Amber MINUTE CLERK FOR BASIC TRAFFIC 11/06/2018 Last Documented On 9 2:26PM ; [facility] Overweight Medical Established Patient with Karla Amber MINUTE CLERK FOR BASIC TRAFFIC 11/06/2018 Last Documented On 9 2:26PM ; [facility] Z68.28 - Body mass index (BM I) 28.0-28.9, adult Medical Established Patient with Karla Amber MINUTE CLERK FOR BASIC TRAFFIC 11/06/2018 Last Documented On 9 2:26PM ; [facility] Assess dysphagia Medical Established Patient wit h Karla Amber MINUTE CLERK FOR BASIC TRAFFIC 09/11/2018 Last Documented On 9 10:53AM ; [facility] Assess routine adult history and physical (18 - 64 yrs) Medical Established Patient with Karla Amber MINUTE CLERK FOR BASIC TRAFFIC 09/11/2018 Last Documented On 9 10:53AM ; [facility] Assess primary insomnia with sleep apnea Medical Established Patient with Karla Amber MINUTE CLERK FOR BASIC TRAFFIC 09/04/2018 Last Documented On 9 2:23PM ; [facility] Assess routine adult history and physical (18 - 64 yrs) Medical Established Patient with Karla Clark MINUTE CLERK FOR BASIC TRAFFIC 09/04/2018 Last Documented On 9 2:23PM ; [facility] Overweight Medical Established Patient with Karla Clark MINUTE CLERK FOR BASIC TRAFFIC 09/04/2018 Last Documented On 9 2:23PM ; [facility] Z68.29 - Body mass index (BM I) 29.0-29.9, adult Medical Established Patient with Karla Clark MINUTE CLERK FOR BASIC TRAFFIC 09/04/2018 Last Documented On 9 2:23PM ; [facility] Assess vaginal candidiasis Medical Estab lished Patient with Karla Clark MINUTE CLERK FOR BASIC TRAFFIC 07/31/2018 Last Documented On 9 2:12PM ; [facility] Work Phone: 1(109) 615-536312-20-2023 History general Narrative - Reported Includes: Medical History in patient's chart Description Last Updated No previous hospitalizations 05/22/2023 Last Documented On 3 1:30PM ; [facility] 1 previous live (s) 02/28/2023 Last Documented On 3 9:51AM ; [facility] Previously 1 time(s) 02/28/2023 Last Documented On 3 9:51AM ; [facility] Currently nursing 11/03/2021 Last Documented On 2 7:00PM ; [facility] status unknown for sexually tra nsmitted infection 11/03/2021 Last Documented On 2 7:00PM ; [facility] 11/03/2021 Last Documented On 2 7:00PM ; [facility] Not planning to have a baby in the next 12 months 11/03/2021 Last Documented On 2 7:00PM ; [facility] Heart Attack 03/2021 [facility] 1 07/09/2020 Last Documented On 1 10:59AM ; [facility] A recent immunization for flu 05/06/2020 Last Documented On 0 7:27PM ; [facility] Patient gave verbal consent for teleheal th 08/31/2019 Last Documented On 0 9:21AM ; [facility] History of abnormal electrocardiogram Last Documented On 9 2:12PM ; [facility] History of asthma 07/31/2018 Last Documented On 9 2:12PM ; [facility] History of cardiovascular disorder 07/31 Last Documented On 9 2:12PM ; [facility] History of respiratory disorder 07/31/19 19 Last Documented On 9 2:12PM ; [facility] History of bipolar disorder NOS 07/31/19 19 Last Documented On 9 2:12PM ; [facility] History of depression 07/31/2018 Last Documented On 9 2:12PM ; [facility] History of psychiatric disorders 019 Last Documented On 9 2:12PM ; [facility] Work Phone: 1(692) 325-190412-20-2023 History general Narrative - Reported Includes: Medical History in patient's chart Description Last Updated No previous hospitalizations 05/22/2023 Last Documented On 3 1:30PM ; [facility] 1 previous live (s) 02/28/2023 Last Documented On 3 9:51AM ; [facility] Previously 1 time(s) 02/28/2023 Last Documented On 3 9:51AM ; [facility] Currently nursing 11/03/2021 Last Documented On 2 7:00PM ; [facility] status unknown for sexually tra nsmitted infection 11/03/2021 Last Documented On 2 7:00PM ; [facility] 11/03/2021 Last Documented On 2 7:00PM ; [facility] Not planning to have a baby in the next 12 months 11/03/2021 Last Documented On 2 7:00PM ; [facility] Heart Attack 03/2021 [facility] 1 07/09/2020 Last Documented On 1 10:59AM ; [facility] A recent immunization for flu 05/06/2020 Last Documented On 0 7:27PM ; [facility] Patient gave verbal consent for teleheal th 08/31/2019 Last Documented On 0 9:21AM ; [facility] History of abnormal electrocardiogram Last Documented On 9 2:12PM ; [facility] History of asthma 07/31/2018 Last Documented On 9 2:12PM ; [facility] History of cardiovascular disorder 07/31 Last Documented On 9 2:12PM ; [facility] History of respiratory disorder 07/31/19 19 Last Documented On 9 2:12PM ; [facility] History of bipolar disorder NOS 07/31/19 19 Last Documented On 9 2:12PM ; [facility] History of depression 07/31/2018 Last Documented On 9 2:12PM ; [facility] History of psychiatric disorders 019 Last Documented On 9 2:12PM ; [facility] Work Phone: 1([phone]) 249-862612-20-2023 History general Narrative - Reported Includes: Medical History in patient's chart Description Last Updated No previous hospitalizations 05/22/2023 Last Documented On 3 1:30PM ; [facility] 1 previous live (s) 02/28/2023 Last Documented On 3 9:51AM ; [facility] Previously 1 time(s) 02/28/2023 Last Documented On 3 9:51AM ; [facility] Currently nursing 11/03/2021 Last Documented On 2 7:00PM ; [facility] status unknown for sexually tra nsmitted infection 11/03/2021 Last Documented On 2 7:00PM ; [facility] 11/03/2021 Last Documented On 2 7:00PM ; [facility] Not planning to have a baby in the next 12 months 11/03/2021 Last Documented On 2 7:00PM ; [facility] Heart Attack 03/2021 [facility] 1 07/09/2020 Last Documented On 1 10:59AM ; [facility] A recent immunization for flu 05/06/2020 Last Documented On 0 7:27PM ; [facility] Patient gave verbal consent for teleheal th 08/31/2019 Last Documented On 0 9:21AM ; [facility] History of abnormal electrocardiogram Last Documented On 9 2:12PM ; [facility] History of asthma 07/31/2018 Last Documented On 9 2:12PM ; [facility] History of cardiovascular disorder 07/31 Last Documented On 9 2:12PM ; [facility] History of respiratory disorder 07/31/19 19 Last Documented On 9 2:12PM ; [facility] History of bipolar disorder NOS 07/31/19 19 Last Documented On 9 2:12PM ; [facility] History of depression 07/31/2018 Last Documented On 9 2:12PM ; [facility] History of psychiatric disorders 019 Last Documented On 9 2:12PM ; [facility] Work Phone: 1(213) 671-748812-20-2023 History general Narrative - Reported Includes: Medical History in patient's chart Description Last Updated No previous hospitalizations 05/22/2023 Last Documented On 3 1:30PM ; [facility] 1 previous live (s) 02/28/2023 Last Documented On 3 9:51AM ; [facility] Previously 1 time(s) 02/28/2023 Last Documented On 3 9:51AM ; [facility] Currently nursing 11/03/2021 Last Documented On 2 7:00PM ; [facility] status unknown for sexually tra nsmitted infection 11/03/2021 Last Documented On 2 7:00PM ; [facility] 11/03/2021 Last Documented On 2 7:00PM ; [facility] Not planning to have a baby in the next 12 months 11/03/2021 Last Documented On 2 7:00PM ; [facility] Heart Attack 03/2021 [facility] 1 07/09/2020 Last Documented On 1 10:59AM ; [facility] A recent immunization for flu 05/06/2020 Last Documented On 0 7:27PM ; [facility] Patient gave verbal consent for teleheal th 08/31/2019 Last Documented On 0 9:21AM ; [facility] History of abnormal electrocardiogram Last Documented On 9 2:12PM ; [facility] History of asthma 07/31/2018 Last Documented On 9 2:12PM ; [facility] History of cardiovascular disorder 07/31 Last Documented On 9 2:12PM ; [facility] History of respiratory disorder 07/31/19 19 Last Documented On 9 2:12PM ; [facility] History of bipolar disorder NOS 07/31/19 19 Last Documented On 9 2:12PM ; [facility] History of depression 07/31/2018 Last Documented On 9 2:12PM ; [facility] History of psychiatric disorders 019 Last Documented On 9 2:12PM ; [facility] Work Phone: 1(272) 698-859612-20-2023 History general Narrative - Reported Includes: Medical History in patient's chart Description Last Updated No previous hospitalizations 05/22/2023 Last Documented On 3 1:30PM ; [facility] 1 previous live (s) 02/28/2023 Last Documented On 3 9:51AM ; [facility] Previously 1 time(s) 02/28/2023 Last Documented On 3 9:51AM ; [facility] Currently nursing 11/03/2021 Last Documented On 2 7:00PM ; [facility] status unknown for sexually tra nsmitted infection 11/03/2021 Last Documented On 2 7:00PM ; [facility] 11/03/2021 Last Documented On 2 7:00PM ; [facility] Not planning to have a baby in the next 12 months 11/03/2021 Last Documented On 2 7:00PM ; [facility] Heart Attack 03/2021 [facility] 1 07/09/2020 Last Documented On 1 10:59AM ; [facility] A recent immunization for flu 05/06/2020 Last Documented On 0 7:27PM ; [facility] Patient gave verbal consent for teleheal th 08/31/2019 Last Documented On 0 9:21AM ; [facility] History of abnormal electrocardiogram Last Documented On 9 2:12PM ; [facility] History of asthma 07/31/2018 Last Documented On 9 2:12PM ; [facility] History of cardiovascular disorder 07/31 Last Documented On 9 2:12PM ; [facility] History of respiratory disorder 07/31/19 19 Last Documented On 9 2:12PM ; [facility] History of bipolar disorder NOS 07/31/19 19 Last Documented On 9 2:12PM ; [facility] History of depression 07/31/2018 Last Documented On 9 2:12PM ; [facility] History of psychiatric disorders 019 Last Documented On 9 2:12PM ; [facility] Work Phone: 1(373) 712-865112-20-2023 History general Narrative - Reported Includes: Medical History in patient's chart Description Last Updated No previous hospitalizations 05/22/2023 Last Documented On 3 1:30PM ; [facility] 1 previous live (s) 02/28/2023 Last Documented On 3 9:51AM ; [facility] Previously 1 time(s) 02/28/2023 Last Documented On 3 9:51AM ; [facility] Currently nursing 11/03/2021 Last Documented On 2 7:00PM ; [facility] status unknown for sexually tra nsmitted infection 11/03/2021 Last Documented On 2 7:00PM ; [facility] 11/03/2021 Last Documented On 2 7:00PM ; [facility] Not planning to have a baby in the next 12 months 11/03/2021 Last Documented On 2 7:00PM ; [facility] Heart Attack 03/2021 [facility] 1 07/09/2020 Last Documented On 1 10:59AM ; [facility] A recent immunization for flu 05/06/2020 Last Documented On 0 7:27PM ; [facility] Patient gave verbal consent for teleheal th 08/31/2019 Last Documented On 0 9:21AM ; [facility] History of abnormal electrocardiogram Last Documented On 9 2:12PM ; [facility] History of asthma 07/31/2018 Last Documented On 9 2:12PM ; [facility] History of cardiovascular disorder 07/31 Last Documented On 9 2:12PM ; [facility] History of respiratory disorder 07/31/19 19 Last Documented On 9 2:12PM ; [facility] History of bipolar disorder NOS 07/31/19 19 Last Documented On 9 2:12PM ; [facility] History of depression 07/31/2018 Last Documented On 9 2:12PM ; [facility] History of psychiatric disorders 019 Last Documented On 9 2:12PM ; [facility] Work Phone: [phone]) 882-858212-20-2023 Progress note* Progress note Date Encounter Last Documented by 05/22/2023 Medical Established Patient Last documented on 05/22/2023; 1:30 PM, Karla Clark CNP; [facility] Active Problems & Conditions - J20.9 - [...] list reviewed Presents s/p pneumonia stay at [place] . she having neck mass removed at [facility] in june Current Medication - Acetaminophen ER [...] EVERY DAY, 30 days, 11 refills - [place] Carbonate 150 MG Oral Capsule Capsule, conventional [...] Bipolar disorder NOS Depression Heart Attack 03/2021 [facility]. Surgical: - General surgery right shoulder ORIF [...] BP-Sitting R138/89 mmHg BP Cuff SizeLarge Pulse Rate-Hghtffz57 bpm Sjpxxm15 in Xmtmjz649 lbs 9.6 oz Body Mass Index24.8 kg/m2 Body Surface Area1.7 m2 Oxygen Imonzqsinv84 % Vital Signs: - Systolic blood pressure [...] + 0 pt : Not at all. [facility]11-09-2023 NoteHNO ID: [id number] Author: Yandel Daniel MD Service: ? Author [...] details please see patient questionnaire scanned into [employer]. History: No past medical history on file. [...] refer to the patient questionnaire scanned into [employer]. Physical Exam: Vitals - There were no [...] will involve endocrinology for (more content not included)...[facility]10-26-2023 Discharge summary Author Joe rodriguez [facility] March 28, 2023 1:30pm Note Date/Time March 28, 2023 1 :30pm [facility] [address] [place] [address] Discharge Summary Signed Patient: Gail Almeida MR#: [id number] : 1955 Acct:[id number] Age/Sex: 67 / F Adm Date: 3 Loc: Room: [address] [place] [address]: Joe Davis MD Copies to: [...] disruptive behavior at her assisted living facility, [facility]. Patient was previously admitted earlierthis month due to a medication miscommunication regarding her Seroquel in which she stopped taking the medication and appeared to be in a manic episode. Cardiology reports indicate her QTc is not prolonged and Seroquel could be continued safely. She was scheduled to receive her Risperdal Consta 25 mg/2ml on03/05/23 but the MAR from [facility] did not indicate whether she received it.Her [...] Plan for next Risperdal Consta injection at correction facility 04/01/23 then continue Q2W. Physical exam: [...] Instructions: Important Contact Information You can call [facility] Inpatient Behavioral Health at [phone] any time day or night if you have emergent questions or question regarding discharge instructions. If at any time you are feeling an increase inyour psychiatric symptoms, call your physician or behavioral healthcare provider. If any time you have thoughts of harming yourself or others contact one of the following: Call 8 (available 24/12) Crisis Text Line (available 24/12) text 4HOPE to [phone] [facility] Hope Line (available 8 a.m. Midnight) call [phone] ([phone]) Next Risperidal Consta injection Due 04/02/23 Instructions: Schizoaffective Disorder (DC), [facility] [place] Instructions Prescriptions: New quetiapine [...] cap PO DAILY fluticasone propionate 50 mcg/actuation Nordman,Suspension 1 spray INTRANASAL BID Rx Instructions: inhale [...] PO Q12H PRN (Reason: Congestion) Follow Up: [facility] [Other] (Long Acting Injetion Risperdal Consta Due 04/02/23) [facility] [Outside] - 04/02/23 12:15 pm (Case Management: A trimming caser will call you tomorrow, 03/29/23 between 8:00am and 5:00pm. Psychiatrist: Saturday04/02/23 @ 12:15pm with Dr. Galicia) Karla Clark, RODNEY, CARDIO CLINICIAN-C [Referring] - Documented By: Joe Davis MD 3 [id number] Signed By: <Electronically signed by Joe Davis MD> 03/28/[address] [facility] Work Phone: 1(485) 117-358010-26-2023 Hospital Discharge instructions Additional Instructions Important Contact Information You can call [facility] at [phone] any time day or night if you have emergent questions or question regarding discharge instructions. If at any time you are feeling an increase in your psychiatric symptoms, call your physician or behavioral healthcare provider. If any time you have thoughts of harming yourself or others contact one of the following: Call 98-8 (available 24/12) Crisis Text Line (available 24/12) text 4HOPE to [phone] [facility] Hope Line (available 8 a.m. Midnight) call [phone] ([phone]) Next Risperidal Consta injection Due 04/02/23[facility] Work Phone: 1(974) 232-568710-25-2023 Progress note Author Joe rodriguez [facility] March 27, 2023 11:29am Note Date/Time March 27, 2023 1 1:29am [facility] [address] [place] [address] Psychiatry Progress Note Signed Patient: Gail Almeida MR#: [id number] : 1955 Acct:[id number] Age/Sex: 67 / F Adm Date: 3 Loc: Room: [address] [place] [address] Type : ADM INOo Attending Dr: Joe [...] <Electronically signed by Joe Davis MD> 03/27/23 1128 [facility] Work Phone: 1(850) 207-264010-25-2023 History and physical note Author Joe rodriguez [facility] March 27, 2023 9:05am Note Date/Time March 27, 2023 9 :05am [facility] [address] [place] [address] Psychiatry H&P Signed Patient: Gail Almeida MR#: [id number] : 1955 Acct:[id number] Age/Sex: 67 / F Adm Date: 3 Loc: 1S Room: [address] [place] [address] Type: ADM INOo Attending Dr: Joe Davis [...] homicidality and suicidality Insight: fair Judgment: fair [facility] Medical History (Updated 03/26/23 @ 18:06 by [...] oral powder 17 g PO DAILY PRN Mtgwiyizvprf58/10/23 [History Confirmed 03/26/23] quetiapine 400 mg tablet,extended [...] 03/26/23] dextromethorphan-guaifenesin 30 mg-600 mg tablet extended nfymmui47 hr (Mucus DM) 1 tab PO Q12H [...] disorder, unspecified Status: Acute Plan Admit to 1S and continue to monitor mental status. Continue home med regimen Hospitalist consult for managing co-morbid medical problems Verify last injection of Risperdal Consta and continue accordingly. Encourage group participation. Documented By: Joe Davis MD 3 [id number] Signed By: <Electronically signed by Joe Davis MD> 03/27/[address] [facility] Work Phone: 1(608) 771-958110-24-2023 Consult note Author Jose Huang [facility] March 26, 2023 9:29pm Note Date/Time March 26, 2023 5 :27pm [facility] [address] [place] [address] Hospitalist Consult Note Signed Patient: Gail Almeida MR#: [id number] : 1955 Acct:[id number] Age/Sex: 67 / F Adm Date: 3 Loc: Room: [address] [place] [address] Type: ADM IN Attending Dr: Joe Davis [...] mental health concerns. Transferred to [facility] for inpatient psychiatric admission. Hospitalist [...] negative unless noted below or in HPI [facility] Medical History (Updated 03/26/23 @ 18:06 by [...] oral powder 17 g PO DAILY PRN Zzxtnxwwbzyb31/10/23 [History Confirmed 03/26/23] quetiapine 400 mg tablet,extended [...] 03/26/23] dextromethorphan-guaifenesin 30 mg-600 mg tablet extended xyrnwex96 hr (Mucus DM) 1 tab PO Q12H [...] spray 03/26/23 09:00 03/26/23 08:22 Fluticasone Propionate Nordman 120 Nordman/16 Gm Bottle INTRANASAL 03/25/24 08:59 1 spray [...] 03/25/24 08:59 1 cap DAILY JOANNA Administration [place] Carbonate 150 mg 03/26/23 09:00 03/26/23 08:21 [place] Carbonate 300 Mg Tablet PO 03/25/24 08:59 150 mg BID JOANNA Administration Loratadine 10 mg 03/26/23 09:00 03/26/23 08:21 Loratadine 10 Mg Tablet PO 03/25/24 08:59 10 mg DAILY JOANNA Administration Magnesium Hydroxide 30 ml 03/26/23 01:03 Magnesium Hydroxide Susp 30 Ml Udc PO 03/25/24 01:02 Q6H PRN Constipation Meloxicam 15 mg 03/26/23 22:00 Meloxicam *Nf* 7.5 Mg Tablet PO 03/25/24 21:59 [facility] Olanzapine 5 mg 03/26/23 01:03 [...] Mg Tab.Er.24h PO 03/25/24 21:59 [facility] Sterile Water 2.1 ml 03/26/23 01:03 Water For Injection,Sterile 10 Ml Vial INJECTION 03/25/24 01:02 PRN PRN To dilute OLANZapine (ZyPREXA) Topiramate 25 mg 03/26/23 22:00 Topiramate 25 Mg Tablet PO 03/25/24 21:59 [facility] Exam Physical Exam Vital Signs: Temp Pulse [...] Results - last 72 hr 03/26/23 07:30: [place] 0.20 L 03/26/23 07:30: Triglycerides 86, Cholesterol [...] <Electronically signed by Jose Huang DO> 03/26/232128 [facility] Work Phone: [phone]) 669-498710-24-2023 Consult note Author Mariana Pryor [facility] March 26, 2023 5:27pm Note Date/Time March 26, 2023 3 :48pm [facility] [address] [place] [address] Hospitalist Consult Note Signed with Addenda Patient: Gail Almeida MR#: [id number] : 1955 Acct:[id number] Age/Sex: 67 / F Adm Date: 3 Loc: Room: [address] [place] [address] Type: ADM IN Attending Dr: Joe Davis MD Copies to: NON STAFF MD Mariana Vides APRN~ ADDENDUM1 disregard signed without completion Addendum Documented By: RODNEY Pryor 03/26/23 172 Addendum Signed By: <Electronically signed by RODNEY Pryor> 03/26/23 1726 HPI DATE OF CONSULTATION: 03/26/23 REQUESTING PROVIDER: Joe Davis [facility] Medical History (Updated 03/26/23 @ 01:23 by [...] inhalation (Advair Diskus) 1 inh inhalation BID 10/10/23 [History Confirmed 03/26/23] polyethylene glycol 3350 17 gram/dose oral powder 17 g PO DAILY PRN Tlviaqrmxvjd16/10/23 [History Confirmed 03/26/23] quetiapine 400 mg tablet,extended [...] 03/26/23] dextromethorphan-guaifenesin 30 mg-600 mg tablet extended mwvvbci93 hr (Mucus DM) 1 tab PO Q12H [...] spray 03/26/23 09:00 03/26/23 08:22 Fluticasone Propionate Nordman 120 Nordman/16 Gm Bottle INTRANASAL 03/25/24 08:59 1 spray [...] 03/25/24 08:59 1 cap DAILY JOANNA Administration [place] Carbonate 150 mg 03/26/23 09:00 03/26/23 08:21 [place] Carbonate 300 Mg Tablet PO 03/25/24 08:59 [...] Results - last 72 hr 03/26/23 07:30: [place] 0.20 L 03/26/23 07:30: Triglycerides 86, Cholesterol 165, LDL Cholesterol, Calc 95, VLDL Cholesterol 17, HDL Cholesterol 53, Cholesterol/HDL Ratio 3.1, 25-OH Vitamin D Total 34.5, Free T4 0.74, TSH 3rd Generation 0.42 L Documented By: Mariana Pryor APRN 03/04 09/23 1541 Signed By: <Electronically signed by RODNEY Pryor> 03/26/[address] [facility] Work Phone: [phone]) 810-289810-19-2023 Progress note* Progress note Date Encounter Last Documented by 03/21/2023 Chart Update Last documented on 03/21/2023; 11:27 AM, Karla Clark MINUTE CLERK FOR BASIC TRAFFIC; [facility] Active Problems & Conditions - J20.9 [...] arm pain, 5 days, 0 refills - [place] Carbonate 150 MG Oral Capsule one capsule [...] Bipolar disorder NOS Depression Heart Attack 03/2021 [facility]. Surgical: - General surgery right shoulder ORIF [...] EndCited Advance Directives - Advance Care Planning [facility]10-19-2023 Instructions Includes: Instructions for all patient encounters Instructions to patient Intervention and counseling on cessation of tobacco use, 3-10 minutes Discussed medication and nicotine replacement for tobacco cessation Last Documented On 3 8:54AM ; [facility] Intervention and counseling on cessation of tobacco use, 3-10 minutes Discussed medication and nicotine replacement for tobacco cessation Last Documented On 2 1:56PM ; [facility] Intervention and counseling on cessation of tobacco use, 3-10 minutes Last Documented On 0 2:07PM ; [facility] Return to the clinic if cond ition worsens or new symptoms arise Last Documented On 9 1:59PM ; [facility] Intervention and counseling on cessation of tobacco use, 3-10 minutes Last Documented On 9 10:39AM ; [facility] Education and Decision Aids were provided during visit for: Discussed nutritional needs teach healthy choices including fruits and vegetables Last Documented On 3 9:37AM ; [facility] Patient education about a pr oper diet Last Documented On 3 9:37AM ; [facility] Discussed concerns about exe rcise : promote physical activity Last Documented On 3 9:37AM ; [facility] Not requesting contraception Last Documented On 3 9:37AM ; [facility] Discussed nutritional needs teach healthy choices including fruits and vegetables Last Documented On 3 9:20AM ; [facility] Patient education about a pr oper diet Last Documented On 3 9:20AM ; [facility] Discussed concerns about exe rcise : promote physical activity Last Documented On 3 9:20AM ; [facility] Discussed nutritional needs teach healthy choices including fruits and vegetables Last Documented On 3 2:02PM ; [facility] Patient education about a pr oper diet Last Documented On 3 2:02PM ; [facility] Discussed concerns about exe rcise : promote physical activity Last Documented On 3 2:02PM ; [facility] Discussed nutritional needs teach healthy choices including fruits and vegetables Last Documented On 3 8:32AM ; [facility] Patient education about a pr oper diet Last Documented On 3 8:32AM ; [facility] Discussed concerns about exe rcise : promote physical activity Last Documented On 3 8:32AM ; [facility] Discussed nutritional needs teach healthy choices including fruits and vegetables Last Documented On 3 11:28AM ; [facility] Patient education about a pr oper diet Last Documented On 3 11:28AM ; [facility] Discussed concerns about exe rcise : promote physical activity Last Documented On 3 11:28AM ; [facility] Discussed nutritional needs teach healthy choices including fruits and vegetables Last Documented On 2 2:01PM ; [facility] Patient education about a pr oper diet Last Documented On 2 2:01PM ; [facility] Discussed concerns about exe rcise : promote physical activity Last Documented On 2 2:01PM ; [facility] Discussed nutritional needs teach healthy choices including fruits and vegetables Last Documented On 2 2:11PM ; [facility] Patient education about a pr oper diet Last Documented On 2 2:11PM ; [facility] Discussed concerns about exe rcise : promote physical activity Last Documented On 2 2:11PM ; [facility] Discussed current self-care methods/coping skills. ~Validated and normalized pt's feelings while assisting patient process recent events. ~Discussed ongoing counseling. ~Discussed lifestyle changes to address chronic illness. ~Supported patient's personal health goals ~wordfinds. walk, read, eat, enjoy my best friesnd Last Documented On 2 5:54PM ; [facility] Discussed nutritional needs teach healthy choices including fruits and vegetables Last Documented On 2 10:04AM ; [facility] Patient education about a pr oper diet Last Documented On 2 10:04AM ; [facility] Discussed concerns about exe rcise : promote physical activity Last Documented On 2 10:04AM ; [facility] Discussed nutritional needs teach healthy choices including fruits and vegetables Last Documented On 2 1:25PM ; [facility] Patient education about a pr oper diet Last Documented On 2 1:25PM ; [facility] Discussed concerns about exe rcise : promote physical activity Last Documented On 2 1:25PM ; [facility] Discussed nutritional needs teach healthy choices including fruits and vegetables Last Documented On 1 10:08AM ; [facility] Patient education about a pr oper diet Last Documented On 1 10:08AM ; [facility] Discussed concerns about exe rcise : promote physical activity Last Documented On 1 10:08AM ; [facility] Discussed nutritional needs teach healthy choices including fruits and vegetables Last Documented On 1 1:12PM ; [facility] Patient education about a pr oper diet Last Documented On 1 1:12PM ; [facility] Patient education about a pr oper diet Last Documented On 1 1:30PM ; [facility] Patient education about meal planning Last Documented On 1 1:30PM ; [facility] Education about changing eat ing habits Last Documented On 1 1:30PM ; [facility] Patient education about high fiber diet Last Documented On 1 1:30PM ; [facility] Patient education about low fat diet Last Documented On 1 1:30PM ; [facility] Patient education about low cholesterol diet Last Documented On 1 1:30PM ; [facility] Patient education about low carbohydrate diet Last Documented On 1 1:30PM ; [facility] Patient education about high protein diet Last Documented On 1 1:30PM ; [facility] Discussed concerns about exe rcise : promote physical activity Last Documented On 1 1:12PM ; [facility] Education/counseling conduct ed by pharmacist Last Documented On 0 1:39PM ; [facility] Vaccination counseling Last Documented On 0 1:39PM ; [facility] Discussed concerns about exe rcise : promote physical activity Last Documented On 0 2:16PM ; [facility] Patient goals decrease short ness of breath episodes Last Documented On 0 2:11PM ; [facility] Patient states that she uses her [...] recently Last Documented On 0 2:24PM ; [facility] Patient education about a pr oper diet Last Documented On 0 2:54PM ; [facility] Patient education about meal planning Last Documented On 0 2:54PM ; [facility] Education about changing eat ing habits Last Documented On 0 2:54PM ; [facility] Patient education about high fiber diet Last Documented On 0 2:54PM ; [facility] Patient education about low fat diet Last Documented On 0 2:54PM ; [facility] Patient education about low cholesterol diet Last Documented On 0 2:54PM ; [facility] Patient education about low carbohydrate diet Last Documented On 0 2:54PM ; [facility] Patient education about high protein diet Last Documented On 0 2:54PM ; [facility] Discussed nutritional needs teach healthy choices including fruits and vegetables Last Documented On 0 11:11AM ; [facility] Patient education about a pr oper diet Last Documented On 0 11:11AM ; [facility] Patient education about a pr oper diet Last Documented On 0 11:28AM ; [facility] Patient education about meal planning Last Documented On 0 11:28AM ; [facility] Education about changing eat ing habits Last Documented On 0 11:28AM ; [facility] Patient education about high fiber diet Last Documented On 0 11:28AM ; [facility] Patient education about low fat diet Last Documented On 0 11:28AM ; [facility] Patient education about low cholesterol diet Last Documented On 0 11:28AM ; [facility] Patient education about low carbohydrate diet Last Documented On 0 11:28AM ; [facility] Patient education about high protein diet Last Documented On 0 11:28AM ; [facility] Discussed concerns about exe rcise : promote physical activity Last Documented On 0 11:11AM ; [facility] Education/counseling conduct ed by pharmacist Last Documented On 0 1:41PM ; [facility] Patient states that she lonnie gonzalez [...] own Last Documented On 0 2:08PM ; [facility] Education/counseling conduct ed by pharmacist Last Documented On 9 1:12PM ; [facility] Patient states that she lonnie gonzalez has issues with her inhaler with the spacer. Patient did not bring in inhaler or spacer. Patient was told to bring in inhalers at next scheduled visit for pharmacist to assess inhalation technique. Patient is agreeable Last Documented On 9 1:13PM ; [facility] Patient goals Start using ch deon to help with inhaling dulera Last Documented On 9 2:40PM ; [facility] Patient states that she is g [...] vaccines Last Documented On 9 2:51PM ; [facility] Discussed nutritional needs teach healthy choices including fruits and vegetables Last Documented On 9 9:29AM ; [facility] Patient education about a pr oper diet Last Documented On 9 9:29AM ; [facility] Discussed concerns about exe rcise : promote physical activity Last Documented On 9 9:29AM ; [facility] Work Phone: 1(677) 651-448510-13-2023 Hospital Discharge instructions Additional Instructions Important Contact Information You can call [facility] at [phone] any time day or night if you have emergent questions or question regarding discharge instructions. If at any time you are feeling an increase in your psychiatric symptoms, call your physician or behavioral healthcare provider. If any time you have thoughts of harming yourself or others contact one of the following: Call 8-88 (available 24/12) Crisis Text Line (available 24/12) text 4HOPE to [phone] [facility] Hope Line (available 8 a.m. Midnight) call [phone] ([phone]) Regular Diet No Activity Restrictions Risperdal Consta Long Acting Injection Due 03/21/23[facility] Work Phone: 1(371) 492-914910-12-2023 Consult note Author Maddy Moss [facility] March 14, 2023 3:16pm Note Date/Time March 14, 2023 3 :14pm [facility] [address] [place] [address] Cardiology Consult Note Signed Patient: Gail Almeida MR#: [id number] : 1955 Acct:[id number] Age/Sex: 67 / F Adm Date: 3 Loc: Room: 8X7151-1 Type: ADM IN Attending Dr: Joe Davis [...] negative unless noted below or in HPI [facility] Medical History (Updated 03/14/23 @ 15:12 by [...] mcg-salmeterol 50 mcg/dose blistr powdr for inhalation (Antoniaxela Inhub) 1 inh inhalation BID 03/12/23 [History Confirmed 03/12/23] polyethylene glycol 3350 17 gram/dose oral powder 17 g PO DAILY PRN Gxdeewvgvrwr00/10/23 [History Confirmed 03/12/23] Exam Physical Exam Vital [...] x10E3/uL Lymph # (Auto) 1.9 (1.00-4.8) x10E3/uL [place] # (Auto) 0.6 (0.0-0.8) x10E3/uL Eos # [...] <Electronically signed by Maddy Moss MD> 03/14/23 [facility]6 [facility] Work Phone: 1(219) 342-913610-12-2023 Progress note Author Joe rodriguez [facility] March 14, 2023 6:33am Note Date/Time March 14, 2023 6 :33am [facility] [address] [place] [address] Psychiatry Progress Note Signed Patient: Gail Almeida MR#: [id number] : 1955 Acct:[id number] Age/Sex: 67 / F Adm Date: 3 Loc: Room: [address] [place] [address] Type : ADM IN Attending Dr: Joe [...] signed by Joe Davis MD> 03/14/[address] [facility] Work Phone: 1(963) 102-663310-11-2023 Progress note Author Joe rodriguez [facility] March 13, 2023 1:14pm Note Date/Time March 13, 2023 7 :06am [facility] [address] [place] [address] Psychiatry Progress Note Signed Patient: Gail Almeida MR#: [id number] : 1955 Acct:[id number] Age/Sex: 67 / F Adm Date: 3 Loc: 1S Room: 4Y4018-5 Type : ADM IN Attending Dr: Joe [...] <Electronically signed by Joe Davis MD> 03/13/23 1310 [facility] Work Phone: [phone]) 176-365510-10-2023 History and physical note Author Joe rodriguez [facility] March 12, 2023 11:25am Note Date/Time March 12, 2023 1 0:29am [facility] [address] [place] [address] Psychiatry H&P Signed Patient: Gail Almeida MR#: [id number] : 1955 Acct:[id number] Age/Sex: 67 / F Adm Date: 3 Loc: Room: [address] [place] [address] Type: ADM IN Attending Dr: Joe Davis [...] signs of shelby. She was sent to [facility] for medical clearance and then brought to [facility]. The patient stated that her friend [...] Past hospitalizations: Hospitalized 8 years ago at [facility] Past suicide attempts: Denies Family psych history: Mother with bipolar disorder. Daughter with bipolar disorder. Previous medications: Seroquel, Risperdal IM, amantadine, Cogentin, lithium Alcohol and drug use: Denies alcohol or illicit drug use. Reports smoking 3 to 4 cigarettes/day. Living: Alone at [facility] Employment: Unemployed. Plans to retire next year. [...] equal bilaterally. CN XII: Tongue protrusion midline [facility] Medical History (Updated 03/12/23 @ 11:22 by [...] mcg-salmeterol 50 mcg/dose blistr powdr for inhalation (Antoniaxela Inhub) 1 inh inhalation BID 03/12/23 [History Confirmed 03/12/23] polyethylene glycol 3350 17 gram/dose oral powder 17 g PO DAILY PRN Pmkubovthnuz44/10/23 [History Confirmed 03/12/23] Exam Physical Exam Vital [...] signed by Joe Davis MD> 03/12/[address] [facility] Work Phone: 1(207) 145-990509-28-2023 History general Narrative - Reported Includes: Medical History in patient's chart Description Last Updated 1 previous live (s) 02/28/2023 Last Documented On 3 9:51AM ; [facility] Previously 1 time(s) 02/28/2023 Last Documented On 3 9:51AM ; [facility] Previous hospitalizations 09/18/2022 Last Documented On 3 2:33PM ; [facility] Currently nursing 11/03/2021 Last Documented On 2 7:00PM ; [facility] status unknown for sexually tra nsmitted infection 11/03/2021 Last Documented On 2 7:00PM ; [facility] 11/03/2021 Last Documented On 2 7:00PM ; [facility] Not planning to have a baby in the next 12 months 11/03/2021 Last Documented On 2 7:00PM ; [facility] Heart Attack 03/2021 [facility] 1 07/09/2020 Last Documented On 1 10:59AM ; [facility] A recent immunization for flu 05/06/2020 Last Documented On 0 7:27PM ; [facility] Patient gave verbal consent for teleheal th 08/31/2019 Last Documented On 0 9:21AM ; [facility] History of abnormal electrocardiogram Last Documented On 9 2:12PM ; [facility] History of asthma 07/31/2018 Last Documented On 9 2:12PM ; [facility] History of cardiovascular disorder 07/31 Last Documented On 9 2:12PM ; [facility] History of respiratory disorder 07/31/19 19 Last Documented On 9 2:12PM ; [facility] History of bipolar disorder NOS 07/31/19 19 Last Documented On 9 2:12PM ; [facility] History of depression 07/31/2018 Last Documented On 9 2:12PM ; [facility] History of psychiatric disorders 019 Last Documented On 9 2:12PM ; [facility] Work Phone: 1(901) 764-575609-28-2023 Progress note* Progress note Date Encounter Last Documented by 02/28/2023 Medical Established Patient Last documented on 02/28/2023; 9:51 AM, Aaron Whitaker CNP; [facility] Active Problems & Conditions - J20.9 [...] prior encounters. History of Present Illness Gail Mirtes is a 67 year old female. - [...] arm pain, 5 days, 0 refills - [place] Carbonate 150 MG Oral Capsule one capsule [...] Bipolar disorder NOS Depression Heart Attack 03/2021 [facility]. Surgical: - General surgery right shoulder ORIF [...] BP-Sitting L111/76 mmHg BP Cuff SizeRegular Pulse Rate-Trketvs74 bpm Sgfwee43 in Qztoyj415 lbs 12.8 oz Body Mass Index24 kg/m2 Body Surface Area1.7 m2 Oxygen Dnjexiqgmj00 % Vital Signs: - Systolic blood pressure [...] breast Outside Diagn Tests/Imaging: Mammogram - Screening ([id number]) EndCited StartCited- Other Topiramate 25 MG tablet [...] + 0 pt : Not at all. [facility]07-12-2023 Evaluation note* Encounter Date Diagnosis Assessment [...] Other specified postprocedural states (ICD-10 - Z98.890) [facility] Other 06-19-2023 Progress note* Progress note Date Encounter Last Documented by 11/19/2022 Medical Established Patient Last documented on 11/19/2022; 10:15 AM, Karla Clark CNP; [facility] Active Problems & Conditions - J20.9 - [...] EVERY DAY, 30 days, 11 refills - [place] Carbonate 300MG Oral Tablet 300 MG take [...] Bipolar disorder NOS Depression Heart Attack 03/2021 [facility]. Surgical: - General surgery right shoulder ORIF [...] BP-Sitting L133/60 mmHg BP Cuff SizeRegular Pulse Rate-Ipjcwuf08 bpm Temp-Uzbrdhvk14.6 F Roajkr21 in Bkfpbs009 lbs 6.4 oz Body Mass Index23.6 kg/m2 Body Surface Area1.7 m2 Oxygen Jywznrsaqe83 % General Appearance: - Awake. - Alert. [...] + 0 pt : Not at all. [facility]06-19-2023 Instructions Includes: Instructions for all patient encounters Instructions to patient Intervention and counseling on cessation of tobacco use, 3-10 minutes Discussed medication and nicotine replacement for tobacco cessation Last Documented On 3 8:54AM ; [facility] Intervention and counseling on cessation of tobacco use, 3-10 minutes Discussed medication and nicotine replacement for tobacco cessation Last Documented On 2 1:56PM ; [facility] Intervention and counseling on cessation of tobacco use, 3-10 minutes Last Documented On 0 2:07PM ; [facility] Return to the clinic if cond ition worsens or new symptoms arise Last Documented On 9 1:59PM ; [facility] Intervention and counseling on cessation of tobacco use, 3-10 minutes Last Documented On 9 10:39AM ; [facility] Education and Decision Aids were provided during visit for: Discussed nutritional needs teach healthy choices including fruits and vegetables Last Documented On 3 9:20AM ; [facility] Patient education about a pr oper diet Last Documented On 3 9:20AM ; [facility] Discussed concerns about exe rcise : promote physical activity Last Documented On 3 9:20AM ; [facility] Discussed nutritional needs teach healthy choices including fruits and vegetables Last Documented On 3 2:02PM ; [facility] Patient education about a pr oper diet Last Documented On 3 2:02PM ; [facility] Discussed concerns about exe rcise : promote physical activity Last Documented On 3 2:02PM ; [facility] Discussed nutritional needs teach healthy choices including fruits and vegetables Last Documented On 3 8:32AM ; [facility] Patient education about a pr oper diet Last Documented On 3 8:32AM ; [facility] Discussed concerns about exe rcise : promote physical activity Last Documented On 3 8:32AM ; [facility] Discussed nutritional needs teach healthy choices including fruits and vegetables Last Documented On 3 11:28AM ; [facility] Patient education about a pr oper diet Last Documented On 3 11:28AM ; [facility] Discussed concerns about exe rcise : promote physical activity Last Documented On 3 11:28AM ; [facility] Discussed nutritional needs teach healthy choices including fruits and vegetables Last Documented On 2 2:01PM ; [facility] Patient education about a pr oper diet Last Documented On 2 2:01PM ; [facility] Discussed concerns about exe rcise : promote physical activity Last Documented On 2 2:01PM ; [facility] Discussed nutritional needs teach healthy choices including fruits and vegetables Last Documented On 2 2:11PM ; [facility] Patient education about a pr oper diet Last Documented On 2 2:11PM ; [facility] Discussed concerns about exe rcise : promote physical activity Last Documented On 2 2:11PM ; [facility] Discussed current self-care methods/coping skills. ~Validated and normalized pt's feelings while assisting patient process recent events. ~Discussed ongoing counseling. ~Discussed lifestyle changes to address chronic illness. ~Supported patient's personal health goals ~wordfinds. walk, read, eat, enjoy my best friesnd Last Documented On 2 5:54PM ; [facility] Discussed nutritional needs teach healthy choices including fruits and vegetables Last Documented On 2 10:04AM ; [facility] Patient education about a pr oper diet Last Documented On 2 10:04AM ; [facility] Discussed concerns about exe rcise : promote physical activity Last Documented On 2 10:04AM ; [facility] Discussed nutritional needs teach healthy choices including fruits and vegetables Last Documented On 2 1:25PM ; [facility] Patient education about a pr oper diet Last Documented On 2 1:25PM ; [facility] Discussed concerns about exe rcise : promote physical activity Last Documented On 2 1:25PM ; [facility] Discussed nutritional needs teach healthy choices including fruits and vegetables Last Documented On 1 10:08AM ; [facility] Patient education about a pr oper diet Last Documented On 1 10:08AM ; [facility] Discussed concerns about exe rcise : promote physical activity Last Documented On 1 10:08AM ; [facility] Discussed nutritional needs teach healthy choices including fruits and vegetables Last Documented On 1 1:12PM ; [facility] Patient education about a pr oper diet Last Documented On 1 1:12PM ; [facility] Patient education about a pr oper diet Last Documented On 1 1:30PM ; [facility] Patient education about meal planning Last Documented On 1 1:30PM ; [facility] Education about changing eat ing habits Last Documented On 1 1:30PM ; [facility] Patient education about high fiber diet Last Documented On 1 1:30PM ; [facility] Patient education about low fat diet Last Documented On 1 1:30PM ; [facility] Patient education about low cholesterol diet Last Documented On 1 1:30PM ; [facility] Patient education about low carbohydrate diet Last Documented On 1 1:30PM ; [facility] Patient education about high protein diet Last Documented On 1 1:30PM ; [facility] Discussed concerns about exe rcise : promote physical activity Last Documented On 1 1:12PM ; [facility] Education/counseling conduct ed by pharmacist Last Documented On 0 1:39PM ; [facility] Vaccination counseling Last Documented On 0 1:39PM ; [facility] Discussed concerns about exe rcise : promote physical activity Last Documented On 0 2:16PM ; [facility] Patient goals decrease short ness of breath episodes Last Documented On 0 2:11PM ; [facility] Patient states that she uses her [...] recently Last Documented On 0 2:24PM ; [facility] Patient education about a pr oper diet Last Documented On 0 2:54PM ; [facility] Patient education about meal planning Last Documented On 0 2:54PM ; [facility] Education about changing eat ing habits Last Documented On 0 2:54PM ; [facility] Patient education about high fiber diet Last Documented On 0 2:54PM ; [facility] Patient education about low fat diet Last Documented On 0 2:54PM ; [facility] Patient education about low cholesterol diet Last Documented On 0 2:54PM ; [facility] Patient education about low carbohydrate diet Last Documented On 0 2:54PM ; [facility] Patient education about high protein diet Last Documented On 0 2:54PM ; [facility] Discussed nutritional needs teach healthy choices including fruits and vegetables Last Documented On 0 11:11AM ; [facility] Patient education about a pr oper diet Last Documented On 0 11:11AM ; [facility] Patient education about a pr oper diet Last Documented On 0 11:28AM ; [facility] Patient education about meal planning Last Documented On 0 11:28AM ; [facility] Education about changing eat ing habits Last Documented On 0 11:28AM ; [facility] Patient education about high fiber diet Last Documented On 0 11:28AM ; [facility] Patient education about low fat diet Last Documented On 0 11:28AM ; [facility] Patient education about low cholesterol diet Last Documented On 0 11:28AM ; [facility] Patient education about low carbohydrate diet Last Documented On 0 11:28AM ; [facility] Patient education about high protein diet Last Documented On 0 11:28AM ; [facility] Discussed concerns about exe rcise : promote physical activity Last Documented On 0 11:11AM ; [facility] Education/counseling conduct ed by pharmacist Last Documented On 0 1:41PM ; [facility] Patient states that she lonnie gonzalez [...] own Last Documented On 0 2:08PM ; [facility] Education/counseling conduct ed by pharmacist Last Documented On 9 1:12PM ; [facility] Patient states that she lonnie gonzalez has issues with her inhaler with the spacer. Patient did not bring in inhaler or spacer. Patient was told to bring in inhalers at next scheduled visit for pharmacist to assess inhalation technique. Patient is agreeable Last Documented On 9 1:13PM ; [facility] Patient goals Start using ch deon to help with inhaling dulera Last Documented On 9 2:40PM ; [facility] Patient states that she is g [...] vaccines Last Documented On 9 2:51PM ; [facility] Discussed nutritional needs teach healthy choices including fruits and vegetables Last Documented On 9 9:29AM ; [facility] Patient education about a pr oper diet Last Documented On 9 9:29AM ; [facility] Discussed concerns about exe rcise : promote physical activity Last Documented On 9 9:29AM ; [facility] Work Phone: 1(116) 594-783705-31-2023 Evaluation note* Encounter Date Diagnosis Assessment Notes [...] Other specified postprocedural states (ICD-10 - Z98.890) [facility] Other 05-05-2023 Evaluation note* Encounter Date Diagnosis Assessment Notes Treatment Notes Treatment Clinical Notes October, Other closed displaced fracture of proximal end of right humerus with routine healing, subsequent encounter (ICD-10 - S42.291D) [facility] Other 05-03-2023 Evaluation note* Encounter Date Diagnosis [...] as documented in the electronic medical record. [facility] Other 04-21-2023 Progress note* Progress note Date Encounter Last Documented by 09/21/2022 Chart Update Last documented on 09/21/2022; 4:58 PM, Karla Clark CNP; [facility] Active Problems & Conditions - J45.909 [...] Oral Tablet 5 days, 0 refills - [place] Carbonate 300MG Oral Tablet 300 MG take [...] Bipolar disorder NOS Depression Heart Attack 03/2021 [facility]. Surgical: - General surgery right shoulder ORIF [...] Vaccine Advance Directives - Advance Care Planning [facility]04-18-2023 History general Narrative - Reported Includes: Medical History in patient's chart Description Last Updated Previous hospitalizations 09/18/2022 Last Documented On 3 2:33PM ; [facility] Currently nursing 11/03/2021 Last Documented On 2 7:00PM ; [facility] status unknown for sexually tra nsmitted infection 11/03/2021 Last Documented On 2 7:00PM ; [facility] 11/03/2021 Last Documented On 2 7:00PM ; [facility] Not planning to have a baby in the next 12 months 11/03/2021 Last Documented On 2 7:00PM ; [facility] Heart Attack 03/2021 [facility] 1 07/09/2020 Last Documented On 1 10:59AM ; [facility] A recent immunization for flu 05/06/2020 Last Documented On 0 7:27PM ; [facility] Patient gave verbal consent for teleheal th 08/31/2019 Last Documented On 0 9:21AM ; [facility] History of abnormal electrocardiogram Last Documented On 9 2:12PM ; [facility] History of asthma 07/31/2018 Last Documented On 9 2:12PM ; [facility] History of cardiovascular disorder 07/31 Last Documented On 9 2:12PM ; [facility] History of respiratory disorder 07/31/19 19 Last Documented On 9 2:12PM ; [facility] History of bipolar disorder NOS 07/31/19 19 Last Documented On 9 2:12PM ; [facility] History of depression 07/31/2018 Last Documented On 9 2:12PM ; [facility] History of psychiatric disorders 019 Last Documented On 9 2:12PM ; [facility] Work Phone: 1(954) 182-875404-18-2023 Progress note* Progress note Date Encounter Last Documented by 09/18/2022 Medical Established Patient Last documented on 09/18/2022; 2:33 PM, Karla Clark CNP; [facility] Active Problems & Conditions - J45.909 [...] surgery on rotator cuff at [facility]. Referred Here Referred by emergency [...] Oral Tablet 5 days, 0 refills - [place] Carbonate 300MG Oral Tablet 300 MG take [...] Bipolar disorder NOS Depression Heart Attack 03/2021 [facility]. Surgical: - Hysterectomy Social History Environmental Exposure: [...] BP-Sitting L142/74 mmHg BP Cuff SizeRegular Pulse Rate-Eleofyx71 bpm Temp-Sbydjxkz71.6 F Eedfdm72 in Mppilv504 lbs 12.8 oz Body Mass Index24.9 kg/m2 Body Surface Area1.7 m2 Oxygen Nqjmoiobvo17 % General Appearance: - Awake. - Alert. [...] Tobacco Cessation Intervention and Counseling satisfied 09/18/2022. [facility]04-10-2023 Evaluation note* Encounter Date Diagnosis Assessment Notes [...] - S42.291A) Gail is here today for [facility] follow-up of right shoulder fracture dislocation. Prior medical notes from [facility] have been reviewed today. Images have [...] poor healing. I have advised against the shelter use of narcotic pain medication. I have advised to follow all post-operative instructions in order to obtain the best outcome. Informed consent has been verbally affirmed and signed as indicated. Plan for ORIF of right greater tuberosity. Beachchair positioning. Possible proximal humerus plate. Sep, Other See orders for this visit as documented in the electronic medical record. [facility] Other 04-06-2023 NoteEXAM: XR SHOULDER RT 1 V HISTORY: Pain ; post reduction evaluation COMPARISON: Right shoulder x-rays from same date TECHNIQUE: FINDINGS: The humeral head remains inferior to the glenoid. Stable displaced fracture of the greater tuberosity. IMPRESSION: 1. 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 Electronically authenticated by: HÉCTOR HO Date: 2022-09-06 14:58[facility]04-06-2023 NotePROCEDURE: XR HUMERUS RT MIN 2 [...] Electronically authenticated by: HÉCTOR HO Date: 2022-09-06 11:48[facility]04-06-2023 NotePROCEDURE: XR HUMERUS RT MIN 2 [...] Electronically authenticated by: HÉCTOR HO Date: 2022-09-06 11:48[facility]03-27-2023 Progress note* Progress note Date Encounter Last Documented by 08/27/2022 Chart Update Last documented on 08/27/2022; 8:57 AM, Carolin ATWOOD; [facility] Active Problems & Conditions - J45.909 - [...] EVERY DAY, 30 days, 11 refills - [place] Carbonate 300MG Oral Tablet 300 MG take [...] total score: 0 pts (Scale: 0-6) PHQ2. [facility]03-27-2023 Progress note* Progress note Date Encounter Last Documented by 08/27/2022 Medical Established Patient Last documented on 08/27/2022; 9:20 AM, Karla Clark CNP; [facility] Active Problems & Conditions - J45.909 [...] EVERY DAY, 30 days, 11 refills - [place] Carbonate 300MG Oral Tablet 300 MG take [...] Bipolar disorder NOS Depression Heart Attack 03/2021 [facility] [place]. Surgical: - Hysterectomy Social History Environmental Exposure: [...] BP-Sitting L115/73 mmHg BP Cuff SizeRegular Pulse Rate-Gzwxnjr67 bpm Temp-Yislkdrx46 F Iwokuv03 in Wjvjzd967 lbs 9.6 oz Body Mass Index24.6 kg/m2 Body Surface Area1.7 m2 Oxygen Zcsvtnqqxt01 % General Appearance: - Appears distressed. - [...] Cessation Intervention and Counseling satisfied 08/27/2022. [facility]03-27-2023 Instructions Includes: Instructions for all patient encounters Instructions to patient Intervention and counseling on cessation of tobacco use, 3-10 minutes Discussed medication and nicotine replacement for tobacco cessation Last Documented On 8:54AM ; [facility] Intervention and counseling on cessation of tobacco use, 3-10 minutes Discussed medication and nicotine replacement for tobacco cessation Last Documented On 2 1:56PM ; [facility] Intervention and counseling on cessation of tobacco use, 3-10 minutes Last Documented On 0 2:07PM ; [facility] Return to the clinic if cond ition worsens or new symptoms arise Last Documented On 9 1:59PM ; [facility] Intervention and counseling on cessation of tobacco use, 3-10 minutes Last Documented On 9 10:39AM ; [facility] Education and Decision Aids were provided during visit for: Discussed nutritional needs teach healthy choices including fruits and vegetables Last Documented On 3 9:37AM ; [facility] Patient education about a pr oper diet Last Documented On 3 9:37AM ; [facility] Discussed concerns about exe rcise : promote physical activity Last Documented On 3 9:37AM ; [facility] Not requesting contraception Last Documented On 3 9:37AM ; [facility] Discussed nutritional needs teach healthy choices including fruits and vegetables Last Documented On 3 9:20AM ; [facility] Patient education about a pr oper diet Last Documented On 3 9:20AM ; [facility] Discussed concerns about exe rcise : promote physical activity Last Documented On 3 9:20AM ; [facility] Discussed nutritional needs teach healthy choices including fruits and vegetables Last Documented On 3 2:02PM ; [facility] Patient education about a pr oper diet Last Documented On 3 2:02PM ; [facility] Discussed concerns about exe rcise : promote physical activity Last Documented On 3 2:02PM ; [facility] Discussed nutritional needs teach healthy choices including fruits and vegetables Last Documented On 3 8:32AM ; [facility] Patient education about a pr oper diet Last Documented On 3 8:32AM ; [facility] Discussed concerns about exe rcise : promote physical activity Last Documented On 3 8:32AM ; [facility] Discussed nutritional needs teach healthy choices including fruits and vegetables Last Documented On 3 11:28AM ; [facility] Patient education about a pr oper diet Last Documented On 3 11:28AM ; [facility] Discussed concerns about exe rcise : promote physical activity Last Documented On 3 11:28AM ; [facility] Discussed nutritional needs teach healthy choices including fruits and vegetables Last Documented On 2 2:01PM ; [facility] Patient education about a pr oper diet Last Documented On 2 2:01PM ; [facility] Discussed concerns about exe rcise : promote physical activity Last Documented On 2 2:01PM ; [facility] Discussed nutritional needs teach healthy choices including fruits and vegetables Last Documented On 2 2:11PM ; [facility] Patient education about a pr oper diet Last Documented On 2 2:11PM ; [facility] Discussed concerns about exe rcise : promote physical activity Last Documented On 2 2:11PM ; [facility] Discussed current self-care methods/coping skills. ~Validated and normalized pt's feelings while assisting patient process recent events. ~Discussed ongoing counseling. ~Discussed lifestyle changes to address chronic illness. ~Supported patient's personal health goals ~wordfinds. walk, read, eat, enjoy my best friesnd Last Documented On 2 5:54PM ; [facility] Discussed nutritional needs teach healthy choices including fruits and vegetables Last Documented On 2 10:04AM ; [facility] Patient education about a pr oper diet Last Documented On 2 10:04AM ; [facility] Discussed concerns about exe rcise : promote physical activity Last Documented On 2 10:04AM ; [facility] Discussed nutritional needs teach healthy choices including fruits and vegetables Last Documented On 2 1:25PM ; [facility] Patient education about a pr oper diet Last Documented On 2 1:25PM ; [facility] Discussed concerns about exe rcise : promote physical activity Last Documented On 2 1:25PM ; [facility] Discussed nutritional needs teach healthy choices including fruits and vegetables Last Documented On 1 10:08AM ; [facility] Patient education about a pr oper diet Last Documented On 1 10:08AM ; [facility] Discussed concerns about exe rcise : promote physical activity Last Documented On 1 10:08AM ; [facility] Discussed nutritional needs teach healthy choices including fruits and vegetables Last Documented On 1 1:12PM ; [facility] Patient education about a pr oper diet Last Documented On 1 1:12PM ; [facility] Patient education about a pr oper diet Last Documented On 1 1:30PM ; [facility] Patient education about meal planning Last Documented On 1 1:30PM ; [facility] Education about changing eat ing habits Last Documented On 1 1:30PM ; [facility] Patient education about high fiber diet Last Documented On 1 1:30PM ; [facility] Patient education about low fat diet Last Documented On 1 1:30PM ; [facility] Patient education about low cholesterol diet Last Documented On 1 1:30PM ; [facility] Patient education about low carbohydrate diet Last Documented On 1 1:30PM ; [facility] Patient education about high protein diet Last Documented On 1 1:30PM ; [facility] Discussed concerns about exe rcise : promote physical activity Last Documented On 1 1:12PM ; [facility] Education/counseling conduct ed by pharmacist Last Documented On 0 1:39PM ; [facility] Vaccination counseling Last Documented On 0 1:39PM ; [facility] Discussed concerns about exe rcise : promote physical activity Last Documented On 0 2:16PM ; [facility] Patient goals decrease short ness of breath episodes Last Documented On 0 2:11PM ; [facility] Patient states that she uses her [...] recently Last Documented On 0 2:24PM ; [facility] Patient education about a pr oper diet Last Documented On 0 2:54PM ; [facility] Patient education about meal planning Last Documented On 0 2:54PM ; [facility] Education about changing eat ing habits Last Documented On 0 2:54PM ; [facility] Patient education about high fiber diet Last Documented On 0 2:54PM ; [facility] Patient education about low fat diet Last Documented On 0 2:54PM ; [facility] Patient education about low cholesterol diet Last Documented On 0 2:54PM ; [facility] Patient education about low carbohydrate diet Last Documented On 0 2:54PM ; [facility] Patient education about high protein diet Last Documented On 0 2:54PM ; [facility] Discussed nutritional needs teach healthy choices including fruits and vegetables Last Documented On 0 11:11AM ; [facility] Patient education about a pr oper diet Last Documented On 0 11:11AM ; [facility] Patient education about a pr oper diet Last Documented On 0 11:28AM ; [facility] Patient education about meal planning Last Documented On 0 11:28AM ; [facility] Education about changing eat ing habits Last Documented On 0 11:28AM ; [facility] Patient education about high fiber diet Last Documented On 0 11:28AM ; [facility] Patient education about low fat diet Last Documented On 0 11:28AM ; [facility] Patient education about low cholesterol diet Last Documented On 0 11:28AM ; [facility] Patient education about low carbohydrate diet Last Documented On 0 11:28AM ; [facility] Patient education about high protein diet Last Documented On 0 11:28AM ; [facility] Discussed concerns about exe rcise : promote physical activity Last Documented On 0 11:11AM ; [facility] Education/counseling conduct ed by pharmacist Last Documented On 0 1:41PM ; [facility] Patient states that she lonnie gonzalez [...] own Last Documented On 0 2:08PM ; [facility] Education/counseling conduct ed by pharmacist Last Documented On 9 1:12PM ; [facility] Patient states that she lonnie gonzalez has issues with her inhaler with the spacer. Patient did not bring in inhaler or spacer. Patient was told to bring in inhalers at next scheduled visit for pharmacist to assess inhalation technique. Patient is agreeable Last Documented On 9 1:13PM ; [facility] Patient goals Start using ch deon to help with inhaling dulera Last Documented On 9 2:40PM ; [facility] Patient states that she is g [...] vaccines Last Documented On 9 2:51PM ; [facility] Discussed nutritional needs teach healthy choices including fruits and vegetables Last Documented On 9 9:29AM ; [facility] Patient education about a pr oper diet Last Documented On 9 9:29AM ; [facility] Discussed concerns about exe rcise : promote physical activity Last Documented On 9 9:29AM ; [facility] Work Phone: 1(672) [phone] Instructions Includes: Instructions for all patient encounters Instructions to patient Intervention and counseling on cessation of tobacco use, 3-10 minutes Discussed medication and nicotine replacement for tobacco cessation Last Documented On 3 8:54AM ; [facility] Intervention and counseling on cessation of tobacco use, 3-10 minutes Discussed medication and nicotine replacement for tobacco cessation Last Documented On 2 1:56PM ; [facility] Intervention and counseling on cessation of tobacco use, 3-10 minutes Last Documented On 0 2:07PM ; [facility] Return to the clinic if cond ition worsens or new symptoms arise Last Documented On 9 1:59PM ; [facility] Intervention and counseling on cessation of tobacco use, 3-10 minutes Last Documented On 9 10:39AM ; [facility] Education and Decision Aids were provided during visit for: Discussed nutritional needs teach healthy choices including fruits and vegetables Last Documented On 3 8:32AM ; [facility] Patient education about a pr oper diet Last Documented On 3 8:32AM ; [facility] Discussed concerns about exe rcise : promote physical activity Last Documented On 3 8:32AM ; [facility] Discussed nutritional needs teach healthy choices including fruits and vegetables Last Documented On 3 11:28AM ; [facility] Patient education about a pr oper diet Last Documented On 3 11:28AM ; [facility] Discussed concerns about exe rcise : promote physical activity Last Documented On 3 11:28AM ; [facility] Discussed nutritional needs teach healthy choices including fruits and vegetables Last Documented On 2 2:01PM ; [facility] Patient education about a pr oper diet Last Documented On 2 2:01PM ; [facility] Discussed concerns about exe rcise : promote physical activity Last Documented On 2 2:01PM ; [facility] Discussed nutritional needs teach healthy choices including fruits and vegetables Last Documented On 2 2:11PM ; [facility] Patient education about a pr oper diet Last Documented On 2 2:11PM ; [facility] Discussed concerns about exe rcise : promote physical activity Last Documented On 2 2:11PM ; [facility] Discussed current self-care methods/coping skills. ~Validated and normalized pt's feelings while assisting patient process recent events. ~Discussed ongoing counseling. ~Discussed lifestyle changes to address chronic illness. ~Supported patient's personal health goals ~wordfinds. walk, read, eat, enjoy my best friesnd Last Documented On 2 5:54PM ; [facility] Discussed nutritional needs teach healthy choices including fruits and vegetables Last Documented On 2 10:04AM ; [facility] Patient education about a pr oper diet Last Documented On 2 10:04AM ; [facility] Discussed concerns about exe rcise : promote physical activity Last Documented On 2 10:04AM ; [facility] Discussed nutritional needs teach healthy choices including fruits and vegetables Last Documented On 2 1:25PM ; [facility] Patient education about a pr oper diet Last Documented On 2 1:25PM ; [facility] Discussed concerns about exe rcise : promote physical activity Last Documented On 2 1:25PM ; [facility] Discussed nutritional needs teach healthy choices including fruits and vegetables Last Documented On 1 10:08AM ; [facility] Patient education about a pr oper diet Last Documented On 1 10:08AM ; [facility] Discussed concerns about exe rcise : promote physical activity Last Documented On 1 10:08AM ; [facility] Discussed nutritional needs teach healthy choices including fruits and vegetables Last Documented On 1 1:12PM ; [facility] Patient education about a pr oper diet Last Documented On 1 1:12PM ; [facility] Patient education about a pr oper diet Last Documented On 1 1:30PM ; [facility] Patient education about meal planning Last Documented On 1 1:30PM ; [facility] Education about changing eat ing habits Last Documented On 1 1:30PM ; [facility] Patient education about high fiber diet Last Documented On 1 1:30PM ; [facility] Patient education about low fat diet Last Documented On 1 1:30PM ; [facility] Patient education about low cholesterol diet Last Documented On 1 1:30PM ; [facility] Patient education about low carbohydrate diet Last Documented On 1 1:30PM ; [facility] Patient education about high protein diet Last Documented On 1 1:30PM ; [facility] Discussed concerns about exe rcise : promote physical activity Last Documented On 1 1:12PM ; [facility] Education/counseling conduct ed by pharmacist Last Documented On 0 1:39PM ; [facility] Vaccination counseling Last Documented On 0 1:39PM ; [facility] Discussed concerns about exe rcise : promote physical activity Last Documented On 0 2:16PM ; [facility] Patient goals decrease short ness of breath episodes Last Documented On 0 2:11PM ; [facility] Patient states that she uses her [...] recently Last Documented On 0 2:24PM ; [facility] Patient education about a pr oper diet Last Documented On 0 2:54PM ; [facility] Patient education about meal planning Last Documented On 0 2:54PM ; [facility] Education about changing eat ing habits Last Documented On 0 2:54PM ; [facility] Patient education about high fiber diet Last Documented On 0 2:54PM ; [facility] Patient education about low fat diet Last Documented On 0 2:54PM ; [facility] Patient education about low cholesterol diet Last Documented On 0 2:54PM ; [facility] Patient education about low carbohydrate diet Last Documented On 0 2:54PM ; [facility] Patient education about high protein diet Last Documented On 0 2:54PM ; [facility] Discussed nutritional needs teach healthy choices including fruits and vegetables Last Documented On 0 11:11AM ; [facility] Patient education about a pr oper diet Last Documented On 0 11:11AM ; [facility] Patient education about a pr oper diet Last Documented On 0 11:28AM ; [facility] Patient education about meal planning Last Documented On 0 11:28AM ; [facility] Education about changing eat ing habits Last Documented On 0 11:28AM ; [facility] Patient education about high fiber diet Last Documented On 0 11:28AM ; [facility] Patient education about low fat diet Last Documented On 0 11:28AM ; [facility] Patient education about low cholesterol diet Last Documented On 0 11:28AM ; [facility] Patient education about low carbohydrate diet Last Documented On 0 11:28AM ; [facility] Patient education about high protein diet Last Documented On 0 11:28AM ; [facility] Discussed concerns about exe rcise : promote physical activity Last Documented On 0 11:11AM ; [facility] Education/counseling conduct ed by pharmacist Last Documented On 0 1:41PM ; [facility] Patient states that she stil l has issues using inhaler. [facility] Rarely uses her rescue inhaler, may use [...] own Last Documented On 0 2:08PM ; [facility] Education/counseling conduct ed by pharmacist Last Documented On 9 1:12PM ; [facility] Patient states that she stil l has issues with her inhaler with the spacer. Patient did not bring in inhaler or spacer. Patient was told to bring in inhalers at next scheduled visit for pharmacist to assess inhalation technique. Patient is agreeable Last Documented On 9 1:13PM ; [facility] Patient goals Start using ch deon to help with inhaling dulera Last Documented On 9 2:40PM ; [facility] Patient states that she is g [...] vaccines Last Documented On 9 2:51PM ; [facility] Discussed nutritional needs teach healthy choices including fruits and vegetables Last Documented On 9 9:29AM ; [facility] Patient education about a pr oper diet Last Documented On 9 9:29AM ; [facility] Discussed concerns about exe rcise : promote physical activity Last Documented On 9 9:29AM ; [facility] Work Phone: [phone]) 454-143303-27-2023 Instructions Includes: Instructions for all patient encounters Instructions to patient Intervention and counseling on cessation of tobacco use, 3-10 minutes Discussed medication and nicotine replacement for tobacco cessation Last Documented On 3 8:54AM ; [facility] Intervention and counseling on cessation of tobacco use, 3-10 minutes Discussed medication and nicotine replacement for tobacco cessation Last Documented On 2 1:56PM ; [facility] Intervention and counseling on cessation of tobacco use, 3-10 minutes Last Documented On 0 2:07PM ; [facility] Return to the clinic if cond ition worsens or new symptoms arise Last Documented On 9 1:59PM ; [facility] Intervention and counseling on cessation of tobacco use, 3-10 minutes Last Documented On 9 10:39AM ; [facility] Education and Decision Aids were provided during visit for: Discussed nutritional needs teach healthy choices including fruits and vegetables Last Documented On 3 8:32AM ; [facility] Patient education about a pr oper diet Last Documented On 3 8:32AM ; [facility] Discussed concerns about exe rcise : promote physical activity Last Documented On 3 8:32AM ; [facility] Discussed nutritional needs teach healthy choices including fruits and vegetables Last Documented On 3 11:28AM ; [facility] Patient education about a pr oper diet Last Documented On 3 11:28AM ; [facility] Discussed concerns about exe rcise : promote physical activity Last Documented On 3 11:28AM ; [facility] Discussed nutritional needs teach healthy choices including fruits and vegetables Last Documented On 2 2:01PM ; [facility] Patient education about a pr oper diet Last Documented On 2 2:01PM ; [facility] Discussed concerns about exe rcise : promote physical activity Last Documented On 2 2:01PM ; [facility] Discussed nutritional needs teach healthy choices including fruits and vegetables Last Documented On 2 2:11PM ; [facility] Patient education about a pr oper diet Last Documented On 2 2:11PM ; [facility] Discussed concerns about exe rcise : promote physical activity Last Documented On 2 2:11PM ; [facility] Discussed current self-care methods/coping skills. ~Validated and normalized pt's feelings while assisting patient process recent events. ~Discussed ongoing counseling. ~Discussed lifestyle changes to address chronic illness. ~Supported patient's personal health goals ~[employer]finds. walk, read, eat, enjoy my best friesnd Last Documented On 2 5:54PM ; [facility] Discussed nutritional needs teach healthy choices including fruits and vegetables Last Documented On 2 10:04AM ; [facility] Patient education about a pr oper diet Last Documented On 2 10:04AM ; [facility] Discussed concerns about exe rcise : promote physical activity Last Documented On 2 10:04AM ; [facility] Discussed nutritional needs teach healthy choices including fruits and vegetables Last Documented On 2 1:25PM ; [facility] Patient education about a pr oper diet Last Documented On 2 1:25PM ; [facility] Discussed concerns about exe rcise : promote physical activity Last Documented On 2 1:25PM ; [facility] Discussed nutritional needs teach healthy choices including fruits and vegetables Last Documented On 1 10:08AM ; [facility] Patient education about a pr oper diet Last Documented On 1 10:08AM ; [facility] Discussed concerns about exe rcise : promote physical activity Last Documented On 1 10:08AM ; [facility] Discussed nutritional needs teach healthy choices including fruits and vegetables Last Documented On 1 1:12PM ; [facility] Patient education about a pr oper diet Last Documented On 1 1:12PM ; [facility] Patient education about a pr oper diet Last Documented On 1 1:30PM ; [facility] Patient education about meal planning Last Documented On 1 1:30PM ; [facility] Education about changing eat ing habits Last Documented On 1 1:30PM ; [facility] Patient education about high fiber diet Last Documented On 1 1:30PM ; [facility] Patient education about low fat diet Last Documented On 1 1:30PM ; [facility] Patient education about low cholesterol diet Last Documented On 1 1:30PM ; [facility] Patient education about low carbohydrate diet Last Documented On 1 1:30PM ; [facility] Patient education about high protein diet Last Documented On 1 1:30PM ; [facility] Discussed concerns about exe rcise : promote physical activity Last Documented On 1 1:12PM ; [facility] Education/counseling conduct ed by pharmacist Last Documented On 0 1:39PM ; [facility] Vaccination counseling Last Documented On 0 1:39PM ; [facility] Discussed concerns about exe rcise : promote physical activity Last Documented On 0 2:16PM ; [facility] Patient goals decrease short ness of breath episodes Last Documented On 0 2:11PM ; [facility] Patient states that she uses her [...] recently Last Documented On 0 2:24PM ; [facility] Patient education about a pr oper diet Last Documented On 0 2:54PM ; [facility] Patient education about meal planning Last Documented On 0 2:54PM ; [facility] Education about changing eat ing habits Last Documented On 0 2:54PM ; [facility] Patient education about high fiber diet Last Documented On 0 2:54PM ; [facility] Patient education about low fat diet Last Documented On 0 2:54PM ; [facility] Patient education about low cholesterol diet Last Documented On 0 2:54PM ; [facility] Patient education about low carbohydrate diet Last Documented On 0 2:54PM ; [facility] Patient education about high protein diet Last Documented On 0 2:54PM ; [facility] Discussed nutritional needs teach healthy choices including fruits and vegetables Last Documented On 0 11:11AM ; [facility] Patient education about a pr oper diet Last Documented On 0 11:11AM ; [facility] Patient education about a pr oper diet Last Documented On 0 11:28AM ; [facility] Patient education about meal planning Last Documented On 0 11:28AM ; [facility] Education about changing eat ing habits Last Documented On 0 11:28AM ; [facility] Patient education about high fiber diet Last Documented On 0 11:28AM ; [facility] Patient education about low fat diet Last Documented On 0 11:28AM ; [facility] Patient education about low cholesterol diet Last Documented On 0 11:28AM ; [facility] Patient education about low carbohydrate diet Last Documented On 0 11:28AM ; [facility] Patient education about high protein diet Last Documented On 0 11:28AM ; [facility] Discussed concerns about exe rcise : promote physical activity Last Documented On 0 11:11AM ; [facility] Education/counseling conduct ed by pharmacist Last Documented On 0 1:41PM ; [facility] Patient states that she lonnie gonzalez [...] own Last Documented On 0 2:08PM ; [facility] Education/counseling conduct ed by pharmacist Last Documented On 9 1:12PM ; [facility] Patient states that she lonnie gonzalez has issues with her inhaler with the spacer. Patient did not bring in inhaler or spacer. Patient was told to bring in inhalers at next scheduled visit for pharmacist to assess inhalation technique. Patient is agreeable Last Documented On 9 1:13PM ; [facility] Patient goals Start using ch deon to help with inhaling dulera Last Documented On 9 2:40PM ; [facility] Patient states that she is g [...] vaccines Last Documented On 9 2:51PM ; [facility] Discussed nutritional needs teach healthy choices including fruits and vegetables Last Documented On 9 9:29AM ; [facility] Patient education about a pr oper diet Last Documented On 9 9:29AM ; [facility] Discussed concerns about exe rcise : promote physical activity Last Documented On 9 9:29AM ; [facility] Work Phone: 1([phone]) 609-537803-27-2023 Instructions Includes: Instructions for all patient encounters Instructions to patient Intervention and counseling on cessation of tobacco use, 3-10 minutes Discussed medication and nicotine replacement for tobacco cessation Last Documented On 3 8:54AM ; [facility] Intervention and counseling on cessation of tobacco use, 3-10 minutes Discussed medication and nicotine replacement for tobacco cessation Last Documented On 2 1:56PM ; [facility] Intervention and counseling on cessation of tobacco use, 3-10 minutes Last Documented On 0 2:07PM ; [facility] Return to the clinic if cond ition worsens or new symptoms arise Last Documented On 9 1:59PM ; [facility] Intervention and counseling on cessation of tobacco use, 3-10 minutes Last Documented On 9 10:39AM ; [facility] Education and Decision Aids were provided during visit for: Discussed nutritional needs teach healthy choices including fruits and vegetables Last Documented On 3 8:32AM ; [facility] Patient education about a pr oper diet Last Documented On 3 8:32AM ; [facility] Discussed concerns about exe rcise : promote physical activity Last Documented On 3 8:32AM ; [facility] Discussed nutritional needs teach healthy choices including fruits and vegetables Last Documented On 3 11:28AM ; [facility] Patient education about a pr oper diet Last Documented On 3 11:28AM ; [facility] Discussed concerns about exe rcise : promote physical activity Last Documented On 3 11:28AM ; [facility] Discussed nutritional needs teach healthy choices including fruits and vegetables Last Documented On 2 2:01PM ; [facility] Patient education about a pr oper diet Last Documented On 2 2:01PM ; [facility] Discussed concerns about exe rcise : promote physical activity Last Documented On 2 2:01PM ; [facility] Discussed nutritional needs teach healthy choices including fruits and vegetables Last Documented On 2 2:11PM ; [facility] Patient education about a pr oper diet Last Documented On 2 2:11PM ; [facility] Discussed concerns about exe rcise : promote physical activity Last Documented On 2 2:11PM ; [facility] Discussed current self-care methods/coping skills. ~Validated and normalized pt's feelings while assisting patient process recent events. ~Discussed ongoing counseling. ~Discussed lifestyle changes to address chronic illness. ~Supported patient's personal health goals ~wordfinds. walk, read, eat, enjoy my best friesnd Last Documented On 2 5:54PM ; [facility] Discussed nutritional needs teach healthy choices including fruits and vegetables Last Documented On 2 10:04AM ; [facility] Patient education about a pr oper diet Last Documented On 2 10:04AM ; [facility] Discussed concerns about exe rcise : promote physical activity Last Documented On 2 10:04AM ; [facility] Discussed nutritional needs teach healthy choices including fruits and vegetables Last Documented On 2 1:25PM ; [facility] Patient education about a pr oper diet Last Documented On 2 1:25PM ; [facility] Discussed concerns about exe rcise : promote physical activity Last Documented On 2 1:25PM ; [facility] Discussed nutritional needs teach healthy choices including fruits and vegetables Last Documented On 1 10:08AM ; [facility] Patient education about a pr oper diet Last Documented On 1 10:08AM ; [facility] Discussed concerns about exe rcise : promote physical activity Last Documented On 1 10:08AM ; [facility] Discussed nutritional needs teach healthy choices including fruits and vegetables Last Documented On 1 1:12PM ; [facility] Patient education about a pr oper diet Last Documented On 1 1:12PM ; [facility] Patient education about a pr oper diet Last Documented On 1 1:30PM ; [facility] Patient education about meal planning Last Documented On 1 1:30PM ; [facility] Education about changing eat ing habits Last Documented On 1 1:30PM ; [facility] Patient education about high fiber diet Last Documented On 1 1:30PM ; [facility] Patient education about low fat diet Last Documented On 1 1:30PM ; [facility] Patient education about low cholesterol diet Last Documented On 1 1:30PM ; [facility] Patient education about low carbohydrate diet Last Documented On 1 1:30PM ; [facility] Patient education about high protein diet Last Documented On 1 1:30PM ; [facility] Discussed concerns about exe rcise : promote physical activity Last Documented On 1 1:12PM ; [facility] Education/counseling conduct ed by pharmacist Last Documented On 0 1:39PM ; [facility] Vaccination counseling Last Documented On 0 1:39PM ; [facility] Discussed concerns about exe rcise : promote physical activity Last Documented On 0 2:16PM ; [facility] Patient goals decrease short ness of breath episodes Last Documented On 0 2:11PM ; [facility] Patient states that she uses her [...] recently Last Documented On 0 2:24PM ; [facility] Patient education about a pr oper diet Last Documented On 0 2:54PM ; [facility] Patient education about meal planning Last Documented On 0 2:54PM ; [facility] Education about changing eat ing habits Last Documented On 0 2:54PM ; [facility] Patient education about high fiber diet Last Documented On 0 2:54PM ; [facility] Patient education about low fat diet Last Documented On 0 2:54PM ; [facility] Patient education about low cholesterol diet Last Documented On 0 2:54PM ; [facility] Patient education about low carbohydrate diet Last Documented On 0 2:54PM ; [facility] Patient education about high protein diet Last Documented On 0 2:54PM ; [facility] Discussed nutritional needs teach healthy choices including fruits and vegetables Last Documented On 0 11:11AM ; [facility] Patient education about a pr oper diet Last Documented On 0 11:11AM ; [facility] Patient education about a pr oper diet Last Documented On 0 11:28AM ; [facility] Patient education about meal planning Last Documented On 0 11:28AM ; [facility] Education about changing eat ing habits Last Documented On 0 11:28AM ; [facility] Patient education about high fiber diet Last Documented On 0 11:28AM ; [facility] Patient education about low fat diet Last Documented On 0 11:28AM ; [facility] Patient education about low cholesterol diet Last Documented On 0 11:28AM ; [facility] Patient education about low carbohydrate diet Last Documented On 0 11:28AM ; [facility] Patient education about high protein diet Last Documented On 0 11:28AM ; [facility] Discussed concerns about exe rcise : promote physical activity Last Documented On 0 11:11AM ; [facility] Education/counseling conduct ed by pharmacist Last Documented On 0 1:41PM ; [facility] Patient states that she lonnie gonzalez [...] own Last Documented On 0 2:08PM ; [facility] Education/counseling conduct ed by pharmacist Last Documented On 9 1:12PM ; [facility] Patient states that she lonnie gonzalez has issues with her inhaler with the spacer. Patient did not bring in inhaler or spacer. Patient was told to bring in inhalers at next scheduled visit for pharmacist to assess inhalation technique. Patient is agreeable Last Documented On 9 1:13PM ; [facility] Patient goals Start using ch deon to help with inhaling dulera Last Documented On 9 2:40PM ; [facility] Patient states that she is g [...] vaccines Last Documented On 9 2:51PM ; [facility] Discussed nutritional needs teach healthy choices including fruits and vegetables Last Documented On 9 9:29AM ; [facility] Patient education about a pr oper diet Last Documented On 9 9:29AM ; [facility] Discussed concerns about exe rcise : promote physical activity Last Documented On 9 9:29AM ; [facility] Work Phone: 1(527) 105-710201-16-2023 Progress note* Progress note Date Encounter Last Documented by 06/18/2022 Medical Established Patient Last documented on 06/18/2022; 12:11 PM, Karla Clark CNP; [facility] Active Problems & Conditions - R94.31 [...] EVERY DAY, 30 days, 11 refills - [place] Carbonate 300MG Oral Tablet 300 MG take [...] Bipolar disorder NOS Depression Heart Attack 03/2021 [facility] [place]. Surgical: - Hysterectomy Social History Environmental Exposure: [...] BP-Sitting L125/78 mmHg BP Cuff SizeRegular Pulse Rate-Kwilchh08 bpm Temp-Akvxvuvo50.6 F Bxrztc49 in Rwlplw866 lbs 3.2 oz Body Mass Index24.9 kg/m2 Body Surface Area1.7 m2 Oxygen Byqhsvaxmf02 % General Appearance: - Awake. - Alert. [...] needed clothing: No, unable to get needed child care attendant school: No, unable to get needed phone: No, [...] 60 years or older (3 points) [Pre-DM]. [facility]01-16-2023 Instructions Includes: Instructions for all patient encounters Instructions to patient Intervention and counseling on cessation of tobacco use, 3-10 minutes Discussed medication and nicotine replacement for tobacco cessation Last Documented On 2 1:56PM ; [facility] Intervention and counseling on cessation of tobacco use, 3-10 minutes Last Documented On 0 2:07PM ; [facility] Return to the clinic if cond ition worsens or new symptoms arise Last Documented On 9 1:59PM ; [facility] Intervention and counseling on cessation of tobacco use, 3-10 minutes Last Documented On 9 10:39AM ; [facility] Education and Decision Aids were provided during visit for: Discussed nutritional needs teach healthy choices including fruits and vegetables Last Documented On 3 11:28AM ; [facility] Patient education about a pr oper diet Last Documented On 3 11:28AM ; [facility] Discussed concerns about exe rcise : promote physical activity Last Documented On 3 11:28AM ; [facility] Discussed nutritional needs teach healthy choices including fruits and vegetables Last Documented On 2 2:01PM ; [facility] Patient education about a pr oper diet Last Documented On 2 2:01PM ; [facility] Discussed concerns about exe rcise : promote physical activity Last Documented On 2 2:01PM ; [facility] Discussed nutritional needs teach healthy choices including fruits and vegetables Last Documented On 2 2:11PM ; [facility] Patient education about a pr oper diet Last Documented On 2 2:11PM ; [facility] Discussed concerns about exe rcise : promote physical activity Last Documented On 2 2:11PM ; [facility] Discussed current self-care methods/coping skills. ~Validated and normalized pt's feelings while assisting patient process recent events. ~Discussed ongoing counseling. ~Discussed lifestyle changes to address chronic illness. ~Supported patient's personal health goals ~wordfinds. walk, read, eat, enjoy my best friesnd Last Documented On 2 5:54PM ; [facility] Discussed nutritional needs teach healthy choices including fruits and vegetables Last Documented On 2 10:04AM ; [facility] Patient education about a pr oper diet Last Documented On 2 10:04AM ; [facility] Discussed concerns about exe rcise : promote physical activity Last Documented On 2 10:04AM ; [facility] Discussed nutritional needs teach healthy choices including fruits and vegetables Last Documented On 2 1:25PM ; [facility] Patient education about a pr oper diet Last Documented On 2 1:25PM ; [facility] Discussed concerns about exe rcise : promote physical activity Last Documented On 2 1:25PM ; [facility] Discussed nutritional needs teach healthy choices including fruits and vegetables Last Documented On 1 10:08AM ; [facility] Patient education about a pr oper diet Last Documented On 1 10:08AM ; [facility] Discussed concerns about exe rcise : promote physical activity Last Documented On 1 10:08AM ; [facility] Discussed nutritional needs teach healthy choices including fruits and vegetables Last Documented On 1 1:12PM ; [facility] Patient education about a pr oper diet Last Documented On 1 1:12PM ; [facility] Patient education about a pr oper diet Last Documented On 1 1:30PM ; [facility] Patient education about meal planning Last Documented On 1 1:30PM ; [facility] Education about changing eat ing habits Last Documented On 1 1:30PM ; [facility] Patient education about high fiber diet Last Documented On 1 1:30PM ; [facility] Patient education about low fat diet Last Documented On 1 1:30PM ; [facility] Patient education about low cholesterol diet Last Documented On 1 1:30PM ; [facility] Patient education about low carbohydrate diet Last Documented On 1 1:30PM ; [facility] Patient education about high protein diet Last Documented On 1 1:30PM ; [facility] Discussed concerns about exe rcise : promote physical activity Last Documented On 1 1:12PM ; [facility] Education/counseling conduct ed by pharmacist Last Documented On 0 1:39PM ; [facility] Vaccination counseling Last Documented On 0 1:39PM ; [facility] Discussed concerns about exe rcise : promote physical activity Last Documented On 0 2:16PM ; [facility] Patient goals decrease short ness of breath episodes Last Documented On 0 2:11PM ; [facility] Patient states that she uses her [...] recently Last Documented On 0 2:24PM ; [facility] Patient education about a pr oper diet Last Documented On 0 2:54PM ; [facility] Patient education about meal planning Last Documented On 0 2:54PM ; [facility] Education about changing eat ing habits Last Documented On 0 2:54PM ; [facility] Patient education about high fiber diet Last Documented On 0 2:54PM ; [facility] Patient education about low fat diet Last Documented On 0 2:54PM ; [facility] Patient education about low cholesterol diet Last Documented On 0 2:54PM ; [facility] Patient education about low carbohydrate diet Last Documented On 0 2:54PM ; [facility] Patient education about high protein diet Last Documented On 0 2:54PM ; [facility] Discussed nutritional needs teach healthy choices including fruits and vegetables Last Documented On 0 11:11AM ; [facility] Patient education about a pr oper diet Last Documented On 0 11:11AM ; [facility] Patient education about a pr oper diet Last Documented On 0 11:28AM ; [facility] Patient education about meal planning Last Documented On 0 11:28AM ; [facility] Education about changing eat ing habits Last Documented On 0 11:28AM ; [facility] Patient education about high fiber diet Last Documented On 0 11:28AM ; [facility] Patient education about low fat diet Last Documented On 0 11:28AM ; [facility] Patient education about low cholesterol diet Last Documented On 0 11:28AM ; [facility] Patient education about low carbohydrate diet Last Documented On 0 11:28AM ; [facility] Patient education about high protein diet Last Documented On 0 11:28AM ; [facility] Discussed concerns about exe rcise : promote physical activity Last Documented On 0 11:11AM ; [facility] Education/counseling conduct ed by pharmacist Last Documented On 0 1:41PM ; [facility] Patient states that she lonnie gonzalez [...] own Last Documented On 0 2:08PM ; [facility] Education/counseling conduct ed by pharmacist Last Documented On 9 1:12PM ; [facility] Patient states that she lonnie gonzalez has issues with her inhaler with the spacer. Patient did not bring in inhaler or spacer. Patient was told to bring in inhalers at next scheduled visit for pharmacist to assess inhalation technique. Patient is agreeable Last Documented On 9 1:13PM ; [facility] Patient goals Start using ch deon to help with inhaling dulera Last Documented On 9 2:40PM ; [facility] Patient states that she is g [...] vaccines Last Documented On 9 2:51PM ; [facility] Discussed nutritional needs teach healthy choices including fruits and vegetables Last Documented On 9 9:29AM ; [facility] Patient education about a pr oper diet Last Documented On 9 9:29AM ; [facility] Discussed concerns about exe rcise : promote physical activity Last Documented On 9 9:29AM ; [facility] Work Phone: 1([phone]) 360-746310-18-2022 Evaluation note Includes: Assessments for all patient encounters Findings Encounter Date Bipolar disorder NOS Established Pita ent with Yin Feliz [facility] 03/20/2022 Schizoaffective disorder Established Patient with Yin Feliz [facility] 03/20/2022 No cough Medical Established Patient with Karla Amber CROOKS 12/20/2021 Visit for: screening for hum an immunodeficiency virus Medical Established Patient with Karla Amber [employer] 12/20/2021 Z68.24 - Body mass index [BM I] 24.0-24.9, adult Medical Established Patient with Karla Amber [employer] 12/20/2021 Bipolar disorder NOS Established Pita ent with Yin Feliz [facility] 11/03/2021 Bipolar schizoaffective disorder Esta [...] cessation Medical Established Patient with Karla Amber [facility] 07/28/2021 Nicotine dependence Medical Established Patient with Karla Clark [facility] 07/28/2021 Z68.24 - Body mass index [BM I] 24.0-24.9, adult Medical Established Patient with Karla Clark [employer] 07/28/2021 Assess Colon screening Medical Establish ed Patient with Karla Clark [employer] 05/08/2021 Diabetes Risk Test Score was four score 05/08/2021 Medical Established Patient with Karla Clark [facility] 05/08/2021 Routine adult history and ph ysical (18-64 yrs) without abnormal findings Medical Established Patient with Karla Clark [employer] 05/08/2021 Z68.24 - Body mass index [BM I] 24.0-24.9, adult Medical Established Patient with Karla Clark [facility] 05/08/2021 Z68.24 - Body mass index [BM I] 24.0-24.9, adult Medical Established Patient with Karla Clark [facility] 06/17/2020 Overweight Medical Established Patient with Karla Clark [facility] 06/06/2020 Z68.25 - Body mass index [BM I] 25.0-25.9, adult Medical Established Patient with Karla Clark [facility] 06/06/2020 Antiasthmatics [facility] with Karla Amber [facility] 05/06/2020 Assessment of tobacco use [facility] with Karla Amber [facility] 05/06/2020 Body mass index [facility] with Karlajulius Clark [facility] 05/06/2020 Chronic obstructive pulmonary disease CP [facility] with Karlajulius Clark [facility] 05/06/2020 Overweight [facility] with Karla Amber [facility] 05/06/2020 Z11.4 - Encounter for screen ing for human immunodeficiency virus [HIV] [facility] with Karla Amber [facility] 05/06/2020 Diabetes Risk Test Score was three score 03/31/2020 Medical Established Patient with Karla Amber [facility] 03/31/2020 Overweight Medical Established Patient with Karla Amber [facility] 03/31/2020 Z68.25 - Body mass index [BM I] 25.0-25.9, adult Medical Established Patient with Karla Amber [facility] 03/31/2020 Encounter for Immunization Nurse Visit with Gary Clark [facility] 03/14/2020 Body mass index Medical Established Patient with Karla Floresen MINUTE CLERK FOR BASIC TRAFFIC 02/26/2020 Overweight Medical Established Patient with Karlajulius Floresen MINUTE CLERK [employer] BASIC TRAFFIC 02/26/2020 Overweight Medical Established Patient with Karlajulius Floresen [employer]UTE CLERK [employer] 07/23/2019 Z68.27 - Body mass index (BM I) 27.0-27.9, adult Medical Established Patient with Karla Floresen MINUTE CLERK [employer]FFIC 07/23/2019 Occasional asthma CPS- [facility]hma Clinic- F/U with Karla Amber [employer] 06/05/2019 Overweight CPS- [facility]- F/U with Karla Amber [employer] 06/05/2019 Z68.27 - Body mass index (BM I) 27.0-27.9 adult CPS- [facility] Clinic- F/U with Karla Amber [employer] 06/05/2019 Occasional asthma CPS Med Review with Karla Amber [facility] 04/23/2019 Overweight CPS Med Review with Karlajulius Floresen [facility] 04/23/2019 Z68.27 - Body mass index (BM I) 27.0-27.9 adult CPS Med Review with Karla Amber [facility] 04/23/2019 Acute pharyngitis Medical Established Patient with Brandy Warren [facility] 04/15/2019 Asthmatic bronchitis with ac [place] exacerbation Medical Established Patient with Brandy Warren [facility] 04/15/2019 Fagerstrom Score was two Medical Establi shed Patient with Brandy Warren [facility] 04/15/2019 PHQ-9: total score was three 04/15/2019 Medical Established Patient with Brandy Warren [facility] 04/15/2019 Body mass index Medical Established Patient with Karla Clark [facility] 03/05/2019 Diabetes Risk Test Score was three score Medical Established Patient with Karla Floresen [facility] 03/05/2019 Overweight Medical Established Patient with Karla Amber [facility] 03/05/2019 Z68.28 - Body mass index (BM I) 28.0-28.9, adult Medical Established Patient with Karla Floresen [facility] 12/22/2018 Assess routine adult history and physical (18 - 64 yrs) Medical Established Patient with Karlajulius Floresen [employer]UTE CLERK [employer] 11/06/2018 Overweight Medical Established Patient with Karla Amber [employer] 11/06/2018 Z68.28 - Body mass index (BM I) 28.0-28.9, adult Medical Established Patient with Karlajulius Floresen [employer] 11/06/2018 Assess dysphagia Medical Established Patient with Karla Amber [facility] 09/11/2018 Assess routine adult history and physical (18 - 64 yrs) Medical Established Patient with Karla Clark [employer] 09/11/2018 Assess primary insomnia with sleep apnea Medical Established Patient with Karlajulius Clark [employer] 09/04/2018 Assess routine adult history and physical (18 - 64 yrs) Medical Established Patient with Karla Amber [employer] CL[employer] 09/04/2018 Overweight Medical Established Patient with Karla Amber [employer] 09/04/2018 Z68.29 - Body mass index (BM I) 29.0-29.9, adult Medical Established Patient with Karla Clark [employer] 09/04/2018 Assess vaginal candidiasis Medical Estab lished Patient with Karlajulius Clark [employer]ERK [employer] 07/31/2018 [facility] Work Phone: 1(218) 983-887610-18-2022 Evaluation note Includes: Assessments for all patient encounters Findings Encounter Date Schizoaffective disorder BH Established Patient with Yin Feliz [facility] 03/20/2022 No cough Medical Established Patient with Karlajulius Clark [employer] 12/20/2021 Visit for: screening for hum an immunodeficiency virus Medical Established Patient with Karlajulius Clark [employer] 12/20/2021 Z68.24 - Body mass index [BM I] 24.0-24.9, adult Medical Established Patient with Karlajulius Clark [employer] 12/20/2021 Bipolar disorder NOS BH Established Pita ent [facility] 11/03/2021 Bipolar schizoaffective disorder BH Esta blished [...] cessation Medical Established Patient with Karla Clark [employer] 07/28/2021 Nicotine dependence Medical Established Patient with Karla Amber [employer] 07/28/2021 Z68.24 - Body mass index [BM I] 24.0-24.9, adult Medical Established Patient with Karla Amber [facility] 07/28/2021 Assess Colon screening Medical Establish ed Patient with Karla Clark [employer] 05/08/2021 Diabetes Risk Test Score was four score 05/08/2021 Medical Established Patient with Karla Floresen [employer] 05/08/2021 Routine adult history and ph ysical (18-64 yrs) without abnormal findings Medical Established Patient with Karla Amber [employer] 05/08/2021 Z68.24 - Body mass index [BM I] 24.0-24.9, adult Medical Established Patient with Karla Amber [employer] 05/08/2021 Z68.24 - Body mass index [BM I] 24.0-24.9, adult Medical Established Patient with Karla Amber [employer] 06/17/2020 Overweight Medical Established Patient with Karla Amber [employer] 06/06/2020 Z68.25 - Body mass index [BM I] 25.0-25.9, adult Medical Established Patient with Karlajulius Clark [employer] 06/06/2020 Antiasthmatics CPS Asthma Clinic-Ne w with Karla Clark [employer] 05/06/2020 Assessment of tobacco use CPS Asthma Cli yash-New with Karlajulius Clark [facility] 05/06/2020 Body mass index CPS Asthma Clinic-Ne w with Karlajulius Clark [facility] 05/06/2020 Chronic obstructive pulmonary disease CP S Asthma Clinic-New with Karlajulius Clark [facility] 05/06/2020 Overweight CPS Asthma Clinic-Ne w with Karlajulius Clark [facility] 05/06/2020 Z11.4 - Encounter for screen ing for human immunodeficiency virus [HIV] CPS Asthma Clinic-New with Karlajulius Clark [facility] 05/06/2020 Diabetes Risk Test Score was three score 03/31/2020 Medical Established Patient with Karlajulius Clark [facility] 03/31/2020 Overweight Medical Established Patient with Karlajulius Clark [facility] 03/31/2020 Z68.25 - Body mass index [BM I] 25.0-25.9, adult Medical Established Patient with Karlajulius Clark [employer] 03/31/2020 Encounter for Immunization Nurse Visit with Gary Clark [employer] 03/14/2020 Body mass index Medical Established Patient with Karlajulius Clark [employer] 02/26/2020 Overweight Medical Established Patient with Karlajulius Clark [employer] 02/26/2020 Overweight Medical Established Patient with Karlajulius Clark [employer] 07/23/2019 Z68.27 - Body mass index (BM I) 27.0-27.9, adult Medical Established Patient with Karlajulius Floresen MIN[employer] CLERK [employer] 07/23/2019 Occasional asthma CPS- Asthma Clinic- F/U with Karlajulius Floresen [employer] 06/05/2019 Overweight CPS- [facility] Clinic- F/U with Karla Amber [employer] 06/05/2019 Z68.27 - Body mass index (BM I) 27.0-27.9 adult CPS- [facility] Clinic- F/U with Karlajulius Floresen [employer] 06/05/2019 Occasional asthma CPS Med Review with Karlajulius Clark [facility] 04/23/2019 Overweight CPS Med Review with Karla Amber [facility] 04/23/2019 Z68.27 - Body mass index (BM I) 27.0-27.9 adult CPS Med Review with Karlajulius Clark [facility] 04/23/2019 Acute pharyngitis Medical Established Patient with Brandy Warren [employer] 04/15/2019 Asthmatic bronchitis with ac [place] exacerbation Medical Established Patient with Brandy Warren [employer] 04/15/2019 Fagerstrom Score was two Medical Establi shed Patient with Brandy Warren [employer] 04/15/2019 PHQ-9: total score was three 04/15/2019 Medical Established Patient with Brandy Warren [facility] 04/15/2019 Body mass index Medical Established Patient with Karla Clark [facility] 03/05/2019 Diabetes Risk Test Score was three score Medical Established Patient with Karla Amber [facility] 03/05/2019 Overweight Medical Established Patient with Karla Amber [facility] 03/05/2019 Z68.28 - Body mass index (BM I) 28.0-28.9, adult Medical Established Patient with Karla Clark [facility] 12/22/2018 Assess routine adult history and physical (18 - 64 yrs) Medical Established Patient with Karlajulius Floresen [employer] CLERK [employer] 11/06/2018 Overweight Medical Established Patient with Karla Amber [employer] 11/06/2018 Z68.28 - Body mass index (BM I) 28.0-28.9, adult Medical Established Patient with Karla Amber [employer] 11/06/2018 Assess dysphagia Medical Established Patient with Karla Amber [employer] 09/11/2018 Assess routine adult history and physical (18 - 64 yrs) Medical Established Patient with Karla Amber [employer] 09/11/2018 Assess primary insomnia with sleep apnea Medical Established Patient with Karlajulius Floresen [employer] 09/04/2018 Assess routine adult history and physical (18 - 64 yrs) Medical Established Patient with Karla Amber [employer] 09/04/2018 Overweight Medical Established Patient with Karla Clark [employer] 09/04/2018 Z68.29 - Body mass index (BM I) 29.0-29.9, adult Medical Established Patient with Karla Clark [employer] 09/04/2018 Assess vaginal candidiasis Medical Estab lished Patient with Karla Clark MINUTE CLERK [employer] 07/31/2018 [facility] Work Phone: 1([phone]) 690-393510-18-2022 History general Narrative - Reported Includes: Medical History in patient's chart Description Last Updated No previous hospitalizations 03/20/2022 Currently nursing 11/03/2021 [facility] status unknown for sexually tra nsmitted infection 11/03/2021 11/03/2021 Not planning to have a baby in the next 12 months 11/03/2021 Heart Attack 03/2021 [facility] [place] 1 07/09/2020 A recent immunization for flu 05/06/2020 Patient gave verbal consent for tele[employer]alog[employer] th 08/31/2019 History of abnormal electrocardiogram History of asthma 07/31/2018 History of cardiovascular disorder 07/31 History of respiratory disorder 07/31/19 19 History of bipolar disorder NOS 07/31/19 19 History of depression 07/31/2018 History of psychiatric disorders 019 [facility] Work Phone: 1(443) 116-678810-18-2022 History general Narrative - Reported Includes: Medical History in patient's chart Description Last Updated No previous hospitalizations 03/20/2022 Last Documented On 2 2:28PM ; [facility] Currently nursing 11/03/2021 Last Documented On 2 7:00PM ; [facility] status unknown for sexually tra nsmitted infection 11/03/2021 Last Documented On 2 7:00PM ; [facility] 11/03/2021 Last Documented On 2 7:00PM ; [facility] Not planning to have a baby in the next 12 months 11/03/2021 Last Documented On 2 7:00PM ; [facility] Heart Attack 03/2021 [facility] [place] 1 07/09/2020 Last Documented On 1 10:59AM ; [facility] A recent immunization for flu 05/06/2020 Last Documented On 0 7:27PM ; [facility] Patient gave verbal consent for teleheal th 08/31/2019 Last Documented On 0 9:21AM ; [facility] History of abnormal electrocardiogram Last Documented On 9 2:12PM ; [facility] History of asthma 07/31/2018 Last Documented On 9 2:12PM ; [facility] History of cardiovascular disorder 07/31 Last Documented On 9 2:12PM ; [facility] History of respiratory disorder 07/31/19 19 Last Documented On 9 2:12PM ; [facility] History of bipolar disorder NOS 07/31/19 19 Last Documented On 9 2:12PM ; [facility] History of depression 07/31/2018 Last Documented On 9 2:12PM ; [facility] History of psychiatric disorders 019 Last Documented On 9 2:12PM ; [facility] Work Phone: 1(825) 554-122610-18-2022 History general Narrative - Reported Includes: Medical History in patient's chart Description Last Updated No previous hospitalizations 03/20/2022 Last Documented On 2 2:28PM ; [facility] Currently nursing 11/03/2021 Last Documented On 2 7:00PM ; [facility] status unknown for sexually tra nsmitted infection 11/03/2021 Last Documented On 2 7:00PM ; [facility] 11/03/2021 Last Documented On 2 7:00PM ; [facility] Not planning to have a baby in the next 12 months 11/03/2021 Last Documented On 2 7:00PM ; [facility] Heart Attack 03/2021 [facility] 1 07/09/2020 Last Documented On 1 10:59AM ; [facility] A recent immunization for flu 05/06/2020 Last Documented On 0 7:27PM ; [facility] Patient gave verbal consent for teleheal th 08/31/2019 Last Documented On 0 9:21AM ; [facility] History of abnormal electrocardiogram Last Documented On 9 2:12PM ; [facility] History of asthma 07/31/2018 Last Documented On 9 2:12PM ; [facility] History of cardiovascular disorder 07/31 Last Documented On 9 2:12PM ; [facility] History of respiratory disorder 07/31/19 19 Last Documented On 9 2:12PM ; [facility] History of bipolar disorder NOS 07/31/19 19 Last Documented On 9 2:12PM ; [facility] History of depression 07/31/2018 Last Documented On 9 2:12PM ; [facility] History of psychiatric disorders 019 Last Documented On 9 2:12PM ; [facility] Work Phone: [phone]) 814-802810-18-2022 History general Narrative - Reported Includes: Medical History in patient's chart Description Last Updated No previous hospitalizations 03/20/2022 Last Documented On 2 2:28PM ; [facility] Currently nursing 11/03/2021 Last Documented On 2 7:00PM ; [facility] status unknown for sexually tra nsmitted infection 11/03/2021 Last Documented On 2 7:00PM ; [facility] 11/03/2021 Last Documented On 2 7:00PM ; [facility] Not planning to have a baby in the next 12 months 11/03/2021 Last Documented On 2 7:00PM ; [facility] Heart Attack 03/2021 [facility] 1 07/09/2020 Last Documented On 1 10:59AM ; [facility] A recent immunization for flu 05/06/2020 Last Documented On 0 7:27PM ; [facility] Patient gave verbal consent for teleheal th 08/31/2019 Last Documented On 0 9:21AM ; [facility] History of abnormal electrocardiogram Last Documented On 9 2:12PM ; [facility] History of asthma 07/31/2018 Last Documented On 9 2:12PM ; [facility] History of cardiovascular disorder 07/31 Last Documented On 9 2:12PM ; [facility] History of respiratory disorder 07/31/19 19 Last Documented On 9 2:12PM ; [facility] History of bipolar disorder NOS 07/31/19 19 Last Documented On 9 2:12PM ; [facility] History of depression 07/31/2018 Last Documented On 9 2:12PM ; [facility] History of psychiatric disorders 019 Last Documented On 9 2:12PM ; [facility] Work Phone: 1(862) 448-412110-18-2022 History general Narrative - Reported Includes: Medical History in patient's chart Description Last Updated No previous hospitalizations 03/20/2022 Last Documented On 2 2:28PM ; [facility] Currently nursing 11/03/2021 Last Documented On 2 7:00PM ; [facility] status unknown for sexually tra nsmitted infection 11/03/2021 Last Documented On 2 7:00PM ; [facility] 11/03/2021 Last Documented On 2 7:00PM ; [facility] Not planning to have a baby in the next 12 months 11/03/2021 Last Documented On 2 7:00PM ; [facility] Heart Attack 03/2021 [facility] 1 07/09/2020 Last Documented On 1 10:59AM ; [facility] A recent immunization for flu 05/06/2020 Last Documented On 0 7:27PM ; [facility] Patient gave verbal consent for teleheal th 08/31/2019 Last Documented On 0 9:21AM ; [facility] History of abnormal electrocardiogram Last Documented On 9 2:12PM ; [facility] History of asthma 07/31/2018 Last Documented On 9 2:12PM ; [facility] History of cardiovascular disorder 07/31 Last Documented On 9 2:12PM ; [facility] History of respiratory disorder 07/31/19 19 Last Documented On 9 2:12PM ; [facility] History of bipolar disorder NOS 07/31/19 19 Last Documented On 9 2:12PM ; [facility] History of depression 07/31/2018 Last Documented On 9 2:12PM ; [facility] History of psychiatric disorders 019 Last Documented On 9 2:12PM ; [facility] Work Phone: 1(910) 116-550010-04-2022 History of Present illness Narrative* Soni Sosa - 03/06/2022 1:00 PM EDT Explained policies and procedure of an echocardiogram/Doppler study. [facility]: [phone] 367-839107-20-2022 Evaluation note Includes: Assessments for all patient encounters Findings Encounter Date No cough Medical Established Patient with Karla Clark [employer]UTE CLERK [employer]FF[employer] 12/20/2021 Visit for: screening for hum an immunodeficiency virus Medical Established Patient with Karla Clark [facility] 12/20/2021 Z68.24 - Body mass index [BM I] 24.0-24.9, adult Medical Established Patient with Karla Clark [employer] CL[employer] 12/20/2021 Bipolar disorder NOS BH Established Pita ent with Yin Feliz [facility] 11/03/2021 Bipolar schizoaffective disorder BH Esta blished Patient with Yin Feliz [facility] 11/03/2021 PLAN Medical Established Patient with Don Pino MD 11/03/2021 Abnormal electrocardiogram Medical Estab lished Patient with Don Pino MD 11/03/2021 Z68.24 - Body mass index [BM I] 24.0-24.9, adult Medical Established Patient with Don Pino MD 11/03/2021 Cough Medical Established Patient with Karla Amber MINUTE CLERK [employer] 07/28/2021 Intervention and counseling on cessation of tobacco use, 3-10 minutes Discussed medication and nicotine replacement for tobacco cessation Medical Established Patient with Karla Amber [facility] 07/28/2021 Nicotine dependence Medical Established Patient with Karla Clark [facility] 07/28/2021 Z68.24 - Body mass index [BM I] 24.0-24.9, adult Medical Established Patient with Karla Clark [facility] 07/28/2021 Assess Colon screening Medical Establish ed Patient with Karla Clark [facility] 05/08/2021 Diabetes Risk Test Score was four score 05/08/2021 Medical Established Patient with Karla Clark [facility] 05/08/2021 Routine adult history and ph ysical (18-64 yrs) without abnormal findings Medical Established Patient with Karla Clark [facility] 05/08/2021 Z68.24 - Body mass index [BM I] 24.0-24.9, adult Medical Established Patient with Karlajulius Clark [facility] 05/08/2021 Z68.24 - Body mass index [BM I] 24.0-24.9, adult Medical Established Patient with Karlajulius Clark [facility] 06/17/2020 Overweight Medical Established Patient with Karla Clark [facility] 06/06/2020 Z68.25 - Body mass index [BM I] 25.0-25.9, adult Medical Established Patient with Karlajulius Clark [facility] 06/06/2020 Antiasthmatics CPS Asthma Clinic-Ne w with [facility] 05/06/2020 Assessment of tobacco use CPS Asthma Cli yash-New with [facility] 05/06/2020 Body mass index CPS Asthma Clinic-Ne w with Karla Amber [facility] 05/06/2020 Chronic obstructive pulmonary disease CP S Asthma Clinic-New with [facility] 05/06/2020 Overweight CPS Asthma Clinic-Ne w with [facility] 05/06/2020 Z11.4 - Encounter for screen ing for human immunodeficiency virus [HIV] CPS Asthma Clinic-New with [facility] 05/06/2020 Diabetes Risk Test Score was three score 03/31/2020 Medical Established Patient with Karla Clark [facility] 03/31/2020 Overweight Medical Established Patient with Karla Clark [facility] 03/31/2020 Z68.25 - Body mass index [BM I] 25.0-25.9, adult Medical Established Patient with Karla Clark [facility] 03/31/2020 Encounter for Immunization Nurse Visit with Gary Clark [facility] 03/14/2020 Body mass index Medical Established Patient with Karla Clark [facility] 02/26/2020 Overweight Medical Established Patient with Karla Clark [facility] 02/26/2020 Overweight Medical Established Patient with Karla Clark [facility] 07/23/2019 Z68.27 - Body mass index (BM I) 27.0-27.9, adult Medical Established Patient with Karla Clark [facility] 07/23/2019 Occasional asthma CPS- Asthma Clinic- F/U with Karla Amber [facility] 06/05/2019 Overweight CPS- Asthma Clinic- F/U with Karla Clakr [facility] 06/05/2019 Z68.27 - Body mass index (BM I) 27.0-27.9 adult CPS- Asthma Clinic- F/U with Karla Amber [facility] 06/05/2019 Occasional asthma CPS Med Review with Karla Floresen [facility] 04/23/2019 Overweight CPS Med Review with Karla Clark [facility] 04/23/2019 Z68.27 - Body mass index (BM I) 27.0-27.9 adult CPS Med Review with Karla Clark [facility] 04/23/2019 Acute pharyngitis Medical Established Patient with Brandy Serranoer [facility] 04/15/2019 Asthmatic bronchitis with ac [place] exacerbation Medical Established Patient with Brandy Serranoer [facility] 04/15/2019 Fagerstrom Score was two Medical Establi shed Patient with Brandy Serranoer [facility] 04/15/2019 PHQ-9: total score was three 04/15/2019 Medical Established Patient with Brandy Serranoer [facility] 04/15/2019 Body mass index Medical Established Patient with Karla Clark [facility] 03/05/2019 Diabetes Risk Test Score was three score Medical Established Patient with Karla Amber [facility] 03/05/2019 Overweight Medical Established Patient with Karla Floresen [facility] 03/05/2019 Z68.28 - Body mass index (BM I) 28.0-28.9, adult Medical Established Patient with Karla Floresen [facility] 12/22/2018 Assess routine adult history and physical (18 - 64 yrs) Medical Established Patient with Karlajulius Clark [employer] 11/06/2018 Overweight Medical Established Patient with Karla Amber [employer] 11/06/2018 Z68.28 - Body mass index (BM I) 28.0-28.9, adult Medical Established Patient with Karla Amber [employer] 11/06/2018 Assess dysphagia Medical Established Patient with Karla Amber [employer] 09/11/2018 Assess routine adult history and physical (18 - 64 yrs) Medical Established Patient with Karla Amber [employer] CL[employer] 09/11/2018 Assess primary insomnia with sleep apnea Medical Established Patient with Karla Amber [employer] 09/04/2018 Assess routine adult history and physical (18 - 64 yrs) Medical Established Patient with Karla Amber [employer] CL[employer] 09/04/2018 Overweight Medical Established Patient with Karla Amber [employer]UTE CL[employer] 09/04/2018 Z68.29 - Body mass index (BM I) 29.0-29.9, adult Medical Established Patient with Karlajulius Clark [employer] 09/04/2018 Assess vaginal candidiasis Medical Estab lished Patient with Karlajulius Clark MINUTE CLERK [employer] 07/31/2018 [facility] Work Phone: 1(420) 631-441306-03-2022 Evaluation note Includes: Assessments for all patient encounters Findings Encounter Date Bipolar disorder NOS BH Established Pita ent with Yin Feliz [facility] 11/03/2021 Bipolar schizoaffective disorder BH Esta [...] Medical Establish ed Patient with Karla Amber [facility] 05/08/2021 Diabetes Risk Test Score was four score 05/08/2021 Medical Established Patient with Karla Clark [facility] 05/08/2021 Routine adult history and ph ysical (18-64 yrs) without abnormal findings Medical Established Patient with Karla Clark MINUTE CLERK [employer]IC [employer]FF[employer] 05/08/2021 Z68.24 - Body mass index [BM I] 24.0-24.9, adult Medical Established Patient with Karla Clark [facility] 05/08/2021 Z68.24 - Body mass index [BM I] 24.0-24.9, adult Medical Established Patient with Karla Clark [facility] 06/17/2020 Overweight Medical Established Patient with Karla Clark [facility] 06/06/2020 Z68.25 - Body mass index [BM I] 25.0-25.9, adult Medical Established Patient with Karla Clark [employer] 06/06/2020 Antiasthmatics CPS Asthma Clinic-Ne w with Karlajulius Floresen [facility] 05/06/2020 Assessment of tobacco use CPS Asthma Cli yash-New with Karla Amber [facility] 05/06/2020 Body mass index CPS Asthma Clinic-Ne w with Karla Clark [facility] 05/06/2020 Chronic obstructive pulmonary disease CP S Asthma Clinic-New with Karlajulius Clark [facility] 05/06/2020 Overweight CPS Asthma Clinic-Ne w with Karlajulius Floresen [facility] 05/06/2020 Z11.4 - Encounter for screen ing for human immunodeficiency virus [HIV] CPS Asthma Clinic-New with Karla Clark [facility] 05/06/2020 Diabetes Risk Test Score was three score 03/31/2020 Medical Established Patient with Karla Clark [facility] 03/31/2020 Overweight Medical Established Patient with Karla Clark [facility] 03/31/2020 Z68.25 - Body mass index [BM I] 25.0-25.9, adult Medical Established Patient with Karla Clark [facility] 03/31/2020 Encounter for Immunization Nurse Visit with GaryNicolasa [facility] 03/14/2020 Body mass index Medical Established Patient with Karla Amber [facility] 02/26/2020 Overweight Medical Established Patient with Karla Amber [facility] 02/26/2020 Overweight Medical Established Patient with Karla Amber [facility] 07/23/2019 Z68.27 - Body mass index (BM I) 27.0-27.9, adult Medical Established Patient with Karla Amber [facility] 07/23/2019 Occasional asthma CPS- Asthma Clinic- F/U with Karla Clark [facility] 06/05/2019 Overweight CPS- Asthma Clinic- F/U with Karlajulius Clark [facility] 06/05/2019 Z68.27 - Body mass index (BM I) 27.0-27.9 adult CPS- Asthma Clinic- F/U with Karla Clark [employer] 06/05/2019 Occasional asthma CPS Med Review with Karlajulius Clark [facility] 04/23/2019 Overweight CPS Med Review with Karlajulius Clark [facility] 04/23/2019 Z68.27 - Body mass index (BM I) 27.0-27.9 adult CPS Med Review with Karlajulius Clark [facility] 04/23/2019 Acute pharyngitis Medical Established Patient with Brandy Serranoer [employer] 04/15/2019 Asthmatic bronchitis with ac [place] exacerbation Medical Established Patient with Brandy Serranoer [facility] 04/15/2019 Fagerstrom Score was two Medical Establi shed Patient with Brandy Kelley [facility] 04/15/2019 PHQ-9: total score was three 04/15/2019 [facility] Body mass index Medical Established Patient with Karla Clark [facility] 03/05/2019 Diabetes Risk Test Score was three score Medical Established Patient with Karla Clark [facility] 03/05/2019 Overweight Medical Established Patient with Karla Amber [facility] 03/05/2019 Z68.28 - Body mass index (BM I) 28.0-28.9, adult Medical Established Patient with Karlajulius Clark [facility] 12/22/2018 Assess routine adult history and physical (18 - 64 yrs) Medical Established Patient with Karlajulius Clark [facility] 11/06/2018 Overweight Medical Established Patient with Karla Amber [facility] 11/06/2018 Z68.28 - Body mass index (BM I) 28.0-28.9, adult Medical Established Patient with Karla Clark [facility] 11/06/2018 Assess dysphagia Medical Established Patient with Karla Amber [employer] 09/11/2018 Assess routine adult history and physical (18 - 64 yrs) Medical Established Patient with Karla Amber [employer] 09/11/2018 Assess primary insomnia with sleep apnea Medical Established Patient with Karlajulius Floresen [employer] 09/04/2018 Assess routine adult history and physical (18 - 64 yrs) Medical Established Patient with Karla Amber [employer] 09/04/2018 Overweight Medical Established Patient with Karla Amber CNP 09/04/2018 Z68.29 - Body mass index (BM I) 29.0-29.9, adult Medical Established Patient with Karla Clark [facility] 09/04/2018 Assess vaginal candidiasis Medical Estab lished Patient with Karla Clark MINUTE CLERK [employer]FF[employer] 07/31/2018 [facility] Work Phone: 1(750) 869-167806-03-2022 History general Narrative - Reported Includes: Medical History in patient's chart Description Last Updated Currently nursing 11/03/2021 Partners status unknown for sexually tra nsmitted infection 11/03/2021 11/03/2021 Not planning to have a baby in the next 12 months 11/03/2021 Heart Attack 03/2021 [facility] [place] 1 07/09/2020 A recent immunization for flu 05/06/2020 Patient gave verbal consent for teleheal th 08/31/2019 History of abnormal electrocardiogram History of asthma 07/31/2018 History of cardiovascular disorder 07/31 History of respiratory disorder 07/31/19 19 History of bipolar disorder NOS 07/31/19 19 History of depression 07/31/2018 History of psychiatric disorders 019 [facility] Work Phone: 1(406) 845-403805-13-2022 Note [id number]#[id number]:127[facility] 08-03-2021 Evaluation note* Diagnosis Breast lump on right side at 4 o'clock position Lump or mass in breast documented in this encounter [facility] Work Phone: 1(701) 452-122402-25-2022 Evaluation note Includes: Assessments for all patient encounters Findings Encounter Date Cough Medical Established Patient with Karla Clark [employer]UTE CL[employer] 07/28/2021 Intervention and counseling on cessation of tobacco use, 3-10 minutes Discussed medication and nicotine replacement for tobacco cessation Medical Established Patient with Karla Clark [employer]UTE CL[employer] 07/28/2021 Nicotine dependence Medical Established Patient with Karla Clark [facility] 07/28/2021 Z68.24 - Body mass index [BM I] 24.0-24.9, adult Medical Established Patient with Karla Clark [facility] 07/28/2021 Assess Colon screening Medical Establish ed Patient with Karla Clark CNP 05/08/2021 Diabetes Risk Test Score was four score 05/08/2021 Medical Established Patient with Karla Clark [facility] 05/08/2021 Routine adult history and ph ysical (18-64 yrs) without abnormal findings Medical Established Patient with Karla Clark [employer] 05/08/2021 Z68.24 - Body mass index [BM I] 24.0-24.9, adult Medical Established Patient with Karla Clark [employer] 05/08/2021 Z68.24 - Body mass index [BM I] 24.0-24.9, adult Medical Established Patient with Karla Amber [employer] 06/17/2020 Overweight Medical Established Patient with Karla Clark [facility] 06/06/2020 Z68.25 - Body mass index [BM I] 25.0-25.9, adult Medical Established Patient with Karla Amber [employer] 06/06/2020 Antiasthmatics CPS Asthma Clinic-Ne w with Karlajulius Clark [facility] 05/06/2020 Assessment of tobacco use CPS Asthma Cli yash-New with Karlajulius Clark [facility] 05/06/2020 Body mass index CPS Asthma Clinic-Ne w with Karlajulius Clark [facility] 05/06/2020 Chronic obstructive pulmonary disease CP S Asthma Clinic-New with Karlajulius Clark [facility] 05/06/2020 Overweight CPS Asthma Clinic-Ne w with Karla Amber [facility] 05/06/2020 Z11.4 - Encounter for screen ing for human immunodeficiency virus [HIV] CPS Asthma Clinic-New with Karla Amber [facility] 05/06/2020 Diabetes Risk Test Score was three score 03/31/2020 Medical Established Patient with Karla Floresen [facility] 03/31/2020 Overweight Medical Established Patient with Karla Amber [facility] 03/31/2020 Z68.25 - Body mass index [BM I] 25.0-25.9, adult Medical Established Patient with Karla Clark [facility] 03/31/2020 Encounter for Immunization Nurse Visit with GaryNicolasa [facility] 03/14/2020 Body mass index Medical Established Patient with Karla Amber [facility] 02/26/2020 Overweight Medical Established Patient with Karlajulius Clark [facility] 02/26/2020 Overweight Medical Established Patient with Karla Amber [facility] 07/23/2019 Z68.27 - Body mass index (BM I) 27.0-27.9, adult Medical Established Patient with Karlajulius Clark [employer]UTE [employer] 07/23/2019 Occasional asthma [facility]2019 Z68.27 - Body mass index (BM I) 27.0-27.9 adult CPS- Asthma Clinic- F/U with Karlajulius Clark [facility] 06/05/2019 Occasional asthma CPS Med Review with Karla Clark [facility] 04/23/2019 Overweight CPS Med Review with Karla Clark [facility] 04/23/2019 Z68.27 - Body mass index (BM I) 27.0-27.9 adult CPS Med Review with Karlajulius Clark [facility] 04/23/2019 Acute pharyngitis [facility] Asthmatic bronchitis with ac [place] exacerbation Medical Establ[facility] 04/15/2019 Fagerstrom Score was two Medical Establi shed [facility] 04/15/2019 PHQ-9: total score was three 04/15/2019 Medical Established Patient with Brandy [facility] 04/15/2019 Body mass index Medical Established Patient with Kalra Clark [facility] 03/05/2019 Diabetes Risk Test Score was three score Medical Established Patient with Karla Clark [facility] 03/05/2019 Overweight Medical Established Patient with Karla [facility] 03/05/2019 Z68.28 - Body mass index (BM I) 28.0-28.9, adult Medical Established Patient with Karla Clark [facility] 12/22/2018 Assess routine adult history and physical (18 - 64 yrs) Medical Established Patient with Karla [facility] 11/06/2018 Overweight Medical Established Patient with Karla [facility] 11/06/2018 Z68.28 - Body mass index (BM I) 28.0-28.9, adult [facility] Assess dysphagia [facility]2018 Assess routine adult history and physical (18 - 64 yrs) Medical Established Patient with Karla [facility] 09/11/2018 Assess primary insomnia with sleep apnea Medical Established Patient with Karla [facility] 09/04/2018 Assess routine adult history and physical (18 - 64 yrs) Medical Established Patient with Karla [facility] 09/04/2018 Overweight Medical Established Patient with Karla [facility] 09/04/2018 Z68.29 - Body mass index (BM I) 29.0-29.9, adult Medical Established Patient with Karla Clark [employer] 09/04/2018 Assess vaginal candidiasis Medical Estab lished Patient with Karla Clark MINUTE CLERK [employer] 07/31/2018 [facility] Work Phone: 1(785) 431-307010-01-2021 History general Narrative - Reported Includes: Medical History in patient's chart Description Last Updated Heart Attack 03/2021 [facility] [place] 1 07/09/2020 A recent immunization for flu 05/06/2020 Patient gave verbal consent for teleheal 08/31/2019 History of abnormal electrocardiogram History of asthma 07/31/2018 History of cardiovascular disorder 07/31 History of respiratory disorder 07/31/19 19 History of bipolar disorder NOS 07/31/19 19 History of depression 07/31/2018 History of psychiatric disorders 019 [facility] Work Phone: 1(888) 591-702912-04-2020 Reason for referral (narrative)* Date Encounter Description Provider Reason for Referral 05/06/20 [facility] Asthma Clinic-New Karla Clark MINUTE CLERK FOR BASIC TRAFFIC Re ferral To Mental Health Team [facility] Work Phone: 1(401) 960-962804-04-2019 Evaluation note Includes: Assessments for all patient encounters Findings Encounter Date Assess routine adult history and physical (18 - 64 yrs) Established Patient with Karla Clark CNP 09/04/2018 Overweight Established Patient with Karla Clark CNP 09/04/2018 Z68.29 - Body mass index (BM I) 29.0-29.9, adult Established Patient with Karla Clark [employer]UTE CLERK [employer] 09/04/2018 Assess vaginal candidiasis Established P atient with Karla Clark MINUTE CLERK [employer]FF[employer] 07/31/2018 [facility] Work Phone: discharge summary Author Reynaldo Kraft [facility] August 20, 2023 12:42pm Note Date/Time August 20, 2023 8:5 0am [facility] [address] [place], [place] [id number] Discharge Summary Signed Patient: Gail Almeida MR#: [id number] : 1955 Acct:[id number] Age/Sex: 67 / F Adm Date: 4 Loc: 1S Room: 0J3026-[address]: Joe Davis MD Copies to: [...] 2 times total 1 time here in [facility] and another time at a different hospital Past suicide attempts: Denies previous suicidal attempts Previous medications: Reports Seroquel, [place], Zyprexa, Cogentin Alcohol and Drug Use: Denies alcohol use. Denies street drugs. Smokes 3 to 4cigarettes a day Living: 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 She [...] Instructions: Important Contact Information You can call [facility] Inpatient Behavioral Health at [phone] any time day or night if you have emergent questions or question regarding discharge instructions. If at any time you are feeling an increase inyour psychiatric symptoms, call your physician or behavioral healthcare provider. If any time you have thoughts of harming yourself or others contact one of the following: Call (available 24/12) Crisis Text Line (available 24/12) text 4HOPE to [phone] [facility] Hope Line (available 8 a.m. Midnight) call [phone] ([phone]) Regular Diet No Activity Restrictions Instructions: Schizoaffective Disorder (DC), [facility] [place] Instructions Prescriptions: New lithium [...] mg PO DAILY fluticasone propionate 50 mcg/actuation Nordman,Suspension 1 spray INTRANASAL BID Rx Instructions: inhale [...] tablet 10 mg PO QHS Follow Up: [facility] [Outside] - 09/10/23 8:40 am (A case management rn will call you on Saturday08/21/23 between 8:00am and 12:00pm. Psychiatry: Saturday09/10/23 at 8:40am with Dr. Galicia. ) Karla Clark, RODNEY, CARDIO CLINICIAN-C [Referring] - (Contact your PCP with medical needs. ) Documented By: Reynaldo Kraft MD 08/20/23 0850 Signed By: <Electronically signed by Reynaldo Kraft MD> 08/20/23 1242 [facility] Work Phone: Evaluation + Plan note No data available for this section [facility] History of breast biopsy Other postprocedural status documented in this encounter [facility] Work Phone: evaluation note Includes: Assessments for all patient encounters Findings Encounter Date Assess Colon screening Medical Establish ed Patient with Karla Clark CNP 05/08/2021 Diabetes Risk Test Score was four score 05/08/2021 Medical Established Patient with Karla Clark MINUTE CLERK [employer]FF[employer] 05/08/2021 Routine adult history and ph ysical (18-64 yrs) without abnormal findings Medical Established Patient with Karla Clark MINUTE CLERK [employer] 05/08/2021 Z68.24 - Body mass index [BM I] 24.0-24.9, adult Medical Established Patient with Karla Clark [employer]UTE CL[employer] 05/08/2021 Z68.24 - Body mass index [BM I] 24.0-24.9, adult Medical Established Patient with Karla Amber [employer] 06/17/2020 Overweight Medical Established Patient with Karla Clark [employer] 06/06/2020 Z68.25 - Body mass index [BM I] 25.0-25.9, adult Medical Established Patient with Karla Amber [employer]UTE CL[employer] 06/06/2020 Antiasthmatics CPS Asthma Clinic-Ne w with Karlajulius Clark [facility] 05/06/2020 Assessment of tobacco use CPS Asthma Cli yash-New with Karlajulius Clark [employer] 05/06/2020 Body mass index CPS Asthma Clinic-Ne w with Karlajulius Clark [facility] 05/06/2020 Chronic obstructive pulmonary disease CP S Asthma Clinic-New with Karla Amber [facility] 05/06/2020 Overweight CPS Asthma Clinic-Ne w with Krala Amber [facility] 05/06/2020 Z11.4 - Encounter for screen ing for human immunodeficiency virus [HIV] CPS Asthma Clinic-New with Karla Amber [facility] 05/06/2020 Diabetes Risk Test Score was three score 03/31/2020 Medical Established Patient with Karla Floresen [facility] 03/31/2020 Overweight Medical Established Patient with Karla Amber [facility] 03/31/2020 Z68.25 - Body mass index [BM I] 25.0-25.9, adult Medical Established Patient with Karla Floresen [facility] 03/31/2020 Encounter for Immunization Nurse Visit with GaryNicolasa [facility] 03/14/2020 Body mass index Medical Established Patient with Karla Amber [employer] 02/26/2020 Overweight Medical Established Patient with Karla Amber [employer] CLERK [employer] 02/26/2020 Overweight Medical Established Patient with Karla Amber [employer] CL[employer] 07/23/2019 Z68.27 - Body mass index (BM I) 27.0-27.9, adult Medical Established Patient with Karlajulius Clark MINUTE CLERK [employer]FFIC 07/23/2019 Occasional asthma CPS- Asthma Clinic- F/U with Karla Clark [facility] 06/05/2019 Overweight CPS- [facility]2019 Z68.27 - Body mass index (BM I) 27.0-27.9 adult CPS- Asthma Clinic- F/U with Karlajulius Clark [facility] 06/05/2019 Occasional asthma CPS Med Review with Karla Clark [facility] 04/23/2019 Overweight CPS Med Review with Karla Clark [facility] 04/23/2019 Z68.27 - Body mass index (BM I) 27.0-27.9 adult CPS Med Review with Karlajulius Clark [facility] 04/23/2019 Acute pharyngitis Medical Establ[facility] Asthmatic bronchitis with ac [place] exacerbation Medical Established Patient with Brandy Kelley [facility] 04/15/2019 Fagerstrom Score was two Medical Establi shed [facility] 04/15/2019 PHQ-9: total score was three 04/15/2019 Medical Established Patient with Brandy [facility] 04/15/2019 Body mass index Medical Established Patient with Karla Clark [facility] 03/05/2019 Diabetes Risk Test Score was three score Medical Established Patient with Karla [facility] 03/05/2019 Overweight Medical Established Patient with Karla [facility] 03/05/2019 Z68.28 - Body mass index (BM I) 28.0-28.9, adult Medical Established Patient with Karla Clark [facility] 12/22/2018 Assess routine adult history and physical (18 - 64 yrs) Medical Established Patient with Karla [facility] 11/06/2018 Overweight Medical Established Patient with Karla [facility] 11/06/2018 Z68.28 - Body mass index (BM I) 28.0-28.9, adult Medical Established Patient with Karla [facility] 11/06/2018 Assess dysphagia Medical [facility] Assess routine adult history and physical (18 - 64 yrs) Medical Established Patient with Karla [facility] 09/11/2018 Assess primary insomnia with sleep apnea Medical Established Patient with Karla [facility] 09/04/2018 Assess routine adult history and physical (18 - 64 yrs) Medical Established Patient with Karla [facility] 09/04/2018 Overweight Medical Established Patient with Karla [facility] 09/04/2018 Z68.29 - Body mass index (BM I) 29.0-29.9, adult Medical Established Patient with Karla Clark CNP 09/04/2018 Assess vaginal candidiasis Medical Estab lished Patient with Karla Clark CNP 07/31/2018 [facility] Work Phone: Evaluation note* Diagnosis Pre-procedure lab exam Pre-procedural laboratory examination documented in this encounter [employer] Work Phone: evaluation note Includes: Assessments for all patient encounters Findings Encounter Date Assess dysphagia Established Patient with Karlajulius Clark CNP 09/11/2018 Assess routine adult history and physical (18 - 64 yrs) Established Patient with Karla Amber [facility] 09/11/2018 Assess primary insomnia with sleep apnea Established Patient with Karlajulius Clark CNP 09/04/2018 Assess routine adult history and physical (18 - 64 yrs) Established Patient with Karla Amber [facility] 09/04/2018 Overweight Established Patient with Karlajulius Clark CNP 09/04/2018 Z68.29 - Body mass index (BM I) 29.0-29.9, adult Established Patient with Karla Clark CNP 09/04/2018 Assess vaginal candidiasis Established P atient with Karla Clark CNP 07/31/2018 [facility] Work Phone: Evaluation note Includes: Assessments [...] dependence Medical Established Patient with Karla Clark MINUTE CLERK [employer]FF[employer] 07/28/2021 Z68.24 - Body mass index [BM I] 24.0-24.9, adult Medical Established Patient with Karla Clark MINUTE CLERK [employer] 07/28/2021 Assess Colon screening Medical Establish ed Patient with Karla Clark MINUTE CLERK [employer]FF[employer] 05/08/2021 Diabetes Risk Test Score was four score 05/08/2021 Medical Established Patient with Karla Clark CNP 05/08/2021 Routine adult history and ph ysical (18-64 yrs) without abnormal findings Medical Established Patient with Karla Clark MINUTE CLERK [employer]FFIC 05/08/2021 Z68.24 - Body mass index [BM I] 24.0-24.9, adult Medical Established Patient with Karla Clark MINUTE CLERK [employer]FF[employer] 05/08/2021 Z68.24 - Body mass index [BM I] 24.0-24.9, adult Medical Established Patient with Karla Amber [employer] CL[employer] 06/17/2020 Overweight Medical Established Patient with Karla Clark MINUTE CLERK [employer] 06/06/2020 Z68.25 - Body mass index [BM I] 25.0-25.9, adult Medical Established Patient with Karla Floresen MINUTE CLERK [employer] 06/06/2020 Antiasthmatics CPS Asthma Clinic-Ne w with Karla Amber [facility] 05/06/2020 Assessment of tobacco use CPS Asthma Cli yash-New with Karla Amber [facility] 05/06/2020 Body mass index CPS Asthma Clinic-Ne w with Karlajulius Clark [facility] 05/06/2020 Chronic obstructive pulmonary disease CP S Asthma Clinic-New with Karla Amber [facility] 05/06/2020 Overweight CPS Asthma Clinic-Ne w with Karla Amber [facility] 05/06/2020 Z11.4 - Encounter for screen ing for human immunodeficiency virus [HIV] CPS Asthma Clinic-New with Karla Floresen [facility] 05/06/2020 Diabetes Risk Test Score was three score 03/31/2020 Medical Established Patient with Karla Floresen [facility] 03/31/2020 Overweight Medical Established Patient with Karla Floresen [facility] 03/31/2020 Z68.25 - Body mass index [BM I] 25.0-25.9, adult Medical Established Patient with Karla Clark [facility] 03/31/2020 Encounter for Immunization Nurse Visit with GaryNicolasa [facility] 03/14/2020 Body mass index Medical Established Patient with Karla Amber [employer] CLERK [employer] 02/26/2020 Overweight Medical Established Patient with Karla Amber [employer] CLERK [employer]FF[employer] 02/26/2020 Overweight Medical Established Patient with Karla Amber MINUTE CLERK FOR BASIC TRAFFIC 07/23/2019 Z68.27 - Body mass index (BM I) 27.0-27.9, adult Medical Established Patient with Karla Amber MINUTE CLERK FOR BASIC TRAFFIC 07/23/2019 Occasional asthma CPS- Asthma Clinic- F/U with Karlajulius Clark MINUTE CLERK FOR BASIC TRAFFIC 06/05/2019 Overweight CPS- [facility]- F/U with Karla Clark MINUTE CLERK [employer] BASIC TRAFFIC 06/05/2019 Z68.27 - Body mass index (BM I) 27.0-27.9 adult CPS- [facility] Clinic- F/U with Karla Amber [facility] 06/05/2019 Occasional asthma CPS Med Review with Karlajulius Clark [facility] 04/23/2019 Overweight CPS Med Review with Karlajulius Clark [facility] 04/23/2019 Z68.27 - Body mass index (BM I) 27.0-27.9 adult CPS Med Review with Karlajulius Floresen [facility] 04/23/2019 Acute pharyngitis Medical Established Patient with Brandy Warren MINUTE CLERK [employer] BASIC [employer]FFIC 04/15/2019 Asthmatic bronchitis with ac [place] exacerbation Medical Established Patient with Brandy Warren [facility] 04/15/2019 Fagerstrom Score was two Medical Establi shed Patient with Brandy Serranoer [facility] 04/15/2019 PHQ-9: total score was three 04/15/2019 [facility] Body mass index Medical Established Patient with Karla Clark [facility] 03/05/2019 Diabetes Risk Test Score was three score Medical Established Patient with Karlajulius Clark [facility] 03/05/2019 Overweight Medical Established Patient with Karla Amber [facility] 03/05/2019 Z68.28 - Body mass index (BM I) 28.0-28.9, adult Medical Established Patient with Karlajulius Clark [facility] 12/22/2018 Assess routine adult history and physical (18 - 64 yrs) Medical Established Patient with Karla Amber [facility] 11/06/2018 Overweight Medical Established Patient with Karla Amber [facility] 11/06/2018 Z68.28 - Body mass index (BM I) 28.0-28.9, adult Medical Established Patient with Karla Amber [facility] 11/06/2018 Assess dysphagia Medical Established Patient with Karla Amber [facility] 09/11/2018 Assess routine adult history and physical (18 - 64 yrs) Medical Established Patient with Karla Amber [facility] 09/11/2018 Assess primary insomnia with sleep apnea Medical Established Patient with Karla Amber [facility] 09/04/2018 Assess routine adult history and physical (18 - 64 yrs) Medical Established Patient with Karla Amber MINUTE CLERK [employer] 09/04/2018 Overweight Medical Established Patient with Karla Amber [facility] 09/04/2018 Z68.29 - Body mass index (BM I) 29.0-29.9, adult Medical Established Patient with Karla Amber [employer] CLERK [employer] 09/04/2018 Assess vaginal candidiasis Medical Estab lished Patient with Karla Amber MINUTE CLERK FOR BASIC TRAFFIC 07/31/2018 [facility] Work Phone: Evaluation note* Diagnosis Pre-operative clearance Preoperative examination, unspecified Abnormal EKG Nonspecific abnormal electrocardiogram (ECG) (EKG) History of [place] (myocardial infarction) Old myocardial infarction documented in this encounter [facility] Work Phone: evaluation note Includes: Assessments for all patient encounters Findings Encounter Date [H92.02 - Otalgia, left ear] earache Med ical Established Patient with Karla Amber MINUTE CLERK FOR BASIC TRAFFIC 06/18/2022 Last Documented On 3 12:11PM ; [facility] [M79.604 - Pain in right leg ] pain in right leg Medical Established Patient with Karlajulius Clark MINUTE CLERK [employer] BASIC TRAFFIC 06/18/2022 Last Documented On 3 12:11PM ; [facility] [Z68.24 - Body mass index [B [place]] 24.0-24.9, adult] assessment of body mass index Medical Established Patient with Karla Clark MINUTE CLERK [employer] BAS[employer]FFIC 06/18/2022 Last Documented On 3 12:11PM ; [facility] Assessment of tobacco use Medical Establ ished Patient with Karla Amber MINUTE CLERK [employer] BASIC [employer]FFIC 06/18/2022 Last Documented On 3 12:11PM ; [facility] Diabetes Risk Test Score was four score 06/18/2022 Medical Established Patient with Karla Clark MINUTE CLERK [employer] BAS[employer] TRAFFIC 06/18/2022 Last Documented On 3 12:11PM ; [facility] Schizoaffective disorder Established Patient with Yin Feliz [facility] 03/20/2022 Last Documented On 2 12:13AM ; [facility] No cough Medical Established Patient with Karlajulius Clark MINUTE CLERK [employer]FFIC 12/20/2021 Last Documented On 2 3:12PM ; [facility] Visit for: screening for hum an immunodeficiency virus Medical Established Patient with Karla Amber MINUTE CLERK [employer] BASIC TRAFFIC 12/20/2021 Last Documented On 2 3:12PM ; [facility] Z68.24 - Body mass index [BM I] 24.0-24.9, adult Medical Established Patient with Karla Amber MINUTE CLERK [employer]FF[employer] 12/20/2021 Last Documented On 2 3:12PM ; [facility] Bipolar disorder NOS BH Established Patient with Yin Feliz [facility] 11/03/2021 Last Documented On 2 7:00PM ; [facility] Bipolar schizoaffective disorder BH Esta blished Patient with Yin Feliz [facility] 11/03/2021 Last Documented On 2 7:00PM ; [facility] PLAN Medical Established Patient with Don Pino MD 11/03/2021 Last Documented On 2 10:40AM ; [facility] Abnormal electrocardiogram Medical Estab lished Patient with Don Pino MD 11/03/2021 Last Documented On 2 10:40AM ; [facility] Z68.24 - Body mass index [BM I] 24.0-24.9, adult Medical Established Patient with Don Pino MD 11/03/2021 Last Documented On 2 10:40AM ; [facility] Cough Medical Established Patient with Karla Amber MINUTE CLERK FOR BASIC TRAFFIC 07/28/2021 Last Documented On 2 2:01PM ; [facility] Intervention and counseling on cessation of tobacco use, 3-10 minutes Discussed medication and nicotine replacement for tobacco cessation Medical Established Patient with Karla Amber MINUTE CLERK [employer] BASIC [employer]FFIC 07/28/2021 Last Documented On 2 2:01PM ; [facility] Nicotine dependence Medical Established Patient with Karla Amber MINUTE CLERK FOR BASIC TRAFFIC 07/28/2021 Last Documented On 2 2:01PM ; [facility] Z68.24 - Body mass index [BM I] 24.0-24.9, adult Medical Established Patient with Karla Amber MINUTE CLERK FOR BASIC TRAFFIC 07/28/2021 Last Documented On 2 2:01PM ; [facility] Assess Colon screening Medical Established Patie nt with Karla Amber MINUTE CLERK FOR BASIC TRAFFIC 05/08/2021 Last Documented On 1 10:59AM ; [facility] Diabetes Risk Test Score was four score 05/08/2021 Medical Established Patient with Karla Amber MINUTE CLERK FOR BASIC TRAFFIC 05/08/2021 Last Documented On 1 10:59AM ; [facility] Routine adult history and ph ysical (18-64 yrs) without abnormal findings Medical Established Patient with Karla Amber MINUTE CLERK FOR BASIC TRAFFIC 05/08/2021 Last Documented On 1 10:59AM ; [facility] Z68.24 - Body mass index [BM I] 24.0-24.9, adult Medical Established Patient with Karla Amber MINUTE CLERK FOR BASIC TRAFFIC 05/08/2021 Last Documented On 1 10:59AM ; [facility] Z68.24 - Body mass index [BM I] 24.0-24.9, adult Medical Established Patient with Karla Amber MINUTE CLERK FOR BASIC TRAFFIC 06/17/2020 Last Documented On 1 10:30AM ; [facility] Overweight Medical Established Patient with Karla Amber MINUTE CLERK FOR BASIC TRAFFIC 06/06/2020 Last Documented On 1 2:06PM ; [facility] Z68.25 - Body mass index [BM I] 25.0-25.9, adult Medical Established Patient with Karla Amber MINUTE CLERK FOR BASIC TRAFFIC 06/06/2020 Last Documented On 1 2:06PM ; [facility] Antiasthmatics [facility] Asthma Clinic-New with Karla Amber MINUTE CLERK FOR BASIC TRAFFIC 05/06/2020 Last Documented On 0 7:27PM ; [facility] Assessment of tobacco use CPS Asthma Clinic-New with Karla Amber MINUTE CLERK FOR BASIC TRAFFIC 05/06/2020 Last Documented On 0 7:27PM ; [facility] Body mass index CPS Asthma Clinic-New with Karla Amber MINUTE CLERK FOR BASIC TRAFFIC 05/06/2020 Last Documented On 0 7:27PM ; [facility] Chronic obstructive pulmonary disease CP S [facility] Clinic-New with Karla Amber MINUTE CLERK FOR BASIC TRAFFIC 05/06/2020 Last Documented On 0 7:27PM ; [facility] Overweight CPS Ast[facility] Clinic-New with Karla Amber MINUTE CLERK FOR BASIC TRAFFIC 05/06/2020 Last Documented On 0 7:27PM ; [facility] Z11.4 - Encounter for screen ing for human immunodeficiency virus [HIV] CPS Ast[facility] Clinic-New with Karla Amber MINUTE CLERK FOR BASIC TRAFFIC 05/06/2020 Last Documented On 0 7:27PM ; [facility] Diabetes Risk Test Score was three score 03/31/2020 Medical Established Patient with Karla Clark MINUTE CLERK FOR BASIC TRAFFIC 03/31/2020 Last Documented On 0 3:22PM ; [facility] Overweight Medical Established Patient with Karla Clark MINUTE CLERK FOR BASIC TRAFFIC 03/31/2020 Last Documented On 0 3:22PM ; [facility] Z68.25 - Body mass index [BM I] 25.0-25.9, adult Medical Established Patient with Karla Clark MINUTE CLERK FOR BASIC TRAFFIC 03/31/2020 Last Documented On 0 3:22PM ; [facility] Encounter for Immunization Nurse Visit with Gary Clark MINUTE CLERK FOR BASIC TRAFFIC 03/14/2020 Last Documented On 0 5:11PM ; [facility] Body mass index Medical Established Patient with Karla Clark MINUTE CLERK FOR BASIC TRAFFIC 02/26/2020 Last Documented On 0 1:18PM ; [facility] Overweight Medical Established Patient with Karla Clark MINUTE CLERK FOR BASIC TRAFFIC 02/26/2020 Last Documented On 0 1:18PM ; [facility] Overweight Medical Established Patient with Karla Clark MINUTE CLERK FOR BASIC TRAFFIC 07/23/2019 Last Documented On 0 2:33PM ; [facility] Z68.27 - Body mass index (BM I) 27.0-27.9, adult Medical Established Patient with Karla Clark MINUTE CLERK FOR BASIC TRAFFIC 07/23/2019 Last Documented On 0 2:33PM ; [facility] Occasional asthma CPS- Asthma Clinic- F/U with A french Clark MINUTE CLERK FOR BASIC TRAFFIC 06/05/2019 Last Documented On 0 7:04PM ; [facility] Overweight CPS- [facility] Clinic- F/U with Alta Clark MINUTE CLERK FOR BASIC TRAFFIC 06/05/2019 Last Documented On 0 7:04PM ; [facility] Z68.27 - Body mass index (BM I) 27.0-27.9 adult CPS- [facility] Clinic- F/U with Karla Clark MINUTE CLERK FOR BASIC TRAFFIC 06/05/2019 Last Documented On 0 7:04PM ; [facility] Occasional asthma CPS Med Review with Karlajulius dinh MINUTE CLERK FOR BASIC TRAFFIC 04/23/2019 Last Documented On 9 4:01PM ; [facility] Overweight CPS Med Review with Karlajulius Floresen MINUTE CLERK FOR BASIC TRAFFIC 04/23/2019 Last Documented On 9 4:01PM ; [facility] Z68.27 - Body mass index (BM I) 27.0-27.9 adult CPS Med Review with Karlajulius Floresen MINUTE CLERK FOR BASIC TRAFFIC 04/23/2019 Last Documented On 9 4:01PM ; [facility] Acute pharyngitis Medical Established Patient wi th Brandy Kelley MINUTE CLERK FOR BASIC TRAFFIC 04/15/2019 Last Documented On 9 12:31PM ; [facility] Asthmatic bronchitis with ac [place] exacerbation Medical Established Patient with Brandy Warren MINUTE CLERK FOR BASIC TRAFFIC 04/15/2019 Last Documented On 9 12:31PM ; [facility] Fagerstrom Score was two Medical Established Pat ient with Brandy Warren MINUTE CLERK FOR BASIC TRAFFIC 04/15/2019 Last Documented On 9 12:31PM ; [facility] PHQ-9: total score was three 04/15/2019 Medical Established Patient with Brandy Warren MINUTE CLERK FOR BASIC TRAFFIC 04/15/2019 Last Documented On 9 12:31PM ; [facility] Body mass index Medical Established Patient with Karlajulius Floresen MINUTE CLERK FOR BASIC TRAFFIC 03/05/2019 Last Documented On 9 10:27AM ; [facility] Diabetes Risk Test Score was three score Medical Established Patient with Karla Amber MINUTE CLERK FOR BASIC TRAFFIC 03/05/2019 Last Documented On 9 10:27AM ; [facility] Overweight Medical Established Patient with Karla Amber MINUTE CLERK FOR BASIC TRAFFIC 03/05/2019 Last Documented On 9 10:27AM ; [facility] Z68.28 - Body mass index (BM I) 28.0-28.9, adult Medical Established Patient with Karla Amber MINUTE CLERK FOR BASIC TRAFFIC 12/22/2018 Last Documented On 9 10:32AM ; [facility] Assess routine adult history and physical (18 - 64 yrs) Medical Established Patient with Karla Amber MINUTE CLERK FOR BASIC TRAFFIC 11/06/2018 Last Documented On 9 2:26PM ; [facility] Overweight Medical Established Patient with Karla Amber MINUTE CLERK FOR BASIC TRAFFIC 11/06/2018 Last Documented On 9 2:26PM ; [facility] Z68.28 - Body mass index (BM I) 28.0-28.9, adult Medical Established Patient with Karla Amber MINUTE CLERK FOR BASIC TRAFFIC 11/06/2018 Last Documented On 9 2:26PM ; [facility] Assess dysphagia Medical Established Patient wit h Karla Amber MINUTE CLERK FOR BASIC TRAFFIC 09/11/2018 Last Documented On 9 10:53AM ; [facility] Assess routine adult history and physical (18 - 64 yrs) Medical Established Patient with Karla Amber MINUTE CLERK FOR BASIC TRAFFIC 09/11/2018 Last Documented On 9 10:53AM ; [facility] Assess primary insomnia with sleep apnea Medical Established Patient with Karla Amber MINUTE CLERK FOR BASIC TRAFFIC 09/04/2018 Last Documented On 9 2:23PM ; [facility] Assess routine adult history and physical (18 - 64 yrs) Medical Established Patient with Karla Amber MINUTE CLERK FOR BASIC TRAFFIC 09/04/2018 Last Documented On 9 2:23PM ; [facility] Overweight Medical Established Patient with Karla Amber MINUTE CLERK FOR BASIC TRAFFIC 09/04/2018 Last Documented On 9 2:23PM ; [facility] Z68.29 - Body mass index (BM I) 29.0-29.9, adult Medical Established Patient with Karla Amber MINUTE CLERK FOR BASIC TRAFFIC 09/04/2018 Last Documented On 9 2:23PM ; [facility] Assess vaginal candidiasis Medical Estab lished Patient with Karla Amber MINUTE CLERK FOR BASIC TRAFFIC 07/31/2018 Last Documented On 9 2:12PM ; [facility] Work Phone: Evaluation note* Diagnosis Cutaneous candidiasis Candidiasis of skin and nails Screening for malignant neoplasm of cervix Screening for malignant neoplasm of the cervix documented in this encounter [facility] Work Phone: evaluation note Includes: Assessments for all patient encounters Findings Encounter Date [M25.569 - Pain in unspecifi ed knee] arthralgia of knee / patella / tibia / fibula Medical Established Patient with Karlajulius Clark MINUTE CLERK FOR BASIC TRAFFIC 08/27/2022 Last Documented On 3 8:56AM ; [facility] [Z68.24 - Body mass index [B [place]] 24.0-24.9, adult] assessment of body mass index Medical Established Patient with Karla Clark MINUTE CLERK FOR BASIC TRAFFIC 08/27/2022 Last Documented On 3 8:56AM ; [facility] Intervention and counseling on cessation of tobacco use, 3-10 minutes Discussed medication and nicotine replacement for tobacco cessation Medical Established Patient with Karla Clark MINUTE CLERK FOR BASIC TRAFFIC 08/27/2022 Last Documented On 3 8:56AM ; [facility] Nicotine dependence Medical Established Patient with Karla Clark MINUTE CLERK FOR BASIC TRAFFIC 08/27/2022 Last Documented On 3 8:56AM ; [facility] Visit for routine adult H&P without abnormal findings Medical Established Patient with Karla Clark MINUTE CLERK FOR BASIC TRAFFIC 08/27/2022 Last Documented On 3 8:56AM ; [facility] [H92.02 - Otalgia, left ear] earache Med ical Established Patient with Karla Clark MINUTE CLERK FOR BASIC TRAFFIC 06/18/2022 Last Documented On 3 12:11PM ; [facility] [M79.604 - Pain in right leg ] pain in right leg Medical Established Patient with Karla Clark MINUTE CLERK FOR BASIC TRAFFIC 06/18/2022 Last Documented On 3 12:11PM ; [facility] [Z68.24 - Body mass index [B [place]] 24.0-24.9, adult] assessment of body mass index Medical Established Patient with Karla Clark MINUTE CLERK FOR BASIC TRAFFIC 06/18/2022 Last Documented On 3 12:11PM ; [facility] Assessment of tobacco use Medical Establ ished Patient with Karla Clark MINUTE CLERK FOR BASIC TRAFFIC 06/18/2022 Last Documented On 3 12:11PM ; [facility] Diabetes Risk Test Score was four score 06/18/2022 Medical Established Patient with Karla Clark MINUTE CLERK FOR BASIC TRAFFIC 06/18/2022 Last Documented On 3 12:11PM ; [facility] Schizoaffective disorder Established Patient with Yin Feliz [facility] 03/20/2022 Last Documented On 2 12:13AM ; [facility] No cough Medical Established Patient with Karla Clark MINUTE CLERK FOR BASIC TRAFFIC 12/20/2021 Last Documented On 2 3:12PM ; [facility] Visit for: screening for hum an immunodeficiency virus Medical Established Patient with Karlajulius Clark MINUTE CLERK FOR BASIC TRAFFIC 12/20/2021 Last Documented On 2 3:12PM ; [facility] Z68.24 - Body mass index [BM I] 24.0-24.9, adult Medical Established Patient with Karla Clark MINUTE CLERK FOR BASIC TRAFFIC 12/20/2021 Last Documented On 2 3:12PM ; [facility] Bipolar disorder NOS BH Established Patient with Yin Feliz [facility]-S 11/03/2021 Last Documented On 2 7:00PM ; [facility] Bipolar schizoaffective disorder BH Esta blished Patient with Yin Feliz LPCC-S 11/03/2021 Last Documented On 2 7:00PM ; [facility] PLAN Medical Established Patient with Don Pino MD 11/03/2021 Last Documented On 2 10:40AM ; [facility] Abnormal electrocardiogram Medical Estab lished Patient with Don Pino MD 11/03/2021 Last Documented On 2 10:40AM ; [facility] Z68.24 - Body mass index [BM I] 24.0-24.9, adult Medical Established Patient with Don Pino MD 11/03/2021 Last Documented On 2 10:40AM ; [facility] Cough Medical Established Patient with Karla Clark MINUTE CLERK FOR BASIC TRAFFIC 07/28/2021 Last Documented On 2 2:01PM ; [facility] Intervention and counseling on cessation of tobacco use, 3-10 minutes Discussed medication and nicotine replacement for tobacco cessation Medical Established Patient with Karla Clark MINUTE CLERK FOR BASIC TRAFFIC 07/28/2021 Last Documented On 2 2:01PM ; [facility] Nicotine dependence Medical Established Patient with Karlajulius Clark MINUTE CLERK FOR BASIC TRAFFIC 07/28/2021 Last Documented On 2 2:01PM ; [facility] Z68.24 - Body mass index [BM I] 24.0-24.9, adult Medical Established Patient with Karla Amber MINUTE CLERK FOR BASIC TRAFFIC 07/28/2021 Last Documented On 2 2:01PM ; [facility] Assess Colon screening Medical Established Patie nt with Karla Amber MINUTE CLERK FOR BASIC TRAFFIC 05/08/2021 Last Documented On 1 10:59AM ; [facility] Diabetes Risk Test Score was four score 05/08/2021 Medical Established Patient with Karla Amber MINUTE CLERK FOR BASIC TRAFFIC 05/08/2021 Last Documented On 1 10:59AM ; [facility] Routine adult history and ph ysical (18-64 yrs) without abnormal findings Medical Established Patient with Karla Amber MINUTE CLERK FOR BASIC TRAFFIC 05/08/2021 Last Documented On 1 10:59AM ; [facility] Z68.24 - Body mass index [BM I] 24.0-24.9, adult Medical Established Patient with Karla Amber MINUTE CLERK FOR BASIC TRAFFIC 05/08/2021 Last Documented On 1 10:59AM ; [facility] Z68.24 - Body mass index [BM I] 24.0-24.9, adult Medical Established Patient with Karla Amber MINUTE CLERK FOR BASIC TRAFFIC 06/17/2020 Last Documented On 1 10:30AM ; [facility] Overweight Medical Established Patient with Karla Amber MINUTE CLERK FOR BASIC TRAFFIC 06/06/2020 Last Documented On 1 2:06PM ; [facility] Z68.25 - Body mass index [BM I] 25.0-25.9, adult Medical Established Patient with Karla Amber MINUTE CLERK FOR BASIC TRAFFIC 06/06/2020 Last Documented On 1 2:06PM ; [facility] Antiasthmatics [facility] Asthma Clinic-New with Kalra Amber MINUTE CLERK FOR BASIC TRAFFIC 05/06/2020 Last Documented On 0 7:27PM ; [facility] Assessment of tobacco use [facility] Asthma Clinic-New with Karla Amber MINUTE CLERK FOR BASIC TRAFFIC 05/06/2020 Last Documented On 0 7:27PM ; [facility] Body mass index [facility] Asthma Clinic-New with Karla Amber MINUTE CLERK FOR BASIC TRAFFIC 05/06/2020 Last Documented On 0 7:27PM ; [facility] Chronic obstructive pulmonary disease CP S [facility] Clinic-New with Karla Amber MINUTE CLERK FOR BASIC TRAFFIC 05/06/2020 Last Documented On 0 7:27PM ; [facility] Overweight CPS [facility] Clinic-New with Karla Floresen MINUTE CLERK FOR BASIC TRAFFIC 05/06/2020 Last Documented On 0 7:27PM ; [facility] Z11.4 - Encounter for screen ing for human immunodeficiency virus [HIV] CPS [facility]-New with Karlajulius Floresen MINUTE CLERK FOR BASIC TRAFFIC 05/06/2020 Last Documented On 0 7:27PM ; [facility] Diabetes Risk Test Score was three score 03/31/2020 Medical Established Patient with Karla Amber MINUTE CLERK FOR BASIC TRAFFIC 03/31/2020 Last Documented On 0 3:22PM ; [facility] Overweight Medical Established Patient with Karlajulius Floresen MINUTE CLERK FOR BASIC TRAFFIC 03/31/2020 Last Documented On 0 3:22PM ; [facility] Z68.25 - Body mass index [BM I] 25.0-25.9, adult Medical Established Patient with Karla Floresen MINUTE CLERK FOR BASIC TRAFFIC 03/31/2020 Last Documented On 0 3:22PM ; [facility] Encounter for Immunization Nurse Visit with Gary Clark MINUTE CLERK FOR BASIC TRAFFIC 03/14/2020 Last Documented On 0 5:11PM ; [facility] Body mass index Medical Established Patient with Karla Floresen MINUTE CLERK FOR BASIC TRAFFIC 02/26/2020 Last Documented On 0 1:18PM ; [facility] Overweight Medical Established Patient with Karlajulius Floresen MINUTE CLERK FOR BASIC TRAFFIC 02/26/2020 Last Documented On 0 1:18PM ; [facility] Overweight Medical Established Patient with Karla Floresen MINUTE CLERK FOR BASIC TRAFFIC 07/23/2019 Last Documented On 0 2:33PM ; [facility] Z68.27 - Body mass index (BM I) 27.0-27.9, adult Medical Established Patient with Karlajulius Floresen MINUTE CLERK FOR BASIC TRAFFIC 07/23/2019 Last Documented On 0 2:33PM ; [facility] Occasional asthma CPS- Asthma Clinic- F/U with A french Clark MINUTE CLERK FOR BASIC TRAFFIC 06/05/2019 Last Documented On 0 7:04PM ; [facility] Overweight CPS- [facility] Clinic- F/U with Aim julius Floresen MINUTE CLERK FOR BASIC TRAFFIC 06/05/2019 Last Documented On 0 7:04PM ; [facility] Z68.27 - Body mass index (BM I) 27.0-27.9 adult CPS- [facility] Clinic- F/U with Karla Clark MINUTE CLERK FOR BASIC TRAFFIC 06/05/2019 Last Documented On 0 7:04PM ; [facility] Occasional asthma CPS Med Review with Karla dinh MINUTE CLERK FOR BASIC TRAFFIC 04/23/2019 Last Documented On 9 4:01PM ; [facility] Overweight CPS Med Review with Karla Clark [facility] 04/23/2019 Last Documented On 9 4:01PM ; [facility] Z68.27 - Body mass index (BM I) 27.0-27.9 adult CPS Med Review with Karla Clark [facility] 04/23/2019 Last Documented On 9 4:01PM ; [facility] Acute pharyngitis Medical Established Patient wi th Brandy Kelley [facility] 04/15/2019 Last Documented On 9 12:31PM ; [facility] Asthmatic bronchitis with ac [place] exacerbation Medical Established Patient with Brandy Warren [facility] 04/15/2019 Last Documented On 9 12:31PM ; [facility] Fagerstrom Score was two Medical Established Pat ient with Brandy Warren [facility] 04/15/2019 Last Documented On 9 12:31PM ; [facility] PHQ-9: total score was three 04/15/2019 Medical Established Patient with Brandy Warren [employer]UTE CLERK [employer] 04/15/2019 Last Documented On 9 12:31PM ; [facility] Body mass index Medical Established Patient with Karla Clark MINUTE CLERK [employer] BASIC [employer]FFIC 03/05/2019 Last Documented On 9 10:27AM ; [facility] Diabetes Risk Test Score was three score Medical Established Patient with Karla Clark MINUTE CLERK [employer]FFIC 03/05/2019 Last Documented On 9 10:27AM ; [facility] Overweight Medical Established Patient with Karla Clark MINUTE CLERK [employer] BASIC [employer]FFIC 03/05/2019 Last Documented On 9 10:27AM ; [facility] Z68.28 - Body mass index (BM I) 28.0-28.9, adult Medical Established Patient with Karla Amber MINUTE CLERK [employer] BASIC TRAFFIC 12/22/2018 Last Documented On 9 10:32AM ; [facility] Assess routine adult history and physical (18 - 64 yrs) Medical Established Patient with Karla Amber MINUTE CLERK [employer] BASIC TRAFFIC 11/06/2018 Last Documented On 9 2:26PM ; [facility] Overweight Medical Established Patient with Karla Amber MINUTE CLERK FOR BASIC TRAFFIC 11/06/2018 Last Documented On 9 2:26PM ; [facility] Z68.28 - Body mass index (BM I) 28.0-28.9, adult Medical Established Patient with Karla Amber MINUTE CLERK FOR BASIC TRAFFIC 11/06/2018 Last Documented On 9 2:26PM ; [facility] Assess dysphagia Medical Established Patient wit h Karla Amber MINUTE CLERK [employer]IC [employer]FFIC 09/11/2018 Last Documented On 9 10:53AM ; [facility] Assess routine adult history and physical (18 - 64 yrs) Medical Established Patient with Karla Amber MINUTE CLERK FOR BASIC TRAFFIC 09/11/2018 Last Documented On 9 10:53AM ; [facility] Assess primary insomnia with sleep apnea Medical Established Patient with Karla Amber MINUTE CLERK FOR BASIC TRAFFIC 09/04/2018 Last Documented On 9 2:23PM ; [facility] Assess routine adult history and physical (18 - 64 yrs) Medical Established Patient with Karla Amber MINUTE CLERK FOR BASIC TRAFFIC 09/04/2018 Last Documented On 9 2:23PM ; [facility] Overweight Medical Established Patient with Karla Amber MINUTE CLERK FOR BASIC TRAFFIC 09/04/2018 Last Documented On 9 2:23PM ; [facility] Z68.29 - Body mass index (BM I) 29.0-29.9, adult Medical Established Patient with Karla Amber MINUTE CLERK [employer] BASIC TRAFFIC 09/04/2018 Last Documented On 9 2:23PM ; [facility] Assess vaginal candidiasis Medical Estab lished Patient with Karla Amber MINUTE CLERK FOR BASIC TRAFFIC 07/31/2018 Last Documented On 9 2:12PM ; [facility] Work Phone: Evaluation note Includes: Assessments for all patient encounters Findings Encounter Date [M25.569 - Pain in unspecifi ed knee] arthralgia of knee / patella / tibia / fibula Medical Established Patient with Karla Clark CNP 08/27/2022 Last Documented On 3 8:56AM ; [facility] [Z68.24 - Body mass index [B AZ] 24.0-24.9, adult] assessment of body mass index Medical Established Patient with Karla Clark CNP 08/27/2022 Last Documented On 3 8:56AM ; [facility] Intervention and counseling on cessation of tobacco use, 3-10 minutes Discussed medication and nicotine replacement for tobacco cessation Medical Established Patient with Karla Clark CNP 08/27/2022 Last Documented On 3 8:56AM ; [facility] Nicotine dependence Medical Established Patient with Karla Clark CNP 08/27/2022 Last Documented On 3 8:56AM ; [facility] Visit for routine adult H&P without abnormal findings Medical Established Patient with Karla Clark CNP 08/27/2022 Last Documented On 3 8:56AM ; [facility] [H92.02 - Otalgia, left ear] earache Med ical Established Patient with Karla Clark MINUTE CLERK FOR BASIC TRAFFIC 06/18/2022 Last Documented On 3 12:11PM ; [facility] [M79.604 - Pain in right leg ] pain in right leg Medical Established Patient with Karla Clark MINUTE CLERK FOR BASIC TRAFFIC 06/18/2022 Last Documented On 3 12:11PM ; [facility] [Z68.24 - Body mass index [B AZ] 24.0-24.9, adult] assessment of body mass index Medical Established Patient with Karla Clark MINUTE CLERK FOR BASIC TRAFFIC 06/18/2022 Last Documented On 3 12:11PM ; [facility] Assessment of tobacco use Medical Establ ished Patient with Karla Clark MINUTE CLERK FOR BASIC TRAFFIC 06/18/2022 Last Documented On 3 12:11PM ; [facility] Diabetes Risk Test Score was four score 06/18/2022 Medical Established Patient with Karla Clark MINUTE CLERK FOR BASIC TRAFFIC 06/18/2022 Last Documented On 3 12:11PM ; [facility] Schizoaffective disorder Established Patient with Yin Feliz LPCC-S 03/20/2022 Last Documented On 2 12:13AM ; [facility] No cough Medical Established Patient with Karla Amber MINUTE CLERK [employer] BASIC TRAFFIC 12/20/2021 Last Documented On 2 3:12PM ; [facility] Visit for: screening for hum an immunodeficiency virus Medical Established Patient with Karla Amber MINUTE CLERK FOR BASIC TRAFFIC 12/20/2021 Last Documented On 2 3:12PM ; [facility] Z68.24 - Body mass index [BM I] 24.0-24.9, adult Medical Established Patient with Karla Amber MINUTE CLERK FOR BASIC TRAFFIC 12/20/2021 Last Documented On 2 3:12PM ; [facility] Bipolar disorder NOS BH Established Patient with Yin Feliz LPCC-S 11/03/2021 Last Documented On 2 7:00PM ; [facility] Bipolar schizoaffective disorder BH Esta blished Patient with Yin Feliz LPCC-S 11/03/2021 Last Documented On 2 7:00PM ; [facility] PLAN Medical Established Patient with Don Pino MD 11/03/2021 Last Documented On 2 10:40AM ; [facility] Abnormal electrocardiogram Medical Estab lished Patient with Don Pino MD 11/03/2021 Last Documented On 2 10:40AM ; [facility] Z68.24 - Body mass index [BM I] 24.0-24.9, adult Medical Established Patient with Don Pino MD 11/03/2021 Last Documented On 2 10:40AM ; [facility] Cough Medical Established Patient with Karla Amber MINUTE CLERK FOR BASIC TRAFFIC 07/28/2021 Last Documented On 2 2:01PM ; [facility] Intervention and counseling on cessation of tobacco use, 3-10 minutes Discussed medication and nicotine replacement for tobacco cessation Medical Established Patient with Karla Amber MINUTE CLERK FOR BASIC TRAFFIC 07/28/2021 Last Documented On 2 2:01PM ; [facility] Nicotine dependence Medical Established Patient with Karla Amber MINUTE CLERK FOR BASIC TRAFFIC 07/28/2021 Last Documented On 2 2:01PM ; [facility] Z68.24 - Body mass index [BM I] 24.0-24.9, adult Medical Established Patient with Karla Amber MINUTE CLERK FOR BASIC TRAFFIC 07/28/2021 Last Documented On 2 2:01PM ; [facility] Assess Colon screening Medical Established Patie nt with Karla Amber MINUTE CLERK FOR BASIC TRAFFIC 05/08/2021 Last Documented On 1 10:59AM ; [facility] Diabetes Risk Test Score was four score 05/08/2021 Medical Established Patient with Karla Amber MINUTE CLERK FOR BASIC TRAFFIC 05/08/2021 Last Documented On 1 10:59AM ; [facility] Routine adult history and ph ysical (18-64 yrs) without abnormal findings Medical Established Patient with Karla Amber MINUTE CLERK FOR BASIC TRAFFIC 05/08/2021 Last Documented On 1 10:59AM ; [facility] Z68.24 - Body mass index [BM I] 24.0-24.9, adult Medical Established Patient with Karla Amber MINUTE CLERK FOR BASIC TRAFFIC 05/08/2021 Last Documented On 1 10:59AM ; [facility] Z68.24 - Body mass index [BM I] 24.0-24.9, adult Medical Established Patient with Karla Amber MINUTE CLERK FOR BASIC TRAFFIC 06/17/2020 Last Documented On 1 10:30AM ; [facility] Overweight Medical Established Patient with Karla Amber MINUTE CLERK FOR BASIC TRAFFIC 06/06/2020 Last Documented On 1 2:06PM ; [facility] Z68.25 - Body mass index [BM I] 25.0-25.9, adult Medical Established Patient with Karla Amber MINUTE CLERK FOR BASIC TRAFFIC 06/06/2020 Last Documented On 1 2:06PM ; [facility] Antiasthmatics [facility] Asthma Clinic-New with Karlajulius Floresen MINUTE CLERK FOR BASIC TRAFFIC 05/06/2020 Last Documented On 0 7:27PM ; [facility] Assessment of tobacco use [facility] Asthma Clinic-New with Karla Amber MINUTE CLERK FOR BASIC TRAFFIC 05/06/2020 Last Documented On 0 7:27PM ; [facility] Body mass index [facility] Asthma Clinic-New with Karla Amber MINUTE CLERK FOR BASIC TRAFFIC 05/06/2020 Last Documented On 0 7:27PM ; [facility] Chronic obstructive pulmonary disease CP S [facility]-New with Karla Amber MINUTE CLERK FOR BASIC TRAFFIC 05/06/2020 Last Documented On 0 7:27PM ; [facility] Overweight CPS [facility]-New with Karla Floresen MINUTE CLERK FOR BASIC TRAFFIC 05/06/2020 Last Documented On 0 7:27PM ; [facility] Z11.4 - Encounter for screen ing for human immunodeficiency virus [HIV] CPS [facility]-New with Karlajulius Floresen MINUTE CLERK FOR BASIC TRAFFIC 05/06/2020 Last Documented On 0 7:27PM ; [facility] Diabetes Risk Test Score was three score 03/31/2020 Medical Established Patient with Karlajulius Floresen MINUTE CLERK FOR BASIC TRAFFIC 03/31/2020 Last Documented On 0 3:22PM ; [facility] Overweight Medical Established Patient with Karlajulius Floresen MINUTE CLERK FOR BASIC TRAFFIC 03/31/2020 Last Documented On 0 3:22PM ; [facility] Z68.25 - Body mass index [BM I] 25.0-25.9, adult Medical Established Patient with Karla Floresen MINUTE CLERK FOR BASIC TRAFFIC 03/31/2020 Last Documented On 0 3:22PM ; [facility] Encounter for Immunization Nurse Visit with Gary Clark MINUTE CLERK FOR BASIC TRAFFIC 03/14/2020 Last Documented On 0 5:11PM ; [facility] Body mass index Medical Established Patient with Karla Floresen MINUTE CLERK FOR BASIC TRAFFIC 02/26/2020 Last Documented On 0 1:18PM ; [facility] Overweight Medical Established Patient with Karla Amber MINUTE CLERK FOR BASIC TRAFFIC 02/26/2020 Last Documented On 0 1:18PM ; [facility] Overweight Medical Established Patient with Karlajulius Floresen MINUTE CLERK FOR BASIC TRAFFIC 07/23/2019 Last Documented On 0 2:33PM ; [facility] Z68.27 - Body mass index (BM I) 27.0-27.9, adult Medical Established Patient with Karlajulius Floresen MINUTE CLERK FOR BASIC TRAFFIC 07/23/2019 Last Documented On 0 2:33PM ; [facility] Occasional asthma CPS- Asthma Clinic- F/U with A french Clark MINUTE CLERK FOR BASIC TRAFFIC 06/05/2019 Last Documented On 0 7:04PM ; [facility] Overweight CPS- [facility] Clinic- F/U with Aim julius Clark MINUTE CLERK FOR BASIC TRAFFIC 06/05/2019 Last Documented On 0 7:04PM ; [facility] Z68.27 - Body mass index (BM I) 27.0-27.9 adult CPS- Asthma Clinic- F/U with Karla Clark MINUTE CLERK FOR BASIC TRAFFIC 06/05/2019 Last Documented On 0 7:04PM ; [facility] Occasional asthma CPS Med Review with Karla dinh MINUTE CLERK FOR BASIC TRAFFIC 04/23/2019 Last Documented On 9 4:01PM ; [facility] Overweight CPS Med Review with Karla Clark MINUTE CLERK FOR BASIC TRAFFIC 04/23/2019 Last Documented On 9 4:01PM ; [facility] Z68.27 - Body mass index (BM I) 27.0-27.9 adult CPS Med Review with Karla Floresen MINUTE CLERK FOR BASIC TRAFFIC 04/23/2019 Last Documented On 9 4:01PM ; [facility] Acute pharyngitis Medical Established Patient wi th Brandy Serranoer MINUTE CLERK FOR BASIC TRAFFIC 04/15/2019 Last Documented On 9 12:31PM ; [facility] Asthmatic bronchitis with ac [place] exacerbation Medical Established Patient with Brandy Warren MINUTE CLERK FOR BASIC TRAFFIC 04/15/2019 Last Documented On 9 12:31PM ; [facility] Fagerstrom Score was two Medical Established Pat ient with Brandy Warren MINUTE CLERK FOR BASIC TRAFFIC 04/15/2019 Last Documented On 9 12:31PM ; [facility] PHQ-9: total score was three 04/15/2019 Medical Established Patient with Brandy Warren MINUTE CLERK FOR BASIC TRAFFIC 04/15/2019 Last Documented On 9 12:31PM ; [facility] Body mass index Medical Established Patient with Karlajulius Floresen MINUTE CLERK FOR BASIC TRAFFIC 03/05/2019 Last Documented On 9 10:27AM ; [facility] Diabetes Risk Test Score was three score Medical Established Patient with Karla Amber MINUTE CLERK FOR BASIC TRAFFIC 03/05/2019 Last Documented On 9 10:27AM ; [facility] Overweight Medical Established Patient with Karla Maber MINUTE CLERK FOR BASIC TRAFFIC 03/05/2019 Last Documented On 9 10:27AM ; [facility] Z68.28 - Body mass index (BM I) 28.0-28.9, adult Medical Established Patient with Karla Amber MINUTE CLERK FOR BASIC TRAFFIC 12/22/2018 Last Documented On 9 10:32AM ; [facility] Assess routine adult history and physical (18 - 64 yrs) Medical Established Patient with Karla Amber MINUTE CLERK FOR BASIC TRAFFIC 11/06/2018 Last Documented On 9 2:26PM ; [facility] Overweight Medical Established Patient with Karla Amber MINUTE CLERK FOR BASIC TRAFFIC 11/06/2018 Last Documented On 9 2:26PM ; [facility] Z68.28 - Body mass index (BM I) 28.0-28.9, adult Medical Established Patient with Karla Amber MINUTE CLERK FOR BASIC TRAFFIC 11/06/2018 Last Documented On 9 2:26PM ; [facility] Assess dysphagia Medical Established Patient wit h Karla Amber MINUTE CLERK FOR BASIC TRAFFIC 09/11/2018 Last Documented On 9 10:53AM ; [facility] Assess routine adult history and physical (18 - 64 yrs) Medical Established Patient with Karla Amber MINUTE CLERK FOR BASIC TRAFFIC 09/11/2018 Last Documented On 9 10:53AM ; [facility] Assess primary insomnia with sleep apnea Medical Established Patient with Karla Amber MINUTE CLERK FOR BASIC TRAFFIC 09/04/2018 Last Documented On 9 2:23PM ; [facility] Assess routine adult history and physical (18 - 64 yrs) Medical Established Patient with Karla Amber MINUTE CLERK FOR BASIC TRAFFIC 09/04/2018 Last Documented On 9 2:23PM ; [facility] Overweight Medical Established Patient with Karla Amber MINUTE CLERK FOR BASIC TRAFFIC 09/04/2018 Last Documented On 9 2:23PM ; [facility] Z68.29 - Body mass index (BM I) 29.0-29.9, adult Medical Established Patient with Karla Amber MINUTE CLERK FOR BASIC TRAFFIC 09/04/2018 Last Documented On 9 2:23PM ; [facility] Assess vaginal candidiasis Medical Estab lished Patient with Karla Amber MINUTE CLERK FOR BASIC TRAFFIC 07/31/2018 Last Documented On 9 2:12PM ; [facility] Work Phone: Evaluation note Includes: Assessments for all patient encounters Findings Encounter Date [M25.569 - Pain in unspecifi ed knee] arthralgia of knee / patella / tibia / fibula Medical Established Patient with Karla Clark CNP 08/27/2022 Last Documented On 3 9:20AM ; [facility] [Z68.24 - Body mass index [B AZ] 24.0-24.9, adult] assessment of body mass index Medical Established Patient with Karla Clark CNP 08/27/2022 Last Documented On 3 9:20AM ; [facility] Intervention and counseling on cessation of tobacco use, 3-10 minutes Discussed medication and nicotine replacement for tobacco cessation Medical Established Patient with Karla Clark CNP 08/27/2022 Last Documented On 3 9:20AM ; [facility] Nicotine dependence Medical Established Patient with Karla Clark CNP 08/27/2022 Last Documented On 3 9:20AM ; [facility] Visit for routine adult H&P without abnormal findings Medical Established Patient with Karla Clark CNP 08/27/2022 Last Documented On 3 9:20AM ; [facility] [H92.02 - Otalgia, left ear] earache Med ical Established Patient with Karla Clark CNP 06/18/2022 Last Documented On 3 12:11PM ; [facility] [M79.604 - Pain in right leg ] pain in right leg Medical Established Patient with Karla Clark MINUTE CLERK FOR BASIC TRAFFIC 06/18/2022 Last Documented On 3 12:11PM ; [facility] [Z68.24 - Body mass index [B AZ] 24.0-24.9, adult] assessment of body mass index Medical Established Patient with Karla Clark MINUTE CLERK FOR BASIC TRAFFIC 06/18/2022 Last Documented On 3 12:11PM ; [facility] Assessment of tobacco use Medical Establ ished Patient with Karla Clark MINUTE CLERK FOR BASIC TRAFFIC 06/18/2022 Last Documented On 3 12:11PM ; [facility] Diabetes Risk Test Score was four score 06/18/2022 Medical Established Patient with Karlajulius Floresen MINUTE CLERK FOR BASIC TRAFFIC 06/18/2022 Last Documented On 3 12:11PM ; [facility] Schizoaffective disorder Established Patient with Yin Feliz LPCC-S 03/20/2022 Last Documented On 2 12:13AM ; [facility] No cough Medical Established Patient with Karla Amber MINUTE CLERK FOR BASIC TRAFFIC 12/20/2021 Last Documented On 2 3:12PM ; [facility] Visit for: screening for hum an immunodeficiency virus Medical Established Patient with Karla Amber MINUTE CLERK FOR BASIC TRAFFIC 12/20/2021 Last Documented On 2 3:12PM ; [facility] Z68.24 - Body mass index [BM I] 24.0-24.9, adult Medical Established Patient with Karlajulius Floresen MINUTE CLERK FOR BASIC TRAFFIC 12/20/2021 Last Documented On 2 3:12PM ; [facility] Bipolar disorder NOS Established Patient with Yin Feliz LPCC-S 11/03/2021 Last Documented On 2 7:00PM ; [facility] Bipolar schizoaffective disorder BH Esta blished Patient with Yin Feliz LPCC-S 11/03/2021 Last Documented On 2 7:00PM ; [facility] PLAN Medical Established Patient with Don Pino MD 11/03/2021 Last Documented On 2 10:40AM ; [facility] Abnormal electrocardiogram Medical Estab lished Patient with Don Pino MD 11/03/2021 Last Documented On 2 10:40AM ; [facility] Z68.24 - Body mass index [BM I] 24.0-24.9, adult Medical Established Patient with Don Pino MD 11/03/2021 Last Documented On 2 10:40AM ; [facility] Cough Medical Established Patient with Karlajulius Clark MINUTE CLERK FOR BASIC TRAFFIC 07/28/2021 Last Documented On 2 2:01PM ; [facility] Intervention and counseling on cessation of tobacco use, 3-10 minutes Discussed medication and nicotine replacement for tobacco cessation Medical Established Patient with Karla Amber MINUTE CLERK FOR BASIC TRAFFIC 07/28/2021 Last Documented On 2 2:01PM ; [facility] Nicotine dependence Medical Established Patient with Karla Amber MINUTE CLERK FOR BASIC TRAFFIC 07/28/2021 Last Documented On 2 2:01PM ; [facility] Z68.24 - Body mass index [BM I] 24.0-24.9, adult Medical Established Patient with Karla Abmer MINUTE CLERK FOR BASIC TRAFFIC 07/28/2021 Last Documented On 2 2:01PM ; [facility] Assess Colon screening Medical Established Patie nt with Karla Amber MINUTE CLERK FOR BASIC TRAFFIC 05/08/2021 Last Documented On 1 10:59AM ; [facility] Diabetes Risk Test Score was four score 05/08/2021 Medical Established Patient with Karla Amber MINUTE CLERK FOR BASIC TRAFFIC 05/08/2021 Last Documented On 1 10:59AM ; [facility] Routine adult history and ph ysical (18-64 yrs) without abnormal findings Medical Established Patient with Karla Amber MINUTE CLERK FOR BASIC TRAFFIC 05/08/2021 Last Documented On 1 10:59AM ; [facility] Z68.24 - Body mass index [BM I] 24.0-24.9, adult Medical Established Patient with Karla Amber MINUTE CLERK FOR BASIC TRAFFIC 05/08/2021 Last Documented On 1 10:59AM ; [facility] Z68.24 - Body mass index [BM I] 24.0-24.9, adult Medical Established Patient with Karla Amber MINUTE CLERK FOR BASIC TRAFFIC 06/17/2020 Last Documented On 1 10:30AM ; [facility] Overweight Medical Established Patient with Karla Amber MINUTE CLERK FOR BASIC TRAFFIC 06/06/2020 Last Documented On 1 2:06PM ; [facility] Z68.25 - Body mass index [BM I] 25.0-25.9, adult Medical Established Patient with Karla Amber MINUTE CLERK FOR BASIC TRAFFIC 06/06/2020 Last Documented On 1 2:06PM ; [facility] Antiasthmatics [facility] Asthma Clinic-New with Karla Clark MINUTE CLERK FOR BASIC TRAFFIC 05/06/2020 Last Documented On 0 7:27PM ; [facility] Assessment of tobacco use [facility] Asthma Clinic-New with Karla Amber MINUTE CLERK FOR BASIC TRAFFIC 05/06/2020 Last Documented On 0 7:27PM ; [facility] Body mass index CPS [facility]-New with Karla Amber MINUTE CLERK FOR BASIC TRAFFIC 05/06/2020 Last Documented On 0 7:27PM ; [facility] Chronic obstructive pulmonary disease CP S [facility]-New with Karla Amber MINUTE CLERK FOR BASIC TRAFFIC 05/06/2020 Last Documented On 0 7:27PM ; [facility] Overweight CPS [facility]-New with Karla Amber MINUTE CLERK FOR BASIC TRAFFIC 05/06/2020 Last Documented On 0 7:27PM ; [facility] Z11.4 - Encounter for screen ing for human immunodeficiency virus [HIV] CPS [facility]-New with Karla Amber MINUTE CLERK FOR BASIC TRAFFIC 05/06/2020 Last Documented On 0 7:27PM ; [facility] Diabetes Risk Test Score was three score 03/31/2020 Medical Established Patient with Karla Amber MINUTE CLERK FOR BASIC TRAFFIC 03/31/2020 Last Documented On 0 3:22PM ; [facility] Overweight Medical Established Patient with Karla Amber MINUTE CLERK FOR BASIC TRAFFIC 03/31/2020 Last Documented On 0 3:22PM ; [facility] Z68.25 - Body mass index [BM I] 25.0-25.9, adult Medical Established Patient with Karla Amber MINUTE CLERK FOR BASIC TRAFFIC 03/31/2020 Last Documented On 0 3:22PM ; [facility] Encounter for Immunization Nurse Visit with Gary Clark MINUTE CLERK FOR BASIC TRAFFIC 03/14/2020 Last Documented On 0 5:11PM ; [facility] Body mass index Medical Established Patient with Karla Amebr MINUTE CLERK FOR BASIC TRAFFIC 02/26/2020 Last Documented On 0 1:18PM ; [facility] Overweight Medical Established Patient with Karla Amber MINUTE CLERK FOR BASIC TRAFFIC 02/26/2020 Last Documented On 0 1:18PM ; [facility] Overweight Medical Established Patient with Karla Amber MINUTE CLERK FOR BASIC TRAFFIC 07/23/2019 Last Documented On 0 2:33PM ; [facility] Z68.27 - Body mass index (BM I) 27.0-27.9, adult Medical Established Patient with Karla Amber MINUTE CLERK FOR BASIC TRAFFIC 07/23/2019 Last Documented On 0 2:33PM ; [facility] Occasional asthma CPS- Asthma Clinic- F/U with A french Clark MINUTE CLERK FOR BASIC TRAFFIC 06/05/2019 Last Documented On 0 7:04PM ; [facility] Overweight CPS- [facility] Clinic- F/U with Aim julius Clark MINUTE CLERK FOR BASIC TRAFFIC 06/05/2019 Last Documented On 0 7:04PM ; [facility] Z68.27 - Body mass index (BM I) 27.0-27.9 adult CPS- [facility] Clinic- F/U with Karla Clark MINUTE CLERK FOR BASIC TRAFFIC 06/05/2019 Last Documented On 0 7:04PM ; [facility] Occasional asthma CPS Med Review with Karla Sandra dinh MINUTE CLERK FOR BASIC TRAFFIC 04/23/2019 Last Documented On 9 4:01PM ; [facility] Overweight CPS Med Review with Karla Amber MINUTE CLERK FOR BASIC TRAFFIC 04/23/2019 Last Documented On 9 4:01PM ; [facility] Z68.27 - Body mass index (BM I) 27.0-27.9 adult CPS Med Review with Karla Floresen MINUTE CLERK FOR BASIC TRAFFIC 04/23/2019 Last Documented On 9 4:01PM ; [facility] Acute pharyngitis Medical Established Patient wi th Branyd Warren MINUTE CLERK FOR BASIC TRAFFIC 04/15/2019 Last Documented On 9 12:31PM ; [facility] Asthmatic bronchitis with ac [place] exacerbation Medical Established Patient with Brandy Warren MINUTE CLERK FOR BASIC TRAFFIC 04/15/2019 Last Documented On 9 12:31PM ; [facility] Fagerstrom Score was two Medical Established Pat ient with Brandy Warren MINUTE CLERK FOR BASIC TRAFFIC 04/15/2019 Last Documented On 9 12:31PM ; [facility] PHQ-9: total score was three 04/15/2019 Medical Established Patient with Brandy Warren MINUTE CLERK FOR BASIC TRAFFIC 04/15/2019 Last Documented On 9 12:31PM ; [facility] Body mass index Medical Established Patient with Karla Clark MINUTE CLERK FOR BASIC TRAFFIC 03/05/2019 Last Documented On 9 10:27AM ; [facility] Diabetes Risk Test Score was three score Medical Established Patient with Karla Amber MINUTE CLERK FOR BASIC TRAFFIC 03/05/2019 Last Documented On 9 10:27AM ; [facility] Overweight Medical Established Patient with Karla Amber MINUTE CLERK FOR BASIC TRAFFIC 03/05/2019 Last Documented On 9 10:27AM ; [facility] Z68.28 - Body mass index (BM I) 28.0-28.9, adult Medical Established Patient with Karla Amber MINUTE CLERK FOR BASIC TRAFFIC 12/22/2018 Last Documented On 9 10:32AM ; [facility] Assess routine adult history and physical (18 - 64 yrs) Medical Established Patient with Karla Amber MINUTE CLERK FOR BASIC TRAFFIC 11/06/2018 Last Documented On 9 2:26PM ; [facility] Overweight Medical Established Patient with Karla Amber MINUTE CLERK FOR BASIC TRAFFIC 11/06/2018 Last Documented On 9 2:26PM ; [facility] Z68.28 - Body mass index (BM I) 28.0-28.9, adult Medical Established Patient with Karla Amber MINUTE CLERK FOR BASIC TRAFFIC 11/06/2018 Last Documented On 9 2:26PM ; [facility] Assess dysphagia Medical Established Patient wit h Karla Amber MINUTE CLERK FOR BASIC TRAFFIC 09/11/2018 Last Documented On 9 10:53AM ; [facility] Assess routine adult history and physical (18 - 64 yrs) Medical Established Patient with Karla Amber MINUTE CLERK FOR BASIC TRAFFIC 09/11/2018 Last Documented On 9 10:53AM ; [facility] Assess primary insomnia with sleep apnea Medical Established Patient with Karla Amber MINUTE CLERK FOR BASIC TRAFFIC 09/04/2018 Last Documented On 9 2:23PM ; [facility] Assess routine adult history and physical (18 - 64 yrs) Medical Established Patient with Karla Amber MINUTE CLERK FOR BASIC TRAFFIC 09/04/2018 Last Documented On 9 2:23PM ; [facility] Overweight Medical Established Patient with Karla Amber MINUTE CLERK FOR BASIC TRAFFIC 09/04/2018 Last Documented On 9 2:23PM ; [facility] Z68.29 - Body mass index (BM I) 29.0-29.9, adult Medical Established Patient with Karla Amber MINUTE CLERK FOR BASIC TRAFFIC 09/04/2018 Last Documented On 9 2:23PM ; [facility] Assess vaginal candidiasis Medical Estab lished Patient with Karla Clark MINUTE CLERK FOR BASIC TRAFFIC 07/31/2018 Last Documented On 9 2:12PM ; [facility] Work Phone: Evaluation noteNo assessment information available [facility] Work Phone: Evaluation noteNo [facility] [employer] Other Evaluation note Includes: Assessments for all patient encounters Findings Encounter Date [J20.9 - Acute bronchitis, unspecified] acute bronchitis Medical Established Patient with Karla Clark MINUTE CLERK FOR BASIC TRAFFIC 11/19/2022 Last Documented On 3 10:15AM ; [facility] [M79.621 - Pain in right upp er arm] pain in upper arm Medical Established Patient with Karla Clark MINUTE CLERK FOR BASIC TRAFFIC 11/19/2022 Last Documented On 3 10:15AM ; [facility] [Z68.23 - Body mass index [B AZ] 23.0-23.9, adult] assessment of body mass index Medical Established Patient with Karla Clark MINUTE CLERK FOR BASIC TRAFFIC 11/19/2022 Last Documented On 3 10:15AM ; [facility] [M79.601 - Pain in right arm ] pain in right arm Medical Established Patient with Karlajulius Clark MINUTE CLERK FOR BASIC TRAFFIC 09/18/2022 Last Documented On 3 2:33PM ; [facility] [Z68.24 - Body mass index [B AZ] 24.0-24.9, adult] assessment of body mass index Medical Established Patient with Karla Clark MINUTE CLERK FOR BASIC TRAFFIC 09/18/2022 Last Documented On 3 2:33PM ; [facility] Assessment of tobacco use Medical Establ ished Patient with Karla Amber MINUTE CLERK FOR BASIC TRAFFIC 09/18/2022 Last Documented On 3 2:33PM ; [facility] [M25.569 - Pain in unspecifi ed knee] arthralgia of knee / patella / tibia / fibula Medical Established Patient with Karlajulius Clark MINUTE CLERK FOR BASIC TRAFFIC 08/27/2022 Last Documented On 3 9:20AM ; [facility] [Z68.24 - Body mass index [B AZ] 24.0-24.9, adult] assessment of body mass index Medical Established Patient with Karla Clark MINUTE CLERK FOR BASIC TRAFFIC 08/27/2022 Last Documented On 3 9:20AM ; [facility] Intervention and counseling on cessation of tobacco use, 3-10 minutes Discussed medication and nicotine replacement for tobacco cessation Medical Established Patient with Karla Clark MINUTE CLERK FOR BASIC TRAFFIC 08/27/2022 Last Documented On 3 9:20AM ; [facility] Nicotine dependence Medical Established Patient with Karlajulius Clark MINUTE CLERK FOR BASIC TRAFFIC 08/27/2022 Last Documented On 3 9:20AM ; [facility] Visit for routine adult H&P without abnormal findings Medical Established Patient with Karla Clark MINUTE CLERK FOR BASIC TRAFFIC 08/27/2022 Last Documented On 3 9:20AM ; [facility] [H92.02 - Otalgia, left ear] earache Med ical Established Patient with Karla Clark MINUTE CLERK FOR BASIC TRAFFIC 06/18/2022 Last Documented On 3 12:11PM ; [facility] [M79.604 - Pain in right leg ] pain in right leg Medical Established Patient with Karla Clark MINUTE CLERK FOR BASIC TRAFFIC 06/18/2022 Last Documented On 3 12:11PM ; [facility] [Z68.24 - Body mass index [B AZ] 24.0-24.9, adult] assessment of body mass index Medical Established Patient with Karla Clark MINUTE CLERK FOR BASIC TRAFFIC 06/18/2022 Last Documented On 3 12:11PM ; [facility] Assessment of tobacco use Medical Establ ished Patient with Karla Clark MINUTE CLERK FOR BASIC TRAFFIC 06/18/2022 Last Documented On 3 12:11PM ; [facility] Diabetes Risk Test Score was four score 06/18/2022 Medical Established Patient with Karla Clark MINUTE CLERK FOR BASIC TRAFFIC 06/18/2022 Last Documented On 3 12:11PM ; [facility] Schizoaffective disorder BH Established Patient with Yin Feliz LPCC-S 03/20/2022 Last Documented On 2 12:13AM ; [facility] No cough Medical Established Patient with Karla Clark MINUTE CLERK FOR BASIC TRAFFIC 12/20/2021 Last Documented On 2 3:12PM ; [facility] Visit for: screening for hum an immunodeficiency virus Medical Established Patient with Karla Clark MINUTE CLERK FOR BASIC TRAFFIC 12/20/2021 Last Documented On 2 3:12PM ; [facility] Z68.24 - Body mass index [BM I] 24.0-24.9, adult Medical Established Patient with Karla Clark MINUTE CLERK FOR BASIC TRAFFIC 12/20/2021 Last Documented On 2 3:12PM ; [facility] Bipolar disorder NOS BH Established Patient with Yin Feliz LPCC-S 11/03/2021 Last Documented On 2 7:00PM ; [facility] Bipolar schizoaffective disorder BH Esta blished Patient with Yin Feliz LPCC-S 11/03/2021 Last Documented On 2 7:00PM ; [facility] PLAN Medical Established Patient with Don Pino MD 11/03/2021 Last Documented On 2 10:40AM ; [facility] Abnormal electrocardiogram Medical Estab lished Patient with Don Pino MD 11/03/2021 Last Documented On 2 10:40AM ; [facility] Z68.24 - Body mass index [BM I] 24.0-24.9, adult Medical Established Patient with Don Pino MD 11/03/2021 Last Documented On 2 10:40AM ; [facility] Cough Medical Established Patient with Karla Clark MINUTE CLERK FOR BASIC TRAFFIC 07/28/2021 Last Documented On 2 2:01PM ; [facility] Intervention and counseling on cessation of tobacco use, 3-10 minutes Discussed medication and nicotine replacement for tobacco cessation Medical Established Patient with Karla Clark MINUTE CLERK FOR BASIC TRAFFIC 07/28/2021 Last Documented On 2 2:01PM ; [facility] Nicotine dependence Medical Established Patient with Karla Amber MINUTE CLERK FOR BASIC TRAFFIC 07/28/2021 Last Documented On 2 2:01PM ; [facility] Z68.24 - Body mass index [BM I] 24.0-24.9, adult Medical Established Patient with Karlajulius Clark MINUTE CLERK FOR BASIC TRAFFIC 07/28/2021 Last Documented On 2 2:01PM ; [facility] Assess Colon screening Medical Established Patie nt with Karla Amber MINUTE CLERK FOR BASIC TRAFFIC 05/08/2021 Last Documented On 1 10:59AM ; [facility] Diabetes Risk Test Score was four score 05/08/2021 Medical Established Patient with Karla Amber MINUTE CLERK FOR BASIC TRAFFIC 05/08/2021 Last Documented On 1 10:59AM ; [facility] Routine adult history and ph ysical (18-64 yrs) without abnormal findings Medical Established Patient with Karla Amber MINUTE CLERK FOR BASIC TRAFFIC 05/08/2021 Last Documented On 1 10:59AM ; [facility] Z68.24 - Body mass index [BM I] 24.0-24.9, adult Medical Established Patient with Karla Amber MINUTE CLERK FOR BASIC TRAFFIC 05/08/2021 Last Documented On 1 10:59AM ; [facility] Z68.24 - Body mass index [BM I] 24.0-24.9, adult Medical Established Patient with Karla Amber MINUTE CLERK FOR BASIC TRAFFIC 06/17/2020 Last Documented On 1 10:30AM ; [facility] Overweight Medical Established Patient with Karla Amber MINUTE CLERK FOR BASIC TRAFFIC 06/06/2020 Last Documented On 1 2:06PM ; [facility] Z68.25 - Body mass index [BM I] 25.0-25.9, adult Medical Established Patient with Karla Amber MINUTE CLERK FOR BASIC TRAFFIC 06/06/2020 Last Documented On 1 2:06PM ; [facility] Antiasthmatics [facility] Asthma Clinic-New with Karla Amber MINUTE CLERK FOR BASIC TRAFFIC 05/06/2020 Last Documented On 0 7:27PM ; [facility] Assessment of tobacco use [facility] Clinic-New with Karla Amber MINUTE CLERK FOR BASIC TRAFFIC 05/06/2020 Last Documented On 0 7:27PM ; [facility] Body mass index [facility] Clinic-New with Karla Amber MINUTE CLERK FOR BASIC TRAFFIC 05/06/2020 Last Documented On 0 7:27PM ; [facility] Chronic obstructive pulmonary disease CP S [facility]-New with Karla Amber MINUTE CLERK FOR BASIC TRAFFIC 05/06/2020 Last Documented On 0 7:27PM ; [facility] Overweight CPS [facility]-New with Karla Clark MINUTE CLERK FOR BASIC TRAFFIC 05/06/2020 Last Documented On 0 7:27PM ; [facility] Z11.4 - Encounter for screen ing for human immunodeficiency virus [HIV] CPS [facility]-New with Karla Clark MINUTE CLERK FOR BASIC TRAFFIC 05/06/2020 Last Documented On 0 7:27PM ; [facility] Diabetes Risk Test Score was three score 03/31/2020 Medical Established Patient with Karla Floresen MINUTE CLERK FOR BASIC TRAFFIC 03/31/2020 Last Documented On 0 3:22PM ; [facility] Overweight Medical Established Patient with Karla Floresen MINUTE CLERK FOR BASIC TRAFFIC 03/31/2020 Last Documented On 0 3:22PM ; [facility] Z68.25 - Body mass index [BM I] 25.0-25.9, adult Medical Established Patient with Karla Clark MINUTE CLERK FOR BASIC TRAFFIC 03/31/2020 Last Documented On 0 3:22PM ; [facility] Encounter for Immunization Nurse Visit with Gary Clark MINUTE CLERK FOR BASIC TRAFFIC 03/14/2020 Last Documented On 0 5:11PM ; [facility] Body mass index Medical Established Patient with Karla Floresen MINUTE CLERK FOR BASIC TRAFFIC 02/26/2020 Last Documented On 0 1:18PM ; [facility] Overweight Medical Established Patient with Karla Floresen MINUTE CLERK FOR BASIC TRAFFIC 02/26/2020 Last Documented On 0 1:18PM ; [facility] Overweight Medical Established Patient with Karla Clark MINUTE CLERK FOR BASIC TRAFFIC 07/23/2019 Last Documented On 0 2:33PM ; [facility] Z68.27 - Body mass index (BM I) 27.0-27.9, adult Medical Established Patient with Karla Floresen MINUTE CLERK FOR BASIC TRAFFIC 07/23/2019 Last Documented On 0 2:33PM ; [facility] Occasional asthma CPS- Asthma Clinic- F/U with A french Clark MINUTE CLERK FOR BASIC TRAFFIC 06/05/2019 Last Documented On 0 7:04PM ; [facility] Overweight CPS- [facility] Clinic- F/U with Alta Clark MINUTE CLERK FOR BASIC TRAFFIC 06/05/2019 Last Documented On 0 7:04PM ; [facility] Z68.27 - Body mass index (BM I) 27.0-27.9 adult CPS- [facility]- F/U with Karla Clark MINUTE CLERK FOR BASIC TRAFFIC 06/05/2019 Last Documented On 0 7:04PM ; [facility] Occasional asthma CPS Med Review with Karlajulius dinh MINUTE CLERK FOR BASIC TRAFFIC 04/23/2019 Last Documented On 9 4:01PM ; [facility] Overweight CPS Med Review with Karla Clark MINUTE CLERK FOR BASIC TRAFFIC 04/23/2019 Last Documented On 9 4:01PM ; [facility] Z68.27 - Body mass index (BM I) 27.0-27.9 adult CPS Med Review with Karla Clark MINUTE CLERK FOR BASIC TRAFFIC 04/23/2019 Last Documented On 9 4:01PM ; [facility] Acute pharyngitis Medical Established Patient wi th Brandy Kelley MINUTE CLERK FOR BASIC TRAFFIC 04/15/2019 Last Documented On 9 12:31PM ; [facility] Asthmatic bronchitis with ac [place] exacerbation Medical Established Patient with Brandy Warren MINUTE CLERK FOR BASIC TRAFFIC 04/15/2019 Last Documented On 9 12:31PM ; [facility] Fagerstrom Score was two Medical Established Pat ient with Brandy Warren MINUTE CLERK FOR BASIC TRAFFIC 04/15/2019 Last Documented On 9 12:31PM ; [facility] PHQ-9: total score was three 04/15/2019 Medical Established Patient with Brandy Warrne MINUTE CLERK FOR BASIC TRAFFIC 04/15/2019 Last Documented On 9 12:31PM ; [facility] Body mass index Medical Established Patient with Karla Clark MINUTE CLERK FOR BASIC TRAFFIC 03/05/2019 Last Documented On 9 10:27AM ; [facility] Diabetes Risk Test Score was three score Medical Established Patient with Karla Amber MINUTE CLERK FOR BASIC TRAFFIC 03/05/2019 Last Documented On 9 10:27AM ; [facility] Overweight Medical Established Patient with Karla Amber MINUTE CLERK FOR BASIC TRAFFIC 03/05/2019 Last Documented On 9 10:27AM ; [facility] Z68.28 - Body mass index (BM I) 28.0-28.9, adult Medical Established Patient with Karla Clark MINUTE CLERK FOR BASIC TRAFFIC 12/22/2018 Last Documented On 9 10:32AM ; [facility] Assess routine adult history and physical (18 - 64 yrs) Medical Established Patient with Karla Amber MINUTE CLERK FOR BASIC TRAFFIC 11/06/2018 Last Documented On 9 2:26PM ; [facility] Overweight Medical Established Patient with Karla Amber MINUTE CLERK FOR BASIC TRAFFIC 11/06/2018 Last Documented On 9 2:26PM ; [facility] Z68.28 - Body mass index (BM I) 28.0-28.9, adult Medical Established Patient with Karla Amber MINUTE CLERK FOR BASIC TRAFFIC 11/06/2018 Last Documented On 9 2:26PM ; [facility] Assess dysphagia Medical Established Patient wit h Karla Amber MINUTE CLERK FOR BASIC TRAFFIC 09/11/2018 Last Documented On 9 10:53AM ; [facility] Assess routine adult history and physical (18 - 64 yrs) Medical Established Patient with Karla Amber MINUTE CLERK FOR BASIC TRAFFIC 09/11/2018 Last Documented On 9 10:53AM ; [facility] Assess primary insomnia with sleep apnea Medical Established Patient with Karla Amber MINUTE CLERK FOR BASIC TRAFFIC 09/04/2018 Last Documented On 9 2:23PM ; [facility] Assess routine adult history and physical (18 - 64 yrs) Medical Established Patient with Karla Amber MINUTE CLERK FOR BASIC TRAFFIC 09/04/2018 Last Documented On 9 2:23PM ; [facility] Overweight Medical Established Patient with Karla Amber MINUTE CLERK FOR BASIC TRAFFIC 09/04/2018 Last Documented On 9 2:23PM ; [facility] Z68.29 - Body mass index (BM I) 29.0-29.9, adult Medical Established Patient with Karla Amber MINUTE CLERK FOR BASIC TRAFFIC 09/04/2018 Last Documented On 9 2:23PM ; [facility] Assess vaginal candidiasis Medical Estab lished Patient with Karla Amber MINUTE CLERK FOR BASIC TRAFFIC 07/31/2018 Last Documented On 9 2:12PM ; [facility] Work Phone: Evaluation note Includes: Assessments for all patient encounters Findings Encounter Date [Z12.39 - Encounter for othe r screening for malignant neoplasm of breast] visit for: screening for malignant breast neoplasm Medical Established Patient with Aaron Whitaker MINUTE CLERK FOR BASIC TRAFFIC 02/28/2023 Last Documented On 3 9:51AM ; [facility] [Z68.24 - Body mass index [B AZ] 24.0-24.9, adult] assessment of body mass index Medical Established Patient with Aaron Whitaker MINUTE CLERK FOR BASIC TRAFFIC 02/28/2023 Last Documented On 3 9:51AM ; [facility] Assessment of tobacco use Medical Establ ished Patient with Aaron Whitaker MINUTE CLERK FOR BASIC TRAFFIC 02/28/2023 Last Documented On 3 9:51AM ; [facility] Chronic obstructive pulmonary disease Me dical Established Patient with Aaron Whitaker MINUTE CLERK FOR BASIC TRAFFIC 02/28/2023 Last Documented On 3 9:51AM ; [facility] [J20.9 - Acute bronchitis, unspecified] acute bronchitis Medical Established Patient with Karla Clark MINUTE CLERK FOR BASIC TRAFFIC 11/19/2022 Last Documented On 3 10:15AM ; [facility] [M79.621 - Pain in right upp er arm] pain in upper arm Medical Established Patient with Karla Clark MINUTE CLERK FOR BASIC TRAFFIC 11/19/2022 Last Documented On 3 10:15AM ; [facility] [Z68.23 - Body mass index [B AZ] 23.0-23.9, adult] assessment of body mass index Medical Established Patient with Karla Clark MINUTE CLERK FOR BASIC TRAFFIC 11/19/2022 Last Documented On 3 10:15AM ; [facility] [M79.601 - Pain in right arm ] pain in right arm Medical Established Patient with Karla Clark MINUTE CLERK FOR BASIC TRAFFIC 09/18/2022 Last Documented On 3 2:33PM ; [facility] [Z68.24 - Body mass index [B AZ] 24.0-24.9, adult] assessment of body mass index Medical Established Patient with Karla Clark MINUTE CLERK FOR BASIC TRAFFIC 09/18/2022 Last Documented On 3 2:33PM ; [facility] Assessment of tobacco use Medical Establ ished Patient with Karla Clark MINUTE CLERK FOR BASIC TRAFFIC 09/18/2022 Last Documented On 3 2:33PM ; [facility] [M25.569 - Pain in unspecifi ed knee] arthralgia of knee / patella / tibia / fibula Medical Established Patient with Karla Clark CNP 08/27/2022 Last Documented On 3 9:20AM ; [facility] [Z68.24 - Body mass index [B AZ] 24.0-24.9, adult] assessment of body mass index Medical Established Patient with Karla Clark CNP 08/27/2022 Last Documented On 3 9:20AM ; [facility] Intervention and counseling on cessation of tobacco use, 3-10 minutes Discussed medication and nicotine replacement for tobacco cessation Medical Established Patient with Karla Clark MINUTE CLERK FOR BASIC TRAFFIC 08/27/2022 Last Documented On 3 9:20AM ; [facility] Nicotine dependence Medical Established Patient with Karla Clark MINUTE CLERK FOR BASIC TRAFFIC 08/27/2022 Last Documented On 3 9:20AM ; [facility] Visit for routine adult H&P without abnormal findings Medical Established Patient with Karla Clark CNP 08/27/2022 Last Documented On 3 9:20AM ; [facility] [H92.02 - Otalgia, left ear] earache Med ical Established Patient with Karla Clark MINUTE CLERK FOR BASIC TRAFFIC 06/18/2022 Last Documented On 3 12:11PM ; [facility] [M79.604 - Pain in right leg ] pain in right leg Medical Established Patient with Karla Clark MINUTE CLERK FOR BASIC TRAFFIC 06/18/2022 Last Documented On 3 12:11PM ; [facility] [Z68.24 - Body mass index [B AZ] 24.0-24.9, adult] assessment of body mass index Medical Established Patient with Karla Clark MINUTE CLERK FOR BASIC TRAFFIC 06/18/2022 Last Documented On 3 12:11PM ; [facility] Assessment of tobacco use Medical Establ ished Patient with Karla Clark MINUTE CLERK FOR BASIC TRAFFIC 06/18/2022 Last Documented On 3 12:11PM ; [facility] Diabetes Risk Test Score was four score 06/18/2022 Medical Established Patient with Karla Clark MINUTE CLERK FOR BASIC TRAFFIC 06/18/2022 Last Documented On 3 12:11PM ; [facility] Schizoaffective disorder Established Patient with Yin Feliz LPCC-S 03/20/2022 Last Documented On 2 12:13AM ; [facility] No cough Medical Established Patient with Karla Amber MINUTE CLERK FOR BASIC TRAFFIC 12/20/2021 Last Documented On 2 3:12PM ; [facility] Visit for: screening for hum an immunodeficiency virus Medical Established Patient with Karla Amber MINUTE CLERK FOR BASIC TRAFFIC 12/20/2021 Last Documented On 2 3:12PM ; [facility] Z68.24 - Body mass index [BM I] 24.0-24.9, adult Medical Established Patient with Karla Amber MINUTE CLERK FOR BASIC TRAFFIC 12/20/2021 Last Documented On 2 3:12PM ; [facility] Bipolar disorder NOS BH Established Patient with Yin Feliz LPCC-S 11/03/2021 Last Documented On 2 7:00PM ; [facility] Bipolar schizoaffective disorder BH Esta blished Patient with Yin Feliz LPCC-S 11/03/2021 Last Documented On 2 7:00PM ; [facility] PLAN Medical Established Patient with Don Pino MD 11/03/2021 Last Documented On 2 10:40AM ; [facility] Abnormal electrocardiogram Medical Estab lished Patient with Don Pino MD 11/03/2021 Last Documented On 2 10:40AM ; [facility] Z68.24 - Body mass index [BM I] 24.0-24.9, adult Medical Established Patient with Don Pino MD 11/03/2021 Last Documented On 2 10:40AM ; [facility] Cough Medical Established Patient with Karla Amber MINUTE CLERK FOR BASIC TRAFFIC 07/28/2021 Last Documented On 2 2:01PM ; [facility] Intervention and counseling on cessation of tobacco use, 3-10 minutes Discussed medication and nicotine replacement for tobacco cessation Medical Established Patient with Karla Amber MINUTE CLERK FOR BASIC TRAFFIC 07/28/2021 Last Documented On 2 2:01PM ; [facility] Nicotine dependence Medical Established Patient with Karla Amber MINUTE CLERK FOR BASIC TRAFFIC 07/28/2021 Last Documented On 2 2:01PM ; [facility] Z68.24 - Body mass index [BM I] 24.0-24.9, adult Medical Established Patient with Karla Amber MINUTE CLERK FOR BASIC TRAFFIC 07/28/2021 Last Documented On 2 2:01PM ; [facility] Assess Colon screening Medical Established Patie nt with Karla Amber MINUTE CLERK FOR BASIC TRAFFIC 05/08/2021 Last Documented On 1 10:59AM ; [facility] Diabetes Risk Test Score was four score 05/08/2021 Medical Established Patient with Karla Amber MINUTE CLERK FOR BASIC TRAFFIC 05/08/2021 Last Documented On 1 10:59AM ; [facility] Routine adult history and ph ysical (18-64 yrs) without abnormal findings Medical Established Patient with Karla Amber MINUTE CLERK FOR BASIC TRAFFIC 05/08/2021 Last Documented On 1 10:59AM ; [facility] Z68.24 - Body mass index [BM I] 24.0-24.9, adult Medical Established Patient with Karla Amber MINUTE CLERK FOR BASIC TRAFFIC 05/08/2021 Last Documented On 1 10:59AM ; [facility] Z68.24 - Body mass index [BM I] 24.0-24.9, adult Medical Established Patient with Karla Amber MINUTE CLERK FOR BASIC TRAFFIC 06/17/2020 Last Documented On 1 10:30AM ; [facility] Overweight Medical Established Patient with Karla Amber MINUTE CLERK FOR BASIC TRAFFIC 06/06/2020 Last Documented On 1 2:06PM ; [facility] Z68.25 - Body mass index [BM I] 25.0-25.9, adult Medical Established Patient with Karla Amber MINUTE CLERK FOR BASIC TRAFFIC 06/06/2020 Last Documented On 1 2:06PM ; [facility] Antiasthmatics [facility] Asthma Clinic-New with Karla Amber MINUTE CLERK FOR BASIC TRAFFIC 05/06/2020 Last Documented On 0 7:27PM ; [facility] Assessment of tobacco use [facility] Asthma Clinic-New with Karla Amber MINUTE CLERK FOR BASIC TRAFFIC 05/06/2020 Last Documented On 0 7:27PM ; [facility] Body mass index [facility] Asthma Clinic-New with Karla Amber MINUTE CLERK FOR BASIC TRAFFIC 05/06/2020 Last Documented On 0 7:27PM ; [facility] Chronic obstructive pulmonary disease CP S Ast[facility] Clinic-New with Karla Amber MINUTE CLERK FOR BASIC TRAFFIC 05/06/2020 Last Documented On 0 7:27PM ; [facility] Overweight CPS [facility] Clinic-New with Karla Floresen MINUTE CLERK FOR BASIC TRAFFIC 05/06/2020 Last Documented On 0 7:27PM ; [facility] Z11.4 - Encounter for screen ing for human immunodeficiency virus [HIV] CPS Ast[facility] Clinic-New with Karlajulius Floresen MINUTE CLERK FOR BASIC TRAFFIC 05/06/2020 Last Documented On 0 7:27PM ; [facility] Diabetes Risk Test Score was three score 03/31/2020 Medical Established Patient with Karlajulius Floresen MINUTE CLERK FOR BASIC TRAFFIC 03/31/2020 Last Documented On 0 3:22PM ; [facility] Overweight Medical Established Patient with Karlajulius Floresen MINUTE CLERK FOR BASIC TRAFFIC 03/31/2020 Last Documented On 0 3:22PM ; [facility] Z68.25 - Body mass index [BM I] 25.0-25.9, adult Medical Established Patient with Karla Floresen MINUTE CLERK FOR BASIC TRAFFIC 03/31/2020 Last Documented On 0 3:22PM ; [facility] Encounter for Immunization Nurse Visit with Gary Clark MINUTE CLERK FOR BASIC TRAFFIC 03/14/2020 Last Documented On 0 5:11PM ; [facility] Body mass index Medical Established Patient with Karla Floresen MINUTE CLERK FOR BASIC TRAFFIC 02/26/2020 Last Documented On 0 1:18PM ; [facility] Overweight Medical Established Patient with Karla Amber MINUTE CLERK FOR BASIC TRAFFIC 02/26/2020 Last Documented On 0 1:18PM ; [facility] Overweight Medical Established Patient with Karlajulius Floresen MINUTE CLERK FOR BASIC TRAFFIC 07/23/2019 Last Documented On 0 2:33PM ; [facility] Z68.27 - Body mass index (BM I) 27.0-27.9, adult Medical Established Patient with Karlajulius Floresen MINUTE CLERK FOR BASIC TRAFFIC 07/23/2019 Last Documented On 0 2:33PM ; [facility] Occasional asthma CPS- Asthma Clinic- F/U with A french Clark MINUTE CLERK FOR BASIC TRAFFIC 06/05/2019 Last Documented On 0 7:04PM ; [facility] Overweight CPS- [facility] Clinic- F/U with Aim julius Clark MINUTE CLERK FOR BASIC TRAFFIC 06/05/2019 Last Documented On 0 7:04PM ; [facility] Z68.27 - Body mass index (BM I) 27.0-27.9 adult CPS- Asthma Clinic- F/U with Karla Floresen MINUTE CLERK FOR BASIC TRAFFIC 06/05/2019 Last Documented On 0 7:04PM ; [facility] Occasional asthma CPS Med Review with Karla Flores allegra MINUTE CLERK FOR BASIC TRAFFIC 04/23/2019 Last Documented On 9 4:01PM ; [facility] Overweight CPS Med Review with Karla Floresen MINUTE CLERK FOR BASIC TRAFFIC 04/23/2019 Last Documented On 9 4:01PM ; [facility] Z68.27 - Body mass index (BM I) 27.0-27.9 adult CPS Med Review with Karla Floresen MINUTE CLERK FOR BASIC TRAFFIC 04/23/2019 Last Documented On 9 4:01PM ; [facility] Acute pharyngitis Medical Established Patient wi th Brandy Serranoer MINUTE CLERK FOR BASIC TRAFFIC 04/15/2019 Last Documented On 9 12:31PM ; [facility] Asthmatic bronchitis with ac [place] exacerbation Medical Established Patient with Brandy Warren MINUTE CLERK FOR BASIC TRAFFIC 04/15/2019 Last Documented On 9 12:31PM ; [facility] Fagerstrom Score was two Medical Established Pat ient with Brandy Warren MINUTE CLERK FOR BASIC TRAFFIC 04/15/2019 Last Documented On 9 12:31PM ; [facility] PHQ-9: total score was three 04/15/2019 Medical Established Patient with Brandy Warren MINUTE CLERK FOR BASIC TRAFFIC 04/15/2019 Last Documented On 9 12:31PM ; [facility] Body mass index Medical Established Patient with Karla Amber MINUTE CLERK FOR BASIC TRAFFIC 03/05/2019 Last Documented On 9 10:27AM ; [facility] Diabetes Risk Test Score was three score Medical Established Patient with Karla Amber MINUTE CLERK FOR BASIC TRAFFIC 03/05/2019 Last Documented On 9 10:27AM ; [facility] Overweight Medical Established Patient with Karla Amber MINUTE CLERK FOR BASIC TRAFFIC 03/05/2019 Last Documented On 9 10:27AM ; [facility] Z68.28 - Body mass index (BM I) 28.0-28.9, adult Medical Established Patient with Karla Amber MINUTE CLERK FOR BASIC TRAFFIC 12/22/2018 Last Documented On 9 10:32AM ; [facility] Assess routine adult history and physical (18 - 64 yrs) Medical Established Patient with Karla Amber MINUTE CLERK FOR BASIC TRAFFIC 11/06/2018 Last Documented On 9 2:26PM ; [facility] Overweight Medical Established Patient with Karla Amber MINUTE CLERK FOR BASIC TRAFFIC 11/06/2018 Last Documented On 9 2:26PM ; [facility] Z68.28 - Body mass index (BM I) 28.0-28.9, adult Medical Established Patient with Karla Amber MINUTE CLERK FOR BASIC TRAFFIC 11/06/2018 Last Documented On 9 2:26PM ; [facility] Assess dysphagia Medical Established Patient wit h Karla Amber MINUTE CLERK FOR BASIC TRAFFIC 09/11/2018 Last Documented On 9 10:53AM ; [facility] Assess routine adult history and physical (18 - 64 yrs) Medical Established Patient with Karla Amber MINUTE CLERK FOR BASIC TRAFFIC 09/11/2018 Last Documented On 9 10:53AM ; [facility] Assess primary insomnia with sleep apnea Medical Established Patient with Karla Amber MINUTE CLERK FOR BASIC TRAFFIC 09/04/2018 Last Documented On 9 2:23PM ; [facility] Assess routine adult history and physical (18 - 64 yrs) Medical Established Patient with Karla Amber MINUTE CLERK FOR BASIC TRAFFIC 09/04/2018 Last Documented On 9 2:23PM ; [facility] Overweight Medical Established Patient with Karla Amber MINUTE CLERK FOR BASIC TRAFFIC 09/04/2018 Last Documented On 9 2:23PM ; [facility] Z68.29 - Body mass index (BM I) 29.0-29.9, adult Medical Established Patient with Karla Amber MINUTE CLERK FOR BASIC TRAFFIC 09/04/2018 Last Documented On 9 2:23PM ; [facility] Assess vaginal candidiasis Medical Estab lished Patient with Karla Amber MINUTE CLERK FOR BASIC TRAFFIC 07/31/2018 Last Documented On 9 2:12PM ; [facility] Work Phone: Evaluation note* Diagnosis Onset Date Resolution Status Abdominal pain acute Flank pain acute Hypertension acute Prolonged Q-T interval on ECG acute Schizoaffective disorder [facility] Work Phone: Evaluation note Includes: Assessments for all patient encounters Findings Encounter Date [R30.0 - Dysuria] Dysuria Chart Update with Gary Clark MINUTE CLERK FOR BASIC TRAFFIC 03/21/2023 Last Documented On 3 11:27AM ; [facility] [Z12.39 - Encounter for othe r screening for malignant neoplasm of breast] visit for: screening for malignant breast neoplasm Medical Established Patient with Aaron Whitaker MINUTE CLERK FOR BASIC TRAFFIC 02/28/2023 Last Documented On 3 9:51AM ; [facility] [Z68.24 - Body mass index [B AZ] 24.0-24.9, adult] assessment of body mass index Medical Established Patient with Aaron Whitaker MINUTE CLERK FOR BASIC TRAFFIC 02/28/2023 Last Documented On 3 9:51AM ; [facility] Assessment of tobacco use Medical Establ ished Patient with Aaron Whitaker MINUTE CLERK FOR BASIC TRAFFIC 02/28/2023 Last Documented On 3 9:51AM ; [facility] Chronic obstructive pulmonary disease Me dical Established Patient with Aaron Whitaker MINUTE CLERK FOR BASIC TRAFFIC 02/28/2023 Last Documented On 3 9:51AM ; [facility] [J20.9 - Acute bronchitis, unspecified] acute bronchitis Medical Established Patient with Karla Clark MINUTE CLERK FOR BASIC TRAFFIC 11/19/2022 Last Documented On 3 10:15AM ; [facility] [M79.621 - Pain in right upp er arm] pain in upper arm Medical Established Patient with Karla Clark MINUTE CLERK FOR BASIC TRAFFIC 11/19/2022 Last Documented On 3 10:15AM ; [facility] [Z68.23 - Body mass index [B AZ] 23.0-23.9, adult] assessment of body mass index Medical Established Patient with Karla Clark MINUTE CLERK FOR BASIC TRAFFIC 11/19/2022 Last Documented On 3 10:15AM ; [facility] [M79.601 - Pain in right arm ] pain in right arm Medical Established Patient with Karla Clark CNP 09/18/2022 Last Documented On 3 2:33PM ; [facility] [Z68.24 - Body mass index [B AZ] 24.0-24.9, adult] assessment of body mass index Medical Established Patient with Karla Clark MINUTE CLERK FOR BASIC TRAFFIC 09/18/2022 Last Documented On 3 2:33PM ; [facility] Assessment of tobacco use Medical Establ ished Patient with Karla Clark MINUTE CLERK FOR BASIC TRAFFIC 09/18/2022 Last Documented On 3 2:33PM ; [facility] [M25.569 - Pain in unspecifi ed knee] arthralgia of knee / patella / tibia / fibula Medical Established Patient with Karla Clark MINUTE CLERK FOR BASIC TRAFFIC 08/27/2022 Last Documented On 3 9:20AM ; [facility] [Z68.24 - Body mass index [B AZ] 24.0-24.9, adult] assessment of body mass index Medical Established Patient with Karla Clark MINUTE CLERK FOR BASIC TRAFFIC 08/27/2022 Last Documented On 3 9:20AM ; [facility] Intervention and counseling on cessation of tobacco use, 3-10 minutes Discussed medication and nicotine replacement for tobacco cessation Medical Established Patient with Karla Clark CNP 08/27/2022 Last Documented On 3 9:20AM ; [facility] Nicotine dependence Medical Established Patient with Karla Clark MINUTE CLERK FOR BASIC TRAFFIC 08/27/2022 Last Documented On 3 9:20AM ; [facility] Visit for routine adult H&P without abnormal findings Medical Established Patient with Karla Clark MINUTE CLERK FOR BASIC TRAFFIC 08/27/2022 Last Documented On 3 9:20AM ; [facility] [H92.02 - Otalgia, left ear] earache Med ical Established Patient with Karla Clark MINUTE CLERK FOR BASIC TRAFFIC 06/18/2022 Last Documented On 3 12:11PM ; [facility] [M79.604 - Pain in right leg ] pain in right leg Medical Established Patient with Karla Clark MINUTE CLERK FOR BASIC TRAFFIC 06/18/2022 Last Documented On 3 12:11PM ; [facility] [Z68.24 - Body mass index [B AZ] 24.0-24.9, adult] assessment of body mass index Medical Established Patient with Karla Clark MINUTE CLERK FOR BASIC TRAFFIC 06/18/2022 Last Documented On 3 12:11PM ; [facility] Assessment of tobacco use Medical Establ ished Patient with Karla Clark MINUTE CLERK FOR BASIC TRAFFIC 06/18/2022 Last Documented On 3 12:11PM ; [facility] Diabetes Risk Test Score was four score 06/18/2022 Medical Established Patient with Karla Clark MINUTE CLERK FOR BASIC TRAFFIC 06/18/2022 Last Documented On 3 12:11PM ; [facility] Schizoaffective disorder Established Patient with Yin Feliz LPCC-S 03/20/2022 Last Documented On 2 12:13AM ; [facility] No cough Medical Established Patient with Karla Clark MINUTE CLERK FOR BASIC TRAFFIC 12/20/2021 Last Documented On 2 3:12PM ; [facility] Visit for: screening for hum an immunodeficiency virus Medical Established Patient with Karla Clark MINUTE CLERK FOR BASIC TRAFFIC 12/20/2021 Last Documented On 2 3:12PM ; [facility] Z68.24 - Body mass index [BM I] 24.0-24.9, adult Medical Established Patient with Karla Clark MINUTE CLERK FOR BASIC TRAFFIC 12/20/2021 Last Documented On 2 3:12PM ; [facility] Bipolar disorder NOS BH Established Patient with Yin Feliz LPCC-S 11/03/2021 Last Documented On 2 7:00PM ; [facility] Bipolar schizoaffective disorder BH Esta blished Patient with Yin Feliz LPCC-S 11/03/2021 Last Documented On 2 7:00PM ; [facility] PLAN Medical Established Patient with Don Pino MD 11/03/2021 Last Documented On 2 10:40AM ; [facility] Abnormal electrocardiogram Medical Estab lished Patient with Don Pino MD 11/03/2021 Last Documented On 2 10:40AM ; [facility] Z68.24 - Body mass index [BM I] 24.0-24.9, adult Medical Established Patient with Don Pino MD 11/03/2021 Last Documented On 2 10:40AM ; [facility] Cough Medical Established Patient with Karlajulius Floresen MINUTE CLERK FOR BASIC TRAFFIC 07/28/2021 Last Documented On 2 2:01PM ; [facility] Intervention and counseling on cessation of tobacco use, 3-10 minutes Discussed medication and nicotine replacement for tobacco cessation Medical Established Patient with Karla Amber MINUTE CLERK FOR BASIC TRAFFIC 07/28/2021 Last Documented On 2 2:01PM ; [facility] Nicotine dependence Medical Established Patient with Karla Amber MINUTE CLERK FOR BASIC TRAFFIC 07/28/2021 Last Documented On 2 2:01PM ; [facility] Z68.24 - Body mass index [BM I] 24.0-24.9, adult Medical Established Patient with Karla Amber MINUTE CLERK FOR BASIC TRAFFIC 07/28/2021 Last Documented On 2 2:01PM ; [facility] Assess Colon screening Medical Established Patie nt with Karla Amber MINUTE CLERK FOR BASIC TRAFFIC 05/08/2021 Last Documented On 1 10:59AM ; [facility] Diabetes Risk Test Score was four score 05/08/2021 Medical Established Patient with Karla Amber MINUTE CLERK FOR BASIC TRAFFIC 05/08/2021 Last Documented On 1 10:59AM ; [facility] Routine adult history and ph ysical (18-64 yrs) without abnormal findings Medical Established Patient with Karla Amber MINUTE CLERK FOR BASIC TRAFFIC 05/08/2021 Last Documented On 1 10:59AM ; [facility] Z68.24 - Body mass index [BM I] 24.0-24.9, adult Medical Established Patient with Karla Amber MINUTE CLERK FOR BASIC TRAFFIC 05/08/2021 Last Documented On 1 10:59AM ; [facility] Z68.24 - Body mass index [BM I] 24.0-24.9, adult Medical Established Patient with Karla Amber MINUTE CLERK FOR BASIC TRAFFIC 06/17/2020 Last Documented On 1 10:30AM ; [facility] Overweight Medical Established Patient with Karla Amber MINUTE CLERK FOR BASIC TRAFFIC 06/06/2020 Last Documented On 1 2:06PM ; [facility] Z68.25 - Body mass index [BM I] 25.0-25.9, adult Medical Established Patient with Karla Clark MINUTE CLERK FOR BASIC TRAFFIC 06/06/2020 Last Documented On 1 2:06PM ; [facility] Antiasthmatics [facility] Asthma Clinic-New with Karla Amber MINUTE CLERK FOR BASIC TRAFFIC 05/06/2020 Last Documented On 0 7:27PM ; [facility] Assessment of tobacco use [facility] Asthma Clinic-New with Karla Amber MINUTE CLERK FOR BASIC TRAFFIC 05/06/2020 Last Documented On 0 7:27PM ; [facility] Body mass index [facility] Asthma Clinic-New with Karla Amber MINUTE CLERK FOR BASIC TRAFFIC 05/06/2020 Last Documented On 0 7:27PM ; [facility] Chronic obstructive pulmonary disease S Asthma Clinic-New with Karla Amber MINUTE CLERK FOR BASIC TRAFFIC 05/06/2020 Last Documented On 0 7:27PM ; [facility] Overweight [facility] Asthma Clinic-New with Karlajulius Floresen [facility] 05/06/2020 Last Documented On 0 7:27PM ; [facility] Z11.4 - Encounter for screen ing for human immunodeficiency virus [HIV] [facility] Asthma Clinic-New with Karlajulius Floresen MINUTE CLERK FOR BASIC TRAFFIC 05/06/2020 Last Documented On 0 7:27PM ; [facility] Diabetes Risk Test Score was three score 03/31/2020 Medical Established Patient with Karla Clark MINUTE CLERK FOR BASIC TRAFFIC 03/31/2020 Last Documented On 0 3:22PM ; [facility] Overweight Medical Established Patient with Karla Amber MINUTE CLERK FOR BASIC TRAFFIC 03/31/2020 Last Documented On 0 3:22PM ; [facility] Z68.25 - Body mass index [BM I] 25.0-25.9, adult Medical Established Patient with Karlajulius Floresen MINUTE CLERK FOR BASIC TRAFFIC 03/31/2020 Last Documented On 0 3:22PM ; [facility] Encounter for Immunization Nurse Visit with Gary Clark MINUTE CLERK FOR BASIC TRAFFIC 03/14/2020 Last Documented On 0 5:11PM ; [facility] Body mass index Medical Established Patient with Karla Floresen MINUTE CLERK FOR BASIC TRAFFIC 02/26/2020 Last Documented On 0 1:18PM ; [facility] Overweight Medical Established Patient with Karla Amber MINUTE CLERK FOR BASIC TRAFFIC 02/26/2020 Last Documented On 0 1:18PM ; [facility] Overweight Medical Established Patient with Karla Amber MINUTE CLERK FOR BASIC TRAFFIC 07/23/2019 Last Documented On 0 2:33PM ; [facility] Z68.27 - Body mass index (BM I) 27.0-27.9, adult Medical Established Patient with Karlajulius Floresen MINUTE CLERK FOR BASIC TRAFFIC 07/23/2019 Last Documented On 0 2:33PM ; [facility] Occasional asthma CPS- Asthma Clinic- F/U with A imjulius Floresen MINUTE CLERK FOR BASIC TRAFFIC 06/05/2019 Last Documented On 0 7:04PM ; [facility] Overweight CPS- Asthma Clinic- F/U with Aim julius Floresen MINUTE CLERK FOR BASIC TRAFFIC 06/05/2019 Last Documented On 0 7:04PM ; [facility] Z68.27 - Body mass index (BM I) 27.0-27.9 adult CPS- Asthma Clinic- F/U with Karlajulius Floresen MINUTE CLERK FOR BASIC TRAFFIC 06/05/2019 Last Documented On 0 7:04PM ; [facility] Occasional asthma CPS Med Review with Karla Sandra en MINUTE CLERK FOR BASIC TRAFFIC 04/23/2019 Last Documented On 9 4:01PM ; [facility] Overweight CPS Med Review with Karla Amber MINUTE CLERK FOR BASIC TRAFFIC 04/23/2019 Last Documented On 9 4:01PM ; [facility] Z68.27 - Body mass index (BM I) 27.0-27.9 adult CPS Med Review with Karla Amber MINUTE CLERK FOR BASIC TRAFFIC 04/23/2019 Last Documented On 9 4:01PM ; [facility] Acute pharyngitis Medical Established Patient wi th Brandy Kelley MINUTE CLERK FOR BASIC TRAFFIC 04/15/2019 Last Documented On 9 12:31PM ; [facility] Asthmatic bronchitis with ac [place] exacerbation Medical Established Patient with Brandy Warren MINUTE CLERK FOR BASIC TRAFFIC 04/15/2019 Last Documented On 9 12:31PM ; [facility] Fagerstrom Score was two Medical Established Pat ient with Brandy Warren MINUTE CLERK FOR BASIC TRAFFIC 04/15/2019 Last Documented On 9 12:31PM ; [facility] PHQ-9: total score was three 04/15/2019 Medical Established Patient with Brandy Kelley MINUTE CLERK FOR BASIC TRAFFIC 04/15/2019 Last Documented On 9 12:31PM ; [facility] Body mass index Medical Established Patient with Karlajulius Floresen MINUTE CLERK FOR BASIC TRAFFIC 03/05/2019 Last Documented On 9 10:27AM ; [facility] Diabetes Risk Test Score was three score Medical Established Patient with Karla Amber MINUTE CLERK FOR BASIC TRAFFIC 03/05/2019 Last Documented On 9 10:27AM ; [facility] Overweight Medical Established Patient with Karla Amber MINUTE CLERK FOR BASIC TRAFFIC 03/05/2019 Last Documented On 9 10:27AM ; [facility] Z68.28 - Body mass index (BM I) 28.0-28.9, adult Medical Established Patient with Karla Amber MINUTE CLERK FOR BASIC TRAFFIC 12/22/2018 Last Documented On 9 10:32AM ; [facility] Assess routine adult history and physical (18 - 64 yrs) Medical Established Patient with Karla Amber MINUTE CLERK FOR BASIC TRAFFIC 11/06/2018 Last Documented On 9 2:26PM ; [facility] Overweight Medical Established Patient with Karla Amber MINUTE CLERK FOR BASIC TRAFFIC 11/06/2018 Last Documented On 9 2:26PM ; [facility] Z68.28 - Body mass index (BM I) 28.0-28.9, adult Medical Established Patient with Karla Amber MINUTE CLERK FOR BASIC TRAFFIC 11/06/2018 Last Documented On 9 2:26PM ; [facility] Assess dysphagia Medical Established Patient wit h Karla Amber MINUTE CLERK FOR BASIC TRAFFIC 09/11/2018 Last Documented On 9 10:53AM ; [facility] Assess routine adult history and physical (18 - 64 yrs) Medical Established Patient with Karla Amber MINUTE CLERK FOR BASIC TRAFFIC 09/11/2018 Last Documented On 9 10:53AM ; [facility] Assess primary insomnia with sleep apnea Medical Established Patient with Karla Amber MINUTE CLERK FOR BASIC TRAFFIC 09/04/2018 Last Documented On 9 2:23PM ; [facility] Assess routine adult history and physical (18 - 64 yrs) Medical Established Patient with Karla Amber MINUTE CLERK FOR BASIC TRAFFIC 09/04/2018 Last Documented On 9 2:23PM ; [facility] Overweight Medical Established Patient with Karla Clark MINUTE CLERK FOR BASIC TRAFFIC 09/04/2018 Last Documented On 9 2:23PM ; [facility] Z68.29 - Body mass index (BM I) 29.0-29.9, adult Medical Established Patient with Karla Clark MINUTE CLERK FOR BASIC TRAFFIC 09/04/2018 Last Documented On 9 2:23PM ; [facility] Assess vaginal candidiasis Medical Estab lished Patient with Karla Clark MINUTE CLERK FOR BASIC TRAFFIC 07/31/2018 Last Documented On 9 2:12PM ; [facility] Work Phone: Evaluation note* Diagnosis Onset Date Resolution Status Abdominal pain acute Flank pain acute Hypertension acute Prolonged Q-T interval on ECG acute Schizoaffective disorder acu te Abdominal pain acute MYESHA (acute kidney injury) ac [place] Flank pain acute Nausea & vomiting acute Schizoaffective disorder acu [facility] Work Phone: Evaluation note* Diagnosis Neoplasm of unspecified behavior of bone, soft tissue, and skin- Primary documented [facility] Diagnosis Onset Date Resolution Status Acute psychosis acute Chronic schizophrenia acute [facility] Work Phone: Evaluation note* Diagnosis Onset Date Resolution Status Acute psychosis acute Chronic schizophrenia acute Schizoaffective disorder acu [facility] Work Phone: Evaluation note* Diagnosis Nontoxic multinodular goiter- Primary Thyroid nodule Nontoxic uninodular goiter [facility]: Ass[facility]ments for all patient encounters Findings Encounter Date [R26.89 - Other abnormalitie s of gait and mobility] staggering gait Chart Update with Karla Clark CNP 11/15/2023 Last Documented On 4 12:07PM ; [facility] [F17.210 - Nicotine dependen ce, cigarettes, uncomplicated] continuous dependence on cigarette smoking Medical Established Patient with Karla Clark MINUTE CLERK FOR BASIC TRAFFIC 10/04/2023 Last Documented On 4 6:30PM ; [facility] [Z12.11 - Encounter for scre ening for malignant neoplasm of colon] Colon screening Medical Established Patient with Karla Clark MINUTE CLERK FOR BASIC TRAFFIC 10/04/2023 Last Documented On 4 6:30PM ; [facility] [Z68.25 - Body mass index [B AZ] 25.0-25.9, adult] assessment of body mass index Medical Established Patient with Karla Clark MINUTE CLERK FOR BASIC TRAFFIC 10/04/2023 Last Documented On 4 6:30PM ; [facility] Diabetes Risk Test Score was five score 10/04/2023 Medical Established Patient with Karla Clark MINUTE CLERK FOR BASIC TRAFFIC 10/04/2023 Last Documented On 4 6:30PM ; [facility] Encounter for Immunization Medical Estab lished Patient with Karla Clark MINUTE CLERK FOR BASIC TRAFFIC 10/04/2023 Last Documented On 4 6:30PM ; [facility] [D48.5 - Neoplasm of uncerta in behavior of skin] skin neoplasm of uncertain behavior Medical Established Patient with Karla Clark MINUTE CLERK FOR BASIC TRAFFIC 05/22/2023 Last Documented On 3 1:30PM ; [facility] [Z68.24 - Body mass index [B AZ] 24.0-24.9, adult] assessment of body mass index Medical Established Patient with Karla Clark MINUTE CLERK FOR BASIC TRAFFIC 05/22/2023 Last Documented On 3 1:30PM ; [facility] Assessment of tobacco use Medical Establ ished Patient with Karla Clark MINUTE CLERK FOR BASIC TRAFFIC 05/22/2023 Last Documented On 3 1:30PM ; [facility] [R30.0 - Dysuria] Dysuria Chart Update with Gary Clark MINUTE CLERK FOR BASIC TRAFFIC 03/21/2023 Last Documented On 3 11:27AM ; [facility] [Z12.39 - Encounter for othe r screening for malignant neoplasm of breast] visit for: screening for malignant breast neoplasm Medical Established Patient with Aaron Whitaker MINUTE CLERK FOR BASIC TRAFFIC 02/28/2023 Last Documented On 3 9:51AM ; [facility] [Z68.24 - Body mass index [B AZ] 24.0-24.9, adult] assessment of body mass index Medical Established Patient with Aaron Whitaker MINUTE CLERK FOR BASIC TRAFFIC 02/28/2023 Last Documented On 3 9:51AM ; [facility] Assessment of tobacco use Medical Establ ished Patient with Aaron Whitaker MINUTE CLERK FOR BASIC TRAFFIC 02/28/2023 Last Documented On 3 9:51AM ; [facility] Chronic obstructive pulmonary disease Me dical Established Patient with Aaron Whitaker MINUTE CLERK FOR BASIC TRAFFIC 02/28/2023 Last Documented On 3 9:51AM ; [facility] [J20.9 - Acute bronchitis, unspecified] acute bronchitis Medical Established Patient with Karla Clark MINUTE CLERK FOR BASIC TRAFFIC 11/19/2022 Last Documented On 3 10:15AM ; [facility] [M79.621 - Pain in right upp er arm] pain in upper arm Medical Established Patient with Karla Clark MINUTE CLERK FOR BASIC TRAFFIC 11/19/2022 Last Documented On 3 10:15AM ; [facility] [Z68.23 - Body mass index [B AZ] 23.0-23.9, adult] assessment of body mass index Medical Established Patient with Karla Clark MINUTE CLERK FOR BASIC TRAFFIC 11/19/2022 Last Documented On 3 10:15AM ; [facility] [M79.601 - Pain in right arm ] pain in right arm Medical Established Patient with Karla Clark MINUTE CLERK FOR BASIC TRAFFIC 09/18/2022 Last Documented On 3 2:33PM ; [facility] [Z68.24 - Body mass index [B AZ] 24.0-24.9, adult] assessment of body mass index Medical Established Patient with Karla Clark MINUTE CLERK FOR BASIC TRAFFIC 09/18/2022 Last Documented On 3 2:33PM ; [facility] Assessment of tobacco use Medical Establ ished Patient with Karla Clark MINUTE CLERK FOR BASIC TRAFFIC 09/18/2022 Last Documented On 3 2:33PM ; [facility] [M25.569 - Pain in unspecifi ed knee] arthralgia of knee / patella / tibia / fibula Medical Established Patient with Karla Clark MINUTE CLERK FOR BASIC TRAFFIC 08/27/2022 Last Documented On 3 9:20AM ; [facility] [Z68.24 - Body mass index [B AZ] 24.0-24.9, adult] assessment of body mass index Medical Established Patient with Karla Clark MINUTE CLERK FOR BASIC TRAFFIC 08/27/2022 Last Documented On 3 9:20AM ; [facility] Intervention and counseling on cessation of tobacco use, 3-10 minutes Discussed medication and nicotine replacement for tobacco cessation Medical Established Patient with Karla Clark MINUTE CLERK FOR BASIC TRAFFIC 08/27/2022 Last Documented On 3 9:20AM ; [facility] Nicotine dependence Medical Established Patient with Karlajulius Clark MINUTE CLERK FOR BASIC TRAFFIC 08/27/2022 Last Documented On 3 9:20AM ; [facility] Visit for routine adult H&P without abnormal findings Medical Established Patient with Karla Clark MINUTE CLERK FOR BASIC TRAFFIC 08/27/2022 Last Documented On 3 9:20AM ; [facility] [H92.02 - Otalgia, left ear] earache Med ical Established Patient with Karla Clark MINUTE CLERK FOR BASIC TRAFFIC 06/18/2022 Last Documented On 3 12:11PM ; [facility] [M79.604 - Pain in right leg ] pain in right leg Medical Established Patient with Karla Clark MINUTE CLERK FOR BASIC TRAFFIC 06/18/2022 Last Documented On 3 12:11PM ; [facility] [Z68.24 - Body mass index [B AZ] 24.0-24.9, adult] assessment of body mass index Medical Established Patient with Karla Clark MINUTE CLERK FOR BASIC TRAFFIC 06/18/2022 Last Documented On 3 12:11PM ; [facility] Assessment of tobacco use Medical Establ ished Patient with Karla Clark MINUTE CLERK FOR BASIC TRAFFIC 06/18/2022 Last Documented On 3 12:11PM ; [facility] Diabetes Risk Test Score was four score 06/18/2022 Medical Established Patient with Karla Clark MINUTE CLERK FOR BASIC TRAFFIC 06/18/2022 Last Documented On 3 12:11PM ; [facility] Schizoaffective disorder BH Established Patient with Yin Feliz [facility] 03/20/2022 Last Documented On 2 12:13AM ; [facility] No cough Medical Established Patient with Karla Clark MINUTE CLERK FOR BASIC TRAFFIC 12/20/2021 Last Documented On 2 3:12PM ; [facility] Visit for: screening for hum an immunodeficiency virus Medical Established Patient with Karla Clark MINUTE CLERK FOR BASIC TRAFFIC 12/20/2021 Last Documented On 2 3:12PM ; [facility] Z68.24 - Body mass index [BM I] 24.0-24.9, adult Medical Established Patient with Karla Clark MINUTE CLERK FOR BASIC TRAFFIC 12/20/2021 Last Documented On 2 3:12PM ; [facility] Bipolar disorder NOS BH Established Patient with Yin Feliz [facility] 11/03/2021 Last Documented On 2 7:00PM ; [facility] Bipolar schizoaffective disorder BH Esta blished Patient with Yin Feliz [facility] 11/03/2021 Last Documented On 2 7:00PM ; [facility] PLAN Medical Established Patient with Don Pino MD 11/03/2021 Last Documented On 2 10:40AM ; [facility] Abnormal electrocardiogram Medical Estab lished Patient with Don Pino MD 11/03/2021 Last Documented On 2 10:40AM ; [facility] Z68.24 - Body mass index [BM I] 24.0-24.9, adult Medical Established Patient with Don Pino MD 11/03/2021 Last Documented On 2 10:40AM ; [facility] Cough Medical Established Patient with Karla Clark MINUTE CLERK FOR BASIC TRAFFIC 07/28/2021 Last Documented On 2 2:01PM ; [facility] Intervention and counseling on cessation of tobacco use, 3-10 minutes Discussed medication and nicotine replacement for tobacco cessation Medical Established Patient with Karla Amber MINUTE CLERK FOR BASIC TRAFFIC 07/28/2021 Last Documented On 2 2:01PM ; [facility] Nicotine dependence Medical Established Patient with Karla Amber MINUTE CLERK FOR BASIC TRAFFIC 07/28/2021 Last Documented On 2 2:01PM ; [facility] Z68.24 - Body mass index [BM I] 24.0-24.9, adult Medical Established Patient with Karlajulius Clark MINUTE CLERK FOR BASIC TRAFFIC 07/28/2021 Last Documented On 2 2:01PM ; [facility] Assess Colon screening Medical Established Patie nt with Karla Amber MINUTE CLERK FOR BASIC TRAFFIC 05/08/2021 Last Documented On 1 10:59AM ; [facility] Diabetes Risk Test Score was four score 05/08/2021 Medical Established Patient with Karla Amber MINUTE CLERK FOR BASIC TRAFFIC 05/08/2021 Last Documented On 1 10:59AM ; [facility] Routine adult history and ph ysical (18-64 yrs) without abnormal findings Medical Established Patient with Karla Amber MINUTE CLERK FOR BASIC TRAFFIC 05/08/2021 Last Documented On 1 10:59AM ; [facility] Z68.24 - Body mass index [BM I] 24.0-24.9, adult Medical Established Patient with Karla Amber MINUTE CLERK FOR BASIC TRAFFIC 05/08/2021 Last Documented On 1 10:59AM ; [facility] Z68.24 - Body mass index [BM I] 24.0-24.9, adult Medical Established Patient with Karla Amber MINUTE CLERK FOR BASIC TRAFFIC 06/17/2020 Last Documented On 1 10:30AM ; [facility] Overweight Medical Established Patient with Karla Amber MINUTE CLERK FOR BASIC TRAFFIC 06/06/2020 Last Documented On 1 2:06PM ; [facility] Z68.25 - Body mass index [BM I] 25.0-25.9, adult Medical Established Patient with Karla Amber MINUTE CLERK FOR BASIC TRAFFIC 06/06/2020 Last Documented On 1 2:06PM ; [facility] Antiasthmatics [facility] Asthma Clinic-New with Karla Amber MINUTE CLERK FOR BASIC TRAFFIC 05/06/2020 Last Documented On 0 7:27PM ; [facility] Assessment of tobacco use [facility] Clinic-New with Karla Amber MINUTE CLERK FOR BASIC TRAFFIC 05/06/2020 Last Documented On 0 7:27PM ; [facility] Body mass index [facility] Clinic-New with Karla Amber MINUTE CLERK FOR BASIC TRAFFIC 05/06/2020 Last Documented On 0 7:27PM ; [facility] Chronic obstructive pulmonary disease S [facility]-New with Karla Amber MINUTE CLERK FOR BASIC TRAFFIC 05/06/2020 Last Documented On 0 7:27PM ; [facility] Overweight CPS [facility]-New with Karla Clark MINUTE CLERK FOR BASIC TRAFFIC 05/06/2020 Last Documented On 0 7:27PM ; [facility] Z11.4 - Encounter for screen ing for human immunodeficiency virus [HIV] CPS [facility]-New with Karla Floresen MINUTE CLERK FOR BASIC TRAFFIC 05/06/2020 Last Documented On 0 7:27PM ; [facility] Diabetes Risk Test Score was three score 03/31/2020 Medical Established Patient with Karlajulius Floresen MINUTE CLERK FOR BASIC TRAFFIC 03/31/2020 Last Documented On 0 3:22PM ; [facility] Overweight Medical Established Patient with Karlajulius Floresen MINUTE CLERK FOR BASIC TRAFFIC 03/31/2020 Last Documented On 0 3:22PM ; [facility] Z68.25 - Body mass index [BM I] 25.0-25.9, adult Medical Established Patient with Karla Clark MINUTE CLERK FOR BASIC TRAFFIC 03/31/2020 Last Documented On 0 3:22PM ; [facility] Encounter for Immunization Nurse Visit with Gary Clark MINUTE CLERK FOR BASIC TRAFFIC 03/14/2020 Last Documented On 0 5:11PM ; [facility] Body mass index Medical Established Patient with Karla Floresen MINUTE CLERK FOR BASIC TRAFFIC 02/26/2020 Last Documented On 0 1:18PM ; [facility] Overweight Medical Established Patient with Karlajulius Floresen MINUTE CLERK FOR BASIC TRAFFIC 02/26/2020 Last Documented On 0 1:18PM ; [facility] Overweight Medical Established Patient with Karla Floresen MINUTE CLERK FOR BASIC TRAFFIC 07/23/2019 Last Documented On 0 2:33PM ; [facility] Z68.27 - Body mass index (BM I) 27.0-27.9, adult Medical Established Patient with Karla Floresen MINUTE CLERK FOR BASIC TRAFFIC 07/23/2019 Last Documented On 0 2:33PM ; [facility] Occasional asthma CPS- Asthma Clinic- F/U with A french Clark MINUTE CLERK FOR BASIC TRAFFIC 06/05/2019 Last Documented On 0 7:04PM ; [facility] Overweight CPS- [facility]- F/U with Aim julius Floresen MINUTE CLERK FOR BASIC TRAFFIC 06/05/2019 Last Documented On 0 7:04PM ; [facility] Z68.27 - Body mass index (BM I) 27.0-27.9 adult CPS- [facility] Clinic- F/U with Karla Clark MINUTE CLERK FOR BASIC TRAFFIC 06/05/2019 Last Documented On 0 7:04PM ; [facility] Occasional asthma CPS Med Review with Karlajulisu dinh MINUTE CLERK FOR BASIC TRAFFIC 04/23/2019 Last Documented On 9 4:01PM ; [facility] Overweight CPS Med Review with Karlajulius Clark MINUTE CLERK FOR BASIC TRAFFIC 04/23/2019 Last Documented On 9 4:01PM ; [facility] Z68.27 - Body mass index (BM I) 27.0-27.9 adult CPS Med Review with Karlajulius Clark MINUTE CLERK FOR BASIC TRAFFIC 04/23/2019 Last Documented On 9 4:01PM ; [facility] Acute pharyngitis Medical Established Patient wi th Brandy Kelley MINUTE CLERK FOR BASIC TRAFFIC 04/15/2019 Last Documented On 9 12:31PM ; [facility] Asthmatic bronchitis with ac [place] exacerbation Medical Established Patient with Brandy Warren MINUTE CLERK FOR BASIC TRAFFIC 04/15/2019 Last Documented On 9 12:31PM ; [facility] Fagerstrom Score was two Medical Established Pat ient with Brandy Warren MINUTE CLERK FOR BASIC TRAFFIC 04/15/2019 Last Documented On 9 12:31PM ; [facility] PHQ-9: total score was three 04/15/2019 Medical Established Patient with Brandy Warren MINUTE CLERK FOR BASIC TRAFFIC 04/15/2019 Last Documented On 9 12:31PM ; [facility] Body mass index Medical Established Patient with Karla Clark MINUTE CLERK FOR BASIC TRAFFIC 03/05/2019 Last Documented On 9 10:27AM ; [facility] Diabetes Risk Test Score was three score Medical Established Patient with Karla Amber MINUTE CLERK FOR BASIC TRAFFIC 03/05/2019 Last Documented On 9 10:27AM ; [facility] Overweight Medical Established Patient with Karla Amber MINUTE CLERK FOR BASIC TRAFFIC 03/05/2019 Last Documented On 9 10:27AM ; [facility] Z68.28 - Body mass index (BM I) 28.0-28.9, adult Medical Established Patient with Karlajulius Floresen MINUTE CLERK FOR BASIC TRAFFIC 12/22/2018 Last Documented On 9 10:32AM ; [facility] Assess routine adult history and physical (18 - 64 yrs) Medical Established Patient with Karla Amber MINUTE CLERK FOR BASIC TRAFFIC 11/06/2018 Last Documented On 9 2:26PM ; [facility] Overweight Medical Established Patient with Karla Amber MINUTE CLERK FOR BASIC TRAFFIC 11/06/2018 Last Documented On 9 2:26PM ; [facility] Z68.28 - Body mass index (BM I) 28.0-28.9, adult Medical Established Patient with Karla Amber MINUTE CLERK FOR BASIC TRAFFIC 11/06/2018 Last Documented On 9 2:26PM ; [facility] Assess dysphagia Medical Established Patient wit h Karla Amber MINUTE CLERK FOR BASIC TRAFFIC 09/11/2018 Last Documented On 9 10:53AM ; [facility] Assess routine adult history and physical (18 - 64 yrs) Medical Established Patient with Karla Amber MINUTE CLERK FOR BASIC TRAFFIC 09/11/2018 Last Documented On 9 10:53AM ; [facility] Assess primary insomnia with sleep apnea Medical Established Patient with Karla Amber MINUTE CLERK FOR BASIC TRAFFIC 09/04/2018 Last Documented On 9 2:23PM ; [facility] Assess routine adult history and physical (18 - 64 yrs) Medical Established Patient with Karla Amber MINUTE CLERK FOR BASIC TRAFFIC 09/04/2018 Last Documented On 9 2:23PM ; [facility] Overweight Medical Established Patient with Karla Amber MINUTE CLERK FOR BASIC TRAFFIC 09/04/2018 Last Documented On 9 2:23PM ; [facility] Z68.29 - Body mass index (BM I) 29.0-29.9, adult Medical Established Patient with Karla Amber MINUTE CLERK FOR BASIC TRAFFIC 09/04/2018 Last Documented On 9 2:23PM ; [facility] Assess vaginal candidiasis Medical Estab lished Patient with Karla Amber MINUTE CLERK FOR BASIC TRAFFIC 07/31/2018 Last Documented On 9 2:12PM ; [facility] Work Phone: Evaluation note* Diagnosis Onset Date Resolution Status MYESHA (acute kidney injury) ac [place] [facility]* Diagnosis Onset Date Resolution Status Acute psychosis acute MYESHA (acute kidney injury) ac [place] Chronic schizophrenia acute Schizoaffective disorder acu te [facility] Work Phone: Evaluation note* Diagnosis Stroke-like symptom- Primary Other symptoms involving nervous and musculoskeletal systems Migraine variant Variants of migraine, not elsewhere classified, without mention of intractable migraine without mention of status migrainosus [facility] Transportation unavailable- Primary documented in this encounter [facility]* Diagnosis Gait instability- Primary Abnormality of gait Tardive dyskinesia Subacute dyskinesia due to drugs Psychiatric disturbance Unspecified nonpsychotic mental disorder [place] use documented in this encounter [facility]* Diagnosis Lumbar radiculopathy- Primary Thoracic or lumbosacral neuritis or radiculitis, unspecified documented in this encounter [facility]* Diagnosis Abnormal EKG Nonspecific abnormal electrocardiogram (ECG) (EKG) RBBB Right bundle branch block History of [place] (myocardial infarction) Old myocardial infarction Tobacco abuse counseling Counseling on substance use and abuse [facility]* Diagnosis Onset Date Resolution Status Admit Date Closed fracture of right proximal humerus acute February 08, 2025 11:54am Other specified postprocedural states noneactive February 08, 2025 11:54am [place] Work Phone: History and physical note Author Joe rodriguez [facility] August 16, 2023 12:20pm Note Date/Time August 16, 2023 11: 24am [facility] [address] [place] [address] Psychiatry H&P Signed Patient: Gail Almeida MR#: [id number] : 1955 Acct:[id number] Age/Sex: 67 / F Adm Date: 4 Loc: Room: [address] [place] [address] Type: ADM IN Attending Dr: Joe Davis [...] 2 times total 1 time here in [facility] and another time at a different hospital Past suicide attempts: Denies previous suicidal attempts Previous medications: Reports Seroquel, [place], Zyprexa, Cogentin Alcohol and Drug Use: Denies alcohol use. Denies street drugs. Smokes 3 to 4cigarettes a day Living: 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 Review of symptoms: Constitutional: Denies chills and [...] SI, HI, hallucination Insight: Poor Judgment: Poor [facility] Medical History Localized swelling, mass and lump, [...] oral powder 17 g PO DAILY PRN Dyrkaonyrzfg05/10/23 [History Confirmed 08/15/23] quetiapine 400 mg tablet,extended [...] 08/15/23] dextromethorphan-guaifenesin 30 mg-600 mg tablet extended osmbdvj97 hr (Mucus DM) 1 tab PO Q12HR [...] Appearance Clear Urine pH 7.0 Ur Specific [place] 1.005 Urine Protein Negative Urine Glucose (UA) Normal Urine Ketones Negative Urine Occult Blood Negative Urine Nitrite Negative Ur Leukocyte Esterase 3+ H Urine RBC None seen Urine WBC 3-4 [place] 0.50 L Assessment/Plan (1) Schizoaffective disorder: Plan [...] PO BID and 400 mg PO HS [place] 300 mg PO BID. Obtain lithium level. [...] signed by Joe Davis MD> 08/16/[address] [facility] Work Phone: Hishvbb general Narrative - Reported* Type Description Date Medical History asthma Medical History depression Medical History parkinson disease Medical History bipolar Surgical History tubal ligation Surgical History hysterectomy Hospitalization History [employer] Other [employer] general Narrative - Reported* Type Description Date Medical History asthma Medical History depression Medical History parkinson disease Medical History bipolar Medical History schizophrenia Medical History migraine headache Medical History COPD Surgical History tubal ligation Surgical History hysterectomy Hospitalization History [employer] Other [employer] general Narrative - Reported Includes: Medical History in patient's chart Description Last Updated 1 previous live (s) 02/28/2023 Last Documented On 3 9:51AM ; [facility] Previously 1 time(s) 02/28/2023 Last Documented On 3 9:51AM ; [facility] Previous hospitalizations 09/18/2022 Last Documented On 3 2:33PM ; [facility] Currently nursing 11/03/2021 Last Documented On 2 7:00PM ; [facility] Partners status unknown for sexually tra nsmitted infection 11/03/2021 Last Documented On 2 7:00PM ; [facility] 11/03/2021 Last Documented On 2 7:00PM ; [facility] Not planning to have a baby in the next 12 months 11/03/2021 Last Documented On 2 7:00PM ; [facility] Heart Attack 03/2021 [facility] 1 07/09/2020 Last Documented On 1 10:59AM ; [facility] A recent immunization for flu 05/06/2020 Last Documented On 0 7:27PM ; [facility] Patient gave verbal consent for teleheal th 08/31/2019 Last Documented On 0 9:21AM ; [facility] History of abnormal electrocardiogram Last Documented On 9 2:12PM ; [facility] History of asthma 07/31/2018 Last Documented On 9 2:12PM ; [facility] History of cardiovascular disorder 07/31 Last Documented On 9 2:12PM ; [facility] History of respiratory disorder 07/31/19 19 Last Documented On 9 2:12PM ; [facility] History of bipolar disorder NOS 07/31/19 19 Last Documented On 9 2:12PM ; [facility] History of depression 07/31/2018 Last Documented On 9 2:12PM ; [facility] History of psychiatric disorders 019 Last Documented On 9 2:12PM ; [facility] Work Phone: History of Present illness Narrative History of Present Illness not supported for this document type No History of Present Illness [facility] Work Phone: Hospital Discharge instructions No data available for this section [facility] instructions[facility]ulatory Orders* PT/OT/SP OutPatient Referral Time [...] not already scheduled one. [facility] [address] [place], [place] [id number] [phone] Work Phone: Hospital Discharge instructions Additional Instructions 1. Supplanted pillows 2. Small amount of Vaseline to sutures twice daily 3. Okay to shower in the morning, keep wound dry and clean 4. Take antibiotics as prescribed 5. Tylenol or Motrin for discomfort 6. [facility] Work Phone: Instructions Instructions not supported for this document type No [facility]ructions [facility] Work Phone: patient problem outcome Narrative Includes: Evaluations & Outcomes for active Goals No Outcomes [facility] Work Phone: progress note* Progress note Date Encounter Last Documented by 08/27/2022 Medical Established Patient Last documented on 08/27/2022; 8:56 AM, Karla Clark CNP; [facility] Active Problems & Conditions - J45.909 [...] EVERY DAY, 30 days, 11 refills - Hawk [place] Carbonate 300MG Oral Tablet 300 MG take [...] Bipolar disorder NOS Depression Heart Attack 03/2021 [facility]. Surgical: - Hysterectomy Social History Environmental Exposure: [...] BP-Sitting L115/73 mmHg BP Cuff SizeRegular Pulse Rate-Tdhbgmo46 bpm Temp-Loaczigs39 F Ushrfm46 in Bsiwjp659 lbs 9.6 oz Body Mass Index24.6 kg/m2 Body Surface Area1.7 m2 Oxygen Ftduuyvnnz79 % General Appearance: - Appears distressed. - [...] and Counseling satisfied 08/27/2022. [facility] note Author Joe rodriguez [facility] August 17, 2023 6:38am Note Date/Time August 17, 2023 6:3 9am [facility] [address] [place] [address] Psychiatry Progress Note Signed Patient: Gail Almeida MR#: [id number] : 1955 Acct:[id number] Age/Sex: 67 / F Adm Date: 4 Loc: 1S Room: [address] [place] [address] Type : ADM IN Attending Dr: Joe [...] 28.6 L TSH 3rd Generation 9.75 H [place] 0.50 L Assessment/Plan Assessment/Plan (1) Schizoaffective disorder: Plan Patient denied any hallucinations this am. No SI/HI. Cogentin 0.5 mg PO BID Clonidine 0.1 mg PO Daily Zyprexa 5 mg PO Daily and 12.5 mg PO QHS Seroquel 12.5 mg PO BID and 400 mg PO HS [place] 300 mg PO BID. Obtain lithium level. [...] signed by Joe Davis MD> 08/17/23 0638 [facility] Work Phone: Progress note Author Joe rodriguez [facility] August 18, 2023 9:29am Note Date/Time August 18, 2023 9:2 9am [facility] [address] [place] [address] Psychiatry Progress Note Signed Patient: Gail Almeida MR#: [id number] : 1955 Acct:[id number] Age/Sex: 67 / F Adm Date: 4 Loc: 1S Room: [address] [place] [address] Type : ADM IN Attending Dr: Joe [...] PO BID and 400 mg PO HS [place] 300 mg PO BID. Obtain lithium level. [...] <Electronically signed by Joe Davis MD> 08/18/23928 [facility] Work Phone: Progress note Author Reynaldo Kraft [facility] August 19, 2023 12:04pm Note Date/Time August 19, 2023 12: 04pm [facility] [address] [place] [address] Psychiatry Progress Note Signed Patient: Gail Almeida MR#: [id number] : 1955 Acct:[id number] Age/Sex: 67 / F Adm Date: 4 Loc: Room: [address] [place] [address] Type : ADM IN Attending Dr: Joe [...] PO BID and 400 mg PO HS [place] 300 mg PO BID. Cipro 500mg PO BID Continue to monitor mental status Encourage group participation and medication compliance Risk benefits alternatives explained Documented By: Reynaldo Kraft MD 08/19/23 1203 Signed By: <Electronically signed by Reynaldo Kraft MD> 08/19/23 1204 [facility] Work Phone: Progress note* Progress note Date Encounter Last Documented by 06/17/2024 Chart Update Last documented on 06/17/2024; 10:29 AM, Karla Clark MINUTE CLERK FOR BASIC TRAFFIC; [facility] Active Problems & Conditions - J45.909 [...] once daily, 0 days, 0 refills - Hawk Run Carbonate 300 MG Oral Tablet one tablet [...] Bipolar disorder NOS Depression Heart Attack 03/2021 [facility] [place]. Surgical: - General surgery right shoulder ORIF [...] Health Reminders - Mammogram Needed satisfied [facility] Date Encounter Last Documented by 06/17/2024 Chart Update Last documented on 06/17/2024; 11:30 AM, Karla Clark CNP; [facility] Active Problems & Conditions - J45.909 [...] once daily, 0 days, 0 refills - [place] Carbonate 300 MG Oral Tablet one tablet [...] Bipolar disorder NOS Depression Heart Attack 03/2021 [facility] [place]. Surgical: - General surgery right shoulder ORIF [...] breast Outside Diagn Tests/Ultrasound: US Breast Bilateral (79934) Outside Diagn Tests/Imaging: Mammogram - Diagnostic Bilateral ([id number]) EndCited Advance Directives - Advance Care Planning Care Team - Karla Clark CNP Health Reminders - Mammogram Needed satisfied 05/29/2024. [facility]No Reason for Referral [facility]edHealth [facility] Work Phone: Reason for referral (narrative)* Consultation (Routine) - Pending Review Specialty Diagnoses / Procedures Referred By Conthiral t Referred To Contact Physical Therapy Diagnoses Gait instability Procedures [facility] OFFICE/OUTPATIENT NEW HIGH MDM 60 MINUTES Lucy Gilbert DO [address] [place] [address] Johan Alvarez, PT [address] [place] [address] Referral ID Status Reason Start Date Expiration Date Visits Requested Visits Authorized [id number] Pending Review Specialty Services Required 02/18/2024 08/16/2024 1 1 VI Martin for referral (narrative)No reason for referral information [place] Work Phone: Reason for visit Narrative* Consultation (Routine) - Closed Specialty Diagnoses / Procedures Referred By Contac t Referred To Contact Neurology Diagnoses Unspecified abnormalities of gait and mobility Procedures [facility] OFFICE/OUTPATIENT NEW LOW MDM 30 MINUTES Vida Culp MD [address] [place] [address] Héctor Vallecillo MD [address] [place] [address] Referral ID Status Reason Start Date Expiration Date Visits Re quested Visits Authorized [id number] Closed 01/29/2024 07/27/2024 1 1 [facility] N[facility]* Cardiology (Routine) - Closed Specialty Diagnoses / Procedures Referred By Contac t Referred To Contact Cardiology Diagnoses Abnormal EKG RBBB History of [place] (myocardial infarction) Tobacco abuse counseling Procedures Echo (TTE) complete (PRN contrast/bubble/strain/3D) VA ECHO TTHRC R-T 2D W/WOM-MODE COMPL SPEC&COLR D VA TTE W OR WO FOL JUDITH,Héctor Williamson MD [address] [place] [id number] Phone: tel: fax: Referral ID Status Reason Start Date Expiration Date Visits Re quested Visits Authorized [id number] Closed 12/07/2024 12/07/2025 1 1 [facility] Narrative - Reported Review of Systems not supported for this document type No Review of Systems [facility] Work Phone: History of Past Illness [...] 28.0-28.9, adult [facility] Assess routine adult history and physical (18 - 64 yrs) Medical Established Patient with [facility] 11/06/2018 Overweight Medical Established Patient with [facility] 11/06/2018 Z68.28 - Body mass index (BM I) 28.0-28.9, adult Medical Established Patient with [facility] 11/06/2018 Assess dysphagia Medical Established Patient with [facility] 09/11/2018 Assess routine adult history and physical (18 - 64 yrs) Medical Established Patient with [facility] 09/11/2018 Assess primary insomnia with sleep apnea Medical Established Patient with [facility] 09/04/2018 Assess routine adult history and physical (18 - 64 yrs) Medical Established Patient with [facility] 09/04/2018 Overweight Medical Established Patient with [facility] 09/04/2018 Z68.29 - Body mass index (BM I) 29.0-29.9, adult Medical Established Patient with Karla Amber [facility] 09/04/2018 Assess vaginal candidiasis Medical Estab lished Patient with Karla Clark [facility] 07/31/2018 Diagnosis Right foot pain Pain in limb Diagnosis Abnormal mammogram of left breast Findings Encounter Date Occasional asthma CPS Med Review with Karla dinh [facility] 04/23/2019 Overweight CPS Med Review with Karla Clark [facility] 04/23/2019 Z68.27 - Body mass index (BM I) 27.0-27.9 adult CPS Med Review with Karla Clark [facility] 04/23/2019 Acute pharyngitis Medical Established Patient with Brandy Kelley [facility] 04/15/2019 Asthmatic bronchitis with ac [place] exacerbation [facility] Fagerstrom Score was two Medical Establi shed Patient with Brandy Kelley [facility] 04/15/2019 PHQ-9: total score was three 04/15/2019 [facility] Body mass index Medical Established Patient with Karla Clark [facility] 03/05/2019 Diabetes Risk Test Score was three score Medical Established Patient with Karla Clark [facility] 03/05/2019 Overweight Medical Established Patient with Karla Clark [facility] 03/05/2019 Z68.28 - Body mass index (BM I) 28.0-28.9, adult Medical Established Patient with Karla Clark [facility] 12/22/2018 Assess routine adult history and physical (18 - 64 yrs) Medical Established Patient with Karla Clark [facility] 11/06/2018 Overweight Medical Established Patient with Kalra Clark [facility] 11/06/2018 Z68.28 - Body mass index (BM I) 28.0-28.9, adult Medical Established Patient with Karla Clark [facility] 11/06/2018 Assess dysphagia Medical Established Patient with Karla Clark [facility] 09/11/2018 Assess routine adult history and physical (18 - 64 yrs) Medical Established Patient with Karla Clark [facility] 09/11/2018 Assess primary insomnia with sleep apnea Medical Established Patient with Karla Clark [facility] 09/04/2018 Assess routine adult history and physical (18 - 64 yrs) Medical Established Patient with Karla Clark [facility] 09/04/2018 Overweight Medical Established Patient with Karla Clark [facility] 09/04/2018 Z68.29 - Body mass index (BM I) 29.0-29.9, adult Medical Established Patient with Karla Clark [facility] 09/04/2018 Assess vaginal candidiasis Medical Estab lished Patient with Karla Clark [facility] 07/31/2018 Findings Encounter Date Occasional asthma CPS- [facility] Clinic- F/U with Karla Amber [facility] 06/05/2019 Overweight CPS- Asthma Clinic- F/U with Karla Amber [facility] 06/05/2019 Z68.27 - Body mass index (BM I) 27.0-27.9 adult CPS- Asthma Clinic- F/U with Karla Amber [facility] 06/05/2019 Occasional asthma CPS Med Review with Karla Sandra dinh [facility] 04/23/2019 Overweight CPS Med Review with Karla Amber [facility] 04/23/2019 Z68.27 - Body mass index (BM I) 27.0-27.9 adult CPS Med Review with Karla Amber [facility] 04/23/2019 Acute pharyngitis Medical Established Patient with Brandy Kelley [facility] 04/15/2019 Asthmatic bronchitis with ac [place] exacerbation Medical Established Patient with Brandy Serranoer [facility] 04/15/2019 Fagerstrom Score was two Medical Establi shed Patient with Brandy Serranoer [facility] 04/15/2019 PHQ-9: total score was three 04/15/2019 Medical Established Patient with Brandy Serranoer [facility] 04/15/2019 Body mass index Medical Established Patient with Karla Clark [facility] 03/05/2019 Diabetes Risk Test Score was three score Medical Established Patient with Karla Clark [facility] 03/05/2019 Overweight Medical Established Patient with Karla Floresen [facility] 03/05/2019 Z68.28 - Body mass index (BM I) 28.0-28.9, adult Medical Established Patient with Karla Clark [facility] 12/22/2018 Assess routine adult history and physical (18 - 64 yrs) Medical Established Patient with Karla Clark [facility] 11/06/2018 Overweight Medical Established Patient with Karla Clark [facility] 11/06/2018 Z68.28 - Body mass index (BM I) 28.0-28.9, adult Medical Established Patient with Karla Floresen [facility] 11/06/2018 Assess dysphagia Medical Established Patient with Karla Amber [facility] 09/11/2018 Assess routine adult history and physical (18 - 64 yrs) Medical Established Patient with Karla Floresen [facility] 09/11/2018 Assess primary insomnia with sleep apnea Medical Established Patient with Karla Amber [facility] 09/04/2018 Assess routine adult history and physical (18 - 64 yrs) Medical Established Patient with Karlajulius Clark [employer] 09/04/2018 Overweight Medical Established Patient with Karlajulius Floresen [employer] 09/04/2018 Z68.29 - Body mass index (BM I) 29.0-29.9, adult Medical Established Patient with Karlajulius Floresen [facility] [employer] [employer] 09/04/2018 Assess vaginal candidiasis Medical Estab lished Patient with Karlajulius Clark [employer] 07/31/2018 Findings Encounter Date Overweight Medical Established Patient with Karla Floresen [employer] 07/23/2019 Z68.27 - Body mass index (BM I) 27.0-27.9, adult Medical Established Patient with Karlajulius Clark [employer] 07/23/2019 Occasional asthma CPS- Asthma Clinic- F/U with Karla Amber [facility] 06/05/2019 Overweight CPS- Asthma Clinic- F/U with Karla Amber [facility] 06/05/2019 Z68.27 - Body mass index (BM I) 27.0-27.9 adult CPS- Asthma Clinic- F/U with Karla Amber [facility] 06/05/2019 Occasional asthma CPS Med Review with Karla Sandra dinh [facility] 04/23/2019 Overweight CPS Med Review with Karla Amber [facility] 04/23/2019 Z68.27 - Body mass index (BM I) 27.0-27.9 adult CPS Med Review with Karla Amber [facility] 04/23/2019 Acute pharyngitis Medical Established Patient with Brandy Warren [facility] 04/15/2019 Asthmatic bronchitis with ac [place] exacerbation Medical Established Patient with Brandy Warren [facility] 04/15/2019 Fagerstrom Score was two Medical Establi shed Patient with Brandy Serranoer [facility] 04/15/2019 PHQ-9: total score was three 04/15/2019 Medical Established Patient with Brandy Warren [facility] 04/15/2019 Body mass index Medical Established Patient with Karla Clark [facility] 03/05/2019 Diabetes Risk Test Score was three score Medical Established Patient with Karla Amber [facility] 03/05/2019 Overweight Medical Established Patient with Karla Amber [facility] 03/05/2019 Z68.28 - Body mass index (BM I) 28.0-28.9, adult Medical Established Patient with Karlajulius Floresen [facility] 12/22/2018 Assess routine adult history and physical (18 - 64 yrs) Medical Established Patient with Karla Amber [facility] 11/06/2018 Overweight Medical Established Patient with Karla Amber [facility] 11/06/2018 Z68.28 - Body mass index (BM I) 28.0-28.9, adult Medical Established Patient with Karla Clark [facility] 11/06/2018 Assess dysphagia Medical Established Patient with Karla Clark [facility] 09/11/2018 Assess routine adult history and physical (18 - 64 yrs) Medical Established Patient with Karlajulius Clark [facility] 09/11/2018 Assess primary insomnia with sleep apnea Medical Established Patient with Karlajulius Clark [facility] 09/04/2018 Assess routine adult history and physical (18 - 64 yrs) Medical Established Patient with Karla Amber [facility] 09/04/2018 Overweight Medical Established Patient with Karla Amber [facility] 09/04/2018 Z68.29 - Body mass index (BM I) 29.0-29.9, adult Medical Established Patient with Karlajulius Clark [facility] 09/04/2018 Assess vaginal candidiasis Medical Estab lished Patient with Karlajulius Clark [facility] 07/31/2018 Findings Encounter Date Body mass index Medical Established Patient with Karlajulius Clark [facility] 02/26/2020 Overweight Medical Established Patient with Karlajulius Floresen [facility] 02/26/2020 Overweight Medical Established Patient with Karlajulius Floresen [facility] 07/23/2019 Z68.27 - Body mass index (BM I) 27.0-27.9, adult Medical Established Patient with Karla Floresen [facility] 07/23/2019 Occasional asthma CPS- Asthma Clinic- F/U with Karla Amber [facility] 06/05/2019 Overweight CPS- Asthma Clinic- F/U with Karla Amber [facility] 06/05/2019 Z68.27 - Body mass index (BM I) 27.0-27.9 adult CPS- Asthma Clinic- F/U with Karla Amber [facility] 06/05/2019 Occasional asthma CPS Med Review with Karla Sandra dinh [facility] 04/23/2019 Overweight CPS Med Review with Karla Amber [facility] 04/23/2019 Z68.27 - Body mass index (BM I) 27.0-27.9 adult CPS Med Review with Karla Amber [facility] 04/23/2019 Acute pharyngitis Medical Established Patient with Brandy Kelley [facility] 04/15/2019 Asthmatic bronchitis with ac [place] exacerbation Medical Established Patient with Brandy Warren [facility] 04/15/2019 Fagerstrom Score was two Medical Establi shed Patient with Brandy Kelley [facility] 04/15/2019 PHQ-9: total score was three 04/15/2019 Medical Established Patient with Brandy Kelley [employer] 04/15/2019 Body mass index Medical Established Patient with Karla Clark [facility] [employer] [employer] 03/05/2019 Diabetes Risk Test Score was three score Medical Established Patient with Karla Clark [employer] 03/05/2019 Overweight Medical Established Patient with Karlajulius Clark [employer] 03/05/2019 Z68.28 - Body mass index (BM I) 28.0-28.9, adult Medical Established Patient with Karla Clark [employer] 12/22/2018 Assess routine adult history and physical (18 - 64 yrs) Medical Established Patient with Karla Amber [employer] 11/06/2018 Overweight Medical Established Patient with Karla Amber [employer] 11/06/2018 Z68.28 - Body mass index (BM I) 28.0-28.9, adult Medical Established Patient with Karla Clark [employer] 11/06/2018 Assess dysphagia Medical Established Patient with Karlajulius Floresen [employer] 09/11/2018 Assess routine adult history and physical (18 - 64 yrs) Medical Established Patient with Karlajulius Clark [employer] 09/11/2018 Assess primary insomnia with sleep apnea Medical Established Patient with Karlajulius Clark [employer] 09/04/2018 Assess routine adult history and physical (18 - 64 yrs) Medical Established Patient with Karla Amber [employer] 09/04/2018 Overweight Medical Established Patient with Karla Floresen [employer] 09/04/2018 Z68.29 - Body mass index (BM I) 29.0-29.9, adult Medical Established Patient with Karla Clark [employer] 09/04/2018 Assess vaginal candidiasis Medical Estab lished Patient with Karlajulius Clark [employer] 07/31/2018 Findings Encounter Date Encounter for Immunization Nurse Visit with Gary Clark [employer]UTE CL[employer] 03/14/2020 Body mass index Medical Established Patient with Karlajulius Floresen [employer] 02/26/2020 Overweight Medical Established Patient with Karlajulius Floresen [employer] 02/26/2020 Overweight Medical Established Patient with Karla Floresen [employer] 07/23/2019 Z68.27 - Body mass index (BM I) 27.0-27.9, adult Medical Established Patient with Karla Amber [employer] 07/23/2019 Occasional asthma CPS- Asthma Clinic- F/U with Karlajulius Clark [employer] 06/05/2019 Overweight CPS- Asthma Clinic- F/U with Karlajulius Clark [employer] 06/05/2019 Z68.27 - Body mass index (BM I) 27.0-27.9 adult CPS- Asthma Clinic- F/U with Karla Clark [employer] 06/05/2019 Occasional asthma CPS Med Review with Karla dinh [facility] 04/23/2019 Overweight CPS Med Review with Karla Clark [facility] 04/23/2019 Z68.27 - Body mass index (BM I) 27.0-27.9 adult CPS Med Review with Karla Clark [employer] 04/23/2019 Acute pharyngitis Medical Established Patient with Brandy Serranoer [employer] 04/15/2019 Asthmatic bronchitis with ac [place] exacerbation Medical Established Patient with Brandy Kelley [employer] 04/15/2019 Fagerstrom Score was two Medical Establi shed Patient with Brandy Kelley [employer] 04/15/2019 PHQ-9: total score was three 04/15/2019 Medical Established Patient with Brandy Kelley [facility] 04/15/2019 Body mass index Medical Established Patient with Karla Clark [facility] 03/05/2019 Diabetes Risk Test Score was three score Medical Established Patient with Karla Clark [facility] 03/05/2019 Overweight Medical Established Patient with Karlajulius Clark [facility] 03/05/2019 Z68.28 - Body mass index (BM I) 28.0-28.9, adult Medical Established Patient with Karlajulius Clark [facility] 12/22/2018 Assess routine adult history and physical (18 - 64 yrs) Medical Established Patient with Karla Clark [facility] 11/06/2018 Overweight Medical Established Patient with Karlajulius Clark [facility] 11/06/2018 Z68.28 - Body mass index (BM I) 28.0-28.9, adult Medical Established Patient with Karla Clark [facility] 11/06/2018 Assess dysphagia Medical Established Patient with Karla Clark [facility] 09/11/2018 Assess routine adult history and physical (18 - 64 yrs) Medical Established Patient with Karlajulius Clark [facility] 09/11/2018 Assess primary insomnia with sleep apnea Medical Established Patient with Karlajulius Clark [facility] 09/04/2018 Assess routine adult history and physical (18 - 64 yrs) Medical Established Patient with Karlajulius Clark [facility] 09/04/2018 Overweight Medical Established Patient with Karlajulius Clark [facility] 09/04/2018 Z68.29 - Body mass index (BM I) 29.0-29.9, adult Medical Established Patient with Karla Clark [facility] 09/04/2018 Assess vaginal candidiasis Medical Estab lished Patient with Karla Clark [facility] 07/31/2018 Diagnosis Abnormal mammogram Abnormal mammogram, unspecified Diagnosis Abnormal mammogram Abnormal mammogram, unspecified Findings Encounter Date Antiasthmatics [facility]hma Clinic-Ne w with Karlajulius Clark [employer]UTE CLERK [employer] 05/06/2020 Assessment of tobacco use CPS Asthma Cli yash-New with Karlajulius Clark [employer] 05/06/2020 Body mass index CPS [facility] Clinic-Ne w with Karlajulius Clark [employer] 05/06/2020 Chronic obstructive pulmonary disease CP S [facility]hma Clinic-New with Karlajulius Clark [facility] 05/06/2020 Overweight CPS Asthma Clinic-Ne w with Karlajulius Clark [facility] 05/06/2020 Z11.4 - Encounter for screen ing for human immunodeficiency virus [HIV] CPS Ast[facility] Clinic-New with Karlajulius Clark [facility] 05/06/2020 Diabetes Risk Test Score was three score 03/31/2020 Medical Established Patient with Karlajulius Clark [facility] 03/31/2020 Overweight Medical Established Patient with Karlajulius Clark [facility] 03/31/2020 Z68.25 - Body mass index [BM I] 25.0-25.9, adult Medical Established Patient with Karlajulius Clark [facility] 03/31/2020 Encounter for Immunization Nurse Visit with Gary Clark [facility] 03/14/2020 Body mass index Medical Established Patient with Karlajulius Clark [employer] 02/26/2020 Overweight Medical Established Patient with Karlajulius Clark [facility] 02/26/2020 Overweight Medical Established Patient with Karlajulius Clark [facility] 07/23/2019 Z68.27 - Body mass index (BM I) 27.0-27.9, adult Medical Established Patient with Karlajulius Clark [employer] 07/23/2019 Occasional asthma CPS- Asthma Clinic- F/U with Karla Clark [employer] 06/05/2019 Overweight CPS- Asthma Clinic- F/U with Karlajulius Clark [facility] 06/05/2019 Z68.27 - Body mass index (BM I) 27.0-27.9 adult CPS- Asthma Clinic- F/U with Karlajulius Clark [facility] 06/05/2019 Occasional asthma CPS Med Review with Karla Clark [facility] 04/23/2019 Overweight CPS Med Review with Karla Clark [facility] 04/23/2019 Z68.27 - Body mass index (BM I) 27.0-27.9 adult CPS Med Review with Karla Clark [facility] 04/23/2019 Acute pharyngitis Medical Established Patient with Brandy Kelley [employer] CL[employer] 04/15/2019 Asthmatic bronchitis with ac [place] exacerbation Medical Established Patient with Brandy eKlley CNP 04/15/2019 Fagerstrom Score was two Medical Establi shed Patient with Brandy Kelley [employer] 04/15/2019 PHQ-9: total score was three 04/15/2019 Medical Established Patient with Brandy Kelley [employer] 04/15/2019 Body mass index Medical Established Patient with Karla Clark [facility] 03/05/2019 Diabetes Risk Test Score was three score Medical Established Patient with Karla Clark [facility] 03/05/2019 Overweight Medical Established Patient with Karlajulius Clark [facility] 03/05/2019 Z68.28 - Body mass index (BM I) 28.0-28.9, adult Medical Established Patient with Karla Clark [facility] 12/22/2018 Assess routine adult history and physical (18 - 64 yrs) Medical Established Patient with Karla Clark [employer] 11/06/2018 Overweight Medical Established Patient with Karlajulius Clark [facility] 11/06/2018 Z68.28 - Body mass index (BM I) 28.0-28.9, adult Medical Established Patient with Karla Clark [facility] 11/06/2018 Assess dysphagia Medical Established Patient with Karla Clark [facility] 09/11/2018 Assess routine adult history and physical (18 - 64 yrs) Medical Established Patient with Karlajulius Clark [facility] 09/11/2018 Assess primary insomnia with sleep apnea Medical Established Patient with Karla Clark [facility] 09/04/2018 Assess routine adult history and physical (18 - 64 yrs) Medical Established Patient with Karlajulius Clark [facility] 09/04/2018 Overweight Medical Established Patient with Karlajulius Clark [facility] 09/04/2018 Z68.29 - Body mass index (BM I) 29.0-29.9, adult Medical Established Patient with Karla Clark [facility] 09/04/2018 Assess vaginal candidiasis Medical Estab lished Patient with Karlajulius Clark [employer] 07/31/2018 Diagnosis Abnormal ultrasound of breast Other (abnormal) findings on radiological examination of breast Lesion of breast Unspecified breast disorder Diagnosis Hyperprolactinemia (HCC) Other and unspecified anterior pituitary hyperfunction Findings Encounter Date Acute pharyngitis Medical Established Patient with Brandy Kelley [employer] 04/15/2019 Asthmatic bronchitis with ac [place] exacerbation Medical Established Patient with Brandy Kelley [employer] 04/15/2019 Fagerstrom Score was two Medical Establi shed Patient with Brandy Serranoer [employer] 04/15/2019 PHQ-9: total score was three 04/15/2019 Medical Established Patient with Brandy Kelley CNP 04/15/2019 Body mass index Medical Established Patient with Karla Clark [employer] 03/05/2019 Diabetes Risk Test Score was three score Medical Established Patient with Karla lCark [employer] 03/05/2019 Overweight Medical Established Patient with Karlajulius Clark [employer] 03/05/2019 Z68.28 - Body mass index (BM I) 28.0-28.9, adult Medical Established Patient with Karla Calrk [employer] 12/22/2018 Assess routine adult history and physical (18 - 64 yrs) Medical Established Patient with Karla Amber [employer] 11/06/2018 Overweight Medical Established Patient with Karla Amber [employer] 11/06/2018 Z68.28 - Body mass index (BM I) 28.0-28.9, adult Medical Established Patient with Karla Clark [employer] 11/06/2018 Assess dysphagia Medical Established Patient with Karlajulius Clark [employer] 09/11/2018 Assess routine adult history and physical (18 - 64 yrs) Medical Established Patient with Karlajulius Clark [facility] 09/11/2018 Assess primary insomnia with sleep apnea Medical Established Patient with Karlajulius Clark [employer] 09/04/2018 Assess routine adult history and physical (18 - 64 yrs) Medical Established Patient with Karla Amber [employer] 09/04/2018 Overweight Medical Established Patient with Karla Clark [employer] 09/04/2018 Z68.29 - Body mass index (BM I) 29.0-29.9, adult Medical Established Patient with Karlajulius Clark [employer] 09/04/2018 Assess vaginal candidiasis Medical Estab lished Patient with Karla Clark [employer] 07/31/2018 Findings Encounter Date Z68.24 - Body mass index [BM I] 24.0-24.9, adult Medical Established Patient with Karla Clark [employer] 06/17/2020 Overweight Medical Established Patient with Karla Clark [employer] 06/06/2020 Z68.25 - Body mass index [BM I] 25.0-25.9, adult Medical Established Patient with Karla Clark [employer] 06/06/2020 Antiasthmatics CPS Asthma Clinic-Ne w with Karla Amber [facility] 05/06/2020 Assessment of tobacco use CPS Asthma Cli yash-New with Karlajulius Clark [facility] 05/06/2020 Body mass index CPS [facility] Clinic-Ne w with Karlajulius Clark [facility] 05/06/2020 Chronic obstructive pulmonary disease CP S [facility]hma Clinic-New with Karlajulius Clark [facility] 05/06/2020 Overweight CPS Asthma Clinic-Ne w with Karla Amber [facility] 05/06/2020 Z11.4 - Encounter for screen ing for human immunodeficiency virus [HIV] CPS [facility] Clinic-New with Karla Floresen [facility] 05/06/2020 Diabetes Risk Test Score was three score 03/31/2020 Medical Established Patient with Karla Amber [facility] 03/31/2020 Overweight Medical Established Patient with Karla Amber [facility] 03/31/2020 Z68.25 - Body mass index [BM I] 25.0-25.9, adult Medical Established Patient with Karla Floresen [facility] 03/31/2020 Encounter for Immunization Nurse Visit with Gary segundo Amber [facility] 03/14/2020 Body mass index Medical Established Patient with Karla Amber [facility] 02/26/2020 Overweight Medical Established Patient with Karla Amber [facility] 02/26/2020 Overweight Medical Established Patient with Karla Amber [facility] 07/23/2019 Z68.27 - Body mass index (BM I) 27.0-27.9, adult Medical Established Patient with Karla Amber [facility] 07/23/2019 Occasional asthma CPS- Asthma Clinic- F/U with Karla Amber [facility] 06/05/2019 Overweight CPS- Asthma Clinic- F/U with Karla Amber [facility] 06/05/2019 Z68.27 - Body mass index (BM I) 27.0-27.9 adult CPS- Asthma Clinic- F/U with Karla Amber [facility] 06/05/2019 Occasional asthma CPS Med Review with Karla Amber [facility] 04/23/2019 Overweight CPS Med Review with Karla Amber [facility] 04/23/2019 Z68.27 - Body mass index (BM I) 27.0-27.9 adult CPS Med Review with Karla Amber [facility] 04/23/2019 Acute pharyngitis Medical Established Patient with Brandy Kelley [facility] 04/15/2019 Asthmatic bronchitis with ac [place] exacerbation Medical Established Patient with Brandy Kelley [facility] 04/15/2019 Fagerstrom Score was two Medical Establi shed Patient with Brandy Kelley [facility] 04/15/2019 PHQ-9: total score was three 04/15/2019 Medical Established Patient with Brandy Kelley [facility] 04/15/2019 Body mass index Medical Established Patient with Karlajulius Clark [facility] 03/05/2019 Diabetes Risk Test Score was three score Medical Established Patient with Karlajulius Clark [facility] 03/05/2019 Overweight Medical Established Patient with Karla Amber [employer] 03/05/2019 Z68.28 - Body mass index (BM I) 28.0-28.9, adult Medical Established Patient with Karla Amber [employer] 12/22/2018 Assess routine adult history and physical (18 - 64 yrs) Medical Established Patient with Karla Amber [employer] 11/06/2018 Overweight Medical Established Patient with Karla Amber [employer] 11/06/2018 Z68.28 - Body mass index (BM I) 28.0-28.9, adult Medical Established Patient with Karla Amber [employer] 11/06/2018 Assess dysphagia Medical Established Patient with Karla Amber [employer] 09/11/2018 Assess routine adult history and physical (18 - 64 yrs) Medical Established Patient with Karla Amber [employer] 09/11/2018 Assess primary insomnia with sleep apnea Medical Established Patient with Karla Amber [employer] 09/04/2018 Assess routine adult history and physical (18 - 64 yrs) Medical Established Patient with Karla Amber [employer] 09/04/2018 Overweight Medical Established Patient with Karla Amber [employer] 09/04/2018 Z68.29 - Body mass index (BM I) 29.0-29.9, adult Medical Established Patient with Karla Amber [employer] 09/04/2018 Assess vaginal candidiasis Medical Estab lished Patient with Karla Amber [employer] 07/31/2018 Findings Encounter Date Diabetes Risk Test Score was three score 03/31/2020 Medical Established Patient with Karla Amber [employer] 03/31/2020 Overweight Medical Established Patient with Karla Amber [employer] 03/31/2020 Z68.25 - Body mass index [BM I] 25.0-25.9, adult Medical Established Patient with Karla Amber [employer] 03/31/2020 Encounter for Immunization Nurse Visit with GaryNicolasa [employer] 03/14/2020 Body mass index Medical Established Patient with Karla Amber [employer] 02/26/2020 Overweight Medical Established Patient with Karla Amber [employer] 02/26/2020 Overweight Medical Established Patient with Karla Amber [employer] 07/23/2019 Z68.27 - Body mass index (BM I) 27.0-27.9, adult Medical Established Patient with Karla Amber [employer] 07/23/2019 Occasional asthma CPS- Asthma Clinic- F/U with Karlajulius Clark [employer] 06/05/2019 Overweight CPS- Asthma Clinic- F/U with Karla Amber [facility] 06/05/2019 Z68.27 - Body mass index (BM I) 27.0-27.9 adult CPS- Asthma Clinic- F/U with Karla Floresen [facility] 06/05/2019 Occasional asthma CPS Med Review with Karla dinh [facility] 04/23/2019 Overweight CPS Med Review with Karla Clark [facility] 04/23/2019 Z68.27 - Body mass index (BM I) 27.0-27.9 adult CPS Med Review with Karla Floresen [facility] 04/23/2019 Acute pharyngitis [facility] Asthmatic bronchitis with ac [place] exacerbation [facility] Fagerstrom Score was two Medical Establi shed Patient with Brandy Kelley [facility] 04/15/2019 PHQ-9: total score was three 04/15/2019 [facility] Body mass index Medical Established Patient with Karla Clark [facility] 03/05/2019 Diabetes Risk Test Score was three score Medical Established Patient with Karla Clark [facility] 03/05/2019 Overweight Medical Established Patient with Karla Clark [facility] 03/05/2019 Z68.28 - Body mass index (BM I) 28.0-28.9, adult Medical Established Patient with Karla Clark [facility] 12/22/2018 Assess routine adult history and physical (18 - 64 yrs) Medical Established Patient with Karla Clark [facility] 11/06/2018 Overweight Medical Established Patient with Karla Clark [facility] 11/06/2018 Z68.28 - Body mass index (BM I) 28.0-28.9, adult Medical Established Patient with Karla Clark [facility] 11/06/2018 Assess dysphagia Medical Established Patient with Karla Clark [facility] 09/11/2018 Assess routine adult history and physical (18 - 64 yrs) Medical Established Patient with Karla Clark [facility] 09/11/2018 Assess primary insomnia with sleep apnea Medical Established Patient with Karla Clark [facility] 09/04/2018 Assess routine adult history and physical (18 - 64 yrs) [facility] Z68.29 - Body mass index (BM I) 29.0-29.9, adult Medical Established Patient with Karla Clark [facility] 09/04/2018 Assess vaginal candidiasis Medical Estab lished Patient with Karlajulius Clark [employer] 07/31/2018 Diagnosis Duct ectasia of breast, left Findings Encounter Date Body mass index Medical Established Patient with Karlajulius Clark [employer] 03/05/2019 Diabetes Risk Test Score was three score Medical Established Patient with Karla Amber [employer] 03/05/2019 Overweight Medical Established Patient with Karla Amber [employer] 03/05/2019 Z68.28 - Body mass index (BM I) 28.0-28.9, adult Medical Established Patient with Karla Amber [employer] 12/22/2018 Assess routine adult history and physical (18 - 64 yrs) Medical Established Patient with Karla Amber [employer] 11/06/2018 Overweight Medical Established Patient with Karla Amber [employer] 11/06/2018 Z68.28 - Body mass index (BM I) 28.0-28.9, adult Medical Established Patient with Karla Amber [employer] 11/06/2018 Assess dysphagia Medical Established Patient with Karla Amber [employer] 09/11/2018 Assess routine adult history and physical (18 - 64 yrs) Medical Established Patient with Karla Amber [employer] 09/11/2018 Assess primary insomnia with sleep apnea Medical Established Patient with Karla Amber [employer] 09/04/2018 Assess routine adult history and physical (18 - 64 yrs) Medical Established Patient with Karla Amber [employer] 09/04/2018 Overweight Medical Established Patient with Karla Amber [employer] 09/04/2018 Z68.29 - Body mass index (BM I) 29.0-29.9, adult Medical Established Patient with Karla Amber [employer] 09/04/2018 Assess vaginal candidiasis Medical Estab lished Patient with Karlajulius Clark [employer] 07/31/2018 Instructions Instructions not supported for this [...] 07/31/2018 Last Documented On 9 2:12PM ; [facility] Description Last Updated No significant medical history in nuclea r family 07/31/2018 Last Documented On 9 2:12PM ; [facility] Description Last Updated No significant medical history in nuclea r family 07/31/2018 Last Documented On 9 2:12PM ; [facility] Description Last Updated No significant medical history in nuclea r family 07/31/2018 Last Documented On 9 2:12PM ; [facility] Relationship Condition Age at Onset Recorded Date/T aviva Not Specified Intellectual disability Unknown father History of coronary artery stent placement Unknown Coronary artery disease Unknown Not Specified Recurrent cerebrovas cular accidents (CVAs) Unknown brother Congestive heart failure Unknown Muscular dystrophy Unknown Description Last Updated No significant medical history in nuclea r family 07/31/2018 Last Documented On 9 2:12PM ; [facility] Description Last Updated Maternal history of breast neoplasm 02/02 Last Documented On 3 9:51AM ; [facility] No significant medical history in nuclea r family 07/31/2018 Last Documented On 9 2:12PM ; [facility] Relationship Condition Age at Onset Recorded Date/T aviva father History of coronary artery stent placement Unknown Coronary artery disease Unknown Not Specified Recurrent cerebrovas cular accidents (CVAs) Unknown brother Congestive heart failure Unknown Muscular dystrophy Unknown Description Last Updated Maternal history of breast neoplasm 02/02 Last Documented On 3 9:51AM ; [facility] No significant medical history in nuclea r family 07/31/2018 Last Documented On 9 2:12PM ; [facility] Relationship Condition Age at Onset Recorded Date/T aviva father History of coronary artery stent placement Unknown Coronary artery disease Unknown Not Specified Recurrent cerebrovas cular accidents (CVAs) Unknown brother Congestive heart failure Unknown Muscular dystrophy Unknown brother Unknown Heart disease Unknown Not Specified Malignant neoplasm Unknown Description Last Updated Maternal history of breast neoplasm 02/02 Last Documented On 3 9:51AM ; [facility] No significant medical history in nuclea r family 07/31/2018 Last Documented On 9 2:12PM ; [facility] Description Last Updated Maternal history of breast neoplasm 02/02 Last Documented On 3 9:51AM ; [facility] No significant medical history in nuclea r family 07/31/2018 Last Documented On 9 2:12PM ; [facility] Description Last Updated Maternal history of breast neoplasm 02/02 Last Documented On 3 9:51AM ; [facility] No significant medical history in nuclea r family 07/31/2018 Last Documented On 9 2:12PM ; [facility] Relationship Condition Age at Onset Recorded Date/T aviva father History of coronary artery stent placement Unknown Coronary artery disease Unknown mother Recurrent cerebrovas cular accidents (CVAs) Unknown brother Congestive heart failure Unknown Muscular dystrophy Unknown brother Unknown Heart disease Unknown mother Malignant neoplasm Unknown Description Last Updated Maternal history of breast neoplasm 02/02 Last Documented On 3 9:51AM ; [facility] No significant medical history in nuclea r family 07/31/2018 Last Documented On 9 2:12PM ; [facility] Description Last Updated Maternal history of breast neoplasm 02/02 Last Documented On 3 9:51AM ; [facility] No significant medical history in nuclea r family 07/31/2018 Last Documented On 9 2:12PM ; [facility] Description Last Updated Maternal history of breast neoplasm 02/02 Last Documented On 3 9:51AM ; [facility] No significant medical history in nuclea r family 07/31/2018 Last Documented On 9 2:12PM ; [facility] Review of System Review of Systems not [...] Documents on File Type Date Recorded Patient Bag Machine Helper Expl anation ACP-Power of Oyster Cultivator 08/01/2021 10:21 AM Date Activated Date Inactivated Comments 03/23/2013 12:03 AM 03/23/2013 7:42 PM Documents on File Type Date Recorded Patient Bag Machine Helper Expl anation ACP-Power of Oyster Cultivator 08/01/2021 10:21 AM Latest Code Status on File Code Status Date Activated Date Inactivated Comments Full Code 03/23/2013 12:03 AM 03/23/2013 7:42 PM Documents on File Type Date Recorded Patient Bag Machine Helper Expl anation Advance Directives and Living Will Power of Oyster Cultivator Latest Code Status on File Code Status Date Activated Date Inactivated Comments Full Code 03/23/2013 12:03 AM 03/23/2013 7:42 PM Documents on File Type Date Recorded Patient Bag Machine Helper Expl anation Advance Directives and Living Will Power of Oyster Cultivator Documents on File Type Date Recorded Patient Bag Machine Helper Expl anation ACP-Advance Directive ACP-Power of Oyster Cultivator Documents on File Type Date Recorded Patient Bag Machine Helper Expl anation ACP-Advance Directive ACP-Power of Oyster Cultivator Documents on File Type Date Recorded Patient Bag Machine Helper Expl anation ACP-Advance Directive ACP-Power of Oyster Cultivator ACP-Power of Oyster Cultivator 08/01/2021 10:21 AM Documents on File Type Date Recorded Patient Bag Machine Helper Expl anation ACP-Advance Directive ACP-Power of Oyster Cultivator ACP-Power of Oyster Cultivator 08/01/2021 10:21 AM Directive Pat Aware Third Libertarian Effective Date Reviewed Sta tus Advance Care [...] 03/23/2013 7:42 PM Discharge Instructions * Instructions* Marina Ag I, [...] common and can be relieved with an [id number] (non-aspirin) analgesic such as Tylenol. Please follow [...] common and can be relieved with an [id number]-aed-urcthxd (non-aspirin) analgesic such as Tylenol. Pleasefollow the [...] HC US BREAST COMP Billy Ojeda MD [address] [place] [address] [place] [address] [facility] Ultrasound [address] [place] [address] Status Reason Specialty Diagnoses / Procedures Referre d By Contact Referred To Contact Closed Radiology Diagnoses Abnormal mammogram Procedures LINDA DIGITAL DIAGNOSTIC W OR WO CAD LEFT Billy Ojeda MD [address] [place] [address] [address] [place] [address] Status Reason Specialty Diagnoses / Procedures Referre d By Contact Referred To Contact Closed Radiology Diagnoses Hyperprolactinemia (HCC) Procedures MRI BRAIN W WO CONTRAST Karla Clark, SCRAP SEPARATOR - MINUTE CLERK FOR BASIC TRAFFIC [address] [place] [address] Status Reason Specialty Diagnoses / Procedures Referre d By Contact Referred To Contact Open Diagnoses Duct ectasia of breast, left Procedures US BREASt COMPLETE LEFT HC US BREAST COMP She Spencer APRN - CNM [address] [id number] Status Reason Specialty Diagnoses / Procedures Referre d By Contact Referred To Contact Closed Radiology Diagnoses History of breast biopsy Procedures LINDA ERYN DIGITAL DIAGNOSTIC BILATERAL She Spencer APRN - CNAlexey [address] [place] [address] [address] [place] [address] [facility] [address] [place] [address] Specialty Diagnoses / Procedures Referred By Contac t Referred To Contact Radiology Diagnoses Breast lump on right side at 4 o'clock position Procedures MRI BREAST BILATERAL W CONTRAST She Spencer APRN - CNAlexey [address] [place] [address] Dr [address] [place] [address] Referral ID Status Reason Start Date Expiration Date Visits Re quested Visits Authorized [id number] Closed 07/19/2021 07/19/2022 1 1 Specialty Diagnoses / Procedures Referred By Conthiral t Referred To Contact Cardiology Diagnoses Pre-operative clearance Abnormal EKG History of [place] (myocardial infarction) Procedures ECHO Complete 2D W Doppler W Color Héctor Turner MD [address] [place] [address] Referral ID Status Reason Start Date Expiration Date Visits Re quested Visits Authorized [id number] Closed 01/01/2022 01/01/2023 1 1 Summary Purpose [...] Nausea & vomiting Schizoaffective disorder Chief Complaint [facility] Reason for Visit Acute psychosis Chronic schizophrenia Chief Complaint [facility] See order Reason for Visit Acute psychosis Chronic schizophrenia Schizoaffective disorder Chief Complaint [facility] Reason for Visit MYESHA (acute kidney in jury) Schizoaffective disorder Chief Complaint [facility] Reason for Visit Acute psychosis MYESHA (acute kidney injury) Chronic schizophrenia Schizoaffective disorder Chief Complaint Admit Date OP SP RT SHOULDER PAIN February 08 11:54am Reason for Visit Admit Date Closed fracture of right proximal humeru s February 08, 2025 11:54am Other specified postprocedural states Se [id number] 11:54am Additional Source Comments Evaluations & Outcomes (unre [...] EACH ADDL LESION LEFT Billy Ojeda MD [address] [place] [address] Status Reason Specialty Diagnoses / Procedures Referre d By Contact Referred To Contact Closed Radiology Diagnoses Abnormal mammogram Procedures US BREAST COMPLETE LEFT HC US BREAST COMP Billy Ojeda MD [address] [place] [address] [facility] Ultrasound [address] [place] [address] Status Reason Specialty Diagnoses / Procedures Referred By Contact Referred To Contact Pending Review Radiology Diagnoses Abnormal mammogram Procedures LINAD ERYN DIGITAL DIAGNOSTIC BILATERAL LINDA DIGITAL DIAGNOSTIC W OR WO CAD LEFT HC MAMMO DGX UNILATERAL INCL CAD IF PERF Billy Ojeda MD [address] [place] [address] [place] [address] [facility] [address] [place] [address] Status Reason Specialty Diagnoses / Procedures Referre d By Contact Referred To Contact Open Radiology Diagnoses Abnormal ultrasound of breast Lesion of breast Procedures US BREAST BIOPSY W LOC DEVICE 1ST LESION LEFT US GUIDED LEFT BREAST BIOPSY Billy Ojeda MD [address] [place] [address] [address] [place] [address] [facility] Ultrasound [address] [place] [address] Status Reason Specialty Diagnoses / Procedures Referre d By Contact Referred To Contact Closed Radiology Diagnoses Abnormal mammogram Procedures LINDA DIGITAL DIAGNOSTIC W OR WO CAD LEFT Billy Ojeda MD [address] [place] [address] [address] [place] [address] Status Reason Specialty Diagnoses / Procedures Referred By Contact Referred To Contact Pending Review Radiology Diagnoses Hyperprolactinemia Procedures HC MRI-BRAIN WO & W CONTRAST Karla Clark, SCRAP SEPARATOR - MINUTE CLERK FOR BASIC TRAFFIC [address] [place] [address] [facility] Mri [address] [place] [address] Status Reason Specialty Diagnoses / Procedures Referre d By Contact Referred To Contact Open Diagnoses Duct ectasia of breast, left Procedures US BREASt COMPLETE LEFT HC US BREAST COMP She Spencer APRN - CNM [address] [phone] Status Reason Specialty Diagnoses / Procedures Referre d By Contact Referred To Contact Closed Radiology Diagnoses History of breast biopsy Procedures LINDA ERYN DIGITAL DIAGNOSTIC BILATERAL She Spencer APRN - CNAlexey [address] [place] [address] [address] [place] [address] [facility] [address] [place] [address] Specialty Diagnoses / Procedures Referred By Contac t Referred To Contact Radiology Diagnoses Breast lump on right side at 4 o'clock position Procedures MRI BREAST BILATERAL W CONTRAST She Spencer APRN - CNAlexey [address] [place] [address] Dr [address] [place] [address] Referral ID Status Reason Start Date Expiration Date Visits Re quested Visits Authorized [id number] Closed 07/19/2021 07/19/2022 1 1 Specialty Diagnoses / Procedures Referred By Contac t Referred To Contact Cardiology Diagnoses Pre-operative clearance Abnormal EKG History of [place] (myocardial infarction) Procedures ECHO Complete 2D W Doppler W Color Héctor Turner MD [address] [place] [address] Referral ID Status Reason Start Date Expiration Date Visits Re quested Visits Authorized [id number] Closed 01/01/2022 01/01/2023 1 1 Specialty Diagnoses / Procedures Referred By Contac t Referred To Contact Dermatology Diagnoses neoplasm of uncertain behavior of skin Karla Clark MD [address] [place] [address] Dakota Mack MD [address] [place] [address] Referral ID Status Reason Start Date Expiration Date Visits Re quested Visits Authorized [id number] Closed 06/13/2023 12/10/2023 1 1 Reason Comments Patient Question Reason Comments Follow Up Reason Onset Date Comments Seek NC/NS 03/05/2024 Contact 03/06 and ask for update on status and note need of marya of being present for PT Eval to enable a rs. FU 03/09/2024 Contacted to req uest status of Gail in regards to Miguel was notified she was transferred over. I spoke to nurse and she said reading paperwork it details she had an PT screening there at [facility]; she replied she is going to look into and contact me back re: OP PT. Reason Comments Altered Mental Status Reason Comments Needs transport to intermediate Medical History (unrecognize d section and content) Description Patient gave verbal consent for 1000memories 08/31/2019 History of abnormal electrocardiogram History of asthma 07/31/2018 History of cardiovascular disorder 07/31 History of respiratory disorder 07/31/19 19 History of bipolar disorder NOS 07/31/19 19 History of depression 07/31/2018 History of psychiatric disorders 019 Description Last Updated A recent immunization for flu 05/06/2020 Patient gave verbal consent for [facility]ories 08/31/2019 History of abnormal electrocardiogram History of [...] NON STAFF Primary Care Provider Active Start: February 08, 2025 End: February 08, 2025 Emory Adame DO Attending Provider Active S tart: February 08, 2025 End: February 08, 2025 Team Status: Active Member Role Status Dates NON STAFF Primary Care Provider Active Team Status: Active Member Role Status Dates Karla Clark APRN CARDIO CLINICIAN-C Primary Care Provider Activ e Start: November [...] Status: Active Member Role Status Dates Karla M Amber , SCRAP SEPARATOR CARDIO CLINICIAN-C Primary Care Provider Activ e Team Status: Active Member Role Status Dates Karla Clark , RODNEY CARDIO CLINICIAN-C Primary Care Provider Activ e Monster Davis MD Attending Provider Active Team Status: Inactive Member Role Status Dates Karla Clark , SCRAP SEPARATOR CARDIO CLINICIAN-C Primary Care Provider Activ e Emory Adame , DO Attending Provider Active Screener And Blender Relationship Specialty Start Date End Date Karla Clark, SCRAP SEPARATOR - MINUTE CLERK FOR BASIC TRAFFIC [address] [place] [address] PCP - General 02/23/16 Screener And Blender Relationship Specialty Start Date End Date Karla Clark, SCRAP SEPARATOR - MINUTE CLERK FOR BASIC TRAFFIC [address] [place] [address] PCP - General 02/23/16 Screener And Blender Relationship Specialty Start Date End Date Karla Clark, SCRAP SEPARATOR - MINUTE CLERK FOR BASIC TRAFFIC [address] [place] [address] PCP - General 02/23/16 Screener And Blender Relationship Specialty Start Date End Date Karla Clark, SCRAP SEPARATOR - MINUTE CLERK FOR BASIC TRAFFIC [address] [place] [address] PCP - General 02/23/16 Team Status: Inactive Member Role Status Dates Emory Adame , Attending Provider Active Team Status: Inactive Member Role Status Dates Emory Adame DO Attending Provider Active Karla Clark , RODNEY CARDIO CLINICIAN-C Primary Care Provider Activ e Team Status: Inactive Member Role Status Dates Emory Adame DO Attending Provider Active PHYSICIAN NO FAMILY Primary Care Provider Active Team Status: Inactive Member Role Status Dates Karla Clark , RODNEY CARDIO CLINICIAN-C Primary Care Provider Activ e Zak Reza [...] Lisseth Galvan RN Other Provider Active Ragini Olamied , RN Other Provider Active Ana Alexey Milan , SCRAP SEPARATOR Other Provider Active Barbie Choi , DO [...] MD Other Provider Active Roseline Aguilar , CARDIO CLINICIAN-C Other Provider Active Jaswinder Robert MD Other Provider Active Titus Christianson MD Other Provider Active Kody Leon MD Other Provider Active Gibson Cid MD Other Provider Active Yolanda Davila , DO Other Provider Active Jeancarlos Bonilla , DO Other Provider Active Scottie Quinn , DO Other Provider Active Maddy Hallman , SCRAP SEPARATOR Other Provider Active Jose Huang , DO Other Provider Active Naga Lundberg MD Other Provider Active Leny Spencer , SCRAP SEPARATOR Other Provider Active Winnie Jenkins , SCRAP SEPARATOR Other Provider Active Greg Ocampo MD Other Provider Active Loy Rivers MD Other Provider Active Ludwig Amador , DO Other Provider Active Pinky Jewell SCRAP SEPARATOR Other Provider Active Alice Grimaldo RN Other Provider Active Team Status: Inactive Member Role Status Dates NON STAFF Primary Care Provider Active Joe Davis MD Admit Provider, Attending P jackie Active Cecilia Soares , TAWANNA Other Provider Active Florencia Pizarro , TAWANNA Other Provider Active Stacey Hudson , TAWANNA Other Provider Active Ann-Marie Sams , TAWANNA Other Provider Active Lisseth Galvan RN Other Provider Active Ragini Quiñonez RN Other Provider Active Chris Adam MD Other Provider Active Ana Alexey Milan , SCRAP SEPARATOR Other Provider Active Barbie Choi , DO Other Provider Active Braden Dill MD Other Provider Active Chandu Villafana , DO Other Provider Active Thomas Mendez MD Other Provider Active Kathrine Naik MD Other Provider Active Mariana Pryor , SCRAP SEPARATOR Other Provider Active Angel Haley MD Other Provider Active Link Salazar MD Other Provider Active Rosa Lowe MD Other Provider Active Brad Peng MD Other Provider Active Khalif Pettit , DO Other Provider Active Sherif Campbell MD Other Provider Active Francisco Keene MD Other Provider Active Roseline Aguilar , CARDIO CLINICIAN-C Other Provider Active Jaswinder Robert MD Other Provider Active Titus Christianson MD Other Provider Active Kody Leon MD Other Provider Active Gibson Cid MD Other Provider Active Yolanda Davila , DO Other Provider Active Jeancarlos Bonilla , DO Other Provider Active Scottie Quinn , DO Other Provider Active Maddy Hallman , SCRAP SEPARATOR Other Provider Active Jose Huang , DO Other Provider Active Naga Lundberg MD Other Provider Active Leny Spencer , SCRAP SEPARATOR Other Provider Active Winnie Jenkins , SCRAP SEPARATOR Other Provider Active Greg Ocampo MD Other Provider Active Loy Rivers MD Other Provider Active Ludwig Amador , DO Other Provider Active Pinky Jewell , SCRAP SEPARATOR Other Provider Active London Mccann , DO Other Provider Active Alice Grimaldo , TAWANNA Other Provider Active Team Status: Inactive Member Role Status Dates Joe Davis MD Admit Provider, Attending P jackie Active NON STAFF Primary Care Provider Active Cecilia Soares , RN Other Provider Active Florencia Pizarro , RN Other Provider Active Stacey Hudson , RN Other Provider Active Ann-aMrie Sams , RN Other Provider Active Lisseth Galvan , RN Other Provider Active Ragini Quiñonez , RN Other Provider Active Ana Milan , SCRAP SEPARATOR Other Provider Active Barbie Choi , DO Other Provider Active Braden Dill MD Other Provider Active Chandu Villafana , DO Other Provider Active Thomas Mendez MD Other Provider Active Kathrine Naik MD Other Provider Active Mariana Pryor , SCRAP SEPARATOR Other Provider Active Angel Haley MD Other Provider Active Link Salazar MD Other Provider Active Rosa Lowe MD Other Provider Active Brad Peng MD Other Provider Active Khalif Pettit , DO Other Provider Active Sherif Campbell MD Other Provider Active Francisco Keene MD Other Provider Active Roseline Aguilar NP-C Other Provider Active Jaswinder Robert MD Other Provider Active Titus Christianson MD Other Provider Active Kody Leon MD Other Provider Active Gibson Cid MD Other Provider Active Yolanda Davila , DO Other Provider Active Jeancarlos Bonilla , DO Other Provider Active Scottie Quinn , DO Other Provider Active Maddy Hallman , SCRAP SEPARATOR Other Provider Active Jose Huang , DO Other Provider Active Naga Lundberg MD Other Provider Active Leny Spencer , SCRAP SEPARATOR Other Provider Active Winnie Jenkins , SCRAP SEPARATOR Other Provider Active Greg Ocampo MD Other Provider Active Loy Rivers MD Other Provider Active Ludwig Amador , DO Other Provider Active Pinky Jewell , SCRAP SEPARATOR Other Provider Active Alice Grimaldo RN Other Provider Active Team Status: Inactive Member Role Status Dates NON STAFF Primary Care Provider Active Start: August 20, 2023 End: August 20, 2023 Alannah James , Attending Provider Active S tart: August 20, 2023 End: August 20, 2023 Screener And Blender Relationship Specialty Start Date End Date Deepti Britt MD [address] [facility] [address] [place] [address] Referring Ent - Otolaryngology 01/25/23 Screener And Blender Relationship Specialty Start Date End Date Deepti Britt MD [address] [facility] [address] [place] [address] Referring Ent - Otolaryngology 01/25/23 Team Status: Inactive Member Role Status Dates NON STAFF Primary Care Provider Active Start: December 16, 2023 End: December 24, 2023 EVAN Acosta-Mikala Emergency Provider Active Start: December 16, 2023 End: December 24, 2023 Joe Susan , MD Admit Provide r, Attending Provider Active Start: December 16, 2023 End: December 24, 2023 Team Status: Active Member Role Status Dates NON STAFF Primary Care Provider Active Start: December 18, 2023 Juve Spears PA-C Emergency Provider Active Start: December 18, 2023 Joe Davis MD Admit Provide r, Attending Provider, Other Provider Active Start: December 18, 2023 Screener And Blender Relationship Specialty Start Date End Date Kentrell Hurley DO [address] [facility] [address] [place] [address] PCP - General Family Medicine 02/18/24 Karla Clark MD [address] [place] [address] Referring Physician Family Medicine 08/28/23 Screener And Blender Relationship Specialty Start Date End Date Karla Clark APRN - MINUTE CLERK FOR BASIC TRAFFIC [address] [place] [address] PCP - General 02/23/16 Screener And Blender Relationship Specialty Start Date End Date Karla Clark APRN - MINUTE CLERK FOR BASIC TRAFFIC [address] [place] [address] PCP - General 02/23/16 Screener And Blender Relationship Specialty Start Date End Date Kentrell Hurley DO [address] [facility] [address] [place] [address] PCP - General Family Medicine 02/18/24 Karla Clark MD [address] [place] [address] Referring Physician Family Medicine 08/28/23 Screener And Blender Relationship Specialty Start Date End Date Kentrell Hurley DO [address] [facility] [address] [place] [address] PCP - General Family Medicine 02/18/24 Karla Clark MD [address] [place] [address] Referring Physician Family Medicine 08/28/23 Screener And Blender Relationship Specialty Start Date End Date Kentrell Hurley DO [address] [address] PCP - General Family Medicine 02/18/24 Karla Clark MD [address] [place] [address] Referring Physician Family Medicine 08/28/23 Screener And Blender Relationship Specialty Start Date End Date Kentrell Hurley DO [address] [address] PCP - General Family Medicine 02/18/24 Karla Clark MD [address] [place] [address] Referring Physician Family Medicine 08/28/23 Screener And Blender Relationship Specialty Start Date End Date Moe Avila DO [address] [place] [address] PCP - General Family Medicine 12/17/24 Team Status: Inactive Member Role Status Dates NON STAFF Primary Care Provider Active Start: February 08, 2025 End: February 08, 2025 Emory Adame DO Attending Provider Active S tart: February 08, 2025 End: February 08, 2025 INFORMATION SOURCE (unrecogn ized section and content) DATE CREATED AUTHOR 10/26/2021 [facility] DATE CREATED AUTHOR AUTHOR'S ORGANIZ ATION 11/10/2022 [facility] DATE CREATED AUTHOR AUTHOR'S ORGANIZ ATION 06/05/2023 [facility] DATE CREATED AUTHOR AUTHOR'S ORGANIZ ATION 09/29/2023 [facility] DATE CREATED AUTHOR AUTHOR'S ORGANIZ ATION 02/27/2024 [facility] DATE CREATED AUTHOR AUTHOR'S ORGANIZ ATION 06/14/2024 [facility] DATE CREATED AUTHOR AUTHOR'S ORGANIZ ATION 10/27/2024 [facility] DATE CREATED AUTHOR AUTHOR'S ORGANIZ ATION 12/11/2024 [facility] DATE CREATED AUTHOR AUTHOR'S ORGANIZ ATION 12/20/2024 [facility] Goals (unrecognized section and content) Goals may be documented in a n alternate section Source Comments (unrecognize d section and content) In the event this informatio n is protected by the Federal Confidentiality of Alcohol and Drug Abuse Patient Records regulations: The Federal rules restrict any use of the information to criminally investigate or prosecute any alcohol or drug abuse patient.[facility] the event this information is protected by the Federal Confidentiality of Alcohol and Drug Abuse Patient Records regulations: The Federal rules restrict any use of the information to criminally investigate or prosecute any alcohol or drug abuse patient.[facility] Scheduled Active and Recently Administ ered [...] BE BASED ON THE PRIMARY CLINICAL RECORDS. [employer] [facility]. provides no warranty or guarantee of the accuracy or completeness of information in this document.
[2025-02-17 23:26] LABS: Glucose Urine UA NEGATIVE (NEGATIVE)
[2025-02-17 23:33] LABS: Cast Seen? NONE SEEN #/LPF (NONE SEEN); Crystals Seen? None Seen #/HPF (None Seen); Urine Culture Indicated YES-FRMC
== END 2025-02-17 22:39 | disposition home or self-care (01) ==
LOC: LAB 22:38
PROVIDERS: PCP Nurse Practitioner Family; Visit Provider Family Medicine
DX: R53.83 Other fatigue (principal)
CPT/HCPCS: 81001; 87086

== ENCOUNTER 2025-02-18 14:18 | Outpatient (REF) | payer MEDICARE, MEDICAID, SELFPAY ==
--- OUTSIDE RECORDS SUMMARY | 2013-11-18 01:19 | XMS_ITS | Encounter Summary ---
Author Organization [facility] Address [address] [facility], [address] [place] [address] Care Team Providers Care Director Orange Name Role Phone MoisesNoe arcos Primary Care Provider [phone] Encounter Details Date Type Department Care Team (Late st Contact Info) Description 11/18/2013 1:19 AM EDT Hospital Encounter [facility] [address] [place], [place] [phone] Bety Munoz MD [address] [place], [place] [phone] Social History Tobacco Use Types Packs/Day Years [...] Description 04/19/2025 2:30 PM EST Office Visit [facility] [address] [facility] [address] - [address], [address] [place] [address] Paramjit Olvera MD [address] [facility] [place] [address] 3 month follow up documented as of [...] 173 <200 mg/dL 11/18/2013 9:24 AM EDT [facility] Comment: Cholesterol Guidelines: <200 Desirable 200-240 Borderline >240 Undesirable HDL 57 >40 mg/dL 11/18/2013 9:24 AM EDT [facility] Comment: HDL Guidelines: <40 Undesirable 40-59 Borderline >59 Desirable LDL Cholesterol 87 0 - 130 mg/dL 11/18/2013 9:24 AM EDT [facility] Comment: LDL Guidelines: <100 Desirable 100-129 Near to/above Desirable 130-159 Borderline >159 Undesirable Direct (measured) LDL and calculated LDL are not interchangeable tests. Chol/HDL Ratio 3.0 <5 11/18/2013 9:24 AM EDT [facility] Triglycerides 144 <150 mg/dL 11/18/2013 9:24 AM EDT [facility] Comment: Triglyceride Guidelines: <150 Desirable 150-199 Borderline 200-499 High >499 Very high Based on AHA Guidelines for fasting triglyceride, March 2012. VLDL 29 1 - 30 mg/dL 11/18/2013 9:24 AM EDT [facility] Comment: Performed at [address] [place] [address] ([phone] 11/18/2013 8:11 AM EDT 11/18/2013 8:12 AM EDT Bety Munoz MD CHEMISTRY ORDERABLES Final Res ult Performing Organization Address [facility]/ZIP Co de Phone Number [facility] [address] [place] [address] [phone] [facility] * [place] level (11/18/2013 8:11 AM EDT) [place] Lvl 0.8 0.6 - 1.2 mmol/L 11/18/2013 9:36 AM EDT [facility] [place] Dose Amount 0730 11/18/2013 8:18 AM EDT [facility] [place] Date Last Dose [phone] 11/18/2013 8:18 AM EDT [facility] [place] Dose Time 300 11/18/2013 8:18 AM EDT [facility] Comment: Performed at [address] [place] [address] ([phone] 11/18/2013 8:11 AM EDT 11/18/2013 8:12 AM EDT us Bety Munoz MD CHEMISTRY ORDERABLES Edited Re sult - Final Performing Organization Address [facility]/ZIP Co de Phone Number [facility] [address] [place] [address] [phone] [facility] * (ABNORMAL) Glucose, random (11/18/2013 8:11 AM EDT) Glucose 101(H) 70 - 99 mg/dL 11/18/2013 9:24 AM EDT [facility] Comment: Performed at [address] [place] [address] ([phone] 11/18/2013 8:11 AM EDT 11/18/2013 8:12 AM EDT us Bety Munoz MD CHEMISTRY ORDERABLES Final Res ult Performing Organization Address City/[facility]/ZIP Co de Phone Number [facility] [address] [place] [address] [phone] [facility] * Creatinine, serum (11/18/2013 8:11 AM EDT) Creatinine 0.84 0.50 - 0.90 mg/dL 11/18/2013 9:24 AM EDT [facility] GFR Non- >60 >60 mL/min 11/18/2013 9:24 AM EDT [facility] GFR >60 >60 mL/min 11/18/2013 9:24 AM EDT [facility] GFR Comment 11/18/2013 9:24 AM EDT [facility] Comment: Average GFR for 50-59 years old: 93 mL/min/1.73sq m Chronic Kidney Disease: <60 mL/min/1.73sq m Kidney failure: <15 mL/min/1.73sq m GFR Staging 11/18/2013 9:24 AM EDT [facility] Comment: Stage 1: Some kidney damage normal GFR Stage 2: Mild kidney damage GFR 60-89 Stage 3: Moderate kidney damage GFR 30-59 Stage 4: Severe kidney damage GFR 15-29 Stage 5: Severe kidney damage GFR <15 ESRD - chronic treatment by dialysis or transplant Performed at [address] [place] [address] ([phone] 11/18/2013 8:11 AM EDT 11/18/2013 8:12 AM EDT us Bety Munoz MD CHEMISTRY ORDERABLES Final Res ult Performing Organization Address City/[facility]/ZIP Co de Phone Number [facility] [address] [place] [address] [phone] [facility] * (ABNORMAL) BUN (11/18/2013 8:11 AM EDT) BUN 21(H) 6 - 20 mg/dL 11/18/2013 9:24 AM EDT [facility] Comment: Performed at [address] [place] [address] ([phone] 11/18/2013 8:11 AM EDT 11/18/2013 8:12 AM EDT us Bety Munoz MD CHEMISTRY ORDERABLES Final Res ult [facility] [address] [place], [place] [address] [phone] [facility] documented in this encounter Visit Diagnoses Not on filedocumented in this encounter Additional Health Concerns Infection Onset Date Last Indicated Resolved Time ESBL (Extended Spectrum Beta Lactamase) Comment:03/22/13 - urine - e.coli 03/24/2013 03/24/2013 documented as of this encounter Care Teams Director Orange Relationship Specialty Start Date End Date Noe De Leon DO [address] [place] [id number] PCP - General 08/01/13 04/11/14 documented as of this encounter
--- OUTSIDE RECORDS SUMMARY | 2014-04-16 03:20 | XMS_ITS | Encounter Summary ---
Author Organization [facility] Address [address], [address] [place] [address] Care Team Providers Care Gold Buyer Name Role Phone Alisa Robertson MD Primary Care Provider [phone] Encounter Details Date Type Department Care Team (Latest Contact Info) Description 04/16/2014 2:20 AM EST Hospital Encounter [facility] [address] [place] [address] Alisa Robertson MD [address] [place] [address] Overweight (BMI 25.0-29.9) Social History Tobacco [...] Description 04/19/2025 2:30 PM EST Office Visit [facility] [address] [facility] [address] - Ground Floor, [address] [place] [address] Paramjit Olvera MD [address] [facility] [place], [place] [id number] 3 month follow up documented as of [...] 04/16/2014 10:40 AM EST [facility] Specific [place], UA <1.005(L) 1.010 - 1.020 04/16/2014 10:40 AM EST [facility] Urine Hgb NEGATIVE NEG 04/16/2014 10:40 AM EST [facility] pH, UA 7.0 5.0 - 9.0 04/16/2014 10:40 AM EST [facility] Protein, UA NEGATIVE NEG 04/16/2014 10:40 AM EST [facility] Urobilinogen, Urine Normal NORM 04/16/2014 10:40 AM EST [facility] Nitrite, Urine NEGATIVE NEG 04/16/2014 10:40 AM EST [facility] Leukocyte Esterase, Urine NEGATIVE NEG 04/16/2014 10:40 AM EST [facility] Comment: Performed at [address] [place] [id number] ([phone] Urinalysis Comments NOT REPORTED [facility] 04/16/2014 9:1 7 AM EST 04/16/2014 9:18 AM EST Alisa Robertson MD URINE ORDERABLES Final Result Performing Organization Address [facility] [place] [facility]/ZIP Co de Phone Number [facility] [address] [place] [address] [facility] * T4, free (04/16/2014 9:17 AM EST) Thyroxine, Free 1.13 0.93 - 1.70 ng/dL 04/16/2014 10:46 AM EST [facility] Comment: Performed at [address] [place] [address] ([phone] BLOOD SPECIMEN / Unknown 04/16/2014 9:17 AM EST 04/16/2014 9:18 AM EST Alisa Robertson MD CHEMISTRY ORDERABLES Final Re sult Performing Organization Address [facility] [place] [facility]/ZIP Co de Phone Number [facility] [address] [place] [address] [facility] * TSH without Reflex (04/16/2014 9:17 AM EST) TSH 1.63 0.30 - 5.00 mIU/L 04/16/2014 10:46 AM EST [facility] Comment: Performed at [address] [place] [address] ([phone] BLOOD SPECIMEN / Unknown 04/16/2014 9:17 AM EST 04/16/2014 9:18 AM EST us Alisa Robertson MD CHEMISTRY ORDERABLES Final Re sult [facility] [address] [place] [address], [facility] [phone] [facility] documented in this encounter Visit Diagnoses Diagnosis Overweight (BMI 25.0-29.9) Overweight documented in this encounter Additional Health Concerns Infection Onset Date Last Indicated Resolved Time ESBL (Extended Spectrum Beta Lactamase) Comment:03/22/13 - urine - e.coli 03/24/2013 03/24/2013 documented as of this encounter Care Teams Gold Buyer Relationship Specialty Start Date End Date Alisa Robertson MD PCP - General 04/12/14 08/08/14 documented as of this encounter
--- OUTSIDE RECORDS SUMMARY | 2014-07-30 03:59 | XMS_ITS | Encounter Summary ---
Author Organization [facility] Address [address], [address] [place] [address] Care Team Providers Care Adult Services Librarian Name Role Phone Alisa Robertson MD Primary Care Provider [phone] Encounter Details Date Type Department Care Team (Late st Contact Info) Description 07/30/2014 2:59 AM EST Hospital Encounter [facility] Laboratory [address] [phone] Sony Holman MD [address] [phone] Social History Tobacco Use Types Packs/Day Years [...] Description 04/19/2025 2:30 PM EST Office Visit [facility] [address] [facility] [address] - [address] Floor, [address] [place] [address] Paramjit Olvera MD [address] [facility] [place], [place] [phone] 3 month follow up documented as of [...] [facility]: Performed at [address] [place] [address] ([phone] 07/30/2014 8:18 AM EST 07/30/2014 8:19 AM EST us Sony Holman MD CHEMISTRY ORDERABLES Gaby l Result [address] [address] [phone] [facility] * Thyroid Antibodies (07/30/2014 8:18 AM EST) Thyroglobulin Ab <20.0 0.0 - 40.0 IU/mL 08/02/2014 1:58 PM EST [facility] Thyroid Peroxidase (Tpo) Ab 34.4 0.0 - 35.0 IU/mL 08/02/2014 1:58 PM EST [facility] Comment:Performed at [address] [address] ([phone] 07/30/2014 8:18 AM EST 07/30/2014 8:19 AM EST Sony Holman MD IMMUNOLOGY ORDERABLES Fin al Result Performing Organization Address [facility]/ZIP Co de Phone Number [facility] [address] [place] [address] [facility] * T4, free (07/30/2014 8:18 AM EST) [facility] Thyroxine, Free 1.19 0.93 - 1.70 ng/dL 07/30/2014 9:47 AM EST [facility] Comment: Performed at [address] [place] [address] ([phone] 07/30/2014 8:18 AM EST 07/30/2014 8:19 AM EST Sony Holman MD CHEMISTRY ORDERABLES Gaby l Result Performing Organization Address [facility]/ZIP Co de Phone Number [facility] [address] [place] [address] [facility] documented in this encounter Visit Diagnoses Not on filedocumented in this encounter Additional Health Concerns Infection Onset Date Last Indicated Resolved Time ESBL (Extended Spectrum Beta Lactamase) Comment:03/22/13 - urine - e.coli 03/24/2013 03/24/2013 documented as of this encounter Care Teams Adult Services Librarian Relationship Specialty Start Date End Date Alisa Robertson MD PCP - General 04/12/14 08/08/14 documented as of this encounter
--- OUTSIDE RECORDS SUMMARY | 2015-03-22 01:20 | XMS_ITS | Encounter Summary ---
Author Organization [facility] Address [address] [facility], [address] [place] [address] Care Team Providers Care Outreach Assistant Name Role Phone MoisesNoe arcos Primary Care Provider [phone] Encounter Details Date Type Department Care Team (Late st Contact Info) Description 03/22/2015 1:20 AM EDT Hospital Encounter [facility] [address] [place], [place] [phone] Bety Munoz MD [address] [place], [place] [phone] Social History Tobacco Use Types Packs/Day Years [...] Description 04/19/2025 2:30 PM EST Office Visit [facility] [address] [facility] [address] - [address], [address] [place] [address] Paramjit Olvera MD [address] [facility] [place], [place] [id number] 3 month follow up documented as of [...] AM EDT [facility] Comment: Performed at [address] [place] [address] ([phone] 03/22/2015 8:51 AM EDT 03/22/2015 8:52 AM EDT us Bety Munoz MD CHEMISTRY ORDERABLES Final Res ult [facility] [address] [place] [address] [facility] * T4 (03/22/2015 8:51 AM EDT) T4, Total 7.7 4.5 - 12.0 ug/dL 03/22/2015 10:45 AM EDT [facility] Comment: Performed at [address] [place] [address] ([phone] 03/22/2015 8:51 AM EDT 03/22/2015 8:52 AM EDT us Bety Munoz MD CHEMISTRY ORDERABLES Final Res ult Performing Organization Address [facility]/ZIP Co de Phone Number [facility] [address] [place] [address] [facility] * Electrolyte Panel (03/22/2015 8:51 AM EDT) Sodium 144 135 - 144 mmol/L 03/22/2015 10:45 AM EDT [facility] Potassium 4.4 3.7 - 5.3 mmol/L 03/22/2015 10:45 AM EDT [facility] Chloride 106 98 - 107 mmol/L 03/22/2015 10:45 AM EDT [facility] CO2 26 20 - 31 mmol/L 03/22/2015 10:45 AM EDT [facility] Anion Gap 12 9 - 17 mmol/L 03/22/2015 10:45 AM EDT [facility] Comment: Performed at [address] [place] [address] ([phone] 03/22/2015 8:51 AM EDT 03/22/2015 8:52 AM EDT us Bety Munoz MD CHEMISTRY ORDERABLES Final Res ult Performing Organization Address City/[facility]/ZIP Co de Phone Number [facility] [address] [place] [address] [facility] * [place] level (03/22/2015 8:51 AM EDT) [place] Lvl 0.8 0.6 - 1.2 mmol/L 03/22/2015 10:36 AM EDT [facility] [place] Dose Amount HIDE 03/22/2015 8:54 AM EDT [facility] [place] Date Last Dose HIDE 03/22/2015 8:54 AM EDT [facility] [place] Dose Time HIDE 03/22/2015 8:54 AM EDT [facility] Comment: Performed at [address] [place] [address] ([phone] 03/22/2015 8:51 AM EDT 03/22/2015 8:52 AM EDT us Bety Munoz MD CHEMISTRY ORDERABLES Final Res ult Performing Organization Address City/State/[facility] Co de Phone Number [place] [phone] [phone] [facility] * Creatinine, serum (03/22/2015 8:51 AM EDT) Creatinine 0.90 0.50 - 0.90 mg/dL 03/22/2015 10:45 AM EDT [facility] GFR Non- >60 >60 mL/min 03/22/2015 10:45 AM EDT [facility] GFR >60 >60 mL/min 03/22/2015 10:45 AM EDT [facility] GFR Comment 03/22/2015 10:45 AM EDT [facility] Comment: Average GFR for 50-59 years old: 93 mL/min/1.73sq m Chronic Kidney Disease: <60 mL/min/1.73sq m Kidney failure: <15 mL/min/1.73sq m GFR Staging 03/22/2015 10:45 AM EDT [facility] Comment: Stage 1: Some kidney damage normal GFR Stage 2: Mild kidney damage GFR 60-89 Stage 3: Moderate kidney damage GFR 30-59 Stage 4: Severe kidney damage GFR 15-29 Stage 5: Severe kidney damage GFR <15 ESRD - chronic treatment by dialysis or transplant Performed at [address] [place] [id number] ([phone] 03/22/2015 8:51 AM EDT 03/22/2015 8:52 AM EDT us Bety Munoz MD CHEMISTRY ORDERABLES Final Res ult Performing Organization Address [facility]/ZIP Co de Phone Number [facility] [address] [place] [address] [facility] * Calcium (03/22/2015 8:51 AM EDT) Calcium 10.4 8.6 - 10.4 mg/dL 03/22/2015 10:45 AM EDT [facility] Comment: Performed at [address] [place] [address] ([phone] 03/22/2015 8:51 AM EDT 03/22/2015 8:52 AM EDT us Bety Munoz MD CHEMISTRY ORDERABLES Final Res ult Performing Organization Address [facility]/ZIP Co de Phone Number [facility] [address] [place] [address] [facility] * BUN (03/22/2015 8:51 AM EDT) BUN 16 6 - 20 mg/dL 03/22/2015 10:45 AM EDT [facility] Comment: Performed at [address] [place] [id number] ([phone] 03/22/2015 8:51 AM EDT 03/22/2015 8:52 AM EDT us Bety Munoz MD CHEMISTRY ORDERABLES Final Res ult Performing Organization Address [facility]/ZIP Co de Phone Number [facility] [address] [place] [address] [facility] documented in this encounter Visit Diagnoses Not on filedocumented in this encounter Additional Health Concerns Infection Onset Date Last Indicated Resolved Time ESBL (Extended Spectrum Beta Lactamase) Comment:03/22/13 - urine - e.coli 03/24/2013 03/24/2013 documented as of this encounter Care Teams Outreach Assistant Relationship Specialty Start Date End Date Noe De Leon DO PCP - General 11/25/14 06/25/15 documented as of this encounter
--- OUTSIDE RECORDS SUMMARY | 2015-11-15 08:10 | XMS_ITS | Encounter Summary ---
Author Organization [facility] Address [address] [facility], [address] [place] [address] Care Team Providers Care Admin Assistant Name Role Phone Fr[place]hamNoe arcos Primary Care Provider [phone] Encounter Details Date Type Department Care Team (Late st Contact Info) Description 11/15/2015 8:10 AM EDT Hospital Encounter [facility] [address] [place], [place] [phone] Bety Munoz MD [address] [place], [place] [phone] Social History Tobacco Use Types Packs/Day Years [...] 04/19/2025 2:30 PM EST Office Visit [facility] [place] [address] [facility] [address] - Ground Floor, [address] [place] [address] Paramjit Olvera MD [address] [facility] [place] [address] 3 month follow up documented as of [...] documented as of this encounter Care Teams Admin Assistant Relationship Specialty Start Date End Date Noe De Leon DO PCP - General 07/09/15 02/22/16 documented as of this encounter
--- OUTSIDE RECORDS SUMMARY | 2025-02-18 14:22 | XMS_ITS | Encounter Summary ---
Author Organization [facility] Address [address] [facility], [address] [place] [address] Care Team Providers Care Rehabilitation Case Coordinator Name Role Phone RumaHowieMoeshankar Schilling DO Primary Care Provider + [phone] Reason for Visit * Reason Comments Other Encounter Details Date Type Department Care Team (Late Contact Info) Description 08/11/2014 Refill [facility] ([facility] [address] [place] [phone] Misha Seals W, BUTTON TUFTER - POULTRY FARMWORKER [address] [place] [address] Other Social History Tobacco Use [...] Description 04/19/2025 2:30 PM EST Office Visit [facility] [address] [facility] [address], [address] [place] [address] Paramjit Olvera MD [address] [facility] [place] [address] 3 month follow up documented [...] documented as of this encounter Care Teams Rehabilitation Case Coordinator Relationship Specialty Start Date End Date Moe Hendrix DO [address] [place] [address] PCP - General Family Medicine 12/17/24 documented as of this encounter
--- OUTSIDE RECORDS SUMMARY | 2025-02-18 14:22 | XMS_ITS | Encounter Summary ---
Author Organization [facility] Address [address] [facility], [address] [place] [address] Care Team Providers Care Rent And Miscellaneous Remittance Clerk Name Role Phone RumaHowieMoeshankar Schilling DO Primary Care Provider + [phone] Reason for Visit * Reason Comments Other Encounter Details Date Type Department Care Team (Late Contact Info) Description 03/16/2014 Refill [facility] ([place]) [address] [place] [phone] Misha Seals W, ASSISTANT ACCOUNT EXECUTIVE - CORPORATE ATTORNEY [address] [place] [address] Other Social History Tobacco Use [...] 2:30 PM EST Office Visit [facility] [address] [facility] [address] [place] [address] Paramjit Olvera MD [address] [facility] [address] [place] [address] 3 month follow up documented as of this encounter Visit Diagnoses Not on filedocumented in this encounter Additional Health Concerns Infection Onset Date Last Indicated Resolved Time ESBL (Extended Spectrum Beta Lactamase) Comment:03/22/13 - urine - e.coli 03/24/2013 03/24/2013 documented as of this encounter Care Teams Rent And Miscellaneous Remittance Clerk Relationship Specialty Start Date End Date Moe Hendrix DO [address] [facility] [place] [address] PCP - General Family Medicine 12/17/24 documented as of this encounter
--- OUTSIDE RECORDS SUMMARY | 2025-02-18 14:22 | XMS_ITS | Encounter Summary ---
Author Organization [facility] Address [address] [facility], [address] [place] [address] Care Team Providers Care Talent Development Manager Name Role Phone LilianMoe mullen Shakir DUMONT Primary Care Provider + [phone] Reason for Visit * Reason Comments Medication Refill Encounter Details Date Type Department Care Team (Late Contact Info) Description 02/15/2020 Refill [facility] NEUR[facility] Part of [address] [place] [address] Bhupinder Iniguez MD [address] [place] [address] [address] [place] [address] Medication Refill Social History Tobacco [...] Description 04/19/2025 2:30 PM EST Office [facility] [address] [facility] [address] Floor, [address] [place] [address] [place] [address] [place], [place] [address] [address] [place] [address] 3 month follow up documented as of [...] documented as of this encounter Care Teams Talent Development Manager Relationship Specialty Start Date End Date Moe Hendrix DO [address] [place] [address] PCP - General Family Medicine 12/17/24 documented as of this encounter
--- OUTSIDE RECORDS SUMMARY | 2025-02-18 14:22 | XMS_ITS | Encounter Summary ---
Author Organization [facility] Address [address] [facility], [address] [place] [address] Care Team Providers Care Hyperion Administrator Name Role Phone Moe Hendrix Primary Care Provider +[phone] Encounter Details Date Type Department Care Team (Late st Contact Info) Description 06/11/2014 Telephone [facility] [address] [place] [phone] Alisa Robertson MD [address] [place] [address] Social History Tobacco Use Types Packs/Day [...] 04/19/2025 2:30 PM EST Office Visit [facility] [address] [facility] [address], [address] [place] [address] Paramjit Olvera MD [address] [facility] [place] [address] 3 month follow up documented as of this encounter Visit Diagnoses Not on filedocumented in this encounter Additional Health Concerns Infection Onset Date Last Indicated Resolved Time ESBL (Extended Spectrum Beta Lactamase) Comment:03/22/13 - urine - e.coli 03/24/2013 03/24/2013 documented as of this encounter Care Teams Hyperion Administrator Relationship Specialty Start Date End Date Moe Hendrix DO [address] [place] [address] PCP - General Family Medicine 12/17/24 documented as of this encounter
--- OUTSIDE RECORDS SUMMARY | 2025-02-18 14:22 | XMS_ITS | Encounter Summary ---
Author Organization [facility] Address [address] [facility], [address] [place] [address] Care Team Providers Care Continuous Absorption Process Operator Name Role Phone LilianMoe mullen Shakir DUMONT Primary Care Provider + [phone] Reason for Visit * Reason Comments Medication Refill Encounter Details Date Type Department Care Team (Late Contact Info) Description 09/09/2019 Refill [facility] NEUROLOGY Part of [address] [place] [address] Bhupinder Iniguez MD [address] [place] [address] [address] [place] [address] Medication Refill Social History Tobacco [...] 2:30 PM EST Office Visit [facility] [address] [facility] [address], [address] [place] [address] [place] [address] [place], [place] [address] [address] [place] [address] 3 month follow up documented as of [...] documented as of this encounter Care Teams Continuous Absorption Process Operator Relationship Specialty Start Date End Date Moe Hendrix DO [address] [place] [address] PCP - General Family Medicine 12/17/24 documented as of this encounter
--- OUTSIDE RECORDS SUMMARY | 2025-02-18 14:22 | XMS_ITS | Encounter Summary ---
Author Organization [facility] Address [address] [facility] [place] [address] Care Team Providers Care Claims Technician Name Role Phone Moe Hendrix Primary Care Provider + [phone] Reason for Visit * Reason Comments Other Encounter Details Date Type Department Care Team (Late Contact Info) Description 07/23/2014 Refill [facility] ([address] [phone] Alisa Robertson MD [address] [place] [address] Other Social History Tobacco Use [...] Description 04/19/2025 2:30 PM EST Office Visit [facility] [address] [facility] [address] Floor, [address] [place] [address] Paramjit Olvera MD [address] [facility] [place] [address] 3 month follow up documented as of this encounter Visit Diagnoses Not on filedocumented in this encounter Additional Health Concerns Infection Onset Date Last Indicated Resolved Time ESBL (Extended Spectrum Beta Lactamase) Comment:03/22/13 - urine - e.coli 03/24/2013 03/24/2013 documented as of this encounter Care Teams Claims Technician Relationship Specialty Start Date End Date Moe Hendrix DO [address] [place] [address] PCP - General Family Medicine 12/17/24 documented as of this encounter
--- OUTSIDE RECORDS SUMMARY | 2025-02-18 14:22 | XMS_ITS | Encounter Summary ---
Author Organization [facility] Address [address] [facility] [place] [address] Care Team Providers Care Applications Programmer Analyst Name Role Phone RumaMoe Shakir DUMONT Primary Care Provider + [phone] Reason for Visit * Reason Comments Medication Refill Encounter Details Date Type Department Care Team (Late st Contact Info) Description 02/24/2015 Refill [facility] ([place]) [address] [place] [phone] Misha Seals W, CLINICAL EDUCATION ACADEMIC COORDINATOR - CONVENTION SERVICES DIRECTOR [address] [place] [address] Medication Refill Social History Tobacco [...] 04/19/2025 2:30 PM EST Office Visit [facility] [address] [facility] [address], [address] [place] [address] Paramjit Olvera MD [address] [facility] [place] [address] 3 month follow up documented [...] documented as of this encounter Care Teams Applications Programmer Analyst Relationship Specialty Start Date End Date Moe Hendrix DO [address] [place] [address] PCP - General Family Medicine 12/17/24 documented as of this encounter
--- OUTSIDE RECORDS SUMMARY | 2025-02-18 14:22 | XMS_ITS | Encounter Summary ---
Author Organization [facility] Address [address] [facility], [address] [place] [address] Care Team Providers Care Director Law Enforcement Name Role Phone RumaMoe Shakir DUMONT Primary Care Provider + [phone] Reason for Visit * Reason Comments Medication Refill Encounter Details Date Type Department Care Team (Late st Contact Info) Description 02/16/2015 Refill [facility] ([place] [address] [place] [phone] Misha Seals W, HEEL EDGE INKER MACHINE - BULK PLANT SUPERVISOR [address] [place] [address] Medication Refill Social History Tobacco [...] 2:30 PM EST Office Visit [facility] [address] [facility] [address] - [address] Floor, [address] [place] [address] Paramjit Olvera MD [address] [facility] [place] [address] 3 month follow up documented [...] as of this encounter Care Teams Director Law Enforcement Relationship Specialty Start Date End Date Moe Hendrix DO [address] [place] [address] PCP - General Family Medicine 12/17/24 documented as of this encounter
--- OUTSIDE RECORDS SUMMARY | 2025-02-18 14:22 | XMS_ITS | Encounter Summary ---
Author Organization [facility] Address [address] [facility], [address] [place] [address] Care Team Providers Care Official Court Interpreter Name Role Phone Ruma Moe Schilling DO Primary Care Provider + [phone] Reason for Visit * Reason Comments Other Encounter Details Date Type Department Care Team (Late Contact Info) Description 03/11/2014 Refill [facility] ([place] [address] [place] [phone] Misha Seals W, FOURDRINIER WIRE WEAVER - TOE CLOSING MACHINE TENDER [address] [place] [address] Other Social History Tobacco Use [...] 2:30 PM EST Office Visit [facility] [address] [facility] [address] - [address] Floor, [address]2 [place] [address] Paramjit Olvera MD [address] [facility] [address] [place] [address] 3 month follow up documented as of this encounter Visit Diagnoses Not on filedocumented in this encounter Additional Health Concerns Infection Onset Date Last Indicated Resolved Time ESBL (Extended Spectrum Beta Lactamase) Comment:03/22/13 - urine - e.coli 03/24/2013 03/24/2013 documented as of this encounter Care Teams Official Court Interpreter Relationship Specialty Start Date End Date Moe Hendrix DO [address] [facility] [place] [address] PCP - General Family Medicine 12/17/24 documented as of this encounter
--- OUTSIDE RECORDS SUMMARY | 2025-02-18 14:22 | XMS_ITS | Encounter Summary ---
Author Organization [facility] Address [address] [facility], [address] [place] [address] Care Team Providers Care Tag Stringer Name Role Phone Ruma Moe Schilling DO Primary Care Provider + [phone] Reason for Visit * Reason Comments Other Encounter Details Date Type Department Care Team (Late Contact Info) Description 12/13/2014 Refill [facility] ([place]) [address] [place] [phone] Misha Seals W, JIG BORE TOOL MAKER - ADVANCED QUALITY ENGINEER [address] [place] [address] Other Social History Tobacco Use [...] Description 04/19/2025 2:30 PM EST Office [facility] [address] [facility] [address] - [address] Floor, [address] [place] [address] Paramjit Olvera MD [address] [facility] [address] [place] [address] 3 month follow up documented [...] documented as of this encounter Care Teams Tag Stringer Relationship Specialty Start Date End Date Moe Hendrix DO [address] [place] [address] PCP - General Family Medicine 12/17/24 documented as of this encounter
--- OUTSIDE RECORDS SUMMARY | 2025-02-18 14:22 | XMS_ITS | Encounter Summary ---
Author Organization [facility] Address [address] [facility], [address] [place] [address] Care Team Providers Care Ultrasonic Seaming Machine Operator Name Role Phone Ruma Moe Schilling DO Primary Care Provider + [phone] Reason for Visit * Reason Comments Other Encounter Details Date Type Department Care Team (Late Contact Info) Description 12/29/2014 Refill [facility] ([place]) [address] [place] [phone] Misha Seals W, FLOOR ASSEMBLER - SOUND INSTALLATION WORKER [address] [place] [address] Other Social History Tobacco Use [...] 04/19/2025 2:30 PM EST Office [facility] [address] [facility] [address] - [address] Floor, [address] [place] [address] Paramjit Olvera MD [address] [facility] [address] [place] [address] 3 month follow up documented [...] documented as of this encounter Care Teams Ultrasonic Seaming Machine Operator Relationship Specialty Start Date End Date Moe Hendrix DO [address] [place] [address] PCP - General Family Medicine 12/17/24 documented as of this encounter
--- OUTSIDE RECORDS SUMMARY | 2025-02-18 14:22 | XMS_ITS | Encounter Summary ---
Author Organization [facility] Address [address] [facility], [address] [place] [address] Care Team Providers Care [employer] Humanities Teacher Name Role Phone Moe Hendrix DO Primary Care Provider + [phone] Reason for Visit * Reason Comments Medication Refill Encounter Details Date Type Department Care Team (Late st Contact Info) Description 01/11/2017 Refill [facility] Neurology specialist [address] [place] [phone] Toby Vasquez DO [address] [place], [place] [phone] Medication Refill Social History Tobacco Use Types [...] EST Office Visit [facility] [address] [facility] [address] - [address] Floor, [place] [place] [address] Paramjit Olvera MD [address] [facility] [place] [address] 3 month follow up documented [...] documented as of this encounter Care Teams [employer] Humanities Teacher Relationship Specialty Start Date End Date Moe Hendrix DO [address] [place] [address] PCP - General Family Medicine 12/17/24 documented as of this encounter
--- OUTSIDE RECORDS SUMMARY | 2025-02-18 14:22 | XMS_ITS | Patient Health Record ---
Author Organization [facility] [employer] [facility] Address [address] [place] [address] Care Team Providers Care Mixing Roll Operator Name Role Phone Dr. Yandel Ball Primary Care Provider Reason For Referral No Information Plan Of Treatment No Information Insurance Providers Payer Name Payer Address Payer Phone Subscriber Number Group Number Insured Name Patient Relationship to Insured Coverage Start Date Coverage End Date zCARESOUR CE-termed [address] [place] [address] [id number] MARTÍNEZ ALMEIDA Self - patient is the insured 2 3 [employer]our[employer] [place] [address] [place] [address] [id number] MARTÍNEZ ALMEIDA Self - patient is the insured 3 zMEDICAID CFC after [employer]C E-termed 22 [address] [place] [address] [id number] MARTÍNEZ ALMEIDA Self - patient is the insured 2 3 Wrap CFC CareSourc e [address] [place] [address] [phone] [id number] MARTÍNEZ ALMEIDA Self - patient is the insured 3 Dental Care[employer]ourc e DQ [place] [address] [place] [phone] [id number] MARTÍNEZ ALMEIDA Self - patient is the insured 3 Dental Wrap [facility] [address] [place] [address] [id number] MARTÍNEZ ALMEIDA Self - patient is the insured 3 DENTAL MEDICAID [place] [address] [place] [address] [id number] MARTÍNEZ ALMEIDA Self - patient is the insured 2 3
--- OUTSIDE RECORDS SUMMARY | 2025-02-18 14:22 | XMS_ITS | Encounter Summary ---
Author Organization [facility] Address [address] [facility], [address] [place] [address] Care Team Providers Care Concrete Tile Machine Operator Name Role Phone RumaMoe Shakir DUMONT Primary Care Provider + [phone] Reason for Visit * Reason Comments Medication Refill Encounter Details Date Type Department Care Team (Late st Contact Info) Description 01/11/2015 Refill [facility] [address] [place] [phone] Misha Seals W, CAT WAGON OPERATOR - PHYSICAL THERAPY ASST [address] [place] [address] Medication Refill Social History Tobacco [...] Description 04/19/2025 2:30 PM EST Office Visit [facility] [address] [facility] [address] - [address] Floor, [address] [place] [address] Paramjit Olvera MD [address] [facility] [place] [address] 3 month follow up documented [...] documented as of this encounter Care Teams Concrete Tile Machine Operator Relationship Specialty Start Date End Date Moe Hendrix DO [address] [place] [address] PCP - General Family Medicine 12/17/24 documented as of this encounter
--- OUTSIDE RECORDS SUMMARY | 2025-02-18 14:23 | XMS_ITS | Clinical Summary ---
Author Organization [facility] Address [address] [facility], [address] [place] [address] Care Team Providers Care Pharmacy Customer Care Specialist Name Role Phone LilianchayoMoe chaidez Shakir DUMONT Primary Care Provider [phone] Allergies Active Allergy Reactions Criticality Noted Date [...] neuro 2016. for reported migraines. 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 Chest pain 05/04/2014 Abnormal ECG 05/04/2014 Tobacco abuse 05/04/2014 Depression 05/04/2014 COPD (chronic obstructive pulmonary disease) 07/2013 Bipolar disorder 05/04/2014 Atypical chest pain Resolved Problems Problem Noted Date Diagnosed Date Resolved Date Colon cancer screening 11/30/201303/31 Encounters Date Type Department Care Team Description 12/17/2024 8:30 AM EDT - 12/19/2024 11:59 PM EDT Hospital Encounter [facility] Non-Invasive Cardiology [address] [place] [address] Wood Turner MD Abnormal EKG; RBBB; History of DC (myocardial infarction); Tobacco abuse counseling Discharge Disposition: Home or Self Care 12/17/2024 Results Follow-Up [facility] Cardiology [address] [place] [address] [place], [place] [phone] Wood Turner MD 12/07/2024 1:40 PM EDT Office Visit [facility] CARDIOLOGY Part of [address] [address] Wood Turner MD Abnormal EKG (Primary Dx); RBBB; History of DC (myocardial infarction); Tobacco abuse counseling from Last [...] 2:30 PM EST Office Visit [facility] [address] [facility] [address] - [address] Floor, [address] [place] [address] Paramjit Olvera MD [address] [facility] [place] [address] 3 month follow up Health Maintenance Due [...] AM EDT Abnormal EKG RBBB History of DC (myocardial infarction) Tobacco abuse counseling COMPREHENSIVE METABOLIC PANEL Stat [employer] Label print 04/23/2024 1:30 PM EST EMPLOYEE COMMUNICATIONS INTERN CYTOLOGY Routine 08/16/2022 7:57 AM EDT LINDA [...] 100 % BS CV CPACS LA Minor [place] 4.6 cm [facility] CV CPACS LA Major [place] 4.5 cm [facility] CV CPACS LA Area [...] BS CV CPACS LV RWT Ratio 0.81 [facility] CV CPACS LV Mass 2D 171.6(A) 67 - 162 g BS CV CPACS LV Mass 2D Index 101.6(A) 43 - 95 g/m2 BS CV CPACS MV E/A 0.38 BS CV CPACS E/E' Lateral 4.84 BS CV CPACS LA Volume Index BP 15(A) 16 - 34 ml/m2 BS CV CPACS LA Volume Index MOD A2C 13(A) 16 - 34 ml/m2 [facility] CV CPACS LA Volume Index MOD A4C 18 16 - 34 ml/m2 [facility] CV CPACS Aortic Sinus Valsalva Index 1.72 cm/m2 [facility] CV CPACS Ascending Aorta Index 1.60 cm/m2 [facility] CV CPACS AV Velocity Ratio 1.00 [facility] CV CPACS LVOT:AV VTI Index 0.84 [facility] CV CPACS Est. RA Pressure 3 mmHg BS CV CPACS RVSP 14 mmHg [facility] CV CPACS EF Physician 65 % [facility] CV CPACS Anatomical Region Laterality Modality [...] - 10.4 mg/dL 04/23/2024 1:30 PM EST [facility] Total Protein 6.4(L) 6.6 - 8.7 g/dL 04/23/2024 1:30 PM EST [facility] Albumin 4.2 3.5 - 5.2 g/dL 04/23/2024 1:30 PM EST [facility] Albumin/Globulin Ratio 1.9 1.0 - 2.5 04/23/2024 1:30 PM EST [facility] Total Bilirubin <0.2 0.0 - 1.2 mg/dL 04/23/2024 1:30 PM EST [facility] Alkaline Phosphatase 116(H) 35 - 104 U/L 04/23/2024 1:30 PM EST [facility] ALT 19 10 - 35 U/L 04/23/2024 1:30 PM EST [facility] AST 17 10 - 35 U/L 04/23/2024 1:30 PM EST [facility] Blood BLOOD SPECIMEN / Unknown 04/23/2024 1:30 PM EST 04/23/2024 1:35 PM EST us Jesus Mims MD CHEMISTRY ORDERABLES Final Resul t [facility] [address] [place] [address] * EMPLOYEE COMMUNICATIONS INTERN Cytology (08/16/2022 7:57 AM EDT) Cytology Report INTERPRETATION Cervical material, (ThinPrep vial, Imaging-assisted review): Specimen Adequacy: Satisfactory for evaluation. Descriptive Diagnosis: Negative for intraepithelial lesion or malignancy. Glass Beveller: ROSY ARCHIBALD(ASCP) Electronically Signed Out /08/24/2022 Source: A: Cervical material, (ThinPrep vial, Imaging-assisted review) Clinical History Hysterectomy Z12.4 Encounter for screening for malignant neoplasm of cervix GYNECOLOGIC CYTOLOGY REPORT Patient Name: MARTÍNEZ ALMEIDA [facility] Rec: [id number] Path Number: [id number] [facility] ANATOMIC PATHOLOGY [address] [place], [place] [phone] [facility] CERVICAL MATERIAL 08/16/2022 7:57 AM EDT 08/17/2022 7:57 AM EDT She Spencer HAT AND CAP SEWER - CNM PATHOLOGY/CYTOLO GY ORDERABLES Final Result [facility] [address] [place] [address], [facility] [phone] [facility] [address] [place], [place] [address] [phone] * LINDA ERYN DIGITAL DIAGNOSTIC BILATERAL (11/11/2020 [...] to the patient regarding the results. The [employer] recommends annual mammograms for [...] 08, 2020 is not visible. She Spencer HAT AND CAP SEWER - CN IM MAMMOGRAPHY ORDERABLES Final Result * (ABNORMAL) Lipid Panel (07/14/2020 7:00 AM EST) Cholesterol 151 <200 mg/dL 07/14/2020 7:00 AM EST [facility] Comment: Cholesterol Guidelines: <200 Desirable 200-240 Borderline >240 Undesirable HDL 42 >40 mg/dL 07/14/2020 7:00 AM EST [facility] Comment: HDL Guidelines: <40 Undesirable 40-59 Borderline >59 Desirable LDL Cholesterol 79 0 - 130 mg/dL 07/14/2020 7:00 AM EST [facility] Comment: LDL Guidelines: <100 Desirable 100-129 Near to/above Desirable 130-159 Borderline >159 Undesirable Direct (measured) LDL and calculated LDL are not interchangeable tests. Chol/HDL Ratio 3.6 <5 07/14/2020 7:00 AM EST [facility] Comment: Triglycerides 151(H) <150 mg/dL 07/14/2020 7:00 AM EST [facility] Comment: Triglyceride Guidelines: <150 Desirable 150-199 Borderline 200-499 High >499 Very high Based on AHA Guidelines for fasting triglyceride, March 2012. VLDL NOT REPORTED 1 - 30 mg/dL 07/14/2020 7:00 AM EST [facility] 07/14/2020 7:00 AM EST 07/18/2020 10:38 AM EST Lolis Mccormick MD CHEMISTRY ORDERABLES Final Resul t [facility] [address] [place] [address], [facility] [phone] [facility] [address] [place] [address], [facility] [phone] * DEXA BONE DENSITY AXIAL SKELETON (02/25/2019 [...] lumbar spine and left hip on a [employer] system. COMPARISON: None. HISTORY: ORDERING SYSTEM PROVIDED [...] lumbar spine and left hip on a [employer] system. COMPARISON: None. HISTORY: ORDERING SYSTEM PROVIDED [...] #1 NEGATIVE NEGATIVE 02/06/2019 10:00 AM EDT [facility] Date, Stool #1 [phone] 02/06/2019 10:00 AM EDT [facility] Time, Stool #1 1,000 02/06/2019 10:00 AM EDT [facility] Occult Blood, Stool #2 NOT REPORTED NEGATIVE 02/06/2019 10:00 AM EDT [facility] Date, Stool #2 NOT REPORTED 02/06/2019 10:00 AM EDT [facility] Time, Stool #2 NOT REPORTED 02/06/2019 10:00 AM EDT [facility] Occult Blood, Stool #3 NOT REPORTED NEGATIVE 02/06/2019 10:00 AM T [facility] Date, Stool #3 NOT REPORTED 02/06/2019 10:00 AM T [facility] Time, Stool #3 NOT REPORTED 02/06/2019 10:00 AM T [facility] STOOL SPECIMEN / Unknown 02/06/2019 10:00 AM EDT 02/06/2019 1:32 PM EDT She Diaz CNM BODY FLUIDS AND STOOLS ORDERABLES Final Result [facility] [address] [place] [address], [facility] [phone] * Hemoglobin A1C (08/10/2016 12:53 PM EST) Hemoglobin A1C 5.8 4.8 - 5.9 % 08/10/2016 2:34 PM EST [facility] Estimated Avg Glucose 120 mg/dL 08/10/2016 2:34 PM EST [facility] Comment: The ADA and AACC recommend providing the estimated average glucose result to permit better patient understanding of their HBA1c result. Performed at [address] [place] [address] ([phone] 08/10/2016 12:5 3 PM EST 08/10/2016 12:54 PM EST us Yen Crocker HAT AND CAP SEWER - WINDOWS SOFTWARE ENGINEER CHEMISTRY ORDERABLES F inal Result [facility] [address] [place] [address] 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
--- OUTSIDE RECORDS SUMMARY | 2025-02-18 14:38 | XMS_ITS | CCD ---
Author Organization [facility] [place] Care Team Providers Care Reimbursement Rep Name Role Phone Karla Clark Unavailable Unavailable Sprout Unavailable Unavailable Kristine Beavers Unavailable Unavailable Amber, Karla Unavailable Unavailable Amber, Karla Unavailable Unavailable JORGE Unavailable Unavailable Karla Clark Primary Care Physician Unavailab le Sprout Unavailable Unavailable Beavers Kristine Unavailable Unavailable Amber Karla Unavailable Unavailable Karla Clark Primary Care Provider Karla Clark Primary Care Provider Karla Clark Primary Care Provider Karla Clark Primary Care Provider [phone] Amber METAL BONDING PRESS OPERATOR - CLINICAL PHARMACY TECHNICIAN, Karla M Primary Care Provider Karla Clark CNP Primary Care Provider Karla Clark CNP Unavailable Roseline Meraz Primary Care Physician [phone] Amber STEVENS - DAKSHA, Karla M Primary Care Provider Amber METAL BONDING PRESS OPERATOR - DAKSHA, Karla M Primary Care Provider Amber CROOKS Karla Primary Care Provider Emory Adame Unavailable DO Emory Adame Attending Provider RODNEY Clark Primary Care Provider [phone] NO FAMILY, PHYSICIAN Primary Care Provider Unava [...] Care Provider DO Emory Adame Attending Provider [phone] MD Monster Davis Attending Provider RODNEY Clark Primary Care Provider Pay, DO Crespo Attending Provider [phone] MD Joe Davis Admit Provider MD Joe [...] Other Provider MD Thomas Mendez Other Provider [phone] MD Kathrine Naik Other Provider Chilango, ANP-BC Mariana Other Provider MD Angel Haley Other Provider MD Link Salazar Other Provider MD Rosa Lowe Other Provider MD Brad Peng Other Provider DO Khalif Pettit Other Provider Seffo, MD Firas Other Provider MD Francisco Keene Other Provider STEVEN AguilarC Roseline Ponce Other Provider [phone] MD Jaswinder Robert Other Provider MD Titus [...] Clark Karla M Primary Care Provider [phone] MD Joe Davis Attending Provider NON STAFF Primary Care Provider UnavailHANDY Garcia Emergency Provider [phone] MD Joe Davis Admit Provider Amber CROOKS, [...] Kentrell Hurley DO Primary Care Provider Amber METAL BONDING PRESS OPERATOR - CLINICAL PHARMACY TECHNICIAN, Karla M Primary Care Provider NON STAFF [...] Hospital Aspirin (1 source) Aspirin Drug Allergy [facility] Barbiturates (1 source) Barbiturates Drug Allergy [...] sources) aspirin; Translations: [aspirin] Drug Allergy 023 [facility] Comment on above: 04/10/2016 - angelo (20 sources) codeine; Translations: [Codeine] Drug Allergy unknown [facility] (20 sources) Penicillins; Translations: [PENICILLINS] Allergy to substance (disorder) Turning blue, Other: See Comments [facility] (20 sources) sulfamethoxazole / trimethoprim; Translations: [Bactrim DS] Drug Allergy [facility] (20 sources) Sulfonamides (Antibiotic); Translations: [Sulfa sensitivity] Allergy to substance (disorder) [facility] (20 sources) -Other; Translations: [-Other] Allergy to substance (disorder) Barbiturates, and amphetamines [facility] (6 sources) -No Known Food Allergies Allergy to substance (disorder) [facility] (20 sources) -No Environmental Allergies; Translations: [-No Environmental Allergies] Allergy to substance (disorder) [facility] (4 sources) Aspirin; Translations: [aspirin] Drug Allergy 023 Tremor (finding), Other: See Comments [facility] Comment on above: 04/10/2016 - ke (20 sources) Aluminum aspirin Drug Allergy [place] (20 sources) Barbiturates; Translations: [BARBITURATES] Propensity to adverse reactions to drug 014 Other (See Comments) [place] (20 sources) FLUoxetine; Translations: [fluoxetine] Drug Allergy 014 Feels weird, Unknown [place] (20 sources) FLUoxetine Drug Allergy 014 [place] (20 sources) Ibuprofen; Translations: [IBUPROFEN] Drug Allergy 018 [place] (20 sources) Meperidine; Translations: [meperidine] Drug Allergy 018 [place] (20 sources) predniSONE Drug Allergy [place] (20 sources) Sulfamethoxazole / Trimethoprim; Translations: [sulfamethoxazole-t rimethoprim] Drug Allergy [place] (20 sources) Sulfonamides (Antibiotic) Propensity to adverse reactions to drug [place] (20 sources) Amphetamines Propensity to adverse reactions to drug [place] (20 sources) Metals Allergy to substance [facility] (20 sources) Aluminum-Containing Compounds Propensity to adverse reactions to drug [place] (1 source) Penicillin; Translations: [penicillin] Drug Allergy Cyanosis (finding) [facility] (1 source) Sulfonamides (Antibiotic); Translations: [sulfa drugs] Drug allergy [facility] (14 sources) Sulfonamides (Antibiotic) Propensity to adverse reactions to drug Intolerance [facility] [employer] Work Phone: (7 sources) Amphetamine aspartate / Amphetamine Sulfate / Dextroamphetamine saccharate / Dextroamphetamine Sulfate Drug Allergy pain [employer] Other (13 sources) Penicillin G Drug Allergy 024 anaphylaxis [facility] (7 sources) Sulf-10 Drug allergy odor producing [facility] Other (16 sources) Sulfonamides (Antibiotic); Translations: [SULFA (SULFONAMIDE ANTIBIOTICS)] Allergy to substance nausea; strange odor , nausea; strange odor , odor producing [facility] (7 sources) Barbiturate Drug allergy Unknown [facility] (8 sources) Amphetamine Drug Allergy pain [facility] (2 sources) Aspirin Drug Allergy [facility] (2 sources) Barbiturates Drug allergy (disorder) [facility] (2 sources) FLUoxetine Drug Allergy [facility] (1 source) FLUoxetine Drug Allergy [facility] (1 source) Ibuprofen Drug Allergy [facility] (1 source) Meperidine Drug Allergy 023 [facility] (1 source) predniSONE Drug Allergy [facility] (2 sources) Sulfamethoxazole / Trimethoprim Drug Allergy 013 [facility] (1 source) Sulfonamides (Antibiotic) Drug allergy (disorder) 013 [facility] (9 sources) Sulfamethoxazole; Translations: [sulfamethoxazole] Drug Allergy Unknown Reaction [facility] (17 sources) Trimethoprim; Translations: [trimethoprim] Drug Allergy Unknown Reaction [facility] (8 sources) Barbiturate Drug Allergy [facility] (8 sources) Prednisone Propensity to adverse reactions [facility] (12 sources) traZODone; Translations: [trazodone] Drug Allergy restlessness [facility] (1 source) Amphetamine Drug Allergy [facility] (1 source) Aspirin Drug Allergy [facility] (1 source) Barbiturates Drug allergy (disorder) [facility] (1 source) FLUoxetine Drug Allergy [facility] (1 source) Ibuprofen Drug Allergy [facility] (1 source) Meperidine Drug Allergy [facility] (1 source) Penicillin Drug Allergy [facility] Medications Current Medications Medication Drug [...] Oral Tablet 11/17/2020 Provider: Karla Clark CNP [id number] 200 actuat albuterol 0.09 mg/actuat metered dose [...] by mouth two times a day. amylase [id number] unt / lipase 9000 unt / protease [id number] unt oral capsule (18 sources) take 1 capsule by mouth two times weekly Digestive Enzymes (ACIDOLL) CAPS Take by mouth Twice a Week Active Digestive Enzyme s (Bevitrol) capsule Take 1 capsule by mouth Active take 1 capsule by mo ut once daily at mealtime nxpgyn-xygoiwni-vfvpgbd (ENZADYNE) 9,000-112,500- 112,500 unit capsule Take 1 capsule by mouth daily with food. 0 Active Comment on above: Take 1 capsule by mo [facility] daily with food. B12 Folate [...] Start: 06-28-2018 End: 05-02-2020 BENZTROPINE 0.5 MG [facility] 06/04 - 05/02/2020 Provider: Start: 06-28-2018 End: 06-28-2018 BENZTROPINE 0.5 MG [facility] 06/04 - 06/28/2018 Provider: Start: 06-28-2018 End: 06-28-2018 BENZTROPINE 0.5MG [facility] 06/28 - 06/28/2018 Provider: take 1 tablet by [facility] every twenty-four hours Benztropine Mesylate 0.5 MG 1 tablet at bedtime Orally Once a day Active Comment on above: Take 0.5 mg by mouth two times a day. brompheniramine maleate 0.4 mg/ml / dextromethorphan hydrobromide 2 mg/ml / pseudoephedrine hydrochloride 6 mg/ml oral solution (20 sources) alpha-Adrenergic Agonist, Uncompetitive G-krcpej-Y-aspartate Receptor Antagonist, Sigma-1 Agonist Start: 09-04-2018 Bromfed [...] 06-28-2018 CALCIUM CARBONATE 500 mg calcium(1,250 MG) [facility] 06/28/2018 - 06/28/2018 Provider: End: 01-11-2016 take [...] 100 mg oral granules (20 sources) Uncompetitive K-loskob-I-aspartate Receptor Antagonist, Sigma-1 Agonist Start: 08-15-19 Dextromethorphan [...] route twice daily Fluticasone Propionate 50 mcg/actuation [place],Suspension Discontinued 1 SPRAY INTRANASAL Twice daily September [...] adequate fluid and sodium intake Start: 10-08-2023 [place] Carbon ate 300 MG Oral Tablet 10/08/2023 Provider: Start: 08-20-2023 take 1 capsule by mo uth twice daily Start: 09-11-2022 End: 03-12-2023 take 1 capsule by mouth once daily at bedtime [place] Carbonate 300 mg capsule Discontinued 300 MG PO Daily at bedtime September 11, 2022 12:00am March 12, 2023 5:59am Start: 09-11-2022 End: 10-15-2023 take 1 capsule by mouth twice daily [place] Carbonate 150 mg capsule Discontinued 150 MG PO Twice daily September 11, 2022 12:00am August 20, 2023 8:53am Start: 09-11-2022 take 150 mg by mouth once daily in the morning [place] Carbonate Active 150 MG PO Every morning September 11, 2022 12:00am Start: 06-28-2018 End: 02-21-2023 [place] Carbonate 300MG Oral Tablet 07/31/2018 - 02/21/2023 [...] by mouth twice daily in the evening [place] Carbonate ER 300 MG 1 tablet am [...] 06-12-2016 End: 07-23-2019 NICOTINE 14 MG/24 HR [facility] 06/12/2016 - 07/23/2019 Provider: Start: 06-12-2016 End: 06-12-2016 NICOTINE 14 MG/24 HR [facility] 06/12/2016 - 06/12/2016 Provider: Start: 06-12-2016 End: 06-12-2016 NICOTINE 14MG/24 HR [facility] 06/12/2016 - 06/12/2016 Provider: End: 03-06-2016 nicotine 14 mg/24 hr transde rmal patch 24 hour 03/06/2016 apply 1 patch (14 mg) by transdermal route once daily prn nystatin [id number] unt/ml topic al cream (20 sources) Polyene Antifungal Start: 08-15-2023 Start: 08-16-2022 End: 03-26-2023 Nystatin 100,000 unit/gram C ream Discontinued 1 APPLIC TOPICAL Twice daily March 26, 2023 12:00am March 26, 2023 2:02am Start: 08-16-2022 nystatin (MYCO STATIN) [id number] UNIT/GM cream Indications: Cutaneous candidiasis Apply topically [...] 2 tablets (100 mg) by oral route [facility] End: 03-05-2017 take 1 tablet by [...] 05-02-2020 BROMFED DM 2-30-10 MG/5 ML M [facility] 07/30/2017 - 05/02/2020 Provider: Start: 07-30-2017 End: 07-30-2017 BROMFED DM 2-30-10 MG/5 ML [facility] 07/30/2017 - 07/30/2017 Provider: Start: 07-30-2017 End: 07-30-2017 BROMFED DM 2-30-10MG/5 ML [facility] [place] 07/30/2017 - 07/30/2017 Provider: Start: 05-17-2017 End: 05-02-2020 BROMFED DM 2-30-10 MG/5 ML [facility] 05/17/2017 - 05/02/2020 Provider: Start: 05-17-2017 End: 05-17-2017 BROMFED DM 2-30-10 MG/5 ML [facility] 05/17/2017 - 05/17/2017 Provider: Start: 05-17-2017 End: 05-17-2017 BROMFED DM 2-30-10MG/5 ML [place] 05/17/2017 - 05/17/2017 Provider: Start: 05-22-2016 End: 07-23-2019 BROMFED DM 2-30-10 MG/5 ML [facility] 05/22/2016 - 07/23/2019 Provider: Start: 05-22-2016 End: 05-22-2016 BROMFED DM 2-30-10 MG/5 ML [facility] 05/22/2016 - 05/22/2016 Provider: Start: 05-22-2016 End: 05-22-2016 BROMFED DM 2-30-10MG/5 ML [place] 05/22/2016 - 05/22/2016 Provider: Start: 12-09-2015 End: 07-23-2019 BROMFED DM 2-30-10 MG/5 ML [facility] 12/09/2015 - 07/23/2019 Provider: Start: 12-09-2015 End: 12-09-2015 BROMFED DM 2-30-10 MG/5 ML [facility] 12/09/2015 - 12/09/2015 Provider: Start: 12-09-2015 End: 12-09-2015 BROMFED DM 2-30-10MG/5 ML [place] 12/09/2015 - 12/09/2015 Provider: Symbicort 160-4.5 [...] Calcium Start: 11-26-2018 End: 03-16-2020 Calcium 600+D3 [id number] Oral Tablet 11/26/2018 - 03/16/2020 Provider: Karla Clark CNP Start: 11-26-2018 End: 11-21-2019 Calcium 600+D3 [id number] Oral Tablet 11/26/2018 - 11/21/2019 Provider: Karla Clark CNP Start: 07-31-2018 Calcium 600+D3 [id number] Oral Tablet 07/31/2018 Provider: Start: 08-24-2012 take 2 tablets by [facility] once daily Calcium 600 D [...] + D(3) 600 mg(1, 500mg) -400 UNIT [facility] 11/09/2016 - 11/09/2016 Provider: CALCIUM 600 + D(3) 600 mg(1,500mg) -400 UNIT [facility] (20 sources) Start: 06-28-2018 End: 05-02-2020 CALCIUM 600 + D(3) 600 mg(1,500mg) -400 UNIT [facility] 06/28/2018 - 05/02/2020 Provider: Start: 11-20-2017 End: 05-02-2020 CALCIUM 600 + D(3) 600 mg(1, 500mg) -400 UNIT [facility] 11/20/2017 - 05/02/2020 Provider: Start: 11-09-2016 End: 05-02-2020 CALCIUM 600 + D(3) 600 mg(1, 500mg) -400 UNIT [facility] 11/09/2016 - 05/02/2020 Provider: CALCIUM 600 + D(3) 600 mg(1,500mg)-400 UNIT [facility] (3 sources) Start: 06-28-2018 End: 06-28-2018 CALCIUM 600 + D(3) 600 mg(1,500mg)-400 UNIT [facility] 06/28/2018 - 06/28/2018 Provider: Start: 11-20-2017 End: 11-20-2017 CALCIUM 600 + D(3) 600 mg(1, 500mg)-400 UNIT [facility] 11/20/2017 - 11/20/2017 Provider: Start: 11-09-2016 End: 11-09-2016 CALCIUM 600 + D(3) 600 mg(1, 500mg)-400 UNIT [facility] 11/09/2016 - 11/09/2016 Provider: CALCIUM 600 + D(3) 600 mg(1,500mg)-400 UNIT [facility] (6 sources) Start: 06-28-2018 End: 06-28-2018 CALCIUM 600 + D(3) 600 mg(1,500mg)-400 UNIT [facility] 06/28/2018 - 06/28/2018 Provider: Start: 11-20-2017 End: 11-20-2017 CALCIUM 600 + D(3) 600 mg(1, 500mg)-400 UNIT [facility] 11/20/2017 - 11/20/2017 Provider: Start: 11-09-2016 End: [...] End: 04-10-2016 CORDICIDIN COUGH AND COLD [place] 04/10/2016 - 04/10/2016 Provider: doxycycline hyclate 100 [...] Or al Capsule 07/31/2018 Provider: lactobacillus acidophilus [id number] unt / pectin 10 mg oral capsule (19 sources) Start: 03-26-2023 End: 03-26-2023 take 1 capsule by mouth once daily Acidophilus-Pectin, [place] (Acidophilus Probiotic) 100 million cell-10 mg Capsule Discontinued 1 CAP PO Daily March 26, 2023 12:00am March 26, 2023 1:21am Start: 02-21-2017 take 1 capsule by [facility] twice daily Acidophilus Probiotic 100 million [...] 10/02 - 07/23/2019 Provider: polyethylene glycol 3350 55219 mg powder for oral solution (20 sources) [...] Start: 08-24-2012 take 3 tablets by mo [facility] once daily predniSONE 20 mg [...] Start: 09-22-2015 End: 07-23-2019 PROPRANOLOL 80 MG [facility] 09/21 - 07/23/2019 Provider: Start: 09-22-2015 End: 09-22-2015 PROPRANOLOL 80 MG [facility] 09/21 - 09/22/2015 Provider: Start: 09-22-2015 End: 09-22-2015 PROPRANOLOL 80MG [facility] 2015 - 09/22/2015 Provider: End: 07-30-2017 take [...] - 06/28/2018 Provider: AMELIA PRESSAIR 400MCG/ACTU AT [facility] (4 sources) Start: 06-28-2018 End: 06-28-2018 TUDORZA [...] 05-04-2014 Episodic Other aftercare (1 source) Other despatching and receiving clerk (current) drug therapy; Translations: [OTH CLIMBING GUIDE CURRENT DRUG THERAPY] Onset: 3 Episodic Other aftercare (2 sources) On lithium; Translations: [Other despatching and receiving clerk (current) drug therapy] 02-18-2024 Episodic Other connective [...] Aortic Sinus Valsalva 2.9 cm [facility] Aortic Sinus Valsalva Index 1.72 cm/m2 [facility] Ascending Aorta 2.7 cm [facility] Ascending Aorta Index 1.6 cm/m2 [facility] AV Cusp Mmode 1.4 cm [facility] AV Mean Gradient 2 mmHg [facility] AV Mean Velocity 0.6 m/s [facility] AV Peak Gradient 3 mmHg [facility] AV Peak Velocity 0.9 m/s [facility] AV Velocity Ratio 1 [facility] AV VTI 19.1 cm [facility] Body surface area Derived from formula 1.72 m2 [facility] E/E' Lateral 4.84 [facility] EF BP 64 % 55 - 100 % [facility] EF Physician 65 % [facility] Est. RA Pressure 3 mmHg [facility] Fractional Shortening 2D 16 % 28 - 44 % [facility] Interpretation and review of laboratory results Abnormal [facility] IVSd 1.7 cm Abnormal 0.6 - 0.9 cm [facility] LA Area 2C 11.2 cm2 [facility] LA Area 4C 13 cm2 [facility] LA Major [place] 4.5 cm [facility] LA Minor [place] 4.6 cm [facility] LA Volume BP 26 mL 22 - 52 mL [facility] LA Volume Index BP 15 ml/m2 Abnormal 16 - 34 ml/m2 [facility] LA Volume Index MOD A2C 13 ml/m2 Abnormal 16 - 34 ml/m2 [facility] [place] Volume Index MOD A4C 18 ml/m2 16 - 34 ml/m2 [facility] LA Volume MOD A2C 22 mL 22 - 52 mL [facility] LA Volume MOD A4C 31 mL 22 - 52 mL [facility] LV E' Lateral Velocity 6.2 cm/s [facility] LV EDV A2C 42 mL [facility] LV EDV A4C 49 mL [facility] LV EDV Index A2C 25 mL/m2 [facility] LV EDV Index A4C 29 mL/m2 [facility] LV Ejection Fraction A2C 58 % [facility] LV Ejection Fraction A4C 69 % [facility] LV ESV A2C 18 mL [facility] LV ESV A4C 15 mL [facility] LV ESV Index A2C 11 mL/m2 [facility] LV ESV Index A4C 9 mL/m2 [facility] LV Mass 2D 171.6 g Abnormal 67 - 162 g [facility] LV Mass 2D Index 101.6 g/m2 Abnormal 43 - 95 g/m2 [facility] LV RWT Ratio 0.81 [facility] LVIDd 3.2 cm Abnormal 3.9 - 5.3 cm [facility] LVIDd Index 1.89 cm/m2 [facility] LVIDs 2.7 cm [facility] LVIDs Index 1.6 cm/m2 [facility] LVOT Mean Gradient 1 mmHg [facility] LVOT Peak Gradient 3 mmHg [facility] LVOT Peak Velocity 0.9 m/s [facility] LVOT VTI 16.1 cm [facility]it LVOT:AV VTI Index 0.84 [facility] Pigit LVPWd 1.3 cm Abnormal 0.6 - 0.9 cm [facility] MV A Velocity 0.78 m/s [facility] MV E Velocity 0.3 m/s [facility] MV E Wave Deceleration Time 250 ms [facility] MV E/A 0.38 [facility] PV Max Velocity 0.7 m/s [facility] PV Peak Gradient 2 mmHg [facility] RVSP 14 mmHg [facility] Pigit Sinotubular [place] 2.5 cm Bon [facility] TAPSE 2.2 cm 1.7 cm [facility] TR Max Velocity 1.67 m/s [facility] TR Peak Gradient 11 mmHg [facility] Left Ventricle: Norm al left ventricular [...] Image quality: adequate. No contrast was given. [facility] CV CPACS [facility] Radiology Study observation (narrative) [facility] APTTon 04-23-2024 aPTT Coag (Bld) [Time] 24.6 s [facility] Comment on above: IV Heparin Therapy Range: 66.0-92.0 sec aPTT Coag (Bld) [Time] 24.6 s Normal 23.0-36.[address] [facility] Comment on above: Result Comment: IV Heparin Therapy Range: 66.0-92.0 sec Performed By: #### P T, CDP, TROPI, PTT, CP #### [facility] [employer] [address] [place], [place] [id number] Cell Builder: Tej Locke MD BUN, POCon 04-23-2024 Urea nitrogen [Mass/Vol] 25 mg/dL Normal 8- [facility] CALCIUM, IONIC (POC)on 04-23 Calcium.ionized (Bld) [Moles/Vol] 1.28 mmol/L 1.15 - 1.33 mmol/L [facility] CBC with Auto Differentialon 04-23-2024 Basophils (Bld) [#/Vol] 0.04 10*3/uL [facility] Basophils/100 WBC (Bld) 1 % 0 - 2 % B on [facility] Eosinophils (Bld) [#/Vol] 0.20 10*3/uL [facility] Eosinophils/100 WBC (Bld) 4 % 1 - 4 % [facility] Erythrocyte distribution width (RBC) [Ratio] 12.9 % 11.8 - 14.4 % [facility] Hematocrit (Bld) [Volume fraction] 38.4 % 36.3 - 47.1 % [facility] Hemoglobin (Bld) [Mass/Vol] 12.0 g/dL 11.9 - 15.1 g/dL [facility] Immature granulocytes (Bld) [#/Vol] [facility] Immature granulocytes/100 WBC (Bld) 0 % 0 [facility] Interpretation and review of laboratory results Abnormal [facility] Lymphocytes/100 WBC (Bld) 30 % 24 - 43 % [facility] Lymphocytes/100 WBC (Bld) 1.53 % [facility] MCH (RBC) [Entitic mass] 32.3 pg 25.2 - 33.5 pg [facility] MCHC (RBC) [Mass/Vol] 31.3 g/dL 28.4 - 34.8 g/dL [facility] MCV (RBC) [Entitic vol] 103.5 fL High 82.6 - 102.9 fL [facility] Monocytes/100 WBC (Bld) 10 % 3 - 12 % B on [facility] Monocytes/100 WBC (Bld) 0.51 % B on [facility] Neutrophils/100 WBC (Bld) 55 % 36 - 65 % [facility] Nucleated RBC/100 WBC (Bld) [Ratio] 0.0 % 0.0 per 100 WBC [facility] Platelet mean volume (Bld) [Entitic vol] 10.4 fL 8.1 - 13.5 fL [facility] Platelets (Bld) [#/Vol] 223 10*3/uL [facility] RBC (Bld) [#/Vol] 3.71 10*6/uL Low 3.95 - 5.11 m/uL [facility] RBC (Bld) [#/Vol] MACROCYTOSIS PRESENT [facility] Segmented neutrophils/100 WBC (Bld) 2.83 % [facility] WBC other (Bld) [#/Vol] 5.1 B on [facility] Bon [facility] CBC with Diffon 04-23-2024 Abs. Basophil 0.04 k/uL Normal 0.00-0.20 [facility] Comment on above: Performed By: #### P T, CDP, TROPI, PTT, CP #### [address] [address] Cell Builder: Tej Locke MD Abs.Imm.Granulocyte <0.03 Normal 0.00-0.30 [facility] Comment on above: Performed By: #### P T, CDP, TROPI, PTT, CP #### [place] [address] Cell Builder: Tej Locke MD Abs.Neutrophil (Seg) 2.83 k/uL Normal 1.50-8.10 [facility] Comment on above: Performed By: #### P T, CDP, TROPI, PTT, CP #### [place] [address] Cell Builder: Tej Locke MD Basophils/100 WBC (Bld) 1 % Normal 0-2 [facility] Comment on above: Performed By: #### P T, CDP, TROPI, PTT, CP #### [place] [address] Cell Builder: Tej Locke MD Eosinophils (Bld) [#/Vol] 0.20 10*3/uL Normal 0.00-0.44 [facility] Comment on above: Performed By: #### P T, CDP, TROPI, PTT, CP #### [address] [address] Cell Builder: Tej Locke MD Eosinophils/100 WBC (Bld) 4 % Normal 1-4 [facility] Comment on above: Performed By: #### P T, CDP, TROPI, PTT, CP #### [address] [address] Cell Builder: Tej Locke MD Erythrocyte distribution width (RBC) [Ratio] 12.9 % Normal 11.8-14.4 [facility] Comment on above: Performed By: #### P T, CDP, TROPI, PTT, CP #### [address] [address] Cell Builder: Tej Locke MD Hematocrit (Bld) [Volume fraction] 38.4 % Normal 36.3-47.1 [facility] Comment on above: Performed By: #### P T, CDP, TROPI, PTT, CP #### [address] [address] Cell Builder: Tej Locke MD Hemoglobin (Bld) [Mass/Vol] 12.0 g/dL Normal 11.9-15.1 [facility] Comment on above: Performed By: #### P T, CDP, TROPI, PTT, CP #### [address] [address] Cell Builder: Tej Locke MD Immature granulocytes/100 WBC (Bld) 0 % Normal 0 [facility] Comment on above: Performed By: #### P T, CDP, TROPI, PTT, CP #### [place] [address] Cell Builder: Tej Locke MD Lymphocytes (Bld) [#/Vol] 1.53 10*3/uL Normal 1.10-3.70 [facility] Comment on above: Performed By: #### P T, CDP, TROPI, PTT, CP #### [address] [address] Cell Builder: Tej Locke MD Lymphocytes/100 WBC (Bld) 30 % Normal 24-43 [facility] Comment on above: Performed By: #### P T, CDP, TROPI, PTT, CP #### [address] [address] Cell Builder: Tej Locke MD MCH (RBC) [Entitic mass] 32.3 pg Normal 25.2-33.5 [facility] Comment on above: Performed By: #### P T, CDP, TROPI, PTT, CP #### [address] [address] Cell Builder: Tej Locke MD MCHC (RBC) [Mass/Vol] 31.3 g/dL Normal 28.4-34.8 [facility] Comment on above: Performed By: #### P T, CDP, TROPI, PTT, CP #### [place] [address] Cell Builder: Tej Locke MD MCV (RBC) [Entitic vol] 103.5 fL High 82.6-102.9 M [facility] Comment on above: Performed By: #### P T, CDP, TROPI, PTT, CP #### [address] [address] Cell Builder: Tej Locke MD Monocytes (Bld) [#/Vol] 0.51 10*3/uL Normal 0.10-1.20 [facility] Comment on above: Performed By: #### P T, CDP, TROPI, PTT, CP #### [address] [address] Cell Builder: Tej Locke MD Monocytes/100 WBC (Bld) 10 % Normal 3-12 [facility] Comment on above: Performed By: #### P T, CDP, TROPI, PTT, CP #### [address] [address] Cell Builder: Tej Locke MD Neutrophil (Seg) 55 % Normal 36-65 [facility] Comment on above: Performed By: #### P T, CDP, TROPI, PTT, CP #### [address] [address] Cell Builder: Tej Locke MD NRBC Automated 0.0 per 100 WBC Normal 0.0 [facility] Comment on above: Performed By: #### P T, CDP, TROPI, PTT, CP #### [address] [address] Cell Builder: Tej Locke MD Platelet mean volume (Bld) [Entitic vol] 10.4 fL Normal 8.1-13.5 [facility] Comment on above: Performed By: #### P T, CDP, TROPI, PTT, CP #### [address] [address] Cell Builder: Tej Locke MD Platelets (Bld) [#/Vol] 223 10*3/uL Normal 138-453 [facility] Comment on above: Performed By: #### P T, CDP, TROPI, PTT, CP #### [address] [address] Cell Builder: Tej Locke MD RBC (Bld) [#/Vol] 3.71 10*6/uL Low 3.95-5.11 [facility] Comment on above: Performed By: #### P T, CDP, TROPI, PTT, CP #### [address] [address] Cell Builder: Tej Locke MD RBC morphology finding Nom (Bld) MACROCYTOSIS PRESENT Normal [facility] Comment on above: Performed By: #### P T, CDP, TROPI, PTT, CP #### [address] [address] Cell Builder: Tej Locke MD WBC (Bld) [#/Vol] 5.1 10*3/uL Normal 3.5-11.3 [facility] Comment on above: Performed By: #### P T, CDP, TROPI, PTT, CP #### [employer] [address] [place] [address] Cell Builder: Tej Locke MD CT HEAD WO CONTRASTon [...] for review. This scan was analyzed using [email or web address] contact LVO. Identification of suspected findings is [...] Yandel Walters DO 04/23/24 Final result Normal [facility] CT Head WO contraston 2023 Radiology Study [...] for review. This scan was analyzed using [email or web address] contact LVO. Identification of suspected findings is [...] Yandel Walters DO 04/23/24 Final result Normal [facility] CTA Head vessels and Neck ve ssels W contrast Hayden 04-23-2024 Radiology Study observation (narrative) Charly sanchez [facility] Calcium, Ionic (POC)on 04-23 Calcium [Moles/Vol] 1.28 mmol/L Normal 1.15-1.33 [facility] Comp Metabolic Profon 2023 Albumin [Mass/Vol] 4.2 g/dL Normal 3.5-5.2 [facility] Comment on above: Performed By: #### P T, CDP, TROPI, PTT, CP #### [address] [address] Cell Builder: Tej Locke MD Albumin/Glob Ratio 1.9 Normal 1.0-2.5 [facility] Comment on above: Performed By: #### P T, CDP, TROPI, PTT, CP #### [facility] [employer] [address] [place] [address] Cell Builder: Tej Locke MD Alkaline Phos 116 U/L High 35-104 [facility] Comment on above: Performed By: #### P T, CDP, TROPI, PTT, CP #### [facility] [employer] [address] [place] [address] Cell Builder: Tej Locke MD ALT [Catalytic activity/Vol] 19 U/L Normal 10-35 [facility] Comment on above: Performed By: #### P T, CDP, TROPI, PTT, CP #### [employer] [address] [place] [address] Cell Builder: Tej Locke MD Anion gap [Moles/Vol] 9 mmol/L Normal 9-16 [facility] Comment on above: Performed By: #### P T, CDP, TROPI, PTT, CP #### [facility] [employer] [address] [place] [address] Cell Builder: Tej Locke MD AST [Catalytic activity/Vol] 17 U/L Normal 10-35 [facility] Comment on above: Performed By: #### P T, CDP, TROPI, PTT, CP #### [address] [address] Cell Builder: Tej Locke MD Bilirubin [Mass/Vol] mg/dL Normal 0.0-1.2 [facility] Comment on above: Performed By: #### P T, CDP, TROPI, PTT, CP #### [address] [address] Cell Builder: Tej Locke MD Calcium [Mass/Vol] 9.6 mg/dL Normal 8.6-10.4 [facility] Comment on above: Performed By: #### P T, CDP, TROPI, PTT, CP #### [address] [address] Cell Builder: Tej Locke MD Chloride [Moles/Vol] 109 mmol/L High 98-107 [facility] Comment on above: Performed By: #### P T, CDP, TROPI, PTT, CP #### [address] [address] Cell Builder: Tej Locke MD CO2 [Moles/Vol] 22 mmol/L Normal 20-31 [facility] Comment on above: Performed By: #### P T, CDP, TROPI, PTT, CP #### [facility] [employer] [address] [place] [address] Cell Builder: Tej Locke MD Creatinine [Mass/Vol] 1.5 mg/dL High 0.6-0.9 [facility] Comment on above: Performed By: #### P T, CDP, TROPI, PTT, CP #### [address] [address] Cell Builder: Tej Locke MD GFR/1.73 sq M.predicted among non-blacks MDRD (S/P/Bld) [Vol rate/Area] 38 mL/min/{1.73_m2} Low >60 [facility] Comment on above: Result Comment: These results [...] P T, CDP, TROPI, PTT, CP #### [facility] [address] [place] [address] Cell Builder: Tej Locke MD Glucose [Mass/Vol] 106 mg/dL High 74-99 [facility] Comment on above: Performed By: #### P T, CDP, TROPI, PTT, CP #### [employer] [address] [place] [address] Cell Builder: Tej Locke MD Potassium [Moles/Vol] 4.6 mmol/L Normal 3.7-5.3 [facility] Comment on above: Performed By: #### P T, CDP, TROPI, PTT, CP #### [employer] [address] [place] [address] Cell Builder: Tje Locke MD Protein [Mass/Vol] 6.4 g/dL Low 6.6-8.7 [facility] Comment on above: Performed By: #### P T, CDP, TROPI, PTT, CP #### [employer] [address] [place] [address] Cell Builder: Tej Locke MD Sodium [Moles/Vol] 140 mmol/L Normal 136-145 [facility] Comment on above: Performed By: #### P T, CDP, TROPI, PTT, CP #### [employer] [address] [place] [address] Cell Builder: Tej Locke MD Urea nitrogen [Mass/Vol] 25 mg/dL High 8-23 [facility] Comment on above: Performed By: #### P T, CDP, TROPI, PTT, CP #### [facility] [address] [place], [place] [phone] Cell Builder: Tej Locke MD Comprehensive Metabolic [facility] 04-23-2024 Albumin [Mass/Vol] 4.2 g/dL 3.5 - 5.2 g/dL [facility] Albumin/Globulin [Mass ratio] 1.9 {ratio} 1.0 - 2.5 [facility] ALP [Catalytic activity/Vol] 116 U/L High 35 - 104 U/L [facility] ALT [Catalytic activity/Vol] 19 U/L 10 - 35 U/L [facility] Anion gap [Moles/Vol] 9 mmol/L 9 - 16 mmol/L [facility] AST [Catalytic activity/Vol] 17 U/L 10 - 35 U/L [facility] Bilirubin [Mass/Vol] mg/dL 0.0 - 1 .2 mg/dL [facility] Calcium [Mass/Vol] 9.6 mg/dL 8.6 - 10. 4 mg/dL [facility] Chloride [Moles/Vol] 109 mmol/L High 98 - 10 7 mmol/L [facility] CO2 [Moles/Vol] 22 mmol/L 20 - 31 mmol/L [facility] Creatinine [Mass/Vol] 1.5 mg/dL High 0.6 - 0.9 mg/dL [facility] Est, Glom Filt Rate 38 Low - PINF [facility] Comment on above: These results [...] 106 mg/dL High 74 - 99 mg/dL [facility] Potassium [Moles/Vol] 4.6 mmol/L 3.7 - 5.3 mmol/L [facility] [employer] Protein [Mass/Vol] 6.4 g/dL Low 6.6 - 8.7 g/dL [facility] Sodium [Moles/Vol] 140 mmol/L 136 - 145 mmol/L [facility] [employer] Urea nitrogen [Mass/Vol] 25 mg/dL High 8 - 23 mg/dL [facility] [employer] Creatinine W/GFR Point of Ca reon 04-23-2024 Creatinine [Mass/Vol] 1.3 mg/dL High 0.51 - 1.19 mg/dL [facility] [employer] eGFR, POC 45 Low - PINF [facility] Comment on above: These results [...] 11- Creatinine [Mass/Vol] 1.3 mg/dL High 0.51-1.19 [facility] GFR/1.73 sq M.predicted among non-blacks MDRD (S/P/Bld) [Vol rate/Area] 45 mL/min/{1.73_m2} Low >60 [facility] Comment on above: Result Comment: These results [...] [Moles/Vol] 14 mmol/L 7 - 16 mmol/L [facility] Chloride [Moles/Vol] 109 mmol/L High 98 - 10 7 mmol/L [facility] CO2 Calc (Bld) [Moles/Vol] 23 mmol/L 22 - 30 mmol/L [facility] Potassium [Moles/Vol] 4.6 mmol/L High 3.5 - 4.5 mmol/L [facility] Sodium [Moles/Vol] 145 mmol/L 138 - 146 mmol/L [facility] Electrolyteson 04-23-2024 Anion gap [Moles/Vol] 14 mmol/L Normal 7-16 [facility] Chloride [Moles/Vol] 109 mmol/L High 98-107 [facility] CO2 [Moles/Vol] 23 mmol/L Normal 22-30 [facility] Potassium [Moles/Vol] 4.6 mmol/L High 3.5-4.5 [facility] Sodium [Moles/Vol] 145 mmol/L Normal 138-146 [facility] Glucose (POC)on 04-23-2024 Glucose [Mass/Vol] 98 mg/dL Normal 74-100 [facility] Hemoglobin and hematocrit, b loodon 04-23-2024 Hematocrit (Bld) [Volume fraction] 37 % 36 - 46 % [facility] Hemoglobin (Bld) [Mass/Vol] 12.4 g/dL 12.0 - 16.0 g/dL [facility] Hgb/Hct, POCon 04-23-2024 Hematocrit (Bld) [Volume fraction] 37 % Normal 36-46 [facility] Hemoglobin (Bld) [Mass/Vol] 12.4 g/dL Normal 12.0-16.0 [facility] Lactic Acid (POC)on 04-23-20 24 Lactate [Moles/Vol] 1.0 mmol/L Normal 0.56-1.39 [facility] Lactic Acid, POCon 4 POC Lactic Acid 1.0 mmol/L 0.56 - 1.39 mmol/L [facility] MR Brain WO contraston 04-23 No acute [...] The soft tissues demonstrate no acute abnormality. [facility] Yin Calderón MD - 04/23/2024 EXAMINATION: [...] acute abnormality. IMPRESSION: No acute intracranial abnormality. [facility] Radiology Study observation (narrative) Charly sanchez [facility] MR Brain WO contrastOrdered By: Yin Calderón on 04-23-2024 [facility] Work Phone: MRI BRAIN WO CONTRASTon 04-04 [...] Yin Calderón MD 04/23/24 Final result Normal [facility] Microscopic Urinalysison Bacteria LM Ql (Urine sed) None None [facility] Casts LM.LPF (Urine sed) [#/Area] None Reference range defined for non-centrifuged specimen. [facility] Epithelial cells LM.HPF (Urine sed) [#/Area] 0 TO 2 [facility] RBC LM.HPF (Urine sed) [#/Area] None [facility] Comment on above: Reference range defi aggie for non-centrifuged specimen. WBC LM.HPF (Urine sed) [#/Area] [address] TO [address] [facility] No Panel Informationon 04-23 1. No acute [...] received by Dr. Pillai at 2:22 pm. [facility] CONSOLIDATED EXAMINATION: CTA OF [...] venous sinus thrombosis on this non-dedicated study. [facility] CONSOL[facility] Yandel Walters DO [...] received by Dr. Pillai at 2:22 pm. [employer] Interpretation and review of laboratory results Abnormal [facility] [employer] [facility] Interpretation and review of laboratory results Abnormal [facility] No Panel InformationOrdered By: Yandel Walters on 04-23-2024 [employer] Work Phone: POCT Glucoseon 04-23-2024 Glucose [Mass/Vol] 98 mg/dL 74 - 100 mg/dL [facility] POCT urea (BUN)on 04-23-2024 Urea nitrogen [Mass/Vol] 25 mg/dL 8 - 26 mg/dL [facility] PTon 04-23-2024 INR Coag (PPP) [Relative time] 1.0 {INR} Normal [facility] Comment on above: Result Comment: Therapeutic Range: Moderate Anticoagulant Intensity: INR = 2.0-3.0 High Anticoagulant Intensity: INR = 2.5-3.5 Performed By: #### P T, CDP, TROPI, PTT, CP #### [facility] [employer] [address] [place] [phone] Cell Builder: Tje Lcoke MD PT Coag (PPP) [Time] 13.5 s Normal 11.7-14.9 [facility] Comment on above: Performed By: #### P T, CDP, TROPI, PTT, CP #### [facility] [employer] [address] [place] [phone] Cell Builder: Tej Locke MD Portable XR Chest AP single viewon 04-23-2024 No acute process. [facility] CONSOLIDATED EXAMINATION: ONE XRAY VIEW OF THE CHEST 04/23/2024 2:02 pm COMPARISON: 05/19/2016 HISTORY: ORDERING SYSTEM PROVIDED HISTORY: Concern for pneumonia TECHNOLOGIST PROVIDED HISTORY: Concern for pneumonia FINDINGS: The lungs are without acute focal process. There is no effusion or pneumothorax. The cardiomediastinal silhouette is stable. The osseous structures are stable. [facility] CONSOLIDATED Khalif St MD - [...] [facility] Radiology Study observation (narrative) [facility] Portable XR Chest AP single viewOrdered By: Khalif St on 04-23-2024 [facility] Work Phone: Protime-INRon 04-23-2024 INR Coag (PPP) [Relative time] 1.0 {INR} [facility] Comment on above: Therapeutic Range: Moderate Anticoagulant Intensity: INR = 2.0-3.0 High Anticoagulant Intensity: INR = 2.5-3.5 PT Coag (PPP) [Time] 13.5 s [facility] Troponinon 04-23-2024 Interpretation and review of laboratory results Abnormal [facility] Troponin I.cardiac High sensitivity method [Mass/Vol] 20 ng/L High 0 - 14 ng/L [facility] Comment on above: High Sensitivity Tro ponin values cannot be compared with other Troponin methodologies. [facility] Troponin, High Sens 20 ng/L High 0-14 [facility] Comment on above: Result Comment: High Sensitivity Troponin values cannot be compared with other Troponin methodologies. Performed By: #### T ROPI #### [facility] [employer] [address] [place] [address] Cell Builder: Tej Locke MD Troponin I.cardiac High sensitivity method [Mass/Vol] 22 ng/L High 0 - 14 ng/L [facility] Comment on above: High Sensitivity Tro ponin values cannot be compared with other Troponin methodologies. Troponin, High Sens 22 ng/L High 0-14 [facility] Comment on above: Result Comment: High Sensitivity Troponin values cannot be compared with other Troponin methodologies. Performed By: #### P T, CDP, TROPI, PTT, CP #### [facility] [employer] [address] [place] [address] [phone] Cell Builder: Tej Locke MD UA w/Reflex Cultureon 2023 Bilirubin, SemiQt,Ur Negative Normal NEG [facility] Comment on above: Performed By: #### U AX, UMICAO ####[facility] [address] [place] [address] [phone] Lab Director: Tej Locke MD Blood, Urine Negative Normal NEG [facility] Comment on above: Performed By: #### U AX, UMICAO ####[facility] [address] [place], [place] [phone] Director: Tej Locke MD Clarity (U) Clear Normal CLEAR [facility] Comment on above: Performed By: #### U AX, UMICAO ####[facility] [address] [place], [place] [phone] Director: Tej Locke MD Color (U) Yellow Normal YEL [facility] Comment on above: Performed By: #### U AX, UMICAO ####[facility] [address] [place], [place] [phone] Director: Tej Locke MD Glucose Ql (U) Negative Normal NEG [facility] Comment on above: Performed By: #### U AX, UMICAO ####[facility] [address] [place], [place] [phone] Director: Tej Locke MD Ketones Ql (U) Negative Normal NEG [facility] Comment on above: Performed By: #### U AX, UMICAO ####[facility] [address] [place] [address] Lab Director: Tej Locke MD Leukocyte esterase Test strip Ql (U) TRACE Abnormal NEG [facility] Comment on above: Performed By: #### U AX, UMICAO ####[facility] [address] [place] [address] Lab Director: Tej Locke MD Nitrite,Ur Negative Normal NEG [facility] Comment on above: Performed By: #### U AX, UMICAO ####[facility] [address] [place] [address] Lab Director: Tej Locke MD PH,Ur 7.0 Normal 5.0-8.0 [facility] Comment on above: Performed By: #### U AX, UMICAO ####[facility] [address] [place] [address] Lab Director: Tej Locke MD Protein Ql (U) Negative Normal NEG [facility] Comment on above: Performed By: #### U AX, UMICAO ####[facility] [address] [place] [address] lab Director: Tej Locke MD Spec. [place],Ur 1.017 Normal 1.005-1.03 0 [facility] Comment on above: Performed By: #### U AX, UMICAO ####[facility] [address] [place] [address] lab Director: Tej Locke MD Urobilinogen,Ur Normal Normal 0.0-1.0 [facility] Comment on above: Performed By: #### U AX, UMICAO ####[facility] [address] [place] [address] Lab Director: Tej Locke MD Urinalysis with Reflex to Cu ltureon 04-23-2024 Bilirubin Ql (U) Negative NEGATIVE [facility] Clarity (U) Clear Clear [facility] Color (U) Yellow Yellow [facility] Glucose Test strip (U) [Mass/Vol] Negative NEGATIVE mg/dL [facility] Hemoglobin Auto test strip Ql (U) Negative NEGATIVE [facility] Interpretation and review of laboratory results Abnormal [facility] Ketones (U) [Mass/Vol] Negative NEGAT MATT mg/dL [facility] Leukocyte esterase Test strip Ql (U) TRACE Abnormal NEGATIVE [facility] Nitrite Ql (U) Negative NEGATIVE [facility] pH (U) 7.0 [pH] 5.0 - 8.0 [facility] Protein (U) [Mass/Vol] Negative NEGAT MATT mg/dL [facility] Specific gravity (U) [Rel density] 1.017 1.005 - 1.030 [facility] Urobilinogen Qn (U) Normal 0.0 - 1. 0 EU/dL [facility] Urinalysis,Microon 4 Bacteria None Normal NONE [facility] Comment on above: Performed By: #### U AX, UMICAO ####[facility] [address] [place] [address] Lab Director: Tej Locke MD Casts None Normal 0-8 [facility] Comment on above: Result Comment: Refe rence range defined for non-centrifuged specimen. Performed By: #### U AX, UMICAO ####[facility] [address] [place], [place] [phone] Director: Tej Locke MD Epithelial cells LM Ql (Urine sed) 0 TO 2 Normal 0-5 [facility] Comment on above: Performed By: #### U AX, UMICAO ####[facility] [address] [place] [address] Lab Director: Tej Locke MD Urine RBC's None Normal 0-4 [facility] Comment on above: Result Comment: Refe rence range defined for non-centrifuged specimen. Performed By: #### U AX, UMICAO ####[facility] [address] [place] [address] Lab Director: Tej Locke MD Urine WBC's 0 TO 2 Normal 0-5 [facility] Comment on above: Performed By: #### U AX, UMICAO ####[facility] [address] [place] [address] Lab Director: Tej Locke MD Venous Bld Gas,POCon 024 HCO3 (Bld) [Moles/Vol] 23.4 mmol/L Normal 22.0-29.0 [facility] Negative Base Excess (calc) 1.9 mmol/L Normal 0.0-2.0 [facility] Oxygen saturation in Blood 26.7 % Low 60.0-85.0 [facility] pCO2, Venous 41.3 mm Hg Normal 41.0-51.0 [facility] pH,Venous 7.362 Normal 7.320-7.43 0 [facility] pO2, Venous 18.7 mm Hg Low 30.0-50.0 [facility] Venous Blood Gas, POCon 11- HCO3 (Bld) [Moles/Vol] 23.4 mmol/L 22.0 - 29.0 mmol/L [facility] Negative Base Excess, Mark 1.9 mmol/L 0.0 - 2.0 mmol/L [facility] Oxygen saturation in Blood 26.7 % Low 60.0 - 85.0 % [facility] pCO2, Mark 41.3 [facility] pH, Mark 7.362 7.320 - 7.430 [facility] PO2, Mark 18.7 Low [facility] XR CHEST PORTABLEon 04-23-20 XR CHEST PORTABLE [...] Khalif St MD 04/23/24 Final result Normal [facility] EMG 2 Extremitieson 02-25-20 L5 b/l mild [facility] NVC 9-10 Nerveson 02-25-2024 L5 b/l mild [facility] [place] [Moles/volume] in Se rum or PlasmaOrdered By: Joe Davis on 12-18-2023 [place] [Moles/Vol] 1.00 mmol/L Normal 0.60-1.20 [facility] Comment on above: Result Comment: PERF ORMED BY: [place] [address] PATHOLOGIST CERTIFIED RETINAL ANGIOGRAPHER GATO PEÑA M.D. Performed By: #### L ITH #### [facility] [address] [id number] [place] Cholesterol [Mass/volume] in Serum or PlasmaOrdered By: Joe Davis on 12-17-2023 Cholesterol [Mass/Vol] 133 mg/dL Low 140-200 [facility] Comment on above: Chol less than 200 m g/dl low riskChol 201-239 mg/dl borderline riskChol 240 mg/dl and greater high risk Result Comment: Chol less than 200 mg/dl low risk Chol 201-239 mg/dl borderline risk Chol 240 mg/dl and greater high risk Performed By: #### E LONNIE, CBC, CMP #### [facility] [address] [id number] [facility] Cholesterol in LDL Calc [Mas s/Vol]Ordered By: Joe Davis on 12-17-2023 Cholesterol in LDL [Mass/Vol] 66 mg/dL 0-100 [facility] Comment on above: LDL ATP III CLASSIFI CATIONLDL less than 100 mg/dL OptimalLDL 100-129 mg/dL Near or above optimalLDL 130-159 mg/dL Borderline highLDL 160-189 mg/dL HighLDL greater than 189 mg/dL Very high Cholesterol in VLDL Calc [Ma ss/Vol]Ordered By: Joe Davis on 12-17-2023 Cholesterol in VLDL [Mass/Vol] 18 mg/dL [facility] ECG 12 lead ECGon 12-17-2023 ECG 12 lead ECG [facility] [address] [place] [address] [place] [address] Electrocardiograph Report Signed Patient: Gail Almeida MR#: [id number] : 1955 Acct:[id number] Age/Sex: 68 / F ADM Date: 12/16/23 Loc: Room: [address] [place] [address] Type: ADM IN Attending Dr: Joe Davis [...] Crawford MD 12/17/23 1649 Normal [facility] Lipid Panelon 12-17-2023 LDL Cholesterol,Calculated 66 mg/dL Normal 0-100 [facility] Comment on above: Result Comment: LDL ATP III CLASSIFICATION LDL less than 100 mg/dL Optimal LDL 100-129 mg/dL Near or above optimal LDL 130-159 mg/dL Borderline high LDL 160-189 mg/dL High LDL greater than 189 mg/dL Very high Performed By: #### E HEDY FLEMING, CMP #### [facility] [address] Triglyceride w/Reflex 94 mg/dL Normal 0-149 [facility] Comment on above: Result Comment: TRIG ATP III CLASSIFICATION TRIG less than 150 mg/dL Normal TRIG 150-199 mg/dL Borderline high TRIG 200-500 mg/dL High TRIG greater than 500 mg/dL Very high Standard traceable to the Center for Disease Conrtrol and Prevention (CDC) test method. Performed By: #### E LONNIE CBC, CMP #### [facility] [address] [id number] [facility] VLDL CHOLESTEROL 18 mg/dL Normal [facility] Comment on above: Performed By: #### E LONNIE CBC, CMP #### [facility] [address] [place] [address] Serum or plasma high density lipoprotein (HDL) cholesterol measurementOrdered By: Joe Davis on 12-17-2023 Cholesterol in HDL [Mass/Vol] 48 mg/dL Normal 23-92 [facility] Comment on above: HDL CHOL ATP-III CLA SSIFICATION Cardiovascular RiskHDL > or equal to 60 mg/dL LOWHDL < 40 mg/dL HIGH Result Comment: HDL CHOL ATP-III CLASSIFICATION Cardiovascular Risk HDL > or equal to 60 mg/dL LOW HDL < 40 mg/dL HIGH Performed By: #### E HEDY FLEMING, CMP #### [address] Serum or plasma total choles terol/high density lipoprotein (HDL) cholesterol mass ratOrdered By: Joe Davis on 12-17-2023 Cholesterol.total/Judy sterol in HDL [Mass ratio] 2.8 {ratio} Normal <5.0 [facility] Comment on above: Performed By: #### E HEDY FLEMING, CMP #### [address] Thyroid Stim Hormone w/Rflxo n 12-17-2023 Thyroid Stim Hormone w/Rflx 0.27 u[iU]/mL Low 0.45-5.33 [facility] Comment on above: Performed By: #### E HEDY FLEMING, CMP #### [address] Thyrotropin [Units/volume] i n Serum or PlasmaOrdered By: Joe Davis on 12-17-2023 TSH Qn 0.27 m[IU]/L Low 0.45-5.33 [facility] Thyroxine (T4) free [Mass/vo lume] in Serum or PlasmaOrdered By: Joe Davis on 12-17-2023 Free T4 [Mass/Vol] 0.79 ng/dL Normal 0.61-1.12 [facility] Comment on above: Performed By: #### E HEDY FLEMING, CMP #### [address] [address] [facility] Triglyceride [Mass/volume] i n Serum or PlasmaOrdered By: Joe Davis on 12-17-2023 Triglyceride [Mass/Vol] 94 mg/dL 0-[address] [facility] Comment on above: TRIG ATP III CLASSIF ICATIONTRIG less than 150 mg/dL NormalTRIG 150-199 mg/dL Borderline highTRIG 200-500 mg/dL High TRIG greater than 500 mg/dL Very highStandard traceable to the Center for Disease Conrtrol and Prevention (CDC) test method. Vitamin D 25 Hydroxy Totalon 12-17-2023 Vitamin D 25 Hydroxy Total 26.0 ng/mL Low 30-100 [facility] Comment on above: Result Comment: EDUARDO MIN D STATUS 25(OH)VITAMIN D RANGE (ng/mL) Deficient <20 Insufficient 20 to <30 Sufficient 30 to 100 Reference: Renée Woodward, Francisco CARPIO, et al. Evaluation,treatment, and prevention of vitamin D deficiency; an Endocrine Society clinical practice guideline. JCEM. 2010; 96(7):1911-30. PERFORMED BY: [place] [address] PATHOLOGIST CERTIFIED RETINAL ANGIOGRAPHER GATO PEÑA M.D. Performed By: #### E LONNIE, CBC, CMP #### [address] Vitamin D+Metabolites [Mass/ volume] in Serum or PlasmaOrdered By: Joe Davis on 12-17-2023 Vitamin D+Metabolites [Mass/Vol] 26.0 ng/mL Low 30-100 [facility] Comment on above: VITAMIN D STATUS [...] ALT [Catalytic activity/Vol] 14 U/L Normal 7-52 [facility] Comment on above: Performed By: #### E LONNIE, CBC, CMP #### [facility] [address] [place] [address] Albumin [Mass/volume] in Ser um or Plasma by Bromocresol green (BCG) dye binding methoOrdered By: Juve Spears on 12-16-2023 Albumin BCG dye [Mass/Vol] 4.1 g/dL 3.5-5.7 [facility] Alkaline phosphatase [Enzyma tic activity/volume] in Serum or PlasmaOrdered By: Juve Spears on 12-16-2023 ALP [Catalytic activity/Vol] 101 U/L Normal 34-104 [facility] Comment on above: Performed By: #### E LONNIE, CBC, CMP #### [address] Amphetamine Screen Ql (U)Ord ered By: Juve Spears on 12-16-2023 Amphetamines Ql (U) Negative Negative [facility] Aspartate aminotransferase [ Enzymatic activity/volume] in Serum or PlasmaOrdered By: Juve Spears on 12-16-2023 AST [Catalytic activity/Vol] 16 U/L Normal 13-39 [facility] Comment on above: Performed By: #### E LONNIE, CBC, CMP #### [facility] [address] [place] [address] Automated basophil %Ordered By: Juve Spears on 12-16-2023 Basophils/100 WBC (Bld) 0.9 % Normal . [facility] Comment on above: Performed By: #### E LONNIE, CBC, CMP #### [facility] [address] [place] [address] Automated basophil countOrde red By: Juve Spears on 12-16-2023 Basophils (Bld) [#/Vol] 0.1 10*3/uL Normal 0.0-0.2 [facility] Comment on above: Result Comment: PERF ORMED BY: [place] [address] PATHOLOGIST CERTIFIED RETINAL ANGIOGRAPHER GATO PEÑA M.D. Performed By: #### E LONNIE, CBC, CMP #### [address] Automated blood monocyte cou ntOrdered By: Juve Spears on 12-16-2023 Monocytes (Bld) [#/Vol] 0.5 10*3/uL Normal 0.0-0.8 [facility] Comment on above: Performed By: #### E LONNIE, CBC, CMP #### [address] Automated eosinophil %Ordere d By: Juve Spears on 12-16-2023 Eosinophils/100 WBC (Bld) 3.9 % Normal . [facility] Comment on above: Performed By: #### E LONNIE, CBC, CMP #### [address] Automated eosinophil countOr dered By: Juve Spears on 12-16-2023 Eosinophils (Bld) [#/Vol] 0.2 10*3/uL Normal 0.0-0.45 [facility] Comment on above: Performed By: #### E LONNIE, CBC, CMP #### [address] Automated monocyte %Ordered By: Juve Spears on 12-16-2023 Monocytes/100 WBC (Bld) 7.5 % Normal . [facility] Comment on above: Performed By: #### E LONNIE, CBC, CMP #### [address] Automated neutrophil %Ordere d By: Juve Spears on 12-16-2023 Neutrophils/100 WBC (Bld) 62.8 % Normal . [facility] Comment on above: Performed By: #### E LONNIE, CBC, CMP #### [address] Barbiturates [Presence] in U rine by Screen methodOrdered By: Juve Spears on 12-16-2023 Barbiturates Screen Ql (U) Negative Negative [facility] Benzodiazepines Screen Ql (U )Ordered By: Juve Spears on 12-16-2023 Benzodiazepines Ql (U) Negative Negative [facility] Benzoylecgonine [Presence] i n Urine by Screen methodOrdered By: Juve Spears on 12-16-2023 Benzoylecgonine Screen Ql (U) Negative Negative [facility] Bilirubin Test strip Ql (U)O rdered By: Juve Spears on 12-16-2023 Bilirubin Ql (U) Negative Negative [facility] Bilirubin.total [Mass/volume ] in Serum or PlasmaOrdered By: Juve Spears on 12-16-2023 Bilirubin [Mass/Vol] 0.3 mg/dL Normal 0.3-1.0 [facility] Comment on above: Performed By: #### E LONNIE, CBC, CMP #### [facility] [address] [place] [address] [place] Calcium [Mass/volume] in Ser um or PlasmaOrdered By: Juve Spears on 12-16-2023 Calcium [Mass/Vol] 9.8 mg/dL Normal 8.6-10.3 [facility] Comment on above: Performed By: #### E LONNIE, CBC, CMP #### [facility] [address] [place] [address] [place] Cannabinoids [Presence] in U rine by Screen methodOrdered By: Juve Spears on 12-16-2023 Cannabinoids Screen Ql (U) Negative Negative [facility] Comment on above: These are unconfirme d results and should not be used for legal purposes. Drug Cut-Off Concentration: AMPH 1000 ng/mL PJ 200 ng/mL BETSY 200 ng/mL COCM 300 ng/mL OP 300 ng/mL PCP 25 ng/mL THC 20 ng/mL Carbon dioxide, total [Moles /volume] in Serum or PlasmaOrdered By: Juve Spears on 12-16-2023 CO2 [Moles/Vol] 22.9 mmol/L Normal 21.0-31.0 [facility] Comment on above: Performed By: #### E LONNIE, CBC, CMP #### [facility] [address] [place] [address] [place] Chloride [Moles/volume] in S kishan or PlasmaOrdered By: Juve Spears on 12-16-2023 Chloride [Moles/Vol] 110 mmol/L High 98-107 [facility] Comment on above: Performed By: #### E LONNIE, CBC, CMP #### [address] Color of Urine by AutoOrdere d By: Juve Spears on 12-16-2023 Color (U) Colorless Normal Yellow [facility] Comment on above: Order Comment: Name Collection Type:: Clean-Voided Midstream Performed By: #### E LONNIE, CBC, CMP #### [address] Complete Blood Count Auto Di ffon 12-16-2023 Mean Corpuscular HGB Conc 33.6 g/dL Normal 32.0-35.0 [facility] Comment on above: Performed By: #### E LONNIE, CBC, CMP #### [address] Monocytes/100 WBC (Bld) 17.55 % Normal 0.00-20.00 [facility] Comment on above: Performed By: #### E LONNIE, CBC, CMP #### [address] NRBC% 0.1 /100{WBC} Normal 0-0.5 [facility] Comment on above: Performed By: #### E LONNIE, CBC, CMP #### [address] Comprehensive Metabolic Pane eusebia 12-16-2023 Albumin [Mass/Vol] 4.1 g/dL Normal 3.5-5.7 [facility] Comment on above: Performed By: #### E LONNIE, CBC, CMP #### [place] [address] [place] Creatinine Clr Calc Pharmacy 32.44 Normal [facility] Comment on above: Result Comment: PERF ORMED BY: [place] [address] PATHOLOGIST CERTIFIED RETINAL ANGIOGRAPHER GATO PEÑA M.D. Performed By: #### E LONNIE, CBC, CMP #### [address] GFR/1.73 sq M.predicted MDRD (S/P/Bld) [Vol rate/Area] 37.657 mL/min/{1.73_m2} Normal [facility] Comment on above: Performed By: #### E LONNIE CBC, CMP #### [address] Creatinine [Mass/volume] in Serum or PlasmaOrdered By: Juve Spears on 12-16-2023 Creatinine [Mass/Vol] 1.51 mg/dL High 0.60-1.[address] [facility] Comment on above: Performed By: #### E HEDY FLEMING, CMP #### [address] Drug Screen,Urineon 12-16-19 24 Amphetamine Screen,Urine Negative Normal Negative [facility] Comment on above: Performed By: #### E LONNIE CBC, CMP #### [address] Barbiturate Screen,Urine Negative Normal Negative [facility] Comment on above: Performed By: #### E HEDY FLEMING, CMP #### [address] Benzodiazepines Screen,Urine Negative Normal Negative [facility] Comment on above: Performed By: #### E HEDY FLEMING, CMP #### [address] Cannabinoid Screen,Urine Negative Normal Negative [facility] Comment on above: Result Comment: Thes e are unconfirmed results and should not be used for legal purposes. Drug Cut-Off Concentration: AMPH 1000 ng/mL PJ 200 ng/mL BETSY 200 ng/mL COCM 300 ng/mL OP 300 ng/mL PCP 25 ng/mL THC 20 ng/mL PERFORMED BY: [place] [address] PATHOLOGIST CERTIFIED RETINAL ANGIOGRAPHER GATO PEÑA M.D. Performed By: #### E LONNIE CBC, CMP #### [facility] [address] Cocaine Screen,Urine Negative Normal Negative [facility] Comment on above: Performed By: #### E LONNIE CBC, CMP #### [address] Opiate Screen,Urine Negative Normal Negative [facility] Comment on above: Performed By: #### E LONNIE CBC, CMP #### [address] Phencyclidine Screen,Urine Negative Normal Negative [facility] Comment on above: Performed By: #### E LONNIE CBC, CMP #### [address] Erythrocyte distribution wid th [Ratio] by Automated countOrdered By: Juve Spears on 12-16-2023 Erythrocyte distribution width (RBC) [Ratio] 14.6 % Normal 11.9-15.3 [facility] Comment on above: Performed By: #### E LONNIE CBC, CMP #### [address] Erythrocytes [#/volume] in B lood by Automated countOrdered By: Juve Spears on 12-16-2023 RBC (Bld) [#/Vol] 3.85 10*6/uL Normal 3.60-5.00 [facility] Comment on above: Performed By: #### E LONNIE CBC, CMP #### [address] Ethanol [Mass/volume] in Ser um or PlasmaOrdered By: Juve Spears on 12-16-2023 Ethanol [Mass/Vol] mg/dL Normal [facility] Comment on above: Performed By: #### E LONNIE CBC, CMP #### [address] Ethanol [Mass/Vol] TNP [facility] Comment on above: Test not performed Ethyl Alcohol Profileon 12-01 Percent Ethanol Not performed Normal [facility] Comment on above: Result Comment: PERF ORMED BY: [place] [address] PATHOLOGIST CERTIFIED RETINAL ANGIOGRAPHER GATO PEÑA M.D. Performed By: #### E LONNIE CBC, CMP #### [address] Glucose [Mass/volume] in Ser um or PlasmaOrdered By: Juve Spears on 12-16-2023 Glucose [Mass/Vol] 138 mg/dL High 70-100 [facility] Comment on above: ADA recommended refe rence rangeRandom Glucose Reference Range is dependent on time and content of last meal. Glucose of more than 200 mg/dL in a nonstressed, ambulatory subject supports the diagnosis of Diabetes Mellitus. Result Comment: [place] om Glucose Reference Range is dependent on time and content of last meal. Glucose of more than 200 mg/dL in a nonstressed, ambulatory subject supports the diagnosis of Diabetes Mellitus. ADA recommended reference range Performed By: #### E LONNIE CBC, CMP #### [address] Glucose [Mass/volume] in Uri ne by Test stripOrdered By: Juve Spears on 12-16-2023 Glucose Test strip (U) [Mass/Vol] Normal mg/dL Normal [facility] Hematocrit [Volume Fraction] of Blood by Automated countOrdered By: Juve Spears on 12-16-2023 Hematocrit (Bld) [Volume fraction] 36.4 % Normal 34.0-46.4 [facility] Comment on above: Performed By: #### E LONNIE CBC, CMP #### [place] [id number] [place] Hemoglobin Test strip Ql (U) Ordered By: Juve Spears on 12-16-2023 Hemoglobin Ql (U) Negative Negative [facility] Hemoglobin [Mass/volume] in BloodOrdered By: Juve Spears on 12-16-2023 Hemoglobin (Bld) [Mass/Vol] 12.2 g/dL Normal 11.8-15.4 [facility] Comment on above: Performed By: #### E LONNIE CBC, CMP #### [address] [address] [place] Ketones [Presence] in Urine by Test stripOrdered By: Juve Spears on 12-16-2023 Ketones Ql (U) Negative Normal Negative [facility] Comment on above: Order Comment: Name Collection Type:: Clean-Voided Midstream Performed By: #### E LONNIE, CBC, CMP #### [facility] [address] [place] [address] [place] Leukocyte esterase [Presence ] in Urine by Test stripOrdered By: Juve Spears on 12-16-2023 Leukocyte esterase Test strip Ql (U) Negative Normal Negative [facility] Comment on above: Order Comment: Name Collection Type:: Clean-Voided Midstream Performed By: #### E LONNIE, CBC, CMP #### [facility] [address] [place] [address] [place] Leukocytes [#/volume] correc cornelia for nucleated erythrocytes in Blood by Automated counOrdered By: Juve Spears on 12-16-2023 WBC corrected for nucl RBC Auto (Bld) [#/Vol] 6.3 10*3/uL 3.8-11.6 [facility] Leukocytes [#/volume] in Blo od by Automated countOrdered By: Juve Spears on 12-16-2023 WBC (Bld) [#/Vol] 6.3 10*3/uL Normal 3.8-11.6 [facility] Comment on above: Performed By: #### E LONNIE, CBC, CMP #### [facility] [address] [place] [address] [place] Lymphocytes [#/volume] in Bl ood by Automated countOrdered By: Juve Spears on 12-16-2023 Lymphocytes (Bld) [#/Vol] 1.6 10*3/uL Normal 1.00-4.8 [facility] Comment on above: Performed By: #### E LONNIE, CBC, CMP #### [facility] [address] [place] [address] [place] Lymphocytes/100 leukocytes i n Blood by Automated countOrdered By: Juve Spears on 12-16-2023 Lymphocytes/100 WBC (Bld) 24.9 % Normal . [facility] Comment on above: Performed By: #### E LONNIE, CBC, CMP #### [facility] [address] MCH [Entitic mass] by Automa cornelia countOrdered By: Juve Spears on 12-16-2023 MCH (RBC) [Entitic mass] 31.7 pg Normal 24.7-34.3 [facility] Comment on above: Performed By: #### E LONNIE, CBC, CMP #### [facility] [address] MCHC Auto (RBC) [Mass/Vol]Or dered By: Juve Spears on 12-16-2023 MCHC (RBC) [Mass/Vol] 33.6 g/dL 32.0-35.[address] [facility] MCV [Entitic volume] by Auto mated countOrdered By: Juve Spears on 12-16-2023 MCV (RBC) [Entitic vol] 94.5 fL Normal 80-[address] [facility] Comment on above: Performed By: #### E LONNIE, CBC, CMP #### [facility] [address] [place] [address] Monocyte distribution width [Entitic volume] in Blood by AutomatedOrdered By: Juve Spears on 12-16-2023 Monocyte distribution width Auto (Bld) [Entitic vol] 17.55 % 0.00-20.00 [facility] Neutrophils [#/volume] in Bl ood by Automated countOrdered By: Juve Spears on 12-16-2023 Neutrophils (Bld) [#/Vol] 4.0 10*3/uL Normal 1.8-7.7 [facility] Comment on above: Performed By: #### E LONNIE, CBC, CMP #### [facility] [address] [place] [address] Nitrite Test strip Ql (U)Ord ered By: Juve Spears on 12-16-2023 Nitrite Ql (U) Negative Negative [facility] No Panel InformationOrdered By: Juve Spears on 12-16-2023 Estimated GFR (CKD-EPI) 37.657 mL/Min [facility] Creatinine Clearance (Chem 32.44 [facility] Nucleated erythrocytes [Pres ence] in Blood by Automated countOrdered By: Juve Spears on 12-16-2023 Nucleated RBC Auto Ql (Bld) 0.1 /100{WBC} 0-0.5 [facility] Opiates [Presence] in Urine by Screen methodOrdered By: Juve Spears on 12-16-2023 Opiates Screen Ql (U) Negative Negative [facility] Phencyclidine Screen Ql (U)O rdered By: Juve Spears on 12-16-2023 Phencyclidine Ql (U) Negative Negative [facility] Platelet mean volume [Entiti c volume] in Blood by Automated countOrdered By: Juve Spears on 12-16-2023 Platelet mean volume (Bld) [Entitic vol] 8.4 fL Normal 6.3-10.7 [facility] Comment on above: Performed By: #### E LONNIE, CBC, CMP #### [facility] [address] [place] [address] [place] Platelets [#/volume] in Bloo d by Automated countOrdered By: Juve Spears on 12-16-2023 Platelets (Bld) [#/Vol] 229 10*3/uL Normal 150-450 [facility] Comment on above: Performed By: #### E LONNIE, CBC, CMP #### [facility] [address] [place] [address] [place] Potassium [Moles/volume] in Serum or PlasmaOrdered By: Juve Spears on 12-16-2023 Potassium [Moles/Vol] 3.8 mmol/L Normal 3.5-5.[address] [facility] Comment on above: Performed By: #### E LONNIE, CBC, CMP #### [facility] [address] [place] [address] [place] Protein Test strip (U) [Mass /Vol]Ordered By: Juve Spears on 12-16-2023 Protein (U) [Mass/Vol] Negative Negative [facility] Protein [Mass/volume] in Ser um or PlasmaOrdered By: Juve Spears on 12-16-2023 Protein [Mass/Vol] 6.6 g/dL Normal 6.4-8.9 [facility] Comment on above: Performed By: #### E HEDY FLEMING, CMP #### [facility] [address] [place] [address] Serum globulin measurement b y calculation (mass/volume)Ordered By: Juve Spears on 12-16-2023 Globulin (S) [Mass/Vol] 2.5 g/dL Normal F [facility] Comment on above: Performed By: #### E HEDY FLEMING, CMP #### [address] Serum or plasma albumin/glob ulin mass ratioOrdered By: Juve Spears on 12-16-2023 Albumin/Globulin [Mass ratio] 1.6 {ratio} Normal [facility] Comment on above: Performed By: #### E HEDY FLEMING, CMP #### [address] Serum or plasma anion gap de terminationOrdered By: Juve Spears on 12-16-2023 Anion gap [Moles/Vol] 9.9 mmol/L Normal 6.0-15.[address] [facility] Comment on above: Performed By: #### E HEDY FLEMING, CMP #### [address] Sodium [Moles/volume] in Ser um or PlasmaOrdered By: Juve Spears on 12-16-2023 Sodium [Moles/Vol] 139 mmol/L Normal 136-145 [facility] Comment on above: Performed By: #### E HEDY FLEMING, CMP #### [address] Specific gravity Test strip (U) [Rel density]Ordered By: Juve Spears on 12-16-2023 Specific gravity (U) [Rel density] 1.005 1.001-1.03 0 [facility] Urea nitrogen [Mass/volume] in Serum or PlasmaOrdered By: Juve Spears on 12-16-2023 Urea nitrogen [Mass/Vol] 26 mg/dL High 7-25 [facility] Comment on above: Performed By: #### E HEDY FLEMING, CMP #### [place] [address] [place] [address] [place] Urinalysison 12-16-2023 Bilirubin,Urine Negative Normal Negative [facility] Comment on above: Order Comment: Name Collection Type:: Clean-Voided Midstream Performed By: #### E LONNIE, CBC, CMP #### [address] Glucose Ql (U) Normal Normal Normal [facility] Comment on above: Order Comment: Name Collection Type:: Clean-Voided Midstream Performed By: #### E LONNIE, CBC, CMP #### [place] [address] [place] Nitrite,Urine Negative Normal Negative [facility] Comment on above: Order Comment: Name Collection Type:: Clean-Voided Midstream Performed By: #### E LONNIE, CBC, CMP #### [place] [address] [place] Occult Blood,Urine Negative Normal Negative [facility] Comment on above: Order Comment: Name Collection Type:: Clean-Voided Midstream Result Comment: PERF ORMED BY: [place] [address] PATHOLOGIST CERTIFIED RETINAL ANGIOGRAPHER GATO PEÑA M.D. Performed By: #### E LONNIE, CBC, CMP #### [address] Protein,Urine Negative Normal Negative [facility] Comment on above: Order Comment: Name Collection Type:: Clean-Voided Midstream Performed By: #### E LONNIE, CBC, CMP #### [place] [address] [place] Specificy [place],Urine 1.005 Normal 1.00 1-1.03 0 [facility] Comment on above: Order Comment: Name Collection Type:: Clean-Voided Midstream Performed By: #### E OLNNIE, CBC, CMP #### [place] [address] [place] Urobilinogen,Urine Normal Normal Normal [facility] Comment on above: Order Comment: Name Collection Type:: Clean-Voided Midstream Performed By: #### E HEDY FLEMING, CMP #### [facility] [address] [place] [address] Urine appearanceOrdered By: Juve Spears on 12-16-2023 Appearance (U) Clear Normal Clear [facility] Comment on above: Order Comment: Name Collection Type:: Clean-Voided Midstream Performed By: #### E LONNIE CBC, CMP #### [facility] [address] [place] [address] Urobilinogen Test strip (U) [Mass/Vol]Ordered By: Juve Spears on 12-16-2023 Urobilinogen (U) [Mass/Vol] Normal mg/dL Normal [facility] pH of Urine by Test stripOrd ered By: Juve Spears on 12-16-2023 pH (U) 7.0 [pH] Normal 5.0-9.0 [facility] Comment on above: Order Comment: Name Collection Type:: Clean-Voided Midstream Performed By: #### E HEDY FLEMING, CMP #### [facility] [address] [place] [address] CNOVon 09-27-2023 CNOV Office Visit (OTOLMN ) -------- GAIL ALMEIDA ([id number]) 1955 F Date Time Provider Department 09/27/23 9:45 AM YANDEL DANIEL During your visit today, we recorded the following information about you: Yandel Daniel MD 09/28/2023 1:37 PM Signed Gail Almeida [id number] September 27, 2023 [facility] Note [...] by mouth every 12 hours as needed. zyyhbz-nownbbwn-zrbdiom (ENZADYNE) 9,000-112,500- 112,500 unit capsule Take 1 [...] [place] Angela (more content not included)... Normal [facility] Basic Metabolic Panelon 08-01 Creatinine Clr Calc Pharmacy 37.44 Normal [facility] Comment on above: Order Comment: Comme nt Prior to surgery on 08/19 Result Comment: PERF ORMED BY: [place] [address] PATHOLOGIST CERTIFIED RETINAL ANGIOGRAPHER GATO PEÑA M.D. Performed By: #### E LONNIE, CBC, CMP #### [place] [address] [place] GFR/1.73 sq M.predicted MDRD (S/P/Bld) [Vol rate/Area] 42.961 mL/min/{1.73_m2} Normal [facility] Comment on above: Order Comment: Comme nt Prior to surgery on 08/19 Performed By: #### E LONNIE CBC, CMP #### [facility] [address] [place] [address] [place] Calcium [Mass/volume] in Ser um or PlasmaOrdered By: Lucy Carolina on 08-20-2023 Calcium [Mass/Vol] 9.7 mg/dL Normal 8.6-10.3 [facility] Comment on above: Order Comment: Comme nt Prior to surgery on 08/19 Performed By: #### E LONNIE CBC, CMP #### [facility] [address] [place] [address] [place] Carbon dioxide, total [Moles /volume] in Serum or PlasmaOrdered By: Lucy Carolina on 08-20-2023 CO2 [Moles/Vol] 22.2 mmol/L Normal 21.0-31.0 [facility] Comment on above: Order Comment: Comme nt Prior to surgery on 08/19 Performed By: #### E LONNIE, CBC, CMP #### [facility] [address] [id number] [place] Chloride [Moles/volume] in S kishan or PlasmaOrdered By: Lucy Carolina on 08-20-2023 Chloride [Moles/Vol] 112 mmol/L High 98-107 [facility] Comment on above: Order Comment: Comme nt Prior to surgery on 08/19 Performed By: #### E HEDY FLEMING, CMP #### [facility] [address] Creatinine [Mass/volume] in Serum or PlasmaOrdered By: Lucy Carolina on 08-20-2023 Creatinine [Mass/Vol] 1.36 mg/dL High 0.60-1.[address] [facility] Comment on above: Order Comment: Comme nt Prior to surgery on 08/19 Performed By: #### E HEDY FLEMING, CMP #### [facility] [address] Glucose [Mass/volume] in Ser um or PlasmaOrdered By: Lucy Carolina on 08-20-2023 Glucose [Mass/Vol] 98 mg/dL Normal 70-100 [facility] Comment on above: ADA recommended refe rence rangeRandom Glucose Reference Range is dependent on time and content of last meal. Glucose of more than 200 mg/dL in a nonstressed, ambulatory subject supports the diagnosis of Diabetes Mellitus. Order Comment: Comme nt Prior to surgery on 08/19 Result Comment: [place] om Glucose Reference Range is dependent on time and content of last meal. Glucose of more than 200 mg/dL in a nonstressed, ambulatory subject supports the diagnosis of Diabetes Mellitus. ADA recommended reference range Performed By: #### E HEDY FLEMING, CMP #### [facility] [address] No Panel InformationOrdered By: Lucy Carolina on 08-20-2023 Estimated GFR (CKD-EPI) 42.961 mL/Min [facility] Creatinine Clearance (Chem 37.44 [facility] Potassium [Moles/volume] in Serum or PlasmaOrdered By: Lucy Carolina on 08-20-2023 Potassium [Moles/Vol] 4.5 mmol/L Normal 3.5-5.[address] [facility] Comment on above: Order Comment: Comme nt Prior to surgery on 08/19 Performed By: #### E LONNIE, CBC, CMP #### [facility] [address] [place] [address] [place] Serum or plasma anion gap de terminationOrdered By: Lucy Carolina on 08-20-2023 Anion gap [Moles/Vol] 12.3 mmol/L Normal 6.0-15.0 [facility] Comment on above: Order Comment: Comme nt Prior to surgery on 08/19 Performed By: #### E LONNIE CBC, CMP #### [facility] [address] [place] [address] [place] Sodium [Moles/volume] in Ser um or PlasmaOrdered By: Lucy Carolina on 08-20-2023 Sodium [Moles/Vol] 142 mmol/L Normal 136-145 [facility] Comment on above: Order Comment: Comme nt Prior to surgery on 08/19 Performed By: #### E LONNIE CBC, CMP #### [facility] [address] [place] [address] [place] Urea nitrogen [Mass/volume] in Serum or PlasmaOrdered By: Lucy Carolina on 08-20-2023 Urea nitrogen [Mass/Vol] 39 mg/dL High 7-25 [facility] Comment on above: Order Comment: Comme nt Prior to surgery on 08/19 Performed By: #### E LONNIE CBC, CMP #### [facility] [address] [place] [address] [place] Cholesterol [Mass/volume] in Serum or PlasmaOrdered By: Joe Davis on 08-16-2023 Cholesterol [Mass/Vol] 150 mg/dL Normal 140-200 [facility] Comment on above: Chol less than 200 m g/dl low riskChol 201-239 mg/dl borderline riskChol 240 mg/dl and greater high risk Result Comment: Chol less than 200 mg/dl low risk Chol 201-239 mg/dl borderline risk Chol 240 mg/dl and greater high risk Performed By: #### T 4F, [id number], TSH3 wRFLX, LIPID #### [facility] [address] [place] [address] [place] Cholesterol in LDL Calc [Mas s/Vol]Ordered By: Joe Davis on 08-16-2023 Cholesterol in LDL [Mass/Vol] 74 mg/dL 0-100 [facility] Comment on above: LDL ATP III CLASSIFI CATIONLDL less than 100 mg/dL OptimalLDL 100-129 mg/dL Near or above optimalLDL 130-159 mg/dL Borderline highLDL 160-189 mg/dL HighLDL greater than 189 mg/dL Very high Cholesterol in VLDL Calc [Ma ss/Vol]Ordered By: Joe Davis on 08-16-2023 Cholesterol in VLDL [Mass/Vol] 11 mg/dL [facility] ECG 12 lead ECGon 08-16-2023 ECG 12 lead ECG [facility] [place] [address] [place] [address] Electrocardiograph Report Signed Patient: Gail Almeida MR#: [id number] : 1955 Acct:[id number] Age/Sex: 67 / F ADM Date: 08/15/23 Loc: Room: [address] [place] [address] Type: ADM IN Attending Dr: Joe Davis MD Ordering Provider: Joe Davis MD Date of Service: 08/16/23 ECG/ECG 12 lead ECG: baseline for gamigo meds Copies to: Test Reason : Blood [...] MD 0 08/16/23 1438 Normal [facility] Lipid Panelon 08-16-2023 LDL Cholesterol,Calculated 74 mg/dL Normal 0-100 [facility] Comment on above: Result Comment: LDL ATP III CLASSIFICATION LDL less than 100 mg/dL Optimal LDL 100-129 mg/dL Near or above optimal LDL 130-159 mg/dL Borderline high LDL 160-189 mg/dL High LDL greater than 189 mg/dL Very high Performed By: #### T 4F, [id number], TSH3 wRFLX, LIPID #### [facility] [address] Triglyceride w/Reflex 57 mg/dL Normal 0-149 [facility] Comment on above: Result Comment: TRIG ATP III CLASSIFICATION TRIG less than 150 mg/dL Normal TRIG 150-199 mg/dL Borderline high TRIG 200-500 mg/dL High TRIG greater than 500 mg/dL Very high Standard traceable to the Center for Disease Conrtrol and Prevention (CDC) test method. Performed By: #### T 4F, [id number], TSH3 wRFLX, LIPID #### [facility] [address] VLDL CHOLESTEROL 11 mg/dL Normal [facility] Comment on above: Performed By: #### T 4F, [id number], TSH3 wRFLX, LIPID #### [facility] [address] [place] [Moles/volume] in Se rum or PlasmaOrdered By: Joe Davis on 08-16-2023 [place] [Moles/Vol] 0.50 mmol/L Low 0.60-1.20 [facility] Comment on above: Result Comment: PERF ORMED BY: [place] [address] PATHOLOGIST CERTIFIED RETINAL ANGIOGRAPHER GATO PEÑA M.D. Performed By: #### L ITH #### [facility] [address] [place] [address] Serum or plasma high density lipoprotein (HDL) cholesterol measurementOrdered By: Joe Davis on 08-16-2023 Cholesterol in HDL [Mass/Vol] 65 mg/dL Normal 23-92 [facility] Comment on above: HDL CHOL ATP-III CLA SSIFICATION Cardiovascular RiskHDL > or equal to 60 mg/dL LOWHDL < 40 mg/dL HIGH Result Comment: HDL CHOL ATP-III CLASSIFICATION Cardiovascular Risk HDL > or equal to 60 mg/dL LOW HDL < 40 mg/dL HIGH Performed By: #### T 4F, [id number], TSH3 wRFLX, LIPID #### [facility] [address] [place] [address] Serum or plasma total choles terol/high density lipoprotein (HDL) cholesterol mass ratOrdered By: Joe Davis on 08-16-2023 Cholesterol.total/Judy sterol in HDL [Mass ratio] 2.3 {ratio} Normal <5.0 [facility] Comment on above: Performed By: #### T 4F, [id number], TSH3 wRFLX, LIPID #### [facility] [address] [place] [address] Thyroid Stim Hormone w/Rflxo n 08-16-2023 Thyroid Stim Hormone w/Rflx 9.75 u[iU]/mL High 0.45-5.33 [facility] Comment on above: Performed By: #### T 4F, [id number], TSH3 wRFLX, LIPID #### [facility] [address] [place] [address] Thyrotropin [Units/volume] i n Serum or PlasmaOrdered By: Joe Davis on 08-16-2023 TSH Qn 9.75 m[IU]/L 0.45-5.33 [facility] Thyroxine (T4) free [Mass/vo lume] in Serum or PlasmaOrdered By: Joe Davis on 08-16-2023 Free T4 [Mass/Vol] 0.69 ng/dL Normal 0.61-1.12 [facility] Comment on above: Performed By: #### T 4F, [id number], TSH3 wRFLX, LIPID #### [facility] [address] [place] [address] Triglyceride [Mass/volume] i n Serum or PlasmaOrdered By: Joe Davis on 08-16-2023 Triglyceride [Mass/Vol] 57 mg/dL 0-[address] [facility] Comment on above: TRIG ATP III CLASSIF ICATIONTRIG less than 150 mg/dL NormalTRIG 150-199 mg/dL Borderline highTRIG 200-500 mg/dL High TRIG greater than 500 mg/dL Very highStandard traceable to the Center for Disease Conrtrol and Prevention (CDC) test method. Vitamin D 25 Hydroxy Totalon 08-16-2023 Vitamin D 25 Hydroxy Total 28.6 ng/mL Low 30-100 [facility] Comment on above: Result Comment: EDUARDO MIN D STATUS 25(OH)VITAMIN D RANGE (ng/mL) Deficient <20 Insufficient 20 to <30 Sufficient 30 to 100 Reference: Renée Woodward, Francisco CARPIO, et al. Evaluation,treatment, and prevention of vitamin D deficiency; an Endocrine Society clinical practice guideline. JCEM. 2010; 96(7):1911-. PERFORMED BY: [place] [address] [facility] CERTIFIED RETINAL ANGIOGRAPHER GATO PEÑA M.D. Performed By: #### E LONNIE, CBC, CMP #### [address] Vitamin D+Metabolites [Mass/ volume] in Serum or PlasmaOrdered By: Joe Davis on 08-16-2023 Vitamin D+Metabolites [Mass/Vol] 28.6 ng/mL 30-100 [facility] Comment on above: VITAMIN D STATUS [...] ALT [Catalytic activity/Vol] 33 U/L Normal 7-52 [facility] Comment on above: Performed By: #### E LONNIE, CBC, CMP #### [address] Albumin [Mass/volume] in Ser um or Plasma by Bromocresol green (BCG) dye binding methoOrdered By: Nimesh Westfall on 08-15-2023 Albumin BCG dye [Mass/Vol] 4.5 g/dL 3.5-5.7 [facility] Alkaline phosphatase [Enzyma tic activity/volume] in Serum or PlasmaOrdered By: Nimesh Westfall on 08-15-2023 ALP [Catalytic activity/Vol] 96 U/L Normal 34-104 [facility] Comment on above: Performed By: #### E LONNIE, CBC, CMP #### [address] Amphetamine Screen Ql (U)Ord ered By: Nimesh Westfall on 08-15-2023 Amphetamines Ql (U) Negative Negative [facility] Aspartate aminotransferase [ Enzymatic activity/volume] in Serum or PlasmaOrdered By: Nimesh Westfall on 08-15-2023 AST [Catalytic activity/Vol] 21 U/L Normal 13-39 [facility] Comment on above: Performed By: #### E LONNIE, CBC, CMP #### [address] Automated basophil %Ordered By: Nimesh Westfall on 08-15-2023 Basophils/100 WBC (Bld) 1.3 % Normal . F [facility] Comment on above: Performed By: #### E LONNIE, CBC, CMP #### [address] Automated basophil countOrde red By: Nimesh Westfall on 08-15-2023 Basophils (Bld) [#/Vol] 0.1 10*3/uL Normal 0.0-0.2 [facility] Comment on above: Result Comment: PERF ORMED BY: [place] [address] PATHOLOGIST CERTIFIED RETINAL ANGIOGRAPHER GATO PEÑA M.D. Performed By: #### E LONNIE, CBC, CMP #### [address] Automated blood monocyte cou ntOrdered By: Nimesh Westfall on 08-15-2023 Monocytes (Bld) [#/Vol] 0.5 10*3/uL Normal 0.0-0.8 [facility] Comment on above: Performed By: #### E LONNIE, CBC, CMP #### [address] Automated eosinophil %Ordere d By: Nimesh Westfall on 08-15-2023 Eosinophils/100 WBC (Bld) 6.4 % Normal . [facility] Comment on above: Performed By: #### E LONNIE, CBC, CMP #### [address] Automated eosinophil countOr dered By: Nimesh Westfall on 08-15-2023 Eosinophils (Bld) [#/Vol] 0.3 10*3/uL Normal 0.0-0.45 [facility] Comment on above: Performed By: #### E LONNIE, CBC, CMP #### [address] Automated erythrocytes count in urine sediment (number/area)Ordered By: Nimesh Westfall on 08-15-2023 RBC Auto (Urine sed) [#/Area] None seen [HPF] 0-4 [facility] Automated leukocytes count i n urine sediment (number/area)Ordered By: Nimesh Westfall on 08-15-2023 WBC Auto (Urine sed) [#/Area] 3-4 [HPF] 0-4 [facility] Automated monocyte %Ordered By: Nimesh Westfall on 08-15-2023 Monocytes/100 WBC (Bld) 10.6 % Normal . F [facility] Comment on above: Performed By: #### E LONNIE, CBC, CMP #### [address] Automated neutrophil %Ordere d By: Nimesh Westfall on 08-15-2023 Neutrophils/100 WBC (Bld) 45.1 % Normal . [facility] Comment on above: Performed By: #### E LONNIE, CBC, CMP #### [address] Automated urine color determ inationOrdered By: Nimesh Westfall on 08-15-2023 Color (U) Yellow Normal Yellow [facility] Comment on above: Order Comment: Name Collection Type:: Clean-Voided Midstream Performed By: #### E LONNIE, CBC, CMP #### [facility] [address] Barbiturates [Presence] in U rine by Screen methodOrdered By: Nimesh Westfall on 08-15-2023 Barbiturates Screen Ql (U) Negative Negative [facility] Benzodiazepines Screen Ql (U )Ordered By: Nimesh Westfall on 08-15-2023 Benzodiazepines Ql (U) Negative Negative [facility] Benzoylecgonine [Presence] i n Urine by Screen methodOrdered By: Nimesh Westfall on 08-15-2023 Benzoylecgonine Screen Ql (U) Negative Negative [facility] Bilirubin Test strip Ql (U)O rdered By: Nimesh Westfall on 08-15-2023 Bilirubin Ql (U) Negative Negative [facility] Bilirubin.total [Mass/volume ] in Serum or PlasmaOrdered By: Nimesh Westfall on 08-15-2023 Bilirubin [Mass/Vol] 0.3 mg/dL Normal 0.3-1.0 [facility] Comment on above: Performed By: #### E LONNIE, CBC, CMP #### [facility] [address] [place] [address] Calcium [Mass/volume] in Ser um or PlasmaOrdered By: Nimesh Westfall on 08-15-2023 Calcium [Mass/Vol] 9.4 mg/dL Normal 8.6-10.3 [facility] Comment on above: Performed By: #### E LONNIE, CBC, CMP #### [facility] [address] Cannabinoids [Presence] in U rine by Screen methodOrdered By: Nimesh Westfall on 08-15-2023 Cannabinoids Screen Ql (U) Negative Negative [facility] Comment on above: These are unconfirme d results and should not be used for legal purposes. Drug Cut-Off Concentration: AMPH 1000 ng/mL PJ 200 ng/mL BETSY 200 ng/mL COCM 300 ng/mL OP 300 ng/mL PCP 25 ng/mL THC 20 ng/mL Carbon dioxide, total [Moles /volume] in Serum or PlasmaOrdered By: Nimesh Malou on 08-15-2023 CO2 [Moles/Vol] 25.3 mmol/L Normal 21.0-31.0 [facility] Comment on above: Performed By: #### E LONNIE, CBC, CMP #### [address] Chloride [Moles/volume] in S kishan or PlasmaOrdered By: Nimesh Westfall on 08-15-2023 Chloride [Moles/Vol] 109 mmol/L High 98-107 [facility] Comment on above: Performed By: #### E LONNIE, CBC, CMP #### [address] Complete Blood Count Auto Di ffon 08-15-2023 Mean Corpuscular HGB Conc 33.0 g/dL Normal 32.0-35.0 [facility] Comment on above: Performed By: #### E LONNIE, CBC, CMP #### [address] Monocytes/100 WBC (Bld) 16.42 % Normal 0.00-20.00 [facility] Comment on above: Performed By: #### E LONNIE, CBC, CMP #### [address] NRBC% 0.1 /100{WBC} Normal 0-0.5 [facility] Comment on above: Performed By: #### E LONNIE, CBC, CMP #### [address] Comprehensive Metabolic Pane eusebia 08-15-2023 Albumin [Mass/Vol] 4.5 g/dL Normal 3.5-5.7 [facility] Comment on above: Performed By: #### E LONNIE, CBC, CMP #### [place] [address] [place] Creatinine Clr Calc Pharmacy 40.94 Normal [facility] Comment on above: Result Comment: PERF ORMED BY: [place] [address] PATHOLOGIST CERTIFIED RETINAL ANGIOGRAPHER GATO PEÑA M.D. Performed By: #### E LONNIE, CBC, CMP #### [facility] [address] [place] [address] GFR/1.73 sq M.predicted MDRD (S/P/Bld) [Vol rate/Area] 47.997 mL/min/{1.73_m2} Normal [facility] Comment on above: Performed By: #### E LONNIE, CBC, CMP #### [address] Creatinine [Mass/volume] in Serum or PlasmaOrdered By: Nimesh Westfall on 08-15-2023 Creatinine [Mass/Vol] 1.24 mg/dL High 0.60-1.[address] [facility] Comment on above: Performed By: #### E LONNIE, CBC, CMP #### [place] [address] [place] Dipstick and Microscopicon 0 08-15-2023 Appearance (U) Clear Normal Clear [facility] Comment on above: Order Comment: Name Collection Type:: Clean-Voided Midstream Performed By: #### E LONNIE, CBC, CMP #### [place] [address] [place] Bacteria,Urine None Seen Normal None Seen [facility] Comment on above: Order Comment: Name Collection Type:: Clean-Voided Midstream Performed By: #### E LONNIE, CBC, CMP #### [place] [address] [place] Bilirubin,Urine Negative Normal Negative [facility] Comment on above: Order Comment: Name Collection Type:: Clean-Voided Midstream Performed By: #### E LONNIE, CBC, CMP #### [facility] [address] [place] [address] [place] Glucose Ql (U) Normal Normal Normal [facility] Comment on above: Order Comment: Name Collection Type:: Clean-Voided Midstream Performed By: #### E LONNIE, CBC, CMP #### [place] [address] [place] Hyaline Casts,Urine None Seen Normal 0-8 [facility] Comment on above: Order Comment: Name Collection Type:: Clean-Voided Midstream Result Comment: PERF ORMED BY: [place] [address] PATHOLOGIST CERTIFIED RETINAL ANGIOGRAPHER GATO PEÑA M.D. Performed By: #### E LONNIE, CBC, CMP #### [place] [address] [place] Ketones Ql (U) Negative Normal Negative [facility] Comment on above: Order Comment: Name Collection Type:: Clean-Voided Midstream Performed By: #### E LONNIE, CBC, CMP #### [place] [address] [place] Leukocyte esterase Test strip Ql (U) 3+ High Negative [facility] Comment on above: Order Comment: Name Collection Type:: Clean-Voided Midstream Performed By: #### E LONNIE, CBC, CMP #### [place] [address] [place] Nitrite,Urine Negative Normal Negative [facility] Comment on above: Order Comment: Name Collection Type:: Clean-Voided Midstream Performed By: #### E LONNIE, CBC, CMP #### [place] [address] [place] Occult Blood,Urine Negative Normal Negative [facility] Comment on above: Order Comment: Name Collection Type:: Clean-Voided Midstream Result Comment: PERF ORMED BY: [place] [address] PATHOLOGIST CERTIFIED RETINAL ANGIOGRAPHER GATO PEÑA M.D. Performed By: #### E LONNIE, CBC, CMP #### [address] [address] [place] Protein,Urine Negative Normal Negative [facility] Comment on above: Order Comment: Name Collection Type:: Clean-Voided Midstream Performed By: #### E LONNIE, CBC, CMP #### [address] RBC,Urine None Seen Normal 0-4 [facility] Comment on above: Order Comment: Name Collection Type:: Clean-Voided Midstream Performed By: #### E LONNIE, CBC, CMP #### [address] Specificy [place],Urine 1.005 Normal 1.00 1-1.03 0 [facility] Comment on above: Order Comment: Name Collection Type:: Clean-Voided Midstream Performed By: #### E LONNIE, CBC, CMP #### [address] Squamous Epithelial Cell,Urine None Seen Normal 0-2 [facility] Comment on above: Order Comment: Name Collection Type:: Clean-Voided Midstream Performed By: #### E LONNIE, CBC, CMP #### [address] Urobilinogen,Urine Normal Normal Normal [facility] Comment on above: Order Comment: Name Collection Type:: Clean-Voided Midstream Performed By: #### E LONNIE, CBC, CMP #### [address] WBC,Urine 3-4 Normal 0-4 [facility] [facility] Comment on above: Order Comment: Name Collection Type:: Clean-Voided Midstream Performed By: #### E LONNIE, CBC, CMP #### [address] Drug Screen,Urineon 08-15-19 24 Amphetamine Screen,Urine Negative Normal Negative [facility] Comment on above: Performed By: #### E LONNIE, CBC, CMP #### [address] Barbiturate Screen,Urine Negative Normal Negative [facility] Comment on above: Performed By: #### E LONNIE, CBC, CMP #### [place] [address] [place] Benzodiazepines Screen,Urine Negative Normal Negative [facility] Comment on above: Performed By: #### E LONNIE, CBC, CMP #### [address] Cannabinoid Screen,Urine Negative Normal Negative [facility] Comment on above: Result Comment: Thes e are unconfirmed results and should not be used for legal purposes. Drug Cut-Off Concentration: AMPH 1000 ng/mL PJ 200 ng/mL BETSY 200 ng/mL COCM 300 ng/mL OP 300 ng/mL PCP 25 ng/mL THC 20 ng/mL PERFORMED BY: [place] [address] PATHOLOGIST CERTIFIED RETINAL ANGIOGRAPHER GATO PEÑA M.D. Performed By: #### E LONNIE, CBC, CMP #### [address] Cocaine Screen,Urine Negative Normal Negative [facility] Comment on above: Performed By: #### E LONNIE CBC, CMP #### [address] Opiate Screen,Urine Negative Normal Negative [facility] Comment on above: Performed By: #### E LONNIE CBC, CMP #### [address] Phencyclidine Screen,Urine Negative Normal Negative [facility] Comment on above: Performed By: #### E LONNIE, CBC, CMP #### [address] Erythrocyte distribution wid th [Ratio] by Automated countOrdered By: Nimesh Westfall on 08-15-2023 Erythrocyte distribution width (RBC) [Ratio] 14.2 % Normal 11.9-15.3 [facility] Comment on above: Performed By: #### E LONNIE, CBC, CMP #### [address] Erythrocytes [#/volume] in B lood by Automated countOrdered By: Nimesh Westfall on 08-15-2023 RBC (Bld) [#/Vol] 3.95 10*6/uL Normal 3.60-5.00 [facility] Comment on above: Performed By: #### E LONNIE, CBC, CMP #### [facility] [address] Ethanol [Mass/volume] in Ser um or PlasmaOrdered By: Nimesh Westfall on 08-15-2023 Ethanol [Mass/Vol] mg/dL Normal [facility] Comment on above: Performed By: #### E LONNIE, CBC, CMP #### [facility] [address] Ethanol [Mass/Vol] TNP [facility] Comment on above: Test not performed Ethyl Alcohol Profileon 08-01 Percent Ethanol Not performed Normal The [facility] Comment on above: Result Comment: PERF ORMED BY: [place] [address] PATHOLOGIST CERTIFIED RETINAL ANGIOGRAPHER GATO PEÑA M.D. Performed By: #### E LONNIE, CBC, CMP #### [address] Glucose [Mass/volume] in Ser um or PlasmaOrdered By: Nimesh Westfall on 08-15-2023 Glucose [Mass/Vol] 113 mg/dL High 70-100 [facility] Comment on above: ADA recommended refe rence rangeRandom Glucose Reference Range is dependent on time and content of last meal. Glucose of more than 200 mg/dL in a nonstressed, ambulatory subject supports the diagnosis of Diabetes Mellitus. Result Comment: [place] om Glucose Reference Range is dependent on time and content of last meal. Glucose of more than 200 mg/dL in a nonstressed, ambulatory subject supports the diagnosis of Diabetes Mellitus. ADA recommended reference range Performed By: #### E LONNIE, CBC, CMP #### [place] [address] [place] Hematocrit [Volume Fraction] of Blood by Automated countOrdered By: Nimesh Westfall on 08-15-2023 Hematocrit (Bld) [Volume fraction] 37.3 % Normal 34.0-46.4 [facility] Comment on above: Performed By: #### E LONNIE, CBC, CMP #### [facility] [address] Hemoglobin [Mass/volume] in BloodOrdered By: Nimesh Westfall on 08-15-2023 Hemoglobin (Bld) [Mass/Vol] 12.3 g/dL Normal 11.8-15.4 [facility] Comment on above: Performed By: #### E LONNIE, CBC, CMP #### [facility] [address] [place] [address] Ketones Auto test strip (U) [Mass/Vol]Ordered By: Nimesh Westfall on 08-15-2023 Ketones (U) [Mass/Vol] Negative Negative [facility] - UrinalysisOrder ed By: Nimesh Westfall on 08-15-2023 Hyaline casts LM Ql (Urine sed) None seen [LPF] 0-8 [facility] Leukocytes [#/volume] correc cornelia for nucleated erythrocytes in Blood by Automated counOrdered By: Nimesh Westfall on 08-15-2023 WBC corrected for nucl RBC Auto (Bld) [#/Vol] 4.7 10*3/uL 3.8-11.6 [facility] Leukocytes [#/volume] in Blo od by Automated countOrdered By: Nimesh Westfall on 08-15-2023 WBC (Bld) [#/Vol] 4.7 10*3/uL Normal 3.8-11.6 [facility] Comment on above: Performed By: #### E LONNIE, CBC, CMP #### [facility] [address] [place] [address] Lymphocytes [#/volume] in Bl ood by Automated countOrdered By: Nimesh Westfall on 08-15-2023 Lymphocytes (Bld) [#/Vol] 1.7 10*3/uL Normal 1.00-4.8 [facility] Comment on above: Performed By: #### E LONNIE, CBC, CMP #### [facility] [address] Lymphocytes/100 leukocytes i n Blood by Automated countOrdered By: Nimesh Westfall on 08-15-2023 Lymphocytes/100 WBC (Bld) 36.6 % Normal . [facility] Comment on above: Performed By: #### E LONNIE, CBC, CMP #### [facility] [address] [place] [address] MCH [Entitic mass] by Automa cornelia countOrdered By: Nimesh Westfall on 08-15-2023 MCH (RBC) [Entitic mass] 31.2 pg Normal 24.7-34.3 [facility] Comment on above: Performed By: #### E LONNIE, CBC, CMP #### [address] MCHC Auto (RBC) [Mass/Vol]Or dered By: Nimesh Westfall on 08-15-2023 MCHC (RBC) [Mass/Vol] 33.0 g/dL 32.0-35.[address] [facility] MCV [Entitic volume] by Auto mated countOrdered By: Nimesh Westfall on 08-15-2023 MCV (RBC) [Entitic vol] 94.5 fL Normal 80-[address] [facility] Comment on above: Performed By: #### E LONNIE, CBC, CMP #### [address] Monocyte distribution width [Entitic volume] in Blood by AutomatedOrdered By: Nimesh Westfall on 08-15-2023 Monocyte distribution width Auto (Bld) [Entitic vol] 16.42 % 0.00-20.00 [facility] Neutrophils [#/volume] in Bl ood by Automated countOrdered By: Nimesh Westfall on 08-15-2023 Neutrophils (Bld) [#/Vol] 2.1 10*3/uL Normal 1.8-7.7 [facility] Comment on above: Performed By: #### E LONNIE, CBC, CMP #### [facility] [address] [place] [address] Nitrite Test strip Ql (U)Ord ered By: Nimesh Westfall on 08-15-2023 Nitrite Ql (U) Negative Negative [facility] No Panel InformationOrdered By: Nimesh Westfall on 08-15-2023 Estimated GFR (CKD-EPI) 47.997 mL/Min [facility] Creatinine Clearance (Chem 40.94 [facility] Nucleated erythrocytes [Pres ence] in Blood by Automated countOrdered By: Nimesh Westfall on 08-15-2023 Nucleated RBC Auto Ql (Bld) 0.1 /100{WBC} 0-0.5 [facility] Opiates [Presence] in Urine by Screen methodOrdered By: Nimesh Westfall on 08-15-2023 Opiates Screen Ql (U) Negative Negative [facility] Phencyclidine Screen Ql (U)O rdered By: Nimesh Westfall on 08-15-2023 Phencyclidine Ql (U) Negative Negative [facility] Platelet mean volume [Entiti c volume] in Blood by Automated countOrdered By: Nimesh Westfall on 08-15-2023 Platelet mean volume (Bld) [Entitic vol] 8.4 fL Normal 6.3-10.7 [facility] Comment on above: Performed By: #### E LONNIE, CBC, CMP #### [facility] [address] [place] [address] [place] Platelets [#/volume] in Bloo d by Automated countOrdered By: Nimesh Westfall on 08-15-2023 Platelets (Bld) [#/Vol] 221 10*3/uL Normal 150-450 [facility] Comment on above: Performed By: #### E LONNIE, CBC, CMP #### [facility] [address] [place] [address] [place] Potassium [Moles/volume] in Serum or PlasmaOrdered By: Nimesh Westfall on 08-15-2023 Potassium [Moles/Vol] 4.1 mmol/L Normal 3.5-5.[address] [facility] Comment on above: Performed By: #### E LONNIE, CBC, CMP #### [facility] [address] [place] [address] [place] Protein Auto test strip (U) [Mass/Vol]Ordered By: Nimesh Westfall on 08-15-2023 Protein (U) [Mass/Vol] Negative Negative [facility] Protein [Mass/volume] in Ser um or PlasmaOrdered By: Nimesh Westfall on 08-15-2023 Protein [Mass/Vol] 7.0 g/dL Normal 6.4-8.9 [facility] Comment on above: Performed By: #### E HEDY FLEMING, CMP #### [facility] [address] [place] [address] Serum globulin measurement b y calculation (mass/volume)Ordered By: Nimesh Westfall on 08-15-2023 Globulin (S) [Mass/Vol] 2.5 g/dL Normal F [facility] Comment on above: Performed By: #### E HEDY FLEMING, CMP #### [address] Serum or plasma albumin/glob ulin mass ratioOrdered By: Nimesh Westfall on 08-15-2023 Albumin/Globulin [Mass ratio] 1.8 {ratio} Normal [facility] Comment on above: Performed By: #### E HEDY FLEMING, CMP #### [address] Serum or plasma anion gap de terminationOrdered By: Nimesh Westfall on 08-15-2023 Anion gap [Moles/Vol] 11.8 mmol/L Normal 6.0-15.0 [facility] Comment on above: Performed By: #### E HEDY FLEMING, CMP #### [address] Sodium [Moles/volume] in Ser um or PlasmaOrdered By: Nimesh Westfall on 08-15-2023 Sodium [Moles/Vol] 142 mmol/L Normal 136-145 [facility] Comment on above: Performed By: #### E HEDY FLEMING, CMP #### [address] Specific gravity Auto test s trip (U) [Rel density]Ordered By: Nimesh Westfall on 08-15-2023 Specific gravity (U) [Rel density] 1.005 1.001-1.03 0 [facility] Squamous epithelial cells de tection in urine sediment by light microscopyOrdered By: Nimesh Westfall on 08-15-2023 Epithelial cells.squamous LM Ql (Urine sed) None seen [HPF] 0-2 [facility] Urea nitrogen [Mass/volume] in Serum or PlasmaOrdered By: Nimesh Westfall on 08-15-2023 Urea nitrogen [Mass/Vol] 27 mg/dL High 7-25 [facility] Comment on above: Performed By: #### E HEDY FLEMING, CMP #### [facility] [address] [place] [address] Urine bacteria detection by automated methodOrdered By: Nimesh Westfall on 08-15-2023 Bacteria Auto Ql (U) None seen None Seen [facility] Urine clarity by refractomet ry automatedOrdered By: Nimesh Westfall on 08-15-2023 Clarity Refractometry automated (U) Clear Clear [facility] Urine glucose measurement by automated test strip (mass/volume)Ordered By: Nimesh Westfall on 08-15-2023 Glucose Auto test strip (U) [Mass/Vol] Normal mg/dL Normal [facility] Urine hemoglobin detection b y automated test stripOrdered By: Nimesh Westfall on 08-15-2023 Hemoglobin Auto test strip Ql (U) Negative Negative [facility] Urine leukocyte esterase det ection by automated test stripOrdered By: Nimesh Westfall on 08-15-2023 Leukocyte esterase Auto test strip Ql (U) 3+ Negative [facility] Urine pH measurement by auto mated test stripOrdered By: Nimesh Westfall on 08-15-2023 pH (U) 7.0 [pH] Normal 5.0-9.0 [facility] Comment on above: Order Comment: Name Collection Type:: Clean-Voided Midstream Performed By: #### E HEDY FLEMING, CMP #### [facility] [address] [place] [address] Urobilinogen Auto test strip (U) [Mass/Vol]Ordered By: Nimesh Westfall on 08-15-2023 Urobilinogen (U) [Mass/Vol] Normal mg/dL Normal [facility] CNPNon 08-09-2023 DAKSHAN Telephone (HNQ) -------- ROBBIEGAIL MAN ([id number]) 1955 F Date Time Provider Department 08/09/23 YANDEL DANIEL During your visit today, we recorded the following information about you: Nena Rodriguez 08/09/2023 9:45 AM Signed Person Calling: Margaux - RN at [facility] Reason for Call: patient is going to need refills on levothyroxine and calcium carbonate. She was unsure if we would fill that request or her pcp Margaux: [phone] Pharmacy Name and # : [facility] [place] [id number] - [address] [facility] - [phone] [place] [address] [address] [place] [phone] Pt last seen: 06/28/2023 Radha Sewell, RN 08/09/2023 4:29 PM Signed Called [facility] Transferred to [facility]. No answer phone continued ringing no voicemail available. Radha Brice, RN 09/03/2023 8:00 AM Signed No return call for [facility]. Closing encounter. Allergies As of Date: 08/09/2023 [...] Fully Assessed Reason for Visit: Patient Question [3707] Prescriptions as of 09/03/2023 - calcium carbonate [...] mouth every 12 hours as needed. - rlatkv-rwqcvudu-hunqtqv (ENZADYNE) 9,000-112,500- 112,500 unit capsule Take 1 [...] Encounter Status:Closed by RADHA BRICE on 09/03/23 [facility] No Panel Informationon 07-16 Type of [...] taken Amount of lidocaine used: 0.3 cc [facility] CNOVon 06-28-2023 CNOV Office Visit (OTOLMN ) -------- GAIL ALMEIDA ([id number]) 1955 F Date Time Provider Department 06/28/23 3:45 PM YANDEL DANIEL OTOLMO During your visit today, we recorded the [...] by mouth every 12 hours as needed. tvaueo-obgtskob-mkahgfx (ENZADYNE) 9,000-112,500- 112,500 unit capsule Take 1 [...] will continu (more content not included)... [facility]23 [facility] Telephone (HNQ) -------- GAIL ALMEIDA ([id number]) 1955 F Date Time Provider Department 06/24/23 YANDEL DANIEL During your visit today, we recorded the following information about you: Nena Rodriguez 06/24/2023 11:32 AM Signed Person Calling: Susannah - Pharmacist at [facility] Reason for Call: Susannah called in to see if there is alternative product/brand for bssowi-huqszwpp-dpgvoha 9,000-112,500- 112,500 unit cap 1 capsule (ENZADYNE) that Dr. Daniel would be comfortable prescribing. The current one sent to the pharmacy, they do not have Pt Phone #: [phone] Pharmacy Name and # : [place] [address] [place] [address] [facility] [phone] Pt last seen: 06/18/2023 Amy Diaz RN [...] mouth every 12 hours as needed. - eqirnt-dbleikqg-adwkibb (ENZADYNE) 9,000-112,500- 112,500 unit capsule Take 1 [...] Encounter Status:Closed by AMY NG on 06/24/23 [facility] CNDSon 06-22-2023 CNDS HNO ID: [id number] Author: YANDEL DANIEL MD Service: Otolaryngology Author [...] (surgical) FOLLOW-UP APPOINTMENTS ALREADY SCHEDULED WITH A [facility] PROVIDER: Future Appointments Date Time Provider [...] nasal spray folic acid 800 mcg tablet uyjuny-pbhajvkf-kgizbjm 9,000-112,500- 112,500 unit capsule Commonly known as: [...] mcg (200 unit) per tablet Generic drug: vzxhnfj-uncmqjftf-prtgzk n D3 * QUEtiapine XR 400 mg [...] ROXICODONE Ta (more content not included)... Normal [facility] CONSULTon 06-21-2023 CONSULT HNO ID: [id number] Author: MARIAH FOWLER MD Service: Hospital Medicine [...] disorder On Topiramate 25mg daily Quetiapine 12.5/12.5/400 [place] 150mg BID Clonidine 0.1mg po daily Amantadine [...] as needed., Disp: , Rfl: , 06/17/2023 xikihe-cccjxyhq-cuibkny (ENZADYNE) 9,000-112,500- 112,500 unit capsule, Take 1 capsule by mouth daily with food., Disp: , Rfl: (more content not included)... Normal [facility] CYSTATIN Con 06-21-2023 Cystatin C [Mass/Vol] 1.84 mg/L High 0.61-0.95 [facility] Comment on above: Order Comment: Pio espino Type: BLOOD SPECIMENOrdering Facility: [facility] Address: [address] [place] [address] Performed By: #### 2 4362-6, [facility] ####[facility] LABCLIA [id number] [place] [address] [place] CYSTATIN C EGFR 31 mL/min/1.73m??? Low >=60 C [facility] Comment on above: Order Comment: Pio espino Type: BLOOD SPECIMENOrdering Facility: [facility] Address: [address] [place] [address] Result Comment: Leanna mated Glomerular Filtration Rate [...] GFR. Performed By: #### 2 4362-6, [facility] ####[facility] [id number] [place] [address] [place] [facility] Calcium.ionized [Moles/Vol]o n 06-21-2023 Calcium.ionized (Bld) [Mass/Vol] 1.27 mmol/L Normal 1.08-1.30 [facility] Comment on above: Order Comment: Speci men Type: BLOOD SPECIMENOrdering Facility: [facility] Address: [address] [place] [address] Performed By: #### 1 995-0 ####[facility] [id number] [address] [place] Calcium.ionized adjusted to pH 7.4 (Bld) [Moles/Vol] 1.29 mmol/L Normal 1.08-1.30 [facility] Comment on above: Order Comment: Speci men Type: BLOOD SPECIMENOrdering Facility: [facility] Address: [address] [place] [address] Performed By: #### 1 995-0 ####[facility] [id number] [address] [place] NURSING PROGon 06-21-2023 NURSING PROG HNO ID: [id number] Author: AKIKO LONG RN Service: ? Author Type: Registered Nurse Type: Nursing Progress Note Filed: 06/21/2023 12:54 Note Text: Other: [address] Daniel, pt concerned about getting a ride set up to go home today, nursing concerned that ENDO is consulted now, María says pt can go home and follow up as outpatient with Endocrinology, will page Dr Kody Terrell [facility] Renal function 2000 panelon 06-21-2023 Albumin [Mass/Vol] 4.1 g/dL Normal 3.9-4.9 [facility] Comment on above: Order Comment: Speci men Type: BLOOD SPECIMENOrdering Facility: [facility] Address: [address] [place] [address] Performed By: #### 2 4362-6, CYST[facility] ####[facility] LABCLIA [id number] [place] [address] [place] Anion gap [Moles/Vol] 13 mmol/L Normal 9-18 [facility] Comment on above: Order Comment: Speci men Type: BLOOD SPECIMENOrdering Facility: [facility] Address: [address] [place] [address] Performed By: #### 2 4362-6, CYSTC ####[facility] LABCLIA [id number] [place] [address] [place] Calcium [Mass/Vol] 9.6 mg/dL Normal 8.5-10.2 [facility] Comment on above: Order Comment: Speci men Type: BLOOD SPECIMENOrdering Facility: [facility] Address: [address] [place] [address] Performed By: #### 2 4362-6, CYST[facility] ####[facility] LABCLIA [id number] [place] [address] [place] Chloride [Moles/Vol] 104 mmol/L Normal 97-105 [facility] Comment on above: Order Comment: Speci men Type: BLOOD SPECIMENOrdering Facility: [facility] Address: [address] [place] [address] Performed By: #### 2 4362-6, CYSTC ####[facility] LABCLIA [id number] [place] [address] [place] CO2 [Moles/Vol] 25 mmol/L Normal 22-30 [facility] Comment on above: Order Comment: Speci men Type: BLOOD SPECIMENOrdering Facility: [facility] Address: [address] [place] [address] Performed By: #### 2 4362-6, CYSTC ####[facility] LABCLIA [id number] [place] [address] [place] Creatinine [Mass/Vol] 1.20 mg/dL High 0.58-0.96 [facility] Comment on above: Order Comment: Pio espino Type: BLOOD SPECIMENOrdering Facility: [facility] Address: [address] [place] [address] Performed By: #### 2 4362-6, CYSTC ####[facility] LABCLIA [id number] [place] [address] [place] Creatinine and Glomerular filtration rate.predicted panel (S/P/Bld) 50 mL/min/1.73m??? Low >=60 [facility] Comment on above: Order Comment: Pio espino Type: BLOOD SPECIMENOrdering Facility: [facility] Address: [address] [place] [address] Result Comment: Leanna mated Glomerular Filtration Rate [...] GFR. Performed By: #### 2 4362-6, CYSTC ####[facility] LABCLIA [id number] [place] [address] [place] Glucose [Mass/Vol] 161 mg/dL High 74-99 [facility] Comment on above: Order Comment: Pio espino Type: BLOOD SPECIMENOrdering Facility: [facility] Address: [address] [place] [address] Result Comment: The [place] Diabetes Association (ADA) provides guidance for cutoff [...] Standards of Medical Care in Diabetes 2016, [place] [employer]. Diabetes Care. 2016.39(Suppl 1). Performed By: #### 2 4362-6, CYSTC ####[facility] LABCLIA [id number] [place] [address] [place] Phosphate [Mass/Vol] 4.2 mg/dL Normal 2.7-4.8 [facility] Comment on above: Order Comment: Speci men Type: BLOOD SPECIMENOrdering Facility: [facility] Address: [address] [place] [address] Performed By: #### 2 4362-6, CYSTC ####[facility] LABCLIA [id number] [place] [address] [place] Potassium [Moles/Vol] 4.0 mmol/L Normal 3.7-5.1 [facility] Comment on above: Order Comment: Speci men Type: BLOOD SPECIMENOrdering Facility: [facility] Address: [address] [place] [address] Performed By: #### 2 4362-6, CYSTC ####[facility] LABCLIA [id number] [place] [address] [place] Sodium [Moles/Vol] 142 mmol/L Normal 136-144 [facility] Comment on above: Order Comment: Speci men Type: BLOOD SPECIMENOrdering Facility: [facility] Address: [address] [place] [address] Performed By: #### 2 4362-6, CYSTC ####[facility] LABCLIA [id number] [place] [id number] [place] Urea nitrogen [Mass/Vol] 26 mg/dL High 7-21 [facility] Comment on above: Order Comment: Speci men Type: BLOOD SPECIMENOrdering Facility: [facility] Address: [address] [place] [address] Performed By: #### 2 4362-6, CYSTC ####[facility] LABCLIA [id number] [place] [address] [place] Urinalysis complete panel (U )on 06-21-2023 Bacteria LM.HPF (Urine sed) [#/Area] Negative Normal Negative [facility] Comment on above: Order Comment: Speci men Type: URINE SPECIMENOrdering Facility: [facility] Address: [address] [place] [address] Performed By: #### 2 4356-8 ####[facility] LABCLIA [id number] [place] [address] [place] Bilirubin Ql (U) Negative Normal Negative [facility] Comment on above: Order Comment: Speci men Type: URINE SPECIMENOrdering Facility: [facility] Address: [address] [place] [address] Performed By: #### 2 4356-8 ####[facility] LABCLIA [id number] [place] [address] [place] Clarity (Unsp spec) Clear Normal Clear [facility] Comment on above: Order Comment: Speci men Type: URINE SPECIMENOrdering Facility: [facility] Address: [address] [place] [address] Performed By: #### 2 4356-8 ####[facility] LABCLIA [id number] [place] [address] [place] Color (U) Yellow Normal Yellow [facility] Comment on above: Order Comment: Speci men Type: URINE SPECIMENOrdering Facility: [facility] Address: [address] [place] [address] Performed By: #### 2 4356-8 ####[facility] LABCLIA [id number] [place] [address] [place] Epithelial cells LM.HPF (Urine sed) [#/Area] Few Normal [facility] Comment on above: Order Comment: Speci men Type: URINE SPECIMENOrdering Facility: [facility] Address: [address] [place] [address] Performed By: #### 2 4356-8 ####[facility] LABCLIA [id number] [place] [address] [place] Glucose Test strip (U) [Mass/Vol] Negative Normal Negative [facility] Comment on above: Order Comment: Speci men Type: URINE SPECIMENOrdering Facility: [facility] Address: [address] [place] [address] Performed By: #### 2 4356-8 ####[facility] LABCLIA [id number] [place] [address] [place] Hemoglobin Ql (U) Negative Normal Negative [facility] Comment on above: Order Comment: Speci men Type: URINE SPECIMENOrdering Facility: [facility] Address: [address] [place] [address] Performed By: #### 2 4356-8 ####[facility] LABCLIA [id number] [place] [address] [place] Hyaline casts (Urine sed) [#/Area] 0 /[LPF] Normal 0 /LPF [facility] Comment on above: Order Comment: Speci men Type: URINE SPECIMENOrdering Facility: [facility] Address: [address] [place] [address] Performed By: #### 2 4356-8 ####[facility] LABCLIA [id number] [place] [address] [place] Ketones Ql (U) Negative Normal Negative [facility] Comment on above: Order Comment: Speci men Type: URINE SPECIMENOrdering Facility: [facility] Address: [address] [place] [address] Performed By: #### 2 4356-8 ####[facility] LABCLIA [id number] [address] [place] Leukocyte esterase Test strip Ql (U) 1+ Abnormal Negative [facility] Comment on above: Order Comment: Speci men Type: URINE SPECIMENOrdering Facility: [facility] Address: [address] [place] [address] Performed By: #### 2 4356-8 ####[facility] LABCLIA [id number] [place] [address] [place] Nitrite Ql (U) Negative Normal Negative [facility] Comment on above: Order Comment: Speci men Type: URINE SPECIMENOrdering Facility: [facility] Address: [address] [place] [address] Performed By: #### 2 4356-8 ####[facility] LABCLIA [id number] [place] [address] [place] pH (U) 7.0 [pH] Normal <8.5 [facility] Comment on above: Order Comment: Speci men Type: URINE SPECIMENOrdering Facility: [facility] Address: [address] [place] [address] Performed By: #### 2 4356-8 ####[facility] LABCLIA [id number] [place] [address] [place] Protein (U) [Mass/Vol] Negative Normal Negative [facility] Comment on above: Order Comment: Speci men Type: URINE SPECIMENOrdering Facility: [facility] Address: [address] [place] [address] Performed By: #### 2 4356-8 ####[facility] LABIA [id number] [place] [address] [place] RBC LM.HPF (Urine sed) [#/Area] 0-2 /HPF Normal 0-2 /HPF [facility] Comment on above: Order Comment: Speci men Type: URINE SPECIMENOrdering Facility: [facility] Address: [address] [place] [address] Performed By: #### 2 4356-8 ####[facility] LABIA [id number] [place] [address] [place] Specific gravity (U) [Rel density] 1.009 Normal 1.005-1.03 0 [facility] Comment on above: Order Comment: Speci men Type: URINE SPECIMENOrdering Facility: [facility] Address: [address] [place] [address] Performed By: #### 2 4356-8 ####[facility] LABIA [id number] [place] [address] [place] Urobilinogen Ql (U) 0.2 EU/dL Normal 0.2-1.0 EU/dL [facility] Comment on above: Order Comment: Speci men Type: URINE SPECIMENOrdering Facility: [facility] Address: [address] [place] [address] Performed By: #### 2 4356-8 ####[facility] [id number] [place] [address] [place] WBC LM.HPF (Urine sed) [#/Area] 0-5 /HPF Normal 0-5 /HPF [facility] Comment on above: Order Comment: Speci men Type: URINE SPECIMENOrdering Facility: [facility] Address: [address] [place] [address] Performed By: #### 2 4356-8 ####[facility] [id number] [place] [address] [place] Basic metabolic 2000 panelon 06-20-2023 Anion gap [Moles/Vol] 10 mmol/L Normal 9-18 [facility] Comment on above: Order Comment: Speci men Type: BLOOD SPECIMENOrdering Facility: [facility] Address: [address] [place] [address] Performed By: #### 2 777-1, 2731-8, 21410-6, 07259-1 ####[facility] LABIA [id number] [address] [place] [address] [place] Calcium [Mass/Vol] 10.8 mg/dL High 8.5-10.2 [facility] Comment on above: Order Comment: Speci men Type: BLOOD SPECIMENOrdering Facility: [facility] Address: [address] [place] [address] Performed By: #### 2 777-1, 273-8, , 93807-8 ####[facility] LABCLIA [id number] [place] [address] [place] Chloride [Moles/Vol] 104 mmol/L Normal 97-105 [facility] Comment on above: Order Comment: Speci men Type: BLOOD SPECIMENOrdering Facility: [facility] Address: [address] [place] [address] Performed By: #### 2 777-1, 273-8, , 76966-1 ####[facility] LABCLIA [id number] [place] [address] [place] CO2 [Moles/Vol] 26 mmol/L Normal 22-30 [facility] Comment on above: Order Comment: Speci men Type: BLOOD SPECIMENOrdering Facility: [facility] Address: [address] [place] [address] Performed By: #### 2 777-1, 273-8, , 47236-6 ####[facility] LABCLIA [id number] [place] [address] [place] Creatinine [Mass/Vol] 1.27 mg/dL High 0.58-0.96 [facility] Comment on above: Order Comment: Speci men Type: BLOOD SPECIMENOrdering Facility: [facility] Address: [address] [place] [address] Performed By: #### 2 777-1, 273-8, , 28922-7 ####[facility] LABCLIA [id number] [place] [address] [place] Creatinine and Glomerular filtration rate.predicted panel (S/P/Bld) 47 mL/min/1.73m??? Low >=60 [facility] Comment on above: Order Comment: Pio espino Type: BLOOD SPECIMENOrdering Facility: [facility] Address: [address] [place] [address] Result Comment: Leanna mated Glomerular Filtration Rate [...] GFR. Performed By: #### 2 777-1, 2730-8, 52794-0, 25401-9 ####[facility] LABCLIA [id number] [place] [address] [place] Glucose [Mass/Vol] 113 mg/dL High 74-99 [facility] Comment on above: Order Comment: Pio espino Type: BLOOD SPECIMENOrdering Facility: [facility] Address: [address] [place] [address] Result Comment: The [place] Diabetes [employer] (ADA) provides guidance for cutoff [...] Standards of Medical Care in Diabetes 2016, [place] [employer]. Diabetes Care. 2016.39(Suppl 1). Performed By: #### 2 777-1, 2731-8, 04314-3, 91636-8 ####[facility] LABCLIA [id number] [place] [id number] [address] [place] Potassium [Moles/Vol] 4.0 mmol/L Normal 3.7-5.1 [facility] Comment on above: Order Comment: Speci men Type: BLOOD SPECIMENOrdering Facility: [facility] Address: [address] [place] [address] Performed By: #### 2 777-1, 2731-8, 60689-8, 35068-5 ####[facility] LABCLIA [id number] [place] [address] [place] Sodium [Moles/Vol] 140 mmol/L Normal 136-144 [facility] Comment on above: Order Comment: Speci men Type: BLOOD SPECIMENOrdering Facility: [facility] Address: [address] [place] [address] Performed By: #### 2 777-1, 273-8, 52064-8, 52225-8 ####[facility] LABCLIA [id number] [place] [address] [place] Urea nitrogen [Mass/Vol] 26 mg/dL High 7-21 [facility] Comment on above: Order Comment: Speci men Type: BLOOD SPECIMENOrdering Facility: [facility] Address: [address] [place] [address] Performed By: #### 2 777-1, 273-8, 59710-8, 54774-2 ####[facility] LABCLIA [id number] [place] [address] [place] CBC panel Auto (Bld)on 06-20 Erythrocyte distribution width (RBC) [Ratio] 13.3 % Normal 11.5-15.0 [facility] Comment on above: Order Comment: Speci men Type: BLOOD SPECIMENOrdering Facility: [facility] Address: [address] [place] [address] Performed By: #### 2 731-8, 22260-0 ####[facility] LABCLIA [id number] [place] [address] [place] Hematocrit (Bld) [Volume fraction] 42.6 % Normal 36.0-46.0 [facility] Comment on above: Order Comment: Speci men Type: BLOOD SPECIMENOrdering Facility: [facility] Address: [address] [place] [address] Performed By: #### 2 731-8, 49757-0 ####[facility] LABCLIA [id number] [place] [address] [place] Hemoglobin (Bld) [Mass/Vol] 14.0 g/dL Normal 11.5-15.5 [facility] Comment on above: Order Comment: Speci men Type: BLOOD SPECIMENOrdering Facility: [facility] Address: [address] [place] [address] Performed By: #### 2 731-8, 32150-6 ####[facility] LABCLIA [id number] [place] [address] [place] MCH (RBC) [Entitic mass] 31.7 pg Normal 26.0-34.0 [facility] Comment on above: Order Comment: Speci men Type: BLOOD SPECIMENOrdering Facility: [facility] Address: [address] [place] [address] Performed By: #### 2 731-8, 99514-0 ####[facility] LABIA [id number] [place] [address] [place] MCHC (RBC) [Mass/Vol] 32.9 g/dL Normal 30.5-36.0 [facility] Comment on above: Order Comment: Speci men Type: BLOOD SPECIMENOrdering Facility: [facility] Address: [address] [place] [address] Performed By: #### 2 731-8, 69124-7 ####[facility] LABCLIA [id number] [place] [address] [place] MCV (RBC) [Entitic vol] 96.4 fL Normal 80.0-100.0 C [facility] Comment on above: Order Comment: Speci men Type: BLOOD SPECIMENOrdering Facility: [facility] Address: [address] [place] [address] Performed By: #### 2 731-8, 25861-7 ####[facility] LABCLIA [id number] [place] [address] [place] Nucleated RBC (Bld) [#/Vol] 10*3/uL Normal <0.01 [facility] Comment on above: Order Comment: Speci men Type: BLOOD SPECIMENOrdering Facility: [facility] Address: [address] [place] [address] Performed By: #### 2 731-8, 52458-4 ####[facility] LABCLIA [id number] [place] [address] [place] Platelet mean volume (Bld) [Entitic vol] 10.1 fL Normal 9.0-12.7 [facility] Comment on above: Order Comment: Speci men Type: BLOOD SPECIMENOrdering Facility: [facility] Address: [address] [place] [address] Performed By: #### 2 731-8, 43036-4 ####[facility] LABCLIA [id number] [place] [address] [place] Platelets (Bld) [#/Vol] 201 10*3/uL Normal 150-400 [facility] Comment on above: Order Comment: Speci men Type: BLOOD SPECIMENOrdering Facility: [facility] Address: [address] [place] [address] Performed By: #### 2 731-8, 33071-7 ####[facility] LABCLIA [id number] [place] [address] [place] RBC (Bld) [#/Vol] 4.42 10*6/uL Normal 3.90-5.20 [facility] Comment on above: Order Comment: Speci men Type: BLOOD SPECIMENOrdering Facility: [facility] Address: [address] [place] [address] Performed By: #### 2 731-8, 10177-5 ####[facility] LABCLIA [id number] [place] [address] [place] WBC (Bld) [#/Vol] 7.26 10*3/uL Normal 3.70-11.00 [facility] Comment on above: Order Comment: Speci men Type: BLOOD SPECIMENOrdering Facility: [facility] Address: [address] [place] [address] Performed By: #### 2 731-8, 45294-7 ####[facility] LABCLIA [id number] [place] [address] [place] Calcium.ionized [Moles/Vol]o n 06-20-2023 Calcium.ionized (Bld) [Mass/Vol] 1.37 mmol/L High 1.08-1.30 [facility] Comment on above: Order Comment: Speci men Type: BLOOD SPECIMENOrdering Facility: [facility] Address: [address] [place] [address] Performed By: #### 1 995-0 ####[facility] LABIA [id number] [place] [address] [place] Calcium.ionized adjusted to pH 7.4 (Bld) [Moles/Vol] 1.38 mmol/L High 1.08-1.30 [facility] Comment on above: Order Comment: Speci men Type: BLOOD SPECIMENOrdering Facility: [facility] Address: [address] [place] [address] Performed By: #### 1 995-0 ####[facility] LABCLIA [id number] [place] [address] [place] Calcium.ionized (Bld) [Mass/Vol] 1.38 mmol/L High 1.08-1.30 [facility] Comment on above: Order Comment: Speci men Type: BLOOD SPECIMENOrdering Facility: [facility] Address: [address] [place] [address] Performed By: #### 1 995-0 ####[facility] LABIA [id number] [place] [address] [place] Calcium.ionized adjusted to pH 7.4 (Bld) [Moles/Vol] 1.40 mmol/L High 1.08-1.30 [facility] Comment on above: Order Comment: Speci men Type: BLOOD SPECIMENOrdering Facility: [facility] Address: [address] [place] [address] Performed By: #### 1 995-0 ####[facility] LABIA [id number] [place] [address] [place] Magnesium SerPl-ncon 06-20 Magnesium [Mass/Vol] 1.8 mg/dL Normal 1.7-2.3 [facility] Comment on above: Order Comment: Speci men Type: BLOOD SPECIMENOrdering Facility: [facility] Address: [address] [place] [address] Performed By: #### 2 777-1, 2731-8, 09643-8, 23729-9 ####[facility] [id number] [place] [address] [place] PTH-Intact SerPl-mCncon 06-03 Parathyrin.intact [Mass/Vol] pg/mL Low 15-65 [facility] Comment on above: Order Comment: Speci men Type: BLOOD SPECIMENOrdering Facility: [facility] Address: [address] [place] [address] Performed By: #### 2 731-8, 42956-9 ####[facility] LABIA [id number] [place] [address] [place] Result Comment: Resu lt rechecked. Performed By: #### 2 777-1, 2731-8, 27966-3, 43501-7 ####[facility] LABIA [id number] [place] [id number] [place] Phosphate SerPl-mCncon 06-20 Phosphate [Mass/Vol] 4.9 mg/dL High 2.7-4.8 [facility] Comment on above: Order Comment: Speci men Type: BLOOD SPECIMENOrdering Facility: [facility] Address: [address] [place] [address] Performed By: #### 2 777-1, 2731-8, 26640-7, 58403-9 ####[facility] LABIA [id number] [place] [id number] [place] CNPDayanara 06-19-2023 CNPN Telephone (HNQ) -------- GAIL ALMEIDA ([id number]) 1955 F Date Time Provider Department 06/19/23 YANDEL DANIEL During your visit today, we recorded the following information about you: Nena Rodriguez 06/19/2023 9:56 AM Signed Person Calling: Margaux - RN at [facility] Reason for Call: Margaux called wanting to check in on how the patient is doing after surgery. She also wanted to know if the patient was still planning on being discharged today Margaux: [phone] Pt last seen: 06/18/23 Nena Rodriguez Allergies [...] mouth every 12 hours as needed. - xjwhsw-rltvcgez-ysgqlzf (ENZADYNE) 9,000-112,500- 112,500 unit capsule Take 1 [...] (hypertension) [I10] (more content not included)... Normal [facility] Calcium.ionized [Moles/Vol]o n 06-19-2023 Calcium.ionized (Bld) [Mass/Vol] 1.43 mmol/L High 1.08-1.30 [facility] Comment on above: Order Comment: Speci men Type: BLOOD SPECIMENOrdering Facility: [facility] Address: [address] [place] [address] Performed By: #### 1 995-0 ####[facility] [id number] [place] [address] [place] Calcium.ionized adjusted to pH 7.4 (Bld) [Moles/Vol] 1.43 mmol/L High 1.08-1.30 [facility] Comment on above: Order Comment: Speci men Type: BLOOD SPECIMENOrdering Facility: [facility] Address: [address] [place] [address] Performed By: #### 1 995-0 ####[facility] [id number] [place] [address] [place] Calcium.ionized (Bld) [Mass/Vol] 1.37 mmol/L High 1.08-1.30 [facility] Comment on above: Order Comment: Speci men Type: BLOOD SPECIMENOrdering Facility: [facility] Address: [address] [place] [address] Performed By: #### 1 995-0 ####[facility] LABIA [id number] [place] [address] [place] Calcium.ionized adjusted to pH 7.4 (Bld) [Moles/Vol] 1.35 mmol/L High 1.08-1.30 [facility] Comment on above: Order Comment: Speci men Type: BLOOD SPECIMENOrdering Facility: [facility] Address: [address] [place] [address] Performed By: #### 1 995-0 ####[facility] [id number] [place] [address] [place] Calcium.ionized (Bld) [Mass/Vol] 1.28 mmol/L Normal 1.08-1.30 [facility] Comment on above: Order Comment: Speci men Type: BLOOD SPECIMENOrdering Facility: [facility] Address: [address] [place] [address] Performed By: #### 1 995-0 ####[facility] [id number] [place] [address] [place] Calcium.ionized adjusted to pH 7.4 (Bld) [Moles/Vol] 1.27 mmol/L Normal 1.08-1.30 [facility] Comment on above: Order Comment: Speci men Type: BLOOD SPECIMENOrdering Facility: [facility] Address: [address] [place] [address] Performed By: #### 1 995-0 ####[facility] LABIA [id number] [place] [address] [place] Calcium.ionized (Bld) [Mass/Vol] 1.27 mmol/L Normal 1.08-1.30 [facility] Comment on above: Order Comment: Speci men Type: BLOOD SPECIMENOrdering Facility: [facility] Address: [address] [place] [address] Performed By: #### 1 995-0 ####[facility] LABCLIA [id number] [place] [address] [place] Calcium.ionized adjusted to pH 7.4 (Bld) [Moles/Vol] 1.24 mmol/L Normal 1.08-1.30 [facility] Comment on above: Order Comment: Speci men Type: BLOOD SPECIMENOrdering Facility: [facility] Address: [address] [place] [address] Performed By: #### 1 995-0 ####[facility] LABCLIA [id number] [place] [address] [place] PTH-Intact SerPl-ncon 06-03 Parathyrin.intact [Mass/Vol] 6 pg/mL Low 15-65 [facility] Comment on above: Order Comment: Speci men Type: BLOOD SPECIMEN [facility] Address: [address] [place] [address] Performed By: #### 2 731-8 #### [facility] CLIA [id number] [address] [place] [address] [place] ANES POSTPROC EVALon 024 ANES POSTPROC EVAL HNO ID: [id number] Author: LU CAREY MD Service: ? Author Type: Anesthesiologist Type: Anesthesia Postprocedure Evaluation Filed: 06/18/2023 18:05 Note Text: POST ANESTHESIA EVALUATION NOTE : 1955 Procedure Summary Date: 06/18/23 Room / Location: [address] Anesthesia Start: 1159 Anesthesia Stop: 1555 [...] June 18, 2023 TIME: 6:05 PM CSN: [id number] Normal [facility] ANES PRE-OPon 06-18-2023 ANES PRE-OP HNO ID: [id number] Author: JANETH VARGAS DO Service: ? Author Type: Physician Type: Anesthesia Preprocedure Evaluation Filed: 06/18/2023 12:51 Note Text: ANESTHESIOLOGY DAY OF SURGERY NOTE : 1955 Procedure Information Date/Time: 06/18/23 1045 Procedure: THYROIDECTOMY TOTAL (Thyroid) Location: [facility] [place] Surgeons: Yandel Daniel MD Estimated body mass [...] June 18, 2023 TIME: 9:48 AM CSN: [id number] Normal [facility] BRIEF OP NOTon 06-18-2023 BRIEF OP NOT HNO ID: [id number] Author: DAKOTA SMITH MD Service: Otolaryngology Author Type: Resident Type: Brief Op Note Filed: 06/18/2023 15:30 Note Text: BRIEF OPERATIVE NOTE Otorhinolaryngology LOG ID: [id number] Surgery / Procedure Date: 06/18/2023 Incision / Procedure Start Time: 12:35 PM Incision Close / Procedure End Time: 3:17 PM Procedure(s): Procedure(s) and Anesthesia Type: * THYROIDECTOMY TOTAL - General Total thyroidectomy with removal of substernal goiter Parathyroid autoimplantation into SCM x2 CROW-AF parathyroid detection Surgeon(s) / Proceduralist(s) and Tapping Machine Operator(s): Surgeon(s) and Role: * Yandel Daniel [...] 3:29 PM Click to page Please page [phone] after 5pm and on weekends Normal [facility] CONSULT PROGon 06-18-2023 CONSULT PROG HNO ID: [id number] Author: LYDIA MACK RPh Service: Pharmacy Author [...] DAILY Question: Pharmacist may modify dose per [facility] dose optimization consult agreement Answer: Yes 06/18/23 1911 06/18/23 1600 ceFAZolin iv piggyback 2 g in D5W (iso-osmotic) 100 mL (ANCEF) EVERY 8 HOURS Question Answer Comment Antimicrobial indication Prophylaxis Pharmacist may modify dose per [facility] dose optimization consult agreement Yes 06/18/23 1555 For medications which dose is dependent on renal function, a pharmacist will monitor renal function daily and adjust doses accordingly. Any dose adjustments needed based on changes in indication will require an LIP to enter a new order. Managing Pharmacist: Lydia Mack RPh, available at: Ext [phone] If you have any questions, please contact Pharmacy at Ext [phone]. CrCl cannot be calculated (Patient's most recent [...] Temp: 36.5 ?C (97.7 ?F) Lydia Mack [facility] June 18, 2023 7:31 PM Normal [facility] Calcium.ionized [Moles/Vol]o n 06-18-2023 Calcium.ionized (Bld) [Mass/Vol] 1.40 mmol/L High 1.08-1.30 [facility] Comment on above: Order Comment: Speci men Type: BLOOD SPECIMEN [facility] Address: [address] [place] [address] Performed By: #### 1 995-0 #### [facility] CLIA [id number] [address] [place] [address] [place] Calcium.ionized adjusted to pH 7.4 (Bld) [Moles/Vol] 1.30 mmol/L Normal 1.08-1.30 [facility] Comment on above: Order Comment: Speci men Type: BLOOD SPECIMEN [facility] Address: [address] [place] [address] Performed By: #### 1 995-0 #### [facility] CLIA [id number] [address] [place] [address] [place] NURSING PROGon 06-18-2023 NURSING PROG HNO ID: [id number] Author: ALETHEA OLIVEROS RN Service: Nursing Author Type: Registered Nurse Type: Nursing Progress Note Filed: 06/18/2023 19:22 Note Text: Pt takes [place] at nite. Rn paged BEENA production supervisor to make aware. Awaiting orders. Continue to monitor Normal [facility] NURSING PROG HNO ID: [id number] Author: ALETHEA OLIVEROS RN Service: Nursing Author [...] This note was completed by: Alethea Terrell [facility] OPERATIVE NOon 06-18-2023 OPERATIVE NO HNO ID: [id number] Author: YANDEL DANIEL MD Service: Otolaryngology Author Type: Physician Type: Operative Report Filed: 06/19/2023 14:16 Note Text: The [facility] [place] [phone] or [phone] [id number] C O N F I D E N T I A L I N F O R M A T I O N -------- OPERATIVE REPORT Patient Name: Gail Almeida Date of : 1955 Log ID: [id number] Date: 06/18/2023 Surgeon:Yandel Daniel MD Resident Surgeon(s): [...] permanent pathology. (more content not included)... Normal [facility] SURGICAL PATHOLOGYon CASE REPORT Normal [facility] Comment on above: Order Comment: Specruy espino Type: BLOOD SPECIMEN [facility]ing Facility[facility] Address: [address] [place] [address] Result Comment: Surg [facility] Pathology Report Case: [id number] Authorizing Provider: Yandel Daniel MD Collected: 06/18/2023 01:50 PM Ordering Location: Admitting Received: 06/18/2023 02:57 PM Pathologist: Iliana Marti MD Specimens: A) - THYROID LOBE LEFT, Left substernal goiter B) - THYROID LOBE RIGHT, Right substernal goiter Performed By: #### 2 731-8 #### [facility] CLIA [id number] 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 Normal [facility] Comment on above: Order Comment: Speci men Type: BLOOD SPECIMEN Ordering Facility: [facility] Address: [address] [place] [address] Performed By: #### 2 731-8 #### [facility] CLIA [id number] [address] OF [facility] FINAL DIAGNOSIS Normal [facility] Comment on above: Order Comment: Speci men Type: BLOOD SPECIMEN Ordering Facility: [facility] Address: [address] [place] [address] Result Comment: A,B. 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 - No parathyroid glands or lymph nodes were identified. - Negative for malignancy. Performed By: #### 2 731-8 #### [facility] CLIA [id number] [address] [place] [address] [place] FINAL PERFORMING LAB Normal [facility] Comment on above: Order Comment: Speci men Type: BLOOD SPECIMEN Ordering Facility: [facility] Address: [address] [place] [address] Result Comment: Diag nostic interpretation performed at [facility], [address] [place] [address] CLIA# [id number] County Commissioner: Adonis Dukes M.D. Performed By: #### 2 731-8 #### [facility] CLIA [id number] [facility] [place] [address] [place] GROSS DESCRIPTION Normal [facility] Comment on above: Order Comment: Speci men Type: BLOOD SPECIMEN Ordering Facility[facility] Address: [address] [place] [address] Result Comment: A. T HYROID LOBE LEFT Labeled: Thyroid lobe left Specimen received: Formalin Specimen type: Total thyroidectomy without attached skeletal muscle, lymph nodes, AND / OR large vessels Oriented: No Weight: 154.35 g Size: 11.5 x 8.2 x 4.1 cm Left lobe: 8.2 7.2 x 4.1 cm Isthmus: 5.5 x 2.5 x 1.9 cm Ink code: Blue- External surface [place] - Isthmus Sectioning: The specimen is serially sectioned from superior to inferior. Number of discrete nodules: 0 Background thyroid parenchyma: Multicystic, fleshy containing hemorrhagic fluid with areas of calcification. Attached skeletal muscle: Not identified Attached lymph nodes: Not identified Attached parathyroid: Not identified Gross photograph: Yes Cassette Code: A1-A2: Management Accountant sections from left thyroid lobe A3: Management Accountant section of the isthmus Gross examination performed at [facility], [address] [place] [address] CLIA # [id number] 06/19/23 1:55 PM B. THYROID LOBE RIGHT Labeled: Thyroid lobe Right Specimen received: Formalin Specimen type: Total thyroidectomy without attached skeletal muscle, lymph nodes, AND / OR large vessels Oriented: No Weight: 75.2 g Size: Right lobe: 9.5 x 4.5 x 3.1 cm Ink code: Black- External surface [place] - Isthmus resection margin Sectioning: The specimen is serially sectioned from superior to inferior. Number of discrete nodules: 0 Background thyroid parenchyma: Multicystic, fleshy containing hemorrhagic fluid. Attached skeletal muscle: Not identified Attached lymph nodes: Not identified Attached parathyroid: Not identified Gross photograph: Yes Cassette Code: B1-B2: Management Accountant sections of the right thyroid lobe Gross examination performed at [facility], [address] [place] [address] CLIA # [id number] 06/19/23 1:55 PM Performed By: #### 2 731-8 #### [facility] CLIA [id number] [address] [place] [address] [place] [address] [place] Basic metabolic 2000 panelon 05-30-2023 Anion gap [Moles/Vol] 10 mmol/L Normal 9-18 [facility] Comment on above: Order Comment: Speci men Type: BLOOD SPECIMEN Ordering Facility: [facility] Address: [address] [place] [address] Performed By: #### 2 4321-2 #### [facility] CLIA [id number] [address] [place] [address] [place] Calcium [Mass/Vol] 8.9 mg/dL Normal 8.5-10.2 [facility] Comment on above: Order Comment: Speci men Type: BLOOD SPECIMEN Ordering Facility: [facility] Address: [address] [place] [address] Performed By: #### 2 4321-2 #### [facility] [place] [id number] [address] [place] [address] [place] Chloride [Moles/Vol] 105 mmol/L Normal 97-105 [facility] Comment on above: Order Comment: Speci men Type: BLOOD SPECIMEN [facility]ing Facility[facility] Address: [address] [place] [address] Performed By: #### 2 4321-2 #### [facility] IA [id number] [address] [place] [address] [place] CO2 [Moles/Vol] 21 mmol/L Low 22-30 [facility] Comment on above: Order Comment: Speci men Type: BLOOD SPECIMEN Ordering Facility[facility] Address: [address] [place] [address] Performed By: #### 2 4321-2 #### [facility] CLIA [id number] [address] [place] [address] [place] Creatinine [Mass/Vol] 1.03 mg/dL High 0.58-0.96 [facility] Comment on above: Order Comment: Speci men Type: BLOOD SPECIMEN Ordering Facility[facility] Address: [address] [place] [address] Performed By: #### 2 4321-2 #### [facility] IA [id number] [address] [place] [address] [place] Creatinine and Glomerular filtration rate.predicted panel (S/P/Bld) 60 mL/min/1.73m??? Normal >=60 [facility] Comment on above: Order Comment: Pio espino Type: BLOOD SPECIMEN Ordering Facility: [facility] Address: [address] [place] [address] Result Comment: Leanna mated Glomerular Filtration Rate [...] GFR. Performed By: #### 2 4321-2 #### [facility] CLIA [id number] [address] [place] [place] [address] [place] Glucose [Mass/Vol] 96 mg/dL Normal 74-99 [facility] Comment on above: Order Comment: Pio espino Type: BLOOD SPECIMEN Ordering Facility: [facility] Address: [address] [place] [address] Result Comment: The [place] Diabetes Association (ADA) provides guidance for cutoff [...] Standards of Medical Care in Diabetes 2016, [place] Diabetes Association. Diabetes Care. 2016.39(Suppl 1). Performed By: #### 2 4321-2 #### [facility] CLIA [id number] [address] [place] [place] [address] [place] Potassium [Moles/Vol] 4.6 mmol/L Normal 3.7-5.1 [facility] Comment on above: Order Comment: Pio espino Type: BLOOD SPECIMEN Ordering [facility] Address: [address] [place] [address] Performed By: #### 2 4321-2 #### [facility] CLIA [id number] [address] [place] [address] [place] Sodium [Moles/Vol] 136 mmol/L Normal 136-144 [facility] Comment on above: Order Comment: Speci men Type: BLOOD SPECIMEN Ordering [facility] Address: [address] [place] [address] Performed By: #### 2 4321-2 #### [facility] CLIA [id number] [address] [place] [address] [place] Urea nitrogen [Mass/Vol] 28 mg/dL High 12-21 [facility] Comment on above: Order Comment: Speci men Type: BLOOD SPECIMEN Ordering Facility[facility] Address: [address] [place] [address] Performed By: #### 2 4321-2 #### [facility] IA [id number] [address] [place] [address] [place] CBC panel Auto (Bld)on 05-30 Erythrocyte distribution width (RBC) [Ratio] 13.0 % Normal 11.5-15.0 [facility] Comment on above: Order Comment: Speci men Type: BLOOD SPECIMEN Ordering Facility: [facility] Address: [address] [place] [address] Performed By: #### 5 8410-2 #### [facility] CLIA [id number] [address] [place] [address] [place] Hematocrit (Bld) [Volume fraction] 38.6 % Normal 36.0-46.0 [facility] Comment on above: Order Comment: Speci men Type: BLOOD SPECIMEN Ordering [facility] Address: [address] [place] [address] Performed By: #### 5 8410-2 #### [facility] IA [id number] [address] [place] [address] [place] Hemoglobin (Bld) [Mass/Vol] 12.2 g/dL Normal 11.5-15.5 [facility] Comment on above: Order Comment: Speci men Type: BLOOD SPECIMEN Ordering Facility: [facility] Address: [address] [place] [address] Performed By: #### 5 8410-2 #### [facility] IA [id number] [address] [place] MCH (RBC) [Entitic mass] 31.3 pg Normal 26.0-34.0 [facility] Comment on above: Order Comment: Speci men Type: BLOOD SPECIMEN Ordering Facility[facility] Address: [address] [place] [address] Performed By: #### 5 8410-2 #### [facility] IA [id number] [place] [address] [place] MCHC (RBC) [Mass/Vol] 31.6 g/dL Normal 30.5-36.0 [facility] Comment on above: Order Comment: Speci men Type: BLOOD SPECIMEN Ordering [facility] Address: [address] [place] [address] Performed By: #### 5 8410-2 #### [facility] IA [id number] [place] [address] [place] MCV (RBC) [Entitic vol] 99.0 fL Normal 80.0-100.0 [facility] Comment on above: Order Comment: Speci men Type: BLOOD SPECIMEN Ordering Facility: [facility] Address: [address] [place] [address] Performed By: #### 5 8410-2 #### [facility] IA [id number] [address] [place] Nucleated RBC (Bld) [#/Vol] 10*3/uL Normal <0.01 [facility] Comment on above: Order Comment: Speci men Type: BLOOD SPECIMEN Ordering Facility[facility] Address: [address] [place] [address] Performed By: #### 5 8410-2 #### [facility] IA [id number] [address] [place] [address] [place] Platelet mean volume (Bld) [Entitic vol] 9.9 fL Normal 9.0-12.7 [facility] Comment on above: Order Comment: Speci men Type: BLOOD SPECIMEN Ordering Facility[facility] Address: [address] [place] [address] Performed By: #### 5 8410-2 #### [facility] IA [id number] [address] [place] [address] [facility] [place] Platelets (Bld) [#/Vol] 254 10*3/uL Normal 150-400 [facility] Comment on above: Order Comment: Speci men Type: BLOOD SPECIMEN Ordering [facility] Address: [address] [place] [address] Performed By: #### 5 8410-2 #### [facility] [id number] [address] [place] [address] [place] RBC (Bld) [#/Vol] 3.90 10*6/uL Normal 3.90-5.20 [facility] Comment on above: Order Comment: Speci men Type: BLOOD SPECIMEN Ordering [facility] Address: [address] [place] [address] Performed By: #### 5 8410-2 #### [facility] [id number] [address] [place] [id number] [place] WBC (Bld) [#/Vol] 5.78 10*3/uL Normal 3.70-11.00 [facility] Comment on above: Order Comment: Christianoi men Type: BLOOD SPECIMEN Order[facility] Address: [address] [place] [address] Performed By: #### 5 8410-2 #### [facility] [id number] [address] [place] [id number] [facility] [place] CNOVon 05-30-2023 CNOV Office Visit (OTOLMN ) -------- GAIL ALMEIDA ([id number]) 1955 F Date Time Provider Department 05/30/23 1:00 PM YANDEL DANIEL OTOLMO During your visit today, we recorded the [...] by mouth every 12 hours as needed. xzjoee-ubqjhubn-tvxlxzl (ENZADYNE) 9,000-112,500- 112,500 unit capsule Take 1 [...] mass ASSES (more content not included)... Normal [facility] CT NECK SOFT TISSUE W IVCONo [...] is no lymphadenopathy or soft tissue mass Chemical Laboratory Technician (topogram) images: No additional findings. IMPRESSION: LARGE GOITER DETAILED Used Car Manager: MAVERICK Transcribe Date/Time: May 30 2023 11:42A Dictated by : JOBY VILLAFUERTE MD This examination was interpreted and the report reviewed and electronically signed by: JOBY VILLAFUERTE MD on May 30 2023 11:47AM EST [id number] Normal [facility] HISTORY PHYSICALon 3 HISTORY PHYSICAL HNO ID: [id number] Author: Kristen Avalos PA-C Service: ? Author Type: Physician Tapping Machine Operator Type: HANDP Filed: 06/04/2023 1:48 PM [...] block. States she follows with cardiology in [place], [place], but patient poor historian so unable [...] Yes topiramate (more content not included)... Normal [facility] HbA1c (Bld)on 05-30-2023 Average glucose Estimated from glycated hemoglobin (Bld) [Mass/Vol] 100 mg/dL [facility] Comment on above: Order Comment: Speci men Type: BLOOD SPECIMEN Ordering Facility[facility] Address: [address] [place] [address] Result Comment: eAG: (Estimated average glucose) is a calculated value from HgbA1c and is c s s representative of the average blood glucose level in the last 2-3 month period. Performed By: #### 5 5454-3 #### [facility] CLIA [id number] [address] [place], [place] [address] [address] [place] HbA1c (Bld) [Mass fraction] 5.1 % Normal 4.3-5.6 [facility] Comment on above: Order Comment: Speci men Type: BLOOD SPECIMEN Order[facility] Address: [address] [place] [address] Result Comment: Rei ican Diabetes Association guidelines indicate that patients with HgbA1c in the range 5.7-6.4% are at increased risk for development of diabetes, and intervention by lifestyle modification may be beneficial. HgbA1c greater or equal to 6.5% is considered diagnostic of diabetes. Performed By: #### 5 5454-3 #### [facility] CLIA [id number] [address] [place] [address] [place] NURSING PROGon 05-30-2023 NURSING PROG HNO ID: [id number] Author: Rody Sher RN Service: Nursing Author [...] DATE: May 30, 2023 TIME: 10:13 [facility] (OESGMN ) -------- GAIL ALMEIDA ([id number]) 1955 F Date Time Provider Department 04/11/23 [...] details please see patient questionnaire scanned into [employer]. History: No past medical history on file. [...] refer to the patient questionnaire scanned into [employer]. Physical Exam: Vitals - There were no [...] Patient bennie (more content not included)... Normal [facility] -------- GAIL ALMEIDA ([id number]) 1955 F Date Time Provider Department 04/11/23 [...] mouth every 12 hours as needed. - abbasn-dsofqbgf-kfjqgrw (ENZADYNE) 9,000-112,500- 112,500 unit capsule Take 1 capsule by mouth daily with food. - nystatin (MYCOSTATIN) cream Apply to affected area two times a day. - OLANZapine (ZYPREXA) 5 mg tablet Take 5 mg by mouth every 12 hours as needed. Problem List As Of Date: 04/11/2023 (None) Encounter Status:Closed by RADHA BRICE on 04/11/23 [facility] Basophils Auto (Bld) [#/Vol] Ordered By: Mariana Pryor on 03-27-2023 Basophils (Bld) [#/Vol] 0.0 10*3/uL 0.0-0.2 [facility] Basophils/100 WBC Auto (Bld) Ordered By: Mariana Pryor on 03-27-2023 Basophils/100 WBC (Bld) 0.6 % . F [facility] Calcium [Mass/volume] in Ser um or PlasmaOrdered By: Mariana Pryor on 03-27-2023 Calcium [Mass/Vol] 9.5 mg/dL 8.6-10.3 [facility] Carbon dioxide, total [Moles /volume] in Serum or PlasmaOrdered By: Mariana Pryor on 03-27-2023 CO2 [Moles/Vol] 19.3 mmol/L 21.0-31.0 [facility] Chloride [Moles/volume] in S kishan or PlasmaOrdered By: Mariana Pryor on 03-27-2023 Chloride [Moles/Vol] 115 mmol/L 98-107 [facility] Creatinine [Mass/volume] in Serum or PlasmaOrdered By: Mariana Pryor on 03-27-2023 Creatinine [Mass/Vol] 0.96 mg/dL 0.60-1.[address] [facility] Eosinophils Auto (Bld) [#/Vo l]Ordered By: Mariana Pryor on 03-27-2023 Eosinophils (Bld) [#/Vol] 0.0 10*3/uL 0.0-0.45 [facility] Eosinophils/100 WBC Auto (Bl d)Ordered By: Mariana Pryor on 03-27-2023 Eosinophils/100 WBC (Bld) 0.4 % . [facility] Erythrocyte distribution wid th Auto (RBC) [Ratio]Ordered By: Mariana Guillaume on 03-27-2023 Erythrocyte distribution width (RBC) [Ratio] 13.2 % 11.9-15.3 [facility] Glucose [Mass/volume] in Ser um or PlasmaOrdered By: Mariana Pryor on 03-27-2023 Glucose [Mass/Vol] 110 mg/dL 70-100 [facility] Comment on above: ADA recommended refe rence rangeRandom Glucose Reference Range is dependent on time and content of last meal. Glucose of more than 200 mg/dL in a nonstressed, ambulatory subject supports the diagnosis of Diabetes Mellitus. Hematocrit Auto (Bld) [Volum e fraction]Ordered By: Mariana Pryor on 03-27-2023 Hematocrit (Bld) [Volume fraction] 34.1 % 34.0-46.4 [facility] Hemoglobin [Mass/volume] in BloodOrdered By: Mariana Pryor on 03-27-2023 Hemoglobin (Bld) [Mass/Vol] 11.5 g/dL 11.8-15.4 [facility] Leukocytes [#/volume] correc cornelia for nucleated erythrocytes in Blood by Automated counOrdered By: Mariana Pryor on 03-27-2023 WBC corrected for nucl RBC Auto (Bld) [#/Vol] 7.7 10*3/uL 3.8-11.6 [facility] Lymphocytes Auto (Bld) [#/Vo l]Ordered By: Mariana Pryor on 03-27-2023 Lymphocytes (Bld) [#/Vol] 1.2 10*3/uL 1.00-4.8 [facility] Lymphocytes/100 WBC Auto (Bl d)Ordered By: Mariana Pryor on 03-27-2023 Lymphocytes/100 WBC (Bld) 14.9 % . [facility] MCH Auto (RBC) [Entitic mass ]Ordered By: Mariana Pryor on 03-27-2023 MCH (RBC) [Entitic mass] 32.3 pg 24.7-34.3 [facility] MCHC Auto (RBC) [Mass/Vol]Or dered By: Mariana Pryor on 03-27-2023 MCHC (RBC) [Mass/Vol] 33.6 g/dL 32.0-35.0 [facility] MCV Auto (RBC) [Entitic vol] Ordered By: Mariana Pryor on 03-27-2023 MCV (RBC) [Entitic vol] 96.4 fL 80-[address] [facility] Monocytes Auto (Bld) [#/Vol] Ordered By: Mariana Pryor on 03-27-2023 Monocytes (Bld) [#/Vol] 0.6 10*3/uL 0.0-0.8 [facility] Monocytes/100 WBC Auto (Bld) Ordered By: Mariana Pryor on 03-27-2023 Monocytes/100 WBC (Bld) 8.3 % . F [facility] Neutrophils Auto (Bld) [#/Vo l]Ordered By: Mariana Proyr on 03-27-2023 Neutrophils (Bld) [#/Vol] 5.9 10*3/uL 1.8-7.7 [facility] Neutrophils/100 WBC Auto (Bl d)Ordered By: Mariana Pryor on 03-27-2023 Neutrophils/100 WBC (Bld) 75.8 % . [facility] No Panel InformationOrdered By: Mariana Pryor on 03-27-2023 Estimated GFR (CKD-EPI) > 60.0 mL/Min [facility] Creatinine Clearance (Chem 51.73 [facility] Nucleated erythrocytes [Pres ence] in Blood by Automated countOrdered By: Mariana Pryor on 03-27-2023 Nucleated RBC Auto Ql (Bld) 0.0 /100{WBC} 0-0.5 [facility] Platelet mean volume Auto (B ld) [Entitic vol]Ordered By: Mariana Pryor on 03-27-2023 Platelet mean volume (Bld) [Entitic vol] 8.5 fL 6.3-10.7 [facility] Platelets Auto (Bld) [#/Vol] Ordered By: Mariana Pryor on 03-27-2023 Platelets (Bld) [#/Vol] 201 10*3/uL 150-450 [facility] Potassium [Moles/volume] in Serum or PlasmaOrdered By: Mariana Pryor on 03-27-2023 Potassium [Moles/Vol] 4.0 mmol/L 3.5-5.[address] [facility] RBC Auto (Bld) [#/Vol]Ordere d By: Mariana Pryor on 03-27-2023 RBC (Bld) [#/Vol] 3.54 10*6/uL 3.60-5.00 [facility] Serum or plasma anion gap de terminationOrdered By: Mariana Pryor on 03-27-2023 Anion gap [Moles/Vol] 11.7 mmol/L 6.0-15.0 [facility] Sodium [Moles/volume] in Ser um or PlasmaOrdered By: Mariana Pryor on 03-27-2023 Sodium [Moles/Vol] 142 mmol/L 136-145 [facility] Urea nitrogen [Mass/volume] in Serum or PlasmaOrdered By: Mariana Pryor on 03-27-2023 Urea nitrogen [Mass/Vol] 20 mg/dL 12-25 [facility] WBC Auto (Bld) [#/Vol]Ordere d By: Mariana Pryor on 03-27-2023 WBC (Bld) [#/Vol] 7.7 10*3/uL 3.8-11.6 [facility] Alanine aminotransferase [En zymatic activity/volume] in Serum or PlasmaOrdered By: Mariana Pryor on 03-26-2023 ALT [Catalytic activity/Vol] 18 U/L [facility] Albumin [Mass/volume] in Ser um or Plasma by Bromocresol green (BCG) dye binding methoOrdered By: Mariana Pryor on 03-26-2023 Albumin BCG dye [Mass/Vol] 4.1 g/dL 3.5-5.7 [facility] Alkaline phosphatase [Enzyma tic activity/volume] in Serum or PlasmaOrdered By: Mariana Pryor on 03-26-2023 ALP [Catalytic activity/Vol] 92 U/L 34-104 [facility] Aspartate aminotransferase [ Enzymatic activity/volume] in Serum or PlasmaOrdered By: Mariana Pryor on 03-26-2023 AST [Catalytic activity/Vol] 15 U/L 13-39 [facility] Automated erythrocytes count in urine sediment (number/area)Ordered By: Mariana Pryor on 03-26-2023 RBC Auto (Urine sed) [#/Area] None seen [HPF] 0-4 [facility] Automated leukocytes count i n urine sediment (number/area)Ordered By: Mariana Pryor on 03-26-2023 WBC Auto (Urine sed) [#/Area] 20-49 [HPF] 0-4 [facility] Bilirubin Auto test strip Ql (U)Ordered By: Mariana Pryor on 03-26-2023 Bilirubin Ql (U) Negative Negative [facility] Bilirubin.total [Mass/volume ] in Serum or PlasmaOrdered By: Mariana Pryor on 03-26-2023 Bilirubin [Mass/Vol] 0.4 mg/dL 0.3-1.0 [facility] Cholesterol [Mass/volume] in Serum or PlasmaOrdered By: Joe Davis on 03-26-2023 Cholesterol [Mass/Vol] 165 mg/dL 140-200 [facility] Comment on above: Chol less than 200 m g/dl low riskChol 201-239 mg/dl borderline riskChol 240 mg/dl and greater high risk Cholesterol in LDL Calc [Mas s/Vol]Ordered By: Joe Davis on 03-26-2023 Cholesterol in LDL [Mass/Vol] 95 mg/dL 0-100 [facility] Comment on above: LDL ATP III CLASSIFI CATIONLDL less than 100 mg/dL OptimalLDL 100-129 mg/dL Near or above optimalLDL 130-159 mg/dL Borderline highLDL 160-189 mg/dL HighLDL greater than 189 mg/dL Very high Cholesterol in VLDL Calc [Ma ss/Vol]Ordered By: Joe Davis on 03-26-2023 Cholesterol in VLDL [Mass/Vol] 17 mg/dL [facility] Globulin Calc (S) [Mass/Vol] Ordered By: Mariana Pryor on 03-26-2023 Globulin (S) [Mass/Vol] 2.4 g/dL [facility] [facility] Ketones Auto test strip (U) [Mass/Vol]Ordered By: Mariana Pryor on 03-26-2023 Ketones (U) [Mass/Vol] 1+ Negative Fi [facility] - UrinalysisOrder ed By: Mariana Pryor on 03-26-2023 Hyaline casts LM Ql (Urine sed) None seen [LPF] 0-8 [facility] Lipase [Enzymatic activity/v olume] in Serum or PlasmaOrdered By: Mariana Pryor on 03-26-2023 Lipase [Catalytic activity/Vol] 11.0 U/L 11.0-82.0 [facility] [place] [Moles/volume] in Se rum or PlasmaOrdered By: Joe Davis on 03-26-2023 [place] [Moles/Vol] 0.20 mmol/L 0.60-1.20 [facility] Protein Auto test strip (U) [Mass/Vol]Ordered By: Mariana Pryor on 03-26-2023 Protein (U) [Mass/Vol] Negative Negative Fi relaCount includes the [facility] Protein [Mass/volume] in Ser um or PlasmaOrdered By: Mariana Pryor on 03-26-2023 Protein [Mass/Vol] 6.5 g/dL 6.4-8.9 [facility] Serum or plasma albumin/glob ulin mass ratioOrdered By: Mariana Pryor on 03-26-2023 Albumin/Globulin [Mass ratio] 1.7 {ratio} [facility] Serum or plasma high density lipoprotein (HDL) cholesterol measurementOrdered By: Joe Davis on 03-26-2023 Cholesterol in HDL [Mass/Vol] 53 mg/dL 23-92 [facility] Comment on above: HDL CHOL ATP-III CLA SSIFICATION Cardiovascular RiskHDL > or equal to 60 mg/dL LOWHDL < 40 mg/dL HIGH Serum or plasma total choles terol/high density lipoprotein (HDL) cholesterol mass ratOrdered By: Joe Davis on 03-26-2023 Cholesterol.total/Judy sterol in HDL [Mass ratio] 3.1 {ratio} <5.0 [facility] Squamous epithelial cells de tection in urine sediment by light microscopyOrdered By: Mariana Pryor on 03-26-2023 Epithelial cells.squamous LM Ql (Urine sed) 0-1 [HPF] 0-2 [facility] Thyrotropin [Units/volume] i n Serum or PlasmaOrdered By: Joe Davis on 03-26-2023 TSH Qn 0.42 m[IU]/L 0.45-5.33 [facility] Thyroxine (T4) free [Mass/vo lume] in Serum or PlasmaOrdered By: Joe Davis on 03-26-2023 Free T4 [Mass/Vol] 0.74 ng/dL 0.61-1.12 [facility] Triglyceride [Mass/volume] i n Serum or PlasmaOrdered By: Joe Davis on 03-26-2023 Triglyceride [Mass/Vol] 86 mg/dL 0-[address] [facility] Comment on above: TRIG ATP III CLASSIF ICATIONTRIG less than 150 mg/dL NormalTRIG 150-199 mg/dL Borderline highTRIG 200-500 mg/dL High TRIG greater than 500 mg/dL Very highStandard traceable to the Center for Disease Conrtrol and Prevention (CDC) test method. Urine appearanceOrdered By: Mariana Pryor on 03-26-2023 Appearance (U) Clear Clear [facility] Urine bacteria detection by automated methodOrdered By: Mariana Pryor on 10-24-2023 Bacteria Auto Ql (U) None seen None Seen [facility] Urine colorOrdered By: Mariana Pryor on 03-26-2023 Color (U) Yellow Yellow [facility] Urine glucose measurement by automated test strip (mass/volume)Ordered By: Mariana Pryor on 03-26-2023 Glucose Auto test strip (U) [Mass/Vol] Normal mg/dL Normal [facility] Urine hemoglobin detection b y automated test stripOrdered By: Mariana Guillaume on 03-26-2023 Hemoglobin Auto test strip Ql (U) Trace Negative [facility] Urine leukocyte esterase det ection by automated test stripOrdered By: Mariana Pryor on 03-26-2023 Leukocyte esterase Auto test strip Ql (U) 3+ Negative [facility] Urine nitrite detection by a utomated test stripOrdered By: Mariana Proyr on 03-26-2023 Nitrite Auto test strip Ql (U) Negative Negative [facility] Urobilinogen Auto test strip (U) [Mass/Vol]Ordered By: Mariana Pryor on 03-26-2023 Urobilinogen (U) [Mass/Vol] Normal mg/dL Normal [facility] Vitamin D+Metabolites [Mass/ volume] in Serum or PlasmaOrdered By: Joe Davis on 03-26-2023 Vitamin D+Metabolites [Mass/Vol] 34.5 ng/mL 30-100 [facility] Comment on above: VITAMIN D STATUS 25( [place])VITAMIN D RANGE (ng/mL) Deficient <20 Insufficient 20 to <30Sufficient 30 to 100Reference: Lucio MF,Renée DRAKE, Francisco CARPIO, et al. Evaluation,treatment, and prevention of vitamin D deficiency; an Endocrine Society clinical practice guideline. JCEM. 2010; 96(7):1911-30. pH Auto test strip (U)Ordere d By: Mariana Pryor on 03-26-2023 pH (U) 1.010 [pH] 1.001-1.03 0 [facility] pH (U) 6.0 [pH] 5.0-9.0 [facility] Alanine aminotransferase [En zymatic activity/volume] in Serum or PlasmaOrdered By: Mariana Kee on 03-14-2023 ALT [Catalytic activity/Vol] 28 U/L 7-52 [facility] Albumin [Mass/volume] in Ser um or Plasma by Bromocresol green (BCG) dye binding methoOrdered By: Mariana Kee on 03-14-2023 Albumin BCG dye [Mass/Vol] 3.9 g/dL 3.5-5.7 [facility] Alkaline phosphatase [Enzyma tic activity/volume] in Serum or PlasmaOrdered By: Mariana Kee on 03-14-2023 ALP [Catalytic activity/Vol] 86 U/L 34-104 [facility] Aspartate aminotransferase [ Enzymatic activity/volume] in Serum or PlasmaOrdered By: Mariana Kee on 03-14-2023 AST [Catalytic activity/Vol] 18 U/L 13-39 [facility] Basophils Auto (Bld) [#/Vol] Ordered By: Mariana Kee on 03-14-2023 Basophils (Bld) [#/Vol] 0.1 10*3/uL 0.0-0.2 [facility] Basophils/100 WBC Auto (Bld) Ordered By: Mariana Kee on 03-14-2023 Basophils/100 WBC (Bld) 1.0 % . F [facility] Bilirubin.total [Mass/volume ] in Serum or PlasmaOrdered By: Mariana Kee on 03-14-2023 Bilirubin [Mass/Vol] 0.3 mg/dL 0.3-1.0 [facility] Calcium [Mass/volume] in Ser um or PlasmaOrdered By: Mariana Kee on 03-14-2023 Calcium [Mass/Vol] 9.3 mg/dL 8.6-10.3 [facility] Carbon dioxide, total [Moles /volume] in Serum or PlasmaOrdered By: Mariana Kee on 03-14-2023 CO2 [Moles/Vol] 20.1 mmol/L 21.0-31.0 [facility] Chloride [Moles/volume] in S kishan or PlasmaOrdered By: Mariana Kee on 03-14-2023 Chloride [Moles/Vol] 116 mmol/L 98-107 [facility] Creatinine [Mass/volume] in Serum or PlasmaOrdered By: Mariana Kee on 03-14-2023 Creatinine [Mass/Vol] 1.01 mg/dL 0.60-1.[address] [facility] Eosinophils Auto (Bld) [#/Vo l]Ordered By: Mariana Kee on 03-14-2023 Eosinophils (Bld) [#/Vol] 0.2 10*3/uL 0.0-0.45 [facility] Eosinophils/100 WBC Auto (Bl d)Ordered By: Mariana Kee on 03-14-2023 Eosinophils/100 WBC (Bld) 4.6 % . [facility] Erythrocyte distribution wid th Auto (RBC) [Ratio]Ordered By: Mariana Kee on 03-14-2023 Erythrocyte distribution width (RBC) [Ratio] 13.3 % 11.9-15.3 [facility] Globulin Calc (S) [Mass/Vol] Ordered By: Mariana Kee on 03-14-2023 Globulin (S) [Mass/Vol] 2.0 g/dL [facility] Glucose [Mass/volume] in Ser um or PlasmaOrdered By: Mariana Kee on 03-14-2023 Glucose [Mass/Vol] 101 mg/dL 70-100 [facility] Comment on above: ADA recommended refe rence rangeRandom Glucose Reference Range is dependent on time and content of last meal. Glucose of more than 200 mg/dL in a nonstressed, ambulatory subject supports the diagnosis of Diabetes Mellitus. Hematocrit Auto (Bld) [Volum e fraction]Ordered By: Mariana Kee on 03-14-2023 Hematocrit (Bld) [Volume fraction] 37.4 % 34.0-46.4 [facility] Hemoglobin [Mass/volume] in BloodOrdered By: Mariana Kee on 03-14-2023 Hemoglobin (Bld) [Mass/Vol] 12.5 g/dL 11.8-15.4 [facility] Leukocytes [#/volume] correc cornelia for nucleated erythrocytes in Blood by Automated counOrdered By: Mariana Kee on 03-14-2023 WBC corrected for nucl RBC Auto (Bld) [#/Vol] 5.2 10*3/uL 3.8-11.6 [facility] Lipase [Enzymatic activity/v olume] in Serum or PlasmaOrdered By: Mariana Kee on 03-14-2023 Lipase [Catalytic activity/Vol] 21.0 U/L 11.0-82.0 [facility] Lymphocytes Auto (Bld) [#/Vo l]Ordered By: Mariana Kee on 03-14-2023 Lymphocytes (Bld) [#/Vol] 1.9 10*3/uL 1.00-4.8 [facility] Lymphocytes/100 WBC Auto (Bl d)Ordered By: Mariana Kee on 03-14-2023 Lymphocytes/100 WBC (Bld) 37.2 % . [facility] MCH Auto (RBC) [Entitic mass ]Ordered By: Mariana Kee on 03-14-2023 MCH (RBC) [Entitic mass] 31.9 pg 24.7-34.3 [facility] MCHC Auto (RBC) [Mass/Vol]Or dered By: Mariana Kee on 03-14-2023 MCHC (RBC) [Mass/Vol] 33.5 g/dL 32.0-35.[address] [facility] MCV Auto (RBC) [Entitic vol] Ordered By: Mariana Kee on 03-14-2023 MCV (RBC) [Entitic vol] 95.2 fL 80-[address] [facility] Monocytes Auto (Bld) [#/Vol] Ordered By: Mariana Kee on 03-14-2023 Monocytes (Bld) [#/Vol] 0.6 10*3/uL 0.0-0.8 [facility] Monocytes/100 WBC Auto (Bld) Ordered By: Mariana Kee on 03-14-2023 Monocytes/100 WBC (Bld) 11.5 % . F [facility] Neutrophils Auto (Bld) [#/Vo l]Ordered By: Mariana Kee on 03-14-2023 Neutrophils (Bld) [#/Vol] 2.4 10*3/uL 1.8-7.7 [facility] Neutrophils/100 WBC Auto (Bl d)Ordered By: Mariana Kee on 03-14-2023 Neutrophils/100 WBC (Bld) 45.7 % . [facility] No Panel InformationOrdered By: Mariana Kee on 03-14-2023 Estimated GFR (CKD-EPI) > 60.0 mL/Min [facility] Creatinine Clearance (Chem 49.17 [facility] Nucleated erythrocytes [Pres ence] in Blood by Automated countOrdered By: Mariana Kee on 03-14-2023 Nucleated RBC Auto Ql (Bld) 0.1 /100{WBC} 0-0.5 [facility] Platelet mean volume Auto (B ld) [Entitic vol]Ordered By: Mariana Kee on 03-14-2023 Platelet mean volume (Bld) [Entitic vol] 8.7 fL 6.3-10.7 [facility] Platelets Auto (Bld) [#/Vol] Ordered By: Mariana Kee on 03-14-2023 Platelets (Bld) [#/Vol] 212 10*3/uL 150-450 [facility] Potassium [Moles/volume] in Serum or PlasmaOrdered By: Mariana Kee on 03-14-2023 Potassium [Moles/Vol] 4.2 mmol/L 3.5-5.[address] [facility] Protein [Mass/volume] in Ser um or PlasmaOrdered By: Mariana Kee on 03-14-2023 Protein [Mass/Vol] 5.9 g/dL 6.4-8.9 [facility] RBC Auto (Bld) [#/Vol]Ordere d By: Mariana Kee on 03-14-2023 RBC (Bld) [#/Vol] 3.93 10*6/uL 3.60-5.00 [facility] Serum or plasma albumin/glob ulin mass ratioOrdered By: Mariana Kee on 03-14-2023 Albumin/Globulin [Mass ratio] 2.0 {ratio} [facility] Serum or plasma anion gap de terminationOrdered By: Mariana Kee on 03-14-2023 Anion gap [Moles/Vol] 9.1 mmol/L 6.0-15.[address] [facility] Sodium [Moles/volume] in Ser um or PlasmaOrdered By: Mariana Kee on 03-14-2023 Sodium [Moles/Vol] 141 mmol/L 136-145 [facility] Urea nitrogen [Mass/volume] in Serum or PlasmaOrdered By: Mariana Kee on 03-14-2023 Urea nitrogen [Mass/Vol] 30 mg/dL 7-25 [facility] WBC Auto (Bld) [#/Vol]Ordere d By: Mariana Kee on 03-14-2023 WBC (Bld) [#/Vol] 5.2 10*3/uL 3.8-11.6 [facility] Automated erythrocytes count in urine sediment (number/area)Ordered By: Joe Davis on 03-12-2023 RBC Auto (Urine sed) [#/Area] 0-1 [HPF] 0-4 [facility] Automated leukocytes count i n urine sediment (number/area)Ordered By: Joe Davis on 03-12-2023 WBC Auto (Urine sed) [#/Area] 20-49 [HPF] 0-4 [facility] Bilirubin Test strip Ql (U)O rdered By: Joe Davis on 03-12-2023 Bilirubin Ql (U) Negative Negative [facility] Cholesterol [Mass/volume] in Serum or PlasmaOrdered By: Joe Davis on 03-12-2023 Cholesterol [Mass/Vol] 162 mg/dL 140-200 [facility] Comment on above: Chol less than 200 m g/dl low riskChol 201-239 mg/dl borderline riskChol 240 mg/dl and greater high risk Cholesterol in LDL Calc [Mas s/Vol]Ordered By: Joe Davis on 03-12-2023 Cholesterol in LDL [Mass/Vol] 95 mg/dL 0-100 [facility] Comment on above: LDL ATP III CLASSIFI CATIONLDL less than 100 mg/dL OptimalLDL 100-129 mg/dL Near or above optimalLDL 130-159 mg/dL Borderline highLDL 160-189 mg/dL HighLDL greater than 189 mg/dL Very high Cholesterol in VLDL Calc [Ma ss/Vol]Ordered By: Joe Davis on 03-12-2023 Cholesterol in VLDL [Mass/Vol] 15 mg/dL [facility] Color Auto (U)Ordered By: Ab sofia Davis on 03-12-2023 Color (U) Yellow Yellow [facility] Ketones Auto test strip (U) [Mass/Vol]Ordered By: Joe Davis on 03-12-2023 Ketones (U) [Mass/Vol] Negative Negative Fi [facility] - UrinalysisOrder ed By: Joe Davis on 03-12-2023 Hyaline casts LM Ql (Urine sed) 0-8 [LPF] 0-8 [facility] Nitrite Test strip Ql (U)Ord ered By: Joe Davis on 03-12-2023 Nitrite Ql (U) Negative Negative [facility] Protein Auto test strip (U) [Mass/Vol]Ordered By: Joe Davis on 03-12-2023 Protein (U) [Mass/Vol] Negative Negative [facility] Serum or plasma high density lipoprotein (HDL) cholesterol measurementOrdered By: Joe Davis on 03-12-2023 Cholesterol in HDL [Mass/Vol] 52 mg/dL 23-92 [facility] Comment on above: HDL CHOL ATP-III CLA SSIFICATION Cardiovascular RiskHDL > or equal to 60 mg/dL LOWHDL < 40 mg/dL HIGH Serum or plasma total choles terol/high density lipoprotein (HDL) cholesterol mass ratOrdered By: Joe Davis on 03-12-2023 Cholesterol.total/Judy sterol in HDL [Mass ratio] 3.1 {ratio} <5.0 [facility] Specific gravity Auto test s trip (U) [Rel density]Ordered By: Joe Davis on 03-12-2023 Specific gravity (U) [Rel density] 1.006 1.001-1.03 0 [facility] Squamous epithelial cells de tection in urine sediment by light microscopyOrdered By: Joe Davis on 03-12-2023 Epithelial cells.squamous LM Ql (Urine sed) 0-1 [HPF] 0-2 [facility] Thyrotropin [Units/volume] i n Serum or PlasmaOrdered By: Joe Davis on 03-12-2023 TSH Qn 0.91 m[IU]/L 0.45-5.33 [facility] Triglyceride [Mass/volume] i n Serum or PlasmaOrdered By: Joe Davis on 03-12-2023 Triglyceride [Mass/Vol] 76 mg/dL 0-[address] [facility] Comment on above: TRIG ATP III CLASSIF ICATIONTRIG less than 150 mg/dL NormalTRIG 150-199 mg/dL Borderline highTRIG 200-500 mg/dL High TRIG greater than 500 mg/dL Very highStandard traceable to the Center for Disease Conrtrol and Prevention (CDC) test method. Urine bacteria detection by automated methodOrdered By: Joe Davis on 03-12-2023 Bacteria Auto Ql (U) None seen None Seen [facility] Urine clarity by refractomet ry automatedOrdered By: Joe Davis on 03-12-2023 Clarity Refractometry automated (U) Clear Clear [facility] Urine culture routineOrdered By: Joe Davis on 03-12-2023 Bacteria identified Cx Nom (U) bacilli - 2 Days [facility] Urine glucose measurement by automated test strip (mass/volume)Ordered By: Joe Davis on 03-12-2023 Glucose Auto test strip (U) [Mass/Vol] Normal mg/dL Normal [facility] Urine hemoglobin detection b y automated test stripOrdered By: Joe Davis on 03-12-2023 Hemoglobin Auto test strip Ql (U) Negative Negative [facility] Urine leukocyte esterase det ection by automated test stripOrdered By: Joe Davis on 03-12-2023 Leukocyte esterase Auto test strip Ql (U) 4+ Negative [facility] Urobilinogen Auto test strip (U) [Mass/Vol]Ordered By: Joe Davis on 03-12-2023 Urobilinogen (U) [Mass/Vol] Normal mg/dL Normal [facility] Vitamin D+Metabolites [Mass/ volume] in Serum or PlasmaOrdered By: Joe Davis on 03-12-2023 Vitamin D+Metabolites [Mass/Vol] 28.1 ng/mL 30-100 [facility] Comment on above: VITAMIN D STATUS 25( [place])VITAMIN D RANGE (ng/mL) Deficient <20 Insufficient 20 to <30Sufficient 30 to 100Reference: Lucio MF,Renée NC, Francisco CARPIO, et al. Evaluation,treatment, and prevention of vitamin D deficiency; an Endocrine Society clinical practice guideline. JCEM. 2010; 96(7):1911-30. pH Auto test strip (U)Ordere d By: Joe Davis on 03-12-2023 pH (U) 7.0 [pH] 5.0-9.0 [facility] [place] [Moles/volume] in Se rum or PlasmaOrdered By: NON STAFF on 03-11-2023 [place] [Moles/Vol] 0.50 mmol/L 0.60-1.20 [facility] XR shoulder RT min 2V*on XR shoulder RT min 2V* [facility] [employer] Other XR shoulder RT min 2V* [facility] [employer] Other XR shoulder RT min 2V* [address] [place] [address] [employer] Other XR shoulder RT min 2V* [place] [address] [facility] [employer] Other XR shoulder RT min 2V* XRay Report N [facility] [employer] Other XR shoulder RT min 2V* Signed No rt [employer] Other XR shoulder RT min 2V* Patient: Mary Anne Almeida MR#: [id number] [facility] [employer] Other XR shoulder RT min 2V* 250 No rt [employer] Other XR shoulder RT min 2V* : 1955 Acct:[id number] [facility] [employer] Other XR shoulder RT min 2V* Age/Sex: 67 / F A DM Date: 12/12/22 [employer] Other XR shoulder RT min 2V* Loc: [facility] [place] Room: T ype: [facility] [employer] Other XR shoulder RT min 2V* Attending Dr: Neftali Adame DO [employer] Other XR shoulder RT min 2V* Copies to: Emory Adame DO [employer] Other XR shoulder RT min 2V* Ordering Provider : Emory Adame DO [employer] Other XR shoulder RT min 2V* Date of Service: 12/12/22 [employer] Other XR shoulder RT min 2V* XR/XR shoulder RT min 2V*: Other closed displaced fracture of proximal [employer] Other XR shoulder RT min 2V* end of right hum [employer] Other XR shoulder RT min 2V* XR shoulder RT mi n 2V* 12/12/2022 1:42 PM [employer] Other XR shoulder RT min 2V* SIGNS AND SYMPTOM S: Status post right proximal humerus fracture, hardware fixation, follow-up [employer] Other XR shoulder RT min 2V* PROTOCOL: Frontal , Grashey, and scapular Y views of the right shoulder. [employer] Other XR shoulder RT min 2V* COMPARISON: 10/31/2022 [employer] Other XR shoulder RT min 2V* FINDINGS: No [employer] Other XR shoulder RT min 2V* There is hardware fixation of the right humeral head and proximal humeral shaft. There is no [employer] Other XR shoulder RT min 2V* hardware complica tion. There are bony fragments within the rotator interval which have migrated the [employer] Other XR shoulder RT min 2V* prior exam. The acromioclavicular joint and glenohumeral joint are preserved. The visualized right [employer] Other XR shoulder RT min 2V* hemithorax is la ssly intact. [employer] Other XR shoulder RT min 2V* 7 XR/XR shoulder RT min 2V* [employer] Other XR shoulder RT min 2V* IMPRESSION: N [employer] Other XR shoulder RT min 2V* hardware complication. [employer] Other XR shoulder RT min 2V* There are bony fr agments within the rotator interval which have migrated the prior exam. [employer] Other XR shoulder RT min 2V* Impression dictat ed by: Janis Jett M.D.12/12/2022 4:03 PM [employer] Other XR shoulder RT min 2V* Dictation Locatio n: RADIO-PC-12 [employer] Other XR shoulder RT min 2V* Transcribed By: Alpa DUVALL 12/12/22 [facility]3 [employer] Other XR shoulder RT min 2V* Dictated By: Janis Jett II, MD 12/12/22 1600 [employer] Other XR shoulder RT min 2V* Signed By: No rt [employer] Other XR shoulder RT min 2V* 12/12/22 1603 [employer] Other XR shoulder RT min 2V*on XR shoulder RT min 2V* [facility] [employer] Other XR shoulder RT min 2V* [facility] [place] [employer] Other XR shoulder RT min 2V* [address] [place] [address] [employer] Other XR shoulder RT min 2V* [place] [address] [employer] Other XR shoulder RT min 2V* XRay Report N [facility] [employer] Other XR shoulder RT min 2V* Signed No rt [employer] Other XR shoulder RT min 2V* Patient: Mary Anne Almeida MR#: [id number] [place] [employer] Other XR shoulder RT min 2V* 250 No rt [employer] Other XR shoulder RT min 2V* : 1955 Acct:[id number] [employer] Other XR shoulder RT min 2V* Age/Sex: 67 / F A DM Date: 10/31/22 [employer] Other XR shoulder RT min 2V* Loc: [facility] Room: T ype: [facility] [employer] Other XR shoulder RT min 2V* Attending Dr: Neftali Adame DO [employer] Other XR shoulder RT min 2V* Copies to: Emory Adame DO [employer] Other XR shoulder RT min 2V* Ordering Provider : Emory Adame DO [employer] Other XR shoulder RT min 2V* Date of Service: 10/31/22 [employer] Other XR shoulder RT min 2V* XR/XR shoulder RT min 2V*: Other closed displaced fracture of proximal [employer] Other XR shoulder RT min 2V* end of right hum [employer] Other XR shoulder RT min 2V* RIGHT SHOULDER - - 3 views [employer] Other XR shoulder RT min 2V* CLINICAL HISTORY: ORIF right humerus [employer] Other XR shoulder RT min 2V* COMPARISON: Right shoulder 10/03/2022 [employer] Other XR shoulder RT min 2V* FINDINGS: No rt [employer] Other XR shoulder RT min 2V* Hardware fixation is seen involving the right humeral neck without evidence of hardware [employer] Other XR shoulder RT min 2V* complication. Fragmentation versus callus formation is noted involving the greater tubercle [employer] Other XR shoulder RT min 2V* possibly represen ting healing response. [employer] Other XR shoulder RT min 2V* 1 XR/XR shoulder RT min 2V* [employer] Other XR shoulder RT min 2V* IMPRESSION: N [facility] [employer] Other XR shoulder RT min 2V* FRAGMENTATION PETER HARRY CALCIFIED FORMATION IS NOTED INVOLVING THE GREATER TUBERCLE POSSIBLY [employer] Other XR shoulder RT min 2V* REPRESENTING HEAL ING RESPONSE. FOLLOW-UP IS RECOMMENDED.. [employer] Other XR shoulder RT min 2V* Impression dictat ed by: Yandel Lees Jr., D.O.10/31/2022 4:06 PM [employer] Other XR shoulder RT min 2V* Dictation Locatio n: RADIO-PC-08 [employer] Other XR shoulder RT min 2V* Transcribed By: Alpa DUVALL 10/31/22 160 [employer] Other XR shoulder RT min 2V* Dictated By: Isrrael Lees Jr, DO 10/31/22 160 [employer] Other XR shoulder RT min 2V* Signed By: [facility] [employer] Other XR shoulder RT min 2V* 10/31/22 1606 [employer] Other LITHIUMon 10-27-2022 [place] (Eskalith(R)), Serum 0.9 mmol/L Normal 0.5-1.2 [facility] Comment on above: Result Comment: A co ncentration of 0.5-0.8 mmol/L is advised for long-term use; concentrations of up to 1.2 mmol/L may be necessary during acute treatment. Detection Limit = 0.1 <0.1 indicates None Detected Performed By: #### L ITHIUM #### [facility] [address] [address] [address] Beny Johnson CREATININEon 10-26-2022 Creatinine [Mass/Vol] 1.43 mg/dL Critically high 0.55-1.02 [facility] Comment on above: Performed By: #### T SH, CREA #### [facility] [address] [place] [address] Dr. Beny Johnson EGFR-AF LEBANESE 45 mL/min/1.73m2 Critically low >=60 [facility] Comment on above: Performed By: #### T SH, CREA #### [facility] [address] [address] [address] Beny Johnson EGFR-NON AF LEBANESE 37 mL/min/1.73m2 Critically low >=60 [facility] Comment on above: Performed By: #### T SH, CREA #### [facility] [address] [place] [address] Dr. Beny Johnson TSHon 10-26-2022 TSH 1.213 uIU/mL Normal 0.358-3.[address] [facility] Comment on above: Performed By: #### T SH, CREA #### [facility] [address] [place] [address] Dr. Beny Johnson Hematocrit Auto (Bld) [Volum e fraction]Ordered By: Emory Adame on 09-13-2022 Hematocrit (Bld) [Volume fraction] 36.3 % 34.0-46.4 [facility] Hemoglobin [Mass/volume] in BloodOrdered By: Emory Adame on 09-13-2022 Hemoglobin (Bld) [Mass/Vol] 11.6 g/dL 11.8-15.4 [facility] Basophils Auto (Bld) [#/Vol] Ordered By: Emory Adame on 09-11-2022 Basophils (Bld) [#/Vol] 0.1 10*3/uL 0.0-0.2 [facility] Basophils/100 WBC Auto (Bld) Ordered By: Emory Adame on 09-11-2022 Basophils/100 WBC (Bld) 0.9 % . F [facility] Calcium [Mass/volume] in Ser um or PlasmaOrdered By: Emory Adame on 09-11-2022 Calcium [Mass/Vol] 10.4 mg/dL 8.6-10.3 [facility] Carbon dioxide, total [Moles /volume] in Serum or PlasmaOrdered By: Emory Adame on 09-11-2022 CO2 [Moles/Vol] 22.2 mmol/L 21.0-31.0 [facility] [facility] Chloride [Moles/volume] in S kishan or PlasmaOrdered By: Emory Adame on 09-11-2022 Chloride [Moles/Vol] 113 mmol/L 98-107 [facility] Creatinine [Mass/volume] in Serum or PlasmaOrdered By: Emory Adame on 09-11-2022 Creatinine [Mass/Vol] 1.06 mg/dL 0.60-1.[address] [facility] Eosinophils Auto (Bld) [#/Vo l]Ordered By: Emory Adame on 09-11-2022 Eosinophils (Bld) [#/Vol] 0.1 10*3/uL 0.0-0.45 [facility] Eosinophils/100 WBC Auto (Bl d)Ordered By: Emory Adame on 09-11-2022 Eosinophils/100 WBC (Bld) 1.8 % . [facility] Erythrocyte distribution wid th Auto (RBC) [Ratio]Ordered By: Emory Adame on 09-11-2022 Erythrocyte distribution width (RBC) [Ratio] 13.8 % 11.9-15.3 [facility] Glucose [Mass/volume] in Ser um or PlasmaOrdered By: Emory Adame on 09-11-2022 Glucose [Mass/Vol] 113 mg/dL 70-100 [facility] Comment on above: ADA recommended refe rence rangeRandom Glucose Reference Range is dependent on time and content of last meal. Glucose of more than 200 mg/dL in a nonstressed, ambulatory subject supports the diagnosis of Diabetes Mellitus. Hematocrit Auto (Bld) [Volum e fraction]Ordered By: Emory Adame on 09-11-2022 Hematocrit (Bld) [Volume fraction] 36.8 % 34.0-46.4 [facility] Hemoglobin [Mass/volume] in BloodOrdered By: Emory Adame on 09-11-2022 Hemoglobin (Bld) [Mass/Vol] 12.2 g/dL 11.8-15.4 [facility] Leukocytes [#/volume] correc cornelia for nucleated erythrocytes in Blood by Automated counOrdered By: Emory Adame on 09-11-2022 WBC corrected for nucl RBC Auto (Bld) [#/Vol] 5.9 10*3/uL 3.8-11.6 [facility] Lymphocytes Auto (Bld) [#/Vo l]Ordered By: Emory Adame on 09-11-2022 Lymphocytes (Bld) [#/Vol] 1.1 10*3/uL 1.00-4.8 [facility] Lymphocytes/100 WBC Auto (Bl d)Ordered By: Emory Adame on 09-11-2022 Lymphocytes/100 WBC (Bld) 19.4 % . [facility] MCH Auto (RBC) [Entitic mass ]Ordered By: Emory Adame on 09-11-2022 MCH (RBC) [Entitic mass] 31.8 pg 24.7-34.3 [facility] MCHC Auto (RBC) [Mass/Vol]Or dered By: Emory Adame on 09-11-2022 MCHC (RBC) [Mass/Vol] 33.2 g/dL 32.0-35.[address] [facility] MCV Auto (RBC) [Entitic vol] Ordered By: Emory Adame on 09-11-2022 MCV (RBC) [Entitic vol] 95.7 fL 80-[address] [facility] Monocytes Auto (Bld) [#/Vol] Ordered By: Emory Adame on 09-11-2022 Monocytes (Bld) [#/Vol] 0.5 10*3/uL 0.0-0.8 [facility] Monocytes/100 WBC Auto (Bld) Ordered By: Emory Adame on 09-11-2022 Monocytes/100 WBC (Bld) 8.0 % . F [facility] Neutrophils Auto (Bld) [#/Vo l]Ordered By: Emory Adame on 09-11-2022 Neutrophils (Bld) [#/Vol] 4.1 10*3/uL 1.8-7.7 [facility] Neutrophils/100 WBC Auto (Bl d)Ordered By: Emory Adame on 09-11-2022 Neutrophils/100 WBC (Bld) 69.9 % . [facility] No Panel InformationOrdered By: Emory Adame on 09-11-2022 Estimated GFR (CKD-EPI) 58.298 mL/Min [facility] Creatinine Clearance (Chem N/A [facility] Nucleated erythrocytes [Pres ence] in Blood by Automated countOrdered By: Emory Adame on 09-11-2022 Nucleated RBC Auto Ql (Bld) 0.1 /100{WBC} 0-0.5 [facility] Platelet mean volume Auto (B ld) [Entitic vol]Ordered By: Emory Adame on 09-11-2022 Platelet mean volume (Bld) [Entitic vol] 8.1 fL 6.3-10.7 [facility] Platelets Auto (Bld) [#/Vol] Ordered By: Emory Adame on 09-11-2022 Platelets (Bld) [#/Vol] 303 10*3/uL 150-450 [facility] Potassium [Moles/volume] in Serum or PlasmaOrdered By: Emory Adame on 09-11-2022 Potassium [Moles/Vol] 4.8 mmol/L 3.5-5.[address] [facility] RBC Auto (Bld) [#/Vol]Ordere d By: Emory Adame on 09-11-2022 RBC (Bld) [#/Vol] 3.85 10*6/uL 3.60-5.00 [facility] Serum or plasma anion gap de terminationOrdered By: Emory Adame on 09-11-2022 Anion gap [Moles/Vol] 11.6 mmol/L 6.0-15.0 [facility] Sodium [Moles/volume] in Ser um or PlasmaOrdered By: Emory Adame on 09-11-2022 Sodium [Moles/Vol] 142 mmol/L 136-145 [facility] Urea nitrogen [Mass/volume] in Serum or PlasmaOrdered By: Emory Adame on 09-11-2022 Urea nitrogen [Mass/Vol] 24 mg/dL 7-25 [facility] WBC Auto (Bld) [#/Vol]Ordere d By: Emory Adame on 09-11-2022 WBC (Bld) [#/Vol] 5.9 10*3/uL 3.8-11.6 [facility] XR shoulder RT min 2V*on XR shoulder RT min 2V* [facility] [employer] Other XR shoulder RT min 2V* [facility] [employer] Other XR shoulder RT min 2V* [address] [place] [address] [employer] Other XR shoulder RT min 2V* [place] [address] [employer] [facility] [employer] Other XR shoulder RT min 2V* XRay Report N [facility] [employer] Other XR shoulder RT min 2V* Signed No rt [employer] Other XR shoulder RT min 2V* Patient: Mary Anne Almeida MR#: [id number] [facility] [employer] Other XR shoulder RT min 2V* 250 No rt [employer] Other XR shoulder RT min 2V* : 1955 Acct:[id number] [employer] Other XR shoulder RT min 2V* Age/Sex: 66 / F A DM Date: 09/10/22 [employer] Other XR shoulder RT min 2V* Loc: [facility] Room: T ype: REG [facility] [employer] Other XR shoulder RT min 2V* Attending Dr: Neftali Adame DO [employer] Other XR shoulder RT min 2V* Copies to: Emory Adame, [employer] Other XR shoulder RT min 2V* Ordering Provider : Emory Adame DO [employer] Other XR shoulder RT min 2V* Date of Service: 09/10/22 [employer] Other XR shoulder RT min 2V* XR/XR shoulder RT min 2V*: Acute pain of right shoulder [employer] Other XR shoulder RT min 2V* RIGHT SHOULDER - - 3 views [employer] Other XR shoulder RT min 2V* CLINICAL HISTORY: Proximal right humerus fracture continued pain. [employer] Other XR shoulder RT min 2V* COMPARISON: Right shoulder 09/06/2022 [employer] Other XR shoulder RT min 2V* FINDINGS: No rtRECUPYL Other XR shoulder RT min 2V* Greater tuberosit y fracture is once again demonstrated grossly unchanged in alignment when compared [employer] Other XR shoulder RT min 2V* to the prior stud y. Sclerosis is seen involving the fracture site suggestive of healing response. AC [employer] Other XR shoulder RT min 2V* joint appears intact. [employer] Other XR shoulder RT min 2V* 3 XR/XR shoulder RT min 2V* [employer] Other XR shoulder RT min 2V* IMPRESSION: N [employer] Other XR shoulder RT min 2V* SCLEROSIS IS SEEN AT THE GREATER TUBEROSITY FRACTURE SITE SUGGESTIVE OF HEALING RESPONSE. NO CHANGE [employer] Other XR shoulder RT min 2V* IN ALIGNMENT. [employer] Other XR shoulder RT min 2V* Impression dictat ed by: Yandel Lees Jr., D.O.09/10/2022 12:18 PM [employer] Other XR shoulder RT min 2V* Dictation Locatio n: RADIO-PC-12 [employer] Other XR shoulder RT min 2V* Transcribed By: Alpa DUVALL 09/10/22 [facility] [employer] Other XR shoulder RT min 2V* Dictated By: Isrrael Lees Jr, 09/10/22 [facility] [employer] Other XR shoulder RT min 2V* Signed By: Millicent rt [employer] Other XR shoulder RT min 2V* 09/10/22 [facility]8 [employer] Other XR SHOULDER RT 1 Von 09-06-2 [...] HÉCTOR HO Date: 2022-09-06 15:02 Normal [facility] XR SHOULDER RT 1 V EXAM: [...] HÉCTOR HO Date: 2022-09-06 15:01 Normal [facility] XR SHOULDER RT 1 V EXAM: [...] HÉCTOR HO Date: 2022-09-06 15:00 Normal [facility] XR SHOULDER RT 1 V EXAM: XR SHOULDER RT 1 V HISTORY: Pain ; postreduction imaging COMPARISON: Prior shoulder x-rays from same date TECHNIQUE: FINDINGS: Humeral head is positioned inferior to the glenoid. Stable displaced fracture from the greater tuberosity. IMPRESSION: 1. Persistent anterior inferior glenohumeral dislocation and greater tuberosity fracture. Electronically authenticated by: HÉCTOR HO Date: 2022-09-06 14:56 Normal [facility] XR SHOULDER RT 1 V EXAM: [...] HÉCTOR HO Date: 2022-09-06 14:55 Normal [facility] LITHIUMon 08-23-2022 [place] (Eskalith(R)), Serum 0.9 mmol/L Normal 0.5-1.2 [facility] Comment on above: Result Comment: A co ncentration of 0.5-0.8 mmol/L is advised for long-term use; concentrations of up to 1.2 mmol/L may be necessary during acute treatment. Detection Limit = 0.1 <0.1 indicates None Detected Performed By: #### L ITHIUM ####[facility] [address] [address]Dr. Beny Johnson CREATININEon 08-22-2022 Creatinine [Mass/Vol] 1.17 mg/dL Critically high 0.55-1.02 [facility] Comment on above: Performed By: #### C ELA ####[facility] [address] [address]Dr. Beny Johnson EGFR-AF LEBANESE 56 mL/min/1.73m2 Critically low >=60 [facility] Comment on above: Performed By: #### C ELA ####[facility] [address] [place], [place] [address]Dr. Beny Johnson EGFR-NON AF LEBANESE 46 mL/min/1.73m2 Critically low >=60 [facility] Comment on above: Performed By: #### C ELA ####[facility] [address] [place], [place] [address]Dr. Beny Johnson LITHIUMon 08-04-2022 [place] (Eskalith(R)), Serum 1.1 mmol/L Normal 0.5-1.2 [facility] Comment on above: Result Comment: A co ncentration of 0.5-0.8 mmol/L is advised for long-term use; concentrations of up to 1.2 mmol/L may be necessary during acute treatment. Detection Limit = 0.1 <0.1 indicates None Detected Performed By: #### L ITHIUM ####[facility] [address] [place], [place] [address]Dr. Beny Johnson CREATININEon 08-03-2022 Creatinine [Mass/Vol] 1.36 mg/dL Critically high 0.55-1.02 [facility] Comment on above: Performed By: #### C ELA, TSH ####[facility] [address] [place], [place] [address]Dr. Beny Johnson EGFR-AF LEBANESE 47 mL/min/1.73m2 Critically low >=60 [facility] Comment on above: Performed By: #### C ELA, TSH ####[facility] [address] [place], [place] [address]Dr. Beny Johnson EGFR-NON AF LEBANESE 39 mL/min/1.73m2 Critically low >=60 [facility] Comment on above: Performed By: #### C ELA, TSH ####[facility] [address] [place], [place] [address]Dr. Beny Johnson TSHon 08-03-2022 TSH 0.901 uIU/mL Normal 0.358-3.74 0 [facility] Comment on above: Performed By: #### C ELA, TSH ####[facility] [address] [place], [place] [address]EyLore Johnson Outside Recordson 10-25-2021 Outside Records [id number]: 127 Normal [facility] Consent for Procedure/Surger yon 10-13-2021 Consent for Procedure/Surgery [id number] :127 Normal [facility] Creatinineon 08-01-2021 Creatinine [Mass/Vol] 0.98 mg/dL High 0.50 - 0.90 mg/dL [facility] GFR >60 >60 mL/min [facility] GFR Non- 57 mL/min Low >60 [facility] Interpretation and review of laboratory results Abnormal [facility] Laboratory - Chemistry and C hemistry - challengeon 08-01-2021 GFR/1.73 sq M.predicted MDRD (S/P/Bld) [Vol rate/Area] [facility] Comment on above: Average GFR for 60-6 9 years old: 85 mL/min/1.73sq m Chronic Kidney Disease: <60 mL/min/1.73sq m Kidney failure: <15 mL/min/1.73sq m eGFR calculated using average adult body mass. Additional eGFR calculator available at: http://www.[employer]/multiple_crcl_2012.htm Stage 1: Some kidney damage normal GFR [...] signal along the mediastinum is likely benign. [facility] Radiology Study observation (narrative) [employer] Phone: MRI BREAST BILATERAL W CONTR ASTOrdered By: Dee Soto on 08-01-2021 [employer] Phone: LINDA ERYN DIGITAL DIAGNOSTIC BILATERALOrdered By: She Spencer on 11-11-2020 1. No mammographic evidence of malignancy. BIRADS: BIRADS - CATEGORY 2 Benign Findings. Normal interval follow-up is recommended in 12 months. OVERALL ASSESSMENT - BENIGN A letter of notification will be sent to the patient regarding the results. The [employer] recommends annual mammograms for women 40 years and older. [employer] Phone: EXAMINATION: DIAGNOS TIC DIGITAL BILATERAL BREASTS [...] dated June 08, 2020 is not visible. [employer] Phone: [place], p[place] Incoming Radiant Results From [place] - 11/11/2020 10:09 PM EDT EXAMINATION: DIAGNOSTIC [...] mammograms for women 40 years and older. [employer] Phone: [employer] Phone: [place] Levelon 07-21-2020 [place] Date Last Dose NOT REPORTED [employer] Phone: [place] Dose Amount NOT REPORTED [facility] Work Phone: [place] Dose Time NOT REPORTED [facility] Work [facility]: [place] Lvl 0.9 mmol/L 0.6 - 1.2 mmol/L [facility]: Lipid Panelon 07-18-2020 Cholesterol [Mass/Vol] 151 mg/dL <200 [facility] Work Phone: Comment on above: Cholesterol Guidelines: <200 Desirable 200-240 Borderline >240 Undesirable Cholesterol in HDL [Mass/Vol] 42 mg/dL >40 [facility] Phone: Comment on above: HDL Guidelines: <40 Undesirable 40-59 Borderline >59 Desirable Cholesterol in LDL [Mass/Vol] 79 mg/dL 0 - 130 mg/dL [facility] Phone: Comment on above: LDL Guidelines: <100 Desirable 100-129 Near to/above Desirable 130-159 Borderline >159 Undesirable Direct (measured) LDL and calculated LDL are not interchangeable tests. Cholesterol in VLDL [Mass/Vol] NOT REPORTED 1 - 30 mg/dL [facility] Phone: Cholesterol.total/Judy sterol in HDL [Mass ratio] 3.6 {ratio} <5 [facility] Phone: Interpretation and review of laboratory results Abnormal [employer] Phone: Triglyceride [Mass/Vol] 151 mg/dL High <150 [facility] Work Phone: Comment on above: Triglyceride Guidelines: <150 Desirable 150-199 Borderline 200-499 High >499 Very high Based on AHA Guidelines for fasting triglyceride, March 2012. [place] Levelon 07-14-2020 Interpretation and review of laboratory results Abnormal [employer] Phone: [place] Date Last Dose NOT REPORTED [facility] Work Phone: [place] Dose Amount NOT REPORTED [facility] Work Phone: [place] Dose Time NOT REPORTED [facility] Work Phone: [place] Lvl 1.6 mmol/L Critically high 0.6 - 1.2 mmol/L [facility] [employer] Work Phone: CBC Auto Differentialon Basophils (Bld) [#/Vol] 0.06 10*3/uL [place], [place] Basophils/100 WBC (Bld) 1 % 0 - 2 % [place], [place] Differential Type NOT REPORTED [place] Eosinophils (Bld) [#/Vol] 0.22 10*3/uL [place] Eosinophils/100 WBC (Bld) 4 % 1 - 4 % [place] Erythrocyte distribution width (RBC) [Ratio] 12.7 % 11.8 - 14.4 % [place] Hematocrit (Bld) [Volume fraction] 43.2 % 36.3 - 47.1 % [place] Hemoglobin (Bld) [Mass/Vol] 12.6 g/dL 11.9 - 15.1 g/dL [place] Immature granulocytes (Bld) [#/Vol] 10*3/uL [place] Immature granulocytes (Bld) [#/Vol] 0 % 0 [place] Interpretation and review of laboratory results Abnormal [place] Lymphocytes (Bld) [#/Vol] 1.92 10*3/uL [place] Lymphocytes/100 WBC (Bld) 36 % 24 - 43 % [place] MCH (RBC) [Entitic mass] 32.0 pg 25.2 - 33.5 pg [place] MCHC (RBC) [Mass/Vol] 29.2 g/dL 28.4 - 34.8 g/dL [place] MCV (RBC) [Entitic vol] 109.6 fL High 82.6 - 102.9 fL [place] Monocytes (Bld) [#/Vol] 0.46 10*3/uL [place] Monocytes/100 WBC (Bld) 9 % 3 - 12 % [place] Platelet mean volume (Bld) [Entitic vol] 11.5 fL 8.1 - 13.5 fL [place] Platelets (Bld) [#/Vol] 256 10*3/uL [place] Platelets (Bld) [#/Vol] NOT REPORTED [place] RBC (Bld) [#/Vol] 3.94 10*6/uL Low 3.95 - 5.11 m/uL [place] RBC morphology finding Nom (Bld) MACROCYTOSIS PRESENT [place] Segmented neutrophils/100 WBC (Bld) 50 % 36 - 65 % [place] Segs Absolute 2.66 [place] WBC (Bld) [#/Vol] 0.0 10*3/uL 0.0 per 100 WBC [place] WBC (Bld) [#/Vol] 5.3 10*3/uL [place] WBC Morphology NOT REPORTED [place] Comprehensive Metabolic Pane eusebia 07-08-2020 Albumin [Mass/Vol] 4.3 g/dL 3.5 - 5.2 g/dL [place] Albumin/Globulin [Mass ratio] 1.5 {ratio} [place] ALP [Catalytic activity/Vol] 129 U/L High 35 - 104 U/L [place] ALT [Catalytic activity/Vol] 19 U/L 5 - 33 U/L [place] Anion gap [Moles/Vol] 10 mmol/L 9 - 17 mmol/L [place] AST [Catalytic activity/Vol] 18 U/L <32 [place] Bilirubin Ql (U) 0.21 mg/dL Low 0.3 - 1.2 mg/dL [place] Bun/Cre Ratio NOT REPORTED [place] Calcium [Mass/Vol] 10.9 mg/dL High 8.6 - 10. 4 mg/dL [place] Chloride [Moles/Vol] 108 mmol/L High 98 - 10 7 mmol/L [place] CO2 [Moles/Vol] 21 mmol/L 20 - 31 mmol/L [place] Creatinine [Mass/Vol] 1.29 mg/dL High 0.5 - 0.9 mg/dL [place] GFR 51 mL/min Low >60 [place] GFR Non- 42 mL/min Low >60 [place] GFR/1.73 sq M predicted among non-blacks MDRD (S/P/Bld) [Vol rate/Area] NOT REPORTED [place] GFR/1.73 sq M predicted among non-blacks MDRD (S/P/Bld) [Vol rate/Area] [place] Comment on above: Average GFR for 60-6 9 years old: 85 mL/min/1.73sq m Chronic Kidney Disease: <60 mL/min/1.73sq m Kidney failure: <15 mL/min/1.73sq m eGFR calculated using average adult body mass. Additional eGFR calculator available at: http://www.[employer]/multiple_crcl_2011.htm Glucose [Mass/Vol] 88 mg/dL 70 - 99 mg/dL [place] Potassium [Moles/Vol] 3.9 mmol/L 3.7 - 5.3 mmol/L [place] Protein [Mass/Vol] 7.1 g/dL 6.4 - 8.3 g/dL [place] Sodium [Moles/Vol] 139 mmol/L 135 - 144 mmol/L [place] Urea nitrogen [Mass/Vol] 15 mg/dL 8 - 23 mg/dL [place] Laboratory - Chemistry and C hemistry - challengeOrdered By: Karla Clark on 07-08-2020 Albumin [Mass/Vol] 4.3 g/dL (3.5-5.2 ) [facility] Work Phone: Comment on above: Note: Responsible Ob bistro server: CCEV AUTOFILE (3002) ALT [Catalytic activity/Vol] 19 U/L (5-33 ) [facility] Work Phone: Comment on above: Note: Responsible Ob bistro server: [employer] (3002) Anion gap [Moles/Vol] 10 mmol/L (9-17 ) [facility] Work Phone: Comment on above: Note: Responsible Ob bistro server: CCEV AUTOFILE (3002) AST [Catalytic activity/Vol] 18 U/L (<32 ) [facility] Work Phone: Comment on above: Note: Responsible Ob bistro server: [employer] AUTOFILE (3002) Bilirubin [Mass/Vol] 0.21 mg/dL Low (0.3-1.2 ) [facility] Work Phone: Comment on above: Note: Responsible Ob bistro server: [employer] AUTOFILE (3002) Calcium [Mass/Vol] 10.9 mg/dL High (8.6-10.4 ) [facility] Work Phone: Comment on above: Note: Responsible Ob bistro server: [employer] (3002) Chloride [Moles/Vol] 108 mmol/L High (98-107 ) [facility] Work Phone: Comment on above: Note: Responsible Ob bistro server: [employer] (3002) Cholesterol [Mass/Vol] 136 mg/dL (<200 ) [facility] Work Phone: Comment on above: Note: Cholesterol Gu idelines:<200 Ndenxqjok135-298 Borderline>240 UndesirableResponsible Observer: [employer] (3002) Cholesterol.total/Judy sterol in HDL [Mass ratio] 3.0 {ratio} (<5 ) [facility] Work Phone: Comment on above: Note: Responsible Ob bistro server: [employer] (3002) CO2 [Moles/Vol] 21 mmol/L (20-31 ) [facility] Work Phone: Comment on above: Note: Responsible Ob bistro server: CCEV AUTOFILE (3002) Creatinine [Mass/Vol] 1.29 mg/dL High (0.50- 0.90 ) [facility] Work Phone: Comment on above: Note: Responsible Ob bistro server: C[employer]V AUTOFILE (3002) Glucose [Mass/Vol] 88 mg/dL (70-99 ) [facility] Work Phone: Comment on above: Note: Responsible Ob bistro server: C[employer]V AUTOFILE (3002) Magnesium [Mass/Vol] 46 mg/dL (>40 ) [facility] Work Phone: Comment on above: Note: HDL Guidelines :<40 Geqjixkklml56-04 Borderline>59 DesirableResponsible Observer: CCEV AUTOFILE (3002) Magnesium [Mass/Vol] 58 mg/dL (0-130 ) [facility] Work Phone: Comment on above: Note: LDL Guidelines :<100 Ouruqsvhd755-857 Near to/above Ttqwudbtg234-037 Borderline>159 UndesirableDirect (measured) LDL and calculated LDL are not interchangeable tests.Responsible Observer: [employer]V [employer]FILE (3002) Magnesium [Mass/Vol] 162 mg/dL High (<150 ) [facility] Work Phone: Comment on above: Note: Triglyceride G uidelines:<150 [id number] Weciqhedxl188-854 High>499 Very highBased on AHA Guidelines for fasting triglyceride, March 2012.Responsible Observer: [employer] (3002) Potassium [Moles/Vol] 3.9 mmol/L (3.7-5.3 ) [facility] Work Phone: Comment on above: Note: Responsible Ob bistro server: CCEV AUTOFILE (3002) Protein [Mass/Vol] 7.1 g/dL (6.4-8.3 ) [facility] Work Phone: Comment on above: Note: Responsible Ob bistro server: CCEV AUTOFILE (3002) Sodium [Moles/Vol] 139 mmol/L (135-144 ) [facility] Work Phone: Comment on above: Note: Responsible Ob bistro server: [employer] AUTOFILE (3002) Urea nitrogen [Mass/Vol] 15 mg/dL (8-23 ) [facility] Work Phone: Comment on above: Note: Responsible Ob bistro server: [employer] (3002) Laboratory - Hematology and Cell countsOrdered By: Karla Clark on 07-08-2020 Basophils/100 WBC (Bld) 1 % (0-2 ) [facility]: Comment on above: Note: Responsible Ob bistro server: XNV AUTOFILE (3018) Eosinophils (Bld) [#/Vol] 0.22 10*3/uL (0.00-0.44 ) [facility] Work Phone: Comment on above: Note: Responsible Ob bistro server: [employer] AUTOFILE (3018) Eosinophils/100 WBC (Bld) 4 % (1-4 ) [facility] Work Phone: Comment on above: Note: Responsible Ob bistro server: [employer] AUTOFILE (3018) Erythrocyte distribution width (RBC) [Ratio] 12.7 % (11.8-14.4 ) [facility] Work Phone: Comment on above: Note: Responsible Ob bistro server: [employer] AUTOFILE (3018) Hematocrit (Bld) [Volume fraction] 43.2 % (36.3-47.1 ) [facility] Work Phone: Comment on above: Note: Responsible Ob bistro server: [employer] AUTOFILE (3018) Hemoglobin (Bld) [Mass/Vol] 12.6 g/dL (11.9-15.1 ) [facility] Work Phone: Comment on above: Note: Responsible Ob bistro server: [employer] AUTOFILE (3018) Immature granulocytes/100 WBC (Bld) 0 % (0 ) [facility] Work Phone: Comment on above: Note: Responsible Ob bistro server: [employer] AUTOFILE (3018) Lymphocytes (Bld) [#/Vol] 1.92 10*3/uL (1.10-3.70 ) [facility] Work Phone: Comment on above: Note: Responsible Ob bistro server: [employer] AUTOFILE (3018) Lymphocytes/100 WBC (Bld) 36 % (24-43 ) [facility] Work Phone: Comment on above: Note: Responsible Ob bistro server: X[employer] AUTOFILE (3018) MCH (RBC) [Entitic mass] 32.0 pg (25.2-33.5 ) [facility] Work Phone: Comment on above: Note: Responsible Ob bistro server: [employer] AUTOFILE (3018) MCHC (RBC) [Mass/Vol] 29.2 g/dL (28.4- 34.8 ) [facility] Work Phone: Comment on above: Note: Responsible Ob bistro server: XNV AUTOFILE (3018) MCV (RBC) [Entitic vol] 109.6 fL High (82. 6-102. 9 ) [facility] Work Phone: Comment on above: Note: Responsible Ob bistro server: XNV AUTOFILE (3018) Monocytes (Bld) [#/Vol] 0.46 10*3/uL (0.1 0-1.20 ) [facility] Work Phone: Comment on above: Note: Responsible Ob bistro server: XNV AUTOFILE (3018) Monocytes/100 WBC (Bld) 9 % (3-12 ) [facility] Work [facility]: Comment on above: Note: Responsible Ob bistro server: XNV AUTOFILE (3018) Platelet mean volume (Bld) [Entitic vol] 11.5 fL (8.1-13.5 ) [facility] Work Phone: Comment on above: Note: Responsible Ob bistro server: XNV AUTOFILE (3018) Platelets (Bld) [#/Vol] 256 10*3/uL (138-453 ) [facility] Work Phone: Comment on above: Note: Responsible Ob bistro server: XNV AUTOFILE (3018) RBC (Bld) [#/Vol] 3.94 10*6/uL Low (3.95-5.11 ) [facility] Work Phone: Comment on above: Note: Responsible Ob bistro server: XNV AUTOFILE (3018) RBC morphology finding Nom (Bld) MACROCYTOSIS PRESENT [facility] Work Phone: Comment on above: Note: Responsible Ob bistro server: XNV AUTOFILE (3018) Segmented neutrophils/100 WBC (Bld) 50 % (36-65 ) [facility] Work Phone: Comment on above: Note: Responsible Ob bistro server: XNV AUTOFILE (3018) WBC (Bld) [#/Vol] 5.3 10*3/uL (3.5-11.3 ) [facility] Work Phone: Comment on above: Note: Responsible Ob bistro server: XNV AUTOFILE (3018) Laboratory - Microbiology an d Antimicrobial susceptibilityOrdered By: Karla Clark on 07-08-2020 Bacteria identified Cx Nom (Unsp spec) NOT REPORTED (NONE ) [facility] Work Phone: Laboratory - Specimen inform ationOrdered By: Karla Clark on 07-08-2020 Color (U) YELLOW (YEL ) [facility] Work Phone: Comment on above: Note: Responsible Ob bistro server: LETY MARTÍNEZ (162) Laboratory - UrinalysisOrder ed By: Karla Clark on 07-08-2020 Amorphous sediment LM Ql (Urine sed) NOT REPORTED (NONE ) [facility] Work Phone: Crystals LM Nom (Urine sed) NOT REPORTED /HPF (NONE ) [facility] Work Phone: Epithelial cells LM Ql (Urine sed) 0 TO 2 /HPF (0-5 ) [facility] Work Phone: Comment on above: Note: Responsible Ob bistro server: LETY MARTÍNEZ (548) Yeast LM Ql (Urine sed) NOT REPORTED (NONE ) [facility] Work Phone: Lipid, Fastingon 07-08-2020 Cholesterol [Mass/Vol] 136 mg/dL <200 [place], [place] Comment on above: Cholesterol Guidelines: <200 Desirable 200-240 Borderline >240 Undesirable Cholesterol in HDL [Mass/Vol] 46 mg/dL >40 [place] Comment on above: HDL Guidelines: <40 Undesirable 40-59 Borderline >59 Desirable Cholesterol in LDL [Mass/Vol] 58 mg/dL 0 - 130 mg/dL [place] Comment on above: LDL Guidelines: <100 Desirable 100-129 Near to/above Desirable 130-159 Borderline >159 Undesirable Direct (measured) LDL and calculated LDL are not interchangeable tests. Cholesterol in VLDL [Mass/Vol] NOT REPORTED High 1 - 30 mg/dL [place] Cholesterol.total/Judy sterol in HDL [Mass ratio] 3 {ratio} <5 [place] Triglyceride, Fasting 162 mg/dL High <150 [place], [place] Comment on above: Triglyceride Guidelines: <150 Desirable 150-199 Borderline 200-499 High >499 Very high Based on AHA Guidelines for fasting triglyceride, March 2012. Microscopic Urinalysison Amorphous, UA NOT REPORTED None [place], [place] Bacteria, UA NOT REPORTED None [place], [place] Casts UA NOT REPORTED [place] Crystals, UA NOT REPORTED None /HPF [place] Epithelial Cells UA 0 TO 2 [place] Mucus, UA NOT REPORTED None [place] Other Observations UA NOT REPORTED NOT REQ. [place] RBC (U) [#/Vol] None [place], [place] Comment on above: Reference range defi aggie for non-centrifuged specimen. Renal Epithelial, UA NOT REPORTED 0 /HPF [place] Trichomonas, UA NOT REPORTED None [place], [place] WBC, UA 0 TO 2 [place] Yeast, UA NOT REPORTED None [place] - [place] No Panel InformationOrdered By: Karla Clark on 02-05-2021 (cont.) See Note [facility] Work Phone: Comment on above: Note: Average GFR fo r 60-69 years old:85 mL/min/1.73sq mChronic Kidney Disease:<60 mL/min/1.73sq mKidney failure:<15 mL/min/1.73sq meGFR calculated using average adult body mass. Additional eGFR calculatoravailable at:http://www.[employer]/multiple_crcl_2012.htmResponsible Observer: CCEV AUTOFILE (3002) ----- See Note [facility] Work Phone: Comment on above: Note: Responsible Ob bistro server: LETY MARTÍNEZ (909) Abs. Basophil 0.06 k/uL (0.00-0.20 ) [facility] Work Phone: Comment on above: Note: Responsible Ob bistro server: XNV AUTOFILE (3018) Abs.Imm.Granulocyte <0.03 k/uL (0.00-0. 30 ) [facility] Work Phone: Comment on above: Note: Responsible Ob bistro server: XNV AUTOFILE (3018) Abs.Neutrophil (Seg) 2.66 k/uL (1.50-8 .10 ) [facility] Work Phone: Comment on above: Note: Responsible Ob bistro server: XNV AUTOFILE (3018) Acetoacetic Acid,Ur Negative (NEG ) [facility] Work Phone: Comment on above: Note: Responsible Ob bistro server: LETY MARTÍNEZ (909) Albumin/Glob Ratio 1.5 (1.0-2.5 ) [facility] Work Phone: Comment on above: Note: Responsible Ob bistro server: CCEV AUTOFILE (3002) Alkaline Phos 129 U/L High (35-104 ) [facility] Work Phone: Comment on above: Note: Responsible Ob bistro server: CCEV AUTOFILE (3002) Auto Diff Performed NOT REPORTED [facility] Work Phone: Bilirubin, SemiQt,Ur Negative (NEG ) [facility] Work Phone: Comment on above: Note: Responsible Ob bistro server: LETY MARTÍNEZ (701) BUN/CRE Ratio NOT REPORTED (9-20 ) [facility] Work Phone: Casts NOT REPORTED /LPF (0-8 ) [facility] Work Phone: Cholesterol,VLDL NOT REPORTED mg/dL (1-30 ) [facility] Work Phone: Comment NOT REPORTED [facility] Work Phone: Epithelial, Renal NOT REPORTED /HPF (0 ) [facility] Work Phone: GFR, Amer 51 mL/min Low (>60 ) [facility] Work Phone: Comment on above: Note: Responsible Ob bistro server: CCEV AUTOFILE (3002) GFR,non Amer 42 mL/min Low (>60 ) [facility] Work Phone: Comment on above: Note: Responsible Ob bistro server: CCEV AUTOFILE (3002) Glucose,Semi-qnt,Ur Negative (NEG ) [facility] Work Phone: Comment on above: Note: Responsible Ob bistro server: LETY MARTÍNEZ (267) Hemoglobin, Ur Negative (NEG ) [facility] Work Phone: Comment on above: Note: Responsible Ob bistro server: LETY MARTÍNEZ (781) Leuckocyte Esterase SMALL Abnormal (NEG ) [facility] Work Phone: Comment on above: Note: Responsible Ob bistro server: LETY MARTÍNEZ (771) Mucus Strands NOT REPORTED (NONE ) [facility] Work Phone: Nitrite,Ur Negative (NEG ) [facility] Work Phone: Comment on above: Note: Responsible Ob bistro server: LETY MARTÍNEZ (467) NRBC Automated 0.0 per_100_WBC (0.0 ) [facility] Work Phone: Comment on above: Note: Responsible Ob bistro server: XNV AUTOFILE (3075) Other Observations NOT REPORTED (NREQ ) [facility] Work Phone: Performing Lab: see note [facility] Work Phone: Comment on above: Note: MICHELLE Diaz Ramona Danni guille [address] [facility] [address] PH,Ur 7.5 (5.0-8.0 ) [facility] Work Phone: Comment on above: Note: Responsible Ob bistro server: LETY MARTÍNEZ (991) Platelet Estimate NOT REPORTED [facility] Work Phone: Protein, Semi-qnt,Ur Negative (NEG ) [facility] Work Phone: Comment on above: Note: Responsible Ob bistro server: LETY MARTÍNEZ (136) Reported Physicians See Note [facility] Work Phone: Comment on above: Note: Reported Physi cians:Ordering: Cotton, AimeeAttending: Cotton, AimeeReferring: Cotton, Karla Spec. [place],Ur 1.006 (1.005-1.0 30 ) [facility] Work Phone: Comment on above: Note: Responsible Ob bistro server: LETY MARTÍNEZ (951) Staging: NOT REPORTED [facility] Work Phone: Trichomonas NOT REPORTED (NONE ) [facility] Work Phone: Turbidity CLEAR (CLEAR ) [facility] Work Phone: Comment on above: Note: Responsible Ob bistro server: LETY MARTÍNEZ (985) Urine RBC's None /HPF (0-4 ) [facility] Work Phone: Comment on above: Note: Reference rang e defined for non-centrifuged specimen.Responsible Observer: LETY MARTÍNEZ (909) Urine WBC's 0 TO 2 /HPF (0-5 ) [facility] Work Phone: Comment on above: Note: Responsible Ob bistro server: LETY MARTÍNEZ (978) Urobilinogen,Ur Normal (NORM ) [facility] Work Phone: Comment on above: Note: Responsible Ob bistro server: LETY MARTÍNEZ (441) WBC Morphology NOT REPORTED [facility] Work Phone: Otheron 07-08-2020 Interpretation and review of laboratory results Abnormal [place] Urinalysis Reflex to Culture on 07-08-2020 Bilirubin Urine Negative NEGATIVE [place] Color, UA YELLOW YELLOW [place], [place] Glucose, Ur Negative NEGATIVE [place] Interpretation and review of laboratory results Abnormal [place] Ketones Ql (U) Negative NEGATIVE [place] Leukocyte esterase Test strip Ql (U) SMALL Abnormal NEGATIVE [place] Nitrite, Urine Negative NEGATIVE [place] pH, UA 7.5 [place] Protein (U) [Mass/Vol] Negative NEGATIVE [place] Specific [place], UA 1.006 [place], [place] Turbidity UA CLEAR CLEAR [place] Urinalysis Comments NOT REPORTED [place] Urine Hgb Negative NEGATIVE [place] Urobilinogen, Urine Normal Normal [place] BUNon 06-30-2020 Urea nitrogen [Mass/Vol] 17 mg/dL 8 - 23 mg/dL [place] Creatinine, Serumon 06-30-19 21 Creatinine [Mass/Vol] 1.26 mg/dL High 0.5 - 0.9 mg/dL [place] GFR 52 mL/min Low >60 [place] GFR Non- 43 mL/min Low >60 [place] Interpretation and review of laboratory results Abnormal [place] Laboratory - Chemistry and C hemistry - challengeOrdered By: Karla Clark on 06-30-2020 Creatinine [Mass/Vol] 1.26 mg/dL High (0.50- 0.90 ) [facility] Work Phone: Comment on above: Note: Responsible Ob bistro server: CET ONE AUTOFILE (3005) Urea nitrogen [Mass/Vol] 17 mg/dL (8-23 ) [facility] Work Phone: Comment on above: Note: Responsible Ob bistro server: CET ONE AUTOFILE (3005) Laboratory - Microbiology an d Antimicrobial susceptibilityOrdered By: Karla Clark on 06-30-2020 SARS-CoV-2 (COVID-19) RNA MARCIO+probe Ql (Resp) Not detected (Not Detected ) [facility] Work Phone: Comment on above: Note: [...] of in vitro diagnostic tests for detection [id number] virus and/or diagnosis of COVID-19 infectionunder section [...] Unremarkable exam. N o significant pituitary mass. [facility] MRI OF THE BRAIN WITHOUT [...] The soft tissues demonstrate no acute abnormality. [place], [place] Perry, Mhpn Incoming Radiant Results From SpectraRep/fotopedia - 06/30/2020 4:29 PM EST EXAMINATION: MRI [...] IMPRESSION: Unremarkable exam. No significant pituitary mass. [place] Metabolic Panelon 06-30-2020 GFR/1.73 sq M predicted among non-blacks MDRD (S/P/Bld) [Vol rate/Area] [place] Comment on above: Average GFR for 60-6 9 years old: 85 mL/min/1.73sq m Chronic Kidney Disease: <60 mL/min/1.73sq m Kidney failure: <15 mL/min/1.73sq m eGFR calculated using average adult body mass. Additional eGFR calculator available at: http://www.[employer]/multiple_crcl_2012.htm Stage 1: Some kidney damage normal GFR Stage 2: Mild kidney damage GFR 60-89 Stage 3: Moderate kidney damage GFR 30-59 Stage 4: Severe kidney damage GFR 15-29 Stage 5: Severe kidney damage GFR <15 ESRD - chronic treatment by dialysis or transplant No Panel InformationOrdered By: Karla Clark on 06-30-2020 (cont.) See Note [facility] Work Phone: Comment on above: Note: Average GFR fo r 60-69 years old:85 mL/min/1.73sq mChronic Kidney Disease:<60 mL/min/1.73sq mKidney failure:<15 mL/min/1.73sq meGFR calculated using average adult body mass. Additional eGFR calculatoravailable at:http://www.[employer]/multiple_crcl_2012.htmResponsible Observer: CET ONE AUTOFILE (3005) GFR, Amer 52 mL/min Low (>60 ) [facility] Work Phone: Comment on above: Note: Responsible Ob bistro server: CET ONE AUTOFILE (3005) GFR,non Amer 43 mL/min Low (>60 ) [facility] Work Phone: Comment on above: Note: Responsible Ob bistro server: CET ONE AUTOFILE (3005) Performing Lab: see note [facility] Work Phone: Comment on above: Note: [facility] [address] [place] [address] Reported Physicians See Note [facility] Work Phone: Comment on above: Note: Reported Physi cians:Ordering: Cotton, AimeeAttending: Cotton, AimeeReferring: Cotton, Karla Staging: See Note [facility] Work Phone: Comment on above: Note: Stage 1: Some kidney damage normal GFRStage 2: Mild kidney damage GFR 60-89Stage 3: Moderate kidney damage GFR 30-59Stage 4: Severe kidney damage GFR 15-29Stage 5: Severe kidney damage GFR <15ESRD - chronic treatment by dialysis or transplantResponsible Observer: LUIZ MALDONADO AUTOFILE ([id number]) Surgical Pathologyon 021 Surgical Pathology Report -- [...] SURGICAL PATHOLOGY CONSULTATION Patient Name: GAIL ALMEIDA [facility] Rec: [id number] Path Number: [id number] [facility] CONSULTING PATHOLOGISTS [facility] ANATOMIC PATHOLOGY [address] [place] [address]. [place], [place] [address] [place], [place] Otheron 06-08-2020 Addendum by Del Ross [...] Return to yearly screening schedule is recommended. [place] Technically successf ul ultrasound guided core biopsy of subtle sonographic abnormality in the posterior 4 o'clock left breast near the chest wall and coil shapedclip marker placement as described above. BIRADS: ZW - Pathology pending. [place] EXAMINATION: ULTRASOUND-GUIDED LEFT BREAST BIOPSY WITH [...] placement imaging performed in a separate room. [place] Perry, Angelica Incoming Radiant Results From SpectraRep/fotopedia - 06/08/2020 11:19 AM EST EXAMINATION: ULTRASOUND-GUIDED [...] described above. BIRADS: ZW - Pathology pending. [place] Prolactinon 06-06-2020 Interpretation and review of laboratory results Abnormal [place] Prolactin 223 ug/L High 4.79 - 23.3 ug/L [place] Comment on above: The presence of [...] patient at the time of service. A c s s representative from the radiology department will be contacting your office and assisting the patient in getting appropriate follow-up. [facility] EXAMINATION: DIAGNOS TIC DIGITAL BILATERAL [...] sampling of this location is advised. [facility] Perry, Mhpn Incoming Radiant Results From SpectraRep/fotopedia - 04/04/2020 5:42 PM EST EXAMINATION: DIAGNOSTIC [...] patient at the time of service. A c s s representative from the radiology department will be contacting your office and assisting the patient in getting appropriate follow-up. [place] BUNon 03-31-2020 Urea nitrogen [Mass/Vol] 21 mg/dL 8 - 23 mg/dL [place] Creatinine, Serumon 03-31-20 20 Creatinine [Mass/Vol] 1.1 mg/dL High 0.5 - 0.9 mg/dL [place] GFR >60 >60 mL/min [place] GFR Non- 50 mL/min Low >60 [place] GFR/1.73 sq M predicted among non-blacks MDRD (S/P/Bld) [Vol rate/Area] [place] Comment on above: Average GFR for 60-6 9 years old: 85 mL/min/1.73sq m Chronic Kidney Disease: <60 mL/min/1.73sq m Kidney failure: <15 mL/min/1.73sq m eGFR calculated using average adult body mass. Additional eGFR calculator available at: http://www.[employer]/multiple_crcl_2012.htm GFR/1.73 sq M predicted among non-blacks MDRD (S/P/Bld) [Vol rate/Area] NOT REPORTED [place] Interpretation and review of laboratory results Abnormal [place] Metabolic Panelon 03-31-2020 Creatinine [Mass/Vol] 1.10 mg/dL High (0.50- 0.90 ) [facility] Work Phone: Comment on above: Note: Responsible Ob bistro server: CEEV AUTOFILE (3003) Urea nitrogen [Mass/Vol] 21 mg/dL (8-23) [facility] Work Phone: Comment on above: Note: Responsible Ob bistro server: CEEV AUTOFILE (3003) Otheron 03-31-2020 (cont.) See Note [facility] Work Phone: Comment on above: Note: Average GFR fo r 60-69 years old:85 mL/min/1.73sq mChronic Kidney Disease:<60 mL/min/1.73sq mKidney failure:<15 mL/min/1.73sq meGFR calculated using average adult body mass. Additional eGFR calculatoravailable at:http://www.[employer]/multiple_crcl_2012.htmResponsible Observer: CEEV AUTOFILE (3003) GFR, Amer >60 mL/min (>60) [facility] Work Phone: Comment on above: Note: Responsible Ob bistro server: CEEV AUTOFILE (3003) GFR,non Amer 50 mL/min Low (>60) [facility] Work Phone: Comment on above: Note: Responsible Ob bistro server: CEEV AUTOFILE (3003) Performing Lab: see note [facility] Work Phone: Comment on above: Note: [facility] [place] [id number] [place] [id number] Reported Physicians See Note [facility] Work Phone: Comment on above: Note: Reported Physi cians:Ordering: Cotton, AimeeAttending: Cotton, AimeeReferring: Cotton, Karla Staging: NOT REPORTED [facility] Work Phone: CBC Auto Differentialon - Basophils (Bld) [#/Vol] 0.06 10*3/uL [facility] [place] Basophils/100 WBC (Bld) 1 % 0 - 2 % [facility] Differential Type NOT REPORTED [facility] [place] Eosinophils (Bld) [#/Vol] 0.15 10*3/uL [facility] [place] Eosinophils/100 WBC (Bld) 3 % 1 - 4 % [facility] [place] Erythrocyte distribution width (RBC) [Ratio] 13.2 % 11.8 - 14.4 % [place] Hematocrit (Bld) [Volume fraction] 42.7 % 36.3 - 47.1 % [place] Hemoglobin (Bld) [Mass/Vol] 12.6 g/dL 11.9 - 15.1 g/dL [place] Immature granulocytes (Bld) [#/Vol] 0 % 0 [place] Immature granulocytes (Bld) [#/Vol] 10*3/uL [place] Interpretation and review of laboratory results Abnormal [place] Lymphocytes (Bld) [#/Vol] 1.57 10*3/uL [place] Lymphocytes/100 WBC (Bld) 29 % 24 - 43 % [place] MCH (RBC) [Entitic mass] 32.1 pg 25.2 - 33.5 pg [place] MCHC (RBC) [Mass/Vol] 29.5 g/dL 28.4 - 34.8 g/dL [place] MCV (RBC) [Entitic vol] 108.7 fL High 82.6 - 102.9 fL [place] Monocytes (Bld) [#/Vol] 0.45 10*3/uL [place] Monocytes/100 WBC (Bld) 8 % 3 - 12 % [place] Platelet mean volume (Bld) [Entitic vol] 11.1 fL 8.1 - 13.5 fL [place] Platelets (Bld) [#/Vol] NOT REPORTED [place] Platelets (Bld) [#/Vol] 259 10*3/uL [place] RBC (Bld) [#/Vol] 3.93 10*6/uL Low 3.95 - 5.11 m/uL [place] RBC morphology finding Nom (Bld) MACROCYTOSIS PRESENT [place] Segmented neutrophils/100 WBC (Bld) 59 % 36 - 65 % [place] Segs Absolute 3.12 [place] WBC (Bld) [#/Vol] 5.4 10*3/uL [place] WBC (Bld) [#/Vol] 0.0 10*3/uL 0.0 per 100 WBC [place] WBC Morphology NOT REPORTED [place] [facility] 03-10-2020 Cholesterol [Mass/Vol] 139 mg/dL (<200) [facility] Work Phone: Comment on above: Note: Cholesterol Gu idelines:<200 [id number] Borderline>240 UndesirableResponsible Observer: CCEV AUTOFILE (3002) Comprehensive Metabolic Pane eusebia 03-10-2020 Albumin [Mass/Vol] 4.3 g/dL 3.5 - 5.2 g/dL [place] Albumin/Globulin [Mass ratio] 1.9 {ratio} [place] ALP [Catalytic activity/Vol] 136 U/L High 35 - 104 U/L [place] ALT [Catalytic activity/Vol] 50 U/L High 5 - 33 U/L [place] Anion gap [Moles/Vol] 12 mmol/L 9 - 17 mmol/L [place] AST [Catalytic activity/Vol] 28 U/L <32 [place] Bilirubin Ql (U) 0.18 mg/dL Low 0.3 - 1.2 mg/dL [place] Bun/Cre Ratio NOT REPORTED [facility] [place] [place] Calcium [Mass/Vol] 10.7 mg/dL High 8.6 - 10. 4 mg/dL [place] Chloride [Moles/Vol] 109 mmol/L High 98 - 10 7 mmol/L [place] CO2 [Moles/Vol] 19 mmol/L Low 20 - 31 mmol/L [place] Creatinine [Mass/Vol] 1.13 mg/dL High 0.5 - 0.9 mg/dL [place] GFR 59 mL/min Low >60 [place] GFR Non- 49 mL/min Low >60 [place] GFR/1.73 sq M predicted among non-blacks MDRD (S/P/Bld) [Vol rate/Area] [place] Comment on above: Average GFR for 60-6 9 years old: 85 mL/min/1.73sq m Chronic Kidney Disease: <60 mL/min/1.73sq m Kidney failure: <15 mL/min/1.73sq m eGFR calculated using average adult body mass. Additional eGFR calculator available at: http://www.[employer]/multiple_crcl_2012.htm GFR/1.73 sq M predicted among non-blacks MDRD (S/P/Bld) [Vol rate/Area] NOT REPORTED [place] Glucose [Mass/Vol] 87 mg/dL 70 - 99 mg/dL [place] Interpretation and review of laboratory results Abnormal [place] Potassium [Moles/Vol] 4.4 mmol/L 3.7 - 5.3 mmol/L [place] Protein [Mass/Vol] 6.6 g/dL 6.4 - 8.3 g/dL [place] Sodium [Moles/Vol] 140 mmol/L 135 - 144 mmol/L [place] Urea nitrogen [Mass/Vol] 21 mg/dL 8 - 23 mg/dL [place] Hematologyon 03-10-2020 Basophils/100 WBC (Bld) 1 % (0-2) [facility] Comment on above: Note: Responsible Ob bistro server: XNV AUTOFILE (3018) Eosinophils (Bld) [#/Vol] 0.15 10*3/uL (0.00-0.44 ) [facility] Work Phone: Comment on above: Note: Responsible Ob bistro server: XNV AUTOFILE (3018) Eosinophils/100 WBC (Bld) 3 % (1-4) [facility] Work Phone: Comment on above: Note: Responsible Ob bistro server: XNV AUTOFILE (3018) Hematocrit (Bld) [Volume fraction] 42.7 % (36.3-47.1 ) [facility] Work Phone: Comment on above: Note: Responsible Ob bistro server: XNV AUTOFILE (3018) Hemoglobin (Bld) [Mass/Vol] 12.6 g/dL (11.9-15.1 ) [facility] Work Phone: Comment on above: Note: Responsible Ob bistro server: XNV AUTOFILE (3018) Lymphocytes (Bld) [#/Vol] 1.57 10*3/uL (1.10-3.70 ) [facility] Work Phone: Comment on above: Note: Responsible Ob bistro server: XNV AUTOFILE (3018) Lymphocytes/100 WBC (Bld) 29 % (24-43) [facility] Work Phone: Comment on above: Note: Responsible Ob bistro server: XNV AUTOFILE (3018) MCH (RBC) [Entitic mass] 32.1 pg (25.2-33.5 ) [facility] Work Phone: Comment on above: Note: Responsible Ob bistro server: XNV AUTOFILE (3018) MCV (RBC) [Entitic vol] 108.7 fL High (82. 6-102. 9) [facility] Work Phone: Comment on above: Note: Responsible Ob bistro server: XNV AUTOFILE (3018) Monocytes (Bld) [#/Vol] 0.45 10*3/uL (0.1 0-1.20 ) [facility] Work Phone: Comment on above: Note: Responsible Ob bistro server: XNV AUTOFILE (3018) Monocytes/100 WBC (Bld) 8 % (3-12) [facility] Comment on above: Note: Responsible Ob bistro server: XNV AUTOFILE (3018) Platelets (Bld) [#/Vol] NOT REPORTED [facility] Work Phone: Platelets (Bld) [#/Vol] 259 10*3/uL (138-453) [facility] Work Phone: Comment on above: Note: Responsible Ob bistro server: XNV AUTOFILE (3018) RBC (Bld) [#/Vol] 3.93 10*6/uL Low (3.95-5.11 ) [facility] Work Phone: Comment on above: Note: Responsible Ob bistro server: XNV AUTOFILE (3018) RBC morphology finding Nom (Bld) MACROCYTOSIS PRESENT [facility] Work Phone: Comment on above: Note: Responsible Ob bistro server: XNV AUTOFILE (3018) WBC (Bld) [#/Vol] 5.4 10*3/uL (3.5-11.3) [facility] Work Phone: Comment on above: Note: Responsible Ob bistro server: XNV AUTOFILE (3018) WBC (Bld) [#/Vol] 0.0 per_100_WBC (0.0) [facility] Work Phone: Comment on above: Note: Responsible Ob bistro server: XNV AUTOFILE (3018) Lipid, Fastingon 03-10-2020 Cholesterol [Mass/Vol] 139 mg/dL <200 [place] Comment on above: Cholesterol Guidelines: <200 Desirable 200-240 Borderline >240 Undesirable Cholesterol in HDL [Mass/Vol] 46 mg/dL >40 [place] Comment on above: HDL Guidelines: <40 Undesirable 40-59 Borderline >59 Desirable Cholesterol in LDL [Mass/Vol] 73 mg/dL 0 - 130 mg/dL [place] Comment on above: LDL Guidelines: <100 Desirable 100-129 Near to/above Desirable 130-159 Borderline >159 Undesirable Direct (measured) LDL and calculated LDL are not interchangeable tests. Cholesterol in VLDL [Mass/Vol] NOT REPORTED 1 - 30 mg/dL [place] Cholesterol.total/Judy sterol in HDL [Mass ratio] 3 {ratio} <5 [place], [place] Triglyceride, Fasting 102 mg/dL <150 [place], [place] Comment on above: Triglyceride Guidelines: <150 Desirable 150-199 Borderline 200-499 High >499 Very high Based on AHA Guidelines for fasting triglyceride, March 2012. Metabolic Panelon 03-10-2020 Albumin [Mass/Vol] 4.3 g/dL (3.5-5.2) [facility] Work Phone: Comment on above: Note: Responsible Ob bistro server: CCEV AUTOFILE (3002) ALT [Catalytic activity/Vol] 50 U/L High (5-33) [facility] Work Phone: Comment on above: Note: Responsible Ob bistro server: CCEV AUTOFILE (3002) Anion gap [Moles/Vol] 12 mmol/L (9-17) [facility] Work Phone: Comment on above: Note: Responsible Ob bistro server: CCEV AUTOFILE (3002) AST [Catalytic activity/Vol] 28 U/L (<32) [facility] Work Phone: Comment on above: Note: Responsible Ob bistro server: CCEV AUTOFILE (3002) Bilirubin [Mass/Vol] 0.18 mg/dL Low (0.3-1.2) [facility] Work Phone: Comment on above: Note: Responsible Ob bistro server: CCEV AUTOFILE (3002) Calcium [Mass/Vol] 10.7 mg/dL High (8.6-10.4) [facility] Work Phone: Comment on above: Note: Responsible Ob bistro server: CCEV AUTOFILE (3002) Chloride [Moles/Vol] 109 mmol/L High (98-107) [facility] Work Phone: Comment on above: Note: Responsible Ob bistro server: CCEV AUTOFILE (3002) CO2 [Moles/Vol] 19 mmol/L Low (20-31) [facility] Work Phone: Comment on above: Note: Responsible Ob bistro server: CCEV AUTOFILE (3002) Creatinine [Mass/Vol] 1.13 mg/dL High (0.50- 0.90 ) [facility] Work Phone: Comment on above: Note: Responsible Ob bistro server: CCEV AUTOFILE (3002) Glucose [Mass/Vol] 87 mg/dL (70-99) [facility] Work Phone: Comment on above: Note: Responsible Ob bistro server: CCEV AUTOFILE (3002) Potassium [Moles/Vol] 4.4 mmol/L (3.7-5.3) [facility] Work Phone: Comment on above: Note: Responsible Ob bistro server: CCEV AUTOFILE (3002) Protein [Mass/Vol] 6.6 g/dL (6.4-8.3) [facility] Work Phone: Comment on above: Note: Responsible Ob bistro server: CCEV AUTOFILE (3002) Sodium [Moles/Vol] 140 mmol/L (135-144) [facility] Work Phone: Comment on above: Note: Responsible Ob bistro server: CCEV AUTOFILE (3002) Urea nitrogen [Mass/Vol] 21 mg/dL (8-23) [facility] Work Phone: Comment on above: Note: Responsible Ob bistro server: CCEV AUTOFILE (3002) Otheron 03-10-2020 (cont.) See Note [facility] Work Phone: Comment on above: Note: Average GFR fo r 60-69 years old:85 mL/min/1.73sq mChronic Kidney Disease:<60 mL/min/1.73sq mKidney failure:<15 mL/min/1.73sq meGFR calculated using average adult body mass. Additional eGFR calculatoravailable at:http://www.[employer].com/multiple_crcl_2012.htmResponsible Observer: CCEV AUTOFILE (3002) Abs. Basophil 0.06 k/uL (0.00-0.20 ) [facility] Work Phone: Comment on above: Note: Responsible Ob bistro server: XNV AUTOFILE (1248) Abs.Imm.Granulocyte <0.03 k/uL (0.00-0. 30 ) [facility] Work Phone: Comment on above: Note: Responsible Ob bistro server: XNV AUTOFILE (3018) Abs.Neutrophil (Seg) 3.12 k/uL (1.50-8 .10 ) [facility] Work Phone: Comment on above: Note: Responsible Ob bistro server: XNV AUTOFILE (3018) Albumin/Glob Ratio 1.9 (1.0-2.5) [facility] Work Phone: Comment on above: Note: Responsible Ob bistro server: CCEV AUTOFILE (3002) Alkaline Phos 136 U/L High (35-104) [facility] Work Phone: Comment on above: Note: Responsible Ob bistro server: CCEV AUTOFILE (3002) Auto Diff Performed NOT REPORTED [facility]: BUN/CRE Ratio NOT REPORTED (9-20) [facility] Work Phone: Cholesterol,HDL 46 mg/dL (>40) [facility] Work Phone: Comment on above: Note: HDL Guidelines :<40 [id number] Borderline>59 DesirableResponsible Observer: CCEV AUTOFILE (3002) Cholesterol,LDL 73 mg/dL (0-130) [facility] Work Phone: Comment on above: Note: LDL Guidelines :<100 [id number] Near to/above [id number] Borderline>159 UndesirableDirect (measured) LDL and calculated LDL are not interchangeable tests.Responsible Observer: CCEV AUTOFILE (3002) Cholesterol,VLDL NOT REPORTED mg/dL (1-30) [facility] Work Phone: Cholesterol.total/Judy sterol in HDL [Mass ratio] 3.0 {ratio} (<5) [facility] Work Phone: Comment on above: Note: Responsible Ob bistro server: CCEV AUTOFILE (3002) Erythrocyte distribution width (RBC) [Ratio] 13.2 % (11.8-14.4 ) [facility] Work Phone: Comment on above: Note: Responsible Ob bistro server: XNV AUTOFILE (3018) GFR, Amer 59 mL/min Low (>60) [facility] Work Phone: Comment on above: Note: Responsible Ob bistro server: CCEV AUTOFILE (3002) GFR,non Amer 49 mL/min Low (>60) [facility] Work Phone: Comment on above: Note: Responsible Ob bistro server: CCEV AUTOFILE (3002) Immature granulocytes (Bld) [#/Vol] 0 % (0) [facility] Work Phone: Comment on above: Note: Responsible Ob bistro server: XNV AUTOFILE (301) MCHC (RBC) [Mass/Vol] 29.5 g/dL (28.4- 34.8 ) [facility] Work Phone: Comment on above: Note: Responsible Ob bistro server: XNV AUTOFILE (3017) Performing Lab: see note [facility] Work Phone: Comment on above: Note: MICHELLE Kinney [address] [facility] [address] Platelet mean volume (Bld) [Entitic vol] 11.1 fL (8.1-13.5) [facility] Work Phone: Comment on above: Note: Responsible Ob bistro server: XNV AUTOFILE (3018) Reported Physicians See Note [facility] Work Phone: Comment on above: Note: Reported Physi cians:Ordering: Cotton, AimeeAttending: Cotton, AimeeReferring: Cotton, Karla Segmented neutrophils/100 WBC (Bld) 59 % (36-65) [facility] Work Phone: Comment on above: Note: Responsible Ob bistro server: XNV AUTOFILE (3018) Staging: NOT REPORTED [facility] Work Phone: Thyroid Stim. Horm. 1.01 mIU/L (0.30-5. 00 ) [facility] Work Phone: Comment on above: Note: Responsible Ob bistro server: NA ARORA (7961) Triglyceride,Fasting 102 mg/dL (<150) [facility] Work Phone: Comment on above: Note: Triglyceride G uidelines:<150 [id number] High>499 Very highBased on AHA Guidelines for fasting triglyceride, March 2012.Responsible Observer: CCEV AUTOFILE (4326) WBC Morphology NOT REPORTED [facility] Work Phone: TSH with Reflexon 03-10-2020 TSH Qn 1.01 m[IU]/L [place], [place] Creatinine, Serumon 08-03-19 20 Creatinine [Mass/Vol] 1.06 mg/dL High 0.5 - 0.9 mg/dL [place], [place] GFR >60 >60 mL/min [place], [place] GFR Non- 53 mL/min Low >60 [place] Interpretation and review of laboratory results Abnormal [place] Glucose, randomon 08-03-2019 Glucose [Mass/Vol] 98 mg/dL 70 - 99 mg/dL [place] Lipid Panelon 08-03-2019 Cholesterol [Mass/Vol] 145 mg/dL <200 [place], [place] Comment on above: Cholesterol Guidelines: <200 Desirable 200-240 Borderline >240 Undesirable Cholesterol in HDL [Mass/Vol] 54 mg/dL >40 [place] Comment on above: HDL Guidelines: <40 Undesirable 40-59 Borderline >59 Desirable Cholesterol in LDL [Mass/Vol] 75 mg/dL 0 - 130 mg/dL [place] Comment on above: LDL Guidelines: <100 Desirable 100-129 Near to/above Desirable 130-159 Borderline >159 Undesirable Direct (measured) LDL and calculated LDL are not interchangeable tests. Cholesterol in VLDL [Mass/Vol] NOT REPORTED 1 - 30 mg/dL [place] Cholesterol.total/Judy sterol in HDL [Mass ratio] 2.7 {ratio} <5 [place] Triglyceride [Mass/Vol] 80 mg/dL <150 [place] Comment on above: Triglyceride Guidelines: <150 Desirable 150-199 Borderline 200-499 High >499 Very high Based on AHA Guidelines for fasting triglyceride, March 2012. [place] Levelon 08-03-2019 [place] Date Last Dose NOT REPORTED [place] Dose Amount NOT REPORTED [place] Dose Time NOT REPORTED [place] Lvl 1.1 mmol/L 0.6 - 1.2 mmol/L [place] Metabolic Panelon 08-03-2019 GFR/1.73 sq M predicted among non-blacks MDRD (S/P/Bld) [Vol rate/Area] [place], [place] Comment on above: Average GFR for 60-6 9 years old: 85 mL/min/1.73sq m Chronic Kidney Disease: <60 mL/min/1.73sq m Kidney failure: <15 mL/min/1.73sq m eGFR calculated using average adult body mass. Additional eGFR calculator available at: http://www.[employer]/multiple_crcl_2012.htm Stage 1: Some kidney damage normal GFR Stage 2: Mild kidney damage GFR 60-89 Stage 3: Moderate kidney damage GFR 30-59 Stage 4: Severe kidney damage GFR 15-29 Stage 5: Severe kidney damage GFR <15 ESRD - chronic treatment by dialysis or transplant TSH without Reflexon 020 TSH Qn 1.45 m[IU]/L [place] US BREAST LIMITED LEFTon 1. Previously [...] sent to the patient regarding the results. [facility] [place] EXAMINATION: TARGETE D ULTRASOUND OF THE [...] this region as no target was demonstrated. [place], [place], Mhpn Incoming Radiant Results From [facility] - 04/10/2019 12:52 PM EST EXAMINATION: TARGETED [...] sent to the patient regarding the results. [place] US BREAST COMPLETE LEFTon 2 site [...] patient at the time of service. A c s s representative from the radiology department will be contacting your office and assisting the patient in getting appropriate follow-up. [place] EXAMINATION: TARGETE D ULTRASOUND OF THE [...] images of the axilla show no lymphadenopathy. [facility] [place], pn Incoming Radiant Results From [facility] - 03/11/2019 1:56 PM EDT EXAMINATION: TARGETED [...] patient at the time of service. A c s s representative from the radiology department will be contacting your office and assisting the patient in getting appropriate follow-up. [facility] XR FOOT RIGHT (MIN 3 VIEWS)o n 02-16-2019 No acute osseous abnormality. 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 [facility] EXAMINATION: THREE X RAY VIEWS OF THE RIGHT FOOT 02/16/2019 11:39 am COMPARISON: None. 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 Lisfranc alignment is normal. 5th metatarsal base is intact. Talonavicular degenerative change. [facility] [place], Mhpn Incoming Radiant Results From [facility] - 02/16/2019 12:08 PM EDT EXAMINATION: THREE [...] abnormality. 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 [place], [place] [facility] 11-14-2018 Cholesterol [Mass/Vol] 150 mg/dL (<200) [facility] Work Phone: Comment on above: Note: Cholesterol Gu idelines: <200 Desirable 200-240 Borderline >240 Undesirable Responsible Observer: CET TWO AUTOFILE (3006) Triglyceride [Mass/Vol] 147 mg/dL (<150) [facility] Work Phone: Comment on above: Note: Triglyceride G uidelines: <150 Desirable 150-199 Borderline 200-499 High >499 Very high Based on AHA Guidelines for fasting triglyceride, March 2012. Responsible Observer: CET TWO AUTOFILE (3006) Hematologyon 11-14-2018 Basophils/100 WBC (Bld) 1 % (0-2) [facility] Work Phone: Comment on above: Note: Responsible Ob bistro server: XNT AUTOFILE (3019) Eosinophils (Bld) [#/Vol] 0.15 10*3/uL (0.00-0.44 ) [facility] Work Phone: Comment on above: Note: Responsible Ob bistro server: XNT AUTOFILE (3019) Eosinophils/100 WBC (Bld) 3 % (1-4) [facility] Work Phone: Comment on above: Note: Responsible Ob bistro server: XNT AUTOFILE (3019) Hematocrit (Bld) [Volume fraction] 39.9 % (36.3-47.1 ) [facility] Work Phone: Comment on above: Note: Responsible Ob bistro server: XNT AUTOFILE (3019) Hemoglobin (Bld) [Mass/Vol] 12.5 g/dL (11.9-15.1 ) [facility] Work Phone: Comment on above: Note: Responsible Ob bistro server: XNT AUTOFILE (3019) Lymphocytes (Bld) [#/Vol] 1.97 10*3/uL (1.10-3.70 ) [facility] Work Phone: Comment on above: Note: Responsible Ob bistro server: XNT AUTOFILE (3019) Lymphocytes/100 WBC (Bld) 36 % (24-43) [facility] Work Phone: Comment on above: Note: Responsible Ob bistro server: XNT AUTOFILE (3019) MCH (RBC) [Entitic mass] 31.2 pg (25.2-33.5 ) [facility] Work Phone: Comment on above: Note: Responsible Ob bistro server: XNT AUTOFILE (3019) MCV (RBC) [Entitic vol] 99.5 fL (82. 6-102. 9) [facility] Work Phone: Comment on above: Note: Responsible Ob bistro server: XNT AUTOFILE (3019) Monocytes (Bld) [#/Vol] 0.54 10*3/uL (0.1 0-1.20 ) [facility] Work Phone: Comment on above: Note: Responsible Ob bistro server: XNT AUTOFILE (3019) Monocytes/100 WBC (Bld) 10 % (3-12) [facility] Comment on above: Note: Responsible Ob bistro server: XNT AUTOFILE (3019) Platelets (Bld) [#/Vol] NOT REPORTED [facility] Work Phone: Platelets (Bld) [#/Vol] 269 10*3/uL (138-453) [facility] Work Phone: Comment on above: Note: Responsible Ob bistro server: XNT AUTOFILE (3019) RBC (Bld) [#/Vol] 4.01 10*6/uL (3.95-5.11 ) [facility] Work Phone: Comment on above: Note: Responsible Ob bistro server: XNT AUTOFILE (3019) RBC morphology finding Nom (Bld) NOT REPORTED [facility] Work Phone: WBC (Bld) [#/Vol] 0.0 per_100_WBC (0.0) [facility] Work Phone: Comment on above: Note: Responsible Ob bistro server: XNT AUTOFILE (3019) WBC (Bld) [#/Vol] 5.5 10*3/uL (3.5-11.3) [facility] Work Phone: Comment on above: Note: Responsible Ob bistro server: XNT AUTOFILE (3019) Metabolic Panelon 11-14-2018 Albumin [Mass/Vol] 4.4 g/dL (3.5-5.2) [facility] Work Phone: Comment on above: Note: Responsible Ob bistro server: CET TWO AUTOFILE (3006) ALT [Catalytic activity/Vol] 18 U/L (5-33) [facility] Work Phone: Comment on above: Note: Responsible Ob bistro server: CET TWO AUTOFILE (3006) Anion gap [Moles/Vol] 9 mmol/L (9-17) [facility] Work Phone: Comment on above: Note: Responsible Ob bistro server: CET TWO AUTOFILE (3006) AST [Catalytic activity/Vol] 15 U/L (<32) [facility] Work Phone: Comment on above: Note: Responsible Ob bistro server: CET TWO AUTOFILE (3006) Bilirubin [Mass/Vol] 0.35 mg/dL (0.3-1.2) [facility] Work Phone: Comment on above: Note: Responsible Ob bistro server: CET TWO AUTOFILE (3006) Calcium [Mass/Vol] 10.8 mg/dL High (8.6-10.4) [facility] Work Phone: Comment on above: Note: Responsible Ob bistro server: CET TWO AUTOFILE (3006) Chloride [Moles/Vol] 109 mmol/L High (98-107) [facility] Work Phone: Comment on above: Note: Responsible Ob bistro server: CET TWO AUTOFILE (3006) CO2 [Moles/Vol] 24 mmol/L (20-31) [facility] Work Phone: Comment on above: Note: Responsible Ob bistro server: CET TWO AUTOFILE (3006) Creatinine [Mass/Vol] 1.07 mg/dL High (0.50- 0.90 ) [facility] Work Phone: Comment on above: Note: Responsible Ob bistro server: CET TWO AUTOFILE (3006) Glucose [Mass/Vol] 101 mg/dL High (70-99) [facility] Work Phone: Comment on above: Note: Responsible Ob bistro server: CET TWO AUTOFILE (3006) Potassium [Moles/Vol] 4.3 mmol/L (3.7-5.3) [facility] Work Phone: Comment on above: Note: Responsible Ob bistro server: CET TWO AUTOFILE (3006) Protein [Mass/Vol] 7.1 g/dL (6.4-8.3) [facility] Work Phone: Comment on above: Note: Responsible Ob bistro server: CET TWO AUTOFILE (3006) Sodium [Moles/Vol] 142 mmol/L (135-144) [facility] Work Phone: Comment on above: Note: Responsible Ob bistro server: CET TWO AUTOFILE (3006) Urea nitrogen [Mass/Vol] 15 mg/dL (8-23) [facility] Work Phone: Comment on above: Note: Responsible Ob bistro server: CET TWO AUTOFILE (3006) Otheron 11-14-2018 (cont.) See Note [facility] Work Phone: Comment on above: Note: Average GFR fo r 60-69 years old: 85 mL/min/1.73sq mChronic Kidney Disease: <60 mL/min/1.73sq mKidney failure: <15 mL/min/1.73sq m eGFR calculated using average adult body mass. Additional eGFR calculator available at: http://www.[employer]/multiple_crcl_2012.htm Responsible Observer: CET TWO AUTOFILE (3006) Abs. Basophil 0.04 k/uL (0.00-0.20 ) [facility] Work Phone: Comment on above: Note: Responsible Ob bistro server: XNT AUTOFILE (3019) Abs.Imm.Granulocyte <0.03 k/uL (0.00-0. 30 ) [facility] Work Phone: Comment on above: Note: Responsible Ob bistro server: XNT AUTOFILE (3019) Abs.Neutrophil (Seg) 2.77 k/uL (1.50-8 .10 ) [facility] Work Phone: Comment on above: Note: Responsible Ob bistro server: XNT AUTOFILE (3019) Albumin/Glob Ratio 1.6 (1.0-2.5) [facility] Work Phone: Comment on above: Note: Responsible Ob bistro server: CET TWO AUTOFILE (3006) Alkaline Phos 135 U/L High (35-104) [facility] Work Phone: Comment on above: Note: Responsible Ob bistro server: CET TWO AUTOFILE (3006) Auto Diff Performed NOT REPORTED [facility] Work Phone: BUN/CRE Ratio 14 (9-20) [facility] Work Phone: Comment on above: Note: Responsible Ob bistro server: CET TWO AUTOFILE (3006) Cholesterol,HDL 44 mg/dL (>40) [facility] Work Phone: Comment on above: Note: HDL Guidelines : <40 Undesirable 40-59 Borderline >59 Desirable Responsible Observer: CET TWO AUTOFILE (3006) Cholesterol,LDL 77 mg/dL (0-130) [facility] Work Phone: Comment on above: Note: LDL Guidelines : <100 Desirable 100-129 Near to/above Desirable 130-159 Borderline >159 Undesirable Direct (measured) LDL and calculated LDL are not interchangeable tests.Responsible Observer: CET TWO AUTOFILE (3006) Cholesterol,VLDL NOT REPORTED mg/dL (1-30) [facility] Work Phone: Cholesterol.total/Judy sterol in HDL [Mass ratio] 3.4 {ratio} (<5) [facility] Work Phone: Comment on above: Note: Responsible Ob bistro server: CET TWO AUTOFILE (3006) Erythrocyte distribution width (RBC) [Ratio] 13.2 % (11.8-14.4 ) [facility] Work Phone: Comment on above: Note: Responsible Ob bistro server: XNT AUTOFILE (3019) GFR, Amer >60 mL/min (>60) [facility] Work Phone: Comment on above: Note: Responsible Ob bistro server: CET TWO AUTOFILE (3006) GFR,non Amer 52 mL/min Low (>60) [facility] Work Phone: Comment on above: Note: Responsible Ob bistro server: CET TWO AUTOFILE (3006) Immature granulocytes (Bld) [#/Vol] 0 % (0) [facility] Work Phone: Comment on above: Note: Responsible Ob bistro server: XNT AUTOFILE (3019) MCHC (RBC) [Mass/Vol] 31.3 g/dL (28.4- 34.8 ) [facility] Work Phone: Comment on above: Note: Responsible Ob bistro server: XNT AUTOFILE (3019) Performing Lab: see note [facility] Work Phone: Comment on above: Note: [facility] [address] [place] [address] Platelet mean volume (Bld) [Entitic vol] 10.8 fL (8.1-13.5) [facility] Work Phone: Comment on above: Note: Responsible Ob bistro server: XNT AUTOFILE (3019) Reported Physicians See Note [facility] Work Phone: Comment on above: Note: Reported Physi cians:Ordering: Cotton, AimeeAttending: Cotton, AimeeReferring: Cotton, Karla Segmented neutrophils/100 WBC (Bld) 50 % (36-65) [facility] Work Phone: Comment on above: Note: Responsible Ob bistro server: XNT AUTOFILE (3019) Staging: See Note [facility] Work Phone: Comment on above: Note: Stage 1: Some kidney damage normal GFRStage 2: Mild kidney damage GFR 60-89Stage 3: Moderate kidney damage GFR 30-59Stage 4: Severe kidney damage GFR 15-29Stage 5: Severe kidney damage GFR <15ESRD - chronic treatment by dialysis or transplantResponsible Observer: CET TWO AUTOFILE (3006) Thyroid Stim. Horm. 1.05 mIU/L (0.30-5. 00 ) [facility] Work Phone: Comment on above: Note: Responsible Ob bistro server: CET TWO AUTOFILE (3006) Thyroxine, Free 0.93 ng/dL (0.93-1.70 ) [facility] Work Phone: Comment on above: Note: Responsible Ob bistro server: CET TWO AUTOFILE (3006) WBC Morphology NOT REPORTED [facility] Work Phone: [facility] 09-24-2018 Cholesterol [Mass/Vol] 171 mg/dL (<200) [facility] Work Phone: Comment on above: Note: Cholesterol Gu idelines: <200 Desirable 200-240 Borderline >240 Undesirable Responsible Observer: MORRIS LOUISE (MHT) (1932) Triglyceride [Mass/Vol] 400 mg/dL High (<150) [facility] Comment on above: Note: Triglyceride G uidelines: <150 Desirable 150-199 Borderline 200-499 High >499 Very high Based on AHA Guidelines for fasting triglyceride, March 2012. Responsible Observer: MORRIS Boyd (MHT)) Hematologyon 09-24-2018 Basophils/100 WBC (Bld) 1 % (0-2) [facility] Work [facility]: Comment on above: Note: Responsible Ob bistro server: XNT AUTOFILE (3019) Eosinophils (Bld) [#/Vol] 0.15 10*3/uL (0.00-0.44 ) [facility] Work Phone: Comment on above: Note: Responsible Ob bistro server: XNT AUTOFILE (3019) Eosinophils/100 WBC (Bld) 2 % (1-4) [facility] Work Phone: Comment on above: Note: Responsible Ob bistro server: XNT AUTOFILE (3019) Hematocrit (Bld) [Volume fraction] 42.8 % (36.3-47.1 ) [facility] Work Phone: Comment on above: Note: Responsible Ob bistro server: XNT AUTOFILE (3019) Hemoglobin (Bld) [Mass/Vol] 13.7 g/dL (11.9-15.1 ) [facility] Work Phone: Comment on above: Note: Responsible Ob bistro server: XNT AUTOFILE (3019) Lymphocytes (Bld) [#/Vol] 1.73 10*3/uL (1.10-3.70 ) [facility] Work Phone: Comment on above: Note: Responsible Ob bistro server: XNT AUTOFILE (3019) Lymphocytes/100 WBC (Bld) 24 % (24-43) [facility] Work Phone: Comment on above: Note: Responsible Ob bistro server: XNT AUTOFILE (3019) MCH (RBC) [Entitic mass] 31.1 pg (25.2-33.5 ) [facility] Work Phone: Comment on above: Note: Responsible Ob bistro server: XNT AUTOFILE (9) MCV (RBC) [Entitic vol] 97.3 fL (82. 6-102. 9) [facility] Work Phone: Comment on above: Note: Responsible Ob bistro server: XNT AUTOFILE (9) Monocytes (Bld) [#/Vol] 0.64 10*3/uL (0.1 0-1.20 ) [facility] Work Phone: Comment on above: Note: Responsible Ob bistro server: XNT AUTOFILE (9) Monocytes/100 WBC (Bld) 9 % (3-12) [facility] Work [facility] Comment on above: Note: Responsible Ob bistro server: XNT AUTOFILE (9) Platelets (Bld) [#/Vol] NOT REPORTED [facility] Work Phone: Platelets (Bld) [#/Vol] 280 10*3/uL (138-453) [facility] Work Phone: Comment on above: Note: Responsible Ob bistro server: XNT AUTOFILE (3018) RBC (Bld) [#/Vol] 4.40 10*6/uL (3.95-5.11 ) [facility] Work Phone: Comment on above: Note: Responsible Ob bistro server: XNT AUTOFILE (3018) RBC morphology finding Nom (Bld) NOT REPORTED [facility] Work Phone: WBC (Bld) [#/Vol] 7.3 10*3/uL (3.5-11.3) [facility] Work Phone: Comment on above: Note: Responsible Ob bistro server: XNT AUTOFILE (3019) WBC (Bld) [#/Vol] 0.0 per_100_WBC (0.0) [facility] Work Phone: Comment on above: Note: Responsible Ob bistro server: XNT AUTOFILE (3019) Metabolic Panelon 09-24-2018 Albumin [Mass/Vol] 4.2 g/dL (3.5-5.2) [facility] Work Phone: Comment on above: Note: Responsible Ob bistro server: MORRIS SnyderAnmol) ASPEN (1933) ALT [Catalytic activity/Vol] 16 U/L (5-33) [facility] Work Phone: Comment on above: Note: Responsible Ob bistro server: MORRIS LOUISE (MHT) (1932) Anion gap [Moles/Vol] 16 mmol/L [facility] Work Phone: Comment on above: Note: Responsible Ob bistro server: MORRIS (KATYA) ASPEN (1932) AST [Catalytic activity/Vol] 14 U/L (<32) [facility] Work Phone: Comment on above: Note: Responsible Ob bistro server: MORRIS HUBBARD) ASPEN (1932) Bilirubin [Mass/Vol] mg/dL Low (0.3-1.2) [facility] Work Phone: Comment on above: Note: Responsible Ob bistro server: MORRIS HUBBARD) ASPEN (1932) Calcium [Mass/Vol] 11.2 mg/dL High (8.6-10.4) [facility] Work Phone: Comment on above: Note: Responsible Ob bistro server: MORRIS HUBBARD) ASPEN (1932) Chloride [Moles/Vol] 103 mmol/L (98-107) [facility] Work Phone: Comment on above: Note: UNABLE TO CALC ULATE GAP, SPECIMEN REPEATEDCORRECTED ON 09/24 AT 1740: PREVIOUSLY REPORTED 112Responsible Observer: MORRIS LOUISE (MHT) (1932) CO2 [Moles/Vol] 22 mmol/L (20-31) [facility] Work Phone: Comment on above: Note: UNABLE TO CALC ULATE GAP, SPECIMEN REPEATEDCORRECTED ON 09/24 AT 1740: PREVIOUSLY REPORTED 24Responsible Observer: MORRIS LOUISE (MHT) (1932) Creatinine [Mass/Vol] 0.93 mg/dL High (0.50- 0.90 ) [facility] Work Phone: Comment on above: Note: Responsible Ob bistro server: MORRIS (KATYA) ASPEN (1932) Glucose [Mass/Vol] 91 mg/dL (70-99) [facility] Work Phone: Comment on above: Note: Responsible Ob bistro server: MORRIS LOUISE (MHT) (1932) Potassium [Moles/Vol] 4.5 mmol/L (3.7-5.3) [facility] Work Phone: Comment on above: Note: UNABLE TO CALC ULATE GAP, SPECIMEN REPEATEDCORRECTED ON 09/24 AT 1740: PREVIOUSLY REPORTED 4.0Responsible Observer: MORRIS LOUISE (MHT) (1932) Protein [Mass/Vol] 7.0 g/dL (6.4-8.3) [facility] Work Phone: Comment on above: Note: Responsible Ob bistro server: MORRIS LOUISE (MHT) (1932) Sodium [Moles/Vol] 141 mmol/L (135-144) [facility] Work Phone: Comment on above: Note: UNABLE TO CALC ULATE GAP, SPECIMEN REPEATEDCORRECTED ON 09/24 AT 1740: PREVIOUSLY REPORTED 133Responsible Observer: MORRIS LOUISE (MHT) (1932) Urea nitrogen [Mass/Vol] 17 mg/dL (8-23) [facility] Work Phone: Comment on above: Note: Responsible Ob bistro server: MORRIS Boyd (MHT)) Otheron 09-24-2018 (cont.) See Note [facility] Work Phone: Comment on above: Note: Average GFR fo r 60-69 years old: 85 mL/min/1.73sq mChronic Kidney Disease: <60 mL/min/1.73sq mKidney failure: <15 mL/min/1.73sq m eGFR calculated using average adult body mass. Additional eGFR calculator available at: http://www.[employer]/multiple_crcl_2012.htm Responsible Observer: MORRIS Snyder (MHT)1932) Abs. Basophil 0.04 k/uL (0.00-0.20 ) [facility] Work Phone: Comment on above: Note: Responsible Ob bistro server: XNT AUTOFILE (3018) Abs.Imm.Granulocyte 0.03 k/uL (0.00-0. 30 ) [facility] Work Phone: Comment on above: Note: Responsible Ob bistro server: XNT AUTOFILE (9) Abs.Neutrophil (Seg) 4.73 k/uL (1.50-8 .10 ) [facility] Work Phone: Comment on above: Note: Responsible Ob bistro server: XNT AUTOFILE (9) Albumin/Glob Ratio 1.5 (1.0-2.5) [facility] Work Phone: Comment on above: Note: Responsible Ob bistro server: MORRIS Snyder (MHT)1932) Alkaline Phos 124 U/L High (35-104) [facility] Work Phone: Comment on above: Note: Responsible Ob bistro server: MORRIS Boyd (MHT)) Auto Diff Performed NOT REPORTED [facility]: BUN/CRE Ratio 18 (9-20) [facility] Work Phone: Comment on above: Note: Responsible Ob bistro server: MORRIS LOUISE (MHT) (1932) Cholesterol,HDL 42 mg/dL (>40) [facility] Work Phone: Comment on above: Note: HDL Guidelines : <40 Undesirable 40-59 Borderline >59 Desirable Responsible Observer: MORRIS Snyder (MHT)1932) Cholesterol,LDL 49 mg/dL (0-130) [facility] Work Phone: Comment on above: Note: LDL Guidelines : <100 Desirable 100-129 Near to/above Desirable 130-159 Borderline >159 Undesirable Direct (measured) LDL and calculated LDL are not interchangeable tests.Responsible Observer: MORRIS Snyder (MHT)Padmini) Cholesterol,VLDL NOT REPORTED mg/dL (1-30) [facility] Work Phone: Cholesterol.total/Judy sterol in HDL [Mass ratio] 4.1 {ratio} (<5) [facility] Work Phone: Comment on above: Note: Responsible Ob bistro server: MORRIS (T) ASPEN (1932) Erythrocyte distribution width (RBC) [Ratio] 12.7 % (11.8-14.4 ) [facility] Work Phone: Comment on above: Note: Responsible Ob bistro server: XNT AUTOFILE (3018) GFR, Amer >60 mL/min (>60) [facility] Work Phone: Comment on above: Note: Responsible Ob bistro server: MORRIS (MHT) ASPEN (1932) GFR,non Amer >60 mL/min (>60) [facility] Work Phone: Comment on above: Note: Responsible Ob bistro server: MORRIS (MHT) ASPEN (1932) Immature granulocytes (Bld) [#/Vol] 0 % (0) [facility] Work Phone: Comment on above: Note: Responsible Ob bistro server: XNT AUTOFILE (3018) MCHC (RBC) [Mass/Vol] 32.0 g/dL (28.4- 34.8 ) [facility] Work Phone: Comment on above: Note: Responsible Ob bistro server: XNT AUTOFILE (3018) Performing Lab: see note [facility] Work Phone: Comment on above: Note: [facility] [address] [place] [address] Platelet mean volume (Bld) [Entitic vol] 11.0 fL (8.1-13.5) [facility] Work Phone: Comment on above: Note: Responsible Ob bistro server: XNT AUTOFILE (3018) Reported Physicians See Note [facility] Work Phone: Comment on above: Note: Reported Physi cians:Ordering: Cotton, AimeeAttending: Cotton, AimeeReferring: Cotton, Karla Segmented neutrophils/100 WBC (Bld) 64 % (36-65) [facility] Work Phone: Comment on above: Note: Responsible Ob bistro server: XNT AUTOFILE (0270) Staging: See Note [facility] Work Phone: Comment on above: Note: Stage 1: Some kidney damage normal GFRStage 2: Mild kidney damage GFR 60-89Stage 3: Moderate kidney damage GFR 30-59Stage 4: Severe kidney damage GFR 15-29Stage 5: Severe kidney damage GFR <15ESRD - chronic treatment by dialysis or transplantResponsible Observer: MORRIS LOUISE (MHT) (1932) Thyroid Stim. Horm. 1.08 mIU/L (0.30-5. 00 ) [facility] Work Phone: Comment on above: Note: Responsible Ob bistro server: MORRIS SnyderAnmol) ASPEN (1932) Thyroxine, Free 0.97 ng/dL (0.93-1.70 ) [facility] Work Phone: Comment on above: Note: Responsible Ob bistro server: MORRIS SnyderTremaine LOUISE (1932) WBC Morphology NOT REPORTED [facility] Work Phone: Hematologyon 07-31-2018 pH (Bld) Negative Normal (5.0/6.0/6 .5/7.0/7.5 /8.0/8.5) [facility] Work Phone: Laboratory - Chemistry and C hemistry - challengeOrdered By: Karla Clark on 07-31-2018 Bilirubin [Mass/Vol] Negative Normal (Neg/Sm all /Moderate/ Large) [facility] Work Phone: Glucose [Mass/Vol] Negative Normal (NEG/100/ 2 50/500/100 or more) [facility] Work Phone: Ketones Ql (U) Negative Normal (Neg/Small /Moderate/ Large) [facility] Work Phone: pH (Bld) Negative Normal (5.0/6.0/6 .5/7.0/7.5 /8.0/8.5) [facility] Work Phone: Protein [Mass/Vol] Negative Normal (Neg/Trac e /30/100/30 or more) [facility] Work Phone: Urobilinogen (U) [Mass/Vol] Negative Normal (t) [facility] Work Phone: Specific gravity (U) [Rel density] 1.000 Normal (1.000/1.0 05/1.101/1 .015/1.020 /1.025/1.0 30) [facility] Work Phone: Laboratory - UrinalysisOrder ed By: Karla Clark on 07-31-2018 Nitrite Ql (U) Negative Normal (Neg/Pos) [facility] Work Phone: Metabolic Panelon 07-31-2018 Bilirubin [Mass/Vol] Negative Normal (Neg/Sm all /Moderate/ Large) [facility] Work Phone: Glucose [Mass/Vol] Negative Normal (NEG/100/ 2 50/500/100 or more) [facility] Work Phone: Protein [Mass/Vol] Negative Normal (Neg/Trac e /30/100/30 or more) [facility] Work Phone: No Panel InformationOrdered By: Karla Clark on 07-31-2018 Blood Negative Normal (Neg/NH-Tr pedro/NH-Mod erate/H-Tr pedro/H-smal l/H-Modera t) [facility] Work Phone: All Values Normal abnormal Abnormal (NORMAL) [facility] Work Phone: Leukocyates trace Abnormal (Neg/Trace /Small/Mod erate/Larg e) [facility] Work Phone: Otheron 07-31-2018 Blood Negative Normal (Neg/NH-Tr pedro/NH-Mod erate/H-Tr pedro/H-smal l/H-Modera t) [facility] Work Phone: Nitrite Ql (U) Negative Normal (Neg/Pos) [facility] Work Phone: Urobilinogen Qn (U) Negative Normal (t) [facility] Work Phone: Urinalysison 07-31-2018 Ketones Ql (U) Negative Normal (Neg/Small /Moderate/ Large) [facility] Work Phone: Cardiacon 09-26-2017 Cholesterol mass conc 195 mg/dL Invalid Interpretation Code <200 [facility] Cholesterol mass conc 195 mg/dL Invalid Interpretation Code <200 [facility] Hematologyon 09-26-2017 Basophils Auto #/vol (Bld) 0.070 10*3/uL Invalid Interpretation Code 0.00-0.20 [facility] Basophils/100 WBC Auto (Bld) 1 % Invalid Interpretation Code 0-2 [facility] Eosinophils Auto #/vol (Bld) 2 10*3/uL Invalid Interpretation Code 1-4 [facility] Eosinophils Auto #/vol (Bld) 0.140 10*3/uL Invalid Interpretation Code 0.00-0.44 [facility] Erythrocyte distribution width Auto Ratio (RBC) 13.2 % Invalid Interpretation Code 11.8-14.4 [facility] Hematocrit Auto Volume Fraction (Bld) 44.2 % Invalid Interpretation Code 36.3-47.1 [facility] Hemoglobin mass conc (Bld) 13.5 g/dL Invalid Interpretation Code 11.9-15.1 [facility] Lymphocytes Auto #/vol (Bld) 31 10*3/uL Invalid Interpretation Code 24-43 [facility] Lymphocytes Auto #/vol (Bld) 2.240 10*3/uL Invalid Interpretation Code 1.10-3.70 [facility] MCH Auto Entitic mass (RBC) 31.0 pg Invalid Interpretation Code 25.2-33.5 [facility] MCHC Auto mass conc (RBC) 30.5 g/dL Invalid Interpretation Code 28.4-34.8 [facility] MCV Auto Entitic volume (RBC) 101.4 fL Invalid Interpretation Code 82.6-102.9 [facility] Monocytes Auto #/vol (Bld) 9 10*3/uL Invalid Interpretation Code 3-12 [facility] Monocytes Auto #/vol (Bld) 0.640 10*3/uL Invalid Interpretation Code 0.10-1.20 [facility] Neutrophils Auto #/vol (Bld) 4.10 10*3/uL Invalid Interpretation Code 1.50-8.10 [facility] Platelet mean volume Auto Entitic volume (Bld) 11.7 fL Invalid Interpretation Code 8.1-13.5 [facility] RBC Auto #/vol (Bld) 4.36 10*6/uL Invalid Interpretation Code 3.95-5.11 [facility] WBC Auto #/vol (Bld) 7.2 10*3/uL Invalid Interpretation Code 3.5-11.3 [facility] Basophils Auto #/vol (Bld) 0.070 10*3/uL Invalid Interpretation Code 0.00-0.20 [facility] Basophils/100 WBC (Bld) 1 % [facility] WBC Auto (Bld) 1 % Invalid Interpretation Code 0-2 [facility] Eosinophils 0.14 10*3/uL Invalid Interpretation Code 0.00-0.44 [facility] Eosinophils 2 10*3/uL Invalid Interpretation Code 1-4 [facility] Eosinophils #/vol (Bld) 0.14 10*3/uL 0.00-0.44 [facility] Eosinophils #/vol (Bld) 2 10*3/uL 1-4 [facility] Eosinophils Auto #/vol (Bld) 0.140 10*3/uL Invalid Interpretation Code 0.00-0.44 [facility] Erythrocyte distribution width Auto Ratio (RBC) 13.2 % Invalid Interpretation Code 11.8-14.4 [facility] Erythrocytes (RBC) 4.36 10*6/uL Invalid Interpretation Code 3.95-5.11 [facility] Erythrocytes (RBC) NOT REPORTED Invalid Interpretation Code [facility] Erythrocytes (RBC) 0.0 10*6/uL Invalid Interpretation Code 0.0 [facility] Hematocrit (HCT) 44.2 % Invalid Interpretation Code 36.3-47.1 [facility] Hematocrit Volume Fraction (Bld) 44.2 % 36.3-47.1 [facility] Hemoglobin mass conc (Bld) 13.5 g/dL Invalid Interpretation Code 11.9-15.1 [facility] Lymphocytes 2.24 10*3/uL Invalid Interpretation Code 1.10-3.70 [facility] Lymphocytes 31 10*3/uL Invalid Interpretation Code 24-43 [facility] Lymphocytes #/vol (Bld) 31 10*3/uL 24-[facility] Lymphocytes #/vol (Bld) 2.24 10*3/uL 1.10-3.70 [facility] Lymphocytes Auto #/vol (Bld) 2.240 10*3/uL Invalid Interpretation Code 1.10-3.70 [facility] MCH 31.0 pg Invalid Interpretation Code 25.2-33.5 [facility] MCH Entitic mass (RBC) 31.0 pg 25.2-33.5 [facility] MCHC mass conc (RBC) 30.5 g/dL Invalid Interpretation Code 28.4-34.8 [facility] MCV 101.4 fL Invalid Interpretation Code 82.6-102.9 [facility] MCV Entitic volume (RBC) 101.4 fL 82.6-102.9 [facility] Monocytes 0.64 10*3/uL Invalid Interpretation Code 0.10-1.20 [facility] Monocytes 9 10*3/uL Invalid Interpretation Code 3-12 [facility] Monocytes #/vol (Bld) 0.64 10*3/uL 0.10-1.20 [facility] Monocytes #/vol (Bld) 9 10*3/uL 3-12 [facility] Monocytes Auto #/vol (Bld) 0.640 10*3/uL Invalid Interpretation Code 0.10-1.20 [facility] Neutrophils Auto #/vol (Bld) 4.10 10*3/uL Invalid Interpretation Code 1.50-8.10 [facility] Platelet mean volume (PMV) 11.7 fL Invalid Interpretation Code 8.1-13.5 [facility] RBC #/vol (Bld) 4.36 10*6/uL 3.95-5.11 [facility] WBC #/vol (Bld) 7.2 10*3/uL 3.5-11.3 [facility] WBC (Leukocytes) 7.2 10*3/uL Invalid Interpretation Code 3.5-11.3 [facility] Metabolic Panelon 09-26-2017 Albumin mass conc 4.1 g/dL Invalid Interpretation Code 3.5-5.2 [facility] ALT enzyme act/vol 28 U/L Invalid Interpretation Code 5-33 [facility] Anion gap 3 molar conc 9 mmol/L Invalid Interpretation Code 9-17 [facility] AST enzyme act/vol 19 U/L Invalid Interpretation Code <32 [facility] Bilirubin mass conc 0.250 mg/dL Invalid Interpretation Code 0.3-1.2 [facility] Calcium mass conc 10.80 mg/dL Invalid Interpretation Code 8.6-10.4 [facility] Chloride molar conc 103 mmol/L Invalid Interpretation Code 98-107 [facility] CO2 molar conc 27 mmol/L Invalid Interpretation Code 20-31 [facility] Creatinine mass conc 0.83 mg/dL Invalid Interpretation Code 0.50-0.90 [facility] Glucose mass conc 95 mg/dL Invalid Interpretation Code 70-99 [facility] Potassium molar conc 4.8 mmol/L Invalid Interpretation Code 3.7-5.3 [facility] Protein mass conc 7.0 g/dL Invalid Interpretation Code 6.4-8.3 [facility] Sodium molar conc 139 mmol/L Invalid Interpretation Code 135-144 [facility] Urea nitrogen mass conc 22.0 mg/dL Invalid Interpretation Code 8-23 [facility] Albumin mass conc 4.1 g/dL Invalid Interpretation Code 3.5-5.2 [facility] ALT enzyme act/vol 28 U/L Invalid Interpretation Code 5-33 [facility] Anion gap 9 mmol/L Invalid Interpretation Code 9-17 [facility] Anion gap molar conc 9 mmol/L 9-17 [facility] AST enzyme act/vol 19 U/L Invalid Interpretation Code <32 [facility] Bilirubin mass conc 0.25 mg/dL Invalid Interpretation Code 0.3-1.2 [facility] Bilirubin mass conc 0.250 mg/dL Invalid Interpretation Code 0.3-1.2 [facility] BUN (urea nitrogen) 22 mg/dL Invalid Interpretation Code 8-23 [facility] Calcium mass conc 10.8 mg/dL Invalid Interpretation Code 8.6-10.4 [facility] Calcium mass conc 10.80 mg/dL Invalid Interpretation Code 8.6-10.4 [facility] Chloride molar conc 103 mmol/L Invalid Interpretation Code 98-107 [facility] CO2 27 mmol/L Invalid Interpretation Code 20-31 [facility] Creatinine mass conc 0.83 mg/dL Invalid Interpretation Code 0.50-0.90 [facility] eGFR (non-black) mL/min/{1.73_m2} Invalid Interpretation Code >60 [facility] Glucose mass conc 95 mg/dL Invalid Interpretation Code 70-99 [facility] Potassium molar conc 4.8 mmol/L Invalid Interpretation Code 3.7-5.3 [facility] Protein mass conc 7.0 g/dL Invalid Interpretation Code 6.4-8.3 [facility] Sodium molar conc 139 mmol/L Invalid Interpretation Code 135-144 [facility] Urea nitrogen mass conc 22.0 mg/dL Invalid Interpretation Code 8-23 [facility] Urea nitrogen mass conc 22 mg/dL 8-23 [facility] Otheron 09-26-2017 Cholesterol.total/Judy sterol in HDL mass ratio 3.7 {ratio} Invalid Interpretation Code <5 [facility] Immature granulocytes #/vol (Bld) 0 10*3/uL Invalid Interpretation Code 0 [facility] Urea nitrogen/Creatinine mass ratio (Bld) 27 Invalid Interpretation Code 9-20 [facility] NOT REPORTED Invalid Interpretation Code [facility] 205 Invalid Interpretation Code <150 [facility] 101 Invalid Interpretation Code 0-130 [facility] 53 Invalid Interpretation Code >40 [facility] 57 Invalid Interpretation Code 36-65 [facility] 0.0 Invalid Interpretation Code 0.0 [facility] 0.96 Invalid Interpretation Code 0.93-1.70 [facility] 226 Invalid Interpretation Code 138-453 [facility] >60 Invalid Interpretation Code >60 [facility] <0.03 Invalid Interpretation Code 0.00-0.30 [facility] 1.4 Invalid Interpretation Code 1.0-2.5 [facility] 140 Invalid Interpretation Code 35-104 [facility] 1.06 Invalid Interpretation Code 0.30-5.00 [facility] Cholesterol.total/Judy sterol in HDL mass ratio 3.7 {ratio} Invalid Interpretation Code <5 [facility] Erythrocyte distribution width Ratio (RBC) 13.2 % 11.8-14.4 [facility] Granulocytes/100 WBC (Bld) % Invalid Interpretation Code 0.00-0.30 [facility] Immature granulocytes #/vol (Bld) 0 10*3/uL Invalid Interpretation Code 0 [facility] MCHC mass conc (RBC) 30.5 g/dL 28.4-34.8 [facility] Platelet mean volume Entitic volume (Bld) 11.7 fL 8.1-13.5 [facility] Urea nitrogen/Creatinine mass ratio (Bld) 27 Invalid Interpretation Code 9-20 [facility] NOT REPORTED Invalid Interpretation Code [facility] 4.10 Invalid Interpretation Code 1.50-8.10 [facility] 205 Invalid Interpretation Code <150 [facility] 53 Invalid Interpretation Code >40 [facility] 1.06 Invalid Interpretation Code 0.30-5.00 [facility] 57 Invalid Interpretation Code 36-65 [facility] 0.96 Invalid Interpretation Code 0.93-1.70 [facility] 27 Invalid Interpretation Code 9-20 [facility] 226 Invalid Interpretation Code 138-453 [facility] 0.07 Invalid Interpretation Code 0.00-0.20 [facility] 1.4 Invalid Interpretation Code 1.0-2.5 [facility] 140 Invalid Interpretation Code 35-104 [facility] 101 Invalid Interpretation Code 0-130 [facility] 7.0 Invalid Interpretation Code 6.4-8.3 [facility] 28 Invalid Interpretation Code 5-33 [facility] 19 Invalid Interpretation Code <32 [facility] 0.0 Invalid Interpretation Code 0.0 [facility] >60 Invalid Interpretation Code >60 [facility] <0.03 Invalid Interpretation Code 0.00-0.30 [facility] Otheron 09-17-2017 S. pyogenes Ag IA Ql (Unsp spec) Negative Invalid Interpretation Code [facility] S. pyogenes Ag IA Ql (Unsp spec) Negative Invalid Interpretation Code [facility] Otheron 05-14-2017 2 Invalid Interpretation Code [facility] 2 Invalid Interpretation Code [facility] Metabolic Panelon 04-18-2017 Hemoglobin A1c/Hemoglobin.total mass fraction (Bld) 5.0 % Invalid Interpretation Code < 7 [facility] Hemoglobin A1c/Hemoglobin.total mass fraction (Bld) 5.0 % Invalid Interpretation Code < 7 [facility] Otheron 01-01-2017 Negative Invalid Interpretation Code [facility] 0=No Invalid Interpretation Code [facility] 4 Invalid Interpretation Code [facility] Risk Level 2= 4-6 Invalid Interpretation Code [facility] 0= N/A Invalid Interpretation Code [facility] 0-N/A Invalid Interpretation Code [facility] 1=Controlled Invalid Interpretation Code [facility] 1=Yes Invalid Interpretation Code [facility] 0 Invalid Interpretation Code [facility] Negative Invalid Interpretation Code [facility] 0 Invalid Interpretation Code [facility] 0=No Invalid Interpretation Code [facility] 4 Invalid Interpretation Code [facility] Risk Level 2= 4-6 Invalid Interpretation Code [facility] 0= N/A Invalid Interpretation Code [facility] 0-N/A Invalid Interpretation Code [facility] 1=Controlled Invalid Interpretation Code [facility] 1=Yes Invalid Interpretation Code [facility] Otheron 12-06-2016 Negative Invalid Interpretation Code [facility] Negative Invalid Interpretation Code [facility] Otheron 11-06-2016 Urinalysis specialist review [employer]p [employer] (Unsp spec) mod leuk, wnl Invalid Interpretation Code [facility] Urinalysis specialist review [employer]p [employer] (Unsp spec) mod leuk, wnl Invalid Interpretation Code [facility] Otheron 08-21-2016 Not ready Invalid Interpretation Code [facility] No Invalid Interpretation Code [facility] Contemplation Invalid Interpretation Code [facility] Benefits of quitting Invalid Interpretation Code [facility] 10.0 Count Invalid Interpretation Code [facility] 7 Invalid Interpretation Code [facility] Charly Invalid Interpretation [facility] Current Invalid Interpretation [facility] Not ready Invalid Interpretation [facility] No Invalid Interpretation [facility] Contemplation Invalid Interpretation [facility] Benefits of quitting Invalid Interpretation [facility] 10.0 Count Invalid Interpretation [facility] 7 Invalid Interpretation [facility] Charly Invalid Interpretation [facility] Current Invalid Interpretation [facility] Metabolic Panelon 06-12-2016 Protein mass conc Provide self-help materials Invalid Interpretation [facility] Protein Provide self-help materials Invalid Interpretation [facility] Otheron 06-12-2016 Yes Invalid Interpretation [facility] Contemplation Invalid Interpretation [facility] Strong advice to quit Invalid Interpretation [facility] Woman Invalid Interpretation [facility] 10.0 Count Invalid Interpretation [facility] 7 Invalid Interpretation [facility] charly e Invalid Interpretation [facility] Current Invalid Interpretation [facility] Provide self-help materials Invalid Interpretation [facility] Yes Invalid Interpretation [facility] Contemplation Invalid Interpretation [facility] Strong advice to quit Invalid Interpretation [facility] Woman Invalid Interpretation [facility] 10.0 Count Invalid Interpretation [facility] 7 Invalid Interpretation [facility] charly segundo Invalid Interpretation [facility] Current Invalid Interpretation [facility] Tasia 04-10-2016 Pre-contemplation Invalid Interpretation [facility] Not Ready Invalid Interpretation [facility] Benefits of quitting Invalid Interpretation [facility] No Invalid Interpretation [facility] Woman Invalid Interpretation [facility] 10.0 Count Invalid Interpretation [facility] 7 Invalid Interpretation [facility] Current Invalid Interpretation [facility] Charly Invalid Interpretation [facility] Not Ready Invalid Interpretation [facility] Pre-contemplation Invalid Interpretation [facility] No Invalid Interpretation [facility] Benefits of quitting Invalid Interpretation [facility] Woman Invalid Interpretation [facility] 10.0 Count Invalid Interpretation [facility] 7 Invalid Interpretation [facility] Current Invalid Interpretation [facility] Charly Invalid Interpretation [facility] Otheron 03-20-2016 10.0 Count Invalid Interpretation [facility] Woman Invalid Interpretation [facility] Not Ready Invalid Interpretation [facility] No Invalid Interpretation [facility] Contemplation Invalid Interpretation [facility] Current Invalid Interpretation [facility] Charly Purnima Invalid Interpretation [facility] 7 Invalid Interpretation [facility] Benefits of quitting Invalid Interpretation [facility] 10.0 Count Invalid Interpretation [facility] Woman Invalid Interpretation [facility] Not Ready Invalid Interpretation [facility] No Invalid Interpretation [facility] Contemplation Invalid Interpretation [facility] Current Invalid Interpretation [facility] Charly Purnima Invalid Interpretation [facility] 7 Invalid Interpretation [facility] Benefits of quitting Invalid Interpretation [facility] Otheron 12-08-2015 Urinalysis specialist review [employer]p [employer] (Unsp spec) WNL Lg Justina Invalid Interpretation [facility] Urinalysis specialist review [employer] (Unsp spec) WNL Lg Justina Invalid Interpretation [facility] Otheron 09-09-2015 Negative Invalid Interpretation Code NEGATIVE [facility] Negative Invalid Interpretation Code NEGATIVE [facility] Otheron 09-08-2015 290 Invalid Interpretation [facility] 280 Invalid Interpretation [facility] Negative Invalid Interpretation [facility] 290 Invalid Interpretation [facility] 280 Invalid Interpretation [facility] Negative Invalid Interpretation [facility] Vital Signs Date Time Vital Sign Value Performing Clinician Facility 02-08-2025 12:18-0400 Body height 161.29 cm [facility] 02-08-2025 12:18-0400 Body mass index (BMI) [Ratio] 24 kg/m2 [facility] 02-08-2025 12:18-0400 Body weight 62.59 kg [facility] 12-17-2024 08:48-0400 Body height 160 cm Héctor Turner MD Work Phone: [facility] 12-17-2024 08:48-0400 Body mass index (BMI) [Ratio] 25.87 kg/m2 Héctor Turner MD Work Phone: [employer] 12-17-2024 08:48-0400 Body weight 66.22 kg Héctor Turner MD Work Phone: [facility] 12-17-2024 08:48-0400 Diastolic blood pressure 70 mm[Hg] Héctor Turner MD Work Phone: [employer] 12-17-2024 08:48-0400 Systolic blood pressure 121 mm[Hg] Héctor Turner MD Work Phone: [employer] 04-23-2024 21:19-0500 Body temperature 97.9 [degF] Sami Jasso MD Work Phone: [facility] 04-23-2024 21:19-0500 Diastolic blood pressure 77 mm[Hg] Sami Jasso MD Work Phone: [employer] 04-23-2024 21:19-0500 Heart rate 60 /min Sami Jsaso MD Work Phone: [facility] 04-23-2024 21:19-0500 Respiratory rate 16 /min Sami Jasso MD Work Phone: [facility] 04-23-2024 21:19-0500 SaO2% (BldA) [Mass fraction] 98 % Sami Jasso MD Work Phone: [employer] 04-23-2024 21:19-0500 Systolic blood pressure 144 mm[Hg] Sami Jasso MD Work Phone: [employer] 04-23-2024 17:08-0500 Heart rate 58 /min Alberta Medeiros MD Work Phone: [employer] 04-23-2024 17:08-0500 Respiratory rate 16 /min Alberta Medeiros MD Work Phone: [employer] 04-23-2024 15:15-0500 Diastolic blood pressure 79 mm[Hg] Alberta Medeiros MD Work Phone: [employer] 04-23-2024 15:15-0500 Systolic blood pressure 156 mm[Hg] Alberta Medeiros MD Work Phone: [employer] 04-23-2024 14:20-0500 SaO2% (BldA) [Mass fraction] 100 % Alberta Medeiros MD Work Phone: [employer] 04-23-2024 13:42-0500 Body mass index (BMI) [Ratio] 26.57 kg/m2 Alberta Medeiros MD Work Phone: [facility] 04-23-2024 13:42-0500 Body temperature 97.9 [degF] Alberta Medeiros MD Work Phone: [facility] 04-23-2024 13:42-0500 Body weight 68.04 kg Alberta Medeiros MD Work Phone: [facility] 02-18-2024 15:05-0400 Body height 161.3 cm Christopher Ofelia DO Work Phone: [facility] 02-18-2024 15:05-0400 Body mass index (BMI) [Ratio] 26.15 kg/m2 Christopher Ofelia DO Work Phone: [facility] 02-18-2024 15:05-0400 Body weight 68.04 kg Christopher Ofelia DO Work Phone: [facility] 02-18-2024 15:05-0400 Diastolic blood pressure 88 mm[Hg] Christopher Ofelia DO Work Phone: [facility] 02-18-2024 15:05-0400 Systolic blood pressure 138 mm[Hg] Christopher Ofelia DO Work Phone: [facility] 01-27-2024 08:41-0400 Body height 162.56 cm 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: [facility] Work Phone: 01-27-2024 08:41-0400 Body mass index (BMI) [Ratio] 25.6 kg/m2 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: [facility] Work Phone: 01-27-2024 08:41-0400 Body surface area Derived from formula 1.7 m2 Karla Floresallegra CROOKS Work Phone: [facility] Work Phone: 01-27-2024 08:41-0400 Body weight 67.59 kg Karla Amber CLINICAL PHARMACY TECHNICIAN Work Phone: [facility] Work Phone: 01-27-2024 08:41-0400 Diastolic blood pressure 78 mm[Hg] 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: [facility] Work Phone: 01-27-2024 08:41-0400 Heart rate 76 /min 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: [facility] Work Phone: 01-27-2024 08:41-0400 SaO2% (BldA) [Mass fraction] 97 % 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: [facility] Work Phone: 01-27-2024 08:41-0400 Systolic blood pressure 134 mm[Hg] 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: [facility] Work Phone: 12-24-2023 15:30-0400 Body temperature 97.7 [degF] [employer]ING PRESS OPERATOR Karla Clark Work Phone: [facility] 12-24-2023 15:30-0400 Diastolic blood pressure 81 mm[Hg] MET[employer] B[employer]ING PRESS OPERATOR Karla Calrk Work Phone: [facility] 12-24-2023 15:30-0400 Heart rate 68 /min MET[employer] B[employer]ING PRESS OPERATOR Karla Clark Work Phone: [facility] 12-24-2023 15:30-0400 Respiratory rate 16 /min MET[employer]ING PRESS OPERATOR Karla Clark Work Phone: [facility] 12-24-2023 15:30-0400 SaO2% (BldA) [Mass fraction] 97 % MET[employer] B[employer]ING PRESS OPERATOR Karla Clark Work Phone: [facility] 12-24-2023 15:30-0400 Systolic blood pressure 121 mm[Hg] METAL B[employer]ING PRESS OPERATOR Karla Amber Work Phone: [facility] 12-23-2023 14:14-0400 Body height 160.02 cm METAL B[employer]ING PRESS OPERATOR Karla Clark Work Phone: [facility] 12-23-2023 08:54-0400 Body weight 67.05 kg METAL B[employer]ING PRESS OPERATOR Karla Clark Work Phone: [facility] 12-16-2023 13:02-0400 Body height 160.02 cm METAL B[employer]ING PRESS OPERATOR Karla Floresen Work Phone: [facility] 12-16-2023 13:02-0400 Body temperature 98 [degF] METAL B[employer]ING PRESS OPERATOR Karla Clark Work Phone: [facility] 12-16-2023 13:02-0400 Body weight 63.5 kg METAL B[employer]ING PRESS OPERATOR Karla Clark Work Phone: [facility] 12-16-2023 13:02-0400 Diastolic blood pressure 75 mm[Hg] METAL BONDING PRESS OPERATOR Karla Floresen Work Phone: [facility] 12-16-2023 13:02-0400 Heart rate 74 /min METAL B[employer]ING PRESS OPERATOR Karla Clark Work Phone: [facility] 12-16-2023 13:02-0400 Respiratory rate 16 /min MET[employer] B[employer]ING PRESS OPERATOR Karla Clark Work Phone: [facility] 12-16-2023 13:02-0400 SaO2% (BldA) [Mass fraction] 100 % METAL B[employer]ING PRESS OPERATOR Karla Clark Work Phone: [facility] 12-16-2023 13:02-0400 Systolic blood pressure 127 mm[Hg] METAL BONDING PRESS OPERATOR Karla Floresen Work Phone: [facility] 10-04-2023 14:17-0400 Diastolic blood pressure 88 mm[Hg] Karla Amber CLINICAL PHARMACY TECHNICIAN Work Phone: [facility] Comment on above: manual cuff 10-04-2023 14:17-0400 Systolic blood pressure 134 mm[Hg] Karlajulius Clark CLINICAL PHARMACY TECHNICIAN Work Phone: [facility] Comment on above: manual cuff 10-04-2023 13:33-0400 Diastolic blood pressure 93 mm[Hg] Karla Clark CNP Work Phone: [facility] Work Phone: 10-04-2023 13:33-0400 Systolic blood pressure 148 mm[Hg] Karla Clark CNP Work Phone: [facility] Work Phone: 10-04-2023 13:22-0400 Body height 162.56 cm Karla Clark CNP Work Phone: [facility] Work Phone: 10-04-2023 13:22-0400 Body mass index (BMI) [Ratio] 25.2 kg/m2 Karla Clark CNP Work Phone: [facility] Work Phone: 10-04-2023 13:22-0400 Body surface area Derived from formula 1.7 m2 Karla Clark CNP Work Phone: [facility] Work Phone: 10-04-2023 13:22-0400 Body weight 66.68 kg Karla Clark CNP Work Phone: [facility] Work Phone: 10-04-2023 13:22-0400 Diastolic blood pressure 88 mm[Hg] Karla Clark CNP Work Phone: [facility] Work Phone: 10-04-2023 13:22-0400 Heart rate 77 /min Karla Clark CNP Work Phone: [facility] Work Phone: 10-04-2023 13:22-0400 SaO2% (BldA) [Mass fraction] 98 % Karla Clark CNP Work Phone: [facility] Work Phone: 10-04-2023 13:22-0400 Systolic blood pressure 142 mm[Hg] Karla Clark CNP Work Phone: [facility] Work Phone: 08-20-2023 16:49-0400 Diastolic blood pressure 73 mm[Hg] [facility] 08-20-2023 16:49-0400 Heart rate 69 /min [facility] 08-20-2023 16:49-0400 Respiratory rate 69 /min [facility] 08-20-2023 16:49-0400 SaO2% (BldA) [Mass fraction] 98 % [facility] 08-20-2023 16:49-0400 Systolic blood pressure 135 mm[Hg] [facility] 08-20-2023 15:57-0400 Body temperature 97.7 [degF] [facility] 08-20-2023 15:22-0400 Inhaled oxygen flow rate 8 L/min [facility] 08-20-2023 14:26-0400 Body height 161.29 cm [facility] 08-20-2023 14:26-0400 Body mass index (BMI) [Ratio] 25.4 kg/m2 [facility] 08-20-2023 14:26-0400 Body weight 66.22 kg [facility] 08-20-2023 10:56-0400 Body weight 67.1 kg [facility] 08-20-2023 07:30-0400 Body temperature 97.4 [degF] [facility] 08-20-2023 07:30-0400 Diastolic blood pressure 87 mm[Hg] [facility] 08-20-2023 07:30-0400 Heart rate 67 /min [facility] 08-20-2023 07:30-0400 Respiratory rate 18 /min [facility] 08-20-2023 07:30-0400 SaO2% (BldA) [Mass fraction] 99 % [facility] 08-20-2023 07:30-0400 Systolic blood pressure 143 mm[Hg] [facility] 08-19-2023 09:00-0400 Body weight 67.1 kg [facility] 08-16-2023 14:0400 Body height 161.29 cm [facility] 08-15-2023 19:270400 Body temperature 97.2 [degF] [facility] 08-15-2023 19:27-0400 Diastolic blood pressure 63 mm[Hg] [facility] 08-15-2023 19:27-0400 Heart rate 71 /min [facility] 08-15-2023 19:27-0400 Respiratory rate 20 /min [facility] 08-15-2023 19:27-0400 SaO2% (BldA) [Mass fraction] 99 % [facility] 08-15-2023 19:27-0400 Systolic blood pressure 133 mm[Hg] [facility] 08-15-2023 [id number] Body height 160.02 cm [facility] 08-15-2023 [id number] Body weight 66.67 kg [facility] 05-22-2023 10:50-0500 Body height 162.56 cm Karla Clark CNP Work Phone: [facility] 05-22-2023 10:50-0500 Body mass index (BMI) [Ratio] 24.8 kg/m2 Karla Clark CNP Work Phone: [facility] 05-22-2023 10:50-0500 Body surface area Derived from formula 1.7 m2 Karla Clark CNP Work Phone: [facility] 05-22-2023 10:50-0500 Body weight 65.59 kg Karla Clark CNP Work Phone: [facility] 05-22-2023 10:50-0500 Diastolic blood pressure 89 mm[Hg] Karla Clark CNP Work Phone: [facility] 05-22-2023 10:50-0500 Heart rate 75 /min Karla Clark CNP Work Phone: [facility] 05-22-2023 10:50-0500 SaO2% (BldA) [Mass fraction] 95 % Karlajulius Floresen CLINICAL PHARMACY TECHNICIAN Work Phone: [facility] 05-22-2023 10:50-0500 Systolic blood pressure 138 mm[Hg] Akrlajulius Clark CLINICAL PHARMACY TECHNICIAN Work Phone: [facility] 03-28-2023 07:30-0400 Body temperature 97.9 [degF] METAL BONDING PRESS OPERATOR Karlajulius Floresen Work Phone: [facility] 03-28-2023 07:30-0400 Diastolic blood pressure 71 mm[Hg] METAL BONDING PRESS OPERATOR Karlajulius Floresen Work Phone: [facility] 03-28-2023 07:30-0400 Heart rate 95 /min METAL B[employer]ING PRESS OPERATOR Karlajulius Clark Work Phone: [facility] 03-28-2023 07:30-0400 Respiratory rate 18 /min MET[employer] B[employer]ING PRESS OPERATOR Karla Clark Work Phone: [facility] 03-28-2023 07:30-0400 SaO2% (BldA) [Mass fraction] 95 % METAL B[employer]ING PRESS OPERATOR Karlajulius Floresen Work Phone: [facility] 03-28-2023 07:30-0400 Systolic blood pressure 121 mm[Hg] METAL BONDING PRESS OPERATOR Karlajulius Floresen Work Phone: [facility] 03-27-2023 11:00-0400 Body height 160.02 cm METAL BONDING PRESS OPERATOR Karlajulius Floresen Work Phone: [facility] 03-26-2023 00:59-0400 Body weight 63.5 kg METAL B[employer]ING PRESS OPERATOR Karlajulius Floresen Work Phone: [facility] 03-15-2023 07:30-0400 Body temperature 97.9 [degF] METAL BONDING PRESS OPERATOR Karlajulius Clark Work Phone: [facility] 03-15-2023 07:30-0400 Diastolic blood pressure 72 mm[Hg] METAL BONDING PRESS OPERATOR Karla Clark Work Phone: [facility] 03-15-2023 07:30-0400 Heart rate 68 /min METAL B[employer]ING PRESS OPERATOR Karla Clark Work Phone: [facility] 03-15-2023 07:30-0400 Respiratory rate 16 /min METAL BONDING PRESS OPERATOR Karla Clark Work Phone: [facility] 03-15-2023 07:30-0400 SaO2% (BldA) [Mass fraction] 100 % METAL B[employer]ING PRESS OPERATOR Karla Clark Work Phone: [facility] 03-15-2023 07:30-0400 Systolic blood pressure 136 mm[Hg] METAL BONDING PRESS OPERATOR Karla Clark Work Phone: [facility] 03-12-2023 14:52-0400 Body height 160.02 cm METAL BONDING PRESS OPERATOR Karla Clark Work Phone: [facility] 03-12-2023 00:34-0400 Body weight 63.5 kg METAL BONDING PRESS OPERATOR Karla Clark Work Phone: [facility] 02-28-2023 09:35-0400 Body height 162.56 cm Karla Clark CNP Work Phone: [facility] 02-28-2023 09:35-0400 Body mass index (BMI) [Ratio] 24 kg/m2 Karla Clark CNP Work Phone: [facility] 02-28-2023 09:35-0400 Body surface area Derived from formula 1.7 m2 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: [facility] 02-28-2023 09:35-0400 Body weight 63.41 kg 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: [facility] 02-28-2023 09:35-0400 Diastolic blood pressure 76 mm[Hg] Karla Amber CLINICAL PHARMACY TECHNICIAN Work Phone: [facility] 02-28-2023 09:35-0400 Heart rate 83 /min Karla Amber CLINICAL PHARMACY TECHNICIAN Work Phone: [facility] 02-28-2023 09:35-0400 SaO2% (BldA) [Mass fraction] 94 % Karla Clark CNP Work Phone: [facility] 02-28-2023 09:35-0400 Systolic blood pressure 111 mm[Hg] 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: [facility] 12-12-2022 13:45-0400 Body height Emory Adame Other [employer] Other 12-12-2022 13:45-0400 Body mass index (BMI) [Ratio] 25.6 kg/m2 Emory Adame Other [employer] Other 12-12-2022 13:45-0400 Body weight 63.5 kg Emory Adame Other [employer] Other 11-19-2022 09:15-0400 Body height 162.56 cm 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: [facility] 11-19-2022 09:15-0400 Body mass index (BMI) [Ratio] 23.6 kg/m2 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: [facility] 11-19-2022 09:15-0400 Body surface area Derived from formula 1.7 m2 Karla Clark CNP Work Phone: [facility] 11-19-2022 09:15-0400 Body temperature 97.6 [degF] 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: [facility] 11-19-2022 09:15-0400 Body weight 62.32 kg 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: [facility] 11-19-2022 09:15-0400 Diastolic blood pressure 60 mm[Hg] 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: [facility] 11-19-2022 09:15-0400 Heart rate 94 /min 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: [facility] 11-19-2022 09:15-0400 SaO2% (BldA) [Mass fraction] 97 % Karla Clark CNP Work Phone: [facility] 11-19-2022 09:15-0400 Systolic blood pressure 133 mm[Hg] Karla Clark CNP Work Phone: [facility] 09-18-2022 13:57-0400 Body height 162.56 cm Karla Clark CNP Work Phone: [facility] Work Phone: 09-18-2022 13:57-0400 Body mass index (BMI) [Ratio] 24.9 kg/m2 Karla Clark CNP Work Phone: [facility] Work Phone: 09-18-2022 13:57-0400 Body surface area Derived from formula 1.7 m2 Karla Clark CNP Work Phone: [facility] Work Phone: 09-18-2022 13:57-0400 Body temperature 97.6 [degF] Karla Clark CNP Work Phone: [facility] Work Phone: 09-18-2022 13:57-0400 Body weight 65.68 kg Karla Clark CNP Work Phone: [facility] Work Phone: 09-18-2022 13:57-0400 Diastolic blood pressure 74 mm[Hg] Karla Clark CNP Work Phone: [facility] Work Phone: 09-18-2022 13:57-0400 Heart rate 80 /min Karla Clark CNP Work Phone: [facility] Work Phone: 09-18-2022 13:57-0400 SaO2% (BldA) [Mass fraction] 98 % Karla Clark CNP Work Phone: [facility] Work Phone: 09-18-2022 13:57-0400 Systolic blood pressure 142 mm[Hg] 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: [facility] Work Phone: 09-14-2022 15:10-0400 Body temperature 98.6 [degF] PHYSICIAN NO [facility] 09-14-2022 15:10-0400 Diastolic blood pressure 75 mm[Hg] PHYSICIAN NO [facility] 09-14-2022 15:10-0400 Heart rate 81 /min PHYSICIAN NO [facility] 09-14-2022 15:10-0400 Respiratory rate 20 /min PHYSICIAN NO [facility] 09-14-2022 15:10-0400 SaO2% (BldA) [Mass fraction] 95 % PHYSICIAN NO [facility] 09-14-2022 15:10-0400 Systolic blood pressure 144 mm[Hg] PHYSICIAN NO [facility] 09-14-2022 06:43-0400 Body weight 72.[address] [facility] 09-14-2022 00:00-0400 Inhaled oxygen flow rate 1 L/min PHYSICIAN NO [facility] 09-13-2022 08:33-0400 Body height 157.[address] [facility] 09-13-2022 08:33-0400 Body mass index (BMI) [Ratio] 26.2 kg/m2 PHYSICIAN NO [facility] 09-10-2022 09:45-0400 Body height Emory Adame Other [employer] Other 09-10-2022 09:45-0400 Body mass index (BMI) [Ratio] 26.15 kg/m2 Emory Adame Other [employer] Other 09-10-2022 09:45-0400 Body weight 64.86 kg Emory Adame Other [employer] Other 08-27-2022 08:26-0400 Body height 162.56 cm Karla Clark CNP Work Phone: [facility] Work Phone: 08-27-2022 08:26-0400 Body mass index (BMI) [Ratio] 24.6 kg/m2 Karla Clark CNP Work Phone: [facility] Work Phone: 08-27-2022 08:26-0400 Body surface area Derived from formula 1.7 m2 Karla Clark CNP Work Phone: [facility] Work Phone: 08-27-2022 08:26-0400 Body temperature 97 [degF] Karla Clark CNP Work Phone: [facility] Work Phone: 08-27-2022 08:26-0400 Body weight 65.14 kg Karla Clark CNP Work Phone: [facility] Work Phone: 08-27-2022 08:26-0400 Diastolic blood pressure 73 mm[Hg] Karla Clark CNP Work Phone: [facility] Work Phone: 08-27-2022 08:26-0400 Heart rate 66 /min Karla Clark CNP Work Phone: [facility] Work Phone: 08-27-2022 08:26-0400 SaO2% (BldA) [Mass fraction] 96 % Karla Clark CNP Work Phone: [facility] Work Phone: 08-27-2022 08:26-0400 Systolic blood pressure 115 mm[Hg] Karla Clark CNP Work Phone: [facility] Work Phone: 06-18-2022 11:23-0500 Body height 162.56 cm Karla Clark CNP Work Phone: [facility] Work Phone: 06-18-2022 11:23-0500 Body mass index (BMI) [Ratio] 24.9 kg/m2 Karla Clark CNP Work Phone: [facility] Work Phone: 06-18-2022 11:23-0500 Body surface area Derived from formula 1.7 m2 Karla Clark CNP Work Phone: [facility] Work Phone: 06-18-2022 11:23-0500 Body temperature 97.6 [degF] Karla Clark CNP Work Phone: [facility] Work Phone: 06-18-2022 11:23-0500 Body weight 65.86 kg Karla Clark CNP Work Phone: [facility] Work Phone: 06-18-2022 11:23-0500 Diastolic blood pressure 78 mm[Hg] Karla Clark CNP Work Phone: [facility] Work Phone: 06-18-2022 11:23-0500 Heart rate 62 /min Karla Clark CNP Work Phone: [facility] Work Phone: 06-18-2022 11:23-0500 SaO2% (BldA) [Mass fraction] 98 % Karla Clark CNP Work Phone: [facility] Work Phone: 06-18-2022 11:23-0500 Systolic blood pressure 125 mm[Hg] Karla Clark CNP Work Phone: [facility] Work Phone: 03-20-2022 13:56-0400 Body height 162.56 cm Karla Clark CNP Work Phone: [facility] Work Phone: 03-20-2022 13:56-0400 Body mass index (BMI) [Ratio] 24.4 kg/m2 Karla Clark CNP Work Phone: [facility] Work Phone: 03-20-2022 13:56-0400 Body surface area Derived from formula 1.7 m2 Karla Clark CNP Work Phone: [facility] Work Phone: 03-20-2022 13:56-0400 Body temperature 99.5 [degF] Karla Clark CNP Work Phone: [facility] Work Phone: 03-20-2022 13:56-0400 Body weight 64.41 kg Karla Clark CNP Work Phone: [facility] Work Phone: 03-20-2022 13:56-0400 Diastolic blood pressure 82 mm[Hg] Karla Clark CNP Work Phone: [facility] Work Phone: 03-20-2022 13:56-0400 Heart rate 69 /min Karla Clark CNP Work Phone: [facility] Work Phone: 03-20-2022 13:56-0400 Heart Rate Rhythm 1 1 Karla Clark CNP Work Phone: [facility] Work Phone: 03-20-2022 13:56-0400 SaO2% (BldA) [Mass fraction] 98 % Karla Clark CNP Work Phone: [facility] Work Phone: 03-20-2022 13:56-0400 Systolic blood pressure 126 mm[Hg] Karla Clark CNP Work Phone: [facility] Work Phone: 12-20-2021 14:07-0400 Body height 162.56 cm Karla Clark CNP Work Phone: [facility] Work Phone: 12-20-2021 14:07-0400 Body mass index (BMI) [Ratio] 24.5 kg/m2 Karla Clark CNP Work Phone: [facility] Work Phone: 12-20-2021 14:07-0400 Body surface area Derived from formula 1.7 m2 Karla Clark CNP Work Phone: [facility] Work Phone: 12-20-2021 14:07-0400 Body temperature 97.6 [degF] Karla Clark CNP Work Phone: [facility] Work Phone: 12-20-2021 14:07-0400 Body weight 64.86 kg Karla Clark CNP Work Phone: [facility] Work Phone: 12-20-2021 14:07-0400 Diastolic blood pressure 80 mm[Hg] Karla Clark CNP Work Phone: [facility] Work Phone: 12-20-2021 14:07-0400 Heart rate 92 /min Karla Clark CNP Work Phone: [facility] Work Phone: 12-20-2021 14:07-0400 SaO2% (BldA) [Mass fraction] 98 % Karla Clark CNP Work Phone: [facility] Work Phone: 12-20-2021 14:07-0400 Systolic blood pressure 130 mm[Hg] Karla Clark CNP Work Phone: [facility] Work Phone: 11-03-2021 10:00-0400 Body height 162.56 cm Karla Clark CNP Work Phone: [facility] Work Phone: 11-03-2021 10:00-0400 Body mass index (BMI) [Ratio] 24.3 kg/m2 Karla Clark CNP Work Phone: [facility] Work Phone: 11-03-2021 10:00-0400 Body surface area Derived from formula 1.69 m2 Karla Clark CNP Work Phone: [facility] Work Phone: 11-03-2021 10:00-0400 Body surface area Derived from formula 1.7 m2 Karla Clakr CNP Work Phone: [facility] Work Phone: 11-03-2021 10:00-0400 Body temperature 97.6 [degF] Karla Clark CNP Work Phone: [facility] Work Phone: 11-03-2021 10:00-0400 Body weight 64.14 kg Karla Clark CNP Work Phone: [facility] Work Phone: 11-03-2021 10:00-0400 Diastolic blood pressure 80 mm[Hg] Karla Clark CNP Work Phone: [facility] Work Phone: 11-03-2021 10:00-0400 Heart rate 70 /min Karla Clark CNP Work Phone: [facility] Work Phone: 11-03-2021 10:00-0400 SaO2% (BldA) [Mass fraction] 98 % Karla Clark CNP Work Phone: [facility] Work Phone: 11-03-2021 10:00-0400 Systolic blood pressure 126 mm[Hg] Karla Clark CNP Work Phone: [facility] Work Phone: 07-28-2021 13:20-0500 Body height 162.56 cm Karla Clark CNP Work Phone: [facility] Work Phone: 07-28-2021 13:20-0500 Body mass index (BMI) [Ratio] 24.4 kg/m2 Karla Clark CNP Work Phone: [facility] Work Phone: 07-28-2021 13:20-0500 Body surface area Derived from formula 1.69 m2 Karla Clark CNP Work Phone: [facility] Work Phone: 07-28-2021 13:20-0500 Body surface area Derived from formula 1.7 m2 Karla Clark CNP Work Phone: [facility] Work Phone: 07-28-2021 13:20-0500 Body temperature 98.6 [degF] Karla Clark CNP Work Phone: [facility] Work Phone: 07-28-2021 13:20-0500 Body weight 64.59 kg Karla Clark CNP Work Phone: [facility] Work Phone: 07-28-2021 13:20-0500 Diastolic blood pressure 82 mm[Hg] Karla Clark CNP Work Phone: [facility] Work Phone: 07-28-2021 13:20-0500 Heart rate 80 /min Karla Clark CNP Work Phone: [facility] Work Phone: 07-28-2021 13:20-0500 Respiratory rate 18 /min Karla Clark CNP Work Phone: [facility] Work Phone: 07-28-2021 13:20-0500 SaO2% (BldA) [Mass fraction] 98 % Karla Clark CNP Work Phone: [facility] Work Phone: 07-28-2021 13:20-0500 Systolic blood pressure 134 mm[Hg] Karla Clark CNP Work Phone: [facility] Work Phone: 05-08-2021 10:04-0500 Body height 162.56 cm Karla Clark CNP Work Phone: [facility] Work Phone: 05-08-2021 10:04-0500 Body mass index (BMI) [Ratio] 24.2 kg/m2 Karla Clark CNP Work Phone: [facility] Work Phone: 05-08-2021 10:04-0500 Body surface area Derived from formula 1.69 m2 Karla Clark CNP Work Phone: [facility] Work Phone: 05-08-2021 10:04-0500 Body surface area Derived from formula 1.7 m2 Karla Clark CNP Work Phone: [facility] Work Phone: 05-08-2021 10:04-0500 Body temperature 99.1 [degF] Karla Clark CNP Work Phone: [facility] Work Phone: 05-08-2021 10:04-0500 Body weight 64.05 kg 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: [facility] Work Phone: 05-08-2021 10:04-0500 Diastolic blood pressure 78 mm[Hg] Karla Clark CNP Work Phone: [facility] Work Phone: 05-08-2021 10:04-0500 Heart rate 69 /min Karla Clark CNP Work Phone: [facility] Work Phone: 05-08-2021 10:04-0500 SaO2% (BldA) [Mass fraction] 99 % Karla Clark CNP Work Phone: [facility] Work Phone: 05-08-2021 10:04-0500 Systolic blood pressure 132 mm[Hg] Karla Clark CNP Work Phone: [facility] Work Phone: 06-17-2020 09:49-0500 BMI (Body Mass Index) 24.9 kg/m2 Karla Amber [facility] Work Phone: 06-17-2020 09:49-0500 Body Temperature 97.3 [degF] Karlajulius Floresen [facility] Work Phone: 06-17-2020 09:49-0500 Body weight 65.86 kg Karla Clark [facility] Work Phone: 06-17-2020 09:49-0500 BP Diastolic 70 mm[Hg] [facility] Work Phone: 06-17-2020 09:49-0500 BP Systolic 100 mm[Hg] [facility] Work Phone: 06-17-2020 09:49-0500 BSA (Body Surface Area) 1.71 m2 [facility] Work Phone: 06-17-2020 09:49-0500 Height 162.56 cm [facility] Work Phone: 06-17-2020 09:49-0500 Pulse (Heart Rate) 79 /min [facility] Work Phone: 06-17-2020 09:49-0500 Pulse Oximetry 97 % [facility] Work Phone: 06-17-2020 09:49-0500 Respiratory Rate 18 /min [facility] Work Phone: 06-17-2020 09:49-0500 SaO2% (BldA) [Mass fraction] 97 % [facility] Work Phone: [facility] Work Phone: 06-08-2020 10:39-0500 BP Diastolic 72 mm[Hg] [place], [place] 06-08-2020 10:39-0500 BP Systolic 137 mm[Hg] [facility] [place] 06-08-2020 10:39-0500 Pulse (Heart Rate) 84 /min [place], [place] 06-08-2020 10:39-0500 Pulse Oximetry 98 % [place], [place] 06-08-2020 10:39-0500 Respiratory Rate 12 /min [facility] [place] 06-06-2020 13:08-0500 BMI (Body Mass Index) 25 kg/m2 [facility] Work Phone: 06-06-2020 13:08-0500 Body Temperature 96.2 [degF] [facility] Work Phone: 06-06-2020 13:08-0500 Body weight 65.95 kg [facility] Work Phone: 06-06-2020 13:08-0500 BP Diastolic 86 mm[Hg] [facility] Work Phone: 06-06-2020 13:08-0500 BP Systolic 128 mm[Hg] [facility] Work Phone: 06-06-2020 13:08-0500 BSA (Body Surface Area) 1.71 m2 [facility] Work Phone: 06-06-2020 13:08-0500 Height 162.56 cm [facility] Work Phone: 06-06-2020 13:08-0500 Respiratory Rate 18 /min [facility] Work Phone: 05-06-2020 14:04-0500 BMI (Body Mass Index) 25.2 kg/m2 [facility] Work Phone: 05-06-2020 14:04-0500 Body weight 66.68 kg [facility] Work Phone: 05-06-2020 14:04-0500 BP Diastolic 70 mm[Hg] [facility] Work Phone: 05-06-2020 14:04-0500 BP Systolic 116 mm[Hg] [facility] Work Phone: 05-06-2020 14:04-0500 BSA (Body Surface Area) 1.72 m2 [facility] Work Phone: 05-06-2020 14:04-0500 Height 162.56 cm [facility] Work Phone: 05-06-2020 14:04-0500 Pulse (Heart Rate) 72 /min [facility] Work Phone: 05-06-2020 14:04-0500 Pulse Oximetry 96 % [facility] Work Phone: 03-31-2020 14:22-0400 BMI (Body Mass Index) 25.3 kg/m2 [facility] Work Phone: 03-31-2020 14:22-0400 Body Temperature 97.7 [degF] [facility] Work Phone: 03-31-2020 14:22-0400 Body weight 66.95 kg [facility] Work Phone: 03-31-2020 14:22-0400 BP Diastolic 90 mm[Hg] [facility] Work Phone: 03-31-2020 14:22-0400 BP Systolic 142 mm[Hg] [facility] Work Phone: 03-31-2020 14:22-0400 BSA (Body Surface Area) 1.72 m2 [facility] Work Phone: 03-31-2020 14:22-0400 Height 162.56 cm [facility] Work Phone: 03-31-2020 14:22-0400 Pulse (Heart Rate) 97 /min [facility] Work Phone: 03-31-2020 14:22-0400 Pulse Oximetry 97 % [facility] Work Phone: 03-31-2020 14:22-0400 Respiratory Rate 18 /min [facility] Work Phone: 03-14-2020 14:01-0400 BMI (Body Mass Index) 25.2 kg/m2 [facility] Work Phone: 03-14-2020 14:01-0400 Body Temperature 96.3 [degF] [facility] Work Phone: 03-14-2020 14:01-0400 Body weight 66.59 kg [facility] Work Phone: 03-14-2020 14:01-0400 BP Diastolic 86 mm[Hg] [facility] Work Phone: 03-14-2020 14:01-0400 BP Systolic 130 mm[Hg] [facility] Work Phone: 03-14-2020 14:01-0400 BSA (Body Surface Area) 1.72 m2 [facility] Work Phone: 03-14-2020 14:01-0400 Height 162.56 cm [facility] Work Phone: 03-14-2020 14:01-0400 Pulse (Heart Rate) 83 /min [facility] Work Phone: 03-14-2020 14:01-0400 Respiratory Rate 18 /min [facility] Work Phone: 02-26-2020 11:04-0400 BMI (Body Mass Index) 25.8 kg/m2 [facility] Work Phone: 02-26-2020 11:04-0400 Body Temperature 98.1 [degF] [facility] Work Phone: 02-26-2020 11:04-0400 Body weight 65.95 kg [facility] Work Phone: 02-26-2020 11:04-0400 BP Diastolic 90 mm[Hg] [facility] Work Phone: 02-26-2020 11:04-0400 BP Systolic 144 mm[Hg] [facility] Work Phone: 02-26-2020 11:04-0400 BSA (Body Surface Area) 1.69 m2 [facility] Work Phone: 02-26-2020 11:04-0400 Height 160.02 cm [facility] Work Phone: 02-26-2020 11:04-0400 Pulse (Heart Rate) 62 /min [facility] Work Phone: 02-26-2020 11:04-0400 Pulse Oximetry 95 % [facility] Work Phone: 02-26-2020 11:04-0400 Respiratory Rate 18 /min [facility] Work Phone: 11-19-2019 09:03-0400 BMI (Body Mass Index) 27.5 kg/m2 [facility] Work Phone: Comment on above: self 11-19-2019 09:03-0400 Body weight 70.31 kg [facility] Work Phone: Comment on above: self 11-19-2019 09:03-0400 BSA (Body Surface Area) 1.74 m2 [facility] Work Phone: Comment on above: self 11-19-2019 09:03-0400 Height 160.02 cm [facility] Work Phone: Comment on above: self 07-23-2019 14:03-0500 BMI (Body Mass Index) 27 kg/m2 [facility] Work Phone: 07-23-2019 14:03-0500 Body Temperature 99.9 [degF] [facility] Work Phone: 07-23-2019 14:03-0500 Body weight 69.04 kg [facility] Work Phone: 07-23-2019 14:03-0500 BP Diastolic 82 mm[Hg] [facility] Work Phone: 07-23-2019 14:03-0500 BP Systolic 110 mm[Hg] [facility] Work Phone: 07-23-2019 14:03-0500 BSA (Body Surface Area) 1.72 m2 [facility] Work Phone: 07-23-2019 14:03-0500 Height 160.02 cm [facility] Work Phone: 07-23-2019 14:03-0500 Pulse (Heart Rate) 80 /min [facility] Work Phone: 07-23-2019 14:03-0500 Pulse Oximetry 96 % [facility] Work Phone: 07-23-2019 14:03-0500 Respiratory Rate 18 /min [facility] Work Phone: 06-05-2019 13:43-0500 BMI (Body Mass Index) 27.2 kg/m2 [facility] Work Phone: 06-05-2019 13:43-0500 Body weight 69.76 kg [facility] Work Phone: 06-05-2019 13:43-0500 BP Diastolic 80 mm[Hg] [facility] Work Phone: 06-05-2019 13:43-0500 BP Systolic 118 mm[Hg] [facility] Work Phone: 06-05-2019 13:43-0500 BSA (Body Surface Area) 1.73 m2 [facility] Work Phone: 06-05-2019 13:43-0500 Height 160.02 cm [facility] Work Phone: 06-05-2019 13:43-0500 Pulse (Heart Rate) 73 /min [facility] Work Phone: 06-05-2019 13:43-0500 Pulse Oximetry 96 % [facility] Work Phone: 04-23-2019 13:59-0500 BMI (Body Mass Index) 27.1 kg/m2 [facility] Work Phone: 04-23-2019 13:59-0500 Body weight 69.4 kg [facility] Work Phone: 04-23-2019 13:59-0500 BP Diastolic 76 mm[Hg] [facility] Work Phone: 04-23-2019 13:59-0500 BP Systolic 124 mm[Hg] [facility] Work Phone: 04-23-2019 13:59-0500 BSA (Body Surface Area) 1.73 m2 [facility] Work Phone: 04-23-2019 13:59-0500 Height 160.02 cm [facility] Work Phone: 04-23-2019 13:59-0500 Pulse (Heart Rate) 58 /min [facility] Work Phone: 04-23-2019 13:59-0500 Pulse Oximetry 97 % [facility] Work Phone: 04-15-2019 10:33-0500 BMI (Body Mass Index) 28 kg/m2 [facility] Work Phone: 04-15-2019 10:33-0500 Body Temperature 99.3 [degF] [facility] Work Phone: 04-15-2019 10:33-0500 Body weight 71.76 kg [facility] Work Phone: 04-15-2019 10:33-0500 BP Diastolic 84 mm[Hg] [facility] Work Phone: 04-15-2019 10:33-0500 BP Systolic 120 mm[Hg] [facility] Work Phone: 04-15-2019 10:33-0500 BSA (Body Surface Area) 1.75 m2 [facility] Work Phone: 04-15-2019 10:33-0500 Height 160.02 cm [facility] Work Phone: 04-15-2019 10:33-0500 Pulse (Heart Rate) 83 /min [facility] Work Phone: 04-15-2019 10:33-0500 Pulse Oximetry 97 % [facility] Work Phone: 04-10-2019 12:10-0500 BP Diastolic 85 mm[Hg] [facility] [place] 04-10-2019 12:10-0500 BP Systolic 128 mm[Hg] [facility] [place] 04-10-2019 12:10-0500 Pulse (Heart Rate) 83 /min [facility] 04-10-2019 12:10-0500 Pulse Oximetry 99 % [facility] [place] 04-10-2019 12:10-0500 Respiratory Rate 12 /min [facility] [place] 03-05-2019 09:25-0400 BMI (Body Mass Index) 27.7 kg/m2 [facility] Work Phone: 03-05-2019 09:25-0400 Body Temperature 96.5 [degF] [facility] Work Phone: 03-05-2019 09:25-0400 Body weight 70.94 kg [facility] Work Phone: 03-05-2019 09:25-0400 BP Diastolic 86 mm[Hg] [facility] Work Phone: 03-05-2019 09:25-0400 BP Systolic 110 mm[Hg] [facility] Work Phone: 03-05-2019 09:25-0400 BSA (Body Surface Area) 1.74 m2 [facility] Work Phone: 03-05-2019 09:25-0400 Height 160.02 cm [facility] Work Phone: 03-05-2019 09:25-0400 Pulse (Heart Rate) 86 /min [facility] Work Phone: 03-05-2019 09:25-0400 Pulse Oximetry 97 % [facility] Work Phone: 03-05-2019 09:25-0400 Respiratory Rate 18 /min [facility] Work Phone: 12-22-2018 10:11-0400 BMI (Body Mass Index) 28.4 kg/m2 [facility] Work Phone: 12-22-2018 10:11-0400 Body Temperature 98.2 [degF] [facility] Work Phone: 12-22-2018 10:11-0400 Body weight 72.85 kg [facility] Work Phone: 12-22-2018 10:11-0400 BP Diastolic 80 mm[Hg] [facility] Work Phone: 12-22-2018 10:11-0400 BP Systolic 110 mm[Hg] [facility] Work Phone: 12-22-2018 10:11-0400 BSA (Body Surface Area) 1.76 m2 [facility] Work Phone: 12-22-2018 10:11-0400 Height 160.02 cm [facility] Work Phone: 12-22-2018 10:11-0400 Pulse (Heart Rate) 67 /min [facility] Work Phone: 12-22-2018 10:11-0400 Pulse Oximetry 94 % [facility] Work Phone: 12-22-2018 10:11-0400 Respiratory Rate 14 /min [facility] Work Phone: 11-06-2018 13:55-0400 BMI (Body Mass Index) 28.7 kg/m2 [facility] Work Phone: 11-06-2018 13:55-0400 Body Temperature 97.8 [degF] [facility] Work Phone: 11-06-2018 13:55-0400 Body weight 73.48 kg [facility] Work Phone: 11-06-2018 13:55-0400 BP Diastolic 76 mm[Hg] [facility] Work Phone: 11-06-2018 13:55-0400 BP Systolic 110 mm[Hg] [facility] Work Phone: 11-06-2018 13:55-0400 BSA (Body Surface Area) 1.77 m2 [facility] Work Phone: 11-06-2018 13:55-0400 Height 160.02 cm Karla Clark [facility] Work Phone: 11-06-2018 13:55-0400 Pulse (Heart Rate) 80 /min Karla Clark [facility] Work Phone: 11-06-2018 13:55-0400 Pulse Oximetry 98 % Karla Clark [facility] Work Phone: 11-06-2018 13:55-0400 Respiratory Rate 22 /min Karla Clark [facility] Work Phone: 09-11-2018 10:25-0400 Body height 160.02 cm Karla Clark CNP Work Phone: [facility] Work Phone: 09-11-2018 10:25-0400 Body mass index (BMI) [Ratio] 29.6 kg/m2 Karla Clark CNP Work Phone: [facility] Work Phone: 09-11-2018 10:25-0400 Body surface area Derived from formula 1.79 m2 Karla Clark CNP Work Phone: [facility] Work Phone: 09-11-2018 10:25-0400 Body temperature 97.4 [degF] Karla Clark CNP Work Phone: [facility] Work Phone: 09-11-2018 10:25-0400 Body weight 75.75 kg Karla Clark CNP Work Phone: [facility] Work Phone: 09-11-2018 10:25-0400 Diastolic blood pressure 76 mm[Hg] Karla Clark CNP Work Phone: [facility] Work Phone: 09-11-2018 10:25-0400 Heart rate 78 /min Karla Clark CNP Work Phone: [facility] Work Phone: 09-11-2018 10:25-0400 Pulse Oximetry 99 % Karla Clark [facility] Work Phone: 09-11-2018 10:25-0400 Respiratory rate 22 /min Karla Clark CNP Work Phone: [facility] Work Phone: 09-11-2018 10:25-0400 SaO2% (BldA) [Mass fraction] 99 % Karla Clark CNP Work Phone: [facility] Work Phone: 09-11-2018 10:25-0400 Systolic blood pressure 120 mm[Hg] Karla Clark CNP Work Phone: [facility] Work Phone: 09-04-2018 13:24-0400 Body height 160.02 cm Karla Clark CNP Work Phone: [facility] Work Phone: 09-04-2018 13:24-0400 Body mass index (BMI) [Ratio] 29.8 kg/m2 Karla Clark CNP Work Phone: [facility] Work Phone: 09-04-2018 13:24-0400 Body surface area Derived from formula 1.8 m2 Karla Clark CNP Work Phone: [facility] Work Phone: 09-04-2018 13:24-0400 Body temperature 98.3 [degF] Karla Clark CNP Work Phone: [facility] Work Phone: 09-04-2018 13:24-0400 Body weight 76.3 kg Karla Clark CNP Work Phone: [facility] Work Phone: 09-04-2018 13:24-0400 Diastolic blood pressure 90 mm[Hg] Karla Clark CNP Work Phone: [facility] Work Phone: 09-04-2018 13:24-0400 Heart rate 86 /min Karla Clark CNP Work Phone: [facility] Work Phone: 09-04-2018 13:24-0400 Inhaled oxygen concentration 21 % Karla Clark CNP Work Phone: [facility] Work Phone: 09-04-2018 13:24-0400 Inhaled oxygen flow rate 0 L/min Karla Clark CNP Work Phone: [facility] Work Phone: 09-04-2018 13:24-0400 Respiratory rate 20 /min Karla Clark CNP Work Phone: [facility] Work Phone: 09-04-2018 13:24-0400 Systolic blood pressure 146 mm[Hg] Karla Clark CNP Work Phone: [facility] Work Phone: 07-31-2018 13:37-0500 Body height 160.02 cm Karla Clark CNP Work Phone: [facility] Work Phone: 07-31-2018 13:37-0500 Body mass index (BMI) [Ratio] 29.9 kg/m2 Karla Clark CNP Work Phone: [facility] Work Phone: 07-31-2018 13:37-0500 Body surface area Derived from formula 1.8 m2 Karla Clark CNP Work Phone: [facility] Work Phone: 07-31-2018 13:37-0500 Body temperature 97.9 [degF] Karla Clark CNP Work Phone: [facility] Work Phone: 07-31-2018 13:37-0500 Body weight 76.66 kg Karla Clark CNP Work Phone: [facility] Work Phone: 07-31-2018 13:37-0500 Diastolic blood pressure 74 mm[Hg] Karla Clark CNP Work Phone: [facility] Work Phone: 07-31-2018 13:37-0500 Heart rate 51 /min Karla Clark CNP Work Phone: [facility] Work Phone: 07-31-2018 13:37-0500 Pulse Oximetry 100 % Karla Amber [facility] Work Phone: 07-31-2018 13:37-0500 Respiratory rate 22 /min Karla Clark CNP Work Phone: [facility] Work Phone: 07-31-2018 13:37-0500 SaO2% (BldA) [Mass fraction] 100 % Karla Clark CNP Work Phone: [facility] Work Phone: 07-31-2018 13:37-0500 Systolic blood pressure 122 mm[Hg] Karla Clark CNP Work Phone: [facility] Work Phone: 05-08-2018 17:00-0500 BMI (Body Mass Index) 29.94 kg/m2 [facility] 05-08-2018 17:00-0500 Body Temperature 97.9 [degF] [facility] 05-08-2018 17:00-0500 BP Diastolic 70 mm[Hg] [facility] 05-08-2018 17:00-0500 BP Systolic 124 mm[Hg] [facility] 05-08-2018 17:00-0500 BSA (Body Surface Area) 1.85 m2 [facility] 05-08-2018 17:00-0500 Height 160.02 cm [facility] 05-08-2018 17:00-0500 Pulse (Heart Rate) 70 /min [facility] 05-08-2018 17:00-0500 Pulse Oximetry 99 % [facility] 05-08-2018 17:00-0500 Respiratory Rate 20 /min [facility] 05-08-2018 17:00-0500 Weight 76.66 kg [facility] 05-08-2018 15:00-0500 Body mass index (BMI) [Ratio] 29.9 kg/m2 Karlajulius Clark [facility] Work Phone: [facility] Work Phone: 05-08-2018 15:00-0500 Body surface area Derived from formula 1.8 m2 Karla Amber [facility] Work Phone: [facility] Work Phone: 05-08-2018 15:00-0500 Body weight 76.66 kg Karlajulius Clark [facility] Work Phone: [facility] Work Phone: 03-20-2018 13:39-0400 BMI (Body Mass Index) 30.11 kg/m2 [facility] 03-20-2018 13:39-0400 Body Temperature 97.9 [degF] [facility] 03-20-2018 13:39-0400 BP Diastolic 84 mm[Hg] [facility] 03-20-2018 13:39-0400 BP Systolic 122 mm[Hg] [facility] 03-20-2018 13:39-0400 BSA (Body Surface Area) 1.85 m2 Karla Clark [facility] 03-20-2018 13:39-0400 Height 160.02 cm Karla Amber [facility] 03-20-2018 13:39-0400 Pulse (Heart Rate) 59 /min Karla Clark [facility] 03-20-2018 13:39-0400 Pulse Oximetry 98 % Karlajulius Clark [facility] 03-20-2018 13:39-0400 Respiratory Rate 20 /min Karla Amber [facility] 03-20-2018 13:39-0400 Weight 77.11 kg Karla Amber [facility] 03-20-2018 10:39-0400 Body height 160.02 cm Karla Clark CNP Work Phone: [facility] Work Phone: 03-20-2018 10:39-0400 Body mass index (BMI) [Ratio] 30.1 kg/m2 Karla Clark CNP Work Phone: [facility] Work Phone: 03-20-2018 10:39-0400 Body surface area Derived from formula 1.8 m2 Karla Clark CNP Work Phone: [facility] Work Phone: 03-20-2018 10:39-0400 Body temperature 97.9 [degF] Karla Clark CNP Work Phone: [facility] Work Phone: 03-20-2018 10:39-0400 Body weight 77.11 kg Karla Clark CNP Work Phone: [facility] Work Phone: 03-20-2018 10:39-0400 Diastolic blood pressure 84 mm[Hg] Karla Clark CNP Work Phone: [facility] Work Phone: 03-20-2018 10:39-0400 Heart rate 59 /min 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: [facility] Work Phone: 03-20-2018 10:39-0400 Respiratory rate 20 /min Karla Clark CNP Work Phone: [facility] Work Phone: 03-20-2018 10:39-0400 Systolic blood pressure 122 mm[Hg] Karla Clark CNP Work Phone: [facility] Work Phone: 02-11-2018 17:45-0400 BMI (Body Mass Index) 30.11 kg/m2 [facility] 02-11-2018 17:45-0400 Body Temperature 98.6 [degF] [facility] 02-11-2018 17:45-0400 BP Diastolic 80 mm[Hg] [facility] 02-11-2018 17:45-0400 BP Systolic 124 mm[Hg] [facility] 02-11-2018 17:45-0400 BSA (Body Surface Area) 1.85 m2 [facility] 02-11-2018 17:45-0400 Height 160.02 cm [facility] 02-11-2018 17:45-0400 Pulse (Heart Rate) 72 /min [facility] 02-11-2018 17:45-0400 Pulse Oximetry 97 % [facility] 02-11-2018 17:45-0400 Respiratory Rate 20 /min [facility] 02-11-2018 17:45-0400 Weight 77.11 kg [facility] 02-11-2018 16:45-0400 BMI (Body Mass Index) 30.11 kg/m2 [facility] 02-11-2018 16:45-0400 Body Temperature 98.6 [degF] [facility] 02-11-2018 16:45-0400 BP Diastolic 80 mm[Hg] [facility] 02-11-2018 16:45-0400 BP Systolic 124 mm[Hg] [facility] 02-11-2018 16:45-0400 BSA (Body Surface Area) 1.85 m2 [facility] 02-11-2018 16:45-0400 Height 160.02 cm [facility] 02-11-2018 16:45-0400 Pulse (Heart Rate) 72 /min [facility] 02-11-2018 16:45-0400 Pulse Oximetry 97 % [facility] 02-11-2018 16:45-0400 Respiratory Rate 20 /min [facility] 02-11-2018 16:45-0400 Weight 77.11 kg [facility] 02-11-2018 14:45-0400 Body height 160.02 cm [facility] Work Phone: [facility] Work Phone: 02-11-2018 14:45-0400 Body mass index (BMI) [Ratio] 30.1 kg/m2 Karla Clark CNP Work Phone: [facility] Work Phone: 02-11-2018 14:45-0400 Body surface area Derived from formula 1.8 m2 Karla Clark CNP Work Phone: [facility] Work Phone: 02-11-2018 14:45-0400 Body temperature 98.6 [degF] Karla Clark CNP Work Phone: [facility] Work Phone: 02-11-2018 14:45-0400 Body weight 77.11 kg Karla Clark CNP Work Phone: [facility] Work Phone: 02-11-2018 14:45-0400 Diastolic blood pressure 80 mm[Hg] Karla Clark CNP Work Phone: [facility] Work Phone: 02-11-2018 14:45-0400 Heart rate 72 /min Karla Clark CNP Work Phone: [facility] Work Phone: 02-11-2018 14:45-0400 Respiratory rate 20 /min Karla Clark CNP Work Phone: [facility] Work Phone: 02-11-2018 14:45-0400 Systolic blood pressure 124 mm[Hg] Karla Clark CNP Work Phone: [facility] Work Phone: 12-19-2017 17:08-0400 BMI (Body Mass Index) 30.29 kg/m2 Karla Clark [facility] 12-19-2017 17:08-0400 Body Temperature 98.7 [degF] Karla Clark [facility] 12-19-2017 17:08-0400 BP Diastolic 80 mm[Hg] [facility] 12-19-2017 17:08-0400 BP Systolic 122 mm[Hg] [facility] 12-19-2017 17:08-0400 BSA (Body Surface Area) 1.86 m2 [facility] 12-19-2017 17:08-0400 Height 160.02 cm [facility] 12-19-2017 17:08-0400 Pulse (Heart Rate) 97 /min [facility] 12-19-2017 17:08-0400 Pulse Oximetry 96 % [facility] 12-19-2017 17:08-0400 Respiratory Rate 18 /min [facility] 12-19-2017 17:08-0400 Weight 77.57 kg [facility] 12-19-2017 16:08-0400 BMI (Body Mass Index) 30.29 kg/m2 [facility] 12-19-2017 16:08-0400 Body Temperature 98.7 [degF] [facility] 12-19-2017 16:08-0400 BP Diastolic 80 mm[Hg] [facility] 12-19-2017 16:08-0400 BP Systolic 122 mm[Hg] [facility] 12-19-2017 16:08-0400 BSA (Body Surface Area) 1.86 m2 [facility] 12-19-2017 16:08-0400 Height 160.02 cm [facility] 12-19-2017 16:08-0400 Pulse (Heart Rate) 97 /min Karla Clark [facility] 12-19-2017 16:08-0400 Pulse Oximetry 96 % Karla Clark [facility] 12-19-2017 16:08-0400 Respiratory Rate 18 /min Karla Clark [facility] 12-19-2017 16:08-0400 Weight 77.57 kg Karla Clark [facility] 12-19-2017 14:08-0400 Body height 160.02 cm Karla Clark CNP Work Phone: [facility] Work Phone: 12-19-2017 14:08-0400 Body mass index (BMI) [Ratio] 30.3 kg/m2 Karla Clark CNP Work Phone: [facility] Work Phone: 12-19-2017 14:08-0400 Body surface area Derived from formula 1.81 m2 Karla Clark CNP Work Phone: [facility] Work Phone: 12-19-2017 14:08-0400 Body temperature 98.7 [degF] Karla Clark CNP Work Phone: [facility] Work Phone: 12-19-2017 14:08-0400 Body weight 77.57 kg Karla Clark CNP Work Phone: [facility] Work Phone: 12-19-2017 14:08-0400 Diastolic blood pressure 80 mm[Hg] Karla Clark CNP Work Phone: [facility] Work Phone: 12-19-2017 14:08-0400 Heart rate 97 /min Karla Clark CNP Work Phone: [facility] Work Phone: 12-19-2017 14:08-0400 Respiratory rate 18 /min Karla Clark CNP Work Phone: [facility] Work Phone: 12-19-2017 14:08-0400 Systolic blood pressure 122 mm[Hg] Karla Clark CNP Work Phone: [facility] Work Phone: 10-08-2017 14:21-0400 BMI (Body Mass Index) 29.47 kg/m2 [facility] 10-08-2017 14:21-0400 Body Temperature 97.5 [degF] [facility] 10-08-2017 14:21-0400 BP Diastolic 71 mm[Hg] [facility] 10-08-2017 14:21-0400 BP Systolic 109 mm[Hg] [facility] 10-08-2017 14:21-0400 BSA (Body Surface Area) 1.83 m2 [facility] 10-08-2017 14:21-0400 Height 160.02 cm [facility] 10-08-2017 14:21-0400 Pulse (Heart Rate) 53 /min [facility] 10-08-2017 14:21-0400 Pulse Oximetry 98 % [facility] 10-08-2017 14:21-0400 Respiratory Rate 18 /min [facility] 10-08-2017 14:21-0400 Weight 75.47 kg [facility] 10-08-2017 13:21-0400 BMI (Body Mass Index) 29.47 kg/m2 [facility] 10-08-2017 13:21-0400 Body Temperature 97.5 [degF] [facility] 10-08-2017 13:21-0400 BP Diastolic 71 mm[Hg] [facility] 10-08-2017 13:21-0400 BP Systolic 109 mm[Hg] [facility] 10-08-2017 13:21-0400 BSA (Body Surface Area) 1.83 m2 [facility] 10-08-2017 13:21-0400 Height 160.02 cm [facility] 10-08-2017 13:21-0400 Pulse (Heart Rate) 53 /min [facility] 10-08-2017 13:21-0400 Pulse Oximetry 98 % [facility] 10-08-2017 13:21-0400 Respiratory Rate 18 /min [facility] 10-08-2017 13:21-0400 Weight 75.47 kg [facility] 10-08-2017 11:21-0400 Body height 160.02 cm Karla Amber [facility] Work Phone: [facility] Work Phone: 10-08-2017 11:21-0400 Body mass index (BMI) [Ratio] 29.4 kg/m2 Karla Amber [facility] Work Phone: [facility] Work Phone: 10-08-2017 11:21-0400 Body surface area Derived from formula 1.79 m2 Karla Clark CNP Work Phone: [facility] Work Phone: 10-08-2017 11:21-0400 Body temperature 97.5 [degF] Karla Clark CNP Work Phone: [facility] Work Phone: 10-08-2017 11:21-0400 Body weight 75.3 kg Karla Clark CNP Work Phone: [facility] Work Phone: 10-08-2017 11:21-0400 Diastolic blood pressure 71 mm[Hg] Karla Clark CNP Work Phone: [facility] Work Phone: 10-08-2017 11:21-0400 Heart rate 53 /min Karla Clark CNP Work Phone: [facility] Work Phone: 10-08-2017 11:21-0400 Respiratory rate 18 /min Karla Clark CNP Work Phone: [facility] Work Phone: 10-08-2017 11:21-0400 Systolic blood pressure 109 mm[Hg] Karla Clark CNP Work Phone: [facility] Work Phone: 09-17-2017 13:46-0400 BMI (Body Mass Index) 29.43 kg/m2 Karla Amber [facility] 09-17-2017 13:46-0400 Body Temperature 98.9 [degF] [facility] 09-17-2017 13:46-0400 BP Diastolic 61 mm[Hg] Karla Amber [facility] 09-17-2017 13:46-0400 BP Systolic 91 mm[Hg] [facility] 09-17-2017 13:46-0400 BSA (Body Surface Area) 1.83 m2 [facility] 09-17-2017 13:46-0400 Height 160.02 cm [facility] 09-17-2017 13:46-0400 Pulse (Heart Rate) 54 /min [facility] 09-17-2017 13:46-0400 Pulse Oximetry 96 % [facility] 09-17-2017 13:46-0400 Respiratory Rate 18 /min [facility] 09-17-2017 13:46-0400 Weight 75.35 kg [facility] 09-17-2017 12:46-0400 BMI (Body Mass Index) 29.43 kg/m2 [facility] 09-17-2017 12:46-0400 Body Temperature 98.9 [degF] [facility] 09-17-2017 12:46-0400 BP Diastolic 61 mm[Hg] [facility] 09-17-2017 12:46-0400 BP Systolic 91 mm[Hg] [facility] 09-17-2017 12:46-0400 BSA (Body Surface Area) 1.83 m2 [facility] 09-17-2017 12:46-0400 Height 160.02 cm [facility] 09-17-2017 12:46-0400 Pulse (Heart Rate) 54 /min [facility] 09-17-2017 12:46-0400 Pulse Oximetry 96 % [facility] 09-17-2017 12:46-0400 Respiratory Rate 18 /min Karla Clark [facility] 09-17-2017 12:46-0400 Weight 75.35 kg Karla Clark [facility] 09-17-2017 10:46-0400 Body height 160.02 cm Karla Clark CNP Work Phone: [facility] Work Phone: 09-17-2017 10:46-0400 Body mass index (BMI) [Ratio] 29.4 kg/m2 Karla Clark CNP Work Phone: [facility] Work Phone: 09-17-2017 10:46-0400 Body surface area Derived from formula 1.79 m2 Karla Clark CNP Work Phone: [facility] Work Phone: 09-17-2017 10:46-0400 Body temperature 98.9 [degF] Karla Clark CNP Work Phone: [facility] Work Phone: 09-17-2017 10:46-0400 Body weight 75.3 kg Karla Clark CNP Work Phone: [facility] Work Phone: 09-17-2017 10:46-0400 Diastolic blood pressure 61 mm[Hg] Karla Clark CNP Work Phone: [facility] Work Phone: 09-17-2017 10:46-0400 Heart rate 54 /min Karla Clark CNP Work Phone: [facility] Work Phone: 09-17-2017 10:46-0400 Respiratory rate 18 /min Karla Clark CNP Work Phone: [facility] Work Phone: 09-17-2017 10:46-0400 Systolic blood pressure 91 mm[Hg] Karla Clark [facility] Work Phone: [facility] Work Phone: 07-30-2017 11:43-0500 BMI (Body Mass Index) 28.87 kg/m2 [facility] 07-30-2017 11:43-0500 Body Temperature 97.2 [degF] [facility] 07-30-2017 11:43-0500 BP Diastolic 84 mm[Hg] [facility] 07-30-2017 11:43-0500 BP Systolic 119 mm[Hg] [facility] 07-30-2017 11:43-0500 BSA (Body Surface Area) 1.81 m2 [facility] 07-30-2017 11:43-0500 Height 160.02 cm [facility] 07-30-2017 11:43-0500 Pulse (Heart Rate) 63 /min [facility] 07-30-2017 11:43-0500 Pulse Oximetry 98 % [facility] 07-30-2017 11:43-0500 Respiratory Rate 20 /min [facility] 07-30-2017 11:43-0500 Weight 73.94 kg [facility] 07-30-2017 10:43-0500 BMI (Body Mass Index) 28.87 kg/m2 [facility] 07-30-2017 10:43-0500 Body Temperature 97.2 [degF] [facility] 07-30-2017 10:43-0500 BP Diastolic 84 mm[Hg] [facility] 07-30-2017 10:43-0500 BP Systolic 119 mm[Hg] [facility] 07-30-2017 10:43-0500 BSA (Body Surface Area) 1.81 m2 [facility] 07-30-2017 10:43-0500 Height 160.02 cm [facility] 07-30-2017 10:43-0500 Pulse (Heart Rate) 63 /min [facility] 07-30-2017 10:43-0500 Pulse Oximetry 98 % [facility] 07-30-2017 10:43-0500 Respiratory Rate 20 /min [facility] 07-30-2017 10:43-0500 Weight 73.94 kg [facility] 05-14-2017 12:46-0500 BMI (Body Mass Index) 29.23 kg/m2 [facility] 05-14-2017 12:46-0500 Body Temperature 98.2 [degF] [facility] 05-14-2017 12:46-0500 BP Diastolic 80 mm[Hg] [facility] 05-14-2017 12:46-0500 BP Systolic 118 mm[Hg] [facility] 05-14-2017 12:46-0500 BSA (Body Surface Area) 1.82 m2 [facility] 05-14-2017 12:46-0500 Height 160.02 cm [facility] 05-14-2017 12:46-0500 Pulse (Heart Rate) 88 /min Karla Amber [facility] 05-14-2017 12:46-0500 Pulse Oximetry 98 % [facility] 05-14-2017 12:46-0500 Respiratory Rate 18 /min [facility] 05-14-2017 12:46-0500 Weight 74.84 kg [facility] 05-14-2017 11:46-0500 BMI (Body Mass Index) 29.23 kg/m2 [facility] 05-14-2017 11:46-0500 Body Temperature 98.2 [degF] [facility] 05-14-2017 11:46-0500 BP Diastolic 80 mm[Hg] [facility] 05-14-2017 11:46-0500 BP Systolic 118 mm[Hg] [facility] 05-14-2017 11:46-0500 BSA (Body Surface Area) 1.82 m2 [facility] 05-14-2017 11:46-0500 Height 160.02 cm [facility] 05-14-2017 11:46-0500 [facility] 88 [facility] 05-14-2017 11:46-0500 Pulse Oximetry 98 % [facility] 05-14-2017 11:46-0500 Respiratory Rate 18 /min [facility] 05-14-2017 11:46-0500 Weight 74.84 kg [facility] 04-18-2017 17:33-0500 BMI (Body Mass Index) 29.25 kg/m2 [facility] 04-18-2017 17:33-0500 Body Temperature 97.5 [degF] [facility] 04-18-2017 17:33-0500 BP Diastolic 60 mm[Hg] [facility] 04-18-2017 17:33-0500 BP Systolic 94 mm[Hg] [facility] 04-18-2017 17:33-0500 BSA (Body Surface Area) 1.82 m2 [facility] 04-18-2017 17:33-0500 Height 160.02 cm [facility] 04-18-2017 17:33-0500 Pulse (Heart Rate) 48 /min [facility] 04-18-2017 17:33-0500 Pulse Oximetry 97 % [facility] 04-18-2017 17:33-0500 Respiratory Rate 18 /min [facility] 04-18-2017 17:33-0500 Weight 74.9 kg [facility] 04-18-2017 16:33-0500 BMI (Body Mass Index) 29.25 kg/m2 [facility] 04-18-2017 16:33-0500 Body Temperature 97.5 [degF] [facility] 04-18-2017 16:33-0500 BP Diastolic 60 mm[Hg] [facility] 04-18-2017 16:33-0500 BP Systolic 94 mm[Hg] [facility] 04-18-2017 16:33-0500 BSA (Body Surface Area) 1.82 m2 [facility] 04-18-2017 16:33-0500 Height 160.02 cm [facility] 04-18-2017 16:33-0500 Pulse (Heart Rate) 48 /min [facility] 04-18-2017 16:33-0500 Pulse Oximetry 97 % [facility] 04-18-2017 16:33-0500 Respiratory Rate 18 /min [facility] 04-18-2017 16:33-0500 Weight 74.9 kg [facility] 03-07-2017 17:07-0400 BMI (Body Mass Index) 29.25 kg/m2 [facility] 03-07-2017 17:07-0400 Body Temperature 98.7 [degF] [facility] 03-07-2017 17:07-0400 BP Diastolic 68 mm[Hg] [facility] 03-07-2017 17:07-0400 BP Systolic 100 mm[Hg] [facility] 03-07-2017 17:07-0400 BSA (Body Surface Area) 1.82 m2 [facility] 03-07-2017 17:07-0400 Height 160.02 cm [facility] 03-07-2017 17:07-0400 Pulse (Heart Rate) 65 /min [facility] 03-07-2017 17:07-0400 Pulse Oximetry 100 % [facility] 03-07-2017 17:07-0400 Respiratory Rate 18 /min [facility] 03-07-2017 17:07-0400 Weight 74.9 kg [facility] 03-07-2017 16:07-0400 BMI (Body Mass Index) 29.25 kg/m2 [facility] 03-07-2017 16:07-0400 Body Temperature 98.7 [degF] [facility] 03-07-2017 16:07-0400 BP Diastolic 68 mm[Hg] [facility] 03-07-2017 16:07-0400 BP Systolic 100 mm[Hg] [facility] 03-07-2017 16:07-0400 BSA (Body Surface Area) 1.82 m2 [facility] 03-07-2017 16:07-0400 Height 160.02 cm [facility] 03-07-2017 16:07-0400 Pulse (Heart Rate) 65 /min [facility] 03-07-2017 16:07-0400 Pulse Oximetry 100 % [facility] 03-07-2017 16:07-0400 Respiratory Rate 18 /min [facility] 03-07-2017 16:07-0400 Weight 74.9 kg [facility] 03-05-2017 16:29-0400 BMI (Body Mass Index) 29.1 kg/m2 [facility] 03-05-2017 16:29-0400 Body Temperature 97.6 [degF] [facility] 03-05-2017 16:29-0400 BP Diastolic 60 mm[Hg] [facility] 03-05-2017 16:29-0400 BP Systolic 102 mm[Hg] [facility] 03-05-2017 16:29-0400 BSA (Body Surface Area) 1.82 m2 [facility] 03-05-2017 16:29-0400 Height 160.02 cm [facility] 03-05-2017 16:29-0400 Pulse (Heart Rate) 60 /min [facility] 03-05-2017 16:29-0400 Pulse Oximetry 99 % [facility] 03-05-2017 16:29-0400 Respiratory Rate 18 /min [facility] 03-05-2017 16:29-0400 Weight 74.5 kg [facility] 03-05-2017 15:29-0400 BMI (Body Mass Index) 29.1 kg/m2 [facility] 03-05-2017 15:29-0400 Body Temperature 97.6 [degF] [facility] 03-05-2017 15:29-0400 BP Diastolic 60 mm[Hg] [facility] 03-05-2017 15:29-0400 BP Systolic 102 mm[Hg] [facility] 03-05-2017 15:29-0400 BSA (Body Surface Area) 1.82 m2 [facility] 03-05-2017 15:29-0400 Height 160.02 cm [facility] 03-05-2017 15:29-0400 Pulse (Heart Rate) 60 /min [facility] 03-05-2017 15:29-0400 Pulse Oximetry 99 % [facility] 03-05-2017 15:29-0400 Respiratory Rate 18 /min [facility] 03-05-2017 15:29-0400 Weight 74.5 kg [facility] 01-01-2017 11:52-0400 BMI (Body Mass Index) 28.59 kg/m2 [facility] 01-01-2017 11:52-0400 Body Temperature 97.5 [degF] [facility] 01-01-2017 11:52-0400 BP Diastolic 69 mm[Hg] [facility] 01-01-2017 11:52-0400 BP Systolic 114 mm[Hg] [facility] 01-01-2017 11:52-0400 BSA (Body Surface Area) 1.8 m2 [facility] 01-01-2017 11:52-0400 Height 160.02 cm [facility] 01-01-2017 11:52-0400 Pulse (Heart Rate) 61 /min [facility] 01-01-2017 11:52-0400 Pulse Oximetry 99 % [facility] 01-01-2017 11:52-0400 Respiratory Rate 20 /min [facility] 01-01-2017 11:52-0400 Weight 73.2 kg [facility] 01-01-2017 10:52-0400 BMI (Body Mass Index) 28.59 kg/m2 [facility] 01-01-2017 10:52-0400 Body Temperature 97.5 [degF] [facility] 01-01-2017 10:52-0400 BP Diastolic 69 mm[Hg] [facility] 01-01-2017 10:52-0400 BP Systolic 114 mm[Hg] [facility] 01-01-2017 10:52-0400 BSA (Body Surface Area) 1.8 m2 [facility] 01-01-2017 10:52-0400 Height 160.02 cm [facility] 01-01-2017 10:52-0400 Pulse (Heart Rate) 61 /min [facility] 01-01-2017 10:52-0400 Pulse Oximetry 99 % [facility] 01-01-2017 10:52-0400 Respiratory Rate 20 /min [facility] 01-01-2017 10:52-0400 Weight 73.2 kg [facility] 12-06-2016 12:51-0400 BMI (Body Mass Index) 28.79 kg/m2 [facility] 12-06-2016 12:51-0400 Body Temperature 97.5 [degF] [facility] 12-06-2016 12:51-0400 BP Diastolic 80 mm[Hg] [facility] 12-06-2016 12:51-0400 BP Systolic 104 mm[Hg] [facility] 12-06-2016 12:51-0400 BSA (Body Surface Area) 1.81 m2 [facility] 12-06-2016 12:51-0400 Height 160.02 cm [facility] 12-06-2016 12:51-0400 Pulse (Heart Rate) 81 /min [facility] 12-06-2016 12:51-0400 Pulse Oximetry 98 % [facility] 12-06-2016 12:51-0400 Respiratory Rate 18 /min [facility] 12-06-2016 12:51-0400 Weight 73.71 kg [facility] 12-06-2016 11:51-0400 BMI (Body Mass Index) 28.79 kg/m2 [facility] 12-06-2016 11:51-0400 Body Temperature 97.5 [degF] [facility] 12-06-2016 11:51-0400 BP Diastolic 80 mm[Hg] [facility] 12-06-2016 11:51-0400 BP Systolic 104 mm[Hg] [facility] 12-06-2016 11:51-0400 BSA (Body Surface Area) 1.81 m2 [facility] 12-06-2016 11:51-0400 Height 160.02 cm [facility] 12-06-2016 11:51-0400 Pulse (Heart Rate) 81 /min [facility] 12-06-2016 11:51-0400 Pulse Oximetry 98 % [facility] 12-06-2016 11:51-0400 Respiratory Rate 18 /min [facility] 12-06-2016 11:51-0400 Weight 73.71 kg [facility] 11-06-2016 14:21-0400 BMI (Body Mass Index) 29.58 kg/m2 [facility] 11-06-2016 14:21-0400 Body Temperature 97.5 [degF] [facility] 11-06-2016 14:21-0400 BP Diastolic 76 mm[Hg] [facility] 11-06-2016 14:21-0400 BP Systolic 117 mm[Hg] [facility] 11-06-2016 14:21-0400 BSA (Body Surface Area) 1.83 m2 [facility] 11-06-2016 14:21-0400 Height 160.02 cm [facility] 11-06-2016 14:21-0400 Pulse (Heart Rate) 64 /min [facility] 11-06-2016 14:21-0400 Pulse Oximetry 97 % [facility] 11-06-2016 14:21-0400 Respiratory Rate 18 /min [facility] 11-06-2016 14:21-0400 Weight 75.75 kg [facility] 11-06-2016 13:21-0400 BMI (Body Mass Index) 29.58 kg/m2 [facility] 11-06-2016 13:21-0400 Body Temperature 97.5 [degF] [facility] 11-06-2016 13:21-0400 BP Diastolic 76 mm[Hg] [facility] 11-06-2016 13:21-0400 BP Systolic 117 mm[Hg] [facility] 11-06-2016 13:21-0400 BSA (Body Surface Area) 1.83 m2 [facility] 11-06-2016 13:21-0400 Height 160.02 cm [facility] 11-06-2016 13:21-0400 Pulse (Heart Rate) 64 /min [facility] 11-06-2016 13:21-0400 Pulse Oximetry 97 % [facility] 11-06-2016 13:21-0400 Respiratory Rate 18 /min [facility] 11-06-2016 13:21-0400 Weight 75.75 kg [facility] 09-27-2016 17:31-0400 BMI (Body Mass Index) 28.67 kg/m2 [facility] 09-27-2016 17:31-0400 Body Temperature 98.2 [degF] [facility] 09-27-2016 17:31-0400 BP Diastolic 64 mm[Hg] [facility] 09-27-2016 17:31-0400 BP Systolic 105 mm[Hg] [facility] 09-27-2016 17:31-0400 BSA (Body Surface Area) 1.85 m2 [facility] 09-27-2016 17:31-0400 Height 162.56 cm [facility] 09-27-2016 17:31-0400 Pulse (Heart Rate) 102 /min [facility] 09-27-2016 17:31-0400 Pulse Oximetry 95 % [facility] 09-27-2016 17:31-0400 Respiratory Rate 18 /min [facility] 09-27-2016 17:31-0400 Weight 75.75 kg [facility] 09-27-2016 16:31-0400 BMI (Body Mass Index) 28.67 kg/m2 [facility] 09-27-2016 16:31-0400 Body Temperature 98.2 [degF] [facility] 09-27-2016 16:31-0400 BP Diastolic 64 mm[Hg] [facility] 09-27-2016 16:31-0400 BP Systolic 105 mm[Hg] [facility] 09-27-2016 16:31-0400 BSA (Body Surface Area) 1.85 m2 [facility] 09-27-2016 16:31-0400 Height 162.56 cm [facility] 09-27-2016 16:31-0400 Pulse (Heart Rate) 102 /min [facility] 09-27-2016 16:31-0400 Pulse Oximetry 95 % [facility] 09-27-2016 16:31-0400 Respiratory Rate 18 /min [facility] 09-27-2016 16:31-0400 Weight 75.75 kg [facility] 08-21-2016 13:22-0400 BMI (Body Mass Index) 28.41 kg/m2 [facility] 08-21-2016 13:22-0400 Body Temperature 97.7 [degF] [facility] 08-21-2016 13:22-0400 BP Diastolic 80 mm[Hg] [facility] 08-21-2016 13:22-0400 BP Systolic 110 mm[Hg] [facility] 08-21-2016 13:22-0400 BSA (Body Surface Area) 1.84 m2 [facility] 08-21-2016 13:22-0400 Height 162.56 cm [facility] 08-21-2016 13:22-0400 Pulse (Heart Rate) 58 /min [facility] 08-21-2016 13:22-0400 Pulse Oximetry 97 % [facility] 08-21-2016 13:22-0400 Respiratory Rate 18 /min [facility] 08-21-2016 13:22-0400 Weight 75.07 kg [facility] 08-21-2016 12:22-0400 BMI (Body Mass Index) 28.41 kg/m2 [facility]-2016 12:22-0400 Body Temperature 97.7 [degF] [facility] 08-21-2016 12:22-0400 BP Diastolic 80 mm[Hg] [facility] 08-21-2016 12:22-0400 BP Systolic 110 mm[Hg] [facility] 08-21-2016 12:22-0400 BSA (Body Surface Area) 1.84 m2 [facility] 08-21-2016 12:22-0400 Height 162.56 cm [facility] 08-21-2016 12:22-0400 Pulse (Heart Rate) 58 /min [facility] 08-21-2016 12:22-0400 Pulse Oximetry 97 % [facility] 08-21-2016 12:22-0400 Respiratory Rate 18 /min [facility] 08-21-2016 12:22-0400 Weight 75.07 kg [facility] 06-26-2016 16:13-0500 BMI (Body Mass Index) 28.9 kg/m2 [facility] 06-26-2016 16:13-0500 Body Temperature 97 [degF] [facility] 06-26-2016 16:13-0500 BP Diastolic 80 mm[Hg] [facility] 06-26-2016 16:13-0500 BP Systolic 106 mm[Hg] [facility] 06-26-2016 16:13-0500 BSA (Body Surface Area) 1.86 m2 [facility] 06-26-2016 16:13-0500 Height 162.56 cm [facility] 06-26-2016 16:13-0500 Pulse (Heart Rate) 61 /min [facility] 06-26-2016 16:13-0500 Pulse Oximetry 97 % [facility] 06-26-2016 16:13-0500 Respiratory Rate 18 /min [facility] 06-26-2016 16:13-0500 Weight 76.37 kg [facility] 06-26-2016 15:13-0500 BMI (Body Mass Index) 28.9 kg/m2 [facility] 06-26-2016 15:13-0500 Body Temperature 97 [degF] [facility] 06-26-2016 15:13-0500 BP Diastolic 80 mm[Hg] [facility] 06-26-2016 15:13-0500 BP Systolic 106 mm[Hg] [facility] 06-26-2016 15:13-0500 BSA (Body Surface Area) 1.86 m2 [facility] 06-26-2016 15:13-0500 Height 162.56 cm [facility] 06-26-2016 15:13-0500 Pulse (Heart Rate) 61 /min [facility] 06-26-2016 15:13-0500 Pulse Oximetry 97 % [facility] 06-26-2016 15:13-0500 Respiratory Rate 18 /min [facility] 06-26-2016 15:13-0500 Weight 76.37 kg [facility] 06-12-2016 13:32-0500 BMI (Body Mass Index) 27.85 kg/m2 [facility] 06-12-2016 13:32-0500 Body Temperature 97.5 [degF] [facility] 06-12-2016 13:32-0500 BP Diastolic 68 mm[Hg] [facility] 06-12-2016 13:32-0500 BP Systolic 100 mm[Hg] [facility] 06-12-2016 13:32-0500 BSA (Body Surface Area) 1.82 m2 [facility] 06-12-2016 13:32-0500 Height 162.56 cm [facility] 06-12-2016 13:32-0500 Pulse (Heart Rate) 68 /min [facility] 06-12-2016 13:32-0500 Pulse Oximetry 98 % [facility] 06-12-2016 13:32-0500 Respiratory Rate 18 /min [facility] 06-12-2016 13:32-0500 Weight 73.6 kg [facility] 06-12-2016 12:32-0500 BMI (Body Mass Index) 27.85 kg/m2 [facility] 06-12-2016 12:32-0500 Body Temperature 97.5 [degF] [facility] 06-12-2016 12:32-0500 BP Diastolic 68 mm[Hg] [facility] 06-12-2016 12:32-0500 BP Systolic 100 mm[Hg] [facility] 06-12-2016 12:32-0500 BSA (Body Surface Area) 1.82 m2 [facility] 06-12-2016 12:32-0500 Height 162.56 cm [facility] 06-12-2016 12:32-0500 Pulse (Heart Rate) 68 /min [facility] 06-12-2016 12:32-0500 Pulse Oximetry 98 % [facility] 06-12-2016 12:32-0500 Respiratory Rate 18 /min [facility] 06-12-2016 12:32-0500 Weight 73.6 kg [facility] 05-22-2016 15:51-0500 BMI (Body Mass Index) 27.81 kg/m2 [facility] 05-22-2016 15:51-0500 Body Temperature 98 [degF] [facility] 05-22-2016 15:51-0500 BP Diastolic 67 mm[Hg] [facility] 05-22-2016 15:51-0500 BP Systolic 104 mm[Hg] [facility] 05-22-2016 15:51-0500 BSA (Body Surface Area) 1.82 m2 [facility] 05-22-2016 15:51-0500 Height 162.56 cm [facility] 05-22-2016 15:51-0500 Pulse (Heart Rate) 89 /min [facility] 05-22-2016 15:51-0500 Pulse Oximetry 99 % [facility] 05-22-2016 15:51-0500 Respiratory Rate 18 /min [facility] 05-22-2016 15:51-0500 Weight 73.48 kg [facility] 05-22-2016 14:51-0500 BMI (Body Mass Index) 27.81 kg/m2 [facility] 05-22-2016 14:51-0500 Body Temperature 98 [degF] [facility] 05-22-2016 14:51-0500 BP Diastolic 67 mm[Hg] [facility] 05-22-2016 14:51-0500 BP Systolic 104 mm[Hg] [facility] 05-22-2016 14:51-0500 BSA (Body Surface Area) 1.82 m2 [facility] 05-22-2016 14:51-0500 Height 162.56 cm [facility] 05-22-2016 14:51-0500 Pulse (Heart Rate) 89 /min [facility] 05-22-2016 14:51-0500 Pulse Oximetry 99 % [facility] 05-22-2016 14:51-0500 Respiratory Rate 18 /min [facility] 05-22-2016 14:51-0500 Weight 73.48 kg [facility] 04-10-2016 12:54-0500 BMI (Body Mass Index) 27.7 kg/m2 [facility] 04-10-2016 12:54-0500 Body Temperature 97.8 [degF] [facility] 04-10-2016 12:54-0500 BP Diastolic 74 mm[Hg] [facility] 04-10-2016 12:54-0500 BP Systolic 110 mm[Hg] [facility] 04-10-2016 12:54-0500 BSA (Body Surface Area) 1.82 m2 [facility] 04-10-2016 12:54-0500 Height 162.56 cm [facility] 04-10-2016 12:54-0500 Pulse (Heart Rate) 58 /min [facility] 04-10-2016 12:54-0500 Pulse Oximetry 98 % [facility] 04-10-2016 12:54-0500 Respiratory Rate 20 /min [facility] 04-10-2016 12:54-0500 Weight 73.2 kg [facility] 04-10-2016 11:54-0500 BMI (Body Mass Index) 27.7 kg/m2 [facility] 04-10-2016 11:54-0500 Body Temperature 97.8 [degF] [facility] 04-10-2016 11:54-0500 BP Diastolic 74 mm[Hg] [facility] 04-10-2016 11:54-0500 BP Systolic 110 mm[Hg] [facility] 04-10-2016 11:54-0500 BSA (Body Surface Area) 1.82 m2 [facility] 04-10-2016 11:54-0500 Height 162.56 cm [facility] 04-10-2016 11:54-0500 Pulse (Heart Rate) 58 /min [facility] 04-10-2016 11:54-0500 Pulse Oximetry 98 % [facility] 04-10-2016 11:54-0500 Respiratory Rate 20 /min [facility] 04-10-2016 11:54-0500 Weight 73.2 kg [facility] 03-20-2016 13:39-0400 BMI (Body Mass Index) 27.83 kg/m2 [facility] 03-20-2016 13:39-0400 Body Temperature 98.6 [degF] [facility] 03-20-2016 13:39-0400 BP Diastolic 80 mm[Hg] [facility] 03-20-2016 13:39-0400 BP Systolic 122 mm[Hg] [facility] 03-20-2016 13:39-0400 BSA (Body Surface Area) 1.82 m2 [facility] 03-20-2016 13:39-0400 Height 162.56 cm [facility] 03-20-2016 13:39-0400 Pulse (Heart Rate) 69 /min [facility] 03-20-2016 13:39-0400 Pulse Oximetry 98 % [facility] 03-20-2016 13:39-0400 Respiratory Rate 18 /min [facility] 03-20-2016 13:39-0400 Weight 73.54 kg [facility] 03-20-2016 12:39-0400 BMI (Body Mass Index) 27.83 kg/m2 [facility] 03-20-2016 12:39-0400 Body Temperature 98.6 [degF] [facility] 03-20-2016 12:39-0400 BP Diastolic 80 mm[Hg] [facility] 03-20-2016 12:39-0400 BP Systolic 122 mm[Hg] [facility] 03-20-2016 12:39-0400 BSA (Body Surface Area) 1.82 m2 [facility] 03-20-2016 12:39-0400 Height 162.56 cm [facility] 03-20-2016 12:39-0400 Pulse (Heart Rate) 69 /min [facility] 03-20-2016 12:39-0400 Pulse Oximetry 98 % [facility] 03-20-2016 12:39-0400 Respiratory Rate 18 /min [facility] 03-20-2016 12:39-0400 Weight 73.54 kg [facility] 03-09-2016 14:12-0400 BMI (Body Mass Index) 27.64 kg/m2 [facility] 03-09-2016 14:12-0400 Body Temperature 99.2 [degF] [facility] 03-09-2016 14:12-0400 BP Diastolic 66 mm[Hg] [facility] 03-09-2016 14:12-0400 BP Systolic 102 mm[Hg] [facility] 03-09-2016 14:12-0400 BSA (Body Surface Area) 1.82 m2 [facility] 03-09-2016 14:12-0400 Height 162.56 cm [facility] 03-09-2016 14:12-0400 Pulse (Heart Rate) 70 /min [facility] 03-09-2016 14:12-0400 Pulse Oximetry 97 % [facility] 03-09-2016 14:12-0400 Respiratory Rate 18 /min [facility] 03-09-2016 14:12-0400 Weight 73.03 kg [facility] 03-09-2016 13:12-0400 BMI (Body Mass Index) 27.64 kg/m2 [facility] 03-09-2016 13:12-0400 Body Temperature 99.2 [degF] [facility] 03-09-2016 13:12-0400 BP Diastolic 66 mm[Hg] [facility] 03-09-2016 13:12-0400 BP Systolic 102 mm[Hg] [facility] 03-09-2016 13:12-0400 BSA (Body Surface Area) 1.82 m2 [facility] 03-09-2016 13:12-0400 Height 162.56 cm [facility] 03-09-2016 13:12-0400 Pulse (Heart Rate) 70 /min [facility] 03-09-2016 13:12-0400 Pulse Oximetry 97 % [facility] 03-09-2016 13:12-0400 Respiratory Rate 18 /min [facility] 03-09-2016 13:12-0400 Weight 73.03 kg [facility] 03-06-2016 18:13-0400 BMI (Body Mass Index) 27.72 kg/m2 [facility] 03-06-2016 18:13-0400 Body Temperature 98.6 [degF] [facility] 03-06-2016 18:13-0400 BP Diastolic 70 mm[Hg] [facility] 03-06-2016 18:13-0400 BP Systolic 107 mm[Hg] [facility] 03-06-2016 18:13-0400 BSA (Body Surface Area) 1.82 m2 [facility] 03-06-2016 18:13-0400 Height 162.56 cm [facility] 03-06-2016 18:13-0400 Pulse (Heart Rate) 65 /min [facility] 03-06-2016 18:13-0400 Pulse Oximetry 97 % [facility] 03-06-2016 18:13-0400 Respiratory Rate 18 /min [facility] 03-06-2016 18:13-0400 Weight 73.26 kg [facility] 03-06-2016 17:13-0400 BMI (Body Mass Index) 27.72 kg/m2 [facility] 03-06-2016 17:13-0400 Body Temperature 98.6 [degF] [facility] 03-06-2016 17:13-0400 BP Diastolic 70 mm[Hg] [facility] 03-06-2016 17:13-0400 BP Systolic 107 mm[Hg] [facility] 03-06-2016 17:13-0400 BSA (Body Surface Area) 1.82 m2 [facility] 03-06-2016 17:13-0400 Height 162.56 cm [facility] 03-06-2016 17:13-0400 [facility] 65 [facility] 03-06-2016 17:13-0400 Pulse Oximetry 97 % [facility] 03-06-2016 17:13-0400 Respiratory Rate 18 /min [facility] 03-06-2016 17:13-0400 Weight 73.26 kg [facility] 02-21-2016 13:12-0400 BMI (Body Mass Index) 28.15 kg/m2 [facility] 02-21-2016 13:12-0400 Body Temperature 97.2 [degF] [facility] 02-21-2016 13:12-0400 BP Diastolic 74 mm[Hg] [facility] 02-21-2016 13:12-0400 BP Systolic 118 mm[Hg] [facility] 02-21-2016 13:12-0400 BSA (Body Surface Area) 1.83 m2 [facility] 02-21-2016 13:12-0400 Height 162.56 cm [facility] 02-21-2016 13:12-0400 Pulse (Heart Rate) 63 /min [facility] 02-21-2016 13:12-0400 Pulse Oximetry 99 % [facility] 02-21-2016 13:12-0400 Respiratory Rate 18 /min [facility] 02-21-2016 13:12-0400 Weight 74.39 kg [facility] 02-21-2016 12:12-0400 BMI (Body Mass Index) 28.15 kg/m2 [facility] 02-21-2016 12:12-0400 Body Temperature 97.2 [degF] [facility] 02-21-2016 12:12-0400 BP Diastolic 74 mm[Hg] [facility] 02-21-2016 12:12-0400 BP Systolic 118 mm[Hg] [facility] 02-21-2016 12:12-0400 BSA (Body Surface Area) 1.83 m2 [facility] 02-21-2016 12:12-0400 Height 162.56 cm [facility] 02-21-2016 12:12-0400 Pulse (Heart Rate) 63 /min [facility] 02-21-2016 12:12-0400 Pulse Oximetry 99 % [facility] 02-21-2016 12:12-0400 Respiratory Rate 18 /min [facility] 02-21-2016 12:12-0400 Weight 74.39 kg [facility] 01-11-2016 13:02-0400 BMI (Body Mass Index) 28.34 kg/m2 [facility] 01-11-2016 13:02-0400 Body Temperature 98.2 [degF] [facility] 01-11-2016 13:02-0400 BP Diastolic 74 mm[Hg] [facility] 01-11-2016 13:02-0400 BP Systolic 126 mm[Hg] [facility] 01-11-2016 13:02-0400 BSA (Body Surface Area) 1.84 m2 [facility] 01-11-2016 13:02-0400 Height 162.56 cm [facility] 01-11-2016 13:02-0400 Pulse (Heart Rate) 69 /min [facility] 01-11-2016 13:02-0400 Pulse Oximetry 97 % [facility] 01-11-2016 13:02-0400 Respiratory Rate 18 /min [facility] 01-11-2016 13:02-0400 Weight 74.9 kg [facility] 01-11-2016 12:02-0400 BMI (Body Mass Index) 28.34 kg/m2 [facility] 01-11-2016 12:02-0400 Body Temperature 98.2 [degF] [facility] 01-11-2016 12:02-0400 BP Diastolic 74 mm[Hg] [facility] 01-11-2016 12:02-0400 BP Systolic 126 mm[Hg] [facility] 01-11-2016 12:02-0400 BSA (Body Surface Area) 1.84 m2 [facility] 01-11-2016 12:02-0400 Height 162.56 cm [facility] 01-11-2016 12:02-0400 P[facility] (Heart Rate) 69 /[facility] 01-11-2016 12:02-0400 Pulse Oximetry 97 % [facility] 01-11-2016 12:02-0400 Respiratory Rate 18 /min [facility] 01-11-2016 12:02-0400 Weight 74.9 kg [facility] 12-08-2015 11:37-0400 BMI (Body Mass Index) 28.52 kg/m2 [facility] 12-08-2015 11:37-0400 BMI (Body Mass Index) 28.51 kg/m2 [facility] 12-08-2015 11:37-0400 Body Temperature 98.1 [degF] [facility] 12-08-2015 11:37-0400 BP Diastolic 60 mm[Hg] [facility] 12-08-2015 11:37-0400 BP Systolic 110 mm[Hg] [facility] 12-08-2015 11:37-0400 BSA (Body Surface Area) 1.84 m2 [facility] 12-08-2015 11:37-0400 Height 162.56 cm [facility] 12-08-2015 11:37-0400 Pulse (Heart Rate) 100 /min [facility] 12-08-2015 11:37-0400 Pulse Oximetry 98 % [facility] 12-08-2015 11:37-0400 Respiratory Rate 18 /min [facility] 12-08-2015 11:37-0400 Weight 75.35 kg [facility] 12-08-2015 10:37-0400 BMI (Body Mass Index) 28.52 kg/m2 [facility] 12-08-2015 10:37-0400 BMI (Body Mass Index) 28.51 kg/m2 [facility] 12-08-2015 10:37-0400 Body Temperature 98.1 [degF] [facility] 12-08-2015 10:37-0400 BP Diastolic 60 mm[Hg] [facility] 12-08-2015 10:37-0400 BP Systolic 110 mm[Hg] [facility] 12-08-2015 10:37-0400 BSA (Body Surface Area) 1.84 m2 [facility] 12-08-2015 10:37-0400 Height 162.56 cm [facility] 12-08-2015 10:37-0400 Pulse (Heart Rate) 100 /min [facility] 12-08-2015 10:37-0400 Pulse Oximetry 98 % [facility] 12-08-2015 10:37-0400 Respiratory Rate 18 /min [facility] 12-08-2015 10:37-0400 Weight 75.35 kg [facility] 10-25-2015 11:43-0400 BMI (Body Mass Index) 28.24 kg/m2 [facility] 10-25-2015 11:43-0400 Body Temperature 98.2 [degF] [facility] 10-25-2015 11:43-0400 BP Diastolic 70 mm[Hg] [facility] 10-25-2015 11:43-0400 BP Systolic 110 mm[Hg] [facility] 10-25-2015 11:43-0400 BSA (Body Surface Area) 1.84 m2 [facility] 10-25-2015 11:43-0400 Height 162.56 cm [facility] 10-25-2015 11:43-0400 Pulse (Heart Rate) 55 /min [facility] 10-25-2015 11:43-0400 Pulse Oximetry 99 % [facility] 10-25-2015 11:43-0400 Respiratory Rate 18 /min [facility] 10-25-2015 11:43-0400 Weight 74.62 kg [facility] 10-25-2015 10:43-0400 BMI (Body Mass Index) 28.24 kg/m2 [facility] 10-25-2015 10:43-0400 Body Temperature 98.2 [degF] [facility] 10-25-2015 10:43-0400 BP Diastolic 70 mm[Hg] [facility] 10-25-2015 10:43-0400 BP Systolic 110 mm[Hg] [facility] 10-25-2015 10:43-0400 BSA (Body Surface Area) 1.84 m2 [facility] 10-25-2015 10:43-0400 Height 162.56 cm [facility] 10-25-2015 10:43-0400 Pulse (Heart Rate) 55 /min [facility] 10-25-2015 10:43-0400 Pulse Oximetry 99 % [facility] 10-25-2015 10:43-0400 Respiratory Rate 18 /min [facility] 10-25-2015 10:43-0400 Weight 74.62 kg [facility] 09-22-2015 11:19-0400 BMI (Body Mass Index) 30.22 kg/m2 [facility] 09-22-2015 11:19-0400 Body Temperature 98.6 [degF] [facility] 09-22-2015 11:19-0400 BP Diastolic 78 mm[Hg] [facility] 09-22-2015 11:19-0400 BP Systolic 132 mm[Hg] [facility] 09-22-2015 11:19-0400 BSA (Body Surface Area) 1.81 m2 [facility] 09-22-2015 11:19-0400 Height 157.48 cm [facility] 09-22-2015 11:19-0400 Pulse (Heart Rate) 86 /min [facility] 09-22-2015 11:19-0400 Pulse Oximetry 98 % [facility] 09-22-2015 11:19-0400 Respiratory Rate 18 /min [facility] 09-22-2015 11:19-0400 Weight 74.96 kg [facility] 09-22-2015 10:19-0400 BMI (Body Mass Index) 30.22 kg/m2 [facility] 09-22-2015 10:19-0400 Body Temperature 98.6 [degF] [facility] 09-22-2015 10:19-0400 BP Diastolic 78 mm[Hg] [facility] 09-22-2015 10:19-0400 BP Systolic 132 mm[Hg] [facility] 09-22-2015 10:19-0400 BSA (Body Surface Area) 1.81 m2 [facility] 09-22-2015 10:19-0400 Height 157.48 cm [facility] 09-22-2015 10:19-0400 Pulse (Heart Rate) 86 /min [facility] 09-22-2015 10:19-0400 Pulse Oximetry 98 % [facility] 09-22-2015 10:19-0400 Respiratory Rate 18 /min [facility] 09-22-2015 10:19-0400 Weight 74.96 kg [facility] 09-08-2015 11:54-0400 BMI (Body Mass Index) 30.04 kg/m2 [facility] 09-08-2015 11:54-0400 BP Diastolic 70 mm[Hg] [facility] 09-08-2015 11:54-0400 BP Systolic 118 mm[Hg] [facility] 09-08-2015 11:54-0400 BSA (Body Surface Area) 1.81 m2 [facility] 09-08-2015 11:54-0400 Height 157.48 cm [facility] 09-08-2015 11:54-0400 Pulse (Heart Rate) 75 /min [facility] 09-08-2015 11:54-0400 Pulse Oximetry 97 % [facility] 09-08-2015 11:54-0400 Respiratory Rate 18 /min [facility] 09-08-2015 11:54-0400 Weight 74.5 kg [facility] 09-08-2015 10:54-0400 BMI (Body Mass Index) 30.04 kg/m2 [facility] 09-08-2015 10:54-0400 BP Diastolic 70 mm[Hg] [facility] 09-08-2015 10:54-0400 BP Systolic 118 mm[Hg] [facility] 09-08-2015 10:54-0400 BSA (Body Surface Area) 1.81 m2 [facility] 09-08-2015 10:54-0400 Height 157.48 cm [facility] 09-08-2015 10:54-0400 Pulse (Heart Rate) 75 /min [facility] 09-08-2015 10:54-0400 Pulse Oximetry 97 % [facility] 09-08-2015 10:54-0400 Respiratory Rate 18 /min [facility] 09-08-2015 10:54-0400 Weight 74.5 kg [facility] Encounters Encounter Date Encounter Type Care Provider Facility Start: 02-08-2025 End: 02-08-2025 ambulatory NON STAFF [facility] Work Phone: Start: 02-08-2025 End: 02-08-2025 Patient encounter procedure Emory Adame DO [facility] Work Phone: Start: 12-17-2024 End: 12-19-2024 ambulatory HÉCTOR Greene [facility] Start: 12-17-2024 End: 12-19-2024 Subsequent hospital visit by physician Héctor Turner MD Work Phone: [facility] Non-Invasive Cardiology Comment on above: Abnormal EKG; RBBB; History of NH (myocardial infarction); Tobacco abuse counseling Start: 05-31-2024 ambulatory KARLA CLARK [facility] Start: 04-23-2024 End: 04-24-2024 Emergency department patient visit Sami Jasso MD Work Phone: [facility] Comment on above: Transportation unava ilable (Primary Dx) Start: 04-23-2024 End: 04-23-2024 Emergency department patient visit Alberta Medeiros MD Work Phone: [facility] Comment on above: Stroke-like symptom (Primary [...] she had an PT screening there at [facility]; she replied she is going to [...] 45 minutes Lucy Gilbert DO Work Phone: [facility] [employer] [facility] Comment on above: Gait instability (Pr imary Dx); Tardive dyskinesia; Psychiatric disturbance; [place] use Start: 02-18-2024 End: 02-18-2024 Bamboo flowsheet Lucy Gilbert DO Work Phone: [employer] [facility] Start: 02-18-2024 End: 02-18-2024 Bamboo flowsheet Lucy Gilbert DO Work Phone: [employer] [facility] Start: 02-11-2024 ambulatory Karla Clark Facility :[facility] Start: 01-27-2024 End: 01-27-2024 General 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: [facility] Work Phone: Start: 01-27-2024 End: 01-27-2024 General 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: [facility] Work Phone: Start: 01-27-2024 End: 01-27-2024 [facility] visit, estab pt Vida Culp CLINICAL PHARMACY TECHNICIAN Work Phone: [facility] Work Phone: Start: 12-18-2023 Non-patient / Non-visit RODNEY Clark Work Phone: [facility] Work Phone: Start: 12-16-2023 End: 12-24-2023 Evaluation and management of inpatient RODNEY Clark Work Phone: [facility] Work Phone: Start: 11-26-2023 Registered Recurring [employer]PER[employer] Gary Clark Work Phone: [facility] Start: 11-18-2023 End: 11-18-2023 ambulatory ALANNAH JAMES Not Available Start: 10-04-2023 End: 10-04-2023 [facility] visit, estab pt 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: [facility] Work Phone: Start: 10-04-2023 End: 10-04-2023 General 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: [facility] Work Phone: Start: 10-04-2023 End: 10-04-2023 Patient encounter procedure 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: [facility] Work Phone: Start: 09-27-2023 End: 09-27-2023 ambulatory YANDEL DANIEL Facility:[facility] Start: 09-27-2023 End: 09-27-2023 Patient encounter procedure Yandel Daniel MD Work Phone: Otolaryngology Comment on above: Nontoxic multinodula r goiter (Primary Dx); Thyroid nodule Start: 09-18-2023 End: 09-18-2023 ambulatory ALANNAH Melissa JAMES Not Available Start: 08-28-2023 End: 08-28-2023 ambulatory ALANNAH JAMES Not Available Start: 08-20-2023 End: 08-20-2023 Admission to same day surgery center [facility] [place] Start: 08-20-2023 End: 08-20-2023 ambulatory NON STAFF [facility] Work Phone: Start: 08-16-2023 Non-patient / Non-visit [facility] Work Phone: Start: 08-15-2023 End: 08-20-2023 Evaluation and management of inpatient [facility] Work Phone: Start: 08-14-2023 End: 08-14-2023 ambulatory ALANNAH W JAILYN Not Available Start: 08-14-2023 End: 08-14-2023 ambulatory JOHAN HOWELL Not Available Start: 08-09-2023 Telephone encounter Yandel mccollum MD Work Phone: [facility] [place] Comment on above: Patient Question Start: 07-16-2023 [...] Not Available Start: 06-28-2023 End: 06-28-2023 ambulatory [facility] Facility:[facility] Start: 06-18-2023 End: 06-22-2023 ambulatory [facility] Facility:[facility] Start: 05-30-2023 End: 05-31-2023 ambulatory [facility] Facility:[facility] Start: 05-30-2023 End: 05-30-2023 ambulatory [facility] Start: 05-30-2023 Encounter for other preprocedural examination [facility] Start: 05-22-2023 End: 05-22-2023 Patient encounter procedure Karla Clark CNP Work Phone: [facility] Work Phone: Start: 05-22-2023 End: 05-22-2023 FQHC visit, estab pt 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: [facility] Work Phone: Start: 05-22-2023 End: 05-22-2023 General Karla Clark CNP Work Phone: [facility] Work Phone: Start: 04-11-2023 End: 04-12-2023 ambulatory YANDEL DANIEL Facility:[facility] Start: 03-26-2023 End: 03-28-2023 Evaluation and management of inpatient RODNEY Clark Work Phone: [facility] Work Phone: Start: 03-26-2023 End: 03-28-2023 observation encounter RODNEY Clark Work Phone: [facility] Work Phone: Start: 03-11-2023 End: 03-15-2023 Evaluation and management of inpatient RODNEY Clark Work Phone: [facility] Work Phone: Start: 03-11-2023 End: 03-11-2023 Departed Referred RODNEY Clark Work Phone: [facility] [place] Work Phone: Start: 12-12-2022 Office outpatient vi sit 15 minutes [facility] Start: 12-12-2022 End: 12-12-2022 ambulatory RODNEY Clark Work Phone: [facility] Work Phone: Start: 12-12-2022 End: 12-12-2022 Patient encounter procedure RODNEY Clark Work Phone: [facility] Start: 11-19-2022 End: 02-28-2023 General 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: [facility] Work Phone: Start: 11-19-2022 End: 02-28-2023 FQHC visit, estab pt 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: [facility] Work Phone: Start: 10-31-2022 Postop follow up vis it related to original px [facility] Start: 10-31-2022 End: 10-31-2022 ambulatory PHYSICIAN [facility] Work Phone: Start: 10-31-2022 End: 10-31-2022 Patient encounter procedure PHYSICIAN NO [facility] Start: 10-31-2022 End: 10-31-2022 ambulatory REKHA GALICIA Facility: Start: 2022 End: 2022 ambulatory [facility] Other [employer] Other Start: 2022 Telephone encounter [facility] Start: 10-23-2022 Registered Recurring RODNEY Clark Work Phone: [facility] Start: 10-05-2022 End: 10-05-2022 ambulatory Emory Adame Other [employer] Other Start: 10-05-2022 Telephone encounter [facility] Start: 10-03-2022 Postop follow up vis it related to original px [facility] Start: 10-03-2022 End: 10-03-2022 ambulatory PHYSICIAN NO [facility] [employer] Other Start: 10-03-2022 End: 10-03-2022 Patient encounter procedure PHYSICIAN [facility] Start: 09-18-2022 End: 09-18-2022 FQHC visit, estab pt 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: [facility] Work Phone: Start: 09-18-2022 End: 09-18-2022 General 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: [facility] Work Phone: Start: 09-13-2022 End: 09-14-2022 Admission to same day surgery center PHYSICIAN NO [facility] [place] Start: 09-13-2022 End: 09-14-2022 ambulatory PHYSICIAN NO [facility] Work Phone: Start: 09-11-2022 Telephone encounter [facility] Start: 09-11-2022 End: 09-11-2022 ambulatory METAL B[employer]ING PRESS OPERATOR Karla Blackburn Amber Work Phone: [facility] Work Phone: Start: 09-11-2022 End: 09-11-2022 Patient encounter procedure METAL BONDING PRESS OPERATORStacy Clark Work Phone: [facility]-Pre-Surgical Testing Work Phone: Start: 09-10-2022 FQHC visit new patient [facility] Start: 09-10-2022 End: 09-10-2022 ambulatory Emory Ad[facility] Other [employer] Other Start: 09-10-2022 End: 09-10-2022 Patient encounter procedure DO [facility] Work Phone: [facility] Start: 09-06-2022 End: 09-06-2022 ambulatory MS KARLA CLARK Facility: Start: 08-27-2022 End: 08-27-2022 General Carolin ATWOOD Work Phone: [facility] Work Phone: Start: 08-27-2022 End: 08-27-2022 Adult health examination 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: [facility] Work Phone: Start: 08-27-2022 End: 08-27-2022 FQHC visit, estab pt 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: [facility] Work Phone: Start: 08-22-2022 End: 08-22-[address] DOCTOR CHAVEZ Facility:[facility] Start: 08-16-2022 End: 08-16-2022 Subsequent hospital visit by physician Karla Clark APRN - CLINICAL PHARMACY TECHNICIAN Work Phone: [facility] Laboratory Comment on above: Cutaneous candidiasi s; Screening for malignant neoplasm of cervix Start: 08-03-2022 End: 08-03-2022 ambulatory REKHA AB Facility:[facility] Start: 06-18-2022 End: 06-18-2022 FQHC visit, estab pt 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: [facility] Work Phone: Start: 03-22-2022 End: 03-22-2022 FQHC visit, estab pt Yin Feliz [facility] Work Phone: [facility] Work Phone: Start: 03-20-2022 End: 03-20-2022 FQHC visit, estab pt Yin Feliz [facility] Work Phone: [facility] Work Phone: Start: 03-06-2022 End: 03-06-2022 Preoperative state [facility] Room [facility] Echocardiograph y Start: 03-06-2022 End: 03-06-2022 Subsequent hospital visit by physician [facility] Echo Room [facility] Echocardiography Comment on above: Pre-operative cleara nce; Abnormal EKG; History of NH (myocardial infarction) Start: 12-20-2021 End: 12-20-2021 FQHC visit, estab pt 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: [facility] Work Phone: Start: 11-03-2021 End: 11-03-2021 FQHC visit, estab pt Yin Feliz [facility] Work Phone: [facility] Work Phone: Start: 11-03-2021 End: 11-03-2021 FQHC visit, estab pt Yin Feliz [facility] Work Phone: [facility] Work Phone: Start: 09-28-2021 End: 11-03-2021 Pre-admission assessment Deepti Britt [facility] Start: 08-01-2021 End: 08-01-2021 Patient encounter status Karla Clark METAL BONDING PRESS OPERATOR - CLINICAL PHARMACY TECHNICIAN Work Phone: [facility] Laboratory Start: 08-01-2021 End: 08-03-2021 Subsequent hospital visit by physician Frantz Mri Scanner [facility] Laboratory Comment on above: Pre-procedure lab ex am Breast lump on right side at 4 o'clock position Start: 07-28-2021 End: 07-28-2021 FQHC visit, estab pt 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: [facility] Work Phone: Start: 05-08-2021 End: 05-08-2021 Adult health examination Karla Amber CLINICAL PHARMACY TECHNICIAN Work Phone: [facility] Work Phone: Start: 05-08-2021 End: 05-08-2021 FQHC visit, estab pt Karlajulius Clark CLINICAL PHARMACY TECHNICIAN Work Phone: [facility] Work Phone: Start: 11-11-2020 End: 11-13-2020 Subsequent hospital visit by physician Frantz Gen Radiologist [facility] Mammography Comment on above: History of breast bi opsy Start: 07-21-2020 End: 07-21-2020 Subsequent hospital visit by physician Karla RANDOLPH Laboratory Start: 07-14-2020 End: 07-14-2020 Subsequent hospital visit by physician Karla Clark [facility] Laboratory Start: 07-14-2020 End: 07-14-2020 Subsequent hospital visit by physician Karla Clark [facility] Laboratory Start: 07-08-2020 End: 07-08-2020 Subsequent [facility] Start: 06-30-2020 End: 07-02-2020 Subsequent hospital visit by physician Frantz Lab Drawing Room [facility] Laboratory Comment on above: Arrived Hyperprolactinemia ( HCC) Start: 06-17-2020 End: 06-17-2020 Established patient Karla Clark Work Phone: [facility] Work Phone: Start: 06-08-2020 End: 06-10-2020 Subsequent hospital visit by physician Frantz Gen Radiologist [facility] Ultrasound Comment on above: Abnormal ultrasound of breast; Lesion of breast Start: 06-08-2020 End: 06-10-2020 Subsequent hospital visit by physician Frantz Mammography Room [facility] Mammography Comment on above: Abnormal mammogram Start: 06-06-2020 End: 06-06-2020 Established patient Karla Clark Work Phone: [facility] Work Phone: Start: 06-06-2020 End: 06-06-2020 Subsequent hospital visit by physician Karla RANDOLPH Laboratory Start: 05-06-2020 End: 05-06-2020 Patient encounter procedure Karla Clark Work Phone: [facility] Work Phone: Start: 04-04-2020 End: 04-06-2020 Subsequent hospital visit by physician Frantz Ultrasound Room [facility] Ultrasound Comment on above: Abnormal mammogram Start: 03-31-2020 End: 03-31-2020 Subsequent hospital visit by physician Karla [facility] Start: 03-31-2020 End: 03-31-2020 Established patient Karla Clark Work Phone: [facility] Work Phone: Start: 03-14-2020 End: 03-14-2020 Nursing evaluation of patient and report Karla Amber Work Phone: [facility] Work Phone: Start: 03-10-2020 End: 03-10-2020 Subsequent hospital visit by physician Karla GLORIA [facility] Start: 03-04-2020 End: 03-04-2020 Patient encounter procedure Karla Clark Work Phone: [facility] Work Phone: Start: 02-26-2020 End: 02-26-2020 Patient encounter procedure Karla Clark Work Phone: [facility] Work Phone: Start: 02-26-2020 End: 02-26-2020 Established patient Karla Clark Work Phone: [facility] Work Phone: Start: 11-19-2019 End: 11-19-2019 Patient encounter procedure Carolin Oneill Work Phone: [facility] Work Phone: Start: 11-19-2019 End: 11-19-2019 Telemedicine consultation with patient Karla Clark Work Phone: [facility] Work Phone: Start: 08-31-2019 End: 08-31-2019 Telemedicine consultation with patient Karal Clark Work Phone: [facility] Work Phone: Start: 08-03-2019 End: 08-03-2019 Subsequent hospital visit by physician Karla KEY[facility] Laboratory Start: 07-23-2019 End: 07-23-2019 Established patient Karla Clark Work Phone: [facility] Work Phone: Start: 06-05-2019 End: 06-05-2019 Patient encounter procedure Karla Amber Work Phone: [facility] Work Phone: Start: 05-28-2019 End: 05-28-2019 Patient encounter procedure Telma Connor Work Phone: [facility] Work Phone: Start: 04-23-2019 End: 04-23-2019 ambulatory Karla Amber Work Phone: [facility] Work Phone: Start: 04-15-2019 End: 04-15-2019 Established patient Brandy Kelley Work Phone: [facility] Work Phone: Start: 04-10-2019 End: 04-12-2019 [...] 03-05-2019 Established patient Karla Clark Work Phone: [facility] Work Phone: Start: 02-16-2019 End: 02-18-2019 Subsequent hospital visit by physician Frantz Xr Dr Room [address] [facility] Radiology Comment on above: Right foot pain Start: 12-22-2018 End: 12-22-2018 Established patient Karla Clark Work Phone: [facility] Work Phone: Start: 11-11-2018 End: 11-11-2018 Patient encounter procedure Karla Clark Work Phone: [facility] Work Phone: Start: 11-06-2018 End: 11-06-2018 Established patient Karla Clark Work Phone: [facility] Work Phone: Start: 09-11-2018 End: 09-11-2018 Established patient Karla Clark Work Phone: [facility] Work Phone: Start: 09-11-2018 End: 09-11-2018 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 Karla Clark CNP Work Phone: [facility] Work Phone: Start: 09-04-2018 End: 09-04-2018 Established patient Karla Clark Work Phone: [facility] Work Phone: Start: 09-04-2018 End: 09-04-2018 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: [facility] Work Phone: Start: 07-31-2018 End: 07-31-2018 Established patient Karla Clark Work Phone: [facility] Work Phone: Start: 05-08-2018 Office outpatient vi sit 15 minutes Karla Clark Other [facility] Start: 05-08-2018 End: 05-08-2018 Patient encounter procedure 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: [facility] Work Phone: Start: 03-20-2018 End: 03-20-2018 Patient encounter procedure Conversion Provider Work Phone: [facility] Work Phone: Start: 03-20-2018 Office outpatient vi sit 5 minutes Karla Clark Other [facility] Start: 02-13-2018 Medical Karla Clark Other [facility] Start: 02-13-2018 End: 02-13-2018 Office outpatient visit 5 minutes Karla Clark Other [facility] Start: 02-13-2018 Evaluation and manag ement of established outpatient in office or other outpatient facility Karla Clark [facility] Start: 02-11-2018 Medical Karla Clark Other [facility] Start: 02-11-2018 End: 02-11-2018 Office outpatient visit 5 minutes Karla Amber Other [facility] Start: 02-11-2018 End: 02-11-2018 Patient encounter procedure Karla Clark CNP Work Phone: [facility] Work Phone: Start: 12-19-2017 End: 12-19-2017 Office outpatient visit 15 minutes Karla Clark Other [facility] Start: 12-19-2017 End: 12-19-2017 Patient encounter procedure Karla Clark CNP Work Phone: [facility] Work Phone: Start: 10-08-2017 End: 10-08-2017 Patient encounter procedure Karla Clark CNP Work Phone: [facility] Work Phone: Start: 10-08-2017 End: 10-08-2017 Office outpatient visit 15 minutes Karla Clark Other [facility] Start: 09-17-2017 End: 09-17-2017 Patient encounter procedure Karla Clark CNP Work Phone: [facility] Work Phone: Start: 09-17-2017 Laboratory examinati on, unspecified Karla Clark [facility] Start: 09-17-2017 Physical examination Karla Quinones [facility] Start: 09-17-2017 Comprehensive metabo lic panel Karla Clark [facility] Start: 09-17-2017 End: 09-17-2017 Office outpatient visit 15 minutes Karla Clark Other [facility] Start: 07-30-2017 End: 07-30-2017 Periodic preventive med est patient 40-64yrs Karla Clark Other [facility] Start: 05-14-2017 End: 05-14-2017 Office outpatient visit 15 minutes Karla Clark Other [facility] Start: 04-18-2017 End: 04-18-2017 Medical Karla Clark Other [facility] Start: 03-07-2017 End: 03-07-2017 Evaluation and management of established outpatient in office or other outpatient facility Karla Clark [facility] Start: 03-07-2017 End: 03-07-2017 TB Read Karla Clark Other [facility] Start: 03-05-2017 Physical examination Karla Quinones [facility] Start: 03-05-2017 End: 03-05-2017 Office outpatient visit 15 minutes Karla Clark Other [facility] Start: 03-05-2017 Tobacco use cessatio n intensive >10 minutes Karlajulius Clark [facility] Start: 01-01-2017 Ct head/brain w/o & w/contrast [facility] Start: 01-01-2017 End: 01-01-2017 Office outpatient visit 15 minutes Karla Clark Other [facility] Start: 12-06-2016 End: 12-06-2016 Office outpatient visit 15 minutes Karla Clark Other [facility] Start: 11-06-2016 End: 11-06-2016 Office outpatient visit 15 minutes Karla Clark Other [facility] Start: 11-06-2016 Urinalysis qual/semi quant except immunoassays [facility] Start: 09-27-2016 End: 09-27-2016 Office outpatient visit 15 minutes Karla Clark Other [facility] Start: 08-21-2016 End: 08-21-2016 Office outpatient visit 15 minutes Karla Clark Other [facility] Start: 06-26-2016 End: 06-26-2016 Office outpatient visit 15 minutes Karla Amber Other [facility] Start: 06-26-2016 Tobacco use cessatio n intermediate 3-10 minutes Karla Amber [facility] Start: 06-12-2016 End: 06-12-2016 Office outpatient visit 15 minutes Karlajulius Clark Other [facility] Start: 05-22-2016 End: 05-22-2016 Office outpatient visit 25 minutes Karla Amber Other [facility] Start: 04-10-2016 End: 04-10-2016 Office outpatient visit 15 minutes Karla Amber Other [facility] Start: 03-20-2016 Tobacco use cessatio n intermediate 3-10 minutes [facility] Start: 03-20-2016 End: 03-20-2016 Office outpatient visit 15 minutes Karlajulius Clark Other [facility] Start: 03-09-2016 Evaluation and manag ement of established outpatient in office or other [facility] Start: 03-09-2016 End: 03-09-2016 Office outpatient visit 5 minutes Karlajulius Clark Other [facility] Start: 03-06-2016 End: 03-06-2016 Office outpatient visit 15 minutes Karla Amber Other [facility] Start: 02-21-2016 End: 02-21-2016 Office outpatient visit 15 minutes Karla Amber Other [facility] Start: 01-12-2016 Tobacco use cessatio n intermediate 3-10 minutes [facility] Start: 01-11-2016 End: 01-11-2016 Office outpatient visit 15 minutes Karla Amber Other [facility] Start: 12-08-2015 End: 12-08-2015 Office outpatient visit 15 minutes Karla Amber Other [facility] Start: 10-25-2015 Culture bct isol&prs mptv id isolate ea urine [facility] Start: 10-25-2015 End: 10-25-2015 Office outpatient visit 15 minutes Karla Clark Other [facility] Start: 09-22-2015 End: 09-22-2015 Office outpatient visit 15 minutes Karlajulius Clark Other [facility] Start: 09-08-2015 Iadna chlamydia trachomatis amplified probe tq [facility] Start: 09-08-2015 End: 09-08-2015 Office outpatient visit 15 minutes Karla Clark Other [facility] Procedures Date Procedure Procedure Detail Performing [...] assmt w/score & docd/stand instrument Vida Culp CLINICAL PHARMACY TECHNICIAN Work Phone: Start: 01-27-2024 Current tobacco non-user cad cap copd pv dm Vida Culp CLINICAL PHARMACY TECHNICIAN Work Phone: Start: 01-27-2024 Depression screening Visit For: Screening Exam Depression Vida Culp CLINICAL PHARMACY TECHNICIAN Work Phone: Start: 01-27-2024 FQHC visit, estab pt Vida Culp CLINICAL PHARMACY TECHNICIAN Work Phone: Start: 01-27-2024 Most recent diastolic blood pressure < 80 mm hg Vida Culp CLINICAL PHARMACY TECHNICIAN Work Phone: Start: 01-27-2024 Most recent systolic blood press 130-139mm hg Vidaashley Culp CLINICAL PHARMACY TECHNICIAN Work Phone: Start: 10-04-2023 Behav assmt w/score & docd/stand instrument 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: Start: 10-04-2023 Current tobacco smoker 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: Start: 10-04-2023 FQHC visit, estab pt 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: Start: 10-04-2023 Most recent diastolic blood pressure 80-89 mm hg 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: Start: 10-04-2023 Most recent systolic [...] CT of abdomen and pelvis without contrast METAL BONDING PRESS OPERATORStacy Clark Work Phone: Start: 03-14-2023 Computed tomography of abdomen and pelvis with contrast RODNEY Clark Work Phone: Start: 03-12-2023 Urine culture METAL BONDING PRESS OPERATOR Karla Clark Work Phone: Start: 02-28-2023 Asthma Control Test/Baseline Evaluation Lina Penix CLINICAL PHARMACY TECHNICIAN Work Phone: Start: 02-28-2023 Current tobacco smoker Lina Penix CLINICAL PHARMACY TECHNICIAN Work Phone: Start: 02-28-2023 FQHC visit, estab pt Lina Penix CLINICAL PHARMACY TECHNICIAN Work Phone: Start: 02-28-2023 Most recent diastolic blood pressure < 80 mm hg Lina Penix CLINICAL PHARMACY TECHNICIAN Work Phone: Start: 02-28-2023 Most recent systolic blood pressure <130 mm hg Aaron Whitaker CLINICAL PHARMACY TECHNICIAN Work Phone: Start: 02-28-2023 Pt scrnd tobacco use rcvd tobacco cessation talk Aaron Whitaker CLINICAL PHARMACY TECHNICIAN Work Phone: Start: 02-28-2023 Screening for malignant neoplasm of breast Visit For: Screening Exam Malignant Neoplasm Breast Aaron Whitaker CLINICAL PHARMACY TECHNICIAN Work Phone: Start: 12-12-2022 Plain X-ray of right shoulder METAL BONDING PRESS OPERATOR Karla Clark Work Phone: Start: 11-19-2022 Current [...] blood pres>/equal 140 mm hg 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: Start: 09-18-2022 Pt scrnd tobacco [...] 03-20-2022 Psychotherapy w/patient 30 minutes Yin Feliz [facility] Work Phone: Start: 12-20-2021 Antibody hiv-1&hiv-2 [...] scrnd tobacco use rcvd tobacco cessation talk Karal Clark CNP Work Phone: Start: 11-03-2021 Psychotherapy w/patient 30 minutes Yin Feliz [facility] Work Phone: Start: 08-10-2021 Microscopic observation [Identifier] in Cervix by Cyto stain [facility] Room Start: 08-01-2021 Mri breast without&with contrast w/cad bilateral She Spencer MET[employer] B[employer]ING PRESS OPERATOR - CN Work Phone: Start: 08-01-2021 Creatinine blood She Spencer METAL BONDING PRESS OPERATOR - CN Work Phone: Start: 07-28-2021 Pt scrnd tobacco use rcvd tobacco cessation talk Karla Clark CNP Work Phone: Start: 05-08-2021 Blood occult fecal hgb deter ia qual feces 1-3 Karla Clark CNP Work Phone: Start: 05-08-2021 Most recent diastolic blood pressure < 80 mm hg Karla Clark CNP Work Phone: Start: 05-08-2021 Most recent systolic blood press 130-139mm hg 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: Start: 11-25-2020 Lipid 1996 panel - Serum or Plasma Yandel Daniel MD Work Phone: Start: 11-11-2020 End: 11-11-2020 Diagnostic mammography computer-aided detcj bi She Jacobsen Spencer METAL BONDING PRESS OPERATOR - CNM Work Phone: Start: 07-21-2020 [...] Phone: Start: 07-31-2018 ABNORMAL ELECTROCARDIOGRAM 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: Start: 07-31-2018 ASTHMA 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: Start: 07-31-2018 BIPOLAR DISORDER NOS 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: Start: 07-31-2018 CARDIOVASCULAR DISORDERS Karla Clark CN P Work Phone: Start: 07-31-2018 DEPRESSION 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: Start: 07-31-2018 PSYCHIATRIC DISORDERS 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: Start: 07-31-2018 RESPIRATORY DISORDERS 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: Start: 07-31-2018 Urnls dip stick/tablet [...] Ct head/brain w/o & w/contrast material Karla Calrk Start: 01-01-2017 End: 01-01-2017 HIV SCREENING *in-house* Karla Clark Start: 12-06-2016 End: 12-06-2016 HIV SCREENING *in-house* Karla Clark Start: 11-06-2016 Culture bacterial quanttative colony count urine Karla Clrak Start: 11-06-2016 End: 11-06-2016 Urinalysis qual/semiquant except [...] DTaP/Tdap/Td vaccine (2 - Td or Tdap) [facility] [employer] Start: 12-28-2027 DTaP/Tdap/Td vaccine (3 - Td or Tdap) DTaP/Tdap/Td vaccine (3 - Td or Tdap) [facility] [employer] Start: 12-28-2027 DTaP/Tdap/Td vaccine (3 - Td) DTaP/Tdap/Td vaccine (3 - Td) [facility] Start: 12-28-2027 Urine microalbumin profile DTaP,Tdap,Td Vaccine (3 - Td or Tdap) [facility] Start: 06-20-2026 Diabetes Screening Diabetes Screening [facility] Start: 11-25-2025 Lipid panel [facility] Start: 07-14-2025 Lipid panel [facility] Start: 07-08-2025 Lipid panel Lipid screen [facility] Work Phone: Start: 06-01-2025 Screening for malignant neoplasm of breast Breast cancer screen [facility] Start: 04-23-2025 GFR test (Diabetes, CKD 3-4, OR last GFR 15-59) GFR test (Diabetes, CKD 3-4, OR last GFR 15-59) [facility] Start: 03-10-2025 Lipid panel Lipid screen [place], [place] Start: 02-22-2025 End: 02-22-2025 Patient encounter procedure 02/22/2025 2:30 PM EDT Office Visit [facility] [address] - [address] Floor, [place] [place] [address] Paramjit Olvera MD [address] [facility] [address] [place], [place] [id number] 3 month follow up [facility] Comment on above: 3 month follow up Start: 01-01-2025 Influenza vaccination Flu vaccine (#1) [facility] Start: 08-25-2024 COVID-19 Vaccine ( season) COVID-19 Vaccine ( season) [facility] Start: 08-18-2024 End: 08-18-2024 Patient encounter procedure 08/18/2024 1:00 PM EDT Office Visit [facility] [address] [place] [id number] Musa Lua, [address] [place] [address] [facility] Start: 08-10-2024 Screening for malignant neoplasm of cervix [facility] Start: 08-03-2024 End: 08-03-2024 Patient encounter procedure 08/03/2024 1:20 PM EST Office Visit [facility] Part of [address] [id number] Héctor Turner MD [address] [place] [address] [facility] Part of [facility] Comment on above: One year follow up Start: 08-02-2024 Lipid panel Lipid screen [facility] [place], [place] Start: 07-17-2024 [facility] Start: 06-27-2024 COVID-19 Vaccine ( season) COVID-19 Vaccine ( season) [facility] Start: 06-21-2024 Creatinine measurement Serum Creatinine [facility] Start: 06-20-2024 Complete blood count Hemoglobin/Hematocrit [facility] Start: 06-03-2024 Annual Wellness Visit (Medicare Advantage) Annual Wellness Visit (Medicare Advantage) [facility] Juan Pablo [facility] Start: 05-30-2024 BP Controlled (<130/80) BP Controlled (<130/80) [facility] Start: 04-06-2024 FQHC visit, estab pt Medical Established Patient [facility] Work Phone: Start: 04-06-2024 End: 04-06-2024 Patient encounter procedure 04/06/2024 1:00 PM EST Office Visit [facility] [address] [place] [phone] Lluu Morocho NP [address] [place] [address] [facility] [address] Start: 03-19-2024 End: 03-19-2024 Patient encounter procedure 03/19/2024 2:30 PM EDT Office Visit [facility] [address] [place] [address] Dakota Mack MD [address] [place] [address] [facility] Start: 02-26-2024 End: 02-26-2024 ambulatory 02/26/2024 2:00 PM EDT Evaluation [facility] [address] [place] [address] Carito Maloney, PT [facility] Start: 02-25-2024 End: 02-25-2024 Patient encounter procedure [facility] Comment on above: Arrived Start: 02-18-2024 End: 02-17-2025 EMG 2 Extremities EMG 2 Extremities Neurology Routine Gait instability Expected: 02/18/2024, Expires: 02/17/2025 [facility] Work Phone: Comment on above: Expected: 02/18/2024, Expires: Start: 02-02-2024 Influenza vaccination [facility] Start: 01-27-2024 Neurology [facility] Work Phone: Comment on above: Note: Please make a referral to: Start: 01-27-2024 End: 01-27-2024 Patient education based on identified need [facility] Start: 01-02-2024 Influenza vaccination Flu vaccine (#1) Bon Juan Pablo [facility] Start: 12-24-2023 [facility] Start: 11-15-2023 Lipid screen Lipid screen [facility] [place] Start: 11-15-2023 Physical Therapy [facility] Work Phone: Comment on above: Note: Please make a referral to: Start: 11-03-2023 Cologuard [facility] Start: 10-04-2023 FQHC visit, estab pt Medical Established Patient [facility] Work Phone: Start: 10-04-2023 End: 10-04-2023 Patient education based on identified need [facility] Start: 08-27-2023 End: 08-27-2023 Patient encounter procedure 08/27/2023 Office Visit Obstetrics and Gynecology She Spencer, METAL BONDING PRESS OPERATOR - CNM [address] [facility] [address] [place] [address] [facility] Start: 08-20-2023 Excision of lesion of cheek OR Cheek Lesion Exc W/Flap Recon (Not Applicable) [facility] Start: 08-20-2023 End: 08-20-2023 [facility] Start: 08-20-2023 [facility] Start: 08-15-2023 Hospital admission [facility] Start: 08-15-2023 [facility] Start: 07-16-2023 End: 07-16-2023 Patient encounter procedure 07/16/2023 1:20 PM EST Office Visit [facility] [address] [place] [address] Dakota Mack MD [address] [place] [address] Arrived [facility] Comment on above: Arrived Start: 07-11-2023 End: 07-11-2023 Patient encounter procedure 07/11/2023 Office Visit Cardiology Juju Irby PA-C [address] [place] [address] [facility] Start: 06-03-2023 Advance Directive Discussion Advance Directive Discussion [facility] Start: 06-03-2023 Annual Wellness Visit (Medicare Advantage) Annual Wellness Visit (Medicare Advantage) Charly Almeida [facility] Start: 06-03-2023 Behavioral Health Screening Behavioral Health Screening [facility] Start: 06-03-2023 Depression Assessment Depression Assessment [facility] Start: 05-23-2023 FQHC visit, estab pt Medical Established Patient [facility] Work Phone: Start: 05-22-2023 Dermatology [facility] Work Phone: Comment on above: Note: Please make a referral to: [facility] Start: 05-22-2023 End: 05-22-2023 Patient education based on identified need [facility] Start: 04-20-2023 Urinalysis [facility] Start: 03-30-2023 Mammography Mammogram - Screening ([id number]) [facility] Start: 03-28-2023 FQHC visit, estab pt Medical Established Patient [facility] Work Phone: Start: 03-28-2023 [facility] Start: 03-26-2023 Urine culture Urine Culture [facility] Start: 03-26-2023 Referral to clinical water safety teacher [facility] Start: 03-26-2023 Hospital admission [facility] Start: 03-15-2023 [facility] Start: 03-13-2023 Referral to clinical water safety teacher [facility] Start: 03-12-2023 Hospital admission [facility] Start: 03-12-2023 [facility] Start: 03-01-2023 FQHC visit, estab pt Medical Established Patient [facility] Work Phone: Start: 02-28-2023 FQHC visit, estab pt Medical Established Patient [facility] Work Phone: Start: 02-28-2023 End: 02-28-2023 Patient education based on identified need [facility] Start: 02-01-2023 Covid-19 Vaccine () Covid-19 Vaccine () [facility] Start: 11-19-2022 End: 11-19-2022 Patient education based on identified need [facility] Start: 11-13-2022 FQHC visit, estab pt Medical Established Patient [facility] Work Phone: Start: 09-18-2022 FQHC visit, estab pt Medical Established Patient [facility] Work Phone: Start: 09-18-2022 End: 09-18-2022 Patient education based on identified need [facility] Start: 09-13-2022 [facility] Start: 09-01-2022 CBC W Auto Differential panel - Blood [facility] Start: 09-01-2022 Lipid 1996 panel - Serum or Plasma LIPID PROFILE [facility] Start: 08-27-2022 End: 08-27-2022 Patient education based on identified need [facility] Start: 08-27-2022 End: 08-27-2022 Provider instructions for treatment Intervention and counseling on cessation of tobacco use, 3-10 minutes Discussed medication and nicotine replacement for tobacco cessation [facility] Start: 08-16-2022 End: 08-16-2022 Patient encounter procedure 08/16/2022 Office Visit Obstetrics and Gynecology She Spencer, RODNEY - CNM [address] [place] [address] [facility] Start: 07-04-2022 End: 07-04-2022 Patient encounter procedure 07/04/2022 Office Visit Cardiology Juju Irby PA-C [address] [place] [address] [facility] Start: 06-26-2022 FQHC visit, estab pt Medical Established Patient [facility] Work Phone: Start: 06-18-2022 End: 06-18-2022 Patient education based on identified need [facility] Start: 05-08-2022 Screening for malignant neoplasm of colon [facility] Start: 03-20-2022 End: 03-20-2022 Patient education based on identified need [facility] Start: 01-10-2022 Annual Wellness Visit (AWV) Annual Wellness Visit (AWV) [facility] Start: 01-01-2022 Influenza vaccination Flu vaccine (#1) [facility] Start: 12-20-2021 End: 12-20-2021 Patient education based on identified need [facility] Start: 12-15-2021 FQHC visit, estab pt Medical Established Patient [facility] Work Phone: Start: 11-11-2021 Screening for malignant neoplasm of breast [facility] Start: 11-03-2021 Cardiology [facility] Work Phone: Comment on above: Note: Please make a referral to: Start: 11-03-2021 End: 11-03-2021 Patient education based on identified need [facility] Start: 2021 Screening for osteoporosis Bone Density Screening [facility] Start: 10-10-2021 COVID-19 Vaccine (4 - Booster for Moderna series) COVID-19 Vaccine (4 - Booster for Moderna series) [facility] Start: 08-15-2021 End: 08-15-2021 Patient encounter procedure 08/15/2021 Office Visit Obstetrics and Gynecology She Spencer, RODNEY - CNAlexey [address] [place] [address] [phone] [facility] Start: 08-14-2021 CBC W Auto Differential panel - Blood [facility] Start: 08-10-2021 End: 08-10-2021 Patient encounter procedure 08/10/2021 Office Visit Obstetrics and Gynecology She Spnecer, METAL BONDING PRESS OPERATOR - CNM [address] [place] [address] [facility] Start: 08-07-2021 COVID-19 Vaccine (4 - Booster for Moderna series) COVID-19 Vaccine (4 - Booster for Moderna series) [facility] Start: 07-28-2021 ENT [facility] Work Phone: Comment on above: Note: Please make a referral to: aliyah GUPTA Start: 07-28-2021 End: 07-28-2021 Patient education based on identified need [facility] Start: 07-28-2021 End: 07-28-2021 Provider instructions for treatment Intervention and counseling on cessation of tobacco use, 3-10 minutes Discussed medication and nicotine replacement for tobacco cessation [facility] Start: 07-03-2021 COVID-19 Vaccine (2 - Pfizer 3-dose series) COVID-19 Vaccine (2 - Pfizer 3-dose series) [facility] Start: 06-08-2021 Screening for malignant neoplasm of breast Breast cancer screen [place], [place] Start: 05-15-2021 CBC W Auto Differential panel - Blood [facility] Start: 05-15-2021 Lipid 1996 panel - Serum or Plasma LIPID PROFILE [facility] Start: 05-08-2021 End: 05-08-2021 Patient education based on identified need [facility] Start: 05-01-2021 End: 05-01-2021 Patient encounter procedure 05/01/2021 Office Visit Neurology Bhupinder Iniguez MD [address] [place] [address] [facility] Start: 04-04-2021 Screening for malignant neoplasm of breast Breast cancer screen [place], [place] Start: 03-31-2021 Hemoglobin A1c measurement A1C test (Diabetic or Prediabetic) [facility] Start: 03-31-2021 Pneumococcal 65+ years Vaccine (2 - PPSV23 if available, else PCV20) Pneumococcal 65+ years Vaccine (2 - PPSV23 if available, else PCV20) [facility] Start: 03-31-2021 Pneumococcal 65+ years Vaccine (2 - PPSV23 or PCV20) Pneumococcal 65+ years Vaccine (2 - PPSV23 or PCV20) [facility] Start: 02-01-2021 Influenza vaccination Flu vaccine (#1) [facility] Start: 01-29-2021 Cervical cancer screen Cervical cancer screen [place], [place] Start: 01-29-2021 Screening for malignant neoplasm of cervix Cervical cancer screen [place], [place] Start: 10-17-2020 End: 10-17-2020 Office Visit 10/17/2020 Office Visit Neurology Bhupinder Iniguez MD [address] [place] [address] [facility] Part [facility] Start: 08-11-2020 End: 08-11-2020 Office Visit 08/11/2020 Office Visit Obstetrics and Gynecology She Spencer, RODNEY - CNAlexey [address] [place] [address] [facility] Start: 07-17-2020 [facility] Work Phone: Start: 07-12-2020 End: 07-12-2020 Office Visit 07/12/2020 Office Visit General Surgery Billy Ojeda MD [address] [facility] [address] [place] [address] [facility] Part [facility] Start: 07-07-2020 CBC W Auto Differential panel - Blood [facility] Start: 07-07-2020 Lipid 1996 panel - Serum or Plasma LIPID PROFILE [facility] Start: 06-29-2020 BUN + CREATININE [facility] Start: 06-24-2020 [facility] Work Phone: Start: 06-17-2020 Nephrology [facility] Work Phone: Comment on above: Note: Please make a referral to: Start: 06-08-2020 End: 06-08-2020 Appointment 06/08/2020 Appointment Radiology RadiologistFrantz [facility] Ultrasound Start: 06-06-2020 End: 06-06-2020 Patient education based on identified need [facility] Start: 06-06-2020 Medical Established Patient [facility] Work Phone: Start: 05-26-2020 Pneumococcal Vaccine: 65+ (2 of 2 - PPSV23 or PCV20) Pneumococcal Vaccine: 65+ (2 of 2 - PPSV23 or PCV20) [facility] Start: 05-06-2020 End: 05-06-2020 Patient education based on identified need [facility] Start: 05-06-2020 End: 05-06-2020 Provider instructions for treatment Intervention and counseling on cessation of tobacco use, 3-10 minutes [facility] Start: 05-06-2020 [facility] Work Phone: Start: 04-18-2020 End: 04-18-2020 Office Visit 04/18/2020 Office Visit Neurology Bhupinder Iniguez MD [address] [place] [address] [place] [address] [facility] Start: 04-07-2020 [facility] Work Phone: Start: 04-04-2020 End: 04-04-[address] [facility] Mammography Start: 03-31-2020 End: 03-31-2020 Patient education based on identified need [facility] Start: 03-04-2020 Lipid 1996 panel [facility] Work Phone: Start: 02-26-2020 [facility] Start: 02-26-2020 Screening for malignant neoplasm of breast [facility] Start: 02-26-2020 End: 02-26-2020 Patient education based on identified need [facility] Start: 02-07-2020 Colon Cancer Screen FIT/FOBT Colon Cancer Screen FIT/FOBT [place] Start: 02-07-2020 Screening for malignant neoplasm of colon [facility] Start: 02-02-2020 Influenza vaccination Flu vaccine (#1) [place] Start: 01-30-2020 A1C test (Diabetic or Prediabetic) A1C test (Diabetic or Prediabetic) [place] Comment on above: Postponed from 08/10/2017 (Not Indicated ) Start: 01-30-2020 Hepatitis C screen Hepatitis C screen [place], [place] Comment on above: Postponed from 1956 (Patient Refus ed) Start: 01-30-2020 HIV screen HIV screen [place], [place] Comment on above: Postponed from 10/31/1971 (Patient Refus ed) Start: 01-30-2020 Pneumococcal 0-64 years Vaccine (1 of 1 - PPSV23) Pneumococcal 0-64 years Vaccine (1 of 1 - PPSV23) [place] Comment on above: Postponed from 1962 (Insurance / F inancial) Start: 11-26-2019 Lipid 1996 panel [facility] Work Phone: Start: 11-20-2019 Medical Established Patient [facility] Work Phone: Start: 11-03-2019 End: 11-03-2019 Office Visit 11/03/2019 Office Visit General Surgery Billy Ojeda MD [address] [place] [address] [address] [place] [address] [facility] Start: 09-24-2019 End: 09-24-2019 Office Visit 09/24/2019 Office Visit Neurology Bhupinder Iniguez MD [address] [place] [address] [place] [address] [facility] Neurology specialist [place] Start: 08-31-2019 ENT [facility] Work Phone: Comment on above: Note: Please make a referral to: when sh e can have face to face visit , 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 was seen [facility] Start: 07-23-2019 Medical Established Patient [facility] Work Phone: Start: 06-05-2019 End: 06-05-2019 Patient education based on identified need [facility] Start: 06-05-2019 [facility]- [facility]- F/U [facility] Work Phone: Start: 05-28-2019 End: 05-28-2019 Patient education based on identified need [facility] Start: 04-23-2019 End: 04-23-2019 Patient education based on identified need [facility] Start: 04-23-2019 End: 04-23-2019 Provider instructions for treatment Return to the clinic if condition worsens or new symptoms arise [facility] Start: 04-23-2019 End: 04-23-2019 Office Visit 04/23/2019 Office Visit Neurology Bhupinder Iniguez MD [address] [place] [address] [facility] Neu[facility] specialist [place] Start: 04-20-2019 End: 04-20-2019 Office Visit 04/20/2019 Office Visit General Surgery Billy Ojeda MD [address] [facility] [address] [place], [place] [phone] [place] Start: 04-16-2019 Private Stock [facility] Work Phone: Start: 04-15-2019 End: 04-15-2019 Provider instructions for treatment Intervention and counseling on cessation of tobacco use, 3-10 minutes [facility] Start: 03-05-2019 End: 03-05-2019 Patient education based on identified need [facility] Start: 03-02-2019 End: 03-02-2019 Office Visit 03/02/2019 Office Visit Neurology Bhupinder Iniguez MD [address] [place] [address] [facility] Neu[facility] specialist [place] Start: 02-25-2019 End: 02-25-2019 Appointment 02/25/2019 Appointment Radiology [facility] Start: 02-01-2019 Influenza vaccination [facility]) [facility] Start: 12-22-2018 End: 10-04-2018 Free T4 [Mass/Vol] [facility] Work Phone: Start: 12-11-2018 Breast cancer screen [facility] Start: 11-19-2018 Screening for malignant neoplasm of breast Mammogram Screening [facility] Start: 11-06-2018 FQHC visit, estab pt Established Patient [facility] Work Phone: Start: 10-04-2018 Free T4 [Mass/Vol] [facility] Work Phone: Start: 09-11-2018 End: 10-04-2018 CBC W Auto Differential panel - Blood [facility] Work Phone: Comment on above: Note: Please make a referral to: Start: 09-04-2018 End: 10-04-2018 CBC W Auto Differential panel - Blood CBC with diff (CDP) [facility] Start: 09-04-2018 End: 10-04-2018 Comprehensive metabolic 2000 panel - Serum or Plasma Comprehensive Metabolic Panel (CP) [facility] Start: 09-04-2018 End: 10-04-2018 Lipid panel Lipid Panel (LIPR) [facility] Start: 09-04-2018 End: 10-04-2018 Thyrotropin [Units/volume] in Serum or Plasma TSH [facility] Start: 09-04-2018 End: 10-04-2018 Thyroxine (T4) free [Mass/volume] in Serum or Plasma T4 Free (FT4) [facility] Start: 11-19-2017 Screening mammography Screening mammography of both breasts, two views [facility] Start: 08-10-2017 HbA1c (Bld) [Mass fraction] A1C test (Diabetic or Prediabetic) [facility] Start: 08-10-2017 Hemoglobin A1c measurement A1C test (Diabetic or Prediabetic) [facility] Start: 2016 Respiratory Syncytial Virus (RSV) or age 60 yrs+ (1 - Risk 60-74 years 1-dose series) Respiratory Syncytial Virus (RSV) or age 60 yrs+ (1 - Risk 60-74 years 1-dose series) [facility] [employer] [facility] Start: 2016 RSV Vaccine (1 - 1-dose 60+ series) RSV Vaccine (1 - 1-dose 60+ series) [facility] Start: 03-26-2016 Shingles Vaccine (2 of 3) Shingles Vaccine (2 of 3) [facility] Start: 03-26-2016 Shingrix Vaccine (2 of 3) Shingrix Vaccine (2 of 3) [facility] Start: 2001 Screening for malignant neoplasm of colon [facility] Start: 1986 Screening for malignant neoplasm of cervix HPV (without or with Pap) [facility] Start: 1986 Zoledronic acid therapy Alpha-1 Antitrypsin Deficiency Screening [facility] Start: 1974 Annual PCP Team Chronic Disease Visit Annual PCP Team Chronic Disease Visit [facility] Start: 1974 Hepatitis C screening [facility] [employer] Start: 10-31-1971 HIV screening HIV screen [facility] Start: 1968 Depression Monitoring Depression Monitoring [facility] Start: 1962 Pneumococcal 0-64 years Vaccine (1 of 1 - PPSV23) Pneumococcal 0-64 years Vaccine (1 of 1 - PPSV23) [place] Start: 1962 Pneumococcal 0-64 years Vaccine (1 of 2 - PPSV23) Pneumococcal 0-64 years Vaccine (1 of 2 - PPSV23) [facility] Start: 1956 Hepatitis C screening Hepatitis C screen [facility] Start: 1956 Screening for malignant neoplasm of colon [facility] End: 08-16-2022 Cytopathology procedure, preparation of smear, genital source PAP SMEAR Lab Routine Screening for malignant neoplasm of cervix 1 Occurrences starting 08/16/2022 until 08/16/2022 [facility] [employer] Work Phone: Comment on above: 1 Occurrences starting 08/16/2022 until 08/16/2022 Dermatopathology exam Dermatopat hology exam Pathology and Cytology Timed Neoplasm of unspecified behavior of bone, soft tissue, and skin Release Upon Ordering for 1 Occurrences starting 07/16/2023 [facility] Work Phone: Comment on above: Release Upon Ordering for 1 Occurrences starting 07/16/2023 End: 08-16-2022 Herpes Simplex 1 & 2, Molecular [facility] Work Phone: Comment on above: 1 Occurrences starting 08/16/2022 until 08/16/2022 Patient Education [facility] Work Phone: Patient referral [facility] Work Phone: End: 08-16-2022 Vaginitis DNA Probe [facility] Work Phone: Comment on above: 1 Occurrences starting 08/16/2022 until 08/16/2022 XR Shoulder - right Views [facility] Immunizations Immunization Date Immunization Notes Care Provider Maribeth martel 10-04-2023 pneumococcal vaccine , unspecified formulation; Translations: [PCV-20] Karla Clark [facility] Work Phone: [facility] Comment on above: Note: Patient tolera cornelia well. No signs or symptoms of adverse reactions. Patient waited a minimum of 15 minutes. 10-04-2023 Imm.Admin. 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 over 18 y rs Any Route FIRST Injection (Rendering physcian modifier) [facility] Work Phone: 03-31-2020 Imm.Admin. over 18 y rs Any Route FIRST Injection [facility] Work Phone: 03-14-2020 influenza, seasonal, injectable; Translations: [Flluarix] [facility] Comment on above: Note: pt tolerated w ell, pt waited 10 min in treatment with no adverse effects noted at this time. 03-14-2020 influenza, injectabl e, quadrivalent, preservative free [facility] Work Phone: 03-14-2020 Imm.Admin. over 18 y rs Any Route FIRST Injection [facility] Work Phone: 03-14-2020 Imm.Admin. over 18 y rs Any Route FIRST Injection (Rendering physcian modifier) [facility] Work Phone: 03-14-2020 influenza virus vaccine, unspecified formulation Yandel Daniel MD Work Phone: [facility] 04-15-2019 influenza, injectabl e, quadrivalent, preservative free [facility] Work Phone: 04-15-2019 influenza, seasonal, injectable [facility] Comment on above: Note: Patient tolera cornelia well. No signs or symptoms of adverse reactions. Patient waited in facility for 15 minutes. 03-20-2018 influenza, injectabl e, quadrivalent, preservative free; Translations: [FLU VAC NO PRSV 4 DANNY 3 YRS+] [facility] 03-20-2018 influenza, seasonal, injectable, preservative free [facility] 03-20-2018 IMMUNIZATION ADMIN; Translations: [IMMUNIZATION ADMIN] [facility] 03-20-2018 influenza virus vaccine, unspecified formulation 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: [facility] Work Phone: Comment on above: Note: Influenza (Juan M lt) 03-20-2018 influenza, high dose seasonal, preservative-free [facility] Comment on above: Note: Influenza (Juan M lt) 12-27-2017 tetanus toxoid, redu soren diphtheria toxoid, and acellular pertussis vaccine, adsorbed [address] 03-20-2017 influenza virus vaccine, unspecified formulation [address] 03-20-2017 influenza, seasonal, injectable 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: [facility] 03-05-2017 influenza, injectabl e, quadrivalent, preservative free; Translations: [FLU VAC NO PRSV 4 DANNY 3 YRS+] [facility] 03-05-2017 influenza, seasonal, injectable, preservative free [facility] 03-05-2017 IMMUNIZATION ADMIN; Translations: [IMMUNIZATION ADMIN] [facility] 03-05-2017 influenza virus vaccine, unspecified formulation 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: [facility] Work Phone: Comment on above: Note: Influenza (Juan M lt) 03-05-2017 influenza, high dose seasonal, preservative-free [facility] Comment on above: Note: Influenza (Juan M lt) 04-03-2016 Influenza Vaccine, unspecified formulation [address] 03-20-2016 influenza, injectabl e, quadrivalent, preservative free; Translations: [FLU VAC NO PRSV 4 DANNY 3 YRS+] [facility] 03-20-2016 IMMUNIZATION ADMIN; Translations: [IMMUNIZATION ADMIN] [facility] 03-20-2016 influenza virus vaccine, unspecified formulation 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: [facility] Work Phone: Comment on above: Note: Influenza (Juan M lt) 03-20-2016 influenza, high dose seasonal, preservative-free [facility] Comment on above: Note: Influenza (Juan M lt) 01-30-2016 zoster vaccine, live Mth 2 [facility] 04-08-2015 influenza, seasonal, injectable, preservative free 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: [facility] 11-07-2014 varicella virus vaccine Gary Clark CLINICAL PHARMACY TECHNICIAN Work Phone: [facility] 04-12-2014 influenza virus vaccine, unspecified formulation Mth 2 [facility] 03-05-2012 influenza, seasonal, injectable 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: [facility] 01-06-2009 tetanus toxoid, redu soren diphtheria toxoid, and acellular pertussis vaccine, adsorbed 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: [facility] Payers Date Payer Category Payer Private Health Insurance [id number] 2023 Medicare [id number] 2023 Medicare (Managed Care) ANDRA Blackburn EDJANIY[employer] ADVANTAGE [id number] 2023 Private Health Insurance [id number] 2022 Self-pay 2021 Medicaid [id number] 2014 Unknown [facility] MEDICAID xxxxxxxxxxx 2014-Present [phone] CLAIMS DEPARTMENT [address] [place] [address] xxxxxxxxxxx [id number] 1959 Medicaid [id number] 2013 Unknown [id number] 2.16.840.1.098177.3.441 1959 Medicare [id number]. [id number] 1956 Unknown [id number] 2.16.840.1.468999.3.579.2. 593 1956 Unknown [id number] 2.16.840.1.198570.3.579.2. 593 1956 Unknown [id number] 2.16.840.1.380783.3.579.2. 593 1956 Unknown [id number] 2.16.840.1.139494.3.579.2. 593 1956 Unknown [id number] 2.16.840.1.002087.3.579.2. 1259 1956 Unknown [id number] 2.16.840.1.152986.3.579.2. 1258 1956 Unknown [id number] 2.16.840.1.881127.3.579.2. 1258 1956 Unknown [id number] 2.16.840.1.916432.3.579.2. 1258 1956 Unknown [id number] 2.16.840.1.431604.3.579.2. 1258 1956 Unknown [id number] 2.16.840.1.372879.3.579.2. 1258 1956 Unknown [id number] 2.16.840.1.362359.3.579.2. 1258 1956 Unknown [id number] 2.16.840.1.735023.3.579.2. 1286 1956 Unknown [id number] 2.16.840.1.296911.3.579.2. 175 1956 Unknown [id number] 2.16.840.1.994274.3.579.2. 175 1956 Unknown [id number] 2.16.840.1.971633.3.579.2. 173 Medicaid [id number] Unknown 1 - [employer] Medicare [id number] 200 2.16.840.1.066281.3.140.1. 06826.5.10.6.3 Unknown [id number] 2.16.840.1.887607.3.579.2. 531 Unknown [id number] 2.16.840.1.446474.3.579.2. 531 Unknown [id number] 2.16.840.1.473452.3.579.2. 531 Unknown [id number] 2.16.840.1.484383.3.579.2. 531 Social History Date Type Detail Facility Start[facility] Comment on above: 1/2 PPD Start: 2-4 cups pd [facility] Start: 01-29-2019 End: 08-19-2023 Current every day smoker [facility] Gender identity finding (finding) [facility] Assertion [facility] (finding[facility] Assertion Finding of sexua l orientation (finding) [facility] Tobacco user (finding) [facility] Work Phone: Tobacco smoking status Unknown if ever smoked [facility] History of tobacco use [facility] Start: 01-29-2019 End: 04-23-2024 Cigarettes smoked current (pack per day) - Reported [facility] Start: 01-29-2019 End: 04-23-2024 Alcohol intake No [employer] Start: 1955 Sex Assigned At Not on file [facility] [employer] [place] Start: 03-23-2019 End: 11-09-2024 Alcohol intake Current non-drinker of alcohol (finding) [facility] [employer] [place] Start: 02-27-2022 End: 11-27-2023 Assertion [facility] Alcohol consumpt ion screening (procedure) [facility] Work Phone: Start: 03-23-2019 End: 08-02-2023 Tobacco use and exposure [facility] used [facility] [place] Exposure to SARS-CoV-2 (event) Not sure [facility] [employer] [place] Start: 04-18-2020 End: 01-01-2022 Tobacco Comment I smoke about 3-6 cig/day - 04-18-20. [employer] [place] Assertion Light cigarette smoker (1-9 cigs/day) (finding) [facility] Assertion Exposure to poll ution (event) [facility] Start: 09-11-2022 End: 08-20-2023 Assertion Smoker (finding) [facility] Assertion Finding relating to sexual activity (finding) [facility] Start: 08-02-2023 End: 12-17-2023 Assertion Ex-smoker (finding) [facility] Start: 1955 Sex Assigned At Female [facility] Assertion Currently not se xually active (finding) [facility] Start: 07-16-2023 End: 12-16-2023 Tobacco smoking status NHIS Never smoked tobacco [facility] Start: 06-28-2023 End: 11-18-2023 Alcohol intake Lifetime non-drinker (finding) [facility] Start: 05-30-2023 Tobacco Comment 3-4 cigarettes a day [facility] Start: 08-19-2023 Tobacco Comment 6-10 cigs/day [facility] Start: 07-19-2023 Alcohol Comment caffeine 1-2 cups/da y [facility] Start: 07-13-2012 Sex Female (finding) [employer] NEGATED: Highlighted row Assertion Exposure to pollution (event) [facility] NEGATED: Highlighted row Assertion Current drinker of alcohol (finding) [facility] NEGATED: Highlighted row Assertion Finding relating to drug misuse behavior (finding) [facility] NEGATED: Highlighted row Assertion Tobacco user (finding) [facility] Work Phone: NEGATED: Highlighted row Assertion Illicit drug use (finding) [facility] Work Phone: NEGATED: Highlighted row Assertion Misuse of prescription only drugs (finding) [facility] Work Phone: NEGATED: Highlighted row Assertion [facility] NEGATED: Highlighted row Assertion Contraception (finding) [facility] NEGATED: Highlighted row Assertion Sexually active (finding) [facility] Medical Equipment Procedure Code Equipment Code Equipment Origin al Text Equipment Identifier Dates Open reduction and internal fixation of fracture of humerus CANCELLOUS 7.5 CRUSHED FDA Start: 09-13-2022 Open reduction and internal fixation of fracture of humerus Orthopaedic bone screw, non-bioabsorbable, non-sterile ()[id number] FDA Start: 09-13-2022 Open reduction and internal fixation of fracture of humerus Orthopaedic fixation plate, non-bioabsorbable, sterile ()[id number] FDA Start: 09-13-2022 Open reduction and internal fixation of fracture of humerus Orthopaedic bone wire ()[id number] FDA Start: 09-13-2022 Open reduction and internal fixation of fracture of humerus Orthopaedic bone wire ()[id number] FDA Start: 09-13-2022 Open reduction and internal fixation of fracture of humerus Orthopaedic bone wire ()[id number] FDA Start: 09-13-2022 Open reduction and internal fixation of fracture of humerus Orthopaedic bone screw, non-bioabsorbable, non-sterile ()[id number] FDA Start: 09-13-2022 Open reduction and internal fixation of fracture of humerus Orthopaedic bone screw, non-bioabsorbable, non-sterile ()[id number] FDA Start: 09-13-2022 Open reduction and internal fixation of fracture of humerus Orthopaedic bone screw, non-bioabsorbable, non-sterile ()[id number] FDA Start: 09-13-2022 Open reduction and internal fixation of fracture of humerus Orthopaedic bone screw, non-bioabsorbable, non-sterile ()[id number] FDA Start: 09-13-2022 Open reduction and internal fixation of fracture of humerus Orthopaedic bone screw, non-bioabsorbable, non-sterile ()[id number] FDA Start: 09-13-2022 Open reduction and internal fixation of fracture of humerus Orthopaedic bone screw, non-bioabsorbable, non-sterile ()[id number] FDA Start: 09-13-2022 Open reduction and internal [...] Facility 12-24-2023 Functional status Patient at Baseline [facility] Work Phone: 08-20-2023 Functional status Patient at Baseline [facility] Work Phone: 08-15-2023 Functional status Disability Sta tus Patient at Baseline [facility] Work Phone: 03-28-2023 Functional status Patient at Baseline [facility] Work Phone: 03-15-2023 Functional status Patient at Baseline [facility] Work Phone: Mental Status Date Assessment Result Facility 12-24-2023 Cognitive function Cognitive Sta tus Patient at Baseline [facility] Work Phone: 08-20-2023 Cognitive function Cognitive Sta tus Patient at Baseline [facility] Work Phone: 03-28-2023 Cognitive function Cognitive Sta tus Patient at Baseline [facility] Work Phone: 03-15-2023 Cognitive function Cognitive Sta tus Patient at Baseline [facility] Work Phone: Cognitive function No anxiety Anxiety (fi nding) [facility] Work Phone: Clinical Notes 09-04-2018 to 12-17-2024 Soni Sosa - 12/17/2024 8:30 AM EDT Note Date & Type Note Facility 12-17-2024 History of Presen t illness Narrative Explained policies and procedure of an echocardiogram/Doppler study. documented in this encounter [facility] 06-17-2024 Instructions Includes: Instructions for all patient encounters Intervention and counseling on cessation of tobacco use, 3-10 minutes Discussed medication and nicotine replacement for tobacco cessation Last Documented On 3 8:54AM ; [facility] Intervention and counseling on cessation of tobacco use, 3-10 minutes Discussed medication and nicotine replacement for tobacco cessation Last Documented On 2 1:56PM ; [facility] Intervention and counseling on cessation of tobacco use, 3-10 minutes Last Documented On 0 2:07PM ; [facility] Return to the clinic if cond ition worsens or new symptoms arise Last Documented On 9 1:59PM ; [facility] Intervention and counseling on cessation of tobacco use, 3-10 minutes Last Documented On 9 10:39AM ; [facility] Education and Decision Aids were provided during visit for: Discussed nutritional needs teach healthy choices including fruits and vegetables Last Documented On 4 8:44AM ; [facility] Patient education about a pr oper diet Last Documented On 4 8:44AM ; [facility] Discussed concerns about exe rcise : promote physical activity Last Documented On 4 8:44AM ; [facility] Discussed nutritional needs teach healthy choices including fruits and vegetables Last Documented On 4 1:26PM ; [facility] Patient education about a pr oper diet Last Documented On 4 1:26PM ; [facility] Discussed concerns about exe rcise : promote physical activity Last Documented On 4 1:26PM ; [facility] Discussed nutritional needs teach healthy choices including fruits and vegetables Last Documented On 3 10:55AM ; [facility] Patient education about a pr oper diet Last Documented On 3 10:55AM ; [facility] Discussed concerns about exe rcise : promote physical activity Last Documented On 3 10:55AM ; [facility] Discussed nutritional needs teach healthy choices including fruits and vegetables Last Documented On 3 9:37AM ; [facility] Patient education about a pr oper diet Last Documented On 3 9:37AM ; [facility] Discussed concerns about exe rcise : promote physical activity Last Documented On 3 9:37AM ; [facility] Not requesting contraception Last Documented On 3 9:37AM ; [facility] Discussed nutritional needs teach healthy choices including fruits and vegetables Last Documented On 3 9:20AM ; [facility] Patient education about a pr oper diet Last Documented On 3 9:20AM ; [facility] Discussed concerns about exe rcise : promote physical activity Last Documented On 3 9:20AM ; [facility] Discussed nutritional needs teach healthy choices including fruits and vegetables Last Documented On 3 2:02PM ; [facility] Patient education about a pr oper diet Last Documented On 3 2:02PM ; [facility] Discussed concerns about exe rcise : promote physical activity Last Documented On 3 2:02PM ; [facility] Discussed nutritional needs teach healthy choices including fruits and vegetables Last Documented On 3 8:32AM ; [facility] Patient education about a pr oper diet Last Documented On 3 8:32AM ; [facility] Discussed concerns about exe rcise : promote physical activity Last Documented On 3 8:32AM ; [facility] Discussed nutritional needs teach healthy choices including fruits and vegetables Last Documented On 3 11:28AM ; [facility] Patient education about a pr oper diet Last Documented On 3 11:28AM ; [facility] Discussed concerns about exe rcise : promote physical activity Last Documented On 3 11:28AM ; [facility] Discussed nutritional needs teach healthy choices including fruits and vegetables Last Documented On 2 2:01PM ; [facility] Patient education about a pr oper diet Last Documented On 2 2:01PM ; [facility] Discussed concerns about exe rcise : promote physical activity Last Documented On 2 2:01PM ; [facility] Discussed nutritional needs teach healthy choices including fruits and vegetables Last Documented On 2 2:11PM ; [facility] Patient education about a pr oper diet Last Documented On 2 2:11PM ; [facility] Discussed concerns about exe rcise : promote physical activity Last Documented On 2 2:11PM ; [facility] Discussed current self-care methods/coping skills. ~Validated and normalized pt's feelings while assisting patient process recent events. ~Discussed ongoing counseling. ~Discussed lifestyle changes to address chronic illness. ~Supported patient's personal health goals ~wordfinds. walk, read, eat, enjoy my best friesnd Last Documented On 2 5:54PM ; [facility] Discussed nutritional needs teach healthy choices including fruits and vegetables Last Documented On 2 10:04AM ; [facility] Patient education about a pr oper diet Last Documented On 2 10:04AM ; [facility] Discussed concerns about exe rcise : promote physical activity Last Documented On 2 10:04AM ; [facility] Discussed nutritional needs teach healthy choices including fruits and vegetables Last Documented On 2 1:25PM ; [facility] Patient education about a pr oper diet Last Documented On 2 1:25PM ; [facility] Discussed concerns about exe rcise : promote physical activity Last Documented On 2 1:25PM ; [facility] Discussed nutritional needs teach healthy choices including fruits and vegetables Last Documented On 1 10:08AM ; [facility] Patient education about a pr oper diet Last Documented On 1 10:08AM ; [facility] Discussed concerns about exe rcise : promote physical activity Last Documented On 1 10:08AM ; [facility] Discussed nutritional needs teach healthy choices including fruits and vegetables Last Documented On 1 1:12PM ; [facility] Patient education about a pr oper diet Last Documented On 1 1:12PM ; [facility] Patient education about a pr oper diet Last Documented On 1 1:30PM ; [facility] Patient education about meal planning Last Documented On 1 1:30PM ; [facility] Education about changing eat ing habits Last Documented On 1 1:30PM ; [facility] Patient education about high fiber diet Last Documented On 1 1:30PM ; [facility] Patient education about low fat diet Last Documented On 1 1:30PM ; [facility] Patient education about low cholesterol diet Last Documented On 1 1:30PM ; [facility] Patient education about low carbohydrate diet Last Documented On 1 1:30PM ; [facility] Patient education about high protein diet Last Documented On 1 1:30PM ; [facility] Discussed concerns about exe rcise : promote physical activity Last Documented On 1 1:12PM ; [facility] Education/counseling conduct ed by pharmacist Last Documented On 0 1:39PM ; [facility] Vaccination counseling Last Documented On 0 1:39PM ; [facility] Discussed concerns about exe rcise : promote physical activity Last Documented On 0 2:16PM ; [facility] Patient goals decrease short ness of breath episodes Last Documented On 0 2:11PM ; [facility] Patient states that she uses her [...] recently Last Documented On 0 2:24PM ; [facility] Patient education about a pr oper diet Last Documented On 0 2:54PM ; [facility] Patient education about meal planning Last Documented On 0 2:54PM ; [facility] Education about changing eat ing habits Last Documented On 0 2:54PM ; [facility] Patient education about high fiber diet Last Documented On 0 2:54PM ; [facility] Patient education about low fat diet Last Documented On 0 2:54PM ; [facility] Patient education about low cholesterol diet Last Documented On 0 2:54PM ; [facility] Patient education about low carbohydrate diet Last Documented On 0 2:54PM ; [facility] Patient education about high protein diet Last Documented On 0 2:54PM ; [facility] Discussed nutritional needs teach healthy choices including fruits and vegetables Last Documented On 0 11:11AM ; [facility] Patient education about a pr oper diet Last Documented On 0 11:11AM ; [facility] Patient education about a pr oper diet Last Documented On 0 11:28AM ; [facility] Patient education about meal planning Last Documented On 0 11:28AM ; [facility] Education about changing eat ing habits Last Documented On 0 11:28AM ; [facility] Patient education about high fiber diet Last Documented On 0 11:28AM ; [facility] Patient education about low fat diet Last Documented On 0 11:28AM ; [facility] Patient education about low cholesterol diet Last Documented On 0 11:28AM ; [facility] Patient education about low carbohydrate diet Last Documented On 0 11:28AM ; [facility] Patient education about high protein diet Last Documented On 0 11:28AM ; [facility] Discussed concerns about exe rcise : promote physical activity Last Documented On 0 11:11AM ; [facility] Education/counseling conduct ed by pharmacist Last Documented On 0 1:41PM ; [facility] Patient states that she lonnie gonzalez [...] own Last Documented On 0 2:08PM ; [facility] Education/counseling conduct ed by pharmacist Last Documented On 9 1:12PM ; [facility] Patient states that she lonnie gonzalez has issues with her inhaler with the spacer. Patient did not bring in inhaler or spacer. Patient was told to bring in inhalers at next scheduled visit for pharmacist to assess inhalation technique. Patient is agreeable Last Documented On 9 1:13PM ; [facility] Patient goals Start using ch deon to help with inhaling dulera Last Documented On 9 2:40PM ; [facility] Patient states that she is g [...] vaccines Last Documented On 9 2:51PM ; [facility] Discussed nutritional needs teach healthy choices including fruits and vegetables Last Documented On 9 9:29AM ; [facility] Patient education about a pr oper diet Last Documented On 9 9:29AM ; [facility] Discussed concerns about exe rcise : promote physical activity Last Documented On 9 9:29AM ; [facility] Work Phone: [phone] Instructions Includes: Instructions for all patient encounters Instructions to patient Intervention and counseling on cessation of tobacco use, 3-10 minutes Discussed medication and nicotine replacement for tobacco cessation Last Documented On 3 8:54AM ; [facility] Intervention and counseling on cessation of tobacco use, 3-10 minutes Discussed medication and nicotine replacement for tobacco cessation Last Documented On 2 1:56PM ; [facility] Intervention and counseling on cessation of tobacco use, 3-10 minutes Last Documented On 0 2:07PM ; [facility] Return to the clinic if cond ition worsens or new symptoms arise Last Documented On 9 1:59PM ; [facility] Intervention and counseling on cessation of tobacco use, 3-10 minutes Last Documented On 9 10:39AM ; [facility] Education and Decision Aids were provided during visit for: Discussed nutritional needs teach healthy choices including fruits and vegetables Last Documented On 4 8:44AM ; [facility] Patient education about a pr oper diet Last Documented On 4 8:44AM ; [facility] Discussed concerns about exe rcise : promote physical activity Last Documented On 4 8:44AM ; [facility] Discussed nutritional needs teach healthy choices including fruits and vegetables Last Documented On 4 1:26PM ; [facility] Patient education about a pr oper diet Last Documented On 4 1:26PM ; [facility] Discussed concerns about exe rcise : promote physical activity Last Documented On 4 1:26PM ; [facility] Discussed nutritional needs teach healthy choices including fruits and vegetables Last Documented On 3 10:55AM ; [facility] Patient education about a pr oper diet Last Documented On 3 10:55AM ; [facility] Discussed concerns about exe rcise : promote physical activity Last Documented On 3 10:55AM ; [facility] Discussed nutritional needs teach healthy choices including fruits and vegetables Last Documented On 3 9:37AM ; [facility] Patient education about a pr oper diet Last Documented On 3 9:37AM ; [facility] Discussed concerns about exe rcise : promote physical activity Last Documented On 3 9:37AM ; [facility] Not requesting contraception Last Documented On 3 9:37AM ; [facility] Discussed nutritional needs teach healthy choices including fruits and vegetables Last Documented On 3 9:20AM ; [facility] Patient education about a pr oper diet Last Documented On 3 9:20AM ; [facility] Discussed concerns about exe rcise : promote physical activity Last Documented On 3 9:20AM ; [facility] Discussed nutritional needs teach healthy choices including fruits and vegetables Last Documented On 3 2:02PM ; [facility] Patient education about a pr oper diet Last Documented On 3 2:02PM ; [facility] Discussed concerns about exe rcise : promote physical activity Last Documented On 3 2:02PM ; [facility] Discussed nutritional needs teach healthy choices including fruits and vegetables Last Documented On 3 8:32AM ; [facility] Patient education about a pr oper diet Last Documented On 3 8:32AM ; [facility] Discussed concerns about exe rcise : promote physical activity Last Documented On 3 8:32AM ; [facility] Discussed nutritional needs teach healthy choices including fruits and vegetables Last Documented On 3 11:28AM ; [facility] Patient education about a pr oper diet Last Documented On 3 11:28AM ; [facility] Discussed concerns about exe rcise : promote physical activity Last Documented On 3 11:28AM ; [facility] Discussed nutritional needs teach healthy choices including fruits and vegetables Last Documented On 2 2:01PM ; [facility] Patient education about a pr oper diet Last Documented On 2 2:01PM ; [facility] Discussed concerns about exe rcise : promote physical activity Last Documented On 2 2:01PM ; [facility] Discussed nutritional needs teach healthy choices including fruits and vegetables Last Documented On 2 2:11PM ; [facility] Patient education about a pr oper diet Last Documented On 2 2:11PM ; [facility] Discussed concerns about exe rcise : promote physical activity Last Documented On 2 2:11PM ; [facility] Discussed current self-care methods/coping skills. ~Validated and normalized pt's feelings while assisting patient process recent events. ~Discussed ongoing counseling. ~Discussed lifestyle changes to address chronic illness. ~Supported patient's personal health goals ~wordfinds. walk, read, eat, enjoy my best friesnd Last Documented On 2 5:54PM ; [facility] Discussed nutritional needs teach healthy choices including fruits and vegetables Last Documented On 2 10:04AM ; [facility] Patient education about a pr oper diet Last Documented On 2 10:04AM ; [facility] Discussed concerns about exe rcise : promote physical activity Last Documented On 2 10:04AM ; [facility] Discussed nutritional needs teach healthy choices including fruits and vegetables Last Documented On 2 1:25PM ; [facility] Patient education about a pr oper diet Last Documented On 2 1:25PM ; [facility] Discussed concerns about exe rcise : promote physical activity Last Documented On 2 1:25PM ; [facility] Discussed nutritional needs teach healthy choices including fruits and vegetables Last Documented On 1 10:08AM ; [facility] Patient education about a pr oper diet Last Documented On 1 10:08AM ; [facility] Discussed concerns about exe rcise : promote physical activity Last Documented On 1 10:08AM ; [facility] Discussed nutritional needs teach healthy choices including fruits and vegetables Last Documented On 1 1:12PM ; [facility] Patient education about a pr oper diet Last Documented On 1 1:12PM ; [facility] Patient education about a pr oper diet Last Documented On 1 1:30PM ; [facility] Patient education about meal planning Last Documented On 1 1:30PM ; [facility] Education about changing eat ing habits Last Documented On 1 1:30PM ; [facility] Patient education about high fiber diet Last Documented On 1 1:30PM ; [facility] Patient education about low fat diet Last Documented On 1 1:30PM ; [facility] Patient education about low cholesterol diet Last Documented On 1 1:30PM ; [facility] Patient education about low carbohydrate diet Last Documented On 1 1:30PM ; [facility] Patient education about high protein diet Last Documented On 1 1:30PM ; [facility] Discussed concerns about exe rcise : promote physical activity Last Documented On 1 1:12PM ; [facility] Education/counseling conduct ed by pharmacist Last Documented On 0 1:39PM ; [facility] Vaccination counseling Last Documented On 0 1:39PM ; [facility] Discussed concerns about exe rcise : promote physical activity Last Documented On 0 2:16PM ; [facility] Patient goals decrease short ness of breath episodes Last Documented On 0 2:11PM ; [facility] Patient states that she uses her [...] recently Last Documented On 0 2:24PM ; [facility] Patient education about a pr oper diet Last Documented On 0 2:54PM ; [facility] Patient education about meal planning Last Documented On 0 2:54PM ; [facility] Education about changing eat ing habits Last Documented On 0 2:54PM ; [facility] Patient education about high fiber diet Last Documented On 0 2:54PM ; [facility] Patient education about low fat diet Last Documented On 0 2:54PM ; [facility] Patient education about low cholesterol diet Last Documented On 0 2:54PM ; [facility] Patient education about low carbohydrate diet Last Documented On 0 2:54PM ; [facility] Patient education about high protein diet Last Documented On 0 2:54PM ; [facility] Discussed nutritional needs teach healthy choices including fruits and vegetables Last Documented On 0 11:11AM ; [facility] Patient education about a pr oper diet Last Documented On 0 11:11AM ; [facility] Patient education about a pr oper diet Last Documented On 0 11:28AM ; [facility] Patient education about meal planning Last Documented On 0 11:28AM ; [facility] Education about changing eat ing habits Last Documented On 0 11:28AM ; [facility] Patient education about high fiber diet Last Documented On 0 11:28AM ; [facility] Patient education about low fat diet Last Documented On 0 11:28AM ; [facility] Patient education about low cholesterol diet Last Documented On 0 11:28AM ; [facility] Patient education about low carbohydrate diet Last Documented On 0 11:28AM ; [facility] Patient education about high protein diet Last Documented On 0 11:28AM ; [facility] Discussed concerns about exe rcise : promote physical activity Last Documented On 0 11:11AM ; [facility] Education/counseling conduct ed by pharmacist Last Documented On 0 1:41PM ; [facility] Patient states that she lonnie gonzalez [...] own Last Documented On 0 2:08PM ; [facility] Education/counseling conduct ed by pharmacist Last Documented On 9 1:12PM ; [facility] Patient states that she lonnie gonzalez has issues with her inhaler with the spacer. Patient did not bring in inhaler or spacer. Patient was told to bring in inhalers at next scheduled visit for pharmacist to assess inhalation technique. Patient is agreeable Last Documented On 9 1:13PM ; [facility] Patient goals Start using ch deon to help with inhaling dulera Last Documented On 9 2:40PM ; [facility] Patient states that she is g [...] vaccines Last Documented On 9 2:51PM ; [facility] Discussed nutritional needs teach healthy choices including fruits and vegetables Last Documented On 9 9:29AM ; [facility] Patient education about a pr oper diet Last Documented On 9 9:29AM ; [facility] Discussed concerns about exe rcise : promote physical activity Last Documented On 9 9:29AM ; [facility] Work Phone: 1(494) 938-473811-21-2024 Hospital Discharge instructions* Discharge Instructions* Jann Rust [...] [facility]* Discharge Instructions* Jesus [...] been provided. [facility] History of Present illness Narrative* Chago Spangler - 04/23/2024 2:38 PM EST SPIRITUAL [facility] [place]Trauma Note PATIENT NAME: Gail Almeida Shift date: 04/23/2024 Shift day: Shift # 1 Room # Name: Gail Almeida Age: 68 y.o. Gender: female Islam: [facility] [place] [employer]: Trauma/Incident type: Stroke Alert Admit Date & Time: 04/23/2024 1:20 PM TRAUMA NAME: None PATIENT/EVENT DESCRIPTION: Gail Almeida is a 68 y.o. female who arrived ED via ground ambulance as stroke alert. Patient kevin admitted to Patient was conscious and responsive when confectionery laboratory manager visited. SPIRITUAL [id number]: Patient was raised Worship and very receptive to spiritual care. Patient declined anointing of thesick. Family was not present at the time. Ad[employer] Dispatch Clerks Supervisor called patient's emergency contact center team lead and legal guardian, Alma Louis, at [phone] and left a message. Patient said she would like to have someone notified. Ad[employer] Dis[employer] Clerks Supervisor provided ministry of presence, offered support, and prayed with patient. Patient expressed appreciation for the blessing she received. PATIENT BELONGINGS: This confectionery laboratory manager did not handle patient's belongings. ANY BELONGINGS OF SIGNIFICANT VALUE NOTED: Unknown REGISTRATION STAFF NOTIFIED? Yes WHAT IS YOUR SPIRITUAL CARE PLAN FOR THIS PATIENT?: Follow up visits recommended for ongoing assessment of patient's condition and for more prayers andsupport. . [facility] [phone] [facility] Telephone encounter Note* Telephone Encounter - Rekha Ng - 03/16/2024 10:49 AM EDT Received no call back per [employer] [facility] re: rs'ing or confirmation on OP PT needed. [facility] [id number] Miscellaneous Notes* Telephone Encounter - Rekha Ng - 03/16/2024 10:49 AM EDT Received no call back per [employer] re: rs'ing or confirmation on OP PT needed. * Telephone Encounter - Rekha Ng - 03/05/2024 4:44 PM EDT CALL TO NOTE that pending their call back on guarenteed PT Eval time /day is needed to rs, per Pratik documented in this [facility]10-03-2024 Telephone encounter Note* Telephone Encounter - Rekha Ng - 03/05/2024 4:44 PM EDT CALL TO NOTE that pending their call back on guarenteed PT Eval time /day is needed to rs, per Pratik [facility] [id number] History of Present illness Narrative* MILLA Minaya - 02/25/2024 1:30 PM EDT Images from the original note were not included. Reason for Appointment: EMG Patient: Gail Almeida : 1955 EMG Computer: [employer] Referring Physician: Dr. Lucy Gilbert EMG: BLE hot walker: Cody Lauren RT(R) Office Location: [place] Reason for EMG: c/o soreness in bilateral posterior lower legs, low back pain. No hx of DM. Not on blood thinners. Comments: Procedure was explained to the patient who expressed understanding. Patient appeared to have tolerated the test well despite some discomfort due to the nature of the test. documented in this encounterFreeman Cancer [id number] History of Present illness Narrative* Lucy Gilbert, [...] Past Medical History: Diagnosis Date Arthritis Asthma ([facility]) Bipolar disorder ([facility] COPD (chronic obstructive pulmonary disease) ([facility]) Diabetes ([facility]) Localized swelling, mass or lump of neck NH (myocardial infarction) ([facility]) 03/2021 Ovarian cancer ([facility]) Parkinson disease ([facility]) Pharyngoesophageal dysphagia Schizophrenia ([facility]) Thyromegaly ([facility]) Past Surgical History: Procedure Laterality Date DILATION [...] reflexes are 2+ and symmetric throughout. Coordination: [id number] testing and rapid alternating movements are normal [...] and determine type and severity. Psychiatric disturbance [place] use Patient does have some subtle signs [...] of mental health issues documented in this encounterFreeman Cancer [id number] Instructions Includes: Instructions for all patient encounters Instructions to patient Intervention and counseling on cessation of tobacco use, 3-10 minutes Discussed medication and nicotine replacement for tobacco cessation Last Documented On 3 8:54AM ; [facility] Intervention and counseling on cessation of tobacco use, 3-10 minutes Discussed medication and nicotine replacement for tobacco cessation Last Documented On 2 1:56PM ; [facility] Intervention and counseling on cessation of tobacco use, 3-10 minutes Last Documented On 0 2:07PM ; [facility] Return to the clinic if cond ition worsens or new symptoms arise Last Documented On 9 1:59PM ; [facility] Intervention and counseling on cessation of tobacco use, 3-10 minutes Last Documented On 9 10:39AM ; [facility] Education and Decision Aids were provided during visit for: Discussed nutritional needs teach healthy choices including fruits and vegetables Last Documented On 4 8:44AM ; [facility] Patient education about a pr oper diet Last Documented On 4 8:44AM ; [facility] Discussed concerns about exe rcise : promote physical activity Last Documented On 4 8:44AM ; [facility] Discussed nutritional needs teach healthy choices including fruits and vegetables Last Documented On 4 1:26PM ; [facility] Patient education about a pr oper diet Last Documented On 4 1:26PM ; [facility] Discussed concerns about exe rcise : promote physical activity Last Documented On 4 1:26PM ; [facility] Discussed nutritional needs teach healthy choices including fruits and vegetables Last Documented On 3 10:55AM ; [facility] Patient education about a pr oper diet Last Documented On 3 10:55AM ; [facility] Discussed concerns about exe rcise : promote physical activity Last Documented On 3 10:55AM ; [facility] Discussed nutritional needs teach healthy choices including fruits and vegetables Last Documented On 3 9:37AM ; [facility] Patient education about a pr oper diet Last Documented On 3 9:37AM ; [facility] Discussed concerns about exe rcise : promote physical activity Last Documented On 3 9:37AM ; [facility] Not requesting contraception Last Documented On 3 9:37AM ; [facility] Discussed nutritional needs teach healthy choices including fruits and vegetables Last Documented On 3 9:20AM ; [facility] Patient education about a pr oper diet Last Documented On 3 9:20AM ; [facility] Discussed concerns about exe rcise : promote physical activity Last Documented On 3 9:20AM ; [facility] Discussed nutritional needs teach healthy choices including fruits and vegetables Last Documented On 3 2:02PM ; [facility] Patient education about a pr oper diet Last Documented On 3 2:02PM ; [facility] Discussed concerns about exe rcise : promote physical activity Last Documented On 3 2:02PM ; [facility] Discussed nutritional needs teach healthy choices including fruits and vegetables Last Documented On 3 8:32AM ; [facility] Patient education about a pr oper diet Last Documented On 3 8:32AM ; [facility] Discussed concerns about exe rcise : promote physical activity Last Documented On 3 8:32AM ; [facility] Discussed nutritional needs teach healthy choices including fruits and vegetables Last Documented On 3 11:28AM ; [facility] Patient education about a pr oper diet Last Documented On 3 11:28AM ; [facility] Discussed concerns about exe rcise : promote physical activity Last Documented On 3 11:28AM ; [facility] Discussed nutritional needs teach healthy choices including fruits and vegetables Last Documented On 2 2:01PM ; [facility] Patient education about a pr oper diet Last Documented On 2 2:01PM ; [facility] Discussed concerns about exe rcise : promote physical activity Last Documented On 2 2:01PM ; [facility] Discussed nutritional needs teach healthy choices including fruits and vegetables Last Documented On 2 2:11PM ; [facility] Patient education about a pr oper diet Last Documented On 2 2:11PM ; [facility] Discussed concerns about exe rcise : promote physical activity Last Documented On 2 2:11PM ; [facility] Discussed current self-care methods/coping skills. ~Validated and normalized pt's feelings while assisting patient process recent events. ~Discussed ongoing counseling. ~Discussed lifestyle changes to address chronic illness. ~Supported patient's personal health goals ~wordfinds. walk, read, eat, enjoy my best friesnd Last Documented On 2 5:54PM ; [facility] Discussed nutritional needs teach healthy choices including fruits and vegetables Last Documented On 2 10:04AM ; [facility] Patient education about a pr oper diet Last Documented On 2 10:04AM ; [facility] Discussed concerns about exe rcise : promote physical activity Last Documented On 2 10:04AM ; [facility] Discussed nutritional needs teach healthy choices including fruits and vegetables Last Documented On 2 1:25PM ; [facility] Patient education about a pr oper diet Last Documented On 2 1:25PM ; [facility] Discussed concerns about exe rcise : promote physical activity Last Documented On 2 1:25PM ; [facility] Discussed nutritional needs teach healthy choices including fruits and vegetables Last Documented On 1 10:08AM ; [facility] Patient education about a pr oper diet Last Documented On 1 10:08AM ; [facility] [facility]ed concerns about exe rcise : promote physical activity Last Documented On 1 10:08AM ; [facility] Discussed nutritional needs teach healthy choices including fruits and vegetables Last Documented On 1 1:12PM ; [facility] Patient education about a pr oper diet Last Documented On 1 1:12PM ; [facility] Patient education about a pr oper diet Last Documented On 1 1:30PM ; [facility] Patient education about meal planning Last Documented On 1 1:30PM ; [facility] Education about changing eat ing habits Last Documented On 1 1:30PM ; [facility] Patient education about high fiber diet Last Documented On 1 1:30PM ; [facility] Patient education about low fat diet Last Documented On 1 1:30PM ; [facility] Patient education about low cholesterol diet Last Documented On 1 1:30PM ; [facility] Patient education about low carbohydrate diet Last Documented On 1 1:30PM ; [facility] Patient education about high protein diet Last Documented On 1 1:30PM ; [facility] Discussed concerns about exe rcise : promote physical activity Last Documented On 1 1:12PM ; [facility] Education/counseling conduct ed by pharmacist Last Documented On 0 1:39PM ; [facility] Vaccination counseling Last Documented On 0 1:39PM ; [facility] Discussed concerns about exe rcise : promote physical activity Last Documented On 0 2:16PM ; [facility] Patient goals decrease short ness of breath episodes Last Documented On 0 2:11PM ; [facility] Patient states that she uses her [...] recently Last Documented On 0 2:24PM ; [facility] Patient education about a pr oper diet Last Documented On 0 2:54PM ; [facility] Patient education about meal planning Last Documented On 0 2:54PM ; [facility] Education about changing eat ing habits Last Documented On 0 2:54PM ; [facility] Patient education about high fiber diet Last Documented On 0 2:54PM ; [facility] Patient education about low fat diet Last Documented On 0 2:54PM ; [facility] Patient education about low cholesterol diet Last Documented On 0 2:54PM ; [facility] Patient education about low carbohydrate diet Last Documented On 0 2:54PM ; [facility] Patient education about high protein diet Last Documented On 0 2:54PM ; [facility] Discussed nutritional needs teach healthy choices including fruits and vegetables Last Documented On 0 11:11AM ; [facility] Patient education about a pr oper diet Last Documented On 0 11:11AM ; [facility] Patient education about a pr oper diet Last Documented On 0 11:28AM ; [facility] Patient education about meal planning Last Documented On 0 11:28AM ; [facility] Education about changing eat ing habits Last Documented On 0 11:28AM ; [facility] Patient education about high fiber diet Last Documented On 0 11:28AM ; [facility] Patient education about low fat diet Last Documented On 0 11:28AM ; [facility] Patient education about low cholesterol diet Last Documented On 0 11:28AM ; [facility] Patient education about low carbohydrate diet Last Documented On 0 11:28AM ; [facility] Patient education about high protein diet Last Documented On 0 11:28AM ; [facility] Discussed concerns about exe rcise : promote physical activity Last Documented On 0 11:11AM ; [facility] Education/counseling conduct ed by pharmacist Last Documented On 0 1:41PM ; [facility] Patient states that she lonnie gonzalez [...] own Last Documented On 0 2:08PM ; [facility] Education/counseling conduct ed by pharmacist Last Documented On 9 1:12PM ; [facility] Patient states that she lonnie gonzalez has issues with her inhaler with the spacer. Patient did not bring in inhaler or spacer. Patient was told to bring in inhalers at next scheduled visit for pharmacist to assess inhalation technique. Patient is agreeable Last Documented On 9 1:13PM ; [facility] Patient goals Start using ch deon to help with inhaling dulera Last Documented On 9 2:40PM ; [facility] Patient states that she is g [...] vaccines Last Documented On 9 2:51PM ; [facility] Discussed nutritional needs teach healthy choices including fruits and vegetables Last Documented On 9 9:29AM ; [facility] Patient education about a pr oper diet Last Documented On 9 9:29AM ; [facility] Discussed concerns about exe rcise : promote physical activity Last Documented On 9 9:29AM ; [facility] Work Phone: 1(396) 215-422408-26-2024 Evaluation note Includes: Assessments for all patient encounters Findings Encounter Date [Z68.25 - Body mass index [B NH] 25.0-25.9, adult] assessment of body mass index Medical Established Patient with Vida Culp [facility] 01/27/2024 Last Documented On 4 9:12AM ; [facility] Bipolar disorder NOS Medical Established Patient with Vida Culp [facility] 01/27/2024 Last Documented On 4 9:12AM ; [facility] Chronic obstructive pulmonary disease Me dical Established Patient with Vida Culp [facility] 01/27/2024 Last Documented On 4 9:12AM ; [facility] Disturbance of gait Medical Established Patient with Vida Culp [facility] 01/27/2024 Last Documented On 4 9:12AM ; [facility] Tremor Medical Established Patient with Vida Culp [facility] 01/27/2024 Last Documented On 4 9:12AM ; [facility] Visit for: screening for depression Medi [facility] Established Patient with Vida Culp [facility] 01/27/2024 Last Documented On 4 9:12AM ; [facility] [R26.89 - Other abnormalitie s of gait and mobility] staggering gait Chart Update with Karla Clark [facility] 11/15/2023 Last Documented On 4 12:07PM ; [facility] [F17.210 - Nicotine dependen ce, cigarettes, uncomplicated] continuous dependence on cigarette smoking Medical Established Patient with Karla Clark [facility] 10/04/2023 Last Documented On 4 6:30PM ; [facility] [Z12.11 - Encounter for scre ening for malignant neoplasm of colon] Colon screening Medical Established Patient with Karla Clark [facility] 10/04/2023 Last Documented On 4 6:30PM ; [facility] [Z68.25 - Body mass index [B NH] 25.0-25.9, adult] assessment of body mass index Medical Established Patient with Karla Clark [facility] 10/04/2023 Last Documented On 4 6:30PM ; [facility] Diabetes Risk Test Score was five score 10/04/2023 Medical Established Patient with Karla Clark [facility] 10/04/2023 Last Documented On 4 6:30PM ; [facility] Encounter for Immunization Medical Estab lished Patient with Karla Clark [facility] 10/04/2023 Last Documented On 4 6:30PM ; [facility] [D48.5 - Neoplasm of uncerta in behavior of skin] skin neoplasm of uncertain behavior Medical Established Patient with Karla Clark [facility] 05/22/2023 Last Documented On 3 1:30PM ; [facility] [Z68.24 - Body mass index [B NH] 24.0-24.9, adult] assessment of body mass index Medical Established Patient with Karla Clark [facility] 05/22/2023 Last Documented On 3 1:30PM ; [facility] Assessment of tobacco use Medical Establ ished Patient with Karla Clark [facility] 05/22/2023 Last Documented On 3 1:30PM ; [facility] [R30.0 - Dysuria] Dysuria Chart Update with Gary Clark [facility] 03/21/2023 Last Documented On 3 11:27AM ; [facility] [Z12.39 - Encounter for othe r screening for malignant neoplasm of breast] visit for: screening for malignant breast neoplasm Medical Established Patient with Aaron Whitaker [facility] 02/28/2023 Last Documented On 3 9:51AM ; [facility] [Z68.24 - Body mass index [B NH] 24.0-24.9, adult] assessment of body mass index Medical Established Patient with Aaron Whitaker CLINICAL PHARMACY TECHNICIAN 02/28/2023 Last Documented On 3 9:51AM ; [facility] Assessment of tobacco use Medical Establ ished Patient with Aaron Whitaker CLINICAL PHARMACY TECHNICIAN 02/28/2023 Last Documented On 3 9:51AM ; [facility] Chronic obstructive pulmonary disease Me dical Established Patient with Aaron Whitaker CLINICAL PHARMACY TECHNICIAN 02/28/2023 Last Documented On 3 9:51AM ; [facility] [J20.9 - Acute bronchitis, unspecified] acute bronchitis Medical Established Patient with Karla Clark CLINICAL PHARMACY TECHNICIAN 11/19/2022 Last Documented On 3 10:15AM ; [facility] [M79.621 - Pain in right upp er arm] pain in upper arm Medical Established Patient with Karla Clark CLINICAL PHARMACY TECHNICIAN 11/19/2022 Last Documented On 3 10:15AM ; [facility] [Z68.23 - Body mass index [B NH] 23.0-23.9, adult] assessment of body mass index Medical Established Patient with Karla Clark CLINICAL PHARMACY TECHNICIAN 11/19/2022 Last Documented On 3 10:15AM ; [facility] [M79.601 - Pain in right arm ] pain in right arm Medical Established Patient with Karla Clark CLINICAL PHARMACY TECHNICIAN 09/18/2022 Last Documented On 3 2:33PM ; [facility] [Z68.24 - Body mass index [B NH] 24.0-24.9, adult] assessment of body mass index Medical Established Patient with Karla Clark CLINICAL PHARMACY TECHNICIAN 09/18/2022 Last Documented On 3 2:33PM ; [facility] Assessment of tobacco use Medical Establ ished Patient with Karla Clark CLINICAL PHARMACY TECHNICIAN 09/18/2022 Last Documented On 3 2:33PM ; [facility] [M25.569 - Pain in unspecifi ed knee] arthralgia of knee / patella / tibia / fibula Medical Established Patient with Karla Clark CLINICAL PHARMACY TECHNICIAN 08/27/2022 Last Documented On 3 9:20AM ; [facility] [Z68.24 - Body mass index [B NH] 24.0-24.9, adult] assessment of body mass index Medical Established Patient with Karla Clark CLINICAL PHARMACY TECHNICIAN 08/27/2022 Last Documented On 3 9:20AM ; [facility] Intervention and counseling on cessation of tobacco use, 3-10 minutes Discussed medication and nicotine replacement for tobacco cessation Medical Established Patient with Karla Clark CLINICAL PHARMACY TECHNICIAN 08/27/2022 Last Documented On 3 9:20AM ; [facility] Nicotine dependence Medical Established Patient with Karla Clark CLINICAL PHARMACY TECHNICIAN 08/27/2022 Last Documented On 3 9:20AM ; [facility] Visit for routine adult H&P without abnormal findings Medical Established Patient with Karla Clark CLINICAL PHARMACY TECHNICIAN 08/27/2022 Last Documented On 3 9:20AM ; [facility] [H92.02 - Otalgia, left ear] earache Med ical Established Patient with Karla Clark CLINICAL PHARMACY TECHNICIAN 06/18/2022 Last Documented On 3 12:11PM ; [facility] [M79.604 - Pain in right leg ] pain in right leg Medical Established Patient with Karla Clark CLINICAL PHARMACY TECHNICIAN 06/18/2022 Last Documented On 3 12:11PM ; [facility] [Z68.24 - Body mass index [B NH] 24.0-24.9, adult] assessment of body mass index Medical Established Patient with Karla Clark CLINICAL PHARMACY TECHNICIAN 06/18/2022 Last Documented On 3 12:11PM ; [facility] Assessment of tobacco use Medical Establ ished Patient with Karla Clark CLINICAL PHARMACY TECHNICIAN 06/18/2022 Last Documented On 3 12:11PM ; [facility] Diabetes Risk Test Score was four score 06/18/2022 Medical Established Patient with Karla Clark CLINICAL PHARMACY TECHNICIAN 06/18/2022 Last Documented On 3 12:11PM ; [facility] Schizoaffective disorder Established Patient with Yin Feliz LPCC-S 03/20/2022 Last Documented On 2 12:13AM ; [facility] No cough Medical Established Patient with Karla Amber CLINICAL PHARMACY TECHNICIAN 12/20/2021 Last Documented On 2 3:12PM ; [facility] Visit for: screening for hum an immunodeficiency virus Medical Established Patient with Karla Amber CLINICAL PHARMACY TECHNICIAN 12/20/2021 Last Documented On 2 3:12PM ; [facility] Z68.24 - Body mass index [BM I] 24.0-24.9, adult Medical Established Patient with Karla Amber CLINICAL PHARMACY TECHNICIAN 12/20/2021 Last Documented On 2 3:12PM ; [facility] Bipolar disorder NOS Established Patient with Yin Feliz LPCC-S 11/03/2021 Last Documented On 2 7:00PM ; [facility] Bipolar schizoaffective disorder BH Esta blished Patient with Yin Feliz LPCC-S 11/03/2021 Last Documented On 2 7:00PM ; [facility] PLAN Medical Established Patient with Don Pino MD 11/03/2021 Last Documented On 2 10:40AM ; [facility] Abnormal electrocardiogram Medical Estab lished Patient with Don Pino MD 11/03/2021 Last Documented On 2 10:40AM ; [facility] Z68.24 - Body mass index [BM I] 24.0-24.9, adult Medical Established Patient with Don Pino MD 11/03/2021 Last Documented On 2 10:40AM ; [facility] Cough Medical Established Patient with Karlajulius Floresen CLINICAL PHARMACY TECHNICIAN 07/28/2021 Last Documented On 2 2:01PM ; [facility] Intervention and counseling on cessation of tobacco use, 3-10 minutes Discussed medication and nicotine replacement for tobacco cessation Medical Established Patient with Karla Amber CLINICAL PHARMACY TECHNICIAN 07/28/2021 Last Documented On 2 2:01PM ; [facility] Nicotine dependence Medical Established Patient with Karla Amber CLINICAL PHARMACY TECHNICIAN 07/28/2021 Last Documented On 2 2:01PM ; [facility] Z68.24 - Body mass index [BM I] 24.0-24.9, adult Medical Established Patient with Karla Amber CLINICAL PHARMACY TECHNICIAN 07/28/2021 Last Documented On 2 2:01PM ; [facility] Assess Colon screening Medical Established Patie nt with Karla Amber CLINICAL PHARMACY TECHNICIAN 05/08/2021 Last Documented On 1 10:59AM ; [facility] Diabetes Risk Test Score was four score 05/08/2021 Medical Established Patient with Karla Amber CLINICAL PHARMACY TECHNICIAN 05/08/2021 Last Documented On 1 10:59AM ; [facility] Routine adult history and ph ysical (18-64 yrs) without abnormal findings Medical Established Patient with Karla Amber CLINICAL PHARMACY TECHNICIAN 05/08/2021 Last Documented On 1 10:59AM ; [facility] Z68.24 - Body mass index [BM I] 24.0-24.9, adult Medical Established Patient with Karla Amber CLINICAL PHARMACY TECHNICIAN 05/08/2021 Last Documented On 1 10:59AM ; [facility] Z68.24 - Body mass index [BM I] 24.0-24.9, adult Medical Established Patient with Karla Amber CLINICAL PHARMACY TECHNICIAN 06/17/2020 Last Documented On 1 10:30AM ; [facility] Overweight Medical Established Patient with Karla Amber CLINICAL PHARMACY TECHNICIAN 06/06/2020 Last Documented On 1 2:06PM ; [facility] Z68.25 - Body mass index [BM I] 25.0-25.9, adult Medical Established Patient with Karla Amber CLINICAL PHARMACY TECHNICIAN 06/06/2020 Last Documented On 1 2:06PM ; [facility] Antiasthmatics [facility] Asthma Clinic-New with Karla Amber CLINICAL PHARMACY TECHNICIAN 05/06/2020 Last Documented On 0 7:27PM ; [facility] Assessment of tobacco use [facility]-New with Karla Amber CLINICAL PHARMACY TECHNICIAN 05/06/2020 Last Documented On 0 7:27PM ; [facility] Body mass index [facility]-New with Karla Amber CLINICAL PHARMACY TECHNICIAN 05/06/2020 Last Documented On 0 7:27PM ; [facility] Chronic obstructive pulmonary disease CP S [facility] with Karlajulius Floresen CLINICAL PHARMACY TECHNICIAN 05/06/2020 Last Documented On 0 7:27PM ; [facility] Overweight CPS [facility] with Karla Floresen CLINICAL PHARMACY TECHNICIAN 05/06/2020 Last Documented On 0 7:27PM ; [facility] Z11.4 - Encounter for screen ing for human immunodeficiency virus [HIV] CPS [facility] with Karla Floresen CLINICAL PHARMACY TECHNICIAN 05/06/2020 Last Documented On 0 7:27PM ; [facility] Diabetes Risk Test Score was three score 03/31/2020 Medical Established Patient with Karla Floresen CLINICAL PHARMACY TECHNICIAN 03/31/2020 Last Documented On 0 3:22PM ; [facility] Overweight Medical Established Patient with Karlajulius Floresen CLINICAL PHARMACY TECHNICIAN 03/31/2020 Last Documented On 0 3:22PM ; [facility] Z68.25 - Body mass index [BM I] 25.0-25.9, adult Medical Established Patient with Karla Clark CLINICAL PHARMACY TECHNICIAN 03/31/2020 Last Documented On 0 3:22PM ; [facility] Encounter for Immunization Nurse Visit with Gary Clark CLINICAL PHARMACY TECHNICIAN 03/14/2020 Last Documented On 0 5:11PM ; [facility] Body mass index Medical Established Patient with Karla Floresen CLINICAL PHARMACY TECHNICIAN 02/26/2020 Last Documented On 0 1:18PM ; [facility] Overweight Medical Established Patient with Karla Amber CLINICAL PHARMACY TECHNICIAN 02/26/2020 Last Documented On 0 1:18PM ; [facility] Overweight Medical Established Patient with Karla Floresen CLINICAL PHARMACY TECHNICIAN 07/23/2019 Last Documented On 0 2:33PM ; [facility] Z68.27 - Body mass index (BM I) 27.0-27.9, adult Medical Established Patient with Karla Floresen CLINICAL PHARMACY TECHNICIAN 07/23/2019 Last Documented On 0 2:33PM ; [facility] Occasional asthma CPS- [facility]hma Clinic- F/U with A french Clark CLINICAL PHARMACY TECHNICIAN 06/05/2019 Last Documented On 0 7:04PM ; [facility] Overweight CPS- [facility]- F/U with Aim julius Clark CLINICAL PHARMACY TECHNICIAN 06/05/2019 Last Documented On 0 7:04PM ; [facility] Z68.27 - Body mass index (BM I) 27.0-27.9 adult CPS- [facility]- F/U with Karla Clark CLINICAL PHARMACY TECHNICIAN 06/05/2019 Last Documented On 0 7:04PM ; [facility] Occasional asthma CPS Med Review with Karlajulius dinh CLINICAL PHARMACY TECHNICIAN 04/23/2019 Last Documented On 9 4:01PM ; [facility] Overweight CPS Med Review with Karlajulius Clark CLINICAL PHARMACY TECHNICIAN 04/23/2019 Last Documented On 9 4:01PM ; [facility] Z68.27 - Body mass index (BM I) 27.0-27.9 adult CPS Med Review with Karla Floresen CLINICAL PHARMACY TECHNICIAN 04/23/2019 Last Documented On 9 4:01PM ; [facility] Acute pharyngitis Medical Established Patient wi th Brandy Serranoer CLINICAL PHARMACY TECHNICIAN 04/15/2019 Last Documented On 9 12:31PM ; [facility] Asthmatic bronchitis with ac [place] exacerbation Medical Established Patient with Brandy Warren CLINICAL PHARMACY TECHNICIAN 04/15/2019 Last Documented On 9 12:31PM ; [facility] Fagerstrom Score was two Medical Established Pat ient with Brandy Warren CLINICAL PHARMACY TECHNICIAN 04/15/2019 Last Documented On 9 12:31PM ; [facility] PHQ-9: total score was three 04/15/2019 Medical Established Patient with Brandy Warren CLINICAL PHARMACY TECHNICIAN 04/15/2019 Last Documented On 9 12:31PM ; [facility] Body mass index Medical Established Patient with Karlajulius Floresen CLINICAL PHARMACY TECHNICIAN 03/05/2019 Last Documented On 9 10:27AM ; [facility] Diabetes Risk Test Score was three score Medical Established Patient with Karla Amber CLINICAL PHARMACY TECHNICIAN 03/05/2019 Last Documented On 9 10:27AM ; [facility] Overweight Medical Established Patient with Karla Amber CLINICAL PHARMACY TECHNICIAN 03/05/2019 Last Documented On 9 10:27AM ; [facility] Z68.28 - Body mass index (BM I) 28.0-28.9, adult Medical Established Patient with Karla Amber CLINICAL PHARMACY TECHNICIAN 12/22/2018 Last Documented On 9 10:32AM ; [facility] Assess routine adult history and physical (18 - 64 yrs) Medical Established Patient with Karla Amber CLINICAL PHARMACY TECHNICIAN 11/06/2018 Last Documented On 9 2:26PM ; [facility] Overweight Medical Established Patient with Karla Amber CLINICAL PHARMACY TECHNICIAN 11/06/2018 Last Documented On 9 2:26PM ; [facility] Z68.28 - Body mass index (BM I) 28.0-28.9, adult Medical Established Patient with Karla Amber CLINICAL PHARMACY TECHNICIAN 11/06/2018 Last Documented On 9 2:26PM ; [facility] Assess dysphagia Medical Established Patient wit h Karla Amber CLINICAL PHARMACY TECHNICIAN 09/11/2018 Last Documented On 9 10:53AM ; [facility] Assess routine adult history and physical (18 - 64 yrs) Medical Established Patient with Karla Amber CLINICAL PHARMACY TECHNICIAN 09/11/2018 Last Documented On 9 10:53AM ; [facility] Assess primary insomnia with sleep apnea Medical Established Patient with Karla Amber CLINICAL PHARMACY TECHNICIAN 09/04/2018 Last Documented On 9 2:23PM ; [facility] Assess routine adult history and physical (18 - 64 yrs) Medical Established Patient with Karla Amber CLINICAL PHARMACY TECHNICIAN 09/04/2018 Last Documented On 9 2:23PM ; [facility] Overweight Medical Established Patient with Karla Amber CLINICAL PHARMACY TECHNICIAN 09/04/2018 Last Documented On 9 2:23PM ; [facility] Z68.29 - Body mass index (BM I) 29.0-29.9, adult Medical Established Patient with Karla Amber CLINICAL PHARMACY TECHNICIAN 09/04/2018 Last Documented On 9 2:23PM ; [facility] Assess vaginal candidiasis Medical Estab lished Patient with Karla Amber CLINICAL PHARMACY TECHNICIAN 07/31/2018 Last Documented On 9 2:12PM ; [facility] Work Phone: 1(461) 341-376808-26-2024 Evaluation note Includes: Assessments for all patient encounters Findings Encounter Date [Z68.25 - Body mass index [B NH] 25.0-25.9, adult] assessment of body mass index Medical Established Patient with Vida Culp CLINICAL PHARMACY TECHNICIAN 01/27/2024 Last Documented On 4 9:12AM ; [facility] Bipolar disorder NOS Medical Established Patient with Vida Culp [facility] 01/27/2024 Last Documented On 4 9:12AM ; [facility] Chronic obstructive pulmonary disease Me dical Established Patient with Vida Culp [facility] 01/27/2024 Last Documented On 4 9:12AM ; [facility] Disturbance of gait Medical Established Patient with Vida Culp [facility] 01/27/2024 Last Documented On 4 9:12AM ; [facility] Tremor Medical Established Patient with Vida Culp [facility] 01/27/2024 Last Documented On 4 9:12AM ; [facility] Visit for: screening for depression Medi [facility] Established Patient with Vida Culp [facility] 01/27/2024 Last Documented On 4 9:12AM ; [facility] [R26.89 - Other abnormalitie s of gait and mobility] staggering gait Chart Update with Karla Clark [facility] 11/15/2023 Last Documented On 4 12:07PM ; [facility] [F17.210 - Nicotine dependen ce, cigarettes, uncomplicated] continuous dependence on cigarette smoking Medical Established Patient with Karla Clark [facility] 10/04/2023 Last Documented On 4 6:30PM ; [facility] [Z12.11 - Encounter for scre ening for malignant neoplasm of colon] Colon screening Medical Established Patient with Karla Clark [facility] 10/04/2023 Last Documented On 4 6:30PM ; [facility] [Z68.25 - Body mass index [B NH] 25.0-25.9, adult] assessment of body mass index Medical Established Patient with Karla Clark [facility] 10/04/2023 Last Documented On 4 6:30PM ; [facility] Diabetes Risk Test Score was five score 10/04/2023 Medical Established Patient with Karla Clark CLINICAL PHARMACY TECHNICIAN 10/04/2023 Last Documented On 4 6:30PM ; [facility] Encounter for Immunization Medical Estab lished Patient with Karla Clark CLINICAL PHARMACY TECHNICIAN 10/04/2023 Last Documented On 4 6:30PM ; [facility] [D48.5 - Neoplasm of uncerta in behavior of skin] skin neoplasm of uncertain behavior Medical Established Patient with Karla Clark CLINICAL PHARMACY TECHNICIAN 05/22/2023 Last Documented On 3 1:30PM ; [facility] [Z68.24 - Body mass index [B NH] 24.0-24.9, adult] assessment of body mass index Medical Established Patient with Karla Clark CLINICAL PHARMACY TECHNICIAN 05/22/2023 Last Documented On 3 1:30PM ; [facility] Assessment of tobacco use Medical Establ ished Patient with Karla Clark CLINICAL PHARMACY TECHNICIAN 05/22/2023 Last Documented On 3 1:30PM ; [facility] [R30.0 - Dysuria] Dysuria Chart Update with Gary Clark CLINICAL PHARMACY TECHNICIAN 03/21/2023 Last Documented On 3 11:27AM ; [facility] [Z12.39 - Encounter for othe r screening for malignant neoplasm of breast] visit for: screening for malignant breast neoplasm Medical Established Patient with Aaron Whitaker CLINICAL PHARMACY TECHNICIAN 02/28/2023 Last Documented On 3 9:51AM ; [facility] [Z68.24 - Body mass index [B NH] 24.0-24.9, adult] assessment of body mass index Medical Established Patient with Aaron Garcia Penix CLINICAL PHARMACY TECHNICIAN 02/28/2023 Last Documented On 3 9:51AM ; [facility] Assessment of tobacco use Medical Establ ished Patient with Lina Penix CLINICAL PHARMACY TECHNICIAN 02/28/2023 Last Documented On 3 9:51AM ; [facility] Chronic obstructive pulmonary disease Me dical Established Patient with Lina Penix CLINICAL PHARMACY TECHNICIAN 02/28/2023 Last Documented On 3 9:51AM ; [facility] [J20.9 - Acute bronchitis, unspecified] acute bronchitis Medical Established Patient with Karla Clark CLINICAL PHARMACY TECHNICIAN 11/19/2022 Last Documented On 3 10:15AM ; [facility] [M79.621 - Pain in right upp er arm] pain in upper arm Medical Established Patient with Karla Clark CLINICAL PHARMACY TECHNICIAN 11/19/2022 Last Documented On 3 10:15AM ; [facility] [Z68.23 - Body mass index [B NH] 23.0-23.9, adult] assessment of body mass index Medical Established Patient with Karla Clark CLINICAL PHARMACY TECHNICIAN 11/19/2022 Last Documented On 3 10:15AM ; [facility] [M79.601 - Pain in right arm ] pain in right arm Medical Established Patient with Karla Clark CLINICAL PHARMACY TECHNICIAN 09/18/2022 Last Documented On 3 2:33PM ; [facility] [Z68.24 - Body mass index [B NH] 24.0-24.9, adult] assessment of body mass index Medical Established Patient with Karla Clark CLINICAL PHARMACY TECHNICIAN 09/18/2022 Last Documented On 3 2:33PM ; [facility] Assessment of tobacco use Medical Establ ished Patient with Karla Clark CLINICAL PHARMACY TECHNICIAN 09/18/2022 Last Documented On 3 2:33PM ; [facility] [M25.569 - Pain in unspecifi ed knee] arthralgia of knee / patella / tibia / fibula Medical Established Patient with Karla Clark CLINICAL PHARMACY TECHNICIAN 08/27/2022 Last Documented On 3 9:20AM ; [facility] [Z68.24 - Body mass index [B NH] 24.0-24.9, adult] assessment of body mass index Medical Established Patient with Karla Clark CLINICAL PHARMACY TECHNICIAN 08/27/2022 Last Documented On 3 9:20AM ; [facility] Intervention and counseling on cessation of tobacco use, 3-10 minutes Discussed medication and nicotine replacement for tobacco cessation Medical Established Patient with Karla Clark CLINICAL PHARMACY TECHNICIAN 08/27/2022 Last Documented On 3 9:20AM ; [facility] Nicotine dependence Medical Established Patient with Karla Amber CLINICAL PHARMACY TECHNICIAN 08/27/2022 Last Documented On 3 9:20AM ; [facility] Visit for routine adult H&P without abnormal findings Medical Established Patient with Karla Clark CLINICAL PHARMACY TECHNICIAN 08/27/2022 Last Documented On 3 9:20AM ; [facility] [H92.02 - Otalgia, left ear] earache Med ical Established Patient with Karla Clark CLINICAL PHARMACY TECHNICIAN 06/18/2022 Last Documented On 3 12:11PM ; [facility] [M79.604 - Pain in right leg ] pain in right leg Medical Established Patient with Karla Clark CLINICAL PHARMACY TECHNICIAN 06/18/2022 Last Documented On 3 12:11PM ; [facility] [Z68.24 - Body mass index [B NH] 24.0-24.9, adult] assessment of body mass index Medical Established Patient with Karla Clark CLINICAL PHARMACY TECHNICIAN 06/18/2022 Last Documented On 3 12:11PM ; [facility] Assessment of tobacco use Medical Establ ished Patient with Karla Clark CLINICAL PHARMACY TECHNICIAN 06/18/2022 Last Documented On 3 12:11PM ; [facility] Diabetes Risk Test Score was four score 06/18/2022 Medical Established Patient with Karla Clark CLINICAL PHARMACY TECHNICIAN 06/18/2022 Last Documented On 3 12:11PM ; [facility] Schizoaffective disorder Established Patient with Yin Feliz LPCC-S 03/20/2022 Last Documented On 2 12:13AM ; [facility] No cough Medical Established Patient with Karla Clark CLINICAL PHARMACY TECHNICIAN 12/20/2021 Last Documented On 2 3:12PM ; [facility] Visit for: screening for hum an immunodeficiency virus Medical Established Patient with Karla Clark CLINICAL PHARMACY TECHNICIAN 12/20/2021 Last Documented On 2 3:12PM ; [facility] Z68.24 - Body mass index [BM I] 24.0-24.9, adult Medical Established Patient with Karla Clark CLINICAL PHARMACY TECHNICIAN 12/20/2021 Last Documented On 2 3:12PM ; [facility] Bipolar disorder NOS BH Established Patient with Yin Feliz LPCC-S 11/03/2021 Last Documented On 2 7:00PM ; [facility] Bipolar schizoaffective disorder BH Esta blished Patient with Yin Boswells LPCC-S 11/03/2021 Last Documented On 2 7:00PM ; [facility] PLAN Medical Established Patient with Don Pino MD 11/03/2021 Last Documented On 2 10:40AM ; [facility] Abnormal electrocardiogram Medical Estab lished Patient with Don Pino MD 11/03/2021 Last Documented On 2 10:40AM ; [facility] Z68.24 - Body mass index [BM I] 24.0-24.9, adult Medical Established Patient with Don Pino MD 11/03/2021 Last Documented On 2 10:40AM ; [facility] Cough Medical Established Patient with Karla Amber CLINICAL PHARMACY TECHNICIAN 07/28/2021 Last Documented On 2 2:01PM ; [facility] Intervention and counseling on cessation of tobacco use, 3-10 minutes Discussed medication and nicotine replacement for tobacco cessation Medical Established Patient with Karla Amber CLINICAL PHARMACY TECHNICIAN 07/28/2021 Last Documented On 2 2:01PM ; [facility] Nicotine dependence Medical Established Patient with Karla Amber CLINICAL PHARMACY TECHNICIAN 07/28/2021 Last Documented On 2 2:01PM ; [facility] Z68.24 - Body mass index [BM I] 24.0-24.9, adult Medical Established Patient with Karla Amber CLINICAL PHARMACY TECHNICIAN 07/28/2021 Last Documented On 2 2:01PM ; [facility] Assess Colon screening Medical Established Patie nt with Karla Amber CLINICAL PHARMACY TECHNICIAN 05/08/2021 Last Documented On 1 10:59AM ; [facility] Diabetes Risk Test Score was four score 05/08/2021 Medical Established Patient with Karla Amber CLINICAL PHARMACY TECHNICIAN 05/08/2021 Last Documented On 1 10:59AM ; [facility] Routine adult history and ph ysical (18-64 yrs) without abnormal findings Medical Established Patient with Karla Amber CLINICAL PHARMACY TECHNICIAN 05/08/2021 Last Documented On 1 10:59AM ; [facility] Z68.24 - Body mass index [BM I] 24.0-24.9, adult Medical Established Patient with Karla Amber CLINICAL PHARMACY TECHNICIAN 05/08/2021 Last Documented On 1 10:59AM ; [facility] Z68.24 - Body mass index [BM I] 24.0-24.9, adult Medical Established Patient with Karla Amber CLINICAL PHARMACY TECHNICIAN 06/17/2020 Last Documented On 1 10:30AM ; [facility] Overweight Medical Established Patient with Karla Amber CLINICAL PHARMACY TECHNICIAN 06/06/2020 Last Documented On 1 2:06PM ; [facility] Z68.25 - Body mass index [BM I] 25.0-25.9, adult Medical Established Patient with Karla Amber CLINICAL PHARMACY TECHNICIAN 06/06/2020 Last Documented On 1 2:06PM ; [facility] Antiasthmatics [facility] Asthma Clinic-New with Karla Amber CLINICAL PHARMACY TECHNICIAN 05/06/2020 Last Documented On 0 7:27PM ; [facility] Assessment of tobacco use CPS [facility]-New with Karla Amber CLINICAL PHARMACY TECHNICIAN 05/06/2020 Last Documented On 0 7:27PM ; [facility] Body mass index [facility]-New with Karla Amber CLINICAL PHARMACY TECHNICIAN 05/06/2020 Last Documented On 0 7:27PM ; [facility] Chronic obstructive pulmonary disease CP S [facility]New with Karla Amber CLINICAL PHARMACY TECHNICIAN 05/06/2020 Last Documented On 0 7:27PM ; [facility] Overweight CPS [facility]-New with Karla Amber CLINICAL PHARMACY TECHNICIAN 05/06/2020 Last Documented On 0 7:27PM ; [facility] Z11.4 - Encounter for screen ing for human immunodeficiency virus [HIV] CPS [facility]New with Karla Amber CLINICAL PHARMACY TECHNICIAN 05/06/2020 Last Documented On 0 7:27PM ; [facility] Diabetes Risk Test Score was three score 03/31/2020 Medical Established Patient with Karla Amber CLINICAL PHARMACY TECHNICIAN 03/31/2020 Last Documented On 0 3:22PM ; [facility] Overweight Medical Established Patient with Karla Clark CLINICAL PHARMACY TECHNICIAN 03/31/2020 Last Documented On 0 3:22PM ; [facility] Z68.25 - Body mass index [BM I] 25.0-25.9, adult Medical Established Patient with Karla Clark CLINICAL PHARMACY TECHNICIAN 03/31/2020 Last Documented On 0 3:22PM ; [facility] Encounter for Immunization Nurse Visit with Gary Clark CLINICAL PHARMACY TECHNICIAN 03/14/2020 Last Documented On 0 5:11PM ; [facility] Body mass index Medical Established Patient with Karla Floresen CLINICAL PHARMACY TECHNICIAN 02/26/2020 Last Documented On 0 1:18PM ; [facility] Overweight Medical Established Patient with Karla Floresen CLINICAL PHARMACY TECHNICIAN 02/26/2020 Last Documented On 0 1:18PM ; [facility] Overweight Medical Established Patient with Karla Clark CLINICAL PHARMACY TECHNICIAN 07/23/2019 Last Documented On 0 2:33PM ; [facility] Z68.27 - Body mass index (BM I) 27.0-27.9, adult Medical Established Patient with Karla Clark CLINICAL PHARMACY TECHNICIAN 07/23/2019 Last Documented On 0 2:33PM ; [facility] Occasional asthma CPS- [facility] Clinic- F/U with A french Clark CLINICAL PHARMACY TECHNICIAN 06/05/2019 Last Documented On 0 7:04PM ; [facility] Overweight CPS- [facility]- F/U with Alta Clark CLINICAL PHARMACY TECHNICIAN 06/05/2019 Last Documented On 0 7:04PM ; [facility] Z68.27 - Body mass index (BM I) 27.0-27.9 adult CPS- [facility]- F/U with Karla Floresen CLINICAL PHARMACY TECHNICIAN 06/05/2019 Last Documented On 0 7:04PM ; [facility] Occasional asthma CPS Med Review with Karla Flores en CLINICAL PHARMACY TECHNICIAN 04/23/2019 Last Documented On 9 4:01PM ; [facility] Overweight CPS Med Review with Karla Floresen CLINICAL PHARMACY TECHNICIAN 04/23/2019 Last Documented On 9 4:01PM ; [facility] Z68.27 - Body mass index (BM I) 27.0-27.9 adult CPS Med Review with Karla Amber CLINICAL PHARMACY TECHNICIAN 04/23/2019 Last Documented On 9 4:01PM ; [facility] Acute pharyngitis Medical Established Patient wi th Brandy Kelley CLINICAL PHARMACY TECHNICIAN 04/15/2019 Last Documented On 9 12:31PM ; [facility] Asthmatic bronchitis with ac [place] exacerbation Medical Established Patient with Brandy Warren CLINICAL PHARMACY TECHNICIAN 04/15/2019 Last Documented On 9 12:31PM ; [facility] Fagerstrom Score was two Medical Established Pat ient with Brandy Warren CLINICAL PHARMACY TECHNICIAN 04/15/2019 Last Documented On 9 12:31PM ; [facility] PHQ-9: total score was three 04/15/2019 Medical Established Patient with Brandy Warren CLINICAL PHARMACY TECHNICIAN 04/15/2019 Last Documented On 9 12:31PM ; [facility] Body mass index Medical Established Patient with Karla Amber CLINICAL PHARMACY TECHNICIAN 03/05/2019 Last Documented On 9 10:27AM ; [facility] Diabetes Risk Test Score was three score Medical Established Patient with Karla Amber CLINICAL PHARMACY TECHNICIAN 03/05/2019 Last Documented On 9 10:27AM ; [facility] Overweight Medical Established Patient with Karla Amber CLINICAL PHARMACY TECHNICIAN 03/05/2019 Last Documented On 9 10:27AM ; [facility] Z68.28 - Body mass index (BM I) 28.0-28.9, adult Medical Established Patient with Karla Amber CLINICAL PHARMACY TECHNICIAN 12/22/2018 Last Documented On 9 10:32AM ; [facility] Assess routine adult history and physical (18 - 64 yrs) Medical Established Patient with Karla Amber CLINICAL PHARMACY TECHNICIAN 11/06/2018 Last Documented On 9 2:26PM ; [facility] Overweight Medical Established Patient with Karla Amber CLINICAL PHARMACY TECHNICIAN 11/06/2018 Last Documented On 9 2:26PM ; [facility] Z68.28 - Body mass index (BM I) 28.0-28.9, adult Medical Established Patient with Karla Amber CLINICAL PHARMACY TECHNICIAN 11/06/2018 Last Documented On 9 2:26PM ; [facility] Assess dysphagia Medical Established Patient wit h Karla Clark CLINICAL PHARMACY TECHNICIAN 09/11/2018 Last Documented On 9 10:53AM ; [facility] Assess routine adult history and physical (18 - 64 yrs) Medical Established Patient with Karla Clark CLINICAL PHARMACY TECHNICIAN 09/11/2018 Last Documented On 9 10:53AM ; [facility] Assess primary insomnia with sleep apnea Medical Established Patient with Karlajulius Clark CLINICAL PHARMACY TECHNICIAN 09/04/2018 Last Documented On 9 2:23PM ; [facility] Assess routine adult history and physical (18 - 64 yrs) Medical Established Patient with Karlajulius Clark CLINICAL PHARMACY TECHNICIAN 09/04/2018 Last Documented On 9 2:23PM ; [facility] Overweight Medical Established Patient with Karlajulius Clark CLINICAL PHARMACY TECHNICIAN 09/04/2018 Last Documented On 9 2:23PM ; [facility] Z68.29 - Body mass index (BM I) 29.0-29.9, adult Medical Established Patient with Karla Clark CLINICAL PHARMACY TECHNICIAN 09/04/2018 Last Documented On 9 2:23PM ; [facility] Assess vaginal candidiasis Medical Estab lished Patient with Karla Clark CLINICAL PHARMACY TECHNICIAN 07/31/2018 Last Documented On 9 2:12PM ; [facility] Work Phone: [phone]) 107-861708-26-2024 Evaluation note Includes: Assessments for all patient encounters Findings Encounter Date [Z68.25 - Body mass index [B NH] 25.0-25.9, adult] assessment of body mass index Medical Established Patient with Vida Fritz CLINICAL PHARMACY TECHNICIAN 01/27/2024 Last Documented On 4 9:12AM ; [facility] Bipolar disorder NOS Medical Established Patient with Vida Fritz CLINICAL PHARMACY TECHNICIAN 01/27/2024 Last Documented On 4 9:12AM ; [facility] Chronic obstructive pulmonary disease Me dical Established Patient with Vida Fritz CLINICAL PHARMACY TECHNICIAN 01/27/2024 Last Documented On 4 9:12AM ; [facility] Disturbance of gait Medical Established Patient with Vida Culp [facility] 01/27/2024 Last Documented On 4 9:12AM ; [facility] Tremor Medical Established Patient with Vida Culp [facility] 01/27/2024 Last Documented On 4 9:12AM ; [facility] Visit for: screening for depression Medi rl Established Patient with Vida Culp [facility] 01/27/2024 Last Documented On 4 9:12AM ; [facility] [R26.89 - Other abnormalitie s of gait and mobility] staggering gait Chart Update with Karla Clark [facility] 11/15/2023 Last Documented On 4 12:07PM ; [facility] [F17.210 - Nicotine dependen ce, cigarettes, uncomplicated] continuous dependence on cigarette smoking Medical Established Patient with Karla Clark [facility] 10/04/2023 Last Documented On 4 6:30PM ; [facility] [Z12.11 - Encounter for scre ening for malignant neoplasm of colon] Colon screening Medical Established Patient with Karla Clark [facility] 10/04/2023 Last Documented On 4 6:30PM ; [facility] [Z68.25 - Body mass index [B NH] 25.0-25.9, adult] assessment of body mass index Medical Established Patient with Karla Clark [facility] 10/04/2023 Last Documented On 4 6:30PM ; [facility] Diabetes Risk Test Score was five score 10/04/2023 Medical Established Patient with Karla Clark [facility] 10/04/2023 Last Documented On 4 6:30PM ; [facility] Encounter for Immunization Medical Estab lished Patient with Karla Clark [facility] 10/04/2023 Last Documented On 4 6:30PM ; [facility] [D48.5 - Neoplasm of uncerta in behavior of skin] skin neoplasm of uncertain behavior Medical Established Patient with Karla Clark [facility] 05/22/2023 Last Documented On 3 1:30PM ; [facility] [Z68.24 - Body mass index [B NH] 24.0-24.9, adult] assessment of body mass index Medical Established Patient with Karla Clark CLINICAL PHARMACY TECHNICIAN 05/22/2023 Last Documented On 3 1:30PM ; [facility] Assessment of tobacco use Medical Establ ished Patient with Karla Clark CLINICAL PHARMACY TECHNICIAN 05/22/2023 Last Documented On 3 1:30PM ; [facility] [R30.0 - Dysuria] Dysuria Chart Update with Gary Clark CLINICAL PHARMACY TECHNICIAN 03/21/2023 Last Documented On 3 11:27AM ; [facility] [Z12.39 - Encounter for othe r screening for malignant neoplasm of breast] visit for: screening for malignant breast neoplasm Medical Established Patient with Aaron Whitaker CLINICAL PHARMACY TECHNICIAN 02/28/2023 Last Documented On 3 9:51AM ; [facility] [Z68.24 - Body mass index [B NH] 24.0-24.9, adult] assessment of body mass index Medical Established Patient with Aaron Whitaker CLINICAL PHARMACY TECHNICIAN 02/28/2023 Last Documented On 3 9:51AM ; [facility] Assessment of tobacco use Medical Establ ished Patient with Aaron Whitaker CLINICAL PHARMACY TECHNICIAN 02/28/2023 Last Documented On 3 9:51AM ; [facility] Chronic obstructive pulmonary disease Me dical Established Patient with Aaron Whitaker CLINICAL PHARMACY TECHNICIAN 02/28/2023 Last Documented On 3 9:51AM ; [facility] [J20.9 - Acute bronchitis, unspecified] acute bronchitis Medical Established Patient with Karla Clark CLINICAL PHARMACY TECHNICIAN 11/19/2022 Last Documented On 3 10:15AM ; [facility] [M79.621 - Pain in right upp er arm] pain in upper arm Medical Established Patient with Karla Clark CLINICAL PHARMACY TECHNICIAN 11/19/2022 Last Documented On 3 10:15AM ; [facility] [Z68.23 - Body mass index [B NH] 23.0-23.9, adult] assessment of body mass index Medical Established Patient with Karla Clark CLINICAL PHARMACY TECHNICIAN 11/19/2022 Last Documented On 3 10:15AM ; [facility] [M79.601 - Pain in right arm ] pain in right arm Medical Established Patient with Karla Clark CLINICAL PHARMACY TECHNICIAN 09/18/2022 Last Documented On 3 2:33PM ; [facility] [Z68.24 - Body mass index [B NH] 24.0-24.9, adult] assessment of body mass index Medical Established Patient with Karla Clark CNP 09/18/2022 Last Documented On 3 2:33PM ; [facility] Assessment of tobacco use Medical Establ ished Patient with Karla Clark CLINICAL PHARMACY TECHNICIAN 09/18/2022 Last Documented On 3 2:33PM ; [facility] [M25.569 - Pain in unspecifi ed knee] arthralgia of knee / patella / tibia / fibula Medical Established Patient with Karla Clark CNP 08/27/2022 Last Documented On 3 9:20AM ; [facility] [Z68.24 - Body mass index [B NH] 24.0-24.9, adult] assessment of body mass index Medical Established Patient with Karla Clark CNP 08/27/2022 Last Documented On 3 9:20AM ; [facility] Intervention and counseling on cessation of tobacco use, 3-10 minutes Discussed medication and nicotine replacement for tobacco cessation Medical Established Patient with Karla Clark CNP 08/27/2022 Last Documented On 3 9:20AM ; [facility] Nicotine dependence Medical Established Patient with Karla Clark CNP 08/27/2022 Last Documented On 3 9:20AM ; [facility] Visit for routine adult H&P without abnormal findings Medical Established Patient with Karla Clark CNP 08/27/2022 Last Documented On 3 9:20AM ; [facility] [H92.02 - Otalgia, left ear] earache Med ical Established Patient with Karla Clark CLINICAL PHARMACY TECHNICIAN 06/18/2022 Last Documented On 3 12:11PM ; [facility] [M79.604 - Pain in right leg ] pain in right leg Medical Established Patient with Karla Clark CLINICAL PHARMACY TECHNICIAN 06/18/2022 Last Documented On 3 12:11PM ; [facility] [Z68.24 - Body mass index [B NH] 24.0-24.9, adult] assessment of body mass index Medical Established Patient with Karlajulius Clark CLINICAL PHARMACY TECHNICIAN 06/18/2022 Last Documented On 3 12:11PM ; [facility] Assessment of tobacco use Medical Establ ished Patient with Karla Amber CLINICAL PHARMACY TECHNICIAN 06/18/2022 Last Documented On 3 12:11PM ; [facility] Diabetes Risk Test Score was four score 06/18/2022 Medical Established Patient with Karla Amber CLINICAL PHARMACY TECHNICIAN 06/18/2022 Last Documented On 3 12:11PM ; [facility] Schizoaffective disorder Established Patient with Yin Feliz LPCC-S 03/20/2022 Last Documented On 2 12:13AM ; [facility] No cough Medical Established Patient with Karlajulius Floresen CLINICAL PHARMACY TECHNICIAN 12/20/2021 Last Documented On 2 3:12PM ; [facility] Visit for: screening for hum an immunodeficiency virus Medical Established Patient with Karla Amber CLINICAL PHARMACY TECHNICIAN 12/20/2021 Last Documented On 2 3:12PM ; [facility] Z68.24 - Body mass index [BM I] 24.0-24.9, adult Medical Established Patient with Karlajulius Floresen CLINICAL PHARMACY TECHNICIAN 12/20/2021 Last Documented On 2 3:12PM ; [facility] Bipolar disorder NOS BH Established Patient with Yin Feliz LPCC-S 11/03/2021 Last Documented On 2 7:00PM ; [facility] Bipolar schizoaffective disorder BH Esta blished Patient with Yin Feliz LPCC-S 11/03/2021 Last Documented On 2 7:00PM ; [facility] PLAN Medical Established Patient with Don Pino MD 11/03/2021 Last Documented On 2 10:40AM ; [facility] Abnormal electrocardiogram Medical Estab lished Patient with Don Pino MD 11/03/2021 Last Documented On 2 10:40AM ; [facility] Z68.24 - Body mass index [BM I] 24.0-24.9, adult Medical Established Patient with Don Pino MD 11/03/2021 Last Documented On 2 10:40AM ; [facility] Cough Medical Established Patient with Karlajulius Floresen CLINICAL PHARMACY TECHNICIAN 07/28/2021 Last Documented On 2 2:01PM ; [facility] Intervention and counseling on cessation of tobacco use, 3-10 minutes Discussed medication and nicotine replacement for tobacco cessation Medical Established Patient with Karla Amber CLINICAL PHARMACY TECHNICIAN 07/28/2021 Last Documented On 2 2:01PM ; [facility] Nicotine dependence Medical Established Patient with Karla Amber CLINICAL PHARMACY TECHNICIAN 07/28/2021 Last Documented On 2 2:01PM ; [facility] Z68.24 - Body mass index [BM I] 24.0-24.9, adult Medical Established Patient with Karla Amber CLINICAL PHARMACY TECHNICIAN 07/28/2021 Last Documented On 2 2:01PM ; [facility] Assess Colon screening Medical Established Patie nt with Karla Amber CLINICAL PHARMACY TECHNICIAN 05/08/2021 Last Documented On 1 10:59AM ; [facility] Diabetes Risk Test Score was four score 05/08/2021 Medical Established Patient with Karla Amber CLINICAL PHARMACY TECHNICIAN 05/08/2021 Last Documented On 1 10:59AM ; [facility] Routine adult history and ph ysical (18-64 yrs) without abnormal findings Medical Established Patient with Karla Amber CLINICAL PHARMACY TECHNICIAN 05/08/2021 Last Documented On 1 10:59AM ; [facility] Z68.24 - Body mass index [BM I] 24.0-24.9, adult Medical Established Patient with Karla Amber CLINICAL PHARMACY TECHNICIAN 05/08/2021 Last Documented On 1 10:59AM ; [facility] Z68.24 - Body mass index [BM I] 24.0-24.9, adult Medical Established Patient with Karla Amber CLINICAL PHARMACY TECHNICIAN 06/17/2020 Last Documented On 1 10:30AM ; [facility] Overweight Medical Established Patient with Karla Amber CLINICAL PHARMACY TECHNICIAN 06/06/2020 Last Documented On 1 2:06PM ; [facility] Z68.25 - Body mass index [BM I] 25.0-25.9, adult Medical Established Patient with Karla Clark CLINICAL PHARMACY TECHNICIAN 06/06/2020 Last Documented On 1 2:06PM ; [facility] Antiasthmatics [facility] Asthma Clinic-New with Karla Amber CLINICAL PHARMACY TECHNICIAN 05/06/2020 Last Documented On 0 7:27PM ; [facility] Assessment of tobacco use [facility] Asthma Clinic-New with Karla Amber CLINICAL PHARMACY TECHNICIAN 05/06/2020 Last Documented On 0 7:27PM ; [facility] Body mass index [facility] Asthma Clinic-New with Karla Amber CLINICAL PHARMACY TECHNICIAN 05/06/2020 Last Documented On 0 7:27PM ; [facility] Chronic obstructive pulmonary disease S [facility]-New with Karla Amber CLINICAL PHARMACY TECHNICIAN 05/06/2020 Last Documented On 0 7:27PM ; [facility] Overweight [facility] Asthma Clinic-New with Karlajulius Floresen CLINICAL PHARMACY TECHNICIAN 05/06/2020 Last Documented On 0 7:27PM ; [facility] Z11.4 - Encounter for screen ing for human immunodeficiency virus [HIV] [facility] Asthma Clinic-New with Karlajulius Floresen CLINICAL PHARMACY TECHNICIAN 05/06/2020 Last Documented On 0 7:27PM ; [facility] Diabetes Risk Test Score was three score 03/31/2020 Medical Established Patient with Karla Floresen CLINICAL PHARMACY TECHNICIAN 03/31/2020 Last Documented On 0 3:22PM ; [facility] Overweight Medical Established Patient with Karlajulius Floresen CLINICAL PHARMACY TECHNICIAN 03/31/2020 Last Documented On 0 3:22PM ; [facility] Z68.25 - Body mass index [BM I] 25.0-25.9, adult Medical Established Patient with Karla Floresen CLINICAL PHARMACY TECHNICIAN 03/31/2020 Last Documented On 0 3:22PM ; [facility] Encounter for Immunization Nurse Visit with Gary Clark CLINICAL PHARMACY TECHNICIAN 03/14/2020 Last Documented On 0 5:11PM ; [facility] Body mass index Medical Established Patient with Karlajulius Floresen CLINICAL PHARMACY TECHNICIAN 02/26/2020 Last Documented On 0 1:18PM ; [facility] Overweight Medical Established Patient with Karla Amber CLINICAL PHARMACY TECHNICIAN 02/26/2020 Last Documented On 0 1:18PM ; [facility] Overweight Medical Established Patient with Karlajulius Floresen CLINICAL PHARMACY TECHNICIAN 07/23/2019 Last Documented On 0 2:33PM ; [facility] Z68.27 - Body mass index (BM I) 27.0-27.9, adult Medical Established Patient with Karlajulius Floresen CLINICAL PHARMACY TECHNICIAN 07/23/2019 Last Documented On 0 2:33PM ; [facility] Occasional asthma CPS- Asthma Clinic- F/U with A french Clark CLINICAL PHARMACY TECHNICIAN 06/05/2019 Last Documented On 0 7:04PM ; [facility] Overweight CPS- Asthma Clinic- F/U with Aim julius Floresen CLINICAL PHARMACY TECHNICIAN 06/05/2019 Last Documented On 0 7:04PM ; [facility] Z68.27 - Body mass index (BM I) 27.0-27.9 adult CPS- Asthma Clinic- F/U with Karla Floresen CLINICAL PHARMACY TECHNICIAN 06/05/2019 Last Documented On 0 7:04PM ; [facility] Occasional asthma CPS Med Review with Karlajulius Flores en CLINICAL PHARMACY TECHNICIAN 04/23/2019 Last Documented On 9 4:01PM ; [facility] Overweight CPS Med Review with Karla Floresen CLINICAL PHARMACY TECHNICIAN 04/23/2019 Last Documented On 9 4:01PM ; [facility] Z68.27 - Body mass index (BM I) 27.0-27.9 adult CPS Med Review with Karla Floresen CLINICAL PHARMACY TECHNICIAN 04/23/2019 Last Documented On 9 4:01PM ; [facility] Acute pharyngitis Medical Established Patient wi th Brandy Serranoer CLINICAL PHARMACY TECHNICIAN 04/15/2019 Last Documented On 9 12:31PM ; [facility] Asthmatic bronchitis with ac [place] exacerbation Medical Established Patient with Brandy Warren CLINICAL PHARMACY TECHNICIAN 04/15/2019 Last Documented On 9 12:31PM ; [facility] Fagerstrom Score was two Medical Established Pat ient with Brandy Warren CLINICAL PHARMACY TECHNICIAN 04/15/2019 Last Documented On 9 12:31PM ; [facility] PHQ-9: total score was three 04/15/2019 Medical Established Patient with Brandy Kelley CLINICAL PHARMACY TECHNICIAN 04/15/2019 Last Documented On 9 12:31PM ; [facility] Body mass index Medical Established Patient with Karla Clark CLINICAL PHARMACY TECHNICIAN 03/05/2019 Last Documented On 9 10:27AM ; [facility] Diabetes Risk Test Score was three score Medical Established Patient with Karla Amber CLINICAL PHARMACY TECHNICIAN 03/05/2019 Last Documented On 9 10:27AM ; [facility] Overweight Medical Established Patient with Karla Amber CLINICAL PHARMACY TECHNICIAN 03/05/2019 Last Documented On 9 10:27AM ; [facility] Z68.28 - Body mass index (BM I) 28.0-28.9, adult Medical Established Patient with Karlajulius Floresen CLINICAL PHARMACY TECHNICIAN 12/22/2018 Last Documented On 9 10:32AM ; [facility] Assess routine adult history and physical (18 - 64 yrs) Medical Established Patient with Karla Amber CLINICAL PHARMACY TECHNICIAN 11/06/2018 Last Documented On 9 2:26PM ; [facility] Overweight Medical Established Patient with Karla Amber CLINICAL PHARMACY TECHNICIAN 11/06/2018 Last Documented On 9 2:26PM ; [facility] Z68.28 - Body mass index (BM I) 28.0-28.9, adult Medical Established Patient with Karla Amber CLINICAL PHARMACY TECHNICIAN 11/06/2018 Last Documented On 9 2:26PM ; [facility] Assess dysphagia Medical Established Patient wit h Karla Floresen CLINICAL PHARMACY TECHNICIAN 09/11/2018 Last Documented On 9 10:53AM ; [facility] Assess routine adult history and physical (18 - 64 yrs) Medical Established Patient with Karla Amber CLINICAL PHARMACY TECHNICIAN 09/11/2018 Last Documented On 9 10:53AM ; [facility] Assess primary insomnia with sleep apnea Medical Established Patient with Karla Amber CLINICAL PHARMACY TECHNICIAN 09/04/2018 Last Documented On 9 2:23PM ; [facility] Assess routine adult history and physical (18 - 64 yrs) Medical Established Patient with Karla Amber CLINICAL PHARMACY TECHNICIAN 09/04/2018 Last Documented On 9 2:23PM ; [facility] Overweight Medical Established Patient with Karla Clark DAKSHA 09/04/2018 Last Documented On 9 2:23PM ; [facility] Z68.29 - Body mass index (BM I) 29.0-29.9, adult Medical Established Patient with Karla Clark CLINICAL PHARMACY TECHNICIAN 09/04/2018 Last Documented On 9 2:23PM ; [facility] Assess vaginal candidiasis Medical Estab lished Patient with Karla Clark DAKSHA 07/31/2018 Last Documented On 9 2:12PM ; [facility] Work Phone: 1(890) 404-568808-26-2024 Progress note* Progress note Date Encounter Last Documented by 01/27/2024 Medical Established Patient Last documented on 01/28/2024; 9:12 AM, Vidaashley Culp CNP; [facility] Active Problems & Conditions - J45.909 - Asthma Occasional - Asthma - F31.9 - Bipolar Disorder Nos - Bipolar disorder, unspecified - J44.9 - Chronic Obstructive Pulmonary Disease - F32.9 - Major depressive disorder, single episode, unspecified - Depression - Schizoaffective Disorder Chief Complaint The Chief Complaint is: Pt here for ER f/u. Nurse from [facility] took stiches out on Saturday. Reason [...] once daily, 0 days, 0 refills - Shawano Carbonate 300 MG Oral Tablet one tablet [...] Bipolar disorder NOS Depression Heart Attack 03/2021 [facility]. Surgical: - General surgery right shoulder [...] 01/27/2024 08:41 am BP-Sitting R134/78 mmHg Pulse Rate-Iivaxzq26 bpm Kpyfst73 in Mtpuha887 lbs Body Mass Index25.6 kg/m2 Body Surface Area1.7 m2 Oxygen Cqhhmpbmuh10 % Vital Signs: - Systolic blood pressure [...] : Not at all. [id number] Progress note Author Reynaldo Kraft [facility] December 24, 2023 1:28pm Note Date/Time December 24, 2023 1:17 pm [facility] [address] [place] [address] Psychiatry Progress Note Signed Patient: Gail Almeida MR#: [id number] : 1955 Acct:[id number] Age/Sex: 68 / F Adm Date: 4 Loc: Room: [address] [place] [address] Type : ADM IN Attending Dr: Joe [...] mg QHS and 12.5 mg TID Continue Shawano 300 mg twice a day, clonidine 0.1 mg daily Continue to monitor mental status Encourage group participation and medication compliance Risk benefits alternatives explained Documented By: Reynaldo Kraft MD 12/24/23 1317 Signed By: <Electronically signed by Reynaldo Kraft MD> 12/24/23 1328 [facility] Work Phone: 1(938) 598-283607-22-2024 Progress note Author Reynaldo Kraft [facility] December 23, 2023 11:11am Note Date/Time December 23, 2023 11:1 1am [facility] [address] [place] [address] Psychiatry Progress Note Signed Patient: Gail Almeida MR#: [id number] : 1955 Acct:[id number] Age/Sex: 68 / F Adm Date: 4 Loc: Room: [address] [place] [address] Type : ADM IN Attending Dr: Joe [...] is okay with going to a different detention. Mental status exam: Mental Status: mental status [...] mg QHS and 12.5 mg TID Continue [place] 300 mg twice a day, clonidine 0.1 mg daily Continue to monitor mental status Encourage group participation and medication compliance Risk benefits alternatives explained Documented By: Reynaldo Kraft MD 12/23/23 1109 Signed By: <Electronically signed by Reynaldo Kraft MD> 12/23/23 1111 [facility] Work Phone: 1(892) 716-706407-21-2024 Progress note Author Joe rodriguez [facility] December 22, 2023 6:30am Note Date/Time December 22, 2023 6:29 am [facility] [address] [place] [address] Psychiatry Progress Note Signed Patient: Gail Almeida MR#: [id number] : 1955 Acct:[id number] Age/Sex: 68 / F Adm Date: 4 Loc: Room: [address] [place] [address] Type : ADM IN Attending Dr: Joe [...] Case management is working on placement options. Shawano level is 1.0. Case management to safety plan with patient's daughter. Continue Topamax 25 QHS, Zyprexa 5 mg daily and 15 mg QHS Continue Seroquel 400 mg QHS and 12.5 mg TID Continue [place], clonidine 0.1 mg daily Continue folic acid 1 mg daily and amantadine 100 mg daily Monitor for suicidal behaviors for safety of self (15-minute face check) Recommend attending groups and psychoeducation for building coping skills Typical short- and long-term side effects of the proposed medication regimen, including contraindications and clinically significant interactions, were discussed with the patient. Medication regimen includes Topamax, Zyprexa, Seroquel, Shawano, clonidine and folic acid. Side effects include [...] <Electronically signed by Joe Davis MD> 12/22/23629 [facility] Work Phone: 1(798) 324-321007-20-2024 Progress note Author Joe rodriguez [facility] December 21, 2023 6:35am Note Date/Time December 21, 2023 6:35 am [facility] [address] [place] [address] Psychiatry Progress Note Signed Patient: Gail Almeida MR#: [id number] : 1955 Acct:[id number] Age/Sex: 68 / F Adm Date: 4 Loc: Room: [address] [place] [address] Type : ADM IN Attending Dr: Joe [...] Case management is working on placement options. Shaw[place] level is 1.0. Case management to safety plan with patient's daughter. Continue Topamax 25 QHS, Zyprexa 5 mg daily and 15 mg QHS Continue Seroquel 400 mg QHS and 12.5 mg TID Continue [place], clonidine 0.1 mg daily Continue folic acid 1 mg daily and amantadine 100 mg daily Monitor for suicidal behaviors for safety of self (15-minute face check) Recommend attending groups and psychoeducation for building coping skills Typical short- and long-term side effects of the proposed medication regimen, including contraindications and clinically significant interactions, were discussed with the patient. Medication regimen includes Topamax, Zyprexa, Seroquel, Shawano, clonidine and folic acid. Side effects include [...] signed by Joe Davis MD> 12/21/23 0635 [facility] Work Phone: 1(362) 628-891607-19-2024 Progress note Author Joe rodriguez [facility] December 20, 2023 6:36am Note Date/Time December 20, 2023 6:36 am [facility] [address] [place] [address] Psychiatry Progress Note Signed Patient: Gail Almeida MR#: [id number] : 1955 Acct:[id number] Age/Sex: 68 / F Adm Date: 4 Loc: Room: [address] [place] [address] Type : ADM IN Attending Dr: Joe Davsi MD Copies to: ~ Date of Service: 12/20/2023 Subjective Subjective Narrative: Ms. Almeida said she had a good day and staff reported that she is at her baseline. She denied any AVH or SI/HI. She is compliant with treatment. Per casework supervisor, spoke with Alma Louis from [facility] in regards to placement for pt at discharge, states [facility] is not able to care for pt and has spoke with [place] about placement. This group underwriter to reach out toMelody at facility [...] Case management is working on placement options. Shaw[place] level is 1.0. Case management to safety plan with patient's daughter. Continue Topamax 25 QHS, Zyprexa 5 mg daily and 15 mg QHS Continue Seroquel 400 mg QHS and 12.5 mg TID Continue [place], clonidine 0.1 mg daily Continue folic acid 1 mg daily and amantadine 100 mg daily Monitor for suicidal behaviors for safety of self (15-minute face check) Recommend attending groups and psychoeducation for building coping skills Typical short- and long-term side effects of the proposed medication regimen, including contraindications and clinically significant interactions, were discussed with the patient. Medication regimen includes Topamax, Zyprexa, Seroquel, Shawano, clonidine and folic acid. Side effects include [...] provided. Documented By: Joe Davis MD 4 0611 Signed By: <Electronically signed by Joe Davis MD> 12/20/23 0636 [facility] Work Phone: 1(540) 641-793407-18-2024 Progress note Author Joe rodriguez [facility] December 19, 2023 6:46am Note Date/Time December 19, 2023 6:45 am [facility] [address] [place] [address] Psychiatry Progress Note Signed Patient: Gail Almeida MR#: [id number] : 1955 Acct:[id number] Age/Sex: 68 / F Adm Date: 4 Loc: Room: [address] [place] [address] Type : ADM IN Attending Dr: Joe [...] showing signs of improvement and denied SI/HI. Shawano level is 1.0. Case management to safety plan with patient's daughter. Continue Topamax 25 QHS, Zyprexa 5 mg daily and 15 mg QHS Continue Seroquel 400 mg QHS and 12.5 mg TID Continue [place], clonidine 0.1 mg daily Continue folic acid 1 mg daily and amantadine 100 mg daily Monitor for suicidal behaviors for safety of self (15-minute face check) Recommend attending groups and psychoeducation for building coping skills Typical short- and long-term side effects of the proposed medication regimen, including contraindications and clinically significant interactions, were discussed with the patient. Medication regimen includes Topamax, Zyprexa, Seroquel, Shawano, clonidine and folic acid. Side effects include [...] signed by Joe Davis MD> 12/19/23 0646 [facility] Work Phone: 1(110) 835-632507-17-2024 Progress note Author Joe rodriguez [facility] December 18, 2023 6:40am Note Date/Time December 18, 2023 6:38 am [facility] [address] [place] [address] Psychiatry Progress Note Signed Patient: Gail Almeida MR#: [id number] : 1955 Acct:[id number] Age/Sex: 68 / F Adm Date: 4 Loc: 1S Room: [address] [place] [address] Type : ADM IN Attending Dr: Joe [...] showing signs of improvement and denied SI/HI. Shawano level is pending. Continue Topamax 25 QHS, Zyprexa 5 mg daily and 15 mg QHS Continue Seroquel 400 mg QHS and 12.5 mg TID Continue [place], clonidine 0.1 mg daily Continue folic acid 1 mg daily and amantadine 100 mg daily Monitor for suicidal behaviors for safety of self (15-minute face check) Recommend attending groups and psychoeducation for building coping skills Typical short- and long-term side effects of the proposed medication regimen, including contraindications and clinically significant interactions, were discussed with the patient. Medication regimen includes Topamax, Zyprexa, Seroquel, Shawano, clonidine and folic acid. Side effects include [...] signed by Joe Davis MD> 12/18/23 0640 [facility] Work Phone: 1(911) 109-814607-16-2024 History and physical note Author Joe rodriguez [facility] December 17, 2023 11:50am Note Date/Time December 17, 2023 10:1 7am [facility] [address] [place] [address] Psychiatry H&P Signed Patient: Gail Almeida MR#: [id number] : 1955 Acct:[id number] Age/Sex: 68 / F Adm Date: 4 Loc: Room: [address] [place] [address] Type: ADM IN Attending Dr: Joe Davis [...] assisted living facility called. She lives at [facility]. The pt has been having visual hallucinations [...] HI and AVH Insight: Poor Judgment: Poor [facility] Medical History (Updated 12/16/23 @ 14:32 by [...] oral powder 17 g PO DAILY PRN Fzxeqtuxnexv07/10/23 [History Confirmed 12/16/23] albuterol sulfate 90 mcg/actuation [...] 12/16/23] dextromethorphan-guaifenesin 30 mg-600 mg tablet extended abbnxll27 hr (Mucus DM) 1 tab PO Q12HR [...] Appearance Clear Urine pH 7.0 Ur Specific [place] 1.005 Urine Protein Negative Urine Glucose (UA) Normal Urine Ketones Negative Urine Occult Blood Negative Urine Nitrite Negative Ur Leukocyte Esterase Negative Assessment/Plan (1) Chronic schizophrenia: (2) Acute psychosis: Plan Continue Topamax 25 QHS, Zyprexa 5 mg daily and 15 mg QHS Continue Seroquel 400 mg QHS and 12.5 mg TID Continue [place], clonidine 0.1 mg daily Continue folic acid 1 mg daily and amantadine 100 mg daily Monitor for suicidal behaviors for safety of self (15-minute face check) Recommend attending groups and psychoeducation for building coping skills Typical short- and long-term side effects of the proposed medication regimen, including contraindications and clinically significant interactions, were discussed with the patient. Medication regimen includes Topamax, Zyprexa, Seroquel, Shawano, clonidine and folic acid. Side effects include [...] Documented By: Mazin Lamb DO, DONOVAN 12/17/23 0795 Signed By: <Electronically signed by DO DONOVAN Lamb> 12/17/23 1017 <Electronically signed by Joe Davis MD> 12/17/23 0140 [facility] Work Phone: 1(416) 682-245306-14-2024 Progress note* Progress note Date Encounter Last Documented by 11/15/2023 Chart Update Last documented on 11/15/2023; 12:07 PM, Karla Clark CNP; [facility] Active Problems & Conditions - J45.909 [...] 1 actuation by mouth twice daily (replaces Garlik r/t insurance), 30 days, 11 refills - [...] once daily, 0 days, 0 refills - Shaw[place] Carbonate 300 MG Oral Tablet one tablet [...] Bipolar disorder NOS Depression Heart Attack 03/2021 [facility]. Surgical: - General surgery right shoulder [...] Planning Care Team - Karla Clark CNP [facility]06-14-2024 Instructions Includes: Instructions for all patient encounters Instructions to patient Intervention and counseling on cessation of tobacco use, 3-10 minutes Discussed medication and nicotine replacement for tobacco cessation Last Documented On 3 8:54AM ; [facility] Intervention and counseling on cessation of tobacco use, 3-10 minutes Discussed medication and nicotine replacement for tobacco cessation Last Documented On 2 1:56PM ; [facility] Intervention and counseling on cessation of tobacco use, 3-10 minutes Last Documented On 0 2:07PM ; [facility] Return to the clinic if cond ition worsens or new symptoms arise Last Documented On 9 1:59PM ; [facility] Intervention and counseling on cessation of tobacco use, 3-10 minutes Last Documented On 9 10:39AM ; [facility] Education and Decision Aids were provided during visit for: Discussed nutritional needs teach healthy choices including fruits and vegetables Last Documented On 4 1:26PM ; [facility] Patient education about a pr oper diet Last Documented On 4 1:26PM ; [facility] Discussed concerns about exe rcise : promote physical activity Last Documented On 4 1:26PM ; [facility] Discussed nutritional needs teach healthy choices including fruits and vegetables Last Documented On 3 10:55AM ; [facility] Patient education about a pr oper diet Last Documented On 3 10:55AM ; [facility] Discussed concerns about exe rcise : promote physical activity Last Documented On 3 10:55AM ; [facility] Discussed nutritional needs teach healthy choices including fruits and vegetables Last Documented On 3 9:37AM ; [facility] Patient education about a pr oper diet Last Documented On 3 9:37AM ; [facility] Discussed concerns about exe rcise : promote physical activity Last Documented On 3 9:37AM ; [facility] Not requesting contraception Last Documented On 3 9:37AM ; [facility] Discussed nutritional needs teach healthy choices including fruits and vegetables Last Documented On 3 9:20AM ; [facility] Patient education about a pr oper diet Last Documented On 3 9:20AM ; [facility] Discussed concerns about exe rcise : promote physical activity Last Documented On 3 9:20AM ; [facility] Discussed nutritional needs teach healthy choices including fruits and vegetables Last Documented On 3 2:02PM ; [facility] Patient education about a pr oper diet Last Documented On 3 2:02PM ; [facility] Discussed concerns about exe rcise : promote physical activity Last Documented On 3 2:02PM ; [facility] Discussed nutritional needs teach healthy choices including fruits and vegetables Last Documented On 3 8:32AM ; [facility] Patient education about a pr oper diet Last Documented On 3 8:32AM ; [facility] Discussed concerns about exe rcise : promote physical activity Last Documented On 3 8:32AM ; [facility] Discussed nutritional needs teach healthy choices including fruits and vegetables Last Documented On 3 11:28AM ; [facility] Patient education about a pr oper diet Last Documented On 3 11:28AM ; [facility] Discussed concerns about exe rcise : promote physical activity Last Documented On 3 11:28AM ; [facility] Discussed nutritional needs teach healthy choices including fruits and vegetables Last Documented On 2 2:01PM ; [facility] Patient education about a pr oper diet Last Documented On 2 2:01PM ; [facility] Discussed concerns about exe rcise : promote physical activity Last Documented On 2 2:01PM ; [facility] Discussed nutritional needs teach healthy choices including fruits and vegetables Last Documented On 2 2:11PM ; [facility] Patient education about a pr oper diet Last Documented On 2 2:11PM ; [facility] Discussed concerns about exe rcise : promote physical activity Last Documented On 2 2:11PM ; [facility] Discussed current self-care methods/coping skills. ~Validated and normalized pt's feelings while assisting patient process recent events. ~Discussed ongoing counseling. ~Discussed lifestyle changes to address chronic illness. ~Supported patient's personal health goals ~wordfinds. walk, read, eat, enjoy my best friesnd Last Documented On 2 5:54PM ; [facility] Discussed nutritional needs teach healthy choices including fruits and vegetables Last Documented On 2 10:04AM ; [facility] Patient education about a pr oper diet Last Documented On 2 10:04AM ; [facility] Discussed concerns about exe rcise : promote physical activity Last Documented On 2 10:04AM ; [facility] Discussed nutritional needs teach healthy choices including fruits and vegetables Last Documented On 2 1:25PM ; [facility] Patient education about a pr oper diet Last Documented On 2 1:25PM ; [facility] Discussed concerns about exe rcise : promote physical activity Last Documented On 2 1:25PM ; [facility] Discussed nutritional needs teach healthy choices including fruits and vegetables Last Documented On 1 10:08AM ; [facility] Patient education about a pr oper diet Last Documented On 1 10:08AM ; [facility] Discussed concerns about exe rcise : promote physical activity Last Documented On 1 10:08AM ; [facility] Discussed nutritional needs teach healthy choices including fruits and vegetables Last Documented On 1 1:12PM ; [facility] Patient education about a pr oper diet Last Documented On 1 1:12PM ; [facility] Patient education about a pr oper diet Last Documented On 1 1:30PM ; [facility] Patient education about meal planning Last Documented On 1 1:30PM ; [facility] Education about changing eat ing habits Last Documented On 1 1:30PM ; [facility] Patient education about high fiber diet Last Documented On 1 1:30PM ; [facility] Patient education about low fat diet Last Documented On 1 1:30PM ; [facility] Patient education about low cholesterol diet Last Documented On 1 1:30PM ; [facility] Patient education about low carbohydrate diet Last Documented On 1 1:30PM ; [facility] Patient education about high protein diet Last Documented On 1 1:30PM ; [facility] Discussed concerns about exe rcise : promote physical activity Last Documented On 1 1:12PM ; [facility] Education/counseling conduct ed by pharmacist Last Documented On 0 1:39PM ; [facility] Vaccination counseling Last Documented On 0 1:39PM ; [facility] Discussed concerns about exe rcise : promote physical activity Last Documented On 0 2:16PM ; [facility] Patient goals decrease short ness of breath episodes Last Documented On 0 2:11PM ; [facility] Patient states that she uses her [...] recently Last Documented On 0 2:24PM ; [facility] Patient education about a pr oper diet Last Documented On 0 2:54PM ; [facility] Patient education about meal planning Last Documented On 0 2:54PM ; [facility] Education about changing eat ing habits Last Documented On 0 2:54PM ; [facility] Patient education about high fiber diet Last Documented On 0 2:54PM ; [facility] Patient education about low fat diet Last Documented On 0 2:54PM ; [facility] Patient education about low cholesterol diet Last Documented On 0 2:54PM ; [facility] Patient education about low carbohydrate diet Last Documented On 0 2:54PM ; [facility] Patient education about high protein diet Last Documented On 0 2:54PM ; [facility] Discussed nutritional needs teach healthy choices including fruits and vegetables Last Documented On 0 11:11AM ; [facility] Patient education about a pr oper diet Last Documented On 0 11:11AM ; [facility] Patient education about a pr oper diet Last Documented On 0 11:28AM ; [facility] Patient education about meal planning Last Documented On 0 11:28AM ; [facility] Education about changing eat ing habits Last Documented On 0 11:28AM ; [facility] Patient education about high fiber diet Last Documented On 0 11:28AM ; [facility] Patient education about low fat diet Last Documented On 0 11:28AM ; [facility] Patient education about low cholesterol diet Last Documented On 0 11:28AM ; [facility] Patient education about low carbohydrate diet Last Documented On 0 11:28AM ; [facility] Patient education about high protein diet Last Documented On 0 11:28AM ; [facility] Discussed concerns about exe rcise : promote physical activity Last Documented On 0 11:11AM ; [facility] Education/counseling conduct ed by pharmacist Last Documented On 0 1:41PM ; [facility] Patient states that she lonnie gonzalez [...] own Last Documented On 0 2:08PM ; [facility] Education/counseling conduct ed by pharmacist Last Documented On 9 1:12PM ; [facility] Patient states that she lonnie gonzalez has issues with her inhaler with the spacer. Patient did not bring in inhaler or spacer. Patient was told to bring in inhalers at next scheduled visit for pharmacist to assess inhalation technique. Patient is agreeable Last Documented On 9 1:13PM ; [facility] Patient goals Start using ch deon to help with inhaling dulera Last Documented On 9 2:40PM ; [facility] Patient states that she is g [...] vaccines Last Documented On 9 2:51PM ; [facility] Discussed nutritional needs teach healthy choices including fruits and vegetables Last Documented On 9 9:29AM ; [facility] Patient education about a pr oper diet Last Documented On 9 9:29AM ; [facility] Discussed concerns about exe rcise : promote physical activity Last Documented On 9 9:29AM ; [facility] Work Phone: [phone]) 723-119605-03-2024 Evaluation note Includes: Assessments for all patient encounters Findings Encounter Date [F17.210 - Nicotine dependen ce, cigarettes, uncomplicated] continuous dependence on cigarette smoking Medical Established Patient with Karla Clark [facility] 10/04/2023 Last Documented On 4 6:30PM ; [facility] [Z12.11 - Encounter for scre ening for malignant neoplasm of colon] Colon screening Medical Established Patient with Karla Clark [facility] 10/04/2023 Last Documented On 4 6:30PM ; [facility] [Z68.25 - Body mass index [B NH] 25.0-25.9, adult] assessment of body mass index Medical Established Patient with Karla Clark [facility] 10/04/2023 Last Documented On 4 6:30PM ; [facility] Diabetes Risk Test Score was five score 10/04/2023 Medical Established Patient with Karla Clark [facility] 10/04/2023 Last Documented On 4 6:30PM ; [facility] Encounter for Immunization Medical Estab lished Patient with Karla Clark [facility] 10/04/2023 Last Documented On 4 6:30PM ; [facility] [D48.5 - Neoplasm of uncerta in behavior of skin] skin neoplasm of uncertain behavior Medical Established Patient with Karla Clark [facility] 05/22/2023 Last Documented On 3 1:30PM ; [facility] [Z68.24 - Body mass index [B NH] 24.0-24.9, adult] assessment of body mass index Medical Established Patient with Karla Clark [facility] 05/22/2023 Last Documented On 3 1:30PM ; [facility] Assessment of tobacco use Medical Establ ished Patient with Karla Clark [facility] 05/22/2023 Last Documented On 3 1:30PM ; [facility] [R30.0 - Dysuria] Dysuria Chart Update with Gary Clark CLINICAL PHARMACY TECHNICIAN 03/21/2023 Last Documented On 3 11:27AM ; [facility] [Z12.39 - Encounter for othe r screening for malignant neoplasm of breast] visit for: screening for malignant breast neoplasm Medical Established Patient with Aaron Whitaker CLINICAL PHARMACY TECHNICIAN 02/28/2023 Last Documented On 3 9:51AM ; [facility] [Z68.24 - Body mass index [B NH] 24.0-24.9, adult] assessment of body mass index Medical Established Patient with Aaron Whitaker CLINICAL PHARMACY TECHNICIAN 02/28/2023 Last Documented On 3 9:51AM ; [facility] Assessment of tobacco use Medical Establ ished Patient with Aaron Whitaker CLINICAL PHARMACY TECHNICIAN 02/28/2023 Last Documented On 3 9:51AM ; [facility] Chronic obstructive pulmonary disease Me dical Established Patient with Aaron Whitaker CLINICAL PHARMACY TECHNICIAN 02/28/2023 Last Documented On 3 9:51AM ; [facility] [J20.9 - Acute bronchitis, unspecified] acute bronchitis Medical Established Patient with Karla Clark CLINICAL PHARMACY TECHNICIAN 11/19/2022 Last Documented On 3 10:15AM ; [facility] [M79.621 - Pain in right upp er arm] pain in upper arm Medical Established Patient with Karla Clark CLINICAL PHARMACY TECHNICIAN 11/19/2022 Last Documented On 3 10:15AM ; [facility] [Z68.23 - Body mass index [B NH] 23.0-23.9, adult] assessment of body mass index Medical Established Patient with Karla Clark CLINICAL PHARMACY TECHNICIAN 11/19/2022 Last Documented On 3 10:15AM ; [facility] [M79.601 - Pain in right arm ] pain in right arm Medical Established Patient with Karla Clark CLINICAL PHARMACY TECHNICIAN 09/18/2022 Last Documented On 3 2:33PM ; [facility] [Z68.24 - Body mass index [B NH] 24.0-24.9, adult] assessment of body mass index Medical Established Patient with Karla Clark CLINICAL PHARMACY TECHNICIAN 09/18/2022 Last Documented On 3 2:33PM ; [facility] Assessment of tobacco use Medical Establ ished Patient with Karla Clark CLINICAL PHARMACY TECHNICIAN 09/18/2022 Last Documented On 3 2:33PM ; [facility] [M25.569 - Pain in unspecifi ed knee] arthralgia of knee / patella / tibia / fibula Medical Established Patient with Karla Clark CLINICAL PHARMACY TECHNICIAN 08/27/2022 Last Documented On 3 9:20AM ; [facility] [Z68.24 - Body mass index [B NH] 24.0-24.9, adult] assessment of body mass index Medical Established Patient with Karla Clark CLINICAL PHARMACY TECHNICIAN 08/27/2022 Last Documented On 3 9:20AM ; [facility] Intervention and counseling on cessation of tobacco use, 3-10 minutes Discussed medication and nicotine replacement for tobacco cessation Medical Established Patient with Karla Clark CLINICAL PHARMACY TECHNICIAN 08/27/2022 Last Documented On 3 9:20AM ; [facility] Nicotine dependence Medical Established Patient with Karla Clark CLINICAL PHARMACY TECHNICIAN 08/27/2022 Last Documented On 3 9:20AM ; [facility] Visit for routine adult H&P without abnormal findings Medical Established Patient with Karla Clark CNP 08/27/2022 Last Documented On 3 9:20AM ; [facility] [H92.02 - Otalgia, left ear] earache Med ical Established Patient with Karla Clark CLINICAL PHARMACY TECHNICIAN 06/18/2022 Last Documented On 3 12:11PM ; [facility] [M79.604 - Pain in right leg ] pain in right leg Medical Established Patient with Karla Clark CLINICAL PHARMACY TECHNICIAN 06/18/2022 Last Documented On 3 12:11PM ; [facility] [Z68.24 - Body mass index [B NH] 24.0-24.9, adult] assessment of body mass index Medical Established Patient with Karla Clark CLINICAL PHARMACY TECHNICIAN 06/18/2022 Last Documented On 3 12:11PM ; [facility] Assessment of tobacco use Medical Establ ished Patient with Karla Clark CLINICAL PHARMACY TECHNICIAN 06/18/2022 Last Documented On 3 12:11PM ; [facility] Diabetes Risk Test Score was four score 06/18/2022 Medical Established Patient with Karlajulius Clark CLINICAL PHARMACY TECHNICIAN 06/18/2022 Last Documented On 3 12:11PM ; [facility] Schizoaffective disorder Established Patient with Yin Feliz LPCC-S 03/20/2022 Last Documented On 2 12:13AM ; [facility] No cough Medical Established Patient with Karla Amber CLINICAL PHARMACY TECHNICIAN 12/20/2021 Last Documented On 2 3:12PM ; [facility] Visit for: screening for hum an immunodeficiency virus Medical Established Patient with Karlajulius Clark CLINICAL PHARMACY TECHNICIAN 12/20/2021 Last Documented On 2 3:12PM ; [facility] Z68.24 - Body mass index [BM I] 24.0-24.9, adult Medical Established Patient with Karla Clark CLINICAL PHARMACY TECHNICIAN 12/20/2021 Last Documented On 2 3:12PM ; [facility] Bipolar disorder NOS BH Established Patient with Yin Feliz LPCC-S 11/03/2021 Last Documented On 2 7:00PM ; [facility] Bipolar schizoaffective disorder BH Esta blished Patient with Yin Feliz LPCC-S 11/03/2021 Last Documented On 2 7:00PM ; [facility] PLAN Medical Established Patient with Don Pino MD 11/03/2021 Last Documented On 2 10:40AM ; [facility] Abnormal electrocardiogram Medical Estab lished Patient with Don Pino MD 11/03/2021 Last Documented On 2 10:40AM ; [facility] Z68.24 - Body mass index [BM I] 24.0-24.9, adult Medical Established Patient with Don Pino MD 11/03/2021 Last Documented On 2 10:40AM ; [facility] Cough Medical Established Patient with Karla Clark CLINICAL PHARMACY TECHNICIAN 07/28/2021 Last Documented On 2 2:01PM ; [facility] Intervention and counseling on cessation of tobacco use, 3-10 minutes Discussed medication and nicotine replacement for tobacco cessation Medical Established Patient with Karla Clark CLINICAL PHARMACY TECHNICIAN 07/28/2021 Last Documented On 2 2:01PM ; [facility] Nicotine dependence Medical Established Patient with Karla Amber CLINICAL PHARMACY TECHNICIAN 07/28/2021 Last Documented On 2 2:01PM ; [facility] Z68.24 - Body mass index [BM I] 24.0-24.9, adult Medical Established Patient with Karla Amber CLINICAL PHARMACY TECHNICIAN 07/28/2021 Last Documented On 2 2:01PM ; [facility] Assess Colon screening Medical Established Patie nt with Karlajulius Clark CLINICAL PHARMACY TECHNICIAN 05/08/2021 Last Documented On 1 10:59AM ; [facility] Diabetes Risk Test Score was four score 05/08/2021 Medical Established Patient with Karla Clark CLINICAL PHARMACY TECHNICIAN 05/08/2021 Last Documented On 1 10:59AM ; [facility] Routine adult history and ph ysical (18-64 yrs) without abnormal findings Medical Established Patient with Karla Clark CLINICAL PHARMACY TECHNICIAN 05/08/2021 Last Documented On 1 10:59AM ; [facility] Z68.24 - Body mass index [BM I] 24.0-24.9, adult Medical Established Patient with Karla Clark CLINICAL PHARMACY TECHNICIAN 05/08/2021 Last Documented On 1 10:59AM ; [facility] Z68.24 - Body mass index [BM I] 24.0-24.9, adult Medical Established Patient with Karla Amber CLINICAL PHARMACY TECHNICIAN 06/17/2020 Last Documented On 1 10:30AM ; [facility] Overweight Medical Established Patient with Karla Amber CLINICAL PHARMACY TECHNICIAN 06/06/2020 Last Documented On 1 2:06PM ; [facility] Z68.25 - Body mass index [BM I] 25.0-25.9, adult Medical Established Patient with Karla Amber CLINICAL PHARMACY TECHNICIAN 06/06/2020 Last Documented On 1 2:06PM ; [facility] Antiasthmatics [facility]-New with Karla Amber CLINICAL PHARMACY TECHNICIAN 05/06/2020 Last Documented On 0 7:27PM ; [facility] Assessment of tobacco use CPS [facility] with Karla Amber CLINICAL PHARMACY TECHNICIAN 05/06/2020 Last Documented On 0 7:27PM ; [facility] Body mass index [facility]-New with Karla Amber CLINICAL PHARMACY TECHNICIAN 05/06/2020 Last Documented On 0 7:27PM ; [facility] Chronic obstructive pulmonary disease CP S [facility] with Karla Amber CLINICAL PHARMACY TECHNICIAN 05/06/2020 Last Documented On 0 7:27PM ; [facility] Overweight [facility]-New with Karla Amber CLINICAL PHARMACY TECHNICIAN 05/06/2020 Last Documented On 0 7:27PM ; [facility] Z11.4 - Encounter for screen ing for human immunodeficiency virus [HIV] [facility]-New with Karlajulius Floresen CLINICAL PHARMACY TECHNICIAN 05/06/2020 Last Documented On 0 7:27PM ; [facility] Diabetes Risk Test Score was three score 03/31/2020 Medical Established Patient with Karla Amber CLINICAL PHARMACY TECHNICIAN 03/31/2020 Last Documented On 0 3:22PM ; [facility] Overweight Medical Established Patient with Karla Amber CLINICAL PHARMACY TECHNICIAN 03/31/2020 Last Documented On 0 3:22PM ; [facility] Z68.25 - Body mass index [BM I] 25.0-25.9, adult Medical Established Patient with Karla Floresen CLINICAL PHARMACY TECHNICIAN 03/31/2020 Last Documented On 0 3:22PM ; [facility] Encounter for Immunization Nurse Visit with Gary Clark CLINICAL PHARMACY TECHNICIAN 03/14/2020 Last Documented On 0 5:11PM ; [facility] Body mass index Medical Established Patient with Karla Amber CLINICAL PHARMACY TECHNICIAN 02/26/2020 Last Documented On 0 1:18PM ; [facility] Overweight Medical Established Patient with Karla Amber CLINICAL PHARMACY TECHNICIAN 02/26/2020 Last Documented On 0 1:18PM ; [facility] Overweight Medical Established Patient with Karla Amber CLINICAL PHARMACY TECHNICIAN 07/23/2019 Last Documented On 0 2:33PM ; [facility] Z68.27 - Body mass index (BM I) 27.0-27.9, adult Medical Established Patient with Karla Clark CLINICAL PHARMACY TECHNICIAN 07/23/2019 Last Documented On 0 2:33PM ; [facility] Occasional asthma CPS- [facility]hma Clinic- F/U with A french Clark CLINICAL PHARMACY TECHNICIAN 06/05/2019 Last Documented On 0 7:04PM ; [facility] Overweight CPS- [facility]- F/U with Aim julius Clark CLINICAL PHARMACY TECHNICIAN 06/05/2019 Last Documented On 0 7:04PM ; [facility] Z68.27 - Body mass index (BM I) 27.0-27.9 adult CPS- [facility]- F/U with Karla Clark CLINICAL PHARMACY TECHNICIAN 06/05/2019 Last Documented On 0 7:04PM ; [facility] Occasional asthma CPS Med Review with Karla dinh CLINICAL PHARMACY TECHNICIAN 04/23/2019 Last Documented On 9 4:01PM ; [facility] Overweight CPS Med Review with Karla Clark CLINICAL PHARMACY TECHNICIAN 04/23/2019 Last Documented On 9 4:01PM ; [facility] Z68.27 - Body mass index (BM I) 27.0-27.9 adult CPS Med Review with Karla Clark CLINICAL PHARMACY TECHNICIAN 04/23/2019 Last Documented On 9 4:01PM ; [facility] Acute pharyngitis Medical Established Patient wi th Brandy Warren CLINICAL PHARMACY TECHNICIAN 04/15/2019 Last Documented On 9 12:31PM ; [facility] Asthmatic bronchitis with ac [place] exacerbation Medical Established Patient with Brandy Warren CLINICAL PHARMACY TECHNICIAN 04/15/2019 Last Documented On 9 12:31PM ; [facility] Fagerstrom Score was two Medical Established Pat ient with Brandy Warren CLINICAL PHARMACY TECHNICIAN 04/15/2019 Last Documented On 9 12:31PM ; [facility] PHQ-9: total score was three 04/15/2019 Medical Established Patient with Brandy Warren CLINICAL PHARMACY TECHNICIAN 04/15/2019 Last Documented On 9 12:31PM ; [facility] Body mass index Medical Established Patient with Karla Amber CLINICAL PHARMACY TECHNICIAN 03/05/2019 Last Documented On 9 10:27AM ; [facility] Diabetes Risk Test Score was three score Medical Established Patient with Karla Amber CLINICAL PHARMACY TECHNICIAN 03/05/2019 Last Documented On 9 10:27AM ; [facility] Overweight Medical Established Patient with Karla Amber CLINICAL PHARMACY TECHNICIAN 03/05/2019 Last Documented On 9 10:27AM ; [facility] Z68.28 - Body mass index (BM I) 28.0-28.9, adult Medical Established Patient with Karla Amber CLINICAL PHARMACY TECHNICIAN 12/22/2018 Last Documented On 9 10:32AM ; [facility] Assess routine adult history and physical (18 - 64 yrs) Medical Established Patient with Karla Amber CLINICAL PHARMACY TECHNICIAN 11/06/2018 Last Documented On 9 2:26PM ; [facility] Overweight Medical Established Patient with Karla Amber CLINICAL PHARMACY TECHNICIAN 11/06/2018 Last Documented On 9 2:26PM ; [facility] Z68.28 - Body mass index (BM I) 28.0-28.9, adult Medical Established Patient with Karla Amber CLINICAL PHARMACY TECHNICIAN 11/06/2018 Last Documented On 9 2:26PM ; [facility] Assess dysphagia Medical Established Patient wit h Karla Amber CLINICAL PHARMACY TECHNICIAN 09/11/2018 Last Documented On 9 10:53AM ; [facility] Assess routine adult history and physical (18 - 64 yrs) Medical Established Patient with Karla Amber CLINICAL PHARMACY TECHNICIAN 09/11/2018 Last Documented On 9 10:53AM ; [facility] Assess primary insomnia with sleep apnea Medical Established Patient with Karla Amber CLINICAL PHARMACY TECHNICIAN 09/04/2018 Last Documented On 9 2:23PM ; [facility] Assess routine adult history and physical (18 - 64 yrs) Medical Established Patient with Karla Amber CLINICAL PHARMACY TECHNICIAN 09/04/2018 Last Documented On 9 2:23PM ; [facility] Overweight Medical Established Patient with Karla Amber CLINICAL PHARMACY TECHNICIAN 09/04/2018 Last Documented On 9 2:23PM ; [facility] Z68.29 - Body mass index (BM I) 29.0-29.9, adult Medical Established Patient with Karla Clark CLINICAL PHARMACY TECHNICIAN 09/04/2018 Last Documented On 9 2:23PM ; [facility] Assess vaginal candidiasis Medical Estab lished Patient with Karla Clark CLINICAL PHARMACY TECHNICIAN 07/31/2018 Last Documented On 9 2:12PM ; [facility] Work Phone: 1(546) 648-214605-03-2024 Progress note* Progress note Date Encounter Last Documented by 10/04/2023 Medical Established Patient Last documented on 10/04/2023; 6:30 PM, Karla Clark CLINICAL PHARMACY TECHNICIAN; [facility] Active Problems & Conditions - J45.909 [...] thyroid gland removed in Jul 2023 at [facility] Had lesion removed from nose and going [...] once daily, 0 days, 0 refills - [place] Carbonate 150 MG Oral Capsule one capsule [...] Bipolar disorder NOS Depression Heart Attack 03/2021 [facility]. Surgical: - General surgery right shoulder [...] BP-Sitting L142/88 mmHg BP Cuff SizeRegular Pulse Rate-Ewgxped99 bpm Evtqyi68 in Gtrmvf140 lbs Body Mass Index25.2 kg/m2 Body Surface Area1.7 m2 Oxygen Ewjodrcmcj22 % - Vitals taken 10/04/2023 01:33 pm [...] clothing: No, unable to get needed child center assistant: No, unable to get needed phone: [...] or older (3 points) [Pre-DM]. [facility]05-03-2024 Instructions Includes: Instructions for all patient encounters Instructions to patient Intervention and counseling on cessation of tobacco use, 3-10 minutes Discussed medication and nicotine replacement for tobacco cessation Last Documented On 3 8:54AM ; [facility] Intervention and counseling on cessation of tobacco use, 3-10 minutes Discussed medication and nicotine replacement for tobacco cessation Last Documented On 2 1:56PM ; [facility] Intervention and counseling on cessation of tobacco use, 3-10 minutes Last Documented On 0 2:07PM ; [facility] Return to the clinic if cond ition worsens or new symptoms arise Last Documented On 9 1:59PM ; [facility] Intervention and counseling on cessation of tobacco use, 3-10 minutes Last Documented On 9 10:39AM ; [facility] Education and Decision Aids were provided during visit for: Discussed nutritional needs teach healthy choices including fruits and vegetables Last Documented On 4 1:26PM ; [facility] Patient education about a pr oper diet Last Documented On 4 1:26PM ; [facility] Discussed concerns about exe rcise : promote physical activity Last Documented On 4 1:26PM ; [facility] Discussed nutritional needs teach healthy choices including fruits and vegetables Last Documented On 3 10:55AM ; [facility] Patient education about a pr oper diet Last Documented On 3 10:55AM ; [facility] Discussed concerns about exe rcise : promote physical activity Last Documented On 3 10:55AM ; [facility] Discussed nutritional needs teach healthy choices including fruits and vegetables Last Documented On 3 9:37AM ; [facility] Patient education about a pr oper diet Last Documented On 3 9:37AM ; [facility] Discussed concerns about exe rcise : promote physical activity Last Documented On 3 9:37AM ; [facility] Not requesting contraception Last Documented On 3 9:37AM ; [facility] Discussed nutritional needs teach healthy choices including fruits and vegetables Last Documented On 3 9:20AM ; [facility] Patient education about a pr oper diet Last Documented On 3 9:20AM ; [facility] Discussed concerns about exe rcise : promote physical activity Last Documented On 3 9:20AM ; [facility] Discussed nutritional needs teach healthy choices including fruits and vegetables Last Documented On 3 2:02PM ; [facility] Patient education about a pr oper diet Last Documented On 3 2:02PM ; [facility] Discussed concerns about exe rcise : promote physical activity Last Documented On 3 2:02PM ; [facility] Discussed nutritional needs teach healthy choices including fruits and vegetables Last Documented On 3 8:32AM ; [facility] Patient education about a pr oper diet Last Documented On 3 8:32AM ; [facility] Discussed concerns about exe rcise : promote physical activity Last Documented On 3 8:32AM ; [facility] Discussed nutritional needs teach healthy choices including fruits and vegetables Last Documented On 3 11:28AM ; [facility] Patient education about a pr oper diet Last Documented On 3 11:28AM ; [facility] Discussed concerns about exe rcise : promote physical activity Last Documented On 3 11:28AM ; [facility] Discussed nutritional needs teach healthy choices including fruits and vegetables Last Documented On 2 2:01PM ; [facility] Patient education about a pr oper diet Last Documented On 2 2:01PM ; [facility] Discussed concerns about exe rcise : promote physical activity Last Documented On 2 2:01PM ; [facility] Discussed nutritional needs teach healthy choices including fruits and vegetables Last Documented On 2 2:11PM ; [facility] Patient education about a pr oper diet Last Documented On 2 2:11PM ; [facility] Discussed concerns about exe rcise : promote physical activity Last Documented On 2 2:11PM ; [facility] Discussed current self-care methods/coping skills. ~Validated and normalized pt's feelings while assisting patient process recent events. ~Discussed ongoing counseling. ~Discussed lifestyle changes to address chronic illness. ~Supported patient's personal health goals ~wordfinds. walk, read, eat, enjoy my best friesnd Last Documented On 2 5:54PM ; [facility] Discussed nutritional needs teach healthy choices including fruits and vegetables Last Documented On 2 10:04AM ; [facility] Patient education about a pr oper diet Last Documented On 2 10:04AM ; [facility] Discussed concerns about exe rcise : promote physical activity Last Documented On 2 10:04AM ; [facility] Discussed nutritional needs teach healthy choices including fruits and vegetables Last Documented On 2 1:25PM ; [facility] Patient education about a pr oper diet Last Documented On 2 1:25PM ; [facility] Discussed concerns about exe rcise : promote physical activity Last Documented On 2 1:25PM ; [facility] Discussed nutritional needs teach healthy choices including fruits and vegetables Last Documented On 1 10:08AM ; [facility] Patient education about a pr oper diet Last Documented On 1 10:08AM ; [facility] Discussed concerns about exe rcise : promote physical activity Last Documented On 1 10:08AM ; [facility] Discussed nutritional needs teach healthy choices including fruits and vegetables Last Documented On 1 1:12PM ; [facility] Patient education about a pr oper diet Last Documented On 1 1:12PM ; [facility] Patient education about a pr oper diet Last Documented On 1 1:30PM ; [facility] Patient education about meal planning Last Documented On 1 1:30PM ; [facility] Education about changing eat ing habits Last Documented On 1 1:30PM ; [facility] Patient education about high fiber diet Last Documented On 1 1:30PM ; [facility] Patient education about low fat diet Last Documented On 1 1:30PM ; [facility] Patient education about low cholesterol diet Last Documented On 1 1:30PM ; [facility] Patient education about low carbohydrate diet Last Documented On 1 1:30PM ; [facility] Patient education about high protein diet Last Documented On 1 1:30PM ; [facility] Discussed concerns about exe rcise : promote physical activity Last Documented On 1 1:12PM ; [facility] Education/counseling conduct ed by pharmacist Last Documented On 0 1:39PM ; [facility] Vaccination counseling Last Documented On 0 1:39PM ; [facility] Discussed concerns about exe rcise : promote physical activity Last Documented On 0 2:16PM ; [facility] Patient goals decrease short ness of breath episodes Last Documented On 0 2:11PM ; [facility] Patient states that she uses her [...] recently Last Documented On 0 2:24PM ; [facility] Patient education about a pr oper diet Last Documented On 0 2:54PM ; [facility] Patient education about meal planning Last Documented On 0 2:54PM ; [facility] Education about changing eat ing habits Last Documented On 0 2:54PM ; [facility] Patient education about high fiber diet Last Documented On 0 2:54PM ; [facility] Patient education about low fat diet Last Documented On 0 2:54PM ; [facility] Patient education about low cholesterol diet Last Documented On 0 2:54PM ; [facility] Patient education about low carbohydrate diet Last Documented On 0 2:54PM ; [facility] Patient education about high protein diet Last Documented On 0 2:54PM ; [facility] Discussed nutritional needs teach healthy choices including fruits and vegetables Last Documented On 0 11:11AM ; [facility] Patient education about a pr oper diet Last Documented On 0 11:11AM ; [facility] Patient education about a pr oper diet Last Documented On 0 11:28AM ; [facility] Patient education about meal planning Last Documented On 0 11:28AM ; [facility] Education about changing eat ing habits Last Documented On 0 11:28AM ; [facility] Patient education about high fiber diet Last Documented On 0 11:28AM ; [facility] Patient education about low fat diet Last Documented On 0 11:28AM ; [facility] Patient education about low cholesterol diet Last Documented On 0 11:28AM ; [facility] Patient education about low carbohydrate diet Last Documented On 0 11:28AM ; [facility] Patient education about high protein diet Last Documented On 0 11:28AM ; [facility] Discussed concerns about exe rcise : promote physical activity Last Documented On 0 11:11AM ; [facility] Education/counseling conduct ed by pharmacist Last Documented On 0 1:41PM ; [facility] Patient states that she lonnie gonzalez [...] own Last Documented On 0 2:08PM ; [facility] Education/counseling conduct ed by pharmacist Last Documented On 9 1:12PM ; [facility] Patient states that she lonnie gonzalez has issues with her inhaler with the spacer. Patient did not bring in inhaler or spacer. Patient was told to bring in inhalers at next scheduled visit for pharmacist to assess inhalation technique. Patient is agreeable Last Documented On 9 1:13PM ; [facility] Patient goals Start using ch deon to help with inhaling dulera Last Documented On 9 2:40PM ; [facility] Patient states that she is g [...] vaccines Last Documented On 9 2:51PM ; [facility] Discussed nutritional needs teach healthy choices including fruits and vegetables Last Documented On 9 9:29AM ; [facility] Patient education about a pr oper diet Last Documented On 9 9:29AM ; [facility] Discussed concerns about exe rcise : promote physical activity Last Documented On 9 9:29AM ; [facility] Work Phone: 1(904) 215-536505-02-2024 Instructions Includes: Instructions for all patient encounters Instructions to patient Intervention and counseling on cessation of tobacco use, 3-10 minutes Discussed medication and nicotine replacement for tobacco cessation Last Documented On 3 8:54AM ; [facility] Intervention and counseling on cessation of tobacco use, 3-10 minutes Discussed medication and nicotine replacement for tobacco cessation Last Documented On 2 1:56PM ; [facility] Intervention and counseling on cessation of tobacco use, 3-10 minutes Last Documented On 0 2:07PM ; [facility] Return to the clinic if cond ition worsens or new symptoms arise Last Documented On 9 1:59PM ; [facility] Intervention and counseling on cessation of tobacco use, 3-10 minutes Last Documented On 9 10:39AM ; [facility] Education and Decision Aids were provided during visit for: Discussed nutritional needs teach healthy choices including fruits and vegetables Last Documented On 3 10:55AM ; [facility] Patient education about a pr oper diet Last Documented On 3 10:55AM ; [facility] Discussed concerns about exe rcise : promote physical activity Last Documented On 3 10:55AM ; [facility] Discussed nutritional needs teach healthy choices including fruits and vegetables Last Documented On 3 9:37AM ; [facility] Patient education about a pr oper diet Last Documented On 3 9:37AM ; [facility] Discussed concerns about exe rcise : promote physical activity Last Documented On 3 9:37AM ; [facility] Not requesting contraception Last Documented On 3 9:37AM ; [facility] Discussed nutritional needs teach healthy choices including fruits and vegetables Last Documented On 3 9:20AM ; [facility] Patient education about a pr oper diet Last Documented On 3 9:20AM ; [facility] Discussed concerns about exe rcise : promote physical activity Last Documented On 3 9:20AM ; [facility] Discussed nutritional needs teach healthy choices including fruits and vegetables Last Documented On 3 2:02PM ; [facility] Patient education about a pr oper diet Last Documented On 3 2:02PM ; [facility] Discussed concerns about exe rcise : promote physical activity Last Documented On 3 2:02PM ; [facility] Discussed nutritional needs teach healthy choices including fruits and vegetables Last Documented On 3 8:32AM ; [facility] Patient education about a pr oper diet Last Documented On 3 8:32AM ; [facility] Discussed concerns about exe rcise : promote physical activity Last Documented On 3 8:32AM ; [facility] Discussed nutritional needs teach healthy choices including fruits and vegetables Last Documented On 3 11:28AM ; [facility] Patient education about a pr oper diet Last Documented On 3 11:28AM ; [facility] Discussed concerns about exe rcise : promote physical activity Last Documented On 3 11:28AM ; [facility] Discussed nutritional needs teach healthy choices including fruits and vegetables Last Documented On 2 2:01PM ; [facility] Patient education about a pr oper diet Last Documented On 2 2:01PM ; [facility] Discussed concerns about exe rcise : promote physical activity Last Documented On 2 2:01PM ; [facility] Discussed nutritional needs teach healthy choices including fruits and vegetables Last Documented On 2 2:11PM ; [facility] Patient education about a pr oper diet Last Documented On 2 2:11PM ; [facility] Discussed concerns about exe rcise : promote physical activity Last Documented On 2 2:11PM ; [facility] Discussed current self-care methods/coping skills. ~Validated and normalized pt's feelings while assisting patient process recent events. ~Discussed ongoing counseling. ~Discussed lifestyle changes to address chronic illness. ~Supported patient's personal health goals ~wordfinds. walk, read, eat, enjoy my best friesnd Last Documented On 2 5:54PM ; [facility] Discussed nutritional needs teach healthy choices including fruits and vegetables Last Documented On 2 10:04AM ; [facility] Patient education about a pr oper diet Last Documented On 2 10:04AM ; [facility] Discussed concerns about exe rcise : promote physical activity Last Documented On 2 10:04AM ; [facility] Discussed nutritional needs teach healthy choices including fruits and vegetables Last Documented On 2 1:25PM ; [facility] Patient education about a pr oper diet Last Documented On 2 1:25PM ; [facility] Discussed concerns about exe rcise : promote physical activity Last Documented On 2 1:25PM ; [facility] Discussed nutritional needs teach healthy choices including fruits and vegetables Last Documented On 1 10:08AM ; [facility] Patient education about a pr oper diet Last Documented On 1 10:08AM ; [facility] Discussed concerns about exe rcise : promote physical activity Last Documented On 1 10:08AM ; [facility] Discussed nutritional needs teach healthy choices including fruits and vegetables Last Documented On 1 1:12PM ; [facility] Patient education about a pr oper diet Last Documented On 1 1:12PM ; [facility] Patient education about a pr oper diet Last Documented On 1 1:30PM ; [facility] Patient education about meal planning Last Documented On 1 1:30PM ; [facility] Education about changing eat ing habits Last Documented On 1 1:30PM ; [facility] Patient education about high fiber diet Last Documented On 1 1:30PM ; [facility] Patient education about low fat diet Last Documented On 1 1:30PM ; [facility] Patient education about low cholesterol diet Last Documented On 1 1:30PM ; [facility] Patient education about low carbohydrate diet Last Documented On 1 1:30PM ; [facility] Patient education about high protein diet Last Documented On 1 1:30PM ; [facility] Discussed concerns about exe rcise : promote physical activity Last Documented On 1 1:12PM ; [facility] Education/counseling conduct ed by pharmacist Last Documented On 0 1:39PM ; [facility] Vaccination counseling Last Documented On 0 1:39PM ; [facility] Discussed concerns about exe rcise : promote physical activity Last Documented On 0 2:16PM ; [facility] Patient goals decrease short ness of breath episodes Last Documented On 0 2:11PM ; [facility] Patient states that she uses her [...] recently Last Documented On 0 2:24PM ; [facility] Patient education about a pr oper diet Last Documented On 0 2:54PM ; [facility] Patient education about meal planning Last Documented On 0 2:54PM ; [facility] Education about changing eat ing habits Last Documented On 0 2:54PM ; [facility] Patient education about high fiber diet Last Documented On 0 2:54PM ; [facility] Patient education about low fat diet Last Documented On 0 2:54PM ; [facility] Patient education about low cholesterol diet Last Documented On 0 2:54PM ; [facility] Patient education about low carbohydrate diet Last Documented On 0 2:54PM ; [facility] Patient education about high protein diet Last Documented On 0 2:54PM ; [facility] Discussed nutritional needs teach healthy choices including fruits and vegetables Last Documented On 0 11:11AM ; [facility] Patient education about a pr oper diet Last Documented On 0 11:11AM ; [facility] Patient education about a pr oper diet Last Documented On 0 11:28AM ; [facility] Patient education about meal planning Last Documented On 0 11:28AM ; [facility] Education about changing eat ing habits Last Documented On 0 11:28AM ; [facility] Patient education about high fiber diet Last Documented On 0 11:28AM ; [facility] Patient education about low fat diet Last Documented On 0 11:28AM ; [facility] Patient education about low cholesterol diet Last Documented On 0 11:28AM ; [facility] Patient education about low carbohydrate diet Last Documented On 0 11:28AM ; [facility] Patient education about high protein diet Last Documented On 0 11:28AM ; [facility] Discussed concerns about exe rcise : promote physical activity Last Documented On 0 11:11AM ; [facility] Education/counseling conduct ed by pharmacist Last Documented On 0 1:41PM ; [facility] Patient states that she lonnie gonzalez [...] own Last Documented On 0 2:08PM ; [facility] Education/counseling conduct ed by pharmacist Last Documented On 9 1:12PM ; [facility] Patient states that she lonnie gonzalez has issues with her inhaler with the spacer. Patient did not bring in inhaler or spacer. Patient was told to bring in inhalers at next scheduled visit for pharmacist to assess inhalation technique. Patient is agreeable Last Documented On 9 1:13PM ; [facility] Patient goals Start using ch deon to help with inhaling dulera Last Documented On 9 2:40PM ; [facility] Patient states that she is g [...] vaccines Last Documented On 9 2:51PM ; [facility] Discussed nutritional needs teach healthy choices including fruits and vegetables Last Documented On 9 9:29AM ; [facility] Patient education about a pr oper diet Last Documented On 9 9:29AM ; [facility] Discussed concerns about exe rcise : promote physical activity Last Documented On 9 9:29AM ; [facility] Work Phone: 1(161) 966-332205-01-2024 Progress note* Progress note Date Encounter Last Documented by 10/02/2023 Chart Update Last documented on 10/03/2023; 8:39 AM, Karla Clark CNP; [facility] Active Problems & Conditions - J20.9 [...] once daily, 0 days, 0 refills - [place] Carbonate 150 MG Oral Capsule one capsule [...] Bipolar disorder NOS Depression Heart Attack 03/2021 [facility]. Surgical: - General surgery right shoulder [...] - Mammogram Needed satisfied 05/28/2024. [facility]04-26-2024 NoteHNO ID: [id number] Author: YANDEL DANIEL MD Service: ? Author Type: Physician Type: Progress Notes Filed: 09/28/2023 13:37 Note Text: Gail Almeida [id number] September 27, 2023 [facility] Note [...] by mouth every 12 hours as needed. riuojw-mqwrzzou-qzagvsa (ENZADYNE) 9,000-112,500- 112,500 unit capsule Take 1 [...] plan of care. Yandel Daniel [facility]04-26-2024 Nurse Note* Fabienne Deleon OCCA - 09/27/2023 9:29 AM EDT Tobacco Use: .25 packs/day, for 40 years. Types: Cigarettes Was smoking cessation packet given? Patient Declined Was a referral initiated?Patient declined. [facility]04-26-2024 Nurse Note* Fabienne Deleon OCCA - 09/27/2023 9:29 AM EDT Tobacco Use: .25 packs/day, for 40 years. Types: Cigarettes Was smoking cessation packet given? Patient Declined Was a referral initiated?Patient declined. [facility] History of Present illness Narrative* Yandel Daniel MD - 09/27/2023 9:15 AM EDT Gail Blackburn Robbiebret [id number] September 27, 2023 [facility] Note [...] by mouth every 12 hours as needed. wquggw-xsjhvesm-wpkdirh (ENZADYNE) 9,000-112,500- 112,500 unit capsule Take 1 [...] care. Yandel Daniel MD documented in this encounterUniversity [facility]04-02-2024 Miscellaneous Notes* Telephone Encounter - Radha Brice RN - 09/03/2023 7:59 AM EDT No return call for [place]. Closing encounter. * Telephone Encounter - Radha Brice RN - 08/09/2023 4:27 PM EST Called [facility] Transferred to [facility] [place] No answer phone continued ringing no voicemail available. * Telephone Encounter - Nena Rodriguez - 08/09/2023 9:42 AM EST Person Calling: Margaux - RN at [facility] Reason for Call: patient is going to need refills on levothyroxine and calcium carbonate. She was unsure if we would fill that request or her pcp Margaux: [phone] Pharmacy Name and # : [place] [phone] - [address] [facility] - [address] [place] [address] [address] [place] [phone] Pt last seen: 06/28/2023 Nena Rodriguez documented in this encounterUniversity [facility]als [facility]03-[facility]24 Discharge summary Author Reynaldo Kraft [facility] August 20, 2023 12:42pm Note Date/Time August 20, 2023 8:5 0am [facility] [address] [place] [address] Discharge Summary Signed Patient: Gail Almeida MR#: [id number] : 1955 Acct:[id number] Age/Sex: 67 / F Adm Date: 4 Loc: Room: [address] [place] [address]: Joe Davis MD Copies to: [...] 2 times total 1 time here in [facility] and another time at a different hospital Past suicide attempts: Denies previous suicidal attempts Previous medications: Reports Seroquel, [place], Zyprexa, Cogentin Alcohol and Drug Use: Denies alcohol use. Denies street drugs. 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 She [...] Important Contact Information You can call [facility] at [phone] any time day or night if you have emergent questions or question regarding discharge instructions. If at any time you are feeling an increase inyour psychiatric symptoms, call your physician or behavioral healthcare provider. If any time you have thoughts of harming yourself or others contact one of the following: Call 8 (available 24/12) Crisis Text Line (available 24/12) text 4HOPE to [phone] [facility] Hope Line (available 8 a.m. Midnight) call [phone] ([phone]) Regular Diet No Activity Restrictions Instructions: Schizoaffective Disorder (DC), [facility] DC Instructions Prescriptions: New lithium [...] mg PO DAILY fluticasone propionate 50 mcg/actuation [place],Suspension 1 spray INTRANASAL BID Rx Instructions: inhale [...] Maximo [Outside] - 09/10/23 8:40 am (A casework supervisor will call you on Saturday08/21/23 between 8:00am and 12:00pm. Psychiatry: Saturday09/10/23 at 8:40am with Dr. Galicia. ) Karla Clark, RODNEY, TARRING MACHINE OPERATOR-C [Referring] - (Contact your PCP with medical needs. ) Documented By: Reynaldo Kraft MD 08/20/23 0815 Signed By: <Electronically signed by Reynaldo Kraft MD> 08/20/23 1241 [facility] Work Phone: 1(379) 262-207203-18-2024 Progress note Author Reynaldo Kraft [facility] August 19, 2023 12:04pm Note Date/Time August 19, 2023 12: 04pm [facility] [address] [place] [address] Psychiatry Progress Note Signed Patient: Gail Almeida MR#: [id number] : 1955 Acct:[id number] Age/Sex: 67 / F Adm Date: 4 Loc: 1S Room: [address] [place] [address] Type : ADM IN Attending Dr: Joe [...] PO BID and 400 mg PO HS Shawano 300 mg PO BID. Cipro 500mg PO BID Continue to monitor mental status Encourage group participation and medication compliance Risk benefits alternatives explained Documented By: Reynaldo Kraft MD 08/19/231202 Signed By: <Electronically signed by Reynaldo Kraft MD> 08/19/23 1204 [facility] Work Phone: 1(493) 819-224303-17-2024 Progress note Author Joe rodriguez [facility] August 18, 2023 9:29am Note Date/Time August 18, 2023 9:2 9am [facility] [address] [place] [address] Psychiatry Progress Note Signed Patient: Gail Almeida MR#: [id number] : 1955 Acct:[id number] Age/Sex: 67 / F Adm Date: 4 Loc: 1S Room: 2E8145-4 Type : ADM IN Attending Dr: Joe [...] PO BID and 400 mg PO HS Shaw[place] 300 mg PO BID. Obtain lithium level. [...] signed by Joe Davis MD> 08/18/23 0929 [facility] Work Phone: 1(113) 787-607203-16-2024 Progress note Author Joe rodriguez [facility] August 17, 2023 6:38am Note Date/Time August 17, 2023 6:3 9am [facility] [address] [place] [address] Psychiatry Progress Note Signed Patient: Gail Almeida MR#: [id number] : 1955 Acct:[id number] Age/Sex: 67 / F Adm Date: 4 Loc: Room: [address] [place] [address] Type : ADM IN Attending Dr: Joe [...] 28.6 L TSH 3rd Generation 9.75 H Shawano 0.50 L Assessment/Plan Assessment/Plan (1) Schizoaffective disorder: Plan Patient denied any hallucinations this am. No SI/HI. Cogentin 0.5 mg PO BID Clonidine 0.1 mg PO Daily Zyprexa 5 mg PO Daily and 12.5 mg PO QHS Seroquel 12.5 mg PO BID and 400 mg PO HS Shaw[place] 300 mg PO BID. Obtain lithium level. [...] signed by Joe Davis MD> 08/17/23 0638 [facility] Work Phone: 1(463) 941-579403-15-2024 History and physical note Author Joe rodriguez [facility] August 16, 2023 12:20pm Note Date/Time August 16, 2023 11: 24am [facility] [address] [place] [address] Psychiatry H&P Signed Patient: Gail Almeida MR#: [id number] : 1955 Acct:[id number] Age/Sex: 67 / F Adm Date: 4 Loc: Room: [address] [place] [address] Type: ADM IN Attending Dr: Joe Davis [...] 2 times total 1 time here in [facility] and another time at a different hospital Past suicide attempts: Denies previous suicidal attempts Previous medications: Reports Seroquel, Shaw[place], Zyprexa, Cogentin Alcohol and Drug Use: Denies alcohol use. Denies street drugs. 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 Review of symptoms: Constitutional: Denies chills and [...] SI, HI, hallucination Insight: Poor Judgment: Poor [facility] Medical History Localized swelling, mass and lump, [...] oral powder 17 g PO DAILY PRN Jegmwtodjlho02/10/23 [History Confirmed 08/15/23] quetiapine 400 mg tablet,extended [...] 08/15/23] dextromethorphan-guaifenesin 30 mg-600 mg tablet extended qjqfean11 hr (Mucus DM) 1 tab PO Q12HR [...] Appearance Clear Urine pH 7.0 Ur Specific [place] 1.005 Urine Protein Negative Urine Glucose (UA) Normal Urine Ketones Negative Urine Occult Blood Negative Urine Nitrite Negative Ur Leukocyte Esterase 3+ H Urine RBC None seen Urine WBC 3-4 Shawano 0.50 L Assessment/Plan (1) Schizoaffective disorder: Plan [...] PO BID and 400 mg PO HS [place] 300 mg PO BID. Obtain lithium level. [...] signed by Joe Davis MD> 08/16/23 1220 [facility] Work Phone: 1(393) 608-281302-13-2024 History of Present illness Narrative* Dakota Mack [...] Visit: pending biopsy results documented in this encounterFreeman Cancer InstituteDqddzvmnys01-92-3956 NoteHNO ID: [id number] Author: YANDEL DANIEL MD Service: ? Author Type: Physician Type: Progress Notes Filed: 06/28/2023 15:37 Note Text: [facility] Note CC: Post op of [...] by mouth every 12 hours as needed. rtqgkc-cxtscozs-ifowaow (ENZADYNE) 9,000-112,500- 112,500 unit capsule Take 1 [...] I participated in t (more content not included)...[facility] 06-22-2023 NoteHNO ID: [id number] Author: IAN WITT MD Service: Otolaryngology Author Type: Resident Type: Progress Notes Filed: 06/22/2023 09:24 Note Text: [facility] - HEAD AND NECK SURGERY PROGRESS NOTE PAGE [phone] AFTER 1700 AND ON WEEKENDS Patient Name: [...] possible reduced renal clearance in setting of MEYSHA. Will recheck. Appreciate medicine input regarding MYESHA in setting of lithium use and multiple antipsychotic medications. - Analgesia: Tylenol, oxy, tramadol - Antibiotics: Ancef - AC: Lovenox - FEN: Regular - Wound Care: Aquaphor to incisions BID - Dispo: discharge home today Ian Witt MD Otolaryngology - Head and Neck Surgery PGY 3 Pager: [phone] Service pager: [phone] (page after 5pm and on weekends) SUBJECTIVE: [...] 0659 06/22/23 07 - 06/23/23 0659 Shift 6068-7396 0438-3083 4787-6998 24 Hour Total 2793-6499 3255-0732 5944-0402 24 Hour Total INTAKE PO(mL/kg) 840(12.92) 1290(19.85) 740(11.38) 2870(44.15) 360(5.54) 360(5.54) PO 840 9629 950 7434 360 360 Shift Total(mL/kg) 840(12.92) 1290(19.85) 740(11.38) [...] Stage 2 chronic kidney disease Goiter POA: [facility]01-19-2024 NoteHNO ID: [id number] Author: CHRIS LIVINGSTON RN Service: Care Management Author Type: Registered Nurse Type: Care Mgt Progress Note Filed: 06/21/2023 15:12 Note Text: CARE MANAGEMENT PROGRESS NOTE SERVICE DATE: 06/21/2023 SERVICE TIME: 2:26 PM LOS: 0 days Medically cleared for discharge back to Assisted Living [address] [address] ([phone]) CM spoke with [facility] no long distance transport today or this weekend due to the weather. CM spoke with nurse Karma at the [facility] she will see if they can get transport and will call CM back. Addendum: 2:50 PM Prachi the nurse from [place] called back they have no transport either: secure message sent to team. Waiting for response. Addendum: 3:10 PM CM spoke with Prachi again stated they have their own van that will pick the patient up at 11:00 AM Thursday 06/22, the batch mixing truck driver will call the CM when they arrive. SIGNATURE: Chris Livingston RN PATIENT NAME: Gail Almeida DATE: June 21, 2023 TIME: 2:26 PM PAGER/CONTACT #: N/[facility]01-19-2024 NoteHNO ID: [id number] Author: GEMA CARVALHO MD Service: Endocrinology Author Type: Fellow Type: Plan of Care Filed: 06/21/2023 14:11 Note Text: Paged primary team about the consult to endocrine. Per primary they are discharging patient and would follow up outpatient. Was asked to D/C consult per , ENT resident.[facility] 06-21-2023 NoteHNO ID: [id number] Author: JANIS GATES MD Service: Otolaryngology Author Type: Resident Type: Progress Notes Filed: 06/21/2023 10:11 Note Text: [facility] - HEAD AND NECK SURGERY PROGRESS NOTE PAGE [phone] AFTER 1700 AND ON WEEKENDS Patient Name: [...] G Janis Gates, PGY-2, Otolaryngology Service Pager: [phone] Pager: [phone] June 19, 2023 9:13 AM For questions after 5 PM and on weekends, please page [phone]. SUBJECTIVE: No acute events overnight. Pain well-controlled [...] 0659 06/21/23 0700 - 06/22/23 0659 Shift 3001-3880 4399-6835 7942-6534 24 Hour Total 1783-4072 6973-1280 8676-5191 24 Hour Total INTAKE PO 720 1395 648 5961 480 480 PO 720 3273 472 7331 480 480 IV 100 100 100 300 Volume (mL) (ceFAZolin iv piggyback 2 g in D5W (iso-osmotic) 100 mL (ANCEF)) 100 100 100 300 Shift Total 820 5381 378 0293 480 480 OUTPUT Urine 1050 0414 239 8678 Void (ml) 1050 3117 203 9769 Urine Not Saved. 2 x 2 x 2 x 2 x Tubes 15 10 7.5 32.5 Drain/Tube Output (Drain/Tube 06/18/23 1449 [facility] [place]) 15 10 7.5 [...] BID w MEALS famotidine (more content not included)...[facility]01-18-2024 NoteHNO ID: [id number] Author: JANIS GATES MD Service: Otolaryngology Author Type: Resident Type: Progress Notes Filed: 06/20/2023 07:09 Note Text: [facility] - HEAD AND NECK SURGERY PROGRESS NOTE PAGE [phone] AFTER 1700 AND ON WEEKENDS Patient Name: [...] output q8h - Dispo: please transfer to [facility] Janis Gates, PGY-2, Otolaryngology Service Pager: [phone] Pager: [phone] June 19, 2023 9:13 AM For questions after 5 PM and on weekends, please page [phone]. SUBJECTIVE: No acute events overnight. Pain well-controlled [...] 0659 06/20/23 0700 - 06/21/23 0659 Shift 0578-5409 6973-8070 4125-7708 24 Hour Total 4134-1035 4122-8134 3859-9049 24 Hour Total INTAKE PO 4320 230 751 9755 PO 4320 288 951 5160 IV 100 100 Volume (mL) (ceFAZolin iv piggyback 2 g in D5W (iso-osmotic) 100 mL (ANCEF)) 100 100 Shift Total 4320 632 491 4740 OUTPUT Urine 500 6190 006 5561 Void (ml) 500 9499 249 2178 Urine Not Saved. 2 x 2 x Tubes 50 27.5 17.5 95 Drain/Tube Output (Drain/Tube 06/18/23 1449 [facility]) 50 27.5 17.5 [...] Lozenge (CHLORASEPTIC) 1 Lozeng (more content not included)...[facility]01-17-2024 NoteHNO ID: [id number] Author: JANIS GATES MD Service: Otolaryngology Author Type: Resident Type: Progress Notes Filed: 06/19/2023 09:16 Note Text: [facility] OT[facility] - HEAD AND NECK SURGERY PROGRESS NOTE PAGE [phone] AFTER 1700 AND ON WEEKENDS Patient Name: [...] Dispo: MErvin Gates, PGY-2, Otolaryngology Service Pager: [phone] Pager: [phone] June 19, 2023 9:13 AM For questions after 5 PM and on weekends, please page [phone]. SUBJECTIVE: No acute events overnight. Pain well-controlled [...] 0659 06/19/23 07 - 06/20/23 0659 Shift 1149-3910 1122-9964 9244-8157 24 Hour Total 1070-6512 3902-5620 9617-3576 24 Hour Total INTAKE PO 120 490 610 360 360 PO 120 490 610 360 360 IV 1100 0546 544 2845 OR Crystalloid intake (mL) 1100 1100 Volume (mL) (ceFAZolin iv piggyback 2 g in D5W (iso-osmotic) 100 mL (ANCEF)) 100 100 Volume (mL) (ceFAZolin iv piggyback 2 g in D5W (iso-osmotic) 100 mL (ANCEF)) 50 100 150 Volume (mL) (lactated ringers iv infusion) 125 125 Volume (mL) (lactated ringers iv infusion) 5940 640 3293 Volume (mL) (NaCl 0.9% iv infusion) 468 500 968 Shift Total 1100 1963 1090 4153 360 360 OUTPUT Urine 302 428 6477 300 300 Void (ml) 604 355 7913 300 300 Urine Incontinence/Not Saved 1 x 1 x Urine Not Saved. 1 x 1 x Tubes 40 17.5 57.5 Drain/Tube Output (Drain/Tube 06/18/23 1449 [facility]) 40 17.5 57.5 [...] H PRN Or oxyCOD (more content not included)...[facility]01-17-2024 Note HNO ID: [id number] Author: JONATHAN VALENCIA RN Service: ? Author Type: Registered Nurse Type: Nursing Progress Note Filed: 06/19/2023 00:12 Note Text: Per Dr. Mendoza, draw PTH and ionized calcium together at 4 a.m.[facility]01-16-2024 NoteHNO ID: [id number] Author: JANETH VARGAS DO Service: ? Author [...] June 18, 2023 TIME: 12:58 PM CSN: [id number] Citizens Hospital01-16-2024 NoteHNO ID: [id number] Author: JANETH VARGAS DO Service: ? Author [...] June 18, 2023 TIME: 12:45 PM CSN: [id number] Citizens Hospital12-28-2023 NoteHNO ID: [id number] Author: Yandel Daniel MD Service: ? Author Type: Physician Type: Progress Notes Filed: 05/30/2023 2:42 PM Note Text: [facility] Note CC: Preoperative appointment HPI: [...] by mouth every 12 hours as needed. htomac-xgqtvmso-nztuxrp (ENZADYNE) 9,000-112,500- 112,500 unit capsule Take 1 [...] total thyroidectomy as scheduled (more content not included)...[facility]12-28-2023 NoteHNO ID: [id number] Author: Alea Smith RT(R) Service: Radiology Author [...] BY: RT Mendoza(R) May 30, 2023 10:19 AMIntermountain [id number] Evaluation note Includes: Assessments for all patient encounters Findings Encounter Date [D48.5 - Neoplasm of uncerta in behavior of skin] skin neoplasm of uncertain behavior Medical Established Patient with Karla Clark CLINICAL PHARMACY TECHNICIAN 05/22/2023 Last Documented On 3 1:30PM ; [facility] [Z68.24 - Body mass index [B NH] 24.0-24.9, adult] assessment of body mass index Medical Established Patient with Karla Clark CLINICAL PHARMACY TECHNICIAN 05/22/2023 Last Documented On 3 1:30PM ; [facility] Assessment of tobacco use Medical Establ ished Patient with Karla Clark CLINICAL PHARMACY TECHNICIAN 05/22/2023 Last Documented On 3 1:30PM ; [facility] [R30.0 - Dysuria] Dysuria Chart Update with Gary Clark CLINICAL PHARMACY TECHNICIAN 03/21/2023 Last Documented On 3 11:27AM ; [facility] [Z12.39 - Encounter for othe r screening for malignant neoplasm of breast] visit for: screening for malignant breast neoplasm Medical Established Patient with Aaron Whitaker CLINICAL PHARMACY TECHNICIAN 02/28/2023 Last Documented On 3 9:51AM ; [facility] [Z68.24 - Body mass index [B NH] 24.0-24.9, adult] assessment of body mass index Medical Established Patient with Aaron Whitaker CLINICAL PHARMACY TECHNICIAN 02/28/2023 Last Documented On 3 9:51AM ; [facility] Assessment of tobacco use Medical Establ ished Patient with Aaron Whitaker CLINICAL PHARMACY TECHNICIAN 02/28/2023 Last Documented On 3 9:51AM ; [facility] Chronic obstructive pulmonary disease Me dical Established Patient with Aaron Whitaker CLINICAL PHARMACY TECHNICIAN 02/28/2023 Last Documented On 3 9:51AM ; [facility] [J20.9 - Acute bronchitis, unspecified] acute bronchitis Medical Established Patient with Karla Clark CLINICAL PHARMACY TECHNICIAN 11/19/2022 Last Documented On 3 10:15AM ; [facility] [M79.621 - Pain in right upp er arm] pain in upper arm Medical Established Patient with Karla Clark CLINICAL PHARMACY TECHNICIAN 11/19/2022 Last Documented On 3 10:15AM ; [facility] [Z68.23 - Body mass index [B NH] 23.0-23.9, adult] assessment of body mass index Medical Established Patient with Karla Clark CLINICAL PHARMACY TECHNICIAN 11/19/2022 Last Documented On 3 10:15AM ; [facility] [M79.601 - Pain in right arm ] pain in right arm Medical Established Patient with Karla Clark CLINICAL PHARMACY TECHNICIAN 09/18/2022 Last Documented On 3 2:33PM ; [facility] [Z68.24 - Body mass index [B NH] 24.0-24.9, adult] assessment of body mass index Medical Established Patient with Karla Clark CLINICAL PHARMACY TECHNICIAN 09/18/2022 Last Documented On 3 2:33PM ; [facility] Assessment of tobacco use Medical Establ ished Patient with Karal Clark CLINICAL PHARMACY TECHNICIAN 09/18/2022 Last Documented On 3 2:33PM ; [facility] [M25.569 - Pain in unspecifi ed knee] arthralgia of knee / patella / tibia / fibula Medical Established Patient with Karla Clark CLINICAL PHARMACY TECHNICIAN 08/27/2022 Last Documented On 3 9:20AM ; [facility] [Z68.24 - Body mass index [B NH] 24.0-24.9, adult] assessment of body mass index Medical Established Patient with Karla Clark CLINICAL PHARMACY TECHNICIAN 08/27/2022 Last Documented On 3 9:20AM ; [facility] Intervention and counseling on cessation of tobacco use, 3-10 minutes Discussed medication and nicotine replacement for tobacco cessation Medical Established Patient with Karla Clark CLINICAL PHARMACY TECHNICIAN 08/27/2022 Last Documented On 3 9:20AM ; [facility] Nicotine dependence Medical Established Patient with Karla Clark CLINICAL PHARMACY TECHNICIAN 08/27/2022 Last Documented On 3 9:20AM ; [facility] Visit for routine adult H&P without abnormal findings Medical Established Patient with Karla Clark CLINICAL PHARMACY TECHNICIAN 08/27/2022 Last Documented On 3 9:20AM ; [facility] [H92.02 - Otalgia, left ear] earache Med ical Established Patient with Karla Clark CLINICAL PHARMACY TECHNICIAN 06/18/2022 Last Documented On 3 12:11PM ; [facility] [M79.604 - Pain in right leg ] pain in right leg Medical Established Patient with Karla Clark CLINICAL PHARMACY TECHNICIAN 06/18/2022 Last Documented On 3 12:11PM ; [facility] [Z68.24 - Body mass index [B NH] 24.0-24.9, adult] assessment of body mass index Medical Established Patient with Karla Clark CLINICAL PHARMACY TECHNICIAN 06/18/2022 Last Documented On 3 12:11PM ; [facility] Assessment of tobacco use Medical Establ ished Patient with Karla Clark CLINICAL PHARMACY TECHNICIAN 06/18/2022 Last Documented On 3 12:11PM ; [facility] Diabetes Risk Test Score was four score 06/18/2022 Medical Established Patient with Karla Clark CLINICAL PHARMACY TECHNICIAN 06/18/2022 Last Documented On 3 12:11PM ; [facility] Schizoaffective disorder Established Patient with Yin Feliz LPCC-S 03/20/2022 Last Documented On 2 12:13AM ; [facility] No cough Medical Established Patient with Karla Floresen CLINICAL PHARMACY TECHNICIAN 12/20/2021 Last Documented On 2 3:12PM ; [facility] Visit for: screening for hum an immunodeficiency virus Medical Established Patient with Karla Clark CLINICAL PHARMACY TECHNICIAN 12/20/2021 Last Documented On 2 3:12PM ; [facility] Z68.24 - Body mass index [BM I] 24.0-24.9, adult Medical Established Patient with Karla Floresen CLINICAL PHARMACY TECHNICIAN 12/20/2021 Last Documented On 2 3:12PM ; [facility] Bipolar disorder NOS Established Patient with Yin Feliz LPCC-S 11/03/2021 Last Documented On 2 7:00PM ; [facility] Bipolar schizoaffective disorder BH Esta blished Patient with Yin Feliz LPCC-S 11/03/2021 Last Documented On 2 7:00PM ; [facility] PLAN Medical Established Patient with Don Pino MD 11/03/2021 Last Documented On 2 10:40AM ; [facility] Abnormal electrocardiogram Medical Estab lished Patient with Don Pino MD 11/03/2021 Last Documented On 2 10:40AM ; [facility] Z68.24 - Body mass index [BM I] 24.0-24.9, adult Medical Established Patient with Don Pino MD 11/03/2021 Last Documented On 2 10:40AM ; [facility] Cough Medical Established Patient with Karla Clark CLINICAL PHARMACY TECHNICIAN 07/28/2021 Last Documented On 2 2:01PM ; [facility] Intervention and counseling on cessation of tobacco use, 3-10 minutes Discussed medication and nicotine replacement for tobacco cessation Medical Established Patient with Karlajulius Clark CLINICAL PHARMACY TECHNICIAN 07/28/2021 Last Documented On 2 2:01PM ; [facility] Nicotine dependence Medical Established Patient with Karla Amber CLINICAL PHARMACY TECHNICIAN 07/28/2021 Last Documented On 2 2:01PM ; [facility] Z68.24 - Body mass index [BM I] 24.0-24.9, adult Medical Established Patient with Karla Clark CLINICAL PHARMACY TECHNICIAN 07/28/2021 Last Documented On 2 2:01PM ; [facility] Assess Colon screening Medical Established Patie nt with Karla Clark CLINICAL PHARMACY TECHNICIAN 05/08/2021 Last Documented On 1 10:59AM ; [facility] Diabetes Risk Test Score was four score 05/08/2021 Medical Established Patient with Karla Clark CLINICAL PHARMACY TECHNICIAN 05/08/2021 Last Documented On 1 10:59AM ; [facility] Routine adult history and ph ysical (18-64 yrs) without abnormal findings Medical Established Patient with Karla Amber CLINICAL PHARMACY TECHNICIAN 05/08/2021 Last Documented On 1 10:59AM ; [facility] Z68.24 - Body mass index [BM I] 24.0-24.9, adult Medical Established Patient with Karla Amber CLINICAL PHARMACY TECHNICIAN 05/08/2021 Last Documented On 1 10:59AM ; [facility] Z68.24 - Body mass index [BM I] 24.0-24.9, adult Medical Established Patient with Karla Amber CLINICAL PHARMACY TECHNICIAN 06/17/2020 Last Documented On 1 10:30AM ; [facility] Overweight Medical Established Patient with Karla Amber CLINICAL PHARMACY TECHNICIAN 06/06/2020 Last Documented On 1 2:06PM ; [facility] Z68.25 - Body mass index [BM I] 25.0-25.9, adult Medical Established Patient with Karlajulius Clark CLINICAL PHARMACY TECHNICIAN 06/06/2020 Last Documented On 1 2:06PM ; [facility] Antiasthmatics [facility] with Karla Amber CLINICAL PHARMACY TECHNICIAN 05/06/2020 Last Documented On 0 7:27PM ; [facility] Assessment of tobacco use [facility] with Karla Amber CLINICAL PHARMACY TECHNICIAN 05/06/2020 Last Documented On 0 7:27PM ; [facility] Body mass index [facility] with Karlajulius Floresen CLINICAL PHARMACY TECHNICIAN 05/06/2020 Last Documented On 0 7:27PM ; [facility] Chronic obstructive pulmonary disease S [facility]-New with Karlajulius Floresen [facility] 05/06/2020 Last Documented On 0 7:27PM ; [facility] Overweight [facility] Asthma Clinic-New with Karlajulius Floresen CLINICAL PHARMACY TECHNICIAN 05/06/2020 Last Documented On 0 7:27PM ; [facility] Z11.4 - Encounter for screen ing for human immunodeficiency virus [HIV] [facility] Asthma Clinic-New with Karla Clark CLINICAL PHARMACY TECHNICIAN 05/06/2020 Last Documented On 0 7:27PM ; [facility] Diabetes Risk Test Score was three score 03/31/2020 Medical Established Patient with Krala Clark [facility] 03/31/2020 Last Documented On 0 3:22PM ; [facility] Overweight Medical Established Patient with Karla Amber CLINICAL PHARMACY TECHNICIAN 03/31/2020 Last Documented On 0 3:22PM ; [facility] Z68.25 - Body mass index [BM I] 25.0-25.9, adult Medical Established Patient with Karlajulius Floresen CLINICAL PHARMACY TECHNICIAN 03/31/2020 Last Documented On 0 3:22PM ; [facility] Encounter for Immunization Nurse Visit with Gary Clark CLINICAL PHARMACY TECHNICIAN 03/14/2020 Last Documented On 0 5:11PM ; [facility] Body mass index Medical Established Patient with Karla Amber CLINICAL PHARMACY TECHNICIAN 02/26/2020 Last Documented On 0 1:18PM ; [facility] Overweight Medical Established Patient with Karla Amber CLINICAL PHARMACY TECHNICIAN 02/26/2020 Last Documented On 0 1:18PM ; [facility] Overweight Medical Established Patient with Karla Amber CLINICAL PHARMACY TECHNICIAN 07/23/2019 Last Documented On 0 2:33PM ; [facility] Z68.27 - Body mass index (BM I) 27.0-27.9, adult Medical Established Patient with Karla Amber CLINICAL PHARMACY TECHNICIAN 07/23/2019 Last Documented On 0 2:33PM ; [facility] Occasional asthma CPS- Asthma Clinic- F/U with A imjulius Floresen CLINICAL PHARMACY TECHNICIAN 06/05/2019 Last Documented On 0 7:04PM ; [facility] Overweight C[facility]- Asthma Clinic- F/U with Aim ee Amber CLINICAL PHARMACY TECHNICIAN 06/05/2019 Last Documented On 0 7:04PM ; [facility] Z68.27 - Body mass index (BM I) 27.0-27.9 adult CPS- Asthma Clinic- F/U with Karlajulius Floresen CLINICAL PHARMACY TECHNICIAN 06/05/2019 Last Documented On 0 7:04PM ; [facility] Occasional asthma CPS Med Review with Karla Sandra en CLINICAL PHARMACY TECHNICIAN 04/23/2019 Last Documented On 9 4:01PM ; [facility] Overweight CPS Med Review with Karla Amber CLINICAL PHARMACY TECHNICIAN 04/23/2019 Last Documented On 9 4:01PM ; [facility] Z68.27 - Body mass index (BM I) 27.0-27.9 adult CPS Med Review with Karla Amber CLINICAL PHARMACY TECHNICIAN 04/23/2019 Last Documented On 9 4:01PM ; [facility] Acute pharyngitis Medical Established Patient wi th Brandy Warren CLINICAL PHARMACY TECHNICIAN 04/15/2019 Last Documented On 9 12:31PM ; [facility] Asthmatic bronchitis with ac [place] exacerbation Medical Established Patient with Brandy Warren CLINICAL PHARMACY TECHNICIAN 04/15/2019 Last Documented On 9 12:31PM ; [facility] Fagerstrom Score was two Medical Established Pat ient with Brandy Serranoer CLINICAL PHARMACY TECHNICIAN 04/15/2019 Last Documented On 9 12:31PM ; [facility] PHQ-9: total score was three 04/15/2019 Medical Established Patient with Brandy Warren CLINICAL PHARMACY TECHNICIAN 04/15/2019 Last Documented On 9 12:31PM ; [facility] Body mass index Medical Established Patient with Karlajulius Floresen CLINICAL PHARMACY TECHNICIAN 03/05/2019 Last Documented On 9 10:27AM ; [facility] Diabetes Risk Test Score was three score Medical Established Patient with Karla Amber CLINICAL PHARMACY TECHNICIAN 03/05/2019 Last Documented On 9 10:27AM ; [facility] Overweight Medical Established Patient with Karla Amber CLINICAL PHARMACY TECHNICIAN 03/05/2019 Last Documented On 9 10:27AM ; [facility] Z68.28 - Body mass index (BM I) 28.0-28.9, adult Medical Established Patient with Karla Amber CLINICAL PHARMACY TECHNICIAN 12/22/2018 Last Documented On 9 10:32AM ; [facility] Assess routine adult history and physical (18 - 64 yrs) Medical Established Patient with Karla Amber CLINICAL PHARMACY TECHNICIAN 11/06/2018 Last Documented On 9 2:26PM ; [facility] Overweight Medical Established Patient with Karla Amber CLINICAL PHARMACY TECHNICIAN 11/06/2018 Last Documented On 9 2:26PM ; [facility] Z68.28 - Body mass index (BM I) 28.0-28.9, adult Medical Established Patient with Karla Amber CLINICAL PHARMACY TECHNICIAN 11/06/2018 Last Documented On 9 2:26PM ; [facility] Assess dysphagia Medical Established Patient wit h Karla Amber CLINICAL PHARMACY TECHNICIAN 09/11/2018 Last Documented On 9 10:53AM ; [facility] Assess routine adult history and physical (18 - 64 yrs) Medical Established Patient with Karla Amber CLINICAL PHARMACY TECHNICIAN 09/11/2018 Last Documented On 9 10:53AM ; [facility] Assess primary insomnia with sleep apnea Medical Established Patient with Karla Amber CLINICAL PHARMACY TECHNICIAN 09/04/2018 Last Documented On 9 2:23PM ; [facility] Assess routine adult history and physical (18 - 64 yrs) Medical Established Patient with Karla Clark CLINICAL PHARMACY TECHNICIAN 09/04/2018 Last Documented On 9 2:23PM ; [facility] Overweight Medical Established Patient with Karla Clark CLINICAL PHARMACY TECHNICIAN 09/04/2018 Last Documented On 9 2:23PM ; [facility] Z68.29 - Body mass index (BM I) 29.0-29.9, adult Medical Established Patient with Karla Clark CLINICAL PHARMACY TECHNICIAN 09/04/2018 Last Documented On 9 2:23PM ; [facility] Assess vaginal candidiasis Medical Estab lished Patient with Karla Clark CLINICAL PHARMACY TECHNICIAN 07/31/2018 Last Documented On 9 2:12PM ; [facility] Work Phone: 1(495) 142-617912-20-2023 History general Narrative - Reported Includes: Medical History in patient's chart Description Last Updated No previous hospitalizations 05/22/2023 Last Documented On 3 1:30PM ; [facility] 1 previous live (s) 02/28/2023 Last Documented On 3 9:51AM ; [facility] Previously 1 time(s) 02/28/2023 Last Documented On 3 9:51AM ; [facility] Currently nursing 11/03/2021 Last Documented On 2 7:00PM ; [facility] status unknown for sexually tra nsmitted infection 11/03/2021 Last Documented On 2 7:00PM ; [facility] 11/03/2021 Last Documented On 2 7:00PM ; [facility] Not planning to have a baby in the next 12 months 11/03/2021 Last Documented On 2 7:00PM ; [facility] Heart Attack 03/2021 [facility] 1 07/09/2020 Last Documented On 1 10:59AM ; [facility] A recent immunization for flu 05/06/2020 Last Documented On 0 7:27PM ; [facility] Patient gave verbal consent for teleheal th 08/31/2019 Last Documented On 0 9:21AM ; [facility] History of abnormal electrocardiogram Last Documented On 9 2:12PM ; [facility] History of asthma 07/31/2018 Last Documented On 9 2:12PM ; [facility] History of cardiovascular disorder 07/31 Last Documented On 9 2:12PM ; [facility] History of respiratory disorder 07/31/19 19 Last Documented On 9 2:12PM ; [facility] History of bipolar disorder NOS 07/31/19 19 Last Documented On 9 2:12PM ; [facility] History of depression 07/31/2018 Last Documented On 9 2:12PM ; [facility] History of psychiatric disorders 019 Last Documented On 9 2:12PM ; [facility] Work Phone: 1(235) 109-695712-20-2023 History general Narrative - Reported Includes: Medical History in patient's chart Description Last Updated No previous hospitalizations 05/22/2023 Last Documented On 3 1:30PM ; [facility] 1 previous live (s) 02/28/2023 Last Documented On 3 9:51AM ; [facility] Previously 1 time(s) 02/28/2023 Last Documented On 3 9:51AM ; [facility] Currently nursing 11/03/2021 Last Documented On 2 7:00PM ; [facility] status unknown for sexually tra nsmitted infection 11/03/2021 Last Documented On 2 7:00PM ; [facility] 11/03/2021 Last Documented On 2 7:00PM ; [facility] Not planning to have a baby in the next 12 months 11/03/2021 Last Documented On 2 7:00PM ; [facility] Heart Attack 03/2021 [facility] 1 07/09/2020 Last Documented On 1 10:59AM ; [facility] A recent immunization for flu 05/06/2020 Last Documented On 0 7:27PM ; [facility] Patient gave verbal consent for teleheal th 08/31/2019 Last Documented On 0 9:21AM ; [facility] History of abnormal electrocardiogram Last Documented On 9 2:12PM ; [facility] History of asthma 07/31/2018 Last Documented On 9 2:12PM ; [facility] History of cardiovascular disorder 07/31 Last Documented On 9 2:12PM ; [facility] History of respiratory disorder 07/31/19 19 Last Documented On 9 2:12PM ; [facility] History of bipolar disorder NOS 07/31/19 19 Last Documented On 9 2:12PM ; [facility] History of depression 07/31/2018 Last Documented On 9 2:12PM ; [facility] History of psychiatric disorders 019 Last Documented On 9 2:12PM ; [facility] Work Phone: 1([phone]) 395-136912-20-2023 History general Narrative - Reported Includes: Medical History in patient's chart Description Last Updated No previous hospitalizations 05/22/2023 Last Documented On 3 1:30PM ; [facility] 1 previous live (s) 02/28/2023 Last Documented On 3 9:51AM ; [facility] Previously 1 time(s) 02/28/2023 Last Documented On 3 9:51AM ; [facility] Currently nursing 11/03/2021 Last Documented On 2 7:00PM ; [facility] status unknown for sexually tra nsmitted infection 11/03/2021 Last Documented On 2 7:00PM ; [facility] 11/03/2021 Last Documented On 2 7:00PM ; [facility] Not planning to have a baby in the next 12 months 11/03/2021 Last Documented On 2 7:00PM ; [facility] Heart Attack 03/2021 [facility] 1 07/09/2020 Last Documented On 1 10:59AM ; [facility] A recent immunization for flu 05/06/2020 Last Documented On 0 7:27PM ; [facility] Patient gave verbal consent for teleheal th 08/31/2019 Last Documented On 0 9:21AM ; [facility] History of abnormal electrocardiogram Last Documented On 9 2:12PM ; [facility] History of asthma 07/31/2018 Last Documented On 9 2:12PM ; [facility] History of cardiovascular disorder 07/31 Last Documented On 9 2:12PM ; [facility] History of respiratory disorder 07/31/19 19 Last Documented On 9 2:12PM ; [facility] History of bipolar disorder NOS 07/31/19 19 Last Documented On 9 2:12PM ; [facility] History of depression 07/31/2018 Last Documented On 9 2:12PM ; [facility] History of psychiatric disorders 019 Last Documented On 9 2:12PM ; [facility] Work Phone: [phone]) 852-409712-20-2023 History general Narrative - Reported Includes: Medical History in patient's chart Description Last Updated No previous hospitalizations 05/22/2023 Last Documented On 3 1:30PM ; [facility] 1 previous live (s) 02/28/2023 Last Documented On 3 9:51AM ; [facility] Previously 1 time(s) 02/28/2023 Last Documented On 3 9:51AM ; [facility] Currently nursing 11/03/2021 Last Documented On 2 7:00PM ; [facility] status unknown for sexually tra nsmitted infection 11/03/2021 Last Documented On 2 7:00PM ; [facility] 11/03/2021 Last Documented On 2 7:00PM ; [facility] Not planning to have a baby in the next 12 months 11/03/2021 Last Documented On 2 7:00PM ; [facility] Heart Attack 03/2021 [facility] 1 07/09/2020 Last Documented On 1 10:59AM ; [facility] A recent immunization for flu 05/06/2020 Last Documented On 0 7:27PM ; [facility] Patient gave verbal consent for teleheal th 08/31/2019 Last Documented On 0 9:21AM ; [facility] History of abnormal electrocardiogram Last Documented On 9 2:12PM ; [facility] History of asthma 07/31/2018 Last Documented On 9 2:12PM ; [facility] History of cardiovascular disorder 07/31 Last Documented On 9 2:12PM ; [facility] History of respiratory disorder 07/31/19 19 Last Documented On 9 2:12PM ; [facility] History of bipolar disorder NOS 07/31/19 19 Last Documented On 9 2:12PM ; [facility] History of depression 07/31/2018 Last Documented On 9 2:12PM ; [facility] History of psychiatric disorders 019 Last Documented On 9 2:12PM ; [facility] Work Phone: 1(872) 469-423912-20-2023 History general Narrative - Reported Includes: Medical History in patient's chart Description Last Updated No previous hospitalizations 05/22/2023 Last Documented On 3 1:30PM ; [facility] 1 previous live (s) 02/28/2023 Last Documented On 3 9:51AM ; [facility] Previously 1 time(s) 02/28/2023 Last Documented On 3 9:51AM ; [facility] Currently nursing 11/03/2021 Last Documented On 2 7:00PM ; [facility] status unknown for sexually tra nsmitted infection 11/03/2021 Last Documented On 2 7:00PM ; [facility] 11/03/2021 Last Documented On 2 7:00PM ; [facility] Not planning to have a baby in the next 12 months 11/03/2021 Last Documented On 2 7:00PM ; [facility] Heart Attack 03/2021 [facility] 1 07/09/2020 Last Documented On 1 10:59AM ; [facility] A recent immunization for flu 05/06/2020 Last Documented On 0 7:27PM ; [facility] Patient gave verbal consent for teleheal th 08/31/2019 Last Documented On 0 9:21AM ; [facility] History of abnormal electrocardiogram Last Documented On 9 2:12PM ; [facility] History of asthma 07/31/2018 Last Documented On 9 2:12PM ; [facility] History of cardiovascular disorder 07/31 Last Documented On 9 2:12PM ; [facility] History of respiratory disorder 07/31/19 19 Last Documented On 9 2:12PM ; [facility] History of bipolar disorder NOS 07/31/19 19 Last Documented On 9 2:12PM ; [facility] History of depression 07/31/2018 Last Documented On 9 2:12PM ; [facility] History of psychiatric disorders 019 Last Documented On 9 2:12PM ; [facility] Work Phone: [phone] 389-389812-20-2023 History general Narrative - Reported Includes: Medical History in patient's chart Description Last Updated No previous hospitalizations 05/22/2023 Last Documented On 3 1:30PM ; [facility] 1 previous live (s) 02/28/2023 Last Documented On 3 9:51AM ; [facility] Previously 1 time(s) 02/28/2023 Last Documented On 3 9:51AM ; [facility] Currently nursing 11/03/2021 Last Documented On 2 7:00PM ; [facility] status unknown for sexually tra nsmitted infection 11/03/2021 Last Documented On 2 7:00PM ; [facility] 11/03/2021 Last Documented On 2 7:00PM ; [facility] Not planning to have a baby in the next 12 months 11/03/2021 Last Documented On 2 7:00PM ; [facility] Heart Attack 03/2021 [facility] 1 07/09/2020 Last Documented On 1 10:59AM ; [facility] A recent immunization for flu 05/06/2020 Last Documented On 0 7:27PM ; [facility] Patient gave verbal consent for teleheal th 08/31/2019 Last Documented On 0 9:21AM ; [facility] History of abnormal electrocardiogram Last Documented On 9 2:12PM ; [facility] History of asthma 07/31/2018 Last Documented On 9 2:12PM ; [facility] History of cardiovascular disorder 07/31 Last Documented On 9 2:12PM ; [facility] History of respiratory disorder 07/31/19 19 Last Documented On 9 2:12PM ; [facility] History of bipolar disorder NOS 07/31/19 19 Last Documented On 9 2:12PM ; [facility] History of depression 07/31/2018 Last Documented On 9 2:12PM ; [facility] History of psychiatric disorders 019 Last Documented On 9 2:12PM ; [facility] Work Phone: 1(906) 523-987212-20-2023 Progress note* Progress note Date Encounter Last Documented by 05/22/2023 Medical Established Patient Last documented on 05/22/2023; 1:30 PM, Karla Clark CNP; [facility] Active Problems & Conditions - [...] list reviewed Presents s/p pneumonia stay at [facility] . she having neck mass removed at [facility] in june Current Medication - Acetaminophen ER [...] EVERY DAY, 30 days, 11 refills - [place] Carbonate 150 MG Oral Capsule Capsule, conventional [...] Bipolar disorder NOS Depression Heart Attack 03/2021 [facility]. Surgical: - General surgery right shoulder [...] BP-Sitting R138/89 mmHg BP Cuff SizeLarge Pulse Rate-Fkndneu20 bpm Vzkpnd33 in Lbydhb407 lbs 9.6 oz Body Mass Index24.8 kg/m2 Body Surface Area1.7 m2 Oxygen Jcmisbrhts98 % Vital Signs: - Systolic blood pressure [...] + 0 pt : Not at all. [facility]11-09-2023 NoteHNO ID: [id number] Author: Yandel Daniel MD Service: ? Author [...] details please see patient questionnaire scanned into [employer]. History: No past medical history on file. [...] refer to the patient questionnaire scanned into [employer]. Physical Exam: Vitals - There were no [...] will involve endocrinology for (more content not included)...[facility]10-26-2023 Discharge summary Author Joe rodriguez [facility] March 28, 2023 1:30pm Note Date/Time March 28, 2023 1 :30pm [facility] [address] [place] [address] Discharge Summary Signed Patient: Gail Almeida MR#: [id number] : 1955 Acct:[id number] Age/Sex: 67 / F Adm Date: 3 Loc: Room: [address] [place] [address]: Joe aDvis MD Copies to: NON STAFF Joe Davis [...] disruptive behavior at her assisted living facility, [facility]. Patient was previously admitted earlierthis month due to a medication miscommunication regarding her Seroquel in which she stopped taking the medication and appeared to be in a manic episode. Cardiology reports indicate her QTc is not prolonged and Seroquel could be continued safely. She was scheduled to receive her Risperdal Consta 25 mg/2ml on03/05/23 but the MAR from [facility] did not indicate whether she [...] Plan for next Risperdal Consta injection at retirement facility 04/01/23 then continue Q2W. Physical exam: [...] Important Contact Information You can call [facility] at [phone] any time day or night if you have emergent questions or question regarding discharge instructions. If at any time you are feeling an increase inyour psychiatric symptoms, call your physician or behavioral healthcare provider. If any time you have thoughts of harming yourself or others contact one of the following: Call 8 (available 24/12) Crisis Text Line (available 24/12) text 4HOPE to [phone] [facility] Hope Line (available 8 a.m. Midnight) call [phone] ([phone]) Next Risperidal Consta injection Due 04/02/23 Instructions: Schizoaffective Disorder (DC), [facility] DC Instructions Prescriptions: New quetiapine [...] cap PO DAILY fluticasone propionate 50 mcg/actuation [place],Suspension 1 spray INTRANASAL BID Rx Instructions: inhale [...] PO Q12H PRN (Reason: Congestion) Follow Up: [facility] [Other] (Long Acting Injetion Risperdal Consta Due 04/02/23) [facility] [Outside] - 04/02/23 12:15 pm (Case Management: A case management director will call you tomorrow, 03/29/23 between 8:00am and 5:00pm. Psychiatrist: Saturday04/02/23 @ 12:15pm with Dr. Galicia) Karla Clark, RODNEY, TARRING MACHINE OPERATOR-C [Referring] - Documented By: Joe Davis MD 3 [id number] Signed By: <Electronically signed by Joe Davis MD> 03/28/23 1330 [facility] Work Phone: 1(615) 559-721210-26-2023 Hospital Discharge instructions Additional Instructions Important Contact Information You can call [facility] at [phone] any time day or night if you have emergent questions or question regarding discharge instructions. If at any time you are feeling an increase in your psychiatric symptoms, call your physician or behavioral healthcare provider. If any time you have thoughts of harming yourself or others contact one of the following: Call 98-8 (available 24/12) Crisis Text Line (available 24/12) text 4HOPE to [phone] [facility] Hope Line (available 8 a.m. Midnight) call [phone] ([phone]) Next Risperidal Consta injection Due 04/02/23[facility] Work Phone: 1(751) 542-590110-25-2023 Progress note Author Joe rodriguez [facility] March 27, 2023 11:29am Note Date/Time March 27, 2023 1 1:29am [facility] [address] [place] [address] Psychiatry Progress Note Signed Patient: Gail Almeida MR#: [id number] : 1955 Acct:[id number] Age/Sex: 67 / F Adm Date: 3 Loc: Room: [address] [place] [address] Type : ADM INOo Attending Dr: Joe [...] <Electronically signed by Joe Davis MD> 03/27/23 1122 [facility] Work Phone: 1([phone]) 966-511410-25-2023 History and physical note Author Joe rodriguez [facility] March 27, 2023 9:05am Note Date/Time March 27, 2023 9 :05am [facility] [address] [place] [address] Psychiatry H&P Signed Patient: Gail Almeida MR#: [id number] : 1955 Acct:[id number] Age/Sex: 67 / F Adm Date: 3 Loc: 1S Room: [address] [place] [address] Type: ADM INOo Attending Dr: Joe Davis [...] homicidality and suicidality Insight: fair Judgment: fair [facility] Medical History (Updated 03/26/23 @ 18:06 by [...] oral powder 17 g PO DAILY PRN Zdnkzecevavi44/10/23 [History Confirmed 03/26/23] quetiapine 400 mg tablet,extended [...] 03/26/23] dextromethorphan-guaifenesin 30 mg-600 mg tablet extended zanzvhh97 hr (Mucus DM) 1 tab PO Q12H [...] participation. Documented By: Joe Davis MD 3 [id number] Signed By: <Electronically signed by Joe Davis MD> 03/27/23 0905 [facility] Work Phone: 1([phone]) 632-190810-24-2023 Consult note Author Jose Huang [facility] March 26, 2023 9:29pm Note Date/Time March 26, 2023 5 :27pm [facility] [address] [place] [address] Hospitalist Consult Note Signed Patient: Gail Almeida MR#: [id number] : 1955 Acct:[id number] Age/Sex: 67 / F Adm Date: 3 Loc: Room: [address] [place] [address] Type: ADM IN Attending Dr: Joe Davis [...] with mental health concerns. Transferred to [facility] for inpatient psychiatric admission. Hospitalist team [...] negative unless noted below or in HPI [facility] Medical History (Updated 03/26/23 @ 18:06 by [...] oral powder 17 g PO DAILY PRN Mudrgnjshtst82/10/23 [History Confirmed 03/26/23] quetiapine 400 mg tablet,extended [...] spray 03/26/23 09:00 03/26/23 08:22 Fluticasone Propionate [place] 120 [place]/16 Gm Bottle INTRANASAL 03/25/24 08:59 1 spray [...] 03/25/24 08:59 1 cap DAILY JOANNA Administration [place] Carbonate 150 mg 03/26/23 09:00 03/26/23 08:21 [place] Carbonate 300 Mg Tablet PO 03/25/24 08:59 150 mg BID JOANNA Administration Loratadine 10 mg 03/26/23 09:00 03/26/23 08:21 Loratadine 10 Mg Tablet PO 03/25/24 08:59 10 mg DAILY JOANNA Administration Magnesium Hydroxide 30 ml 03/26/23 01:03 Magnesium Hydroxide Susp 30 Ml Udc PO 03/25/24 01:02 Q6H PRN Constipation Meloxicam 15 mg 03/26/23 22:00 Meloxicam *Nf* 7.5 Mg Tablet PO 03/25/24 21:59 [facility] Olanzapine 5 mg 03/26/23 01:03 [...] 200 Mg Tab.Er.24h PO 03/25/24 21:59 QHS [facility] Sterile Water 2.1 ml 03/26/23 01:03 Water For Injection,Sterile 10 Ml Vial INJECTION 03/25/24 01:02 PRN PRN To dilute OLANZapine (ZyPREXA) Topiramate 25 mg 03/26/23 22:00 Topiramate 25 Mg Tablet PO 03/25/24 21:59 QHS [facility] Exam Physical Exam Vital Signs: Temp Pulse [...] Results - last 72 hr 03/26/23 07:30: [place] 0.20 L 03/26/23 07:30: Triglycerides 86, Cholesterol [...] <Electronically signed by Jose Huang DO> 03/26/232128 [facility] Work Phone: [phone] 891-327810-24-2023 Consult note Author Mariana Pryor [facility] March 26, 2023 5:27pm Note Date/Time March 26, 2023 3 :48pm [facility] [address] [place] [address] Hospitalist Consult Note Signed with Addenda Patient: Gail Almeida MR#: [id number] : 1955 Acct:[id number] Age/Sex: 67 / F Adm Date: 3 Loc: Room: [address] [place] [address] Type: ADM IN Attending Dr: Joe Davis MD Copies to: NON STAFF MD Mariana Vides APRN~ ADDENDUM1 disregard signed without completion Addendum Documented By: RODNEY Pryor 03/26/23 172 Addendum Signed By: <Electronically signed by RODNEY Pryor> 03/26/23 1726 HPI DATE OF CONSULTATION: 03/26/23 REQUESTING PROVIDER: Joe Davis [facility] Medical History (Updated 03/26/23 @ 01:23 by [...] oral powder 17 g PO DAILY PRN Yicmgunflbyn86/10/23 [History Confirmed 03/26/23] quetiapine 400 mg tablet,extended [...] spray 03/26/23 09:00 03/26/23 08:22 Fluticasone Propionate [place] 120 [place]/16 Gm Bottle INTRANASAL 03/25/24 08:59 1 spray [...] 03/25/24 08:59 1 cap DAILY JOANNA Administration [place] Carbonate 150 mg 03/26/23 09:00 03/26/23 08:21 [place] Carbonate 300 Mg Tablet PO 03/25/24 08:59 [...] Results - last 72 hr 03/26/23 07:30: [place] 0.20 L 03/26/23 07:30: Triglycerides 86, Cholesterol 165, LDL Cholesterol, Calc 95, VLDL Cholesterol 17, HDL Cholesterol 53, Cholesterol/HDL Ratio 3.1, 25-OH Vitamin D Total 34.5, Free T4 0.74, TSH 3rd Generation 0.42 L Documented By: Mariana Pryor APRN 03/04 09/23 1542 Signed By: <Electronically signed by RODNEY Pryor> 03/26/23 1726 [facility] Work Phone: 1(101) 697-503510-19-2023 Progress note* Progress note Date Encounter Last Documented by 03/21/2023 Chart Update Last documented on 03/21/2023; 11:27 AM, Karla Clark CLINICAL PHARMACY TECHNICIAN; [facility] Active Problems & Conditions - J20.9 [...] arm pain, 5 days, 0 refills - [place] Carbonate 150 MG Oral Capsule one capsule [...] Bipolar disorder NOS Depression Heart Attack 03/2021 [facility]. Surgical: - General surgery right shoulder [...] EndCited Advance Directives - Advance Care Planning [facility]10-19-2023 Instructions Includes: Instructions for all patient encounters Instructions to patient Intervention and counseling on cessation of tobacco use, 3-10 minutes Discussed medication and nicotine replacement for tobacco cessation Last Documented On 3 8:54AM ; [facility] Intervention and counseling on cessation of tobacco use, 3-10 minutes Discussed medication and nicotine replacement for tobacco cessation Last Documented On 2 1:56PM ; [facility] Intervention and counseling on cessation of tobacco use, 3-10 minutes Last Documented On 0 2:07PM ; [facility] Return to the clinic if cond ition worsens or new symptoms arise Last Documented On 9 1:59PM ; [facility] Intervention and counseling on cessation of tobacco use, 3-10 minutes Last Documented On 9 10:39AM ; [facility] Education and Decision Aids were provided during visit for: Discussed nutritional needs teach healthy choices including fruits and vegetables Last Documented On 3 9:37AM ; [facility] Patient education about a pr oper diet Last Documented On 3 9:37AM ; [facility] Discussed concerns about exe rcise : promote physical activity Last Documented On 3 9:37AM ; [facility] Not requesting contraception Last Documented On 3 9:37AM ; [facility] Discussed nutritional needs teach healthy choices including fruits and vegetables Last Documented On 3 9:20AM ; [facility] Patient education about a pr oper diet Last Documented On 3 9:20AM ; [facility] Discussed concerns about exe rcise : promote physical activity Last Documented On 3 9:20AM ; [facility] Discussed nutritional needs teach healthy choices including fruits and vegetables Last Documented On 3 2:02PM ; [facility] Patient education about a pr oper diet Last Documented On 3 2:02PM ; [facility] Discussed concerns about exe rcise : promote physical activity Last Documented On 3 2:02PM ; [facility] Discussed nutritional needs teach healthy choices including fruits and vegetables Last Documented On 3 8:32AM ; [facility] Patient education about a pr oper diet Last Documented On 3 8:32AM ; [facility] Discussed concerns about exe rcise : promote physical activity Last Documented On 3 8:32AM ; [facility] Discussed nutritional needs teach healthy choices including fruits and vegetables Last Documented On 3 11:28AM ; [facility] Patient education about a pr oper diet Last Documented On 3 11:28AM ; [facility] Discussed concerns about exe rcise : promote physical activity Last Documented On 3 11:28AM ; [facility] Discussed nutritional needs teach healthy choices including fruits and vegetables Last Documented On 2 2:01PM ; [facility] Patient education about a pr oper diet Last Documented On 2 2:01PM ; [facility] Discussed concerns about exe rcise : promote physical activity Last Documented On 2 2:01PM ; [facility] Discussed nutritional needs teach healthy choices including fruits and vegetables Last Documented On 2 2:11PM ; [facility] Patient education about a pr oper diet Last Documented On 2 2:11PM ; [facility] Discussed concerns about exe rcise : promote physical activity Last Documented On 2 2:11PM ; [facility] Discussed current self-care methods/coping skills. ~Validated and normalized pt's feelings while assisting patient process recent events. ~Discussed ongoing counseling. ~Discussed lifestyle changes to address chronic illness. ~Supported patient's personal health goals ~wordfinds. walk, read, eat, enjoy my best friesnd Last Documented On 2 5:54PM ; [facility] Discussed nutritional needs teach healthy choices including fruits and vegetables Last Documented On 2 10:04AM ; [facility] Patient education about a pr oper diet Last Documented On 2 10:04AM ; [facility] Discussed concerns about exe rcise : promote physical activity Last Documented On 2 10:04AM ; [facility] Discussed nutritional needs teach healthy choices including fruits and vegetables Last Documented On 2 1:25PM ; [facility] Patient education about a pr oper diet Last Documented On 2 1:25PM ; [facility] Discussed concerns about exe rcise : promote physical activity Last Documented On 2 1:25PM ; [facility] Discussed nutritional needs teach healthy choices including fruits and vegetables Last Documented On 1 10:08AM ; [facility] Patient education about a pr oper diet Last Documented On 1 10:08AM ; [facility] Discussed concerns about exe rcise : promote physical activity Last Documented On 1 10:08AM ; [facility] Discussed nutritional needs teach healthy choices including fruits and vegetables Last Documented On 1 1:12PM ; [facility] Patient education about a pr oper diet Last Documented On 1 1:12PM ; [facility] Patient education about a pr oper diet Last Documented On 1 1:30PM ; [facility] Patient education about meal planning Last Documented On 1 1:30PM ; [facility] Education about changing eat ing habits Last Documented On 1 1:30PM ; [facility] Patient education about high fiber diet Last Documented On 1 1:30PM ; [facility] Patient education about low fat diet Last Documented On 1 1:30PM ; [facility] Patient education about low cholesterol diet Last Documented On 1 1:30PM ; [facility] Patient education about low carbohydrate diet Last Documented On 1 1:30PM ; [facility] Patient education about high protein diet Last Documented On 1 1:30PM ; [facility] Discussed concerns about exe rcise : promote physical activity Last Documented On 1 1:12PM ; [facility] Education/counseling conduct ed by pharmacist Last Documented On 0 1:39PM ; [facility] Vaccination counseling Last Documented On 0 1:39PM ; [facility] Discussed concerns about exe rcise : promote physical activity Last Documented On 0 2:16PM ; [facility] Patient goals decrease short ness of breath episodes Last Documented On 0 2:11PM ; [facility] Patient states that she uses her [...] recently Last Documented On 0 2:24PM ; [facility] Patient education about a pr oper diet Last Documented On 0 2:54PM ; [facility] Patient education about meal planning Last Documented On 0 2:54PM ; [facility] Education about changing eat ing habits Last Documented On 0 2:54PM ; [facility] Patient education about high fiber diet Last Documented On 0 2:54PM ; [facility] Patient education about low fat diet Last Documented On 0 2:54PM ; [facility] Patient education about low cholesterol diet Last Documented On 0 2:54PM ; [facility] Patient education about low carbohydrate diet Last Documented On 0 2:54PM ; [facility] Patient education about high protein diet Last Documented On 0 2:54PM ; [facility] Discussed nutritional needs teach healthy choices including fruits and vegetables Last Documented On 0 11:11AM ; [facility] Patient education about a pr oper diet Last Documented On 0 11:11AM ; [facility] Patient education about a pr oper diet Last Documented On 0 11:28AM ; [facility] Patient education about meal planning Last Documented On 0 11:28AM ; [facility] Education about changing eat ing habits Last Documented On 0 11:28AM ; [facility] Patient education about high fiber diet Last Documented On 0 11:28AM ; [facility] Patient education about low fat diet Last Documented On 0 11:28AM ; [facility] Patient education about low cholesterol diet Last Documented On 0 11:28AM ; [facility] Patient education about low carbohydrate diet Last Documented On 0 11:28AM ; [facility] Patient education about high protein diet Last Documented On 0 11:28AM ; [facility] Discussed concerns about exe rcise : promote physical activity Last Documented On 0 11:11AM ; [facility] Education/counseling conduct ed by pharmacist Last Documented On 0 1:41PM ; [facility] Patient states that she lonnie gonzalez [...] own Last Documented On 0 2:08PM ; [facility] Education/counseling conduct ed by pharmacist Last Documented On 9 1:12PM ; [facility] Patient states that she lonnie gonzalez has issues with her inhaler with the spacer. Patient did not bring in inhaler or spacer. Patient was told to bring in inhalers at next scheduled visit for pharmacist to assess inhalation technique. Patient is agreeable Last Documented On 9 1:13PM ; [facility] Patient goals Start using ch deon to help with inhaling dulera Last Documented On 9 2:40PM ; [facility] Patient states that she is g [...] vaccines Last Documented On 9 2:51PM ; [facility] Discussed nutritional needs teach healthy choices including fruits and vegetables Last Documented On 9 9:29AM ; [facility] Patient education about a pr oper diet Last Documented On 9 9:29AM ; [facility] Discussed concerns about exe rcise : promote physical activity Last Documented On 9 9:29AM ; [facility] Work Phone: 1(701) 882-635410-13-2023 Hospital Discharge instructions Additional Instructions Important Contact Information You can call [facility] at [phone] any time day or night if you have emergent questions or question regarding discharge instructions. If at any time you are feeling an increase in your psychiatric symptoms, call your physician or behavioral healthcare provider. If any time you have thoughts of harming yourself or others contact one of the following: Call 1-88 (available 24/12) Crisis Text Line (available 24/12) text 4HOPE to 337448 [facility] Hope Line (available 8 a.m. Midnight) call 525-693-KNOV (8483) Regular Diet No Activity Restrictions Risperdal Consta Long Acting Injection Due 03/21/23[facility] Work Phone: [phone]) 484-453310-12-2023 Consult note Author Maddy Moss [facility] March 14, 2023 3:16pm Note Date/Time March 14, 2023 3 :14pm [facility] [address] [place] [address] Cardiology Consult Note Signed Patient: Gail Almeida MR#: [id number] : 1955 Acct:[id number] Age/Sex: 67 / F Adm Date: 3 Loc: Room: 6S9148-8 Type: ADM IN Attending Dr: Joe Davis [...] negative unless noted below or in HPI [facility] Medical History (Updated 03/14/23 @ 15:12 by [...] oral powder 17 g PO DAILY PRN Evytgrqijhrq26/10/23 [History Confirmed 03/12/23] Exam Physical Exam Vital [...] x10E3/uL Lymph # (Auto) 1.9 (1.00-4.8) x10E3/uL [place] # (Auto) 0.6 (0.0-0.8) x10E3/uL Eos # [...] <Electronically signed by Maddy Moss MD> 03/14/23 [facility] Work Phone: [phone]) 698-400410-12-2023 Progress note Author Joe rodriguez [facility] March 14, 2023 6:33am Note Date/Time March 14, 2023 6 :33am [facility] [address] [place] [address] Psychiatry Progress Note Signed Patient: Gail Almeida MR#: [id number] : 1955 Acct:[id number] Age/Sex: 67 / F Adm Date: 3 Loc: Room: [address] [place] [address] Type : ADM IN Attending Dr: Joe [...] signed by Joe Davis MD> 03/14/23 0633 [facility] Work Phone: [phone]) 723-682510-11-2023 Progress note Author Joe rodriguez [facility] March 13, 2023 1:14pm Note Date/Time March 13, 2023 7 :06am [facility] [address] [place] [address] Psychiatry Progress Note Signed Patient: Gail Almeida MR#: [id number] : 1955 Acct:[id number] Age/Sex: 67 / F Adm Date: 3 Loc: 1S Room: 0M9723-5 Type : ADM IN Attending Dr: Joe [...] <Electronically signed by Joe Davis MD> 03/13/23 1311 [facility] Work Phone: [phone]) 561-343110-10-2023 History and physical note Author Jeo rodriguez [facility] March 12, 2023 11:25am Note Date/Time March 12, 2023 1 0:29am [facility] [address] [place] [address] Psychiatry H&P Signed Patient: Gail Almeida MR#: [id number] : 1955 Acct:[id number] Age/Sex: 67 / F Adm Date: 3 Loc: Room: [address] [place] [address] Type: ADM IN Attending Dr: Joe Davis [...] signs of shelby. She was sent to [facility] for medical clearance and then brought to [facility]. The patient stated that her friend [...] hospitalizations: Hospitalized 8 years ago at [facility] Past suicide attempts: Denies Family psych history: Mother with bipolar disorder. Daughter with bipolar disorder. Previous medications: Seroquel, Risperdal IM, amantadine, Cogentin, lithium Alcohol and drug use: Denies alcohol or illicit drug use. Reports smoking 3 to 4 cigarettes/day. Living: Alone at [facility] Employment: Unemployed. Plans to retire [...] equal bilaterally. CN XII: Tongue protrusion midline [facility] Medical History (Updated 03/12/23 @ 11:22 by [...] oral powder 17 g PO DAILY PRN Uorkodmvnkiv75/10/23 [History Confirmed 03/12/23] Exam Physical Exam Vital [...] signed by Joe Davis MD> 03/12/23 1125 [facility] Work Phone: [phone]) 427-438109-28-2023 History general Narrative - Reported Includes: Medical History in patient's chart Description Last Updated 1 previous live (s) 02/28/2023 Last Documented On 3 9:51AM ; [facility] Previously 1 time(s) 02/28/2023 Last Documented On 3 9:51AM ; [facility] Previous hospitalizations 09/18/2022 Last Documented On 3 2:33PM ; [facility] Currently nursing 11/03/2021 Last Documented On 2 7:00PM ; [facility] status unknown for sexually tra nsmitted infection 11/03/2021 Last Documented On 2 7:00PM ; [facility] 11/03/2021 Last Documented On 2 7:00PM ; [facility] Not planning to have a baby in the next 12 months 11/03/2021 Last Documented On 2 7:00PM ; [facility] Heart Attack 03/2021 [facility] 1 07/09/2020 Last Documented On 1 10:59AM ; [facility] A recent immunization for flu 05/06/2020 Last Documented On 0 7:27PM ; [facility] Patient gave verbal consent for teleheal th 08/31/2019 Last Documented On 0 9:21AM ; [facility] History of abnormal electrocardiogram Last Documented On 9 2:12PM ; [facility] History of asthma 07/31/2018 Last Documented On 9 2:12PM ; [facility] History of cardiovascular disorder 07/31 Last Documented On 9 2:12PM ; [facility] History of respiratory disorder 07/31/19 19 Last Documented On 9 2:12PM ; [facility] History of bipolar disorder NOS 07/31/19 19 Last Documented On 9 2:12PM ; [facility] History of depression 07/31/2018 Last Documented On 9 2:12PM ; [facility] History of psychiatric disorders 019 Last Documented On 9 2:12PM ; [facility] Work Phone: [phone]) 746-772509-28-2023 Progress note* Progress note Date Encounter Last Documented by 02/28/2023 Medical Established Patient Last documented on 02/28/2023; 9:51 AM, Aaron Whitaker CNP; [facility] Active Problems & Conditions - J20.9 [...] arm pain, 5 days, 0 refills - [place] Carbonate 150 MG Oral Capsule one capsule [...] Bipolar disorder NOS Depression Heart Attack 03/2021 [facility]. Surgical: - General surgery right shoulder [...] BP-Sitting L111/76 mmHg BP Cuff SizeRegular Pulse Rate-Djmhjek45 bpm Sqgwcq43 in Bhtnzc922 lbs 12.8 oz Body Mass Index24 kg/m2 Body Surface Area1.7 m2 Oxygen Qtkowlxiok70 % Vital Signs: - Systolic blood pressure [...] breast Outside Diagn Tests/Imaging: Mammogram - Screening (44802) EndCited StartCited- Other Topiramate 25 MG tablet [...] + 0 pt : Not at all. [facility]07-12-2023 Evaluation note* Encounter Date Diagnosis Assessment [...] Other specified postprocedural states (ICD-10 - Z98.890) [employer] Other 06-19-2023 Progress note* Progress note Date Encounter Last Documented by 11/19/2022 Medical Established Patient Last documented on 11/19/2022; 10:15 AM, Karla Clark CNP; [facility] Active Problems & Conditions - [...] EVERY DAY, 30 days, 11 refills - [place] Carbonate 300MG Oral Tablet 300 MG take [...] Bipolar disorder NOS Depression Heart Attack 03/2021 [facility]. Surgical: - General surgery right shoulder [...] BP-Sitting L133/60 mmHg BP Cuff SizeRegular Pulse Rate-Ybbrzfe07 bpm Temp-Vbjjemud28.6 F Satmfo70 in Grcasb731 lbs 6.4 oz Body Mass Index23.6 kg/m2 Body Surface Area1.7 m2 Oxygen Ncuiqarnzm69 % General Appearance: - Awake. - Alert. [...] + 0 pt : Not at all. [facility]06-19-2023 Instructions Includes: Instructions for all patient encounters Instructions to patient Intervention and counseling on cessation of tobacco use, 3-10 minutes Discussed medication and nicotine replacement for tobacco cessation Last Documented On 3 8:54AM ; [facility] Intervention and counseling on cessation of tobacco use, 3-10 minutes Discussed medication and nicotine replacement for tobacco cessation Last Documented On 2 1:56PM ; [facility] Intervention and counseling on cessation of tobacco use, 3-10 minutes Last Documented On 0 2:07PM ; [facility] Return to the clinic if cond ition worsens or new symptoms arise Last Documented On 9 1:59PM ; [facility] Intervention and counseling on cessation of tobacco use, 3-10 minutes Last Documented On 9 10:39AM ; [facility] Education and Decision Aids were provided during visit for: Discussed nutritional needs teach healthy choices including fruits and vegetables Last Documented On 3 9:20AM ; [facility] Patient education about a pr oper diet Last Documented On 3 9:20AM ; [facility] Discussed concerns about exe rcise : promote physical activity Last Documented On 3 9:20AM ; [facility] Discussed nutritional needs teach healthy choices including fruits and vegetables Last Documented On 3 2:02PM ; [facility] Patient education about a pr oper diet Last Documented On 3 2:02PM ; [facility] Discussed concerns about exe rcise : promote physical activity Last Documented On 3 2:02PM ; [facility] Discussed nutritional needs teach healthy choices including fruits and vegetables Last Documented On 3 8:32AM ; [facility] Patient education about a pr oper diet Last Documented On 3 8:32AM ; [facility] Discussed concerns about exe rcise : promote physical activity Last Documented On 3 8:32AM ; [facility] Discussed nutritional needs teach healthy choices including fruits and vegetables Last Documented On 3 11:28AM ; [facility] Patient education about a pr oper diet Last Documented On 3 11:28AM ; [facility] Discussed concerns about exe rcise : promote physical activity Last Documented On 3 11:28AM ; [facility] Discussed nutritional needs teach healthy choices including fruits and vegetables Last Documented On 2 2:01PM ; [facility] Patient education about a pr oper diet Last Documented On 2 2:01PM ; [facility] Discussed concerns about exe rcise : promote physical activity Last Documented On 2 2:01PM ; [facility] Discussed nutritional needs teach healthy choices including fruits and vegetables Last Documented On 2 2:11PM ; [facility] Patient education about a pr oper diet Last Documented On 2 2:11PM ; [facility] Discussed concerns about exe rcise : promote physical activity Last Documented On 2 2:11PM ; [facility] Discussed current self-care methods/coping skills. ~Validated and normalized pt's feelings while assisting patient process recent events. ~Discussed ongoing counseling. ~Discussed lifestyle changes to address chronic illness. ~Supported patient's personal health goals ~wordfinds. walk, read, eat, enjoy my best friesnd Last Documented On 2 5:54PM ; [facility] Discussed nutritional needs teach healthy choices including fruits and vegetables Last Documented On 2 10:04AM ; [facility] Patient education about a pr oper diet Last Documented On 2 10:04AM ; [facility] Discussed concerns about exe rcise : promote physical activity Last Documented On 2 10:04AM ; [facility] Discussed nutritional needs teach healthy choices including fruits and vegetables Last Documented On 2 1:25PM ; [facility] Patient education about a pr oper diet Last Documented On 2 1:25PM ; [facility] Discussed concerns about exe rcise : promote physical activity Last Documented On 2 1:25PM ; [facility] Discussed nutritional needs teach healthy choices including fruits and vegetables Last Documented On 1 10:08AM ; [facility] Patient education about a pr oper diet Last Documented On 1 10:08AM ; [facility] Discussed concerns about exe rcise : promote physical activity Last Documented On 1 10:08AM ; [facility] Discussed nutritional needs teach healthy choices including fruits and vegetables Last Documented On 1 1:12PM ; [facility] Patient education about a pr oper diet Last Documented On 1 1:12PM ; [facility] Patient education about a pr oper diet Last Documented On 1 1:30PM ; [facility] Patient education about meal planning Last Documented On 1 1:30PM ; [facility] Education about changing eat ing habits Last Documented On 1 1:30PM ; [facility] Patient education about high fiber diet Last Documented On 1 1:30PM ; [facility] Patient education about low fat diet Last Documented On 1 1:30PM ; [facility] Patient education about low cholesterol diet Last Documented On 1 1:30PM ; [facility] Patient education about low carbohydrate diet Last Documented On 1 1:30PM ; [facility] Patient education about high protein diet Last Documented On 1 1:30PM ; [facility] Discussed concerns about exe rcise : promote physical activity Last Documented On 1 1:12PM ; [facility] Education/counseling conduct ed by pharmacist Last Documented On 0 1:39PM ; [facility] Vaccination counseling Last Documented On 0 1:39PM ; [facility] Discussed concerns about exe rcise : promote physical activity Last Documented On 0 2:16PM ; [facility] Patient goals decrease short ness of breath episodes Last Documented On 0 2:11PM ; [facility] Patient states that she uses her [...] recently Last Documented On 0 2:24PM ; [facility] Patient education about a pr oper diet Last Documented On 0 2:54PM ; [facility] Patient education about meal planning Last Documented On 0 2:54PM ; [facility] Education about changing eat ing habits Last Documented On 0 2:54PM ; [facility] Patient education about high fiber diet Last Documented On 0 2:54PM ; [facility] Patient education about low fat diet Last Documented On 0 2:54PM ; [facility] Patient education about low cholesterol diet Last Documented On 0 2:54PM ; [facility] Patient education about low carbohydrate diet Last Documented On 0 2:54PM ; [facility] Patient education about high protein diet Last Documented On 0 2:54PM ; [facility] Discussed nutritional needs teach healthy choices including fruits and vegetables Last Documented On 0 11:11AM ; [facility] Patient education about a pr oper diet Last Documented On 0 11:11AM ; [facility] Patient education about a pr oper diet Last Documented On 0 11:28AM ; [facility] Patient education about meal planning Last Documented On 0 11:28AM ; [facility] Education about changing eat ing habits Last Documented On 0 11:28AM ; [facility] Patient education about high fiber diet Last Documented On 0 11:28AM ; [facility] Patient education about low fat diet Last Documented On 0 11:28AM ; [facility] Patient education about low cholesterol diet Last Documented On 0 11:28AM ; [facility] Patient education about low carbohydrate diet Last Documented On 0 11:28AM ; [facility] Patient education about high protein diet Last Documented On 0 11:28AM ; [facility] Discussed concerns about exe rcise : promote physical activity Last Documented On 0 11:11AM ; [facility] Education/counseling conduct ed by pharmacist Last Documented On 0 1:41PM ; [facility] Patient states that she lonnie gonzalez [...] own Last Documented On 0 2:08PM ; [facility] Education/counseling conduct ed by pharmacist Last Documented On 9 1:12PM ; [facility] Patient states that she lonnie gonzalez has issues with her inhaler with the spacer. Patient did not bring in inhaler or spacer. Patient was told to bring in inhalers at next scheduled visit for pharmacist to assess inhalation technique. Patient is agreeable Last Documented On 9 1:13PM ; [facility] Patient goals Start using ch deon to help with inhaling dulera Last Documented On 9 2:40PM ; [facility] Patient states that she is g [...] vaccines Last Documented On 9 2:51PM ; [facility] Discussed nutritional needs teach healthy choices including fruits and vegetables Last Documented On 9 9:29AM ; [facility] Patient education about a pr oper diet Last Documented On 9 9:29AM ; [facility] Discussed concerns about exe rcise : promote physical activity Last Documented On 9 9:29AM ; [facility] Work Phone: 1([phone]) 432-344305-31-2023 Evaluation note* Encounter Date Diagnosis Assessment Notes [...] Other specified postprocedural states (ICD-10 - Z98.890) [employer] Other 05-05-2023 Evaluation note* Encounter Date Diagnosis Assessment Notes Treatment Notes Treatment Clinical Notes October, Other closed displaced fracture of proximal end of right humerus with routine healing, subsequent encounter (ICD-10 - S42.291D) [employer] Other 05-03-2023 Evaluation note* Encounter Date Diagnosis [...] as documented in the electronic medical record. [employer] Other 04-21-2023 Progress note* Progress note Date Encounter Last Documented by 09/21/2022 Chart Update Last documented on 09/21/2022; 4:58 PM, Karla Clark CNP; [facility] Active Problems & Conditions - J45.909 [...] Oral Tablet 5 days, 0 refills - [place] Carbonate 300MG Oral Tablet 300 MG take [...] Bipolar disorder NOS Depression Heart Attack 03/2021 [facility]. Surgical: - General surgery right shoulder [...] Vaccine Advance Directives - Advance Care Planning [facility]04-18-2023 History general Narrative - Reported Includes: Medical History in patient's chart Description Last Updated Previous hospitalizations 09/18/2022 Last Documented On 3 2:33PM ; [facility] Currently nursing 11/03/2021 Last Documented On 2 7:00PM ; [facility] status unknown for sexually tra nsmitted infection 11/03/2021 Last Documented On 2 7:00PM ; [facility] 11/03/2021 Last Documented On 2 7:00PM ; [facility] Not planning to have a baby in the next 12 months 11/03/2021 Last Documented On 2 7:00PM ; [facility] Heart Attack 03/2021 [facility] 1 07/09/2020 Last Documented On 1 10:59AM ; [facility] A recent immunization for flu 05/06/2020 Last Documented On 0 7:27PM ; [facility] Patient gave verbal consent for teleheal th 08/31/2019 Last Documented On 0 9:21AM ; [facility] History of abnormal electrocardiogram Last Documented On 9 2:12PM ; [facility] History of asthma 07/31/2018 Last Documented On 9 2:12PM ; [facility] History of cardiovascular disorder 07/31 Last Documented On 9 2:12PM ; [facility] History of respiratory disorder 07/31/19 19 Last Documented On 9 2:12PM ; [facility] History of bipolar disorder NOS 07/31/19 19 Last Documented On 9 2:12PM ; [facility] History of depression 07/31/2018 Last Documented On 9 2:12PM ; [facility] History of psychiatric disorders 019 Last Documented On 9 2:12PM ; [facility] Work Phone: 1(495) 464-847204-18-2023 Progress note* Progress note Date Encounter Last Documented by 09/18/2022 Medical Established Patient Last documented on 09/18/2022; 2:33 PM, Karla Clark CNP; [facility] Active Problems & Conditions - J45.909 [...] had surgery on rotator cuff at [facility]. Referred Here Referred by emergency room. [...] Oral Tablet 5 days, 0 refills - [place] Carbonate 300MG Oral Tablet 300 MG take [...] Bipolar disorder NOS Depression Heart Attack 03/2021 [facility]. Surgical: - Hysterectomy Social History Environmental [...] BP-Sitting L142/74 mmHg BP Cuff SizeRegular Pulse Rate-Pivtwfp10 bpm Temp-Lrotmlig80.6 F Zhnnta94 in Fdqrbt696 lbs 12.8 oz Body Mass Index24.9 kg/m2 Body Surface Area1.7 m2 Oxygen Irmcybvsca89 % General Appearance: - Awake. - Alert. [...] Tobacco Cessation Intervention and Counseling satisfied 09/18/2022. [facility]04-10-2023 Evaluation note* Encounter Date Diagnosis Assessment [...] - S42.291A) Gail is here today for [facility] follow-up of right shoulder fracture dislocation. Prior medical notes from [facility] have been reviewed today. Images have [...] poor healing. I have advised against the fci use of narcotic pain medication. I have advised to follow all post-operative instructions in order to obtain the best outcome. Informed consent has been verbally affirmed and signed as indicated. Plan for ORIF of right greater tuberosity. Beachchair positioning. Possible proximal humerus plate. Sep, Other See orders for this visit as documented in the electronic medical record. [employer] Other 04-06-2023 NoteEXAM: XR SHOULDER RT 1 V HISTORY: Pain ; post reduction evaluation COMPARISON: Right shoulder x-rays from same date TECHNIQUE: FINDINGS: The humeral head remains inferior to the glenoid. Stable displaced fracture of the greater tuberosity. IMPRESSION: 1. 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 Electronically authenticated by: HÉCTOR HO Date: 2022-09-06 14:58[facility]04-06-2023 NotePROCEDURE: XR HUMERUS RT MIN 2 [...] Electronically authenticated by: HÉCTOR HO Date: 2022-09-06 11:48[facility]04-06-2023 NotePROCEDURE: XR HUMERUS RT MIN 2 [...] Electronically authenticated by: HÉCTOR HO Date: 2022-09-06 11:48[facility]03-27-2023 Progress note* Progress note Date Encounter Last Documented by 08/27/2022 Chart Update Last documented on 08/27/2022; 8:57 AM, Carolin ATWOOD; [facility] Active Problems & Conditions - [...] EVERY DAY, 30 days, 11 refills - [place] Carbonate 300MG Oral Tablet 300 MG take [...] total score: 0 pts (Scale: 0-6) PHQ2. [facility]03-27-2023 Progress note* Progress note Date Encounter Last Documented by 08/27/2022 Medical Established Patient Last documented on 08/27/2022; 9:20 AM, Karla Clark CNP; [facility] Active Problems & Conditions - J45.909 [...] EVERY DAY, 30 days, 11 refills - [place] Carbonate 300MG Oral Tablet 300 MG take [...] Bipolar disorder NOS Depression Heart Attack 03/2021 [facility]. Surgical: - Hysterectomy Social History Environmental [...] BP-Sitting L115/73 mmHg BP Cuff SizeRegular Pulse Rate-Pfcdxzr98 bpm Temp-Bcyognni27 F Qvxwtt93 in Fdwzdm633 lbs 9.6 oz Body Mass Index24.6 kg/m2 Body Surface Area1.7 m2 Oxygen Dowesfvjit57 % General Appearance: - Appears distressed. - [...] Cessation Intervention and Counseling satisfied 08/27/2022. [facility]03-27-2023 Instructions Includes: Instructions for all patient encounters Instructions to patient Intervention and counseling on cessation of tobacco use, 3-10 minutes Discussed medication and nicotine replacement for tobacco cessation Last Documented On 8:54AM ; [facility] Intervention and counseling on cessation of tobacco use, 3-10 minutes Discussed medication and nicotine replacement for tobacco cessation Last Documented On 2 1:56PM ; [facility] Intervention and counseling on cessation of tobacco use, 3-10 minutes Last Documented On 0 2:07PM ; [facility] Return to the clinic if cond ition worsens or new symptoms arise Last Documented On 9 1:59PM ; [facility] Intervention and counseling on cessation of tobacco use, 3-10 minutes Last Documented On 9 10:39AM ; [facility] Education and Decision Aids were provided during visit for: Discussed nutritional needs teach healthy choices including fruits and vegetables Last Documented On 3 9:37AM ; [facility] Patient education about a pr oper diet Last Documented On 3 9:37AM ; [facility] Discussed concerns about exe rcise : promote physical activity Last Documented On 3 9:37AM ; [facility] Not requesting contraception Last Documented On 3 9:37AM ; [facility] Discussed nutritional needs teach healthy choices including fruits and vegetables Last Documented On 3 9:20AM ; [facility] Patient education about a pr oper diet Last Documented On 3 9:20AM ; [facility] Discussed concerns about exe rcise : promote physical activity Last Documented On 3 9:20AM ; [facility] Discussed nutritional needs teach healthy choices including fruits and vegetables Last Documented On 3 2:02PM ; [facility] Patient education about a pr oper diet Last Documented On 3 2:02PM ; [facility] Discussed concerns about exe rcise : promote physical activity Last Documented On 3 2:02PM ; [facility] Discussed nutritional needs teach healthy choices including fruits and vegetables Last Documented On 3 8:32AM ; [facility] Patient education about a pr oper diet Last Documented On 3 8:32AM ; [facility] Discussed concerns about exe rcise : promote physical activity Last Documented On 3 8:32AM ; [facility] Discussed nutritional needs teach healthy choices including fruits and vegetables Last Documented On 3 11:28AM ; [facility] Patient education about a pr oper diet Last Documented On 3 11:28AM ; [facility] Discussed concerns about exe rcise : promote physical activity Last Documented On 3 11:28AM ; [facility] Discussed nutritional needs teach healthy choices including fruits and vegetables Last Documented On 2 2:01PM ; [facility] Patient education about a pr oper diet Last Documented On 2 2:01PM ; [facility] Discussed concerns about exe rcise : promote physical activity Last Documented On 2 2:01PM ; [facility] Discussed nutritional needs teach healthy choices including fruits and vegetables Last Documented On 2 2:11PM ; [facility] Patient education about a pr oper diet Last Documented On 2 2:11PM ; [facility] Discussed concerns about exe rcise : promote physical activity Last Documented On 2 2:11PM ; [facility] Discussed current self-care methods/coping skills. ~Validated and normalized pt's feelings while assisting patient process recent events. ~Discussed ongoing counseling. ~Discussed lifestyle changes to address chronic illness. ~Supported patient's personal health goals ~[employer]find[employer]. walk, read, eat, enjoy my best friesnd Last Documented On 2 5:54PM ; [facility] Discussed nutritional needs teach healthy choices including fruits and vegetables Last Documented On 2 10:04AM ; [facility] Patient education about a pr oper diet Last Documented On 2 10:04AM ; [facility] Discussed concerns about exe rcise : promote physical activity Last Documented On 2 10:04AM ; [facility] Discussed nutritional needs teach healthy choices including fruits and vegetables Last Documented On 2 1:25PM ; [facility] Patient education about a pr oper diet Last Documented On 2 1:25PM ; [facility] Discussed concerns about exe rcise : promote physical activity Last Documented On 2 1:25PM ; [facility] Discussed nutritional needs teach healthy choices including fruits and vegetables Last Documented On 1 10:08AM ; [facility] Patient education about a pr oper diet Last Documented On 1 10:08AM ; [facility] Discussed concerns about exe rcise : promote physical activity Last Documented On 1 10:08AM ; [facility] Discussed nutritional needs teach healthy choices including fruits and vegetables Last Documented On 1 1:12PM ; [facility] Patient education about a pr oper diet Last Documented On 1 1:12PM ; [facility] Patient education about a pr oper diet Last Documented On 1 1:30PM ; [facility] Patient education about meal planning Last Documented On 1 1:30PM ; [facility] Education about changing eat ing habits Last Documented On 1 1:30PM ; [facility] Patient education about high fiber diet Last Documented On 1 1:30PM ; [facility] Patient education about low fat diet Last Documented On 1 1:30PM ; [facility] Patient education about low cholesterol diet Last Documented On 1 1:30PM ; [facility] Patient education about low carbohydrate diet Last Documented On 1 1:30PM ; [facility] Patient education about high protein diet Last Documented On 1 1:30PM ; [facility] Discussed concerns about exe rcise : promote physical activity Last Documented On 1 1:12PM ; [facility] Education/counseling conduct ed by pharmacist Last Documented On 0 1:39PM ; [facility] Vaccination counseling Last Documented On 0 1:39PM ; [facility] Discussed concerns about exe rcise : promote physical activity Last Documented On 0 2:16PM ; [facility] Patient goals decrease short ness of breath episodes Last Documented On 0 2:11PM ; [facility] Patient states that she uses her [...] recently Last Documented On 0 2:24PM ; [facility] Patient education about a pr oper diet Last Documented On 0 2:54PM ; [facility] Patient education about meal planning Last Documented On 0 2:54PM ; [facility] Education about changing eat ing habits Last Documented On 0 2:54PM ; [facility] Patient education about high fiber diet Last Documented On 0 2:54PM ; [facility] Patient education about low fat diet Last Documented On 0 2:54PM ; [facility] Patient education about low cholesterol diet Last Documented On 0 2:54PM ; [facility] Patient education about low carbohydrate diet Last Documented On 0 2:54PM ; [facility] Patient education about high protein diet Last Documented On 0 2:54PM ; [facility] Discussed nutritional needs teach healthy choices including fruits and vegetables Last Documented On 0 11:11AM ; [facility] Patient education about a pr oper diet Last Documented On 0 11:11AM ; [facility] Patient education about a pr oper diet Last Documented On 0 11:28AM ; [facility] Patient education about meal planning Last Documented On 0 11:28AM ; [facility] Education about changing eat ing habits Last Documented On 0 11:28AM ; [facility] Patient education about high fiber diet Last Documented On 0 11:28AM ; [facility] Patient education about low fat diet Last Documented On 0 11:28AM ; [facility] Patient education about low cholesterol diet Last Documented On 0 11:28AM ; [facility] Patient education about low carbohydrate diet Last Documented On 0 11:28AM ; [facility] Patient education about high protein diet Last Documented On 0 11:28AM ; [facility] Discussed concerns about exe rcise : promote physical activity Last Documented On 0 11:11AM ; [facility] Education/counseling conduct ed by pharmacist Last Documented On 0 1:41PM ; [facility] Patient states that she lonnie gonzalez [...] own Last Documented On 0 2:08PM ; [facility] Education/counseling conduct ed by pharmacist Last Documented On 9 1:12PM ; [facility] Patient states that she lonnie gonzalez has issues with her inhaler with the spacer. Patient did not bring in inhaler or spacer. Patient was told to bring in inhalers at next scheduled visit for pharmacist to assess inhalation technique. Patient is agreeable Last Documented On 9 1:13PM ; [facility] Patient goals Start using ch deon to help with inhaling dulera Last Documented On 9 2:40PM ; [facility] Patient states that she is g [...] vaccines Last Documented On 9 2:51PM ; [facility] Discussed nutritional needs teach healthy choices including fruits and vegetables Last Documented On 9 9:29AM ; [facility] Patient education about a pr oper diet Last Documented On 9 9:29AM ; [facility] Discussed concerns about exe rcise : promote physical activity Last Documented On 9 9:29AM ; [facility] Work Phone: 1(482) 531-366803-27-2023 Instructions Includes: Instructions for all patient encounters Instructions to patient Intervention and counseling on cessation of tobacco use, 3-10 minutes Discussed medication and nicotine replacement for tobacco cessation Last Documented On 3 8:54AM ; [facility] Intervention and counseling on cessation of tobacco use, 3-10 minutes Discussed medication and nicotine replacement for tobacco cessation Last Documented On 2 1:56PM ; [facility] Intervention and counseling on cessation of tobacco use, 3-10 minutes Last Documented On 0 2:07PM ; [facility] Return to the clinic if cond ition worsens or new symptoms arise Last Documented On 9 1:59PM ; [facility] Intervention and counseling on cessation of tobacco use, 3-10 minutes Last Documented On 9 10:39AM ; [facility] Education and Decision Aids were provided during visit for: Discussed nutritional needs teach healthy choices including fruits and vegetables Last Documented On 3 8:32AM ; [facility] Patient education about a pr oper diet Last Documented On 3 8:32AM ; [facility] Discussed concerns about exe rcise : promote physical activity Last Documented On 3 8:32AM ; [facility] Discussed nutritional needs teach healthy choices including fruits and vegetables Last Documented On 3 11:28AM ; [facility] Patient education about a pr oper diet Last Documented On 3 11:28AM ; [facility] Discussed concerns about exe rcise : promote physical activity Last Documented On 3 11:28AM ; [facility] Discussed nutritional needs teach healthy choices including fruits and vegetables Last Documented On 2 2:01PM ; [facility] Patient education about a pr oper diet Last Documented On 2 2:01PM ; [facility] Discussed concerns about exe rcise : promote physical activity Last Documented On 2 2:01PM ; [facility] Discussed nutritional needs teach healthy choices including fruits and vegetables Last Documented On 2 2:11PM ; [facility] Patient education about a pr oper diet Last Documented On 2 2:11PM ; [facility] Discussed concerns about exe rcise : promote physical activity Last Documented On 2 2:11PM ; [facility] Discussed current self-care methods/coping skills. ~Validated and normalized pt's feelings while assisting patient process recent events. ~Discussed ongoing counseling. ~Discussed lifestyle changes to address chronic illness. ~Supported patient's personal health goals ~wordfinds. walk, read, eat, enjoy my best friesnd Last Documented On 2 5:54PM ; [facility] Discussed nutritional needs teach healthy choices including fruits and vegetables Last Documented On 2 10:04AM ; [facility] Patient education about a pr oper diet Last Documented On 2 10:04AM ; [facility] Discussed concerns about exe rcise : promote physical activity Last Documented On 2 10:04AM ; [facility] Discussed nutritional needs teach healthy choices including fruits and vegetables Last Documented On 2 1:25PM ; [facility] Patient education about a pr oper diet Last Documented On 2 1:25PM ; [facility] Discussed concerns about exe rcise : promote physical activity Last Documented On 2 1:25PM ; [facility] Discussed nutritional needs teach healthy choices including fruits and vegetables Last Documented On 1 10:08AM ; [facility] Patient education about a pr oper diet Last Documented On 1 10:08AM ; [facility] Discussed concerns about exe rcise : promote physical activity Last Documented On 1 10:08AM ; [facility] Discussed nutritional needs teach healthy choices including fruits and vegetables Last Documented On 1 1:12PM ; [facility] Patient education about a pr oper diet Last Documented On 1 1:12PM ; [facility] Patient education about a pr oper diet Last Documented On 1 1:30PM ; [facility] Patient education about meal planning Last Documented On 1 1:30PM ; [facility] Education about changing eat ing habits Last Documented On 1 1:30PM ; [facility] Patient education about high fiber diet Last Documented On 1 1:30PM ; [facility] Patient education about low fat diet Last Documented On 1 1:30PM ; [facility] Patient education about low cholesterol diet Last Documented On 1 1:30PM ; [facility] Patient education about low carbohydrate diet Last Documented On 1 1:30PM ; [facility] Patient education about high protein diet Last Documented On 1 1:30PM ; [facility] Discussed concerns about exe rcise : promote physical activity Last Documented On 1 1:12PM ; [facility] Education/counseling conduct ed by pharmacist Last Documented On 0 1:39PM ; [facility] Vaccination counseling Last Documented On 0 1:39PM ; [facility] Discussed concerns about exe rcise : promote physical activity Last Documented On 0 2:16PM ; [facility] Patient goals decrease short ness of breath episodes Last Documented On 0 2:11PM ; [facility] Patient states that she uses her [...] recently Last Documented On 0 2:24PM ; [facility] Patient education about a pr oper diet Last Documented On 0 2:54PM ; [facility] Patient education about meal planning Last Documented On 0 2:54PM ; [facility] Education about changing eat ing habits Last Documented On 0 2:54PM ; [facility] Patient education about high fiber diet Last Documented On 0 2:54PM ; [facility] Patient education about low fat diet Last Documented On 0 2:54PM ; [facility] Patient education about low cholesterol diet Last Documented On 0 2:54PM ; [facility] Patient education about low carbohydrate diet Last Documented On 0 2:54PM ; [facility] Patient education about high protein diet Last Documented On 0 2:54PM ; [facility] Discussed nutritional needs teach healthy choices including fruits and vegetables Last Documented On 0 11:11AM ; [facility] Patient education about a pr oper diet Last Documented On 0 11:11AM ; [facility] Patient education about a pr oper diet Last Documented On 0 11:28AM ; [facility] Patient education about meal planning Last Documented On 0 11:28AM ; [facility] Education about changing eat ing habits Last Documented On 0 11:28AM ; [facility] Patient education about high fiber diet Last Documented On 0 11:28AM ; [facility] Patient education about low fat diet Last Documented On 0 11:28AM ; [facility] Patient education about low cholesterol diet Last Documented On 0 11:28AM ; [facility] Patient education about low carbohydrate diet Last Documented On 0 11:28AM ; [facility] Patient education about high protein diet Last Documented On 0 11:28AM ; [facility] Discussed concerns about exe rcise : promote physical activity Last Documented On 0 11:11AM ; [facility] Education/counseling conduct ed by pharmacist Last Documented On 0 1:41PM ; [facility] Patient states that she stil l has issues using inhaler. [facility] Rarely uses her rescue inhaler, [...] own Last Documented On 0 2:08PM ; [facility] Education/counseling conduct ed by pharmacist Last Documented On 9 1:12PM ; [facility] Patient states that she stil l has issues with her inhaler with the spacer. Patient did not bring in inhaler or spacer. Patient was told to bring in inhalers at next scheduled visit for pharmacist to assess inhalation technique. Patient is agreeable Last Documented On 9 1:13PM ; [facility] Patient goals Start using ch deon to help with inhaling dulera Last Documented On 9 2:40PM ; [facility] Patient states that she is g [...] vaccines Last Documented On 9 2:51PM ; [facility] Discussed nutritional needs teach healthy choices including fruits and vegetables Last Documented On 9 9:29AM ; [facility] Patient education about a pr oper diet Last Documented On 9 9:29AM ; [facility] Discussed concerns about exe rcise : promote physical activity Last Documented On 9 9:29AM ; [facility] Work Phone: [phone] Instructions Includes: Instructions for all patient encounters Instructions to patient Intervention and counseling on cessation of tobacco use, 3-10 minutes Discussed medication and nicotine replacement for tobacco cessation Last Documented On 3 8:54AM ; [facility] Intervention and counseling on cessation of tobacco use, 3-10 minutes Discussed medication and nicotine replacement for tobacco cessation Last Documented On 2 1:56PM ; [facility] Intervention and counseling on cessation of tobacco use, 3-10 minutes Last Documented On 0 2:07PM ; [facility] Return to the clinic if cond ition worsens or new symptoms arise Last Documented On 9 1:59PM ; [facility] Intervention and counseling on cessation of tobacco use, 3-10 minutes Last Documented On 9 10:39AM ; [facility] Education and Decision Aids were provided during visit for: Discussed nutritional needs teach healthy choices including fruits and vegetables Last Documented On 3 8:32AM ; [facility] Patient education about a pr oper diet Last Documented On 3 8:32AM ; [facility] Discussed concerns about exe rcise : promote physical activity Last Documented On 3 8:32AM ; [facility] Discussed nutritional needs teach healthy choices including fruits and vegetables Last Documented On 3 11:28AM ; [facility] Patient education about a pr oper diet Last Documented On 3 11:28AM ; [facility] Discussed concerns about exe rcise : promote physical activity Last Documented On 3 11:28AM ; [facility] Discussed nutritional needs teach healthy choices including fruits and vegetables Last Documented On 2 2:01PM ; [facility] Patient education about a pr oper diet Last Documented On 2 2:01PM ; [facility] Discussed concerns about exe rcise : promote physical activity Last Documented On 2 2:01PM ; [facility] Discussed nutritional needs teach healthy choices including fruits and vegetables Last Documented On 2 2:11PM ; [facility] Patient education about a pr oper diet Last Documented On 2 2:11PM ; [facility] Discussed concerns about exe rcise : promote physical activity Last Documented On 2 2:11PM ; [facility] Discussed current self-care methods/coping skills. ~Validated and normalized pt's feelings while assisting patient process recent events. ~Discussed ongoing counseling. ~Discussed lifestyle changes to address chronic illness. ~Supported patient's personal health goals ~[employer]finds. walk, read, eat, enjoy my best friesnd Last Documented On 2 5:54PM ; [facility] Discussed nutritional needs teach healthy choices including fruits and vegetables Last Documented On 2 10:04AM ; [facility] Patient education about a pr oper diet Last Documented On 2 10:04AM ; [facility] Discussed concerns about exe rcise : promote physical activity Last Documented On 2 10:04AM ; [facility] Discussed nutritional needs teach healthy choices including fruits and vegetables Last Documented On 2 1:25PM ; [facility] Patient education about a pr oper diet Last Documented On 2 1:25PM ; [facility] Discussed concerns about exe rcise : promote physical activity Last Documented On 2 1:25PM ; [facility] Discussed nutritional needs teach healthy choices including fruits and vegetables Last Documented On 1 10:08AM ; [facility] Patient education about a pr oper diet Last Documented On 1 10:08AM ; [facility] Discussed concerns about exe rcise : promote physical activity Last Documented On 1 10:08AM ; [facility] Discussed nutritional needs teach healthy choices including fruits and vegetables Last Documented On 1 1:12PM ; [facility] Patient education about a pr oper diet Last Documented On 1 1:12PM ; [facility] Patient education about a pr oper diet Last Documented On 1 1:30PM ; [facility] Patient education about meal planning Last Documented On 1 1:30PM ; [facility] Education about changing eat ing habits Last Documented On 1 1:30PM ; [facility] Patient education about high fiber diet Last Documented On 1 1:30PM ; [facility] Patient education about low fat diet Last Documented On 1 1:30PM ; [facility] Patient education about low cholesterol diet Last Documented On 1 1:30PM ; [facility] Patient education about low carbohydrate diet Last Documented On 1 1:30PM ; [facility] Patient education about high protein diet Last Documented On 1 1:30PM ; [facility] Discussed concerns about exe rcise : promote physical activity Last Documented On 1 1:12PM ; [facility] Education/counseling conduct ed by pharmacist Last Documented On 0 1:39PM ; [facility] Vaccination counseling Last Documented On 0 1:39PM ; [facility] Discussed concerns about exe rcise : promote physical activity Last Documented On 0 2:16PM ; [facility] Patient goals decrease short ness of breath episodes Last Documented On 0 2:11PM ; [facility] Patient states that she uses her [...] recently Last Documented On 0 2:24PM ; [facility] Patient education about a pr oper diet Last Documented On 0 2:54PM ; [facility] Patient education about meal planning Last Documented On 0 2:54PM ; [facility] Education about changing eat ing habits Last Documented On 0 2:54PM ; [facility] Patient education about high fiber diet Last Documented On 0 2:54PM ; [facility] Patient education about low fat diet Last Documented On 0 2:54PM ; [facility] Patient education about low cholesterol diet Last Documented On 0 2:54PM ; [facility] Patient education about low carbohydrate diet Last Documented On 0 2:54PM ; [facility] Patient education about high protein diet Last Documented On 0 2:54PM ; [facility] Discussed nutritional needs teach healthy choices including fruits and vegetables Last Documented On 0 11:11AM ; [facility] Patient education about a pr oper diet Last Documented On 0 11:11AM ; [facility] Patient education about a pr oper diet Last Documented On 0 11:28AM ; [facility] Patient education about meal planning Last Documented On 0 11:28AM ; [facility] Education about changing eat ing habits Last Documented On 0 11:28AM ; [facility] Patient education about high fiber diet Last Documented On 0 11:28AM ; [facility] Patient education about low fat diet Last Documented On 0 11:28AM ; [facility] Patient education about low cholesterol diet Last Documented On 0 11:28AM ; [facility] Patient education about low carbohydrate diet Last Documented On 0 11:28AM ; [facility] Patient education about high protein diet Last Documented On 0 11:28AM ; [facility] Discussed concerns about exe rcise : promote physical activity Last Documented On 0 11:11AM ; [facility] Education/counseling conduct ed by pharmacist Last Documented On 0 1:41PM ; [facility] Patient states that she lonnie gonzalez [...] own Last Documented On 0 2:08PM ; [facility] Education/counseling conduct ed by pharmacist Last Documented On 9 1:12PM ; [facility] Patient states that she lonnie gonzalez has issues with her inhaler with the spacer. Patient did not bring in inhaler or spacer. Patient was told to bring in inhalers at next scheduled visit for pharmacist to assess inhalation technique. Patient is agreeable Last Documented On 9 1:13PM ; [facility] Patient goals Start using ch deon to help with inhaling dulera Last Documented On 9 2:40PM ; [facility] Patient states that she is g [...] vaccines Last Documented On 9 2:51PM ; [facility] Discussed nutritional needs teach healthy choices including fruits and vegetables Last Documented On 9 9:29AM ; [facility] Patient education about a pr oper diet Last Documented On 9 9:29AM ; [facility] Discussed concerns about exe rcise : promote physical activity Last Documented On 9 9:29AM ; [facility] Work Phone: [phone] Instructions Includes: Instructions for all patient encounters Instructions to patient Intervention and counseling on cessation of tobacco use, 3-10 minutes Discussed medication and nicotine replacement for tobacco cessation Last Documented On 3 8:54AM ; [facility] Intervention and counseling on cessation of tobacco use, 3-10 minutes Discussed medication and nicotine replacement for tobacco cessation Last Documented On 2 1:56PM ; [facility] Intervention and counseling on cessation of tobacco use, 3-10 minutes Last Documented On 0 2:07PM ; [facility] Return to the clinic if cond ition worsens or new symptoms arise Last Documented On 9 1:59PM ; [facility] Intervention and counseling on cessation of tobacco use, 3-10 minutes Last Documented On 9 10:39AM ; [facility] Education and Decision Aids were provided during visit for: Discussed nutritional needs teach healthy choices including fruits and vegetables Last Documented On 3 8:32AM ; [facility] Patient education about a pr oper diet Last Documented On 3 8:32AM ; [facility] Discussed concerns about exe rcise : promote physical activity Last Documented On 3 8:32AM ; [facility] Discussed nutritional needs teach healthy choices including fruits and vegetables Last Documented On 3 11:28AM ; [facility] Patient education about a pr oper diet Last Documented On 3 11:28AM ; [facility] Discussed concerns about exe rcise : promote physical activity Last Documented On 3 11:28AM ; [facility] Discussed nutritional needs teach healthy choices including fruits and vegetables Last Documented On 2 2:01PM ; [facility] Patient education about a pr oper diet Last Documented On 2 2:01PM ; [facility] Discussed concerns about exe rcise : promote physical activity Last Documented On 2 2:01PM ; [facility] Discussed nutritional needs teach healthy choices including fruits and vegetables Last Documented On 2 2:11PM ; [facility] Patient education about a pr oper diet Last Documented On 2 2:11PM ; [facility] Discussed concerns about exe rcise : promote physical activity Last Documented On 2 2:11PM ; [facility] Discussed current self-care methods/coping skills. ~Validated and normalized pt's feelings while assisting patient process recent events. ~Discussed ongoing counseling. ~Discussed lifestyle changes to address chronic illness. ~Supported patient's personal health goals ~wordfinds. walk, read, eat, enjoy my best friesnd Last Documented On 2 5:54PM ; [facility] Discussed nutritional needs teach healthy choices including fruits and vegetables Last Documented On 2 10:04AM ; [facility] Patient education about a pr oper diet Last Documented On 2 10:04AM ; [facility] Discussed concerns about exe rcise : promote physical activity Last Documented On 2 10:04AM ; [facility] Discussed nutritional needs teach healthy choices including fruits and vegetables Last Documented On 2 1:25PM ; [facility] Patient education about a pr oper diet Last Documented On 2 1:25PM ; [facility] Discussed concerns about exe rcise : promote physical activity Last Documented On 2 1:25PM ; [facility] Discussed nutritional needs teach healthy choices including fruits and vegetables Last Documented On 1 10:08AM ; [facility] Patient education about a pr oper diet Last Documented On 1 10:08AM ; [facility] Discussed concerns about exe rcise : promote physical activity Last Documented On 1 10:08AM ; [facility] Discussed nutritional needs teach healthy choices including fruits and vegetables Last Documented On 1 1:12PM ; [facility] Patient education about a pr oper diet Last Documented On 1 1:12PM ; [facility] Patient education about a pr oper diet Last Documented On 1 1:30PM ; [facility] Patient education about meal planning Last Documented On 1 1:30PM ; [facility] Education about changing eat ing habits Last Documented On 1 1:30PM ; [facility] Patient education about high fiber diet Last Documented On 1 1:30PM ; [facility] Patient education about low fat diet Last Documented On 1 1:30PM ; [facility] Patient education about low cholesterol diet Last Documented On 1 1:30PM ; [facility] Patient education about low carbohydrate diet Last Documented On 1 1:30PM ; [facility] Patient education about high protein diet Last Documented On 1 1:30PM ; [facility] Discussed concerns about exe rcise : promote physical activity Last Documented On 1 1:12PM ; [facility] Education/counseling conduct ed by pharmacist Last Documented On 0 1:39PM ; [facility] Vaccination counseling Last Documented On 0 1:39PM ; [facility] Discussed concerns about exe rcise : promote physical activity Last Documented On 0 2:16PM ; [facility] Patient goals decrease short ness of breath episodes Last Documented On 0 2:11PM ; [facility] Patient states that she uses her [...] recently Last Documented On 0 2:24PM ; [facility] Patient education about a pr oper diet Last Documented On 0 2:54PM ; [facility] Patient education about meal planning Last Documented On 0 2:54PM ; [facility] Education about changing eat ing habits Last Documented On 0 2:54PM ; [facility] Patient education about high fiber diet Last Documented On 0 2:54PM ; [facility] Patient education about low fat diet Last Documented On 0 2:54PM ; [facility] Patient education about low cholesterol diet Last Documented On 0 2:54PM ; [facility] Patient education about low carbohydrate diet Last Documented On 0 2:54PM ; [facility] Patient education about high protein diet Last Documented On 0 2:54PM ; [facility] Discussed nutritional needs teach healthy choices including fruits and vegetables Last Documented On 0 11:11AM ; [facility] Patient education about a pr oper diet Last Documented On 0 11:11AM ; [facility] Patient education about a pr oper diet Last Documented On 0 11:28AM ; [facility] Patient education about meal planning Last Documented On 0 11:28AM ; [facility] Education about changing eat ing habits Last Documented On 0 11:28AM ; [facility] Patient education about high fiber diet Last Documented On 0 11:28AM ; [facility] Patient education about low fat diet Last Documented On 0 11:28AM ; [facility] Patient education about low cholesterol diet Last Documented On 0 11:28AM ; [facility] Patient education about low carbohydrate diet Last Documented On 0 11:28AM ; [facility] Patient education about high protein diet Last Documented On 0 11:28AM ; [facility] Discussed concerns about exe rcise : promote physical activity Last Documented On 0 11:11AM ; [facility] Education/counseling conduct ed by pharmacist Last Documented On 0 1:41PM ; [facility] Patient states that she lonnie gonzalez [...] own Last Documented On 0 2:08PM ; [facility] Education/counseling conduct ed by pharmacist Last Documented On 9 1:12PM ; [facility] Patient states that she lonnie gonzalez has issues with her inhaler with the spacer. Patient did not bring in inhaler or spacer. Patient was told to bring in inhalers at next scheduled visit for pharmacist to assess inhalation technique. Patient is agreeable Last Documented On 9 1:13PM ; [facility] Patient goals Start using ch deon to help with inhaling dulera Last Documented On 9 2:40PM ; [facility] Patient states that she is g [...] vaccines Last Documented On 9 2:51PM ; [facility] Discussed nutritional needs teach healthy choices including fruits and vegetables Last Documented On 9 9:29AM ; [facility] [facility] education about a pr oper diet Last Documented On 9 9:29AM ; [facility] Discussed concerns about exe rcise : promote physical activity Last Documented On 9 9:29AM ; [facility] Work Phone: 1(795) 716-229201-16-2023 Progress note* Progress note Date Encounter Last Documented by 06/18/2022 Medical Established Patient Last documented on 06/18/2022; 12:11 PM, Karla Clark CNP; [facility] Active Problems & Conditions - R94.31 [...] tablet by mouth twice a day DR GAILCIA, 0 days, 0 refills - Benztropine Mesylate [...] EVERY DAY, 30 days, 11 refills - [place] Carbonate 300MG Oral Tablet 300 MG take [...] Bipolar disorder NOS Depression Heart Attack 03/2021 [facility]. Surgical: - Hysterectomy Social History Environmental [...] BP-Sitting L125/78 mmHg BP Cuff SizeRegular Pulse Rate-Cgwdwdh85 bpm Temp-Klshmqve37.6 F Xsuumm68 in Fxqsvn016 lbs 3.2 oz Body Mass Index24.9 kg/m2 Body Surface Area1.7 m2 Oxygen Otudcorybx68 % General Appearance: - Awake. - Alert. [...] clothing: No, unable to get needed child center assistant: No, unable to get needed phone: [...] 60 years or older (3 points) [Pre-DM]. [facility]01-16-2023 Instructions Includes: Instructions for all patient encounters Instructions to patient Intervention and counseling on cessation of tobacco use, 3-10 minutes Discussed medication and nicotine replacement for tobacco cessation Last Documented On 2 1:56PM ; [facility] Intervention and counseling on cessation of tobacco use, 3-10 minutes Last Documented On 0 2:07PM ; [facility] Return to the clinic if cond ition worsens or new symptoms arise Last Documented On 9 1:59PM ; [facility] Intervention and counseling on cessation of tobacco use, 3-10 minutes Last Documented On 9 10:39AM ; [facility] Education and Decision Aids were provided during visit for: Discussed nutritional needs teach healthy choices including fruits and vegetables Last Documented On 3 11:28AM ; [facility] Patient education about a pr oper diet Last Documented On 3 11:28AM ; [facility] Discussed concerns about exe rcise : promote physical activity Last Documented On 3 11:28AM ; [facility] Discussed nutritional needs teach healthy choices including fruits and vegetables Last Documented On 2 2:01PM ; [facility] Patient education about a pr oper diet Last Documented On 2 2:01PM ; [facility] Discussed concerns about exe rcise : promote physical activity Last Documented On 2 2:01PM ; [facility] Discussed nutritional needs teach healthy choices including fruits and vegetables Last Documented On 2 2:11PM ; [facility] Patient education about a pr oper diet Last Documented On 2 2:11PM ; [facility] Discussed concerns about exe rcise : promote physical activity Last Documented On 2 2:11PM ; [facility] Discussed current self-care methods/coping skills. ~Validated and normalized pt's feelings while assisting patient process recent events. ~Discussed ongoing counseling. ~Discussed lifestyle changes to address chronic illness. ~Supported patient's personal health goals ~wordfinds. walk, read, eat, enjoy my best friesnd Last Documented On 2 5:54PM ; [facility] Discussed nutritional needs teach healthy choices including fruits and vegetables Last Documented On 2 10:04AM ; [facility] Patient education about a pr oper diet Last Documented On 2 10:04AM ; [facility] Discussed concerns about exe rcise : promote physical activity Last Documented On 2 10:04AM ; [facility] Discussed nutritional needs teach healthy choices including fruits and vegetables Last Documented On 2 1:25PM ; [facility] Patient education about a pr oper diet Last Documented On 2 1:25PM ; [facility] Discussed concerns about exe rcise : promote physical activity Last Documented On 2 1:25PM ; [facility] Discussed nutritional needs teach healthy choices including fruits and vegetables Last Documented On 1 10:08AM ; [facility] Patient education about a pr oper diet Last Documented On 1 10:08AM ; [facility] Discussed concerns about exe rcise : promote physical activity Last Documented On 1 10:08AM ; [facility] Discussed nutritional needs teach healthy choices including fruits and vegetables Last Documented On 1 1:12PM ; [facility] Patient education about a pr oper diet Last Documented On 1 1:12PM ; [facility] Patient education about a pr oper diet Last Documented On 1 1:30PM ; [facility] Patient education about meal planning Last Documented On 1 1:30PM ; [facility] Education about changing eat ing habits Last Documented On 1 1:30PM ; [facility] Patient education about high fiber diet Last Documented On 1 1:30PM ; [facility] Patient education about low fat diet Last Documented On 1 1:30PM ; [facility] Patient education about low cholesterol diet Last Documented On 1 1:30PM ; [facility] Patient education about low carbohydrate diet Last Documented On 1 1:30PM ; [facility] Patient education about high protein diet Last Documented On 1 1:30PM ; [facility] Discussed concerns about exe rcise : promote physical activity Last Documented On 1 1:12PM ; [facility] Education/counseling conduct ed by pharmacist Last Documented On 0 1:39PM ; [facility] Vaccination counseling Last Documented On 0 1:39PM ; [facility] Discussed concerns about exe rcise : promote physical activity Last Documented On 0 2:16PM ; [facility] Patient goals decrease short ness of breath episodes Last Documented On 0 2:11PM ; [facility] Patient states that she uses her [...] recently Last Documented On 0 2:24PM ; [facility] Patient education about a pr oper diet Last Documented On 0 2:54PM ; [facility] Patient education about meal planning Last Documented On 0 2:54PM ; [facility] Education about changing eat ing habits Last Documented On 0 2:54PM ; [facility] Patient education about high fiber diet Last Documented On 0 2:54PM ; [facility] Patient education about low fat diet Last Documented On 0 2:54PM ; [facility] Patient education about low cholesterol diet Last Documented On 0 2:54PM ; [facility] Patient education about low carbohydrate diet Last Documented On 0 2:54PM ; [facility] Patient education about high protein diet Last Documented On 0 2:54PM ; [facility] Discussed nutritional needs teach healthy choices including fruits and vegetables Last Documented On 0 11:11AM ; [facility] Patient education about a pr oper diet Last Documented On 0 11:11AM ; [facility] Patient education about a pr oper diet Last Documented On 0 11:28AM ; [facility] Patient education about meal planning Last Documented On 0 11:28AM ; [facility] Education about changing eat ing habits Last Documented On 0 11:28AM ; [facility] Patient education about high fiber diet Last Documented On 0 11:28AM ; [facility] Patient education about low fat diet Last Documented On 0 11:28AM ; [facility] Patient education about low cholesterol diet Last Documented On 0 11:28AM ; [facility] Patient education about low carbohydrate diet Last Documented On 0 11:28AM ; [facility] Patient education about high protein diet Last Documented On 0 11:28AM ; [facility] Discussed concerns about exe rcise : promote physical activity Last Documented On 0 11:11AM ; [facility] Education/counseling conduct ed by pharmacist Last Documented On 0 1:41PM ; [facility] Patient states that she lonnie gonzalez [...] own Last Documented On 0 2:08PM ; [facility] Education/counseling conduct ed by pharmacist Last Documented On 9 1:12PM ; [facility] Patient states that she lonnie gonzalez has issues with her inhaler with the spacer. Patient did not bring in inhaler or spacer. Patient was told to bring in inhalers at next scheduled visit for pharmacist to assess inhalation technique. Patient is agreeable Last Documented On 9 1:13PM ; [facility] Patient goals Start using ch deon to help with inhaling dulera Last Documented On 9 2:40PM ; [facility] Patient states that she is g [...] vaccines Last Documented On 9 2:51PM ; [facility] Discussed nutritional needs teach healthy choices including fruits and vegetables Last Documented On 9 9:29AM ; [facility] Patient education about a pr oper diet Last Documented On 9 9:29AM ; [facility] Discussed concerns about exe rcise : promote physical activity Last Documented On 9 9:29AM ; [facility] Work Phone: 1(280) 217-913910-18-2022 Evaluation note Includes: Assessments for all patient encounters Findings Encounter Date Bipolar disorder NOS Established Pita ent with Yin Feliz [facility] 03/20/2022 Schizoaffective disorder Established Patient with Yin Feliz [facility] 03/20/2022 No cough Medical Established Patient with Karla Amber CROOKS 12/20/2021 Visit for: screening for hum an immunodeficiency virus Medical Established Patient with Karla Amber CLINICAL PHARMACY TECHNICIAN 12/20/2021 Z68.24 - Body mass index [BM I] 24.0-24.9, adult Medical Established Patient with Karla Amber CLINICAL PHARMACY TECHNICIAN 12/20/2021 Bipolar disorder NOS Established Pita ent [...] cessation Medical Established Patient with Karla Amber [facility] 07/28/2021 Nicotine dependence Medical Established Patient with Karla Clark [facility] 07/28/2021 Z68.24 - Body mass index [BM I] 24.0-24.9, adult Medical Established Patient with Karla Clark CLINICAL PHARMACY TECHNICIAN 07/28/2021 Assess Colon screening Medical Establish ed Patient with Karla Clark CLINICAL PHARMACY TECHNICIAN 05/08/2021 Diabetes Risk Test Score was four score 05/08/2021 Medical Established Patient with Karla Clark [facility] 05/08/2021 Routine adult history and ph ysical (18-64 yrs) without abnormal findings Medical Established Patient with Karla Clark CLINICAL PHARMACY TECHNICIAN 05/08/2021 Z68.24 - Body mass index [BM I] 24.0-24.9, adult Medical Established Patient with Karla Clark [facility] 05/08/2021 Z68.24 - Body mass index [BM I] 24.0-24.9, adult Medical Established Patient with Karla Clark [facility] 06/17/2020 Overweight Medical Established Patient with Karla Clark [facility] 06/06/2020 Z68.25 - Body mass index [BM I] 25.0-25.9, adult Medical Established Patient with Karla Clark [facility] 06/06/2020 Antiasthmatics CPS Asthma Clinic-Ne w with Karla Amber [facility] 05/06/2020 Assessment of tobacco use CPS Asthma Cli yash-New with Karla Amber [facility] 05/06/2020 Body mass index CPS Asthma Clinic-Ne w with Karlajulius Clark [facility] 05/06/2020 Chronic obstructive pulmonary disease CP S Asthma Clinic-New with Karlajulius Clark [facility] 05/06/2020 Overweight CPS Asthma Clinic-Ne w with Karla Amber [facility] 05/06/2020 Z11.4 - Encounter for screen ing for human immunodeficiency virus [HIV] CPS Ast[facility] Clinic-New with Karla Amber [facility] 05/06/2020 Diabetes Risk Test Score was three score 03/31/2020 Medical Established Patient with Karla Amber [facility] 03/31/2020 Overweight Medical Established Patient with Karla Amber [facility] 03/31/2020 Z68.25 - Body mass index [BM I] 25.0-25.9, adult Medical Established Patient with Karla Amber [facility] 03/31/2020 Encounter for Immunization Nurse Visit with Gary Clark [facility] 03/14/2020 Body mass index Medical Established Patient with Karla Floresen CLINICAL PHARMACY TECHNICIAN 02/26/2020 Overweight Medical Established Patient with Karlajulius Floresen CLINICAL PHARMACY TECHNICIAN 02/26/2020 Overweight Medical Established Patient with Karlajulius Floresen CLINICAL PHARMACY TECHNICIAN 07/23/2019 Z68.27 - Body mass index (BM I) 27.0-27.9, adult Medical Established Patient with Karla Floresen CLINICAL PHARMACY TECHNICIAN 07/23/2019 Occasional asthma CPS- Asthma Clinic- F/U with Karla Amber CLINICAL PHARMACY TECHNICIAN 06/05/2019 Overweight CPS- Asthma Clinic- F/U with Karla Amber CLINICAL PHARMACY TECHNICIAN 06/05/2019 Z68.27 - Body mass index (BM I) 27.0-27.9 adult CPS- Asthma Clinic- F/U with Karla Amber CLINICAL PHARMACY TECHNICIAN 06/05/2019 Occasional asthma CPS Med Review with Karla Amber [facility] 04/23/2019 Overweight CPS Med Review with Karlajulius Floresen [facility] 04/23/2019 Z68.27 - Body mass index (BM I) 27.0-27.9 adult CPS Med Review with Karla Amber [facility] 04/23/2019 Acute pharyngitis Medical Established Patient with Brandy Warren [facility] 04/15/2019 Asthmatic bronchitis with ac [place] exacerbation Medical Established Patient with Brandy Warren [facility] 04/15/2019 Fagerstrom Score was two Medical Establi shed Patient with Brandy Warren [facility] 04/15/2019 PHQ-9: total score was three 04/15/2019 Medical Established Patient with Brandy Warren [facility] 04/15/2019 Body mass index Medical Established Patient with Karla Clark [facility] 03/05/2019 Diabetes Risk Test Score was three score Medical Established Patient with Karla Floresen [facility] 03/05/2019 Overweight Medical Established Patient with Karla Amber [facility] 03/05/2019 Z68.28 - Body mass index (BM I) 28.0-28.9, adult Medical Established Patient with Karla Floresen [facility] 12/22/2018 Assess routine adult history and physical (18 - 64 yrs) Medical Established Patient with Karlajulius Floresen CLINICAL PHARMACY TECHNICIAN 11/06/2018 Overweight Medical Established Patient with Karla Amber CLINICAL PHARMACY TECHNICIAN 11/06/2018 Z68.28 - Body mass index (BM I) 28.0-28.9, adult Medical Established Patient with Karlajulius Floresen CLINICAL PHARMACY TECHNICIAN 11/06/2018 Assess dysphagia Medical Established Patient with Karla Amber [facility] 09/11/2018 Assess routine adult history and physical (18 - 64 yrs) Medical Established Patient with Karla Clark CLINICAL PHARMACY TECHNICIAN 09/11/2018 Assess primary insomnia with sleep apnea Medical Established Patient with Karlajulius Clark CLINICAL PHARMACY TECHNICIAN 09/04/2018 Assess routine adult history and physical (18 - 64 yrs) Medical Established Patient with Karla Amber CLINICAL PHARMACY TECHNICIAN 09/04/2018 Overweight Medical Established Patient with Karla Amber CLINICAL PHARMACY TECHNICIAN 09/04/2018 Z68.29 - Body mass index (BM I) 29.0-29.9, adult Medical Established Patient with Karla Clark CLINICAL PHARMACY TECHNICIAN 09/04/2018 Assess vaginal candidiasis Medical Estab lished Patient with Karlajulius Clark CLINICAL PHARMACY TECHNICIAN 07/31/2018 [facility] Work Phone: [phone]) 682-134810-18-2022 Evaluation note Includes: Assessments for all patient encounters Findings Encounter Date Schizoaffective disorder BH Established Patient with Yin Feliz [facility] 03/20/2022 No cough Medical Established Patient with Karlajulius Clark CLINICAL PHARMACY TECHNICIAN 12/20/2021 Visit for: screening for hum an immunodeficiency virus Medical Established Patient with Karlajulius Clark CLINICAL PHARMACY TECHNICIAN 12/20/2021 Z68.24 - Body mass index [BM I] 24.0-24.9, adult Medical Established Patient with Karlajulius Clark CLINICAL PHARMACY TECHNICIAN 12/20/2021 Bipolar disorder NOS BH Established Pita ent [facility] 11/03/2021 Bipolar schizoaffective disorder BH Esta blished [...] cessation Medical Established Patient with Karla Clark CLINICAL PHARMACY TECHNICIAN 07/28/2021 Nicotine dependence Medical Established Patient with Karla Amber CLINICAL PHARMACY TECHNICIAN 07/28/2021 Z68.24 - Body mass index [BM I] 24.0-24.9, adult Medical Established Patient with Karla Amber [facility] 07/28/2021 Assess Colon screening Medical Establish ed Patient with Karla Clark CLINICAL PHARMACY TECHNICIAN 05/08/2021 Diabetes Risk Test Score was four score 05/08/2021 Medical Established Patient with Karla Floresen CLINICAL PHARMACY TECHNICIAN 05/08/2021 Routine adult history and ph ysical (18-64 yrs) without abnormal findings Medical Established Patient with Karla Amber CLINICAL PHARMACY TECHNICIAN 05/08/2021 Z68.24 - Body mass index [BM I] 24.0-24.9, adult Medical Established Patient with Karla Amber CLINICAL PHARMACY TECHNICIAN 05/08/2021 Z68.24 - Body mass index [BM I] 24.0-24.9, adult Medical Established Patient with Karla Amber CLINICAL PHARMACY TECHNICIAN 06/17/2020 Overweight Medical Established Patient with Karla Amber CLINICAL PHARMACY TECHNICIAN 06/06/2020 Z68.25 - Body mass index [BM I] 25.0-25.9, adult Medical Established Patient with Karlajulius Clark CLINICAL PHARMACY TECHNICIAN 06/06/2020 Antiasthmatics CPS Asthma Clinic-Ne w with Karla Clark CLINICAL PHARMACY TECHNICIAN 05/06/2020 Assessment of tobacco use CPS Asthma Cli yash-New with Karlajulius Clark [facility] 05/06/2020 Body mass index CPS Asthma Clinic-Ne w with Karlajulius Clark [facility] 05/06/2020 Chronic obstructive pulmonary disease CP S Asthma Clinic-New with Karlajulius Clark [facility] 05/06/2020 Overweight CPS Asthma Clinic-Ne w with Karlajulius Clark [facility] 05/06/2020 Z11.4 - Encounter for screen ing for human immunodeficiency virus [HIV] CPS [facility]hma Clinic-New with Karlajulius Clark [facility] 05/06/2020 Diabetes Risk Test Score was three score 03/31/2020 Medical Established Patient with Karlajulius Clark [facility] 03/31/2020 Overweight Medical Established Patient with Karlajulius Clark [facility] 03/31/2020 Z68.25 - Body mass index [BM I] 25.0-25.9, adult Medical Established Patient with Karlajulius Clark CLINICAL PHARMACY TECHNICIAN 03/31/2020 Encounter for Immunization Nurse Visit with Gary Clark CLINICAL PHARMACY TECHNICIAN 03/14/2020 Body mass index Medical Established Patient with Karlajulius Clark CLINICAL PHARMACY TECHNICIAN 02/26/2020 Overweight Medical Established Patient with Karlajulius Clark CLINICAL PHARMACY TECHNICIAN 02/26/2020 Overweight Medical Established Patient with Karlajulius Clark CLINICAL PHARMACY TECHNICIAN 07/23/2019 Z68.27 - Body mass index (BM I) 27.0-27.9, adult Medical Established Patient with Karlajulius Floresen CLINICAL PHARMACY TECHNICIAN 07/23/2019 Occasional asthma CPS- Asthma Clinic- F/U with Karlajulius Floresen CLINICAL PHARMACY TECHNICIAN 06/05/2019 Overweight CPS- Asthma Clinic- F/U with Karla Amber CLINICAL PHARMACY TECHNICIAN 06/05/2019 Z68.27 - Body mass index (BM I) 27.0-27.9 adult CPS- Asthma Clinic- F/U with Karlajulius Floresen CLINICAL PHARMACY TECHNICIAN 06/05/2019 Occasional asthma CPS Med Review with Karlajulius Clark [facility] 04/23/2019 Overweight CPS Med Review with Karla Amber [facility] 04/23/2019 Z68.27 - Body mass index (BM I) 27.0-27.9 adult CPS Med Review with Karlajulius Clark [facility] 04/23/2019 Acute pharyngitis Medical Established Patient with Brandy Warren CLINICAL PHARMACY TECHNICIAN 04/15/2019 Asthmatic bronchitis with ac [place] exacerbation Medical Established Patient with Brandy Warren CLINICAL PHARMACY TECHNICIAN 04/15/2019 Fagerstrom Score was two Medical Establi shed Patient with Brandy Warren CLINICAL PHARMACY TECHNICIAN 04/15/2019 PHQ-9: total score was three 04/15/2019 Medical Established Patient with Brandy Warren [facility] 04/15/2019 Body mass index Medical Established Patient with Karla Clark [facility] 03/05/2019 Diabetes Risk Test Score was three score Medical Established Patient with Karla Amber [facility] 03/05/2019 Overweight Medical Established Patient with Karla Amber [facility] 03/05/2019 Z68.28 - Body mass index (BM I) 28.0-28.9, adult Medical Established Patient with Karla Clark [facility] 12/22/2018 Assess routine adult history and physical (18 - 64 yrs) Medical Established Patient with Karlajulius Floresen CLINICAL PHARMACY TECHNICIAN 11/06/2018 Overweight Medical Established Patient with Karla Amber CLINICAL PHARMACY TECHNICIAN 11/06/2018 Z68.28 - Body mass index (BM I) 28.0-28.9, adult Medical Established Patient with Karla Amber CLINICAL PHARMACY TECHNICIAN 11/06/2018 Assess dysphagia Medical Established Patient with Karla Amber CLINICAL PHARMACY TECHNICIAN 09/11/2018 Assess routine adult history and physical (18 - 64 yrs) Medical Established Patient with Karla Amber CLINICAL PHARMACY TECHNICIAN 09/11/2018 Assess primary insomnia with sleep apnea Medical Established Patient with Karlajulius Floresen CLINICAL PHARMACY TECHNICIAN 09/04/2018 Assess routine adult history and physical (18 - 64 yrs) Medical Established Patient with Karla Amber CLINICAL PHARMACY TECHNICIAN 09/04/2018 Overweight Medical Established Patient with Karla Clark CLINICAL PHARMACY TECHNICIAN 09/04/2018 Z68.29 - Body mass index (BM I) 29.0-29.9, adult Medical Established Patient with Karla Clark CLINICAL PHARMACY TECHNICIAN 09/04/2018 Assess vaginal candidiasis Medical Estab lished Patient with Karla Clark CLINICAL PHARMACY TECHNICIAN 07/31/2018 [facility] Work Phone: 1(872) 463-904710-18-2022 History general Narrative - Reported Includes: Medical History in patient's chart Description Last Updated No previous hospitalizations 03/20/2022 Currently nursing 11/03/2021 [facility] status unknown for sexually tra nsmitted infection 11/03/2021 11/03/2021 Not planning to have a baby in the next 12 months 11/03/2021 Heart Attack 03/2021 [facility] 1 07/09/2020 A recent immunization for flu 05/06/2020 Patient gave verbal consent for teleRoomer Travel th 08/31/2019 History of abnormal electrocardiogram History of asthma 07/31/2018 History of cardiovascular disorder 07/31 History of respiratory disorder 07/31/19 19 History of bipolar disorder NOS 07/31/19 19 History of depression 07/31/2018 History of psychiatric disorders 019 [facility] Work Phone: 1(862) 731-754710-18-2022 History general Narrative - Reported Includes: Medical History in patient's chart Description Last Updated No previous hospitalizations 03/20/2022 Last Documented On 2 2:28PM ; [facility] Currently nursing 11/03/2021 Last Documented On 2 7:00PM ; [facility] status unknown for sexually tra nsmitted infection 11/03/2021 Last Documented On 2 7:00PM ; [facility] 11/03/2021 Last Documented On 2 7:00PM ; [facility] Not planning to have a baby in the next 12 months 11/03/2021 Last Documented On 2 7:00PM ; [facility] Heart Attack 03/2021 [facility] 1 07/09/2020 Last Documented On 1 10:59AM ; [facility] A recent immunization for flu 05/06/2020 Last Documented On 0 7:27PM ; [facility] Patient gave verbal consent for teleheal th 08/31/2019 Last Documented On 0 9:21AM ; [facility] History of abnormal electrocardiogram Last Documented On 9 2:12PM ; [facility] History of asthma 07/31/2018 Last Documented On 9 2:12PM ; [facility] History of cardiovascular disorder 07/31 Last Documented On 9 2:12PM ; [facility] History of respiratory disorder 07/31/19 19 Last Documented On 9 2:12PM ; [facility] History of bipolar disorder NOS 07/31/19 19 Last Documented On 9 2:12PM ; [facility] History of depression 07/31/2018 Last Documented On 9 2:12PM ; [facility] History of psychiatric disorders 019 Last Documented On 9 2:12PM ; [facility] Work Phone: 1([phone]) [phone] History general Narrative - Reported Includes: Medical History in patient's chart Description Last Updated No previous hospitalizations 03/20/2022 Last Documented On 2 2:28PM ; [facility] Currently nursing 11/03/2021 Last Documented On 2 7:00PM ; [facility] status unknown for sexually tra nsmitted infection 11/03/2021 Last Documented On 2 7:00PM ; [facility] 11/03/2021 Last Documented On 2 7:00PM ; [facility] Not planning to have a baby in the next 12 months 11/03/2021 Last Documented On 2 7:00PM ; [facility] Heart Attack 03/2021 [facility] 1 07/09/2020 Last Documented On 1 10:59AM ; [facility] A recent immunization for flu 05/06/2020 Last Documented On 0 7:27PM ; [facility] Patient gave verbal consent for teleheal th 08/31/2019 Last Documented On 0 9:21AM ; [facility] History of abnormal electrocardiogram Last Documented On 9 2:12PM ; [facility] History of asthma 07/31/2018 Last Documented On 9 2:12PM ; [facility] History of cardiovascular disorder 07/31 Last Documented On 9 2:12PM ; [facility] History of respiratory disorder 07/31/19 19 Last Documented On 9 2:12PM ; [facility] History of bipolar disorder NOS 07/31/19 19 Last Documented On 9 2:12PM ; [facility] History of depression 07/31/2018 Last Documented On 9 2:12PM ; [facility] History of psychiatric disorders 019 Last Documented On 9 2:12PM ; [facility] Work Phone: [phone] 715-247810-18-2022 History general Narrative - Reported Includes: Medical History in patient's chart Description Last Updated No previous hospitalizations 03/20/2022 Last Documented On 2 2:28PM ; [facility] Currently nursing 11/03/2021 Last Documented On 2 7:00PM ; [facility] status unknown for sexually tra nsmitted infection 11/03/2021 Last Documented On 2 7:00PM ; [facility] 11/03/2021 Last Documented On 2 7:00PM ; [facility] Not planning to have a baby in the next 12 months 11/03/2021 Last Documented On 2 7:00PM ; [facility] Heart Attack 03/2021 [facility] 1 07/09/2020 Last Documented On 1 10:59AM ; [facility] A recent immunization for flu 05/06/2020 Last Documented On 0 7:27PM ; [facility] Patient gave verbal consent for teleheal th 08/31/2019 Last Documented On 0 9:21AM ; [facility] History of abnormal electrocardiogram Last Documented On 9 2:12PM ; [facility] History of asthma 07/31/2018 Last Documented On 9 2:12PM ; [facility] History of cardiovascular disorder 07/31 Last Documented On 9 2:12PM ; [facility] History of respiratory disorder 07/31/19 19 Last Documented On 9 2:12PM ; [facility] History of bipolar disorder NOS 07/31/19 19 Last Documented On 9 2:12PM ; [facility] History of depression 07/31/2018 Last Documented On 9 2:12PM ; [facility] History of psychiatric disorders 019 Last Documented On 9 2:12PM ; [facility] Work Phone: [phone]) 283-310810-18-2022 History general Narrative - Reported Includes: Medical History in patient's chart Description Last Updated No previous hospitalizations 03/20/2022 Last Documented On 2 2:28PM ; [facility] Currently nursing 11/03/2021 Last Documented On 2 7:00PM ; [facility] status unknown for sexually tra nsmitted infection 11/03/2021 Last Documented On 2 7:00PM ; [facility] 11/03/2021 Last Documented On 2 7:00PM ; [facility] Not planning to have a baby in the next 12 months 11/03/2021 Last Documented On 2 7:00PM ; [facility] Heart Attack 03/2021 [facility] 1 07/09/2020 Last Documented On 1 10:59AM ; [facility] A recent immunization for flu 05/06/2020 Last Documented On 0 7:27PM ; [facility] Patient gave verbal consent for teleheal th 08/31/2019 Last Documented On 0 9:21AM ; [facility] History of abnormal electrocardiogram Last Documented On 9 2:12PM ; [facility] History of asthma 07/31/2018 Last Documented On 9 2:12PM ; [facility] History of cardiovascular disorder 07/31 Last Documented On 9 2:12PM ; [facility] History of respiratory disorder 07/31/19 19 Last Documented On 9 2:12PM ; [facility] History of bipolar disorder NOS 07/31/19 19 Last Documented On 9 2:12PM ; [facility] History of depression 07/31/2018 Last Documented On 9 2:12PM ; [facility] History of psychiatric disorders 019 Last Documented On 9 2:12PM ; [facility] Work Phone: [phone] 744-273810-04-2022 History of Present illness Narrative* Soni Sosa - 03/06/2022 1:00 PM EDT Explained policies and procedure of an echocardiogram/Doppler study. [facility] Phone: [phone]) 122-211007-20-2022 Evaluation note Includes: Assessments for all patient encounters Findings Encounter Date No cough Medical Established Patient with Karla Clark CLINICAL PHARMACY TECHNICIAN 12/20/2021 Visit for: screening for hum an immunodeficiency virus Medical Established Patient with Karla Clark [facility] 12/20/2021 Z68.24 - Body mass index [BM I] 24.0-24.9, adult Medical Established Patient with Karla Clark CLINICAL PHARMACY TECHNICIAN 12/20/2021 Bipolar disorder NOS BH Established Pita ent with Yin Feliz [facility] 11/03/2021 Bipolar schizoaffective disorder BH Esta blished Patient with Yin Feliz [facility] 11/03/2021 PLAN Medical Established Patient with Don Pino MD 11/03/2021 Abnormal electrocardiogram Medical Estab lished Patient with Don Pino MD 11/03/2021 Z68.24 - Body mass index [BM I] 24.0-24.9, adult Medical Established Patient with Don Pino MD 11/03/2021 Cough Medical Established Patient with Karla Amber CLINICAL PHARMACY TECHNICIAN 07/28/2021 Intervention and counseling on cessation of tobacco use, 3-10 minutes Discussed medication and nicotine replacement for tobacco cessation Medical Established Patient with Karla Amber [facility] 07/28/2021 Nicotine dependence Medical Established Patient with Karla Clark [facility] 07/28/2021 Z68.24 - Body mass index [BM I] 24.0-24.9, adult Medical Established Patient with Karla Clark [facility] 07/28/2021 Assess Colon screening Medical Establish ed Patient with Karla Clark [facility] 05/08/2021 Diabetes Risk Test Score was four score 05/08/2021 Medical Established Patient with Karla Clark [facility] 05/08/2021 Routine adult history and ph ysical (18-64 yrs) without abnormal findings Medical Established Patient with Karla Clark [facility] 05/08/2021 Z68.24 - Body mass index [BM I] 24.0-24.9, adult Medical Established Patient with Karlajulius Clark [facility] 05/08/2021 Z68.24 - Body mass index [BM I] 24.0-24.9, adult Medical Established Patient with Karlajulius Clark [facility] 06/17/2020 Overweight Medical Established Patient with Karla Clark [facility] 06/06/2020 Z68.25 - Body mass index [BM I] 25.0-25.9, adult Medical Established Patient with Karlajulius Clark [facility] 06/06/2020 Antiasthmatics CPS Asthma Clinic-Ne w with [facility] 05/06/2020 Assessment of tobacco use CPS Asthma Cli yash-New with [facility] 05/06/2020 Body mass index CPS Asthma Clinic-Ne w with Karla Amber [facility] 05/06/2020 Chronic obstructive pulmonary disease CP S Asthma Clinic-New with [facility] 05/06/2020 Overweight CPS Asthma Clinic-Ne w with [facility] 05/06/2020 Z11.4 - Encounter for screen ing for human immunodeficiency virus [HIV] CPS Asthma Clinic-New with [facility] 05/06/2020 Diabetes Risk Test Score was three score 03/31/2020 Medical Established Patient with Karla Clark [facility] 03/31/2020 Overweight Medical Established Patient with Karla Clark [facility] 03/31/2020 Z68.25 - Body mass index [BM I] 25.0-25.9, adult Medical Established Patient with Karla Clark [facility] 03/31/2020 Encounter for Immunization Nurse Visit with Gary Clark [facility] 03/14/2020 Body mass index Medical Established Patient with Karla Clark [facility] 02/26/2020 Overweight Medical Established Patient with Karla Clark [facility] 02/26/2020 Overweight Medical Established Patient with Karla Clark [facility] 07/23/2019 Z68.27 - Body mass index (BM I) 27.0-27.9, adult Medical Established Patient with Karla Clark [facility] 07/23/2019 Occasional asthma CPS- Asthma Clinic- F/U with Karla Amber [facility] 06/05/2019 Overweight CPS- Asthma Clinic- F/U with Karla Clark [facility] 06/05/2019 Z68.27 - Body mass index (BM I) 27.0-27.9 adult CPS- Asthma Clinic- F/U with Karla Amber [facility] 06/05/2019 Occasional asthma CPS Med Review with Karla Floresen [facility] 04/23/2019 Overweight CPS Med Review with Karla Clark [facility] 04/23/2019 Z68.27 - Body mass index (BM I) 27.0-27.9 adult CPS Med Review with Karla Clark [facility] 04/23/2019 Acute pharyngitis Medical Established Patient with Brandy Serranoer [facility] 04/15/2019 Asthmatic bronchitis with [place] exacerbation Medical Established Patient with Brandy Serranoer [facility] 04/15/2019 Fagerstrom Score was two Medical Establi shed Patient with Brandy Serranoer [facility] 04/15/2019 PHQ-9: total score was three 04/15/2019 Medical Established Patient with Brandy Serranoer [facility] 04/15/2019 Body mass index Medical Established Patient with Karla Clark [facility] 03/05/2019 Diabetes Risk Test Score was three score Medical Established Patient with Karla Amber [facility] 03/05/2019 Overweight Medical Established Patient with Karla Floresen [facility] 03/05/2019 Z68.28 - Body mass index (BM I) 28.0-28.9, adult Medical Established Patient with Karla Floresen [facility] 12/22/2018 Assess routine adult history and physical (18 - 64 yrs) Medical Established Patient with Karlajulius Clark CLINICAL PHARMACY TECHNICIAN 11/06/2018 Overweight Medical Established Patient with Karla Amber CLINICAL PHARMACY TECHNICIAN 11/06/2018 Z68.28 - Body mass index (BM I) 28.0-28.9, adult Medical Established Patient with Karla Amber CLINICAL PHARMACY TECHNICIAN 11/06/2018 Assess dysphagia Medical Established Patient with Karal Amber CLINICAL PHARMACY TECHNICIAN 09/11/2018 Assess routine adult history and physical (18 - 64 yrs) Medical Established Patient with Karla Amber CLINICAL PHARMACY TECHNICIAN 09/11/2018 Assess primary insomnia with sleep apnea Medical Established Patient with Karla Amber CLINICAL PHARMACY TECHNICIAN 09/04/2018 Assess routine adult history and physical (18 - 64 yrs) Medical Established Patient with Karla Amber CLINICAL PHARMACY TECHNICIAN 09/04/2018 Overweight Medical Established Patient with Karla Amber CLINICAL PHARMACY TECHNICIAN 09/04/2018 Z68.29 - Body mass index (BM I) 29.0-29.9, adult Medical Established Patient with Karlajulius Clark CLINICAL PHARMACY TECHNICIAN 09/04/2018 Assess vaginal candidiasis Medical Estab lished Patient with Karlajulius Clark CLINICAL PHARMACY TECHNICIAN 07/31/2018 [facility] Work Phone: [phone]) [phone] Evaluation note Includes: Assessments for all patient encounters Findings Encounter Date Bipolar disorder NOS BH Established Pita ent with Yin Feliz [facility] 11/03/2021 Bipolar schizoaffective disorder BH Esta [...] Medical Establish ed Patient with Karla Amber [facility] 05/08/2021 Diabetes Risk Test Score was four score 05/08/2021 Medical Established Patient with Karla Clark [facility] 05/08/2021 Routine adult history and ph ysical (18-64 yrs) without abnormal findings Medical Established Patient with Karla Clark CLINICAL PHARMACY TECHNICIAN 05/08/2021 Z68.24 - Body mass index [BM I] 24.0-24.9, adult Medical Established Patient with Karla Clark [facility] 05/08/2021 Z68.24 - Body mass index [BM I] 24.0-24.9, adult Medical Established Patient with Karla Clark [facility] 06/17/2020 Overweight Medical Established Patient with Karla Clark [facility] 06/06/2020 Z68.25 - Body mass index [BM I] 25.0-25.9, adult Medical Established Patient with Karla Clark CLINICAL PHARMACY TECHNICIAN 06/06/2020 Antiasthmatics CPS Asthma Clinic-Ne w with Karlajulius Floresen [facility] 05/06/2020 Assessment of tobacco use CPS Asthma Cli yash-New with Karla Amber [facility] 05/06/2020 Body mass index CPS Asthma Clinic-Ne w with Karla Clark [facility] 05/06/2020 Chronic obstructive pulmonary disease CP S Asthma Clinic-New with Karlajulius Clark [facility] 05/06/2020 Overweight CPS Asthma Clinic-Ne w with Karlajulius Floresen [facility] 05/06/2020 Z11.4 - Encounter for screen ing for human immunodeficiency virus [HIV] CPS Asthma Clinic-New with Karla Clark [facility] 05/06/2020 Diabetes Risk Test Score was three score 03/31/2020 Medical Established Patient with Karla Clark [facility] 03/31/2020 Overweight Medical Established Patient with Karla Clark [facility] 03/31/2020 Z68.25 - Body mass index [BM I] 25.0-25.9, adult Medical Established Patient with Karla Clark [facility] 03/31/2020 Encounter for Immunization Nurse Visit with GaryNicolasa [facility] 03/14/2020 Body mass index Medical Established Patient with Karla Amber [facility] 02/26/2020 Overweight Medical Established Patient with Karla Amber [facility] 02/26/2020 Overweight Medical Established Patient with Karla Amber [facility] 07/23/2019 Z68.27 - Body mass index (BM I) 27.0-27.9, adult Medical Established Patient with Karla Amber [facility] 07/23/2019 Occasional asthma CPS- Asthma Clinic- F/U with Karla Clark [facility] 06/05/2019 Overweight CPS- Asthma Clinic- F/U with Karlajulius Clark [facility] 06/05/2019 Z68.27 - Body mass index (BM I) 27.0-27.9 adult CPS- Asthma Clinic- F/U with Karla Clark CLINICAL PHARMACY TECHNICIAN 06/05/2019 Occasional asthma CPS Med Review with Karlajulius Clark [facility] 04/23/2019 Overweight CPS Med Review with Karlajulius Clark [facility] 04/23/2019 Z68.27 - Body mass index (BM I) 27.0-27.9 adult CPS Med Review with Karlajulius Clark [facility] 04/23/2019 Acute pharyngitis Medical Established Patient with Brandy Serranoer CLINICAL PHARMACY TECHNICIAN 04/15/2019 Asthmatic bronchitis with ac [place] exacerbation Medical Established Patient with Brandy Serranoer [facility] 04/15/2019 Fagerstrom Score was two Medical Establi shed Patient with Brandy Kelley [facility] 04/15/2019 PHQ-9: total score was three 04/15/2019 [facility] Body mass index Medical Established Patient with Karla Clark [facility] 03/05/2019 Diabetes Risk Test Score was three score Medical Established Patient with Karla Clark [facility] 03/05/2019 Overweight Medical Established Patient with Karla Amber [facility] 03/05/2019 Z68.28 - Body mass index (BM I) 28.0-28.9, adult Medical Established Patient with Karlajulius Clark [facility] 12/22/2018 Assess routine adult history and physical (18 - 64 yrs) Medical Established Patient with Karlajulius Clark [facility] 11/06/2018 Overweight Medical Established Patient with Karla Amber [facility] 11/06/2018 Z68.28 - Body mass index (BM I) 28.0-28.9, adult Medical Established Patient with Karla Clark [facility] 11/06/2018 Assess dysphagia Medical Established Patient with Karla Amber CLINICAL PHARMACY TECHNICIAN 09/11/2018 Assess routine adult history and physical (18 - 64 yrs) Medical Established Patient with Karla Amber CLINICAL PHARMACY TECHNICIAN 09/11/2018 Assess primary insomnia with sleep apnea Medical Established Patient with Karlajulius Floresen CLINICAL PHARMACY TECHNICIAN 09/04/2018 Assess routine adult history and physical (18 - 64 yrs) Medical Established Patient with Karla Amber CLINICAL PHARMACY TECHNICIAN 09/04/2018 Overweight Medical Established Patient with Karla Amber CNP 09/04/2018 Z68.29 - Body mass index (BM I) 29.0-29.9, adult Medical Established Patient with Karla Clark [facility] 09/04/2018 Assess vaginal candidiasis Medical Estab lished Patient with Karla Clark CLINICAL PHARMACY TECHNICIAN 07/31/2018 [facility] Work Phone: 1([phone]) 324-991706-03-2022 History general Narrative - Reported Includes: Medical History in patient's chart Description Last Updated Currently nursing 11/03/2021 [facility] status unknown for sexually tra nsmitted infection 11/03/2021 11/03/2021 Not planning to have a baby in the next 12 months 11/03/2021 Heart Attack 03/2021 [facility] 1 07/09/2020 A recent immunization for flu 05/06/2020 Patient gave verbal consent for teleheal th 08/31/2019 History of abnormal electrocardiogram History of asthma 07/31/2018 History of cardiovascular disorder 07/31 History of respiratory disorder 07/31/19 19 History of bipolar disorder NOS 07/31/19 19 History of depression 07/31/2018 History of psychiatric disorders 019 [facility] Work Phone: 1(299) 717-644605-13-2022 Note [id number]:[id number] 08-03-2021 Evaluation note* Diagnosis Breast lump on right side at 4 o'clock position Lump or mass in breast documented in this encounter [facility] Work Phone: 1(674) 668-924302-25-2022 Evaluation note Includes: Assessments for all patient encounters Findings Encounter Date Cough Medical Established Patient with Karla Clark CLINICAL PHARMACY TECHNICIAN 07/28/2021 Intervention and counseling on cessation of tobacco use, 3-10 minutes Discussed medication and nicotine replacement for tobacco cessation Medical Established Patient with Karla Clark CLINICAL PHARMACY TECHNICIAN 07/28/2021 Nicotine dependence Medical Established Patient with Karla Clark [facility] 07/28/2021 Z68.24 - Body mass index [BM I] 24.0-24.9, adult Medical Established Patient with Karla Clark [facility] 07/28/2021 Assess Colon screening Medical Establish ed Patient with Karla Clark CNP 05/08/2021 Diabetes Risk Test Score was four score 05/08/2021 Medical Established Patient with Karla Clark [facility] 05/08/2021 Routine adult history and ph ysical (18-64 yrs) without abnormal findings Medical Established Patient with Karla Clark CLINICAL PHARMACY TECHNICIAN 05/08/2021 Z68.24 - Body mass index [BM I] 24.0-24.9, adult Medical Established Patient with Karla Clark CLINICAL PHARMACY TECHNICIAN 05/08/2021 Z68.24 - Body mass index [BM I] 24.0-24.9, adult Medical Established Patient with Karla Amber CLINICAL PHARMACY TECHNICIAN 06/17/2020 Overweight Medical Established Patient with Karla Clark [facility] 06/06/2020 Z68.25 - Body mass index [BM I] 25.0-25.9, adult Medical Established Patient with Karla Amber CLINICAL PHARMACY TECHNICIAN 06/06/2020 Antiasthmatics CPS Asthma Clinic-Ne w with Karlajulius Clark [facility] 05/06/2020 Assessment of tobacco use CPS Asthma Cli yash-New with Karlajulius Clark [facility] 05/06/2020 Body mass index CPS Asthma Clinic-Ne w with Karlajulius Clark [facility] 05/06/2020 Chronic obstructive pulmonary disease CP S Asthma Clinic-New with Karlajulius Clark [facility] 05/06/2020 Overweight CPS Asthma Clinic-Ne w with Karla Amber [facility] 05/06/2020 Z11.4 - Encounter for screen ing for human immunodeficiency virus [HIV] CPS Asthma Clinic-New with Karla Amber [facility] 05/06/2020 Diabetes Risk Test Score was three score 03/31/2020 Medical Established Patient with Karla Floresen [facility] 03/31/2020 Overweight Medical Established Patient with Karla Amber [facility] 03/31/2020 Z68.25 - Body mass index [BM I] 25.0-25.9, adult Medical Established Patient with Karla Clark [facility] 03/31/2020 Encounter for Immunization Nurse Visit with AgryNicolasa [facility] 03/14/2020 Body mass index Medical Established Patient with Karla Amber [facility] 02/26/2020 Overweight Medical Established Patient with Karlajulius Clark [facility] 02/26/2020 Overweight Medical Established Patient with Karla Amber [facility] 07/23/2019 Z68.27 - Body mass index (BM I) 27.0-27.9, adult Medical Established Patient with Karlajulius Clark CLINICAL PHARMACY TECHNICIAN 07/23/2019 Occasional asthma C[facility]/05/2019 Z68.27 - Body mass index (BM I) 27.0-27.9 adult CPS- Asthma Clinic- F/U with Karlajulius Clark [facility] 06/05/2019 Occasional asthma CPS Med Review with Karla Clark [facility] 04/23/2019 Overweight CPS Med Review with Karla Clark [facility] 04/23/2019 Z68.27 - Body mass index (BM I) 27.0-27.9 adult CPS Med Review with Karlajulius Clark [facility] 04/23/2019 Acute pharyngitis Medical [facility]2019 Asthmatic bronchitis with ac [place] exacerbation Medical Established [facility]/15/2019 Fagerstrom Score was two Medical Establi shed [facility]/15/2019 PHQ-9: total score was three 04/15/2019 Medical Established Patient with Brandy [facility] 04/15/2019 Body mass index Medical Established Patient with Karla Clark [facility] 03/05/2019 Diabetes Risk Test Score was three score Medical Established Patient with Karla Clark [facility] 03/05/2019 Overweight Medical Established Patient with Karla [facility] 03/05/2019 Z68.28 - Body mass index (BM I) 28.0-28.9, adult Medical Established Patient with Karla Clark [facility] 12/22/2018 Assess routine adult history and physical (18 - 64 yrs) Medical Established Patient with Karla [facility] 11/06/2018 Overweight Medical Established Patient with Karla [facility] 11/06/2018 Z68.28 - Body mass index (BM I) 28.0-28.9, adult [facility]2018 Assess dysphagia Medical [facility] 09/11/2018 Assess routine adult history and physical (18 - 64 yrs) Medical Established Patient with Karla [facility] 09/11/2018 Assess primary insomnia with sleep apnea Medical Established Patient with Karla [facility] 09/04/2018 Assess routine adult history and physical (18 - 64 yrs) Medical Established Patient with [facility] 09/04/2018 Overweight Medical Established Patient with [facility] 09/04/2018 Z68.29 - Body mass index (BM I) 29.0-29.9, adult Medical Established Patient with Karla Clark CLINICAL PHARMACY TECHNICIAN 09/04/2018 Assess vaginal candidiasis Medical Estab lished Patient with Karla Clark CLINICAL PHARMACY TECHNICIAN 07/31/2018 [facility] Work Phone: 1(214) 801-842110-01-2021 History general Narrative - Reported Includes: Medical History in patient's chart Description Last Updated Heart Attack 03/2021 [facility] 1 07/09/2020 A recent immunization for flu 05/06/2020 Patient gave verbal consent for teleheal 08/31/2019 History of abnormal electrocardiogram History of asthma 07/31/2018 History of cardiovascular disorder 07/31 History of respiratory disorder 07/31/19 19 History of bipolar disorder NOS 07/31/19 19 History of depression 07/31/2018 History of psychiatric disorders 019 [facility] Work Phone: 1(690) 799-802812-04-2020 Reason for referral (narrative)* Date Encounter Description Provider Reason for Referral 05/06/20 [facility] Karla Clark CLINICAL PHARMACY TECHNICIAN Re ferral To Mental Health Team [facility] Work Phone: 1(377) 441-344504-04-2019 Evaluation note Includes: Assessments for all patient encounters Findings Encounter Date Assess routine adult history and physical (18 - 64 yrs) Established Patient with Karla Clark CNP 09/04/2018 Overweight Established Patient with Karla Clark CNP 09/04/2018 Z68.29 - Body mass index (BM I) 29.0-29.9, adult Established Patient with Karla Clark CLINICAL PHARMACY TECHNICIAN 09/04/2018 Assess vaginal candidiasis Established P atient with Karla Clark CLINICAL PHARMACY TECHNICIAN 07/31/2018 [facility] Work Phone: discharge summary Author Reynaldo Kraft [facility] August 20, 2023 12:42pm Note Date/Time August 20, 2023 8:5 0am [facility] [address] [place], [place] [id number] Discharge Summary Signed Patient: Gail Almeida MR#: [id number] : 1955 Acct:[id number] Age/Sex: 67 / F Adm Date: 4 Loc: 1S Room: 9Q6210-[address]: Joe Davis MD Copies to: [...] 2 times total 1 time here in [facility] and another time at a different hospital Past suicide attempts: Denies previous suicidal attempts Previous medications: Reports Seroquel, [place], Zyprexa, Cogentin Alcohol and Drug Use: Denies alcohol use. Denies street drugs. 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 She [...] Important Contact Information You can call [facility] Inpatient Behavioral Health at [phone] any time day or night if you have emergent questions or question regarding discharge instructions. If at any time you are feeling an increase inyour psychiatric symptoms, call your physician or behavioral healthcare provider. If any time you have thoughts of harming yourself or others contact one of the following: Call (available 24/12) Crisis Text Line (available 24/12) text 4HOPE to [phone] [facility]ly [facility] Hope Line (available 8 a.m. Midnight) call [phone] ([phone]) Regular Diet No Activity Restrictions Instructions: Schizoaffective Disorder (DC), [facility] DC Instructions Prescriptions: New lithium [...] mg PO DAILY fluticasone propionate 50 mcg/actuation [place],Suspension 1 spray INTRANASAL BID Rx Instructions: inhale [...] Maximo [Outside] - 09/10/23 8:40 am (A casework supervisor will call you on Saturday08/21/23 between 8:00am and 12:00pm. Psychiatry: Saturday09/10/23 at 8:40am with Dr. Galicia. ) Karla Clark, RODNEY, TARRING MACHINE OPERATOR-C [Referring] - (Contact your PCP with medical needs. ) Documented By: Reynaldo Kraft MD 08/20/23 0850 Signed By: <Electronically signed by Reynaldo Kraft MD> 08/20/23 1242 [facility] Work Phone: Evaluation + Plan note No data available for this section [facility] History of breast biopsy Other postprocedural status documented in this encounter [facility] Work Phone: evaluation note Includes: Assessments for all patient encounters Findings Encounter Date Assess Colon screening Medical Establish ed Patient with Karla Clark CNP 05/08/2021 Diabetes Risk Test Score was four score 05/08/2021 Medical Established Patient with Karla Clark CLINICAL PHARMACY TECHNICIAN 05/08/2021 Routine adult history and ph ysical (18-64 yrs) without abnormal findings Medical Established Patient with Karla Clark CLINICAL PHARMACY TECHNICIAN 05/08/2021 Z68.24 - Body mass index [BM I] 24.0-24.9, adult Medical Established Patient with Karla Clark CLINICAL PHARMACY TECHNICIAN 05/08/2021 Z68.24 - Body mass index [BM I] 24.0-24.9, adult Medical Established Patient with Karla Amber CLINICAL PHARMACY TECHNICIAN 06/17/2020 Overweight Medical Established Patient with Karla Clark CLINICAL PHARMACY TECHNICIAN 06/06/2020 Z68.25 - Body mass index [BM I] 25.0-25.9, adult Medical Established Patient with Karla Amber CLINICAL PHARMACY TECHNICIAN 06/06/2020 Antiasthmatics CPS [facility] Clinic-[facility] w with Karlajulius Clark [facility] 05/06/2020 Assessment of tobacco use CPS Asthma Cli yash-New with Karlajulius Clark CLINICAL PHARMACY TECHNICIAN 05/06/2020 Body mass index CPS [facility] Clinic-Ne w with Karlajulius Clark [facility] 05/06/2020 Chronic obstructive pulmonary disease CP S [facility]hma Clinic-New with Karla Amber [facility] 05/06/2020 Overweight CPS Asthma Clinic-Ne w with Karla Amber [facility] 05/06/2020 Z11.4 - Encounter for screen ing for human immunodeficiency virus [HIV] CPS [facility] Clinic-New with Karla Amber [facility] 05/06/2020 Diabetes Risk Test Score was three score 03/31/2020 Medical Established Patient with Karla Floresen [facility] 03/31/2020 Overweight Medical Established Patient with Karla Amber [facility] 03/31/2020 Z68.25 - Body mass index [BM I] 25.0-25.9, adult Medical Established Patient with Karla Floresen [facility] 03/31/2020 Encounter for Immunization Nurse Visit with GaryNicolasa [facility] 03/14/2020 Body mass index Medical Established Patient with Karla Amber CLINICAL PHARMACY TECHNICIAN 02/26/2020 Overweight Medical Established Patient with Karla Amber CLINICAL PHARMACY TECHNICIAN 02/26/2020 Overweight Medical Established Patient with Karla Amber CLINICAL PHARMACY TECHNICIAN 07/23/2019 Z68.27 - Body mass index (BM I) 27.0-27.9, adult Medical Established Patient with Karlajulius Clark CLINICAL PHARMACY TECHNICIAN 07/23/2019 Occasional asthma CPS- Asthma Clinic- F/U with Karla Clark [facility] 06/05/2019 Overweight [facility] Z68.27 - Body mass index (BM I) 27.0-27.9 adult CPS- Asthma Clinic- F/U with Karlajulius Clark [facility] 06/05/2019 Occasional asthma CPS Med Review with Karla Clark [facility] 04/23/2019 Overweight CPS Med Review with Karla Clark [facility] 04/23/2019 Z68.27 - Body mass index (BM I) 27.0-27.9 adult CPS Med Review with Karlajulius Clark [facility] 04/23/2019 Acute pharyngitis [facility] Asthmatic bronchitis with ac [place] exacerbation Medical Established Patient with Brandy Kelley [facility] 04/15/2019 Fagerstrom Score was two Medical Establi shed [facility]/15/2019 PHQ-9: total score was three 04/15/2019 Medical Established Patient with Brandy [facility] 04/15/2019 Body mass index Medical Established Patient with Karla Clark [facility] 03/05/2019 Diabetes Risk Test Score was three score Medical Established Patient with [facility] 03/05/2019 Overweight Medical Established Patient with [facility] 03/05/2019 Z68.28 - Body mass index (BM I) 28.0-28.9, adult Medical Established Patient with Karla Clark [facility] 12/22/2018 Assess routine adult history and physical (18 - 64 yrs) Medical Established Patient with [facility] 11/06/2018 Overweight Medical Established Patient with [facility] 11/06/2018 Z68.28 - Body mass index (BM I) 28.0-28.9, adult Medical Established Patient with [facility] 11/06/2018 Assess dysphagia Medical [facility] Assess routine adult history and physical (18 - 64 yrs) Medical Established Patient with [facility] 09/11/2018 Assess primary insomnia with sleep apnea Medical Established Patient with [facility] 09/04/2018 Assess routine adult history and physical (18 - 64 yrs) Medical Established Patient with [facility] 09/04/2018 Overweight Medical Established Patient with [facility] 09/04/2018 Z68.29 - Body mass index (BM I) 29.0-29.9, adult Medical Established Patient with Karla Clark CNP 09/04/2018 Assess vaginal candidiasis Medical Estab lished Patient with Karla Clark CNP 07/31/2018 [facility] Work Phone: Evaluation note* Diagnosis Pre-procedure lab exam Pre-procedural laboratory examination documented in this encounter [facility] Work Phone: evaluation note Includes: Assessments for [...] P atient with Karla Clark CNP 07/31/2018 [facility] Work Phone: Evaluation note Includes: Assessments [...] dependence Medical Established Patient with Karla Clark CLINICAL PHARMACY TECHNICIAN 07/28/2021 Z68.24 - Body mass index [BM I] 24.0-24.9, adult Medical Established Patient with Karla Clark CLINICAL PHARMACY TECHNICIAN 07/28/2021 Assess Colon screening Medical Establish ed Patient with Karla Clark CLINICAL PHARMACY TECHNICIAN 05/08/2021 Diabetes Risk Test Score was four score 05/08/2021 Medical Established Patient with Karla Clark CNP 05/08/2021 Routine adult history and ph ysical (18-64 yrs) without abnormal findings Medical Established Patient with Karla Clark CLINICAL PHARMACY TECHNICIAN 05/08/2021 Z68.24 - Body mass index [BM I] 24.0-24.9, adult Medical Established Patient with Karla Clark CLINICAL PHARMACY TECHNICIAN 05/08/2021 Z68.24 - Body mass index [BM I] 24.0-24.9, adult Medical Established Patient with Karla Amber CLINICAL PHARMACY TECHNICIAN 06/17/2020 Overweight Medical Established Patient with Karla Clark CLINICAL PHARMACY TECHNICIAN 06/06/2020 Z68.25 - Body mass index [BM I] 25.0-25.9, adult Medical Established Patient with Karla Floresen CLINICAL PHARMACY TECHNICIAN 06/06/2020 Antiasthmatics CPS Asthma Clinic-Ne w with Karla Amber [facility] 05/06/2020 Assessment of tobacco use CPS Asthma Cli yash-New with Karla Amber [facility] 05/06/2020 Body mass index CPS [facility] Clinic-Ne w with Karlajulius Clark [facility] 05/06/2020 Chronic obstructive pulmonary disease CP S [facility] Clinic-New with Karla Amber [facility] 05/06/2020 Overweight CPS Asthma Clinic-Ne w with Karla Amber [facility] 05/06/2020 Z11.4 - Encounter for screen ing for human immunodeficiency virus [HIV] CPS [facility] Clinic-New with Karla Floresen [facility] 05/06/2020 Diabetes Risk Test Score was three score 03/31/2020 Medical Established Patient with Karla Floresen [facility] 03/31/2020 Overweight Medical Established Patient with Karla Floresen [facility] 03/31/2020 Z68.25 - Body mass index [BM I] 25.0-25.9, adult Medical Established Patient with Karla Clark [facility] 03/31/2020 Encounter for Immunization Nurse Visit with GaryNicolasa [facility] 03/14/2020 Body mass index Medical Established Patient with Karla Amber CLINICAL PHARMACY TECHNICIAN 02/26/2020 Overweight Medical Established Patient with Karla Amber CLINICAL PHARMACY TECHNICIAN 02/26/2020 Overweight Medical Established Patient with Karla Amber CLINICAL PHARMACY TECHNICIAN 07/23/2019 Z68.27 - Body mass index (BM I) 27.0-27.9, adult Medical Established Patient with Karla Amber CLINICAL PHARMACY TECHNICIAN 07/23/2019 Occasional asthma CPS- Asthma Clinic- F/U with Karlajulius Clark CLINICAL PHARMACY TECHNICIAN 06/05/2019 Overweight CPS- Asthma Clinic- F/U with Karla Clark CLINICAL PHARMACY TECHNICIAN 06/05/2019 Z68.27 - Body mass index (BM I) 27.0-27.9 adult CPS- Asthma Clinic- F/U with Karla Amber [facility] 06/05/2019 Occasional asthma CPS Med Review with Karlajulius Clark [facility] 04/23/2019 Overweight CPS Med Review with Karlajulius Clark [facility] 04/23/2019 Z68.27 - Body mass index (BM I) 27.0-27.9 adult CPS Med Review with Karlajulius Floresen [facility] 04/23/2019 Acute pharyngitis Medical Established Patient with Brandy Warren CLINICAL PHARMACY TECHNICIAN 04/15/2019 Asthmatic bronchitis with ac [place] exacerbation Medical Established Patient with Brandy Warren [facility] 04/15/2019 Fagerstrom Score was two Medical Establi shed Patient with Brandy Serranoer [facility] 04/15/2019 PHQ-9: total score was three 04/15/2019 [facility] Body mass index Medical Established Patient with Karla Clark [facility] 03/05/2019 Diabetes Risk Test Score was three score Medical Established Patient with Karlajulius Clark [facility] 03/05/2019 Overweight Medical Established Patient with Karla Amber [facility] 03/05/2019 Z68.28 - Body mass index (BM I) 28.0-28.9, adult Medical Established Patient with Karlajulius Clark [facility] 12/22/2018 Assess routine adult history and physical (18 - 64 yrs) Medical Established Patient with Karla Amber [facility] 11/06/2018 Overweight Medical Established Patient with Karla Amber [facility] 11/06/2018 Z68.28 - Body mass index (BM I) 28.0-28.9, adult Medical Established Patient with Karla Amber [facility] 11/06/2018 Assess dysphagia Medical Established Patient with Karla Amber [facility] 09/11/2018 Assess routine adult history and physical (18 - 64 yrs) Medical Established Patient with Karla Amber [facility] 09/11/2018 Assess primary insomnia with sleep apnea Medical Established Patient with Karla Amber [facility] 09/04/2018 Assess routine adult history and physical (18 - 64 yrs) Medical Established Patient with Karla Amber CLINICAL PHARMACY TECHNICIAN 09/04/2018 Overweight Medical Established Patient with Karla Amber [facility] 09/04/2018 Z68.29 - Body mass index (BM I) 29.0-29.9, adult Medical Established Patient with Karla Amber CLINICAL PHARMACY TECHNICIAN 09/04/2018 Assess vaginal candidiasis Medical Estab lished Patient with Karla Amber CLINICAL PHARMACY TECHNICIAN 07/31/2018 [facility] Work Phone: Evaluation note* Diagnosis Pre-operative clearance Preoperative examination, unspecified Abnormal EKG Nonspecific abnormal electrocardiogram (ECG) (EKG) History of NH (myocardial infarction) Old myocardial infarction documented in this encounter [facility] Work Phone: evaluation note Includes: Assessments for all patient encounters Findings Encounter Date [H92.02 - Otalgia, left ear] earache Med ical Established Patient with Karla Amber CLINICAL PHARMACY TECHNICIAN 06/18/2022 Last Documented On 3 12:11PM ; [facility] [M79.604 - Pain in right leg ] pain in right leg Medical Established Patient with Karlajulius Clark CLINICAL PHARMACY TECHNICIAN 06/18/2022 Last Documented On 3 12:11PM ; [facility] [Z68.24 - Body mass index [B NH] 24.0-24.9, adult] assessment of body mass index Medical Established Patient with Karla Clark CLINICAL PHARMACY TECHNICIAN 06/18/2022 Last Documented On 3 12:11PM ; [facility] Assessment of tobacco use Medical Establ ished Patient with Karla Amber CLINICAL PHARMACY TECHNICIAN 06/18/2022 Last Documented On 3 12:11PM ; [facility] Diabetes Risk Test Score was four score 06/18/2022 Medical Established Patient with Karla Clark CLINICAL PHARMACY TECHNICIAN 06/18/2022 Last Documented On 3 12:11PM ; [facility] Schizoaffective disorder Established Patient with Yin Feliz LPCC-S 03/20/2022 Last Documented On 2 12:13AM ; [facility] No cough Medical Established Patient with Karlajulius Clark CLINICAL PHARMACY TECHNICIAN 12/20/2021 Last Documented On 2 3:12PM ; [facility] Visit for: screening for hum an immunodeficiency virus Medical Established Patient with Karla Amber CLINICAL PHARMACY TECHNICIAN 12/20/2021 Last Documented On 2 3:12PM ; [facility] Z68.24 - Body mass index [BM I] 24.0-24.9, adult Medical Established Patient with Karla Amber CLINICAL PHARMACY TECHNICIAN 12/20/2021 Last Documented On 2 3:12PM ; [facility] Bipolar disorder NOS BH Established Patient with Yin Feliz LPCC-S 11/03/2021 Last Documented On 2 7:00PM ; [facility] Bipolar schizoaffective disorder BH Esta blished Patient with Yin Feliz LPCC-S 11/03/2021 Last Documented On 2 7:00PM ; [facility] PLAN Medical Established Patient with Don Pino MD 11/03/2021 Last Documented On 2 10:40AM ; [facility] Abnormal electrocardiogram Medical Estab lished Patient with Don Pino MD 11/03/2021 Last Documented On 2 10:40AM ; [facility] Z68.24 - Body mass index [BM I] 24.0-24.9, adult Medical Established Patient with Don Pino MD 11/03/2021 Last Documented On 2 10:40AM ; [facility] Cough Medical Established Patient with Karla Amber CLINICAL PHARMACY TECHNICIAN 07/28/2021 Last Documented On 2 2:01PM ; [facility] Intervention and counseling on cessation of tobacco use, 3-10 minutes Discussed medication and nicotine replacement for tobacco cessation Medical Established Patient with Karla Amber CLINICAL PHARMACY TECHNICIAN 07/28/2021 Last Documented On 2 2:01PM ; [facility] Nicotine dependence Medical Established Patient with Karla Amber CLINICAL PHARMACY TECHNICIAN 07/28/2021 Last Documented On 2 2:01PM ; [facility] Z68.24 - Body mass index [BM I] 24.0-24.9, adult Medical Established Patient with Karla Amber CLINICAL PHARMACY TECHNICIAN 07/28/2021 Last Documented On 2 2:01PM ; [facility] Assess Colon screening Medical Established Patie nt with Karla Amber CLINICAL PHARMACY TECHNICIAN 05/08/2021 Last Documented On 1 10:59AM ; [facility] Diabetes Risk Test Score was four score 05/08/2021 Medical Established Patient with Karla Amber CLINICAL PHARMACY TECHNICIAN 05/08/2021 Last Documented On 1 10:59AM ; [facility] Routine adult history and ph ysical (18-64 yrs) without abnormal findings Medical Established Patient with Karla Amber CLINICAL PHARMACY TECHNICIAN 05/08/2021 Last Documented On 1 10:59AM ; [facility] Z68.24 - Body mass index [BM I] 24.0-24.9, adult Medical Established Patient with Karla Amber CLINICAL PHARMACY TECHNICIAN 05/08/2021 Last Documented On 1 10:59AM ; [facility] Z68.24 - Body mass index [BM I] 24.0-24.9, adult Medical Established Patient with Karla Amber CLINICAL PHARMACY TECHNICIAN 06/17/2020 Last Documented On 1 10:30AM ; [facility] Overweight Medical Established Patient with Karla Amber CLINICAL PHARMACY TECHNICIAN 06/06/2020 Last Documented On 1 2:06PM ; [facility] Z68.25 - Body mass index [BM I] 25.0-25.9, adult Medical Established Patient with Karla Amber CLINICAL PHARMACY TECHNICIAN 06/06/2020 Last Documented On 1 2:06PM ; [facility] Antiasthmatics [facility] Asthma Clinic-New with Karla Amber CLINICAL PHARMACY TECHNICIAN 05/06/2020 Last Documented On 0 7:27PM ; [facility] Assessment of tobacco use CPS Asthma Clinic-New with Karla Amber CLINICAL PHARMACY TECHNICIAN 05/06/2020 Last Documented On 0 7:27PM ; [facility] Body mass index CPS Asthma Clinic-New with Karla Amber CLINICAL PHARMACY TECHNICIAN 05/06/2020 Last Documented On 0 7:27PM ; [facility] Chronic obstructive pulmonary disease CP S [facility] Clinic-New with Karla Amber CLINICAL PHARMACY TECHNICIAN 05/06/2020 Last Documented On 0 7:27PM ; [facility] Overweight CPS Asthma Clinic-New with Karla Amber CLINICAL PHARMACY TECHNICIAN 05/06/2020 Last Documented On 0 7:27PM ; [facility] Z11.4 - Encounter for screen ing for human immunodeficiency virus [HIV] CPS Ast[facility] Clinic-New with Karla Amber CLINICAL PHARMACY TECHNICIAN 05/06/2020 Last Documented On 0 7:27PM ; [facility] Diabetes Risk Test Score was three score 03/31/2020 Medical Established Patient with Karla Clark CLINICAL PHARMACY TECHNICIAN 03/31/2020 Last Documented On 0 3:22PM ; [facility] Overweight Medical Established Patient with Karla Clark CLINICAL PHARMACY TECHNICIAN 03/31/2020 Last Documented On 0 3:22PM ; [facility] Z68.25 - Body mass index [BM I] 25.0-25.9, adult Medical Established Patient with Karla Clark CLINICAL PHARMACY TECHNICIAN 03/31/2020 Last Documented On 0 3:22PM ; [facility] Encounter for Immunization Nurse Visit with Gary lCark CLINICAL PHARMACY TECHNICIAN 03/14/2020 Last Documented On 0 5:11PM ; [facility] Body mass index Medical Established Patient with Karla Clark CLINICAL PHARMACY TECHNICIAN 02/26/2020 Last Documented On 0 1:18PM ; [facility] Overweight Medical Established Patient with Karla Clark CLINICAL PHARMACY TECHNICIAN 02/26/2020 Last Documented On 0 1:18PM ; [facility] Overweight Medical Established Patient with Karla Clark CLINICAL PHARMACY TECHNICIAN 07/23/2019 Last Documented On 0 2:33PM ; [facility] Z68.27 - Body mass index (BM I) 27.0-27.9, adult Medical Established Patient with Karla Clark CLINICAL PHARMACY TECHNICIAN 07/23/2019 Last Documented On 0 2:33PM ; [facility] Occasional asthma CPS- Asthma Clinic- F/U with A french Clark CLINICAL PHARMACY TECHNICIAN 06/05/2019 Last Documented On 0 7:04PM ; [facility] Overweight CPS- Asthma Clinic- F/U with Alta Clark CLINICAL PHARMACY TECHNICIAN 06/05/2019 Last Documented On 0 7:04PM ; [facility] Z68.27 - Body mass index (BM I) 27.0-27.9 adult CPS- Asthma Clinic- F/U with Karla Clark CLINICAL PHARMACY TECHNICIAN 06/05/2019 Last Documented On 0 7:04PM ; [facility] Occasional asthma CPS Med Review with Karlajulius dinh CLINICAL PHARMACY TECHNICIAN 04/23/2019 Last Documented On 9 4:01PM ; [facility] Overweight CPS Med Review with Karlajulius Floresen CLINICAL PHARMACY TECHNICIAN 04/23/2019 Last Documented On 9 4:01PM ; [facility] Z68.27 - Body mass index (BM I) 27.0-27.9 adult CPS Med Review with Karlajulius Floresen CLINICAL PHARMACY TECHNICIAN 04/23/2019 Last Documented On 9 4:01PM ; [facility] Acute pharyngitis Medical Established Patient wi th Brandy Kelley CLINICAL PHARMACY TECHNICIAN 04/15/2019 Last Documented On 9 12:31PM ; [facility] Asthmatic bronchitis with ac [place] exacerbation Medical Established Patient with Brandy Warren CLINICAL PHARMACY TECHNICIAN 04/15/2019 Last Documented On 9 12:31PM ; [facility] Fagerstrom Score was two Medical Established Pat ient with Brandy Warren CLINICAL PHARMACY TECHNICIAN 04/15/2019 Last Documented On 9 12:31PM ; [facility] PHQ-9: total score was three 04/15/2019 Medical Established Patient with Brandy Warren CLINICAL PHARMACY TECHNICIAN 04/15/2019 Last Documented On 9 12:31PM ; [facility] Body mass index Medical Established Patient with Karlajulius Floresen CLINICAL PHARMACY TECHNICIAN 03/05/2019 Last Documented On 9 10:27AM ; [facility] Diabetes Risk Test Score was three score Medical Established Patient with Karla Amber CLINICAL PHARMACY TECHNICIAN 03/05/2019 Last Documented On 9 10:27AM ; [facility] Overweight Medical Established Patient with Karla Amber CLINICAL PHARMACY TECHNICIAN 03/05/2019 Last Documented On 9 10:27AM ; [facility] Z68.28 - Body mass index (BM I) 28.0-28.9, adult Medical Established Patient with Karla Amber CLINICAL PHARMACY TECHNICIAN 12/22/2018 Last Documented On 9 10:32AM ; [facility] Assess routine adult history and physical (18 - 64 yrs) Medical Established Patient with Karla Amber CLINICAL PHARMACY TECHNICIAN 11/06/2018 Last Documented On 9 2:26PM ; [facility] Overweight Medical Established Patient with Karla Amber CLINICAL PHARMACY TECHNICIAN 11/06/2018 Last Documented On 9 2:26PM ; [facility] Z68.28 - Body mass index (BM I) 28.0-28.9, adult Medical Established Patient with Karla Amber CLINICAL PHARMACY TECHNICIAN 11/06/2018 Last Documented On 9 2:26PM ; [facility] Assess dysphagia Medical Established Patient wit h Karla Amber CLINICAL PHARMACY TECHNICIAN 09/11/2018 Last Documented On 9 10:53AM ; [facility] Assess routine adult history and physical (18 - 64 yrs) Medical Established Patient with Karla Amber CLINICAL PHARMACY TECHNICIAN 09/11/2018 Last Documented On 9 10:53AM ; [facility] Assess primary insomnia with sleep apnea Medical Established Patient with Karla Amber CLINICAL PHARMACY TECHNICIAN 09/04/2018 Last Documented On 9 2:23PM ; [facility] Assess routine adult history and physical (18 - 64 yrs) Medical Established Patient with Karla Amber CLINICAL PHARMACY TECHNICIAN 09/04/2018 Last Documented On 9 2:23PM ; [facility] Overweight Medical Established Patient with Karla Amber CLINICAL PHARMACY TECHNICIAN 09/04/2018 Last Documented On 9 2:23PM ; [facility] Z68.29 - Body mass index (BM I) 29.0-29.9, adult Medical Established Patient with Karla Amber CLINICAL PHARMACY TECHNICIAN 09/04/2018 Last Documented On 9 2:23PM ; [facility] Assess vaginal candidiasis Medical Estab lished Patient with Karla Amber CLINICAL PHARMACY TECHNICIAN 07/31/2018 Last Documented On 9 2:12PM ; [facility] Work Phone: Evaluation note* Diagnosis Cutaneous candidiasis Candidiasis of skin and nails Screening for malignant neoplasm of cervix Screening for malignant neoplasm of the cervix documented in this encounter [facility] Work Phone: evaluation note Includes: Assessments for all patient encounters Findings Encounter Date [M25.569 - Pain in unspecifi ed knee] arthralgia of knee / patella / tibia / fibula Medical Established Patient with Karlajulius Clark CLINICAL PHARMACY TECHNICIAN 08/27/2022 Last Documented On 3 8:56AM ; [facility] [Z68.24 - Body mass index [B NH] 24.0-24.9, adult] assessment of body mass index Medical Established Patient with Karla Clark CLINICAL PHARMACY TECHNICIAN 08/27/2022 Last Documented On 3 8:56AM ; [facility] Intervention and counseling on cessation of tobacco use, 3-10 minutes Discussed medication and nicotine replacement for tobacco cessation Medical Established Patient with Karla Clark CLINICAL PHARMACY TECHNICIAN 08/27/2022 Last Documented On 3 8:56AM ; [facility] Nicotine dependence Medical Established Patient with Karla Clark CLINICAL PHARMACY TECHNICIAN 08/27/2022 Last Documented On 3 8:56AM ; [facility] Visit for routine adult H&P without abnormal findings Medical Established Patient with Karla Clark CLINICAL PHARMACY TECHNICIAN 08/27/2022 Last Documented On 3 8:56AM ; [facility] [H92.02 - Otalgia, left ear] earache Med ical Established Patient with Karla Clark CLINICAL PHARMACY TECHNICIAN 06/18/2022 Last Documented On 3 12:11PM ; [facility] [M79.604 - Pain in right leg ] pain in right leg Medical Established Patient with Karla Clark CLINICAL PHARMACY TECHNICIAN 06/18/2022 Last Documented On 3 12:11PM ; [facility] [Z68.24 - Body mass index [B NH] 24.0-24.9, adult] assessment of body mass index Medical Established Patient with Karla Clark CLINICAL PHARMACY TECHNICIAN 06/18/2022 Last Documented On 3 12:11PM ; [facility] Assessment of tobacco use Medical Establ ished Patient with Karla Clark CLINICAL PHARMACY TECHNICIAN 06/18/2022 Last Documented On 3 12:11PM ; [facility] Diabetes Risk Test Score was four score 06/18/2022 Medical Established Patient with Karla Clark CLINICAL PHARMACY TECHNICIAN 06/18/2022 Last Documented On 3 12:11PM ; [facility] Schizoaffective disorder Established Patient with Yin Feliz [facility] 03/20/2022 Last Documented On 2 12:13AM ; [facility] No cough Medical Established Patient with Karla Clark CLINICAL PHARMACY TECHNICIAN 12/20/2021 Last Documented On 2 3:12PM ; [facility] Visit for: screening for hum an immunodeficiency virus Medical Established Patient with Karlajulius Clark CLINICAL PHARMACY TECHNICIAN 12/20/2021 Last Documented On 2 3:12PM ; [facility] Z68.24 - Body mass index [BM I] 24.0-24.9, adult Medical Established Patient with Karla Clark CLINICAL PHARMACY TECHNICIAN 12/20/2021 Last Documented On 2 3:12PM ; [facility] Bipolar disorder NOS BH Established Patient with Yin Feliz [facility]-S 11/03/2021 Last Documented On 2 7:00PM ; [facility] Bipolar schizoaffective disorder BH Esta blished Patient with Yin Feliz LPCC-S 11/03/2021 Last Documented On 2 7:00PM ; [facility] PLAN Medical Established Patient with Don Pino MD 11/03/2021 Last Documented On 2 10:40AM ; [facility] Abnormal electrocardiogram Medical Estab lished Patient with Don Pino MD 11/03/2021 Last Documented On 2 10:40AM ; [facility] Z68.24 - Body mass index [BM I] 24.0-24.9, adult Medical Established Patient with Don Pino MD 11/03/2021 Last Documented On 2 10:40AM ; [facility] Cough Medical Established Patient with Karla Clark CLINICAL PHARMACY TECHNICIAN 07/28/2021 Last Documented On 2 2:01PM ; [facility] Intervention and counseling on cessation of tobacco use, 3-10 minutes Discussed medication and nicotine replacement for tobacco cessation Medical Established Patient with Karla Clark CLINICAL PHARMACY TECHNICIAN 07/28/2021 Last Documented On 2 2:01PM ; [facility] Nicotine dependence Medical Established Patient with Karlajulius Clark CLINICAL PHARMACY TECHNICIAN 07/28/2021 Last Documented On 2 2:01PM ; [facility] Z68.24 - Body mass index [BM I] 24.0-24.9, adult Medical Established Patient with Karla Amber CLINICAL PHARMACY TECHNICIAN 07/28/2021 Last Documented On 2 2:01PM ; [facility] Assess Colon screening Medical Established Patie nt with Karla Amber CLINICAL PHARMACY TECHNICIAN 05/08/2021 Last Documented On 1 10:59AM ; [facility] Diabetes Risk Test Score was four score 05/08/2021 Medical Established Patient with Karla Amber CLINICAL PHARMACY TECHNICIAN 05/08/2021 Last Documented On 1 10:59AM ; [facility] Routine adult history and ph ysical (18-64 yrs) without abnormal findings Medical Established Patient with Karla Amber CLINICAL PHARMACY TECHNICIAN 05/08/2021 Last Documented On 1 10:59AM ; [facility] Z68.24 - Body mass index [BM I] 24.0-24.9, adult Medical Established Patient with Karla Amber CLINICAL PHARMACY TECHNICIAN 05/08/2021 Last Documented On 1 10:59AM ; [facility] Z68.24 - Body mass index [BM I] 24.0-24.9, adult Medical Established Patient with Karla Amber CLINICAL PHARMACY TECHNICIAN 06/17/2020 Last Documented On 1 10:30AM ; [facility] Overweight Medical Established Patient with Karla Amber CLINICAL PHARMACY TECHNICIAN 06/06/2020 Last Documented On 1 2:06PM ; [facility] Z68.25 - Body mass index [BM I] 25.0-25.9, adult Medical Established Patient with Karla Amber CLINICAL PHARMACY TECHNICIAN 06/06/2020 Last Documented On 1 2:06PM ; [facility] Antiasthmatics [facility] Asthma Clinic-New with Karla Amber CLINICAL PHARMACY TECHNICIAN 05/06/2020 Last Documented On 0 7:27PM ; [facility] Assessment of tobacco use [facility] Clinic-New with Karla Amber CLINICAL PHARMACY TECHNICIAN 05/06/2020 Last Documented On 0 7:27PM ; [facility] Body mass index [facility] Clinic-New with Karla Amber CLINICAL PHARMACY TECHNICIAN 05/06/2020 Last Documented On 0 7:27PM ; [facility] Chronic obstructive pulmonary disease CP S [facility]-New with Karla Amber CLINICAL PHARMACY TECHNICIAN 05/06/2020 Last Documented On 0 7:27PM ; [facility] Overweight CPS [facility]-New with Karla Floresen CLINICAL PHARMACY TECHNICIAN 05/06/2020 Last Documented On 0 7:27PM ; [facility] Z11.4 - Encounter for screen ing for human immunodeficiency virus [HIV] CPS [facility]-New with Karlajulius Floresen CLINICAL PHARMACY TECHNICIAN 05/06/2020 Last Documented On 0 7:27PM ; [facility] Diabetes Risk Test Score was three score 03/31/2020 Medical Established Patient with Karla Amber CLINICAL PHARMACY TECHNICIAN 03/31/2020 Last Documented On 0 3:22PM ; [facility] Overweight Medical Established Patient with Karlajulius Floresen CLINICAL PHARMACY TECHNICIAN 03/31/2020 Last Documented On 0 3:22PM ; [facility] Z68.25 - Body mass index [BM I] 25.0-25.9, adult Medical Established Patient with Karla Floresen CLINICAL PHARMACY TECHNICIAN 03/31/2020 Last Documented On 0 3:22PM ; [facility] Encounter for Immunization Nurse Visit with Gary Clark CLINICAL PHARMACY TECHNICIAN 03/14/2020 Last Documented On 0 5:11PM ; [facility] Body mass index Medical Established Patient with Karla Floresen CLINICAL PHARMACY TECHNICIAN 02/26/2020 Last Documented On 0 1:18PM ; [facility] Overweight Medical Established Patient with Karlajulius Floresen CLINICAL PHARMACY TECHNICIAN 02/26/2020 Last Documented On 0 1:18PM ; [facility] Overweight Medical Established Patient with Karla Floresen CLINICAL PHARMACY TECHNICIAN 07/23/2019 Last Documented On 0 2:33PM ; [facility] Z68.27 - Body mass index (BM I) 27.0-27.9, adult Medical Established Patient with Karlajulius Floresen CLINICAL PHARMACY TECHNICIAN 07/23/2019 Last Documented On 0 2:33PM ; [facility] Occasional asthma CPS- Asthma Clinic- F/U with A french Clark CLINICAL PHARMACY TECHNICIAN 06/05/2019 Last Documented On 0 7:04PM ; [facility] Overweight CPS- [facility]- F/U with Aim julius Floresen CLINICAL PHARMACY TECHNICIAN 06/05/2019 Last Documented On 0 7:04PM ; [facility] Z68.27 - Body mass index (BM I) 27.0-27.9 adult CPS- [facility] Clinic- F/U with Karla Clark CLINICAL PHARMACY TECHNICIAN 06/05/2019 Last Documented On 0 7:04PM ; [facility] Occasional asthma CPS Med Review with Karla dinh CLINICAL PHARMACY TECHNICIAN 04/23/2019 Last Documented On 9 4:01PM ; [facility] Overweight CPS Med Review with Karla Clark [facility] 04/23/2019 Last Documented On 9 4:01PM ; [facility] Z68.27 - Body mass index (BM I) 27.0-27.9 adult CPS Med Review with Karla Clark [facility] 04/23/2019 Last Documented On 9 4:01PM ; [facility] Acute pharyngitis Medical Established Patient wi th Brandy eKlley [facility] 04/15/2019 Last Documented On 9 12:31PM ; [facility] Asthmatic bronchitis with ac [place] exacerbation Medical Established Patient with Brandy Warren [facility] 04/15/2019 Last Documented On 9 12:31PM ; [facility] Fagerstrom Score was two Medical Established Pat ient with Brandy Warren [facility] 04/15/2019 Last Documented On 9 12:31PM ; [facility] PHQ-9: total score was three 04/15/2019 Medical Established Patient with Brandy Warren CLINICAL PHARMACY TECHNICIAN 04/15/2019 Last Documented On 9 12:31PM ; [facility] Body mass index Medical Established Patient with Karla Clark CLINICAL PHARMACY TECHNICIAN 03/05/2019 Last Documented On 9 10:27AM ; [facility] Diabetes Risk Test Score was three score Medical Established Patient with Karla Clark CLINICAL PHARMACY TECHNICIAN 03/05/2019 Last Documented On 9 10:27AM ; [facility] Overweight Medical Established Patient with Karla Clark CLINICAL PHARMACY TECHNICIAN 03/05/2019 Last Documented On 9 10:27AM ; [facility] Z68.28 - Body mass index (BM I) 28.0-28.9, adult Medical Established Patient with Karla Amber CLINICAL PHARMACY TECHNICIAN 12/22/2018 Last Documented On 9 10:32AM ; [facility] Assess routine adult history and physical (18 - 64 yrs) Medical Established Patient with Karla Amber CLINICAL PHARMACY TECHNICIAN 11/06/2018 Last Documented On 9 2:26PM ; [facility] Overweight Medical Established Patient with Karla Amber CLINICAL PHARMACY TECHNICIAN 11/06/2018 Last Documented On 9 2:26PM ; [facility] Z68.28 - Body mass index (BM I) 28.0-28.9, adult Medical Established Patient with Karla Amber CLINICAL PHARMACY TECHNICIAN 11/06/2018 Last Documented On 9 2:26PM ; [facility] Assess dysphagia Medical Established Patient wit h Karla Amber CLINICAL PHARMACY TECHNICIAN 09/11/2018 Last Documented On 9 10:53AM ; [facility] Assess routine adult history and physical (18 - 64 yrs) Medical Established Patient with Karla Amber CLINICAL PHARMACY TECHNICIAN 09/11/2018 Last Documented On 9 10:53AM ; [facility] Assess primary insomnia with sleep apnea Medical Established Patient with Karla Amber CLINICAL PHARMACY TECHNICIAN 09/04/2018 Last Documented On 9 2:23PM ; [facility] Assess routine adult history and physical (18 - 64 yrs) Medical Established Patient with Karla Maber CLINICAL PHARMACY TECHNICIAN 09/04/2018 Last Documented On 9 2:23PM ; [facility] Overweight Medical Established Patient with Karla Amber CLINICAL PHARMACY TECHNICIAN 09/04/2018 Last Documented On 9 2:23PM ; [facility] Z68.29 - Body mass index (BM I) 29.0-29.9, adult Medical Established Patient with Karla Amber CLINICAL PHARMACY TECHNICIAN 09/04/2018 Last Documented On 9 2:23PM ; [facility] Assess vaginal candidiasis Medical Estab lished Patient with Karla Amber CLINICAL PHARMACY TECHNICIAN 07/31/2018 Last Documented On 9 2:12PM ; [facility] Work Phone: Evaluation note Includes: Assessments for all patient encounters Findings Encounter Date [M25.569 - Pain in unspecifi ed knee] arthralgia of knee / patella / tibia / fibula Medical Established Patient with Karla Clark CNP 08/27/2022 Last Documented On 3 8:56AM ; [facility] [Z68.24 - Body mass index [B NH] 24.0-24.9, adult] assessment of body mass index Medical Established Patient with Karla Clark CNP 08/27/2022 Last Documented On 3 8:56AM ; [facility] Intervention and counseling on cessation of tobacco use, 3-10 minutes Discussed medication and nicotine replacement for tobacco cessation Medical Established Patient with Karla Clark CNP 08/27/2022 Last Documented On 3 8:56AM ; [facility] Nicotine dependence Medical Established Patient with Karla Clark CNP 08/27/2022 Last Documented On 3 8:56AM ; [facility] Visit for routine adult H&P without abnormal findings Medical Established Patient with Karla Clark CNP 08/27/2022 Last Documented On 3 8:56AM ; [facility] [H92.02 - Otalgia, left ear] earache Med ical Established Patient with Karla Clark CLINICAL PHARMACY TECHNICIAN 06/18/2022 Last Documented On 3 12:11PM ; [facility] [M79.604 - Pain in right leg ] pain in right leg Medical Established Patient with Karla Clark CLINICAL PHARMACY TECHNICIAN 06/18/2022 Last Documented On 3 12:11PM ; [facility] [Z68.24 - Body mass index [B NH] 24.0-24.9, adult] assessment of body mass index Medical Established Patient with Karla Clark CLINICAL PHARMACY TECHNICIAN 06/18/2022 Last Documented On 3 12:11PM ; [facility] Assessment of tobacco use Medical Establ ished Patient with Karla Clark CLINICAL PHARMACY TECHNICIAN 06/18/2022 Last Documented On 3 12:11PM ; [facility] Diabetes Risk Test Score was four score 06/18/2022 Medical Established Patient with Karla Clark CLINICAL PHARMACY TECHNICIAN 06/18/2022 Last Documented On 3 12:11PM ; [facility] Schizoaffective disorder Established Patient with Yin Feliz [facility]CC-S 03/20/2022 Last Documented On 2 12:13AM ; [facility] No cough Medical Established Patient with Karla Amber CLINICAL PHARMACY TECHNICIAN 12/20/2021 Last Documented On 2 3:12PM ; [facility] Visit for: screening for hum an immunodeficiency virus Medical Established Patient with Karla Amber CLINICAL PHARMACY TECHNICIAN 12/20/2021 Last Documented On 2 3:12PM ; [facility] Z68.24 - Body mass index [BM I] 24.0-24.9, adult Medical Established Patient with Karla Amber CLINICAL PHARMACY TECHNICIAN 12/20/2021 Last Documented On 2 3:12PM ; [facility] Bipolar disorder NOS BH Established Patient with Yin Feliz LPCC-S 11/03/2021 Last Documented On 2 7:00PM ; [facility] Bipolar schizoaffective disorder BH Esta blished Patient with Yin Feliz LPCC-S 11/03/2021 Last Documented On 2 7:00PM ; [facility] PLAN Medical Established Patient with Don Pino MD 11/03/2021 Last Documented On 2 10:40AM ; [facility] Abnormal electrocardiogram Medical Estab lished Patient with Don Pino MD 11/03/2021 Last Documented On 2 10:40AM ; [facility] Z68.24 - Body mass index [BM I] 24.0-24.9, adult Medical Established Patient with Don Pino MD 11/03/2021 Last Documented On 2 10:40AM ; [facility] Cough Medical Established Patient with Karla Amber CLINICAL PHARMACY TECHNICIAN 07/28/2021 Last Documented On 2 2:01PM ; [facility] Intervention and counseling on cessation of tobacco use, 3-10 minutes Discussed medication and nicotine replacement for tobacco cessation Medical Established Patient with Karla Amber CLINICAL PHARMACY TECHNICIAN 07/28/2021 Last Documented On 2 2:01PM ; [facility] Nicotine dependence Medical Established Patient with Karla Amber CLINICAL PHARMACY TECHNICIAN 07/28/2021 Last Documented On 2 2:01PM ; [facility] Z68.24 - Body mass index [BM I] 24.0-24.9, adult Medical Established Patient with Karla Amber CLINICAL PHARMACY TECHNICIAN 07/28/2021 Last Documented On 2 2:01PM ; [facility] Assess Colon screening Medical Established Patie nt with Karla Amber CLINICAL PHARMACY TECHNICIAN 05/08/2021 Last Documented On 1 10:59AM ; [facility] Diabetes Risk Test Score was four score 05/08/2021 Medical Established Patient with Karla Amber CLINICAL PHARMACY TECHNICIAN 05/08/2021 Last Documented On 1 10:59AM ; [facility] Routine adult history and ph ysical (18-64 yrs) without abnormal findings Medical Established Patient with Karla Amber CLINICAL PHARMACY TECHNICIAN 05/08/2021 Last Documented On 1 10:59AM ; [facility] Z68.24 - Body mass index [BM I] 24.0-24.9, adult Medical Established Patient with Karla Amber CLINICAL PHARMACY TECHNICIAN 05/08/2021 Last Documented On 1 10:59AM ; [facility] Z68.24 - Body mass index [BM I] 24.0-24.9, adult Medical Established Patient with Karla Amber CLINICAL PHARMACY TECHNICIAN 06/17/2020 Last Documented On 1 10:30AM ; [facility] Overweight Medical Established Patient with Karla Amber CLINICAL PHARMACY TECHNICIAN 06/06/2020 Last Documented On 1 2:06PM ; [facility] Z68.25 - Body mass index [BM I] 25.0-25.9, adult Medical Established Patient with Karla Amber CLINICAL PHARMACY TECHNICIAN 06/06/2020 Last Documented On 1 2:06PM ; [facility] Antiasthmatics [facility] Asthma Clinic-New with Karlajulius Floresen CLINICAL PHARMACY TECHNICIAN 05/06/2020 Last Documented On 0 7:27PM ; [facility] Assessment of tobacco use [facility] Asthma Clinic-New with Karla Amber CLINICAL PHARMACY TECHNICIAN 05/06/2020 Last Documented On 0 7:27PM ; [facility] Body mass index [facility] Asthma Clinic-New with Karla Amber CLINICAL PHARMACY TECHNICIAN 05/06/2020 Last Documented On 0 7:27PM ; [facility] Chronic obstructive pulmonary disease CP S [facility]-New with Karla Amber CLINICAL PHARMACY TECHNICIAN 05/06/2020 Last Documented On 0 7:27PM ; [facility] Overweight CPS [facility]-New with Karla Floresen CLINICAL PHARMACY TECHNICIAN 05/06/2020 Last Documented On 0 7:27PM ; [facility] Z11.4 - Encounter for screen ing for human immunodeficiency virus [HIV] CPS [facility]-New with Karlajulius Floresen CLINICAL PHARMACY TECHNICIAN 05/06/2020 Last Documented On 0 7:27PM ; [facility] Diabetes Risk Test Score was three score 03/31/2020 Medical Established Patient with Karlajulius Floresen CLINICAL PHARMACY TECHNICIAN 03/31/2020 Last Documented On 0 3:22PM ; [facility] Overweight Medical Established Patient with Karlajulius Floresen CLINICAL PHARMACY TECHNICIAN 03/31/2020 Last Documented On 0 3:22PM ; [facility] Z68.25 - Body mass index [BM I] 25.0-25.9, adult Medical Established Patient with Karla Floresen CLINICAL PHARMACY TECHNICIAN 03/31/2020 Last Documented On 0 3:22PM ; [facility] Encounter for Immunization Nurse Visit with Gary Clark CLINICAL PHARMACY TECHNICIAN 03/14/2020 Last Documented On 0 5:11PM ; [facility] Body mass index Medical Established Patient with Karla Floresen CLINICAL PHARMACY TECHNICIAN 02/26/2020 Last Documented On 0 1:18PM ; [facility] Overweight Medical Established Patient with Karla Amber CLINICAL PHARMACY TECHNICIAN 02/26/2020 Last Documented On 0 1:18PM ; [facility] Overweight Medical Established Patient with Karlajulius Floresen CLINICAL PHARMACY TECHNICIAN 07/23/2019 Last Documented On 0 2:33PM ; [facility] Z68.27 - Body mass index (BM I) 27.0-27.9, adult Medical Established Patient with Karlajulius Floresen CLINICAL PHARMACY TECHNICIAN 07/23/2019 Last Documented On 0 2:33PM ; [facility] Occasional asthma CPS- Asthma Clinic- F/U with A french Clark CLINICAL PHARMACY TECHNICIAN 06/05/2019 Last Documented On 0 7:04PM ; [facility] Overweight CPS- [facility] Clinic- F/U with Aim julius Clark CLINICAL PHARMACY TECHNICIAN 06/05/2019 Last Documented On 0 7:04PM ; [facility] Z68.27 - Body mass index (BM I) 27.0-27.9 adult CPS- [facility] Clinic- F/U with Karla Clark CLINICAL PHARMACY TECHNICIAN 06/05/2019 Last Documented On 0 7:04PM ; [facility] Occasional asthma CPS Med Review with Karla dinh CLINICAL PHARMACY TECHNICIAN 04/23/2019 Last Documented On 9 4:01PM ; [facility] Overweight CPS Med Review with Karla Clark CLINICAL PHARMACY TECHNICIAN 04/23/2019 Last Documented On 9 4:01PM ; [facility] Z68.27 - Body mass index (BM I) 27.0-27.9 adult CPS Med Review with Karla Floresen CLINICAL PHARMACY TECHNICIAN 04/23/2019 Last Documented On 9 4:01PM ; [facility] Acute pharyngitis Medical Established Patient wi th Brandy Serarnoer CLINICAL PHARMACY TECHNICIAN 04/15/2019 Last Documented On 9 12:31PM ; [facility] Asthmatic bronchitis with ac [place] exacerbation Medical Established Patient with Brandy Warren CLINICAL PHARMACY TECHNICIAN 04/15/2019 Last Documented On 9 12:31PM ; [facility] Fagerstrom Score was two Medical Established Pat ient with Brandy Warren CLINICAL PHARMACY TECHNICIAN 04/15/2019 Last Documented On 9 12:31PM ; [facility] PHQ-9: total score was three 04/15/2019 Medical Established Patient with Brandy Warren CLINICAL PHARMACY TECHNICIAN 04/15/2019 Last Documented On 9 12:31PM ; [facility] Body mass index Medical Established Patient with Karlajulius Floresen CLINICAL PHARMACY TECHNICIAN 03/05/2019 Last Documented On 9 10:27AM ; [facility] Diabetes Risk Test Score was three score Medical Established Patient with Karla Amber CLINICAL PHARMACY TECHNICIAN 03/05/2019 Last Documented On 9 10:27AM ; [facility] Overweight Medical Established Patient with Karla Amber CLINICAL PHARMACY TECHNICIAN 03/05/2019 Last Documented On 9 10:27AM ; [facility] Z68.28 - Body mass index (BM I) 28.0-28.9, adult Medical Established Patient with Karla Amber CLINICAL PHARMACY TECHNICIAN 12/22/2018 Last Documented On 9 10:32AM ; [facility] Assess routine adult history and physical (18 - 64 yrs) Medical Established Patient with Karla Amber CLINICAL PHARMACY TECHNICIAN 11/06/2018 Last Documented On 9 2:26PM ; [facility] Overweight Medical Established Patient with Karla Amber CLINICAL PHARMACY TECHNICIAN 11/06/2018 Last Documented On 9 2:26PM ; [facility] Z68.28 - Body mass index (BM I) 28.0-28.9, adult Medical Established Patient with Karla Amber CLINICAL PHARMACY TECHNICIAN 11/06/2018 Last Documented On 9 2:26PM ; [facility] Assess dysphagia Medical Established Patient wit h Karla Amber CLINICAL PHARMACY TECHNICIAN 09/11/2018 Last Documented On 9 10:53AM ; [facility] Assess routine adult history and physical (18 - 64 yrs) Medical Established Patient with Karla Amber CLINICAL PHARMACY TECHNICIAN 09/11/2018 Last Documented On 9 10:53AM ; [facility] Assess primary insomnia with sleep apnea Medical Established Patient with Karla Amber CLINICAL PHARMACY TECHNICIAN 09/04/2018 Last Documented On 9 2:23PM ; [facility] Assess routine adult history and physical (18 - 64 yrs) Medical Established Patient with Karla Amber CLINICAL PHARMACY TECHNICIAN 09/04/2018 Last Documented On 9 2:23PM ; [facility] Overweight Medical Established Patient with Karla Amber CLINICAL PHARMACY TECHNICIAN 09/04/2018 Last Documented On 9 2:23PM ; [facility] Z68.29 - Body mass index (BM I) 29.0-29.9, adult Medical Established Patient with Karla Amber CLINICAL PHARMACY TECHNICIAN 09/04/2018 Last Documented On 9 2:23PM ; [facility] Assess vaginal candidiasis Medical Estab lished Patient with Karla Amber CLINICAL PHARMACY TECHNICIAN 07/31/2018 Last Documented On 9 2:12PM ; [facility] Work Phone: Evaluation note Includes: Assessments for all patient encounters Findings Encounter Date [M25.569 - Pain in unspecifi ed knee] arthralgia of knee / patella / tibia / fibula Medical Established Patient with Karla Clark CNP 08/27/2022 Last Documented On 3 9:20AM ; [facility] [Z68.24 - Body mass index [B NH] 24.0-24.9, adult] assessment of body mass index Medical Established Patient with Karla Clark CNP 08/27/2022 Last Documented On 3 9:20AM ; [facility] Intervention and counseling on cessation of tobacco use, 3-10 minutes Discussed medication and nicotine replacement for tobacco cessation Medical Established Patient with Karla Clark CNP 08/27/2022 Last Documented On 3 9:20AM ; [facility] Nicotine dependence Medical Established Patient with Karla Clark CNP 08/27/2022 Last Documented On 3 9:20AM ; [facility] Visit for routine adult H&P without abnormal findings Medical Established Patient with Karla Clark CNP 08/27/2022 Last Documented On 3 9:20AM ; [facility] [H92.02 - Otalgia, left ear] earache Med ical Established Patient with Karla Clark CNP 06/18/2022 Last Documented On 3 12:11PM ; [facility] [M79.604 - Pain in right leg ] pain in right leg Medical Established Patient with Karla Clark CLINICAL PHARMACY TECHNICIAN 06/18/2022 Last Documented On 3 12:11PM ; [facility] [Z68.24 - Body mass index [B NH] 24.0-24.9, adult] assessment of body mass index Medical Established Patient with Karla Clark CLINICAL PHARMACY TECHNICIAN 06/18/2022 Last Documented On 3 12:11PM ; [facility] Assessment of tobacco use Medical Establ ished Patient with Karla Clark CLINICAL PHARMACY TECHNICIAN 06/18/2022 Last Documented On 3 12:11PM ; [facility] Diabetes Risk Test Score was four score 06/18/2022 Medical Established Patient with Karlajulius Floresen CLINICAL PHARMACY TECHNICIAN 06/18/2022 Last Documented On 3 12:11PM ; [facility] Schizoaffective disorder Established Patient with Yin Feliz LPCC-S 03/20/2022 Last Documented On 2 12:13AM ; [facility] No cough Medical Established Patient with Karla Amber CLINICAL PHARMACY TECHNICIAN 12/20/2021 Last Documented On 2 3:12PM ; [facility] Visit for: screening for hum an immunodeficiency virus Medical Established Patient with Karla Amber CLINICAL PHARMACY TECHNICIAN 12/20/2021 Last Documented On 2 3:12PM ; [facility] Z68.24 - Body mass index [BM I] 24.0-24.9, adult Medical Established Patient with Karlajulius Floresen CLINICAL PHARMACY TECHNICIAN 12/20/2021 Last Documented On 2 3:12PM ; [facility] Bipolar disorder NOS Established Patient with Yin Feliz LPCC-S 11/03/2021 Last Documented On 2 7:00PM ; [facility] Bipolar schizoaffective disorder BH Esta blished Patient with Yin Feliz LPCC-S 11/03/2021 Last Documented On 2 7:00PM ; [facility] PLAN Medical Established Patient with Don Pino MD 11/03/2021 Last Documented On 2 10:40AM ; [facility] Abnormal electrocardiogram Medical Estab lished Patient with Don Pino MD 11/03/2021 Last Documented On 2 10:40AM ; [facility] Z68.24 - Body mass index [BM I] 24.0-24.9, adult Medical Established Patient with Don Pino MD 11/03/2021 Last Documented On 2 10:40AM ; [facility] Cough Medical Established Patient with Karlajulius Clark CLINICAL PHARMACY TECHNICIAN 07/28/2021 Last Documented On 2 2:01PM ; [facility] Intervention and counseling on cessation of tobacco use, 3-10 minutes Discussed medication and nicotine replacement for tobacco cessation Medical Established Patient with Karla Amber CLINICAL PHARMACY TECHNICIAN 07/28/2021 Last Documented On 2 2:01PM ; [facility] Nicotine dependence Medical Established Patient with Karla Amber CLINICAL PHARMACY TECHNICIAN 07/28/2021 Last Documented On 2 2:01PM ; [facility] Z68.24 - Body mass index [BM I] 24.0-24.9, adult Medical Established Patient with Karla Amber CLINICAL PHARMACY TECHNICIAN 07/28/2021 Last Documented On 2 2:01PM ; [facility] Assess Colon screening Medical Established Patie nt with Karla Amber CLINICAL PHARMACY TECHNICIAN 05/08/2021 Last Documented On 1 10:59AM ; [facility] Diabetes Risk Test Score was four score 05/08/2021 Medical Established Patient with Karla Amber CLINICAL PHARMACY TECHNICIAN 05/08/2021 Last Documented On 1 10:59AM ; [facility] Routine adult history and ph ysical (18-64 yrs) without abnormal findings Medical Established Patient with Karla Amber CLINICAL PHARMACY TECHNICIAN 05/08/2021 Last Documented On 1 10:59AM ; [facility] Z68.24 - Body mass index [BM I] 24.0-24.9, adult Medical Established Patient with Karla Amber CLINICAL PHARMACY TECHNICIAN 05/08/2021 Last Documented On 1 10:59AM ; [facility] Z68.24 - Body mass index [BM I] 24.0-24.9, adult Medical Established Patient with Karla Amber CLINICAL PHARMACY TECHNICIAN 06/17/2020 Last Documented On 1 10:30AM ; [facility] Overweight Medical Established Patient with Karla Amber CLINICAL PHARMACY TECHNICIAN 06/06/2020 Last Documented On 1 2:06PM ; [facility] Z68.25 - Body mass index [BM I] 25.0-25.9, adult Medical Established Patient with Karla Amber CLINICAL PHARMACY TECHNICIAN 06/06/2020 Last Documented On 1 2:06PM ; [facility] Antiasthmatics [facility] Asthma Clinic-New with Karla Clark CLINICAL PHARMACY TECHNICIAN 05/06/2020 Last Documented On 0 7:27PM ; [facility] Assessment of tobacco use [facility] Clinic-New with Karla Amber CLINICAL PHARMACY TECHNICIAN 05/06/2020 Last Documented On 0 7:27PM ; [facility] Body mass index CPS [facility] Clinic-New with Karla Amber CLINICAL PHARMACY TECHNICIAN 05/06/2020 Last Documented On 0 7:27PM ; [facility] Chronic obstructive pulmonary disease CP S [facility]-New with Karla Amber CLINICAL PHARMACY TECHNICIAN 05/06/2020 Last Documented On 0 7:27PM ; [facility] Overweight CPS [facility]-New with Karla Amber CLINICAL PHARMACY TECHNICIAN 05/06/2020 Last Documented On 0 7:27PM ; [facility] Z11.4 - Encounter for screen ing for human immunodeficiency virus [HIV] CPS [facility]-New with Karla Amber CLINICAL PHARMACY TECHNICIAN 05/06/2020 Last Documented On 0 7:27PM ; [facility] Diabetes Risk Test Score was three score 03/31/2020 Medical Established Patient with Karla Amber CLINICAL PHARMACY TECHNICIAN 03/31/2020 Last Documented On 0 3:22PM ; [facility] Overweight Medical Established Patient with Karla Amber CLINICAL PHARMACY TECHNICIAN 03/31/2020 Last Documented On 0 3:22PM ; [facility] Z68.25 - Body mass index [BM I] 25.0-25.9, adult Medical Established Patient with Karla Amber CLINICAL PHARMACY TECHNICIAN 03/31/2020 Last Documented On 0 3:22PM ; [facility] Encounter for Immunization Nurse Visit with Gary Clark CLINICAL PHARMACY TECHNICIAN 03/14/2020 Last Documented On 0 5:11PM ; [facility] Body mass index Medical Established Patient with Karla Amber CLINICAL PHARMACY TECHNICIAN 02/26/2020 Last Documented On 0 1:18PM ; [facility] Overweight Medical Established Patient with Karla Amber CLINICAL PHARMACY TECHNICIAN 02/26/2020 Last Documented On 0 1:18PM ; [facility] Overweight Medical Established Patient with Karla Amber CLINICAL PHARMACY TECHNICIAN 07/23/2019 Last Documented On 0 2:33PM ; [facility] Z68.27 - Body mass index (BM I) 27.0-27.9, adult Medical Established Patient with Karla Amber CLINICAL PHARMACY TECHNICIAN 07/23/2019 Last Documented On 0 2:33PM ; [facility] Occasional asthma CPS- Asthma Clinic- F/U with A french Clark CLINICAL PHARMACY TECHNICIAN 06/05/2019 Last Documented On 0 7:04PM ; [facility] Overweight CPS- [facility]- F/U with Aim julius Clark CLINICAL PHARMACY TECHNICIAN 06/05/2019 Last Documented On 0 7:04PM ; [facility] Z68.27 - Body mass index (BM I) 27.0-27.9 adult CPS- [facility] Clinic- F/U with Karla Clark CLINICAL PHARMACY TECHNICIAN 06/05/2019 Last Documented On 0 7:04PM ; [facility] Occasional asthma CPS Med Review with Karla Sandra dinh CLINICAL PHARMACY TECHNICIAN 04/23/2019 Last Documented On 9 4:01PM ; [facility] Overweight CPS Med Review with Karla Amber CLINICAL PHARMACY TECHNICIAN 04/23/2019 Last Documented On 9 4:01PM ; [facility] Z68.27 - Body mass index (BM I) 27.0-27.9 adult CPS Med Review with Karla Floresen CLINICAL PHARMACY TECHNICIAN 04/23/2019 Last Documented On 9 4:01PM ; [facility] Acute pharyngitis Medical Established Patient wi th Brandy Warren CLINICAL PHARMACY TECHNICIAN 04/15/2019 Last Documented On 9 12:31PM ; [facility] Asthmatic bronchitis with ac [place] exacerbation Medical Established Patient with Brandy Warren CLINICAL PHARMACY TECHNICIAN 04/15/2019 Last Documented On 9 12:31PM ; [facility] Fagerstrom Score was two Medical Established Pat ient with Brandy Warren CLINICAL PHARMACY TECHNICIAN 04/15/2019 Last Documented On 9 12:31PM ; [facility] PHQ-9: total score was three 04/15/2019 Medical Established Patient with Brandy Warren CLINICAL PHARMACY TECHNICIAN 04/15/2019 Last Documented On 9 12:31PM ; [facility] Body mass index Medical Established Patient with Karla Clark CLINICAL PHARMACY TECHNICIAN 03/05/2019 Last Documented On 9 10:27AM ; [facility] Diabetes Risk Test Score was three score Medical Established Patient with Karla Amber CLINICAL PHARMACY TECHNICIAN 03/05/2019 Last Documented On 9 10:27AM ; [facility] Overweight Medical Established Patient with Karla Amber CLINICAL PHARMACY TECHNICIAN 03/05/2019 Last Documented On 9 10:27AM ; [facility] Z68.28 - Body mass index (BM I) 28.0-28.9, adult Medical Established Patient with Karla Amber CLINICAL PHARMACY TECHNICIAN 12/22/2018 Last Documented On 9 10:32AM ; [facility] Assess routine adult history and physical (18 - 64 yrs) Medical Established Patient with Karla Amber CLINICAL PHARMACY TECHNICIAN 11/06/2018 Last Documented On 9 2:26PM ; [facility] Overweight Medical Established Patient with Karla Amber CLINICAL PHARMACY TECHNICIAN 11/06/2018 Last Documented On 9 2:26PM ; [facility] Z68.28 - Body mass index (BM I) 28.0-28.9, adult Medical Established Patient with Karla Amber CLINICAL PHARMACY TECHNICIAN 11/06/2018 Last Documented On 9 2:26PM ; [facility] Assess dysphagia Medical Established Patient wit h Karla Amber CLINICAL PHARMACY TECHNICIAN 09/11/2018 Last Documented On 9 10:53AM ; [facility] Assess routine adult history and physical (18 - 64 yrs) Medical Established Patient with Karla Amber CLINICAL PHARMACY TECHNICIAN 09/11/2018 Last Documented On 9 10:53AM ; [facility] Assess primary insomnia with sleep apnea Medical Established Patient with Karla Amber CLINICAL PHARMACY TECHNICIAN 09/04/2018 Last Documented On 9 2:23PM ; [facility] Assess routine adult history and physical (18 - 64 yrs) Medical Established Patient with Karla Amber CLINICAL PHARMACY TECHNICIAN 09/04/2018 Last Documented On 9 2:23PM ; [facility] Overweight Medical Established Patient with Karla Amber CLINICAL PHARMACY TECHNICIAN 09/04/2018 Last Documented On 9 2:23PM ; [facility] Z68.29 - Body mass index (BM I) 29.0-29.9, adult Medical Established Patient with Karla Amber CLINICAL PHARMACY TECHNICIAN 09/04/2018 Last Documented On 9 2:23PM ; [facility] Assess vaginal candidiasis Medical Estab lished Patient with Karla Clark CLINICAL PHARMACY TECHNICIAN 07/31/2018 Last Documented On 9 2:12PM ; [facility] Work Phone: Evaluation noteNo assessment information available [facility] Work Phone: Evaluation [facility]No [facility] [employer] Other Evaluation note Includes: Assessments for all patient encounters Findings Encounter Date [J20.9 - Acute bronchitis, unspecified] acute bronchitis Medical Established Patient with Karla Clark CLINICAL PHARMACY TECHNICIAN 11/19/2022 Last Documented On 3 10:15AM ; [facility] [M79.621 - Pain in right upp er arm] pain in upper arm Medical Established Patient with Karla Clark CLINICAL PHARMACY TECHNICIAN 11/19/2022 Last Documented On 3 10:15AM ; [facility] [Z68.23 - Body mass index [B NH] 23.0-23.9, adult] assessment of body mass index Medical Established Patient with Karla Clark CLINICAL PHARMACY TECHNICIAN 11/19/2022 Last Documented On 3 10:15AM ; [facility] [M79.601 - Pain in right arm ] pain in right arm Medical Established Patient with Karlajulius Clark CLINICAL PHARMACY TECHNICIAN 09/18/2022 Last Documented On 3 2:33PM ; [facility] [Z68.24 - Body mass index [B NH] 24.0-24.9, adult] assessment of body mass index Medical Established Patient with Karla Clark CLINICAL PHARMACY TECHNICIAN 09/18/2022 Last Documented On 3 2:33PM ; [facility] Assessment of tobacco use Medical Establ ished Patient with Karla Amber CLINICAL PHARMACY TECHNICIAN 09/18/2022 Last Documented On 3 2:33PM ; [facility] [M25.569 - Pain in unspecifi ed knee] arthralgia of knee / patella / tibia / fibula Medical Established Patient with Karlajulius Clark CLINICAL PHARMACY TECHNICIAN 08/27/2022 Last Documented On 3 9:20AM ; [facility] [Z68.24 - Body mass index [B NH] 24.0-24.9, adult] assessment of body mass index Medical Established Patient with Karla Clark CLINICAL PHARMACY TECHNICIAN 08/27/2022 Last Documented On 3 9:20AM ; [facility] Intervention and counseling on cessation of tobacco use, 3-10 minutes Discussed medication and nicotine replacement for tobacco cessation Medical Established Patient with Karla Clark CLINICAL PHARMACY TECHNICIAN 08/27/2022 Last Documented On 3 9:20AM ; [facility] Nicotine dependence Medical Established Patient with Karlajulius Clark CLINICAL PHARMACY TECHNICIAN 08/27/2022 Last Documented On 3 9:20AM ; [facility] Visit for routine adult H&P without abnormal findings Medical Established Patient with Karla Clark CLINICAL PHARMACY TECHNICIAN 08/27/2022 Last Documented On 3 9:20AM ; [facility] [H92.02 - Otalgia, left ear] earache Med ical Established Patient with Karla Clark CLINICAL PHARMACY TECHNICIAN 06/18/2022 Last Documented On 3 12:11PM ; [facility] [M79.604 - Pain in right leg ] pain in right leg Medical Established Patient with Karla Clark CLINICAL PHARMACY TECHNICIAN 06/18/2022 Last Documented On 3 12:11PM ; [facility] [Z68.24 - Body mass index [B NH] 24.0-24.9, adult] assessment of body mass index Medical Established Patient with Krala Clark CLINICAL PHARMACY TECHNICIAN 06/18/2022 Last Documented On 3 12:11PM ; [facility] Assessment of tobacco use Medical Establ ished Patient with Karla Clark CLINICAL PHARMACY TECHNICIAN 06/18/2022 Last Documented On 3 12:11PM ; [facility] Diabetes Risk Test Score was four score 06/18/2022 Medical Established Patient with Karla Clark CLINICAL PHARMACY TECHNICIAN 06/18/2022 Last Documented On 3 12:11PM ; [facility] Schizoaffective disorder BH Established Patient with Yin Feliz LPCC-S 03/20/2022 Last Documented On 2 12:13AM ; [facility] No cough Medical Established Patient with Karla Clark CLINICAL PHARMACY TECHNICIAN 12/20/2021 Last Documented On 2 3:12PM ; [facility] Visit for: screening for hum an immunodeficiency virus Medical Established Patient with Karla Clark CLINICAL PHARMACY TECHNICIAN 12/20/2021 Last Documented On 2 3:12PM ; [facility] Z68.24 - Body mass index [BM I] 24.0-24.9, adult Medical Established Patient with Karla Clark CLINICAL PHARMACY TECHNICIAN 12/20/2021 Last Documented On 2 3:12PM ; [facility] Bipolar disorder NOS BH Established Patient with Yin Feliz LPCC-S 11/03/2021 Last Documented On 2 7:00PM ; [facility] Bipolar schizoaffective disorder BH Esta blished Patient with Yin Feliz LPCC-S 11/03/2021 Last Documented On 2 7:00PM ; [facility] PLAN Medical Established Patient with Don Pino MD 11/03/2021 Last Documented On 2 10:40AM ; [facility] Abnormal electrocardiogram Medical Estab lished Patient with Don Pino MD 11/03/2021 Last Documented On 2 10:40AM ; [facility] Z68.24 - Body mass index [BM I] 24.0-24.9, adult Medical Established Patient with Don Pino MD 11/03/2021 Last Documented On 2 10:40AM ; [facility] Cough Medical Established Patient with Karla Clark CLINICAL PHARMACY TECHNICIAN 07/28/2021 Last Documented On 2 2:01PM ; [facility] Intervention and counseling on cessation of tobacco use, 3-10 minutes Discussed medication and nicotine replacement for tobacco cessation Medical Established Patient with Karla Clark CLINICAL PHARMACY TECHNICIAN 07/28/2021 Last Documented On 2 2:01PM ; [facility] Nicotine dependence Medical Established Patient with Karla Amber CLINICAL PHARMACY TECHNICIAN 07/28/2021 Last Documented On 2 2:01PM ; [facility] Z68.24 - Body mass index [BM I] 24.0-24.9, adult Medical Established Patient with Karlajulius Clark CLINICAL PHARMACY TECHNICIAN 07/28/2021 Last Documented On 2 2:01PM ; [facility] Assess Colon screening Medical Established Patie nt with Karla Amber CLINICAL PHARMACY TECHNICIAN 05/08/2021 Last Documented On 1 10:59AM ; [facility] Diabetes Risk Test Score was four score 05/08/2021 Medical Established Patient with Karla Amber CLINICAL PHARMACY TECHNICIAN 05/08/2021 Last Documented On 1 10:59AM ; [facility] Routine adult history and ph ysical (18-64 yrs) without abnormal findings Medical Established Patient with Karla Amber CLINICAL PHARMACY TECHNICIAN 05/08/2021 Last Documented On 1 10:59AM ; [facility] Z68.24 - Body mass index [BM I] 24.0-24.9, adult Medical Established Patient with Karla Amber CLINICAL PHARMACY TECHNICIAN 05/08/2021 Last Documented On 1 10:59AM ; [facility] Z68.24 - Body mass index [BM I] 24.0-24.9, adult Medical Established Patient with Karla Amber CLINICAL PHARMACY TECHNICIAN 06/17/2020 Last Documented On 1 10:30AM ; [facility] Overweight Medical Established Patient with Karla Amber CLINICAL PHARMACY TECHNICIAN 06/06/2020 Last Documented On 1 2:06PM ; [facility] Z68.25 - Body mass index [BM I] 25.0-25.9, adult Medical Established Patient with Karla Amber CLINICAL PHARMACY TECHNICIAN 06/06/2020 Last Documented On 1 2:06PM ; [facility] Antiasthmatics [facility] Asthma Clinic-New with Karla Amber CLINICAL PHARMACY TECHNICIAN 05/06/2020 Last Documented On 0 7:27PM ; [facility] Assessment of tobacco use [facility] Asthma Clinic-New with Karla Amber CLINICAL PHARMACY TECHNICIAN 05/06/2020 Last Documented On 0 7:27PM ; [facility] Body mass index [facility] Asthma Clinic-New with Karla Amber CLINICAL PHARMACY TECHNICIAN 05/06/2020 Last Documented On 0 7:27PM ; [facility] Chronic obstructive pulmonary disease CP S [facility]-New with Karla Amber CLINICAL PHARMACY TECHNICIAN 05/06/2020 Last Documented On 0 7:27PM ; [facility] Overweight CPS [facility]-New with Karla Clark CLINICAL PHARMACY TECHNICIAN 05/06/2020 Last Documented On 0 7:27PM ; [facility] Z11.4 - Encounter for screen ing for human immunodeficiency virus [HIV] CPS [facility]-New with Karla Clark CLINICAL PHARMACY TECHNICIAN 05/06/2020 Last Documented On 0 7:27PM ; [facility] Diabetes Risk Test Score was three score 03/31/2020 Medical Established Patient with Karla Floresen CLINICAL PHARMACY TECHNICIAN 03/31/2020 Last Documented On 0 3:22PM ; [facility] Overweight Medical Established Patient with Karla Floresen CLINICAL PHARMACY TECHNICIAN 03/31/2020 Last Documented On 0 3:22PM ; [facility] Z68.25 - Body mass index [BM I] 25.0-25.9, adult Medical Established Patient with Karla Clark CLINICAL PHARMACY TECHNICIAN 03/31/2020 Last Documented On 0 3:22PM ; [facility] Encounter for Immunization Nurse Visit with Gary Clark CLINICAL PHARMACY TECHNICIAN 03/14/2020 Last Documented On 0 5:11PM ; [facility] Body mass index Medical Established Patient with Karla Floresen CLINICAL PHARMACY TECHNICIAN 02/26/2020 Last Documented On 0 1:18PM ; [facility] Overweight Medical Established Patient with Karla Floresen CLINICAL PHARMACY TECHNICIAN 02/26/2020 Last Documented On 0 1:18PM ; [facility] Overweight Medical Established Patient with Karla Clark CLINICAL PHARMACY TECHNICIAN 07/23/2019 Last Documented On 0 2:33PM ; [facility] Z68.27 - Body mass index (BM I) 27.0-27.9, adult Medical Established Patient with Karla Floresen CLINICAL PHARMACY TECHNICIAN 07/23/2019 Last Documented On 0 2:33PM ; [facility] Occasional asthma CPS- [facility] Clinic- F/U with A french Clark CLINICAL PHARMACY TECHNICIAN 06/05/2019 Last Documented On 0 7:04PM ; [facility] Overweight CPS- [facility] Clinic- F/U with Alta Clark CLINICAL PHARMACY TECHNICIAN 06/05/2019 Last Documented On 0 7:04PM ; [facility] Z68.27 - Body mass index (BM I) 27.0-27.9 adult CPS- [facility] Clinic- F/U with Karla Clark CLINICAL PHARMACY TECHNICIAN 06/05/2019 Last Documented On 0 7:04PM ; [facility] Occasional asthma CPS Med Review with Karlajulius dinh CLINICAL PHARMACY TECHNICIAN 04/23/2019 Last Documented On 9 4:01PM ; [facility] Overweight CPS Med Review with Karla Clark CLINICAL PHARMACY TECHNICIAN 04/23/2019 Last Documented On 9 4:01PM ; [facility] Z68.27 - Body mass index (BM I) 27.0-27.9 adult CPS Med Review with Karla Clark CLINICAL PHARMACY TECHNICIAN 04/23/2019 Last Documented On 9 4:01PM ; [facility] Acute pharyngitis Medical Established Patient wi th Brandy Kelley CLINICAL PHARMACY TECHNICIAN 04/15/2019 Last Documented On 9 12:31PM ; [facility] Asthmatic bronchitis with ac [place] exacerbation Medical Established Patient with Brandy Warren CLINICAL PHARMACY TECHNICIAN 04/15/2019 Last Documented On 9 12:31PM ; [facility] Fagerstrom Score was two Medical Established Pat ient with Brandy Warren CLINICAL PHARMACY TECHNICIAN 04/15/2019 Last Documented On 9 12:31PM ; [facility] PHQ-9: total score was three 04/15/2019 Medical Established Patient with Brandy Warren CLINICAL PHARMACY TECHNICIAN 04/15/2019 Last Documented On 9 12:31PM ; [facility] Body mass index Medical Established Patient with Karla Clark CLINICAL PHARMACY TECHNICIAN 03/05/2019 Last Documented On 9 10:27AM ; [facility] Diabetes Risk Test Score was three score Medical Established Patient with Karla Amber CLINICAL PHARMACY TECHNICIAN 03/05/2019 Last Documented On 9 10:27AM ; [facility] Overweight Medical Established Patient with Karla Amber CLINICAL PHARMACY TECHNICIAN 03/05/2019 Last Documented On 9 10:27AM ; [facility] Z68.28 - Body mass index (BM I) 28.0-28.9, adult Medical Established Patient with Karla Clark CLINICAL PHARMACY TECHNICIAN 12/22/2018 Last Documented On 9 10:32AM ; [facility] Assess routine adult history and physical (18 - 64 yrs) Medical Established Patient with Karla Amber CLINICAL PHARMACY TECHNICIAN 11/06/2018 Last Documented On 9 2:26PM ; [facility] Overweight Medical Established Patient with Karla Amber CLINICAL PHARMACY TECHNICIAN 11/06/2018 Last Documented On 9 2:26PM ; [facility] Z68.28 - Body mass index (BM I) 28.0-28.9, adult Medical Established Patient with Karla Amber CLINICAL PHARMACY TECHNICIAN 11/06/2018 Last Documented On 9 2:26PM ; [facility] Assess dysphagia Medical Established Patient wit h Karla Amber CLINICAL PHARMACY TECHNICIAN 09/11/2018 Last Documented On 9 10:53AM ; [facility] Assess routine adult history and physical (18 - 64 yrs) Medical Established Patient with Karla Amber CLINICAL PHARMACY TECHNICIAN 09/11/2018 Last Documented On 9 10:53AM ; [facility] Assess primary insomnia with sleep apnea Medical Established Patient with Karla Amber CLINICAL PHARMACY TECHNICIAN 09/04/2018 Last Documented On 9 2:23PM ; [facility] Assess routine adult history and physical (18 - 64 yrs) Medical Established Patient with Karla Amber CLINICAL PHARMACY TECHNICIAN 09/04/2018 Last Documented On 9 2:23PM ; [facility] Overweight Medical Established Patient with Karla Amber CLINICAL PHARMACY TECHNICIAN 09/04/2018 Last Documented On 9 2:23PM ; [facility] Z68.29 - Body mass index (BM I) 29.0-29.9, adult Medical Established Patient with Karla Amber CLINICAL PHARMACY TECHNICIAN 09/04/2018 Last Documented On 9 2:23PM ; [facility] Assess vaginal candidiasis Medical Estab lished Patient with Karla Amber CLINICAL PHARMACY TECHNICIAN 07/31/2018 Last Documented On 9 2:12PM ; [facility] Work Phone: Evaluation note Includes: Assessments for all patient encounters Findings Encounter Date [Z12.39 - Encounter for othe r screening for malignant neoplasm of breast] visit for: screening for malignant breast neoplasm Medical Established Patient with Aaron Whitaker CLINICAL PHARMACY TECHNICIAN 02/28/2023 Last Documented On 3 9:51AM ; [facility] [Z68.24 - Body mass index [B NH] 24.0-24.9, adult] assessment of body mass index Medical Established Patient with Aaron Whitaker CLINICAL PHARMACY TECHNICIAN 02/28/2023 Last Documented On 3 9:51AM ; [facility] Assessment of tobacco use Medical Establ ished Patient with Aaron Whitaker CLINICAL PHARMACY TECHNICIAN 02/28/2023 Last Documented On 3 9:51AM ; [facility] Chronic obstructive pulmonary disease Me dical Established Patient with Aaron Whitaker CLINICAL PHARMACY TECHNICIAN 02/28/2023 Last Documented On 3 9:51AM ; [facility] [J20.9 - Acute bronchitis, unspecified] acute bronchitis Medical Established Patient with Karla Clark CLINICAL PHARMACY TECHNICIAN 11/19/2022 Last Documented On 3 10:15AM ; [facility] [M79.621 - Pain in right upp er arm] pain in upper arm Medical Established Patient with Karla Clark CLINICAL PHARMACY TECHNICIAN 11/19/2022 Last Documented On 3 10:15AM ; [facility] [Z68.23 - Body mass index [B NH] 23.0-23.9, adult] assessment of body mass index Medical Established Patient with Karla Clark CLINICAL PHARMACY TECHNICIAN 11/19/2022 Last Documented On 3 10:15AM ; [facility] [M79.601 - Pain in right arm ] pain in right arm Medical Established Patient with Karla Clark CLINICAL PHARMACY TECHNICIAN 09/18/2022 Last Documented On 3 2:33PM ; [facility] [Z68.24 - Body mass index [B NH] 24.0-24.9, adult] assessment of body mass index Medical Established Patient with Karla Clark CLINICAL PHARMACY TECHNICIAN 09/18/2022 Last Documented On 3 2:33PM ; [facility] Assessment of tobacco use Medical Establ ished Patient with Karla Clark CLINICAL PHARMACY TECHNICIAN 09/18/2022 Last Documented On 3 2:33PM ; [facility] [M25.569 - Pain in unspecifi ed knee] arthralgia of knee / patella / tibia / fibula Medical Established Patient with Karla Clark CNP 08/27/2022 Last Documented On 3 9:20AM ; [facility] [Z68.24 - Body mass index [B NH] 24.0-24.9, adult] assessment of body mass index Medical Established Patient with Karla Clark CNP 08/27/2022 Last Documented On 3 9:20AM ; [facility] Intervention and counseling on cessation of tobacco use, 3-10 minutes Discussed medication and nicotine replacement for tobacco cessation Medical Established Patient with Karla Clark CLINICAL PHARMACY TECHNICIAN 08/27/2022 Last Documented On 3 9:20AM ; [facility] Nicotine dependence Medical Established Patient with Karla Clark CLINICAL PHARMACY TECHNICIAN 08/27/2022 Last Documented On 3 9:20AM ; [facility] Visit for routine adult H&P without abnormal findings Medical Established Patient with Karla Clark CNP 08/27/2022 Last Documented On 3 9:20AM ; [facility] [H92.02 - Otalgia, left ear] earache Med ical Established Patient with Karla Clark CLINICAL PHARMACY TECHNICIAN 06/18/2022 Last Documented On 3 12:11PM ; [facility] [M79.604 - Pain in right leg ] pain in right leg Medical Established Patient with Karla Clark CLINICAL PHARMACY TECHNICIAN 06/18/2022 Last Documented On 3 12:11PM ; [facility] [Z68.24 - Body mass index [B NH] 24.0-24.9, adult] assessment of body mass index Medical Established Patient with Karla Clark CLINICAL PHARMACY TECHNICIAN 06/18/2022 Last Documented On 3 12:11PM ; [facility] Assessment of tobacco use Medical Establ ished Patient with Karla Clark CLINICAL PHARMACY TECHNICIAN 06/18/2022 Last Documented On 3 12:11PM ; [facility] Diabetes Risk Test Score was four score 06/18/2022 Medical Established Patient with Karla Clark CLINICAL PHARMACY TECHNICIAN 06/18/2022 Last Documented On 3 12:11PM ; [facility] Schizoaffective disorder Established Patient with Yin Feliz LPCC-S 03/20/2022 Last Documented On 2 12:13AM ; [facility] No cough Medical Established Patient with Karla Amber CLINICAL PHARMACY TECHNICIAN 12/20/2021 Last Documented On 2 3:12PM ; [facility] Visit for: screening for hum an immunodeficiency virus Medical Established Patient with Karla Amber CLINICAL PHARMACY TECHNICIAN 12/20/2021 Last Documented On 2 3:12PM ; [facility] Z68.24 - Body mass index [BM I] 24.0-24.9, adult Medical Established Patient with Karla Amber CLINICAL PHARMACY TECHNICIAN 12/20/2021 Last Documented On 2 3:12PM ; [facility] Bipolar disorder NOS BH Established Patient with Yin Feliz LPCC-S 11/03/2021 Last Documented On 2 7:00PM ; [facility] Bipolar schizoaffective disorder BH Esta blished Patient with Yin Feliz LPCC-S 11/03/2021 Last Documented On 2 7:00PM ; [facility] PLAN Medical Established Patient with Don Pino MD 11/03/2021 Last Documented On 2 10:40AM ; [facility] Abnormal electrocardiogram Medical Estab lished Patient with Don Pino MD 11/03/2021 Last Documented On 2 10:40AM ; [facility] Z68.24 - Body mass index [BM I] 24.0-24.9, adult Medical Established Patient with Don Pino MD 11/03/2021 Last Documented On 2 10:40AM ; [facility] Cough Medical Established Patient with Karla Amber CLINICAL PHARMACY TECHNICIAN 07/28/2021 Last Documented On 2 2:01PM ; [facility] Intervention and counseling on cessation of tobacco use, 3-10 minutes Discussed medication and nicotine replacement for tobacco cessation Medical Established Patient with Karla Amber CLINICAL PHARMACY TECHNICIAN 07/28/2021 Last Documented On 2 2:01PM ; [facility] Nicotine dependence Medical Established Patient with Krala Amber CLINICAL PHARMACY TECHNICIAN 07/28/2021 Last Documented On 2 2:01PM ; [facility] Z68.24 - Body mass index [BM I] 24.0-24.9, adult Medical Established Patient with Karla Amber CLINICAL PHARMACY TECHNICIAN 07/28/2021 Last Documented On 2 2:01PM ; [facility] Assess Colon screening Medical Established Patie nt with Karla Amber CLINICAL PHARMACY TECHNICIAN 05/08/2021 Last Documented On 1 10:59AM ; [facility] Diabetes Risk Test Score was four score 05/08/2021 Medical Established Patient with Karla Amber CLINICAL PHARMACY TECHNICIAN 05/08/2021 Last Documented On 1 10:59AM ; [facility] Routine adult history and ph ysical (18-64 yrs) without abnormal findings Medical Established Patient with Karla Amber CLINICAL PHARMACY TECHNICIAN 05/08/2021 Last Documented On 1 10:59AM ; [facility] Z68.24 - Body mass index [BM I] 24.0-24.9, adult Medical Established Patient with Karla Amber CLINICAL PHARMACY TECHNICIAN 05/08/2021 Last Documented On 1 10:59AM ; [facility] Z68.24 - Body mass index [BM I] 24.0-24.9, adult Medical Established Patient with Karla Amber CLINICAL PHARMACY TECHNICIAN 06/17/2020 Last Documented On 1 10:30AM ; [facility] Overweight Medical Established Patient with Karla Amber CLINICAL PHARMACY TECHNICIAN 06/06/2020 Last Documented On 1 2:06PM ; [facility] Z68.25 - Body mass index [BM I] 25.0-25.9, adult Medical Established Patient with Karla Amber CLINICAL PHARMACY TECHNICIAN 06/06/2020 Last Documented On 1 2:06PM ; [facility] Antiasthmatics [facility] Asthma Clinic-New with Karla Amber CLINICAL PHARMACY TECHNICIAN 05/06/2020 Last Documented On 0 7:27PM ; [facility] Assessment of tobacco use [facility] Asthma Clinic-New with Karla Amber CLINICAL PHARMACY TECHNICIAN 05/06/2020 Last Documented On 0 7:27PM ; [facility] Body mass index [facility] Asthma Clinic-New with Karla Amber CLINICAL PHARMACY TECHNICIAN 05/06/2020 Last Documented On 0 7:27PM ; [facility] Chronic obstructive pulmonary disease CP S [facility] Clinic-New with Karla Amber CLINICAL PHARMACY TECHNICIAN 05/06/2020 Last Documented On 0 7:27PM ; [facility] Overweight CPS [facility] Clinic-New with Karla Floresen CLINICAL PHARMACY TECHNICIAN 05/06/2020 Last Documented On 0 7:27PM ; [facility] Z11.4 - Encounter for screen ing for human immunodeficiency virus [HIV] CPS [facility] Clinic-New with Karlajulius Floresen CLINICAL PHARMACY TECHNICIAN 05/06/2020 Last Documented On 0 7:27PM ; [facility] Diabetes Risk Test Score was three score 03/31/2020 Medical Established Patient with Karlajulius Floresen CLINICAL PHARMACY TECHNICIAN 03/31/2020 Last Documented On 0 3:22PM ; [facility] Overweight Medical Established Patient with Karlajuluis Floresen CLINICAL PHARMACY TECHNICIAN 03/31/2020 Last Documented On 0 3:22PM ; [facility] Z68.25 - Body mass index [BM I] 25.0-25.9, adult Medical Established Patient with Karla Floresen CLINICAL PHARMACY TECHNICIAN 03/31/2020 Last Documented On 0 3:22PM ; [facility] Encounter for Immunization Nurse Visit with Gary Clark CLINICAL PHARMACY TECHNICIAN 03/14/2020 Last Documented On 0 5:11PM ; [facility] Body mass index Medical Established Patient with Karla Floresen CLINICAL PHARMACY TECHNICIAN 02/26/2020 Last Documented On 0 1:18PM ; [facility] Overweight Medical Established Patient with Karla Amber CLINICAL PHARMACY TECHNICIAN 02/26/2020 Last Documented On 0 1:18PM ; [facility] Overweight Medical Established Patient with Karlajulius Floresen CLINICAL PHARMACY TECHNICIAN 07/23/2019 Last Documented On 0 2:33PM ; [facility] Z68.27 - Body mass index (BM I) 27.0-27.9, adult Medical Established Patient with Karlajulius Floresen CLINICAL PHARMACY TECHNICIAN 07/23/2019 Last Documented On 0 2:33PM ; [facility] Occasional asthma CPS- Asthma Clinic- F/U with A french Clark CLINICAL PHARMACY TECHNICIAN 06/05/2019 Last Documented On 0 7:04PM ; [facility] Overweight CPS- Asthma Clinic- F/U with Aim julius Clark CLINICAL PHARMACY TECHNICIAN 06/05/2019 Last Documented On 0 7:04PM ; [facility] Z68.27 - Body mass index (BM I) 27.0-27.9 adult CPS- Asthma Clinic- F/U with Karla Floresen CLINICAL PHARMACY TECHNICIAN 06/05/2019 Last Documented On 0 7:04PM ; [facility] Occasional asthma CPS Med Review with Karla Flores allegra CLINICAL PHARMACY TECHNICIAN 04/23/2019 Last Documented On 9 4:01PM ; [facility] Overweight CPS Med Review with Karla Floresen CLINICAL PHARMACY TECHNICIAN 04/23/2019 Last Documented On 9 4:01PM ; [facility] Z68.27 - Body mass index (BM I) 27.0-27.9 adult CPS Med Review with Karla Floresen CLINICAL PHARMACY TECHNICIAN 04/23/2019 Last Documented On 9 4:01PM ; [facility] Acute pharyngitis Medical Established Patient wi th Brandy Serranoer CLINICAL PHARMACY TECHNICIAN 04/15/2019 Last Documented On 9 12:31PM ; [facility] Asthmatic bronchitis with ac [place] exacerbation Medical Established Patient with Brandy Warren CLINICAL PHARMACY TECHNICIAN 04/15/2019 Last Documented On 9 12:31PM ; [facility] Fagerstrom Score was two Medical Established Pat ient with Brandy Warren CLINICAL PHARMACY TECHNICIAN 04/15/2019 Last Documented On 9 12:31PM ; [facility] PHQ-9: total score was three 04/15/2019 Medical Established Patient with Brandy Warren CLINICAL PHARMACY TECHNICIAN 04/15/2019 Last Documented On 9 12:31PM ; [facility] Body mass index Medical Established Patient with Karla Amber CLINICAL PHARMACY TECHNICIAN 03/05/2019 Last Documented On 9 10:27AM ; [facility] Diabetes Risk Test Score was three score Medical Established Patient with Karla Amber CLINICAL PHARMACY TECHNICIAN 03/05/2019 Last Documented On 9 10:27AM ; [facility] Overweight Medical Established Patient with Karla Amber CLINICAL PHARMACY TECHNICIAN 03/05/2019 Last Documented On 9 10:27AM ; [facility] Z68.28 - Body mass index (BM I) 28.0-28.9, adult Medical Established Patient with Karla Amber CLINICAL PHARMACY TECHNICIAN 12/22/2018 Last Documented On 9 10:32AM ; [facility] Assess routine adult history and physical (18 - 64 yrs) Medical Established Patient with Karla Amber CLINICAL PHARMACY TECHNICIAN 11/06/2018 Last Documented On 9 2:26PM ; [facility] Overweight Medical Established Patient with Karla Amber CLINICAL PHARMACY TECHNICIAN 11/06/2018 Last Documented On 9 2:26PM ; [facility] Z68.28 - Body mass index (BM I) 28.0-28.9, adult Medical Established Patient with Karla Amber CLINICAL PHARMACY TECHNICIAN 11/06/2018 Last Documented On 9 2:26PM ; [facility] Assess dysphagia Medical Established Patient wit h Karla Amber CLINICAL PHARMACY TECHNICIAN 09/11/2018 Last Documented On 9 10:53AM ; [facility] Assess routine adult history and physical (18 - 64 yrs) Medical Established Patient with Karla Amber CLINICAL PHARMACY TECHNICIAN 09/11/2018 Last Documented On 9 10:53AM ; [facility] Assess primary insomnia with sleep apnea Medical Established Patient with Karla Amber CLINICAL PHARMACY TECHNICIAN 09/04/2018 Last Documented On 9 2:23PM ; [facility] Assess routine adult history and physical (18 - 64 yrs) Medical Established Patient with Karla Amber CLINICAL PHARMACY TECHNICIAN 09/04/2018 Last Documented On 9 2:23PM ; [facility] Overweight Medical Established Patient with Karla Amber CLINICAL PHARMACY TECHNICIAN 09/04/2018 Last Documented On 9 2:23PM ; [facility] Z68.29 - Body mass index (BM I) 29.0-29.9, adult Medical Established Patient with Karla Amber CLINICAL PHARMACY TECHNICIAN 09/04/2018 Last Documented On 9 2:23PM ; [facility] Assess vaginal candidiasis Medical Estab lished Patient with Karla Amber CLINICAL PHARMACY TECHNICIAN 07/31/2018 Last Documented On 9 2:12PM ; [facility] Work Phone: Evaluation note* Diagnosis Onset Date Resolution Status Abdominal pain acute Flank pain acute Hypertension acute Prolonged Q-T interval on ECG acute Schizoaffective disorder [facility] Work Phone: Evaluation note Includes: Assessments for all patient encounters Findings Encounter Date [R30.0 - Dysuria] Dysuria Chart Update with Gary Clark CLINICAL PHARMACY TECHNICIAN 03/21/2023 Last Documented On 3 11:27AM ; [facility] [Z12.39 - Encounter for othe r screening for malignant neoplasm of breast] visit for: screening for malignant breast neoplasm Medical Established Patient with Aaron Whitaker CLINICAL PHARMACY TECHNICIAN 02/28/2023 Last Documented On 3 9:51AM ; [facility] [Z68.24 - Body mass index [B NH] 24.0-24.9, adult] assessment of body mass index Medical Established Patient with Aaron Whitaker CLINICAL PHARMACY TECHNICIAN 02/28/2023 Last Documented On 3 9:51AM ; [facility] Assessment of tobacco use Medical Establ ished Patient with Aaron Whitaker CLINICAL PHARMACY TECHNICIAN 02/28/2023 Last Documented On 3 9:51AM ; [facility] Chronic obstructive pulmonary disease Me dical Established Patient with Aaron Whitaker CLINICAL PHARMACY TECHNICIAN 02/28/2023 Last Documented On 3 9:51AM ; [facility] [J20.9 - Acute bronchitis, unspecified] acute bronchitis Medical Established Patient with Karla Clark CLINICAL PHARMACY TECHNICIAN 11/19/2022 Last Documented On 3 10:15AM ; [facility] [M79.621 - Pain in right upp er arm] pain in upper arm Medical Established Patient with Karla Clark CLINICAL PHARMACY TECHNICIAN 11/19/2022 Last Documented On 3 10:15AM ; [facility] [Z68.23 - Body mass index [B NH] 23.0-23.9, adult] assessment of body mass index Medical Established Patient with Karla Clark CLINICAL PHARMACY TECHNICIAN 11/19/2022 Last Documented On 3 10:15AM ; [facility] [M79.601 - Pain in right arm ] pain in right arm Medical Established Patient with Karla Clark CNP 09/18/2022 Last Documented On 3 2:33PM ; [facility] [Z68.24 - Body mass index [B NH] 24.0-24.9, adult] assessment of body mass index Medical Established Patient with Karla Clark CLINICAL PHARMACY TECHNICIAN 09/18/2022 Last Documented On 3 2:33PM ; [facility] Assessment of tobacco use Medical Establ ished Patient with Karla Clark CLINICAL PHARMACY TECHNICIAN 09/18/2022 Last Documented On 3 2:33PM ; [facility] [M25.569 - Pain in unspecifi ed knee] arthralgia of knee / patella / tibia / fibula Medical Established Patient with Karla Clark CLINICAL PHARMACY TECHNICIAN 08/27/2022 Last Documented On 3 9:20AM ; [facility] [Z68.24 - Body mass index [B NH] 24.0-24.9, adult] assessment of body mass index Medical Established Patient with Karla Clark CLINICAL PHARMACY TECHNICIAN 08/27/2022 Last Documented On 3 9:20AM ; [facility] Intervention and counseling on cessation of tobacco use, 3-10 minutes Discussed medication and nicotine replacement for tobacco cessation Medical Established Patient with Karla Clark CNP 08/27/2022 Last Documented On 3 9:20AM ; [facility] Nicotine dependence Medical Established Patient with Karla Clark CLINICAL PHARMACY TECHNICIAN 08/27/2022 Last Documented On 3 9:20AM ; [facility] Visit for routine adult H&P without abnormal findings Medical Established Patient with Karla Clark CLINICAL PHARMACY TECHNICIAN 08/27/2022 Last Documented On 3 9:20AM ; [facility] [H92.02 - Otalgia, left ear] earache Med ical Established Patient with Karla Clark CLINICAL PHARMACY TECHNICIAN 06/18/2022 Last Documented On 3 12:11PM ; [facility] [M79.604 - Pain in right leg ] pain in right leg Medical Established Patient with Karla Clark CLINICAL PHARMACY TECHNICIAN 06/18/2022 Last Documented On 3 12:11PM ; [facility] [Z68.24 - Body mass index [B NH] 24.0-24.9, adult] assessment of body mass index Medical Established Patient with Karla Clark CLINICAL PHARMACY TECHNICIAN 06/18/2022 Last Documented On 3 12:11PM ; [facility] Assessment of tobacco use Medical Establ ished Patient with Karla Clark CLINICAL PHARMACY TECHNICIAN 06/18/2022 Last Documented On 3 12:11PM ; [facility] Diabetes Risk Test Score was four score 06/18/2022 Medical Established Patient with Karla Clark CLINICAL PHARMACY TECHNICIAN 06/18/2022 Last Documented On 3 12:11PM ; [facility] Schizoaffective disorder Established Patient with Yin Feliz LPCC-S 03/20/2022 Last Documented On 2 12:13AM ; [facility] No cough Medical Established Patient with Karla Clark CLINICAL PHARMACY TECHNICIAN 12/20/2021 Last Documented On 2 3:12PM ; [facility] Visit for: screening for hum an immunodeficiency virus Medical Established Patient with Karla Clark CLINICAL PHARMACY TECHNICIAN 12/20/2021 Last Documented On 2 3:12PM ; [facility] Z68.24 - Body mass index [BM I] 24.0-24.9, adult Medical Established Patient with Karla Clark CLINICAL PHARMACY TECHNICIAN 12/20/2021 Last Documented On 2 3:12PM ; [facility] Bipolar disorder NOS BH Established Patient with Yin Feliz LPCC-S 11/03/2021 Last Documented On 2 7:00PM ; [facility] Bipolar schizoaffective disorder BH Esta blished Patient with Yin Feliz LPCC-S 11/03/2021 Last Documented On 2 7:00PM ; [facility] PLAN Medical Established Patient with Don Pino MD 11/03/2021 Last Documented On 2 10:40AM ; [facility] Abnormal electrocardiogram Medical Estab lished Patient with Don Pino MD 11/03/2021 Last Documented On 2 10:40AM ; [facility] Z68.24 - Body mass index [BM I] 24.0-24.9, adult Medical Established Patient with Don Pino MD 11/03/2021 Last Documented On 2 10:40AM ; [facility] Cough Medical Established Patient with Karlajulius Floresen CLINICAL PHARMACY TECHNICIAN 07/28/2021 Last Documented On 2 2:01PM ; [facility] Intervention and counseling on cessation of tobacco use, 3-10 minutes Discussed medication and nicotine replacement for tobacco cessation Medical Established Patient with Karla Amber CLINICAL PHARMACY TECHNICIAN 07/28/2021 Last Documented On 2 2:01PM ; [facility] Nicotine dependence Medical Established Patient with Karla Amber CLINICAL PHARMACY TECHNICIAN 07/28/2021 Last Documented On 2 2:01PM ; [facility] Z68.24 - Body mass index [BM I] 24.0-24.9, adult Medical Established Patient with Karla Amber CLINICAL PHARMACY TECHNICIAN 07/28/2021 Last Documented On 2 2:01PM ; [facility] Assess Colon screening Medical Established Patie nt with Karla Amber CLINICAL PHARMACY TECHNICIAN 05/08/2021 Last Documented On 1 10:59AM ; [facility] Diabetes Risk Test Score was four score 05/08/2021 Medical Established Patient with Karla Amber CLINICAL PHARMACY TECHNICIAN 05/08/2021 Last Documented On 1 10:59AM ; [facility] Routine adult history and ph ysical (18-64 yrs) without abnormal findings Medical Established Patient with Karla Amber CLINICAL PHARMACY TECHNICIAN 05/08/2021 Last Documented On 1 10:59AM ; [facility] Z68.24 - Body mass index [BM I] 24.0-24.9, adult Medical Established Patient with Karla Amber CLINICAL PHARMACY TECHNICIAN 05/08/2021 Last Documented On 1 10:59AM ; [facility] Z68.24 - Body mass index [BM I] 24.0-24.9, adult Medical Established Patient with Karla Amber CLINICAL PHARMACY TECHNICIAN 06/17/2020 Last Documented On 1 10:30AM ; [facility] Overweight Medical Established Patient with Karla Amber CLINICAL PHARMACY TECHNICIAN 06/06/2020 Last Documented On 1 2:06PM ; [facility] Z68.25 - Body mass index [BM I] 25.0-25.9, adult Medical Established Patient with Karla Clark CLINICAL PHARMACY TECHNICIAN 06/06/2020 Last Documented On 1 2:06PM ; [facility] Antiasthmatics [facility] Asthma Clinic-New with Karla Amber CLINICAL PHARMACY TECHNICIAN 05/06/2020 Last Documented On 0 7:27PM ; [facility] Assessment of tobacco use [facility] Clinic-New with Karla Amber CLINICAL PHARMACY TECHNICIAN 05/06/2020 Last Documented On 0 7:27PM ; [facility] Body mass index [facility] Ast[facility] Clinic-New with Karla Amber CLINICAL PHARMACY TECHNICIAN 05/06/2020 Last Documented On 0 7:27PM ; [facility] Chronic obstructive pulmonary disease S [facility]-New with Karla Amber CLINICAL PHARMACY TECHNICIAN 05/06/2020 Last Documented On 0 7:27PM ; [facility] Overweight [facility] Clinic-New with Karlajulius Floresen [facility] 05/06/2020 Last Documented On 0 7:27PM ; [facility] Z11.4 - Encounter for screen ing for human immunodeficiency virus [HIV] [facility] Ast[facility] Clinic-New with Karlajulius Floresen CLINICAL PHARMACY TECHNICIAN 05/06/2020 Last Documented On 0 7:27PM ; [facility] Diabetes Risk Test Score was three score 03/31/2020 Medical Established Patient with Karla Clark CLINICAL PHARMACY TECHNICIAN 03/31/2020 Last Documented On 0 3:22PM ; [facility] Overweight Medical Established Patient with Karla Amber CLINICAL PHARMACY TECHNICIAN 03/31/2020 Last Documented On 0 3:22PM ; [facility] Z68.25 - Body mass index [BM I] 25.0-25.9, adult Medical Established Patient with Karlajulius Floresen CLINICAL PHARMACY TECHNICIAN 03/31/2020 Last Documented On 0 3:22PM ; [facility] Encounter for Immunization Nurse Visit with Gary Clark CLINICAL PHARMACY TECHNICIAN 03/14/2020 Last Documented On 0 5:11PM ; [facility] Body mass index Medical Established Patient with Karla Floresen CLINICAL PHARMACY TECHNICIAN 02/26/2020 Last Documented On 0 1:18PM ; [facility] Overweight Medical Established Patient with Karla Amber CLINICAL PHARMACY TECHNICIAN 02/26/2020 Last Documented On 0 1:18PM ; [facility] Overweight Medical Established Patient with Karla Amber CLINICAL PHARMACY TECHNICIAN 07/23/2019 Last Documented On 0 2:33PM ; [facility] Z68.27 - Body mass index (BM I) 27.0-27.9, adult Medical Established Patient with Karlajulius Floresen CLINICAL PHARMACY TECHNICIAN 07/23/2019 Last Documented On 0 2:33PM ; [facility] Occasional asthma CPS- Asthma Clinic- F/U with A imjulius Floresen CLINICAL PHARMACY TECHNICIAN 06/05/2019 Last Documented On 0 7:04PM ; [facility] Overweight CPS- [facility]- F/U with Aim julius Floresen CLINICAL PHARMACY TECHNICIAN 06/05/2019 Last Documented On 0 7:04PM ; [facility] Z68.27 - Body mass index (BM I) 27.0-27.9 adult CPS- [facility] Clinic- F/U with Karlajulius Floresen CLINICAL PHARMACY TECHNICIAN 06/05/2019 Last Documented On 0 7:04PM ; [facility] Occasional asthma CPS Med Review with Karla Sandra en CLINICAL PHARMACY TECHNICIAN 04/23/2019 Last Documented On 9 4:01PM ; [facility] Overweight CPS Med Review with Karla Amber CLINICAL PHARMACY TECHNICIAN 04/23/2019 Last Documented On 9 4:01PM ; [facility] Z68.27 - Body mass index (BM I) 27.0-27.9 adult CPS Med Review with Karla Amber CLINICAL PHARMACY TECHNICIAN 04/23/2019 Last Documented On 9 4:01PM ; [facility] Acute pharyngitis Medical Established Patient wi th Brandy Kelley CLINICAL PHARMACY TECHNICIAN 04/15/2019 Last Documented On 9 12:31PM ; [facility] Asthmatic bronchitis with ac [place] exacerbation Medical Established Patient with Brnady Warren CLINICAL PHARMACY TECHNICIAN 04/15/2019 Last Documented On 9 12:31PM ; [facility] Fagerstrom Score was two Medical Established Pat ient with Brandy Warren CLINICAL PHARMACY TECHNICIAN 04/15/2019 Last Documented On 9 12:31PM ; [facility] PHQ-9: total score was three 04/15/2019 Medical Established Patient with Brandy Kelley CLINICAL PHARMACY TECHNICIAN 04/15/2019 Last Documented On 9 12:31PM ; [facility] Body mass index Medical Established Patient with Karlajulius Floresen CLINICAL PHARMACY TECHNICIAN 03/05/2019 Last Documented On 9 10:27AM ; [facility] Diabetes Risk Test Score was three score Medical Established Patient with Karla Amber CLINICAL PHARMACY TECHNICIAN 03/05/2019 Last Documented On 9 10:27AM ; [facility] Overweight Medical Established Patient with Karla Amber CLINICAL PHARMACY TECHNICIAN 03/05/2019 Last Documented On 9 10:27AM ; [facility] Z68.28 - Body mass index (BM I) 28.0-28.9, adult Medical Established Patient with Karla Amber CLINICAL PHARMACY TECHNICIAN 12/22/2018 Last Documented On 9 10:32AM ; [facility] Assess routine adult history and physical (18 - 64 yrs) Medical Established Patient with Karla Amber CLINICAL PHARMACY TECHNICIAN 11/06/2018 Last Documented On 9 2:26PM ; [facility] Overweight Medical Established Patient with Karla Amber CLINICAL PHARMACY TECHNICIAN 11/06/2018 Last Documented On 9 2:26PM ; [facility] Z68.28 - Body mass index (BM I) 28.0-28.9, adult Medical Established Patient with Karla Amber CLINICAL PHARMACY TECHNICIAN 11/06/2018 Last Documented On 9 2:26PM ; [facility] Assess dysphagia Medical Established Patient wit h Karla Amber CLINICAL PHARMACY TECHNICIAN 09/11/2018 Last Documented On 9 10:53AM ; [facility] Assess routine adult history and physical (18 - 64 yrs) Medical Established Patient with Karla Amber CLINICAL PHARMACY TECHNICIAN 09/11/2018 Last Documented On 9 10:53AM ; [facility] Assess primary insomnia with sleep apnea Medical Established Patient with Karla Amber CLINICAL PHARMACY TECHNICIAN 09/04/2018 Last Documented On 9 2:23PM ; [facility] Assess routine adult history and physical (18 - 64 yrs) Medical Established Patient with Karla Amber CLINICAL PHARMACY TECHNICIAN 09/04/2018 Last Documented On 9 2:23PM ; [facility] Overweight Medical Established Patient with Karla Clark CLINICAL PHARMACY TECHNICIAN 09/04/2018 Last Documented On 9 2:23PM ; [facility] Z68.29 - Body mass index (BM I) 29.0-29.9, adult Medical Established Patient with Karla Clark CLINICAL PHARMACY TECHNICIAN 09/04/2018 Last Documented On 9 2:23PM ; [facility] Assess vaginal candidiasis Medical Estab lished Patient with Karla Clark CLINICAL PHARMACY TECHNICIAN 07/31/2018 Last Documented On 9 2:12PM ; [facility] Work Phone: Evaluation note* Diagnosis Onset Date Resolution Status Abdominal pain acute Flank pain acute Hypertension acute Prolonged Q-T interval on ECG acute Schizoaffective disorder acu te Abdominal pain acute MYESHA (acute kidney injury) [place] Flank pain acute Nausea & vomiting acute Schizoaffective disorder acu [facility] Work Phone: Evaluation note* Diagnosis Neoplasm of unspecified behavior of bone, soft tissue, and skin- Primary documented in this encounter [facility] Diagnosis Onset Date Resolution Status Acute psychosis acute Chronic schizophrenia acute [facility] Work Phone: Evaluation note* Diagnosis Onset Date Resolution Status Acute psychosis acute Chronic schizophrenia acute Schizoaffective disorder acu [facility] Work Phone: Evaluation note* Diagnosis Nontoxic multinodular goiter- Primary Thyroid nodule Nontoxic uninodular goiter [facility] Includes: Assessments for all patient encounters Findings Encounter Date [R26.89 - Other abnormalitie s of gait and mobility] staggering gait Chart Update with Karla Clark CNP 11/15/2023 Last Documented On 4 12:07PM ; [facility] [F17.210 - Nicotine dependen ce, cigarettes, uncomplicated] continuous dependence on cigarette smoking Medical Established Patient with Karla Clark CLINICAL PHARMACY TECHNICIAN 10/04/2023 Last Documented On 4 6:30PM ; [facility] [Z12.11 - Encounter for scre ening for malignant neoplasm of colon] Colon screening Medical Established Patient with Karla Clark CLINICAL PHARMACY TECHNICIAN 10/04/2023 Last Documented On 4 6:30PM ; [facility] [Z68.25 - Body mass index [B NH] 25.0-25.9, adult] assessment of body mass index Medical Established Patient with Karla Clark CLINICAL PHARMACY TECHNICIAN 10/04/2023 Last Documented On 4 6:30PM ; [facility] Diabetes Risk Test Score was five score 10/04/2023 Medical Established Patient with Karla Clark CLINICAL PHARMACY TECHNICIAN 10/04/2023 Last Documented On 4 6:30PM ; [facility] Encounter for Immunization Medical Estab lished Patient with Karla Clark CLINICAL PHARMACY TECHNICIAN 10/04/2023 Last Documented On 4 6:30PM ; [facility] [D48.5 - Neoplasm of uncerta in behavior of skin] skin neoplasm of uncertain behavior Medical Established Patient with Karla Clark CLINICAL PHARMACY TECHNICIAN 05/22/2023 Last Documented On 3 1:30PM ; [facility] [Z68.24 - Body mass index [B NH] 24.0-24.9, adult] assessment of body mass index Medical Established Patient with Karla Clark CLINICAL PHARMACY TECHNICIAN 05/22/2023 Last Documented On 3 1:30PM ; [facility] Assessment of tobacco use Medical Establ ished Patient with Karla Clark CLINICAL PHARMACY TECHNICIAN 05/22/2023 Last Documented On 3 1:30PM ; [facility] [R30.0 - Dysuria] Dysuria Chart Update with Gary Clark CLINICAL PHARMACY TECHNICIAN 03/21/2023 Last Documented On 3 11:27AM ; [facility] [Z12.39 - Encounter for othe r screening for malignant neoplasm of breast] visit for: screening for malignant breast neoplasm Medical Established Patient with Aaron Whitaker CLINICAL PHARMACY TECHNICIAN 02/28/2023 Last Documented On 3 9:51AM ; [facility] [Z68.24 - Body mass index [B NH] 24.0-24.9, adult] assessment of body mass index Medical Established Patient with Aaron Whitaker CLINICAL PHARMACY TECHNICIAN 02/28/2023 Last Documented On 3 9:51AM ; [facility] Assessment of tobacco use Medical Establ ished Patient with Aaron Whitaker CLINICAL PHARMACY TECHNICIAN 02/28/2023 Last Documented On 3 9:51AM ; [facility] Chronic obstructive pulmonary disease Me dical Established Patient with Aaron Whitaker CLINICAL PHARMACY TECHNICIAN 02/28/2023 Last Documented On 3 9:51AM ; [facility] [J20.9 - Acute bronchitis, unspecified] acute bronchitis Medical Established Patient with Karla Clark CLINICAL PHARMACY TECHNICIAN 11/19/2022 Last Documented On 3 10:15AM ; [facility] [M79.621 - Pain in right upp er arm] pain in upper arm Medical Established Patient with Karla Clark CLINICAL PHARMACY TECHNICIAN 11/19/2022 Last Documented On 3 10:15AM ; [facility] [Z68.23 - Body mass index [B NH] 23.0-23.9, adult] assessment of body mass index Medical Established Patient with Karla Clark CLINICAL PHARMACY TECHNICIAN 11/19/2022 Last Documented On 3 10:15AM ; [facility] [M79.601 - Pain in right arm ] pain in right arm Medical Established Patient with Karla Clark CLINICAL PHARMACY TECHNICIAN 09/18/2022 Last Documented On 3 2:33PM ; [facility] [Z68.24 - Body mass index [B NH] 24.0-24.9, adult] assessment of body mass index Medical Established Patient with Karla Clark CLINICAL PHARMACY TECHNICIAN 09/18/2022 Last Documented On 3 2:33PM ; [facility] Assessment of tobacco use Medical Establ ished Patient with Karla Clark CLINICAL PHARMACY TECHNICIAN 09/18/2022 Last Documented On 3 2:33PM ; [facility] [M25.569 - Pain in unspecifi ed knee] arthralgia of knee / patella / tibia / fibula Medical Established Patient with Karla Clark CLINICAL PHARMACY TECHNICIAN 08/27/2022 Last Documented On 3 9:20AM ; [facility] [Z68.24 - Body mass index [B NH] 24.0-24.9, adult] assessment of body mass index Medical Established Patient with Karla Clark CLINICAL PHARMACY TECHNICIAN 08/27/2022 Last Documented On 3 9:20AM ; [facility] Intervention and counseling on cessation of tobacco use, 3-10 minutes Discussed medication and nicotine replacement for tobacco cessation Medical Established Patient with Karla Clark CLINICAL PHARMACY TECHNICIAN 08/27/2022 Last Documented On 3 9:20AM ; [facility] Nicotine dependence Medical Established Patient with Karlajulius Clark CLINICAL PHARMACY TECHNICIAN 08/27/2022 Last Documented On 3 9:20AM ; [facility] Visit for routine adult H&P without abnormal findings Medical Established Patient with Karla Clark CLINICAL PHARMACY TECHNICIAN 08/27/2022 Last Documented On 3 9:20AM ; [facility] [H92.02 - Otalgia, left ear] earache Med ical Established Patient with Karla Clark CLINICAL PHARMACY TECHNICIAN 06/18/2022 Last Documented On 3 12:11PM ; [facility] [M79.604 - Pain in right leg ] pain in right leg Medical Established Patient with Karla Clark CLINICAL PHARMACY TECHNICIAN 06/18/2022 Last Documented On 3 12:11PM ; [facility] [Z68.24 - Body mass index [B NH] 24.0-24.9, adult] assessment of body mass index Medical Established Patient with Karla Clark CLINICAL PHARMACY TECHNICIAN 06/18/2022 Last Documented On 3 12:11PM ; [facility] Assessment of tobacco use Medical Establ ished Patient with Karla Clark CLINICAL PHARMACY TECHNICIAN 06/18/2022 Last Documented On 3 12:11PM ; [facility] Diabetes Risk Test Score was four score 06/18/2022 Medical Established Patient with Karla Clark CLINICAL PHARMACY TECHNICIAN 06/18/2022 Last Documented On 3 12:11PM ; [facility] Schizoaffective disorder BH Established Patient with Yin Feliz [facility] 03/20/2022 Last Documented On 2 12:13AM ; [facility] No cough Medical Established Patient with Karla Clark CLINICAL PHARMACY TECHNICIAN 12/20/2021 Last Documented On 2 3:12PM ; [facility] Visit for: screening for hum an immunodeficiency virus Medical Established Patient with Karla Clark CLINICAL PHARMACY TECHNICIAN 12/20/2021 Last Documented On 2 3:12PM ; [facility] Z68.24 - Body mass index [BM I] 24.0-24.9, adult Medical Established Patient with Karla Clark CLINICAL PHARMACY TECHNICIAN 12/20/2021 Last Documented On 2 3:12PM ; [facility] Bipolar disorder NOS BH Established Patient with Yin Feliz LPCC-S 11/03/2021 Last Documented On 2 7:00PM ; [facility] Bipolar schizoaffective disorder BH Esta blished Patient with Yin Feliz LPCC-S 11/03/2021 Last Documented On 2 7:00PM ; [facility] PLAN Medical Established Patient with Don Pino MD 11/03/2021 Last Documented On 2 10:40AM ; [facility] Abnormal electrocardiogram Medical Estab lished Patient with Don Pino MD 11/03/2021 Last Documented On 2 10:40AM ; [facility] Z68.24 - Body mass index [BM I] 24.0-24.9, adult Medical Established Patient with Don Pino MD 11/03/2021 Last Documented On 2 10:40AM ; [facility] Cough Medical Established Patient with Karla Clark CLINICAL PHARMACY TECHNICIAN 07/28/2021 Last Documented On 2 2:01PM ; [facility] Intervention and counseling on cessation of tobacco use, 3-10 minutes Discussed medication and nicotine replacement for tobacco cessation Medical Established Patient with Karla Amber CLINICAL PHARMACY TECHNICIAN 07/28/2021 Last Documented On 2 2:01PM ; [facility] Nicotine dependence Medical Established Patient with Karla Amber CLINICAL PHARMACY TECHNICIAN 07/28/2021 Last Documented On 2 2:01PM ; [facility] Z68.24 - Body mass index [BM I] 24.0-24.9, adult Medical Established Patient with Karlajulius Clark CLINICAL PHARMACY TECHNICIAN 07/28/2021 Last Documented On 2 2:01PM ; [facility] Assess Colon screening Medical Established Patie nt with Karla Amber CLINICAL PHARMACY TECHNICIAN 05/08/2021 Last Documented On 1 10:59AM ; [facility] Diabetes Risk Test Score was four score 05/08/2021 Medical Established Patient with Karla Amber CLINICAL PHARMACY TECHNICIAN 05/08/2021 Last Documented On 1 10:59AM ; [facility] Routine adult history and ph ysical (18-64 yrs) without abnormal findings Medical Established Patient with Karla Amber CLINICAL PHARMACY TECHNICIAN 05/08/2021 Last Documented On 1 10:59AM ; [facility] Z68.24 - Body mass index [BM I] 24.0-24.9, adult Medical Established Patient with Karla Amber CLINICAL PHARMACY TECHNICIAN 05/08/2021 Last Documented On 1 10:59AM ; [facility] Z68.24 - Body mass index [BM I] 24.0-24.9, adult Medical Established Patient with Karla Amber CLINICAL PHARMACY TECHNICIAN 06/17/2020 Last Documented On 1 10:30AM ; [facility] Overweight Medical Established Patient with Karla Amber CLINICAL PHARMACY TECHNICIAN 06/06/2020 Last Documented On 1 2:06PM ; [facility] Z68.25 - Body mass index [BM I] 25.0-25.9, adult Medical Established Patient with Karla Amber CLINICAL PHARMACY TECHNICIAN 06/06/2020 Last Documented On 1 2:06PM ; [facility] Antiasthmatics [facility] Asthma Clinic-New with Karla Amber CLINICAL PHARMACY TECHNICIAN 05/06/2020 Last Documented On 0 7:27PM ; [facility] Assessment of tobacco use [facility] Ast[facility] Clinic-New with Karla Amber CLINICAL PHARMACY TECHNICIAN 05/06/2020 Last Documented On 0 7:27PM ; [facility] Body mass index [facility] Asthma Clinic-New with Karla Amber CLINICAL PHARMACY TECHNICIAN 05/06/2020 Last Documented On 0 7:27PM ; [facility] Chronic obstructive pulmonary disease S [facility]-New with Karla Amber CLINICAL PHARMACY TECHNICIAN 05/06/2020 Last Documented On 0 7:27PM ; [facility] Overweight CPS [facility] Clinic-New with Karla Clark CLINICAL PHARMACY TECHNICIAN 05/06/2020 Last Documented On 0 7:27PM ; [facility] Z11.4 - Encounter for screen ing for human immunodeficiency virus [HIV] C[facility]-New with Karla Floresen CLINICAL PHARMACY TECHNICIAN 05/06/2020 Last Documented On 0 7:27PM ; [facility] Diabetes Risk Test Score was three score 03/31/2020 Medical Established Patient with Karlajulius Floresen CLINICAL PHARMACY TECHNICIAN 03/31/2020 Last Documented On 0 3:22PM ; [facility] Overweight Medical Established Patient with Karlajulius Floresen CLINICAL PHARMACY TECHNICIAN 03/31/2020 Last Documented On 0 3:22PM ; [facility] Z68.25 - Body mass index [BM I] 25.0-25.9, adult Medical Established Patient with Karla Clark CLINICAL PHARMACY TECHNICIAN 03/31/2020 Last Documented On 0 3:22PM ; [facility] Encounter for Immunization Nurse Visit with Gary lCark CLINICAL PHARMACY TECHNICIAN 03/14/2020 Last Documented On 0 5:11PM ; [facility] Body mass index Medical Established Patient with Karla Floresen CLINICAL PHARMACY TECHNICIAN 02/26/2020 Last Documented On 0 1:18PM ; [facility] Overweight Medical Established Patient with Karlajulius Floresen CLINICAL PHARMACY TECHNICIAN 02/26/2020 Last Documented On 0 1:18PM ; [facility] Overweight Medical Established Patient with Karla Floresen CLINICAL PHARMACY TECHNICIAN 07/23/2019 Last Documented On 0 2:33PM ; [facility] Z68.27 - Body mass index (BM I) 27.0-27.9, adult Medical Established Patient with Karla Floresen CLINICAL PHARMACY TECHNICIAN 07/23/2019 Last Documented On 0 2:33PM ; [facility] Occasional asthma CPS- Asthma Clinic- F/U with A french Clark CLINICAL PHARMACY TECHNICIAN 06/05/2019 Last Documented On 0 7:04PM ; [facility] Overweight CPS- [facility] Clinic- F/U with Aim julius Floresen CLINICAL PHARMACY TECHNICIAN 06/05/2019 Last Documented On 0 7:04PM ; [facility] Z68.27 - Body mass index (BM I) 27.0-27.9 adult CPS- [facility] Clinic- F/U with Karla Clark CLINICAL PHARMACY TECHNICIAN 06/05/2019 Last Documented On 0 7:04PM ; [facility] Occasional asthma CPS Med Review with Karlajulius dinh CLINICAL PHARMACY TECHNICIAN 04/23/2019 Last Documented On 9 4:01PM ; [facility] Overweight CPS Med Review with Karlajulius Clark CLINICAL PHARMACY TECHNICIAN 04/23/2019 Last Documented On 9 4:01PM ; [facility] Z68.27 - Body mass index (BM I) 27.0-27.9 adult CPS Med Review with Karlajulius Clark CLINICAL PHARMACY TECHNICIAN 04/23/2019 Last Documented On 9 4:01PM ; [facility] Acute pharyngitis Medical Established Patient wi th Brandy Kelley CLINICAL PHARMACY TECHNICIAN 04/15/2019 Last Documented On 9 12:31PM ; [facility] Asthmatic bronchitis with ac [place] exacerbation Medical Established Patient with Brandy Warren CLINICAL PHARMACY TECHNICIAN 04/15/2019 Last Documented On 9 12:31PM ; [facility] Fagerstrom Score was two Medical Established Pat ient with Brandy Warren CLINICAL PHARMACY TECHNICIAN 04/15/2019 Last Documented On 9 12:31PM ; [facility] PHQ-9: total score was three 04/15/2019 Medical Established Patient with Brandy Warren CLINICAL PHARMACY TECHNICIAN 04/15/2019 Last Documented On 9 12:31PM ; [facility] Body mass index Medical Established Patient with Karla Clark CLINICAL PHARMACY TECHNICIAN 03/05/2019 Last Documented On 9 10:27AM ; [facility] Diabetes Risk Test Score was three score Medical Established Patient with Karla Amber CLINICAL PHARMACY TECHNICIAN 03/05/2019 Last Documented On 9 10:27AM ; [facility] Overweight Medical Established Patient with Karla Amber CLINICAL PHARMACY TECHNICIAN 03/05/2019 Last Documented On 9 10:27AM ; [facility] Z68.28 - Body mass index (BM I) 28.0-28.9, adult Medical Established Patient with Karlajulius Floresen CLINICAL PHARMACY TECHNICIAN 12/22/2018 Last Documented On 9 10:32AM ; [facility] Assess routine adult history and physical (18 - 64 yrs) Medical Established Patient with Karla Amber CLINICAL PHARMACY TECHNICIAN 11/06/2018 Last Documented On 9 2:26PM ; [facility] Overweight Medical Established Patient with Karla Amber CLINICAL PHARMACY TECHNICIAN 11/06/2018 Last Documented On 9 2:26PM ; [facility] Z68.28 - Body mass index (BM I) 28.0-28.9, adult Medical Established Patient with Karla Amber CLINICAL PHARMACY TECHNICIAN 11/06/2018 Last Documented On 9 2:26PM ; [facility] Assess dysphagia Medical Established Patient wit h Karla Amber CLINICAL PHARMACY TECHNICIAN 09/11/2018 Last Documented On 9 10:53AM ; [facility] Assess routine adult history and physical (18 - 64 yrs) Medical Established Patient with Karla Amber CLINICAL PHARMACY TECHNICIAN 09/11/2018 Last Documented On 9 10:53AM ; [facility] Assess primary insomnia with sleep apnea Medical Established Patient with Karla Amber CLINICAL PHARMACY TECHNICIAN 09/04/2018 Last Documented On 9 2:23PM ; [facility] Assess routine adult history and physical (18 - 64 yrs) Medical Established Patient with Karla Amber CLINICAL PHARMACY TECHNICIAN 09/04/2018 Last Documented On 9 2:23PM ; [facility] Overweight Medical Established Patient with Karla Amber CLINICAL PHARMACY TECHNICIAN 09/04/2018 Last Documented On 9 2:23PM ; [facility] Z68.29 - Body mass index (BM I) 29.0-29.9, adult Medical Established Patient with Karla Amber CLINICAL PHARMACY TECHNICIAN 09/04/2018 Last Documented On 9 2:23PM ; [facility] Assess vaginal candidiasis Medical Estab lished Patient with Karla Amber CLINICAL PHARMACY TECHNICIAN 07/31/2018 Last Documented On 9 2:12PM ; [facility] Work Phone: Evaluation note* Diagnosis Onset Date Resolution Status MYESHA (acute kidney injury) [place] [facility]: [facility]* Diagnosis Onset Date Resolution Status Acute psychosis acute MYESHA (acute kidney injury) ac [place] Chronic schizophrenia acute Schizoaffective disorder acu te [facility] Work Phone: Evaluation note* Diagnosis Stroke-like symptom- Primary Other symptoms involving nervous and musculoskeletal systems Migraine variant Variants of migraine, not elsewhere classified, without mention of intractable migraine without mention of status migrainosus [facility] Transportation unavailable- Primary documented in this encounter [facility]* Diagnosis Gait instability- Primary Abnormality of gait Tardive dyskinesia Subacute dyskinesia due to drugs Psychiatric disturbance Unspecified nonpsychotic mental disorder [place] use documented in [facility] encounter [facility]* Diagnosis Lumbar radiculopathy- Primary Thoracic or lumbosacral neuritis or radiculitis, unspecified documented in this encounter [facility]* Diagnosis Abnormal EKG Nonspecific abnormal electrocardiogram (ECG) (EKG) RBBB Right bundle branch block History of NH (myocardial infarction) Old myocardial infarction Tobacco abuse counseling Counseling on substance use and abuse [facility]* Diagnosis Onset Date Resolution Status Admit Date Closed fracture of right proximal humerus acute February 08, 2025 11:54am Other specified postprocedural states noneactive February 08, 2025 11:54am [facility] Work Phone: History and physical note Author Joe rodriguez [facility] August 16, 2023 12:20pm Note Date/Time August 16, 2023 11: 24am [facility] [address] [place] [address] Psychiatry H&P Signed Patient: Gail Almeida MR#: [id number] : 1955 Acct:[id number] Age/Sex: 67 / F Adm Date: 4 Loc: Room: [address] [place] [address] Type: ADM IN Attending Dr: Joe Davis [...] 2 times total 1 time here in [facility] and another time at a different hospital Past suicide attempts: Denies previous suicidal attempts Previous medications: Reports Seroquel, [place], Zyprexa, Cogentin Alcohol and Drug Use: Denies alcohol use. Denies street drugs. 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 Review of symptoms: Constitutional: Denies chills and [...] SI, HI, hallucination Insight: Poor Judgment: Poor [facility] Medical History Localized swelling, mass and lump, [...] oral powder 17 g PO DAILY PRN Nguswtyodctc61/10/23 [History Confirmed 08/15/23] quetiapine 400 mg tablet,extended [...] 08/15/23] dextromethorphan-guaifenesin 30 mg-600 mg tablet extended ocmuxgw83 hr (Mucus DM) 1 tab PO Q12HR [...] Appearance Clear Urine pH 7.0 Ur Specific [place] 1.005 Urine Protein Negative Urine Glucose (UA) Normal Urine Ketones Negative Urine Occult Blood Negative Urine Nitrite Negative Ur Leukocyte Esterase 3+ H Urine RBC None seen Urine WBC 3-4 [place] 0.50 L Assessment/Plan (1) Schizoaffective disorder: Plan [...] PO BID and 400 mg PO HS [place] 300 mg PO BID. Obtain lithium level. [...] signed by Joe Davis MD> 08/16/23 1220 [facility] Work Phone: Hiszfla general Narrative - Reported* Type Description Date Medical History asthma Medical History depression Medical History parkinson disease Medical History bipolar Surgical History tubal ligation Surgical History hysterectomy Hospitalization History Virax Other Hisoonq general Narrative - Reported* Type Description Date Medical History asthma Medical History depression Medical History parkinson disease Medical History bipolar Medical History schizophrenia Medical History migraine headache Medical History COPD Surgical History tubal ligation Surgical History hysterectomy Hospitalization History K94 Discoveries Gnzo Other Hiseifn general Narrative - Reported Includes: Medical History in patient's chart Description Last Updated 1 previous live (s) 02/28/2023 Last Documented On 3 9:51AM ; [facility] Previously 1 time(s) 02/28/2023 Last Documented On 3 9:51AM ; [facility] Previous hospitalizations 09/18/2022 Last Documented On 3 2:33PM ; [facility] Currently nursing 11/03/2021 Last Documented On 2 7:00PM ; [facility] status unknown for sexually tra nsmitted infection 11/03/2021 Last Documented On 2 7:00PM ; [facility] 11/03/2021 Last Documented On 2 7:00PM ; [facility] Not planning to have a baby in the next 12 months 11/03/2021 Last Documented On 2 7:00PM ; [facility] Heart Attack 03/2021 [facility] 1 07/09/2020 Last Documented On 1 10:59AM ; [facility] A recent immunization for flu 05/06/2020 Last Documented On 0 7:27PM ; [facility] Patient gave verbal consent for teleheal th 08/31/2019 Last Documented On 0 9:21AM ; [facility] History of abnormal electrocardiogram Last Documented On 9 2:12PM ; [facility] History of asthma 07/31/2018 Last Documented On 9 2:12PM ; [facility] History of cardiovascular disorder 07/31 Last Documented On 9 2:12PM ; [facility] History of respiratory disorder 07/31/19 19 Last Documented On 9 2:12PM ; [facility] History of bipolar disorder NOS 07/31/19 19 Last Documented On 9 2:12PM ; [facility] History of depression 07/31/2018 Last Documented On 9 2:12PM ; [facility] History of psychiatric disorders 019 Last Documented On 9 2:12PM ; [facility] Work Phone: History of Present illness Narrative History of Present Illness not supported for this document type No [facility] of [facility] Work Phone: Hospital Discharge instructions No data available for this section [facility] instructions[facility]ulatory Orders* PT/OT/SP OutPatient Referral [...] not already scheduled one. Dr. Emory Adame [facility] [address] [place], [place] [id number] [phone] Work Phone: Hospital Discharge instructions Additional Instructions 1. Supplanted pillows 2. Small amount of Vaseline to sutures twice daily 3. Okay to shower in the morning, keep wound dry and clean 4. Take antibiotics as prescribed 5. Tylenol or Motrin for discomfort 6. [facility] Work Phone: Instructions Instructions not supported for this document type No Instructions [facility] Work Phone: patient problem outcome Narrative Includes: Evaluations & Outcomes for active Goals No Outcomes [facility] Work Phone: progress note* Progress note Date Encounter Last Documented by 08/27/2022 Medical Established Patient Last documented on 08/27/2022; 8:56 AM, Karla Clark CNP; [facility] Active Problems & Conditions - J45.909 [...] EVERY DAY, 30 days, 11 refills - [place] Carbonate 300MG Oral Tablet 300 MG take [...] Bipolar disorder NOS Depression Heart Attack 03/2021 [facility]. Surgical: - Hysterectomy Social History Environmental [...] BP-Sitting L115/73 mmHg BP Cuff SizeRegular Pulse Rate-Krlkfpl66 bpm Temp-Yrwbbtrd38 F Ywbnvi21 in Mxgcub404 lbs 9.6 oz Body Mass Index24.6 kg/m2 Body Surface Area1.7 m2 Oxygen Nvdktdcduz00 % General Appearance: - Appears distressed. - [...] and Counseling satisfied 08/27/2022. [facility] note Author Joe rodriguez [facility] August 17, 2023 6:38am Note Date/Time August 17, 2023 6:3 9am [facility] [address] [place] [address] Psychiatry Progress Note Signed Patient: Gail Almeida MR#: [id number] : 1955 Acct:[id number] Age/Sex: 67 / F Adm Date: 4 Loc: 1S Room: [address] [place] [address] Type : ADM IN Attending Dr: Joe [...] 28.6 L TSH 3rd Generation 9.75 H [place] 0.50 L Assessment/Plan Assessment/Plan (1) Schizoaffective disorder: Plan Patient denied any hallucinations this am. No SI/HI. Cogentin 0.5 mg PO BID Clonidine 0.1 mg PO Daily Zyprexa 5 mg PO Daily and 12.5 mg PO QHS Seroquel 12.5 mg PO BID and 400 mg PO HS [place] 300 mg PO BID. Obtain lithium level. [...] signed by Joe Davis MD> 08/17/23 0638 [facility] Work Phone: Progress note Author Joe rodriguez [facility] August 18, 2023 9:29am Note Date/Time August 18, 2023 9:2 9am [facility] [address] [place] [address] Psychiatry Progress Note Signed Patient: Gail Almeida MR#: [id number] : 1955 Acct:[id number] Age/Sex: 67 / F Adm Date: 4 Loc: 1S Room: [address] [place] [address] Type : ADM IN Attending Dr: Joe [...] PO BID and 400 mg PO HS [place] 300 mg PO BID. Obtain lithium level. [...] <Electronically signed by Joe Davis MD> 08/18/23928 [facility] Work Phone: Progress note Author Reynaldo Kraft [facility] August 19, 2023 12:04pm Note Date/Time August 19, 2023 12: 04pm [facility] [address] [place] [address] Psychiatry Progress Note Signed Patient: Gail Almeida MR#: [id number] : 1955 Acct:[id number] Age/Sex: 67 / F Adm Date: 4 Loc: Room: [address] [place] [address] Type : ADM IN Attending Dr: Joe [...] PO BID and 400 mg PO HS [place] 300 mg PO BID. Cipro 500mg PO BID Continue to monitor mental status Encourage group participation and medication compliance Risk benefits alternatives explained Documented By: Reynaldo Kraft MD 08/19/23 1203 Signed By: <Electronically signed by Reynaldo Kraft MD> 08/19/23 1204 [facility] Work Phone: Progress note* Progress note Date Encounter Last Documented by 06/17/2024 Chart Update Last documented on 06/17/2024; 10:29 AM, Karla Clark CLINICAL PHARMACY TECHNICIAN; [facility] Active Problems & Conditions - J45.909 [...] once daily, 0 days, 0 refills - [place] Carbonate 300 MG Oral Tablet one tablet [...] Bipolar disorder NOS Depression Heart Attack 03/2021 [facility]. Surgical: - General surgery right shoulder [...] Health Reminders - Mammogram Needed satisfied 05/29[facility]2024. [facility] note Date Encounter Last Documented by 06/17/2024 Chart Update Last documented on 06/17/2024; 11:30 AM, Karla Clark CNP; [facility] Active Problems & Conditions - J45.909 [...] once daily, 0 days, 0 refills - [place] Carbonate 300 MG Oral Tablet one tablet [...] Bipolar disorder NOS Depression Heart Attack 03/2021 [facility]. Surgical: - General surgery right shoulder [...] breast Outside Diagn Tests/Ultrasound: US Breast Bilateral (63450) Outside Diagn Tests/Imaging: Mammogram - Diagnostic Bilateral ([id number]) EndCited Advance Directives - Advance Care Planning Care Team - Karla Clark CNP Health Reminders - Mammogram Needed satisfied 05/29/2024. [facility] (narrative)No Reason for Referral RecordedHealth [facility] Work Phone: Reason for referral (narrative)* Consultation (Routine) - Pending Review Specialty Diagnoses / Procedures Referred By Conthiral t Referred To Contact Physical Therapy Diagnoses Gait instability Procedures [place] OFFICE/OUTPATIENT NEW HIGH MDM 60 MINUTES Lucy Gilbert DO [address] [place] [address] Johan Alvarez, PT [address] [place] [address] Referral ID Status Reason Start Date Expiration Date Visits Requested Visits Authorized [id number] Pending Review Specialty Services Required 02/18/2024 08/16/2024 1 1 VI Martin for referral (narrative)No reason for referral information availableFairfield [facility] Center Work Phone: Reason for visit Narrative* Consultation (Routine) - Closed Specialty Diagnoses / Procedures Referred By Contac t Referred To Contact Neurology Diagnoses Unspecified abnormalities of gait and mobility Procedures [place] OFFICE/OUTPATIENT NEW LOW MDM 30 MINUTES Vida Culp MD [address] [place] [address] Héctor Vallecillo MD [address] [place] [address] Referral ID Status Reason Start Date Expiration Date Visits Re quested Visits Authorized [id number] Closed 01/29/2024 07/27/2024 1 1 [facility] Narrative* Cardiology (Routine) - Closed Specialty Diagnoses / Procedures Referred By Contac t Referred To Contact Cardiology Diagnoses Abnormal EKG RBBB History of [place] (myocardial infarction) Tobacco abuse counseling Procedures Echo (TTE) complete (PRN contrast/bubble/strain/3D) WA ECHO TTHRC R-T 2D W/WOM-MODE COMPL SPEC&COLR D WA TTE W OR WO FOL JUDITH,Héctor Williamson MD [address] [place] [address] Phone: tel: fax: Referral ID Status Reason Start Date Expiration Date Visits Re quested Visits Authorized [id number] Closed 12/07/2024 12/07/2025 1 1 [facility] Narrative - Reported Review of Systems not supported for this document type No Review of Systems [facility]ed[facility] Work Phone: History of Past Illness [...] 28.0-28.9, adult Medical Established [facility]2018 Assess routine adult history and physical (18 - 64 yrs) Medical Established Patient with Karla [facility] 11/06/2018 Overweight Medical Established Patient with Karla [facility] 11/06/2018 Z68.28 - Body mass index (BM I) 28.0-28.9, adult Medical Established Patient with Karla [facility] 11/06/2018 Assess dysphagia Medical Established Patient with Karla [facility] 09/11/2018 Assess routine adult history and physical (18 - 64 yrs) Medical Established Patient with Karla [facility] 09/11/2018 Assess primary insomnia with sleep apnea Medical Established Patient with Karla [facility] 09/04/2018 Assess routine adult history and physical (18 - 64 yrs) Medical Established Patient with Karla [facility] 09/04/2018 Overweight Medical Established Patient with Karla [facility] 09/04/2018 Z68.29 - Body mass index (BM I) 29.0-29.9, adult Medical Established Patient with Karla Amber [facility] 09/04/2018 Assess vaginal candidiasis Medical Estab lished Patient with Karla Clark [facility] 07/31/2018 Diagnosis Right foot pain Pain in limb Diagnosis Abnormal mammogram of left breast Findings Encounter Date Occasional asthma CPS Med Review with Karla dinh [facility] 04/23/2019 Overweight CPS Med Review with Karla Clark [facility] 04/23/2019 Z68.27 - Body mass index (BM I) 27.0-27.9 adult CPS Med Review with Karla Clark [facility] 04/23/2019 Acute pharyngitis Medical Established Patient with Brandy Kelley [facility] 04/15/2019 Asthmatic bronchitis with ac [place] exacerbation Medical [facility]2019 Fagerstrom Score was two Medical Establi shed Patient with Brandy Kelley [facility] 04/15/2019 PHQ-9: total score was three 04/15/2019 Medical Established [facility]15[facility]2019 Body mass index Medical Established Patient with Karla Clark [facility] 03/05/2019 Diabetes Risk Test Score was three score Medical Established Patient with Karla Clark [facility] 03/05/2019 Overweight Medical Established Patient with Karla Clark [facility] 03/05/2019 Z68.28 - Body mass index (BM I) 28.0-28.9, adult Medical Established Patient with Karla Clark [facility] 12/22/2018 Assess routine adult history and physical (18 - 64 yrs) Medical Established Patient with Karla Clark [facility] 11/06/2018 Overweight Medical Established Patient with Karla Clark [facility] 11/06/2018 Z68.28 - Body mass index (BM I) 28.0-28.9, adult Medical Established Patient with Karla Clark [facility] 11/06/2018 Assess dysphagia Medical Established Patient with Karla Clark [facility] 09/11/2018 Assess routine adult history and physical (18 - 64 yrs) Medical Established Patient with Karla Clark [facility] 09/11/2018 Assess primary insomnia with sleep apnea Medical Established Patient with Karla Clark [facility] 09/04/2018 Assess routine adult history and physical (18 - 64 yrs) Medical Established Patient with Karla Clark [facility] 09/04/2018 Overweight Medical Established Patient with Karla Clark [facility] 09/04/2018 Z68.29 - Body mass index (BM I) 29.0-29.9, adult Medical Established Patient with Karla Clark [facility] 09/04/2018 Assess vaginal candidiasis Medical Estab lished Patient with Karla Clark [facility] 07/31/2018 Findings Encounter Date Occasional asthma CPS- Asthma Clinic- F/U with Karla Amber [facility] 06/05/2019 Overweight CPS- [facility] Clinic- F/U with Karla Amber [facility] 06/05/2019 Z68.27 - Body mass index (BM I) 27.0-27.9 adult CPS- [facility]hma Clinic- F/U with Karla Amber [facility] 06/05/2019 Occasional asthma CPS Med Review with Karla Sandra dinh [facility] 04/23/2019 Overweight CPS Med Review with Karla Amber [facility] 04/23/2019 Z68.27 - Body mass index (BM I) 27.0-27.9 adult CPS Med Review with Karla Amber [facility] 04/23/2019 Acute pharyngitis Medical Established Patient with Brandy Kelley [facility] 04/15/2019 Asthmatic bronchitis with ac [place] exacerbation Medical Established Patient with Brandy Serranoer [facility] 04/15/2019 Fagerstrom Score was two Medical Establi shed Patient with Brandy Serranoer [facility] 04/15/2019 PHQ-9: total score was three 04/15/2019 Medical Established Patient with Brandy Serranoer [facility] 04/15/2019 Body mass index Medical Established Patient with Karla Clark [facility] 03/05/2019 Diabetes Risk Test Score was three score Medical Established Patient with Karla Clark [facility] 03/05/2019 Overweight Medical Established Patient with Karla Floresen [facility] 03/05/2019 Z68.28 - Body mass index (BM I) 28.0-28.9, adult Medical Established Patient with Karla Clark [facility] 12/22/2018 Assess routine adult history and physical (18 - 64 yrs) Medical Established Patient with Karla Clark [facility] 11/06/2018 Overweight Medical Established Patient with Karla Clark [facility] 11/06/2018 Z68.28 - Body mass index (BM I) 28.0-28.9, adult Medical Established Patient with Karla Floresen [facility] 11/06/2018 Assess dysphagia Medical Established Patient with Karla Amber [facility] 09/11/2018 Assess routine adult history and physical (18 - 64 yrs) Medical Established Patient with Karla Floresen [facility] 09/11/2018 Assess primary insomnia with sleep apnea Medical Established Patient with Karla Amber [facility] 09/04/2018 Assess routine adult history and physical (18 - 64 yrs) Medical Established Patient with Karlajulius Clark CLINICAL PHARMACY TECHNICIAN 09/04/2018 Overweight Medical Established Patient with Karlajulius Floresen CLINICAL PHARMACY TECHNICIAN 09/04/2018 Z68.29 - Body mass index (BM I) 29.0-29.9, adult Medical Established Patient with Karlajulius Floresen CLINICAL PHARMACY TECHNICIAN 09/04/2018 Assess vaginal candidiasis Medical Estab lished Patient with Karlajulius Clark CLINICAL PHARMACY TECHNICIAN 07/31/2018 Findings Encounter Date Overweight Medical Established Patient with Karla Floresen CLINICAL PHARMACY TECHNICIAN 07/23/2019 Z68.27 - Body mass index (BM I) 27.0-27.9, adult Medical Established Patient with Karlajulius Clark CLINICAL PHARMACY TECHNICIAN 07/23/2019 Occasional asthma CPS- Asthma Clinic- F/U with Karla Amber [facility] 06/05/2019 Overweight CPS- [facility]- F[facility] Karla Amber [facility] [facility] Z68.27 - Body mass index (BM I) 27.0-27.9 adult CPS- Asthma Clinic- F/U with Karla Amber [facility] 06/05/2019 Occasional asthma CPS Med Review with Karla Sandra dinh [facility] 04/23/2019 Overweight CPS Med Review with Karla Amber [facility] 04/23/2019 Z68.27 - Body mass index (BM I) 27.0-27.9 adult CPS Med Review with Karla Amber [facility] 04/23/2019 Acute pharyngitis Medical Established Patient with Brandy Warren [facility] 04/15/2019 Asthmatic bronchitis with ac [place] exacerbation Medical Established Patient with Brandy Warren [facility] 04/15/2019 Fagerstrom Score was two Medical Establi shed Patient with Brandy Serranoer [facility] 04/15/2019 PHQ-9: total score was three 04/15/2019 Medical Established Patient with Brandy Warren [facility] 04/15/2019 Body mass index Medical Established Patient with Karla Clark [facility] 03/05/2019 Diabetes Risk Test Score was three score Medical Established Patient with Karla Amber [facility] 03/05/2019 Overweight Medical Established Patient with Karla Amber [facility] 03/05/2019 Z68.28 - Body mass index (BM I) 28.0-28.9, adult Medical Established Patient with Karlajulius Floresen [facility] 12/22/2018 Assess routine adult history and physical (18 - 64 yrs) Medical Established Patient with Karla Amber [facility] 11/06/2018 Overweight Medical Established Patient with Karla Amber [facility] 11/06/2018 Z68.28 - Body mass index (BM I) 28.0-28.9, adult Medical Established Patient with Karla Clark [facility] 11/06/2018 Assess dysphagia Medical Established Patient with Karla Clark [facility] 09/11/2018 Assess routine adult history and physical (18 - 64 yrs) Medical Established Patient with Karlajulius Clark [facility] 09/11/2018 Assess primary insomnia with sleep apnea Medical Established Patient with Karlajulius Clark [facility] 09/04/2018 Assess routine adult history and physical (18 - 64 yrs) Medical Established Patient with Karla Amber [facility] 09/04/2018 Overweight Medical Established Patient with Karla Amber [facility] 09/04/2018 Z68.29 - Body mass index (BM I) 29.0-29.9, adult Medical Established Patient with Karlajulius Clark [facility] 09/04/2018 Assess vaginal candidiasis Medical Estab lished Patient with Karlajulius Clark [facility] 07/31/2018 Findings Encounter Date Body mass index Medical Established Patient with Karlajulius Clark [facility] 02/26/2020 Overweight Medical Established Patient with Karlajulius Floresen [facility] 02/26/2020 Overweight Medical Established Patient with Karlajulius Floresen [facility] 07/23/2019 Z68.27 - Body mass index (BM I) 27.0-27.9, adult Medical Established Patient with Karla Floresen [facility] 07/23/2019 Occasional asthma CPS- Asthma Clinic- F/U with Karla Amber [facility] 06/05/2019 Overweight CPS- Asthma Clinic- F/U with Karla Amber [facility] 06/05/2019 Z68.27 - Body mass index (BM I) 27.0-27.9 adult CPS- Asthma Clinic- F/U with Karla Amber [facility] 06/05/2019 Occasional asthma CPS Med Review with Karla Sandra dinh [facility] 04/23/2019 Overweight CPS Med Review with Karla Amber [facility] 04/23/2019 Z68.27 - Body mass index (BM I) 27.0-27.9 adult CPS Med Review with Karla Amber [facility] 04/23/2019 Acute pharyngitis Medical Established Patient with Brandy Kelley [facility] 04/15/2019 Asthmatic bronchitis with ac [place] exacerbation Medical Established Patient with Brandy Warren [facility] 04/15/2019 Fagerstrom Score was two Medical Establi shed Patient with Brandy Kelley [facility] 04/15/2019 PHQ-9: total score was three 04/15/2019 Medical Established Patient with Brandy Kelley [facility] 04/15/2019 Body mass index Medical Established Patient with Karla Clark [facility] TE[facility] 03/05/2019 Diabetes Risk Test Score was three score Medical Established Patient with Karla Clark [facility] TECHNIC[facility] 03/05/2019 Overweight Medical Established Patient with Karlajulius Clark [facility] TECHNIC[facility] 03/05/2019 Z68.28 - Body mass index (BM I) 28.0-28.9, adult Medical Established Patient with Karla Clark [facility]Y TECHNICIAN 12/22/2018 Assess routine adult history and physical (18 - 64 yrs) Medical Established Patient with Karla Amber [facility] 11/06/2018 Overweight Medical Established Patient with Karla Amber [facility]ACY TECHNICIAN 11/06/2018 Z68.28 - Body mass index (BM I) 28.0-28.9, adult Medical Established Patient with Karla Clark [facility]Y TECHNIC[facility] 11/06/2018 Assess dysphagia Medical Established Patient with Karlajulius Floresen [facility]ARMACY TECHNICIAN 09/11/2018 Assess routine adult history and physical (18 - 64 yrs) Medical Established Patient with Karlajulius Clark [facility] PHARMACY TECHNICIAN 09/11/2018 Assess primary insomnia with sleep apnea Medical Established Patient with Karlajulius Clark [facility] PHARMACY TECHNICIAN 09/04/2018 Assess routine adult history and physical (18 - 64 yrs) Medical Established Patient with Karla Amber [facility] PHARMACY TECHNICIAN 09/04/2018 Overweight Medical Established Patient with Karla Floresen [facility] PHARMACY TECHNICIAN 09/04/2018 Z68.29 - Body mass index (BM I) 29.0-29.9, adult Medical Established Patient with Karla Clark CLINICAL PHARMACY TECHNICIAN 09/04/2018 Assess vaginal candidiasis Medical Estab lished Patient with Karlajulius Clark [facility] PHARMACY TECHNICIAN 07/31/2018 Findings Encounter Date Encounter for Immunization Nurse Visit with Gary Calrk CLINICAL PHARMACY TECHNICIAN 03/14/2020 Body mass index Medical Established Patient with Karlajulius Floresen CLINICAL PHARMACY TECHNICIAN 02/26/2020 Overweight Medical Established Patient with Karlajulius Floresen [facility]ARMACY TECHNICIAN 02/26/2020 Overweight Medical Established Patient with Karla Floresen [facility]ICAL PHARMACY TECHNICIAN 07/23/2019 Z68.27 - Body mass index (BM I) 27.0-27.9, adult Medical Established Patient with Karla Amber CLINICAL PHARMACY TECHNICIAN 07/23/2019 Occasional asthma CPS- Asthma Clinic- F/U with Karlajulius Clark [facility]ICAL PHARMACY TECHNICIAN 06/05/2019 Overweight CPS- Asthma Clinic- F/U with Karlajulius Clark [facility]INICAL PHARMACY TECHNICIAN 06/05/2019 Z68.27 - Body mass index (BM I) 27.0-27.9 adult CPS- Asthma Clinic- F/U with Karla Clark [facility]INICAL PHARMACY TECHNICIAN 06/05/2019 Occasional asthma CPS Med Review with Karla dinh [facility] 04/23/2019 Overweight CPS Med Review with Karla Clark [facility] 04/23/2019 Z68.27 - Body mass index (BM I) 27.0-27.9 adult CPS Med Review with Karla Clark CLINICAL PHARMACY TECHNICIAN 04/23/2019 Acute pharyngitis Medical Established Patient with Brandy Serranoer CLINICAL PHARMACY TECHNICIAN 04/15/2019 Asthmatic bronchitis with ac [place] exacerbation Medical Established Patient with Brandy Kelley [facility] PHARMACY TECHNICIAN 04/15/2019 [place]strom Score was two Medical Establi shed Patient with Brandy Kelley CLINICAL PHARMACY TECHNICIAN 04/15/2019 PHQ-9: total score was three 04/15/2019 Medical Established Patient with Brandy Kelley [facility] 04/15/2019 Body mass index Medical Established Patient with Karla Clark [facility] 03/05/2019 Diabetes Risk Test Score was three score Medical Established Patient with Karla Clark [facility] 03/05/2019 Overweight Medical Established Patient with Karlajulius Clark [facility] 03/05/2019 Z68.28 - Body mass index (BM I) 28.0-28.9, adult Medical Established Patient with Karlajulius Clark [facility] 12/22/2018 Assess routine adult history and physical (18 - 64 yrs) Medical Established Patient with Karla Clark [facility] 11/06/2018 Overweight Medical Established Patient with Karlajulius Clark [facility] 11/06/2018 Z68.28 - Body mass index (BM I) 28.0-28.9, adult Medical Established Patient with Karla Clark [facility] 11/06/2018 Assess dysphagia Medical Established Patient with Karla Clark [facility] 09/11/2018 Assess routine adult history and physical (18 - 64 yrs) Medical Established Patient with Karlajulius Clark [facility] 09/11/2018 Assess primary insomnia with sleep apnea Medical Established Patient with Karlajulius Clark [facility] 09/04/2018 Assess routine adult history and physical (18 - 64 yrs) Medical Established Patient with Karlajulius Clark [facility] 09/04/2018 Overweight Medical Established Patient with Karlajulius Clark [facility] 09/04/2018 Z68.29 - Body mass index (BM I) 29.0-29.9, adult Medical Established Patient with Karla Clark [facility] 09/04/2018 Assess vaginal candidiasis Medical Estab lished Patient with Karla Clark [facility] 07/31/2018 Diagnosis Abnormal mammogram Abnormal mammogram, unspecified Diagnosis Abnormal mammogram Abnormal mammogram, unspecified Findings Encounter Date Antiasthmatics [facility] Clinic-Ne w with Karlajulius Clark CLINICAL PHARMACY TECHNICIAN 05/06/2020 Assessment of tobacco use CPS Asthma Cli yash-New with Karlajulius Clark CLINICAL PHARMACY TECHNICIAN 05/06/2020 Body mass index CPS Asthma Clinic-Ne w with Karlajulius Clark CLINICAL PHARMACY TECHNICIAN 05/06/2020 Chronic obstructive pulmonary disease CP S Asthma Clinic-New with Karlajulius Clark [facility] 05/06/2020 Overweight CPS Asthma Clinic-Ne w with Karlajulius Clark [facility] 05/06/2020 Z11.4 - Encounter for screen ing for human immunodeficiency virus [HIV] CPS Asthma Clinic-New with Karlajulius Clark [facility] 05/06/2020 Diabetes Risk Test Score was three score 03/31/2020 Medical Established Patient with Karlajulius Clark [facility] 03/31/2020 Overweight Medical Established Patient with Karlajulius Clark [facility] 03/31/2020 Z68.25 - Body mass index [BM I] 25.0-25.9, adult Medical Established Patient with Karlajulius Clark [facility] 03/31/2020 Encounter for Immunization Nurse Visit with Gary Clark [facility] 03/14/2020 Body mass index Medical Established Patient with Karlajulius Clark CLINICAL PHARMACY TECHNICIAN 02/26/2020 Overweight Medical Established Patient with Karlajulius Clark [facility] 02/26/2020 Overweight Medical Established Patient with Karlajulius Clark [facility] 07/23/2019 Z68.27 - Body mass index (BM I) 27.0-27.9, adult Medical Established Patient with Karlajulius Clark CLINICAL PHARMACY TECHNICIAN 07/23/2019 Occasional asthma CPS- Asthma Clinic- F/U with Karla Clark CLINICAL PHARMACY TECHNICIAN 06/05/2019 Overweight CPS- Asthma Clinic- F/U with Karlajulius Clark [facility] 06/05/2019 Z68.27 - Body mass index (BM I) 27.0-27.9 adult CPS- Asthma Clinic- F/U with Karlajulius Clark [facility] 06/05/2019 Occasional asthma CPS Med Review with Karla Clark [facility] 04/23/2019 Overweight CPS Med Review with Karla Clark [facility] 04/23/2019 Z68.27 - Body mass index (BM I) 27.0-27.9 adult CPS Med Review with Karla Clark [facility] 04/23/2019 Acute pharyngitis Medical Established Patient with Brandy Kelley CLINICAL PHARMACY TECHNICIAN 04/15/2019 Asthmatic bronchitis with ac [place] exacerbation Medical Established Patient with Brandy Kelley CNP 04/15/2019 F[place]strom Score was two Medical Establi shed Patient with Brandy Kelley CLINICAL PHARMACY TECHNICIAN 04/15/2019 PHQ-9: total score was three 04/15/2019 Medical Established Patient with Brandy Kelley CLINICAL PHARMACY TECHNICIAN 04/15/2019 Body mass index Medical Established Patient with Karla Clark [facility] 03/05/2019 Diabetes Risk Test Score was three score Medical Established Patient with Karla Clark [facility] 03/05/2019 Overweight Medical Established Patient with Karlajulius Clark [facility] 03/05/2019 Z68.28 - Body mass index (BM I) 28.0-28.9, adult Medical Established Patient with Karla Clark [facility] 12/22/2018 Assess routine adult history and physical (18 - 64 yrs) Medical Established Patient with Karla Clark CLINICAL PHARMACY TECHNICIAN 11/06/2018 Overweight Medical Established Patient with Karlajulius Clark [facility] 11/06/2018 Z68.28 - Body mass index (BM I) 28.0-28.9, adult Medical Established Patient with Karla Clark [facility] 11/06/2018 Assess dysphagia Medical Established Patient with Karla Clark [facility] 09/11/2018 Assess routine adult history and physical (18 - 64 yrs) Medical Established Patient with Karlajulius Clark [facility] 09/11/2018 Assess primary insomnia with sleep apnea Medical Established Patient with Karla Clark [facility] 09/04/2018 Assess routine adult history and physical (18 - 64 yrs) Medical Established Patient with Karlajulius Clark [facility] 09/04/2018 Overweight Medical Established Patient with Karlajulius Clark [facility] 09/04/2018 Z68.29 - Body mass index (BM I) 29.0-29.9, adult Medical Established Patient with Karla Clark [facility] 09/04/2018 Assess vaginal candidiasis Medical Estab lished Patient with Karlajulius Clark CLINICAL PHARMACY TECHNICIAN 07/31/2018 Diagnosis Abnormal ultrasound of breast Other (abnormal) findings on radiological examination of breast Lesion of breast Unspecified breast disorder Diagnosis Hyperprolactinemia (HCC) Other and unspecified anterior pituitary hyperfunction Findings Encounter Date Acute pharyngitis Medical Established Patient with Brandy Kelley CLINICAL PHARMACY TECHNICIAN 04/15/2019 Asthmatic bronchitis with ac [place] exacerbation Medical Established Patient with Brandy Kelley CLINICAL PHARMACY TECHNICIAN 04/15/2019 Fagerstrom Score was two Medical Establi shed Patient with Brandy Serranoer CLINICAL PHARMACY TECHNICIAN 04/15/2019 PHQ-9: total score was three 04/15/2019 Medical Established Patient with Brandy Kelley CNP 04/15/2019 Body mass index Medical Established Patient with Karla Clark CLINICAL PHARMACY TECHNICIAN 03/05/2019 Diabetes Risk Test Score was three score Medical Established Patient with Karla Clark CLINICAL PHARMACY TECHNICIAN 03/05/2019 Overweight Medical Established Patient with Karlajulius Clark CLINICAL PHARMACY TECHNICIAN 03/05/2019 Z68.28 - Body mass index (BM I) 28.0-28.9, adult Medical Established Patient with Karla Clark CLINICAL PHARMACY TECHNICIAN 12/22/2018 Assess routine adult history and physical (18 - 64 yrs) Medical Established Patient with Karla Amber CLINICAL PHARMACY TECHNICIAN 11/06/2018 Overweight Medical Established Patient with Karla Amber CLINICAL PHARMACY TECHNICIAN 11/06/2018 Z68.28 - Body mass index (BM I) 28.0-28.9, adult Medical Established Patient with Karla Clark CLINICAL PHARMACY TECHNICIAN 11/06/2018 Assess dysphagia Medical Established Patient with Karlajulius Clark CLINICAL PHARMACY TECHNICIAN 09/11/2018 Assess routine adult history and physical (18 - 64 yrs) Medical Established Patient with Karlajulius Clark [facility] 09/11/2018 Assess primary insomnia with sleep apnea Medical Established Patient with Karlajulius Clark CLINICAL PHARMACY TECHNICIAN 09/04/2018 Assess routine adult history and physical (18 - 64 yrs) Medical Established Patient with Karla Amber CLINICAL PHARMACY TECHNICIAN 09/04/2018 Overweight Medical Established Patient with Karla Clark CLINICAL PHARMACY TECHNICIAN 09/04/2018 Z68.29 - Body mass index (BM I) 29.0-29.9, adult Medical Established Patient with Karlajulius Clark CLINICAL PHARMACY TECHNICIAN 09/04/2018 Assess vaginal candidiasis Medical Estab lished Patient with Karla Clark CLINICAL PHARMACY TECHNICIAN 07/31/2018 Findings Encounter Date Z68.24 - Body mass index [BM I] 24.0-24.9, adult Medical Established Patient with Karla Clark CLINICAL PHARMACY TECHNICIAN 06/17/2020 Overweight Medical Established Patient with Karla Clark CLINICAL PHARMACY TECHNICIAN 06/06/2020 Z68.25 - Body mass index [BM I] 25.0-25.9, adult Medical Established Patient with Karla Clark CLINICAL PHARMACY TECHNICIAN 06/06/2020 Antiasthmatics CPS Asthma Clinic-Ne w with Karla Amber [facility] 05/06/2020 Assessment of tobacco use CPS Asthma Cli yash-New with Karlajulius Clark [facility] 05/06/2020 Body mass index CPS Asthma Clinic-Ne w with Karlajulius Clark [facility] 05/06/2020 Chronic obstructive pulmonary disease CP S Asthma Clinic-New with Karlajulius Clark [facility] 05/06/2020 Overweight CPS Asthma Clinic-Ne w with Karla Amber [facility] 05/06/2020 Z11.4 - Encounter for screen ing for human immunodeficiency virus [HIV] CPS Asthma Clinic-New with Karla Floresen [facility] 05/06/2020 Diabetes Risk Test Score was three score 03/31/2020 Medical Established Patient with Karla Amber [facility] 03/31/2020 Overweight Medical Established Patient with Karla Amber [facility] 03/31/2020 Z68.25 - Body mass index [BM I] 25.0-25.9, adult Medical Established Patient with Karla Floresen [facility] 03/31/2020 Encounter for Immunization Nurse Visit with Gary segundo Amber [facility] 03/14/2020 Body mass index Medical Established Patient with Karla Amber [facility] 02/26/2020 Overweight Medical Established Patient with Akrla Amber [facility] 02/26/2020 Overweight Medical Established Patient with Karla Amber [facility] 07/23/2019 Z68.27 - Body mass index (BM I) 27.0-27.9, adult Medical Established Patient with Karla Amber [facility] 07/23/2019 Occasional asthma CPS- Asthma Clinic- F/U with Karla Amber [facility] 06/05/2019 Overweight CPS- Asthma Clinic- F/U with Karla Amber [facility] 06/05/2019 Z68.27 - Body mass index (BM I) 27.0-27.9 adult CPS- Asthma Clinic- F/U with Karla Amber [facility] 06/05/2019 Occasional asthma CPS Med Review with Karla Amber [facility] 04/23/2019 Overweight CPS Med Review with Karla Amber [facility] 04/23/2019 Z68.27 - Body mass index (BM I) 27.0-27.9 adult CPS Med Review with Karla Amber [facility] 04/23/2019 Acute pharyngitis Medical Established Patient with Brandy Kelley [facility] 04/15/2019 Asthmatic bronchitis with ac [place] exacerbation Medical Established Patient with Brandy Kelley [facility] 04/15/2019 F[place]strom Score was two Medical Establi shed Patient with Brandy Kelley [facility] 04/15/2019 PHQ-9: total score was three 04/15/2019 Medical Established Patient with Brandy Kelley [facility] 04/15/2019 Body mass index Medical Established Patient with Karlajulius Clark [facility] 03/05/2019 Diabetes Risk Test Score was three score Medical Established Patient with Karlajulius Clark [facility] 03/05/2019 Overweight Medical Established Patient with Karla Amber CLINICAL PHARMACY TECHNICIAN 03/05/2019 Z68.28 - Body mass index (BM I) 28.0-28.9, adult Medical Established Patient with Karla Amber CLINICAL PHARMACY TECHNICIAN 12/22/2018 Assess routine adult history and physical (18 - 64 yrs) Medical Established Patient with Karla Amber CLINICAL PHARMACY TECHNICIAN 11/06/2018 Overweight Medical Established Patient with Karla Amber CLINICAL PHARMACY TECHNICIAN 11/06/2018 Z68.28 - Body mass index (BM I) 28.0-28.9, adult Medical Established Patient with Karla Amber CLINICAL PHARMACY TECHNICIAN 11/06/2018 Assess dysphagia Medical Established Patient with Karla Amber CLINICAL PHARMACY TECHNICIAN 09/11/2018 Assess routine adult history and physical (18 - 64 yrs) Medical Established Patient with Karla Abmer CLINICAL PHARMACY TECHNICIAN 09/11/2018 Assess primary insomnia with sleep apnea Medical Established Patient with Karla Amber CLINICAL PHARMACY TECHNICIAN 09/04/2018 Assess routine adult history and physical (18 - 64 yrs) Medical Established Patient with Karla Amber CLINICAL PHARMACY TECHNICIAN 09/04/2018 Overweight Medical Established Patient with Karla Amber CLINICAL PHARMACY TECHNICIAN 09/04/2018 Z68.29 - Body mass index (BM I) 29.0-29.9, adult Medical Established Patient with Karla Amber CLINICAL PHARMACY TECHNICIAN 09/04/2018 Assess vaginal candidiasis Medical Estab lished Patient with Karla Amber CLINICAL PHARMACY TECHNICIAN 07/31/2018 Findings Encounter Date Diabetes Risk Test Score was three score 03/31/2020 Medical Established Patient with Karla Amber CLINICAL PHARMACY TECHNICIAN 03/31/2020 Overweight Medical Established Patient with Karla Amber CLINICAL PHARMACY TECHNICIAN 03/31/2020 Z68.25 - Body mass index [BM I] 25.0-25.9, adult Medical Established Patient with Karla Amber CLINICAL PHARMACY TECHNICIAN 03/31/2020 Encounter for Immunization Nurse Visit with GaryNicolasa CLINICAL PHARMACY TECHNICIAN 03/14/2020 Body mass index Medical Established Patient with Karla Amber CLINICAL PHARMACY TECHNICIAN 02/26/2020 Overweight Medical Established Patient with Karla Amber CLINICAL PHARMACY TECHNICIAN 02/26/2020 Overweight Medical Established Patient with Karla Amber CLINICAL PHARMACY TECHNICIAN 07/23/2019 Z68.27 - Body mass index (BM I) 27.0-27.9, adult Medical Established Patient with Karla Amber CLINICAL PHARMACY TECHNICIAN 07/23/2019 Occasional asthma CPS- Asthma Clinic- F/U with Karlajulius Clark CLINICAL PHARMACY TECHNICIAN 06/05/2019 Overweight CPS- Asthma Clinic- F/U with Karla Amber [facility] 06/05/2019 Z68.27 - Body mass index (BM I) 27.0-27.9 adult CPS- Asthma Clinic- F/U with Karla Floresen [facility] 06/05/2019 Occasional asthma CPS Med Review with Karla dinh [facility] 04/23/2019 Overweight CPS Med Review with Karla Clark [facility] 04/23/2019 Z68.27 - Body mass index (BM I) 27.0-27.9 adult CPS Med Review with Karla Floresen [facility] 04/23/2019 Acute pharyngitis [facility] Asthmatic bronchitis with ac [place] exacerbation Medical [facility]/15[facility]2019 F[place]strom Score was two Medical Establi shed Patient with Brandy Kelley [facility] 04/15/2019 PHQ-9: total score was three 04/15/2019 Medical Establ[facility]15[facility] Body mass index Medical Established Patient with Karla Clark [facility] 03/05/2019 Diabetes Risk Test Score was three score Medical Established Patient with Karla Clark [facility] 03/05/2019 Overweight Medical Established Patient with Karla Clark [facility] 03/05/2019 Z68.28 - Body mass index (BM I) 28.0-28.9, adult Medical Established Patient with Karla Clark [facility] 12/22/2018 Assess routine adult history and physical (18 - 64 yrs) Medical Established Patient with Karla Clark [facility] 11/06/2018 Overweight Medical Established Patient with Karla Clark [facility] 11/06/2018 Z68.28 - Body mass index (BM I) 28.0-28.9, adult Medical Established Patient with Karla Clark [facility] 11/06/2018 Assess dysphagia Medical Established Patient with Karla Clark [facility] 09/11/2018 Assess routine adult history and physical (18 - 64 yrs) Medical Established Patient with Karla Clark [facility] 09/11/2018 Assess primary insomnia with sleep apnea Medical Established Patient with Karla Clark [facility] 09/04/2018 Assess routine adult history and physical (18 - 64 yrs) Medical [facility]2018 Z68.29 - Body mass index (BM I) 29.0-29.9, adult Medical Established Patient with Karla Clark [facility] 09/04/2018 Assess vaginal candidiasis Medical Estab lished Patient with Karlajulius Clark CLINICAL PHARMACY TECHNICIAN 07/31/2018 Diagnosis Duct ectasia of breast, left Findings Encounter Date Body mass index Medical Established Patient with Karlajulius Clark CLINICAL PHARMACY TECHNICIAN 03/05/2019 Diabetes Risk Test Score was three score Medical Established Patient with Karla Amber CLINICAL PHARMACY TECHNICIAN 03/05/2019 Overweight Medical Established Patient with Karla Amber CLINICAL PHARMACY TECHNICIAN 03/05/2019 Z68.28 - Body mass index (BM I) 28.0-28.9, adult Medical Established Patient with Karla Amber CLINICAL PHARMACY TECHNICIAN 12/22/2018 Assess routine adult history and physical (18 - 64 yrs) Medical Established Patient with Karla Amber CLINICAL PHARMACY TECHNICIAN 11/06/2018 Overweight Medical Established Patient with Karla Amber CLINICAL PHARMACY TECHNICIAN 11/06/2018 Z68.28 - Body mass index (BM I) 28.0-28.9, adult Medical Established Patient with Karla Amber CLINICAL PHARMACY TECHNICIAN 11/06/2018 Assess dysphagia Medical Established Patient with Karla Amber CLINICAL PHARMACY TECHNICIAN 09/11/2018 Assess routine adult history and physical (18 - 64 yrs) Medical Established Patient with Karla Amber CLINICAL PHARMACY TECHNICIAN 09/11/2018 Assess primary insomnia with sleep apnea Medical Established Patient with Karla Amber CLINICAL PHARMACY TECHNICIAN 09/04/2018 Assess routine adult history and physical (18 - 64 yrs) Medical Established Patient with Karla Amber CLINICAL PHARMACY TECHNICIAN 09/04/2018 Overweight Medical Established Patient with Karla Amber CLINICAL PHARMACY TECHNICIAN 09/04/2018 Z68.29 - Body mass index (BM I) 29.0-29.9, adult Medical Established Patient with Karla Amber CLINICAL PHARMACY TECHNICIAN 09/04/2018 Assess vaginal candidiasis Medical Estab lished Patient with Karlajulius Clark CLINICAL PHARMACY TECHNICIAN 07/31/2018 Instructions Instructions not supported for this [...] 07/31/2018 Last Documented On 9 2:12PM ; [facility] Description Last Updated No significant medical history in nuclea r family 07/31/2018 Last Documented On 9 2:12PM ; [facility] Description Last Updated No significant medical history in nuclea r family 07/31/2018 Last Documented On 9 2:12PM ; [facility] Description Last Updated No significant medical history in nuclea r family 07/31/2018 Last Documented On 9 2:12PM ; [facility] Relationship Condition Age at Onset Recorded Date/T aviva Not Specified Intellectual disability Unknown father History of coronary artery stent placement Unknown Coronary artery disease Unknown Not Specified Recurrent cerebrovas cular accidents (CVAs) Unknown brother Congestive heart failure Unknown Muscular dystrophy Unknown Description Last Updated No significant medical history in nuclea r family 07/31/2018 Last Documented On 9 2:12PM ; [facility] Description Last Updated Maternal history of breast neoplasm 02/02 Last Documented On 3 9:51AM ; [facility] No significant medical history in nuclea r family 07/31/2018 Last Documented On 9 2:12PM ; [facility] Relationship Condition Age at Onset Recorded Date/T aviva father History of coronary artery stent placement Unknown Coronary artery disease Unknown Not Specified Recurrent cerebrovas cular accidents (CVAs) Unknown brother Congestive heart failure Unknown Muscular dystrophy Unknown Description Last Updated Maternal history of breast neoplasm 02/02 Last Documented On 3 9:51AM ; [facility] No significant medical history in nuclea r family 07/31/2018 Last Documented On 9 2:12PM ; [facility] Relationship Condition Age at Onset Recorded Date/T aviva father History of coronary artery stent placement Unknown Coronary artery disease Unknown Not Specified Recurrent cerebrovas cular accidents (CVAs) Unknown brother Congestive heart failure Unknown Muscular dystrophy Unknown brother Unknown Heart disease Unknown Not Specified Malignant neoplasm Unknown Description Last Updated Maternal history of breast neoplasm 02/02 Last Documented On 3 9:51AM ; [facility] No significant medical history in nuclea r family 07/31/2018 Last Documented On 9 2:12PM ; [facility] Description Last Updated Maternal history of breast neoplasm 02/02 Last Documented On 3 9:51AM ; [facility] No significant medical history in nuclea r family 07/31/2018 Last Documented On 9 2:12PM ; [facility] Description Last Updated Maternal history of breast neoplasm 02/02 Last Documented On 3 9:51AM ; [facility] No significant medical history in nuclea r family 07/31/2018 Last Documented On 9 2:12PM ; [facility] Relationship Condition Age at Onset Recorded Date/T aviva father History of coronary artery stent placement Unknown Coronary artery disease Unknown mother Recurrent cerebrovas cular accidents (CVAs) Unknown brother Congestive heart failure Unknown Muscular dystrophy Unknown brother Unknown Heart disease Unknown mother Malignant neoplasm Unknown Description Last Updated Maternal history of breast neoplasm 02/02 Last Documented On 3 9:51AM ; [facility] No significant medical history in nuclea r family 07/31/2018 Last Documented On 9 2:12PM ; [facility] Description Last Updated Maternal history of breast neoplasm 02/02 Last Documented On 3 9:51AM ; [facility] No significant medical history in nuclea r family 07/31/2018 Last Documented On 9 2:12PM ; [facility] Description Last Updated Maternal history of breast neoplasm 02/02 Last Documented On 3 9:51AM ; [facility] No significant medical history in nuclea r family 07/31/2018 Last Documented On 9 2:12PM ; [facility] Review of System Review of Systems [...] Documents on File Type Date Recorded Patient Management Accountant Expl anation ACP-Power of Medical Billing Associate 08/01/2021 10:21 AM Date Activated Date Inactivated Comments 03/23/2013 12:03 AM 03/23/2013 7:42 PM Documents on File Type Date Recorded Patient Management Accountant Expl anation ACP-Power of Medical Billing Associate 08/01/2021 10:21 AM Latest Code Status on File Code Status Date Activated Date Inactivated Comments Full Code 03/23/2013 12:03 AM 03/23/2013 7:42 PM Documents on File Type Date Recorded Patient Management Accountant Expl anation Advance Directives and Living Will Power of Medical Billing Associate Latest Code Status on File Code Status Date Activated Date Inactivated Comments Full Code 03/23/2013 12:03 AM 03/23/2013 7:42 PM Documents on File Type Date Recorded Patient Management Accountant Expl anation Advance Directives and Living Will Power of Medical Billing Associate Documents on File Type Date Recorded Patient Management Accountant Expl anation ACP-Advance Directive ACP-Power of Medical Billing Associate Documents on File Type Date Recorded Patient Management Accountant Expl anation ACP-Advance Directive ACP-Power of Medical Billing Associate Documents on File Type Date Recorded Patient Management Accountant Expl anation ACP-Advance Directive ACP-Power of Medical Billing Associate ACP-Power of Medical Billing Associate 08/01/2021 10:21 AM Documents on File Type Date Recorded Patient Management Accountant Expl anation ACP-Advance Directive ACP-Power of Medical Billing Associate ACP-Power of Medical Billing Associate 08/01/2021 10:21 AM Directive Pat Aware Third [...] common and can be relieved with an zgwk-hye-qglxmmk (non-aspirin) analgesic such as Tylenol. Please follow [...] common and can be relieved with an lrkx-dph-vfmheln (non-aspirin) analgesic such as Tylenol. Pleasefollow the [...] HC US BREAST COMP Billy Ojeda MD [address] [place] [address] [place] [address] [facility] Ultrasound [address] [place] [address] Status Reason Specialty Diagnoses / Procedures Referre d By Contact Referred To Contact Closed Radiology Diagnoses Abnormal mammogram Procedures LINDA DIGITAL DIAGNOSTIC W OR WO CAD LEFT Billy Ojeda MD [address] [place] [address] [address] [place] [address] Status Reason Specialty Diagnoses / Procedures Referre d By Contact Referred To Contact Closed Radiology Diagnoses Hyperprolactinemia (HCC) Procedures MRI BRAIN W WO CONTRAST Karla Clark, METAL BONDING PRESS OPERATOR - CLINICAL PHARMACY TECHNICIAN [address] [place] [address] Status Reason Specialty Diagnoses / Procedures Referre d By Contact Referred To Contact Open Diagnoses Duct ectasia of breast, left Procedures US BREASt COMPLETE LEFT HC US BREAST COMP She Spencer APRN - CNM [address] [id number] Status Reason Specialty Diagnoses / Procedures Referre d By Contact Referred To Contact Closed Radiology Diagnoses History of breast biopsy Procedures LINDA ERYN DIGITAL DIAGNOSTIC BILATERAL She Spencer APRN - CNAlexey [address] [place] [address] [address] [place] [address] [facility] [address] [place] [address] Specialty Diagnoses / Procedures Referred By Contac t Referred To Contact Radiology Diagnoses Breast lump on right side at 4 o'clock position Procedures MRI BREAST BILATERAL W CONTRAST She Spencer APRN - CNAlexey [address] [place] [address] Dr [address] [place] [address] Referral ID Status Reason Start Date Expiration Date Visits Re quested Visits Authorized [id number] Closed 07/19/2021 07/19/2022 1 1 Specialty Diagnoses / Procedures Referred By Conthiral t Referred To Contact Cardiology Diagnoses Pre-operative clearance Abnormal EKG History of NH (myocardial infarction) Procedures ECHO Complete 2D W Doppler W Color Héctor Turner MD [address] [place] [address] Referral ID Status Reason Start Date Expiration Date Visits Re quested Visits Authorized [id number] Closed 01/01/2022 01/01/2023 1 1 Summary Purpose [...] Visit Acute psychosis Chronic schizophrenia Chief Complaint [facility] See order Reason for Visit Acute psychosis Chronic schizophrenia Schizoaffective disorder Chief Complaint [facility] Reason for Visit MYESHA (acute kidney in jury) Schizoaffective disorder Chief Complaint [facility] Reason for Visit Acute psychosis MYESHA (acute [...] EACH ADDL LESION LEFT Billy Ojeda MD [address] [place] [address] Status Reason Specialty Diagnoses / Procedures Referre d By Contact Referred To Contact Closed Radiology Diagnoses Abnormal mammogram Procedures US BREAST COMPLETE LEFT HC US BREAST COMP Billy Ojeda MD [address] [place] [address] [facility] Ultrasound [address] [place] [address] Status Reason Specialty Diagnoses / Procedures Referred By Contact Referred To Contact Pending Review Radiology Diagnoses Abnormal mammogram Procedures LINDA ERYN DIGITAL DIAGNOSTIC BILATERAL LINDA DIGITAL DIAGNOSTIC W OR WO CAD LEFT HC MAMMO DGX UNILATERAL INCL CAD IF PERF Billy Ojeda MD [address] [place] [address] [place] [address] [facility] [address] [place] [address] Status Reason Specialty Diagnoses / Procedures Referre d By Contact Referred To Contact Open Radiology Diagnoses Abnormal ultrasound of breast Lesion of breast Procedures US BREAST BIOPSY W LOC DEVICE 1ST LESION LEFT US GUIDED LEFT BREAST BIOPSY Billy Ojeda MD [address] [place] [address] [address] [place] [address] [facility] Ultrasound [address] [place] [address] Status Reason Specialty Diagnoses / Procedures Referre d By Contact Referred To Contact Closed Radiology Diagnoses Abnormal mammogram Procedures LINDA DIGITAL DIAGNOSTIC W OR WO CAD LEFT Billy Ojeda MD [address] [place] [address] [address] [place] [address] Status Reason Specialty Diagnoses / Procedures Referred By Contact Referred To Contact Pending Review Radiology Diagnoses Hyperprolactinemia Procedures HC MRI-BRAIN WO & W CONTRAST Karla Clark, METAL BONDING PRESS OPERATOR - CLINICAL PHARMACY TECHNICIAN [address] [place] [address] [facility] Mri [address] [place] [address] Status Reason Specialty Diagnoses / Procedures Referre d By Contact Referred To Contact Open Diagnoses Duct ectasia of breast, left Procedures US BREASt COMPLETE LEFT HC US BREAST COMP She Spencer APRN - CNM [address] [id number] Status Reason Specialty Diagnoses / Procedures Referre d By Contact Referred To Contact Closed Radiology Diagnoses History of breast biopsy Procedures LINDA ERYN DIGITAL DIAGNOSTIC BILATERAL She Spencer APRN - CNAlexey [address] [place] [address] [address] [place] [address] [facility] [address] [place] [address] Specialty Diagnoses / Procedures Referred By Contac t Referred To Contact Radiology Diagnoses Breast lump on right side at 4 o'clock position Procedures MRI BREAST BILATERAL W CONTRAST She Spencer APRN - CNAlexey [address] [place] [address] Dr [address] [place] [address] Referral ID Status Reason Start Date Expiration Date Visits Re quested Visits Authorized [id number] Closed 07/19/2021 07/19/2022 1 1 Specialty Diagnoses / Procedures Referred By Contac t Referred To Contact Cardiology Diagnoses Pre-operative clearance Abnormal EKG History of NH (myocardial infarction) Procedures ECHO Complete 2D W Doppler W Color Héctor Turner MD [address] [place] [address] Referral ID Status Reason Start Date Expiration Date Visits Re quested Visits Authorized [id number] Closed 01/01/2022 01/01/2023 1 1 Specialty Diagnoses / Procedures Referred By Contac t Referred To Contact Dermatology Diagnoses neoplasm of uncertain behavior of skin Karla Clark MD [address] [place] [address] Dakota Mack MD [address] [place] [address] Referral ID Status Reason Start Date Expiration Date Visits Re quested Visits Authorized [id number] Closed 06/13/2023 12/10/2023 1 1 Reason Comments [...] she had an PT screening there at [facility]; she replied she is going to look into and contact me back re: OP PT. Reason Comments Altered Mental Status Reason Comments Needs transport to [facility] Medical History (unrecognize d section and content) Description Patient gave verbal consent for [employer] [facility] 08/31/2019 History of abnormal electrocardiogram History of asthma 07/31/2018 History of cardiovascular disorder 07/31 History of respiratory disorder 07/31/19 19 History of bipolar disorder NOS 07/31/19 19 History of depression 07/31/2018 History of psychiatric disorders 019 Description Last Updated A recent immunization for flu 05/06/2020 Patient gave verbal consent for [employer] [facility] 08/31/2019 History of abnormal electrocardiogram History of [...] Member Role Status Dates Karla Clark APRN TARRING MACHINE OPERATOR-C Primary Care Provider Activ e Start: November [...] Role Status Dates Karla M Amber , METAL BONDING PRESS OPERATOR TARRING MACHINE OPERATOR-C Primary Care Provider Activ e Team Status: Active Member Role Status Dates Karla Clark , RODNEY TARRING MACHINE OPERATOR-C Primary Care Provider Activ e Monster Davis MD Attending Provider Active Team Status: Inactive Member Role Status Dates Karla Clark , METAL BONDING PRESS OPERATOR TARRING MACHINE OPERATOR-C Primary Care Provider Activ e Emory Adame , DO Attending Provider Active Reimbursement Rep Relationship Specialty Start Date End Date Karla Clark, METAL BONDING PRESS OPERATOR - CLINICAL PHARMACY TECHNICIAN [address] [place] [address] PCP - General 02/23/16 Reimbursement Rep Relationship Specialty Start Date End Date Karla Clark, METAL BONDING PRESS OPERATOR - CLINICAL PHARMACY TECHNICIAN [address] [place] [address] PCP - General 02/23/16 Reimbursement Rep Relationship Specialty Start Date End Date Karla Clark, METAL BONDING PRESS OPERATOR - CLINICAL PHARMACY TECHNICIAN [address] [place] [address] PCP - General 02/23/16 Reimbursement Rep Relationship Specialty Start Date End Date Karla Clark, METAL BONDING PRESS OPERATOR - CLINICAL PHARMACY TECHNICIAN [address] [place] [address] PCP - General 02/23/16 Team Status: Inactive Member Role Status Dates Emory Adame , Attending Provider Active Team Status: Inactive Member Role Status Dates Emory Adame DO Attending Provider Active Karla Clark , RODNEY TARRING MACHINE OPERATOR-C Primary Care Provider Activ e Team Status: Inactive Member Role Status Dates Emory Adame DO Attending Provider Active PHYSICIAN NO FAMILY Primary Care Provider Active Team Status: Inactive Member Role Status Dates Karla Clark , RODNEY TARRING MACHINE OPERATOR-C Primary Care Provider Activ e Zak Reza [...] Lisseth Galvan RN Other Provider Active Ragini Olamide , RN Other Provider Active Ana Alexey Milan , METAL BONDING PRESS OPERATOR Other Provider Active Barbie Choi , [...] MD Other Provider Active Roseline Aguilar , TARRING MACHINE OPERATOR-C Other Provider Active Jaswinder Robert MD Other Provider Active Titus Christianson MD Other Provider Active Kody Leon MD Other Provider Active Gibson Cid MD Other Provider Active Yolanda Davila , DO Other Provider Active Jeancarlos Bonilla , DO Other Provider Active Scottie Quinn , DO Other Provider Active Maddy [place] , METAL BONDING PRESS OPERATOR Other Provider Active Jose Huang , DO Other Provider Active Naga Lundberg MD Other Provider Active Leny Spencer , METAL BONDING PRESS OPERATOR Other Provider Active Winnie Jenkins , METAL BONDING PRESS OPERATOR Other Provider Active Greg Ocampo MD Other Provider Active Loy Rivers MD Other Provider Active Ludwig Amador , DO Other Provider Active Pinky Jewell METAL BONDING PRESS OPERATOR Other Provider Active Alice Grimaldo RN [...] Other Provider Active Ana Alexey Milan , METAL BONDING PRESS OPERATOR Other Provider Active Barbie Choi , DO Other Provider Active Braden Dill MD Other Provider Active Chandu Villafana , DO Other Provider Active Thomas Mendez MD Other Provider Active Kathrine Naik MD Other Provider Active Mariana Pryor , METAL BONDING PRESS OPERATOR Other Provider Active Angel Haley MD Other Provider Active Link Salazar MD Other Provider Active Rosa Lowe MD Other Provider Active Brad Peng MD Other Provider Active Khalif Pettit , DO Other Provider Active Sherif Campbell MD Other Provider Active Francisco Keene MD Other Provider Active Roseline Aguilar , TARRING MACHINE OPERATOR-C Other Provider Active Jaswinder Robert MD Other Provider Active Titus Christianson MD Other Provider Active Kody Leon MD Other Provider Active Gibson Cid MD Other Provider Active Yolanda Davila , DO Other Provider Active Jeancarlos Bonilla , DO Other Provider Active Scottie Quinn , DO Other Provider Active Maddy [place] , METAL BONDING PRESS OPERATOR Other Provider Active Jose Huang , DO Other Provider Active Naga Lundberg MD Other Provider Active Leny Spencer , METAL BONDING PRESS OPERATOR Other Provider Active Winnie Jenkins , METAL BONDING PRESS OPERATOR Other Provider Active Greg Ocampo MD Other Provider Active Loy Rivers MD Other Provider Active Ludwig Amador , DO Other Provider Active Pinky Jewell , METAL BONDING PRESS OPERATOR Other Provider Active London Mccann , [...] RN Other Provider Active Ana Milan , METAL BONDING PRESS OPERATOR Other Provider Active Barbie Chio , DO Other Provider Active Braden Dill MD Other Provider Active Chandu Villafana , DO Other Provider Active Thomas Mendez MD Other Provider Active Kathrine Naik MD Other Provider Active Mariana Pryor , METAL BONDING PRESS OPERATOR Other Provider Active Angel Haley MD [...] DO Other Provider Active Maddy [place] , METAL BONDING PRESS OPERATOR Other Provider Active Jose Huang , DO Other Provider Active Naga Lundberg MD Other Provider Active Leny Spencer , METAL BONDING PRESS OPERATOR Other Provider Active Winnie Jenkins , METAL BONDING PRESS OPERATOR Other Provider Active Greg Ocampo MD Other Provider Active Loy Rivers MD Other Provider Active Ludwig Amador , DO Other Provider Active Pinky Jewell , METAL BONDING PRESS OPERATOR Other Provider Active Alice Grimaldo RN Other Provider Active Team Status: Inactive Member Role Status Dates NON STAFF Primary Care Provider Active Start: August 20, 2023 End: August 20, 2023 Alannah James , Attending Provider Active S tart: August 20, 2023 End: August 20, 2023 Reimbursement Rep Relationship Specialty Start Date End Date Deepti Britt MD [address] [facility] [address] [place] [address] Referring Ent - Otolaryngology 01/25/23 Reimbursement Rep Relationship Specialty Start Date End Date Deepti rBitt MD [address] [facility] [address] [place] [address] Referring Ent - Otolaryngology 01/25/23 Team Status: [...] Other Provider Active Start: December 18, 2023 Reimbursement Rep Relationship Specialty Start Date End Date Kentrell Hurley DO [address] [facility] [address] [place] [address] PCP - General Family Medicine 02/18/24 Karla Clark MD [address] [place] [address] Referring Physician Family Medicine 08/28/23 Reimbursement Rep Relationship Specialty Start Date End Date Karla Clark APRN - CLINICAL PHARMACY TECHNICIAN [address] [place] [address] PCP - General 02/23/16 Reimbursement Rep Relationship Specialty Start Date End Date Karla Clark APRN - CLINICAL PHARMACY TECHNICIAN [address] [place] [address] PCP - General 02/23/16 Reimbursement Rep Relationship Specialty Start Date End Date Kentrell Hurley DO [address] [facility] [address] [place] [address] PCP - General Family Medicine 02/18/24 Karla Clark MD [address] [place] [address] Referring Physician Family Medicine 08/28/23 Reimbursement Rep Relationship Specialty Start Date End Date Kentrell Hurley DO [address] [facility] [address] [place] [address] PCP - General Family Medicine 02/18/24 Karla Clark MD [address] [place] [address] Referring Physician Family Medicine 08/28/23 Reimbursement Rep Relationship Specialty Start Date End Date Kentrell Hurley DO [address] [address] PCP - General Family Medicine 02/18/24 Karla Clark MD [address] [place] [address] Referring Physician Family Medicine 08/28/23 Reimbursement Rep Relationship Specialty Start Date End Date Kentrell Hurley DO [address] [address] PCP - General Family Medicine 02/18/24 Karla Clark MD [address] [place] [address] Referring Physician Family Medicine 08/28/23 Reimbursement Rep Relationship Specialty Start Date End Date Moe Avila DO [address] [place] [address] PCP - General Family Medicine 12/17/24 Team Status: Inactive Member Role Status Dates NON STAFF Primary Care Provider Active Start: February 08, 2025 End: February 08, 2025 Emory Adame DO Attending Provider Active S tart: February 08, 2025 End: February 08, 2025 INFORMATION SOURCE (unrecogn ized section and content) DATE CREATED AUTHOR 10/26/2021 [facility] DATE CREATED AUTHOR AUTHOR'S ORGANIZ ATION 11/10/2022 [facility] DATE CREATED AUTHOR AUTHOR'S ORGANIZ ATION 06/05/2023 [facility] DATE CREATED AUTHOR AUTHOR'S ORGANIZ ATION 09/29/2023 [facility] DATE CREATED AUTHOR AUTHOR'S ORGANIZ ATION 02/27/2024 [facility] DATE CREATED AUTHOR AUTHOR'S ORGANIZ ATION 06/14/2024 [facility] DATE CREATED AUTHOR AUTHOR'S ORGANIZ ATION 10/27/2024 [facility] DATE CREATED AUTHOR AUTHOR'S ORGANIZ ATION 12/11/2024 [facility] DATE CREATED AUTHOR AUTHOR'S ORGANIZ ATION 12/20/2024 [facility] Goals (unrecognized section and content) Goals may be documented in a n alternate section Source Comments (unrecognize d section and content) In the event this informatio n is protected by the Federal Confidentiality of Alcohol and Drug Abuse Patient Records regulations: The Federal rules restrict any use of the information to criminally investigate or prosecute any alcohol or drug abuse patient.[facility] the event this information is protected by the Federal Confidentiality of Alcohol and Drug Abuse Patient Records regulations: The Federal rules restrict any use of the information to criminally investigate or prosecute any alcohol or drug abuse patient.[facility] Scheduled Active and Recently Administ ered Medications [...] BE BASED ON THE PRIMARY CLINICAL RECORDS. [facility]. provides no warranty or guarantee of the accuracy or completeness of information in this document.
[2025-02-18 14:48] LABS: Glucose Urine UA NEGATIVE (NEGATIVE)
== END 2025-02-18 14:19 | disposition home or self-care (01) ==
LOC: LAB 14:18
PROVIDERS: PCP Nurse Practitioner Family; Visit Provider Family Medicine
DX: R30.0 Dysuria (principal); R41.82 Altered mental status, unspecified
CPT/HCPCS: 81003

== ENCOUNTER 2025-04-05 15:39 | Emergency (ER) | payer MEDICARE, MEDICAID, SELFPAY ==
[2025-04-05 15:56] VITALS: BP 128/97; PULSE 74; TEMP 36.4; O2SAT 97; BMI 29.8
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
[2025-04-05] MEDS: BACITRACIN OINTMENT 28.4 GM TUBE 1 APPLIC TOPICAL (16:35)
[2025-04-05] MEDS: DIPHTH,PERTUSS(ACELL),TET VAC 0.5 ML SYRINGE IM (16:36)
== END 2025-04-05 17:55 | disposition home or self-care (01) ==
PROVIDERS: Emergency Provider Emergency Medicine; PCP Nurse Practitioner Family
DX: T20.16XA Burn of first degree of forehead and cheek, initial encounter (principal); T31.0 Burns involving less than 10% of body surface; X08.8XXA Exposure to other specified smoke, fire and flames, initial encounter; F17.210 Nicotine dependence, cigarettes, uncomplicated; Z23 Encounter for immunization
CPT/HCPCS: 90471; 90715; 99283